=== PATIENT | female | born 1945 | race Hispanic/Latino ===

== ENCOUNTER 2016-10-21 09:54 | Inpatient (IN) | payer MEDICARE, OTHER ==
[2016-10-21 09:54] VITALS: BMI 26.5
--- NOTE | 2016-10-21 10:02 | C.PDOC ---
History Of Present Illness 71 y/o female presents to ED sent by PMD for non-healing infected left foot wound. Patient states wound getting worse for x2 months. Patietn denies fever or weakness but reports "a lot of pain" and intermittent N/V. No other complaints at this time. Time Seen by Provider: 10/21/16 10:01 Chief Complaint (Nursing): Abnormal Skin Integrity History Per: Patient History/Exam Limitations: no limitations Onset/Duration Of Symptoms: Days Location Of Injury: Left: Foot (Non-healed wound) Quality Of Symptoms: Painful Past Medical History Reviewed: Historical Data, Nursing Documentation, Vital Signs Vital Signs: Last Vital Signs Temp 98.0 F 10/22/16 16:00 Pulse 96 H 10/22/16 16:00 Resp 20 10/22/16 16:00 BP 114/57 L 10/22/16 16:00 Pulse Ox 97 10/22/16 16:00 - Medical History PMH: Anemia, Anxiety, CHF, Depression (BROTHER LAST YEAR), Diabetes, HTN, Hypercholesterolemia, Chronic Kidney Disease Surgical History: Appendectomy, Endoscopy (OCTOBER 2013) - [facility] Procedures ANESTH INJECT-SPIN CANAL (01/08/15) ANGIOPLASTY OF OTHER NON-CORONARY VESSEL(S) (03/01/14) ATHERECTOMY OF OTHER NON-CORONARY VESSEL(S) (03/01/14) DRAINAGE OF LEFT PLEURAL CAVITY, PERCUTANEOUS APPROACH (10/10/15) EXERCISE TREATMENT OF MUSCULOSK WHOLE USING ASSIST EQUIPMENT (10/17/15) GAIT TRAINING/AMBULAT TREATMENT USING ASSIST EQUIPMENT (10/17/15) HOME MANAGEMENT TREATMENT USING ASSIST EQUIPMENT (10/17/15) IMMOBILIZ/WOUND ATTN NEC (06/24/13) INJECT STEROID (01/08/15) INJECT/INFUSE NEC (01/08/14) INSEJ OF DRUG-ELUTING STENT(S) OF OTH PERIPHERAL VESSEL(S) (03/01/14) INSERTION OF TWO VASCULAR STENTS (03/01/14) INTRODUCE OF OTH ANTI-INFECT INTO PERIPH VEIN, PERC APPROACH (10/17/15) PROCEDURE ON SINGLE VESSEL (03/01/14) SPINAL CANAL INJECT NEC (01/08/15) VACCINATION NEC (11/29/14) Family History: States: Unknown Family Hx - Social History Hx Alcohol Use: No Hx Substance Use: No Review Of Systems Except As Marked, All Systems Reviewed And Found Negative. Constitutional: Negative for: Fever, Chills Cardiovascular: Negative for: Chest Pain Respiratory: Negative for: Shortness of Breath Gastrointestinal: Negative for: Nausea, Vomiting, Diarrhea Neurological: Negative for: Weakness, Numbness Physical Exam - Physical Exam Appears: Non-toxic, No Acute Distress Skin: Normal Color, Warm Head: Atraumatic, Normacephalic Oral Mucosa: Moist Gastrointestinal/Abdominal: Soft, No Tenderness, No Guarding, No Rebound Extremity: No Tenderness, Other (6cm LAC on left lateral foot, surrounding Erythema) Pulses: Left Dorsalis Pedis: Decreased, Right Dorsalis Pedis: Decreased Neurological/Psych: Oriented x3, Normal Speech, Normal Cognition, Normal Sensation ED Course And Treatment - Laboratory Results Result Diagrams: 10/22/16 07:18 10/22/16 07:18 O2 Sat by Pulse Oximetry: 99 (RA) Pulse Ox Interpretation: Normal Disposition - Disposition Disposition: HOSPITALIZED Disposition Time: 11:20 Condition: STABLE - Clinical Impression Clinical Impression: Cellulitis of foot, Peripheral vascular disease, Foot ulcer - PA / FLOOR STEWARD/STEWARDESS / Resident Statement MD/ has reviewed & agrees with the documentation as recorded. MD/ has examined the patient and agrees with the treatment plan. - Scribe Statement The provider has reviewed the documentation as recorded by the Reena Garcia All medical record entries made by the Reena were at my direction and personally dictated by me. I have reviewed the chart and agree that the record accurately reflects my personal performance of the history, physical exam, medical decision making, and the department course for this patient. I have also personally directed, reviewed, and agree with the discharge instructions and disposition.
[2016-10-21] MEDS ORDERED: Piperacill/Tazo 3.375gm in Dex 3.375 GM/50 ML BAG IVPB STA (10:16)
--- NOTE | 2016-10-21 10:59 | RAD ---
HISTORY: pre op COMPARISON: No prior. FINDINGS: LUNGS: No active pulmonary disease. PLEURA: No significant pleural effusion identified, no pneumothorax apparent. CARDIOVASCULAR: Cardiomegaly. No evidence of acute, significant cardiovascular disease. OSSEOUS STRUCTURES: No significant abnormalities. VISUALIZED UPPER ABDOMEN: Normal. OTHER FINDINGS: None. IMPRESSION: No active disease.
[2016-10-21 11:27] LABS: BASO # 0.1 K/uL (0.0-0.2); BASO % 0.9 % (0.0-2.0); EOS # 0.3 K/uL (0.0-0.7); EOS % 2.6 % (0.0-4.0); HEMATOCRIT 30.9 % (34.0-47.0); LYMPH # 1.7 K/uL (1.0-4.3); LYMPH % 14.3 % (20.0-40.0); MEAN CELL VOLUME 86.5 fL (81.0-99.0); MEAN CORPUSCULAR HEMOGLOBIN 28.5 pg (27.0-31.0); MEAN PLATELET VOLUME 10.3 fL (7.2-11.7); MONO # 1.1 K/uL (0.0-0.8); MONO % 9.1 % (0.0-10.0); RED CELL DISTRIBUTION WIDTH 12.4 % (11.5-14.5); WHITE BLOOD COUNT 11.8 K/uL (4.8-10.8)
--- NOTE | 2016-10-21 11:32 | CP.PCM.HP ---
History of Present Illness - History of Present Illness History of Present Illness: CC: Dr. Melendez sent me in HPI: 71 yo female with PMHx of CKD stage III, CHF?, HTN, CAD, DM2, anxiety, anemia of chronic disease, chronic low back pain presents to the ED at the instruction of Dr. Melendez for care for an ulcer on her left foot. assisted with any clarification in Ukrainian. Pt states that ulcer began as a cut on her foot 3 months ago and it became progressively worse for the past month. She reports it hurts at times, especially when she walks on it or tried to place any pressure. She states it only became as bad as it is now for the past month. As per pt, she was recently seen at [facility] for the same wound and was sent home with topical collagenase santyl. Patient was seen by Dr. eMlendez in his office on Tuesday 10/17 and told to come in today 10/21 for wound debridement. Pt reports no pain other than at the wound site, with some pain in the area of the foot surrounding the wound as well. Pt's reports that her sugars are "usually pretty good" and states they are typically in the 150s or higher. Pt denies fever, chills, headache, dizziness, vision changes, sore throat, chest pain, palpitations, shortness of breath, cough, abd pain, nausea, vomiting, or bowel/bladder pain. She does admit to some leg swelling and pain at the wound site. Patient denies any recent travel/sick contacts. PMD: Dr. Gonzalez ALL: NKDA PMH: CKD stage III, CHF?, HTN, CAD, DM2, anxiety, anemia of chronic disease, chronic low back pain Surgery: appendectomy Medications: Hydralazine 50mg, Losartan potassium 100mg, HCTZ 25mg, Allopurinol 100mg, Torsemide 100mg, Atorvastatin 20mg, Lantus, Iron 65mg, Vit D3 5000IU, Bactrim DS, Esomeprazole 40mg Family history: not contributory Social History: Lives with in [place] , denies any smoking , ETOH or drug abuse ROS: Pt denies fever, chills, headache, dizziness, vision changes, chest pain, shortness of breath, cough, nausea, vomiting, or bowel/bladder pain. Present on Admission - Present on Admission Any Indicators Present on Admission: No Review of Systems - Constitutional Constitutional: As Per HPI. absent: Chills, Fever - EENT Eyes: As Per HPI. absent: Change in Vision Ears: As Per HPI. absent: Dizziness Nose/Mouth/Throat: As Per HPI. absent: Dysphagia, Sore Throat - Cardiovascular Cardiovascular: As Per HPI, Leg Edema, Pedal Edema. absent: Chest Pain, Dyspnea , Dyspnea on Exertion, Palpitations - Respiratory Respiratory: As Per HPI. absent: Cough, Dyspnea on Exertion, Wheezing, Chest Congestion - Gastrointestinal Gastrointestinal: As Per HPI. absent: Abdominal Pain, Constipation, Diarrhea, Nausea, Vomiting - Genitourinary Genitourinary: As Per HPI. absent: Dysuria, Hematuria, Pyuria - Musculoskeletal Musculoskeletal: As Per HPI. absent: Back Pain, Numbness, Stiffness, Tingling - Integumentary Integumentary: As Per HPI, Swelling (b/l feet), Wounds (L heel). absent: Dry Skin - Neurological Neurological: As Per HPI. absent: Dizziness, Headaches - Endocrine Endocrine: As Per HPI. absent: Polydipsia, Polyphagia, Polyuria - Hematologic/Lymphatic Hematologic: As Per HPI. absent: Easy Bleeding, Easy Bruising, Lymphadenopathy Past Patient History - Infectious Disease Hx of Infectious Diseases: None - Tetanus Immunizations Tetanus Immunization: Unknown - Past Medical History & Family History Past Medical History?: Yes - Past Social History Smoking Status: Never Smoked - CARDIAC Hx Congestive Heart Failure: Yes Hx Hypercholesterolemia: Yes Hx Hypertension: Yes Hx Peripheral Vascular Disease: Yes - PULMONARY Hx Respiratory Disorders: No - NEUROLOGICAL Hx Neurological Disorder: No - HEENT Hx Cataracts: Yes - RENAL Hx Chronic Kidney Disease: Yes - ENDOCRINE/METABOLIC Hx Endocrine Disorders: Yes Hx Diabetes Mellitus Type 2: Yes - HEMATOLOGICAL/ONCOLOGICAL Hx Anemia: Yes Hx Human Immunodeficiency Virus (HIV): No - INTEGUMENTARY Hx Dermatological Problems: No (VERY PALE) - MUSCULOSKELETAL/RHEUMATOLOGICAL Hx Degenerative Joint Disease: Yes Hx Falls: No - GENITOURINARY/GYNECOLOGICAL Hx Urinary Tract Infection: Yes - PSYCHIATRIC Hx Anxiety: Yes Hx Depression: Yes (BROTHER LAST YEAR) Hx Substance Use: No - SURGICAL HISTORY Hx Appendectomy: Yes - ANESTHESIA Hx Anesthesia: Yes Hx Anesthesia Reactions: No Hx Malignant Hyperthermia: No Meds Allergies/Adverse Reactions: Allergies Allergy/AdvReac Type Severity Reaction Status Date / Time No Known Allergies Allergy Verified 10/21/16 09:57 Physical Exam - Constitutional Appears: Non-toxic, No Acute Distress - Head Exam Head Exam: ATRAUMATIC, NORMAL INSPECTION, NORMOCEPHALIC - Eye Exam Eye Exam: EOMI, Normal appearance, PERRL. absent: Conjunctival injection, Scleral icterus Pupil Exam: NORMAL ACCOMODATION - ENT Exam ENT Exam: Mucous Membranes Moist - Neck Exam Neck exam: Positive for: Normal Inspection. Negative for: Tenderness - Respiratory Exam Respiratory Exam: Clear to Auscultation Bilateral, NORMAL BREATHING PATTERN. absent: Accessory Muscle Use, Rales, Rhonchi, Wheezes, Respiratory Distress - Cardiovascular Exam Cardiovascular Exam: REGULAR RHYTHM, RRR, +S1, +S2 - GI/Abdominal Exam GI & Abdominal Exam: Normal Bowel Sounds, Soft. absent: Firm, Guarding, Rigid, Tenderness - Extremities Exam Extremities exam: Positive for: pedal edema (L > R), tenderness (LLE), pedal pulses present (present but decreased pulses b/l) Additional comments: 6cm X 3 cm open wound non draining with erythematous border - Back Exam Back exam: NORMAL INSPECTION. absent: rash noted - Neurological Exam Neurological exam: Alert, Oriented x3 - Psychiatric Exam Psychiatric exam: Anxious - Skin Skin Exam: Dry, Erythema (L lateral foot) Results - Vital Signs Recent Vital Signs: Last Vital Signs Temp 98.8 F 10/21/16 09:58 Pulse 70 10/21/16 09:58 Resp 17 10/21/16 09:58 BP 171/67 H 10/21/16 09:58 Pulse Ox 99 10/21/16 10:02 - Labs Result Diagrams: 10/21/16 11:22 10/21/16 12:18 Assessment & Plan - Assessment and Plan (Free Text) Assessment: 71 yo female with PMHx of CKD stage III, CHF?, HTN, CAD, DM2, anxiety, anemia of chronic disease, chronic low back pain presents to the ED at the instruction of Dr. Melendez for care for an ulcer on her left foot. Plan: Left lateral foot ulcer -likely diabetic foot ulcer -Velazco stage 2 diabetic foot ulcer without infection/ischemia noted on Left lateral aspect of foot -Left heel x-ray: limited vsiualization of anterior calcaneus. No acute displaced fracture. -possible PAD- f/u arterial duplex scan and arterial PVR/SEG -f/u blood culture -SCDs c/i -Zosyn 2.25gm IVPB Q8H renally dosed -Vancomycin 500mg IVPB Qdaily renally dosed -Lasix 40mg IVP BID for 2 days for LE edema -Physical therapy -ID: Dr Wellington consulted -Surgery: Dr Melendez consulted CKD Stage III -BUN:Cr on admission 75:2 with estimated GFR 25% -Nephrology: Dr Ambrose consulted HTN -Hydralazine 50mg po bid -HCTZ 25mg po daily -Losartan 100mg po daily -Torsemide 100mg po daily CAD -Hydralazine 50mg po bid -HCTZ 25mg po daily -Losartan 100mg po daily -Crestor 10mg po hs -f/u Lipid panel DM2 -RISS -Accucheck ACHS -f/u HgbA1c Anxiety -Monitor Anemia of chronic disease -H&H on admission is 10.2 and 30.9 -Monitor for acute changes -Dr. Ambrose nephrology consulted Chronic LBP -no acute complaints on admission -Monitor CHF? -As per medical records patient has hx of CHF -Echo in 2016 in medical records is unremarkable with normal EF -no acute complaints this admission -continue home med Torsemide 100mg po daily -Lasix 40mg IVP BID for 2 days PPX -Heparin 5000U SC Q12 -Protonix 40mg po daily -Heart healthy moderate consistent carb diet -SCDs c/i -PT Plan discussed with Dr. Ramez Barnes PGY1
[2016-10-21] MEDS ORDERED: Piperacillin/Tazobact 3.375 gm 100 ML IVPB ONE (11:44)
--- NOTE | 2016-10-21 12:47 | RAD ---
PROCEDURE: Radiographs of the left calcaneus/hindfoot. HISTORY: foot wound COMPARISON: None available. TECHNIQUE: Frontal and lateral radiographs of the calcaneus. FINDINGS: Limited visualization of the anterior calcaneus. No acute displaced fracture or joint dislocation. No calcaneal spur. Dense vascular calcification. Soft tissues appear grossly unremarkable. No evidence of radiopaque foreign body. IMPRESSION: Limited visualization of the anterior calcaneus. No acute displaced fracture identified. Please note MRI without and with IV contrast is most sensitive in detection of osteomyelitis.
[2016-10-21 12:52] LABS: POTASSIUM 3.7 mmol/L (3.6-5.2)
[2016-10-21 12:54] LABS: ALB/GLOB RATIO 0.9 (1.0-2.1); BILIRUBIN,TOTAL 0.5 mg/dL (0.2-1.3); TOTAL PROTEIN 5.8 g/dL (6.3-8.3)
[2016-10-21 12:55] LABS: CALCIUM 7.2 mg/dl (8.6-10.4)
[2016-10-21] MEDS ORDERED: Sodium Chloride 0.45% 1,000 ML IV SCH (17:30)
[2016-10-21] MEDS: Pantoprazole 40 mg EC Tab PO SCH (17:48)
[2016-10-21] MEDS: (Novolog) Insulin Aspart, Recombinant 100 u/ml 10 ml vial SC SCH ×2 (17:48→21:17)
[2016-10-21] MEDS: Piperacillin/Tazobact 2.25 GM in Sodium Chloride 100 ML IVPB SCH (21:00)
--- NOTE | 2016-10-21 21:06 | CP.PCM.CON ---
History of Present Illness - History of Present Illness History of Present Illness: REASONS FOR CONSULT : CKD STAGE 4 .. WITH eGFR 25 ML / M ANEMIA OF CKD .. PT RECIEVES RANDALL AT MY OFFICE ALL PREVIOUS EMR REVIEWD .. LABS REVIEWED THOROUGHLY .. PT WAS SEEN AND EXAMNED PT IS WELL KNOWN TO ME , WITH MULTIPLE MEDICAL PROBLEMS AND FREQUENT ADMISSIONS HPI: 71 yo female with PMHx of CKD stage III, CHF?, HTN, CAD, DM2, anxiety, anemia of chronic disease, chronic low back pain presents to the ED at the instruction of Dr. Melendez for care for an ulcer on her left foot. assisted with any clarification in Pashto. Pt states that ulcer began as a cut on her foot 3 months ago and it became progressively worse for the past month. She reports it hurts at times, especially when she walks on it or tried to place any pressure. She states it only became as bad as it is now for the past month. As per pt, she was recently seen at [facility] for the same wound and was sent home with topical collagenase santyl. Patient was seen by Dr. Melendez in his office on Tuesday 10/17 and told to come in today 10/21 for wound debridement. Pt reports no pain other than at the wound site, with some pain in the area of the foot surrounding the wound as well. Pt's reports that her sugars are "usually pretty good" and states they are typically in the 150s or higher. Pt denies fever, chills, headache, dizziness, vision changes, sore throat, chest pain, palpitations, shortness of breath, cough, abd pain, nausea, vomiting, or bowel/bladder pain. She does admit to some leg swelling and pain at the wound site. Patient denies any recent travel/sick contacts. PMD: Dr. Gonzalez ALL: NKDA PMH: CKD stage III, CHF?, HTN, CAD, DM2, anxiety, anemia of chronic disease, chronic low back pain Surgery: appendectomy Medications: Hydralazine 50mg, Losartan potassium 100mg, HCTZ 25mg, Allopurinol 100mg, Torsemide 100mg, Atorvastatin 20mg, Lantus, Iron 65mg, Vit D3 5000IU, Bactrim DS, Esomeprazole 40mg Family history: not contributory Social History: Lives with in [place] , denies any smoking , ETOH or drug abuse ROS: Pt denies fever, chills, headache, dizziness, vision changes, chest pain, shortness of breath, cough, nausea, vomiting, or bowel/bladder pain. Past Patient History - Infectious Disease Hx of Infectious Diseases: None - Tetanus Immunizations Tetanus Immunization: Unknown - Past Medical History & Family History Past Medical History?: Yes - Past Social History Smoking Status: Never Smoked - CARDIAC Hx Congestive Heart Failure: Yes Hx Hypercholesterolemia: Yes Hx Hypertension: Yes Hx Peripheral Vascular Disease: Yes - PULMONARY Hx Respiratory Disorders: No - NEUROLOGICAL Hx Neurological Disorder: No - HEENT Hx Cataracts: Yes - RENAL Hx Chronic Kidney Disease: Yes - ENDOCRINE/METABOLIC Hx Endocrine Disorders: Yes Hx Diabetes Mellitus Type 2: Yes - HEMATOLOGICAL/ONCOLOGICAL Hx Anemia: Yes Hx Human Immunodeficiency Virus (HIV): No - INTEGUMENTARY Hx Dermatological Problems: No (VERY PALE) - MUSCULOSKELETAL/RHEUMATOLOGICAL Hx Degenerative Joint Disease: Yes Hx Falls: No - GENITOURINARY/GYNECOLOGICAL Hx Urinary Tract Infection: Yes - PSYCHIATRIC Hx Anxiety: Yes Hx Depression: Yes (BROTHER LAST YEAR) Hx Substance Use: No - SURGICAL HISTORY Hx Appendectomy: Yes - ANESTHESIA Hx Anesthesia: Yes Hx Anesthesia Reactions: No Hx Malignant Hyperthermia: No Meds Allergies/Adverse Reactions: Allergies Allergy/AdvReac Type Severity Reaction Status Date / Time No Known Allergies Allergy Verified 10/21/16 09:57 - Medications Medications: Current Medications Furosemide (Lasix) 40 mg IVP BID [facility] Stop: 10/23/16 00:00 Last Admin: 10/21/16 19:00 Dose: 40 mg Heparin Sodium (Porcine) (Heparin) 5,000 units SC Q12 [facility] Hydralazine HCl (Apresoline) 50 mg PO BID [facility] Last Admin: 10/21/16 17:48 Dose: 50 mg Hydrochlorothiazide (Hydrodiuril) 25 mg PO DAILY [facility] Piperacillin Sod/Tazobactam (Sod 2.25 gm/ Sodium Chloride) 100 mls @ 200 mls/ hr IVPB Q8H [facility] Vancomycin HCl 500 mg/ Sodium (Chloride) 100 mls @ 100 mls/hr IVPB DAILY [facility] Sodium Chloride (Sodium Chloride 0.45%) 1,000 mls @ 60 mls/hr IV .[id number] [facility] Last Admin: 10/21/16 17:47 Dose: 60 mls/hr Insulin Aspart (Novolog) 0 unit SC ACHS [facility] PRN Reason: Protocol Last Admin: 10/21/16 17:48 Dose: Not Given Losartan Potassium (Cozaar) 100 mg PO DAILY [facility] Pantoprazole Sodium (Protonix Ec Tab) 40 mg PO DAILY [facility] Last Admin: 10/21/16 17:48 Dose: 40 mg Rosuvastatin Calcium (Crestor) 10 mg PO HS [facility] Torsemide (Demadex) 100 mg PO DAILY [facility] Results - Vital Signs Recent Vital Signs: Last Vital Signs Temp 98.6 F 10/21/16 16:00 Pulse 92 H 10/21/16 16:00 Resp 20 10/21/16 16:00 BP 146/80 10/21/16 19:00 Pulse Ox 97 10/21/16 16:00 - Labs Result Diagrams: 10/21/16 11:22 10/21/16 12:18 Labs: Laboratory Results - last 24 hr 10/21/16 10/21/16 10/21/16 11:22 12:18 12:18 WBC 11.8 H RBC 3.57 L Hgb 10.2 L Hct 30.9 L MCV 86.5 D MCH 28.5 MCHC 33.0 RDW 12.4 Plt Count 327 MPV 10.3 Neut % (Auto) 73.1 Lymph % (Auto) 14.3 L [place] % (Auto) 9.1 Eos % (Auto) 2.6 Baso % (Auto) 0.9 Neut # 8.6 H Lymph # 1.7 York # 1.1 H Eos # 0.3 Baso # 0.1 PT 10.6 INR 1.0 APTT 27 Sodium 135 Potassium 3.7 Chloride 104 Carbon Dioxide 20 L Anion Gap 15 BUN 75 H Creatinine 2.0 H Est GFR ( Amer) 30 Est GFR (Non-Af Amer) 25 POC Glucose (mg/dL) Random Glucose 141 H Calcium 7.2 L Total Bilirubin 0.5 AST 19 ALT 17 Alkaline Phosphatase 67 Total Protein 5.8 L Albumin 2.8 L Globulin 3.0 Albumin/Globulin Ratio 0.9 L 10/21/16 16:32 WBC RBC Hgb Hct MCV MCH MCHC RDW Plt Count MPV Neut % (Auto) Lymph % (Auto) York % (Auto) Eos % (Auto) Baso % (Auto) Neut # Lymph # York # Eos # Baso # PT INR APTT Sodium Potassium Chloride Carbon Dioxide Anion Gap BUN Creatinine Est GFR ( Amer) Est GFR (Non-Af Amer) POC Glucose (mg/dL) 78 Random Glucose Calcium Total Bilirubin AST ALT Alkaline Phosphatase Total Protein Albumin Globulin Albumin/Globulin Ratio Assessment & Plan - Assessment and Plan (Free Text) Assessment: CKD .. STAGE 4 .. eGFR AROUND 25 ML / M .. STABLE ANEMIA OF CKD .. RECIEVES RANDALL IN MY OFFICE Q 3 WEEKS FOR HGB < 10 .. HER HGB NOW IS OK R/O OTHER CAUSES FOR ANEMIA LIKE IRON DEFFICIENCY HYPERURECEMIA .. ON ALLOPURINOL .. WITH AIM OF URIC ACID < 6.0 INFECTED DIABETIC FOOT .. HER ADMITTING DIAGNOSIS .. MULTIPLE CO MORBIDITIES P : C/O CURRENT CARE C/O PRESENT MEDS RENAL AND DIABETIC DIET .. 2 G NA .. 2 G K .. 50 G PROTEIN .. 1800 KELLEY ADA .. 1000 CC FR NEEDS DEITARY CONSULT AND COUNSELING C/O DIURETICS FOR EDEMA .. WELL FR THANK Lisandra ASH F/U - Date & Time Date: 10/21/16 Time: 19:00
[2016-10-21] MEDS: Ergocalciferol 50,000 Intl Units Cap PO SCH (21:56)
[2016-10-22] MEDS ORDERED: Oxycodone/Acetaminophen 5/325 mg Tab PO STA (01:24)
[2016-10-22] MEDS: Piperacillin/Tazobact 2.25 GM in Sodium Chloride 100 ML IVPB SCH ×3 (06:00→21:15)
--- NOTE | 2016-10-22 07:04 | CP.PCM.PN ---
<MollyKacey - Last Filed: 10/22/16 18:41> Subjective - Date & Time of Evaluation Date of Evaluation: 10/22/16 Time of Evaluation: 08:45 - Subjective Subjective: PGY1 Medicine note for Dr. Myrick Pt seen and examined at bedside. Nursing reports pt had some pain overnight and was given percocet, which resolved the pain. Today, pt is nauseous and dry heaving without bringing anything up. Pt was given zofran and breakfast, since she states she has not eaten since breakfast the previous day although dinner was ordered. Pt states her heel still hurts, but not as badly as it did last night. Pt denies fever, chills, headache, dizziness, chest pain, palpitations, shortness of breath, cough, abdominal pain or leg swelling. Objective - Vital Signs/Intake and Output Vital Signs (last 24 hours): Temp Pulse Resp BP Pulse Ox 98.1 F 77 20 146/61 96 10/22/16 00:03 10/22/16 00:03 10/22/16 00:03 10/22/16 00:03 10/22/16 00:03 Intake and Output: 10/22/16 10/22/16 06:59 18:59 Intake Total 400 Balance 400 - Medications Medications: Current Medications Ascorbic Acid (Vitamin C 500 Mg Tab) 500 mg PO DAILY [facility] Ergocalciferol (Drisdol 50,000 Intl Units Cap) 1 cap PO Q7D [facility] Last Admin: 10/21/16 21:56 Dose: 1 cap Furosemide (Lasix) 40 mg IVP BID [facility] Stop: 10/23/16 00:00 Last Admin: 10/21/16 19:00 Dose: 40 mg Heparin Sodium (Porcine) (Heparin) 5,000 units SC Q12 [facility] Last Admin: 10/21/16 21:06 Dose: 5,000 units Hydralazine HCl (Apresoline) 50 mg PO BID [facility] Last Admin: 10/21/16 17:48 Dose: 50 mg Hydrochlorothiazide (Hydrodiuril) 25 mg PO DAILY [facility] Piperacillin Sod/Tazobactam (Sod 2.25 gm/ Sodium Chloride) 100 mls @ 200 mls/ hr IVPB Q8H [facility] Last Admin: 10/22/16 06:00 Dose: 200 mls/hr Vancomycin HCl 500 mg/ Sodium (Chloride) 100 mls @ 100 mls/hr IVPB DAILY [facility] Insulin Aspart (Novolog) 0 unit SC ACHS [facility] PRN Reason: Protocol Last Admin: 10/21/16 21:17 Dose: Not Given Losartan Potassium (Cozaar) 100 mg PO DAILY [facility] Pantoprazole Sodium (Protonix Ec Tab) 40 mg PO DAILY [facility] Last Admin: 10/21/16 17:48 Dose: 40 mg Rosuvastatin Calcium (Crestor) 10 mg PO HS [facility] Last Admin: 10/21/16 21:06 Dose: 10 mg Sevelamer Carbonate (Renvela) 0.8 gm PO TIDCC ELINA Torsemide (Demadex) 100 mg PO DAILY [facility] Vitamin B Complex/Vit C/Folic Acid (Nephro-Alonzo) 1 tab PO DAILY [facility] - Labs Labs: 10/21/16 11:22 10/21/16 12:18 PT 10.6 SECONDS (9.7-12.2) 10/21/16 12:18 INR 1.0 10/21/16 12:18 APTT 27 SECONDS (21-34) 10/21/16 12:18 - Constitutional Appears: Non-toxic, In Acute Distress (nauseous) - Head Exam Head Exam: ATRAUMATIC, NORMAL INSPECTION, NORMOCEPHALIC - Eye Exam Eye Exam: Normal appearance. absent: Conjunctival injection, Scleral icterus Pupil Exam: NORMAL ACCOMODATION - ENT Exam ENT Exam: Mucous Membranes Moist - Neck Exam Neck Exam: Full ROM, Normal Inspection - Respiratory Exam Respiratory Exam: Clear to Ausculation Bilateral. absent: Accessory Muscle Use , Rales, Rhonchi, Wheezes, Respiratory Distress - Cardiovascular Exam Cardiovascular Exam: REGULAR RHYTHM, RRR, +S1, +S2. absent: Murmur - GI/Abdominal Exam GI & Abdominal Exam: Soft, Normal Bowel Sounds. absent: Firm, Guarding, Rigid, Tenderness - Extremities Exam Extremities Exam: Normal Capillary Refill, Pedal Edema (L > R) Additional comments: 6cm X 3 cm Velazco 2 diabetic ulcer open non draining with erythematous border decreased pulses b/l worse on left - Back Exam Back Exam: NORMAL INSPECTION. absent: rash noted - Neurological Exam Neurological Exam: Alert, Awake, Oriented x3 - Psychiatric Exam Psychiatric exam: Anxious - Skin Skin Exam: Dry, Intact, Normal Color, Warm Assessment and Plan - Assessment and Plan (Free Text) Assessment: 71 yo female with PMHx of CKD stage III, CHF?, HTN, CAD, DM2, anxiety, anemia of chronic disease, chronic low back pain presents to the ED at the instruction of Dr. Melendez for care for an ulcer on her left foot Plan: Left lateral foot ulcer -likely diabetic foot ulcer -Velazco stage 2 diabetic foot ulcer without infection/ischemia noted on Left lateral aspect of foot -Left heel x-ray: limited vsiualization of anterior calcaneus. No acute displaced fracture. -possible PAD- f/u arterial duplex scan and arterial PVR/SEG -blood culture prelim negative -SCDs c/i -Zosyn 2.25gm IVPB Q8H renally dosed -Vancomycin 500mg IVPB Qdaily renally dosed -Lasix 40mg IVP BID for 2 days for LE edema -Tramadol 25mg po q6 PRN pain -Tylenol with codeine 1 po q6 PRN pain -Ketoconazole cream 2gm top bid -Venous dopplers negative b/l -Physical therapy -Wound care -ID: Dr Wellington consulted -Surgery: Dr Melendez consulted Peripheral Arterial Disease -Arterial PVR/SEG: Right negative; Left secerely decreased perfusion of the LLE noted at superficial, popliteal, and tibial A levels -LE Arterial scan: R possible occlusion of R posterior tibial A [50-75% stenosis of right mid popliteal A]; L possible occlusion of L proximal and sital posterior and proximal anterior tibial arteries; greater than 75% stenosis of the left distal superficial femoral and mid popliteal arteries; 50- 75% stenosis of L proximal poplitearl artery; recommend angiogram with endovascular repair -IR: Dr. Roman consulted CKD Stage IV -BUN:Cr on admission 75:2 with estimated GFR 25% -Nephrology: Dr Ambrose consulted HTN -Hydralazine 50mg po bid -HCTZ 25mg po daily -Losartan 100mg po daily -Torsemide 100mg po daily CAD -Hydralazine 50mg po bid -HCTZ 25mg po daily -Losartan 100mg po daily -Crestor 10mg po hs -Lipid panel TG 248 Cholesterol 217 LDL 113 HDL 39 DM2 -RISS -Accucheck ACHS -HgbA1c 12.2 Anxiety -Monitor Anemia of chronic disease -H&H on admission is 10.2 and 30.9 -Monitor for acute changes -Dr. Ambrose nephrology consulted Chronic LBP -no acute complaints on admission -Monitor CHF? -As per medical records patient has hx of CHF -Echo in 2016 in medical records is unremarkable with normal EF -no acute complaints this admission -continue home med Torsemide 100mg po daily -Lasix 40mg IVP BID for 2 days PPX -Heparin 5000U SC Q12 -Protonix 40mg po daily -Heart healthy moderate consistent carb diet -SCDs c/i -PT Plan discussed with Dr. Ramez Barnes PGY1 <Benson Myrick Jr. - Last Filed: 10/25/16 13:29> Objective - Vital Signs/Intake and Output Vital Signs (last 24 hours): Temp Pulse Resp BP Pulse Ox 98 F 93 H 20 160/63 H 98 10/25/16 08:00 10/25/16 08:00 10/25/16 08:00 10/25/16 08:00 10/25/16 08:00 Intake and Output: 10/25/16 10/25/16 06:59 18:59 Intake Total 820 Balance 820 - Medications Medications: Current Medications Acetylcysteine (Acetylcysteine 20%) 6 ml PO BID [facility] Last Admin: 10/25/16 11:32 Dose: 6 ml Alprazolam (Xanax) 0.25 mg PO Q8H PRN PRN Reason: Anxiety Stop: 10/30/16 07:20 Last Admin: 10/24/16 00:11 Dose: 0.25 mg Ascorbic Acid (Vitamin C 500 Mg Tab) 500 mg PO DAILY [facility] Last Admin: 10/25/16 09:59 Dose: 500 mg Brimonidine Tartrate (Alphagan 0.2% Opht) 0 ml OD TID [facility] Last Admin: 10/25/16 09:59 Dose: 1 applic Cilostazol (Pletal) 50 mg PO BID [facility] Last Admin: 10/25/16 10:10 Dose: 50 mg Clotrimazole (Lotrimin 1%) 0 gm TOP BID [facility] Last Admin: 10/25/16 10:10 Dose: 1 applic Ergocalciferol (Drisdol 50,000 Intl Units Cap) 1 cap PO Q7D [facility] Last Admin: 10/21/16 21:56 Dose: 1 cap Escitalopram Oxalate (Lexapro) 10 mg PO DAILY [facility] Last Admin: 10/25/16 09:58 Dose: 10 mg Heparin Sodium (Porcine) (Heparin) 5,000 units SC Q12 [facility] Last Admin: 10/25/16 09:59 Dose: 5,000 units Hydralazine HCl (Apresoline) 50 mg PO BID [facility] Last Admin: 10/25/16 09:59 Dose: 50 mg Piperacillin Sod/Tazobactam (Sod 2.25 gm/ Sodium Chloride) 100 mls @ 200 mls/ hr IVPB Q8H [facility] Last Admin: 10/25/16 05:00 Dose: 200 mls/hr Vancomycin HCl 500 mg/ Sodium (Chloride) 100 mls @ 100 mls/hr IVPB DAILY [facility] Last Admin: 10/25/16 12:11 Dose: 100 mls/hr Sodium Chloride (Sodium Chloride 0.45%) 1,000 mls @ 80 mls/hr IV .[id number] [facility] Last Admin: 10/25/16 12:22 Dose: Not Given Insulin Aspart (Novolog) 0 unit SC ACHS [facility] PRN Reason: Protocol Last Admin: 10/25/16 12:40 Dose: 12 unit Insulin Glargine (Lantus) 15 unit SC HS [facility] Last Admin: 10/24/16 21:20 Dose: 15 u Latanoprost (Xalatan Opht) 0 ml OD HS [facility] Last Admin: 10/24/16 21:15 Dose: 2.5 ml Ondansetron HCl (Zofran Inj) 4 mg IVP Q6H [facility] Last Admin: 10/25/16 12:41 Dose: 4 mg Pantoprazole Sodium (Protonix Ec Tab) 40 mg PO DAILY [facility] Last Admin: 10/25/16 09:58 Dose: 40 mg Rosuvastatin Calcium (Crestor) 10 mg PO HS [facility] Last Admin: 10/24/16 21:23 Dose: 10 mg Sevelamer Carbonate (Renvela) 0.8 gm PO TIDCC [facility] Last Admin: 10/25/16 12:41 Dose: 0.8 gm Tramadol HCl (Ultram) 25 mg PO Q6H PRN PRN Reason: PAIN 1-10 Last Admin: 10/25/16 06:14 Dose: 25 mg Vitamin B Complex/Vit C/Folic Acid (Nephro-Alonzo) 1 tab PO DAILY [facility] Last Admin: 10/25/16 09:58 Dose: 1 tab - Labs Labs: 10/25/16 07:00 10/25/16 07:00 PT 10.9 SECONDS (9.7-12.2) 10/23/16 11:28 INR 1.0 10/23/16 11:28 APTT 30 SECONDS (21-34) 10/23/16 11:28 Attending/Attestation - Attestation I have personally seen and examined this patient.: Yes I have fully participated in the care of the patient.: Yes I have reviewed all pertinent clinical information, including history, physical exam and plan: Yes Notes (Text): 10/25/16 13:28 Resident note and plan of care discussed and reviewed, agree with findings and plan
[2016-10-22 07:35] LABS: BASO # 0.1 K/uL (0.0-0.2); BASO % 1.2 % (0.0-2.0); EOS # 0.4 K/uL (0.0-0.7); EOS % 4.7 % (0.0-4.0); HEMATOCRIT 31.5 % (34.0-47.0); LYMPH % 11.7 % (20.0-40.0); MEAN CELL VOLUME 85.4 fL (81.0-99.0); MEAN PLATELET VOLUME 10.2 fL (7.2-11.7); MONO # 0.8 K/uL (0.0-0.8); MONO % 10.1 % (0.0-10.0); RED CELL DISTRIBUTION WIDTH 12.7 % (11.5-14.5); WHITE BLOOD COUNT 8.2 K/uL (4.8-10.8)
[2016-10-22 07:57] LABS: POTASSIUM 3.9 mmol/L (3.6-5.2)
[2016-10-22 07:59] LABS: BILIRUBIN,TOTAL 0.5 mg/dL (0.2-1.3); TOTAL PROTEIN 6.8 g/dL (6.3-8.3)
[2016-10-22 08:00] LABS: CALCIUM 9.1 mg/dl (8.6-10.4); MAGNESIUM 2.1 mg/dL (1.6-2.3)
[2016-10-22] MEDS: Sevelamer Carb 0.8 gm/Packet PO SCH ×3 (08:06→17:56)
[2016-10-22] MEDS: (Novolog) Insulin Aspart, Recombinant 100 u/ml 10 ml vial SC SCH ×4 (08:56→21:53)
[2016-10-22] MEDS: Pantoprazole 40 mg EC Tab PO SCH (10:49)
[2016-10-22] MEDS: Multivitamin Vitamin B Complex (Nephro-Vite) Tab PO SCH (10:51)
--- NOTE | 2016-10-22 14:11 | VASCLAB ---
PROCEDURE: Lower Extremity Venous Duplex Exam. HISTORY: Leg pain PRIORS: None. TECHNIQUE: Bilateral common femoral, femoral, popliteal and posterior tibial, peroneal and great saphenous veins were evaluated. Flow was assessed with color Doppler, compressibility, assessment of phasic flow and augmentation response. Report prepared by ANGELA Barkley, RVT FINDINGS: RIGHT: 1. Common Femoral Vein: 1.1. Compressibility - Fully compressible: Thrombus - None : Flow - Phasic: Augmentation -Normal: Reflux - None. 2. Femoral Vein: 2.1. Compressibility - Fully compressible: Thrombus - None : Flow - Phasic: Augmentation -Normal: Reflux - None. 3. Popliteal Vein: 3.1. Compressibility - Fully compressible: Thrombus - None : Flow - Phasic: Augmentation -Normal: Reflux - None. 4. Posterior Tibial Vein: 4.1. Compressibility - Fully compressible: Thrombus - None: Flow - Phasic: Augmentation -Normal: Reflux - None. 5. Peroneal Vein: 5.1. Compressibility - Fully compressible: Thrombus - None: Flow - Phasic: Augmentation -Normal: Reflux - None. 6. Great Saphenous Vein: 6.1. Compressibility - Fully compressible: Thrombus - None: Flow - Phasic: Augmentation - Normal: Reflux - None. LEFT: 1. Common Femoral Vein: 1.1. Compressibility - Fully compressible: Thrombus - None: Flow - Phasic: Augmentation -Normal: Reflux - None. 2. Femoral Vein: 2.1. Compressibility - Fully compressible: Thrombus - None: Flow - Phasic: Augmentation -Normal: Reflux - None. 3. Popliteal Vein: 3.1. Compressibility - Fully compressible: Thrombus - None : Flow - Phasic: Augmentation -Normal: Reflux - None. 4. Posterior Tibial Vein: 4.1. Compressibility - Fully compressible: Thrombus - None: Flow - Phasic: Augmentation -Normal: Reflux - None. 5. Peroneal Vein: 5.1. Compressibility - Fully compressible: Thrombus - None: Flow - Phasic: Augmentation -Normal: Reflux - None. 6. Great Saphenous Vein: 6.1. Compressibility - Fully compressible: Thrombus - None: Flow - Phasic: Augmentation - Normal: Reflux - None. OTHER FINDINGS: Right: None significant. Left: None significant. IMPRESSION: Right: No evidence of deep or superficial vein thrombosis of the right lower extremity. Normal valve function noted of the right side. Left: No evidence of deep or superficial vein thrombosis of the left lower extremity. Normal valve function noted of the left side.
--- NOTE | 2016-10-22 14:12 | VASCLAB ---
STUDY DESCRIPTION: HISTORY: swelling and pain PRIORS: None. TECHNIQUE: Pulse volume recording waveforms and segmental pressures of bilateral lower extremities at multiple levels were obtained. Ankle Brachial Indices (ABIs) were calculated. Report prepared by ANGELA Barkley, RVT RIGHT LOWER EXTREMITY: * Brachial artery: Pressure - 216 mmHg. * High thigh: Pressure - 220 mmHg: Ratio - NC: PVR waveform - Pulsatile * Low thigh: Pressure - 220 mmHg: Ratio - NC PVR waveform: Pulsatile * Calf: Pressure - 220 mmHg: Ratio - NC PVR waveform: Pulsatile * Posterior tibial Artery: Pressure - 197 mmHg: Ratio - 0.91 PVR waveform: Pulsatile * Dorsalis pedis Artery: Pressure - 211 mmHg: Ratio - 0.98 PVR waveform: Pulsatile * Great toe: Pressure - mmHg: Ratio - PVR waveform: Ankle brachial index (CUCO): 0.98 LEFT LOWER EXTREMITY: * Brachial artery: Pressure - 205 mmHg. * High thigh: Pressure - 220 mmHg: Ratio - NC: PVR waveform - Pulsatile * Low thigh: Pressure - 220 mmHg: Ratio - NC PVR waveform: Reduced * Calf: Pressure - 95 mmHg: Ratio - 0.44 PVR waveform: Reduced * Posterior tibial Artery: Pressure - 44 mmHg: Ratio - 0.20 PVR waveform: Reduced * Dorsalis pedis Artery: Pressure - 76 mmHg: Ratio - 0.35 PVR waveform: Reduced * Great toe: Pressure - mmHg: Ratio - PVR waveform: Ankle brachial index (CUCO): 0.35 OTHER FINDINGS: Right: Left: IMPRESSION: Right: There was no evidence of hemodynamically significant arterial insufficiency in the right lower extremity. Left: This exam reveals severely decreased perfusion of the left lower extremity, noted at the superficial femoral, popliteal, and tibial artery levels.
--- NOTE | 2016-10-22 14:17 | VASCLAB ---
PROCEDURE: HISTORY: pvd COMPARISON: None available. TECHNIQUE: Grayscale and duplex Doppler evaluation of the bilateral common femoral, femoral, profunda femoral, popliteal, posterior tibial, anterior tibial and dorsalis pedis arteries was performed. Report prepared by ANGELA Barkley, RVT FINDINGS: RIGHT LOWER EXTREMITY: * Common Femoral Artery: Peak Systolic Velocity - 125: Doppler Waveform: Biphasic: Plaque description - Calcific * Profunda Femoral Artery: Peak Systolic Velocity - 58: Doppler Waveform: Biphasic.: Plaque description - Calcific * Femoral Artery o Proximal Segment: Peak Systolic Velocity - 96: Doppler Waveform: Biphasic: Plaque description - Calcific o Middle Segment: Peak Systolic Velocity - 137: Doppler Waveform: Biphasic: Plaque description - Calcific o Distal Segment: Peak Systolic Velocity - 92: Doppler Waveform: Biphasic: Plaque description - Calcific * Popliteal Artery o Proximal Segment: Peak Systolic Velocity - 147: Doppler Waveform: Biphasic: Plaque description - Calcific o Middle Segment: Peak Systolic Velocity - 340: Doppler Waveform: Biphasic: Plaque description - Calcific o Distal Segment: Peak Systolic Velocity - 129: Doppler Waveform: Biphasic: Plaque description - Calcific * Posterior Tibial Artery: Peak Systolic Velocity - 0: Doppler Waveform: Absent: Plaque description - Calcific * Anterior Tibial Artery: Peak Systolic Velocity - 352: Doppler Waveform: Biphasic: Plaque description - Calcific * Dorsalis Pedis Artery: Peak Systolic Velocity - 122: Doppler Waveform: Biphasic: Plaque description - Calcific LEFT LOWER EXTREMITY: * Common Femoral Artery: Peak Systolic Velocity - 148: Doppler Waveform: Biphasic: Plaque description - Calcific * Profunda Femoral Artery: Peak Systolic Velocity - 107: Doppler Waveform: Biphasic: Plaque description - Calcific * Femoral Artery o Proximal Segment: Peak Systolic Velocity - 99: Doppler Waveform: Biphasic: Plaque description - Calcific o Middle Segment: Peak Systolic Velocity - 171: Doppler Waveform: Biphasic: Plaque description - Calcific o Distal Segment: Peak Systolic Velocity - 473: Doppler Waveform: Biphasic: Plaque description - Calcific * Popliteal Artery o Proximal Segment: Peak Systolic Velocity - 273: Doppler Waveform: Biphasic: Plaque description - Calcific o Middle Segment: Peak Systolic Velocity - 624: Doppler Waveform: Biphasic: Plaque description - Calcific o Distal Segment: Peak Systolic Velocity - 64: Doppler Waveform: Biphasic: Plaque description - Calcific * Posterior Tibial Artery: Peak Systolic Velocity - 0: Doppler Waveform: Absent: Plaque description - Calcific * Anterior Tibial Artery: Peak Systolic Velocity - 0: Doppler Waveform: Absent: Plaque description - Calcific * Dorsalis Pedis Artery: Peak Systolic Velocity - 30: Doppler Waveform: Biphasic: Plaque description - Calcific OTHER FINDINGS: None. IMPRESSION: RIGHT: Possible occlusion of the right posterior tibial artery. 50-75% stenosis of the right mid popliteal artery. LEFT: Possible occlusion of the left proximal and distal posterior and proximal anterior tibial arteries. Greater than 75% stenosis of the left distal superficial femoral and mid popliteal arteries. 50-75% stenosis of the left proximal popliteal artery. Recommend angiogram with endovascular repair.
[2016-10-22] MEDS ORDERED: Acetaminophen-Codeine 300/30 mg Tab PO PRN (15:00)
--- NOTE | 2016-10-22 16:48 | CP.PCM.CON ---
History of Present Illness - History of Present Illness History of Present Illness: NEEDS VASCULAR EVAL FOR ISCHEMIC ULCER LEFT HEEL, R/O OM CONSIDER MRI LEFT CALCANEUS AGREE WITH IV RX 71 yo female presents to the ED at the instruction of Dr. Melendez for care for an ulcer on her left foot. Pt states that ulcer began as a cut on her foot 3 months ago and it became progressively worse for the past month. She reports it hurts at times, especially when she walks on it or tried to place any pressure. She states it only became as bad as it is now for the past month. As per pt, she was recently [place] [facility] and was sent home with topical collagenase santyl. Patient was seen by Dr. Melendez in his office on Thursday and told to come in today 10/21 for wound debridement. PMD: Dr. Gonzalez ALL: NKDA PMH: CKD stage III, CHF?, HTN, CAD, DM2, anxiety, anemia of chronic disease, chronic low back pain Surgery: appendectomy Medications: Hydralazine 50mg, Losartan potassium 100mg, HCTZ 25mg, Allopurinol 100mg, Torsemide 100mg, Atorvastatin 20mg, Lantus, Iron 65mg, Vit D3 5000IU, Bactrim DS, Esomeprazole 40mg Family history: not contributory Social History: Lives with in [place] , denies any smoking , ETOH or drug abuse ROS: Pt denies fever, chills, headache, dizziness, vision changes, chest pain, shortness of breath, cough, nausea, vomiting, or bowel/bladder pain. Review of Systems - Constitutional Constitutional: As Per HPI, Fever, Malaise - EENT Eyes: absent: As Per HPI, Blind Spots, Blurred Vision, Change in Vision, Decreased Night Vision, Diplopia, Discharge, Dry Eye, Exophthalmos, Floaters, Irritation, Itchy Eyes, Loss of Peripheral Vision, Pain, Photophobia, Requires Corrective Lenses, Sees Flashes, Spots in Vision, Tunnel Vision, Other Visual Disturbances, Loss of Vision, Other Ears: absent: As Per HPI, Decreased Hearing, Ear Discharge, Ear Pain, Tinnitus, Abnormal Hearing, Disequilibrium, Dizziness, Other Nose/Mouth/Throat: absent: As Per HPI, Epistaxis, Nasal Congestion, Nasal Discharge, Nasal Obstruction, Nasal Trauma, Nose Pain, Post Nasal Drip, Sinus Pain, Sinus Pressure, Bleeding Gums, Change in Voice, Dental Pain, Dry Mouth, Dysphagia, Halitosis, Hoarsness, Lip Swelling, Mouth Lesions, Mouth Pain, Odynophagia, Sore Throat, Throat Swelling, Tongue Swelling, Facial Pain, Neck Pain, Neck Mass, Other - Breasts Breasts: absent: As Per HPI, Change in Shape, Mass, Pain, Nipple Discharge, Nipple Inversion, Skin Changes, Swelling, Other - Cardiovascular Cardiovascular: absent: As Per HPI, Acrocyanosis, Chest Pain, Chest Pain at Rest , Chest Pain with Activity, Claudication, Diaphoresis, Dyspnea, Dyspnea on Exertion, Edema, Irregular Heart Rhythm, Pain Radiating to Arm/Neck/Jaw, Leg Edema, Leg Ulcers, Lightheadedness, Orthopnea, Palpitations, Paroxysmal Nocturnal Dyspnea, Pedal Edema, Radiating Pain, Rapid Heart Rate, Slow Heart Rate, Syncope, Other - Respiratory Respiratory: absent: As Per HPI, Cough, Dyspnea, Hemoptysis, Dyspnea on Exertion , Wheezing, Snoring, Stridor, Pain on Inspiration, Chest Congestion, Excessive Mucous Production, Change in Mucous Color, Pain with Coughing, Other - Gastrointestinal Gastrointestinal: absent: As Per HPI, Abdominal Pain, Belching, Bloating, Change in Bowel Habits, Change in Stool Character, Coffee Ground Emesis, Constipation, Cramping, Diarrhea, Dyspepsia, Dysphagia, Early Satiety, Excessive Flatus, Fecal Incontinence, Heartburn, Hematemesis, Hematochezia, Loose Stools, Melena, Nausea, Odynophagia, Temesmus, Vomiting, Other - Genitourinary Genitourinary: absent: As Per HPI, Change in Urinary Stream, Difficulty Urinating, Dysuria, Flank Pain, Hematuria, Pyuria, Nocturia, Urinary Incontinence, Urinary Frequency, Urinary Hesitance, Urinary Urgency, Voiding Freq/Small Amts, Freq UTI, Hx Renal/Bladder Calculi, Hx /Renal Surgery, Bladder Distension, Other - Reproductive: Female Reproductive:Female: absent: As Per HPI, Amenorrhea, Amenorrhea/ Control, Currently Menstual, Cycle <21 Days, Cycle >35 Days, Cycle Variable, Menses 1-7 Days, Menses >/= 8 Days, Menses Variable, Cycle > 4 Weeks Between, No Menses for 6 Months, Heavy Menses, Light Menses, Normal Menses, Spotting Between Cycles , S/P Hysterectomy, Menopausal, Post Menopausal, Premenarche, Abnormal Vaginal Bleeding, Dysmenorrhea, Dyspareunia, Genital Lesions, Genital Pruritis, Pelvic Pain, Prolapse Symptoms, Sexual Dysfunction, Vaginal Discharge, Vaginal Dryness , Vaginal Odor, Vaginal Pruritis, Other - Menstruation Menstruation: absent: As Per HPI, Amenorrhea, Amenorrhea/ Control, Currently Menstual, Cycle <21 Days, Cycle >35 Days, Cycle Variable, Menses 1-7 Days, Menses >/= 8 Days, Menses Variable, Cycle > 4 Weeks Between, No Menses for 6 Months, Heavy Menses, Light Menses, Normal Menses, Spotting Between Cycles , S/P Hysterectomy, Menopausal, Post Menopausal, Premenarche, Abnormal Vaginal Bleeding, Dysmenorrhea, Other - Musculoskeletal Musculoskeletal: As Per HPI - Integumentary Integumentary: As Per HPI, Skin Pain, Wounds - Neurological Neurological: absent: As Per HPI, Abnormal Gait, Abnormal Hearing, Abnormal Movements, Abnormal Speech, Behavioral Changes, Burning Sensations, Confusion, Convulsions, Disequilibrium, Dizziness, Numbness, Focal Weakness, Frequent Falls , Headaches, Lack of Coordination, Loss of Vision, Memory Loss, Paresthesias, Radicular Pain, Restless Legs, Sensory Deficit, Syncope, Tingling, Tremor, Vertigo, Weakness, Other Visual Disturbances, Other - Psychiatric Psychiatric: absent: As Per HPI, Abnormal Sleep Pattern, Anhedonia, Anxiety, Auditory Hallucinations, Behavioral Changes, Change in Appetite, Change in Libido, Confusion, Depression, Difficulty Concentrating, Hallucinations, Homicidal Ideation, Hopelessness, Irritability, Memory Loss, Mood Swings, Panic Attacks, Paranoia, Suicidal Ideation, Visual Hallucinations, Tactile Hallucinations, Other - Endocrine Endocrine: absent: As Per HPI, Change in Body Appearance, Change in Libido, Cold Intolorance, Deepening of Voice, Excessive Sweating, Fatigue, Flushing, Heat Intolorance, Increase in Ring/Shoe/Hat Size, Palpitations, Polydipsia, Polyphagia, Polyuria, Other - Hematologic/Lymphatic Hematologic: absent: As Per HPI, Easy Bleeding, Easy Bruising, Lymphadenopathy, Other Past Patient History - Infectious Disease Hx of Infectious Diseases: None - Tetanus Immunizations Tetanus Immunization: Unknown - Past Medical History & Family History Past Medical History?: Yes - Past Social History Smoking Status: Never Smoked - CARDIAC Hx Congestive Heart Failure: Yes Hx Hypercholesterolemia: Yes Hx Hypertension: Yes - PULMONARY Hx Respiratory Disorders: No - NEUROLOGICAL Hx Neurological Disorder: No - HEENT Hx Cataracts: Yes - RENAL Hx Chronic Kidney Disease: Yes - ENDOCRINE/METABOLIC Hx Diabetes Mellitus Type 2: Yes - HEMATOLOGICAL/ONCOLOGICAL Hx Anemia: Yes Hx Human Immunodeficiency Virus (HIV): No - INTEGUMENTARY Hx Dermatological Problems: No (VERY PALE) - MUSCULOSKELETAL/RHEUMATOLOGICAL Hx Degenerative Joint Disease: Yes Hx Falls: No - GENITOURINARY/GYNECOLOGICAL Hx Urinary Tract Infection: Yes - PSYCHIATRIC Hx Anxiety: Yes Hx Depression: Yes (BROTHER LAST YEAR) Hx Substance Use: No - SURGICAL HISTORY Hx Appendectomy: Yes - ANESTHESIA Hx Anesthesia: Yes Hx Anesthesia Reactions: No Hx Malignant Hyperthermia: No Meds Allergies/Adverse Reactions: Allergies Allergy/AdvReac Type Severity Reaction Status Date / Time No Known Allergies Allergy Verified 10/21/16 09:57 - Medications Medications: Current Medications Ascorbic Acid (Vitamin C 500 Mg Tab) 500 mg PO DAILY [facility] Last Admin: 10/22/16 12:07 Dose: 500 mg Ergocalciferol (Drisdol 50,000 Intl Units Cap) 1 cap PO Q7D [facility] Last Admin: 10/21/16 21:56 Dose: 1 cap Furosemide (Lasix) 40 mg IVP BID [facility] Stop: 10/23/16 00:00 Last Admin: 10/22/16 10:51 Dose: 40 mg Heparin Sodium (Porcine) (Heparin) 5,000 units SC Q12 [facility] Last Admin: 10/22/16 10:50 Dose: 5,000 units Hydralazine HCl (Apresoline) 50 mg PO BID [facility] Last Admin: 10/22/16 10:49 Dose: 50 mg Hydrochlorothiazide (Hydrodiuril) 25 mg PO DAILY [facility] Last Admin: 10/22/16 10:49 Dose: 25 mg Piperacillin Sod/Tazobactam (Sod 2.25 gm/ Sodium Chloride) 100 mls @ 200 mls/ hr IVPB Q8H [facility] Last Admin: 10/22/16 12:45 Dose: 200 mls/hr Vancomycin HCl 500 mg/ Sodium (Chloride) 100 mls @ 100 mls/hr IVPB DAILY [facility] Last Admin: 10/22/16 12:05 Dose: 100 mls/hr Insulin Aspart (Novolog) 0 unit SC ACHS [facility] PRN Reason: Protocol Last Admin: 10/22/16 16:37 Dose: 6 unit Ketoconazole (Nizoral) 2 gm TOP BID [facility] Losartan Potassium (Cozaar) 100 mg PO DAILY [facility] Last Admin: 10/22/16 10:49 Dose: 100 mg Ondansetron HCl (Zofran Inj) 4 mg IVP Q6H PRN PRN Reason: Nausea/Vomiting Pantoprazole Sodium (Protonix Ec Tab) 40 mg PO DAILY [facility] Last Admin: 10/22/16 10:49 Dose: 40 mg Rosuvastatin Calcium (Crestor) 10 mg PO HS [facility] Last Admin: 10/21/16 21:06 Dose: 10 mg Sevelamer Carbonate (Renvela) 0.8 gm PO TIDCC [facility] Last Admin: 10/22/16 12:07 Dose: 0.8 gm Torsemide (Demadex) 100 mg PO DAILY [facility] Last Admin: 10/22/16 11:55 Dose: 100 mg Tramadol HCl (Ultram) 25 mg PO Q6H PRN PRN Reason: PAIN 1-10 Vitamin B Complex/Vit C/Folic Acid (Nephro-Alonzo) 1 tab PO DAILY [facility] Last Admin: 10/22/16 10:51 Dose: 1 tab Physical Exam - Constitutional Appears: Non-toxic, Chronically Ill - Head Exam Head Exam: NORMOCEPHALIC - Eye Exam Eye Exam: PERRL. absent: Scleral icterus - ENT Exam ENT Exam: Mucous Membranes Dry - Neck Exam Neck exam: Negative for: Lymphadenopathy, Thyromegaly - Respiratory Exam Respiratory Exam: Decreased Breath Sounds, Rhonchi - Cardiovascular Exam Cardiovascular Exam: REGULAR RHYTHM, +S1, +S2 - GI/Abdominal Exam GI & Abdominal Exam: Diminished Bowel Sounds, Soft. absent: Tenderness - Rectal Exam Rectal Exam: Deferred - Exam Exam: NORMAL INSPECTION - Extremities Exam Extremities exam: Positive for: pedal edema, pedal pulses present. Negative for : calf tenderness, tenderness Additional comments: large ulcer left heel - Back Exam Back exam: absent: CVA tenderness (L), CVA tenderness (R) - Neurological Exam Neurological exam: Alert, CN II-XII Intact, Oriented x3, Reflexes Normal - Psychiatric Exam Psychiatric exam: Normal Mood - Skin Skin Exam: Dry Results - Vital Signs Recent Vital Signs: Last Vital Signs Temp 98.0 F 10/22/16 16:00 Pulse 96 H 10/22/16 16:00 Resp 20 10/22/16 16:00 BP 114/57 L 10/22/16 16:00 Pulse Ox 97 10/22/16 16:00 - Labs Result Diagrams: 10/24/16 07:58 10/24/16 07:58 Labs: Laboratory Results - last 24 hr 10/21/16 10/21/16 10/22/16 16:32 21:31 07:03 WBC RBC Hgb Hct MCV MCH MCHC RDW Plt Count MPV Neut % (Auto) Lymph % (Auto) [place] % (Auto) Eos % (Auto) Baso % (Auto) Neut # Lymph # [place] # Eos # Baso # APTT Sodium Potassium Chloride Carbon Dioxide Anion Gap BUN Creatinine Est GFR ( Amer) Est GFR (Non-Af Amer) POC Glucose (mg/dL) 78 182 H 196 H Random Glucose Hemoglobin A1c Calcium Phosphorus Magnesium Total Bilirubin AST ALT Alkaline Phosphatase Total Protein Albumin Globulin Albumin/Globulin Ratio Triglycerides Cholesterol LDL Cholesterol Direct HDL Cholesterol 10/22/16 10/22/16 10/22/16 07:18 07:18 07:18 WBC 8.2 RBC 3.69 L Hgb 10.7 L Hct 31.5 L MCV 85.4 MCH 29.0 MCHC 34.0 RDW 12.7 Plt Count 335 MPV 10.2 Neut % (Auto) 72.3 Lymph % (Auto) 11.7 L [place] % (Auto) 10.1 H Eos % (Auto) 4.7 H Baso % (Auto) 1.2 Neut # 5.9 Lymph # 1.0 [place] # 0.8 Eos # 0.4 Baso # 0.1 APTT Sodium 136 Potassium 3.9 Chloride 98 Carbon Dioxide 26 Anion Gap 16 BUN 79 H Creatinine 2.7 H Est GFR ( Amer) 21 Est GFR (Non-Af Amer) 17 POC Glucose (mg/dL) Random Glucose 192 H Hemoglobin A1c 12.2 H Calcium 9.1 Phosphorus 5.0 H Magnesium 2.1 Total Bilirubin 0.5 AST 22 ALT 13 Alkaline Phosphatase 90 Total Protein 6.8 Albumin 3.4 L D Globulin 3.3 Albumin/Globulin Ratio 1.0 Triglycerides 248 H Cholesterol 217 H LDL Cholesterol Direct 113 HDL Cholesterol 39 10/22/16 10/22/16 10/22/16 07:18 11:03 16:13 WBC RBC Hgb Hct MCV MCH MCHC RDW Plt Count MPV Neut % (Auto) Lymph % (Auto) [place] % (Auto) Eos % (Auto) Baso % (Auto) Neut # Lymph # [place] # Eos # Baso # APTT 32 D Sodium Potassium Chloride Carbon Dioxide Anion Gap BUN Creatinine Est GFR ( Amer) Est GFR (Non-Af Amer) POC Glucose (mg/dL) 366 H 451 H* Random Glucose Hemoglobin A1c Calcium Phosphorus Magnesium Total Bilirubin AST ALT Alkaline Phosphatase Total Protein Albumin Globulin Albumin/Globulin Ratio Triglycerides Cholesterol LDL Cholesterol Direct HDL Cholesterol Assessment & Plan (1) Cellulitis of foot Status: Acute (2) Foot ulcer Status: Acute (3) Peripheral vascular disease Status: Acute (4) NAVEEN (acute kidney injury) Status: Acute Priority: Medium (5) Accelerated hypertension Status: Acute Priority: High (6) Acute exacerbation of CHF (congestive heart failure) Status: Acute (7) CKD (chronic kidney disease) stage 3, GFR 30-59 ml/min Status: Chronic (8) DM2 (diabetes mellitus, type 2) Status: Chronic Priority: Medium (9) Dyslipidemia Status: Chronic (10) IDDM (insulin dependent diabetes mellitus) Status: Chronic Priority: Medium - Assessment and Plan (Free Text) Assessment: r/o om, needs debridement check cultures poor prognosis may need BKA consider MRI, vascular consult
[2016-10-22] MEDS: Tramadol 25 mg PO PRN (22:46)
--- NOTE | 2016-10-22 23:40 | CP.PCM.PN ---
Subjective - Date & Time of Evaluation Date of Evaluation: 10/22/16 Time of Evaluation: 13:00 - Subjective Subjective: SEEN ON RENAL F/U C/O L FOOT PAIN C/O NAUSEA AND POOR APPETITE eGFR DOWN 25 -- > 17 ML/M H/H STABLE NO INDICATION FOR EPO USE R INFECTED DIABETIC FOOT .. ON IVAB Objective - Vital Signs/Intake and Output Vital Signs (last 24 hours): Temp Pulse Resp BP Pulse Ox 98.0 F 96 H 20 114/57 L 99 10/22/16 16:00 10/22/16 16:00 10/22/16 16:00 10/22/16 17:43 10/22/16 17:46 - Medications Medications: Current Medications Ascorbic Acid (Vitamin C 500 Mg Tab) 500 mg PO DAILY [facility] Last Admin: 10/22/16 12:07 Dose: 500 mg Ergocalciferol (Drisdol 50,000 Intl Units Cap) 1 cap PO Q7D [facility] Last Admin: 10/21/16 21:56 Dose: 1 cap Furosemide (Lasix) 40 mg IVP BID [facility] Stop: 10/23/16 00:00 Last Admin: 10/22/16 17:43 Dose: 40 mg Heparin Sodium (Porcine) (Heparin) 5,000 units SC Q12 [facility] Last Admin: 10/22/16 21:11 Dose: 5,000 units Hydralazine HCl (Apresoline) 50 mg PO BID [facility] Last Admin: 10/22/16 17:43 Dose: 50 mg Hydrochlorothiazide (Hydrodiuril) 25 mg PO DAILY [facility] Last Admin: 10/22/16 10:49 Dose: 25 mg Piperacillin Sod/Tazobactam (Sod 2.25 gm/ Sodium Chloride) 100 mls @ 200 mls/ hr IVPB Q8H [facility] Last Admin: 10/22/16 21:15 Dose: 200 mls/hr Vancomycin HCl 500 mg/ Sodium (Chloride) 100 mls @ 100 mls/hr IVPB DAILY [facility] Last Admin: 10/22/16 12:05 Dose: 100 mls/hr Insulin Aspart (Novolog) 0 unit SC ACHS [facility] PRN Reason: Protocol Last Admin: 10/22/16 21:53 Dose: 2 unit Ketoconazole (Nizoral) 2 gm TOP BID [facility] Last Admin: 10/22/16 18:00 Dose: 2 gm Losartan Potassium (Cozaar) 100 mg PO DAILY [facility] Last Admin: 10/22/16 10:49 Dose: 100 mg Ondansetron HCl (Zofran Inj) 4 mg IVP Q6H PRN PRN Reason: Nausea/Vomiting Last Admin: 10/22/16 18:02 Dose: 4 mg Pantoprazole Sodium (Protonix Ec Tab) 40 mg PO DAILY [facility] Last Admin: 10/22/16 10:49 Dose: 40 mg Rosuvastatin Calcium (Crestor) 10 mg PO HS [facility] Last Admin: 10/22/16 21:11 Dose: 10 mg Sevelamer Carbonate (Renvela) 0.8 gm PO TIDCC [facility] Last Admin: 10/22/16 17:56 Dose: 0.8 gm Torsemide (Demadex) 100 mg PO DAILY [facility] Last Admin: 10/22/16 11:55 Dose: 100 mg Tramadol HCl (Ultram) 25 mg PO Q6H PRN PRN Reason: PAIN 1-10 Last Admin: 10/22/16 22:46 Dose: 25 mg Vitamin B Complex/Vit C/Folic Acid (Nephro-Alonzo) 1 tab PO DAILY [facility] Last Admin: 10/22/16 10:51 Dose: 1 tab - Labs Labs: 10/22/16 07:18 10/22/16 07:18 PT 10.6 SECONDS (9.7-12.2) 10/21/16 12:18 INR 1.0 10/21/16 12:18 APTT 32 SECONDS (21-34) D 10/22/16 07:18 Assessment and Plan - Assessment and Plan (Free Text) Assessment: A ON CKD .. RENAL FUNCTION IS WORSE .. EASE DOWN ON DUIRETICS ANEMIA OF CKD .. HBG > 10 .. NO NEED FOR EPO TRX L INFECTED DIABETIC FOOT .. ON IVAB MULTIPLE CO MORBIDITIES P : D/C LASIX HOLD LOSATRAN FOR NOW WATCH RENAL FUNCTION VERY CLOSELY
[2016-10-23] MEDS: Piperacillin/Tazobact 2.25 GM in Sodium Chloride 100 ML IVPB SCH ×4 (05:46→22:01)
--- NOTE | 2016-10-23 07:07 | CP.PCM.PN ---
<Kacey Barnes - Last Filed: 10/23/16 21:42> Subjective - Date & Time of Evaluation Date of Evaluation: 10/23/16 Time of Evaluation: 07:15 - Subjective Subjective: Medicine note for Dr. Myrick Patient seen and examined at bedside. Patient was tearful during exam and reported nausea and vomiting although patient had no vomiting as per nursing. She was not eating as she does not like the food. Patient was kept NPO overnight for angio today with Dr. Roman, however, on review of patient's renal function worsening, angiogram was cancelled. As per nephrology patient's diuretics were to be held and patient was to be started on actylcysteine PO. Patient complained of pain in her legs and her foot. She is anxious and cries whenever someone new comes into the room and is unable to answer any questions without crying. She states she is exhausted and stressed from being in the hospital. She reports that the pain medications help her foot pain, but the pills make her nauseous. Pt denies fever, chills, headache, dizziness, chest pain, palpitations, shortness of breath, bowel/bladder pain. Left foot dressings clean/dry/intact. Objective - Vital Signs/Intake and Output Vital Signs (last 24 hours): Temp Pulse Resp BP Pulse Ox 98.3 F 78 20 146/69 96 10/22/16 23:44 10/22/16 23:44 10/22/16 23:44 10/22/16 23:44 10/22/16 23:44 - Medications Medications: Current Medications Ascorbic Acid (Vitamin C 500 Mg Tab) 500 mg PO DAILY [facility] Last Admin: 10/22/16 12:07 Dose: 500 mg Ergocalciferol (Drisdol 50,000 Intl Units Cap) 1 cap PO Q7D [facility] Last Admin: 10/21/16 21:56 Dose: 1 cap Heparin Sodium (Porcine) (Heparin) 5,000 units SC Q12 [facility] Last Admin: 10/22/16 21:11 Dose: 5,000 units Hydralazine HCl (Apresoline) 50 mg PO BID [facility] Last Admin: 10/22/16 17:43 Dose: 50 mg Hydrochlorothiazide (Hydrodiuril) 25 mg PO DAILY [facility] Last Admin: 10/22/16 10:49 Dose: 25 mg Piperacillin Sod/Tazobactam (Sod 2.25 gm/ Sodium Chloride) 100 mls @ 200 mls/ hr IVPB Q8H [facility] Last Admin: 10/23/16 05:46 Dose: 200 mls/hr Vancomycin HCl 500 mg/ Sodium (Chloride) 100 mls @ 100 mls/hr IVPB DAILY [facility] Last Admin: 10/22/16 12:05 Dose: 100 mls/hr Sodium Chloride (Sodium Chloride 0.9%) 1,000 mls @ 70 mls/hr IV .[id number] [facility] Insulin Aspart (Novolog) 0 unit SC ACHS [facility] PRN Reason: Protocol Last Admin: 10/22/16 21:53 Dose: 2 unit Ketoconazole (Nizoral) 2 gm TOP BID [facility] Last Admin: 10/22/16 18:00 Dose: 2 gm Ondansetron HCl (Zofran Inj) 4 mg IVP Q6H PRN PRN Reason: Nausea/Vomiting Last Admin: 10/23/16 05:47 Dose: 4 mg Pantoprazole Sodium (Protonix Ec Tab) 40 mg PO DAILY [facility] Last Admin: 10/22/16 10:49 Dose: 40 mg Rosuvastatin Calcium (Crestor) 10 mg PO HS [facility] Last Admin: 10/22/16 21:11 Dose: 10 mg Sevelamer Carbonate (Renvela) 0.8 gm PO TIDCC [facility] Last Admin: 10/22/16 17:56 Dose: 0.8 gm Torsemide (Demadex) 100 mg PO DAILY [facility] Last Admin: 10/22/16 11:55 Dose: 100 mg Tramadol HCl (Ultram) 25 mg PO Q6H PRN PRN Reason: PAIN 1-10 Last Admin: 10/22/16 22:46 Dose: 25 mg Vitamin B Complex/Vit C/Folic Acid (Nephro-Alonzo) 1 tab PO DAILY [facility] Last Admin: 10/22/16 10:51 Dose: 1 tab - Labs Labs: 10/22/16 07:18 10/22/16 07:18 PT 10.6 SECONDS (9.7-12.2) 10/21/16 12:18 INR 1.0 10/21/16 12:18 APTT 32 SECONDS (21-34) D 10/22/16 07:18 - Constitutional Appears: Non-toxic - Head Exam Head Exam: ATRAUMATIC, NORMAL INSPECTION, NORMOCEPHALIC - Eye Exam Eye Exam: Normal appearance. absent: Conjunctival injection, Scleral icterus - ENT Exam ENT Exam: Mucous Membranes Moist - Neck Exam Neck Exam: Normal Inspection - Respiratory Exam Respiratory Exam: Clear to Ausculation Bilateral, NORMAL BREATHING PATTERN. absent: Accessory Muscle Use, Rales, Rhonchi, Wheezes - Cardiovascular Exam Cardiovascular Exam: REGULAR RHYTHM, RRR, +S1, +S2 - GI/Abdominal Exam GI & Abdominal Exam: Soft, Normal Bowel Sounds. absent: Firm, Guarding, Rigid, Tenderness - Extremities Exam Extremities Exam: Tenderness Additional comments: Decreased pulses worse on L L foot wrapping clean/dry/intact - Neurological Exam Neurological Exam: Alert, Awake, Oriented x3 - Psychiatric Exam Psychiatric exam: Anxious, Depressed - Skin Skin Exam: Dry, Intact, Normal Color, Warm Assessment and Plan - Assessment and Plan (Free Text) Assessment: 71 yo female with PMHx of CKD stage III, CHF?, HTN, CAD, DM2, anxiety, anemia of chronic disease, chronic low back pain presented with ulcer on her left foot Plan: Left lateral foot ulcer -likely Velazco stage 2 diabetic foot ulcer without infection/ischemia vs ulcer secondary to PAD -Left heel x-ray: limited vsiualization of anterior calcaneus. No acute displaced fracture. -Arterial PVR/SEG: Right negative; Left secerely decreased perfusion of the LLE noted at superficial, popliteal, and tibial A levels -LE Arterial scan: R possible occlusion of R posterior tibial A [50-75% stenosis of right mid popliteal A]; L possible occlusion of L proximal and sital posterior and proximal anterior tibial arteries; greater than 75% stenosis of the left distal superficial femoral and mid popliteal arteries; 50- 75% stenosis of L proximal poplitearl artery; recommend angiogram with endovascular repair -blood culture prelim gram negative kendy -SCDs c/i -Zosyn 2.25gm IVPB Q8H renally dosed -Vancomycin 500mg IVPB Qdaily renally dosed -Tramadol 25mg po q6 PRN pain -Tylenol with codeine 1 po q6 PRN pain -Venous dopplers negative b/l -Physical therapy -Wound care -Clotrimazole top bid -ID: Dr Wellington consulted -IR : Dr Roman consulted -Surgery: Dr Melendez consulted Peripheral Arterial Disease -Angiogram pending renal function improvement vs dialysis -Arterial PVR/SEG: Right negative; Left secerely decreased perfusion of the LLE noted at superficial, popliteal, and tibial A levels -LE Arterial scan: R possible occlusion of R posterior tibial A [50-75% stenosis of right mid popliteal A]; L possible occlusion of L proximal and sital posterior and proximal anterior tibial arteries; greater than 75% stenosis of the left distal superficial femoral and mid popliteal arteries; 50- 75% stenosis of L proximal poplitearl artery; recommend angiogram with endovascular repair -Pletal 50mg po bid -IR: Dr. Roman consulted CKD Stage IV -worsening renal function -Cr 3.4 this AM -as per nephrology diuretics on hold -Acetylcysteine 6ml po bid -Ascorbic acid 500mg po daily -Renvela 0.8gm po TIDCC -Drisdol 50,000 1 cap po q7days -Nephrovite 1 tab po daily -as per Primary patient is on 1/2NS @ 80cc/hr -Nephrology: Dr Ambrose consulted HTN -Hydralazine 50mg po bid -HCTZ 25mg po daily -Losartan 100mg po daily -Torsemide 100mg po daily Glaucoma -Alphagan 0.2% 0ml OD TID -Xalatan OD HS CAD -Hydralazine 50mg po bid -HCTZ 25mg po daily -Losartan 100mg po daily -Crestor 10mg po hs -Lipid panel TG 248 Cholesterol 217 LDL 113 HDL 39 DM2 -RISS -Accucheck ACHS -Lantus 15U SC HS -HgbA1c 12.2 Anxiety and depression -Xanax 0.25mg po q8 prn -Lexapro 10mg po daily Anemia of chronic disease -H&H on admission is 10.2 and 30.9 -Monitor for acute changes -Dr. Ambrose nephrology consulted Chronic LBP -no acute complaints on admission -Monitor CHF -As per medical records patient has hx of CHF -Echo in 2016 in medical records is unremarkable with normal EF -f/u echo PPX -Heparin 5000U SC Q12 -Protonix 40mg po daily -Zofran 4mg IVP q6 ELINA -Heart healthy moderate consistent carb diet -SCDs c/i -PT Plan discussed with Dr. Ramez Barnes PGY1 <Benson Myrick Jr. - Last Filed: 10/25/16 13:31> Objective - Vital Signs/Intake and Output Vital Signs (last 24 hours): Temp Pulse Resp BP Pulse Ox 98 F 93 H 20 160/63 H 98 10/25/16 08:00 10/25/16 08:00 10/25/16 08:00 10/25/16 08:00 10/25/16 08:00 Intake and Output: 10/25/16 10/25/16 06:59 18:59 Intake Total 820 Balance 820 - Medications Medications: Current Medications Acetylcysteine (Acetylcysteine 20%) 6 ml PO BID [facility] Last Admin: 10/25/16 11:32 Dose: 6 ml Alprazolam (Xanax) 0.25 mg PO Q8H PRN PRN Reason: Anxiety Stop: 10/30/16 07:20 Last Admin: 10/24/16 00:11 Dose: 0.25 mg Ascorbic Acid (Vitamin C 500 Mg Tab) 500 mg PO DAILY [facility] Last Admin: 10/25/16 09:59 Dose: 500 mg Brimonidine Tartrate (Alphagan 0.2% Opht) 0 ml OD TID [facility] Last Admin: 10/25/16 09:59 Dose: 1 applic Cilostazol (Pletal) 50 mg PO BID [facility] Last Admin: 10/25/16 10:10 Dose: 50 mg Clotrimazole (Lotrimin 1%) 0 gm TOP BID [facility] Last Admin: 10/25/16 10:10 Dose: 1 applic Ergocalciferol (Drisdol 50,000 Intl Units Cap) 1 cap PO Q7D [facility] Last Admin: 10/21/16 21:56 Dose: 1 cap Escitalopram Oxalate (Lexapro) 10 mg PO DAILY [facility] Last Admin: 10/25/16 09:58 Dose: 10 mg Heparin Sodium (Porcine) (Heparin) 5,000 units SC Q12 [facility] Last Admin: 10/25/16 09:59 Dose: 5,000 units Hydralazine HCl (Apresoline) 50 mg PO BID [facility] Last Admin: 10/25/16 09:59 Dose: 50 mg Piperacillin Sod/Tazobactam (Sod 2.25 gm/ Sodium Chloride) 100 mls @ 200 mls/ hr IVPB Q8H [facility] Last Admin: 10/25/16 05:00 Dose: 200 mls/hr Vancomycin HCl 500 mg/ Sodium (Chloride) 100 mls @ 100 mls/hr IVPB DAILY [facility] Last Admin: 10/25/16 12:11 Dose: 100 mls/hr Sodium Chloride (Sodium Chloride 0.45%) 1,000 mls @ 80 mls/hr IV .[id number] [facility] Last Admin: 10/25/16 12:22 Dose: Not Given Insulin Aspart (Novolog) 0 unit SC ACHS [facility] PRN Reason: Protocol Last Admin: 10/25/16 12:40 Dose: 12 unit Insulin Glargine (Lantus) 15 unit SC HS [facility] Last Admin: 10/24/16 21:20 Dose: 15 u Latanoprost (Xalatan Opht) 0 ml OD HS [facility] Last Admin: 10/24/16 21:15 Dose: 2.5 ml Ondansetron HCl (Zofran Inj) 4 mg IVP Q6H [facility] Last Admin: 10/25/16 12:41 Dose: 4 mg Pantoprazole Sodium (Protonix Ec Tab) 40 mg PO DAILY [facility] Last Admin: 10/25/16 09:58 Dose: 40 mg Rosuvastatin Calcium (Crestor) 10 mg PO HS [facility] Last Admin: 10/24/16 21:23 Dose: 10 mg Sevelamer Carbonate (Renvela) 0.8 gm PO TIDCC [facility] Last Admin: 10/25/16 12:41 Dose: 0.8 gm Tramadol HCl (Ultram) 25 mg PO Q6H PRN PRN Reason: PAIN 1-10 Last Admin: 10/25/16 06:14 Dose: 25 mg Vitamin B Complex/Vit C/Folic Acid (Nephro-Alonzo) 1 tab PO DAILY [facility] Last Admin: 10/25/16 09:58 Dose: 1 tab - Labs Labs: 10/25/16 07:00 10/25/16 07:00 PT 10.9 SECONDS (9.7-12.2) 10/23/16 11:28 INR 1.0 10/23/16 11:28 APTT 30 SECONDS (21-34) 10/23/16 11:28 Attending/Attestation - Attestation I have personally seen and examined this patient.: Yes I have fully participated in the care of the patient.: Yes I have reviewed all pertinent clinical information, including history, physical exam and plan: Yes Notes (Text): 10/25/16 13:31 Agree with resident note and findings
[2016-10-23] MEDS ORDERED: Sodium Chloride 0.9% 1,000 ML IV SCH ×3 (07:15→18:30)
[2016-10-23] MEDS ORDERED: Dextrose 5%/0.9% NS 1,000 ML IV SCH (07:15)
[2016-10-23 08:00] LABS: BASO # 0.1 K/uL (0.0-0.2); EOS # 0.2 K/uL (0.0-0.7); EOS % 1.9 % (0.0-4.0); HEMATOCRIT 31.8 % (34.0-47.0); LYMPH # 1.1 K/uL (1.0-4.3); LYMPH % 9.1 % (20.0-40.0); MEAN CORPUSCULAR HEMOGLOBIN 28.6 pg (27.0-31.0); MEAN CORPUSCULAR HGB CONC 32.5 g/dL (33.0-37.0); MEAN PLATELET VOLUME 10.6 fL (7.2-11.7); MONO # 0.8 K/uL (0.0-0.8); MONO % 6.8 % (0.0-10.0); PLATELET COUNT 317 K/uL (130-400); RED CELL DISTRIBUTION WIDTH 13.1 % (11.5-14.5); WHITE BLOOD COUNT 11.6 K/uL (4.8-10.8)
[2016-10-23 08:02] LABS: MEAN CELL VOLUME 87.9 fL (81.0-99.0)
[2016-10-23 08:23] LABS: POTASSIUM 4.6 mmol/L (3.6-5.2)
[2016-10-23 08:25] LABS: ALB/GLOB RATIO 1.1 (1.0-2.1); BILIRUBIN,TOTAL 0.7 mg/dL (0.2-1.3); TOTAL PROTEIN 6.6 g/dL (6.3-8.3)
[2016-10-23 08:26] LABS: CALCIUM 8.9 mg/dl (8.6-10.4); MAGNESIUM 2.1 mg/dL (1.6-2.3); PHOSPHOROUS 5.2 mg/dL (2.5-4.5)
[2016-10-23 09:08] LABS: EOSINOPHIL 1 % (0-4); NEUTROPHIL 85 % (50-75); TOTAL CELLS COUNTED 100
[2016-10-23] MEDS: Brimonidine 0.2% Opth Sol (5ml) OD SCH ×3 (10:50→17:48)
[2016-10-23] MEDS: Sevelamer Carb 0.8 gm/Packet PO SCH ×3 (10:55→17:00)
[2016-10-23] MEDS: Pantoprazole 40 mg EC Tab PO SCH (10:56)
[2016-10-23] MEDS: (Novolog) Insulin Aspart, Recombinant 100 u/ml 10 ml vial SC SCH ×4 (10:56→22:44)
[2016-10-23] MEDS: Multivitamin Vitamin B Complex (Nephro-Vite) Tab PO SCH (11:20)
[2016-10-23] MEDS: Clotrimazole 1% Cream(30 gm) TOP SCH ×2 (11:36→18:00)
[2016-10-23] MEDS: Acetylcysteine 20% Inhal Soln (4ml) PO SCH ×2 (13:20→20:47)
--- NOTE | 2016-10-23 14:51 | PCM.IRP ---
History of Present Illness - History of Present Illness History of Present Illness: Pt Rosalba case reviewed. Pt with critical limb ischemia and foot ulcer. She requires revascularization. Unfortunately, her renal function has worsened. Case discussed with her dredge pump operator, Dr. Ambrose, and he will try to improve her renal function prior to any endovascular intervention which will require contrast dye. The alternative is CO2 angiogram which we currently can not perform at [facility]. Will continue to follow and will plan for angiogram once her renal function improves or she becomes dialysis dependent. Objective - Vital Signs/Intake and Output Vital Signs (last 24 hours): Vital Signs - 24 hr 10/22/16 10/22/16 10/22/16 16:00 17:43 17:46 Temperature 98.0 F Pulse Rate 96 H Respiratory 20 Rate Blood Pressure 114/57 L 114/57 L O2 Sat by Pulse 97 99 Oximetry 10/22/16 10/23/16 10/23/16 23:44 07:24 13:08 Temperature 98.3 F 98.7 F Pulse Rate 78 77 Respiratory 20 20 Rate Blood Pressure 146/69 155/65 H 130/69 O2 Sat by Pulse 96 96 Oximetry Intake and Output (last 12 hours): Intake & Output 10/22/16 10/23/16 10/23/16 18:59 06:59 18:59 Intake Total 600 Balance 600 Intake: Intake, IV Amount 100 Right Forearm 100 Oral 500 Other: # Voids Urine, Voided 3 # Bowel Movements 1 - Medications Medications: Current Medications Acetylcysteine (Acetylcysteine 20%) 6 ml PO BID [facility] Last Admin: 10/23/16 13:20 Dose: Not Given Alprazolam (Xanax) 0.25 mg PO Q8H PRN PRN Reason: Anxiety Stop: 10/30/16 07:20 Ascorbic Acid (Vitamin C 500 Mg Tab) 500 mg PO DAILY [facility] Last Admin: 10/23/16 10:55 Dose: Not Given Brimonidine Tartrate (Alphagan 0.2% Opht) 0 ml OD TID [facility] Last Admin: 10/23/16 10:50 Dose: 1 units Clotrimazole (Lotrimin 1%) 0 gm TOP BID [facility] Last Admin: 10/23/16 11:36 Dose: 1 u Ergocalciferol (Drisdol 50,000 Intl Units Cap) 1 cap PO Q7D [facility] Last Admin: 10/21/16 21:56 Dose: 1 cap Heparin Sodium (Porcine) (Heparin) 5,000 units SC Q12 [facility] Last Admin: 10/23/16 10:58 Dose: 5,000 units Hydralazine HCl (Apresoline) 50 mg PO BID [facility] Last Admin: 10/23/16 13:12 Dose: 50 mg Piperacillin Sod/Tazobactam (Sod 2.25 gm/ Sodium Chloride) 100 mls @ 200 mls/ hr IVPB Q8H [facility] Last Admin: 10/23/16 13:28 Dose: 200 mls/hr Vancomycin HCl 500 mg/ Sodium (Chloride) 100 mls @ 100 mls/hr IVPB DAILY [facility] Last Admin: 10/23/16 10:45 Dose: 100 mls/hr Insulin Aspart (Novolog) 0 unit SC ACHS [facility] PRN Reason: Protocol Last Admin: 10/23/16 11:38 Dose: 6 unit Latanoprost (Xalatan Opht) 0 ml OD HS [facility] Ondansetron HCl (Zofran Inj) 4 mg IVP Q6H [facility] Last Admin: 10/23/16 13:25 Dose: 4 mg Pantoprazole Sodium (Protonix Ec Tab) 40 mg PO DAILY [facility] Last Admin: 10/23/16 10:56 Dose: Not Given Rosuvastatin Calcium (Crestor) 10 mg PO HS [facility] Last Admin: 10/22/16 21:11 Dose: 10 mg Sevelamer Carbonate (Renvela) 0.8 gm PO TIDCC [facility] Last Admin: 10/23/16 13:13 Dose: Not Given Tramadol HCl (Ultram) 25 mg PO Q6H PRN PRN Reason: PAIN 1-10 Last Admin: 10/22/16 22:46 Dose: 25 mg Vitamin B Complex/Vit C/Folic Acid (Nephro-Alonzo) 1 tab PO DAILY [facility] Last Admin: 10/23/16 11:20 Dose: Not Given - Labs Labs (last 24 hours): Laboratory Results - last 24 hr 10/22/16 10/22/16 10/23/16 16:13 21:32 07:37 WBC 11.6 H RBC 3.62 L Hgb 10.3 L Hct 31.8 L MCV 87.9 D MCH 28.6 MCHC 32.5 L RDW 13.1 Plt Count 317 MPV 10.6 Neut % (Auto) 81.2 H Lymph % (Auto) 9.1 L Ponce % (Auto) 6.8 Eos % (Auto) 1.9 Baso % (Auto) 1.0 Neut # 9.4 H Lymph # 1.1 Ponce # 0.8 Eos # 0.2 Baso # 0.1 Neutrophils % (Manual) 85 H Lymphocytes % (Manual) 12 L Monocytes % (Manual) 2 Eosinophils % (Manual) 1 Platelet Estimate Normal RBC Morphology Normal PT INR APTT Sodium Potassium Chloride Carbon Dioxide Anion Gap BUN Creatinine Est GFR ( Amer) Est GFR (Non-Af Amer) POC Glucose (mg/dL) 451 H* 375 H Random Glucose Calcium Phosphorus Magnesium Total Bilirubin AST ALT Alkaline Phosphatase Total Protein Albumin Globulin Albumin/Globulin Ratio 10/23/16 10/23/16 10/23/16 07:37 08:02 11:09 WBC RBC Hgb Hct MCV MCH MCHC RDW Plt Count MPV Neut % (Auto) Lymph % (Auto) Ponce % (Auto) Eos % (Auto) Baso % (Auto) Neut # Lymph # Ponce # Eos # Baso # Neutrophils % (Manual) Lymphocytes % (Manual) Monocytes % (Manual) Eosinophils % (Manual) Platelet Estimate RBC Morphology PT INR APTT Sodium 132 Potassium 4.6 Chloride 94 L Carbon Dioxide 22 Anion Gap 20 BUN 85 H Creatinine 3.4 H Est GFR ( Amer) 16 Est GFR (Non-Af Amer) 13 POC Glucose (mg/dL) 477 H* > 500 H* Random Glucose 523 H* D Calcium 8.9 Phosphorus 5.2 H Magnesium 2.1 Total Bilirubin 0.7 AST 24 ALT 14 Alkaline Phosphatase 108 Total Protein 6.6 Albumin 3.5 Globulin 3.1 Albumin/Globulin Ratio 1.1 10/23/16 11:28 WBC RBC Hgb Hct MCV MCH MCHC RDW Plt Count MPV Neut % (Auto) Lymph % (Auto) Ponce % (Auto) Eos % (Auto) Baso % (Auto) Neut # Lymph # Ponce # Eos # Baso # Neutrophils % (Manual) Lymphocytes % (Manual) Monocytes % (Manual) Eosinophils % (Manual) Platelet Estimate RBC Morphology PT 10.9 INR 1.0 APTT 30 Sodium Potassium Chloride Carbon Dioxide Anion Gap BUN Creatinine Est GFR ( Amer) Est GFR (Non-Af Amer) POC Glucose (mg/dL) Random Glucose Calcium Phosphorus Magnesium Total Bilirubin AST ALT Alkaline Phosphatase Total Protein Albumin Globulin Albumin/Globulin Ratio
--- NOTE | 2016-10-23 17:09 | CP.PCM.PN ---
Subjective - Date & Time of Evaluation Date of Evaluation: 10/23/16 Time of Evaluation: 15:00 - Subjective Subjective: SEEN ON RENAL F/U RENAL FUNCTION IS GETTIN WORSE .. eGFR 25 --> 17 --> 13 FROM TODAY I WOULDNT RENALY CLEAR PT FOR PERIPHERAL ANGIOGRAM / PLASTY I WILL D/W PT AND THE IF THEY AGREE TO START HD BEFORE ANGIOGRAM MEANWHILE WE STOPPED ALL DUIRETICS AND ARBS OFF FLUID PT HAS SEVERE CHF Objective - Vital Signs/Intake and Output Vital Signs (last 24 hours): Temp Pulse Resp BP Pulse Ox 98.2 F 59 L 20 138/55 L 96 10/23/16 16:00 10/23/16 16:00 10/23/16 16:00 10/23/16 16:00 10/23/16 16:00 Intake and Output: 10/23/16 10/23/16 06:59 18:59 Intake Total 600 Balance 600 - Medications Medications: Current Medications Acetylcysteine (Acetylcysteine 20%) 6 ml PO BID [facility] Last Admin: 10/23/16 13:20 Dose: Not Given Alprazolam (Xanax) 0.25 mg PO Q8H PRN PRN Reason: Anxiety Stop: 10/30/16 07:20 Ascorbic Acid (Vitamin C 500 Mg Tab) 500 mg PO DAILY [facility] Last Admin: 10/23/16 10:55 Dose: Not Given Brimonidine Tartrate (Alphagan 0.2% Opht) 0 ml OD TID [facility] Last Admin: 10/23/16 14:00 Dose: 1 units Clotrimazole (Lotrimin 1%) 0 gm TOP BID [facility] Last Admin: 10/23/16 11:36 Dose: 1 u Ergocalciferol (Drisdol 50,000 Intl Units Cap) 1 cap PO Q7D [facility] Last Admin: 10/21/16 21:56 Dose: 1 cap Heparin Sodium (Porcine) (Heparin) 5,000 units SC Q12 [facility] Last Admin: 10/23/16 10:58 Dose: 5,000 units Hydralazine HCl (Apresoline) 50 mg PO BID [facility] Last Admin: 10/23/16 13:12 Dose: 50 mg Piperacillin Sod/Tazobactam (Sod 2.25 gm/ Sodium Chloride) 100 mls @ 200 mls/ hr IVPB Q8H [facility] Last Admin: 10/23/16 13:28 Dose: 200 mls/hr Vancomycin HCl 500 mg/ Sodium (Chloride) 100 mls @ 100 mls/hr IVPB DAILY [facility] Last Admin: 10/23/16 10:45 Dose: 100 mls/hr Insulin Aspart (Novolog) 0 unit SC ACHS [facility] PRN Reason: Protocol Last Admin: 10/23/16 16:42 Dose: 6 unit Latanoprost (Xalatan Opht) 0 ml OD HS [facility] Ondansetron HCl (Zofran Inj) 4 mg IVP Q6H [facility] Last Admin: 10/23/16 13:25 Dose: 4 mg Pantoprazole Sodium (Protonix Ec Tab) 40 mg PO DAILY [facility] Last Admin: 10/23/16 10:56 Dose: Not Given Rosuvastatin Calcium (Crestor) 10 mg PO HS [facility] Last Admin: 10/22/16 21:11 Dose: 10 mg Sevelamer Carbonate (Renvela) 0.8 gm PO TIDCC [facility] Last Admin: 10/23/16 13:13 Dose: Not Given Tramadol HCl (Ultram) 25 mg PO Q6H PRN PRN Reason: PAIN 1-10 Last Admin: 10/22/16 22:46 Dose: 25 mg Vitamin B Complex/Vit C/Folic Acid (Nephro-Alonzo) 1 tab PO DAILY [facility] Last Admin: 10/23/16 11:20 Dose: Not Given - Labs Labs: 10/23/16 07:37 10/23/16 07:37 PT 10.9 SECONDS (9.7-12.2) 10/23/16 11:28 INR 1.0 10/23/16 11:28 APTT 30 SECONDS (21-34) 10/23/16 11:28 Assessment and Plan - Assessment and Plan (Free Text) Assessment: A ON CKD .. RENAL FUNCTION GETTING WORSE PUY OFF CARDIAC CATH TILL NEXT WEEK TO POSSIBLY IMPROVE THE ELLIOT FUNCTION ANEMIA OF CKD .. H/H STABLE L INFECTED DIABETIC FOOT .. WIH SEVERE ARTERIAL SCLEROSIS P : D/C ALL DIURETICS D/C [place]AN AVOID ANY NEPHROTOXIC MEDS WILL MONITOR RENAL FUNCTION VERY CLOSELY CASE D/W DR SANDRA THE I.RADIOLOGIST CASE D/W FLOW NURSE
[2016-10-23] MEDS ORDERED: (Lantus) Insulin Glargine, Recombinant SC SCH (22:00)
[2016-10-23] MEDS: Latanoprost 2.5 ml Opht Soln OD SCH (22:01)
[2016-10-23] MEDS: Sodium Chloride 0.45% 1,000 ML IV SCH (22:15)
[2016-10-23] MEDS ORDERED: (Lantus) Insulin Glargine, Recombinant SC ONE (22:35)
[2016-10-24] MEDS ORDERED: (Novolin R) Insulin Human Regular 100 units/ml vial SC STA (04:23)
[2016-10-24] MEDS: Piperacillin/Tazobact 2.25 GM in Sodium Chloride 100 ML IVPB SCH ×3 (04:30→21:17)
--- NOTE | 2016-10-24 07:34 | CP.PCM.PN ---
<Kacey Barnes - Last Filed: 10/24/16 21:28> Subjective - Date & Time of Evaluation Date of Evaluation: 10/24/16 Time of Evaluation: 08:45 - Subjective Subjective: PGY1 Medicine note for Dr. Myrick Patient seen and examined at bedside. Patient reports she doesn't feel well and is still nauseous. She denies fever, chills, headache, dizziness, chest pain, palpitations, shortness of breath, bowel/bladder pain. Left foot dressings clean /dry/intact. Objective - Vital Signs/Intake and Output Vital Signs (last 24 hours): Temp Pulse Resp BP Pulse Ox 98.2 F 80 20 131/72 95 10/24/16 00:09 10/24/16 00:09 10/24/16 00:09 10/24/16 00:09 10/24/16 00:09 Intake and Output: 10/24/16 10/24/16 06:59 18:59 Intake Total 950 Balance 950 - Medications Medications: Current Medications Acetylcysteine (Acetylcysteine 20%) 6 ml PO BID [facility] Last Admin: 10/23/16 20:47 Dose: 6 ml Alprazolam (Xanax) 0.25 mg PO Q8H PRN PRN Reason: Anxiety Stop: 10/30/16 07:20 Last Admin: 10/24/16 00:11 Dose: 0.25 mg Ascorbic Acid (Vitamin C 500 Mg Tab) 500 mg PO DAILY [facility] Last Admin: 10/23/16 10:55 Dose: Not Given Brimonidine Tartrate (Alphagan 0.2% Opht) 0 ml OD TID [facility] Last Admin: 10/23/16 17:48 Dose: 1 applic Cilostazol (Pletal) 50 mg PO BID [facility] Clotrimazole (Lotrimin 1%) 0 gm TOP BID [facility] Last Admin: 10/23/16 18:00 Dose: 1 applic Ergocalciferol (Drisdol 50,000 Intl Units Cap) 1 cap PO Q7D [facility] Last Admin: 10/21/16 21:56 Dose: 1 cap Escitalopram Oxalate (Lexapro) 10 mg PO DAILY [facility] Heparin Sodium (Porcine) (Heparin) 5,000 units SC Q12 [facility] Last Admin: 10/23/16 22:18 Dose: Not Given Hydralazine HCl (Apresoline) 50 mg PO BID [facility] Last Admin: 10/23/16 17:42 Dose: 50 mg Piperacillin Sod/Tazobactam (Sod 2.25 gm/ Sodium Chloride) 100 mls @ 200 mls/ hr IVPB Q8H [facility] Last Admin: 10/24/16 04:30 Dose: 200 mls/hr Vancomycin HCl 500 mg/ Sodium (Chloride) 100 mls @ 100 mls/hr IVPB DAILY [facility] Last Admin: 10/23/16 10:45 Dose: 100 mls/hr Sodium Chloride (Sodium Chloride 0.45%) 1,000 mls @ 80 mls/hr IV .[id number] [facility] Last Admin: 10/23/16 22:15 Dose: 80 mls/hr Insulin Aspart (Novolog) [address] [facility] PRN Reason: Protocol Last Admin: 10/23/16 22:44 Dose: 3 unit Insulin Glargine (Lantus) 15 unit SC [facility] Latanoprost (Xalatan Opht) 0 ml OD [facility] Last Admin: 10/23/16 22:01 Dose: 2.5 ml Ondansetron HCl (Zofran Inj) 4 mg IVP Q6H [facility] Last Admin: 10/24/16 06:15 Dose: 4 mg Pantoprazole Sodium (Protonix Ec Tab) 40 mg PO DAILY [facility] Last Admin: 10/23/16 10:56 Dose: Not Given Rosuvastatin Calcium (Crestor) 10 mg PO HS [facility] Last Admin: 10/23/16 22:01 Dose: 10 mg Sevelamer Carbonate (Renvela) 0.8 gm PO TIDCC [facility] Last Admin: 10/23/16 17:00 Dose: 0.8 gm Tramadol HCl (Ultram) 25 mg PO Q6H PRN PRN Reason: PAIN 1-10 Last Admin: 10/22/16 22:46 Dose: 25 mg Vitamin B Complex/Vit C/Folic Acid (Nephro-Alonzo) 1 tab PO DAILY [facility] Last Admin: 10/23/16 11:20 Dose: Not Given - Labs Labs: 10/23/16 07:37 10/23/16 07:37 PT 10.9 SECONDS (9.7-12.2) 10/23/16 11:28 INR 1.0 10/23/16 11:28 APTT 30 SECONDS (21-34) 10/23/16 11:28 - Constitutional Appears: Non-toxic - Head Exam Head Exam: ATRAUMATIC, NORMAL INSPECTION, NORMOCEPHALIC - Eye Exam Eye Exam: Normal appearance. absent: Conjunctival injection, Scleral icterus - ENT Exam ENT Exam: Mucous Membranes Moist - Neck Exam Neck Exam: Normal Inspection - Respiratory Exam Respiratory Exam: Clear to Ausculation Bilateral, NORMAL BREATHING PATTERN. absent: Accessory Muscle Use, Rales, Rhonchi, Wheezes - Cardiovascular Exam Cardiovascular Exam: REGULAR RHYTHM, RRR, +S1, +S2 - GI/Abdominal Exam GI & Abdominal Exam: Soft, Normal Bowel Sounds. absent: Distended, Firm, Guarding - Extremities Exam Extremities Exam: Pedal Edema, Tenderness Additional comments: Decreased pulses worse on L L foot wrapping clean/dry/intact - Neurological Exam Neurological Exam: Alert, Awake, Oriented x3 - Psychiatric Exam Psychiatric exam: Anxious, Depressed - Skin Skin Exam: Dry, Intact, Normal Color, Warm Assessment and Plan - Assessment and Plan (Free Text) Assessment: 71 yo female with PMHx of CKD stage III, CHF?, HTN, CAD, DM2, anxiety, anemia of chronic disease, chronic low back pain presented with ulcer on her left foot Plan: Left lateral foot ulcer -likely Velazco stage 2 diabetic foot ulcer without infection/ischemia vs ulcer secondary to PAD -Left heel x-ray: limited vsiualization of anterior calcaneus. No acute displaced fracture. -Arterial PVR/SEG: Right negative; Left secerely decreased perfusion of the LLE noted at superficial, popliteal, and tibial A levels -LE Arterial scan: R possible occlusion of R posterior tibial A [50-75% stenosis of right mid popliteal A]; L possible occlusion of L proximal and sital posterior and proximal anterior tibial arteries; greater than 75% stenosis of the left distal superficial femoral and mid popliteal arteries; 50- 75% stenosis of L proximal poplitearl artery; recommend angiogram with endovascular repair -blood culture prelim gram negative kendy -SCDs c/i -Zosyn 2.25gm IVPB Q8H renally dosed -Vancomycin 500mg IVPB Qdaily renally dosed -Tramadol 25mg po q6 PRN pain -Tylenol with codeine 1 po q6 PRN pain -Venous dopplers negative b/l -Physical therapy -Wound care -Clotrimazole top bid -ID: Dr Wellington consulted -IR : Dr Roman consulted -Surgery: Dr Melendez consulted Peripheral Arterial Disease -Angiogram pending renal function improvement vs dialysis -Arterial PVR/SEG: Right negative; Left secerely decreased perfusion of the LLE noted at superficial, popliteal, and tibial A levels -LE Arterial scan: R possible occlusion of R posterior tibial A [50-75% stenosis of right mid popliteal A]; L possible occlusion of L proximal and sital posterior and proximal anterior tibial arteries; greater than 75% stenosis of the left distal superficial femoral and mid popliteal arteries; 50- 75% stenosis of L proximal poplitearl artery; recommend angiogram with endovascular repair -Pletal 50mg po bid -IR: Dr. Roman consulted CKD Stage IV -worsening renal function -Cr 3.4 this AM -as per nephrology diuretics on hold -Acetylcysteine 6ml po bid -Ascorbic acid 500mg po daily -Renvela 0.8gm po TIDCC -Drisdol 50,000 1 cap po q7days -Nephrovite 1 tab po daily -as per Primary patient is on 1/2NS @ 80cc/hr -f/u renal u/s -Nephrology: Dr Ambrose consulted HTN -Hydralazine 50mg po bid -HCTZ 25mg po daily -Losartan 100mg po daily -Torsemide 100mg po daily Glaucoma -Alphagan 0.2% 0ml OD TID -Xalatan OD HS CAD -Hydralazine 50mg po bid -HCTZ 25mg po daily -Losartan 100mg po daily -Crestor 10mg po hs -Lipid panel TG 248 Cholesterol 217 LDL 113 HDL 39 DM2 -RISS high dose -Accucheck ACHS -Lantus 15U SC HS -HgbA1c 12.2 Anxiety and depression -Xanax 0.25mg po q8 prn -Lexapro 10mg po daily Anemia of chronic disease -H&H on admission is 10.2 and 30.9 -Monitor for acute changes -Dr. Ambrose nephrology consulted Chronic LBP -no acute complaints on admission -Monitor CHF -As per medical records patient has hx of CHF -Echo in 2016 in medical records is unremarkable with normal EF -Echo: small to moderate circumferential pericardial effusion. No evidence of tamponade. The LV systolic function is normal. Elevated LA pressure. RV systolic function is normal. There is a trace aortic regurgitation. Mild mitral regurgitation. There is mild to moderate tricuspid regurgitation. RV systolic pressure is estimated at ~44mmHg compatible with mild pulmonary HTN PPX -Heparin 5000U SC Q12 -Protonix 40mg po daily -Zofran 4mg IVP q6 [facility] -Heart healthy moderate consistent carb diet with fluid restriction -SCDs c/i -PT Plan discussed with Dr. Ramez Barnes PGY1 <Benson Myrick Jr. - Last Filed: 10/25/16 13:33> Objective - Vital Signs/Intake and Output Vital Signs (last 24 hours): Temp Pulse Resp BP Pulse Ox 98 F 93 H 20 160/63 H 98 10/25/16 08:00 10/25/16 08:00 10/25/16 08:00 10/25/16 08:00 10/25/16 08:00 Intake and Output: 10/25/16 10/25/16 06:59 18:59 Intake Total 820 Balance 820 - Medications Medications: Current Medications Acetylcysteine (Acetylcysteine 20%) 6 ml PO BID [facility] Last Admin: 10/25/16 11:32 Dose: 6 ml Alprazolam (Xanax) 0.25 mg PO Q8H PRN PRN Reason: Anxiety Stop: 10/30/16 07:20 Last Admin: 10/24/16 00:11 Dose: 0.25 mg Ascorbic Acid (Vitamin C 500 Mg Tab) 500 mg PO DAILY [facility] Last Admin: 10/25/16 09:59 Dose: 500 mg Brimonidine Tartrate (Alphagan 0.2% Opht) 0 ml OD TID [facility] Last Admin: 10/25/16 09:59 Dose: 1 applic Cilostazol (Pletal) 50 mg PO BID [facility] Last Admin: 10/25/16 10:10 Dose: 50 mg Clotrimazole (Lotrimin 1%) 0 gm TOP BID [facility] Last Admin: 10/25/16 10:10 Dose: 1 applic Ergocalciferol (Drisdol 50,000 Intl Units Cap) 1 cap PO Q7D [facility] Last Admin: 10/21/16 21:56 Dose: 1 cap Escitalopram Oxalate (Lexapro) 10 mg PO DAILY [facility] Last Admin: 10/25/16 09:58 Dose: 10 mg Heparin Sodium (Porcine) (Heparin) 5,000 units SC Q12 [facility] Last Admin: 10/25/16 09:59 Dose: 5,000 units Hydralazine HCl (Apresoline) 50 mg PO BID [facility] Last Admin: 10/25/16 09:59 Dose: 50 mg Piperacillin Sod/Tazobactam (Sod 2.25 gm/ Sodium Chloride) 100 mls @ 200 mls/ hr IVPB Q8H [facility] Last Admin: 10/25/16 05:00 Dose: 200 mls/hr Vancomycin HCl 500 mg/ Sodium (Chloride) 100 mls @ 100 mls/hr IVPB DAILY [facility] Last Admin: 10/25/16 12:11 Dose: 100 mls/hr Sodium Chloride (Sodium Chloride 0.45%) 1,000 mls @ 80 mls/hr IV .[id number] [facility] Last Admin: 10/25/16 12:22 Dose: Not Given Insulin Aspart (Novolog) 0 unit SC ACHS [facility] PRN Reason: Protocol Last Admin: 10/25/16 12:40 Dose: 12 unit Insulin Glargine (Lantus) 15 unit SC HS [facility] Last Admin: 10/24/16 21:20 Dose: 15 u Latanoprost (Xalatan Opht) 0 ml OD HS [facility] Last Admin: 10/24/16 21:15 Dose: 2.5 ml Ondansetron HCl (Zofran Inj) 4 mg IVP Q6H [facility] Last Admin: 10/25/16 12:41 Dose: 4 mg Pantoprazole Sodium (Protonix Ec Tab) 40 mg PO DAILY [facility] Last Admin: 10/25/16 09:58 Dose: 40 mg Rosuvastatin Calcium (Crestor) 10 mg PO HS [facility] Last Admin: 10/24/16 21:23 Dose: 10 mg Sevelamer Carbonate (Renvela) 0.8 gm PO TIDCC [facility] Last Admin: 10/25/16 12:41 Dose: 0.8 gm Tramadol HCl (Ultram) 25 mg PO Q6H PRN PRN Reason: PAIN 1-10 Last Admin: 10/25/16 06:14 Dose: 25 mg Vitamin B Complex/Vit C/Folic Acid (Nephro-Alonzo) 1 tab PO DAILY [facility] Last Admin: 10/25/16 09:58 Dose: 1 tab - Labs Labs: 10/25/16 07:00 10/25/16 07:00 PT 10.9 SECONDS (9.7-12.2) 10/23/16 11:28 INR 1.0 10/23/16 11:28 APTT 30 SECONDS (21-34) 10/23/16 11:28 Attending/Attestation - Attestation I have personally seen and examined this patient.: Yes I have fully participated in the care of the patient.: Yes I have reviewed all pertinent clinical information, including history, physical exam and plan: Yes Notes (Text): 10/25/16 13:33 Agree with resident note and findings
[2016-10-24 08:12] LABS: BASO # 0.1 K/uL (0.0-0.2); BASO % 1.1 % (0.0-2.0); EOS # 0.3 K/uL (0.0-0.7); EOS % 2.3 % (0.0-4.0); HEMATOCRIT 27.8 % (34.0-47.0); LYMPH # 1.5 K/uL (1.0-4.3); LYMPH % 12.2 % (20.0-40.0); MEAN CELL VOLUME 88.3 fL (81.0-99.0); MEAN CORPUSCULAR HEMOGLOBIN 28.8 pg (27.0-31.0); MEAN CORPUSCULAR HGB CONC 32.6 g/dL (33.0-37.0); MEAN PLATELET VOLUME 10.2 fL (7.2-11.7); MONO # 1.3 K/uL (0.0-0.8); MONO % 11.3 % (0.0-10.0); NRBC % 0.1 % (0.0-2.0); RED CELL DISTRIBUTION WIDTH 12.6 % (11.5-14.5); WHITE BLOOD COUNT 11.9 K/uL (4.8-10.8)
[2016-10-24 08:27] LABS: POTASSIUM 4.4 mmol/L (3.6-5.2)
[2016-10-24 08:29] LABS: ALB/GLOB RATIO 1.1 (1.0-2.1); BILIRUBIN,TOTAL 0.5 mg/dL (0.2-1.3)
[2016-10-24 08:30] LABS: CALCIUM 8.5 mg/dl (8.6-10.4); MAGNESIUM 2.3 mg/dL (1.6-2.3); PHOSPHOROUS 5.5 mg/dL (2.5-4.5)
[2016-10-24] MEDS: (Novolog) Insulin Aspart, Recombinant 100 u/ml 10 ml vial SC SCH ×4 (08:53→21:18)
[2016-10-24] MEDS: Sevelamer Carb 0.8 gm/Packet PO SCH ×3 (08:55→17:22)
[2016-10-24] MEDS: Cilostazol 50 mg Tab UD PO SCH ×2 (10:27→21:16)
[2016-10-24] MEDS: Brimonidine 0.2% Opth Sol (5ml) OD SCH ×3 (10:28→18:00)
[2016-10-24] MEDS: Multivitamin Vitamin B Complex (Nephro-Vite) Tab PO SCH (10:29)
[2016-10-24] MEDS: Clotrimazole 1% Cream(30 gm) TOP SCH ×2 (10:30→17:24)
[2016-10-24] MEDS: Pantoprazole 40 mg EC Tab PO SCH (10:30)
[2016-10-24] MEDS: Sodium Chloride 0.45% 1,000 ML IV SCH ×3 (10:49→23:15)
[2016-10-24] MEDS: Acetylcysteine 20% Inhal Soln (4ml) PO SCH (12:22)
[2016-10-24] MEDS: Tramadol 25 mg PO PRN (14:15)
--- NOTE | 2016-10-24 17:26 | CP.PCM.PN ---
Subjective - Date & Time of Evaluation Date of Evaluation: 10/24/16 Time of Evaluation: 07:00 - Subjective Subjective: wound cultures noted iv rx in progress poor prognosis Objective - Vital Signs/Intake and Output Vital Signs (last 24 hours): Temp Pulse Resp BP Pulse Ox 98.1 F 68 20 104/60 96 10/24/16 15:00 10/24/16 15:00 10/24/16 15:00 10/24/16 15:00 10/24/16 15:00 Intake and Output: 10/24/16 10/24/16 06:59 18:59 Intake Total 950 1030 Balance 950 1030 - Medications Medications: Current Medications Acetylcysteine (Acetylcysteine 20%) 6 ml PO BID [facility] Last Admin: 10/24/16 12:22 Dose: 6 ml Alprazolam (Xanax) 0.25 mg PO Q8H PRN PRN Reason: Anxiety Stop: 10/30/16 07:20 Last Admin: 10/24/16 00:11 Dose: 0.25 mg Ascorbic Acid (Vitamin C 500 Mg Tab) 500 mg PO DAILY [facility] Last Admin: 10/24/16 10:26 Dose: 500 mg Brimonidine Tartrate (Alphagan 0.2% Opht) 0 ml OD TID [facility] Last Admin: 10/24/16 14:08 Dose: 1 applic Cilostazol (Pletal) 50 mg PO BID [facility] Last Admin: 10/24/16 10:27 Dose: 50 mg Clotrimazole (Lotrimin 1%) 0 gm TOP BID [facility] Last Admin: 10/24/16 10:30 Dose: 1 applic Ergocalciferol (Drisdol 50,000 Intl Units Cap) 1 cap PO Q7D [facility] Last Admin: 10/21/16 21:56 Dose: 1 cap Escitalopram Oxalate (Lexapro) 10 mg PO DAILY [facility] Last Admin: 10/24/16 10:30 Dose: 10 mg Heparin Sodium (Porcine) (Heparin) 5,000 units SC Q12 [facility] Last Admin: 10/24/16 10:26 Dose: 5,000 units Hydralazine HCl (Apresoline) 50 mg PO BID [facility] Last Admin: 10/24/16 17:19 Dose: 50 mg Piperacillin Sod/Tazobactam (Sod 2.25 gm/ Sodium Chloride) 100 mls @ 200 mls/ hr IVPB Q8H [facility] Last Admin: 10/24/16 14:08 Dose: 200 mls/hr Vancomycin HCl 500 mg/ Sodium (Chloride) 100 mls @ 100 mls/hr IVPB DAILY [facility] Last Admin: 10/24/16 10:29 Dose: 100 mls/hr Sodium Chloride (Sodium Chloride 0.45%) 1,000 mls @ 80 mls/hr IV .[id number] [facility] Last Admin: 10/24/16 17:18 Dose: 80 mls/hr Insulin Aspart (Novolog) 0 unit SC ACHS [facility] PRN Reason: Protocol Last Admin: 10/24/16 17:20 Dose: 10 unit Insulin Glargine (Lantus) 15 unit SC HS [facility] Latanoprost (Xalatan Opht) 0 ml OD HS [facility] Last Admin: 10/23/16 22:01 Dose: 2.5 ml Ondansetron HCl (Zofran Inj) 4 mg IVP Q6H [facility] Last Admin: 10/24/16 14:09 Dose: 4 mg Pantoprazole Sodium (Protonix Ec Tab) 40 mg PO DAILY [facility] Last Admin: 10/24/16 10:30 Dose: 40 mg Rosuvastatin Calcium (Crestor) 10 mg PO HS [facility] Last Admin: 10/23/16 22:01 Dose: 10 mg Sevelamer Carbonate (Renvela) 0.8 gm PO TIDCC [facility] Last Admin: 10/24/16 17:22 Dose: 0.8 gm Tramadol HCl (Ultram) 25 mg PO Q6H PRN PRN Reason: PAIN 1-10 Last Admin: 10/24/16 14:15 Dose: 25 mg Vitamin B Complex/Vit C/Folic Acid (Nephro-Alonzo) 1 tab PO DAILY [facility] Last Admin: 10/24/16 10:29 Dose: 1 tab - Labs Labs: 10/24/16 07:58 10/24/16 07:58 PT 10.9 SECONDS (9.7-12.2) 10/23/16 11:28 INR 1.0 10/23/16 11:28 APTT 30 SECONDS (21-34) 10/23/16 11:28 - Constitutional Appears: Non-toxic, Cachectic, Chronically Ill - Head Exam Head Exam: NORMOCEPHALIC - Eye Exam Eye Exam: PERRL. absent: Scleral icterus - ENT Exam ENT Exam: Mucous Membranes Dry - Neck Exam Neck Exam: absent: Lymphadenopathy - Respiratory Exam Respiratory Exam: Decreased Breath Sounds, Clear to Ausculation Bilateral - Cardiovascular Exam Cardiovascular Exam: REGULAR RHYTHM, +S1, +S2 - GI/Abdominal Exam GI & Abdominal Exam: Distended, Soft. absent: Tenderness - Rectal Exam Rectal Exam: Deferred - Exam Exam: NORMAL INSPECTION - Extremities Exam Extremities Exam: Pedal Edema. absent: Calf Tenderness - Back Exam Back Exam: absent: CVA tenderness (L), CVA tenderness (R) Assessment and Plan (1) Cellulitis of foot Status: Acute (2) Foot ulcer Status: Acute (3) Peripheral vascular disease Status: Acute (4) NAVEEN (acute kidney injury) Status: Acute (5) Accelerated hypertension Status: Acute (6) Acute exacerbation of CHF (congestive heart failure) Status: Acute (7) CKD (chronic kidney disease) stage 3, GFR 30-59 ml/min Status: Chronic (8) DM2 (diabetes mellitus, type 2) Status: Chronic (9) Dyslipidemia Status: Chronic (10) IDDM (insulin dependent diabetes mellitus) Status: Chronic
--- NOTE | 2016-10-24 18:03 | CARD ---
APPROVED REPORT EXAM: Two-dimensional and M-mode echocardiogram with Doppler and color Doppler. Other Information Quality : FairRhythm : NSR INDICATION CAD Congestive Heart Failure RISK FACTORS Hypertension Hyperlipidemia Diabetes M-Mode DIMENSIONS RVDd2.33 (2.1-3.2cm)Left Atrium (MM)3.83 (2.5-4.0cm) IVSd1.15 (0.7-1.1cm)Aortic Root2.85 (2.2-3.7cm) LVDd4.79 (4.0-5.6cm)Aortic Cusp Exc.1.99 (1.5-2.0cm) PWd0.87 (0.7-1.1cm)FS (%) 39 % LVDs2.90 (2.0-3.8cm)LVEF (%)70 (>50%) Mitral Valve MV E Hgsxsfvu027.3cm/sMV A Vxqgynkc215.9cm/sE/A ratio1.3 TDI E/Lateral E'0.0E/Medial E'0.0 Tricuspid Valve TR Peak [id number]/sTR Peak Gr.[id number] LEFT VENTRICLE The left ventricle is normal size. There is normal left ventricular wall thickness. The left ventricular systolic function is normal. The left ventricular ejection fraction is within the normal range. There is normal LV segmental wall motion. Elevated left atrial pressure by Tissue Doppler. RIGHT VENTRICLE The right ventricle is normal size. The right ventricular systolic function is normal. ATRIA The left atrium is borderline dilated. The right atrium size is normal. AORTIC VALVE The aortic valve shows mild calcifications but opens well. There is a trace aortic regurgitation. MITRAL VALVE The mitral valve is normal in structure. Mitral regurgitation is mild. TRICUSPID VALVE There is mild to moderate tricuspid regurgitation. Right ventricular systolic pressure is estimated at 44 mmHg. There is mild pulmonary hypertension. PULMONIC VALVE The pulmonary valve is normal in structure. There is mild pulmonic valvular regurgitation. GREAT VESSELS The aortic root is normal in size. The IVC is normal in size and collapses >50% with inspiration. PERICARDIAL EFFUSION There is a small-moderate circumferential pericardial effusion. No evidence of tamponade. <Conclusion> There is a small to moderate circumferential pericardial effusion. No evidence of tamponade. The left ventricular systolic function is normal. Elevated left atrial pressure by Tissue Doppler. The right ventricular systolic function is normal. There is a trace aortic regurgitation. Mild mitral regurgitation. There is mild to moderate tricuspid regurgitation. Right ventricular systolic pressure is estimated at - 44 mmHg compatible with mild pulmonary hypertension.
[2016-10-24] MEDS: Latanoprost 2.5 ml Opht Soln OD SCH (21:15)
[2016-10-25] MEDS: Piperacillin/Tazobact 2.25 GM in Sodium Chloride 100 ML IVPB SCH ×2 (05:00→14:40)
[2016-10-25] MEDS: Sodium Chloride 0.45% 1,000 ML IV SCH ×3 (05:05→19:51)
[2016-10-25] MEDS: Tramadol 25 mg PO PRN (06:14)
[2016-10-25 07:19] LABS: BASO # 0.1 K/uL (0.0-0.2); BASO % 1.2 % (0.0-2.0); EOS # 0.6 K/uL (0.0-0.7); EOS % 5.1 % (0.0-4.0); HEMATOCRIT 29.4 % (34.0-47.0); LYMPH # 1.4 K/uL (1.0-4.3); LYMPH % 11.6 % (20.0-40.0); MEAN CELL VOLUME 87.3 fL (81.0-99.0); MEAN CORPUSCULAR HEMOGLOBIN 28.5 pg (27.0-31.0); MEAN CORPUSCULAR HGB CONC 32.6 g/dL (33.0-37.0); MEAN PLATELET VOLUME 10.6 fL (7.2-11.7); MONO % 8.2 % (0.0-10.0); RED CELL DISTRIBUTION WIDTH 13.1 % (11.5-14.5); WHITE BLOOD COUNT 11.9 K/uL (4.8-10.8)
[2016-10-25 07:34] LABS: POTASSIUM 4.8 mmol/L (3.6-5.2)
[2016-10-25 07:36] LABS: ALB/GLOB RATIO 1.1 (1.0-2.1); BILIRUBIN,TOTAL 0.6 mg/dL (0.2-1.3)
[2016-10-25 07:37] LABS: CALCIUM 8.1 mg/dl (8.6-10.4); MAGNESIUM 2.3 mg/dL (1.6-2.3); PHOSPHOROUS 5.9 mg/dL (2.5-4.5)
--- NOTE | 2016-10-25 08:29 | CP.PCM.PN ---
Subjective - Date & Time of Evaluation Date of Evaluation: 10/24/16 Time of Evaluation: 13:00 - Subjective Subjective: SEEN ON RENAL F/U CASE D/W PT AND ..THEY WERE MADE AWARE THAT PT WILL NEED TO START ON HD CASE D/W DR ALATORRE .. FOR L LEG ANGIOGRAM / PLASTY ON MON CASE D/W DR COYLE CASE D/W DR FISHER .. PT WILL BE STARTING ON HD IN PREPARATION FOR ANGIOGRAM WILL KEEP CLOSE EYE ON PT Objective - Vital Signs/Intake and Output Vital Signs (last 24 hours): Temp Pulse Resp BP Pulse Ox 98 F 70 20 104/59 L 98 10/25/16 00:00 10/25/16 00:00 10/25/16 00:00 10/25/16 00:00 10/25/16 00:00 Intake and Output: 10/25/16 10/25/16 06:59 18:59 Intake Total 820 Balance 820 - Medications Medications: Current Medications Acetylcysteine (Acetylcysteine 20%) 6 ml PO BID [facility] Last Admin: 10/24/16 12:22 Dose: 6 ml Alprazolam (Xanax) 0.25 mg PO Q8H PRN PRN Reason: Anxiety Stop: 10/30/16 07:20 Last Admin: 10/24/16 00:11 Dose: 0.25 mg Ascorbic Acid (Vitamin C 500 Mg Tab) 500 mg PO DAILY [facility] Last Admin: 10/24/16 10:26 Dose: 500 mg Brimonidine Tartrate (Alphagan 0.2% Opht) 0 ml OD TID [facility] Last Admin: 10/24/16 18:00 Dose: 1 applic Cilostazol (Pletal) 50 mg PO BID [facility] Last Admin: 10/24/16 21:16 Dose: 50 mg Clotrimazole (Lotrimin 1%) 0 gm TOP BID [facility] Last Admin: 10/24/16 17:24 Dose: 1 applic Ergocalciferol (Drisdol 50,000 Intl Units Cap) 1 cap PO Q7D [facility] Last Admin: 10/21/16 21:56 Dose: 1 cap Escitalopram Oxalate (Lexapro) 10 mg PO DAILY [facility] Last Admin: 10/24/16 10:30 Dose: 10 mg Heparin Sodium (Porcine) (Heparin) 5,000 units SC Q12 [facility] Last Admin: 10/24/16 21:23 Dose: 5,000 units Hydralazine HCl (Apresoline) 50 mg PO BID [facility] Last Admin: 10/24/16 17:19 Dose: 50 mg Piperacillin Sod/Tazobactam (Sod 2.25 gm/ Sodium Chloride) 100 mls @ 200 mls/ hr IVPB Q8H [facility] Last Admin: 10/25/16 05:00 Dose: 200 mls/hr Vancomycin HCl 500 mg/ Sodium (Chloride) 100 mls @ 100 mls/hr IVPB DAILY [facility] Last Admin: 10/24/16 10:29 Dose: 100 mls/hr Sodium Chloride (Sodium Chloride 0.45%) 1,000 mls @ 80 mls/hr IV .[id number] [facility] Last Admin: 10/25/16 05:05 Dose: 80 mls/hr Insulin Aspart (Novolog) 0 unit SC ACHS [facility] PRN Reason: Protocol Last Admin: 10/24/16 21:18 Dose: 3 unit Insulin Glargine (Lantus) 15 unit SC HS [facility] Last Admin: 10/24/16 21:20 Dose: 15 u Latanoprost (Xalatan Opht) 0 ml OD HS [facility] Last Admin: 10/24/16 21:15 Dose: 2.5 ml Ondansetron HCl (Zofran Inj) 4 mg IVP Q6H [facility] Last Admin: 10/25/16 06:16 Dose: 4 mg Pantoprazole Sodium (Protonix Ec Tab) 40 mg PO DAILY [facility] Last Admin: 10/24/16 10:30 Dose: 40 mg Rosuvastatin Calcium (Crestor) 10 mg PO HS [facility] Last Admin: 10/24/16 21:23 Dose: 10 mg Sevelamer Carbonate (Renvela) 0.8 gm PO TIDCC [facility] Last Admin: 10/24/16 17:22 Dose: 0.8 gm Tramadol HCl (Ultram) 25 mg PO Q6H PRN PRN Reason: PAIN 1-10 Last Admin: 10/25/16 06:14 Dose: 25 mg Vitamin B Complex/Vit C/Folic Acid (Nephro-Alonzo) 1 tab PO DAILY [facility] Last Admin: 10/24/16 10:29 Dose: 1 tab - Labs Labs: 10/25/16 07:00 10/25/16 07:00 PT 10.9 SECONDS (9.7-12.2) 10/23/16 11:28 INR 1.0 10/23/16 11:28 APTT 30 SECONDS (21-34) 10/23/16 11:28 Assessment and Plan - Assessment and Plan (Free Text) Assessment: A ON CKD .. RENAL FUNCTION GOING DOWN .. WILL PREPARE TO START ON HD ALLL DUIRETICS AND ARBS WERE D/C PT WAS STARTED ON IVF BY DR FISHER WILL MONITOR VERY CLOSELY OVER THE WEEK END
[2016-10-25] MEDS: (Novolog) Insulin Aspart, Recombinant 100 u/ml 10 ml vial SC SCH ×4 (09:34→21:44)
[2016-10-25] MEDS: Sevelamer Carb 0.8 gm/Packet PO SCH ×3 (09:35→17:45)
[2016-10-25] MEDS: Multivitamin Vitamin B Complex (Nephro-Vite) Tab PO SCH (09:58)
[2016-10-25] MEDS: Pantoprazole 40 mg EC Tab PO SCH (09:58)
[2016-10-25] MEDS: Brimonidine 0.2% Opth Sol (5ml) OD SCH ×3 (09:59→17:46)
[2016-10-25] MEDS: Cilostazol 50 mg Tab UD PO SCH ×2 (10:10→18:21)
[2016-10-25] MEDS: Clotrimazole 1% Cream(30 gm) TOP SCH ×2 (10:10→18:21)
[2016-10-25] MEDS: Acetylcysteine 20% Inhal Soln (4ml) PO SCH ×2 (11:32→17:40)
--- NOTE | 2016-10-25 13:42 | CP.PCM.PN ---
<Asia Williamson - Last Filed: 10/25/16 13:39> Subjective - Date & Time of Evaluation Date of Evaluation: 10/25/16 Time of Evaluation: 12:00 - Subjective Subjective: PGY1 Medicine note for Dr. Myrick Patient seen and examined at bedside. Patient reports she doesn't feel well and is still nauseous. She denies fever, chills, headache, dizziness, chest pain, palpitations, shortness of breath, bowel/bladder pain. Left foot dressings clean /dry/intact. All antibiotics were stopped due to increasing creatine. Objective - Vital Signs/Intake and Output Vital Signs (last 24 hours): Temp Pulse Resp BP Pulse Ox 98 F 93 H 20 160/63 H 98 10/25/16 08:00 10/25/16 08:00 10/25/16 08:00 10/25/16 08:00 10/25/16 08:00 Intake and Output: 10/25/16 10/25/16 06:59 18:59 Intake Total 820 Balance 820 - Medications Medications: Current Medications Acetylcysteine (Acetylcysteine 20%) 6 ml PO BID [facility] Last Admin: 10/25/16 11:32 Dose: 6 ml Alprazolam (Xanax) 0.25 mg PO Q8H PRN PRN Reason: Anxiety Stop: 10/30/16 07:20 Last Admin: 10/24/16 00:11 Dose: 0.25 mg Ascorbic Acid (Vitamin C 500 Mg Tab) 500 mg PO DAILY [facility] Last Admin: 10/25/16 09:59 Dose: 500 mg Brimonidine Tartrate (Alphagan 0.2% Opht) 0 ml OD TID [facility] Last Admin: 10/25/16 09:59 Dose: 1 applic Cilostazol (Pletal) 50 mg PO BID [facility] Last Admin: 10/25/16 10:10 Dose: 50 mg Clotrimazole (Lotrimin 1%) 0 gm TOP BID [facility] Last Admin: 10/25/16 10:10 Dose: 1 applic Ergocalciferol (Drisdol 50,000 Intl Units Cap) 1 cap PO Q7D [facility] Last Admin: 10/21/16 21:56 Dose: 1 cap Escitalopram Oxalate (Lexapro) 10 mg PO DAILY [facility] Last Admin: 10/25/16 09:58 Dose: 10 mg Heparin Sodium (Porcine) (Heparin) 5,000 units SC Q12 [facility] Last Admin: 10/25/16 09:59 Dose: 5,000 units Hydralazine HCl (Apresoline) 50 mg PO BID [facility] Last Admin: 10/25/16 09:59 Dose: 50 mg Sodium Chloride (Sodium Chloride 0.45%) 1,000 mls @ 80 mls/hr IV .[id number] [facility] Last Admin: 10/25/16 12:22 Dose: Not Given Insulin Aspart (Novolog) 0 unit SC ACHS [facility] PRN Reason: Protocol Last Admin: 10/25/16 12:40 Dose: 12 unit Insulin Glargine (Lantus) 30 unit SC HS [facility] Latanoprost (Xalatan Opht) 0 ml OD HS [facility] Last Admin: 10/24/16 21:15 Dose: 2.5 ml Ondansetron HCl (Zofran Inj) 4 mg IVP Q6H [facility] Last Admin: 10/25/16 12:41 Dose: 4 mg Pantoprazole Sodium (Protonix Ec Tab) 40 mg PO DAILY [facility] Last Admin: 10/25/16 09:58 Dose: 40 mg Rosuvastatin Calcium (Crestor) 10 mg PO HS [facility] Last Admin: 10/24/16 21:23 Dose: 10 mg Sevelamer Carbonate (Renvela) 0.8 gm PO TIDCC [facility] Last Admin: 10/25/16 12:41 Dose: 0.8 gm Tramadol HCl (Ultram) 25 mg PO Q6H PRN PRN Reason: PAIN 1-10 Last Admin: 10/25/16 06:14 Dose: 25 mg Vitamin B Complex/Vit C/Folic Acid (Nephro-Alonzo) 1 tab PO DAILY [facility] Last Admin: 10/25/16 09:58 Dose: 1 tab - Labs Labs: 10/25/16 07:00 10/25/16 07:00 PT 10.9 SECONDS (9.7-12.2) 10/23/16 11:28 INR 1.0 10/23/16 11:28 APTT 30 SECONDS (21-34) 10/23/16 11:28 - Constitutional Appears: No Acute Distress - Head Exam Head Exam: NORMAL INSPECTION, NORMOCEPHALIC - Respiratory Exam Respiratory Exam: Clear to Ausculation Bilateral, NORMAL BREATHING PATTERN. absent: Wheezes - Cardiovascular Exam Cardiovascular Exam: REGULAR RHYTHM, RRR, +S1, +S2 - GI/Abdominal Exam GI & Abdominal Exam: Soft, Normal Bowel Sounds. absent: Distended, Tenderness - Extremities Exam Extremities Exam: Normal Inspection, Pedal Edema, Tenderness Additional comments: Decreased pulses worse on L L foot wrapping clean/dry/intact - Neurological Exam Neurological Exam: Alert, Awake, Oriented x3 - Skin Skin Exam: Dry, Intact, Normal Color, Warm Assessment and Plan - Assessment and Plan (Free Text) Assessment: 71 yo female with PMHx of CKD stage III, CHF?, HTN, CAD, DM2, anxiety, anemia of chronic disease, chronic low back pain presented with ulcer on her left foot. Plan: Left lateral foot ulcer -likely Velazco stage 2 diabetic foot ulcer without infection/ischemia vs ulcer secondary to PAD -Left heel x-ray: limited vsiualization of anterior calcaneus. No acute displaced fracture. -Arterial PVR/SEG: Right negative; Left secerely decreased perfusion of the LLE noted at superficial, popliteal, and tibial A levels -LE Arterial scan: R possible occlusion of R posterior tibial A [50-75% stenosis of right mid popliteal A]; L possible occlusion of L proximal and sital posterior and proximal anterior tibial arteries; greater than 75% stenosis of the left distal superficial femoral and mid popliteal arteries; 50- 75% stenosis of L proximal poplitearl artery; recommend angiogram with endovascular repair -blood culture prelim gram negative kendy -SCDs c/i - Vanco and Zosyn were DC due to worsening renal function -Tramadol 25mg po q6 PRN pain -Tylenol with codeine 1 po q6 PRN pain -Venous dopplers negative b/l -Physical therapy -Wound care -Clotrimazole top bid -ID: Dr Wellington consulted -IR : Dr Roman consulted -Surgery: Dr Melendez consulted Peripheral Arterial Disease -Angiogram pending renal function improvement vs dialysis -Arterial PVR/SEG: Right negative; Left secerely decreased perfusion of the LLE noted at superficial, popliteal, and tibial A levels -LE Arterial scan: R possible occlusion of R posterior tibial A [50-75% stenosis of right mid popliteal A]; L possible occlusion of L proximal and sital posterior and proximal anterior tibial arteries; greater than 75% stenosis of the left distal superficial femoral and mid popliteal arteries; 50- 75% stenosis of L proximal poplitearl artery; recommend angiogram with endovascular repair -Pletal 50mg po bid -IR: Dr. Roman consulted CKD Stage IV -worsening renal function -Cr 4.9 this AM -as per nephrology diuretics on hold -Acetylcysteine 6ml po bid -Ascorbic acid 500mg po daily -Renvela 0.8gm po TIDCC -Drisdol 50,000 1 cap po q7days -Nephrovite 1 tab po daily -as per Primary patient is on 1/2NS @ 80cc/hr -f/u renal u/s -Nephrology: Dr Ambrose consulted HTN -Hydralazine 50mg po bid -HCTZ 25mg po daily -Losartan 100mg po daily -Torsemide 100mg po daily Glaucoma -Alphagan 0.2% 0ml OD TID -Xalatan OD HS CAD -Hydralazine 50mg po bid -HCTZ 25mg po daily -Losartan 100mg po daily -Crestor 10mg po hs -Lipid panel TG 248 Cholesterol 217 LDL 113 HDL 39 DM2 -RISS high dose -Accucheck ACHS -Lantus 15U SC HS -HgbA1c 12.2 Anxiety and depression -Xanax 0.25mg po q8 prn -Lexapro 10mg po daily Anemia of chronic disease -H&H on admission is 10.2 and 30.9 -Monitor for acute changes -Dr. Ambrose nephrology consulted Chronic LBP -no acute complaints on admission -Monitor CHF -As per medical records patient has hx of CHF -Echo in 2016 in medical records is unremarkable with normal EF -Echo 10/23/16: small to moderate circumferential pericardial effusion. No evidence of tamponade. The LV systolic function is normal. Elevated LA pressure. RV systolic function is normal. There is a trace aortic regurgitation. Mild mitral regurgitation. There is mild to moderate tricuspid regurgitation. RV systolic pressure is estimated at ~44mmHg compatible with mild pulmonary HTN PPX -Heparin 5000U SC Q12 -Protonix 40mg po daily -Zofran 4mg IVP q6 ELINA -Heart healthy moderate consistent carb diet with fluid restriction -SCDs c/i -PT Plan discussed with Dr. Ramez Williamson DO, PGY1 <Benson Myrick Jr. - Last Filed: 11/01/16 18:46> Objective - Vital Signs/Intake and Output Vital Signs (last 24 hours): Temp Pulse Resp BP Pulse Ox 98.2 F 85 20 124/69 96 11/01/16 15:48 11/01/16 17:55 11/01/16 17:55 11/01/16 17:55 11/01/16 15:48 Intake and Output: 11/01/16 11/01/16 06:59 18:59 Intake Total 200 450 Balance 200 450 - Medications Medications: Current Medications Acetylcysteine (Acetylcysteine 20%) 6 ml PO BID [facility] Last Admin: 10/31/16 17:36 Dose: 6 ml Ascorbic Acid (Vitamin C 500 Mg Tab) 500 mg PO DAILY [facility] Last Admin: 11/01/16 13:08 Dose: 500 mg Brimonidine Tartrate (Alphagan 0.2% Opht) 0 ml OD TID [facility] Last Admin: 11/01/16 13:09 Dose: 1 applic Clotrimazole (Lotrimin 1%) 0 gm TOP QSHIFT [facility] Last Admin: 11/01/16 13:07 Dose: 1 applic Epoetin Maxwell (Procrit) 10,000 unit IV TTS [facility] Last Admin: 11/01/16 10:25 Dose: 10,000 unit Ergocalciferol (Drisdol 50,000 Intl Units Cap) 1 cap PO Q7D [facility] Last Admin: 10/28/16 21:16 Dose: 1 cap Escitalopram Oxalate (Lexapro) 10 mg PO DAILY [facility] Last Admin: 11/01/16 13:10 Dose: 10 mg Ferric Sodium Gluconate Complex (Ferrlecit) 125 mg IVPB TTS [facility] Stop: 11/07/16 16:01 Last Admin: 11/01/16 10:25 Dose: 125 mg Heparin Sodium (Porcine) (Heparin) 2,000 units IVP TuThSa [facility] Last Admin: 11/01/16 10:26 Dose: 2,000 units Hydralazine HCl (Apresoline) 50 mg PO BID [facility] Last Admin: 11/01/16 17:54 Dose: 50 mg Cefepime HCl (Maxipime Iv 1 Gm Premix) 1 gm in 50 mls @ 100 mls/hr IVPB Q24H [facility] Last Admin: 11/01/16 16:45 Dose: 100 mls/hr Insulin Glargine (Lantus) 30 unit SC HS [facility] Last Admin: 10/31/16 21:49 Dose: 30 units Insulin Human Regular (Novolin R) 0 unit SC ACHS [facility] PRN Reason: Protocol Last Admin: 11/01/16 17:53 Dose: 1 unit Latanoprost (Xalatan Opht) 0 ml OD HS [facility] Last Admin: 10/31/16 21:49 Dose: 2.5 ml Losartan Potassium (Cozaar) 50 mg PO Q24H [facility] Last Admin: 11/01/16 17:54 Dose: 50 mg Megestrol Acetate (Megace) 400 mg PO DAILY [facility] Last Admin: 11/01/16 13:08 Dose: 400 mg Metoclopramide HCl (Reglan) 10 mg IVP ACHS PRN PRN Reason: Nausea/Vomiting Last Admin: 10/28/16 11:08 Dose: 10 mg Ondansetron HCl (Zofran Inj) 4 mg IVP 0730,1130,1630,2200 [facility] Last Admin: 11/01/16 16:44 Dose: 4 mg Pantoprazole Sodium (Protonix Ec Tab) 40 mg PO DAILY [facility] Last Admin: 11/01/16 13:09 Dose: 40 mg Rosuvastatin Calcium (Crestor) 10 mg PO HS [facility] Last Admin: 10/31/16 21:49 Dose: 10 mg Sevelamer Carbonate (Renvela) 0.8 gm PO TIDCC [facility] Last Admin: 11/01/16 17:54 Dose: 0.8 gm Tramadol HCl (Ultram) 25 mg PO Q6H PRN PRN Reason: PAIN 1-10 Last Admin: 11/01/16 16:45 Dose: 25 mg Vitamin B Complex/Vit C/Folic Acid (Nephro-Alonzo) 1 tab PO DAILY [facility] Last Admin: 11/01/16 13:11 Dose: 1 tab - Labs Labs: 11/01/16 07:17 11/01/16 07:17 PT 11.3 SECONDS (9.7-12.2) 10/30/16 06:02 INR 1.0 10/30/16 06:02 APTT 28 SECONDS (21-34) 10/30/16 06:02 Attending/Attestation - Attestation I have personally seen and examined this patient.: Yes I have fully participated in the care of the patient.: Yes I have reviewed all pertinent clinical information, including history, physical exam and plan: Yes Notes (Text): 11/01/16 18:46 Agree with resident note and findings
--- NOTE | 2016-10-25 16:50 | US ---
PROCEDURE: Ultrasound of the Kidneys HISTORY: ckd COMPARISON: None available. TECHNIQUE: Sonogram of the kidneys. FINDINGS: RIGHT KIDNEY: Measures: 10.4 cm. Increased in echogenicity which can be seen in medical renal disease. Nonobstructing 0.5 cm upper/ midpole stone. No cyst, or hydronephrosis is identified. LEFT KIDNEY: Measures: 11.5 cm. Increased in echogenicity which can be seen in medical renal disease.. No shadowing renal stone, cyst, or hydronephrosis is identified. OTHER FINDINGS: Visualized portions of the aorta are normal in caliber. Visualized portions of the urinary bladder are incompletely distended. IMPRESSION: Increased echogenicity of the kidneys which can be seen in medical renal disease. Right kidney with a nonobstructing 0.5 cm stone.
[2016-10-25] MEDS: (Lantus) Insulin Glargine, Recombinant SC SCH (21:27)
[2016-10-25] MEDS: Latanoprost 2.5 ml Opht Soln OD SCH (21:29)
[2016-10-26] MEDS: Sodium Chloride 0.45% 1,000 ML IV SCH ×2 (00:26→13:54)
[2016-10-26 06:58] LABS: BASO # 0.1 K/uL (0.0-0.2); BASO % 0.7 % (0.0-2.0); EOS # 0.5 K/uL (0.0-0.7); HEMATOCRIT 29.7 % (34.0-47.0); LYMPH # 1.5 K/uL (1.0-4.3); LYMPH % 11.4 % (20.0-40.0); MEAN CELL VOLUME 86.4 fL (81.0-99.0); MEAN CORPUSCULAR HGB CONC 32.4 g/dL (33.0-37.0); MEAN PLATELET VOLUME 10.3 fL (7.2-11.7); MONO % 7.7 % (0.0-10.0); RED CELL DISTRIBUTION WIDTH 12.7 % (11.5-14.5)
[2016-10-26 07:26] LABS: POTASSIUM 4.3 mmol/L (3.6-5.2)
[2016-10-26 07:28] LABS: BILIRUBIN,TOTAL 0.4 mg/dL (0.2-1.3)
[2016-10-26 07:29] LABS: TOTAL PROTEIN 6.6 g/dL (6.3-8.3)
[2016-10-26 07:30] LABS: CALCIUM 8.3 mg/dl (8.6-10.4)
--- NOTE | 2016-10-26 08:14 | CP.PCM.PN ---
<Asia Williamson - Last Filed: 10/26/16 13:45> Subjective - Date & Time of Evaluation Date of Evaluation: 10/26/16 Time of Evaluation: 07:00 - Subjective Subjective: Medicine Note for Dr. Myrick, Patient seen and examined at bedside. No acute complaints this morning. She denies fever, chills, headache, dizziness, chest pain, palpitations, shortness of breath, bowel/bladder pain. Left foot dressings clean/dry/intact. Plan is for hemodialysis catheter placement today with Dr. Melendez and possible dialysis today or tomorrow. IV ABX still on hold - Objective - Vital Signs/Intake and Output Vital Signs (last 24 hours): Temp Pulse Resp BP Pulse Ox 97.7 F 92 H 20 150/65 94 L 10/26/16 00:00 10/26/16 00:00 10/26/16 00:00 10/26/16 00:00 10/26/16 00:00 Intake and Output: 10/26/16 10/26/16 06:59 18:59 Intake Total 640 Balance 640 - Medications Medications: Current Medications Acetylcysteine (Acetylcysteine 20%) 6 ml PO BID [facility] Last Admin: 10/25/16 17:40 Dose: 6 ml Alprazolam (Xanax) 0.25 mg PO Q8H PRN PRN Reason: Anxiety Stop: 10/30/16 07:20 Last Admin: 10/24/16 00:11 Dose: 0.25 mg Ascorbic Acid (Vitamin C 500 Mg Tab) 500 mg PO DAILY [facility] Last Admin: 10/25/16 09:59 Dose: 500 mg Brimonidine Tartrate (Alphagan 0.2% Opht) 0 ml OD TID [facility] Last Admin: 10/25/16 17:46 Dose: 1 applic Cilostazol (Pletal) 50 mg PO BID [facility] Last Admin: 10/25/16 18:21 Dose: 50 mg Clotrimazole (Lotrimin 1%) 0 gm TOP BID [facility] Last Admin: 10/25/16 18:21 Dose: 1 applic Ergocalciferol (Drisdol 50,000 Intl Units Cap) 1 cap PO Q7D [facility] Last Admin: 10/21/16 21:56 Dose: 1 cap Escitalopram Oxalate (Lexapro) 10 mg PO DAILY [facility] Last Admin: 10/25/16 09:58 Dose: 10 mg Heparin Sodium (Porcine) (Heparin) 5,000 units SC Q12 [facility] Last Admin: 10/25/16 22:00 Dose: 5,000 units Hydralazine HCl (Apresoline) 50 mg PO BID [facility] Last Admin: 10/25/16 17:42 Dose: 50 mg Sodium Chloride (Sodium Chloride 0.45%) 1,000 mls @ 80 mls/hr IV .[id number] [facility] Last Admin: 10/26/16 00:26 Dose: Not Given Insulin Aspart (Novolog) 0 unit SC ACHS [facility] PRN Reason: Protocol Last Admin: 10/25/16 21:44 Dose: Not Given Insulin Glargine (Lantus) 30 unit SC HS [facility] Last Admin: 10/25/16 21:27 Dose: 30 units Latanoprost (Xalatan Opht) 0 ml OD HS [facility] Last Admin: 10/25/16 21:29 Dose: 2.5 ml Ondansetron HCl (Zofran Inj) 4 mg IVP Q6H [facility] Last Admin: 10/26/16 07:30 Dose: 4 mg Pantoprazole Sodium (Protonix Ec Tab) 40 mg PO DAILY [facility] Last Admin: 10/25/16 09:58 Dose: 40 mg Rosuvastatin Calcium (Crestor) 10 mg PO HS [facility] Last Admin: 10/25/16 21:26 Dose: 10 mg Sevelamer Carbonate (Renvela) 0.8 gm PO TIDCC [facility] Last Admin: 10/25/16 17:45 Dose: 0.8 gm Tramadol HCl (Ultram) 25 mg PO Q6H PRN PRN Reason: PAIN 1-10 Last Admin: 10/25/16 06:14 Dose: 25 mg Vitamin B Complex/Vit C/Folic Acid (Nephro-Alonzo) 1 tab PO DAILY [facility] Last Admin: 10/25/16 09:58 Dose: 1 tab - Labs Labs: 10/26/16 06:50 10/25/16 07:00 PT 10.9 SECONDS (9.7-12.2) 10/23/16 11:28 INR 1.0 10/23/16 11:28 APTT 30 SECONDS (21-34) 10/23/16 11:28 - Constitutional Appears: No Acute Distress - Head Exam Head Exam: NORMAL INSPECTION, NORMOCEPHALIC - ENT Exam ENT Exam: Mucous Membranes Moist - Respiratory Exam Respiratory Exam: Clear to Ausculation Bilateral, NORMAL BREATHING PATTERN. absent: Wheezes - Cardiovascular Exam Cardiovascular Exam: REGULAR RHYTHM, RRR, +S1, +S2 - GI/Abdominal Exam GI & Abdominal Exam: Soft, Normal Bowel Sounds. absent: Distended, Tenderness - Extremities Exam Extremities Exam: Normal Inspection. absent: Pedal Edema, Tenderness Additional comments: Decreased pulses worse on L L foot wrapping clean/dry/intact - Neurological Exam Neurological Exam: Alert, Awake, Oriented x3 - Skin Skin Exam: Dry, Intact, Normal Color, Warm Assessment and Plan - Assessment and Plan (Free Text) Assessment: 71 yo female with PMHx of CKD stage III, CHF?, HTN, CAD, DM2, anxiety, anemia of chronic disease, chronic low back pain presented with ulcer on her left foot. Plan: CKD Stage IV -worsening renal function -Cr 4.9 this AM -as per nephrology diuretics on hold -Acetylcysteine 6ml po bid -Ascorbic acid 500mg po daily -Renvela 0.8gm po TIDCC -Drisdol 50,000 1 cap po q7days -Nephrovite 1 tab po daily -as per Primary patient is on 1/2NS @ 80cc/hr -Renal u/s: medical renal disease, right kidney with nonobstructing 0.5cm stone -Nephrology: Dr Ambrose consulted -Patient is to have hemodialysis catheter placed today with Dr. Melendez, for dialysis today or Thursday morning. Left lateral foot ulcer -likely Velazco stage 2 diabetic foot ulcer without infection/ischemia vs ulcer secondary to PAD -Left heel x-ray: limited vsiualization of anterior calcaneus. No acute displaced fracture. -Arterial PVR/SEG: Right negative; Left secerely decreased perfusion of the LLE noted at superficial, popliteal, and tibial A levels -LE Arterial scan: R possible occlusion of R posterior tibial A [50-75% stenosis of right mid popliteal A]; L possible occlusion of L proximal and sital posterior and proximal anterior tibial arteries; greater than 75% stenosis of the left distal superficial femoral and mid popliteal arteries; 50- 75% stenosis of L proximal poplitearl artery; recommend angiogram with endovascular repair -blood culture prelim gram negative kendy -SCDs c/i - Vanco and Zosyn were DC due to worsening renal function -Tramadol 25mg po q6 PRN pain -Tylenol with codeine 1 po q6 PRN pain -Venous dopplers negative b/l -Physical therapy -Wound care -Clotrimazole top bid -ID: Dr Wellington consulted -IR : Dr Roman consulted -Surgery: Dr Melendez consulted Peripheral Arterial Disease -Angiogram pending renal function improvement vs dialysis -Arterial PVR/SEG: Right negative; Left secerely decreased perfusion of the LLE noted at superficial, popliteal, and tibial A levels -LE Arterial scan: R possible occlusion of R posterior tibial A [50-75% stenosis of right mid popliteal A]; L possible occlusion of L proximal and sital posterior and proximal anterior tibial arteries; greater than 75% stenosis of the left distal superficial femoral and mid popliteal arteries; 50- 75% stenosis of L proximal poplitearl artery; recommend angiogram with endovascular repair -Pletal 50mg po bid -IR: Dr. Roman consulted HTN -Hydralazine 50mg po bid -HCTZ 25mg po daily -Losartan 100mg po daily -Torsemide 100mg po daily Glaucoma -Alphagan 0.2% 0ml OD TID -Xalatan OD HS CAD -Hydralazine 50mg po bid -HCTZ 25mg po daily -Losartan 100mg po daily -Crestor 10mg po hs -Lipid panel TG 248 Cholesterol 217 LDL 113 HDL 39 DM2 -RISS high dose -Accucheck ACHS -Lantus 15U SC HS -HgbA1c 12.2 Anxiety and depression -Xanax 0.25mg po q8 prn -Lexapro 10mg po daily Anemia of chronic disease -H&H on admission is 10.2 and 30.9 -Monitor for acute changes -Dr. Ambrose nephrology consulted Chronic LBP -no acute complaints on admission -Monitor CHF -As per medical records patient has hx of CHF -Echo in 2016 in medical records is unremarkable with normal EF -Echo 10/23/16: small to moderate circumferential pericardial effusion. No evidence of tamponade. The LV systolic function is normal. Elevated LA pressure. RV systolic function is normal. There is a trace aortic regurgitation. Mild mitral regurgitation. There is mild to moderate tricuspid regurgitation. RV systolic pressure is estimated at ~44mmHg compatible with mild pulmonary HTN PPX -Heparin 5000U SC Q12 -Protonix 40mg po daily -Zofran 4mg IVP q6 ELINA -Heart healthy moderate consistent carb diet with fluid restriction -SCDs c/i -PT Plan discussed with Dr. Ramez Williamson DO, PGY1 <Benson Myrick Jr. - Last Filed: 11/01/16 18:50> Objective - Vital Signs/Intake and Output Vital Signs (last 24 hours): Temp Pulse Resp BP Pulse Ox 98.2 F 85 20 124/69 96 11/01/16 15:48 11/01/16 17:55 11/01/16 17:55 11/01/16 17:55 11/01/16 15:48 Intake and Output: 11/01/16 11/01/16 06:59 18:59 Intake Total 200 450 Balance 200 450 - Medications Medications: Current Medications Acetylcysteine (Acetylcysteine 20%) 6 ml PO BID [facility] Last Admin: 10/31/16 17:36 Dose: 6 ml Ascorbic Acid (Vitamin C 500 Mg Tab) 500 mg PO DAILY [facility] Last Admin: 11/01/16 13:08 Dose: 500 mg Brimonidine Tartrate (Alphagan 0.2% Opht) 0 ml OD TID [facility] Last Admin: 11/01/16 13:09 Dose: 1 applic Clotrimazole (Lotrimin 1%) 0 gm TOP QSHIFT [facility] Last Admin: 11/01/16 13:07 Dose: 1 applic Epoetin Maxwell (Procrit) 10,000 unit IV TTS [facility] Last Admin: 11/01/16 10:25 Dose: 10,000 unit Ergocalciferol (Drisdol 50,000 Intl Units Cap) 1 cap PO Q7D [facility] Last Admin: 10/28/16 21:16 Dose: 1 cap Escitalopram Oxalate (Lexapro) 10 mg PO DAILY [facility] Last Admin: 11/01/16 13:10 Dose: 10 mg Ferric Sodium Gluconate Complex (Ferrlecit) 125 mg IVPB TTS [facility] Stop: 11/07/16 16:01 Last Admin: 11/01/16 10:25 Dose: 125 mg Heparin Sodium (Porcine) (Heparin) 2,000 units IVP TuThSa [facility] Last Admin: 11/01/16 10:26 Dose: 2,000 units Hydralazine HCl (Apresoline) 50 mg PO BID [facility] Last Admin: 11/01/16 17:54 Dose: 50 mg Cefepime HCl (Maxipime Iv 1 Gm Premix) 1 gm in 50 mls @ 100 mls/hr IVPB Q24H [facility] Last Admin: 11/01/16 16:45 Dose: 100 mls/hr Insulin Glargine (Lantus) 30 unit SC HS [facility] Last Admin: 10/31/16 21:49 Dose: 30 units Insulin Human Regular (Novolin R) 0 unit SC ACHS [facility] PRN Reason: Protocol Last Admin: 11/01/16 17:53 Dose: 1 unit Latanoprost (Xalatan Opht) 0 ml OD HS [facility] Last Admin: 10/31/16 21:49 Dose: 2.5 ml Losartan Potassium (Cozaar) 50 mg PO Q24H [facility] Last Admin: 11/01/16 17:54 Dose: 50 mg Megestrol Acetate (Megace) 400 mg PO DAILY [facility] Last Admin: 11/01/16 13:08 Dose: 400 mg Metoclopramide HCl (Reglan) 10 mg IVP ACHS PRN PRN Reason: Nausea/Vomiting Last Admin: 10/28/16 11:08 Dose: 10 mg Ondansetron HCl (Zofran Inj) 4 mg IVP 0730,1130,1630,2200 [facility] Last Admin: 11/01/16 16:44 Dose: 4 mg Pantoprazole Sodium (Protonix Ec Tab) 40 mg PO DAILY [facility] Last Admin: 11/01/16 13:09 Dose: 40 mg Rosuvastatin Calcium (Crestor) 10 mg PO HS [facility] Last Admin: 10/31/16 21:49 Dose: 10 mg Sevelamer Carbonate (Renvela) 0.8 gm PO TIDCC [facility] Last Admin: 11/01/16 17:54 Dose: 0.8 gm Tramadol HCl (Ultram) 25 mg PO Q6H PRN PRN Reason: PAIN 1-10 Last Admin: 11/01/16 16:45 Dose: 25 mg Vitamin B Complex/Vit C/Folic Acid (Nephro-Alonzo) 1 tab PO DAILY [facility] Last Admin: 11/01/16 13:11 Dose: 1 tab - Labs Labs: 11/01/16 07:17 11/01/16 07:17 PT 11.3 SECONDS (9.7-12.2) 10/30/16 06:02 INR 1.0 10/30/16 06:02 APTT 28 SECONDS (21-34) 10/30/16 06:02 Attending/Attestation - Attestation I have personally seen and examined this patient.: Yes I have fully participated in the care of the patient.: Yes I have reviewed all pertinent clinical information, including history, physical exam and plan: Yes Notes (Text): 11/01/16 18:50 Agree with resident note and findings
[2016-10-26] MEDS: (Novolog) Insulin Aspart, Recombinant 100 u/ml 10 ml vial SC SCH ×4 (08:41→22:03)
[2016-10-26] MEDS: Sevelamer Carb 0.8 gm/Packet PO SCH ×4 (08:41→16:53)
[2016-10-26] MEDS: Brimonidine 0.2% Opth Sol (5ml) OD SCH ×3 (09:34→17:15)
[2016-10-26] MEDS: Acetylcysteine 20% Inhal Soln (4ml) PO SCH ×2 (09:34→17:22)
--- NOTE | 2016-10-26 09:34 | CP.PCM.PN ---
Subjective - Date & Time of Evaluation Date of Evaluation: 10/25/16 Time of Evaluation: 14:00 - Subjective Subjective: PT WAS SEEN ON RENAL F/U RENAL FUNCTION CONTINUES TO DETERIORATE EXPLAINED TO PT THAT SHE NEEDS TO START ON HD .. PT WAS CRYING WILL HAVE DR COYLE INSERT HD ACCESS Objective - Vital Signs/Intake and Output Vital Signs (last 24 hours): Temp Pulse Resp BP Pulse Ox 97.7 F 92 H 20 150/65 94 L 10/26/16 00:00 10/26/16 00:00 10/26/16 00:00 10/26/16 00:00 10/26/16 00:00 Intake and Output: 10/26/16 10/26/16 06:59 18:59 Intake Total 640 Balance 640 - Medications Medications: Current Medications Acetylcysteine (Acetylcysteine 20%) 6 ml PO BID COUNTS INCLUDE 234 BEDS AT THE [facility] Last Admin: 10/25/16 17:40 Dose: 6 ml Alprazolam (Xanax) 0.25 mg PO Q8H PRN PRN Reason: Anxiety Stop: 10/30/16 07:20 Last Admin: 10/24/16 00:11 Dose: 0.25 mg Ascorbic Acid (Vitamin C 500 Mg Tab) 500 mg PO DAILY COUNTS INCLUDE 234 BEDS AT THE [facility] Last Admin: 10/25/16 09:59 Dose: 500 mg Brimonidine Tartrate (Alphagan 0.2% Opht) 0 ml OD TID COUNTS INCLUDE 234 BEDS AT THE [facility] Last Admin: 10/25/16 17:46 Dose: 1 applic Cilostazol (Pletal) 50 mg PO BID COUNTS INCLUDE 234 BEDS AT THE [facility] Last Admin: 10/25/16 18:21 Dose: 50 mg Clotrimazole (Lotrimin 1%) 0 gm TOP BID COUNTS INCLUDE 234 BEDS AT THE [facility] Last Admin: 10/25/16 18:21 Dose: 1 applic Ergocalciferol (Drisdol 50,000 Intl Units Cap) 1 cap PO Q7D COUNTS INCLUDE 234 BEDS AT THE [facility] Last Admin: 10/21/16 21:56 Dose: 1 cap Escitalopram Oxalate (Lexapro) 10 mg PO DAILY COUNTS INCLUDE 234 BEDS AT THE [facility] Last Admin: 10/25/16 09:58 Dose: 10 mg Heparin Sodium (Porcine) (Heparin) 5,000 units SC Q12 COUNTS INCLUDE 234 BEDS AT THE [facility] Last Admin: 10/25/16 22:00 Dose: 5,000 units Hydralazine HCl (Apresoline) 50 mg PO BID COUNTS INCLUDE 234 BEDS AT THE [facility] Last Admin: 06/03/17 17:42 Dose: 50 mg Sodium Chloride (Sodium Chloride 0.45%) 1,000 mls @ 80 mls/hr IV .[id number] COUNTS INCLUDE 234 BEDS AT THE [facility] Last Admin: 10/26/16 00:26 Dose: Not Given Insulin Aspart (Novolog) 0 unit SC ACHS COUNTS INCLUDE 234 BEDS AT THE [facility] PRN Reason: Protocol Last Admin: 10/26/16 08:41 Dose: Not Given Insulin Glargine (Lantus) 30 unit SC HS COUNTS INCLUDE 234 BEDS AT THE [facility] Last Admin: 10/25/16 21:27 Dose: 30 units Latanoprost (Xalatan Opht) 0 ml OD HS COUNTS INCLUDE 234 BEDS AT THE [facility] Last Admin: 10/25/16 21:29 Dose: 2.5 ml Ondansetron HCl (Zofran Inj) 4 mg IVP Q6H COUNTS INCLUDE 234 BEDS AT THE [facility] Last Admin: 10/26/16 07:30 Dose: 4 mg Pantoprazole Sodium (Protonix Ec Tab) 40 mg PO DAILY COUNTS INCLUDE 234 BEDS AT THE [facility] Last Admin: 10/25/16 09:58 Dose: 40 mg Rosuvastatin Calcium (Crestor) 10 mg PO HS COUNTS INCLUDE 234 BEDS AT THE [facility] Last Admin: 10/25/16 21:26 Dose: 10 mg Sevelamer Carbonate (Renvela) 0.8 gm PO TIDCC COUNTS INCLUDE 234 BEDS AT THE [facility] Last Admin: 10/26/16 08:41 Dose: Not Given Tramadol HCl (Ultram) 25 mg PO Q6H PRN PRN Reason: PAIN 1-10 Last Admin: 10/25/16 06:14 Dose: 25 mg Vitamin B Complex/Vit C/Folic Acid (Nephro-Alonzo) 1 tab PO DAILY COUNTS INCLUDE 234 BEDS AT THE [facility] Last Admin: 10/25/16 09:58 Dose: 1 tab - Labs Labs: 10/26/16 06:50 10/26/16 06:50 PT 10.9 SECONDS (9.7-12.2) 10/23/16 11:28 INR 1.0 10/23/16 11:28 APTT 30 SECONDS (21-34) 10/23/16 11:28 Assessment and Plan - Assessment and Plan (Free Text) Plan: A ON CKD .. PT NEEDS TO START ON HD SUGGEST : D/C PLETAL IT IS CONTRAINDICATED IN CHF C/O CURRENT CARE FOR HD CATH .. WE CAN START HD TODAY AFTER CATH INSERTION
[2016-10-26] MEDS: Multivitamin Vitamin B Complex (Nephro-Vite) Tab PO SCH (09:37)
[2016-10-26] MEDS: Clotrimazole 1% Cream(30 gm) TOP SCH ×2 (09:37→17:34)
[2016-10-26] MEDS: Cilostazol 50 mg Tab UD PO SCH ×2 (09:38→17:35)
[2016-10-26] MEDS: Pantoprazole 40 mg EC Tab PO SCH (09:38)
[2016-10-26] MEDS ORDERED: Oxycodone/Acetaminophen 5/325 mg Tab PO ONE (13:30)
--- NOTE | 2016-10-26 16:05 | CP.PCM.PN ---
Subjective - Date & Time of Evaluation Date of Evaluation: 10/26/16 Time of Evaluation: 09:00 - Subjective Subjective: mri pending iv rx in progress less pain and discomfort prognosis guarded Objective - Vital Signs/Intake and Output Vital Signs (last 24 hours): Temp Pulse Resp BP Pulse Ox 97.5 F L 96 H 20 148/74 96 10/26/16 08:00 10/26/16 08:00 10/26/16 08:00 10/26/16 13:00 10/26/16 08:00 Intake and Output: 10/26/16 10/26/16 06:59 18:59 Intake Total 640 1040 Balance 640 1040 - Medications Medications: Current Medications Acetylcysteine (Acetylcysteine 20%) 6 ml PO BID [facility] Last Admin: 10/26/16 09:34 Dose: 6 ml Alprazolam (Xanax) 0.25 mg PO Q8H PRN PRN Reason: Anxiety Stop: 10/30/16 07:20 Last Admin: 10/24/16 00:11 Dose: 0.25 mg Ascorbic Acid (Vitamin C 500 Mg Tab) 500 mg PO DAILY [facility] Last Admin: 10/26/16 09:38 Dose: 500 mg Brimonidine Tartrate (Alphagan 0.2% Opht) 0 ml OD TID [facility] Last Admin: 10/26/16 13:51 Dose: 1 applic Cilostazol (Pletal) 50 mg PO BID [facility] Last Admin: 10/26/16 09:38 Dose: 50 mg Clotrimazole (Lotrimin 1%) 0 gm TOP BID [facility] Last Admin: 10/26/16 09:37 Dose: 1 applic Ergocalciferol (Drisdol 50,000 Intl Units Cap) 1 cap PO Q7D [facility] Last Admin: 10/21/16 21:56 Dose: 1 cap Escitalopram Oxalate (Lexapro) 10 mg PO DAILY [facility] Last Admin: 10/26/16 09:36 Dose: 10 mg Heparin Sodium (Porcine) (Heparin) 5,000 units SC Q12 [facility] Last Admin: 10/26/16 09:43 Dose: Not Given Hydralazine HCl (Apresoline) 50 mg PO BID [facility] Last Admin: 10/26/16 09:35 Dose: 50 mg Sodium Chloride (Sodium Chloride 0.45%) 1,000 mls @ 80 mls/hr IV .[id number] [facility] Last Admin: 10/26/16 13:54 Dose: Not Given Insulin Aspart (Novolog) 0 unit SC ACHS [facility] PRN Reason: Protocol Last Admin: 10/26/16 12:31 Dose: Not Given Insulin Glargine (Lantus) 30 unit SC [facility] Last Admin: 10/25/16 21:27 Dose: 30 units Latanoprost (Xalatan Opht) 0 ml OD HS [facility] Last Admin: 10/25/16 21:29 Dose: 2.5 ml Metoclopramide HCl (Reglan) 10 mg IVP ACHS PRN PRN Reason: Nausea/Vomiting Last Admin: 10/26/16 12:49 Dose: 10 mg Ondansetron HCl (Zofran Inj) 4 mg IVP Q6H [facility] Last Admin: 10/26/16 13:54 Dose: Not Given Pantoprazole Sodium (Protonix Ec Tab) 40 mg PO DAILY [facility] Last Admin: 10/26/16 09:38 Dose: 40 mg Rosuvastatin Calcium (Crestor) 10 mg PO [facility] Last Admin: 10/25/16 21:26 Dose: 10 mg Sevelamer Carbonate (Renvela) 0.8 gm PO TIDCC [facility] Last Admin: 10/26/16 12:48 Dose: 0.8 gm Tramadol HCl (Ultram) 25 mg PO Q6H PRN PRN Reason: PAIN 1-10 Last Admin: 10/25/16 06:14 Dose: 25 mg Vitamin B Complex/Vit C/Folic Acid (Nephro-Alonzo) 1 tab PO DAILY [facility] Last Admin: 10/26/16 09:37 Dose: 1 tab - Labs Labs: 10/26/16 06:50 10/26/16 06:50 PT 10.9 SECONDS (9.7-12.2) 10/23/16 11:28 INR 1.0 10/23/16 11:28 APTT 30 SECONDS (21-34) 10/23/16 11:28 - Constitutional Appears: Non-toxic, Chronically Ill - Head Exam Head Exam: NORMOCEPHALIC - Eye Exam Eye Exam: PERRL. absent: Scleral icterus - ENT Exam ENT Exam: Mucous Membranes Dry, Normal External Ear Exam - Neck Exam Neck Exam: absent: Lymphadenopathy - Respiratory Exam Respiratory Exam: Decreased Breath Sounds, Rhonchi - Cardiovascular Exam Cardiovascular Exam: REGULAR RHYTHM, +S1, +S2 - GI/Abdominal Exam GI & Abdominal Exam: Distended, Soft. absent: Tenderness - Rectal Exam Rectal Exam: Deferred - Exam Exam: NORMAL INSPECTION - Extremities Exam Extremities Exam: absent: Calf Tenderness, Pedal Edema - Back Exam Back Exam: absent: CVA tenderness (L), CVA tenderness (R) - Neurological Exam Neurological Exam: Alert, Awake - Psychiatric Exam Psychiatric exam: Depressed Assessment and Plan (1) Cellulitis of foot Status: Acute (2) Foot ulcer Status: Acute (3) Peripheral vascular disease Status: Acute (4) NAVEEN (acute kidney injury) Status: Acute (5) Accelerated hypertension Status: Acute (6) Acute exacerbation of CHF (congestive heart failure) Status: Acute (7) CKD (chronic kidney disease) stage 3, GFR 30-59 ml/min Status: Chronic (8) DM2 (diabetes mellitus, type 2) Status: Chronic (9) Dyslipidemia Status: Chronic (10) IDDM (insulin dependent diabetes mellitus) Status: Chronic - Assessment and Plan (Free Text) Assessment: cont iv rx await mri report
--- NOTE | 2016-10-26 17:28 | RAD ---
HISTORY: SP dialysis catheter COMPARISON: Comparison made with prior study 10/21/2016 FINDINGS: LUNGS: Interval placement right IJ dialysis catheter with tip in the SVC/RA junction. No evidence of pneumothorax. . Central pulmonary vasculature is slightly increased . Mild right basilar atelectasis. Left lung base is dense in appearance likely due to large body habitus and underpenetration as well as cardiomegaly. Possibility of left lower lobe atelectasis and or infiltrate and left effusion not excluded. PLEURA: No apparent pneumothorax CARDIOVASCULAR: Heart remains enlarged OSSEOUS STRUCTURES: No significant abnormalities. VISUALIZED UPPER ABDOMEN: Normal. OTHER FINDINGS: None. IMPRESSION: Interval placement right IJ dialysis catheter with tip in the SVC. Cardiomegaly. No evidence of pneumothorax. Slight increased central pulmonary vasculature of. Mild right basilar atelectasis. Left lung base is dense in appearance likely due to large body habitus and underpenetration as well as cardiomegaly. Possibility of left lower lobe atelectasis and or infiltrate and left effusion not excluded.
[2016-10-26] MEDS: Cefepime IV 1 gm in Dextrose 1 GM/50 ML BAG IVPB SCH (17:37)
--- NOTE | 2016-10-26 21:41 | CARD ---
APPROVED REPORT EKG Measurement Heart [id number] <Conclusion> Normal sinus rhythm T wave abnormality, consider lateral ischemia Abnormal ECG
[2016-10-26] MEDS: (Lantus) Insulin Glargine, Recombinant SC SCH (22:05)
[2016-10-26] MEDS: Latanoprost 2.5 ml Opht Soln OD SCH (22:24)
[2016-10-27 08:13] LABS: BASO # 0.1 K/uL (0.0-0.2); BASO % 0.6 % (0.0-2.0); EOS # 0.2 K/uL (0.0-0.7); EOS % 1.4 % (0.0-4.0); HEMATOCRIT 26.8 % (34.0-47.0); LYMPH # 1.1 K/uL (1.0-4.3); LYMPH % 10.1 % (20.0-40.0); MEAN CELL VOLUME 85.8 fL (81.0-99.0); MEAN CORPUSCULAR HEMOGLOBIN 28.5 pg (27.0-31.0); MEAN CORPUSCULAR HGB CONC 33.2 g/dL (33.0-37.0); MEAN PLATELET VOLUME 9.8 fL (7.2-11.7); MONO % 9.2 % (0.0-10.0); RED CELL DISTRIBUTION WIDTH 12.9 % (11.5-14.5); WHITE BLOOD COUNT 10.5 K/uL (4.8-10.8)
[2016-10-27 08:26] LABS: POTASSIUM 4.2 mmol/L (3.6-5.2)
[2016-10-27 08:28] LABS: ALB/GLOB RATIO 1.1 (1.0-2.1); BILIRUBIN,TOTAL 0.4 mg/dL (0.2-1.3); TOTAL PROTEIN 5.9 g/dL (6.3-8.3)
[2016-10-27 08:29] LABS: CALCIUM 8.1 mg/dl (8.6-10.4)
[2016-10-27] MEDS: Sevelamer Carb 0.8 gm/Packet PO SCH ×3 (09:00→18:29)
[2016-10-27] MEDS: Pantoprazole 40 mg EC Tab PO SCH (09:30)
[2016-10-27] MEDS: Multivitamin Vitamin B Complex (Nephro-Vite) Tab PO SCH (09:30)
[2016-10-27] MEDS: Brimonidine 0.2% Opth Sol (5ml) OD SCH ×3 (09:31→18:24)
[2016-10-27] MEDS: Clotrimazole 1% Cream(30 gm) TOP SCH ×2 (10:24→18:24)
[2016-10-27] MEDS: Cilostazol 50 mg Tab UD PO SCH (10:24)
[2016-10-27] MEDS: (Novolog) Insulin Aspart, Recombinant 100 u/ml 10 ml vial SC SCH ×4 (10:34→22:05)
[2016-10-27] MEDS: Acetylcysteine 20% Inhal Soln (4ml) PO SCH ×2 (12:58→18:37)
[2016-10-27] MEDS: Tramadol 25 mg PO PRN ×2 (13:16→22:05)
--- NOTE | 2016-10-27 13:37 | CP.PCM.PN ---
<Nathan Ponce - Last Filed: 10/27/16 13:35> Subjective - Date & Time of Evaluation Date of Evaluation: 10/27/16 Time of Evaluation: 13:35 - Subjective Subjective: PGY-[address] Myrick, Patient seen and examined at bedside. No acute complaints this morning. She is s /p first dialysis yesterday. She denies any complaints with dialysis. Patient says she feels better after having it. She denies fever, chills, headache, dizziness, chest pain, palpitations, shortness of breath, bowel/bladder pain. Left foot dressings clean/dry/intact. Objective - Vital Signs/Intake and Output Vital Signs (last 24 hours): Temp Pulse Resp BP Pulse Ox 98.4 F 98 H 20 164/67 H 97 10/27/16 07:25 10/27/16 07:25 10/27/16 07:25 10/27/16 07:25 10/27/16 07:25 - Medications Medications: Current Medications Acetylcysteine (Acetylcysteine 20%) 6 ml PO BID [facility] Last Admin: 10/27/16 12:58 Dose: Not Given Alprazolam (Xanax) 0.25 mg PO Q8H PRN PRN Reason: Anxiety Stop: 10/30/16 07:20 Last Admin: 10/24/16 00:11 Dose: 0.25 mg Ascorbic Acid (Vitamin C 500 Mg Tab) 500 mg PO DAILY [facility] Last Admin: 10/27/16 09:30 Dose: 500 mg Brimonidine Tartrate (Alphagan 0.2% Opht) 0 ml OD TID [facility] Last Admin: 10/27/16 09:31 Dose: 1 applic Cilostazol (Pletal) 50 mg PO BID [facility] Last Admin: 10/27/16 10:24 Dose: 50 mg Clotrimazole (Lotrimin 1%) 0 gm TOP BID [facility] Last Admin: 10/27/16 10:24 Dose: 1 applic Ergocalciferol (Drisdol 50,000 Intl Units Cap) 1 cap PO Q7D [facility] Last Admin: 10/21/16 21:56 Dose: 1 cap Escitalopram Oxalate (Lexapro) 10 mg PO DAILY [facility] Last Admin: 10/27/16 09:30 Dose: 10 mg Heparin Sodium (Porcine) (Heparin) 5,000 units SC Q12 [facility] Last Admin: 10/27/16 09:30 Dose: 5,000 units Heparin Sodium (Porcine) (Heparin) 2,000 units IVP MWF [facility] Last Admin: 10/26/16 18:19 Dose: 2,000 units Hydralazine HCl (Apresoline) 50 mg PO BID [facility] Last Admin: 10/27/16 09:31 Dose: Not Given Sodium Chloride (Sodium Chloride 0.45%) 1,000 mls @ 80 mls/hr IV .[id number] [facility] Last Admin: 10/26/16 13:54 Dose: Not Given Cefepime HCl (Maxipime Iv 1 Gm Premix) 1 gm in 50 mls @ 100 mls/hr IVPB Q24H [facility] Last Admin: 10/26/16 17:37 Dose: Not Given Insulin Aspart (Novolog) 0 unit SC ACHS [facility] PRN Reason: Protocol Last Admin: 10/27/16 12:51 Dose: 8 unit Insulin Glargine (Lantus) 30 unit SC [facility] Last Admin: 10/26/16 22:05 Dose: Not Given Latanoprost (Xalatan Opht) 0 ml OD HS [facility] Last Admin: 10/26/16 22:24 Dose: 2.5 ml Megestrol Acetate (Megace) 400 mg PO DAILY [facility] Metoclopramide HCl (Reglan) 10 mg IVP ACHS PRN PRN Reason: Nausea/Vomiting Last Admin: 10/26/16 12:49 Dose: 10 mg Ondansetron HCl (Zofran Inj) 4 mg IVP Q6H [facility] Last Admin: 10/27/16 13:11 Dose: 4 mg Pantoprazole Sodium (Protonix Ec Tab) 40 mg PO DAILY [facility] Last Admin: 10/27/16 09:30 Dose: 40 mg Rosuvastatin Calcium (Crestor) 10 mg PO HS [facility] Last Admin: 10/26/16 23:20 Dose: Not Given Sevelamer Carbonate (Renvela) 0.8 gm PO TIDCC [facility] Last Admin: 10/27/16 13:00 Dose: 0.8 gm Tramadol HCl (Ultram) 25 mg PO Q6H PRN PRN Reason: PAIN 1-10 Last Admin: 10/27/16 13:16 Dose: 25 mg Vitamin B Complex/Vit C/Folic Acid (Nephro-Alonzo) 1 tab PO DAILY [facility] Last Admin: 10/27/16 09:30 Dose: 1 tab - Labs Labs: 10/27/16 08:03 10/27/16 08:03 PT 10.9 SECONDS (9.7-12.2) 10/23/16 11:28 INR 1.0 10/23/16 11:28 APTT 30 SECONDS (21-34) 10/23/16 11:28 - Constitutional Appears: No Acute Distress - Head Exam Head Exam: NORMAL INSPECTION, NORMOCEPHALIC - Eye Exam Eye Exam: EOMI Pupil Exam: PERRL - ENT Exam ENT Exam: Mucous Membranes Moist - Neck Exam Neck Exam: Full ROM - Respiratory Exam Respiratory Exam: Clear to Ausculation Bilateral, NORMAL BREATHING PATTERN. absent: Rales - Cardiovascular Exam Cardiovascular Exam: REGULAR RHYTHM, +S1, +S2 - GI/Abdominal Exam GI & Abdominal Exam: Soft, Normal Bowel Sounds. absent: Tenderness - Extremities Exam Extremities Exam: Normal Inspection Additional comments: Decreased pulses - DP, popliteal L foot wrapping clean/dry/intact - Back Exam Back Exam: NORMAL INSPECTION. absent: CVA tenderness (L), CVA tenderness (R) - Neurological Exam Neurological Exam: Alert, Awake, Oriented x3 - Psychiatric Exam Psychiatric exam: Normal Affect - Skin Skin Exam: Normal Color, Warm Assessment and Plan - Assessment and Plan (Free Text) Assessment: 71 yo female with PMHx of CKD stage III, CHF?, HTN, CAD, DM2, anxiety, anemia of chronic disease, chronic low back pain presented with ulcer on her left foot. Plan: CKD Stage IV S/p dialysis, following cath placement by Dr. Melendez -Cr improved from 4.9 yesterday, to 3.5 this AM -as per nephrology diuretics on hold -Acetylcysteine 6ml po bid -Ascorbic acid 500mg po daily -Renvela 0.8gm po TIDCC -Drisdol 50,000 1 cap po q7days -Nephrovite 1 tab po daily -as per Primary patient is on 1/2NS @ 80cc/hr -Renal u/s: medical renal disease, right kidney with nonobstructing 0.5cm stone -Nephrology: Dr Ambrose consulted Left lateral foot ulcer -likely Velazco stage 2 diabetic foot ulcer without infection/ischemia vs ulcer secondary to PAD -Left heel x-ray: limited vsiualization of anterior calcaneus. No acute displaced fracture. -Arterial PVR/SEG: Right negative; Left secerely decreased perfusion of the LLE noted at superficial, popliteal, and tibial A levels -LE Arterial scan: R possible occlusion of R posterior tibial A [50-75% stenosis of right mid popliteal A]; L possible occlusion of L proximal and sital posterior and proximal anterior tibial arteries; greater than 75% stenosis of the left distal superficial femoral and mid popliteal arteries; 50- 75% stenosis of L proximal poplitearl artery; recommend angiogram with endovascular repair -blood culture prelim gram negative kendy -SCDs c/i - Vanco and Zosyn were DC due to worsening renal function -Tramadol 25mg po q6 PRN pain -Tylenol with codeine 1 po q6 PRN pain -Venous dopplers negative b/l -Physical therapy -Wound care -Clotrimazole top bid -ID: Dr Wellington consulted -IR : Dr oRman consulted -Surgery: Dr Melendez consulted Peripheral Arterial Disease -Angiogram pending renal function improvement vs dialysis -Arterial PVR/SEG: Right negative; Left secerely decreased perfusion of the LLE noted at superficial, popliteal, and tibial A levels -LE Arterial scan: R possible occlusion of R posterior tibial A [50-75% stenosis of right mid popliteal A]; L possible occlusion of L proximal and sital posterior and proximal anterior tibial arteries; greater than 75% stenosis of the left distal superficial femoral and mid popliteal arteries; 50- 75% stenosis of L proximal poplitearl artery; recommend angiogram with endovascular repair - Discontinued Pletal 50mg po bid per Nephro reccs -IR: Dr. Roman consulted HTN f/u BP after d/c fluids -Hydralazine 50mg po bid -HCTZ 25mg po daily -Losartan 100mg po daily -Torsemide 100mg po daily Glaucoma -Alphagan 0.2% 0ml OD TID -Xalatan OD HS CAD -Hydralazine 50mg po bid -HCTZ 25mg po daily -Losartan 100mg po daily -Crestor 10mg po hs -Lipid panel TG 248 Cholesterol 217 LDL 113 HDL 39 DM2 -RISS high dose -Accucheck ACHS -Lantus 15U SC HS -HgbA1c 12.2 Anxiety and depression -Xanax 0.25mg po q8 prn -Lexapro 10mg po daily Anemia of chronic disease -H&H on admission is 10.2 and 30.9 - CBC (10/27/16): 8.9/26.8 -Monitor for acute changes -Dr. Ambrose nephrology consulted Chronic LBP -no acute complaints on admission -Monitor CHF -As per medical records patient has hx of CHF -Echo in 2016 in medical records is unremarkable with normal EF -Echo 10/23/16: small to moderate circumferential pericardial effusion. No evidence of tamponade. The LV systolic function is normal. Elevated LA pressure. RV systolic function is normal. There is a trace aortic regurgitation. Mild mitral regurgitation. There is mild to moderate tricuspid regurgitation. RV systolic pressure is estimated at ~44mmHg compatible with mild pulmonary HTN PPX -Heparin 5000U SC Q12 -Protonix 40mg po daily -Zofran 4mg IVP q6 [facility] -Heart healthy moderate consistent carb diet with fluid restriction -SCDs c/i -PT Discussed with Dr. Ramez Ponce, PGY1 <Benson Myrick Jr. - Last Filed: 11/01/16 18:51> Objective - Vital Signs/Intake and Output Vital Signs (last 24 hours): Temp Pulse Resp BP Pulse Ox 98.2 F 85 20 124/69 96 11/01/16 15:48 11/01/16 17:55 11/01/16 17:55 11/01/16 17:55 11/01/16 15:48 Intake and Output: 11/01/16 11/01/16 06:59 18:59 Intake Total 200 450 Balance 200 450 - Medications Medications: Current Medications Acetylcysteine (Acetylcysteine 20%) 6 ml PO BID [facility] Last Admin: 10/31/16 17:36 Dose: 6 ml Ascorbic Acid (Vitamin C 500 Mg Tab) 500 mg PO DAILY [facility] Last Admin: 11/01/16 13:08 Dose: 500 mg Brimonidine Tartrate (Alphagan 0.2% Opht) 0 ml OD TID [facility] Last Admin: 11/01/16 13:09 Dose: 1 applic Clotrimazole (Lotrimin 1%) 0 gm TOP QSHIFT [facility] Last Admin: 11/01/16 13:07 Dose: 1 applic Epoetin Maxwell (Procrit) 10,000 unit IV TTS [facility] Last Admin: 11/01/16 10:25 Dose: 10,000 unit Ergocalciferol (Drisdol 50,000 Intl Units Cap) 1 cap PO Q7D [facility] Last Admin: 10/28/16 21:16 Dose: 1 cap Escitalopram Oxalate (Lexapro) 10 mg PO DAILY [facility] Last Admin: 11/01/16 13:10 Dose: 10 mg Ferric Sodium Gluconate Complex (Ferrlecit) 125 mg IVPB TTS [facility] Stop: 11/07/16 16:01 Last Admin: 11/01/16 10:25 Dose: 125 mg Heparin Sodium (Porcine) (Heparin) 2,000 units IVP TuThSa [facility] Last Admin: 11/01/16 10:26 Dose: 2,000 units Hydralazine HCl (Apresoline) 50 mg PO BID [facility] Last Admin: 11/01/16 17:54 Dose: 50 mg Cefepime HCl (Maxipime Iv 1 Gm Premix) 1 gm in 50 mls @ 100 mls/hr IVPB Q24H [facility] Last Admin: 11/01/16 16:45 Dose: 100 mls/hr Insulin Glargine (Lantus) 30 unit SC HS [facility] Last Admin: 10/31/16 21:49 Dose: 30 units Insulin Human Regular (Novolin R) 0 unit SC ACHS [facility] PRN Reason: Protocol Last Admin: 11/01/16 17:53 Dose: 1 unit Latanoprost (Xalatan Opht) 0 ml OD HS [facility] Last Admin: 10/31/16 21:49 Dose: 2.5 ml Losartan Potassium (Cozaar) 50 mg PO Q24H [facility] Last Admin: 11/01/16 17:54 Dose: 50 mg Megestrol Acetate (Megace) 400 mg PO DAILY [facility] Last Admin: 11/01/16 13:08 Dose: 400 mg Metoclopramide HCl (Reglan) 10 mg IVP ACHS PRN PRN Reason: Nausea/Vomiting Last Admin: 10/28/16 11:08 Dose: 10 mg Ondansetron HCl (Zofran Inj) 4 mg IVP 0730,1130,1630,2200 [facility] Last Admin: 11/01/16 16:44 Dose: 4 mg Pantoprazole Sodium (Protonix Ec Tab) 40 mg PO DAILY [facility] Last Admin: 11/01/16 13:09 Dose: 40 mg Rosuvastatin Calcium (Crestor) 10 mg PO HS [facility] Last Admin: 10/31/16 21:49 Dose: 10 mg Sevelamer Carbonate (Renvela) 0.8 gm PO TIDCC [facility] Last Admin: 11/01/16 17:54 Dose: 0.8 gm Tramadol HCl (Ultram) 25 mg PO Q6H PRN PRN Reason: PAIN 1-10 Last Admin: 11/01/16 16:45 Dose: 25 mg Vitamin B Complex/Vit C/Folic Acid (Nephro-Alonzo) 1 tab PO DAILY [facility] Last Admin: 11/01/16 13:11 Dose: 1 tab - Labs Labs: 11/01/16 07:17 11/01/16 07:17 PT 11.3 SECONDS (9.7-12.2) 10/30/16 06:02 INR 1.0 10/30/16 06:02 APTT 28 SECONDS (21-34) 10/30/16 06:02 Attending/Attestation - Attestation I have personally seen and examined this patient.: Yes I have fully participated in the care of the patient.: Yes I have reviewed all pertinent clinical information, including history, physical exam and plan: Yes Notes (Text): 11/01/16 18:51 Agree with resident note and findings
[2016-10-27] MEDS: Megestrol Acetate 40 mg/ml Cup PO SCH (14:03)
--- NOTE | 2016-10-27 14:25 | PCM.IRP ---
History of Present Illness - History of Present Illness History of Present Illness: Pt with critical limb ischemia and SFA and tibial disease. Plan revascularization tomorrow with anesthesia. Pt has renal failure and has started hemodialysis. She will need to be dialyzed following the procedure to minimize contrast nephropathy. Objective - Vital Signs/Intake and Output Vital Signs (last 24 hours): Vital Signs - 24 hr 10/26/16 10/26/16 10/26/16 17:00 18:05 18:15 Temperature 98.1 F 98.1 F 98.1 F Pulse Rate 73 73 Pulse Rate [ 73 Right Brachial] Respiratory 20 20 20 Rate Blood Pressure 122/66 98/49 L Blood Pressure 86/61 L [Right Arm] O2 Sat by Pulse 90 L 98 Oximetry 10/26/16 10/26/16 10/26/16 18:30 18:45 19:00 Temperature Pulse Rate Pulse Rate [ Right Brachial] Respiratory Rate Blood Pressure Blood Pressure 103/48 L 114/53 L 133/60 [Right Arm] O2 Sat by Pulse Oximetry 10/26/16 10/26/16 10/26/16 19:04 19:15 19:45 Temperature Pulse Rate 73 Pulse Rate [ Right Brachial] Respiratory 20 Rate Blood Pressure 98/49 L Blood Pressure 149/64 144/56 L [Right Arm] O2 Sat by Pulse Oximetry 10/26/16 10/27/16 10/27/16 20:15 00:10 01:21 Temperature 98.2 F 99.1 F Pulse Rate 86 99 H Pulse Rate [ 90 Right Brachial] Respiratory 16 20 Rate Blood Pressure 152/69 H Blood Pressure 130/52 L [Right Arm] O2 Sat by Pulse 98 97 Oximetry 10/27/16 07:25 Temperature 98.4 F Pulse Rate 98 H Pulse Rate [ Right Brachial] Respiratory 20 Rate Blood Pressure 164/67 H Blood Pressure [Right Arm] O2 Sat by Pulse 97 Oximetry Intake and Output (last 12 hours): Intake & Output 10/26/16 10/27/16 10/27/16 18:59 06:59 18:59 Intake Total 1040 Balance 1040 Weight 158 lb 11.725 oz Intake: Intake, IV Amount 640 Right Forearm 640 Oral 400 Other: # Voids Urine, Voided 4 # Bowel Movements 0 - Medications Medications: Current Medications Acetylcysteine (Acetylcysteine 20%) 6 ml PO BID [facility] Last Admin: 10/27/16 12:58 Dose: Not Given Alprazolam (Xanax) 0.25 mg PO Q8H PRN PRN Reason: Anxiety Stop: 10/30/16 07:20 Last Admin: 10/24/16 00:11 Dose: 0.25 mg Ascorbic Acid (Vitamin C 500 Mg Tab) 500 mg PO DAILY [facility] Last Admin: 10/27/16 09:30 Dose: 500 mg Brimonidine Tartrate (Alphagan 0.2% Opht) 0 ml OD TID [facility] Last Admin: 10/27/16 14:02 Dose: Not Given Clotrimazole (Lotrimin 1%) 0 gm TOP BID [facility] Last Admin: 10/27/16 10:24 Dose: 1 applic Ergocalciferol (Drisdol 50,000 Intl Units Cap) 1 cap PO Q7D [facility] Last Admin: 10/21/16 21:56 Dose: 1 cap Escitalopram Oxalate (Lexapro) 10 mg PO DAILY [facility] Last Admin: 10/27/16 09:30 Dose: 10 mg Heparin Sodium (Porcine) (Heparin) 5,000 units SC Q12 [facility] Last Admin: 10/27/16 09:30 Dose: 5,000 units Heparin Sodium (Porcine) (Heparin) 2,000 units IVP MWF [facility] Last Admin: 10/27/16 14:17 Dose: 2,000 units Hydralazine HCl (Apresoline) 50 mg PO BID [facility] Last Admin: 10/27/16 09:31 Dose: Not Given Cefepime HCl (Maxipime Iv 1 Gm Premix) 1 gm in 50 mls @ 100 mls/hr IVPB Q24H [facility] Last Admin: 10/26/16 17:37 Dose: Not Given Insulin Aspart (Novolog) 0 unit SC ACHS [facility] PRN Reason: Protocol Last Admin: 10/27/16 12:51 Dose: 8 unit Insulin Glargine (Lantus) 30 unit SC HS [facility] Last Admin: 10/26/16 22:05 Dose: Not Given Latanoprost (Xalatan Opht) 0 ml OD HS [facility] Last Admin: 10/26/16 22:24 Dose: 2.5 ml Megestrol Acetate (Megace) 400 mg PO DAILY [facility] Last Admin: 10/27/16 14:03 Dose: Not Given Metoclopramide HCl (Reglan) 10 mg IVP ACHS PRN PRN Reason: Nausea/Vomiting Last Admin: 10/26/16 12:49 Dose: 10 mg Ondansetron HCl (Zofran Inj) 4 mg IVP Q6H [facility] Last Admin: 10/27/16 13:11 Dose: 4 mg Pantoprazole Sodium (Protonix Ec Tab) 40 mg PO DAILY [facility] Last Admin: 10/27/16 09:30 Dose: 40 mg Rosuvastatin Calcium (Crestor) 10 mg PO HS [facility] Last Admin: 10/26/16 23:20 Dose: Not Given Sevelamer Carbonate (Renvela) 0.8 gm PO TIDCC [facility] Last Admin: 10/27/16 13:00 Dose: 0.8 gm Tramadol HCl (Ultram) 25 mg PO Q6H PRN PRN Reason: PAIN 1-10 Last Admin: 10/27/16 13:16 Dose: 25 mg Vitamin B Complex/Vit C/Folic Acid (Nephro-Alonzo) 1 tab PO DAILY [facility] Last Admin: 10/27/16 09:30 Dose: 1 tab - Labs Labs (last 24 hours): Laboratory Results - last 24 hr 10/26/16 10/26/16 10/26/16 16:10 18:52 18:52 WBC RBC Hgb Hct MCV MCH MCHC RDW Plt Count MPV Neut % (Auto) Lymph % (Auto) [place] % (Auto) Eos % (Auto) Baso % (Auto) Neut # Lymph # [place] # Eos # Baso # Sodium Potassium Chloride Carbon Dioxide Anion Gap BUN Creatinine Est GFR ( Amer) Est GFR (Non-Af Amer) POC Glucose (mg/dL) 205 H Random Glucose Calcium Total Bilirubin AST ALT Alkaline Phosphatase Total Protein Albumin Globulin Albumin/Globulin Ratio Hep Bs Antigen Negative Hep Bs Antibody Negative Hep B Core IgM Ab Negative Hepatitis C Antibody Negative 10/26/16 10/27/16 10/27/16 21:52 06:54 08:03 WBC 10.5 RBC 3.12 L Hgb 8.9 L Hct 26.8 L MCV 85.8 MCH 28.5 MCHC 33.2 RDW 12.9 Plt Count 262 MPV 9.8 Neut % (Auto) 78.7 H Lymph % (Auto) 10.1 L [place] % (Auto) 9.2 Eos % (Auto) 1.4 Baso % (Auto) 0.6 Neut # 8.2 H Lymph # 1.1 [place] # 1.0 H Eos # 0.2 Baso # 0.1 Sodium Potassium Chloride Carbon Dioxide Anion Gap BUN Creatinine Est GFR ( Amer) Est GFR (Non-Af Amer) POC Glucose (mg/dL) 70 229 H Random Glucose Calcium Total Bilirubin AST ALT Alkaline Phosphatase Total Protein Albumin Globulin Albumin/Globulin Ratio Hep Bs Antigen Hep Bs Antibody Hep B Core IgM Ab Hepatitis C Antibody 10/27/16 10/27/16 08:03 11:53 WBC RBC Hgb Hct MCV MCH MCHC RDW Plt Count MPV Neut % (Auto) Lymph % (Auto) [place] % (Auto) Eos % (Auto) Baso % (Auto) Neut # Lymph # [place] # Eos # Baso # Sodium 130 L Potassium 4.2 Chloride 97 L Carbon Dioxide 23 Anion Gap 14 BUN 53 H Creatinine 3.5 H Est GFR ( Amer) 16 Est GFR (Non-Af Amer) 13 POC Glucose (mg/dL) 343 H Random Glucose 202 H Calcium 8.1 L Total Bilirubin 0.4 AST 21 ALT 21 Alkaline Phosphatase 78 Total Protein 5.9 L Albumin 3.1 L Globulin 2.8 Albumin/Globulin Ratio 1.1 Hep Bs Antigen Hep Bs Antibody Hep B Core IgM Ab Hepatitis C Antibody
--- NOTE | 2016-10-27 15:21 | MRI ---
MRI left ankle History: Ulcer. Evaluate for osteomyelitis. Comparison: X-ray dated 10/21/2016 Technique: Multi-echo multiplanar sequences were performed through left heel without the use of intravenous contrast. Findings: Mild diffuse soft tissue swelling within the circumferential subcutaneous soft tissues suggestive for a possible cellulitis. Soft tissue swelling along the plantar aspect of the calcaneus which may also represent a cellulitis. Reticulation and edema within the plantar musculature of the midfoot mid and hindfoot which may represent an underlying myositis. Plantar calcaneal spurring with a mild plantar fascitis. Degenerative changes with signal abnormality noted at the tibiotalar, subtalar, and calcaneonavicular joint spaces with joint space narrowing and osteophyte formation. Anterior extensor tendons are preserved. Mild tenosynovitis of the posterior tibial tendon sheath. Remainder of the medial flexor tendons are preserved. Trace tenosynovitis of the peroneal tendon sheath. Anterior and posterior tibiofibular ligaments are preserved. Anterior talofibular ligament is preserved. Moderate grade sprain of the posterior talofibular ligament. Achilles tendon preserved. 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 Small ankle joint effusion. Focal signal abnormality seen within the medial aspect of the talus near the insertion of the deltoid ligament suggestive for a mild bone bruising and or subchondral osseous injury. Clinical correlation. Focal signal abnormality seen within the anterior aspect of the talus near the talonavicular joint space which may represent some osteochondral change versus bone bruising versus subchondral osseous injury versus additional etiology. Additional focal signal abnormality seen within the lateral aspect of the middle cuneiform bone which may also represent some osteochondral change. Fraying with increased signal seen within the deep fibers of the deltoid ligament suggestive for a moderate grade sprain with some partial interstitial tearing. No evidence of gross signal abnormality within the visualized osseous structures to suggest for acute osteomyelitis. Impression: 1. No evidence of signal abnormality within the visualized osseous structures to suggest for an acute osteomyelitis. 2. Degenerative changes with signal abnormality noted at the tibiotalar, subtalar, and calcaneonavicular joint spaces with joint space narrowing and osteophyte formation. 3. Focal signal abnormality seen within the anterior aspect of the talus near the talonavicular joint space which may represent some osteochondral change versus bone bruising versus subchondral osseous injury versus additional etiology. Clinical correlation. 4. Additional focal signal abnormality seen within the lateral aspect of the middle cuneiform bone which may also represent some osteochondral change. 5. Mild diffuse soft tissue swelling most prominent at the plantar aspect of the calcaneus which may represent an underlying cellulitis. 6. Plantar calcaneal spurring with a mild plantar fascitis. 7. Moderate grade sprain of the posterior talofibular ligament. 8. 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 9. Focal signal abnormality seen within the medial aspect of the talus near the insertion of the deltoid ligament suggestive for a mild bone bruising and or subchondral osseous injury. Clinical correlation. 10. Fraying with increased signal seen within the deep fibers of the deltoid ligament suggestive for a moderate grade sprain with some partial interstitial tearing. Additional findings as above. These findings were preliminarily reported at 2:33 p.m. on 10/25/[address] Adair Bull from [facility].
[2016-10-27] MEDS: Cefepime IV 1 gm in Dextrose 1 GM/50 ML BAG IVPB SCH (18:24)
--- NOTE | 2016-10-27 20:10 | CP.PCM.PN ---
Subjective - Date & Time of Evaluation Date of Evaluation: 10/27/16 Time of Evaluation: 15:00 - Subjective Subjective: A ON CKD .. STARTED ON HD IN AM WILL GIVE HD AFTER ARTERIOGRAM FEELS BETTER Objective - Vital Signs/Intake and Output Vital Signs (last 24 hours): Temp Pulse Resp BP Pulse Ox 98.9 F 95 H 20 136/62 98 10/27/16 19:11 10/27/16 19:11 10/27/16 19:11 10/27/16 19:11 10/27/16 16:45 Intake and Output: 10/27/16 10/28/16 18:59 06:59 Intake Total 400 Balance 400 - Medications Medications: Current Medications Acetylcysteine (Acetylcysteine 20%) 6 ml PO BID [facility] Last Admin: 10/27/16 18:37 Dose: 6 ml Alprazolam (Xanax) 0.25 mg PO Q8H PRN PRN Reason: Anxiety Stop: 10/30/16 07:20 Last Admin: 10/24/16 00:11 Dose: 0.25 mg Ascorbic Acid (Vitamin C 500 Mg Tab) 500 mg PO DAILY [facility] Last Admin: 10/27/16 09:30 Dose: 500 mg Brimonidine Tartrate (Alphagan 0.2% Opht) 0 ml OD TID [facility] Last Admin: 10/27/16 18:24 Dose: 1 applic Clotrimazole (Lotrimin 1%) 0 gm TOP BID [facility] Last Admin: 10/27/16 18:24 Dose: 1 applic Ergocalciferol (Drisdol 50,000 Intl Units Cap) 1 cap PO Q7D [facility] Last Admin: 10/21/16 21:56 Dose: 1 cap Escitalopram Oxalate (Lexapro) 10 mg PO DAILY [facility] Last Admin: 10/27/16 09:30 Dose: 10 mg Heparin Sodium (Porcine) (Heparin) 5,000 units SC Q12 [facility] Last Admin: 10/27/16 09:30 Dose: 5,000 units Heparin Sodium (Porcine) (Heparin) 2,000 units IVP MWF [facility] Last Admin: 10/27/16 14:17 Dose: 2,000 units Hydralazine HCl (Apresoline) 50 mg PO BID [facility] Last Admin: 10/27/16 18:23 Dose: 50 mg Cefepime HCl (Maxipime Iv 1 Gm Premix) 1 gm in 50 mls @ 100 mls/hr IVPB Q24H [facility] Last Admin: 10/27/16 18:24 Dose: 100 mls/hr Insulin Aspart (Novolog) 0 unit SC ACHS [facility] PRN Reason: Protocol Last Admin: 10/27/16 18:40 Dose: Not Given Insulin Glargine (Lantus) 30 unit SC [facility] Last Admin: 10/26/16 22:05 Dose: Not Given Latanoprost (Xalatan Opht) 0 ml OD [facility] Last Admin: 10/26/16 22:24 Dose: 2.5 ml Megestrol Acetate (Megace) 400 mg PO DAILY [facility] Last Admin: 10/27/16 14:03 Dose: Not Given Metoclopramide HCl (Reglan) 10 mg IVP ACHS PRN PRN Reason: Nausea/Vomiting Last Admin: 10/26/16 12:49 Dose: 10 mg Ondansetron HCl (Zofran Inj) 4 mg IVP Q6H [facility] Last Admin: 10/27/16 18:23 Dose: 4 mg Pantoprazole Sodium (Protonix Ec Tab) 40 mg PO DAILY [facility] Last Admin: 10/27/16 09:30 Dose: 40 mg Rosuvastatin Calcium (Crestor) 10 mg PO [facility] Last Admin: 10/26/16 23:20 Dose: Not Given Sevelamer Carbonate (Renvela) 0.8 gm PO TIDCC [facility] Last Admin: 10/27/16 18:29 Dose: 0.8 gm Tramadol HCl (Ultram) 25 mg PO Q6H PRN PRN Reason: PAIN 1-10 Last Admin: 10/27/16 13:16 Dose: 25 mg Vitamin B Complex/Vit C/Folic Acid (Nephro-Alonzo) 1 tab PO DAILY [facility] Last Admin: 10/27/16 09:30 Dose: 1 tab - Labs Labs: 10/27/16 08:03 10/27/16 08:03 PT 10.9 SECONDS (9.7-12.2) 10/23/16 11:28 INR 1.0 10/23/16 11:28 APTT 30 SECONDS (21-34) 10/23/16 11:28 Assessment and Plan - Assessment and Plan (Free Text) Assessment: A ON CKD .. ON HD SEVERE PAD JAMES ON LEFT .. FOR ANGIOGRAM / PLAST IN AM C/O CURRENT CARE
[2016-10-27] MEDS: (Lantus) Insulin Glargine, Recombinant SC SCH (22:07)
[2016-10-27] MEDS: Latanoprost 2.5 ml Opht Soln OD SCH (22:08)
[2016-10-28 06:34] LABS: BASO # 0.1 K/uL (0.0-0.2); EOS # 0.2 K/uL (0.0-0.7); HEMATOCRIT 26.4 % (34.0-47.0); LYMPH # 1.5 K/uL (1.0-4.3); LYMPH % 14.8 % (20.0-40.0); MEAN CELL VOLUME 86.1 fL (81.0-99.0); MEAN CORPUSCULAR HEMOGLOBIN 28.6 pg (27.0-31.0); MEAN CORPUSCULAR HGB CONC 33.2 g/dL (33.0-37.0); MEAN PLATELET VOLUME 9.9 fL (7.2-11.7); MONO # 1.3 K/uL (0.0-0.8); MONO % 12.4 % (0.0-10.0); RED CELL DISTRIBUTION WIDTH 12.9 % (11.5-14.5); WHITE BLOOD COUNT 10.3 K/uL (4.8-10.8)
[2016-10-28 06:37] LABS: ALB/GLOB RATIO 1.1 (1.0-2.1); BILIRUBIN,TOTAL 0.4 mg/dL (0.2-1.3); TOTAL PROTEIN 6.2 g/dL (6.3-8.3)
[2016-10-28 06:38] LABS: CALCIUM 8.8 mg/dl (8.6-10.4)
[2016-10-28] MEDS ORDERED: Dextrose 50% SYRINGE Inj (50 ml) ONE (08:22)
[2016-10-28] MEDS ORDERED: Dextrose 50% SYRINGE Inj (50 ml) IV ONE (08:30)
[2016-10-28] MEDS ORDERED: Dextrose 5%/0.9% NS 1,000 ML IV SCH (08:45)
[2016-10-28] MEDS: Acetylcysteine 20% Inhal Soln (4ml) PO SCH ×2 (09:15→18:18)
[2016-10-28] MEDS: (Novolog) Insulin Aspart, Recombinant 100 u/ml 10 ml vial SC SCH ×4 (09:49→21:58)
[2016-10-28] MEDS: Sevelamer Carb 0.8 gm/Packet PO SCH ×3 (09:49→18:18)
[2016-10-28] MEDS: Megestrol Acetate 40 mg/ml Cup PO SCH (11:11)
[2016-10-28] MEDS: Multivitamin Vitamin B Complex (Nephro-Vite) Tab PO SCH (11:11)
[2016-10-28] MEDS: Pantoprazole 40 mg EC Tab PO SCH (11:12)
[2016-10-28] MEDS: Brimonidine 0.2% Opth Sol (5ml) OD SCH ×3 (11:19→18:18)
[2016-10-28] MEDS: Clotrimazole 1% Cream(30 gm) TOP SCH ×2 (11:20→18:19)
--- NOTE | 2016-10-28 11:31 | CP.PCM.PN ---
Subjective - Date & Time of Evaluation Date of Evaluation: 10/28/16 Time of Evaluation: 08:00 - Subjective Subjective: for revascularization rx in progress Objective - Vital Signs/Intake and Output Vital Signs (last 24 hours): Temp Pulse Resp BP Pulse Ox 98.3 F 108 H 20 171/70 H 98 10/28/16 05:36 10/28/16 05:36 10/28/16 05:36 10/28/16 05:36 10/28/16 05:36 Intake and Output: 10/28/16 10/28/16 06:59 18:59 Intake Total 0 Balance 0 - Medications Medications: Current Medications Acetylcysteine (Acetylcysteine 20%) 6 ml PO BID [facility] Last Admin: 10/28/16 09:15 Dose: Not Given Alprazolam (Xanax) 0.25 mg PO Q8H PRN PRN Reason: Anxiety Stop: 10/30/16 07:20 Last Admin: 10/24/16 00:11 Dose: 0.25 mg Ascorbic Acid (Vitamin C 500 Mg Tab) 500 mg PO DAILY [facility] Last Admin: 10/28/16 11:20 Dose: Not Given Brimonidine Tartrate (Alphagan 0.2% Opht) 0 ml OD TID [facility] Last Admin: 10/28/16 11:19 Dose: 1 applic Clotrimazole (Lotrimin 1%) 0 gm TOP BID [facility] Last Admin: 10/28/16 11:20 Dose: 1 applic Ergocalciferol (Drisdol 50,000 Intl Units Cap) 1 cap PO Q7D [facility] Last Admin: 10/21/16 21:56 Dose: 1 cap Escitalopram Oxalate (Lexapro) 10 mg PO DAILY [facility] Last Admin: 10/28/16 11:11 Dose: Not Given Heparin Sodium (Porcine) (Heparin) 5,000 units SC Q12 [facility] Last Admin: 10/28/16 11:12 Dose: Not Given Heparin Sodium (Porcine) (Heparin) 2,000 units IVP MWF [facility] Last Admin: 10/27/16 14:17 Dose: 2,000 units Hydralazine HCl (Apresoline) 50 mg PO BID [facility] Last Admin: 10/28/16 09:45 Dose: Not Given Cefepime HCl (Maxipime Iv 1 Gm Premix) 1 gm in 50 mls @ 100 mls/hr IVPB Q24H [facility] Last Admin: 10/27/16 18:24 Dose: 100 mls/hr Dextrose/Sodium Chloride (Dextrose 5%/0.9% Ns 1000 Ml) 1,000 mls @ 50 mls/hr IV .Q20H [facility] Last Admin: 10/28/16 08:39 Dose: 50 mls/hr Insulin Aspart (Novolog) 0 unit SC ACHS [facility] PRN Reason: Protocol Last Admin: 10/28/16 09:49 Dose: Not Given Insulin Glargine (Lantus) 30 unit SC [facility] Last Admin: 10/27/16 22:07 Dose: 30 units Latanoprost (Xalatan Opht) 0 ml OD HS [facility] Last Admin: 10/27/16 22:08 Dose: 2.5 ml Megestrol Acetate (Megace) 400 mg PO DAILY [facility] Last Admin: 10/28/16 11:11 Dose: Not Given Metoclopramide HCl (Reglan) 10 mg IVP ACHS PRN PRN Reason: Nausea/Vomiting Last Admin: 10/28/16 11:08 Dose: 10 mg Ondansetron HCl (Zofran Inj) 4 mg IVP Q6H [facility] Last Admin: 10/28/16 06:30 Dose: 4 mg Pantoprazole Sodium (Protonix Ec Tab) 40 mg PO DAILY [facility] Last Admin: 10/28/16 11:12 Dose: Not Given Rosuvastatin Calcium (Crestor) 10 mg PO HS [facility] Last Admin: 10/27/16 22:05 Dose: 10 mg Sevelamer Carbonate (Renvela) 0.8 gm PO TIDCC [facility] Last Admin: 10/28/16 09:49 Dose: Not Given Tramadol HCl (Ultram) 25 mg PO Q6H PRN PRN Reason: PAIN 1-10 Last Admin: 10/27/16 22:05 Dose: 25 mg Vitamin B Complex/Vit C/Folic Acid (Nephro-Alonzo) 1 tab PO DAILY [facility] Last Admin: 10/28/16 11:11 Dose: Not Given - Labs Labs: 10/28/16 06:18 10/28/16 06:18 PT 10.9 SECONDS (9.7-12.2) 10/23/16 11:28 INR 1.0 10/23/16 11:28 APTT 30 SECONDS (21-34) 10/23/16 11:28 - Constitutional Appears: Non-toxic, Chronically Ill - Head Exam Head Exam: NORMOCEPHALIC - Eye Exam Eye Exam: PERRL. absent: Scleral icterus - ENT Exam ENT Exam: Mucous Membranes Dry - Neck Exam Neck Exam: absent: Lymphadenopathy - Respiratory Exam Respiratory Exam: Decreased Breath Sounds - Cardiovascular Exam Cardiovascular Exam: REGULAR RHYTHM - GI/Abdominal Exam GI & Abdominal Exam: Distended, Soft - Rectal Exam Rectal Exam: Deferred Assessment and Plan (1) Cellulitis of foot Status: Acute (2) Foot ulcer Status: Acute (3) Peripheral vascular disease Status: Acute (4) NAVEEN (acute kidney injury) Status: Acute (5) Accelerated hypertension Status: Acute (6) Acute exacerbation of CHF (congestive heart failure) Status: Acute (7) CKD (chronic kidney disease) stage 3, GFR 30-59 ml/min Status: Chronic (8) DM2 (diabetes mellitus, type 2) Status: Chronic (9) Dyslipidemia Status: Chronic (10) IDDM (insulin dependent diabetes mellitus) Status: Chronic
[2016-10-28] MEDS ORDERED: Iodixanol 320 MG/ML 100 ML BOTTLE IV ONE (12:17)
[2016-10-28] MEDS ORDERED: Iodixanol 320 MG/ML 200 ML BOTTLE IV ONE (12:17)
[2016-10-28] MEDS ORDERED: Lidocaine 2% Inj (20ml) ONE (12:19)
--- NOTE | 2016-10-28 12:27 | PCM.IRPREO ---
Pre Procedure Note - History Proposed Procedure: Left lower extremity angiogram with possible atherectomy, HYPERBARIC TECHNOLOGIST, stent. Pre-Op Diagnosis: Critical limb ischemia, foot ulcer - Previous Medical/Surgical History Cardiac: Hypertension, ASHD/CAD Endocrine/Metabolic: Diabetes, Renal Disease - Pre Procedure Were any radiologic studies performed in the last 12 months: Yes List of radiologic studies performed: lower extremity arterial duplex Was medical management performed in the past 24 months: Yes List of medical management performed: wound debridement Clinical indication for the procedure: Non healing left foot ulcer Have risks and benefits been explained to the patient: Yes Risks and benefits been explained to the patient: Risk included embolism requiring embolectomy, hematoma, vascular injury, vascular occlusion that may result in limb loss. Have alternatives to surgery explained to the patient as applicable: Yes - Allergies Allergies: Allergies No Known Allergies Allergy (Verified 10/21/16 09:57) - Physical Exam Vital Signs: Vital Signs 10/28/16 10/28/16 05:36 11:30 Temperature 98.3 F Pulse Rate 108 H Respiratory 20 Rate Blood Pressure 171/70 H 194/73 H O2 Sat by Pulse 98 Oximetry Mental Status: Alert & Oriented x3 Neuro: WNL Heart: WNL Lungs: WNL - Specialist Directed Exam Abdomen: WNL Other Pertinent Findings: Left foot wound. B/L HYPERBARIC TECHNOLOGIST by doppler. AT +1 left foot. - Impression Impression: Pt with SFA and tibial disease and non healing foot ulcer. Plan left lower extremity via right femoral approach. Will plan atherectomy and possible stenting. Informed consent obtained. Pt. Evaluated Today:Candidate for Anesthesia & Procedure: ASA 3 Malampati 3 - Date & Time Date: 10/28/16 Time: 12:00
[2016-10-28] MEDS ORDERED: Midazolam 2 MG/2 ML VIAL ONE ×2 (12:41)
--- NOTE | 2016-10-28 12:47 | CP.PCM.PN ---
<Nathan Ponce - Last Filed: 10/28/16 15:29> Subjective - Date & Time of Evaluation Date of Evaluation: 10/28/16 Time of Evaluation: 12:45 - Subjective Subjective: PGY-[address] Myrick, Patient seen and examined at bedside. Nursing reports pt hypoglycemic this AM. Given one amp of D50, and placed on base maintenance D5. Pt NPO for revascularization with IR today. She will have dialysis to follow. Pt hypertensive this AM, and given IV hydralazine. Nursing reports pt not eating very much, and was started on Megace yesterday. Pt encouraged to drink supplements and eat as much as she can tolerate. She denies fever, chills, headache, dizziness, chest pain, palpitations, shortness of breath, bowel/ bladder pain. Objective - Vital Signs/Intake and Output Vital Signs (last 24 hours): Temp Pulse Resp BP Pulse Ox 98.3 F 108 H 20 194/73 H 98 10/28/16 05:36 10/28/16 05:36 10/28/16 05:36 10/28/16 11:30 10/28/16 05:36 Intake and Output: 10/28/16 10/28/16 06:59 18:59 Intake Total 0 Balance 0 - Medications Medications: Current Medications Acetylcysteine (Acetylcysteine 20%) 6 ml PO BID [facility] Last Admin: 10/28/16 09:15 Dose: Not Given Alprazolam (Xanax) 0.25 mg PO Q8H PRN PRN Reason: Anxiety Stop: 10/30/16 07:20 Last Admin: 10/24/16 00:11 Dose: 0.25 mg Ascorbic Acid (Vitamin C 500 Mg Tab) 500 mg PO DAILY [facility] Last Admin: 10/28/16 11:20 Dose: Not Given Brimonidine Tartrate (Alphagan 0.2% Opht) 0 ml OD TID [facility] Last Admin: 10/28/16 11:19 Dose: 1 applic Clotrimazole (Lotrimin 1%) 0 gm TOP BID [facility] Last Admin: 10/28/16 11:20 Dose: 1 applic Ergocalciferol (Drisdol 50,000 Intl Units Cap) 1 cap PO Q7D [facility] Last Admin: 10/21/16 21:56 Dose: 1 cap Escitalopram Oxalate (Lexapro) 10 mg PO DAILY [facility] Last Admin: 10/28/16 11:11 Dose: Not Given Heparin Sodium (Porcine) (Heparin) 5,000 units SC Q12 [facility] Last Admin: 10/28/16 11:12 Dose: Not Given Heparin Sodium (Porcine) (Heparin) 2,000 units IVP MWF [facility] Last Admin: 10/27/16 14:17 Dose: 2,000 units Hydralazine HCl (Apresoline) 50 mg PO BID [facility] Last Admin: 10/28/16 09:45 Dose: Not Given Cefepime HCl (Maxipime Iv 1 Gm Premix) 1 gm in 50 mls @ 100 mls/hr IVPB Q24H [facility] Last Admin: 10/27/16 18:24 Dose: 100 mls/hr Dextrose/Sodium Chloride (Dextrose 5%/0.9% Ns 1000 Ml) 1,000 mls @ 50 mls/hr IV .Q20H [facility] Last Admin: 10/28/16 08:39 Dose: 50 mls/hr Insulin Aspart (Novolog) 0 unit SC ACHS [facility] PRN Reason: Protocol Last Admin: 10/28/16 12:21 Dose: Not Given Insulin Glargine (Lantus) 30 unit SC [facility] Last Admin: 10/27/16 22:07 Dose: 30 units Latanoprost (Xalatan Opht) 0 ml OD HS [facility] Last Admin: 10/27/16 22:08 Dose: 2.5 ml Megestrol Acetate (Megace) 400 mg PO DAILY [facility] Last Admin: 10/28/16 11:11 Dose: Not Given Metoclopramide HCl (Reglan) 10 mg IVP ACHS PRN PRN Reason: Nausea/Vomiting Last Admin: 10/28/16 11:08 Dose: 10 mg Ondansetron HCl (Zofran Inj) 4 mg IVP Q6H [facility] Last Admin: 10/28/16 06:30 Dose: 4 mg Pantoprazole Sodium (Protonix Ec Tab) 40 mg PO DAILY [facility] Last Admin: 10/28/16 11:12 Dose: Not Given Rosuvastatin Calcium (Crestor) 10 mg PO HS [facility] Last Admin: 10/27/16 22:05 Dose: 10 mg Sevelamer Carbonate (Renvela) 0.8 gm PO TIDCC [facility] Last Admin: 10/28/16 12:21 Dose: Not Given Tramadol HCl (Ultram) 25 mg PO Q6H PRN PRN Reason: PAIN 1-10 Last Admin: 10/27/16 22:05 Dose: 25 mg Vitamin B Complex/Vit C/Folic Acid (Nephro-Alonzo) 1 tab PO DAILY [facility] Last Admin: 10/28/16 11:11 Dose: Not Given - Labs Labs: 10/28/16 06:18 10/28/16 06:18 PT 10.9 SECONDS (9.7-12.2) 10/23/16 11:28 INR 1.0 10/23/16 11:28 APTT 30 SECONDS (21-34) 10/23/16 11:28 - Additional Findings Additional findings: - Constitutional Appears: No Acute Distress - Head Exam Head Exam: NORMAL INSPECTION, NORMOCEPHALIC - Eye Exam Eye Exam: EOMI Pupil Exam: PERRL - ENT Exam ENT Exam: Mucous Membranes Moist - Neck Exam Neck Exam: Full ROM - Respiratory Exam Respiratory Exam: Clear to Ausculation Bilateral, NORMAL BREATHING PATTERN. absent: Rales - Cardiovascular Exam Cardiovascular Exam: REGULAR RHYTHM, +S1, +S2 - GI/Abdominal Exam GI & Abdominal Exam: Soft, Normal Bowel Sounds. absent: Tenderness - Extremities Exam Extremities Exam: Normal Inspection Additional comments: Decreased pulses - DP, popliteal L foot wrapping clean/dry/intact - Back Exam Back Exam: NORMAL INSPECTION. absent: CVA tenderness (L), CVA tenderness (R) - Neurological Exam Neurological Exam: Alert, Awake, Oriented x3 - Psychiatric Exam Psychiatric exam: Normal Affect - Skin Skin Exam: Normal Color, Warm Assessment and Plan - Assessment and Plan (Free Text) Assessment: 71 yo female with PMHx of CKD stage III, CHF?, HTN, CAD, DM2, anxiety, anemia of chronic disease, chronic low back pain presented with ulcer on her left foot. Plan: CKD Stage IV S/p dialysis, following cath placement by Dr. Melendez -Cr improved from 3.5 yesterday, to 2.5 this AM -as per nephrology diuretics on hold -Acetylcysteine 6ml po bid -Ascorbic acid 500mg po daily -Renvela 0.8gm po TIDCC -Drisdol 50,000 1 cap po q7days -Nephrovite 1 tab po daily -Renal u/s: medical renal disease, right kidney with nonobstructing 0.5cm stone -Nephrology: Dr Ambrose consulted Left lateral foot ulcer -likely Velazco stage 2 diabetic foot ulcer without infection/ischemia vs ulcer secondary to PAD -Left heel x-ray: limited visualization of anterior calcaneus. No acute displaced fracture. -Arterial PVR/SEG: Right negative; Left secerely decreased perfusion of the LLE noted at superficial, popliteal, and tibial A levels -LE Arterial scan: R possible occlusion of R posterior tibial A [50-75% stenosis of right mid popliteal A]; L possible occlusion of L proximal and sital posterior and proximal anterior tibial arteries; greater than 75% stenosis of the left distal superficial femoral and mid popliteal arteries; 50- 75% stenosis of L proximal poplitearl artery; recommend angiogram with endovascular repair - MRI (10/27/16): No evidence of signal abnormality noted at tibiotalar, subtalar , calcalneonavicular joint spaces, with jt space narrowing and osteophyte formation. Focal signal abnormalities seen on anterior aspect of taus, and lateral aspect of middle cuneiform which may represent osteochondral change. Plantar calcaneal spurring with mild plantar fascitis. 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 Focal signal abnormality on medial aspect of talus near insertion of deltoid ligamentsuggestive of bone brusing vs. subchondral osseous injury (see full report) -blood culture (10/26/16) no growth x 24 hours -wound culture (10/22/16): serratia marcescens, corynebacterium species - Cefepime 1gm Q24H IV (started 10/26/16, Day 3) -Tramadol 25mg po q6 PRN pain -Tylenol with codeine 1 po q6 PRN pain -Clotrimazole top bid -Venous dopplers negative b/l -Physical therapy -Wound care -ID: Dr Wellington consulted -IR : Dr Roman consulted -Surgery: Dr Melendez consulted Peripheral Arterial Disease -Angiogram pending renal function improvement vs dialysis -Arterial PVR/SEG: Right negative; Left secerely decreased perfusion of the LLE noted at superficial, popliteal, and tibial A levels -LE Arterial scan: R possible occlusion of R posterior tibial A [50-75% stenosis of right mid popliteal A]; L possible occlusion of L proximal and sital posterior and proximal anterior tibial arteries; greater than 75% stenosis of the left distal superficial femoral and mid popliteal arteries; 50- 75% stenosis of L proximal poplitearl artery; recommend angiogram with endovascular repair - Discontinued Pletal 50mg po bid per Nephro reccs -IR: Dr. Roman consulted HTN Elevated LORA -Hydralazine 50mg po bid -HCTZ 25mg po daily -Losartan 100mg po daily -Torsemide 100mg po daily Glaucoma -Alphagan 0.2% 0ml OD TID -Xalatan OD HS CAD -Hydralazine 50mg po bid -HCTZ 25mg po daily -Losartan 100mg po daily -Crestor 10mg po hs -Lipid panel TG 248 Cholesterol 217 LDL 113 HDL 39 DM2 -RISS high dose -Accucheck ACHS -Lantus 15U SC HS -HgbA1c 12.2 Anxiety and depression -Xanax 0.25mg po q8 prn -Lexapro 10mg po daily Anemia of chronic disease -H&H on admission is 10.2 and 30.9 - CBC (10/27/16): 8.8/26.4 -Monitor for acute changes -Dr. Ambrose nephrology consulted Chronic LBP -no acute complaints on admission -Monitor CHF -As per medical records patient has hx of CHF -Echo in 2016 in medical records is unremarkable with normal EF -Echo 10/23/16: small to moderate circumferential pericardial effusion. No evidence of tamponade. The LV systolic function is normal. Elevated LA pressure. RV systolic function is normal. There is a trace aortic regurgitation. Mild mitral regurgitation. There is mild to moderate tricuspid regurgitation. RV systolic pressure is estimated at ~44mmHg compatible with mild pulmonary HTN PPX -Heparin 5000U SC Q12 -Protonix 40mg po daily -Zofran 4mg IVP q6 [facility] -Heart healthy moderate consistent carb diet with fluid restriction -SCDs c/i -PT <Benson Myrick Jr. - Last Filed: 11/01/16 18:53> Objective - Vital Signs/Intake and Output Vital Signs (last 24 hours): Temp Pulse Resp BP Pulse Ox 98.2 F 85 20 124/69 96 11/01/16 15:48 11/01/16 17:55 11/01/16 17:55 11/01/16 17:55 11/01/16 15:48 Intake and Output: 11/01/16 11/01/16 06:59 18:59 Intake Total 200 450 Balance 200 450 - Medications Medications: Current Medications Acetylcysteine (Acetylcysteine 20%) 6 ml PO BID [facility] Last Admin: 10/31/16 17:36 Dose: 6 ml Ascorbic Acid (Vitamin C 500 Mg Tab) 500 mg PO DAILY [facility] Last Admin: 11/01/16 13:08 Dose: 500 mg Brimonidine Tartrate (Alphagan 0.2% Opht) 0 ml OD TID [facility] Last Admin: 11/01/16 13:09 Dose: 1 applic Clotrimazole (Lotrimin 1%) 0 gm TOP QSHIFT [facility] Last Admin: 11/01/16 13:07 Dose: 1 applic Epoetin Maxwell (Procrit) 10,000 unit IV TTS [facility] Last Admin: 11/01/16 10:25 Dose: 10,000 unit Ergocalciferol (Drisdol 50,000 Intl Units Cap) 1 cap PO Q7D [facility] Last Admin: 10/28/16 21:16 Dose: 1 cap Escitalopram Oxalate (Lexapro) 10 mg PO DAILY [facility] Last Admin: 11/01/16 13:10 Dose: 10 mg Ferric Sodium Gluconate Complex (Ferrlecit) 125 mg IVPB TTS [facility] Stop: 11/07/16 16:01 Last Admin: 11/01/16 10:25 Dose: 125 mg Heparin Sodium (Porcine) (Heparin) 2,000 units IVP TuThSa [facility] Last Admin: 11/01/16 10:26 Dose: 2,000 units Hydralazine HCl (Apresoline) 50 mg PO BID [facility] Last Admin: 11/01/16 17:54 Dose: 50 mg Cefepime HCl (Maxipime Iv 1 Gm Premix) 1 gm in 50 mls @ 100 mls/hr IVPB Q24H [facility] Last Admin: 11/01/16 16:45 Dose: 100 mls/hr Insulin Glargine (Lantus) 30 unit SC HS [facility] Last Admin: 10/31/16 21:49 Dose: 30 units Insulin Human Regular (Novolin R) 0 unit SC ACHS [facility] PRN Reason: Protocol Last Admin: 11/01/16 17:53 Dose: 1 unit Latanoprost (Xalatan Opht) 0 ml OD HS [facility] Last Admin: 10/31/16 21:49 Dose: 2.5 ml Losartan Potassium (Cozaar) 50 mg PO Q24H [facility] Last Admin: 11/01/16 17:54 Dose: 50 mg Megestrol Acetate (Megace) 400 mg PO DAILY [facility] Last Admin: 11/01/16 13:08 Dose: 400 mg Metoclopramide HCl (Reglan) 10 mg IVP ACHS PRN PRN Reason: Nausea/Vomiting Last Admin: 10/28/16 11:08 Dose: 10 mg Ondansetron HCl (Zofran Inj) 4 mg IVP 0730,1130,1630,2200 [facility] Last Admin: 11/01/16 16:44 Dose: 4 mg Pantoprazole Sodium (Protonix Ec Tab) 40 mg PO DAILY [facility] Last Admin: 11/01/16 13:09 Dose: 40 mg Polyethylene Glycol (Miralax) 17 gm PO DAILY [facility] Stop: 11/03/16 19:01 Rosuvastatin Calcium (Crestor) 10 mg PO HS [facility] Last Admin: 10/31/16 21:49 Dose: 10 mg Sevelamer Carbonate (Renvela) 0.8 gm PO TIDCC [facility] Last Admin: 11/01/16 17:54 Dose: 0.8 gm Tramadol HCl (Ultram) 25 mg PO Q6H PRN PRN Reason: PAIN 1-10 Last Admin: 11/01/16 16:45 Dose: 25 mg Vitamin B Complex/Vit C/Folic Acid (Nephro-Alonzo) 1 tab PO DAILY [facility] Last Admin: 11/01/16 13:11 Dose: 1 tab - Labs Labs: 11/01/16 07:17 11/01/16 07:17 PT 11.3 SECONDS (9.7-12.2) 10/30/16 06:02 INR 1.0 10/30/16 06:02 APTT 28 SECONDS (21-34) 10/30/16 06:02 Attending/Attestation - Attestation I have personally seen and examined this patient.: Yes I have fully participated in the care of the patient.: Yes I have reviewed all pertinent clinical information, including history, physical exam and plan: Yes Notes (Text): 11/01/16 18:53 Agree with resident note and findings
--- NOTE | 2016-10-28 13:19 | PCM.SURG1 ---
Surgeon's Initial Post Op Note - Surgeon's Notes Surgeon: Rogers Roman MD Double Reamer Operator: None Pre-Operative Diagnosis: Foot ulcer Operative Findings: Left lower extremity showed 80% stenosis of the popliteal artery and 95% stenosis of the tibioperoneal artery. There is occlusion of all three tibial vessels. Multiple collaterals present in the leg. Post-Operative Diagnosis: Foot ulcer Operation Performed: Left lower extremtiy angiogram with [employer] DEVELOPER of th popliteal artery and tibioperoneal artery. Specimen/Specimens Removed: None Estimated Blood Loss: EBL {In ML}: 10 Blood Products Given: N/A Drains Used: No Drains Post-Op Condition: Fair Date of Surgery/Procedure: 10/28/16 Time of Surgery/Procedure: 13:15
[2016-10-28] MEDS: Cefepime IV 1 gm in Dextrose 1 GM/50 ML BAG IVPB SCH (18:19)
[2016-10-28] MEDS: Tramadol 25 mg PO PRN (21:16)
[2016-10-28] MEDS: Latanoprost 2.5 ml Opht Soln OD SCH (21:16)
[2016-10-28] MEDS: Ergocalciferol 50,000 Intl Units Cap PO SCH (21:16)
[2016-10-28] MEDS ORDERED: (Lantus) Insulin Glargine, Recombinant SC ONE (23:00)
[2016-10-28] MEDS: (Lantus) Insulin Glargine, Recombinant SC SCH (23:00)
[2016-10-29 06:42] LABS: POTASSIUM 4.7 mmol/L (3.6-5.2)
[2016-10-29 06:44] LABS: ALB/GLOB RATIO 1.1 (1.0-2.1); BILIRUBIN,TOTAL 0.8 mg/dL (0.2-1.3); CALCIUM 8.4 mg/dl (8.6-10.4); TOTAL PROTEIN 6.4 g/dL (6.3-8.3)
[2016-10-29] MEDS: (Novolog) Insulin Aspart, Recombinant 100 u/ml 10 ml vial SC SCH ×4 (07:09→21:30)
[2016-10-29] MEDS ORDERED: (Novolog) Insulin Aspart, Recombinant 100 u/ml 10 ml vial SC ONE (07:17)
[2016-10-29 07:24] LABS: BASO # 0.1 K/uL (0.0-0.2); BASO % 0.7 % (0.0-2.0); EOS # 0.2 K/uL (0.0-0.7); EOS % 1.4 % (0.0-4.0); HEMATOCRIT 27.4 % (34.0-47.0); LYMPH % 5.7 % (20.0-40.0); MEAN CORPUSCULAR HEMOGLOBIN 28.8 pg (27.0-31.0); MEAN CORPUSCULAR HGB CONC 32.4 g/dL (33.0-37.0); MEAN PLATELET VOLUME 10.8 fL (7.2-11.7); MONO # 0.7 K/uL (0.0-0.8); MONO % 3.7 % (0.0-10.0); NRBC % 0.1 % (0.0-2.0); PLATELET COUNT 220 K/uL (130-400); RED CELL DISTRIBUTION WIDTH 12.8 % (11.5-14.5)
[2016-10-29 07:36] LABS: WHITE BLOOD COUNT 17.5 K/uL (4.8-10.8)
[2016-10-29 07:37] LABS: MEAN CELL VOLUME 89.1 fL (81.0-99.0)
[2016-10-29] MEDS ORDERED: Sodium Chloride 0.9% 1,000 ML IV SCH (07:45)
--- NOTE | 2016-10-29 07:53 | CP.PCM.PN ---
<Nathan Ponce - Last Filed: 10/29/16 16:16> Subjective - Date & Time of Evaluation Date of Evaluation: 10/29/16 Time of Evaluation: 07:50 - Subjective Subjective: PGY-[address] Myrick, Patient seen and examined at bedside. Nursing reports pt refused Lantus, and sugars now running high. Pt states she did not want to have low blood sugar again. Nursing notes she has not been eating very much over course due to nausea. Pt had revascularization with Dr. Roman yesterday, and is scheduled for OR with Dr. Melendez tomorrow for tunneled catheter placement. Pt encouraged to drink supplements and eat as much as she can tolerate. She denies fever, chills, headache, dizziness, chest pain, palpitations, shortness of breath, bowel/bladder pain. Objective - Vital Signs/Intake and Output Vital Signs (last 24 hours): Temp Pulse Resp BP Pulse Ox 98.9 F 107 H 20 170/76 H 95 10/29/16 04:00 10/29/16 04:00 10/29/16 04:00 10/29/16 04:00 10/29/16 04:00 Intake and Output: 10/29/16 10/29/16 06:59 18:59 Intake Total 270 Balance 270 - Medications Medications: Current Medications Acetylcysteine (Acetylcysteine 20%) 6 ml PO BID [facility] Last Admin: 10/28/16 18:18 Dose: 6 ml Alprazolam (Xanax) 0.25 mg PO Q8H PRN PRN Reason: Anxiety Stop: 10/30/16 07:20 Last Admin: 10/24/16 00:11 Dose: 0.25 mg Amlodipine Besylate (Norvasc) 5 mg PO ONCE ONE Stop: 10/29/16 08:01 Ascorbic Acid (Vitamin C 500 Mg Tab) 500 mg PO DAILY [facility] Last Admin: 10/28/16 11:20 Dose: Not Given Brimonidine Tartrate (Alphagan 0.2% Opht) 0 ml OD TID [facility] Last Admin: 10/28/16 18:18 Dose: 1 applic Clotrimazole (Lotrimin 1%) 0 gm TOP BID [facility] Last Admin: 10/28/16 18:19 Dose: 1 applic Ergocalciferol (Drisdol 50,000 Intl Units Cap) 1 cap PO Q7D [facility] Last Admin: 10/28/16 21:16 Dose: 1 cap Escitalopram Oxalate (Lexapro) 10 mg PO DAILY [facility] Last Admin: 10/28/16 11:11 Dose: Not Given Heparin Sodium (Porcine) (Heparin) 2,000 units IVP MWF [facility] Last Admin: 10/27/16 14:17 Dose: 2,000 units Hydralazine HCl (Apresoline) 50 mg PO BID [facility] Last Admin: 10/28/16 18:19 Dose: 50 mg Cefepime HCl (Maxipime Iv 1 Gm Premix) 1 gm in 50 mls @ 100 mls/hr IVPB Q24H [facility] Last Admin: 10/28/16 18:19 Dose: 100 mls/hr Sodium Chloride (Sodium Chloride 0.9%) 1,000 mls @ 75 mls/hr IV .[id number] [facility] Insulin Aspart (Novolog) 0 unit SC ACHS [facility] PRN Reason: Protocol Last Admin: 10/29/16 07:09 Dose: Not Given Insulin Glargine (Lantus) 30 unit SC [facility] Last Admin: 10/28/16 23:00 Dose: Not Given Latanoprost (Xalatan Opht) 0 ml OD HS [facility] Last Admin: 10/28/16 21:16 Dose: 2.5 ml Megestrol Acetate (Megace) 400 mg PO DAILY [facility] Last Admin: 10/28/16 11:11 Dose: Not Given Metoclopramide HCl (Reglan) 10 mg IVP ACHS PRN PRN Reason: Nausea/Vomiting Last Admin: 10/28/16 11:08 Dose: 10 mg Ondansetron HCl (Zofran Inj) 4 mg IVP Q6H [facility] Last Admin: 10/29/16 06:52 Dose: 4 mg Pantoprazole Sodium (Protonix Ec Tab) 40 mg PO DAILY [facility] Last Admin: 10/28/16 11:12 Dose: Not Given Rosuvastatin Calcium (Crestor) 10 mg PO HS [facility] Last Admin: 10/28/16 21:16 Dose: 10 mg Sevelamer Carbonate (Renvela) 0.8 gm PO TIDCC [facility] Last Admin: 10/28/16 18:18 Dose: 0.8 gm Tramadol HCl (Ultram) 25 mg PO Q6H PRN PRN Reason: PAIN 1-10 Last Admin: 10/28/16 21:16 Dose: 25 mg Vitamin B Complex/Vit C/Folic Acid (Nephro-Alonzo) 1 tab PO DAILY [facility] Last Admin: 10/28/16 11:11 Dose: Not Given - Labs Labs: 10/29/16 07:12 10/29/16 06:07 PT 10.9 SECONDS (9.7-12.2) 10/23/16 11:28 INR 1.0 10/23/16 11:28 APTT 30 SECONDS (21-34) 10/23/16 11:28 - Constitutional Appears: No Acute Distress, Chronically Ill - Head Exam Head Exam: ATRAUMATIC, NORMOCEPHALIC - Eye Exam Eye Exam: EOMI Pupil Exam: PERRL - ENT Exam ENT Exam: Mucous Membranes Moist - Cardiovascular Exam Cardiovascular Exam: Tachycardia, +S1, +S2 - GI/Abdominal Exam GI & Abdominal Exam: Soft, Normal Bowel Sounds - Neurological Exam Neurological Exam: Alert, Awake, Oriented x3 - Psychiatric Exam Psychiatric exam: Normal Affect - Skin Skin Exam: Normal Color, Warm Assessment and Plan - Assessment and Plan (Free Text) Plan: CKD Stage IV S/p dialysis, following cath placement by Dr. Melendez -Cr improved from 2.5 yesterday, to 2.3 this AM -as per nephrology diuretics on hold -Acetylcysteine 6ml po bid -Ascorbic acid 500mg po daily -Renvela 0.8gm po TIDCC -Drisdol 50,000 1 cap po q7days -Nephrovite 1 tab po daily -Renal u/s: medical renal disease, right kidney with nonobstructing 0.5cm stone -Nephrology: Dr Ambrose consulted Left lateral foot ulcer -likely Velazco stage 2 diabetic foot ulcer without infection/ischemia vs ulcer secondary to PAD -Left heel x-ray: limited visualization of anterior calcaneus. No acute displaced fracture. -Arterial PVR/SEG: Right negative; Left secerely decreased perfusion of the LLE noted at superficial, popliteal, and tibial A levels -LE Arterial scan: R possible occlusion of R posterior tibial A [50-75% stenosis of right mid popliteal A]; L possible occlusion of L proximal and sital posterior and proximal anterior tibial arteries; greater than 75% stenosis of the left distal superficial femoral and mid popliteal arteries; 50- 75% stenosis of L proximal poplitearl artery; recommend angiogram with endovascular repair - MRI (10/27/16): No evidence of signal abnormality noted at tibiotalar, subtalar , calcalneonavicular joint spaces, with jt space narrowing and osteophyte formation. Focal signal abnormalities seen on anterior aspect of taus, and lateral aspect of middle cuneiform which may represent osteochondral change. Plantar calcaneal spurring with mild plantar fascitis. 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 Focal signal abnormality on medial aspect of talus near insertion of deltoid ligamentsuggestive of bone brusing vs. subchondral osseous injury (see full report) -blood culture (10/26/16) no growth x 24 hours -wound culture (10/22/16): serratia marcescens, corynebacterium species - Cefepime 1gm Q24H IV (started 10/26/16, Day 4) -Tramadol 25mg po q6 PRN pain -Tylenol with codeine 1 po q6 PRN pain -Clotrimazole top bid -Venous dopplers negative b/l -Physical therapy -Wound care -ID: Dr Wellington consulted -IR : Dr Roman consulted -Surgery: Dr Melendez consulted Peripheral Arterial Disease -Angiogram pending renal function improvement vs dialysis -Arterial PVR/SEG: Right negative; Left secerely decreased perfusion of the LLE noted at superficial, popliteal, and tibial A levels -LE Arterial scan: R possible occlusion of R posterior tibial A [50-75% stenosis of right mid popliteal A]; L possible occlusion of L proximal and sital posterior and proximal anterior tibial arteries; greater than 75% stenosis of the left distal superficial femoral and mid popliteal arteries; 50- 75% stenosis of L proximal poplitearl artery; recommend angiogram with endovascular repair - Discontinued Pletal 50mg po bid per Nephro reccs -IR: Dr. Roman consulted HTN Elevated - Hydralazine 50mg po bid - Restart home STEVEN: Losartan 50mg PO Daily - HCTZ 25mg po daily Glaucoma -Alphagan 0.2% 0ml OD TID -Xalatan OD HS CAD -Hydralazine 50mg po bid -HCTZ 25mg po daily -restart home STEVEN: Losartan 50mg PO Daily -Crestor 10mg po hs -Lipid panel TG 248 Cholesterol 217 LDL 113 HDL 39 DM2 -RISS high dose, but low dose tomorrow as NPO for OR -Accucheck ACHS -Lantus upped to 30U SC HS, but giving half dose as NPO for OR tomorrow -HgbA1c 12.2 Anxiety and depression -Xanax 0.25mg po q8 prn -Lexapro 10mg po daily Anemia of chronic disease -H&H on admission is 10.2 and 30.9 - CBC (10/29/16): 8.9/27.4 -Monitor for acute changes -Dr. Ambrose nephrology consulted Chronic LBP -no acute complaints on admission -Monitor CHF -As per medical records patient has hx of CHF -Echo in 2016 in medical records is unremarkable with normal EF -Echo 10/23/16: small to moderate circumferential pericardial effusion. No evidence of tamponade. The LV systolic function is normal. Elevated LA pressure. RV systolic function is normal. There is a trace aortic regurgitation. Mild mitral regurgitation. There is mild to moderate tricuspid regurgitation. RV systolic pressure is estimated at ~44mmHg compatible with mild pulmonary HTN PPX -Heparin 5000U SC Q12 -Protonix 40mg po daily -Zofran 4mg IVP (1/2 hr before meals, once at bed time) -Heart healthy moderate consistent carb diet with fluid restriction -SCDs c/i -PT <Benson Myrick Jr. - Last Filed: 11/01/16 18:55> Objective - Vital Signs/Intake and Output Vital Signs (last 24 hours): Temp Pulse Resp BP Pulse Ox 98.2 F 85 20 124/69 96 11/01/16 15:48 11/01/16 17:55 11/01/16 17:55 11/01/16 17:55 11/01/16 15:48 Intake and Output: 11/01/16 11/01/16 06:59 18:59 Intake Total 200 450 Balance 200 450 - Medications Medications: Current Medications Acetylcysteine (Acetylcysteine 20%) 6 ml PO BID [facility] Last Admin: 10/31/16 17:36 Dose: 6 ml Ascorbic Acid (Vitamin C 500 Mg Tab) 500 mg PO DAILY [facility] Last Admin: 11/01/16 13:08 Dose: 500 mg Brimonidine Tartrate (Alphagan 0.2% Opht) 0 ml OD TID [facility] Last Admin: 11/01/16 13:09 Dose: 1 applic Clotrimazole (Lotrimin 1%) 0 gm TOP QSHIFT [facility] Last Admin: 11/01/16 13:07 Dose: 1 applic Epoetin Maxwell (Procrit) 10,000 unit IV TTS [facility] Last Admin: 11/01/16 10:25 Dose: 10,000 unit Ergocalciferol (Drisdol 50,000 Intl Units Cap) 1 cap PO Q7D [facility] Last Admin: 10/28/16 21:16 Dose: 1 cap Escitalopram Oxalate (Lexapro) 10 mg PO DAILY [facility] Last Admin: 11/01/16 13:10 Dose: 10 mg Ferric Sodium Gluconate Complex (Ferrlecit) 125 mg IVPB [facility] Stop: 11/07/16 16:01 Last Admin: 11/01/16 10:25 Dose: 125 mg Heparin Sodium (Porcine) (Heparin) 2,000 units IVP TuThSa [facility] Last Admin: 11/01/16 10:26 Dose: 2,000 units Hydralazine HCl (Apresoline) 50 mg PO BID [facility] Last Admin: 11/01/16 17:54 Dose: 50 mg Cefepime HCl (Maxipime Iv 1 Gm Premix) 1 gm in 50 mls @ 100 mls/hr IVPB Q24H [facility] Last Admin: 11/01/16 16:45 Dose: 100 mls/hr Insulin Glargine (Lantus) 30 unit SC HS [facility] Last Admin: 10/31/16 21:49 Dose: 30 units Insulin Human Regular (Novolin R) 0 unit SC ACHS [facility] PRN Reason: Protocol Last Admin: 11/01/16 17:53 Dose: 1 unit Latanoprost (Xalatan Opht) 0 ml OD HS [facility] Last Admin: 10/31/16 21:49 Dose: 2.5 ml Losartan Potassium (Cozaar) 50 mg PO Q24H [facility] Last Admin: 11/01/16 17:54 Dose: 50 mg Megestrol Acetate (Megace) 400 mg PO DAILY [facility] Last Admin: 11/01/16 13:08 Dose: 400 mg Metoclopramide HCl (Reglan) 10 mg IVP ACHS PRN PRN Reason: Nausea/Vomiting Last Admin: 10/28/16 11:08 Dose: 10 mg Ondansetron HCl (Zofran Inj) 4 mg IVP 0730,1130,1630,2200 [facility] Last Admin: 11/01/16 16:44 Dose: 4 mg Pantoprazole Sodium (Protonix Ec Tab) 40 mg PO DAILY [facility] Last Admin: 11/01/16 13:09 Dose: 40 mg Polyethylene Glycol (Miralax) 17 gm PO DAILY [facility] Stop: 11/03/16 19:01 Rosuvastatin Calcium (Crestor) 10 mg PO HS [facility] Last Admin: 10/31/16 21:49 Dose: 10 mg Sevelamer Carbonate (Renvela) 0.8 gm PO TIDCC [facility] Last Admin: 11/01/16 17:54 Dose: 0.8 gm Tramadol HCl (Ultram) 25 mg PO Q6H PRN PRN Reason: PAIN 1-10 Last Admin: 11/01/16 16:45 Dose: 25 mg Vitamin B Complex/Vit C/Folic Acid (Nephro-Alonzo) 1 tab PO DAILY [facility] Last Admin: 11/01/16 13:11 Dose: 1 tab - Labs Labs: 11/01/16 07:17 11/01/16 07:17 PT 11.3 SECONDS (9.7-12.2) 10/30/16 06:02 INR 1.0 10/30/16 06:02 APTT 28 SECONDS (21-34) 10/30/16 06:02 Attending/Attestation - Attestation I have personally seen and examined this patient.: Yes I have fully participated in the care of the patient.: Yes I have reviewed all pertinent clinical information, including history, physical exam and plan: Yes Notes (Text): 11/01/16 18:55 Agree with resident note and findings
[2016-10-29] MEDS: Sevelamer Carb 0.8 gm/Packet PO SCH ×4 (08:33→18:40)
[2016-10-29 09:49] LABS: BASOPHIL 1 % (0-2); EOSINOPHIL 1 % (0-4); NEUTROPHIL 87 % (50-75); TOTAL CELLS COUNTED 100
[2016-10-29] MEDS: Brimonidine 0.2% Opth Sol (5ml) OD SCH ×3 (10:41→18:36)
[2016-10-29] MEDS: Clotrimazole 1% Cream(30 gm) TOP SCH ×2 (10:41→18:14)
[2016-10-29] MEDS: Pantoprazole 40 mg EC Tab PO SCH (10:41)
[2016-10-29] MEDS: Multivitamin Vitamin B Complex (Nephro-Vite) Tab PO SCH (10:41)
[2016-10-29] MEDS: Megestrol Acetate 40 mg/ml Cup PO SCH (10:41)
[2016-10-29] MEDS: Acetylcysteine 20% Inhal Soln (4ml) PO SCH ×2 (10:45→18:39)
--- NOTE | 2016-10-29 13:24 | SPECPROC ---
PROCEDURE: Date of procedure: 10/28/2016 Procedure: 1. Left lower extremity angiogram, CPT 2. balloon angioplasty left popliteal, CPT 18694 Medications: 8cc 1 percent Lidocaine, IV sedation administered by the anesthesiologist along with physiologic monitoring. 4000 heparain IVP intra procedural. HISTORY: Critical limb ischemia, nonhealing foot wound. TECHNIQUE: Following informed consent to procedure time-out, the patient was placed supine on the interventional table and right groin prepped and draped in the usual sterile fashion. The right common femoral artery was accessed with micropuncture technique and a guidewire was advanced under fluoroscopic guidance into the abdominal aorta. This was exchanged over a guidewire for a 5 Cameroonian vascular sheath. A flush catheter was advanced through the sheath and advanced into the contralateral left external iliac artery and a left lower extremity angiogram performed. Findings: The common femoral artery and profunda femoral artery normal. Severe, 90%, stenosis of the popliteal artery and tibioperoneal artery. Left runoff shows occlusion of the anterior tibial artery, peroneal artery, posterior tibial artery. The anterior tibial artery is patent proximally then occludes. Multiple small collateral vessels are present. The patient was given 4000 units of heparin intravascularly. A 6 Cameroonian vascular sheath was advanced over a wire and positioned within the contralateral external iliac artery. A 5 Cam[place]onian angled glide catheter was advanced through the sheath and a guidewire was successfully advanced across the stenotic popliteal artery segment. . The occluded segment, confirming intravascular position of the catheter. Percutaneous balloon angioplasty was performed of the left popliteal artery using a 4 millimeter x 60 millimeter balloon. Post prolonged balloon angioplasty repeat left lower extremity angiogram was performed which was significant improvement in the popliteal artery. The outflow was unchanged. . The vascular sheath removed and hemostasis achieved with a 6 Cam[place]onian Angio-Seal followed by manual compression. There were no immediate complication. IMPRESSION: 1. Multifocal moderate to severe stenosis the popliteal artery measuring up to 90 percent. 2. Successful revascularization of the left popliteal artery with balloon angioplasty. 3. Occlusion of the anterior tibial artery, peroneal artery and posterior tibial artery. Flow in the leg is via multiple collateral vessels. 4. Patient will be scheduled for repeat arterial duplex in 1 month with planned re- intervention and repair of posterior tibial artery to promote wound healing.
[2016-10-29] MEDS ORDERED: (Novolog) Insulin Aspart, Recombinant 100 u/ml 10 ml vial SC STA (14:47)
[2016-10-29] MEDS: Cefepime IV 1 gm in Dextrose 1 GM/50 ML BAG IVPB SCH (16:54)
[2016-10-29] MEDS: Latanoprost 2.5 ml Opht Soln OD SCH (21:23)
[2016-10-29] MEDS ORDERED: (Lantus) Insulin Glargine, Recombinant SC ONE (22:00)
--- NOTE | 2016-10-30 05:02 | CP.PCM.PN ---
Subjective - Date & Time of Evaluation Date of Evaluation: 10/29/16 Time of Evaluation: 15:00 - Subjective Subjective: SEEN ON RENAL F/U SEEN ALONG WITH THE RESIDENT S/P L LEG ANGIOGRAM AND ANGIOPLASTY RECIEVED HD AFTER THE ANGIOPLASTY FEELS IMPROVED BUMP HD FROM TODAY TO AM Objective - Vital Signs/Intake and Output Vital Signs (last 24 hours): Temp Pulse Resp BP Pulse Ox 99.5 F 86 20 131/52 L 94 L 10/29/16 23:10 10/30/16 00:45 10/29/16 23:10 10/29/16 23:10 10/29/16 23:10 Intake and Output: 10/29/16 10/30/16 18:59 06:59 Intake Total 825 400 Output Total 0 Balance 825 400 - Medications Medications: Current Medications Acetylcysteine (Acetylcysteine 20%) 6 ml PO BID [facility] Last Admin: 10/29/16 18:39 Dose: 6 ml Alprazolam (Xanax) 0.25 mg PO Q8H PRN PRN Reason: Anxiety Stop: 10/30/16 07:20 Last Admin: 10/24/16 00:11 Dose: 0.25 mg Ascorbic Acid (Vitamin C 500 Mg Tab) 500 mg PO DAILY [facility] Last Admin: 10/29/16 10:41 Dose: 500 mg Brimonidine Tartrate (Alphagan 0.2% Opht) 0 ml OD TID [facility] Last Admin: 10/29/16 18:36 Dose: 1 applic Clotrimazole (Lotrimin 1%) 0 gm TOP BID [facility] Last Admin: 10/29/16 18:14 Dose: 1 applic Ergocalciferol (Drisdol 50,000 Intl Units Cap) 1 cap PO Q7D [facility] Last Admin: 10/28/16 21:16 Dose: 1 cap Escitalopram Oxalate (Lexapro) 10 mg PO DAILY [facility] Last Admin: 10/29/16 10:47 Dose: 10 mg Heparin Sodium (Porcine) (Heparin) 2,000 units IVP MWF [facility] Last Admin: 10/29/16 18:40 Dose: Not Given Hydralazine HCl (Apresoline) 50 mg PO BID [facility] Last Admin: 10/29/16 18:14 Dose: 50 mg Cefepime HCl (Maxipime Iv 1 Gm Premix) 1 gm in 50 mls @ 100 mls/hr IVPB Q24H [facility] Last Admin: 10/29/16 16:54 Dose: 100 mls/hr Insulin Glargine (Lantus) 30 unit SC [facility] Last Admin: 10/28/16 23:00 Dose: Not Given Insulin Human Regular (Novolin R) 0 unit SC ACHS [facility] PRN Reason: Protocol Stop: 10/31/16 07:31 Latanoprost (Xalatan Opht) 0 ml OD HS [facility] Last Admin: 10/29/16 21:23 Dose: 2.5 ml Losartan Potassium (Cozaar) 50 mg PO Q24H [facility] Last Admin: 10/29/16 18:13 Dose: 50 mg Megestrol Acetate (Megace) 400 mg PO DAILY [facility] Last Admin: 10/29/16 10:41 Dose: 400 mg Metoclopramide HCl (Reglan) 10 mg IVP ACHS PRN PRN Reason: Nausea/Vomiting Last Admin: 10/28/16 11:08 Dose: 10 mg Ondansetron HCl (Zofran Inj) 4 mg IVP 0730,1130,1630,2200 [facility] Last Admin: 10/29/16 21:30 Dose: 4 mg Pantoprazole Sodium (Protonix Ec Tab) 40 mg PO DAILY [facility] Last Admin: 10/29/16 10:41 Dose: 40 mg Rosuvastatin Calcium (Crestor) 10 mg PO HS [facility] Last Admin: 10/29/16 21:23 Dose: 10 mg Sevelamer Carbonate (Renvela) 0.8 gm PO TIDCC [facility] Last Admin: 10/29/16 18:40 Dose: 0.8 gm Tramadol HCl (Ultram) 25 mg PO Q6H PRN PRN Reason: PAIN 1-10 Last Admin: 10/28/16 21:16 Dose: 25 mg Vitamin B Complex/Vit C/Folic Acid (Nephro-Alonzo) 1 tab PO DAILY [facility] Last Admin: 10/29/16 10:41 Dose: 1 tab - Labs Labs: 10/29/16 07:12 10/29/16 06:07 PT 10.9 SECONDS (9.7-12.2) 10/23/16 11:28 INR 1.0 10/23/16 11:28 APTT 30 SECONDS (21-34) 10/23/16 11:28 Assessment and Plan - Assessment and Plan (Free Text) Assessment: A ON CKD .. HD IN AM [facility] C/O CURRENT CARE D/C IVF
[2016-10-30 06:13] LABS: BASO # 0.1 K/uL (0.0-0.2); BASO % 0.7 % (0.0-2.0); EOS # 0.3 K/uL (0.0-0.7); EOS % 1.7 % (0.0-4.0); HEMATOCRIT 26.5 % (34.0-47.0); LYMPH # 1.9 K/uL (1.0-4.3); LYMPH % 9.8 % (20.0-40.0); MEAN CORPUSCULAR HEMOGLOBIN 28.6 pg (27.0-31.0); MEAN CORPUSCULAR HGB CONC 32.8 g/dL (33.0-37.0); MONO # 1.7 K/uL (0.0-0.8); MONO % 8.7 % (0.0-10.0); NRBC % 0.1 % (0.0-2.0); PLATELET COUNT 107 K/uL (130-400); WHITE BLOOD COUNT 19.1 K/uL (4.8-10.8)
[2016-10-30 06:30] LABS: POTASSIUM 4.4 mmol/L (3.6-5.2)
[2016-10-30 06:32] LABS: ALB/GLOB RATIO 1.2 (1.0-2.1); BILIRUBIN,TOTAL 0.6 mg/dL (0.2-1.3); TOTAL PROTEIN 5.8 g/dL (6.3-8.3)
[2016-10-30 06:33] LABS: CALCIUM 8.5 mg/dl (8.6-10.4); MAGNESIUM 2.2 mg/dL (1.6-2.3); PHOSPHOROUS 3.4 mg/dL (2.5-4.5)
--- NOTE | 2016-10-30 07:06 | CP.PCM.PN ---
<Nathan Ponce - Last Filed: 10/30/16 18:18> Subjective - Date & Time of Evaluation Date of Evaluation: 10/30/16 Time of Evaluation: 07:03 - Subjective Subjective: PGY-[address] Myrick, Patient seen and examined at bedside. Nursing reports no acute events overnight. Pt is NPO for OR with Dr. Melendez today for tunneled catheter placement, with dialysis to follow. She denies fever, chills, headache, dizziness, chest pain, palpitations, shortness of breath, bowel/bladder pain. Objective - Vital Signs/Intake and Output Vital Signs (last 24 hours): Temp Pulse Resp BP Pulse Ox 99.5 F 86 20 131/52 L 94 L 10/29/16 23:10 10/30/16 00:45 10/29/16 23:10 10/29/16 23:10 10/29/16 23:10 Intake and Output: 10/30/16 10/30/16 06:59 18:59 Intake Total 400 Output Total 0 Balance 400 - Medications Medications: Current Medications Acetylcysteine (Acetylcysteine 20%) 6 ml PO BID ON LICENSE OF [facility] Last Admin: 10/29/16 18:39 Dose: 6 ml Alprazolam (Xanax) 0.25 mg PO Q8H PRN PRN Reason: Anxiety Stop: 10/30/16 07:20 Last Admin: 10/24/16 00:11 Dose: 0.25 mg Ascorbic Acid (Vitamin C 500 Mg Tab) 500 mg PO DAILY ON LICENSE OF [facility] Last Admin: 10/29/16 10:41 Dose: 500 mg Brimonidine Tartrate (Alphagan 0.2% Opht) 0 ml OD TID ON LICENSE OF [facility] Last Admin: 10/29/16 18:36 Dose: 1 applic Clotrimazole (Lotrimin 1%) 0 gm TOP BID ON LICENSE OF [facility] Last Admin: 10/29/16 18:14 Dose: 1 applic Ergocalciferol (Drisdol 50,000 Intl Units Cap) 1 cap PO Q7D ON LICENSE OF [facility] Last Admin: 10/28/16 21:16 Dose: 1 cap Escitalopram Oxalate (Lexapro) 10 mg PO DAILY ON LICENSE OF [facility] Last Admin: 10/29/16 10:47 Dose: 10 mg Heparin Sodium (Porcine) (Heparin) 2,000 units IVP MWF ON LICENSE OF [facility] Last Admin: 10/29/16 18:40 Dose: Not Given Hydralazine HCl (Apresoline) 50 mg PO BID ON LICENSE OF [facility] Last Admin: 10/29/16 18:14 Dose: 50 mg Cefepime HCl (Maxipime Iv 1 Gm Premix) 1 gm in 50 mls @ 100 mls/hr IVPB Q24H ON LICENSE OF [facility] Last Admin: 10/29/16 16:54 Dose: 100 mls/hr Insulin Glargine (Lantus) 30 unit SC [facility] Last Admin: 10/28/16 23:00 Dose: Not Given Insulin Human Regular (Novolin R) 0 unit SC ACHS [facility] PRN Reason: Protocol Stop: 10/31/16 07:31 Latanoprost (Xalatan Opht) 0 ml OD [facility] Last Admin: 10/29/16 21:23 Dose: 2.5 ml Losartan Potassium (Cozaar) 50 mg PO Q24H ON LICENSE OF [facility] Last Admin: 10/29/16 18:13 Dose: 50 mg Megestrol Acetate (Megace) 400 mg PO DAILY ON [facility] OF [facility] Last Admin: 10/29/16 10:41 Dose: 400 mg Metoclopramide HCl (Reglan) 10 mg IVP ACHS PRN PRN Reason: Nausea/Vomiting Last Admin: 10/28/16 11:08 Dose: 10 mg Ondansetron HCl (Zofran Inj) 4 mg IVP 0730,1130,1630,2200 ON LICENSE OF [facility] Last Admin: 10/29/16 21:30 Dose: 4 mg Pantoprazole Sodium (Protonix Ec Tab) 40 mg PO DAILY ON LICENSE OF [facility] Last Admin: 10/29/16 10:41 Dose: 40 mg Rosuvastatin Calcium (Crestor) 10 mg PO HS ON LICENSE OF [facility] Last Admin: 10/29/16 21:23 Dose: 10 mg Sevelamer Carbonate (Renvela) 0.8 gm PO TIDCC ON LICENSE OF [facility] Last Admin: 10/29/16 18:40 Dose: 0.8 gm Tramadol HCl (Ultram) 25 mg PO Q6H PRN PRN Reason: PAIN 1-10 Last Admin: 10/28/16 21:16 Dose: 25 mg Vitamin B Complex/Vit C/Folic Acid (Nephro-Alonzo) 1 tab PO DAILY ON LICENSE OF [facility] Last Admin: 10/29/16 10:41 Dose: 1 tab - Labs Labs: 10/30/16 06:02 10/30/16 06:02 PT 11.3 SECONDS (9.7-12.2) 10/30/16 06:02 INR 1.0 10/30/16 06:02 APTT 28 SECONDS (21-34) 10/30/16 06:02 - Additional Findings Additional findings: - Constitutional Appears: No Acute Distress, Chronically Ill - Head Exam Head Exam: ATRAUMATIC, NORMOCEPHALIC - Eye Exam Eye Exam: EOMI Pupil Exam: PERRL - ENT Exam ENT Exam: Mucous Membranes Moist - Cardiovascular Exam Cardiovascular Exam: Normal rate/rhythm +S1, +S2 - GI/Abdominal Exam GI & Abdominal Exam: Soft, Normal Bowel Sounds - Neurological Exam Neurological Exam: Alert, Awake, Oriented x3 - Psychiatric Exam Psychiatric exam: Normal Affect - Skin Skin Exam: Normal Color, Warm Assessment and Plan - Assessment and Plan (Free Text) Plan: CKD Stage IV S/p dialysis, following cath placement by Dr. Melendez tunneled catheter today with Dr. Melendez -Cr 3.6 today, from 2.5 -as per nephrology diuretics on hold -Acetylcysteine 6ml po bid -Ascorbic acid 500mg po daily -Renvela 0.8gm po TIDCC -Drisdol 50,000 1 cap po q7days -Nephrovite 1 tab po daily -Renal u/s: medical renal disease, right kidney with nonobstructing 0.5cm stone -Nephrology: Dr Ambrose consulted Left lateral foot ulcer -likely Velazco stage 2 diabetic foot ulcer without infection/ischemia vs ulcer secondary to PAD -Left heel x-ray: limited visualization of anterior calcaneus. No acute displaced fracture. -Arterial PVR/SEG: Right negative; Left secerely decreased perfusion of the LLE noted at superficial, popliteal, and tibial A levels -LE Arterial scan: R possible occlusion of R posterior tibial A [50-75% stenosis of right mid popliteal A]; L possible occlusion of L proximal and sital posterior and proximal anterior tibial arteries; greater than 75% stenosis of the left distal superficial femoral and mid popliteal arteries; 50- 75% stenosis of L proximal poplitearl artery; recommend angiogram with endovascular repair - MRI (10/27/16): No evidence of signal abnormality noted at tibiotalar, subtalar , calcalneonavicular joint spaces, with jt space narrowing and osteophyte formation. Focal signal abnormalities seen on anterior aspect of taus, and lateral aspect of middle cuneiform which may represent osteochondral change. Plantar calcaneal spurring with mild plantar fascitis. 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 Focal signal abnormality on medial aspect of talus near insertion of deltoid ligamentsuggestive of bone brusing vs. subchondral osseous injury (see full report) -blood culture (10/26/16) no growth x 24 hours -wound culture (10/22/16): serratia marcescens, corynebacterium species - Cefepime 1gm Q24H IV (started 10/26/16, Day 5) -Tramadol 25mg po q6 PRN pain -Tylenol with codeine 1 po q6 PRN pain -Clotrimazole top bid -Venous dopplers negative b/l -Physical therapy -Wound care -ID: Dr Wellington consulted -IR : Dr Roman consulted -Surgery: Dr Melendez consulted Peripheral Arterial Disease -Angiogram pending renal function improvement vs dialysis -Arterial PVR/SEG: Right negative; Left secerely decreased perfusion of the LLE noted at superficial, popliteal, and tibial A levels -LE Arterial scan: R possible occlusion of R posterior tibial A [50-75% stenosis of right mid popliteal A]; L possible occlusion of L proximal and sital posterior and proximal anterior tibial arteries; greater than 75% stenosis of the left distal superficial femoral and mid popliteal arteries; 50- 75% stenosis of L proximal poplitearl artery; recommend angiogram with endovascular repair - Discontinued Pletal 50mg po bid per Nephro reccs -IR: Dr. Roman consulted HTN Elevated - Hydralazine 50mg po bid - Restart home STEVEN: Losartan 50mg PO Daily - HCTZ 25mg po daily Glaucoma -Alphagan 0.2% 0ml OD TID -Xalatan OD HS CAD -Hydralazine 50mg po bid -restart home STEVEN: Losartan 50mg PO Daily -Crestor 10mg po hs -Lipid panel TG 248 Cholesterol 217 LDL 113 HDL 39 DM2 -RISS high dose -Accucheck ACHS -Lantus upped to 30U SC HS -HgbA1c 12.2 Anxiety and depression -Xanax 0.25mg po q8 prn -Lexapro 10mg po daily Anemia of chronic disease -H&H on admission is 10.2 and 30.9 - CBC (10/29/16): 8.9/27.4 -Monitor for acute changes -Dr. Ambrose nephrology consulted Chronic LBP -no acute complaints on admission -Monitor CHF -As per medical records patient has hx of CHF -Echo in 2016 in medical records is unremarkable with normal EF -Echo 10/23/16: small to moderate circumferential pericardial effusion. No evidence of tamponade. The LV systolic function is normal. Elevated LA pressure. RV systolic function is normal. There is a trace aortic regurgitation. Mild mitral regurgitation. There is mild to moderate tricuspid regurgitation. RV systolic pressure is estimated at ~44mmHg compatible with mild pulmonary HTN PPX -Heparin 5000U SC Q12 -Protonix 40mg po daily -Zofran 4mg IVP (1/2 hr before meals, once at bed time) -Heart healthy moderate consistent carb diet with fluid restriction -SCDs c/i -PT <Benson Myrick Jr. - Last Filed: 11/01/16 18:58> Objective - Vital Signs/Intake and Output Vital Signs (last 24 hours): Temp Pulse Resp BP Pulse Ox 98.2 F 85 20 124/69 96 11/01/16 15:48 11/01/16 17:55 11/01/16 17:55 11/01/16 17:55 11/01/16 15:48 Intake and Output: 11/01/16 11/01/16 06:59 18:59 Intake Total 200 450 Balance 200 450 - Medications Medications: Current Medications Acetylcysteine (Acetylcysteine 20%) 6 ml PO BID ON LICENSE OF [facility] Last Admin: 10/31/16 17:36 Dose: 6 ml Ascorbic Acid (Vitamin C 500 Mg Tab) 500 mg PO DAILY ON [facility] Last Admin: 11/01/16 13:08 Dose: 500 mg Brimonidine Tartrate (Alphagan 0.2% Opht) 0 ml OD TID ON LICENSE [facility] Last Admin: 11/01/16 13:09 Dose: 1 applic Clotrimazole (Lotrimin 1%) 0 gm TOP QSHIFT ON LICENSE OF [facility] Last Admin: 11/01/16 13:07 Dose: 1 applic Epoetin Maxwell (Procrit) 10,000 unit IV TTS ON LICENSE OF [facility] Last Admin: 11/01/16 10:25 Dose: 10,000 unit Ergocalciferol (Drisdol 50,000 Intl Units Cap) 1 cap PO Q7D ON LICENSE OF [facility] Last Admin: 10/28/16 21:16 Dose: 1 cap Escitalopram Oxalate (Lexapro) 10 mg PO DAILY ON [facility] Last Admin: 11/01/16 13:10 Dose: 10 mg Ferric Sodium Gluconate Complex (Ferrlecit) 125 mg IVPB TTS ON LICENSE OF [facility] Stop: 11/07/16 16:01 Last Admin: 11/01/16 10:25 Dose: 125 mg Heparin Sodium (Porcine) (Heparin) 2,000 units IVP TuThSa ON LICENSE OF [facility] Last Admin: 11/01/16 10:26 Dose: 2,000 units Hydralazine HCl (Apresoline) 50 mg PO BID ON LICENSE OF [facility] Last Admin: 11/01/16 17:54 Dose: 50 mg Cefepime HCl (Maxipime Iv 1 Gm Premix) 1 gm in 50 mls @ 100 mls/hr IVPB Q24H ON LICENSE OF [facility] Last Admin: 11/01/16 16:45 Dose: 100 mls/hr Insulin Glargine (Lantus) 30 unit SC HS ON [facility] Last Admin: 10/31/16 21:49 Dose: 30 units Insulin Human Regular (Novolin R) 0 unit SC ACHS ON LICENSE OF [facility] PRN Reason: Protocol Last Admin: 11/01/16 17:53 Dose: 1 unit Latanoprost (Xalatan Opht) 0 ml OD HS ON LICENSE OF [facility] Last Admin: 10/31/16 21:49 Dose: 2.5 ml Losartan Potassium (Cozaar) 50 mg PO Q24H ON LICENSE OF [facility] Last Admin: 11/01/16 17:54 Dose: 50 mg Megestrol Acetate (Megace) 400 mg PO DAILY ON [facility] Last Admin: 11/01/16 13:08 Dose: 400 mg Metoclopramide HCl (Reglan) 10 mg IVP ACHS PRN PRN Reason: Nausea/Vomiting Last Admin: 10/28/16 11:08 Dose: 10 mg Ondansetron HCl (Zofran Inj) 4 mg IVP 0730,1130,1630,2200 ON LICENSE OF [facility] Last Admin: 11/01/16 16:44 Dose: 4 mg Pantoprazole Sodium (Protonix Ec Tab) 40 mg PO DAILY ON [facility] OF [facility] Last Admin: 11/01/16 13:09 Dose: 40 mg Polyethylene Glycol (Miralax) 17 gm PO DAILY [facility] Stop: 11/03/16 19:01 Rosuvastatin Calcium (Crestor) 10 mg PO HS [facility] Last Admin: 10/31/16 21:49 Dose: 10 mg Sevelamer Carbonate (Renvela) 0.8 gm PO TIDCC [facility] Last Admin: 11/01/16 17:54 Dose: 0.8 gm Tramadol HCl (Ultram) 25 mg PO Q6H PRN PRN Reason: PAIN 1-10 Last Admin: 11/01/16 16:45 Dose: 25 mg Vitamin B Complex/Vit C/Folic Acid (Nephro-Alonzo) 1 tab PO DAILY [facility] Last Admin: 11/01/16 13:11 Dose: 1 tab - Labs Labs: 11/01/16 07:17 11/01/16 07:17 PT 11.3 SECONDS (9.7-12.2) 10/30/16 06:02 INR 1.0 10/30/16 06:02 APTT 28 SECONDS (21-34) 10/30/16 06:02 Attending/Attestation - Attestation I have personally seen and examined this patient.: Yes I have fully participated in the care of the patient.: Yes I have reviewed all pertinent clinical information, including history, physical exam and plan: Yes Notes (Text): 11/01/16 18:57 Agree with resident note and findings
[2016-10-30] MEDS: (Novolin R) Insulin Human Regular 100 units/ml vial SC SCH ×4 (08:12→21:57)
[2016-10-30] MEDS: Sevelamer Carb 0.8 gm/Packet PO SCH ×3 (08:12→20:20)
[2016-10-30 08:45] LABS: EOSINOPHIL 2 % (0-4); NEUTROPHIL 79 % (50-75); NUCLEATED RED BLOOD CELL 1 % (0-0); TOTAL CELLS COUNTED 100
[2016-10-30 08:47] LABS: PLATELET CLUMPS PRESENT
[2016-10-30] MEDS: Clotrimazole 1% Cream(30 gm) TOP SCH ×2 (09:05→20:19)
[2016-10-30] MEDS: Brimonidine 0.2% Opth Sol (5ml) OD SCH ×3 (09:05→20:16)
[2016-10-30 09:57] LABS: BASO # 0.1 K/uL (0.0-0.2); BASO % 0.6 % (0.0-2.0); EOS # 0.3 K/uL (0.0-0.7); HEMATOCRIT 26.1 % (34.0-47.0); LYMPH # 1.7 K/uL (1.0-4.3); LYMPH % 10.4 % (20.0-40.0); MEAN CELL VOLUME 87.2 fL (81.0-99.0); MEAN CORPUSCULAR HGB CONC 32.1 g/dL (33.0-37.0); MEAN PLATELET VOLUME 10.5 fL (7.2-11.7); MONO # 1.5 K/uL (0.0-0.8); RED CELL DISTRIBUTION WIDTH 13.1 % (11.5-14.5); WHITE BLOOD COUNT 16.2 K/uL (4.8-10.8)
[2016-10-30] MEDS ORDERED: ceFAZolin IV 2 gm in Dextrose 0 GM/0 ML BAG IVPB ONE (10:25)
[2016-10-30] MEDS ORDERED: ceFAZolin 1 gm FROZEN Premix 1 GM/50 ML ML IVPB ONE (10:25)
[2016-10-30] MEDS ORDERED: HEPARIN-NS 5,000 UNITS/500 ML 5,000 UNIT/500 ML BAG IV ONE (10:25)
[2016-10-30] MEDS ORDERED: Lactated Ringer's 1,000 ML IV ONE (11:15)
[2016-10-30] MEDS ORDERED: Midazolam 2 MG/2 ML VIAL ONE (11:25)
[2016-10-30] MEDS ORDERED: Propofol 10 mg/ml Inj (20 ML) ONE (11:25)
[2016-10-30] MEDS: Lidocaine 1% Inj (20ml) ONE ×2 (11:28→12:06)
[2016-10-30] MEDS ORDERED: Bacitracin 500 Units/gm Oint Foilpak UD ONE (11:50)
[2016-10-30] MEDS ORDERED: Sodium Chloride 0.9% 500 ML IV ONE (11:57)
--- NOTE | 2016-10-30 12:21 | OP ---
PROCEDURE DATE: 10/30/2016 PREOPERATIVE DIAGNOSIS: Chronic renal failure. POSTOPERATIVE DIAGNOSES: Chronic renal failure. PROCEDURE PERFORMED: Removal of dialysis catheter and placement of a new right internal jugular Perm -A-Cath. SURGEON: Sergio Melendez MD. ANESTHESIA: General. ESTIMATED BLOOD LOSS: About 30 mL. POSTOPERATIVE CONDITION: Stable. PROCEDURE: The patient was taken to the operating room and placed in the supine position. IV sedati on was administered, and the right neck was prepped and draped, and the preexisting dialysis catheter was removed in order to facilitate sterility. The right internal jugular vein was again cannulated, and a guidewire was inserted. Over an introducer, guidewire was inserted. The catheter was then tu nneled into the neck and inserted over the introducer. This was confirmed fluoroscopically. The nec k puncture site had to be widened to place the catheter appropriately, and a small branch of the exte rnal jugular vein was repaired, which was bleeding. Otherwise, a small adjacent tissue transfer clos ure was performed to facilitate decreased pressure on the catheter. The patient tolerated the proce dure well, and returned to recovery room in stable condition. Sergio Melendez MD cc: [id number] TT: 10/30/2016 12:20:22 jn
[2016-10-30] MEDS: Acetylcysteine 20% Inhal Soln (4ml) PO SCH ×2 (12:50→20:17)
[2016-10-30] MEDS: Megestrol Acetate 40 mg/ml Cup PO SCH (12:51)
[2016-10-30] MEDS: Pantoprazole 40 mg EC Tab PO SCH (12:51)
[2016-10-30] MEDS: Multivitamin Vitamin B Complex (Nephro-Vite) Tab PO SCH (12:51)
--- NOTE | 2016-10-30 13:14 | RAD ---
PROCEDURE: Fluoroscopy for PermCath insertion HISTORY: As above COMPARISON: None TECHNIQUE: Fluoroscopy of the central thorax was performed by the referring clinician for PermCath insertion . Cumulative dose 0.25125 mGym2. 7.9 seconds of fluoroscopy was provided FINDINGS: Please refer to the procedural report IMPRESSION: Fluoroscopy provided.
--- NOTE | 2016-10-30 13:30 | RAD ---
HISTORY: SP Permacath insertion COMPARISON: Chest x-ray performed 10/26/16 TECHNIQUE: Chest, one view. FINDINGS: Distal tip of right-sided catheter terminates at the level of the cavoatrial junction. LUNGS: Pulmonary venous congestion. Small left pleural effusion and associated consolidation. No definite pneumothorax. Please note that chest x-ray has limited sensitivity for the detection of pulmonary masses. CARDIOVASCULAR: Cardiomegaly. Dense atherosclerotic calcification of the aortic knob. OSSEOUS STRUCTURES: Osseous demineralization. Degenerative changes. VISUALIZED UPPER ABDOMEN: Unremarkable. OTHER FINDINGS: None. IMPRESSION: Distal tip of right-sided catheter terminates at the level of the cavoatrial junction. Pulmonary venous congestion. Small left pleural effusion and associated consolidation. Cardiomegaly.
[2016-10-30] MEDS: Tramadol 25 mg PO PRN (14:28)
[2016-10-30] MEDS: Sodium Chloride 0.9% 1,000 ML IV SCH ×2 (15:44→22:00)
[2016-10-30] MEDS: Ferric Sodium Gluconat Complex 62.5 mg/5 ml Vial IVPB SCH (16:10)
[2016-10-30] MEDS: Epoetin Alfa 10,000 unit/ml Dialysis IV SCH (16:10)
--- NOTE | 2016-10-30 18:22 | CP.PCM.PN ---
Subjective - Date & Time of Evaluation Date of Evaluation: 10/30/16 Time of Evaluation: 14:00 - Subjective Subjective: SEEN ON RENAL F/U SEEN ON HD FEELS IMPROVED S/P R TUNNELLED HD CATH S/P L FOOT ANGIOGRAM/ PLASTY Objective - Vital Signs/Intake and Output Vital Signs (last 24 hours): Temp Pulse Resp BP Pulse Ox 98.1 F 82 16 161/75 H 96 10/30/16 17:50 10/30/16 17:50 10/30/16 17:50 10/30/16 17:50 10/30/16 17:50 Intake and Output: 10/30/16 10/30/16 06:59 18:59 Intake Total 400 280 Output Total 0 Balance 400 280 - Medications Medications: Current Medications Acetylcysteine (Acetylcysteine 20%) 6 ml PO BID [facility] Last Admin: 10/30/16 12:50 Dose: Not Given Ascorbic Acid (Vitamin C 500 Mg Tab) 500 mg PO DAILY [facility] Last Admin: 10/30/16 12:51 Dose: Not Given Brimonidine Tartrate (Alphagan 0.2% Opht) 0 ml OD TID [facility] Last Admin: 10/30/16 13:08 Dose: Not Given Clotrimazole (Lotrimin 1%) 0 gm TOP BID [facility] Last Admin: 10/30/16 09:05 Dose: 1 applic Epoetin Maxwell (Procrit) 10,000 unit IV TTS [facility] Last Admin: 10/30/16 16:10 Dose: 10,000 unit Ergocalciferol (Drisdol 50,000 Intl Units Cap) 1 cap PO Q7D [facility] Last Admin: 10/28/16 21:16 Dose: 1 cap Escitalopram Oxalate (Lexapro) 10 mg PO DAILY [facility] Last Admin: 10/30/16 12:50 Dose: Not Given Ferric Sodium Gluconate Complex (Ferrlecit) 125 mg IVPB TTS [facility] Stop: 11/07/16 16:01 Last Admin: 10/30/16 16:10 Dose: 125 mg Heparin Sodium (Porcine) (Heparin) 2,000 units IVP MWF [facility] Last Admin: 10/29/16 18:40 Dose: Not Given Hydralazine HCl (Apresoline) 50 mg PO BID [facility] Last Admin: 10/30/16 12:50 Dose: Not Given Cefepime HCl (Maxipime Iv 1 Gm Premix) 1 gm in 50 mls @ 100 mls/hr IVPB Q24H [facility] Last Admin: 10/29/16 16:54 Dose: 100 mls/hr Sodium Chloride (Sodium Chloride 0.9%) 1,000 mls @ 40 mls/hr IV .Q24H [facility] Last Admin: 10/30/16 15:44 Dose: Not Given Insulin Glargine (Lantus) 30 unit SC [facility] Last Admin: 10/28/16 23:00 Dose: Not Given Insulin Human Regular (Novolin R) 0 unit SC ACHS [facility] PRN Reason: Protocol Stop: 10/31/16 07:31 Last Admin: 10/30/16 14:18 Dose: Not Given Latanoprost (Xalatan Opht) 0 ml OD [facility] Last Admin: 10/29/16 21:23 Dose: 2.5 ml Losartan Potassium (Cozaar) 50 mg PO Q24H [facility] Last Admin: 10/29/16 18:13 Dose: 50 mg Megestrol Acetate (Megace) 400 mg PO DAILY [facility] Last Admin: 10/30/16 12:51 Dose: Not Given Metoclopramide HCl (Reglan) 10 mg IVP ACHS PRN PRN Reason: Nausea/Vomiting Last Admin: 10/28/16 11:08 Dose: 10 mg Ondansetron HCl (Zofran Inj) 4 mg IVP 0730,1130,1630,2200 [facility] Last Admin: 10/30/16 12:54 Dose: Not Given Pantoprazole Sodium (Protonix Ec Tab) 40 mg PO DAILY [facility] Last Admin: 10/30/16 12:51 Dose: Not Given Rosuvastatin Calcium (Crestor) 10 mg PO HS [facility] Last Admin: 10/29/16 21:23 Dose: 10 mg Sevelamer Carbonate (Renvela) 0.8 gm PO TIDCC [facility] Last Admin: 10/30/16 12:55 Dose: Not Given Tramadol HCl (Ultram) 25 mg PO Q6H PRN PRN Reason: PAIN 1-10 Last Admin: 10/30/16 14:28 Dose: 25 mg Vitamin B Complex/Vit C/Folic Acid (Nephro-Alonzo) 1 tab PO DAILY [facility] Last Admin: 10/30/16 12:51 Dose: Not Given - Labs Labs: 10/30/16 09:54 10/30/16 06:02 PT 11.3 SECONDS (9.7-12.2) 10/30/16 06:02 INR 1.0 10/30/16 06:02 APTT 28 SECONDS (21-34) 10/30/16 06:02 Assessment and Plan - Assessment and Plan (Free Text) Assessment: ON HD M W F ANEMIA ON EPO + VENOFER FOR AVF BY DR COYLE C/O CURRENT CARE
[2016-10-30] MEDS: Cefepime IV 1 gm in Dextrose 1 GM/50 ML BAG IVPB SCH (20:19)
[2016-10-30] MEDS ORDERED: (Lantus) Insulin Glargine, Recombinant SC ONE (21:25)
[2016-10-30] MEDS: Latanoprost 2.5 ml Opht Soln OD SCH (22:05)
[2016-10-31 08:09] LABS: BASO # 0.1 K/uL (0.0-0.2); BASO % 0.9 % (0.0-2.0); EOS # 0.4 K/uL (0.0-0.7); EOS % 3.1 % (0.0-4.0); HEMATOCRIT 26.1 % (34.0-47.0); LYMPH # 1.5 K/uL (1.0-4.3); LYMPH % 11.6 % (20.0-40.0); MEAN CELL VOLUME 87.3 fL (81.0-99.0); MEAN CORPUSCULAR HEMOGLOBIN 28.5 pg (27.0-31.0); MEAN CORPUSCULAR HGB CONC 32.6 g/dL (33.0-37.0); MEAN PLATELET VOLUME 9.9 fL (7.2-11.7); MONO # 1.7 K/uL (0.0-0.8); MONO % 13.4 % (0.0-10.0); NRBC % 0.1 % (0.0-2.0); RED CELL DISTRIBUTION WIDTH 13.4 % (11.5-14.5); WHITE BLOOD COUNT 12.6 K/uL (4.8-10.8)
[2016-10-31 08:22] LABS: POTASSIUM 4.2 mmol/L (3.6-5.2)
[2016-10-31 08:24] LABS: BILIRUBIN,TOTAL 0.5 mg/dL (0.2-1.3); TOTAL PROTEIN 6.3 g/dL (6.3-8.3)
[2016-10-31 08:25] LABS: CALCIUM 8.5 mg/dl (8.6-10.4); MAGNESIUM 2.2 mg/dL (1.6-2.3); PHOSPHOROUS 2.9 mg/dL (2.5-4.5)
[2016-10-31] MEDS: (Novolin R) Insulin Human Regular 100 units/ml vial SC SCH ×3 (08:53→21:37)
[2016-10-31] MEDS: Sevelamer Carb 0.8 gm/Packet PO SCH ×3 (08:53→16:37)
[2016-10-31] MEDS: Pantoprazole 40 mg EC Tab PO SCH (09:36)
[2016-10-31] MEDS: Multivitamin Vitamin B Complex (Nephro-Vite) Tab PO SCH (09:36)
[2016-10-31] MEDS: Megestrol Acetate 40 mg/ml Cup PO SCH (09:36)
[2016-10-31] MEDS: Brimonidine 0.2% Opth Sol (5ml) OD SCH ×3 (09:37→17:36)
[2016-10-31] MEDS: Clotrimazole 1% Cream(30 gm) TOP SCH ×3 (09:37→21:50)
[2016-10-31] MEDS: Acetylcysteine 20% Inhal Soln (4ml) PO SCH ×2 (09:41→17:36)
--- NOTE | 2016-10-31 12:50 | CP.PCM.PN ---
<Poonam Husain DO - Last Filed: 10/31/16 12:44> Subjective - Date & Time of Evaluation Date of Evaluation: 10/31/16 Time of Evaluation: 07:30 - Subjective Subjective: PGY1 Progress note for Dr. Myrick Patient seen and examined. Patient had dialysis yesterday after tunneled catheter insertion with Dr. Melendez. Patient states she tolerated dialysis well and feels better today. Patient denies nausea, vomiting, fever, chills. Patient eating well. Per case management, patient has spot at [facility] dialysis jerome Thursday, , Thursday at 5:45PM in [place]. Objective - Vital Signs/Intake and Output Vital Signs (last 24 hours): Temp Pulse Resp BP Pulse Ox 98.5 F 88 20 180/72 H 99 10/31/16 07:05 10/31/16 07:05 10/31/16 07:05 10/31/16 07:05 10/31/16 07:05 Intake and Output: 10/31/16 10/31/16 06:59 18:59 Intake Total 440 Balance 440 - Medications Medications: Current Medications Acetylcysteine (Acetylcysteine 20%) 6 ml PO BID [facility] Last Admin: 10/31/16 09:41 Dose: 6 ml Ascorbic Acid (Vitamin C 500 Mg Tab) 500 mg PO DAILY [facility] Last Admin: 10/31/16 09:36 Dose: 500 mg Brimonidine Tartrate (Alphagan 0.2% Opht) 0 ml OD TID [facility] Last Admin: 10/31/16 09:37 Dose: 1 applic Clotrim[facility] (Lotrimin 1%) [facility] Epoetin Maxwell (Procrit) 10,000 unit IV TTS [facility] Last Admin: 10/30/16 16:10 Dose: 10,000 unit Ergocalciferol (Drisdol 50,000 Intl Units Cap) 1 cap PO Q7D [facility] Last Admin: 10/28/16 21:16 Dose: 1 cap Escitalopram Oxalate (Lexapro) 10 mg PO DAILY [facility] Last Admin: 10/31/16 09:36 Dose: 10 mg Ferric Sodium Gluconate Complex (Ferrlecit) 125 mg IVPB TTS [facility] Stop: 11/07/16 16:01 Last Admin: 10/30/16 16:10 Dose: 125 mg Heparin Sodium (Porcine) (Heparin) 2,000 units IVP MWF [facility] Last Admin: 10/29/16 18:40 Dose: Not Given Hydralazine HCl (Apresoline) 50 mg PO BID [facility] Last Admin: 10/31/16 09:36 Dose: 50 mg Cefepime HCl (Maxipime Iv 1 Gm Premix) 1 gm in 50 mls @ 100 mls/hr IVPB Q24H [facility] Last Admin: 10/30/16 20:19 Dose: 100 mls/hr Insulin Glargine (Lantus) 30 unit SC HS [facility] Last Admin: 10/28/16 23:00 Dose: Not Given Insulin Human Regular (Novolin R) 0 unit SC ACHS [facility] PRN Reason: Protocol Latanoprost (Xalatan Opht) 0 ml OD HS [facility] Last Admin: 10/30/16 22:05 Dose: 2.5 ml Losartan Potassium (Cozaar) 50 mg PO Q24H [facility] Last Admin: 10/30/16 20:18 Dose: 50 mg Megestrol Acetate (Megace) 400 mg PO DAILY [facility] Last Admin: 10/31/16 09:36 Dose: 400 mg Metoclopramide HCl (Reglan) 10 mg IVP ACHS PRN PRN Reason: Nausea/Vomiting Last Admin: 10/28/16 11:08 Dose: 10 mg Ondansetron HCl (Zofran Inj) 4 mg IVP 0730,1130,1630,2200 [facility] Last Admin: 10/31/16 08:53 Dose: 4 mg Pantoprazole Sodium (Protonix Ec Tab) 40 mg PO DAILY [facility] Last Admin: 10/31/16 09:36 Dose: 40 mg Rosuvastatin Calcium (Crestor) 10 mg PO HS [facility] Last Admin: 10/30/16 21:57 Dose: 10 mg Sevelamer Carbonate (Renvela) 0.8 gm PO TIDCC [facility] Last Admin: 10/31/16 08:53 Dose: 0.8 gm Tramadol HCl (Ultram) 25 mg PO Q6H PRN PRN Reason: PAIN 1-10 Last Admin: 10/30/16 14:28 Dose: 25 mg Vitamin B Complex/Vit C/Folic Acid (Nephro-Alonzo) 1 tab PO DAILY [facility] Last Admin: 10/31/16 09:36 Dose: 1 tab - Labs Labs: 10/31/16 08:03 10/31/16 08:03 PT 11.3 SECONDS (9.7-12.2) 10/30/16 06:02 INR 1.0 10/30/16 06:02 APTT 28 SECONDS (21-34) 10/30/16 06:02 - Constitutional Appears: Non-toxic, No Acute Distress - Eye Exam Eye Exam: EOMI - ENT Exam ENT Exam: Mucous Membranes Moist - Neck Exam Additional comments: right sided dialysis catheter - Respiratory Exam Respiratory Exam: NORMAL BREATHING PATTERN. absent: Rales, Rhonchi, Wheezes - Cardiovascular Exam Cardiovascular Exam: +S1, +S2 - GI/Abdominal Exam GI & Abdominal Exam: Soft, Normal Bowel Sounds. absent: Tenderness - Extremities Exam Extremities Exam: Pedal Edema (bilaterally) Additional comments: left foot ulcer with santyl applied - Neurological Exam Neurological Exam: Alert, Awake - Psychiatric Exam Psychiatric exam: Normal Affect - Skin Skin Exam: Warm Assessment and Plan - Assessment and Plan (Free Text) Assessment: CKD Stage IV S/p dialysis yesterday, following cath placement by Dr. Melendez tunneled catheter 10/[address] Melendez -Cr 3.0 today -as per nephrology diuretics on hold -Acetylcysteine 6ml po bid -Ascorbic acid 500mg po daily -Renvela 0.8gm po TIDCC -Drisdol 50,000 1 cap po q7days -Nephrovite 1 tab po daily -Renal u/s: medical renal disease, right kidney with nonobstructing 0.5cm stone -Nephrology: Dr Ambrose consulted Left lateral foot ulcer -likely Velazco stage 2 diabetic foot ulcer without infection/ischemia vs ulcer secondary to PAD -Left heel x-ray: limited visualization of anterior calcaneus. No acute displaced fracture. -Arterial PVR/SEG: Right negative; Left secerely decreased perfusion of the LLE noted at superficial, popliteal, and tibial A levels -LE Arterial scan: R possible occlusion of R posterior tibial A [50-75% stenosis of right mid popliteal A]; L possible occlusion of L proximal and sital posterior and proximal anterior tibial arteries; greater than 75% stenosis of the left distal superficial femoral and mid popliteal arteries; 50- 75% stenosis of L proximal poplitearl artery; recommend angiogram with endovascular repair - MRI (10/27/16): No evidence of signal abnormality noted at tibiotalar, subtalar , calcalneonavicular joint spaces, with jt space narrowing and osteophyte formation. Focal signal abnormalities seen on anterior aspect of taus, and lateral aspect of middle cuneiform which may represent osteochondral change. Plantar calcaneal spurring with mild plantar fascitis. 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 Focal signal abnormality on medial aspect of talus near insertion of deltoid ligamentsuggestive of bone brusing vs. subchondral osseous injury (see full report) -blood culture (10/26/16) no growth x 24 hours -wound culture (10/22/16): serratia marcescens, corynebacterium species - Cefepime 1gm Q24H IV (started 10/26/16, Day 5) -Tramadol 25mg po q6 PRN pain -Tylenol with codeine 1 po q6 PRN pain -Venous dopplers negative b/l -Physical therapy -Wound care -ID: Dr Wellington consulted -IR : Dr Roman consulted -Surgery: Dr Melendez consulted Tinea Pedis -Clotrimazole topical every shift Peripheral Arterial Disease -Angiogram pending renal function improvement vs dialysis -Arterial PVR/SEG: Right negative; Left secerely decreased perfusion of the LLE noted at superficial, popliteal, and tibial A levels -LE Arterial scan: R possible occlusion of R posterior tibial A [50-75% stenosis of right mid popliteal A]; L possible occlusion of L proximal and sital posterior and proximal anterior tibial arteries; greater than 75% stenosis of the left distal superficial femoral and mid popliteal arteries; 50- 75% stenosis of L proximal poplitearl artery; recommend angiogram with endovascular repair - Discontinued Pletal 50mg po bid per Nephro reccs -IR: Dr. Roman consulted HTN Elevated - Hydralazine 50mg po bid - Restart home STEVEN: Losartan 50mg PO Daily - HCTZ 25mg po daily Glaucoma -Alphagan 0.2% 0ml OD TID -Xalatan OD HS CAD -Hydralazine 50mg po bid -restart home STEVEN: Losartan 50mg PO Daily -Crestor 10mg po hs -Lipid panel TG 248 Cholesterol 217 LDL 113 HDL 39 DM2 -RISS high dose -Accucheck ACHS -Lantus 30U SC HS -HgbA1c 12.2 Anxiety and depression -Xanax 0.25mg po q8 prn -Lexapro 10mg po daily Anemia of chronic disease -H&H on admission is 10.2 and 30.9 - CBC (10/29/16): 8.9/27.4 -Monitor for acute changes -Dr. Ambrose nephrology consulted Chronic LBP -no acute complaints on admission -Monitor CHF -As per medical records patient has hx of CHF -Echo in 2016 in medical records is unremarkable with normal EF -Echo 10/23/16: small to moderate circumferential pericardial effusion. No evidence of tamponade. The LV systolic function is normal. Elevated LA pressure. RV systolic function is normal. There is a trace aortic regurgitation. Mild mitral regurgitation. There is mild to moderate tricuspid regurgitation. RV systolic pressure is estimated at ~44mmHg compatible with mild pulmonary HTN PPX -Heparin 2000u IVP MWF -Protonix 40mg po daily -Zofran 4mg IVP (1/2 hr before meals, once at bed time) -renal diet -SCDs c/i -PT <Benson Myrick Jr. - Last Filed: 11/01/16 18:59> Objective - Vital Signs/Intake and Output Vital Signs (last 24 hours): Temp Pulse Resp BP Pulse Ox 98.2 F 85 20 124/69 96 11/01/16 15:48 11/01/16 17:55 11/01/16 17:55 11/01/16 17:55 11/01/16 15:48 Intake and Output: 11/01/16 11/01/16 06:59 18:59 Intake Total 200 450 Balance 200 450 - Medications Medications: Current Medications Acetylcysteine (Acetylcysteine 20%) 6 ml PO BID [facility] Last Admin: 10/31/16 17:36 Dose: 6 ml Ascorbic Acid (Vitamin C 500 Mg Tab) 500 mg PO DAILY [facility] Last Admin: 11/01/16 13:08 Dose: 500 mg Brimonidine Tartrate (Alphagan 0.2% Opht) 0 ml OD TID [facility] Last Admin: 11/01/16 13:09 Dose: 1 applic Clotrimazole (Lotrimin 1%) 0 gm TOP QSHIFT [facility] Last Admin: 11/01/16 13:07 Dose: 1 applic Epoetin Maxwell (Procrit) 10,000 unit IV TTS [facility] Last Admin: 11/01/16 10:25 Dose: 10,000 unit Ergocalciferol (Drisdol 50,000 Intl Units Cap) 1 cap PO Q7D [facility] Last Admin: 10/28/16 21:16 Dose: 1 cap Escitalopram Oxalate (Lexapro) 10 mg PO DAILY [facility] Last Admin: 11/01/16 13:10 Dose: 10 mg Ferric Sodium Gluconate Complex (Ferrlecit) 125 mg IVPB TTS [facility] Stop: 11/07/16 16:01 Last Admin: 11/01/16 10:25 Dose: 125 mg Heparin Sodium (Porcine) (Heparin) 2,000 units IVP TuThSa [facility] Last Admin: 11/01/16 10:26 Dose: 2,000 units Hydralazine HCl (Apresoline) 50 mg PO BID [facility] Last Admin: 11/01/16 17:54 Dose: 50 mg Cefepime HCl (Maxipime Iv 1 Gm Premix) 1 gm in 50 mls @ 100 mls/hr IVPB Q24H [facility] Last Admin: 11/01/16 16:45 Dose: 100 mls/hr Insulin Glargine (Lantus) 30 unit SC HS [facility] Last Admin: 10/31/16 21:49 Dose: 30 units Insulin Human Regular (Novolin R) 0 unit SC ACHS [facility] PRN Reason: Protocol Last Admin: 11/01/16 17:53 Dose: 1 unit Latanoprost (Xalatan Opht) 0 ml OD HS [facility] Last Admin: 10/31/16 21:49 Dose: 2.5 ml Losartan Potassium (Cozaar) 50 mg PO Q24H [facility] Last Admin: 11/01/16 17:54 Dose: 50 mg Megestrol Acetate (Megace) 400 mg PO DAILY [facility] Last Admin: 11/01/16 13:08 Dose: 400 mg Metoclopramide HCl (Reglan) 10 mg IVP ACHS PRN PRN Reason: Nausea/Vomiting Last Admin: 10/28/16 11:08 Dose: 10 mg Ondansetron HCl (Zofran Inj) 4 mg IVP 0730,1130,1630,2200 [facility] Last Admin: 11/01/16 16:44 Dose: 4 mg Pantoprazole Sodium (Protonix Ec Tab) 40 mg PO DAILY [facility] Last Admin: 11/01/16 13:09 Dose: 40 mg Polyethylene Glycol (Miralax) 17 gm PO DAILY [facility] Stop: 11/03/16 19:01 Rosuvastatin Calcium (Crestor) 10 mg PO HS [facility] Last Admin: 10/31/16 21:49 Dose: 10 mg Sevelamer Carbonate (Renvela) 0.8 gm PO TIDCC [facility] Last Admin: 11/01/16 17:54 Dose: 0.8 gm Tramadol HCl (Ultram) 25 mg PO Q6H PRN PRN Reason: PAIN 1-10 Last Admin: 11/01/16 16:45 Dose: 25 mg Vitamin B Complex/Vit C/Folic Acid (Nephro-Alonzo) 1 tab PO DAILY [facility] Last Admin: 11/01/16 13:11 Dose: 1 tab - Labs Labs: 11/01/16 07:17 11/01/16 07:17 PT 11.3 SECONDS (9.7-12.2) 10/30/16 06:02 INR 1.0 10/30/16 06:02 APTT 28 SECONDS (21-34) 10/30/16 06:02 Attending/Attestation - Attestation I have personally seen and examined this patient.: Yes I have fully participated in the care of the patient.: Yes I have reviewed all pertinent clinical information, including history, physical exam and plan: Yes Notes (Text): 11/01/16 18:58 Agree with resident's findings
[2016-10-31] MEDS ORDERED: (Novolin R) Insulin Human Regular 100 units/ml vial SC ONE (14:12)
[2016-10-31] MEDS: Cefepime IV 1 gm in Dextrose 1 GM/50 ML BAG IVPB SCH (15:47)
[2016-10-31] MEDS ORDERED: (Novolin R) Insulin Human Regular 100 units/ml vial SC SCH ×2 (16:30)
[2016-10-31] MEDS: (Lantus) Insulin Glargine, Recombinant SC SCH (21:49)
[2016-10-31] MEDS: Latanoprost 2.5 ml Opht Soln OD SCH (21:49)
[2016-11-01] MEDS: Clotrimazole 1% Cream(30 gm) TOP SCH ×3 (05:27→22:22)
[2016-11-01 07:27] LABS: BASO # 0.1 K/uL (0.0-0.2); EOS # 0.7 K/uL (0.0-0.7); EOS % 5.3 % (0.0-4.0); HEMATOCRIT 26.2 % (34.0-47.0); LYMPH # 1.7 K/uL (1.0-4.3); MEAN CELL VOLUME 87.6 fL (81.0-99.0); MEAN CORPUSCULAR HEMOGLOBIN 28.6 pg (27.0-31.0); MEAN CORPUSCULAR HGB CONC 32.7 g/dL (33.0-37.0); MONO # 1.7 K/uL (0.0-0.8); MONO % 12.5 % (0.0-10.0); RED CELL DISTRIBUTION WIDTH 13.3 % (11.5-14.5); WHITE BLOOD COUNT 13.9 K/uL (4.8-10.8)
[2016-11-01 07:39] LABS: POTASSIUM 4.2 mmol/L (3.6-5.2)
[2016-11-01 07:41] LABS: ALB/GLOB RATIO 0.9 (1.0-2.1); BILIRUBIN,TOTAL 0.4 mg/dL (0.2-1.3); TOTAL PROTEIN 6.2 g/dL (6.3-8.3)
[2016-11-01 07:42] LABS: CALCIUM 8.4 mg/dl (8.6-10.4); MAGNESIUM 2.1 mg/dL (1.6-2.3); PHOSPHOROUS 3.2 mg/dL (2.5-4.5)
[2016-11-01] MEDS: (Novolin R) Insulin Human Regular 100 units/ml vial SC SCH ×4 (07:51→22:10)
[2016-11-01] MEDS: Sevelamer Carb 0.8 gm/Packet PO SCH ×3 (08:49→17:54)
[2016-11-01] MEDS: Epoetin Alfa 10,000 unit/ml Dialysis IV SCH (10:25)
[2016-11-01] MEDS: Ferric Sodium Gluconat Complex 62.5 mg/5 ml Vial IVPB SCH (10:25)
[2016-11-01] MEDS: Brimonidine 0.2% Opth Sol (5ml) OD SCH ×3 (10:48→22:09)
--- NOTE | 2016-11-01 11:18 | CP.PCM.PN ---
Subjective - Date & Time of Evaluation Date of Evaluation: 11/01/16 Time of Evaluation: 15:00 - Subjective Subjective: Dr. Myrick's progress note: Patient seen in room with present. History is obtained through in demand chemist intern. She reports coming to the hospital because of pain in her right foot which she normally has pain in her right foot. She says the pain is intermittent in intensity and is sharp in nature. She denies fever, chills, chest pain, shortness of breath, nausea, vomiting, or diarrhea. Objective - Vital Signs/Intake and Output Vital Signs (last 24 hours): Temp Pulse Resp BP Pulse Ox 98.7 F 93 H 20 177/75 H 98 11/01/16 09:11 11/01/16 09:11 11/01/16 09:11 11/01/16 11:16 11/01/16 08:11 Intake and Output: 11/01/16 11/01/16 06:59 18:59 Intake Total 200 Balance 200 - Medications Medications: Current Medications Acetylcysteine (Acetylcysteine 20%) 6 ml PO BID [facility] Last Admin: 10/31/16 17:36 Dose: 6 ml Ascorbic Acid (Vitamin C 500 Mg Tab) 500 mg PO DAILY [facility] Last Admin: 10/31/16 09:36 Dose: 500 mg Brimonidine Tartrate (Alphagan 0.2% Opht) 0 ml OD TID [facility] Last Admin: 11/01/16 10:48 Dose: Not Given Clotrimazole (Lotrimin 1%) 0 gm TOP QSHIFT [facility] Last Admin: 11/01/16 05:27 Dose: 1 applic Epoetin Maxwell (Procrit) 10,000 unit IV TTS [facility] Last Admin: 11/01/16 10:25 Dose: 10,000 unit Ergocalciferol (Drisdol 50,000 Intl Units Cap) 1 cap PO Q7D [facility] Last Admin: 10/28/16 21:16 Dose: 1 cap Escitalopram Oxalate (Lexapro) 10 mg PO DAILY [facility] Last Admin: 10/31/16 09:36 Dose: 10 mg Ferric Sodium Gluconate Complex (Ferrlecit) 125 mg IVPB TTS [facility] Stop: 11/07/16 16:01 Last Admin: 11/01/16 10:25 Dose: 125 mg Heparin Sodium (Porcine) (Heparin) 2,000 units IVP TuThSa [facility] Last Admin: 11/01/16 10:26 Dose: 2,000 units Hydralazine HCl (Apresoline) 50 mg PO BID [facility] Last Admin: 11/01/16 10:48 Dose: Not Given Cefepime HCl (Maxipime Iv 1 Gm Premix) 1 gm in 50 mls @ 100 mls/hr IVPB Q24H [facility] Last Admin: 10/31/16 15:47 Dose: 100 mls/hr Insulin Glargine (Lantus) 30 unit SC [facility] Last Admin: 10/31/16 21:49 Dose: 30 units Insulin Human Regular (Novolin R) 0 unit SC ACHS [facility] PRN Reason: Protocol Last Admin: 11/01/16 07:51 Dose: Not Given Latanoprost (Xalatan Opht) 0 ml OD [facility] Last Admin: 10/31/16 21:49 Dose: 2.5 ml Losartan Potassium (Cozaar) 50 mg PO Q24H [facility] Last Admin: 10/31/16 17:36 Dose: 50 mg Megestrol Acetate (Megace) 400 mg PO DAILY [facility] Last Admin: 10/31/16 09:36 Dose: 400 mg Metoclopramide HCl (Reglan) 10 mg IVP ACHS PRN PRN Reason: Nausea/Vomiting Last Admin: 10/28/16 11:08 Dose: 10 mg Ondansetron HCl (Zofran Inj) 4 mg IVP 0730,1130,1630,2200 [facility] Last Admin: 11/01/16 08:36 Dose: 4 mg Pantoprazole Sodium (Protonix Ec Tab) 40 mg PO DAILY [facility] Last Admin: 10/31/16 09:36 Dose: 40 mg Rosuvastatin Calcium (Crestor) 10 mg PO HS [facility] Last Admin: 10/31/16 21:49 Dose: 10 mg Sevelamer Carbonate (Renvela) 0.8 gm PO TIDCC [facility] Last Admin: 11/01/16 08:49 Dose: 0.8 gm Tramadol HCl (Ultram) 25 mg PO Q6H PRN PRN Reason: PAIN 1-10 Last Admin: 10/30/16 14:28 Dose: 25 mg Vitamin B Complex/Vit C/Folic Acid (Nephro-Alonzo) 1 tab PO DAILY [facility] Last Admin: 10/31/16 09:36 Dose: 1 tab - Labs Labs: 11/01/16 07:17 11/01/16 07:17 PT 11.3 SECONDS (9.7-12.2) 10/30/16 06:02 INR 1.0 10/30/16 06:02 APTT 28 SECONDS (21-34) 10/30/16 06:02 - Constitutional Appears: Non-toxic, No Acute Distress - Head Exam Head Exam: NORMAL INSPECTION - Eye Exam Eye Exam: Normal appearance Pupil Exam: NORMAL ACCOMODATION - ENT Exam ENT Exam: Normal Exam - Neck Exam Neck Exam: Normal Inspection - Respiratory Exam Respiratory Exam: Clear to Ausculation Bilateral. absent: Rhonchi, Wheezes - Cardiovascular Exam Cardiovascular Exam: REGULAR RHYTHM, RRR, +S1, +S2. absent: Gallop, Rubs - GI/Abdominal Exam GI & Abdominal Exam: Soft, Normal Bowel Sounds. absent: Guarding, Rigid, Tenderness - Extremities Exam Extremities Exam: absent: Calf Tenderness, Pedal Edema Additional comments: dialysis catheter noted. dressing with boot around right foot - Back Exam Back Exam: NORMAL INSPECTION - Neurological Exam Neurological Exam: Alert, Oriented x3 - Psychiatric Exam Psychiatric exam: Normal Affect, Normal Mood - Skin Skin Exam: Normal Color Assessment and Plan - Assessment and Plan (Free Text) Assessment: CKD Stage IV 11/01: Patient went for dialysis today, continue with current medications, and follow up with Dr. Ambrose reccomendations S/p dialysis yesterday, following cath placement by Dr. Melendez tunneled catheter 10/[address] Melendez -Cr 3.0 today -as per nephrology diuretics on hold -Acetylcysteine 6ml po bid -Ascorbic acid 500mg po daily -Renvela 0.8gm po TIDCC -Drisdol 50,000 1 cap po q7days -Nephrovite 1 tab po daily -Renal u/s: medical renal disease, right kidney with nonobstructing 0.5cm stone -Nephrology: Dr Ambrose consulted Left lateral foot ulcer 11/01: Surgery scheduled for Friday 11/[address] Amin, continue physical therapy, wound care. likely Velazco stage 2 diabetic foot ulcer without infection/ischemia vs ulcer secondary to PAD -Left heel x-ray: limited visualization of anterior calcaneus. No acute displaced fracture. -Arterial PVR/SEG: Right negative; Left secerely decreased perfusion of the LLE noted at superficial, popliteal, and tibial A levels -LE Arterial scan: R possible occlusion of R posterior tibial A [50-75% stenosis of right mid popliteal A]; L possible occlusion of L proximal and sital posterior and proximal anterior tibial arteries; greater than 75% stenosis of the left distal superficial femoral and mid popliteal arteries; 50- 75% stenosis of L proximal poplitearl artery; recommend angiogram with endovascular repair - MRI (10/27/16): No evidence of signal abnormality noted at tibiotalar, subtalar , calcalneonavicular joint spaces, with jt space narrowing and osteophyte formation. Focal signal abnormalities seen on anterior aspect of taus, and lateral aspect of middle cuneiform which may represent osteochondral change. Plantar calcaneal spurring with mild plantar fascitis. 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 Focal signal abnormality on medial aspect of talus near insertion of deltoid ligamentsuggestive of bone brusing vs. subchondral osseous injury (see full report) -blood culture (10/26/16) no growth x 24 hours -wound culture (10/22/16): serratia marcescens, corynebacterium species - Cefepime 1gm Q24H IV (started 10/26/16, Day 5) -Tramadol 25mg po q6 PRN pain -Tylenol with codeine 1 po q6 PRN pain -Venous dopplers negative b/l -Physical therapy -Wound care -ID: Dr Wellington consulted -IR : Dr Roman consulted -Surgery: Dr Melendez consulted Tinea Pedis -Clotrimazole topical every shift Peripheral Arterial Disease -Angiogram pending renal function improvement vs dialysis -Arterial PVR/SEG: Right negative; Left secerely decreased perfusion of the LLE noted at superficial, popliteal, and tibial A levels -LE Arterial scan: R possible occlusion of R posterior tibial A [50-75% stenosis of right mid popliteal A]; L possible occlusion of L proximal and sital posterior and proximal anterior tibial arteries; greater than 75% stenosis of the left distal superficial femoral and mid popliteal arteries; 50- 75% stenosis of L proximal poplitearl artery; recommend angiogram with endovascular repair - Discontinued Pletal 50mg po bid per Nephro reccs -IR: Dr. Roman consulted HTN Elevated - Hydralazine 50mg po bid - Restart home STEVEN: Losartan 50mg PO Daily - HCTZ 25mg po daily Glaucoma -Alphagan 0.2% 0ml OD TID -Xalatan OD HS CAD -Hydralazine 50mg po bid -restart home STEVEN: Losartan 50mg PO Daily -Crestor 10mg po hs -Lipid panel TG 248 Cholesterol 217 LDL 113 HDL 39 DM2 -RISS high dose -Accucheck ACHS -Lantus 30U SC HS -HgbA1c 12.2 Anxiety and depression -Xanax 0.25mg po q8 prn -Lexapro 10mg po daily Anemia of chronic disease -H&H on admission is 10.2 and 30.9 - CBC (10/29/16): 8.9/27.4 -Monitor for acute changes -Dr. Ambrose nephrology consulted Chronic LBP -no acute complaints on admission -Monitor CHF -As per medical records patient has hx of CHF -Echo in 2016 in medical records is unremarkable with normal EF -Echo 10/23/16: small to moderate circumferential pericardial effusion. No evidence of tamponade. The LV systolic function is normal. Elevated LA pressure. RV systolic function is normal. There is a trace aortic regurgitation. Mild mitral regurgitation. There is mild to moderate tricuspid regurgitation. RV systolic pressure is estimated at ~44mmHg compatible with mild pulmonary HTN PPX -Heparin 2000u IVP MWF -Protonix 40mg po daily -Zofran 4mg IVP (1/2 hr before meals, once at bed time) -renal diet -SCDs c/i -PT
[2016-11-01] MEDS: Megestrol Acetate 40 mg/ml Cup PO SCH (13:08)
[2016-11-01] MEDS: Pantoprazole 40 mg EC Tab PO SCH (13:09)
[2016-11-01] MEDS: Multivitamin Vitamin B Complex (Nephro-Vite) Tab PO SCH (13:11)
[2016-11-01] MEDS: Tramadol 25 mg PO PRN ×2 (16:45→23:55)
[2016-11-01] MEDS: Cefepime IV 1 gm in Dextrose 1 GM/50 ML BAG IVPB SCH (16:45)
--- NOTE | 2016-11-01 18:50 | CP.PCM.PN ---
Subjective - Date & Time of Evaluation Date of Evaluation: 11/01/16 Time of Evaluation: 18:49 - Subjective Subjective: SEEN ON RENAL F/U ON HD today FEELS IMPROVED S/P R TUNNELLED HD CATH S/P L FOOT ANGIOGRAM/ PLASTY Objective - Vital Signs/Intake and Output Vital Signs (last 24 hours): Temp Pulse Resp BP Pulse Ox 98.2 F 85 20 124/69 96 11/01/16 15:48 11/01/16 17:55 11/01/16 17:55 11/01/16 17:55 11/01/16 15:48 Intake and Output: 11/01/16 11/01/16 06:59 18:59 Intake Total 200 450 Balance 200 450 - Medications Medications: Current Medications Acetylcysteine (Acetylcysteine 20%) 6 ml PO BID [facility] Last Admin: 10/31/16 17:36 Dose: 6 ml Ascorbic Acid (Vitamin C 500 Mg Tab) 500 mg PO DAILY [facility] Last Admin: 11/01/16 13:08 Dose: 500 mg Brimonidine Tartrate (Alphagan 0.2% Opht) 0 ml OD TID [facility] Last Admin: 11/01/16 13:09 Dose: 1 applic Clotrimazole (Lotrimin 1%) 0 gm TOP QSHIFT [facility] Last Admin: 11/01/16 13:07 Dose: 1 applic Epoetin Maxwell (Procrit) 10,000 unit IV TTS [facility] Last Admin: 11/01/16 10:25 Dose: 10,000 unit Ergocalciferol (Drisdol 50,000 Intl Units Cap) 1 cap PO Q7D [facility] Last Admin: 10/28/16 21:16 Dose: 1 cap Escitalopram Oxalate (Lexapro) 10 mg PO DAILY [facility] Last Admin: 11/01/16 13:10 Dose: 10 mg Ferric Sodium Gluconate Complex (Ferrlecit) 125 mg IVPB TTS [facility] Stop: 11/07/16 16:01 Last Admin: 11/01/16 10:25 Dose: 125 mg Heparin Sodium (Porcine) (Heparin) 2,000 units IVP TuThSa [facility] Last Admin: 11/01/16 10:26 Dose: 2,000 units Hydralazine HCl (Apresoline) 50 mg PO BID [facility] Last Admin: 11/01/16 17:54 Dose: 50 mg Cefepime HCl (Maxipime Iv 1 Gm Premix) 1 gm in 50 mls @ 100 mls/hr IVPB Q24H [facility] Last Admin: 11/01/16 16:45 Dose: 100 mls/hr Insulin Glargine (Lantus) 30 unit SC HS [facility] Last Admin: 10/31/16 21:49 Dose: 30 units Insulin Human Regular (Novolin R) 0 unit SC ACHS ELINA PRN Reason: Protocol Last Admin: 11/01/16 17:53 Dose: 1 unit Latanoprost (Xalatan Opht) 0 ml OD HS [facility] Last Admin: 10/31/16 21:49 Dose: 2.5 ml Losartan Potassium (Cozaar) 50 mg PO Q24H [facility] Last Admin: 11/01/16 17:54 Dose: 50 mg Megestrol Acetate (Megace) 400 mg PO DAILY [facility] Last Admin: 11/01/16 13:08 Dose: 400 mg Metoclopramide HCl (Reglan) 10 mg IVP ACHS PRN PRN Reason: Nausea/Vomiting Last Admin: 10/28/16 11:08 Dose: 10 mg Ondansetron HCl (Zofran Inj) 4 mg IVP 0730,1130,1630,2200 [facility] Last Admin: 11/01/16 16:44 Dose: 4 mg Pantoprazole Sodium (Protonix Ec Tab) 40 mg PO DAILY [facility] Last Admin: 11/01/16 13:09 Dose: 40 mg Rosuvastatin Calcium (Crestor) 10 mg PO HS [facility] Last Admin: 10/31/16 21:49 Dose: 10 mg Sevelamer Carbonate (Renvela) 0.8 gm PO TIDCC [facility] Last Admin: 11/01/16 17:54 Dose: 0.8 gm Tramadol HCl (Ultram) 25 mg PO Q6H PRN PRN Reason: PAIN 1-10 Last Admin: 11/01/16 16:45 Dose: 25 mg Vitamin B Complex/Vit C/Folic Acid (Nephro-Alonzo) 1 tab PO DAILY [facility] Last Admin: 11/01/16 13:11 Dose: 1 tab - Labs Labs: 11/01/16 07:17 11/01/16 07:17 PT 11.3 SECONDS (9.7-12.2) 10/30/16 06:02 INR 1.0 10/30/16 06:02 APTT 28 SECONDS (21-34) 10/30/16 06:02 - Constitutional Appears: Non-toxic - Head Exam Head Exam: NORMAL INSPECTION - Eye Exam Eye Exam: Normal appearance Pupil Exam: NORMAL ACCOMODATION - ENT Exam ENT Exam: Mucous Membranes Moist - Respiratory Exam Respiratory Exam: NORMAL BREATHING PATTERN - Cardiovascular Exam Cardiovascular Exam: REGULAR RHYTHM - GI/Abdominal Exam GI & Abdominal Exam: Soft - Extremities Exam Extremities Exam: Normal Inspection - Neurological Exam Neurological Exam: Awake, Oriented x3 - Psychiatric Exam Psychiatric exam: Normal Affect, Normal Mood - Skin Skin Exam: Dry, Normal Color, Warm
[2016-11-01] MEDS: Latanoprost 2.5 ml Opht Soln OD SCH (22:09)
[2016-11-01] MEDS: (Lantus) Insulin Glargine, Recombinant SC SCH (22:09)
[2016-11-01] MEDS: POLYETHYLENE GLYCOL 3350 17 GM/Dose PACKET PO SCH (22:10)
[2016-11-01] MEDS: Acetylcysteine 20% Inhal Soln (4ml) PO SCH (22:21)
[2016-11-02] MEDS: Clotrimazole 1% Cream(30 gm) TOP SCH ×3 (05:40→21:39)
[2016-11-02] MEDS: (Novolin R) Insulin Human Regular 100 units/ml vial SC SCH ×4 (08:01→21:31)
[2016-11-02 08:16] LABS: BASO # 0.1 K/uL (0.0-0.2); BASO % 0.8 % (0.0-2.0); EOS # 0.5 K/uL (0.0-0.7); EOS % 4.1 % (0.0-4.0); HEMATOCRIT 24.5 % (34.0-47.0); LYMPH # 1.7 K/uL (1.0-4.3); LYMPH % 13.3 % (20.0-40.0); MEAN CELL VOLUME 87.8 fL (81.0-99.0); MEAN CORPUSCULAR HEMOGLOBIN 28.9 pg (27.0-31.0); MEAN CORPUSCULAR HGB CONC 32.9 g/dL (33.0-37.0); MONO # 1.8 K/uL (0.0-0.8); MONO % 13.7 % (0.0-10.0); NRBC % 0.1 % (0.0-2.0); RED CELL DISTRIBUTION WIDTH 13.6 % (11.5-14.5); WHITE BLOOD COUNT 12.8 K/uL (4.8-10.8)
[2016-11-02] MEDS: Sevelamer Carb 0.8 gm/Packet PO SCH ×3 (08:23→16:12)
--- NOTE | 2016-11-02 08:24 | CP.PCM.PN ---
Subjective - Date & Time of Evaluation Date of Evaluation: 11/02/16 Time of Evaluation: 11:00 - Subjective Subjective: Dr. Myrick progress notes: Patient is seen and examined in room. She is complaining of constipation and some lower leg pain but other odell no complaints of fever, chills, nasuea, vomiting, chest pain, or shortness of breath. She also complains of a lack of appetite. Objective - Vital Signs/Intake and Output Vital Signs (last 24 hours): Temp Pulse Resp BP Pulse Ox 99.8 F H 81 20 147/65 96 11/02/16 08:13 11/02/16 08:13 11/02/16 08:13 11/02/16 08:13 11/02/16 08:13 Intake and Output: 11/02/16 11/02/16 06:59 18:59 Intake Total 660 Balance 660 - Medications Medications: Current Medications Acetylcysteine (Acetylcysteine 20%) 6 ml PO BID [facility] Last Admin: 11/01/16 22:21 Dose: 6 ml Ascorbic Acid (Vitamin C 500 Mg Tab) 500 mg PO DAILY [facility] Last Admin: 11/01/16 13:08 Dose: 500 mg Brimonidine Tartrate (Alphagan 0.2% Opht) 0 ml OD TID [facility] Last Admin: 11/01/16 22:09 Dose: 1 drop Clotrimazole (Lotrimin 1%) 0 gm TOP QSHIFT [facility] Last Admin: 11/02/16 05:40 Dose: 1 applic Epoetin Maxwell (Procrit) 10,000 unit IV TTS [facility] Last Admin: 11/01/16 10:25 Dose: 10,000 unit Ergocalciferol (Drisdol 50,000 Intl Units Cap) 1 cap PO Q7D [facility] Last Admin: 10/28/16 21:16 Dose: 1 cap Escitalopram Oxalate (Lexapro) 10 mg PO DAILY [facility] Last Admin: 11/01/16 13:10 Dose: 10 mg Ferric Sodium Gluconate Complex (Ferrlecit) 125 mg IVPB TTS [facility] Stop: 11/07/16 16:01 Last Admin: 11/01/16 10:25 Dose: 125 mg Heparin Sodium (Porcine) (Heparin) 2,000 units IVP TuThSa [facility] Last Admin: 11/01/16 10:26 Dose: 2,000 units Hydralazine HCl (Apresoline) 50 mg PO BID [facility] Last Admin: 11/01/16 17:54 Dose: 50 mg Cefepime HCl (Maxipime Iv 1 Gm Premix) 1 gm in 50 mls @ 100 mls/hr IVPB Q24H [facility] Last Admin: 11/01/16 16:45 Dose: 100 mls/hr Insulin Glargine (Lantus) 30 unit SC HS [facility] Last Admin: 11/01/16 22:09 Dose: 30 units Insulin Human Regular (Novolin R) 0 unit SC ACHS ELINA PRN Reason: Protocol Last Admin: 11/02/16 08:01 Dose: Not Given Latanoprost (Xalatan Opht) 0 ml OD HS [facility] Last Admin: 11/01/16 22:09 Dose: 1 ml Losartan Potassium (Cozaar) 50 mg PO Q24H [facility] Last Admin: 11/01/16 17:54 Dose: 50 mg Megestrol Acetate (Megace) 400 mg PO DAILY [facility] Last Admin: 11/01/16 13:08 Dose: 400 mg Metoclopramide HCl (Reglan) 10 mg IVP ACHS PRN PRN Reason: Nausea/Vomiting Last Admin: 10/28/16 11:08 Dose: 10 mg Ondansetron HCl (Zofran Inj) 4 mg IVP 0730,1130,1630,2200 [facility] Last Admin: 11/02/16 08:23 Dose: 4 mg Pantoprazole Sodium (Protonix Ec Tab) 40 mg PO DAILY [facility] Last Admin: 11/01/16 13:09 Dose: 40 mg Polyethylene Glycol (Miralax) 17 gm PO DAILY [facility] Stop: 11/03/16 19:01 Last Admin: 11/01/16 22:10 Dose: 17 gm Rosuvastatin Calcium (Crestor) 10 mg PO HS [facility] Last Admin: 11/01/16 22:11 Dose: 10 mg Sevelamer Carbonate (Renvela) 0.8 gm PO TIDCC [facility] Last Admin: 11/02/16 08:23 Dose: 0.8 gm Tramadol HCl (Ultram) 25 mg PO Q6H PRN PRN Reason: PAIN 1-10 Last Admin: 11/01/16 23:55 Dose: 25 mg Vitamin B Complex/Vit C/Folic Acid (Nephro-Alonzo) 1 tab PO DAILY [facility] Last Admin: 11/01/16 13:11 Dose: 1 tab - Labs Labs: 11/02/16 08:06 11/01/16 07:17 PT 11.3 SECONDS (9.7-12.2) 10/30/16 06:02 INR 1.0 10/30/16 06:02 APTT 28 SECONDS (21-34) 10/30/16 06:02 - Constitutional Appears: Non-toxic, No Acute Distress - Head Exam Head Exam: NORMAL INSPECTION - Eye Exam Eye Exam: Normal appearance - ENT Exam ENT Exam: Normal Exam - Respiratory Exam Respiratory Exam: Clear to Ausculation Bilateral. absent: Rales, Rhonchi, Wheezes - Cardiovascular Exam Cardiovascular Exam: REGULAR RHYTHM, RRR, +S1, +S2. absent: Gallop, Rubs - GI/Abdominal Exam GI & Abdominal Exam: Soft, Normal Bowel Sounds. absent: Tenderness - Extremities Exam Extremities Exam: Normal Inspection. absent: Pedal Edema - Back Exam Back Exam: NORMAL INSPECTION - Psychiatric Exam Psychiatric exam: Normal Affect, Normal Mood - Skin Skin Exam: Normal Color, Warm Assessment and Plan - Assessment and Plan (Free Text) Assessment: 11/02: Patient is scheduled for surgery, will keep NPO past midnight. her creatine today is 3.4, continue monitor her kidney function. 11/01: Patient went for dialysis today, continue with current medications, and follow up with Dr. Ambrose reccomendations S/p dialysis yesterday, following cath placement by Dr. Melendez tunneled catheter 10/[address] Melendez -Cr 3.0 today -as per nephrology diuretics on hold -Acetylcysteine 6ml po bid -Ascorbic acid 500mg po daily -Renvela 0.8gm po TIDCC -Drisdol 50,000 1 cap po q7days -Nephrovite 1 tab po daily -Renal u/s: medical renal disease, right kidney with nonobstructing 0.5cm stone -Nephrology: Dr Ambrose consulted Left lateral foot ulcer 11/01: Surgery scheduled for Friday 11/[address] Amin, continue physical therapy, wound care. likely Velazco stage 2 diabetic foot ulcer without infection/ischemia vs ulcer secondary to PAD -Left heel x-ray: limited visualization of anterior calcaneus. No acute displaced fracture. -Arterial PVR/SEG: Right negative; Left secerely decreased perfusion of the LLE noted at superficial, popliteal, and tibial A levels -LE Arterial scan: R possible occlusion of R posterior tibial A [50-75% stenosis of right mid popliteal A]; L possible occlusion of L proximal and sital posterior and proximal anterior tibial arteries; greater than 75% stenosis of the left distal superficial femoral and mid popliteal arteries; 50- 75% stenosis of L proximal poplitearl artery; recommend angiogram with endovascular repair - MRI (10/27/16): No evidence of signal abnormality noted at tibiotalar, subtalar , calcalneonavicular joint spaces, with jt space narrowing and osteophyte formation. Focal signal abnormalities seen on anterior aspect of taus, and lateral aspect of middle cuneiform which may represent osteochondral change. Plantar calcaneal spurring with mild plantar fascitis. 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 Focal signal abnormality on medial aspect of talus near insertion of deltoid ligamentsuggestive of bone brusing vs. subchondral osseous injury (see full report) -blood culture (10/26/16) no growth x 24 hours -wound culture (10/22/16): serratia marcescens, corynebacterium species - Cefepime 1gm Q24H IV (started 10/26/16, Day 5) -Tramadol 25mg po q6 PRN pain -Tylenol with codeine 1 po q6 PRN pain -Venous dopplers negative b/l -Physical therapy -Wound care -ID: Dr Wellington consulted -IR : Dr Roman consulted -Surgery: Dr Melendez consulted Tinea Pedis -Clotrimazole topical every shift Peripheral Arterial Disease Angiogram pending renal function improvement vs dialysis -Arterial PVR/SEG: Right negative; Left secerely decreased perfusion of the LLE noted at superficial, popliteal, and tibial A levels -LE Arterial scan: R possible occlusion of R posterior tibial A [50-75% stenosis of right mid popliteal A]; L possible occlusion of L proximal and sital posterior and proximal anterior tibial arteries; greater than 75% stenosis of the left distal superficial femoral and mid popliteal arteries; 50- 75% stenosis of L proximal poplitearl artery; recommend angiogram with endovascular repair - Discontinued Pletal 50mg po bid per Nephro reccs -IR: Dr. Roman consulted HTN 11/02: BP controlled, continue current medications Elevated - Hydralazine 50mg po bid - Restart home STEVEN: Losartan 50mg PO Daily - HCTZ 25mg po daily Glaucoma -Alphagan 0.2% 0ml OD TID -Xalatan OD HS CAD -Hydralazine 50mg po bid -restart home STEVEN: Losartan 50mg PO Daily -Crestor 10mg po hs -Lipid panel TG 248 Cholesterol 217 LDL 113 HDL 39 DM2 -RISS high dose -Accucheck ACHS -Lantus 30U SC HS -HgbA1c 12.2 Anxiety and depression -Xanax 0.25mg po q8 prn -Lexapro 10mg po daily Anemia of chronic disease -H&H on admission is 10.2 and 30.9 - CBC (10/29/16): 8.9/27.4 -Monitor for acute changes -Dr. Ambrose nephrology consulted Chronic LBP -no acute complaints on admission -Monitor CHF -As per medical records patient has hx of CHF -Echo in 2016 in medical records is unremarkable with normal EF -Echo 10/23/16: small to moderate circumferential pericardial effusion. No evidence of tamponade. The LV systolic function is normal. Elevated LA pressure. RV systolic function is normal. There is a trace aortic regurgitation. Mild mitral regurgitation. There is mild to moderate tricuspid regurgitation. RV systolic pressure is estimated at ~44mmHg compatible with mild pulmonary HTN PPX -Heparin 2000u IVP MWF -Protonix 40mg po daily -Zofran 4mg IVP (1/2 hr before meals, once at bed time) -renal diet -SCDs c/i -PT
[2016-11-02 08:35] LABS: POTASSIUM 4.4 mmol/L (3.6-5.2)
[2016-11-02 08:38] LABS: BILIRUBIN,TOTAL 0.5 mg/dL (0.2-1.3); CALCIUM 8.3 mg/dl (8.6-10.4); PHOSPHOROUS 2.7 mg/dL (2.5-4.5); TOTAL PROTEIN 5.9 g/dL (6.3-8.3)
[2016-11-02 08:39] LABS: MAGNESIUM 2.2 mg/dL (1.6-2.3)
[2016-11-02] MEDS: Pantoprazole 40 mg EC Tab PO SCH (09:50)
[2016-11-02] MEDS: Multivitamin Vitamin B Complex (Nephro-Vite) Tab PO SCH (09:50)
[2016-11-02] MEDS: Megestrol Acetate 40 mg/ml Cup PO SCH (09:51)
[2016-11-02] MEDS: POLYETHYLENE GLYCOL 3350 17 GM/Dose PACKET PO SCH (09:52)
[2016-11-02] MEDS: Brimonidine 0.2% Opth Sol (5ml) OD SCH ×3 (09:52→18:01)
--- NOTE | 2016-11-02 13:14 | CP.PCM.PN ---
Subjective - Date & Time of Evaluation Date of Evaluation: 11/02/16 Time of Evaluation: 10:00 - Subjective Subjective: PAIN LESS S/P ANGIOPLASTY WOUND RIGHT FOOT STABLE CONT RX/ HD Objective - Vital Signs/Intake and Output Vital Signs (last 24 hours): Temp Pulse Resp BP Pulse Ox 98.3 F 87 20 132/63 96 11/02/16 10:10 11/02/16 10:10 11/02/16 08:13 11/02/16 10:10 11/02/16 08:13 Intake and Output: 11/02/16 11/02/16 06:59 18:59 Intake Total 660 Balance 660 - Medications Medications: Current Medications Acetylcysteine (Acetylcysteine 20%) 6 ml PO BID [facility] Last Admin: 11/01/16 22:21 Dose: 6 ml Ascorbic Acid (Vitamin C 500 Mg Tab) 500 mg PO DAILY [facility] Last Admin: 11/02/16 09:50 Dose: 500 mg Brimonidine Tartrate (Alphagan 0.2% Opht) 0 ml OD TID [facility] Last Admin: 11/02/16 09:52 Dose: 1 drop Clotrimazole (Lotrimin 1%) 0 gm TOP QSHIFT [facility] Last Admin: 11/02/16 05:40 Dose: 1 applic Epoetin Maxwell (Procrit) 10,000 unit IV TTS [facility] Last Admin: 11/01/16 10:25 Dose: 10,000 unit Ergocalciferol (Drisdol 50,000 Intl Units Cap) 1 cap PO Q7D [facility] Last Admin: 10/28/16 21:16 Dose: 1 cap Escitalopram Oxalate (Lexapro) 10 mg PO DAILY [facility] Last Admin: 11/02/16 09:50 Dose: 10 mg Ferric Sodium Gluconate Complex (Ferrlecit) 125 mg IVPB TTS [facility] Stop: 11/07/16 16:01 Last Admin: 11/01/16 10:25 Dose: 125 mg Heparin Sodium (Porcine) (Heparin) 2,000 units IVP TuThSa [facility] Last Admin: 11/01/16 10:26 Dose: 2,000 units Hydralazine HCl (Apresoline) 50 mg PO BID [facility] Last Admin: 11/02/16 09:51 Dose: 50 mg Cefepime HCl (Maxipime Iv 1 Gm Premix) 1 gm in 50 mls @ 100 mls/hr IVPB Q24H [facility] Last Admin: 11/01/16 16:45 Dose: 100 mls/hr Insulin Glargine (Lantus) 30 unit SC HS [facility] Last Admin: 11/01/16 22:09 Dose: 30 units Insulin Human Regular (Novolin R) 0 unit SC ACHS ELINA PRN Reason: Protocol Last Admin: 11/02/16 12:23 Dose: 4 unit Latanoprost (Xalatan Opht) 0 ml OD HS [facility] Last Admin: 11/01/16 22:09 Dose: 1 ml Losartan Potassium (Cozaar) 50 mg PO Q24H [facility] Last Admin: 11/01/16 17:54 Dose: 50 mg Megestrol Acetate (Megace) 400 mg PO DAILY [facility] Last Admin: 11/02/16 09:51 Dose: 400 mg Metoclopramide HCl (Reglan) 10 mg IVP ACHS PRN PRN Reason: Nausea/Vomiting Last Admin: 10/28/16 11:08 Dose: 10 mg Ondansetron HCl (Zofran Inj) 4 mg IVP 0730,1130,1630,2200 [facility] Last Admin: 11/02/16 12:23 Dose: 4 mg Pantoprazole Sodium (Protonix Ec Tab) 40 mg PO DAILY [facility] Last Admin: 11/02/16 09:50 Dose: 40 mg Polyethylene Glycol (Miralax) 17 gm PO DAILY [facility] Stop: 11/03/16 19:01 Last Admin: 11/02/16 09:52 Dose: 17 gm Rosuvastatin Calcium (Crestor) 10 mg PO HS [facility] Last Admin: 11/01/16 22:11 Dose: 10 mg Sevelamer Carbonate (Renvela) 0.8 gm PO TIDCC [facility] Last Admin: 11/02/16 12:22 Dose: 0.8 gm Tramadol HCl (Ultram) 25 mg PO Q6H PRN PRN Reason: PAIN 1-10 Last Admin: 11/01/16 23:55 Dose: 25 mg Vitamin B Complex/Vit C/Folic Acid (Nephro-Alonzo) 1 tab PO DAILY [facility] Last Admin: 11/02/16 09:50 Dose: 1 tab - Labs Labs: 11/02/16 08:06 11/02/16 08:06 PT 11.3 SECONDS (9.7-12.2) 10/30/16 06:02 INR 1.0 10/30/16 06:02 APTT 28 SECONDS (21-34) 10/30/16 06:02 - Constitutional Appears: Non-toxic, Chronically Ill - Head Exam Head Exam: NORMOCEPHALIC - Eye Exam Eye Exam: PERRL. absent: Scleral icterus - ENT Exam ENT Exam: Mucous Membranes Dry - Neck Exam Neck Exam: absent: Lymphadenopathy - Respiratory Exam Respiratory Exam: Decreased Breath Sounds, Rhonchi - Cardiovascular Exam Cardiovascular Exam: REGULAR RHYTHM, +S1, +S2 - GI/Abdominal Exam GI & Abdominal Exam: Distended, Soft. absent: Tenderness - Rectal Exam Rectal Exam: Deferred - Exam Exam: NORMAL INSPECTION - Extremities Exam Extremities Exam: absent: Pedal Edema - Back Exam Back Exam: absent: CVA tenderness (L), CVA tenderness (R) - Neurological Exam Neurological Exam: Alert, Awake, Oriented x3 - Psychiatric Exam Psychiatric exam: Normal Mood Assessment and Plan (1) Cellulitis of foot Status: Acute (2) Foot ulcer Status: Acute (3) Peripheral vascular disease Status: Acute (4) NAVEEN (acute kidney injury) Status: Acute (5) Accelerated hypertension Status: Acute (6) Acute exacerbation of CHF (congestive heart failure) Status: Acute (7) CKD (chronic kidney disease) stage 3, GFR 30-59 ml/min Status: Chronic (8) DM2 (diabetes mellitus, type 2) Status: Chronic (9) Dyslipidemia Status: Chronic (10) IDDM (insulin dependent diabetes mellitus) Status: Chronic
[2016-11-02] MEDS: Cefepime IV 1 gm in Dextrose 1 GM/50 ML BAG IVPB SCH (16:12)
[2016-11-02] MEDS: (Lantus) Insulin Glargine, Recombinant SC SCH (21:37)
[2016-11-02] MEDS: Latanoprost 2.5 ml Opht Soln OD SCH (21:39)
[2016-11-02] MEDS: Acetylcysteine 20% Inhal Soln (4ml) PO SCH (23:36)
[2016-11-03] MEDS: Clotrimazole 1% Cream(30 gm) TOP SCH ×3 (05:56→21:32)
[2016-11-03 06:59] LABS: BASO # 0.1 K/uL (0.0-0.2); BASO % 0.7 % (0.0-2.0); EOS # 0.5 K/uL (0.0-0.7); EOS % 3.8 % (0.0-4.0); LYMPH # 1.7 K/uL (1.0-4.3); LYMPH % 12.6 % (20.0-40.0); MEAN CORPUSCULAR HEMOGLOBIN 28.7 pg (27.0-31.0); MEAN CORPUSCULAR HGB CONC 32.2 g/dL (33.0-37.0); MEAN PLATELET VOLUME 9.8 fL (7.2-11.7); MONO # 1.5 K/uL (0.0-0.8); MONO % 10.8 % (0.0-10.0); NRBC % 0.1 % (0.0-2.0); RED CELL DISTRIBUTION WIDTH 13.3 % (11.5-14.5); WHITE BLOOD COUNT 13.5 K/uL (4.8-10.8)
[2016-11-03 07:12] LABS: POTASSIUM 4.2 mmol/L (3.6-5.2)
--- NOTE | 2016-11-03 07:13 | CP.PCM.PN ---
Subjective - Date & Time of Evaluation Date of Evaluation: 11/03/16 Time of Evaluation: 07:10 - Subjective Subjective: Dr. Myrick progress notes: Patient is seen and examined at bedside. Nursing reports no acute events overnight. She is NPO this AM for OR with Dr. Melendez. Pt states the pain in her left foot is is well-controlled at this time. She just c/o being hungry before her procedure. Pt feels better after having large BM after enema yesterday. She denies chest pain, abdominal pain, n/v/d. Objective - Vital Signs/Intake and Output Vital Signs (last 24 hours): Temp Pulse Resp BP Pulse Ox 98.7 F 81 20 148/63 96 11/02/16 23:00 11/03/16 00:15 11/02/16 23:00 11/02/16 23:00 11/02/16 23:00 Intake and Output: 11/03/16 11/03/16 06:59 18:59 Intake Total 100 Balance 100 - Medications Medications: Current Medications Acetylcysteine (Acetylcysteine 20%) 6 ml PO BID [facility] Last Admin: 11/02/16 23:36 Dose: 6 ml Ascorbic Acid (Vitamin C 500 Mg Tab) 500 mg PO DAILY [facility] Last Admin: 11/02/16 09:50 Dose: 500 mg Brimonidine Tartrate (Alphagan 0.2% Opht) 0 ml OD TID [facility] Last Admin: 11/02/16 18:01 Dose: 1 drop Clotrimazole (Lotrimin 1%) 0 gm TOP QSHIFT [facility] Last Admin: 11/03/16 05:56 Dose: 1 applic Epoetin Maxwell (Procrit) 10,000 unit IV TTS [facility] Last Admin: 11/01/16 10:25 Dose: 10,000 unit Ergocalciferol (Drisdol 50,000 Intl Units Cap) 1 cap PO Q7D [facility] Last Admin: 10/28/16 21:16 Dose: 1 cap Escitalopram Oxalate (Lexapro) 10 mg PO DAILY [facility] Last Admin: 11/02/16 09:50 Dose: 10 mg Ferric Sodium Gluconate Complex (Ferrlecit) 125 mg IVPB TTS [facility] Stop: 11/07/16 16:01 Last Admin: 11/01/16 10:25 Dose: 125 mg Heparin Sodium (Porcine) (Heparin) 2,000 units IVP TuThSa [facility] Last Admin: 11/01/16 10:26 Dose: 2,000 units Hydralazine HCl (Apresoline) 50 mg PO BID [facility] Last Admin: 11/02/16 17:58 Dose: 50 mg Cefepime HCl (Maxipime Iv 1 Gm Premix) 1 gm in 50 mls @ 100 mls/hr IVPB Q24H [facility] Last Admin: 11/02/16 16:12 Dose: 100 mls/hr Insulin Glargine (Lantus) 30 unit SC HS [facility] Last Admin: 11/02/16 21:37 Dose: 30 units Insulin Human Regular (Novolin R) 0 unit SC ACHS [facility] PRN Reason: Protocol Last Admin: 11/02/16 21:31 Dose: Not Given Latanoprost (Xalatan Opht) 0 ml OD [facility] Last Admin: 11/02/16 21:39 Dose: 2.5 ml Losartan Potassium (Cozaar) 50 mg PO Q24H [facility] Last Admin: 11/02/16 17:58 Dose: 50 mg Megestrol Acetate (Megace) 400 mg PO DAILY [facility] Last Admin: 11/02/16 09:51 Dose: 400 mg Metoclopramide HCl (Reglan) 10 mg IVP ACHS PRN PRN Reason: Nausea/Vomiting Last Admin: 10/28/16 11:08 Dose: 10 mg Ondansetron HCl (Zofran Inj) 4 mg IVP 0730,1130,1630,2200 [facility] Last Admin: 11/02/16 21:37 Dose: 4 mg Pantoprazole Sodium (Protonix Ec Tab) 40 mg PO DAILY [facility] Last Admin: 11/02/16 09:50 Dose: 40 mg Polyethylene Glycol (Miralax) 17 gm PO DAILY [facility] Stop: 11/03/16 19:01 Last Admin: 11/02/16 09:52 Dose: 17 gm Rosuvastatin Calcium (Crestor) 10 mg PO HS [facility] Last Admin: 11/02/16 21:37 Dose: 10 mg Sevelamer Carbonate (Renvela) 0.8 gm PO TIDCC [facility] Last Admin: 11/02/16 16:12 Dose: 0.8 gm Tramadol HCl (Ultram) 25 mg PO Q6H PRN PRN Reason: PAIN 1-10 Last Admin: 11/01/16 23:55 Dose: 25 mg Vitamin B Complex/Vit C/Folic Acid (Nephro-Alonzo) 1 tab PO DAILY [facility] Last Admin: 11/02/16 09:50 Dose: 1 tab - Labs Labs: 11/03/16 06:51 11/02/16 08:06 PT 11.3 SECONDS (9.7-12.2) 10/30/16 06:02 INR 1.0 10/30/16 06:02 APTT 28 SECONDS (21-34) 10/30/16 06:02 - Additional Findings Additional findings: - Constitutional Appears: Non-toxic, No Acute Distress - Eye Exam Eye Exam: EOMI - ENT Exam ENT Exam: Mucous Membranes Moist - Neck Exam Additional comments: right sided dialysis catheter - Respiratory Exam Respiratory Exam: NORMAL BREATHING PATTERN. absent: Rales, Rhonchi, Wheezes - Cardiovascular Exam Cardiovascular Exam: +S1, +S2 - GI/Abdominal Exam GI & Abdominal Exam: Soft, Normal Bowel Sounds. absent: Tenderness - Extremities Exam Extremities Exam: Pedal Edema (improved) Additional comments: left foot ulcer with santyl applied - Neurological Exam Neurological Exam: Alert, Awake - Psychiatric Exam Psychiatric exam: Normal Affect - Skin Assessment and Plan - Assessment and Plan (Free Text) Plan: CKD Stage IV 11/03: Patient for permacath placement with Dr. Melendez - Hepatitis C - negative, ready for placement to dialysis center -Cr 3.8 today -as per nephrology diuretics on hold -Acetylcysteine 6ml po bid -Ascorbic acid 500mg po daily -Renvela 0.8gm po TIDCC -Drisdol 50,000 1 cap po q7days -Nephrovite 1 tab po daily -Renal u/s: medical renal disease, right kidney with nonobstructing 0.5cm stone -Nephrology: Dr Ambrose consulted Left lateral foot ulcer 11/01: Surgery scheduled for Friday 11/[address] Amin, continue physical therapy, wound care. likely Velazco stage 2 diabetic foot ulcer without infection/ischemia vs ulcer secondary to PAD -Left heel x-ray: limited visualization of anterior calcaneus. No acute displaced fracture. -Arterial PVR/SEG: Right negative; Left secerely decreased perfusion of the LLE noted at superficial, popliteal, and tibial A levels -LE Arterial scan: R possible occlusion of R posterior tibial A [50-75% stenosis of right mid popliteal A]; L possible occlusion of L proximal and sital posterior and proximal anterior tibial arteries; greater than 75% stenosis of the left distal superficial femoral and mid popliteal arteries; 50- 75% stenosis of L proximal poplitearl artery; recommend angiogram with endovascular repair - MRI (10/27/16): No evidence of signal abnormality noted at tibiotalar, subtalar , calcalneonavicular joint spaces, with jt space narrowing and osteophyte formation. Focal signal abnormalities seen on anterior aspect of taus, and lateral aspect of middle cuneiform which may represent osteochondral change. Plantar calcaneal spurring with mild plantar fascitis. 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 Focal signal abnormality on medial aspect of talus near insertion of deltoid ligamentsuggestive of bone brusing vs. subchondral osseous injury (see full report) -blood culture (10/26/16) no growth x 24 hours -wound culture (10/22/16): serratia marcescens, corynebacterium species - Cefepime 1gm Q24H IV (started 10/26/16, Day 5) -Tramadol 25mg po q6 PRN pain -Tylenol with codeine 1 po q6 PRN pain -Venous dopplers negative b/l -Physical therapy -Wound care -ID: Dr Wellington consulted -IR : Dr Roman consulted -Surgery: Dr Melendez consulted Tinea Pedis -Clotrimazole topical every shift Peripheral Arterial Disease -Angiogram pending renal function improvement vs dialysis -Arterial PVR/SEG: Right negative; Left secerely decreased perfusion of the LLE noted at superficial, popliteal, and tibial A levels -LE Arterial scan: R possible occlusion of R posterior tibial A [50-75% stenosis of right mid popliteal A]; L possible occlusion of L proximal and sital posterior and proximal anterior tibial arteries; greater than 75% stenosis of the left distal superficial femoral and mid popliteal arteries; 50- 75% stenosis of L proximal poplitearl artery; recommend angiogram with endovascular repair - Discontinued Pletal 50mg po bid per Nephro reccs -IR: Dr. Roman consulted HTN Elevated - Hydralazine 50mg po bid - Restart home STEVEN: Losartan 50mg PO Daily - HCTZ 25mg po daily Glaucoma -Alphagan 0.2% 0ml OD TID -Xalatan OD HS CAD -Hydralazine 50mg po bid -restart home STEVEN: Losartan 50mg PO Daily -Crestor 10mg po hs -Lipid panel TG 248 Cholesterol 217 LDL 113 HDL 39 DM2 -RISS high dose -Accucheck ACHS -Lantus 30U SC HS -HgbA1c 12.2 Anxiety and depression -Xanax 0.25mg po q8 prn -Lexapro 10mg po daily Anemia of chronic disease -H&H on admission is 10.2 and 30.9 - CBC (10/29/16): 8.9/27.4 -Monitor for acute changes -Dr. Ambrose nephrology consulted Chronic LBP -no acute complaints on admission -Monitor CHF -As per medical records patient has hx of CHF -Echo in 2016 in medical records is unremarkable with normal EF -Echo 10/23/16: small to moderate circumferential pericardial effusion. No evidence of tamponade. The LV systolic function is normal. Elevated LA pressure. RV systolic function is normal. There is a trace aortic regurgitation. Mild mitral regurgitation. There is mild to moderate tricuspid regurgitation. RV systolic pressure is estimated at ~44mmHg compatible with mild pulmonary HTN PPX -Heparin 2000u IVP MWF -Protonix 40mg po daily -Zofran 4mg IVP (1/2 hr before meals, once at bed time) -renal diet -SCDs c/i -PT
[2016-11-03 07:14] LABS: ALB/GLOB RATIO 1.1 (1.0-2.1); BILIRUBIN,TOTAL 0.5 mg/dL (0.2-1.3); TOTAL PROTEIN 5.7 g/dL (6.3-8.3)
[2016-11-03 07:15] LABS: CALCIUM 8.1 mg/dl (8.6-10.4); PHOSPHOROUS 2.8 mg/dL (2.5-4.5)
[2016-11-03] MEDS: (Novolin R) Insulin Human Regular 100 units/ml vial SC SCH ×4 (07:20→23:50)
[2016-11-03] MEDS: Sevelamer Carb 0.8 gm/Packet PO SCH ×3 (08:12→17:00)
--- NOTE | 2016-11-03 09:18 | VASCLAB ---
PROCEDURE: Upper Extremity Venous Duplex Exam HISTORY: Vein Mapping for AV fistula PRIORS: None. TECHNIQUE: Bilateral upper extremity, internal jugular, subclavian, axillary, brachial, ulnar, radial, basilic and upper cephalic veins were evaluated. Flow was assessed with color Doppler, compressibility, assessment of phasic flow and augmentation response. Report prepared by ANGELA Barkley, RVT FINDINGS: RIGHT: 1. Internal Jugular Vein: Compressibility - Fully compressible: Thrombus - None : Flow - Phasic 2. Subclavian Vein:Compressibility - Fully compressible: Thrombus - None : Flow - Phasic 3. Axillary Vein: Compressibility - Fully compressible: Thrombus - None 4. Brachial Vein: Compressibility - Fully compressible: Thrombus - None 5. Ulnar Vein:Compressibility - Fully compressible: Thrombus - None 6. Radial Vein:Compressibility - Fully compressible: Thrombus - None 7. Cephalic Vein: Compressibility - Fully compressible: thrombus - None 7.1. Upper Arm: Proximal Diameter: 0.32cm. Mid Diameter: 0.29cm. Distal Diameter: 0.31cm. Antecubital Fossa: 0.54cm. 7.2. Forearm: Proximal Diameter: 0.25cm. Mid Diameter:0.33cm. Distal Diameter: 0.23cm 8. Basilic Vein:Compressibility - Fully compressible: thrombus - None 8.1. Upper Arm:Proximal Diameter: 0.38cm. Mid Diameter: 0.47cm. Distal Diameter: 0.50cm. Antecubital Fossa: 0.49cm. 8.2. Forearm: Proximal Diameter: 0.30cm. Mid Diameter:0.31cm. Distal Diameter: 0.24cm. LEFT: 1. Internal Jugular Vein: Compressibility - Fully compressible: Thrombus - None : Flow - Phasic 2. Subclavian Vein:Compressibility - Fully compressible: Thrombus - None : Flow - Phasic 3. Axillary Vein: Compressibility - Fully compressible: Thrombus - None 4. Brachial Vein: Compressibility - Fully compressible: Thrombus - None 5. Ulnar Vein:Compressibility - Fully compressible: Thrombus - None 6. Radial Vein:Compressibility - Fully compressible: Thrombus - None 7. Cephalic Vein: Compressibility - Fully compressible: thrombus - None 7.1. Upper Arm: Proximal Diameter: 0.27cm. Mid Diameter: 0.25cm. Distal Diameter: 0.31cm. Antecubital Fossa: 0.45cm. 7.2. Forearm: Proximal Diameter: 0.25cm. Mid Diameter:0.24cm. Distal Diameter: 0.17cm 8. Basilic Vein:Compressibility - Fully compressible: thrombus - None 8.1. Upper Arm:Proximal Diameter: 0.38cm. Mid Diameter: 0.46cm. Distal Diameter: 0.43cm. Antecubital Fossa: 0.39cm. 8.2. Forearm: Proximal Diameter: 0.37cm. Mid Diameter:0.29cm. Distal Diameter: 0.28cm. OTHER FINDINGS: Right: None. Left: None. IMPRESSION: Right: Diameter measurements of the right cephalic vein is measured between 0.23 cm and 0.54 cm and basilic vein is measured between 0.24 cm and 0.50 cm. Left: Diameter measurements of the left cephalic vein is measured between 0.17 cm and 0.45 cm and basilic vein is measured between 0.28cm and 0.46cm.
[2016-11-03] MEDS: Acetylcysteine 20% Inhal Soln (4ml) PO SCH ×2 (11:07→18:00)
[2016-11-03] MEDS: Brimonidine 0.2% Opth Sol (5ml) OD SCH ×3 (11:07→18:00)
[2016-11-03] MEDS: Pantoprazole 40 mg EC Tab PO SCH (11:08)
[2016-11-03] MEDS: Multivitamin Vitamin B Complex (Nephro-Vite) Tab PO SCH (11:08)
[2016-11-03] MEDS: Megestrol Acetate 40 mg/ml Cup PO SCH ×2 (11:08→11:13)
[2016-11-03] MEDS: POLYETHYLENE GLYCOL 3350 17 GM/Dose PACKET PO SCH (11:13)
[2016-11-03] MEDS ORDERED: Dextrose 5%/0.9% NS 1,000 ML IV SCH (12:15)
[2016-11-03] MEDS ORDERED: ceFAZolin IV 1 gm in Dextrose 1 GM/50 ML BAG IVPB ONE ×2 (13:03→13:58)
[2016-11-03] MEDS ORDERED: HEPARIN-NS 5,000 UNITS/500 ML 5,000 UNIT/500 ML BAG IV ONE (13:03)
[2016-11-03] MEDS ORDERED: Lactated Ringer's 1,000 ML IV ONE ×2 (13:54)
[2016-11-03] MEDS ORDERED: Midazolam 2 MG/2 ML VIAL ONE (14:04)
[2016-11-03] MEDS ORDERED: Propofol 10 mg/ml Inj (20 ML) ONE (14:04)
[2016-11-03] MEDS ORDERED: Sodium Chloride 0.9% 1,000 ML IV ONE (14:17)
[2016-11-03] MEDS ORDERED: Neostigmine Methylsulfate 3mg/3ml Syringe IV ONE (15:25)
[2016-11-03] MEDS: Cefepime IV 1 gm in Dextrose 1 GM/50 ML BAG IVPB SCH ×2 (16:15→21:16)
[2016-11-03] MEDS ORDERED: HYDROmorphone 0.5 mg/0.5 ml ISec IVP PRN (16:36)
[2016-11-03] MEDS ORDERED: HYDROmorphone 0.5 mg/0.5 ml ISec ONE ×2 (17:13→17:50)
--- NOTE | 2016-11-03 20:18 | OP ---
PROCEDURE DATE: 11/03/2016 PREOPERATIVE DIAGNOSIS: Chronic renal failure. POSTOPERATIVE DIAGNOSIS: Chronic renal failure. PROCEDURE PERFORMED: Left arm basilic vein transposition. SURGEON: Sergio Melendez MD ANESTHESIA: General. BLOOD LOSS: 50 mL. POSTOPERATIVE CONDITION: Stable. INDICATIONS FOR SURGERY: This is a 71-year-old female with chronic renal failure, who will now under go placement of an AV fistula for chronic hemodialysis treatment. PROCEDURE: The patient taken to the operating room. General anesthesia administered and the left sh oulder, arm, and forearm were prepped and draped. An incision was made from the axilla to the antecu bital fossa and the basilic vein was completely dissected free and transected proximally. All branch es were ligated with 4-0 silk and it was flushed with heparinized saline, marked, and found to be katie quate. During this maneuver, there was bleeding noted from the brachial vein, and which was repaired by 6-0 Prolene. Next, the distal wounds were irrigated and mobilized, and utilizing adjacent tissue, adjacent tissue transfer closure of greater than 30 square cm. They were closed with multiple layers of Monocryl, galindo bcuticular Monocryl, and skin clips. The proximal wound was left open. A large Janny clamp was tunn eled into the proximal wound and the graft was bored into the brachial wound after an incision was ma de over the brachial artery. It was dissected free and looped. The anastomosis was accomplished usi ng 6-0 Prolene suture. A modified endarterectomy of the brachial artery had to be performed prior to anastomosis. There was a good thrill in the graft at the conclusion of procedure. The remaining wo unds were closed with simple closure and clips. The patient tolerated procedure well, returned to re covery room in stable condition. Sergio Melendez MD cc: [id number] TT: 11/03/2016 20:18:15 dn
[2016-11-03] MEDS: Latanoprost 2.5 ml Opht Soln OD SCH (21:20)
[2016-11-03] MEDS: (Lantus) Insulin Glargine, Recombinant SC SCH (22:21)
--- NOTE | 2016-11-03 23:39 | CP.PCM.PN ---
Subjective - Date & Time of Evaluation Date of Evaluation: 11/03/16 Time of Evaluation: 15:00 - Subjective Subjective: SEEN ON RENAL F/U S/P AVF DONE BY DR COYLE ON HD M W F FEELS IMPROVED Objective - Vital Signs/Intake and Output Vital Signs (last 24 hours): Temp Pulse Resp BP Pulse Ox 99 F 106 H 20 135/66 99 11/03/16 19:00 11/03/16 19:00 11/03/16 19:00 11/03/16 19:00 11/03/16 19:00 Intake and Output: 11/03/16 11/04/16 18:59 06:59 Intake Total 160 Balance 160 - Medications Medications: Current Medications Acetylcysteine (Acetylcysteine 20%) 6 ml PO BID [facility] Last Admin: 11/03/16 18:00 Dose: Not Given Ascorbic Acid (Vitamin C 500 Mg Tab) 500 mg PO DAILY [facility] Last Admin: 11/03/16 11:08 Dose: 500 mg Brimonidine Tartrate (Alphagan 0.2% Opht) 0 ml OD TID [facility] Last Admin: 11/03/16 18:00 Dose: Not Given Clotrimazole (Lotrimin 1%) 0 gm TOP QSHIFT [facility] Last Admin: 11/03/16 21:32 Dose: 1 applic Epoetin Maxwell (Procrit) 10,000 unit IV TTS [facility] Last Admin: 11/01/16 10:25 Dose: 10,000 unit Ergocalciferol (Drisdol 50,000 Intl Units Cap) 1 cap PO Q7D [facility] Last Admin: 10/28/16 21:16 Dose: 1 cap Escitalopram Oxalate (Lexapro) 10 mg PO DAILY [facility] Last Admin: 11/03/16 11:08 Dose: 10 mg Ferric Sodium Gluconate Complex (Ferrlecit) 125 mg IVPB TTS [facility] Stop: 11/07/16 16:01 Last Admin: 11/01/16 10:25 Dose: 125 mg Heparin Sodium (Porcine) (Heparin) 2,000 units IVP TuThSa [facility] Last Admin: 11/01/16 10:26 Dose: 2,000 units Hydralazine HCl (Apresoline) 50 mg PO BID [facility] Last Admin: 11/03/16 18:00 Dose: Not Given Cefepime HCl (Maxipime Iv 1 Gm Premix) 1 gm in 50 mls @ 100 mls/hr IVPB Q24H [facility] Last Admin: 11/03/16 21:16 Dose: 100 mls/hr Insulin Glargine (Lantus) 30 unit SC HS [facility] Last Admin: 11/03/16 22:21 Dose: Not Given Insulin Human Regular (Novolin R) 0 unit SC ACHS [facility] PRN Reason: Protocol Last Admin: 11/03/16 16:30 Dose: Not Given Latanoprost (Xalatan Opht) 0 ml OD HS [facility] Last Admin: 11/03/16 21:20 Dose: 1 ml Losartan Potassium (Cozaar) 50 mg PO Q24H [facility] Last Admin: 11/03/16 21:19 Dose: 50 mg Megestrol Acetate (Megace) 400 mg PO DAILY [facility] Last Admin: 11/03/16 11:13 Dose: Not Given Metoclopramide HCl (Reglan) 10 mg IVP ACHS PRN PRN Reason: Nausea/Vomiting Last Admin: 10/28/16 11:08 Dose: 10 mg Ondansetron HCl (Zofran Inj) 4 mg IVP 0730,1130,1630,2200 [facility] Last Admin: 11/03/16 21:24 Dose: 4 mg Pantoprazole Sodium (Protonix Ec Tab) 40 mg PO DAILY [facility] Last Admin: 11/03/16 11:08 Dose: 40 mg Rosuvastatin Calcium (Crestor) 10 mg PO HS [facility] Last Admin: 11/03/16 21:19 Dose: 10 mg Sevelamer Carbonate (Renvela) 0.8 gm PO TIDCC [facility] Last Admin: 11/03/16 17:00 Dose: Not Given Tramadol HCl (Ultram) 25 mg PO Q6H PRN PRN Reason: PAIN 1-10 Last Admin: 11/01/16 23:55 Dose: 25 mg Tramadol HCl (Ultram) 50 mg PO TID PRN PRN Reason: Pain, Mild (1-3) Last Admin: 11/03/16 21:17 Dose: 50 mg Vitamin B Complex/Vit C/Folic Acid (Nephro-Alonzo) 1 tab PO DAILY [facility] Last Admin: 11/03/16 11:08 Dose: 1 tab - Labs Labs: 11/03/16 06:51 11/03/16 06:51 PT 11.3 SECONDS (9.7-12.2) 10/30/16 06:02 INR 1.0 10/30/16 06:02 APTT 28 SECONDS (21-34) 10/30/16 06:02 Assessment and Plan - Assessment and Plan (Free Text) Assessment: ESRD ON HD M W F ANEMIA OF CKD .. H/H BETTER S/P L LEG ANGIOPLASTY S/P AVF CREAION P : C/O CURRENT CARE
[2016-11-04] MEDS: Clotrimazole 1% Cream(30 gm) TOP SCH (06:03)
--- NOTE | 2016-11-04 07:10 | CP.PCM.PN ---
Subjective - Date & Time of Evaluation Date of Evaluation: 11/04/16 Time of Evaluation: 07:06 - Subjective Subjective: Dr. Myrick progress note: Patient is seen and examined at bedside. Nursing reports no acute events overnight. She is POD#1, after AVF with Dr. Melendez yesterday. Pt is for dialysis today. She reports feeling better since admission. She is marked for discharge for today. She denies chest pain, shortness of breath, abdominal pain , N/V/D/C. Objective - Vital Signs/Intake and Output Vital Signs (last 24 hours): Temp Pulse Resp BP Pulse Ox 99.4 F 105 H 20 146/69 98 11/03/16 23:45 11/03/16 23:45 11/03/16 23:45 11/03/16 23:45 11/03/16 23:45 - Medications Medications: Current Medications Acetylcysteine (Acetylcysteine 20%) 6 ml PO BID [facility] Last Admin: 11/03/16 18:00 Dose: Not Given Ascorbic Acid (Vitamin C 500 Mg Tab) 500 mg PO DAILY [facility] Last Admin: 11/03/16 11:08 Dose: 500 mg Brimonidine Tartrate (Alphagan 0.2% Opht) 0 ml OD TID [facility] Last Admin: 11/03/16 18:00 Dose: Not Given Clotrimazole (Lotrimin 1%) 0 gm TOP QSHIFT [facility] Last Admin: 11/04/16 06:03 Dose: 1 applic Epoetin Maxwell (Procrit) 10,000 unit IV TTS [facility] Last Admin: 11/01/16 10:25 Dose: 10,000 unit Ergocalciferol (Drisdol 50,000 Intl Units Cap) 1 cap PO Q7D [facility] Last Admin: 10/28/16 21:16 Dose: 1 cap Escitalopram Oxalate (Lexapro) 10 mg PO DAILY [facility] Last Admin: 11/03/16 11:08 Dose: 10 mg Ferric Sodium Gluconate Complex (Ferrlecit) 125 mg IVPB TTS [facility] Stop: 11/07/16 16:01 Last Admin: 11/01/16 10:25 Dose: 125 mg Heparin Sodium (Porcine) (Heparin) 2,000 units IVP TuThSa [facility] Last Admin: 11/01/16 10:26 Dose: 2,000 units Hydralazine HCl (Apresoline) 50 mg PO BID [facility] Last Admin: 11/03/16 18:00 Dose: Not Given Cefepime HCl (Maxipime Iv 1 Gm Premix) 1 gm in 50 mls @ 100 mls/hr IVPB Q24H [facility] Last Admin: 11/03/16 21:16 Dose: 100 mls/hr Insulin Glargine (Lantus) 30 unit SC HS [facility] Last Admin: 11/03/16 22:21 Dose: Not Given Insulin Human Regular (Novolin R) 0 unit SC ACHS [facility] PRN Reason: Protocol Last Admin: 11/03/16 23:50 Dose: Not Given Latanoprost (Xalatan Opht) 0 ml OD HS [facility] Last Admin: 11/03/16 21:20 Dose: 1 ml Losartan Potassium (Cozaar) 50 mg PO Q24H [facility] Last Admin: 11/03/16 21:19 Dose: 50 mg Megestrol Acetate (Megace) 400 mg PO DAILY [facility] Last Admin: 11/03/16 11:13 Dose: Not Given Metoclopramide HCl (Reglan) 10 mg IVP ACHS PRN PRN Reason: Nausea/Vomiting Last Admin: 10/28/16 11:08 Dose: 10 mg Ondansetron HCl (Zofran Inj) 4 mg IVP 0730,1130,1630,2200 [facility] Last Admin: 11/04/16 06:34 Dose: 4 mg Pantoprazole Sodium (Protonix Ec Tab) 40 mg PO DAILY [facility] Last Admin: 11/03/16 11:08 Dose: 40 mg Rosuvastatin Calcium (Crestor) 10 mg PO HS [facility] Last Admin: 11/03/16 21:19 Dose: 10 mg Sevelamer Carbonate (Renvela) 0.8 gm PO TIDCC [facility] Last Admin: 11/03/16 17:00 Dose: Not Given Tramadol HCl (Ultram) 25 mg PO Q6H PRN PRN Reason: PAIN 1-10 Last Admin: 11/01/16 23:55 Dose: 25 mg Tramadol HCl (Ultram) 50 mg PO TID PRN PRN Reason: Pain, Mild (1-3) Last Admin: 11/03/16 21:17 Dose: 50 mg Vitamin B Complex/Vit C/Folic Acid (Nephro-Alonzo) 1 tab PO DAILY ELINA Last Admin: 11/03/16 11:08 Dose: 1 tab - Labs Labs: 11/03/16 06:51 11/03/16 06:51 PT 11.3 SECONDS (9.7-12.2) 10/30/16 06:02 INR 1.0 10/30/16 06:02 APTT 28 SECONDS (21-34) 10/30/16 06:02 - Additional Findings Additional findings: - Constitutional Appears: Non-toxic, No Acute Distress - Eye Exam Eye Exam: EOMI - ENT Exam ENT Exam: Mucous Membranes Moist - Neck Exam Additional comments: right sided dialysis catheter - Respiratory Exam Respiratory Exam: NORMAL BREATHING PATTERN. absent: Rales, Rhonchi, Wheezes - Cardiovascular Exam Cardiovascular Exam: +S1, +S2 - GI/Abdominal Exam GI & Abdominal Exam: Soft, Normal Bowel Sounds. absent: Tenderness - Extremities Exam Extremities Exam: Pedal Edema (improved) Additional comments: left foot ulcer with santyl applied - Neurological Exam Neurological Exam: Alert, Awake - Psychiatric Exam Psychiatric exam: Normal Affect - Skin - Dry, warm, intact Assessment and Plan - Assessment and Plan (Free Text) Plan: CKD Stage IV 11/03: Patient s/p AVF with Dr. Melendez - Hepatitis C - negative, ready for placement to dialysis center -Cr 3.8 today -as per nephrology diuretics on hold -Acetylcysteine 6ml po bid -Ascorbic acid 500mg po daily -Renvela 0.8gm po TIDCC -Drisdol 50,000 1 cap po q7days -Nephrovite 1 tab po daily -Renal u/s: medical renal disease, right kidney with nonobstructing 0.5cm stone -Nephrology: Dr Ambrose consulted Left lateral foot ulcer 11/04: Continue physical therapy, wound care. likely Velazco stage 2 diabetic foot ulcer without infection/ischemia vs ulcer secondary to PAD -Left heel x-ray: limited visualization of anterior calcaneus. No acute displaced fracture. -Arterial PVR/SEG: Right negative; Left secerely decreased perfusion of the LLE noted at superficial, popliteal, and tibial A levels -LE Arterial scan: R possible occlusion of R posterior tibial A [50-75% stenosis of right mid popliteal A]; L possible occlusion of L proximal and sital posterior and proximal anterior tibial arteries; greater than 75% stenosis of the left distal superficial femoral and mid popliteal arteries; 50- 75% stenosis of L proximal poplitearl artery; recommend angiogram with endovascular repair - MRI (10/27/16): No evidence of signal abnormality noted at tibiotalar, subtalar , calcalneonavicular joint spaces, with jt space narrowing and osteophyte formation. Focal signal abnormalities seen on anterior aspect of taus, and lateral aspect of middle cuneiform which may represent osteochondral change. Plantar calcaneal spurring with mild plantar fascitis. 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 Focal signal abnormality on medial aspect of talus near insertion of deltoid ligamentsuggestive of bone brusing vs. subchondral osseous injury (see full report) -blood culture (10/26/16) no growth x 24 hours -wound culture (10/22/16): serratia marcescens, corynebacterium species - Cefepime 1gm Q24H IV (started 10/26/16, Day 5) -Tramadol 25mg po q6 PRN pain -Tylenol with codeine 1 po q6 PRN pain -Venous dopplers negative b/l -Physical therapy -Wound care -ID: Dr Wellington consulted -IR : Dr Roman consulted -Surgery: Dr Melendez consulted Tinea Pedis -Clotrimazole topical every shift Peripheral Arterial Disease -Angiogram pending renal function improvement vs dialysis -Arterial PVR/SEG: Right negative; Left secerely decreased perfusion of the LLE noted at superficial, popliteal, and tibial A levels -LE Arterial scan: R possible occlusion of R posterior tibial A [50-75% stenosis of right mid popliteal A]; L possible occlusion of L proximal and sital posterior and proximal anterior tibial arteries; greater than 75% stenosis of the left distal superficial femoral and mid popliteal arteries; 50- 75% stenosis of L proximal poplitearl artery; recommend angiogram with endovascular repair - Discontinued Pletal 50mg po bid per Nephro reccs -IR: Dr. Roman consulted HTN Elevated - Hydralazine 50mg po bid - Restart home STEVEN: Losartan 50mg PO Daily - HCTZ 25mg po daily Glaucoma -Alphagan 0.2% 0ml OD TID -Xalatan OD HS CAD -Hydralazine 50mg po bid -restart home STEVEN: Losartan 50mg PO Daily -Crestor 10mg po hs -Lipid panel TG 248 Cholesterol 217 LDL 113 HDL 39 DM2 -RISS high dose -Accucheck ACHS -Lantus 30U SC HS -HgbA1c 12.2 Anxiety and depression -Xanax 0.25mg po q8 prn -Lexapro 10mg po daily Anemia of chronic disease -H&H on admission is 10.2 and 30.9 - CBC (10/29/16): 8.9/27.4 -Monitor for acute changes -Dr. Ambrose nephrology consulted Chronic LBP -no acute complaints on admission -Monitor CHF -As per medical records patient has hx of CHF -Echo in 2016 in medical records is unremarkable with normal EF -Echo 10/23/16: small to moderate circumferential pericardial effusion. No evidence of tamponade. The LV systolic function is normal. Elevated LA pressure. RV systolic function is normal. There is a trace aortic regurgitation. Mild mitral regurgitation. There is mild to moderate tricuspid regurgitation. RV systolic pressure is estimated at ~44mmHg compatible with mild pulmonary HTN PPX -Heparin 2000u IVP MWF -Protonix 40mg po daily -Zofran 4mg IVP (1/2 hr before meals, once at bed time) -renal diet -SCDs c/i -PT
[2016-11-04] MEDS: (Novolin R) Insulin Human Regular 100 units/ml vial SC SCH ×2 (08:11→12:58)
[2016-11-04] MEDS: Tramadol 25 mg PO PRN (08:17)
[2016-11-04] MEDS: Sevelamer Carb 0.8 gm/Packet PO SCH (08:19)
[2016-11-04 08:28] LABS: BASO # 0.1 K/uL (0.0-0.2); BASO % 0.6 % (0.0-2.0); EOS # 0.3 K/uL (0.0-0.7); EOS % 1.8 % (0.0-4.0); HEMATOCRIT 26.5 % (34.0-47.0); LYMPH # 1.4 K/uL (1.0-4.3); LYMPH % 7.5 % (20.0-40.0); MEAN CELL VOLUME 89.1 fL (81.0-99.0); MEAN CORPUSCULAR HEMOGLOBIN 28.1 pg (27.0-31.0); MEAN CORPUSCULAR HGB CONC 31.5 g/dL (33.0-37.0); MEAN PLATELET VOLUME 9.9 fL (7.2-11.7); MONO # 1.6 K/uL (0.0-0.8); MONO % 8.6 % (0.0-10.0); PLATELET COUNT 304 K/uL (130-400); RED CELL DISTRIBUTION WIDTH 13.6 % (11.5-14.5); WHITE BLOOD COUNT 18.5 K/uL (4.8-10.8)
[2016-11-04 08:50] LABS: POTASSIUM 4.9 mmol/L (3.6-5.2)
[2016-11-04 08:52] LABS: BILIRUBIN,TOTAL 0.6 mg/dL (0.2-1.3); PHOSPHOROUS 4.2 mg/dL (2.5-4.5); TOTAL PROTEIN 6.4 g/dL (6.3-8.3)
[2016-11-04 08:53] LABS: CALCIUM 8.8 mg/dl (8.6-10.4); MAGNESIUM 2.2 mg/dL (1.6-2.3)
[2016-11-04 10:50] LABS: EOSINOPHIL 2 % (0-4); NEUTROPHIL 76 % (50-75); TOTAL CELLS COUNTED 100
[2016-11-04] MEDS: Ferric Sodium Gluconat Complex 62.5 mg/5 ml Vial IVPB SCH (11:56)
[2016-11-04] MEDS: Epoetin Alfa 10,000 unit/ml Dialysis IV SCH (11:57)
[2016-11-04 12:49] VITALS: PULSE 96
[2016-11-04] MEDS: Multivitamin Vitamin B Complex (Nephro-Vite) Tab PO SCH (12:59)
[2016-11-04] MEDS: Pantoprazole 40 mg EC Tab PO SCH (13:00)
[2016-11-04] MEDS: Acetylcysteine 20% Inhal Soln (4ml) PO SCH ×2 (13:03→13:07)
[2016-11-04] MEDS: Brimonidine 0.2% Opth Sol (5ml) OD SCH (13:05)
--- NOTE | 2016-11-04 16:15 | CP.PCM.DIS ---
Provider - Provider Date of Admission: 10/21/16 11:20 Attending physician: Benson Myrick Jr, MD Primary care physician: Dr. Myrick Consults: Dr. Ambrose (Nephro) Time Spent in preparation of Discharge (in minutes): 45 Hospital Course - Lab Results Lab Results: Micro Results 10/26/16 14:15 Blood Blood Culture - Final NO GROWTH AFTER 5 DAYS 10/26/16 14:15 Blood Gram Stain - Final TEST NOT PERFORMED 10/26/16 13:46 Blood Blood Culture - Final NO GROWTH AFTER 5 DAYS 10/26/16 13:46 Blood Gram Stain - Final TEST NOT PERFORMED 10/22/16 Unknown Foot - Left Gram Stain - Final 10/22/16 Unknown Foot - Left Wound Culture - Final Serratia Marcescens Corynebacterium Species Most Recent Lab Values WBC 18.5 K/uL (4.8-10.8) H 11/04/16 08:23 RBC 2.97 Mil/uL (3.80-5.20) L 11/04/16 08:23 Hgb 8.4 g/dL (11.0-16.0) L 11/04/16 08:23 Hct 26.5 % (34.0-47.0) L 11/04/16 08:23 MCV 89.1 fL (81.0-99.0) 11/04/16 08:23 MCH 28.1 pg (27.0-31.0) 11/04/16 08:23 MCHC 31.5 g/dL (33.0-37.0) L 11/04/16 08:23 RDW 13.6 % (11.5-14.5) 11/04/16 08:23 Plt Count 304 K/uL (130-400) 11/04/16 08:23 MPV 9.9 fL (7.2-11.7) 11/04/16 08:23 Neut % (Auto) 81.5 % (50.0-75.0) H 11/04/16 08:23 Lymph % (Auto) 7.5 % (20.0-40.0) L 11/04/16 08:23 [place] % (Auto) 8.6 % (0.0-10.0) 11/04/16 08:23 Eos % (Auto) 1.8 % (0.0-4.0) 11/04/16 08:23 Baso % (Auto) 0.6 % (0.0-2.0) 11/04/16 08:23 Neut # 15.1 K/uL (1.8-7.0) H 11/04/16 08:23 Lymph # 1.4 K/uL (1.0-4.3) 11/04/16 08:23 [place] # 1.6 K/uL (0.0-0.8) H 11/04/16 08:23 Eos # 0.3 K/uL (0.0-0.7) 11/04/16 08:23 Baso # 0.1 K/uL (0.0-0.2) 11/04/16 08:23 Neutrophils % (Manual) 76 % (50-75) H 11/04/16 08:23 Band Neutrophils % 3 % (0-2) H 11/04/16 08:23 Lymphocytes % (Manual) 9 % (20-40) L 11/04/16 08:23 Monocytes % (Manual) 10 % (0-10) 11/04/16 08:23 Eosinophils % (Manual) 2 % (0-4) 11/04/16 08:23 Basophils % (Manual) 1 % (0-2) 10/29/16 07:12 Nucleated RBC % 1 % (0-0) H 10/30/16 06:02 Platelet Estimate Normal (NORMAL) 11/04/16 08:23 Plt Clumps, EDTA Present 10/30/16 06:02 RBC Morphology Normal 11/04/16 08:23 Hypochromasia (manual) Slight 10/29/16 07:12 Basophilic Stippling Slight 10/29/16 07:12 Ovalocytes Slight 10/30/16 06:02 PT 11.3 SECONDS (9.7-12.2) 10/30/16 06:02 INR 1.0 10/30/16 06:02 APTT 28 SECONDS (21-34) 10/30/16 06:02 Sodium 132 mmol/L (132-148) 11/04/16 08:23 Potassium 4.9 mmol/L (3.6-5.2) 11/04/16 08:23 Chloride 99 mmol/L (98-107) 11/04/16 08:23 Carbon Dioxide 21 mmol/L (22-30) L 11/04/16 08:23 Anion Gap 17 (10-20) 11/04/16 08:23 BUN 38 mg/dL (7-17) H 11/04/16 08:23 Creatinine 4.7 MG/DL (0.7-1.2) H 11/04/16 08:23 Est GFR ( Amer) 11 11/04/16 08:23 Est GFR (Non-Af Amer) 9 11/04/16 08:23 POC Glucose (mg/dL) 236 mg/dL (65-110) H 11/04/16 11:46 Random Glucose 128 mg/dL (65-105) H 11/04/16 08:23 Hemoglobin A1c 12.2 % (4.2-6.5) H 10/22/16 07:18 Calcium 8.8 mg/dl (8.6-10.4) 11/04/16 08:23 Phosphorus 4.2 mg/dL (2.5-4.5) 11/04/16 08:23 Magnesium 2.2 mg/dL (1.6-2.3) 11/04/16 08:23 Total Bilirubin 0.6 mg/dL (0.2-1.3) 11/04/16 08:23 AST 23 U/L (14-36) 11/04/16 08:23 ALT 11 U/L (9-52) 11/04/16 08:23 Alkaline Phosphatase 100 U/L (38-126) 11/04/16 08:23 Total Protein 6.4 g/dL (6.3-8.3) 11/04/16 08:23 Albumin 3.2 g/dL (3.5-5.0) L 11/04/16 08:23 Globulin 3.2 gm/dL (2.2-3.9) 11/04/16 08:23 Albumin/Globulin Ratio 1.0 (1.0-2.1) 11/04/16 08:23 Triglycerides 248 mg/dL (0-149) H 10/22/16 07:18 Cholesterol 217 mg/dL (0-199) H 10/22/16 07:18 LDL Cholesterol Direct 113 mg/dL (0-129) 10/22/16 07:18 HDL Cholesterol 39 mg/dL (30-70) 10/22/16 07:18 Vancomycin Trough 16.4 ug/mL (5.0-10.0) H 10/25/16 11:16 Hep Bs Antigen Negative (NEGATIVE) 10/26/16 18:52 Hep Bs Antibody Negative (NEGATIVE) 10/26/16 18:52 Hep B Core IgM Ab Negative (NEGATIVE) 10/26/16 18:52 Hepatitis C Antibody Negative (NEGATIVE) 10/26/16 18:52 Blood Type B POSITIVE 11/03/16 06:51 Blood Type Confirm B POSITIVE 11/03/16 06:51 Antibody Screen Negative 11/03/16 06:51 - Hospital Course Hospital Course: on admission: 71 yo female with PMHx of CKD stage III, CHF?, HTN, CAD, DM2, anxiety, anemia of chronic disease, chronic low back pain presents to the ED at the instruction of Dr. Melendez for care for an ulcer on her left foot. assisted with any clarification in [place]an. Pt states that ulcer began as a cut on her foot 3 months ago and it became progressively worse for the past month. She reports it hurts at times, especially when she walks on it or tried to place any pressure. She states it only became as bad as it is now for the past month. As per pt, she was recently seen at [facility] for the same wound and was sent home with topical collagenase santyl. Patient was seen by Dr. Melendez in his office on Thursday and told to come in today 10/21 for wound debridement. Pt reports no pain other than at the wound site, with some pain in the area of the foot surrounding the wound as well. Pt's reports that her sugars are " usually pretty good" and states they are typically in the 150s or higher. Pt denies fever, chills, headache, dizziness, vision changes, sore throat, chest pain, palpitations, shortness of breath, cough, abd pain, nausea, vomiting, or bowel/bladder pain. She does admit to some leg swelling and pain at the wound site. Patient denies any recent travel/sick contacts. Hospital course: Pt admitted on 10/21 for left foot ulcer. Discharge Exam - Head Exam Head Exam: NORMAL INSPECTION Discharge Plan - Discharge Medications Prescriptions: Escitalopram [Lexapro] 10 mg PO DAILY #30 tab Sevelamer Carbonate [Renvela] 0.8 gm PO TIDCC #90 packet Vitamin B Complex/Vit C/Folic [Nephro-Kevin] 1 tab PO DAILY #30 tab - Follow Up Plan Condition: STABLE Disposition: HOME/ ROUTINE Instructions: Sevelamer (By mouth), Escitalopram (By mouth), Heart Failure (DC) , Dialysis Diet (DC), Peripheral Vascular Disease (DC), Peripheral Vascular Angioplasty (DC), End Stage Kidney Disease (DC), Perma-cath Placement (DC), Angiogram (DC) Additional Instructions: Patient stable for discharge per Dr. Myrick. Patient may resume her home medications. She has been prescribed the following medications: see below Patient is make an appointment with their PMD, Dr. Myrick, within one week of discharge for follow-up. She should also make an appointment to follow up with specialist, Dr. Ambrose to continue evaluation of chronic kidney disease. She is advised to return to the emergency department if symptoms return or worsen. These instructions were given to the pt in [place]er. Patient expressed verbal understanding of these instructions. Prescribed medications: Lexapro 10mg by mouth once daily Renvela 0.8 gm one tab by mouth three times daily with meals Nephro-kevin 1 tab by mouth daily Pt home meds to continue: Hydralazine 50mg by mouth twice daily Losartan 100mg by mouth once daily Atorvastatin 20mg by mouth at night before bed Lantus 30 units at night Referrals: Benson Myrick Jr., MD [Medical Doctor] -
[2016-11-04 16:19] VITALS: BP 103/56; RESP 20; TEMP 98.9; O2SAT 94
--- NOTE | 2016-11-04 17:46 | PCM.HF ---
Heart Failure Core Measure - Heart Failure Ejection Fraction: 40 % or Greater STEVEN Inhibitor Prescribed: No Contraindication/Reason for not providing: ARB Beta-Carmen Prescribed: None Contraindication/Reason for not providing: NOT RX BY MD Angiotensin II Receptor Carmen Prescribed: Yes AnticoagulationTherapy for Atrial Fibrillation/Atrialflutter: No Contraindication/Reason for not providing: NO AFIB Aldosterone Antagonist Prescribed: No Contraindication/Reason for not providing: EF >40 Hydralazine Nitrate Prescribed: Yes Implantable Cardioverter Defibrillator Therapy: No Contraindication/Reason for not providing: EF >40 Cardiac Resynchronization Therapy Prescribed: No Contraindication/Reason for not providing: EF >40 - Follow up Will be discharged to: Home Follow Up Date (must be within 7 days from discharge): 11/07/16 Follow Up Time: 09:00
--- NOTE | 2016-11-04 22:24 | CP.PCM.PN ---
Subjective - Date & Time of Evaluation Date of Evaluation: 11/04/16 Time of Evaluation: 13:00 - Subjective Subjective: SEEN ON RENAL F/U SEEN ON HD FEELS IMPROVED S/P L ARM AVF GOING HOME POST HD CASE D/W PT AND Objective - Vital Signs/Intake and Output Vital Signs (last 24 hours): Temp Pulse Resp BP Pulse Ox 98.9 F 96 H 20 103/56 L 94 L 11/04/16 16:00 11/04/16 16:00 11/04/16 16:00 11/04/16 16:00 11/04/16 16:00 - Labs Labs: 11/04/16 08:23 11/04/16 08:23 PT 11.3 SECONDS (9.7-12.2) 10/30/16 06:02 INR 1.0 10/30/16 06:02 APTT 28 SECONDS (21-34) 10/30/16 06:02 Assessment and Plan - Assessment and Plan (Free Text) Assessment: ESRD ON HD M W F ANEMIA OF CKD .. ON EPO MMP P : TO BE D/C WILL F/U AN OUT PT TO C/O ON SAME MEDS
== END 2016-11-04 17:45 | disposition home or self-care (01) | DRG 252 ==
LOC: C.ER 09:54 → C.9E 11:20 → C.3T 12:22 → C.6T 10-26 21:07
PROVIDERS: ADMIT Internal Medicine; ATTEND Internal Medicine
PROC: 5A1D60Z (ICD-10-PCS; 2016-10-27)
PROC: 047N3ZZ Dilation of Left Popliteal Artery, Percutaneous Approach (ICD-10-PCS; principal; 2016-10-28 11:00)
PROC: 05HM33Z Insertion of Infusion Device into Right Internal Jugular Vein, Percutaneous Approach (ICD-10-PCS; 2016-10-30)
PROC: 051 Upper Veins, Bypass (ICD-10-PCS; 2016-11-03)
DX: E11.51 Type 2 diabetes mellitus with diabetic peripheral angiopathy without gangrene (principal); N18.6 End stage renal disease; I13.2 Hypertensive heart and chronic kidney disease with heart failure and with stage 5 chronic kidney disease, or end stage renal disease; N17.9 Acute kidney failure, unspecified; E11.621 Type 2 diabetes mellitus with foot ulcer; E11.22 Type 2 diabetes mellitus with diabetic chronic kidney disease; I27.2 Other secondary pulmonary hypertension; L97.429 Non-pressure chronic ulcer of left heel and midfoot with unspecified severity; L03.116 Cellulitis of left lower limb; I70.222 Atherosclerosis of native arteries of extremities with rest pain, left leg; E11.628 Type 2 diabetes mellitus with other skin complications; I08.1 Rheumatic disorders of both mitral and tricuspid valves; E11.649 Type 2 diabetes mellitus with hypoglycemia without coma; D63.1 Anemia in chronic kidney disease; E78.00 Pure hypercholesterolemia, unspecified; E78.5 Hyperlipidemia, unspecified; F41.9 Anxiety disorder, unspecified; I25.10 Atherosclerotic heart disease of native coronary artery without angina pectoris; I50.9 Heart failure, unspecified; M77.32 Calcaneal spur, left foot; M72.2 Plantar fascial fibromatosis; F32.9 Major depressive disorder, single episode, unspecified; K59.00 Constipation, unspecified; G89.29 Other chronic pain; B35.3 Tinea pedis; H40.9 Unspecified glaucoma; Z79.4 Long term (current) use of insulin; Z87.440 Personal history of urinary (tract) infections; Z90.49 Acquired absence of other specified parts of digestive tract

== ENCOUNTER 2016-11-28 13:13 | Inpatient (IN) | payer MEDICARE ==
[2016-11-28 13:13] VITALS: BMI 26.5
--- NOTE | 2016-11-28 13:39 | C.PDOC ---
History Of Present Illness 71F c/o infected wound left arm. she had surgery 3 weeks ago and says progressive sx for last 2 weeks. Time Seen by Provider: 11/28/16 13:37 Chief Complaint (Nursing): Abnormal Skin Integrity Past Medical History Vital Signs: Last Vital Signs Temp 98.9 F 11/28/16 13:29 Pulse 71 11/28/16 13:29 Resp 18 11/28/16 13:29 BP 129/67 11/28/16 13:29 Pulse Ox 96 11/28/16 15:36 - Medical History PMH: Anemia, Anxiety, CHF, Depression (BROTHER LAST YEAR), Diabetes, HTN, Hypercholesterolemia, End Stage Renal Disease, Chronic Kidney Disease Denies: HIV Surgical History: Appendectomy, Endoscopy (OCTOBER 2013) - [facility] Procedures ANESTH INJECT-SPIN CANAL (01/08/15) ANGIOPLASTY OF OTHER NON-CORONARY VESSEL(S) (03/01/14) ATHERECTOMY OF OTHER NON-CORONARY VESSEL(S) (03/01/14) BYPASS L BASILIC VEIN TO UP VEIN W SYNTH SUB, OPEN (10/21/16) DILATION OF LEFT POPLITEAL ARTERY, PERCUTANEOUS APPROACH (10/21/16) DRAINAGE OF LEFT PLEURAL CAVITY, PERCUTANEOUS APPROACH (10/10/15) EXERCISE TREATMENT OF MUSCULOSK WHOLE USING ASSIST EQUIPMENT (10/17/15) GAIT TRAINING/AMBULAT TREATMENT USING ASSIST EQUIPMENT (10/17/15) HOME MANAGEMENT TREATMENT USING ASSIST EQUIPMENT (10/17/15) IMMOBILIZ/WOUND ATTN NEC (06/24/13) INJECT STEROID (01/08/15) INJECT/INFUSE NEC (01/08/14) INSEJ OF DRUG-ELUTING STENT(S) OF OTH PERIPHERAL VESSEL(S) (03/01/14) INSERT INFUSION DEV IN R INT JUGULAR VEIN, PERC (10/21/16) INSERTION OF TWO VASCULAR STENTS (03/01/14) INTRODUCE OF OTH ANTI-INFECT INTO PERIPH VEIN, PERC APPROACH (10/17/15) PERFORMANCE OF URINARY FILTRATION, MULTIPLE (10/21/16) PROCEDURE ON SINGLE VESSEL (03/01/14) SPINAL CANAL INJECT NEC (01/08/15) VACCINATION NEC (11/29/14) Family History: States: Other Other Family History: nc - Social History Hx Alcohol Use: No Hx Substance Use: No - Immunization History Hx Tetanus Toxoid Vaccination: No Hx Influenza Vaccination: No Hx Pneumococcal Vaccination: No Review Of Systems Except As Marked, All Systems Reviewed And Found Negative. Constitutional: Positive for: Weakness. Negative for: Fever, Chills Cardiovascular: Negative for: Chest Pain Respiratory: Negative for: Cough, Shortness of Breath Gastrointestinal: Negative for: Nausea, Vomiting, Abdominal Pain Musculoskeletal: Positive for: Foot Pain (chronic left foot) Neurological: Negative for: Headache Physical Exam - Physical Exam Appears: No Acute Distress Skin: Warm, Dry, Pale Head: Atraumatic Eye(s): bilateral: PERRL Oral Mucosa: Moist Lips: No Swelling Cardiovascular: Rhythm Regular Respiratory: No Decreased Breath Sounds, No Accessory Muscle Use, No Rales, No Rhonchi, No Wheezing Gastrointestinal/Abdominal: Soft, No Tenderness Extremity: Swelling, Other (surgical wound left upper arm w surrounding erythema and purulent drainage) Pulses: Left Radial: Normal, Right Radial: Normal, Left Dorsalis Pedis: Decreased, Right Dorsalis Pedis: Decreased Neurological/Psych: Oriented x3, Other (no focal deficits) ED Course And Treatment - Laboratory Results Result Diagrams: 11/28/16 14:27 11/28/16 14:27 O2 Sat by Pulse Oximetry: 96 Medical Decision Making Medical Decision Making: ecg- nsr 70, nl axis, nonspec t wave abnormality disc w Dr Myrick who will admit Disposition - Disposition Disposition: HOSPITALIZED Disposition Time: 14:52 Condition: STABLE - Clinical Impression Clinical Impression: Wound infection after surgery
[2016-11-28] MEDS ORDERED: Sodium Chloride 0.9% 1,000 ML IV ONE (13:52)
[2016-11-28] MEDS ORDERED: Piperacill/Tazo 3.375gm in Dex 3.375 GM/50 ML BAG IVPB STA (13:52)
[2016-11-28 14:30] LABS: BASO # 0.1 K/uL (0.0-0.2); BASO % 1.1 % (0.0-2.0); EOS # 0.6 K/uL (0.0-0.7); HEMOGLOBIN 7.5 g/dL (11.0-16.0); LYMPH # 1.7 K/uL (1.0-4.3); LYMPH % 14.4 % (20.0-40.0); MEAN CORPUSCULAR HEMOGLOBIN 29.6 pg (27.0-31.0); MEAN CORPUSCULAR HGB CONC 30.8 g/dL (33.0-37.0); MEAN PLATELET VOLUME 10.1 fL (7.2-11.7); MONO # 1.4 K/uL (0.0-0.8); MONO % 11.8 % (0.0-10.0); NEUT # 8.2 K/uL (1.8-7.0); NEUT % 67.7 % (50.0-75.0); NRBC % 0.3 % (0.0-2.0); RBC 2.54 Mil/uL (3.80-5.20); RED CELL DISTRIBUTION WIDTH 19.8 % (11.5-14.5); WHITE BLOOD COUNT 12.1 K/uL (4.8-10.8)
[2016-11-28 14:32] LABS: MEAN CELL VOLUME 96.2 fL (81.0-99.0)
[2016-11-28 14:39] LABS: PROTHROMBIN TIME 11.5 SECONDS (9.7-12.2)
[2016-11-28 14:40] LABS: ALBUMIN 3.1 g/dL (3.5-5.0)
[2016-11-28 14:43] LABS: ALB/GLOB RATIO 1.1 (1.0-2.1); CALCIUM 8.4 mg/dl (8.6-10.4)
[2016-11-28 14:46] LABS: VENOUS BLOOD GAS BASE EXCESS 11.8 mmol/L (0.0-2.0); VENOUS BLOOD GAS PCO2 47 mmHg (40-60); VENOUS BLOOD GAS PO2 39 mm/Hg (30-55)
[2016-11-28] MEDS ORDERED: Vancomycin 1 GM 1 GM/250 ML BAG IVPB ONE (15:07)
[2016-11-28] MEDS ORDERED: Piperacillin/Tazobact 3.375 gm 100 ML IVPB ONE (15:07)
--- NOTE | 2016-11-28 21:27 | CP.PCM.HP ---
History of Present Illness - History of Present Illness History of Present Illness: CC: swelling/pain/erythema at AV fistula surgical site HPI: Mrs Navarrete is a 71 yo F who presented to the ED because of pain and swelling at the site of her AV fistula in her left arm. The pain has been intermittent since the placement of the AV fistula, which was a month ago. She says that there was yellow discharge a few days after her surgery. She states the pain got worse when the stitches came out 2 weeks ago. She complains of tingling and numbness in her left hand. She denies fever, cough, nausea, fatigue , diarrhea, lightheadedness, chest pain. PMD: Dr Myrick PMHx: CKD stage III, CHF, HTN, CAD, DM2, anxiety, anemia of chronic disease, chronic low back pain PSHx: Appendectomy Medications: Hydralazine 50mg, Losartan potassium 100mg, HCTZ 25mg, Allopurinol 100mg, Torsemide 100mg, Atorvastatin 20mg, Lantus, Iron 65mg, Vit D3 5000IU, Bactrim DS, Esomeprazole 40mg Allergies: NKDA Family history: not contributory Social History: Lives with in [place], denies any smoking, denies ETOH or drug abuse Present on Admission - Present on Admission Any Indicators Present on Admission: No Review of Systems - Constitutional Constitutional: absent: Chills, Excessive Sweating, Fever, Headache - EENT Eyes: absent: Change in Vision Nose/Mouth/Throat: absent: Nasal Discharge, Sore Throat - Cardiovascular Cardiovascular: absent: Chest Pain, Edema, Irregular Heart Rhythm - Respiratory Respiratory: absent: Cough, Dyspnea, Wheezing - Gastrointestinal Gastrointestinal: absent: Constipation, Diarrhea, Vomiting - Genitourinary Genitourinary: absent: Dysuria - Musculoskeletal Musculoskeletal: Joint Swelling Additional comments: recovering ulcer of right foot - Neurological Neurological: Numbness. absent: Behavioral Changes, Dizziness Additional comments: numbness of right hand - Psychiatric Psychiatric: absent: Behavioral Changes, Depression Past Patient History - Infectious Disease Hx of Infectious Diseases: None - Tetanus Immunizations Tetanus Immunization: Unknown - Past Medical History & Family History Past Medical History?: Yes - Past Social History Smoking Status: Never Smoked - CARDIAC Hx Congestive Heart Failure: Yes Hx Hypercholesterolemia: Yes Hx Hypertension: Yes - PULMONARY Hx Respiratory Disorders: No - NEUROLOGICAL Hx Neurological Disorder: No - HEENT Hx Cataracts: Yes - RENAL Hx Chronic Kidney Disease: Yes - ENDOCRINE/METABOLIC Hx Diabetes Mellitus Type 2: Yes - HEMATOLOGICAL/ONCOLOGICAL Hx Anemia: Yes Hx Human Immunodeficiency Virus (HIV): No - INTEGUMENTARY Hx Dermatological Problems: No (VERY PALE) - MUSCULOSKELETAL/RHEUMATOLOGICAL Hx Degenerative Joint Disease: Yes Hx Falls: No - GENITOURINARY/GYNECOLOGICAL Hx Urinary Tract Infection: Yes - PSYCHIATRIC Hx Anxiety: Yes Hx Depression: Yes (BROTHER LAST YEAR) Hx Substance Use: No - SURGICAL HISTORY Hx Appendectomy: Yes - ANESTHESIA Hx Anesthesia: Yes Hx Anesthesia Reactions: No Hx Malignant Hyperthermia: No Meds Allergies/Adverse Reactions: Allergies Allergy/AdvReac Type Severity Reaction Status Date / Time No Known Allergies Allergy Verified 10/21/16 09:57 Physical Exam - Head Exam Head Exam: ATRAUMATIC, NORMAL INSPECTION, NORMOCEPHALIC - Eye Exam Eye Exam: EOMI, Normal appearance, PERRL - ENT Exam ENT Exam: Mucous Membranes Moist, Normal Exam - Neck Exam Neck exam: Positive for: Normal Inspection - Respiratory Exam Respiratory Exam: Clear to Auscultation Bilateral, NORMAL BREATHING PATTERN - Cardiovascular Exam Cardiovascular Exam: REGULAR RHYTHM - GI/Abdominal Exam GI & Abdominal Exam: Normal Bowel Sounds, Soft. absent: Tenderness - Rectal Exam Rectal Exam: Deferred - Extremities Exam Extremities exam: Positive for: tenderness Additional comments: swelling and erythema at AV fistula site of left arm extending from upper arm to mid forearm no discharge - Neurological Exam Neurological exam: Alert - Psychiatric Exam Psychiatric exam: Normal Affect, Normal Mood - Skin Skin Exam: Erythema Results - Vital Signs Recent Vital Signs: Last Vital Signs Temp 98.5 F 11/28/16 20:14 Pulse 70 11/28/16 20:14 Resp 18 11/28/16 20:14 BP 140/64 11/28/16 20:14 Pulse Ox 95 11/28/16 20:14 - Labs Result Diagrams: 11/28/16 14:27 11/28/16 14:27 Labs: Laboratory Results - last 24 hr 11/28/16 11/28/16 15:36 17:07 POC Glucose (mg/dL) 88 Blood Type B POSITIVE Antibody Screen Negative Assessment & Plan (1) Wound infection after surgery Assessment and Plan: Temp 98.9 WBC 12.1 left arm wound culture pending ID consulted, Dr Meng, f/u recs Surgury consulted, Dr Melendez, f/u vanc/zosyn given in ED Status: Acute (2) CKD (chronic kidney disease) stage 3, GFR 30-59 ml/min Assessment and Plan: con't home med: sevelamer 0.8g TIDCC Status: Chronic (3) Anemia, chronic disease Assessment and Plan: Hg 7.5 Patient has been typed and screened ferrous sulfate 325mg po daily Status: Chronic (4) Hypertension Assessment and Plan: con't home med: hydralazine 50mg po bid losartan 100mg po daily Status: Chronic (5) Diabetes Assessment and Plan: accuchecks insulin glargine ACHS rosuvastatin 10mg po hs Status: Acute (6) Prophylactic measure Assessment and Plan: SCDs heparin 5000u sc q12 pepcid 20mg po bid renal diet Status: Acute
[2016-11-28] MEDS ORDERED: (Lantus) Insulin Glargine, Recombinant SC SCH (22:00)
[2016-11-29] MEDS ORDERED: (Lantus) Insulin Glargine, Recombinant SC SCH ×3 (07:30→22:00)
[2016-11-29] MEDS: Sevelamer Carb 0.8 gm/Packet PO SCH ×3 (09:00→18:13)
[2016-11-29] MEDS: Multivitamin Vitamin B Complex (Nephro-Vite) Tab PO SCH (09:59)
[2016-11-29] MEDS ORDERED: IRON PO SCH (10:00)
[2016-11-29] MEDS: Ergocalciferol 50,000 Intl Units Cap PO SCH (10:00)
[2016-11-29] MEDS ORDERED: CHOLECALCIFEROL PO SCH (10:00)
--- NOTE | 2016-11-29 12:05 | CP.PCM.CON ---
History of Present Illness - History of Present Illness History of Present Illness: INFECTIOUS DISEASE CONSULT. REASON FOR CONSULT: INFECTED AV FISTULA SURGICAL SITE. HPI: Mrs Navarrete is a 71 yo with history of CHF,ESRD ON DIALYSIS TTS, HTN, CAD, DM 2 , anxiety problems and chronic low back pain, who presented to the ED because of pain and swelling at the site of her AV fistula in her left arm. The pain has been intermittent since the placement of the AV fistula, which was a month ago. She says that there was yellow discharge a few days after her surgery. She states the pain got worse when the stitches came out 2 weeks ago. She complains of tingling and numbness in her left hand. She denies fever, cough, nausea, fatigue, diarrhea, lightheadedness. Infectious disease consult requested by Dr. Myrick for probable infected AV fistula surgical site AND CELLULITIS LEFT ARM Patient got a dose of vancomycin 1 g and IV Zosyn 3.375 after appropriate cultures. Patient presently denies cough, shortness of breath, chest pain or headache. PMD: Dr Myrick PMHx: CKD stage III, CHF, HTN, CAD, DM2, anxiety, anemia of chronic disease, chronic low back pain PSHx: Appendectomy Medications: Hydralazine 50mg, Losartan potassium 100mg, HCTZ 25mg, Allopurinol 100mg, Torsemide 100mg, Atorvastatin 20mg, Lantus, Iron 65mg, Vit D3 5000IU, Bactrim DS, Esomeprazole 40mg Allergies: NKDA Family history: not contributory Social History: Lives with in [place], denies any smoking, denies ETOH or drug abuse Review of Systems - Constitutional Constitutional: Malaise - EENT Eyes: absent: Blurred Vision Nose/Mouth/Throat: absent: Mouth Lesions - Cardiovascular Cardiovascular: absent: Chest Pain, Dyspnea - Respiratory Respiratory: absent: Cough, Hemoptysis - Gastrointestinal Gastrointestinal: absent: Abdominal Pain, Diarrhea - Genitourinary Genitourinary: absent: Dysuria (pt has CRF on HD TTS.) - Musculoskeletal Musculoskeletal: Radiating Pain into Limb ([facility] SURGICAL SITE.) - Neurological Neurological: absent: Headaches - Hematologic/Lymphatic Hematologic: As Per HPI. absent: Lymphadenopathy Past Patient History - Infectious Disease Hx of Infectious Diseases: None - Tetanus Immunizations Tetanus Immunization: Unknown - Past Medical History & Family History Past Medical History?: Yes - Past Social History Smoking Status: Never Smoked - CARDIAC Hx Congestive Heart Failure: Yes Hx Hypercholesterolemia: Yes Hx Hypertension: Yes - PULMONARY Hx Respiratory Disorders: No - NEUROLOGICAL Hx Neurological Disorder: No - HEENT Hx Cataracts: Yes - RENAL Hx Chronic Kidney Disease: Yes - ENDOCRINE/METABOLIC Hx Diabetes Mellitus Type 2: Yes - HEMATOLOGICAL/ONCOLOGICAL Hx Anemia: Yes Hx Human Immunodeficiency Virus (HIV): No - INTEGUMENTARY Hx Dermatological Problems: No (VERY PALE) - MUSCULOSKELETAL/RHEUMATOLOGICAL Hx Degenerative Joint Disease: Yes Hx Falls: No - GENITOURINARY/GYNECOLOGICAL Hx Urinary Tract Infection: Yes - PSYCHIATRIC Hx Anxiety: Yes Hx Depression: Yes (BROTHER LAST YEAR) Hx Substance Use: No - SURGICAL HISTORY Hx Appendectomy: Yes - ANESTHESIA Hx Anesthesia: Yes Hx Anesthesia Reactions: No Hx Malignant Hyperthermia: No Meds Allergies/Adverse Reactions: Allergies Allergy/AdvReac Type Severity Reaction Status Date / Time No Known Allergies Allergy Verified 10/21/16 09:57 - Medications Medications: Current Medications Allopurinol (Zyloprim) 100 mg PO DAILY [facility] Last Admin: 11/29/16 10:52 Dose: 100 mg Epoetin Maxwell (Procrit) 10,000 unit IV TTS [facility] Ergocalciferol (Drisdol 50,000 Intl Units Cap) 1 cap PO QWK [facility] Last Admin: 11/29/16 10:00 Dose: 1 cap Escitalopram Oxalate (Lexapro) 10 mg PO DAILY [facility] Last Admin: 11/29/16 09:59 Dose: 10 mg Famotidine (Pepcid) 20 mg PO BID [facility] Last Admin: 11/29/16 09:59 Dose: 20 mg Ferric Sodium Gluconate Complex (Ferrlecit) 125 mg IVPB DAILY [facility] Stop: 12/07/16 10:01 Ferrous Sulfate (Feosol) 325 mg PO DAILY [facility] Last Admin: 11/29/16 09:59 Dose: 325 mg Heparin Sodium (Porcine) (Heparin) 5,000 units SC Q12 [facility] Last Admin: 11/29/16 09:59 Dose: 5,000 units Hydralazine HCl (Apresoline) 50 mg PO BID [facility] Last Admin: 11/29/16 10:00 Dose: Not Given Insulin Glargine (Lantus) 30 unit SC HS [facility] Losartan Potassium (Cozaar) 100 mg PO DAILY [facility] Last Admin: 11/29/16 10:01 Dose: Not Given Mupirocin (Bactroban Ointment) 0 gm TOP BID [facility] Last Admin: 11/29/16 10:05 Dose: 1 applic Potassium Chloride (K-Dur 20 Meq Er Tab) 20 meq PO ONCE ONE Stop: 11/29/16 22:44 Rosuvastatin Calcium (Crestor) 10 mg PO HS [facility] Last Admin: 11/28/16 22:25 Dose: 10 mg Sevelamer Carbonate (Renvela) 0.8 gm PO TIDCC [facility] Last Admin: 11/29/16 09:00 Dose: 0.8 gm Vitamin B Complex/Vit C/Folic Acid (Nephro-Alonzo) 1 tab PO DAILY [facility] Last Admin: 11/29/16 09:59 Dose: 1 tab Physical Exam - Constitutional Appears: No Acute Distress - Head Exam Head Exam: NORMAL INSPECTION - Eye Exam Eye Exam: EOMI, PERRL - ENT Exam ENT Exam: Normal Oropharynx - Neck Exam Neck exam: Positive for: Normal Inspection - Respiratory Exam Respiratory Exam: Clear to Auscultation Bilateral - Cardiovascular Exam Cardiovascular Exam: Tachycardia, REGULAR RHYTHM, +S1, +S2 - GI/Abdominal Exam GI & Abdominal Exam: Normal Bowel Sounds, Soft. absent: Organomegaly - Extremities Exam Extremities exam: Positive for: pedal pulses present. Negative for: calf tenderness, pedal edema - Neurological Exam Neurological exam: Alert, CN II-XII Intact, Oriented x3 - Psychiatric Exam Psychiatric exam: Normal Mood - Skin Skin Exam: Normal Color Results - Vital Signs Recent Vital Signs: Last Vital Signs Temp 98.2 F 11/29/16 07:15 Pulse 80 11/29/16 07:15 Resp 20 11/29/16 07:15 BP 179/64 H 11/29/16 07:15 Pulse Ox 96 11/29/16 07:15 - Labs Result Diagrams: 11/28/16 14:27 11/28/16 14:27 Labs: Laboratory Results - last 24 hr 11/28/16 11/28/16 11/28/16 15:36 17:07 22:06 POC Glucose (mg/dL) 88 66 Blood Type B POSITIVE Antibody Screen Negative 11/28/16 11/29/16 11/29/16 22:30 01:41 06:17 POC Glucose (mg/dL) 115 H 106 77 Blood Type Antibody Screen 11/29/16 11/29/16 07:09 11:10 POC Glucose (mg/dL) 104 214 H Blood Type Antibody Screen Assessment & Plan (1) Wound infection after surgery Assessment and Plan: PT S/P SURGERY AVS ? INFECTED SHUNT. PATIENT RECEIVED ONE DOSE OF vANCO 1 G 11/28/16 AND zOSYN 3.3751 DOSE ON 11/28/16 START iv CEFEPIME 1 G EVERY 24 HOURLY. 11/29/16 CONTINUE iv VANCOMYCIN 1 G POST EACH HEMODIALYSIS TTS X 5 DOSES FOR STAPH/ STREPT COVERAGE. AWAIT CULTURES TO ADJUST ANTIBIOTICS. CASE DISCUSSED WITH STAF Status: Acute (2) Cellulitis Assessment and Plan: LWC PER VASCULAR SURGERY. Status: Acute Priority: High (3) Foot ulcer Assessment and Plan: PATIENT ALSO HAS A LEFT LATERAL PLANTAR ULCER X 2 MONTHS LWC PER PODIATRY. pATIENT SEEN BY PODIATRY TODAY AND DRESSED. Status: Acute (4) Peripheral vascular disease Status: Acute (5) Anemia, chronic disease Status: Chronic (6) CKD (chronic kidney disease) stage 3, GFR 30-59 ml/min Assessment and Plan: ESRD ON HD TTS. DR MALDONADO [facility] ON BOARD. Status: Chronic (7) DM2 (diabetes mellitus, type 2) Status: Chronic Priority: Medium
[2016-11-29] MEDS: Cefepime IV 1 gm in Dextrose 1 GM/50 ML BAG IVPB SCH ×2 (12:30→19:54)
[2016-11-29] MEDS: Ferric Sodium Gluconat Complex 62.5 mg/5 ml Vial IVPB SCH (16:07)
[2016-11-29] MEDS: Epoetin Alfa 10,000 unit/ml Dialysis IV SCH (17:03)
--- NOTE | 2016-11-29 17:55 | CP.PCM.PN ---
Subjective - Date & Time of Evaluation Date of Evaluation: 11/29/16 Time of Evaluation: 17:34 - Subjective Subjective: on hd at present vss alize proc unable to dictate consult Objective - Vital Signs/Intake and Output Vital Signs (last 24 hours): Temp Pulse Resp BP Pulse Ox 98.4 F 71 19 132/46 L 100 11/29/16 17:20 11/29/16 17:20 11/29/16 17:20 11/29/16 17:20 11/29/16 17:20 Intake and Output: 11/29/16 11/29/16 06:59 18:59 Intake Total 200 300 Balance 200 300 - Medications Medications: Current Medications Allopurinol (Zyloprim) 100 mg PO DAILY COUNTS INCLUDE 234 BEDS AT [facility] Last Admin: 11/29/16 10:52 Dose: 100 mg Clotrimazole (Lotrimin 1%) 0 gm TOP BID COUNTS INCLUDE 234 BEDS AT THE [facility] Collagenase (Santyl) 30 gm TOP BID COUNTS INCLUDE 234 BEDS AT THE [facility] Epoetin Maxwell (Procrit) 10,000 unit IV TTS COUNTS INCLUDE 234 BEDS AT THE [facility] Last Admin: 11/29/16 17:03 Dose: 10,000 unit Ergocalciferol (Drisdol 50,000 Intl Units Cap) 1 cap PO QWK COUNTS INCLUDE 234 BEDS AT THE [facility] Last Admin: 11/29/16 10:00 Dose: 1 cap Escitalopram Oxalate (Lexapro) 10 mg PO DAILY COUNTS INCLUDE 234 BEDS AT THE [facility] Last Admin: 11/29/16 09:59 Dose: 10 mg Famotidine (Pepcid) 20 mg PO BID COUNTS INCLUDE 234 BEDS AT THE [facility] Last Admin: 11/29/16 09:59 Dose: 20 mg Ferric Sodium Gluconate Complex (Ferrlecit) 125 mg IVPB DAILY COUNTS INCLUDE 234 BEDS AT THE [facility] Stop: 12/07/16 10:01 Last Admin: 11/29/16 16:07 Dose: 125 mg Ferrous Sulfate (Feosol) 325 mg PO DAILY COUNTS INCLUDE 234 BEDS AT THE [facility] Last Admin: 11/29/16 09:59 Dose: 325 mg Furosemide (Lasix) 40 mg IVP DAILY COUNTS INCLUDE 234 BEDS AT THE [facility] Heparin Sodium (Porcine) (Heparin) 5,000 units SC Q12 COUNTS INCLUDE 234 BEDS AT THE [facility] Last Admin: 11/29/16 09:59 Dose: 5,000 units Hydralazine HCl (Apresoline) 50 mg PO BID COUNTS INCLUDE 234 BEDS AT THE [facility] Last Admin: 11/29/16 10:00 Dose: Not Given Cefepime HCl (Maxipime Iv 1 Gm Premix) 1 gm in 50 mls @ 100 mls/hr IVPB Q24H COUNTS INCLUDE 234 BEDS AT THE [facility] Last Admin: 11/29/16 12:30 Dose: Not Given Vancomycin HCl 1 gm/ Sodium (Chloride) 250 mls @ 166.7 mls/hr IVPB TTS COUNTS INCLUDE 234 BEDS AT THE [facility] Stop: 12/11/16 11:30 Insulin Glargine (Lantus) 30 unit SC [facility] Losartan Potassium (Cozaar) 100 mg PO DAILY COUNTS INCLUDE 234 BEDS AT THE [facility] Last Admin: 11/29/16 10:01 Dose: Not Given Metolazone (Zaroxolyn) 5 mg PO DAILY COUNTS INCLUDE 234 BEDS AT THE [facility] Mupirocin (Bactroban Ointment) 0 gm TOP BID COUNTS INCLUDE 234 BEDS AT THE [facility] Last Admin: 11/29/16 10:05 Dose: 1 applic Potassium Chloride (K-Dur 20 Meq Er Tab) 20 meq PO ONCE ONE Stop: 11/29/16 22:44 Rosuvastatin Calcium (Crestor) 10 mg PO HS COUNTS INCLUDE 234 BEDS AT THE [facility] Last Admin: 11/28/16 22:25 Dose: 10 mg Sevelamer Carbonate (Renvela) 0.8 gm PO TIDCC COUNTS INCLUDE 234 BEDS AT THE [facility] Last Admin: 11/29/16 12:34 Dose: 0.8 gm Vitamin B Complex/Vit C/Folic Acid (Nephro-Alonzo) 1 tab PO DAILY COUNTS INCLUDE 234 BEDS AT THE [facility] Last Admin: 11/29/16 09:59 Dose: 1 tab - Labs Labs: PT 11.5 SECONDS (9.7-12.2) 11/28/16 14:27 INR 1.0 11/28/16 14:27 APTT 29 SECONDS (21-34) 11/28/16 14:27 - Constitutional Appears: Non-toxic - Eye Exam Eye Exam: Normal appearance Pupil Exam: NORMAL ACCOMODATION - ENT Exam ENT Exam: Mucous Membranes Moist - Neck Exam Neck Exam: Normal Inspection - Respiratory Exam Respiratory Exam: NORMAL BREATHING PATTERN - Cardiovascular Exam Cardiovascular Exam: REGULAR RHYTHM - GI/Abdominal Exam GI & Abdominal Exam: Soft, Normal Bowel Sounds - Neurological Exam Neurological Exam: Alert, Awake - Psychiatric Exam Psychiatric exam: Normal Affect, Normal Mood
--- NOTE | 2016-11-29 17:58 | CP.PCM.CON ---
History of Present Illness - History of Present Illness History of Present Illness: HPI: Mrs Navarrete is a 71 yo F who presented to the ED because of pain and swelling at the site of her AV fistula in her left arm. The pain has been intermittent since the placement of the AV fistula, which was a month ago. She says that there was yellow discharge a few days after her surgery. She states the pain got worse when the stitches came out 2 weeks ago. She complains of tingling and numbness in her left hand. She denies fever, cough, nausea, fatigue , diarrhea, lightheadedness, chest pain. on hd at [facility] tts stable course mild htn no dm has cellulitis of legs and swollen access. Review of Systems - Constitutional Constitutional: absent: As Per HPI, Anorexia, Chills, Daytime Sleepiness, Excessive Sweating, Fatigue, Fever, Frequent Falls, Headache, Increased Appetite , Lethargy, Malaise, Night Sweats, Snoring, Sleep Apnea, Weight Gain, Weight Loss, Weakness, Other - EENT Eyes: absent: As Per HPI, Blind Spots, Blurred Vision, Change in Vision, Decreased Night Vision, Diplopia, Discharge, Dry Eye, Exophthalmos, Floaters, Irritation, Itchy Eyes, Loss of Peripheral Vision, Pain, Photophobia, Requires Corrective Lenses, Sees Flashes, Spots in Vision, Tunnel Vision, Other Visual Disturbances, Loss of Vision, Other Ears: absent: As Per HPI, Decreased Hearing, Ear Discharge, Ear Pain, Tinnitus, Abnormal Hearing, Disequilibrium, Dizziness, Other - Cardiovascular Cardiovascular: absent: As Per HPI, Acrocyanosis, Chest Pain, Chest Pain at Rest , Chest Pain with Activity, Claudication, Diaphoresis, Dyspnea, Dyspnea on Exertion, Edema, Irregular Heart Rhythm, Pain Radiating to Arm/Neck/Jaw, Leg Edema, Leg Ulcers, Lightheadedness, Orthopnea, Palpitations, Paroxysmal Nocturnal Dyspnea, Pedal Edema, Radiating Pain, Rapid Heart Rate, Slow Heart Rate, Syncope, Other - Respiratory Respiratory: absent: As Per HPI, Cough, Dyspnea, Hemoptysis, Dyspnea on Exertion , Wheezing, Snoring, Stridor, Pain on Inspiration, Chest Congestion, Excessive Mucous Production, Change in Mucous Color, Pain with Coughing, Other - Gastrointestinal Gastrointestinal: absent: As Per HPI, Abdominal Pain, Belching, Bloating, Change in Bowel Habits, Change in Stool Character, Coffee Ground Emesis, Constipation, Cramping, Diarrhea, Dyspepsia, Dysphagia, Early Satiety, Excessive Flatus, Fecal Incontinence, Heartburn, Hematemesis, Hematochezia, Loose Stools, Melena, Nausea, Odynophagia, Temesmus, Vomiting, Other - Musculoskeletal Musculoskeletal: absent: As Per HPI, Abnormal Gait, Arthralgias, Atrophy, Back Pain, Deformity, Joint Swelling, Limited Range of Motion, Loss of Height, Muscle Cramps, Muscle Weakness, Myalgias, Neck Pain, Numbness, Radiating Pain into Limb, Stiffness, Tingling, Other - Neurological Neurological: absent: As Per HPI, Abnormal Gait, Abnormal Hearing, Abnormal Movements, Abnormal Speech, Behavioral Changes, Burning Sensations, Confusion, Convulsions, Disequilibrium, Dizziness, Numbness, Focal Weakness, Frequent Falls , Headaches, Lack of Coordination, Loss of Vision, Memory Loss, Paresthesias, Radicular Pain, Restless Legs, Sensory Deficit, Syncope, Tingling, Tremor, Vertigo, Weakness, Other Visual Disturbances, Other Past Patient History - Infectious Disease Hx of Infectious Diseases: None - Tetanus Immunizations Tetanus Immunization: Unknown - Past Medical History & Family History Past Medical History?: Yes Past Family History: Reviewed and not pertinent - Past Social History Smoking Status: Never Smoked Alcohol: None Home Situation {Lives}: With Family - CARDIAC Hx Congestive Heart Failure: Yes Hx Hypercholesterolemia: Yes Hx Hypertension: Yes - PULMONARY Hx Respiratory Disorders: No - NEUROLOGICAL Hx Neurological Disorder: No - HEENT Hx Cataracts: Yes - RENAL Hx Chronic Kidney Disease: Yes - ENDOCRINE/METABOLIC Hx Diabetes Mellitus Type 2: Yes - HEMATOLOGICAL/ONCOLOGICAL Hx Anemia: Yes Hx Human Immunodeficiency Virus (HIV): No - INTEGUMENTARY Hx Dermatological Problems: Yes (VERY PALE) - MUSCULOSKELETAL/RHEUMATOLOGICAL Hx Degenerative Joint Disease: Yes - GENITOURINARY/GYNECOLOGICAL Hx Urinary Tract Infection: Yes - PSYCHIATRIC Hx Anxiety: Yes Hx Depression: Yes (BROTHER LAST YEAR) Hx Substance Use: No - SURGICAL HISTORY Hx Appendectomy: Yes - ANESTHESIA Hx Anesthesia: Yes Hx Anesthesia Reactions: No Hx Malignant Hyperthermia: No Meds Allergies/Adverse Reactions: Allergies Allergy/AdvReac Type Severity Reaction Status Date / Time No Known Allergies Allergy Verified 10/21/16 09:57 - Medications Medications: Current Medications Allopurinol (Zyloprim) 100 mg PO DAILY [facility] Last Admin: 11/29/16 10:52 Dose: 100 mg Clotrimazole (Lotrimin 1%) 0 gm TOP BID [facility] Collagenase (Santyl) 30 gm TOP BID [facility] Epoetin Maxwell (Procrit) 10,000 unit IV TTS [facility] Last Admin: 11/29/16 17:03 Dose: 10,000 unit Ergocalciferol (Drisdol 50,000 Intl Units Cap) 1 cap PO QWK [facility] Last Admin: 11/29/16 10:00 Dose: 1 cap Escitalopram Oxalate (Lexapro) 10 mg PO DAILY [facility] Last Admin: 11/29/16 09:59 Dose: 10 mg Famotidine (Pepcid) 20 mg PO BID [facility] Last Admin: 11/29/16 09:59 Dose: 20 mg Ferric Sodium Gluconate Complex (Ferrlecit) 125 mg IVPB DAILY [facility] Stop: 12/07/16 10:01 Last Admin: 11/29/16 16:07 Dose: 125 mg Ferrous Sulfate (Feosol) 325 mg PO DAILY [facility] Last Admin: 11/29/16 09:59 Dose: 325 mg Furosemide (Lasix) 40 mg IVP DAILY [facility] Heparin Sodium (Porcine) (Heparin) 5,000 units SC Q12 [facility] Last Admin: 11/29/16 09:59 Dose: 5,000 units Hydralazine HCl (Apresoline) 50 mg PO BID [facility] Last Admin: 11/29/16 10:00 Dose: Not Given Cefepime HCl (Maxipime Iv 1 Gm Premix) 1 gm in 50 mls @ 100 mls/hr IVPB Q24H [facility] Last Admin: 11/29/16 12:30 Dose: Not Given Vancomycin HCl 1 gm/ Sodium (Chloride) 250 mls @ 166.7 mls/hr IVPB TTS [facility] Stop: 12/11/16 11:30 Insulin Glargine (Lantus) 30 unit SC HS [facility] Losartan Potassium (Cozaar) 100 mg PO DAILY [facility] Last Admin: 11/29/16 10:01 Dose: Not Given Metolazone (Zaroxolyn) 5 mg PO DAILY [facility] Mupirocin (Bactroban Ointment) 0 gm TOP BID [facility] Last Admin: 11/29/16 10:05 Dose: 1 applic Potassium Chloride (K-Dur 20 Meq Er Tab) 20 meq PO ONCE ONE Stop: 11/29/16 22:44 Rosuvastatin Calcium (Crestor) 10 mg PO HS [facility] Last Admin: 11/28/16 22:25 Dose: 10 mg Sevelamer Carbonate (Renvela) 0.8 gm PO TIDCC [facility] Last Admin: 11/29/16 12:34 Dose: 0.8 gm Vitamin B Complex/Vit C/Folic Acid (Nephro-Alonzo) 1 tab PO DAILY [facility] Last Admin: 11/29/16 09:59 Dose: 1 tab Physical Exam - Constitutional Appears: Non-toxic - Head Exam Head Exam: NORMAL INSPECTION - Eye Exam Eye Exam: Normal appearance Pupil Exam: NORMAL ACCOMODATION - Neck Exam Neck exam: Positive for: Normal Inspection - Respiratory Exam Respiratory Exam: NORMAL BREATHING PATTERN - Cardiovascular Exam Cardiovascular Exam: REGULAR RHYTHM - GI/Abdominal Exam GI & Abdominal Exam: Normal Bowel Sounds, Soft - Psychiatric Exam Psychiatric exam: Normal Affect, Normal Mood - Skin Skin Exam: Dry, Warm Results - Vital Signs Recent Vital Signs: Last Vital Signs Temp 98.4 F 11/29/16 17:20 Pulse 71 11/29/16 17:20 Resp 19 11/29/16 17:20 BP 132/46 L 11/29/16 17:20 Pulse Ox 100 11/29/16 17:20 - Labs Result Diagrams: 11/28/16 14:27 11/28/16 14:27 Labs: Laboratory Results - last 24 hr 11/28/16 11/28/16 11/28/16 17:07 22:06 22:30 POC Glucose (mg/dL) 66 115 H Random Vancomycin Blood Type B POSITIVE Antibody Screen Negative 11/29/16 11/29/16 11/29/16 01:41 06:17 07:09 POC Glucose (mg/dL) 106 77 104 Random Vancomycin Blood Type Antibody Screen 11/29/16 11/29/16 11/29/16 11:10 16:00 16:33 POC Glucose (mg/dL) 214 H 251 H Random Vancomycin 10.25 Blood Type Antibody Screen Assessment & Plan - Assessment and Plan (Free Text) Plan: hd tts
[2016-11-29] MEDS ORDERED: Vancomycin 1 gm/NS 200 ml 1 GM/200 ML BAG IVPB STA (18:44)
--- NOTE | 2016-11-29 18:47 | CP.PCM.CON ---
History of Present Illness - History of Present Illness History of Present Illness: Patient is a 71 year old female with PMH of anemia, anxiety, CHF, depression, DM2, HTN, HLD, ESRD, CKD who is one day s/p incision and drainage of left arm AV fistula. Patient has a left foot lateral and plantar ulcer that she states has been present for two or three months. She states that the ulcer causes her mild pain and denies ever noticing any drainage, malodor or other clinical signs of infection from the site. Patient also states that years ago she had an ulcer on the contralateral foot that she saw Dr. Wilson for but she is currently not seeing a sleeping bag filler for her left foot ulcer. Her states that he has been applying Medihoney to the ulcer site daily. Patient denies any recent N/V/F/C/CP/SOB. Patient denies any further pedal complaints at this time. Review of Systems - Review of Systems Review of Systems: Review of systems unremarkable outside of HPI Past Patient History - Infectious Disease Hx of Infectious Diseases: None - Tetanus Immunizations Tetanus Immunization: Unknown - Past Medical History & Family History Past Medical History?: Yes Past Family History: Reviewed and not pertinent - Past Social History Smoking Status: Never Smoked Alcohol: None Home Situation {Lives}: With Family - CARDIAC Hx Congestive Heart Failure: Yes Hx Hypercholesterolemia: Yes Hx Hypertension: Yes - PULMONARY Hx Respiratory Disorders: No - NEUROLOGICAL Hx Neurological Disorder: No - HEENT Hx Cataracts: Yes - RENAL Hx Chronic Kidney Disease: Yes - ENDOCRINE/METABOLIC Hx Diabetes Mellitus Type 2: Yes - HEMATOLOGICAL/ONCOLOGICAL Hx Anemia: Yes Hx Human Immunodeficiency Virus (HIV): No - INTEGUMENTARY Hx Dermatological Problems: Yes (VERY PALE) - MUSCULOSKELETAL/RHEUMATOLOGICAL Hx Degenerative Joint Disease: Yes - GENITOURINARY/GYNECOLOGICAL Hx Urinary Tract Infection: Yes - PSYCHIATRIC Hx Anxiety: Yes Hx Depression: Yes (BROTHER LAST YEAR) Hx Substance Use: No - SURGICAL HISTORY Hx Appendectomy: Yes - ANESTHESIA Hx Anesthesia: Yes Hx Anesthesia Reactions: No Hx Malignant Hyperthermia: No Meds Allergies/Adverse Reactions: Allergies Allergy/AdvReac Type Severity Reaction Status Date / Time No Known Allergies Allergy Verified 10/21/16 09:57 - Medications Medications: Current Medications Allopurinol (Zyloprim) 100 mg PO DAILY [facility] Last Admin: 11/29/16 10:52 Dose: 100 mg Clotrimazole (Lotrimin 1%) 0 gm TOP BID [facility] Collagenase (Santyl) 30 gm TOP BID [facility] Epoetin Maxwell (Procrit) 10,000 unit IV TTS [facility] Last Admin: 11/29/16 17:03 Dose: 10,000 unit Ergocalciferol (Drisdol 50,000 Intl Units Cap) 1 cap PO QWK [facility] Last Admin: 11/29/16 10:00 Dose: 1 cap Escitalopram Oxalate (Lexapro) 10 mg PO DAILY [facility] Last Admin: 11/29/16 09:59 Dose: 10 mg Famotidine (Pepcid) 20 mg PO BID [facility] Last Admin: 11/29/16 18:13 Dose: 20 mg Ferric Sodium Gluconate Complex (Ferrlecit) 125 mg IVPB DAILY [facility] Stop: 12/07/16 10:01 Last Admin: 11/29/16 16:07 Dose: 125 mg Ferrous Sulfate (Feosol) 325 mg PO DAILY [facility] Last Admin: 11/29/16 09:59 Dose: 325 mg Furosemide (Lasix) 40 mg IVP DAILY [facility] Heparin Sodium (Porcine) (Heparin) 5,000 units SC Q12 [facility] Last Admin: 11/29/16 09:59 Dose: 5,000 units Hydralazine HCl (Apresoline) 50 mg PO BID [facility] Last Admin: 11/29/16 18:13 Dose: 50 mg Cefepime HCl (Maxipime Iv 1 Gm Premix) 1 gm in 50 mls @ 100 mls/hr IVPB Q24H [facility] Last Admin: 11/29/16 12:30 Dose: Not Given Vancomycin HCl 1 gm/ Sodium (Chloride) 250 mls @ 166.7 mls/hr IVPB TTS [facility] Stop: 12/11/16 11:30 Insulin Glargine (Lantus) 30 unit SC HS [facility] Losartan Potassium (Cozaar) 100 mg PO DAILY [facility] Last Admin: 11/29/16 10:01 Dose: Not Given Metolazone (Zaroxolyn) 5 mg PO DAILY [facility] Mupirocin (Bactroban Ointment) 0 gm TOP BID [facility] Last Admin: 11/29/16 10:05 Dose: 1 applic Potassium Chloride (K-Dur 20 Meq Er Tab) 20 meq PO ONCE ONE Stop: 11/29/16 22:44 Rosuvastatin Calcium (Crestor) 10 mg PO HS [facility] Last Admin: 11/28/16 22:25 Dose: 10 mg Sevelamer Carbonate (Renvela) 0.8 gm PO TIDCC [facility] Last Admin: 11/29/16 18:13 Dose: 0.8 gm Vitamin B Complex/Vit C/Folic Acid (Nephro-Alonzo) 1 tab PO DAILY [facility] Last Admin: 11/29/16 09:59 Dose: 1 tab Physical Exam - Constitutional Appears: Well, Non-toxic, No Acute Distress - Extremities Exam Additional comments: Lower extremity focused exam: Vasc: DP/PT pulses palpable 1/4 b/l. CFT < 3 seconds to digits 1-10. Skin temperature warm to warm from proximal to distal. Moderate pitting edema noted to b/l lower extremities Neuro: Epicritic and protective sensation grossly intact b/l Derm: Velazco stage 1 ulceration seen at lateral and plantar left foot. No purulent drainage, malodor, undermining, tracking, periwound erythema or other clinical signs of infection noted to the area. Hyperkeratotic periwound area noted with mild maceration seen at plantar aspect of wound. Erythematous skin changes noted to anterior shins b/l (possible hemosiderin deposition). No other open wounds, lesions, maceration, xerosis or abnormal pigmentation noted at this time. MSK: Mild POP noted to ulcer site of left foot - Neurological Exam Neurological exam: Alert, Oriented x3 - Psychiatric Exam Psychiatric exam: Normal Affect, Normal Mood Results - Vital Signs Recent Vital Signs: Last Vital Signs Temp 98.4 F 11/29/16 17:20 Pulse 71 11/29/16 17:20 Resp 19 11/29/16 17:20 BP 132/46 L 11/29/16 17:20 Pulse Ox 100 11/29/16 17:20 - Labs Result Diagrams: 11/28/16 14:27 11/28/16 14:27 Labs: Laboratory Results - last 24 hr 11/28/16 11/28/16 11/29/16 22:06 22:30 01:41 POC Glucose (mg/dL) 66 115 H 106 Random Vancomycin 11/29/16 11/29/16 11/29/16 06:17 07:09 11:10 POC Glucose (mg/dL) 77 104 214 H Random Vancomycin 11/29/16 11/29/16 16:00 16:33 POC Glucose (mg/dL) 251 H Random Vancomycin 10.25 Assessment & Plan - Assessment and Plan (Free Text) Assessment: 71 year old female with left foot ulcer secondary to DM, ESRD, CHF and CKD Plan: Patient was seen and evaluated at bedside Charts, labs and vitals reviewed Plan discussed with Dr. Jesse Batistaatotic tissue debrided from periwound area with #15 blade without incident and wound cleansed with normal saline Advised patient's to discontinue applying Medihoney to site Wound dressed with 4x4 gauze and kirlix Order for prevlon offloading boots placed Santyl to be applied to ulcer site BID Continue with abx per ID Podiatry will continue to follow while in house Thank you for this consult, please advise with any future consults - Date & Time Date: 11/29/16 Time: 19:01
--- NOTE | 2016-11-29 20:32 | CP.PCM.PN ---
<Wanda Marquez - Last Filed: 11/29/16 20:29> Subjective - Date & Time of Evaluation Date of Evaluation: 11/29/16 Time of Evaluation: 07:30 - Subjective Subjective: PGY1- Medicine Note- Dr. Myrick's Service Patient seen and examined at bedside and in no acute distress. Her right arm is hurting her. She denies all other complaints including shortness of breath, chest pain, palpitations, abdominal pain, nausea, vomiting, diarrhea, constipation. Objective - Vital Signs/Intake and Output Vital Signs (last 24 hours): Temp Pulse Resp BP Pulse Ox 98.4 F 71 19 132/46 L 100 11/29/16 17:20 11/29/16 17:20 11/29/16 17:20 11/29/16 17:20 11/29/16 17:20 Intake and Output: 11/29/16 11/30/16 18:59 06:59 Intake Total 300 Balance 300 - Medications Medications: Current Medications Allopurinol (Zyloprim) 100 mg PO DAILY [facility] Last Admin: 11/29/16 10:52 Dose: 100 mg Clotrimazole (Lotrimin 1%) 0 gm TOP BID [facility] Collagenase (Santyl) 30 gm TOP BID [facility] Epoetin Maxwell (Procrit) 10,000 unit IV TTS [facility] Last Admin: 11/29/16 17:03 Dose: 10,000 unit Ergocalciferol (Drisdol 50,000 Intl Units Cap) 1 cap PO QWK [facility] Last Admin: 11/29/16 10:00 Dose: 1 cap Escitalopram Oxalate (Lexapro) 10 mg PO DAILY [facility] Last Admin: 11/29/16 09:59 Dose: 10 mg Famotidine (Pepcid) 20 mg PO BID [facility] Last Admin: 11/29/16 18:13 Dose: 20 mg Ferric Sodium Gluconate Complex (Ferrlecit) 125 mg IVPB DAILY [facility] Stop: 12/07/16 10:01 Last Admin: 11/29/16 16:07 Dose: 125 mg Ferrous Sulfate (Feosol) 325 mg PO DAILY [facility] Last Admin: 11/29/16 09:59 Dose: 325 mg Furosemide (Lasix) 40 mg IVP DAILY [facility] Heparin Sodium (Porcine) (Heparin) 5,000 units SC Q12 [facility] Last Admin: 11/29/16 09:59 Dose: 5,000 units Hydralazine HCl (Apresoline) 50 mg PO BID [facility] Last Admin: 11/29/16 18:13 Dose: 50 mg Cefepime HCl (Maxipime Iv 1 Gm Premix) 1 gm in 50 mls @ 100 mls/hr IVPB Q24H [facility] Last Admin: 11/29/16 19:54 Dose: 100 mls/hr Vancomycin HCl 1 gm/ Sodium (Chloride) 250 mls @ 166.7 mls/hr IVPB TTS [facility] Stop: 12/11/16 11:30 Insulin Glargine (Lantus) 30 unit SC [facility] Losartan Potassium (Cozaar) 100 mg PO DAILY [facility] Last Admin: 11/29/16 10:01 Dose: Not Given Metolazone (Zaroxolyn) 5 mg PO DAILY [facility] Mupirocin (Bactroban Ointment) 0 gm TOP BID [facility] Last Admin: 11/29/16 19:56 Dose: 1 applic Potassium Chloride (K-Dur 20 Meq Er Tab) 20 meq PO ONCE ONE Stop: 11/29/16 22:44 Rosuvastatin Calcium (Crestor) 10 mg PO HS [facility] Last Admin: 11/28/16 22:25 Dose: 10 mg Sevelamer Carbonate (Renvela) 0.8 gm PO TIDCC [facility] Last Admin: 11/29/16 18:13 Dose: 0.8 gm Vitamin B Complex/Vit C/Folic Acid (Nephro-Alonzo) 1 tab PO DAILY [facility] Last Admin: 11/29/16 09:59 Dose: 1 tab - Labs Labs: PT 11.5 SECONDS (9.7-12.2) 11/28/16 14:27 INR 1.0 11/28/16 14:27 APTT 29 SECONDS (21-34) 11/28/16 14:27 - Constitutional Appears: Well, Non-toxic, No Acute Distress - Head Exam Head Exam: ATRAUMATIC - Eye Exam Eye Exam: EOMI, Normal appearance, PERRL - ENT Exam ENT Exam: Mucous Membranes Moist, Normal Exam - Neck Exam Neck Exam: Full ROM, Normal Inspection. absent: Lymphadenopathy - Respiratory Exam Respiratory Exam: Clear to Ausculation Bilateral, NORMAL BREATHING PATTERN. absent: Rales, Rhonchi, Wheezes, Respiratory Distress, Stridor - Cardiovascular Exam Cardiovascular Exam: REGULAR RHYTHM, +S1, +S2. absent: Murmur - GI/Abdominal Exam GI & Abdominal Exam: Soft, Normal Bowel Sounds. absent: Distended, Firm, Guarding, Tenderness - Extremities Exam Extremities Exam: Pedal Edema, Tenderness Additional comments: left arm is erythematous with dressing over av fistula wound. left hand has pitting edema. both legs have pitting edema. right heel has ulcer with dressing covering. - Back Exam Back Exam: NORMAL INSPECTION. absent: rash noted - Neurological Exam Neurological Exam: Alert, Awake, Oriented x3 - Psychiatric Exam Psychiatric exam: Normal Affect, Normal Mood - Skin Skin Exam: Warm. absent: Intact Additional comments: wound on left arm from av fistula b/l legs erythematous, rash, and erythema right heel ulcer Assessment and Plan - Assessment and Plan (Free Text) Assessment: (1) Wound infection after surgery Assessment and Plan: Temp 98.9 WBC 12.1 left arm wound culture prelim- staph aureus ID consulted, Dr Meng, f/u recs Surgury consulted, Dr Melendez, f/u vanc/zosyn given in ED Status: Acute (2) CKD (chronic kidney disease) stage 3, GFR 30-59 ml/min Assessment and Plan: HD on 11/29 via permacath con't home med: sevelamer 0.8g TID[facility] Status: Chronic (3) Anemia, chronic disease Assessment and Plan: Hg 7.5 Patient has been typed and screened ferrous sulfate 325mg po daily Status: Chronic (4) Hypertension Assessment and Plan: con't home med: hydralazine 50mg po bid losartan 100mg po daily Status: Chronic (5) Diabetes Assessment and Plan: accuchecks insulin glargine ACHS rosuvastatin 10mg po hs Status: Acute (6) Prophylactic measure Assessment and Plan: SCDs heparin 5000u sc q12 pepcid 20mg po bid renal diet Status: Acute <Benson Myrick Jr. - Last Filed: 12/02/16 10:44> Objective - Vital Signs/Intake and Output Vital Signs (last 24 hours): Temp Pulse Resp BP Pulse Ox 97.9 F 71 20 154/62 H 98 12/02/16 09:05 12/02/16 09:05 12/02/16 09:05 12/02/16 10:05 12/02/16 09:05 Intake and Output: 07/11/17 07/11/17 06:59 18:59 Intake Total 240 Balance 240 - Medications Medications: Current Medications Allopurinol (Zyloprim) 100 mg PO DAILY [facility] Last Admin: 12/02/16 10:12 Dose: Not Given Clotrimazole (Lotrimin 1%) 0 gm TOP BID [facility] Last Admin: 12/01/16 17:37 Dose: 1 applic Collagenase (Santyl) 30 gm TOP BID [facility] Last Admin: 12/01/16 17:37 Dose: 1 applic Docusate Sodium (Colace) 100 mg PO TID [facility] Last Admin: 12/02/16 10:10 Dose: Not Given Epoetin Maxwell (Procrit) 10,000 unit IV TTS [facility] Last Admin: 12/02/16 09:16 Dose: 10,000 unit Ergocalciferol (Drisdol 50,000 Intl Units Cap) 1 cap PO QWK [facility] Last Admin: 11/29/16 10:00 Dose: 1 cap Escitalopram Oxalate (Lexapro) 10 mg PO DAILY [facility] Last Admin: 12/02/16 10:12 Dose: Not Given Famotidine (Pepcid) 20 mg PO BID [facility] Last Admin: 12/02/16 10:12 Dose: Not Given Ferric Sodium Gluconate Complex (Ferrlecit) 125 mg IVPB DAILY [facility] Stop: 12/07/16 10:01 Last Admin: 12/02/16 09:17 Dose: 125 mg Ferrous Sulfate (Feosol) 325 mg PO DAILY [facility] Last Admin: 12/02/16 10:11 Dose: Not Given Furosemide (Lasix) 40 mg IVP DAILY [facility] Last Admin: 12/02/16 10:11 Dose: Not Given Heparin Sodium (Porcine) (Heparin) 5,000 units SC Q12 [facility] Last Admin: 12/02/16 10:11 Dose: Not Given Heparin Sodium (Porcine) (Heparin) 3,000 units IVP TTS [facility] Last Admin: 12/02/16 10:41 Dose: 3,000 units Heparin Sodium (Porcine) (Heparin) 3,700 units IVP TTS [facility] Last Admin: 12/02/16 10:42 Dose: 3,700 units Hydralazine HCl (Apresoline) 50 mg PO BID [facility] Last Admin: 12/02/16 10:10 Dose: Not Given Cefepime HCl (Maxipime Iv 1 Gm Premix) 1 gm in 50 mls @ 100 mls/hr IVPB Q24H [facility] Last Admin: 12/01/16 13:40 Dose: 100 mls/hr Vancomycin HCl 1 gm/ Sodium (Chloride) 250 mls @ 166.7 mls/hr IVPB TTS [facility] Stop: 12/11/16 11:30 Insulin Glargine (Lantus) 40 unit SC HS [facility] Last Admin: 12/01/16 21:36 Dose: 40 u Insulin Human Regular (Novolin R) 0 unit SC ACHS [facility] PRN Reason: Protocol Last Admin: 12/02/16 07:58 Dose: Not Given Losartan Potassium (Cozaar) 100 mg PO DAILY [facility] Last Admin: 12/02/16 10:11 Dose: Not Given Metolazone (Zaroxolyn) 5 mg PO DAILY [facility] Last Admin: 12/02/16 10:12 Dose: Not Given Mupirocin (Bactroban Ointment) 0 gm TOP BID [facility] Last Admin: 12/01/16 21:33 Dose: 1 applic Oxycodone/Acetaminophen (Percocet 5/325 Mg Tab) 1 tab PO Q6H PRN PRN Reason: Pain, severe (8-10) Stop: 12/03/16 19:16 Last Admin: 12/02/16 08:59 Dose: 1 tab Rosuvastatin Calcium (Crestor) 10 mg PO HS [facility] Last Admin: 12/01/16 21:35 Dose: 10 mg Sevelamer Carbonate (Renvela) 0.8 gm PO TIDCC [facility] Last Admin: 12/02/16 08:59 Dose: 0.8 gm Vitamin B Complex/Vit C/Folic Acid (Nephro-Alonzo) 1 tab PO DAILY [facility] Last Admin: 12/02/16 10:12 Dose: Not Given - Labs Labs: 12/02/16 07:05 12/02/16 07:05 PT 11.5 SECONDS (9.7-12.2) 11/28/16 14:27 INR 1.0 11/28/16 14:27 APTT 29 SECONDS (21-34) 11/28/16 14:27 Attending/Attestation - Attestation I have personally seen and examined this patient.: Yes I have fully participated in the care of the patient.: Yes I have reviewed all pertinent clinical information, including history, physical exam and plan: Yes Notes (Text): 12/02/16 10:44 Agree with resident note and findings
[2016-11-29] MEDS ORDERED: (Novolog) Insulin Aspart, Recombinant 100 u/ml 10 ml vial SC ONE (21:57)
[2016-11-29] MEDS: Clotrimazole 1% Cream(30 gm) TOP SCH (21:58)
[2016-11-29] MEDS ORDERED: Potassium Chloride 20 mEq ER Tab PO ONE (22:43)
[2016-11-30 08:12] LABS: ALBUMIN 3.2 g/dL (3.5-5.0)
[2016-11-30] MEDS: Sevelamer Carb 0.8 gm/Packet PO SCH ×3 (08:14→17:16)
[2016-11-30 08:15] LABS: ALB/GLOB RATIO 1.1 (1.0-2.1)
[2016-11-30 08:16] LABS: CALCIUM 8.5 mg/dl (8.6-10.4); MAGNESIUM 2.1 mg/dL (1.6-2.3)
[2016-11-30 08:30] LABS: BASO % 0.4 % (0.0-2.0); EOS # 0.6 K/uL (0.0-0.7); EOS % 4.9 % (0.0-4.0); HEMOGLOBIN 7.8 g/dL (11.0-16.0); LYMPH # 1.7 K/uL (1.0-4.3); LYMPH % 14.6 % (20.0-40.0); MEAN CELL VOLUME 96.6 fL (81.0-99.0); MEAN CORPUSCULAR HEMOGLOBIN 29.9 pg (27.0-31.0); MEAN PLATELET VOLUME 10.2 fL (7.2-11.7); MONO # 1.4 K/uL (0.0-0.8); MONO % 11.6 % (0.0-10.0); NEUT # 8.1 K/uL (1.8-7.0); NEUT % 68.5 % (50.0-75.0); NRBC % 0.8 % (0.0-2.0); RBC 2.6 Mil/uL (3.80-5.20); RED CELL DISTRIBUTION WIDTH 20.1 % (11.5-14.5); WHITE BLOOD COUNT 11.9 K/uL (4.8-10.8)
[2016-11-30] MEDS: Multivitamin Vitamin B Complex (Nephro-Vite) Tab PO SCH (09:56)
[2016-11-30] MEDS: Collagenase 250 Units/gm Ointment(30 gm) TOP SCH ×3 (09:57→22:35)
[2016-11-30] MEDS: Ferric Sodium Gluconat Complex 62.5 mg/5 ml Vial IVPB SCH (09:57)
[2016-11-30] MEDS: metOLazone 5 MG TAB PO SCH ×2 (09:58→10:00)
[2016-11-30] MEDS: Clotrimazole 1% Cream(30 gm) TOP SCH ×2 (09:59→17:18)
--- NOTE | 2016-11-30 10:24 | CP.PCM.PN ---
Subjective - Date & Time of Evaluation Date of Evaluation: 11/30/16 Time of Evaluation: 08:00 - Subjective Subjective: PGY1- Medicine Note- Dr. Myrick's Service Patient seen and examined at bedside and in no acute distress. Patient has pain in right arm and both legs. She denies all other complaints including shortness of breath, chest pain, palpitations, abdominal pain, nausea, vomiting, diarrhea , constipation. Objective - Vital Signs/Intake and Output Vital Signs (last 24 hours): Temp Pulse Resp BP Pulse Ox 98.2 F 77 20 167/62 H 97 11/30/16 07:15 11/30/16 07:15 11/30/16 07:15 11/30/16 09:56 11/30/16 07:15 - Medications Medications: Current Medications Allopurinol (Zyloprim) 100 mg PO DAILY [facility] Last Admin: 11/30/16 09:58 Dose: 100 mg Clotrimazole (Lotrimin 1%) 0 gm TOP BID [facility] Last Admin: 11/30/16 09:59 Dose: 1 applic Collagenase (Santyl) 30 gm TOP BID [facility] Last Admin: 11/30/16 09:57 Dose: 1 applic Epoetin Maxwell (Procrit) 10,000 unit IV TTS [facility] Last Admin: 11/29/16 17:03 Dose: 10,000 unit Ergocalciferol (Drisdol 50,000 Intl Units Cap) 1 cap PO QWK [facility] Last Admin: 11/29/16 10:00 Dose: 1 cap Escitalopram Oxalate (Lexapro) 10 mg PO DAILY [facility] Last Admin: 11/30/16 09:58 Dose: 10 mg Famotidine (Pepcid) 20 mg PO BID [facility] Last Admin: 11/30/16 09:58 Dose: 20 mg Ferric Sodium Gluconate Complex (Ferrlecit) 125 mg IVPB DAILY [facility] Stop: 12/07/16 10:01 Last Admin: 11/30/16 09:57 Dose: 125 mg Ferrous Sulfate (Feosol) 325 mg PO DAILY [facility] Last Admin: 11/30/16 09:58 Dose: 325 mg Furosemide (Lasix) 40 mg IVP DAILY [facility] Last Admin: 11/30/16 09:56 Dose: 40 mg Heparin Sodium (Porcine) (Heparin) 5,000 units SC Q12 [facility] Last Admin: 11/30/16 09:56 Dose: 5,000 units Hydralazine HCl (Apresoline) 50 mg PO BID [facility] Last Admin: 11/30/16 09:58 Dose: 50 mg Cefepime HCl (Maxipime Iv 1 Gm Premix) 1 gm in 50 mls @ 100 mls/hr IVPB Q24H [facility] Last Admin: 11/29/16 19:54 Dose: 100 mls/hr Vancomycin HCl 1 gm/ Sodium (Chloride) 250 mls @ 166.7 mls/hr IVPB TTS [facility] Stop: 12/11/16 11:30 Insulin Glargine (Lantus) 30 unit SC HS [facility] Last Admin: 11/29/16 21:54 Dose: 30 u Losartan Potassium (Cozaar) 100 mg PO DAILY [facility] Last Admin: 11/30/16 09:58 Dose: 100 mg Metolazone (Zaroxolyn) 5 mg PO DAILY [facility] Last Admin: 11/30/16 09:58 Dose: 5 mg Mupirocin (Bactroban Ointment) 0 gm TOP BID [facility] Last Admin: 11/29/16 19:56 Dose: 1 applic Rosuvastatin Calcium (Crestor) 10 mg PO HS [facility] Last Admin: 11/29/16 21:52 Dose: 10 mg Sevelamer Carbonate (Renvela) 0.8 gm PO TIDCC [facility] Last Admin: 11/30/16 08:14 Dose: 0.8 gm Vitamin B Complex/Vit C/Folic Acid (Nephro-Alonzo) 1 tab PO DAILY [facility] Last Admin: 11/30/16 09:56 Dose: 1 tab - Labs Labs: 11/30/16 07:40 11/30/16 07:40 PT 11.5 SECONDS (9.7-12.2) 11/28/16 14:27 INR 1.0 11/28/16 14:27 APTT 29 SECONDS (21-34) 11/28/16 14:27 - Constitutional Appears: Well, Non-toxic, No Acute Distress - Head Exam Head Exam: ATRAUMATIC, NORMAL INSPECTION, NORMOCEPHALIC - Eye Exam Eye Exam: EOMI, Normal appearance, PERRL - ENT Exam ENT Exam: Mucous Membranes Moist, Normal Exam - Neck Exam Neck Exam: Full ROM, Normal Inspection. absent: Lymphadenopathy - Respiratory Exam Respiratory Exam: Clear to Ausculation Bilateral, NORMAL BREATHING PATTERN. absent: Rales, Rhonchi, Wheezes, Respiratory Distress, Stridor - Cardiovascular Exam Cardiovascular Exam: Bradycardia, REGULAR RHYTHM, RRR. absent: Rubs, Murmur - GI/Abdominal Exam GI & Abdominal Exam: Soft, Normal Bowel Sounds. absent: Distended, Firm, Guarding - Extremities Exam Extremities Exam: Pedal Edema, Tenderness. absent: Normal Inspection Additional comments: left hand edema. Left arm av fistula wound draining and erythematous both legs erythematous and edematous - Back Exam Back Exam: NORMAL INSPECTION - Neurological Exam Neurological Exam: Alert, Awake, Oriented x3 - Psychiatric Exam Psychiatric exam: Normal Affect, Normal Mood - Skin Skin Exam: Warm. absent: Intact Additional comments: left arm av fistula wound b/l leg edema and erythema Assessment and Plan - Assessment and Plan (Free Text) Assessment: (1) Wound infection after surgery Assessment and Plan: Temp 98.9 WBC dropping 12.1--11.9 on 11/30 left arm wound culture prelim- staph aureus ID consulted, Dr Meng, Vanco and Zosyn recommended Surgury consulted, Dr Melendez, help appreciated vanc/zosyn given in ED blood culture negative 11/29 foot wound: Hyperkaratotic tissue debrided from periwound area with #15 blade without incident and wound cleansed with normal saline Advised patient's to discontinue applying Medihoney to site Wound dressed with 4x4 gauze and kirlix Order for prevlon offloading boots placed Santyl to be applied to ulcer site BID Status: Acute (2) CKD (chronic kidney disease) stage 3, GFR 30-59 ml/min Assessment and Plan: HD on 11/29 via permacath con't home med: sevelamer 0.8g [facility] Status: Chronic (3) Lower Extremity Edema f/u dopplers (4) Anemia, chronic disease Assessment and Plan: Hg 7.5 Patient has been typed and screened ferrous sulfate 325mg po daily Status: Chronic (5) Hypertension Assessment and Plan: con't home med: hydralazine 50mg po bid losartan 100mg po daily Status: Chronic (6) Diabetes Assessment and Plan: accuchecks ISS Lantus 50 u sc daily (changed from 30 on 11/30) rosuvastatin 10mg po hs Status: Acute (7) Prophylactic measure Assessment and Plan: SCDs heparin 5000u sc q12 pepcid 20mg po bid renal diet Status: Acute
[2016-11-30] MEDS: Cefepime IV 1 gm in Dextrose 1 GM/50 ML BAG IVPB SCH (12:41)
--- NOTE | 2016-11-30 15:49 | CP.PCM.PN ---
Subjective - Date & Time of Evaluation Date of Evaluation: 11/30/16 Time of Evaluation: 13:25 - Subjective Subjective: 71 y/o female seen at bedside for left foot lateral and plantar ulcer. Pt is AAOx3 and is in NAD. Pt denies of any acute overnight events. Patient states that it has been present for two or three months. Pt denies of any pain to the site. Patient denies any recent F/N/V/C/SOB. Patient denies any further pedal complaints at this time. Objective - Vital Signs/Intake and Output Vital Signs (last 24 hours): Temp Pulse Resp BP Pulse Ox 98.2 F 77 20 167/62 H 97 11/30/16 07:15 11/30/16 07:15 11/30/16 07:15 11/30/16 09:56 11/30/16 07:15 Intake and Output: 11/30/16 11/30/16 06:59 18:59 Intake Total 450 Balance 450 - Medications Medications: Current Medications Allopurinol (Zyloprim) 100 mg PO DAILY [facility] Last Admin: 11/30/16 09:58 Dose: 100 mg Clotrimazole (Lotrimin 1%) 0 gm TOP BID [facility] Last Admin: 11/30/16 09:59 Dose: 1 applic Collagenase (Santyl) 30 gm TOP BID [facility] Last Admin: 11/30/16 09:57 Dose: 1 applic Epoetin Maxwell (Procrit) 10,000 unit IV TTS [facility] Last Admin: 11/29/16 17:03 Dose: 10,000 unit Ergocalciferol (Drisdol 50,000 Intl Units Cap) 1 cap PO QWK [facility] Last Admin: 11/29/16 10:00 Dose: 1 cap Escitalopram Oxalate (Lexapro) 10 mg PO DAILY [facility] Last Admin: 11/30/16 09:58 Dose: 10 mg Famotidine (Pepcid) 20 mg PO BID [facility] Last Admin: 11/30/16 09:58 Dose: 20 mg Ferric Sodium Gluconate Complex (Ferrlecit) 125 mg IVPB DAILY [facility] Stop: 12/07/16 10:01 Last Admin: 11/30/16 09:57 Dose: 125 mg Ferrous Sulfate (Feosol) 325 mg PO DAILY [facility] Last Admin: 11/30/16 09:58 Dose: 325 mg Furosemide (Lasix) 40 mg IVP DAILY [facility] Last Admin: 11/30/16 09:56 Dose: 40 mg Heparin Sodium (Porcine) (Heparin) 5,000 units SC Q12 [facility] Last Admin: 11/30/16 09:56 Dose: 5,000 units Hydralazine HCl (Apresoline) 50 mg PO BID [facility] Last Admin: 11/30/16 09:58 Dose: 50 mg Cefepime HCl (Maxipime Iv 1 Gm Premix) 1 gm in 50 mls @ 100 mls/hr IVPB Q24H [facility] Last Admin: 11/30/16 12:41 Dose: 100 mls/hr Vancomycin HCl 1 gm/ Sodium (Chloride) 250 mls @ 166.7 mls/hr IVPB TTS [facility] Stop: 12/11/16 11:30 Insulin Glargine (Lantus) 30 unit SC HS [facility] Last Admin: 11/29/16 21:54 Dose: 30 u Losartan Potassium (Cozaar) 100 mg PO DAILY [facility] Last Admin: 11/30/16 09:58 Dose: 100 mg Metolazone (Zaroxolyn) 5 mg PO DAILY [facility] Last Admin: 11/30/16 10:00 Dose: Not Given Mupirocin (Bactroban Ointment) 0 gm TOP BID [facility] Last Admin: 11/30/16 10:27 Dose: 1 applic Rosuvastatin Calcium (Crestor) 10 mg PO HS [facility] Last Admin: 11/29/16 21:52 Dose: 10 mg Sevelamer Carbonate (Renvela) 0.8 gm PO TIDCC [facility] Last Admin: 11/30/16 11:59 Dose: 0.8 gm Vitamin B Complex/Vit C/Folic Acid (Nephro-Alonzo) 1 tab PO DAILY [facility] Last Admin: 11/30/16 09:56 Dose: 1 tab - Labs Labs: 11/30/16 07:40 11/30/16 07:40 PT 11.5 SECONDS (9.7-12.2) 11/28/16 14:27 INR 1.0 11/28/16 14:27 APTT 29 SECONDS (21-34) 11/28/16 14:27 - Constitutional Appears: Well, Non-toxic, No Acute Distress - Extremities Exam Additional comments: VASC: DP/PT pulses palpable 1/4 b/l. CFT < 3 seconds to all digits, temperature gradient is warm to cool. Moderate pitting edema noted to b/l lower extremities DERM: Velazco stage 1 ulceration seen at lateral and plantar heel on left foot. No purulent drainage, malodor, undermining, tracking, periwound erythema or other clinical signs of infection noted to the area. Hyperkeratotic periwound area noted with mild maceration seen at plantar aspect of wound. Erythematous skin changes noted to anterior shins b/l (possible hemosiderin deposition). No other open lesions noted at this time. NEURO: Epicritic and protective sensation grossly intact b/l ORTHO: Mild pain on palpation noted to ulcer site of left foot - Neurological Exam Neurological Exam: Alert, Awake, Oriented x3 - Psychiatric Exam Psychiatric exam: Normal Affect, Normal Mood Assessment and Plan - Assessment and Plan (Free Text) Assessment: 71 year old female seen at bedside with left foot ulcer secondary to DM, ESRD, CHF and CKD Plan: Pt evaluated and chart reviewd Pt discussed in details with attending Dr. Molina Labs and vitals reviewed (afebrile, WBC @ 11.9) Wound dressed with Santyl, 4x4 gauze and kerlix Order for prevlon offloading boots placed Continue with abx per ID Podiatry will continue to follow while in house
[2016-11-30] MEDS: (Novolin R) Insulin Human Regular 100 units/ml vial SC SCH ×2 (18:13→21:48)
[2016-11-30] MEDS: Oxycodone/Acetaminophen 5/325 mg Tab PO PRN (19:29)
[2016-11-30] MEDS: (Lantus) Insulin Glargine, Recombinant SC SCH (21:47)
--- NOTE | 2016-12-01 07:53 | CP.PCM.PN ---
Subjective - Date & Time of Evaluation Date of Evaluation: 12/01/16 Time of Evaluation: 07:51 - Subjective Subjective: 71 y/o female seen at bedside for left foot lateral and plantar ulcer. Pt is AAOx3 and is in NAD. Pt denies of any acute overnight events. Patient states that it has been present for two or three months. Pt denies of any pain to the site. Patient denies any recent F/N/V/C/SOB. Patient denies any further pedal complaints at this time. Objective - Vital Signs/Intake and Output Vital Signs (last 24 hours): Temp Pulse Resp BP Pulse Ox 98.2 F 71 20 149/66 96 12/01/16 07:20 12/01/16 07:20 12/01/16 07:20 12/01/16 07:20 12/01/16 07:20 Intake and Output: 12/01/16 12/01/16 06:59 18:59 Intake Total 180 Balance 180 - Medications Medications: Current Medications Allopurinol (Zyloprim) 100 mg PO DAILY [facility] Last Admin: 11/30/16 09:58 Dose: 100 mg Clotrimazole (Lotrimin 1%) 0 gm TOP BID [facility] Last Admin: 11/30/16 17:18 Dose: 1 applic Collagenase (Santyl) 30 gm TOP BID [facility] Last Admin: 11/30/16 22:35 Dose: 1 applic Docusate Sodium (Colace) 100 mg PO BID [facility] Epoetin Maxwell (Procrit) 10,000 unit IV TTS [facility] Last Admin: 11/29/16 17:03 Dose: 10,000 unit Ergocalciferol (Drisdol 50,000 Intl Units Cap) 1 cap PO QWK [facility] Last Admin: 11/29/16 10:00 Dose: 1 cap Escitalopram Oxalate (Lexapro) 10 mg PO DAILY [facility] Last Admin: 11/30/16 09:58 Dose: 10 mg Famotidine (Pepcid) 20 mg PO BID [facility] Last Admin: 11/30/16 17:16 Dose: 20 mg Ferric Sodium Gluconate Complex (Ferrlecit) 125 mg IVPB DAILY [facility] Stop: 12/07/16 10:01 Last Admin: 11/30/16 09:57 Dose: 125 mg Ferrous Sulfate (Feosol) 325 mg PO DAILY [facility] Last Admin: 11/30/16 09:58 Dose: 325 mg Furosemide (Lasix) 40 mg IVP DAILY [facility] Last Admin: 11/30/16 09:56 Dose: 40 mg Heparin Sodium (Porcine) (Heparin) 5,000 units SC Q12 [facility] Last Admin: 11/30/16 21:47 Dose: 5,000 units Hydralazine HCl (Apresoline) 50 mg PO BID [facility] Last Admin: 11/30/16 17:16 Dose: 50 mg Cefepime HCl (Maxipime Iv 1 Gm Premix) 1 gm in 50 mls @ 100 mls/hr IVPB Q24H [facility] Last Admin: 11/30/16 12:41 Dose: 100 mls/hr Vancomycin HCl 1 gm/ Sodium (Chloride) 250 mls @ 166.7 mls/hr IVPB TTS [facility] Stop: 12/11/16 11:30 Insulin Glargine (Lantus) 40 unit SC HS [facility] Last Admin: 11/30/16 21:47 Dose: 40 u Insulin Human Regular (Novolin R) 0 unit SC ACHS [facility] PRN Reason: Protocol Last Admin: 11/30/16 21:48 Dose: 4 unit Losartan Potassium (Cozaar) 100 mg PO DAILY [facility] Last Admin: 11/30/16 09:58 Dose: 100 mg Metolazone (Zaroxolyn) 5 mg PO DAILY [facility] Last Admin: 11/30/16 10:00 Dose: Not Given Mupirocin (Bactroban Ointment) 0 gm TOP BID [facility] Last Admin: 11/30/16 21:46 Dose: 1 applic Oxycodone/Acetaminophen (Percocet 5/325 Mg Tab) 1 tab PO Q6H PRN PRN Reason: Pain, severe (8-10) Stop: 12/03/16 19:16 Last Admin: 11/30/16 19:29 Dose: 1 tab Rosuvastatin Calcium (Crestor) 10 mg PO HS [facility] Last Admin: 11/30/16 21:47 Dose: 10 mg Sevelamer Carbonate (Renvela) 0.8 gm PO TIDCC [facility] Last Admin: 11/30/16 17:16 Dose: 0.8 gm Vitamin B Complex/Vit C/Folic Acid (Nephro-Alonzo) 1 tab PO DAILY [facility] Last Admin: 11/30/16 09:56 Dose: 1 tab - Labs Labs: 11/30/16 07:40 11/30/16 07:40 PT 11.5 SECONDS (9.7-12.2) 11/28/16 14:27 INR 1.0 11/28/16 14:27 APTT 29 SECONDS (21-34) 11/28/16 14:27 - Constitutional Appears: Well, Non-toxic, No Acute Distress - Extremities Exam Additional comments: VASC: DP/PT pulses palpable 1/4 b/l. CFT < 3 seconds to all digits, temperature gradient is warm to cool. Moderate pitting edema noted to b/l lower extremities DERM: Velazco stage 1 ulceration seen at lateral and plantar heel on left foot. No purulent drainage, malodor, undermining, tracking, periwound erythema or other clinical signs of infection noted to the area. Hyperkeratotic periwound area noted with mild maceration seen at plantar aspect of wound. Erythematous skin changes noted to anterior shins b/l (possible hemosiderin deposition). No other open lesions noted at this time. NEURO: Epicritic and protective sensation grossly intact b/l ORTHO: Mild pain on palpation noted to ulcer site of left foot - Neurological Exam Neurological Exam: Alert, Awake, Oriented x3 - Psychiatric Exam Psychiatric exam: Normal Affect, Normal Mood Assessment and Plan - Assessment and Plan (Free Text) Assessment: 71 year old female seen at bedside with left foot ulcer secondary to DM, ESRD, CHF and CKD Plan: Pt evaluated and chart reviewd Pt discussed in details with attending Dr. Molina Labs and vitals reviewed (afebrile) CUCO/PVR 10/22/16: left: .35, right .98 left foot heel ulcer dressed with Santyl, 4x4 gauze and kerlix cont. wearing offloading boots while in bed Continue with abx per ID Podiatry will continue to follow while in house
[2016-12-01 07:55] LABS: BASO # 0.1 K/uL (0.0-0.2); BASO % 1.2 % (0.0-2.0); EOS % 8.5 % (0.0-4.0); HEMOGLOBIN 7.8 g/dL (11.0-16.0); LYMPH # 1.6 K/uL (1.0-4.3); LYMPH % 13.7 % (20.0-40.0); MEAN CELL VOLUME 96.8 fL (81.0-99.0); MEAN CORPUSCULAR HEMOGLOBIN 30.1 pg (27.0-31.0); MEAN CORPUSCULAR HGB CONC 31.1 g/dL (33.0-37.0); MEAN PLATELET VOLUME 9.7 fL (7.2-11.7); MONO # 1.3 K/uL (0.0-0.8); MONO % 11.4 % (0.0-10.0); NEUT # 7.4 K/uL (1.8-7.0); NEUT % 65.2 % (50.0-75.0); NRBC % 0.5 % (0.0-2.0); RBC 2.59 Mil/uL (3.80-5.20); RED CELL DISTRIBUTION WIDTH 19.8 % (11.5-14.5); WHITE BLOOD COUNT 11.4 K/uL (4.8-10.8)
[2016-12-01 07:55] LABS: HEPATITIS B SURFACE AG NEGATIVE (NEGATIVE)
[2016-12-01 08:00] LABS: HEPATITIS B CORE AB NEGATIVE (NEGATIVE)
[2016-12-01 08:04] LABS: ALBUMIN 3.1 g/dL (3.5-5.0)
[2016-12-01] MEDS: Sevelamer Carb 0.8 gm/Packet PO SCH ×3 (08:06→17:38)
[2016-12-01 08:07] LABS: ALB/GLOB RATIO 1.1 (1.0-2.1)
[2016-12-01 08:08] LABS: CALCIUM 8.8 mg/dl (8.6-10.4); MAGNESIUM 2.3 mg/dL (1.6-2.3)
[2016-12-01] MEDS: (Novolin R) Insulin Human Regular 100 units/ml vial SC SCH ×4 (08:08→21:36)
[2016-12-01] MEDS ORDERED: POLYETHYLENE GLYCOL 3350 17 GM/Dose PACKET PO ONE (09:10)
[2016-12-01] MEDS: metOLazone 5 MG TAB PO SCH (09:55)
[2016-12-01] MEDS: Multivitamin Vitamin B Complex (Nephro-Vite) Tab PO SCH (09:55)
[2016-12-01] MEDS: Ferric Sodium Gluconat Complex 62.5 mg/5 ml Vial IVPB SCH (09:56)
[2016-12-01] MEDS: Collagenase 250 Units/gm Ointment(30 gm) TOP SCH ×2 (10:37→17:37)
[2016-12-01] MEDS: Clotrimazole 1% Cream(30 gm) TOP SCH ×2 (10:37→17:37)
--- NOTE | 2016-12-01 10:49 | CARD ---
APPROVED REPORT EKG Measurement Heart [id number] VA [id number] [id number] <Conclusion> Normal sinus rhythm T wave abnormality, consider anterolateral ischemia Prolonged QT Abnormal ECG
--- NOTE | 2016-12-01 11:59 | CP.PCM.PN ---
Subjective - Date & Time of Evaluation Date of Evaluation: 12/01/16 Time of Evaluation: 11:59 - Subjective Subjective: C/O PAIN LEFT ARM AVF SITE. CELLULITUS/DRAINAGE AVF SITE . DRESSING IN PLACE. AT BEDSIDE. STATES SURGERY TOLD HIM ,SHE WILL NEED TO CLEAN UP WOUND AGAIN Objective - Vital Signs/Intake and Output Vital Signs (last 24 hours): Temp Pulse Resp BP Pulse Ox 98.2 F 71 20 149/66 96 12/01/16 07:20 12/01/16 07:20 12/01/16 07:20 12/01/16 09:55 12/01/16 07:20 Intake and Output: 12/01/16 12/01/16 06:59 18:59 Intake Total 180 Balance 180 - Medications Medications: Current Medications Allopurinol (Zyloprim) 100 mg PO DAILY [facility] Last Admin: 12/01/16 09:55 Dose: 100 mg Clotrimazole (Lotrimin 1%) 0 gm TOP BID [facility] Last Admin: 12/01/16 10:37 Dose: 1 applic Collagenase (Santyl) 30 gm TOP BID [facility] Last Admin: 12/01/16 10:37 Dose: 1 applic Docusate Sodium (Colace) 100 mg PO BID [facility] Last Admin: 12/01/16 09:55 Dose: 100 mg Epoetin Maxwell (Procrit) 10,000 unit IV TTS [facility] Last Admin: 11/29/16 17:03 Dose: 10,000 unit Ergocalciferol (Drisdol 50,000 Intl Units Cap) 1 cap PO QWK [facility] Last Admin: 11/29/16 10:00 Dose: 1 cap Escitalopram Oxalate (Lexapro) 10 mg PO DAILY [facility] Last Admin: 12/01/16 09:55 Dose: 10 mg Famotidine (Pepcid) 20 mg PO BID [facility] Last Admin: 12/01/16 09:55 Dose: 20 mg Ferric Sodium Gluconate Complex (Ferrlecit) 125 mg IVPB DAILY [facility] Stop: 12/07/16 10:01 Last Admin: 12/01/16 09:56 Dose: 125 mg Ferrous Sulfate (Feosol) 325 mg PO DAILY [facility] Last Admin: 12/01/16 09:55 Dose: 325 mg Furosemide (Lasix) 40 mg IVP DAILY [facility] Last Admin: 12/01/16 09:55 Dose: 40 mg Heparin Sodium (Porcine) (Heparin) 5,000 units SC Q12 [facility] Last Admin: 12/01/16 09:55 Dose: 5,000 units Hydralazine HCl (Apresoline) 50 mg PO BID [facility] Last Admin: 12/01/16 09:55 Dose: 50 mg Cefepime HCl (Maxipime Iv 1 Gm Premix) 1 gm in 50 mls @ 100 mls/hr IVPB Q24H [facility] Last Admin: 11/30/16 12:41 Dose: 100 mls/hr Vancomycin HCl 1 gm/ Sodium (Chloride) 250 mls @ 166.7 mls/hr IVPB TTS [facility] Stop: 12/11/16 11:30 Insulin Glargine (Lantus) 40 unit SC HS [facility] Last Admin: 11/30/16 21:47 Dose: 40 u Insulin Human Regular (Novolin R) 0 unit SC ACHS [facility] PRN Reason: Protocol Last Admin: 12/01/16 08:08 Dose: Not Given Losartan Potassium (Cozaar) 100 mg PO DAILY [facility] Last Admin: 12/01/16 09:55 Dose: 100 mg Metolazone (Zaroxolyn) 5 mg PO DAILY [facility] Last Admin: 12/01/16 09:55 Dose: 5 mg Mupirocin (Bactroban Ointment) 0 gm TOP BID [facility] Last Admin: 12/01/16 10:37 Dose: 1 applic Oxycodone/Acetaminophen (Percocet 5/325 Mg Tab) 1 tab PO Q6H PRN PRN Reason: Pain, severe (8-10) Stop: 12/03/16 19:16 Last Admin: 11/30/16 19:29 Dose: 1 tab Rosuvastatin Calcium (Crestor) 10 mg PO HS [facility] Last Admin: 11/30/16 21:47 Dose: 10 mg Sevelamer Carbonate (Renvela) 0.8 gm PO TIDCC [facility] Last Admin: 12/01/16 08:06 Dose: 0.8 gm Vitamin B Complex/Vit C/Folic Acid (Nephro-Alonzo) 1 tab PO DAILY [facility] Last Admin: 12/01/16 09:55 Dose: 1 tab - Labs Labs: 12/01/16 07:14 12/01/16 07:14 PT 11.5 SECONDS (9.7-12.2) 11/28/16 14:27 INR 1.0 11/28/16 14:27 APTT 29 SECONDS (21-34) 11/28/16 14:27 - Constitutional Appears: No Acute Distress - Head Exam Head Exam: NORMAL INSPECTION - Eye Exam Eye Exam: EOMI, PERRL - ENT Exam ENT Exam: Normal Oropharynx - Neck Exam Neck Exam: Normal Inspection - Respiratory Exam Respiratory Exam: Clear to Ausculation Bilateral - Cardiovascular Exam Cardiovascular Exam: REGULAR RHYTHM, +S1, +S2 - GI/Abdominal Exam GI & Abdominal Exam: Soft, Normal Bowel Sounds - Extremities Exam Extremities Exam: Normal Capillary Refill, Pedal Edema (2+). absent: Calf Tenderness Additional comments: LT AVF SITE DRESSING IN PLACE Left hand edema, left av fistual wound draining both legs erythematous and edematous - Neurological Exam Neurological Exam: Awake, CN II-XII Intact, Oriented x3 - Psychiatric Exam Psychiatric exam: Normal Mood - Skin Skin Exam: Normal Color, Warm Assessment and Plan (1) Wound infection after surgery Assessment & Plan: WOUND CULTURES +VE SERRATIA MARCESCENS/ MSSA -S- CEFEPIME/AND vANCO. CONTINUE ON iv CEFEPIME 1 G EVERY 24 HOURLY. 11/29/16 CONTINUE iv VANCOMYCIN 1 G POST EACH HEMODIALYSIS TTS X 5 DOSES FOR STAPH/ STREPT COVERAGE PATIENT FOR DEBRIDEMENT AND FLUSHING OF THE WOUND PER SURGERY. Status: Acute (2) Cellulitis Assessment & Plan: LWC PER VASCULAR SURGERY Status: Acute (3) Foot ulcer Assessment & Plan: PATIENT ALSO HAS A LEFT LATERAL PLANTAR ULCER X 2 MONTHS ULCER 1CM ,DRY ,-VE DRAINAGE. LWC PER PODIATRY. Status: Acute (4) Peripheral vascular disease Status: Acute (5) Anemia, chronic disease Status: Chronic (6) CKD (chronic kidney disease) stage 3, GFR 30-59 ml/min Status: Chronic (7) DM2 (diabetes mellitus, type 2) Status: Chronic
[2016-12-01] MEDS: Cefepime IV 1 gm in Dextrose 1 GM/50 ML BAG IVPB SCH (13:40)
--- NOTE | 2016-12-01 14:41 | VASCLAB ---
PROCEDURE: Lower Extremity Venous Duplex Exam. HISTORY: edema PRIORS: None. TECHNIQUE: Bilateral common femoral, femoral, popliteal and posterior tibial, peroneal and great saphenous veins were evaluated. Flow was assessed with color Doppler, compressibility, assessment of phasic flow and augmentation response. Report prepared by ANGELA Barkley, RVT FINDINGS: RIGHT: 1. Common Femoral Vein: 1.1. Compressibility - Fully compressible: Thrombus - None : Flow - Phasic: Augmentation -Normal: Reflux - None. 2. Femoral Vein: 2.1. Compressibility - Fully compressible: Thrombus - None : Flow - Phasic: Augmentation -Normal: Reflux - None. 3. Popliteal Vein: 3.1. Compressibility - Fully compressible: Thrombus - None : Flow - Phasic: Augmentation -Normal: Reflux - None. 4. Posterior Tibial Vein: 4.1. Compressibility - : Thrombus - : Flow - : Augmentation -: Reflux - . 5. Peroneal Vein: 5.1. Compressibility - : Thrombus - : Flow - : Augmentation -: Reflux - . 6. Great Saphenous Vein: 6.1. Compressibility - Fully compressible: Thrombus - None: Flow - Phasic: Augmentation - Normal: Reflux - None. LEFT: 1. Common Femoral Vein: 1.1. Compressibility - Fully compressible: Thrombus - None: Flow - Phasic: Augmentation -Normal: Reflux - None. 2. Femoral Vein: 2.1. Compressibility - Fully compressible: Thrombus - None: Flow - Phasic: Augmentation -Normal: Reflux - None. 3. Popliteal Vein: 3.1. Compressibility - Fully compressible: Thrombus - None : Flow - Phasic: Augmentation -Normal: Reflux - None. 4. Posterior Tibial Vein: 4.1. Compressibility - : Thrombus - : Flow - : Augmentation -: Reflux - . 5. Peroneal Vein: 5.1. Compressibility - : Thrombus - : Flow - : Augmentation -: Reflux - . 6. Great Saphenous Vein: 6.1. Compressibility - Fully compressible: Thrombus - None: Flow - Phasic: Augmentation - Normal: Reflux - None. OTHER FINDINGS: Due to swelling in the calf, bilateral peroneal and posterior tibial veins were not visualized. IMPRESSION: Right: No evidence of deep or superficial vein thrombosis of the right lower extremity. Normal valve function noted of the right side. Left: No evidence of deep or superficial vein thrombosis of the left lower extremity. Normal valve function noted of the left side.
[2016-12-01] MEDS: Oxycodone/Acetaminophen 5/325 mg Tab PO PRN (14:47)
--- NOTE | 2016-12-01 15:54 | CP.PCM.PN ---
<Wanda Marquez - Last Filed: 12/01/16 16:20> Subjective - Date & Time of Evaluation Date of Evaluation: 12/01/16 Time of Evaluation: 07:00 - Subjective Subjective: PGY1- Medicine Note- Dr. Myrick's Service Patient was seen today at bedside in no acute distress with at bedside. No overnight events. Reports still in "too much" pain from her arm and legs. Denies urinary symptoms, admits BM early in the AM with diffuse abdominal discomfort and pressure. Minimal bowel movement of normal texture and color. Denies chest pain, palpitations, sob, back pain. Objective - Vital Signs/Intake and Output Vital Signs (last 24 hours): Temp Pulse Resp BP Pulse Ox 98.2 F 71 20 149/66 96 12/01/16 07:20 12/01/16 07:20 12/01/16 07:20 12/01/16 09:55 12/01/16 07:20 Intake and Output: 12/01/16 12/01/16 06:59 18:59 Intake Total 180 630 Balance 180 630 - Medications Medications: Current Medications Allopurinol (Zyloprim) 100 mg PO DAILY [facility] Last Admin: 12/01/16 09:55 Dose: 100 mg Clotrimazole (Lotrimin 1%) 0 gm TOP BID [facility] Last Admin: 12/01/16 10:37 Dose: 1 applic Collagenase (Santyl) 30 gm TOP BID [facility] Last Admin: 12/01/16 10:37 Dose: 1 applic Docusate Sodium (Colace) 100 mg PO BID [facility] Last Admin: 12/01/16 09:55 Dose: 100 mg Epoetin Maxwell (Procrit) 10,000 unit IV TTS [facility] Last Admin: 11/29/16 17:03 Dose: 10,000 unit Ergocalciferol (Drisdol 50,000 Intl Units Cap) 1 cap PO QWK [facility] Last Admin: 11/29/16 10:00 Dose: 1 cap Escitalopram Oxalate (Lexapro) 10 mg PO DAILY [facility] Last Admin: 12/01/16 09:55 Dose: 10 mg Famotidine (Pepcid) 20 mg PO BID [facility] Last Admin: 12/01/16 09:55 Dose: 20 mg Ferric Sodium Gluconate Complex (Ferrlecit) 125 mg IVPB DAILY [facility] Stop: 12/07/16 10:01 Last Admin: 12/01/16 09:56 Dose: 125 mg Ferrous Sulfate (Feosol) 325 mg PO DAILY [facility] Last Admin: 12/01/16 09:55 Dose: 325 mg Furosemide (Lasix) 40 mg IVP DAILY [facility] Last Admin: 12/01/16 09:55 Dose: 40 mg Heparin Sodium (Porcine) (Heparin) 5,000 units SC Q12 [facility] Last Admin: 12/01/16 09:55 Dose: 5,000 units Hydralazine HCl (Apresoline) 50 mg PO BID [facility] Last Admin: 12/01/16 09:55 Dose: 50 mg Cefepime HCl (Maxipime Iv 1 Gm Premix) 1 gm in 50 mls @ 100 mls/hr IVPB Q24H [facility] Last Admin: 12/01/16 13:40 Dose: 100 mls/hr Vancomycin HCl 1 gm/ Sodium (Chloride) 250 mls @ 166.7 mls/hr IVPB TTS [facility] Stop: 12/11/16 11:30 Insulin Glargine (Lantus) 40 unit SC [facility] Last Admin: 11/30/16 21:47 Dose: 40 u Insulin Human Regular (Novolin R) 0 unit SC ACHS [facility] PRN Reason: Protocol Last Admin: 12/01/16 12:26 Dose: 8 unit Losartan Potassium (Cozaar) 100 mg PO DAILY [facility] Last Admin: 12/01/16 09:55 Dose: 100 mg Metolazone (Zaroxolyn) 5 mg PO DAILY [facility] Last Admin: 12/01/16 09:55 Dose: 5 mg Mupirocin (Bactroban Ointment) 0 gm TOP BID [facility] Last Admin: 12/01/16 10:37 Dose: 1 applic Oxycodone/Acetaminophen (Percocet 5/325 Mg Tab) 1 tab PO Q6H PRN PRN Reason: Pain, severe (8-10) Stop: 12/03/16 19:16 Last Admin: 12/01/16 14:47 Dose: 1 tab Rosuvastatin Calcium (Crestor) 10 mg PO HS [facility] Last Admin: 11/30/16 21:47 Dose: 10 mg Sevelamer Carbonate (Renvela) 0.8 gm PO TIDCC [facility] Last Admin: 12/01/16 12:25 Dose: 0.8 gm Vitamin B Complex/Vit C/Folic Acid (Nephro-Alonzo) 1 tab PO DAILY [facility] Last Admin: 12/01/16 09:55 Dose: 1 tab - Labs Labs: 12/01/16 07:14 12/01/16 07:14 PT 11.5 SECONDS (9.7-12.2) 11/28/16 14:27 INR 1.0 11/28/16 14:27 APTT 29 SECONDS (21-34) 11/28/16 14:27 - Constitutional Appears: Well, Non-toxic, No Acute Distress - Head Exam Head Exam: ATRAUMATIC, NORMAL INSPECTION, NORMOCEPHALIC - Eye Exam Eye Exam: EOMI, Normal appearance, PERRL - ENT Exam ENT Exam: Mucous Membranes Moist, Normal Exam - Neck Exam Neck Exam: Full ROM, Normal Inspection. absent: Lymphadenopathy - Respiratory Exam Respiratory Exam: Clear to Ausculation Bilateral, NORMAL BREATHING PATTERN - Cardiovascular Exam Cardiovascular Exam: REGULAR RHYTHM, RRR. absent: Murmur - GI/Abdominal Exam GI & Abdominal Exam: Soft, Tenderness, Normal Bowel Sounds. absent: Distended, Firm, Guarding Additional comments: mild tenderness - Extremities Exam Extremities Exam: Calf Tenderness, Pedal Edema, Tenderness Additional comments: left hand edema, left av fistual wound draining both legs erythematous and edematous - Back Exam Back Exam: NORMAL INSPECTION. absent: rash noted - Neurological Exam Neurological Exam: Alert, Awake, Oriented x3 - Skin Skin Exam: Warm. absent: Intact Additional comments: left arm av fistula wound b/l leg edema and erythema left heel ulcer dressed with gauze Assessment and Plan - Assessment and Plan (Free Text) Assessment: (1) Wound infection after surgery Assessment and Plan: Continue Vanco 1 gm and Maxipime 1 gm Temp 98.9 WBC dropping 12.1--11.9--11.4 on 12/01 12/01 f/u L upper extremity doppler left arm wound culture prelim- staph aureus ID consulted, Dr Meng, Niki and Zosyn recommended Surgury consulted, Dr Melendez, help appreciated vanc/zosyn given in ED blood culture negative Status: Acute (2) Left heel ulcer Assessment and Plan: 11/29 foot wound: Hyperkaratotic tissue debrided from periwound area with #15 blade without incident and wound cleansed with normal saline Advised patient's to discontinue applying Medihoney to site Wound dressed with 4x4 gauze and kirlix prevlon offloading boots to be worn in bed as per podiatry Santyl to be applied to ulcer site BID (2) CKD (chronic kidney disease) stage 3, GFR 30-59 ml/min Assessment and Plan: HD on 11/29 via permacath con't home med: sevelamer 0.8g TIDCC Status: Chronic (3) Lower Extremity Edema 11/29 LE dopplers: negative (4) Anemia, chronic disease Assessment and Plan: Hg 7.8 Patient has been typed and screened ferrous sulfate 325mg po daily ferrlecit 125 mg daily Status: Chronic (5) Hypertension Assessment and Plan: con't home med: hydralazine 50mg po bid losartan 100mg po daily Status: Chronic (6) Diabetes Assessment and Plan: accuchecks ISS Lantus 50 u sc daily (changed from 30 on 11/30) rosuvastatin 10mg po hs Status: Acute (7) Prophylactic measure Assessment and Plan: SCDs heparin 5000u sc q12 pepcid 20mg po bid renal diet Status: Acute <Benson Myrick Jr. - Last Filed: 12/02/16 10:49> Objective - Vital Signs/Intake and Output Vital Signs (last 24 hours): Temp Pulse Resp BP Pulse Ox 97.9 F 71 20 157/60 H 98 12/02/16 09:05 12/02/16 09:05 12/02/16 09:05 12/02/16 10:35 12/02/16 09:05 Intake and Output: 12/02/16 12/02/16 06:59 18:59 Intake Total 240 Balance 240 - Medications Medications: Current Medications Allopurinol (Zyloprim) 100 mg PO DAILY [facility] Last Admin: 12/02/16 10:12 Dose: Not Given Clotrimazole (Lotrimin 1%) 0 gm TOP BID [facility] Last Admin: 12/01/16 17:37 Dose: 1 applic Collagenase (Santyl) 30 gm TOP BID [facility] Last Admin: 12/01/16 17:37 Dose: 1 applic Docusate Sodium (Colace) 100 mg PO TID [facility] Last Admin: 12/02/16 10:10 Dose: Not Given Epoetin Maxwell (Procrit) 10,000 unit IV TTS [facility] Last Admin: 12/02/16 09:16 Dose: 10,000 unit Ergocalciferol (Drisdol 50,000 Intl Units Cap) 1 cap PO QWK [facility] Last Admin: 11/29/16 10:00 Dose: 1 cap Escitalopram Oxalate (Lexapro) 10 mg PO DAILY [facility] Last Admin: 12/02/16 10:12 Dose: Not Given Famotidine (Pepcid) 20 mg PO BID [facility] Last Admin: 12/02/16 10:12 Dose: Not Given Ferric Sodium Gluconate Complex (Ferrlecit) 125 mg IVPB DAILY [facility] Stop: 12/07/16 10:01 Last Admin: 12/02/16 09:17 Dose: 125 mg Ferrous Sulfate (Feosol) 325 mg PO DAILY [facility] Last Admin: 12/02/16 10:11 Dose: Not Given Furosemide (Lasix) 40 mg IVP DAILY [facility] Last Admin: 12/02/16 10:11 Dose: Not Given Heparin Sodium (Porcine) (Heparin) 5,000 units SC Q12 [facility] Last Admin: 12/02/16 10:11 Dose: Not Given Heparin Sodium (Porcine) (Heparin) 3,000 units IVP TTS [facility] Last Admin: 12/02/16 10:41 Dose: 3,000 units Heparin Sodium (Porcine) (Heparin) 3,700 units IVP TTS [facility] Last Admin: 12/02/16 10:42 Dose: 3,700 units Hydralazine HCl (Apresoline) 50 mg PO BID [facility] Last Admin: 12/02/16 10:10 Dose: Not Given Cefepime HCl (Maxipime Iv 1 Gm Premix) 1 gm in 50 mls @ 100 mls/hr IVPB Q24H [facility] Last Admin: 12/01/16 13:40 Dose: 100 mls/hr Vancomycin HCl 1 gm/ Sodium (Chloride) 250 mls @ 166.7 mls/hr IVPB TTS [facility] Stop: 12/11/16 11:30 Insulin Glargine (Lantus) 40 unit SC HS [facility] Last Admin: 12/01/16 21:36 Dose: 40 u Insulin Human Regular (Novolin R) 0 unit SC ACHS [facility] PRN Reason: Protocol Last Admin: 12/02/16 07:58 Dose: Not Given Losartan Potassium (Cozaar) 100 mg PO DAILY [facility] Last Admin: 12/02/16 10:11 Dose: Not Given Metolazone (Zaroxolyn) 5 mg PO DAILY [facility] Last Admin: 12/02/16 10:12 Dose: Not Given Mupirocin (Bactroban Ointment) 0 gm TOP BID [facility] Last Admin: 12/01/16 21:33 Dose: 1 applic Oxycodone/Acetaminophen (Percocet 5/325 Mg Tab) 1 tab PO Q6H PRN PRN Reason: Pain, severe (8-10) Stop: 12/03/16 19:16 Last Admin: 12/02/16 08:59 Dose: 1 tab Rosuvastatin Calcium (Crestor) 10 mg PO HS [facility] Last Admin: 12/01/16 21:35 Dose: 10 mg Sevelamer Carbonate (Renvela) 0.8 gm PO TIDCC [facility] Last Admin: 12/02/16 08:59 Dose: 0.8 gm Vitamin B Complex/Vit C/Folic Acid (Nephro-Alonzo) 1 tab PO DAILY [facility] Last Admin: 12/02/16 10:12 Dose: Not Given - Labs Labs: 12/02/16 07:05 12/02/16 07:05 PT 11.5 SECONDS (9.7-12.2) 11/28/16 14:27 INR 1.0 11/28/16 14:27 APTT 29 SECONDS (21-34) 11/28/16 14:27 Attending/Attestation - Attestation I have personally seen and examined this patient.: Yes I have fully participated in the care of the patient.: Yes I have reviewed all pertinent clinical information, including history, physical exam and plan: Yes Notes (Text): 12/02/16 10:49 Agree with resident note and findings
--- NOTE | 2016-12-01 19:49 | CP.PCM.PN ---
Subjective - Date & Time of Evaluation Date of Evaluation: 12/01/16 Time of Evaluation: 15:00 - Subjective Subjective: SEEN ON RENAL F/U ON HD T T S C/O BRANDON L E ESDEMA C/O CEULITIS OF L UPPER EXT .. THE AVF SITE Objective - Vital Signs/Intake and Output Vital Signs (last 24 hours): Temp Pulse Resp BP Pulse Ox 98.8 F 63 20 119/76 95 12/01/16 15:05 12/01/16 15:05 12/01/16 15:05 12/01/16 15:05 12/01/16 15:05 Intake and Output: 12/01/16 12/02/16 18:59 06:59 Intake Total 630 Balance 630 - Medications Medications: Current Medications Allopurinol (Zyloprim) 100 mg PO DAILY [facility] Last Admin: 12/01/16 09:55 Dose: 100 mg Clotrimazole (Lotrimin 1%) 0 gm TOP BID [facility] Last Admin: 12/01/16 17:37 Dose: 1 applic Collagenase (Santyl) 30 gm TOP BID [facility] Last Admin: 12/01/16 17:37 Dose: 1 applic Docusate Sodium (Colace) 100 mg PO BID [facility] Last Admin: 12/01/16 09:55 Dose: 100 mg Epoetin Maxwell (Procrit) 10,000 unit IV TTS [facility] Last Admin: 11/29/16 17:03 Dose: 10,000 unit Ergocalciferol (Drisdol 50,000 Intl Units Cap) 1 cap PO QWK [facility] Last Admin: 11/29/16 10:00 Dose: 1 cap Escitalopram Oxalate (Lexapro) 10 mg PO DAILY [facility] Last Admin: 12/01/16 09:55 Dose: 10 mg Famotidine (Pepcid) 20 mg PO BID [facility] Last Admin: 12/01/16 17:40 Dose: 20 mg Ferric Sodium Gluconate Complex (Ferrlecit) 125 mg IVPB DAILY [facility] Stop: 12/07/16 10:01 Last Admin: 12/01/16 09:56 Dose: 125 mg Ferrous Sulfate (Feosol) 325 mg PO DAILY [facility] Last Admin: 12/01/16 09:55 Dose: 325 mg Furosemide (Lasix) 40 mg IVP DAILY [facility] Last Admin: 12/01/16 09:55 Dose: 40 mg Heparin Sodium (Porcine) (Heparin) 5,000 units SC Q12 [facility] Last Admin: 12/01/16 09:55 Dose: 5,000 units Hydralazine HCl (Apresoline) 50 mg PO BID [facility] Last Admin: 12/01/16 17:40 Dose: 50 mg Cefepime HCl (Maxipime Iv 1 Gm Premix) 1 gm in 50 mls @ 100 mls/hr IVPB Q24H [facility] Last Admin: 12/01/16 13:40 Dose: 100 mls/hr Vancomycin HCl 1 gm/ Sodium (Chloride) 250 mls @ 166.7 mls/hr IVPB TTS [facility] Stop: 12/11/16 11:30 Insulin Glargine (Lantus) 40 unit SC HS [facility] Last Admin: 11/30/16 21:47 Dose: 40 u Insulin Human Regular (Novolin R) 0 unit SC ACHS [facility] PRN Reason: Protocol Last Admin: 12/01/16 17:39 Dose: 6 unit Losartan Potassium (Cozaar) 100 mg PO DAILY [facility] Last Admin: 12/01/16 09:55 Dose: 100 mg Metolazone (Zaroxolyn) 5 mg PO DAILY [facility] Last Admin: 12/01/16 09:55 Dose: 5 mg Mupirocin (Bactroban Ointment) 0 gm TOP BID [facility] Last Admin: 12/01/16 10:37 Dose: 1 applic Oxycodone/Acetaminophen (Percocet 5/325 Mg Tab) 1 tab PO Q6H PRN PRN Reason: Pain, severe (8-10) Stop: 12/03/16 19:16 Last Admin: 12/01/16 14:47 Dose: 1 tab Rosuvastatin Calcium (Crestor) 10 mg PO HS [facility] Last Admin: 11/30/16 21:47 Dose: 10 mg Sevelamer Carbonate (Renvela) 0.8 gm PO TIDCC [facility] Last Admin: 12/01/16 17:38 Dose: 0.8 gm Vitamin B Complex/Vit C/Folic Acid (Nephro-Alonzo) 1 tab PO DAILY [facility] Last Admin: 12/01/16 09:55 Dose: 1 tab - Labs Labs: 12/01/16 07:14 12/01/16 07:14 PT 11.5 SECONDS (9.7-12.2) 11/28/16 14:27 INR 1.0 11/28/16 14:27 APTT 29 SECONDS (21-34) 11/28/16 14:27 Assessment and Plan - Assessment and Plan (Free Text) Assessment: ESRD ON HD T T S .. TO BE C/O ANEMIA OF CKD .. ON EPO AND FERRLICIT MULTIPLE CO MORBIDITIES P : C/O CURRENT CARE C/O PRESENT MANAGEMENT
[2016-12-01] MEDS: (Lantus) Insulin Glargine, Recombinant SC SCH (21:36)
[2016-12-02] MEDS: Oxycodone/Acetaminophen 5/325 mg Tab PO PRN ×2 (00:05→08:59)
[2016-12-02 07:23] LABS: BASO # 0.1 K/uL (0.0-0.2); BASO % 0.9 % (0.0-2.0); EOS # 0.9 K/uL (0.0-0.7); EOS % 8.1 % (0.0-4.0); HEMOGLOBIN 7.3 g/dL (11.0-16.0); LYMPH # 1.7 K/uL (1.0-4.3); LYMPH % 15.8 % (20.0-40.0); MEAN CELL VOLUME 97.2 fL (81.0-99.0); MEAN CORPUSCULAR HEMOGLOBIN 30.1 pg (27.0-31.0); MONO % 9.1 % (0.0-10.0); NEUT # 7.3 K/uL (1.8-7.0); NEUT % 66.1 % (50.0-75.0); NRBC % 0.5 % (0.0-2.0); RBC 2.42 Mil/uL (3.80-5.20)
[2016-12-02 07:24] LABS: ALBUMIN 3.1 g/dL (3.5-5.0)
[2016-12-02 07:27] LABS: ALB/GLOB RATIO 1.1 (1.0-2.1)
[2016-12-02 07:28] LABS: CALCIUM 8.8 mg/dl (8.6-10.4); MAGNESIUM 2.4 mg/dL (1.6-2.3)
--- NOTE | 2016-12-02 07:36 | CP.PCM.PN ---
<Wanda Marquez - Last Filed: 12/02/16 16:45> Subjective - Date & Time of Evaluation Date of Evaluation: 12/02/16 Time of Evaluation: 07:00 - Subjective Subjective: PGY1- Medicine Note- Dr. Myrick's Service Patient was seen today at bedside in no acute distress. Reports pain is less than yesterday. Reports two episodes of BM yesterday of normal texture and color but minimal amount. New onset of itchiness of upper chest focused around dressing tape of dialysis catheter. Denies chest pain, palpitations, SOB, n/v, cough, dizziness. Objective - Vital Signs/Intake and Output Vital Signs (last 24 hours): Temp Pulse Resp BP Pulse Ox 98.3 F 72 20 114/57 L 94 L 12/02/16 00:00 12/02/16 00:00 12/02/16 00:00 12/02/16 00:00 12/02/16 00:00 Intake and Output: 12/02/16 12/02/16 06:59 18:59 Intake Total 240 Balance 240 - Medications Medications: Current Medications Allopurinol (Zyloprim) 100 mg PO DAILY [facility] Last Admin: 12/01/16 09:55 Dose: 100 mg Clotrimazole (Lotrimin 1%) 0 gm TOP BID [facility] Last Admin: 12/01/16 17:37 Dose: 1 applic Collagenase (Santyl) 30 gm TOP BID [facility] Last Admin: 12/01/16 17:37 Dose: 1 applic Docusate Sodium (Colace) 100 mg PO BID [facility] Last Admin: 12/01/16 21:34 Dose: 100 mg Epoetin Maxwell (Procrit) 10,000 unit IV TTS [facility] Last Admin: 11/29/16 17:03 Dose: 10,000 unit Ergocalciferol (Drisdol 50,000 Intl Units Cap) 1 cap PO QWK [facility] Last Admin: 11/29/16 10:00 Dose: 1 cap Escitalopram Oxalate (Lexapro) 10 mg PO DAILY [facility] Last Admin: 12/01/16 09:55 Dose: 10 mg Famotidine (Pepcid) 20 mg PO BID [facility] Last Admin: 12/01/16 17:40 Dose: 20 mg Ferric Sodium Gluconate Complex (Ferrlecit) 125 mg IVPB DAILY [facility] Stop: 12/07/16 10:01 Last Admin: 12/01/16 09:56 Dose: 125 mg Ferrous Sulfate (Feosol) 325 mg PO DAILY [facility] Last Admin: 12/01/16 09:55 Dose: 325 mg Furosemide (Lasix) 40 mg IVP DAILY [facility] Last Admin: 12/01/16 09:55 Dose: 40 mg Heparin Sodium (Porcine) (Heparin) 5,000 units SC Q12 [facility] Last Admin: 12/01/16 21:35 Dose: 5,000 units Hydralazine HCl (Apresoline) 50 mg PO BID [facility] Last Admin: 12/01/16 17:40 Dose: 50 mg Cefepime HCl (Maxipime Iv 1 Gm Premix) 1 gm in 50 mls @ 100 mls/hr IVPB Q24H [facility] Last Admin: 12/01/16 13:40 Dose: 100 mls/hr Vancomycin HCl 1 gm/ Sodium (Chloride) 250 mls @ 166.7 mls/hr IVPB TTS [facility] Stop: 12/11/16 11:30 Insulin Glargine (Lantus) 40 unit SC [facility] Last Admin: 12/01/16 21:36 Dose: 40 u Insulin Human Regular (Novolin R) 0 unit SC ACHS [facility] PRN Reason: Protocol Last Admin: 12/01/16 21:36 Dose: Not Given Losartan Potassium (Cozaar) 100 mg PO DAILY [facility] Last Admin: 12/01/16 09:55 Dose: 100 mg Metolazone (Zaroxolyn) 5 mg PO DAILY [facility] Last Admin: 12/01/16 09:55 Dose: 5 mg Mupirocin (Bactroban Ointment) 0 gm TOP BID [facility] Last Admin: 12/01/16 21:33 Dose: 1 applic Oxycodone/Acetaminophen (Percocet 5/325 Mg Tab) 1 tab PO Q6H PRN PRN Reason: Pain, severe (8-10) Stop: 12/03/16 19:16 Last Admin: 12/02/16 00:05 Dose: 1 tab Rosuvastatin Calcium (Crestor) 10 mg PO HS [facility] Last Admin: 12/01/16 21:35 Dose: 10 mg Sevelamer Carbonate (Renvela) 0.8 gm PO TIDCC [facility] Last Admin: 12/01/16 17:38 Dose: 0.8 gm Vitamin B Complex/Vit C/Folic Acid (Nephro-Alonzo) 1 tab PO DAILY [facility] Last Admin: 12/01/16 09:55 Dose: 1 tab - Labs Labs: 12/01/16 07:14 12/01/16 07:14 PT 11.5 SECONDS (9.7-12.2) 11/28/16 14:27 INR 1.0 11/28/16 14:27 APTT 29 SECONDS (21-34) 11/28/16 14:27 - Constitutional Appears: Well, Non-toxic, No Acute Distress - Head Exam Head Exam: ATRAUMATIC, NORMAL INSPECTION, NORMOCEPHALIC - Eye Exam Eye Exam: EOMI, Normal appearance, PERRL - ENT Exam ENT Exam: Mucous Membranes Moist, Normal Exam - Neck Exam Neck Exam: Full ROM, Normal Inspection. absent: Lymphadenopathy - Respiratory Exam Respiratory Exam: Clear to Ausculation Bilateral, NORMAL BREATHING PATTERN. absent: Rhonchi, Wheezes, Respiratory Distress, Stridor - Cardiovascular Exam Cardiovascular Exam: REGULAR RHYTHM, RRR, +S1, +S2. absent: Gallop, Murmur - GI/Abdominal Exam GI & Abdominal Exam: Soft, Normal Bowel Sounds. absent: Distended, Firm, Guarding, Rigid - Extremities Exam Extremities Exam: Full ROM, Pedal Edema. absent: Normal Inspection Additional comments: left hand edema lower extremity edema - Back Exam Back Exam: NORMAL INSPECTION. absent: rash noted - Neurological Exam Neurological Exam: Alert, Awake, Oriented x3 - Psychiatric Exam Psychiatric exam: Normal Affect - Skin Skin Exam: Warm Additional comments: left arm post av fistula, erythematous, pus, covered with dressing and left hand edema both lower legs and feet edematous. lower legs have erythema left foot ulcer dressing clean and intact Assessment and Plan - Assessment and Plan (Free Text) Assessment: (1) Wound infection after surgery Assessment and Plan: Continue Vanco 1 gm and Maxipime 1 gm Temp 98.9 WBC dropping 12.1--11.9--11.4 on 12/01 12/02 f/u L upper extremity doppler left arm wound culture prelim- staph aureus ID consulted, Dr Meng, Vanco and Zosyn recommended Surgury consulted, Dr Melendez, help appreciated vanc/zosyn given in ED blood culture negative Status: Acute (2) Left heel ulcer Assessment and Plan: 12/02 podiatry cleaned wound and dressed with Santyl, 4X4 gauze and kerlix and recommonds cont. wearing offloading boots while in bed 11/29 foot wound: Hyperkaratotic tissue debrided from periwound area with #15 blade without incident and wound cleansed with normal saline (2) CKD (chronic kidney disease) stage 3, GFR 30-59 ml/min Assessment and Plan: HD on 11/29 via permacath con't home med: sevelamer 0.8g TIDCC Status: Chronic (3) Lower Extremity Edema 11/29 LE dopplers: negative r/o obstruction-- 12/02: abdominal u/s: diffuse fatty infiltration of the liver. minimal hepatomegaly. bilateral renal hyperechogenicity-medical renal disease inferred, 5mm midpole nonobstructing right renal calculus-unchanged 12/02: pelvic u/s: markedly limited exam- no distended bladder to provide for sonographic window to visualize pelvic anatomy (4) Anemia, chronic disease Assessment and Plan: Hg 7.3 on 12/02, if continues to be low may need transfusion with next dialysis treatment Patient has been typed and screened ferrous sulfate 325mg po daily ferrlecit 125 mg daily Status: Chronic (5) Hypertension Assessment and Plan: con't home med: hydralazine 50mg po bid losartan 100mg po daily Status: Chronic (6) Diabetes Assessment and Plan: accuchecks ISS Lantus 50 u sc daily (changed from 30 on 11/30) rosuvastatin 10mg po hs Status: Acute (7) Constipation Assessment and Plan: patient has had very small bm colace 100 mg po TID (7) Prophylactic measure Assessment and Plan: SCDs heparin 5000u sc q12 pepcid 20mg po bid renal diet Status: Acute <Benson Myrick Jr. - Last Filed: 12/06/16 10:23> Objective - Vital Signs/Intake and Output Vital Signs (last 24 hours): Temp Pulse Resp BP Pulse Ox 98.3 F 67 16 159/60 H 160 H 12/06/16 09:05 12/06/16 09:05 12/06/16 09:05 12/06/16 10:05 12/06/16 09:05 Intake and Output: 12/06/16 12/06/16 06:59 18:59 Intake Total 340 Balance 340 - Medications Medications: Current Medications Allopurinol (Zyloprim) 100 mg PO DAILY [facility] Last Admin: 12/06/16 09:34 Dose: Not Given Clotrimazole (Lotrimin 1%) 0 gm TOP BID [facility] Last Admin: 12/05/16 21:15 Dose: 1 applic Collagenase (Santyl) 30 gm TOP BID [facility] Last Admin: 12/06/16 09:34 Dose: Not Given Docusate Sodium (Colace) 100 mg PO TID [facility] Last Admin: 12/06/16 09:33 Dose: Not Given Epoetin Maxwell (Procrit) 10,000 unit IV TTS [facility] Last Admin: 12/06/16 09:25 Dose: 10,000 unit Ergocalciferol (Drisdol 50,000 Intl Units Cap) 1 cap PO QWK [facility] Last Admin: 11/29/16 10:00 Dose: 1 cap Escitalopram Oxalate (Lexapro) 10 mg PO DAILY [facility] Last Admin: 12/06/16 09:33 Dose: Not Given Famotidine (Pepcid) 20 mg PO DAILY [facility] Last Admin: 12/06/16 09:34 Dose: Not Given Ferric Sodium Gluconate Complex (Ferrlecit) 125 mg IVPB DAILY [facility] Stop: 12/07/16 10:01 Last Admin: 12/05/16 14:33 Dose: 125 mg Ferrous Sulfate (Feosol) 325 mg PO DAILY [facility] Last Admin: 12/06/16 09:33 Dose: Not Given Furosemide (Lasix) 40 mg IVP DAILY [facility] Last Admin: 12/06/16 09:33 Dose: Not Given Heparin Sodium (Porcine) (Heparin) 5,000 units SC Q12 [facility] Last Admin: 12/06/16 09:33 Dose: Not Given Heparin Sodium (Porcine) (Heparin) 3,000 units IVP TTS [facility] Last Admin: 12/06/16 09:25 Dose: 3,000 units Heparin Sodium (Porcine) (Heparin) 3,700 units IVP TTS [facility] Last Admin: 12/04/16 11:56 Dose: 3,700 units Hydralazine HCl (Apresoline) 50 mg PO BID [facility] Last Admin: 12/06/16 09:32 Dose: Not Given Ciprofloxacin (Cipro 200mg/100ml D5w) 100 mls @ 100 mls/hr IVPB Q12H [facility] Last Admin: 12/06/16 06:06 Dose: 100 mls/hr Insulin Glargine (Lantus) 55 unit SC HS [facility] Last Admin: 12/05/16 21:16 Dose: 55 u Insulin Human Regular (Novolin R) 0 unit SC ACHS [facility] PRN Reason: Protocol Last Admin: 12/06/16 07:44 Dose: Not Given Losartan Potassium (Cozaar) 100 mg PO DAILY [facility] Last Admin: 12/06/16 09:33 Dose: Not Given Metolazone (Zaroxolyn) 5 mg PO DAILY [facility] Last Admin: 12/06/16 09:34 Dose: Not Given Morphine Sulfate (Morphine) 1 mg IVP Q15M PRN PRN Reason: Pain, moderate (4-7) Last Admin: 12/06/16 09:28 Dose: 1 mg Mupirocin (Bactroban Ointment) 0 gm TOP BID [facility] Last Admin: 12/06/16 09:32 Dose: Not Given Polyethylene Glycol (Miralax) 17 gm PO DAILY [facility] Last Admin: 12/06/16 09:34 Dose: Not Given Rosuvastatin Calcium (Crestor) 10 mg PO HS [facility] Last Admin: 12/05/16 21:22 Dose: 10 mg Sevelamer Carbonate (Renvela) 0.8 gm PO TIDCC [facility] Last Admin: 12/06/16 07:56 Dose: 0.8 gm Vitamin B Complex/Vit C/Folic Acid (Nephro-Alonzo) 1 tab PO DAILY [facility] Last Admin: 12/06/16 09:34 Dose: Not Given - Labs Labs: 12/06/16 07:11 12/06/16 07:11 PT 11.9 SECONDS (9.7-12.2) 12/03/16 10:00 INR 1.1 12/03/16 10:00 APTT 34 SECONDS (21-34) 12/03/16 10:00 Attending/Attestation - Attestation I have personally seen and examined this patient.: Yes I have fully participated in the care of the patient.: Yes I have reviewed all pertinent clinical information, including history, physical exam and plan: Yes Notes (Text): 12/06/16 10:23 Agree with the resident note and findings
[2016-12-02] MEDS: (Novolin R) Insulin Human Regular 100 units/ml vial SC SCH ×4 (07:58→21:20)
[2016-12-02] MEDS: Sevelamer Carb 0.8 gm/Packet PO SCH ×3 (08:59→17:23)
[2016-12-02] MEDS: Epoetin Alfa 10,000 unit/ml Dialysis IV SCH (09:16)
[2016-12-02] MEDS: Ferric Sodium Gluconat Complex 62.5 mg/5 ml Vial IVPB SCH (09:17)
[2016-12-02] MEDS: Clotrimazole 1% Cream(30 gm) TOP SCH ×2 (10:10→17:27)
[2016-12-02] MEDS: Collagenase 250 Units/gm Ointment(30 gm) TOP SCH ×2 (10:10→17:27)
[2016-12-02] MEDS: metOLazone 5 MG TAB PO SCH (10:12)
[2016-12-02] MEDS: Multivitamin Vitamin B Complex (Nephro-Vite) Tab PO SCH (10:12)
--- NOTE | 2016-12-02 11:36 | CP.PCM.PN ---
Subjective - Date & Time of Evaluation Date of Evaluation: 12/02/16 Time of Evaluation: 11:36 - Subjective Subjective: AFEBRILE fEELS WEAK lOOKS PALE -H/H /7.3 /23.5. C/O PAIN LEFT ARM AVF SITE. CELLULITUS/DRAINAGE AVF SITE . DRESSING IN PLACE. WOUND CULTURE- SERRATIA MARCESCENS/ MSSA Objective - Vital Signs/Intake and Output Vital Signs (last 24 hours): Temp Pulse Resp BP Pulse Ox 97.9 F 71 20 158/74 H 98 12/02/16 09:05 12/02/16 09:05 12/02/16 09:05 12/02/16 11:05 12/02/16 09:05 Intake and Output: 12/02/16 12/02/16 06:59 18:59 Intake Total 240 Balance 240 - Medications Medications: Current Medications Allopurinol (Zyloprim) 100 mg PO DAILY [facility] Last Admin: 12/02/16 10:12 Dose: Not Given Clotrimazole (Lotrimin 1%) 0 gm TOP BID [facility] Last Admin: 12/01/16 17:37 Dose: 1 applic Collagenase (Santyl) 30 gm TOP BID [facility] Last Admin: 12/01/16 17:37 Dose: 1 applic Docusate Sodium (Colace) 100 mg PO TID [facility] Last Admin: 12/02/16 10:10 Dose: Not Given Epoetin Maxwell (Procrit) 10,000 unit IV TTS [facility] Last Admin: 12/02/16 09:16 Dose: 10,000 unit Ergocalciferol (Drisdol 50,000 Intl Units Cap) 1 cap PO QWK [facility] Last Admin: 11/29/16 10:00 Dose: 1 cap Escitalopram Oxalate (Lexapro) 10 mg PO DAILY [facility] Last Admin: 12/02/16 10:12 Dose: Not Given Famotidine (Pepcid) 20 mg PO BID [facility] Last Admin: 12/02/16 10:12 Dose: Not Given Ferric Sodium Gluconate Complex (Ferrlecit) 125 mg IVPB DAILY [facility] Stop: 12/07/16 10:01 Last Admin: 12/02/16 09:17 Dose: 125 mg Ferrous Sulfate (Feosol) 325 mg PO DAILY [facility] Last Admin: 12/02/16 10:11 Dose: Not Given Furosemide (Lasix) 40 mg IVP DAILY [facility] Last Admin: 12/02/16 10:11 Dose: Not Given Heparin Sodium (Porcine) (Heparin) 5,000 units SC Q12 [facility] Last Admin: 12/02/16 10:11 Dose: Not Given Heparin Sodium (Porcine) (Heparin) 3,000 units IVP TTS [facility] Last Admin: 12/02/16 10:41 Dose: 3,000 units Heparin Sodium (Porcine) (Heparin) 3,700 units IVP TTS [facility] Last Admin: 12/02/16 10:42 Dose: 3,700 units Hydralazine HCl (Apresoline) 50 mg PO BID [facility] Last Admin: 12/02/16 10:10 Dose: Not Given Cefepime HCl (Maxipime Iv 1 Gm Premix) 1 gm in 50 mls @ 100 mls/hr IVPB Q24H [facility] Last Admin: 12/01/16 13:40 Dose: 100 mls/hr Vancomycin HCl 1 gm/ Sodium (Chloride) 250 mls @ 166.7 mls/hr IVPB TTS [facility] Stop: 12/11/16 11:30 Insulin Glargine (Lantus) 40 unit SC [facility] Last Admin: 12/01/16 21:36 Dose: 40 u Insulin Human Regular (Novolin R) 0 unit SC ACHS [facility] PRN Reason: Protocol Last Admin: 12/02/16 07:58 Dose: Not Given Losartan Potassium (Cozaar) 100 mg PO DAILY [facility] Last Admin: 12/02/16 10:11 Dose: Not Given Metolazone (Zaroxolyn) 5 mg PO DAILY [facility] Last Admin: 12/02/16 10:12 Dose: Not Given Mupirocin (Bactroban Ointment) 0 gm TOP BID [facility] Last Admin: 12/01/16 21:33 Dose: 1 applic Oxycodone/Acetaminophen (Percocet 5/325 Mg Tab) 1 tab PO Q6H PRN PRN Reason: Pain, severe (8-10) Stop: 12/03/16 19:16 Last Admin: 12/02/16 08:59 Dose: 1 tab Rosuvastatin Calcium (Crestor) 10 mg PO HS [facility] Last Admin: 12/01/16 21:35 Dose: 10 mg Sevelamer Carbonate (Renvela) 0.8 gm PO TIDCC [facility] Last Admin: 12/02/16 08:59 Dose: 0.8 gm Vitamin B Complex/Vit C/Folic Acid (Nephro-Alonzo) 1 tab PO DAILY [facility] Last Admin: 12/02/16 10:12 Dose: Not Given - Labs Labs: 12/02/16 07:05 12/02/16 07:05 PT 11.5 SECONDS (9.7-12.2) 11/28/16 14:27 INR 1.0 11/28/16 14:27 APTT 29 SECONDS (21-34) 11/28/16 14:27 - Constitutional Appears: No Acute Distress - Head Exam Head Exam: NORMAL INSPECTION - Eye Exam Eye Exam: EOMI, PERRL - ENT Exam ENT Exam: Normal Oropharynx - Neck Exam Neck Exam: Normal Inspection - Respiratory Exam Respiratory Exam: Clear to Ausculation Bilateral - Cardiovascular Exam Cardiovascular Exam: REGULAR RHYTHM, +S1 - GI/Abdominal Exam GI & Abdominal Exam: Soft, Normal Bowel Sounds - Extremities Exam Extremities Exam: Pedal Edema (BILATERAL LOWER EXTREMITY CELLULITIS RT>L). absent: Calf Tenderness - Back Exam Additional comments: LT AVF SITE DRESSING IN PLACE Left hand edema, left av fistual wound draining - Neurological Exam Neurological Exam: Alert, Awake, CN II-XII Intact, Reflexes Normal - Psychiatric Exam Psychiatric exam: Depressed - Skin Skin Exam: Pallor Assessment and Plan (1) Wound infection after surgery Assessment & Plan: WOUND CULTURES +VE SERRATIA MARCESCENS/ MSSA -S- CEFEPIME/AND vANCO. CONTINUE ON iv CEFEPIME 1 G EVERY 24 HOURLY. 11/29/16 CONTINUE iv VANCOMYCIN 1 G POST EACH HEMODIALYSIS TTS X 5 DOSES FOR STAPH/ STREPT COVERAGE PATIENT FOR DEBRIDEMENT AND FLUSHING OF THE WOUND PER SURGER IN AM. Status: Acute (2) Cellulitis Status: Acute (3) Foot ulcer Assessment & Plan: PATIENT ALSO HAS A LEFT LATERAL PLANTAR ULCER X 2 MONTHS ULCER 1CM ,DRY ,-VE DRAINAGE. LWC PER PODIATRY. Status: Acute (4) Peripheral vascular disease Status: Acute (5) Anemia, chronic disease Status: Chronic (6) CKD (chronic kidney disease) stage 3, GFR 30-59 ml/min Status: Chronic (7) DM2 (diabetes mellitus, type 2) Status: Chronic
--- NOTE | 2016-12-02 11:51 | CP.PCM.PN ---
Subjective - Date & Time of Evaluation Date of Evaluation: 12/02/16 Time of Evaluation: 11:49 - Subjective Subjective: 71 y/o female seen at bedside in dialysis for left foot lateral and plantar ulcer. Pt is AAOx3 and is in NAD. Pt denies of any acute overnight events. Pt denies of any pain to the site. Patient denies any recent F/N/V/C/SOB. Patient denies any further pedal complaints at this time. Objective - Vital Signs/Intake and Output Vital Signs (last 24 hours): Temp Pulse Resp BP Pulse Ox 97.9 F 71 20 161/71 H 98 12/02/16 09:05 12/02/16 09:05 12/02/16 09:05 12/02/16 11:35 12/02/16 09:05 Intake and Output: 12/02/16 12/02/16 06:59 18:59 Intake Total 240 Balance 240 - Medications Medications: Current Medications Allopurinol (Zyloprim) 100 mg PO DAILY [facility] Last Admin: 12/02/16 10:12 Dose: Not Given Clotrimazole (Lotrimin 1%) 0 gm TOP BID [facility] Last Admin: 12/01/16 17:37 Dose: 1 applic Collagenase (Santyl) 30 gm TOP BID [facility] Last Admin: 12/01/16 17:37 Dose: 1 applic Docusate Sodium (Colace) 100 mg PO TID [facility] Last Admin: 12/02/16 10:10 Dose: Not Given Epoetin Maxwell (Procrit) 10,000 unit IV TTS [facility] Last Admin: 12/02/16 09:16 Dose: 10,000 unit Ergocalciferol (Drisdol 50,000 Intl Units Cap) 1 cap PO QWK [facility] Last Admin: 11/29/16 10:00 Dose: 1 cap Escitalopram Oxalate (Lexapro) 10 mg PO DAILY [facility] Last Admin: 12/02/16 10:12 Dose: Not Given Famotidine (Pepcid) 20 mg PO BID [facility] Last Admin: 12/02/16 10:12 Dose: Not Given Ferric Sodium Gluconate Complex (Ferrlecit) 125 mg IVPB DAILY [facility] Stop: 12/07/16 10:01 Last Admin: 12/02/16 09:17 Dose: 125 mg Ferrous Sulfate (Feosol) 325 mg PO DAILY [facility] Last Admin: 12/02/16 10:11 Dose: Not Given Furosemide (Lasix) 40 mg IVP DAILY [facility] Last Admin: 12/02/16 10:11 Dose: Not Given Heparin Sodium (Porcine) (Heparin) 5,000 units SC Q12 [facility] Last Admin: 12/02/16 10:11 Dose: Not Given Heparin Sodium (Porcine) (Heparin) 3,000 units IVP TTS [facility] Last Admin: 12/02/16 10:41 Dose: 3,000 units Heparin Sodium (Porcine) (Heparin) 3,700 units IVP TTS [facility] Last Admin: 12/02/16 10:42 Dose: 3,700 units Hydralazine HCl (Apresoline) 50 mg PO BID [facility] Last Admin: 12/02/16 10:10 Dose: Not Given Cefepime HCl (Maxipime Iv 1 Gm Premix) 1 gm in 50 mls @ 100 mls/hr IVPB Q24H [facility] Last Admin: 12/01/16 13:40 Dose: 100 mls/hr Vancomycin HCl 1 gm/ Sodium (Chloride) 250 mls @ 166.7 mls/hr IVPB TTS [facility] Stop: 12/11/16 11:30 Insulin Glargine (Lantus) 40 unit SC [facility] Last Admin: 12/01/16 21:36 Dose: 40 u Insulin Human Regular (Novolin R) 0 unit SC ACHS [facility] PRN Reason: Protocol Last Admin: 12/02/16 07:58 Dose: Not Given Losartan Potassium (Cozaar) 100 mg PO DAILY [facility] Last Admin: 12/02/16 10:11 Dose: Not Given Metolazone (Zaroxolyn) 5 mg PO DAILY [facility] Last Admin: 12/02/16 10:12 Dose: Not Given Mupirocin (Bactroban Ointment) 0 gm TOP BID [facility] Last Admin: 12/01/16 21:33 Dose: 1 applic Oxycodone/Acetaminophen (Percocet 5/325 Mg Tab) 1 tab PO Q6H PRN PRN Reason: Pain, severe (8-10) Stop: 12/03/16 19:16 Last Admin: 12/02/16 08:59 Dose: 1 tab Rosuvastatin Calcium (Crestor) 10 mg PO HS [facility] Last Admin: 12/01/16 21:35 Dose: 10 mg Sevelamer Carbonate (Renvela) 0.8 gm PO TIDCC [facility] Last Admin: 12/02/16 08:59 Dose: 0.8 gm Vitamin B Complex/Vit C/Folic Acid (Nephro-Alonzo) 1 tab PO DAILY [facility] Last Admin: 12/02/16 10:12 Dose: Not Given - Labs Labs: 12/02/16 07:05 12/02/16 07:05 PT 11.5 SECONDS (9.7-12.2) 11/28/16 14:27 INR 1.0 11/28/16 14:27 APTT 29 SECONDS (21-34) 11/28/16 14:27 - Constitutional Appears: Well, Non-toxic, No Acute Distress - Extremities Exam Additional comments: VASC: DP/PT pulses palpable 1/4 b/l. CFT < 3 seconds to all digits, temperature gradient is warm to cool. Moderate pitting edema noted to b/l lower extremities DERM: Velazco stage 1 ulceration seen at lateral and plantar heel on left foot. No purulent drainage, malodor, undermining, tracking, periwound erythema or other clinical signs of infection noted to the area. Hyperkeratotic periwound area noted with mild maceration seen at plantar aspect of wound. Erythematous skin changes noted to anterior shins b/l (possible hemosiderin deposition). No other open lesions noted at this time. NEURO: Epicritic and protective sensation grossly intact b/l ORTHO: Mild pain on palpation noted to ulcer site of left foot - Neurological Exam Neurological Exam: Alert, Awake, Oriented x3 - Psychiatric Exam Psychiatric exam: Normal Affect, Normal Mood Assessment and Plan - Assessment and Plan (Free Text) Assessment: 71 year old female seen at bedside with left foot ulcer secondary to DM, ESRD, CHF and CKD Plan: Pt evaluated and chart reviewd Pt discussed in details with attending Dr. Molina Labs and vitals reviewed (afebrile) CUCO/PVR 10/22/16: left: .35, right .98 left foot heel ulcer dressed with Santyl, 4x4 gauze and kerlix cont. wearing offloading boots while in bed Continue with abx per ID Podiatry will continue to follow while in house
[2016-12-02] MEDS: Cefepime IV 1 gm in Dextrose 1 GM/50 ML BAG IVPB SCH (14:07)
--- NOTE | 2016-12-02 14:07 | US ---
HISTORY: r/o mass/ obstruction COMPARISON: None available. TECHNIQUE: Transabdominal. No significant appearing bladder distension to provide for bladder window in this patient on dialysis FINDINGS: UTERUS: Nonvisualized ENDOMETRIUM: Nonvisualized CERVIX: Nonvisualized RIGHT OVARY: Nonvisualized LEFT OVARY: Nonvisualized FREE FLUID: Limited evaluation for this-no gross prominent free fluid seen OTHER FINDINGS: None. IMPRESSION: Markedly limited exam -no distended bladder to provide for sonographic window to visualize pelvic anatomy .
--- NOTE | 2016-12-02 14:13 | US ---
HISTORY: r/o mass/ obstruction COMPARISON: 10/24/2016 TECHNIQUE: Sonographic evaluation of the abdomen. FINDINGS: LIVER: Measures 17.3 cm. Increased echogenicity of the liver parenchyma. No mass. No intrahepatic bile duct dilatation. GALLBLADDER: Unremarkable. No gallstones. COMMON BILE DUCT: Measures 4 mm. No stones. No dilatation. PANCREAS: Limited exam obscured by bowel gas RIGHT KIDNEY: Measures 11.0 x 4.8 x 4.9cm. Increased echogenicity. 5 mm midpole nonobstructing right renal calculus -similar-appearing. No, mass, or hydronephrosis. LEFT KIDNEY: Measures 11.8 x 4. 8 x 4.7cm. Increased echogenicity. No calculus, mass, or hydronephrosis. SPLEEN: Normal in size and contour. No mass. AORTA: No aneurysmal dilatation. IVC: Unremarkable. OTHER FINDINGS: None. IMPRESSION: Diffuse fatty infiltration of the liver. Minimal hepatomegaly. Bilateral renal hyperechogenicy- medical renal disease inferred 5 mm midpole nonobstructing right renal calculus - unchanged
--- NOTE | 2016-12-02 20:55 | CP.PCM.PN ---
Subjective - Date & Time of Evaluation Date of Evaluation: 12/02/16 Time of Evaluation: 14:00 - Subjective Subjective: SEEN ON RENAL F/U RECIEVED HD EARLIAR TIDAY .. UF 4 L FEELS THE SAME ALL ABOVE EMR REVIEWED Objective - Vital Signs/Intake and Output Vital Signs (last 24 hours): Temp Pulse Resp BP Pulse Ox 99 F 64 20 111/60 95 12/02/16 15:00 12/02/16 15:00 12/02/16 15:00 12/02/16 15:00 12/02/16 15:00 Intake and Output: 12/02/16 12/03/16 18:59 06:59 Intake Total 750 Balance 750 - Medications Medications: Current Medications Allopurinol (Zyloprim) 100 mg PO DAILY [facility] Last Admin: 12/02/16 10:12 Dose: Not Given Clotrimazole (Lotrimin 1%) 0 gm TOP BID [facility] Last Admin: 12/02/16 17:27 Dose: 1 applic Collagenase (Santyl) 30 gm TOP BID [facility] Last Admin: 12/02/16 17:27 Dose: 1 applic Docusate Sodium (Colace) 100 mg PO TID [facility] Last Admin: 12/02/16 17:24 Dose: 100 mg Epoetin Maxwell (Procrit) 10,000 unit IV TTS [facility] Last Admin: 12/02/16 09:16 Dose: 10,000 unit Ergocalciferol (Drisdol 50,000 Intl Units Cap) 1 cap PO QWK [facility] Last Admin: 11/29/16 10:00 Dose: 1 cap Escitalopram Oxalate (Lexapro) 10 mg PO DAILY [facility] Last Admin: 12/02/16 10:12 Dose: Not Given Famotidine (Pepcid) 20 mg PO BID [facility] Last Admin: 12/02/16 17:24 Dose: 20 mg Ferric Sodium Gluconate Complex (Ferrlecit) 125 mg IVPB DAILY [facility] Stop: 12/07/16 10:01 Last Admin: 12/02/16 09:17 Dose: 125 mg Ferrous Sulfate (Feosol) 325 mg PO DAILY [facility] Last Admin: 12/02/16 10:11 Dose: Not Given Furosemide (Lasix) 40 mg IVP DAILY [facility] Last Admin: 12/02/16 10:11 Dose: Not Given Heparin Sodium (Porcine) (Heparin) 5,000 units SC Q12 [facility] Last Admin: 12/02/16 10:11 Dose: Not Given Heparin Sodium (Porcine) (Heparin) 3,000 units IVP TTS [facility] Last Admin: 12/02/16 10:41 Dose: 3,000 units Heparin Sodium (Porcine) (Heparin) 3,700 units IVP TTS [facility] Last Admin: 12/02/16 10:42 Dose: 3,700 units Hydralazine HCl (Apresoline) 50 mg PO BID [facility] Last Admin: 12/02/16 17:24 Dose: 50 mg Cefepime HCl (Maxipime Iv 1 Gm Premix) 1 gm in 50 mls @ 100 mls/hr IVPB Q24H [facility] Last Admin: 12/02/16 14:07 Dose: 100 mls/hr Vancomycin HCl 1 gm/ Sodium (Chloride) 250 mls @ 166.7 mls/hr IVPB TTS [facility] Stop: 12/11/16 11:30 Last Admin: 12/02/16 12:52 Dose: 166.7 mls/hr Insulin Glargine (Lantus) 40 unit SC [facility] Last Admin: 12/01/16 21:36 Dose: 40 u Insulin Human Regular (Novolin R) 0 unit SC ACHS [facility] PRN Reason: Protocol Last Admin: 12/02/16 17:24 Dose: 6 unit Losartan Potassium (Cozaar) 100 mg PO DAILY [facility] Last Admin: 12/02/16 10:11 Dose: Not Given Metolazone (Zaroxolyn) 5 mg PO DAILY [facility] Last Admin: 12/02/16 10:12 Dose: Not Given Mupirocin (Bactroban Ointment) 0 gm TOP BID [facility] Last Admin: 12/02/16 17:26 Dose: 1 applic Oxycodone/Acetaminophen (Percocet 5/325 Mg Tab) 1 tab PO Q6H PRN PRN Reason: Pain, severe (8-10) Stop: 12/03/16 19:16 Last Admin: 12/02/16 08:59 Dose: 1 tab Rosuvastatin Calcium (Crestor) 10 mg PO HS [facility] Last Admin: 12/01/16 21:35 Dose: 10 mg Sevelamer Carbonate (Renvela) 0.8 gm PO TIDCC [facility] Last Admin: 12/02/16 17:23 Dose: 0.8 gm Vitamin B Complex/Vit C/Folic Acid (Nephro-Alonzo) 1 tab PO DAILY [facility] Last Admin: 12/02/16 10:12 Dose: Not Given - Labs Labs: 12/02/16 07:05 12/02/16 07:05 PT 11.5 SECONDS (9.7-12.2) 11/28/16 14:27 INR 1.0 11/28/16 14:27 APTT 29 SECONDS (21-34) 11/28/16 14:27 Assessment and Plan - Assessment and Plan (Free Text) Assessment: ESRD ON HD TTS .. TO BE CONTINUED ANEMIA OF CKD .. H/H LOW .. ON EPO AND FERRLICIT SEPSIS ON IVAB MULTIPLE CO MORBIDITIES P : C/O CURRENT CARE C/O RENAL DIET .. INCLUDING FR 1000 CC/D C/O CURRENT MEDS
[2016-12-02] MEDS: (Lantus) Insulin Glargine, Recombinant SC SCH (21:19)
[2016-12-03 02:05] LABS: BASO # 0.2 K/uL (0.0-0.2); BASO % 1.3 % (0.0-2.0); EOS # 0.7 K/uL (0.0-0.7); EOS % 5.9 % (0.0-4.0); LYMPH # 1.6 K/uL (1.0-4.3); MEAN CELL VOLUME 95.8 fL (81.0-99.0); MEAN CORPUSCULAR HEMOGLOBIN 29.4 pg (27.0-31.0); MEAN CORPUSCULAR HGB CONC 30.7 g/dL (33.0-37.0); MEAN PLATELET VOLUME 9.6 fL (7.2-11.7); MONO # 1.1 K/uL (0.0-0.8); MONO % 8.9 % (0.0-10.0); NEUT # 8.8 K/uL (1.8-7.0); NEUT % 70.9 % (50.0-75.0); NRBC % 0.1 % (0.0-2.0); RBC 3.05 Mil/uL (3.80-5.20); RED CELL DISTRIBUTION WIDTH 19.8 % (11.5-14.5); WHITE BLOOD COUNT 12.4 K/uL (4.8-10.8)
[2016-12-03] MEDS ORDERED: Dextrose 50% SYRINGE Inj (50 ml) ONE (04:05)
[2016-12-03] MEDS ORDERED: Dextrose 50% SYRINGE Inj (50 ml) IV STA ×2 (04:08→11:26)
[2016-12-03] MEDS: (Novolin R) Insulin Human Regular 100 units/ml vial SC SCH ×4 (07:47→21:31)
--- NOTE | 2016-12-03 08:25 | CP.PCM.PN ---
Subjective - Date & Time of Evaluation Date of Evaluation: 12/03/16 Time of Evaluation: 08:24 - Subjective Subjective: 71 y/o female seen at bedside for left foot lateral and plantar ulcer. Pt is AAOx3 and is in NAD. Pt denies of any acute overnight events. Pt denies of any pain to the site. Patient denies any recent F/N/V/C/SOB. Patient denies any further pedal complaints at this time. Objective - Vital Signs/Intake and Output Vital Signs (last 24 hours): Temp Pulse Resp BP Pulse Ox 97.6 F 72 20 155/68 H 99 12/03/16 08:06 12/03/16 08:06 12/03/16 08:06 12/03/16 08:06 12/03/16 08:06 Intake and Output: 12/03/16 12/03/16 06:59 18:59 Intake Total 1700 Balance 1700 - Medications Medications: Current Medications Allopurinol (Zyloprim) 100 mg PO DAILY [facility] Last Admin: 12/02/16 10:12 Dose: Not Given Clotrimazole (Lotrimin 1%) 0 gm TOP BID [facility] Last Admin: 12/02/16 17:27 Dose: 1 applic Collagenase (Santyl) 30 gm TOP BID [facility] Last Admin: 12/02/16 17:27 Dose: 1 applic Docusate Sodium (Colace) 100 mg PO TID [facility] Last Admin: 12/02/16 17:24 Dose: 100 mg Epoetin Maxwell (Procrit) 10,000 unit IV TTS [facility] Last Admin: 12/02/16 09:16 Dose: 10,000 unit Ergocalciferol (Drisdol 50,000 Intl Units Cap) 1 cap PO QWK [facility] Last Admin: 11/29/16 10:00 Dose: 1 cap Escitalopram Oxalate (Lexapro) 10 mg PO DAILY [facility] Last Admin: 12/02/16 10:12 Dose: Not Given Famotidine (Pepcid) 20 mg PO BID [facility] Last Admin: 12/02/16 17:24 Dose: 20 mg Ferric Sodium Gluconate Complex (Ferrlecit) 125 mg IVPB DAILY [facility] Stop: 12/07/16 10:01 Last Admin: 12/02/16 09:17 Dose: 125 mg Ferrous Sulfate (Feosol) 325 mg PO DAILY [facility] Last Admin: 12/02/16 10:11 Dose: Not Given Furosemide (Lasix) 40 mg IVP DAILY [facility] Last Admin: 12/02/16 10:11 Dose: Not Given Heparin Sodium (Porcine) (Heparin) 5,000 units SC Q12 [facility] Last Admin: 12/02/16 21:18 Dose: 5,000 units Heparin Sodium (Porcine) (Heparin) 3,000 units IVP TTS [facility] Last Admin: 12/02/16 10:41 Dose: 3,000 units Heparin Sodium (Porcine) (Heparin) 3,700 units IVP TTS [facility] Last Admin: 12/02/16 10:42 Dose: 3,700 units Hydralazine HCl (Apresoline) 50 mg PO BID [facility] Last Admin: 12/02/16 17:24 Dose: 50 mg Cefepime HCl (Maxipime Iv 1 Gm Premix) 1 gm in 50 mls @ 100 mls/hr IVPB Q24H [facility] Last Admin: 12/02/16 14:07 Dose: 100 mls/hr Vancomycin HCl 1 gm/ Sodium (Chloride) 250 mls @ 166.7 mls/hr IVPB TTS [facility] Stop: 12/11/16 11:30 Last Admin: 12/02/16 12:52 Dose: 166.7 mls/hr Insulin Glargine (Lantus) 40 unit SC [facility] Last Admin: 12/02/16 21:19 Dose: 40 u Insulin Human Regular (Novolin R) 0 unit SC ACHS [facility] PRN Reason: Protocol Last Admin: 12/03/16 07:47 Dose: Not Given Losartan Potassium (Cozaar) 100 mg PO DAILY [facility] Last Admin: 12/03/16 08:19 Dose: 100 mg Metolazone (Zaroxolyn) 5 mg PO DAILY [facility] Last Admin: 12/02/16 10:12 Dose: Not Given Mupirocin (Bactroban Ointment) 0 gm TOP BID [facility] Last Admin: 12/02/16 17:26 Dose: 1 applic Oxycodone/Acetaminophen (Percocet 5/325 Mg Tab) 1 tab PO Q6H PRN PRN Reason: Pain, severe (8-10) Stop: 12/03/16 19:16 Last Admin: 12/02/16 08:59 Dose: 1 tab Rosuvastatin Calcium (Crestor) 10 mg PO HS [facility] Last Admin: 12/02/16 21:18 Dose: 10 mg Sevelamer Carbonate (Renvela) 0.8 gm PO TIDCC [facility] Last Admin: 12/02/16 17:23 Dose: 0.8 gm Vitamin B Complex/Vit C/Folic Acid (Nephro-Alonzo) 1 tab PO DAILY [facility] Last Admin: 12/02/16 10:12 Dose: Not Given - Labs Labs: 12/03/16 01:59 12/02/16 07:05 PT 11.5 SECONDS (9.7-12.2) 11/28/16 14:27 INR 1.0 11/28/16 14:27 APTT 29 SECONDS (21-34) 11/28/16 14:27 - Constitutional Appears: Well, Non-toxic, No Acute Distress - Extremities Exam Additional comments: VASC: DP/PT pulses palpable 1/4 b/l. CFT < 3 seconds to all digits, temperature gradient is warm to cool. Moderate pitting edema noted to b/l lower extremities DERM: Velazco stage 1 ulceration seen at lateral and plantar heel on left foot. No purulent drainage, malodor, undermining, tracking, periwound erythema or other clinical signs of infection noted to the area. Hyperkeratotic periwound area noted with mild maceration seen at plantar aspect of wound. Erythematous skin changes noted to anterior shins b/l (possible hemosiderin deposition). No other open lesions noted at this time. NEURO: Epicritic and protective sensation grossly intact b/l ORTHO: Mild pain on palpation noted to ulcer site of left foot - Neurological Exam Neurological Exam: Alert, Awake, Oriented x3 - Psychiatric Exam Psychiatric exam: Normal Affect, Normal Mood Assessment and Plan - Assessment and Plan (Free Text) Assessment: 71 year old female seen at bedside with left foot ulcer secondary to DM, ESRD, CHF and CKD Plan: Pt evaluated and chart reviewd Pt discussed in details with attending Dr. Molina Labs and vitals reviewed (afebrile), WBC 12.4 CUCO/PVR 10/22/16: left: .35, right .98 left foot heel ulcer dressed with Santyl, 4x4 gauze and kerlix cont. wearing offloading boots while in bed Continue with abx per ID Podiatry will continue to follow while in house
[2016-12-03 10:13] LABS: HEMOGLOBIN 10.3 g/dL (11.0-16.0); MEAN CELL VOLUME 95.3 fL (81.0-99.0); MEAN CORPUSCULAR HEMOGLOBIN 29.6 pg (27.0-31.0); MEAN CORPUSCULAR HGB CONC 31.1 g/dL (33.0-37.0); MEAN PLATELET VOLUME 9.8 fL (7.2-11.7); RBC 3.47 Mil/uL (3.80-5.20); RED CELL DISTRIBUTION WIDTH 18.4 % (11.5-14.5); WHITE BLOOD COUNT 14.5 K/uL (4.8-10.8)
[2016-12-03 10:21] LABS: INR 1.1; PROTHROMBIN TIME 11.9 SECONDS (9.7-12.2)
[2016-12-03 10:28] LABS: CALCIUM 9.1 mg/dl (8.6-10.4)
[2016-12-03] MEDS: Sevelamer Carb 0.8 gm/Packet PO SCH ×2 (11:59→18:45)
--- NOTE | 2016-12-03 12:09 | CP.PCM.PN ---
Subjective - Date & Time of Evaluation Date of Evaluation: 12/03/16 Time of Evaluation: 12:09 - Subjective Subjective: AFEBRILE FOR OR TODAY FOR DEBRIDEMENT OF WOUND. Objective - Vital Signs/Intake and Output Vital Signs (last 24 hours): Temp Pulse Resp BP Pulse Ox 97.6 F 72 20 155/68 H 99 12/03/16 08:06 12/03/16 08:06 12/03/16 08:06 12/03/16 08:06 12/03/16 08:06 Intake and Output: 12/03/16 12/03/16 06:59 18:59 Intake Total 1700 Balance 1700 - Medications Medications: Current Medications Allopurinol (Zyloprim) 100 mg PO DAILY [facility] Last Admin: 12/02/16 10:12 Dose: Not Given Clotrimazole (Lotrimin 1%) 0 gm TOP BID [facility] Last Admin: 12/02/16 17:27 Dose: 1 applic Collagenase (Santyl) 30 gm TOP BID [facility] Last Admin: 12/02/16 17:27 Dose: 1 applic Docusate Sodium (Colace) 100 mg PO TID [facility] Last Admin: 12/03/16 11:57 Dose: Not Given Epoetin Maxwell (Procrit) 10,000 unit IV TTS [facility] Last Admin: 12/02/16 09:16 Dose: 10,000 unit Ergocalciferol (Drisdol 50,000 Intl Units Cap) 1 cap PO QWK [facility] Last Admin: 11/29/16 10:00 Dose: 1 cap Escitalopram Oxalate (Lexapro) 10 mg PO DAILY [facility] Last Admin: 12/02/16 10:12 Dose: Not Given Famotidine (Pepcid) 20 mg PO BID [facility] Last Admin: 12/03/16 11:59 Dose: Not Given Ferric Sodium Gluconate Complex (Ferrlecit) 125 mg IVPB DAILY [facility] Stop: 12/07/16 10:01 Last Admin: 12/02/16 09:17 Dose: 125 mg Ferrous Sulfate (Feosol) 325 mg PO DAILY [facility] Last Admin: 12/02/16 10:11 Dose: Not Given Furosemide (Lasix) 40 mg IVP DAILY [facility] Last Admin: 12/02/16 10:11 Dose: Not Given Heparin Sodium (Porcine) (Heparin) 5,000 units SC Q12 [facility] Last Admin: 12/03/16 12:00 Dose: Not Given Heparin Sodium (Porcine) (Heparin) 3,000 units IVP TTS [facility] Last Admin: 12/02/16 10:41 Dose: 3,000 units Heparin Sodium (Porcine) (Heparin) 3,700 units IVP TTS [facility] Last Admin: 12/02/16 10:42 Dose: 3,700 units Hydralazine HCl (Apresoline) 50 mg PO BID [facility] Last Admin: 12/03/16 11:57 Dose: Not Given Cefepime HCl (Maxipime Iv 1 Gm Premix) 1 gm in 50 mls @ 100 mls/hr IVPB Q24H [facility] Last Admin: 12/02/16 14:07 Dose: 100 mls/hr Vancomycin HCl 1 gm/ Sodium (Chloride) 250 mls @ 166.7 mls/hr IVPB TTS [facility] Stop: 12/11/16 11:30 Last Admin: 12/02/16 12:52 Dose: 166.7 mls/hr Insulin Glargine (Lantus) 40 unit SC [facility] Last Admin: 12/02/16 21:19 Dose: 40 u Insulin Human Regular (Novolin R) 0 unit SC ACHS [facility] PRN Reason: Protocol Last Admin: 12/03/16 12:01 Dose: Not Given Losartan Potassium (Cozaar) 100 mg PO DAILY [facility] Last Admin: 12/03/16 12:04 Dose: Not Given Metolazone (Zaroxolyn) 5 mg PO DAILY [facility] Last Admin: 12/02/16 10:12 Dose: Not Given Mupirocin (Bactroban Ointment) 0 gm TOP BID [facility] Last Admin: 12/02/16 17:26 Dose: 1 applic Oxycodone/Acetaminophen (Percocet 5/325 Mg Tab) 1 tab PO Q6H PRN PRN Reason: Pain, severe (8-10) Stop: 12/03/16 19:16 Last Admin: 12/02/16 08:59 Dose: 1 tab Rosuvastatin Calcium (Crestor) 10 mg PO HS [facility] Last Admin: 12/02/16 21:18 Dose: 10 mg Sevelamer Carbonate (Renvela) 0.8 gm PO TIDCC [facility] Last Admin: 12/03/16 11:59 Dose: Not Given Vitamin B Complex/Vit C/Folic Acid (Nephro-Alonzo) 1 tab PO DAILY [facility] Last Admin: 12/02/16 10:12 Dose: Not Given - Labs Labs: 12/03/16 10:00 12/03/16 10:00 PT 11.9 SECONDS (9.7-12.2) 12/03/16 10:00 INR 1.1 12/03/16 10:00 APTT 34 SECONDS (21-34) 12/03/16 10:00 - Constitutional Appears: No Acute Distress - Head Exam Head Exam: NORMAL INSPECTION - Eye Exam Eye Exam: EOMI, PERRL - ENT Exam ENT Exam: Normal Oropharynx - Respiratory Exam Respiratory Exam: Clear to Ausculation Bilateral, NORMAL BREATHING PATTERN - Cardiovascular Exam Cardiovascular Exam: REGULAR RHYTHM, +S1, +S2 - GI/Abdominal Exam GI & Abdominal Exam: Soft, Normal Bowel Sounds - Extremities Exam Extremities Exam: Pedal Edema. absent: Calf Tenderness Additional comments: LT AVF SITE DRESSING IN PLACE Left hand edema, left av fistual wound draining - Neurological Exam Neurological Exam: Awake, CN II-XII Intact, Normal Gait, Oriented x3 - Psychiatric Exam Psychiatric exam: Normal Mood - Skin Skin Exam: Normal Color, Warm Assessment and Plan (1) Wound infection after surgery Assessment & Plan: WOUND CULTURES +VE SERRATIA MARCESCENS/ MSSA -S- CEFEPIME/AND vANCO. CONTINUE ON iv CEFEPIME 1 G EVERY 24 HOURLY. 11/29/16 CONTINUE iv VANCOMYCIN 1 G POST EACH HEMODIALYSIS TTS X 5 DOSES FOR STAPH/ STREPT COVERAGE PATIENT FOR DEBRIDEMENT AND FLUSHING OF THE WOUND PER SURGER TODAY. F/U REPEAT CULTURES Status: Acute Status: Acute (2) Cellulitis Assessment & Plan: IMPROVING Status: Acute (3) Foot ulcer Assessment & Plan: PATIENT ALSO HAS A LEFT LATERAL PLANTAR ULCER X 2 MONTHS ULCER 1CM ,DRY ,-VE DRAINAGE. LWC PER PODIATRY. Status: Acute (4) Peripheral vascular disease Status: Acute (5) Anemia, chronic disease Status: Chronic (6) CKD (chronic kidney disease) stage 3, GFR 30-59 ml/min Assessment & Plan: ON HD TTS Status: Chronic (7) DM2 (diabetes mellitus, type 2) Status: Chronic
[2016-12-03] MEDS: Ferric Sodium Gluconat Complex 62.5 mg/5 ml Vial IVPB SCH (12:15)
[2016-12-03] MEDS: Clotrimazole 1% Cream(30 gm) TOP SCH ×2 (12:19→18:46)
[2016-12-03] MEDS: Collagenase 250 Units/gm Ointment(30 gm) TOP SCH ×2 (13:47→18:46)
[2016-12-03] MEDS: metOLazone 5 MG TAB PO SCH (13:49)
[2016-12-03] MEDS: Multivitamin Vitamin B Complex (Nephro-Vite) Tab PO SCH (13:49)
[2016-12-03] MEDS: Cefepime IV 1 gm in Dextrose 1 GM/50 ML BAG IVPB SCH (13:52)
[2016-12-03] MEDS ORDERED: Etomidate 20 mg/10ml Inj IV ONE (16:13)
[2016-12-03] MEDS ORDERED: Phenylephrine 10 mg/ml Inj ONE (16:19)
[2016-12-03] MEDS ORDERED: Lactated Ringer's 1,000 ML IV ONE (16:24)
[2016-12-03] MEDS ORDERED: Sodium Chloride 0.9% 500 ML IV ONE (16:35)
[2016-12-03] MEDS ORDERED: Midazolam 2 MG/2 ML VIAL ONE (16:44)
--- NOTE | 2016-12-03 18:58 | CP.PCM.PN ---
<Wanda Marquez - Last Filed: 12/03/16 18:55> Subjective - Date & Time of Evaluation Date of Evaluation: 12/03/16 Time of Evaluation: 07:30 - Subjective Subjective: Patient was seen today at bedside in no acute distress. Reports pain is less than yesterday in left arm. Patient has pain in right arm from transfusion. Nurse reports 20 gauge needle in arm was taken out after transfusion and 24 gauge needle put into hand. Patient transfused 2 units PRBCs overnight. Denies chest pain, palpitations, SOB, n/v, cough, dizziness. Objective - Vital Signs/Intake and Output Vital Signs (last 24 hours): Temp Pulse Resp BP Pulse Ox 98.1 F 86 16 181/75 H 97 12/03/16 18:15 12/03/16 18:15 12/03/16 18:15 12/03/16 18:15 12/03/16 18:15 Intake and Output: 12/03/16 12/03/16 06:59 18:59 Intake Total 1700 150 Balance 1700 150 - Medications Medications: Current Medications Allopurinol (Zyloprim) 100 mg PO DAILY [facility] Last Admin: 12/03/16 13:49 Dose: Not Given Clotrimazole (Lotrimin 1%) 0 gm TOP BID [facility] Last Admin: 12/03/16 18:46 Dose: 1 applic Collagenase (Santyl) 30 gm TOP BID [facility] Last Admin: 12/03/16 18:46 Dose: 1 applic Docusate Sodium (Colace) 100 mg PO TID [facility] Last Admin: 12/03/16 18:44 Dose: 100 mg Epoetin Maxwell (Procrit) 10,000 unit IV TTS [facility] Last Admin: 12/02/16 09:16 Dose: 10,000 unit Ergocalciferol (Drisdol 50,000 Intl Units Cap) 1 cap PO QWK [facility] Last Admin: 11/29/16 10:00 Dose: 1 cap Escitalopram Oxalate (Lexapro) 10 mg PO DAILY [facility] Last Admin: 12/03/16 13:49 Dose: Not Given Famotidine (Pepcid) 20 mg PO BID [facility] Last Admin: 12/03/16 18:44 Dose: 20 mg Ferric Sodium Gluconate Complex (Ferrlecit) 125 mg IVPB DAILY [facility] Stop: 12/07/16 10:01 Last Admin: 12/03/16 12:15 Dose: 125 mg Ferrous Sulfate (Feosol) 325 mg PO DAILY [facility] Last Admin: 12/03/16 13:49 Dose: Not Given Furosemide (Lasix) 40 mg IVP DAILY [facility] Last Admin: 12/03/16 12:20 Dose: 40 mg Heparin Sodium (Porcine) (Heparin) 5,000 units SC Q12 [facility] Last Admin: 12/03/16 12:00 Dose: Not Given Heparin Sodium (Porcine) (Heparin) 3,000 units IVP TTS [facility] Last Admin: 12/02/16 10:41 Dose: 3,000 units Heparin Sodium (Porcine) (Heparin) 3,700 units IVP TTS [facility] Last Admin: 12/02/16 10:42 Dose: 3,700 units Hydralazine HCl (Apresoline) 50 mg PO BID [facility] Last Admin: 12/03/16 18:44 Dose: 50 mg Cefepime HCl (Maxipime Iv 1 Gm Premix) 1 gm in 50 mls @ 100 mls/hr IVPB Q24H [facility] Last Admin: 12/03/16 13:52 Dose: 100 mls/hr Vancomycin HCl 1 gm/ Sodium (Chloride) 250 mls @ 166.7 mls/hr IVPB TTS [facility] Stop: 12/11/16 11:30 Last Admin: 12/02/16 12:52 Dose: 166.7 mls/hr Insulin Glargine (Lantus) 40 unit SC HS [facility] Last Admin: 12/02/16 21:19 Dose: 40 u Insulin Human Regular (Novolin R) 0 unit SC ACHS [facility] PRN Reason: Protocol Last Admin: 12/03/16 18:46 Dose: Not Given Losartan Potassium (Cozaar) 100 mg PO DAILY [facility] Last Admin: 12/03/16 12:04 Dose: Not Given Metolazone (Zaroxolyn) 5 mg PO DAILY [facility] Last Admin: 12/03/16 13:49 Dose: Not Given Morphine Sulfate (Morphine) 1 mg IVP Q15M PRN PRN Reason: Pain, moderate (4-7) Mupirocin (Bactroban Ointment) 0 gm TOP BID [facility] Last Admin: 12/03/16 18:47 Dose: Not Given Oxycodone/Acetaminophen (Percocet 5/325 Mg Tab) 1 tab PO Q6H PRN PRN Reason: Pain, severe (8-10) Stop: 12/03/16 19:16 Last Admin: 12/02/16 08:59 Dose: 1 tab Rosuvastatin Calcium (Crestor) 10 mg PO HS [facility] Last Admin: 12/02/16 21:18 Dose: 10 mg Sevelamer Carbonate (Renvela) 0.8 gm PO TIDCC [facility] Last Admin: 12/03/16 18:45 Dose: 0.8 gm Vitamin B Complex/Vit C/Folic Acid (Nephro-Alonzo) 1 tab PO DAILY [facility] Last Admin: 12/03/16 13:49 Dose: Not Given - Labs Labs: 12/03/16 10:00 12/03/16 10:00 PT 11.9 SECONDS (9.7-12.2) 12/03/16 10:00 INR 1.1 12/03/16 10:00 APTT 34 SECONDS (21-34) 12/03/16 10:00 - Constitutional Appears: Well, Non-toxic, No Acute Distress - Head Exam Head Exam: ATRAUMATIC, NORMAL INSPECTION, NORMOCEPHALIC - Eye Exam Eye Exam: EOMI, Normal appearance, PERRL - ENT Exam ENT Exam: Mucous Membranes Moist, Normal Exam - Neck Exam Neck Exam: Full ROM, Normal Inspection. absent: Lymphadenopathy - Respiratory Exam Respiratory Exam: Clear to Ausculation Bilateral, NORMAL BREATHING PATTERN. absent: Rales, Rhonchi, Wheezes, Respiratory Distress, Stridor - Cardiovascular Exam Cardiovascular Exam: REGULAR RHYTHM, RRR, +S1, +S2. absent: Murmur - GI/Abdominal Exam GI & Abdominal Exam: Soft, Normal Bowel Sounds. absent: Tenderness - Extremities Exam Extremities Exam: Pedal Edema. absent: Normal Inspection Additional comments: left hand edema, left arm covered in dressing b/l lower extremity erythema and edema left foot ulcer covered in dry, clean, intact dressing - Back Exam Back Exam: NORMAL INSPECTION - Neurological Exam Neurological Exam: Alert, Awake, Oriented x3 - Psychiatric Exam Psychiatric exam: Normal Affect, Normal Mood - Skin Skin Exam: absent: Intact, Normal Color Additional comments: left hand edema, left arm covered in dressing b/l lower extremity erythema and edema left foot ulcer covered in dry, clean, intact dressing Assessment and Plan - Assessment and Plan (Free Text) Assessment: (1) Wound infection after surgery Assessment and Plan: 12/03: patient went for surgery today with Dr. Melendez Continue Vanco 1 gm and Maxipime 1 gm Temp 98.9 WBC dropping 12.1--11.9--11.4 on 12/01 12/02 f/u L upper extremity doppler left arm wound culture prelim- staph aureus ID consulted, Dr eMng, Vanco and Zosyn recommended vanc/zosyn given in ED blood culture negative Status: Acute (2) Left heel ulcer Assessment and Plan: 12/02 podiatry cleaned wound and dressed with Santyl, 4X4 gauze and kerlix and recommonds cont. wearing offloading boots while in bed 11/29 foot wound: Hyperkaratotic tissue debrided from periwound area with #15 blade without incident and wound cleansed with normal saline (2) CKD (chronic kidney disease) stage 3, GFR 30-59 ml/min Assessment and Plan: HD on 11/29 via permacath con't home med: sevelamer 0.8g TIDCC Status: Chronic (3) Lower Extremity Edema 11/29 LE dopplers: negative r/o obstruction-- 12/02: abdominal u/s: diffuse fatty infiltration of the liver. minimal hepatomegaly. bilateral renal hyperechogenicity-medical renal disease inferred, 5mm midpole nonobstructing right renal calculus-unchanged 12/02: pelvic u/s: markedly limited exam- no distended bladder to provide for sonographic window to visualize pelvic anatomy (4) Anemia, chronic disease Assessment and Plan: 12/03: Patient transfused 2 units PRBCs overnight, HgB increased to 9 Hg 7.3 on 12/02, if continues to be low may need transfusion with next dialysis treatment Patient has been typed and screened ferrous sulfate 325mg po daily ferrlecit 125 mg daily Status: Chronic (5) Hypertension Assessment and Plan: con't home med: hydralazine 50mg po bid losartan 100mg po daily Status: Chronic (6) Diabetes Assessment and Plan: accuchecks ISS patient was hypoglycemic overnight and in morning, given dextrose, consider lowering Lantus tomorrow Lantus 50 u sc daily (changed from 30 on 11/30) rosuvastatin 10mg po hs Status: Acute (7) Constipation Assessment and Plan: patient has had multiple bms continue colace 100 mg po TID (7) Prophylactic measure Assessment and Plan: SCDs heparin 5000u sc q12 pepcid 20mg po bid renal diet Status: Acute <Benson Myrick Jr. - Last Filed: 12/06/16 10:24> Objective - Vital Signs/Intake and Output Vital Signs (last 24 hours): Temp Pulse Resp BP Pulse Ox 98.3 F 67 16 159/60 H 160 H 12/06/16 09:05 12/06/16 09:05 12/06/16 09:05 12/06/16 10:05 12/06/16 09:05 Intake and Output: 12/06/16 12/06/16 06:59 18:59 Intake Total 340 Balance 340 - Medications Medications: Current Medications Allopurinol (Zyloprim) 100 mg PO DAILY [facility] Last Admin: 12/06/16 09:34 Dose: Not Given Clotrimazole (Lotrimin 1%) 0 gm TOP BID [facility] Last Admin: 12/05/16 21:15 Dose: 1 applic Collagenase (Santyl) 30 gm TOP BID [facility] Last Admin: 12/06/16 09:34 Dose: Not Given Docusate Sodium (Colace) 100 mg PO TID [facility] Last Admin: 12/06/16 09:33 Dose: Not Given Epoetin Maxwell (Procrit) 10,000 unit IV TTS [facility] Last Admin: 12/06/16 09:25 Dose: 10,000 unit Ergocalciferol (Drisdol 50,000 Intl Units Cap) 1 cap PO QWK [facility] Last Admin: 11/29/16 10:00 Dose: 1 cap Escitalopram Oxalate (Lexapro) 10 mg PO DAILY [facility] Last Admin: 12/06/16 09:33 Dose: Not Given Famotidine (Pepcid) 20 mg PO DAILY [facility] Last Admin: 12/06/16 09:34 Dose: Not Given Ferric Sodium Gluconate Complex (Ferrlecit) 125 mg IVPB DAILY [facility] Stop: 12/07/16 10:01 Last Admin: 12/05/16 14:33 Dose: 125 mg Ferrous Sulfate (Feosol) 325 mg PO DAILY [facility] Last Admin: 12/06/16 09:33 Dose: Not Given Furosemide (Lasix) 40 mg IVP DAILY [facility] Last Admin: 12/06/16 09:33 Dose: Not Given Heparin Sodium (Porcine) (Heparin) 5,000 units SC Q12 [facility] Last Admin: 12/06/16 09:33 Dose: Not Given Heparin Sodium (Porcine) (Heparin) 3,000 units IVP TTS [facility] Last Admin: 12/06/16 09:25 Dose: 3,000 units Heparin Sodium (Porcine) (Heparin) 3,700 units IVP TTS [facility] Last Admin: 12/04/16 11:56 Dose: 3,700 units Hydralazine HCl (Apresoline) 50 mg PO BID [facility] Last Admin: 12/06/16 09:32 Dose: Not Given Ciprofloxacin (Cipro 200mg/100ml D5w) 100 mls @ 100 mls/hr IVPB Q12H [facility] Last Admin: 12/06/16 06:06 Dose: 100 mls/hr Insulin Glargine (Lantus) 55 unit SC HS [facility] Last Admin: 12/05/16 21:16 Dose: 55 u Insulin Human Regular (Novolin R) 0 unit SC ACHS [facility] PRN Reason: Protocol Last Admin: 12/06/16 07:44 Dose: Not Given Losartan Potassium (Cozaar) 100 mg PO DAILY [facility] Last Admin: 12/06/16 09:33 Dose: Not Given Metolazone (Zaroxolyn) 5 mg PO DAILY [facility] Last Admin: 12/06/16 09:34 Dose: Not Given Morphine Sulfate (Morphine) 1 mg IVP Q15M PRN PRN Reason: Pain, moderate (4-7) Last Admin: 12/06/16 09:28 Dose: 1 mg Mupirocin (Bactroban Ointment) 0 gm TOP BID [facility] Last Admin: 12/06/16 09:32 Dose: Not Given Polyethylene Glycol (Miralax) 17 gm PO DAILY [facility] Last Admin: 12/06/16 09:34 Dose: Not Given Rosuvastatin Calcium (Crestor) 10 mg PO HS [facility] Last Admin: 12/05/16 21:22 Dose: 10 mg Sevelamer Carbonate (Renvela) 0.8 gm PO TIDCC [facility] Last Admin: 12/06/16 07:56 Dose: 0.8 gm Vitamin B Complex/Vit C/Folic Acid (Nephro-Alonzo) 1 tab PO DAILY [facility] Last Admin: 12/06/16 09:34 Dose: Not Given - Labs Labs: 12/06/16 07:11 12/06/16 07:11 PT 11.9 SECONDS (9.7-12.2) 12/03/16 10:00 INR 1.1 12/03/16 10:00 APTT 34 SECONDS (21-34) 12/03/16 10:00 Attending/Attestation - Attestation I have personally seen and examined this patient.: Yes I have fully participated in the care of the patient.: Yes I have reviewed all pertinent clinical information, including history, physical exam and plan: Yes Notes (Text): 12/06/16 10:24 Agree with resident note and findings
[2016-12-03] MEDS: (Lantus) Insulin Glargine, Recombinant SC SCH (21:34)
--- NOTE | 2016-12-03 23:52 | CP.PCM.PN ---
Subjective - Date & Time of Evaluation Date of Evaluation: 12/03/16 Time of Evaluation: 15:00 - Subjective Subjective: SEEN ON RENAL F/U ALL PREVIOUS EN MR REVIEWED ON HD T T S RECIEVED 2 U PRBC Objective - Vital Signs/Intake and Output Vital Signs (last 24 hours): Temp Pulse Resp BP Pulse Ox 98.1 F 86 16 181/75 H 97 12/03/16 18:15 12/03/16 18:15 12/03/16 18:15 12/03/16 18:15 12/03/16 18:15 Intake and Output: 12/03/16 12/04/16 18:59 06:59 Intake Total 150 Balance 150 - Medications Medications: Current Medications Allopurinol (Zyloprim) 100 mg PO DAILY [facility] Last Admin: 12/03/16 13:49 Dose: Not Given Clotrimazole (Lotrimin 1%) 0 gm TOP BID [facility] Last Admin: 12/03/16 18:46 Dose: 1 applic Collagenase (Santyl) 30 gm TOP BID [facility] Last Admin: 12/03/16 18:46 Dose: 1 applic Docusate Sodium (Colace) 100 mg PO TID [facility] Last Admin: 12/03/16 18:44 Dose: 100 mg Epoetin Maxwell (Procrit) 10,000 unit IV TTS [facility] Last Admin: 12/02/16 09:16 Dose: 10,000 unit Ergocalciferol (Drisdol 50,000 Intl Units Cap) 1 cap PO QWK [facility] Last Admin: 11/29/16 10:00 Dose: 1 cap Escitalopram Oxalate (Lexapro) 10 mg PO DAILY [facility] Last Admin: 12/03/16 13:49 Dose: Not Given Famotidine (Pepcid) 20 mg PO BID [facility] Last Admin: 12/03/16 18:44 Dose: 20 mg Ferric Sodium Gluconate Complex (Ferrlecit) 125 mg IVPB DAILY [facility] Stop: 12/07/16 10:01 Last Admin: 12/03/16 12:15 Dose: 125 mg Ferrous Sulfate (Feosol) 325 mg PO DAILY [facility] Last Admin: 12/03/16 13:49 Dose: Not Given Furosemide (Lasix) 40 mg IVP DAILY [facility] Last Admin: 12/03/16 12:20 Dose: 40 mg Heparin Sodium (Porcine) (Heparin) 5,000 units SC Q12 [facility] Last Admin: 12/03/16 21:30 Dose: 5,000 units Heparin Sodium (Porcine) (Heparin) 3,000 units IVP TTS [facility] Last Admin: 12/02/16 10:41 Dose: 3,000 units Heparin Sodium (Porcine) (Heparin) 3,700 units IVP TTS [facility] Last Admin: 12/02/16 10:42 Dose: 3,700 units Hydralazine HCl (Apresoline) 50 mg PO BID [facility] Last Admin: 12/03/16 18:44 Dose: 50 mg Cefepime HCl (Maxipime Iv 1 Gm Premix) 1 gm in 50 mls @ 100 mls/hr IVPB Q24H [facility] Last Admin: 12/03/16 13:52 Dose: 100 mls/hr Vancomycin HCl 1 gm/ Sodium (Chloride) 250 mls @ 166.7 mls/hr IVPB TTS [facility] Stop: 12/11/16 11:30 Last Admin: 12/02/16 12:52 Dose: 166.7 mls/hr Insulin Glargine (Lantus) 40 unit SC HS [facility] Last Admin: 12/03/16 21:34 Dose: 40 u Insulin Human Regular (Novolin R) 0 unit SC ACHS [facility] PRN Reason: Protocol Last Admin: 12/03/16 21:31 Dose: Not Given Losartan Potassium (Cozaar) 100 mg PO DAILY [facility] Last Admin: 12/03/16 12:04 Dose: Not Given Metolazone (Zaroxolyn) 5 mg PO DAILY [facility] Last Admin: 12/03/16 13:49 Dose: Not Given Morphine Sulfate (Morphine) 1 mg IVP Q15M PRN PRN Reason: Pain, moderate (4-7) Mupirocin (Bactroban Ointment) 0 gm TOP BID [facility] Last Admin: 12/03/16 18:47 Dose: Not Given Rosuvastatin Calcium (Crestor) 10 mg PO HS [facility] Last Admin: 12/03/16 21:31 Dose: 10 mg Sevelamer Carbonate (Renvela) 0.8 gm PO TIDCC [facility] Last Admin: 12/03/16 18:45 Dose: 0.8 gm Vitamin B Complex/Vit C/Folic Acid (Nephro-Alonzo) 1 tab PO DAILY [facility] Last Admin: 12/03/16 13:49 Dose: Not Given - Labs Labs: 12/03/16 10:00 12/03/16 10:00 PT 11.9 SECONDS (9.7-12.2) 12/03/16 10:00 INR 1.1 12/03/16 10:00 APTT 34 SECONDS (21-34) 12/03/16 10:00 Assessment and Plan - Assessment and Plan (Free Text) Assessment: ESRD ON HD TT S .. TO BE C/O ANEMIS A OF CKD .. WAS TRANSFUSED 2 U PRBC SEPSIS ON IVAB MULTIPLE CO MORBIDIDIETS C/O CURRENT CARE
[2016-12-04] MEDS: (Novolin R) Insulin Human Regular 100 units/ml vial SC SCH ×4 (07:56→21:52)
[2016-12-04] MEDS: Sevelamer Carb 0.8 gm/Packet PO SCH ×3 (07:57→17:37)
[2016-12-04 08:49] LABS: BASO # 0.2 K/uL (0.0-0.2); BASO % 2.2 % (0.0-2.0); EOS # 0.5 K/uL (0.0-0.7); EOS % 4.1 % (0.0-4.0); HEMOGLOBIN 10.2 g/dL (11.0-16.0); LYMPH # 1.3 K/uL (1.0-4.3); LYMPH % 11.3 % (20.0-40.0); MEAN CORPUSCULAR HEMOGLOBIN 30.1 pg (27.0-31.0); MEAN CORPUSCULAR HGB CONC 31.4 g/dL (33.0-37.0); MEAN PLATELET VOLUME 9.6 fL (7.2-11.7); MONO # 1.2 K/uL (0.0-0.8); MONO % 10.3 % (0.0-10.0); NEUT # 8.1 K/uL (1.8-7.0); NEUT % 72.1 % (50.0-75.0); NRBC % 0.1 % (0.0-2.0); RBC 3.39 Mil/uL (3.80-5.20); RED CELL DISTRIBUTION WIDTH 19.6 % (11.5-14.5); WHITE BLOOD COUNT 11.3 K/uL (4.8-10.8)
[2016-12-04 08:56] LABS: ALBUMIN 3.2 g/dL (3.5-5.0)
[2016-12-04 08:59] LABS: ALB/GLOB RATIO 1.2 (1.0-2.1)
[2016-12-04 09:00] LABS: CALCIUM 8.7 mg/dl (8.6-10.4); MAGNESIUM 2.2 mg/dL (1.6-2.3)
--- NOTE | 2016-12-04 09:25 | CP.PCM.PN ---
<Wanda Marquez - Last Filed: 12/04/16 18:28> Subjective - Date & Time of Evaluation Date of Evaluation: 12/04/16 Time of Evaluation: 07:00 - Subjective Subjective: PGY1- Medicine Note- Dr. Myrick's Service Patient was seen today sitting up comfortably at bedside in no acute distress. S /p debridement of left arm wound POD#1. Reports pain is same as yesterday in left arm. Right arm pain is better. Left foot pain is tolerable and has walked around the room with assistance. Has not had a BM since being placed NPO and surgery. Denies chest pain, palpitations, headache, dizziness, n/v. Going for HD later today. Objective - Vital Signs/Intake and Output Vital Signs (last 24 hours): Temp Pulse Resp BP Pulse Ox 97.4 F L 74 16 167/87 H 99 12/04/16 08:35 12/04/16 08:35 12/04/16 08:35 12/04/16 08:35 12/04/16 08:35 Intake and Output: 12/04/16 12/04/16 06:59 18:59 Intake Total 0 Balance 0 - Medications Medications: Current Medications Allopurinol (Zyloprim) 100 mg PO DAILY [facility] Last Admin: 12/03/16 13:49 Dose: Not Given Clotrimazole (Lotrimin 1%) 0 gm TOP BID [facility] Last Admin: 12/03/16 18:46 Dose: 1 applic Collagenase (Santyl) 30 gm TOP BID [facility] Last Admin: 12/03/16 18:46 Dose: 1 applic Docusate Sodium (Colace) 100 mg PO TID [facility] Last Admin: 12/03/16 18:44 Dose: 100 mg Epoetin Maxwell (Procrit) 10,000 unit IV TTS [facility] Last Admin: 12/02/16 09:16 Dose: 10,000 unit Ergocalciferol (Drisdol 50,000 Intl Units Cap) 1 cap PO QWK [facility] Last Admin: 11/29/16 10:00 Dose: 1 cap Escitalopram Oxalate (Lexapro) 10 mg PO DAILY [facility] Last Admin: 12/03/16 13:49 Dose: Not Given Famotidine (Pepcid) 20 mg PO BID [facility] Last Admin: 12/03/16 18:44 Dose: 20 mg Ferric Sodium Gluconate Complex (Ferrlecit) 125 mg IVPB DAILY [facility] Stop: 12/07/16 10:01 Last Admin: 12/03/16 12:15 Dose: 125 mg Ferrous Sulfate (Feosol) 325 mg PO DAILY [facility] Last Admin: 12/03/16 13:49 Dose: Not Given Furosemide (Lasix) 40 mg IVP DAILY [facility] Last Admin: 12/03/16 12:20 Dose: 40 mg Heparin Sodium (Porcine) (Heparin) 5,000 units SC Q12 [facility] Last Admin: 12/03/16 21:30 Dose: 5,000 units Heparin Sodium (Porcine) (Heparin) 3,000 units IVP TTS [facility] Last Admin: 12/02/16 10:41 Dose: 3,000 units Heparin Sodium (Porcine) (Heparin) 3,700 units IVP TTS [facility] Last Admin: 12/02/16 10:42 Dose: 3,700 units Hydralazine HCl (Apresoline) 50 mg PO BID [facility] Last Admin: 12/03/16 18:44 Dose: 50 mg Cefepime HCl (Maxipime Iv 1 Gm Premix) 1 gm in 50 mls @ 100 mls/hr IVPB Q24H [facility] Last Admin: 12/03/16 13:52 Dose: 100 mls/hr Vancomycin HCl 1 gm/ Sodium (Chloride) 250 mls @ 166.7 mls/hr IVPB TTS [facility] Stop: 12/11/16 11:30 Last Admin: 12/02/16 12:52 Dose: 166.7 mls/hr Insulin Glargine (Lantus) 40 unit SC HS [facility] Last Admin: 12/03/16 21:34 Dose: 40 u Insulin Human Regular (Novolin R) 0 unit SC ACHS [facility] PRN Reason: Protocol Last Admin: 12/04/16 07:56 Dose: Not Given Losartan Potassium (Cozaar) 100 mg PO DAILY [facility] Last Admin: 12/03/16 12:04 Dose: Not Given Metolazone (Zaroxolyn) 5 mg PO DAILY [facility] Last Admin: 12/03/16 13:49 Dose: Not Given Morphine Sulfate (Morphine) 1 mg IVP Q15M PRN PRN Reason: Pain, moderate (4-7) Mupirocin (Bactroban Ointment) 0 gm TOP BID [facility] Last Admin: 12/03/16 18:47 Dose: Not Given Rosuvastatin Calcium (Crestor) 10 mg PO HS [facility] Last Admin: 12/03/16 21:31 Dose: 10 mg Sevelamer Carbonate (Renvela) 0.8 gm PO TIDCC [facility] Last Admin: 12/04/16 07:57 Dose: Not Given Vitamin B Complex/Vit C/Folic Acid (Nephro-Alonzo) 1 tab PO DAILY [facility] Last Admin: 12/03/16 13:49 Dose: Not Given - Labs Labs: 12/04/16 08:40 12/04/16 08:40 PT 11.9 SECONDS (9.7-12.2) 12/03/16 10:00 INR 1.1 12/03/16 10:00 APTT 34 SECONDS (21-34) 12/03/16 10:00 - Constitutional Appears: Well, Non-toxic, No Acute Distress - Head Exam Head Exam: ATRAUMATIC, NORMAL INSPECTION, NORMOCEPHALIC - Eye Exam Eye Exam: EOMI, Normal appearance, PERRL - ENT Exam ENT Exam: Mucous Membranes Moist - Neck Exam Neck Exam: Full ROM, Normal Inspection. absent: Lymphadenopathy - Respiratory Exam Respiratory Exam: Clear to Ausculation Bilateral, NORMAL BREATHING PATTERN. absent: Rales, Rhonchi, Wheezes, Respiratory Distress, Stridor - Cardiovascular Exam Cardiovascular Exam: REGULAR RHYTHM, RRR. absent: Gallop, Rubs, Murmur - GI/Abdominal Exam GI & Abdominal Exam: Soft, Normal Bowel Sounds. absent: Distended, Firm, Guarding, Rigid - Extremities Exam Extremities Exam: Full ROM, Pedal Edema Additional comments: left arm incision wrapped, left hand edema decreasing b/l with erythema and edema left foot ulcer wrapped - Neurological Exam Neurological Exam: Alert, Awake, Oriented x3 - Psychiatric Exam Psychiatric exam: Normal Affect, Normal Mood - Skin Skin Exam: Warm. absent: Intact Additional comments: left arm s/p wound debridement b/l legs erythematous and edematous Assessment and Plan - Assessment and Plan (Free Text) Assessment: (1) Wound infection after surgery Assessment and Plan: 12/04: patient to go for another wound debridement with Dr. Melendez tomorrow 12/03: patient went for surgery today with Dr. Melendez for left arm wound debridement continue and Maxipime 1 gm Vanco stopped 12/04, clindamycin 300 mg po q8 started due to lack of iv access Temp 98.9 WBC dropping 12.1--11.9--11.4 on 12/01 12/02 f/u L upper extremity doppler left arm wound culture prelim- staph aureus ID consulted, Niki Medina and Miya recommended vanc/zosyn given in ED blood culture negative 12/04: patient to get PICC line tomorrow for antibiotics due to difficulty with IV access Status: Acute (2) Left heel ulcer Assessment and Plan: Podiatry consult, Dr. Stevens, help appreciated 12/02 podiatry cleaned wound and dressed with Santyl, 4X4 gauze and kerlix and recommonds cont. wearing offloading boots while in bed 11/29 foot wound: Hyperkaratotic tissue debrided from periwound area with #15 blade without incident and wound cleansed with normal saline (2) CKD (chronic kidney disease) stage 3, GFR 30-59 ml/min Assessment and Plan: 12/04: HD today HD on 11/29 via permacath con't home med: sevelamer 0.8g TIDCC Status: Chronic (3) Lower Extremity Edema 11/29 LE dopplers: negative r/o obstruction-- 12/02: abdominal u/s: diffuse fatty infiltration of the liver. minimal hepatomegaly. bilateral renal hyperechogenicity-medical renal disease inferred, 5mm midpole nonobstructing right renal calculus-unchanged 12/02: pelvic u/s: markedly limited exam- no distended bladder to provide for sonographic window to visualize pelvic anatomy (4) Anemia, chronic disease Assessment and Plan: 12/04: Hgb 10.2 12/03: Patient transfused 2 units PRBCs overnight, HgB increased to 9 Hg 7.3 on 12/02, if continues to be low may need transfusion with next dialysis treatment Patient has been typed and screened ferrous sulfate 325mg po daily ferrlecit 125 mg daily Status: Chronic (5) Hypertension Assessment and Plan: con't home med: hydralazine 50mg po bid losartan 100mg po daily Status: Chronic (6) Diabetes Assessment and Plan: accuchecks ISS Lantus 50 u sc daily (changed from 30 on 11/30) rosuvastatin 10mg po hs Status: Acute (7) Constipation Assessment and Plan: patient has had multiple bms continue colace 100 mg po TID (7) Prophylactic measure Assessment and Plan: SCDs heparin 5000u sc q12 pepcid 20mg daily (renally dosed) renal diet Status: Acute <Benson Myrick Jr. - Last Filed: 12/06/16 10:27> Objective - Vital Signs/Intake and Output Vital Signs (last 24 hours): Temp Pulse Resp BP Pulse Ox 98.3 F 67 16 159/60 H 160 H 12/06/16 09:05 12/06/16 09:05 12/06/16 09:05 12/06/16 10:05 12/06/16 09:05 Intake and Output: 12/06/16 12/06/16 06:59 18:59 Intake Total 340 Balance 340 - Medications Medications: Current Medications Allopurinol (Zyloprim) 100 mg PO DAILY [facility] Last Admin: 12/06/16 09:34 Dose: Not Given Clotrimazole (Lotrimin 1%) 0 gm TOP BID [facility] Last Admin: 12/05/16 21:15 Dose: 1 applic Collagenase (Santyl) 30 gm TOP BID [facility] Last Admin: 12/06/16 09:34 Dose: Not Given Docusate Sodium (Colace) 100 mg PO TID [facility] Last Admin: 12/06/16 09:33 Dose: Not Given Epoetin Maxwell (Procrit) 10,000 unit IV TTS [facility] Last Admin: 12/06/16 09:25 Dose: 10,000 unit Ergocalciferol (Drisdol 50,000 Intl Units Cap) 1 cap PO QWK [facility] Last Admin: 11/29/16 10:00 Dose: 1 cap Escitalopram Oxalate (Lexapro) 10 mg PO DAILY [facility] Last Admin: 12/06/16 09:33 Dose: Not Given Famotidine (Pepcid) 20 mg PO DAILY [facility] Last Admin: 12/06/16 09:34 Dose: Not Given Ferric Sodium Gluconate Complex (Ferrlecit) 125 mg IVPB DAILY [facility] Stop: 12/07/16 10:01 Last Admin: 12/05/16 14:33 Dose: 125 mg Ferrous Sulfate (Feosol) 325 mg PO DAILY [facility] Last Admin: 12/06/16 09:33 Dose: Not Given Furosemide (Lasix) 40 mg IVP DAILY [facility] Last Admin: 12/06/16 09:33 Dose: Not Given Heparin Sodium (Porcine) (Heparin) 5,000 units SC Q12 [facility] Last Admin: 12/06/16 09:33 Dose: Not Given Heparin Sodium (Porcine) (Heparin) 3,000 units IVP TTS [facility] Last Admin: 12/06/16 09:25 Dose: 3,000 units Heparin Sodium (Porcine) (Heparin) 3,700 units IVP TTS [facility] Last Admin: 12/04/16 11:56 Dose: 3,700 units Hydralazine HCl (Apresoline) 50 mg PO BID [facility] Last Admin: 12/06/16 09:32 Dose: Not Given Ciprofloxacin (Cipro 200mg/100ml D5w) 100 mls @ 100 mls/hr IVPB Q12H [facility] Last Admin: 12/06/16 06:06 Dose: 100 mls/hr Insulin Glargine (Lantus) 55 unit SC HS [facility] Last Admin: 12/05/16 21:16 Dose: 55 u Insulin Human Regular (Novolin R) 0 unit SC ACHS [facility] PRN Reason: Protocol Last Admin: 12/06/16 07:44 Dose: Not Given Losartan Potassium (Cozaar) 100 mg PO DAILY [facility] Last Admin: 12/06/16 09:33 Dose: Not Given Metolazone (Zaroxolyn) 5 mg PO DAILY [facility] Last Admin: 12/06/16 09:34 Dose: Not Given Morphine Sulfate (Morphine) 1 mg IVP Q15M PRN PRN Reason: Pain, moderate (4-7) Last Admin: 12/06/16 09:28 Dose: 1 mg Mupirocin (Bactroban Ointment) 0 gm TOP BID [facility] Last Admin: 12/06/16 09:32 Dose: Not Given Polyethylene Glycol (Miralax) 17 gm PO DAILY [facility] Last Admin: 12/06/16 09:34 Dose: Not Given Rosuvastatin Calcium (Crestor) 10 mg PO HS [facility] Last Admin: 12/05/16 21:22 Dose: 10 mg Sevelamer Carbonate (Renvela) 0.8 gm PO TIDCC [facility] Last Admin: 12/06/16 07:56 Dose: 0.8 gm Vitamin B Complex/Vit C/Folic Acid (Nephro-Alonzo) 1 tab PO DAILY [facility] Last Admin: 12/06/16 09:34 Dose: Not Given - Labs Labs: 12/06/16 07:11 12/06/16 07:11 PT 11.9 SECONDS (9.7-12.2) 12/03/16 10:00 INR 1.1 12/03/16 10:00 APTT 34 SECONDS (21-34) 12/03/16 10:00 Attending/Attestation - Attestation I have personally seen and examined this patient.: Yes I have fully participated in the care of the patient.: Yes I have reviewed all pertinent clinical information, including history, physical exam and plan: Yes Notes (Text): 12/06/16 10:26 Agree with resident note and findings
[2016-12-04] MEDS: Clotrimazole 1% Cream(30 gm) TOP SCH ×2 (09:58→17:38)
[2016-12-04] MEDS: Collagenase 250 Units/gm Ointment(30 gm) TOP SCH ×2 (09:59→17:40)
[2016-12-04] MEDS: Ferric Sodium Gluconat Complex 62.5 mg/5 ml Vial IVPB SCH (11:05)
[2016-12-04] MEDS: Epoetin Alfa 10,000 unit/ml Dialysis IV SCH (11:07)
[2016-12-04] MEDS: Lidocaine 1% Inj (20ml) ONE (12:55)
[2016-12-04] MEDS ORDERED: Midazolam 2 MG/2 ML VIAL ONE (13:06)
[2016-12-04] MEDS ORDERED: Bupivacaine HCl 0.25% PF (10 ml) Inj ONE (13:06)
[2016-12-04] MEDS: metOLazone 5 MG TAB PO SCH (13:50)
[2016-12-04] MEDS: Multivitamin Vitamin B Complex (Nephro-Vite) Tab PO SCH (13:50)
[2016-12-04] MEDS: Cefepime IV 1 gm in Dextrose 1 GM/50 ML BAG IVPB SCH (15:39)
--- NOTE | 2016-12-04 19:54 | CP.PCM.PN ---
Subjective - Date & Time of Evaluation Date of Evaluation: 12/04/16 Time of Evaluation: 15:00 - Subjective Subjective: SEEN ON RENAL F/U ALL PREVIOUS EMR REVIEWED C/O LOCAL PAIN RECIEVED HD TODAY RECIEVED 2 U PRBC YESTERDAY Objective - Vital Signs/Intake and Output Vital Signs (last 24 hours): Temp Pulse Resp BP Pulse Ox 98.7 F 66 20 137/88 95 12/04/16 16:00 12/04/16 16:00 12/04/16 16:00 12/04/16 16:00 12/04/16 16:00 - Medications Medications: Current Medications Allopurinol (Zyloprim) 100 mg PO DAILY [facility] Last Admin: 12/04/16 13:50 Dose: Not Given Clindamycin HCl (Cleocin) 300 mg PO Q8H [facility] Clotrimazole (Lotrimin 1%) 0 gm TOP BID [facility] Last Admin: 12/04/16 17:38 Dose: 1 applic Collagenase (Santyl) 30 gm TOP BID [facility] Last Admin: 12/04/16 17:40 Dose: 1 applic Docusate Sodium (Colace) 100 mg PO TID [facility] Last Admin: 12/04/16 17:37 Dose: 100 mg Epoetin Maxwell (Procrit) 10,000 unit IV TTS [facility] Last Admin: 12/04/16 11:07 Dose: 10,000 unit Ergocalciferol (Drisdol 50,000 Intl Units Cap) 1 cap PO QWK [facility] Last Admin: 11/29/16 10:00 Dose: 1 cap Escitalopram Oxalate (Lexapro) 10 mg PO DAILY [facility] Last Admin: 12/04/16 13:49 Dose: Not Given Famotidine (Pepcid) 20 mg PO DAILY [facility] Ferric Sodium Gluconate Complex (Ferrlecit) 125 mg IVPB DAILY [facility] Stop: 12/07/16 10:01 Last Admin: 12/04/16 11:05 Dose: 125 mg Ferrous Sulfate (Feosol) 325 mg PO DAILY [facility] Last Admin: 12/04/16 13:49 Dose: Not Given Furosemide (Lasix) 40 mg IVP DAILY [facility] Last Admin: 12/04/16 13:49 Dose: Not Given Heparin Sodium (Porcine) (Heparin) 5,000 units SC Q12 [facility] Last Admin: 12/04/16 09:58 Dose: Not Given Heparin Sodium (Porcine) (Heparin) 3,000 units IVP TTS [facility] Last Admin: 12/04/16 10:35 Dose: Not Given Heparin Sodium (Porcine) (Heparin) 3,700 units IVP TTS [facility] Last Admin: 12/04/16 11:56 Dose: 3,700 units Hydralazine HCl (Apresoline) 50 mg PO BID [facility] Last Admin: 12/04/16 17:37 Dose: 50 mg Cefepime HCl (Maxipime Iv 1 Gm Premix) 1 gm in 50 mls @ 100 mls/hr IVPB Q24H [facility] Last Admin: 12/04/16 15:39 Dose: Not Given Insulin Glargine (Lantus) 40 unit SC HS [facility] Last Admin: 12/03/16 21:34 Dose: 40 u Insulin Human Regular (Novolin R) 0 unit SC ACHS [facility] PRN Reason: Protocol Last Admin: 12/04/16 17:36 Dose: 2 unit Losartan Potassium (Cozaar) 100 mg PO DAILY [facility] Last Admin: 12/04/16 10:48 Dose: 100 mg Metolazone (Zaroxolyn) 5 mg PO DAILY [facility] Last Admin: 12/04/16 13:50 Dose: Not Given Morphine Sulfate (Morphine) 1 mg IVP Q15M PRN PRN Reason: Pain, moderate (4-7) Mupirocin (Bactroban Ointment) 0 gm TOP BID [facility] Last Admin: 12/04/16 09:58 Dose: Not Given Rosuvastatin Calcium (Crestor) 10 mg PO HS [facility] Last Admin: 12/03/16 21:31 Dose: 10 mg Sevelamer Carbonate (Renvela) 0.8 gm PO TIDCC [facility] Last Admin: 12/04/16 17:37 Dose: 0.8 gm Vitamin B Complex/Vit C/Folic Acid (Nephro-Alonzo) 1 tab PO DAILY [facility] Last Admin: 12/04/16 13:50 Dose: Not Given - Labs Labs: 12/04/16 08:40 12/04/16 08:40 PT 11.9 SECONDS (9.7-12.2) 12/03/16 10:00 INR 1.1 12/03/16 10:00 APTT 34 SECONDS (21-34) 12/03/16 10:00 Assessment and Plan - Assessment and Plan (Free Text) Assessment: ESRD ON HD T T S ANEMIA OF CKD .. S/P 2 U PRBC TRANSFUSION SEPSIS ON IVAB MULTIPLE CO MORBIDITIES P : C/O CURRENT CARE
--- NOTE | 2016-12-04 20:52 | CP.PCM.PN ---
Subjective - Date & Time of Evaluation Date of Evaluation: 12/04/16 Time of Evaluation: 20:52 - Subjective Subjective: AFEBRILE C/O LOCAL PAIN RECIEVED HD TODAY RECIEVED 2 U PRBC YESTERDAY FOR OR TODAY FOR DEBRIDEMENT and PULSE IRRIGATION OF WOUND. WOUND CULTURE 12/03 +VE STAPH -AUREUS. ON IV ABX Objective - Vital Signs/Intake and Output Vital Signs (last 24 hours): Temp Pulse Resp BP Pulse Ox 98.7 F 66 20 137/88 95 12/04/16 16:00 12/04/16 16:00 12/04/16 16:00 12/04/16 16:00 12/04/16 16:00 - Medications Medications: Current Medications Allopurinol (Zyloprim) 100 mg PO DAILY [facility] Last Admin: 12/04/16 13:50 Dose: Not Given Clindamycin HCl (Cleocin) 300 mg PO Q8H [facility] Clotrimazole (Lotrimin 1%) 0 gm TOP BID [facility] Last Admin: 12/04/16 17:38 Dose: 1 applic Collagenase (Santyl) 30 gm TOP BID [facility] Last Admin: 12/04/16 17:40 Dose: 1 applic Docusate Sodium (Colace) 100 mg PO TID [facility] Last Admin: 12/04/16 17:37 Dose: 100 mg Epoetin Maxwell (Procrit) 10,000 unit IV TTS [facility] Last Admin: 12/04/16 11:07 Dose: 10,000 unit Ergocalciferol (Drisdol 50,000 Intl Units Cap) 1 cap PO QWK [facility] Last Admin: 11/29/16 10:00 Dose: 1 cap Escitalopram Oxalate (Lexapro) 10 mg PO DAILY [facility] Last Admin: 12/04/16 13:49 Dose: Not Given Famotidine (Pepcid) 20 mg PO DAILY [facility] Ferric Sodium Gluconate Complex (Ferrlecit) 125 mg IVPB DAILY [facility] Stop: 12/07/16 10:01 Last Admin: 12/04/16 11:05 Dose: 125 mg Ferrous Sulfate (Feosol) 325 mg PO DAILY [facility] Last Admin: 12/04/16 13:49 Dose: Not Given Furosemide (Lasix) 40 mg IVP DAILY [facility] Last Admin: 12/04/16 13:49 Dose: Not Given Heparin Sodium (Porcine) (Heparin) 5,000 units SC Q12 [facility] Last Admin: 12/04/16 09:58 Dose: Not Given Heparin Sodium (Porcine) (Heparin) 3,000 units IVP TTS [facility] Last Admin: 12/04/16 10:35 Dose: Not Given Heparin Sodium (Porcine) (Heparin) 3,700 units IVP TTS [facility] Last Admin: 12/04/16 11:56 Dose: 3,700 units Hydralazine HCl (Apresoline) 50 mg PO BID [facility] Last Admin: 12/04/16 17:37 Dose: 50 mg Cefepime HCl (Maxipime Iv 1 Gm Premix) 1 gm in 50 mls @ 100 mls/hr IVPB Q24H [facility] Last Admin: 12/04/16 15:39 Dose: Not Given Insulin Glargine (Lantus) 40 unit SC HS [facility] Last Admin: 12/03/16 21:34 Dose: 40 u Insulin Human Regular (Novolin R) 0 unit SC ACHS [facility] PRN Reason: Protocol Last Admin: 12/04/16 17:36 Dose: 2 unit Losartan Potassium (Cozaar) 100 mg PO DAILY [facility] Last Admin: 12/04/16 10:48 Dose: 100 mg Metolazone (Zaroxolyn) 5 mg PO DAILY [facility] Last Admin: 12/04/16 13:50 Dose: Not Given Morphine Sulfate (Morphine) 1 mg IVP Q15M PRN PRN Reason: Pain, moderate (4-7) Mupirocin (Bactroban Ointment) 0 gm TOP BID [facility] Last Admin: 12/04/16 09:58 Dose: Not Given Rosuvastatin Calcium (Crestor) 10 mg PO HS [facility] Last Admin: 12/03/16 21:31 Dose: 10 mg Sevelamer Carbonate (Renvela) 0.8 gm PO TIDCC [facility] Last Admin: 12/04/16 17:37 Dose: 0.8 gm Vitamin B Complex/Vit C/Folic Acid (Nephro-Alonzo) 1 tab PO DAILY [facility] Last Admin: 12/04/16 13:50 Dose: Not Given - Labs Labs: 12/04/16 08:40 12/04/16 08:40 PT 11.9 SECONDS (9.7-12.2) 12/03/16 10:00 INR 1.1 12/03/16 10:00 APTT 34 SECONDS (21-34) 12/03/16 10:00 - Constitutional Appears: No Acute Distress - Head Exam Head Exam: NORMAL INSPECTION - Eye Exam Eye Exam: EOMI, Normal appearance - ENT Exam ENT Exam: Mucous Membranes Moist, Normal Oropharynx - Neck Exam Neck Exam: Normal Inspection - Respiratory Exam Respiratory Exam: Clear to Ausculation Bilateral, NORMAL BREATHING PATTERN - GI/Abdominal Exam GI & Abdominal Exam: Soft, Normal Bowel Sounds - Extremities Exam Extremities Exam: Pedal Edema (B/L CELLULITUS LE.). absent: Calf Tenderness Additional comments: LT AVF SITE DRESSING IN PLACE Left hand edema, left av fistual wound draining - Neurological Exam Neurological Exam: Alert, Awake, CN II-XII Intact, Normal Gait - Psychiatric Exam Psychiatric exam: Normal Mood - Skin Skin Exam: Normal Color, Warm Assessment and Plan (1) Wound infection after surgery Assessment & Plan: WOUND CULTURES +VE SERRATIA MARCESCENS/ MSSA -S- CEFEPIME/AND vANCO. REPEAT CULTURES 12/03/16 -STAPH AUREUS CONTINUE ON iv CEFEPIME 1 G EVERY 24 HOURLY. 11/29/16 CONTINUE iv VANCOMYCIN 1 G POST EACH HEMODIALYSIS TTS X 5 DOSES FOR STAPH/ STREPT COVERAGE PATIENT FOR DEBRIDEMENT AND FLUSHING OF THE WOUND PER SURGER TODAY AGAIN. F/U REPEAT CULTURES Status: Acute (2) Cellulitis Status: Acute (3) Foot ulcer Assessment & Plan: PATIENT ALSO HAS A LEFT LATERAL PLANTAR ULCER X 2 MONTHS ULCER 1CM ,DRY ,-VE DRAINAGE. LWC PER PODIATRY. Status: Acute (4) Peripheral vascular disease Status: Acute (5) Anemia, chronic disease Status: Chronic (6) CKD (chronic kidney disease) stage 3, GFR 30-59 ml/min Status: Chronic (7) DM2 (diabetes mellitus, type 2) Status: Chronic
[2016-12-04] MEDS: (Lantus) Insulin Glargine, Recombinant SC SCH (21:52)
[2016-12-05 06:20] LABS: BASO # 0.1 K/uL (0.0-0.2); EOS # 0.4 K/uL (0.0-0.7); EOS % 3.6 % (0.0-4.0); HEMOGLOBIN 10.8 g/dL (11.0-16.0); LYMPH # 1.3 K/uL (1.0-4.3); MEAN CELL VOLUME 97.9 fL (81.0-99.0); MEAN CORPUSCULAR HEMOGLOBIN 30.4 pg (27.0-31.0); MEAN CORPUSCULAR HGB CONC 31.1 g/dL (33.0-37.0); MEAN PLATELET VOLUME 9.8 fL (7.2-11.7); MONO # 1.5 K/uL (0.0-0.8); MONO % 14.9 % (0.0-10.0); NEUT % 67.5 % (50.0-75.0); NRBC % 0.2 % (0.0-2.0); RBC 3.55 Mil/uL (3.80-5.20); RED CELL DISTRIBUTION WIDTH 18.4 % (11.5-14.5); WHITE BLOOD COUNT 10.4 K/uL (4.8-10.8)
[2016-12-05 06:43] LABS: ALB/GLOB RATIO 1.1 (1.0-2.1); ALBUMIN 3.3 g/dL (3.5-5.0); CALCIUM 8.6 mg/dl (8.6-10.4); MAGNESIUM 2.2 mg/dL (1.6-2.3)
[2016-12-05] MEDS: (Novolin R) Insulin Human Regular 100 units/ml vial SC SCH ×4 (08:35→21:18)
[2016-12-05] MEDS: Sevelamer Carb 0.8 gm/Packet PO SCH ×3 (08:37→17:32)
--- NOTE | 2016-12-05 09:12 | CP.PCM.PN ---
<Wanda Marquez - Last Filed: 12/05/16 17:59> Subjective - Date & Time of Evaluation Date of Evaluation: 12/05/16 Time of Evaluation: 07:30 - Subjective Subjective: PGY1- Medicine Note- Dr. Myrick's Service Patient was seen today resting comfortably at bedside in no acute distress. s/p debridement of left arm wound POD#2. Reports pain is same as yesterday in left arm. No longer reports right arm pain. Left foot pain is tolerable and has weight beared for up to 5 min at a time. Has not had a BM in two days. Denies chest pain, palpitations, headache, dizziness, n/v, urinary symptoms. NPO after breakfast for repeat debridement of left arm wound this PM. Objective - Vital Signs/Intake and Output Vital Signs (last 24 hours): Temp Pulse Resp BP Pulse Ox 98.3 F 74 20 180/64 H 96 12/05/16 07:42 12/05/16 07:42 12/05/16 07:42 12/05/16 07:42 12/05/16 07:42 Intake and Output: 12/05/16 12/05/16 06:59 18:59 Intake Total 120 Balance 120 - Medications Medications: Current Medications Allopurinol (Zyloprim) 100 mg PO DAILY [facility] Last Admin: 12/04/16 13:50 Dose: Not Given Clindamycin HCl (Cleocin) 300 mg PO Q8H [facility] Last Admin: 12/05/16 03:31 Dose: 300 mg Clotrimazole (Lotrimin 1%) 0 gm TOP BID [facility] Last Admin: 12/04/16 17:38 Dose: 1 applic Collagenase (Santyl) 30 gm TOP BID [facility] Last Admin: 12/04/16 17:40 Dose: 1 applic Docusate Sodium (Colace) 100 mg PO TID [facility] Last Admin: 12/04/16 17:37 Dose: 100 mg Epoetin Maxwell (Procrit) 10,000 unit IV TTS [facility] Last Admin: 12/04/16 11:07 Dose: 10,000 unit Ergocalciferol (Drisdol 50,000 Intl Units Cap) 1 cap PO QWK [facility] Last Admin: 11/29/16 10:00 Dose: 1 cap Escitalopram Oxalate (Lexapro) 10 mg PO DAILY [facility] Last Admin: 12/04/16 13:49 Dose: Not Given Famotidine (Pepcid) 20 mg PO DAILY [facility] Ferric Sodium Gluconate Complex (Ferrlecit) 125 mg IVPB DAILY [facility] Stop: 12/07/16 10:01 Last Admin: 12/04/16 11:05 Dose: 125 mg Ferrous Sulfate (Feosol) 325 mg PO DAILY [facility] Last Admin: 12/04/16 13:49 Dose: Not Given Furosemide (Lasix) 40 mg IVP DAILY [facility] Last Admin: 12/04/16 13:49 Dose: Not Given Heparin Sodium (Porcine) (Heparin) 5,000 units SC Q12 [facility] Last Admin: 12/04/16 21:50 Dose: 5,000 units Heparin Sodium (Porcine) (Heparin) 3,000 units IVP TTS [facility] Last Admin: 12/04/16 10:35 Dose: Not Given Heparin Sodium (Porcine) (Heparin) 3,700 units IVP TTS [facility] Last Admin: 12/04/16 11:56 Dose: 3,700 units Hydralazine HCl (Apresoline) 50 mg PO BID [facility] Last Admin: 12/04/16 17:37 Dose: 50 mg Cefepime HCl (Maxipime Iv 1 Gm Premix) 1 gm in 50 mls @ 100 mls/hr IVPB Q24H [facility] Last Admin: 12/04/16 15:39 Dose: Not Given Insulin Glargine (Lantus) 40 unit SC HS [facility] Last Admin: 12/04/16 21:52 Dose: 40 u Insulin Human Regular (Novolin R) 0 unit SC ACHS [facility] PRN Reason: Protocol Last Admin: 12/05/16 08:35 Dose: 6 unit Losartan Potassium (Cozaar) 100 mg PO DAILY [facility] Last Admin: 12/04/16 10:48 Dose: 100 mg Metolazone (Zaroxolyn) 5 mg PO DAILY [facility] Last Admin: 12/04/16 13:50 Dose: Not Given Morphine Sulfate (Morphine) 1 mg IVP Q15M PRN PRN Reason: Pain, moderate (4-7) Mupirocin (Bactroban Ointment) 0 gm TOP BID [facility] Last Admin: 12/04/16 18:00 Dose: 1 applic Rosuvastatin Calcium (Crestor) 10 mg PO HS [facility] Last Admin: 12/04/16 21:50 Dose: 10 mg Sevelamer Carbonate (Renvela) 0.8 gm PO TIDCC [facility] Last Admin: 12/05/16 08:37 Dose: Not Given Vitamin B Complex/Vit C/Folic Acid (Nephro-Alonzo) 1 tab PO DAILY [facility] Last Admin: 12/04/16 13:50 Dose: Not Given - Labs Labs: 12/05/16 06:16 12/05/16 06:16 PT 11.9 SECONDS (9.7-12.2) 12/03/16 10:00 INR 1.1 12/03/16 10:00 APTT 34 SECONDS (21-34) 12/03/16 10:00 - Constitutional Appears: Non-toxic, No Acute Distress - Head Exam Head Exam: ATRAUMATIC, NORMAL INSPECTION, NORMOCEPHALIC - Eye Exam Eye Exam: EOMI, Normal appearance, PERRL - ENT Exam ENT Exam: Mucous Membranes Moist, Normal Exam - Neck Exam Neck Exam: Full ROM, Normal Inspection. absent: Lymphadenopathy - Respiratory Exam Respiratory Exam: Clear to Ausculation Bilateral, NORMAL BREATHING PATTERN. absent: Rales, Rhonchi, Wheezes, Stridor - Cardiovascular Exam Cardiovascular Exam: REGULAR RHYTHM, RRR. absent: Gallop, Murmur - GI/Abdominal Exam GI & Abdominal Exam: Soft, Normal Bowel Sounds. absent: Guarding, Rigid, Tenderness - Extremities Exam Extremities Exam: Full ROM, Pedal Edema, Tenderness Additional comments: b/l lower extremity edema and tenderness left arm incision wrapped left foot ulcer wrapped - Back Exam Back Exam: NORMAL INSPECTION - Neurological Exam Neurological Exam: Alert, Awake, Oriented x3 - Psychiatric Exam Psychiatric exam: Normal Affect, Normal Mood - Skin Skin Exam: Warm. absent: Intact Additional comments: b/l lower extremities edematous and erythematous left hand less edema left arm covered in dressing left foot ulcer covered in dressing right portacath in place Assessment and Plan - Assessment and Plan (Free Text) Assessment: (1) Wound infection after surgery Assessment and Plan: 12/05:PICC line placed by Dr. Roman (IR) and debridement with Dr. Melendez 12/03: patient went for surgery today with Dr. Melendze for left arm wound debridement Maxipime 1 gm stopped on 12/05 Cipro 200 mg IV q 12 started on 12/05 due to sensitivity Vanco stopped 12/04, clindamycin 300 mg po q8 stopped on 12/05 because bacteria resistant Temp 98.9 WBC dropping 12.1--11.9--11.4 on 12/01 12/02 f/u L upper extremity doppler left arm wound culture prelim- staph aureus ID consulted, Niki Medina and Zoruben recommended vanc/zosyn given in ED blood culture negative Status: Acute (2) Left heel ulcer Assessment and Plan: Podiatry consult, Dr. Stevens, help appreciated 12/05: seen by podiatry with no updates 12/02 podiatry cleaned wound and dressed with Santyl, 4X4 gauze and kerlix and recommonds cont. wearing offloading boots while in bed 11/29 foot wound: Hyperkaratotic tissue debrided from periwound area with #15 blade without incident and wound cleansed with normal saline (2) CKD (chronic kidney disease) stage 3, GFR 30-59 ml/min Assessment and Plan: 12/04: HD today HD on 11/29 via permacath con't home med: sevelamer 0.8g TIDCC Status: Chronic (3) Lower Extremity Edema 11/29 LE dopplers: negative r/o obstruction-- 12/02: abdominal u/s: diffuse fatty infiltration of the liver. minimal hepatomegaly. bilateral renal hyperechogenicity-medical renal disease inferred, 5mm midpole nonobstructing right renal calculus-unchanged 12/02: pelvic u/s: markedly limited exam- no distended bladder to provide for sonographic window to visualize pelvic anatomy (4) Anemia, chronic disease Assessment and Plan: 12/04: Hgb 10.2 12/03: Patient transfused 2 units PRBCs overnight, HgB increased to 9 Hg 7.3 on 12/02, if continues to be low may need transfusion with next dialysis treatment Patient has been typed and screened ferrous sulfate 325mg po daily ferrlecit 125 mg daily Status: Chronic (5) Hypertension Assessment and Plan: con't home med: hydralazine 50mg po bid losartan 100mg po daily Status: Chronic (6) Diabetes Assessment and Plan: accuchecks ISS Lantus 55 u sc daily (changed from 40 on 12/05) rosuvastatin 10mg po hs Status: Acute (7) Constipation Assessment and Plan: patient has had multiple bms continue colace 100 mg po TID (7) Prophylactic measure Assessment and Plan: SCDs heparin 5000u sc q12 pepcid 20mg daily (renally dosed) renal diet Status: Acute <Benson Myrick Jr. - Last Filed: 12/06/16 10:29> Objective - Vital Signs/Intake and Output Vital Signs (last 24 hours): Temp Pulse Resp BP Pulse Ox 98.3 F 67 16 159/60 H 160 H 12/06/16 09:05 12/06/16 09:05 12/06/16 09:05 12/06/16 10:05 12/06/16 09:05 Intake and Output: 12/06/16 12/06/16 06:59 18:59 Intake Total 340 Balance 340 - Medications Medications: Current Medications Allopurinol (Zyloprim) 100 mg PO DAILY [facility] Last Admin: 12/06/16 09:34 Dose: Not Given Clotrimazole (Lotrimin 1%) 0 gm TOP BID [facility] Last Admin: 12/05/16 21:15 Dose: 1 applic Collagenase (Santyl) 30 gm TOP BID [facility] Last Admin: 12/06/16 09:34 Dose: Not Given Docusate Sodium (Colace) 100 mg PO TID [facility] Last Admin: 12/06/16 09:33 Dose: Not Given Epoetin Maxwell (Procrit) 10,000 unit IV TTS [facility] Last Admin: 12/06/16 09:25 Dose: 10,000 unit Ergocalciferol (Drisdol 50,000 Intl Units Cap) 1 cap PO QWK [facility] Last Admin: 11/29/16 10:00 Dose: 1 cap Escitalopram Oxalate (Lexapro) 10 mg PO DAILY [facility] Last Admin: 12/06/16 09:33 Dose: Not Given Famotidine (Pepcid) 20 mg PO DAILY [facility] Last Admin: 12/06/16 09:34 Dose: Not Given Ferric Sodium Gluconate Complex (Ferrlecit) 125 mg IVPB DAILY [facility] Stop: 12/07/16 10:01 Last Admin: 12/05/16 14:33 Dose: 125 mg Ferrous Sulfate (Feosol) 325 mg PO DAILY [facility] Last Admin: 12/06/16 09:33 Dose: Not Given Furosemide (Lasix) 40 mg IVP DAILY [facility] Last Admin: 12/06/16 09:33 Dose: Not Given Heparin Sodium (Porcine) (Heparin) 5,000 units SC Q12 [facility] Last Admin: 12/06/16 09:33 Dose: Not Given Heparin Sodium (Porcine) (Heparin) 3,000 units IVP TTS [facility] Last Admin: 12/06/16 09:25 Dose: 3,000 units Heparin Sodium (Porcine) (Heparin) 3,700 units IVP TTS [facility] Last Admin: 12/04/16 11:56 Dose: 3,700 units Hydralazine HCl (Apresoline) 50 mg PO BID [facility] Last Admin: 12/06/16 09:32 Dose: Not Given Ciprofloxacin (Cipro 200mg/100ml D5w) 100 mls @ 100 mls/hr IVPB Q12H [facility] Last Admin: 12/06/16 06:06 Dose: 100 mls/hr Insulin Glargine (Lantus) 55 unit SC HS [facility] Last Admin: 12/05/16 21:16 Dose: 55 u Insulin Human Regular (Novolin R) 0 unit SC ACHS [facility] PRN Reason: Protocol Last Admin: 12/06/16 07:44 Dose: Not Given Losartan Potassium (Cozaar) 100 mg PO DAILY [facility] Last Admin: 12/06/16 09:33 Dose: Not Given Metolazone (Zaroxolyn) 5 mg PO DAILY [facility] Last Admin: 12/06/16 09:34 Dose: Not Given Morphine Sulfate (Morphine) 1 mg IVP Q15M PRN PRN Reason: Pain, moderate (4-7) Last Admin: 12/06/16 09:28 Dose: 1 mg Mupirocin (Bactroban Ointment) 0 gm TOP BID [facility] Last Admin: 12/06/16 09:32 Dose: Not Given Polyethylene Glycol (Miralax) 17 gm PO DAILY [facility] Last Admin: 12/06/16 09:34 Dose: Not Given Rosuvastatin Calcium (Crestor) 10 mg PO HS [facility] Last Admin: 12/05/16 21:22 Dose: 10 mg Sevelamer Carbonate (Renvela) 0.8 gm PO TIDCC [facility] Last Admin: 12/06/16 07:56 Dose: 0.8 gm Vitamin B Complex/Vit C/Folic Acid (Nephro-Alonzo) 1 tab PO DAILY [facility] Last Admin: 12/06/16 09:34 Dose: Not Given - Labs Labs: 12/06/16 07:11 12/06/16 07:11 PT 11.9 SECONDS (9.7-12.2) 12/03/16 10:00 INR 1.1 12/03/16 10:00 APTT 34 SECONDS (21-34) 12/03/16 10:00 Attending/Attestation - Attestation I have personally seen and examined this patient.: Yes I have fully participated in the care of the patient.: Yes I have reviewed all pertinent clinical information, including history, physical exam and plan: Yes Notes (Text): 12/06/16 10:29 Agree with resident note and findings
--- NOTE | 2016-12-05 10:03 | PCM.SURG1 ---
Surgeon's Initial Post Op Note - Surgeon's Notes Surgeon: Rogers Roman MD Environmental Sustainability Manager: None Type of Anesthesia: Local Pre-Operative Diagnosis: Poor venous access Operative Findings: Patent right basilic vein Post-Operative Diagnosis: Poor venous access Operation Performed: Single lumen picc placement right basilic vein, 35 cm. Tip in SVC. Specimen/Specimens Removed: None Estimated Blood Loss: EBL {In ML}: 2 Blood Products Given: N/A Drains Used: No Drains Post-Op Condition: Fair Date of Surgery/Procedure: 12/05/16 Time of Surgery/Procedure: 10:00
--- NOTE | 2016-12-05 11:39 | RAD ---
PROCEDURE: Intraoperative fluoroscopy HISTORY: POOR VENOUS ACCESS COMPARISON: Not available TECHNIQUE: Intraoperative fluoroscopy was provided for PICC catheter insertion. Total time of fluoroscopy was 2.8 seconds. FINDINGS: Two fluoroscopic spot films are submitted. Films are on file for review. IMPRESSION: Fluoroscopy provided.
[2016-12-05] MEDS: Multivitamin Vitamin B Complex (Nephro-Vite) Tab PO SCH (12:10)
[2016-12-05] MEDS: metOLazone 5 MG TAB PO SCH (12:10)
[2016-12-05] MEDS: Collagenase 250 Units/gm Ointment(30 gm) TOP SCH ×2 (12:18→21:15)
[2016-12-05] MEDS: Clotrimazole 1% Cream(30 gm) TOP SCH ×2 (12:19→21:15)
[2016-12-05] MEDS: Cefepime IV 1 gm in Dextrose 1 GM/50 ML BAG IVPB SCH (12:20)
--- NOTE | 2016-12-05 12:44 | OP ---
PROCEDURE DATE: 12/04/2016 PREOPERATIVE DIAGNOSIS: Skin necrosis and abscess of the left arm and elbow. POSTOPERATIVE DIAGNOSIS: Skin necrosis and abscess of the left arm and elbow. PROCEDURE: 1. Debridement of left arm wounds with re-drainage of abscess. 2. Repair of brachial blood vessel. 3. Partial tissue transfer closure. SURGEON: Dr. Melendez. ANESTHESIA: General. ESTIMATED BLOOD LOSS: 25 mL. POSTOPERATIVE: Stable. INDICATIONS FOR SURGERY: This is a 71-year-old female who underwent a left arm basilic vein transposition approximately 3 to 4 week ago. She represented with the wound infection in the arm secondary to extensive skin necrosis distally. She was taken to the OR yesterday for initial debridement and taken back today for change of packing under anesthesia and the wound is very close to the left arm anastomosis. DESCRIPTION OF PROCEDURE: The patient is placed in the supine position with a left arm extended. Local anesthesia was infiltrated and the wounds were again aggressively debrided down to good bleeding tissue. Bleeding was controlled using the Bovie and exposed brachial vein was repaired. The wound was pulse irrigated with saline solution. Partial tissue transfer closure was preformed in the brachial wound overlying the anastomosis. The center portion was packed open with saline gauze as are the other open wounds. The patient tolerated the procedure well and return to recovery room in stable condition. Sergio Melendez MD
[2016-12-05] MEDS ORDERED: Bupivacaine HCl 0.25% PF (10 ml) Inj ONE (13:00)
[2016-12-05] MEDS ORDERED: Lidocaine 1% Inj (20ml) ONE (13:00)
[2016-12-05] MEDS: Lidocaine 1% Inj (20ml) ONE (13:11)
--- NOTE | 2016-12-05 13:59 | CP.PCM.PN ---
Subjective - Date & Time of Evaluation Date of Evaluation: 12/05/16 Time of Evaluation: 13:59 - Subjective Subjective: afebrile c/o PAIN LEFT ARM. S/P DEBRIDEMENT WOUND LEFT ARM AV FISTULA : POD 2. S/P SINGLE-LUMEN RIGHT BASILIC VEIN picc LINE..12/05/16 RESTING COMFORTABLE. WOUND C/S 12/03 - MSSA. ON IV VANCOMYCIN 1GM IVPB POST HD TTS ON IV CCGYCPPH1MG OD DAILY Objective - Vital Signs/Intake and Output Vital Signs (last 24 hours): Temp Pulse Resp BP Pulse Ox 98.3 F 74 20 180/64 H 96 12/05/16 07:42 12/05/16 07:42 12/05/16 07:42 12/05/16 12:16 12/05/16 07:42 Intake and Output: 12/05/16 12/05/16 06:59 18:59 Intake Total 120 Balance 120 - Medications Medications: Current Medications Allopurinol (Zyloprim) 100 mg PO DAILY [facility] Last Admin: 12/05/16 12:10 Dose: 100 mg Clindamycin HCl (Cleocin) 300 mg PO Q8H [facility] Last Admin: 12/05/16 03:31 Dose: 300 mg Clotrimazole (Lotrimin 1%) 0 gm TOP BID [facility] Last Admin: 12/05/16 12:19 Dose: 1 applic Collagenase (Santyl) 30 gm TOP BID [facility] Last Admin: 12/05/16 12:18 Dose: Not Given Docusate Sodium (Colace) 100 mg PO TID [facility] Last Admin: 12/05/16 13:37 Dose: Not Given Epoetin Maxwell (Procrit) 10,000 unit IV TTS [facility] Last Admin: 12/04/16 11:07 Dose: 10,000 unit Ergocalciferol (Drisdol 50,000 Intl Units Cap) 1 cap PO QWK [facility] Last Admin: 11/29/16 10:00 Dose: 1 cap Escitalopram Oxalate (Lexapro) 10 mg PO DAILY [facility] Last Admin: 12/05/16 12:09 Dose: 10 mg Famotidine (Pepcid) 20 mg PO DAILY [facility] Last Admin: 12/05/16 12:10 Dose: 20 mg Ferric Sodium Gluconate Complex (Ferrlecit) 125 mg IVPB DAILY [facility] Stop: 12/07/16 10:01 Last Admin: 12/04/16 11:05 Dose: 125 mg Ferrous Sulfate (Feosol) 325 mg PO DAILY [facility] Last Admin: 12/05/16 12:17 Dose: 325 mg Furosemide (Lasix) 40 mg IVP DAILY [facility] Last Admin: 12/05/16 12:16 Dose: 40 mg Heparin Sodium (Porcine) (Heparin) 5,000 units SC Q12 [facility] Last Admin: 12/05/16 12:16 Dose: Not Given Heparin Sodium (Porcine) (Heparin) 3,000 units IVP TTS [facility] Last Admin: 12/04/16 10:35 Dose: Not Given Heparin Sodium (Porcine) (Heparin) 3,700 units IVP TTS [facility] Last Admin: 12/04/16 11:56 Dose: 3,700 units Hydralazine HCl (Apresoline) 50 mg PO BID [facility] Last Admin: 12/05/16 12:09 Dose: 50 mg Cefepime HCl (Maxipime Iv 1 Gm Premix) 1 gm in 50 mls @ 100 mls/hr IVPB Q24H [facility] Last Admin: 12/05/16 12:20 Dose: 100 mls/hr Insulin Glargine (Lantus) 40 unit SC [facility] Last Admin: 12/04/16 21:52 Dose: 40 u Insulin Human Regular (Novolin R) 0 unit SC ACHS [facility] PRN Reason: Protocol Last Admin: 12/05/16 12:11 Dose: Not Given Losartan Potassium (Cozaar) 100 mg PO DAILY [facility] Last Admin: 12/05/16 12:10 Dose: 100 mg Metolazone (Zaroxolyn) 5 mg PO DAILY [facility] Last Admin: 12/05/16 12:10 Dose: 5 mg Morphine Sulfate (Morphine) 1 mg IVP Q15M PRN PRN Reason: Pain, moderate (4-7) Mupirocin (Bactroban Ointment) 0 gm TOP BID [facility] Last Admin: 12/05/16 12:15 Dose: Not Given Rosuvastatin Calcium (Crestor) 10 mg PO HS [facility] Last Admin: 12/04/16 21:50 Dose: 10 mg Sevelamer Carbonate (Renvela) 0.8 gm PO TIDCC [facility] Last Admin: 12/05/16 12:19 Dose: Not Given Vitamin B Complex/Vit C/Folic Acid (Nephro-Alonzo) 1 tab PO DAILY [facility] Last Admin: 12/05/16 12:10 Dose: 1 tab - Labs Labs: 12/05/16 06:16 12/05/16 06:16 PT 11.9 SECONDS (9.7-12.2) 12/03/16 10:00 INR 1.1 12/03/16 10:00 APTT 34 SECONDS (21-34) 12/03/16 10:00 - Constitutional Appears: No Acute Distress - Head Exam Head Exam: NORMAL INSPECTION - Eye Exam Eye Exam: EOMI, PERRL - ENT Exam ENT Exam: Normal Oropharynx - Neck Exam Neck Exam: Normal Inspection - Respiratory Exam Respiratory Exam: Clear to Ausculation Bilateral, NORMAL BREATHING PATTERN - Cardiovascular Exam Cardiovascular Exam: REGULAR RHYTHM, +S1, +S2 - GI/Abdominal Exam GI & Abdominal Exam: Soft, Normal Bowel Sounds. absent: Organomegaly - Extremities Exam Extremities Exam: Pedal Edema (B/L CELLULITIS ANT SHINS LE.). absent: Calf Tenderness Additional comments: LT AVF SITE DRESSING IN PLACE Left hand edema, left av fistual wound draining - Neurological Exam Neurological Exam: Awake, CN II-XII Intact, Oriented x3, Reflexes Normal - Psychiatric Exam Psychiatric exam: Normal Mood - Skin Skin Exam: Normal Color, Warm Assessment and Plan (1) Wound infection after surgery Assessment & Plan: WOUND CULTURES +VE SERRATIA MARCESCENS/ MSSA -S- CEFEPIME/AND vANCO. REPEAT CULTURES 12/03/16 -STAPH AUREUS (MSSA ) CONTINUE ON iv CEFEPIME 1 G EVERY 24 HOURLY. 11/29/16 CONTINUE iv VANCOMYCIN 1 G POST EACH HEMODIALYSIS TTS X 5 DOSES FOR STAPH/ STREPT COVERAGE LWC PER DR COYLE. Status: Acute (2) Cellulitis Status: Acute (3) Foot ulcer Assessment & Plan: PATIENT ALSO HAS A LEFT LATERAL PLANTAR ULCER X 2 MONTHS ULCER 1CM ,DRY ,-VE DRAINAGE. LWC PER PODIATRY. Status: Acute (4) Peripheral vascular disease Status: Acute (5) Anemia, chronic disease Status: Chronic (6) CKD (chronic kidney disease) stage 3, GFR 30-59 ml/min Status: Chronic (7) DM2 (diabetes mellitus, type 2) Status: Chronic
[2016-12-05] MEDS: Ferric Sodium Gluconat Complex 62.5 mg/5 ml Vial IVPB SCH (14:33)
--- NOTE | 2016-12-05 16:40 | CP.PCM.PN ---
Subjective - Date & Time of Evaluation Date of Evaluation: 12/05/16 Time of Evaluation: 16:39 - Subjective Subjective: 71 y/o female seen at bedside for left foot lateral and plantar ulcer. Pt is AAOx3 and is in NAD. Pt denies of any acute overnight events. Pt denies of any pain to the site. Patient denies any recent F/N/V/C/SOB. Patient denies any further pedal complaints at this time. Objective - Vital Signs/Intake and Output Vital Signs (last 24 hours): Temp Pulse Resp BP Pulse Ox 98.2 F 70 20 146/55 L 96 12/05/16 15:00 12/05/16 15:00 12/05/16 15:00 12/05/16 15:00 12/05/16 15:00 Intake and Output: 12/05/16 12/05/16 06:59 18:59 Intake Total 120 Balance 120 - Medications Medications: Current Medications Allopurinol (Zyloprim) [address] [facility] Last Admin: 12/05/16 12:10 Dose: 100 mg Clindamycin HCl (Cleocin) [address] [facility] Last Admin: 12/05/16 12:35 Dose: 300 mg Clotrimazole (Lotrimin 1%) [address] [facility] Last Admin: 12/05/16 12:19 Dose: 1 applic Collagenase (Santyl) [address] [facility] Last Admin: 12/05/16 12:18 Dose: Not Given Docusate Sodium (Colace) [address] [facility] Last Admin: 12/05/16 13:37 Dose: Not Given Epoetin Maxwell (Procrit) 10,[address] [facility] Last Admin: 12/04/16 11:07 Dose: 10,000 unit Ergocalciferol (Drisdol 50,000 Intl Units Cap) [address] [facility] Last Admin: 11/29/16 10:00 Dose: 1 cap Escitalopram Oxalate (Lexapro) [address] [facility] Last Admin: 12/05/16 12:09 Dose: 10 mg Famotidine (Pepcid) [address] [facility] Last Admin: 12/05/16 12:10 Dose: 20 mg Ferric Sodium Gluconate Complex (Ferrlecit) [address] [facility] Stop: 12/07/16 10:01 Last Admin: 12/05/16 14:33 Dose: 125 mg Ferrous Sulfate (Feosol) [address] [facility] Last Admin: 12/05/16 12:17 Dose: 325 mg Furosemide (Lasix) [address] [facility] Last Admin: 12/05/16 12:16 Dose: 40 mg Heparin Sodium (Porcine) (Heparin) 5,[address] [facility] Last Admin: 12/05/16 12:16 Dose: Not Given Heparin Sodium (Porcine) (Heparin) 3,[address] [facility] Last Admin: 12/04/16 10:35 Dose: Not Given Heparin Sodium (Porcine) (Heparin) 3,[address] [facility] Last Admin: 12/04/16 11:56 Dose: 3,700 units Hydralazine HCl (Apresoline) [address] [facility] Last Admin: 12/05/16 12:09 Dose: 50 mg Cefepime HCl (Maxipime Iv 1 Gm Premix) 1 gm in 50 mls @ 100 mls/hr IVPB Q24H [facility] Last Admin: 12/05/16 12:20 Dose: 100 mls/hr Insulin Glargine (Lantus) [address] [facility] Last Admin: 12/04/16 21:52 Dose: 40 u Insulin Human Regular (Novolin R) [address] [facility] PRN Reason: Protocol Last Admin: 12/05/16 12:11 Dose: Not Given Losartan Potassium (Cozaar) [address] [facility] Last Admin: 12/05/16 12:10 Dose: 100 mg Metolazone (Zaroxolyn) [address] [facility] Last Admin: 12/05/16 12:10 Dose: 5 mg Morphine Sulfate (Morphine) 1 mg IVP Q15M PRN PRN Reason: Pain, moderate (4-7) Mupirocin (Bactroban Ointment) [address] [facility] Last Admin: 12/05/16 12:15 Dose: Not Given Rosuvastatin Calcium (Crestor) [address] [facility] Last Admin: 12/04/16 21:50 Dose: 10 mg Sevelamer Carbonate (Renvela) 0.[address] [facility] Last Admin: 12/05/16 12:19 Dose: Not Given Vitamin B Complex/Vit C/Folic Acid (Nephro-Alonzo) [address] [facility] Last Admin: 12/05/16 12:10 Dose: 1 tab - Labs Labs: 12/05/16 06:16 12/05/16 06:16 PT 11.9 SECONDS (9.7-12.2) 12/03/16 10:00 INR 1.1 12/03/16 10:00 APTT 34 SECONDS (21-34) 12/03/16 10:00 - Constitutional Appears: Well, Non-toxic, No Acute Distress - Extremities Exam Additional comments: VASC: DP/PT pulses palpable 1/4 b/l. CFT < 3 seconds to all digits, temperature gradient is warm to cool. Moderate pitting edema noted to b/l lower extremities DERM: Velazco stage 1 ulceration seen at lateral and plantar heel on left foot. No purulent drainage, malodor, undermining, tracking, periwound erythema or other clinical signs of infection noted to the area. Hyperkeratotic periwound area noted with mild maceration seen at plantar aspect of wound. Erythematous skin changes noted to anterior shins b/l (possible hemosiderin deposition). No other open lesions noted at this time. NEURO: Epicritic and protective sensation grossly intact b/l ORTHO: Mild pain on palpation noted to ulcer site of left foot - Neurological Exam Neurological Exam: Alert, Awake, Oriented x3 - Psychiatric Exam Psychiatric exam: Normal Affect, Normal Mood Assessment and Plan - Assessment and Plan (Free Text) Assessment: 71 year old female seen at bedside with left foot ulcer secondary to DM, ESRD, CHF and CKD Plan: Pt evaluated and chart reviewd Pt discussed in details with attending Dr. Molina Labs and vitals reviewed (afebrile), WBC 10.4 CUCO/PVR 10/22/16: left: .35, right .98 left foot heel ulcer dressed with Santyl, 4x4 gauze and kerlix cont. wearing offloading boots while in bed Continue with abx per ID Podiatry will continue to follow while in house
[2016-12-05] MEDS ORDERED: Ciprofloxacin 400mg/200ml D5W 400 MG/200 ML BAG IVPB SCH (18:00)
--- NOTE | 2016-12-05 18:54 | CP.PCM.PN ---
Subjective - Date & Time of Evaluation Date of Evaluation: 12/05/16 Time of Evaluation: 14:00 - Subjective Subjective: seen on renal f/u on hs tts s/p debridenment ofl arm avf c/o local pain Objective - Vital Signs/Intake and Output Vital Signs (last 24 hours): Temp Pulse Resp BP Pulse Ox 98.2 F 70 20 146/55 L 96 12/05/16 15:00 12/05/16 15:00 12/05/16 15:00 12/05/16 15:00 12/05/16 15:00 Intake and Output: 12/05/16 12/05/16 06:59 18:59 Intake Total 120 350 Balance 120 350 - Medications Medications: Current Medications Allopurinol (Zyloprim) 100 mg PO DAILY [facility] Last Admin: 12/05/16 12:10 Dose: 100 mg Clotrimazole (Lotrimin 1%) 0 gm TOP BID [facility] Last Admin: 12/05/16 12:19 Dose: 1 applic Collagenase (Santyl) 30 gm TOP BID [facility] Last Admin: 12/05/16 12:18 Dose: Not Given Docusate Sodium (Colace) 100 mg PO TID [facility] Last Admin: 12/05/16 17:32 Dose: 100 mg Epoetin Maxwell (Procrit) 10,000 unit IV TTS [facility] Last Admin: 12/04/16 11:07 Dose: 10,000 unit Ergocalciferol (Drisdol 50,000 Intl Units Cap) 1 cap PO QWK [facility] Last Admin: 11/29/16 10:00 Dose: 1 cap Escitalopram Oxalate (Lexapro) 10 mg PO DAILY [facility] Last Admin: 12/05/16 12:09 Dose: 10 mg Famotidine (Pepcid) 20 mg PO DAILY [facility] Last Admin: 12/05/16 12:10 Dose: 20 mg Ferric Sodium Gluconate Complex (Ferrlecit) 125 mg IVPB DAILY [facility] Stop: 12/07/16 10:01 Last Admin: 12/05/16 14:33 Dose: 125 mg Ferrous Sulfate (Feosol) 325 mg PO DAILY [facility] Last Admin: 12/05/16 12:17 Dose: 325 mg Furosemide (Lasix) 40 mg IVP DAILY [facility] Last Admin: 12/05/16 12:16 Dose: 40 mg Heparin Sodium (Porcine) (Heparin) 5,000 units SC Q12 [facility] Last Admin: 12/05/16 12:16 Dose: Not Given Heparin Sodium (Porcine) (Heparin) 3,000 units IVP TTS [facility] Last Admin: 12/04/16 10:35 Dose: Not Given Heparin Sodium (Porcine) (Heparin) 3,700 units IVP TTS [facility] Last Admin: 12/04/16 11:56 Dose: 3,700 units Hydralazine HCl (Apresoline) 50 mg PO BID [facility] Last Admin: 12/05/16 17:32 Dose: 50 mg Ciprofloxacin (Cipro 200mg/100ml D5w) 100 mls @ 100 mls/hr IVPB Q12H [facility] Insulin Glargine (Lantus) 55 unit SC HS [facility] Insulin Human Regular (Novolin R) 0 unit SC ACHS [facility] PRN Reason: Protocol Last Admin: 12/05/16 17:35 Dose: 8 unit Losartan Potassium (Cozaar) 100 mg PO DAILY [facility] Last Admin: 12/05/16 12:10 Dose: 100 mg Metolazone (Zaroxolyn) 5 mg PO DAILY [facility] Last Admin: 12/05/16 12:10 Dose: 5 mg Morphine Sulfate (Morphine) 1 mg IVP Q15M PRN PRN Reason: Pain, moderate (4-7) Mupirocin (Bactroban Ointment) 0 gm TOP BID [facility] Last Admin: 12/05/16 12:15 Dose: Not Given Polyethylene Glycol (Miralax) 17 gm PO DAILY [facility] Rosuvastatin Calcium (Crestor) 10 mg PO HS [facility] Last Admin: 12/04/16 21:50 Dose: 10 mg Sevelamer Carbonate (Renvela) 0.8 gm PO TIDCC [facility] Last Admin: 12/05/16 17:32 Dose: 0.8 gm Vitamin B Complex/Vit C/Folic Acid (Nephro-Alonzo) 1 tab PO DAILY [facility] Last Admin: 12/05/16 12:10 Dose: 1 tab - Labs Labs: 12/05/16 06:16 12/05/16 06:16 PT 11.9 SECONDS (9.7-12.2) 12/03/16 10:00 INR 1.1 12/03/16 10:00 APTT 34 SECONDS (21-34) 12/03/16 10:00 Assessment and Plan - Assessment and Plan (Free Text) Assessment: esrd on hd t t s .. to be c/o anemia of ckd .. recieved 2 u prbc sepsis on ivab p : c/o current care
[2016-12-05] MEDS ORDERED: POLYETHYLENE GLYCOL 3350 17 GM/Dose PACKET PO STA (19:14)
[2016-12-05] MEDS: Ciprofloxacin 200mg/100ml D5W 100 ML IVPB SCH (20:00)
[2016-12-05] MEDS: (Lantus) Insulin Glargine, Recombinant SC SCH (21:16)
[2016-12-06] MEDS: Ciprofloxacin 200mg/100ml D5W 100 ML IVPB SCH ×2 (06:06→18:17)
[2016-12-06 07:24] LABS: ALBUMIN 3.3 g/dL (3.5-5.0)
[2016-12-06 07:26] LABS: BASO # 0.1 K/uL (0.0-0.2); BASO % 0.9 % (0.0-2.0); EOS # 0.6 K/uL (0.0-0.7); HEMOGLOBIN 9.9 g/dL (11.0-16.0); LYMPH # 1.8 K/uL (1.0-4.3); LYMPH % 15.1 % (20.0-40.0); MEAN CORPUSCULAR HEMOGLOBIN 30.1 pg (27.0-31.0); MEAN CORPUSCULAR HGB CONC 31.3 g/dL (33.0-37.0); MEAN PLATELET VOLUME 10.2 fL (7.2-11.7); MONO # 1.4 K/uL (0.0-0.8); MONO % 12.2 % (0.0-10.0); NEUT # 7.8 K/uL (1.8-7.0); NEUT % 66.8 % (50.0-75.0); NRBC % 0.2 % (0.0-2.0); RBC 3.3 Mil/uL (3.80-5.20); RED CELL DISTRIBUTION WIDTH 18.7 % (11.5-14.5); WHITE BLOOD COUNT 11.6 K/uL (4.8-10.8)
[2016-12-06 07:28] LABS: ALB/GLOB RATIO 1.2 (1.0-2.1); MAGNESIUM 2.3 mg/dL (1.6-2.3)
[2016-12-06] MEDS: (Novolin R) Insulin Human Regular 100 units/ml vial SC SCH ×4 (07:44→21:31)
[2016-12-06] MEDS: Sevelamer Carb 0.8 gm/Packet PO SCH ×3 (07:56→16:54)
--- NOTE | 2016-12-06 08:13 | CP.PCM.PN ---
Subjective - Date & Time of Evaluation Date of Evaluation: 12/06/16 Time of Evaluation: 09:55 - Subjective Subjective: PGY 2 Medicine Note- Dr. Myrick's service Patient seen and examined in no acute distress. Patient was at dialysis at the time of the encounter. Patient states that she has some left lower extremity foot pain. She was administered pain medications. Patient s/p wound debridement yesterday. She denies chest pain, palpitations, nausea, vomiting, diarrhea or paresthesias at this time. Objective - Vital Signs/Intake and Output Vital Signs (last 24 hours): Temp Pulse Resp BP Pulse Ox 98.1 F 64 20 156/56 H 97 12/06/16 00:00 12/06/16 00:00 12/06/16 00:00 12/06/16 00:00 12/06/16 00:00 Intake and Output: 12/06/16 12/06/16 06:59 18:59 Intake Total 340 Balance 340 - Medications Medications: Current Medications Allopurinol (Zyloprim) 100 mg PO DAILY [facility] Last Admin: 12/05/16 12:10 Dose: 100 mg Clotrimazole (Lotrimin 1%) 0 gm TOP BID [facility] Last Admin: 12/05/16 21:15 Dose: 1 applic Collagenase (Santyl) 30 gm TOP BID [facility] Last Admin: 12/05/16 21:15 Dose: 1 applic Docusate Sodium (Colace) 100 mg PO TID [facility] Last Admin: 12/05/16 17:32 Dose: 100 mg Epoetin Maxwell (Procrit) 10,000 unit IV TTS [facility] Last Admin: 12/04/16 11:07 Dose: 10,000 unit Ergocalciferol (Drisdol 50,000 Intl Units Cap) 1 cap PO QWK [facility] Last Admin: 11/29/16 10:00 Dose: 1 cap Escitalopram Oxalate (Lexapro) 10 mg PO DAILY [facility] Last Admin: 12/05/16 12:09 Dose: 10 mg Famotidine (Pepcid) 20 mg PO DAILY [facility] Last Admin: 12/05/16 12:10 Dose: 20 mg Ferric Sodium Gluconate Complex (Ferrlecit) 125 mg IVPB DAILY [facility] Stop: 12/07/16 10:01 Last Admin: 12/05/16 14:33 Dose: 125 mg Ferrous Sulfate (Feosol) 325 mg PO DAILY [facility] Last Admin: 12/05/16 12:17 Dose: 325 mg Furosemide (Lasix) 40 mg IVP DAILY [facility] Last Admin: 12/05/16 12:16 Dose: 40 mg Heparin Sodium (Porcine) (Heparin) 5,000 units SC Q12 [facility] Last Admin: 12/05/16 21:19 Dose: 5,000 units Heparin Sodium (Porcine) (Heparin) 3,000 units IVP TTS [facility] Last Admin: 12/04/16 10:35 Dose: Not Given Heparin Sodium (Porcine) (Heparin) 3,700 units IVP TTS [facility] Last Admin: 12/04/16 11:56 Dose: 3,700 units Hydralazine HCl (Apresoline) 50 mg PO BID [facility] Last Admin: 12/05/16 17:32 Dose: 50 mg Ciprofloxacin (Cipro 200mg/100ml D5w) 100 mls @ 100 mls/hr IVPB Q12H [facility] 234 [facility]S [facility] Last Admin: 12/06/16 06:06 Dose: 100 mls/hr Insulin Glargine (Lantus) 55 unit SC HS [facility] Last Admin: 12/05/16 21:16 Dose: 55 u Insulin Human Regular (Novolin R) 0 unit SC ACHS [facility] PRN Reason: Protocol Last Admin: 12/06/16 07:44 Dose: Not Given Losartan Potassium (Cozaar) 100 mg PO DAILY [facility] Last Admin: 12/05/16 12:10 Dose: 100 mg Metolazone (Zaroxolyn) 5 mg PO DAILY [facility] Last Admin: 12/05/16 12:10 Dose: 5 mg Morphine Sulfate (Morphine) 1 mg IVP Q15M PRN PRN Reason: Pain, moderate (4-7) Mupirocin (Bactroban Ointment) 0 gm TOP BID [facility] Last Admin: 12/05/16 21:20 Dose: 1 applic Polyethylene Glycol (Miralax) 17 gm PO DAILY [facility] 234 [facility]S [facility] Rosuvastatin Calcium (Crestor) 10 mg PO HS [facility] 234 [facility] Last Admin: 12/05/16 21:22 Dose: 10 mg Sevelamer Carbonate (Renvela) 0.8 gm PO TIDCC [facility] 234 [facility]S [facility] Last Admin: 12/06/16 07:56 Dose: 0.8 gm Vitamin B Complex/Vit C/Folic Acid (Nephro-Alonzo) 1 tab PO DAILY [facility] 234 [facility]S [facility] Last Admin: 12/05/16 12:10 Dose: 1 tab - Labs Labs: 12/06/16 07:11 12/06/16 07:11 PT 11.9 SECONDS (9.7-12.2) 12/03/16 10:00 INR 1.1 12/03/16 10:00 APTT 34 SECONDS (21-34) 12/03/16 10:00 - Constitutional Appears: Non-toxic, No Acute Distress - Head Exam Head Exam: ATRAUMATIC, NORMAL INSPECTION, NORMOCEPHALIC - Eye Exam Eye Exam: EOMI, Normal appearance, PERRL Pupil Exam: NORMAL ACCOMODATION - ENT Exam ENT Exam: Mucous Membranes Moist - Neck Exam Neck Exam: Full ROM - Respiratory Exam Respiratory Exam: NORMAL BREATHING PATTERN - Cardiovascular Exam Cardiovascular Exam: +S1, +S2 - GI/Abdominal Exam GI & Abdominal Exam: Soft, Normal Bowel Sounds - Extremities Exam Extremities Exam: Full ROM, Pedal Edema Additional comments: bilateral cellulitis on the shins b/l left arm incision wrapped/ mildly erythematous left foot ulcer wrapped- c/d/i - Neurological Exam Neurological Exam: Alert, Awake, Oriented x3 - Psychiatric Exam Psychiatric exam: Normal Affect, Normal Mood - Skin Skin Exam: Dry, Intact, Pallor, Warm Assessment and Plan - Assessment and Plan (Free Text) Assessment: Wound infection after surgery Assessment and Plan: 12/05: PICC line placed by Dr. Roman (IR) and debridement with Dr. Melendez Cefepime 1 gm Q24- Monitor Cipro 200 mg IV q 12 started on 12/05 due to sensitivity Temp 98.9 WBC stable LE dopplers negative left arm wound culture prelim- staph aureus IV abx per Dr. Meng. - Vanc following HD x5 doses blood culture negative Morphine 1 mg IV PRN for pain Status: Acute Left heel ulcer Assessment and Plan: Podiatry consult, Dr. Stevens, help appreciated Seen by podiatry- patient refused dressing changes Santyl BID CKD (chronic kidney disease) stage 3, GFR 30-59 ml/min Assessment and Plan: HD today: scheduled TuThSa Continue home med: sevelamer 0.8g TIDCC Fluid restriction Status: Chronic Lower Extremity Edema 11/29 LE dopplers: negative R/o obstruction-- 12/02: abdominal u/s: diffuse fatty infiltration of the liver. minimal hepatomegaly. bilateral renal hyperechogenicity-medical renal disease inferred, 5mm midpole nonobstructing right renal calculus-unchanged 12/02: pelvic u/s: markedly limited exam- no distended bladder to provide for sonographic window to visualize pelvic anatomy Anemia, chronic disease Assessment and Plan: Hgb stable 12/03: Patient transfused 2 units PRBCs overnight, HgB increased to 9 Continue to monitor- May benefit from additional transfusions ferrous sulfate 325mg po daily ferrlecit 125 mg daily Status: Chronic Hypertension Assessment and Plan: Continue home med: hydralazine decreased to 25mg po bid losartan 100mg po daily Status: Chronic Diabetes Assessment and Plan: accuchecks ISS Lantus 55 u sc daily (changed from 40 on 12/05) rosuvastatin 10mg po hs Status: Acute Constipation Assessment and Plan: Resolved Patient has had multiple bms continue colace 100 mg po TID Prophylactic measure Assessment and Plan: SCDs heparin 5000u sc q12 pepcid 20mg daily (renally dosed) renal diet Status: Acute
[2016-12-06] MEDS: Epoetin Alfa 10,000 unit/ml Dialysis IV SCH (09:25)
[2016-12-06] MEDS: Collagenase 250 Units/gm Ointment(30 gm) TOP SCH ×3 (09:34→17:23)
[2016-12-06] MEDS: metOLazone 5 MG TAB PO SCH (09:34)
[2016-12-06] MEDS: POLYETHYLENE GLYCOL 3350 17 GM/Dose PACKET PO SCH (09:34)
[2016-12-06] MEDS: Multivitamin Vitamin B Complex (Nephro-Vite) Tab PO SCH (09:34)
--- NOTE | 2016-12-06 09:45 | OP ---
PROCEDURE DATE: 12/05/2016 PREOPERATIVE DIAGNOSIS: Multiple open wounds and abscesses of the left arm. POSTOPERATIVE DIAGNOSIS: Multiple open wounds and abscesses of the left arm. PROCEDURE PERFORMED: Change of packing under anesthesia with debridement, redrainage of abscesses of the left elbow, pulse irrigation, and partial closure. SURGEON: Sergio Melendez MD TYPE OF ANESTHESIA: General. ESTIMATED BLOOD LOSS: 30 mL. POSTOP CONDITION: Stable. INDICATION FOR SURGERY: This is a 71-year-old female who underwent a left arm basilic vein transposition, has a functioning fistula in the left arm. However, she underwent extensive skin necrosis and developed cellulitis resulting in OR debridement. Because her brachial artery incision had broken down and the open wound was very close to the anastomosis, the first few dressing changes had been done in the operating due to the risk of bleeding. GROSS FINDINGS: The wounds were finally starting to granulate somewhat; there was still necrotic tissue, which had developed, which will be debrided. The left elbow abscess had been collected which we drained. DESCRIPTION OF PROCEDURE: The patient was taken to the operating room, placed in the supine position with the left arm extended. The arm was prepped and draped and local anesthesia was administered. Attention was turned to the brachial artery wound, which was again aggressively, but very carefully debrided avoiding the area of the anastomosis. The bleeding was controlled using the Bovie. A small branch of the brachial artery was repaired. The wound was then pulse irrigated as were the other wounds more proximally and they also were sharply debrided. Any remaining collections were cultured, especially from the elbow. Partial tissue transfer closure was performed in the main incision. The patient tolerated the procedure well and returned to the recovery room in stable condition. Sergio Melendez MD
[2016-12-06] MEDS: Clotrimazole 1% Cream(30 gm) TOP SCH ×3 (10:00→17:23)
[2016-12-06] MEDS: Ferric Sodium Gluconat Complex 62.5 mg/5 ml Vial IVPB SCH (11:10)
[2016-12-06] MEDS: Ergocalciferol 50,000 Intl Units Cap PO SCH (12:33)
--- NOTE | 2016-12-06 13:13 | CP.PCM.PN ---
Subjective - Date & Time of Evaluation Date of Evaluation: 12/06/16 Time of Evaluation: 11:35 - Subjective Subjective: 71 y/o female seen at bedside for left foot lateral and plantar ulcer. Pt is AAOx3 and is in NAD. Pt denies of any acute overnight events. Pt denies of any pain to the site. Patient denies any recent F/N/V/C/SOB. Patient denies any further pedal complaints at this time. Pt refusing dressing change at this time as she would like to have dressing changed later. Discussed with nurse who will try to change dressing later this afternoon. Will f/u tomorrow with patient. Objective - Vital Signs/Intake and Output Vital Signs (last 24 hours): Temp Pulse Resp BP Pulse Ox 97.7 F 68 16 127/54 L 97 12/06/16 12:05 12/06/16 12:05 12/06/16 12:05 12/06/16 12:05 12/06/16 12:05 Intake and Output: 12/06/16 12/06/16 06:59 18:59 Intake Total 340 Balance 340 - Medications Medications: Current Medications Allopurinol (Zyloprim) 100 mg PO DAILY [facility] Last Admin: 12/06/16 09:34 Dose: Not Given Clotrimazole (Lotrimin 1%) 0 gm TOP BID [facility] Last Admin: 12/05/16 21:15 Dose: 1 applic Collagenase (Santyl) 30 gm TOP BID [facility] Last Admin: 12/06/16 09:34 Dose: Not Given Docusate Sodium (Colace) 100 mg PO TID [facility] Last Admin: 12/06/16 09:33 Dose: Not Given Epoetin Maxwell (Procrit) 10,000 unit IV TTS [facility] Last Admin: 12/06/16 09:25 Dose: 10,000 unit Ergocalciferol (Drisdol 50,000 Intl Units Cap) 1 cap PO QWK [facility] Last Admin: 12/06/16 12:33 Dose: 1 cap Escitalopram Oxalate (Lexapro) 10 mg PO DAILY [facility] Last Admin: 12/06/16 12:33 Dose: 10 mg Famotidine (Pepcid) 20 mg PO DAILY [facility] Last Admin: 12/06/16 09:34 Dose: Not Given Ferric Sodium Gluconate Complex (Ferrlecit) 125 mg IVPB DAILY [facility] Stop: 12/07/16 10:01 Last Admin: 12/06/16 11:10 Dose: 125 mg Ferrous Sulfate (Feosol) 325 mg PO DAILY [facility] Last Admin: 12/06/16 09:33 Dose: Not Given Furosemide (Lasix) 40 mg IVP DAILY [facility] Last Admin: 12/06/16 09:33 Dose: Not Given Heparin Sodium (Porcine) (Heparin) 5,000 units SC Q12 [facility] Last Admin: 12/06/16 09:33 Dose: Not Given Heparin Sodium (Porcine) (Heparin) 3,000 units IVP TTS [facility] Last Admin: 12/06/16 09:25 Dose: 3,000 units Heparin Sodium (Porcine) (Heparin) 3,700 units IVP TTS [facility] Last Admin: 12/04/16 11:56 Dose: 3,700 units Hydralazine HCl (Apresoline) 50 mg PO BID [facility] Last Admin: 12/06/16 09:32 Dose: Not Given Ciprofloxacin (Cipro 200mg/100ml D5w) 100 mls @ 100 mls/hr IVPB Q12H [facility] Last Admin: 12/06/16 06:06 Dose: 100 mls/hr Insulin Glargine (Lantus) 55 unit SC HS [facility] Last Admin: 12/05/16 21:16 Dose: 55 u Insulin Human Regular (Novolin R) 0 unit SC ACHS [facility] PRN Reason: Protocol Last Admin: 12/06/16 12:33 Dose: 2 unit Losartan Potassium (Cozaar) 100 mg PO DAILY [facility] Last Admin: 12/06/16 09:33 Dose: Not Given Metolazone (Zaroxolyn) 5 mg PO DAILY [facility] Last Admin: 12/06/16 09:34 Dose: Not Given Morphine Sulfate (Morphine) 1 mg IVP Q15M PRN PRN Reason: Pain, moderate (4-7) Last Admin: 12/06/16 09:28 Dose: 1 mg Mupirocin (Bactroban Ointment) 0 gm TOP BID [facility] Last Admin: 12/06/16 09:32 Dose: Not Given Polyethylene Glycol (Miralax) 17 gm PO DAILY [facility] Last Admin: 12/06/16 09:34 Dose: Not Given Rosuvastatin Calcium (Crestor) 10 mg PO HS [facility] Last Admin: 12/05/16 21:22 Dose: 10 mg Sevelamer Carbonate (Renvela) 0.8 gm PO TIDCC [facility] Last Admin: 12/06/16 07:56 Dose: 0.8 gm Vitamin B Complex/Vit C/Folic Acid (Nephro-Alonzo) 1 tab PO DAILY [facility] Last Admin: 12/06/16 09:34 Dose: Not Given - Labs Labs: 12/06/16 07:11 12/06/16 07:11 PT 11.9 SECONDS (9.7-12.2) 12/03/16 10:00 INR 1.1 12/03/16 10:00 APTT 34 SECONDS (21-34) 12/03/16 10:00
--- NOTE | 2016-12-06 13:47 | CP.PCM.PN ---
Subjective - Date & Time of Evaluation Date of Evaluation: 12/06/16 Time of Evaluation: 13:47 - Subjective Subjective: AFEBRILE, S/P DEBRIDEMENT OF LEFT AVF WOUND YESTERDAY 12/05 S/P HD TODAY 12/06 dENIES SHORTNESS OF BREATH OR COUGH C/O PAIN LEFT UPPER ARM WOUND. dRESSING IN PLACE. Objective - Vital Signs/Intake and Output Vital Signs (last 24 hours): Temp Pulse Resp BP Pulse Ox 97.7 F 68 16 127/54 L 97 12/06/16 12:05 12/06/16 12:05 12/06/16 12:05 12/06/16 12:05 12/06/16 12:05 Intake and Output: 12/06/16 12/06/16 06:59 18:59 Intake Total 340 Balance 340 - Medications Medications: Current Medications Allopurinol (Zyloprim) 100 mg PO DAILY [facility] Last Admin: 12/06/16 09:34 Dose: Not Given Clotrimazole (Lotrimin 1%) 0 gm TOP BID [facility] Last Admin: 12/05/16 21:15 Dose: 1 applic Collagenase (Santyl) 30 gm TOP BID [facility] Last Admin: 12/06/16 09:34 Dose: Not Given Docusate Sodium (Colace) 100 mg PO TID [facility] Last Admin: 12/06/16 09:33 Dose: Not Given Epoetin Maxwell (Procrit) 10,000 unit IV TTS [facility] Last Admin: 12/06/16 09:25 Dose: 10,000 unit Ergocalciferol (Drisdol 50,000 Intl Units Cap) 1 cap PO QWK [facility] Last Admin: 12/06/16 12:33 Dose: 1 cap Escitalopram Oxalate (Lexapro) 10 mg PO DAILY [facility] Last Admin: 12/06/16 12:33 Dose: 10 mg Famotidine (Pepcid) 20 mg PO DAILY [facility] Last Admin: 12/06/16 09:34 Dose: Not Given Ferric Sodium Gluconate Complex (Ferrlecit) 125 mg IVPB DAILY [facility] Stop: 12/07/16 10:01 Last Admin: 12/06/16 11:10 Dose: 125 mg Ferrous Sulfate (Feosol) 325 mg PO DAILY [facility] Last Admin: 12/06/16 09:33 Dose: Not Given Furosemide (Lasix) 40 mg IVP DAILY [facility] Last Admin: 12/06/16 09:33 Dose: Not Given Heparin Sodium (Porcine) (Heparin) 5,000 units SC Q12 [facility] Last Admin: 12/06/16 09:33 Dose: Not Given Heparin Sodium (Porcine) (Heparin) 3,000 units IVP TTS [facility] Last Admin: 12/06/16 09:25 Dose: 3,000 units Heparin Sodium (Porcine) (Heparin) 3,700 units IVP TTS [facility] Last Admin: 12/04/16 11:56 Dose: 3,700 units Hydralazine HCl (Apresoline) 50 mg PO BID [facility] Last Admin: 12/06/16 09:32 Dose: Not Given Ciprofloxacin (Cipro 200mg/100ml D5w) 100 mls @ 100 mls/hr IVPB Q12H [facility] Last Admin: 12/06/16 06:06 Dose: 100 mls/hr Insulin Glargine (Lantus) 55 unit SC HS [facility] Last Admin: 12/05/16 21:16 Dose: 55 u Insulin Human Regular (Novolin R) 0 unit SC ACHS [facility] PRN Reason: Protocol Last Admin: 12/06/16 12:33 Dose: 2 unit Losartan Potassium (Cozaar) 100 mg PO DAILY [facility] Last Admin: 12/06/16 09:33 Dose: Not Given Metolazone (Zaroxolyn) 5 mg PO DAILY [facility] Last Admin: 12/06/16 09:34 Dose: Not Given Morphine Sulfate (Morphine) 1 mg IVP Q15M PRN PRN Reason: Pain, moderate (4-7) Last Admin: 12/06/16 09:28 Dose: 1 mg Mupirocin (Bactroban Ointment) 0 gm TOP BID [facility] Last Admin: 12/06/16 09:32 Dose: Not Given Polyethylene Glycol (Miralax) 17 gm PO DAILY [facility] Last Admin: 12/06/16 09:34 Dose: Not Given Rosuvastatin Calcium (Crestor) 10 mg PO HS [facility] Last Admin: 12/05/16 21:22 Dose: 10 mg Sevelamer Carbonate (Renvela) 0.8 gm PO TIDCC [facility] Last Admin: 12/06/16 12:00 Dose: Not Given Vitamin B Complex/Vit C/Folic Acid (Nephro-Alonzo) 1 tab PO DAILY [facility] Last Admin: 12/06/16 09:34 Dose: Not Given - Labs Labs: 12/06/16 07:11 12/06/16 07:11 PT 11.9 SECONDS (9.7-12.2) 12/03/16 10:00 INR 1.1 12/03/16 10:00 APTT 34 SECONDS (21-34) 12/03/16 10:00 - Constitutional Appears: No Acute Distress - Head Exam Head Exam: NORMAL INSPECTION - Eye Exam Eye Exam: EOMI, PERRL - ENT Exam ENT Exam: Normal Oropharynx - Neck Exam Neck Exam: Normal Inspection - Respiratory Exam Respiratory Exam: Clear to Ausculation Bilateral - Cardiovascular Exam Cardiovascular Exam: REGULAR RHYTHM, +S1, +S2 - GI/Abdominal Exam GI & Abdominal Exam: Soft, Normal Bowel Sounds - Extremities Exam Extremities Exam: Pedal Edema (BILATERAL ANTERIOR NIÑO ERYTHEMATOUS/AND HYPERPIGMENTED LEISION- NECROBIOSIS-LIPOIDICA.). absent: Calf Tenderness - Neurological Exam Neurological Exam: Alert, Awake, CN II-XII Intact, Oriented x3, Reflexes Normal - Psychiatric Exam Psychiatric exam: Normal Mood - Skin Skin Exam: Warm Assessment and Plan (1) Wound infection after surgery Assessment & Plan: WOUND CULTURES +VE SERRATIA MARCESCENS/ MSSA -S- CEFEPIME/AND vANCO. REPEAT CULTURES 12/03/16 -STAPH AUREUS (MSSA ) CONTINUE ON iv CEFEPIME 1 G EVERY 24 HOURLY. 11/29/16 CONTINUE iv VANCOMYCIN 1 G POST EACH HEMODIALYSIS TTS FOR STAPH/STREPT COVERAGE LWC PER DR COYLE. Status: Acute (2) Cellulitis Status: Acute (3) Foot ulcer Assessment & Plan: PATIENT ALSO HAS A LEFT LATERAL PLANTAR ULCER X 2 MONTHS ULCER 1CM ,DRY ,-VE DRAINAGE. LWC PER PODIATRY. Status: Acute (4) Peripheral vascular disease Status: Acute (5) Anemia, chronic disease Status: Chronic (6) CKD (chronic kidney disease) stage 3, GFR 30-59 ml/min Status: Chronic (7) DM2 (diabetes mellitus, type 2) Status: Chronic
--- NOTE | 2016-12-06 15:22 | CP.PCM.PN ---
Subjective - Date & Time of Evaluation Date of Evaluation: 12/06/16 Time of Evaluation: 10:00 - Subjective Subjective: SEEN ON RENAL F/U SEEN ON HD C/O LOCAL PAIN ON L FOOT AND L UPPER ARM EDEMA MUCH BETTER .. INSTRUCTED TO C/O FLUID RESTRICTION ON HD T T S Objective - Vital Signs/Intake and Output Vital Signs (last 24 hours): Temp Pulse Resp BP Pulse Ox 97.7 F 68 16 127/54 L 97 12/06/16 12:05 12/06/16 12:05 12/06/16 12:05 12/06/16 12:05 12/06/16 12:05 Intake and Output: 12/06/16 12/06/16 06:59 18:59 Intake Total 340 200 Balance 340 200 - Medications Medications: Current Medications Allopurinol (Zyloprim) 100 mg PO DAILY [facility] Last Admin: 12/06/16 09:34 Dose: Not Given Clotrimazole (Lotrimin 1%) 0 gm TOP BID [facility] Last Admin: 12/06/16 10:00 Dose: Not Given Collagenase (Santyl) 30 gm TOP BID [facility] Last Admin: 12/06/16 09:34 Dose: Not Given Docusate Sodium (Colace) 100 mg PO TID [facility] Last Admin: 12/06/16 14:03 Dose: 100 mg Epoetin Maxwell (Procrit) 10,000 unit IV TTS [facility] Last Admin: 12/06/16 09:25 Dose: 10,000 unit Ergocalciferol (Drisdol 50,000 Intl Units Cap) 1 cap PO QWK [facility] Last Admin: 12/06/16 12:33 Dose: 1 cap Escitalopram Oxalate (Lexapro) 10 mg PO DAILY [facility] Last Admin: 12/06/16 12:33 Dose: 10 mg Famotidine (Pepcid) 20 mg PO DAILY [facility] Last Admin: 12/06/16 09:34 Dose: Not Given Ferric Sodium Gluconate Complex (Ferrlecit) 125 mg IVPB DAILY [facility] Stop: 12/07/16 10:01 Last Admin: 12/06/16 11:10 Dose: 125 mg Ferrous Sulfate (Feosol) 325 mg PO DAILY [facility] Last Admin: 12/06/16 09:33 Dose: Not Given Furosemide (Lasix) 40 mg IVP DAILY [facility] Last Admin: 07/15/17 09:33 Dose: Not Given Heparin Sodium (Porcine) (Heparin) 5,000 units SC Q12 [facility] Last Admin: 12/06/16 09:33 Dose: Not Given Heparin Sodium (Porcine) (Heparin) 3,000 units IVP TTS [facility] Last Admin: 12/06/16 09:25 Dose: 3,000 units Heparin Sodium (Porcine) (Heparin) 3,700 units IVP TTS [facility] Last Admin: 12/04/16 11:56 Dose: 3,700 units Hydralazine HCl (Apresoline) 25 mg PO BID [facility] Ciprofloxacin (Cipro 200mg/100ml D5w) 100 mls @ 100 mls/hr IVPB Q12H [facility] Last Admin: 12/06/16 06:06 Dose: 100 mls/hr Insulin Glargine (Lantus) 55 unit SC HS [facility] Last Admin: 12/05/16 21:16 Dose: 55 u Insulin Human Regular (Novolin R) 0 unit SC ACHS [facility] PRN Reason: Protocol Last Admin: 12/06/16 12:33 Dose: 2 unit Losartan Potassium (Cozaar) 100 mg PO DAILY [facility] Last Admin: 12/06/16 09:33 Dose: Not Given Metolazone (Zaroxolyn) 5 mg PO DAILY [facility] Last Admin: 12/06/16 09:34 Dose: Not Given Morphine Sulfate (Morphine) 1 mg IVP Q15M PRN PRN Reason: Pain, moderate (4-7) Last Admin: 12/06/16 09:28 Dose: 1 mg Mupirocin (Bactroban Ointment) 0 gm TOP BID [facility] Last Admin: 12/06/16 09:32 Dose: Not Given Polyethylene Glycol (Miralax) 17 gm PO DAILY [facility] Last Admin: 12/06/16 09:34 Dose: Not Given Rosuvastatin Calcium (Crestor) 10 mg PO HS [facility] Last Admin: 12/05/16 21:22 Dose: 10 mg Sevelamer Carbonate (Renvela) 0.8 gm PO TIDCC [facility] Last Admin: 12/06/16 12:00 Dose: Not Given Vitamin B Complex/Vit C/Folic Acid (Nephro-Alonzo) 1 tab PO DAILY [facility] Last Admin: 12/06/16 09:34 Dose: Not Given - Labs Labs: 12/06/16 07:11 12/06/16 07:11 PT 11.9 SECONDS (9.7-12.2) 12/03/16 10:00 INR 1.1 12/03/16 10:00 APTT 34 SECONDS (21-34) 12/03/16 10:00 Assessment and Plan - Assessment and Plan (Free Text) Assessment: ESRD ON HD T T S .. TO BE CONTINUED ANEMIA OF CKD .. ON EPO SEPSIS .. ULCERS ON L U ARM AND L FOOT .. ON IVAB MULTILE CO MPRBIDITIES P C/O CURRENT CARE TAPER DOWN HYDRALAZIN TO 25 MP PO BID . BP IS COMING DOWN IVAB PER ID SERVICE
[2016-12-06] MEDS ORDERED: hydrALAZINE 12.5 mg Tab PO SCH (18:00)
[2016-12-06] MEDS: Cefepime IV 1 gm in Dextrose 1 GM/50 ML BAG IVPB SCH (18:16)
[2016-12-06] MEDS: (Lantus) Insulin Glargine, Recombinant SC SCH (21:42)
[2016-12-07] MEDS: Ciprofloxacin 200mg/100ml D5W 100 ML IVPB SCH ×2 (06:15→18:41)
[2016-12-07 07:10] LABS: BASO # 0.2 K/uL (0.0-0.2); BASO % 1.4 % (0.0-2.0); EOS # 0.5 K/uL (0.0-0.7); EOS % 4.5 % (0.0-4.0); HEMOGLOBIN 10.7 g/dL (11.0-16.0); LYMPH # 1.8 K/uL (1.0-4.3); LYMPH % 15.1 % (20.0-40.0); MEAN CELL VOLUME 96.2 fL (81.0-99.0); MEAN CORPUSCULAR HEMOGLOBIN 30.1 pg (27.0-31.0); MEAN CORPUSCULAR HGB CONC 31.3 g/dL (33.0-37.0); MEAN PLATELET VOLUME 10.3 fL (7.2-11.7); MONO # 1.6 K/uL (0.0-0.8); MONO % 13.3 % (0.0-10.0); NEUT # 7.8 K/uL (1.8-7.0); NEUT % 65.7 % (50.0-75.0); NRBC % 0.2 % (0.0-2.0); RBC 3.55 Mil/uL (3.80-5.20); RED CELL DISTRIBUTION WIDTH 18.9 % (11.5-14.5); WHITE BLOOD COUNT 11.8 K/uL (4.8-10.8)
[2016-12-07 07:59] LABS: ALBUMIN 3.3 g/dL (3.5-5.0)
[2016-12-07 08:02] LABS: ALB/GLOB RATIO 1.1 (1.0-2.1); CALCIUM 8.9 mg/dl (8.6-10.4); MAGNESIUM 2.1 mg/dL (1.6-2.3)
[2016-12-07] MEDS: (Novolin R) Insulin Human Regular 100 units/ml vial SC SCH ×4 (08:37→21:13)
[2016-12-07] MEDS: Sevelamer Carb 0.8 gm/Packet PO SCH ×3 (09:00→16:50)
[2016-12-07] MEDS: Clotrimazole 1% Cream(30 gm) TOP SCH ×2 (10:00→17:07)
[2016-12-07] MEDS: POLYETHYLENE GLYCOL 3350 17 GM/Dose PACKET PO SCH (10:22)
[2016-12-07] MEDS: Ferric Sodium Gluconat Complex 62.5 mg/5 ml Vial IVPB SCH (10:24)
[2016-12-07] MEDS: Multivitamin Vitamin B Complex (Nephro-Vite) Tab PO SCH (10:25)
[2016-12-07] MEDS: metOLazone 5 MG TAB PO SCH (10:26)
--- NOTE | 2016-12-07 12:36 | CP.PCM.PN ---
Subjective - Date & Time of Evaluation Date of Evaluation: 12/07/16 Time of Evaluation: 10:05 - Subjective Subjective: PGY 2 Medicine Note- Dr. Myrick's service Patient seen and examined in no acute distress. Patient to go to OR for wound debridement today. She admits to foot pain. She denies subjective fevers or chills, chest pain, palpitations, nausea, vomiting, diarrhea or paresthesias at this time. Objective - Vital Signs/Intake and Output Vital Signs (last 24 hours): Temp Pulse Resp BP Pulse Ox 98.5 F 68 20 159/61 H 95 12/07/16 08:47 12/07/16 08:47 12/07/16 08:47 12/07/16 10:24 12/07/16 08:47 Intake and Output: 12/07/16 12/07/16 06:59 18:59 Intake Total 660 Balance 660 - Medications Medications: Current Medications Allopurinol (Zyloprim) 100 mg PO DAILY [facility] Last Admin: 12/07/16 10:25 Dose: 100 mg Clotrimazole (Lotrimin 1%) 0 gm TOP BID [facility] Last Admin: 12/06/16 17:23 Dose: Not Given Collagenase (Santyl) 30 gm TOP BID [facility] Last Admin: 12/06/16 17:23 Dose: Not Given Docusate Sodium (Colace) 100 mg PO TID [facility] Last Admin: 12/07/16 10:26 Dose: 100 mg Epoetin Maxwell (Procrit) 10,000 unit IV TTS [facility] Last Admin: 12/06/16 09:25 Dose: 10,000 unit Ergocalciferol (Drisdol 50,000 Intl Units Cap) 1 cap PO QWK [facility] Last Admin: 12/06/16 12:33 Dose: 1 cap Escitalopram Oxalate (Lexapro) 10 mg PO DAILY [facility] Last Admin: 12/07/16 10:25 Dose: 10 mg Famotidine (Pepcid) 20 mg PO DAILY [facility] Last Admin: 12/07/16 10:25 Dose: 20 mg Ferrous Sulfate (Feosol) 325 mg PO DAILY [facility] Last Admin: 12/07/16 10:25 Dose: 325 mg Furosemide (Lasix) 40 mg IVP DAILY [facility] Last Admin: 12/07/16 10:24 Dose: 40 mg Heparin Sodium (Porcine) (Heparin) 5,000 units SC Q12 [facility] Last Admin: 12/06/16 21:41 Dose: 5,000 units Hydralazine HCl (Apresoline) 25 mg PO BID [facility] Last Admin: 12/07/16 10:25 Dose: 25 mg Ciprofloxacin (Cipro 200mg/100ml D5w) 100 mls @ 100 mls/hr IVPB Q12H [facility] Last Admin: 12/07/16 06:15 Dose: 100 mls/hr Cefepime HCl (Maxipime Iv 1 Gm Premix) 1 gm in 50 mls @ 100 mls/hr IVPB Q24H [facility] Last Admin: 12/06/16 18:16 Dose: 100 mls/hr Insulin Glargine (Lantus) [address] [facility] Last Admin: 12/06/16 21:42 Dose: 55 u Insulin Human Regular (Novolin R) 0 unit SC ACHS [facility] PRN Reason: Protocol Last Admin: 12/07/16 08:37 Dose: Not Given Losartan Potassium (Cozaar) 100 mg PO DAILY [facility] Last Admin: 12/07/16 10:25 Dose: 100 mg Metolazone (Zaroxolyn) 5 mg PO DAILY [facility] Last Admin: 12/07/16 10:26 Dose: 5 mg Morphine Sulfate (Morphine) 1 mg IVP Q15M PRN PRN Reason: Pain, moderate (4-7) Last Admin: 12/06/16 09:28 Dose: 1 mg Mupirocin (Bactroban Ointment) 0 gm TOP BID [facility] Last Admin: 12/07/16 10:43 Dose: Not Given Polyethylene Glycol (Miralax) 17 gm PO DAILY [facility] Last Admin: 12/07/16 10:22 Dose: 17 gm Rosuvastatin Calcium (Crestor) 10 mg PO HS [facility] Last Admin: 12/06/16 21:42 Dose: 10 mg Sevelamer Carbonate (Renvela) 0.8 gm PO TIDCC [facility] Last Admin: 12/07/16 09:00 Dose: 0.8 gm Vitamin B Complex/Vit C/Folic Acid (Nephro-Alonzo) 1 tab PO DAILY [facility] Last Admin: 12/07/16 10:25 Dose: 1 tab - Labs Labs: 12/07/16 07:00 12/07/16 07:00 PT 11.9 SECONDS (9.7-12.2) 12/03/16 10:00 INR 1.1 12/03/16 10:00 APTT 34 SECONDS (21-34) 12/03/16 10:00 - Constitutional Appears: Non-toxic, No Acute Distress - Head Exam Head Exam: ATRAUMATIC, NORMAL INSPECTION, NORMOCEPHALIC - Eye Exam Eye Exam: EOMI, Normal appearance, PERRL Pupil Exam: NORMAL ACCOMODATION, PERRL - ENT Exam ENT Exam: Mucous Membranes Moist, Normal Exam - Neck Exam Neck Exam: Full ROM - Respiratory Exam Respiratory Exam: NORMAL BREATHING PATTERN. absent: Wheezes - Cardiovascular Exam Cardiovascular Exam: +S1, +S2 - GI/Abdominal Exam GI & Abdominal Exam: Soft, Normal Bowel Sounds - Extremities Exam Extremities Exam: Full ROM, Pedal Edema Additional comments: bilateral cellulitis on the shins left arm incision wrapped/ mildly erythematous left foot ulcer wrapped- c/d/i - Back Exam Back Exam: Full ROM - Neurological Exam Neurological Exam: Alert, Awake, Oriented x3 - Psychiatric Exam Psychiatric exam: Normal Affect, Normal Mood - Skin Skin Exam: Erythema, Normal Color, Warm Additional comments: left UE dressing site Assessment and Plan - Assessment and Plan (Free Text) Assessment: Wound infection after surgery Assessment and Plan: To OR today for debridement 12/05: PICC line placed by Dr. Roman (IR) and debridement with Dr. Melendez Cefepime 1 gm Q24- Monitor Cipro 200 mg IV q 12 started on 12/05 due to sensitivity Temp 98.9 WBC stable LE dopplers negative left arm wound culture prelim- staph aureus IV abx per Dr. Meng. - Vanc following HD x5 doses blood culture negative Morphine 1 mg IV PRN for pain Status: Acute Left heel ulcer Assessment and Plan: Podiatry consult, Dr. Stevens, help appreciated Seen by podiatry- patient refused dressing changes on 12/06 Santyl BID CKD (chronic kidney disease) stage 3, GFR 30-59 ml/min Assessment and Plan: HD scheduled TuThSa Continue home med: sevelamer 0.8g TIDCC Fluid restriction Status: Chronic Lower Extremity Edema 11/29 LE dopplers: negative R/o obstruction-- 12/02: abdominal u/s: diffuse fatty infiltration of the liver. minimal hepatomegaly. bilateral renal hyperechogenicity-medical renal disease inferred, 5mm midpole nonobstructing right renal calculus-unchanged 12/02: pelvic u/s: markedly limited exam- no distended bladder to provide for sonographic window to visualize pelvic anatomy Anemia, chronic disease Assessment and Plan: Hgb stable 12/03: Patient transfused 2 units PRBCs overnight, HgB increased to 9 Continue to monitor- May benefit from additional transfusions ferrous sulfate 325mg po daily ferrlecit 125 mg daily Status: Chronic Hypertension Assessment and Plan: Continue home med: hydralazine decreased to 25mg po bid losartan 100mg po daily Status: Chronic Diabetes Assessment and Plan: accuchecks ISS Lantus 55 u sc daily (changed from 40 on 12/05) rosuvastatin 10mg po hs Status: Acute Constipation Assessment and Plan: Resolved Patient has had multiple bms continue colace 100 mg po TID Prophylactic measure Assessment and Plan: SCDs heparin 5000u sc q12- held prior to procedure pepcid 20mg daily (renally dosed) renal diet Status: Acute
--- NOTE | 2016-12-07 12:55 | CP.PCM.PN ---
Subjective - Date & Time of Evaluation Date of Evaluation: 12/07/16 Time of Evaluation: 11:50 - Subjective Subjective: 71 y/o female seen at bedside today regarding left foot lateral and plantar ulcerations. Pt is AAOx3 and is in NAD. Pt denies of any acute overnight events. Seen resting comfortably at bedside with visitor present at time of visit. Denies any acute events overnight. Does complain of some mild foot pain today. Denies f/n/v/c/sob/cp at this time. Objective - Vital Signs/Intake and Output Vital Signs (last 24 hours): Temp Pulse Resp BP Pulse Ox 98.5 F 68 20 159/61 H 95 12/07/16 08:47 12/07/16 08:47 12/07/16 08:47 12/07/16 10:24 12/07/16 08:47 Intake and Output: 12/07/16 12/07/16 06:59 18:59 Intake Total 660 Balance 660 - Medications Medications: Current Medications Allopurinol (Zyloprim) 100 mg PO DAILY [facility] Last Admin: 12/07/16 10:25 Dose: 100 mg Clotrimazole (Lotrimin 1%) 0 gm TOP BID [facility] Last Admin: 12/06/16 17:23 Dose: Not Given Collagenase (Santyl) 30 gm TOP BID [facility] Last Admin: 12/06/16 17:23 Dose: Not Given Docusate Sodium (Colace) 100 mg PO TID [facility] Last Admin: 12/07/16 10:26 Dose: 100 mg Epoetin Maxwell (Procrit) 10,000 unit IV TTS [facility] Last Admin: 12/06/16 09:25 Dose: 10,000 unit Ergocalciferol (Drisdol 50,000 Intl Units Cap) 1 cap PO QWK [facility] Last Admin: 12/06/16 12:33 Dose: 1 cap Escitalopram Oxalate (Lexapro) 10 mg PO DAILY [facility] Last Admin: 12/07/16 10:25 Dose: 10 mg Famotidine (Pepcid) 20 mg PO DAILY [facility] Last Admin: 12/07/16 10:25 Dose: 20 mg Ferrous Sulfate (Feosol) 325 mg PO DAILY [facility] Last Admin: 12/07/16 10:25 Dose: 325 mg Furosemide (Lasix) 40 mg IVP DAILY [facility] Last Admin: 12/07/16 10:24 Dose: 40 mg Heparin Sodium (Porcine) (Heparin) 5,000 units SC Q12 [facility] Last Admin: 12/06/16 21:41 Dose: 5,000 units Hydralazine HCl (Apresoline) 25 mg PO BID [facility] Last Admin: 12/07/16 10:25 Dose: 25 mg Ciprofloxacin (Cipro 200mg/100ml D5w) 100 mls @ 100 mls/hr IVPB Q12H [facility] Last Admin: 12/07/16 06:15 Dose: 100 mls/hr Cefepime HCl (Maxipime Iv 1 Gm Premix) 1 gm in 50 mls @ 100 mls/hr IVPB Q24H [facility] Last Admin: 12/06/16 18:16 Dose: 100 mls/hr Insulin Glargine (Lantus) 55 unit SC [facility] Last Admin: 12/06/16 21:42 Dose: 55 u Insulin Human Regular (Novolin R) 0 unit SC ACHS [facility] PRN Reason: Protocol Last Admin: 12/07/16 12:37 Dose: 8 unit Losartan Potassium (Cozaar) 100 mg PO DAILY [facility] Last Admin: 12/07/16 10:25 Dose: 100 mg Metolazone (Zaroxolyn) 5 mg PO DAILY [facility] Last Admin: 12/07/16 10:26 Dose: 5 mg Morphine Sulfate (Morphine) 1 mg IVP Q15M PRN PRN Reason: Pain, moderate (4-7) Last Admin: 12/06/16 09:28 Dose: 1 mg Mupirocin (Bactroban Ointment) 0 gm TOP BID [facility] Last Admin: 12/07/16 10:43 Dose: Not Given Polyethylene Glycol (Miralax) 17 gm PO DAILY [facility] Last Admin: 12/07/16 10:22 Dose: 17 gm Rosuvastatin Calcium (Crestor) 10 mg PO HS [facility] Last Admin: 12/06/16 21:42 Dose: 10 mg Sevelamer Carbonate (Renvela) 0.8 gm PO TIDCC [facility] Last Admin: 12/07/16 09:00 Dose: 0.8 gm Vitamin B Complex/Vit C/Folic Acid (Nephro-Alonzo) 1 tab PO DAILY [facility] Last Admin: 12/07/16 10:25 Dose: 1 tab - Labs Labs: 12/07/16 07:00 12/07/16 07:00 PT 11.9 SECONDS (9.7-12.2) 12/03/16 10:00 INR 1.1 12/03/16 10:00 APTT 34 SECONDS (21-34) 12/03/16 10:00 - Constitutional Appears: Non-toxic, No Acute Distress - Extremities Exam Additional comments: VASC: DP/PT pulses palpable 1/4 b/l. CFT < 3 seconds to all digits, temperature gradient is warm to cool. Moderate pitting edema noted to b/l lower extremities DERM: Velazco stage 1 ulceration seen at lateral and plantar heel on left foot. No purulent drainage, malodor, undermining, tracking, periwound erythema or other clinical signs of infection noted to the area. Hyperkeratotic periwound area noted with mild maceration seen at plantar aspect of wound. Erythematous skin changes noted to anterior shins b/l (possible hemosiderin deposition). No other open lesions noted at this time. NEURO: Epicritic and protective sensation grossly intact b/l ORTHO: Mild pain on palpation noted to ulcer site of left foot - Neurological Exam Neurological Exam: Alert, Awake, Oriented x3 - Psychiatric Exam Psychiatric exam: Normal Affect, Normal Mood Assessment and Plan - Assessment and Plan (Free Text) Assessment: 71 year old female seen at bedside with left foot 2/2 DM, ESRD, CHF and CKD Plan: Pt S&E at bedside Plan discussed in detail with attending Dr. Molina Labs and vitals reviewed (afebrile), WBC trending up 11.8 today (up from 10.4) CUCO/PVR 10/22/16: left: .35, right .98 left foot heel ulcer cleansed with sterile saline, dressed with Santyl, 4x4 gauze and kerlix cont. wearing offloading boots while in bed Continue with abx per ID Podiatry will continue to follow while in house
[2016-12-07] MEDS: Collagenase 250 Units/gm Ointment(30 gm) TOP SCH ×2 (14:09→17:09)
[2016-12-07] MEDS: Cefepime IV 1 gm in Dextrose 1 GM/50 ML BAG IVPB SCH (17:00)
[2016-12-07] MEDS: (Lantus) Insulin Glargine, Recombinant SC SCH (21:12)
[2016-12-08] MEDS: Ciprofloxacin 200mg/100ml D5W 100 ML IVPB SCH ×2 (06:37→18:50)
--- NOTE | 2016-12-08 07:21 | CP.PCM.PN ---
Subjective - Date & Time of Evaluation Date of Evaluation: 12/08/16 Time of Evaluation: 07:21 - Subjective Subjective: PGY-1 note for medicine, Dr. Myrick Pt seen and examined at bedside. Nursing reports no acute events overnight. Pt is NPO after breakfast for surgery today with Dr. Melendez. She states she is feeling better since admission, and pain at AV fistula site has decreased. Pt states pain in foot is better today as well. She denies subjective fevers or chills, chest pain, palpitations, nausea, vomiting, diarrhea or paresthesias at this time. Objective - Vital Signs/Intake and Output Vital Signs (last 24 hours): Temp Pulse Resp BP Pulse Ox 98 F 69 20 146/58 L 97 12/08/16 00:00 12/08/16 00:00 12/08/16 00:00 12/07/16 15:00 12/08/16 00:00 Intake and Output: 12/08/16 12/08/16 06:59 18:59 Intake Total 620 Balance 620 - Medications Medications: Current Medications Allopurinol (Zyloprim) 100 mg PO DAILY [facility] Last Admin: 12/07/16 10:25 Dose: 100 mg Clotrimazole (Lotrimin 1%) 0 gm TOP BID [facility] Last Admin: 12/07/16 17:07 Dose: 1 applic Collagenase (Santyl) 30 gm TOP BID [facility] Last Admin: 12/07/16 17:09 Dose: Not Given Docusate Sodium (Colace) 100 mg PO TID [facility] Last Admin: 12/07/16 17:00 Dose: 100 mg Epoetin Maxwell (Procrit) 10,000 unit IV TTS [facility] Last Admin: 12/06/16 09:25 Dose: 10,000 unit Ergocalciferol (Drisdol 50,000 Intl Units Cap) 1 cap PO QWK [facility] Last Admin: 12/06/16 12:33 Dose: 1 cap Escitalopram Oxalate (Lexapro) 10 mg PO DAILY [facility] Last Admin: 12/07/16 10:25 Dose: 10 mg Famotidine (Pepcid) 20 mg PO DAILY [facility] Last Admin: 12/07/16 10:25 Dose: 20 mg Ferrous Sulfate (Feosol) 325 mg PO DAILY [facility] Last Admin: 12/07/16 10:25 Dose: 325 mg Furosemide (Lasix) 40 mg IVP DAILY [facility] Last Admin: 12/07/16 10:24 Dose: 40 mg Heparin Sodium (Porcine) (Heparin) 5,000 units SC Q12 [facility] Last Admin: 12/06/16 21:41 Dose: 5,000 units Hydralazine HCl (Apresoline) 25 mg PO BID [facility] Last Admin: 12/07/16 17:00 Dose: 25 mg Ciprofloxacin (Cipro 200mg/100ml D5w) 100 mls @ 100 mls/hr IVPB Q12H [facility] Last Admin: 12/08/16 06:37 Dose: 100 mls/hr Cefepime HCl (Maxipime Iv 1 Gm Premix) 1 gm in 50 mls @ 100 mls/hr IVPB Q24H [facility] Last Admin: 12/07/16 17:00 Dose: 100 mls/hr Insulin Glargine (Lantus) 55 unit SC [facility] Last Admin: 12/07/16 21:12 Dose: Not Given Insulin Human Regular (Novolin R) 0 unit SC ACHS [facility] PRN Reason: Protocol Last Admin: 12/07/16 21:13 Dose: Not Given Losartan Potassium (Cozaar) 100 mg PO DAILY [facility] Last Admin: 12/07/16 10:25 Dose: 100 mg Metolazone (Zaroxolyn) 5 mg PO DAILY [facility] Last Admin: 12/07/16 10:26 Dose: 5 mg Morphine Sulfate (Morphine) 1 mg IVP Q15M PRN PRN Reason: Pain, moderate (4-7) Last Admin: 12/06/16 09:28 Dose: 1 mg Mupirocin (Bactroban Ointment) 0 gm TOP BID [facility] Last Admin: 12/07/16 17:07 Dose: 1 applic Polyethylene Glycol (Miralax) 17 gm PO DAILY [facility] Last Admin: 12/07/16 10:22 Dose: 17 gm Rosuvastatin Calcium (Crestor) 10 mg PO HS [facility] Last Admin: 12/07/16 21:11 Dose: 10 mg Sevelamer Carbonate (Renvela) 0.8 gm PO TIDCC [facility] Last Admin: 12/07/16 16:50 Dose: 0.8 gm Vitamin B Complex/Vit C/Folic Acid (Nephro-Alonzo) 1 tab PO DAILY [facility] Last Admin: 12/07/16 10:25 Dose: 1 tab - Labs Labs: 12/07/16 07:00 12/07/16 07:00 PT 11.9 SECONDS (9.7-12.2) 12/03/16 10:00 INR 1.1 12/03/16 10:00 APTT 34 SECONDS (21-34) 12/03/16 10:00 - Additional Findings Additional findings: - Constitutional Appears: Non-toxic, No Acute Distress - Head Exam Head Exam: ATRAUMATIC, NORMAL INSPECTION, NORMOCEPHALIC - Eye Exam Eye Exam: EOMI, Normal appearance, PERRL Pupil Exam: NORMAL ACCOMODATION, PERRL - ENT Exam ENT Exam: Mucous Membranes Moist, Normal Exam - Neck Exam Neck Exam: Full ROM - Respiratory Exam Respiratory Exam: NORMAL BREATHING PATTERN. absent: Wheezes - Cardiovascular Exam Cardiovascular Exam: +S1, +S2 - GI/Abdominal Exam GI & Abdominal Exam: Soft, Normal Bowel Sounds - Extremities Exam Extremities Exam: Full ROM, Pedal Edema Additional comments: bilateral cellulitis on the shins left arm incision wrapped/ mildly erythematous left foot ulcer wrapped- c/d/i - Back Exam Back Exam: Full ROM - Neurological Exam Neurological Exam: Alert, Awake, Oriented x3 - Psychiatric Exam Psychiatric exam: Normal Affect, Normal Mood - Skin Skin Exam: Erythema, Normal Color, Warm Additional comments: left UE dressing site Assessment and Plan - Assessment and Plan (Free Text) Plan: Wound infection after surgery Assessment and Plan: To OR today for debridement 12/05: PICC line placed by Dr. Roman (IR) and debridement with Dr. Melendez Cefepime 1 gm Q24- Monitor Cipro 200 mg IV q 12 started on 12/05 due to sensitivity Temp 98.9 WBC stable LE dopplers negative left arm wound culture prelim- staph aureus IV abx per Dr. Meng. - Vanc following HD x5 doses blood culture negative Morphine 1 mg IV PRN for pain Status: Acute Left heel ulcer Assessment and Plan: Podiatry consult, Dr. Stevens, help appreciated Seen by podiatry- patient refused dressing changes on 12/06 Santyl BID CKD (chronic kidney disease) stage 3, GFR 30-59 ml/min Assessment and Plan: HD scheduled TuThSa Continue home med: sevelamer 0.8g TIDCC Fluid restriction Status: Chronic Lower Extremity Edema 11/29 LE dopplers: negative R/o obstruction-- 12/02: abdominal u/s: diffuse fatty infiltration of the liver. minimal hepatomegaly. bilateral renal hyperechogenicity-medical renal disease inferred, 5mm midpole nonobstructing right renal calculus-unchanged 12/02: pelvic u/s: markedly limited exam- no distended bladder to provide for sonographic window to visualize pelvic anatomy Anemia, chronic disease Assessment and Plan: Hgb stable 12/03: Patient transfused 2 units PRBCs overnight, HgB increased to 9 Continue to monitor- May benefit from additional transfusions ferrous sulfate 325mg po daily ferrlecit 125 mg daily Status: Chronic Hypertension Assessment and Plan: Continue home med: hydralazine decreased to 25mg po bid losartan 100mg po daily Status: Chronic Diabetes Assessment and Plan: accuchecks ISS Lantus 55 u sc daily (changed from 40 on 12/05) rosuvastatin 10mg po hs Status: Acute Constipation Assessment and Plan: Resolved Patient has had multiple bms continue colace 100 mg po TID Prophylactic measure Assessment and Plan: SCDs heparin 5000u sc q12- held prior to procedure pepcid 20mg daily (renally dosed) renal diet Status: Acute
[2016-12-08 07:32] LABS: BASO # 0.1 K/uL (0.0-0.2); BASO % 1.2 % (0.0-2.0); EOS # 0.6 K/uL (0.0-0.7); EOS % 5.4 % (0.0-4.0); HEMOGLOBIN 10.5 g/dL (11.0-16.0); LYMPH # 1.6 K/uL (1.0-4.3); LYMPH % 14.2 % (20.0-40.0); MEAN CELL VOLUME 97.5 fL (81.0-99.0); MEAN CORPUSCULAR HEMOGLOBIN 30.5 pg (27.0-31.0); MEAN CORPUSCULAR HGB CONC 31.3 g/dL (33.0-37.0); MEAN PLATELET VOLUME 10.2 fL (7.2-11.7); MONO # 1.4 K/uL (0.0-0.8); MONO % 12.6 % (0.0-10.0); NEUT # 7.5 K/uL (1.8-7.0); NEUT % 66.6 % (50.0-75.0); NRBC % 0.1 % (0.0-2.0); RBC 3.43 Mil/uL (3.80-5.20); RED CELL DISTRIBUTION WIDTH 18.7 % (11.5-14.5); WHITE BLOOD COUNT 11.3 K/uL (4.8-10.8)
[2016-12-08 07:56] LABS: ALBUMIN 3.1 g/dL (3.5-5.0)
[2016-12-08 07:59] LABS: ALB/GLOB RATIO 1.1 (1.0-2.1); CALCIUM 8.8 mg/dl (8.6-10.4); MAGNESIUM 2.3 mg/dL (1.6-2.3)
[2016-12-08] MEDS: (Novolin R) Insulin Human Regular 100 units/ml vial SC SCH ×4 (08:41→21:49)
[2016-12-08] MEDS: Multivitamin Vitamin B Complex (Nephro-Vite) Tab PO SCH (09:20)
[2016-12-08] MEDS: POLYETHYLENE GLYCOL 3350 17 GM/Dose PACKET PO SCH (09:20)
[2016-12-08] MEDS: Sevelamer Carb 0.8 gm/Packet PO SCH ×3 (09:20→17:38)
[2016-12-08] MEDS: metOLazone 5 MG TAB PO SCH (10:06)
[2016-12-08] MEDS: Collagenase 250 Units/gm Ointment(30 gm) TOP SCH ×2 (10:11→17:36)
[2016-12-08] MEDS: Clotrimazole 1% Cream(30 gm) TOP SCH ×2 (10:29→17:35)
--- NOTE | 2016-12-08 11:04 | US ---
Date of procedure: 12/05/2016 Procedure: Ultrasound guidance for vascular access HISTORY: Infection requiring long-term IV antibiotics TECHNIQUE: Following informed consent and procedure time-out, the patient placed supine on the interventional table and the right arm prepped and draped in the usual sterile fashion. Ultrasound showed a patent and compressible basilic vein. After the skin was anesthetized with lidocaine, the basilic vein was accessed with micro micropuncture technique using ultrasound guidance. An image documenting ultrasound guidance for vascular access was permanently saved. IMPRESSION: Ultrasound guidance for vascular access for placement of PICC.
--- NOTE | 2016-12-08 11:29 | CP.PCM.PN ---
Subjective - Date & Time of Evaluation Date of Evaluation: 12/08/16 Time of Evaluation: 11:29 - Subjective Subjective: 71 y/o female seen at bedside today regarding left foot lateral and plantar ulcerations. Pt is AAOx3 and is in NAD. Pt denies of any acute overnight events. Seen resting comfortably at bedside with visitor present at time of visit. Denies any acute events overnight. Does complain of some mild foot pain today. Denies f/n/v/c/sob/cp at this time. Objective - Vital Signs/Intake and Output Vital Signs (last 24 hours): Temp Pulse Resp BP Pulse Ox 97.8 F 72 20 189/63 H 96 12/08/16 08:46 12/08/16 08:46 12/08/16 08:46 12/08/16 10:06 12/08/16 08:46 Intake and Output: 12/08/16 12/08/16 06:59 18:59 Intake Total 620 Balance 620 - Medications Medications: Current Medications Allopurinol (Zyloprim) 100 mg PO DAILY [facility] Last Admin: 12/08/16 10:12 Dose: Not Given Clotrimazole (Lotrimin 1%) 0 gm TOP BID [facility] Last Admin: 12/08/16 10:29 Dose: 1 applic Collagenase (Santyl) 30 gm TOP BID [facility] Last Admin: 12/08/16 10:11 Dose: Not Given Docusate Sodium (Colace) 100 mg PO TID [facility] Last Admin: 12/08/16 09:19 Dose: Not Given Epoetin Maxwell (Procrit) 10,000 unit IV TTS [facility] Last Admin: 12/06/16 09:25 Dose: 10,000 unit Ergocalciferol (Drisdol 50,000 Intl Units Cap) 1 cap PO QWK [facility] Last Admin: 12/06/16 12:33 Dose: 1 cap Escitalopram Oxalate (Lexapro) 10 mg PO DAILY [facility] Last Admin: 12/08/16 10:07 Dose: Not Given Famotidine (Pepcid) 20 mg PO DAILY [facility] Last Admin: 12/08/16 10:08 Dose: Not Given Ferrous Sulfate (Feosol) 325 mg PO DAILY [facility] Last Admin: 12/08/16 09:20 Dose: Not Given Furosemide (Lasix) 40 mg IVP DAILY [facility] Last Admin: 12/08/16 10:06 Dose: 40 mg Heparin Sodium (Porcine) (Heparin) 5,000 units SC Q12 [facility] Last Admin: 12/06/16 21:41 Dose: 5,000 units Hydralazine HCl (Apresoline) 25 mg PO BID [facility] Last Admin: 12/08/16 10:05 Dose: 25 mg Ciprofloxacin (Cipro 200mg/100ml D5w) 100 mls @ 100 mls/hr IVPB Q12H [facility] Last Admin: 12/08/16 06:37 Dose: 100 mls/hr Cefepime HCl (Maxipime Iv 1 Gm Premix) 1 gm in 50 mls @ 100 mls/hr IVPB Q24H [facility] Last Admin: 12/07/16 17:00 Dose: 100 mls/hr Insulin Glargine (Lantus) 55 unit SC [facility] Last Admin: 12/07/16 21:12 Dose: Not Given Insulin Human Regular (Novolin R) 0 unit SC ACHS [facility] PRN Reason: Protocol Last Admin: 12/08/16 08:41 Dose: Not Given Losartan Potassium (Cozaar) 100 mg PO DAILY [facility] Last Admin: 12/08/16 10:06 Dose: 100 mg Metolazone (Zaroxolyn) 5 mg PO DAILY [facility] Last Admin: 12/08/16 10:06 Dose: 5 mg Mupirocin (Bactroban Ointment) 0 gm TOP BID [facility] Last Admin: 12/08/16 10:06 Dose: Not Given Polyethylene Glycol (Miralax) 17 gm PO DAILY [facility] Last Admin: 12/08/16 09:20 Dose: Not Given Rosuvastatin Calcium (Crestor) 10 mg PO HS [facility] Last Admin: 12/07/16 21:11 Dose: 10 mg Sevelamer Carbonate (Renvela) 0.8 gm PO TIDCC [facility] Last Admin: 12/08/16 09:20 Dose: Not Given Vitamin B Complex/Vit C/Folic Acid (Nephro-Alonzo) 1 tab PO DAILY [facility] Last Admin: 12/08/16 09:20 Dose: Not Given - Labs Labs: 12/08/16 07:15 12/08/16 07:15 PT 11.9 SECONDS (9.7-12.2) 12/03/16 10:00 INR 1.1 12/03/16 10:00 APTT 34 SECONDS (21-34) 12/03/16 10:00 - Constitutional Appears: Well, Non-toxic, No Acute Distress - Extremities Exam Additional comments: VASC: DP/PT pulses palpable 1/4 b/l. CFT < 3 seconds to all digits, temperature gradient is warm to cool. Moderate pitting edema noted to b/l lower extremities DERM: Velazco stage 1 ulceration seen at lateral and plantar heel on left foot. No purulent drainage, malodor, undermining, tracking, periwound erythema or other clinical signs of infection noted to the area. Hyperkeratotic periwound area noted with mild maceration seen at plantar aspect of wound. Erythematous skin changes noted to anterior shins b/l (possible hemosiderin deposition). No other open lesions noted at this time. NEURO: Epicritic and protective sensation grossly intact b/l ORTHO: Mild pain on palpation noted to ulcer site of left foot - Neurological Exam Neurological Exam: Alert, Awake, Oriented x3 Assessment and Plan - Assessment and Plan (Free Text) Assessment: 71 year old female seen at bedside with left foot 2/2 DM, ESRD, CHF and CKD Plan: Pt S&E at bedside Plan discussed in detail with attending Dr. Molina Labs and vitals reviewed (afebrile), WBC 11.3 CUCO/PVR 10/22/16: left: .35, right .98 left foot heel ulcer cleansed with sterile saline, dressed with Santyl, 4x4 gauze and kerlix cont. wearing offloading boots while in bed Continue with abx per ID Podiatry will continue to follow while in house
[2016-12-08] MEDS ORDERED: (Novolin R) Insulin Human Regular 100 units/ml vial SC ONE (12:15)
[2016-12-08] MEDS: Cefepime IV 1 gm in Dextrose 1 GM/50 ML BAG IVPB SCH (17:37)
[2016-12-08] MEDS: (Lantus) Insulin Glargine, Recombinant SC SCH (21:49)
--- NOTE | 2016-12-08 22:48 | CP.PCM.PN ---
Subjective - Date & Time of Evaluation Date of Evaluation: 12/08/16 Time of Evaluation: 22:48 - Subjective Subjective: AFEBRILE, S/P DEBRIDEMENTAND PULSE IRRIGATION OF LEFT AVF WOUND AGAIN TODAY 12/08 S/P HD 12/06 dENIES SHORTNESS OF BREATH OR COUGH C/O PAIN LEFT UPPER ARM WOUND. DRESSING IN PLACE. BY THE SIDE. COMPLAINS OF CONSTIPATION, NO DIARRHEA. PATIENT PRESENTLY ON IV CIPRO 200 MG EVERY 12 HOURLY SINCE 12/05/16 SECONDARY TO iv ACCESS PROBLEMS. PATIENT ALSO ON IV CEFEPIME 1 G ONCE A DAY DAILY.12/06. OFF VANCOMYCIN.SINCE 12/04/16 ( NOT NOTIFIED BY RN/OR RESIDENTS ) Objective - Vital Signs/Intake and Output Vital Signs (last 24 hours): Temp Pulse Resp BP Pulse Ox 98.1 F 69 20 142/61 97 12/08/16 21:36 12/08/16 21:36 12/08/16 21:36 12/08/16 21:36 12/08/16 21:36 - Medications Medications: Current Medications Allopurinol (Zyloprim) 100 mg PO DAILY [facility] Last Admin: 12/08/16 10:12 Dose: Not Given Clotrimazole (Lotrimin 1%) 0 gm TOP BID [facility] Last Admin: 12/08/16 17:35 Dose: 1 applic Collagenase (Santyl) 30 gm TOP BID [facility] Last Admin: 12/08/16 17:36 Dose: Not Given Docusate Sodium (Colace) 100 mg PO TID [facility] Last Admin: 12/08/16 17:34 Dose: 100 mg Epoetin Maxwell (Procrit) 10,000 unit IV TTS [facility] Last Admin: 12/06/16 09:25 Dose: 10,000 unit Ergocalciferol (Drisdol 50,000 Intl Units Cap) 1 cap PO QWK [facility] Last Admin: 12/06/16 12:33 Dose: 1 cap Escitalopram Oxalate (Lexapro) 10 mg PO DAILY [facility] Last Admin: 12/08/16 10:07 Dose: Not Given Famotidine (Pepcid) 20 mg PO DAILY [facility] Last Admin: 12/08/16 10:08 Dose: Not Given Ferrous Sulfate (Feosol) 325 mg PO DAILY [facility] Last Admin: 12/08/16 09:20 Dose: Not Given Furosemide (Lasix) 40 mg IVP DAILY [facility] Last Admin: 12/08/16 10:06 Dose: 40 mg Heparin Sodium (Porcine) (Heparin) 5,000 units SC Q12 [facility] Last Admin: 12/06/16 21:41 Dose: 5,000 units Hydralazine HCl (Apresoline) 25 mg PO BID [facility] Last Admin: 12/08/16 17:33 Dose: 25 mg Ciprofloxacin (Cipro 200mg/100ml D5w) 100 mls @ 100 mls/hr IVPB Q12H [facility] Last Admin: 12/08/16 18:50 Dose: 100 mls/hr Cefepime HCl (Maxipime Iv 1 Gm Premix) 1 gm in 50 mls @ 100 mls/hr IVPB Q24H [facility] Last Admin: 12/08/16 17:37 Dose: 100 mls/hr Insulin Glargine (Lantus) 55 unit SC [facility] Last Admin: 12/08/16 21:49 Dose: 55 u Insulin Human Regular (Novolin R) 0 unit SC ACHS [facility] PRN Reason: Protocol Last Admin: 12/08/16 21:49 Dose: 4 unit Losartan Potassium (Cozaar) 100 mg PO DAILY [facility] Last Admin: 12/08/16 10:06 Dose: 100 mg Metolazone (Zaroxolyn) 5 mg PO DAILY [facility] Last Admin: 12/08/16 10:06 Dose: 5 mg Mupirocin (Bactroban Ointment) 0 gm TOP BID [facility] Last Admin: 12/08/16 17:34 Dose: Not Given Ondansetron HCl (Zofran Inj) 4 mg IVP Q6H PRN PRN Reason: Nausea/Vomiting Polyethylene Glycol (Miralax) 17 gm PO DAILY [facility] Last Admin: 12/08/16 09:20 Dose: Not Given Rosuvastatin Calcium (Crestor) 10 mg PO HS [facility] Last Admin: 12/08/16 21:48 Dose: 10 mg Sevelamer Carbonate (Renvela) 0.8 gm PO TIDCC [facility] Last Admin: 12/08/16 17:38 Dose: 0.8 gm Vitamin B Complex/Vit C/Folic Acid (Nephro-Alonzo) 1 tab PO DAILY [facility] Last Admin: 12/08/16 09:20 Dose: Not Given - Labs Labs: 12/08/16 07:15 12/08/16 07:15 PT 11.9 SECONDS (9.7-12.2) 12/03/16 10:00 INR 1.1 12/03/16 10:00 APTT 34 SECONDS (21-34) 12/03/16 10:00 - Constitutional Appears: No Acute Distress - Head Exam Head Exam: NORMAL INSPECTION - Eye Exam Eye Exam: EOMI, PERRL - ENT Exam ENT Exam: Normal Oropharynx - Neck Exam Neck Exam: Normal Inspection - Respiratory Exam Respiratory Exam: Clear to Ausculation Bilateral - Cardiovascular Exam Cardiovascular Exam: REGULAR RHYTHM, +S1, +S2 - GI/Abdominal Exam GI & Abdominal Exam: Soft, Normal Bowel Sounds. absent: Tenderness - Extremities Exam Extremities Exam: Pedal Edema (B/L ANTERIOR NIÑO NECROBIOSIS LIPOIDICA/ - ERYTHEMATOUS RAISED MACULES). absent: Calf Tenderness - Neurological Exam Neurological Exam: Awake, CN II-XII Intact, Oriented x3 - Psychiatric Exam Psychiatric exam: Normal Mood - Skin Skin Exam: Normal Color, Warm Assessment and Plan (1) Wound infection after surgery Assessment & Plan: PER SURGERY. LAST WOUND CULTURE 12/03 [facility]- [facility]. cONTINUE iv cIPRO/AND iv CEFEPIME ORDERED. fOLLOW-UP CULTURES TO ADJUST ANTIBIOTICS. Status: Acute (2) Cellulitis Status: Acute (3) Foot ulcer Status: Acute (4) Peripheral vascular disease Status: Acute (5) Anemia, chronic disease Assessment & Plan: h&h 10.5/33.5 PLATELETS 145. wbc 11.3. Status: Chronic (6) CKD (chronic kidney disease) stage 3, GFR 30-59 ml/min Assessment & Plan: PATIENT ON HEMODIALYSIS TTS. Status: Chronic (7) DM2 (diabetes mellitus, type 2) Status: Chronic
--- NOTE | 2016-12-08 23:44 | CP.PCM.PN ---
Subjective - Date & Time of Evaluation Date of Evaluation: 12/08/16 Time of Evaluation: 15:00 - Subjective Subjective: SEEN ON RENAL F/U ALL ABOVE EMR REVIEWED C/O LOCAL PAIN ON HD T T S ON IVAB FOR SEPSIS Objective - Vital Signs/Intake and Output Vital Signs (last 24 hours): Temp Pulse Resp BP Pulse Ox 98.1 F 69 20 142/61 97 12/08/16 21:36 12/08/16 21:36 12/08/16 21:36 12/08/16 21:36 12/08/16 21:36 - Medications Medications: Current Medications Allopurinol (Zyloprim) 100 mg PO DAILY [facility] Last Admin: 12/08/16 10:12 Dose: Not Given Clotrimazole (Lotrimin 1%) 0 gm TOP BID [facility] Last Admin: 12/08/16 17:35 Dose: 1 applic Collagenase (Santyl) 30 gm TOP BID [facility] Last Admin: 12/08/16 17:36 Dose: Not Given Docusate Sodium (Colace) 100 mg PO TID [facility] Last Admin: 12/08/16 17:34 Dose: 100 mg Epoetin Maxwell (Procrit) 10,000 unit IV TTS [facility] Last Admin: 12/06/16 09:25 Dose: 10,000 unit Ergocalciferol (Drisdol 50,000 Intl Units Cap) 1 cap PO QWK [facility] Last Admin: 12/06/16 12:33 Dose: 1 cap Escitalopram Oxalate (Lexapro) 10 mg PO DAILY [facility] Last Admin: 12/08/16 10:07 Dose: Not Given Famotidine (Pepcid) 20 mg PO DAILY [facility] Last Admin: 12/08/16 10:08 Dose: Not Given Ferrous Sulfate (Feosol) 325 mg PO DAILY [facility] Last Admin: 12/08/16 09:20 Dose: Not Given Furosemide (Lasix) 40 mg IVP DAILY [facility] Last Admin: 12/08/16 10:06 Dose: 40 mg Heparin Sodium (Porcine) (Heparin) 5,000 units SC Q12 [facility] Last Admin: 12/06/16 21:41 Dose: 5,000 units Hydralazine HCl (Apresoline) 25 mg PO BID [facility] Last Admin: 12/08/16 17:33 Dose: 25 mg Ciprofloxacin (Cipro 200mg/100ml D5w) 100 mls @ 100 mls/hr IVPB Q12H [facility] Last Admin: 12/08/16 18:50 Dose: 100 mls/hr Cefepime HCl (Maxipime Iv 1 Gm Premix) 1 gm in 50 mls @ 100 mls/hr IVPB Q24H [facility] Last Admin: 12/08/16 17:37 Dose: 100 mls/hr Insulin Glargine (Lantus) 55 unit SC HS [facility] Last Admin: 12/08/16 21:49 Dose: 55 u Insulin Human Regular (Novolin R) 0 unit SC ACHS [facility] PRN Reason: Protocol Last Admin: 12/08/16 21:49 Dose: 4 unit Losartan Potassium (Cozaar) 100 mg PO DAILY [facility] Last Admin: 12/08/16 10:06 Dose: 100 mg Metolazone (Zaroxolyn) 5 mg PO DAILY [facility] Last Admin: 12/08/16 10:06 Dose: 5 mg Mupirocin (Bactroban Ointment) 0 gm TOP BID [facility] Last Admin: 12/08/16 17:34 Dose: Not Given Ondansetron HCl (Zofran Inj) 4 mg IVP Q6H PRN PRN Reason: Nausea/Vomiting Polyethylene Glycol (Miralax) 17 gm PO DAILY [facility] Last Admin: 12/08/16 09:20 Dose: Not Given Rosuvastatin Calcium (Crestor) 10 mg PO HS [facility] Last Admin: 12/08/16 21:48 Dose: 10 mg Sevelamer Carbonate (Renvela) 0.8 gm PO TIDCC [facility] Last Admin: 12/08/16 17:38 Dose: 0.8 gm Vitamin B Complex/Vit C/Folic Acid (Nephro-Alonzo) 1 tab PO DAILY [facility] Last Admin: 12/08/16 09:20 Dose: Not Given - Labs Labs: 12/08/16 07:15 12/08/16 07:15 PT 11.9 SECONDS (9.7-12.2) 12/03/16 10:00 INR 1.1 12/03/16 10:00 APTT 34 SECONDS (21-34) 12/03/16 10:00 Assessment and Plan - Assessment and Plan (Free Text) Assessment: ESRD ON HD T T S .. TO BE C/O ANEMIA OF CKD .. H/H STABLE SEPSIS ON IVAB P : C/O CURRENT CARE
[2016-12-09] MEDS ORDERED: (Novolog) Insulin Aspart, Recombinant 100 u/ml 10 ml vial SC STA (02:21)
[2016-12-09] MEDS: Ciprofloxacin 200mg/100ml D5W 100 ML IVPB SCH ×2 (06:00→18:33)
--- NOTE | 2016-12-09 07:15 | CP.PCM.PN ---
Subjective - Date & Time of Evaluation Date of Evaluation: 12/09/16 Time of Evaluation: 07:12 - Subjective Subjective: PGY-1 note for medicine, Dr. Myrick Pt seen and examined at bedside. Nursing reports no acute events overnight. Pt reports feeling better than yesterday. She is for hemodialysis this AM. Patient states pain at AV site is improved today. She states she was able to tolerate diet last evening, without nausea. She denies subjective fevers or chills, chest pain, palpitations, nausea, vomiting, diarrhea or paresthesias at this time. Objective - Vital Signs/Intake and Output Vital Signs (last 24 hours): Temp Pulse Resp BP Pulse Ox 98.1 F 74 20 155/56 H 95 12/09/16 00:00 12/09/16 00:00 12/09/16 00:00 12/09/16 00:00 12/09/16 00:00 Intake and Output: 12/09/16 12/09/16 06:59 18:59 Intake Total 340 Balance 340 - Medications Medications: Current Medications Allopurinol (Zyloprim) 100 mg PO DAILY [facility] Last Admin: 12/08/16 10:12 Dose: Not Given Clotrimazole (Lotrimin 1%) 0 gm TOP BID [facility] Last Admin: 12/08/16 17:35 Dose: 1 applic Collagenase (Santyl) 30 gm TOP BID [facility] Last Admin: 12/08/16 17:36 Dose: Not Given Docusate Sodium (Colace) 100 mg PO TID [facility] Last Admin: 12/08/16 17:34 Dose: 100 mg Epoetin Maxwell (Procrit) 10,000 unit IV TTS [facility] Last Admin: 12/06/16 09:25 Dose: 10,000 unit Ergocalciferol (Drisdol 50,000 Intl Units Cap) 1 cap PO QWK [facility] Last Admin: 12/06/16 12:33 Dose: 1 cap Escitalopram Oxalate (Lexapro) 10 mg PO DAILY [facility] Last Admin: 12/08/16 10:07 Dose: Not Given Famotidine (Pepcid) 20 mg PO DAILY [facility] Last Admin: 12/08/16 10:08 Dose: Not Given Ferrous Sulfate (Feosol) 325 mg PO DAILY [facility] Last Admin: 12/08/16 09:20 Dose: Not Given Furosemide (Lasix) 40 mg IVP DAILY [facility] Last Admin: 12/08/16 10:06 Dose: 40 mg Heparin Sodium (Porcine) (Heparin) 5,000 units SC Q12 [facility] Last Admin: 12/06/16 21:41 Dose: 5,000 units Hydralazine HCl (Apresoline) 25 mg PO BID [facility] Last Admin: 12/08/16 17:33 Dose: 25 mg Ciprofloxacin (Cipro 200mg/100ml D5w) 100 mls @ 100 mls/hr IVPB Q12H [facility] Last Admin: 12/09/16 06:00 Dose: 100 mls/hr Cefepime HCl (Maxipime Iv 1 Gm Premix) 1 gm in 50 mls @ 100 mls/hr IVPB Q24H [facility] Last Admin: 12/08/16 17:37 Dose: 100 mls/hr Insulin Glargine (Lantus) 55 unit SC [facility] Last Admin: 12/08/16 21:49 Dose: 55 u Insulin Human Regular (Novolin R) 0 unit SC ACHS [facility] PRN Reason: Protocol Last Admin: 12/08/16 21:49 Dose: 4 unit Losartan Potassium (Cozaar) 100 mg PO DAILY [facility] Last Admin: 12/08/16 10:06 Dose: 100 mg Metolazone (Zaroxolyn) 5 mg PO DAILY [facility] Last Admin: 12/08/16 10:06 Dose: 5 mg Mupirocin (Bactroban Ointment) 0 gm TOP BID [facility] Last Admin: 12/08/16 17:34 Dose: Not Given Ondansetron HCl (Zofran Inj) 4 mg IVP Q6H PRN PRN Reason: Nausea/Vomiting Polyethylene Glycol (Miralax) 17 gm PO DAILY [facility] Last Admin: 12/08/16 09:20 Dose: Not Given Rosuvastatin Calcium (Crestor) 10 mg PO HS [facility] Last Admin: 12/08/16 21:48 Dose: 10 mg Sevelamer Carbonate (Renvela) 0.8 gm PO TIDCC [facility] Last Admin: 12/08/16 17:38 Dose: 0.8 gm Vitamin B Complex/Vit C/Folic Acid (Nephro-Alonzo) 1 tab PO DAILY [facility] Last Admin: 12/08/16 09:20 Dose: Not Given - Labs Labs: 12/08/16 07:15 12/08/16 07:15 PT 11.9 SECONDS (9.7-12.2) 12/03/16 10:00 INR 1.1 12/03/16 10:00 APTT 34 SECONDS (21-34) 12/03/16 10:00 - Additional Findings Additional findings: - Constitutional Appears: Non-toxic, No Acute Distress - Head Exam Head Exam: ATRAUMATIC, NORMAL INSPECTION, NORMOCEPHALIC - Eye Exam Eye Exam: EOMI, Normal appearance, PERRL Pupil Exam: NORMAL ACCOMODATION, PERRL - ENT Exam ENT Exam: Mucous Membranes Moist, Normal Exam - Neck Exam Neck Exam: Full ROM - Respiratory Exam Respiratory Exam: NORMAL BREATHING PATTERN. absent: Wheezes - Cardiovascular Exam Cardiovascular Exam: +S1, +S2 - GI/Abdominal Exam GI & Abdominal Exam: Soft, Normal Bowel Sounds, no tenderness - Extremities Exam Extremities Exam: Full ROM, Pedal Edema Additional comments: On left arm at AV site, bandage is freshly changed bilateral cellulitis on the shins left arm incision wrapped/ mildly erythematous left foot ulcer wrapped- c/d/i Assessment and Plan - Assessment and Plan (Free Text) Plan: Disposition: Pt marked for discharge to [facility] when bed available. Per Dr. Meng's instruction, pt will continue on Cipro x 2 weeks at [facility]. Cefepime will be discontinued. Wound infection after surgery Assessment and Plan: Pt afebrile overnight Lt arm wound culture (12/03/16): MSSA - Prior left arm culture (11/28/16): Serratia marcesens, MSSA Cefepime 1 gm Q24 (started 12/06) Cipro 200 mg IV q 12 (started 12/05) US LE dopplers (11/29/16) negative ID consult, Dr. Meng, help appreciated blood cultures negative x 5 days Left heel ulcer Assessment and Plan: Podiatry consult, Dr. Stevens, help appreciated Seen by podiatry- patient refused dressing changes on 12/06 Santyl BID CKD (chronic kidney disease) stage 3, GFR 30-59 ml/min Assessment and Plan: HD scheduled TuThSa Continue home med: sevelamer 0.8g TIDCC Fluid restriction Status: Chronic Hyperphosphatemia 6.1 on AM labs Start phos-lo 667 BIDAC Monitor Lower Extremity Edema 11/29 LE dopplers: negative R/o obstruction-- 12/02: abdominal u/s: diffuse fatty infiltration of the liver. minimal hepatomegaly. bilateral renal hyperechogenicity-medical renal disease inferred, 5mm midpole nonobstructing right renal calculus-unchanged 12/02: pelvic u/s: markedly limited exam- no distended bladder to provide for sonographic window to visualize pelvic anatomy Anemia, chronic disease Assessment and Plan: Hgb stable 12/03: Patient transfused 2 units PRBCs overnight, HgB increased to 9 Continue to monitor- May benefit from additional transfusions ferrous sulfate 325mg po daily ferrlecit 125 mg daily Status: Chronic Hypertension Assessment and Plan: Continue home med: hydralazine decreased to 25mg po bid losartan 100mg po daily Status: Chronic Diabetes Assessment and Plan: accuchecks ISS Lantus 55 u sc daily (changed from 40 on 12/05) rosuvastatin 10mg po hs Status: Acute Constipation Assessment and Plan: Resolved Patient has had multiple bms continue colace 100 mg po TID Prophylactic measure Assessment and Plan: SCDs heparin 5000u sc q12- held prior to procedure pepcid 20mg daily (renally dosed) renal diet Status: Acute
[2016-12-09 07:29] LABS: BASO # 0.2 K/uL (0.0-0.2); BASO % 1.2 % (0.0-2.0); EOS # 0.6 K/uL (0.0-0.7); EOS % 4.8 % (0.0-4.0); HEMOGLOBIN 10.1 g/dL (11.0-16.0); LYMPH # 1.6 K/uL (1.0-4.3); LYMPH % 11.9 % (20.0-40.0); MEAN CELL VOLUME 96.1 fL (81.0-99.0); MEAN CORPUSCULAR HEMOGLOBIN 29.9 pg (27.0-31.0); MEAN CORPUSCULAR HGB CONC 31.1 g/dL (33.0-37.0); MEAN PLATELET VOLUME 10.1 fL (7.2-11.7); MONO # 1.6 K/uL (0.0-0.8); MONO % 11.9 % (0.0-10.0); NEUT # 9.4 K/uL (1.8-7.0); NEUT % 70.2 % (50.0-75.0); NRBC % 0.1 % (0.0-2.0); RBC 3.38 Mil/uL (3.80-5.20); RED CELL DISTRIBUTION WIDTH 19.2 % (11.5-14.5); WHITE BLOOD COUNT 13.3 K/uL (4.8-10.8)
[2016-12-09 07:40] LABS: ALBUMIN 3.2 g/dL (3.5-5.0)
[2016-12-09 07:43] LABS: CALCIUM 8.9 mg/dl (8.6-10.4)
[2016-12-09 07:44] LABS: ALB/GLOB RATIO 1.1 (1.0-2.1); MAGNESIUM 2.4 mg/dL (1.6-2.3)
[2016-12-09] MEDS: Sevelamer Carb 0.8 gm/Packet PO SCH ×3 (08:30→17:33)
[2016-12-09] MEDS: (Novolin R) Insulin Human Regular 100 units/ml vial SC SCH ×4 (08:35→21:23)
[2016-12-09] MEDS: POLYETHYLENE GLYCOL 3350 17 GM/Dose PACKET PO SCH (09:55)
[2016-12-09] MEDS: Multivitamin Vitamin B Complex (Nephro-Vite) Tab PO SCH (09:56)
[2016-12-09] MEDS: metOLazone 5 MG TAB PO SCH (09:56)
--- NOTE | 2016-12-09 10:03 | CP.PCM.PN ---
Subjective - Date & Time of Evaluation Date of Evaluation: 12/09/16 Time of Evaluation: 10:02 - Subjective Subjective: 71 y/o female seen at bedside today regarding left foot lateral and plantar ulcerations. Pt is AAOx3 and is in NAD. Pt denies of any acute overnight events. Seen resting comfortably at bedside with visitor present at time of visit. Denies any acute events overnight. Does complain of some mild foot pain today. Denies f/n/v/c/sob/cp at this time. Objective - Vital Signs/Intake and Output Vital Signs (last 24 hours): Temp Pulse Resp BP Pulse Ox 97.9 F 71 16 147/55 L 97 12/09/16 09:05 12/09/16 09:05 12/09/16 09:05 12/09/16 09:20 12/09/16 09:05 Intake and Output: 12/09/16 12/09/16 06:59 18:59 Intake Total 340 Balance 340 - Medications Medications: Current Medications Allopurinol (Zyloprim) 100 mg PO DAILY [facility] Last Admin: 12/09/16 09:56 Dose: Not Given Clotrimazole (Lotrimin 1%) 0 gm TOP BID [facility] Last Admin: 12/08/16 17:35 Dose: 1 applic Collagenase (Santyl) 30 gm TOP BID [facility] Last Admin: 12/08/16 17:36 Dose: Not Given Docusate Sodium (Colace) 100 mg PO TID [facility] Last Admin: 12/09/16 09:54 Dose: Not Given Epoetin Maxwell (Procrit) 10,000 unit IV TTS [facility] Last Admin: 12/06/16 09:25 Dose: 10,000 unit Ergocalciferol (Drisdol 50,000 Intl Units Cap) 1 cap PO QWK [facility] Last Admin: 12/06/16 12:33 Dose: 1 cap Escitalopram Oxalate (Lexapro) 10 mg PO DAILY [facility] Last Admin: 12/09/16 09:55 Dose: Not Given Famotidine (Pepcid) 20 mg PO DAILY [facility] Last Admin: 12/09/16 09:56 Dose: Not Given Ferrous Sulfate (Feosol) 325 mg PO DAILY [facility] Last Admin: 12/09/16 09:55 Dose: Not Given Furosemide (Lasix) 40 mg IVP DAILY [facility] Last Admin: 12/09/16 09:55 Dose: Not Given Heparin Sodium (Porcine) (Heparin) 5,000 units SC Q12 [facility] Last Admin: 12/06/16 21:41 Dose: 5,000 units Hydralazine HCl (Apresoline) 25 mg PO BID [facility] Last Admin: 12/09/16 09:54 Dose: Not Given Ciprofloxacin (Cipro 200mg/100ml D5w) 100 mls @ 100 mls/hr IVPB Q12H [facility] Last Admin: 12/09/16 06:00 Dose: 100 mls/hr Cefepime HCl (Maxipime Iv 1 Gm Premix) 1 gm in 50 mls @ 100 mls/hr IVPB Q24H [facility] Last Admin: 12/08/16 17:37 Dose: 100 mls/hr Insulin Glargine (Lantus) [address] [facility] Last Admin: 12/08/16 21:49 Dose: 55 u Insulin Human Regular (Novolin R) 0 unit SC ACHS [facility] PRN Reason: Protocol Last Admin: 12/09/16 08:35 Dose: 4 unit Losartan Potassium (Cozaar) 100 mg PO DAILY [facility] Last Admin: 12/09/16 09:54 Dose: Not Given Metolazone (Zaroxolyn) 5 mg PO DAILY [facility] Last Admin: 12/09/16 09:56 Dose: Not Given Mupirocin (Bactroban Ointment) 0 gm TOP BID [facility] Last Admin: 12/08/16 17:34 Dose: Not Given Ondansetron HCl (Zofran Inj) 4 mg IVP Q6H PRN PRN Reason: Nausea/Vomiting Polyethylene Glycol (Miralax) 17 gm PO DAILY [facility] Last Admin: 12/09/16 09:55 Dose: Not Given Rosuvastatin Calcium (Crestor) 10 mg PO HS [facility] Last Admin: 12/08/16 21:48 Dose: 10 mg Sevelamer Carbonate (Renvela) 0.8 gm PO TIDCC [facility] Last Admin: 12/09/16 08:30 Dose: 0.8 gm Vitamin B Complex/Vit C/Folic Acid (Nephro-Alonzo) 1 tab PO DAILY [facility] Last Admin: 12/09/16 09:56 Dose: Not Given - Labs Labs: 12/09/16 07:12 12/09/16 07:12 PT 11.9 SECONDS (9.7-12.2) 12/03/16 10:00 INR 1.1 12/03/16 10:00 APTT 34 SECONDS (21-34) 12/03/16 10:00 - Constitutional Appears: Well, Non-toxic, No Acute Distress - Extremities Exam Additional comments: VASC: DP/PT pulses palpable 1/4 b/l. CFT < 3 seconds to all digits, temperature gradient is warm to cool. Moderate pitting edema noted to b/l lower extremities DERM: Velazco stage 1 ulceration seen at lateral and plantar heel on left foot. No purulent drainage, malodor, undermining, tracking, periwound erythema or other clinical signs of infection noted to the area. Hyperkeratotic periwound area noted with mild maceration seen at plantar aspect of wound. Erythematous skin changes noted to anterior shins b/l (possible hemosiderin deposition). No other open lesions noted at this time. NEURO: Epicritic and protective sensation grossly intact b/l ORTHO: Mild pain on palpation noted to ulcer site of left foot - Neurological Exam Neurological Exam: Alert, Awake, Oriented x3 - Psychiatric Exam Psychiatric exam: Normal Affect Assessment and Plan - Assessment and Plan (Free Text) Assessment: 71 year old female seen at bedside with left foot 2/2 DM, ESRD, CHF and CKD Plan: Pt S&E at bedside Plan discussed in detail with attending Dr. Molina Labs and vitals reviewed (afebrile), WBC 13.3 CUCO/PVR 10/22/16: left: .35, right .98 left foot heel ulcer cleansed with sterile saline, dressed with Santyl, 4x4 gauze and kerlix cont. wearing offloading boots while in bed Continue with abx per ID Podiatry will continue to follow while in house
[2016-12-09] MEDS: Epoetin Alfa 10,000 unit/ml Dialysis IV SCH (11:44)
--- NOTE | 2016-12-09 12:15 | CP.PCM.PN ---
Subjective - Date & Time of Evaluation Date of Evaluation: 12/09/16 Time of Evaluation: 12:14 - Subjective Subjective: AFEBRILE, S/P DEBRIDEMENTAND PULSE IRRIGATION OF LEFT AVF WOUND 12/08 S/P HD 12/09/16 C/O PAIN LEFT UPPER ARM WOUND. DRESSING IN PLACE. CASE DISCUSSED W RESIDENT DR LURICH. PT FOR [facility] . CONTINUE IV CIPRO 200MG IV Q 12HRLY X 2WKS. ADD IV VANCOMYCIN 1GM IV POST HD TTS X 6 DOSES (2WKS TO COVER FOR AVF - VASCULAR INFECTION ) PT HAS RENAL FAILURE AND ON HD TTS DC IV CEFEPIME ON DC Objective - Vital Signs/Intake and Output Vital Signs (last 24 hours): Temp Pulse Resp BP Pulse Ox 97.9 F 71 16 133/55 L 97 12/09/16 09:05 12/09/16 09:05 12/09/16 09:05 12/09/16 11:22 12/09/16 09:05 Intake and Output: 12/09/16 12/09/16 06:59 18:59 Intake Total 340 Balance 340 - Medications Medications: Current Medications Allopurinol (Zyloprim) 100 mg PO DAILY [facility] Last Admin: 12/09/16 09:56 Dose: Not Given Clotrimazole (Lotrimin 1%) 0 gm TOP BID [facility] Last Admin: 12/08/16 17:35 Dose: 1 applic Collagenase (Santyl) 30 gm TOP BID [facility] Last Admin: 12/08/16 17:36 Dose: Not Given Docusate Sodium (Colace) 100 mg PO TID [facility] Last Admin: 12/09/16 09:54 Dose: Not Given Epoetin Maxwell (Procrit) 10,000 unit IV TTS [facility] Last Admin: 12/09/16 11:44 Dose: 10,000 unit Ergocalciferol (Drisdol 50,000 Intl Units Cap) 1 cap PO QWK [facility] Last Admin: 12/06/16 12:33 Dose: 1 cap Escitalopram Oxalate (Lexapro) 10 mg PO DAILY [facility] Last Admin: 12/09/16 09:55 Dose: Not Given Famotidine (Pepcid) 20 mg PO DAILY [facility] Last Admin: 12/09/16 09:56 Dose: Not Given Ferrous Sulfate (Feosol) 325 mg PO DAILY [facility] Last Admin: 12/09/16 09:55 Dose: Not Given Furosemide (Lasix) 40 mg IVP DAILY [facility] Last Admin: 12/09/16 09:55 Dose: Not Given Heparin Sodium (Porcine) (Heparin) 5,000 units SC Q12 [facility] Last Admin: 12/06/16 21:41 Dose: 5,000 units Hydralazine HCl (Apresoline) 25 mg PO BID [facility] Last Admin: 12/09/16 09:54 Dose: Not Given Ciprofloxacin (Cipro 200mg/100ml D5w) 100 mls @ 100 mls/hr IVPB Q12H [facility] Last Admin: 12/09/16 06:00 Dose: 100 mls/hr Cefepime HCl (Maxipime Iv 1 Gm Premix) 1 gm in 50 mls @ 100 mls/hr IVPB Q24H [facility] Last Admin: 12/08/16 17:37 Dose: 100 mls/hr Insulin Glargine (Lantus) 55 unit SC [facility] Last Admin: 12/08/16 21:49 Dose: 55 u Insulin Human Regular (Novolin R) 0 unit SC [facility] PRN Reason: Protocol Last Admin: 12/09/16 08:35 Dose: 4 unit Losartan Potassium (Cozaar) 100 mg PO DAILY [facility] Last Admin: 12/09/16 09:54 Dose: Not Given Metolazone (Zaroxolyn) 5 mg PO DAILY [facility] Last Admin: 12/09/16 09:56 Dose: Not Given Mupirocin (Bactroban Ointment) 0 gm TOP BID [facility] Last Admin: 12/08/16 17:34 Dose: Not Given Ondansetron HCl (Zofran Inj) 4 mg IVP Q6H PRN PRN Reason: Nausea/Vomiting Polyethylene Glycol (Miralax) 17 gm PO DAILY [facility] Last Admin: 12/09/16 09:55 Dose: Not Given Rosuvastatin Calcium (Crestor) 10 mg PO HS [facility] Last Admin: 12/08/16 21:48 Dose: 10 mg Sevelamer Carbonate (Renvela) 0.8 gm PO TIDCC [facility] Last Admin: 12/09/16 08:30 Dose: 0.8 gm Vitamin B Complex/Vit C/Folic Acid (Nephro-Alonzo) 1 tab PO DAILY [facility] Last Admin: 12/09/16 09:56 Dose: Not Given - Labs Labs: 12/09/16 07:12 12/09/16 07:12 PT 11.9 SECONDS (9.7-12.2) 12/03/16 10:00 INR 1.1 12/03/16 10:00 APTT 34 SECONDS (21-34) 12/03/16 10:00 - Constitutional Appears: No Acute Distress - Head Exam Head Exam: NORMAL INSPECTION - Eye Exam Eye Exam: EOMI, PERRL. absent: Scleral icterus - ENT Exam ENT Exam: Normal Oropharynx - Neck Exam Neck Exam: Normal Inspection - Respiratory Exam Respiratory Exam: Clear to Ausculation Bilateral, NORMAL BREATHING PATTERN - Cardiovascular Exam Cardiovascular Exam: REGULAR RHYTHM, +S1, +S2 - GI/Abdominal Exam GI & Abdominal Exam: Soft, Normal Bowel Sounds. absent: Tenderness - Extremities Exam Extremities Exam: Pedal Edema (IMPROVING LE CELLULITES). absent: Calf Tenderness - Neurological Exam Neurological Exam: Awake, CN II-XII Intact, Oriented x3 - Psychiatric Exam Psychiatric exam: Normal Mood - Skin Skin Exam: Normal Color, Warm Assessment and Plan (1) Wound infection after surgery Assessment & Plan: LAST WOUND CULTURE 12/03 [facility]URE[facility]- MSSA. CONTINUE iv CIPRO 200MG IV Q 12HRLY X2WKS MORE ON DC TO [facility] START IV VANCOMYCIN 1GM S/P HD TTS X 6 DOSES ON DC TO [facility]. WILL DISCUSS WITH DR YI. DC IV CEFEPIME ON DC fOLLOW-UP CULTURES TO ADJUST ANTIBIOTICS. PER STAFF DC HELD IN VIEW OF DEBRIDEMENT IN AM. Status: Acute (2) Cellulitis Status: Acute (3) Foot ulcer Status: Acute (4) Peripheral vascular disease Status: Acute (5) Anemia, chronic disease Status: Chronic (6) CKD (chronic kidney disease) stage 3, GFR 30-59 ml/min Status: Chronic (7) DM2 (diabetes mellitus, type 2) Status: Chronic
--- NOTE | 2016-12-09 12:36 | CP.PCM.DIS ---
Provider - Provider Date of Admission: 11/28/16 14:52 Attending physician: Benson Myrick Jr, MD Hospital Course - Lab Results Lab Results: Micro Results 12/03/16 18:30 Arm - Left Gram Stain - Final 12/03/16 18:30 Arm - Left Wound Culture - Final Staphylococcus Aureus 11/28/16 15:00 Arm - Left Gram Stain - Final 11/28/16 15:00 Arm - Left Wound Culture - Final Serratia Marcescens Staphylococcus Aureus Most Recent Lab Values WBC 13.3 K/uL (4.8-10.8) H 12/09/16 07:12 RBC 3.38 Mil/uL (3.80-5.20) L 12/09/16 07:12 Hgb 10.1 g/dL (11.0-16.0) L 12/09/16 07:12 Hct 32.5 % (34.0-47.0) L 12/09/16 07:12 MCV 96.1 fL (81.0-99.0) 12/09/16 07:12 MCH 29.9 pg (27.0-31.0) 12/09/16 07:12 MCHC 31.1 g/dL (33.0-37.0) L 12/09/16 07:12 RDW 19.2 % (11.5-14.5) H 12/09/16 07:12 Plt Count 172 K/uL (130-400) 12/09/16 07:12 MPV 10.1 fL (7.2-11.7) 12/09/16 07:12 Neut % (Auto) 70.2 % (50.0-75.0) 12/09/16 07:12 Lymph % (Auto) 11.9 % (20.0-40.0) L 12/09/16 07:12 [place] % (Auto) 11.9 % (0.0-10.0) H 12/09/16 07:12 Eos % (Auto) 4.8 % (0.0-4.0) H 12/09/16 07:12 Baso % (Auto) 1.2 % (0.0-2.0) 12/09/16 07:12 Neut # 9.4 K/uL (1.8-7.0) H 12/09/16 07:12 Lymph # 1.6 K/uL (1.0-4.3) 12/09/16 07:12 [place] # 1.6 K/uL (0.0-0.8) H 12/09/16 07:12 Eos # 0.6 K/uL (0.0-0.7) 12/09/16 07:12 Baso # 0.2 K/uL (0.0-0.2) 12/09/16 07:12 PT 11.9 SECONDS (9.7-12.2) 12/03/16 10:00 INR 1.1 12/03/16 10:00 APTT 34 SECONDS (21-34) 12/03/16 10:00 pO2 39 mm/Hg (30-55) 11/28/16 14:30 VBG pH 7.50 (7.32-7.43) H 11/28/16 14:30 VBG pCO2 47 mmHg (40-60) 11/28/16 14:30 VBG HCO3 33.6 mmol/L 11/28/16 14:30 VBG Total CO2 38.1 mmol/L (22-28) H 11/28/16 14:30 VBG O2 Sat (Calc) 78.7 % (40-65) H 11/28/16 14:30 VBG Base Excess 11.8 mmol/L (0.0-2.0) H 11/28/16 14:30 VBG Potassium 3.4 mmol/L (3.6-5.2) L 11/28/16 14:30 Sodium 138.0 mmol/l (132-148) 11/28/16 14:30 Chloride 105.0 mmol/L (98-107) 11/28/16 14:30 Glucose 59 mg/dl (65-105) L 11/28/16 14:30 Lactate 1.1 mmol/L (0.7-2.1) 11/28/16 14:30 Sodium 132 mmol/L (132-148) 12/09/16 07:12 Potassium 4.2 mmol/L (3.6-5.2) 12/09/16 07:12 Chloride 89 mmol/L (98-107) L 12/09/16 07:12 Carbon Dioxide 24 mmol/L (22-30) 12/09/16 07:12 Anion Gap 23 (10-20) H 12/09/16 07:12 BUN 57 mg/dL (7-17) H 12/09/16 07:12 Creatinine 5.8 MG/DL (0.7-1.2) H 12/09/16 07:12 Est GFR ( Amer) 9 12/09/16 07:12 Est GFR (Non-Af Amer) 7 12/09/16 07:12 POC Glucose (mg/dL) 178 mg/dL (65-110) H 12/09/16 11:20 Random Glucose 234 mg/dL (65-105) H 12/09/16 07:12 Calcium 8.9 mg/dl (8.6-10.4) 12/09/16 07:12 Phosphorus 6.1 mg/dL (2.5-4.5) H 12/09/16 07:12 Magnesium 2.4 mg/dL (1.6-2.3) H 12/09/16 07:12 Total Bilirubin 0.6 mg/dL (0.2-1.3) 12/09/16 07:12 AST 18 U/L (14-36) 12/09/16 07:12 ALT 24 U/L (9-52) 12/09/16 07:12 Alkaline Phosphatase 104 U/L (38-126) 12/09/16 07:12 Total Protein 6.1 g/dL (6.3-8.3) L 12/09/16 07:12 Albumin 3.2 g/dL (3.5-5.0) L 12/09/16 07:12 Globulin 2.8 gm/dL (2.2-3.9) 12/09/16 07:12 Albumin/Globulin Ratio 1.1 (1.0-2.1) 12/09/16 07:12 Venous Blood Potassium 3.4 mmol/L (3.6-5.2) L 11/28/16 14:30 Random Vancomycin 10.25 ug/mL 11/29/16 16:00 Hep Bs Antigen Negative (NEGATIVE) 11/29/16 16:00 Hep Bs Antibody Negative (NEGATIVE) 11/29/16 16:00 Hep B Core IgM Ab Negative (NEGATIVE) 11/29/16 16:00 Blood Type B POSITIVE 12/02/16 19:48 Antibody Screen Negative 12/02/16 19:48 Discharge Exam - Head Exam Head Exam: NORMAL INSPECTION Discharge Plan - Follow Up Plan Condition: STABLE Disposition: HOME/ ROUTINE Additional Instructions: Patient stable for discharge per Dr. Myrick. She has been prescribed the following medications to continue at [facility] See below for full reconcilliation. Patient will follow up with PMD within one week. She should also make an appointment to follow up with specialist, Dr. Ambrose to continue evaluation of chronic kidney disease. She is advised to return to the emergency department if symptoms return or worsen. These instructions were given to the pt in Panamanian. Patient expressed verbal understanding of these instructions. Prescribed medications: IV antibiotics: Cipro 200mg IV Q12H x 2 weeks (28 total doses, last dose 12/23/16) Santly 30gm TOPICAL BID Mupirocin TOPICAL BID Colace 100mg PO TID Allopurinol 100mg PO Daily Lexapro 10mg by mouth once daily Lipitor 20mg PO HS Lantus 55 units SC HS Insulin Sliding Scale- Novolin R Procrit 10,000 units IV T//Thu with dialysis Feosol 325mg PO Daily Renvela 0.8 gm one tab by mouth three times daily with meals Nephro-kevin 1 tab by mouth daily Lasix 40mg IV Daily Metolazone 5mg PO daily Ergocalciferol 01148 units 1 tab PO Qwkly (every thursday) x 3 months Hydralazine 25mg PO BID Losartan 100mg PO daily
[2016-12-09] MEDS: Collagenase 250 Units/gm Ointment(30 gm) TOP SCH ×2 (12:54→17:33)
[2016-12-09] MEDS: Clotrimazole 1% Cream(30 gm) TOP SCH ×2 (12:54→17:25)
[2016-12-09] MEDS: Cefepime IV 1 gm in Dextrose 1 GM/50 ML BAG IVPB SCH (17:34)
[2016-12-09] MEDS: (Lantus) Insulin Glargine, Recombinant SC SCH (21:21)
--- NOTE | 2016-12-10 06:28 | CP.PCM.PN ---
Subjective - Date & Time of Evaluation Date of Evaluation: 12/10/16 Time of Evaluation: 06:25 - Subjective Subjective: PGY-1 note for medicine, Dr. Myrick Pt seen and examined at bedside. Nursing reports no acute events overnight. Pt NPO for wound debridement with Dr. Melendez today. Plan is for her to be discharged after the procedure to [facility]. Pt reports feeling anxious about the procedure but denies chest pain, SOB, abd pain, nausea or vomiting. Objective - Vital Signs/Intake and Output Vital Signs (last 24 hours): Temp Pulse Resp BP Pulse Ox 98.4 F 66 20 161/57 H 98 12/10/16 00:00 12/10/16 00:00 12/10/16 00:00 12/10/16 00:00 12/10/16 00:00 Intake and Output: 12/09/16 12/10/16 18:59 06:59 Intake Total 240 Balance 240 - Medications Medications: Current Medications Allopurinol (Zyloprim) 100 mg PO DAILY [facility] Last Admin: 12/09/16 09:56 Dose: Not Given [facility]cium Acet[facility] ([facility]oslo) [facility] Clotrimazole (Lotrimin 1%) 0 gm TOP BID [facility] Last Admin: 12/09/16 17:25 Dose: 1 applic Collagenase (Santyl) 30 gm TOP BID [facility] Last Admin: 12/09/16 17:33 Dose: 1 applic Docusate Sodium (Colace) 100 mg PO TID [facility] Last Admin: 12/09/16 17:30 Dose: 100 mg Epoetin Maxwell (Procrit) 10,000 unit IV TTS [facility] Last Admin: 12/09/16 11:44 Dose: 10,000 unit Ergocalciferol (Drisdol 50,000 Intl Units Cap) 1 cap PO QWK [facility] Last Admin: 12/06/16 12:33 Dose: 1 cap Escitalopram Oxalate (Lexapro) 10 mg PO DAILY [facility] Last Admin: 12/09/16 09:55 Dose: Not Given Famotidine (Pepcid) 20 mg PO DAILY [facility] Last Admin: 12/09/16 09:56 Dose: Not Given Ferrous Sulfate (Feosol) 325 mg PO DAILY [facility] Last Admin: 12/09/16 09:55 Dose: Not Given Furosemide (Lasix) 40 mg IVP DAILY [facility] Last Admin: 12/09/16 09:55 Dose: Not Given Heparin Sodium (Porcine) (Heparin) 5,000 units SC Q12 [facility] Last Admin: 12/06/16 21:41 Dose: 5,000 units Hydralazine HCl (Apresoline) 25 mg PO BID [facility] Last Admin: 12/09/16 17:30 Dose: 25 mg Ciprofloxacin (Cipro 200mg/100ml D5w) 100 mls @ 100 mls/hr IVPB Q12H [facility] Last Admin: 12/09/16 18:33 Dose: 100 mls/hr Cefepime HCl (Maxipime Iv 1 Gm Premix) 1 gm in 50 mls @ 100 mls/hr IVPB Q24H [facility] Last Admin: 12/09/16 17:34 Dose: 100 mls/hr Insulin Glargine (Lantus) 28 unit SC [facility] Last Admin: 12/09/16 21:21 Dose: 28 unit Insulin Human Regular (Novolin R) 0 unit SC ACHS [facility] PRN Reason: Protocol Last Admin: 12/09/16 21:23 Dose: Not Given Losartan Potassium (Cozaar) 100 mg PO DAILY [facility] Last Admin: 12/09/16 09:54 Dose: Not Given Metolazone (Zaroxolyn) 5 mg PO DAILY [facility] Last Admin: 12/09/16 09:56 Dose: Not Given Mupirocin (Bactroban Ointment) 0 gm TOP BID [facility] Last Admin: 12/09/16 17:31 Dose: Not Given Ondansetron HCl (Zofran Inj) 4 mg IVP Q6H PRN PRN Reason: Nausea/Vomiting Polyethylene Glycol (Miralax) 17 gm PO DAILY [facility] Last Admin: 12/09/16 09:55 Dose: Not Given Rosuvastatin Calcium (Crestor) 10 mg PO HS [facility] Last Admin: 12/09/16 21:18 Dose: 10 mg Sevelamer Carbonate (Renvela) 0.8 gm PO TIDCC [facility] Last Admin: 12/09/16 17:33 Dose: 0.8 gm Vitamin B Complex/Vit C/Folic Acid (Nephro-Alonzo) 1 tab PO DAILY [facility] Last Admin: 12/09/16 09:56 Dose: Not Given - Labs Labs: 12/09/16 07:12 12/09/16 07:12 PT 11.9 SECONDS (9.7-12.2) 12/03/16 10:00 INR 1.1 12/03/16 10:00 APTT 34 SECONDS (21-34) 12/03/16 10:00 - Additional Findings Additional findings: - Constitutional Appears: Non-toxic, No Acute Distress - Head Exam Head Exam: ATRAUMATIC, NORMAL INSPECTION, NORMOCEPHALIC - Eye Exam Eye Exam: EOMI, Normal appearance, PERRL Pupil Exam: NORMAL ACCOMODATION, PERRL - ENT Exam ENT Exam: Mucous Membranes Moist, Normal Exam - Neck Exam Neck Exam: Full ROM - Respiratory Exam Respiratory Exam: NORMAL BREATHING PATTERN. absent: Wheezes - Cardiovascular Exam Cardiovascular Exam: +S1, +S2 - GI/Abdominal Exam GI & Abdominal Exam: Soft, Normal Bowel Sounds, no tenderness - Extremities Exam Extremities Exam: Full ROM, Pedal Edema Additional comments: On left arm at AV site, bandage is freshly changed bilateral cellulitis on the shins left arm incision wrapped/ mildly erythematous left foot ulcer wrapped- c/d/i Assessment and Plan - Assessment and Plan (Free Text) Plan: Disposition: Pt marked for discharge to [facility] after procedure today. Per Dr. Meng's instruction , pt will continue on Cipro x 2 weeks at [facility]. Cefepime will be discontinued. Wound infection after surgery Assessment and Plan: Pt afebrile overnight Lt arm wound culture (12/03/16): MSSA - Prior left arm culture (11/28/16): Serratia marcesens, MSSA Cefepime 1 gm Q24 (started 12/06) Cipro 200 mg IV q 12 (started 12/05) US LE dopplers (11/29/16) negative ID consult, Dr. Meng, help appreciated blood cultures negative x 5 days Left heel ulcer Assessment and Plan: Podiatry consult, Dr. Stevens, help appreciated Seen by podiatry- patient refused dressing changes on 12/06 Santyl BID CKD (chronic kidney disease) stage 3, GFR 30-59 ml/min Assessment and Plan: HD scheduled TuThSa Continue home med: sevelamer 0.8g TIDCC Fluid restriction Status: Chronic Hyperphosphatemia 6.1 on AM labs Start phos-lo 667 BIDAC Monitor Lower Extremity Edema 11/29 LE dopplers: negative R/o obstruction-- 12/02: abdominal u/s: diffuse fatty infiltration of the liver. minimal hepatomegaly. bilateral renal hyperechogenicity-medical renal disease inferred, 5mm midpole nonobstructing right renal calculus-unchanged 12/02: pelvic u/s: markedly limited exam- no distended bladder to provide for sonographic window to visualize pelvic anatomy Anemia, chronic disease Assessment and Plan: Hgb stable 12/03: Patient transfused 2 units PRBCs overnight, HgB increased to 9 Continue to monitor- May benefit from additional transfusions ferrous sulfate 325mg po daily ferrlecit 125 mg daily Status: Chronic Hypertension Assessment and Plan: Continue home med: hydralazine decreased to 25mg po bid losartan 100mg po daily Status: Chronic Diabetes Assessment and Plan: accuchecks ISS Lantus 55 u sc daily (changed from 40 on 12/05) rosuvastatin 10mg po hs Status: Acute Constipation Assessment and Plan: Resolved Patient has had multiple bms continue colace 100 mg po TID Prophylactic measure Assessment and Plan: SCDs heparin 5000u sc q12- held prior to procedure pepcid 20mg daily (renally dosed) renal diet
[2016-12-10] MEDS: Ciprofloxacin 200mg/100ml D5W 100 ML IVPB SCH ×2 (06:41→19:30)
[2016-12-10 07:17] LABS: BASO # 0.1 K/uL (0.0-0.2); EOS # 0.5 K/uL (0.0-0.7); EOS % 4.4 % (0.0-4.0); HEMOGLOBIN 11.4 g/dL (11.0-16.0); LYMPH # 1.7 K/uL (1.0-4.3); LYMPH % 14.1 % (20.0-40.0); MEAN CELL VOLUME 96.1 fL (81.0-99.0); MEAN CORPUSCULAR HEMOGLOBIN 30.4 pg (27.0-31.0); MEAN CORPUSCULAR HGB CONC 31.7 g/dL (33.0-37.0); MEAN PLATELET VOLUME 10.4 fL (7.2-11.7); MONO # 1.6 K/uL (0.0-0.8); MONO % 12.6 % (0.0-10.0); NEUT # 8.4 K/uL (1.8-7.0); NEUT % 67.9 % (50.0-75.0); NRBC % 0.1 % (0.0-2.0); RBC 3.76 Mil/uL (3.80-5.20); RED CELL DISTRIBUTION WIDTH 19.4 % (11.5-14.5); WHITE BLOOD COUNT 12.3 K/uL (4.8-10.8)
[2016-12-10 07:24] LABS: ALBUMIN 3.5 g/dL (3.5-5.0)
[2016-12-10 07:27] LABS: ALB/GLOB RATIO 1.2 (1.0-2.1)
[2016-12-10 07:28] LABS: CALCIUM 8.8 mg/dl (8.6-10.4); MAGNESIUM 2.1 mg/dL (1.6-2.3)
[2016-12-10] MEDS: (Novolin R) Insulin Human Regular 100 units/ml vial SC SCH ×4 (08:37→21:42)
[2016-12-10] MEDS: Sevelamer Carb 0.8 gm/Packet PO SCH ×3 (08:38→17:26)
[2016-12-10] MEDS: Collagenase 250 Units/gm Ointment(30 gm) TOP SCH ×2 (10:05→17:29)
[2016-12-10] MEDS: Multivitamin Vitamin B Complex (Nephro-Vite) Tab PO SCH (10:08)
[2016-12-10] MEDS: POLYETHYLENE GLYCOL 3350 17 GM/Dose PACKET PO SCH (10:08)
[2016-12-10] MEDS: metOLazone 5 MG TAB PO SCH (10:22)
[2016-12-10] MEDS ORDERED: Dextrose 5%/0.45% NS 1,000 ML IV SCH (10:30)
[2016-12-10] MEDS: Clotrimazole 1% Cream(30 gm) TOP SCH ×2 (10:36→17:28)
--- NOTE | 2016-12-10 11:06 | CP.PCM.PN ---
Subjective - Date & Time of Evaluation Date of Evaluation: 12/10/16 Time of Evaluation: 11:03 - Subjective Subjective: 71 y/o female seen at bedside today regarding left foot lateral and plantar ulcerations. Pt is AAOx3 and is in NAD. Pt denies of any acute overnight events. Seen resting comfortably at bedside with visitor present at time of visit. Denies any acute events overnight. Does complain of some mild foot pain today. Denies f/n/v/c/sob/cp at this time. Objective - Vital Signs/Intake and Output Vital Signs (last 24 hours): Temp Pulse Resp BP Pulse Ox 98.3 F 62 20 156/73 H 98 12/10/16 07:49 12/10/16 07:49 12/10/16 07:49 12/10/16 07:49 12/10/16 00:00 Intake and Output: 12/10/16 12/10/16 06:59 18:59 Intake Total 100 Balance 100 - Medications Medications: Current Medications Allopurinol (Zyloprim) 100 mg PO DAILY [facility] Last Admin: 12/10/16 10:08 Dose: Not Given Calcium Acetate (Phoslo) 667 mg PO BIDCC [facility] Last Admin: 12/10/16 08:38 Dose: Not Given Clotrimazole (Lotrimin 1%) 0 gm TOP BID [facility] Last Admin: 12/10/16 10:36 Dose: Not Given Collagenase (Santyl) 30 gm TOP BID [facility] Last Admin: 12/10/16 10:05 Dose: 1 applic Docusate Sodium (Colace) 100 mg PO TID [facility] Last Admin: 12/10/16 10:07 Dose: Not Given Epoetin Maxwell (Procrit) 10,000 unit IV TTS [facility] Last Admin: 12/09/16 11:44 Dose: 10,000 unit Ergocalciferol (Drisdol 50,000 Intl Units Cap) 1 cap PO QWK [facility] Last Admin: 12/06/16 12:33 Dose: 1 cap Escitalopram Oxalate (Lexapro) 10 mg PO DAILY [facility] Last Admin: 12/10/16 10:22 Dose: Not Given Famotidine (Pepcid) 20 mg PO DAILY [facility] Last Admin: 12/10/16 10:08 Dose: Not Given Ferrous Sulfate (Feosol) 325 mg PO DAILY [facility] Last Admin: 12/10/16 10:07 Dose: Not Given Furosemide (Lasix) 40 mg IVP DAILY [facility] Last Admin: 12/10/16 10:22 Dose: Not Given Heparin Sodium (Porcine) (Heparin) 5,000 units SC Q12 [facility] Last Admin: 12/06/16 21:41 Dose: 5,000 units Hydralazine HCl (Apresoline) 25 mg PO BID [facility] Last Admin: 12/10/16 10:23 Dose: Not Given Ciprofloxacin (Cipro 200mg/100ml D5w) 100 mls @ 100 mls/hr IVPB Q12H [facility] Last Admin: 12/10/16 06:41 Dose: 100 mls/hr Cefepime HCl (Maxipime Iv 1 Gm Premix) 1 gm in 50 mls @ 100 mls/hr IVPB Q24H [facility] Last Admin: 12/09/16 17:34 Dose: 100 mls/hr Dextrose/Sodium Chloride (Dextrose 5%/0.45% Ns 1000 Ml) 1,000 mls @ 40 mls/hr IV .Q24H [facility] Last Admin: 12/10/16 10:37 Dose: 40 mls/hr Insulin Glargine (Lantus) 28 unit SC [facility] Last Admin: 12/09/16 21:21 Dose: 28 unit Insulin Human Regular (Novolin R) 0 unit SC ACHS [facility] PRN Reason: Protocol Last Admin: 12/10/16 08:37 Dose: Not Given Losartan Potassium (Cozaar) 100 mg PO DAILY [facility] Last Admin: 12/10/16 10:36 Dose: 100 mg Metolazone (Zaroxolyn) 5 mg PO DAILY [facility] Last Admin: 12/10/16 10:22 Dose: Not Given Mupirocin (Bactroban Ointment) 0 gm TOP BID [facility] Last Admin: 12/10/16 10:07 Dose: Not Given Ondansetron HCl (Zofran Inj) 4 mg IVP Q6H PRN PRN Reason: Nausea/Vomiting Polyethylene Glycol (Miralax) 17 gm PO DAILY [facility] Last Admin: 12/10/16 10:08 Dose: Not Given Rosuvastatin Calcium (Crestor) 10 mg PO HS [facility] Last Admin: 12/09/16 21:18 Dose: 10 mg Sevelamer Carbonate (Renvela) 0.8 gm PO TIDCC [facility] Last Admin: 12/10/16 08:38 Dose: Not Given Vitamin B Complex/Vit C/Folic Acid (Nephro-Alonzo) 1 tab PO DAILY [facility] Last Admin: 12/10/16 10:08 Dose: Not Given - Labs Labs: 12/10/16 07:01 12/10/16 07:01 PT 11.9 SECONDS (9.7-12.2) 12/03/16 10:00 INR 1.1 12/03/16 10:00 APTT 34 SECONDS (21-34) 12/03/16 10:00 - Constitutional Appears: Well, Non-toxic, No Acute Distress - Extremities Exam Additional comments: VASC: DP/PT pulses palpable 1/4 b/l. CFT < 3 seconds to all digits, temperature gradient is warm to cool. Moderate pitting edema noted to b/l lower extremities DERM: Velazco stage 1 ulceration seen at lateral and plantar heel on left foot. No purulent drainage, malodor, undermining, tracking, periwound erythema or other clinical signs of infection noted to the area. Hyperkeratotic periwound area noted with mild maceration seen at plantar aspect of wound. Erythematous skin changes noted to anterior shins b/l (possible hemosiderin deposition). No other open lesions noted at this time. NEURO: Epicritic and protective sensation grossly intact b/l ORTHO: Mild pain on palpation noted to ulcer site of left foot - Neurological Exam Neurological Exam: Alert, Awake, Oriented x3 - Psychiatric Exam Psychiatric exam: Normal Affect, Normal Mood Assessment and Plan - Assessment and Plan (Free Text) Assessment: 71 year old female seen at bedside with left foot secondary to DM, ESRD, CHF and CKD Plan: Pt S&E at bedside Plan discussed in detail with attending Dr. Molina Labs and vitals reviewed (afebrile), WBC 12.3 CUCO/PVR 10/22/16: left: .35, right .98 left foot heel ulcer cleansed with sterile saline, dressed with Santyl, 4x4 gauze and kerlix cont. wearing offloading boots while in bed Continue with abx per ID patient stable from podiatry standpoint. apply santyl, saline, DSD to left foot daily at [facility] patient to follow up with either Dr. Molina or Dr. Stevens as outpatient upon d/c
--- NOTE | 2016-12-10 14:30 | CP.PCM.PN ---
Subjective - Date & Time of Evaluation Date of Evaluation: 12/10/16 Time of Evaluation: 14:30 - Subjective Subjective: AFEBRILE, S/P DEBRIDEMENTAND PULSE IRRIGATION OF LEFT AVF WOUND 12/10 S/P HD 12/09/[address]. CASE DISCUSSED W RESIDENT DR ULRICH. PT FOR FELICIANO IN A.M. CONTINUE IV CIPRO 200MG IV Q 12HRLY X 2WKS. DC iv CEFEPIME ON DISCHARGE. PLEASE WATCH FOR SIDE EFFECTS OF QUINOLONES-ESPECIALLY TENDINITIS, ARTHRITIS, DIZZINESS, AND TRANSAMINITIS. F/U REPEAT CULTURES. Objective - Vital Signs/Intake and Output Vital Signs (last 24 hours): Temp Pulse Resp BP Pulse Ox 98.3 F 62 20 156/73 H 98 12/10/16 07:49 12/10/16 07:49 12/10/16 07:49 12/10/16 07:49 12/10/16 00:00 Intake and Output: 12/10/16 12/10/16 06:59 18:59 Intake Total 100 160 Balance 100 160 - Medications Medications: Current Medications Allopurinol (Zyloprim) 100 mg PO DAILY [facility] Last Admin: 12/10/16 10:08 Dose: Not Given Calcium Acetate (Phoslo) 667 mg PO BIDCC [facility] Last Admin: 12/10/16 08:38 Dose: Not Given Clotrimazole (Lotrimin 1%) 0 gm TOP BID [facility] Last Admin: 12/10/16 10:36 Dose: Not Given Collagenase (Santyl) 30 gm TOP BID [facility] Last Admin: 12/10/16 10:05 Dose: 1 applic Docusate Sodium (Colace) 100 mg PO TID [facility] Last Admin: 12/10/16 13:19 Dose: Not Given Epoetin Maxwell (Procrit) 10,000 unit IV TTS [facility] Last Admin: 12/09/16 11:44 Dose: 10,000 unit Ergocalciferol (Drisdol 50,000 Intl Units Cap) 1 cap PO QWK [facility] Last Admin: 12/06/16 12:33 Dose: 1 cap Escitalopram Oxalate (Lexapro) 10 mg PO DAILY [facility] Last Admin: 12/10/16 10:22 Dose: Not Given Famotidine (Pepcid) 20 mg PO DAILY [facility] Last Admin: 12/10/16 10:08 Dose: Not Given Ferrous Sulfate (Feosol) 325 mg PO DAILY [facility] Last Admin: 12/10/16 10:07 Dose: Not Given Furosemide (Lasix) 40 mg IVP DAILY [facility] Last Admin: 12/10/16 10:22 Dose: Not Given Heparin Sodium (Porcine) (Heparin) 5,000 units SC Q12 [facility] Last Admin: 12/06/16 21:41 Dose: 5,000 units Hydralazine HCl (Apresoline) 25 mg PO BID [facility] Last Admin: 12/10/16 10:23 Dose: Not Given Ciprofloxacin (Cipro 200mg/100ml D5w) 100 mls @ 100 mls/hr IVPB Q12H [facility] Last Admin: 12/10/16 06:41 Dose: 100 mls/hr Cefepime HCl (Maxipime Iv 1 Gm Premix) 1 gm in 50 mls @ 100 mls/hr IVPB Q24H [facility] Last Admin: 12/09/16 17:34 Dose: 100 mls/hr Dextrose/Sodium Chloride (Dextrose 5%/0.45% Ns 1000 Ml) 1,000 mls @ 40 mls/hr IV .Q24H [facility] Last Admin: 12/10/16 10:37 Dose: 40 mls/hr Insulin Glargine (Lantus) 28 unit SC [facility] Last Admin: 12/09/16 21:21 Dose: 28 unit Insulin Human Regular (Novolin R) 0 unit SC ACHS [facility] PRN Reason: Protocol Last Admin: 12/10/16 11:42 Dose: Not Given Losartan Potassium (Cozaar) 100 mg PO DAILY [facility] Last Admin: 12/10/16 10:36 Dose: 100 mg Metolazone (Zaroxolyn) 5 mg PO DAILY [facility] Last Admin: 12/10/16 10:22 Dose: Not Given Mupirocin (Bactroban Ointment) 0 gm TOP BID [facility] Last Admin: 12/10/16 10:07 Dose: Not Given Ondansetron HCl (Zofran Inj) 4 mg IVP Q6H PRN PRN Reason: Nausea/Vomiting Polyethylene Glycol (Miralax) 17 gm PO DAILY [facility] Last Admin: 12/10/16 10:08 Dose: Not Given Rosuvastatin Calcium (Crestor) 10 mg PO [facility] Last Admin: 12/09/16 21:18 Dose: 10 mg Sevelamer Carbonate (Renvela) 0.8 gm PO TIDCC [facility] Last Admin: 12/10/16 11:43 Dose: Not Given Vitamin B Complex/Vit C/Folic Acid (Nephro-Alonzo) 1 tab PO DAILY [facility] Last Admin: 12/10/16 10:08 Dose: Not Given - Labs Labs: 12/10/16 07:01 12/10/16 07:01 PT 11.9 SECONDS (9.7-12.2) 12/03/16 10:00 INR 1.1 12/03/16 10:00 APTT 34 SECONDS (21-34) 12/03/16 10:00 - Constitutional Appears: No Acute Distress - Head Exam Head Exam: NORMAL INSPECTION - Eye Exam Eye Exam: EOMI, PERRL - ENT Exam ENT Exam: Normal Oropharynx - Neck Exam Neck Exam: Normal Inspection - Respiratory Exam Respiratory Exam: Clear to Ausculation Bilateral - Cardiovascular Exam Cardiovascular Exam: REGULAR RHYTHM, +S2 - GI/Abdominal Exam GI & Abdominal Exam: Soft, Normal Bowel Sounds. absent: Tenderness - Extremities Exam Extremities Exam: Pedal Edema (BILATERAL LOWER EXTREMITY EDEMA 1+. ANTERIOR NIÑO CELLULITIS IMPROVING.). absent: Calf Tenderness Additional comments: LEFT UPPER ARM DRESSING. - Neurological Exam Neurological Exam: Awake, CN II-XII Intact, Oriented x3 - Psychiatric Exam Psychiatric exam: Normal Mood - Skin Skin Exam: Normal Color, Warm Assessment and Plan (1) Wound infection after surgery Status: Acute (2) Cellulitis Status: Acute (3) Foot ulcer Status: Acute (4) Peripheral vascular disease Status: Acute (5) Anemia, chronic disease Status: Chronic (6) CKD (chronic kidney disease) stage 3, GFR 30-59 ml/min Status: Chronic (7) DM2 (diabetes mellitus, type 2) Status: Chronic
[2016-12-10] MEDS ORDERED: Sodium Chloride 0.9% 1,000 ML IV ONE ×2 (14:50→15:42)
[2016-12-10] MEDS ORDERED: Midazolam 2 MG/2 ML VIAL ONE (15:02)
[2016-12-10] MEDS ORDERED: Propofol 10 mg/ml Inj (20 ML) ONE (15:02)
[2016-12-10] MEDS: Cefepime IV 1 gm in Dextrose 1 GM/50 ML BAG IVPB SCH (17:28)
[2016-12-10] MEDS: (Lantus) Insulin Glargine, Recombinant SC SCH (21:41)
[2016-12-11] MEDS: Ciprofloxacin 200mg/100ml D5W 100 ML IVPB SCH ×2 (06:03→18:10)
[2016-12-11 07:36] LABS: BASO # 0.1 K/uL (0.0-0.2); EOS # 0.4 K/uL (0.0-0.7); LYMPH # 1.5 K/uL (1.0-4.3); LYMPH % 13.5 % (20.0-40.0); MEAN CELL VOLUME 95.9 fL (81.0-99.0); MEAN CORPUSCULAR HGB CONC 32.3 g/dL (33.0-37.0); MEAN PLATELET VOLUME 10.2 fL (7.2-11.7); MONO # 1.3 K/uL (0.0-0.8); MONO % 11.7 % (0.0-10.0); NEUT # 7.6 K/uL (1.8-7.0); NEUT % 69.8 % (50.0-75.0); NRBC % 0.1 % (0.0-2.0); RBC 3.87 Mil/uL (3.80-5.20); RED CELL DISTRIBUTION WIDTH 18.5 % (11.5-14.5); WHITE BLOOD COUNT 10.9 K/uL (4.8-10.8)
[2016-12-11 07:49] LABS: ALBUMIN 3.5 g/dL (3.5-5.0)
[2016-12-11 07:52] LABS: ALB/GLOB RATIO 1.1 (1.0-2.1)
[2016-12-11 07:53] LABS: CALCIUM 9.1 mg/dl (8.6-10.4); MAGNESIUM 2.5 mg/dL (1.6-2.3)
--- NOTE | 2016-12-11 07:54 | CP.PCM.PN ---
Subjective - Date & Time of Evaluation Date of Evaluation: 12/11/16 Time of Evaluation: 07:53 - Subjective Subjective: 71 y/o female seen at bedside today regarding left foot lateral and plantar ulcerations. Pt is AAOx3 and is in NAD. Pt denies of any acute overnight events. Seen resting comfortably at bedside with visitor present at time of visit. Denies any acute events overnight. Does complain of some mild foot pain today. Denies f/n/v/c/sob/cp at this time. Objective - Vital Signs/Intake and Output Vital Signs (last 24 hours): Temp Pulse Resp BP Pulse Ox 98.7 F 70 20 156/68 H 96 12/11/16 07:50 12/11/16 07:50 12/11/16 07:50 12/11/16 07:50 12/11/16 07:50 Intake and Output: 12/11/16 12/11/16 06:59 18:59 Intake Total 220 Balance 220 - Medications Medications: Current Medications Allopurinol (Zyloprim) 100 mg PO DAILY [facility] Last Admin: 12/10/16 10:08 Dose: Not Given Calcium Acetate (Phoslo) 667 mg PO BIDCC [facility] Last Admin: 12/10/16 17:26 Dose: 667 mg Clotrimazole (Lotrimin 1%) 0 gm TOP BID [facility] Last Admin: 12/10/16 17:28 Dose: 1 applic Collagenase (Santyl) 30 gm TOP BID [facility] Last Admin: 12/10/16 17:29 Dose: 1 applic Docusate Sodium (Colace) 100 mg PO TID [facility] Last Admin: 12/10/16 17:26 Dose: 100 mg Ergocalciferol (Drisdol 50,000 Intl Units Cap) 1 cap PO QWK [facility] Last Admin: 12/06/16 12:33 Dose: 1 cap Escitalopram Oxalate (Lexapro) 10 mg PO DAILY [facility] Last Admin: 12/10/16 10:22 Dose: Not Given Famotidine (Pepcid) 20 mg PO DAILY [facility] Last Admin: 12/10/16 10:08 Dose: Not Given Ferrous Sulfate (Feosol) 325 mg PO DAILY [facility] Last Admin: 12/10/16 10:07 Dose: Not Given Furosemide (Lasix) 40 mg IVP DAILY [facility] Last Admin: 12/10/16 10:22 Dose: Not Given Heparin Sodium (Porcine) (Heparin) 5,000 units SC Q12 [facility] Last Admin: 12/06/16 21:41 Dose: 5,000 units Hydralazine HCl (Apresoline) 25 mg PO BID [facility] Last Admin: 12/10/16 17:26 Dose: 25 mg Ciprofloxacin (Cipro 200mg/100ml D5w) 100 mls @ 100 mls/hr IVPB Q12H [facility] Last Admin: 12/11/16 06:03 Dose: 100 mls/hr Insulin Glargine (Lantus) 55 unit SC [facility] Insulin Human Regular (Novolin R) 0 unit SC ACHS [facility] PRN Reason: Protocol Last Admin: 12/10/16 21:42 Dose: 2 unit Losartan Potassium (Cozaar) 100 mg PO DAILY [facility] Last Admin: 12/10/16 10:36 Dose: 100 mg Metolazone (Zaroxolyn) 5 mg PO DAILY [facility] Last Admin: 12/10/16 10:22 Dose: Not Given Ondansetron HCl (Zofran Inj) 4 mg IVP Q6H PRN PRN Reason: Nausea/Vomiting Last Admin: 12/11/16 06:08 Dose: 4 mg Polyethylene Glycol (Miralax) 17 gm PO DAILY [facility] Last Admin: 12/10/16 10:08 Dose: Not Given Rosuvastatin Calcium (Crestor) 10 mg PO HS [facility] Last Admin: 12/10/16 21:43 Dose: 10 mg Sevelamer Carbonate (Renvela) 0.8 gm PO TIDCC [facility] Last Admin: 12/10/16 17:26 Dose: 0.8 gm Vitamin B Complex/Vit C/Folic Acid (Nephro-Alonzo) 1 tab PO DAILY [facility] Last Admin: 12/10/16 10:08 Dose: Not Given - Labs Labs: 12/11/16 07:13 12/11/16 07:13 PT 11.9 SECONDS (9.7-12.2) 12/03/16 10:00 INR 1.1 12/03/16 10:00 APTT 34 SECONDS (21-34) 12/03/16 10:00 - Constitutional Appears: Well, Non-toxic, No Acute Distress - Extremities Exam Additional comments: VASC: DP/PT pulses palpable 1/4 b/l. CFT < 3 seconds to all digits, temperature gradient is warm to cool. Moderate pitting edema noted to b/l lower extremities DERM: Velazco stage 1 ulceration seen at lateral and plantar heel on left foot. No purulent drainage, malodor, undermining, tracking, periwound erythema or other clinical signs of infection noted to the area. Hyperkeratotic periwound area noted with mild maceration seen at plantar aspect of wound. Erythematous skin changes noted to anterior shins b/l (possible hemosiderin deposition). No other open lesions noted at this time. NEURO: Epicritic and protective sensation grossly intact b/l ORTHO: Mild pain on palpation noted to ulcer site of left foot - Neurological Exam Neurological Exam: Alert, Awake, Oriented x3 - Psychiatric Exam Psychiatric exam: Normal Affect, Normal Mood Assessment and Plan - Assessment and Plan (Free Text) Assessment: 71 year old female seen at bedside with left foot secondary to DM, ESRD, CHF and CKD Plan: Pt S&E at bedside Plan discussed in detail with attending Dr. Molina Labs and vitals reviewed (afebrile), WBC 10.9 CUCO/PVR 10/22/16: left: .35, right .98 left foot heel ulcer cleansed with sterile saline, dressed with Santyl, 4x4 gauze and kerlix cont. wearing offloading boots while in bed Continue with abx per ID patient stable from podiatry standpoint. apply santyl, saline, DSD to left foot daily at [facility] patient to follow up with either Dr. Molina or Dr. Stevens as outpatient upon d/c
--- NOTE | 2016-12-11 08:02 | OP ---
PROCEDURE DATE: 12/10/2016 PREOPERATIVE DIAGNOSES: Open wound and skin necrosis of the left arm. POSTOPERATIVE DIAGNOSES: Open wound and skin necrosis of the left arm. PROCEDURE PERFORMED: Debridement and Dermagraft placement to the open wounds of the left arm. SURGEON: Sergio Melendez MD TYPE OF ANESTHESIA: General. ESTIMATED BLOOD LOSS: 20 mL. POSTOPERATIVE CONDITION: Stable. INDICATION FOR SURGERY: This is a 71-year-old female who after a basilic vein transposition two to three weeks later developed skin necrosis, especially in the area of the brachiocephalic anastomosis, which was especially worsened. She was taken back to the OR for multiple debridements and the wound has begun to granulate nicely, although the area of anastomosis remains slow. Today,she is taken back to the operating room for final debridement, partial closure and placement of an Alloderm graft to cover the wound. DESCRIPTION OF PROCEDURE: The patient was taken to the operating room, general anesthesia was administered, and the left arm was prepped and draped. *------* wounds were all again debrided. Bleeding was controlled using Bovie. Again, a branch at the brachial artery was repaired and a partial tissue transfer closure was performed peripherally. Essentially, Alloderm was placed overlying the brachial wound, the arm wound, and the axillary wound and held in place with the skin clips. The wounds were dressed sterilely. The patient tolerated the procedure well and returned to the operating room in stable condition. Sergio Melendez MD
[2016-12-11] MEDS: Sevelamer Carb 0.8 gm/Packet PO SCH ×3 (08:32→16:32)
[2016-12-11] MEDS: (Novolin R) Insulin Human Regular 100 units/ml vial SC SCH ×4 (08:33→22:16)
[2016-12-11] MEDS: Collagenase 250 Units/gm Ointment(30 gm) TOP SCH ×2 (09:00→18:06)
--- NOTE | 2016-12-11 09:27 | CP.PCM.PN ---
Subjective - Date & Time of Evaluation Date of Evaluation: 12/11/16 Time of Evaluation: 09:20 - Subjective Subjective: PGY3 Note for Dr. Ramesh Cabrera's service (covering for Dr. Myrick) Patient seen and examined at bedside this AM. Patient sitting up in bed comfortably. Patient is worried because she knows is supposed to get dialysis on and she has not been taken for it yet. Patient also reports vomiting once a day. When asked what comes up, she says white spit. Patient says she keeps her food down. She denies cough, abdominal pain, diarrhea, constipation, fever, chills, chest pain, SOB. Objective - Vital Signs/Intake and Output Vital Signs (last 24 hours): Temp Pulse Resp BP Pulse Ox 98.7 F 70 20 156/68 H 96 12/11/16 07:50 12/11/16 07:50 12/11/16 07:50 12/11/16 07:50 12/11/16 07:50 Intake and Output: 12/11/16 12/11/16 06:59 18:59 Intake Total 220 Balance 220 - Medications Medications: Current Medications Allopurinol (Zyloprim) 100 mg PO DAILY [facility] Last Admin: 12/10/16 10:08 Dose: Not Given Calcium Acetate (Phoslo) 667 mg PO BIDCC [facility] Last Admin: 12/11/16 08:32 Dose: 667 mg Clotrimazole (Lotrimin 1%) 0 gm TOP BID [facility] Last Admin: 12/10/16 17:28 Dose: 1 applic Collagenase (Santyl) 30 gm TOP BID [facility] Last Admin: 12/10/16 17:29 Dose: 1 applic Docusate Sodium (Colace) 100 mg PO TID [facility] Last Admin: 12/10/16 17:26 Dose: 100 mg Ergocalciferol (Drisdol 50,000 Intl Units Cap) 1 cap PO QWK [facility] Last Admin: 12/06/16 12:33 Dose: 1 cap Escitalopram Oxalate (Lexapro) 10 mg PO DAILY [facility] Last Admin: 12/10/16 10:22 Dose: Not Given Famotidine (Pepcid) 20 mg PO DAILY [facility] Last Admin: 12/10/16 10:08 Dose: Not Given Ferrous Sulfate (Feosol) 325 mg PO DAILY [facility] Last Admin: 12/10/16 10:07 Dose: Not Given Furosemide (Lasix) 40 mg IVP DAILY [facility] Last Admin: 12/10/16 10:22 Dose: Not Given Heparin Sodium (Porcine) (Heparin) 5,000 units SC Q12 [facility] Last Admin: 12/06/16 21:41 Dose: 5,000 units Hydralazine HCl (Apresoline) 25 mg PO BID [facility] Last Admin: 12/10/16 17:26 Dose: 25 mg Ciprofloxacin (Cipro 200mg/100ml D5w) 100 mls @ 100 mls/hr IVPB Q12H [facility] Last Admin: 12/11/16 06:03 Dose: 100 mls/hr Insulin Glargine (Lantus) 55 unit SC HS [facility] Insulin Human Regular (Novolin R) 0 unit SC ACHS [facility] PRN Reason: Protocol Last Admin: 12/11/16 08:33 Dose: 2 unit Losartan Potassium (Cozaar) 100 mg PO DAILY [facility] Last Admin: 12/10/16 10:36 Dose: 100 mg Metolazone (Zaroxolyn) 5 mg PO DAILY [facility] Last Admin: 12/10/16 10:22 Dose: Not Given Ondansetron HCl (Zofran Inj) 4 mg IVP Q6H PRN PRN Reason: Nausea/Vomiting Last Admin: 12/11/16 06:08 Dose: 4 mg Polyethylene Glycol (Miralax) 17 gm PO DAILY [facility] Last Admin: 12/10/16 10:08 Dose: Not Given Rosuvastatin Calcium (Crestor) 10 mg PO HS [facility] Last Admin: 12/10/16 21:43 Dose: 10 mg Sevelamer Carbonate (Renvela) 0.8 gm PO TIDCC [facility] Last Admin: 12/11/16 08:32 Dose: 0.8 gm Vitamin B Complex/Vit C/Folic Acid (Nephro-Alonzo) 1 tab PO DAILY [facility] Last Admin: 12/10/16 10:08 Dose: Not Given - Labs Labs: 12/11/16 07:13 12/11/16 07:13 PT 11.9 SECONDS (9.7-12.2) 12/03/16 10:00 INR 1.1 12/03/16 10:00 APTT 34 SECONDS (21-34) 12/03/16 10:00 - Constitutional Appears: Non-toxic, No Acute Distress - Head Exam Head Exam: NORMAL INSPECTION - Eye Exam Eye Exam: EOMI - ENT Exam ENT Exam: Mucous Membranes Moist - Respiratory Exam Respiratory Exam: Clear to Ausculation Bilateral, NORMAL BREATHING PATTERN. absent: Rales, Rhonchi, Wheezes - Cardiovascular Exam Cardiovascular Exam: REGULAR RHYTHM, +S1, +S2. absent: Gallop, Rubs, Murmur - GI/Abdominal Exam GI & Abdominal Exam: Soft, Normal Bowel Sounds. absent: Tenderness - Extremities Exam Extremities Exam: Pedal Edema (b/l) Additional comments: left arm wrapped in bandage - Neurological Exam Neurological Exam: Alert, Awake, Oriented x3 - Psychiatric Exam Psychiatric exam: Anxious - Skin Skin Exam: Normal Color, Warm Assessment and Plan - Assessment and Plan (Free Text) Assessment: Wound infection after surgery Assessment and Plan: Pt afebrile overnight Lt arm wound culture (12/03/16): MSSA - Prior left arm culture (11/28/16): Serratia marcesens, MSSA Cefepime 1 gm Q24 (started 12/06) Cipro 200 mg IV q 12 (started 12/05) US LE dopplers (11/29/16) negative ID consult, Dr. Meng, help appreciated -- patient to get cipro 200mg IV daily for 2 weeks at [facility] per discussion with Dr. Nathan Ponce who was told by Dr. Meng and Dr. Myrick that this is the plan blood cultures negative x 5 days Left heel ulcer Assessment and Plan: Podiatry consult, Dr. Stevens, help appreciated Seen by podiatry- patient refused dressing changes on 12/06 Santyl BID CKD (chronic kidney disease) stage 3, GFR 30-59 ml/min Assessment and Plan: HD scheduled TuThSa Continue home med: sevelamer 0.8g TIDCC Fluid restriction Status: Chronic Hyperphosphatemia 6.1 on AM labs Start phos-lo 667 BIDAC Monitor Lower Extremity Edema 11/29 LE dopplers: negative R/o obstruction-- 12/02: abdominal u/s: diffuse fatty infiltration of the liver. minimal hepatomegaly. bilateral renal hyperechogenicity-medical renal disease inferred, 5mm midpole nonobstructing right renal calculus-unchanged 12/02: pelvic u/s: markedly limited exam- no distended bladder to provide for sonographic window to visualize pelvic anatomy Anemia, chronic disease Assessment and Plan: Hgb stable 12/03: Patient transfused 2 units PRBCs overnight, HgB increased to 9 Continue to monitor- May benefit from additional transfusions ferrous sulfate 325mg po daily ferrlecit 125 mg daily Status: Chronic Hypertension Assessment and Plan: Continue home med: hydralazine decreased to 25mg po bid losartan 100mg po daily Status: Chronic Diabetes Assessment and Plan: accuchecks ISS Lantus 55 u sc daily (changed from 40 on 12/05) rosuvastatin 10mg po hs Status: Acute Constipation Assessment and Plan: Resolved Patient has had multiple bms continue colace 100 mg po TID Prophylactic measure Assessment and Plan: SCDs heparin 5000u sc q12- held prior to procedure pepcid 20mg daily (renally dosed) renal diet All management per Dr. Ramesh Cabrera
[2016-12-11] MEDS: POLYETHYLENE GLYCOL 3350 17 GM/Dose PACKET PO SCH (09:46)
[2016-12-11] MEDS: Clotrimazole 1% Cream(30 gm) TOP SCH ×2 (09:46→18:05)
[2016-12-11] MEDS: Multivitamin Vitamin B Complex (Nephro-Vite) Tab PO SCH (09:46)
[2016-12-11] MEDS: metOLazone 5 MG TAB PO SCH (10:00)
--- NOTE | 2016-12-11 13:25 | CP.PCM.PN ---
Subjective - Date & Time of Evaluation Date of Evaluation: 12/11/16 Time of Evaluation: 13:24 - Subjective Subjective: AFEBRILE C/O PAIN LT. FOOT ULCER. CRYING WITH PAIN. SEEN POST HD TODAY 12/11/16. IVETTE AVF IN DRESSING C/D/I. SEEN BY PODIATRY AND NOTED Objective - Vital Signs/Intake and Output Vital Signs (last 24 hours): Temp Pulse Resp BP Pulse Ox 98 F 78 16 109/56 L 100 12/11/16 11:11 12/11/16 11:05 12/11/16 11:05 12/11/16 11:05 12/11/16 11:05 Intake and Output: 12/11/16 12/11/16 06:59 18:59 Intake Total 220 Balance 220 - Medications Medications: Current Medications Allopurinol (Zyloprim) 100 mg PO DAILY [facility] Last Admin: 12/11/16 10:00 Dose: Not Given Calcium Acetate (Phoslo) 667 mg PO BIDCC [facility] Last Admin: 12/11/16 08:32 Dose: 667 mg Clotrimazole (Lotrimin 1%) 0 gm TOP BID [facility] Last Admin: 12/11/16 09:46 Dose: Not Given Collagenase (Santyl) 30 gm TOP BID [facility] Last Admin: 12/11/16 09:00 Dose: 1 applic Docusate Sodium (Colace) 100 mg PO TID [facility] Last Admin: 12/11/16 09:45 Dose: Not Given Ergocalciferol (Drisdol 50,000 Intl Units Cap) 1 cap PO QWK [facility] Last Admin: 12/06/16 12:33 Dose: 1 cap Escitalopram Oxalate (Lexapro) 10 mg PO DAILY [facility] Last Admin: 12/11/16 09:46 Dose: Not Given Famotidine (Pepcid) 20 mg PO DAILY [facility] Last Admin: 12/11/16 09:46 Dose: Not Given Ferrous Sulfate (Feosol) 325 mg PO DAILY [facility] Last Admin: 12/11/16 09:46 Dose: Not Given Furosemide (Lasix) 40 mg IVP DAILY [facility] Last Admin: 12/11/16 09:46 Dose: Not Given Heparin Sodium (Porcine) (Heparin) 5,000 units SC Q12 [facility] Last Admin: 12/06/16 21:41 Dose: 5,000 units Hydralazine HCl (Apresoline) 25 mg PO BID [facility] Last Admin: 12/11/16 09:45 Dose: Not Given Ciprofloxacin (Cipro 200mg/100ml D5w) 100 mls @ 100 mls/hr IVPB Q12H [facility] Last Admin: 12/11/16 06:03 Dose: 100 mls/hr Insulin Glargine (Lantus) 55 unit SC [facility] Insulin Human Regular (Novolin R) 0 unit SC ACHS [facility] PRN Reason: Protocol Last Admin: 12/11/16 11:58 Dose: Not Given Losartan Potassium (Cozaar) 100 mg PO DAILY [facility] Last Admin: 12/11/16 09:45 Dose: Not Given Metolazone (Zaroxolyn) 5 mg PO DAILY [facility] Last Admin: 12/11/16 10:00 Dose: Not Given Ondansetron HCl (Zofran Inj) 4 mg IVP Q6H PRN PRN Reason: Nausea/Vomiting Last Admin: 12/11/16 06:08 Dose: 4 mg Polyethylene Glycol (Miralax) 17 gm PO DAILY [facility] Last Admin: 12/11/16 09:46 Dose: Not Given Rosuvastatin Calcium (Crestor) 10 mg PO HS [facility] Last Admin: 12/10/16 21:43 Dose: 10 mg Sevelamer Carbonate (Renvela) 0.8 gm PO TIDCC [facility] Last Admin: 12/11/16 08:32 Dose: 0.8 gm Vitamin B Complex/Vit C/Folic Acid (Nephro-Alonzo) 1 tab PO DAILY [facility] Last Admin: 12/11/16 09:46 Dose: Not Given - Labs Labs: 12/11/16 07:13 12/11/16 07:13 PT 11.9 SECONDS (9.7-12.2) 12/03/16 10:00 INR 1.1 12/03/16 10:00 APTT 34 SECONDS (21-34) 12/03/16 10:00 - Constitutional Appears: No Acute Distress - Head Exam Head Exam: NORMAL INSPECTION - Eye Exam Eye Exam: EOMI, PERRL - ENT Exam ENT Exam: Normal Oropharynx - Neck Exam Neck Exam: Normal Inspection - Respiratory Exam Respiratory Exam: Clear to Ausculation Bilateral - Cardiovascular Exam Cardiovascular Exam: REGULAR RHYTHM, +S1, +S2 - GI/Abdominal Exam GI & Abdominal Exam: Soft, Normal Bowel Sounds - Extremities Exam Extremities Exam: Pedal Edema (1+ EDEMA B/L LE.). absent: Calf Tenderness, Tenderness (B/L CHRONIC HYPERPIGMENTED SKIN ANTERIR SHINS SEC TO HER DM.) Additional comments: LT FOOT LATERAL ULCER DRY AND HYPERKERATOTIC SKIN TENDERNESS TO PALPATION. - Neurological Exam Neurological Exam: Alert, CN II-XII Intact, Oriented x3, Reflexes Normal - Psychiatric Exam Psychiatric exam: Depressed - Skin Skin Exam: Normal Color, Warm Assessment and Plan (1) Wound infection after surgery Assessment & Plan: CONTINUE IV CIPRO 200MG IV Q 12HRLY X 2WKS. DC iv CEFEPIME ON DISCHARGE. PLEASE WATCH FOR SIDE EFFECTS OF QUINOLONES-ESPECIALLY TENDINITIS, ARTHRITIS, DIZZINESS, AND TRANSAMINITIS. CASE DISCUSSED WITH STAFF. ANALGESICS PER ATTENDING. Status: Acute (2) Cellulitis Status: Acute (3) Foot ulcer Assessment & Plan: LOCAL FOOT CARE PER PODIATRY. ANALGESIC PER PMD Status: Acute (4) Peripheral vascular disease Status: Acute (5) Anemia, chronic disease Status: Chronic (6) CKD (chronic kidney disease) stage 3, GFR 30-59 ml/min Status: Chronic (7) DM2 (diabetes mellitus, type 2) Status: Chronic
--- NOTE | 2016-12-11 17:30 | CP.PCM.PN ---
Subjective - Date & Time of Evaluation Date of Evaluation: 12/11/16 Time of Evaluation: 15:00 - Subjective Subjective: SEEN ON RENAL F/U SEEN ON HD FEELS IMPROVED ON HD TTS ON IVAB FOR CELLULITIS Objective - Vital Signs/Intake and Output Vital Signs (last 24 hours): Temp Pulse Resp BP Pulse Ox 98.7 F 83 20 163/61 H 97 12/11/16 15:00 12/11/16 15:00 12/11/16 15:00 12/11/16 15:00 12/11/16 15:00 Intake and Output: 12/11/16 12/11/16 06:59 18:59 Intake Total 460 Balance 460 - Medications Medications: Current Medications Allopurinol (Zyloprim) 100 mg PO DAILY [facility] Last Admin: 12/11/16 10:00 Dose: Not Given Clotrimazole (Lotrimin 1%) 0 gm TOP BID [facility] Last Admin: 12/11/16 09:46 Dose: Not Given Collagenase (Santyl) 30 gm TOP BID [facility] Last Admin: 12/11/16 09:00 Dose: 1 applic Docusate Sodium (Colace) 100 mg PO TID [facility] Last Admin: 12/11/16 14:42 Dose: 100 mg Ergocalciferol (Drisdol 50,000 Intl Units Cap) 1 cap PO QWK [facility] Last Admin: 12/06/16 12:33 Dose: 1 cap Escitalopram Oxalate (Lexapro) 10 mg PO DAILY [facility] Last Admin: 12/11/16 09:46 Dose: Not Given Famotidine (Pepcid) 20 mg PO DAILY [facility] Last Admin: 12/11/16 09:46 Dose: Not Given Ferrous Sulfate (Feosol) 325 mg PO DAILY [facility] Last Admin: 12/11/16 09:46 Dose: Not Given Furosemide (Lasix) 40 mg IVP DAILY [facility] Last Admin: 12/11/16 09:46 Dose: Not Given Heparin Sodium (Porcine) (Heparin) 5,000 units SC Q12 [facility] Last Admin: 12/06/16 21:41 Dose: 5,000 units Hydralazine HCl (Apresoline) 25 mg PO BID [facility] Last Admin: 12/11/16 09:45 Dose: Not Given Ciprofloxacin (Cipro 200mg/100ml D5w) 100 mls @ 100 mls/hr IVPB Q12H [facility] Last Admin: 12/11/16 06:03 Dose: 100 mls/hr Insulin Glargine (Lantus) 55 unit SC HS [facility] Insulin Human Regular (Novolin R) 0 unit SC ACHS [facility] PRN Reason: Protocol Last Admin: 12/11/16 16:35 Dose: 12 unit Losartan Potassium (Cozaar) 100 mg PO DAILY [facility] Last Admin: 12/11/16 09:45 Dose: Not Given Metolazone (Zaroxolyn) 5 mg PO DAILY [facility] Last Admin: 12/11/16 10:00 Dose: Not Given Ondansetron HCl (Zofran Inj) 4 mg IVP Q6H PRN PRN Reason: Nausea/Vomiting Last Admin: 12/11/16 06:08 Dose: 4 mg Oxycodone/Acetaminophen (Percocet 5/325 Mg Tab) 1 tab PO Q6H PRN PRN Reason: Pain, moderate (4-7) Stop: 12/14/16 17:08 Polyethylene Glycol (Miralax) 17 gm PO DAILY [facility] Last Admin: 12/11/16 09:46 Dose: Not Given Rosuvastatin Calcium (Crestor) 10 mg PO [facility] Last Admin: 12/10/16 21:43 Dose: 10 mg Sevelamer Carbonate (Renvela) 2.4 gm PO TIDCC [facility] Vitamin B Complex/Vit C/Folic Acid (Nephro-Alonzo) 1 tab PO DAILY [facility] Last Admin: 12/11/16 09:46 Dose: Not Given - Labs Labs: 12/11/16 07:13 12/11/16 07:13 PT 11.9 SECONDS (9.7-12.2) 12/03/16 10:00 INR 1.1 12/03/16 10:00 APTT 34 SECONDS (21-34) 12/03/16 10:00 Assessment and Plan - Assessment and Plan (Free Text) Assessment: ESRD ON HD T T S ANEMIA OF CKD .. HGB > 10 .. HOLD EPO SEPSIS O IVAB P : HOLD EPO D/C CA ACETATE .. GIVE RENVELA POWDER 2.4 GM PO TIDPC C/O CURRENT CARE
[2016-12-11] MEDS: Oxycodone/Acetaminophen 5/325 mg Tab PO PRN (18:06)
--- NOTE | 2016-12-11 20:12 | CP.PCM.PN ---
Subjective - Date & Time of Evaluation Date of Evaluation: 12/11/16 Time of Evaluation: 16:00 - Subjective Subjective: clinically same Objective - Vital Signs/Intake and Output Vital Signs (last 24 hours): Temp Pulse Resp BP Pulse Ox 98.7 F 83 20 163/61 H 97 12/11/16 15:00 12/11/16 15:00 12/11/16 15:00 12/11/16 15:00 12/11/16 15:00 Intake and Output: 12/11/16 12/12/16 18:59 06:59 Intake Total 460 Balance 460 - Medications Medications: Current Medications Allopurinol (Zyloprim) 100 mg PO DAILY [facility] Last Admin: 12/11/16 10:00 Dose: Not Given Clotrimazole (Lotrimin 1%) 0 gm TOP BID [facility] Last Admin: 12/11/16 18:05 Dose: 1 applic Collagenase (Santyl) 30 gm TOP BID [facility] Last Admin: 12/11/16 18:06 Dose: 1 applic Docusate Sodium (Colace) 100 mg PO TID [facility] Last Admin: 12/11/16 18:05 Dose: 100 mg Ergocalciferol (Drisdol 50,000 Intl Units Cap) 1 cap PO QWK [facility] Last Admin: 12/06/16 12:33 Dose: 1 cap Escitalopram Oxalate (Lexapro) 10 mg PO DAILY [facility] Last Admin: 12/11/16 09:46 Dose: Not Given Famotidine (Pepcid) 20 mg PO DAILY [facility] Last Admin: 12/11/16 09:46 Dose: Not Given Ferrous Sulfate (Feosol) 325 mg PO DAILY [facility] Last Admin: 12/11/16 09:46 Dose: Not Given Furosemide (Lasix) 40 mg IVP DAILY [facility] Last Admin: 12/11/16 09:46 Dose: Not Given Heparin Sodium (Porcine) (Heparin) 5,000 units SC Q12 [facility] Last Admin: 12/06/16 21:41 Dose: 5,000 units Hydralazine HCl (Apresoline) 25 mg PO BID [facility] Last Admin: 12/11/16 18:05 Dose: 25 mg Ciprofloxacin (Cipro 200mg/100ml D5w) 100 mls @ 100 mls/hr IVPB Q12H [facility] Last Admin: 12/11/16 18:10 Dose: 100 mls/hr Insulin Glargine (Lantus) 55 unit SC HS [facility] Insulin Human Regular (Novolin R) 0 unit SC ACHS [facility] PRN Reason: Protocol Last Admin: 12/11/16 16:35 Dose: 12 unit Losartan Potassium (Cozaar) 100 mg PO DAILY [facility] Last Admin: 12/11/16 09:45 Dose: Not Given Metolazone (Zaroxolyn) 5 mg PO DAILY [facility] Last Admin: 12/11/16 10:00 Dose: Not Given Ondansetron HCl (Zofran Inj) 4 mg IVP Q6H PRN PRN Reason: Nausea/Vomiting Last Admin: 12/11/16 17:30 Dose: 4 mg Oxycodone/Acetaminophen (Percocet 5/325 Mg Tab) 1 tab PO Q6H PRN PRN Reason: Pain, moderate (4-7) Stop: 12/14/16 17:08 Last Admin: 12/11/16 18:06 Dose: 1 tab Polyethylene Glycol (Miralax) 17 gm PO DAILY [facility] Last Admin: 12/11/16 09:46 Dose: Not Given Rosuvastatin Calcium (Crestor) 10 mg PO [facility] Last Admin: 12/10/16 21:43 Dose: 10 mg Sevelamer Carbonate (Renvela) 2.4 gm PO TIDCC [facility] Vitamin B Complex/Vit C/Folic Acid (Nephro-Alonzo) 1 tab PO DAILY [facility] Last Admin: 12/11/16 09:46 Dose: Not Given - Labs Labs: 12/11/16 07:13 12/11/16 07:13 PT 11.9 SECONDS (9.7-12.2) 12/03/16 10:00 INR 1.1 12/03/16 10:00 APTT 34 SECONDS (21-34) 12/03/16 10:00
[2016-12-11] MEDS: (Lantus) Insulin Glargine, Recombinant SC SCH (22:15)
[2016-12-12] MEDS: Ciprofloxacin 200mg/100ml D5W 100 ML IVPB SCH ×2 (06:46→19:00)
[2016-12-12 07:30] LABS: BASO # 0.1 K/uL (0.0-0.2); BASO % 1.2 % (0.0-2.0); EOS # 0.4 K/uL (0.0-0.7); EOS % 3.2 % (0.0-4.0); HEMOGLOBIN 11.8 g/dL (11.0-16.0); LYMPH # 1.3 K/uL (1.0-4.3); LYMPH % 10.7 % (20.0-40.0); MEAN CELL VOLUME 96.9 fL (81.0-99.0); MEAN CORPUSCULAR HEMOGLOBIN 30.3 pg (27.0-31.0); MEAN CORPUSCULAR HGB CONC 31.3 g/dL (33.0-37.0); MEAN PLATELET VOLUME 10.2 fL (7.2-11.7); MONO # 1.1 K/uL (0.0-0.8); MONO % 8.9 % (0.0-10.0); NEUT # 9.1 K/uL (1.8-7.0); RBC 3.91 Mil/uL (3.80-5.20); RED CELL DISTRIBUTION WIDTH 18.6 % (11.5-14.5)
[2016-12-12 08:10] LABS: ALBUMIN 3.4 g/dL (3.5-5.0)
[2016-12-12 08:14] LABS: ALB/GLOB RATIO 1.1 (1.0-2.1); CALCIUM 8.7 mg/dl (8.6-10.4); MAGNESIUM 2.2 mg/dL (1.6-2.3)
[2016-12-12] MEDS: metOLazone 5 MG TAB PO SCH (09:23)
[2016-12-12] MEDS: Oxycodone/Acetaminophen 5/325 mg Tab PO PRN ×2 (09:23→20:17)
[2016-12-12] MEDS: POLYETHYLENE GLYCOL 3350 17 GM/Dose PACKET PO SCH (09:24)
[2016-12-12] MEDS: Multivitamin Vitamin B Complex (Nephro-Vite) Tab PO SCH (09:24)
[2016-12-12 09:32] VITALS: RESP 20
--- NOTE | 2016-12-12 09:43 | CP.PCM.PN ---
Subjective - Date & Time of Evaluation Date of Evaluation: 12/12/16 Time of Evaluation: 09:40 - Subjective Subjective: 71 y/o female seen at bedside today regarding left foot lateral and plantar ulcerations. Pt is AAOx3 and is in NAD. Patient noted to be crying at the time of the visit this morning. She states that she just vomited and is having abdominal pain. Denies any acute events overnight. Does complain of some mild foot pain today. Denies f/n/c/sob/cp at this time. Objective - Vital Signs/Intake and Output Vital Signs (last 24 hours): Temp Pulse Resp BP Pulse Ox 98.3 F 86 20 166/66 H 96 12/12/16 08:00 12/12/16 08:00 12/12/16 08:00 12/12/16 09:24 12/12/16 08:00 Intake and Output: 12/12/16 12/12/16 06:59 18:59 Intake Total 600 Balance 600 - Medications Medications: Current Medications Allopurinol (Zyloprim) 100 mg PO DAILY COUNTS [facility]CLUDE 234 BEDS AT THE [facility] Last Admin: 12/12/16 09:23 Dose: 100 mg Clotrimazole (Lotrimin 1%) 0 gm TOP BID COUNTS INCLUDE 234 BEDS AT THE [facility] Last Admin: 12/11/16 18:05 Dose: 1 applic Collagenase (Santyl) 30 gm TOP BID COUNTS INCLUDE 234 BEDS AT THE [facility] Last Admin: 12/11/16 18:06 Dose: 1 applic Docusate Sodium (Colace) 100 mg PO TID COUNTS INCLUDE 234 BEDS AT THE [facility] Last Admin: 12/11/16 18:05 Dose: 100 mg Ergocalciferol (Drisdol 50,000 Intl Units Cap) 1 cap PO QWK COUNTS INCLUDE 234 BEDS AT THE [facility] Last Admin: 12/06/16 12:33 Dose: 1 cap Escitalopram Oxalate (Lexapro) 10 mg PO DAILY COUNTS INCLUDE 234 BEDS AT THE [facility] Last Admin: 12/12/16 09:24 Dose: 10 mg Famotidine (Pepcid) 20 mg PO DAILY COUNTS INCLUDE 234 BEDS AT THE [facility] Last Admin: 12/12/16 09:23 Dose: 20 mg Ferrous Sulfate (Feosol) 325 mg PO DAILY COUNTS INCLUDE 234 BEDS AT THE [facility] Last Admin: 12/12/16 09:24 Dose: 325 mg Furosemide (Lasix) 40 mg IVP DAILY COUNTS INCLUDE 234 BEDS AT THE [facility] Last Admin: 12/12/16 09:24 Dose: 40 mg Heparin Sodium (Porcine) (Heparin) 5,000 units SC Q12 COUNTS INCLUDE 234 BEDS AT THE [facility] Last Admin: 12/06/16 21:41 Dose: 5,000 units Hydralazine HCl (Apresoline) 25 mg PO BID COUNTS INCLUDE 234 BEDS AT THE [facility] Last Admin: 12/12/16 09:23 Dose: 25 mg Ciprofloxacin (Cipro 200mg/100ml D5w) 100 mls @ 100 mls/hr IVPB Q12H COUNTS INCLUDE 234 BEDS AT THE [facility] Last Admin: 12/12/16 06:46 Dose: 100 mls/hr Insulin Glargine (Lantus) 55 unit SC HS COUNTS INCLUDE 234 BEDS AT THE [facility] Last Admin: 12/11/16 22:15 Dose: 55 unit Insulin Human Regular (Novolin R) 0 unit SC ACHS COUNTS INCLUDE 234 BEDS AT THE [facility] PRN Reason: Protocol Last Admin: 12/11/16 22:16 Dose: Not Given Losartan Potassium (Cozaar) 100 mg PO DAILY COUNTS INCLUDE 234 BEDS AT THE [facility] Last Admin: 12/12/16 09:23 Dose: 100 mg Metolazone (Zaroxolyn) 5 mg PO DAILY COUNTS INCLUDE 234 BEDS AT THE [facility] Last Admin: 12/12/16 09:23 Dose: 5 mg Ondansetron HCl (Zofran Inj) 4 mg IVP Q6H PRN PRN Reason: Nausea/Vomiting Last Admin: 12/12/16 06:46 Dose: 4 mg Oxycodone/Acetaminophen (Percocet 5/325 Mg Tab) 1 tab PO Q6H PRN PRN Reason: Pain, moderate (4-7) Stop: 12/14/16 17:08 Last Admin: 12/12/16 09:23 Dose: 1 tab Polyethylene Glycol (Miralax) 17 gm PO DAILY COUNTS INCLUDE 234 BEDS AT THE [facility] Last Admin: 12/12/16 09:24 Dose: 17 gm Rosuvastatin Calcium (Crestor) 10 mg PO [facility] Last Admin: 12/11/16 22:14 Dose: 10 mg Sevelamer Carbonate (Renvela) 2.4 gm PO TIDCC COUNTS INCLUDE 234 BEDS AT THE [facility] Vitamin B Complex/Vit C/Folic Acid (Nephro-Alonzo) 1 tab PO DAILY COUNTS INCLUDE 234 BEDS AT THE [facility] Last Admin: 12/12/16 09:24 Dose: 1 tab - Labs Labs: 12/12/16 07:16 12/12/16 07:16 PT 11.9 SECONDS (9.7-12.2) 12/03/16 10:00 INR 1.1 12/03/16 10:00 APTT 34 SECONDS (21-34) 12/03/16 10:00 - Constitutional Appears: Well, Non-toxic, No Acute Distress - Extremities Exam Additional comments: VASC: DP/PT pulses palpable 1/4 b/l. CFT < 3 seconds to all digits, temperature gradient is warm to cool. Moderate pitting edema noted to b/l lower extremities DERM: Velazco stage 1 ulceration seen at lateral and plantar heel on left foot. No purulent drainage, malodor, undermining, tracking, periwound erythema or other clinical signs of infection noted to the area. Hyperkeratotic periwound area noted seen at plantar aspect of wound. Erythematous skin changes noted to anterior shins b/l (possible hemosiderin deposition). No other open lesions noted at this time. NEURO: Epicritic and protective sensation grossly intact b/l ORTHO: Mild pain on palpation noted to ulcer site of left foot - Neurological Exam Neurological Exam: Alert, Awake, Oriented x3 - Psychiatric Exam Psychiatric exam: Normal Affect, Normal Mood Assessment and Plan - Assessment and Plan (Free Text) Assessment: 71 year old female seen at bedside with left foot superficial ulceration secondary to DM, ESRD, CHF and CKD Plan: Pt S&E at bedside Plan discussed in detail with attending Dr. Molina Labs and vitals reviewed (afebrile), WBC 12.0 CUCO/PVR 10/22/16: left: .35, right .98 left foot heel ulcer cleansed with sterile saline, dressed with Santyl, 4x4 gauze and kerlix cont. wearing offloading boots while in bed Continue with abx per ID patient stable from podiatry standpoint. apply santyl, saline, DSD to left foot daily at [facility] patient to follow up with either Dr. Molina or Dr. Stevens as outpatient upon d/c
--- NOTE | 2016-12-12 10:46 | CP.PCM.PN ---
Subjective - Date & Time of Evaluation Date of Evaluation: 12/12/16 Time of Evaluation: 10:41 - Subjective Subjective: PGY2 progress note Pt is seen and examined at bedside. This morning patient had one episode of vomiting NB/NB. Patient denies having any CP, SOB, abd pain, diarrhea. Patient is c/o constipation. 12 point ROS are negative except for the above mentioned. Objective - Vital Signs/Intake and Output Vital Signs (last 24 hours): Temp Pulse Resp BP Pulse Ox 98.3 F 86 20 166/66 H 96 12/12/16 08:00 12/12/16 08:00 12/12/16 08:00 12/12/16 09:24 12/12/16 08:00 Intake and Output: 12/12/16 12/12/16 06:59 18:59 Intake Total 600 Balance 600 - Medications Medications: Current Medications Allopurinol (Zyloprim) 100 mg PO DAILY [facility] Last Admin: 12/12/16 09:23 Dose: 100 mg Clotrimazole (Lotrimin 1%) 0 gm TOP BID [facility] Last Admin: 12/11/16 18:05 Dose: 1 applic Collagenase (Santyl) 30 gm TOP BID [facility] Last Admin: 12/11/16 18:06 Dose: 1 applic Docusate Sodium (Colace) 100 mg PO TID [facility] Last Admin: 12/12/16 10:14 Dose: Not Given Ergocalciferol (Drisdol 50,000 Intl Units Cap) 1 cap PO QWK [facility] Last Admin: 12/06/16 12:33 Dose: 1 cap Escitalopram Oxalate (Lexapro) 10 mg PO DAILY [facility] Last Admin: 12/12/16 09:24 Dose: 10 mg Famotidine (Pepcid) 20 mg PO DAILY [facility] Last Admin: 12/12/16 09:23 Dose: 20 mg Ferrous Sulfate (Feosol) 325 mg PO DAILY [facility] Last Admin: 12/12/16 09:24 Dose: 325 mg Furosemide (Lasix) 40 mg IVP DAILY [facility] Last Admin: 12/12/16 09:24 Dose: 40 mg Heparin Sodium (Porcine) (Heparin) 5,000 units SC Q12 [facility] Last Admin: 12/06/16 21:41 Dose: 5,000 units Hydralazine HCl (Apresoline) 25 mg PO BID [facility] Last Admin: 12/12/16 09:23 Dose: 25 mg Ciprofloxacin (Cipro 200mg/100ml D5w) 100 mls @ 100 mls/hr IVPB Q12H [facility] Last Admin: 12/12/16 06:46 Dose: 100 mls/hr Insulin Glargine (Lantus) 55 unit SC [facility] Last Admin: 12/11/16 22:15 Dose: 55 unit Insulin Human Regular (Novolin R) 0 unit SC [facility] PRN Reason: Protocol Last Admin: 12/11/16 22:16 Dose: Not Given Losartan Potassium (Cozaar) 100 mg PO DAILY [facility] Last Admin: 12/12/16 09:23 Dose: 100 mg Metolazone (Zaroxolyn) 5 mg PO DAILY [facility] Last Admin: 12/12/16 09:23 Dose: 5 mg Ondansetron HCl (Zofran Inj) 4 mg IVP Q6H PRN PRN Reason: Nausea/Vomiting Last Admin: 12/12/16 06:46 Dose: 4 mg Oxycodone/Acetaminophen (Percocet 5/325 Mg Tab) 1 tab PO Q6H PRN PRN Reason: Pain, moderate (4-7) Stop: 12/14/16 17:08 Last Admin: 12/12/16 09:23 Dose: 1 tab Polyethylene Glycol (Miralax) 17 gm PO DAILY [facility] Last Admin: 12/12/16 09:24 Dose: 17 gm Rosuvastatin Calcium (Crestor) 10 mg PO [facility] Last Admin: 12/11/16 22:14 Dose: 10 mg Sevelamer Carbonate (Renvela) 2.4 gm PO TIDCC [facility] Vitamin B Complex/Vit C/Folic Acid (Nephro-Kevin) 1 tab PO DAILY [facility] Last Admin: 12/12/16 09:24 Dose: 1 tab - Labs Labs: 12/12/16 07:16 12/12/16 07:16 PT 11.9 SECONDS (9.7-12.2) 12/03/16 10:00 INR 1.1 12/03/16 10:00 APTT 34 SECONDS (21-34) 12/03/16 10:00 - Constitutional Appears: Non-toxic, No Acute Distress - Head Exam Head Exam: ATRAUMATIC - Eye Exam Eye Exam: EOMI - ENT Exam ENT Exam: Mucous Membranes Moist - Respiratory Exam Respiratory Exam: Clear to Ausculation Bilateral. absent: Rales, Rhonchi, Wheezes - Cardiovascular Exam Cardiovascular Exam: REGULAR RHYTHM, +S1, +S2. absent: Gallop, Rubs, Murmur - GI/Abdominal Exam GI & Abdominal Exam: Soft, Normal Bowel Sounds. absent: Firm, Guarding, Rigid, Tenderness, Organomegaly - Neurological Exam Neurological Exam: Alert, Awake, Oriented x3 - Psychiatric Exam Psychiatric exam: Normal Affect, Normal Mood - Skin Skin Exam: Dry, Intact, Normal Color, Warm Assessment and Plan - Assessment and Plan (Free Text) Assessment: Wound infection after surgery Afebrile overnight Lt arm wound culture (12/03/16): MSSA - Prior left arm culture (11/28/16): Serratia marcesens, MSSA Cipro 200 mg IV q 12 (started 12/05) Will continue for 2 weeks per ID US LE dopplers (11/29/16) negative ID consult, Dr. Meng, help appreciated -- patient to get cipro 200mg IV q12 for 2 weeks at [facility] per discussion with Dr. Nathan Ponce who was told by Dr. Meng and Dr. Myrick that this is the plan blood cultures negative x 5 days Left heel ulcer Podiatry consult, Dr. Stevens, help appreciated Lotrimin Santyl BID CKD (chronic kidney disease) stage 3, GFR 30-59 ml/min HD scheduled TuThSa Continue home med: sevelamer 0.8g TIDCC Nephro-kevin Ergocalciferol Fluid restriction Hyperphosphatemia 6.1 on AM labs Start phos-lo 667 BIDAC Monitor Lower Extremity Edema 11/29 LE dopplers: negative Abdominal pain resolved R/o obstruction-- 12/02: abdominal u/s: diffuse fatty infiltration of the liver. minimal hepatomegaly. bilateral renal hyperechogenicity-medical renal disease inferred, 5mm midpole nonobstructing right renal calculus-unchanged 12/02: pelvic u/s: markedly limited exam- no distended bladder to provide for sonographic window to visualize pelvic anatomy Anemia, chronic disease Hgb stable 12/03: Patient transfused 2 units PRBCs overnight, HgB increased to 9 Continue to monitor- May benefit from additional transfusions ferrous sulfate 325mg po daily ferrlecit 125 mg daily Hypertension Continue home med: hydralazine decreased to 25mg po bid losartan 100mg po daily Diabetes accuchecks ISS Lantus 55 u sc daily (changed from 40 on 12/05) rosuvastatin 10mg po hs Constipation Resolved Patient has had multiple bms continue colace 100 mg po TID Prophylactic measure SCDs heparin 5000u sc q12- held prior to procedure pepcid 20mg daily (renally dosed) renal diet All management per Dr. Ramesh Cabrera
[2016-12-12] MEDS: Clotrimazole 1% Cream(30 gm) TOP SCH ×2 (11:11→18:02)
[2016-12-12] MEDS: Sevelamer Carb 2.4 gm/Packet PO SCH ×3 (11:12→18:03)
[2016-12-12] MEDS: (Novolin R) Insulin Human Regular 100 units/ml vial SC SCH ×3 (11:20→22:06)
[2016-12-12] MEDS: Collagenase 250 Units/gm Ointment(30 gm) TOP SCH ×2 (11:21→18:02)
--- NOTE | 2016-12-12 11:49 | CP.PCM.PN ---
Subjective - Date & Time of Evaluation Date of Evaluation: 12/12/16 Time of Evaluation: 11:49 - Subjective Subjective: afebrile, Complains of nausea and vomited once this a.m. Less pain left foot Objective - Vital Signs/Intake and Output Vital Signs (last 24 hours): Temp Pulse Resp BP Pulse Ox 98.3 F 86 20 166/66 H 96 12/12/16 08:00 12/12/16 08:00 12/12/16 08:00 12/12/16 09:24 12/12/16 08:00 Intake and Output: 12/12/16 12/12/16 06:59 18:59 Intake Total 600 Balance 600 - Medications Medications: Current Medications Allopurinol (Zyloprim) 100 mg PO DAILY [facility] Last Admin: 12/12/16 09:23 Dose: 100 mg Clotrimazole (Lotrimin 1%) 0 gm TOP BID [facility] Last Admin: 12/12/16 11:11 Dose: Not Given Collagenase (Santyl) 30 gm TOP BID [facility] Last Admin: 12/12/16 11:21 Dose: 1 applic Docusate Sodium (Colace) 100 mg PO TID [facility] Last Admin: 12/12/16 10:14 Dose: Not Given Ergocalciferol (Drisdol 50,000 Intl Units Cap) 1 cap PO QWK [facility] Last Admin: 12/06/16 12:33 Dose: 1 cap Escitalopram Oxalate (Lexapro) 10 mg PO DAILY [facility] Last Admin: 12/12/16 09:24 Dose: 10 mg Famotidine (Pepcid) 20 mg PO DAILY [facility] Last Admin: 12/12/16 09:23 Dose: 20 mg Ferrous Sulfate (Feosol) 325 mg PO DAILY [facility] Last Admin: 12/12/16 09:24 Dose: 325 mg Furosemide (Lasix) 40 mg IVP DAILY [facility] Last Admin: 12/12/16 09:24 Dose: 40 mg Heparin Sodium (Porcine) (Heparin) 5,000 units SC Q12 [facility] Last Admin: 12/06/16 21:41 Dose: 5,000 units Hydralazine HCl (Apresoline) 25 mg PO BID [facility] Last Admin: 12/12/16 09:23 Dose: 25 mg Ciprofloxacin (Cipro 200mg/100ml D5w) 100 mls @ 100 mls/hr IVPB Q12H [facility] Last Admin: 12/12/16 06:46 Dose: 100 mls/hr Insulin Glargine (Lantus) 55 unit SC [facility] Last Admin: 12/11/16 22:15 Dose: 55 unit Insulin Human Regular (Novolin R) 0 unit SC [facility] PRN Reason: Protocol Last Admin: 12/12/16 11:20 Dose: 12 unit Losartan Potassium (Cozaar) 100 mg PO DAILY [facility] Last Admin: 12/12/16 09:23 Dose: 100 mg Metolazone (Zaroxolyn) 5 mg PO DAILY [facility] Last Admin: 12/12/16 09:23 Dose: 5 mg Ondansetron HCl (Zofran Inj) 4 mg IVP Q6H PRN PRN Reason: Nausea/Vomiting Last Admin: 12/12/16 06:46 Dose: 4 mg Oxycodone/Acetaminophen (Percocet 5/325 Mg Tab) 1 tab PO Q6H PRN PRN Reason: Pain, moderate (4-7) Stop: 12/14/16 17:08 Last Admin: 12/12/16 09:23 Dose: 1 tab Polyethylene Glycol (Miralax) 17 gm PO DAILY [facility] Last Admin: 12/12/16 09:24 Dose: 17 gm Rosuvastatin Calcium (Crestor) 10 mg PO HS [facility] Last Admin: 12/11/16 22:14 Dose: 10 mg Sevelamer Carbonate (Renvela) 2.4 gm PO TIDCC [facility] Last Admin: 12/12/16 11:12 Dose: Not Given Vitamin B Complex/Vit C/Folic Acid (Nephro-Alonzo) 1 tab PO DAILY [facility] Last Admin: 12/12/16 09:24 Dose: 1 tab - Labs Labs: 12/12/16 07:16 12/12/16 07:16 PT 11.9 SECONDS (9.7-12.2) 12/03/16 10:00 INR 1.1 12/03/16 10:00 APTT 34 SECONDS (21-34) 12/03/16 10:00 - Constitutional Appears: No Acute Distress - Head Exam Head Exam: NORMAL INSPECTION - Eye Exam Eye Exam: EOMI, PERRL - ENT Exam ENT Exam: Normal Oropharynx - Neck Exam Neck Exam: Normal Inspection - Respiratory Exam Respiratory Exam: Clear to Ausculation Bilateral - Cardiovascular Exam Cardiovascular Exam: REGULAR RHYTHM, +S1, +S2 - GI/Abdominal Exam GI & Abdominal Exam: Soft, Normal Bowel Sounds - Extremities Exam Extremities Exam: Pedal Edema (left foot in dressing. Bilateral anterior bernstein rash improving slowly). absent: Calf Tenderness Additional comments: left upper arm AV fistula site dressing in place. LEFT FOOT LATERAL ULCER DRY AND HYPERKERATOTIC SKIN TENDERNESS TO PALPATION. - Neurological Exam Neurological Exam: Awake, Oriented x3 - Psychiatric Exam Psychiatric exam: Normal Mood - Skin Skin Exam: Normal Color, Warm Assessment and Plan (1) Wound infection after surgery Assessment & Plan: CONTINUE IV CIPRO 200MG IV Q 12HRLY X 2WKS DISCUSSED W STAFF. [facility] PER VASCULAR SURGERY. Status: Acute (2) Cellulitis Status: Acute (3) Foot ulcer Status: Acute (4) Peripheral vascular disease Status: Acute (5) Anemia, chronic disease Status: Chronic (6) CKD (chronic kidney disease) stage 3, GFR 30-59 ml/min Status: Chronic (7) DM2 (diabetes mellitus, type 2) Status: Chronic
[2016-12-12 16:31] VITALS: BP 157/69; PULSE 69; TEMP 98.5; O2SAT 97
[2016-12-12] MEDS: (Lantus) Insulin Glargine, Recombinant SC SCH (22:05)
--- NOTE | 2016-12-13 13:17 | CP.PCM.DIS ---
Provider - Provider Date of Admission: 11/28/16 14:52 Attending physician: Sandip Casey MD Hospital Course - Lab Results Lab Results: Micro Results 12/03/16 18:30 Arm - Left Gram Stain - Final 12/03/16 18:30 Arm - Left Wound Culture - Final Staphylococcus Aureus 11/28/16 15:00 Arm - Left Gram Stain - Final 11/28/16 15:00 Arm - Left Wound Culture - Final Serratia Marcescens Staphylococcus Aureus Most Recent Lab Values WBC 12.0 K/uL (4.8-10.8) H 12/12/16 07:16 RBC 3.91 Mil/uL (3.80-5.20) 12/12/16 07:16 Hgb 11.8 g/dL (11.0-16.0) 12/12/16 07:16 Hct 37.9 % (34.0-47.0) 12/12/16 07:16 MCV 96.9 fL (81.0-99.0) 12/12/16 07:16 MCH 30.3 pg (27.0-31.0) 12/12/16 07:16 MCHC 31.3 g/dL (33.0-37.0) L 12/12/16 07:16 RDW 18.6 % (11.5-14.5) H 12/12/16 07:16 Plt Count 146 K/uL (130-400) 12/12/16 07:16 MPV 10.2 fL (7.2-11.7) 12/12/16 07:16 Neut % (Auto) 76.0 % (50.0-75.0) H 12/12/16 07:16 Lymph % (Auto) 10.7 % (20.0-40.0) L 12/12/16 07:16 Thayer % (Auto) 8.9 % (0.0-10.0) 12/12/16 07:16 Eos % (Auto) 3.2 % (0.0-4.0) 12/12/16 07:16 Baso % (Auto) 1.2 % (0.0-2.0) 12/12/16 07:16 Neut # 9.1 K/uL (1.8-7.0) H 12/12/16 07:16 Lymph # 1.3 K/uL (1.0-4.3) 12/12/16 07:16 Thayer # 1.1 K/uL (0.0-0.8) H 12/12/16 07:16 Eos # 0.4 K/uL (0.0-0.7) 12/12/16 07:16 Baso # 0.1 K/uL (0.0-0.2) 12/12/16 07:16 PT 11.9 SECONDS (9.7-12.2) 12/03/16 10:00 INR 1.1 12/03/16 10:00 APTT 34 SECONDS (21-34) 12/03/16 10:00 pO2 39 mm/Hg (30-55) 11/28/16 14:30 VBG pH 7.50 (7.32-7.43) H 11/28/16 14:30 VBG pCO2 47 mmHg (40-60) 11/28/16 14:30 VBG HCO3 33.6 mmol/L 11/28/16 14:30 VBG Total CO2 38.1 mmol/L (22-28) H 11/28/16 14:30 VBG O2 Sat (Calc) 78.7 % (40-65) H 11/28/16 14:30 VBG Base Excess 11.8 mmol/L (0.0-2.0) H 11/28/16 14:30 VBG Potassium 3.4 mmol/L (3.6-5.2) L 11/28/16 14:30 Sodium 138.0 mmol/l (132-148) 11/28/16 14:30 Chloride 105.0 mmol/L (98-107) 11/28/16 14:30 Glucose 59 mg/dl (65-105) L 11/28/16 14:30 Lactate 1.1 mmol/L (0.7-2.1) 11/28/16 14:30 Sodium 129 mmol/L (132-148) L 12/12/16 07:16 Potassium 5.2 mmol/L (3.6-5.2) 12/12/16 07:16 Chloride 89 mmol/L (98-107) L 12/12/16 07:16 Carbon Dioxide 24 mmol/L (22-30) 12/12/16 07:16 Anion Gap 22 (10-20) H 12/12/16 07:16 BUN 33 mg/dL (7-17) H 12/12/16 07:16 Creatinine 5.3 MG/DL (0.7-1.2) H 12/12/16 07:16 Est GFR ( Amer) 10 12/12/16 07:16 Est GFR (Non-Af Amer) 8 12/12/16 07:16 POC Glucose (mg/dL) 293 mg/dL (65-110) H 12/12/16 20:55 Random Glucose 300 mg/dL (65-105) H 12/12/16 07:16 Calcium 8.7 mg/dl (8.6-10.4) 12/12/16 07:16 Phosphorus 7.0 mg/dL (2.5-4.5) H 12/12/16 07:16 Magnesium 2.2 mg/dL (1.6-2.3) 12/12/16 07:16 Total Bilirubin 0.7 mg/dL (0.2-1.3) 12/12/16 07:16 AST 31 U/L (14-36) 12/12/16 07:16 ALT 30 U/L (9-52) 12/12/16 07:16 Alkaline Phosphatase 107 U/L (38-126) 12/12/16 07:16 Total Protein 6.6 g/dL (6.3-8.3) 12/12/16 07:16 Albumin 3.4 g/dL (3.5-5.0) L 12/12/16 07:16 Globulin 3.1 gm/dL (2.2-3.9) 12/12/16 07:16 Albumin/Globulin Ratio 1.1 (1.0-2.1) 12/12/16 07:16 Venous Blood Potassium 3.4 mmol/L (3.6-5.2) L 11/28/16 14:30 Random Vancomycin 10.25 ug/mL 11/29/16 16:00 Hep Bs Antigen Negative (NEGATIVE) 11/29/16 16:00 Hep Bs Antibody Negative (NEGATIVE) 11/29/16 16:00 Hep B Core IgM Ab Negative (NEGATIVE) 11/29/16 16:00 Blood Type B POSITIVE 12/02/16 19:48 Antibody Screen Negative 12/02/16 19:48 Discharge Exam - Head Exam Head Exam: NORMAL INSPECTION Discharge Plan - Follow Up Plan Condition: STABLE Disposition: REHAB FACILITY/REHAB UNIT Instructions: Hemodialysis (DC), Cellulitis (DC), Diabetes Mellitus Type 2 in Adults (DC), Acute Wound Care (DC) Additional Instructions: Patient stable for discharge per Dr. Myrick and Dr. Cabrera. She has been prescribed the following medications to continue at [facility]. See below for full reconcilliation. Patient will follow up with PMD within one week. She should also make an appointment to follow up with specialist, Dr. Ambrose to continue evaluation of chronic kidney disease. She is advised to return to the emergency department if symptoms return or worsen. These instructions were given to the pt in Romanian. Patient expressed verbal understanding of these instructions. Prescribed medications: IV antibiotics: Cipro 200mg IV Q12H x 2 weeks (28 total doses, last dose 12/23/16) Santly 30gm TOPICAL BID Mupirocin TOPICAL BID Colace 100mg PO TID Allopurinol 100mg PO Daily Lexapro 10mg by mouth once daily Lipitor 20mg PO HS Lantus 55 units SC HS Insulin Sliding Scale- Novolin R Procrit 10,000 units IV T//Sat with dialysis Feosol 325mg PO Daily Renvela 0.8 gm one tab by mouth three times daily with meals Nephro-kevin 1 tab by mouth daily Lasix 40mg IV Daily Metolazone 5mg PO daily Ergocalciferol 91848 units 1 tab PO Qwkly (every thursday) x 3 months Hydralazine 25mg PO BID Losartan 100mg PO daily
--- NOTE | 2016-12-15 10:46 | PQF DEBRID ---
This form is a permanent part of the medical record To Sergio Melendez MD, Patient was presented to the ED with pain and swelling of left arm status post AV shunt creation. History of CKD/HTN/CHF, Diabetis type 2, Anemia of Chronic Disease. Patient undergo Debridment on the following dates: 12/04/16 ; 12/05/16 ; 12/10/16 Please check boxes below to clarify the type of debridement done. Clarification of your documentation is requested to better reflect the severity of illness and intensity of treatment of your patient. Indicators present [] Documentation of wound care / debridement -- EXCISIONAL ? NON EXCISIONAL? [] Technique: [] [] Instrument used:[] [] Nature of Tissue Removed:[] [] Appearance of Wound:[] [] Size of Wound: [] [] Depth of Debridement: [] [] Other: [] Location in the medical record that reflects the above clinical findings: [] Other Treatment Provided: [] PHYSICIAN'S RESPONSE Based on your medical judgment, can you further clarify the precise NATURE, DEPTH, EXTENT and / or METHODS of wound debridement utilized in this case: [] EXCISIONAL debridement use of a scalpel / blade to cut away tissue Depth (subcutaneous, fascia, muscle, soft tissue and bone) [] Size of Wound [] NON-EXCISIONAL debridement chemical, scrubbing, trimming with a scissor/ versajet [] Other, please indicate: [] [] If unable to determine, please check the box, sign and date. In responding to this query, please exercise your independent professional judgment. The fact that a question is asked does not imply that any particular answer is desired or expected. Thank you for your clarification on this documentation. If you have any questions please call:[ ] * Thank you, [ Virginia Ogden, MIGUEL] executive vice president and chief financial officer [employer]
== END 2016-12-12 22:30 | DRG 264 ==
LOC: C.ER 13:13 → C.9E 14:52 → C.3T 20:39
PROVIDERS: ADMIT Internal Medicine; ATTEND Internal Medicine Nephrology
PROC: 5A1D60Z (ICD-10-PCS; 2016-12-02)
PROC: 30233N1 Transfusion of Nonautologous Red Blood Cells into Peripheral Vein, Percutaneous Approach (ICD-10-PCS; 2016-12-03)
PROC: 0HBEXZZ Excision of Left Lower Arm Skin, External Approach (ICD-10-PCS; 2016-12-03)
PROC: 0H9EXZZ Drainage of Left Lower Arm Skin, External Approach (ICD-10-PCS; 2016-12-03)
PROC: 02HV33Z Insertion of Infusion Device into Superior Vena Cava, Percutaneous Approach (ICD-10-PCS; principal; 2016-12-05 13:15)
DX: T82.7XXA Infection and inflammatory reaction due to other cardiac and vascular devices, implants and grafts, initial encounter (principal); R65.20 Severe sepsis without septic shock; N18.6 End stage renal disease; A41.9 Sepsis, unspecified organism; E11.22 Type 2 diabetes mellitus with diabetic chronic kidney disease; E11.621 Type 2 diabetes mellitus with foot ulcer; L03.115 Cellulitis of right lower limb; L02.414 Cutaneous abscess of left upper limb; T81.4XXA Infection following a procedure, initial encounter; L03.116 Cellulitis of left lower limb; I50.9 Heart failure, unspecified; L97.519 Non-pressure chronic ulcer of other part of right foot with unspecified severity; F41.9 Anxiety disorder, unspecified; E78.00 Pure hypercholesterolemia, unspecified; Z99.2 Dependence on renal dialysis; Z79.4 Long term (current) use of insulin; L08.9 Local infection of the skin and subcutaneous tissue, unspecified; Y83.2 Surgical operation with anastomosis, bypass or graft as the cause of abnormal reaction of the patient, or of later complication, without mention of misadventure at the time of the procedure; I70.245 Atherosclerosis of native arteries of left leg with ulceration of other part of foot; L97.529 Non-pressure chronic ulcer of other part of left foot with unspecified severity; D63.1 Anemia in chronic kidney disease; E11.628 Type 2 diabetes mellitus with other skin complications; B95.61 Methicillin susceptible Staphylococcus aureus infection as the cause of diseases classified elsewhere; K59.00 Constipation, unspecified; E11.649 Type 2 diabetes mellitus with hypoglycemia without coma

== ENCOUNTER 2016-12-15 21:35 | Inpatient (IN) | payer MEDICARE ==
[2016-12-15 21:35] VITALS: BMI 26.5
[2016-12-15 22:16] LABS: BASO # 0.2 K/uL (0.0-0.2); EOS # 0.4 K/uL (0.0-0.7); EOS % 4.1 % (0.0-4.0); HEMATOCRIT 34.4 % (34.0-47.0); LYMPH # 1.6 K/uL (1.0-4.3); LYMPH % 18.2 % (20.0-40.0); MEAN CELL VOLUME 96.2 fL (81.0-99.0); MEAN CORPUSCULAR HGB CONC 32.2 g/dL (33.0-37.0); MEAN PLATELET VOLUME 9.3 fL (7.2-11.7); MONO # 1.2 K/uL (0.0-0.8); RED CELL DISTRIBUTION WIDTH 17.9 % (11.5-14.5); WHITE BLOOD COUNT 8.6 K/uL (4.8-10.8)
[2016-12-15 22:18] LABS: VENOUS BLOOD GAS BASE EXCESS 3.9 mmol/L (0.0-2.0); VENOUS BLOOD GAS PCO2 42 mmHg (40-60); VENOUS BLOOD PH 7.44 (7.32-7.43)
[2016-12-15 22:30] LABS: ALB/GLOB RATIO 1.2 (1.0-2.1); BILIRUBIN,TOTAL 0.5 mg/dL (0.2-1.3); POTASSIUM 5.5 mmol/L (3.6-5.2)
[2016-12-15 22:31] LABS: CALCIUM 8.5 mg/dl (8.6-10.4)
--- NOTE | 2016-12-15 22:34 | C.PDOC ---
History Of Present Illness Patient presents to the ER with a complaint of a worsening left AV shunt; patient had surgery 4 weeks ago, with jay still in place. Denies fever or chills. Time Seen by Provider: 12/15/16 22:34 Chief Complaint (Nursing): Abnormal Skin Integrity History Per: Patient History/Exam Limitations: no limitations Onset/Duration Of Symptoms: Days Location Of Injury: Left: Arm Severity: Moderate Pain Scale Rating Of: 4 Recent travel outside of the [place]: No Past Medical History Reviewed: Historical Data, Nursing Documentation, Vital Signs Vital Signs: Last Vital Signs Temp 98.1 F 12/16/16 01:13 Pulse 72 12/16/16 01:13 Resp 16 12/16/16 01:13 BP 168/66 H 12/16/16 01:13 Pulse Ox 95 12/16/16 01:13 - Medical History PMH: Anemia, Anxiety, CHF, Depression (BROTHER LAST YEAR), Diabetes, HTN, Hypercholesterolemia, End Stage Renal Disease, Chronic Kidney Disease Surgical History: Appendectomy, Endoscopy (OCTOBER 2013) - [facility] Procedures ANESTH INJECT-SPIN CANAL (01/08/15) ANGIOPLASTY OF OTHER NON-CORONARY VESSEL(S) (03/01/14) ATHERECTOMY OF OTHER NON-CORONARY VESSEL(S) (03/01/14) BYPASS L BASILIC VEIN TO UP VEIN W SYNTH SUB, OPEN (10/21/16) DILATION OF LEFT POPLITEAL ARTERY, PERCUTANEOUS APPROACH (10/21/16) DRAINAGE OF LEFT PLEURAL CAVITY, PERCUTANEOUS APPROACH (10/10/15) EXERCISE TREATMENT OF MUSCULOSK WHOLE USING ASSIST EQUIPMENT (10/17/15) GAIT TRAINING/AMBULAT TREATMENT USING ASSIST EQUIPMENT (10/17/15) HOME MANAGEMENT TREATMENT USING ASSIST EQUIPMENT (10/17/15) IMMOBILIZ/WOUND ATTN NEC (06/24/13) INJECT STEROID (01/08/15) INJECT/INFUSE NEC (01/08/14) INSEJ OF DRUG-ELUTING STENT(S) OF OTH PERIPHERAL VESSEL(S) (03/01/14) INSERT INFUSION DEV IN R INT JUGULAR VEIN, PERC (10/21/16) INSERTION OF INFUSION DEV INTO SUP VENA CAVA, PERC APPROACH (11/28/16) INSERTION OF TWO VASCULAR STENTS (03/01/14) INTRODUCE OF OTH ANTI-INFECT INTO PERIPH VEIN, PERC APPROACH (10/17/15) PERFORMANCE OF URINARY FILTRATION, MULTIPLE (11/28/16) PROCEDURE ON SINGLE VESSEL (03/01/14) SPINAL CANAL INJECT NEC (01/08/15) TRANSFUSE NONAUT RED BLOOD CELLS IN PERIPH VEIN, PERC (11/28/16) VACCINATION NEC (11/29/14) Family History: States: No Known Family Hx - Social History Hx Alcohol Use: No Hx Substance Use: No - Immunization History Hx Tetanus Toxoid Vaccination: No Hx Influenza Vaccination: No Hx Pneumococcal Vaccination: No Review Of Systems Constitutional: Negative for: Fever, Chills Skin: Positive for: Other (Worseing left AV shunt) Physical Exam - Physical Exam Appears: Non-toxic Skin: Warm, Dry Oral Mucosa: Moist Chest: Symmetrical, No Tenderness Cardiovascular: Rhythm Regular, No Murmur Respiratory: No Rales, No Rhonchi, No Wheezing Gastrointestinal/Abdominal: Soft, No Tenderness Extremity: Tenderness (Area of left AV shunt), Other (Induration and erythema around area of AV shunt.) Pulses: Left Radial: Normal, Right Radial: Normal Neurological/Psych: Oriented x3 ED Course And Treatment - Laboratory Results Result Diagrams: 12/15/16 22:12 12/15/16 22:12 ECG: Interpreted By Me, Viewed By Me ECG Rhythm: Sinus Rhythm (75), ST/T Changes (ant lat ischemic chenages), Nonspecific Changes O2 Sat by Pulse Oximetry: 96 Pulse Ox Interpretation: Normal Progress Note: EKG, CXR, and blood culture ordered. Disposition Discussed With : Chuy Cabrera Comment: accepted the pt on his service and took over the care at Doctor Will See Patient In The: Hospital Counseled Patient/Family Regarding: Studies Performed, Diagnosis - Disposition Disposition: HOSPITALIZED Disposition Time: 22:34 Condition: GOOD - Clinical Impression Clinical Impression: Wound infection after surgery, Cellulitis - Scribe Statement The provider has reviewed the documentation as recorded by the Scribe Juan Muniz All medical record entries made by the Oxanaibe were at my direction and personally dictated by me. I have reviewed the chart and agree that the record accurately reflects my personal performance of the history, physical exam, medical decision making, and the department course for this patient. I have also personally directed, reviewed, and agree with the discharge instructions and disposition. Decision To Admit - Pt Status Changed To: Hospital Disposition Of: Inpatient - Admit Certification Admit to Inpatient:: After my assessment, the patient will require hospitalization for at least two midnights. This is because of the severity of symptoms shown, intensity of services needed, and/or the medical risk in this patient being treated as an outpatient. - InPatient: Physician Admission Certification: I certify that this patient requires 2 or more midnights of care for the following reason:: After my assessment, the patient will require hospitalization for at least two midnights. This is because of the severity of symptoms shown, intensity of services needed, and/or the medical risk in this patient being treated as an outpatient. - . Bed Request Type: Regular Admitting Physician: Chuy Cabrera Patient Diagnosis: Wound infection after surgery, Cellulitis
[2016-12-16] MEDS ORDERED: Piperacillin/Tazobact 3.375 gm 100 ML IVPB STA (00:59)
[2016-12-16] MEDS ORDERED: Vancomycin 1 GM 1 GM/250 ML BAG IVPB STA (01:06)
[2016-12-16] MEDS ORDERED: Piperacillin/Tazobact 3.375 gm 100 ML IVPB ONE (01:09)
[2016-12-16] MEDS ORDERED: Vancomycin 1 GM 1 GM/250 ML BAG IVPB ONE (01:50)
--- NOTE | 2016-12-16 08:44 | RAD ---
PROCEDURE: CHEST RADIOGRAPH, 1 VIEW HISTORY: picc line placement COMPARISON: 10/30/2016 FINDINGS: LUNGS: Right PICC line with tip extending into the SVC. Other lines and tubes in stable position. Persistent moderate left pleural effusion with adjacent left basilar consolidation. Mild venous congestion. Patchy increased markings at the right lung base with a somewhat rounded nodular opacity at the right lung base which may represent confluence of shadows. PLEURA: As above. CARDIOVASCULAR: Cardiomegaly. Calcification at the aortic knob. OSSEOUS STRUCTURES: No significant abnormalities. VISUALIZED UPPER ABDOMEN: Normal. OTHER FINDINGS: Surgical clips in the left axilla. IMPRESSION: Right PICC line with tip extending into the SVC. Other lines and tubes in stable position. Persistent moderate left pleural effusion with adjacent left basilar consolidation. Mild venous congestion. Patchy increased markings at the right lung base with a somewhat rounded nodular opacity at the right lung base which may represent confluence of shadows.
[2016-12-16] MEDS ORDERED: Ergocalciferol 50,000 Intl Units Cap PO SCH (10:45)
[2016-12-16] MEDS: metOLazone 5 MG TAB PO SCH (11:23)
--- NOTE | 2016-12-16 11:46 | CP.PCM.CON ---
History of Present Illness - History of Present Illness History of Present Illness: complaint of a worsening left AV shunt; patient had surgery 4 weeks ago, with jay still in place will need revision/ removal of fistula iv rx ordered - Medical History PMH: Anemia, Anxiety, CHF, Depression (BROTHER LAST YEAR), Diabetes, HTN, Hypercholesterolemia, End Stage Renal Disease, Chronic Kidney Disease Surgical History: Appendectomy, Endoscopy (OCTOBER 2013) Review of Systems - Review of Systems All systems: reviewed and no additional remarkable complaints except - Constitutional Constitutional: As Per HPI, Fever - EENT Eyes: absent: As Per HPI, Blind Spots, Blurred Vision, Change in Vision, Decreased Night Vision, Diplopia, Discharge, Dry Eye, Exophthalmos, Floaters, Irritation, Itchy Eyes, Loss of Peripheral Vision, Pain, Photophobia, Requires Corrective Lenses, Sees Flashes, Spots in Vision, Tunnel Vision, Other Visual Disturbances, Loss of Vision, Other Ears: absent: As Per HPI, Decreased Hearing, Ear Discharge, Ear Pain, Tinnitus, Abnormal Hearing, Disequilibrium, Dizziness, Other Nose/Mouth/Throat: absent: As Per HPI, Epistaxis, Nasal Congestion, Nasal Discharge, Nasal Obstruction, Nasal Trauma, Nose Pain, Post Nasal Drip, Sinus Pain, Sinus Pressure, Bleeding Gums, Change in Voice, Dental Pain, Dry Mouth, Dysphagia, Halitosis, Hoarsness, Lip Swelling, Mouth Lesions, Mouth Pain, Odynophagia, Sore Throat, Throat Swelling, Tongue Swelling, Facial Pain, Neck Pain, Neck Mass, Other - Breasts Breasts: absent: As Per HPI, Change in Shape, Mass, Pain, Nipple Discharge, Nipple Inversion, Skin Changes, Swelling, Other - Cardiovascular Cardiovascular: absent: As Per HPI, Acrocyanosis, Chest Pain, Chest Pain at Rest , Chest Pain with Activity, Claudication, Diaphoresis, Dyspnea, Dyspnea on Exertion, Edema, Irregular Heart Rhythm, Pain Radiating to Arm/Neck/Jaw, Leg Edema, Leg Ulcers, Lightheadedness, Orthopnea, Palpitations, Paroxysmal Nocturnal Dyspnea, Pedal Edema, Radiating Pain, Rapid Heart Rate, Slow Heart Rate, Syncope, Other - Respiratory Respiratory: absent: As Per HPI, Cough, Dyspnea, Hemoptysis, Dyspnea on Exertion , Wheezing, Snoring, Stridor, Pain on Inspiration, Chest Congestion, Excessive Mucous Production, Change in Mucous Color, Pain with Coughing, Other - Gastrointestinal Gastrointestinal: absent: As Per HPI, Abdominal Pain, Belching, Bloating, Change in Bowel Habits, Change in Stool Character, Coffee Ground Emesis, Constipation, Cramping, Diarrhea, Dyspepsia, Dysphagia, Early Satiety, Excessive Flatus, Fecal Incontinence, Heartburn, Hematemesis, Hematochezia, Loose Stools, Melena, Nausea, Odynophagia, Temesmus, Vomiting, Other - Genitourinary Genitourinary: absent: As Per HPI, Change in Urinary Stream, Difficulty Urinating, Dysuria, Flank Pain, Hematuria, Pyuria, Nocturia, Urinary Incontinence, Urinary Frequency, Urinary Hesitance, Urinary Urgency, Voiding Freq/Small Amts, Freq UTI, Hx Renal/Bladder Calculi, Hx /Renal Surgery, Bladder Distension, Other - Reproductive: Female Reproductive:Female: absent: As Per HPI, Amenorrhea, Amenorrhea/ Control, Currently Menstual, Cycle <21 Days, Cycle >35 Days, Cycle Variable, Menses 1-7 Days, Menses >/= 8 Days, Menses Variable, Cycle > 4 Weeks Between, No Menses for 6 Months, Heavy Menses, Light Menses, Normal Menses, Spotting Between Cycles , S/P Hysterectomy, Menopausal, Post Menopausal, Premenarche, Abnormal Vaginal Bleeding, Dysmenorrhea, Dyspareunia, Genital Lesions, Genital Pruritis, Pelvic Pain, Prolapse Symptoms, Sexual Dysfunction, Vaginal Discharge, Vaginal Dryness , Vaginal Odor, Vaginal Pruritis, Other - Menstruation Menstruation: absent: As Per HPI, Amenorrhea, Amenorrhea/ Control, Currently Menstual, Cycle <21 Days, Cycle >35 Days, Cycle Variable, Menses 1-7 Days, Menses >/= 8 Days, Menses Variable, Cycle > 4 Weeks Between, No Menses for 6 Months, Heavy Menses, Light Menses, Normal Menses, Spotting Between Cycles , S/P Hysterectomy, Menopausal, Post Menopausal, Premenarche, Abnormal Vaginal Bleeding, Dysmenorrhea, Other - Musculoskeletal Musculoskeletal: As Per HPI - Integumentary Integumentary: As Per HPI - Neurological Neurological: absent: As Per HPI, Abnormal Gait, Abnormal Hearing, Abnormal Movements, Abnormal Speech, Behavioral Changes, Burning Sensations, Confusion, Convulsions, Disequilibrium, Dizziness, Numbness, Focal Weakness, Frequent Falls , Headaches, Lack of Coordination, Loss of Vision, Memory Loss, Paresthesias, Radicular Pain, Restless Legs, Sensory Deficit, Syncope, Tingling, Tremor, Vertigo, Weakness, Other Visual Disturbances, Other - Psychiatric Psychiatric: absent: As Per HPI, Abnormal Sleep Pattern, Anhedonia, Anxiety, Auditory Hallucinations, Behavioral Changes, Change in Appetite, Change in Libido, Confusion, Depression, Difficulty Concentrating, Hallucinations, Homicidal Ideation, Hopelessness, Irritability, Memory Loss, Mood Swings, Panic Attacks, Paranoia, Suicidal Ideation, Visual Hallucinations, Tactile Hallucinations, Other - Endocrine Endocrine: absent: As Per HPI, Change in Body Appearance, Change in Libido, Cold Intolorance, Deepening of Voice, Excessive Sweating, Fatigue, Flushing, Heat Intolorance, Increase in Ring/Shoe/Hat Size, Palpitations, Polydipsia, Polyphagia, Polyuria, Other - Hematologic/Lymphatic Hematologic: absent: As Per HPI, Easy Bleeding, Easy Bruising, Lymphadenopathy, Other Past Patient History - Infectious Disease Hx of Infectious Diseases: None - Tetanus Immunizations Tetanus Immunization: Unknown - Past Medical History & Family History Past Medical History?: Yes - Past Social History Smoking Status: Unknown If Ever Smoked - CARDIAC Hx Cardiac Disorders: Yes Hx Congestive Heart Failure: Yes Hx Hypercholesterolemia: Yes Hx Hypertension: Yes - PULMONARY Hx Respiratory Disorders: No - NEUROLOGICAL Hx Neurological Disorder: No - HEENT Hx HEENT Problems: Yes Hx Cataracts: Yes - RENAL Hx Chronic Kidney Disease: Yes Date of Last Dialysis Treatment: 12/13/16 - ENDOCRINE/METABOLIC Hx Endocrine Disorders: Yes Hx Diabetes Mellitus Type 2: Yes - HEMATOLOGICAL/ONCOLOGICAL Hx Blood Disorders: Yes Hx Anemia: Yes - INTEGUMENTARY Hx Dermatological Problems: No (VERY PALE) - MUSCULOSKELETAL/RHEUMATOLOGICAL Hx Musculoskeletal Disorders: Yes Hx Degenerative Joint Disease: Yes Hx Falls: No - GASTROINTESTINAL Hx Gastrointestinal Disorders: No - GENITOURINARY/GYNECOLOGICAL Hx Genitourinary Disorders: Yes Hx Urinary Tract Infection: Yes - PSYCHIATRIC Hx Psychophysiologic Disorder: Yes Hx Anxiety: Yes Hx Depression: Yes (BROTHER LAST YEAR) Hx Substance Use: No - SURGICAL HISTORY Hx Surgeries: Yes Hx Appendectomy: Yes Hx Vascular Access Device: Yes - ANESTHESIA Hx Anesthesia: Yes Hx Anesthesia Reactions: No Hx Malignant Hyperthermia: No Has any member of the family had a problem w/ anesthesia?: No Meds Allergies/Adverse Reactions: Allergies Allergy/AdvReac Type Severity Reaction Status Date / Time No Known Allergies Allergy Verified 12/15/16 22:01 - Medications Medications: Current Medications Acetaminophen (Tylenol 325mg Tab) 325 mg PO Q6H PRN PRN Reason: Fever >100.4 F Docusate Sodium (Colace) 100 mg PO TID [facility] Last Admin: 12/16/16 11:37 Dose: 100 mg Ergocalciferol (Drisdol 50,000 Intl Units Cap) 1 cap PO QWK [facility] Last Admin: 12/16/16 11:37 Dose: 1 cap Escitalopram Oxalate (Lexapro) 10 mg PO DAILY [facility] Last Admin: 12/16/16 11:37 Dose: 10 mg Furosemide (Lasix) 40 mg PO DAILY [facility] Last Admin: 12/16/16 11:23 Dose: Not Given Heparin Sodium (Porcine) (Heparin) 5,000 units SC Q12 [facility] Last Admin: 12/16/16 11:37 Dose: 5,000 units Hydralazine HCl (Apresoline) 25 mg PO Q12 [facility] Last Admin: 12/16/16 11:22 Dose: Not Given Piperacillin Sod/Tazobactam Sod (Zosyn 2.25 Gm Iv Premix) 2.25 gm in 50 mls @ 100 mls/hr IVPB Q8H [facility] Losartan Potassium (Cozaar) 100 mg PO DAILY [facility] Last Admin: 12/16/16 11:23 Dose: Not Given Metolazone (Zaroxolyn) 5 mg PO DAILY [facility] Last Admin: 12/16/16 11:23 Dose: Not Given Rosuvastatin Calcium (Crestor) 10 mg PO HS [facility] Sevelamer Carbonate (Renvela) 0.8 gm PO TIDCC [facility] Physical Exam - Constitutional Appears: Non-toxic, Chronically Ill - Head Exam Head Exam: NORMOCEPHALIC - Eye Exam Eye Exam: PERRL. absent: Scleral icterus - ENT Exam ENT Exam: Mucous Membranes Dry, Normal External Ear Exam - Neck Exam Neck exam: Negative for: Lymphadenopathy - Respiratory Exam Respiratory Exam: Decreased Breath Sounds - Cardiovascular Exam Cardiovascular Exam: REGULAR RHYTHM - GI/Abdominal Exam GI & Abdominal Exam: Diminished Bowel Sounds, Soft. absent: Tenderness - Rectal Exam Rectal Exam: Deferred - Exam Exam: NORMAL INSPECTION - Extremities Exam Extremities exam: Negative for: pedal edema - Back Exam Back exam: absent: CVA tenderness (L) - Neurological Exam Neurological exam: Alert, Oriented x3 - Psychiatric Exam Psychiatric exam: Depressed - Skin Skin Exam: Dry Additional comments: left arm av fistula with drainage Results - Vital Signs Recent Vital Signs: Last Vital Signs Temp 98.1 F 12/16/16 07:45 Pulse 83 12/16/16 07:45 Resp 20 12/16/16 07:45 BP 151/69 H 12/16/16 11:27 Pulse Ox 96 12/16/16 07:45 - Labs Result Diagrams: 12/15/16 22:12 12/15/16 22:12 Labs: Laboratory Results - last 24 hr 12/16/16 12/16/16 07:29 11:08 POC Glucose (mg/dL) 144 H 385 H Assessment & Plan (1) Cellulitis Status: Acute (2) Wound infection after surgery Status: Acute (3) Acute exacerbation of CHF (congestive heart failure) Status: Acute (4) Foot ulcer Status: Acute (5) CKD (chronic kidney disease) stage 3, GFR 30-59 ml/min Status: Chronic (6) DM2 (diabetes mellitus, type 2) Status: Chronic Priority: Medium - Assessment and Plan (Free Text) Assessment: will need removal of graft cont wound care left heel cont iv antibiotics
[2016-12-16] MEDS: (Novolin R) Insulin Human Regular 100 units/ml vial SC SCH ×3 (12:41→18:32)
[2016-12-16] MEDS: Sevelamer Carb 0.8 gm/Packet PO SCH ×2 (12:41→17:56)
[2016-12-16] MEDS: Piperacill/Tazo 2.25gm in Dex 2.25 GM/50 ML BAG IVPB SCH ×2 (14:49→21:32)
[2016-12-16] MEDS: (Lantus) Insulin Glargine, Recombinant SC SCH (21:30)
--- NOTE | 2016-12-16 22:38 | HP ---
HISTORY OF PRESENT ILLNESS: This is a 71-year-old female came to the emergency room with history of worsening left AV shunt. The patient had surgery 4 weeks ago with staple in place. Denies fever or chills. The patient complained of pain in the left arm. The patient also has cellulitis, left arm. REVIEW OF SYSTEMS: CARDIOVASCULAR SYSTEM: Negative for chest pain. RESPIRATORY SYSTEM: Negative for shortness of breath. GASTROINTESTINAL SYSTEM: Negative for nausea, vomiting, abdominal pain. CENTRAL NERVOUS SYSTEM: No focal neurological complaints offered. EXTREMITIES: No edema of the legs. Left arm, as mentioned above. PSYCHIATRIC: The patient is stable. All other systems are negative. PAST HISTORY: History of anemia, anxiety, congestive heart failure, depression, diabetes, hypertension, hypercholesterolemia, endstage renal disease. Chronic kidney disease. The patient had appendectomy in the past. ALLERGIES: NO KNOWN ALLERGY. FAMILY HISTORY: No known inherited disease. SOCIAL HISTORY: Nonsmoker, nonalcoholic. No IVDA. MEDICATIONS: Medications are reviewed by me. PHYSICAL EXAMINATION: GENERAL: This is a 71-year-old female, awake, comfortable. VITAL SIGNS: Temperature 98.1, pulse 72, respirations 16, blood pressure 168/66 mmHg, pulse ox is 95% on room air. HEENT: Normal. NECK: JVP is flat. Carotids, no bruits. LUNGS: No rales. No wheezing. HEART: S1 and S2 normal. No gallop. No murmur. ABDOMEN: Soft, nontender. No organomegaly. CENTRAL NERVOUS SYSTEM: No focal neurological deficits. EXTREMITIES: Left arm AV shunt is infected with cellulitis. LABORATORY WORK Shows normal CBC. Potassium is 5.5. BUN and creatinine are elevated. Blood sugar is 362. Chest x-ray shows left moderate pleural effusion and possible consolidation. DIAGNOSES: Infected left arm arteriovenous shunt with cellulitis. Chronic renal failure. Hypertension. Diabetes. Hyperkalemia. PLAN: The patient will be admitted to the floor. We will get consult with infectious disease and surgery. We will also consult with nephrology for dialysis. We will continue on the medication. IV antibiotics. Chuy Cabrera MD
[2016-12-17] MEDS: Piperacill/Tazo 2.25gm in Dex 2.25 GM/50 ML BAG IVPB SCH ×3 (06:20→21:32)
[2016-12-17] MEDS: (Novolin R) Insulin Human Regular 100 units/ml vial SC SCH ×5 (08:22→21:31)
[2016-12-17] MEDS: Sevelamer Carb 0.8 gm/Packet PO SCH ×4 (08:27→17:02)
--- NOTE | 2016-12-17 08:56 | CARD ---
APPROVED REPORT EKG Measurement Heart [id number] <Conclusion> Normal sinus rhythm T wave abnormality, consider anterolateral ischemia Abnormal ECG
[2016-12-17] MEDS: Vancomycin 500mg/D5W 100 ml 500 MG/100 ML BAG IVPB SCH (09:27)
[2016-12-17] MEDS: metOLazone 5 MG TAB PO SCH (09:28)
--- NOTE | 2016-12-17 12:07 | CP.PCM.PN ---
Subjective - Date & Time of Evaluation Date of Evaluation: 12/17/16 Time of Evaluation: 12:04 - Subjective Subjective: CONDITION SAME. CELLULITIS PRESENT. AFEBRILE. BLOOD C/S NEG. EVALUATED BY DR. US. BLOOD SUGAR FLUCTUATING. Objective - Vital Signs/Intake and Output Vital Signs (last 24 hours): Temp Pulse Resp BP Pulse Ox 98.1 F 80 20 136/63 97 12/17/16 08:00 12/17/16 08:00 12/17/16 08:00 12/17/16 09:28 12/17/16 08:00 Intake and Output: 12/17/16 12/17/16 06:59 18:59 Intake Total 240 Balance 240 - Medications Medications: Current Medications Acetaminophen (Tylenol 325mg Tab) 325 mg PO Q6H PRN PRN Reason: Fever >100.4 F Docusate Sodium (Colace) 100 mg PO TID [facility] Last Admin: 12/17/16 09:30 Dose: Not Given Ergocalciferol (Drisdol 50,000 Intl Units Cap) 1 cap PO QWK [facility] Last Admin: 12/16/16 11:37 Dose: 1 cap Escitalopram Oxalate (Lexapro) 10 mg PO DAILY [facility] Last Admin: 12/17/16 09:29 Dose: 10 mg Furosemide (Lasix) 40 mg PO DAILY [facility] Last Admin: 12/17/16 09:28 Dose: 40 mg Heparin Sodium (Porcine) (Heparin) 5,000 units SC Q12 [facility] Last Admin: 12/17/16 09:29 Dose: 5,000 units Hydralazine HCl (Apresoline) 25 mg PO Q12 [facility] Last Admin: 12/17/16 09:28 Dose: 25 mg Piperacillin Sod/Tazobactam Sod (Zosyn 2.25 Gm Iv Premix) 2.25 gm in 50 mls @ 100 mls/hr IVPB Q8H [facility] Last Admin: 12/17/16 06:20 Dose: 100 mls/hr Vancomycin HCl/Dextrose (Vancocin) 500 mg in 100 mls @ 67 mls/hr IVPB MWF [facility] Stop: 12/22/16 09:01 Last Admin: 12/17/16 09:27 Dose: 67 mls/hr Insulin Glargine (Lantus) 20 unit SC [facility] Last Admin: 12/16/16 21:30 Dose: 20 units Insulin Human Regular (Novolin R) 0 unit SC ACHS ELINA PRN Reason: Protocol Last Admin: 12/17/16 08:22 Dose: Not Given Losartan Potassium (Cozaar) 100 mg PO DAILY [facility] Last Admin: 12/17/16 09:29 Dose: 100 mg Metolazone (Zaroxolyn) 5 mg PO DAILY [facility] Last Admin: 12/17/16 09:28 Dose: 5 mg Ondansetron HCl (Zofran Inj) 4 mg IVP Q8H PRN PRN Reason: Nausea/Vomiting Last Admin: 12/16/16 12:51 Dose: 4 mg Rosuvastatin Calcium (Crestor) 10 mg PO HS [facility] Last Admin: 12/16/16 21:30 Dose: 10 mg Sevelamer Carbonate (Renvela) 0.8 gm PO TIDCC [facility] Last Admin: 12/17/16 08:27 Dose: Not Given - Constitutional Appears: No Acute Distress, Chronically Ill - Eye Exam Eye Exam: Normal appearance, PERRL - ENT Exam ENT Exam: Mucous Membranes Moist - Neck Exam Neck Exam: Normal Inspection - Respiratory Exam Respiratory Exam: Clear to Ausculation Bilateral, NORMAL BREATHING PATTERN - Cardiovascular Exam Cardiovascular Exam: REGULAR RHYTHM, +S1, +S2 - GI/Abdominal Exam GI & Abdominal Exam: Soft, Normal Bowel Sounds - Extremities Exam Extremities Exam: Full ROM, Normal Capillary Refill, Normal Inspection. absent : Joint Swelling, Pedal Edema - Back Exam Back Exam: NORMAL INSPECTION - Neurological Exam Neurological Exam: Alert, Awake, CN II-XII Intact, Normal Gait, Oriented x3 - Psychiatric Exam Psychiatric exam: Normal Affect, Normal Mood Assessment and Plan - Assessment and Plan (Free Text) Assessment: CELLULITIS LT ARM. AV SHUNT INFECTION. FLUCTUATING BS. Plan: FOR HD. CT IV ANTIBIOTICS. FOR FELICIANO.
--- NOTE | 2016-12-17 18:13 | CP.PCM.PN ---
Subjective - Date & Time of Evaluation Date of Evaluation: 12/17/16 Time of Evaluation: 09:00 - Subjective Subjective: events noted cultures pending iv rx renewed may need removal av fistula Objective - Vital Signs/Intake and Output Vital Signs (last 24 hours): Temp Pulse Resp BP Pulse Ox 98.2 F 69 20 125/63 98 12/17/16 16:18 12/17/16 16:18 12/17/16 16:18 12/17/16 16:18 12/17/16 16:18 Intake and Output: 12/17/16 12/17/16 06:59 18:59 Intake Total 630 Balance 630 - Medications Medications: Current Medications Acetaminophen (Tylenol 325mg Tab) 325 mg PO Q6H PRN PRN Reason: Fever >100.4 F Docusate Sodium (Colace) 100 mg PO TID [facility] Last Admin: 12/17/16 16:59 Dose: 100 mg Ergocalciferol (Drisdol 50,000 Intl Units Cap) 1 cap PO QWK [facility] Last Admin: 12/16/16 11:37 Dose: 1 cap Escitalopram Oxalate (Lexapro) 10 mg PO DAILY [facility] Last Admin: 12/17/16 09:29 Dose: 10 mg Furosemide (Lasix) 40 mg PO DAILY [facility] Last Admin: 12/17/16 09:28 Dose: 40 mg Heparin Sodium (Porcine) (Heparin) 5,000 units SC Q12 [facility] Last Admin: 12/17/16 09:29 Dose: 5,000 units Hydralazine HCl (Apresoline) 25 mg PO Q12 [facility] Last Admin: 12/17/16 09:28 Dose: 25 mg Piperacillin Sod/Tazobactam Sod (Zosyn 2.25 Gm Iv Premix) 2.25 gm in 50 mls @ 100 mls/hr IVPB Q8H [facility] Last Admin: 12/17/16 14:12 Dose: 100 mls/hr Vancomycin HCl/Dextrose (Vancocin) 500 mg in 100 mls @ 67 mls/hr IVPB MWF [facility] Stop: 12/22/16 09:01 Last Admin: 12/17/16 09:27 Dose: 67 mls/hr Insulin Glargine (Lantus) 20 unit SC HS [facility] Last Admin: 12/16/16 21:30 Dose: 20 units Insulin Human Regular (Novolin R) 0 unit SC ACHS [facility] PRN Reason: Protocol Last Admin: 12/17/16 17:00 Dose: 8 unit Losartan Potassium (Cozaar) 100 mg PO DAILY [facility] Last Admin: 12/17/16 09:29 Dose: 100 mg Metolazone (Zaroxolyn) 5 mg PO DAILY [facility] Last Admin: 12/17/16 09:28 Dose: 5 mg Ondansetron HCl (Zofran Inj) 4 mg IVP Q8H PRN PRN Reason: Nausea/Vomiting Last Admin: 12/16/16 12:51 Dose: 4 mg Rosuvastatin Calcium (Crestor) 10 mg PO HS [facility] Last Admin: 12/16/16 21:30 Dose: 10 mg Sevelamer Carbonate (Renvela) 0.8 gm PO TIDCC [facility] Last Admin: 12/17/16 17:02 Dose: Not Given - Constitutional Appears: Non-toxic, Chronically Ill - Head Exam Head Exam: NORMOCEPHALIC - Eye Exam Eye Exam: PERRL - ENT Exam ENT Exam: Mucous Membranes Dry, Normal External Ear Exam - Neck Exam Neck Exam: absent: Lymphadenopathy - Respiratory Exam Respiratory Exam: Decreased Breath Sounds, Clear to Ausculation Bilateral - Cardiovascular Exam Cardiovascular Exam: REGULAR RHYTHM - GI/Abdominal Exam GI & Abdominal Exam: Distended, Soft - Rectal Exam Rectal Exam: Deferred Assessment and Plan (1) Cellulitis Status: Acute (2) Wound infection after surgery Status: Acute (3) Acute exacerbation of CHF (congestive heart failure) Status: Acute (4) Foot ulcer Status: Acute (5) CKD (chronic kidney disease) stage 3, GFR 30-59 ml/min Status: Chronic (6) DM2 (diabetes mellitus, type 2) Status: Chronic
[2016-12-17] MEDS: (Lantus) Insulin Glargine, Recombinant SC SCH (21:28)
--- NOTE | 2016-12-17 23:08 | CP.PCM.CON ---
History of Present Illness - History of Present Illness History of Present Illness: REASONS FOR CONSULT: ESRD ON HD TTS HYPERKALEMIA .. K 5.4 ANEMIA OF CKD .. H/H GOOD ANASAR[facility] ALL EMR REVIEWED .. PT WAS SEEN AND EXAMINED complaint of a worsening left AV shunt; patient had surgery 4 weeks ago, with jay still in place will need revision/ removal of fistula iv rx ordered - Medical History PMH: Anemia, Anxiety, CHF, Depression (BROTHER LAST YEAR), Diabetes, HTN, Hypercholesterolemia, End Stage Renal Disease, Chronic Kidney Disease Surgical History: Appendectomy, Endoscopy (OCTOBER 2013) Past Patient History - Infectious Disease Hx of Infectious Diseases: None - Tetanus Immunizations Tetanus Immunization: Unknown - Past Medical History & Family History Past Medical History?: Yes - Past Social History Smoking Status: Unknown If Ever Smoked - CARDIAC Hx Cardiac Disorders: Yes Hx Congestive Heart Failure: Yes Hx Hypercholesterolemia: Yes Hx Hypertension: Yes - PULMONARY Hx Respiratory Disorders: No - NEUROLOGICAL Hx Neurological Disorder: No - HEENT Hx HEENT Problems: Yes Hx Cataracts: Yes - RENAL Hx Chronic Kidney Disease: Yes Date of Last Dialysis Treatment: 12/13/16 - ENDOCRINE/METABOLIC Hx Endocrine Disorders: Yes Hx Diabetes Mellitus Type 2: Yes - HEMATOLOGICAL/ONCOLOGICAL Hx Blood Disorders: Yes Hx Anemia: Yes - INTEGUMENTARY Hx Dermatological Problems: No (VERY PALE) - MUSCULOSKELETAL/RHEUMATOLOGICAL Hx Musculoskeletal Disorders: Yes Hx Degenerative Joint Disease: Yes Hx Falls: No - GASTROINTESTINAL Hx Gastrointestinal Disorders: No - GENITOURINARY/GYNECOLOGICAL Hx Genitourinary Disorders: Yes Hx Urinary Tract Infection: Yes - PSYCHIATRIC Hx Psychophysiologic Disorder: Yes Hx Anxiety: Yes Hx Depression: Yes (BROTHER LAST YEAR) Hx Substance Use: No - SURGICAL HISTORY Hx Surgeries: Yes Hx Appendectomy: Yes Hx Vascular Access Device: Yes - ANESTHESIA Hx Anesthesia: Yes Hx Anesthesia Reactions: No Hx Malignant Hyperthermia: No Has any member of the family had a problem w/ anesthesia?: No Meds Allergies/Adverse Reactions: Allergies Allergy/AdvReac Type Severity Reaction Status Date / Time No Known Allergies Allergy Verified 12/15/16 22:01 - Medications Medications: Current Medications Acetaminophen (Tylenol 325mg Tab) 325 mg PO Q6H PRN PRN Reason: Fever >100.4 F Docusate Sodium (Colace) 100 mg PO TID [facility] Last Admin: 12/17/16 16:59 Dose: 100 mg Ergocalciferol (Drisdol 50,000 Intl Units Cap) 1 cap PO QWK [facility] Last Admin: 12/16/16 11:37 Dose: 1 cap Escitalopram Oxalate (Lexapro) 10 mg PO DAILY [facility] Last Admin: 12/17/16 09:29 Dose: 10 mg Furosemide (Lasix) 40 mg PO DAILY [facility] Last Admin: 12/17/16 09:28 Dose: 40 mg Heparin Sodium (Porcine) (Heparin) 5,000 units SC Q12 [facility] Last Admin: 12/17/16 21:28 Dose: 5,000 units Hydralazine HCl (Apresoline) 25 mg PO Q12 [facility] Last Admin: 12/17/16 21:31 Dose: 25 mg Piperacillin Sod/Tazobactam Sod (Zosyn 2.25 Gm Iv Premix) 2.25 gm in 50 mls @ 100 mls/hr IVPB Q8H [facility] Last Admin: 12/17/16 21:32 Dose: 100 mls/hr Vancomycin HCl/Dextrose (Vancocin) 500 mg in 100 mls @ 67 mls/hr IVPB MWF [facility] Stop: 12/22/16 09:01 Last Admin: 12/17/16 09:27 Dose: 67 mls/hr Insulin Glargine (Lantus) 20 unit SC [facility] Last Admin: 12/17/16 21:28 Dose: 20 units Insulin Human Regular (Novolin R) 0 unit SC ACHS [facility] PRN Reason: Protocol Last Admin: 12/17/16 21:31 Dose: 3 unit Losartan Potassium (Cozaar) 100 mg PO DAILY [facility] Last Admin: 12/17/16 09:29 Dose: 100 mg Metolazone (Zaroxolyn) 5 mg PO DAILY [facility] Last Admin: 12/17/16 09:28 Dose: 5 mg Ondansetron HCl (Zofran Inj) 4 mg IVP Q8H PRN PRN Reason: Nausea/Vomiting Last Admin: 12/16/16 12:51 Dose: 4 mg Rosuvastatin Calcium (Crestor) 10 mg PO HS [facility] Last Admin: 12/17/16 21:31 Dose: 10 mg Sevelamer Carbonate (Renvela) 0.8 gm PO TIDCC [facility] Last Admin: 12/17/16 17:02 Dose: Not Given Results - Vital Signs Recent Vital Signs: Last Vital Signs Temp 98.2 F 12/17/16 16:18 Pulse 69 12/17/16 16:18 Resp 20 12/17/16 16:18 BP 125/63 12/17/16 16:18 Pulse Ox 98 12/17/16 16:18 - Labs Result Diagrams: 12/15/16 22:12 12/15/16 22:12 Labs: Laboratory Results - last 24 hr 12/17/16 12/17/16 12/17/16 07:32 08:02 11:22 POC Glucose (mg/dL) 68 146 H 367 H 12/17/16 12/17/16 16:06 20:56 POC Glucose (mg/dL) 380 H 357 H Assessment & Plan - Assessment and Plan (Free Text) Assessment: ESRD ON HD TTS .. TO BE CONTINUED ANEMIA OF CKD .. H/H GOOD HYPERKALEMIA .. NOT TOO BAD .. HD SEPSIS ON IVAB PER DR INFANTE MULTIPLE CO MORBIDITIES . P ; c/o current care will f/u closely - Date & Time Date: 12/17/16 Time: 15:00
[2016-12-18] MEDS: Piperacill/Tazo 2.25gm in Dex 2.25 GM/50 ML BAG IVPB SCH ×3 (05:27→21:06)
[2016-12-18] MEDS: Sevelamer Carb 0.8 gm/Packet PO SCH ×3 (08:10→16:50)
[2016-12-18] MEDS: (Novolin R) Insulin Human Regular 100 units/ml vial SC SCH ×4 (08:11→22:53)
[2016-12-18] MEDS: metOLazone 5 MG TAB PO SCH (09:35)
[2016-12-18 09:40] LABS: BASO # 0.2 K/uL (0.0-0.2); BASO % 1.9 % (0.0-2.0); EOS # 0.5 K/uL (0.0-0.7); HEMATOCRIT 35.3 % (34.0-47.0); LYMPH # 1.3 K/uL (1.0-4.3); LYMPH % 14.9 % (20.0-40.0); MEAN CELL VOLUME 96.1 fL (81.0-99.0); MEAN CORPUSCULAR HEMOGLOBIN 30.2 pg (27.0-31.0); MEAN CORPUSCULAR HGB CONC 31.4 g/dL (33.0-37.0); MEAN PLATELET VOLUME 9.8 fL (7.2-11.7); MONO # 1.2 K/uL (0.0-0.8); MONO % 13.7 % (0.0-10.0); RED CELL DISTRIBUTION WIDTH 17.1 % (11.5-14.5); WHITE BLOOD COUNT 8.6 K/uL (4.8-10.8)
[2016-12-18 09:48] LABS: POTASSIUM 5.7 mmol/L (3.6-5.2)
[2016-12-18 09:49] LABS: CALCIUM 8.2 mg/dl (8.6-10.4); PHOSPHOROUS 8.3 mg/dL (2.5-4.5)
[2016-12-18] MEDS ORDERED: Pneumococcal 23-Valent Vaccine IM ONE (10:00)
--- NOTE | 2016-12-18 12:39 | CP.PCM.PN ---
Subjective - Date & Time of Evaluation Date of Evaluation: 12/18/16 Time of Evaluation: 12:36 - Subjective Subjective: CONDITION IMPROVED. LT ARM ULCER PRESENT , NO DISCHARGE, NO SMELL. AFEBRILE. VS WNL. ID, RENAL AND SURGICAL EVAL NOTED. Objective - Vital Signs/Intake and Output Vital Signs (last 24 hours): Temp Pulse Resp BP Pulse Ox 97.8 F 83 16 155/56 H 100 12/18/16 09:10 12/18/16 12:00 12/18/16 12:00 12/18/16 12:00 12/18/16 12:00 Intake and Output: 12/18/16 12/18/16 06:59 18:59 Intake Total 200 Balance 200 - Medications Medications: Current Medications Acetaminophen (Tylenol 325mg Tab) 325 mg PO Q6H PRN PRN Reason: Fever >100.4 F Last Admin: 12/18/16 10:43 Dose: 325 mg Docusate Sodium (Colace) 100 mg PO TID [facility] Last Admin: 12/18/16 09:35 Dose: Not Given Ergocalciferol (Drisdol 50,000 Intl Units Cap) 1 cap PO QWK [facility] Last Admin: 12/16/16 11:37 Dose: 1 cap Escitalopram Oxalate (Lexapro) 10 mg PO DAILY [facility] Last Admin: 12/18/16 09:35 Dose: Not Given Furosemide (Lasix) 40 mg PO DAILY [facility] Last Admin: 12/18/16 09:35 Dose: Not Given Heparin Sodium (Porcine) (Heparin) 5,000 units SC Q12 [facility] Last Admin: 12/18/16 09:35 Dose: Not Given Hydralazine HCl (Apresoline) 25 mg PO Q12 [facility] Last Admin: 12/18/16 09:35 Dose: Not Given Piperacillin Sod/Tazobactam Sod (Zosyn 2.25 Gm Iv Premix) 2.25 gm in 50 mls @ 100 mls/hr IVPB Q8H [facility] Last Admin: 12/18/16 05:27 Dose: 100 mls/hr Vancomycin HCl/Dextrose (Vancocin) 500 mg in 100 mls @ 67 mls/hr IVPB MWF [facility] Stop: 12/22/16 09:01 Last Admin: 12/17/16 09:27 Dose: 67 mls/hr Insulin Glargine (Lantus) 20 unit SC HS [facility] Last Admin: 12/17/16 21:28 Dose: 20 units Insulin Human Regular (Novolin R) 0 unit SC ACHS [facility] PRN Reason: Protocol Last Admin: 12/18/16 12:33 Dose: 2 unit Losartan Potassium (Cozaar) 100 mg PO DAILY [facility] Last Admin: 12/18/16 09:35 Dose: Not Given Metolazone (Zaroxolyn) 5 mg PO DAILY [facility] Last Admin: 12/18/16 09:35 Dose: Not Given Ondansetron HCl (Zofran Inj) 4 mg IVP Q8H PRN PRN Reason: Nausea/Vomiting Last Admin: 12/16/16 12:51 Dose: 4 mg Rosuvastatin Calcium (Crestor) 10 mg PO HS [facility] Last Admin: 12/17/16 21:31 Dose: 10 mg Sevelamer Carbonate (Renvela) 0.8 gm PO TIDCC [facility] Last Admin: 12/18/16 12:34 Dose: Not Given - Labs Labs: 12/18/16 09:30 12/18/16 09:30 - Constitutional Appears: No Acute Distress, Chronically Ill - Eye Exam Eye Exam: Normal appearance, PERRL - ENT Exam ENT Exam: Mucous Membranes Moist - Respiratory Exam Respiratory Exam: Clear to Ausculation Bilateral, NORMAL BREATHING PATTERN - Cardiovascular Exam Cardiovascular Exam: REGULAR RHYTHM, +S1, +S2 - GI/Abdominal Exam GI & Abdominal Exam: Soft, Normal Bowel Sounds - Extremities Exam Extremities Exam: Full ROM, Normal Capillary Refill, Normal Inspection. absent : Joint Swelling, Pedal Edema - Back Exam Back Exam: NORMAL INSPECTION Assessment and Plan - Assessment and Plan (Free Text) Assessment: LT ARM INFECTED AV SHUNT. HEEL ULCER. CRF. DM. SEPSIS RULED OUT. Plan: DISCUSSED WITH ID, FOR DISCHARGE HOME(FAMILY REFUSES FELICIANO.). FOR WOUND CARE. VANCOMYCIN AFTER DIALYSIS FOR 3 WKS. DISCHARGE HOME.
[2016-12-18 16:40] VITALS: RESP 20
--- NOTE | 2016-12-18 19:47 | CP.PCM.PN ---
Subjective - Date & Time of Evaluation Date of Evaluation: 12/18/16 Time of Evaluation: 16:00 - Subjective Subjective: SEEN ON RENAL F/U HAD HD EARLIAR .. TOLERATED WELL LEG EDEMA MUCH BETTER FEELS IMPROVED D/W PT AND ABOUT D/C AND IV VANCO AN OUT PT ON HD PT AND DO NOT WANT REHAB CENTER .. THEY WANT HOME Objective - Vital Signs/Intake and Output Vital Signs (last 24 hours): Temp Pulse Resp BP Pulse Ox 98.5 F 79 20 149/65 96 12/18/16 15:00 12/18/16 15:00 12/18/16 15:00 12/18/16 15:00 12/18/16 15:00 Intake and Output: 12/18/16 12/19/16 18:59 06:59 Intake Total 290 Balance 290 - Medications Medications: Current Medications Acetaminophen (Tylenol 325mg Tab) 325 mg PO Q6H PRN PRN Reason: Fever >100.4 F Last Admin: 12/18/16 10:43 Dose: 325 mg Docusate Sodium (Colace) 100 mg PO TID [facility] Last Admin: 12/18/16 17:25 Dose: Not Given Ergocalciferol (Drisdol 50,000 Intl Units Cap) 1 cap PO QWK [facility] Last Admin: 12/16/16 11:37 Dose: 1 cap Escitalopram Oxalate (Lexapro) 10 mg PO DAILY [facility] Last Admin: 12/18/16 09:35 Dose: Not Given Furosemide (Lasix) 40 mg PO DAILY [facility] Last Admin: 12/18/16 09:35 Dose: Not Given Heparin Sodium (Porcine) (Heparin) 5,000 units SC Q12 [facility] Last Admin: 12/18/16 09:35 Dose: Not Given Hydralazine HCl (Apresoline) 25 mg PO Q12 [facility] Last Admin: 12/18/16 09:35 Dose: Not Given Piperacillin Sod/Tazobactam Sod (Zosyn 2.25 Gm Iv Premix) 2.25 gm in 50 mls @ 100 mls/hr IVPB Q8H [facility] Last Admin: 12/18/16 13:06 Dose: 100 mls/hr Vancomycin HCl/Dextrose (Vancocin) 500 mg in 100 mls @ 67 mls/hr IVPB MWF [facility] Stop: 12/22/16 09:01 Last Admin: 12/17/16 09:27 Dose: 67 mls/hr Insulin Glargine (Lantus) 20 unit SC HS [facility] Last Admin: 12/17/16 21:28 Dose: 20 units Insulin Human Regular (Novolin R) 0 unit SC ACHS [facility] PRN Reason: Protocol Last Admin: 12/18/16 16:51 Dose: 10 unit Losartan Potassium (Cozaar) 100 mg PO DAILY [facility] Last Admin: 12/18/16 09:35 Dose: Not Given Metolazone (Zaroxolyn) 5 mg PO DAILY [facility] Last Admin: 12/18/16 09:35 Dose: Not Given Ondansetron HCl (Zofran Inj) 4 mg IVP Q8H PRN PRN Reason: Nausea/Vomiting Last Admin: 12/16/16 12:51 Dose: 4 mg Rosuvastatin Calcium (Crestor) 10 mg PO HS [facility] Last Admin: 12/17/16 21:31 Dose: 10 mg Sevelamer Carbonate (Renvela) 0.8 gm PO TIDCC [facility] Last Admin: 12/18/16 16:50 Dose: Not Given - Labs Labs: 12/18/16 09:30 12/18/16 09:30 Assessment and Plan - Assessment and Plan (Free Text) Assessment: ESRD ON HD TTS .. TO BE C/O ANEMIA OF CKD .. H/H STABLE SEPSIS ON L ARM AVF AND L FOOT .. 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
[2016-12-18] MEDS: (Lantus) Insulin Glargine, Recombinant SC SCH (22:53)
[2016-12-19] MEDS: Piperacill/Tazo 2.25gm in Dex 2.25 GM/50 ML BAG IVPB SCH (05:28)
[2016-12-19] MEDS: Sevelamer Carb 0.8 gm/Packet PO SCH ×2 (08:05→12:16)
[2016-12-19] MEDS: (Novolin R) Insulin Human Regular 100 units/ml vial SC SCH ×2 (08:05→12:14)
[2016-12-19] MEDS: metOLazone 5 MG TAB PO SCH (09:37)
[2016-12-19] MEDS: Vancomycin 500mg/D5W 100 ml 500 MG/100 ML BAG IVPB SCH (10:38)
--- NOTE | 2016-12-19 12:44 | CP.PCM.PN ---
Subjective - Date & Time of Evaluation Date of Evaluation: 12/19/16 Time of Evaluation: 12:43 - Subjective Subjective: CONDITION STABLE. Objective - Vital Signs/Intake and Output Vital Signs (last 24 hours): Temp Pulse Resp BP Pulse Ox 98.4 F 75 20 138/72 98 12/18/16 23:26 12/18/16 23:26 12/18/16 23:26 12/19/16 09:41 12/18/16 23:26 Intake and Output: 12/19/16 12/19/16 06:59 18:59 Intake Total 700 Balance 700 - Medications Medications: Current Medications Acetaminophen (Tylenol 325mg Tab) 325 mg PO Q6H PRN PRN Reason: Fever >100.4 F Last Admin: 12/18/16 10:43 Dose: 325 mg Docusate Sodium (Colace) 100 mg PO TID [facility] Last Admin: 12/19/16 09:37 Dose: Not Given Ergocalciferol (Drisdol 50,000 Intl Units Cap) 1 cap PO QWK [facility] Last Admin: 12/16/16 11:37 Dose: 1 cap Escitalopram Oxalate (Lexapro) 10 mg PO DAILY [facility] Last Admin: 12/19/16 09:37 Dose: 10 mg Furosemide (Lasix) 40 mg PO DAILY [facility] Last Admin: 12/19/16 09:41 Dose: 40 mg Heparin Sodium (Porcine) (Heparin) 5,000 units SC Q12 [facility] Last Admin: 12/19/16 09:37 Dose: 5,000 units Hydralazine HCl (Apresoline) 25 mg PO Q12 [facility] Last Admin: 12/19/16 09:37 Dose: 25 mg Piperacillin Sod/Tazobactam Sod (Zosyn 2.25 Gm Iv Premix) 2.25 gm in 50 mls @ 100 mls/hr IVPB Q8H [facility] Last Admin: 12/19/16 05:28 Dose: 100 mls/hr Vancomycin HCl/Dextrose (Vancocin) 500 mg in 100 mls @ 67 mls/hr IVPB MWF [facility] Stop: 12/22/16 09:01 Last Admin: 12/19/16 10:38 Dose: 67 mls/hr Insulin Glargine (Lantus) 20 unit SC HS [facility] Last Admin: 12/18/16 22:53 Dose: 20 units Insulin Human Regular (Novolin R) 0 unit SC ACHS [facility] PRN Reason: Protocol Last Admin: 12/19/16 12:14 Dose: 6 unit Losartan Potassium (Cozaar) 100 mg PO DAILY [facility] Last Admin: 12/19/16 09:37 Dose: 100 mg Metolazone (Zaroxolyn) 5 mg PO DAILY [facility] Last Admin: 12/19/16 09:37 Dose: 5 mg Ondansetron HCl (Zofran Inj) 4 mg IVP Q8H PRN PRN Reason: Nausea/Vomiting Last Admin: 12/16/16 12:51 Dose: 4 mg Rosuvastatin Calcium (Crestor) 10 mg PO HS [facility] Last Admin: 12/18/16 21:05 Dose: 10 mg Sevelamer Carbonate (Renvela) 0.8 gm PO TIDCC [facility] Last Admin: 12/19/16 12:16 Dose: Not Given - Labs Labs: 12/18/16 09:30 12/18/16 09:30 - Constitutional Appears: No Acute Distress, Chronically Ill - Eye Exam Eye Exam: Normal appearance, PERRL - ENT Exam ENT Exam: Mucous Membranes Moist - Respiratory Exam Respiratory Exam: Clear to Ausculation Bilateral, NORMAL BREATHING PATTERN - Cardiovascular Exam Cardiovascular Exam: REGULAR RHYTHM, +S1, +S2 - GI/Abdominal Exam GI & Abdominal Exam: Soft, Normal Bowel Sounds - Extremities Exam Additional comments: WOUND INF IMPROVING. - Neurological Exam Neurological Exam: Alert, Awake, CN II-XII Intact, Normal Gait, Oriented x3 Assessment and Plan - Assessment and Plan (Free Text) Assessment: STABLE. Plan: DISCHARGE HOME.
[2016-12-19 13:27] VITALS: BP 118/63; PULSE 74; TEMP 97.5; O2SAT 97
--- NOTE | 2016-12-19 16:29 | PCM.HF ---
Heart Failure Core Measure - Heart Failure Ejection Fraction: 40 % or Greater (EF >70%) STEVEN Inhibitor Prescribed: No Contraindication/Reason for not providing: ESRD Angiotensin II Receptor Carmen Prescribed: Yes AnticoagulationTherapy for Atrial Fibrillation/Atrialflutter: No Contraindication/Reason for not providing: no afib Aldosterone Antagonist Prescribed: No Contraindication/Reason for not providing: RENAL DYSFUNCTION Hydralazine Nitrate Prescribed: Yes Implantable Cardioverter Defibrillator Therapy: No Contraindication/Reason for not providing: EF >40% Cardiac Resynchronization Therapy Prescribed: No Contraindication/Reason for not providing: not indicated - Follow up Will be discharged to: Home (home care/vns) Follow Up Date (must be within 7 days from discharge): 12/22/16 Follow Up Time: 09:00
--- NOTE | 2016-12-19 17:19 | CP.PCM.PN ---
Subjective - Date & Time of Evaluation Date of Evaluation: 12/19/16 Time of Evaluation: 11:00 - Subjective Subjective: Alert, awake, no acute distress. Objective - Vital Signs/Intake and Output Vital Signs (last 24 hours): Temp Pulse Resp BP Pulse Ox 97.5 F L 74 20 118/63 97 12/19/16 10:00 12/19/16 10:00 12/19/16 10:00 12/19/16 10:00 12/19/16 10:00 Intake and Output: 12/19/16 12/19/16 06:59 18:59 Intake Total 700 Balance 700 - Labs Labs: 12/18/16 09:30 12/18/16 09:30 Assessment and Plan - Assessment and Plan (Free Text) Assessment: Patient is seen and examined. Alert, awake, no distress. wound care taught to the . Discharged home with home care, visiting nurse services x times a week. To receive vancomycin IV after each dialysis for [address] Wellington.D/W DR Dutch Cabrera, advised to follow up with PMD in 1 week. verbalized understanding. PICC line discontinued, no bleeding noted.
--- NOTE | 2017-01-15 04:05 | DS ---
HISTORY OF PRESENT ILLNESS: This is a 71-year-old white female who admitted from emergency room. The patient has a history of chronic renal failure and has AV shunt done. AV shunt was infected and there was foul smell, so she was admitted to the hospital. PAST HISTORY: Chronic renal failure, hypertension, and atherosclerotic heart disease. PHYSICAL EXAMINATION: GENERAL: On admission, the patient was awake, comfortable, afebrile. VITAL SIGNS: Normal. LUNGS: Clear. HEART: Within normal limit. ABDOMEN: Soft and nontender. Left arm has wound infection. CENTRAL NERVOUS SYSTEM: Normal. LABORATORY DATA: Lab work was within normal limits. During the hospital course, surgical consult was obtained by Dr. Melendez. ID consult was also done by Dr. Wellington. The patient has chronic wound infection, so upon stabilization, she was discharged home. The patient was advised to continue antibiotics. Follow up with Dr. Melendez. FINAL DIAGNOSES: Left arm cellulitis. Infected AV shunt. Fluctuating blood sugar. Chuy Cabrera MD
== END 2016-12-19 12:47 | disposition home or self-care (01) | DRG 314 ==
LOC: C.ER 21:35 → C.3T 12-16 00:56
PROVIDERS: ADMIT Internal Medicine; ATTEND Internal Medicine
PROC: 5A1D60Z (ICD-10-PCS; principal; 2016-12-16)
DX: T82.7XXA Infection and inflammatory reaction due to other cardiac and vascular devices, implants and grafts, initial encounter (principal); N18.6 End stage renal disease; I13.2 Hypertensive heart and chronic kidney disease with heart failure and with stage 5 chronic kidney disease, or end stage renal disease; E11.22 Type 2 diabetes mellitus with diabetic chronic kidney disease; L03.114 Cellulitis of left upper limb; L97.429 Non-pressure chronic ulcer of left heel and midfoot with unspecified severity; E11.621 Type 2 diabetes mellitus with foot ulcer; D63.1 Anemia in chronic kidney disease; Z79.4 Long term (current) use of insulin; E87.5 Hyperkalemia; I50.9 Heart failure, unspecified; Z99.2 Dependence on renal dialysis

== ENCOUNTER 2016-12-20 14:17 | Inpatient (IN) | payer MEDICARE ==
[2016-12-20 14:35] VITALS: BMI 26.4
--- NOTE | 2016-12-20 14:58 | C.PDOC ---
History Of Present Illness 71 year old female presents to the emergency department with complaints of vomiting since yesterday. Patient notes a history of diabetes, HTN, and is end stage renal dialysis. Her last dialysis was and had a scheduled dialysis for today but did not go because she came to the emergency department instead. Patient denies fever, diarrhea, or other complaints at this time. Time Seen by Provider: 12/20/16 14:36 Chief Complaint (Nursing): Abdominal Pain History Per: Patient History/Exam Limitations: no limitations Onset/Duration Of Symptoms: Hrs Current Symptoms Are (Timing): Still Present Radiation Of Pain To:: None Associated Symptoms: Vomiting. denies: Fever, Chills, Diarrhea Recent travel outside of the [place]: No Additional History Per: Prior Records Abnormal Vaginal Bleeding: No Past Medical History Reviewed: Historical Data, Nursing Documentation, Vital Signs Vital Signs: Last Vital Signs Temp 98.7 F 12/20/16 17:54 Pulse 84 12/20/16 17:54 Resp 20 12/20/16 17:54 BP 165/61 H 12/20/16 17:54 Pulse Ox 100 12/20/16 18:11 - Medical History PMH: Anemia, Anxiety, CHF, Depression (BROTHER LAST YEAR), Diabetes, HTN, Hypercholesterolemia, End Stage Renal Disease, Chronic Kidney Disease Surgical History: Appendectomy, Endoscopy (OCTOBER 2013) - [facility] Procedures ANESTH INJECT-SPIN CANAL (01/08/15) ANGIOPLASTY OF OTHER NON-CORONARY VESSEL(S) (03/01/14) ATHERECTOMY OF OTHER NON-CORONARY VESSEL(S) (03/01/14) BYPASS L BASILIC VEIN TO UP VEIN W SYNTH SUB, OPEN (10/21/16) DILATION OF LEFT POPLITEAL ARTERY, PERCUTANEOUS APPROACH (10/21/16) DRAINAGE OF LEFT LOWER ARM SKIN, EXTERNAL APPROACH (11/28/16) DRAINAGE OF LEFT PLEURAL CAVITY, PERCUTANEOUS APPROACH (10/10/15) EXCISION OF LEFT LOWER ARM SKIN, EXTERNAL APPROACH (11/28/16) EXERCISE TREATMENT OF MUSCULOSK WHOLE USING ASSIST EQUIPMENT (10/17/15) GAIT TRAINING/AMBULAT TREATMENT USING ASSIST EQUIPMENT (10/17/15) HOME MANAGEMENT TREATMENT USING ASSIST EQUIPMENT (10/17/15) IMMOBILIZ/WOUND ATTN NEC (06/24/13) INJECT STEROID (01/08/15) INJECT/INFUSE NEC (01/08/14) INSEJ OF DRUG-ELUTING STENT(S) OF OTH PERIPHERAL VESSEL(S) (03/01/14) INSERT INFUSION DEV IN R INT JUGULAR VEIN, PERC (10/21/16) INSERTION OF INFUSION DEV INTO SUP VENA CAVA, PERC APPROACH (11/28/16) INSERTION OF TWO VASCULAR STENTS (03/01/14) INTRODUCE OF OTH ANTI-INFECT INTO PERIPH VEIN, PERC APPROACH (10/17/15) PERFORMANCE OF URINARY FILTRATION, MULTIPLE (11/28/16) PROCEDURE ON SINGLE VESSEL (03/01/14) SPINAL CANAL INJECT NEC (01/08/15) TRANSFUSE NONAUT RED BLOOD CELLS IN PERIPH VEIN, PERC (11/28/16) VACCINATION NEC (11/29/14) Family History: States: Unknown Family Hx - Social History Hx Alcohol Use: No Hx Substance Use: No - Immunization History Hx Tetanus Toxoid Vaccination: No Hx Influenza Vaccination: No Hx Pneumococcal Vaccination: No Review Of Systems Constitutional: Negative for: Fever, Chills Cardiovascular: Negative for: Chest Pain Respiratory: Negative for: Shortness of Breath Gastrointestinal: Positive for: Vomiting. Negative for: Abdominal Pain, Diarrhea Neurological: Positive for: Weakness Physical Exam - Physical Exam Appears: Toxic, In Acute Distress Skin: Warm, Dry, Other (erythema left upper arm S/P fistula) Head: Atraumatic Eye(s): bilateral: Normal Inspection, PERRL, EOMI Oral Mucosa: Dry Neck: Supple Chest: Other (Dialysis catheter present in right anterior chest ) Cardiovascular: Rhythm Regular Respiratory: Normal Breath Sounds, No Rhonchi, No Wheezing Gastrointestinal/Abdominal: Soft, No Tenderness, No Distention, No Guarding, No Rebound Extremity: Normal ROM, No Tenderness, Other (Erythema surrounding open area with drainage in the left upper arm. Cellulitis of the left foot. ) Neurological/Psych: Oriented x3, Normal Speech, Normal Cognition, Normal Cranial Nerves, Normal Motor, Normal Sensation ED Course And Treatment - Laboratory Results Result Diagrams: 12/20/16 16:03 12/20/16 16:03 Lab Interpretation: Abnormal ECG: Interpreted By Me ECG Rhythm: Sinus Rhythm, L BBB, Nonspecific Changes Rate From EC O2 Sat by Pulse Oximetry: 100 (room air ) Pulse Ox Interpretation: Normal - Radiology CXR: Interpreted by Me CXR Interpretation: Yes: No Acute Disease Progress Note: EKG, CXR,and blood work were ordered. Patient was given Zofran. Treated with Insulin 8 Units IV Reassessment Condition: Improved - Physician Consult Information Physician Contacted: Gian Cabrera Outcome Of Conversation: admit Critical Care Time - Critical Care Note Total Time (in mins): 40 Documented critical care: time excludes all time spent performing seperately billable procedures. Medical Decision Making Medical Decision Making: Case discused with Dr Joann Cabrera who is covering for Dr Myrick and request admission to Hospitalist Case discussed with Dr Chapincito Cabrera and agrees to admit Case discussed with Dr Orellana who request ICU ICU consult Disposition Discussed With Dr.: Aida Orellana Doctor Will See Patient In The: Hospital - Disposition Disposition: HOSPITALIZED Disposition Time: 18:00 Condition: GUARDED - POA Present On Arrival: None - Clinical Impression Clinical Impression: Vomiting, Cellulitis of foot, Nausea & vomiting, Uncontrolled type 2 diabetes mellitus with hyperglycemia - Scribe Statement The provider has reviewed the documentation as recorded by the Scribe Kim Walden All medical record entries made by the Scribe were at my direction and personally dictated by me. I have reviewed the chart and agree that the record accurately reflects my personal performance of the history, physical exam, medical decision making, and the department course for this patient. I have also personally directed, reviewed, and agree with the discharge instructions and disposition. Decision To Admit - Pt Status Changed To: Hospital Disposition Of: Inpatient - Admit Certification Admit to Inpatient:: After my assessment, the patient will require hospitalization for at least two midnights. This is because of the severity of symptoms shown, intensity of services needed, and/or the medical risk in this patient being treated as an outpatient. - InPatient: Physician Admission Certification:: Cellulitis. DM. Vomiting. ESRD on HD - . Bed Request Type: Regular Admitting Physician: Aida Orellana Patient Diagnosis: Vomiting, Cellulitis of foot, Nausea & vomiting, Uncontrolled type 2 diabetes mellitus with hyperglycemia
--- NOTE | 2016-12-20 15:42 | RAD ---
PROCEDURE: CHEST RADIOGRAPH, 1 VIEW HISTORY: SOB COMPARISON: 12/15/2016. FINDINGS: The right dialysis catheter terminates at the cavoatrial junction. LUNGS: There is worsening pulmonary venous congestion and interstitial edema. PLEURA: There is worsening left pleural effusion. No significant right pleural effusion. CARDIOVASCULAR: There is persistent moderate cardiomegaly. OSSEOUS STRUCTURES: No significant abnormalities. VISUALIZED UPPER ABDOMEN: Normal. OTHER FINDINGS: There are surgical clips in the left axilla. IMPRESSION: Persistent moderate cardiomegaly, worsening pulmonary venous congestion and left pleural effusion.
[2016-12-20 16:18] LABS: BASO # 0.1 K/uL (0.0-0.2); EOS # 0.1 K/uL (0.0-0.7); HEMOGLOBIN 11.3 g/dL (11.0-16.0); LYMPH % 7.7 % (20.0-40.0); MEAN CELL VOLUME 94.2 fL (81.0-99.0); MEAN CORPUSCULAR HEMOGLOBIN 30.7 pg (27.0-31.0); MEAN CORPUSCULAR HGB CONC 32.6 g/dL (33.0-37.0); MEAN PLATELET VOLUME 9.9 fL (7.2-11.7); MONO # 1.3 K/uL (0.0-0.8); MONO % 10.8 % (0.0-10.0); NEUT # 9.9 K/uL (1.8-7.0); NEUT % 79.5 % (50.0-75.0); PLATELET COUNT 196 K/uL (130-400); RBC 3.69 Mil/uL (3.80-5.20); RED CELL DISTRIBUTION WIDTH 16.5 % (11.5-14.5); WHITE BLOOD COUNT 12.4 K/uL (4.8-10.8)
[2016-12-20 16:21] LABS: ABG ALLEN TEST PO; ARTERIAL BLOOD GAS HCO3 22.7 mmol/L (21-28); ARTERIAL BLOOD GAS O2 SAT 98.2 % (95-98); ARTERIAL BLOOD GAS PCO2 37 mm/Hg (35-45); ARTERIAL BLOOD GAS PH 7.38 (7.35-7.45); ARTERIAL BLOOD GAS PO2 93 mm/Hg (80-100)
[2016-12-20 16:25] LABS: PROTHROMBIN TIME 10.9 SECONDS (9.7-12.2)
[2016-12-20 16:26] LABS: ALBUMIN 3.7 g/dL (3.5-5.0)
[2016-12-20 16:29] LABS: ALB/GLOB RATIO 1.3 (1.0-2.1); CALCIUM 8.8 mg/dl (8.6-10.4)
[2016-12-20 16:37] LABS: CK-MB 10.6 ng/mL (0.0-3.38)
[2016-12-20 16:49] LABS: TROPONIN I 9.78 ng/mL (0.00-0.120)
--- NOTE | 2016-12-20 16:50 | RAD ---
PROCEDURE: Left Foot Radiographs. HISTORY: infection COMPARISON: None. FINDINGS: BONES: There is diffuse bone demineralization. There is no acute fracture or bone destruction. JOINTS: Normal. SOFT TISSUES: There is moderate dorsal soft tissue swelling. OTHER FINDINGS: Atherosclerotic vascular calcifications are present in the toes. IMPRESSION: No acute fracture or bone destruction. Moderate dorsal soft tissue swelling may represent cellulitis in the appropriate clinical setting.
[2016-12-20] MEDS ORDERED: (Novolin R) Insulin Human Regular 100 units/ml vial IV ONE (16:55)
[2016-12-20 17:09] LABS: ANISOCYTOSIS SLIGHT; EOSINOPHIL 1 % (0-4); LYMPHOCYTE 9 % (20-40); MONOCYTE 4 % (0-10); NEUTROPHIL 86 % (50-75); PLATELET ESTIMATE NORMAL (NORMAL); TOTAL CELLS COUNTED 100
[2016-12-20] MEDS ORDERED: (Novolin R) Insulin Human Regular 100 units/ml vial ONE (17:14)
--- NOTE | 2016-12-20 17:38 | CP.PCM.CON ---
History of Present Illness - History of Present Illness History of Present Illness: ICU evaluation for elevated troponin 71 yo F WITH HISTORY OF CKD on hemodialysis, CHF, HTN, CAD, DM2, anxiety, anemia of chronic disease, chronic low back pain who presented to the ED complaining of vomiting since yesterday. Denies chest pain, denies fevers chills , denies shortness of breath, denies dizziness. Also denies abdominal pain but c /o of diarrhea. Patient found to have elevated troponin in the emergency room. Patient missed her dialysis today because of vomiting. Patient was admitted to [facility] in September/October with elevated blood pressure and found to have elevated troponins. Patient was seen by cardiology and impression was demand ischemia. Echocardiogram during that admission showed normal ejection fraction with pulmonary hypertension. PMHx: CKD stage III, CHF, HTN, CAD, DM2, anxiety, anemia of chronic disease, left foot ulcer PSHx: Appendectomy, status post debridement and drainage of abscess left arm by vascular surgeon Dr. Melendez Medications: Hydralazine 50mg, Losartan potassium 100mg, Allopurinol 100mg, Atorvastatin 20mg, Lantus,LASIX, Allergies: NKDA Family history: not contributory Social History: Lives with in [place], denies any smoking, denies ETOH or drug abuse Review of Systems - Review of Systems All systems: reviewed and no additional remarkable complaints except (Vomiting and slight abdominal discomfort) Past Patient History - Infectious Disease Hx of Infectious Diseases: None - Tetanus Immunizations Tetanus Immunization: Unknown - Past Medical History & Family History Past Medical History?: Yes - Past Social History Smoking Status: Unknown If Ever Smoked - CARDIAC Hx Congestive Heart Failure: Yes Hx Hypercholesterolemia: Yes Hx Hypertension: Yes - PULMONARY Hx Respiratory Disorders: No - NEUROLOGICAL Hx Neurological Disorder: No - HEENT Hx HEENT Problems: Yes Hx Cataracts: Yes - RENAL Hx Chronic Kidney Disease: Yes - ENDOCRINE/METABOLIC Hx Endocrine Disorders: Yes Hx Diabetes Mellitus Type 2: Yes - HEMATOLOGICAL/ONCOLOGICAL Hx Anemia: Yes - INTEGUMENTARY Hx Dermatological Problems: No (VERY PALE) - MUSCULOSKELETAL/RHEUMATOLOGICAL Hx Musculoskeletal Disorders: Yes Hx Degenerative Joint Disease: Yes - GENITOURINARY/GYNECOLOGICAL Hx Genitourinary Disorders: Yes Hx Urinary Tract Infection: Yes - PSYCHIATRIC Hx Anxiety: Yes Hx Depression: Yes (BROTHER LAST YEAR) Hx Substance Use: No - SURGICAL HISTORY Hx Appendectomy: Yes - ANESTHESIA Hx Anesthesia: Yes Hx Anesthesia Reactions: No Hx Malignant Hyperthermia: No Meds Allergies/Adverse Reactions: Allergies Allergy/AdvReac Type Severity Reaction Status Date / Time No Known Allergies Allergy Verified 12/20/16 14:34 Physical Exam - Head Exam Head Exam: ATRAUMATIC, NORMOCEPHALIC - ENT Exam ENT Exam: Mucous Membranes Dry - Neck Exam Neck exam: Positive for: Normal Inspection - Respiratory Exam Respiratory Exam: Clear to Auscultation Bilateral - Cardiovascular Exam Cardiovascular Exam: REGULAR RHYTHM - GI/Abdominal Exam GI & Abdominal Exam: Normal Bowel Sounds, Soft Results - Vital Signs Recent Vital Signs: Last Vital Signs Temp 97.7 F 12/20/16 14:38 Pulse 78 12/20/16 14:38 Resp 20 12/20/16 14:38 BP 205/70 H 12/20/16 14:38 Pulse Ox 100 12/20/16 16:13 - Labs Result Diagrams: 12/20/16 16:03 12/20/16 16:03 Assessment & Plan (1) Elevated troponin Status: Acute Comment: Rule out non-ST elevation [place]. ICU monitoring. Antihypertensive. Anticoagulation, patient started on IV heparin, because of vomiting could not TAKE Plavix, aspirin by rectum given. Cardiology evaluation. Echocardiogram and JUAN A (2) Vomiting Status: Acute (3) End stage renal disease on dialysis Status: Acute
[2016-12-20] MEDS ORDERED: Heparin25000 units/250ml 1/2NS 25,000 UNITS/250 ML BAG IV PRN (17:40)
--- NOTE | 2016-12-20 18:14 | CP.PCM.HP ---
Addendum entered and electronically signed by Poonam Rosenbaum DO 12/20/16 18: 59: PMD is Dr. Myrick/Carlos For B/L Cellulitis: Wound care referral Reviewed prior records - Left foot MRI in October shows no evidence of osteomyelitis Original Note: <RobiPoonam Jack - Last Filed: 12/20/16 18:23> History of Present Illness - History of Present Illness History of Present Illness: CC: "vomiting all night" HPI: Patient is a 71 year old female with PMHx of ESRD, diastolic CHF, HTN, type 2 DM, anxiety, anemia and low back pain presenting to the ER today with her at bedside for intractable vomiting that started at 2am. Patient says she was continually vomiting throughout the night and cannot quantify how many times she vomited. She says the vomit was her food at first and then became whitish phlegm. Patient denies and green or yellow coloration to the vomit. Patient denies any blood in the vomit. Patient says she began experiencing thoracic back pain while vomiting this morning. Patient also reports watery, yellow diarrhea that started yesterday morning. Patient denies blood in the diarrhea. Patient reports associated diffuse, uper abdominal pain. Patient reports eating spaghetti with tomato sauce and fresh fish yesterday. Patient denies fever, chills, chest pain,SOB, constipation, dysuria, sick contacts, weight change. Patient was just discharged 12/19/16 for this Patient was supposed to receive vancomycin IC after each dialysis for [address] Amish Kincaid PICK UP DRIVER note PMD: Dr Myrick PMHx: CKD stage III, CHF, HTN, CAD? (in prior records), DM2, anxiety, anemia of chronic disease, chronic low back pain PSHx: Appendectomy, AV fistula, lower extremity artherectomy Allergies: NKDA Family history: not contributory Social History: Lives with in [place], denies any smoking, denies ETOH or drug abuse Present on Admission - Present on Admission Any Indicators Present on Admission: Yes History of Uncontrolled Diabetes: Yes Review of Systems - Constitutional Constitutional: Weakness. absent: Chills, Fever, Weight Loss - EENT Eyes: absent: Change in Vision Ears: absent: Dizziness Nose/Mouth/Throat: absent: Sore Throat - Cardiovascular Cardiovascular: Diaphoresis, Leg Edema, Leg Ulcers. absent: Chest Pain, Edema, Lightheadedness, Palpitations - Respiratory Respiratory: absent: Cough, Dyspnea - Gastrointestinal Gastrointestinal: Abdominal Pain, Diarrhea, Nausea, Vomiting. absent: Constipation, Heartburn, Hematemesis, Hematochezia - Genitourinary Genitourinary: absent: Dysuria - Reproductive: Female Reproductive:Female: Post Menopausal - Musculoskeletal Musculoskeletal: Back Pain. absent: Numbness, Tingling - Integumentary Integumentary: Lesions (erythema and chronic venous stasis changes of b/l lower legs anteriorly), Skin Ulcer (left foot) - Neurological Neurological: absent: Dizziness, Headaches - Endocrine Endocrine: Fatigue. absent: Palpitations - Hematologic/Lymphatic Hematologic: absent: Easy Bleeding, Easy Bruising Past Patient History - Infectious Disease Hx of Infectious Diseases: None - Tetanus Immunizations Tetanus Immunization: Unknown - Past Medical History & Family History Past Medical History?: Yes Past Family History: Reviewed and not pertinent - Past Social History Smoking Status: Never Smoked Alcohol: None Drugs: Denies Home Situation {Lives}: With Family - CARDIAC Hx Congestive Heart Failure: Yes Hx Hypercholesterolemia: Yes Hx Hypertension: Yes - PULMONARY Hx Respiratory Disorders: No - NEUROLOGICAL Hx Neurological Disorder: No - HEENT Hx HEENT Problems: Yes Hx Cataracts: Yes - RENAL Hx Chronic Kidney Disease: Yes - ENDOCRINE/METABOLIC Hx Endocrine Disorders: Yes Hx Diabetes Mellitus Type 2: Yes - HEMATOLOGICAL/ONCOLOGICAL Hx Anemia: Yes - INTEGUMENTARY Hx Dermatological Problems: No (VERY PALE) - MUSCULOSKELETAL/RHEUMATOLOGICAL Hx Musculoskeletal Disorders: Yes Hx Degenerative Joint Disease: Yes - GENITOURINARY/GYNECOLOGICAL Hx Genitourinary Disorders: Yes Hx Urinary Tract Infection: Yes - PSYCHIATRIC Hx Anxiety: Yes Hx Depression: Yes (BROTHER LAST YEAR) Hx Substance Use: No - SURGICAL HISTORY Hx Appendectomy: Yes - ANESTHESIA Hx Anesthesia: Yes Hx Anesthesia Reactions: No Hx Malignant Hyperthermia: No Meds Allergies/Adverse Reactions: Allergies Allergy/AdvReac Type Severity Reaction Status Date / Time No Known Allergies Allergy Verified 12/20/16 14:34 Physical Exam - Constitutional Appears: Non-toxic - Head Exam Head Exam: NORMAL INSPECTION - Eye Exam Eye Exam: EOMI - ENT Exam ENT Exam: Mucous Membranes Moist - Respiratory Exam Respiratory Exam: Clear to Auscultation Bilateral, NORMAL BREATHING PATTERN. absent: Rales, Rhonchi, Wheezes - Cardiovascular Exam Cardiovascular Exam: REGULAR RHYTHM, +S1, +S2, Systolic Murmur. absent: Gallop , Rubs - GI/Abdominal Exam GI & Abdominal Exam: Hyperactive Bowel Sounds, Soft, Tenderness (RUQ, LUQ, epigastric, negative Blancas's sign). absent: Distended - Extremities Exam Extremities exam: Positive for: pedal edema, tenderness Additional comments: chronic venous stasis changes on anterior LE skin, left foot heel ulcer wrapped in clean, dry dressing - Neurological Exam Neurological exam: Alert, Oriented x3 - Psychiatric Exam Psychiatric exam: Normal Affect, Normal Mood - Skin Skin Exam: Normal Color, Warm Results - Vital Signs Recent Vital Signs: Last Vital Signs Temp 98.7 F 12/20/16 17:54 Pulse 84 12/20/16 17:54 Resp 20 12/20/16 17:54 BP 165/61 H 12/20/16 17:54 Pulse Ox 100 12/20/16 18:09 - Labs Result Diagrams: 12/20/16 16:03 12/20/16 16:03 Assessment & Plan - Assessment and Plan (Free Text) Assessment: NSTEMI Troponin of 9.78, CK-MB 10.6 EKG - NSR @ 78, left atrial enlargement and nonspecific ST and T wave abnormalities (please see full reporT) Unchanged from prior EKG Risk factors: CAD, PVD, DM, HTN, Age, female RICARDO score: 3 points --> 13% risk at 14 days of: all-cause mortality, new or recurrent [place], or severe recurrent ischemia requiring urgent revascularization Admission to ICU Cardiology Consult - Dr. Law - help appreciated F/U ROMIs at 22:30 and 4:30 with EKGs F/U ECHO F/U HgbA1C, TSH, Lipid panel Heparin bolus and drip at 12mg/kg/hr Plavix 75mg PO daily ASA 300mg IA daily Crestor 10mg PO HS Hypertensive Emergency Patient did not take PO meds this AM secondary to vomiting Missed dialysis secondary to vomiting ESRD TThSat Hydralazine 10mg IVP stat Continue home meds: Cozaar 100mg PO daily Hydralazine 25mg PO BID Metolazone 5mg PO daily Lasix 40mg PO daily Nephro consult - Dr. Ambrose - help appreciated Leukocytosis WBC 12.4 with left shift Patient does not meet SIRS criteria LA 1.9 CXR 12/20/18 - persistent moderate cardiomegaly, worsening pulmonary venous congestion and left pleural effusion (please see full reporT) F/U blood cultures x2, UA, urine culture, stool culture, urinalysis, procalcitonin Flagyl 500mg IVPB Q8H started 12/20/16 F/U Abd/Pelvic CT with PO contrast ID consult - Dr. Wellington - f/u recs Vomiting See above plan for leukocytosis Zofran 4mg IVPB Q6H PRN N/V No Reglan for now as this can increase gut motility Clear liquid diet Uncontrolled Diabetes Glucose 460 on arrival F/U HgbA1C Accuchecks Q6H Diabetic clear liquid diet Novolog insulin sliding scale Lantus 36u SC QHS ESRD Dialysis TThSat Nephro consult - Dr. Ambrose - help appreciated B/L Cellulitis 12/20/16 foot X ray - no acute fracture or bone destruction. Moderate dorsal soft tissue swelling may represent cellulitis in the appropriate clinical setting (please see full report) Patient was just discharged 12/19/16 for this Patient was supposed to receive vancomycin IC after each dialysis for [address] Wellington per Fabi Kincaid PICK UP DRIVER note Holding vanco for now. F/U Dr. Wellington's recommendations History of CHF (questionable) ECHO 10/23/16 - there is a small to moderate circumferential pericardial effusion. No evidence of tamponade. The left ventricular systolic function is normal. Elevated left atrial pressure by Tissue Doppler. The right centricular systolic function is normal. There is a trace aortic regurgiation. Mild mitral regurgitation. There is mild to moderate tricuspid regurgiation. Mild pulmonary hypertension (please see full report) F/U repeat ECHO Cozaar 100mg PO daily Hydralazine 25mg PO BID Metolazone 5mg PO daily Lasix 40mg PO daily Cardio consult - Dr. Law - help appreciated Prophylaxis Plavix 75mg PO daily Heparin drip Pepcid 20mg IVP daily <Aida Orellana V - Last Filed: 12/21/16 00:08> Results - Vital Signs Recent Vital Signs: Last Vital Signs Temp 99.6 F 12/20/16 18:15 Pulse 79 12/20/16 20:45 Resp 20 12/20/16 20:45 BP 166/54 H 12/20/16 18:15 Pulse Ox 99 12/20/16 20:45 - Labs Result Diagrams: 12/20/16 16:03 12/20/16 16:03 Labs: Laboratory Results - last 24 hr 12/20/16 12/20/16 12/20/16 19:02 22:02 22:19 POC Glucose (mg/dL) 151 H 24 L* 313 H Attending/Attestation - Attestation I have personally seen and examined this patient.: Yes I have fully participated in the care of the patient.: Yes I have reviewed all pertinent clinical information: Yes Notes (Text): Patient seen, examined, and case discussed with day-time resident. Patient seen in [facility] [place] BED 2 in the Main Emergency Room on 12/20/16. * Discussed with PICK UP DRIVER, Linda, patient's troponin is 9. Patient has not had prior cardiac workup. Discussed with patient and at bedside, patient has not had a stress test, has not had a cardiac cath, and denies history of [place]. Patient came into the ED today because of nausea, vomitting and diarrhea which started early in the morning around 2am. Patient ate spaghetti and per appears she threw up her food contents, but denies hematemesis. He reports sugar was very high this morning and gave her Lantus 36 units but sugars did not improve. Patient recently discharged on 12/19/16 with discharge instructions to include IV vancomycin post dialysis for 3 weeks. Concern r/o C. dif given recent hospitalizations and IV abx use. * Cardiology (Dr. Law) consulted-->familiar with the patient's peripheral vascular disease; recommended for heparin drip. Patient ordered for stat Aspirin 325 and plavix; however given her nausea unable to tolerate PO and aspirin changed to rectal dosage. Patient had repeat EKG given troponin finding not ST elevation noted. JUAN A and EKGS ordered. Patient had echo completed on 10/23; small to medium pericardial effusion, no tamponade, EF intact. * Patient given her nausea and vomitting causing abdominal pain, and diarrhea unable to go to dialysis today and went to the ED instead. Resident discussed dialysis consent with the patient and awaiting dialysis orders from her dental laboratory manager, Dr. Ambrose. Patient only took insulin today prior to hospitalization today. * Discussed with ICU, nonstemi further monitoring in the ICU. Patient has cardiac risk factors: DM, HTN, PVD, questionable hx of CHF. * Patient's SBP: 205 in the ED, given dose of Hydralazine 10mg IV X1, and will need dialysis to remove access fluid. Patient by time she came to ICU SBP: 160s. * Ordered for CT abdomen/pelvis PO contrast; unable to tolerate PO contrast given vomitting; shows bibasilar pleural effusions and possible infiltrate. * Patient's has leukocytosis-->prior hx of infected AV graft (left upper extremity) and left foot ulcer, and prior MSSA bacteremia per review of EMR. Lactic acid: 2.0, Ordered for blood, urine, and stool cultures and infectious disease consulted. prior picc blood cultures from last admission shows no growth * Patient's home anti-hypertensive medications started for tomorrow given that she needs dialysis today * Discussed case with ICU accepted patient, cardiology and nephrology contacted by the resident, and will follow-up with ID. * Discussed admitting orders with day-time resident. Assessment/Plan 1) NSTEMI Troponin of 9.78, CK-MB 10.6 EKG - NSR @ 78, left atrial enlargement and nonspecific ST and T wave abnormalities (please see full reporT) Unchanged from prior EKG Risk factors: CAD, PVD, DM, HTN, Age, female RICARDO score: 3 points --> 13% risk at 14 days of: all-cause mortality, new or recurrent [place], or severe recurrent ischemia requiring urgent revascularization Admission to ICU Cardiology Consult - Dr. Law - help appreciated F/U ROMIs at 22:30 and 4:30 with EKGs F/U ECHO F/U HgbA1C, TSH, Lipid panel Heparin bolus and drip at 12mg/kg/hr Plavix 75mg PO daily-->not able to tolerate due to nausea ASA 300mg IA daily Crestor 10mg PO HS 2) Hypertensive Emergency/ Fluid Overload Patient did not take PO meds this AM secondary to vomiting Missed dialysis secondary to vomiting and likely fluid overloaded ESRD TThSat Hydralazine 10mg IVP stat Continue home meds: Cozaar 100mg PO daily Hydralazine 25mg PO BID Metolazone 5mg PO daily Lasix 40mg PO daily Nephro consult - Dr. Ambrose - help appreciated 3) Leukocytosis WBC 12.4 with left shift Patient does not meet SIRS criteria/code sepsis LA 1.9 CXR 12/20/18 - persistent moderate cardiomegaly, worsening pulmonary venous congestion and left pleural effusion (please see full reporT) F/U blood cultures x2, UA, urine culture, stool culture, urinalysis, procalcitonin Flagyl 500mg IVPB Q8H started 12/20/16 F/U Abd/Pelvic CT with PO contrast ID consult - Dr. Wellington - f/u recs Note prior hx/infected of left AV shunt 4) Vomiting See above plan for leukocytosis Zofran 4mg IVPB Q6H PRN N/V No Reglan for now as this can increase gut motility Clear liquid diet 5) Uncontrolled Diabetes Glucose 460 on arrival F/U HgbA1C, Lipid panel in AM Accuchecks Q6H Diabetic clear liquid diet Novolog insulin sliding scale Lantus 36u SC QHS (note in EMR getting 55 however, given she is not eating given vomitting; and keep at low dose and titrate based insulin coverage. 6) ESRD Dialysis TThSat Nephro consult - Dr. Ambrose - help appreciated 7) B/L Cellulitis 12/20/16 foot X ray - no acute fracture or bone destruction. Moderate dorsal soft tissue swelling may represent cellulitis in the appropriate clinical setting (please see full report) Patient was just discharged 12/19/16 for this Patient was supposed to receive vancomycin IC after each dialysis for [address] Wellington per Fabi Kincaid PICK UP DRIVER note Holding vanco for now. F/U Dr. Wellington's recommendations 8) History of CHF (questionable) ECHO 10/23/16 - there is a small to moderate circumferential pericardial effusion. No evidence of tamponade. The left ventricular systolic function is normal. Elevated left atrial pressure by Tissue Doppler. The right centricular systolic function is normal. There is a trace aortic regurgiation. Mild mitral regurgitation. There is mild to moderate tricuspid regurgiation. Mild pulmonary hypertension (please see full report) F/U repeat ECHO Cozaar 100mg PO daily Hydralazine 25mg PO BID Metolazone 5mg PO daily Lasix 40mg PO daily Aspirin 300mg IA Plavix 75mg PO daily-->not tolerated secondary to vomitting Cardio consult - Dr. Law - help appreciated 9) Prophylaxis Plavix 75mg PO daily Heparin drip Pepcid 20mg IVP daily Patient at this time is a full code. Discussed with patient's , they have never had a code status talk; advised to think about given she has been in and out of hospital to follow-up the labs
[2016-12-20] MEDS: metroNIDAZOLE IV 500 mg/100 ml 250 MG in Premixed IV 1 EA IVPB SCH (18:47)
[2016-12-20] MEDS: (Novolog) Insulin Aspart, Recombinant 100 u/ml 10 ml vial SC SCH (19:43)
[2016-12-20] MEDS ORDERED: (Lantus) Insulin Glargine, Recombinant SC SCH ×2 (22:00)
[2016-12-20] MEDS ORDERED: Iodixanol 320 MG/ML 100 ML BOTTLE IV ONE (22:05)
[2016-12-20] MEDS ORDERED: Dextrose 50% SYRINGE Inj (50 ml) ONE (22:07)
[2016-12-20] MEDS ORDERED: Vancomycin 1 GM 1 GM/250 ML BAG IVPB STA (23:15)
--- NOTE | 2016-12-20 23:18 | CP.PCM.CON ---
History of Present Illness - History of Present Illness History of Present Illness: REASONS FOR CONSULT : ESRD ON HD T T S ANEMIA OF CKD RENAL METABOLIC BONE DISEAS PT WAS DRIVEN BY HER TO THE HD CENTER .. PT WAS OUT SIDE THE HD CENTER AND SHE WAS C/O ABDO PAIN AND SHE REFUSED TO GO IN .. THE HD -RN CALLED ME .. AND THE PT INSISTED ON GOING TO THE HOSPITAL .. AMBULANCE WAS CALLED AND PT WAS BROUGHT TO .. PT WAS RECENTLY D/C FROM 71 yo F WITH HISTORY OF CKD on hemodialysis, CHF, HTN, CAD, DM2, anxiety, anemia of chronic disease, chronic low back pain who presented to the ED complaining of vomiting since yesterday. Denies chest pain, denies fevers chills , denies shortness of breath, denies dizziness. Also denies abdominal pain but c /o of diarrhea. Patient found to have elevated troponin in the emergency room. Patient missed her dialysis today because of vomiting. Patient was admitted to [facility] in September/October with elevated blood pressure and found to have elevated troponins. Patient was seen by cardiology and impression was demand ischemia. Echocardiogram during that admission showed normal ejection fraction with pulmonary hypertension. PMHx: CKD stage III, CHF, HTN, CAD, DM2, anxiety, anemia of chronic disease, left foot ulcer PSHx: Appendectomy, status post debridement and drainage of abscess left arm by vascular surgeon Dr. Melendez Medications: Hydralazine 50mg, Losartan potassium 100mg, Allopurinol 100mg, Atorvastatin 20mg, Lantus,LASIX, Allergies: NKDA Family history: not contributory Social History: Lives with in [place], denies any smoking, denies ETOH or drug abuse Past Patient History - Infectious Disease Hx of Infectious Diseases: None - Tetanus Immunizations Tetanus Immunization: Unknown - Past Medical History & Family History Past Medical History?: Yes - Past Social History Smoking Status: Never Smoked - CARDIAC Hx Congestive Heart Failure: Yes Hx Hypercholesterolemia: Yes Hx Hypertension: Yes - PULMONARY Hx Respiratory Disorders: No - NEUROLOGICAL Hx Neurological Disorder: No - HEENT Hx HEENT Problems: Yes Hx Cataracts: Yes - RENAL Date of Last Dialysis Treatment: 12/18/16 - ENDOCRINE/METABOLIC Hx Endocrine Disorders: Yes Hx Diabetes Mellitus Type 2: Yes - HEMATOLOGICAL/ONCOLOGICAL Hx Anemia: Yes - INTEGUMENTARY Hx Dermatological Problems: No (VERY PALE) - MUSCULOSKELETAL/RHEUMATOLOGICAL Hx Musculoskeletal Disorders: Yes Hx Degenerative Joint Disease: Yes Hx Falls: No - GASTROINTESTINAL Hx Gastrointestinal Disorders: No - GENITOURINARY/GYNECOLOGICAL Hx Genitourinary Disorders: Yes Hx Urinary Tract Infection: Yes - PSYCHIATRIC Hx Substance Use: No - SURGICAL HISTORY Hx Appendectomy: Yes - ANESTHESIA Hx Anesthesia: Yes Hx Anesthesia Reactions: No Hx Malignant Hyperthermia: No Meds Allergies/Adverse Reactions: Allergies Allergy/AdvReac Type Severity Reaction Status Date / Time No Known Allergies Allergy Verified 12/20/16 14:34 - Medications Medications: Current Medications Allopurinol (Zyloprim) 100 mg PO DAILY [facility] Aspirin (Aspirin Supp) 300 mg MS DAILY [facility] Last Admin: 12/20/16 18:48 Dose: 300 mg Calcium Acetate (Phoslo) 667 mg PO BIDCC [facility] Clopidogrel Bisulfate (Plavix) 75 mg PO DAILY [facility] Last Admin: 12/20/16 19:11 Dose: 75 mg Collagenase (Santyl) 0 gm TOP DAILY [facility] Escitalopram Oxalate (Lexapro) 10 mg PO DAILY [facility] Famotidine (Pepcid) 20 mg IVP DAILY [facility] Last Admin: 12/20/16 19:11 Dose: 20 mg Furosemide (Lasix) 40 mg PO DAILY [facility] Hydralazine HCl (Apresoline) 25 mg PO BID [facility] Last Admin: 12/20/16 19:02 Dose: Not Given Heparin Sodium/Sodium Chloride (Heparin 87068 Units/250ml 1/2 Normal Saline) 25 ,000 units in 250 mls @ 7.62 mls/hr IV .Q24H PRN; Protocol; 12 UNITS/KG/HR PRN Reason: PROTOCOL Last Admin: 12/20/16 18:46 Dose: 12 units/kg/hr, 7.62 mls/hr Metronidazole 250 mg/ (Miscellaneous) 50 mls @ 100 mls/hr IVPB Q8 [facility] Last Admin: 12/20/16 18:47 Dose: 100 mls/hr Insulin Aspart (Novolog) 0 unit SC Q6H ELINA PRN Reason: Protocol Last Admin: 12/20/16 19:43 Dose: 2 unit Insulin Glargine (Lantus) 36 unit SC HS [facility] Losartan Potassium (Cozaar) 100 mg PO DAILY [facility] Metolazone (Zaroxolyn) 5 mg PO DAILY [facility] Ondansetron HCl (Zofran Inj) 4 mg IVP Q6H PRN PRN Reason: Nausea/Vomiting Rosuvastatin Calcium (Crestor) 10 mg PO HS ELINA Vitamin B Complex/Vitamin C (Berocca) 1 tab PO DAILY ELINA Results - Vital Signs Recent Vital Signs: Last Vital Signs Temp 99.6 F 12/20/16 18:15 Pulse 79 12/20/16 20:45 Resp 20 12/20/16 20:45 BP 166/54 H 12/20/16 18:15 Pulse Ox 99 12/20/16 20:45 - Labs Result Diagrams: 12/20/16 16:03 12/20/16 16:03 Labs: Laboratory Results - last 24 hr 12/20/16 12/20/16 12/20/16 19:02 22:02 22:19 POC Glucose (mg/dL) 151 H 24 L* 313 H Assessment & Plan - Assessment and Plan (Free Text) Assessment: ESRD ON HD T T S .. MISSED HER HD SHE CAME TO ER ANEMIA OF CKD .. H/H STABLE ABDO PAIN .. NEEDS W/UP MULTIPLE CO MORBIDITIES P : PT ON HD NOW C/O CURRENT CARE C/O PRESENT MANAGEMENT - Date & Time Date: 12/20/16 Time: 18:00
--- NOTE | 2016-12-20 23:19 | CT ---
EXAM: CT Abdomen and Pelvis With Intravenous Contrast CLINICAL HISTORY: 71 years old, female; Pain and signs and symptoms; Vomiting; Other: Thoracic; Additional info: Thoracic back pain; Intractable vomiting TECHNIQUE: Axial computed tomography images of the abdomen and pelvis with intravenous contrast. This CT exam was performed using one or more of the following dose reduction techniques: automated exposure control, adjustment of the mA and/or kV according to patient size, and/or use of iterative reconstruction technique. Coronal and sagittal reformatted images were created and reviewed. CONTRAST: 100 mL of [id number] administered intravenously. COMPARISON: No relevant prior studies available. FINDINGS: Lower thorax: Bilateral pleural effusions (left greater than right) with left basilar consolidation. ABDOMEN: Liver: No acute findings. Gallbladder and bile ducts: The gallbladder is minimally distended, without calcified stones. No significant intra- or extrahepatic biliary ductal dilation. Pancreas: Enhances homogeneously. No ductal dilation. No discrete mass. Spleen: No acute findings. Adrenals: No acute findings. Kidneys and ureters: No acute findings. No hydronephrosis or renal calculi. No discrete solid mass. PELVIS: Bladder: No acute findings. Reproductive: No acute findings. Appendix: The fluid-filled appendix is of normal caliber (series 2, image 64; series 601, image 56). ABDOMEN and PELVIS: Stomach and bowel: No obstruction. No mucosal thickening. Peritoneum: No significant fluid collection. No free air. Lymph nodes: No pathologically enlarged lymph nodes. Vasculature: Calcified atherosclerotic disease. Bones: Degenerative disease is identified within the mid to lower thoracic spine (approximate level of T9/T10) with osteophyte formation, disc space narrowing and vacuum phenomenon. IMPRESSION: Bilateral pleural effusions, with left basilar consolidation. Degenerative disease within the thoracic spine.
[2016-12-20] MEDS ORDERED: Gentamicin 80 mg in 0.9% NS 80 MG/100 ML BAG IVPB ONE (23:23)
[2016-12-21 00:41] LABS: CK-MB 6.79 ng/mL (0.0-3.38)
[2016-12-21] MEDS: metroNIDAZOLE IV 500 mg/100 ml 250 MG in Premixed IV 1 EA IVPB SCH ×2 (02:30→07:28)
[2016-12-21] MEDS ORDERED: Dextrose 50% SYRINGE Inj (50 ml) IV STA ×2 (03:18→11:50)
[2016-12-21] MEDS ORDERED: Dextrose 50% SYRINGE Inj (50 ml) ONE (03:22)
[2016-12-21] MEDS: (Novolog) Insulin Aspart, Recombinant 100 u/ml 10 ml vial SC SCH ×4 (03:44→18:32)
[2016-12-21] MEDS ORDERED: HYDROmorphone 1 mg/ml ISec IVP PRN (08:04)
--- NOTE | 2016-12-21 08:54 | CP.PCM.PN ---
Subjective - Date & Time of Evaluation Date of Evaluation: 12/21/16 Time of Evaluation: 08:45 - Subjective Subjective: Medical Attending Note Follow-up: Nonstemi, Hypertensive emergency, ESRD on //Thu, Leukocytosis, Diarrhea, History of Diabetes, Prior hx of infected AV graft Patient seen and examined this morning. Patient is primary Macanese speaking. Assistance with translation provided by Ronald Conroy, [id number] in azeri. Patient reports she felt nauseous over night, took breakfast this morning but continues to feel nauseous. Patient reports the diarrhea has stopped last night. patient denies fever, denies chills, denies chest pain, denies palpitations, denies abdominal pain, denies diarrhea, but reports pain localized to the left heel. Patient explained that she is in the ICU because her heart enzyme was quite high and may signify some type of stress affecting the heart. patient affirms she has not seen a heart doctor and denies heart problems. Explained to the patient she has risk factors including diabetes, pvd, htn, and esrd which can affect the heart adversely. Objective - Vital Signs/Intake and Output Vital Signs (last 24 hours): Temp Pulse Resp BP Pulse Ox 98.8 F 92 H 11 L 119/45 L 95 12/21/16 00:45 12/21/16 07:00 12/21/16 07:00 12/21/16 06:34 12/21/16 07:00 Intake and Output: 12/21/16 12/21/16 06:59 18:59 Intake Total 533.4 55.7 Output Total 0 0 Balance 533.4 55.7 - Medications Medications: Current Medications Allopurinol (Zyloprim) 100 mg PO DAILY [facility] Aspirin (Aspirin Supp) 300 mg CA DAILY [facility] Last Admin: 12/20/16 18:48 Dose: 300 mg Calcium Acetate (Phoslo) 667 mg PO BIDCC [facility] Last Admin: 12/21/16 08:24 Dose: 667 mg Clopidogrel Bisulfate (Plavix) 75 mg PO DAILY [facility] Last Admin: 12/20/16 19:11 Dose: 75 mg Collagenase (Santyl) 0 gm TOP DAILY [facility] Escitalopram Oxalate (Lexapro) 10 mg PO DAILY [facility] Famotidine (Pepcid) 20 mg IVP DAILY [facility] Last Admin: 12/20/16 19:11 Dose: 20 mg Furosemide (Lasix) 40 mg PO DAILY [facility] Hydralazine HCl (Apresoline) 25 mg PO BID [facility] Last Admin: 12/20/16 19:02 Dose: Not Given Hydromorphone HCl (Dilaudid) 0.5 mg IVP Q6H PRN PRN Reason: Pain, severe (8-10) Last Admin: 12/21/16 08:19 Dose: 0.5 mg Heparin Sodium/Sodium Chloride (Heparin 82722 Units/250ml 1/2 Normal Saline) 25 ,000 units in 250 mls @ 7.62 mls/hr IV .Q24H PRN; Protocol; 12 UNITS/KG/HR PRN Reason: PROTOCOL Last Titration: 12/21/16 02:30 Dose: 9 units/kg/hr, 5.715 mls/hr Metronidazole 250 mg/ (Miscellaneous) 50 mls @ 100 mls/hr IVPB Q8 [facility] Last Admin: 12/21/16 07:28 Dose: 100 mls/hr Insulin Aspart (Novolog) 0 unit SC Q6H [facility] PRN Reason: Protocol Last Admin: 12/21/16 06:47 Dose: Not Given Insulin Glargine (Lantus) 36 unit SC HS [facility] Last Admin: 12/20/16 23:55 Dose: 36 units Losartan Potassium (Cozaar) 100 mg PO DAILY [facility] Metolazone (Zaroxolyn) 5 mg PO DAILY [facility] Ondansetron HCl (Zofran Inj) 4 mg IVP Q6H PRN PRN Reason: Nausea/Vomiting Rosuvastatin Calcium (Crestor) 10 mg PO [facility] Last Admin: 12/20/16 23:50 Dose: 10 mg Vitamin B Complex/Vitamin C (Berocca) 1 tab PO DAILY [facility] - Labs Labs: PT 10.9 SECONDS (9.7-12.2) 12/20/16 16:07 INR 1.0 12/20/16 16:07 APTT 182 SECONDS (21-34) H* D 12/20/16 23:55 - Constitutional Appears: Non-toxic, No Acute Distress - Head Exam Head Exam: NORMAL INSPECTION - Eye Exam Eye Exam: EOMI - ENT Exam ENT Exam: Mucous Membranes Moist - Respiratory Exam Respiratory Exam: Decreased Breath Sounds, Rales, NORMAL BREATHING PATTERN. absent: Respiratory Distress - Cardiovascular Exam Cardiovascular Exam: REGULAR RHYTHM, +S1, +S2. absent: JVD, Rubs - GI/Abdominal Exam GI & Abdominal Exam: Soft, Normal Bowel Sounds. absent: Distended, Firm, Guarding, Rigid, Tenderness, Rebound - Extremities Exam Extremities Exam: absent: Joint Swelling, Pedal Edema, Tenderness Additional comments: feet in prevalon boots dressing over left heel dressing over the left av graft (prior hx of infection) - Back Exam Back Exam: absent: CVA tenderness (L), CVA tenderness (R), rash noted - Neurological Exam Neurological Exam: Alert, Awake, Oriented x3 - Psychiatric Exam Psychiatric exam: Normal Affect, Normal Mood - Skin Skin Exam: Dry, Intact, Normal Color, Warm Assessment and Plan - Assessment and Plan (Free Text) Assessment: Assessment/Plan 1) NSTEMI Admission to ICU Cardiology Consult - Dr. Law - help appreciated ECHO 10/23/16 - there is a small to moderate circumferential pericardial effusion. No evidence of tamponade. The left ventricular systolic function is normal. Elevated left atrial pressure by Tissue Doppler. The right centricular systolic function is normal. There is a trace aortic regurgiation. Mild mitral regurgitation. There is mild to moderate tricuspid regurgiation. Mild pulmonary hypertension (please see full report) F/U ECHO F/U HgbA1C: pending, TSH: pending, Lipid panel: pending Patient is ESRD; prior troponin memo 06/2015 from demand ischemia Troponin: 9.7800-->9.0900 F/u Cardiology recs EKG - NSR @ 78, left atrial enlargement and nonspecific ST and T wave abnormalities (please see full reporT) Unchanged from prior EKG Risk factors: CAD, PVD, DM, HTN, Age, female RICARDO score: 3 points --> 13% risk at 14 days of: all-cause mortality, new or recurrent WI, or severe recurrent ischemia requiring urgent revascularization Patient is currently on heparin drip. Plavix 75mg PO daily ASA 300mg CA daily on admission-->switch to PO Crestor 10mg PO HS Probnp is elevated 2) Hypertensive Emergency Nephro consult - Dr. Ambrose - help appreciated Cardiology Consult - Dr. Law - help appreciated Blood pressure stabilized SBP: 90s s/p dialysis overnight Holding parameters for home medications: Cozaar 100mg PO daily Hydralazine 25mg PO BID Metolazone 5mg PO daily Lasix 40mg PO daily 3) Fluid Overload Patient reports nausea over night. Tolerated breakfast this morning but feels naueous Patient completed dialysis over night SBP: 90s at bedside Holding parameters for home medications: Cozaar 100mg PO daily Hydralazine 25mg PO BID Metolazone 5mg PO daily Lasix 40mg PO daily Nephro consult - Dr. Ambrose - help appreciated 4) Leukocytosis ID consult - Dr. Wellington - f/u recs Awaiting blood work results Lactic acid: 2.0 pending cultures-->F/U blood cultures x2, UA, urine culture, stool culture, urinalysis, procalcitonin CXR 12/20/18 - persistent moderate cardiomegaly, worsening pulmonary venous congestion and left pleural effusion (please see full reporT) Ct abdomen/pelvis (12/20/16): bilateral pleural effusions with basilar consolidation. Degenerative disease within the thoracic spine 12/20/16 foot X ray - no acute fracture or bone destruction. Moderate dorsal soft tissue swelling may represent cellulitis in the appropriate clinical setting (please see full report) Flagyl 500mg IVPB Q8H started 12/20/16 ID consult - Dr. Wellington - f/u recs Note prior hx/infected of left AV shunt 5) Vomiting Zofran 4mg IVPB Q6H PRN N/V Clear liquid diet 6) Uncontrolled Diabetes pending blood works today Accuchecks Q6H Diabetic clear liquid diet Novolog insulin sliding scale Lantus 36u SC QHS 7) ESRD Dialysis TThSat Nephro consult - Dr. Ambrose - joni appreciated completed dialysis overnight 8) B/L Cellulitis; Left heel wound Podiatry (Dr. 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 Moderate dorsal soft tissue swelling may represent cellulitis in the appropriate clinical setting (please see full report) Patient was just discharged 12/19/16 from hospital per prior ID plan--> Patient was supposed to receive vancomycin IC after each dialysis for [address] Wellington per Fabi Kincaid [employer] note Holding vanco for now. 9) History of CHF (questionable) Cardio consult - Dr. Law - help appreciated ECHO 10/23/16 - there is a small to moderate circumferential pericardial effusion. No evidence of tamponade. The left ventricular systolic function is normal. Elevated left atrial pressure by Tissue Doppler. The right centricular systolic function is normal. There is a trace aortic regurgiation. Mild mitral regurgitation. There is mild to moderate tricuspid regurgiation. Mild pulmonary hypertension (please see full report) F/U repeat ECHO Holding parameters on BP meds: Cozaar 100mg PO daily Hydralazine 25mg PO BID Metolazone 5mg PO daily Lasix 40mg PO daily Aspirin 300mg-->switch to PO Plavix 75mg PO daily--> switch to PO 10) Prophylaxis Plavix 75mg PO daily Heparin drip Pepcid 20mg IVP daily Patient at this time is a full code.
[2016-12-21] MEDS ORDERED: Home Med 1 UNIT (Cholecalciferol [Vitamin D 1000 Iu] 1,000 UNIT) PO SCH (10:00)
[2016-12-21 10:24] LABS: BASO # 0.2 K/uL (0.0-0.2); BASO % 1.1 % (0.0-2.0); EOS # 0.2 K/uL (0.0-0.7); EOS % 1.8 % (0.0-4.0); LYMPH # 1.5 K/uL (1.0-4.3); LYMPH % 11.2 % (20.0-40.0); MEAN CELL VOLUME 94.2 fL (81.0-99.0); MEAN CORPUSCULAR HEMOGLOBIN 30.4 pg (27.0-31.0); MEAN CORPUSCULAR HGB CONC 32.3 g/dL (33.0-37.0); MEAN PLATELET VOLUME 10.8 fL (7.2-11.7); MONO # 1.5 K/uL (0.0-0.8); NEUT # 9.9 K/uL (1.8-7.0); NEUT % 74.9 % (50.0-75.0); RBC 3.96 Mil/uL (3.80-5.20); RED CELL DISTRIBUTION WIDTH 16.4 % (11.5-14.5); WHITE BLOOD COUNT 13.3 K/uL (4.8-10.8)
--- NOTE | 2016-12-21 10:28 | CP.PCM.CON ---
History of Present Illness - History of Present Illness History of Present Illness: I was asked to see patient by Dr. Orellana. Patient is a 71 year old female with a history of PAD, HTN ESRD on HD pericardial effusion, presents with nausea and vomiting. The patient was brought to the ER and admitted for further evaluation. Troponn was 9. She was started on herparin and transferred to ICU. The patient's is at the bedside. She denies current chest pain or dyspnea. Review of Systems - Constitutional Constitutional: Weakness - EENT Eyes: absent: As Per HPI, Blind Spots, Blurred Vision, Change in Vision, Decreased Night Vision, Diplopia, Discharge, Dry Eye, Exophthalmos, Floaters, Irritation, Itchy Eyes, Loss of Peripheral Vision, Pain, Photophobia, Requires Corrective Lenses, Sees Flashes, Spots in Vision, Tunnel Vision, Other Visual Disturbances, Loss of Vision, Other Ears: absent: As Per HPI, Decreased Hearing, Ear Discharge, Ear Pain, Tinnitus, Abnormal Hearing, Disequilibrium, Dizziness, Other Nose/Mouth/Throat: absent: As Per HPI, Epistaxis, Nasal Congestion, Nasal Discharge, Nasal Obstruction, Nasal Trauma, Nose Pain, Post Nasal Drip, Sinus Pain, Sinus Pressure, Bleeding Gums, Change in Voice, Dental Pain, Dry Mouth, Dysphagia, Halitosis, Hoarsness, Lip Swelling, Mouth Lesions, Mouth Pain, Odynophagia, Sore Throat, Throat Swelling, Tongue Swelling, Facial Pain, Neck Pain, Neck Mass, Other - Breasts Breasts: absent: As Per HPI, Change in Shape, Mass, Pain, Nipple Discharge, Nipple Inversion, Skin Changes, Swelling, Other - Cardiovascular Cardiovascular: absent: As Per HPI, Acrocyanosis, Chest Pain, Chest Pain at Rest , Chest Pain with Activity, Claudication, Diaphoresis, Dyspnea, Dyspnea on Exertion, Edema, Irregular Heart Rhythm, Pain Radiating to Arm/Neck/Jaw, Leg Edema, Leg Ulcers, Lightheadedness, Orthopnea, Palpitations, Paroxysmal Nocturnal Dyspnea, Pedal Edema, Radiating Pain, Rapid Heart Rate, Slow Heart Rate, Syncope, Other - Respiratory Respiratory: absent: As Per HPI, Cough, Dyspnea, Hemoptysis, Dyspnea on Exertion , Wheezing, Snoring, Stridor, Pain on Inspiration, Chest Congestion, Excessive Mucous Production, Change in Mucous Color, Pain with Coughing, Other - Gastrointestinal Gastrointestinal: Nausea, Vomiting - Genitourinary Genitourinary: absent: As Per HPI, Change in Urinary Stream, Difficulty Urinating, Dysuria, Flank Pain, Hematuria, Pyuria, Nocturia, Urinary Incontinence, Urinary Frequency, Urinary Hesitance, Urinary Urgency, Voiding Freq/Small Amts, Freq UTI, Hx Renal/Bladder Calculi, Hx /Renal Surgery, Bladder Distension, Other - Musculoskeletal Musculoskeletal: absent: As Per HPI, Abnormal Gait, Arthralgias, Atrophy, Back Pain, Deformity, Joint Swelling, Limited Range of Motion, Loss of Height, Muscle Cramps, Muscle Weakness, Myalgias, Neck Pain, Numbness, Radiating Pain into Limb, Stiffness, Tingling, Other - Integumentary Integumentary: absent: As Per HPI, Acne, Alopecia, Bleeding Lesions, Change in Hair, Change in Nails, Change in Pigmentation, Changing Lesions, Dry Skin, Erythema, Furuncle, Hirsutism, Lesions, New Lesions, Non-Healing Lesions, Photosensitivity, Pruritus, Rash, Skin Pain, Skin Ulcer, Sores, Striae, Swelling , Unusual Bruising, Wounds, Jaundice, Other - Neurological Neurological: absent: As Per HPI, Abnormal Gait, Abnormal Hearing, Abnormal Movements, Abnormal Speech, Behavioral Changes, Burning Sensations, Confusion, Convulsions, Disequilibrium, Dizziness, Numbness, Focal Weakness, Frequent Falls , Headaches, Lack of Coordination, Loss of Vision, Memory Loss, Paresthesias, Radicular Pain, Restless Legs, Sensory Deficit, Syncope, Tingling, Tremor, Vertigo, Weakness, Other Visual Disturbances, Other - Psychiatric Psychiatric: absent: As Per HPI, Abnormal Sleep Pattern, Anhedonia, Anxiety, Auditory Hallucinations, Behavioral Changes, Change in Appetite, Change in Libido, Confusion, Depression, Difficulty Concentrating, Hallucinations, Homicidal Ideation, Hopelessness, Irritability, Memory Loss, Mood Swings, Panic Attacks, Paranoia, Suicidal Ideation, Visual Hallucinations, Tactile Hallucinations, Other - Endocrine Endocrine: absent: As Per HPI, Change in Body Appearance, Change in Libido, Cold Intolorance, Deepening of Voice, Excessive Sweating, Fatigue, Flushing, Heat Intolorance, Increase in Ring/Shoe/Hat Size, Palpitations, Polydipsia, Polyphagia, Polyuria, Other - Hematologic/Lymphatic Hematologic: absent: As Per HPI, Easy Bleeding, Easy Bruising, Lymphadenopathy, Other Past Patient History - Infectious Disease Hx of Infectious Diseases: None - Tetanus Immunizations Tetanus Immunization: Unknown - Past Medical History & Family History Past Medical History?: Yes - Past Social History Smoking Status: Never Smoked - CARDIAC Hx Congestive Heart Failure: Yes Hx Hypercholesterolemia: Yes Hx Hypertension: Yes - PULMONARY Hx Respiratory Disorders: No - NEUROLOGICAL Hx Neurological Disorder: No - HEENT Hx HEENT Problems: Yes Hx Cataracts: Yes - RENAL Date of Last Dialysis Treatment: 12/18/16 - ENDOCRINE/METABOLIC Hx Endocrine Disorders: Yes Hx Diabetes Mellitus Type 2: Yes - HEMATOLOGICAL/ONCOLOGICAL Hx Anemia: Yes - INTEGUMENTARY Hx Dermatological Problems: No (VERY PALE) - MUSCULOSKELETAL/RHEUMATOLOGICAL Hx Musculoskeletal Disorders: Yes Hx Degenerative Joint Disease: Yes Hx Falls: No - GASTROINTESTINAL Hx Gastrointestinal Disorders: No - GENITOURINARY/GYNECOLOGICAL Hx Genitourinary Disorders: Yes Hx Urinary Tract Infection: Yes - PSYCHIATRIC Hx Substance Use: No - SURGICAL HISTORY Hx Appendectomy: Yes - ANESTHESIA Hx Anesthesia: Yes Hx Anesthesia Reactions: No Hx Malignant Hyperthermia: No Meds Allergies/Adverse Reactions: Allergies Allergy/AdvReac Type Severity Reaction Status Date / Time No Known Allergies Allergy Verified 12/20/16 14:34 - Medications Medications: Current Medications Allopurinol (Zyloprim) 100 mg PO DAILY [facility] Aspirin (Aspirin Chewable) 81 mg PO DAILY [facility] Last Admin: 12/21/16 08:24 Dose: 667 mg Clopidogrel Bisulfate (Plavix) 75 mg PO DAILY [facility] Last Admin: 12/20/16 19:11 Dose: 75 mg Collagenase (Santyl) 0 gm TOP DAILY [facility] Escitalopram Oxalate (Lexapro) 10 mg PO DAILY [facility] Famotidine (Pepcid) 20 mg IVP DAILY [facility] Last Admin: 12/20/16 19:11 Dose: 20 mg Furosemide (Lasix) 40 mg PO DAILY [facility] Hydralazine HCl (Apresoline) 25 mg PO BID [facility] Hydromorphone HCl (Dilaudid) 0.5 mg IVP Q6H PRN PRN Reason: Pain, severe (8-10) Last Admin: 12/21/16 08:19 Dose: 0.5 mg Heparin Sodium/Sodium Chloride (Heparin 44885 Units/250ml 1/2 Normal Saline) 25 ,000 units in 250 mls @ 7.62 mls/hr IV .Q24H PRN; Protocol; 12 UNITS/KG/HR PRN Reason: PROTOCOL Last Titration: 12/21/16 02:30 Dose: 9 units/kg/hr, 5.715 mls/hr Metronidazole (Flagyl) 250 mg in 50 mls @ 100 mls/hr IVPB Q8 [facility] Stop: 12/25/16 17:31 Insulin Aspart (Novolog) 0 unit SC Q6H [facility] PRN Reason: Protocol Last Admin: 12/21/16 06:47 Dose: Not Given Insulin Glargine (Lantus) 36 unit SC HS [facility] Last Admin: 12/20/16 23:55 Dose: 36 units Losartan Potassium (Cozaar) 100 mg PO DAILY [facility] Metolazone (Zaroxolyn) 5 mg PO DAILY [facility] Ondansetron HCl (Zofran Inj) 4 mg IVP Q6H PRN PRN Reason: Nausea/Vomiting Last Admin: 12/21/16 09:03 Dose: 4 mg Rosuvastatin Calcium (Crestor) 10 mg PO HS [facility] Last Admin: 12/20/16 23:50 Dose: 10 mg Vitamin B Complex/Vitamin C (Berocca) 1 tab PO DAILY [facility] Physical Exam - Constitutional Appears: Non-toxic - Head Exam Head Exam: NORMAL INSPECTION - Eye Exam Eye Exam: Normal appearance - ENT Exam ENT Exam: Mucous Membranes Moist - Neck Exam Neck exam: Positive for: Full Rom - Respiratory Exam Respiratory Exam: NORMAL BREATHING PATTERN - Cardiovascular Exam Cardiovascular Exam: REGULAR RHYTHM - GI/Abdominal Exam GI & Abdominal Exam: Normal Bowel Sounds - Rectal Exam Rectal Exam: Deferred - Extremities Exam Extremities exam: Negative for: pedal edema - Back Exam Back exam: NORMAL INSPECTION - Neurological Exam Neurological exam: Alert, Oriented x3 - Psychiatric Exam Psychiatric exam: Normal Affect - Skin Skin Exam: Normal Color Results - Vital Signs Recent Vital Signs: Last Vital Signs Temp 98.8 F 12/21/16 00:45 Pulse 83 12/21/16 09:50 Resp 12 12/21/16 09:50 BP 109/43 L 12/21/16 09:34 Pulse Ox 99 12/21/16 09:50 - Labs Result Diagrams: 12/20/16 16:03 12/20/16 16:03 Labs: Laboratory Results - last 24 hr 12/20/16 12/20/16 12/20/16 19:02 22:02 22:19 APTT POC Glucose (mg/dL) 151 H 24 L* 313 H Total Creatine Kinase CK-MB (Mass) Troponin I, Quant NT-Pro-B Natriuret Pep Triglycerides Cholesterol 12/20/16 12/20/16 12/20/16 23:55 23:55 23:56 APTT 182 H* D POC Glucose (mg/dL) 160 H Total Creatine Kinase 55 CK-MB (Mass) 6.79 H Troponin I, Quant 9.0900 H* NT-Pro-B Natriuret Pep [id number] H Triglycerides Cholesterol 12/21/16 12/21/16 12/21/16 03:09 03:55 05:40 APTT POC Glucose (mg/dL) 42 L 142 H 73 Total Creatine Kinase CK-MB (Mass) Troponin I, Quant NT-Pro-B Natriuret Pep Triglycerides Cholesterol 12/21/16 12/21/16 06:41 09:54 APTT POC Glucose (mg/dL) 104 Total Creatine Kinase 32 CK-MB (Mass) Troponin I, Quant NT-Pro-B Natriuret Pep Triglycerides 144 D Cholesterol 178 - EKG Data EKG Interpreted by: Myself EKG shows normal: Sinus rhythm Assessment & Plan (1) NSTEMI (non-ST elevated myocardial infarction) Assessment and Plan: patient has risk factors for CAD. The patient's nausea was likely an anginal equivalent. I will stabilize the patietn medically with heparin, ASA/Plavix. The patient will need cardiac catheterization. I will time cardiac cath with the patient's dialysis schedule. Status: Acute (2) DM2 (diabetes mellitus, type 2) Assessment and Plan: risk factors for CAD Status: Chronic Priority: Medium (3) Hypertension Assessment and Plan: controlled. Status: Chronic
[2016-12-21 10:32] LABS: CK-MB 3.52 ng/mL (0.0-3.38)
[2016-12-21] MEDS: Vitamin B Complex/Vitamin C Tab PO SCH (10:44)
[2016-12-21] MEDS: metOLazone 5 MG TAB PO SCH (10:46)
[2016-12-21] MEDS: Collagenase 250 Units/gm Ointment(30 gm) TOP SCH (10:47)
[2016-12-21 11:57] LABS: ALBUMIN 3.4 g/dL (3.5-5.0)
[2016-12-21 12:01] LABS: ALB/GLOB RATIO 1.1 (1.0-2.1)
[2016-12-21 12:07] LABS: CALCIUM 8.4 mg/dl (8.6-10.4)
--- NOTE | 2016-12-21 12:17 | CP.CCUPN ---
CCU Subjective - Physician Review Events Since Last Encounter (Free Text): 12/21/16 12:15 Patient seen and examined in the intensive care unit. Denies any chest pain but still complaining of nausea Status post hemodialysis yesterday Seen by cardiology CCU Objective - Vital Signs / Intake & Output Vital Signs (Last 4 hours): Vital Signs Pulse Resp BP Pulse Ox 12/21/16 11:00 77 18 99 12/21/16 10:50 81 14 99 12/21/16 10:46 141/52 L 12/21/16 10:40 79 24 99 12/21/16 10:39 78 14 141/52 L 99 12/21/16 10:34 77 14 89/50 L 99 12/21/16 10:30 76 20 99 12/21/16 10:20 79 14 95 12/21/16 10:10 77 18 98 12/21/16 10:08 93 H 98 12/21/16 10:00 80 12 97 12/21/16 09:50 83 12 99 12/21/16 09:40 77 19 99 12/21/16 09:34 78 20 109/43 L 99 12/21/16 09:30 78 19 99 12/21/16 09:20 80 20 98 12/21/16 09:10 82 18 99 12/21/16 09:03 85 13 156/56 H 98 12/21/16 09:01 93 H 10 L 176/63 H 98 12/21/16 09:00 99 H 14 12/21/16 08:50 82 10 L 99 12/21/16 08:40 84 19 99 12/21/16 08:35 84 12 93/51 L 98 12/21/16 08:30 86 16 91 L 12/21/16 08:20 95 H 9 L 95 Intake and Output (Last 8hrs): Intake & Output 12/20/16 12/21/16 12/21/16 22:59 06:59 14:59 Intake Total 122.8 410.6 283.5 Output Total 0 0 0 Balance 122.8 410.6 283.5 Weight 139 lb 139 lb Intake: IV 45 55 Intake, IV Amount 22.8 195.6 28.5 Right Hand 22.8 195.6 28.5 Oral 100 170 200 Output: Stool 0 0 0 Urine/Stool Mix 0 0 Emesis 0 0 0 Other: # Bowel Movements 0 - Physical Exam Head: Positive for: Atraumatic, Normocephalic Conjunctiva: Positive for: Normal Mouth: Positive for: Moist Mucous Membranes Neck: Positive for: Normal Range of Motion Respiratory/Chest: Positive for: Clear to Auscultation Cardiovascular: Positive for: Regular Rate and Rhythm Abdomen: Positive for: Normal Bowel Sounds Upper Extremity: Positive for: Normal Inspection Lower Extremity: Positive for: Normal Inspection Skin: Positive for: Warm Psychiatric: Positive for: Alert, Normal Affect - Medications Active Medications: Active Medications Generic Name Dose Route Start Last Admin Trade Name Freq PRN Reason Stop Dose Admin Allopurinol 100 mg 12/21/16 10:00 12/21/16 10:45 Zyloprim PO 100 mg DAILY ELINA Administration Aspirin 81 mg 12/21/16 10:00 12/21/16 10:45 Aspirin Chewable PO 81 mg DAILY ELINA Administration Calcium Acetate 667 mg 12/21/16 08:00 12/21/16 08:24 Phoslo PO 667 mg BIDCC ELINA Administration Clopidogrel Bisulfate 75 mg 12/20/16 18:50 12/21/16 10:44 Plavix PO 75 mg DAILY ELINA Administration Collagenase 0 gm 12/21/16 10:00 12/21/16 10:47 Santyl TOP 1 appl DAILY ELINA Administration Escitalopram Oxalate 10 mg 12/21/16 10:00 12/21/16 10:45 Lexapro PO 10 mg DAILY ELINA Administration Famotidine 20 mg 12/20/16 18:00 12/21/16 10:47 Pepcid IVP 20 mg DAILY ELINA Administration Furosemide 40 mg 12/21/16 10:00 12/21/16 10:46 Lasix PO 40 mg DAILY ELINA Administration Hydralazine HCl 25 mg 12/21/16 10:00 12/21/16 10:46 Apresoline PO 25 mg BID ELINA Administration Hydromorphone HCl 0.5 mg 12/21/16 08:04 12/21/16 08:19 Dilaudid IVP 0.5 mg Q6H PRN Administration Pain, severe (8-10) Heparin Sodium/Sodium Chloride 25,000 units in 250 mls @ 7.62 mls/hr 12/20/16 17:40 12/21/16 10:52 Heparin 04382 Units/250ml 1/2 Normal Saline IV 11 units/kg/hr .Q24H PRN 6.985 mls/hr PROTOCOL Titration Protocol 12 UNITS/KG/HR Metronidazole 250 mg in 50 mls @ 100 mls/hr 12/21/16 14:00 Flagyl IVPB 12/25/16 17:31 Q8 ELINA Insulin Aspart 0 unit 12/20/16 18:45 12/21/16 11:59 Novolog SC Not Given Q6H ELINA Protocol Losartan Potassium 100 mg 12/21/16 09:10 12/21/16 10:45 Cozaar PO 100 mg DAILY ELINA Administration Metolazone 5 mg 12/21/16 10:00 12/21/16 10:46 Zaroxolyn PO 5 mg DAILY ELINA Administration Ondansetron HCl 4 mg 12/20/16 17:19 12/21/16 09:03 Zofran Inj IVP 4 mg Q6H PRN Administration Nausea/Vomiting Rosuvastatin Calcium 10 mg 12/20/16 22:00 12/20/16 23:50 Crestor PO 10 mg HS ELINA Administration Vitamin B Complex/Vitamin C 1 tab 12/21/16 10:00 12/21/16 10:44 Berocca PO 1 tab DAILY ELINA Administration - Patient Studies Lab Studies: Lab Studies 12/21/16 12/21/16 12/21/16 Range/Units 12:07 11:52 09:54 WBC (4.8-10.8) K/uL RBC (3.80-5.20) Mil/uL Hgb (11.0-16.0) g/dL Hct (34.0-47.0) % MCV (81.0-99.0) fL MCH (27.0-31.0) pg MCHC (33.0-37.0) g/dL RDW (11.5-14.5) % Plt Count (130-400) K/uL MPV (7.2-11.7) fL Neut % (Auto) (50.0-75.0) % Lymph % (Auto) (20.0-40.0) % [place] % (Auto) (0.0-10.0) % Eos % (Auto) (0.0-4.0) % Baso % (Auto) (0.0-2.0) % Neut # (1.8-7.0) K/uL Lymph # (1.0-4.3) K/uL [place] # (0.0-0.8) K/uL Eos # (0.0-0.7) K/uL Baso # (0.0-0.2) K/uL APTT (21-34) SECONDS Sodium 132 (132-148) mmol/L Potassium 4.2 (3.6-5.2) mmol/L Chloride 92 L (98-107) mmol/L Carbon Dioxide 24 (22-30) mmol/L Anion Gap 20 (10-20) BUN 22 H (7-17) mg/dL Creatinine 4.2 H (0.7-1.2) MG/DL Est GFR ( Amer) 13 Est GFR (Non-Af Amer) 10 POC Glucose (mg/dL) 203 H 35 L* (65-110) mg/dL Random Glucose 80 (65-105) mg/dL Calcium 8.4 L (8.6-10.4) mg/dl Magnesium 2.0 (1.6-2.3) mg/dL Total Bilirubin 0.6 (0.2-1.3) mg/dL AST 37 H (14-36) U/L ALT 28 (9-52) U/L Alkaline Phosphatase 101 (38-126) U/L Total Creatine Kinase 32 (30-135) U/L CK-MB (Mass) 3.52 H (0.0-3.38) ng/mL Troponin I, Quant 6.5600 H* (0.00-0.120) ng/mL NT-Pro-B Natriuret Pep (0-900) pg/mL Total Protein 6.6 (6.3-8.3) g/dL Albumin 3.4 L (3.5-5.0) g/dL Globulin 3.2 (2.2-3.9) gm/dL Albumin/Globulin Ratio 1.1 (1.0-2.1) Triglycerides 144 D (0-149) mg/dL Cholesterol 178 (0-199) mg/dL LDL Cholesterol Direct 93 (0-129) mg/dL HDL Cholesterol 46 (30-70) mg/dL Procalcitonin (0.19-0.49) NG/ML TSH 3rd Generation 1.09 (0.46-4.68) mIU/L 12/21/16 12/21/16 12/21/16 Range/Units 09:41 09:41 06:41 WBC 13.3 H (4.8-10.8) K/uL RBC 3.96 (3.80-5.20) Mil/uL Hgb 12.0 (11.0-16.0) g/dL Hct 37.3 (34.0-47.0) % MCV 94.2 (81.0-99.0) fL MCH 30.4 (27.0-31.0) pg MCHC 32.3 L (33.0-37.0) g/dL RDW 16.4 H (11.5-14.5) % Plt Count 198 (130-400) K/uL MPV 10.8 (7.2-11.7) fL Neut % (Auto) 74.9 (50.0-75.0) % Lymph % (Auto) 11.2 L (20.0-40.0) % [place] % (Auto) 11.0 H (0.0-10.0) % Eos % (Auto) 1.8 (0.0-4.0) % Baso % (Auto) 1.1 (0.0-2.0) % Neut # 9.9 H (1.8-7.0) K/uL Lymph # 1.5 (1.0-4.3) K/uL [place] # 1.5 H (0.0-0.8) K/uL Eos # 0.2 (0.0-0.7) K/uL Baso # 0.2 (0.0-0.2) K/uL APTT 37 H D (21-34) SECONDS Sodium (132-148) mmol/L Potassium (3.6-5.2) mmol/L Chloride (98-107) mmol/L Carbon Dioxide (22-30) mmol/L Anion Gap (10-20) BUN (7-17) mg/dL Creatinine (0.7-1.2) MG/DL Est GFR ( Amer) Est GFR (Non-Af Amer) POC Glucose (mg/dL) 104 (65-110) mg/dL Random Glucose (65-105) mg/dL Calcium (8.6-10.4) mg/dl Magnesium (1.6-2.3) mg/dL Total Bilirubin (0.2-1.3) mg/dL AST (14-36) U/L ALT (9-52) U/L Alkaline Phosphatase (38-126) U/L Total Creatine Kinase (30-135) U/L CK-MB (Mass) (0.0-3.38) ng/mL Troponin I, Quant (0.00-0.120) ng/mL NT-Pro-B Natriuret Pep (0-900) pg/mL Total Protein (6.3-8.3) g/dL Albumin (3.5-5.0) g/dL Globulin (2.2-3.9) gm/dL Albumin/Globulin Ratio (1.0-2.1) Triglycerides (0-149) mg/dL Cholesterol (0-199) mg/dL LDL Cholesterol Direct (0-129) mg/dL HDL Cholesterol (30-70) mg/dL Procalcitonin (0.19-0.49) NG/ML TSH 3rd Generation (0.46-4.68) mIU/L 12/21/16 12/21/16 12/21/16 Range/Units 05:40 03:55 03:09 WBC (4.8-10.8) K/uL RBC (3.80-5.20) Mil/uL Hgb (11.0-16.0) g/dL Hct (34.0-47.0) % MCV (81.0-99.0) fL MCH (27.0-31.0) pg MCHC (33.0-37.0) g/dL RDW (11.5-14.5) % Plt Count (130-400) K/uL MPV (7.2-11.7) fL Neut % (Auto) (50.0-75.0) % Lymph % (Auto) (20.0-40.0) % [place] % (Auto) (0.0-10.0) % Eos % (Auto) (0.0-4.0) % Baso % (Auto) (0.0-2.0) % Neut # (1.8-7.0) K/uL Lymph # (1.0-4.3) K/uL [place] # (0.0-0.8) K/uL Eos # (0.0-0.7) K/uL Baso # (0.0-0.2) K/uL APTT (21-34) SECONDS Sodium (132-148) mmol/L Potassium (3.6-5.2) mmol/L Chloride (98-107) mmol/L Carbon Dioxide (22-30) mmol/L Anion Gap (10-20) BUN (7-17) mg/dL Creatinine (0.7-1.2) MG/DL Est GFR ( Amer) Est GFR (Non-Af Amer) POC Glucose (mg/dL) 73 142 H 42 L (65-110) mg/dL Random Glucose (65-105) mg/dL Calcium (8.6-10.4) mg/dl Magnesium (1.6-2.3) mg/dL Total Bilirubin (0.2-1.3) mg/dL AST (14-36) U/L ALT (9-52) U/L Alkaline Phosphatase (38-126) U/L Total Creatine Kinase (30-135) U/L CK-MB (Mass) (0.0-3.38) ng/mL Troponin I, Quant (0.00-0.120) ng/mL NT-Pro-B Natriuret Pep (0-900) pg/mL Total Protein (6.3-8.3) g/dL Albumin (3.5-5.0) g/dL Globulin (2.2-3.9) gm/dL Albumin/Globulin Ratio (1.0-2.1) Triglycerides (0-149) mg/dL Cholesterol (0-199) mg/dL LDL Cholesterol Direct (0-129) mg/dL HDL Cholesterol (30-70) mg/dL Procalcitonin (0.19-0.49) NG/ML TSH 3rd Generation (0.46-4.68) mIU/L 12/20/16 12/20/16 12/20/16 Range/Units 23:56 23:55 23:55 WBC (4.8-10.8) K/uL RBC (3.80-5.20) Mil/uL Hgb (11.0-16.0) g/dL Hct (34.0-47.0) % MCV (81.0-99.0) fL MCH (27.0-31.0) pg MCHC (33.0-37.0) g/dL RDW (11.5-14.5) % Plt Count (130-400) K/uL MPV (7.2-11.7) fL Neut % (Auto) (50.0-75.0) % Lymph % (Auto) (20.0-40.0) % [place] % (Auto) (0.0-10.0) % Eos % (Auto) (0.0-4.0) % Baso % (Auto) (0.0-2.0) % Neut # (1.8-7.0) K/uL Lymph # (1.0-4.3) K/uL [place] # (0.0-0.8) K/uL Eos # (0.0-0.7) K/uL Baso # (0.0-0.2) K/uL APTT 182 H* D (21-34) SECONDS Sodium (132-148) mmol/L Potassium (3.6-5.2) mmol/L Chloride (98-107) mmol/L Carbon Dioxide (22-30) mmol/L Anion Gap (10-20) BUN (7-17) mg/dL Creatinine (0.7-1.2) MG/DL Est GFR ( Amer) Est GFR (Non-Af Amer) POC Glucose (mg/dL) 160 H (65-110) mg/dL Random Glucose (65-105) mg/dL Calcium (8.6-10.4) mg/dl Magnesium (1.6-2.3) mg/dL Total Bilirubin (0.2-1.3) mg/dL AST (14-36) U/L ALT (9-52) U/L Alkaline Phosphatase (38-126) U/L Total Creatine Kinase 55 (30-135) U/L CK-MB (Mass) 6.79 H (0.0-3.38) ng/mL Troponin I, Quant 9.0900 H* (0.00-0.120) ng/mL NT-Pro-B Natriuret Pep 564600 H (0-900) pg/mL Total Protein (6.3-8.3) g/dL Albumin (3.5-5.0) g/dL Globulin (2.2-3.9) gm/dL Albumin/Globulin Ratio (1.0-2.1) Triglycerides (0-149) mg/dL Cholesterol (0-199) mg/dL LDL Cholesterol Direct (0-129) mg/dL HDL Cholesterol (30-70) mg/dL Procalcitonin (0.19-0.49) NG/ML TSH 3rd Generation (0.46-4.68) mIU/L 12/20/16 12/20/16 12/20/16 Range/Units 23:55 22:19 22:02 WBC (4.8-10.8) K/uL RBC (3.80-5.20) Mil/uL Hgb (11.0-16.0) g/dL Hct (34.0-47.0) % MCV (81.0-99.0) fL MCH (27.0-31.0) pg MCHC (33.0-37.0) g/dL RDW (11.5-14.5) % Plt Count (130-400) K/uL MPV (7.2-11.7) fL Neut % (Auto) (50.0-75.0) % Lymph % (Auto) (20.0-40.0) % [place] % (Auto) (0.0-10.0) % Eos % (Auto) (0.0-4.0) % Baso % (Auto) (0.0-2.0) % Neut # (1.8-7.0) K/uL Lymph # (1.0-4.3) K/uL [place] # (0.0-0.8) K/uL Eos # (0.0-0.7) K/uL Baso # (0.0-0.2) K/uL APTT (21-34) SECONDS Sodium (132-148) mmol/L Potassium (3.6-5.2) mmol/L Chloride (98-107) mmol/L Carbon Dioxide (22-30) mmol/L Anion Gap (10-20) BUN (7-17) mg/dL Creatinine (0.7-1.2) MG/DL Est GFR ( Amer) Est GFR (Non-Af Amer) POC Glucose (mg/dL) 313 H 24 L* (65-110) mg/dL Random Glucose (65-105) mg/dL Calcium (8.6-10.4) mg/dl Magnesium (1.6-2.3) mg/dL Total Bilirubin (0.2-1.3) mg/dL AST (14-36) U/L ALT (9-52) U/L Alkaline Phosphatase (38-126) U/L Total Creatine Kinase (30-135) U/L CK-MB (Mass) (0.0-3.38) ng/mL Troponin I, Quant (0.00-0.120) ng/mL NT-Pro-B Natriuret Pep (0-900) pg/mL Total Protein (6.3-8.3) g/dL Albumin (3.5-5.0) g/dL Globulin (2.2-3.9) gm/dL Albumin/Globulin Ratio (1.0-2.1) Triglycerides (0-149) mg/dL Cholesterol (0-199) mg/dL LDL Cholesterol Direct (0-129) mg/dL HDL Cholesterol (30-70) mg/dL Procalcitonin 0.38 (0.19-0.49) NG/ML TSH 3rd Generation (0.46-4.68) mIU/L 12/20/16 Range/Units 19:02 WBC (4.8-10.8) K/uL RBC (3.80-5.20) Mil/uL Hgb (11.0-16.0) g/dL Hct (34.0-47.0) % MCV (81.0-99.0) fL MCH (27.0-31.0) pg MCHC (33.0-37.0) g/dL RDW (11.5-14.5) % Plt Count (130-400) K/uL MPV (7.2-11.7) fL Neut % (Auto) (50.0-75.0) % Lymph % (Auto) (20.0-40.0) % [place] % (Auto) (0.0-10.0) % Eos % (Auto) (0.0-4.0) % Baso % (Auto) (0.0-2.0) % Neut # (1.8-7.0) K/uL Lymph # (1.0-4.3) K/uL [place] # (0.0-0.8) K/uL Eos # (0.0-0.7) K/uL Baso # (0.0-0.2) K/uL APTT (21-34) SECONDS Sodium (132-148) mmol/L Potassium (3.6-5.2) mmol/L Chloride (98-107) mmol/L Carbon Dioxide (22-30) mmol/L Anion Gap (10-20) BUN (7-17) mg/dL Creatinine (0.7-1.2) MG/DL Est GFR ( Amer) Est GFR (Non-Af Amer) POC Glucose (mg/dL) 151 H (65-110) mg/dL Random Glucose (65-105) mg/dL Calcium (8.6-10.4) mg/dl Magnesium (1.6-2.3) mg/dL Total Bilirubin (0.2-1.3) mg/dL AST (14-36) U/L ALT (9-52) U/L Alkaline Phosphatase (38-126) U/L Total Creatine Kinase (30-135) U/L CK-MB (Mass) (0.0-3.38) ng/mL Troponin I, Quant (0.00-0.120) ng/mL NT-Pro-B Natriuret Pep (0-900) pg/mL Total Protein (6.3-8.3) g/dL Albumin (3.5-5.0) g/dL Globulin (2.2-3.9) gm/dL Albumin/Globulin Ratio (1.0-2.1) Triglycerides (0-149) mg/dL Cholesterol (0-199) mg/dL LDL Cholesterol Direct (0-129) mg/dL HDL Cholesterol (30-70) mg/dL Procalcitonin (0.19-0.49) NG/ML TSH 3rd Generation (0.46-4.68) mIU/L Laboratory Results - last 24 hr 12/20/16 12/20/16 12/20/16 19:02 22:02 22:19 WBC RBC Hgb Hct MCV MCH MCHC RDW Plt Count MPV Neut % (Auto) Lymph % (Auto) [place] % (Auto) Eos % (Auto) Baso % (Auto) Neut # Lymph # [place] # Eos # Baso # APTT Sodium Potassium Chloride Carbon Dioxide Anion Gap BUN Creatinine Est GFR ( Amer) Est GFR (Non-Af Amer) POC Glucose (mg/dL) 151 H 24 L* 313 H Random Glucose Calcium Magnesium Total Bilirubin AST ALT Alkaline Phosphatase Total Creatine Kinase CK-MB (Mass) Troponin I, Quant NT-Pro-B Natriuret Pep Total Protein Albumin Globulin Albumin/Globulin Ratio Triglycerides Cholesterol LDL Cholesterol Direct HDL Cholesterol Procalcitonin TSH 3rd Generation 12/20/16 12/20/16 12/20/16 23:55 23:55 23:55 WBC RBC Hgb Hct MCV MCH MCHC RDW Plt Count MPV Neut % (Auto) Lymph % (Auto) [place] % (Auto) Eos % (Auto) Baso % (Auto) Neut # Lymph # [place] # Eos # Baso # APTT 182 H* D Sodium Potassium Chloride Carbon Dioxide Anion Gap BUN Creatinine Est GFR ( Amer) Est GFR (Non-Af Amer) POC Glucose (mg/dL) Random Glucose Calcium Magnesium Total Bilirubin AST ALT Alkaline Phosphatase Total Creatine Kinase 55 CK-MB (Mass) 6.79 H Troponin I, Quant 9.0900 H* NT-Pro-B Natriuret Pep 328608 H Total Protein Albumin Globulin Albumin/Globulin Ratio Triglycerides Cholesterol LDL Cholesterol Direct HDL Cholesterol Procalcitonin 0.38 TSH 3rd Generation 12/20/16 12/21/16 12/21/16 23:56 03:09 03:55 WBC RBC Hgb Hct MCV MCH MCHC RDW Plt Count MPV Neut % (Auto) Lymph % (Auto) [place] % (Auto) Eos % (Auto) Baso % (Auto) Neut # Lymph # [place] # Eos # Baso # APTT Sodium Potassium Chloride Carbon Dioxide Anion Gap BUN Creatinine Est GFR ( Amer) Est GFR (Non-Af Amer) POC Glucose (mg/dL) 160 H 42 L 142 H Random Glucose Calcium Magnesium Total Bilirubin AST ALT Alkaline Phosphatase Total Creatine Kinase CK-MB (Mass) Troponin I, Quant NT-Pro-B Natriuret Pep Total Protein Albumin Globulin Albumin/Globulin Ratio Triglycerides Cholesterol LDL Cholesterol Direct HDL Cholesterol Procalcitonin TSH 3rd Generation 12/21/16 12/21/16 12/21/16 05:40 06:41 09:41 WBC 13.3 H RBC 3.96 Hgb 12.0 Hct 37.3 MCV 94.2 MCH 30.4 MCHC 32.3 L RDW 16.4 H Plt Count 198 MPV 10.8 Neut % (Auto) 74.9 Lymph % (Auto) 11.2 L [place] % (Auto) 11.0 H Eos % (Auto) 1.8 Baso % (Auto) 1.1 Neut # 9.9 H Lymph # 1.5 [place] # 1.5 H Eos # 0.2 Baso # 0.2 APTT Sodium Potassium Chloride Carbon Dioxide Anion Gap BUN Creatinine Est GFR ( Amer) Est GFR (Non-Af Amer) POC Glucose (mg/dL) 73 104 Random Glucose Calcium Magnesium Total Bilirubin AST ALT Alkaline Phosphatase Total Creatine Kinase CK-MB (Mass) Troponin I, Quant NT-Pro-B Natriuret Pep Total Protein Albumin Globulin Albumin/Globulin Ratio Triglycerides Cholesterol LDL Cholesterol Direct HDL Cholesterol Procalcitonin TSH 3rd Generation 12/21/16 12/21/16 12/21/16 09:41 09:54 11:52 WBC RBC Hgb Hct MCV MCH MCHC RDW Plt Count MPV Neut % (Auto) Lymph % (Auto) [place] % (Auto) Eos % (Auto) Baso % (Auto) Neut # Lymph # [place] # Eos # Baso # APTT 37 H D Sodium 132 Potassium 4.2 Chloride 92 L Carbon Dioxide 24 Anion Gap 20 BUN 22 H Creatinine 4.2 H Est GFR ( Amer) 13 Est GFR (Non-Af Amer) 10 POC Glucose (mg/dL) 35 L* Random Glucose 80 Calcium 8.4 L Magnesium 2.0 Total Bilirubin 0.6 AST 37 H ALT 28 Alkaline Phosphatase 101 Total Creatine Kinase 32 CK-MB (Mass) 3.52 H Troponin I, Quant 6.5600 H* NT-Pro-B Natriuret Pep Total Protein 6.6 Albumin 3.4 L Globulin 3.2 Albumin/Globulin Ratio 1.1 Triglycerides 144 D Cholesterol 178 LDL Cholesterol Direct 93 HDL Cholesterol 46 Procalcitonin TSH 3rd Generation 1.09 12/21/16 12:07 WBC RBC Hgb Hct MCV MCH MCHC RDW Plt Count MPV Neut % (Auto) Lymph % (Auto) [place] % (Auto) Eos % (Auto) Baso % (Auto) Neut # Lymph # [place] # Eos # Baso # APTT Sodium Potassium Chloride Carbon Dioxide Anion Gap BUN Creatinine Est GFR ( Amer) Est GFR (Non-Af Amer) POC Glucose (mg/dL) 203 H Random Glucose Calcium Magnesium Total Bilirubin AST ALT Alkaline Phosphatase Total Creatine Kinase CK-MB (Mass) Troponin I, Quant NT-Pro-B Natriuret Pep Total Protein Albumin Globulin Albumin/Globulin Ratio Triglycerides Cholesterol LDL Cholesterol Direct HDL Cholesterol Procalcitonin TSH 3rd Generation EKG/Cardiology Studies: Cardiology / EKG Studies 12/20/16 16:55 EKG [ELECTROCARDIOGRAM] Stat Comment: Mode Of Transportation: Reason For Exam: positive troponin 12/20/16 22:30 EKG [ELECTROCARDIOGRAM] Timed Comment: Mode Of Transportation: Reason For Exam: NSTEMI 12/21/16 04:30 EKG [ELECTROCARDIOGRAM] Timed Comment: Mode Of Transportation: Reason For Exam: NSTEMI Fingerstick Blood Sugar Results: 42 Critical Care Progress Note - Nutrition Nutrition: Nutrition Category Date Time Status Renal Diet [DIET] Diets 12/21/16 Breakfast Active Assessment/Plan (1) Elevated troponin Current Visit: Yes Status: Acute Comment: Non-ST elevation DC Seen by cardiology and plan is to get cardiac cath Continue heparin, aspirin and Plavix (2) End stage renal disease on dialysis Current Visit: Yes Status: Acute Comment: Continue hemodialysis (3) Vomiting Current Visit: Yes Status: Acute
[2016-12-21] MEDS: metroNIDAZOLE IV 250mg/50 ml 250 MG/50 ML BAG IVPB SCH ×2 (14:08→22:50)
--- NOTE | 2016-12-21 17:35 | CP.PCM.CON ---
History of Present Illness - History of Present Illness History of Present Illness: 71 year old female presents to the emergency department with complaints of vomiting since yesterday. Patient notes a history of diabetes, HTN, and is end stage renal dialysis. Her last dialysis was and had a scheduled dialysis for today but did not go because she came to the emergency department instead. FOUND TO HAVE ELEVATED TROPONINS DR MAKI ON BOARD WAS DISCHARGED RECENTLY AFTER DEVELOPING LEFT ARM AV SISTULA INFECTION- SENT ON IV ANTIBIOTICS SEVERE PVD- NONHEALING ULCER LEFT ANKLE - Medical History PMH: Anemia, Anxiety, CHF, Depression (BROTHER LAST YEAR), Diabetes, HTN, Hypercholesterolemia, End Stage Renal Disease, Chronic Kidney Disease Surgical History: Appendectomy, Endoscopy (OCTOBER 2013) - [facility] Procedures ANESTH INJECT-SPIN CANAL (01/08/15) ANGIOPLASTY OF OTHER NON-CORONARY VESSEL(S) (03/01/14) ATHERECTOMY OF OTHER NON-CORONARY VESSEL(S) (03/01/14) BYPASS L BASILIC VEIN TO UP VEIN W SYNTH SUB, OPEN (10/21/16) DILATION OF LEFT POPLITEAL ARTERY, PERCUTANEOUS APPROACH (10/21/16) DRAINAGE OF LEFT LOWER ARM SKIN, EXTERNAL APPROACH (11/28/16) DRAINAGE OF LEFT PLEURAL CAVITY, PERCUTANEOUS APPROACH (10/10/15) EXCISION OF LEFT LOWER ARM SKIN, EXTERNAL APPROACH (11/28/16) EXERCISE TREATMENT OF MUSCULOSK WHOLE USING ASSIST EQUIPMENT (10/17/15) GAIT TRAINING/AMBULAT TREATMENT USING ASSIST EQUIPMENT (10/17/15) HOME MANAGEMENT TREATMENT USING ASSIST EQUIPMENT (10/17/15) IMMOBILIZ/WOUND ATTN NEC (06/24/13) INJECT STEROID (01/08/15) INJECT/INFUSE NEC (01/08/14) INSEJ OF DRUG-ELUTING STENT(S) OF OTH PERIPHERAL VESSEL(S) (03/01/14) INSERT INFUSION DEV IN R INT JUGULAR VEIN, PERC (10/21/16) INSERTION OF INFUSION DEV INTO SUP VENA CAVA, PERC APPROACH (11/28/16) INSERTION OF TWO VASCULAR STENTS (03/01/14) INTRODUCE OF OTH ANTI-INFECT INTO PERIPH VEIN, PERC APPROACH (10/17/15) PERFORMANCE OF URINARY FILTRATION, MULTIPLE (11/28/16) PROCEDURE ON SINGLE VESSEL (03/01/14) SPINAL CANAL INJECT NEC (08/17/15) TRANSFUSE NONAUT RED BLOOD CELLS IN PERIPH VEIN, PERC (11/28/16) VACCINATION NEC (11/29/14) Review of Systems - Constitutional Constitutional: As Per HPI - EENT Eyes: absent: As Per HPI, Blind Spots, Blurred Vision, Change in Vision, Decreased Night Vision, Diplopia, Discharge, Dry Eye, Exophthalmos, Floaters, Irritation, Itchy Eyes, Loss of Peripheral Vision, Pain, Photophobia, Requires Corrective Lenses, Sees Flashes, Spots in Vision, Tunnel Vision, Other Visual Disturbances, Loss of Vision, Other Ears: absent: As Per HPI, Decreased Hearing, Ear Discharge, Ear Pain, Tinnitus, Abnormal Hearing, Disequilibrium, Dizziness, Other Nose/Mouth/Throat: absent: As Per HPI, Epistaxis, Nasal Congestion, Nasal Discharge, Nasal Obstruction, Nasal Trauma, Nose Pain, Post Nasal Drip, Sinus Pain, Sinus Pressure, Bleeding Gums, Change in Voice, Dental Pain, Dry Mouth, Dysphagia, Halitosis, Hoarsness, Lip Swelling, Mouth Lesions, Mouth Pain, Odynophagia, Sore Throat, Throat Swelling, Tongue Swelling, Facial Pain, Neck Pain, Neck Mass, Other - Breasts Breasts: absent: As Per HPI, Change in Shape, Mass, Pain, Nipple Discharge, Nipple Inversion, Skin Changes, Swelling, Other - Cardiovascular Cardiovascular: As Per HPI - Respiratory Respiratory: absent: As Per HPI, Cough, Dyspnea, Hemoptysis, Dyspnea on Exertion , Wheezing, Snoring, Stridor, Pain on Inspiration, Chest Congestion, Excessive Mucous Production, Change in Mucous Color, Pain with Coughing, Other - Gastrointestinal Gastrointestinal: As Per HPI - Genitourinary Genitourinary: absent: As Per HPI, Change in Urinary Stream, Difficulty Urinating, Dysuria, Flank Pain, Hematuria, Pyuria, Nocturia, Urinary Incontinence, Urinary Frequency, Urinary Hesitance, Urinary Urgency, Voiding Freq/Small Amts, Freq UTI, Hx Renal/Bladder Calculi, Hx /Renal Surgery, Bladder Distension, Other - Reproductive: Female Reproductive:Female: absent: As Per HPI, Amenorrhea, Amenorrhea/ Control, Currently Menstual, Cycle <21 Days, Cycle >35 Days, Cycle Variable, Menses 1-7 Days, Menses >/= 8 Days, Menses Variable, Cycle > 4 Weeks Between, No Menses for 6 Months, Heavy Menses, Light Menses, Normal Menses, Spotting Between Cycles , S/P Hysterectomy, Menopausal, Post Menopausal, Premenarche, Abnormal Vaginal Bleeding, Dysmenorrhea, Dyspareunia, Genital Lesions, Genital Pruritis, Pelvic Pain, Prolapse Symptoms, Sexual Dysfunction, Vaginal Discharge, Vaginal Dryness , Vaginal Odor, Vaginal Pruritis, Other - Menstruation Menstruation: absent: As Per HPI, Amenorrhea, Amenorrhea/ Control, Currently Menstual, Cycle <21 Days, Cycle >35 Days, Cycle Variable, Menses 1-7 Days, Menses >/= 8 Days, Menses Variable, Cycle > 4 Weeks Between, No Menses for 6 Months, Heavy Menses, Light Menses, Normal Menses, Spotting Between Cycles , S/P Hysterectomy, Menopausal, Post Menopausal, Premenarche, Abnormal Vaginal Bleeding, Dysmenorrhea, Other - Musculoskeletal Musculoskeletal: As Per HPI - Integumentary Integumentary: As Per HPI, Skin Pain, Wounds - Neurological Neurological: absent: As Per HPI, Abnormal Gait, Abnormal Hearing, Abnormal Movements, Abnormal Speech, Behavioral Changes, Burning Sensations, Confusion, Convulsions, Disequilibrium, Dizziness, Numbness, Focal Weakness, Frequent Falls , Headaches, Lack of Coordination, Loss of Vision, Memory Loss, Paresthesias, Radicular Pain, Restless Legs, Sensory Deficit, Syncope, Tingling, Tremor, Vertigo, Weakness, Other Visual Disturbances, Other - Psychiatric Psychiatric: absent: As Per HPI, Abnormal Sleep Pattern, Anhedonia, Anxiety, Auditory Hallucinations, Behavioral Changes, Change in Appetite, Change in Libido, Confusion, Depression, Difficulty Concentrating, Hallucinations, Homicidal Ideation, Hopelessness, Irritability, Memory Loss, Mood Swings, Panic Attacks, Paranoia, Suicidal Ideation, Visual Hallucinations, Tactile Hallucinations, Other - Endocrine Endocrine: absent: As Per HPI, Change in Body Appearance, Change in Libido, Cold Intolorance, Deepening of Voice, Excessive Sweating, Fatigue, Flushing, Heat Intolorance, Increase in Ring/Shoe/Hat Size, Palpitations, Polydipsia, Polyphagia, Polyuria, Other - Hematologic/Lymphatic Hematologic: absent: As Per HPI, Easy Bleeding, Easy Bruising, Lymphadenopathy, Other Past Patient History - Infectious Disease Hx of Infectious Diseases: None - Tetanus Immunizations Tetanus Immunization: Unknown - Past Medical History & Family History Past Medical History?: Yes - Past Social History Smoking Status: Never Smoked - CARDIAC Hx Congestive Heart Failure: Yes Hx Hypercholesterolemia: Yes Hx Hypertension: Yes - PULMONARY Hx Respiratory Disorders: No - NEUROLOGICAL Hx Neurological Disorder: No - HEENT Hx HEENT Problems: Yes Hx Cataracts: Yes - RENAL Date of Last Dialysis Treatment: 12/18/16 - ENDOCRINE/METABOLIC Hx Endocrine Disorders: Yes Hx Diabetes Mellitus Type 2: Yes - HEMATOLOGICAL/ONCOLOGICAL Hx Anemia: Yes - INTEGUMENTARY Hx Dermatological Problems: No (VERY PALE) - MUSCULOSKELETAL/RHEUMATOLOGICAL Hx Musculoskeletal Disorders: Yes Hx Degenerative Joint Disease: Yes Hx Falls: No - GASTROINTESTINAL Hx Gastrointestinal Disorders: No - GENITOURINARY/GYNECOLOGICAL Hx Genitourinary Disorders: Yes Hx Urinary Tract Infection: Yes - PSYCHIATRIC Hx Substance Use: No - SURGICAL HISTORY Hx Appendectomy: Yes - ANESTHESIA Hx Anesthesia: Yes Hx Anesthesia Reactions: No Hx Malignant Hyperthermia: No Meds Allergies/Adverse Reactions: Allergies Allergy/AdvReac Type Severity Reaction Status Date / Time No Known Allergies Allergy Verified 12/20/16 14:34 - Medications Medications: Current Medications Allopurinol (Zyloprim) 100 mg PO DAILY [facility] Last Admin: 12/21/16 10:45 Dose: 100 mg Aspirin (Aspirin Chewable) 81 mg PO DAILY [facility] Last Admin: 12/21/16 10:45 Dose: 81 mg [facility] Last Admin: 12/21/16 17:09 Dose: 667 mg Clopidogrel Bisulfate (Plavix) 75 mg PO DAILY [facility] Last Admin: 12/21/16 10:44 Dose: 75 mg Collagenase (Santyl) 0 gm TOP DAILY [facility] Last Admin: 12/21/16 10:47 Dose: 1 appl Escitalopram Oxalate (Lexapro) 10 mg PO DAILY [facility] Last Admin: 12/21/16 10:45 Dose: 10 mg Famotidine (Pepcid) 20 mg IVP DAILY [facility] Last Admin: 12/21/16 10:47 Dose: 20 mg Furosemide (Lasix) 40 mg PO DAILY [facility] Last Admin: 12/21/16 10:46 Dose: 40 mg Hydralazine HCl (Apresoline) 25 mg PO BID [facility] Last Admin: 12/21/16 17:09 Dose: 25 mg Hydromorphone HCl (Dilaudid) 0.5 mg IVP Q6H PRN PRN Reason: Pain, severe (8-10) Last Admin: 12/21/16 08:19 Dose: 0.5 mg Heparin Sodium/Sodium Chloride (Heparin 40159 Units/250ml 1/2 Normal Saline) 25 ,000 units in 250 mls @ 7.62 mls/hr IV .Q24H PRN; Protocol; 12 UNITS/KG/HR PRN Reason: PROTOCOL Last Titration: 12/21/16 10:52 Dose: 11 units/kg/hr, 6.985 mls/hr Metronidazole (Flagyl) 250 mg in 50 mls @ 100 mls/hr IVPB Q8 [facility] Stop: 12/25/16 17:31 Last Admin: 12/21/16 14:08 Dose: 100 mls/hr Insulin Aspart (Novolog) 0 unit SC Q6H ELINA PRN Reason: Protocol Last Admin: 12/21/16 11:59 Dose: Not Given Losartan Potassium (Cozaar) 100 mg PO DAILY [facility] Last Admin: 12/21/16 10:45 Dose: 100 mg Metolazone (Zaroxolyn) 5 mg PO DAILY [facility] Last Admin: 12/21/16 10:46 Dose: 5 mg Ondansetron HCl (Zofran Inj) 4 mg IVP Q6H PRN PRN Reason: Nausea/Vomiting Last Admin: 12/21/16 17:19 Dose: 4 mg Rosuvastatin Calcium (Crestor) 10 mg PO HS [facility] Last Admin: 12/20/16 23:50 Dose: 10 mg Vitamin B Complex/Vitamin C (Berocca) 1 tab PO DAILY [facility] Last Admin: 12/21/16 10:44 Dose: 1 tab Physical Exam - Constitutional Appears: Non-toxic, Cachectic, Chronically Ill - Head Exam Head Exam: ATRAUMATIC, NORMAL INSPECTION, NORMOCEPHALIC - Eye Exam Eye Exam: EOMI, PERRL. absent: Scleral icterus - ENT Exam ENT Exam: Mucous Membranes Dry, Normal External Ear Exam - Neck Exam Neck exam: Negative for: Lymphadenopathy, Thyromegaly - Respiratory Exam Respiratory Exam: Decreased Breath Sounds, Prolonged Expiratory Phase, Rhonchi - Cardiovascular Exam Cardiovascular Exam: REGULAR RHYTHM, +S1, +S2 - GI/Abdominal Exam GI & Abdominal Exam: Diminished Bowel Sounds, Soft. absent: Tenderness - Rectal Exam Rectal Exam: Deferred - Exam Exam: NORMAL INSPECTION - Extremities Exam Extremities exam: Positive for: pedal edema. Negative for: calf tenderness, tenderness, pedal pulses present - Back Exam Back exam: absent: CVA tenderness (L), CVA tenderness (R), paraspinal tenderness - Neurological Exam Neurological exam: Alert, CN II-XII Intact, Oriented x3, Reflexes Normal - Psychiatric Exam Psychiatric exam: Depressed - Skin Skin Exam: Dry Results - Vital Signs Recent Vital Signs: Last Vital Signs Temp 98.3 F 12/21/16 15:40 Pulse 88 12/21/16 17:10 Resp 11 L 12/21/16 17:10 BP 117/68 12/21/16 17:10 Pulse Ox 83 L 12/21/16 17:10 - Labs Result Diagrams: 12/21/16 09:41 12/21/16 09:54 Labs: Laboratory Results - last 24 hr 12/20/16 12/20/16 12/20/16 19:02 22:02 22:19 WBC RBC Hgb Hct MCV MCH MCHC RDW Plt Count MPV Neut % (Auto) Lymph % (Auto) [place] % (Auto) Eos % (Auto) Baso % (Auto) Neut # Lymph # [place] # Eos # Baso # APTT Sodium Potassium Chloride Carbon Dioxide Anion Gap BUN Creatinine Est GFR ( Amer) Est GFR (Non-Af Amer) POC Glucose (mg/dL) 151 H 24 L* 313 H Random Glucose Calcium Magnesium Total Bilirubin AST ALT Alkaline Phosphatase Total Creatine Kinase CK-MB (Mass) Troponin I, Quant NT-Pro-B Natriuret Pep Total Protein Albumin Globulin Albumin/Globulin Ratio Triglycerides Cholesterol LDL Cholesterol Direct HDL Cholesterol Procalcitonin TSH 3rd Generation 12/20/16 12/20/16 12/20/16 23:55 23:55 23:55 WBC RBC Hgb Hct MCV MCH MCHC RDW Plt Count MPV Neut % (Auto) Lymph % (Auto) [place] % (Auto) Eos % (Auto) Baso % (Auto) Neut # Lymph # [place] # Eos # Baso # APTT 182 H* D Sodium Potassium Chloride Carbon Dioxide Anion Gap BUN Creatinine Est GFR ( Amer) Est GFR (Non-Af Amer) POC Glucose (mg/dL) Random Glucose Calcium Magnesium Total Bilirubin AST ALT Alkaline Phosphatase Total Creatine Kinase 55 CK-MB (Mass) 6.79 H Troponin I, Quant 9.0900 H* NT-Pro-B Natriuret Pep [id number] H Total Protein Albumin Globulin Albumin/Globulin Ratio Triglycerides Cholesterol LDL Cholesterol Direct HDL Cholesterol Procalcitonin 0.38 TSH 3rd Generation 12/20/16 12/21/16 12/21/16 23:56 03:09 03:55 WBC RBC Hgb Hct MCV MCH MCHC RDW Plt Count MPV Neut % (Auto) Lymph % (Auto) [place] % (Auto) Eos % (Auto) Baso % (Auto) Neut # Lymph # [place] # Eos # Baso # APTT Sodium Potassium Chloride Carbon Dioxide Anion Gap BUN Creatinine Est GFR ( Amer) Est GFR (Non-Af Amer) POC Glucose (mg/dL) 160 H 42 L 142 H Random Glucose Calcium Magnesium Total Bilirubin AST ALT Alkaline Phosphatase Total Creatine Kinase CK-MB (Mass) Troponin I, Quant NT-Pro-B Natriuret Pep Total Protein Albumin Globulin Albumin/Globulin Ratio Triglycerides Cholesterol LDL Cholesterol Direct HDL Cholesterol Procalcitonin TSH 3rd Generation 12/21/16 12/21/16 12/21/16 05:40 06:41 09:41 WBC 13.3 H RBC 3.96 Hgb 12.0 Hct 37.3 MCV 94.2 MCH 30.4 MCHC 32.3 L RDW 16.4 H Plt Count 198 MPV 10.8 Neut % (Auto) 74.9 Lymph % (Auto) 11.2 L [place] % (Auto) 11.0 H Eos % (Auto) 1.8 Baso % (Auto) 1.1 Neut # 9.9 H Lymph # 1.5 [place] # 1.5 H Eos # 0.2 Baso # 0.2 APTT Sodium Potassium Chloride Carbon Dioxide Anion Gap BUN Creatinine Est GFR ( Amer) Est GFR (Non-Af Amer) POC Glucose (mg/dL) 73 104 Random Glucose Calcium Magnesium Total Bilirubin AST ALT Alkaline Phosphatase Total Creatine Kinase CK-MB (Mass) Troponin I, Quant NT-Pro-B Natriuret Pep Total Protein Albumin Globulin Albumin/Globulin Ratio Triglycerides Cholesterol LDL Cholesterol Direct HDL Cholesterol Procalcitonin TSH 3rd Generation 12/21/16 12/21/16 12/21/16 09:41 09:54 11:52 WBC RBC Hgb Hct MCV MCH MCHC RDW Plt Count MPV Neut % (Auto) Lymph % (Auto) [place] % (Auto) Eos % (Auto) Baso % (Auto) Neut # Lymph # [place] # Eos # Baso # APTT 37 H D Sodium 132 Potassium 4.2 Chloride 92 L Carbon Dioxide 24 Anion Gap 20 BUN 22 H Creatinine 4.2 H Est GFR ( Amer) 13 Est GFR (Non-Af Amer) 10 POC Glucose (mg/dL) 35 L* Random Glucose 80 Calcium 8.4 L Magnesium 2.0 Total Bilirubin 0.6 AST 37 H ALT 28 Alkaline Phosphatase 101 Total Creatine Kinase 32 CK-MB (Mass) 3.52 H Troponin I, Quant 6.5600 H* NT-Pro-B Natriuret Pep Total Protein 6.6 Albumin 3.4 L Globulin 3.2 Albumin/Globulin Ratio 1.1 Triglycerides 144 D Cholesterol 178 LDL Cholesterol Direct 93 HDL Cholesterol 46 Procalcitonin TSH 3rd Generation 1.09 12/21/16 12/21/16 12:07 16:58 WBC RBC Hgb Hct MCV MCH MCHC RDW Plt Count MPV Neut % (Auto) Lymph % (Auto) [place] % (Auto) Eos % (Auto) Baso % (Auto) Neut # Lymph # [place] # Eos # Baso # APTT 56 H D Sodium Potassium Chloride Carbon Dioxide Anion Gap BUN Creatinine Est GFR ( Amer) Est GFR (Non-Af Amer) POC Glucose (mg/dL) 203 H Random Glucose Calcium Magnesium Total Bilirubin AST ALT Alkaline Phosphatase Total Creatine Kinase CK-MB (Mass) Troponin I, Quant NT-Pro-B Natriuret Pep Total Protein Albumin Globulin Albumin/Globulin Ratio Triglycerides Cholesterol LDL Cholesterol Direct HDL Cholesterol Procalcitonin TSH 3rd Generation Assessment & Plan (1) Cellulitis of foot Status: Acute (2) Elevated troponin Status: Acute (3) End stage renal disease on dialysis Status: Acute (4) Nausea & vomiting Status: Acute (5) Uncontrolled type 2 diabetes mellitus with hyperglycemia Status: Chronic (6) Cellulitis Status: Acute (7) Diabetes Status: Acute (8) NSTEMI (non-ST elevated myocardial infarction) Status: Acute (9) Wound infection after surgery Status: Acute (10) CAD (coronary artery disease) Status: Chronic (11) CHF (congestive heart failure) Status: Chronic Priority: High (12) CKD (chronic kidney disease) stage 3, GFR 30-59 ml/min Status: Chronic (13) DM2 (diabetes mellitus, type 2) Status: Chronic Priority: Medium (14) Dyslipidemia Status: Chronic - Assessment and Plan (Free Text) Assessment: 71 yo F WITH HISTORY OF CKD on hemodialysis, CHF, HTN, CAD, DM2, anxiety, anemia of chronic disease, chronic low back pain who presented to the ED complaining of vomiting since yesterday. Denies chest pain, denies fevers chills , denies shortness of breath, denies dizziness. Also denies abdominal pain but c /o of diarrhea. Patient found to have elevated troponin in the emergency room. Patient missed her dialysis today because of vomiting. Patient was admitted to [facility] in September/October with elevated blood pressure and found to have elevated troponins. Patient was seen by cardiology and impression was demand ischemia. Echocardiogram during that admission showed normal ejection fraction with pulmonary hypertension. RECC- CONSIDER REMOVAL INFECTED AV FISTULA , CONT IV ANTIBIOTICS POOR PROGNOSIS FROM OUTSET
[2016-12-21] MEDS: Cefepime IV 1 gm in Dextrose 1 GM/50 ML BAG IVPB SCH (18:28)
[2016-12-22] MEDS ORDERED: Heparin25000 units/250ml 1/2NS 25,000 UNITS/250 ML BAG IV PRN (00:30)
[2016-12-22] MEDS: metroNIDAZOLE IV 250mg/50 ml 250 MG/50 ML BAG IVPB SCH ×3 (05:30→22:06)
[2016-12-22] MEDS: (Novolog) Insulin Aspart, Recombinant 100 u/ml 10 ml vial SC SCH ×5 (06:00→18:03)
[2016-12-22 06:09] LABS: BASO # 0.2 K/uL (0.0-0.2); BASO % 1.9 % (0.0-2.0); EOS # 0.4 K/uL (0.0-0.7); EOS % 4.6 % (0.0-4.0); HEMOGLOBIN 11.7 g/dL (11.0-16.0); LYMPH # 1.5 K/uL (1.0-4.3); LYMPH % 16.1 % (20.0-40.0); MEAN CELL VOLUME 94.4 fL (81.0-99.0); MEAN CORPUSCULAR HEMOGLOBIN 30.8 pg (27.0-31.0); MEAN CORPUSCULAR HGB CONC 32.6 g/dL (33.0-37.0); MEAN PLATELET VOLUME 11.1 fL (7.2-11.7); MONO # 1.4 K/uL (0.0-0.8); MONO % 14.8 % (0.0-10.0); NEUT % 62.6 % (50.0-75.0); RBC 3.8 Mil/uL (3.80-5.20); RED CELL DISTRIBUTION WIDTH 16.1 % (11.5-14.5); WHITE BLOOD COUNT 9.6 K/uL (4.8-10.8)
[2016-12-22 06:27] LABS: ALB/GLOB RATIO 1.2 (1.0-2.1); ALBUMIN 3.2 g/dL (3.5-5.0); ALT/SGPT 30 U/L (9-52); AST/SGOT 31 U/L (14-36); BLOOD UREA NITROGEN 15 mg/dL (7-17); CALCIUM 8.2 mg/dl (8.6-10.4); GFR AFRICAN-AMERICAN 14; GFR NON-AFRICAN AMERICAN 12; MAGNESIUM 2.1 mg/dL (1.6-2.3)
--- NOTE | 2016-12-22 08:00 | CP.PCM.PN ---
Subjective - Date & Time of Evaluation Date of Evaluation: 12/22/16 Time of Evaluation: 07:50 - Subjective Subjective: patient has no current chest pain. Objective - Vital Signs/Intake and Output Vital Signs (last 24 hours): Temp Pulse Resp BP Pulse Ox 99.2 F 87 20 166/56 H 100 12/22/16 04:00 12/22/16 07:01 12/22/16 07:01 12/22/16 07:01 12/22/16 07:01 Intake and Output: 12/22/16 12/22/16 06:59 18:59 Intake Total 545.0 8.2 Output Total 0 Balance 545.0 8.2 - Medications Medications: Current Medications Allopurinol (Zyloprim) 100 mg PO DAILY [facility] Last Admin: 12/21/16 10:45 Dose: 100 mg Aspirin (Aspirin Chewable) 81 mg PO DAILY [facility] Last Admin: 12/21/16 10:45 Dose: 81 mg [facility] Last Admin: 12/21/16 17:09 Dose: 667 mg Clopidogrel Bisulfate (Plavix) 75 mg PO DAILY [facility] Last Admin: 12/21/16 10:44 Dose: 75 mg Collagenase (Santyl) 0 gm TOP DAILY [facility] Last Admin: 12/21/16 10:47 Dose: 1 appl Escitalopram Oxalate (Lexapro) 10 mg PO DAILY [facility] Last Admin: 12/21/16 10:45 Dose: 10 mg Famotidine (Pepcid) 20 mg IVP DAILY [facility] Last Admin: 12/21/16 10:47 Dose: 20 mg Furosemide (Lasix) 40 mg PO DAILY [facility] Last Admin: 12/21/16 10:46 Dose: 40 mg Hydralazine HCl (Apresoline) 25 mg PO BID [facility] Last Admin: 12/21/16 17:09 Dose: 25 mg Hydromorphone HCl (Dilaudid) 0.5 mg IVP Q6H PRN PRN Reason: Pain, severe (8-10) Last Admin: 12/21/16 08:19 Dose: 0.5 mg Metronidazole (Flagyl) 250 mg in 50 mls @ 100 mls/hr IVPB Q8 [facility] Stop: 12/25/16 17:31 Last Admin: 12/22/16 05:30 Dose: 100 mls/hr Vancomycin HCl 1 gm/ Sodium (Chloride) 250 mls @ 166.7 mls/hr IVPB MWF [facility] Cefepime HCl (Maxipime Iv 1 Gm Premix) 1 gm in 50 mls @ 100 mls/hr IVPB Q24H [facility] Last Admin: 12/21/16 18:28 Dose: 100 mls/hr Heparin Sodium/Sodium Chloride (Heparin 34421 Units/250ml 1/2 Normal Saline) 25 ,000 units in 250 mls @ 8.89 mls/hr IV .Q24H PRN; Protocol; 14 UNITS/KG/HR PRN Reason: PROTOCOL Last Admin: 12/22/16 00:35 Dose: 13 units/kg/hr, 8.255 mls/hr Insulin Aspart (Novolog) 0 unit SC Q6H ELINA PRN Reason: Protocol Last Admin: 12/22/16 06:00 Dose: Not Given Losartan Potassium (Cozaar) 100 mg PO DAILY [facility] Last Admin: 12/21/16 10:45 Dose: 100 mg Metolazone (Zaroxolyn) 5 mg PO DAILY [facility] Last Admin: 12/21/16 10:46 Dose: 5 mg Ondansetron HCl (Zofran Inj) 4 mg IVP Q6H PRN PRN Reason: Nausea/Vomiting Last Admin: 12/21/16 17:19 Dose: 4 mg Rosuvastatin Calcium (Crestor) 10 mg PO HS [facility] Last Admin: 12/21/16 22:50 Dose: 10 mg Vitamin B Complex/Vitamin C (Berocca) 1 tab PO DAILY [facility] Last Admin: 12/21/16 10:44 Dose: 1 tab - Labs Labs: 12/22/16 06:03 12/22/16 06:02 PT 10.9 SECONDS (9.7-12.2) 12/20/16 16:07 INR 1.0 12/20/16 16:07 APTT 77 SECONDS (21-34) H D 12/22/16 06:03 - Constitutional Appears: Non-toxic - Head Exam Head Exam: NORMAL INSPECTION - Eye Exam Eye Exam: Normal appearance - ENT Exam ENT Exam: Mucous Membranes Moist - Neck Exam Neck Exam: Full ROM - Respiratory Exam Respiratory Exam: NORMAL BREATHING PATTERN - Cardiovascular Exam Cardiovascular Exam: REGULAR RHYTHM - GI/Abdominal Exam GI & Abdominal Exam: Normal Bowel Sounds - Rectal Exam Rectal Exam: Deferred - Extremities Exam Extremities Exam: Pedal Edema - Back Exam Back Exam: NORMAL INSPECTION - Neurological Exam Neurological Exam: Alert - Psychiatric Exam Psychiatric exam: Normal Affect - Skin Skin Exam: Normal Color Assessment and Plan (1) NSTEMI (non-ST elevated myocardial infarction) Assessment & Plan: check troponin today. will plan for cardiac cath tomorrow. Status: Acute (2) DM2 (diabetes mellitus, type 2) Assessment & Plan: glucose control Status: Chronic (3) Hypertension Assessment & Plan: blood pressure control Status: Chronic
[2016-12-22 08:03] LABS: CK-MB 2.48 ng/mL (0.0-3.38)
[2016-12-22] MEDS: Vitamin B Complex/Vitamin C Tab PO SCH (09:23)
[2016-12-22] MEDS: metOLazone 5 MG TAB PO SCH (09:24)
[2016-12-22] MEDS: Collagenase 250 Units/gm Ointment(30 gm) TOP SCH (09:27)
--- NOTE | 2016-12-22 11:55 | CP.CCUPN ---
CCU Subjective - Physician Review Subjective (Free Text): Patient is seen and examined at bedside in the morning. Patient reports feeling okay today and has no complaints except discomfort in her left foot. Patient denies chest pain, shortness of breath, abdominal pain, nausea, vomiting, diarrhea, and constipation. 12/22/16 15:40 CCU Objective - Vital Signs / Intake & Output Vital Signs (Last 4 hours): Vital Signs Temp Pulse Resp BP Pulse Ox 12/22/16 11:02 83 13 128/36 L 99 12/22/16 11:00 83 13 99 12/22/16 10:04 95 H 17 136/47 L 94 L 12/22/16 10:00 97 H 13 96 12/22/16 09:24 151/54 H 12/22/16 09:05 96 H 21 151/54 H 96 12/22/16 09:01 95 H 13 139/106 H 100 12/22/16 09:00 94 H 22 98 12/22/16 08:01 87 23 146/55 L 100 12/22/16 08:00 98.5 F 87 23 100 Intake and Output (Last 8hrs): Intake & Output 12/21/16 12/22/16 12/22/16 22:59 06:59 14:59 Intake Total 445.2 234.3 591.0 Output Total 0 Balance 445.2 234.3 591.0 Weight 141 lb 1.533 oz Intake: Intake, IV Amount 205.2 114.3 291.0 Right Forearm 106.9 64.3 41.0 Right Forearm #2 50 50 250 Right Hand 48.3 Oral 240 120 300 Output: Urine 0 Urine, Voided 0 Other: # Bowel Movements 1 1 1 - Physical Exam Head: Positive for: Atraumatic, Normocephalic Extroacular Muscles: Positive for: EOMI Conjunctiva: Positive for: Normal Mouth: Positive for: Moist Mucous Membranes Neck: Positive for: Normal Range of Motion Respiratory/Chest: Positive for: Clear to Auscultation. Negative for: Wheezes, Rhonchi Cardiovascular: Positive for: Regular Rate and Rhythm, Normal S1, S2 Abdomen: Positive for: Normal Bowel Sounds. Negative for: Tenderness Upper Extremity: Positive for: Normal Inspection. Negative for: Edema Lower Extremity: Positive for: Normal Inspection. Negative for: Edema Skin: Positive for: Warm, Dry, Other (stage 2 ulcer on left heel, dry) Psychiatric: Positive for: Alert, Oriented x 3, Normal Affect - Medications Active Medications: Active Medications Generic Name Dose Route Start Last Admin Trade Name Lincolnq PRN Reason Stop Dose Admin Aspirin 81 mg 12/21/16 10:00 12/22/16 09:24 Aspirin Chewable PO 81 mg DAILY ELINA Administration Calcium Acetate 667 mg 12/21/16 08:00 12/22/16 09:25 Phoslo PO 667 mg BIDCC ELINA Administration Clopidogrel Bisulfate 75 mg 12/20/16 18:50 12/22/16 09:23 Plavix PO 75 mg DAILY ELINA Administration Collagenase 0 gm 12/21/16 10:00 12/22/16 09:27 Santyl TOP 1 appl DAILY ELINA Administration Escitalopram Oxalate 10 mg 12/21/16 10:00 12/22/16 09:24 Lexapro PO 10 mg DAILY ELINA Administration Famotidine 20 mg 12/20/16 18:00 12/22/16 09:22 Pepcid IVP 20 mg DAILY ELINA Administration Furosemide 40 mg 12/21/16 10:00 12/22/16 09:24 Lasix PO 40 mg DAILY ELINA Administration Hydralazine HCl 25 mg 12/21/16 10:00 12/22/16 09:25 Apresoline PO 25 mg BID ELINA Administration Hydromorphone HCl 0.5 mg 12/21/16 08:04 12/21/16 08:19 Dilaudid IVP 0.5 mg Q6H PRN Administration Pain, severe (8-10) Metronidazole 250 mg in 50 mls @ 100 mls/hr 12/21/16 14:00 12/22/16 05:30 Flagyl IVPB 12/25/16 17:31 100 mls/hr Q8 ELINA Administration Vancomycin HCl 1 gm/ Sodium 250 mls @ 166.7 mls/hr 12/22/16 09:00 12/22/16 09 :17 Chloride IVPB 166.7 mls/hr MWF ELINA Administration Cefepime HCl 1 gm in 50 mls @ 100 mls/hr 12/21/16 17:45 12/21/16 18:28 Maxipime Iv 1 Gm Premix IVPB 100 mls/hr Q24H ELINA Administration Heparin Sodium/Sodium Chloride 25,000 units in 250 mls @ 8.89 mls/hr 12/22/16 00:30 12/22/16 00:35 Heparin 52639 Units/250ml 1/2 Normal Saline IV 13 units/kg/hr .Q24H PRN 8.255 mls/hr PROTOCOL Administration Protocol 14 UNITS/KG/HR Insulin Aspart 0 unit 12/20/16 18:45 12/22/16 06:00 Novolog SC Not Given Q6H ELINA Protocol Losartan Potassium 100 mg 12/21/16 09:10 12/22/16 09:24 Cozaar PO 100 mg DAILY ELINA Administration Metolazone 5 mg 12/21/16 10:00 12/22/16 09:24 Zaroxolyn PO 5 mg DAILY ELINA Administration Ondansetron HCl 4 mg 12/20/16 17:19 12/21/16 17:19 Zofran Inj IVP 4 mg Q6H PRN Administration Nausea/Vomiting Rosuvastatin Calcium 10 mg 12/20/16 22:00 12/21/16 22:50 Crestor PO 10 mg HS ELINA Administration Vitamin B Complex/Vitamin C 1 tab 12/21/16 10:00 12/22/16 09:23 Berocca PO 1 tab DAILY ELINA Administration - Patient Studies Lab Studies: Microbiology Studies 12/20/16 16:20 Blood Culture - Preliminary Blood-Venous NO GROWTH AFTER 24 HOURS Lab Studies 12/22/16 12/22/16 12/22/16 Range/Units 11:15 06:03 06:03 WBC 9.6 (4.8-10.8) K/uL RBC 3.80 (3.80-5.20) Mil/uL Hgb 11.7 (11.0-16.0) g/dL Hct 35.9 (34.0-47.0) % MCV 94.4 (81.0-99.0) fL MCH 30.8 (27.0-31.0) pg MCHC 32.6 L (33.0-37.0) g/dL RDW 16.1 H (11.5-14.5) % Plt Count 159 (130-400) K/uL MPV 11.1 (7.2-11.7) fL Neut % (Auto) 62.6 (50.0-75.0) % Lymph % (Auto) 16.1 L (20.0-40.0) % Nye % (Auto) 14.8 H (0.0-10.0) % Eos % (Auto) 4.6 H (0.0-4.0) % Baso % (Auto) 1.9 (0.0-2.0) % Neut # 6.0 (1.8-7.0) K/uL Lymph # 1.5 (1.0-4.3) K/uL Nye # 1.4 H (0.0-0.8) K/uL Eos # 0.4 (0.0-0.7) K/uL Baso # 0.2 (0.0-0.2) K/uL APTT 77 H D (21-34) SECONDS Sodium (132-148) mmol/L Potassium (3.6-5.2) mmol/L Chloride (98-107) mmol/L Carbon Dioxide (22-30) mmol/L Anion Gap (10-20) BUN (7-17) mg/dL Creatinine (0.7-1.2) MG/DL Est GFR ( Amer) Est GFR (Non-Af Amer) POC Glucose (mg/dL) 280 H (65-110) mg/dL Random Glucose (65-105) mg/dL Hemoglobin A1c (4.2-6.5) % Calcium (8.6-10.4) mg/dl Phosphorus (2.5-4.5) mg/dL Magnesium (1.6-2.3) mg/dL Total Bilirubin (0.2-1.3) mg/dL AST (14-36) U/L ALT (9-52) U/L Alkaline Phosphatase (38-126) U/L Total Creatine Kinase (30-135) U/L CK-MB (Mass) (0.0-3.38) ng/mL Troponin I, Quant (0.00-0.120) ng/mL Total Protein (6.3-8.3) g/dL Albumin (3.5-5.0) g/dL Globulin (2.2-3.9) gm/dL Albumin/Globulin Ratio (1.0-2.1) 12/22/16 12/22/16 12/21/16 Range/Units 06:02 05:52 23:34 WBC (4.8-10.8) K/uL RBC (3.80-5.20) Mil/uL Hgb (11.0-16.0) g/dL Hct (34.0-47.0) % MCV (81.0-99.0) fL MCH (27.0-31.0) pg MCHC (33.0-37.0) g/dL RDW (11.5-14.5) % Plt Count (130-400) K/uL MPV (7.2-11.7) fL Neut % (Auto) (50.0-75.0) % Lymph % (Auto) (20.0-40.0) % Nye % (Auto) (0.0-10.0) % Eos % (Auto) (0.0-4.0) % Baso % (Auto) (0.0-2.0) % Neut # (1.8-7.0) K/uL Lymph # (1.0-4.3) K/uL Nye # (0.0-0.8) K/uL Eos # (0.0-0.7) K/uL Baso # (0.0-0.2) K/uL APTT (21-34) SECONDS Sodium 135 (132-148) mmol/L Potassium 4.1 (3.6-5.2) mmol/L Chloride 93 L (98-107) mmol/L Carbon Dioxide 29 (22-30) mmol/L Anion Gap 17 (10-20) BUN 15 (7-17) mg/dL Creatinine 3.8 H (0.7-1.2) MG/DL Est GFR ( Amer) 14 Est GFR (Non-Af Amer) 12 POC Glucose (mg/dL) 108 191 H (65-110) mg/dL Random Glucose 93 (65-105) mg/dL Hemoglobin A1c (4.2-6.5) % Calcium 8.2 L (8.6-10.4) mg/dl Phosphorus 4.9 H (2.5-4.5) mg/dL Magnesium 2.1 (1.6-2.3) mg/dL Total Bilirubin 0.2 (0.2-1.3) mg/dL AST 31 (14-36) U/L ALT 30 (9-52) U/L Alkaline Phosphatase 85 (38-126) U/L Total Creatine Kinase < 20 L (30-135) U/L CK-MB (Mass) 2.48 (0.0-3.38) ng/mL Troponin I, Quant 4.7400 H* (0.00-0.120) ng/mL Total Protein 5.7 L (6.3-8.3) g/dL Albumin 3.2 L (3.5-5.0) g/dL Globulin 2.6 (2.2-3.9) gm/dL Albumin/Globulin Ratio 1.2 (1.0-2.1) 12/21/16 12/21/16 12/21/16 Range/Units 23:07 17:39 16:58 WBC (4.8-10.8) K/uL RBC (3.80-5.20) Mil/uL Hgb (11.0-16.0) g/dL Hct (34.0-47.0) % MCV (81.0-99.0) fL MCH (27.0-31.0) pg MCHC (33.0-37.0) g/dL RDW (11.5-14.5) % Plt Count (130-400) K/uL MPV (7.2-11.7) fL Neut % (Auto) (50.0-75.0) % Lymph % (Auto) (20.0-40.0) % Nye % (Auto) (0.0-10.0) % Eos % (Auto) (0.0-4.0) % Baso % (Auto) (0.0-2.0) % Neut # (1.8-7.0) K/uL Lymph # (1.0-4.3) K/uL Nye # (0.0-0.8) K/uL Eos # (0.0-0.7) K/uL Baso # (0.0-0.2) K/uL APTT 40 H D 56 H D (21-34) SECONDS Sodium (132-148) mmol/L Potassium (3.6-5.2) mmol/L Chloride (98-107) mmol/L Carbon Dioxide (22-30) mmol/L Anion Gap (10-20) BUN (7-17) mg/dL Creatinine (0.7-1.2) MG/DL Est GFR ( Amer) Est GFR (Non-Af Amer) POC Glucose (mg/dL) 99 (65-110) mg/dL Random Glucose (65-105) mg/dL Hemoglobin A1c (4.2-6.5) % Calcium (8.6-10.4) mg/dl Phosphorus (2.5-4.5) mg/dL Magnesium (1.6-2.3) mg/dL Total Bilirubin (0.2-1.3) mg/dL AST (14-36) U/L ALT (9-52) U/L Alkaline Phosphatase (38-126) U/L Total Creatine Kinase (30-135) U/L CK-MB (Mass) (0.0-3.38) ng/mL Troponin I, Quant (0.00-0.120) ng/mL Total Protein (6.3-8.3) g/dL Albumin (3.5-5.0) g/dL Globulin (2.2-3.9) gm/dL Albumin/Globulin Ratio (1.0-2.1) 12/21/16 12/21/16 12/21/16 Range/Units 12:07 11:52 09:54 WBC (4.8-10.8) K/uL RBC (3.80-5.20) Mil/uL Hgb (11.0-16.0) g/dL Hct (34.0-47.0) % MCV (81.0-99.0) fL MCH (27.0-31.0) pg MCHC (33.0-37.0) g/dL RDW (11.5-14.5) % Plt Count (130-400) K/uL MPV (7.2-11.7) fL Neut % (Auto) (50.0-75.0) % Lymph % (Auto) (20.0-40.0) % Nye % (Auto) (0.0-10.0) % Eos % (Auto) (0.0-4.0) % Baso % (Auto) (0.0-2.0) % Neut # (1.8-7.0) K/uL Lymph # (1.0-4.3) K/uL Nye # (0.0-0.8) K/uL Eos # (0.0-0.7) K/uL Baso # (0.0-0.2) K/uL APTT (21-34) SECONDS Sodium (132-148) mmol/L Potassium (3.6-5.2) mmol/L Chloride (98-107) mmol/L Carbon Dioxide (22-30) mmol/L Anion Gap (10-20) BUN (7-17) mg/dL Creatinine (0.7-1.2) MG/DL Est GFR ( Amer) Est GFR (Non-Af Amer) POC Glucose (mg/dL) 203 H 35 L* (65-110) mg/dL Random Glucose (65-105) mg/dL Hemoglobin A1c 7.0 H D (4.2-6.5) % Calcium (8.6-10.4) mg/dl Phosphorus (2.5-4.5) mg/dL Magnesium (1.6-2.3) mg/dL Total Bilirubin (0.2-1.3) mg/dL AST (14-36) U/L ALT (9-52) U/L Alkaline Phosphatase (38-126) U/L Total Creatine Kinase (30-135) U/L CK-MB (Mass) (0.0-3.38) ng/mL Troponin I, Quant (0.00-0.120) ng/mL Total Protein (6.3-8.3) g/dL Albumin (3.5-5.0) g/dL Globulin (2.2-3.9) gm/dL Albumin/Globulin Ratio (1.0-2.1) 12/21/16 Range/Units 09:54 WBC (4.8-10.8) K/uL RBC (3.80-5.20) Mil/uL Hgb (11.0-16.0) g/dL Hct (34.0-47.0) % MCV (81.0-99.0) fL MCH (27.0-31.0) pg MCHC (33.0-37.0) g/dL RDW (11.5-14.5) % Plt Count (130-400) K/uL MPV (7.2-11.7) fL Neut % (Auto) (50.0-75.0) % Lymph % (Auto) (20.0-40.0) % Nye % (Auto) (0.0-10.0) % Eos % (Auto) (0.0-4.0) % Baso % (Auto) (0.0-2.0) % Neut # (1.8-7.0) K/uL Lymph # (1.0-4.3) K/uL Nye # (0.0-0.8) K/uL Eos # (0.0-0.7) K/uL Baso # (0.0-0.2) K/uL APTT (21-34) SECONDS Sodium 132 (132-148) mmol/L Potassium 4.2 (3.6-5.2) mmol/L Chloride 92 L (98-107) mmol/L Carbon Dioxide 24 (22-30) mmol/L Anion Gap 20 (10-20) BUN 22 H (7-17) mg/dL Creatinine 4.2 H (0.7-1.2) MG/DL Est GFR ( Amer) 13 Est GFR (Non-Af Amer) 10 POC Glucose (mg/dL) (65-110) mg/dL Random Glucose 80 (65-105) mg/dL Hemoglobin A1c (4.2-6.5) % Calcium 8.4 L (8.6-10.4) mg/dl Phosphorus (2.5-4.5) mg/dL Magnesium (1.6-2.3) mg/dL Total Bilirubin 0.6 (0.2-1.3) mg/dL AST 37 H (14-36) U/L ALT 28 (9-52) U/L Alkaline Phosphatase 101 (38-126) U/L Total Creatine Kinase (30-135) U/L CK-MB (Mass) (0.0-3.38) ng/mL Troponin I, Quant (0.00-0.120) ng/mL Total Protein 6.6 (6.3-8.3) g/dL Albumin 3.4 L (3.5-5.0) g/dL Globulin 3.2 (2.2-3.9) gm/dL Albumin/Globulin Ratio 1.1 (1.0-2.1) Laboratory Results - last 24 hr 12/21/16 12/21/16 12/21/16 09:54 09:54 11:52 WBC RBC Hgb Hct MCV MCH MCHC RDW Plt Count MPV Neut % (Auto) Lymph % (Auto) Nye % (Auto) Eos % (Auto) Baso % (Auto) Neut # Lymph # Nye # Eos # Baso # APTT Sodium 132 Potassium 4.2 Chloride 92 L Carbon Dioxide 24 Anion Gap 20 BUN 22 H Creatinine 4.2 H Est GFR ( Amer) 13 Est GFR (Non-Af Amer) 10 POC Glucose (mg/dL) 35 L* Random Glucose 80 Hemoglobin A1c 7.0 H D Calcium 8.4 L Phosphorus Magnesium Total Bilirubin 0.6 AST 37 H ALT 28 Alkaline Phosphatase 101 Total Creatine Kinase CK-MB (Mass) Troponin I, Quant Total Protein 6.6 Albumin 3.4 L Globulin 3.2 Albumin/Globulin Ratio 1.1 12/21/16 12/21/16 12/21/16 12:07 16:58 17:39 WBC RBC Hgb Hct MCV MCH MCHC RDW Plt Count MPV Neut % (Auto) Lymph % (Auto) Nye % (Auto) Eos % (Auto) Baso % (Auto) Neut # Lymph # Nye # Eos # Baso # APTT 56 H D Sodium Potassium Chloride Carbon Dioxide Anion Gap BUN Creatinine Est GFR ( Amer) Est GFR (Non-Af Amer) POC Glucose (mg/dL) 203 H 99 Random Glucose Hemoglobin A1c Calcium Phosphorus Magnesium Total Bilirubin AST ALT Alkaline Phosphatase Total Creatine Kinase CK-MB (Mass) Troponin I, Quant Total Protein Albumin Globulin Albumin/Globulin Ratio 12/21/16 12/21/16 12/22/16 23:07 23:34 05:52 WBC RBC Hgb Hct MCV MCH MCHC RDW Plt Count MPV Neut % (Auto) Lymph % (Auto) Nye % (Auto) Eos % (Auto) Baso % (Auto) Neut # Lymph # Nye # Eos # Baso # APTT 40 H D Sodium Potassium Chloride Carbon Dioxide Anion Gap BUN Creatinine Est GFR ( Amer) Est GFR (Non-Af Amer) POC Glucose (mg/dL) 191 H 108 Random Glucose Hemoglobin A1c Calcium Phosphorus Magnesium Total Bilirubin AST ALT Alkaline Phosphatase Total Creatine Kinase CK-MB (Mass) Troponin I, Quant Total Protein Albumin Globulin Albumin/Globulin Ratio 12/22/16 12/22/16 12/22/16 06:02 06:03 06:03 WBC 9.6 RBC 3.80 Hgb 11.7 Hct 35.9 MCV 94.4 MCH 30.8 MCHC 32.6 L RDW 16.1 H Plt Count 159 MPV 11.1 Neut % (Auto) 62.6 Lymph % (Auto) 16.1 L Nye % (Auto) 14.8 H Eos % (Auto) 4.6 H Baso % (Auto) 1.9 Neut # 6.0 Lymph # 1.5 Nye # 1.4 H Eos # 0.4 Baso # 0.2 APTT 77 H D Sodium 135 Potassium 4.1 Chloride 93 L Carbon Dioxide 29 Anion Gap 17 BUN 15 Creatinine 3.8 H Est GFR ( Amer) 14 Est GFR (Non-Af Amer) 12 POC Glucose (mg/dL) Random Glucose 93 Hemoglobin A1c Calcium 8.2 L Phosphorus 4.9 H Magnesium 2.1 Total Bilirubin 0.2 AST 31 ALT 30 Alkaline Phosphatase 85 Total Creatine Kinase < 20 L CK-MB (Mass) 2.48 Troponin I, Quant 4.7400 H* Total Protein 5.7 L Albumin 3.2 L Globulin 2.6 Albumin/Globulin Ratio 1.2 12/22/16 11:15 WBC RBC Hgb Hct MCV MCH MCHC RDW Plt Count MPV Neut % (Auto) Lymph % (Auto) Nye % (Auto) Eos % (Auto) Baso % (Auto) Neut # Lymph # Nye # Eos # Baso # APTT Sodium Potassium Chloride Carbon Dioxide Anion Gap BUN Creatinine Est GFR ( Amer) Est GFR (Non-Af Amer) POC Glucose (mg/dL) 280 H Random Glucose Hemoglobin A1c Calcium Phosphorus Magnesium Total Bilirubin AST ALT Alkaline Phosphatase Total Creatine Kinase CK-MB (Mass) Troponin I, Quant Total Protein Albumin Globulin Albumin/Globulin Ratio Fingerstick Blood Sugar Results: 108 Review of Systems - Constitutional Constitutional: absent: Fever - Cardiovascular Cardiovascular: absent: Chest Pain, Dyspnea, Palpitations - Respiratory Respiratory: absent: Dyspnea - Gastrointestinal Gastrointestinal: absent: Abdominal Pain, Constipation, Diarrhea - Integumentary Integumentary: Skin Ulcer (left heel) - Neurological Neurological: absent: Dizziness Critical Care Progress Note - Nutrition Nutrition: Nutrition Category Date Time Status Renal Diet [DIET] Diets 12/21/16 Breakfast Active Assessment/Plan - Assessment and Plan (Free Text) Assessment: 71 year old female with medical history of ESRD, HTN, CHF, DM, anemia, and back pain, presents with intractable vomiting. Neuro: - Alert, oriented x3 Pulm: - Chest Xray: Persistent moderate cardiomegaly, worsening pulmonary venous congestion and left pleural effusion. CV: - Troponin x 3: 9.0900, 6.5600, 4.7400 - Chest Xray: Persistent moderate cardiomegaly, worsening pulmonary venous congestion and left pleural effusion. - Echo from 10/23/16: small to moderate circumferential pericardial effusions; Elevated LA pressure; trace aortic regurg; mild mitral regurg; mild to moderate tricuspid regurg; RV systolic pressure is estimated at -44mmHg compatible with mild pulmonary hypertension. - Cardiology consulted, Dr. Law. - Cardiac cath scheduled for tomorrow, 12/23/16 Endo: - Diabetes - Accuchecks - HgbA1c: 7.0 Heme: - Monitor H/H GI: - Nausea and vomiting: Zofran - Abdomen/Pelvic CT: B/L pleural effusions with left basilar consolidation; degenerative disease within thoracic spine. Renal: - ESRD, Dialysis TTS - Fire Loss Prevention Engineer consulted, Dr. Ambrose, help appreciated - Monitor BUN/Cr Skin: - Left foot heel ulcer - Foot Xray: no acute fracture or bone destruction; moderate dorsal soft tissue swelling, may represent cellulitis - Wound care consult - Wound culture: f/u - Podiatry consulted: Dr. Stevens, help appreciated. ID: - WBC: 13.3 on 12/21; 9.6 on 12/22 - Blood culture: negative after 24hr - Flagyl 500mg IV Q8 and Cefepime 1gm IV - Vanco 1gm IV MWF - Wound culture of left heel ulcer - Wound care consulted Prophylaxis - DVT: Plavix 75mg PO daily, ASA 81, Heparin drip - GI: Pepcid 20mg IV Daily
--- NOTE | 2016-12-22 13:18 | CP.PCM.PN ---
Subjective - Date & Time of Evaluation Date of Evaluation: 12/22/16 Time of Evaluation: 08:00 - Subjective Subjective: improving alert responsive left arm same cont iv rx cultures neg to discuss with vascular Objective - Vital Signs/Intake and Output Vital Signs (last 24 hours): Temp Pulse Resp BP Pulse Ox 98.5 F 83 13 128/36 L 99 12/22/16 08:00 12/22/16 11:02 12/22/16 11:02 12/22/16 11:02 12/22/16 11:02 Intake and Output: 12/22/16 12/22/16 06:59 18:59 Intake Total 545.0 591.0 Output Total 0 Balance 545.0 591.0 - Medications Medications: Current Medications Aspirin (Aspirin Chewable) 81 mg PO DAILY [facility] Last Admin: 12/22/16 09:24 Dose: 81 mg [facility] Admin: 12/22/16 09:25 Dose: 667 mg Clopidogrel Bisulfate (Plavix) 75 mg PO DAILY [facility] Last Admin: 12/22/16 09:23 Dose: 75 mg Collagenase (Santyl) 0 gm TOP DAILY [facility] Last Admin: 12/22/16 09:27 Dose: 1 appl Escitalopram Oxalate (Lexapro) 10 mg PO DAILY [facility] Last Admin: 12/22/16 09:24 Dose: 10 mg Famotidine (Pepcid) 20 mg IVP DAILY [facility] Last Admin: 12/22/16 09:22 Dose: 20 mg Furosemide (Lasix) 40 mg PO DAILY [facility] Last Admin: 12/22/16 09:24 Dose: 40 mg Hydralazine HCl (Apresoline) 25 mg PO BID [facility] Last Admin: 12/22/16 09:25 Dose: 25 mg Hydromorphone HCl (Dilaudid) 0.5 mg IVP Q6H PRN PRN Reason: Pain, severe (8-10) Last Admin: 12/21/16 08:19 Dose: 0.5 mg Metronidazole (Flagyl) 250 mg in 50 mls @ 100 mls/hr IVPB Q8 [facility] Stop: 12/25/16 17:31 Last Admin: 12/22/16 05:30 Dose: 100 mls/hr Vancomycin HCl 1 gm/ Sodium (Chloride) 250 mls @ 166.7 mls/hr IVPB MWF [facility] Last Admin: 12/22/16 09:17 Dose: 166.7 mls/hr Cefepime HCl (Maxipime Iv 1 Gm Premix) 1 gm in 50 mls @ 100 mls/hr IVPB Q24H [facility] Last Admin: 12/21/16 18:28 Dose: 100 mls/hr Heparin Sodium/Sodium Chloride (Heparin 55777 Units/250ml 1/2 Normal Saline) 25 ,000 units in 250 mls @ 8.89 mls/hr IV .Q24H PRN; Protocol; 14 UNITS/KG/HR PRN Reason: PROTOCOL Last Admin: 12/22/16 00:35 Dose: 13 units/kg/hr, 8.255 mls/hr Insulin Aspart (Novolog) 0 unit SC Q6H [facility] PRN Reason: Protocol Last Admin: 12/22/16 06:00 Dose: Not Given Losartan Potassium (Cozaar) 100 mg PO DAILY [facility] Last Admin: 12/22/16 09:24 Dose: 100 mg Metolazone (Zaroxolyn) 5 mg PO DAILY [facility] Last Admin: 12/22/16 09:24 Dose: 5 mg Ondansetron HCl (Zofran Inj) 4 mg IVP Q6H PRN PRN Reason: Nausea/Vomiting Last Admin: 12/21/16 17:19 Dose: 4 mg Rosuvastatin Calcium (Crestor) 10 mg PO HS [facility] Last Admin: 12/21/16 22:50 Dose: 10 mg Vitamin B Complex/Vitamin C (Berocca) 1 tab PO DAILY [facility] Last Admin: 12/22/16 09:23 Dose: 1 tab - Labs Labs: 12/22/16 06:03 12/22/16 06:02 PT 10.9 SECONDS (9.7-12.2) 12/20/16 16:07 INR 1.0 12/20/16 16:07 APTT 77 SECONDS (21-34) H D 12/22/16 06:03 - Constitutional Appears: Non-toxic - Head Exam Head Exam: NORMOCEPHALIC - Eye Exam Eye Exam: PERRL - ENT Exam ENT Exam: Mucous Membranes Dry - Neck Exam Neck Exam: absent: Lymphadenopathy - Respiratory Exam Respiratory Exam: Decreased Breath Sounds - Cardiovascular Exam Cardiovascular Exam: REGULAR RHYTHM, +S1, +S2 - GI/Abdominal Exam GI & Abdominal Exam: Distended, Soft - Rectal Exam Rectal Exam: Deferred - Exam Exam: NORMAL INSPECTION - Extremities Exam Extremities Exam: absent: Pedal Edema - Back Exam Back Exam: absent: CVA tenderness (L), CVA tenderness (R) - Neurological Exam Neurological Exam: Alert, Awake, Oriented x3 - Psychiatric Exam Psychiatric exam: Normal Mood - Skin Skin Exam: Dry Assessment and Plan (1) Cellulitis of foot Status: Acute (2) Elevated troponin Status: Acute (3) End stage renal disease on dialysis Status: Acute (4) Nausea & vomiting Status: Acute (5) Uncontrolled type 2 diabetes mellitus with hyperglycemia Status: Chronic (6) Cellulitis Status: Acute (7) Diabetes Status: Acute (8) NSTEMI (non-ST elevated myocardial infarction) Status: Acute (9) Wound infection after surgery Status: Acute (10) CAD (coronary artery disease) Status: Chronic (11) CHF (congestive heart failure) Status: Chronic (12) CKD (chronic kidney disease) stage 3, GFR 30-59 ml/min Status: Chronic (13) DM2 (diabetes mellitus, type 2) Status: Chronic (14) Dyslipidemia Status: Chronic
--- NOTE | 2016-12-22 13:18 | CP.PCM.PN ---
Subjective - Date & Time of Evaluation Date of Evaluation: 12/22/16 Time of Evaluation: 13:15 - Subjective Subjective: Medical Attending Note: Follow-up: Nonstemi, hypertensive emergency, Esrd, leukocytosis, infected Av graft, heel ulcer, hx of diabetes and hypertension Patient seen and examined at bedside. Patient denies chest pain, denies shortness of breathe, denies cough, denies abdominal pain, denies nausea, denies vomitting, denies constipation. I spoke with Dr. Law this morning, he is planning for cardiac cath tomorrow. Objective - Vital Signs/Intake and Output Vital Signs (last 24 hours): Temp Pulse Resp BP Pulse Ox 98.5 F 83 13 128/36 L 99 12/22/16 08:00 12/22/16 11:02 12/22/16 11:02 12/22/16 11:02 12/22/16 11:02 Intake and Output: 12/22/16 12/22/16 06:59 18:59 Intake Total 545.0 591.0 Output Total 0 Balance 545.0 591.0 - Medications Medications: Current Medications Aspirin (Aspirin Chewable) 81 mg PO DAILY [facility] Last Admin: 12/22/16 09:24 Dose: 81 mg Calcium Acetate (Phoslo) 667 [facility] Last Admin: 12/22/16 09:25 Dose: 667 mg Clopidogrel Bisulfate (Plavix) 75 mg PO DAILY [facility] Last Admin: 12/22/16 09:23 Dose: 75 mg Collagenase (Santyl) 0 gm TOP DAILY [facility] Last Admin: 12/22/16 09:27 Dose: 1 appl Escitalopram Oxalate (Lexapro) 10 mg PO DAILY [facility] Last Admin: 12/22/16 09:24 Dose: 10 mg Famotidine (Pepcid) 20 mg IVP DAILY [facility] Last Admin: 12/22/16 09:22 Dose: 20 mg Furosemide (Lasix) 40 mg PO DAILY [facility] Last Admin: 12/22/16 09:24 Dose: 40 mg Hydralazine HCl (Apresoline) 25 mg PO BID [facility] Last Admin: 12/22/16 09:25 Dose: 25 mg Hydromorphone HCl (Dilaudid) 0.5 mg IVP Q6H PRN PRN Reason: Pain, severe (8-10) Last Admin: 12/21/16 08:19 Dose: 0.5 mg Metronidazole (Flagyl) 250 mg in 50 mls @ 100 mls/hr IVPB Q8 [facility] Stop: 12/25/16 17:31 Last Admin: 12/22/16 05:30 Dose: 100 mls/hr Vancomycin HCl 1 gm/ Sodium (Chloride) 250 mls @ 166.7 mls/hr IVPB MWF [facility] Last Admin: 12/22/16 09:17 Dose: 166.7 mls/hr Cefepime HCl (Maxipime Iv 1 Gm Premix) 1 gm in 50 mls @ 100 mls/hr IVPB Q24H [facility] Last Admin: 12/21/16 18:28 Dose: 100 mls/hr Heparin Sodium/Sodium Chloride (Heparin 77212 Units/250ml 1/2 Normal Saline) 25 ,000 units in 250 mls @ 8.89 mls/hr IV .Q24H PRN; Protocol; 14 UNITS/KG/HR PRN Reason: PROTOCOL Last Admin: 12/22/16 00:35 Dose: 13 units/kg/hr, 8.255 mls/hr Insulin Aspart (Novolog) 0 unit SC Q6H [facility] PRN Reason: Protocol Last Admin: 12/22/16 06:00 Dose: Not Given Losartan Potassium (Cozaar) 100 mg PO DAILY [facility] Last Admin: 12/22/16 09:24 Dose: 100 mg Metolazone (Zaroxolyn) 5 mg PO DAILY [facility] Last Admin: 12/22/16 09:24 Dose: 5 mg Ondansetron HCl (Zofran Inj) 4 mg IVP Q6H PRN PRN Reason: Nausea/Vomiting Last Admin: 12/21/16 17:19 Dose: 4 mg Rosuvastatin Calcium (Crestor) 10 mg PO HS [facility] Last Admin: 12/21/16 22:50 Dose: 10 mg Vitamin B Complex/Vitamin C (Berocca) 1 tab PO DAILY [facility] Last Admin: 12/22/16 09:23 Dose: 1 tab - Labs Labs: 12/22/16 06:03 12/22/16 06:02 PT 10.9 SECONDS (9.7-12.2) 12/20/16 16:07 INR 1.0 12/20/16 16:07 APTT 77 SECONDS (21-34) H D 12/22/16 06:03 - Constitutional Appears: Non-toxic, No Acute Distress - Head Exam Head Exam: NORMAL INSPECTION - Eye Exam Eye Exam: EOMI - ENT Exam ENT Exam: Mucous Membranes Moist - Respiratory Exam Respiratory Exam: Clear to Ausculation Bilateral, NORMAL BREATHING PATTERN. absent: Rales, Rhonchi, Wheezes - Cardiovascular Exam Cardiovascular Exam: REGULAR RHYTHM, +S1, +S2 Additional comments: renal access for dialysis over right side of chest; clean/dry/intact - GI/Abdominal Exam GI & Abdominal Exam: Soft, Normal Bowel Sounds. absent: Distended, Firm, Rigid , Tenderness, Rebound - Extremities Exam Extremities Exam: Full ROM. absent: Pedal Edema Additional comments: heels in prevalon boots - Neurological Exam Neurological Exam: Alert, Awake, Oriented x3 - Psychiatric Exam Psychiatric exam: Normal Affect, Normal Mood - Skin Skin Exam: Dry, Intact, Normal Color, Warm Additional comments: Left upper extremity: erythema surrounding the AV site; mild fluctuance surround the area (wrapped in marla) Assessment and Plan - Assessment and Plan (Free Text) Assessment: 1) NSTEMI Admission to ICU Cardiology Consult - Dr. Law - help appreciated ECHO 10/23/16 - there is a small to moderate circumferential pericardial effusion. No evidence of tamponade. The left ventricular systolic function is normal. Elevated left atrial pressure by Tissue Doppler. The right centricular systolic function is normal. There is a trace aortic regurgiation. Mild mitral regurgitation. There is mild to moderate tricuspid regurgiation. Mild pulmonary hypertension (please see full report) F/U ECHO-->pending HgbA1C: 7.0 TSH: 1.09, Lipid panel: T, chol: 178, LDL: 93, HDL: 46 Troponin: 9.7800-->9.0900-->6.5600-->4.7400 EKG - NSR @ 78, left atrial enlargement and nonspecific ST and T wave abnormalities (please see full reporT) Unchanged from prior EKG Risk factors: CAD, PVD, DM, HTN, Age, female RICARDO score: 3 points --> 13% risk at 14 days of: all-cause mortality, new or recurrent HI, or severe recurrent ischemia requiring urgent revascularization Patient is currently on heparin drip. Heparin drip Aspirin 81mg PO daily Plavix 75mg PO daily Crestor 10mg PO HS Discussed with Dr. Law, patient for cardiac cath tomorrow: 12/23/16 2) Hypertension (controlled) Nephro consult - Dr. Ambrose - help appreciated Cardiology Consult - Dr. Law - help appreciated Blood pressure stabilizeD s/p dialysis [facility] parameters for home medications: Cozaar 100mg PO daily Hydralazine 25mg PO BID Metolazone 5mg PO daily Lasix 40mg PO daily 3) Fluid Overload Patient reports nausea over night. Tolerated breakfast this morning but feels naueous Patient completed dialysis over night Blood pressure stabilized Holding parameters for home medications: Cozaar 100mg PO daily Hydralazine 25mg PO BID Metolazone 5mg PO daily Lasix 40mg PO daily Nephro consult - Dr. Ambrose - help appreciated 4) Leukocytosis ID consult - Dr. Wellington - help appreciated White count has normalized Lactic acid: 2.0 Procalcitonin: 0.38 Flagyl 500mg IV Q 8 hours (12/21/16) to cover for C. diff given recent IV abx Vancomycin 1 gram IV MWF (active since 12/22/16) Cefepime 1 gram IV Q24 hours (active since 12/21/16) CXR 12/20/18 - persistent moderate cardiomegaly, worsening pulmonary venous congestion and left pleural effusion (please see full reporT) Ct abdomen/pelvis (12/20/16): bilateral pleural effusions with basilar consolidation. Degenerative disease within the thoracic spine 12/20/16 foot X ray - no acute fracture or bone destruction. Moderate dorsal soft tissue swelling may represent cellulitis in the appropriate clinical setting (please see full report) Blood cultures (12/20/16): no growth after 24 hours X2 Note prior hx/infected of left AV shunt-->ordered for US over right upper extremity av failed graft site r/p abscess 5) Vomiting Zofran 4mg IVPB Q6H PRN N/V Clear liquid diet 6) Controlled Diabetes a1c: 7.0 (controlled compared to 09/2016) Lipid panel: T, chol: 178, LDL: 93, HDL: 46 Accuchecks QAC and HS Diabetic clear liquid diet Novolog insulin sliding scale Lantus 36u SC QHS 7) ESRD Dialysis TThSat Nephro consult - Dr. 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 Moderate dorsal soft tissue swelling may represent cellulitis in the appropriate clinical setting (please see full report) Patient was just discharged 12/19/16 from hospital per prior ID plan--> Patient was supposed to receive vancomycin IC after each dialysis for [address] Wellington per Fabi Kincaid [employer] note Holding vanco for now. Wound care-->order 9) History of CHF (questionable) Cardio consult - Dr. Law - help appreciated ECHO 10/23/16 - there is a small to moderate circumferential pericardial effusion. No evidence of tamponade. The left ventricular systolic function is normal. Elevated left atrial pressure by Tissue Doppler. The right centricular systolic function is normal. There is a trace aortic regurgiation. Mild mitral regurgitation. There is mild to moderate tricuspid regurgiation. Mild pulmonary hypertension (please see full report) F/U repeat ECHO Holding parameters on BP meds: Cozaar 100mg PO daily Hydralazine 25mg PO BID Metolazone 5mg PO daily Lasix 40mg PO daily Aspirin 81mg PO daily Plavix 75mg PO daily 10) Prophylaxis Plavix 75mg PO daily Heparin drip Pepcid 20mg IVP daily Patient at this time is a full code.
--- NOTE | 2016-12-22 16:53 | CP.PCM.PN ---
Subjective - Date & Time of Evaluation Date of Evaluation: 12/22/16 Time of Evaluation: 16:50 - Subjective Subjective: 71 year old female with PMH of anemia, anxiety, CHF, depression, DM2, HTN, HLD, ESRD, CKD seen in the ICU for left heel nonhealing wound. Patient has a left foot lateral and plantar ulcer that she states has been present for three months. She states that the ulcer causes her mild pain and denies ever noticing any drainage, malodor or other clinical signs of infection from the site. Patient also states that years ago she had an ulcer on the contralateral foot that she saw Dr. 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 Patient denies any recent N/V/F/C/CP/SOB. Patient denies any further pedal complaints at this time. Objective - Vital Signs/Intake and Output Vital Signs (last 24 hours): Temp Pulse Resp BP Pulse Ox 98.5 F 71 14 144/50 L 99 12/22/16 16:00 12/22/16 16:01 12/22/16 16:01 12/22/16 16:01 12/22/16 16:01 Intake and Output: 12/22/16 12/22/16 06:59 18:59 Intake Total 545.0 832.0 Output Total 0 Balance 545.0 832.0 - Medications Medications: Current Medications Aspirin (Aspirin Chewable) 81 mg PO DAILY [facility] Last Admin: 12/22/16 09:24 Dose: 81 mg Calcium Acetate (Phoslo) 667 mg PO BIDCC [facility] Last Admin: 12/22/16 09:25 Dose: 667 mg Clopidogrel Bisulfate (Plavix) 75 mg PO DAILY [facility] Last Admin: 12/22/16 09:23 Dose: 75 mg Collagenase (Santyl) 0 gm TOP DAILY [facility] Last Admin: 12/22/16 09:27 Dose: 1 appl Escitalopram Oxalate (Lexapro) 10 mg PO DAILY [facility] Last Admin: 12/22/16 09:24 Dose: 10 mg Famotidine (Pepcid) 20 mg IVP DAILY [facility] Last Admin: 12/22/16 09:22 Dose: 20 mg Furosemide (Lasix) 40 mg PO DAILY [facility] Last Admin: 12/22/16 09:24 Dose: 40 mg Hydralazine HCl (Apresoline) 25 mg PO Q12 [facility] Hydromorphone HCl (Dilaudid) 0.5 mg IVP Q6H PRN PRN Reason: Pain, severe (8-10) Last Admin: 12/21/16 08:19 Dose: 0.5 mg Metronidazole (Flagyl) 250 mg in 50 mls @ 100 mls/hr IVPB Q8 [facility] Stop: 12/25/16 17:31 Last Admin: 12/22/16 14:17 Dose: 100 mls/hr Vancomycin HCl 1 gm/ Sodium (Chloride) 250 mls @ 166.7 mls/hr IVPB MWF [facility] Last Admin: 12/22/16 09:17 Dose: 166.7 mls/hr Cefepime HCl (Maxipime Iv 1 Gm Premix) 1 gm in 50 mls @ 100 mls/hr IVPB Q24H [facility] Last Admin: 12/21/16 18:28 Dose: 100 mls/hr Heparin Sodium/Sodium Chloride (Heparin 67634 Units/250ml 1/2 Normal Saline) 25 ,000 units in 250 mls @ 8.89 mls/hr IV .Q24H PRN; Protocol; 14 UNITS/KG/HR PRN Reason: PROTOCOL Last Admin: 12/22/16 00:35 Dose: 13 units/kg/hr, 8.255 mls/hr Insulin Aspart (Novolog) 0 unit SC Q6H [facility] PRN Reason: Protocol Last Admin: 12/22/16 13:30 Dose: 3 unit Losartan Potassium (Cozaar) 100 mg PO DAILY [facility] Last Admin: 12/22/16 09:24 Dose: 100 mg Metolazone (Zaroxolyn) 5 mg PO DAILY [facility] Last Admin: 12/22/16 09:24 Dose: 5 mg Ondansetron HCl (Zofran Inj) 4 mg IVP Q6H PRN PRN Reason: Nausea/Vomiting Last Admin: 12/21/16 17:19 Dose: 4 mg Rosuvastatin Calcium (Crestor) 10 mg PO HS [facility] Last Admin: 12/21/16 22:50 Dose: 10 mg Vitamin B Complex/Vitamin C (Berocca) 1 tab PO DAILY [facility] Last Admin: 12/22/16 09:23 Dose: 1 tab - Labs Labs: 12/22/16 06:03 12/22/16 06:02 PT 10.9 SECONDS (9.7-12.2) 12/20/16 16:07 INR 1.0 12/20/16 16:07 APTT 58 SECONDS (21-34) H D 12/22/16 14:22 - Constitutional Appears: Well, Non-toxic, No Acute Distress - Extremities Exam Additional comments: Lower extremity focused exam: Vasc: DP/PT pulses palpable 1/4 b/l. CFT < 3 seconds to digits 1-10. Skin temperature warm to warm from proximal to distal. Moderate pitting edema noted to b/l lower extremities Neuro: Epicritic and protective sensation grossly intact b/l Derm: Velazco stage 1 ulceration seen at lateral and plantar left foot. No purulent drainage, malodor, undermining, tracking, periwound erythema or other clinical signs of infection noted to the area. Hyperkeratotic periwound area noted with mild maceration seen at plantar aspect of wound. Erythematous skin changes noted to anterior shins b/l (possible hemosiderin deposition). No other open wounds, lesions, maceration, xerosis or abnormal pigmentation noted at this time. MSK: Mild POP noted to ulcer site of left foot - Neurological Exam Neurological Exam: Alert, Awake, Oriented x3 - Psychiatric Exam Psychiatric exam: Normal Affect, Normal Mood Assessment and Plan - Assessment and Plan (Free Text) Assessment: 71 year old female with left foot ulcer secondary to DM, ESRD, CHF and CKD Plan: Patient was seen and evaluated at bedside Charts, labs and vitals reviewed Plan discussed with Dr. Stevens Wound dressed with xeroform, 4x4 gauze and kerlix cont. prevlon offloading boots placed Rx Santyl to be applied to ulcer site BID Continue with abx per ID Podiatry will continue to follow while in house
[2016-12-22] MEDS: Cefepime IV 1 gm in Dextrose 1 GM/50 ML BAG IVPB SCH (18:30)
--- NOTE | 2016-12-22 23:20 | US ---
EXAM: US Left Upper Extremity Non-Vascular, Complete CLINICAL HISTORY: 71 years old, female; Signs and symptoms; Other: Lt arm redness and mild swelling over the av graft site; Additional info: R/O abscess over av graft site TECHNIQUE: Real-time ultrasound scan of the left upper extremity with image documentation. COMPARISON: No relevant prior studies available. FINDINGS: Soft tissues: Edema. 0.8 x 0.5 x 0.5 cm hypoechoic lesion with internal echoes approximately 3 mm subjacent to skin surface. IMPRESSION: 1. Soft tissue lesion, nonspecific. DDX: Hematoma, seroma, abscess. Clinical correlation and follow up are recommended. 2. Incidental/non-acute findings are described above.
[2016-12-23] MEDS: (Novolog) Insulin Aspart, Recombinant 100 u/ml 10 ml vial SC SCH ×4 (00:05→18:40)
--- NOTE | 2016-12-23 00:06 | CP.PCM.PN ---
Subjective - Date & Time of Evaluation Date of Evaluation: 01/22/17 Time of Evaluation: 16:00 - Subjective Subjective: FEELS IMPROVED .. C/O PAIN ON L FOOT ALL PREVIOUS EMR REVIEWED ON HD T T S Objective - Vital Signs/Intake and Output Vital Signs (last 24 hours): Temp Pulse Resp BP Pulse Ox 98 F 67 23 170/58 H 100 12/22/16 20:00 12/22/16 23:02 12/22/16 23:02 12/22/16 23:02 12/22/16 23:02 Intake and Output: 12/22/16 12/23/16 18:59 06:59 Intake Total 940.2 291.0 Balance 940.2 291.0 - Medications Medications: Current Medications Aspirin (Aspirin Chewable) 81 mg PO DAILY [facility] Last Admin: 12/22/16 09:24 Dose: 81 mg Calcium Acetate (Phoslo) 667 mg PO BIDCC [facility] Last Admin: 12/22/16 18:03 Dose: 667 mg Clopidogrel Bisulfate (Plavix) 75 mg PO DAILY [facility] Last Admin: 12/22/16 09:23 Dose: 75 mg Collagenase (Santyl) 0 gm TOP DAILY [facility] Last Admin: 12/22/16 09:27 Dose: 1 appl Escitalopram Oxalate (Lexapro) 10 mg PO DAILY [facility] Last Admin: 12/22/16 09:24 Dose: 10 mg Famotidine (Pepcid) 20 mg IVP DAILY [facility] Last Admin: 12/22/16 09:22 Dose: 20 mg Furosemide (Lasix) 40 mg PO DAILY [facility] Last Admin: 12/22/16 09:24 Dose: 40 mg Hydralazine HCl (Apresoline) 25 mg PO Q12 [facility] Last Admin: 12/22/16 22:05 Dose: 25 mg Hydromorphone HCl (Dilaudid) 0.5 mg IVP Q6H PRN PRN Reason: Pain, severe (8-10) Last Admin: 12/21/16 08:19 Dose: 0.5 mg Metronidazole (Flagyl) 250 mg in 50 mls @ 100 mls/hr IVPB Q8 [facility] Stop: 12/25/16 17:31 Last Admin: 12/22/16 22:06 Dose: 100 mls/hr Vancomycin HCl 1 gm/ Sodium (Chloride) 250 mls @ 166.7 mls/hr IVPB MWF [facility] Last Admin: 12/22/16 09:17 Dose: 166.7 mls/hr Cefepime HCl (Maxipime Iv 1 Gm Premix) 1 gm in 50 mls @ 100 mls/hr IVPB Q24H [facility] Last Admin: 12/22/16 18:30 Dose: 100 mls/hr Heparin Sodium/Sodium Chloride (Heparin 76640 Units/250ml 1/2 Normal Saline) 25 ,000 units in 250 mls @ 8.89 mls/hr IV .Q24H PRN; Protocol; 14 UNITS/KG/HR PRN Reason: PROTOCOL Last Admin: 12/22/16 00:35 Dose: 13 units/kg/hr, 8.255 mls/hr Insulin Aspart (Novolog) 0 unit SC Q6H [facility] PRN Reason: Protocol Last Admin: 12/22/16 18:03 Dose: 2 unit Losartan Potassium (Cozaar) 100 mg PO DAILY [facility] Last Admin: 12/22/16 09:24 Dose: 100 mg Metolazone (Zaroxolyn) 5 mg PO DAILY [facility] Last Admin: 12/22/16 09:24 Dose: 5 mg Ondansetron HCl (Zofran Inj) 4 mg IVP Q6H PRN PRN Reason: Nausea/Vomiting Last Admin: 12/21/16 17:19 Dose: 4 mg Rosuvastatin Calcium (Crestor) 10 mg PO HS [facility] Last Admin: 12/22/16 22:05 Dose: 10 mg Vitamin B Complex/Vitamin C (Berocca) 1 tab PO DAILY [facility] Last Admin: 12/22/16 09:23 Dose: 1 tab - Labs Labs: 12/22/16 06:03 12/22/16 06:02 PT 10.9 SECONDS (9.7-12.2) 12/20/16 16:07 INR 1.0 12/20/16 16:07 APTT 58 SECONDS (21-34) H D 12/22/16 14:22 Assessment and Plan - Assessment and Plan (Free Text) Assessment: ESRD ON HD T T S .. FOR HD IN AM ANEMIA OF CKD ,, H/H STABLE C/O CURRENT CARE
[2016-12-23] MEDS: metroNIDAZOLE IV 250mg/50 ml 250 MG/50 ML BAG IVPB SCH ×3 (05:58→22:00)
[2016-12-23 06:28] LABS: BASO # 0.1 K/uL (0.0-0.2); BASO % 1.6 % (0.0-2.0); EOS # 0.8 K/uL (0.0-0.7); EOS % 8.7 % (0.0-4.0); HEMOGLOBIN 10.9 g/dL (11.0-16.0); LYMPH # 1.2 K/uL (1.0-4.3); MEAN CELL VOLUME 95.5 fL (81.0-99.0); MEAN CORPUSCULAR HEMOGLOBIN 30.5 pg (27.0-31.0); MEAN CORPUSCULAR HGB CONC 31.9 g/dL (33.0-37.0); MEAN PLATELET VOLUME 10.8 fL (7.2-11.7); MONO # 1.3 K/uL (0.0-0.8); MONO % 14.6 % (0.0-10.0); NEUT # 5.6 K/uL (1.8-7.0); NEUT % 62.1 % (50.0-75.0); RBC 3.58 Mil/uL (3.80-5.20)
[2016-12-23 06:43] LABS: ALB/GLOB RATIO 1.1 (1.0-2.1)
[2016-12-23 06:44] LABS: MAGNESIUM 2.1 mg/dL (1.6-2.3)
--- NOTE | 2016-12-23 11:29 | CP.CCUPN ---
<Marisel Longo CheriArmani - Last Filed: 12/23/16 11:23> CCU Subjective - Physician Review Subjective (Free Text): Patient is seen and examined at bedside in the morning. Patient reports feeling nausea and has discomfort in her left foot. Patient is having a cath procedure at [facility] today. When the patient was reminded of her procedure, she became upset and anxious. Patient denies chest pain, shortness of breath, abdominal pain, diarrhea, and constipation. 12/23/16 11:23 CCU Objective - Vital Signs / Intake & Output Vital Signs (Last 4 hours): Vital Signs Temp Pulse Resp Pulse Ox 12/23/16 07:25 97.5 F L 73 18 100 Intake and Output (Last 8hrs): Intake & Output 12/22/16 12/23/16 12/23/16 22:59 06:59 14:59 Intake Total 557.4 65.6 50 Balance 557.4 65.6 50 Intake: Intake, IV Amount 157.4 65.6 0 Right Forearm 57.4 65.6 0 Right Forearm #2 100 Oral 400 50 Other: # Voids Urine, Voided 1 # Bowel Movements 1 0 - Physical Exam Head: Positive for: Atraumatic, Normocephalic Extroacular Muscles: Positive for: EOMI Conjunctiva: Positive for: Normal Mouth: Positive for: Moist Mucous Membranes Neck: Positive for: Normal Range of Motion Respiratory/Chest: Positive for: Clear to Auscultation. Negative for: Wheezes, Rhonchi Cardiovascular: Positive for: Regular Rate and Rhythm, Normal S1, S2 Abdomen: Positive for: Normal Bowel Sounds. Negative for: Tenderness Upper Extremity: Positive for: Normal Inspection. Negative for: Edema Lower Extremity: Positive for: Normal Inspection. Negative for: Edema Skin: Positive for: Warm, Dry, Other (stage 2 ulcer on left heel, banadage; lesion on left arm AC/AV site- bandaged) Psychiatric: Positive for: Alert, Oriented x 3, Normal Affect, Depressed Mood - Medications Active Medications: Active Medications Generic Name Dose Route Start Last Admin Trade Name Freq PRN Reason Stop Dose Admin Aspirin 81 mg 12/21/16 10:00 12/23/16 07:16 Aspirin Chewable PO 81 mg DAILY ELINA Administration Calcium Acetate 667 mg 12/21/16 08:00 12/22/16 18:03 Phoslo PO 667 mg BIDCC ELINA Administration Clopidogrel Bisulfate 75 mg 12/20/16 18:50 12/23/16 07:15 Plavix PO 75 mg DAILY ELINA Administration Collagenase 0 gm 12/21/16 10:00 12/22/16 09:27 Santyl TOP 1 appl DAILY ELINA Administration Escitalopram Oxalate 10 mg 12/21/16 10:00 12/22/16 09:24 Lexapro PO 10 mg DAILY ELINA Administration Famotidine 20 mg 12/20/16 18:00 12/22/16 09:22 Pepcid IVP 20 mg DAILY ELINA Administration Furosemide 40 mg 12/21/16 10:00 12/22/16 09:24 Lasix PO 40 mg DAILY ELINA Administration Hydralazine HCl 25 mg 12/22/16 22:00 12/22/16 22:05 Apresoline PO 25 mg Q12 ELINA Administration Hydromorphone HCl 0.5 mg 12/21/16 08:04 12/21/16 08:19 Dilaudid IVP 0.5 mg Q6H PRN Administration Pain, severe (8-10) Metronidazole 250 mg in 50 mls @ 100 mls/hr 12/21/16 14:00 12/23/16 05:58 Flagyl IVPB 12/25/16 17:31 100 mls/hr Q8 ELINA Administration Vancomycin HCl 1 gm/ Sodium 250 mls @ 166.7 mls/hr 12/22/16 09:00 12/22/16 09 :17 Chloride IVPB 166.7 mls/hr MWF ELINA Administration Cefepime HCl 1 gm in 50 mls @ 100 mls/hr 12/21/16 17:45 12/22/16 18:30 Maxipime Iv 1 Gm Premix IVPB 100 mls/hr Q24H ELINA Administration Heparin Sodium/Sodium Chloride 25,000 units in 250 mls @ 8.89 mls/hr 12/22/16 00:30 12/22/16 00:35 Heparin 60506 Units/250ml 1/2 Normal Saline IV 13 units/kg/hr .Q24H PRN 8.255 mls/hr PROTOCOL Administration Protocol 14 UNITS/KG/HR Insulin Aspart 0 unit 12/20/16 18:45 12/23/16 07:26 Novolog SC Not Given Q6H [facility] Protocol Losartan Potassium 100 mg 12/21/16 09:10 12/22/16 09:24 Cozaar PO 100 mg DAILY ELINA Administration Metolazone 5 mg 12/21/16 10:00 12/22/16 09:24 Zaroxolyn PO 5 mg DAILY ELINA Administration Ondansetron HCl 4 mg 12/20/16 17:19 12/21/16 17:19 Zofran Inj IVP 4 mg Q6H PRN Administration Nausea/Vomiting Rosuvastatin Calcium 10 mg 12/20/16 22:00 12/22/16 22:05 Crestor PO 10 mg HS ELINA Administration Vitamin B Complex/Vitamin C 1 tab 12/21/16 10:00 12/22/16 09:23 Berocca PO 1 tab DAILY ELINA Administration - Patient Studies Lab Studies: Microbiology Studies 12/22/16 Unknown Gram Stain - Final Arm - Left Wound Culture - Preliminary NO GROWTH AFTER 24 HOURS 12/20/16 16:20 Blood Culture - Preliminary Blood-Venous NO GROWTH AFTER 48 HOURS 12/20/16 18:19 MRSA Culture (Admit) - Final Naris MRSA NOT DETECTED Lab Studies 12/23/16 12/23/16 12/23/16 Range/Units 06:57 06:22 06:22 WBC (4.8-10.8) K/uL RBC (3.80-5.20) Mil/uL Hgb (11.0-16.0) g/dL Hct (34.0-47.0) % MCV (81.0-99.0) fL MCH (27.0-31.0) pg MCHC (33.0-37.0) g/dL RDW (11.5-14.5) % Plt Count (130-400) K/uL MPV (7.2-11.7) fL Neut % (Auto) (50.0-75.0) % Lymph % (Auto) (20.0-40.0) % Mcminn % (Auto) (0.0-10.0) % Eos % (Auto) (0.0-4.0) % Baso % (Auto) (0.0-2.0) % Neut # (1.8-7.0) K/uL Lymph # (1.0-4.3) K/uL Mcminn # (0.0-0.8) K/uL Eos # (0.0-0.7) K/uL Baso # (0.0-0.2) K/uL APTT 61 H (21-34) SECONDS Sodium 130 L (132-148) mmol/L Potassium 5.2 (3.6-5.2) mmol/L Chloride 92 L (98-107) mmol/L Carbon Dioxide 23 (22-30) mmol/L Anion Gap 20 (10-20) BUN 26 H (7-17) mg/dL Creatinine 5.1 H (0.7-1.2) MG/DL Est GFR ( Amer) 10 Est GFR (Non-Af Amer) 8 POC Glucose (mg/dL) 369 H (65-110) mg/dL Random Glucose 308 H (65-105) mg/dL Calcium 8.0 L (8.6-10.4) mg/dl Phosphorus 7.7 H (2.5-4.5) mg/dL Magnesium 2.1 (1.6-2.3) mg/dL Total Bilirubin 0.5 (0.2-1.3) mg/dL AST 25 (14-36) U/L ALT 40 (9-52) U/L Alkaline Phosphatase 100 (38-126) U/L Total Protein 5.7 L (6.3-8.3) g/dL Albumin 3.0 L (3.5-5.0) g/dL Globulin 2.7 (2.2-3.9) gm/dL Albumin/Globulin Ratio 1.1 (1.0-2.1) C. difficile Ag & Toxin (NEGATIVE) 12/23/16 12/23/16 12/22/16 Range/Units 06:22 00:04 17:47 WBC 9.0 (4.8-10.8) K/uL RBC 3.58 L (3.80-5.20) Mil/uL Hgb 10.9 L (11.0-16.0) g/dL Hct 34.2 (34.0-47.0) % MCV 95.5 (81.0-99.0) fL MCH 30.5 (27.0-31.0) pg MCHC 31.9 L (33.0-37.0) g/dL RDW 16.0 H (11.5-14.5) % Plt Count 171 (130-400) K/uL MPV 10.8 (7.2-11.7) fL Neut % (Auto) 62.1 (50.0-75.0) % Lymph % (Auto) 13.0 L (20.0-40.0) % Mcminn % (Auto) 14.6 H (0.0-10.0) % Eos % (Auto) 8.7 H (0.0-4.0) % Baso % (Auto) 1.6 (0.0-2.0) % Neut # 5.6 (1.8-7.0) K/uL Lymph # 1.2 (1.0-4.3) K/uL Mcminn # 1.3 H (0.0-0.8) K/uL Eos # 0.8 H (0.0-0.7) K/uL Baso # 0.1 (0.0-0.2) K/uL APTT (21-34) SECONDS Sodium (132-148) mmol/L Potassium (3.6-5.2) mmol/L Chloride (98-107) mmol/L Carbon Dioxide (22-30) mmol/L Anion Gap (10-20) BUN (7-17) mg/dL Creatinine (0.7-1.2) MG/DL Est GFR ( Amer) Est GFR (Non-Af Amer) POC Glucose (mg/dL) 262 H 307 H (65-110) mg/dL Random Glucose (65-105) mg/dL Calcium (8.6-10.4) mg/dl Phosphorus (2.5-4.5) mg/dL Magnesium (1.6-2.3) mg/dL Total Bilirubin (0.2-1.3) mg/dL AST (14-36) U/L ALT (9-52) U/L Alkaline Phosphatase (38-126) U/L Total Protein (6.3-8.3) g/dL Albumin (3.5-5.0) g/dL Globulin (2.2-3.9) gm/dL Albumin/Globulin Ratio (1.0-2.1) C. difficile Ag & Toxin (NEGATIVE) 12/22/16 12/22/16 12/20/16 Range/Units 14:22 11:15 16:49 WBC (4.8-10.8) K/uL RBC (3.80-5.20) Mil/uL Hgb (11.0-16.0) g/dL Hct (34.0-47.0) % MCV (81.0-99.0) fL MCH (27.0-31.0) pg MCHC (33.0-37.0) g/dL RDW (11.5-14.5) % Plt Count (130-400) K/uL MPV (7.2-11.7) fL Neut % (Auto) (50.0-75.0) % Lymph % (Auto) (20.0-40.0) % Mcminn % (Auto) (0.0-10.0) % Eos % (Auto) (0.0-4.0) % Baso % (Auto) (0.0-2.0) % Neut # (1.8-7.0) K/uL Lymph # (1.0-4.3) K/uL Mcminn # (0.0-0.8) K/uL Eos # (0.0-0.7) K/uL Baso # (0.0-0.2) K/uL APTT 58 H D (21-34) SECONDS Sodium (132-148) mmol/L Potassium (3.6-5.2) mmol/L Chloride (98-107) mmol/L Carbon Dioxide (22-30) mmol/L Anion Gap (10-20) BUN (7-17) mg/dL Creatinine (0.7-1.2) MG/DL Est GFR ( Amer) Est GFR (Non-Af Amer) POC Glucose (mg/dL) 280 H (65-110) mg/dL Random Glucose (65-105) mg/dL Calcium (8.6-10.4) mg/dl Phosphorus (2.5-4.5) mg/dL Magnesium (1.6-2.3) mg/dL Total Bilirubin (0.2-1.3) mg/dL AST (14-36) U/L ALT (9-52) U/L Alkaline Phosphatase (38-126) U/L Total Protein (6.3-8.3) g/dL Albumin (3.5-5.0) g/dL Globulin (2.2-3.9) gm/dL Albumin/Globulin Ratio (1.0-2.1) C. difficile Ag & Toxin Negative (NEGATIVE) Laboratory Results - last 24 hr 12/20/16 12/22/16 12/22/16 16:49 11:15 14:22 WBC RBC Hgb Hct MCV MCH MCHC RDW Plt Count MPV Neut % (Auto) Lymph % (Auto) Mcminn % (Auto) Eos % (Auto) Baso % (Auto) Neut # Lymph # Mcminn # Eos # Baso # APTT 58 H D Sodium Potassium Chloride Carbon Dioxide Anion Gap BUN Creatinine Est GFR ( Amer) Est GFR (Non-Af Amer) POC Glucose (mg/dL) 280 H Random Glucose Calcium Phosphorus Magnesium Total Bilirubin AST ALT Alkaline Phosphatase Total Protein Albumin Globulin Albumin/Globulin Ratio C. difficile Ag & Toxin Negative 12/22/16 12/23/16 12/23/16 17:47 00:04 06:22 WBC 9.0 RBC 3.58 L Hgb 10.9 L Hct 34.2 MCV 95.5 MCH 30.5 MCHC 31.9 L RDW 16.0 H Plt Count 171 MPV 10.8 Neut % (Auto) 62.1 Lymph % (Auto) 13.0 L Mcminn % (Auto) 14.6 H Eos % (Auto) 8.7 H Baso % (Auto) 1.6 Neut # 5.6 Lymph # 1.2 Mcminn # 1.3 H Eos # 0.8 H Baso # 0.1 APTT Sodium Potassium Chloride Carbon Dioxide Anion Gap BUN Creatinine Est GFR ( Amer) Est GFR (Non-Af Amer) POC Glucose (mg/dL) 307 H 262 H Random Glucose Calcium Phosphorus Magnesium Total Bilirubin AST ALT Alkaline Phosphatase Total Protein Albumin Globulin Albumin/Globulin Ratio C. difficile Ag & Toxin 12/23/16 12/23/16 12/23/16 06:22 06:22 06:57 WBC RBC Hgb Hct MCV MCH MCHC RDW Plt Count MPV Neut % (Auto) Lymph % (Auto) Mcminn % (Auto) Eos % (Auto) Baso % (Auto) Neut # Lymph # Mcminn # Eos # Baso # APTT 61 H Sodium 130 L Potassium 5.2 Chloride 92 L Carbon Dioxide 23 Anion Gap 20 BUN 26 H Creatinine 5.1 H Est GFR ( Amer) 10 Est GFR (Non-Af Amer) 8 POC Glucose (mg/dL) 369 H Random Glucose 308 H Calcium 8.0 L Phosphorus 7.7 H Magnesium 2.1 Total Bilirubin 0.5 AST 25 ALT 40 Alkaline Phosphatase 100 Total Protein 5.7 L Albumin 3.0 L Globulin 2.7 Albumin/Globulin Ratio 1.1 C. difficile Ag & Toxin Fingerstick Blood Sugar Results: 108 Review of Systems - Constitutional Constitutional: absent: Fever - EENT Ears: absent: Dizziness - Cardiovascular Cardiovascular: absent: Chest Pain, Dyspnea, Lightheadedness, Palpitations - Respiratory Respiratory: absent: Cough, Dyspnea - Gastrointestinal Gastrointestinal: Nausea, Vomiting. absent: Abdominal Pain, Diarrhea - Neurological Neurological: absent: Dizziness - Psychiatric Psychiatric: Anxiety - Endocrine Endocrine: absent: Palpitations Critical Care Progress Note - Nutrition Nutrition: Nutrition Category Date Time Status Renal Diet [DIET] Diets 12/21/16 Breakfast Active Assessment/Plan - Assessment and Plan (Free Text) Assessment: 71 year old female with medical history of ESRD, HTN, CHF, DM, anemia, and back pain, presents with intractable vomiting. Neuro: - Alert, oriented x3 Pulm: - Chest Xray: Persistent moderate cardiomegaly, worsening pulmonary venous congestion and left pleural effusion. CV: - Troponin x 3: 9.0900, 6.5600, 4.7400 - Chest Xray: Persistent moderate cardiomegaly, worsening pulmonary venous congestion and left pleural effusion. - Echo from 10/23/16: small to moderate circumferential pericardial effusions; Elevated LA pressure; trace aortic regurg; mild mitral regurg; mild to moderate tricuspid regurg; RV systolic pressure is estimated at -44mmHg compatible with mild pulmonary hypertension. - Cardiology consulted, Dr. Law. - Cardiac cath today, 12/23/16, at [facility]. Endo: - Diabetes - Accuchecks - HgbA1c: 7.0 Heme: - Monitor H/H GI: - Nausea and vomiting: Zofran - Abdomen/Pelvic CT: B/L pleural effusions with left basilar consolidation; degenerative disease within thoracic spine. Renal: - ESRD, Dialysis TTS - Will receive dialysis after cath procedure - [place] consulted, Dr. Ambrose, help appreciated - Monitor BUN/Cr Skin: - Left foot heel ulcer - Foot Xray: no acute fracture or bone destruction; moderate dorsal soft tissue swelling, may represent cellulitis - Wound care consult - Wound culture: no growth after 24hrs - Podiatry consulted: Dr. Stevens, help appreciated. - Management of left heel ulcer as per podiatry - Left arm AC, AV graft site: r/o abscess - Ultrasound of LUE: soft tissue lesion, 0.8x0.5x0.5cm, hypoechoic, nonspecific; ddx: hematoma, seroma, abscess; clinical correlation and f/u recommended ID: - WBC: 13.3 on 12/21; 9.6 on 12/22 - Blood culture: negative after 24hr - Flagyl 500mg IV Q8 and Cefepime 1gm IV - Vanco 1gm IV MWF - Wound culture of left heel ulcer: no growth after 24hrs - Wound care consulted - Left arm AC, AV graft site: r/o abscess - Ultrasound of LUE: soft tissue lesion, 0.8x0.5x0.5cm, hypoechoic, nonspecific; ddx: hematoma, seroma, abscess; clinical correlation and f/u recommended Prophylaxis - DVT: Plavix 75mg PO daily, ASA 81, Heparin drip - GI: Pepcid 20mg IV Daily <Stalin John - Last Filed: 12/23/16 18:12> CCU Objective - Vital Signs / Intake & Output Vital Signs (Last 4 hours): Vital Signs Temp Pulse Pulse Resp BP BP Pulse Ox 12/23/16 17:03 98 F 69 14 144/48 L 100 12/23/16 16:33 111/43 L 12/23/16 16:02 134/51 L 12/23/16 15:33 146/53 L 12/23/16 15:18 143/109 H 12/23/16 15:03 186/68 H 12/23/16 14:48 173/58 H 12/23/16 14:33 98.3 F 15 170/78 H 100 12/23/16 14:30 98.3 F 75 16 170/78 H Intake and Output (Last 8hrs): Intake & Output 12/23/16 12/23/16 12/23/16 06:59 14:59 22:59 Intake Total 65.6 250 Output Total 1 Balance 65.6 249 Intake: Intake, IV Amount 65.6 0 Right Forearm 65.6 0 Oral 250 Output: Stool 1 Other: # Voids Urine, Voided 1 # Bowel Movements 0 - Medications Active Medications: Active Medications Generic Name Dose Route Start Last Admin Trade Name Freq PRN Reason Stop Dose Admin Aspirin 81 mg 12/21/16 10:00 12/23/16 14:19 Aspirin Chewable PO Not Given DAILY [facility] Calcium Acetate 667 mg 12/21/16 08:00 12/22/16 18:03 Phoslo PO 667 mg BIDCC ELINA Administration Clopidogrel Bisulfate 75 mg 12/20/16 18:50 12/23/16 07:15 Plavix PO 75 mg DAILY [facility] Administration Collagenase 0 gm 12/21/16 10:00 12/22/16 09:27 Santyl TOP 1 appl DAILY ELINA Administration Escitalopram Oxalate 10 mg 12/21/16 10:00 12/22/16 09:24 Lexapro PO 10 mg DAILY ELINA Administration Famotidine 20 mg 12/20/16 18:00 12/22/16 09:22 Pepcid IVP 20 mg DAILY ELINA Administration Furosemide 40 mg 12/21/16 10:00 12/22/16 09:24 Lasix PO 40 mg DAILY ELINA Administration Hydralazine HCl 25 mg 12/22/16 22:00 12/22/16 22:05 Apresoline PO 25 mg Q12 ELINA Administration Hydromorphone HCl 0.5 mg 12/21/16 08:04 12/21/16 08:19 Dilaudid IVP 0.5 mg Q6H PRN Administration Pain, severe (8-10) Metronidazole 250 mg in 50 mls @ 100 mls/hr 12/21/16 14:00 12/23/16 14:40 Flagyl IVPB 12/25/16 17:31 Not Given Q8 ELINA Vancomycin HCl 1 gm/ Sodium 250 mls @ 166.7 mls/hr 12/22/16 09:00 12/22/16 09 :17 Chloride IVPB 166.7 mls/hr MWF ELINA Administration Cefepime HCl 1 gm in 50 mls @ 100 mls/hr 12/21/16 17:45 12/22/16 18:30 Maxipime Iv 1 Gm Premix IVPB 100 mls/hr Q24H ELINA Administration Heparin Sodium/Sodium Chloride 25,000 units in 250 mls @ 8.89 mls/hr 12/22/16 00:30 12/22/16 00:35 Heparin 57049 Units/250ml 1/2 Normal Saline IV 13 units/kg/hr .Q24H PRN 8.255 mls/hr PROTOCOL Administration Protocol 14 UNITS/KG/HR Insulin Aspart 0 unit 12/20/16 18:45 12/23/16 13:11 Novolog SC 8 unit Q6H ELINA Administration Protocol Losartan Potassium 100 mg 12/21/16 09:10 12/22/16 09:24 Cozaar PO 100 mg DAILY ELINA Administration Metolazone 5 mg 12/21/16 10:00 12/22/16 09:24 Zaroxolyn PO 5 mg DAILY ELINA Administration Ondansetron HCl 4 mg 12/20/16 17:19 12/21/16 17:19 Zofran Inj IVP 4 mg Q6H PRN Administration Nausea/Vomiting Rosuvastatin Calcium 10 mg 12/20/16 22:00 12/22/16 22:05 Crestor PO 10 mg HS ELINA Administration Vitamin B Complex/Vitamin C 1 tab 12/21/16 10:00 12/22/16 09:23 Berocca PO 1 tab DAILY ELINA Administration - Patient Studies Lab Studies: Microbiology Studies 12/20/16 16:20 Blood Culture - Preliminary Blood-Venous NO GROWTH AFTER 3 DAYS 12/21/16 22:30 Ova and Parasite Concentrate Exam - Final Stool 12/22/16 Unknown Gram Stain - Final Arm - Left Wound Culture - Preliminary NO GROWTH AFTER 24 HOURS 12/20/16 18:19 MRSA Culture (Admit) - Final Naris MRSA NOT DETECTED Lab Studies 12/23/16 12/23/16 12/23/16 Range/Units 16:46 13:01 06:57 WBC (4.8-10.8) K/uL RBC (3.80-5.20) Mil/uL Hgb (11.0-16.0) g/dL Hct (34.0-47.0) % MCV (81.0-99.0) fL MCH (27.0-31.0) pg MCHC (33.0-37.0) g/dL RDW (11.5-14.5) % Plt Count (130-400) K/uL MPV (7.2-11.7) fL Neut % (Auto) (50.0-75.0) % Lymph % (Auto) (20.0-40.0) % Mcminn % (Auto) (0.0-10.0) % Eos % (Auto) (0.0-4.0) % Baso % (Auto) (0.0-2.0) % Neut # (1.8-7.0) K/uL Lymph # (1.0-4.3) K/uL Mcminn # (0.0-0.8) K/uL Eos # (0.0-0.7) K/uL Baso # (0.0-0.2) K/uL APTT (21-34) SECONDS Sodium (132-148) mmol/L Potassium (3.6-5.2) mmol/L Chloride (98-107) mmol/L Carbon Dioxide (22-30) mmol/L Anion Gap (10-20) BUN (7-17) mg/dL Creatinine (0.7-1.2) MG/DL Est GFR ( Amer) Est GFR (Non-Af Amer) POC Glucose (mg/dL) 240 H 389 H 369 H (65-110) mg/dL Random Glucose (65-105) mg/dL Calcium (8.6-10.4) mg/dl Phosphorus (2.5-4.5) mg/dL Magnesium (1.6-2.3) mg/dL Total Bilirubin (0.2-1.3) mg/dL AST (14-36) U/L ALT (9-52) U/L Alkaline Phosphatase (38-126) U/L Total Protein (6.3-8.3) g/dL Albumin (3.5-5.0) g/dL Globulin (2.2-3.9) gm/dL Albumin/Globulin Ratio (1.0-2.1) 12/23/16 12/23/16 12/23/16 Range/Units 06:22 06:22 06:22 WBC 9.0 (4.8-10.8) K/uL RBC 3.58 L (3.80-5.20) Mil/uL Hgb 10.9 L (11.0-16.0) g/dL Hct 34.2 (34.0-47.0) % MCV 95.5 (81.0-99.0) fL MCH 30.5 (27.0-31.0) pg MCHC 31.9 L (33.0-37.0) g/dL RDW 16.0 H (11.5-14.5) % Plt Count 171 (130-400) K/uL MPV 10.8 (7.2-11.7) fL Neut % (Auto) 62.1 (50.0-75.0) % Lymph % (Auto) 13.0 L (20.0-40.0) % Mcminn % (Auto) 14.6 H (0.0-10.0) % Eos % (Auto) 8.7 H (0.0-4.0) % Baso % (Auto) 1.6 (0.0-2.0) % Neut # 5.6 (1.8-7.0) K/uL Lymph # 1.2 (1.0-4.3) K/uL Mcminn # 1.3 H (0.0-0.8) K/uL Eos # 0.8 H (0.0-0.7) K/uL Baso # 0.1 (0.0-0.2) K/uL APTT 61 H (21-34) SECONDS Sodium 130 L (132-148) mmol/L Potassium 5.2 (3.6-5.2) mmol/L Chloride 92 L (98-107) mmol/L Carbon Dioxide 23 (22-30) mmol/L Anion Gap 20 (10-20) BUN 26 H (7-17) mg/dL Creatinine 5.1 H (0.7-1.2) MG/DL Est GFR ( Amer) 10 Est GFR (Non-Af Amer) 8 POC Glucose (mg/dL) (65-110) mg/dL Random Glucose 308 H (65-105) mg/dL Calcium 8.0 L (8.6-10.4) mg/dl Phosphorus 7.7 H (2.5-4.5) mg/dL Magnesium 2.1 (1.6-2.3) mg/dL Total Bilirubin 0.5 (0.2-1.3) mg/dL AST 25 (14-36) U/L ALT 40 (9-52) U/L Alkaline Phosphatase 100 (38-126) U/L Total Protein 5.7 L (6.3-8.3) g/dL Albumin 3.0 L (3.5-5.0) g/dL Globulin 2.7 (2.2-3.9) gm/dL Albumin/Globulin Ratio 1.1 (1.0-2.1) 12/23/16 Range/Units 00:04 WBC (4.8-10.8) K/uL RBC (3.80-5.20) Mil/uL Hgb (11.0-16.0) g/dL Hct (34.0-47.0) % MCV (81.0-99.0) fL MCH (27.0-31.0) pg MCHC (33.0-37.0) g/dL RDW (11.5-14.5) % Plt Count (130-400) K/uL MPV (7.2-11.7) fL Neut % (Auto) (50.0-75.0) % Lymph % (Auto) (20.0-40.0) % Mcminn % (Auto) (0.0-10.0) % Eos % (Auto) (0.0-4.0) % Baso % (Auto) (0.0-2.0) % Neut # (1.8-7.0) K/uL Lymph # (1.0-4.3) K/uL Mcminn # (0.0-0.8) K/uL Eos # (0.0-0.7) K/uL Baso # (0.0-0.2) K/uL APTT (21-34) SECONDS Sodium (132-148) mmol/L Potassium (3.6-5.2) mmol/L Chloride (98-107) mmol/L Carbon Dioxide (22-30) mmol/L Anion Gap (10-20) BUN (7-17) mg/dL Creatinine (0.7-1.2) MG/DL Est GFR ( Amer) Est GFR (Non-Af Amer) POC Glucose (mg/dL) 262 H (65-110) mg/dL Random Glucose (65-105) mg/dL Calcium (8.6-10.4) mg/dl Phosphorus (2.5-4.5) mg/dL Magnesium (1.6-2.3) mg/dL Total Bilirubin (0.2-1.3) mg/dL AST (14-36) U/L ALT (9-52) U/L Alkaline Phosphatase (38-126) U/L Total Protein (6.3-8.3) g/dL Albumin (3.5-5.0) g/dL Globulin (2.2-3.9) gm/dL Albumin/Globulin Ratio (1.0-2.1) Laboratory Results - last 24 hr 12/23/16 12/23/16 12/23/16 00:04 06:22 06:22 WBC 9.0 RBC 3.58 L Hgb 10.9 L Hct 34.2 MCV 95.5 MCH 30.5 MCHC 31.9 L RDW 16.0 H Plt Count 171 MPV 10.8 Neut % (Auto) 62.1 Lymph % (Auto) 13.0 L Mcminn % (Auto) 14.6 H Eos % (Auto) 8.7 H Baso % (Auto) 1.6 Neut # 5.6 Lymph # 1.2 Mcminn # 1.3 H Eos # 0.8 H Baso # 0.1 APTT 61 H Sodium Potassium Chloride Carbon Dioxide Anion Gap BUN Creatinine Est GFR ( Amer) Est GFR (Non-Af Amer) POC Glucose (mg/dL) 262 H Random Glucose Calcium Phosphorus Magnesium Total Bilirubin AST ALT Alkaline Phosphatase Total Protein Albumin Globulin Albumin/Globulin Ratio 12/23/16 12/23/16 12/23/16 06:22 06:57 13:01 WBC RBC Hgb Hct MCV MCH MCHC RDW Plt Count MPV Neut % (Auto) Lymph % (Auto) Mcminn % (Auto) Eos % (Auto) Baso % (Auto) Neut # Lymph # Mcminn # Eos # Baso # APTT Sodium 130 L Potassium 5.2 Chloride 92 L Carbon Dioxide 23 Anion Gap 20 BUN 26 H Creatinine 5.1 H Est GFR ( Amer) 10 Est GFR (Non-Af Amer) 8 POC Glucose (mg/dL) 369 H 389 H Random Glucose 308 H Calcium 8.0 L Phosphorus 7.7 H Magnesium 2.1 Total Bilirubin 0.5 AST 25 ALT 40 Alkaline Phosphatase 100 Total Protein 5.7 L Albumin 3.0 L Globulin 2.7 Albumin/Globulin Ratio 1.1 12/23/16 16:46 WBC RBC Hgb Hct MCV MCH MCHC RDW Plt Count MPV Neut % (Auto) Lymph % (Auto) Mcminn % (Auto) Eos % (Auto) Baso % (Auto) Neut # Lymph # Mcminn # Eos # Baso # APTT Sodium Potassium Chloride Carbon Dioxide Anion Gap BUN Creatinine Est GFR ( Amer) Est GFR (Non-Af Amer) POC Glucose (mg/dL) 240 H Random Glucose Calcium Phosphorus Magnesium Total Bilirubin AST ALT Alkaline Phosphatase Total Protein Albumin Globulin Albumin/Globulin Ratio Critical Care Progress Note - Nutrition Nutrition: Nutrition Category Date Time Status Renal Diet [DIET] Diets 12/21/16 Breakfast Active Assessment/Plan (1) Elevated troponin Current Visit: Yes Status: Acute Comment: Non-ST elevation IA Seen by cardiology and plan is to get cardiac cath Continue heparin, aspirin and Plavix (2) End stage renal disease on dialysis Current Visit: Yes Status: Acute Comment: Continue hemodialysis (3) Vomiting Current Visit: Yes Status: Acute Attending/Attestation - Attestation I have personally seen and examined this patient.: Yes I have fully participated in the care of the patient.: Yes I have reviewed all pertinent clinical information: Yes Notes (Text): 12/23/16 18:11 Patient seen and examined in the intensive care unit. Case discussed with staff in the morning. Status post cardiac No significant coronary artery disease Continue hemodialysis Stable for transfer to floor
--- NOTE | 2016-12-23 11:54 | CP.PCM.PN ---
Subjective - Date & Time of Evaluation Date of Evaluation: 12/23/16 Time of Evaluation: 09:00 - Subjective Subjective: GOING TO [place] FOR PROCEDURE ENTRIES NOTED DR MCLAUGHLIN ON BOARD Objective - Vital Signs/Intake and Output Vital Signs (last 24 hours): Temp Pulse Resp BP Pulse Ox 97.5 F L 73 18 159/56 H 100 12/23/16 07:25 12/23/16 07:25 12/23/16 07:25 12/23/16 06:17 12/23/16 07:25 Intake and Output: 12/23/16 12/23/16 06:59 18:59 Intake Total 348.4 50 Balance 348.4 50 - Medications Medications: Current Medications Aspirin (Aspirin Chewable) 81 mg PO DAILY [facility] Last Admin: 12/23/16 07:16 Dose: 81 mg Calcium Acetate (Phoslo) 667 mg PO BIDCC [facility] Last Admin: 12/22/16 18:03 Dose: 667 mg Clopidogrel Bisulfate (Plavix) 75 mg PO DAILY [facility] Last Admin: 12/23/16 07:15 Dose: 75 mg Collagenase (Santyl) 0 gm TOP DAILY [facility] Last Admin: 12/22/16 09:27 Dose: 1 appl Escitalopram Oxalate (Lexapro) 10 mg PO DAILY [facility] Last Admin: 12/22/16 09:24 Dose: 10 mg Famotidine (Pepcid) 20 mg IVP DAILY [facility] Last Admin: 12/22/16 09:22 Dose: 20 mg Furosemide (Lasix) 40 mg PO DAILY [facility] Last Admin: 12/22/16 09:24 Dose: 40 mg Hydralazine HCl (Apresoline) 25 mg PO Q12 [facility] Last Admin: 12/22/16 22:05 Dose: 25 mg Hydromorphone HCl (Dilaudid) 0.5 mg IVP Q6H PRN PRN Reason: Pain, severe (8-10) Last Admin: 12/21/16 08:19 Dose: 0.5 mg Metronidazole (Flagyl) 250 mg in 50 mls @ 100 mls/hr IVPB Q8 [facility] Stop: 12/25/16 17:31 Last Admin: 12/23/16 05:58 Dose: 100 mls/hr Vancomycin HCl 1 gm/ Sodium (Chloride) 250 mls @ 166.7 mls/hr IVPB MWF [facility] Last Admin: 12/22/16 09:17 Dose: 166.7 mls/hr Cefepime HCl (Maxipime Iv 1 Gm Premix) 1 gm in 50 mls @ 100 mls/hr IVPB Q24H [facility] Last Admin: 12/22/16 18:30 Dose: 100 mls/hr Heparin Sodium/Sodium Chloride (Heparin 25800 Units/250ml 1/2 Normal Saline) 25 ,000 units in 250 mls @ 8.89 mls/hr IV .Q24H PRN; Protocol; 14 UNITS/KG/HR PRN Reason: PROTOCOL Last Admin: 12/22/16 00:35 Dose: 13 units/kg/hr, 8.255 mls/hr Insulin Aspart (Novolog) 0 unit SC Q6H [facility] PRN Reason: Protocol Last Admin: 12/23/16 07:26 Dose: Not Given Losartan Potassium (Cozaar) 100 mg PO DAILY [facility] Last Admin: 12/22/16 09:24 Dose: 100 mg Metolazone (Zaroxolyn) 5 mg PO DAILY [facility] Last Admin: 12/22/16 09:24 Dose: 5 mg Ondansetron HCl (Zofran Inj) 4 mg IVP Q6H PRN PRN Reason: Nausea/Vomiting Last Admin: 12/21/16 17:19 Dose: 4 mg Rosuvastatin Calcium (Crestor) 10 mg PO HS [facility] Last Admin: 12/22/16 22:05 Dose: 10 mg Vitamin B Complex/Vitamin C (Berocca) 1 tab PO DAILY [facility] Last Admin: 12/22/16 09:23 Dose: 1 tab - Labs Labs: 12/23/16 06:22 12/23/16 06:22 PT 10.9 SECONDS (9.7-12.2) 12/20/16 16:07 INR 1.0 12/20/16 16:07 APTT 61 SECONDS (21-34) H 12/23/16 06:22 - Constitutional Appears: Non-toxic, Chronically Ill - Head Exam Head Exam: NORMOCEPHALIC - Eye Exam Eye Exam: PERRL - ENT Exam ENT Exam: Mucous Membranes Dry - Neck Exam Neck Exam: absent: Lymphadenopathy - Respiratory Exam Respiratory Exam: Decreased Breath Sounds - Cardiovascular Exam Cardiovascular Exam: REGULAR RHYTHM - GI/Abdominal Exam GI & Abdominal Exam: Distended, Soft - Rectal Exam Rectal Exam: Deferred - Exam Exam: NORMAL INSPECTION Assessment and Plan (1) Cellulitis of foot Status: Acute (2) Elevated troponin Status: Acute (3) End stage renal disease on dialysis Status: Acute (4) Nausea & vomiting Status: Acute (5) Uncontrolled type 2 diabetes mellitus with hyperglycemia Status: Chronic (6) Cellulitis Status: Acute (7) Diabetes Status: Acute (8) NSTEMI (non-ST elevated myocardial infarction) Status: Acute (9) Wound infection after surgery Status: Acute (10) CAD (coronary artery disease) Status: Chronic (11) CHF (congestive heart failure) Status: Chronic (12) CKD (chronic kidney disease) stage 3, GFR 30-59 ml/min Status: Chronic (13) DM2 (diabetes mellitus, type 2) Status: Chronic (14) Dyslipidemia Status: Chronic
--- NOTE | 2016-12-23 12:41 | CARD ---
APPROVED REPORT EKG Measurement Heart [id number] NM [id number] <Conclusion> Normal sinus rhythm ST & T wave abnormality, consider anterolateral ischemia Prolonged QT Abnormal ECG
--- NOTE | 2016-12-23 12:42 | CARD ---
APPROVED REPORT EKG Measurement Heart [id number] <Conclusion> Normal sinus rhythm Nonspecific T wave abnormality Abnormal ECG
[2016-12-23] MEDS: Cefepime IV 1 gm in Dextrose 1 GM/50 ML BAG IVPB SCH (18:41)
--- NOTE | 2016-12-23 22:35 | CP.PCM.PN ---
Subjective - Date & Time of Evaluation Date of Evaluation: 12/23/16 Time of Evaluation: 17:30 - Subjective Subjective: Medical Attending Note: Patient seen and examined. Patient currently receiving dialysis. Patient had went to [place] for cardiac cath with Dr. Law. Patient reports she feels anxious because there are so many things going on in home and advised her to not worry at this time. Spoke with sale professional digital marketing in hopes to relieve her anxiety. Discussed with Dr. Law, diffuse CAD recommends medical management/ Objective - Vital Signs/Intake and Output Vital Signs (last 24 hours): Temp Pulse Resp BP Pulse Ox 98.2 F 77 12 138/51 L 100 12/23/16 21:00 12/23/16 19:36 12/23/16 19:36 12/23/16 19:36 12/23/16 19:36 Intake and Output: 12/23/16 12/24/16 18:59 06:59 Intake Total 360 100 Balance 360 100 - Medications Medications: Current Medications Alprazolam (Xanax) 0.5 mg PO TTS PRN PRN Reason: Anxiety Aspirin (Aspirin Chewable) 81 mg PO DAILY [facility] Last Admin: 12/23/16 14:19 Dose: Not Given Calcium Acetate (Phoslo) 667 mg PO BIDCC [facility] Last Admin: 12/23/16 18:45 Dose: 667 mg Clopidogrel Bisulfate (Plavix) 75 mg PO DAILY [facility] Last Admin: 12/23/16 10:00 Dose: Not Given Collagenase (Santyl) 0 gm TOP DAILY [facility] Last Admin: 12/22/16 09:27 Dose: 1 appl Escitalopram Oxalate (Lexapro) 10 mg PO DAILY [facility] Last Admin: 12/23/16 18:41 Dose: 10 mg Famotidine (Pepcid) 20 mg IVP DAILY [facility] Last Admin: 12/23/16 18:41 Dose: 20 mg Furosemide (Lasix) 40 mg PO DAILY [facility] Last Admin: 12/23/16 18:41 Dose: 40 mg Hydralazine HCl (Apresoline) 25 mg PO Q12 [facility] Last Admin: 12/22/16 22:05 Dose: 25 mg Hydromorphone HCl (Dilaudid) 0.5 mg IVP Q6H PRN PRN Reason: Pain, severe (8-10) Last Admin: 12/21/16 08:19 Dose: 0.5 mg Metronidazole (Flagyl) 250 mg in 50 mls @ 100 mls/hr IVPB Q8 [facility] Stop: 12/25/16 17:31 Last Admin: 12/23/16 14:40 Dose: Not Given Vancomycin HCl 1 gm/ Sodium (Chloride) 250 mls @ 166.7 mls/hr IVPB MWF [facility] Last Admin: 12/22/16 09:17 Dose: 166.7 mls/hr Cefepime HCl (Maxipime Iv 1 Gm Premix) 1 gm in 50 mls @ 100 mls/hr IVPB Q24H [facility] Last Admin: 12/23/16 18:41 Dose: 100 mls/hr Heparin Sodium/Sodium Chloride (Heparin 22618 Units/250ml 1/2 Normal Saline) 25 ,000 units in 250 mls @ 8.89 mls/hr IV .Q24H PRN; Protocol; 14 UNITS/KG/HR PRN Reason: PROTOCOL Last Admin: 12/22/16 00:35 Dose: 13 units/kg/hr, 8.255 mls/hr Insulin Aspart (Novolog) 0 unit SC Q6H [facility] PRN Reason: Protocol Last Admin: 12/23/16 18:40 Dose: 3 unit Losartan Potassium (Cozaar) 100 mg PO DAILY [facility] Last Admin: 12/22/16 09:24 Dose: 100 mg Metolazone (Zaroxolyn) 5 mg PO DAILY [facility] Last Admin: 12/22/16 09:24 Dose: 5 mg Ondansetron HCl (Zofran Inj) 4 mg IVP Q6H PRN PRN Reason: Nausea/Vomiting Last Admin: 12/21/16 17:19 Dose: 4 mg Rosuvastatin Calcium (Crestor) 10 mg PO HS [facility] Last Admin: 12/22/16 22:05 Dose: 10 mg Vitamin B Complex/Vitamin C (Berocca) 1 tab PO DAILY [facility] Last Admin: 12/22/16 09:23 Dose: 1 tab - Labs Labs: 12/23/16 06:22 12/23/16 06:22 PT 10.9 SECONDS (9.7-12.2) 12/20/16 16:07 INR 1.0 12/20/16 16:07 APTT 61 SECONDS (21-34) H 12/23/16 06:22 - Constitutional Appears: Non-toxic, No Acute Distress - Head Exam Head Exam: NORMAL INSPECTION - Eye Exam Eye Exam: EOMI - ENT Exam ENT Exam: Mucous Membranes Moist - Respiratory Exam Respiratory Exam: NORMAL BREATHING PATTERN. absent: Rales, Rhonchi, Wheezes - Cardiovascular Exam Cardiovascular Exam: REGULAR RHYTHM, +S1, +S2 - GI/Abdominal Exam GI & Abdominal Exam: Soft, Normal Bowel Sounds. absent: Distended, Firm, Guarding, Rigid, Tenderness, Rebound - Extremities Exam Additional comments: erythema improving over b/l lower extremities new dressing over the prior infected right AV site - Neurological Exam Neurological Exam: Alert, Awake, Oriented x3 - Skin Skin Exam: Dry, Intact, Rash (improving over b/l lower extremities), Warm Assessment and Plan - Assessment and Plan (Free Text) Assessment: 1) NSTEMI Admission to ICU Cardiology Consult - Dr. Law - help appreciated ECHO 10/23/16 - there is a small to moderate circumferential pericardial effusion. No evidence of tamponade. The left ventricular systolic function is normal. Elevated left atrial pressure by Tissue Doppler. The right centricular systolic function is normal. There is a trace aortic regurgiation. Mild mitral regurgitation. There is mild to moderate tricuspid regurgiation. Mild pulmonary hypertension (please see full report) F/U ECHO-->pending HgbA1C: 7.0 TSH: 1.09, Lipid panel: T, chol: 178, LDL: 93, HDL: 46 Troponin: 9.7800-->9.0900-->6.5600-->4.7400 EKG - NSR @ 78, left atrial enlargement and nonspecific ST and T wave abnormalities (please see full reporT) Unchanged from prior EKG Risk factors: CAD, PVD, DM, HTN, Age, female RICARDO score: 3 points --> 13% risk at 14 days of: all-cause mortality, new or recurrent MT, or severe recurrent ischemia requiring urgent revascularization Patient is currently on heparin drip. Heparin drip Aspirin 81mg PO daily Plavix 75mg PO daily Crestor 10mg PO HS Discussed with Dr. Law, patient for cardiac cath today-->diffuse CAD--> medical management 2) Hypertension (controlled) Nephro consult - Dr. Ambrose - help appreciated Cardiology Consult - Dr. Law - help appreciated Blood pressure stabilizeD s/p dialysis Tues post cath Holding parameters for home medications: Cozaar 100mg PO daily Hydralazine 25mg PO BID Metolazone 5mg PO daily Lasix 40mg PO daily 3) Fluid Overload Denies. Patient completed dialysis today Blood pressure stabilized Holding parameters for home medications: Cozaar 100mg PO daily Hydralazine 25mg PO BID Metolazone 5mg PO daily Lasix 40mg PO daily Nephro consult - Dr. Ambrose - help appreciated 4) Leukocytosis ID consult - Dr. Wellington - help appreciated White count has normalized Lactic acid: 2.0 Procalcitonin: 0.38 Flagyl 500mg IV Q 8 hours (12/21/16)-->C dif negative Vancomycin 1 gram IV MWF (active since 12/22/16) Cefepime 1 gram IV Q24 hours (active since 12/21/16) CXR 12/20/18 - persistent moderate cardiomegaly, worsening pulmonary venous congestion and left pleural effusion (please see full reporT) Ct abdomen/pelvis (12/20/16): bilateral pleural effusions with basilar consolidation. Degenerative disease within the thoracic spine 12/20/16 foot X ray - no acute fracture or bone destruction. Moderate dorsal soft tissue swelling may represent cellulitis in the appropriate clinical setting (please see full report) Blood cultures (12/20/16): no growth after 3 days X2 Note prior hx/infected of left AV shunt--> Soft tissue lesion, nonspecific (ddx hematoma, seroma, abscess. Clinical correlation and follow-up. Incidental/non- acute findings Arm culture: no growth after 24hours 5) Vomiting Zofran 4mg IVPB Q6H PRN N/V Clear liquid diet 6) Controlled Diabetes a1c: 7.0 (controlled compared to 09/2016) Lipid panel: T, chol: 178, LDL: 93, HDL: 46 Accuchecks QAC and HS Diabetic clear liquid diet Novolog insulin sliding scale Lantus 36u SC QHS 7) ESRD Dialysis TThSat Nephro consult - Dr. 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 Moderate dorsal soft tissue swelling may represent cellulitis in the appropriate clinical setting (please see full report) Patient was just discharged 12/19/16 from hospital per prior ID plan--> Patient was supposed to receive vancomycin IC after each dialysis for [address] Wellington per Fabi Kinc[employer] note Holding vanco for now. Wound care-->order 9) History of CHF (questionable) Cardio consult - Dr. Law - help appreciated ECHO 10/23/16 - there is a small to moderate circumferential pericardial effusion. No evidence of tamponade. The left ventricular systolic function is normal. Elevated left atrial pressure by Tissue Doppler. The right centricular systolic function is normal. There is a trace aortic regurgiation. Mild mitral regurgitation. There is mild to moderate tricuspid regurgiation. Mild pulmonary hypertension (please see full report) F/U repeat ECHO Holding parameters on BP meds: Cozaar 100mg PO daily Hydralazine 25mg PO BID Metolazone 5mg PO daily Lasix 40mg PO daily Aspirin 81mg PO daily Plavix 75mg PO daily 10) Prophylaxis Plavix 75mg PO daily Heparin drip Pepcid 20mg IVP daily Patient at this time is a full code.
[2016-12-24] MEDS: (Novolog) Insulin Aspart, Recombinant 100 u/ml 10 ml vial SC SCH ×4 (00:14→22:44)
[2016-12-24 06:45] LABS: ALB/GLOB RATIO 1.2 (1.0-2.1); ALBUMIN 3.2 g/dL (3.5-5.0); CALCIUM 8.2 mg/dl (8.6-10.4); MAGNESIUM 2.2 mg/dL (1.6-2.3)
[2016-12-24] MEDS: metroNIDAZOLE IV 250mg/50 ml 250 MG/50 ML BAG IVPB SCH ×3 (06:47→22:00)
[2016-12-24] MEDS ORDERED: (Novolog) Insulin Aspart, Recombinant 100 u/ml 10 ml vial SC SCH (07:45)
[2016-12-24] MEDS: Vitamin B Complex/Vitamin C Tab PO SCH (10:36)
[2016-12-24] MEDS: metOLazone 5 MG TAB PO SCH (10:38)
--- NOTE | 2016-12-24 10:55 | CP.CCUPN ---
CCU Subjective - Physician Review Subjective (Free Text): Patient is seen and examined at bedside in the morning. Patient is anxious. Patient reports still feeling a little nauseas at times and has mild discomfort in her left foot. Patient denies chest pain, shortness of breath, abdominal pain, vomiting, fevers, diarrhea, and constipation. Patient is stable for transfer to telemetry. 12/24/16 10:52 CCU Objective - Vital Signs / Intake & Output Vital Signs (Last 4 hours): Vital Signs BP 12/24/16 10:36 154/47 H Intake and Output (Last 8hrs): Intake & Output 12/23/16 12/24/16 12/24/16 22:59 06:59 14:59 Intake Total 210 300 Balance 210 300 Intake: Intake, IV Amount 100 Right Forearm 100 Oral 210 200 - Physical Exam Head: Positive for: Atraumatic, Normocephalic Extroacular Muscles: Positive for: EOMI Conjunctiva: Positive for: Normal Mouth: Positive for: Moist Mucous Membranes Neck: Positive for: Normal Range of Motion Respiratory/Chest: Positive for: Clear to Auscultation. Negative for: Wheezes, Rhonchi Cardiovascular: Positive for: Regular Rate and Rhythm, Normal S1, S2 Abdomen: Positive for: Normal Bowel Sounds. Negative for: Tenderness Upper Extremity: Positive for: Normal Inspection. Negative for: Edema Lower Extremity: Positive for: Normal Inspection. Negative for: Edema Skin: Positive for: Warm, Dry, Other (stage 2 ulcer on left heel, banadage; lesion on left arm AC/AV site- bandaged) Psychiatric: Positive for: Alert, Oriented x 3, Normal Affect, Depressed Mood - Medications Active Medications: Active Medications Generic Name Dose Route Start Last Admin Trade Name Freq PRN Reason Stop Dose Admin Alprazolam 0.5 mg 12/23/16 18:23 Xanax PO TTS PRN Anxiety Aspirin 81 mg 12/21/16 10:00 12/24/16 10:36 Aspirin Chewable PO 81 mg DAILY [facility] Administration Calcium Acetate 667 mg 12/21/16 08:00 12/24/16 10:35 Phoslo PO 667 mg BIDCC [facility] Administration Clopidogrel Bisulfate 75 mg 12/20/16 18:50 12/24/16 10:35 Plavix PO 75 mg DAILY [facility] Administration Collagenase 0 gm 12/21/16 10:00 12/22/16 09:27 Santyl TOP 1 appl DAILY [facility] Administration Escitalopram Oxalate 10 mg 12/21/16 10:00 12/24/16 10:35 Lexapro PO 10 mg DAILY [facility] Administration Famotidine 20 mg 12/20/16 18:00 12/24/16 10:37 Pepcid IVP 20 mg DAILY [facility] Administration Furosemide 40 mg 12/21/16 10:00 12/24/16 10:36 Lasix PO 40 mg DAILY [facility] Administration Hydralazine HCl 25 mg 12/22/16 22:00 12/24/16 10:36 Apresoline PO 25 mg Q12 [facility] Administration Metronidazole 250 mg in 50 mls @ 100 mls/hr 12/21/16 14:00 12/24/16 06:47 Flagyl IVPB 12/25/16 17:31 100 mls/hr Q8 [facility] Administration Vancomycin HCl 1 gm/ Sodium 250 mls @ 166.7 mls/hr 12/22/16 09:00 12/24/16 10 :37 Chloride IVPB 166.7 mls/hr MWF [facility] Administration Cefepime HCl 1 gm in 50 mls @ 100 mls/hr 12/21/16 17:45 12/23/16 18:41 Maxipime Iv 1 Gm Premix IVPB 100 mls/hr Q24H [facility] Administration Insulin Aspart 0 unit 12/24/16 09:27 Novolog KS ACHS [facility] Protocol Losartan Potassium 100 mg 12/21/16 09:10 12/24/16 10:35 Cozaar PO 100 mg DAILY [facility] Administration Metolazone 5 mg 12/21/16 10:00 12/24/16 10:38 Zaroxolyn PO 5 mg DAILY [facility] Administration Ondansetron HCl 4 mg 12/20/16 17:19 12/21/16 17:19 Zofran Inj IVP 4 mg Q6H PRN Administration Nausea/Vomiting Rosuvastatin Calcium 10 mg 12/20/16 22:00 12/23/16 23:04 Crestor PO 10 mg HS [facility] Administration Vitamin B Complex/Vitamin C 1 tab 12/21/16 10:00 12/24/16 10:36 Berocca PO 1 tab DAILY [facility] Administration - Patient Studies Lab Studies: Microbiology Studies 12/20/16 16:20 Blood Culture - Preliminary Blood-Venous NO GROWTH AFTER 3 DAYS 12/21/16 22:30 Ova and Parasite Concentrate Exam - Final Stool 12/22/16 Unknown Gram Stain - Final Arm - Left Wound Culture - Preliminary NO GROWTH AFTER 24 HOURS Lab Studies 12/24/16 12/24/16 12/24/16 Range/Units 08:32 08:30 06:21 Sodium 131 L (132-148) mmol/L Potassium 4.5 (3.6-5.2) mmol/L Chloride 92 L (98-107) mmol/L Carbon Dioxide 24 (22-30) mmol/L Anion Gap 20 (10-20) BUN 17 (7-17) mg/dL Creatinine 4.0 H (0.7-1.2) MG/DL Est GFR ( Amer) 13 Est GFR (Non-Af Amer) 11 POC Glucose (mg/dL) 445 H* 446 H* (65-110) mg/dL Random Glucose 272 H (65-105) mg/dL Calcium 8.2 L (8.6-10.4) mg/dl Phosphorus 5.2 H (2.5-4.5) mg/dL Magnesium 2.2 (1.6-2.3) mg/dL Total Bilirubin 0.4 (0.2-1.3) mg/dL AST 22 (14-36) U/L ALT 29 (9-52) U/L Alkaline Phosphatase 91 (38-126) U/L Total Protein 5.8 L (6.3-8.3) g/dL Albumin 3.2 L (3.5-5.0) g/dL Globulin 2.6 (2.2-3.9) gm/dL Albumin/Globulin Ratio 1.2 (1.0-2.1) 12/23/16 12/23/16 12/23/16 Range/Units 23:55 21:19 16:46 Sodium (132-148) mmol/L Potassium (3.6-5.2) mmol/L Chloride (98-107) mmol/L Carbon Dioxide (22-30) mmol/L Anion Gap (10-20) BUN (7-17) mg/dL Creatinine (0.7-1.2) MG/DL Est GFR ( Amer) Est GFR (Non-Af Amer) POC Glucose (mg/dL) 446 H* 317 H 240 H (65-110) mg/dL Random Glucose (65-105) mg/dL Calcium (8.6-10.4) mg/dl Phosphorus (2.5-4.5) mg/dL Magnesium (1.6-2.3) mg/dL Total Bilirubin (0.2-1.3) mg/dL AST (14-36) U/L ALT (9-52) U/L Alkaline Phosphatase (38-126) U/L Total Protein (6.3-8.3) g/dL Albumin (3.5-5.0) g/dL Globulin (2.2-3.9) gm/dL Albumin/Globulin Ratio (1.0-2.1) 12/23/16 Range/Units 13:01 Sodium (132-148) mmol/L Potassium (3.6-5.2) mmol/L Chloride (98-107) mmol/L Carbon Dioxide (22-30) mmol/L Anion Gap (10-20) BUN (7-17) mg/dL Creatinine (0.7-1.2) MG/DL Est GFR ( Amer) Est GFR (Non-Af Amer) POC Glucose (mg/dL) 389 H (65-110) mg/dL Random Glucose (65-105) mg/dL Calcium (8.6-10.4) mg/dl Phosphorus (2.5-4.5) mg/dL Magnesium (1.6-2.3) mg/dL Total Bilirubin (0.2-1.3) mg/dL AST (14-36) U/L ALT (9-52) U/L Alkaline Phosphatase (38-126) U/L Total Protein (6.3-8.3) g/dL Albumin (3.5-5.0) g/dL Globulin (2.2-3.9) gm/dL Albumin/Globulin Ratio (1.0-2.1) Laboratory Results - last 24 hr 12/23/16 12/23/16 12/23/16 13:01 16:46 21:19 Sodium Potassium Chloride Carbon Dioxide Anion Gap BUN Creatinine Est GFR ( Amer) Est GFR (Non-Af Amer) POC Glucose (mg/dL) 389 H 240 H 317 H Random Glucose Calcium Phosphorus Magnesium Total Bilirubin AST ALT Alkaline Phosphatase Total Protein Albumin Globulin Albumin/Globulin Ratio 12/23/16 12/24/16 12/24/16 23:55 06:21 08:30 Sodium 131 L Potassium 4.5 Chloride 92 L Carbon Dioxide 24 Anion Gap 20 BUN 17 Creatinine 4.0 H Est GFR ( Amer) 13 Est GFR (Non-Af Amer) 11 POC Glucose (mg/dL) 446 H* 446 H* Random Glucose 272 H Calcium 8.2 L Phosphorus 5.2 H Magnesium 2.2 Total Bilirubin 0.4 AST 22 ALT 29 Alkaline Phosphatase 91 Total Protein 5.8 L Albumin 3.2 L Globulin 2.6 Albumin/Globulin Ratio 1.2 12/24/16 08:32 Sodium Potassium Chloride Carbon Dioxide Anion Gap BUN Creatinine Est GFR ( Amer) Est GFR (Non-Af Amer) POC Glucose (mg/dL) 445 H* Random Glucose Calcium Phosphorus Magnesium Total Bilirubin AST ALT Alkaline Phosphatase Total Protein Albumin Globulin Albumin/Globulin Ratio Fingerstick Blood Sugar Results: 108 Review of Systems - Constitutional Constitutional: absent: Fever - Cardiovascular Cardiovascular: absent: Chest Pain, Dyspnea, Edema, Lightheadedness - Respiratory Respiratory: absent: Dyspnea - Gastrointestinal Gastrointestinal: Nausea. absent: Abdominal Pain, Constipation, Diarrhea, Vomiting - Genitourinary Genitourinary: absent: Dysuria - Neurological Neurological: absent: Dizziness Critical Care Progress Note - Nutrition Nutrition: Nutrition Category Date Time Status Renal Diet [DIET] Diets 12/21/16 Breakfast Active Assessment/Plan - Assessment and Plan (Free Text) Assessment: 71 year old female with medical history of ESRD, HTN, CHF, DM, anemia, and back pain, presents with intractable vomiting. Patient is stable for transfer to Telemetry. Neuro: - Alert, oriented x3 Pulm: - Chest Xray: Persistent moderate cardiomegaly, worsening pulmonary venous congestion and left pleural effusion. CV: - Troponin x 3: 9.0900, 6.5600, 4.7400 - Chest Xray: Persistent moderate cardiomegaly, worsening pulmonary venous congestion and left pleural effusion. - Echo from 10/23/16: small to moderate circumferential pericardial effusions; Elevated LA pressure; trace aortic regurg; mild mitral regurg; mild to moderate tricuspid regurg; RV systolic pressure is estimated at -44mmHg compatible with mild pulmonary hypertension. - Cardiology consulted, Dr. Law. - Cardiac cath 12/23/16, at [facility]-- diffuse coronary artery disease. Patient will be medically managed as per Dr. Law. Endo: - Diabetes - Accuchecks - HgbA1c: 7.0 - Blood glucose 446 on 12/24, increased ISS to high protocol Heme: - Monitor H/H GI: - Nausea and vomiting: Zofran - Abdomen/Pelvic CT: B/L pleural effusions with left basilar consolidation; degenerative disease within thoracic spine. Renal: - ESRD, Dialysis TTS - Will receive dialysis after cath procedure - Director Of Security consulted, Dr. Ambrose, help appreciated - Monitor BUN/Cr Skin: - Left foot heel ulcer - Foot Xray: no acute fracture or bone destruction; moderate dorsal soft tissue swelling, may represent cellulitis - Wound care consult - Wound culture: no growth after 24hrs - Podiatry consulted: Dr. Stevens, help appreciated. - Management of left heel ulcer as per podiatry - Left arm AC, AV graft site: r/o abscess - Ultrasound of LUE: soft tissue lesion, 0.8x0.5x0.5cm, hypoechoic, nonspecific; ddx: hematoma, seroma, abscess; clinical correlation and f/u recommended ID: - WBC: 13.3 on 12/21; 9.6 on 12/22 - Blood culture: negative after 24hr - Flagyl 500mg IV Q8 and Cefepime 1gm IV - Vanco 1gm IV MWF - ID consulted- Dr. Wellington, help appreciated - Wound culture of left heel ulcer: no growth after 24hrs - Wound care consulted - Left arm AC, AV graft site: r/o abscess - Ultrasound of LUE: soft tissue lesion, 0.8x0.5x0.5cm, hypoechoic, nonspecific; ddx: hematoma, seroma, abscess; clinical correlation and f/u recommended Prophylaxis - DVT: Plavix 75mg PO daily, ASA 81, (discontinued Heparin drip on 12/24) - GI: Pepcid 20mg IV Daily
[2016-12-24] MEDS ORDERED: (Lantus) Insulin Glargine, Recombinant SC ONE ×2 (11:48→22:00)
--- NOTE | 2016-12-24 12:11 | CP.PCM.PN ---
Subjective - Date & Time of Evaluation Date of Evaluation: 12/24/16 Time of Evaluation: 12:07 - Subjective Subjective: 71 year old female was seen in the ICU for left heel non-healing wound. She states that she does not have much pain to her left foot today. She has an offloading boot to her left LE. Patient denies any recent N/V/F/C/CP/SOB. Patient denies any further pedal complaints at this time. Objective - Vital Signs/Intake and Output Vital Signs (last 24 hours): Temp Pulse Resp BP Pulse Ox 98.2 F 69 17 154/47 H 94 L 12/24/16 05:00 12/24/16 11:00 12/24/16 11:00 12/24/16 10:36 12/24/16 09:36 Intake and Output: 12/24/16 12/24/16 06:59 18:59 Intake Total 400 370 Balance 400 370 - Medications Medications: Current Medications Alprazolam (Xanax) 0.5 mg PO TTS PRN PRN Reason: Anxiety Aspirin (Aspirin Chewable) 81 mg PO DAILY [facility] Last Admin: 12/24/16 10:36 Dose: 81 mg Calcium Acetate (Phoslo) 667 mg PO BIDCC [facility] Last Admin: 12/24/16 10:35 Dose: 667 mg Clopidogrel Bisulfate (Plavix) 75 mg PO DAILY [facility] Last Admin: 12/24/16 10:35 Dose: 75 mg Collagenase (Santyl) 0 gm TOP DAILY [facility] Last Admin: 12/22/16 09:27 Dose: 1 appl Escitalopram Oxalate (Lexapro) 10 mg PO DAILY [facility] Last Admin: 12/24/16 10:35 Dose: 10 mg Famotidine (Pepcid) 20 mg IVP DAILY [facility] Last Admin: 12/24/16 10:37 Dose: 20 mg Furosemide (Lasix) 40 mg PO DAILY [facility] Last Admin: 12/24/16 10:36 Dose: 40 mg Hydralazine HCl (Apresoline) 25 mg PO Q12 [facility] Last Admin: 12/24/16 10:36 Dose: 25 mg Metronidazole (Flagyl) 250 mg in 50 mls @ 100 mls/hr IVPB Q8 [facility] Stop: 12/25/16 17:31 Last Admin: 12/24/16 06:47 Dose: 100 mls/hr Vancomycin HCl 1 gm/ Sodium (Chloride) 250 mls @ 166.7 mls/hr IVPB MWF [facility] Last Admin: 12/24/16 10:37 Dose: 166.7 mls/hr Cefepime HCl (Maxipime Iv 1 Gm Premix) 1 gm in 50 mls @ 100 mls/hr IVPB Q24H [facility] Last Admin: 12/23/16 18:41 Dose: 100 mls/hr Insulin Aspart (Novolog) 0 unit SC ACHS [facility] PRN Reason: Protocol Losartan Potassium (Cozaar) 100 mg PO DAILY [facility] Last Admin: 12/24/16 10:35 Dose: 100 mg Metolazone (Zaroxolyn) 5 mg PO DAILY [facility] Last Admin: 12/24/16 10:38 Dose: 5 mg Ondansetron HCl (Zofran Inj) 4 mg IVP Q6H PRN PRN Reason: Nausea/Vomiting Last Admin: 12/21/16 17:19 Dose: 4 mg Rosuvastatin Calcium (Crestor) 10 mg PO HS [facility] Last Admin: 12/23/16 23:04 Dose: 10 mg Vitamin B Complex/Vitamin C (Berocca) 1 tab PO DAILY [facility] Last Admin: 12/24/16 10:36 Dose: 1 tab - Labs Labs: 12/23/16 06:22 12/24/16 06:21 PT 10.9 SECONDS (9.7-12.2) 12/20/16 16:07 INR 1.0 12/20/16 16:07 APTT 61 SECONDS (21-34) H 12/23/16 06:22 - Constitutional Appears: Non-toxic, No Acute Distress - Extremities Exam Additional comments: Lower extremity focused exam: Vasc: DP and PT pulses palpable 1/4 b/l. CFT < 3 seconds to digits 1-10. Skin temperature warm to warm from proximal to distal. Moderate pitting edema noted to lower extremity Neuro: Epicritic and protective sensation grossly intact b/l Derm: Ulceration seen at lateral and plantar asepct of the left foot, the base of the ulceration is eschar with hyperkeratotic rim. No purulent drainage, malodor, undermining, tracking, periwound erythema or other clinical signs of infection noted to the area. HErythematous skin changes noted to anterior shins b/l (possible hemosiderin deposition). No other open wounds, lesions, maceration , xerosis or abnormal pigmentation noted at this time. MSK: Mild POP noted to ulcer site of left foot - Neurological Exam Neurological Exam: Alert, Awake, Oriented x3 - Psychiatric Exam Psychiatric exam: Normal Affect, Normal Mood Assessment and Plan - Assessment and Plan (Free Text) Assessment: 71 year old female with left foot ulcer secondary to DM, ESRD, CHF and CKD Plan: Patient was seen and evaluated at bedside Discussed in detail with attending, Dr. Stevens Charts, labs and vitals reviewed Wound dressed with santyl 4x4 gauze and kerlix cont. prevlon offloading boots placed Continue with abx per ID Podiatry will continue to follow while in house
[2016-12-24] MEDS: Collagenase 250 Units/gm Ointment(30 gm) TOP SCH (12:14)
--- NOTE | 2016-12-24 17:03 | CP.PCM.PN ---
<Thu Moss - Last Filed: 12/24/16 17:03> Subjective - Date & Time of Evaluation Date of Evaluation: 12/24/16 Time of Evaluation: 10:00 - Subjective Subjective: PGY-2 Resident Progress Note for Dr. Myrick Patient seen and examined in ICU bed #9. Patient's blood glucose was elevated in the 400s overnight. Sliding scale was increased and 20 units of lantus was given prior to lunch. Patient complains of left foot pain and denies any other discomfort. Patient denies headache, fever, chills, shortness of breath, chest pain, abdominal pain, nausea, vomiting, diarrhea, or urinary symptoms. Objective - Vital Signs/Intake and Output Vital Signs (last 24 hours): Temp Pulse Resp BP Pulse Ox 98.2 F 59 L 13 133/88 100 12/24/16 05:00 12/24/16 15:36 12/24/16 15:36 12/24/16 15:36 12/24/16 15:36 Intake and Output: 12/24/16 12/24/16 06:59 18:59 Intake Total 400 370 Balance 400 370 - Medications Medications: Current Medications Alprazolam (Xanax) 0.5 mg PO TTS PRN PRN Reason: Anxiety Aspirin (Aspirin Chewable) 81 mg PO DAILY [facility] Last Admin: 12/24/16 10:36 Dose: 81 mg Calcium Acetate (Phoslo) 667 mg PO BIDCC [facility] Last Admin: 12/24/16 10:35 Dose: 667 mg Clopidogrel Bisulfate (Plavix) 75 mg PO DAILY [facility] Last Admin: 12/24/16 10:35 Dose: 75 mg Collagenase (Santyl) 0 gm TOP DAILY [facility] Last Admin: 12/24/16 12:14 Dose: 1 appl Escitalopram Oxalate (Lexapro) 10 mg PO DAILY [facility] Last Admin: 12/24/16 10:35 Dose: 10 mg Famotidine (Pepcid) 20 mg IVP DAILY [facility] Last Admin: 12/24/16 10:37 Dose: 20 mg Furosemide (Lasix) 40 mg PO DAILY [facility] Last Admin: 12/24/16 10:36 Dose: 40 mg Hydralazine HCl (Apresoline) 25 mg PO Q12 [facility] Last Admin: 12/24/16 10:36 Dose: 25 mg Metronidazole (Flagyl) 250 mg in 50 mls @ 100 mls/hr IVPB Q8 [facility] Stop: 12/25/16 17:31 Last Admin: 12/24/16 14:07 Dose: 100 mls/hr Vancomycin HCl 1 gm/ Sodium (Chloride) 250 mls @ 166.7 mls/hr IVPB MWF [facility] Last Admin: 12/24/16 10:37 Dose: 166.7 mls/hr Cefepime HCl (Maxipime Iv 1 Gm Premix) 1 gm in 50 mls @ 100 mls/hr IVPB Q24H [facility] Last Admin: 12/23/16 18:41 Dose: 100 mls/hr Insulin Aspart (Novolog) 0 unit SC ACHS [facility] PRN Reason: Protocol Last Admin: 12/24/16 12:13 Dose: 12 unit Insulin Glargine (Lantus) 30 unit SC ONE Stop: 12/24/16 22:01 Losartan Potassium (Cozaar) 100 mg PO DAILY [facility] Last Admin: 12/24/16 10:35 Dose: 100 mg Metolazone (Zaroxolyn) 5 mg PO DAILY [facility] Last Admin: 12/24/16 10:38 Dose: 5 mg Ondansetron HCl (Zofran Inj) 4 mg IVP Q6H PRN PRN Reason: Nausea/Vomiting Last Admin: 12/21/16 17:19 Dose: 4 mg Rosuvastatin Calcium (Crestor) 10 mg PO [facility] Last Admin: 12/23/16 23:04 Dose: 10 mg Vitamin B Complex/Vitamin C (Berocca) 1 tab PO DAILY [facility] Last Admin: 12/24/16 10:36 Dose: 1 tab - Labs Labs: 12/23/16 06:22 12/24/16 06:21 PT 10.9 SECONDS (9.7-12.2) 12/20/16 16:07 INR 1.0 12/20/16 16:07 APTT 61 SECONDS (21-34) H 12/23/16 06:22 - Constitutional Appears: Well, Non-toxic, Chronically Ill - Head Exam Head Exam: ATRAUMATIC, NORMAL INSPECTION, NORMOCEPHALIC - Eye Exam Eye Exam: EOMI, Normal appearance - ENT Exam ENT Exam: Mucous Membranes Moist - Neck Exam Neck Exam: Full ROM, Normal Inspection. absent: Lymphadenopathy - Respiratory Exam Respiratory Exam: Clear to Ausculation Bilateral, NORMAL BREATHING PATTERN. absent: Wheezes, Respiratory Distress - Cardiovascular Exam Cardiovascular Exam: REGULAR RHYTHM, +S1, +S2. absent: Murmur - GI/Abdominal Exam GI & Abdominal Exam: Soft, Normal Bowel Sounds. absent: Tenderness - Extremities Exam Additional comments: bilateral lower extremity erythema - Neurological Exam Neurological Exam: Alert, Awake, Normal Gait, Oriented x3 - Psychiatric Exam Psychiatric exam: Normal Affect, Normal Mood - Skin Skin Exam: Dry, Warm Assessment and Plan - Assessment and Plan (Free Text) Assessment: 1) NSTEMI Telemetry patient in ICU Follow cardiology recommendations ECHO 10/23/16 - there is a small to moderate circumferential pericardial effusion. No evidence of tamponade. The left ventricular systolic function is normal. Elevated left atrial pressure by Tissue Doppler. The right centricular systolic function is normal. There is a trace aortic regurgiation. Mild mitral regurgitation. There is mild to moderate tricuspid regurgiation. Mild pulmonary hypertension (please see full report) HgbA1C: 7.0 TSH: 1.09, Lipid panel: T, chol: 178, LDL: 93, HDL: 46 Troponin: 9.7800-->9.0900-->6.5600-->4.7400 EKG - NSR @ 78, left atrial enlargement and nonspecific ST and T wave abnormalities (please see full report) Unchanged from prior EKG Risk factors: CAD, PVD, DM, HTN, Age, female RICARDO score: 3 points --> 13% risk at 14 days of: all-cause mortality, new or recurrent [place], or severe recurrent ischemia requiring urgent revascularization Heparin drip Aspirin 81mg PO daily Plavix 75mg PO daily Crestor 10mg PO HS Cardiac cath performed by Dr. Law on 12/25/15 in [place], recommends medical management 2) Hypertension (controlled) Nephro consult - Dr. Ambrose - help appreciated Follow cardiology recommendations Blood pressure stable s/p dialysis Tues post cath Holding parameters for home medications: Cozaar 100mg PO daily Hydralazine 25mg PO BID Metolazone 5mg PO daily Lasix 40mg PO daily 3) Fluid Overload Denies. Patient completed dialysis today Blood pressure stabilized Hold if SBP<100 Cozaar 100mg PO daily Hydralazine 25mg PO BID Metolazone 5mg PO daily Lasix 40mg PO daily Nephro consult - Dr. Ambrose - help appreciated 4) Leukocytosis ID consult - Dr. Wellington - help appreciated Afebrile, WBC has normalized Lactic acid: 2.0 Procalcitonin: 0.38 Flagyl 500mg IV Q 8 hours (12/21/16)-->C dif negative Vancomycin 1 gram IV MWF (active since 12/22/16) Cefepime 1 gram IV Q24 hours (active since 12/21/16) CXR 12/20/18 - persistent moderate cardiomegaly, worsening pulmonary venous congestion and left pleural effusion (please see full report) Ct abdomen/pelvis (12/20/16): bilateral pleural effusions with basilar consolidation. Degenerative disease within the thoracic spine 12/20/16 foot X ray - no acute fracture or bone destruction. Moderate dorsal soft tissue swelling may represent cellulitis in the appropriate clinical setting (please see full report) Blood cultures (12/20/16): no growth after 3 days X2 Note prior hx/infected of left AV shunt--> Soft tissue lesion, nonspecific (ddx hematoma, seroma, abscess. Clinical correlation and follow-up. Incidental/non- acute findings Left arm culture: Coagulase Negative Staphylococcus 5) Vomiting Zofran 4mg IVPB Q6H PRN N/V Clear liquid diet 6) Controlled Diabetes a1c: 7.0 (controlled compared to 09/2016) Lipid panel: T, chol: 178, LDL: 93, HDL: 46 Accuchecks QAC and HS Diabetic clear liquid diet Novolog insulin sliding scale-High Lantus 20u and 30u today, will adjust accordingly tomorrow 7) ESRD Dialysis TThSat Nephro consult - Dr. Ambrose - help appreciated 8) B/L Cellulitis; Left heel wound Continue Vancomycin 1 gram IV MWF (active since 12/22/16) Follow podiatry recommendations 12/20/16 foot X ray - no acute fracture or bone destruction. Moderate dorsal soft tissue swelling may represent cellulitis in the appropriate clinical setting (please see full report) Patient was just discharged 12/19/16 from hospital per prior ID plan--> Patient was supposed to receive vancomycin IC after each dialysis for 3 weeks as per Continue Wound care Offloading boots 9) History of CHF (questionable) Cardio consult - Dr. Law - help appreciated ECHO 10/23/16 - there is a small to moderate circumferential pericardial effusion. No evidence of tamponade. The left ventricular systolic function is normal. Elevated left atrial pressure by Tissue Doppler. The right centricular systolic function is normal. There is a trace aortic regurgiation. Mild mitral regurgitation. There is mild to moderate tricuspid regurgiation. Mild pulmonary hypertension (please see full report) Hold if SBP<100 Cozaar 100mg PO daily Hydralazine 25mg PO BID Metolazone 5mg PO daily Lasix 40mg PO daily 10) Prophylactic measures Plavix 75mg, ASA PO daily Pepcid 20mg IVP daily Full code Continue PT <Benson Myrick Jr. - Last Filed: 12/29/16 12:16> Objective - Vital Signs/Intake and Output Vital Signs (last 24 hours): Temp Pulse Resp BP Pulse Ox 98.9 F 68 18 147/98 H 98 12/26/16 13:00 12/26/16 13:00 12/26/16 13:00 12/26/16 13:00 12/26/16 13:00 - Labs Labs: 12/26/16 06:19 12/26/16 06:17 PT 10.9 SECONDS (9.7-12.2) 12/20/16 16:07 INR 1.0 12/20/16 16:07 APTT 61 SECONDS (21-34) H 12/23/16 06:22 Attending/Attestation - Attestation I have personally seen and examined this patient.: Yes I have fully participated in the care of the patient.: Yes I have reviewed all pertinent clinical information, including history, physical exam and plan: Yes Notes (Text): 12/29/16 12:16 Agree with the resident note and findings
--- NOTE | 2016-12-24 18:22 | CARD ---
APPROVED REPORT EKG Measurement Heart [id number] <Conclusion> Normal sinus rhythm Possible Left atrial enlargement Low voltage QRS Nonspecific T wave abnormality Abnormal ECG
[2016-12-24] MEDS: Cefepime IV 1 gm in Dextrose 1 GM/50 ML BAG IVPB SCH (19:01)
--- NOTE | 2016-12-24 19:10 | CP.PCM.PN ---
Subjective - Date & Time of Evaluation Date of Evaluation: 12/24/16 Time of Evaluation: 18:50 - Subjective Subjective: no chest pain or dyspnea. Objective - Vital Signs/Intake and Output Vital Signs (last 24 hours): Temp Pulse Resp BP Pulse Ox 98.4 F 58 L 15 133/88 100 12/24/16 16:00 12/24/16 17:00 12/24/16 17:00 12/24/16 15:36 12/24/16 17:00 Intake and Output: 12/24/16 12/25/16 18:59 06:59 Intake Total 370 Balance 370 - Medications Medications: Current Medications Alprazolam (Xanax) 0.5 mg PO TTS PRN PRN Reason: Anxiety Aspirin (Aspirin Chewable) 81 mg PO DAILY [facility] Last Admin: 12/24/16 10:36 Dose: 81 mg Calcium Acetate (Phoslo) 667 mg PO BIDCC [facility] Last Admin: 12/24/16 17:20 Dose: 667 mg Clopidogrel Bisulfate (Plavix) 75 mg PO DAILY [facility] Last Admin: 12/24/16 10:35 Dose: 75 mg Collagenase (Santyl) 0 gm TOP DAILY [facility] Last Admin: 12/24/16 12:14 Dose: 1 appl Escitalopram Oxalate (Lexapro) 10 mg PO DAILY [facility] Last Admin: 12/24/16 10:35 Dose: 10 mg Famotidine (Pepcid) 20 mg IVP DAILY [facility] Last Admin: 12/24/16 10:37 Dose: 20 mg Furosemide (Lasix) 40 mg PO DAILY [facility] Last Admin: 12/24/16 10:36 Dose: 40 mg Hydralazine HCl (Apresoline) 25 mg PO Q12 [facility] Last Admin: 12/24/16 10:36 Dose: 25 mg Metronidazole (Flagyl) 250 mg in 50 mls @ 100 mls/hr IVPB Q8 [facility] Stop: 12/25/16 17:31 Last Admin: 12/24/16 14:07 Dose: 100 mls/hr Vancomycin HCl 1 gm/ Sodium (Chloride) 250 mls @ 166.7 mls/hr IVPB MWF [facility] Last Admin: 12/24/16 10:37 Dose: 166.7 mls/hr Cefepime HCl (Maxipime Iv 1 Gm Premix) 1 gm in 50 mls @ 100 mls/hr IVPB Q24H [facility] Last Admin: 12/24/16 19:01 Dose: 100 mls/hr Insulin Aspart (Novolog) 0 unit SC ACHS [facility] PRN Reason: Protocol Last Admin: 12/24/16 17:20 Dose: 8 unit Insulin Glargine (Lantus) 30 unit SC HS [facility] Stop: 12/24/16 22:01 Losartan Potassium (Cozaar) 100 mg PO DAILY [facility] Last Admin: 12/24/16 10:35 Dose: 100 mg Metolazone (Zaroxolyn) 5 mg PO DAILY [facility] Last Admin: 12/24/16 10:38 Dose: 5 mg Ondansetron HCl (Zofran Inj) 4 mg IVP Q6H PRN PRN Reason: Nausea/Vomiting Last Admin: 12/21/16 17:19 Dose: 4 mg Rosuvastatin Calcium (Crestor) 10 mg PO HS [facility] Last Admin: 12/23/16 23:04 Dose: 10 mg Vitamin B Complex/Vitamin C (Berocca) 1 tab PO DAILY [facility] Last Admin: 12/24/16 10:36 Dose: 1 tab - Labs Labs: 12/23/16 06:22 12/24/16 06:21 PT 10.9 SECONDS (9.7-12.2) 12/20/16 16:07 INR 1.0 12/20/16 16:07 APTT 61 SECONDS (21-34) H 12/23/16 06:22 - Constitutional Appears: Chronically Ill - Head Exam Head Exam: NORMAL INSPECTION - Eye Exam Eye Exam: Normal appearance - ENT Exam ENT Exam: Mucous Membranes Moist - Neck Exam Neck Exam: Full ROM - Respiratory Exam Respiratory Exam: Decreased Breath Sounds - Cardiovascular Exam Cardiovascular Exam: REGULAR RHYTHM - GI/Abdominal Exam GI & Abdominal Exam: Normal Bowel Sounds - Rectal Exam Rectal Exam: Deferred - Extremities Exam Extremities Exam: Pedal Edema - Back Exam Back Exam: NORMAL INSPECTION - Neurological Exam Neurological Exam: Alert - Psychiatric Exam Psychiatric exam: Normal Affect - Skin Skin Exam: Normal Color Assessment and Plan (1) NSTEMI (non-ST elevated myocardial infarction) Assessment & Plan: occluded RCA (small vessel). recommend medical therapy Status: Acute (2) DM2 (diabetes mellitus, type 2) Assessment & Plan: aggressive control Status: Chronic (3) Hypertension Assessment & Plan: controlled. Status: Chronic
--- NOTE | 2016-12-24 21:55 | CARD ---
APPROVED REPORT EKG Measurement Heart [id number] <Conclusion> Normal sinus rhythm Possible Left atrial enlargement Nonspecific ST and T wave abnormality Abnormal ECG
--- NOTE | 2016-12-24 23:16 | CP.PCM.PN ---
Subjective - Date & Time of Evaluation Date of Evaluation: 12/24/16 Time of Evaluation: 15:00 - Subjective Subjective: SEEN ON RENAL F/U SEEN ON HD FEELS BETTER S/P C CATH .. SMALL VESSEL DISEASE Objective - Vital Signs/Intake and Output Vital Signs (last 24 hours): Temp Pulse Resp BP Pulse Ox 98.2 F 58 L 12 105/37 L 97 12/24/16 21:00 12/24/16 19:37 12/24/16 19:37 12/24/16 19:37 12/24/16 19:37 Intake and Output: 12/24/16 12/25/16 18:59 06:59 Intake Total 370 Balance 370 - Medications Medications: Current Medications Alprazolam (Xanax) 0.5 mg PO TTS PRN PRN Reason: Anxiety Aspirin (Aspirin Chewable) 81 mg PO DAILY [facility] Last Admin: 12/24/16 10:36 Dose: 81 mg Calcium Acetate (Phoslo) 667 mg PO BIDCC [facility] Last Admin: 12/24/16 17:20 Dose: 667 mg Clopidogrel Bisulfate (Plavix) 75 mg PO DAILY [facility] Last Admin: 12/24/16 10:35 Dose: 75 mg Collagenase (Santyl) 0 gm TOP DAILY [facility] Last Admin: 12/24/16 12:14 Dose: 1 appl Escitalopram Oxalate (Lexapro) 10 mg PO DAILY [facility] Last Admin: 12/24/16 10:35 Dose: 10 mg Famotidine (Pepcid) 20 mg IVP DAILY [facility] Last Admin: 12/24/16 10:37 Dose: 20 mg Furosemide (Lasix) 40 mg PO DAILY [facility] Last Admin: 12/24/16 10:36 Dose: 40 mg Hydralazine HCl (Apresoline) 25 mg PO Q12 [facility] Last Admin: 12/24/16 22:56 Dose: 25 mg Metronidazole (Flagyl) 250 mg in 50 mls @ 100 mls/hr IVPB Q8 [facility] Stop: 12/25/16 17:31 Last Admin: 12/24/16 22:00 Dose: 100 mls/hr Vancomycin HCl 1 gm/ Sodium (Chloride) 250 mls @ 166.7 mls/hr IVPB MWF [facility] Last Admin: 12/24/16 10:37 Dose: 166.7 mls/hr Cefepime HCl (Maxipime Iv 1 Gm Premix) 1 gm in 50 mls @ 100 mls/hr IVPB Q24H [facility] Last Admin: 12/24/16 19:01 Dose: 100 mls/hr Insulin Aspart (Novolog) 0 unit SC ACHS [facility] PRN Reason: Protocol Last Admin: 12/24/16 22:44 Dose: Not Given Losartan Potassium (Cozaar) 100 mg PO DAILY [facility] Last Admin: 12/24/16 10:35 Dose: 100 mg Metolazone (Zaroxolyn) 5 mg PO DAILY [facility] Last Admin: 12/24/16 10:38 Dose: 5 mg Ondansetron HCl (Zofran Inj) 4 mg IVP Q6H PRN PRN Reason: Nausea/Vomiting Last Admin: 12/21/16 17:19 Dose: 4 mg Rosuvastatin Calcium (Crestor) 10 mg PO HS [facility] Last Admin: 12/24/16 22:56 Dose: 10 mg Vitamin B Complex/Vitamin C (Berocca) 1 tab PO DAILY [facility] Last Admin: 12/24/16 10:36 Dose: 1 tab - Labs Labs: 12/23/16 06:22 12/24/16 06:21 PT 10.9 SECONDS (9.7-12.2) 12/20/16 16:07 INR 1.0 12/20/16 16:07 APTT 61 SECONDS (21-34) H 12/23/16 06:22 Assessment and Plan - Assessment and Plan (Free Text) Assessment: ESRD ON HD T T S ANEMIA OF CKD .. ON EPO S/P C CATH C/O [facility]
[2016-12-25] MEDS: metroNIDAZOLE IV 250mg/50 ml 250 MG/50 ML BAG IVPB SCH ×2 (06:00→14:55)
[2016-12-25] MEDS: (Novolog) Insulin Aspart, Recombinant 100 u/ml 10 ml vial SC SCH ×4 (07:40→21:49)
[2016-12-25] MEDS: metOLazone 5 MG TAB PO SCH (09:44)
[2016-12-25] MEDS: Vitamin B Complex/Vitamin C Tab PO SCH ×2 (09:44→09:47)
[2016-12-25] MEDS: Collagenase 250 Units/gm Ointment(30 gm) TOP SCH (09:54)
[2016-12-25 10:56] LABS: BASO # 0.1 K/uL (0.0-0.2); EOS # 0.5 K/uL (0.0-0.7); HEMOGLOBIN 10.2 g/dL (11.0-16.0); LYMPH # 0.9 K/uL (1.0-4.3); LYMPH % 11.2 % (20.0-40.0); MEAN CELL VOLUME 94.3 fL (81.0-99.0); MEAN CORPUSCULAR HEMOGLOBIN 30.4 pg (27.0-31.0); MEAN CORPUSCULAR HGB CONC 32.2 g/dL (33.0-37.0); MONO # 0.5 K/uL (0.0-0.8); MONO % 6.4 % (0.0-10.0); NEUT # 5.8 K/uL (1.8-7.0); NEUT % 75.4 % (50.0-75.0); RBC 3.36 Mil/uL (3.80-5.20); RED CELL DISTRIBUTION WIDTH 15.7 % (11.5-14.5); WHITE BLOOD COUNT 7.6 K/uL (4.8-10.8)
[2016-12-25 11:27] LABS: CALCIUM 8.5 mg/dl (8.6-10.4); MAGNESIUM 2.1 mg/dL (1.6-2.3)
--- NOTE | 2016-12-25 11:37 | CP.PCM.PN ---
Subjective - Date & Time of Evaluation Date of Evaluation: 12/25/16 Time of Evaluation: 11:37 - Subjective Subjective: 71 year old female was seen at bedside in the ICU with attending, Dr. Stevens for left heel non-healing wound. She states that she has pain to her left foot today. She has an offloading boot to her left LE. She is currently under going dialysis. Patient denies any recent N/V/F/C/CP/SOB. Patient denies any further pedal complaints at this time. Objective - Vital Signs/Intake and Output Vital Signs (last 24 hours): Temp Pulse Resp BP Pulse Ox 98.7 F 69 16 154/40 H 98 12/25/16 09:00 12/25/16 09:00 12/25/16 09:00 12/25/16 09:44 12/25/16 09:00 Intake and Output: 12/25/16 12/25/16 06:59 18:59 Intake Total 600 Balance 600 - Medications Medications: Current Medications Alprazolam (Xanax) 0.5 mg PO TTS PRN PRN Reason: Anxiety Last Admin: 12/25/16 09:45 Dose: 0.5 mg Aspirin (Aspirin Chewable) 81 mg PO DAILY [facility] Last Admin: 12/25/16 11:05 Dose: Not Given Calcium Acetate (Phoslo) 667 mg PO BIDCC [facility] Last Admin: 12/25/16 08:19 Dose: 667 mg Clopidogrel Bisulfate (Plavix) 75 mg PO DAILY [facility] Last Admin: 12/25/16 09:43 Dose: 75 mg Collagenase (Santyl) 0 gm TOP DAILY [facility] Last Admin: 12/25/16 09:54 Dose: 1 appl Escitalopram Oxalate (Lexapro) 10 mg PO DAILY [facility] Last Admin: 12/25/16 09:48 Dose: 10 mg Famotidine (Pepcid) 20 mg IVP DAILY [facility] Last Admin: 12/25/16 09:45 Dose: 20 mg Furosemide (Lasix) 40 mg PO DAILY [facility] Last Admin: 12/25/16 09:44 Dose: 40 mg Hydralazine HCl (Apresoline) 25 mg PO Q12 [facility] Last Admin: 12/25/16 09:45 Dose: Not Given Metronidazole (Flagyl) 250 mg in 50 mls @ 100 mls/hr IVPB Q8 [facility] Stop: 12/25/16 17:31 Last Admin: 12/25/16 06:00 Dose: 100 mls/hr Vancomycin HCl 1 gm/ Sodium (Chloride) 250 mls @ 166.7 mls/hr IVPB MWF [facility] Last Admin: 12/24/16 10:37 Dose: 166.7 mls/hr Cefepime HCl (Maxipime Iv 1 Gm Premix) 1 gm in 50 mls @ 100 mls/hr IVPB Q24H [facility] Last Admin: 12/24/16 19:01 Dose: 100 mls/hr Insulin Aspart (Novolog) 0 unit SC ACHS [facility] PRN Reason: Protocol Last Admin: 12/25/16 07:40 Dose: Not Given Losartan Potassium (Cozaar) 100 mg PO DAILY [facility] Last Admin: 12/25/16 09:48 Dose: Not Given Metolazone (Zaroxolyn) 5 mg PO DAILY [facility] Last Admin: 12/25/16 09:44 Dose: 5 mg Ondansetron HCl (Zofran Inj) 4 mg IVP Q6H PRN PRN Reason: Nausea/Vomiting Last Admin: 12/21/16 17:19 Dose: 4 mg Rosuvastatin Calcium (Crestor) 10 mg PO HS [facility] Last Admin: 12/24/16 22:56 Dose: 10 mg Vitamin B Complex/Vitamin C (Berocca) 1 tab PO DAILY [facility] Last Admin: 12/25/16 09:47 Dose: 1 tab - Labs Labs: 12/25/16 10:47 12/24/16 06:21 PT 10.9 SECONDS (9.7-12.2) 12/20/16 16:07 INR 1.0 12/20/16 16:07 APTT 61 SECONDS (21-34) H 12/23/16 06:22 - Constitutional Appears: Non-toxic, No Acute Distress - Extremities Exam Additional comments: Lower extremity focused exam: Vasc: DP and PT pulses palpable 1/4 b/l. CFT < 3 seconds to digits 1-10. Skin temperature warm to warm from proximal to distal. Moderate pitting edema noted to lower extremity Neuro: Epicritic and protective sensation grossly intact b/l Derm: Ulceration seen at lateral and plantar aspect of the left foot, the base of the ulceration is eschar with hyperkeratotic rim. No purulent drainage, malodor, undermining, tracking, periwound erythema or other clinical signs of infection noted to the area. Erythematous skin changes noted to anterior shins b /l (possible hemosiderin deposition). No other open wounds, lesions, maceration , xerosis or abnormal pigmentation noted at this time. MSK: Mild POP noted to ulcer site of left foot - Neurological Exam Neurological Exam: Alert, Awake, Oriented x3 - Psychiatric Exam Psychiatric exam: Normal Affect, Normal Mood Assessment and Plan - Assessment and Plan (Free Text) Assessment: 71 year old female with left foot ulcer secondary to DM, ESRD, CHF and CKD Plan: Patient was seen and evaluated at bedside with attending, Dr. Stevens Charts, labs and vitals reviewed Wound dressed with santyl 4x4 gauze and kerlix cont. prevlon offloading boots placed offloading boots to be placed on LE at all times while pt in bed Continue with abx per ID Podiatry will continue to follow while in house
--- NOTE | 2016-12-25 14:01 | CP.PCM.PN ---
Subjective - Date & Time of Evaluation Date of Evaluation: 12/25/16 Time of Evaluation: 13:40 - Subjective Subjective: patient has no current chest pain. no dyspnea. Objective - Vital Signs/Intake and Output Vital Signs (last 24 hours): Temp Pulse Resp BP Pulse Ox 98.3 F 66 16 162/55 H 98 12/25/16 13:00 12/25/16 13:00 12/25/16 13:00 12/25/16 13:00 12/25/16 13:00 Intake and Output: 12/25/16 12/25/16 06:59 18:59 Intake Total 600 Balance 600 - Medications Medications: Current Medications Alprazolam (Xanax) 0.5 mg PO TTS PRN PRN Reason: Anxiety Last Admin: 12/25/16 09:45 Dose: 0.5 mg Aspirin (Aspirin Chewable) 81 mg PO DAILY [facility] Last Admin: 12/25/16 11:05 Dose: Not Given Calcium Acetate (Phoslo) 667 mg PO BIDCC [facility] Last Admin: 12/25/16 08:19 Dose: 667 mg Clopidogrel Bisulfate (Plavix) 75 mg PO DAILY [facility] Last Admin: 12/25/16 09:43 Dose: 75 mg Collagenase (Santyl) 0 gm TOP DAILY [facility] Last Admin: 12/25/16 09:54 Dose: 1 appl Escitalopram Oxalate (Lexapro) 10 mg PO DAILY [facility] Last Admin: 12/25/16 09:48 Dose: 10 mg Famotidine (Pepcid) 20 mg IVP DAILY [facility] Last Admin: 12/25/16 09:45 Dose: 20 mg Furosemide (Lasix) 40 mg PO DAILY [facility] Last Admin: 12/25/16 09:44 Dose: 40 mg Hydralazine HCl (Apresoline) 25 mg PO Q12 [facility] Last Admin: 12/25/16 09:45 Dose: Not Given Metronidazole (Flagyl) 250 mg in 50 mls @ 100 mls/hr IVPB Q8 [facility] Stop: 12/25/16 17:31 Last Admin: 12/25/16 06:00 Dose: 100 mls/hr Vancomycin HCl 1 gm/ Sodium (Chloride) 250 mls @ 166.7 mls/hr IVPB MWF [facility] Last Admin: 12/24/16 10:37 Dose: 166.7 mls/hr Cefepime HCl (Maxipime Iv 1 Gm Premix) 1 gm in 50 mls @ 100 mls/hr IVPB Q24H [facility] Last Admin: 12/24/16 19:01 Dose: 100 mls/hr Insulin Aspart (Novolog) 0 unit SC ACHS [facility] PRN Reason: Protocol Last Admin: 12/25/16 12:35 Dose: 4 unit Losartan Potassium (Cozaar) 100 mg PO DAILY [facility] Last Admin: 12/25/16 09:48 Dose: Not Given Metolazone (Zaroxolyn) 5 mg PO DAILY [facility] Last Admin: 12/25/16 09:44 Dose: 5 mg Ondansetron HCl (Zofran Inj) 4 mg IVP Q6H PRN PRN Reason: Nausea/Vomiting Last Admin: 12/21/16 17:19 Dose: 4 mg Rosuvastatin Calcium (Crestor) 10 mg PO HS [facility] Last Admin: 12/24/16 22:56 Dose: 10 mg Vitamin B Complex/Vitamin C (Berocca) 1 tab PO DAILY [facility] Last Admin: 12/25/16 09:47 Dose: 1 tab - Labs Labs: 12/25/16 10:47 12/25/16 10:14 PT 10.9 SECONDS (9.7-12.2) 12/20/16 16:07 INR 1.0 12/20/16 16:07 APTT 61 SECONDS (21-34) H 12/23/16 06:22 - Constitutional Appears: Non-toxic - Head Exam Head Exam: NORMAL INSPECTION - Eye Exam Eye Exam: Normal appearance - ENT Exam ENT Exam: Mucous Membranes Moist - Neck Exam Neck Exam: Normal Inspection - Respiratory Exam Respiratory Exam: NORMAL BREATHING PATTERN - Cardiovascular Exam Cardiovascular Exam: REGULAR RHYTHM - GI/Abdominal Exam GI & Abdominal Exam: Normal Bowel Sounds - Rectal Exam Rectal Exam: Deferred - Extremities Exam Extremities Exam: Pedal Edema - Back Exam Back Exam: NORMAL INSPECTION - Neurological Exam Neurological Exam: Alert - Psychiatric Exam Psychiatric exam: Normal Affect - Skin Skin Exam: Normal Color Assessment and Plan (1) NSTEMI (non-ST elevated myocardial infarction) Assessment & Plan: medical therapy. continue antiplatelet therapy Status: Acute (2) DM2 (diabetes mellitus, type 2) Assessment & Plan: glucose control Status: Chronic (3) Hypertension Status: Chronic - Assessment and Plan (Free Text) Assessment: blood pressure control
--- NOTE | 2016-12-25 14:09 | CP.PCM.PN ---
<Asia Williamson - Last Filed: 12/25/16 16:07> Subjective - Date & Time of Evaluation Date of Evaluation: 12/25/16 Time of Evaluation: 09:00 - Subjective Subjective: Medicine Note for Dr. Myrick Patient seen and examined in ICU bed #9. Patient complains of left foot pain and denies any other discomfort. Currently receiving dialysis. Patient denies headache, fever, chills, shortness of breath, chest pain, abdominal pain, nausea , vomiting, diarrhea, or urinary symptoms. Objective - Vital Signs/Intake and Output Vital Signs (last 24 hours): Temp Pulse Resp BP Pulse Ox 98.3 F 66 16 162/55 H 98 12/25/16 13:00 12/25/16 13:00 12/25/16 13:00 12/25/16 13:00 12/25/16 13:00 Intake and Output: 12/25/16 12/25/16 06:59 18:59 Intake Total 600 Balance 600 - Medications Medications: Current Medications Alprazolam (Xanax) 0.5 mg PO TTS PRN PRN Reason: Anxiety Last Admin: 12/25/16 09:45 Dose: 0.5 mg Aspirin (Aspirin Chewable) 81 mg PO DAILY [facility] Last Admin: 12/25/16 11:05 Dose: Not Given Calcium Acetate (Phoslo) 667 mg PO BIDCC [facility] Last Admin: 12/25/16 08:19 Dose: 667 mg Clopidogrel Bisulfate (Plavix) 75 mg PO DAILY [facility] Last Admin: 12/25/16 09:43 Dose: 75 mg Collagenase (Santyl) 0 gm TOP DAILY [facility] Last Admin: 12/25/16 09:54 Dose: 1 appl Escitalopram Oxalate (Lexapro) 10 mg PO DAILY [facility] Last Admin: 12/25/16 09:48 Dose: 10 mg Famotidine (Pepcid) 20 mg IVP DAILY [facility] Last Admin: 12/25/16 09:45 Dose: 20 mg Furosemide (Lasix) 40 mg PO DAILY [facility] Last Admin: 12/25/16 09:44 Dose: 40 mg Hydralazine HCl (Apresoline) 25 mg PO Q12 [facility] Last Admin: 12/25/16 09:45 Dose: Not Given Metronidazole (Flagyl) 250 mg in 50 mls @ 100 mls/hr IVPB Q8 [facility] Stop: 12/25/16 17:31 Last Admin: 12/25/16 06:00 Dose: 100 mls/hr Vancomycin HCl 1 gm/ Sodium (Chloride) 250 mls @ 166.7 mls/hr IVPB MWF [facility] Last Admin: 12/24/16 10:37 Dose: 166.7 mls/hr Cefepime HCl (Maxipime Iv 1 Gm Premix) 1 gm in 50 mls @ 100 mls/hr IVPB Q24H [facility] Last Admin: 12/24/16 19:01 Dose: 100 mls/hr Insulin Aspart (Novolog) 0 unit SC ACHS [facility] PRN Reason: Protocol Last Admin: 12/25/16 12:35 Dose: 4 unit Losartan Potassium (Cozaar) 100 mg PO DAILY [facility] Last Admin: 12/25/16 09:48 Dose: Not Given Metolazone (Zaroxolyn) 5 mg PO DAILY [facility] Last Admin: 12/25/16 09:44 Dose: 5 mg Ondansetron HCl (Zofran Inj) 4 mg IVP Q6H PRN PRN Reason: Nausea/Vomiting Last Admin: 12/21/16 17:19 Dose: 4 mg Rosuvastatin Calcium (Crestor) 10 mg PO HS [facility] Last Admin: 12/24/16 22:56 Dose: 10 mg Vitamin B Complex/Vitamin C (Berocca) 1 tab PO DAILY [facility] Last Admin: 12/25/16 09:47 Dose: 1 tab - Labs Labs: 12/25/16 10:47 12/25/16 10:14 PT 10.9 SECONDS (9.7-12.2) 12/20/16 16:07 INR 1.0 12/20/16 16:07 APTT 61 SECONDS (21-34) H 12/23/16 06:22 - Constitutional Appears: No Acute Distress, Chronically Ill - Head Exam Head Exam: NORMAL INSPECTION, NORMOCEPHALIC - Eye Exam Eye Exam: EOMI, Normal appearance, PERRL Pupil Exam: NORMAL ACCOMODATION - ENT Exam ENT Exam: Mucous Membranes Moist - Respiratory Exam Respiratory Exam: Clear to Ausculation Bilateral, NORMAL BREATHING PATTERN. absent: Wheezes - Cardiovascular Exam Cardiovascular Exam: REGULAR RHYTHM, RRR - GI/Abdominal Exam GI & Abdominal Exam: Soft, Normal Bowel Sounds. absent: Distended, Tenderness - Extremities Exam Extremities Exam: Normal Inspection, Pedal Edema, Tenderness Additional comments: bilateral lower extremity erythema L Upper extremity AVF - Neurological Exam Neurological Exam: Alert, Awake, Oriented x3 - Skin Skin Exam: Dry, Intact, Normal Color, Warm Assessment and Plan - Assessment and Plan (Free Text) Plan: NSTEMI Telemetry patient in ICU Cardio consulted- Dr. Law ECHO 10/23/16 - there is a small to moderate circumferential pericardial effusion. No evidence of tamponade. The left ventricular systolic function is normal. Elevated left atrial pressure by Tissue Doppler. The right centricular systolic function is normal. There is a trace aortic regurgiation. Mild mitral regurgitation. There is mild to moderate tricuspid regurgiation. Mild pulmonary hypertension (please see full report) HgbA1C: 7.0 TSH: 1.09, Lipid panel: T, chol: 178, LDL: 93, HDL: 46 Troponin: 9.7800-->9.0900-->6.5600-->4.7400 EKG - NSR @ 78, left atrial enlargement and nonspecific ST and T wave abnormalities (please see full report) Unchanged from prior EKG Risk factors: CAD, PVD, DM, HTN, Age, female RICARDO score: 3 points --> 13% risk at 14 days of: all-cause mortality, new or recurrent PA, or severe recurrent ischemia requiring urgent revascularization Heparin drip Aspirin 81mg PO daily Plavix 75mg PO daily Crestor 10mg PO HS Cardiac cath performed by Dr. Law on 12/25/15 in [place], recommends medical management ESRD Dialysis TThSat Nephro consult - Dr. Ambrose - joni appreciated B/L Cellulitis; Left heel wound Continue Vancomycin 1 gram IV MWF (active since 12/22/16) Follow podiatry recommendations 12/20/16 foot X ray - no acute fracture or bone destruction. Moderate dorsal soft tissue swelling may represent cellulitis in the appropriate clinical setting (please see full report) Patient was just discharged 12/19/16 from hospital per prior ID plan--> Patient was supposed to receive vancomycin IC after each dialysis for 3 weeks as per Continue Wound care Offloading boots Hypertension (controlled) Nephro consult - Dr. Ambrose - joni appreciated Follow cardiology recommendations Blood pressure stable s/p dialysis Tues post cath Holding parameters for home medications: Cozaar 100mg PO daily Hydralazine 25mg PO BID Metolazone 5mg PO daily Lasix 40mg PO daily Fluid Overload Hold if SBP<100 Cozaar 100mg PO daily Hydralazine 25mg PO BID Metolazone 5mg PO daily Lasix 40mg PO daily Nephro consult - Dr. Ambrose - help appreciated Vomiting Zofran 4mg IVPB Q6H PRN N/V Clear liquid diet Controlled Diabetes a1c: 7.0 (controlled compared to 09/2016) Lipid panel: T, chol: 178, LDL: 93, HDL: 46 Accuchecks QAC and HS Diabetic clear liquid diet Novolog insulin sliding scale-High Started on Lantus 20units SC BID Leukocytosis -resolved ID consult - Dr. Wellington - help appreciated Afebrile, WBC has normalized Lactic acid: 2.0 Procalcitonin: 0.38 Flagyl 500mg IV Q 8 hours (12/21/16)-->C dif negative Vancomycin 1 gram IV MWF (active since 12/22/16) Cefepime 1 gram IV Q24 hours (active since 12/21/16) CXR 12/20/18 - persistent moderate cardiomegaly, worsening pulmonary venous congestion and left pleural effusion (please see full report) Ct abdomen/pelvis (12/20/16): bilateral pleural effusions with basilar consolidation. Degenerative disease within the thoracic spine 12/20/16 foot X ray - no acute fracture or bone destruction. Moderate dorsal soft tissue swelling may represent cellulitis in the appropriate clinical setting (please see full report) Blood cultures (12/20/16): no growth after 3 days X2 Note prior hx/infected of left AV shunt--> Soft tissue lesion, nonspecific (ddx hematoma, seroma, abscess. Clinical correlation and follow-up. Incidental/non- acute findings Left arm culture: Coagulase Negative Staphylococcus Prophylactic measures Plavix 75mg, ASA PO daily Pepcid 20mg IVP daily Full code Continue PT DISPOSITION: Plan for DC home with home PT, visiting nurse and wound care. Pending Case Management. Teri Lam Dr., DO, PGY-1 <Benson Myrick Jr. - Last Filed: 12/29/16 12:17> Objective - Vital Signs/Intake and Output Vital Signs (last 24 hours): Temp Pulse Resp BP Pulse Ox 98.9 F 68 18 147/98 H 98 12/26/16 13:00 12/26/16 13:00 12/26/16 13:00 12/26/16 13:00 12/26/16 13:00 - Labs Labs: 12/26/16 06:19 12/26/16 06:17 PT 10.9 SECONDS (9.7-12.2) 12/20/16 16:07 INR 1.0 12/20/16 16:07 APTT 61 SECONDS (21-34) H 12/23/16 06:22 Attending/Attestation - Attestation I have personally seen and examined this patient.: Yes I have fully participated in the care of the patient.: Yes I have reviewed all pertinent clinical information, including history, physical exam and plan: Yes Notes (Text): 12/29/16 12:17 Agree with resident note and findings
[2016-12-25] MEDS: Cefepime IV 1 gm in Dextrose 1 GM/50 ML BAG IVPB SCH (17:11)
--- NOTE | 2016-12-25 18:59 | CP.PCM.PN ---
Subjective - Date & Time of Evaluation Date of Evaluation: 12/25/16 Time of Evaluation: 15:00 - Subjective Subjective: SEEN ON RENAL F/U SEEN O HD FEELS MUCH BETTER ALL PREVIOU EMR REVIEWED Objective - Vital Signs/Intake and Output Vital Signs (last 24 hours): Temp Pulse Resp BP Pulse Ox 98.6 F 66 14 126/83 95 12/25/16 17:00 12/25/16 17:00 12/25/16 17:00 12/25/16 17:00 12/25/16 17:00 Intake and Output: 12/25/16 12/25/16 06:59 18:59 Intake Total 600 730 Balance 600 730 - Medications Medications: Current Medications Alprazolam (Xanax) 0.5 mg PO TTS PRN PRN Reason: Anxiety Last Admin: 12/25/16 09:45 Dose: 0.5 mg Aspirin (Aspirin Chewable) 81 mg PO DAILY [facility] Last Admin: 12/25/16 11:05 Dose: Not Given Calcium Acetate (Phoslo) 667 mg PO BIDCC [facility] Last Admin: 12/25/16 17:13 Dose: 667 mg Clopidogrel Bisulfate (Plavix) 75 mg PO DAILY [facility] Last Admin: 12/25/16 09:43 Dose: 75 mg Collagenase (Santyl) 0 gm TOP DAILY [facility] Last Admin: 12/25/16 09:54 Dose: 1 appl Escitalopram Oxalate (Lexapro) 10 mg PO DAILY [facility] Last Admin: 12/25/16 09:48 Dose: 10 mg Famotidine (Pepcid) 20 mg IVP DAILY [facility] Last Admin: 12/25/16 09:45 Dose: 20 mg Furosemide (Lasix) 40 mg PO DAILY [facility] Last Admin: 12/25/16 09:44 Dose: 40 mg Hydralazine HCl (Apresoline) 25 mg PO Q12 [facility] Last Admin: 12/25/16 09:45 Dose: Not Given Cefepime HCl (Maxipime Iv 1 Gm Premix) 1 gm in 50 mls @ 100 mls/hr IVPB Q24H [facility] Last Admin: 12/25/16 17:11 Dose: 100 mls/hr Vancomycin/Sodium Chloride (Vancocin) 1 gm in 200 mls @ 133.333 mls/hr IVPB MWF [facility] Insulin Aspart (Novolog) 0 unit SC ACHS [facility] PRN Reason: Protocol Last Admin: 12/25/16 17:08 Dose: Not Given Insulin Glargine (Lantus) 20 unit SC BID [facility] Losartan Potassium (Cozaar) 100 mg PO DAILY [facility] Last Admin: 12/25/16 09:48 Dose: Not Given Metolazone (Zaroxolyn) 5 mg PO DAILY [facility] Last Admin: 12/25/16 09:44 Dose: 5 mg Ondansetron HCl (Zofran Inj) 4 mg IVP Q6H PRN PRN Reason: Nausea/Vomiting Last Admin: 12/21/16 17:19 Dose: 4 mg Rosuvastatin Calcium (Crestor) 10 mg PO HS [facility] Last Admin: 12/24/16 22:56 Dose: 10 mg Vitamin B Complex/Vitamin C (Berocca) 1 tab PO DAILY [facility] Last Admin: 12/25/16 09:47 Dose: 1 tab - Labs Labs: 12/25/16 10:47 12/25/16 10:14 PT 10.9 SECONDS (9.7-12.2) 12/20/16 16:07 INR 1.0 12/20/16 16:07 APTT 61 SECONDS (21-34) H 12/23/16 06:22 Assessment and Plan - Assessment and Plan (Free Text) Assessment: ESRD ON HD T T S ANEMIA OF CKD .. H/H STABLE C/O CURRENT CARE ON IVAB FOR CELLULITIS OF L UE AND L LFOOT C/O PRESENT CARE
[2016-12-26 06:38] LABS: ALB/GLOB RATIO 1.2 (1.0-2.1); ALBUMIN 3.4 g/dL (3.5-5.0); CALCIUM 8.5 mg/dl (8.6-10.4); MAGNESIUM 2.2 mg/dL (1.6-2.3)
[2016-12-26 06:55] LABS: BASO # 0.1 K/uL (0.0-0.2); EOS # 0.7 K/uL (0.0-0.7); EOS % 5.7 % (0.0-4.0); HEMOGLOBIN 11.5 g/dL (11.0-16.0); LYMPH # 1.2 K/uL (1.0-4.3); LYMPH % 9.9 % (20.0-40.0); MEAN CELL VOLUME 95.2 fL (81.0-99.0); MEAN CORPUSCULAR HEMOGLOBIN 30.7 pg (27.0-31.0); MEAN CORPUSCULAR HGB CONC 32.2 g/dL (33.0-37.0); MONO # 1.2 K/uL (0.0-0.8); MONO % 9.6 % (0.0-10.0); NEUT # 8.9 K/uL (1.8-7.0); NEUT % 73.8 % (50.0-75.0); NRBC % 0.1 % (0.0-2.0); PLATELET COUNT 199 K/uL (130-400); RBC 3.73 Mil/uL (3.80-5.20); RED CELL DISTRIBUTION WIDTH 15.9 % (11.5-14.5); WHITE BLOOD COUNT 12.1 K/uL (4.8-10.8)
[2016-12-26] MEDS: (Novolog) Insulin Aspart, Recombinant 100 u/ml 10 ml vial SC SCH ×3 (08:25→16:50)
[2016-12-26 08:42] LABS: ANISOCYTOSIS SLIGHT; EOSINOPHIL 8 % (0-4); HYPOCHROMIC SLIGHT; LYMPHOCYTE 7 % (20-40); MONOCYTE 10 % (0-10); NEUTROPHIL 75 % (50-75); PLATELET ESTIMATE NORMAL (NORMAL); POIKILOCYTOSIS SLIGHT; TOTAL CELLS COUNTED 100
[2016-12-26 08:43] LABS: TARGET CELLS SLIGHT
[2016-12-26] MEDS ORDERED: Vancomycin 1 gm/NS 200 ml 1 GM/200 ML BAG IVPB SCH (09:00)
[2016-12-26] MEDS: Vitamin B Complex/Vitamin C Tab PO SCH (09:33)
[2016-12-26] MEDS: metOLazone 5 MG TAB PO SCH (09:34)
[2016-12-26] MEDS: (Lantus) Insulin Glargine, Recombinant SC SCH ×2 (10:54→17:39)
[2016-12-26] MEDS: Collagenase 250 Units/gm Ointment(30 gm) TOP SCH (11:02)
--- NOTE | 2016-12-26 11:08 | CP.PCM.PN ---
Subjective - Date & Time of Evaluation Date of Evaluation: 12/26/16 Time of Evaluation: 11:06 - Subjective Subjective: 71 year old female was seen at bedside in the ICU with attending, Dr. Stevens for left heel non-healing wound. She states that she has pain to her left foot today. She has an offloading boot to her left LE. Patient denies any recent N/V /F/C/CP/SOB. Patient denies any further pedal complaints at this time. Objective - Vital Signs/Intake and Output Vital Signs (last 24 hours): Temp Pulse Resp BP Pulse Ox 98.6 F 71 15 158/56 H 97 12/26/16 09:00 12/26/16 09:00 12/26/16 09:00 12/26/16 09:33 12/26/16 09:00 Intake and Output: 12/26/16 12/26/16 06:59 18:59 Intake Total 200 Balance 200 - Medications Medications: Current Medications Alprazolam (Xanax) 0.5 mg PO TTS PRN PRN Reason: Anxiety Last Admin: 12/25/16 09:45 Dose: 0.5 mg Aspirin (Aspirin Chewable) 81 mg PO DAILY [facility] Last Admin: 12/26/16 10:54 Dose: 81 mg Calcium Acetate (Phoslo) 667 mg PO BIDCC [facility] Last Admin: 12/26/16 08:27 Dose: 667 mg Clopidogrel Bisulfate (Plavix) 75 mg PO DAILY [facility] Last Admin: 12/25/16 09:43 Dose: 75 mg Collagenase (Santyl) 0 gm TOP DAILY [facility] Last Admin: 12/26/16 11:02 Dose: 1 appl Escitalopram Oxalate (Lexapro) 10 mg PO DAILY [facility] Last Admin: 12/25/16 09:48 Dose: 10 mg Famotidine (Pepcid) 20 mg IVP DAILY [facility] Last Admin: 12/25/16 09:45 Dose: 20 mg Furosemide (Lasix) 40 mg PO DAILY [facility] Last Admin: 12/26/16 09:33 Dose: 40 mg Hydralazine HCl (Apresoline) 25 mg PO Q12 [facility] Last Admin: 12/25/16 21:48 Dose: 25 mg Cefepime HCl (Maxipime Iv 1 Gm Premix) 1 gm in 50 mls @ 100 mls/hr IVPB Q24H [facility] Last Admin: 12/25/16 17:11 Dose: 100 mls/hr Vancomycin/Sodium Chloride (Vancocin) 1 gm in 200 mls @ 133.333 mls/hr IVPB MWF [facility] Last Admin: 12/26/16 10:58 Dose: 133.333 mls/hr Insulin Aspart (Novolog) 0 unit SC ACHS [facility] PRN Reason: Protocol Last Admin: 12/26/16 08:25 Dose: 8 unit Insulin Glargine (Lantus) 20 unit SC BID [facility] Last Admin: 12/26/16 10:54 Dose: 20 units Losartan Potassium (Cozaar) 100 mg PO DAILY [facility] Last Admin: 12/26/16 09:33 Dose: 100 mg Metolazone (Zaroxolyn) 5 mg PO DAILY [facility] Last Admin: 12/26/16 09:34 Dose: 5 mg Ondansetron HCl (Zofran Inj) 4 mg IVP Q6H PRN PRN Reason: Nausea/Vomiting Last Admin: 12/21/16 17:19 Dose: 4 mg Rosuvastatin Calcium (Crestor) 10 mg PO HS [facility] Last Admin: 12/25/16 21:48 Dose: 10 mg Vitamin B Complex/Vitamin C (Berocca) 1 tab PO DAILY [facility] Last Admin: 12/26/16 09:33 Dose: 1 tab - Labs Labs: 12/26/16 06:19 12/26/16 06:17 PT 10.9 SECONDS (9.7-12.2) 12/20/16 16:07 INR 1.0 12/20/16 16:07 APTT 61 SECONDS (21-34) H 12/23/16 06:22 - Constitutional Appears: Non-toxic, No Acute Distress - Extremities Exam Additional comments: Lower extremity focused exam: Vasc: DP and PT pulses palpable 1/4 b/l. CFT < 3 seconds to digits 1-10. Skin temperature warm to warm from proximal to distal. Moderate pitting edema noted to lower extremity Neuro: Epicritic and protective sensation grossly intact b/l Derm: Ulceration seen at lateral and plantar aspect of the left foot, the base of the ulceration is eschar with hyperkeratotic rim. No purulent drainage, malodor, undermining, tracking, periwound erythema or other clinical signs of infection noted to the area. Erythematous skin changes noted to anterior shins b /l (possible hemosiderin deposition). No other open wounds, lesions, maceration , xerosis or abnormal pigmentation noted at this time. MSK: Mild POP noted to ulcer site of left foot - Neurological Exam Neurological Exam: Alert, Awake, Oriented x3 - Psychiatric Exam Psychiatric exam: Normal Affect, Normal Mood Assessment and Plan - Assessment and Plan (Free Text) Assessment: 71 year old female with left foot ulcer secondary to DM, ESRD, CHF and CKD Plan: Patient was seen and evaluated at bedside Discussed with attending, Dr. Stevens Charts, labs and vitals reviewed Wound dressed with santyl 4x4 gauze and kerlix daily dressing changes of santyl and DSD to left heel to be done by visiting nurse cont. prevlon offloading boots placed offloading boots to be placed on LE at all times while pt in bed Continue with abx per ID Patient to f/u wit Dr. Stevens in [facility] next Thursday
[2016-12-26 13:58] VITALS: BP 147/98; PULSE 68; RESP 18; TEMP 98.9; O2SAT 98
[2016-12-26] MEDS ORDERED: metroNIDAZOLE IV 250mg/50 ml 250 MG/50 ML BAG IVPB SCH (16:00)
--- NOTE | 2016-12-26 16:08 | CP.PCM.DIS ---
Provider - Provider Date of Admission: 12/20/16 16:17 Attending physician: Benson Myrick Jr, MD Time Spent in preparation of Discharge (in minutes): 45 Hospital Course - Lab Results Lab Results: Micro Results 12/20/16 16:20 Blood-Venous Blood Culture - Final NO GROWTH AFTER 5 DAYS 12/20/16 16:20 Blood-Venous Gram Stain - Final TEST NOT PERFORMED 12/22/16 Unknown Arm - Left Gram Stain - Final 12/22/16 Unknown Arm - Left Wound Culture - Final Coagulase Neg Staphylococcus 12/21/16 22:30 Stool Stool Culture - Final NO SALMONELLA, SHIGELLA OR CAMPYLOBACTER ISOLATED. 12/21/16 22:30 Stool Ova and Parasite Concentrate Exam - Final 12/20/16 18:19 Naris MRSA Culture (Admit) - Final MRSA NOT DETECTED Most Recent Lab Values WBC 12.1 K/uL (4.8-10.8) H D 12/26/16 06:19 RBC 3.73 Mil/uL (3.80-5.20) L 12/26/16 06:19 Hgb 11.5 g/dL (11.0-16.0) 12/26/16 06:19 Hct 35.5 % (34.0-47.0) 12/26/16 06:19 MCV 95.2 fL (81.0-99.0) 12/26/16 06:19 MCH 30.7 pg (27.0-31.0) 12/26/16 06:19 MCHC 32.2 g/dL (33.0-37.0) L 12/26/16 06:19 RDW 15.9 % (11.5-14.5) H 12/26/16 06:19 Plt Count 199 K/uL (130-400) 12/26/16 06:19 MPV 11.0 fL (7.2-11.7) 12/26/16 06:19 Neut % (Auto) 73.8 % (50.0-75.0) 12/26/16 06:19 Lymph % (Auto) 9.9 % (20.0-40.0) L 12/26/16 06:19 [place] % (Auto) 9.6 % (0.0-10.0) 12/26/16 06:19 Eos % (Auto) 5.7 % (0.0-4.0) H 12/26/16 06:19 Baso % (Auto) 1.0 % (0.0-2.0) 12/26/16 06:19 Neut # 8.9 K/uL (1.8-7.0) H 12/26/16 06:19 Lymph # 1.2 K/uL (1.0-4.3) 12/26/16 06:19 [place] # 1.2 K/uL (0.0-0.8) H 12/26/16 06:19 Eos # 0.7 K/uL (0.0-0.7) 12/26/16 06:19 Baso # 0.1 K/uL (0.0-0.2) 12/26/16 06:19 Neutrophils % (Manual) 75 % (50-75) 12/26/16 06:19 Lymphocytes % (Manual) 7 % (20-40) L 12/26/16 06:19 Monocytes % (Manual) 10 % (0-10) 12/26/16 06:19 Eosinophils % (Manual) 8 % (0-4) H 12/26/16 06:19 Platelet Estimate Normal (NORMAL) 12/26/16 06:19 Hypochromasia (manual) Slight 12/26/16 06:19 Poikilocytosis (manual Slight 12/26/16 06:19 Anisocytosis (manual) Slight 12/26/16 06:19 Target Cells Slight 12/26/16 06:19 ESR 50 mm/hr (0-20) H 12/20/16 16:03 PT 10.9 SECONDS (9.7-12.2) 12/20/16 16:07 INR 1.0 12/20/16 16:07 APTT 61 SECONDS (21-34) H 12/23/16 06:22 Puncture Site Rr 12/20/16 16:17 pCO2 37 mm/Hg (35-45) 12/20/16 16:17 pO2 93 mm/Hg (80-100) 12/20/16 16:17 HCO3 22.7 mmol/L (21-28) 12/20/16 16:17 ABG pH 7.38 (7.35-7.45) 12/20/16 16:17 ABG Total CO2 23.0 mmol/L (22-28) 12/20/16 16:17 ABG O2 Saturation 98.2 % (95-98) H 12/20/16 16:17 ABG Base Excess -2.8 mmol/L (-2.0-3.0) L 12/20/16 16:17 Joey Test Po 12/20/16 16:17 ABG Potassium 5.1 mmol/L (3.6-5.2) 12/20/16 16:17 A-a O2 Difference 60.0 mm/Hg 12/20/16 16:17 Respiratory Index 0.6 12/20/16 16:17 Sodium 128.0 mmol/l (132-148) L 12/20/16 16:17 Chloride 97.0 mmol/L (98-107) L 12/20/16 16:17 Glucose 460 mg/dl (65-105) H* D 12/20/16 16:17 Lactate 1.9 mmol/L (0.7-2.1) 12/20/16 16:17 Liter Flow 2.0 12/20/16 16:17 FiO2 28.0 % 12/20/16 16:17 Crit Value Called To Dr. de leon 12/20/16 16:17 Crit Value Called By Coleman briggs 12/20/16 16:17 Crit Value Read Back Y 12/20/16 16:17 Blood Gas Notified Time 1621 12/20/16 16:17 Sodium 135 mmol/L (132-148) 12/26/16 06:17 Potassium 4.5 mmol/L (3.6-5.2) 12/26/16 06:17 Chloride 93 mmol/L (98-107) L 12/26/16 06:17 Carbon Dioxide 27 mmol/L (22-30) 12/26/16 06:17 Anion Gap 20 (10-20) 12/26/16 06:17 BUN 21 mg/dL (7-17) H 12/26/16 06:17 Creatinine 4.3 MG/DL (0.7-1.2) H 12/26/16 06:17 Est GFR ( Amer) 12 12/26/16 06:17 Est GFR (Non-Af Amer) 10 12/26/16 06:17 POC Glucose (mg/dL) 337 mg/dL (65-110) H 12/26/16 12:18 Random Glucose 280 mg/dL (65-105) H 12/26/16 06:17 Hemoglobin A1c 7.0 % (4.2-6.5) H D 12/21/16 09:54 Lactic Acid 2.0 mmol/L (0.7-2.1) 12/20/16 16:15 Calcium 8.5 mg/dl (8.6-10.4) L 12/26/16 06:17 Phosphorus 5.3 mg/dL (2.5-4.5) H 12/26/16 06:17 Magnesium 2.2 mg/dL (1.6-2.3) 12/26/16 06:17 Total Bilirubin 0.4 mg/dL (0.2-1.3) 12/26/16 06:17 AST 43 U/L (14-36) H D 12/26/16 06:17 ALT 38 U/L (9-52) 12/26/16 06:17 Alkaline Phosphatase 157 U/L (38-126) H D 12/26/16 06:17 Total Creatine Kinase < 20 U/L (30-135) L 12/22/16 06:02 CK-MB (Mass) 2.48 ng/mL (0.0-3.38) 12/22/16 06:02 Troponin I 9.7800 ng/mL (0.00-0.120) H* 12/20/16 16:03 Troponin I, Quant 4.7400 ng/mL (0.00-0.120) H* 12/22/16 06:02 NT-Pro-B Natriuret Pep 611728 pg/mL (0-900) H 12/20/16 23:55 Total Protein 6.3 g/dL (6.3-8.3) 12/26/16 06:17 Albumin 3.4 g/dL (3.5-5.0) L 12/26/16 06:17 Globulin 2.8 gm/dL (2.2-3.9) 12/26/16 06:17 Albumin/Globulin Ratio 1.2 (1.0-2.1) 12/26/16 06:17 Triglycerides 144 mg/dL (0-149) D 12/21/16 09:54 Cholesterol 178 mg/dL (0-199) 12/21/16 09:54 LDL Cholesterol Direct 93 mg/dL (0-129) 12/21/16 09:54 HDL Cholesterol 46 mg/dL (30-70) 12/21/16 09:54 Lipase 65 U/L (23-300) 12/20/16 16:03 Procalcitonin 0.38 NG/ML (0.19-0.49) 12/20/16 23:55 TSH 3rd Generation 1.09 mIU/L (0.46-4.68) 12/21/16 09:54 Arterial Blood Potassium 5.1 mmol/L (3.6-5.2) 12/20/16 16:17 C. difficile Ag & Toxin Negative (NEGATIVE) 12/20/16 16:49 - Hospital Course Hospital Course: Upon Admission: CC: "vomiting all night" HPI: Patient is a 71 year old female with PMHx of ESRD, diastolic CHF, HTN, type 2 DM, anxiety, anemia and low back pain presenting to the ER today with her at bedside for intractable vomiting that started at 2am. Patient says she was continually vomiting throughout the night and cannot quantify how many times she vomited. She says the vomit was her food at first and then became whitish phlegm. Patient denies and green or yellow coloration to the vomit. Patient denies any blood in the vomit. Patient says she began experiencing thoracic back pain while vomiting this morning. Patient also reports watery, yellow diarrhea that started yesterday morning. Patient denies blood in the diarrhea. Patient reports associated diffuse, upper abdominal pain. Patient reports eating spaghetti with tomato sauce and fresh fish yesterday. Patient denies fever, chills, chest pain, SOB, constipation, dysuria , sick contacts, weight change. Patient was just discharged 12/19/16 for this Patient was supposed to receive vancomycin IC after each dialysis for [address] Amish Kincaid [employer]PERATOR note PMD: Dr Myrick PMHx: CKD stage III, CHF, HTN, CAD? (in prior records), DM2, anxiety, anemia of chronic disease, chronic low back pain PSHx: Appendectomy, AV fistula, lower extremity artherectomy Allergies: NKDA Family history: not contributory Social History: Lives with in [place], denies any smoking, denies ETOH or drug abuse Throughout Hospital Course: Patient was admitted for NSTEMI. Patient's troponin is 9. Patient has not had prior cardiac workup. Discussed with patient and at bedside, patient has not had a stress test, has not had a cardiac cath, and denies history of DC. Patient came into the ED today because of nausea, vomitting and diarrhea which started early in the morning around 2am. Patient ate spaghetti and per appears she threw up her food contents, but denies hematemesis. He reports sugar was very high this morning and gave her Lantus 36 units but sugars did not improve. Patient recently discharged on 12/19/16 with discharge instructions to include IV vancomycin post dialysis for 3 weeks. Concern r/o C. dif given recent hospitalizations and IV abx use. Cardiology (Dr. Law) consulted-->familiar with the patient's peripheral vascular disease; recommended for heparin drip. Patient had echo completed on 10/23/16; small to medium pericardial effusion, no tamponade, EF intact. Patient given her nausea and vomitting causing abdominal pain, and diarrhea unable to go to dialysis today and went to the ED instead. Resident discussed dialysis consent with the patient and awaiting dialysis orders from her stretch press operator, Dr. Ambrose. Patient only took insulin today prior to hospitalization today. Discussed with ICU, nonstemi further monitoring in the ICU. Patient has cardiac risk factors: DM, HTN, PVD, questionable hx of CHF. Ordered for CT abdomen/pelvis PO contrast; unable to tolerate PO contrast given vomiting; shows bibasilar pleural effusions and possible infiltrate. Patient's has leukocytosis-->prior hx of infected AV graft (left upper extremity) and left foot ulcer, and prior MSSA bacteremia per review of EMR. Lactic acid: 2.0, Ordered for blood, urine, and stool cultures and infectious disease consulted. Prior picc blood cultures from last admission shows no growth. Cardiac cath performed by Dr. Law on 12/25/15 in [place], recommends medical management. Patient was placed on vanco and flagyl for bilateral cellulitis. Patient is ESRD Dialysis TThSat. For her HTN, resumed on medication she was discharged with on prior admission. Plan is for discharge home, with home PT, visiting nurse, and wound care. Patient is to follow up with Dr. Stevens, as outpatient. This is a brief summary of the patients hospital course. Please review EMR for complete record. Discharge Exam - Head Exam Head Exam: NORMAL INSPECTION, NORMOCEPHALIC - Eye Exam Eye Exam: EOMI, Normal appearance, PERRL Pupil Exam: NORMAL ACCOMODATION - Respiratory Exam Respiratory Exam: Clear to PA & Lateral, NORMAL BREATHING PATTERN. absent: Decreased Breath Sounds - Cardiovascular Exam Cardiovascular Exam: REGULAR RHYTHM, RRR, +S1, +S2 - GI/Abdominal Exam GI & Abdominal Exam: Normal Bowel Sounds, Soft. absent: Distended, Tenderness - Rectal Exam Rectal Exam: Deferred - Neurological Exam Neurological exam: Alert, CN II-XII Intact, Normal Gait, Oriented x3 - Psychiatric Exam Psychiatric exam: Normal Affect, Normal Mood - Skin Skin Exam: Dry, Intact, Normal Color, Warm Discharge Plan - Follow Up Plan Condition: GUARDED Disposition: HOME/ ROUTINE Additional Instructions: Patient is to continue taking the follow medications: Aspirin 81mg PO daily, Plavix 75mg PO daily, Crestor 10mg PO HS, Cozaar 100mg PO daily, Hydralazine 25mg PO BID, Metolazone 5mg PO daily, Lasix 40mg PO daily. Continue Dialysis TThSat Follow up with Dr. Stevens as outpatient for continued care. Please see Dr. Myrick, within 1 week. Return to the ED if your symptoms worsen or return. Referrals: Jordan Stevens DPM [Staff Provider] -
[2016-12-26] MEDS: Cefepime IV 1 gm in Dextrose 1 GM/50 ML BAG IVPB SCH (16:49)
--- NOTE | 2016-12-26 17:27 | CP.PCM.PN ---
Subjective - Date & Time of Evaluation Date of Evaluation: 12/26/16 Time of Evaluation: 08:00 - Subjective Subjective: wound c/s - coag neg staph recc: cont iv antibiotics as out pt follow up with dr chery wound care Objective - Vital Signs/Intake and Output Vital Signs (last 24 hours): Temp Pulse Resp BP Pulse Ox 98.9 F 68 18 147/98 H 98 12/26/16 13:00 12/26/16 13:00 12/26/16 13:00 12/26/16 13:00 12/26/16 13:00 Intake and Output: 12/26/16 12/26/16 06:59 18:59 Intake Total 200 Balance 200 - Medications Medications: Current Medications Alprazolam (Xanax) 0.5 mg PO TTS PRN PRN Reason: Anxiety Last Admin: 12/25/16 09:45 Dose: 0.5 mg Aspirin (Aspirin Chewable) 81 mg PO DAILY [facility] Last Admin: 12/26/16 10:54 Dose: 81 mg Calcium Acetate (Phoslo) 667 mg PO BIDCC [facility] Last Admin: 12/26/16 16:50 Dose: 667 mg Clopidogrel Bisulfate (Plavix) 75 mg PO DAILY [facility] Last Admin: 12/26/16 12:29 Dose: 75 mg Collagenase (Santyl) 0 gm TOP DAILY [facility] Last Admin: 12/26/16 11:02 Dose: 1 appl Escitalopram Oxalate (Lexapro) 10 mg PO DAILY [facility] Last Admin: 12/26/16 12:29 Dose: 10 mg Famotidine (Pepcid) 20 mg IVP DAILY [facility] Last Admin: 12/26/16 12:34 Dose: 20 mg Furosemide (Lasix) 40 mg PO DAILY [facility] Last Admin: 12/26/16 09:33 Dose: 40 mg Hydralazine HCl (Apresoline) 25 mg PO Q12 [facility] Last Admin: 12/26/16 12:30 Dose: 25 mg Cefepime HCl (Maxipime Iv 1 Gm Premix) 1 gm in 50 mls @ 100 mls/hr IVPB Q24H [facility] Last Admin: 12/26/16 16:49 Dose: 100 mls/hr Vancomycin/Sodium Chloride (Vancocin) 1 gm in 200 mls @ 133.333 mls/hr IVPB MWF [facility] Last Admin: 12/26/16 10:58 Dose: 133.333 mls/hr Metronidazole (Flagyl) 250 mg in 50 mls @ 100 mls/hr IVPB Q8H [facility] Last Admin: 12/26/16 15:42 Dose: 100 mls/hr Insulin Aspart (Novolog) 0 unit SC ACHS [facility] PRN Reason: Protocol Last Admin: 12/26/16 16:50 Dose: 2 unit Insulin Glargine (Lantus) 20 unit SC BID [facility] Last Admin: 12/26/16 10:54 Dose: 20 units Losartan Potassium (Cozaar) 100 mg PO DAILY [facility] Last Admin: 12/26/16 09:33 Dose: 100 mg Metolazone (Zaroxolyn) 5 mg PO DAILY [facility] Last Admin: 12/26/16 09:34 Dose: 5 mg Ondansetron HCl (Zofran Inj) 4 mg IVP Q6H PRN PRN Reason: Nausea/Vomiting Last Admin: 12/21/16 17:19 Dose: 4 mg Rosuvastatin Calcium (Crestor) 10 mg PO HS [facility] Last Admin: 12/25/16 21:48 Dose: 10 mg Vitamin B Complex/Vitamin C (Berocca) 1 tab PO DAILY [facility] Last Admin: 12/26/16 09:33 Dose: 1 tab - Labs Labs: 12/26/16 06:19 12/26/16 06:17 PT 10.9 SECONDS (9.7-12.2) 12/20/16 16:07 INR 1.0 12/20/16 16:07 APTT 61 SECONDS (21-34) H 12/23/16 06:22 - Constitutional Appears: Non-toxic - Head Exam Head Exam: NORMOCEPHALIC - Eye Exam Eye Exam: PERRL - ENT Exam ENT Exam: Mucous Membranes Dry - Neck Exam Neck Exam: absent: Lymphadenopathy - Respiratory Exam Respiratory Exam: Decreased Breath Sounds - Cardiovascular Exam Cardiovascular Exam: REGULAR RHYTHM - GI/Abdominal Exam GI & Abdominal Exam: Distended Assessment and Plan (1) Cellulitis of foot Status: Acute (2) Elevated troponin Status: Acute (3) End stage renal disease on dialysis Status: Acute (4) Nausea & vomiting Status: Acute (5) Uncontrolled type 2 diabetes mellitus with hyperglycemia Status: Chronic (6) Cellulitis Status: Acute (7) Diabetes Status: Acute (8) NSTEMI (non-ST elevated myocardial infarction) Status: Acute (9) Wound infection after surgery Status: Acute (10) CAD (coronary artery disease) Status: Chronic (11) CHF (congestive heart failure) Status: Chronic (12) CKD (chronic kidney disease) stage 3, GFR 30-59 ml/min Status: Chronic (13) DM2 (diabetes mellitus, type 2) Status: Chronic (14) Dyslipidemia Status: Chronic
--- NOTE | 2016-12-27 00:36 | CP.PCM.PN ---
Subjective - Date & Time of Evaluation Date of Evaluation: 12/26/16 Time of Evaluation: 14:00 - Subjective Subjective: WAS SEEN IN ICU BED 9 ON RENAL F/U FEELS BETTER L ARM SURGICAL WOUND APPEAS MUCH BETTER Objective - Vital Signs/Intake and Output Vital Signs (last 24 hours): Temp Pulse Resp BP Pulse Ox 98.9 F 68 18 147/98 H 98 12/26/16 13:00 12/26/16 13:00 12/26/16 13:00 12/26/16 13:00 12/26/16 13:00 Intake and Output: 12/26/16 12/27/16 18:59 06:59 Intake Total 200 Balance 200 - Labs Labs: 12/26/16 06:19 12/26/16 06:17 PT 10.9 SECONDS (9.7-12.2) 12/20/16 16:07 INR 1.0 12/20/16 16:07 APTT 61 SECONDS (21-34) H 12/23/16 06:22 Assessment and Plan - Assessment and Plan (Free Text) Assessment: ESRD ON HD T T S ANEMIA OF CKD .. H/H STABLE ON IVAB FOR INFECTION P : REASSUREDD C/O CURRENT CARE
== END 2016-12-26 18:31 | disposition home or self-care (01) | DRG 280 ==
LOC: C.ER 14:17 → C.9E 16:17 → C.9I 17:35
PROVIDERS: ADMIT Internal Medicine; ATTEND Internal Medicine
PROC: 5A1D60Z (ICD-10-PCS; principal; 2016-12-20)
PROC: 4A023N7 Measurement of Cardiac Sampling and Pressure, Left Heart, Percutaneous Approach (ICD-10-PCS; 2016-12-24)
PROC: B2051ZZ Plain Radiography of Left Heart using Low Osmolar Contrast (ICD-10-PCS; 2016-12-24)
PROC: B2011ZZ Plain Radiography of Multiple Coronary Arteries using Low Osmolar Contrast (ICD-10-PCS; 2016-12-24)
DX: I21.4 Non-ST elevation (NSTEMI) myocardial infarction (principal); N18.6 End stage renal disease; I12.0 Hypertensive chronic kidney disease with stage 5 chronic kidney disease or end stage renal disease; I31.3 Pericardial effusion (noninflammatory); E11.22 Type 2 diabetes mellitus with diabetic chronic kidney disease; L03.116 Cellulitis of left lower limb; I16.1 Hypertensive emergency; L03.114 Cellulitis of left upper limb; E11.65 Type 2 diabetes mellitus with hyperglycemia; I27.2 Other secondary pulmonary hypertension; Z99.2 Dependence on renal dialysis; F41.9 Anxiety disorder, unspecified; E78.5 Hyperlipidemia, unspecified; I25.118 Atherosclerotic heart disease of native coronary artery with other forms of angina pectoris; I34.0 Nonrheumatic mitral (valve) insufficiency; D63.1 Anemia in chronic kidney disease; Z79.4 Long term (current) use of insulin

== ENCOUNTER 2017-02-10 01:43 | Inpatient (IN) | payer MEDICARE ==
[2017-02-10 01:44] VITALS: BMI 26.4
--- NOTE | 2017-02-10 02:02 | C.PDOC ---
History Of Present Illness Patient presents to the ER with a complaint of dull abdominal pain, nausea, and vomiting since 02/05. Patient states she missed her dialysis on 02/05 because she was not feeling well; patient has Thursday, , Thursday dialysis. Patient reports this feels similar to a prior episode she had last month. Denies fever or chills. Time Seen by Provider: 02/10/17 02:01 Chief Complaint (Nursing): Abdominal Pain History Per: Patient History/Exam Limitations: no limitations Onset/Duration Of Symptoms: Days Current Symptoms Are (Timing): Still Present Severity: Moderate Pain Scale Rating Of: 5 Location Of Pain/Discomfort: Diffuse Radiation Of Pain To:: None Quality Of Discomfort: Dull Associated Symptoms: Nausea, Vomiting. denies: Fever, Chills Exacerbating Factors: None Alleviating Factors: None Recent travel outside of the [place]: No Abnormal Vaginal Bleeding: No Past Medical History Reviewed: Historical Data, Nursing Documentation, Vital Signs Vital Signs: Last Vital Signs Temp Pulse 71 02/10/17 06:27 Resp 18 02/10/17 06:27 BP 196/67 H 02/10/17 06:27 Pulse Ox 97 02/10/17 06:27 - Medical History PMH: Anemia, Anxiety, CHF, Depression, Diabetes, HTN, Hypercholesterolemia, End Stage Renal Disease, Chronic Kidney Disease Surgical History: Appendectomy, Endoscopy (OCTOBER 2013) - [facility] Procedures ANESTH INJECT-SPIN CANAL (01/08/15) ANGIOPLASTY OF OTHER NON-CORONARY VESSEL(S) (03/01/14) ATHERECTOMY OF OTHER NON-CORONARY VESSEL(S) (03/01/14) BYPASS L BASILIC VEIN TO UP VEIN W SYNTH SUB, OPEN (10/21/16) DILATION OF LEFT POPLITEAL ARTERY, PERCUTANEOUS APPROACH (10/21/16) DRAINAGE OF LEFT LOWER ARM SKIN, EXTERNAL APPROACH (11/28/16) DRAINAGE OF LEFT PLEURAL CAVITY, PERCUTANEOUS APPROACH (10/10/15) EXCISION OF LEFT LOWER ARM SKIN, EXTERNAL APPROACH (11/28/16) EXERCISE TREATMENT OF MUSCULOSK WHOLE USING ASSIST EQUIPMENT (10/17/15) GAIT TRAINING/AMBULAT TREATMENT USING ASSIST EQUIPMENT (10/17/15) HOME MANAGEMENT TREATMENT USING ASSIST EQUIPMENT (10/17/15) IMMOBILIZ/WOUND ATTN NEC (06/24/13) INJECT STEROID (01/08/15) INJECT/INFUSE NEC (01/08/14) INSEJ OF DRUG-ELUTING STENT(S) OF OTH PERIPHERAL VESSEL(S) (03/01/14) INSERT INFUSION DEV IN R INT JUGULAR VEIN, PERC (10/21/16) INSERTION OF INFUSION DEV INTO SUP VENA CAVA, PERC APPROACH (11/28/16) INSERTION OF TWO VASCULAR STENTS (03/01/14) INTRODUCE OF OTH ANTI-INFECT INTO PERIPH VEIN, PERC APPROACH (10/17/15) MEASURE OF CARDIAC SAMPL & PRESSURE, L HEART, PERC APPROACH (12/20/16) PERFORMANCE OF URINARY FILTRATION, MULTIPLE (12/20/16) PLAIN RADIOGRAPHY OF LEFT HEART USING LOW OSMOLAR CONTRAST (12/20/16) PLAIN RADIOGRAPHY OF MULT COR ART USING L OSM CONTRAST (12/20/16) PROCEDURE ON SINGLE VESSEL (03/01/14) SPINAL CANAL INJECT NEC (01/08/15) TRANSFUSE NONAUT RED BLOOD CELLS IN PERIPH VEIN, PERC (11/28/16) VACCINATION NEC (11/29/14) Family History: States: No Known Family Hx - Social History Hx Alcohol Use: No Hx Substance Use: No - Immunization History Hx Tetanus Toxoid Vaccination: No Hx Influenza Vaccination: No Hx Pneumococcal Vaccination: No Review Of Systems Constitutional: Negative for: Fever, Chills Gastrointestinal: Positive for: Nausea, Vomiting, Abdominal Pain Physical Exam - Physical Exam Appears: Non-toxic, Other (Moderate discomfort) Skin: Warm, Dry, Pale Head: Normacephalic Oral Mucosa: Moist Chest: Symmetrical, No Tenderness Cardiovascular: Rhythm Regular Respiratory: No Rales, Rhonchi (Scattered), No Wheezing Gastrointestinal/Abdominal: Soft, No Tenderness, Distention, Other (Tympanic to percussion) Extremity: Pedal Edema (Bilateral), Other (Left arm graft with good thrill and bruit. Left heel healing ulcer.) Neurological/Psych: Oriented x3 ED Course And Treatment - Laboratory Results Result Diagrams: 02/10/17 02:22 02/10/17 02:22 ECG: Interpreted By Me, Viewed By Me O2 Sat by Pulse Oximetry: 96 (Room air) Pulse Ox Interpretation: Normal - Radiology CXR: Interpreted by Me, Viewed By Me CXR Interpretation: Yes: Cardiomegaly, Other (left effusion, chf, r loi cath in place). No: Infiltrates, Fracture Progress Note: EKG, blood work, and CXR ordered. Pepcid and zofran administered. Disposition Discussed With Dr.: Benson Myrick Jr. Comment: accepted the pt on his service and took over the care at Doctor Will See Patient In The: ED Counseled Patient/Family Regarding: Studies Performed, Diagnosis - Disposition Disposition: HOSPITALIZED Disposition Time: 02:02 Condition: FAIR - POA Present On Arrival: Poor Glycemic Control - Clinical Impression Clinical Impression: Abdominal pain, Nausea & vomiting, CHF (congestive heart failure), End stage renal disease on dialysis - Scribe Statement The provider has reviewed the documentation as recorded by the Scribe Juan uMniz All medical record entries made by the Scribe were at my direction and personally dictated by me. I have reviewed the chart and agree that the record accurately reflects my personal performance of the history, physical exam, medical decision making, and the department course for this patient. I have also personally directed, reviewed, and agree with the discharge instructions and disposition. Decision To Admit - Pt Status Changed To: Hospital Disposition Of: Inpatient - Admit Certification Admit to Inpatient:: After my assessment, the patient will require hospitalization for at least two midnights. This is because of the severity of symptoms shown, intensity of services needed, and/or the medical risk in this patient being treated as an outpatient. - InPatient: Physician Admission Certification:: After my assessment, the patient will require hospitalization for at least two midnights. This is because of the severity of symptoms shown, intensity of services needed, and/or the medical risk in this patient being treated as an outpatient. - . Bed Request Type: Telemetry Admitting Physician: Benson Myrick Jr. Patient Diagnosis: Abdominal pain, Nausea & vomiting, CHF (congestive heart failure), End stage renal disease on dialysis
[2017-02-10 02:25] LABS: BASO % 0.2 % (0.0-2.0); EOS # 0.2 K/uL (0.0-0.7); EOS % 1.7 % (0.0-4.0); HEMATOCRIT 34.3 % (34.0-47.0); LYMPH # 0.9 K/uL (1.0-4.3); LYMPH % 6.4 % (20.0-40.0); MEAN CELL VOLUME 88.6 fL (81.0-99.0); MEAN CORPUSCULAR HEMOGLOBIN 28.6 pg (27.0-31.0); MEAN CORPUSCULAR HGB CONC 32.3 g/dL (33.0-37.0); MONO # 1.3 K/uL (0.0-0.8); MONO % 8.8 % (0.0-10.0); NRBC % 0.1 % (0.0-2.0); PLATELET COUNT 583 K/uL (130-400); WHITE BLOOD COUNT 14.5 K/uL (4.8-10.8)
[2017-02-10 02:34] LABS: INR 1.1
[2017-02-10 02:37] LABS: ALB/GLOB RATIO 1.1 (1.0-2.1); BILIRUBIN,TOTAL 0.7 mg/dL (0.2-1.3); CALCIUM 8.4 mg/dl (8.6-10.4); TOTAL PROTEIN 7.1 g/dL (6.3-8.3)
[2017-02-10 02:49] LABS: POTASSIUM 3.7 mmol/L (3.6-5.2)
[2017-02-10 05:33] LABS: EOSINOPHIL 1 % (0-4); NEUTROPHIL 77 % (50-75); TOTAL CELLS COUNTED 100
--- NOTE | 2017-02-10 07:44 | CP.PCM.HP ---
History of Present Illness - History of Present Illness History of Present Illness: Patient is a 71F with PMH of ESRD (dialysis TTS), CHF, HTN, DM2, depression, anemia of chronic disease, chronic low back pain, glaucoma and non-healing left heel ulcer (since October 08). The patients gave the majority of the history due to language barrier. Patients reports that the patient has been vomiting since night. She has not been able to tolerate anything orally since she began vomiting. She is now experiencing epigastric pain that she believes is just soreness as a result of the vomiting. The patient was dry heaving during the interview. The abdominal pain is a dull pain at rest but is extremely sharp when she begins to vomit. Patient denies any blood or coffee ground appearence in her vomit. Patient reports periodic episodes of watery diarrhea but it switches back and fourth between diarrhea and formed stool. The patient states that she is more in pain due to her heel than her abdomen. She reports that an ulcer developed in September of 2016. She has been following with Dr. Stevens (podiatry) but it has not healed. She is currently taking an antibiotic for the ulcer but the is unable to read his handwriting. She has been taking Tylenol at home for pain but it has not been helping. Patient reports some SOB and blurry vision but states this has been going on for a long period of time. She does not believe her breathing is any worse now than usual. Denies f/c, n/v, cp, numbness, tingling. PMD: Dr Myrick PMHx: ESRD (dialysis TTS), CHF, HTN, DM2, depression, anemia of chronic disease , chronic low back pain, glaucoma PSHx: Appendectomy, AV fistula, lower extremity artherectomy Allergies: NKDA Family history: not contributory Social History: Lives with in [place], denies any smoking, denies ETOH or drug abuse Present on Admission - Present on Admission Any Indicators Present on Admission: No Review of Systems - Constitutional Constitutional: Fatigue, Headache (mild), Lethargy, Weakness. absent: Chills, Fever, Increased Appetite (decreased) - EENT Eyes: Blurred Vision. absent: Change in Vision Nose/Mouth/Throat: absent: Nasal Congestion, Nasal Discharge, Dry Mouth, Mouth Pain, Neck Pain - Cardiovascular Cardiovascular: Dyspnea, Leg Edema (worsening), Pedal Edema. absent: Chest Pain , Diaphoresis, Palpitations, Syncope - Respiratory Respiratory: Dyspnea. absent: Cough, Wheezing - Musculoskeletal Musculoskeletal: absent: Muscle Cramps, Neck Pain, Numbness, Stiffness, Tingling - Integumentary Integumentary: Non-Healing Lesions (left heel since september of 2016), Skin Pain ( left heel), Skin Ulcer - Neurological Neurological: Abnormal Gait (due to pain, no longer walking), Dizziness. absent : Confusion, Numbness, Frequent Falls, Memory Loss, Syncope, Weakness - Psychiatric Psychiatric: Change in Appetite (not eating due to vomiting) - Endocrine Endocrine: Fatigue. absent: Excessive Sweating, Palpitations Past Patient History - Infectious Disease Hx of Infectious Diseases: None - Tetanus Immunizations Tetanus Immunization: Unknown - Past Medical History & Family History Past Medical History?: Yes - Past Social History Smoking Status: Never Smoked - CARDIAC Hx Congestive Heart Failure: Yes Hx Hypercholesterolemia: Yes Hx Hypertension: Yes - PULMONARY Hx Respiratory Disorders: No - NEUROLOGICAL Hx Neurological Disorder: No - HEENT Hx HEENT Problems: Yes Hx Cataracts: Yes - RENAL Hx Chronic Kidney Disease: Yes - ENDOCRINE/METABOLIC Hx Endocrine Disorders: Yes Hx Diabetes Mellitus Type 2: Yes - HEMATOLOGICAL/ONCOLOGICAL Hx Anemia: Yes - INTEGUMENTARY Hx Dermatological Problems: No - MUSCULOSKELETAL/RHEUMATOLOGICAL Hx Musculoskeletal Disorders: Yes Hx Degenerative Joint Disease: Yes - GENITOURINARY/GYNECOLOGICAL Hx Genitourinary Disorders: Yes Hx Urinary Tract Infection: Yes - PSYCHIATRIC Hx Anxiety: Yes Hx Depression: Yes Hx Substance Use: No - SURGICAL HISTORY Hx Appendectomy: Yes - ANESTHESIA Hx Anesthesia: Yes Hx Anesthesia Reactions: No Hx Malignant Hyperthermia: No Meds Allergies/Adverse Reactions: Allergies Allergy/AdvReac Type Severity Reaction Status Date / Time No Known Allergies Allergy Verified 12/20/16 14:34 Physical Exam - Constitutional Appears: Non-toxic, In Acute Distress (patient appears in pain), Agitated - Head Exam Head Exam: ATRAUMATIC, NORMOCEPHALIC - Eye Exam Eye Exam: EOMI, Normal appearance - ENT Exam ENT Exam: Mucous Membranes Moist, Normal Exam - Neck Exam Neck exam: Positive for: Normal Inspection. Negative for: Lymphadenopathy - Respiratory Exam Respiratory Exam: Rhonchi (scattered throughout), NORMAL BREATHING PATTERN. absent: Accessory Muscle Use, Rales, Wheezes, Respiratory Distress - Cardiovascular Exam Cardiovascular Exam: REGULAR RHYTHM, JVD, +S1, +S2 - GI/Abdominal Exam GI & Abdominal Exam: Guarding, Normal Bowel Sounds, Soft, Tenderness ( epigastric region ). absent: Distended, Organomegaly, Rebound, Rigid - Extremities Exam Extremities exam: Positive for: normal capillary refill, pedal edema, pedal pulses present. Negative for: calf tenderness, tenderness Additional comments: 2+ pitting edema from knee to foot b/l - Back Exam Back exam: NORMAL INSPECTION. absent: CVA tenderness (L), CVA tenderness (R), paraspinal tenderness, rash noted, tenderness, vertebral tenderness - Neurological Exam Neurological exam: Alert, Oriented x3 - Psychiatric Exam Psychiatric exam: Normal Affect, Normal Mood Results - Vital Signs Recent Vital Signs: Last Vital Signs Temp 97.6 F 02/10/17 07:03 Pulse 73 02/10/17 07:03 Resp 18 02/10/17 07:03 BP 172/64 H 02/10/17 07:03 Pulse Ox 98 02/10/17 07:03 - Labs Result Diagrams: 02/10/17 02:22 02/10/17 02:22 Labs: Laboratory Results - last 24 hr 02/10/17 02/10/17 02/10/17 02:22 02:22 02:22 WBC 14.5 H RBC 3.87 Hgb 11.1 Hct 34.3 MCV 88.6 D MCH 28.6 MCHC 32.3 L RDW 18.0 H Plt Count 583 H D MPV 9.0 Neut % (Auto) 82.9 H Lymph % (Auto) 6.4 L Powell % (Auto) 8.8 Eos % (Auto) 1.7 Baso % (Auto) 0.2 Neut # 12.0 H Lymph # 0.9 L Powell # 1.3 H Eos # 0.2 Baso # 0.0 Neutrophils % (Manual) 77 H Band Neutrophils % 5 H Lymphocytes % (Manual) 7 L Monocytes % (Manual) 10 Eosinophils % (Manual) 1 Platelet Estimate Slightly increased H Poikilocytosis (manual Slight Anisocytosis (manual) Slight PT 12.5 H INR 1.1 APTT 31 Sodium 133 Potassium 3.7 Chloride 92 L Carbon Dioxide 21 L Anion Gap 24 H BUN 65 H Creatinine 4.3 H Est GFR ( Amer) 12 Est GFR (Non-Af Amer) 10 Random Glucose 151 H Calcium 8.4 L Total Bilirubin 0.7 AST 24 ALT 26 Alkaline Phosphatase 219 H NT-Pro-B Natriuret Pep 23576 H Total Protein 7.1 Albumin 3.8 Globulin 3.3 Albumin/Globulin Ratio 1.1 Lipase 10 L Assessment & Plan - Assessment and Plan (Free Text) Assessment: Leukocytosis WBC 14.5 with left shift, Bands 5 Patient does not meet SIRS criteria CXR 02/10/17 - Prominent confluent consolidation seen within the left mid to lower lung zone with associated moderate to large left pleural effusion. Moderate venous congestion with patchy right basilar airspace opacity. Right central venous catheter tip extending into the right atrium. No obvious change from previous study on 12/20/16. Flagyl 500mg IVPB Q8H started 02/10/17 Vanco 1gm IV one time dose f/u C. diff study (possible due to recent abx use) Vomiting See above plan for leukocytosis Zofran 4mg IVPB Q6H for 2 days ESRD Dialysis TTS - missed Thursday HD due to vomiting. Will get dialysis today. Restarted patient's home medications: Renvela 800mg PO TIDCC Nephro consult - Dr. Ambrose Non-Healing Left Heel Ulcer Podiatry consult - Dr. Stevens Restarted patient's home medications: Santyl topical f/u podiatry recs HTN w/hx of CHF Pro BNP 02/10/17 - 79603 (on 12/20 = [id number]) ECHO 10/23/16 - there is a small to moderate circumferential pericardial effusion. No evidence of tamponade. The left ventricular systolic function is normal. Elevated left atrial pressure by Tissue Doppler. The right centricular systolic function is normal. There is a trace aortic regurgiation. Mild mitral regurgitation. There is mild to moderate tricuspid regurgiation. Mild pulmonary hypertension (please see full report) CXR 02/10/17 - Prominent confluent consolidation seen within the left mid to lower lung zone with associated moderate to large left pleural effusion. Moderate venous congestion with patchy right basilar airspace opacity. Right central venous catheter tip extending into the right atrium. No obvious change from previous study on 12/20/16. Restarted patient's home medications: - Cozaar 100mg PO daily - Hydralazine 25mg PO BID - Bumetanide 1mg PO BID MWF Diabetes Started on insulin sliding scale for now. Need further investigation to determine patient's insulin regiment. Glaucoma Restarted patient's home medications: Latanoprost 0.005% 1 drop per eye HS Brimonidine 0.2% 1 drop per eye TID Depression Restarted patient's home medications: Lexapro 10mg PO daily Prophylaxis Heparin 5000u Q12 Protonix 40mg IVP daily Restarted home medications: Ergocalciferol 1 cap PO QWK Multivitamin 1 tab daily Case discussed with Dr. Ramez Hodgson Allegra DO
--- NOTE | 2017-02-10 09:13 | RAD ---
PROCEDURE: CHEST RADIOGRAPH, 1 VIEW HISTORY: Abdominal pain COMPARISON: 12/20/2016 FINDINGS: LUNGS: Prominent confluent consolidation seen within the left mid to lower lung zone with associated moderate to large left pleural effusion. Moderate venous congestion with patchy right basilar airspace opacity. Right central venous catheter tip extending into the right atrium. PLEURA: As above. CARDIOVASCULAR: Cardiomegaly. Calcification at the aortic knob. OSSEOUS STRUCTURES: No significant abnormalities. VISUALIZED UPPER ABDOMEN: Normal. OTHER FINDINGS: None. IMPRESSION: Prominent confluent consolidation seen within the left mid to lower lung zone with associated moderate to large left pleural effusion. Moderate venous congestion with patchy right basilar airspace opacity. Right central venous catheter tip extending into the right atrium.
[2017-02-10] MEDS ORDERED: Ergocalciferol 50,000 Intl Units Cap PO SCH (10:00)
[2017-02-10] MEDS: Multiple Vitamins Tab PO SCH (10:00)
[2017-02-10] MEDS: metroNIDAZOLE IV 500 mg/100 ml 500 MG/100 ML BAG IVPB SCH ×3 (10:19→23:00)
[2017-02-10] MEDS: Brimonidine 0.2% Opth Sol (5ml) OU SCH ×3 (10:19→18:30)
[2017-02-10] MEDS: (Novolog) Insulin Aspart, Recombinant 100 u/ml 10 ml vial SC SCH ×3 (11:23→23:00)
[2017-02-10] MEDS: Collagenase 250 Units/gm Ointment(30 gm) TOP SCH (11:44)
--- NOTE | 2017-02-10 12:47 | CP.PCM.PN ---
Subjective - Date & Time of Evaluation Date of Evaluation: 02/10/17 Time of Evaluation: 07:00 - Subjective Subjective: PGY-1 Medicine note- Dr. Myrick's Service Patient seen and examined at bedside and is very nauseous. Patient says she has mild diffuse abdominal pain. Patient has pain in her left foot from her chronic ulcer. Patient is still having vomiting but has had no diarrhea today. Patient denies chest pain and shortness of breath. Objective - Vital Signs/Intake and Output Vital Signs (last 24 hours): Temp Pulse Resp BP Pulse Ox 97.7 F 66 17 161/53 H 95 02/10/17 11:30 02/10/17 11:01 02/10/17 11:01 02/10/17 11:01 02/10/17 11:01 Intake and Output: 02/10/17 02/10/17 06:59 18:59 Intake Total 100 Balance 100 - Medications Medications: Current Medications Acetaminophen (Tylenol 325mg Tab) 650 mg PO Q6 PRN PRN Reason: fever/pain Allopurinol (Zyloprim) 100 mg PO DAILY [facility] Brimonidine Tartrate (Alphagan 0.2% Opht) 1 ml OU TID [facility] Last Admin: 02/10/17 10:19 Dose: 1 drop Bumetanide (Bumex) 1 mg PO MWF [facility] Collagenase (Santyl) 0 gm TOP DAILY [facility] Last Admin: 02/10/17 11:44 Dose: 1 applic Ergocalciferol (Drisdol 50,000 Intl Units Cap) 1 cap PO QWK [facility] Escitalopram Oxalate (Lexapro) 10 mg PO DAILY [facility] Ferrous Sulfate (Feosol) 325 mg PO DAILY [facility] Heparin Sodium (Porcine) (Heparin) 5,000 units SC Q8 [facility] Hydralazine HCl (Apresoline) 50 mg PO BID [facility] Metronidazole (Flagyl) 500 mg in 100 mls @ 100 mls/hr IVPB Q8 [facility] Last Admin: 02/10/17 10:19 Dose: 100 mls/hr Insulin Aspart (Novolog) 0 unit SC ACHS [facility]INA PRN Reason: Protocol Last Admin: 02/10/17 11:23 Dose: Not Given Latanoprost (Xalatan Opht) 1 ml OU HS [facility] Losartan Potassium (Cozaar) 100 mg PO DAILY [facility] Morphine Sulfate (Morphine) 2 mg IVP Q4 PRN PRN Reason: pain Last Admin: 02/10/17 09:40 Dose: 2 mg Multivitamins (Hexavitamin) 1 tab PO DAILY [facility] Ondansetron HCl (Zofran Inj) 4 mg IVP Q6H [facility] Pantoprazole Sodium (Protonix Inj) 40 mg IVP DAILY [facility] Last Admin: 02/10/17 11:07 Dose: 40 mg Rosuvastatin Calcium (Crestor) 20 mg PO HS ELINA Sevelamer Carbonate (Renvela) 800 mg PO TIDCC [facility] Last Admin: 02/10/17 11:24 Dose: Not Given - Labs Labs: 02/10/17 02:22 02/10/17 02:22 PT 12.5 SECONDS (9.7-12.2) H 02/10/17 02:22 INR 1.1 02/10/17 02:22 APTT 31 SECONDS (21-34) 02/10/17 02:22 - Constitutional Appears: Non-toxic, No Acute Distress - Head Exam Head Exam: ATRAUMATIC, NORMAL INSPECTION, NORMOCEPHALIC - Eye Exam Eye Exam: EOMI, Normal appearance - Neck Exam Neck Exam: Full ROM. absent: Tenderness - Respiratory Exam Respiratory Exam: Clear to Ausculation Bilateral, NORMAL BREATHING PATTERN. absent: Rales, Rhonchi, Wheezes, Respiratory Distress, Stridor - Cardiovascular Exam Cardiovascular Exam: REGULAR RHYTHM, RRR. absent: Gallop, Rubs, Murmur - GI/Abdominal Exam GI & Abdominal Exam: Soft, Normal Bowel Sounds - Extremities Exam Extremities Exam: Full ROM, Pedal Edema - Neurological Exam Neurological Exam: Alert, Awake, Oriented x3 - Psychiatric Exam Psychiatric exam: Normal Affect, Normal Mood - Skin Skin Exam: Erythema Additional comments: b/l 2+ pitting edema left heel ulcer wrapped in dry, clean, intact dressing. Assessment and Plan - Assessment and Plan (Free Text) Assessment: Leukocytosis WBC 14.5 with left shift, Bands 5 Patient does not meet SIRS criteria CXR 02/10/17 - Prominent confluent consolidation seen within the left mid to lower lung zone with associated moderate to large left pleural effusion. Moderate venous congestion with patchy right basilar airspace opacity. Right central venous catheter tip extending into the right atrium. No obvious change from previous study on 12/20/16. Flagyl 500mg IVPB Q8H started 02/10/17 Vanco 1gm IV one time dose f/u C. diff study (possible due to recent abx use) Vomiting See above plan for leukocytosis Zofran 4mg IVPB Q6H for 2 days f/u abdominal u/s GI consulted, Dr. Posada, help appreciated ESRD Dialysis TTS - missed Thursday HD due to vomiting. Will get dialysis today. Restarted patient's home medications: Renvela 800mg PO TIDCC Nephro consult - Dr. Ambrose, help appreciated Non-Healing Left Heel Ulcer Podiatry consult - Dr. Stevens Restarted patient's home medications: Santyl topical f/u podiatry recs HTN w/hx of CHF Pro BNP 02/10/17 - 42223 (on 12/20 = [id number]) ECHO 10/23/16 - there is a small to moderate circumferential pericardial effusion. No evidence of tamponade. The left ventricular systolic function is normal. Elevated left atrial pressure by Tissue Doppler. The right centricular systolic function is normal. There is a trace aortic regurgiation. Mild mitral regurgitation. There is mild to moderate tricuspid regurgiation. Mild pulmonary hypertension (please see full report) CXR 02/10/17 - Prominent confluent consolidation seen within the left mid to lower lung zone with associated moderate to large left pleural effusion. Moderate venous congestion with patchy right basilar airspace opacity. Right central venous catheter tip extending into the right atrium. No obvious change from previous study on 12/20/16. Restarted patient's home medications: - Cozaar 100mg PO daily - Hydralazine 25mg PO BID - Bumetanide 1mg PO BID MWF Diabetes Started on insulin sliding scale for now. Need further investigation to determine patient's insulin regiment. Glaucoma Restarted patient's home medications: Latanoprost 0.005% 1 drop per eye HS Brimonidine 0.2% 1 drop per eye TID Depression Restarted patient's home medications: Lexapro 10mg PO daily Prophylaxis Heparin 5000u sc q8h Protonix 40mg IVP daily Restarted home medications: Ergocalciferol 1 cap PO QWK Multivitamin 1 tab daily Case discussed with Dr. Myrick
--- NOTE | 2017-02-10 13:00 | CP.PCM.CON ---
<Tsering Michaels - Last Filed: 02/10/17 15:55> History of Present Illness - History of Present Illness History of Present Illness: Podiatry Consult Note- Dr. Stevens: This is a 71 yo female pt w/ pmh ESRD, CHF, HTN, DM, depression, anemia, chronic low back pain, glaucoma seen at bedside today for chronic left heel ulceration. Pt appears quite lethargic during visit today, however she is able to answer questions. is present at bedside with patient and says that patient has had a wound to her left heel for the past [address] Stevens weekly for wound care. says patient has been taking an antibiotic but they are unsure as to what she is taking. states that patient has also been experiencing nausea, vomiting and episodes of diarrhea since last week. Pt complains of abdominal pain today as well as left heel pain, denies numbness or tingling. Denies f/c/sob/cp at this time. Review of Systems - Review of Systems Review of Systems: all systems reviewed and found to be negative except HPI Past Patient History - Infectious Disease Hx of Infectious Diseases: None - Tetanus Immunizations Tetanus Immunization: Unknown - Past Medical History & Family History Past Medical History?: Yes - Past Social History Smoking Status: Never Smoked - CARDIAC Hx Congestive Heart Failure: Yes Hx Hypercholesterolemia: Yes Hx Hypertension: Yes - PULMONARY Hx Respiratory Disorders: No - NEUROLOGICAL Hx Neurological Disorder: No - HEENT Hx HEENT Problems: Yes Hx Cataracts: Yes - RENAL Hx Chronic Kidney Disease: Yes - ENDOCRINE/METABOLIC Hx Endocrine Disorders: Yes Hx Diabetes Mellitus Type 2: Yes - HEMATOLOGICAL/ONCOLOGICAL Hx Anemia: Yes - INTEGUMENTARY Hx Dermatological Problems: No - MUSCULOSKELETAL/RHEUMATOLOGICAL Hx Musculoskeletal Disorders: Yes Hx Degenerative Joint Disease: Yes - GENITOURINARY/GYNECOLOGICAL Hx Genitourinary Disorders: Yes Hx Urinary Tract Infection: Yes - PSYCHIATRIC Hx Anxiety: Yes Hx Depression: Yes Hx Substance Use: No - SURGICAL HISTORY Hx Appendectomy: Yes - ANESTHESIA Hx Anesthesia: Yes Hx Anesthesia Reactions: No Hx Malignant Hyperthermia: No Meds Allergies/Adverse Reactions: Allergies Allergy/AdvReac Type Severity Reaction Status Date / Time No Known Allergies Allergy Verified 12/20/16 14:34 - Medications Medications: Current Medications Acetaminophen (Tylenol 325mg Tab) 650 mg PO Q6 PRN PRN Reason: fever/pain Allopurinol (Zyloprim) 100 mg PO DAILY [facility] Brimonidine Tartrate (Alphagan 0.2% Opht) 1 ml OU TID [facility] Last Admin: 02/10/17 10:19 Dose: 1 drop Bumetanide (Bumex) 1 mg PO MWF [facility] Collagenase (Santyl) 0 gm TOP DAILY [facility] Last Admin: 02/10/17 11:44 Dose: 1 applic Ergocalciferol (Drisdol 50,000 Intl Units Cap) 1 cap PO QWK [facility] Escitalopram Oxalate (Lexapro) 10 mg PO DAILY [facility] Ferrous Sulfate (Feosol) 325 mg PO DAILY [facility] Heparin Sodium (Porcine) (Heparin) 5,000 units SC Q8 [facility] Hydralazine HCl (Apresoline) 50 mg PO BID [facility] Metronidazole (Flagyl) 500 mg in 100 mls @ 100 mls/hr IVPB Q8 [facility] Last Admin: 02/10/17 10:19 Dose: 100 mls/hr Insulin Aspart (Novolog) 0 unit SC ACHS [facility] PRN Reason: Protocol Last Admin: 02/10/17 11:23 Dose: Not Given Latanoprost (Xalatan Opht) 1 ml OU HS [facility] Losartan Potassium (Cozaar) 100 mg PO DAILY [facility] Morphine Sulfate (Morphine) 2 mg IVP Q4 PRN PRN Reason: pain Last Admin: 02/10/17 09:40 Dose: 2 mg Multivitamins (Hexavitamin) 1 tab PO DAILY [facility] Ondansetron HCl (Zofran Inj) 4 mg IVP Q6H [facility] Pantoprazole Sodium (Protonix Inj) 40 mg IVP DAILY [facility] Last Admin: 02/10/17 11:07 Dose: 40 mg Rosuvastatin Calcium (Crestor) 20 mg PO HS [facility] Sevelamer Carbonate (Renvela) 800 mg PO TIDCC [facility] Last Admin: 02/10/17 11:24 Dose: Not Given Physical Exam - Constitutional Appears: Non-toxic, No Acute Distress - Extremities Exam Additional comments: Left lower extremity exam: VASC- DP pulse is palpable, PT pulse non-palp, skin temp runs warm to cool ( proximal to distal), cap refill <3 sec to all digits, no pedal edema appreciated DERM-there is a full thickness ulceration noted to plantar lateral aspect of calcaneus with dusky coloration of skin noted laterally, there is no drainage, no purulence, no fluctuance, no erythema, no signs infection NEURO- gross pedal sensation is intact ORTHO- tenderness noted on palpation of posterior-lateral aspect of calcaneus, tenderness noted on palpation of posterior lateral aspect of left leg (no pain on deep compression of calf) - Neurological Exam Neurological exam: Alert, CN II-XII Intact, Oriented x3 - Psychiatric Exam Psychiatric exam: Normal Affect, Normal Mood Results - Vital Signs Recent Vital Signs: Last Vital Signs Temp 97.7 F 02/10/17 11:30 Pulse 66 02/10/17 11:01 Resp 17 02/10/17 11:01 BP 161/53 H 02/10/17 11:01 Pulse Ox 95 02/10/17 11:01 - Labs Result Diagrams: 02/10/17 02:22 02/10/17 02:22 Labs: Laboratory Results - last 24 hr 02/10/17 02/10/17 02/10/17 02:22 02:22 02:22 WBC 14.5 H RBC 3.87 Hgb 11.1 Hct 34.3 MCV 88.6 D MCH 28.6 MCHC 32.3 L RDW 18.0 H Plt Count 583 H D MPV 9.0 Neut % (Auto) 82.9 H Lymph % (Auto) 6.4 L [place] % (Auto) 8.8 Eos % (Auto) 1.7 Baso % (Auto) 0.2 Neut # 12.0 H Lymph # 0.9 L [place] # 1.3 H Eos # 0.2 Baso # 0.0 Neutrophils % (Manual) 77 H Band Neutrophils % 5 H Lymphocytes % (Manual) 7 L Monocytes % (Manual) 10 Eosinophils % (Manual) 1 Platelet Estimate Slightly increased H Poikilocytosis (manual Slight Anisocytosis (manual) Slight PT 12.5 H INR 1.1 APTT 31 Sodium 133 Potassium 3.7 Chloride 92 L Carbon Dioxide 21 L Anion Gap 24 H BUN 65 H Creatinine 4.3 H Est GFR ( Amer) 12 Est GFR (Non-Af Amer) 10 POC Glucose (mg/dL) Random Glucose 151 H Calcium 8.4 L Total Bilirubin 0.7 AST 24 ALT 26 Alkaline Phosphatase 219 H NT-Pro-B Natriuret Pep 44178 H Total Protein 7.1 Albumin 3.8 Globulin 3.3 Albumin/Globulin Ratio 1.1 Lipase 10 L 02/10/17 02/10/17 07:41 11:17 WBC RBC Hgb Hct MCV MCH MCHC RDW Plt Count MPV Neut % (Auto) Lymph % (Auto) [place] % (Auto) Eos % (Auto) Baso % (Auto) Neut # Lymph # [place] # Eos # Baso # Neutrophils % (Manual) Band Neutrophils % Lymphocytes % (Manual) Monocytes % (Manual) Eosinophils % (Manual) Platelet Estimate Poikilocytosis (manual Anisocytosis (manual) PT INR APTT Sodium Potassium Chloride Carbon Dioxide Anion Gap BUN Creatinine Est GFR ( Amer) Est GFR (Non-Af Amer) POC Glucose (mg/dL) 158 H 152 H Random Glucose Calcium Total Bilirubin AST ALT Alkaline Phosphatase NT-Pro-B Natriuret Pep Total Protein Albumin Globulin Albumin/Globulin Ratio Lipase Assessment & Plan - Assessment and Plan (Free Text) Assessment: 71 yo female patient with chronic ulceration to left heel 2/2 PVD Plan: Pt S&E at bedside Plan discussed with attending Dr. Stevens in detail Chart, labs and vitals reviewed: afebrile, WBC elevated 14.5 w/ left shift Low ext arterial duplex (02/04/17): R- occlusion R post tib artery, 50-75% stenosis right mid popliteal & proximal anterior tib arteries L- occlusion of left post tib artery, >75% stenosis left proximal ant tibial artery, 50-75% stenosis left distal SFA & proximal popliteal a. Left heel cleansed with sterile normal saline, santyl and DSD applied. Recommend offloading boots to be worn at all times while in bed. Will follow <Jordan Stevens - Last Filed: 02/11/17 07:02> Meds - Medications Medications: Current Medications Acetaminophen (Tylenol 325mg Tab) 650 mg PO Q6 PRN PRN Reason: fever/pain Allopurinol (Zyloprim) 100 mg PO DAILY [facility] Last Admin: 02/10/17 10:00 Dose: Not Given Brimonidine Tartrate (Alphagan 0.2% Opht) 1 ml OU TID [facility] Last Admin: 02/10/17 18:30 Dose: 1 drop Bumetanide (Bumex) 1 mg PO MWF [facility] Collagenase (Santyl) 0 gm TOP DAILY [facility] Last Admin: 02/10/17 11:44 Dose: 1 applic Ergocalciferol (Drisdol 50,000 Intl Units Cap) 1 cap PO QWK [facility] Last Admin: 02/10/17 10:00 Dose: Not Given Escitalopram Oxalate (Lexapro) 10 mg PO DAILY [facility] Last Admin: 02/10/17 10:00 Dose: Not Given Ferrous Sulfate (Feosol) 325 mg PO DAILY [facility] Last Admin: 02/10/17 10:00 Dose: Not Given Heparin Sodium (Porcine) (Heparin) 5,000 units SC Q8 [facility] Last Admin: 02/11/17 06:20 Dose: 5,000 units Hydralazine HCl (Apresoline) 50 mg PO BID [facility] Last Admin: 02/10/17 18:33 Dose: Not Given Metronidazole (Flagyl) 500 mg in 100 mls @ 100 mls/hr IVPB Q8 [facility] Last Admin: 02/11/17 06:20 Dose: 100 mls/hr Insulin Aspart (Novolog) 0 unit SC ACHS [facility] PRN Reason: Protocol Last Admin: 02/10/17 23:00 Dose: Not Given Latanoprost (Xalatan Opht) 1 ml OU HS [facility] Last Admin: 02/10/17 23:00 Dose: 1 ml Losartan Potassium (Cozaar) 100 mg PO DAILY [facility] Last Admin: 02/10/17 10:00 Dose: Not Given Morphine Sulfate (Morphine) 2 mg IVP Q4 PRN PRN Reason: pain Last Admin: 02/10/17 19:50 Dose: 2 mg Multivitamins (Hexavitamin) 1 tab PO DAILY [facility] Last Admin: 02/10/17 10:00 Dose: Not Given Ondansetron HCl (Zofran Inj) 4 mg IVP Q6H [facility] Last Admin: 02/11/17 06:20 Dose: 4 mg Pantoprazole Sodium (Protonix Inj) 40 mg IVP DAILY [facility] Last Admin: 02/10/17 11:07 Dose: 40 mg Rosuvastatin Calcium (Crestor) 20 mg PO HS [facility] Last Admin: 02/10/17 23:00 Dose: 20 mg Sevelamer Carbonate (Renvela) 800 mg PO TIDCC [facility] Last Admin: 02/10/17 17:00 Dose: Not Given Results - Vital Signs Recent Vital Signs: Last Vital Signs Temp 98.3 F 02/11/17 04:00 Pulse 69 02/11/17 04:01 Resp 16 02/11/17 04:01 BP 126/45 L 02/11/17 04:01 Pulse Ox 99 02/11/17 04:01 - Labs Result Diagrams: 02/10/17 02:22 02/11/17 06:05 Labs: Laboratory Results - last 24 hr 02/10/17 02/10/17 02/10/17 07:41 11:17 16:31 Sodium Potassium Chloride Carbon Dioxide Anion Gap BUN Creatinine Est GFR ( Amer) Est GFR (Non-Af Amer) POC Glucose (mg/dL) 158 H 152 H 150 H Random Glucose Calcium Phosphorus Magnesium Total Bilirubin AST ALT Alkaline Phosphatase Total Protein Albumin Globulin Albumin/Globulin Ratio 02/10/17 02/11/17 21:42 06:05 Sodium 135 Potassium 4.0 Chloride 95 L Carbon Dioxide 20 L Anion Gap 24 H BUN 44 H Creatinine 3.5 H Est GFR ( Amer) 16 Est GFR (Non-Af Amer) 13 POC Glucose (mg/dL) 126 H Random Glucose 174 H Calcium 8.4 L Phosphorus 7.3 H Magnesium 1.9 Total Bilirubin 0.5 AST 13 L D ALT 26 Alkaline Phosphatase 174 H D Total Protein 6.0 L Albumin 3.1 L Globulin 2.8 Albumin/Globulin Ratio 1.1
--- NOTE | 2017-02-10 14:34 | US ---
HISTORY: r/o cholecystitis COMPARISON: CT abdomen and pelvis with IV contrast performed 12/20/16 TECHNIQUE: Sonographic evaluation of the abdomen. FINDINGS: LIVER: Measures 18.8 cm in sagittal dimension. Echogenic liver may be seen in setting of hepatic parenchymal disease or fatty infiltration. No focal hepatic mass identified. The main portal vein appears patent with normal directional flow. No intrahepatic bile duct dilatation. GALLBLADDER: No gallstones. No gallbladder wall thickening. Negative sonographic Blancas's sign as assessed by the still cleaner tube. COMMON BILE DUCT: Measures 5 mm. No stones. No dilatation. PANCREAS: Not well visualized. RIGHT KIDNEY: Measures 11.1 x 5.2 x 6.0cm. 3 mm nonobstructing right renal calculus. No hydronephrosis. LEFT KIDNEY: Measures 12.3 x 4.4 x 4.1cm. No obstructing calculus or hydronephrosis identified. SPLEEN: Measures approximately 9.9 cm. AORTA: Limited views appear unremarkable. IVC: Limited views appear unremarkable. OTHER FINDINGS: None. IMPRESSION: Echogenic liver may be seen in setting of hepatic parenchymal disease or fatty infiltration. Nonobstructing 3 mm right renal calculus.
--- NOTE | 2017-02-10 16:00 | CP.PCM.CON ---
History of Present Illness - History of Present Illness History of Present Illness: Asked today to see pt for vomiting. and RN present H/O CRF, HD, DM, CHF, HTN, chronic foot ulcer- reports 5 days nausea and vomitin,. Reports epig pain- which is sore pain from vomiting. Denies constip, RB, PUD. Reports sl loose stool. Review of Systems - Constitutional Constitutional: Anorexia, Fatigue, Weight Loss, Weakness - Cardiovascular Cardiovascular: Dyspnea - Respiratory Respiratory: Cough. absent: Hemoptysis - Gastrointestinal Gastrointestinal: Abdominal Pain, Diarrhea, Loose Stools, Nausea, Vomiting. absent: Coffee Ground Emesis, Constipation, Dysphagia, Hematemesis, Hematochezia , Melena - Genitourinary Genitourinary: absent: Hematuria, Nocturia - Musculoskeletal Musculoskeletal: absent: Muscle Cramps - Integumentary Integumentary: absent: Jaundice - Neurological Neurological: absent: Convulsions Past Patient History - Infectious Disease Hx of Infectious Diseases: None - Tetanus Immunizations Tetanus Immunization: Unknown - Past Medical History & Family History Past Medical History?: Yes - Past Social History Smoking Status: Never Smoked - CARDIAC Hx Congestive Heart Failure: Yes Hx Hypercholesterolemia: Yes Hx Hypertension: Yes - PULMONARY Hx Respiratory Disorders: No - NEUROLOGICAL Hx Neurological Disorder: No - HEENT Hx HEENT Problems: Yes Hx Cataracts: Yes - RENAL Hx Chronic Kidney Disease: Yes - ENDOCRINE/METABOLIC Hx Endocrine Disorders: Yes Hx Diabetes Mellitus Type 2: Yes - HEMATOLOGICAL/ONCOLOGICAL Hx Anemia: Yes - INTEGUMENTARY Hx Dermatological Problems: No - MUSCULOSKELETAL/RHEUMATOLOGICAL Hx Musculoskeletal Disorders: Yes Hx Degenerative Joint Disease: Yes - GENITOURINARY/GYNECOLOGICAL Hx Genitourinary Disorders: Yes Hx Urinary Tract Infection: Yes - PSYCHIATRIC Hx Anxiety: Yes Hx Depression: Yes Hx Substance Use: No - SURGICAL HISTORY Hx Appendectomy: Yes - ANESTHESIA Hx Anesthesia: Yes Hx Anesthesia Reactions: No Hx Malignant Hyperthermia: No Meds Allergies/Adverse Reactions: Allergies Allergy/AdvReac Type Severity Reaction Status Date / Time No Known Allergies Allergy Verified 12/20/16 14:34 - Medications Medications: Current Medications Acetaminophen (Tylenol 325mg Tab) 650 mg PO Q6 PRN PRN Reason: fever/pain Allopurinol (Zyloprim) 100 mg PO DAILY [facility] Brimonidine Tartrate (Alphagan 0.2% Opht) 1 ml OU TID [facility] Last Admin: 02/10/17 14:34 Dose: 1 drop Bumetanide (Bumex) 1 mg PO MWF [facility] Collagenase (Santyl) 0 gm TOP DAILY [facility] Last Admin: 02/10/17 11:44 Dose: 1 applic Ergocalciferol (Drisdol 50,000 Intl Units Cap) 1 cap PO QWK [facility] Last Admin: 02/10/17 10:00 Dose: Not Given Escitalopram Oxalate (Lexapro) 10 mg PO DAILY [facility] Last Admin: 02/10/17 10:00 Dose: Not Given Ferrous Sulfate (Feosol) 325 mg PO DAILY [facility] Last Admin: 02/10/17 10:00 Dose: Not Given Heparin Sodium (Porcine) (Heparin) 5,000 units SC Q8 [facility] Last Admin: 02/10/17 14:33 Dose: 5,000 units Hydralazine HCl (Apresoline) 50 mg PO BID [facility] Last Admin: 02/10/17 10:00 Dose: Not Given Metronidazole (Flagyl) 500 mg in 100 mls @ 100 mls/hr IVPB Q8 [facility] Last Admin: 02/10/17 14:33 Dose: 100 mls/hr Insulin Aspart (Novolog) 0 unit SC ACHS [facility] PRN Reason: Protocol Last Admin: 02/10/17 11:23 Dose: Not Given Latanoprost (Xalatan Opht) 1 ml OU HS [facility] Losartan Potassium (Cozaar) 100 mg PO DAILY [facility] Last Admin: 02/10/17 10:00 Dose: Not Given Morphine Sulfate (Morphine) 2 mg IVP Q4 PRN PRN Reason: pain Last Admin: 02/10/17 15:10 Dose: 2 mg Multivitamins (Hexavitamin) 1 tab PO DAILY [facility] Last Admin: 02/10/17 10:00 Dose: Not Given Ondansetron HCl (Zofran Inj) 4 mg IVP Q6H [facility] Pantoprazole Sodium (Protonix Inj) 40 mg IVP DAILY [facility] Last Admin: 02/10/17 11:07 Dose: 40 mg Rosuvastatin Calcium (Crestor) 20 mg PO HS [facility] Sevelamer Carbonate (Renvela) 800 mg PO TIDCC [facility] Last Admin: 02/10/17 11:24 Dose: Not Given Physical Exam - Constitutional Appears: Older Than Stated Age - Neck Exam Neck exam: Negative for: Tenderness - Respiratory Exam Respiratory Exam: Decreased Breath Sounds, Rales - Cardiovascular Exam Cardiovascular Exam: RRR - GI/Abdominal Exam GI & Abdominal Exam: Normal Bowel Sounds, Soft. absent: Distended, Firm, Guarding, Mass, Rebound, Tenderness - Extremities Exam Additional comments: Foot ulcer - bandaged - Neurological Exam Neurological exam: Alert, Oriented x3 - Psychiatric Exam Psychiatric exam: Normal Mood - Skin Skin Exam: Intact Results - Vital Signs Recent Vital Signs: Last Vital Signs Temp 97.4 F L 02/10/17 15:57 Pulse 67 02/10/17 14:50 Resp 20 02/10/17 14:50 BP 174/60 H 02/10/17 14:50 Pulse Ox 92 L 02/10/17 13:01 - Labs Result Diagrams: 02/10/17 02:22 02/10/17 02:22 Labs: Laboratory Results - last 24 hr 02/10/17 02/10/17 02/10/17 02:22 02:22 02:22 WBC 14.5 H RBC 3.87 Hgb 11.1 Hct 34.3 MCV 88.6 D MCH 28.6 MCHC 32.3 L RDW 18.0 H Plt Count 583 H D MPV 9.0 Neut % (Auto) 82.9 H Lymph % (Auto) 6.4 L [place] % (Auto) 8.8 Eos % (Auto) 1.7 Baso % (Auto) 0.2 Neut # 12.0 H Lymph # 0.9 L [place] # 1.3 H Eos # 0.2 Baso # 0.0 Neutrophils % (Manual) 77 H Band Neutrophils % 5 H Lymphocytes % (Manual) 7 L Monocytes % (Manual) 10 Eosinophils % (Manual) 1 Platelet Estimate Slightly increased H Poikilocytosis (manual Slight Anisocytosis (manual) Slight PT 12.5 H INR 1.1 APTT 31 Sodium 133 Potassium 3.7 Chloride 92 L Carbon Dioxide 21 L Anion Gap 24 H BUN 65 H Creatinine 4.3 H Est GFR ( Amer) 12 Est GFR (Non-Af Amer) 10 POC Glucose (mg/dL) Random Glucose 151 H Calcium 8.4 L Total Bilirubin 0.7 AST 24 ALT 26 Alkaline Phosphatase 219 H NT-Pro-B Natriuret Pep 13814 H Total Protein 7.1 Albumin 3.8 Globulin 3.3 Albumin/Globulin Ratio 1.1 Lipase 10 L 02/10/17 02/10/17 07:41 11:17 WBC RBC Hgb Hct MCV MCH MCHC RDW Plt Count MPV Neut % (Auto) Lymph % (Auto) [place] % (Auto) Eos % (Auto) Baso % (Auto) Neut # Lymph # [place] # Eos # Baso # Neutrophils % (Manual) Band Neutrophils % Lymphocytes % (Manual) Monocytes % (Manual) Eosinophils % (Manual) Platelet Estimate Poikilocytosis (manual Anisocytosis (manual) PT INR APTT Sodium Potassium Chloride Carbon Dioxide Anion Gap BUN Creatinine Est GFR ( Amer) Est GFR (Non-Af Amer) POC Glucose (mg/dL) 158 H 152 H Random Glucose Calcium Total Bilirubin AST ALT Alkaline Phosphatase NT-Pro-B Natriuret Pep Total Protein Albumin Globulin Albumin/Globulin Ratio Lipase Assessment & Plan - Assessment and Plan (Free Text) Assessment: 1) N/V: consider metabolic- CRF, infection, sepsis, pneumonia, foot ulcer. Consider gastritis 2) Epig pain 3) CRF- HD 4) CHF hx 5) DM 6) Loose stools 7) Pneumonia- effusion 8) Foot ulcer 9) Fatty liver 10) Kidney stone REC: protonix, check lytes, check KUB
--- NOTE | 2017-02-10 20:47 | CP.PCM.CON ---
History of Present Illness - History of Present Illness History of Present Illness: REASONS FOR CONSULT : ESRD ON HD T T S ANEMIA OF CKD PT IS WELL KNOWN TO ME .. WITH MMP AND FREQUET ADMISSIONS Patient is a 71F with PMH of ESRD (dialysis TTS), CHF, HTN, DM2, depression, anemia of chronic disease, chronic low back pain, glaucoma and non-healing left heel ulcer (since October 08). The patients gave the majority of the history due to language barrier. Patients reports that the patient has been vomiting since night. She has not been able to tolerate anything orally since she began vomiting. She is now experiencing epigastric pain that she believes is just soreness as a result of the vomiting. The patient was dry heaving during the interview. The abdominal pain is a dull pain at rest but is extremely sharp when she begins to vomit. Patient denies any blood or coffee ground appearence in her vomit. Patient reports periodic episodes of watery diarrhea but it switches back and fourth between diarrhea and formed stool. The patient states that she is more in pain due to her heel than her abdomen. She reports that an ulcer developed in September of 2016. She has been following with Dr. Stevens (podiatry) but it has not healed. She is currently taking an antibiotic for the ulcer but the is unable to read his handwriting. She has been taking Tylenol at home for pain but it has not been helping. Patient reports some SOB and blurry vision but states this has been going on for a long period of time. She does not believe her breathing is any worse now than usual. Denies f/c, n/v, cp, numbness, tingling. PMD: Dr Myrick PMHx: ESRD (dialysis TTS), CHF, HTN, DM2, depression, anemia of chronic disease , chronic low back pain, glaucoma PSHx: Appendectomy, AV fistula, lower extremity artherectomy Allergies: NKDA Family history: not contributory Social History: Lives with in [place], denies any smoking, denies ETOH or drug abuse Present on Admission Past Patient History - Infectious Disease Hx of Infectious Diseases: None - Tetanus Immunizations Tetanus Immunization: Unknown - Past Medical History & Family History Past Medical History?: Yes - Past Social History Smoking Status: Never Smoked - CARDIAC Hx Congestive Heart Failure: Yes Hx Hypercholesterolemia: Yes Hx Hypertension: Yes - PULMONARY Hx Respiratory Disorders: No - NEUROLOGICAL Hx Neurological Disorder: No - HEENT Hx HEENT Problems: Yes Hx Cataracts: Yes - RENAL Hx Chronic Kidney Disease: Yes - ENDOCRINE/METABOLIC Hx Endocrine Disorders: Yes Hx Diabetes Mellitus Type 2: Yes - HEMATOLOGICAL/ONCOLOGICAL Hx Anemia: Yes - INTEGUMENTARY Hx Dermatological Problems: No - MUSCULOSKELETAL/RHEUMATOLOGICAL Hx Musculoskeletal Disorders: Yes Hx Degenerative Joint Disease: Yes - GENITOURINARY/GYNECOLOGICAL Hx Genitourinary Disorders: Yes Hx Urinary Tract Infection: Yes - PSYCHIATRIC Hx Anxiety: Yes Hx Depression: Yes Hx Substance Use: No - SURGICAL HISTORY Hx Appendectomy: Yes - ANESTHESIA Hx Anesthesia: Yes Hx Anesthesia Reactions: No Hx Malignant Hyperthermia: No Meds Allergies/Adverse Reactions: Allergies Allergy/AdvReac Type Severity Reaction Status Date / Time No Known Allergies Allergy Verified 12/20/16 14:34 - Medications Medications: Current Medications Acetaminophen (Tylenol 325mg Tab) 650 mg PO Q6 PRN PRN Reason: fever/pain Allopurinol (Zyloprim) 100 mg PO DAILY [facility] Last Admin: 02/10/17 10:00 Dose: Not Given Brimonidine Tartrate (Alphagan 0.2% Opht) 1 ml OU TID [facility] Last Admin: 02/10/17 18:30 Dose: 1 drop Bumetanide (Bumex) 1 mg PO MWF [facility] Collagenase (Santyl) 0 gm TOP DAILY [facility] Last Admin: 02/10/17 11:44 Dose: 1 applic Ergocalciferol (Drisdol 50,000 Intl Units Cap) 1 cap PO QWK [facility] Last Admin: 02/10/17 10:00 Dose: Not Given Escitalopram Oxalate (Lexapro) 10 mg PO DAILY [facility] Last Admin: 02/10/17 10:00 Dose: Not Given Ferrous Sulfate (Feosol) 325 mg PO DAILY [facility] Last Admin: 02/10/17 10:00 Dose: Not Given Heparin Sodium (Porcine) (Heparin) 5,000 units SC Q8 [facility] Last Admin: 02/10/17 14:33 Dose: 5,000 units Hydralazine HCl (Apresoline) 50 mg PO BID [facility] Last Admin: 02/10/17 18:33 Dose: Not Given Metronidazole (Flagyl) 500 mg in 100 mls @ 100 mls/hr IVPB Q8 [facility] Last Admin: 02/10/17 14:33 Dose: 100 mls/hr Insulin Aspart (Novolog) 0 unit SC ACHS ELINA PRN Reason: Protocol Last Admin: 02/10/17 16:30 Dose: Not Given Latanoprost (Xalatan Opht) 1 ml OU HS [facility] Losartan Potassium (Cozaar) 100 mg PO DAILY [facility] Last Admin: 02/10/17 10:00 Dose: Not Given Morphine Sulfate (Morphine) 2 mg IVP Q4 PRN PRN Reason: pain Last Admin: 02/10/17 19:50 Dose: 2 mg Multivitamins (Hexavitamin) 1 tab PO DAILY [facility] Last Admin: 02/10/17 10:00 Dose: Not Given Ondansetron HCl (Zofran Inj) 4 mg IVP Q6H [facility] Last Admin: 02/10/17 18:31 Dose: 4 mg Pantoprazole Sodium (Protonix Inj) 40 mg IVP DAILY [facility] Last Admin: 02/10/17 11:07 Dose: 40 mg Rosuvastatin Calcium (Crestor) 20 mg PO HS [facility] Sevelamer Carbonate (Renvela) 800 mg PO TIDCC [facility] Last Admin: 02/10/17 17:00 Dose: Not Given Results - Vital Signs Recent Vital Signs: Last Vital Signs Temp 97.5 F L 02/10/17 18:05 Pulse 67 02/10/17 20:00 Resp 21 02/10/17 20:00 BP 120/44 L 02/10/17 20:00 Pulse Ox 97 02/10/17 20:00 - Labs Result Diagrams: 02/10/17 02:22 02/10/17 02:22 Labs: Laboratory Results - last 24 hr 02/10/17 02/10/17 02/10/17 02:22 02:22 02:22 WBC 14.5 H RBC 3.87 Hgb 11.1 Hct 34.3 MCV 88.6 D MCH 28.6 MCHC 32.3 L RDW 18.0 H Plt Count 583 H D MPV 9.0 Neut % (Auto) 82.9 H Lymph % (Auto) 6.4 L [place] % (Auto) 8.8 Eos % (Auto) 1.7 Baso % (Auto) 0.2 Neut # 12.0 H Lymph # 0.9 L [place] # 1.3 H Eos # 0.2 Baso # 0.0 Neutrophils % (Manual) 77 H Band Neutrophils % 5 H Lymphocytes % (Manual) 7 L Monocytes % (Manual) 10 Eosinophils % (Manual) 1 Platelet Estimate Slightly increased H Poikilocytosis (manual Slight Anisocytosis (manual) Slight PT 12.5 H INR 1.1 APTT 31 Sodium 133 Potassium 3.7 Chloride 92 L Carbon Dioxide 21 L Anion Gap 24 H BUN 65 H Creatinine 4.3 H Est GFR ( Amer) 12 Est GFR (Non-Af Amer) 10 POC Glucose (mg/dL) Random Glucose 151 H Calcium 8.4 L Total Bilirubin 0.7 AST 24 ALT 26 Alkaline Phosphatase 219 H NT-Pro-B Natriuret Pep 42691 H Total Protein 7.1 Albumin 3.8 Globulin 3.3 Albumin/Globulin Ratio 1.1 Lipase 10 L 02/10/17 02/10/17 02/10/17 07:41 11:17 16:31 WBC RBC Hgb Hct MCV MCH MCHC RDW Plt Count MPV Neut % (Auto) Lymph % (Auto) [place] % (Auto) Eos % (Auto) Baso % (Auto) Neut # Lymph # [place] # Eos # Baso # Neutrophils % (Manual) Band Neutrophils % Lymphocytes % (Manual) Monocytes % (Manual) Eosinophils % (Manual) Platelet Estimate Poikilocytosis (manual Anisocytosis (manual) PT INR APTT Sodium Potassium Chloride Carbon Dioxide Anion Gap BUN Creatinine Est GFR ( Amer) Est GFR (Non-Af Amer) POC Glucose (mg/dL) 158 H 152 H 150 H Random Glucose Calcium Total Bilirubin AST ALT Alkaline Phosphatase NT-Pro-B Natriuret Pep Total Protein Albumin Globulin Albumin/Globulin Ratio Lipase Assessment & Plan - Assessment and Plan (Free Text) Assessment: ESRD ON HD T T S .. PT IS GETTING HER HD NOW ANEMIA OF CKD .. H/H GOOD .. NO NEED FOR EPO MULTIPLE CO MORBIDITIES P : HD NOW AND THEN T T S C/O CURRENT MEDS C/O PRESENT MEDS WILL F/U CLOSELY - Date & Time Date: 02/10/17 Time: 14:00
[2017-02-10] MEDS: Latanoprost 2.5 ml Opht Soln OU SCH (23:00)
[2017-02-11] MEDS: metroNIDAZOLE IV 500 mg/100 ml 500 MG/100 ML BAG IVPB SCH ×3 (06:20→21:54)
[2017-02-11 06:30] LABS: ALB/GLOB RATIO 1.1 (1.0-2.1); BILIRUBIN,TOTAL 0.5 mg/dL (0.2-1.3); CALCIUM 8.4 mg/dl (8.6-10.4); MAGNESIUM 1.9 mg/dL (1.6-2.3); PHOSPHOROUS 7.3 mg/dL (2.5-4.5)
[2017-02-11 07:04] LABS: BASO # 0.2 K/uL (0.0-0.2); BASO % 1.7 % (0.0-2.0); EOS # 0.3 K/uL (0.0-0.7); EOS % 2.4 % (0.0-4.0); HEMATOCRIT 34.1 % (34.0-47.0); LYMPH # 1.4 K/uL (1.0-4.3); LYMPH % 12.1 % (20.0-40.0); MEAN CORPUSCULAR HGB CONC 30.9 g/dL (33.0-37.0); MEAN PLATELET VOLUME 9.9 fL (7.2-11.7); MONO # 1.6 K/uL (0.0-0.8); MONO % 14.2 % (0.0-10.0); NRBC % 0.3 % (0.0-2.0); RED CELL DISTRIBUTION WIDTH 17.6 % (11.5-14.5); WHITE BLOOD COUNT 11.4 K/uL (4.8-10.8)
[2017-02-11 07:20] LABS: MEAN CELL VOLUME 90.6 fL (81.0-99.0)
[2017-02-11] MEDS: (Novolog) Insulin Aspart, Recombinant 100 u/ml 10 ml vial SC SCH ×4 (08:37→21:55)
[2017-02-11] MEDS: Brimonidine 0.2% Opth Sol (5ml) OU SCH ×3 (09:40→18:02)
[2017-02-11] MEDS: Multiple Vitamins Tab PO SCH (09:47)
--- NOTE | 2017-02-11 10:23 | CP.PCM.PN ---
Subjective - Date & Time of Evaluation Date of Evaluation: 02/11/17 Time of Evaluation: 07:00 - Subjective Subjective: PGY1- Medicine note- Dr. Myrick's Service Patient seen and examined at bedside and is still nauseous and vomiting this morning. Patient states last episode of vomiting was this morning which was in a santiago. Vomit was clear without blood or color. Patient says she has mild abdominal pain that is improving with decreased frequency of vomiting. Patient states last bowel movement was last night and she hasn't gone again because she hasn't been able to eat. Patient admits mild SOB. Patient denies fever, chills, chest pain, palpitations, numbness, or tingling. Objective - Vital Signs/Intake and Output Vital Signs (last 24 hours): Temp Pulse Resp BP Pulse Ox 98.2 F 73 13 143/38 L 100 02/11/17 08:00 02/11/17 08:01 02/11/17 08:01 02/11/17 08:01 02/11/17 08:01 Intake and Output: 02/11/17 02/11/17 06:59 18:59 Intake Total 510 Balance 510 - Medications Medications: Current Medications Acetaminophen (Tylenol 325mg Tab) 650 mg PO Q6 PRN PRN Reason: fever/pain Allopurinol (Zyloprim) 100 mg PO DAILY [facility] Last Admin: 02/11/17 09:47 Dose: Not Given Brimonidine Tartrate (Alphagan 0.2% Opht) 1 ml OU TID [facility] Last Admin: 02/11/17 09:40 Dose: 1 drop Bumetanide (Bumex) 1 mg PO MWF [facility] Last Admin: 02/11/17 09:59 Dose: Not Given Collagenase (Santyl) 0 gm TOP DAILY [facility] Last Admin: 02/10/17 11:44 Dose: 1 applic Ergocalciferol (Drisdol 50,000 Intl Units Cap) 1 cap PO QWK [facility] Last Admin: 02/10/17 10:00 Dose: Not Given Escitalopram Oxalate (Lexapro) 10 mg PO DAILY [facility] Last Admin: 02/11/17 09:47 Dose: Not Given Ferrous Sulfate (Feosol) 325 mg PO DAILY [facility] Last Admin: 02/11/17 09:48 Dose: Not Given Heparin Sodium (Porcine) (Heparin) 5,000 units SC Q8 [facility] Last Admin: 02/11/17 06:20 Dose: 5,000 units Hydralazine HCl (Apresoline) 50 mg PO BID [facility] Last Admin: 02/11/17 09:58 Dose: Not Given Metronidazole (Flagyl) 500 mg in 100 mls @ 100 mls/hr IVPB Q8 [facility] Last Admin: 02/11/17 06:20 Dose: 100 mls/hr Insulin Aspart (Novolog) 0 unit SC ACHS ELINA PRN Reason: Protocol Last Admin: 02/11/17 08:37 Dose: Not Given Latanoprost (Xalatan Opht) 1 ml OU HS [facility] Last Admin: 02/10/17 23:00 Dose: 1 ml Losartan Potassium (Cozaar) 100 mg PO DAILY [facility] Last Admin: 02/11/17 09:48 Dose: Not Given Morphine Sulfate (Morphine) 2 mg IVP Q4 PRN PRN Reason: pain Last Admin: 02/10/17 19:50 Dose: 2 mg Multivitamins (Hexavitamin) 1 tab PO DAILY [facility] Last Admin: 02/11/17 09:47 Dose: Not Given Ondansetron HCl (Zofran Inj) 4 mg IVP Q6H [facility] Last Admin: 02/11/17 06:20 Dose: 4 mg Pantoprazole Sodium (Protonix Inj) 40 mg IVP DAILY [facility] Last Admin: 02/11/17 09:41 Dose: 40 mg Rosuvastatin Calcium (Crestor) 20 mg PO HS [facility] Last Admin: 02/10/17 23:00 Dose: 20 mg Sevelamer Carbonate (Renvela) 800 mg PO TIDCC [facility] Last Admin: 02/11/17 08:37 Dose: Not Given - Labs Labs: 02/11/17 06:05 02/11/17 06:05 PT 12.5 SECONDS (9.7-12.2) H 02/10/17 02:22 INR 1.1 02/10/17 02:22 APTT 31 SECONDS (21-34) 02/10/17 02:22 - Constitutional Appears: Non-toxic, No Acute Distress - Head Exam Head Exam: ATRAUMATIC, NORMAL INSPECTION, NORMOCEPHALIC - Eye Exam Eye Exam: EOMI, Normal appearance - ENT Exam ENT Exam: Mucous Membranes Moist - Neck Exam Neck Exam: Full ROM. absent: Tenderness - Respiratory Exam Respiratory Exam: Clear to Ausculation Bilateral, NORMAL BREATHING PATTERN. absent: Rales, Rhonchi, Wheezes, Respiratory Distress, Stridor - Cardiovascular Exam Cardiovascular Exam: REGULAR RHYTHM, RRR. absent: Gallop, Rubs, Murmur - GI/Abdominal Exam GI & Abdominal Exam: Soft, Tenderness, Normal Bowel Sounds - Extremities Exam Extremities Exam: Pedal Edema - Neurological Exam Neurological Exam: Alert, Awake, Oriented x3 - Psychiatric Exam Psychiatric exam: Normal Affect, Normal Mood - Skin Skin Exam: Intact, Warm Additional comments: b/l pedal edema and erythema full thickness left heel ulceration Assessment and Plan - Assessment and Plan (Free Text) Assessment: Leukocytosis 02/11: WBC 11.4 WBC 14.5 with left shift, Bands 5 (02/10) Patient does not meet SIRS criteria CXR 02/10/17 - Prominent confluent consolidation seen within the left mid to lower lung zone with associated moderate to large left pleural effusion. Moderate venous congestion with patchy right basilar airspace opacity. Right central venous catheter tip extending into the right atrium. No obvious change from previous study on 12/20/16. Flagyl 500mg IVPB Q8H started 02/10/17 Vanco 1gm IV one time dose f/u C. diff study (possible due to recent abx use) MRSA: negative Vomiting See above plan for leukocytosis Zofran 4mg IVPB Q6H for 2 days abdominal u/s 02/10:echogenic liver may be seen in setting of hepatic parenchymal disease or fatty infiltration. nonobstructing 3 mm right renal calculus GI consulted, Dr. Posaad, help appreciated ESRD Dialysis TTS - missed Thursday HD due to vomiting. patient received dialysis on 02/10 Restarted patient's home medications: Renvela 800mg PO TIDCC Nephro consult - Dr. Ambrose, help appreciated Non-Healing Left Heel Ulcer Podiatry consult - Dr. Stevens Restarted patient's home medications: Santyl topical Low ext arterial duplex (02/04/17): R- occlusion R post tib artery, 50-75% stenosis right mid popliteal & proximal anterior tib arteries L- occlusion of left post tib artery, >75% stenosis left proximal ant tibial artery, 50-75% stenosis left distal SFA & proximal popliteal a. f/u podiatry recs: patient to wear offloading boots HTN w/hx of CHF Pro BNP 02/10/17 - [id number] (on 12/20 = [id number]) ECHO 10/23/16 - there is a small to moderate circumferential pericardial effusion. No evidence of tamponade. The left ventricular systolic function is normal. Elevated left atrial pressure by Tissue Doppler. The right centricular systolic function is normal. There is a trace aortic regurgiation. Mild mitral regurgitation. There is mild to moderate tricuspid regurgiation. Mild pulmonary hypertension (please see full report) CXR 02/10/17 - Prominent confluent consolidation seen within the left mid to lower lung zone with associated moderate to large left pleural effusion. Moderate venous congestion with patchy right basilar airspace opacity. Right central venous catheter tip extending into the right atrium. No obvious change from previous study on 12/20/16. Restarted patient's home medications: - Cozaar 100mg PO daily - Hydralazine 25mg PO BID - Bumetanide 1mg PO BID MWF Diabetes Started on insulin sliding scale for now. Need further investigation to determine patient's insulin regiment. Glaucoma Restarted patient's home medications: Latanoprost 0.005% 1 drop per eye HS Brimonidine 0.2% 1 drop per eye TID Depression Restarted patient's home medications: Lexapro 10mg PO daily Prophylaxis Heparin 5000u sc q8h Protonix 40mg IVP daily Restarted home medications: Ergocalciferol 1 cap PO QWK Multivitamin 1 tab daily Case discussed with Dr. Myrick
--- NOTE | 2017-02-11 12:05 | CP.PCM.PN ---
Subjective - Date & Time of Evaluation Date of Evaluation: 02/11/17 Time of Evaluation: 12:02 - Subjective Subjective: CC: Vomiting Pt in ICU Vomiting/retching with food intake No Abdominal pain. + BMs Multiple medical problems including CRF, DM, Vasculopathy, HTN I suspect gastroparesis secondary to acute illness and Diabetes/renal failure Rec: Trial of IV Erythromycin. If not responding try Reglan. We are away until Feb 14. If we are needed please call covering Dr Daily. Objective - Vital Signs/Intake and Output Vital Signs (last 24 hours): Temp Pulse Resp BP Pulse Ox 98.2 F 73 13 143/38 L 100 02/11/17 08:00 02/11/17 08:01 02/11/17 08:01 02/11/17 08:01 02/11/17 08:01 Intake and Output: 02/11/17 02/11/17 06:59 18:59 Intake Total 510 50 Balance 510 50 - Medications Medications: Current Medications Acetaminophen (Tylenol 325mg Tab) 650 mg PO Q6 PRN PRN Reason: fever/pain Allopurinol (Zyloprim) 100 mg PO DAILY [facility] Last Admin: 02/11/17 09:47 Dose: Not Given Brimonidine Tartrate (Alphagan 0.2% Opht) 1 ml OU TID [facility] Last Admin: 02/11/17 09:40 Dose: 1 drop Bumetanide (Bumex) 1 mg PO MWF [facility] Last Admin: 02/11/17 09:59 Dose: Not Given Collagenase (Santyl) 0 gm TOP DAILY [facility] Last Admin: 02/10/17 11:44 Dose: 1 applic Ergocalciferol (Drisdol 50,000 Intl Units Cap) 1 cap PO QWK [facility] Last Admin: 02/10/17 10:00 Dose: Not Given Escitalopram Oxalate (Lexapro) 10 mg PO DAILY [facility] Last Admin: 02/11/17 09:47 Dose: Not Given Ferrous Sulfate (Feosol) 325 mg PO DAILY [facility] Last Admin: 02/11/17 09:48 Dose: Not Given Heparin Sodium (Porcine) (Heparin) 5,000 units SC Q8 [facility] Last Admin: 02/11/17 06:20 Dose: 5,000 units Hydralazine HCl (Apresoline) 50 mg PO BID [facility] Last Admin: 02/11/17 09:58 Dose: Not Given Metronidazole (Flagyl) 500 mg in 100 mls @ 100 mls/hr IVPB Q8 [facility] Last Admin: 02/11/17 06:20 Dose: 100 mls/hr Insulin Aspart (Novolog) 0 unit SC ACHS [facility]INA PRN Reason: Protocol Last Admin: 02/11/17 08:37 Dose: Not Given Latanoprost (Xalatan Opht) 1 ml OU HS [facility] Last Admin: 02/10/17 23:00 Dose: 1 ml Losartan Potassium (Cozaar) 100 mg PO DAILY [facility] Last Admin: 02/11/17 09:48 Dose: Not Given Morphine Sulfate (Morphine) 2 mg IVP Q4 PRN PRN Reason: pain Last Admin: 02/10/17 19:50 Dose: 2 mg Multivitamins (Hexavitamin) 1 tab PO DAILY [facility] Last Admin: 02/11/17 09:47 Dose: Not Given Ondansetron HCl (Zofran Inj) 4 mg IVP Q6H [facility] Last Admin: 02/11/17 06:20 Dose: 4 mg Pantoprazole Sodium (Protonix Inj) 40 mg IVP DAILY [facility] Last Admin: 02/11/17 09:41 Dose: 40 mg Rosuvastatin Calcium (Crestor) 20 mg PO HS [facility] Last Admin: 02/10/17 23:00 Dose: 20 mg Sevelamer Carbonate (Renvela) 800 mg PO TIDCC [facility] Last Admin: 02/11/17 08:37 Dose: Not Given - Labs Labs: 02/11/17 06:05 02/11/17 06:05 PT 12.5 SECONDS (9.7-12.2) H 02/10/17 02:22 INR 1.1 02/10/17 02:22 APTT 31 SECONDS (21-34) 02/10/17 02:22 - Constitutional Appears: Chronically Ill (Frail appearing) - Head Exam Head Exam: NORMOCEPHALIC - Eye Exam Eye Exam: absent: Scleral icterus - Respiratory Exam Respiratory Exam: NORMAL BREATHING PATTERN - Cardiovascular Exam Cardiovascular Exam: REGULAR RHYTHM - GI/Abdominal Exam GI & Abdominal Exam: Soft, Normal Bowel Sounds. absent: Tenderness, Mass Assessment and Plan (1) End stage renal disease on dialysis Status: Acute (2) Nausea & vomiting Assessment & Plan: Gastroparesis secondary to underlying illness Rec: Erthromycin trial. If not better then try Reglan 5 mg. Away until Feb 14. Dr Daily covering if we are needed. Status: Acute (3) Diabetes Status: Acute
[2017-02-11] MEDS: Collagenase 250 Units/gm Ointment(30 gm) TOP SCH (18:06)
[2017-02-11] MEDS: Latanoprost 2.5 ml Opht Soln OU SCH (21:56)
--- NOTE | 2017-02-12 | CP.PCM.PN ---
Subjective - Date & Time of Evaluation Date of Evaluation: 02/11/17 Time of Evaluation: 16:00 - Subjective Subjective: SEEN ON RENAL F/U ON HD T T S STILL WITH N@V .. WAS SEEN BY GI Objective - Vital Signs/Intake and Output Vital Signs (last 24 hours): Temp Pulse Resp BP Pulse Ox 98.2 F 74 21 113/47 L 99 02/11/17 20:00 02/11/17 20:00 02/11/17 20:00 02/11/17 19:58 02/11/17 20:00 Intake and Output: 02/11/17 02/12/17 18:59 06:59 Intake Total 150 250 Balance 150 250 - Medications Medications: Current Medications Acetaminophen (Tylenol 325mg Tab) 650 mg PO Q6 PRN PRN Reason: fever/pain Allopurinol (Zyloprim) 100 mg PO DAILY [facility] Last Admin: 02/11/17 09:47 Dose: Not Given Brimonidine Tartrate (Alphagan 0.2% Opht) 1 ml OU TID [facility] Last Admin: 02/11/17 18:02 Dose: 1 drop Bumetanide (Bumex) 1 mg PO MWF [facility] Last Admin: 02/11/17 09:59 Dose: Not Given Collagenase (Santyl) 0 gm TOP DAILY [facility] Last Admin: 02/11/17 18:06 Dose: 1 applic Ergocalciferol (Drisdol 50,000 Intl Units Cap) 1 cap PO QWK [facility] Last Admin: 02/10/17 10:00 Dose: Not Given Escitalopram Oxalate (Lexapro) 10 mg PO DAILY [facility] Last Admin: 02/11/17 09:47 Dose: Not Given Ferrous Sulfate (Feosol) 325 mg PO DAILY [facility] Last Admin: 02/11/17 09:48 Dose: Not Given Heparin Sodium (Porcine) (Heparin) 5,000 units SC Q8 [facility] Last Admin: 02/11/17 21:56 Dose: 5,000 units Hydralazine HCl (Apresoline) 50 mg PO BID [facility] Last Admin: 02/11/17 18:02 Dose: 50 mg Metronidazole (Flagyl) 500 mg in 100 mls @ 100 mls/hr IVPB Q8 [facility] Last Admin: 02/11/17 21:54 Dose: 100 mls/hr Insulin Aspart (Novolog) 0 unit SC ACHS [facility] PRN Reason: Protocol Last Admin: 02/11/17 21:55 Dose: 4 unit Latanoprost (Xalatan Opht) 1 ml OU HS [facility] Last Admin: 02/11/17 21:56 Dose: 1 ml Losartan Potassium (Cozaar) 100 mg PO DAILY [facility] Last Admin: 02/11/17 09:48 Dose: Not Given Metoclopramide HCl (Reglan) 5 mg IVP TID [facility] Stop: 02/13/17 10:00 Last Admin: 02/11/17 18:01 Dose: 5 mg Morphine Sulfate (Morphine) 2 mg IVP Q4 PRN PRN Reason: pain Last Admin: 02/10/17 19:50 Dose: 2 mg Multivitamins (Hexavitamin) 1 tab PO DAILY [facility] Last Admin: 02/11/17 09:47 Dose: Not Given Ondansetron HCl (Zofran Inj) 4 mg IVP Q6H [facility] Last Admin: 02/11/17 18:01 Dose: 4 mg Pantoprazole Sodium (Protonix Inj) 40 mg IVP DAILY [facility] Last Admin: 02/11/17 09:41 Dose: 40 mg Rosuvastatin Calcium (Crestor) 20 mg PO HS [facility] Last Admin: 02/11/17 21:54 Dose: 20 mg Sevelamer Carbonate (Renvela) 800 mg PO TIDCC [facility] Last Admin: 02/11/17 18:03 Dose: Not Given - Labs Labs: 02/11/17 06:05 02/11/17 06:05 PT 12.5 SECONDS (9.7-12.2) H 02/10/17 02:22 INR 1.1 02/10/17 02:22 APTT 31 SECONDS (21-34) 02/10/17 02:22 Assessment and Plan - Assessment and Plan (Free Text) Assessment: ESRD ON HD TTS .. TO BE C/O ANEMIA OF CKD .. H/H STABLE N@V .. R/O D GASTROPERESIS .. WAS STARTED ON REGLAN BY GI C/O CURRENT CARE
[2017-02-12] MEDS: metroNIDAZOLE IV 500 mg/100 ml 500 MG/100 ML BAG IVPB SCH ×2 (06:16→14:52)
[2017-02-12] MEDS ORDERED: (Novolog) Insulin Aspart, Recombinant 100 u/ml 10 ml vial SC SCH ×2 (07:28→07:45)
--- NOTE | 2017-02-12 07:50 | CP.PCM.PN ---
Subjective - Date & Time of Evaluation Date of Evaluation: 02/12/17 Time of Evaluation: 07:00 - Subjective Subjective: PGY1- Medicine Note- Dr. Myrick's Service Patient seen and examined at bedside. Patient is sitting up. Patient is still nauseous and vomiting this morning. Patient continuously dry heaving when speaking to her. Vomit was seen in a [place] this morning which was still clear without any food, blood, or color. Patient states that she still has not been able to eat and that she has abdominal soreness due to constant vomiting. Last bowel movement was last night which patient states was watery diarrhea. Patient admits to mild SOB. Patient denies fever, chills, chest pain, palpitations, numbness, or tingling. Objective - Vital Signs/Intake and Output Vital Signs (last 24 hours): Temp Pulse Resp BP Pulse Ox 98.2 F 75 20 148/54 L 96 02/12/17 01:05 02/12/17 03:38 02/12/17 01:05 02/12/17 01:05 02/12/17 01:05 Intake and Output: 02/12/17 02/12/17 06:59 18:59 Intake Total 250 Balance 250 - Medications Medications: Current Medications Acetaminophen (Tylenol 325mg Tab) 650 mg PO Q6 PRN PRN Reason: fever/pain Allopurinol (Zyloprim) 100 mg PO DAILY [facility] Last Admin: 02/11/17 09:47 Dose: Not Given Brimonidine Tartrate (Alphagan 0.2% Opht) 1 ml OU TID [facility] Last Admin: 02/11/17 18:02 Dose: 1 drop Bumetanide (Bumex) 1 mg PO MWF [facility] Last Admin: 02/11/17 09:59 Dose: Not Given Collagenase (Santyl) 0 gm TOP DAILY [facility] Last Admin: 02/11/17 18:06 Dose: 1 applic Ergocalciferol (Drisdol 50,000 Intl Units Cap) 1 cap PO QWK [facility] Last Admin: 02/10/17 10:00 Dose: Not Given Escitalopram Oxalate (Lexapro) 10 mg PO DAILY [facility] Last Admin: 02/11/17 09:47 Dose: Not Given Ferrous Sulfate (Feosol) 325 mg PO DAILY [facility] Last Admin: 02/11/17 09:48 Dose: Not Given Heparin Sodium (Porcine) (Heparin) 5,000 units SC Q8 [facility] Last Admin: 02/12/17 06:19 Dose: 5,000 units Hydralazine HCl (Apresoline) 50 mg PO BID [facility] Last Admin: 02/11/17 18:02 Dose: 50 mg Metronidazole (Flagyl) 500 mg in 100 mls @ 100 mls/hr IVPB Q8 [facility] Last Admin: 02/12/17 06:16 Dose: 100 mls/hr Insulin Aspart (Novolog) 0 unit SC ACHS ELINA PRN Reason: Protocol Latanoprost (Xalatan Opht) 1 ml OU HS [facility] Last Admin: 02/11/17 21:56 Dose: 1 ml Losartan Potassium (Cozaar) 100 mg PO DAILY [facility] Last Admin: 02/11/17 09:48 Dose: Not Given Metoclopramide HCl (Reglan) 5 mg IVP TID [facility] Stop: 02/13/17 10:00 Last Admin: 02/11/17 18:01 Dose: 5 mg Morphine Sulfate (Morphine) 2 mg IVP Q4 PRN PRN Reason: pain Last Admin: 02/10/17 19:50 Dose: 2 mg Multivitamins (Hexavitamin) 1 tab PO DAILY [facility] Last Admin: 02/11/17 09:47 Dose: Not Given Ondansetron HCl (Zofran Inj) 4 mg IVP Q6H [facility] Last Admin: 02/12/17 06:14 Dose: 4 mg Pantoprazole Sodium (Protonix Inj) 40 mg IVP DAILY [facility] Last Admin: 02/11/17 09:41 Dose: 40 mg Rosuvastatin Calcium (Crestor) 20 mg PO HS [facility] Last Admin: 02/11/17 21:54 Dose: 20 mg Sevelamer Carbonate (Renvela) 800 mg PO TIDCC [facility] Last Admin: 02/11/17 18:03 Dose: Not Given - Labs Labs: 02/11/17 06:05 02/11/17 06:05 PT 12.5 SECONDS (9.7-12.2) H 02/10/17 02:22 INR 1.1 02/10/17 02:22 APTT 31 SECONDS (21-34) 02/10/17 02:22 - Constitutional Appears: Non-toxic, No Acute Distress - Head Exam Head Exam: ATRAUMATIC, NORMAL INSPECTION, NORMOCEPHALIC - Eye Exam Eye Exam: EOMI, Normal appearance - ENT Exam ENT Exam: Mucous Membranes Moist - Neck Exam Neck Exam: Full ROM. absent: Tenderness - Respiratory Exam Respiratory Exam: Clear to Ausculation Bilateral, NORMAL BREATHING PATTERN. absent: Rales, Rhonchi, Wheezes, Respiratory Distress, Stridor - Cardiovascular Exam Cardiovascular Exam: REGULAR RHYTHM, RRR - GI/Abdominal Exam GI & Abdominal Exam: Soft, Normal Bowel Sounds - Extremities Exam Extremities Exam: Full ROM, Pedal Edema - Neurological Exam Neurological Exam: Alert, Awake, Oriented x3 - Psychiatric Exam Psychiatric exam: Normal Affect, Normal Mood - Skin Skin Exam: Erythema, Intact, Warm Assessment and Plan - Assessment and Plan (Free Text) Assessment: Leukocytosis 02/11: WBC 11.4 WBC 14.5 with left shift, Bands 5 (02/10) Patient does not meet SIRS criteria CXR 02/10/17 - Prominent confluent consolidation seen within the left mid to lower lung zone with associated moderate to large left pleural effusion. Moderate venous congestion with patchy right basilar airspace opacity. Right central venous catheter tip extending into the right atrium. No obvious change from previous study on 12/20/16. Flagyl 500mg IVPB Q8H started 02/10/17 Vanco 1gm IV one time dose f/u C. diff study (possible due to recent abx use) MRSA: negative Vomiting See above plan for leukocytosis Zofran 4mg IVPB Q6H for 2 days abdominal u/s 02/10:echogenic liver may be seen in setting of hepatic parenchymal disease or fatty infiltration. nonobstructing 3 mm right renal calculus GI consulted, Dr. Posada, help appreciated ESRD Dialysis TTS - missed Thursday HD due to vomiting. patient received dialysis on 02/10 Restarted patient's home medications: Renvela 800mg PO TIDCC Nephro consult - Dr. Ambrose, help appreciated Non-Healing Left Heel Ulcer Podiatry consult - Dr. Stevens Restarted patient's home medications: Santyl topical Low ext arterial duplex (02/04/17): R- occlusion R post tib artery, 50-75% stenosis right mid popliteal & proximal anterior tib arteries L- occlusion of left post tib artery, >75% stenosis left proximal ant tibial artery, 50-75% stenosis left distal SFA & proximal popliteal a. f/u podiatry recs: patient to wear offloading boots HTN w/hx of CHF Pro BNP 02/10/17 - [id number] (on 12/20 = [id number]) ECHO 10/23/16 - there is a small to moderate circumferential pericardial effusion. No evidence of tamponade. The left ventricular systolic function is normal. Elevated left atrial pressure by Tissue Doppler. The right centricular systolic function is normal. There is a trace aortic regurgiation. Mild mitral regurgitation. There is mild to moderate tricuspid regurgiation. Mild pulmonary hypertension (please see full report) CXR 02/10/17 - Prominent confluent consolidation seen within the left mid to lower lung zone with associated moderate to large left pleural effusion. Moderate venous congestion with patchy right basilar airspace opacity. Right central venous catheter tip extending into the right atrium. No obvious change from previous study on 12/20/16. Restarted patient's home medications: - Cozaar 100mg PO daily - Hydralazine 25mg PO BID - Bumetanide 1mg PO BID MWF Diabetes Started on insulin sliding scale for now. Lantus 20 u BID started on 02/12 Glaucoma Restarted patient's home medications: Latanoprost 0.005% 1 drop per eye HS Brimonidine 0.2% 1 drop per eye TID Depression Restarted patient's home medications: Lexapro 10mg PO daily Prophylaxis Heparin 5000u sc q8h Protonix 40mg IVP daily Restarted home medications: Ergocalciferol 1 cap PO QWK Multivitamin 1 tab daily Case discussed with Dr. Myrick
[2017-02-12] MEDS: (Novolog) Insulin Aspart, Recombinant 100 u/ml 10 ml vial SC SCH ×4 (08:00→22:59)
--- NOTE | 2017-02-12 08:43 | CP.PCM.PN ---
<Jordan Stevens - Last Filed: 02/12/17 08:42> Subjective - Date & Time of Evaluation Date of Evaluation: 02/12/17 Time of Evaluation: 08:42 - Subjective Subjective: Pt seen for ulcer left heel chronic in nature .C/O nausea this AM . Objective - Vital Signs/Intake and Output Vital Signs (last 24 hours): Temp Pulse Resp BP Pulse Ox 97.6 F 86 20 118/41 L 95 02/12/17 08:11 02/12/17 08:11 02/12/17 08:11 02/12/17 08:11 02/12/17 08:11 Intake and Output: 02/12/17 02/12/17 06:59 18:59 Intake Total 250 Balance 250 - Medications Medications: Current Medications Acetaminophen (Tylenol 325mg Tab) 650 mg PO Q6 PRN PRN Reason: fever/pain Allopurinol (Zyloprim) 100 mg PO DAILY [facility] Last Admin: 02/11/17 09:47 Dose: Not Given Brimonidine Tartrate (Alphagan 0.2% Opht) 1 ml OU TID [facility] Last Admin: 02/11/17 18:02 Dose: 1 drop Bumetanide (Bumex) 1 mg PO MWF [facility] Last Admin: 02/11/17 09:59 Dose: Not Given Collagenase (Santyl) 0 gm TOP DAILY [facility] Last Admin: 02/11/17 18:06 Dose: 1 applic Ergocalciferol (Drisdol 50,000 Intl Units Cap) 1 cap PO QWK [facility] Last Admin: 02/10/17 10:00 Dose: Not Given Escitalopram Oxalate (Lexapro) 10 mg PO DAILY [facility] Last Admin: 02/11/17 09:47 Dose: Not Given Ferrous Sulfate (Feosol) 325 mg PO DAILY [facility] Last Admin: 02/11/17 09:48 Dose: Not Given Heparin Sodium (Porcine) (Heparin) 5,000 units SC Q8 [facility] Last Admin: 02/12/17 06:19 Dose: 5,000 units Hydralazine HCl (Apresoline) 50 mg PO BID [facility] Last Admin: 02/11/17 18:02 Dose: 50 mg Metronidazole (Flagyl) 500 mg in 100 mls @ 100 mls/hr IVPB Q8 [facility] Last Admin: 02/12/17 06:16 Dose: 100 mls/hr Insulin Aspart (Novolog) 0 unit SC ACHS ELINA PRN Reason: Protocol Last Admin: 02/12/17 08:00 Dose: 8 unit Latanoprost (Xalatan Opht) 1 ml OU HS [facility] Last Admin: 02/11/17 21:56 Dose: 1 ml Losartan Potassium (Cozaar) 100 mg PO DAILY [facility] Last Admin: 02/11/17 09:48 Dose: Not Given Metoclopramide HCl (Reglan) 5 mg IVP TID [facility] Stop: 02/13/17 10:00 Last Admin: 02/11/17 18:01 Dose: 5 mg Morphine Sulfate (Morphine) 2 mg IVP Q4 PRN PRN Reason: pain Last Admin: 02/10/17 19:50 Dose: 2 mg Multivitamins (Hexavitamin) 1 tab PO DAILY [facility] Last Admin: 02/11/17 09:47 Dose: Not Given Ondansetron HCl (Zofran Inj) 4 mg IVP Q6H [facility] Last Admin: 02/12/17 06:14 Dose: 4 mg Pantoprazole Sodium (Protonix Inj) 40 mg IVP DAILY [facility] Last Admin: 02/11/17 09:41 Dose: 40 mg Rosuvastatin Calcium (Crestor) 20 mg PO HS [facility] Last Admin: 02/11/17 21:54 Dose: 20 mg Sevelamer Carbonate (Renvela) 800 mg PO TIDCC [facility] Last Admin: 02/11/17 18:03 Dose: Not Given - Labs Labs: 02/11/17 06:05 02/11/17 06:05 PT 12.5 SECONDS (9.7-12.2) H 02/10/17 02:22 INR 1.1 02/10/17 02:22 APTT 31 SECONDS (21-34) 02/10/17 02:22 <[place] - Last Filed: 02/12/17 13:52> Subjective - Subjective Subjective: Pt seen at bedside this morning for follow-up of left chronic heel ulcer. Pt is complaining of nausea this morning. Does complain of some tenderness to the heel today. Objective - Vital Signs/Intake and Output Vital Signs (last 24 hours): Temp Pulse Resp BP Pulse Ox 98 F 86 18 162/62 H 100 02/12/17 12:36 02/12/17 12:36 02/12/17 12:36 02/12/17 12:25 02/12/17 12:36 Intake and Output: 02/12/17 02/12/17 06:59 18:59 Intake Total 250 Balance 250 - Medications Medications: Current Medications Acetaminophen (Tylenol 325mg Tab) 650 mg PO Q6 PRN PRN Reason: fever/pain Allopurinol (Zyloprim) 100 mg PO DAILY [facility] Last Admin: 02/11/17 09:47 Dose: Not Given Brimonidine Tartrate (Alphagan 0.2% Opht) 1 ml OU TID [facility] Last Admin: 02/11/17 18:02 Dose: 1 drop Bumetanide (Bumex) 1 mg PO MWF [facility] Last Admin: 02/11/17 09:59 Dose: Not Given Collagenase (Santyl) 0 gm TOP DAILY [facility] Last Admin: 02/11/17 18:06 Dose: 1 applic Ergocalciferol (Drisdol 50,000 Intl Units Cap) 1 cap PO QWK [facility] Last Admin: 02/10/17 10:00 Dose: Not Given Escitalopram Oxalate (Lexapro) 10 mg PO DAILY [facility] Last Admin: 02/11/17 09:47 Dose: Not Given Ferrous Sulfate (Feosol) 325 mg PO DAILY [facility] Last Admin: 02/11/17 09:48 Dose: Not Given Heparin Sodium (Porcine) (Heparin) 5,000 units SC Q8 [facility] Last Admin: 02/12/17 06:19 Dose: 5,000 units Heparin Sodium (Porcine) (Heparin) 3,700 units IVP TTS [facility] Stop: 02/17/17 10:01 Last Admin: 02/12/17 13:01 Dose: 3,700 units Hydralazine HCl (Apresoline) 50 mg PO BID [facility] Last Admin: 02/11/17 18:02 Dose: 50 mg Metronidazole (Flagyl) 500 mg in 100 mls @ 100 mls/hr IVPB Q8 [facility] Last Admin: 02/12/17 06:16 Dose: 100 mls/hr Insulin Aspart (Novolog) 0 unit SC ACHS [facility] PRN Reason: Protocol Last Admin: 02/12/17 08:00 Dose: 8 unit Insulin Glargine (Lantus) 20 unit SC BID [facility] Latanoprost (Xalatan Opht) 1 ml OU HS [facility] Last Admin: 02/11/17 21:56 Dose: 1 ml Losartan Potassium (Cozaar) 100 mg PO DAILY [facility] Last Admin: 02/11/17 09:48 Dose: Not Given Metoclopramide HCl (Reglan) 5 mg IVP TID [facility] Stop: 02/13/17 10:00 Last Admin: 02/12/17 09:03 Dose: 5 mg Morphine Sulfate (Morphine) 2 mg IVP Q4 PRN PRN Reason: pain Last Admin: 02/10/17 19:50 Dose: 2 mg Multivitamins (Hexavitamin) 1 tab PO DAILY [facility] Last Admin: 02/11/17 09:47 Dose: Not Given Ondansetron HCl (Zofran Inj) 4 mg IVP Q6H [facility] Last Admin: 02/12/17 06:14 Dose: 4 mg Pantoprazole Sodium (Protonix Inj) 40 mg IVP DAILY [facility] Last Admin: 02/11/17 09:41 Dose: 40 mg Rosuvastatin Calcium (Crestor) 20 mg PO HS [facility] Last Admin: 02/11/17 21:54 Dose: 20 mg Sevelamer Carbonate (Renvela) 800 mg PO TIDCC [facility] Last Admin: 02/12/17 08:51 Dose: Not Given - Labs Labs: 02/11/17 06:05 02/12/17 08:14 PT 12.5 SECONDS (9.7-12.2) H 02/10/17 02:22 INR 1.1 02/10/17 02:22 APTT 31 SECONDS (21-34) 02/10/17 02:22 - Constitutional Appears: Non-toxic, No Acute Distress - Extremities Exam Additional comments: VASC- DP pulse is palpable, PT pulse non-palp, skin temp runs warm to cool ( proximal to distal), cap refill <3 sec to all digits, no pedal edema appreciated DERM-there is a full thickness ulceration noted to plantar lateral aspect of calcaneus with dusky coloration of skin noted laterally, there is no drainage, no purulence, no fluctuance, no erythema, no signs infection NEURO- gross pedal sensation is intact ORTHO- tenderness noted on palpation of posterior-lateral aspect of calcaneus, tenderness noted on palpation of posterior lateral aspect of left leg (no pain on deep compression of calf) - Neurological Exam Neurological Exam: Alert, Awake - Psychiatric Exam Psychiatric exam: Normal Affect, Normal Mood Assessment and Plan - Assessment and Plan (Free Text) Assessment: 71 yo female patient with chronic ulceration to left heel 2/2 PVD Plan: Pt S&E at bedside, Dr. Stevens present Chart, labs and vitals reviewed: afebrile, WBC 11.4 Low ext arterial duplex (02/04/17): R- occlusion R post tib artery, 50-75% stenosis right mid popliteal & proximal anterior tib arteries L- occlusion of left post tib artery, >75% stenosis left proximal ant tibial artery, 50-75% stenosis left distal SFA & proximal popliteal a. Left heel cleansed with sterile normal saline, santyl and DSD applied. Recommend c/w offloading boots to be worn at all times while in bed. Will follow
[2017-02-12 08:52] LABS: MAGNESIUM 1.9 mg/dL (1.6-2.3); PHOSPHOROUS 8.1 mg/dL (2.5-4.5)
[2017-02-12 09:59] LABS: POTASSIUM 4.8 mmol/L (3.6-5.2)
[2017-02-12] MEDS: Brimonidine 0.2% Opth Sol (5ml) OU SCH ×3 (10:00→18:00)
[2017-02-12] MEDS: Collagenase 250 Units/gm Ointment(30 gm) TOP SCH (10:00)
[2017-02-12 10:02] LABS: ALB/GLOB RATIO 1.2 (1.0-2.1); BILIRUBIN,TOTAL 0.7 mg/dL (0.2-1.3); CALCIUM 8.2 mg/dl (8.6-10.4); TOTAL PROTEIN 6.3 g/dL (6.3-8.3)
[2017-02-12] MEDS ORDERED: (Novolin R) Insulin Human Regular 100 units/ml vial SC ONE (10:45)
[2017-02-12] MEDS: Multiple Vitamins Tab PO SCH (14:41)
--- NOTE | 2017-02-12 17:37 | CP.PCM.PN ---
Subjective - Date & Time of Evaluation Date of Evaluation: 02/12/17 Time of Evaluation: 15:00 - Subjective Subjective: SEEN ON RENAL F/U STILL WITH N@V .. BUT BETTER C/O DIARHIA WHILE ON HD YESTERDAY ALL PREVIOUS EMR REVIEWED Objective - Vital Signs/Intake and Output Vital Signs (last 24 hours): Temp Pulse Resp BP Pulse Ox 98.3 F 84 22 169/51 H 96 02/12/17 15:30 02/12/17 15:30 02/12/17 15:30 02/12/17 15:30 02/12/17 15:30 Intake and Output: 02/12/17 02/12/17 06:59 18:59 Intake Total 250 Balance 250 - Medications Medications: Current Medications Acetaminophen (Tylenol 325mg Tab) 650 mg PO Q6 PRN PRN Reason: fever/pain Allopurinol (Zyloprim) 100 mg PO DAILY [facility] Last Admin: 02/12/17 14:41 Dose: 100 mg Brimonidine Tartrate (Alphagan 0.2% Opht) 1 ml OU TID [facility] Last Admin: 02/11/17 18:02 Dose: 1 drop Bumetanide (Bumex) 1 mg PO MWF [facility] Last Admin: 02/11/17 09:59 Dose: Not Given Collagenase (Santyl) 0 gm TOP DAILY [facility] Last Admin: 02/11/17 18:06 Dose: 1 applic Ergocalciferol (Drisdol 50,000 Intl Units Cap) 1 cap PO QWK [facility] Last Admin: 02/10/17 10:00 Dose: Not Given Escitalopram Oxalate (Lexapro) 10 mg PO DAILY [facility] Last Admin: 02/12/17 14:42 Dose: 10 mg Ferrous Sulfate (Feosol) 325 mg PO DAILY [facility] Last Admin: 02/12/17 14:54 Dose: 325 mg Heparin Sodium (Porcine) (Heparin) 5,000 units SC Q8 [facility] Last Admin: 02/12/17 14:54 Dose: 5,000 units Heparin Sodium (Porcine) (Heparin) 3,700 units IVP TTS [facility] Stop: 02/17/17 10:01 Last Admin: 02/12/17 13:01 Dose: 3,700 units Hydralazine HCl (Apresoline) 50 mg PO BID [facility] Last Admin: 02/12/17 14:42 Dose: 50 mg Metronidazole (Flagyl) 500 mg in 100 mls @ 100 mls/hr IVPB Q8 [facility] Last Admin: 02/12/17 14:52 Dose: 100 mls/hr Insulin Aspart (Novolog) 0 unit SC ACHS [facility] PRN Reason: Protocol Last Admin: 02/12/17 08:00 Dose: 8 unit Insulin Glargine (Lantus) 20 unit SC BID [facility] Latanoprost (Xalatan Opht) 1 ml OU HS [facility] Last Admin: 02/11/17 21:56 Dose: 1 ml Losartan Potassium (Cozaar) 100 mg PO DAILY [facility] Last Admin: 02/12/17 14:41 Dose: 100 mg Metoclopramide HCl (Reglan) 5 mg IVP TID [facility] Stop: 02/13/17 10:00 Last Admin: 02/12/17 09:03 Dose: 5 mg Morphine Sulfate (Morphine) 2 mg IVP Q4 PRN PRN Reason: pain Last Admin: 02/10/17 19:50 Dose: 2 mg Multivitamins (Hexavitamin) 1 tab PO DAILY [facility] Last Admin: 02/12/17 14:41 Dose: 1 tab Ondansetron HCl (Zofran Inj) 4 mg IVP Q6H [facility] Last Admin: 02/12/17 06:14 Dose: 4 mg Pantoprazole Sodium (Protonix Inj) 40 mg IVP DAILY [facility] Last Admin: 02/11/17 09:41 Dose: 40 mg Rosuvastatin Calcium (Crestor) 20 mg PO HS [facility] Last Admin: 02/11/17 21:54 Dose: 20 mg Sevelamer Carbonate (Renvela) 800 mg PO TIDCC [facility] Last Admin: 02/12/17 08:51 Dose: Not Given - Labs Labs: 02/11/17 06:05 02/12/17 08:14 PT 12.5 SECONDS (9.7-12.2) H 02/10/17 02:22 INR 1.1 02/10/17 02:22 APTT 31 SECONDS (21-34) 02/10/17 02:22 Assessment and Plan - Assessment and Plan (Free Text) Assessment: ESRD ON HD T T S .. TO BE C/O ANEMIA OF CKD .. H/H GOOD .. EPO ON HOLD D GASTROPERESIS .. ON REGLAN MULTIPLE CO MORBIDITIES NEEDS BETTER CONTROLE OF DM TO HELP D. GASTROPERESIS
[2017-02-12] MEDS ORDERED: Vancomycin 250 MG in Sodium Chloride 0.9% 100 ML IVPB SCH (18:00)
[2017-02-12] MEDS: (Lantus) Insulin Glargine, Recombinant SC SCH (21:04)
[2017-02-12] MEDS: Latanoprost 2.5 ml Opht Soln OU SCH (21:46)
[2017-02-13] MEDS: (Novolog) Insulin Aspart, Recombinant 100 u/ml 10 ml vial SC SCH ×4 (07:56→22:38)
[2017-02-13 08:37] LABS: BASO % 0.3 % (0.0-2.0); EOS # 0.1 K/uL (0.0-0.7); EOS % 0.7 % (0.0-4.0); HEMATOCRIT 30.2 % (34.0-47.0); LYMPH # 1.1 K/uL (1.0-4.3); LYMPH % 12.1 % (20.0-40.0); MEAN CORPUSCULAR HEMOGLOBIN 28.1 pg (27.0-31.0); MEAN CORPUSCULAR HGB CONC 31.7 g/dL (33.0-37.0); MEAN PLATELET VOLUME 8.4 fL (7.2-11.7); MONO # 1.4 K/uL (0.0-0.8); RED CELL DISTRIBUTION WIDTH 17.2 % (11.5-14.5); WHITE BLOOD COUNT 9.1 K/uL (4.8-10.8)
[2017-02-13 08:38] LABS: MEAN CELL VOLUME 88.6 fL (81.0-99.0)
[2017-02-13 08:44] LABS: POTASSIUM 4.1 mmol/L (3.6-5.2)
[2017-02-13 08:46] LABS: BILIRUBIN,TOTAL 0.6 mg/dL (0.2-1.3)
[2017-02-13 08:47] LABS: CALCIUM 8.6 mg/dl (8.6-10.4); MAGNESIUM 1.9 mg/dL (1.6-2.3); PHOSPHOROUS 6.3 mg/dL (2.5-4.5); TOTAL PROTEIN 6.2 g/dL (6.3-8.3)
[2017-02-13 08:48] LABS: ALB/GLOB RATIO 1.1 (1.0-2.1)
--- NOTE | 2017-02-13 08:57 | CP.PCM.PN ---
<Jordan Stevens - Last Filed: 02/13/17 08:55> Subjective - Date & Time of Evaluation Date of Evaluation: 02/13/17 Time of Evaluation: 08:55 - Subjective Subjective: Pt seen at bedside for heel ulcer chronic in nature .Pt is seen and treated by Dr Stevens at bedside . Objective - Vital Signs/Intake and Output Vital Signs (last 24 hours): Temp Pulse Resp BP Pulse Ox 98.0 F 82 20 154/64 H 94 L 02/13/17 07:05 02/13/17 07:05 02/13/17 07:05 02/13/17 07:05 02/13/17 07:05 Intake and Output: 02/13/17 02/13/17 06:59 18:59 Intake Total 60 Balance 60 - Medications Medications: Current Medications Acetaminophen (Tylenol 325mg Tab) 650 mg PO Q6 PRN PRN Reason: fever/pain Allopurinol (Zyloprim) 100 mg PO DAILY [facility] Last Admin: 02/12/17 14:41 Dose: 100 mg Brimonidine Tartrate (Alphagan 0.2% Opht) 1 ml OU TID [facility] Last Admin: 02/12/17 18:00 Dose: Not Given Bumetanide (Bumex) 1 mg PO MWF [facility] Last Admin: 02/11/17 09:59 Dose: Not Given Collagenase (Santyl) 0 gm TOP DAILY [facility] Last Admin: 02/12/17 10:00 Dose: Not Given Ergocalciferol (Drisdol 50,000 Intl Units Cap) 1 cap PO QWK [facility] Last Admin: 02/10/17 10:00 Dose: Not Given Escitalopram Oxalate (Lexapro) 10 mg PO DAILY [facility] Last Admin: 02/12/17 14:42 Dose: 10 mg Ferrous Sulfate (Feosol) 325 mg PO DAILY [facility] Last Admin: 02/12/17 14:54 Dose: 325 mg Heparin Sodium (Porcine) (Heparin) 5,000 units SC Q8 [facility] Last Admin: 02/13/17 05:44 Dose: Not Given Heparin Sodium (Porcine) (Heparin) 3,700 units IVP TTS [facility] Stop: 02/17/17 10:01 Last Admin: 02/12/17 13:01 Dose: 3,700 units Hydralazine HCl (Apresoline) 50 mg PO BID [facility] Last Admin: 02/12/17 18:00 Dose: Not Given Vancomycin HCl 250 mg/ Sodium (Chloride) 100 mls @ 100 mls/hr IVPB Q6H [facility] Insulin Aspart (Novolog) 0 unit SC ACHS [facility] PRN Reason: Protocol Last Admin: 02/13/17 07:56 Dose: 4 unit Insulin Glargine (Lantus) 20 unit SC BID [facility] Last Admin: 02/12/17 21:04 Dose: 20 unit Latanoprost (Xalatan Opht) 1 ml OU HS [facility] Last Admin: 02/12/17 21:46 Dose: 1 ml Losartan Potassium (Cozaar) 100 mg PO DAILY [facility] Last Admin: 02/12/17 14:41 Dose: 100 mg Metoclopramide HCl (Reglan) 5 mg IVP TID [facility] Stop: 02/13/17 10:00 Last Admin: 02/12/17 21:05 Dose: 5 mg Morphine Sulfate (Morphine) 2 mg IVP Q4 PRN PRN Reason: pain Last Admin: 02/10/17 19:50 Dose: 2 mg Multivitamins (Hexavitamin) 1 tab PO DAILY [facility] Last Admin: 02/12/17 14:41 Dose: 1 tab Ondansetron HCl (Zofran Inj) 4 mg IVP Q6H [facility] Last Admin: 02/13/17 05:44 Dose: Not Given Pantoprazole Sodium (Protonix Inj) 40 mg IVP DAILY [facility] Last Admin: 02/12/17 10:00 Dose: Not Given Rosuvastatin Calcium (Crestor) 20 mg PO HS [facility] Last Admin: 02/12/17 21:11 Dose: Not Given Sevelamer Carbonate (Renvela) 800 mg PO TIDCC [facility] Last Admin: 02/13/17 07:41 Dose: Not Given - Labs Labs: 02/13/17 08:29 02/13/17 08:29 PT 12.5 SECONDS (9.7-12.2) H 02/10/17 02:22 INR 1.1 02/10/17 02:22 APTT 31 SECONDS (21-34) 02/10/17 02:22 <Tsering Michaels - Last Filed: 02/13/17 13:42> Subjective - Subjective Subjective: 71 yo diabetic female seen at bedside this morning with Dr. Stevens present. Pt appears quite lethargic this morning, but is able to answer questions. is present at bedside today. Pt denies any pain or discomfort to the foot today. Says nausea is somewhat better, admits to having some diarrhea recently. Denies f/c/sob/cp. No other complaints offered today. Objective - Vital Signs/Intake and Output Vital Signs (last 24 hours): Temp Pulse Resp BP Pulse Ox 98.0 F 82 20 154/64 H 94 L 02/13/17 07:05 02/13/17 07:05 02/13/17 07:05 02/13/17 07:05 02/13/17 07:05 Intake and Output: 02/13/17 02/13/17 06:59 18:59 Intake Total 60 Balance 60 - Medications Medications: Current Medications Acetaminophen (Tylenol 325mg Tab) 650 mg PO Q6 PRN PRN Reason: fever/pain Allopurinol (Zyloprim) 100 mg PO DAILY [facility] Last Admin: 02/13/17 09:54 Dose: Not Given Brimonidine Tartrate (Alphagan 0.2% Opht) 1 ml OU TID [facility] Last Admin: 02/13/17 09:50 Dose: 1 drop Bumetanide (Bumex) 1 mg PO MWF [facility] Last Admin: 02/13/17 09:51 Dose: 1 mg Collagenase (Santyl) 0 gm TOP DAILY [facility] Last Admin: 02/13/17 09:54 Dose: 1 applic Ergocalciferol (Drisdol 50,000 Intl Units Cap) 1 cap PO QWK [facility] Last Admin: 02/10/17 10:00 Dose: Not Given Escitalopram Oxalate (Lexapro) 10 mg PO DAILY [facility] Last Admin: 02/13/17 09:53 Dose: Not Given Ferrous Sulfate (Feosol) 325 mg PO DAILY [facility] Last Admin: 02/13/17 09:53 Dose: Not Given Heparin Sodium (Porcine) (Heparin) 5,000 units SC Q8 [facility] Last Admin: 02/13/17 05:44 Dose: Not Given Heparin Sodium (Porcine) (Heparin) 3,700 units IVP TTS [facility] Stop: 02/17/17 10:01 Last Admin: 02/12/17 13:01 Dose: 3,700 units Hydralazine HCl (Apresoline) 50 mg PO BID [facility] Last Admin: 02/13/17 09:53 Dose: Not Given Insulin Aspart (Novolog) 0 unit SC ACHS [facility] PRN Reason: Protocol Last Admin: 02/13/17 11:55 Dose: 4 unit Insulin Glargine (Lantus) 20 unit SC BID [facility] Last Admin: 02/13/17 09:50 Dose: 20 unit Latanoprost (Xalatan Opht) 1 ml OU HS [facility] Last Admin: 02/12/17 21:46 Dose: 1 ml Losartan Potassium (Cozaar) 100 mg PO DAILY [facility] Last Admin: 02/13/17 10:06 Dose: Not Given Morphine Sulfate (Morphine) 2 mg IVP Q4 PRN PRN Reason: pain Last Admin: 02/10/17 19:50 Dose: 2 mg Multivitamins (Hexavitamin) 1 tab PO DAILY [facility] Last Admin: 02/13/17 10:07 Dose: Not Given Ondansetron HCl (Zofran Inj) 4 mg IVP Q6H [facility] Last Admin: 02/13/17 11:43 Dose: 4 mg Pantoprazole Sodium (Protonix Ec Tab) 40 mg PO DAILY [facility] Last Admin: 02/13/17 09:54 Dose: Not Given Rosuvastatin Calcium (Crestor) 20 mg PO HS [facility] Sevelamer Carbonate (Renvela) 800 mg PO TIDCC [facility] Last Admin: 02/13/17 11:42 Dose: Not Given Vancomycin HCl (Vancocin (Oral Or Rectal Use)) 125 mg PO QID [facility] - Labs Labs: 02/13/17 08:29 02/13/17 08:29 PT 12.5 SECONDS (9.7-12.2) H 02/10/17 02:22 INR 1.1 02/10/17 02:22 APTT 31 SECONDS (21-34) 02/10/17 02:22 - Constitutional Appears: Non-toxic, No Acute Distress - Extremities Exam Extremities Exam: absent: Calf Tenderness Additional comments: VASC- DP pulse is palpable, PT pulse non-palp, skin temp runs warm to cool ( proximal to distal), cap refill <3 sec to all digits, no pedal edema appreciated DERM-there is a full thickness ulceration noted to plantar lateral aspect of calcaneus with dusky coloration of skin noted laterally, there is no drainage, no purulence, no fluctuance, no erythema, no signs infection NEURO- gross pedal sensation is intact ORTHO- tenderness noted on palpation of posterior-lateral aspect of calcaneus, tenderness noted on palpation of posterior lateral aspect of left leg (no pain on deep compression of calf) - Neurological Exam Neurological Exam: Alert, Oriented x3 - Psychiatric Exam Psychiatric exam: Normal Affect, Normal Mood Assessment and Plan - Assessment and Plan (Free Text) Assessment: 71 yo female patient with chronic ulceration to left heel 2/2 PVD Plan: Pt S&E at bedside Plan discussed with attending Dr. Stevens in detail Chart, labs and vitals reviewed: afebrile, leukocytosis resolved Low ext arterial duplex (02/04/17): R- occlusion R post tib artery, 50-75% stenosis right mid popliteal & proximal anterior tib arteries L- occlusion of left post tib artery, >75% stenosis left proximal ant tibial artery, 50-75% stenosis left distal SFA & proximal popliteal a. Left heel cleansed with sterile normal saline, santyl and DSD applied. Stable as per podiatry Recommend offloading boots to be worn at all times while in bed. Will follow
[2017-02-13] MEDS: (Lantus) Insulin Glargine, Recombinant SC SCH ×2 (09:50→18:53)
[2017-02-13] MEDS: Brimonidine 0.2% Opth Sol (5ml) OU SCH ×3 (09:50→18:52)
[2017-02-13] MEDS: Collagenase 250 Units/gm Ointment(30 gm) TOP SCH (09:54)
[2017-02-13] MEDS: Pantoprazole 40 mg EC Tab PO SCH (09:54)
[2017-02-13] MEDS: Multiple Vitamins Tab PO SCH (10:07)
[2017-02-13] MEDS: Vancomycin 125 MG/5 ML SOLN (ORAL/RECTAL) PO SCH ×3 (13:53→22:44)
--- NOTE | 2017-02-13 18:07 | CP.PCM.PN ---
Subjective - Date & Time of Evaluation Date of Evaluation: 02/13/17 Time of Evaluation: 07:00 - Subjective Subjective: PGY1- Medicine Note- Dr. Myrick's Service. Patient seen and examined at bedside and in no acute distress. Patient is still nauseous and vomited once this morning. Patient states that she still has not been able to eat and that she has abdominal soreness due to her vomiting. Patient admits to mild SOB. Patient denies fever, chills, chest pain, palpitations, numbness, or tingling. Objective - Vital Signs/Intake and Output Vital Signs (last 24 hours): Temp Pulse Resp BP Pulse Ox 98.0 F 72 20 114/62 95 02/13/17 15:00 02/13/17 15:00 02/13/17 15:00 02/13/17 15:00 02/13/17 15:00 Intake and Output: 02/13/17 02/13/17 06:59 18:59 Intake Total 60 Balance 60 - Medications Medications: Current Medications Acetaminophen (Tylenol 325mg Tab) 650 mg PO Q6 PRN PRN Reason: fever/pain Allopurinol (Zyloprim) 100 mg PO DAILY [facility] Last Admin: 02/13/17 09:54 Dose: Not Given Brimonidine Tartrate (Alphagan 0.2% Opht) 1 ml OU TID [facility] Last Admin: 02/13/17 13:52 Dose: 1 drop Bumetanide (Bumex) 1 mg PO MWF [facility] Last Admin: 02/13/17 09:51 Dose: 1 mg Collagenase (Santyl) 0 gm TOP DAILY [facility] Last Admin: 02/13/17 09:54 Dose: 1 applic Ergocalciferol (Drisdol 50,000 Intl Units Cap) 1 cap PO QWK [facility] Last Admin: 02/10/17 10:00 Dose: Not Given Escitalopram Oxalate (Lexapro) 10 mg PO DAILY [facility] Last Admin: 02/13/17 09:53 Dose: Not Given Ferrous Sulfate (Feosol) 325 mg PO DAILY [facility] Last Admin: 02/13/17 09:53 Dose: Not Given Heparin Sodium (Porcine) (Heparin) 5,000 units SC Q8 [facility] Last Admin: 02/13/17 13:54 Dose: Not Given Heparin Sodium (Porcine) (Heparin) 3,700 units IVP TTS [facility] Stop: 02/17/17 10:01 Last Admin: 02/12/17 13:01 Dose: 3,700 units Hydralazine HCl (Apresoline) 50 mg PO BID [facility] Last Admin: 02/13/17 09:53 Dose: Not Given Insulin Aspart (Novolog) 0 unit SC ACHS [facility] PRN Reason: Protocol Last Admin: 02/13/17 11:55 Dose: 4 unit Insulin Glargine (Lantus) 30 unit SC BID [facility] Latanoprost (Xalatan Opht) 1 ml OU HS [facility] Last Admin: 02/12/17 21:46 Dose: 1 ml Losartan Potassium (Cozaar) 100 mg PO DAILY [facility] Last Admin: 02/13/17 10:06 Dose: Not Given Methylprednisolone (Solu-Medrol) 40 mg IVP STAT [facility] Stop: 02/13/17 18:07 Morphine Sulfate (Morphine) 2 mg IVP Q4 PRN PRN Reason: pain Last Admin: 02/10/17 19:50 Dose: 2 mg Multivitamins (Hexavitamin) 1 tab PO DAILY [facility] Last Admin: 02/13/17 10:07 Dose: Not Given Ondansetron HCl (Zofran Inj) 4 mg IVP Q6H [facility] Pantoprazole Sodium (Protonix Ec Tab) 40 mg PO DAILY [facility] Last Admin: 02/13/17 09:54 Dose: Not Given Rosuvastatin Calcium (Crestor) 20 mg PO HS [facility] Sevelamer Carbonate (Renvela) 800 mg PO TIDCC [facility] Last Admin: 02/13/17 11:42 Dose: Not Given Vancomycin HCl (Vancocin (Oral Or Rectal Use)) 125 mg PO QID [facility] Last Admin: 02/13/17 13:53 Dose: Not Given - Labs Labs: 02/13/17 08:29 02/13/17 08:29 PT 12.5 SECONDS (9.7-12.2) H 02/10/17 02:22 INR 1.1 02/10/17 02:22 APTT 31 SECONDS (21-34) 02/10/17 02:22 - Constitutional Appears: Non-toxic, No Acute Distress - Head Exam Head Exam: ATRAUMATIC, NORMAL INSPECTION, NORMOCEPHALIC - Eye Exam Eye Exam: EOMI, Normal appearance - ENT Exam ENT Exam: Mucous Membranes Dry - Neck Exam Neck Exam: Full ROM - Respiratory Exam Respiratory Exam: Clear to Ausculation Bilateral, NORMAL BREATHING PATTERN - Cardiovascular Exam Cardiovascular Exam: REGULAR RHYTHM, RRR - GI/Abdominal Exam GI & Abdominal Exam: Soft, Normal Bowel Sounds - Extremities Exam Extremities Exam: Full ROM, Pedal Edema, Tenderness - Neurological Exam Neurological Exam: Alert, Awake, Oriented x3 - Psychiatric Exam Psychiatric exam: Anxious, Normal Affect - Skin Skin Exam: Dry, Erythema, Warm Assessment and Plan - Assessment and Plan (Free Text) Assessment: Leukocytosis 02/13: WBC- 9.1 02/11: WBC 11.4 WBC 14.5 with left shift, Bands 5 (02/10) Patient does not meet SIRS criteria CXR 02/10/17 - Prominent confluent consolidation seen within the left mid to lower lung zone with associated moderate to large left pleural effusion. Moderate venous congestion with patchy right basilar airspace opacity. Right central venous catheter tip extending into the right atrium. No obvious change from previous study on 12/20/16. Flagyl 500mg IVPB Q8H started 02/10/17 and stopped on 02/12 Vanco 125mg po QID MRSA: negative f/u C. diff study (possible due to recent abx use) Vomiting See above plan for leukocytosis Zofran 4mg IVPB Q6H advanced to renal diet on 02/13 abdominal u/s 02/10:echogenic liver may be seen in setting of hepatic parenchymal disease or fatty infiltration. nonobstructing 3 mm right renal calculus GI consulted, Dr. Posada, help appreciated ESRD Dialysis TTS - missed Thursday HD due to vomiting. patient received dialysis on 02/10 Restarted patient's home medications: Renvela 800mg PO TIDCC Nephro consult - Dr. Ambrose, help appreciated Non-Healing Left Heel Ulcer Podiatry consult - Dr. Stevens Restarted patient's home medications: Santyl topical Low ext arterial duplex (02/04/17): R- occlusion R post tib artery, 50-75% stenosis right mid popliteal & proximal anterior tib arteries L- occlusion of left post tib artery, >75% stenosis left proximal ant tibial artery, 50-75% stenosis left distal SFA & proximal popliteal a. f/u podiatry recs: patient to wear offloading boots HTN w/hx of CHF Pro BNP 02/10/17 - [id number] (on 12/20 = [id number]) ECHO 10/23/16 - there is a small to moderate circumferential pericardial effusion. No evidence of tamponade. The left ventricular systolic function is normal. Elevated left atrial pressure by Tissue Doppler. The right centricular systolic function is normal. There is a trace aortic regurgiation. Mild mitral regurgitation. There is mild to moderate tricuspid regurgiation. Mild pulmonary hypertension (please see full report) CXR 02/10/17 - Prominent confluent consolidation seen within the left mid to lower lung zone with associated moderate to large left pleural effusion. Moderate venous congestion with patchy right basilar airspace opacity. Right central venous catheter tip extending into the right atrium. No obvious change from previous study on 12/20/16. Restarted patient's home medications: - Cozaar 100mg PO daily - Hydralazine 25mg PO BID - Bumetanide 1mg PO BID MWF Diabetes Started on insulin sliding scale for now. Lantus 30 u BID started on 02/13 (increased from 20 u bid) Glaucoma Restarted patient's home medications: Latanoprost 0.005% 1 drop per eye HS Brimonidine 0.2% 1 drop per eye TID Depression Restarted patient's home medications: Lexapro 10mg PO daily Prophylaxis Heparin 5000u sc q8h Protonix 40mg IVP daily Restarted home medications: Ergocalciferol 1 cap PO QWK Multivitamin 1 tab daily Case discussed with Dr. Myrick
[2017-02-13] MEDS ORDERED: MethylPREDNISolone 40 mg Vial IVP ONE (18:30)
[2017-02-13] MEDS: Latanoprost 2.5 ml Opht Soln OU SCH (22:44)
--- NOTE | 2017-02-13 23:47 | CP.PCM.PN ---
Subjective - Date & Time of Evaluation Date of Evaluation: 02/13/17 Time of Evaluation: 15:00 - Subjective Subjective: SEEN ON RENAL F/U STILL WITH N @ V ON HD T T S Objective - Vital Signs/Intake and Output Vital Signs (last 24 hours): Temp Pulse Resp BP Pulse Ox 98.0 F 71 20 114/62 95 02/13/17 15:00 02/13/17 18:00 02/13/17 15:00 02/13/17 15:00 02/13/17 15:00 - Medications Medications: Current Medications Acetaminophen (Tylenol 325mg Tab) 650 mg PO Q6 PRN PRN Reason: fever/pain Last Admin: 02/13/17 22:48 Dose: 650 mg Allopurinol (Zyloprim) 100 mg PO DAILY [facility] Last Admin: 02/13/17 09:54 Dose: Not Given Brimonidine Tartrate (Alphagan 0.2% Opht) 1 ml OU TID [facility] Last Admin: 02/13/17 18:52 Dose: 1 drop Bumetanide (Bumex) 1 mg PO MWF [facility] Last Admin: 02/13/17 09:51 Dose: 1 mg Collagenase (Santyl) 0 gm TOP DAILY [facility] Last Admin: 02/13/17 09:54 Dose: 1 applic Ergocalciferol (Drisdol 50,000 Intl Units Cap) 1 cap PO QWK [facility] Last Admin: 02/10/17 10:00 Dose: Not Given Escitalopram Oxalate (Lexapro) 10 mg PO DAILY [facility] Last Admin: 02/13/17 09:53 Dose: Not Given Ferrous Sulfate (Feosol) 325 mg PO DAILY [facility] Last Admin: 02/13/17 09:53 Dose: Not Given Heparin Sodium (Porcine) (Heparin) 5,000 units SC Q8 [facility] Last Admin: 02/13/17 22:45 Dose: Not Given Heparin Sodium (Porcine) (Heparin) 3,700 units IVP TTS [facility] Stop: 02/17/17 10:01 Last Admin: 02/12/17 13:01 Dose: 3,700 units Hydralazine HCl (Apresoline) 50 mg PO BID [facility] Last Admin: 02/13/17 18:52 Dose: Not Given Insulin Aspart (Novolog) 0 unit SC ACHS [facility] PRN Reason: Protocol Last Admin: 02/13/17 22:38 Dose: Not Given Insulin Glargine (Lantus) 30 unit SC Q12H [facility] Last Admin: 02/13/17 18:53 Dose: Not Given Latanoprost (Xalatan Opht) 1 ml OU HS [facility] Last Admin: 02/13/17 22:44 Dose: Not Given Losartan Potassium (Cozaar) 100 mg PO DAILY [facility] Last Admin: 02/13/17 10:06 Dose: Not Given Morphine Sulfate (Morphine) 2 mg IVP Q4 PRN PRN Reason: pain Last Admin: 02/10/17 19:50 Dose: 2 mg Multivitamins (Hexavitamin) 1 tab PO DAILY [facility] Last Admin: 02/13/17 10:07 Dose: Not Given Ondansetron HCl (Zofran Inj) 4 mg IVP ACTID [facility] Last Admin: 02/13/17 18:53 Dose: Not Given Pantoprazole Sodium (Protonix Ec Tab) 40 mg PO DAILY [facility] Last Admin: 02/13/17 09:54 Dose: Not Given Rosuvastatin Calcium (Crestor) 20 mg PO HS [facility] Sevelamer Carbonate (Renvela) 800 mg PO TIDCC [facility] Last Admin: 02/13/17 18:53 Dose: Not Given Vancomycin HCl (Vancocin (Oral Or Rectal Use)) 125 mg PO QID [facility] Last Admin: 02/13/17 22:44 Dose: Not Given - Labs Labs: 02/13/17 08:29 02/13/17 08:29 PT 12.5 SECONDS (9.7-12.2) H 02/10/17 02:22 INR 1.1 02/10/17 02:22 APTT 31 SECONDS (21-34) 02/10/17 02:22
[2017-02-14] MEDS: (Lantus) Insulin Glargine, Recombinant SC SCH ×2 (06:58→18:20)
[2017-02-14] MEDS: (Novolog) Insulin Aspart, Recombinant 100 u/ml 10 ml vial SC SCH ×3 (07:29→18:20)
--- NOTE | 2017-02-14 09:35 | CARD ---
APPROVED REPORT EKG Measurement Heart [id number] <Conclusion> Normal sinus rhythm Possible Left atrial enlargement Nonspecific T wave abnormality Abnormal ECG
[2017-02-14] MEDS: Multiple Vitamins Tab PO SCH (10:52)
[2017-02-14] MEDS: Pantoprazole 40 mg EC Tab PO SCH (10:52)
[2017-02-14] MEDS: Collagenase 250 Units/gm Ointment(30 gm) TOP SCH (10:54)
[2017-02-14] MEDS: Vancomycin 125 MG/5 ML SOLN (ORAL/RECTAL) PO SCH ×4 (10:58→21:23)
[2017-02-14] MEDS: Brimonidine 0.2% Opth Sol (5ml) OU SCH ×3 (10:59→18:21)
--- NOTE | 2017-02-14 14:02 | CP.PCM.PN ---
Subjective - Date & Time of Evaluation Date of Evaluation: 02/14/17 Time of Evaluation: 08:00 - Subjective Subjective: Medicine Progress Note- Dr. Myrick's Service: Patient seen and examined at bedside this AM. Patient reports feeling well this AM. She is not nauseous or vomiting. She was able to tolerate her breakfast this morning. Patient is due for HD this AM. No acute events overnight. Objective - Vital Signs/Intake and Output Vital Signs (last 24 hours): Temp Pulse Resp BP Pulse Ox 97 F L 79 20 205/65 H 95 02/14/17 07:43 02/14/17 07:43 02/14/17 07:43 02/14/17 07:43 02/14/17 07:43 Intake and Output: 02/14/17 02/14/17 06:59 18:59 Intake Total 200 Output Total 50 Balance 150 - Medications Medications: Current Medications Acetaminophen (Tylenol 325mg Tab) 650 mg PO Q6 PRN PRN Reason: fever/pain Last Admin: 02/13/17 22:48 Dose: 650 mg Allopurinol (Zyloprim) 100 mg PO DAILY [facility] Last Admin: 02/14/17 10:52 Dose: 100 mg Brimonidine Tartrate (Alphagan 0.2% Opht) 1 ml OU TID [facility] Last Admin: 02/14/17 10:59 Dose: 1 drop Bumetanide (Bumex) 1 mg PO MWF [facility] Last Admin: 02/13/17 09:51 Dose: 1 mg Collagenase (Santyl) 0 gm TOP DAILY [facility] Last Admin: 02/14/17 10:54 Dose: 1 applic Ergocalciferol (Drisdol 50,000 Intl Units Cap) 1 cap PO QWK [facility] Last Admin: 02/10/17 10:00 Dose: Not Given Escitalopram Oxalate (Lexapro) 10 mg PO DAILY [facility] Last Admin: 02/14/17 10:52 Dose: 10 mg Ferrous Sulfate (Feosol) 325 mg PO DAILY [facility] Last Admin: 02/14/17 10:52 Dose: 325 mg Heparin Sodium (Porcine) (Heparin) 5,000 units SC Q8 [facility] Last Admin: 02/14/17 06:57 Dose: 5,000 units Heparin Sodium (Porcine) (Heparin) 3,700 units IVP TTS [facility] Stop: 02/17/17 10:01 Last Admin: 02/14/17 10:53 Dose: Not Given Hydralazine HCl (Apresoline) 50 mg PO BID [facility] Last Admin: 02/14/17 10:46 Dose: Not Given Insulin Aspart (Novolog) 0 unit SC ACHS [facility] PRN Reason: Protocol Last Admin: 02/14/17 12:45 Dose: 3 unit Insulin Glargine (Lantus) 30 unit SC Q12H [facility] Last Admin: 02/14/17 06:58 Dose: 30 u Latanoprost (Xalatan Opht) 1 ml OU HS [facility] Last Admin: 02/13/17 22:44 Dose: Not Given Losartan Potassium (Cozaar) 100 mg PO DAILY [facility] Last Admin: 02/14/17 10:46 Dose: Not Given Morphine Sulfate (Morphine) 2 mg IVP Q4 PRN PRN Reason: pain Last Admin: 02/10/17 19:50 Dose: 2 mg Multivitamins (Hexavitamin) 1 tab PO DAILY [facility] Last Admin: 02/14/17 10:52 Dose: 1 tab Ondansetron HCl (Zofran Inj) 4 mg IVP ACTID [facility] Last Admin: 02/14/17 10:58 Dose: 4 mg Pantoprazole Sodium (Protonix Ec Tab) 40 mg PO DAILY [facility] Last Admin: 02/14/17 10:52 Dose: 40 mg Rosuvastatin Calcium (Crestor) 10 mg PO HS [facility] Sevelamer Carbonate (Renvela) 800 mg PO TIDCC [facility] Last Admin: 02/14/17 12:07 Dose: Not Given Vancomycin HCl (Vancocin (Oral Or Rectal Use)) 125 mg PO QID [facility] Last Admin: 02/14/17 10:58 Dose: 125 mg - Labs Labs: 02/13/17 08:29 02/13/17 08:29 PT 12.5 SECONDS (9.7-12.2) H 02/10/17 02:22 INR 1.1 02/10/17 02:22 APTT 31 SECONDS (21-34) 02/10/17 02:22 - Constitutional Appears: No Acute Distress - Head Exam Head Exam: NORMAL INSPECTION, NORMOCEPHALIC - Eye Exam Eye Exam: EOMI, Normal appearance - ENT Exam ENT Exam: Mucous Membranes Moist - Neck Exam Neck Exam: Full ROM, Normal Inspection - Respiratory Exam Respiratory Exam: Clear to Ausculation Bilateral, NORMAL BREATHING PATTERN - Cardiovascular Exam Cardiovascular Exam: REGULAR RHYTHM, +S1, +S2 - GI/Abdominal Exam GI & Abdominal Exam: Soft. absent: Distended, Tenderness - Extremities Exam Extremities Exam: Full ROM, Normal Inspection - Back Exam Back Exam: NORMAL INSPECTION - Neurological Exam Neurological Exam: Alert, Awake, Oriented x3 - Psychiatric Exam Psychiatric exam: Normal Affect, Normal Mood - Skin Skin Exam: Dry, Normal Color, Warm Assessment and Plan - Assessment and Plan (Free Text) Assessment: Gastroparesis No vomiting this AM. GI consulted, Dr. Posada, help appreciated As per GI, likely gastroparesis secondary to underlying illness. * Patient was placed on short course of Reglan until 02/13 as per GI. * Zofran 4mg IVPB Q6H Advanced to renal diet on 02/13 Abdominal US 02/10:echogenic liver may be seen in setting of hepatic parenchymal disease or fatty infiltration. nonobstructing 3 mm right renal calculus Leukocytosis Resolved. Most recent WBC- 9.1 on 02/13. Afebrile overnight. WBC 14.5 with left shift, Bands 5 (02/10) CXR 02/10/17 - Prominent confluent consolidation seen within the left mid to lower lung zone with associated moderate to large left pleural effusion. Moderate venous congestion with patchy right basilar airspace opacity. Right central venous catheter tip extending into the right atrium. No obvious change from previous study on 12/20/16. * Flagyl 500mg IVPB Q8H started 02/10/17 and stopped on 02/12 * Vanco 125mg po QID MRSA: negative f/u C. diff study (possible due to recent abx use) ESRD Nephro consult - Dr. Ambrose, help appreciated Dialysis TTS - missed Thursday HD due to vomiting. Restarted patient's home medications: * Renvela 800mg PO TIDCC Non-Healing Left Heel Ulcer Podiatry consult - Dr. Stevens Restarted patient's home medications: Santyl topical Low ext arterial duplex (02/04/17): R- occlusion R post tib artery, 50-75% stenosis right mid popliteal & proximal anterior tib arteries L- occlusion of left post tib artery, >75% stenosis left proximal ant tibial artery, 50-75% stenosis left distal SFA & proximal popliteal a. As per podiatry team: Left heel cleansed with sterile normal saline, santyl and DSD applied on 02/14. Patient to wear offloading boots Stable as per podiatry CAD NSTEMI last December 2016 admission. Cardiac cath done by Dr. Law in Dec 2016 showed occluded RCA (small vessel) . Patient started on medications recommended by cardio last admission: * Aspirin 81mg PO daily * Plavix 75mg PO daily * Crestor 10mg PO HS HTN Elevated this AM. Patient to have HD today 02/14. Restarted patient's home medications: * Cozaar 100mg PO daily * Hydralazine 25mg PO BID CHF Pro BNP 02/10/17 - 92136 (on 12/20 = [id number]) ECHO 10/23/16 - there is a small to moderate circumferential pericardial effusion. No evidence of tamponade. The left ventricular systolic function is normal. Elevated left atrial pressure by Tissue Doppler. The right centricular systolic function is normal. There is a trace aortic regurgiation. Mild mitral regurgitation. There is mild to moderate tricuspid regurgiation. Mild pulmonary hypertension (please see full report) CXR 02/10/17 - Prominent confluent consolidation seen within the left mid to lower lung zone with associated moderate to large left pleural effusion. Moderate venous congestion with patchy right basilar airspace opacity. Right central venous catheter tip extending into the right atrium. No obvious change from previous study on 12/20/16. Restarted patient's home medications: * Cozaar 100mg PO daily * Hydralazine 25mg PO BID * Bumetanide 1mg PO BID MWF Anemia of Chronic Disease H/H 9.6/30.2 Likely secondary to ESRD Dr. Ambrose following. As per nephro- EPO on hold. Diabetes insulin sliding scale for now. Lantus 30 u BID started on 02/13 (increased from 20 u bid) Accuchecks Diet changed to Moderate consistent carbs (Renal). Glaucoma Restarted patient's home medications: * Latanoprost 0.005% 1 drop per eye HS * Brimonidine 0.2% 1 drop per eye TID Depression Restarted patient's home medications: * Lexapro 10mg PO daily Prophylaxis Heparin 5000u sc q8h Protonix 40mg IVP daily Restarted home medications: Ergocalciferol 1 cap PO QWK Multivitamin 1 tab daily Case discussed with Dr. Myrick
[2017-02-14] MEDS ORDERED: MethylPREDNISolone 40 mg Vial IVP ONE ×2 (18:48→22:00)
[2017-02-14] MEDS ORDERED: Collagenase 250 Units/gm Ointment(30 gm) TOP SCH (18:49)
--- NOTE | 2017-02-14 20:57 | CP.PCM.PN ---
Subjective - Date & Time of Evaluation Date of Evaluation: 02/14/17 Time of Evaluation: 14:00 - Subjective Subjective: 71 yo diabetic female seen at bedside sitting comfortably in bed. She appears to be lethargic this morning but able to answer yes/no to questions. Her was seen visiting. Dressing is clean, dry, and intact. Patient was seen not wearing offloading boots at the time of the visit. Patient reports some pain to the foot. Reports having diarrhea. Denies n/v/sob/cp/f or chills. Objective - Vital Signs/Intake and Output Vital Signs (last 24 hours): Temp Pulse Resp BP Pulse Ox 98.9 F 80 18 148/62 98 02/14/17 18:00 02/14/17 18:00 02/14/17 18:00 02/14/17 18:00 02/14/17 18:00 Intake and Output: 02/14/17 02/15/17 18:59 06:59 Intake Total 500 Output Total 50 Balance 450 - Medications Medications: Current Medications Acetaminophen (Tylenol 325mg Tab) 650 mg PO Q6 PRN PRN Reason: fever/pain Last Admin: 02/13/17 22:48 Dose: 650 mg Allopurinol (Zyloprim) 100 mg PO DAILY [facility] Last Admin: 02/14/17 10:52 Dose: 100 mg Aspirin (Aspirin Chewable) 81 mg PO DAILY [facility] Brimonidine Tartrate (Alphagan 0.2% Opht) 1 ml OU TID [facility] Last Admin: 02/14/17 18:21 Dose: 1 drop Bumetanide (Bumex) 1 mg PO MWF [facility] Last Admin: 02/13/17 09:51 Dose: 1 mg Clopidogrel Bisulfate (Plavix) 75 mg PO DAILY [facility] Collagenase (Santyl) 5 gm TOP DAILY [facility] Ergocalciferol (Drisdol 50,000 Intl Units Cap) 1 cap PO QWK [facility] Last Admin: 02/10/17 10:00 Dose: Not Given Escitalopram Oxalate (Lexapro) 10 mg PO DAILY [facility] Last Admin: 02/14/17 10:52 Dose: 10 mg Famotidine (Pepcid) 20 mg PO DAILY [facility] Ferrous Sulfate (Feosol) 325 mg PO DAILY [facility] Last Admin: 02/14/17 10:52 Dose: 325 mg Heparin Sodium (Porcine) (Heparin) 5,000 units SC Q8 [facility] Last Admin: 02/14/17 14:03 Dose: Not Given Heparin Sodium (Porcine) (Heparin) 3,700 units IVP TTS [facility] Stop: 02/17/17 10:01 Last Admin: 02/14/17 10:53 Dose: Not Given Hydralazine HCl (Apresoline) 50 mg PO BID [facility] Last Admin: 02/14/17 18:20 Dose: 50 mg Insulin Aspart (Novolog) 0 unit SC ACHS [facility] PRN Reason: Protocol Last Admin: 02/14/17 18:20 Dose: 2 unit Insulin Glargine (Lantus) 30 unit SC Q12H [facility] Last Admin: 02/14/17 18:20 Dose: 30 u Latanoprost (Xalatan Opht) 1 ml OU HS [facility] Last Admin: 02/13/17 22:44 Dose: Not Given Losartan Potassium (Cozaar) 100 mg PO DAILY [facility] Last Admin: 02/14/17 10:46 Dose: Not Given Morphine Sulfate (Morphine) 2 mg IVP Q4 PRN PRN Reason: pain Last Admin: 02/10/17 19:50 Dose: 2 mg Multivitamins (Hexavitamin) 1 tab PO DAILY [facility] Last Admin: 02/14/17 10:52 Dose: 1 tab Ondansetron HCl (Zofran Inj) 4 mg IVP ACTID [facility] Last Admin: 02/14/17 18:13 Dose: Not Given Rosuvastatin Calcium (Crestor) 10 mg PO HS [facility] Sevelamer Carbonate (Renvela) 800 mg PO TIDCC [facility] Last Admin: 02/14/17 18:25 Dose: Not Given Vancomycin HCl (Vancocin (Oral Or Rectal Use)) 125 mg PO QID [facility] Last Admin: 02/14/17 18:27 Dose: 125 mg - Labs Labs: 02/13/17 08:29 02/13/17 08:29 PT 12.5 SECONDS (9.7-12.2) H 02/10/17 02:22 INR 1.1 02/10/17 02:22 APTT 31 SECONDS (21-34) 02/10/17 02:22 - Constitutional Appears: Well, Non-toxic, No Acute Distress - Extremities Exam Additional comments: VASC- DP pulse is palpable, PT pulse non-palp, skin temp runs warm to cool ( proximal to distal), cap refill <3 sec to all digits, no pedal edema appreciated DERM-there is a full thickness ulceration noted to plantar lateral aspect of calcaneus with dusky coloration of skin noted laterally, there is no drainage, no purulence, no fluctuance, no erythema, no signs infection NEURO- gross pedal sensation is intact ORTHO- tenderness noted on palpation of posterior-lateral aspect of calcaneus, tenderness noted on palpation of posterior lateral aspect of left leg (no pain on deep compression of calf) - Neurological Exam Neurological Exam: Awake, Oriented x3 - Psychiatric Exam Psychiatric exam: Normal Affect, Normal Mood Assessment and Plan - Assessment and Plan (Free Text) Assessment: 71 yo female patient with chronic ulceration to left heel 2/2 PVD Plan: Pt S&E at bedside Plan discussed with attending Dr. Stevens in detail Chart, labs and vitals reviewed: afebrile, leukocytosis resolved Low ext arterial duplex (02/04/17): R- occlusion R post tib artery, 50-75% stenosis right mid popliteal & proximal anterior tib arteries L- occlusion of left post tib artery, >75% stenosis left proximal ant tibial artery, 50-75% stenosis left distal SFA & proximal popliteal a. Left heel cleansed with sterile normal saline, santyl and DSD applied. Stable as per podiatry Recommend offloading boots to be worn at all times while in bed. Will follow
--- NOTE | 2017-02-14 21:44 | CP.PCM.PN ---
Subjective - Date & Time of Evaluation Date of Evaluation: 02/14/17 Time of Evaluation: 15:00 - Subjective Subjective: SEEN ON RENAL F/U RECIEVED HER HD .. TOLERATED WELL FEELS IMPROVED ALL ABOVE NOTES READ Objective - Vital Signs/Intake and Output Vital Signs (last 24 hours): Temp Pulse Resp BP Pulse Ox 98.9 F 80 18 148/62 98 02/14/17 18:00 02/14/17 18:00 02/14/17 18:00 02/14/17 18:00 02/14/17 18:00 Intake and Output: 02/14/17 02/15/17 18:59 06:59 Intake Total 500 Output Total 50 Balance 450 - Medications Medications: Current Medications Acetaminophen (Tylenol 325mg Tab) 650 mg PO Q6 PRN PRN Reason: fever/pain Last Admin: 02/14/17 21:16 Dose: 650 mg Allopurinol (Zyloprim) 100 mg PO DAILY [facility] Last Admin: 02/14/17 10:52 Dose: 100 mg Aspirin (Aspirin Chewable) 81 mg PO DAILY [facility] Brimonidine Tartrate (Alphagan 0.2% Opht) 1 ml OU TID [facility] Last Admin: 02/14/17 18:21 Dose: 1 drop Bumetanide (Bumex) 1 mg PO MWF [facility] Last Admin: 02/13/17 09:51 Dose: 1 mg Clopidogrel Bisulfate (Plavix) 75 mg PO DAILY [facility] Collagenase (Santyl) 5 gm TOP DAILY [facility] Ergocalciferol (Drisdol 50,000 Intl Units Cap) 1 cap PO QWK [facility] Last Admin: 02/10/17 10:00 Dose: Not Given Escitalopram Oxalate (Lexapro) 10 mg PO DAILY [facility] Last Admin: 02/14/17 10:52 Dose: 10 mg Famotidine (Pepcid) 20 mg PO DAILY [facility] Ferrous Sulfate (Feosol) 325 mg PO DAILY [facility] Last Admin: 02/14/17 10:52 Dose: 325 mg Heparin Sodium (Porcine) (Heparin) 5,000 units SC Q8 [facility] Last Admin: 02/14/17 21:16 Dose: 5,000 units Heparin Sodium (Porcine) (Heparin) 3,700 units IVP TTS [facility] Stop: 02/17/17 10:01 Last Admin: 02/14/17 10:53 Dose: Not Given Hydralazine HCl (Apresoline) 50 mg PO BID [facility] Last Admin: 02/14/17 18:20 Dose: 50 mg Insulin Aspart (Novolog) 0 unit SC ACHS [facility] PRN Reason: Protocol Last Admin: 02/14/17 18:20 Dose: 2 unit Insulin Glargine (Lantus) 30 unit SC Q12H [facility] Last Admin: 02/14/17 18:20 Dose: 30 u Latanoprost (Xalatan Opht) 1 ml OU HS [facility] Last Admin: 02/13/17 22:44 Dose: Not Given Losartan Potassium (Cozaar) 100 mg PO DAILY [facility] Last Admin: 02/14/17 10:46 Dose: Not Given Methylprednisolone (Solu-Medrol) 40 mg IVP ONCE ONE Stop: 02/14/17 22:01 Last Admin: 02/14/17 21:17 Dose: 40 mg Morphine Sulfate (Morphine) 2 mg IVP Q4 PRN PRN Reason: pain Last Admin: 02/10/17 19:50 Dose: 2 mg Multivitamins (Hexavitamin) 1 tab PO DAILY [facility] Last Admin: 02/14/17 10:52 Dose: 1 tab Ondansetron HCl (Zofran Inj) 4 mg IVP ACTID [facility] Last Admin: 02/14/17 18:13 Dose: Not Given Rosuvastatin Calcium (Crestor) 10 mg PO HS [facility] Last Admin: 02/14/17 21:16 Dose: 10 mg Sevelamer Carbonate (Renvela) 800 mg PO TIDCC [facility] Last Admin: 02/14/17 18:25 Dose: Not Given Vancomycin HCl (Vancocin (Oral Or Rectal Use)) 125 mg PO QID [facility] Last Admin: 02/14/17 21:23 Dose: Not Given - Labs Labs: 02/13/17 08:29 02/13/17 08:29 PT 12.5 SECONDS (9.7-12.2) H 02/10/17 02:22 INR 1.1 02/10/17 02:22 APTT 31 SECONDS (21-34) 02/10/17 02:22 Assessment and Plan - Assessment and Plan (Free Text) Assessment: ESRD ON HD T T S .. TO BE C/O ANEMIA OF CKD .. ON EPO .. D/C PO IRON .. WE CAN ALWAYS GIVE IV IF NEDED C/O CURRENT CARE C/O PRESENT MEDS EXCEPT PO IRON
[2017-02-15 00:35] VITALS: RESP 20
[2017-02-15] MEDS: (Novolog) Insulin Aspart, Recombinant 100 u/ml 10 ml vial SC SCH ×2 (08:08→12:55)
[2017-02-15] MEDS: (Lantus) Insulin Glargine, Recombinant SC SCH (08:08)
[2017-02-15 09:23] VITALS: BP 184/72; TEMP 98; O2SAT 95
[2017-02-15] MEDS: Brimonidine 0.2% Opth Sol (5ml) OU SCH ×2 (11:07→13:20)
[2017-02-15] MEDS: Multiple Vitamins Tab PO SCH (12:01)
[2017-02-15] MEDS: Vancomycin 125 MG/5 ML SOLN (ORAL/RECTAL) PO SCH ×2 (12:02→13:21)
--- NOTE | 2017-02-15 13:30 | CP.PCM.DIS ---
Provider - Provider Date of Admission: 02/10/17 04:03 Attending physician: Benson Myrick Jr, MD Primary care physician: Dr. Myrick Consults: Dr. Posada (GI) Dr. Stevens (podiatry) Dr. Ambrose (nephro) Time Spent in preparation of Discharge (in minutes): 45 Diagnosis - Discharge Diagnosis (1) Gastroparesis Status: Acute Comment: Patient tolerating diet and discharged on Zofran PRN. (2) End stage renal disease on dialysis Status: Acute (3) Foot ulcer Status: Acute Hospital Course - Lab Results Lab Results: Micro Results 02/11/17 08:00 Nose MRSA Culture - Final MRSA NOT DETECTED 02/10/17 06:54 Naris MRSA Culture (Admit) - Final MRSA NOT DETECTED Most Recent Lab Values WBC 9.1 K/uL (4.8-10.8) 02/13/17 08:29 RBC 3.41 Mil/uL (3.80-5.20) L 02/13/17 08:29 Hgb 9.6 g/dL (11.0-16.0) L 02/13/17 08:29 Hct 30.2 % (34.0-47.0) L 02/13/17 08:29 MCV 88.6 fL (81.0-99.0) D 02/13/17 08:29 MCH 28.1 pg (27.0-31.0) 02/13/17 08:29 MCHC 31.7 g/dL (33.0-37.0) L 02/13/17 08:29 RDW 17.2 % (11.5-14.5) H 02/13/17 08:29 Plt Count 350 K/uL (130-400) 02/13/17 08:29 MPV 8.4 fL (7.2-11.7) 02/13/17 08:29 Neut % (Auto) 71.9 % (50.0-75.0) 02/13/17 08:29 Lymph % (Auto) 12.1 % (20.0-40.0) L 02/13/17 08:29 [place] % (Auto) 15.0 % (0.0-10.0) H 02/13/17 08:29 Eos % (Auto) 0.7 % (0.0-4.0) 02/13/17 08:29 Baso % (Auto) 0.3 % (0.0-2.0) 02/13/17 08:29 Neut # 6.6 K/uL (1.8-7.0) 02/13/17 08:29 Lymph # 1.1 K/uL (1.0-4.3) 02/13/17 08:29 [place] # 1.4 K/uL (0.0-0.8) H 02/13/17 08:29 Eos # 0.1 K/uL (0.0-0.7) 02/13/17 08:29 Baso # 0.0 K/uL (0.0-0.2) 02/13/17 08:29 Neutrophils % (Manual) 77 % (50-75) H 02/10/17 02:22 Band Neutrophils % 5 % (0-2) H 02/10/17 02:22 Lymphocytes % (Manual) 7 % (20-40) L 02/10/17 02:22 Monocytes % (Manual) 10 % (0-10) 02/10/17 02:22 Eosinophils % (Manual) 1 % (0-4) 02/10/17 02:22 Platelet Estimate Slightly increased (NORMAL) H 02/10/17 02:22 Poikilocytosis (manual Slight 02/10/17 02:22 Anisocytosis (manual) Slight 02/10/17 02:22 PT 12.5 SECONDS (9.7-12.2) H 02/10/17 02:22 INR 1.1 02/10/17 02:22 APTT 31 SECONDS (21-34) 02/10/17 02:22 Sodium 136 mmol/L (132-148) 02/13/17 08:29 Potassium 4.1 mmol/L (3.6-5.2) 02/13/17 08:29 Chloride 95 mmol/L (98-107) L 02/13/17 08:29 Carbon Dioxide 25 mmol/L (22-30) 02/13/17 08:29 Anion Gap 20 (10-20) 02/13/17 08:29 BUN 36 mg/dL (7-17) H 02/13/17 08:29 Creatinine 3.6 MG/DL (0.7-1.2) H 02/13/17 08:29 Est GFR ( Amer) 15 02/13/17 08:29 Est GFR (Non-Af Amer) 12 02/13/17 08:29 POC Glucose (mg/dL) 495 mg/dL (65-110) H* 02/15/17 12:18 Random Glucose 279 mg/dL (65-105) H 02/13/17 08:29 Calcium 8.6 mg/dl (8.6-10.4) 02/13/17 08:29 Phosphorus 6.3 mg/dL (2.5-4.5) H 02/13/17 08:29 Magnesium 1.9 mg/dL (1.6-2.3) 02/13/17 08:29 Total Bilirubin 0.6 mg/dL (0.2-1.3) 02/13/17 08:29 AST 15 U/L (14-36) 02/13/17 08:29 ALT 29 U/L (9-52) 02/13/17 08:29 Alkaline Phosphatase 158 U/L (38-126) H 02/13/17 08:29 NT-Pro-B Natriuret Pep 75705 pg/mL (0-900) H 02/10/17 02:22 Total Protein 6.2 g/dL (6.3-8.3) L 02/13/17 08:29 Albumin 3.3 g/dL (3.5-5.0) L 02/13/17 08:29 Globulin 2.9 gm/dL (2.2-3.9) 02/13/17 08:29 Albumin/Globulin Ratio 1.1 (1.0-2.1) 02/13/17 08:29 Lipase 10 U/L (23-300) L 02/10/17 02:22 - Hospital Course Hospital Course: Patient is a 71F with PMH of ESRD (dialysis TTS), CHF, HTN, DM2, depression, anemia of chronic disease, chronic low back pain, glaucoma and non-healing left heel ulcer (since October 08). The patients gave the majority of the history due to language barrier. Patients reports that the patient has been vomiting since night. She has not been able to tolerate anything orally since she began vomiting. She is now experiencing epigastric pain that she believes is just soreness as a result of the vomiting. The patient was dry heaving during the interview. The abdominal pain is a dull pain at rest but is extremely sharp when she begins to vomit. Patient denies any blood or coffee ground appearence in her vomit. Patient reports periodic episodes of watery diarrhea but it switches back and fourth between diarrhea and formed stool. The patient states that she is more in pain due to her heel than her abdomen. She reports that an ulcer developed in September of 2016. She has been following with Dr. Stevens (podiatry) but it has not healed. She is currently taking an antibiotic for the ulcer but the is unable to read his handwriting. She has been taking Tylenol at home for pain but it has not been helping. Patient reports some SOB and blurry vision but states this has been going on for a long period of time. She does not believe her breathing is any worse now than usual. Denies f/c, n/v, cp, numbness, tingling. Patient with intractable nausea and vomiting on admission. GI consulted, Dr. Posada who saw patient. As per GI, likely gastroparesis secondary to underlying illness. Patient was placed on short course of Reglan until 02/13 as per GI. Patient was then started on Zofran 4mg IVPB Q6H. Diet was advanced to renal diet on 02/13 and patient was able to tolerate. Abdominal US 02/10:echogenic liver may be seen in setting of hepatic parenchymal disease or fatty infiltration. nonobstructing 3 mm right renal calculus. Patient was also found to have pneumonia and pleural effusion as per CXR . CXR 02/10/17 - Prominent confluent consolidation seen within the left mid to lower lung zone with associated moderate to large left pleural effusion. Moderate venous congestion with patchy right basilar airspace opacity. Right central venous catheter tip extending into the right atrium. No obvious change from previous study on 12/20/16. Patient was started on Flagyl 500mg IVPB Q8H on 02/10/17 to 02/12/17. Patient was also started on Vanco 125mg po QID. While in patient, she was evaluated by podiatry team for non healight left heel ulcer. Low ext arterial duplex (02/04/17) R- occlusion R post tib artery, 50-75% stenosis right mid popliteal & proximal anterior tib arteries. L- occlusion of left post tib artery, >75% stenosis left proximal ant tibial artery, 50-75% stenosis left distal SFA & proximal popliteal ken Henson will be referred to vascular surgeon (Dr. Chowdhury) as outpatient as per Dr. Myrick. Patient had HD per regular schedule and was evaluated by her survey technologist Dr. Ambrose, while in inpatient setting. She was discharged as per Dr. Myrick in stable condition. She was able to tolerate PO intake prior to discharge.. Patient was sent home with 5 more days of vanco and Zofran PRN. She was taken off hydralazine and started on Norvasc as per Dr. Myrick her PMD. Patient's all other home medications were reviewed prior to discharge. This is only a summary of the hospital course. Please see chart for full details. Discharge Exam - Head Exam Head Exam: NORMAL INSPECTION, NORMOCEPHALIC - Eye Exam Eye Exam: EOMI, PERRL Pupil Exam: NORMAL ACCOMODATION - ENT Exam ENT Exam: Mucous Membranes Moist - Neck Exam Neck exam: Full Rom - Respiratory Exam Respiratory Exam: Clear to PA & Lateral, NORMAL BREATHING PATTERN - Cardiovascular Exam Cardiovascular Exam: REGULAR RHYTHM - GI/Abdominal Exam GI & Abdominal Exam: Normal Bowel Sounds, Soft. absent: Tenderness - Extremities Exam Extremities exam: full ROM - Neurological Exam Neurological exam: Alert, Oriented x3 - Psychiatric Exam Psychiatric exam: Normal Affect, Normal Mood - Skin Skin Exam: Dry, Pallor, Warm Discharge Plan - Discharge Medications Prescriptions: amLODIPine [Norvasc] 5 mg PO DAILY #30 tab Bumetanide [Bumex] 1 mg PO MWF #12 tab Furosemide 40 mg PO DAILY #30 tablet Insulin Glargine, Recombina [Lantus] 30 unit SC Q12H #100 unit Ondansetron HCl [Zofran] 4 mg PO ACTID 5 Days #75 ml Vancomycin HCl 125 mg PO QID 5 Days #20 capsule - Follow Up Plan Condition: FAIR Disposition: HOME/ ROUTINE Instructions: Bumetanide (By mouth), Amlodipine (By mouth), Ondansetron (By mouth), Vancomycin (By mouth), Heart Failure (DC), Dialysis Diet (DC), Acute Nausea and Vomiting (DC), End Stage Kidney Disease (DC) Additional Instructions: Please discharge patient to home as per Dr. Myrick. Please take the following new medications as prescribed: Antibiotic-Vanco 125 mg by mouth 4 times a day for 5 days Zofran 4mg by mouth three times a day before meals as needed for nausea Norvasc 5 mg by mouth daily Bumex 1 mg by mouth MWF Lantus 30 units SC every 12 hours (DO NOT TAKE 20 units anymore) You have been given a refill of your Lasix 40 mg by mouth daily STOP Hydralazine medication STOP the antibiotic you were taking at home STOP Pepcid medication RESUME ALL OTHER HOME MEDICATIONS PRESCRIBED. Follow up with Dr. Myrick Follow up with Dr. Stevens the machine engraver Return to the emergency room if symptoms return. Referrals: Benson Myrick Jr., MD [Medical Doctor] - Jordan Stevens DPM [Staff Provider] -
[2017-02-16 01:08] VITALS: PULSE 98
== END 2017-02-15 14:50 | disposition home or self-care (01) | DRG 73 ==
LOC: C.ER 01:43 → C.9I 04:03 → C.5S 02-12 01:02
PROVIDERS: ADMIT Internal Medicine; ATTEND Internal Medicine
PROC: 5A1D00Z (ICD-10-PCS; principal; 2017-02-10)
DX: E11.43 Type 2 diabetes mellitus with diabetic autonomic (poly)neuropathy (principal); N18.6 End stage renal disease; J18.9 Pneumonia, unspecified organism; I13.2 Hypertensive heart and chronic kidney disease with heart failure and with stage 5 chronic kidney disease, or end stage renal disease; I31.3 Pericardial effusion (noninflammatory); E11.22 Type 2 diabetes mellitus with diabetic chronic kidney disease; E11.621 Type 2 diabetes mellitus with foot ulcer; L97.429 Non-pressure chronic ulcer of left heel and midfoot with unspecified severity; K31.84 Gastroparesis; I50.9 Heart failure, unspecified; F32.9 Major depressive disorder, single episode, unspecified; E78.00 Pure hypercholesterolemia, unspecified; F41.9 Anxiety disorder, unspecified; Z79.4 Long term (current) use of insulin; D63.1 Anemia in chronic kidney disease; I34.0 Nonrheumatic mitral (valve) insufficiency; I27.2 Other secondary pulmonary hypertension; H40.9 Unspecified glaucoma; I70.244 Atherosclerosis of native arteries of left leg with ulceration of heel and midfoot; K76.0 Fatty (change of) liver, not elsewhere classified; I25.10 Atherosclerotic heart disease of native coronary artery without angina pectoris; Z99.2 Dependence on renal dialysis

== ENCOUNTER 2017-02-18 04:53 | Inpatient (IN) | payer MEDICARE ==
[2017-02-18 04:55] VITALS: BMI 32.9
--- NOTE | 2017-02-18 04:57 | C.PDOC ---
History Of Present Illness pt is Thursday HD. Pt had hd yesterday. went to sleep around 7 pm . noted the patient with heavy respirations around 4:40 AM Blood sugar was 59. and unresponsive. Medics gave 1 amp of D50 with accucheck about 250. Pt responds to commands, but eyes deviated to the left. History obtained from the medics and Time Seen by Provider: 02/18/17 04:55 History Per: EMS History/Exam Limitations: Clinical Condition Onset/Duration Of Symptoms: Hrs Onset Of Symptoms: Other (02/17/17 at 7 pm) Current Symptoms Are (Timing): Worse Usual Baseline: Alert Oriented Exacerbating Factor(s): Unknown Use Of Anticoag/Antiplatelets: No Severity: Severe Pain Scale Rating Of: 10 Recent travel outside of the [place]: No Additional History Per: EMS Associated Symptoms: denies: Fever, Chills Past Medical History Reviewed: Historical Data, Nursing Documentation, Vital Signs Vital Signs: Last Vital Signs Temp 97.8 F 02/18/17 06:02 Pulse 77 02/18/17 06:02 Resp 21 02/18/17 06:02 BP 193/70 H 02/18/17 06:02 Pulse Ox 98 02/18/17 06:04 - Medical History PMH: Anemia, Anxiety, CHF, Depression, Diabetes, HTN, Hypercholesterolemia, End Stage Renal Disease, Chronic Kidney Disease Denies: HIV Surgical History: Appendectomy, Endoscopy (OCTOBER 2013) - [facility] Procedures ANESTH INJECT-SPIN CANAL (01/08/15) ANGIOPLASTY OF OTHER NON-CORONARY VESSEL(S) (03/01/14) ATHERECTOMY OF OTHER NON-CORONARY VESSEL(S) (03/01/14) BYPASS L BASILIC VEIN TO UP VEIN W SYNTH SUB, OPEN (10/21/16) DILATION OF LEFT POPLITEAL ARTERY, PERCUTANEOUS APPROACH (10/21/16) DRAINAGE OF LEFT LOWER ARM SKIN, EXTERNAL APPROACH (11/28/16) DRAINAGE OF LEFT PLEURAL CAVITY, PERCUTANEOUS APPROACH (10/10/15) EXCISION OF LEFT LOWER ARM SKIN, EXTERNAL APPROACH (11/28/16) EXERCISE TREATMENT OF MUSCULOSK WHOLE USING ASSIST EQUIPMENT (10/17/15) GAIT TRAINING/AMBULAT TREATMENT USING ASSIST EQUIPMENT (10/17/15) HOME MANAGEMENT TREATMENT USING ASSIST EQUIPMENT (10/17/15) IMMOBILIZ/WOUND ATTN NEC (06/24/13) INJECT STEROID (01/08/15) INJECT/INFUSE NEC (01/08/14) INSEJ OF DRUG-ELUTING STENT(S) OF OTH PERIPHERAL VESSEL(S) (03/01/14) INSERT INFUSION DEV IN R INT JUGULAR VEIN, PERC (10/21/16) INSERTION OF INFUSION DEV INTO SUP VENA CAVA, PERC APPROACH (11/28/16) INSERTION OF TWO VASCULAR STENTS (03/01/14) INTRODUCE OF OTH ANTI-INFECT INTO PERIPH VEIN, PERC APPROACH (10/17/15) MEASURE OF CARDIAC SAMPL & PRESSURE, L HEART, PERC APPROACH (12/20/16) PERFORMANCE OF URINARY FILTRATION, MULTIPLE (12/20/16) PERFORMANCE OF URINARY FILTRATION, SINGLE (02/10/17) PLAIN RADIOGRAPHY OF LEFT HEART USING LOW OSMOLAR CONTRAST (12/20/16) PLAIN RADIOGRAPHY OF MULT COR ART USING L OSM CONTRAST (12/20/16) PROCEDURE ON SINGLE VESSEL (03/01/14) SPINAL CANAL INJECT NEC (01/08/15) TRANSFUSE NONAUT RED BLOOD CELLS IN PERIPH VEIN, PERC (11/28/16) VACCINATION NEC (11/29/14) Family History: States: Unknown Family Hx - Social History Hx Alcohol Use: No Hx Substance Use: No - Immunization History Hx Tetanus Toxoid Vaccination: No Hx Influenza Vaccination: No Hx Pneumococcal Vaccination: No Review Of Systems Review Of Systems: ROS cannot be obtained secondary to pt's inabilty to answer questions. Physical Exam - Physical Exam Appears: In Acute Distress Skin: Pale Head: Normacephalic Eye(s): bilateral: Normal Inspection Oral Mucosa: Moist Neck: Trachea Midline, Supple Chest: Symmetrical, Other (HD cath r chest wall) Cardiovascular: Rhythm Regular Respiratory: No Rales, Rhonchi, No Wheezing Gastrointestinal/Abdominal: Soft, No Tenderness, No Distention Back: No Normal Inspection Extremity: No Tenderness, Other (left arm graft with good thrill and bruit) Extremity: Left: Painful To Bear Weight, Other (non healing ulcer heel) Neurological/Psych: Eyes Open With Command Gait: Unable To Assess ED Course And Treatment - Laboratory Results Result Diagrams: 02/18/17 05:30 02/18/17 05:30 ECG: Interpreted By Me, Viewed By Me ECG Rhythm: Sinus Rhythm (84), Nonspecific Changes O2 Sat by Pulse Oximetry: 98 Pulse Ox Interpretation: Normal - Radiology CXR: Interpreted by Me, Viewed By Me CXR Interpretation: Yes: Cardiomegaly, Other (left efusion, mild) Progress Note: code stroke called. 5:35 am placed call to dr gordon - icu- will come and see the patient. 5:50 pt much more responsive after narcan. verbalizes severe pain. at bedside. Critical Care Time - Critical Care Note Total Time (in mins): 30 Documented critical care: time excludes all time spent performing seperately billable procedures. NIHSS Stroke Scale - Date/Time Evaluation Performed Date Performed: 02/18/17 Time Performed: 04:56 When Was NIHSS Performed: Baseline - How Severe is the Stoke Level of Consciousness: 1=Drowsy LOC to Questions: 2=Neither correct LOC to commands: 0=Obeys both correctly Best Gaze: 1=Partial gaze palsy Visual: 0=No visual loss Facial: 0=Normal Motor Arm - Left: 0=No drift Motor Arm - Right: 0=No drift Motor Leg - Left: 0=No drift Motor Leg - Right: 0=No drift Limb Ataxia: 0=Absent Sensory: 0=Normal Best Language: 1=Mild to moderate aphasia Dysarthia: 1=Mild to moderate slurring Extinction & Inattention (Neglect): 0=Normal, no object Score: 6 Severity Of Stroke: 5-15= Moderate Stroke Disposition Discussed With : Benson Myrick Jr. Comment: accepted the pt on his service and took over the care at 6:24 AM Doctor Will See Patient In The: ED Counseled Patient/Family Regarding: Studies Performed, Diagnosis - Disposition Disposition: HOSPITALIZED Disposition Time: 04:57 Condition: CRITICAL - POA Present On Arrival: Poor Glycemic Control, Pressure Ulcer - Clinical Impression Clinical Impression: Change in mental status, IDDM (insulin dependent diabetes mellitus), Heel ulcer , ESRD (end stage renal disease) on dialysis Decision To Admit - Pt Status Changed To: Hospital Disposition Of: Inpatient - Admit Certification Admit to Inpatient:: After my assessment, the patient will require hospitalization for at least two midnights. This is because of the severity of symptoms shown, intensity of services needed, and/or the medical risk in this patient being treated as an outpatient. - InPatient: Physician Admission Certification:: After my assessment, the patient will require hospitalization for at least two midnights. This is because of the severity of symptoms shown, intensity of services needed, and/or the medical risk in this patient being treated as an outpatient. - . Bed Request Type: Telemetry Admitting Physician: Benson Myrick Jr. Patient Diagnosis: Change in mental status, IDDM (insulin dependent diabetes mellitus), Heel ulcer , ESRD (end stage renal disease) on dialysis
--- NOTE | 2017-02-18 05:22 | CT ---
EXAM: CT Head Without Intravenous Contrast CLINICAL HISTORY: 71 years old, female; Pain; Headache and other: AMS; Additional info: Code stroke TECHNIQUE: Axial computed tomography images of the head/brain without intravenous contrast. All CT scans at this facility use one or more dose reduction techniques, viz.: automated exposure control; ma/kV adjustment per patient size (including targeted exams where dose is matched to indication; i.e. head); or iterative reconstruction technique. Coronal and sagittal reformatted images were created and reviewed. COMPARISON: No relevant prior studies available. FINDINGS: Limitations: Motion artifact - mild. Brain: Mild atrophy. No definite intracranial hemorrhage. No mass. Probable dilated perivascular spaces vs chronic lacunar infarcts about basal ganglia. No definite edema. Ventricles: No hydrocephalus. Bones/joints: No acute fracture. Soft tissues: Unremarkable. Vasculature: Mild atherosclerotic disease of intracranial arteries. Sinuses: Minimal mucosal thickening of maxillary sinuses. Mastoid air cells: No mastoid effusion. Orbits: Unremarkable as visualized. IMPRESSION: 1. No definite territorial infarction. Acute infarction may be CT occult within first 24 hours. If focal deficit persists, consider followup CT or MRI for further evaluation. 2. Incidental/non-acute findings are described above.
[2017-02-18 05:36] LABS: BASO # 0.1 K/uL (0.0-0.2); BASO % 0.2 % (0.0-2.0); EOS % 0.1 % (0.0-4.0); LYMPH # 1.3 K/uL (1.0-4.3); LYMPH % 3.9 % (20.0-40.0); MEAN CELL VOLUME 88.6 fL (81.0-99.0); MEAN CORPUSCULAR HEMOGLOBIN 27.3 pg (27.0-31.0); MEAN CORPUSCULAR HGB CONC 30.8 g/dL (33.0-37.0); MEAN PLATELET VOLUME 8.4 fL (7.2-11.7); MONO # 1.7 K/uL (0.0-0.8); MONO % 4.9 % (0.0-10.0); PLATELET COUNT 340 K/uL (130-400); RED CELL DISTRIBUTION WIDTH 17.4 % (11.5-14.5)
[2017-02-18] MEDS ORDERED: Naloxone 0.4 mg/ml Inj (Adult) ONE (05:36)
[2017-02-18 05:40] LABS: ABG ALLEN TEST POS; DRAW SITE RR
[2017-02-18 05:40] LABS: POTASSIUM 4.4 mmol/L (3.6-5.2)
[2017-02-18 05:41] LABS: INR 1.1
[2017-02-18 05:43] LABS: ALB/GLOB RATIO 1.1 (1.0-2.1); BILIRUBIN,TOTAL 0.6 mg/dL (0.2-1.3); CALCIUM 9.1 mg/dl (8.6-10.4); TOTAL PROTEIN 7.1 g/dL (6.3-8.3)
[2017-02-18] MEDS ORDERED: Naloxone 0.4 mg/ml Inj (Adult) IVP ONE (05:55)
[2017-02-18 05:58] LABS: EOSINOPHIL 1 % (0-4); NEUTROPHIL 84 % (50-75); TOTAL CELLS COUNTED 100
[2017-02-18 05:59] LABS: WHITE BLOOD COUNT 34.4 K/uL (4.8-10.8)
[2017-02-18] MEDS ORDERED: Vancomycin 1 GM 1 GM/250 ML BAG IVPB STA (06:19)
[2017-02-18] MEDS ORDERED: Clindamycin 600mg/50ml NS 600 MG/50 ML BAG IVPB ONE (06:31)
[2017-02-18] MEDS ORDERED: Vancomycin 1 GM 1 GM/250 ML BAG IVPB ONE (06:32)
--- NOTE | 2017-02-18 08:57 | RAD ---
PROCEDURE: CHEST RADIOGRAPH, 1 VIEW HISTORY: code stroke COMPARISON: 02/10/2017. FINDINGS: The right-sided central venous catheter terminates at the cavoatrial junction. LUNGS: The right lung is well inflated and clear. PLEURA: No pneumothorax. There is a small left pleural effusion. CARDIOVASCULAR: There is persistent moderate. Cardiomegaly Atherosclerotic aortic arch calcifications are present. . OSSEOUS STRUCTURES: No significant abnormalities. VISUALIZED UPPER ABDOMEN: Normal. OTHER FINDINGS: None. IMPRESSION: Persistent moderate cardiomegaly and small left pleural effusion.
[2017-02-18] MEDS ORDERED: Collagenase 250 Units/gm Ointment(30 gm) TOP SCH (10:00)
--- NOTE | 2017-02-18 12:13 | CP.PCM.HP ---
History of Present Illness - History of Present Illness History of Present Illness: PGY-1 H&P for Dr. Myrick CC: Altered Mental Status This is a 71 year old female with PMHx ESRD (dialysis TTS), CHF, HTN, DM2, PVD, depression, anemia of chronic disease, chronic low back pain, glaucoma who presents this morning with altered mental status. Patient's last known well time was yesterday 02/17/17 before 5PM. Per , patient normally gets very fatigued and does not behave like usual after dialysis. Patient's baseline is such where she normally speaks properly. The stated that he left the patient alone, but at around 4AM this morning, the stated that he noticed that the patient was foaming at the mouth and gasping for air. The states that he measured her blood glucose and found it at 47. The stated that he proceeded to call the ambulance and states that the patient was given D50 with new glucose reading of 258. ROS unable to ascertain because the patient is unresponsive to stimuli. PMHx: Per , ESRD (dialysis TTS), CHF, HTN, DM2, PVD, depression, anemia of chronic disease, chronic low back pain, glaucoma PSHx: Per , Appendectomy, AV fistula, lower extremity artherectomy Allergies: NKDA Family history: not contributory Social History: Lives with in [place]. Per , denies any smoking, denies ETOH or drug abuse PMD: Dr Myrick Present on Admission - Present on Admission Any Indicators Present on Admission: Yes History of Uncontrolled Diabetes: Yes Review of Systems - Review of Systems Systems not reviewed;Unavailable: Altered Mental Status Past Patient History - Infectious Disease Hx of Infectious Diseases: None - Tetanus Immunizations Tetanus Immunization: Unknown - Past Medical History & Family History Past Medical History?: Yes - Past Social History Smoking Status: Never Smoked - CARDIAC Hx Congestive Heart Failure: Yes Hx Hypercholesterolemia: Yes Hx Hypertension: Yes - PULMONARY Hx Respiratory Disorders: No - NEUROLOGICAL Hx Neurological Disorder: No - HEENT Hx HEENT Problems: Yes Hx Cataracts: Yes - RENAL Hx Chronic Kidney Disease: Yes - ENDOCRINE/METABOLIC Hx Endocrine Disorders: Yes Hx Diabetes Mellitus Type 2: Yes - HEMATOLOGICAL/ONCOLOGICAL Hx Anemia: Yes Hx Human Immunodeficiency Virus (HIV): No - INTEGUMENTARY Hx Dermatological Problems: No - MUSCULOSKELETAL/RHEUMATOLOGICAL Hx Musculoskeletal Disorders: Yes Hx Degenerative Joint Disease: Yes - GENITOURINARY/GYNECOLOGICAL Hx Genitourinary Disorders: Yes Hx Urinary Tract Infection: Yes - PSYCHIATRIC Hx Anxiety: Yes Hx Depression: Yes Hx Substance Use: No - SURGICAL HISTORY Hx Appendectomy: Yes - ANESTHESIA Hx Anesthesia: Yes Hx Anesthesia Reactions: No Hx Malignant Hyperthermia: No Meds Allergies/Adverse Reactions: Allergies Allergy/AdvReac Type Severity Reaction Status Date / Time No Known Allergies Allergy Verified 12/20/16 14:34 Physical Exam - Constitutional Appears: No Acute Distress - Head Exam Head Exam: ATRAUMATIC, NORMOCEPHALIC - Eye Exam Eye Exam: Normal appearance Pupil Exam: absent: PERRL (No reaction to light bilaterally) - ENT Exam ENT Exam: Mucous Membranes Dry - Respiratory Exam Respiratory Exam: Decreased Breath Sounds. absent: Rales, Rhonchi, Wheezes - Cardiovascular Exam Cardiovascular Exam: REGULAR RHYTHM, +S1, +S2 - GI/Abdominal Exam GI & Abdominal Exam: Normal Bowel Sounds, Soft. absent: Distended, Tenderness - Extremities Exam Extremities exam: Positive for: pedal edema (bilaterally) Additional comments: Chronic venous stasis changes bilaterally in the legs - Neurological Exam Additional comments: Patient minimally responsive to painful stimuli in the ED. On the floors, patient awake and non-verbal. - Skin Skin Exam: Dry, Pallor Additional comments: Chronic venous stasis changes bilaterally in lower extremities Left foot ulcer with 10x5 cm eschar spanning lateral plantar surface Results - Vital Signs Recent Vital Signs: Last Vital Signs Temp 97 F L 02/18/17 07:50 Pulse 75 02/18/17 07:50 Resp 20 02/18/17 07:50 BP 155/48 H 02/18/17 07:50 Pulse Ox 100 02/18/17 07:50 - Labs Result Diagrams: 02/18/17 05:30 02/18/17 05:30 Labs: Laboratory Results - last 24 hr 02/18/17 02/18/17 02/18/17 05:15 05:30 05:30 WBC 34.4 H D RBC 4.18 Hgb 11.4 Hct 37.0 MCV 88.6 MCH 27.3 MCHC 30.8 L RDW 17.4 H Plt Count 340 MPV 8.4 Neut % (Auto) 90.9 H Lymph % (Auto) 3.9 L Long % (Auto) 4.9 Eos % (Auto) 0.1 Baso % (Auto) 0.2 Neut # 31.3 H Lymph # 1.3 Long # 1.7 H Eos # 0.0 Baso # 0.1 Neutrophils % (Manual) 84 H Band Neutrophils % 2 Lymphocytes % (Manual) 5 L Monocytes % (Manual) 8 Eosinophils % (Manual) 1 Platelet Estimate Normal Poikilocytosis (manual Slight Anisocytosis (manual) Slight PT 12.3 H INR 1.1 APTT 30 Puncture Site pCO2 pO2 HCO3 ABG pH ABG Total CO2 ABG O2 Saturation ABG Base Excess Joey Test ABG Potassium A-a O2 Difference Respiratory Index Glucose Lactate FiO2 Sodium Potassium Chloride Carbon Dioxide Anion Gap BUN Creatinine Est GFR ( Amer) Est GFR (Non-Af Amer) POC Glucose (mg/dL) 132 H Random Glucose Hemoglobin A1c Calcium Total Bilirubin AST ALT Alkaline Phosphatase Total Protein Albumin Globulin Albumin/Globulin Ratio Triglycerides Cholesterol LDL Cholesterol Direct HDL Cholesterol Arterial Blood Potassium Blood Type Antibody Screen 02/18/17 02/18/17 02/18/17 05:30 05:30 05:30 WBC RBC Hgb Hct MCV MCH MCHC RDW Plt Count MPV Neut % (Auto) Lymph % (Auto) Long % (Auto) Eos % (Auto) Baso % (Auto) Neut # Lymph # Long # Eos # Baso # Neutrophils % (Manual) Band Neutrophils % Lymphocytes % (Manual) Monocytes % (Manual) Eosinophils % (Manual) Platelet Estimate Poikilocytosis (manual Anisocytosis (manual) PT INR APTT Puncture Site pCO2 pO2 HCO3 ABG pH ABG Total CO2 ABG O2 Saturation ABG Base Excess Joey Test ABG Potassium A-a O2 Difference Respiratory Index Glucose Lactate FiO2 Sodium 137 Potassium 4.4 Chloride 94 L Carbon Dioxide 27 Anion Gap 20 BUN 48 H Creatinine 2.5 H Est GFR ( Amer) 23 Est GFR (Non-Af Amer) 19 POC Glucose (mg/dL) Random Glucose 129 H Hemoglobin A1c 8.9 H D Calcium 9.1 Total Bilirubin 0.6 AST 27 ALT 33 Alkaline Phosphatase 207 H D Total Protein 7.1 Albumin 3.6 Globulin 3.4 Albumin/Globulin Ratio 1.1 Triglycerides 134 Cholesterol 157 LDL Cholesterol Direct 62 HDL Cholesterol 67 Arterial Blood Potassium Blood Type B POSITIVE Antibody Screen Negative 02/18/17 02/18/17 05:37 07:47 WBC RBC Hgb Hct MCV MCH MCHC RDW Plt Count MPV Neut % (Auto) Lymph % (Auto) Long % (Auto) Eos % (Auto) Baso % (Auto) Neut # Lymph # Long # Eos # Baso # Neutrophils % (Manual) Band Neutrophils % Lymphocytes % (Manual) Monocytes % (Manual) Eosinophils % (Manual) Platelet Estimate Poikilocytosis (manual Anisocytosis (manual) PT INR APTT Puncture Site Rr pCO2 46 H pO2 325 H HCO3 29.1 H ABG pH 7.43 ABG Total CO2 31.9 H ABG O2 Saturation 98.7 H ABG Base Excess 5.3 H Joey Test Pos ABG Potassium 4.1 A-a O2 Difference 331.0 Respiratory Index 1.0 Glucose 140 H Lactate 0.7 FiO2 100.0 Sodium 132.0 Potassium Chloride 100.0 Carbon Dioxide Anion Gap BUN Creatinine Est GFR ( Amer) Est GFR (Non-Af Amer) POC Glucose (mg/dL) 117 H Random Glucose Hemoglobin A1c Calcium Total Bilirubin AST ALT Alkaline Phosphatase Total Protein Albumin Globulin Albumin/Globulin Ratio Triglycerides Cholesterol LDL Cholesterol Direct HDL Cholesterol Arterial Blood Potassium 4.1 Blood Type Antibody Screen Assessment & Plan - Assessment and Plan (Free Text) Plan: Altered Mental Status CT Head negative for Acute Territorial Infarction Patient found hypoglycemic by both and EMS with symptoms that suggest seizure episode. Patient is a poorly controlled diabetic. Monitor Accuchecks qACHS and Q4H Patient likely had an episode of neuroglycopenia and currently in post-ictal state. Due to post-ictal state, decision made to avoid narcotic pain medications. NPO for now since patient failed bedside swallow evaluation. CORRESPONDENT saw her today but patient was too lethargic for proper evaluation. They will reassess in the AM. History of End Stage Renal Disease On HD T,Th,S Non-Healing Left Heel Ulcer Podiatry consult - Dr. Avery, help appreciated Infectious Disease Dr. Wellington consulted, help appreciated. Santyl topical Low ext arterial duplex (02/04/17): R- occlusion R post tib artery, 50-75% stenosis right mid popliteal & proximal anterior tib arteries L- occlusion of left post tib artery, >75% stenosis left proximal ant tibial artery, 50-75% stenosis left distal SFA & proximal popliteal a. Vancomycin 1000 mg IV MWF [facility] Cefepime [address] Avery recommended Left BKA given his physical exam findings. Leukocytosis Patient given steroids on prior admission. Per chart review, patient received dose of solumedrol 40 mg IV on 02/13 and 02/14 ABG lactate 0.7 Will continue to trend for now History of hypertension Lopressor 5 mg IV one time dose given. For now, we are wary of using IV antihypertensive medications because the patient is in a fragile state. We requested but were unable to attain ICU monitoring. PO Home medications held since patient NPO Anemia of Chronic Disease H/H 11. Likely secondary to ESRD Monitor accordingly Diabetes Accuchecks Q4H for now Patient NPO currently Will discuss further with Dr. Myrick
--- NOTE | 2017-02-18 16:26 | CP.PCM.CON ---
History of Present Illness - History of Present Illness History of Present Illness: 71 year old female with PMHx ESRD (dialysis TTS), CHF, HTN, DM2, PVD, depression , anemia of chronic disease, chronic low back pain, glaucoma who presents this morning with altered mental status. Has non healing ulcer to left heel Hx PVD PMHx: Per , ESRD (dialysis TTS), CHF, HTN, DM2, PVD, depression, anemia of chronic disease, chronic low back pain, glaucoma PSHx: Per , Appendectomy, AV fistula, lower extremity artherectomy Allergies: NKDA Family history: not contributory Social History: Lives with in [place]. Per , denies any smoking, denies ETOH or drug abuse - [facility] Procedures ANESTH INJECT-SPIN CANAL (01/08/15) ANGIOPLASTY OF OTHER NON-CORONARY VESSEL(S) (03/01/14) ATHERECTOMY OF OTHER NON-CORONARY VESSEL(S) (03/01/14) BYPASS L BASILIC VEIN TO UP VEIN W SYNTH SUB, OPEN (10/21/16) DILATION OF LEFT POPLITEAL ARTERY, PERCUTANEOUS APPROACH (10/21/16) DRAINAGE OF LEFT LOWER ARM SKIN, EXTERNAL APPROACH (11/28/16) DRAINAGE OF LEFT PLEURAL CAVITY, PERCUTANEOUS APPROACH (10/10/15) EXCISION OF LEFT LOWER ARM SKIN, EXTERNAL APPROACH (11/28/16) EXERCISE TREATMENT OF MUSCULOSK WHOLE USING ASSIST EQUIPMENT (10/17/15) GAIT TRAINING/AMBULAT TREATMENT USING ASSIST EQUIPMENT (10/17/15) HOME MANAGEMENT TREATMENT USING ASSIST EQUIPMENT (10/17/15) IMMOBILIZ/WOUND ATTN NEC (06/24/13) INJECT STEROID (01/08/15) INJECT/INFUSE NEC (01/08/14) INSEJ OF DRUG-ELUTING STENT(S) OF OTH PERIPHERAL VESSEL(S) (03/01/14) INSERT INFUSION DEV IN R INT JUGULAR VEIN, PERC (10/21/16) INSERTION OF INFUSION DEV INTO SUP VENA CAVA, PERC APPROACH (11/28/16) INSERTION OF TWO VASCULAR STENTS (03/01/14) INTRODUCE OF OTH ANTI-INFECT INTO PERIPH VEIN, PERC APPROACH (10/17/15) MEASURE OF CARDIAC SAMPL & PRESSURE, L HEART, PERC APPROACH (12/20/16) PERFORMANCE OF URINARY FILTRATION, MULTIPLE (12/20/16) PERFORMANCE OF URINARY FILTRATION, SINGLE (02/10/17) PLAIN RADIOGRAPHY OF LEFT HEART USING LOW OSMOLAR CONTRAST (12/20/16) PLAIN RADIOGRAPHY OF MULT COR ART USING L OSM CONTRAST (12/20/16) PROCEDURE ON SINGLE VESSEL (03/01/14) SPINAL CANAL INJECT NEC (01/08/15) TRANSFUSE NONAUT RED BLOOD CELLS IN PERIPH VEIN, PERC (11/28/16) VACCINATION NEC (11/29/14) Family History: States: Unknown Family Hx - Social History Hx Alcohol Use: No Hx Substance Use: No - Immunization History Hx Tetanus Toxoid Vaccination: No Hx Influenza Vaccination: No Hx Pneumococcal Vaccination: No Review Of Systems Review Of Systems: ROS cannot be obtained secondary to pt's inabilty to answer questions. Past Patient History - Infectious Disease Hx of Infectious Diseases: None - Tetanus Immunizations Tetanus Immunization: Unknown - Past Medical History & Family History Past Medical History?: Yes - Past Social History Smoking Status: Never Smoked - CARDIAC Hx Cardiac Disorders: Yes Hx Congestive Heart Failure: Yes Hx Hypercholesterolemia: Yes Hx Hypertension: Yes - PULMONARY Hx Respiratory Disorders: No - NEUROLOGICAL Hx Neurological Disorder: No - HEENT Hx HEENT Problems: Yes Hx Cataracts: Yes - RENAL Hx Chronic Kidney Disease: Yes Date of Last Dialysis Treatment: 02/17/17 - ENDOCRINE/METABOLIC Hx Endocrine Disorders: Yes Hx Diabetes Mellitus Type 2: Yes - HEMATOLOGICAL/ONCOLOGICAL Hx Blood Disorders: Yes Hx Anemia: Yes Hx Human Immunodeficiency Virus (HIV): No - INTEGUMENTARY Hx Dermatological Problems: Yes Other/Comment: wound on left foot - MUSCULOSKELETAL/RHEUMATOLOGICAL Hx Musculoskeletal Disorders: Yes Hx Degenerative Joint Disease: Yes Hx Falls: Yes - GASTROINTESTINAL Hx Gastrointestinal Disorders: No - GENITOURINARY/GYNECOLOGICAL Hx Genitourinary Disorders: Yes Hx Urinary Tract Infection: Yes - PSYCHIATRIC Hx Anxiety: Yes Hx Depression: Yes Hx Substance Use: Yes - SURGICAL HISTORY Hx Appendectomy: Yes - ANESTHESIA Hx Anesthesia: Yes Hx Anesthesia Reactions: No Hx Malignant Hyperthermia: No Meds Allergies/Adverse Reactions: Allergies Allergy/AdvReac Type Severity Reaction Status Date / Time No Known Allergies Allergy Verified 12/20/16 14:34 - Medications Medications: Current Medications Amlodipine Besylate (Norvasc) 5 mg PO DAILY [facility] Last Admin: 02/18/17 11:52 Dose: Not Given Bumetanide (Bumex) 1 mg PO [facility] Furosemide (Lasix) 40 mg PO DAILY [facility] Last Admin: 02/18/17 11:53 Dose: Not Given Losartan Potassium (Cozaar) 100 mg PO DAILY [facility] Last Admin: 02/18/17 11:53 Dose: Not Given Pneumococcal Polyvalent Vaccine (Pneumovax 23 Vaccine) 0.5 ml IM .ONCE ONE Stop: 02/21/17 14:01 Rosuvastatin Calcium (Crestor) 10 mg PO HS [facility] Sertraline HCl (Zoloft) 50 mg PO HS [facility] Results - Vital Signs Recent Vital Signs: Last Vital Signs Temp 98.2 F 02/18/17 15:18 Pulse 88 02/18/17 15:18 Resp 18 02/18/17 15:18 BP 163/57 H 02/18/17 15:18 Pulse Ox 100 02/18/17 15:18 - Labs Result Diagrams: 02/18/17 05:30 02/18/17 05:30 Labs: Laboratory Results - last 24 hr 02/18/17 02/18/17 02/18/17 05:15 05:30 05:30 WBC 34.4 H D RBC 4.18 Hgb 11.4 Hct 37.0 MCV 88.6 MCH 27.3 MCHC 30.8 L RDW 17.4 H Plt Count 340 MPV 8.4 Neut % (Auto) 90.9 H Lymph % (Auto) 3.9 L Dickey % (Auto) 4.9 Eos % (Auto) 0.1 Baso % (Auto) 0.2 Neut # 31.3 H Lymph # 1.3 Dickey # 1.7 H Eos # 0.0 Baso # 0.1 Neutrophils % (Manual) 84 H Band Neutrophils % 2 Lymphocytes % (Manual) 5 L Monocytes % (Manual) 8 Eosinophils % (Manual) 1 Platelet Estimate Normal Poikilocytosis (manual Slight Anisocytosis (manual) Slight PT 12.3 H INR 1.1 APTT 30 Puncture Site pCO2 pO2 HCO3 ABG pH ABG Total CO2 ABG O2 Saturation ABG Base Excess Joey Test ABG Potassium A-a O2 Difference Respiratory Index Glucose Lactate FiO2 Sodium Potassium Chloride Carbon Dioxide Anion Gap BUN Creatinine Est GFR ( Amer) Est GFR (Non-Af Amer) POC Glucose (mg/dL) 132 H Random Glucose Hemoglobin A1c Calcium Total Bilirubin AST ALT Alkaline Phosphatase Total Protein Albumin Globulin Albumin/Globulin Ratio Triglycerides Cholesterol LDL Cholesterol Direct HDL Cholesterol Arterial Blood Potassium Blood Type Antibody Screen 02/18/17 02/18/17 02/18/17 05:30 05:30 05:30 WBC RBC Hgb Hct MCV MCH MCHC RDW Plt Count MPV Neut % (Auto) Lymph % (Auto) Dickey % (Auto) Eos % (Auto) Baso % (Auto) Neut # Lymph # Dickey # Eos # Baso # Neutrophils % (Manual) Band Neutrophils % Lymphocytes % (Manual) Monocytes % (Manual) Eosinophils % (Manual) Platelet Estimate Poikilocytosis (manual Anisocytosis (manual) PT INR APTT Puncture Site pCO2 pO2 HCO3 ABG pH ABG Total CO2 ABG O2 Saturation ABG Base Excess Joey Test ABG Potassium A-a O2 Difference Respiratory Index Glucose Lactate FiO2 Sodium 137 Potassium 4.4 Chloride 94 L Carbon Dioxide 27 Anion Gap 20 BUN 48 H Creatinine 2.5 H Est GFR ( Amer) 23 Est GFR (Non-Af Amer) 19 POC Glucose (mg/dL) Random Glucose 129 H Hemoglobin A1c 8.9 H D Calcium 9.1 Total Bilirubin 0.6 AST 27 ALT 33 Alkaline Phosphatase 207 H D Total Protein 7.1 Albumin 3.6 Globulin 3.4 Albumin/Globulin Ratio 1.1 Triglycerides 134 Cholesterol 157 LDL Cholesterol Direct 62 HDL Cholesterol 67 Arterial Blood Potassium Blood Type B POSITIVE Antibody Screen Negative 02/18/17 02/18/17 02/18/17 05:37 07:47 11:42 WBC RBC Hgb Hct MCV MCH MCHC RDW Plt Count MPV Neut % (Auto) Lymph % (Auto) Dickey % (Auto) Eos % (Auto) Baso % (Auto) Neut # Lymph # Dickey # Eos # Baso # Neutrophils % (Manual) Band Neutrophils % Lymphocytes % (Manual) Monocytes % (Manual) Eosinophils % (Manual) Platelet Estimate Poikilocytosis (manual Anisocytosis (manual) PT INR APTT Puncture Site Rr pCO2 46 H pO2 325 H HCO3 29.1 H ABG pH 7.43 ABG Total CO2 31.9 H ABG O2 Saturation 98.7 H ABG Base Excess 5.3 H Joey Test Pos ABG Potassium 4.1 A-a O2 Difference 331.0 Respiratory Index 1.0 Glucose 140 H Lactate 0.7 FiO2 100.0 Sodium 132.0 Potassium Chloride 100.0 Carbon Dioxide Anion Gap BUN Creatinine Est GFR ( Amer) Est GFR (Non-Af Amer) POC Glucose (mg/dL) 117 H 140 H Random Glucose Hemoglobin A1c Calcium Total Bilirubin AST ALT Alkaline Phosphatase Total Protein Albumin Globulin Albumin/Globulin Ratio Triglycerides Cholesterol LDL Cholesterol Direct HDL Cholesterol Arterial Blood Potassium 4.1 Blood Type Antibody Screen
[2017-02-18] MEDS ORDERED: Metoprolol 1 mg/ml Inj IVP ONE (18:43)
--- NOTE | 2017-02-18 21:36 | CON ---
DATE: 02/18/2017 CONSULT REQUESTED BY: Dr. Myrick. HISTORY OF PRESENT ILLNESS: This is a 71-year-old female seen at bedside, lethargic as she is in significant pain. She presents with a left lateral gangrenous lesion about calcaneus and lateral aspect of the foot. The leg is cold to the touch with no palpable pulses. It appears that the patient is in some discomfort which could potentially be ischemic in origin. The patient at this point without significantly improved from my standpoint from a local debridement of her foot, and most likely will benefit from a below-knee amputation. Message sent to Dr. Myrick concerning my findings, and offered to speak to the family concerning the need for below-knee amputation. Ellis Boothe DPM
[2017-02-19 07:39] LABS: BASO % 0.2 % (0.0-2.0); EOS # 0.1 K/uL (0.0-0.7); EOS % 0.2 % (0.0-4.0); HEMATOCRIT 30.9 % (34.0-47.0); LYMPH # 1.4 K/uL (1.0-4.3); LYMPH % 5.8 % (20.0-40.0); MEAN CELL VOLUME 89.1 fL (81.0-99.0); MEAN CORPUSCULAR HEMOGLOBIN 27.5 pg (27.0-31.0); MEAN CORPUSCULAR HGB CONC 30.8 g/dL (33.0-37.0); MEAN PLATELET VOLUME 9.3 fL (7.2-11.7); MONO # 2.1 K/uL (0.0-0.8); MONO % 9.3 % (0.0-10.0); PLATELET COUNT 333 K/uL (130-400); WHITE BLOOD COUNT 23.2 K/uL (4.8-10.8)
[2017-02-19 08:07] LABS: NEUTROPHIL 87 % (50-75); TOTAL CELLS COUNTED 100
[2017-02-19 08:13] LABS: POTASSIUM 4.6 mmol/L (3.6-5.2)
[2017-02-19 08:15] LABS: ALB/GLOB RATIO 1.1 (1.0-2.1); BILIRUBIN,TOTAL 0.6 mg/dL (0.2-1.3)
[2017-02-19 08:16] LABS: CALCIUM 8.7 mg/dl (8.6-10.4); MAGNESIUM 1.7 mg/dL (1.6-2.3); PHOSPHOROUS 4.9 mg/dL (2.5-4.5)
[2017-02-19] MEDS: Thiamine 100 mg/ml Inj IV SCH ×2 (12:24→22:51)
[2017-02-19] MEDS: (Novolin R) Insulin Human Regular 100 units/ml vial SC SCH ×3 (14:56→22:24)
[2017-02-19] MEDS: Epoetin Alfa 10,000 unit/ml Dialysis IV SCH (17:22)
[2017-02-19] MEDS: Ferric Sodium Gluconat Complex 62.5 mg/5 ml Vial IVPB SCH (17:23)
[2017-02-19] MEDS ORDERED: Iodixanol 320 MG/ML 100 ML BOTTLE IV ONE (17:38)
--- NOTE | 2017-02-19 19:37 | CP.PCM.PN ---
Subjective - Date & Time of Evaluation Date of Evaluation: 02/19/17 Time of Evaluation: 10:00 - Subjective Subjective: C DIFF + IV AND PO RX ORDERED Objective - Vital Signs/Intake and Output Vital Signs (last 24 hours): Temp Pulse Resp BP Pulse Ox 97.8 F 90 16 123/60 100 02/19/17 15:40 02/19/17 18:45 02/19/17 18:45 02/19/17 18:45 02/19/17 18:45 - Medications Medications: Current Medications Amlodipine Besylate (Norvasc) 5 mg PO DAILY [facility] Last Admin: 02/18/17 11:52 Dose: Not Given Bumetanide (Bumex) 1 mg PO MWF [facility] Epoetin Maxwell (Procrit) 10,000 unit IV TTS [facility] Stop: 03/03/17 10:01 Last Admin: 02/19/17 17:22 Dose: 10,000 unit Ferric Sodium Gluconate Complex (Ferrlecit) 125 mg IVPB TTS [facility] Stop: 02/24/17 10:01 Last Admin: 02/19/17 17:23 Dose: 125 mg Furosemide (Lasix) 40 mg PO DAILY [facility] Last Admin: 02/18/17 11:53 Dose: Not Given Cefepime HCl 1 gm/ Dextrose 50 mls @ 100 mls/hr IVPB Q24H [facility] Last Admin: 02/18/17 18:30 Dose: 100 mls/hr Vancomycin HCl 1,000 mg/ (Sodium Chloride) 250 mls @ 166.6 mls/hr IVPB MWF [facility] Metronidazole (Flagyl) 500 mg in 100 mls @ 100 mls/hr IVPB Q8 [facility] Insulin Human Regular (Novolin R) 0 unit SC ACHS [facility] PRN Reason: Protocol Last Admin: 02/19/17 14:56 Dose: Not Given Losartan Potassium (Cozaar) 100 mg PO DAILY [facility] Last Admin: 02/18/17 11:53 Dose: Not Given Pneumococcal Polyvalent Vaccine (Pneumovax 23 Vaccine) 0.5 ml IM .ONCE ONE Stop: 02/21/17 14:01 Rosuvastatin Calcium (Crestor) 10 mg PO HS [facility] Last Admin: 02/18/17 22:53 Dose: Not Given Thiamine HCl (Vitamin B1 Inj) 100 mg IV Q12H [facility] Last Admin: 02/19/17 12:24 Dose: 100 mg Vancomycin HCl (Vancocin (Oral Or Rectal Use)) 125 mg PO QID [facility] - Labs Labs: 02/19/17 07:26 02/19/17 07:26 PT 12.3 SECONDS (9.7-12.2) H 02/18/17 05:30 INR 1.1 02/18/17 05:30 APTT 30 SECONDS (21-34) 02/18/17 05:30
[2017-02-19] MEDS: Vancomycin 125 MG/5 ML SOLN (ORAL/RECTAL) PO SCH ×2 (19:50→22:25)
--- NOTE | 2017-02-19 19:57 | CP.PCM.CON ---
History of Present Illness - History of Present Illness History of Present Illness: REASONS FOR CONSULT : ESRD AND ITS COMPLICATIONS .. ON HD Ben Garcia PT IS WELL KNOWN TO ME FOR THE LAST 5YEARS WITH MMP AND FREQUENT ADMISSIONS PT WAS SEEN AND EXAMINED TODAY ON HD This is a 71 year old female with PMHx ESRD (dialysis TTS), CHF, HTN, DM2, PVD, depression, anemia of chronic disease, chronic low back pain, glaucoma who presents this morning with altered mental status. Patient's last known well time was yesterday 02/17/17 before 5PM. Per , patient normally gets very fatigued and does not behave like usual after dialysis. Patient's baseline is such where she normally speaks properly. The stated that he left the patient alone, but at around 4AM this morning, the stated that he noticed that the patient was foaming at the mouth and gasping for air. The states that he measured her blood glucose and found it at 47. The stated that he proceeded to call the ambulance and states that the patient was given D50 with new glucose reading of 258. ROS unable to ascertain because the patient is unresponsive to stimuli. PMHx: Per , ESRD (dialysis TTS), CHF, HTN, DM2, PVD, depression, anemia of chronic disease, chronic low back pain, glaucoma PSHx: Per , Appendectomy, AV fistula, lower extremity artherectomy Allergies: NKDA Family history: not contributory Social History: Lives with in [place]. Per , denies any smoking, denies ETOH or drug abuse PMD: Dr Myrick Past Patient History - Infectious Disease Hx of Infectious Diseases: None - Tetanus Immunizations Tetanus Immunization: Unknown - Past Medical History & Family History Past Medical History?: Yes - Past Social History Smoking Status: Never Smoked - CARDIAC Hx Hypercholesterolemia: Yes Hx Hypertension: Yes - PULMONARY Hx Respiratory Disorders: No - NEUROLOGICAL Hx Neurological Disorder: No - HEENT Hx HEENT Problems: Yes Hx Cataracts: Yes - RENAL Hx Chronic Kidney Disease: Yes - ENDOCRINE/METABOLIC Hx Diabetes Mellitus Type 2: Yes - HEMATOLOGICAL/ONCOLOGICAL Hx Anemia: Yes Hx Human Immunodeficiency Virus (HIV): No - INTEGUMENTARY Hx Dermatological Problems: No - MUSCULOSKELETAL/RHEUMATOLOGICAL Hx Musculoskeletal Disorders: Yes Hx Degenerative Joint Disease: Yes - GENITOURINARY/GYNECOLOGICAL Hx Genitourinary Disorders: Yes Hx Urinary Tract Infection: Yes - PSYCHIATRIC Hx Anxiety: Yes Hx Depression: Yes Hx Substance Use: No - SURGICAL HISTORY Hx Appendectomy: Yes - ANESTHESIA Hx Anesthesia: Yes Hx Anesthesia Reactions: No Hx Malignant Hyperthermia: No Meds Allergies/Adverse Reactions: Allergies Allergy/AdvReac Type Severity Reaction Status Date / Time No Known Allergies Allergy Verified 12/20/16 14:34 - Medications Medications: Current Medications Amlodipine Besylate (Norvasc) 5 mg PO DAILY [facility] Last Admin: 02/18/17 11:52 Dose: Not Given Bumetanide (Bumex) 1 mg PO MWF [facility] Epoetin Maxwell (Procrit) 10,000 unit IV TTS [facility] Stop: 03/03/17 10:01 Last Admin: 02/19/17 17:22 Dose: 10,000 unit Ferric Sodium Gluconate Complex (Ferrlecit) 125 mg IVPB TTS [facility] Stop: 02/24/17 10:01 Last Admin: 02/19/17 17:23 Dose: 125 mg Furosemide (Lasix) 40 mg PO DAILY [facility] Last Admin: 02/18/17 11:53 Dose: Not Given Cefepime HCl 1 gm/ Dextrose 50 mls @ 100 mls/hr IVPB Q24H [facility] Last Admin: 02/19/17 19:47 Dose: 100 mls/hr Vancomycin HCl 1,000 mg/ (Sodium Chloride) 250 mls @ 166.6 mls/hr IVPB MWF [facility] Metronidazole (Flagyl) 500 mg in 100 mls @ 100 mls/hr IVPB Q8 [facility] Insulin Human Regular (Novolin R) 0 unit SC ACHS [facility] PRN Reason: Protocol Last Admin: 02/19/17 19:49 Dose: Not Given Losartan Potassium (Cozaar) 100 mg PO DAILY [facility] Last Admin: 02/18/17 11:53 Dose: Not Given Pneumococcal Polyvalent Vaccine (Pneumovax 23 Vaccine) 0.5 ml IM .ONCE ONE Stop: 02/21/17 14:01 Rosuvastatin Calcium (Crestor) 10 mg PO HS [facility] Last Admin: 02/18/17 22:53 Dose: Not Given Thiamine HCl (Vitamin B1 Inj) 100 mg IV Q12H [facility] Last Admin: 02/19/17 12:24 Dose: 100 mg Vancomycin HCl (Vancocin (Oral Or Rectal Use)) 125 mg PO QID [facility] Last Admin: 02/19/17 19:50 Dose: Not Given Results - Vital Signs Recent Vital Signs: Last Vital Signs Temp 97.8 F 02/19/17 15:40 Pulse 90 02/19/17 18:45 Resp 16 02/19/17 18:45 BP 123/60 02/19/17 18:45 Pulse Ox 100 02/19/17 18:45 - Labs Result Diagrams: 02/19/17 07:26 02/19/17 07:26 Labs: Laboratory Results - last 24 hr 02/18/17 02/18/17 02/18/17 06:22 16:31 20:20 WBC RBC Hgb Hct MCV MCH MCHC RDW Plt Count MPV Neut % (Auto) Lymph % (Auto) Maverick % (Auto) Eos % (Auto) Baso % (Auto) Neut # Lymph # Maverick # Eos # Baso # Neutrophils % (Manual) Lymphocytes % (Manual) Monocytes % (Manual) Platelet Estimate Hypochromasia (manual) Anisocytosis (manual) Sodium Potassium Chloride Carbon Dioxide Anion Gap BUN Creatinine Est GFR ( Amer) Est GFR (Non-Af Amer) POC Glucose (mg/dL) 152 H Random Glucose Lactic Acid Calcium Phosphorus Magnesium Total Bilirubin AST ALT Alkaline Phosphatase Total Protein Albumin Globulin Albumin/Globulin Ratio Procalcitonin 1.43 H C. difficile Ag & Toxin Positive H 02/18/17 02/19/17 02/19/17 21:18 00:32 01:21 WBC RBC Hgb Hct MCV MCH MCHC RDW Plt Count MPV Neut % (Auto) Lymph % (Auto) Maverick % (Auto) Eos % (Auto) Baso % (Auto) Neut # Lymph # Maverick # Eos # Baso # Neutrophils % (Manual) Lymphocytes % (Manual) Monocytes % (Manual) Platelet Estimate Hypochromasia (manual) Anisocytosis (manual) Sodium Potassium Chloride Carbon Dioxide Anion Gap BUN Creatinine Est GFR ( Amer) Est GFR (Non-Af Amer) POC Glucose (mg/dL) 143 H 185 H Random Glucose Lactic Acid 0.9 Calcium Phosphorus Magnesium Total Bilirubin AST ALT Alkaline Phosphatase Total Protein Albumin Globulin Albumin/Globulin Ratio Procalcitonin C. difficile Ag & Toxin 02/19/17 02/19/17 02/19/17 04:12 06:36 07:26 WBC 23.2 H RBC 3.47 L Hgb 9.5 L Hct 30.9 L MCV 89.1 MCH 27.5 MCHC 30.8 L RDW 18.0 H Plt Count 333 MPV 9.3 Neut % (Auto) 84.5 H Lymph % (Auto) 5.8 L Maverick % (Auto) 9.3 Eos % (Auto) 0.2 Baso % (Auto) 0.2 Neut # 19.6 H Lymph # 1.4 Maverick # 2.1 H Eos # 0.1 Baso # 0.0 Neutrophils % (Manual) 87 H Lymphocytes % (Manual) 7 L Monocytes % (Manual) 6 Platelet Estimate Normal Hypochromasia (manual) Slight Anisocytosis (manual) Slight Sodium Potassium Chloride Carbon Dioxide Anion Gap BUN Creatinine Est GFR ( Amer) Est GFR (Non-Af Amer) POC Glucose (mg/dL) 266 H 265 H Random Glucose Lactic Acid Calcium Phosphorus Magnesium Total Bilirubin AST ALT Alkaline Phosphatase Total Protein Albumin Globulin Albumin/Globulin Ratio Procalcitonin C. difficile Ag & Toxin 02/19/17 02/19/17 02/19/17 07:26 11:14 16:57 WBC RBC Hgb Hct MCV MCH MCHC RDW Plt Count MPV Neut % (Auto) Lymph % (Auto) Maverick % (Auto) Eos % (Auto) Baso % (Auto) Neut # Lymph # Maverick # Eos # Baso # Neutrophils % (Manual) Lymphocytes % (Manual) Monocytes % (Manual) Platelet Estimate Hypochromasia (manual) Anisocytosis (manual) Sodium 136 Potassium 4.6 Chloride 94 L Carbon Dioxide 23 Anion Gap 24 H BUN 53 H Creatinine 2.8 H Est GFR ( Amer) 20 Est GFR (Non-Af Amer) 17 POC Glucose (mg/dL) 296 H 384 H Random Glucose 243 H Lactic Acid Calcium 8.7 Phosphorus 4.9 H Magnesium 1.7 Total Bilirubin 0.6 AST 21 ALT 29 Alkaline Phosphatase 160 H D Total Protein 6.0 L Albumin 3.1 L Globulin 2.9 Albumin/Globulin Ratio 1.1 Procalcitonin C. difficile Ag & Toxin Assessment & Plan - Assessment and Plan (Free Text) Assessment: ESRD ON HD T T S ANEMIA OF CKD .. START EPO AND FERRLICIT MULTIPLE CO MORBIDITIES P : WILL C/O HD SCHEDULE EPO AND FERRLICIT FOR ANEMIA C/O CURRENT CARE C/O PRESENT MANAGEMENT - Date & Time Date: 02/19/17 Time: 15:00
--- NOTE | 2017-02-19 20:40 | CP.PCM.PN ---
<Piyush Segura - Last Filed: 02/20/17 00:29> Subjective - Date & Time of Evaluation Date of Evaluation: 02/20/17 Time of Evaluation: 09:30 - Subjective Subjective: PGY-[address] Myrick Patient seen and examined at bedside. Patient appears improved from yesterday. Patient is able to make more incomprehensible sounds than yesterday. However, patient is still unable to form words. Patient seems a bit agitated and wishes to get up from the bed. Patient intermittently following very simple commands. ROS unable to ascertain due to mental status. Objective - Vital Signs/Intake and Output Vital Signs (last 24 hours): Temp Pulse Resp BP Pulse Ox 97.9 F 93 H 20 162/70 H 100 02/19/17 19:04 02/19/17 19:04 02/19/17 19:04 02/19/17 19:04 02/19/17 19:04 - Medications Medications: Current Medications Amlodipine Besylate (Norvasc) 5 mg PO DAILY [facility] Last Admin: 02/18/17 11:52 Dose: Not Given Bumetanide (Bumex) 1 mg PO MWF [facility] Epoetin Maxwell (Procrit) 10,000 unit IV TTS [facility] Stop: 03/03/17 10:01 Last Admin: 02/19/17 17:22 Dose: 10,000 unit Ferric Sodium Gluconate Complex (Ferrlecit) 125 mg IVPB TTS [facility] Stop: 02/24/17 10:01 Last Admin: 02/19/17 17:23 Dose: 125 mg Furosemide (Lasix) 40 mg PO DAILY [facility] Last Admin: 02/18/17 11:53 Dose: Not Given Cefepime HCl 1 gm/ Dextrose 50 mls @ 100 mls/hr IVPB Q24H [facility] Last Admin: 02/19/17 19:47 Dose: 100 mls/hr Vancomycin HCl 1,000 mg/ (Sodium Chloride) 250 mls @ 166.6 mls/hr IVPB MWF [facility] Metronidazole (Flagyl) 500 mg in 100 mls @ 100 mls/hr IVPB Q8 [facility] Insulin Human Regular (Novolin R) 0 unit SC ACHS [facility] PRN Reason: Protocol Last Admin: 02/19/17 19:49 Dose: Not Given Losartan Potassium (Cozaar) 100 mg PO DAILY [facility] Last Admin: 02/18/17 11:53 Dose: Not Given Pneumococcal Polyvalent Vaccine (Pneumovax 23 Vaccine) 0.5 ml IM .ONCE ONE Stop: 02/21/17 14:01 Rosuvastatin Calcium (Crestor) 10 mg PO HS [facility] Last Admin: 02/18/17 22:53 Dose: Not Given Thiamine HCl (Vitamin B1 Inj) 100 mg IV Q12H [facility] Last Admin: 02/19/17 12:24 Dose: 100 mg Vancomycin HCl (Vancocin (Oral Or Rectal Use)) 125 mg PO QID [facility] Last Admin: 02/19/17 19:50 Dose: Not Given - Labs Labs: 02/19/17 07:26 02/19/17 07:26 PT 12.3 SECONDS (9.7-12.2) H 02/18/17 05:30 INR 1.1 02/18/17 05:30 APTT 30 SECONDS (21-34) 02/18/17 05:30 - Constitutional Appears: Agitated, Confused - Head Exam Head Exam: ATRAUMATIC, NORMOCEPHALIC - Eye Exam Eye Exam: EOMI. absent: PERRL - ENT Exam ENT Exam: Mucous Membranes Dry - Respiratory Exam Respiratory Exam: Clear to Ausculation Bilateral. absent: Rales, Rhonchi, Wheezes - Cardiovascular Exam Cardiovascular Exam: REGULAR RHYTHM, +S1, +S2 - GI/Abdominal Exam GI & Abdominal Exam: Soft, Normal Bowel Sounds. absent: Distended, Tenderness - Extremities Exam Extremities Exam: Pedal Edema (bilaterally) Additional comments: Chronic venous stasis changes bilaterally in the legs Left foot ulcer with 10x5 cm eschar spanning lateral plantar surface - Back Exam Back Exam: absent: CVA tenderness (L), CVA tenderness (R) - Neurological Exam Neurological Exam: Altered, Awake Additional comments: Moving all 4 extremities. - Skin Skin Exam: Dry, Pallor Assessment and Plan - Assessment and Plan (Free Text) Plan: Altered Mental Status CT Head negative for Acute Territorial Infarction Patient found hypoglycemic by both and EMS with symptoms that suggest seizure episode. Patient is a poorly controlled diabetic. Monitor Accuchecks qACHS and Q4H Patient likely had an episode of neuroglycopenia and currently in post-ictal state. Due to post-ictal state, decision made to avoid narcotic pain medications. NPO for now since patient failed multiple bedside swallow evaluation. CREDIT ADVISOR saw her on date of admission but patient was too lethargic for proper evaluation. CREDIT ADVISOR performed successful bedside swallow eval and recommended Pureed diet with thin liquids. Home PO meds restarted. Neurology consult Dr. Tanisha Aguirre, help appreciated. His recommendations so far were to get an MRI of the brain without contrast and add Thiamine 100 mg IV Q12H History of End Stage Renal Disease On HD T,,S Dr. Ambrose nephrology consult. Non-Healing Left Heel Ulcer Podiatry consult - Dr. Avery, help appreciated Infectious Disease Dr. Wellington consulted, help appreciated. Dr. Broussard on board, help appreciated. Low ext arterial duplex (02/04/17): R- occlusion R post tib artery, 50-75% stenosis right mid popliteal & proximal anterior tib arteries L- occlusion of left post tib artery, >75% stenosis left proximal ant tibial artery, 50-75% stenosis left distal SFA & proximal popliteal a. Vancomycin 1000 mg IV MWF [facility] Cefepime [address] Avery recommended Left BKA given his physical exam findings. Dr. Broussard also recommends the left BKA. He stated that even if the gangrenous portion is removed, it will not heal regardless of revascularization. C. Diff C.Diff studies positive Patient on isolation contact precaution Vancomycin 125 mg PO QID started Dr. Wellington added Flagyl 500 mg IV Q8H Leukocytosis Currently downtrending Patient given steroids on prior admission. Per chart review, patient received dose of solumedrol 40 mg IV on 02/13 and 02/14 ABG lactate 0.7 Procalcitonin 1.43 Will continue to trend for now History of hypertension Lopressor 5 mg IV one time dose given. For now, we are wary of using IV antihypertensive medications because the patient is in a fragile state. We requested but were unable to attain ICU monitoring. PO Home medications resumed * Norvasc 5 mg PO daily * Losartan 100 mg PO daily * Furosemide 40 mg PO daily * Held Bumex for now Anemia of Chronic Disease H/H 11.4/37 on admission Likely secondary to ESRD Hemoglobin dropped from 11.4 to 9.5 F/u stool occult Dr. Ambrose put for IV ferlicet 125 mg and Procrit 10,000 units IV Diabetes Accuchecks qACHS and Q4H for now RISS Restarted Home Lantus 30 units SC HS Prophylactic Measures SCDs for now Decision made to avoid anticoagulation for now due to concern of possible evolving brain bleed or CT occult bleed 1:1 observation due to agitation. Patient tries to get out of bed. Fall precautions Will discuss further with Dr. Myrick <Benson Myrick Jr. - Last Filed: 03/08/17 11:45> Objective - Vital Signs/Intake and Output Vital Signs (last 24 hours): Temp Pulse Resp BP Pulse Ox 97.9 F 76 20 166/69 H 98 03/08/17 08:12 03/08/17 08:12 03/08/17 08:12 03/08/17 10:49 03/08/17 08:12 Intake and Output: 03/08/17 03/08/17 06:59 18:59 Intake Total 770 Balance 770 - Medications Medications: Current Medications Acetaminophen (Tylenol 325mg Tab) 650 mg PO Q6 PRN PRN Reason: Pain, Mild (1-3) Last Admin: 03/07/17 18:20 Dose: 650 mg Amlodipine Besylate (Norvasc) 5 mg PO DAILY [facility] Last Admin: 03/08/17 10:50 Dose: 5 mg Ascorbic Acid (Vitamin C 500 Mg Tab) 500 mg PO DAILY [facility] Last Admin: 03/08/17 10:49 Dose: 500 mg Brimonidine Tartrate (Alphagan 0.2% Opht) 1 ml OU TID [facility] Last Admin: 03/08/17 10:52 Dose: 1 drop Collagenase (Santyl) 0 gm TOP DAILY [facility] Last Admin: 03/08/17 10:50 Dose: Not Given Dextrose (Dextrose 50% Inj) 0 ml IV STAT PRN; Protocol PRN Reason: Hyglycemia Protocol Dextrose (Glutose 15) 0 gm PO ONCE PRN; Protocol PRN Reason: Hypoglycemia Protocol Epoetin Maxwell (Procrit) 10,000 unit IV TTS [facility] Last Admin: 03/07/17 11:29 Dose: 10,000 unit Ergocalciferol (Drisdol 50,000 Intl Units Cap) 1 cap PO QWK [facility] Last Admin: 03/05/17 14:54 Dose: 1 cap Furosemide (Lasix) 40 mg PO DAILY [facility] Last Admin: 03/08/17 10:49 Dose: 40 mg Glucagon (Glucagen Diagnostic Kit) 0 mg IM STAT PRN; Protocol PRN Reason: Hypoglycemia Protocol Heparin Sodium (Porcine) (Heparin) 5,000 units SC Q8 [facility] Last Admin: 03/08/17 04:59 Dose: 5,000 units Heparin Sodium (Porcine) (Heparin) 3,700 units IVP TTS [facility] Stop: 03/24/17 23:59 Last Admin: 03/07/17 11:20 Dose: 3,700 units Hydralazine HCl (Apresoline) 25 mg PO BID [facility] Last Admin: 03/08/17 10:49 Dose: 25 mg Hydromorphone HCl (Dilaudid) 0.5 mg IVP Q6H PRN PRN Reason: Pain, severe (8-10) Last Admin: 03/08/17 10:50 Dose: 0.5 mg Tigecycline 50 mg/ Sodium (Chloride) 100 mls @ 100 mls/hr IVPB Q12H [facility] Last Admin: 03/08/17 08:33 Dose: 100 mls/hr Fluconazole (Diflucan Iv 200 Mg/100 Ml Ns) 100 mls @ 100 mls/hr IVPB DAILY [facility] Last Admin: 03/08/17 11:03 Dose: 100 mls/hr Sodium Chloride 35 meq/Potassium Chloride 30 meq/Magnesium Sulfate 6 meq/ Calcium Gluconate 4.5 meq/Heparin Sodium (Porcine) 1,000 units/ Amino Acids 1, 035.9052 mls @ 63 mls/hr IV .[id number] [facility] Stop: 03/08/17 18:00 Last Admin: 03/08/17 11:03 Dose: 63 mls/hr Sodium Chloride 35 meq/Potassium Chloride 30 meq/Magnesium Sulfate 6 meq/ Calcium Gluconate 4.5 meq/Heparin Sodium (Porcine) 1,000 units/ Amino Acids 1, 035.9052 mls @ 63 mls/hr IV .[id number] ONE Stop: 03/09/17 10:26 Sodium Chloride 35 meq/Potassium Chloride 30 meq/Magnesium Sulfate 6 meq/ Calcium Gluconate 4.5 meq/Heparin Sodium (Porcine) 1,000 units/ Amino Acids 1, 035.9052 mls @ 63 mls/hr IV .[id number] [facility] Stop: 03/09/17 17:59 Insulin Glargine (Lantus) 25 unit SC HS [facility] Last Admin: 03/07/17 21:03 Dose: 25 unit Insulin Human Regular (Novolin R) 0 unit SC ACHS [facility] PRN Reason: Protocol Last Admin: 03/08/17 08:33 Dose: 12 unit Latanoprost (Xalatan Opht) 0.02 ml OU HS [facility] Last Admin: 03/07/17 21:13 Dose: Not Given Losartan Potassium (Cozaar) 100 mg PO DAILY [facility] Last Admin: 03/08/17 10:49 Dose: 100 mg Pantoprazole Sodium (Protonix Inj) 40 mg IVP Q12H [facility] Last Admin: 03/08/17 04:26 Dose: 40 mg Rosuvastatin Calcium (Crestor) 10 mg PO HS [facility] Last Admin: 03/07/17 21:07 Dose: 10 mg Timolol Maleate (Timoptic 0.5% Oph Soln) 1 drop OU BID [facility] Last Admin: 03/08/17 10:51 Dose: 1 drop Vitamin B Complex/Vit C/Folic Acid (Nephro-Alonzo) 1 tab PO 0800 [facility] Last Admin: 03/08/17 08:33 Dose: 1 tab - Labs Labs: 03/07/17 10:03 03/07/17 10:03 PT 12.3 SECONDS (9.7-12.2) H 02/18/17 05:30 INR 1.1 02/18/17 05:30 APTT 30 SECONDS (21-34) 02/18/17 05:30 Attending/Attestation - Attestation I have personally seen and examined this patient.: Yes I have fully participated in the care of the patient.: Yes I have reviewed all pertinent clinical information, including history, physical exam and plan: Yes Notes (Text): 03/08/17 11:45 Agree with resident note and plan of care
--- NOTE | 2017-02-19 21:46 | CON ---
DATE: 02/19/2017 HISTORY OF PRESENT ILLNESS: The patient is a 71-year-old diabetic woman admitted to the emergency room, fairly toxic who I was asked to see for evaluation of her left foot ulcer. This is an ischemic ulcer, gangrene measuring approximately 8 x 3 cm on the lateral aspect of the foot, not involving the toes, but on the lateral aspect and not involving the heel, . Dry, gangrenous, somewhat tender, little boggy with no sepsis coming up the leg that I can see and no induration, the rest of the leg is fairly diminished. The patient has renal insufficiency, has had multiple access procedures, also cardiac evaluation last year, finding multivessel disease, but no intervention recommended. At present, the patient is unable to answer any questions. Examination reveals femoral pulse. No distal pulses in the legs. IMPRESSION: The patient has a gangrenous ulceration of the left foot. RECOMMENDATIONS: The patient to undergo primary below the knee amputation. If I remove this eschar, it will never heal even if we revascularize the patient. I think in a women who is this sick and the safest thing would be to remove infection and proceed from there. If the family wants other aggressive measures such as revascularizations, this can be attempted, but I think the ultimate result will be the same. Ignacio Broussard Jr., MD
[2017-02-19] MEDS: metroNIDAZOLE IV 500 mg/100 ml 500 MG/100 ML BAG IVPB SCH (22:24)
[2017-02-20] MEDS ORDERED: (Lantus) Insulin Glargine, Recombinant SC SCH (00:45)
[2017-02-20] MEDS: (Lantus) Insulin Glargine, Recombinant SC SCH ×2 (01:10→22:15)
[2017-02-20] MEDS: metroNIDAZOLE IV 500 mg/100 ml 500 MG/100 ML BAG IVPB SCH ×3 (06:23→22:08)
[2017-02-20 07:46] LABS: BASO # 0.1 K/uL (0.0-0.2); BASO % 0.3 % (0.0-2.0); EOS # 0.1 K/uL (0.0-0.7); EOS % 0.7 % (0.0-4.0); HEMATOCRIT 28.6 % (34.0-47.0); LYMPH # 1.2 K/uL (1.0-4.3); LYMPH % 6.6 % (20.0-40.0); MEAN CORPUSCULAR HEMOGLOBIN 27.4 pg (27.0-31.0); MEAN CORPUSCULAR HGB CONC 30.8 g/dL (33.0-37.0); MONO # 2.2 K/uL (0.0-0.8); MONO % 12.5 % (0.0-10.0); NRBC % 0.1 % (0.0-2.0); PLATELET COUNT 299 K/uL (130-400); RED CELL DISTRIBUTION WIDTH 18.3 % (11.5-14.5); WHITE BLOOD COUNT 17.9 K/uL (4.8-10.8)
[2017-02-20 07:58] LABS: BILIRUBIN,TOTAL 0.6 mg/dL (0.2-1.3)
[2017-02-20 07:59] LABS: CALCIUM 8.7 mg/dl (8.6-10.4); PHOSPHOROUS 5.1 mg/dL (2.5-4.5); TOTAL PROTEIN 5.8 g/dL (6.3-8.3)
[2017-02-20 08:00] LABS: MAGNESIUM 1.9 mg/dL (1.6-2.3)
--- NOTE | 2017-02-20 08:22 | CON ---
DATE: 02/19/2017 NEUROLOGY CONSULTATION CHIEF COMPLAINT: Altered mental status. HISTORY OF PRESENT ILLNESS: This 71-year-old woman with past medical history of endstage renal disease, who gets dialysis on Tuesdays, , and Saturdays, CHF, hypertension, type 2 diabetes mellitus, peripheral vascular disease, depression, anemia, chronic low back pain, and glaucoma presented to the hospital for altered mental status, approximately last time well-known was on 02/17/2017 before 5 p.m. As per , the patient gets very fatigued and does not behave like usual after dialysis. The patient's baseline, she normally speaks properly. Her measured her blood sugar at home and found to be 47, therefore called the ambulance and D50 was given and her repeat blood sugar was 248. Currently, she has been having hyperglycemic accelerations in the hospital, also her A1c is 8.9 indicating poorly controlled diabetes with underlying sepsis with elevated leukocytosis with Gram negative rods in her wounds as well as she has C. diff. She has systolically low blood pressures on the diastolic side as well. She is undergoing currently dialysis. She is always somnolent, minimal movements of her extremities, not much movement with noxious stimulus on the extremities, but deep sternal rub does open her eyes seldomly. She has elevated prolactin indicating sepsis. CAT scan of the head showed no acute intracranial abnormality. There is chronic ischemic changes. PAST MEDICAL HISTORY: Endstage renal disease on hemodialysis, CHF, hypertension, type 2 diabetes mellitus, peripheral vascular disease, depression, anemia, chronic kidney disease, chronic lower back pain, and glaucoma. ALLERGIES: NO KNOWN DRUG ALLERGIES. FAMILY HISTORY: Noncontributory. SOCIAL HISTORY: No illicit drug use, smoking or EtOH abuse. REVIEW OF SYSTEMS: A 14-point review of system is negative except as in the HPI, difficult to obtain due to the patient's altered mental status. PHYSICAL EXAMINATION: GENERAL: The patient is sitting up in bed in no acute distress. VITAL SIGNS: Temperature 97.8, pulse rate 94, blood pressure 112/50, respiratory rate 16, and oxygen saturation 99% by room air. HEENT: PERRLA. Extraocular muscle intact. NECK: Supple. No JVD. No adenopathy noted. LUNGS: Decreased breath sounds bilaterally. HEART: S1 and S2. Normal rate and rhythm. No murmurs, rubs, or gallops. ABDOMEN: Soft, nontender, and nondistended. Bowel sounds present. EXTREMITIES: Chronic venous stasis changes in bilateral legs. Positive pedal edema bilaterally. NEUROLOGIC: The patient is drowsy, in no acute distress. Speech cannot be assessed due to the patient's altered mental status. Cranial nerves II through XII intact. Motor exam: Intermittent movements of her extremities, withdrawal is minimal to noxious stimulus on the extremities. Toes are downgoing bilaterally. Sensory exam: DTRs are 1+ throughout and absent at the ankles. Coordination and Gait: Deferred for now. LABORATORY DATA: WBC is , hemoglobin , hematocrit 39, and platelet count 333. Sodium is 130, potassium 3.5, chloride 90, carbon dioxide 23, BUN 26, and creatinine 5.1, and random glucose of 308. ASSESSMENT: This is a 71-year-old woman with history of endstage renal disease on hemodialysis, type 2 diabetes mellitus, hypertension, congestive heart failure, peripheral vascular disease, chronic back pain, and came with altered mental status. Her had found her to be in profound hypoglycemia of 47 and likely had possible seizure secondary to hypoglycemia in the field, status post , now is having hyperglycemic accelerations with elevated leukocytosis with possibly underlying Clostridium difficile as well as sepsis from positive wound cultures, Gram negative rods. She has electrolytes derangements as well. At this time, altered mental status seems most likely due to severe organic brain syndrome with underlying severe toxic metabolic encephalopathy. PLAN: At this time: 1. Recommend MRI of the brain to rule out any acute infarctions. 2. Followup with Vascular in regards to her left , which is more than 75%, left anterior tibial artery 75% stenosis and occlusion of the right posterior tibial artery as well. Therefore, needs to be evaluated by Podiatry as well as Vascular. 3. Monitor electrolytes, correct accordingly. 4. antibiotics, avoid medications like in altered mental status given the fact it can worsen the mental status and cause seizures. 5. Recommend thiamine 100 mg IV q. 8 hours. 6. Continue to monitor her blood pressures and keep blood pressures above 120 systolic at this time. Continue . Thank you for this consult. Micah Aguirre MD [facility] # [id number]
[2017-02-20] MEDS: (Novolin R) Insulin Human Regular 100 units/ml vial SC SCH ×4 (08:50→22:07)
[2017-02-20 08:54] LABS: EOSINOPHIL 1 % (0-4); NEUTROPHIL 78 % (50-75); TOTAL CELLS COUNTED 100
--- NOTE | 2017-02-20 09:12 | CP.PCM.PN ---
<Asia Williamson - Last Filed: 02/20/17 20:41> Subjective - Date & Time of Evaluation Date of Evaluation: 02/20/17 Time of Evaluation: 10:00 - Subjective Subjective: Medicine Note for Dr. Myrick Patient seen and examined at bedside. Patient appears improved from yesterday. Patient is able to make more incomprehensible sounds than yesterday. However, patient is still unable to form words. Patient continues to be in pain, requested medications for pain. ROS unable to current mental status. Objective - Vital Signs/Intake and Output Vital Signs (last 24 hours): Temp Pulse Resp BP Pulse Ox 98.7 F 89 20 132/66 95 02/20/17 00:00 02/20/17 04:14 02/20/17 00:00 02/20/17 00:00 02/20/17 00:00 Intake and Output: 02/20/17 02/20/17 06:59 18:59 Intake Total 390 Balance 390 - Medications Medications: Current Medications Amlodipine Besylate (Norvasc) 5 mg PO DAILY [facility] Last Admin: 02/18/17 11:52 Dose: Not Given Bumetanide (Bumex) 1 mg PO [facility] [place]poetin Maxwell (Procrit) 10,000 unit IV TTS [facility] Stop: 03/03/17 10:01 Last Admin: 02/19/17 17:22 Dose: 10,000 unit Ferric Sodium Gluconate Complex (Ferrlecit) 125 mg IVPB TTS [facility] Stop: 02/24/17 10:01 Last Admin: 02/19/17 17:23 Dose: 125 mg Furosemide (Lasix) 40 mg PO DAILY [facility] Last Admin: 02/18/17 11:53 Dose: Not Given Cefepime HCl 1 gm/ Dextrose 50 mls @ 100 mls/hr IVPB Q24H [facility] Last Admin: 02/19/17 19:47 Dose: 100 mls/hr Vancomycin HCl 1,000 mg/ (Sodium Chloride) 250 mls @ 166.6 mls/hr IVPB MWF [facility] Last Admin: 02/20/17 08:50 Dose: 166.6 mls/hr Metronidazole (Flagyl) 500 mg in 100 mls @ 100 mls/hr IVPB Q8 [facility] Last Admin: 02/20/17 06:23 Dose: 100 mls/hr Insulin Glargine (Lantus) 30 unit SC [facility] Last Admin: 02/20/17 01:10 Dose: 30 units Insulin Human Regular (Novolin R) 0 unit SC [facility] PRN Reason: Protocol Last Admin: 02/20/17 08:50 Dose: 6 unit Losartan Potassium (Cozaar) 100 mg PO DAILY [facility] Last Admin: 02/18/17 11:53 Dose: Not Given Pneumococcal Polyvalent Vaccine (Pneumovax 23 Vaccine) 0.5 ml IM .ONCE ONE Stop: 02/21/17 14:01 Rosuvastatin Calcium (Crestor) 10 mg PO [facility] Last Admin: 02/19/17 22:25 Dose: Not Given Thiamine HCl (Vitamin B1 Inj) 100 mg IV Q12H [facility] Last Admin: 02/19/17 22:51 Dose: 100 mg Vancomycin HCl (Vancocin (Oral Or Rectal Use)) 125 mg PO QID [facility] Last Admin: 02/19/17 22:25 Dose: Not Given - Labs Labs: 02/20/17 07:37 02/20/17 07:37 PT 12.3 SECONDS (9.7-12.2) H 02/18/17 05:30 INR 1.1 02/18/17 05:30 APTT 30 SECONDS (21-34) 02/18/17 05:30 - Additional Findings Additional findings: - Constitutional Appears: Agitated, Confused - Head Exam Head Exam: ATRAUMATIC, NORMOCEPHALIC - Eye Exam Eye Exam: EOMI. absent: PERRL - ENT Exam ENT Exam: Mucous Membranes Dry - Respiratory Exam Respiratory Exam: Clear to Ausculation Bilateral. absent: Rales, Rhonchi, Wheezes - Cardiovascular Exam Cardiovascular Exam: REGULAR RHYTHM, +S1, +S2 - GI/Abdominal Exam GI & Abdominal Exam: Soft, Normal Bowel Sounds. absent: Distended, Tenderness - Extremities Exam Extremities Exam: Pedal Edema (bilaterally) Additional comments: Chronic venous stasis changes bilaterally in the legs Left foot ulcer with 10x5 cm eschar spanning lateral plantar surface - Back Exam Back Exam: absent: CVA tenderness (L), CVA tenderness (R) - Neurological Exam Neurological Exam: Altered, Awake Additional comments: Moving all 4 extremities. - Skin Skin Exam: Dry, Pallor Assessment and Plan - Assessment and Plan (Free Text) Plan: Disposition: PATIENT IS TO BE TRANSFERRED TO [facility] for hyperbaric oxygen therapy for left foot necrotic ulcer. Patient will be admitted under Dr. Kris Levin's service. Patient is to be transferred once insurance approved and bed is available for patient. Non-Healing Left Heel Ulcer Podiatry consult - Dr. Avery, help appreciated Infectious Disease Dr. Wellington consulted, help appreciated. Dr. Broussard on board, help appreciated. Low ext arterial duplex (02/04/17): R- occlusion R post tib artery, 50-75% stenosis right mid popliteal & proximal anterior tib arteries L- occlusion of left post tib artery, >75% stenosis left proximal ant tibial artery, 50-75% stenosis left distal SFA & proximal popliteal a. Vancomycin 1000 mg IV MWF [facility] Cefepime 1 gm IV Q24H Abdominal Angiography 02/19/17: Severe bilateral lower extremity arterial runoff with 1 vessel likely remaining patent at the right. None is continuously patent at the left lower extremity [id number]. Please see discussion above. Widely patent abdominal aorta and iliac arterial system with moderate right and [id number] left femoral arterial disease. Severe bilateral popliteal artery arterial disease. Dr. Avery recommended Left BKA given his physical exam findings. Dr. Broussard also recommends the left BKA. He stated that even if the gangrenous portion is removed, it will not heal regardless of revascularization. Altered Mental Status CT Head negative for Acute Territorial Infarction Patient found hypoglycemic by both and EMS with symptoms that suggest seizure episode. Patient is a poorly controlled diabetic. Monitor Accuchecks qACHS and Q4H Patient likely had an episode of neuroglycopenia and currently in post-ictal state. Due to post-ictal state, decision made to avoid narcotic pain medications. NPO for now since patient failed multiple bedside swallow evaluation. PRINTING SALES REPRESENTATIVE saw her on date of admission but patient was too lethargic for proper evaluation. PRINTING SALES REPRESENTATIVE performed successful bedside swallow eval and recommended Pureed diet with thin liquids. Home PO meds restarted. Neurology consult Dr. Tanisha Aguirre, help appreciated. His recommendations so far were to get an MRI of the brain without contrast and add Thiamine 100 mg IV Q12H C. Diff C.Diff studies positive Patient on isolation contact precaution Vancomycin 125 mg PO QID started Dr. Wellington added Flagyl 500 mg IV Q8H History of End Stage Renal Disease On HD T,,S Dr. Ambrose nephrology consult. Leukocytosis Currently downtrending Patient given steroids on prior admission. Per chart review, patient received dose of solumedrol 40 mg IV on 02/13 and 02/14 ABG lactate 0.7 Procalcitonin 1.43 Will continue to trend for now History of hypertension Lopressor 5 mg IV one time dose given. For now, we are wary of using IV antihypertensive medications because the patient is in a fragile state. We requested but were unable to attain ICU monitoring. PO Home medications resumed * Norvasc 5 mg PO daily * Losartan 100 mg PO daily * Furosemide 40 mg PO daily * Held Bumex for now Anemia of Chronic Disease H/H 11.4/37 on admission Likely secondary to ESRD Hemoglobin dropped from 11.[address] Ambrose put for IV ferlicet 125 mg and Procrit 10,000 units IV Diabetes Accuchecks qACHS and Q4H for now [facility] Restarted Home Lantus 30 units SC HS Prophylactic Measures SCDs for now Decision made to avoid anticoagulation for now due to concern of possible evolving brain bleed or CT occult bleed 1:1 observation due to agitation. Patient tries to get out of bed. Fall precautions DW Teri Lou DO, PGY-1 <Benson Myrick Jr. - Last Filed: 03/08/17 11:46> Objective - Vital Signs/Intake and Output Vital Signs (last 24 hours): Temp Pulse Resp BP Pulse Ox 97.9 F 76 20 166/69 H 98 03/08/17 08:12 03/08/17 08:12 03/08/17 08:12 03/08/17 10:49 03/08/17 08:12 Intake and Output: 03/08/17 03/08/17 06:59 18:59 Intake Total 770 Balance 770 - Medications Medications: Current Medications Acetaminophen (Tylenol 325mg Tab) 650 mg PO Q6 PRN PRN Reason: Pain, Mild (1-3) Last Admin: 03/07/17 18:20 Dose: 650 mg Amlodipine Besylate (Norvasc) 5 mg PO DAILY [facility] Last Admin: 03/08/17 10:50 Dose: 5 mg Ascorbic Acid (Vitamin C 500 Mg Tab) 500 mg PO DAILY [facility] Last Admin: 03/08/17 10:49 Dose: 500 mg Brimonidine Tartrate (Alphagan 0.2% Opht) 1 ml OU TID [facility] Last Admin: 03/08/17 10:52 Dose: 1 drop Collagenase (Santyl) 0 gm TOP DAILY [facility] Last Admin: 03/08/17 10:50 Dose: Not Given Dextrose (Dextrose 50% Inj) 0 ml IV STAT PRN; Protocol PRN Reason: Hyglycemia Protocol Dextrose (Glutose 15) 0 gm PO ONCE PRN; Protocol PRN Reason: Hypoglycemia Protocol Epoetin Maxwell (Procrit) 10,000 unit IV TTS [facility] Last Admin: 03/07/17 11:29 Dose: 10,000 unit Ergocalciferol (Drisdol 50,000 Intl Units Cap) 1 cap PO QWK [facility] Last Admin: 03/05/17 14:54 Dose: 1 cap Furosemide (Lasix) 40 mg PO DAILY [facility] Last Admin: 03/08/17 10:49 Dose: 40 mg Glucagon (Glucagen Diagnostic Kit) 0 mg IM STAT PRN; Protocol PRN Reason: Hypoglycemia Protocol Heparin Sodium (Porcine) (Heparin) 5,000 units SC Q8 [facility] Last Admin: 03/08/17 04:59 Dose: 5,000 units Heparin Sodium (Porcine) (Heparin) 3,700 units IVP TTS [facility] Stop: 03/24/17 23:59 Last Admin: 03/07/17 11:20 Dose: 3,700 units Hydralazine HCl (Apresoline) 25 mg PO BID [facility] Last Admin: 03/08/17 10:49 Dose: 25 mg Hydromorphone HCl (Dilaudid) 0.5 mg IVP Q6H PRN PRN Reason: Pain, severe (8-10) Last Admin: 03/08/17 10:50 Dose: 0.5 mg Tigecycline 50 mg/ Sodium (Chloride) 100 mls @ 100 mls/hr IVPB Q12H [facility] Last Admin: 03/08/17 08:33 Dose: 100 mls/hr Fluconazole (Diflucan Iv 200 Mg/100 Ml Ns) 100 mls @ 100 mls/hr IVPB DAILY [facility] Last Admin: 03/08/17 11:03 Dose: 100 mls/hr Sodium Chloride 35 meq/Potassium Chloride 30 meq/Magnesium Sulfate 6 meq/ Calcium Gluconate 4.5 meq/Heparin Sodium (Porcine) 1,000 units/ Amino Acids 1, 035.9052 mls @ 63 mls/hr IV .[id number] [facility] Stop: 03/08/17 18:00 Last Admin: 03/08/17 11:03 Dose: 63 mls/hr Sodium Chloride 35 meq/Potassium Chloride 30 meq/Magnesium Sulfate 6 meq/ Calcium Gluconate 4.5 meq/Heparin Sodium (Porcine) 1,000 units/ Amino Acids 1, 035.9052 mls @ 63 mls/hr IV .[id number] ONE Stop: 03/09/17 10:26 Sodium Chloride 35 meq/Potassium Chloride 30 meq/Magnesium Sulfate 6 meq/ Calcium Gluconate 4.5 meq/Heparin Sodium (Porcine) 1,000 units/ Amino Acids 1, 035.9052 mls @ 63 mls/hr IV .[id number] [facility] Stop: 03/09/17 17:59 Insulin Glargine (Lantus) 25 unit SC [facility] Last Admin: 03/07/17 21:03 Dose: 25 unit Insulin Human Regular (Novolin R) 0 unit SC [facility] PRN Reason: Protocol Last Admin: 03/08/17 08:33 Dose: 12 unit Latanoprost (Xalatan Opht) 0.02 ml OU HS [facility] Last Admin: 03/07/17 21:13 Dose: Not Given Losartan Potassium (Cozaar) 100 mg PO DAILY [facility] Last Admin: 03/08/17 10:49 Dose: 100 mg Pantoprazole Sodium (Protonix Inj) 40 mg IVP Q12H [facility] Last Admin: 03/08/17 04:26 Dose: 40 mg Rosuvastatin Calcium (Crestor) 10 mg PO HS [facility] Last Admin: 03/07/17 21:07 Dose: 10 mg Timolol Maleate (Timoptic 0.5% Ophth Soln) 1 drop OU BID [facility] Last Admin: 03/08/17 10:51 Dose: 1 drop Vitamin B Complex/Vit C/Folic Acid (Nephro-Alonzo) 1 tab PO 0800 [facility] Last Admin: 03/08/17 08:33 Dose: 1 tab - Labs Labs: 03/07/17 10:03 03/07/17 10:03 PT 12.3 SECONDS (9.7-12.2) H 02/18/17 05:30 INR 1.1 02/18/17 05:30 APTT 30 SECONDS (21-34) 02/18/17 05:30 Attending/Attestation - Attestation I have personally seen and examined this patient.: Yes I have fully participated in the care of the patient.: Yes I have reviewed all pertinent clinical information, including history, physical exam and plan: Yes Notes (Text): 03/08/17 11:46 Agree with resident note plan of care
[2017-02-20] MEDS: Thiamine 100 mg/ml Inj IV SCH ×2 (11:35→22:07)
[2017-02-20] MEDS: Vancomycin 125 MG/5 ML SOLN (ORAL/RECTAL) PO SCH ×3 (11:36→22:15)
--- NOTE | 2017-02-20 14:02 | CP.PCM.PN ---
Subjective - Date & Time of Evaluation Date of Evaluation: 02/20/17 Time of Evaluation: 08:00 - Subjective Subjective: AWAKE TODAT LESS DIARRHEA C/O PAIN LLE + NECROTIC WOUND FAMILY REFUSING AMP Objective - Vital Signs/Intake and Output Vital Signs (last 24 hours): Temp Pulse Resp BP Pulse Ox 98.4 F 90 18 152/64 H 97 02/20/17 08:25 02/20/17 08:25 02/20/17 08:25 02/20/17 11:35 02/20/17 08:25 Intake and Output: 02/20/17 02/20/17 06:59 18:59 Intake Total 390 Balance 390 - Medications Medications: Current Medications Amlodipine Besylate (Norvasc) 5 mg PO DAILY [facility] Last Admin: 02/20/17 11:34 Dose: 5 mg Bumetanide (Bumex) 1 mg PO [facility] [place] Epoetin Maxwell (Procrit) 10,000 unit IV TTS [facility] Stop: 03/03/17 10:01 Last Admin: 02/19/17 17:22 Dose: 10,000 unit Ferric Sodium Gluconate Complex (Ferrlecit) 125 mg IVPB TTS [facility] Stop: 02/24/17 10:01 Last Admin: 02/19/17 17:23 Dose: 125 mg Furosemide (Lasix) 40 mg PO DAILY [facility] Last Admin: 02/20/17 11:35 Dose: 40 mg Cefepime HCl 1 gm/ Dextrose 50 mls @ 100 mls/hr IVPB Q24H [facility] Last Admin: 02/19/17 19:47 Dose: 100 mls/hr Vancomycin HCl 1,000 mg/ (Sodium Chloride) 250 mls @ 166.6 mls/hr IVPB MWF [facility] Last Admin: 02/20/17 08:50 Dose: 166.6 mls/hr Metronidazole (Flagyl) 500 mg in 100 mls @ 100 mls/hr IVPB Q8 [facility] Last Admin: 02/20/17 06:23 Dose: 100 mls/hr Insulin Glargine (Lantus) 30 unit SC HS [facility] Last Admin: 02/20/17 01:10 Dose: 30 units Insulin Human Regular (Novolin R) 0 unit SC [facility]S [facility] PRN Reason: Protocol Last Admin: 02/20/17 13:01 Dose: 4 unit Losartan Potassium (Cozaar) 100 mg PO DAILY [facility] Last Admin: 02/20/17 11:34 Dose: 100 mg Pneumococcal Polyvalent Vaccine (Pneumovax 23 Vaccine) 0.5 ml IM .ONCE ONE Stop: 02/21/17 14:01 Rosuvastatin Calcium (Crestor) 10 mg PO HS [facility] Last Admin: 02/19/17 22:25 Dose: Not Given Thiamine HCl (Vitamin B1 Inj) 100 mg IV Q12H [facility] Last Admin: 02/20/17 11:35 Dose: 100 mg Vancomycin HCl (Vancocin (Oral Or Rectal Use)) 125 mg PO QID [facility] Last Admin: 02/20/17 11:36 Dose: Not Given - Labs Labs: 02/20/17 07:37 02/20/17 07:37 PT 12.3 SECONDS (9.7-12.2) H 02/18/17 05:30 INR 1.1 02/18/17 05:30 APTT 30 SECONDS (21-34) 02/18/17 05:30 - Constitutional Appears: Non-toxic, Cachectic, Chronically Ill - Head Exam Head Exam: ATRAUMATIC, NORMAL INSPECTION, NORMOCEPHALIC - Eye Exam Eye Exam: PERRL. absent: Scleral icterus - ENT Exam ENT Exam: Normal External Ear Exam - Neck Exam Neck Exam: absent: Lymphadenopathy - Respiratory Exam Respiratory Exam: Decreased Breath Sounds, Rhonchi - Cardiovascular Exam Cardiovascular Exam: REGULAR RHYTHM, +S1, +S2 - GI/Abdominal Exam GI & Abdominal Exam: Distended, Soft - Rectal Exam Rectal Exam: Deferred - Exam Exam: NORMAL INSPECTION - Extremities Exam Extremities Exam: Pedal Edema, Tenderness. absent: Calf Tenderness - Back Exam Back Exam: absent: CVA tenderness (L), CVA tenderness (R) - Neurological Exam Neurological Exam: Alert, Awake - Psychiatric Exam Psychiatric exam: Depressed - Skin Skin Exam: Dry Assessment and Plan (1) Change in mental status Status: Acute (2) End stage renal disease on dialysis Status: Acute (3) Heel ulcer Status: Acute (4) IDDM (insulin dependent diabetes mellitus) Status: Chronic - Assessment and Plan (Free Text) Assessment: CONT IV AND PO RX FOR C DIFF FAMILY REFUSES AMP WANT SECOND OPINION WILL LIKELY NEED LEFT BKA
[2017-02-20] MEDS ORDERED: Iodixanol 320 mg/ml 150 ml Bottle IV ONE (16:14)
--- NOTE | 2017-02-20 19:13 | CT ---
PROCEDURE: CT Angiography Abdomen, Pelvis and Lower Extremity with Contrast HISTORY: gangrene left foot COMPARISON: None. TECHNIQUE: Technique: CT angiography of the abdomen, pelvis and bilateral lower extremities performed in the arterial phase of enhancement. Coronal and sagittal reformats, and well as rotating MIP images of the vessels generated at the workstation. Intravenous contrast dose: Visipaque 320, 150 cc pre Radiation dose: Total exam DLP = 1378.67 mGy-cm. This CT exam was performed using one or more of the following dose reduction techniques: Automated exposure control, adjustment of the mA and/or kV according to patient size, and/or use of iterative reconstruction technique. FINDINGS: CT ANGIOGRAPHY: ABDOMINAL AORTA:: MAJOR AORTIC BRANCHES: Celiac [place]: Unremarkable. Superior mesenteric artery: Unremarkable. Inferior mesenteric artery: Unremarkable. Renal arteries: Unremarkable. PELVIC ARTERIES: Right Common Iliac: Unremarkable. Right External Iliac: Unremarkable. Right Internal Iliac: Multifocal moderate to severe segmental stenoses. Left Common Iliac: Unremarkable. Left External Iliac: Unremarkable. Left Internal Iliac: Hdci-[id number]-zplxlbkf segmental stenoses are multifocal. RIGHT LOWER EXTREMITY ARTERIES: Right Common Femoral: Unremarkable. Right Superficial Femoral: Multifocal moderate distal stenoses though the artery appears to stay patent throughout. Right Profunda Femoris: Patent Right Popliteal:Jklr-gj-hcxecxzd disease is appreciated with the vessel pharynx patent from origin to termination. Right Anterior Tibial: Appears severely diseased at the mid and distal segments but is likely patent to the ankle. Right Tibioperoneal Trunk: Severely diseased throughout. Multi focal occlusions are suggested with collateral limited reconstitutions. Right Posterior Tibial: Severely diseased including proximal well to the ankle. Right Peroneal: Severely disease including well proximal to the ankle. Right dorsalis pedis : Patent. LEFT LOWER EXTREMITY ARTERIES: Left Common Femoral: Unremarkable. Left Superficial Femoral: Multifocal distal xzxc-lp-aknmbamf stenoses identified with the artery appearing patent throughout nevertheless. Left Profunda Femoris: Patent. Left Popliteal: Patent but with multifocal high-grade proximal and mid segmental stenoses. Left Anterior Tibial: Severely diseased with multifocal occluded and reconstituted segments, primarily at the proximal and mid levels. Distal segment appears less affected than proximal and mid segments. Left Tibioperoneal Trunk: Severely diseased with multiple occluded and reconstituted segments. Left Posterior Tibial: Severely diseased with various occluded segments. The vessel does not appear to be patent to the ankle Left Peroneal: Severely diseased with various occluded segments. The vessel does not appear to be patent to the ankle. Left Dorsalis pedis: Patent. NON-ANGIOGRAPHIC ASPECT OF THE EXAM: LOWER THORAX: Mild right and moderate left pleural effusions are identified with a moderate pericardial effusion also noted. LIVER: Unremarkable. No gross lesion or ductal dilatation. GALLBLADDER AND BILE DUCTS: Unremarkable. PANCREAS: An atrophic nonfocal pancreas is identified. SPLEEN: Unremarkable. ADRENALS: Unremarkable. No mass. KIDNEYS AND URETERS: Unremarkable. No hydronephrosis. No solid mass. STOMACH AND BOWEL: Stomach is collapsed. No bowel obstruction is evident. Mural thickening of the sigmoid colon is questioned diffusely the although there are few diverticula, etiology may be separate from diverticulitis. Clinically correlate. Similar changes seen at the ascending colon at its proximal to mid segments. No ascites or abscess. APPENDIX: Not identified. PERITONEUM: Unremarkable. No free fluid. No free air. LYMPH NODES: Unremarkable. No enlarged lymph nodes. BLADDER: Unremarkable. REPRODUCTIVE: Prior hysterectomy. BONES: No acute fracture. OTHER FINDINGS: None. IMPRESSION: Severe bilateral lower extremity arterial runoff with 1 vessel likely remaining patent at the right. None is continuously patent at the left lower extremity [id number]. Please see discussion above. Widely patent abdominal aorta and iliac arterial system with moderate right and urcq-[id number] left femoral arterial disease. Severe bilateral popliteal artery arterial disease. Additional findings as discussed above.
--- NOTE | 2017-02-20 19:33 | CP.PCM.PN ---
Subjective - Date & Time of Evaluation Date of Evaluation: 02/20/17 Time of Evaluation: 15:00 - Subjective Subjective: SEEN ON RENAL F/U ON HD T T S ABOVE NOTES ALL READ Objective - Vital Signs/Intake and Output Vital Signs (last 24 hours): Temp Pulse Resp BP Pulse Ox 99.1 F 88 20 154/76 H 96 02/20/17 16:00 02/20/17 16:00 02/20/17 16:00 02/20/17 16:00 02/20/17 16:00 - Medications Medications: Current Medications Amlodipine Besylate (Norvasc) 5 mg PO DAILY [facility] Last Admin: 02/20/17 11:34 Dose: 5 mg Brimonidine Tartrate (Alphagan 0.2% Opht) 1 ml OU TID [facility] Bumetanide (Bumex) 1 mg PO MWF [facility] Epoetin Maxwell (Procrit) 10,000 unit IV TTS [facility] Stop: 03/03/17 10:01 Last Admin: 02/19/17 17:22 Dose: 10,000 unit Ferric Sodium Gluconate Complex (Ferrlecit) 125 mg IVPB TTS [facility] Stop: 02/24/17 10:01 Last Admin: 02/19/17 17:23 Dose: 125 mg Furosemide (Lasix) 40 mg PO DAILY [facility] Last Admin: 02/20/17 11:35 Dose: 40 mg Cefepime HCl 1 gm/ Dextrose 50 mls @ 100 mls/hr IVPB Q24H [facility] Last Admin: 02/20/17 18:29 Dose: 100 mls/hr Vancomycin HCl 1,000 mg/ (Sodium Chloride) 250 mls @ 166.6 mls/hr IVPB MWF [facility] Last Admin: 02/20/17 08:50 Dose: 166.6 mls/hr Metronidazole (Flagyl) 500 mg in 100 mls @ 100 mls/hr IVPB Q8 [facility] Last Admin: 02/20/17 14:37 Dose: 100 mls/hr Insulin Glargine (Lantus) 30 unit SC HS [facility] Last Admin: 02/20/17 01:10 Dose: 30 units Insulin Human Regular (Novolin R) 0 unit SC ACHS [facility] PRN Reason: Protocol Last Admin: 02/20/17 18:29 Dose: 4 unit Latanoprost (Xalatan Opht) 0.02 ml OU HS [facility] Losartan Potassium (Cozaar) 100 mg PO DAILY [facility] Last Admin: 02/20/17 11:34 Dose: 100 mg Morphine Sulfate (Morphine) 2 mg IVP Q6 PRN PRN Reason: Pain, severe (8-10) Last Admin: 02/20/17 15:34 Dose: 2 mg Pneumococcal Polyvalent Vaccine (Pneumovax 23 Vaccine) 0.5 ml IM .ONCE ONE Stop: 02/21/17 14:01 Rosuvastatin Calcium (Crestor) 10 mg PO HS [facility] Last Admin: 02/19/17 22:25 Dose: Not Given Thiamine HCl (Vitamin B1 Inj) 100 mg IV Q12H [facility] Last Admin: 02/20/17 11:35 Dose: 100 mg Timolol Maleate (Timoptic 0.5% Oph Soln) 1 drop OU BID [facility] Tramadol HCl (Ultram) 50 mg PO TID PRN PRN Reason: Pain, moderate (4-7) Vancomycin HCl (Vancocin (Oral Or Rectal Use)) 125 mg PO QID [facility] Last Admin: 02/20/17 11:36 Dose: Not Given - Labs Labs: 02/20/17 07:37 02/20/17 07:37 PT 12.3 SECONDS (9.7-12.2) H 02/18/17 05:30 INR 1.1 02/18/17 05:30 APTT 30 SECONDS (21-34) 02/18/17 05:30 Assessment and Plan - Assessment and Plan (Free Text) Assessment: ESRD ON HD T T S .. TO BE C/O ANEMIA OF CKD .. ON EPO AND FERRLICIT CHANGE IN MENTAL STATUS .. W/U IN PROGRESS C/O CURRENT CARE
[2017-02-20] MEDS: Brimonidine 0.2% Opth Sol (5ml) OU SCH (20:14)
[2017-02-20] MEDS: Latanoprost 2.5 ml Opht Soln OU SCH ×2 (22:14→22:17)
[2017-02-21] MEDS: metroNIDAZOLE IV 500 mg/100 ml 500 MG/100 ML BAG IVPB SCH ×3 (05:11→22:00)
--- NOTE | 2017-02-21 08:11 | CP.PCM.PN ---
<Piyush Segura - Last Filed: 02/21/17 09:25> Subjective - Date & Time of Evaluation Date of Evaluation: 02/21/17 Time of Evaluation: 06:40 - Subjective Subjective: PGY-[address] Myrick Patient seen and examined at bedside. Patient appears very tired and sleepy. Per nursing staff, patient was agitated intermittently at night, thus not getting much sleep and is now tired. Patient is still unable to properly communicate with intelligible words. Objective - Vital Signs/Intake and Output Vital Signs (last 24 hours): Temp Pulse Resp BP Pulse Ox 98.2 F 85 20 163/72 H 97 02/20/17 23:10 02/20/17 23:10 02/20/17 23:10 02/20/17 23:10 02/20/17 23:10 Intake and Output: 02/21/17 02/21/17 06:59 18:59 Intake Total 200 Balance 200 - Medications Medications: Current Medications Amlodipine Besylate (Norvasc) 5 mg PO DAILY [facility] Last Admin: 02/20/17 11:34 Dose: 5 mg Brimonidine Tartrate (Alphagan 0.2% Opht) 1 ml OU TID [facility] Last Admin: 02/20/17 20:14 Dose: 1 drop Bumetanide (Bumex) 1 mg PO [facility] [place] Epoetin Maxwell (Procrit) 10,000 unit IV TTS [facility] Stop: 03/03/17 10:01 Last Admin: 02/19/17 17:22 Dose: 10,000 unit Ferric Sodium Gluconate Complex (Ferrlecit) 125 mg IVPB TTS [facility] Stop: 02/24/17 10:01 Last Admin: 02/19/17 17:23 Dose: 125 mg Furosemide (Lasix) 40 mg PO DAILY [facility] Last Admin: 02/20/17 11:35 Dose: 40 mg Cefepime HCl 1 gm/ Dextrose 50 mls @ 100 mls/hr IVPB Q24H [facility] Last Admin: 02/20/17 18:29 Dose: 100 mls/hr Vancomycin HCl 1,000 mg/ (Sodium Chloride) 250 mls @ 166.6 mls/hr IVPB MWF [facility] Last Admin: 02/20/17 08:50 Dose: 166.6 mls/hr Metronidazole (Flagyl) 500 mg in 100 mls @ 100 mls/hr IVPB Q8 [facility] Last Admin: 02/21/17 05:11 Dose: 100 mls/hr Insulin Glargine (Lantus) 30 unit SC [facility] Last Admin: 02/20/17 22:15 Dose: Not Given Insulin Human Regular (Novolin R) 0 unit SC ACHS [facility] PRN Reason: Protocol Last Admin: 02/20/17 22:07 Dose: Not Given Ketorolac Tromethamine (Toradol) 30 mg IVP Q6 PRN PRN Reason: Pain, moderate (4-7) Latanoprost (Xalatan Opht) 0.02 ml OU HS [facility] Last Admin: 02/20/17 22:17 Dose: Not Given Losartan Potassium (Cozaar) 100 mg PO DAILY [facility] Last Admin: 02/20/17 11:34 Dose: 100 mg Pneumococcal Polyvalent Vaccine (Pneumovax 23 Vaccine) 0.5 ml IM .ONCE ONE Stop: 02/21/17 14:01 Rosuvastatin Calcium (Crestor) 10 mg PO [facility] Last Admin: 02/20/17 22:15 Dose: Not Given Thiamine HCl (Vitamin B1 Inj) 100 mg IV Q12H [facility] Last Admin: 02/20/17 22:07 Dose: 100 mg [facility]ol [facility] 1 drop OU BID [facility] Last Admin: 02/20/17 20:15 Dose: 1 drop Vancomycin HCl (Vancocin (Oral Or Rectal Use)) 125 mg PO QID [facility] Last Admin: 02/20/17 22:15 Dose: Not Given - Labs Labs: 02/20/17 07:37 02/20/17 07:37 PT 12.3 SECONDS (9.7-12.2) H 02/18/17 05:30 INR 1.1 02/18/17 05:30 APTT 30 SECONDS (21-34) 02/18/17 05:30 - Constitutional Appears: No Acute Distress, Chronically Ill - Head Exam Head Exam: ATRAUMATIC, NORMOCEPHALIC - Eye Exam Eye Exam: EOMI, Normal appearance - ENT Exam ENT Exam: Mucous Membranes Moist - Respiratory Exam Respiratory Exam: Clear to Ausculation Bilateral. absent: Rales, Rhonchi, Wheezes - Cardiovascular Exam Cardiovascular Exam: REGULAR RHYTHM, +S1, +S2 - GI/Abdominal Exam GI & Abdominal Exam: Soft, Normal Bowel Sounds. absent: Tenderness - Extremities Exam Extremities Exam: Pedal Edema (bilaterally) Additional comments: Chronic venous stasis changes bilaterally in the legs Left foot ulcer with 10x5 cm eschar spanning lateral plantar surface - Neurological Exam Neurological Exam: Altered, Awake Additional comments: Moving all 4 extremities. - Skin Skin Exam: Dry, Pallor Assessment and Plan - Assessment and Plan (Free Text) Plan: Disposition: PATIENT IS TO BE TRANSFERRED TO [facility] for hyperbaric oxygen therapy for left foot necrotic ulcer. Patient will be admitted under Dr. Kris Levin's service. Patient is to be transferred once insurance approved and bed is available for patient. Non-Healing Left Heel Ulcer Podiatry consult - Dr. Avery, help appreciated Infectious Disease Dr. Wellington consulted, help appreciated. Dr. Broussard on board, help appreciated. Low ext arterial duplex (02/04/17): R- occlusion R post tib artery, 50-75% stenosis right mid popliteal & proximal anterior tib arteries L- occlusion of left post tib artery, >75% stenosis left proximal ant tibial artery, 50-75% stenosis left distal SFA & proximal popliteal a. Vancomycin 1000 mg IV MWF [facility] Cefepime 1 gm IV Q24H Abdominal Angiography 02/19/17: Severe bilateral lower extremity arterial runoff with 1 vessel likely remaining patent at the right. None is continuously patent at the left lower extremity [id number]. Please see discussion above. Widely patent abdominal aorta and iliac arterial system with moderate right and [id number] left femoral arterial disease. Severe bilateral popliteal artery arterial disease. Dr. Avery recommended Left BKA given his physical exam findings. Dr. Broussard also recommends the left BKA. He stated that even if the gangrenous portion is removed, it will not heal regardless of revascularization. Altered Mental Status CT Head negative for Acute Territorial Infarction Patient found hypoglycemic by both and EMS with symptoms that suggest seizure episode. Patient is a poorly controlled diabetic. Monitor Accuchecks qACHS and Q4H Patient likely had an episode of neuroglycopenia and currently in post-ictal state. Due to post-ictal state, decision made to avoid narcotic pain medications. NPO for now since patient failed multiple bedside swallow evaluation. CENTRAL OFFICE REPAIRER saw her on date of admission but patient was too lethargic for proper evaluation. CENTRAL OFFICE REPAIRER performed successful bedside swallow eval and recommended Pureed diet with thin liquids. Home PO meds restarted. Neurology consult Dr. Tanisha Aguirre, help appreciated. Thiamine 100 mg Q8H F/u MRI brain C. Diff C.Diff studies positive Patient on isolation contact precaution Vancomycin 125 mg PO QID started Dr. Wellington added Flagyl 500 mg IV Q8H History of End Stage Renal Disease On HD T,,S Dr. Ambrose nephrology consult. Leukocytosis Currently downtrending Patient given steroids on prior admission. Per chart review, patient received dose of solumedrol 40 mg IV on 02/13 and 02/14 ABG lactate 0.7 Procalcitonin 1.43 Will continue to trend for now History of hypertension Lopressor 5 mg IV one time dose given. For now, we are wary of using IV antihypertensive medications because the patient is in a fragile state. We requested but were unable to attain ICU monitoring. PO Home medications resumed * Norvasc 5 mg PO daily * Losartan 100 mg PO daily * Furosemide 40 mg PO daily * Held Bumex for now Anemia of Chronic Disease H/H 11.4/37 on admission Likely secondary to ESRD Hemoglobin dropped from 11.[address] Ambrose put for IV ferlicet 125 mg and Procrit 10,000 units IV Diabetes Accuchecks qACHS and Q4H for now RISS Restarted Home Lantus 30 units SC HS Prophylactic Measures SCDs for now Decision made to avoid anticoagulation for now due to concern of possible evolving brain bleed or CT occult bleed 1:1 observation due to agitation. Patient tries to get out of bed. Fall precautions Will discuss case with Dr. Ramez Segura PGY-1 <Benson Myrick Jr. - Last Filed: 03/08/17 11:48> Objective - Vital Signs/Intake and Output Vital Signs (last 24 hours): Temp Pulse Resp BP Pulse Ox 97.9 F 76 20 166/69 H 98 03/08/17 08:12 03/08/17 08:12 03/08/17 08:12 03/08/17 10:49 03/08/17 08:12 Intake and Output: 03/08/17 03/08/17 06:59 18:59 Intake Total 770 Balance 770 - Medications Medications: Current Medications Acetaminophen (Tylenol 325mg Tab) 650 mg PO Q6 PRN PRN Reason: Pain, Mild (1-3) Last Admin: 03/07/17 18:20 Dose: 650 mg Amlodipine Besylate (Norvasc) 5 mg PO DAILY [facility] Last Admin: 03/08/17 10:50 Dose: 5 mg Ascorbic Acid (Vitamin C 500 Mg Tab) 500 mg PO DAILY [facility] Last Admin: 03/08/17 10:49 Dose: 500 mg Brimonidine Tartrate (Alphagan 0.2% Opht) 1 ml OU TID [facility] Last Admin: 03/08/17 10:52 Dose: 1 drop Collagenase (Santyl) 0 gm TOP DAILY [facility] Last Admin: 03/08/17 10:50 Dose: Not Given Dextrose (Dextrose 50% Inj) 0 ml IV STAT PRN; Protocol PRN Reason: Hyglycemia Protocol Dextrose (Glutose 15) 0 gm PO ONCE PRN; Protocol PRN Reason: Hypoglycemia Protocol Epoetin Maxwell (Procrit) 10,000 unit IV TTS [facility] Last Admin: 03/07/17 11:29 Dose: 10,000 unit Ergocalciferol (Drisdol 50,000 Intl Units Cap) 1 cap PO QWK [facility] Last Admin: 03/05/17 14:54 Dose: 1 cap Furosemide (Lasix) 40 mg PO DAILY [facility] Last Admin: 03/08/17 10:49 Dose: 40 mg Glucagon (Glucagen Diagnostic Kit) 0 mg IM STAT PRN; Protocol PRN Reason: Hypoglycemia Protocol Heparin Sodium (Porcine) (Heparin) 5,000 units SC Q8 [facility] Last Admin: 03/08/17 04:59 Dose: 5,000 units Heparin Sodium (Porcine) (Heparin) 3,700 units IVP TTS [facility] Stop: 03/24/17 23:59 Last Admin: 03/07/17 11:20 Dose: 3,700 units Hydralazine HCl (Apresoline) 25 mg PO BID [facility] Last Admin: 03/08/17 10:49 Dose: 25 mg Hydromorphone HCl (Dilaudid) 0.5 mg IVP Q6H PRN PRN Reason: Pain, severe (8-10) Last Admin: 03/08/17 10:50 Dose: 0.5 mg Tigecycline 50 mg/ Sodium (Chloride) 100 mls @ 100 mls/hr IVPB Q12H [facility] Last Admin: 03/08/17 08:33 Dose: 100 mls/hr Fluconazole (Diflucan Iv 200 Mg/100 Ml Ns) 100 mls @ 100 mls/hr IVPB DAILY [facility] Last Admin: 03/08/17 11:03 Dose: 100 mls/hr Sodium Chloride 35 meq/Potassium Chloride 30 meq/Magnesium Sulfate 6 meq/ Calcium Gluconate 4.5 meq/Heparin Sodium (Porcine) 1,000 units/ Amino Acids 1, 035.9052 mls @ 63 mls/hr IV .[id number] [facility] Stop: 03/08/17 18:00 Last Admin: 03/08/17 11:03 Dose: 63 mls/hr Sodium Chloride 35 meq/Potassium Chloride 30 meq/Magnesium Sulfate 6 meq/ Calcium Gluconate 4.5 meq/Heparin Sodium (Porcine) 1,000 units/ Amino Acids 1, 035.9052 mls @ 63 mls/hr IV .[id number] ONE Stop: 03/09/17 10:26 Sodium Chloride 35 meq/Potassium Chloride 30 meq/Magnesium Sulfate 6 meq/ Calcium Gluconate 4.5 meq/Heparin Sodium (Porcine) 1,000 units/ Amino Acids 1, 035.9052 mls @ 63 mls/hr IV .[id number] [facility] Stop: 03/09/17 17:59 Insulin Glargine (Lantus) 25 unit SC HS [facility] Last Admin: 03/07/17 21:03 Dose: 25 unit Insulin Human Regular (Novolin R) 0 unit SC ACHS [facility] PRN Reason: Protocol Last Admin: 03/08/17 08:33 Dose: 12 unit Latanoprost (Xalatan Opht) 0.02 ml OU HS [facility] Last Admin: 03/07/17 21:13 Dose: Not Given Losartan Potassium (Cozaar) 100 mg PO DAILY [facility] Last Admin: 03/08/17 10:49 Dose: 100 mg Pantoprazole Sodium (Protonix Inj) 40 mg IVP Q12H [facility] Last Admin: 03/08/17 04:26 Dose: 40 mg Rosuvastatin Calcium (Crestor) 10 mg PO HS [facility] Last Admin: 03/07/17 21:07 Dose: 10 mg Timolol Maleate (Timoptic 0.5% Oph Soln) 1 drop OU BID [facility] Last Admin: 03/08/17 10:51 Dose: 1 drop Vitamin B Complex/Vit C/Folic Acid (Nephro-Alonzo) 1 tab PO 0800 [facility] Last Admin: 03/08/17 08:33 Dose: 1 tab - Labs Labs: 03/07/17 10:03 03/07/17 10:03 PT 12.3 SECONDS (9.7-12.2) H 02/18/17 05:30 INR 1.1 02/18/17 05:30 APTT 30 SECONDS (21-34) 02/18/17 05:30 Attending/Attestation - Attestation I have personally seen and examined this patient.: Yes I have fully participated in the care of the patient.: Yes I have reviewed all pertinent clinical information, including history, physical exam and plan: Yes Notes (Text): 03/08/17 11:48 Agree with resident note and plan of care
[2017-02-21] MEDS: (Novolin R) Insulin Human Regular 100 units/ml vial SC SCH ×4 (08:30→22:00)
[2017-02-21 08:41] LABS: BASO # 0.1 K/uL (0.0-0.2); BASO % 0.3 % (0.0-2.0); EOS # 0.3 K/uL (0.0-0.7); EOS % 1.3 % (0.0-4.0); HEMATOCRIT 29.5 % (34.0-47.0); LYMPH # 0.9 K/uL (1.0-4.3); LYMPH % 4.2 % (20.0-40.0); MEAN CELL VOLUME 88.8 fL (81.0-99.0); MEAN CORPUSCULAR HEMOGLOBIN 28.3 pg (27.0-31.0); MEAN CORPUSCULAR HGB CONC 31.9 g/dL (33.0-37.0); MEAN PLATELET VOLUME 9.1 fL (7.2-11.7); MONO # 2.1 K/uL (0.0-0.8); MONO % 9.6 % (0.0-10.0); NRBC % 0.1 % (0.0-2.0); PLATELET COUNT 319 K/uL (130-400); RED CELL DISTRIBUTION WIDTH 17.7 % (11.5-14.5); WHITE BLOOD COUNT 22.3 K/uL (4.8-10.8)
[2017-02-21 08:43] LABS: POTASSIUM 3.5 mmol/L (3.6-5.2)
[2017-02-21 08:45] LABS: BILIRUBIN,TOTAL 0.6 mg/dL (0.2-1.3)
[2017-02-21 08:46] LABS: CALCIUM 8.5 mg/dl (8.6-10.4); MAGNESIUM 1.9 mg/dL (1.6-2.3)
[2017-02-21] MEDS: Brimonidine 0.2% Opth Sol (5ml) OU SCH ×3 (10:15→18:05)
[2017-02-21 10:26] LABS: EOSINOPHIL 1 % (0-4); NEUTROPHIL 78 % (50-75); TOTAL CELLS COUNTED 100
[2017-02-21 10:28] LABS: LARGE PLATELETS PRESENT
[2017-02-21] MEDS: Ferric Sodium Gluconat Complex 62.5 mg/5 ml Vial IVPB SCH (11:14)
[2017-02-21] MEDS: Epoetin Alfa 10,000 unit/ml Dialysis IV SCH (11:15)
--- NOTE | 2017-02-21 11:24 | CP.PCM.PN ---
Subjective - Date & Time of Evaluation Date of Evaluation: 02/21/17 Time of Evaluation: 11:23 - Subjective Subjective: see dictation detailed discussion with re options Objective - Vital Signs/Intake and Output Vital Signs (last 24 hours): Temp Pulse Resp BP Pulse Ox 98.2 F 100 H 20 179/53 H 95 02/21/17 09:18 02/21/17 09:18 02/21/17 09:18 02/21/17 09:18 02/21/17 09:18 Intake and Output: 02/21/17 02/21/17 06:59 18:59 Intake Total 200 Balance 200 - Medications Medications: Current Medications Amlodipine Besylate (Norvasc) 5 mg PO DAILY [facility] Last Admin: 02/20/17 11:34 Dose: 5 mg Brimonidine Tartrate (Alphagan 0.2% Opht) 1 ml OU TID [facility] Last Admin: 02/20/17 20:14 Dose: 1 drop Bumetanide (Bumex) 1 mg PO [facility] [place]po[place] Maxwell (Procrit) 10,000 unit IV TTS [facility] Stop: 03/03/17 10:01 Last Admin: 02/21/17 11:15 Dose: 10,000 unit Ferric Sodium Gluconate Complex (Ferrlecit) 125 mg IVPB TTS [facility] Stop: 02/24/17 10:01 Last Admin: 02/21/17 11:14 Dose: 125 mg Furosemide (Lasix) 40 mg PO DAILY [facility] Last Admin: 02/20/17 11:35 Dose: 40 mg Cefepime HCl 1 gm/ Dextrose 50 mls @ 100 mls/hr IVPB Q24H [facility] Last Admin: 02/20/17 18:29 Dose: 100 mls/hr Vancomycin HCl 1,000 mg/ (Sodium Chloride) 250 mls @ 166.6 mls/hr IVPB MWF [facility] Last Admin: 02/20/17 08:50 Dose: 166.6 mls/hr Metronidazole (Flagyl) 500 mg in 100 mls @ 100 mls/hr IVPB Q8 [facility] Last Admin: 02/21/17 05:11 Dose: 100 mls/hr Insulin Glargine (Lantus) 30 unit SC HS [facility] Last Admin: 02/20/17 22:15 Dose: Not Given Insulin Human Regular (Novolin R) 0 unit SC ACHS [facility] PRN Reason: Protocol Last Admin: 02/21/17 08:30 Dose: 2 unit Ketorolac Tromethamine (Toradol) 30 mg IVP Q6 PRN PRN Reason: Pain, moderate (4-7) Latanoprost (Xalatan Opht) 0.02 ml OU HS [facility] Last Admin: 02/20/17 22:17 Dose: Not Given Losartan Potassium (Cozaar) 100 mg PO DAILY [facility] Last Admin: 02/20/17 11:34 Dose: 100 mg Pneumococcal Polyvalent Vaccine (Pneumovax 23 Vaccine) 0.5 ml IM .ONCE ONE Stop: 02/21/17 14:01 Rosuvastatin Calcium (Crestor) 10 mg PO HS [facility] Last Admin: 02/20/17 22:15 Dose: Not Given Thiamine HCl (Vitamin B1 Inj) 100 mg IV Q8H [facility] Timolol Maleate (Timoptic 0.5% Oph Soln) 1 drop OU BID [facility] Last Admin: 02/20/17 20:15 Dose: 1 drop Vancomycin HCl (Vancocin (Oral Or Rectal Use)) 125 mg PO QID [facility] Last Admin: 02/20/17 22:15 Dose: Not Given - Labs Labs: 02/21/17 08:05 02/21/17 08:05 PT 12.3 SECONDS (9.7-12.2) H 02/18/17 05:30 INR 1.1 02/18/17 05:30 APTT 30 SECONDS (21-34) 02/18/17 05:30
[2017-02-21] MEDS ORDERED: Tramadol 25 mg PO PRN (11:29)
[2017-02-21] MEDS: Vancomycin 125 MG/5 ML SOLN (ORAL/RECTAL) PO SCH ×4 (11:33→22:04)
[2017-02-21] MEDS: Thiamine 100 mg/ml Inj IV SCH ×2 (11:33→18:04)
[2017-02-21] MEDS ORDERED: Pneumococcal 23-Valent Vaccine IM ONE (14:00)
--- NOTE | 2017-02-21 14:02 | CP.PCM.PN ---
Subjective - Date & Time of Evaluation Date of Evaluation: 02/21/17 Time of Evaluation: 13:59 - Subjective Subjective: on hd tts hd completed vss discussed w family at bedside still aphasic eval in progress notes reviewed. cont rx and support. Objective - Vital Signs/Intake and Output Vital Signs (last 24 hours): Temp Pulse Resp BP Pulse Ox 98.9 F 84 16 170/58 H 95 02/21/17 10:35 02/21/17 13:30 02/21/17 10:35 02/21/17 13:30 02/21/17 09:18 Intake and Output: 02/21/17 02/21/17 06:59 18:59 Intake Total 200 Balance 200 - Medications Medications: Current Medications Amlodipine Besylate (Norvasc) 5 mg PO DAILY [facility] Last Admin: 02/21/17 11:32 Dose: Not Given Brimonidine Tartrate (Alphagan 0.2% Opht) 1 ml OU TID [facility] Last Admin: 02/21/17 10:15 Dose: Not Given Bumetanide (Bumex) 1 mg PO [facility] Epoetin Maxwell (Procrit) 10,000 unit IV TTS [facility] Stop: 03/03/17 10:01 Last Admin: 02/21/17 11:15 Dose: 10,000 unit Ferric Sodium Gluconate Complex (Ferrlecit) 125 mg IVPB TTS [facility] Stop: 02/24/17 10:01 Last Admin: 02/21/17 11:14 Dose: 125 mg Furosemide (Lasix) 40 mg PO DAILY [facility] Last Admin: 02/21/17 11:32 Dose: Not Given Heparin Sodium (Porcine) (Heparin) 3,700 units IVP TTS [facility] Last Admin: 02/21/17 13:37 Dose: 3,700 units Hydralazine HCl (Apresoline) 25 mg PO BID [facility] Cefepime HCl 1 gm/ Dextrose 50 mls @ 100 mls/hr IVPB Q24H [facility] Last Admin: 02/20/17 18:29 Dose: 100 mls/hr Vancomycin HCl 1,000 mg/ (Sodium Chloride) 250 mls @ 166.6 mls/hr IVPB MWF [facility] Last Admin: 02/20/17 08:50 Dose: 166.6 mls/hr Metronidazole (Flagyl) 500 mg in 100 mls @ 100 mls/hr IVPB Q8 [facility] Last Admin: 02/21/17 05:11 Dose: 100 mls/hr Insulin Glargine (Lantus) 30 unit SC [facility] Last Admin: 02/20/17 22:15 Dose: Not Given Insulin Human Regular (Novolin R) 0 unit SC [facility] ELINA PRN Reason: Protocol Last Admin: 02/21/17 08:30 Dose: 2 unit Ketorolac Tromethamine (Toradol) 30 mg IVP Q6 PRN PRN Reason: Pain, moderate (4-7) Latanoprost (Xalatan Opht) 0.02 ml OU HS [facility] Last Admin: 02/20/17 22:17 Dose: Not Given Losartan Potassium (Cozaar) 100 mg PO DAILY [facility] Last Admin: 02/21/17 11:31 Dose: Not Given Pneumococcal Polyvalent Vaccine (Pneumovax 23 Vaccine) 0.5 ml IM .ONCE ONE Stop: 02/21/17 14:01 Rosuvastatin Calcium (Crestor) 10 mg PO [facility] Last Admin: 02/20/17 22:15 Dose: Not Given Thiamine HCl (Vitamin B1 Inj) 100 mg IV Q8H [facility] Last Admin: 02/21/17 11:33 Dose: Not Given Timolol Maleate (Timoptic 0.5% Ophth Soln) 1 drop OU BID [facility] Last Admin: 02/21/17 11:32 Dose: Not Given Tramadol HCl (Ultram) 25 mg PO TID PRN PRN Reason: Pain, severe (8-10) Vancomycin HCl (Vancocin (Oral Or Rectal Use)) 125 mg PO QID [facility] Last Admin: 02/21/17 11:33 Dose: Not Given - Labs Labs: 02/21/17 08:05 02/21/17 08:05 PT 12.3 SECONDS (9.7-12.2) H 02/18/17 05:30 INR 1.1 02/18/17 05:30 APTT 30 SECONDS (21-34) 02/18/17 05:30 - Constitutional Appears: Non-toxic - Head Exam Head Exam: NORMAL INSPECTION - Eye Exam Eye Exam: Normal appearance Pupil Exam: PERRL - ENT Exam ENT Exam: Mucous Membranes Moist - Neck Exam Neck Exam: Normal Inspection - Respiratory Exam Respiratory Exam: NORMAL BREATHING PATTERN - Cardiovascular Exam Cardiovascular Exam: REGULAR RHYTHM - GI/Abdominal Exam GI & Abdominal Exam: Soft, Normal Bowel Sounds - Extremities Exam Extremities Exam: Normal Inspection - Back Exam Back Exam: NORMAL INSPECTION - Neurological Exam Neurological Exam: Alert, Awake - Skin Skin Exam: Dry, Warm
[2017-02-21] MEDS: (Lantus) Insulin Glargine, Recombinant SC SCH (21:59)
[2017-02-21] MEDS: Latanoprost 2.5 ml Opht Soln OU SCH (21:59)
--- NOTE | 2017-02-21 22:45 | CON ---
DATE: The patient is an older woman admitted to the hospital and followed by me recently. The CT angiogram was done, which basically shows the patient has some SFA disease, but primarily tibial disease and she has what appears to be a remediable situation in her left anterior tibial artery. I discussed with the my recommendation that she undergo an angiogram and that seemed to improve the perfusion into the foot. In addition, I told him that my concern was that even if we were to improve the circulation that she still would face the prospect of an amputation of the leg below the knee despite having had multiple interventions over a period of time, so my feeling is that the patient's primary goal should be to have a below-knee amputation. If they would not accept that then attempts can be made and I think quite successfully to improve the perfusion in the leg, but this alone will not solve the problem. At this point, he said he wanted the patient to transfer to [facility] under the care of Dr. Ware. He also said he did not know who had been taking care of her other leg, because there is evidence on CT angiogram previously placed stents in the anterior tibial artery. He says he has no idea who placed them, which I find quite strange. Nonetheless, I think that this is an endovascularly treatable situation. How much this will make a difference for the patient is entirely another matter. This was reviewed and discussed with the documentation today. Ignacio Broussard Jr., MD
[2017-02-22] MEDS: Thiamine 100 mg/ml Inj IV SCH ×3 (01:05→19:51)
[2017-02-22] MEDS: metroNIDAZOLE IV 500 mg/100 ml 500 MG/100 ML BAG IVPB SCH ×3 (05:27→22:17)
[2017-02-22 09:07] LABS: BASO # 0.1 K/uL (0.0-0.2); BASO % 0.5 % (0.0-2.0); EOS # 0.3 K/uL (0.0-0.7); EOS % 1.5 % (0.0-4.0); LYMPH # 1.1 K/uL (1.0-4.3); LYMPH % 5.6 % (20.0-40.0); MEAN CELL VOLUME 89.5 fL (81.0-99.0); MEAN CORPUSCULAR HEMOGLOBIN 27.8 pg (27.0-31.0); MEAN PLATELET VOLUME 9.1 fL (7.2-11.7); MONO % 9.8 % (0.0-10.0); NRBC % 0.1 % (0.0-2.0); PLATELET COUNT 316 K/uL (130-400); RED CELL DISTRIBUTION WIDTH 18.1 % (11.5-14.5); WHITE BLOOD COUNT 20.2 K/uL (4.8-10.8)
[2017-02-22 09:11] LABS: POTASSIUM 3.1 mmol/L (3.6-5.2)
[2017-02-22 09:13] LABS: ALB/GLOB RATIO 0.9 (1.0-2.1); BILIRUBIN,TOTAL 0.5 mg/dL (0.2-1.3); TOTAL PROTEIN 5.7 g/dL (6.3-8.3)
[2017-02-22 09:14] LABS: CALCIUM 8.6 mg/dl (8.6-10.4); PHOSPHOROUS 3.1 mg/dL (2.5-4.5)
[2017-02-22 09:15] LABS: MAGNESIUM 1.8 mg/dL (1.6-2.3)
[2017-02-22] MEDS: Brimonidine 0.2% Opth Sol (5ml) OU SCH ×3 (09:45→19:53)
[2017-02-22] MEDS: (Novolin R) Insulin Human Regular 100 units/ml vial SC SCH ×4 (09:45→22:00)
[2017-02-22] MEDS: Vancomycin 125 MG/5 ML SOLN (ORAL/RECTAL) PO SCH ×2 (09:48→13:11)
[2017-02-22] MEDS ORDERED: Potassium Chloride 20 mEq/15 ml LIQ UD PO SCH (10:15)
--- NOTE | 2017-02-22 10:55 | CP.PCM.PN ---
Subjective - Date & Time of Evaluation Date of Evaluation: 02/22/17 Time of Evaluation: 08:00 - Subjective Subjective: Medicine Note for Dr. Myrick Patient was seen and examined at bedside. Patient is currently eating yogurt, being fed by her . Does not speak, but responds with head nodding. ROS unatt[place]bale. Objective - Vital Signs/Intake and Output Vital Signs (last 24 hours): Temp Pulse Resp BP Pulse Ox 98.5 F 77 20 155/69 H 95 02/22/17 07:52 02/22/17 07:52 02/22/17 07:52 02/22/17 09:44 02/22/17 07:52 - Medications Medications: Current Medications Amlodipine Besylate (Norvasc) 5 mg PO DAILY [facility] Last Admin: 02/22/17 09:43 Dose: 5 mg Brimonidine Tartrate (Alphagan 0.2% Opht) 1 ml OU TID [facility] Last Admin: 02/22/17 09:45 Dose: 1 drop Bumetanide (Bumex) 1 mg PO [facility] [place] Epoetin Maxwell (Procrit) 10,000 unit IV TTS [facility] Stop: 03/03/17 10:01 Last Admin: 02/21/17 11:15 Dose: 10,000 unit Ferric Sodium Gluconate Complex (Ferrlecit) 125 mg IVPB [facility] Stop: 02/24/17 10:01 Last Admin: 02/21/17 11:14 Dose: 125 mg Furosemide (Lasix) 40 mg PO DAILY [facility] Last Admin: 02/22/17 09:44 Dose: 40 mg Heparin Sodium (Porcine) (Heparin) 3,700 units IVP TTS [facility] Last Admin: 02/21/17 13:37 Dose: 3,700 units Hydralazine HCl (Apresoline) 25 mg PO BID [facility] Last Admin: 02/22/17 09:46 Dose: 25 mg Cefepime HCl 1 gm/ Dextrose 50 mls @ 100 mls/hr IVPB Q24H [facility] Last Admin: 02/21/17 18:08 Dose: 100 mls/hr Vancomycin HCl 1,000 mg/ (Sodium Chloride) 250 mls @ 166.6 mls/hr IVPB MWF [facility] Last Admin: 02/20/17 08:50 Dose: 166.6 mls/hr Metronidazole (Flagyl) 500 mg in 100 mls @ 100 mls/hr IVPB Q8 [facility] Last Admin: 02/22/17 05:27 Dose: 100 mls/hr Potassium Chloride (Potassium Chloride 20 Meq/100 Ml) 20 meq in 100 mls @ 50 mls/hr IVPB ONCE ONE Stop: 02/22/17 12:17 Potassium Chloride (Potassium Chloride 20 Meq/100 Ml) 20 meq in 100 mls @ 50 mls/hr IVPB ONCE ONE Stop: 02/22/17 14:59 Insulin Glargine (Lantus) 30 unit SC HS [facility] Last Admin: 02/21/17 21:59 Dose: 30 units Insulin Human Regular (Novolin R) 0 unit SC ACHS ELINA PRN Reason: Protocol Last Admin: 02/22/17 09:45 Dose: 4 unit Ketorolac Tromethamine (Toradol) 30 mg IVP Q6 PRN PRN Reason: Pain, moderate (4-7) Latanoprost (Xalatan Opht) 0.02 ml OU HS [facility] Last Admin: 02/21/17 21:59 Dose: 0.02 ml Losartan Potassium (Cozaar) 100 mg PO DAILY [facility] Last Admin: 02/22/17 09:43 Dose: 100 mg Rosuvastatin Calcium (Crestor) 10 mg PO HS [facility] Last Admin: 02/21/17 22:00 Dose: Not Given Thiamine HCl (Vitamin B1 Inj) 100 mg IV Q8H [facility] Last Admin: 02/22/17 10:03 Dose: 100 mg Timolol Maleate (Timoptic 0.5% Oph Soln) 1 drop OU BID [facility] Last Admin: 02/22/17 09:46 Dose: 1 drop Tramadol HCl (Ultram) 25 mg PO TID PRN PRN Reason: Pain, severe (8-10) Vancomycin HCl (Vancocin (Oral Or Rectal Use)) 125 mg PO QID [facility] Last Admin: 02/22/17 09:48 Dose: 125 mg - Labs Labs: 02/22/17 08:55 02/22/17 08:55 PT 12.3 SECONDS (9.7-12.2) H 02/18/17 05:30 INR 1.1 02/18/17 05:30 APTT 30 SECONDS (21-34) 02/18/17 05:30 - Additional Findings Additional findings: - Constitutional Appears: No Acute Distress, Chronically Ill - Head Exam Head Exam: ATRAUMATIC, NORMOCEPHALIC - Eye Exam Eye Exam: EOMI, Normal appearance - ENT Exam ENT Exam: Mucous Membranes Moist - Respiratory Exam Respiratory Exam: Clear to Ausculation Bilateral. absent: Rales, Rhonchi, Wheezes - Cardiovascular Exam Cardiovascular Exam: REGULAR RHYTHM, +S1, +S2 - GI/Abdominal Exam GI & Abdominal Exam: Soft, Normal Bowel Sounds. absent: Tenderness - Extremities Exam Extremities Exam: Pedal Edema (bilaterally) Additional comments: Chronic venous stasis changes bilaterally in the legs Left foot ulcer with 10x5 cm eschar spanning lateral plantar surface- placed in prevalon boot - Neurological Exam Neurological Exam: Altered, Awake Additional comments: Moving all 4 extremities. - Skin Skin Exam: Dry, Pallor Assessment and Plan - Assessment and Plan (Free Text) Plan: Disposition: PATIENT IS TO BE TRANSFERRED TO [place] for hyperbaric oxygen therapy for left foot necrotic ulcer. Patient will be admitted under Dr. Kris Levin's service. Patient is to be transferred once insurance approved and bed is available for patient. Non-Healing Left Heel Ulcer Podiatry consult - Dr. Avery, help appreciated Infectious Disease Dr. Wellington consulted, help appreciated. Dr. Broussard on board, help appreciated. Low ext arterial duplex (02/04/17): R- occlusion R post tib artery, 50-75% stenosis right mid popliteal & proximal anterior tib arteries L- occlusion of left post tib artery, >75% stenosis left proximal ant tibial artery, 50-75% stenosis left distal SFA & proximal popliteal a. Vancomycin 1000 mg IV MWF [facility] Cefepime 1 gm IV Q24H Abdominal Angiography 02/19/17: Severe bilateral lower extremity arterial runoff with 1 vessel likely remaining patent at the right. None is continuously patent at the left lower extremity [id number]. Please see discussion above. Widely patent abdominal aorta and iliac arterial system with moderate right and [id number] left femoral arterial disease. Severe bilateral popliteal artery arterial disease. Dr. Avery recommended Left BKA given his physical exam findings. Dr. Broussard also recommends the left BKA. He stated that even if the gangrenous portion is removed, it will not heal regardless of revascularization. C. Diff C.Diff studies positive Patient on isolation contact precaution Vancomycin 125 mg PO QID started Dr. Wellington added Flagyl 500 mg IV Q8H Altered Mental Status CT Head negative for Acute Territorial Infarction Patient found hypoglycemic by both and EMS with symptoms that suggest seizure episode. Patient is a poorly controlled diabetic. Monitor Accuchecks qACHS and Q4H Patient likely had an episode of neuroglycopenia and currently in post-ictal state. Due to post-ictal state, decision made to avoid narcotic pain medications. NPO for now since patient failed multiple bedside swallow evaluation. BEAM RACKER saw her on date of admission but patient was too lethargic for proper evaluation. BEAM RACKER performed successful bedside swallow eval and recommended Pureed diet with thin liquids. Home PO meds restarted. Neurology consult Dr. Tanisha Aguirre, help appreciated. Thiamine 100 mg Q8H F/u MRI brain History of End Stage Renal Disease On HD T,,S Dr. Ambrose nephrology consult. Leukocytosis Currently downtrending Patient given steroids on prior admission. Per chart review, patient received dose of solumedrol 40 mg IV on 02/13 and 02/14 ABG lactate 0.7 Procalcitonin 1.43 Will continue to trend for now History of hypertension Lopressor 5 mg IV one time dose given. For now, we are wary of using IV antihypertensive medications because the patient is in a fragile state. We requested but were unable to attain ICU monitoring. PO Home medications resumed * Norvasc 5 mg PO daily * Losartan 100 mg PO daily * Furosemide 40 mg PO daily * Held Bumex for now Anemia of Chronic Disease H/H 11.4/37 on admission Likely secondary to ESRD Hemoglobin dropped from 11.[address] Ambrose put for IV ferlicet 125 mg and Procrit 10,000 units IV Diabetes Accuchecks qACHS and Q4H for now RISS Restarted Home Lantus 30 units SC HS Prophylactic Measures SCDs for now Decision made to avoid anticoagulation for now due to concern of possible evolving brain bleed or CT occult bleed 1:1 observation due to agitation. Patient tries to get out of bed. Fall precautions DW Teri Lou DO PGY-1
[2017-02-22 12:34] LABS: EOSINOPHIL 5 % (0-4); NEUTROPHIL 78 % (50-75); TOTAL CELLS COUNTED 100
[2017-02-22 12:35] LABS: LARGE PLATELETS PRESENT
--- NOTE | 2017-02-22 15:39 | CP.PCM.PN ---
Subjective - Date & Time of Evaluation Date of Evaluation: 02/22/17 Time of Evaluation: 09:00 - Subjective Subjective: refusing amputation + c diff necrotic area left foot unchanged Objective - Vital Signs/Intake and Output Vital Signs (last 24 hours): Temp Pulse Resp BP Pulse Ox 98.5 F 77 20 155/69 H 95 02/22/17 07:52 02/22/17 08:00 02/22/17 07:52 02/22/17 09:44 02/22/17 12:18 - Medications Medications: Current Medications Amlodipine Besylate (Norvasc) 5 mg PO DAILY [facility] Last Admin: 02/22/17 09:43 Dose: 5 mg Brimonidine Tartrate (Alphagan 0.2% Opht) 1 ml OU TID [facility] Last Admin: 02/22/17 13:10 Dose: 1 drop Bumetanide (Bumex) 1 mg PO MWF [facility] Epoetin Maxwell (Procrit) 10,000 unit IV TTS [facility] Stop: 03/03/17 10:01 Last Admin: 02/21/17 11:15 Dose: 10,000 unit Ferric Sodium Gluconate Complex (Ferrlecit) 125 mg IVPB TTS [facility] Stop: 02/24/17 10:01 Last Admin: 02/21/17 11:14 Dose: 125 mg Furosemide (Lasix) 40 mg PO DAILY [facility] Last Admin: 02/22/17 09:44 Dose: 40 mg Heparin Sodium (Porcine) (Heparin) 3,700 units IVP TTS [facility] Last Admin: 02/21/17 13:37 Dose: 3,700 units Hydralazine HCl (Apresoline) 25 mg PO BID [facility] Last Admin: 02/22/17 09:46 Dose: 25 mg Cefepime HCl 1 gm/ Dextrose 50 mls @ 100 mls/hr IVPB Q24H [facility] Last Admin: 02/21/17 18:08 Dose: 100 mls/hr Vancomycin HCl 1,000 mg/ (Sodium Chloride) 250 mls @ 166.6 mls/hr IVPB MWF [facility] Last Admin: 02/20/17 08:50 Dose: 166.6 mls/hr Metronidazole (Flagyl) 500 mg in 100 mls @ 100 mls/hr IVPB Q8 [facility] Last Admin: 02/22/17 05:27 Dose: 100 mls/hr Insulin Glargine (Lantus) 30 unit SC [facility] Last Admin: 02/21/17 21:59 Dose: 30 units Insulin Human Regular (Novolin R) 0 unit SC [facility] PRN Reason: Protocol Last Admin: 02/22/17 12:12 Dose: Not Given Ketorolac Tromethamine (Toradol) 30 mg IVP Q6 PRN PRN Reason: Pain, moderate (4-7) Last Admin: 02/22/17 13:40 Dose: 30 mg Latanoprost (Xalatan Opht) 0.02 ml OU [facility] Last Admin: 02/21/17 21:59 Dose: 0.02 ml Losartan Potassium (Cozaar) 100 mg PO DAILY [facility] Last Admin: 02/22/17 09:43 Dose: 100 mg Rosuvastatin Calcium (Crestor) 10 mg PO [facility] Last Admin: 02/21/17 22:00 Dose: Not Given Thiamine HCl (Vitamin B1 Inj) 100 mg IV Q8H [facility] Last Admin: 02/22/17 10:03 Dose: 100 mg Timolol Maleate (Timoptic 0.5% [facility]) 1 drop OU BID [facility] Last Admin: 02/22/17 09:46 Dose: 1 drop Tramadol HCl (Ultram) 25 mg PO TID PRN PRN Reason: Pain, severe (8-10) Vancomycin HCl (Vancocin (Oral Or Rectal Use)) 125 mg PO QID [facility] Last Admin: 02/22/17 13:11 Dose: 125 mg - Labs Labs: 02/22/17 08:55 02/22/17 08:55 PT 12.3 SECONDS (9.7-12.2) H 02/18/17 05:30 INR 1.1 02/18/17 05:30 APTT 30 SECONDS (21-34) 02/18/17 05:30 - Constitutional Appears: Non-toxic, Chronically Ill - Head Exam Head Exam: NORMOCEPHALIC - Eye Exam Eye Exam: EOMI, PERRL. absent: Scleral icterus - ENT Exam ENT Exam: Mucous Membranes Dry - Neck Exam Neck Exam: absent: Lymphadenopathy - Respiratory Exam Respiratory Exam: Decreased Breath Sounds, Rhonchi - Cardiovascular Exam Cardiovascular Exam: REGULAR RHYTHM - GI/Abdominal Exam GI & Abdominal Exam: Distended, Soft - Rectal Exam Rectal Exam: Deferred - Exam Exam: NORMAL INSPECTION - Extremities Exam Extremities Exam: Pedal Edema - Back Exam Back Exam: absent: CVA tenderness (L), CVA tenderness (R) - Neurological Exam Neurological Exam: Alert, Awake Assessment and Plan (1) Change in mental status Status: Acute (2) End stage renal disease on dialysis Status: Acute (3) Heel ulcer Status: Acute (4) IDDM (insulin dependent diabetes mellitus) Status: Chronic
[2017-02-22] MEDS ORDERED: Dextrose 50% SYRINGE Inj (50 ml) IV STA (16:56)
[2017-02-22] MEDS ORDERED: Tramadol 25 mg PO ONE (16:57)
[2017-02-22] MEDS: (Lantus) Insulin Glargine, Recombinant SC SCH (22:00)
[2017-02-22] MEDS: Latanoprost 2.5 ml Opht Soln OU SCH (22:18)
[2017-02-23] MEDS: Thiamine 100 mg/ml Inj IV SCH ×3 (03:10→18:56)
[2017-02-23] MEDS: metroNIDAZOLE IV 500 mg/100 ml 500 MG/100 ML BAG IVPB SCH ×2 (05:20→14:00)
[2017-02-23] MEDS: (Novolin R) Insulin Human Regular 100 units/ml vial SC SCH ×4 (07:30→21:57)
[2017-02-23 08:22] LABS: BASO # 0.1 K/uL (0.0-0.2); BASO % 0.4 % (0.0-2.0); EOS # 0.4 K/uL (0.0-0.7); EOS % 1.7 % (0.0-4.0); HEMATOCRIT 32.5 % (34.0-47.0); LYMPH # 0.8 K/uL (1.0-4.3); LYMPH % 3.6 % (20.0-40.0); MEAN CELL VOLUME 89.9 fL (81.0-99.0); MEAN CORPUSCULAR HEMOGLOBIN 28.2 pg (27.0-31.0); MEAN CORPUSCULAR HGB CONC 31.4 g/dL (33.0-37.0); MEAN PLATELET VOLUME 9.4 fL (7.2-11.7); MONO # 1.3 K/uL (0.0-0.8); MONO % 5.7 % (0.0-10.0); NRBC % 0.1 % (0.0-2.0); PLATELET COUNT 343 K/uL (130-400); RED CELL DISTRIBUTION WIDTH 18.2 % (11.5-14.5); WHITE BLOOD COUNT 23.1 K/uL (4.8-10.8)
[2017-02-23 08:43] LABS: POTASSIUM 4.4 mmol/L (3.6-5.2)
[2017-02-23 08:45] LABS: BILIRUBIN,TOTAL 0.7 mg/dL (0.2-1.3); CALCIUM 8.4 mg/dl (8.6-10.4); PHOSPHOROUS 4.2 mg/dL (2.5-4.5); TOTAL PROTEIN 5.9 g/dL (6.3-8.3)
[2017-02-23 08:46] LABS: MAGNESIUM 1.7 mg/dL (1.6-2.3)
[2017-02-23 10:14] LABS: NEUTROPHIL 93 % (50-75); NUCLEATED RED BLOOD CELL 1 % (0-0); TOTAL CELLS COUNTED 100
--- NOTE | 2017-02-23 10:30 | CP.PCM.DIS ---
Provider - Provider Date of Admission: 02/18/17 06:22 Attending physician: Benson Myrick Jr, MD Hospital Course - Lab Results Lab Results: Micro Results 02/18/17 05:19 Blood Blood Culture - Final NO GROWTH AFTER 5 DAYS 02/18/17 05:19 Blood Gram Stain - Final TEST NOT PERFORMED 02/18/17 05:19 Blood Blood Culture - Final NO GROWTH AFTER 5 DAYS 02/18/17 05:19 Blood Gram Stain - Final TEST NOT PERFORMED 02/18/17 20:36 Foot - Left Gram Stain - Final 02/18/17 20:36 Foot - Left Wound Culture - Final Serratia Marcescens Vancomycin Resistant E.faecium Most Recent Lab Values WBC 23.1 K/uL (4.8-10.8) H 02/23/17 07:54 RBC 3.61 Mil/uL (3.80-5.20) L 02/23/17 07:54 Hgb 10.2 g/dL (11.0-16.0) L 02/23/17 07:54 Hct 32.5 % (34.0-47.0) L 02/23/17 07:54 MCV 89.9 fL (81.0-99.0) 02/23/17 07:54 MCH 28.2 pg (27.0-31.0) 02/23/17 07:54 MCHC 31.4 g/dL (33.0-37.0) L 02/23/17 07:54 RDW 18.2 % (11.5-14.5) H 02/23/17 07:54 Plt Count 343 K/uL (130-400) 02/23/17 07:54 MPV 9.4 fL (7.2-11.7) 02/23/17 07:54 Neut % (Auto) 88.6 % (50.0-75.0) H 02/23/17 07:54 Lymph % (Auto) 3.6 % (20.0-40.0) L 02/23/17 07:54 [place] % (Auto) 5.7 % (0.0-10.0) 02/23/17 07:54 Eos % (Auto) 1.7 % (0.0-4.0) 02/23/17 07:54 Baso % (Auto) 0.4 % (0.0-2.0) 02/23/17 07:54 Neut # 20.5 K/uL (1.8-7.0) H 02/23/17 07:54 Lymph # 0.8 K/uL (1.0-4.3) L 02/23/17 07:54 [place] # 1.3 K/uL (0.0-0.8) H 02/23/17 07:54 Eos # 0.4 K/uL (0.0-0.7) 02/23/17 07:54 Baso # 0.1 K/uL (0.0-0.2) 02/23/17 07:54 Neutrophils % (Manual) 93 % (50-75) H 02/23/17 07:54 Band Neutrophils % 1 % (0-2) 02/22/17 08:55 Lymphocytes % (Manual) 1 % (20-40) L 02/23/17 07:54 Monocytes % (Manual) 6 % (0-10) 02/23/17 07:54 Eosinophils % (Manual) 5 % (0-4) H 02/22/17 08:55 Nucleated RBC % 1 % (0-0) H 02/23/17 07:54 Platelet Estimate Normal (NORMAL) 02/23/17 07:54 Large Platelets Present 02/22/17 08:55 Polychromasia Slight 02/23/17 07:54 Hypochromasia (manual) Slight 02/23/17 07:54 Poikilocytosis (manual Slight 02/21/17 08:05 Basophilic Stippling Slight 02/20/17 07:37 Anisocytosis (manual) Slight 02/23/17 07:54 Microcytosis (manual) Slight 02/22/17 08:55 Macrocytosis (manual) Slight 02/22/17 08:55 Tear Drop Cells Slight 02/22/17 08:55 Ovalocytes Slight 02/22/17 08:55 PT 12.3 SECONDS (9.7-12.2) H 02/18/17 05:30 INR 1.1 02/18/17 05:30 APTT 30 SECONDS (21-34) 02/18/17 05:30 Puncture Site Rr 02/18/17 05:37 pCO2 46 mm/Hg (35-45) H 02/18/17 05:37 pO2 325 mm/Hg (80-100) H 02/18/17 05:37 HCO3 29.1 mmol/L (21-28) H 02/18/17 05:37 ABG pH 7.43 (7.35-7.45) 02/18/17 05:37 ABG Total CO2 31.9 mmol/L (22-28) H 02/18/17 05:37 ABG O2 Saturation 98.7 % (95-98) H 02/18/17 05:37 ABG Base Excess 5.3 mmol/L (-2.0-3.0) H 02/18/17 05:37 Joey Test Pos 02/18/17 05:37 ABG Potassium 4.1 mmol/L (3.6-5.2) 02/18/17 05:37 A-a O2 Difference 331.0 mm/Hg 02/18/17 05:37 Respiratory Index 1.0 02/18/17 05:37 Sodium 132.0 mmol/l (132-148) 02/18/17 05:37 Chloride 100.0 mmol/L (98-107) 02/18/17 05:37 Glucose 140 mg/dl (65-105) H 02/18/17 05:37 Lactate 0.7 mmol/L (0.7-2.1) 02/18/17 05:37 FiO2 100.0 % 02/18/17 05:37 Sodium 131 mmol/L (132-148) L 02/23/17 07:54 Potassium 4.4 mmol/L (3.6-5.2) 02/23/17 07:54 Chloride 94 mmol/L (98-107) L 02/23/17 07:54 Carbon Dioxide 21 mmol/L (22-30) L 02/23/17 07:54 Anion Gap 20 (10-20) 02/23/17 07:54 BUN 31 mg/dL (7-17) H 02/23/17 07:54 Creatinine 2.8 MG/DL (0.7-1.2) H 02/23/17 07:54 Est GFR ( Amer) 20 02/23/17 07:54 Est GFR (Non-Af Amer) 17 02/23/17 07:54 POC Glucose (mg/dL) 240 mg/dL (65-110) H 02/23/17 06:03 Random Glucose 270 mg/dL (65-105) H 02/23/17 07:54 Hemoglobin A1c 8.9 % (4.2-6.5) H D 02/18/17 05:30 Lactic Acid 0.9 mmol/L (0.7-2.1) 02/19/17 01:21 Calcium 8.4 mg/dl (8.6-10.4) L 02/23/17 07:54 Phosphorus 4.2 mg/dL (2.5-4.5) 02/23/17 07:54 Magnesium 1.7 mg/dL (1.6-2.3) 02/23/17 07:54 Total Bilirubin 0.7 mg/dL (0.2-1.3) 02/23/17 07:54 AST 16 U/L (14-36) 02/23/17 07:54 ALT 24 U/L (9-52) 02/23/17 07:54 Alkaline Phosphatase 150 U/L (38-126) H 02/23/17 07:54 Total Protein 5.9 g/dL (6.3-8.3) L 02/23/17 07:54 Albumin 2.9 g/dL (3.5-5.0) L 02/23/17 07:54 Globulin 3.0 gm/dL (2.2-3.9) 02/23/17 07:54 Albumin/Globulin Ratio 1.0 (1.0-2.1) 02/23/17 07:54 Triglycerides 134 mg/dL (0-149) 02/18/17 05:30 Cholesterol 157 mg/dL (0-199) 02/18/17 05:30 LDL Cholesterol Direct 62 mg/dL (0-129) 02/18/17 05:30 HDL Cholesterol 67 mg/dL (30-70) 02/18/17 05:30 Procalcitonin 1.43 NG/ML (0.19-0.49) H 02/18/17 16:31 Arterial Blood Potassium 4.1 mmol/L (3.6-5.2) 02/18/17 05:37 C. difficile Ag & Toxin Positive (NEGATIVE) H 02/18/17 06:22 Blood Type B POSITIVE 02/18/17 05:30 Antibody Screen Negative 02/18/17 05:30 Discharge Exam - Head Exam Head Exam: NORMOCEPHALIC Discharge Plan - Follow Up Plan Condition: CRITICAL Disposition: HOME/ ROUTINE
[2017-02-23] MEDS: Brimonidine 0.2% Opth Sol (5ml) OU SCH ×3 (10:45→18:59)
--- NOTE | 2017-02-23 12:58 | CARD ---
APPROVED REPORT EKG Measurement Heart [id number] <Conclusion> Normal sinus rhythm Nonspecific T wave abnormality Abnormal ECG
--- NOTE | 2017-02-23 16:18 | CT ---
PROCEDURE: CT HEAD WITHOUT CONTRAST. HISTORY: altered mental status COMPARISON: None available. TECHNIQUE: Axial computed tomography images were obtained through the head/brain without intravenous contrast. Radiation dose: Total exam DLP = 806.11 mGy-cm. This CT exam was performed using one or more of the following dose reduction techniques: Automated exposure control, adjustment of the mA and/or kV according to patient size, and/or use of iterative reconstruction technique. FINDINGS: HEMORRHAGE: No intracranial hemorrhage. BRAIN: No mass effect or edema. Mild diffuse age-appropriate cerebral atrophy. There is mild periventricular white matter lucency consistent with age related microvascular ischemic change. Punctate hyperdensity in the left catarino is seen on prior examination of 02/18/2017 and likely represents focal calcification. If this represented hemorrhage, this would be expected unchanged in the interval between these examinations. VENTRICLES: Unremarkable. No hydrocephalus. CALVARIUM: Unremarkable. PARANASAL SINUSES: Unremarkable as visualized. No significant inflammatory changes. MASTOID AIR CELLS: Unremarkable as visualized. No inflammatory changes. OTHER FINDINGS: None. IMPRESSION: No intracranial mass, hemorrhage or evidence of acute infarct. Mild age-appropriate atrophy and chronic white matter ischemic change.
--- NOTE | 2017-02-23 18:47 | CP.PCM.PN ---
<Piyush Segura - Last Filed: 02/23/17 18:44> Subjective - Date & Time of Evaluation Date of Evaluation: 02/23/17 Time of Evaluation: 07:40 - Subjective Subjective: PGY-[address] Myrick Patient seen and examined at bedside. Patient's mental status seems to slowly be improving. Patient was able to mouth her 's name today. Patient remains non-verbal for the most part, able to utter sounds and recognize familiar faces but remains confused intermittently. Unable to obtain ROS currently. Objective - Vital Signs/Intake and Output Vital Signs (last 24 hours): Temp Pulse Resp BP Pulse Ox 97.4 F L 78 20 164/66 H 95 02/23/17 15:57 02/23/17 15:57 02/23/17 15:57 02/23/17 15:57 02/23/17 15:57 Intake and Output: 02/23/17 02/23/17 06:59 18:59 Intake Total 510 Balance 510 - Medications Medications: Current Medications Amlodipine Besylate (Norvasc) 5 mg PO DAILY [facility] Last Admin: 02/23/17 10:45 Dose: 5 mg Brimonidine Tartrate (Alphagan 0.2% Opht) 1 ml OU TID [facility] Last Admin: 02/23/17 10:45 Dose: 1 drop Bumetanide (Bumex) 1 mg PO MWF [facility] Epoetin Maxwell (Procrit) 10,000 unit IV TTS [facility] Stop: 03/03/17 10:01 Last Admin: 02/21/17 11:15 Dose: 10,000 unit Ferric Sodium Gluconate Complex (Ferrlecit) 125 mg IVPB TTS [facility] Stop: 02/24/17 10:01 Last Admin: 02/21/17 11:14 Dose: 125 mg Furosemide (Lasix) 40 mg PO DAILY [facility] Last Admin: 02/23/17 10:45 Dose: 40 mg Heparin Sodium (Porcine) (Heparin) 3,700 units IVP TTS [facility] Last Admin: 02/21/17 13:37 Dose: 3,700 units Heparin Sodium (Porcine) (Heparin) 5,000 units SC Q8 [facility] Hydralazine HCl (Apresoline) 25 mg PO BID [facility] Last Admin: 02/23/17 10:45 Dose: 25 mg Cefepime HCl 1 gm/ Dextrose 50 mls @ 100 mls/hr IVPB Q24H [facility] Last Admin: 02/22/17 19:00 Dose: 100 mls/hr Insulin Glargine (Lantus) 30 unit SC HS [facility] Last Admin: 02/22/17 22:00 Dose: Not Given Insulin Human Regular (Novolin R) 0 unit SC ACHS [facility] PRN Reason: Protocol Last Admin: 02/23/17 13:30 Dose: 12 unit Ketorolac Tromethamine (Toradol) 30 mg IVP Q6 PRN PRN Reason: Pain, moderate (4-7) Last Admin: 02/22/17 13:40 Dose: 30 mg Latanoprost (Xalatan Opht) 0.02 ml OU HS [facility] Last Admin: 02/22/17 22:18 Dose: 0.02 ml Linezolid (Zyvox) 600 mg PO BID [facility] Last Admin: 02/23/17 10:45 Dose: 600 mg Losartan Potassium (Cozaar) 100 mg PO DAILY [facility] Last Admin: 02/23/17 10:45 Dose: 100 mg Metronidazole (Flagyl) 500 mg PO Q8 [facility] Rosuvastatin Calcium (Crestor) 10 mg PO HS [facility] Last Admin: 02/22/17 22:17 Dose: 10 mg Thiamine HCl (Vitamin B1 Inj) 100 mg IV Q8H [facility] Last Admin: 02/23/17 10:45 Dose: 100 mg Timolol Maleate (Timoptic 0.5% Oph Soln) 1 drop OU BID [facility] Last Admin: 02/23/17 10:45 Dose: 1 drop - Labs Labs: 02/23/17 07:54 02/23/17 07:54 PT 12.3 SECONDS (9.7-12.2) H 02/18/17 05:30 INR 1.1 02/18/17 05:30 APTT 30 SECONDS (21-34) 02/18/17 05:30 - Constitutional Appears: No Acute Distress, Chronically Ill - Head Exam Head Exam: ATRAUMATIC, NORMOCEPHALIC - Eye Exam Eye Exam: EOMI, Normal appearance - ENT Exam ENT Exam: Mucous Membranes Moist - Respiratory Exam Respiratory Exam: Clear to Ausculation Bilateral. absent: Rales, Rhonchi, Wheezes - Cardiovascular Exam Cardiovascular Exam: REGULAR RHYTHM, +S1, +S2 - GI/Abdominal Exam GI & Abdominal Exam: Soft, Normal Bowel Sounds. absent: Tenderness - Extremities Exam Extremities Exam: Pedal Edema (pitting bilaterally) Additional comments: Chronic venous stasis changes bilaterally in the legs Left foot ulcer with 10x5 cm eschar spanning lateral plantar surface- placed in prevalon boot - Neurological Exam Neurological Exam: Altered, Awake Additional comments: Moving all 4 extremities - Skin Skin Exam: Dry, Pallor Assessment and Plan - Assessment and Plan (Free Text) Plan: Disposition: PATIENT IS TO BE TRANSFERRED TO [facility] for hyperbaric oxygen therapy for left foot necrotic ulcer. Patient will be admitted under Dr. Kris Levin's service. Patient is to be transferred once insurance officially approved and bed is available for patient. Non-Healing Left Heel Ulcer Podiatry consult - Dr. Avery, help appreciated Infectious Disease Dr. Wellington consulted, help appreciated. Dr. Broussard on board, help appreciated. Low ext arterial duplex (02/04/17): R- occlusion R post tib artery, 50-75% stenosis right mid popliteal & proximal anterior tib arteries L- occlusion of left post tib artery, >75% stenosis left proximal ant tibial artery, 50-75% stenosis left distal SFA & proximal popliteal a. Vancomycin 1000 mg IV MWF [facility] D/C'ed on 02/22/17 Cefepime 1 gm IV Q24H Zyvox 600 mg PO BID started 02/22/17 Abdominal Angiography 02/19/17: Severe bilateral lower extremity arterial runoff with 1 vessel likely remaining patent at the right. None is continuously patent at the left lower extremity [id number]. Please see discussion above. Widely patent abdominal aorta and iliac arterial system with moderate right and [id number] left femoral arterial disease. Severe bilateral popliteal artery arterial disease. Dr. Avery recommended Left BKA given his physical exam findings. Dr. Broussard also recommends the left BKA. He stated that even if the gangrenous portion is removed, it will not heal regardless of revascularization. C. Diff C.Diff studies positive Patient on isolation contact precaution Vancomycin 125 mg PO QID started Dr. Wellington added Flagyl 500 mg IV Q8H switched to PO on 02/23/[address] Head negative for Acute Territorial Infarction Patient found hypoglycemic by both and EMS with symptoms that suggest seizure episode. Patient is a poorly controlled diabetic. Monitor Accuchecks qACHS and Q4H Patient likely had an episode of neuroglycopenia and currently in post-ictal state. Due to post-ictal state, decision made to avoid narcotic pain medications. NPO for now since patient failed multiple bedside swallow evaluation. DRYING RACK CHANGER saw her on date of admission but patient was too lethargic for proper evaluation. DRYING R[employer] CHANGER performed successful bedside swallow eval and recommended Pureed diet with thin liquids. Home PO meds restarted. Neurology consult Dr. Tanisha Aguirre, help appreciated. Thiamine 100 mg Q8H F/u MRI brain, could not get brain MRI due to 3 previous attempts where patient was moving too much. We do not wish to further sedate the patient due to her current mental state, so instead a CT Head without contrast was done on . This CT head did not demonstrate any acute hemorrhagic or ischemic pathology. History of End Stage Renal Disease On HD T,,S Dr. Ambrose nephrology consult. Leukocytosis Currently downtrending Patient given steroids on prior admission. Per chart review, patient received dose of solumedrol 40 mg IV on 02/13 and 02/14 ABG lactate 0.7 Procalcitonin 1.43 Will continue to trend for now History of hypertension Lopressor 5 mg IV one time dose given. For now, we are wary of using IV antihypertensive medications because the patient is in a fragile state. We requested but were unable to attain ICU monitoring. PO Home medications resumed * Norvasc 5 mg PO daily * Losartan 100 mg PO daily * Furosemide 40 mg PO daily * Held Bumex for now Anemia of Chronic Disease H/H 11.4/37 on admission Likely secondary to ESRD Hemoglobin dropped from 11.[address] Ambrose put for IV ferlicet 125 mg and Procrit 10,000 units IV Diabetes Accuchecks qACHS and Q4H for now [facility]ISS Restarted Home Lantus 30 units SC HS Prophylactic Measures SCDs for now Decision made to avoid anticoagulation for now due to concern of possible evolving brain bleed or CT occult bleed 1:1 observation due to agitation. Patient tries to get out of bed. Fall precautions Case DW Dr. Ramez Segura PGY-1 <Benson Myrick Jr. - Last Filed: 03/08/17 11:53> Objective - Vital Signs/Intake and Output Vital Signs (last 24 hours): Temp Pulse Resp BP Pulse Ox 97.9 F 76 20 166/69 H 98 03/08/17 08:12 03/08/17 08:12 03/08/17 08:12 03/08/17 10:49 03/08/17 08:12 Intake and Output: 03/08/17 03/08/17 06:59 18:59 Intake Total 770 Balance 770 - Medications Medications: Current Medications Acetaminophen (Tylenol 325mg Tab) 650 mg PO Q6 PRN PRN Reason: Pain, Mild (1-3) Last Admin: 03/07/17 18:20 Dose: 650 mg Amlodipine Besylate (Norvasc) 5 mg PO DAILY [facility] Last Admin: 03/08/17 10:50 Dose: 5 mg Ascorbic Acid (Vitamin C 500 Mg Tab) 500 mg PO DAILY [facility] Last Admin: 03/08/17 10:49 Dose: 500 mg Brimonidine Tartrate (Alphagan 0.2% Opht) 1 ml OU TID [facility] Last Admin: 03/08/17 10:52 Dose: 1 drop Collagenase (Santyl) 0 gm TOP DAILY [facility] Last Admin: 03/08/17 10:50 Dose: Not Given Dextrose (Dextrose 50% Inj) 0 ml IV STAT PRN; Protocol PRN Reason: Hyglycemia Protocol Dextrose (Glutose 15) 0 gm PO ONCE PRN; Protocol PRN Reason: Hypoglycemia Protocol Epoetin Maxwell (Procrit) 10,000 unit IV TTS [facility] Last Admin: 03/07/17 11:29 Dose: 10,000 unit Ergocalciferol (Drisdol 50,000 Intl Units Cap) 1 cap PO QWK [facility] Last Admin: 03/05/17 14:54 Dose: 1 cap Furosemide (Lasix) 40 mg PO DAILY [facility] Last Admin: 03/08/17 10:49 Dose: 40 mg Glucagon (Glucagen Diagnostic Kit) 0 mg IM STAT PRN; Protocol PRN Reason: Hypoglycemia Protocol Heparin Sodium (Porcine) (Heparin) 5,000 units SC Q8 [facility] Last Admin: 03/08/17 04:59 Dose: 5,000 units Heparin Sodium (Porcine) (Heparin) 3,700 units IVP TTS [facility] Stop: 03/24/17 23:59 Last Admin: 03/07/17 11:20 Dose: 3,700 units Hydralazine HCl (Apresoline) 25 mg PO BID [facility] Last Admin: 03/08/17 10:49 Dose: 25 mg Hydromorphone HCl (Dilaudid) 0.5 mg IVP Q6H PRN PRN Reason: Pain, severe (8-10) Last Admin: 03/08/17 10:50 Dose: 0.5 mg Tigecycline 50 mg/ Sodium (Chloride) 100 mls @ 100 mls/hr IVPB Q12H [facility] Last Admin: 03/08/17 08:33 Dose: 100 mls/hr Fluconazole (Diflucan Iv 200 Mg/100 Ml Ns) 100 mls @ 100 mls/hr IVPB DAILY [facility] Last Admin: 03/08/17 11:03 Dose: 100 mls/hr Sodium Chloride 35 meq/Potassium Chloride 30 meq/Magnesium Sulfate 6 meq/ Calcium Gluconate 4.5 meq/Heparin Sodium (Porcine) 1,000 units/ Amino Acids 1, 035.9052 mls @ 63 mls/hr IV .[id number] [facility] Stop: 03/08/17 18:00 Last Admin: 03/08/17 11:03 Dose: 63 mls/hr Sodium Chloride 35 meq/Potassium Chloride 30 meq/Magnesium Sulfate 6 meq/ Calcium Gluconate 4.5 meq/Heparin Sodium (Porcine) 1,000 units/ Amino Acids 1, 035.9052 mls @ 63 mls/hr IV .[id number] [facility] Stop: 03/09/17 10:26 Sodium Chloride 35 meq/Potassium Chloride 30 meq/Magnesium Sulfate 6 meq/ Calcium Gluconate 4.5 meq/Heparin Sodium (Porcine) 1,000 units/ Amino Acids 1, 035.9052 mls @ 63 mls/hr IV .[id number] [facility] Stop: 03/09/17 17:59 Insulin Glargine (Lantus) 25 unit SC HS [facility] Last Admin: 03/07/17 21:03 Dose: 25 unit Insulin Human Regular (Novolin R) 0 unit SC ACHS [facility] PRN Reason: Protocol Last Admin: 03/08/17 08:33 Dose: 12 unit Latanoprost (Xalatan Opht) 0.02 ml OU HS [facility] Last Admin: 03/07/17 21:13 Dose: Not Given Losartan Potassium (Cozaar) 100 mg PO DAILY [facility] Last Admin: 03/08/17 10:49 Dose: 100 mg Pantoprazole Sodium (Protonix Inj) 40 mg IVP Q12H [facility] Last Admin: 03/08/17 04:26 Dose: 40 mg Rosuvastatin Calcium (Crestor) 10 mg PO HS [facility] Last Admin: 03/07/17 21:07 Dose: 10 mg Timolol Maleate (Timoptic 0.5% Ophth Soln) 1 drop OU BID [facility] Last Admin: 03/08/17 10:51 Dose: 1 drop Vitamin B Complex/Vit C/Folic Acid (Nephro-Alonzo) 1 tab PO 0800 [facility] Last Admin: 03/08/17 08:33 Dose: 1 tab - Labs Labs: 03/07/17 10:03 03/07/17 10:03 PT 12.3 SECONDS (9.7-12.2) H 02/18/17 05:30 INR 1.1 02/18/17 05:30 APTT 30 SECONDS (21-34) 02/18/17 05:30 Attending/Attestation - Attestation I have personally seen and examined this patient.: Yes I have fully participated in the care of the patient.: Yes I have reviewed all pertinent clinical information, including history, physical exam and plan: Yes Notes (Text): 03/08/17 11:52 Agree with resident note and plan of care
--- NOTE | 2017-02-23 20:06 | CP.PCM.PN ---
Subjective - Date & Time of Evaluation Date of Evaluation: 02/23/17 Time of Evaluation: 15:00 - Subjective Subjective: SEEN ON RENAL F/U ALL PREVIOUS EMR REVIEWED ON HD T T S Objective - Vital Signs/Intake and Output Vital Signs (last 24 hours): Temp Pulse Resp BP Pulse Ox 97.4 F L 78 20 164/66 H 95 02/23/17 15:57 02/23/17 15:57 02/23/17 15:57 02/23/17 15:57 02/23/17 15:57 - Medications Medications: Current Medications Amlodipine Besylate (Norvasc) 5 mg PO DAILY [facility] Last Admin: 02/23/17 10:45 Dose: 5 mg Brimonidine Tartrate (Alphagan 0.2% Opht) 1 ml OU TID [facility] Last Admin: 02/23/17 18:59 Dose: 1 drop Bumetanide (Bumex) 1 mg PO MWF [facility] Epoetin Maxwell (Procrit) 10,000 unit IV TTS [facility] Stop: 03/03/17 10:01 Last Admin: 02/21/17 11:15 Dose: 10,000 unit Ferric Sodium Gluconate Complex (Ferrlecit) 125 mg IVPB TTS [facility] Stop: 02/24/17 10:01 Last Admin: 02/21/17 11:14 Dose: 125 mg Furosemide (Lasix) 40 mg PO DAILY [facility] Last Admin: 02/23/17 10:45 Dose: 40 mg Heparin Sodium (Porcine) (Heparin) 3,700 units IVP TTS [facility] Last Admin: 02/21/17 13:37 Dose: 3,700 units Heparin Sodium (Porcine) (Heparin) 5,000 units SC Q8 [facility] Hydralazine HCl (Apresoline) 25 mg PO BID [facility] Last Admin: 02/23/17 18:57 Dose: 25 mg Cefepime HCl 1 gm/ Dextrose 50 mls @ 100 mls/hr IVPB Q24H [facility] Last Admin: 02/23/17 18:55 Dose: 100 mls/hr Insulin Glargine (Lantus) 30 unit SC HS [facility] Last Admin: 02/22/17 22:00 Dose: Not Given Insulin Human Regular (Novolin R) 0 unit SC ACHS [facility] PRN Reason: Protocol Last Admin: 02/23/17 18:59 Dose: 12 unit Ketorolac Tromethamine (Toradol) 30 mg IVP Q6 PRN PRN Reason: Pain, moderate (4-7) Last Admin: 02/22/17 13:40 Dose: 30 mg Latanoprost (Xalatan Opht) 0.02 ml OU HS [facility] Last Admin: 02/22/17 22:18 Dose: 0.02 ml Linezolid (Zyvox) 600 mg PO BID [facility] Last Admin: 02/23/17 18:55 Dose: 600 mg Losartan Potassium (Cozaar) 100 mg PO DAILY [facility] Last Admin: 02/23/17 10:45 Dose: 100 mg Metronidazole (Flagyl) 500 mg PO Q8 [facility] Rosuvastatin Calcium (Crestor) 10 mg PO HS [facility] Last Admin: 02/22/17 22:17 Dose: 10 mg Thiamine HCl (Vitamin B1 Inj) 100 mg IV Q8H [facility] Last Admin: 02/23/17 18:56 Dose: 100 mg Timolol Maleate (Timoptic 0.5% Ophth Soln) 1 drop OU BID [facility] Last Admin: 02/23/17 18:59 Dose: 1 drop - Labs Labs: 02/23/17 07:54 02/23/17 07:54 PT 12.3 SECONDS (9.7-12.2) H 02/18/17 05:30 INR 1.1 02/18/17 05:30 APTT 30 SECONDS (21-34) 02/18/17 05:30 Assessment and Plan - Assessment and Plan (Free Text) Assessment: ESRD ON HD T T S ANEMIA OF CKD MULTIPLE CO MORBIDITIES C/O CURRENT CARE
[2017-02-23] MEDS: (Lantus) Insulin Glargine, Recombinant SC SCH (21:57)
[2017-02-24] MEDS: Thiamine 100 mg/ml Inj IV SCH ×3 (02:55→17:36)
[2017-02-24] MEDS ORDERED: (Novolin R) Insulin Human Regular 100 units/ml vial SC ONE (02:59)
[2017-02-24] MEDS: (Novolin R) Insulin Human Regular 100 units/ml vial SC SCH ×4 (07:51→22:03)
[2017-02-24 10:09] LABS: BASO # 0.1 K/uL (0.0-0.2); BASO % 0.3 % (0.0-2.0); EOS # 0.4 K/uL (0.0-0.7); EOS % 1.8 % (0.0-4.0); HEMATOCRIT 31.1 % (34.0-47.0); LYMPH # 0.9 K/uL (1.0-4.3); LYMPH % 3.6 % (20.0-40.0); MEAN CELL VOLUME 90.2 fL (81.0-99.0); MEAN CORPUSCULAR HEMOGLOBIN 28.2 pg (27.0-31.0); MEAN CORPUSCULAR HGB CONC 31.3 g/dL (33.0-37.0); MEAN PLATELET VOLUME 9.2 fL (7.2-11.7); MONO # 1.4 K/uL (0.0-0.8); MONO % 5.5 % (0.0-10.0); NRBC % 0.1 % (0.0-2.0); PLATELET COUNT 354 K/uL (130-400); WHITE BLOOD COUNT 24.7 K/uL (4.8-10.8)
[2017-02-24 10:16] LABS: POTASSIUM 4.1 mmol/L (3.6-5.2)
[2017-02-24 10:18] LABS: ALB/GLOB RATIO 0.9 (1.0-2.1); BILIRUBIN,TOTAL 0.6 mg/dL (0.2-1.3); TOTAL PROTEIN 5.9 g/dL (6.3-8.3)
[2017-02-24 10:19] LABS: MAGNESIUM 1.8 mg/dL (1.6-2.3); PHOSPHOROUS 3.9 mg/dL (2.5-4.5)
[2017-02-24 10:42] LABS: EOSINOPHIL 3 % (0-4); NEUTROPHIL 83 % (50-75); NUCLEATED RED BLOOD CELL 1 % (0-0); TOTAL CELLS COUNTED 100
[2017-02-24] MEDS: Brimonidine 0.2% Opth Sol (5ml) OU SCH ×3 (10:52→17:43)
[2017-02-24] MEDS ORDERED: Ferric Sodium Gluconat Complex 62.5 mg/5 ml Vial IVPB SCH (12:30)
--- NOTE | 2017-02-24 12:33 | CP.PCM.PN ---
Subjective - Date & Time of Evaluation Date of Evaluation: 02/24/17 Time of Evaluation: 07:00 - Subjective Subjective: WBC HIGHER C DIFF + WILL D/C IV ANTIBIOTICS NEEDS AMPUTATION- FAMILY REFUSING NOT GETTING IV FLAGYL DUE TO SHORTAGE OF FLAGYL Objective - Vital Signs/Intake and Output Vital Signs (last 24 hours): Temp Pulse Resp BP Pulse Ox 98.1 F 73 16 139/60 96 02/24/17 09:52 02/24/17 12:00 02/24/17 12:00 02/24/17 12:00 02/24/17 12:00 - Medications Medications: Current Medications Amlodipine Besylate (Norvasc) 5 mg PO DAILY [facility] Last Admin: 02/24/17 10:52 Dose: Not Given Brimonidine Tartrate (Alphagan 0.2% Opht) 1 ml OU TID [facility] Last Admin: 02/24/17 10:52 Dose: Not Given [facility] Epoetin Maxwell (Procrit) 10,000 unit IV TTS [facility] Stop: 03/03/17 10:01 Last Admin: 02/21/17 11:15 Dose: 10,000 unit Furosemide (Lasix) 40 mg PO DAILY [facility] Last Admin: 02/24/17 10:52 Dose: Not Given Heparin Sodium (Porcine) (Heparin) 3,700 units IVP TTS [facility] Last Admin: 02/21/17 13:37 Dose: 3,700 units Heparin Sodium (Porcine) (Heparin) 5,000 units SC Q8 [facility] Last Admin: 02/24/17 05:31 Dose: 5,000 units Hydralazine HCl (Apresoline) 25 mg PO BID [facility] Last Admin: 02/24/17 10:52 Dose: Not Given Cefepime HCl 1 gm/ Dextrose 50 mls @ 100 mls/hr IVPB Q24H [facility] Last Admin: 02/23/17 18:55 Dose: 100 mls/hr Insulin Glargine (Lantus) 30 unit SC HS [facility] Last Admin: 02/23/17 21:57 Dose: Not Given Insulin Human Regular (Novolin R) 0 unit SC ACHS [facility] PRN Reason: Protocol Last Admin: 02/24/17 07:51 Dose: 12 unit Ketorolac Tromethamine (Toradol) 30 mg IVP Q6 PRN PRN Reason: Pain, moderate (4-7) Last Admin: 02/22/17 13:40 Dose: 30 mg Latanoprost (Xalatan Opht) 0.02 ml OU HS [facility] Last Admin: 02/22/17 22:18 Dose: 0.02 ml Linezolid (Zyvox) 600 mg PO BID [facility] Last Admin: 02/23/17 18:55 Dose: 600 mg Losartan Potassium (Cozaar) 100 mg PO DAILY [facility] Last Admin: 02/23/17 10:45 Dose: 100 mg Metronidazole (Flagyl) 500 mg PO Q8 [facility] Last Admin: 02/24/17 05:31 Dose: 500 mg Rosuvastatin Calcium (Crestor) 10 mg PO HS [facility] Last Admin: 02/23/17 21:56 Dose: 10 mg Thiamine HCl (Vitamin B1 Inj) 100 mg IV Q8H [facility] Last Admin: 02/24/17 10:53 Dose: Not Given Timolol Maleate (Timoptic 0.5% Ophth Soln) 1 drop OU BID [facility] Last Admin: 02/24/17 10:52 Dose: Not Given - Labs Labs: 02/24/17 10:03 02/24/17 10:03 PT 12.3 SECONDS (9.7-12.2) H 02/18/17 05:30 INR 1.1 02/18/17 05:30 APTT 30 SECONDS (21-34) 02/18/17 05:30 - Constitutional Appears: Confused, Cachectic, Chronically Ill - Head Exam Head Exam: NORMOCEPHALIC - Eye Exam Eye Exam: PERRL. absent: Scleral icterus - ENT Exam ENT Exam: Mucous Membranes Dry - Neck Exam Neck Exam: absent: Lymphadenopathy - Respiratory Exam Respiratory Exam: Decreased Breath Sounds - Cardiovascular Exam Cardiovascular Exam: REGULAR RHYTHM - GI/Abdominal Exam GI & Abdominal Exam: Distended - Exam Exam: NORMAL INSPECTION - Extremities Exam Extremities Exam: Pedal Edema, Tenderness - Back Exam Back Exam: absent: CVA tenderness (L), CVA tenderness (R) Assessment and Plan (1) Change in mental status Status: Acute (2) End stage renal disease on dialysis Status: Acute (3) Heel ulcer Status: Acute (4) IDDM (insulin dependent diabetes mellitus) Status: Chronic - Assessment and Plan (Free Text) Assessment: NECROTIC FOOT NEEDS AMPUTATION'HOLD IV ANTIBIOTICS IN VIEW OF C DIFF
[2017-02-24] MEDS: Ferric Sodium Gluconat Complex 62.5 mg/5 ml Vial IVPB SCH (12:35)
[2017-02-24] MEDS: Epoetin Alfa 10,000 unit/ml Dialysis IV SCH (12:37)
[2017-02-24] MEDS: Vancomycin 125 MG/5 ML SOLN (ORAL/RECTAL) PO SCH ×3 (14:04→22:30)
--- NOTE | 2017-02-24 15:58 | CP.PCM.PN ---
<Piuysh Segura - Last Filed: 02/24/17 15:51> Subjective - Date & Time of Evaluation Date of Evaluation: 02/24/17 Time of Evaluation: 10:00 - Subjective Subjective: PGY-[address] Myrick Patient seen and examined at bedside. Patient still has altered mental status but seems to be able to recognize her . Patient still non-verbal, making unintelligible sounds. ROS unable to ascertain. Objective - Vital Signs/Intake and Output Vital Signs (last 24 hours): Temp Pulse Resp BP Pulse Ox 98 F 72 17 140/52 L 96 02/24/17 13:30 02/24/17 13:30 02/24/17 13:30 02/24/17 13:30 02/24/17 13:30 - Medications Medications: Current Medications Amlodipine Besylate (Norvasc) 5 mg PO DAILY [facility] Last Admin: 02/24/17 10:52 Dose: Not Given Brimonidine Tartrate (Alphagan 0.2% Opht) 1 ml OU TID [facility] Last Admin: 02/24/17 14:11 Dose: 1 drop Bumetanide (Bumex) 1 mg PO MWF [facility] Epoetin Maxwell (Procrit) 10,000 unit IV TTS [facility] Stop: 03/03/17 10:01 Last Admin: 02/24/17 12:37 Dose: 10,000 unit Furosemide (Lasix) 40 mg PO DAILY [facility] Last Admin: 02/24/17 10:52 Dose: Not Given Heparin Sodium (Porcine) (Heparin) 3,700 units IVP TTS [facility] Last Admin: 02/24/17 12:37 Dose: 3,700 units Heparin Sodium (Porcine) (Heparin) 5,000 units SC Q8 [facility] Last Admin: 02/24/17 14:05 Dose: 5,000 units Hydralazine HCl (Apresoline) 25 mg PO BID [facility] Last Admin: 02/24/17 10:52 Dose: Not Given Insulin Glargine (Lantus) 30 unit SC HS [facility] Last Admin: 02/23/17 21:57 Dose: Not Given Insulin Human Regular (Novolin R) 0 unit SC ACHS [facility] PRN Reason: Protocol Last Admin: 02/24/17 14:04 Dose: 6 unit Ketorolac Tromethamine (Toradol) 30 mg IVP Q6 PRN PRN Reason: Pain, moderate (4-7) Last Admin: 02/22/17 13:40 Dose: 30 mg Latanoprost (Xalatan Opht) 0.02 ml OU HS [facility] Last Admin: 02/22/17 22:18 Dose: 0.02 ml Losartan Potassium (Cozaar) 100 mg PO DAILY [facility] Last Admin: 02/24/17 14:05 Dose: 100 mg Metronidazole (Flagyl) 500 mg PO Q8 [facility] Last Admin: 02/24/17 14:04 Dose: 500 mg Rosuvastatin Calcium (Crestor) 10 mg PO HS [facility] Last Admin: 02/23/17 21:56 Dose: 10 mg Thiamine HCl (Vitamin B1 Inj) 100 mg IV Q8H [facility] Last Admin: 02/24/17 10:53 Dose: Not Given Timolol Maleate (Timoptic 0.5% Ophth Soln) 1 drop OU BID [facility] Last Admin: 02/24/17 10:52 Dose: Not Given Vancomycin HCl (Vancocin (Oral Or Rectal Use)) 125 mg PO QID [facility] Last Admin: 02/24/17 14:04 Dose: 125 mg - Labs Labs: 02/24/17 10:03 02/24/17 10:03 PT 12.3 SECONDS (9.7-12.2) H 02/18/17 05:30 INR 1.1 02/18/17 05:30 APTT 30 SECONDS (21-34) 02/18/17 05:30 - Constitutional Appears: No Acute Distress - Head Exam Head Exam: ATRAUMATIC, NORMOCEPHALIC - Eye Exam Eye Exam: EOMI, PERRL - ENT Exam ENT Exam: Mucous Membranes Moist - Respiratory Exam Respiratory Exam: Clear to Ausculation Bilateral. absent: Rales, Rhonchi, Wheezes - Cardiovascular Exam Cardiovascular Exam: REGULAR RHYTHM, +S1, +S2 - GI/Abdominal Exam GI & Abdominal Exam: Soft, Normal Bowel Sounds. absent: Tenderness - Extremities Exam Extremities Exam: absent: Calf Tenderness Additional comments: Chronic venous stasis changes bilaterally in the legs Left foot ulcer with 10x5 cm eschar spanning lateral plantar surface- placed in prevalon boot - Neurological Exam Neurological Exam: Altered, Awake Additional comments: Moving all 4 extremities - Skin Skin Exam: Dry, Pallor Assessment and Plan - Assessment and Plan (Free Text) Plan: Disposition: PATIENT IS TO BE TRANSFERRED TO [facility] for hyperbaric oxygen therapy for left foot necrotic ulcer. I was informed by the leather case finisher that Dr. Kris Levin is unable to accept the patient at this time. We will continue to work on the transfer to an accepting doctor's service. Patient is to be transferred once insurance officially approved and bed is available for patient. Non-Healing Left Heel Ulcer Podiatry consult - Dr. Avery, help appreciated Infectious Disease Dr. Wellington consulted, help appreciated. Dr. Broussard on board, help appreciated. Low ext arterial duplex (02/04/17): R- occlusion R post tib artery, 50-75% stenosis right mid popliteal & proximal anterior tib arteries L- occlusion of left post tib artery, >75% stenosis left proximal ant tibial artery, 50-75% stenosis left distal SFA & proximal popliteal a. Vancomycin 1000 mg IV MWF [facility] D/C'ed on 02/22/17 Cefepime 1 gm IV Q24H Zyvox 600 mg PO BID started 02/22/17 Abdominal Angiography 02/19/17: Severe bilateral lower extremity arterial runoff with 1 vessel likely remaining patent at the right. None is continuously patent at the left lower extremity [id number]. Please see discussion above. Widely patent abdominal aorta and iliac arterial system with moderate right and [id number] left femoral arterial disease. Severe bilateral popliteal artery arterial disease. Dr. Avery recommended Left BKA given his physical exam findings. Dr. Broussard also recommends the left BKA. He stated that even if the gangrenous portion is removed, it will not heal regardless of revascularization. C. Diff C.Diff studies positive Patient on isolation contact precaution Vancomycin 125 mg PO QID started Dr. Wellington added Flagyl 500 mg IV Q8H switched to PO on 02/23/[address] Head negative for Acute Territorial Infarction Patient found hypoglycemic by both and EMS with symptoms that suggest seizure episode. Patient is a poorly controlled diabetic. Monitor Accuchecks qACHS and Q4H Patient likely had an episode of neuroglycopenia and currently in post-ictal state. Due to post-ictal state, decision made to avoid narcotic pain medications. NPO for now since patient failed multiple bedside swallow evaluation. [employer] saw her on date of admission but patient was too lethargic for proper evaluation. [employer] performed successful bedside swallow eval and recommended Pureed diet with thin liquids. Home PO meds restarted. Neurology consult Dr. Tanisha Aguirre, help appreciated. Thiamine 100 mg Q8H F/u MRI brain, could not get brain MRI due to 3 previous attempts where patient was moving too much. We do not wish to further sedate the patient due to her current mental state, so instead a CT Head without contrast was done on . This CT head did not demonstrate any acute hemorrhagic or ischemic pathology. History of End Stage Renal Disease On HD T,,S Dr. Ambrose nephrology consult. Leukocytosis Currently downtrending Patient given steroids on prior admission. Per chart review, patient received dose of solumedrol 40 mg IV on 02/13 and 02/14 ABG lactate 0.7 Procalcitonin 1.43 Will continue to trend for now History of hypertension Lopressor 5 mg IV one time dose given. For now, we are wary of using IV antihypertensive medications because the patient is in a fragile state. We requested but were unable to attain ICU monitoring. PO Home medications resumed * Norvasc 5 mg PO daily * Losartan 100 mg PO daily * Furosemide 40 mg PO daily * Held Bumex for now Anemia of Chronic Disease H/H 11.4/37 on admission Likely secondary to ESRD Hemoglobin dropped from 11.[address] Ambrose put for IV ferlicet 125 mg and Procrit 10,000 units IV Diabetes Accuchecks qACHS and Q4H for now RISS Restarted Home Lantus 30 units SC HS Prophylactic Measures SCDs for now Decision made to avoid anticoagulation for now due to concern of possible evolving brain bleed or CT occult bleed 1:1 observation due to agitation. Patient tries to get out of bed. Fall precautions Case DW Dr. Ramez Segura PGY-1 <Benson Myrick Jr. - Last Filed: 03/08/17 11:53> Objective - Vital Signs/Intake and Output Vital Signs (last 24 hours): Temp Pulse Resp BP Pulse Ox 97.9 F 76 20 166/69 H 98 03/08/17 08:12 03/08/17 08:12 03/08/17 08:12 03/08/17 10:49 03/08/17 08:12 Intake and Output: 03/08/17 03/08/17 06:59 18:59 Intake Total 770 Balance 770 - Medications Medications: Current Medications Acetaminophen (Tylenol 325mg Tab) 650 mg PO Q6 PRN PRN Reason: Pain, Mild (1-3) Last Admin: 03/07/17 18:20 Dose: 650 mg Amlodipine Besylate (Norvasc) 5 mg PO DAILY [facility] Last Admin: 03/08/17 10:50 Dose: 5 mg Ascorbic Acid (Vitamin C 500 Mg Tab) 500 mg PO DAILY [facility] Last Admin: 03/08/17 10:49 Dose: 500 mg Brimonidine Tartrate (Alphagan 0.2% Opht) 1 ml OU TID [facility] Last Admin: 03/08/17 10:52 Dose: 1 drop Collagenase (Santyl) 0 gm TOP DAILY [facility] Last Admin: 03/08/17 10:50 Dose: Not Given Dextrose (Dextrose 50% Inj) 0 ml IV STAT PRN; Protocol PRN Reason: Hyglycemia Protocol Dextrose (Glutose 15) 0 gm PO ONCE PRN; Protocol PRN Reason: Hypoglycemia Protocol Epoetin Maxwell (Procrit) 10,000 unit IV TTS [facility] Last Admin: 03/07/17 11:29 Dose: 10,000 unit Ergocalciferol (Drisdol 50,000 Intl Units Cap) 1 cap PO QWK [facility] Last Admin: 03/05/17 14:54 Dose: 1 cap Furosemide (Lasix) 40 mg PO DAILY [facility] Last Admin: 03/08/17 10:49 Dose: 40 mg Glucagon (Glucagen Diagnostic Kit) 0 mg IM STAT PRN; Protocol PRN Reason: Hypoglycemia Protocol Heparin Sodium (Porcine) (Heparin) 5,000 units SC Q8 [facility] Last Admin: 03/08/17 04:59 Dose: 5,000 units Heparin Sodium (Porcine) (Heparin) 3,700 units IVP TTS [facility] Stop: 03/24/17 23:59 Last Admin: 03/07/17 11:20 Dose: 3,700 units Hydralazine HCl (Apresoline) 25 mg PO BID [facility] Last Admin: 03/08/17 10:49 Dose: 25 mg Hydromorphone HCl (Dilaudid) 0.5 mg IVP Q6H PRN PRN Reason: Pain, severe (8-10) Last Admin: 03/08/17 10:50 Dose: 0.5 mg Tigecycline 50 mg/ Sodium (Chloride) 100 mls @ 100 mls/hr IVPB Q12H [facility] Last Admin: 03/08/17 08:33 Dose: 100 mls/hr Fluconazole (Diflucan Iv 200 Mg/100 Ml Ns) 100 mls @ 100 mls/hr IVPB DAILY [facility] Last Admin: 03/08/17 11:03 Dose: 100 mls/hr Sodium Chloride 35 meq/Potassium Chloride 30 meq/Magnesium Sulfate 6 meq/ Calcium Gluconate 4.5 meq/Heparin Sodium (Porcine) 1,000 units/ Amino Acids 1, 035.9052 mls @ 63 mls/hr IV .[id number] [facility] Stop: 03/08/17 18:00 Last Admin: 03/08/17 11:03 Dose: 63 mls/hr Sodium Chloride 35 meq/Potassium Chloride 30 meq/Magnesium Sulfate 6 meq/ Calcium Gluconate 4.5 meq/Heparin Sodium (Porcine) 1,000 units/ Amino Acids 1, 035.9052 mls @ 63 mls/hr IV .[id number] ONE Stop: 03/09/17 10:26 Sodium Chloride 35 meq/Potassium Chloride 30 meq/Magnesium Sulfate 6 meq/ Calcium Gluconate 4.5 meq/Heparin Sodium (Porcine) 1,000 units/ Amino Acids 1, 035.9052 mls @ 63 mls/hr IV .[id number] [facility] Stop: 03/09/17 17:59 Insulin Glargine (Lantus) [address] [facility] Last Admin: 03/07/17 21:03 Dose: 25 unit Insulin Human Regular (Novolin R) 0 unit SC [facility] PRN Reason: Protocol Last Admin: 03/08/17 08:33 Dose: 12 unit Latanoprost (Xalatan Opht) 0.02 ml OU HS [facility] Last Admin: 03/07/17 21:13 Dose: Not Given Losartan Potassium (Cozaar) 100 mg PO DAILY [facility] Last Admin: 03/08/17 10:49 Dose: 100 mg Pantoprazole Sodium (Protonix Inj) 40 mg IVP Q12H [facility] Last Admin: 03/08/17 04:26 Dose: 40 mg Rosuvastatin Calcium (Crestor) 10 mg PO HS [facility] Last Admin: 03/07/17 21:07 Dose: 10 mg Timolol Maleate (Timoptic 0.5% Ophth Soln) 1 drop OU BID [facility] Last Admin: 03/08/17 10:51 Dose: 1 drop Vitamin B Complex/Vit C/Folic Acid (Nephro-Alonzo) 1 tab PO 0800 [facility] Last Admin: 03/08/17 08:33 Dose: 1 tab - Labs Labs: 03/07/17 10:03 03/07/17 10:03 PT 12.3 SECONDS (9.7-12.2) H 02/18/17 05:30 INR 1.1 02/18/17 05:30 APTT 30 SECONDS (21-34) 02/18/17 05:30 Attending/Attestation - Attestation I have personally seen and examined this patient.: Yes I have fully participated in the care of the patient.: Yes I have reviewed all pertinent clinical information, including history, physical exam and plan: Yes Notes (Text): 03/08/17 11:53 Agree with resident note and plan of care
[2017-02-24] MEDS: (Lantus) Insulin Glargine, Recombinant SC SCH (22:30)
[2017-02-24] MEDS: Latanoprost 2.5 ml Opht Soln OU SCH (22:30)
[2017-02-25] MEDS: Thiamine 100 mg/ml Inj IV SCH ×3 (02:40→18:36)
--- NOTE | 2017-02-25 07:08 | CP.PCM.PN ---
<Piyush Segura - Last Filed: 02/25/17 17:23> Subjective - Date & Time of Evaluation Date of Evaluation: 02/25/17 Time of Evaluation: 07:50 - Subjective Subjective: PGY-[address] Myrick Patient seen and examined at bedside. Patient still has altered mental status but seems to be able to recognize her . Patient still non-verbal, making unintelligible sounds. ROS unable to ascertain. Objective - Vital Signs/Intake and Output Vital Signs (last 24 hours): Temp Pulse Resp BP Pulse Ox 98.5 F 73 20 168/81 H 94 L 02/24/17 23:15 02/25/17 04:18 02/24/17 23:15 02/24/17 23:15 02/24/17 23:15 Intake and Output: 02/25/17 02/25/17 06:59 18:59 Intake Total 200 Balance 200 - Medications Medications: Current Medications Amlodipine Besylate (Norvasc) 5 mg PO DAILY [facility] Last Admin: 02/24/17 10:52 Dose: Not Given Brimonidine Tartrate (Alphagan 0.2% Opht) 1 ml OU TID [facility] Last Admin: 02/24/17 17:43 Dose: 1 drop Bumetanide (Bumex) 1 mg PO MWF [facility] Epoetin Maxwell (Procrit) 10,000 unit IV TTS [facility] Stop: 03/03/17 10:01 Last Admin: 02/24/17 12:37 Dose: 10,000 unit Furosemide (Lasix) 40 mg PO DAILY [facility] Last Admin: 02/24/17 10:52 Dose: Not Given Heparin Sodium (Porcine) (Heparin) 3,700 units IVP TTS [facility] Last Admin: 02/24/17 12:37 Dose: 3,700 units Heparin Sodium (Porcine) (Heparin) 5,000 units SC Q8 [facility] Last Admin: 02/25/17 05:40 Dose: 5,000 units Hydralazine HCl (Apresoline) 25 mg PO BID [facility] Last Admin: 02/24/17 17:39 Dose: 25 mg Insulin Glargine (Lantus) 30 unit SC HS [facility] Last Admin: 02/24/17 22:30 Dose: 30 units Insulin Human Regular (Novolin R) 0 unit SC ACHS [facility] PRN Reason: Protocol Last Admin: 02/24/17 22:03 Dose: Not Given Ketorolac Tromethamine (Toradol) 30 mg IVP Q6 PRN PRN Reason: Pain, moderate (4-7) Last Admin: 02/22/17 13:40 Dose: 30 mg Latanoprost (Xalatan Opht) 0.02 ml OU HS [facility] Last Admin: 02/24/17 22:30 Dose: 0.02 ml Losartan Potassium (Cozaar) 100 mg PO DAILY [facility] Last Admin: 02/24/17 14:05 Dose: 100 mg Metronidazole (Flagyl) 500 mg PO Q8 [facility] Last Admin: 02/25/17 05:40 Dose: 500 mg Rosuvastatin Calcium (Crestor) 10 mg PO HS [facility] Last Admin: 02/24/17 22:29 Dose: 10 mg Thiamine HCl (Vitamin B1 Inj) 100 mg IV Q8H [facility] Last Admin: 02/25/17 02:40 Dose: 100 mg Timolol Maleate (Timoptic 0.5% Ophth Soln) 1 drop OU BID [facility] Last Admin: 02/24/17 17:39 Dose: 1 drop Vancomycin HCl (Vancocin (Oral Or Rectal Use)) 125 mg PO QID [facility] Last Admin: 02/24/17 22:30 Dose: 125 mg - Labs Labs: 02/24/17 10:03 02/24/17 10:03 PT 12.3 SECONDS (9.7-12.2) H 02/18/17 05:30 INR 1.1 02/18/17 05:30 APTT 30 SECONDS (21-34) 02/18/17 05:30 - Constitutional Appears: No Acute Distress - Head Exam Head Exam: ATRAUMATIC, NORMOCEPHALIC - Eye Exam Eye Exam: EOMI, PERRL - ENT Exam ENT Exam: Mucous Membranes Moist - Respiratory Exam Respiratory Exam: Clear to Ausculation Bilateral. absent: Rales, Rhonchi, Wheezes - Cardiovascular Exam Cardiovascular Exam: REGULAR RHYTHM, +S1, +S2 - GI/Abdominal Exam GI & Abdominal Exam: Soft, Normal Bowel Sounds. absent: Tenderness - Extremities Exam Extremities Exam: absent: Calf Tenderness, Pedal Edema Additional comments: Chronic venous stasis changes bilaterally in the legs Left foot ulcer with 10x5 cm eschar spanning lateral plantar surface- placed in prevalon boot - Neurological Exam Neurological Exam: Altered, Awake Additional comments: Moving all 4 extremities. Following basic commands. - Skin Skin Exam: Dry, Pallor Assessment and Plan - Assessment and Plan (Free Text) Plan: Non-Healing Left Heel Ulcer Podiatry consult - Dr. Avery, help appreciated Infectious Disease Dr. Wellington consulted, help appreciated. Dr. Broussard on board, help appreciated. Low ext arterial duplex (02/04/17): R- occlusion R post tib artery, 50-75% stenosis right mid popliteal & proximal anterior tib arteries L- occlusion of left post tib artery, >75% stenosis left proximal ant tibial artery, 50-75% stenosis left distal SFA & proximal popliteal a. Vancomycin 1000 mg IV MWF [facility] D/C'ed on 02/22/17 Cefepime 1 gm IV Q24H 02/18/17 to 02/23/17 Zyvox 600 mg PO BID started 02/22/17 Abdominal Angiography 02/19/17: Severe bilateral lower extremity arterial runoff with 1 vessel likely remaining patent at the right. None is continuously patent at the left lower extremity [id number]. Please see discussion above. Widely patent abdominal aorta and iliac arterial system with moderate right and [id number] left femoral arterial disease. Severe bilateral popliteal artery arterial disease. Dr. Avery recommended Left BKA given his physical exam findings. Dr. Broussard also recommends the left BKA. He stated that even if the gangrenous portion is removed, it will not heal regardless of revascularization. * As of 02/25/17, the patient's family has decided for her to stay and have Dr. Broussard clean the wound and improve the circulation in the leg. Before this, they were adamant about getting the patient to [facility] for hyperbaric therapy to try to salvage the leg. They still do not wish for amputation at this time. C. Diff C.Diff studies positive Patient on isolation contact precaution Vancomycin 125 mg PO QID started Dr. Wellington added Flagyl 500 mg IV Q8H switched to PO on 02/23/[address] Head negative for Acute Territorial Infarction Patient found hypoglycemic by both and EMS with symptoms that suggest seizure episode. Patient is a poorly controlled diabetic. Monitor Accuchecks qACHS and Q4H Patient likely had an episode of neuroglycopenia and currently in post-ictal state. Due to post-ictal state, decision made to avoid narcotic pain medications. NPO for now since patient failed multiple bedside swallow evaluation. [employer] saw her on date of admission but patient was too lethargic for proper evaluation. [employer] performed successful bedside swallow eval and recommended Pureed diet with thin liquids. Home PO meds restarted. Neurology consult Dr. Tanisha Aguirre, help appreciated. Thiamine 100 mg Q8H Could not get brain MRI which was neuro's recommendation due to 3 previous attempts where patient was moving too much. We do not wish to further sedate the patient due to her current mental state, so instead a repeat CT Head without contrast was done on 02/23/17. This CT head did not demonstrate any acute hemorrhagic or ischemic pathology. History of End Stage Renal Disease On HD T,,S Dr. Ambrose nephrology consult. Leukocytosis Currently downtrending Patient given steroids on prior admission. Per chart review, patient received dose of solumedrol 40 mg IV on 02/13 and 02/14 ABG lactate 0.7 Procalcitonin 1.43 Will continue to trend for now History of hypertension Lopressor 5 mg IV one time dose given. For now, we are wary of using IV antihypertensive medications because the patient is in a fragile state. We requested but were unable to attain ICU monitoring. PO Home medications resumed * Norvasc 5 mg PO daily * Losartan 100 mg PO daily * Furosemide 40 mg PO daily * Held Bumex for now Anemia of Chronic Disease H/H 11.4/37 on admission Likely secondary to ESRD Hemoglobin dropped from 11.[address] Ambrose put for IV ferlicet 125 mg and Procrit 10,000 units IV Diabetes Accuchecks qACHS and Q4H for now RISS Restarted Home Lantus 30 units SC HS Prophylactic Measures SCDs Heparin 5000 units SC Q8H Decision made to avoid anticoagulation due to concern of possible evolving brain bleed or CT occult bleed, but this has been ruled out with a follow up CT 1:1 observation due to agitation. Patient tries to get out of bed. Fall precautions Disposition: This patient has a very poor prognosis. The family wishes to try to save the leg despite multiple professional opinions on the necessity of an amputation. We have asked Dr. Broussard to improve the circulation in the foot, to debride the wound, and place a wound vac per family's wishes. Case DW Dr. Ramez Segura PGY-1 <Benson Myrick Jr. - Last Filed: 03/08/17 11:55> Objective - Vital Signs/Intake and Output Vital Signs (last 24 hours): Temp Pulse Resp BP Pulse Ox 97.9 F 76 20 166/69 H 98 03/08/17 08:12 03/08/17 08:12 03/08/17 08:12 03/08/17 10:49 03/08/17 08:12 Intake and Output: 03/08/17 03/08/17 06:59 18:59 Intake Total 770 Balance 770 - Medications Medications: Current Medications Acetaminophen (Tylenol 325mg Tab) 650 mg PO Q6 PRN PRN Reason: Pain, Mild (1-3) Last Admin: 03/07/17 18:20 Dose: 650 mg Amlodipine Besylate (Norvasc) 5 mg PO DAILY [facility] Last Admin: 03/08/17 10:50 Dose: 5 mg Ascorbic Acid (Vitamin C 500 Mg Tab) 500 mg PO DAILY [facility] Last Admin: 03/08/17 10:49 Dose: 500 mg Brimonidine Tartrate (Alphagan 0.2% Opht) 1 ml OU TID [facility] Last Admin: 03/08/17 10:52 Dose: 1 drop Collagenase (Santyl) 0 gm TOP DAILY [facility] Last Admin: 03/08/17 10:50 Dose: Not Given Dextrose (Dextrose 50% Inj) 0 ml IV STAT PRN; Protocol PRN Reason: Hyglycemia Protocol Dextrose (Glutose 15) 0 gm PO ONCE PRN; Protocol PRN Reason: Hypoglycemia Protocol Epoetin Maxwell (Procrit) 10,000 unit IV TTS [facility] Last Admin: 03/07/17 11:29 Dose: 10,000 unit Ergocalciferol (Drisdol 50,000 Intl Units Cap) 1 cap PO QWK [facility] Last Admin: 03/05/17 14:54 Dose: 1 cap Furosemide (Lasix) 40 mg PO DAILY [facility] Last Admin: 03/08/17 10:49 Dose: 40 mg Glucagon (Glucagen Diagnostic Kit) 0 mg IM STAT PRN; Protocol PRN Reason: Hypoglycemia Protocol Heparin Sodium (Porcine) (Heparin) 5,000 units SC Q8 [facility] Last Admin: 03/08/17 04:59 Dose: 5,000 units Heparin Sodium (Porcine) (Heparin) 3,700 units IVP TTS [facility] Stop: 03/24/17 23:59 Last Admin: 03/07/17 11:20 Dose: 3,700 units Hydralazine HCl (Apresoline) 25 mg PO BID [facility] Last Admin: 03/08/17 10:49 Dose: 25 mg Hydromorphone HCl (Dilaudid) 0.5 mg IVP Q6H PRN PRN Reason: Pain, severe (8-10) Last Admin: 03/08/17 10:50 Dose: 0.5 mg Tigecycline 50 mg/ Sodium (Chloride) 100 mls @ 100 mls/hr IVPB Q12H [facility] Last Admin: 03/08/17 08:33 Dose: 100 mls/hr Fluconazole (Diflucan Iv 200 Mg/100 Ml Ns) 100 mls @ 100 mls/hr IVPB DAILY [facility] Last Admin: 03/08/17 11:03 Dose: 100 mls/hr Sodium Chloride 35 meq/Potassium Chloride 30 meq/Magnesium Sulfate 6 meq/ Calcium Gluconate 4.5 meq/Heparin Sodium (Porcine) 1,000 units/ Amino Acids 1, 035.9052 mls @ 63 mls/hr IV .[id number] [facility] Stop: 03/08/17 18:00 Last Admin: 03/08/17 11:03 Dose: 63 mls/hr Sodium Chloride 35 meq/Potassium Chloride 30 meq/Magnesium Sulfate 6 meq/ Calcium Gluconate 4.5 meq/Heparin Sodium (Porcine) 1,000 units/ Amino Acids 1, 035.9052 mls @ 63 mls/hr IV .[id number] ONE Stop: 03/09/17 10:26 Sodium Chloride 35 meq/Potassium Chloride 30 meq/Magnesium Sulfate 6 meq/ Calcium Gluconate 4.5 meq/Heparin Sodium (Porcine) 1,000 units/ Amino Acids 1, 035.9052 mls @ 63 mls/hr IV .[id number] [facility] Stop: 03/09/17 17:59 Insulin Glargine (Lantus) 25 unit SC HS [facility] Last Admin: 03/07/17 21:03 Dose: 25 unit Insulin Human Regular (Novolin R) 0 unit SC ACHS [facility] PRN Reason: Protocol Last Admin: 03/08/17 08:33 Dose: 12 unit Latanoprost (Xalatan Opht) 0.02 ml OU HS [facility] Last Admin: 03/07/17 21:13 Dose: Not Given Losartan Potassium (Cozaar) 100 mg PO DAILY [facility] Last Admin: 03/08/17 10:49 Dose: 100 mg Pantoprazole Sodium (Protonix Inj) 40 mg IVP Q12H [facility] Last Admin: 03/08/17 04:26 Dose: 40 mg Rosuvastatin Calcium (Crestor) 10 mg PO HS [facility] Last Admin: 03/07/17 21:07 Dose: 10 mg Timolol Maleate (Timoptic 0.5% Ophth Soln) 1 drop OU BID [facility] Last Admin: 03/08/17 10:51 Dose: 1 drop Vitamin B Complex/Vit C/Folic Acid (Nephro-Alonzo) 1 tab PO 0800 [facility] Last Admin: 03/08/17 08:33 Dose: 1 tab - Labs Labs: 03/07/17 10:03 03/07/17 10:03 PT 12.3 SECONDS (9.7-12.2) H 02/18/17 05:30 INR 1.1 02/18/17 05:30 APTT 30 SECONDS (21-34) 02/18/17 05:30 Attending/Attestation - Attestation I have personally seen and examined this patient.: Yes I have fully participated in the care of the patient.: Yes I have reviewed all pertinent clinical information, including history, physical exam and plan: Yes Notes (Text): 03/08/17 11:55 Agree with resident note and plan of care
[2017-02-25 07:09] LABS: BASO # 0.2 K/uL (0.0-0.2); BASO % 0.6 % (0.0-2.0); EOS # 0.5 K/uL (0.0-0.7); EOS % 1.7 % (0.0-4.0); HEMATOCRIT 33.9 % (34.0-47.0); LYMPH # 1.7 K/uL (1.0-4.3); LYMPH % 5.6 % (20.0-40.0); MEAN CELL VOLUME 88.8 fL (81.0-99.0); MEAN CORPUSCULAR HEMOGLOBIN 28.4 pg (27.0-31.0); MEAN CORPUSCULAR HGB CONC 31.9 g/dL (33.0-37.0); MEAN PLATELET VOLUME 10.3 fL (7.2-11.7); MONO # 1.9 K/uL (0.0-0.8); MONO % 6.4 % (0.0-10.0); NRBC % 0.1 % (0.0-2.0); PLATELET COUNT 236 K/uL (130-400); RED CELL DISTRIBUTION WIDTH 17.8 % (11.5-14.5); WHITE BLOOD COUNT 29.6 K/uL (4.8-10.8)
[2017-02-25 07:21] LABS: POTASSIUM 3.8 mmol/L (3.6-5.2)
[2017-02-25 07:24] LABS: ALB/GLOB RATIO 0.8 (1.0-2.1); BILIRUBIN,TOTAL 0.5 mg/dL (0.2-1.3); PHOSPHOROUS 3.3 mg/dL (2.5-4.5); TOTAL PROTEIN 6.2 g/dL (6.3-8.3)
[2017-02-25 07:25] LABS: CALCIUM 8.1 mg/dl (8.6-10.4); MAGNESIUM 1.9 mg/dL (1.6-2.3)
[2017-02-25] MEDS: (Novolin R) Insulin Human Regular 100 units/ml vial SC SCH ×3 (08:34→17:28)
[2017-02-25 08:51] LABS: EOSINOPHIL 3 % (0-4); NEUTROPHIL 85 % (50-75); NUCLEATED RED BLOOD CELL 1 % (0-0); TOTAL CELLS COUNTED 100
[2017-02-25] MEDS: Brimonidine 0.2% Opth Sol (5ml) OU SCH ×3 (10:15→18:43)
[2017-02-25] MEDS: Vancomycin 125 MG/5 ML SOLN (ORAL/RECTAL) PO SCH ×4 (10:17→21:30)
--- NOTE | 2017-02-25 16:31 | CP.PCM.PN ---
Subjective - Date & Time of Evaluation Date of Evaluation: 02/25/17 Time of Evaluation: 16:30 - Subjective Subjective: will plan angiogram for PM Objective - Vital Signs/Intake and Output Vital Signs (last 24 hours): Temp Pulse Resp BP Pulse Ox 98 F 65 20 111/46 L 95 02/25/17 16:00 02/25/17 16:00 02/25/17 16:00 02/25/17 16:00 02/25/17 16:00 Intake and Output: 02/25/17 02/25/17 06:59 18:59 Intake Total 200 100 Balance 200 100 - Medications Medications: Current Medications Amlodipine Besylate (Norvasc) 5 mg PO DAILY [facility] Last Admin: 02/25/17 10:17 Dose: Not Given Brimonidine Tartrate (Alphagan 0.2% Opht) 1 ml OU TID [facility] Last Admin: 02/25/17 14:02 Dose: 1 drop Bumetanide (Bumex) 1 mg PO [facility] Epoetin Maxwell (Procrit) 10,000 unit IV TTS [facility] Stop: 03/03/17 10:01 Last Admin: 02/24/17 12:37 Dose: 10,000 unit Furosemide (Lasix) 40 mg PO DAILY [facility] Last Admin: 02/25/17 10:16 Dose: Not Given Heparin Sodium (Porcine) (Heparin) 3,700 units IVP TTS [facility] Last Admin: 02/24/17 12:37 Dose: 3,700 units Heparin Sodium (Porcine) (Heparin) 5,000 units SC Q8 [facility] Last Admin: 02/25/17 14:01 Dose: 5,000 units Hydralazine HCl (Apresoline) 25 mg PO BID [facility] Last Admin: 02/25/17 10:15 Dose: Not Given Insulin Glargine (Lantus) 30 unit SC HS [facility] Last Admin: 02/24/17 22:30 Dose: 30 units Insulin Human Regular (Novolin R) 0 unit SC ACHS [facility] PRN Reason: Protocol Last Admin: 02/25/17 11:58 Dose: Not Given Ketorolac Tromethamine (Toradol) 30 mg IVP Q6 PRN PRN Reason: Pain, moderate (4-7) Last Admin: 02/25/17 16:11 Dose: 30 mg Latanoprost (Xalatan Opht) 0.02 ml OU HS [facility] Last Admin: 02/24/17 22:30 Dose: 0.02 ml Losartan Potassium (Cozaar) 100 mg PO DAILY [facility] Last Admin: 02/25/17 10:16 Dose: Not Given Metronidazole (Flagyl) 500 mg PO Q8 [facility] Last Admin: 02/25/17 14:01 Dose: 500 mg Rosuvastatin Calcium (Crestor) 10 mg PO HS [facility] Last Admin: 02/24/17 22:29 Dose: 10 mg Thiamine HCl (Vitamin B1 Inj) 100 mg IV Q8H [facility] Last Admin: 02/25/17 10:20 Dose: 100 mg Timolol Maleate (Timoptic 0.5% Oph Sol) 1 drop OU BID [facility] Last Admin: 02/25/17 10:17 Dose: 1 drop Vancomycin HCl (Vancocin (Oral Or Rectal Use)) 125 mg PO QID [facility] Last Admin: 02/25/17 14:01 Dose: 125 mg - Labs Labs: 02/25/17 06:54 02/25/17 06:54 PT 12.3 SECONDS (9.7-12.2) H 02/18/17 05:30 INR 1.1 02/18/17 05:30 APTT 30 SECONDS (21-34) 02/18/17 05:30
--- NOTE | 2017-02-25 18:39 | CP.PCM.PN ---
Subjective - Date & Time of Evaluation Date of Evaluation: 02/25/17 Time of Evaluation: 08:00 - Subjective Subjective: remains confused for angio in am refusing BKA risks of worsening colitis / c diff explained has MDRO's from wound will start Tygacil if OK with Dr figueroa poor prognosis Objective - Vital Signs/Intake and Output Vital Signs (last 24 hours): Temp Pulse Resp BP Pulse Ox 98 F 65 20 111/46 L 95 02/25/17 16:00 02/25/17 16:00 02/25/17 16:00 02/25/17 16:00 02/25/17 16:00 Intake and Output: 02/25/17 02/25/17 06:59 18:59 Intake Total 200 100 Balance 200 100 - Medications Medications: Current Medications Amlodipine Besylate (Norvasc) 5 mg PO DAILY [facility] Last Admin: 02/25/17 10:17 Dose: Not Given Brimonidine Tartrate (Alphagan 0.2% Opht) 1 ml OU TID [facility] Last Admin: 02/25/17 14:02 Dose: 1 drop Bumetanide (Bumex) 1 mg PO F [facility] Epoetin Maxwell (Procrit) 10,000 unit IV TTS [facility] Stop: 03/03/17 10:01 Last Admin: 02/24/17 12:37 Dose: 10,000 unit Furosemide (Lasix) 40 mg PO DAILY [facility] Last Admin: 02/25/17 10:16 Dose: Not Given Heparin Sodium (Porcine) (Heparin) 3,700 units IVP TTS [facility] Last Admin: 02/24/17 12:37 Dose: 3,700 units Heparin Sodium (Porcine) (Heparin) 5,000 units SC Q8 [facility] Last Admin: 02/25/17 14:01 Dose: 5,000 units Hydralazine HCl (Apresoline) 25 mg PO BID [facility] Last Admin: 02/25/17 18:34 Dose: 25 mg Insulin Glargine (Lantus) 30 unit SC HS [facility] Last Admin: 02/24/17 22:30 Dose: 30 units Insulin Human Regular (Novolin R) 0 unit SC ACHS [facility] PRN Reason: Protocol Last Admin: 02/25/17 17:28 Dose: Not Given Ketorolac Tromethamine (Toradol) 30 mg IVP Q6 PRN PRN Reason: Pain, moderate (4-7) Last Admin: 02/25/17 16:11 Dose: 30 mg Latanoprost (Xalatan Opht) 0.02 ml OU [facility] Last Admin: 02/24/17 22:30 Dose: 0.02 ml Losartan Potassium (Cozaar) 100 mg PO DAILY [facility] Last Admin: 02/25/17 10:16 Dose: Not Given Metronidazole (Flagyl) 500 mg PO Q8 [facility] Last Admin: 02/25/17 14:01 Dose: 500 mg Rosuvastatin Calcium (Crestor) 10 mg PO HS [facility] Last Admin: 02/24/17 22:29 Dose: 10 mg Thiamine HCl (Vitamin B1 Inj) 100 mg IV Q8H [facility] Last Admin: 02/25/17 18:36 Dose: 100 mg Timolol Maleate (Timoptic 0.5% Oph Soln) 1 drop OU BID [facility] Last Admin: 02/25/17 10:17 Dose: 1 drop Vancomycin HCl (Vancocin (Oral Or Rectal Use)) 125 mg PO QID [facility] Last Admin: 02/25/17 18:36 Dose: 125 mg - Labs Labs: 02/25/17 06:54 02/25/17 06:54 PT 12.3 SECONDS (9.7-12.2) H 02/18/17 05:30 INR 1.1 02/18/17 05:30 APTT 30 SECONDS (21-34) 02/18/17 05:30 Assessment and Plan (1) Change in mental status Status: Acute (2) End stage renal disease on dialysis Status: Acute (3) Heel ulcer Status: Acute (4) IDDM (insulin dependent diabetes mellitus) Status: Chronic
[2017-02-25] MEDS: Latanoprost 2.5 ml Opht Soln OU SCH (22:02)
[2017-02-25] MEDS: (Lantus) Insulin Glargine, Recombinant SC SCH (22:34)
--- NOTE | 2017-02-25 23:17 | CP.PCM.PN ---
Subjective - Date & Time of Evaluation Date of Evaluation: 02/25/17 Time of Evaluation: 15:00 - Subjective Subjective: SEEN ON RENAL F/U ON HD T T S REMAINS WITH EXPRESIVE APHASIA PT DRUNK ENSURE AND WATER FROM THE BOTTLE .. SWALLOWIG WAS GOOD .. NO CHOKING APPETITE IS POOR PER ALL ABOVE EMR REVIEWED THE ACTIVE PROBLEM IS THE L HEEL ULCER AND SEVERE PAD Objective - Vital Signs/Intake and Output Vital Signs (last 24 hours): Temp Pulse Resp BP Pulse Ox 98 F 65 20 111/46 L 95 02/25/17 16:00 02/25/17 16:00 02/25/17 16:00 02/25/17 16:00 02/25/17 16:00 Intake and Output: 02/25/17 02/26/17 18:59 06:59 Intake Total 100 Balance 100 - Medications Medications: Current Medications Amlodipine Besylate (Norvasc) 5 mg PO DAILY [facility] Last Admin: 02/25/17 10:17 Dose: Not Given Brimonidine Tartrate (Alphagan 0.2% Opht) 1 ml OU TID [facility] Last Admin: 02/25/17 18:43 Dose: 1 drop Bumetanide (Bumex) 1 mg PO MWF [facility] Epoetin Maxwell (Procrit) 10,000 unit IV TTS [facility] Stop: 03/03/17 10:01 Last Admin: 02/24/17 12:37 Dose: 10,000 unit Furosemide (Lasix) 40 mg PO DAILY [facility] Last Admin: 02/25/17 10:16 Dose: Not Given Heparin Sodium (Porcine) (Heparin) 3,700 units IVP TTS [facility] Last Admin: 02/24/17 12:37 Dose: 3,700 units Heparin Sodium (Porcine) (Heparin) 5,000 units SC Q8 [facility] Last Admin: 02/25/17 22:34 Dose: 5,000 units Hydralazine HCl (Apresoline) 25 mg PO BID [facility] Last Admin: 02/25/17 18:34 Dose: 25 mg Tigecycline 50 mg/ Sodium (Chloride) 100 mls @ 100 mls/hr IVPB Q12H [facility] Insulin Glargine (Lantus) 30 unit SC HS [facility] Last Admin: 02/25/17 22:34 Dose: Not Given Insulin Human Regular (Novolin R) 0 unit SC ACHS [facility] PRN Reason: Protocol Last Admin: 02/25/17 17:28 Dose: Not Given Ketorolac Tromethamine (Toradol) 30 mg IVP Q6 PRN PRN Reason: Pain, moderate (4-7) Last Admin: 02/25/17 16:11 Dose: 30 mg Latanoprost (Xalatan Opht) 0.02 ml OU HS [facility] Last Admin: 02/24/17 22:30 Dose: 0.02 ml Losartan Potassium (Cozaar) 100 mg PO DAILY [facility] Last Admin: 02/25/17 10:16 Dose: Not Given Metronidazole (Flagyl) 500 mg PO Q8 [facility] Last Admin: 02/25/17 22:18 Dose: 500 mg Rosuvastatin Calcium (Crestor) 10 mg PO HS [facility] Last Admin: 02/25/17 22:18 Dose: 10 mg Thiamine HCl (Vitamin B1 Inj) 100 mg IV Q8H [facility] Last Admin: 02/25/17 18:36 Dose: 100 mg [facility]ol [facility] 1 drop OU BID [facility] Last Admin: 02/25/17 18:43 Dose: 1 drop Vancomycin HCl (Vancocin (Oral Or Rectal Use)) 125 mg PO QID [facility] Last Admin: 02/25/17 18:36 Dose: 125 mg - Labs Labs: 02/25/17 06:54 02/25/17 06:54 PT 12.3 SECONDS (9.7-12.2) H 02/18/17 05:30 INR 1.1 02/18/17 05:30 APTT 30 SECONDS (21-34) 02/18/17 05:30 Assessment and Plan - Assessment and Plan (Free Text) Assessment: ESRD ON HD T T S .. TO BE C/O ANEMIA OF CKD .. H/H STABLE .. ON EPO + FERRLICIT L HEEL ULCER AND PAD .. PT AND REFUSING BKA MULTIPLE CO MORBIDITIES P : ADD ELLIOT ALYSE POQD D/C THIAMIN D/C NORVASC .. BP S LOW
[2017-02-26] MEDS: (Novolin R) Insulin Human Regular 100 units/ml vial SC SCH ×5 (04:35→21:18)
--- NOTE | 2017-02-26 07:08 | CP.PCM.PN ---
<Tremaine Seguracitlalli Garcia - Last Filed: 02/26/17 19:19> Subjective - Date & Time of Evaluation Date of Evaluation: 02/26/17 Time of Evaluation: 07:30 - Subjective Subjective: PGY-[address] Myrick Patient seen and examined at bedside. Patient still has altered mental status but seems to be able to recognize various visiting family members. Patient still non-verbal, making unintelligible sounds. ROS unable to ascertain. Patient is for aortogram later today. Objective - Vital Signs/Intake and Output Vital Signs (last 24 hours): Temp Pulse Resp BP Pulse Ox 97.6 F 80 20 184/64 H 97 02/25/17 23:15 02/26/17 01:20 02/25/17 23:15 02/26/17 00:19 02/25/17 23:15 - Medications Medications: Current Medications Ascorbic Acid (Vitamin C 500 Mg Tab) 500 mg PO DAILY [facility] Brimonidine Tartrate (Alphagan 0.2% Opht) 1 ml OU TID [facility] Last Admin: 02/25/17 18:43 Dose: 1 drop Epoetin Maxwell (Procrit) 10,000 unit IV TTS [facility] Stop: 03/03/17 10:01 Last Admin: 02/24/17 12:37 Dose: 10,000 unit Ergocalciferol (Calcidol) 0 iu PO QWK [facility] Stop: 03/04/17 23:24 Furosemide (Lasix) 40 mg PO DAILY [facility] Last Admin: 02/25/17 10:16 Dose: Not Given Heparin Sodium (Porcine) (Heparin) 3,700 units IVP TTS [facility] Last Admin: 02/24/17 12:37 Dose: 3,700 units Heparin Sodium (Porcine) (Heparin) 5,000 units SC Q8 [facility] Last Admin: 02/25/17 22:34 Dose: 5,000 units Hydralazine HCl (Apresoline) 25 mg PO BID [facility] Last Admin: 02/25/17 18:34 Dose: 25 mg Tigecycline 50 mg/ Sodium (Chloride) 100 mls @ 100 mls/hr IVPB Q12H [facility] Insulin Glargine (Lantus) 30 unit SC HS [facility] Last Admin: 02/25/17 22:34 Dose: Not Given Insulin Human Regular (Novolin R) 0 unit SC ACHS [facility] PRN Reason: Protocol Last Admin: 02/26/17 04:35 Dose: Not Given Ketorolac Tromethamine (Toradol) 30 mg IVP Q6 PRN PRN Reason: Pain, moderate (4-7) Last Admin: 02/25/17 16:11 Dose: 30 mg Latanoprost (Xalatan Opht) 0.02 ml OU HS [facility] Last Admin: 02/25/17 22:02 Dose: 0.02 ml Losartan Potassium (Cozaar) 100 mg PO DAILY [facility] Last Admin: 02/25/17 10:16 Dose: Not Given Metronidazole (Flagyl) 500 mg PO Q8 [facility] Last Admin: 02/26/17 06:06 Dose: Not Given Rosuvastatin Calcium (Crestor) 10 mg PO HS [facility] Last Admin: 02/25/17 22:18 Dose: 10 mg Timolol Maleate (Timoptic 0.5% Oph Soln) 1 drop OU BID [facility] Last Admin: 02/25/17 18:43 Dose: 1 drop Vancomycin HCl (Vancocin (Oral Or Rectal Use)) 125 mg PO QID [facility] Last Admin: 02/25/17 21:30 Dose: 125 mg Vitamin B Complex/Vit C/Folic Acid (Nephro-Alonzo) 1 tab PO 0800 [facility] - Labs Labs: 02/25/17 06:54 02/25/17 06:54 PT 12.3 SECONDS (9.7-12.2) H 02/18/17 05:30 INR 1.1 02/18/17 05:30 APTT 30 SECONDS (21-34) 02/18/17 05:30 - Constitutional Appears: No Acute Distress - Head Exam Head Exam: ATRAUMATIC, NORMOCEPHALIC - Eye Exam Eye Exam: EOMI, PERRL - ENT Exam ENT Exam: Mucous Membranes Moist - Respiratory Exam Respiratory Exam: Clear to Ausculation Bilateral. absent: Rales, Rhonchi, Wheezes - Cardiovascular Exam Cardiovascular Exam: REGULAR RHYTHM, +S1, +S2 - GI/Abdominal Exam GI & Abdominal Exam: Soft, Normal Bowel Sounds. absent: Tenderness - Extremities Exam Extremities Exam: absent: Calf Tenderness, Pedal Edema Additional comments: Chronic venous stasis changes bilaterally in the legs Left foot ulcer with 10x5 cm eschar spanning lateral plantar surface- placed in prevalon boot - Neurological Exam Neurological Exam: Altered, Awake Additional comments: Moving all 4 extremities. Following basic commands. - Skin Skin Exam: Dry, Pallor Assessment and Plan - Assessment and Plan (Free Text) Plan: Non-Healing Left Heel Ulcer Podiatry consult - Dr. Avery, help appreciated Infectious Disease Dr. Wellington consulted, help appreciated. Dr. Broussard on board, help appreciated. Low ext arterial duplex (02/04/17): R- occlusion R post tib artery, 50-75% stenosis right mid popliteal & proximal anterior tib arteries L- occlusion of left post tib artery, >75% stenosis left proximal ant tibial artery, 50-75% stenosis left distal SFA & proximal popliteal a. Vancomycin 1000 mg IV MWF [facility] D/C'ed on 02/22/17 Cefepime 1 gm IV Q24H 02/18/17 to 02/23/17 Zyvox 600 mg PO BID started 02/22/17-02/23/17 Tygacil 100 mg loading dose on 02/25/17 and then continued as Tygacil 50 mg Q12H Abdominal Angiography 02/19/17: Severe bilateral lower extremity arterial runoff with 1 vessel likely remaining patent at the right. None is continuously patent at the left lower extremity [id number]. Please see discussion above. Widely patent abdominal aorta and iliac arterial system with moderate right and [id number] left femoral arterial disease. Severe bilateral popliteal artery arterial disease. Dr. Avery recommended Left BKA given his physical exam findings. Dr. Broussard also recommends the left BKA. He stated that even if the gangrenous portion is removed, it will not heal regardless of revascularization. * As of 02/25/17, the patient's family has decided for her to stay and have Dr. Broussard clean the wound and improve the circulation in the leg. Before this, they were adamant about getting the patient to [facility] for hyperbaric therapy to try to salvage the leg. They still do not wish for amputation at this time. 02/26/17: Patient underwent aortofemoral angiogram via right groin with selective catheterization of left anterior femoral artery. Balloon angioplasty of popliteal artery. Pathway arthrectomy and balloon angioplasty of anterior tibial artery. Patient NPO after midnight for possible debridement of wound tomorrow. C. Diff C.Diff studies positive Patient on isolation contact precaution Vancomycin 125 mg PO QID started Dr. Wellington added Flagyl 500 mg IV Q8H switched to PO on 02/23/[address] Head negative for Acute Territorial Infarction Patient found hypoglycemic by both and EMS with symptoms that suggest seizure episode. Patient is a poorly controlled diabetic. Monitor Accuchecks qACHS and Q4H Patient likely had an episode of neuroglycopenia and currently in post-ictal state. Due to post-ictal state, decision made to avoid narcotic pain medications. NPO for now since patient failed multiple bedside swallow evaluation. RN ENT saw her on date of admission but patient was too lethargic for proper evaluation. RN ENT performed successful bedside swallow eval and recommended Pureed diet with thin liquids. Home PO meds restarted. Neurology consult Dr. Tanisha Aguirre, help appreciated. Thiamine 100 mg Q8H Could not get brain MRI which was neuro's recommendation due to 3 previous attempts where patient was moving too much. We do not wish to further sedate the patient due to her current mental state, so instead a repeat CT Head without contrast was done on 02/23/17. This CT head did not demonstrate any acute hemorrhagic or ischemic pathology. History of End Stage Renal Disease On HD T,,S Dr. Ambrose nephrology consult. Leukocytosis Currently downtrending Patient given steroids on prior admission. Per chart review, patient received dose of solumedrol 40 mg IV on 02/13 and 02/14 ABG lactate 0.7 Procalcitonin 1.43 Will continue to trend for now History of hypertension Lopressor 5 mg IV one time dose given. For now, we are wary of using IV antihypertensive medications because the patient is in a fragile state. We requested but were unable to attain ICU monitoring. PO Home medications resumed * Norvasc 5 mg PO daily * Losartan 100 mg PO daily * Furosemide 40 mg PO daily * Held Bumex for now Anemia of Chronic Disease H/H 11.4/37 on admission Likely secondary to ESRD Hemoglobin dropped from 11.[address] Ambrose put for IV ferlicet 125 mg and Procrit 10,000 units IV Diabetes Accuchecks qACHS and Q4H for now RISS Restarted Home Lantus 30 units SC HS Prophylactic Measures SCDs Heparin 5000 units SC Q8H Decision made to avoid anticoagulation due to concern of possible evolving brain bleed or CT occult bleed, but this has been ruled out with a follow up CT 1:1 observation due to agitation. Patient tries to get out of bed. Fall precautions Disposition: This patient has a very poor prognosis. The family wishes to try to save the leg despite multiple professional opinions on the necessity of an amputation. We have asked Dr. Broussard to improve the circulation in the foot, to debride the wound, and place a wound vac per family's wishes. Case DW Dr. Ramez Segura PGY-1 <Benson Myrick Jr. - Last Filed: 03/08/17 11:55> Objective - Vital Signs/Intake and Output Vital Signs (last 24 hours): Temp Pulse Resp BP Pulse Ox 97.9 F 76 20 166/69 H 98 03/08/17 08:12 03/08/17 08:12 03/08/17 08:12 03/08/17 10:49 03/08/17 08:12 Intake and Output: 03/08/17 03/08/17 06:59 18:59 Intake Total 770 Balance 770 - Medications Medications: Current Medications Acetaminophen (Tylenol 325mg Tab) 650 mg PO Q6 PRN PRN Reason: Pain, Mild (1-3) Last Admin: 03/07/17 18:20 Dose: 650 mg Amlodipine Besylate (Norvasc) 5 mg PO DAILY [facility] Last Admin: 03/08/17 10:50 Dose: 5 mg Ascorbic Acid (Vitamin C 500 Mg Tab) 500 mg PO DAILY [facility] Last Admin: 03/08/17 10:49 Dose: 500 mg Brimonidine Tartrate (Alphagan 0.2% Opht) 1 ml OU TID [facility] Last Admin: 03/08/17 10:52 Dose: 1 drop Collagenase (Santyl) 0 gm TOP DAILY [facility] Last Admin: 03/08/17 10:50 Dose: Not Given Dextrose (Dextrose 50% Inj) 0 ml IV STAT PRN; Protocol PRN Reason: Hyglycemia Protocol Dextrose (Glutose 15) 0 gm PO ONCE PRN; Protocol PRN Reason: Hypoglycemia Protocol Epoetin Maxwell (Procrit) 10,000 unit IV TTS [facility] Last Admin: 03/07/17 11:29 Dose: 10,000 unit Ergocalciferol (Drisdol 50,000 Intl Units Cap) 1 cap PO QWK [facility] Last Admin: 03/05/17 14:54 Dose: 1 cap Furosemide (Lasix) 40 mg PO DAILY [facility] Last Admin: 03/08/17 10:49 Dose: 40 mg Glucagon (Glucagen Diagnostic Kit) 0 mg IM STAT PRN; Protocol PRN Reason: Hypoglycemia Protocol Heparin Sodium (Porcine) (Heparin) 5,000 units SC Q8 [facility] Last Admin: 03/08/17 04:59 Dose: 5,000 units Heparin Sodium (Porcine) (Heparin) 3,700 units IVP TTS [facility] Stop: 03/24/17 23:59 Last Admin: 03/07/17 11:20 Dose: 3,700 units Hydralazine HCl (Apresoline) 25 mg PO BID [facility] Last Admin: 03/08/17 10:49 Dose: 25 mg Hydromorphone HCl (Dilaudid) 0.5 mg IVP Q6H PRN PRN Reason: Pain, severe (8-10) Last Admin: 03/08/17 10:50 Dose: 0.5 mg Tigecycline 50 mg/ Sodium (Chloride) 100 mls @ 100 mls/hr IVPB Q12H [facility] Last Admin: 03/08/17 08:33 Dose: 100 mls/hr Fluconazole (Diflucan Iv 200 Mg/100 Ml Ns) 100 mls @ 100 mls/hr IVPB DAILY [facility] Last Admin: 03/08/17 11:03 Dose: 100 mls/hr Sodium Chloride 35 meq/Potassium Chloride 30 meq/Magnesium Sulfate 6 meq/ Calcium Gluconate 4.5 meq/Heparin Sodium (Porcine) 1,000 units/ Amino Acids 1, 035.9052 mls @ 63 mls/hr IV .[id number] [facility] Stop: 03/08/17 18:00 Last Admin: 03/08/17 11:03 Dose: 63 mls/hr Sodium Chloride 35 meq/Potassium Chloride 30 meq/Magnesium Sulfate 6 meq/ Calcium Gluconate 4.5 meq/Heparin Sodium (Porcine) 1,000 units/ Amino Acids 1, 035.9052 mls @ 63 mls/hr IV .[id number] [facility] Stop: 03/09/17 10:26 Sodium Chloride 35 meq/Potassium Chloride 30 meq/Magnesium Sulfate 6 meq/ Calcium Gluconate 4.5 meq/Heparin Sodium (Porcine) 1,000 units/ Amino Acids 1, 035.9052 mls @ 63 mls/hr IV .[id number] [facility] Stop: 03/09/17 17:59 Insulin Glargine (Lantus) 25 unit SC HS [facility] Last Admin: 03/07/17 21:03 Dose: 25 unit Insulin Human Regular (Novolin R) 0 unit SC ACHS [facility] PRN Reason: Protocol Last Admin: 03/08/17 08:33 Dose: 12 unit Latanoprost (Xalatan Opht) 0.02 ml OU HS [facility] Last Admin: 03/07/17 21:13 Dose: Not Given Losartan Potassium (Cozaar) 100 mg PO DAILY [facility] Last Admin: 03/08/17 10:49 Dose: 100 mg Pantoprazole Sodium (Protonix Inj) 40 mg IVP Q12H [facility] Last Admin: 03/08/17 04:26 Dose: 40 mg Rosuvastatin Calcium (Crestor) 10 mg PO HS [facility] Last Admin: 03/07/17 21:07 Dose: 10 mg Timolol Maleate (Timoptic 0.5% [facility]) 1 drop OU BID [facility] Last Admin: 03/08/17 10:51 Dose: 1 drop Vitamin B Complex/Vit C/Folic Acid (Nephro-Alonzo) 1 tab PO 0800 [facility] Last Admin: 03/08/17 08:33 Dose: 1 tab - Labs Labs: 03/07/17 10:03 03/07/17 10:03 PT 12.3 SECONDS (9.7-12.2) H 02/18/17 05:30 INR 1.1 02/18/17 05:30 APTT 30 SECONDS (21-34) 02/18/17 05:30 Attending/Attestation - Attestation I have personally seen and examined this patient.: Yes I have fully participated in the care of the patient.: Yes I have reviewed all pertinent clinical information, including history, physical exam and plan: Yes Notes (Text): 03/08/17 11:55 Agree with resident note and plan of care
[2017-02-26] MEDS: Multivitamin Vitamin B Complex (Nephro-Vite) Tab PO SCH (08:36)
[2017-02-26] MEDS ORDERED: Iodixanol 320 MG/ML 200 ML BOTTLE IV ONE ×2 (09:24→09:29)
[2017-02-26] MEDS ORDERED: Lidocaine 2% Inj (20ml) ONE (09:25)
[2017-02-26] MEDS: Brimonidine 0.2% Opth Sol (5ml) OU SCH ×3 (10:51→19:27)
[2017-02-26] MEDS: Ergocalciferol 50,000 Intl Units Cap PO SCH (10:51)
[2017-02-26] MEDS: Epoetin Alfa 10,000 unit/ml Dialysis IV SCH ×2 (10:52→17:19)
[2017-02-26] MEDS: Vancomycin 125 MG/5 ML SOLN (ORAL/RECTAL) PO SCH ×4 (10:54→21:17)
[2017-02-26] MEDS ORDERED: Nitroglycerin 50mg in D5W 50 MG/250 ML BOTTLE IV ONE (11:23)
[2017-02-26] MEDS ORDERED: Midazolam 2 MG/2 ML VIAL ONE (11:55)
--- NOTE | 2017-02-26 11:57 | PCM.SURG1 ---
Surgeon's Initial Post Op Note - Surgeon's Notes Surgeon: payam [employer] Consultant: 0 Type of Anesthesia: IV Sedation Anesthesia Administered By: safia Pre-Operative Diagnosis: gangrene left foot Operative Findings: severe tibial diseae. all 3 tibial vessels. anterior tibial recanalized with atherectomy and balloon angioplasty. stemotic popliteal ballooned with 4mm dcb Post-Operative Diagnosis: same Operation Performed: aortofemoral angiogram via right groin. selective catherization of left anterior femoral artery. balloon angioplasty of popliteal artery 4mm dcb. pathway atherectomy and balloon angioplasty of anterior tibial artery. perclose right groin Specimen/Specimens Removed: 0 Estimated Blood Loss: EBL {In ML}: 25 Blood Products Given: N/A Drains Used: No Drains Post-Op Condition: Good Date of Surgery/Procedure: 02/26/17 Time of Surgery/Procedure: 12:01
[2017-02-26 15:12] LABS: BASO % 0.2 % (0.0-2.0); EOS # 0.2 K/uL (0.0-0.7); EOS % 1.1 % (0.0-4.0); LYMPH # 1.2 K/uL (1.0-4.3); LYMPH % 6.2 % (20.0-40.0); MEAN CELL VOLUME 89.2 fL (81.0-99.0); MEAN CORPUSCULAR HEMOGLOBIN 28.1 pg (27.0-31.0); MEAN CORPUSCULAR HGB CONC 31.6 g/dL (33.0-37.0); MEAN PLATELET VOLUME 9.3 fL (7.2-11.7); MONO % 5.2 % (0.0-10.0); NRBC % 0.1 % (0.0-2.0); PLATELET COUNT 204 K/uL (130-400); RED CELL DISTRIBUTION WIDTH 18.9 % (11.5-14.5); WHITE BLOOD COUNT 19.1 K/uL (4.8-10.8)
[2017-02-26 15:16] LABS: POTASSIUM 3.8 mmol/L (3.6-5.2)
[2017-02-26 15:18] LABS: BILIRUBIN,TOTAL 0.4 mg/dL (0.2-1.3)
[2017-02-26 15:19] LABS: ALB/GLOB RATIO 0.8 (1.0-2.1); CALCIUM 7.5 mg/dl (8.6-10.4); PHOSPHOROUS 3.9 mg/dL (2.5-4.5); TOTAL PROTEIN 5.2 g/dL (6.3-8.3)
[2017-02-26 15:20] LABS: MAGNESIUM 1.8 mg/dL (1.6-2.3)
[2017-02-26 15:35] LABS: EOSINOPHIL 1 % (0-4); NEUTROPHIL 84 % (50-75); TOTAL CELLS COUNTED 100
[2017-02-26 15:36] LABS: LARGE PLATELETS PRESENT
--- NOTE | 2017-02-26 17:59 | CP.PCM.PN ---
Subjective - Date & Time of Evaluation Date of Evaluation: 02/26/17 Time of Evaluation: 09:00 - Subjective Subjective: s/p angioplasty iv rx in progress Objective - Vital Signs/Intake and Output Vital Signs (last 24 hours): Temp Pulse Resp BP Pulse Ox 97.5 F L 64 16 139/60 100 02/26/17 14:26 02/26/17 14:26 02/26/17 14:26 02/26/17 17:00 02/26/17 14:26 Intake and Output: 02/26/17 02/26/17 06:59 18:59 Intake Total 50 Balance 50 - Medications Medications: Current Medications Amlodipine Besylate (Norvasc) 5 mg PO DAILY [facility] Last Admin: 02/26/17 10:52 Dose: Not Given Ascorbic Acid (Vitamin C 500 Mg Tab) 500 mg PO DAILY [facility] Last Admin: 02/26/17 10:54 Dose: Not Given Brimonidine Tartrate (Alphagan 0.2% Opht) 1 ml OU TID [facility] Last Admin: 02/26/17 13:05 Dose: Not Given Epoetin Maxwell (Procrit) 10,000 unit IV TTS [facility] Stop: 03/03/17 10:01 Last Admin: 02/26/17 17:19 Dose: 10,000 unit Ergocalciferol (Drisdol 50,000 Intl Units Cap) 1 cap PO QWK [facility] Last Admin: 02/26/17 10:51 Dose: Not Given Furosemide (Lasix) 40 mg PO DAILY [facility] Last Admin: 02/26/17 10:52 Dose: Not Given Heparin Sodium (Porcine) (Heparin) 3,700 units IVP TTS [facility] Last Admin: 02/26/17 17:19 Dose: 3,700 units Heparin Sodium (Porcine) (Heparin) 5,000 units SC Q8 [facility] Last Admin: 02/25/17 22:34 Dose: 5,000 units Hydralazine HCl (Apresoline) 25 mg PO BID [facility] Last Admin: 02/26/17 10:51 Dose: Not Given Tigecycline 50 mg/ Sodium (Chloride) 100 mls @ 100 mls/hr IVPB Q12H [facility] Insulin Glargine (Lantus) 30 unit SC HS [facility] Last Admin: 02/25/17 22:34 Dose: Not Given Insulin Human Regular (Novolin R) 0 unit SC ACHS [facility] PRN Reason: Protocol Last Admin: 02/26/17 11:23 Dose: Not Given Latanoprost (Xalatan Opht) 0.02 ml OU HS [facility] Last Admin: 02/25/17 22:02 Dose: 0.02 ml Losartan Potassium (Cozaar) 100 mg PO DAILY [facility] Last Admin: 02/26/17 10:51 Dose: Not Given Metronidazole (Flagyl) 500 mg PO Q8 [facility] Last Admin: 02/26/17 13:05 Dose: Not Given Rosuvastatin Calcium (Crestor) 10 mg PO HS [facility] Last Admin: 02/25/17 22:18 Dose: 10 mg Timolol Maleate (Timoptic 0.5% Oph Soln) 1 drop OU BID [facility] Last Admin: 02/26/17 10:55 Dose: Not Given Vancomycin HCl (Vancocin (Oral Or Rectal Use)) 125 mg PO QID [facility] Last Admin: 02/26/17 13:06 Dose: Not Given Vitamin B Complex/Vit C/Folic Acid (Nephro-Alonzo) 1 tab PO 0800 [facility] Last Admin: 02/26/17 08:36 Dose: Not Given - Labs Labs: 02/26/17 15:06 02/26/17 15:06 PT 12.3 SECONDS (9.7-12.2) H 02/18/17 05:30 INR 1.1 02/18/17 05:30 APTT 30 SECONDS (21-34) 02/18/17 05:30 - Constitutional Appears: Non-toxic, Confused, Chronically Ill - Head Exam Head Exam: NORMOCEPHALIC - Eye Exam Eye Exam: PERRL - ENT Exam ENT Exam: Mucous Membranes Dry - Neck Exam Neck Exam: absent: Lymphadenopathy - Respiratory Exam Respiratory Exam: Decreased Breath Sounds - Cardiovascular Exam Cardiovascular Exam: REGULAR RHYTHM - GI/Abdominal Exam GI & Abdominal Exam: Distended, Soft Assessment and Plan (1) Change in mental status Status: Acute (2) End stage renal disease on dialysis Status: Acute (3) Heel ulcer Status: Acute (4) IDDM (insulin dependent diabetes mellitus) Status: Chronic
--- NOTE | 2017-02-26 18:24 | CP.PCM.PN ---
Subjective - Date & Time of Evaluation Date of Evaluation: 02/26/17 Time of Evaluation: 16:00 - Subjective Subjective: SEEN ON RENAL F/U S/P L LEG ANGIOGRAM/ PLASTY REMAINS WITH EXPRESIVE APHASIA ALL PREVIOUS EMR REVIEWED Objective - Vital Signs/Intake and Output Vital Signs (last 24 hours): Temp Pulse Resp BP Pulse Ox 97.6 F 69 16 145/62 97 02/26/17 17:25 02/26/17 17:25 02/26/17 17:25 02/26/17 17:25 02/26/17 17:25 Intake and Output: 02/26/17 02/26/17 06:59 18:59 Intake Total 50 Balance 50 - Medications Medications: Current Medications Amlodipine Besylate (Norvasc) 5 mg PO DAILY [facility] Last Admin: 02/26/17 10:52 Dose: Not Given Ascorbic Acid (Vitamin C 500 Mg Tab) 500 mg PO DAILY [facility] Last Admin: 02/26/17 10:54 Dose: Not Given Brimonidine Tartrate (Alphagan 0.2% Opht) 1 ml OU TID [facility] Last Admin: 02/26/17 13:05 Dose: Not Given Epoetin Maxwell (Procrit) 10,000 unit IV TTS [facility] Stop: 03/03/17 10:01 Last Admin: 02/26/17 17:19 Dose: 10,000 unit Ergocalciferol (Drisdol 50,000 Intl Units Cap) 1 cap PO QWK [facility] Last Admin: 02/26/17 10:51 Dose: Not Given Furosemide (Lasix) 40 mg PO DAILY [facility] Last Admin: 02/26/17 10:52 Dose: Not Given Heparin Sodium (Porcine) (Heparin) 3,700 units IVP TTS [facility] Last Admin: 02/26/17 17:19 Dose: 3,700 units Heparin Sodium (Porcine) (Heparin) 5,000 units SC Q8 [facility] Last Admin: 02/25/17 22:34 Dose: 5,000 units Hydralazine HCl (Apresoline) 25 mg PO BID [facility] Last Admin: 02/26/17 10:51 Dose: Not Given Tigecycline 50 mg/ Sodium (Chloride) 100 mls @ 100 mls/hr IVPB Q12H [facility] Insulin Glargine (Lantus) 30 unit SC HS [facility] Last Admin: 02/25/17 22:34 Dose: Not Given Insulin Human Regular (Novolin R) 0 unit SC ACHS [facility] PRN Reason: Protocol Last Admin: 02/26/17 11:23 Dose: Not Given Latanoprost (Xalatan Opht) 0.02 ml OU HS [facility] Last Admin: 02/25/17 22:02 Dose: 0.02 ml Losartan Potassium (Cozaar) 100 mg PO DAILY [facility] Last Admin: 02/26/17 10:51 Dose: Not Given Metronidazole (Flagyl) 500 mg PO Q8 [facility] Last Admin: 02/26/17 13:05 Dose: Not Given Rosuvastatin Calcium (Crestor) 10 mg PO HS [facility] Last Admin: 02/25/17 22:18 Dose: 10 mg [facility]olol [facility]) 1 drop OU BID [facility] Last Admin: 02/26/17 10:55 Dose: Not Given Vancomycin HCl (Vancocin (Oral Or Rectal Use)) 125 mg PO QID [facility] Last Admin: 02/26/17 13:06 Dose: Not Given Vitamin B Complex/Vit C/Folic Acid (Nephro-Alonzo) 1 tab PO 0800 [facility] Last Admin: 02/26/17 08:36 Dose: Not Given - Labs Labs: 02/26/17 15:06 02/26/17 15:06 PT 12.3 SECONDS (9.7-12.2) H 02/18/17 05:30 INR 1.1 02/18/17 05:30 APTT 30 SECONDS (21-34) 02/18/17 05:30 Assessment and Plan - Assessment and Plan (Free Text) Assessment: ESRD ON HD T T S ANEMIA OF CKD .. ON EPO S/P L LRG ANGIOPLPLASTY C/O CURRENT CARE
[2017-02-26] MEDS: (Lantus) Insulin Glargine, Recombinant SC SCH (21:18)
[2017-02-26] MEDS: Latanoprost 2.5 ml Opht Soln OU SCH (21:21)
[2017-02-27] MEDS: (Novolin R) Insulin Human Regular 100 units/ml vial SC SCH ×4 (07:40→22:07)
--- NOTE | 2017-02-27 09:41 | CP.PCM.PN ---
<Piyush Segura - Last Filed: 02/27/17 20:01> Subjective - Date & Time of Evaluation Date of Evaluation: 02/27/17 Time of Evaluation: 07:20 - Subjective Subjective: PGY-[address] Myrick Patient seen and examined at bedside. Patient still has altered mental status but seems to be able to recognize various visiting family members. Patient still non-verbal, making unintelligible sounds. ROS unable to ascertain. Patient is for possible foot ulcer debridement today. Patient is NPO but was motioning as if requesting water. It was explained to her that she cannot have anything for now due to the possibility of going to the OR today. Objective - Vital Signs/Intake and Output Vital Signs (last 24 hours): Temp Pulse Resp BP Pulse Ox 97.4 F L 75 20 141/51 L 97 02/27/17 00:00 02/27/17 00:00 02/27/17 00:00 02/27/17 00:00 02/27/17 00:00 Intake and Output: 02/27/17 02/27/17 06:59 18:59 Intake Total 100 Balance 100 - Medications Medications: Current Medications Amlodipine Besylate (Norvasc) 5 mg PO DAILY [facility] Last Admin: 02/26/17 10:52 Dose: Not Given Ascorbic Acid (Vitamin C 500 Mg Tab) 500 mg PO DAILY [facility] Last Admin: 02/26/17 10:54 Dose: Not Given Brimonidine Tartrate (Alphagan 0.2% Opht) 1 ml OU TID [facility] Last Admin: 02/26/17 19:27 Dose: 1 drop Epoetin Maxwell (Procrit) 10,000 unit IV TTS [facility] Stop: 03/03/17 10:01 Last Admin: 02/26/17 17:19 Dose: 10,000 unit Ergocalciferol (Drisdol 50,000 Intl Units Cap) 1 cap PO QWK [facility] Last Admin: 02/26/17 10:51 Dose: Not Given Furosemide (Lasix) 40 mg PO DAILY [facility] Last Admin: 02/26/17 10:52 Dose: Not Given Heparin Sodium (Porcine) (Heparin) 3,700 units IVP TTS [facility] Last Admin: 02/26/17 17:19 Dose: 3,700 units Heparin Sodium (Porcine) (Heparin) 5,000 units SC Q8 [facility] Last Admin: 02/25/17 22:34 Dose: 5,000 units Hydralazine HCl (Apresoline) 25 mg PO BID [facility] Last Admin: 02/26/17 18:00 Dose: Not Given Tigecycline 50 mg/ Sodium (Chloride) 100 mls @ 100 mls/hr IVPB Q12H [facility] Last Admin: 02/26/17 19:35 Dose: 100 mls/hr Insulin Glargine (Lantus) 30 unit SC [facility] Last Admin: 02/26/17 21:18 Dose: Not Given Insulin Human Regular (Novolin R) 0 unit SC ACHS [facility] PRN Reason: Protocol Last Admin: 02/27/17 07:40 Dose: Not Given Latanoprost (Xalatan Opht) 0.02 ml OU [facility] Last Admin: 02/26/17 21:21 Dose: 0.02 ml Losartan Potassium (Cozaar) 100 mg PO DAILY [facility] Last Admin: 02/26/17 10:51 Dose: Not Given Metronidazole (Flagyl) 500 mg PO Q8 [facility] Last Admin: 02/27/17 05:39 Dose: 500 mg Rosuvastatin Calcium (Crestor) 10 mg PO HS [facility] Last Admin: 02/26/17 21:19 Dose: Not Given Timolol Maleate (Timoptic 0.5% [facility]) 1 drop OU BID [facility] Last Admin: 02/26/17 19:28 Dose: 1 drop Vancomycin HCl (Vancocin (Oral Or Rectal Use)) 125 mg PO QID [facility] Last Admin: 02/26/17 21:17 Dose: Not Given Vitamin B Complex/Vit C/Folic Acid (Nephro-Alonzo) 1 tab PO 0800 [facility] Last Admin: 02/26/17 08:36 Dose: Not Given - Labs Labs: 02/26/17 15:06 02/26/17 15:06 PT 12.3 SECONDS (9.7-12.2) H 02/18/17 05:30 INR 1.1 02/18/17 05:30 APTT 30 SECONDS (21-34) 02/18/17 05:30 - Constitutional Appears: No Acute Distress - Head Exam Head Exam: ATRAUMATIC, NORMOCEPHALIC - Eye Exam Eye Exam: EOMI, PERRL - ENT Exam ENT Exam: Mucous Membranes Moist - Respiratory Exam Respiratory Exam: Rales (mild right upper lung field crackles but otherwise clear throughout). absent: Rhonchi, Wheezes - Cardiovascular Exam Cardiovascular Exam: REGULAR RHYTHM, +S1, +S2 - GI/Abdominal Exam GI & Abdominal Exam: Soft, Normal Bowel Sounds. absent: Tenderness - Neurological Exam Neurological Exam: Altered, Awake Additional comments: Moving all 4 extremities. Following basic commands. - Skin Skin Exam: Dry, Pallor Assessment and Plan - Assessment and Plan (Free Text) Plan: Non-Healing Left Heel Ulcer Podiatry consult - Dr. Avery, help appreciated Infectious Disease Dr. Wellington consulted, help appreciated. Dr. Broussard on board, help appreciated. Low ext arterial duplex (02/04/17): R- occlusion R post tib artery, 50-75% stenosis right mid popliteal & proximal anterior tib arteries L- occlusion of left post tib artery, >75% stenosis left proximal ant tibial artery, 50-75% stenosis left distal SFA & proximal popliteal a. [facility] 02/[facility]/17 Cefepime 1 gm IV Q24H 02/18/17 to 02/23/17 Zyvox 600 mg PO BID started 02/22/17-02/23/17 Tygacil 100 mg loading dose on 02/25/17 and then continued as Tygacil 50 mg Q12H Abdominal Angiography 02/19/17: Severe bilateral lower extremity arterial runoff with 1 vessel likely remaining patent at the right. None is continuously patent at the left lower extremity [id number]. Please see discussion above. Widely patent abdominal aorta and iliac arterial system with moderate right and [id number] left femoral arterial disease. Severe bilateral popliteal artery arterial disease. Dr. Avery recommended Left BKA given his physical exam findings. Dr. Broussard also recommends the left BKA. He stated that even if the gangrenous portion is removed, it will not heal regardless of revascularization. * As of 02/25/17, the patient's family has decided for her to stay and have Dr. Broussard clean the wound and improve the circulation in the leg. Before this, they were adamant about getting the patient to [facility] for hyperbaric therapy to try to salvage the leg. They still do not wish for amputation at this time. 02/26/17: Patient underwent aortofemoral angiogram via right groin with selective catheterization of left anterior femoral artery. Balloon angioplasty of popliteal artery. Pathway arthrectomy and balloon angioplasty of anterior tibial artery. Patient NPO after midnight for possible debridement of wound tomorrow. 02/27/17: Debridement of left foot ulcer with wound vac placed and cultures taken. C. Diff C.Diff studies positive Patient on isolation contact precaution Vancomycin 125 mg PO QID started Dr. Wellington added Flagyl 500 mg IV Q8H switched to PO on 02/23/[address] Head negative for Acute Territorial Infarction Patient found hypoglycemic by both and EMS with symptoms that suggest seizure episode. Patient is a poorly controlled diabetic. Monitor Accuchecks qACHS and Q4H Patient likely had an episode of neuroglycopenia and currently in post-ictal state. Due to post-ictal state, decision made to avoid narcotic pain medications. NPO for now since patient failed multiple bedside swallow evaluation. STAVE HEWER saw her on date of admission but patient was too lethargic for proper evaluation. STAVE HEWER performed successful bedside swallow eval and recommended Pureed diet with thin liquids. Home PO meds restarted. Neurology consult Dr. Tanisha Aguirre, help appreciated. Thiamine 100 mg Q8H Could not get brain MRI which was neuro's recommendation due to 3 previous attempts where patient was moving too much. We do not wish to further sedate the patient due to her current mental state, so instead a repeat CT Head without contrast was done on 02/23/17. This CT head did not demonstrate any acute hemorrhagic or ischemic pathology. History of End Stage Renal Disease On HD T,,S Dr. Ambrose nephrology consult. Leukocytosis Currently downtrending Patient given steroids on prior admission. Per chart review, patient received dose of solumedrol 40 mg IV on 02/13 and 02/14 ABG lactate 0.7 Procalcitonin 1.43 Will continue to trend for now History of hypertension Lopressor 5 mg IV one time dose given. For now, we are wary of using IV antihypertensive medications because the patient is in a fragile state. We requested but were unable to attain ICU monitoring. PO Home medications resumed * Norvasc 5 mg PO daily * Losartan 100 mg PO daily * Furosemide 40 mg PO daily * Held Bumex for now Anemia of Chronic Disease H/H 11.4/37 on admission Likely secondary to ESRD Hemoglobin dropped from 11.[address] Ambrose put for IV ferlicet 125 mg and Procrit 10,000 units IV Diabetes Accuchecks qACHS and Q4H for now RISS Restarted Home Lantus 30 units SC HS Prophylactic Measures SCDs Heparin 5000 units SC Q8H Decision made to avoid anticoagulation due to concern of possible evolving brain bleed or CT occult bleed, but this has been ruled out with a follow up CT 1:1 observation due to agitation. Patient tries to get out of bed. Fall precautions Disposition: This patient has a very poor prognosis. The family wishes to try to save the leg despite multiple professional opinions on the necessity of an amputation. The family initially wished for the patient to go to [facility] where hyperbaric therapy is available in order to promote healing. They wished to be cared for by their personal bench grinder Dr. Ware; however, Dr. Ware has become unavailable. So the family decided to remain at [facility] and attempt healing via vascular surgery to improve circulation and wound debridement of damaged tissue. They were repeatedly warned by multiple nurses medical assistants phlebotomists of the risks associated with refusing a BKA and attempting to salvage the foot. The family verbalized understanding of the risks but still decide against a BKA at this time. Case DW Dr. Ramez Segura PGY-1 <Benson Myrick Jr. - Last Filed: 03/08/17 11:58> Objective - Vital Signs/Intake and Output Vital Signs (last 24 hours): Temp Pulse Resp BP Pulse Ox 97.9 F 76 20 166/69 H 98 03/08/17 08:12 03/08/17 08:12 03/08/17 08:12 03/08/17 10:49 03/08/17 08:12 Intake and Output: 03/08/17 03/08/17 06:59 18:59 Intake Total 770 Balance 770 - Medications Medications: Current Medications Acetaminophen (Tylenol 325mg Tab) 650 mg PO Q6 PRN PRN Reason: Pain, Mild (1-3) Last Admin: 03/07/17 18:20 Dose: 650 mg Amlodipine Besylate (Norvasc) 5 mg PO DAILY [facility] Last Admin: 03/08/17 10:50 Dose: 5 mg Ascorbic Acid (Vitamin C 500 Mg Tab) 500 mg PO DAILY [facility] Last Admin: 03/08/17 10:49 Dose: 500 mg Brimonidine Tartrate (Alphagan 0.2% Opht) 1 ml OU TID [facility] Last Admin: 03/08/17 10:52 Dose: 1 drop Collagenase (Santyl) 0 gm TOP DAILY [facility] Last Admin: 03/08/17 10:50 Dose: Not Given Dextrose (Dextrose 50% Inj) 0 ml IV STAT PRN; Protocol PRN Reason: Hyglycemia Protocol Dextrose (Glutose 15) 0 gm PO ONCE PRN; Protocol PRN Reason: Hypoglycemia Protocol Epoetin Maxwell (Procrit) 10,000 unit IV TTS [facility] Last Admin: 03/07/17 11:29 Dose: 10,000 unit Ergocalciferol (Drisdol 50,000 Intl Units Cap) 1 cap PO QWK [facility] Last Admin: 03/05/17 14:54 Dose: 1 cap Furosemide (Lasix) 40 mg PO DAILY [facility] Last Admin: 03/08/17 10:49 Dose: 40 mg Glucagon (Glucagen Diagnostic Kit) 0 mg IM STAT PRN; Protocol PRN Reason: Hypoglycemia Protocol Heparin Sodium (Porcine) (Heparin) 5,000 units SC Q8 [facility] Last Admin: 03/08/17 04:59 Dose: 5,000 units Heparin Sodium (Porcine) (Heparin) 3,700 units IVP TTS [facility] Stop: 03/24/17 23:59 Last Admin: 03/07/17 11:20 Dose: 3,700 units Hydralazine HCl (Apresoline) 25 mg PO BID [facility] Last Admin: 03/08/17 10:49 Dose: 25 mg Hydromorphone HCl (Dilaudid) 0.5 mg IVP Q6H PRN PRN Reason: Pain, severe (8-10) Last Admin: 03/08/17 10:50 Dose: 0.5 mg Tigecycline 50 mg/ Sodium (Chloride) 100 mls @ 100 mls/hr IVPB Q12H [facility] Last Admin: 03/08/17 08:33 Dose: 100 mls/hr Fluconazole (Diflucan Iv 200 Mg/100 Ml Ns) 100 mls @ 100 mls/hr IVPB DAILY [facility] Last Admin: 03/08/17 11:03 Dose: 100 mls/hr Sodium Chloride 35 meq/Potassium Chloride 30 meq/Magnesium Sulfate 6 meq/ Calcium Gluconate 4.5 meq/Heparin Sodium (Porcine) 1,000 units/ Amino Acids 1, 035.9052 mls @ 63 mls/hr IV .[id number] [facility] Stop: 03/08/17 18:00 Last Admin: 03/08/17 11:03 Dose: 63 mls/hr Sodium Chloride 35 meq/Potassium Chloride 30 meq/Magnesium Sulfate 6 meq/ Calcium Gluconate 4.5 meq/Heparin Sodium (Porcine) 1,000 units/ Amino Acids 1, 035.9052 mls @ 63 mls/hr IV .[id number] ONE Stop: 03/09/17 10:26 Sodium Chloride 35 meq/Potassium Chloride 30 meq/Magnesium Sulfate 6 meq/ Calcium Gluconate 4.5 meq/Heparin Sodium (Porcine) 1,000 units/ Amino Acids 1, 035.9052 mls @ 63 mls/hr IV .[id number] [facility] Stop: 03/09/17 17:59 Insulin Glargine (Lantus) 25 unit SC [facility] Last Admin: 03/07/17 21:03 Dose: 25 unit Insulin Human Regular (Novolin R) 0 unit SC ACHS [facility] PRN Reason: Protocol Last Admin: 03/08/17 08:33 Dose: 12 unit Latanoprost (Xalatan Opht) 0.02 ml OU HS [facility] Last Admin: 03/07/17 21:13 Dose: Not Given Losartan Potassium (Cozaar) 100 mg PO DAILY [facility] Last Admin: 03/08/17 10:49 Dose: 100 mg Pantoprazole Sodium (Protonix Inj) 40 mg IVP Q12H [facility] Last Admin: 03/08/17 04:26 Dose: 40 mg Rosuvastatin Calcium (Crestor) 10 mg PO HS [facility] Last Admin: 03/07/17 21:07 Dose: 10 mg Timolol Maleate (Timoptic 0.5% Ophth Soln) 1 drop OU BID [facility] Last Admin: 03/08/17 10:51 Dose: 1 drop Vitamin B Complex/Vit C/Folic Acid (Nephro-Alonzo) 1 tab PO 0800 [facility] Last Admin: 03/08/17 08:33 Dose: 1 tab - Labs Labs: 03/07/17 10:03 03/07/17 10:03 PT 12.3 SECONDS (9.7-12.2) H 09/27/17 05:30 INR 1.1 02/18/17 05:30 APTT 30 SECONDS (21-34) 02/18/17 05:30 Attending/Attestation - Attestation I have personally seen and examined this patient.: Yes I have fully participated in the care of the patient.: Yes I have reviewed all pertinent clinical information, including history, physical exam and plan: Yes Notes (Text): 03/08/17 11:58 Agree with resident note and plan of care
[2017-02-27] MEDS: Vancomycin 125 MG/5 ML SOLN (ORAL/RECTAL) PO SCH ×4 (10:29→22:07)
[2017-02-27] MEDS: Multivitamin Vitamin B Complex (Nephro-Vite) Tab PO SCH (10:30)
[2017-02-27] MEDS: Brimonidine 0.2% Opth Sol (5ml) OU SCH ×3 (10:40→18:47)
[2017-02-27] MEDS ORDERED: Glucagon Recombinant 1 mg Inj IM PRN (12:44)
[2017-02-27] MEDS ORDERED: Bacitracin 150,000 UNIT in Sodium Chloride 0.9% Irrig 3,000 ML IR SCH (14:00)
[2017-02-27] MEDS ORDERED: Lactated Ringer's 1,000 ML IV ONE (14:35)
[2017-02-27] MEDS ORDERED: Propofol 10 mg/ml Inj (20 ML) ONE (14:38)
--- NOTE | 2017-02-27 15:24 | PCM.SURG1 ---
Surgeon's Initial Post Op Note - Surgeon's Notes Surgeon: Dr. Broussard [employer] Internship: Wanda Marquez Type of Anesthesia: General LMA Anesthesia Administered By: Dr. Gomez Pre-Operative Diagnosis: gangrene Operative Findings: no pus, dry gangrenous tissue Post-Operative Diagnosis: same Operation Performed: debridement, skin, subcutaneous tissue, and muscle of left foot and application of wound vac Specimen/Specimens Removed: tissue and wound culture Estimated Blood Loss: EBL {In ML}: 10 Blood Products Given: N/A Drains Used: No Drains Post-Op Condition: Fair Date of Surgery/Procedure: 02/27/17 Time of Surgery/Procedure: 15:24
[2017-02-27] MEDS ORDERED: HYDROmorphone 0.5 mg/0.5 ml ISec IVP PRN (16:11)
--- NOTE | 2017-02-27 16:14 | CP.PCM.PN ---
Subjective - Date & Time of Evaluation Date of Evaluation: 02/27/17 Time of Evaluation: 15:00 - Subjective Subjective: SEEN ON RENAL F/U NO CHANGE OF CLINICAL CONDITION ON HD T T S S/P L LEG ULCER DEBRIDENMENT Objective - Vital Signs/Intake and Output Vital Signs (last 24 hours): Temp Pulse Resp BP Pulse Ox 98.1 F 64 16 102/38 L 94 L 02/27/17 15:17 02/27/17 15:17 02/27/17 15:17 02/27/17 15:17 02/27/17 15:17 Intake and Output: 02/27/17 02/27/17 06:59 18:59 Intake Total 100 Balance 100 - Medications Medications: Current Medications Amlodipine Besylate (Norvasc) 5 mg PO DAILY [facility] Last Admin: 02/27/17 10:29 Dose: 5 mg Ascorbic Acid (Vitamin C 500 Mg Tab) 500 mg PO DAILY [facility] Last Admin: 02/27/17 10:30 Dose: 500 mg Brimonidine Tartrate (Alphagan 0.2% Opht) 1 ml OU TID [facility] Last Admin: 02/27/17 13:03 Dose: 1 drop Dextrose (Dextrose 50% Inj) 0 ml IV STAT PRN; Protocol PRN Reason: Hyglycemia Protocol Dextrose (Glutose 15) 0 gm PO ONCE PRN; Protocol PRN Reason: Hypoglycemia Protocol Epoetin Maxwell (Procrit) 10,000 unit IV TTS [facility] Stop: 03/03/17 10:01 Last Admin: 02/26/17 17:19 Dose: 10,000 unit Ergocalciferol (Drisdol 50,000 Intl Units Cap) 1 cap PO QWK [facility] Last Admin: 02/26/17 10:51 Dose: Not Given Furosemide (Lasix) 40 mg PO DAILY [facility] Last Admin: 02/27/17 10:29 Dose: 40 mg Glucagon (Glucagen Diagnostic Kit) 0 mg IM STAT PRN; Protocol PRN Reason: Hypoglycemia Protocol Heparin Sodium (Porcine) (Heparin) 3,700 units IVP TTS [facility] Last Admin: 02/26/17 17:19 Dose: 3,700 units Heparin Sodium (Porcine) (Heparin) 5,000 units SC Q8 [facility] Last Admin: 02/25/17 22:34 Dose: 5,000 units Hydralazine HCl (Apresoline) 25 mg PO BID [facility] Last Admin: 02/27/17 10:31 Dose: Not Given Tigecycline 50 mg/ Sodium (Chloride) 100 mls @ 100 mls/hr IVPB Q12H [facility] Last Admin: 02/27/17 08:45 Dose: 100 mls/hr Dextrose (Dextrose 5% In Water 1000 Ml) 1,000 mls @ 0 mls/hr IV .Q0M PRN; Protocol; Per Protocol PRN Reason: Hypoglycemia Protocol Insulin Glargine (Lantus) 30 unit SC HS [facility] Last Admin: 02/26/17 21:18 Dose: Not Given Insulin Human Regular (Novolin R) 0 unit SC ACHS [facility] PRN Reason: Protocol Last Admin: 02/27/17 13:01 Dose: 12 unit Latanoprost (Xalatan Opht) 0.02 ml OU HS [facility] Last Admin: 02/26/17 21:21 Dose: 0.02 ml Losartan Potassium (Cozaar) 100 mg PO DAILY [facility] Last Admin: 02/27/17 10:30 Dose: 100 mg Metronidazole (Flagyl) 500 mg PO Q8 [facility] Last Admin: 02/27/17 13:03 Dose: 500 mg Rosuvastatin Calcium (Crestor) 10 mg PO HS [facility] Last Admin: 02/26/17 21:19 Dose: Not Given Timolol Maleate (Timoptic 0.5% [facility]) 1 drop OU BID [facility] Last Admin: 02/27/17 10:31 Dose: 1 drop Vancomycin HCl (Vancocin (Oral Or Rectal Use)) 125 mg PO QID [facility] Last Admin: 02/27/17 13:03 Dose: 125 mg Vitamin B Complex/Vit C/Folic Acid (Nephro-Alonzo) 1 tab PO 0800 [facility] Last Admin: 02/27/17 10:30 Dose: 1 tab - Labs Labs: 02/26/17 15:06 02/26/17 15:06 PT 12.3 SECONDS (9.7-12.2) H 02/18/17 05:30 INR 1.1 02/18/17 05:30 APTT 30 SECONDS (21-34) 02/18/17 05:30 Assessment and Plan - Assessment and Plan (Free Text) Assessment: ESRD ON HD T T S ANEMIA OF CKD C/O CURRENT CARE
--- NOTE | 2017-02-27 16:47 | CP.PCM.PN ---
Subjective - Date & Time of Evaluation Date of Evaluation: 02/27/17 Time of Evaluation: 09:00 - Subjective Subjective: s/p debridement left foot with wound vac placement iv rx renewed remains confused afebrile nad Objective - Vital Signs/Intake and Output Vital Signs (last 24 hours): Temp Pulse Resp BP Pulse Ox 98.1 F 64 16 102/38 L 94 L 02/27/17 15:17 02/27/17 15:17 02/27/17 15:17 02/27/17 15:17 02/27/17 15:17 Intake and Output: 02/27/17 02/27/17 06:59 18:59 Intake Total 100 Balance 100 - Medications Medications: Current Medications Amlodipine Besylate (Norvasc) 5 mg PO DAILY [facility] Last Admin: 02/27/17 10:29 Dose: 5 mg Ascorbic Acid (Vitamin C 500 Mg Tab) 500 mg PO DAILY [facility] Last Admin: 02/27/17 10:30 Dose: 500 mg Brimonidine Tartrate (Alphagan 0.2% Opht) 1 ml OU TID [facility] Last Admin: 02/27/17 13:03 Dose: 1 drop Dextrose (Dextrose 50% Inj) 0 ml IV STAT PRN; Protocol PRN Reason: Hyglycemia Protocol Dextrose (Glutose 15) 0 gm PO ONCE PRN; Protocol PRN Reason: Hypoglycemia Protocol Epoetin Maxwell (Procrit) 10,000 unit IV TTS [facility] Stop: 03/03/17 10:01 Last Admin: 02/26/17 17:19 Dose: 10,000 unit Ergocalciferol (Drisdol 50,000 Intl Units Cap) 1 cap PO QWK [facility] Last Admin: 02/26/17 10:51 Dose: Not Given Furosemide (Lasix) 40 mg PO DAILY [facility] Last Admin: 02/27/17 10:29 Dose: 40 mg Glucagon (Glucagen Diagnostic Kit) 0 mg IM STAT PRN; Protocol PRN Reason: Hypoglycemia Protocol Heparin Sodium (Porcine) (Heparin) 3,700 units IVP TTS [facility] Last Admin: 02/26/17 17:19 Dose: 3,700 units Heparin Sodium (Porcine) (Heparin) 5,000 units SC Q8 [facility] Last Admin: 02/25/17 22:34 Dose: 5,000 units Hydralazine HCl (Apresoline) 25 mg PO BID [facility] Last Admin: 02/27/17 10:31 Dose: Not Given Hydromorphone HCl (Dilaudid) 0.5 mg IVP Q15M PRN PRN Reason: Pain, severe (8-10) Stop: 02/27/17 18:11 Tigecycline 50 mg/ Sodium (Chloride) 100 mls @ 100 mls/hr IVPB Q12H [facility] Last Admin: 02/27/17 08:45 Dose: 100 mls/hr Dextrose (Dextrose 5% In Water 1000 Ml) 1,000 mls @ 0 mls/hr IV .Q0M PRN; Protocol; Per Protocol PRN Reason: Hypoglycemia Protocol Insulin Glargine (Lantus) 30 unit SC HS [facility] Last Admin: 02/26/17 21:18 Dose: Not Given Insulin Human Regular (Novolin R) 0 unit SC ACHS [facility] PRN Reason: Protocol Last Admin: 02/27/17 13:01 Dose: 12 unit Latanoprost (Xalatan Opht) 0.02 ml OU HS [facility] Last Admin: 02/26/17 21:21 Dose: 0.02 ml Losartan Potassium (Cozaar) 100 mg PO DAILY [facility] Last Admin: 02/27/17 10:30 Dose: 100 mg Metronidazole (Flagyl) 500 mg PO Q8 [facility] Last Admin: 02/27/17 13:03 Dose: 500 mg Rosuvastatin Calcium (Crestor) 10 mg PO HS [facility] Last Admin: 02/26/17 21:19 Dose: Not Given Timolol Maleate (Timoptic 0.5% Oph Soln) 1 drop OU BID [facility] Last Admin: 02/27/17 10:31 Dose: 1 drop Vancomycin HCl (Vancocin (Oral Or Rectal Use)) 125 mg PO QID [facility] Last Admin: 02/27/17 13:03 Dose: 125 mg Vitamin B Complex/Vit C/Folic Acid (Nephro-Alonzo) 1 tab PO 0800 [facility] Last Admin: 02/27/17 10:30 Dose: 1 tab - Labs Labs: 02/26/17 15:06 02/26/17 15:06 PT 12.3 SECONDS (9.7-12.2) H 02/18/17 05:30 INR 1.1 02/18/17 05:30 APTT 30 SECONDS (21-34) 02/18/17 05:30 - Constitutional Appears: Non-toxic, Chronically Ill - Head Exam Head Exam: NORMOCEPHALIC - Eye Exam Eye Exam: PERRL - ENT Exam ENT Exam: Mucous Membranes Dry - Neck Exam Neck Exam: absent: Lymphadenopathy - Respiratory Exam Respiratory Exam: Decreased Breath Sounds, Rhonchi - Cardiovascular Exam Cardiovascular Exam: REGULAR RHYTHM - GI/Abdominal Exam GI & Abdominal Exam: Distended, Soft - Rectal Exam Rectal Exam: Deferred - Exam Exam: NORMAL INSPECTION - Extremities Exam Extremities Exam: absent: Calf Tenderness, Pedal Edema - Back Exam Back Exam: absent: CVA tenderness (L), CVA tenderness (R) - Neurological Exam Neurological Exam: Altered Assessment and Plan (1) Change in mental status Status: Acute (2) End stage renal disease on dialysis Status: Acute (3) Heel ulcer Status: Acute (4) IDDM (insulin dependent diabetes mellitus) Status: Chronic - Assessment and Plan (Free Text) Assessment: consider neuro follow up cont rx , wound care and HD
[2017-02-27] MEDS: (Lantus) Insulin Glargine, Recombinant SC SCH (22:07)
[2017-02-27] MEDS: Latanoprost 2.5 ml Opht Soln OU SCH (22:15)
[2017-02-28] MEDS: metroNIDAZOLE IV 500 mg/100 ml 500 MG/100 ML BAG IVPB SCH ×3 (05:58→21:27)
[2017-02-28] MEDS: Multivitamin Vitamin B Complex (Nephro-Vite) Tab PO SCH ×2 (08:17→08:27)
[2017-02-28] MEDS: (Novolin R) Insulin Human Regular 100 units/ml vial SC SCH ×4 (08:18→22:35)
--- NOTE | 2017-02-28 10:10 | CP.PCM.PN ---
Subjective - Date & Time of Evaluation Date of Evaluation: 02/28/17 Time of Evaluation: 08:00 - Subjective Subjective: General Surgery Dr. Broussard Pt S&E @bedside. NAEO. Pt altered, does not answer questions. Objective - Vital Signs/Intake and Output Vital Signs (last 24 hours): Temp Pulse Resp BP Pulse Ox 97.7 F 72 20 150/62 100 02/28/17 08:00 02/28/17 08:00 02/28/17 08:00 02/28/17 08:00 02/28/17 08:00 Intake and Output: 02/28/17 02/28/17 06:59 18:59 Intake Total 1200 Balance 1200 - Medications Medications: Current Medications Amlodipine Besylate (Norvasc) 5 mg PO DAILY [facility] Last Admin: 02/27/17 10:29 Dose: 5 mg Ascorbic Acid (Vitamin C 500 Mg Tab) 500 mg PO DAILY [facility] Last Admin: 02/27/17 10:30 Dose: 500 mg Brimonidine Tartrate (Alphagan 0.2% Opht) 1 ml OU TID [facility] Last Admin: 02/27/17 18:47 Dose: 1 drop Dextrose (Dextrose 50% Inj) 0 ml IV STAT PRN; Protocol PRN Reason: Hyglycemia Protocol Dextrose (Glutose 15) 0 gm PO ONCE PRN; Protocol PRN Reason: Hypoglycemia Protocol Epoetin Maxwell (Procrit) 10,000 unit IV TTS [facility] Stop: 03/03/17 10:01 Last Admin: 02/26/17 17:19 Dose: 10,000 unit Ergocalciferol (Drisdol 50,000 Intl Units Cap) 1 cap PO QWK [facility] Last Admin: 02/26/17 10:51 Dose: Not Given Furosemide (Lasix) 40 mg PO DAILY [facility] Last Admin: 02/27/17 10:29 Dose: 40 mg Glucagon (Glucagen Diagnostic Kit) 0 mg IM STAT PRN; Protocol PRN Reason: Hypoglycemia Protocol Heparin Sodium (Porcine) (Heparin) 3,700 units IVP TTS [facility] Last Admin: 02/26/17 17:19 Dose: 3,700 units Heparin Sodium (Porcine) (Heparin) 5,000 units SC Q8 [facility] Last Admin: 02/25/17 22:34 Dose: 5,000 units Hydralazine HCl (Apresoline) 25 mg PO BID [facility] Last Admin: 02/27/17 18:44 Dose: Not Given Tigecycline 50 mg/ Sodium (Chloride) 100 mls @ 100 mls/hr IVPB Q12H [facility] Last Admin: 02/28/17 08:58 Dose: Not Given Dextrose (Dextrose 5% In Water 1000 Ml) 1,000 mls @ 0 mls/hr IV .Q0M PRN; Protocol; Per Protocol PRN Reason: Hypoglycemia Protocol Metronidazole (Flagyl) 500 mg in 100 mls @ 100 mls/hr IVPB Q8 [facility] Last Admin: 02/28/17 05:58 Dose: 100 mls/hr Insulin Glargine (Lantus) 30 unit SC HS [facility] Last Admin: 02/27/17 22:07 Dose: 30 units Insulin Human Regular (Novolin R) 0 unit SC ACHS [facility] PRN Reason: Protocol Last Admin: 02/28/17 08:18 Dose: 2 unit Latanoprost (Xalatan Opht) 0.02 ml OU HS [facility] Last Admin: 02/27/17 22:15 Dose: 0.02 ml Losartan Potassium (Cozaar) 100 mg PO DAILY [facility] Last Admin: 02/27/17 10:30 Dose: 100 mg Rosuvastatin Calcium (Crestor) 10 mg PO HS [facility] Last Admin: 02/27/17 22:07 Dose: 10 mg Timolol Maleate (Timoptic 0.5% Oph Soln) 1 drop OU BID [facility] Last Admin: 02/27/17 18:47 Dose: 1 drop Vancomycin HCl (Vancocin (Oral Or Rectal Use)) 125 mg PO QID [facility] Last Admin: 02/27/17 22:07 Dose: 125 mg Vitamin B Complex/Vit C/Folic Acid (Nephro-Alonzo) 1 tab PO 0800 [facility] Last Admin: 02/28/17 08:27 Dose: Not Given - Labs Labs: 02/26/17 15:06 02/26/17 15:06 PT 12.3 SECONDS (9.7-12.2) H 02/18/17 05:30 INR 1.1 02/18/17 05:30 APTT 30 SECONDS (21-34) 02/18/17 05:30 - Constitutional Appears: Non-toxic, No Acute Distress - Head Exam Head Exam: NORMAL INSPECTION - Eye Exam Eye Exam: Normal appearance - ENT Exam ENT Exam: Mucous Membranes Moist - Respiratory Exam Respiratory Exam: NORMAL BREATHING PATTERN. absent: Accessory Muscle Use, Respiratory Distress - GI/Abdominal Exam GI & Abdominal Exam: Soft. absent: Distended - Extremities Exam Additional comments: wound vac in place; no leak detected - Neurological Exam Neurological Exam: Alert, Altered, Awake - Psychiatric Exam Psychiatric exam: Normal Affect, Normal Mood - Skin Skin Exam: Dry, Normal Color, Warm Assessment and Plan - Assessment and Plan (Free Text) Assessment: 71 y/o F POD#1 s/p LLE debridement - cont medical management - wound vac change likely Thursday - further recs per Dr. Bobo Murillo DO PGY2
[2017-02-28 10:18] LABS: BASO % 0.3 % (0.0-2.0); EOS # 0.2 K/uL (0.0-0.7); EOS % 1.3 % (0.0-4.0); HEMATOCRIT 31.6 % (34.0-47.0); LYMPH # 1.2 K/uL (1.0-4.3); LYMPH % 7.6 % (20.0-40.0); MEAN CELL VOLUME 88.7 fL (81.0-99.0); MEAN CORPUSCULAR HEMOGLOBIN 28.3 pg (27.0-31.0); MEAN CORPUSCULAR HGB CONC 31.8 g/dL (33.0-37.0); MEAN PLATELET VOLUME 9.2 fL (7.2-11.7); MONO # 0.4 K/uL (0.0-0.8); MONO % 2.2 % (0.0-10.0); NRBC % 0.1 % (0.0-2.0); PLATELET COUNT 215 K/uL (130-400); RED CELL DISTRIBUTION WIDTH 19.6 % (11.5-14.5); WHITE BLOOD COUNT 16.2 K/uL (4.8-10.8)
[2017-02-28 10:21] LABS: POTASSIUM 3.3 mmol/L (3.6-5.2)
[2017-02-28 10:24] LABS: BILIRUBIN,TOTAL 0.4 mg/dL (0.2-1.3); CALCIUM 7.4 mg/dl (8.6-10.4); PHOSPHOROUS 4.3 mg/dL (2.5-4.5)
[2017-02-28 10:25] LABS: MAGNESIUM 1.8 mg/dL (1.6-2.3)
[2017-02-28 10:28] LABS: ALB/GLOB RATIO 0.9 (1.0-2.1)
[2017-02-28] MEDS: Epoetin Alfa 10,000 unit/ml Dialysis IV SCH (10:40)
[2017-02-28 11:08] LABS: EOSINOPHIL 1 % (0-4); NEUTROPHIL 87 % (50-75); TOTAL CELLS COUNTED 100
[2017-02-28 11:09] LABS: LARGE PLATELETS PRESENT
[2017-02-28] MEDS ORDERED: Dextrose 50% SYRINGE Inj (50 ml) IV STA (11:14)
--- NOTE | 2017-02-28 12:56 | CP.PCM.PN ---
<Rohini Nogueira - Last Filed: 02/28/17 14:01> Subjective - Date & Time of Evaluation Date of Evaluation: 02/28/17 Time of Evaluation: 09:45 - Subjective Subjective: Medicine Progress Note Patient seen and examined while in hemodialysis. Patient is non-verbal but respond appropriately to commands. When asked where she has pain the patient points to her left foot. Patient denies chest pain and shortness of breath by shaking her head when asked. Full ROS could not be obtained properly. POD #1 s/ p left foot ulcer debridement. Objective - Vital Signs/Intake and Output Vital Signs (last 24 hours): Temp Pulse Resp BP Pulse Ox 97.7 F 72 20 150/62 100 02/28/17 08:00 02/28/17 08:00 02/28/17 08:00 02/28/17 08:00 02/28/17 08:00 Intake and Output: 02/28/17 02/28/17 06:59 18:59 Intake Total 1200 Balance 1200 - Medications Medications: Current Medications Amlodipine Besylate (Norvasc) 5 mg PO DAILY [facility] Last Admin: 02/27/17 10:29 Dose: 5 mg Ascorbic Acid (Vitamin C 500 Mg Tab) 500 mg PO DAILY [facility] Last Admin: 02/27/17 10:30 Dose: 500 mg Brimonidine Tartrate (Alphagan 0.2% Opht) 1 ml OU TID [facility] Last Admin: 02/27/17 18:47 Dose: 1 drop Dextrose (Dextrose 50% Inj) 0 ml IV STAT PRN; Protocol PRN Reason: Hyglycemia Protocol Dextrose (Glutose 15) 0 gm PO ONCE PRN; Protocol PRN Reason: Hypoglycemia Protocol Epoetin Maxwell (Procrit) 10,000 unit IV TTS [facility] Stop: 03/03/17 10:01 Last Admin: 02/28/17 10:40 Dose: 10,000 unit Ergocalciferol (Drisdol 50,000 Intl Units Cap) 1 cap PO QWK [facility] Last Admin: 02/26/17 10:51 Dose: Not Given Furosemide (Lasix) 40 mg PO DAILY [facility] Last Admin: 02/27/17 10:29 Dose: 40 mg Glucagon (Glucagen Diagnostic Kit) 0 mg IM STAT PRN; Protocol PRN Reason: Hypoglycemia Protocol Heparin Sodium (Porcine) (Heparin) 3,700 units IVP TTS [facility] Last Admin: 10/07/17 10:41 Dose: 3,700 units Heparin Sodium (Porcine) (Heparin) 5,000 units SC Q8 [facility] Last Admin: 02/25/17 22:34 Dose: 5,000 units Hydralazine HCl (Apresoline) 25 mg PO BID [facility] Last Admin: 02/27/17 18:44 Dose: Not Given Tigecycline 50 mg/ Sodium (Chloride) 100 mls @ 100 mls/hr IVPB Q12H [facility] Last Admin: 02/28/17 08:58 Dose: Not Given Dextrose (Dextrose 5% In Water 1000 Ml) 1,000 mls @ 0 mls/hr IV .Q0M PRN; Protocol; Per Protocol PRN Reason: Hypoglycemia Protocol Metronidazole (Flagyl) 500 mg in 100 mls @ 100 mls/hr IVPB Q8 [facility] Last Admin: 02/28/17 05:58 Dose: 100 mls/hr Insulin Glargine (Lantus) 30 unit SC HS [facility] Last Admin: 02/27/17 22:07 Dose: 30 units Insulin Human Regular (Novolin R) 0 unit SC ACHS [facility] PRN Reason: Protocol Last Admin: 02/28/17 08:18 Dose: 2 unit Latanoprost (Xalatan Opht) 0.02 ml OU HS [facility] Last Admin: 02/27/17 22:15 Dose: 0.02 ml Losartan Potassium (Cozaar) 100 mg PO DAILY [facility] Last Admin: 02/27/17 10:30 Dose: 100 mg Rosuvastatin Calcium (Crestor) 10 mg PO HS [facility] Last Admin: 02/27/17 22:07 Dose: 10 mg Timolol Maleate (Timoptic 0.5% Oph Soln) 1 drop OU BID [facility] Last Admin: 02/27/17 18:47 Dose: 1 drop Vancomycin HCl (Vancocin (Oral Or Rectal Use)) 125 mg PO QID [facility] Last Admin: 02/27/17 22:07 Dose: 125 mg Vitamin B Complex/Vit C/Folic Acid (Nephro-Alonzo) 1 tab PO 0800 [facility] Last Admin: 02/28/17 08:27 Dose: Not Given - Labs Labs: 02/28/17 09:58 02/28/17 09:58 PT 12.3 SECONDS (9.7-12.2) H 02/18/17 05:30 INR 1.1 02/18/17 05:30 APTT 30 SECONDS (21-34) 02/18/17 05:30 - Constitutional Appears: No Acute Distress - Head Exam Head Exam: ATRAUMATIC, NORMOCEPHALIC - Eye Exam Eye Exam: EOMI, Normal appearance - ENT Exam ENT Exam: Mucous Membranes Moist - Respiratory Exam Respiratory Exam: Clear to Ausculation Bilateral. absent: Rhonchi, Wheezes, Respiratory Distress - Cardiovascular Exam Cardiovascular Exam: REGULAR RHYTHM, +S1, +S2 - GI/Abdominal Exam GI & Abdominal Exam: Soft, Normal Bowel Sounds - Extremities Exam Additional comments: Bilateral upper extremities swelling Left lower lateral foot ulcer, dressing on - Neurological Exam Neurological Exam: Alert, Awake - Psychiatric Exam Psychiatric exam: Anxious - Skin Skin Exam: Warm Assessment and Plan - Assessment and Plan (Free Text) Assessment: Non-Healing Left Heel Ulcer POD #1 s/p debridement of L foot ulcer 02/26/17: Patient underwent aortofemoral angiogram via right groin with selective catheterization of left anterior femoral artery. Balloon angioplasty of popliteal artery. Pathway arthrectomy and balloon angioplasty of anterior tibial artery. 02/27/17: Debridement of left foot ulcer with wound vac placed and cultures taken. Podiatry consult - Dr. Avery, help appreciated Infectious Disease Dr. Wellington consulted, help appreciated. Dr. Broussard on board, help appreciated. Low ext arterial duplex (02/04/17): R- occlusion R post tib artery, 50-75% stenosis right mid popliteal & proximal anterior tib arteries L- occlusion of left post tib artery, >75% stenosis left proximal ant tibial artery, 50-75% stenosis left distal SFA & proximal popliteal a. Vancomycin 1000 mg IV [facility] D/C'ed on 02/22/17 Cefepime 1 gm IV Q24H 02/18/17 to 02/23/17 Zyvox 600 mg PO BID started 02/22/17-02/23/17 Current antibiotics: Tygacil 100 mg loading dose on 02/25/17 and then continued as Tygacil 50 mg IV Q12H, Vanco 125mg PO QID, Flagyl 500mg IV q8h Abdominal Angiography 02/19/17: Severe bilateral lower extremity arterial runoff with 1 vessel likely remaining patent at the right. None is continuously patent at the left lower extremity [id number]. Widely patent abdominal aorta and iliac arterial system with moderate right and [id number] left femoral arterial disease. Severe bilateral popliteal artery arterial disease. Dr. Avery recommended Left BKA given his physical exam findings. Dr. Broussard also recommends the left BKA. He stated that even if the gangrenous portion is removed, it will not heal regardless of revascularization. As of 02/25, the patient's family has decided for her to stay and have Dr. Broussard clean the wound and improve the circulation in the leg. Before this, they were adamant about getting the patient to [facility] for hyperbaric therapy to try to salvage the leg. They still do not wish for amputation at this time. C. Diff C. Diff studies positive Patient on isolation contact precaution Vancomycin 125 mg PO QID started Dr. Wellington added Flagyl 500 mg IV Q8H f/u repeat stool study on 02/[address] Head negative for Acute Territorial Infarction Patient found hypoglycemic by both and EMS with symptoms that suggest seizure episode. Patient is a poorly controlled diabetic. Monitor Accuchecks qACHS and Q4H Patient likely had an episode of neuroglycopenia and currently in post-ictal state. Due to post-ictal state, decision made to avoid narcotic pain medications. NUCLEAR INSTRUCTOR performed successful bedside swallow eval and recommended Pureed diet with thin liquids. Home PO meds restarted. Neurology consult Dr. Tanisha Aguirre, help appreciated. Thiamine 100 mg Q8H Could not get brain MRI which was neuro's recommendation due to 3 previous attempts where patient was moving too much. We do not wish to further sedate the patient due to her current mental state, so instead a repeat CT Head without contrast was done on 02/23/17. This CT head did not demonstrate any acute hemorrhagic or ischemic pathology. End Stage Renal Disease on Hemodialysis On HD T,S Dr. Ambrose nephrology consulted- help appreciated Low Protein Albumin decreasing, 2.3 today Re-consulted shop fitter for recommendations as patient has decreased appetite and low protein. Currently on renal diet. Leukocytosis Currently downtrending, WBC 16.2 today, afebrile Blood culture negative x5 days on 02/18 Wound culture + Serratia and VRE Will continue antibiotics and check CBC daily Hypertension For now, we are wary of using IV antihypertensive medications because the patient is in a fragile state. BP is well managed. We requested but were unable to attain ICU monitoring. PO Home medications resumed * Norvasc 5 mg PO daily * Losartan 100 mg PO daily * Furosemide 40 mg PO daily * Held Bumex for now Monitor BP q6h and adjust meds as needed Anemia of Chronic Disease Hgb 10.1, stable Likely secondary to ESRD Dr. Ambrose put for IV ferlicet 125 mg and Procrit 10,000 units IV Monitor CBC daily Diabetes Accuchecks qACHS RISS Home Lantus 30 units SC HS Crestor 10mg PO HS Prophylactic Measures SCDs Heparin 5000 units SC Q8H Decision made to avoid anticoagulation due to concern of possible evolving brain bleed or CT occult bleed, but this has been ruled out with a follow up CT 1:1 observation due to agitation. Patient tries to get out of bed. Fall precautions Disposition: This patient has a very poor prognosis. The family wishes to try to save the leg despite multiple professional opinions on the necessity of an amputation. The family initially wished for the patient to go to [facility] where hyperbaric therapy is available in order to promote healing. They wished to be cared for by their personal metal numerical control programmer Dr. Ware; however, Dr. Ware has become unavailable. So the family decided to remain at [facility] and attempt healing via vascular surgery to improve circulation and wound debridement of damaged tissue. They were repeatedly warned by multiple medical staff assistant of the risks associated with refusing a BKA and attempting to salvage the foot. The family verbalized understanding of the risks but still decide against a BKA at this time. <Benson Myrick Jr. - Last Filed: 03/08/17 12:01> Objective - Vital Signs/Intake and Output Vital Signs (last 24 hours): Temp Pulse Resp BP Pulse Ox 97.9 F 76 20 166/69 H 98 03/08/17 08:12 03/08/17 08:12 03/08/17 08:12 03/08/17 10:49 03/08/17 08:12 Intake and Output: 03/08/17 03/08/17 06:59 18:59 Intake Total 770 Balance 770 - Medications Medications: Current Medications Acetaminophen (Tylenol 325mg Tab) 650 mg PO Q6 PRN PRN Reason: Pain, Mild (1-3) Last Admin: 03/07/17 18:20 Dose: 650 mg Amlodipine Besylate (Norvasc) 5 mg PO DAILY [facility] Last Admin: 03/08/17 10:50 Dose: 5 mg Ascorbic Acid (Vitamin C 500 Mg Tab) 500 mg PO DAILY [facility] Last Admin: 03/08/17 10:49 Dose: 500 mg Brimonidine Tartrate (Alphagan 0.2% Opht) 1 ml OU TID [facility] Last Admin: 03/08/17 10:52 Dose: 1 drop Collagenase (Santyl) 0 gm TOP DAILY [facility] Last Admin: 03/08/17 10:50 Dose: Not Given Dextrose (Dextrose 50% Inj) 0 ml IV STAT PRN; Protocol PRN Reason: Hyglycemia Protocol Dextrose (Glutose 15) 0 gm PO ONCE PRN; Protocol PRN Reason: Hypoglycemia Protocol Epoetin Maxwell (Procrit) 10,000 unit IV TTS [facility] Last Admin: 03/07/17 11:29 Dose: 10,000 unit Ergocalciferol (Drisdol 50,000 Intl Units Cap) 1 cap PO QWK [facility] Last Admin: 03/05/17 14:54 Dose: 1 cap Furosemide (Lasix) 40 mg PO DAILY [facility] Last Admin: 03/08/17 10:49 Dose: 40 mg Glucagon (Glucagen Diagnostic Kit) 0 mg IM STAT PRN; Protocol PRN Reason: Hypoglycemia Protocol Heparin Sodium (Porcine) (Heparin) 5,000 units SC Q8 [facility] Last Admin: 03/08/17 04:59 Dose: 5,000 units Heparin Sodium (Porcine) (Heparin) 3,700 units IVP TTS [facility] Stop: 03/24/17 23:59 Last Admin: 03/07/17 11:20 Dose: 3,700 units Hydralazine HCl (Apresoline) 25 mg PO BID [facility] Last Admin: 03/08/17 10:49 Dose: 25 mg Hydromorphone HCl (Dilaudid) 0.5 mg IVP Q6H PRN PRN Reason: Pain, severe (8-10) Last Admin: 03/08/17 10:50 Dose: 0.5 mg Tigecycline 50 mg/ Sodium (Chloride) 100 mls @ 100 mls/hr IVPB Q12H [facility] Last Admin: 03/08/17 08:33 Dose: 100 mls/hr Fluconazole (Diflucan Iv 200 Mg/100 Ml Ns) 100 mls @ 100 mls/hr IVPB DAILY [facility] Last Admin: 03/08/17 11:03 Dose: 100 mls/hr Sodium Chloride 35 meq/Potassium Chloride 30 meq/Magnesium Sulfate 6 meq/ Calcium Gluconate 4.5 meq/Heparin Sodium (Porcine) 1,000 units/ Amino Acids 1, 035.9052 mls @ 63 mls/hr IV .[id number] [facility] Stop: 03/08/17 18:00 Last Admin: 03/08/17 11:03 Dose: 63 mls/hr Sodium Chloride 35 meq/Potassium Chloride 30 meq/Magnesium Sulfate 6 meq/ Calcium Gluconate 4.5 meq/Heparin Sodium (Porcine) 1,000 units/ Amino Acids 1, 035.9052 mls @ 63 mls/hr IV .[id number] [facility] Stop: 03/09/17 10:26 Sodium Chloride 35 meq/Potassium Chloride 30 meq/Magnesium Sulfate 6 meq/ Calcium Gluconate 4.5 meq/Heparin Sodium (Porcine) 1,000 units/ Amino Acids 1, 035.9052 mls @ 63 mls/hr IV .[id number] [facility] Stop: 03/09/17 17:59 Insulin Glargine (Lantus) 25 unit SC HS [facility] Last Admin: 03/07/17 21:03 Dose: 25 unit Insulin Human Regular (Novolin R) 0 unit SC ACHS [facility] PRN Reason: Protocol Last Admin: 03/08/17 08:33 Dose: 12 unit Latanoprost (Xalatan Opht) 0.02 ml OU HS [facility] Last Admin: 03/07/17 21:13 Dose: Not Given Losartan Potassium (Cozaar) 100 mg PO DAILY [facility] Last Admin: 03/08/17 10:49 Dose: 100 mg Pantoprazole Sodium (Protonix Inj) 40 mg IVP Q12H [facility] Last Admin: 03/08/17 04:26 Dose: 40 mg Rosuvastatin Calcium (Crestor) 10 mg PO HS [facility] Last Admin: 03/07/17 21:07 Dose: 10 mg Timolol Maleate (Timoptic 0.5% Oph Soln) 1 drop OU BID [facility] Last Admin: 03/08/17 10:51 Dose: 1 drop Vitamin B Complex/Vit C/Folic Acid (Nephro-Alonzo) 1 tab PO 0800 [facility] Last Admin: 03/08/17 08:33 Dose: 1 tab - Labs Labs: 03/07/17 10:03 03/07/17 10:03 PT 12.3 SECONDS (9.7-12.2) H 02/18/17 05:30 INR 1.1 02/18/17 05:30 APTT 30 SECONDS (21-34) 02/18/17 05:30 Attending/Attestation - Attestation I have personally seen and examined this patient.: Yes I have fully participated in the care of the patient.: Yes I have reviewed all pertinent clinical information, including history, physical exam and plan: Yes Notes (Text): 03/08/17 12:01 Agree with resident note and plan of care
--- NOTE | 2017-02-28 12:59 | CP.PCM.PN ---
Subjective - Date & Time of Evaluation Date of Evaluation: 02/28/17 Time of Evaluation: 12:58 - Subjective Subjective: need a few days to evaluate respomse to RX Objective - Vital Signs/Intake and Output Vital Signs (last 24 hours): Temp Pulse Resp BP Pulse Ox 97.7 F 72 20 150/62 100 02/28/17 08:00 02/28/17 08:00 02/28/17 08:00 02/28/17 08:00 02/28/17 08:00 Intake and Output: 02/28/17 02/28/17 06:59 18:59 Intake Total 1200 Balance 1200 - Medications Medications: Current Medications Amlodipine Besylate (Norvasc) 5 mg PO DAILY [facility] Last Admin: 02/27/17 10:29 Dose: 5 mg Ascorbic Acid (Vitamin C 500 Mg Tab) 500 mg PO DAILY [facility] Last Admin: 02/27/17 10:30 Dose: 500 mg Brimonidine Tartrate (Alphagan 0.2% Opht) 1 ml OU TID [facility] Last Admin: 02/27/17 18:47 Dose: 1 drop Dextrose (Dextrose 50% Inj) 0 ml IV STAT PRN; Protocol PRN Reason: Hyglycemia Protocol Dextrose (Glutose 15) 0 gm PO ONCE PRN; Protocol PRN Reason: Hypoglycemia Protocol Epoetin Maxwell (Procrit) 10,000 unit IV TTS [facility] Stop: 03/03/17 10:01 Last Admin: 02/28/17 10:40 Dose: 10,000 unit Ergocalciferol (Drisdol 50,000 Intl Units Cap) 1 cap PO QWK [facility] Last Admin: 02/26/17 10:51 Dose: Not Given Furosemide (Lasix) 40 mg PO DAILY [facility] Last Admin: 02/27/17 10:29 Dose: 40 mg Glucagon (Glucagen Diagnostic Kit) 0 mg IM STAT PRN; Protocol PRN Reason: Hypoglycemia Protocol Heparin Sodium (Porcine) (Heparin) 3,700 units IVP TTS [facility] Last Admin: 02/28/17 10:41 Dose: 3,700 units Heparin Sodium (Porcine) (Heparin) 5,000 units SC Q8 [facility] Last Admin: 02/25/17 22:34 Dose: 5,000 units Hydralazine HCl (Apresoline) 25 mg PO BID [facility] Last Admin: 02/27/17 18:44 Dose: Not Given Tigecycline 50 mg/ Sodium (Chloride) 100 mls @ 100 mls/hr IVPB Q12H [facility] Last Admin: 02/28/17 08:58 Dose: Not Given Dextrose (Dextrose 5% In Water 1000 Ml) 1,000 mls @ 0 mls/hr IV .Q0M PRN; Protocol; Per Protocol PRN Reason: Hypoglycemia Protocol Metronidazole (Flagyl) 500 mg in 100 mls @ 100 mls/hr IVPB Q8 [facility] Last Admin: 02/28/17 05:58 Dose: 100 mls/hr Insulin Glargine (Lantus) 30 unit SC HS [facility] Last Admin: 02/27/17 22:07 Dose: 30 units Insulin Human Regular (Novolin R) 0 unit SC ACHS [facility] PRN Reason: Protocol Last Admin: 02/28/17 08:18 Dose: 2 unit Latanoprost (Xalatan Opht) 0.02 ml OU HS [facility] Last Admin: 02/27/17 22:15 Dose: 0.02 ml Losartan Potassium (Cozaar) 100 mg PO DAILY [facility] Last Admin: 02/27/17 10:30 Dose: 100 mg Rosuvastatin Calcium (Crestor) 10 mg PO HS [facility] Last Admin: 02/27/17 22:07 Dose: 10 mg Timolol Maleate (Timoptic 0.5% Oph Soln) 1 drop OU BID [facility] Last Admin: 02/27/17 18:47 Dose: 1 drop Vancomycin HCl (Vancocin (Oral Or Rectal Use)) 125 mg PO QID [facility] Last Admin: 02/27/17 22:07 Dose: 125 mg Vitamin B Complex/Vit C/Folic Acid (Nephro-Alonzo) 1 tab PO 0800 [facility] Last Admin: 02/28/17 08:27 Dose: Not Given - Labs Labs: 02/28/17 09:58 02/28/17 09:58 PT 12.3 SECONDS (9.7-12.2) H 02/18/17 05:30 INR 1.1 02/18/17 05:30 APTT 30 SECONDS (21-34) 02/18/17 05:30
[2017-02-28] MEDS: Brimonidine 0.2% Opth Sol (5ml) OU SCH ×3 (13:51→17:43)
[2017-02-28] MEDS: Vancomycin 125 MG/5 ML SOLN (ORAL/RECTAL) PO SCH ×4 (13:52→22:35)
--- NOTE | 2017-02-28 22:23 | CP.PCM.PN ---
Subjective - Date & Time of Evaluation Date of Evaluation: 02/28/17 Time of Evaluation: 14:00 - Subjective Subjective: SEEN ON RENAL F/U JUST COMPLETED HER HD FULLY ALERT AND RESPONSIVE .. STILL WITH EXPRESIVE APHASIA IN NAD C/O PAIN ON L LEG AND FOOT D/W AND FAMILY MEMBERS Objective - Vital Signs/Intake and Output Vital Signs (last 24 hours): Temp Pulse Resp BP Pulse Ox 97.7 F 70 20 109/56 L 95 02/28/17 16:00 02/28/17 18:00 02/28/17 16:00 02/28/17 16:00 02/28/17 16:00 - Medications Medications: Current Medications Acetaminophen (Tylenol 325mg Tab) 650 mg PO Q6 PRN PRN Reason: Pain, Mild (1-3) Last Admin: 02/28/17 14:48 Dose: 650 mg Amlodipine Besylate (Norvasc) 5 mg PO DAILY [facility] Last Admin: 02/28/17 14:28 Dose: Not Given Ascorbic Acid (Vitamin C 500 Mg Tab) 500 mg PO DAILY [facility] Last Admin: 02/28/17 14:29 Dose: Not Given Brimonidine Tartrate (Alphagan 0.2% Opht) 1 ml OU TID [facility] Last Admin: 02/28/17 17:43 Dose: 1 drop Dextrose (Dextrose 50% Inj) 0 ml IV STAT PRN; Protocol PRN Reason: Hyglycemia Protocol Dextrose (Glutose 15) 0 gm PO ONCE PRN; Protocol PRN Reason: Hypoglycemia Protocol Epoetin Maxwell (Procrit) 10,000 unit IV TTS [facility] Stop: 03/03/17 10:01 Last Admin: 02/28/17 10:40 Dose: 10,000 unit Ergocalciferol (Drisdol 50,000 Intl Units Cap) 1 cap PO QWK [facility] Last Admin: 02/26/17 10:51 Dose: Not Given Furosemide (Lasix) 40 mg PO DAILY [facility] Last Admin: 02/28/17 14:28 Dose: Not Given Gabapentin (Neurontin) 300 mg PO BID [facility] Glucagon (Glucagen Diagnostic Kit) 0 mg IM STAT PRN; Protocol PRN Reason: Hypoglycemia Protocol Heparin Sodium (Porcine) (Heparin) 3,700 units IVP TTS [facility] Last Admin: 02/28/17 10:41 Dose: 3,700 units Heparin Sodium (Porcine) (Heparin) 5,000 units SC Q8 [facility] Last Admin: 02/25/17 22:34 Dose: 5,000 units Hydralazine HCl (Apresoline) 25 mg PO BID [facility] Last Admin: 02/28/17 17:42 Dose: Not Given Tigecycline 50 mg/ Sodium (Chloride) 100 mls @ 100 mls/hr IVPB Q12H [facility] Last Admin: 02/28/17 19:46 Dose: 100 mls/hr Dextrose (Dextrose 5% In Water 1000 Ml) 1,000 mls @ 0 mls/hr IV .Q0M PRN; Protocol; Per Protocol PRN Reason: Hypoglycemia Protocol Metronidazole (Flagyl) 500 mg in 100 mls @ 100 mls/hr IVPB Q8 [facility] Last Admin: 02/28/17 21:27 Dose: 100 mls/hr Ibuprofen (Motrin Tab) 400 mg PO Q6H PRN PRN Reason: Pain, moderate (4-7) Last Admin: 02/28/17 14:49 Dose: 400 mg Insulin Glargine (Lantus) 30 unit SC HS [facility] Last Admin: 02/27/17 22:07 Dose: 30 units Insulin Human Regular (Novolin R) 0 unit SC ACHS [facility] PRN Reason: Protocol Last Admin: 02/28/17 16:56 Dose: Not Given Latanoprost (Xalatan Opht) 0.02 ml OU HS [facility] Last Admin: 02/27/17 22:15 Dose: 0.02 ml Losartan Potassium (Cozaar) 100 mg PO DAILY [facility] Last Admin: 02/28/17 15:49 Dose: Not Given Rosuvastatin Calcium (Crestor) 10 mg PO HS [facility] Last Admin: 02/27/17 22:07 Dose: 10 mg Timolol Maleate (Timoptic 0.5% Ophth Soln) 1 drop OU BID [facility] Last Admin: 02/28/17 17:43 Dose: 1 drop Vancomycin HCl (Vancocin (Oral Or Rectal Use)) 125 mg PO QID [facility] Last Admin: 02/28/17 17:42 Dose: 125 mg Vitamin B Complex/Vit C/Folic Acid (Nephro-Alonzo) 1 tab PO 0800 [facility] Last Admin: 02/28/17 08:27 Dose: Not Given - Labs Labs: 02/28/17 09:58 02/28/17 09:58 PT 12.3 SECONDS (9.7-12.2) H 02/18/17 05:30 INR 1.1 02/18/17 05:30 APTT 30 SECONDS (21-34) 02/18/17 05:30 Assessment and Plan - Assessment and Plan (Free Text) Assessment: ESRD ON HD T T S .. ANEMIA OF CKD .. ON EPO L LEG SEVERE PAD .. S/P ANGIOPLASTY MMP .. P : C/O CURRENT CARE C/O PRESENT MEDS
[2017-02-28] MEDS: Latanoprost 2.5 ml Opht Soln OU SCH (22:32)
[2017-02-28] MEDS: (Lantus) Insulin Glargine, Recombinant SC SCH (22:34)
[2017-03-01] MEDS: metroNIDAZOLE IV 500 mg/100 ml 500 MG/100 ML BAG IVPB SCH ×3 (05:28→22:36)
[2017-03-01] MEDS ORDERED: Dextrose 50% SYRINGE Inj (50 ml) ONE ×2 (05:38→06:46)
[2017-03-01] MEDS ORDERED: Dextrose 50% SYRINGE Inj (50 ml) IV STA (06:40)
[2017-03-01] MEDS: (Novolin R) Insulin Human Regular 100 units/ml vial SC SCH ×4 (07:30→21:27)
[2017-03-01 07:44] LABS: VENOUS BLOOD GAS BASE EXCESS 1.7 mmol/L (0.0-2.0); VENOUS BLOOD GAS PCO2 42 mmHg (40-60); VENOUS BLOOD PH 7.41 (7.32-7.43)
--- NOTE | 2017-03-01 07:55 | PCM.RRT ---
<Gokul Dinh - Last Filed: 03/01/17 07:52> BUILDING ADMIN Nurses Assessment - Situation Date: 03/01/17 Time BUILDING ADMIN was called: 05:40 BUILDING ADMIN Responder Arrival Time:: 05:42 BUILDING ADMIN Location:: Med/Surg Room Number: 565 BUILDING ADMIN Reason for Call: Not Responding to Urgent Treatment BUILDING ADMIN Called By: RN - IV IV Inserted during BUILDING ADMIN?: No New IV Insertion Tolerance: Good - Respiratory BUILDING ADMIN Delivery Method: Nasal Cannula @L/min Oxygen Flow Rate: 6 Received Nebulizer Treatments: No Was the Patient Ventilated with Bag/Mask 100% O2?: No Secretions Suctioned?: No Was the Patient Intubated?: No Was the Patient Placed on a Ventilator?: No - Medication Medications Administered During BUILDING ADMIN: none,Dextrose 50% 1 amp given before RR - Diagnostic Test Ordered EKG: No Chest X-Ray: No CT Scan: No CPR started during BUILDING ADMIN?: No - Vital Signs Vital Signs: Rapid Response Vital Sign Blood Pressure 122/61 Pulse Rate 65 Respiratory Rate 16 Oxygen Saturation 96 - Time BUILDING ADMIN Ended Time BUILDING ADMIN Ended: 06:15 - Vital Signs at end of BUILDING ADMIN Vital Signs at end of BUILDING ADMIN: Rapid Response End Vital Sign Blood Pressure 138/65 Pulse Rate 65 Respiratory Rate 18 O2 Sat by Pulse Oximetry 99 - Recommendations Notifications: Attending Physician - Neurological Status (Select all that apply): Responsive (only to painful stimuli), Verbal, Follows Commands, Lethargic - Respiratory Oxygen Delivery Method: Nasal Cannula @L/min Oxygen Flow Rate: 6 - Constitutional Appears: Non-toxic - Head Head Exam: ATRAUMATIC, NORMOCEPHALIC - Eyes Eye Exam: EOMI, Normal appearance, PERRL. absent: Scleral icterus - Respiratory Exam Respiratory Exam: Clear to Ausculation Bilateral, NORMAL BREATHING PATTERN. absent: Accessory Muscle Use, Rales, Wheezes, Respiratory Distress - Cardiovascular Exam Cardiovascular Exam: Bradycardia (56), +S1, +S2 - GI/Abdominal Exam GI & Abdominal Exam: Soft, Normal Bowel Sounds. absent: Distended, Firm, Guarding, Rigid, Tenderness - Neurological Exam Neurological Exam: Altered (only responding to painful stimuli) Plan - Assessment of Findings&Treatment Plan Upon arrival patient was responsive to painful stimuli. She would awaken but quickly fall back asleep. Patient had blood glucose of 20. 1 amp of D50 given. Repeat blood glucose 176. Patient began responding to question and was able to sit up and eat. She stated she did not like the apple sauce, but would eat the tuna fish sandwich. Per nurse, she ate half the apple sauce and half of the tuna fish sandwich. The original rapid was determined to be over now that the patient was sitting up and responsive. Her vital signs were stable throughout. Resident was called approximately 45 minutes later by the nurse, stating that the patient's blood sugar was dropping again and was in the low 100s. It was decided to give another amp of D50. Approximately 15 minutes later, resident was called again and requested to return to bedside to re-evaluate the patient. The patient was now more difficult to arouse. She appeared to be sleeping and would not awake for more than a couple of seconds with a sternal rub by resident. Repeat BS >200. Dr. Stafford was called and arrived at bedside. He was able to awaken the patient with painful stimuli by squeezing left leg. Patient stated her name, was able to move all four limbs, stick her tongue out w/o deviation and keep her eyes open. Once patient's leg was no longer being squeezed, she was quick to fall back asleep. Patient was sent for a Head CT w/o contrast and VBG was drawn with morning labs. Patient started on D10w @30mL/hr day time resident will f/u head CT (Dr. Nogueira) VBG: pO2 - 164 pH - 7.41 pCO2 - 42 HCO3 - 26.3 Lactate - 2.[address] Myrick was called and notified of event. Requested decrease in Lantus to 15 units. Gokul Dinh PGY1 <Jordan Stafford P - Last Filed: 03/10/17 07:53> BUILDING ADMIN Nurses Assessment - Vital Signs Vital Signs: Rapid Response Vital Sign Blood Pressure 115/79 Pulse Rate 58 Respiratory Rate 18 Temperature 97.6 F Oxygen Saturation 97 - Vital Signs at end of BUILDING ADMIN Vital Signs at end of BUILDING ADMIN: Rapid Response End Vital Sign Blood Pressure 112/56 Pulse Rate 59 Respiratory Rate 18 Temperature 97.8 F O2 Sat by Pulse Oximetry 98 Attending/Attestation - Attestation I have personally seen and examined this patient.: Yes I have fully participated in the care of the patient.: Yes I have reviewed all pertinent clinical information, including history, physical exam and plan: Yes Notes (Text): See note for the same day.
--- NOTE | 2017-03-01 08:19 | CP.PCM.PN ---
Subjective - Date & Time of Evaluation Date of Evaluation: 03/01/17 Time of Evaluation: 07:15 - Subjective Subjective: Vascular Surgery Dr. Broussard Pt S&E @bedside. RESPITE COORDINATOR called overnight, pt unresponsive. BG was 20. Pt responded to amp D50 and food. During rounds, pt responsive to painful stimuli only. BG 265, AVSS. Lactic Acid 2.8, remaining AM Labs pending. Objective - Vital Signs/Intake and Output Vital Signs (last 24 hours): Temp Pulse Resp BP Pulse Ox 97.4 F L 56 L 17 134/71 100 02/28/17 23:34 03/01/17 07:00 03/01/17 07:00 03/01/17 07:00 03/01/17 07:00 Intake and Output: 03/01/17 03/01/17 06:59 18:59 Intake Total 300 Output Total 1 Balance 299 - Medications Medications: Current Medications Acetaminophen (Tylenol 325mg Tab) 650 mg PO Q6 PRN PRN Reason: Pain, Mild (1-3) Last Admin: 02/28/17 14:48 Dose: 650 mg Amlodipine Besylate (Norvasc) 5 mg PO DAILY [facility] Last Admin: 02/28/17 14:28 Dose: Not Given Ascorbic Acid (Vitamin C 500 Mg Tab) 500 mg PO DAILY [facility] Last Admin: 02/28/17 14:29 Dose: Not Given Brimonidine Tartrate (Alphagan 0.2% Opht) 1 ml OU TID [facility] Last Admin: 02/28/17 17:43 Dose: 1 drop Dextrose (Dextrose 50% Inj) 0 ml IV STAT PRN; Protocol PRN Reason: Hyglycemia Protocol Dextrose (Glutose 15) 0 gm PO ONCE PRN; Protocol PRN Reason: Hypoglycemia Protocol Epoetin Maxwell (Procrit) 10,000 unit IV TTS [facility] Stop: 03/03/17 10:01 Last Admin: 02/28/17 10:40 Dose: 10,000 unit Ergocalciferol (Drisdol 50,000 Intl Units Cap) 1 cap PO QWK [facility] Last Admin: 02/26/17 10:51 Dose: Not Given Furosemide (Lasix) 40 mg PO DAILY [facility] Last Admin: 02/28/17 14:28 Dose: Not Given Gabapentin (Neurontin) 300 mg PO BID [facility] Glucagon (Glucagen Diagnostic Kit) 0 mg IM STAT PRN; Protocol PRN Reason: Hypoglycemia Protocol Heparin Sodium (Porcine) (Heparin) 3,700 units IVP TTS [facility] Last Admin: 02/28/17 10:41 Dose: 3,700 units Heparin Sodium (Porcine) (Heparin) 5,000 units SC Q8 [facility] Last Admin: 03/01/17 05:31 Dose: 5,000 units Hydralazine HCl (Apresoline) 25 mg PO BID [facility] Last Admin: 02/28/17 17:42 Dose: Not Given Tigecycline 50 mg/ Sodium (Chloride) 100 mls @ 100 mls/hr IVPB Q12H [facility] Last Admin: 02/28/17 19:46 Dose: 100 mls/hr Dextrose (Dextrose 5% In Water 1000 Ml) 1,000 mls @ 0 mls/hr IV .Q0M PRN; Protocol; Per Protocol PRN Reason: Hypoglycemia Protocol Metronidazole (Flagyl) 500 mg in 100 mls @ 100 mls/hr IVPB Q8 [facility] Last Admin: 03/01/17 05:28 Dose: 100 mls/hr Dextrose (Dextrose 10% In Water) 1,000 mls @ 30 mls/hr IV .Q24H [facility] Ibuprofen (Motrin Tab) 400 mg PO Q6H PRN PRN Reason: Pain, moderate (4-7) Last Admin: 02/28/17 14:49 Dose: 400 mg Insulin Glargine (Lantus) 15 unit SC HS [facility] Insulin Human Regular (Novolin R) 0 unit SC ACHS [facility] PRN Reason: Protocol Last Admin: 02/28/17 22:35 Dose: Not Given Latanoprost (Xalatan Opht) 0.02 ml OU HS [facility] Last Admin: 02/28/17 22:32 Dose: 0.02 ml Losartan Potassium (Cozaar) 100 mg PO DAILY [facility] Last Admin: 02/28/17 15:49 Dose: Not Given Rosuvastatin Calcium (Crestor) 10 mg PO HS [facility] Last Admin: 02/28/17 22:32 Dose: 10 mg Timolol Maleate (Timoptic 0.5% Ophth Soln) 1 drop OU BID [facility] Last Admin: 02/28/17 17:43 Dose: 1 drop Vancomycin HCl (Vancocin (Oral Or Rectal Use)) 125 mg PO QID [facility] Last Admin: 02/28/17 22:35 Dose: 125 mg Vitamin B Complex/Vit C/Folic Acid (Nephro-Alonzo) 1 tab PO 0800 [facility] Last Admin: 02/28/17 08:27 Dose: Not Given - Labs Labs: 02/28/17 09:58 02/28/17 09:58 PT 12.3 SECONDS (9.7-12.2) H 02/18/17 05:30 INR 1.1 02/18/17 05:30 APTT 30 SECONDS (21-34) 02/18/17 05:30 - Constitutional Appears: Non-toxic, Confused - Head Exam Head Exam: NORMAL INSPECTION - Eye Exam Eye Exam: Normal appearance - ENT Exam ENT Exam: Mucous Membranes Moist - Respiratory Exam Respiratory Exam: NORMAL BREATHING PATTERN. absent: Accessory Muscle Use, Respiratory Distress - Cardiovascular Exam Cardiovascular Exam: Bradycardia, REGULAR RHYTHM. absent: Tachycardia - GI/Abdominal Exam GI & Abdominal Exam: Soft. absent: Distended, Tenderness - Extremities Exam Additional comments: LLE wound vac in place. no leak present RLE groin site c/d/i. no bleeding/hematoma noted Assessment and Plan - Assessment and Plan (Free Text) Assessment: 71 y/o F POD#3 s/p LLE debridement and wound vac placement w/ acute worsening AMS - f/u AM labs - monitor vitals - cont IV Abx per ID - cont medical management - wound vac change likely Thursday Further recs per Dr. Bobo Murillo DO PGY2
--- NOTE | 2017-03-01 08:20 | CT ---
PROCEDURE: CT HEAD WITHOUT CONTRAST. HISTORY: lethargic COMPARISON: Comparison is made to 02/23/2017 TECHNIQUE: Axial computed tomography images were obtained through the head/brain without intravenous contrast. Radiation dose: Total exam DLP = 808.07 mGy-cm. This CT exam was performed using one or more of the following dose reduction techniques: Automated exposure control, adjustment of the mA and/or kV according to patient size, and/or use of iterative reconstruction technique. FINDINGS: HEMORRHAGE: No intracranial hemorrhage. BRAIN: No mass effect or edema. Mild to moderate volume loss is again noted. Moderate white matter changes are again noted suggestive of chronic microvascular ischemic disease. VENTRICLES: Unremarkable. No hydrocephalus. CALVARIUM: Unremarkable. PARANASAL SINUSES: Unremarkable as visualized. No significant inflammatory changes. MASTOID AIR CELLS: Unremarkable as visualized. No inflammatory changes. OTHER FINDINGS: None. IMPRESSION: No evidence of acute intracranial hemorrhage intracranial collection mass effect or midline shift. [id number] volume loss and moderate white matter changes are again noted. Preliminary report was submitted by virtual Radiology.
[2017-03-01 08:24] LABS: POTASSIUM 3.6 mmol/L (3.6-5.2)
--- NOTE | 2017-03-01 08:25 | CP.PCM.PN ---
Subjective - Date & Time of Evaluation Date of Evaluation: 03/01/17 Time of Evaluation: 07:00 - Subjective Subjective: Patient evaluated during PSYCHOLOGY TEACHER called after patient found unresponsive and hypoglycemia noticed, patient was given d50 when hypoglycemia noticed with patient being lethargic post d50, slowly started to respond talk, follow commands. Patient was then fed with apple sauce, tuna sandwich, and apple juice , she was responsive moving all ext. About 45 mins after above, patient became lethargic again, this time difficult to arouse. Patient was arousable with deep sternal rub, and painful stimuli to the left legs, would move all 4 ext, spoke her name but slurred glucose > 200mg/dl. Chart reviewed this episode appeared similar to the 2 episodes prior one on day of presentation and second on 02/23, initial hypoglycemia then response then lethargy, partial seizure or enephalopathy form recurrent hypo and hyperglycemia was suspected. Patient been on lantus 30 units hs but has been on it intermittently, morning hypoglycemia on the morning after the next day noticed which is the typical time for hypoglycemia for lantus. Intermittent hyperglycemia has been noticed when patient is completely off the lantus which could be traced from history of lantus administration. Patient will hence need the lower dose of lantus which could be maintained to prevent hypyo and hyperglycemic episodes. 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 Plan Patient sent for repeat CT eval if any changes or new etiology D10 at 30ml/hr due to lethargy, risk of recurrent hypoglycemia, reduce dose of lantus to 15 units starting tomorrow, Labs, including VBG slight high lactate expected due to hypoglycemia, esrd, poor circulation CXR Neurochecks Primary team will be notified, will be signed out to next team, patient in proscess of eval Spoke to the nursing team Objective - Vital Signs/Intake and Output Vital Signs (last 24 hours): Temp Pulse Resp BP Pulse Ox 97.4 F L 56 L 17 134/71 100 02/28/17 23:34 03/01/17 07:00 03/01/17 07:00 03/01/17 07:00 03/01/17 07:00 Intake and Output: 03/01/17 03/01/17 06:59 18:59 Intake Total 300 Output Total 1 Balance 299 - Medications Medications: Current Medications Acetaminophen (Tylenol 325mg Tab) 650 mg PO Q6 PRN PRN Reason: Pain, Mild (1-3) Last Admin: 02/28/17 14:48 Dose: 650 mg Amlodipine Besylate (Norvasc) 5 mg PO DAILY [facility] Last Admin: 02/28/17 14:28 Dose: Not Given Ascorbic Acid (Vitamin C 500 Mg Tab) 500 mg PO DAILY [facility] Last Admin: 02/28/17 14:29 Dose: Not Given Brimonidine Tartrate (Alphagan 0.2% Opht) 1 ml OU TID [facility] Last Admin: 02/28/17 17:43 Dose: 1 drop Dextrose (Dextrose 50% Inj) 0 ml IV STAT PRN; Protocol PRN Reason: Hyglycemia Protocol Dextrose (Glutose 15) 0 gm PO ONCE PRN; Protocol PRN Reason: Hypoglycemia Protocol Epoetin Maxwell (Procrit) 10,000 unit IV TTS [facility] Stop: 03/03/17 10:01 Last Admin: 02/28/17 10:40 Dose: 10,000 unit Ergocalciferol (Drisdol 50,000 Intl Units Cap) 1 cap PO QWK [facility] Last Admin: 02/26/17 10:51 Dose: Not Given Furosemide (Lasix) 40 mg PO DAILY [facility] Last Admin: 02/28/17 14:28 Dose: Not Given Gabapentin (Neurontin) 300 mg PO BID [facility] Glucagon (Glucagen Diagnostic Kit) 0 mg IM STAT PRN; Protocol PRN Reason: Hypoglycemia Protocol Heparin Sodium (Porcine) (Heparin) 3,700 units IVP TTS [facility] Last Admin: 02/28/17 10:41 Dose: 3,700 units Heparin Sodium (Porcine) (Heparin) 5,000 units SC Q8 [facility] Last Admin: 03/01/17 05:31 Dose: 5,000 units Hydralazine HCl (Apresoline) 25 mg PO BID [facility] Last Admin: 02/28/17 17:42 Dose: Not Given Tigecycline 50 mg/ Sodium (Chloride) 100 mls @ 100 mls/hr IVPB Q12H [facility] Last Admin: 02/28/17 19:46 Dose: 100 mls/hr Dextrose (Dextrose 5% In Water 1000 Ml) 1,000 mls @ 0 mls/hr IV .Q0M PRN; Protocol; Per Protocol PRN Reason: Hypoglycemia Protocol Metronidazole (Flagyl) 500 mg in 100 mls @ 100 mls/hr IVPB Q8 [facility] Last Admin: 03/01/17 05:28 Dose: 100 mls/hr Dextrose (Dextrose 10% In Water) 1,000 mls @ 30 mls/hr IV .Q24H [facility] Ibuprofen (Motrin Tab) 400 mg PO Q6H PRN PRN Reason: Pain, moderate (4-7) Last Admin: 02/28/17 14:49 Dose: 400 mg Insulin Glargine (Lantus) 15 unit SC HS [facility] Insulin Human Regular (Novolin R) 0 unit SC ACHS [facility] PRN Reason: Protocol Last Admin: 02/28/17 22:35 Dose: Not Given Latanoprost (Xalatan Opht) 0.02 ml OU HS [facility] Last Admin: 02/28/17 22:32 Dose: 0.02 ml Losartan Potassium (Cozaar) 100 mg PO DAILY [facility] Last Admin: 02/28/17 15:49 Dose: Not Given Rosuvastatin Calcium (Crestor) 10 mg PO HS [facility] Last Admin: 02/28/17 22:32 Dose: 10 mg Timolol Maleate (Timoptic 0.5% Oph Soln) 1 drop OU BID [facility] Last Admin: 02/28/17 17:43 Dose: 1 drop Vancomycin HCl (Vancocin (Oral Or Rectal Use)) 125 mg PO QID [facility] Last Admin: 02/28/17 22:35 Dose: 125 mg Vitamin B Complex/Vit C/Folic Acid (Nephro-Alonzo) 1 tab PO 0800 [facility] Last Admin: 02/28/17 08:27 Dose: Not Given - Labs Labs: 02/28/17 09:58 02/28/17 09:58 PT 12.3 SECONDS (9.7-12.2) H 02/18/17 05:30 INR 1.1 02/18/17 05:30 APTT 30 SECONDS (21-34) 02/18/17 05:30
[2017-03-01 08:26] LABS: ALB/GLOB RATIO 0.9 (1.0-2.1); BILIRUBIN,TOTAL 0.5 mg/dL (0.2-1.3); TOTAL PROTEIN 4.6 g/dL (6.3-8.3)
[2017-03-01 08:27] LABS: CALCIUM 6.8 mg/dl (8.6-10.4); MAGNESIUM 1.8 mg/dL (1.6-2.3)
[2017-03-01 08:57] LABS: ARTERIAL BLOOD HGB O2 SAT 95.9 % (95.0-98.0); CARBOXYHEMOGLOBIN 2.1 % (0.5-1.5); DRAW SITE LF; HHB 1.1 % (0.0-5.0); METHEMOGLOBIN 0.9 % (0.0-3.0)
[2017-03-01] MEDS: Multivitamin Vitamin B Complex (Nephro-Vite) Tab PO SCH (10:00)
--- NOTE | 2017-03-01 11:21 | CP.PCM.CON ---
History of Present Illness - History of Present Illness History of Present Illness: CC: Poor PO intake HPI: GI consult requested on this frail woman with multiple medical problems who has poot PO intake. Patient was admitted on Feb 18 with CDiff colitis, uncontrolled Diabetes, renal failure, and an infected Diabetic ulcer. Her at bedside reports that patient for the past week ahs not been able to swallow food. I ahd seen the patient on a recent previous admission with similar medical problems complicated by nausea. Patient is presently lethargic and not capable of providing any medical history or cooperating with physical examination. Review of Systems - Review of Systems Systems not reviewed;Unavailable: Altered Mental Status Past Patient History - Infectious Disease Hx of Infectious Diseases: None - Tetanus Immunizations Tetanus Immunization: Unknown - Past Medical History & Family History Past Medical History?: Yes - Past Social History Smoking Status: Never Smoked - CARDIAC Hx Hypercholesterolemia: Yes Hx Hypertension: Yes - PULMONARY Hx Respiratory Disorders: No - NEUROLOGICAL Hx Neurological Disorder: No - HEENT Hx HEENT Problems: Yes Hx Cataracts: Yes - RENAL Hx Chronic Kidney Disease: Yes - ENDOCRINE/METABOLIC Hx Diabetes Mellitus Type 2: Yes - HEMATOLOGICAL/ONCOLOGICAL Hx Anemia: Yes Hx Human Immunodeficiency Virus (HIV): No - INTEGUMENTARY Hx Dermatological Problems: No - MUSCULOSKELETAL/RHEUMATOLOGICAL Hx Musculoskeletal Disorders: Yes Hx Degenerative Joint Disease: Yes - GENITOURINARY/GYNECOLOGICAL Hx Genitourinary Disorders: Yes Hx Urinary Tract Infection: Yes - PSYCHIATRIC Hx Anxiety: Yes Hx Depression: Yes Hx Substance Use: No - SURGICAL HISTORY Hx Appendectomy: Yes - ANESTHESIA Hx Anesthesia: Yes Hx Anesthesia Reactions: No Hx Malignant Hyperthermia: No Meds Home Medications: Home Medication List Medication Instructions Recorded Confirmed Type Brimonidine 0.2% [Alphagan 0.2% 1 ml OU TID bottle 02/23/17 Rx Opht] Cefepime [Maxipime] 1 gm IVPB Q24H vial 02/23/17 Rx Epoetin Maxwell [Procrit] 10,000 unit IV TTS ml 02/23/17 Rx Ferric Sodium Gluconat Complex 125 mg IVPB TTS vial 02/23/17 Rx [Ferrlecit] Furosemide [Lasix] 40 mg PO DAILY tab 02/23/17 Rx Heparin 5,000 units SC Q8 vial 02/23/17 Rx Insulin Glargine, Recombina 30 unit SC HS unit 02/23/17 Rx [Lantus] Insulin Human Regular [Novolin R] 0 unit SC ACHS unit 02/23/17 Rx Latanoprost 0.005% Opht [Xalatan 0.02 ml OU HS bottle 02/23/17 Rx Opht] Linezolid [Zyvox] 600 mg PO BID tab 02/23/17 Rx Losartan [Cozaar] 100 mg PO DAILY tab 02/23/17 Rx Metronidazole [Flagyl] 500 mg PO Q8H 10 Days #30 tablet 02/23/17 Rx Rosuvastatin Calcium [Crestor] 10 mg PO HS tab 02/23/17 Rx Thiamine [Vitamin B1 Inj] 100 mg IV Q8H vial 02/23/17 Rx Timolol 0.5% Ophth [Timoptic 0.5% 1 drop OU BID bottle 02/23/17 Rx Ophth Soln] Vancomycin [Vancocin (ORAL OR 125 mg PO QID soln 02/23/17 Rx RECTAL USE)] amLODIPine [Norvasc] 5 mg PO DAILY tab 02/23/17 Rx hydrALAZINE [Apresoline] 25 mg PO BID tab 02/23/17 Rx Allergies/Adverse Reactions: Allergies Allergy/AdvReac Type Severity Reaction Status Date / Time No Known Allergies Allergy Verified 12/20/16 14:34 - Medications Medications: Current Medications Acetaminophen (Tylenol 325mg Tab) 650 mg PO Q6 PRN PRN Reason: Pain, Mild (1-3) Last Admin: 02/28/17 14:48 Dose: 650 mg Amlodipine Besylate (Norvasc) 5 mg PO DAILY [facility] Last Admin: 02/28/17 14:28 Dose: Not Given Ascorbic Acid (Vitamin C 500 Mg Tab) 500 mg PO DAILY [facility] Last Admin: 02/28/17 14:29 Dose: Not Given Brimonidine Tartrate (Alphagan 0.2% Opht) 1 ml OU TID [facility] Last Admin: 02/28/17 17:43 Dose: 1 drop Dextrose (Dextrose 50% Inj) 0 ml IV STAT PRN; Protocol PRN Reason: Hyglycemia Protocol Dextrose (Glutose 15) 0 gm PO ONCE PRN; Protocol PRN Reason: Hypoglycemia Protocol Epoetin Maxwell (Procrit) 10,000 unit IV TTS [facility] Stop: 03/03/17 10:01 Last Admin: 02/28/17 10:40 Dose: 10,000 unit Ergocalciferol (Drisdol 50,000 Intl Units Cap) 1 cap PO QWK [facility] Last Admin: 02/26/17 10:51 Dose: Not Given Furosemide (Lasix) 40 mg PO DAILY [facility] Last Admin: 02/28/17 14:28 Dose: Not Given Glucagon (Glucagen Diagnostic Kit) 0 mg IM STAT PRN; Protocol PRN Reason: Hypoglycemia Protocol Heparin Sodium (Porcine) (Heparin) 3,700 units IVP TTS [facility] Last Admin: 02/28/17 10:41 Dose: 3,700 units Heparin Sodium (Porcine) (Heparin) 5,000 units SC Q8 [facility] Last Admin: 03/01/17 05:31 Dose: 5,000 units Hydralazine HCl (Apresoline) 25 mg PO BID [facility] Last Admin: 02/28/17 17:42 Dose: Not Given Tigecycline 50 mg/ Sodium (Chloride) 100 mls @ 100 mls/hr IVPB Q12H [facility] Last Admin: 02/28/17 19:46 Dose: 100 mls/hr Dextrose (Dextrose 5% In Water 1000 Ml) 1,000 mls @ 0 mls/hr IV .Q0M PRN; Protocol; Per Protocol PRN Reason: Hypoglycemia Protocol Metronidazole (Flagyl) 500 mg in 100 mls @ 100 mls/hr IVPB Q8 [facility] Last Admin: 03/01/17 05:28 Dose: 100 mls/hr Insulin Glargine (Lantus) 15 unit SC HS [facility] Insulin Human Regular (Novolin R) 0 unit SC ACHS [facility] PRN Reason: Protocol Last Admin: 02/28/17 22:35 Dose: Not Given Latanoprost (Xalatan Opht) 0.02 ml OU HS [facility] Last Admin: 02/28/17 22:32 Dose: 0.02 ml Losartan Potassium (Cozaar) 100 mg PO DAILY [facility] Last Admin: 02/28/17 15:49 Dose: Not Given Rosuvastatin Calcium (Crestor) 10 mg PO HS [facility] Last Admin: 02/28/17 22:32 Dose: 10 mg Timolol Maleate (Timoptic 0.5% Ophth Soln) 1 drop OU BID [facility] Last Admin: 02/28/17 17:43 Dose: 1 drop Vancomycin HCl (Vancocin (Oral Or Rectal Use)) 125 mg PO QID [facility] Last Admin: 02/28/17 22:35 Dose: 125 mg Vitamin B Complex/Vit C/Folic Acid (Nephro-Alonzo) 1 tab PO 0800 [facility] Last Admin: 02/28/17 08:27 Dose: Not Given Physical Exam - Constitutional Appears: Older Than Stated Age, Chronically Ill - Head Exam Head Exam: NORMOCEPHALIC - Eye Exam Eye Exam: absent: Scleral icterus - ENT Exam Additional comments: Unable to examine - Respiratory Exam Respiratory Exam: NORMAL BREATHING PATTERN - Cardiovascular Exam Cardiovascular Exam: REGULAR RHYTHM - GI/Abdominal Exam GI & Abdominal Exam: Soft. absent: Tenderness Results - Vital Signs Recent Vital Signs: Last Vital Signs Temp 97.8 F 03/01/17 08:15 Pulse 59 L 03/01/17 08:15 Resp 18 03/01/17 08:15 BP 112/56 L 03/01/17 08:15 Pulse Ox 96 03/01/17 08:15 - Labs Result Diagrams: 02/28/17 09:58 03/01/17 07:56 Labs: Laboratory Results - last 24 hr 02/28/17 02/28/17 02/28/17 11:48 16:36 21:20 Puncture Site pCO2 pO2 HCO3 ABG pH ABG Total CO2 ABG O2 Saturation ABG Base Excess ABG Hemoglobin ABG Carboxyhemoglobin POC ABG HHb (Measured) ABG Methemoglobin Joey Test VBG pH VBG pCO2 VBG HCO3 VBG Total CO2 VBG O2 Sat (Calc) VBG Base Excess VBG Potassium A-a O2 Difference Respiratory Index Hgb O2 Saturation Sodium Chloride Glucose Lactate Liter Flow FiO2 Potassium Carbon Dioxide Anion Gap BUN Creatinine Est GFR ( Amer) Est GFR (Non-Af Amer) POC Glucose (mg/dL) 134 H 79 99 Random Glucose Calcium Phosphorus Magnesium Total Bilirubin AST ALT Alkaline Phosphatase Total Protein Albumin Globulin Albumin/Globulin Ratio Venous Blood Potassium 03/01/17 03/01/17 03/01/17 07:39 07:56 08:53 Puncture Site Lf pCO2 47 H pO2 164 H 123 H HCO3 26.1 ABG pH 7.37 ABG Total CO2 28.6 H ABG O2 Saturation 98.9 H ABG Base Excess 1.5 ABG Hemoglobin 9.3 L ABG Carboxyhemoglobin 2.1 H POC ABG HHb (Measured) 1.1 ABG Methemoglobin 0.9 Joey Test Na VBG pH 7.41 VBG pCO2 42 VBG HCO3 26.3 VBG Total CO2 27.9 VBG O2 Sat (Calc) 98.8 H VBG Base Excess 1.7 VBG Potassium 3.8 A-a O2 Difference 11.0 Respiratory Index 0.1 Hgb O2 Saturation 95.9 Sodium 133.0 126 L Chloride 101.0 94 L Glucose 200 H Lactate 2.8 H Liter Flow 2.0 FiO2 27.0 Potassium 3.6 Carbon Dioxide 21 L Anion Gap 15 BUN 44 H Creatinine 2.0 H Est GFR ( Amer) 30 Est GFR (Non-Af Amer) 25 POC Glucose (mg/dL) Random Glucose 185 H Calcium 6.8 L Phosphorus 5.0 H Magnesium 1.8 Total Bilirubin 0.5 AST 29 ALT 21 Alkaline Phosphatase 111 Total Protein 4.6 L Albumin 2.1 L Globulin 2.5 Albumin/Globulin Ratio 0.9 L Venous Blood Potassium 3.8 Assessment & Plan (1) Clostridium difficile colitis Assessment and Plan: On Vancomycin and Flagyl. Has been managed by medical team Status: Acute (2) Change in mental status Assessment and Plan: Was hypoglycemic Managed by medical team Status: Acute (3) End stage renal disease on dialysis Status: Acute (4) Heel ulcer Assessment and Plan: S/P several debridements by vascular surgery Status: Acute (5) IDDM (insulin dependent diabetes mellitus) Status: Chronic Priority: Medium (6) Dysphagia Assessment and Plan: Onset x [address] scan does not show acute CVA. R/O Esophageal candidiasis Will treat empirically for Mervat, and if not improving will need EGD Status: Acute - Date & Time Date: 03/01/17 Time: 11:26
[2017-03-01] MEDS: Vancomycin 125 MG/5 ML SOLN (ORAL/RECTAL) PO SCH ×4 (11:30→21:27)
[2017-03-01 11:41] LABS: BASO # 0.1 K/uL (0.0-0.2); BASO % 0.4 % (0.0-2.0); EOS # 0.2 K/uL (0.0-0.7); EOS % 0.8 % (0.0-4.0); HEMATOCRIT 29.5 % (34.0-47.0); LYMPH # 1.4 K/uL (1.0-4.3); LYMPH % 6.2 % (20.0-40.0); MEAN CELL VOLUME 90.2 fL (81.0-99.0); MEAN CORPUSCULAR HEMOGLOBIN 28.1 pg (27.0-31.0); MEAN CORPUSCULAR HGB CONC 31.2 g/dL (33.0-37.0); MONO # 1.5 K/uL (0.0-0.8); MONO % 6.9 % (0.0-10.0); NRBC % 0.2 % (0.0-2.0); PLATELET COUNT 175 K/uL (130-400); RED CELL DISTRIBUTION WIDTH 19.6 % (11.5-14.5); WHITE BLOOD COUNT 21.7 K/uL (4.8-10.8)
[2017-03-01 11:42] LABS: DRAW SITE LFA
[2017-03-01 11:49] LABS: POTASSIUM 3.2 mmol/L (3.6-5.2)
[2017-03-01 11:51] LABS: ALB/GLOB RATIO 0.9 (1.0-2.1); BILIRUBIN,TOTAL 0.4 mg/dL (0.2-1.3); TOTAL PROTEIN 4.5 g/dL (6.3-8.3)
[2017-03-01 11:52] LABS: CALCIUM 6.9 mg/dl (8.6-10.4)
[2017-03-01 12:41] LABS: NEUTROPHIL 90 % (50-75); TOTAL CELLS COUNTED 100
--- NOTE | 2017-03-01 12:46 | RAD ---
HISTORY: Assess pleural effusions. Technique: Single view portable semi erect @ 07:35 COMPARISON: 02/18/2017 FINDINGS: LUNGS: Stable consolidative changes primarily affecting left lower lobe and lingula PLEURA: Stable large left pleural effusion resulting in compressive atelectasis left lung CARDIOVASCULAR: Stable cardiomegaly. Venous access catheter in stable, satisfactory position. OSSEOUS STRUCTURES: No significant abnormalities. VISUALIZED UPPER ABDOMEN: Normal. OTHER FINDINGS: None. IMPRESSION: Stable large left pleural effusion and underlying compressive atelectasis/ infiltrates.
[2017-03-01] MEDS: Nystatin 100,000 Units/ml Oral Susp 5 ml UD PO SCH ×3 (14:16→21:24)
--- NOTE | 2017-03-01 15:37 | VAS ---
DATE: 02/26/2017 PREOPERATIVE DIAGNOSIS: Gangrene of left foot. PROCEDURE CARRIED OUT: Aortofemoral angiogram with selective catheterization of left femoral artery via right groin, balloon angioplasty of the popliteal artery using a 4 mm drug-coated balloon and pathway atherectomy and balloon angioplasty using 2 to 2.5 tapered balloon of the anterior tibial artery. SURGEON: Ignacio Broussard Jr., MD [employer]IC: None. ANESTHESIOLOGIST: Dr. Alvarado. ANESTHESIA: Local with sedation. INDICATIONS: The patient is a 71-year-old woman whom I initially recommended an amputation. Family refused this. She has gangrene in the lateral aspect of the foot. vascularization may not be able to be saved. OPERATIVE FINDINGS: The renal arteries were poorly visualized, but the aorta, common iliac, external iliac and internal iliac arteries as well as the common femoral arteries and profunda femoris arteries were widely patent. On the right side, there was evidence of previous intervention in the right anterior tibial artery, which was widely patent down to the level of the foot. On the left side, the popliteal artery was diffusely diseased as much as 60% to 70% stenosis at the knee joint. Below this, all 3 tibial vessels were occluded with reconstitution of small dorsalis pedis in the foot. The anterior tibial artery was studied throughout and occluded in multiple segments. Subsequent to the performance of a diagnostic arteriogram, a stiff-angled Glidewire was advanced over the aortic bifurcation and the catheter placed in the 7-Comoran sheath position in the distal popliteal artery using road-mapping techniques. , we were able to cannulate the anterior tibial artery which rapidly went down to the level of the foot, dorsalis pedis. We then carried out the pathway atherectomy of this. We were unable to advance calcified lesion in that portion. With a variety of balloons and techniques, we were able to eventually passed this and dilated this. We dilated from the level of the ankle all the way up to the popliteal artery using a 2 to 2.5 tapered balloon. The final cosmetic results were excellent. We then carried out balloon angioplasty of the stenosis of the popliteal artery using a 4-mm balloon with excellent cosmetic results. After these have been done, a Perclose device was deployed in the right groin. PROCEDURE CARRIED OUT: Aortofemoral angiogram with selective catheterization of the left femoral artery. Balloon angioplasty of left popliteal artery using drug-coated balloon and pathway atherectomy and balloon angioplasty of the anterior tibial artery. Ignacio Broussard Jr., MD CC: Bneson Myrick MD
--- NOTE | 2017-03-01 17:31 | CP.PCM.PN ---
Subjective - Date & Time of Evaluation Date of Evaluation: 03/01/17 Time of Evaluation: 08:00 - Subjective Subjective: seen by SHANKAR simmons added Objective - Vital Signs/Intake and Output Vital Signs (last 24 hours): Temp Pulse Resp BP Pulse Ox 97.3 F L 70 20 184/81 H 100 03/01/17 15:19 03/01/17 15:36 03/01/17 15:19 03/01/17 15:36 03/01/17 15:19 Intake and Output: 03/01/17 03/01/17 06:59 18:59 Intake Total 300 Output Total 1 Balance 299 - Medications Medications: Current Medications Acetaminophen (Tylenol 325mg Tab) 650 mg PO Q6 PRN PRN Reason: Pain, Mild (1-3) Last Admin: 02/28/17 14:48 Dose: 650 mg Amlodipine Besylate (Norvasc) 5 mg PO DAILY [facility] Last Admin: 03/01/17 10:00 Dose: Not Given Ascorbic Acid (Vitamin C 500 Mg Tab) 500 mg PO DAILY [facility] Last Admin: 03/01/17 10:00 Dose: Not Given Brimonidine Tartrate (Alphagan 0.2% Opht) 1 ml OU TID [facility] Last Admin: 02/28/17 17:43 Dose: 1 drop Dextrose (Dextrose 50% Inj) 0 ml IV STAT PRN; Protocol PRN Reason: Hyglycemia Protocol Dextrose (Glutose 15) 0 gm PO ONCE PRN; Protocol PRN Reason: Hypoglycemia Protocol Epoetin Maxwell (Procrit) 10,000 unit IV TTS [facility] Stop: 03/03/17 10:01 Last Admin: 02/28/17 10:40 Dose: 10,000 unit Ergocalciferol (Drisdol 50,000 Intl Units Cap) 1 cap PO QWK [facility] Last Admin: 02/26/17 10:51 Dose: Not Given Furosemide (Lasix) 40 mg PO DAILY [facility] Last Admin: 03/01/17 11:30 Dose: Not Given Glucagon (Glucagen Diagnostic Kit) 0 mg IM STAT PRN; Protocol PRN Reason: Hypoglycemia Protocol Heparin Sodium (Porcine) (Heparin) 3,700 units IVP TTS [facility] Last Admin: 02/28/17 10:41 Dose: 3,700 units Heparin Sodium (Porcine) (Heparin) 5,000 units SC Q8 [facility] Last Admin: 03/01/17 14:16 Dose: 5,000 units Hydralazine HCl (Apresoline) 25 mg PO BID [facility] Last Admin: 03/01/17 10:00 Dose: Not Given Tigecycline 50 mg/ Sodium (Chloride) 100 mls @ 100 mls/hr IVPB Q12H [facility] Last Admin: 03/01/17 11:30 Dose: 100 mls/hr Dextrose (Dextrose 5% In Water 1000 Ml) 1,000 mls @ 0 mls/hr IV .Q0M PRN; Protocol; Per Protocol PRN Reason: Hypoglycemia Protocol Metronidazole (Flagyl) 500 mg in 100 mls @ 100 mls/hr IVPB Q8 [facility] Last Admin: 03/01/17 14:15 Dose: 100 mls/hr Potassium Chloride (Potassium Chloride 20 Meq/100 Ml) 20 meq in 100 mls @ 50 mls/hr IVPB Q2H [facility] Stop: 03/01/17 21:29 Last Admin: 03/01/17 15:36 Dose: 50 mls/hr Sodium Chloride 35 meq/Magnesium Sulfate 6 meq/Calcium Gluconate 4.5 meq/ Heparin Sodium (Porcine) 1,000 units/ Amino Acids 1,020.9052 mls @ 42 mls/hr IV .Q24H [facility] Stop: 03/02/17 17:59 Insulin Glargine (Lantus) 15 unit SC [facility] Insulin Human Regular (Novolin R) 0 unit SC [facility] PRN Reason: Protocol Last Admin: 03/01/17 12:00 Dose: Not Given Latanoprost (Xalatan Opht) 0.02 ml OU HS [facility] Last Admin: 02/28/17 22:32 Dose: 0.02 ml Losartan Potassium (Cozaar) 100 mg PO DAILY [facility] Last Admin: 03/01/17 10:00 Dose: Not Given Nystatin (Nystatin Oral Susp) 5 ml PO QID [facility] Last Admin: 03/01/17 14:16 Dose: 5 ml Rosuvastatin Calcium (Crestor) 10 mg PO HS [facility] Last Admin: 02/28/17 22:32 Dose: 10 mg Timolol Maleate (Timoptic 0.5% Ophth Soln) 1 drop OU BID [facility] Last Admin: 03/01/17 10:00 Dose: Not Given Vancomycin HCl (Vancocin (Oral Or Rectal Use)) 125 mg PO QID [facility] Last Admin: 03/01/17 14:15 Dose: 125 mg Vitamin B Complex/Vit C/Folic Acid (Nephro-Alonzo) 1 tab PO 0800 [facility] Last Admin: 03/01/17 10:00 Dose: Not Given - Labs Labs: 03/01/17 11:37 03/01/17 11:37 PT 12.3 SECONDS (9.7-12.2) H 02/18/17 05:30 INR 1.1 02/18/17 05:30 APTT 30 SECONDS (21-34) 02/18/17 05:30 - Constitutional Appears: Non-toxic, Cachectic, Chronically Ill - Head Exam Head Exam: NORMOCEPHALIC - Eye Exam Eye Exam: PERRL. absent: Scleral icterus - ENT Exam ENT Exam: Mucous Membranes Dry - Neck Exam Neck Exam: absent: Lymphadenopathy - Respiratory Exam Respiratory Exam: Decreased Breath Sounds - Cardiovascular Exam Cardiovascular Exam: REGULAR RHYTHM - GI/Abdominal Exam GI & Abdominal Exam: Distended, Soft. absent: Tenderness - Rectal Exam Rectal Exam: Deferred - Extremities Exam Extremities Exam: Pedal Edema, Tenderness. absent: Calf Tenderness - Back Exam Back Exam: absent: CVA tenderness (L), CVA tenderness (R) - Neurological Exam Neurological Exam: Alert, Awake, Oriented x3 Assessment and Plan (1) Change in mental status Status: Acute (2) End stage renal disease on dialysis Status: Acute (3) Heel ulcer Status: Acute (4) IDDM (insulin dependent diabetes mellitus) Status: Chronic - Assessment and Plan (Free Text) Assessment: cont iv antibiotics, wound care and HD
[2017-03-01] MEDS ORDERED: *** TPN # 1 IV ONE (18:00)
[2017-03-01] MEDS: Brimonidine 0.2% Opth Sol (5ml) OU SCH (18:00)
--- NOTE | 2017-03-01 18:13 | CP.PCM.PN ---
<Rohini Nogueira - Last Filed: 03/01/17 17:57> Subjective - Date & Time of Evaluation Date of Evaluation: 03/01/17 Time of Evaluation: 08:00 - Subjective Subjective: Medicine Progress Note Patient seen and examined multiple times throughout day. See SUBSEA ENGINEER note for more information. Patient is obtunded due to medication effect so ROS could not be obtained. Family members at bedside aware of condition. Objective - Vital Signs/Intake and Output Vital Signs (last 24 hours): Temp Pulse Resp BP Pulse Ox 97.3 F L 70 20 184/81 H 100 03/01/17 15:19 03/01/17 15:36 03/01/17 15:19 03/01/17 15:36 03/01/17 15:19 Intake and Output: 03/01/17 03/01/17 06:59 18:59 Intake Total 300 200 Output Total 1 Balance 299 200 - Medications Medications: Current Medications Acetaminophen (Tylenol 325mg Tab) 650 mg PO Q6 PRN PRN Reason: Pain, Mild (1-3) Last Admin: 02/28/17 14:48 Dose: 650 mg Amlodipine Besylate (Norvasc) 5 mg PO DAILY [facility] Last Admin: 03/01/17 10:00 Dose: Not Given Ascorbic Acid (Vitamin C 500 Mg Tab) 500 mg PO DAILY [facility] Last Admin: 03/01/17 10:00 Dose: Not Given Brimonidine Tartrate (Alphagan 0.2% Opht) 1 ml OU TID [facility] Last Admin: 02/28/17 17:43 Dose: 1 drop Dextrose (Dextrose 50% Inj) 0 ml IV STAT PRN; Protocol PRN Reason: Hyglycemia Protocol Dextrose (Glutose 15) 0 gm PO ONCE PRN; Protocol PRN Reason: Hypoglycemia Protocol Epoetin Maxwell (Procrit) 10,000 unit IV TTS [facility] Stop: 03/03/17 10:01 Last Admin: 02/28/17 10:40 Dose: 10,000 unit Ergocalciferol (Drisdol 50,000 Intl Units Cap) 1 cap PO QWK [facility] Last Admin: 02/26/17 10:51 Dose: Not Given Furosemide (Lasix) 40 mg PO DAILY [facility] Last Admin: 03/01/17 11:30 Dose: Not Given Glucagon (Glucagen Diagnostic Kit) 0 mg IM STAT PRN; Protocol PRN Reason: Hypoglycemia Protocol Heparin Sodium (Porcine) (Heparin) 3,700 units IVP TTS [facility] Last Admin: 02/28/17 10:41 Dose: 3,700 units Heparin Sodium (Porcine) (Heparin) 5,000 units SC Q8 [facility] Last Admin: 03/01/17 14:16 Dose: 5,000 units Hydralazine HCl (Apresoline) 25 mg PO BID [facility] Last Admin: 03/01/17 10:00 Dose: Not Given Tigecycline 50 mg/ Sodium (Chloride) 100 mls @ 100 mls/hr IVPB Q12H [facility] Last Admin: 03/01/17 11:30 Dose: 100 mls/hr Dextrose (Dextrose 5% In Water 1000 Ml) 1,000 mls @ 0 mls/hr IV .Q0M PRN; Protocol; Per Protocol PRN Reason: Hypoglycemia Protocol Metronidazole (Flagyl) 500 mg in 100 mls @ 100 mls/hr IVPB Q8 [facility] Last Admin: 03/01/17 14:15 Dose: 100 mls/hr Potassium Chloride (Potassium Chloride 20 Meq/100 Ml) 20 meq in 100 mls @ 50 mls/hr IVPB Q2H [facility] Stop: 03/01/17 21:29 Last Admin: 03/01/17 17:29 Dose: 50 mls/hr Sodium Chloride 35 meq/Magnesium Sulfate 6 meq/Calcium Gluconate 4.5 meq/ Heparin Sodium (Porcine) 1,000 units/ Amino Acids 1,020.9052 mls @ 42 mls/hr IV .Q24H ONE Stop: 03/02/17 17:59 Insulin Glargine (Lantus) 15 unit SC HS [facility] Insulin Human Regular (Novolin R) 0 unit SC ACHS [facility] PRN Reason: Protocol Last Admin: 03/01/17 12:00 Dose: Not Given Latanoprost (Xalatan Opht) 0.02 ml OU HS [facility] Last Admin: 02/28/17 22:32 Dose: 0.02 ml Losartan Potassium (Cozaar) 100 mg PO DAILY [facility] Last Admin: 03/01/17 10:00 Dose: Not Given Nystatin (Nystatin Oral Susp) 5 ml PO QID [facility] Last Admin: 03/01/17 14:16 Dose: 5 ml Rosuvastatin Calcium (Crestor) 10 mg PO HS [facility] Last Admin: 02/28/17 22:32 Dose: 10 mg Timolol Maleate (Timoptic 0.5% [facility]) 1 drop OU BID [facility] Last Admin: 03/01/17 10:00 Dose: Not Given Vancomycin HCl (Vancocin (Oral Or Rectal Use)) 125 mg PO QID [facility] Last Admin: 03/01/17 14:15 Dose: 125 mg Vitamin B Complex/Vit C/Folic Acid (Nephro-Alonzo) 1 tab PO 0800 [facility] Last Admin: 03/01/17 10:00 Dose: Not Given - Labs Labs: 03/01/17 11:37 03/01/17 11:37 PT 12.3 SECONDS (9.7-12.2) H 02/18/17 05:30 INR 1.1 02/18/17 05:30 APTT 30 SECONDS (21-34) 02/18/17 05:30 - Additional Findings Additional findings: - Constitutional Appears: No Acute Distress, obtunded - Head Exam Head Exam: ATRAUMATIC, NORMOCEPHALIC - Eye Exam Eye Exam: EOMI, Normal appearance, pupils sluggish - ENT Exam ENT Exam: Mucous Membranes Moist - Respiratory Exam Respiratory Exam: Left lower lobe rhales. absent: Rhonchi, Wheezes, Respiratory Distress - Cardiovascular Exam Cardiovascular Exam: REGULAR RHYTHM, +S1, +S2 - GI/Abdominal Exam GI & Abdominal Exam: Soft, Normal Bowel Sounds - Extremities Exam Additional comments: Left lower lateral foot ulcer, wound vac on - Neurological Exam Neurological Exam: absent: Alert, Awake Obtunded, responding to painful stimuli - Skin Skin Exam: Warm Assessment and Plan - Assessment and Plan (Free Text) Assessment: 1. Non-Healing Left Heel Ulcer 03/01: POD #2 s/p debridement of L foot ulcer. Patient's WBC increased to 21.7 with left shift. Lactate 2.8--> repeat 1.9; recheck blood cultures today. Plan to change wound vac on foot tomorrow. 02/26/17: Patient underwent aortofemoral angiogram via right groin with selective catheterization of left anterior femoral artery. Balloon angioplasty of popliteal artery. Pathway arthrectomy and balloon angioplasty of anterior tibial artery. 02/27/17: Debridement of left foot ulcer with wound vac placed and cultures taken. Podiatry consult - Dr. Avery, help appreciated Infectious Disease Dr. Wellington consulted, help appreciated. Dr. Broussard on board, help appreciated. Low ext arterial duplex (02/04/17): R- occlusion R post tib artery, 50-75% stenosis right mid popliteal & proximal anterior tib arteries L- occlusion of left post tib artery, >75% stenosis left proximal ant tibial artery, 50-75% stenosis left distal SFA & proximal popliteal a. Vancomycin 1000 mg IV [facility] D/C'ed on 02/22/17 Cefepime 1 gm IV Q24H 02/18/17 to 02/23/17 Zyvox 600 mg PO BID started 02/22/17-02/23/17 Current antibiotics: Tygacil 100 mg loading dose on 02/25/17 and then continued as Tygacil 50 mg IV Q12H, Vanco 125mg PO QID, Flagyl 500mg IV q8h Abdominal Angiography 02/19/17: Severe bilateral lower extremity arterial runoff with 1 vessel likely remaining patent at the right. None is continuously patent at the left lower extremity [id number]. Widely patent abdominal aorta and iliac arterial system with moderate right and [id number] left femoral arterial disease. Severe bilateral popliteal artery arterial disease. Dr. Avery recommended Left BKA given his physical exam findings. Dr. Broussard also recommends the left BKA. He stated that even if the gangrenous portion is removed, it will not heal regardless of revascularization. As of 02/25, the patient's family has decided for her to stay and have Dr. Broussard clean the wound and improve the circulation in the leg. Before this, they were adamant about getting the patient to [facility] for hyperbaric therapy to try to salvage the leg. They still do not wish for amputation at this time. 2. Left Pleural Effusion 03/01: Chest X-ray ordered showed left sided pleural effusion new since admission (see full report) f/u CT chest without contrast Ordered thoracentesis with fluid studies Consulted Retrimmer Dr Rama osman f/u recommendations 3. C. Diff C. Diff studies positive Patient on isolation contact precaution Vancomycin 125 mg PO QID started Dr. Wellington added Flagyl 500 mg IV Q8H f/u repeat C diff and stool culture on 02/28 4. Altered Mental Status 03/01: Patient obtunded this AM due to Gabapentin that was given night prior ( renally excreted). Gabapentin was discontinued. Repeat CT head without contrast was ordered this morning which was negative for acute infarct. Avoid pain medications that are renally excreted at this time. CT Head negative for Acute Territorial Infarction Patient found hypoglycemic by both and EMS with symptoms that suggest seizure episode. Patient is a poorly controlled diabetic. Monitor Accuchecks qACHS and Q4H Patient likely had an episode of neuroglycopenia and currently in post-ictal state. Due to post-ictal state, decision made to avoid narcotic pain medications. PRINTING GREY CLOTH TENDER performed successful bedside swallow eval and recommended Pureed diet with thin liquids. Home PO meds restarted. Neurology consult Dr. Tanisha Aguirre, help appreciated. Thiamine 100 mg Q8H Could not get brain MRI which was neuro's recommendation due to 3 previous attempts where patient was moving too much. We do not wish to further sedate the patient due to her current mental state, so instead a repeat CT Head without contrast was done on 02/23/17. This CT head did not demonstrate any acute hemorrhagic or ischemic pathology. 5. End Stage Renal Disease on Hemodialysis On HD T,,S Dr. Ambrose nephrology consulted- help appreciated 6. Decreased oral intake 03/01: Patient unable to eat due to altered mental status. Status changed to NPO at this time. Starting TPN for nutrition to be given via PICC line. Albumin decreasing, 2.1 today 7. Hypertension 03/01: Patient normotensive, held oral BP medications due to NPO status. Given Lasix 20mg IV x1 dose. Will monitor BP q4h and given medications as needed. PO Home medications held * Norvasc 5 mg PO daily * Losartan 100 mg PO daily * Furosemide 40 mg PO daily * Held Bumex for now Monitor BP q6h and adjust meds as needed 8. Anemia of Chronic Disease Hgb stable Likely secondary to ESRD Dr. Ambrose put for IV ferlicet 125 mg and Procrit 10,000 units IV Monitor CBC daily 9. Diabetes 03/01: Patient having multiple episodes of hypoglycemia causing mental status change. Stopping standing insulin. See SUBSEA ENGINEER note for more information. Accuchecks qACHS [facility] Lantus 30 units SC HS- STOPPED Crestor 10mg PO HS 10. Prophylactic Measures SCDs Heparin 5000 units SC Q8H 1:1 observation due to agitation. Patient tries to get out of bed. Fall precautions Disposition: This patient has a very poor prognosis. The family wishes to try to save the leg despite multiple professional opinions on the necessity of an amputation. The family initially wished for the patient to go to [facility] where hyperbaric therapy is available in order to promote healing. They wished to be cared for by their personal hot tar roofer helper Dr. Ware; however, Dr. Ware has become unavailable. So the family decided to remain at [facility] and attempt healing via vascular surgery to improve circulation and wound debridement of damaged tissue. They were repeatedly warned by multiple medical transcriptionist of the risks associated with refusing a BKA and attempting to salvage the foot. The family verbalized understanding of the risks but still decide against a BKA at this time. <Benson Myrick Jr. - Last Filed: 03/08/17 12:04> Objective - Vital Signs/Intake and Output Vital Signs (last 24 hours): Temp Pulse Resp BP Pulse Ox 97.9 F 76 20 166/69 H 98 03/08/17 08:12 03/08/17 08:12 03/08/17 08:12 03/08/17 10:49 03/08/17 08:12 Intake and Output: 03/08/17 03/08/17 06:59 18:59 Intake Total 770 Balance 770 - Medications Medications: Current Medications Acetaminophen (Tylenol 325mg Tab) 650 mg PO Q6 PRN PRN Reason: Pain, Mild (1-3) Last Admin: 03/07/17 18:20 Dose: 650 mg Amlodipine Besylate (Norvasc) 5 mg PO DAILY [facility] Last Admin: 03/08/17 10:50 Dose: 5 mg Ascorbic Acid (Vitamin C 500 Mg Tab) 500 mg PO DAILY [facility] Last Admin: 03/08/17 10:49 Dose: 500 mg Brimonidine Tartrate (Alphagan 0.2% Opht) 1 ml OU TID [facility] Last Admin: 03/08/17 10:52 Dose: 1 drop Collagenase (Santyl) 0 gm TOP DAILY [facility] Last Admin: 03/08/17 10:50 Dose: Not Given Dextrose (Dextrose 50% Inj) 0 ml IV STAT PRN; Protocol PRN Reason: Hyglycemia Protocol Dextrose (Glutose 15) 0 gm PO ONCE PRN; Protocol PRN Reason: Hypoglycemia Protocol Epoetin Maxwell (Procrit) 10,000 unit IV TTS [facility] Last Admin: 03/07/17 11:29 Dose: 10,000 unit Ergocalciferol (Drisdol 50,000 Intl Units Cap) 1 cap PO QWK [facility] Last Admin: 03/05/17 14:54 Dose: 1 cap Furosemide (Lasix) 40 mg PO DAILY [facility] Last Admin: 03/08/17 10:49 Dose: 40 mg Glucagon (Glucagen Diagnostic Kit) 0 mg IM STAT PRN; Protocol PRN Reason: Hypoglycemia Protocol Heparin Sodium (Porcine) (Heparin) 5,000 units SC Q8 [facility] Last Admin: 03/08/17 04:59 Dose: 5,000 units Heparin Sodium (Porcine) (Heparin) 3,700 units IVP TTS [facility] Stop: 03/24/17 23:59 Last Admin: 03/07/17 11:20 Dose: 3,700 units Hydralazine HCl (Apresoline) 25 mg PO BID [facility] Last Admin: 03/08/17 10:49 Dose: 25 mg Hydromorphone HCl (Dilaudid) 0.5 mg IVP Q6H PRN PRN Reason: Pain, severe (8-10) Last Admin: 03/08/17 10:50 Dose: 0.5 mg Tigecycline 50 mg/ Sodium (Chloride) 100 mls @ 100 mls/hr IVPB Q12H [facility] Last Admin: 03/08/17 08:33 Dose: 100 mls/hr Fluconazole (Diflucan Iv 200 Mg/100 Ml Ns) 100 mls @ 100 mls/hr IVPB DAILY [facility] Last Admin: 03/08/17 11:03 Dose: 100 mls/hr Sodium Chloride 35 meq/Potassium Chloride 30 meq/Magnesium Sulfate 6 meq/ Calcium Gluconate 4.5 meq/Heparin Sodium (Porcine) 1,000 units/ Amino Acids 1, 035.9052 mls @ 63 mls/hr IV .[id number] [facility] Stop: 03/08/17 18:00 Last Admin: 03/08/17 11:03 Dose: 63 mls/hr Sodium Chloride 35 meq/Potassium Chloride 30 meq/Magnesium Sulfate 6 meq/ Calcium Gluconate 4.5 meq/Heparin Sodium (Porcine) 1,000 units/ Amino Acids 1, 035.9052 mls @ 63 mls/hr IV .[id number] ONE Stop: 03/09/17 10:26 Sodium Chloride 35 meq/Potassium Chloride 30 meq/Magnesium Sulfate 6 meq/ Calcium Gluconate 4.5 meq/Heparin Sodium (Porcine) 1,000 units/ Amino Acids 1, 035.9052 mls @ 63 mls/hr IV .[id number] [facility] Stop: 03/09/17 17:59 Insulin Glargine (Lantus) 25 unit SC HS [facility] Last Admin: 03/07/17 21:03 Dose: 25 unit Insulin Human Regular (Novolin R) 0 unit SC ACHS [facility] PRN Reason: Protocol Last Admin: 03/08/17 08:33 Dose: 12 unit Latanoprost (Xalatan Opht) 0.02 ml OU [facility] Last Admin: 03/07/17 21:13 Dose: Not Given Losartan Potassium (Cozaar) 100 mg PO DAILY [facility] Last Admin: 03/08/17 10:49 Dose: 100 mg Pantoprazole Sodium (Protonix Inj) 40 mg IVP Q12H [facility] Last Admin: 03/08/17 04:26 Dose: 40 mg Rosuvastatin Calcium (Crestor) 10 mg PO HS [facility] Last Admin: 03/07/17 21:07 Dose: 10 mg Timolol Maleate ([facility]) 1 drop OU BID [facility] Last Admin: 03/08/17 10:51 Dose: 1 drop Vitamin B Complex/Vit C/Folic Acid (Nephro-Alonzo) 1 tab PO 0800 [facility] Last Admin: 03/08/17 08:33 Dose: 1 tab - Labs Labs: 03/07/17 10:03 03/07/17 10:03 PT 12.3 SECONDS (9.7-12.2) H 02/18/17 05:30 INR 1.1 02/18/17 05:30 APTT 30 SECONDS (21-34) 02/18/17 05:30 Attending/Attestation - Attestation I have personally seen and examined this patient.: Yes I have fully participated in the care of the patient.: Yes I have reviewed all pertinent clinical information, including history, physical exam and plan: Yes Notes (Text): 03/08/17 12:04 Agree with resident note and plan of care
[2017-03-01] MEDS: Latanoprost 2.5 ml Opht Soln OU SCH (22:38)
[2017-03-02] MEDS: metroNIDAZOLE IV 500 mg/100 ml 500 MG/100 ML BAG IVPB SCH ×3 (06:03→22:22)
--- NOTE | 2017-03-02 08:14 | CP.PCM.PN ---
Subjective - Date & Time of Evaluation Date of Evaluation: 03/02/17 Time of Evaluation: 07:00 - Subjective Subjective: Surgery Note for Dr. Broussard Patient seen and examined at bedside and in no acute distress. Patient still very lethargic but opened her eyes to verbal stimulus. ROS unobtainable. Objective - Vital Signs/Intake and Output Vital Signs (last 24 hours): Temp Pulse Resp BP Pulse Ox 98.1 F 76 20 177/50 H 100 03/02/17 04:58 03/02/17 04:58 03/02/17 04:58 03/02/17 04:58 03/02/17 04:58 - Medications Medications: Current Medications Acetaminophen (Tylenol 325mg Tab) 650 mg PO Q6 PRN PRN Reason: Pain, Mild (1-3) Last Admin: 02/28/17 14:48 Dose: 650 mg Amlodipine Besylate (Norvasc) 5 mg PO DAILY [facility] Last Admin: 03/01/17 10:00 Dose: Not Given Ascorbic Acid (Vitamin C 500 Mg Tab) 500 mg PO DAILY [facility] Last Admin: 03/01/17 10:00 Dose: Not Given Brimonidine Tartrate (Alphagan 0.2% Opht) 1 ml OU TID [facility] Last Admin: 03/01/17 18:00 Dose: 1 drop Dextrose (Dextrose 50% Inj) 0 ml IV STAT PRN; Protocol PRN Reason: Hyglycemia Protocol Dextrose (Glutose 15) 0 gm PO ONCE PRN; Protocol PRN Reason: Hypoglycemia Protocol Epoetin Maxwell (Procrit) 10,000 unit IV TTS [facility] Stop: 03/03/17 10:01 Last Admin: 02/28/17 10:40 Dose: 10,000 unit Ergocalciferol (Drisdol 50,000 Intl Units Cap) 1 cap PO QWK [facility] Last Admin: 02/26/17 10:51 Dose: Not Given Furosemide (Lasix) 40 mg PO DAILY [facility] Last Admin: 03/01/17 11:30 Dose: Not Given Glucagon (Glucagen Diagnostic Kit) 0 mg IM STAT PRN; Protocol PRN Reason: Hypoglycemia Protocol Heparin Sodium (Porcine) (Heparin) 3,700 units IVP TTS [facility] Last Admin: 02/28/17 10:41 Dose: 3,700 units Heparin Sodium (Porcine) (Heparin) 5,000 units SC Q8 [facility] Last Admin: 03/02/17 06:07 Dose: 5,000 units Hydralazine HCl (Apresoline) 25 mg PO BID [facility] Last Admin: 03/01/17 18:51 Dose: Not Given Tigecycline 50 mg/ Sodium (Chloride) 100 mls @ 100 mls/hr IVPB Q12H [facility] Last Admin: 03/01/17 21:00 Dose: 100 mls/hr Dextrose (Dextrose 5% In Water 1000 Ml) 1,000 mls @ 0 mls/hr IV .Q0M PRN; Protocol; Per Protocol PRN Reason: Hypoglycemia Protocol Metronidazole (Flagyl) 500 mg in 100 mls @ 100 mls/hr IVPB Q8 [facility] Last Admin: 03/02/17 06:03 Dose: 100 mls/hr Sodium Chloride 35 meq/Magnesium Sulfate 6 meq/Calcium Gluconate 4.5 meq/ Heparin Sodium (Porcine) 1,000 units/ Amino Acids 1,020.9052 mls @ 42 mls/hr IV .Q24H ONE Stop: 03/02/17 17:59 Last Admin: 03/01/17 18:33 Dose: 42 mls/hr Insulin Glargine (Lantus) 15 unit SC HS [facility] Insulin Human Regular (Novolin R) 0 unit SC ACHS [facility] PRN Reason: Protocol Last Admin: 03/01/17 21:27 Dose: Not Given Latanoprost (Xalatan Opht) 0.02 ml OU HS [facility] Last Admin: 03/01/17 22:38 Dose: 0.02 ml Losartan Potassium (Cozaar) 100 mg PO DAILY [facility] Last Admin: 03/01/17 10:00 Dose: Not Given Nystatin (Nystatin Oral Susp) 5 ml PO QID [facility] Last Admin: 03/01/17 21:24 Dose: 5 ml Rosuvastatin Calcium (Crestor) 10 mg PO HS [facility] Last Admin: 03/01/17 21:24 Dose: 10 mg Timolol Maleate (Timoptic 0.5% [facility]) 1 drop OU BID [facility] Last Admin: 03/01/17 18:52 Dose: Not Given Vancomycin HCl (Vancocin (Oral Or Rectal Use)) 125 mg PO QID [facility] Last Admin: 03/01/17 21:27 Dose: Not Given Vitamin B Complex/Vit C/Folic Acid (Nephro-Alonzo) 1 tab PO 0800 [facility] Last Admin: 03/01/17 10:00 Dose: Not Given - Labs Labs: 03/01/17 11:37 03/01/17 11:37 PT 12.3 SECONDS (9.7-12.2) H 02/18/17 05:30 INR 1.1 02/18/17 05:30 APTT 30 SECONDS (21-34) 02/18/17 05:30 - Constitutional Appears: Non-toxic, No Acute Distress - Head Exam Head Exam: ATRAUMATIC, NORMAL INSPECTION, NORMOCEPHALIC - Eye Exam Eye Exam: EOMI, Normal appearance - ENT Exam ENT Exam: Mucous Membranes Moist - Respiratory Exam Respiratory Exam: absent: Accessory Muscle Use, Respiratory Distress - Cardiovascular Exam Cardiovascular Exam: REGULAR RHYTHM, +S1, +S2 - GI/Abdominal Exam GI & Abdominal Exam: Soft. absent: Tenderness - Extremities Exam Additional comments: Left foot ulcer, wound vac on - Neurological Exam Neurological Exam: Alert, Awake Additional comments: patient lethargic, responding to verbal stimuli - Skin Skin Exam: Normal Color, Warm Additional comments: wound vac on left foot wound Assessment and Plan - Assessment and Plan (Free Text) Assessment: 71 y/o F POD#3 s/p LLE debridement and wound vac placement w/ acute worsening AMS - f/u AM labs - monitor vitals - cont IV Abx per ID - cont medical management - wound vac changed today (03/02) with santyl placed on wound Further recs per Dr. Broussard
[2017-03-02] MEDS: Multivitamin Vitamin B Complex (Nephro-Vite) Tab PO SCH (08:30)
[2017-03-02] MEDS: (Novolin R) Insulin Human Regular 100 units/ml vial SC SCH ×4 (08:46→22:12)
--- NOTE | 2017-03-02 09:19 | CP.PCM.PN ---
<Piyush Segura - Last Filed: 03/02/17 19:17> Subjective - Date & Time of Evaluation Date of Evaluation: 03/02/17 Time of Evaluation: 07:10 - Subjective Subjective: PGY-[address] Myrick Patient seen and examined at bedside. Patient is lethargic but arousable to stimuli. ROS unable to ascertain due to current mental status. Objective - Vital Signs/Intake and Output Vital Signs (last 24 hours): Temp Pulse Resp BP Pulse Ox 97.9 F 83 20 144/69 95 03/02/17 08:39 03/02/17 08:39 03/02/17 08:39 03/02/17 08:39 03/02/17 08:39 - Medications Medications: Current Medications Acetaminophen (Tylenol 325mg Tab) 650 mg PO Q6 PRN PRN Reason: Pain, Mild (1-3) Last Admin: 02/28/17 14:48 Dose: 650 mg Amlodipine Besylate (Norvasc) 5 mg PO DAILY [facility] Last Admin: 03/01/17 10:00 Dose: Not Given Ascorbic Acid (Vitamin C 500 Mg Tab) 500 mg PO DAILY [facility] Last Admin: 03/01/17 10:00 Dose: Not Given Brimonidine Tartrate (Alphagan 0.2% Opht) 1 ml OU TID [facility] Last Admin: 03/01/17 18:00 Dose: 1 drop Dextrose (Dextrose 50% Inj) 0 ml IV STAT PRN; Protocol PRN Reason: Hyglycemia Protocol Dextrose (Glutose 15) 0 gm PO ONCE PRN; Protocol PRN Reason: Hypoglycemia Protocol Epoetin Maxwell (Procrit) 10,000 unit IV TTS [facility] Stop: 03/03/17 10:01 Last Admin: 02/28/17 10:40 Dose: 10,000 unit Ergocalciferol (Drisdol 50,000 Intl Units Cap) 1 cap PO QWK [facility] Last Admin: 02/26/17 10:51 Dose: Not Given Furosemide (Lasix) 40 mg PO DAILY [facility] Last Admin: 03/01/17 11:30 Dose: Not Given Glucagon (Glucagen Diagnostic Kit) 0 mg IM STAT PRN; Protocol PRN Reason: Hypoglycemia Protocol Heparin Sodium (Porcine) (Heparin) 3,700 units IVP TTS [facility] Last Admin: 02/28/17 10:41 Dose: 3,700 units Heparin Sodium (Porcine) (Heparin) 5,000 units SC Q8 [facility] Last Admin: 03/02/17 06:07 Dose: 5,000 units Hydralazine HCl (Apresoline) 25 mg PO BID [facility] Last Admin: 03/01/17 18:51 Dose: Not Given Tigecycline 50 mg/ Sodium (Chloride) 100 mls @ 100 mls/hr IVPB Q12H [facility] Last Admin: 03/02/17 08:47 Dose: 100 mls/hr Dextrose (Dextrose 5% In Water 1000 Ml) 1,000 mls @ 0 mls/hr IV .Q0M PRN; Protocol; Per Protocol PRN Reason: Hypoglycemia Protocol Metronidazole (Flagyl) 500 mg in 100 mls @ 100 mls/hr IVPB Q8 [facility] Last Admin: 03/02/17 06:03 Dose: 100 mls/hr Sodium Chloride 35 meq/Magnesium Sulfate 6 meq/Calcium Gluconate 4.5 meq/ Heparin Sodium (Porcine) 1,000 units/ Amino Acids 1,020.9052 mls @ 42 mls/hr IV .Q24H ONE Stop: 03/02/17 17:59 Last Admin: 03/01/17 18:33 Dose: 42 mls/hr Insulin Glargine (Lantus) 15 unit SC HS [facility] Insulin Human Regular (Novolin R) 0 unit SC ACHS [facility] PRN Reason: Protocol Last Admin: 03/02/17 08:46 Dose: 8 unit Latanoprost (Xalatan Opht) 0.02 ml OU [facility] Last Admin: 03/01/17 22:38 Dose: 0.02 ml Losartan Potassium (Cozaar) 100 mg PO DAILY [facility] Last Admin: 03/01/17 10:00 Dose: Not Given Nystatin (Nystatin Oral Susp) 5 ml PO QID [facility] Last Admin: 03/01/17 21:24 Dose: 5 ml Rosuvastatin Calcium (Crestor) 10 mg PO [facility] Last Admin: 03/01/17 21:24 Dose: 10 mg Timolol Maleate (Timoptic 0.5% Oph Soln) 1 drop OU BID [facility] Last Admin: 03/01/17 18:52 Dose: Not Given Vancomycin HCl (Vancocin (Oral Or Rectal Use)) 125 mg PO QID [facility] Last Admin: 03/01/17 21:27 Dose: Not Given Vitamin B Complex/Vit C/Folic Acid (Nephro-Alonzo) 1 tab PO 0800 [facility] Last Admin: 03/01/17 10:00 Dose: Not Given - Labs Labs: 03/01/17 11:37 03/01/17 11:37 PT 12.3 SECONDS (9.7-12.2) H 02/18/17 05:30 INR 1.1 02/18/17 05:30 APTT 30 SECONDS (21-34) 02/18/17 05:30 - Constitutional Appears: No Acute Distress - Head Exam Head Exam: ATRAUMATIC, NORMOCEPHALIC - Eye Exam Eye Exam: EOMI, PERRL - ENT Exam ENT Exam: Mucous Membranes Moist - Respiratory Exam Respiratory Exam: Clear to Ausculation Bilateral. absent: Rales, Rhonchi, Wheezes - Cardiovascular Exam Cardiovascular Exam: REGULAR RHYTHM, +S1, +S2 - Extremities Exam Additional comments: Chronic venous stasis changes bilaterally in the legs Left foot ulcer with 10x5 cm eschar spanning lateral plantar surface. Wound vac in place for left leg wound. - Neurological Exam Neurological Exam: Altered, Awake Additional comments: Moving all 4 extremities. Following basic commands. - Skin Skin Exam: Dry, Pallor Assessment and Plan - Assessment and Plan (Free Text) Plan: 1. Non-Healing Left Heel Ulcer 03/02: Wound vac was replaced this afternoon. Gram positive cocci grew in the blood cultures. 03/01: POD #2 s/p debridement of L foot ulcer. Patient's WBC increased to 21.7 with left shift. Lactate 2.8--> repeat 1.9; recheck blood cultures today. Plan to change wound vac on foot tomorrow. 02/26/17: Patient underwent aortofemoral angiogram via right groin with selective catheterization of left anterior femoral artery. Balloon angioplasty of popliteal artery. Pathway arthrectomy and balloon angioplasty of anterior tibial artery. 02/27/17: Debridement of left foot ulcer with wound vac placed and cultures taken. Podiatry consult - Dr. Avery, help appreciated Infectious Disease Dr. Wellington consulted, help appreciated. Dr. Broussard on board, help appreciated. Low ext arterial duplex (02/04/17): R- occlusion R post tib artery, 50-75% stenosis right mid popliteal & proximal anterior tib arteries L- occlusion of left post tib artery, >75% stenosis left proximal ant tibial artery, 50-75% stenosis left distal SFA & proximal popliteal a. [facility] 02/[facility]/17 Cefepime 1 gm IV Q24H 02/18/17 to 02/23/17 Zyvox 600 mg PO BID started 02/22/17-02/23/17 Current antibiotics: Tygacil 100 mg loading dose on 02/25/17 and then continued as Tygacil 50 mg IV Q12H, Vanco 125mg PO QID, Flagyl 500mg IV q8h Abdominal Angiography 02/19/17: Severe bilateral lower extremity arterial runoff with 1 vessel likely remaining patent at the right. None is continuously patent at the left lower extremity [id number]. Widely patent abdominal aorta and iliac arterial system with moderate right and [id number] left femoral arterial disease. Severe bilateral popliteal artery arterial disease. Dr. Avery recommended Left BKA given his physical exam findings. Dr. Broussard also recommends the left BKA. He stated that even if the gangrenous portion is removed, it will not heal regardless of revascularization. As of 02/25, the patient's family has decided for her to stay and have Dr. Broussard clean the wound and improve the circulation in the leg. Before this, they were adamant about getting the patient to [facility] for hyperbaric therapy to try to salvage the leg. They still do not wish for amputation at this time. 2. Left Pleural Effusion 03/02: 500 cc clear fluid drained from the left pleura 03/01: Chest X-ray ordered showed left sided pleural effusion new since admission (see full report) f/u CT chest without contrast Ordered thoracentesis with fluid studies Consulted Molecular Spectroscopist Dr Rama osman f/u recommendations 3. C. Diff C. Diff studies positive Patient on isolation contact precaution Vancomycin 125 mg PO QID started Dr. Wellington added Flagyl 500 mg IV Q8H f/u repeat C diff and stool culture on 02/28 4. Altered Mental Status 03/01: Patient obtunded this AM due to Gabapentin that was given night prior ( renally excreted). Gabapentin was discontinued. Repeat CT head without contrast was ordered this morning which was negative for acute infarct. Avoid pain medications that are renally excreted at this time. CT Head negative for Acute Territorial Infarction Patient found hypoglycemic by both and EMS with symptoms that suggest seizure episode. Patient is a poorly controlled diabetic. Monitor Accuchecks qACHS and Q4H Patient likely had an episode of neuroglycopenia and currently in post-ictal state. Due to post-ictal state, decision made to avoid narcotic pain medications. FRAME OPENER performed successful bedside swallow eval and recommended Pureed diet with thin liquids. Home PO meds restarted. Neurology consult Dr. Tanisha Aguirre, help appreciated. Thiamine 100 mg Q8H Could not get brain MRI which was neuro's recommendation due to 3 previous attempts where patient was moving too much. We do not wish to further sedate the patient due to her current mental state, so instead a repeat CT Head without contrast was done on 02/23/17. This CT head did not demonstrate any acute hemorrhagic or ischemic pathology. 5. End Stage Renal Disease on Hemodialysis On HD T,,S Dr. Ambrose nephrology consulted- help appreciated 6. Decreased oral intake 03/01: Patient unable to eat due to altered mental status. Status changed to NPO at this time. Starting TPN for nutrition to be given via PICC line. Albumin decreasing, 2.1 today -Diflucan was added empirically by GI team. 7. Hypertension 03/02: Patient resumed oral BP medications today and tolerated without issue. 03/01: Patient normotensive, held oral BP medications due to NPO status. Given Lasix 20mg IV x1 dose. Will monitor BP q4h and given medications as needed. PO Home medications held * Norvasc 5 mg PO daily * Losartan 100 mg PO daily * Furosemide 40 mg PO daily * Held Bumex for now Monitor BP q6h and adjust meds as needed 8. Anemia of Chronic Disease Hgb stable Likely secondary to ESRD Dr. Ambrose put for IV ferlicet 125 mg and Procrit 10,000 units IV Monitor CBC daily 9. Diabetes 03/01: Patient having multiple episodes of hypoglycemia causing mental status change. Stopping standing insulin. See MODELING AND SIMULATION ANALYST note for more information. Accuchecks qACHS [facility]ISS Home Lantus 30 units SC HS- reduced to 15 units HS Crestor 10mg PO HS 10. Prophylactic Measures SCDs Heparin 5000 units SC Q8H 1:1 observation due to agitation. Patient tries to get out of bed. Fall precautions Disposition: This patient has a very poor prognosis. The family wishes to try to save the leg despite multiple professional opinions on the necessity of an amputation. The family initially wished for the patient to go to [facility] where hyperbaric therapy is available in order to promote healing. They wished to be cared for by their personal air surveillance operator Dr. Ware; however, Dr. Ware has become unavailable. So the family decided to remain at [facility] and attempt healing via vascular surgery to improve circulation and wound debridement of damaged tissue. They were repeatedly warned by multiple medical record transcriber of the risks associated with refusing a BKA and attempting to salvage the foot. The family verbalized understanding of the risks but still decide against a BKA at this time. Case DW Dr. Ramez Segura PGY-1 <Benson Myrick Jr. - Last Filed: 03/08/17 12:07> Objective - Vital Signs/Intake and Output Vital Signs (last 24 hours): Temp Pulse Resp BP Pulse Ox 97.9 F 76 20 166/69 H 98 03/08/17 08:12 03/08/17 08:12 03/08/17 08:12 03/08/17 10:49 03/08/17 08:12 Intake and Output: 03/08/17 03/08/17 06:59 18:59 Intake Total 770 Balance 770 - Medications Medications: Current Medications Acetaminophen (Tylenol 325mg Tab) 650 mg PO Q6 PRN PRN Reason: Pain, Mild (1-3) Last Admin: 03/07/17 18:20 Dose: 650 mg Amlodipine Besylate (Norvasc) 5 mg PO DAILY [facility] Last Admin: 03/08/17 10:50 Dose: 5 mg Ascorbic Acid (Vitamin C 500 Mg Tab) 500 mg PO DAILY [facility] Last Admin: 03/08/17 10:49 Dose: 500 mg Brimonidine Tartrate (Alphagan 0.2% Opht) 1 ml OU TID [facility] Last Admin: 03/08/17 10:52 Dose: 1 drop Collagenase (Santyl) 0 gm TOP DAILY [facility] Last Admin: 03/08/17 10:50 Dose: Not Given Dextrose (Dextrose 50% Inj) 0 ml IV STAT PRN; Protocol PRN Reason: Hyglycemia Protocol Dextrose (Glutose 15) 0 gm PO ONCE PRN; Protocol PRN Reason: Hypoglycemia Protocol Epoetin Maxwell (Procrit) 10,000 unit IV TTS [facility] Last Admin: 03/07/17 11:29 Dose: 10,000 unit Ergocalciferol (Drisdol 50,000 Intl Units Cap) 1 cap PO QWK [facility] Last Admin: 03/05/17 14:54 Dose: 1 cap Furosemide (Lasix) 40 mg PO DAILY [facility] Last Admin: 03/08/17 10:49 Dose: 40 mg Glucagon (Glucagen Diagnostic Kit) 0 mg IM STAT PRN; Protocol PRN Reason: Hypoglycemia Protocol Heparin Sodium (Porcine) (Heparin) 5,000 units SC Q8 [facility] Last Admin: 03/08/17 04:59 Dose: 5,000 units Heparin Sodium (Porcine) (Heparin) 3,700 units IVP TTS [facility] Stop: 03/24/17 23:59 Last Admin: 03/07/17 11:20 Dose: 3,700 units Hydralazine HCl (Apresoline) 25 mg PO BID [facility] Last Admin: 03/08/17 10:49 Dose: 25 mg Hydromorphone HCl (Dilaudid) 0.5 mg IVP Q6H PRN PRN Reason: Pain, severe (8-10) Last Admin: 03/08/17 10:50 Dose: 0.5 mg Tigecycline 50 mg/ Sodium (Chloride) 100 mls @ 100 mls/hr IVPB Q12H [facility] Last Admin: 03/08/17 08:33 Dose: 100 mls/hr Fluconazole (Diflucan Iv 200 Mg/100 Ml Ns) 100 mls @ 100 mls/hr IVPB DAILY [facility] Last Admin: 03/08/17 11:03 Dose: 100 mls/hr Sodium Chloride 35 meq/Potassium Chloride 30 meq/Magnesium Sulfate 6 meq/ Calcium Gluconate 4.5 meq/Heparin Sodium (Porcine) 1,000 units/ Amino Acids 1, 035.9052 mls @ 63 mls/hr IV .[id number] [facility] Stop: 03/08/17 18:00 Last Admin: 03/08/17 11:03 Dose: 63 mls/hr Sodium Chloride 35 meq/Potassium Chloride 30 meq/Magnesium Sulfate 6 meq/ Calcium Gluconate 4.5 meq/Heparin Sodium (Porcine) 1,000 units/ Amino Acids 1, 035.9052 mls @ 63 mls/hr IV .[id number] ONE Stop: 03/09/17 10:26 Sodium Chloride 35 meq/Potassium Chloride 30 meq/Magnesium Sulfate 6 meq/ Calcium Gluconate 4.5 meq/Heparin Sodium (Porcine) 1,000 units/ Amino Acids 1, 035.9052 mls @ 63 mls/hr IV .[id number] [facility] Stop: 03/09/17 17:59 Insulin Glargine (Lantus) 25 unit SC HS [facility] Last Admin: 03/07/17 21:03 Dose: 25 unit Insulin Human Regular (Novolin R) 0 unit SC ACHS [facility] PRN Reason: Protocol Last Admin: 03/08/17 08:33 Dose: 12 unit Latanoprost (Xalatan Opht) 0.02 ml OU HS [facility] Last Admin: 03/07/17 21:13 Dose: Not Given Losartan Potassium (Cozaar) 100 mg PO DAILY [facility] Last Admin: 03/08/17 10:49 Dose: 100 mg Pantoprazole Sodium (Protonix Inj) 40 mg IVP Q12H [facility] Last Admin: 03/08/17 04:26 Dose: 40 mg Rosuvastatin Calcium (Crestor) 10 mg PO HS [facility] Last Admin: 03/07/17 21:07 Dose: 10 mg Timolol Maleate (Timoptic 0.5% [facility]) 1 drop OU BID [facility] Last Admin: 03/08/17 10:51 Dose: 1 drop Vitamin B Complex/Vit C/Folic Acid (Nephro-Alonzo) 1 tab PO 0800 [facility] Last Admin: 03/08/17 08:33 Dose: 1 tab - Labs Labs: 03/07/17 10:03 03/07/17 10:03 PT 12.3 SECONDS (9.7-12.2) H 02/18/17 05:30 INR 1.1 02/18/17 05:30 APTT 30 SECONDS (21-34) 02/18/17 05:30 Attending/Attestation - Attestation I have personally seen and examined this patient.: Yes I have fully participated in the care of the patient.: Yes I have reviewed all pertinent clinical information, including history, physical exam and plan: Yes Notes (Text): 03/08/17 12:07 Agree with resident note and plan of care
--- NOTE | 2017-03-02 11:11 | PCM.SURG1 ---
Surgeon's Initial Post Op Note - Surgeon's Notes Surgeon: Rogers Roman MD Meat Hanger: NONE Type of Anesthesia: Local Pre-Operative Diagnosis: Bilateral pleural effusion Operative Findings: US showed a moderate left and a small right effusion. Post-Operative Diagnosis: Bilateral pleural effusion Operation Performed: US guided left thoracentesis. Specimen/Specimens Removed: 500 cc of clear fluid Estimated Blood Loss: EBL {In ML}: 0 Blood Products Given: N/A Drains Used: No Drains Post-Op Condition: Fair Date of Surgery/Procedure: 03/02/17 Time of Surgery/Procedure: 11:00
--- NOTE | 2017-03-02 11:18 | US ---
PROCEDURE: Date of procedure: 03/02/2017 Procedure: 1. Ultrasound-guided left thoracentesis, CPT 79371 Medications: 8cc 1% Lidocaine HISTORY: Left pleural effusion, shortness of breath TECHNIQUE: Following informed consent ,the Patients' left chest was marked. Procedure time-out was called, and the patient was placed supine in bed and limited ultrasound showed a moderate left effusion. There is a small right effusion. The patient's left flank was prepped and draped in the usual sterile fashion. After the skin was anesthetized with 8cc 1%lidocaine, a drainage catheter was advanced under ultrasound guidance into the pleural space. Ultrasound-guided thoracentesis was performed. A total of 500 cubic centimeters of straw-colored fluid removed without complication. A Xeroform dressing was applied. IMPRESSION: Ultrasound guided left thoracentesis. There were no immediate complications.
--- NOTE | 2017-03-02 11:26 | CT ---
CT chest without IV contrast Indication: Pleural effusion Technique: Contiguous axial images were obtained through the chest without intravenous contrast enhancement. Sagittal and coronal reconstructions were generated and reviewed. This CT exam was performed using 1 or more of the falling dose reduction techniques: Automated exposure control, adjustment of the MAA and/or kV according to patient size, and/or use of iterative reconstruction technique. Radiation dose (DLP): 474.37 MGy-cm. Comparison: Chest x-ray performed 03/01/17 Findings: Right IJ approach central venous catheter extends to the cavoatrial junction. Visualized portions of the inferior thyroid gland appear heterogeneous. The mediastinal and hilar vascular structures appear within normal limits. The heart appears within normal limits of size. Moderate pericardial effusion. Atherosclerotic calcifications of the aorta. Dense coronary artery calcifications. Moderate-sized gyrw-nvwqhsc-djul-right pleural effusions and associated consolidations. Lingular atelectasis/infiltrate. Limited visualization of the noncontrast upper abdomen demonstrates questionable inflammatory changes near the pancreatic head/ uncinate process and duodenum; correlate clinically. 11 mm coarse calcification within the right breast soft tissues. Mild degenerative changes. Impression: Moderate pericardial effusion. Atherosclerotic calcifications of the aorta. Dense coronary artery calcifications. Moderate-sized fkic-iqahraw-dwou-right pleural effusions and associated consolidations. Lingular atelectasis/infiltrate. Limited visualization of the noncontrast upper abdomen demonstrates questionable inflammatory changes near the pancreatic head/ uncinate process and duodenum; correlate clinically. 11 mm coarse calcification within the right breast soft tissues. Right IJ approach central venous catheter extends to the cavoatrial junction. Heterogeneous appearance of the inferior thyroid gland. Outpatient ultrasound may be considered for further evaluation if indicated.
[2017-03-02] MEDS: Brimonidine 0.2% Opth Sol (5ml) OU SCH ×3 (11:30→18:34)
[2017-03-02] MEDS: Nystatin 100,000 Units/ml Oral Susp 5 ml UD PO SCH ×2 (11:30→13:38)
[2017-03-02] MEDS: Vancomycin 125 MG/5 ML SOLN (ORAL/RECTAL) PO SCH ×4 (11:30→22:46)
[2017-03-02 12:01] LABS: BODY FLUID TYPE PLEURAL/THORACENTESI
[2017-03-02 12:53] LABS: BF GROSS APPEARANCE CLEAR (CLEAR)
[2017-03-02 12:54] LABS: BODY FLUID TOTAL COUNT 100 (0-0)
[2017-03-02] MEDS: Collagenase 250 Units/gm Ointment(30 gm) TOP SCH (14:00)
[2017-03-02] MEDS ORDERED: Lactated Ringer's 1,000 ML IV ONE (15:35)
[2017-03-02] MEDS ORDERED: Etomidate 20 mg/10ml Inj IV ONE (15:39)
[2017-03-02] MEDS ORDERED: Propofol 10 mg/ml Inj (20 ML) ONE (15:48)
[2017-03-02] MEDS ORDERED: TPN#2 IV ONE (18:00)
--- NOTE | 2017-03-02 18:35 | CP.PCM.CON ---
History of Present Illness - History of Present Illness History of Present Illness: reason for consultation: pleural effusion 71-year-old female with end-stage renal disease on hemodialysis, CHF, hypertension, diabetes,, depression, peripheral vascular disease who was admitted with altered mental status and shortness of breath. patient being treated for left foot necrotic ulcer, status post debridement and wound vac placement. Patient status post thoracentesis today with 500 cc off fluid removed. Patient response to vocal commands by opening eyes. Status post EGD today . PMHx: Per , ESRD (dialysis TTS), CHF, HTN, DM2, PVD, depression, anemia of chronic disease, chronic low back pain, glaucoma PSHx: Per , Appendectomy, AV fistula, lower extremity artherectomy Allergies: NKDA Family history: not contributory Social History: Lives with in [place]. Per , denies any smoking, denies ETOH or drug abuse Review of Systems - Review of Systems All systems: reviewed and no additional remarkable complaints except (change in mental status and shortness of breath) Past Patient History - Infectious Disease Hx of Infectious Diseases: None - Tetanus Immunizations Tetanus Immunization: Unknown - Past Medical History & Family History Past Medical History?: Yes - Past Social History Smoking Status: Never Smoked - CARDIAC Hx Hypercholesterolemia: Yes Hx Hypertension: Yes - PULMONARY Hx Respiratory Disorders: No - NEUROLOGICAL Hx Neurological Disorder: No - HEENT Hx HEENT Problems: Yes Hx Cataracts: Yes - RENAL Hx Chronic Kidney Disease: Yes - ENDOCRINE/METABOLIC Hx Diabetes Mellitus Type 2: Yes - HEMATOLOGICAL/ONCOLOGICAL Hx Anemia: Yes Hx Human Immunodeficiency Virus (HIV): No - INTEGUMENTARY Hx Dermatological Problems: No - MUSCULOSKELETAL/RHEUMATOLOGICAL Hx Musculoskeletal Disorders: Yes Hx Degenerative Joint Disease: Yes - GENITOURINARY/GYNECOLOGICAL Hx Genitourinary Disorders: Yes Hx Urinary Tract Infection: Yes - PSYCHIATRIC Hx Anxiety: Yes Hx Depression: Yes Hx Substance Use: No - SURGICAL HISTORY Hx Appendectomy: Yes - ANESTHESIA Hx Anesthesia: Yes Hx Anesthesia Reactions: No Hx Malignant Hyperthermia: No Meds Home Medications: Home Medication List Medication Instructions Recorded Confirmed Type Brimonidine 0.2% [Alphagan 0.2% 1 ml OU TID bottle 02/23/17 Rx Opht] Cefepime [Maxipime] 1 gm IVPB Q24H vial 02/23/17 Rx Epoetin Maxwell [Procrit] 10,000 unit IV TTS ml 02/23/17 Rx Ferric Sodium Gluconat Complex 125 mg IVPB TTS vial 02/23/17 Rx [Ferrlecit] Furosemide [Lasix] 40 mg PO DAILY tab 02/23/17 Rx Heparin 5,000 units SC Q8 vial 02/23/17 Rx Insulin Glargine, Recombina 30 unit SC HS unit 02/23/17 Rx [Lantus] Insulin Human Regular [Novolin R] 0 unit SC ACHS unit 02/23/17 Rx Latanoprost 0.005% Opht [Xalatan 0.02 ml OU HS bottle 02/23/17 Rx Opht] Linezolid [Zyvox] 600 mg PO BID tab 02/23/17 Rx Losartan [Cozaar] 100 mg PO DAILY tab 02/23/17 Rx Metronidazole [Flagyl] 500 mg PO Q8H 10 Days #30 tablet 02/23/17 Rx Rosuvastatin Calcium [Crestor] 10 mg PO HS tab 02/23/17 Rx Thiamine [Vitamin B1 Inj] 100 mg IV Q8H vial 02/23/17 Rx Timolol 0.5% Ophth [Timoptic 0.5% 1 drop OU BID bottle 02/23/17 Rx Ophth Soln] Vancomycin [Vancocin (ORAL OR 125 mg PO QID soln 02/23/17 Rx RECTAL USE)] amLODIPine [Norvasc] 5 mg PO DAILY tab 02/23/17 Rx hydrALAZINE [Apresoline] 25 mg PO BID tab 02/23/17 Rx Allergies/Adverse Reactions: Allergies Allergy/AdvReac Type Severity Reaction Status Date / Time No Known Allergies Allergy Verified 12/20/16 14:34 - Medications Medications: Current Medications Acetaminophen (Tylenol 325mg Tab) 650 mg PO Q6 PRN PRN Reason: Pain, Mild (1-3) Last Admin: 02/28/17 14:48 Dose: 650 mg Amlodipine Besylate (Norvasc) 5 mg PO DAILY [facility] Last Admin: 03/02/17 11:30 Dose: 5 mg Ascorbic Acid (Vitamin C 500 Mg Tab) 500 mg PO DAILY [facility] Last Admin: 03/02/17 11:30 Dose: 500 mg Brimonidine Tartrate (Alphagan 0.2% Opht) 1 ml OU TID [facility] Last Admin: 03/02/17 13:40 Dose: 1 drop Collagenase (Santyl) 0 gm TOP DAILY ELINA Collagenase (Santyl) 0 gm TOP DAILY [facility] Dextrose (Dextrose 50% Inj) 0 ml IV STAT PRN; Protocol PRN Reason: Hyglycemia Protocol Dextrose (Glutose 15) 0 gm PO ONCE PRN; Protocol PRN Reason: Hypoglycemia Protocol Epoetin Maxwell (Procrit) 10,000 unit IV TTS [facility] Stop: 03/03/17 10:01 Last Admin: 02/28/17 10:40 Dose: 10,000 unit Ergocalciferol (Drisdol 50,000 Intl Units Cap) 1 cap PO QWK [facility] Last Admin: 02/26/17 10:51 Dose: Not Given Furosemide (Lasix) 40 mg PO DAILY [facility] Last Admin: 03/02/17 11:30 Dose: 40 mg Glucagon (Glucagen Diagnostic Kit) 0 mg IM STAT PRN; Protocol PRN Reason: Hypoglycemia Protocol Heparin Sodium (Porcine) (Heparin) 3,700 units IVP TTS [facility] Last Admin: 02/28/17 10:41 Dose: 3,700 units Heparin Sodium (Porcine) (Heparin) 5,000 units SC Q8 [facility] Last Admin: 03/02/17 13:38 Dose: 5,000 units Hydralazine HCl (Apresoline) 25 mg PO BID [facility] Last Admin: 03/02/17 11:30 Dose: 25 mg Tigecycline 50 mg/ Sodium (Chloride) 100 mls @ 100 mls/hr IVPB Q12H [facility] Last Admin: 03/02/17 08:47 Dose: 100 mls/hr Dextrose (Dextrose 5% In Water 1000 Ml) 1,000 mls @ 0 mls/hr IV .Q0M PRN; Protocol; Per Protocol PRN Reason: Hypoglycemia Protocol Metronidazole (Flagyl) 500 mg in 100 mls @ 100 mls/hr IVPB Q8 [facility] Last Admin: 03/02/17 13:39 Dose: 100 mls/hr Sodium Chloride 35 meq/Magnesium Sulfate 6 meq/Calcium Gluconate 4.5 meq/ Heparin Sodium (Porcine) 1,000 units/ Multivitamins/Vitamin C 10 ml/ Amino Acids 1,030.9052 mls @ 42 mls/hr IV .Q24H ONE Stop: 03/03/17 17:59 Insulin Glargine (Lantus) 15 unit SC HS [facility] Insulin Human Regular (Novolin R) 0 unit SC [facility] PRN Reason: Protocol Last Admin: 03/02/17 13:51 Dose: 8 unit Latanoprost (Xalatan Opht) 0.02 ml OU HS [facility] Last Admin: 03/01/17 22:38 Dose: 0.02 ml Losartan Potassium (Cozaar) 100 mg PO DAILY [facility] Last Admin: 03/02/17 11:30 Dose: 100 mg Pantoprazole Sodium (Protonix Inj) 40 mg IVP Q12H [facility] Last Admin: 03/02/17 17:10 Dose: 40 mg Rosuvastatin Calcium (Crestor) 10 mg PO HS [facility] Last Admin: 03/01/17 21:24 Dose: 10 mg Timolol Maleate (Timoptic 0.5% Oph Soln) 1 drop OU BID [facility] Last Admin: 03/02/17 11:30 Dose: 1 drop Vancomycin HCl (Vancocin (Oral Or Rectal Use)) 125 mg PO QID [facility] Last Admin: 03/02/17 13:40 Dose: 125 mg Vitamin B Complex/Vit C/Folic Acid (Nephro-Alonzo) 1 tab PO 0800 [facility] Last Admin: 03/02/17 08:30 Dose: 1 tab Physical Exam - Head Exam Head Exam: ATRAUMATIC, NORMOCEPHALIC - ENT Exam ENT Exam: Mucous Membranes Moist - Neck Exam Neck exam: Positive for: Normal Inspection - Respiratory Exam Respiratory Exam: Decreased Breath Sounds - Cardiovascular Exam Cardiovascular Exam: REGULAR RHYTHM - GI/Abdominal Exam GI & Abdominal Exam: Normal Bowel Sounds - Extremities Exam Extremities exam: Positive for: pedal edema - Neurological Exam Neurological exam: Altered Results - Vital Signs Recent Vital Signs: Last Vital Signs Temp 98 F 03/02/17 17:58 Pulse 75 03/02/17 17:58 Resp 20 03/02/17 17:58 BP 150/72 03/02/17 17:58 Pulse Ox 97 03/02/17 17:58 - Labs Result Diagrams: 03/03/17 08:50 03/03/17 08:50 Labs: Laboratory Results - last 24 hr 03/01/17 03/01/17 03/01/17 05:39 05:48 06:38 POC Glucose (mg/dL) 306 H 176 H 102 Fluid Source Fluid Appearance Fluid WBC Fluid RBC Fluid Tot Cell Count Fluid Neutrophils Fluid Lymphocytes Fld Monocyte/Macrophag Fluid Comment 03/01/17 03/01/17 03/01/17 06:57 07:08 11:28 POC Glucose (mg/dL) 265 H 268 H 205 H Fluid Source Fluid Appearance Fluid WBC Fluid RBC Fluid Tot Cell Count Fluid Neutrophils Fluid Lymphocytes Fld Monocyte/Macrophag Fluid Comment 03/01/17 03/01/17 03/02/17 16:14 21:09 00:55 POC Glucose (mg/dL) 114 H 96 88 Fluid Source Fluid Appearance Fluid WBC Fluid RBC Fluid Tot Cell Count Fluid Neutrophils Fluid Lymphocytes Fld Monocyte/Macrophag Fluid Comment 03/02/17 03/02/17 03/02/17 04:41 06:30 11:41 POC Glucose (mg/dL) 233 H 300 H 317 H Fluid Source Fluid Appearance Fluid WBC Fluid RBC Fluid Tot Cell Count Fluid Neutrophils Fluid Lymphocytes Fld Monocyte/Macrophag Fluid Comment 03/02/17 03/02/17 12:00 17:54 POC Glucose (mg/dL) 340 H Fluid Source Pleural/thoracentesi Fluid Appearance Clear Fluid WBC 105.0 Fluid RBC 271.0 H Fluid Tot Cell Count 100 H Fluid Neutrophils 11.0 H Fluid Lymphocytes 83.0 H Fld Monocyte/Macrophag 6 H Fluid Comment Assessment & Plan (1) Pleural effusion Status: Chronic Priority: High Comment: bilateral pleural effusion secondary to end-stage renal disease and CHF. Status post thoracentesis. Continue hemodialysis. Fluid analysis (2) Change in mental status Status: Acute (3) Clostridium difficile colitis Status: Acute (4) End stage renal disease on dialysis Status: Acute
--- NOTE | 2017-03-02 19:36 | CP.PCM.PN ---
Subjective - Date & Time of Evaluation Date of Evaluation: 03/02/17 Time of Evaluation: 16:00 - Subjective Subjective: SEEN ON RENAL F/U ON HD T T S S/P PLEURALFLIUD TAPPING FEELS THE SAME Objective - Vital Signs/Intake and Output Vital Signs (last 24 hours): Temp Pulse Resp BP Pulse Ox 98 F 75 20 150/72 97 03/02/17 17:58 03/02/17 17:58 03/02/17 17:58 03/02/17 17:58 03/02/17 17:58 Intake and Output: 03/02/17 03/03/17 18:59 06:59 Intake Total 630 Balance 630 - Medications Medications: Current Medications Acetaminophen (Tylenol 325mg Tab) 650 mg PO Q6 PRN PRN Reason: Pain, Mild (1-3) Last Admin: 02/28/17 14:48 Dose: 650 mg Amlodipine Besylate (Norvasc) 5 mg PO DAILY [facility] Last Admin: 03/02/17 11:30 Dose: 5 mg Ascorbic Acid (Vitamin C 500 Mg Tab) 500 mg PO DAILY [facility] Last Admin: 03/02/17 11:30 Dose: 500 mg Brimonidine Tartrate (Alphagan 0.2% Opht) 1 ml OU TID [facility] Last Admin: 03/02/17 18:34 Dose: 1 drop Collagenase (Santyl) 0 gm TOP DAILY ELINA Collagenase (Santyl) 0 gm TOP DAILY [facility] Last Admin: 03/02/17 14:00 Dose: 1 applic Dextrose (Dextrose 50% Inj) 0 ml IV STAT PRN; Protocol PRN Reason: Hyglycemia Protocol Dextrose (Glutose 15) 0 gm PO ONCE PRN; Protocol PRN Reason: Hypoglycemia Protocol Epoetin Maxwell (Procrit) 10,000 unit IV TTS [facility] Stop: 03/03/17 10:01 Last Admin: 02/28/17 10:40 Dose: 10,000 unit Ergocalciferol (Drisdol 50,000 Intl Units Cap) 1 cap PO QWK [facility] Last Admin: 02/26/17 10:51 Dose: Not Given Furosemide (Lasix) 40 mg PO DAILY [facility] Last Admin: 03/02/17 11:30 Dose: 40 mg Glucagon (Glucagen Diagnostic Kit) 0 mg IM STAT PRN; Protocol PRN Reason: Hypoglycemia Protocol Heparin Sodium (Porcine) (Heparin) 3,700 units IVP TTS [facility] Last Admin: 02/28/17 10:41 Dose: 3,700 units Heparin Sodium (Porcine) (Heparin) 5,000 units SC Q8 [facility] Last Admin: 03/02/17 13:38 Dose: 5,000 units Hydralazine HCl (Apresoline) 25 mg PO BID [facility] Last Admin: 03/02/17 18:35 Dose: 25 mg Tigecycline 50 mg/ Sodium (Chloride) 100 mls @ 100 mls/hr IVPB Q12H [facility] Last Admin: 03/02/17 08:47 Dose: 100 mls/hr Dextrose (Dextrose 5% In Water 1000 Ml) 1,000 mls @ 0 mls/hr IV .Q0M PRN; Protocol; Per Protocol PRN Reason: Hypoglycemia Protocol Metronidazole (Flagyl) 500 mg in 100 mls @ 100 mls/hr IVPB Q8 [facility] Last Admin: 03/02/17 13:39 Dose: 100 mls/hr Sodium Chloride 35 meq/Magnesium Sulfate 6 meq/Calcium Gluconate 4.5 meq/ Heparin Sodium (Porcine) 1,000 units/ Multivitamins/Vitamin C 10 ml/ Amino Acids 1,030.9052 mls @ 42 mls/hr IV .Q24H ONE Stop: 03/03/17 17:59 Last Admin: 03/02/17 18:36 Dose: 42 mls/hr Insulin Glargine (Lantus) 15 unit SC HS [facility] Insulin Human Regular (Novolin R) 0 unit SC ACHS [facility] PRN Reason: Protocol Last Admin: 03/02/17 18:34 Dose: 8 unit Latanoprost (Xalatan Opht) 0.02 ml OU HS [facility] Last Admin: 03/01/17 22:38 Dose: 0.02 ml Losartan Potassium (Cozaar) 100 mg PO DAILY [facility] Last Admin: 03/02/17 11:30 Dose: 100 mg Pantoprazole Sodium (Protonix Inj) 40 mg IVP Q12H [facility] Last Admin: 03/02/17 17:10 Dose: 40 mg Rosuvastatin Calcium (Crestor) 10 mg PO HS [facility] Last Admin: 03/01/17 21:24 Dose: 10 mg Timolol Maleate (Timoptic 0.5% Ophth Soln) 1 drop OU BID [facility] Last Admin: 03/02/17 18:34 Dose: 1 drop Vancomycin HCl (Vancocin (Oral Or Rectal Use)) 125 mg PO QID [facility] Last Admin: 03/02/17 18:35 Dose: 125 mg Vitamin B Complex/Vit C/Folic Acid (Nephro-Alonzo) 1 tab PO 0800 [facility] Last Admin: 03/02/17 08:30 Dose: 1 tab - Labs Labs: 03/01/17 11:37 03/01/17 11:37 PT 12.3 SECONDS (9.7-12.2) H 02/18/17 05:30 INR 1.1 02/18/17 05:30 APTT 30 SECONDS (21-34) 02/18/17 05:30 Assessment and Plan - Assessment and Plan (Free Text) Assessment: ESRD ON HD T T S ANEMIA OF CKD .. H/H STABLE S/P PLEURODETHESIS C/O CURRENT CARE
[2017-03-02] MEDS: Latanoprost 2.5 ml Opht Soln OU SCH (22:09)
[2017-03-02] MEDS: (Lantus) Insulin Glargine, Recombinant SC SCH (22:13)
[2017-03-03] MEDS: metroNIDAZOLE IV 500 mg/100 ml 500 MG/100 ML BAG IVPB SCH ×3 (05:49→22:35)
--- NOTE | 2017-03-03 06:16 | CP.PCM.PN ---
<Piyush Segura - Last Filed: 03/03/17 21:08> Subjective - Date & Time of Evaluation Date of Evaluation: 03/03/17 Time of Evaluation: 09:00 - Subjective Subjective: PGY-[address] Myrick Patient seen and examined at bedside. Patient more responsive than before but is still nonverbal. ROS unable to ascertain. Patient recognizing care providers and is able to follow basic commands. Objective - Vital Signs/Intake and Output Vital Signs (last 24 hours): Temp Pulse Resp BP Pulse Ox 98.8 F 78 20 92/60 L 96 03/02/17 23:38 03/02/17 23:38 03/02/17 23:38 03/02/17 23:38 03/02/17 23:38 Intake and Output: 03/02/17 03/03/17 18:59 06:59 Intake Total 630 Balance 630 - Medications Medications: Current Medications Acetaminophen (Tylenol 325mg Tab) 650 mg PO Q6 PRN PRN Reason: Pain, Mild (1-3) Last Admin: 02/28/17 14:48 Dose: 650 mg Amlodipine Besylate (Norvasc) 5 mg PO DAILY [facility] Last Admin: 03/02/17 11:30 Dose: 5 mg Ascorbic Acid (Vitamin C 500 Mg Tab) 500 mg PO DAILY [facility] Last Admin: 03/02/17 11:30 Dose: 500 mg Brimonidine Tartrate (Alphagan 0.2% Opht) 1 ml OU TID [facility] Last Admin: 03/02/17 18:34 Dose: 1 drop Collagenase (Santyl) 0 gm TOP DAILY [facility] Collagenase (Santyl) 0 gm TOP DAILY [facility] Last Admin: 03/02/17 14:00 Dose: 1 applic Dextrose (Dextrose 50% Inj) 0 ml IV STAT PRN; Protocol PRN Reason: Hyglycemia Protocol Dextrose (Glutose 15) 0 gm PO ONCE PRN; Protocol PRN Reason: Hypoglycemia Protocol Epoetin Maxwell (Procrit) 10,000 unit IV TTS [facility] Stop: 03/03/17 10:01 Last Admin: 02/28/17 10:40 Dose: 10,000 unit Ergocalciferol (Drisdol 50,000 Intl Units Cap) 1 cap PO QWK [facility] Last Admin: 02/26/17 10:51 Dose: Not Given Furosemide (Lasix) 40 mg PO DAILY [facility] Last Admin: 10/09/17 11:30 Dose: 40 mg Glucagon (Glucagen Diagnostic Kit) 0 mg IM STAT PRN; Protocol PRN Reason: Hypoglycemia Protocol Heparin Sodium (Porcine) (Heparin) 3,700 units IVP TTS [facility] Last Admin: 02/28/17 10:41 Dose: 3,700 units Heparin Sodium (Porcine) (Heparin) 5,000 units SC Q8 [facility] Last Admin: 03/03/17 05:48 Dose: 5,000 units Hydralazine HCl (Apresoline) 25 mg PO BID [facility] Last Admin: 03/02/17 18:35 Dose: 25 mg Tigecycline 50 mg/ Sodium (Chloride) 100 mls @ 100 mls/hr IVPB Q12H [facility] Last Admin: 03/02/17 20:11 Dose: 100 mls/hr Dextrose (Dextrose 5% In Water 1000 Ml) 1,000 mls @ 0 mls/hr IV .Q0M PRN; Protocol; Per Protocol PRN Reason: Hypoglycemia Protocol Metronidazole (Flagyl) 500 mg in 100 mls @ 100 mls/hr IVPB Q8 [facility] Last Admin: 03/03/17 05:49 Dose: 100 mls/hr Sodium Chloride 35 meq/Magnesium Sulfate 6 meq/Calcium Gluconate 4.5 meq/ Heparin Sodium (Porcine) 1,000 units/ Multivitamins/Vitamin C 10 ml/ Amino Acids 1,030.9052 mls @ 42 mls/hr IV .Q24H ONE Stop: 03/03/17 17:59 Last Admin: 03/02/17 18:36 Dose: 42 mls/hr Insulin Glargine (Lantus) 15 unit SC HS [facility] Last Admin: 03/02/17 22:13 Dose: 15 u Insulin Human Regular (Novolin R) 0 unit SC ACHS [facility] PRN Reason: Protocol Last Admin: 03/02/17 22:12 Dose: 3 unit Latanoprost (Xalatan Opht) 0.02 ml OU HS [facility] Last Admin: 03/02/17 22:09 Dose: 0.02 ml Losartan Potassium (Cozaar) 100 mg PO DAILY [facility] Last Admin: 03/02/17 11:30 Dose: 100 mg Pantoprazole Sodium (Protonix Inj) 40 mg IVP Q12H [facility] Last Admin: 03/03/17 05:48 Dose: 40 mg Rosuvastatin Calcium (Crestor) 10 mg PO HS [facility] Last Admin: 03/02/17 22:08 Dose: 10 mg Timolol Maleate (Timoptic 0.5% Ophth Soln) 1 drop OU BID [facility] Last Admin: 03/02/17 18:34 Dose: 1 drop Vancomycin HCl (Vancocin (Oral Or Rectal Use)) 125 mg PO QID [facility] Last Admin: 03/02/17 22:46 Dose: 125 mg Vitamin B Complex/Vit C/Folic Acid (Nephro-Alonzo) 1 tab PO 0800 [facility] Last Admin: 03/02/17 08:30 Dose: 1 tab - Labs Labs: 03/01/17 11:37 03/01/17 11:37 PT 12.3 SECONDS (9.7-12.2) H 02/18/17 05:30 INR 1.1 02/18/17 05:30 APTT 30 SECONDS (21-34) 02/18/17 05:30 - Constitutional Appears: No Acute Distress - Head Exam Head Exam: ATRAUMATIC, NORMOCEPHALIC - Eye Exam Eye Exam: EOMI, PERRL - ENT Exam ENT Exam: Mucous Membranes Moist - Respiratory Exam Respiratory Exam: Clear to Ausculation Bilateral. absent: Rales, Rhonchi, Wheezes - Cardiovascular Exam Cardiovascular Exam: REGULAR RHYTHM, +S1, +S2 - GI/Abdominal Exam GI & Abdominal Exam: Soft, Normal Bowel Sounds. absent: Tenderness - Extremities Exam Extremities Exam: absent: Pedal Edema Additional comments: Chronic venous stasis changes bilaterally in the legs Left foot ulcer with 10x5 cm eschar spanning lateral plantar surface. Wound vac in place for left leg wound. - Neurological Exam Neurological Exam: Awake - Skin Skin Exam: Dry, Pallor Assessment and Plan - Assessment and Plan (Free Text) Plan: 1. Non-Healing Left Heel Ulcer 03/02: Wound vac was replaced this afternoon. Gram positive cocci grew in the blood cultures. 03/01: POD #2 s/p debridement of L foot ulcer. Patient's WBC increased to 21.7 with left shift. Lactate 2.8--> repeat 1.9; recheck blood cultures today. Plan to change wound vac on foot tomorrow. 02/26/17: Patient underwent aortofemoral angiogram via right groin with selective catheterization of left anterior femoral artery. Balloon angioplasty of popliteal artery. Pathway arthrectomy and balloon angioplasty of anterior tibial artery. 02/27/17: Debridement of left foot ulcer with wound vac placed and cultures taken. Podiatry consult - Dr. Avery, help appreciated Infectious Disease Dr. Wellington consulted, help appreciated. Dr. Broussard on board, help appreciated. Low ext arterial duplex (02/04/17): R- occlusion R post tib artery, 50-75% stenosis right mid popliteal & proximal anterior tib arteries L- occlusion of left post tib artery, >75% stenosis left proximal ant tibial artery, 50-75% stenosis left distal SFA & proximal popliteal a. Vancomycin 1000 mg IV [facility] D/C'ed on 02/22/17 Cefepime 1 gm IV Q24H 02/18/17 to 02/23/17 Zyvox 600 mg PO BID started 02/22/17-02/23/17 Current antibiotics: Tygacil 100 mg loading dose on 02/25/17 and then continued as Tygacil 50 mg IV Q12H, Vanco 125mg PO QID, Flagyl 500mg IV q8h Abdominal Angiography 02/19/17: Severe bilateral lower extremity arterial runoff with 1 vessel likely remaining patent at the right. None is continuously patent at the left lower extremity [id number]. Widely patent abdominal aorta and iliac arterial system with moderate right and [id number] left femoral arterial disease. Severe bilateral popliteal artery arterial disease. Dr. Avery recommended Left BKA given his physical exam findings. Dr. Broussard also recommends the left BKA. He stated that even if the gangrenous portion is removed, it will not heal regardless of revascularization. As of 02/25, the patient's family has decided for her to stay and have Dr. Broussard clean the wound and improve the circulation in the leg. Before this, they were adamant about getting the patient to [facility] for hyperbaric therapy to try to salvage the leg. They still do not wish for amputation at this time. 2. Left Pleural Effusion 03/02: 500 cc clear fluid drained from the left pleura 03/01: Chest X-ray ordered showed left sided pleural effusion new since admission (see full report) f/u CT chest without contrast Ordered thoracentesis with fluid studies Consulted Supervisor Rose Grading Dr Alvaro- will f/u recommendations 3. C. Diff C. Diff studies positive Patient on isolation contact precaution Vancomycin 125 mg PO QID started Dr. Wellington added Flagyl 500 mg IV Q8H f/u repeat C diff and stool culture on 02/28 4. Altered Mental Status 03/01: Patient obtunded this AM due to Gabapentin that was given night prior ( renally excreted). Gabapentin was discontinued. Repeat CT head without contrast was ordered this morning which was negative for acute infarct. Avoid pain medications that are renally excreted at this time. CT Head negative for Acute Territorial Infarction Patient found hypoglycemic by both and EMS with symptoms that suggest seizure episode. Patient is a poorly controlled diabetic. Monitor Accuchecks qACHS and Q4H Patient likely had an episode of neuroglycopenia and currently in post-ictal state. Due to post-ictal state, decision made to avoid narcotic pain medications. 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 Home PO meds restarted. Neurology consult Dr. Tanisha Aguirre, help appreciated. Thiamine 100 mg Q8H Could not get brain MRI which was neuro's recommendation due to 3 previous attempts where patient was moving too much. We do not wish to further sedate the patient due to her current mental state, so instead a repeat CT Head without contrast was done on 02/23/17. This CT head did not demonstrate any acute hemorrhagic or ischemic pathology. 5. End Stage Renal Disease on Hemodialysis On HD T,,S Dr. Ambrose nephrology consulted- help appreciated 6. Decreased oral intake 03/01: Patient unable to eat due to altered mental status. Status changed to NPO at this time. Starting TPN for nutrition to be given via PICC line. Albumin decreasing, 2.1 today -Diflucan was added empirically by GI team. 7. Hypertension 03/02: Patient resumed oral BP medications today and tolerated without issue. 03/01: Patient normotensive, held oral BP medications due to NPO status. Given Lasix 20mg IV x1 dose. Will monitor BP q4h and given medications as needed. PO Home medications held * Norvasc 5 mg PO daily * Losartan 100 mg PO daily * Furosemide 40 mg PO daily * Held Bumex for now Monitor BP q6h and adjust meds as needed 8. Anemia of Chronic Disease Hgb stable Likely secondary to ESRD Dr. Ambrose put for IV ferlicet 125 mg and Procrit 10,000 units IV Monitor CBC daily 9. Diabetes 03/01: Patient having multiple episodes of hypoglycemia causing mental status change. Stopping standing insulin. See PHARMACEUTICAL PHYSICIAN note for more information. Accucheckginna JimenezS RISS Home Lantus 30 units SC HS- reduced to 15 units HS Crestor 10mg PO HS 10. Prophylactic Measures SCDs Heparin 5000 units SC Q8H 1:1 observation due to agitation. Patient tries to get out of bed. Fall precautions Disposition: This patient has a very poor prognosis. The family wishes to try to save the leg despite multiple professional opinions on the necessity of an amputation. The family initially wished for the patient to go to [facility] where hyperbaric therapy is available in order to promote healing. They wished to be cared for by their personal gardening manager Dr. Ware; however, Dr. Ware has become unavailable. So the family decided to remain at [facility] and attempt healing via vascular surgery to improve circulation and wound debridement of damaged tissue. They were repeatedly warned by multiple medical lab assistant of the risks associated with refusing a BKA and attempting to salvage the foot. The family verbalized understanding of the risks but still decide against a BKA at this time. Case DW Dr. Ramez Segura PGY-1 <Benson Myrick Jr. - Last Filed: 03/08/17 12:10> Objective - Vital Signs/Intake and Output Vital Signs (last 24 hours): Temp Pulse Resp BP Pulse Ox 97.9 F 76 20 166/69 H 98 03/08/17 08:12 03/08/17 08:12 03/08/17 08:12 03/08/17 10:49 03/08/17 08:12 Intake and Output: 03/08/17 03/08/17 06:59 18:59 Intake Total 770 Balance 770 - Medications Medications: Current Medications Acetaminophen (Tylenol 325mg Tab) 650 mg PO Q6 PRN PRN Reason: Pain, Mild (1-3) Last Admin: 03/07/17 18:20 Dose: 650 mg Amlodipine Besylate (Norvasc) 5 mg PO DAILY [facility] Last Admin: 03/08/17 10:50 Dose: 5 mg Ascorbic Acid (Vitamin C 500 Mg Tab) 500 mg PO DAILY [facility] Last Admin: 03/08/17 10:49 Dose: 500 mg Brimonidine Tartrate (Alphagan 0.2% Opht) 1 ml OU TID [facility] Last Admin: 03/08/17 10:52 Dose: 1 drop Collagenase (Santyl) 0 gm TOP DAILY [facility] Last Admin: 03/08/17 10:50 Dose: Not Given Dextrose (Dextrose 50% Inj) 0 ml IV STAT PRN; Protocol PRN Reason: Hyglycemia Protocol Dextrose (Glutose 15) 0 gm PO ONCE PRN; Protocol PRN Reason: Hypoglycemia Protocol Epoetin Maxwell (Procrit) 10,000 unit IV TTS [facility] Last Admin: 03/07/17 11:29 Dose: 10,000 unit Ergocalciferol (Drisdol 50,000 Intl Units Cap) 1 cap PO QWK [facility] Last Admin: 03/05/17 14:54 Dose: 1 cap Furosemide (Lasix) 40 mg PO DAILY [facility] Last Admin: 03/08/17 10:49 Dose: 40 mg Glucagon (Glucagen Diagnostic Kit) 0 mg IM STAT PRN; Protocol PRN Reason: Hypoglycemia Protocol Heparin Sodium (Porcine) (Heparin) 5,000 units SC Q8 [facility] Last Admin: 03/08/17 04:59 Dose: 5,000 units Heparin Sodium (Porcine) (Heparin) 3,700 units IVP TTS [facility] Stop: 03/24/17 23:59 Last Admin: 03/07/17 11:20 Dose: 3,700 units Hydralazine HCl (Apresoline) 25 mg PO BID [facility] Last Admin: 03/08/17 10:49 Dose: 25 mg Hydromorphone HCl (Dilaudid) 0.5 mg IVP Q6H PRN PRN Reason: Pain, severe (8-10) Last Admin: 03/08/17 10:50 Dose: 0.5 mg Tigecycline 50 mg/ Sodium (Chloride) 100 mls @ 100 mls/hr IVPB Q12H [facility] Last Admin: 03/08/17 08:33 Dose: 100 mls/hr Fluconazole (Diflucan Iv 200 Mg/100 Ml Ns) 100 mls @ 100 mls/hr IVPB DAILY [facility] Last Admin: 03/08/17 11:03 Dose: 100 mls/hr Sodium Chloride 35 meq/Potassium Chloride 30 meq/Magnesium Sulfate 6 meq/ Calcium Gluconate 4.5 meq/Heparin Sodium (Porcine) 1,000 units/ Amino Acids 1, 035.9052 mls @ 63 mls/hr IV .[id number] [facility] Stop: 03/08/17 18:00 Last Admin: 03/08/17 11:03 Dose: 63 mls/hr Sodium Chloride 35 meq/Potassium Chloride 30 meq/Magnesium Sulfate 6 meq/ Calcium Gluconate 4.5 meq/Heparin Sodium (Porcine) 1,000 units/ Amino Acids 1, 035.9052 mls @ 63 mls/hr IV .[id number] ONE Stop: 03/09/17 10:26 Sodium Chloride 35 meq/Potassium Chloride 30 meq/Magnesium Sulfate 6 meq/ Calcium Gluconate 4.5 meq/Heparin Sodium (Porcine) 1,000 units/ Amino Acids 1, 035.9052 mls @ 63 mls/hr IV .[id number] [facility] Stop: 03/09/17 17:59 Insulin Glargine (Lantus) 25 unit SC [facility] Last Admin: 03/07/17 21:03 Dose: 25 unit Insulin Human Regular (Novolin R) 0 unit SC [facility] PRN Reason: Protocol Last Admin: 03/08/17 08:33 Dose: 12 unit Latanoprost (Xalatan Opht) 0.02 ml OU HS [facility] Last Admin: 03/07/17 21:13 Dose: Not Given Losartan Potassium (Cozaar) 100 mg PO DAILY [facility] Last Admin: 03/08/17 10:49 Dose: 100 mg Pantoprazole Sodium (Protonix Inj) 40 mg IVP Q12H [facility] Last Admin: 03/08/17 04:26 Dose: 40 mg Rosuvastatin Calcium (Crestor) 10 mg PO HS [facility] Last Admin: 03/07/17 21:07 Dose: 10 mg Timolol Maleate (Timoptic 0.5% Oph Soln) 1 drop OU BID [facility] Last Admin: 03/08/17 10:51 Dose: 1 drop Vitamin B Complex/Vit C/Folic Acid (Nephro-Alonzo) 1 tab PO 0800 [facility] Last Admin: 03/08/17 08:33 Dose: 1 tab - Labs Labs: 03/07/17 10:03 03/07/17 10:03 PT 12.3 SECONDS (9.7-12.2) H 02/18/17 05:30 INR 1.1 02/18/17 05:30 APTT 30 SECONDS (21-34) 02/18/17 05:30 Attending/Attestation - Attestation I have personally seen and examined this patient.: Yes I have fully participated in the care of the patient.: Yes I have reviewed all pertinent clinical information, including history, physical exam and plan: Yes Notes (Text): 03/08/17 12:10 Agree with resident note and plan of care
[2017-03-03] MEDS: (Novolin R) Insulin Human Regular 100 units/ml vial SC SCH ×4 (07:44→22:40)
[2017-03-03] MEDS: Multivitamin Vitamin B Complex (Nephro-Vite) Tab PO SCH (08:22)
--- NOTE | 2017-03-03 08:25 | CP.PCM.PN ---
Subjective - Date & Time of Evaluation Date of Evaluation: 03/03/17 Time of Evaluation: 08:22 - Subjective Subjective: F/U dysphagia. EGD- esophagitis. Ulcers No report of melena, RB, SZ, tremor, hemoptysis, hematuria, VIRAMONTES, wheeze Objective - Vital Signs/Intake and Output Vital Signs (last 24 hours): Temp Pulse Resp BP Pulse Ox 98.8 F 78 20 92/60 L 96 03/02/17 23:38 03/02/17 23:38 03/02/17 23:38 03/02/17 23:38 03/02/17 23:38 Intake and Output: 03/03/17 03/03/17 06:59 18:59 Intake Total 630 Balance 630 - Medications Medications: Current Medications Acetaminophen (Tylenol 325mg Tab) 650 mg PO Q6 PRN PRN Reason: Pain, Mild (1-3) Last Admin: 02/28/17 14:48 Dose: 650 mg Amlodipine Besylate (Norvasc) 5 mg PO DAILY [facility] Last Admin: 03/02/17 11:30 Dose: 5 mg Ascorbic Acid (Vitamin C 500 Mg Tab) 500 mg PO DAILY [facility] Last Admin: 03/02/17 11:30 Dose: 500 mg Brimonidine Tartrate (Alphagan 0.2% Opht) 1 ml OU TID [facility] Last Admin: 03/02/17 18:34 Dose: 1 drop Collagenase (Santyl) 0 gm TOP DAILY [facility] Collagenase (Santyl) 0 gm TOP DAILY [facility] Last Admin: 03/02/17 14:00 Dose: 1 applic Dextrose (Dextrose 50% Inj) 0 ml IV STAT PRN; Protocol PRN Reason: Hyglycemia Protocol Dextrose (Glutose 15) 0 gm PO ONCE PRN; Protocol PRN Reason: Hypoglycemia Protocol Epoetin Maxwell (Procrit) 10,000 unit IV TTS [facility] Stop: 03/03/17 10:01 Last Admin: 02/28/17 10:40 Dose: 10,000 unit Ergocalciferol (Drisdol 50,000 Intl Units Cap) 1 cap PO QWK [facility] Last Admin: 02/26/17 10:51 Dose: Not Given Furosemide (Lasix) 40 mg PO DAILY [facility] Last Admin: 03/02/17 11:30 Dose: 40 mg Glucagon (Glucagen Diagnostic Kit) 0 mg IM STAT PRN; Protocol PRN Reason: Hypoglycemia Protocol Heparin Sodium (Porcine) (Heparin) 3,700 units IVP TTS [facility] Last Admin: 02/28/17 10:41 Dose: 3,700 units Heparin Sodium (Porcine) (Heparin) 5,000 units SC Q8 [facility] Last Admin: 03/03/17 05:48 Dose: 5,000 units Hydralazine HCl (Apresoline) 25 mg PO BID [facility] Last Admin: 03/02/17 18:35 Dose: 25 mg Tigecycline 50 mg/ Sodium (Chloride) 100 mls @ 100 mls/hr IVPB Q12H [facility] Last Admin: 03/03/17 08:15 Dose: Not Given Dextrose (Dextrose 5% In Water 1000 Ml) 1,000 mls @ 0 mls/hr IV .Q0M PRN; Protocol; Per Protocol PRN Reason: Hypoglycemia Protocol Metronidazole (Flagyl) 500 mg in 100 mls @ 100 mls/hr IVPB Q8 [facility] Last Admin: 03/03/17 05:49 Dose: 100 mls/hr Sodium Chloride 35 meq/Magnesium Sulfate 6 meq/Calcium Gluconate 4.5 meq/ Heparin Sodium (Porcine) 1,000 units/ Multivitamins/Vitamin C 10 ml/ Amino Acids 1,030.9052 mls @ 42 mls/hr IV .Q24H ONE Stop: 03/03/17 17:59 Last Admin: 03/02/17 18:36 Dose: 42 mls/hr Insulin Glargine (Lantus) 15 unit SC HS [facility] Last Admin: 03/02/17 22:13 Dose: 15 u Insulin Human Regular (Novolin R) 0 unit SC ACHS [facility] PRN Reason: Protocol Last Admin: 03/03/17 07:44 Dose: Not Given Latanoprost (Xalatan Opht) 0.02 ml OU HS [facility] Last Admin: 03/02/17 22:09 Dose: 0.02 ml Losartan Potassium (Cozaar) 100 mg PO DAILY [facility] Last Admin: 03/02/17 11:30 Dose: 100 mg Pantoprazole Sodium (Protonix Inj) 40 mg IVP Q12H [facility] Last Admin: 03/03/17 05:48 Dose: 40 mg Rosuvastatin Calcium (Crestor) 10 mg PO HS [facility] Last Admin: 03/02/17 22:08 Dose: 10 mg Timolol Maleate (Timoptic 0.5% Ophth Soln) 1 drop OU BID [facility] Last Admin: 03/02/17 18:34 Dose: 1 drop Vancomycin HCl (Vancocin (Oral Or Rectal Use)) 125 mg PO QID [facility] Last Admin: 03/02/17 22:46 Dose: 125 mg Vitamin B Complex/Vit C/Folic Acid (Nephro-Alonzo) 1 tab PO 0800 [facility] Last Admin: 03/03/17 08:22 Dose: 1 tab - Labs Labs: 03/01/17 11:37 03/01/17 11:37 PT 12.3 SECONDS (9.7-12.2) H 02/18/17 05:30 INR 1.1 02/18/17 05:30 APTT 30 SECONDS (21-34) 02/18/17 05:30 - Constitutional Appears: Non-toxic - Respiratory Exam Respiratory Exam: Rhonchi - Cardiovascular Exam Cardiovascular Exam: RRR - GI/Abdominal Exam GI & Abdominal Exam: Soft, Normal Bowel Sounds. absent: Tenderness - Extremities Exam Extremities Exam: absent: Calf Tenderness - Neurological Exam Neurological Exam: Alert. absent: Oriented x3 Assessment and Plan (1) Elevated WBC count Status: Acute (2) PUD (peptic ulcer disease) Assessment & Plan: On EGD. Status: Acute (3) Change in mental status Status: Acute (4) Clostridium difficile colitis Status: Acute (5) Dysphagia Assessment & Plan: esophagitis. PPI. Check P.O Status: Acute (6) End stage renal disease on dialysis Status: Acute (7) IDDM (insulin dependent diabetes mellitus) Status: Chronic
[2017-03-03 09:03] LABS: BASO # 0.1 K/uL (0.0-0.2); BASO % 0.5 % (0.0-2.0); EOS # 0.6 K/uL (0.0-0.7); EOS % 2.6 % (0.0-4.0); HEMATOCRIT 32.5 % (34.0-47.0); LYMPH # 1.8 K/uL (1.0-4.3); LYMPH % 8.2 % (20.0-40.0); MEAN CELL VOLUME 91.6 fL (81.0-99.0); MEAN CORPUSCULAR HEMOGLOBIN 28.3 pg (27.0-31.0); MEAN CORPUSCULAR HGB CONC 30.9 g/dL (33.0-37.0); MEAN PLATELET VOLUME 10.1 fL (7.2-11.7); MONO # 1.3 K/uL (0.0-0.8); MONO % 5.9 % (0.0-10.0); NRBC % 0.2 % (0.0-2.0); PLATELET COUNT 239 K/uL (130-400); RED CELL DISTRIBUTION WIDTH 20.7 % (11.5-14.5); WHITE BLOOD COUNT 22.2 K/uL (4.8-10.8)
--- NOTE | 2017-03-03 09:28 | CP.PCM.PN ---
Subjective - Date & Time of Evaluation Date of Evaluation: 03/03/17 Time of Evaluation: 07:00 - Subjective Subjective: Surgery Note for Dr. Broussard Patient seen and examined at bedside and in no acute distress. Patient still very lethargic but opened her eyes to verbal stimulus. ROS unobtainable. Objective - Vital Signs/Intake and Output Vital Signs (last 24 hours): Temp Pulse Resp BP Pulse Ox 97.2 F L 73 20 161/71 H 99 03/03/17 08:00 03/03/17 08:00 03/03/17 08:00 03/03/17 08:00 03/03/17 08:00 Intake and Output: 03/03/17 03/03/17 06:59 18:59 Intake Total 630 Balance 630 - Medications Medications: Current Medications Acetaminophen (Tylenol 325mg Tab) 650 mg PO Q6 PRN PRN Reason: Pain, Mild (1-3) Last Admin: 02/28/17 14:48 Dose: 650 mg Amlodipine Besylate (Norvasc) 5 mg PO DAILY [facility] Last Admin: 03/02/17 11:30 Dose: 5 mg Ascorbic Acid (Vitamin C 500 Mg Tab) 500 mg PO DAILY [facility] Last Admin: 03/02/17 11:30 Dose: 500 mg Brimonidine Tartrate (Alphagan 0.2% Opht) 1 ml OU TID [facility] Last Admin: 03/02/17 18:34 Dose: 1 drop Collagenase (Santyl) 0 gm TOP DAILY [facility] Collagenase (Santyl) 0 gm TOP DAILY [facility] Last Admin: 03/02/17 14:00 Dose: 1 applic Dextrose (Dextrose 50% Inj) 0 ml IV STAT PRN; Protocol PRN Reason: Hyglycemia Protocol Dextrose (Glutose 15) 0 gm PO ONCE PRN; Protocol PRN Reason: Hypoglycemia Protocol Epoetin Maxwell (Procrit) 10,000 unit IV TTS [facility] Stop: 03/03/17 10:01 Last Admin: 02/28/17 10:40 Dose: 10,000 unit Ergocalciferol (Drisdol 50,000 Intl Units Cap) 1 cap PO QWK [facility] Last Admin: 02/26/17 10:51 Dose: Not Given Furosemide (Lasix) 40 mg PO DAILY [facility] Last Admin: 03/02/17 11:30 Dose: 40 mg Glucagon (Glucagen Diagnostic Kit) 0 mg IM STAT PRN; Protocol PRN Reason: Hypoglycemia Protocol Heparin Sodium (Porcine) (Heparin) 3,700 units IVP TTS [facility] Last Admin: 02/28/17 10:41 Dose: 3,700 units Heparin Sodium (Porcine) (Heparin) 5,000 units SC Q8 [facility] Last Admin: 03/03/17 05:48 Dose: 5,000 units Hydralazine HCl (Apresoline) 25 mg PO BID [facility] Last Admin: 03/02/17 18:35 Dose: 25 mg Tigecycline 50 mg/ Sodium (Chloride) 100 mls @ 100 mls/hr IVPB Q12H [facility] Last Admin: 03/03/17 08:15 Dose: Not Given Dextrose (Dextrose 5% In Water 1000 Ml) 1,000 mls @ 0 mls/hr IV .Q0M PRN; Protocol; Per Protocol PRN Reason: Hypoglycemia Protocol Metronidazole (Flagyl) 500 mg in 100 mls @ 100 mls/hr IVPB Q8 [facility] Last Admin: 03/03/17 05:49 Dose: 100 mls/hr Sodium Chloride 35 meq/Magnesium Sulfate 6 meq/Calcium Gluconate 4.5 meq/ Heparin Sodium (Porcine) 1,000 units/ Multivitamins/Vitamin C 10 ml/ Amino Acids 1,030.9052 mls @ 42 mls/hr IV .Q24H ONE Stop: 03/03/17 17:59 Last Admin: 03/02/17 18:36 Dose: 42 mls/hr Insulin Glargine (Lantus) 15 unit SC HS [facility] Last Admin: 03/02/17 22:13 Dose: 15 u Insulin Human Regular (Novolin R) 0 unit SC ACHS [facility] PRN Reason: Protocol Last Admin: 03/03/17 07:44 Dose: Not Given Latanoprost (Xalatan Opht) 0.02 ml OU HS [facility] Last Admin: 03/02/17 22:09 Dose: 0.02 ml Losartan Potassium (Cozaar) 100 mg PO DAILY [facility] Last Admin: 03/02/17 11:30 Dose: 100 mg Pantoprazole Sodium (Protonix Inj) 40 mg IVP Q12H [facility] Last Admin: 03/03/17 05:48 Dose: 40 mg Rosuvastatin Calcium (Crestor) 10 mg PO HS [facility] Last Admin: 03/02/17 22:08 Dose: 10 mg Timolol Maleate (Timoptic 0.5% Ophth Soln) 1 drop OU BID [facility] Last Admin: 03/02/17 18:34 Dose: 1 drop Vancomycin HCl (Vancocin (Oral Or Rectal Use)) 125 mg PO QID [facility] Last Admin: 03/02/17 22:46 Dose: 125 mg Vitamin B Complex/Vit C/Folic Acid (Nephro-Alonzo) 1 tab PO 0800 [facility] Last Admin: 03/03/17 08:22 Dose: 1 tab - Labs Labs: 03/03/17 08:50 03/01/17 11:37 PT 12.3 SECONDS (9.7-12.2) H 02/18/17 05:30 INR 1.1 02/18/17 05:30 APTT 30 SECONDS (21-34) 02/18/17 05:30 - Constitutional Appears: Non-toxic, No Acute Distress - Head Exam Head Exam: ATRAUMATIC, NORMAL INSPECTION, NORMOCEPHALIC - Eye Exam Eye Exam: EOMI, Normal appearance - Respiratory Exam Respiratory Exam: NORMAL BREATHING PATTERN. absent: Accessory Muscle Use, Respiratory Distress - Cardiovascular Exam Cardiovascular Exam: REGULAR RHYTHM, +S1, +S2 - GI/Abdominal Exam GI & Abdominal Exam: Soft. absent: Tenderness - Extremities Exam Additional comments: Left foot ulcer, wound vac on - Neurological Exam Neurological Exam: Awake - Skin Additional comments: Left foot ulcer, wound vac on Assessment and Plan - Assessment and Plan (Free Text) Assessment: 71 y/o F POD#4 s/p LLE debridement and wound vac placement -f/u AM labs -monitor vitals -cont IV Abx per ID -cont medical management -change wound vac when white sponge comes in Further recs per Dr. Broussard
[2017-03-03 09:33] LABS: EOSINOPHIL 4 % (0-4); NEUTROPHIL 83 % (50-75); TOTAL CELLS COUNTED 100
[2017-03-03 09:39] LABS: POTASSIUM 3.8 mmol/L (3.6-5.2)
[2017-03-03 09:41] LABS: ALB/GLOB RATIO 0.9 (1.0-2.1); BILIRUBIN,TOTAL 0.5 mg/dL (0.2-1.3); TOTAL PROTEIN 4.6 g/dL (6.3-8.3)
[2017-03-03 09:42] LABS: CALCIUM 6.8 mg/dl (8.6-10.4); MAGNESIUM 1.8 mg/dL (1.6-2.3)
[2017-03-03] MEDS: Brimonidine 0.2% Opth Sol (5ml) OU SCH ×3 (11:07→19:10)
[2017-03-03] MEDS: Collagenase 250 Units/gm Ointment(30 gm) TOP SCH ×2 (11:07→11:08)
[2017-03-03] MEDS: Vancomycin 125 MG/5 ML SOLN (ORAL/RECTAL) PO SCH ×4 (11:08→22:00)
--- NOTE | 2017-03-03 11:38 | CP.PCM.PN ---
Subjective - Date & Time of Evaluation Date of Evaluation: 03/03/17 Time of Evaluation: 07:00 - Subjective Subjective: events noted iv rx in progress diflucan added consider d/c tygacil after 7 days Objective - Vital Signs/Intake and Output Vital Signs (last 24 hours): Temp Pulse Resp BP Pulse Ox 97.5 F L 76 16 162/46 H 97 03/03/17 10:00 03/03/17 11:00 03/03/17 11:00 03/03/17 11:00 03/03/17 11:00 Intake and Output: 03/03/17 03/03/17 06:59 18:59 Intake Total 630 Balance 630 - Medications Medications: Current Medications Acetaminophen (Tylenol 325mg Tab) 650 mg PO Q6 PRN PRN Reason: Pain, Mild (1-3) Last Admin: 03/03/17 11:02 Dose: 650 mg Amlodipine Besylate (Norvasc) 5 mg PO DAILY [facility] Last Admin: 03/03/17 11:07 Dose: Not Given Ascorbic Acid (Vitamin C 500 Mg Tab) 500 mg PO DAILY [facility] Last Admin: 03/03/17 11:08 Dose: Not Given Brimonidine Tartrate (Alphagan 0.2% Opht) 1 ml OU TID [facility] Last Admin: 03/03/17 11:07 Dose: Not Given Collagenase (Santyl) 0 gm TOP DAILY [facility] Last Admin: 03/03/17 11:07 Dose: Not Given Collagenase (Santyl) 0 gm TOP DAILY [facility] Last Admin: 03/03/17 11:08 Dose: Not Given Dextrose (Dextrose 50% Inj) 0 ml IV STAT PRN; Protocol PRN Reason: Hyglycemia Protocol Dextrose (Glutose 15) 0 gm PO ONCE PRN; Protocol PRN Reason: Hypoglycemia Protocol Ergocalciferol (Drisdol 50,000 Intl Units Cap) 1 cap PO QWK [facility] Last Admin: 02/26/17 10:51 Dose: Not Given Furosemide (Lasix) 40 mg PO DAILY [facility] Last Admin: 03/03/17 11:07 Dose: Not Given Glucagon (Glucagen Diagnostic Kit) 0 mg IM STAT PRN; Protocol PRN Reason: Hypoglycemia Protocol Heparin Sodium (Porcine) (Heparin) 3,700 units IVP TTS [facility] Last Admin: 02/28/17 10:41 Dose: 3,700 units Heparin Sodium (Porcine) (Heparin) 5,000 units SC Q8 [facility] Last Admin: 03/03/17 05:48 Dose: 5,000 units Hydralazine HCl (Apresoline) 25 mg PO BID [facility] Last Admin: 03/03/17 11:06 Dose: Not Given Hydromorphone HCl (Dilaudid) 0.5 mg IVP Q6H PRN PRN Reason: Pain, severe (8-10) Tigecycline 50 mg/ Sodium (Chloride) 100 mls @ 100 mls/hr IVPB Q12H [facility] Last Admin: 03/03/17 08:15 Dose: Not Given Dextrose (Dextrose 5% In Water 1000 Ml) 1,000 mls @ 0 mls/hr IV .Q0M PRN; Protocol; Per Protocol PRN Reason: Hypoglycemia Protocol Metronidazole (Flagyl) 500 mg in 100 mls @ 100 mls/hr IVPB Q8 [facility] Last Admin: 03/03/17 05:49 Dose: 100 mls/hr Sodium Chloride 35 meq/Magnesium Sulfate 6 meq/Calcium Gluconate 4.5 meq/ Heparin Sodium (Porcine) 1,000 units/ Multivitamins/Vitamin C 10 ml/ Amino Acids 1,030.9052 mls @ 42 mls/hr IV .Q24H ONE Stop: 03/03/17 17:59 Last Admin: 03/02/17 18:36 Dose: 42 mls/hr Insulin Glargine (Lantus) 15 unit SC [facility] Last Admin: 03/02/17 22:13 Dose: 15 u Insulin Human Regular (Novolin R) 0 unit SC [facility] PRN Reason: Protocol Last Admin: 03/03/17 07:44 Dose: Not Given Latanoprost (Xalatan Opht) 0.02 ml OU HS [facility] Last Admin: 03/02/17 22:09 Dose: 0.02 ml Losartan Potassium (Cozaar) 100 mg PO DAILY [facility] Last Admin: 03/03/17 11:07 Dose: Not Given Pantoprazole Sodium (Protonix Inj) 40 mg IVP Q12H [facility] Last Admin: 03/03/17 05:48 Dose: 40 mg Rosuvastatin Calcium (Crestor) 10 mg PO HS [facility] Last Admin: 03/02/17 22:08 Dose: 10 mg Timolol Maleate (Timoptic 0.5% Ophth Soln) 1 drop OU BID [facility] Last Admin: 03/03/17 11:08 Dose: Not Given Vancomycin HCl (Vancocin (Oral Or Rectal Use)) 125 mg PO QID [facility] Last Admin: 03/03/17 11:08 Dose: Not Given Vitamin B Complex/Vit C/Folic Acid (Nephro-Alonzo) 1 tab PO 0800 [facility] Last Admin: 03/03/17 08:22 Dose: 1 tab - Labs Labs: 03/03/17 08:50 03/03/17 08:50 PT 12.3 SECONDS (9.7-12.2) H 02/18/17 05:30 INR 1.1 02/18/17 05:30 APTT 30 SECONDS (21-34) 02/18/17 05:30 - Constitutional Appears: Confused, Chronically Ill - Head Exam Head Exam: NORMOCEPHALIC - Eye Exam Eye Exam: absent: Scleral icterus - ENT Exam ENT Exam: Mucous Membranes Dry - Neck Exam Neck Exam: absent: Lymphadenopathy - Respiratory Exam Respiratory Exam: Decreased Breath Sounds, Rhonchi - Cardiovascular Exam Cardiovascular Exam: REGULAR RHYTHM - GI/Abdominal Exam GI & Abdominal Exam: Distended, Soft - Rectal Exam Rectal Exam: Deferred Assessment and Plan (1) Change in mental status Status: Acute (2) End stage renal disease on dialysis Status: Acute (3) Heel ulcer Status: Acute (4) IDDM (insulin dependent diabetes mellitus) Status: Chronic
[2017-03-03] MEDS: HYDROmorphone 0.5 mg/0.5 ml ISec IVP PRN (11:39)
[2017-03-03] MEDS ORDERED: Epoetin Alfa 10,000 unit/ml Dialysis IV SCH (12:15)
--- NOTE | 2017-03-03 16:49 | CP.PCM.PN ---
Subjective - Date & Time of Evaluation Date of Evaluation: 03/03/17 Time of Evaluation: 15:20 - Subjective Subjective: patient seen and examined Lying in no respiratory distress Lethargic and open eyes to stimuli Afebrile Objective - Vital Signs/Intake and Output Vital Signs (last 24 hours): Temp Pulse Resp BP Pulse Ox 97.7 F 72 18 136/50 L 99 03/03/17 15:15 03/03/17 15:15 03/03/17 15:15 03/03/17 15:15 03/03/17 15:15 Intake and Output: 03/03/17 03/03/17 06:59 18:59 Intake Total 630 Balance 630 - Medications Medications: Current Medications Acetaminophen (Tylenol 325mg Tab) 650 mg PO Q6 PRN PRN Reason: Pain, Mild (1-3) Last Admin: 03/03/17 11:02 Dose: 650 mg Amlodipine Besylate (Norvasc) 5 mg PO DAILY [facility] Last Admin: 03/03/17 14:33 Dose: 5 mg Ascorbic Acid (Vitamin C 500 Mg Tab) 500 mg PO DAILY [facility] Last Admin: 03/03/17 14:33 Dose: 500 mg Brimonidine Tartrate (Alphagan 0.2% Opht) 1 ml OU TID [facility] Last Admin: 03/03/17 14:33 Dose: 2 drop Collagenase (Santyl) 0 gm TOP DAILY [facility] Last Admin: 03/03/17 11:07 Dose: Not Given Collagenase (Santyl) 0 gm TOP DAILY [facility] Last Admin: 03/03/17 11:08 Dose: Not Given Dextrose (Dextrose 50% Inj) 0 ml IV STAT PRN; Protocol PRN Reason: Hyglycemia Protocol Dextrose (Glutose 15) 0 gm PO ONCE PRN; Protocol PRN Reason: Hypoglycemia Protocol Ergocalciferol (Drisdol 50,000 Intl Units Cap) 1 cap PO QWK [facility] Last Admin: 02/26/17 10:51 Dose: Not Given Furosemide (Lasix) 40 mg PO DAILY [facility] Last Admin: 03/03/17 14:34 Dose: 40 mg Glucagon (Glucagen Diagnostic Kit) 0 mg IM STAT PRN; Protocol PRN Reason: Hypoglycemia Protocol Heparin Sodium (Porcine) (Heparin) 3,700 units IVP TTS [facility] Last Admin: 03/03/17 12:07 Dose: 3,700 units Heparin Sodium (Porcine) (Heparin) 5,000 units SC Q8 [facility] Last Admin: 03/03/17 14:34 Dose: 5,000 units Hydralazine HCl (Apresoline) 25 mg PO BID [facility] Last Admin: 03/03/17 11:06 Dose: Not Given Hydromorphone HCl (Dilaudid) 0.5 mg IVP Q6H PRN PRN Reason: Pain, severe (8-10) Last Admin: 03/03/17 11:39 Dose: 0.5 mg Tigecycline 50 mg/ Sodium (Chloride) 100 mls @ 100 mls/hr IVPB Q12H [facility] Last Admin: 03/03/17 08:15 Dose: Not Given Dextrose (Dextrose 5% In Water 1000 Ml) 1,000 mls @ 0 mls/hr IV .Q0M PRN; Protocol; Per Protocol PRN Reason: Hypoglycemia Protocol Metronidazole (Flagyl) 500 mg in 100 mls @ 100 mls/hr IVPB Q8 [facility] Last Admin: 03/03/17 14:34 Dose: 100 mls/hr Sodium Chloride 35 meq/Magnesium Sulfate 6 meq/Calcium Gluconate 4.5 meq/ Heparin Sodium (Porcine) 1,000 units/ Multivitamins/Vitamin C 10 ml/ Amino Acids 1,030.9052 mls @ 42 mls/hr IV .Q24H ONE Stop: 03/03/17 17:59 Last Admin: 03/02/17 18:36 Dose: 42 mls/hr Fluconazole (Diflucan Iv 200 Mg/100 Ml Ns) 100 mls @ 100 mls/hr IVPB DAILY [facility] Sodium Chloride 35 meq/Potassium Chloride 30 meq/Magnesium Sulfate 6 meq/ Calcium Gluconate 4.5 meq/Heparin Sodium (Porcine) 1,000 units/ Multivitamins/ Vitamin C 10 ml/ Amino Acids 1,045.9052 mls @ 42 mls/hr IV .Q24H [facility] Stop: 03/04/17 17:59 Insulin Glargine (Lantus) 15 unit SC [facility] Last Admin: 03/02/17 22:13 Dose: 15 u Insulin Human Regular (Novolin R) 0 unit SC ACHS [facility] PRN Reason: Protocol Last Admin: 03/03/17 12:05 Dose: Not Given Latanoprost (Xalatan Opht) 0.02 ml OU HS [facility] Last Admin: 03/02/17 22:09 Dose: 0.02 ml Losartan Potassium (Cozaar) 100 mg PO DAILY [facility] Last Admin: 03/03/17 14:33 Dose: 100 mg Pantoprazole Sodium (Protonix Inj) 40 mg IVP Q12H [facility] Last Admin: 03/03/17 05:48 Dose: 40 mg Rosuvastatin Calcium (Crestor) 10 mg PO HS [facility] Last Admin: 03/02/17 22:08 Dose: 10 mg Timolol Maleate (Timoptic 0.5% [facility] Sol) 1 drop OU BID [facility] Last Admin: 03/03/17 11:08 Dose: Not Given Vancomycin HCl (Vancocin (Oral Or Rectal Use)) 125 mg PO QID [facility] Last Admin: 03/03/17 15:10 Dose: 125 mg Vitamin B Complex/Vit C/Folic Acid (Nephro-Alonzo) 1 tab PO 0800 [facility] Last Admin: 03/03/17 08:22 Dose: 1 tab - Labs Labs: 03/03/17 08:50 03/03/17 08:50 PT 12.3 SECONDS (9.7-12.2) H 02/18/17 05:30 INR 1.1 02/18/17 05:30 APTT 30 SECONDS (21-34) 02/18/17 05:30 - ENT Exam ENT Exam: Mucous Membranes Moist - Neck Exam Neck Exam: Normal Inspection - Respiratory Exam Respiratory Exam: Decreased Breath Sounds - GI/Abdominal Exam GI & Abdominal Exam: Soft, Normal Bowel Sounds Assessment and Plan (1) Pleural effusion Assessment & Plan: Status post thoracentesis most likely secondary to renal failure and CHF Status: Chronic (2) Change in mental status Status: Acute (3) Clostridium difficile colitis Status: Acute (4) End stage renal disease on dialysis Status: Acute
[2017-03-03] MEDS: Fluconazole IV 200mg/100 ml NS 100 ML IVPB SCH (17:27)
[2017-03-03] MEDS ORDERED: TPN#3 IV SCH (18:00)
--- NOTE | 2017-03-03 18:35 | CP.PCM.PN ---
Subjective - Date & Time of Evaluation Date of Evaluation: 03/03/17 Time of Evaluation: 13:00 - Subjective Subjective: SEEN ON RENAL F/U SEEN ON HD ON BED SIDE PT VERBALY ANSWERED ME TODAY FOR THE DELIGHT OF THE APPEARE HEMODYNAMICALLY STABLE Objective - Vital Signs/Intake and Output Vital Signs (last 24 hours): Temp Pulse Resp BP Pulse Ox 97.7 F 72 18 136/50 L 99 03/03/17 15:15 03/03/17 15:15 03/03/17 15:15 03/03/17 15:15 03/03/17 15:15 Intake and Output: 03/03/17 03/03/17 06:59 18:59 Intake Total 630 Balance 630 - Medications Medications: Current Medications Acetaminophen (Tylenol 325mg Tab) 650 mg PO Q6 PRN PRN Reason: Pain, Mild (1-3) Last Admin: 03/03/17 11:02 Dose: 650 mg Amlodipine Besylate (Norvasc) 5 mg PO DAILY [facility] Last Admin: 03/03/17 14:33 Dose: 5 mg Ascorbic Acid (Vitamin C 500 Mg Tab) 500 mg PO DAILY [facility] Last Admin: 03/03/17 14:33 Dose: 500 mg Brimonidine Tartrate (Alphagan 0.2% Opht) 1 ml OU TID [facility] Last Admin: 03/03/17 14:33 Dose: 2 drop Collagenase (Santyl) 0 gm TOP DAILY [facility] Last Admin: 03/03/17 11:07 Dose: Not Given Collagenase (Santyl) 0 gm TOP DAILY [facility] Last Admin: 03/03/17 11:08 Dose: Not Given Dextrose (Dextrose 50% Inj) 0 ml IV STAT PRN; Protocol PRN Reason: Hyglycemia Protocol Dextrose (Glutose 15) 0 gm PO ONCE PRN; Protocol PRN Reason: Hypoglycemia Protocol Ergocalciferol (Drisdol 50,000 Intl Units Cap) 1 cap PO QWK [facility] Last Admin: 02/26/17 10:51 Dose: Not Given Furosemide (Lasix) 40 mg PO DAILY [facility] Last Admin: 03/03/17 14:34 Dose: 40 mg Glucagon (Glucagen Diagnostic Kit) 0 mg IM STAT PRN; Protocol PRN Reason: Hypoglycemia Protocol Heparin Sodium (Porcine) (Heparin) 3,700 units IVP TTS [facility] Last Admin: 03/03/17 12:07 Dose: 3,700 units Heparin Sodium (Porcine) (Heparin) 5,000 units SC Q8 [facility] Last Admin: 03/03/17 14:34 Dose: 5,000 units Hydralazine HCl (Apresoline) 25 mg PO BID [facility] Last Admin: 03/03/17 11:06 Dose: Not Given Hydromorphone HCl (Dilaudid) 0.5 mg IVP Q6H PRN PRN Reason: Pain, severe (8-10) Last Admin: 03/03/17 11:39 Dose: 0.5 mg Tigecycline 50 mg/ Sodium (Chloride) 100 mls @ 100 mls/hr IVPB Q12H [facility] Last Admin: 03/03/17 08:15 Dose: Not Given Dextrose (Dextrose 5% In Water 1000 Ml) 1,000 mls @ 0 mls/hr IV .Q0M PRN; Protocol; Per Protocol PRN Reason: Hypoglycemia Protocol Metronidazole (Flagyl) 500 mg in 100 mls @ 100 mls/hr IVPB Q8 [facility] Last Admin: 03/03/17 14:34 Dose: 100 mls/hr Fluconazole (Diflucan Iv 200 Mg/100 Ml Ns) 100 mls @ 100 mls/hr IVPB DAILY [facility] Last Admin: 03/03/17 17:27 Dose: 100 mls/hr Sodium Chloride 35 meq/Potassium Chloride 30 meq/Magnesium Sulfate 6 meq/ Calcium Gluconate 4.5 meq/Heparin Sodium (Porcine) 1,000 units/ Multivitamins/ Vitamin C 10 ml/ Amino Acids 1,045.9052 mls @ 42 mls/hr IV .Q24H [facility] Stop: 03/04/17 17:59 Insulin Glargine (Lantus) 15 unit SC HS [facility] Last Admin: 03/02/17 22:13 Dose: 15 u Insulin Human Regular (Novolin R) 0 unit SC ACHS [facility] PRN Reason: Protocol Last Admin: 03/03/17 12:05 Dose: Not Given Latanoprost (Xalatan Opht) 0.02 ml OU HS [facility] Last Admin: 03/02/17 22:09 Dose: 0.02 ml Losartan Potassium (Cozaar) 100 mg PO DAILY [facility] Last Admin: 03/03/17 14:33 Dose: 100 mg Pantoprazole Sodium (Protonix Inj) 40 mg IVP Q12H [facility] Last Admin: 03/03/17 05:48 Dose: 40 mg Rosuvastatin Calcium (Crestor) 10 mg PO HS [facility] Last Admin: 03/02/17 22:08 Dose: 10 mg Timolol Maleate (Timoptic 0.5% Oph Soln) 1 drop OU BID [facility] Last Admin: 03/03/17 11:08 Dose: Not Given Vancomycin HCl (Vancocin (Oral Or Rectal Use)) 125 mg PO QID [facility] Last Admin: 03/03/17 15:10 Dose: 125 mg Vitamin B Complex/Vit C/Folic Acid (Nephro-Alonzo) 1 tab PO 0800 [facility] Last Admin: 03/03/17 08:22 Dose: 1 tab - Labs Labs: 03/03/17 08:50 03/03/17 08:50 PT 12.3 SECONDS (9.7-12.2) H 02/18/17 05:30 INR 1.1 02/18/17 05:30 APTT 30 SECONDS (21-34) 02/18/17 05:30 Assessment and Plan - Assessment and Plan (Free Text) Assessment: ESRD ON HD T T S ANEMIA OF CKD .. H/H STABLE L LEG SEVERE PAD .. S/P ANGIOPLASTY C/O CURRENT CARE
[2017-03-03] MEDS: Latanoprost 2.5 ml Opht Soln OU SCH (22:36)
[2017-03-03] MEDS: (Lantus) Insulin Glargine, Recombinant SC SCH (22:39)
[2017-03-04] MEDS: metroNIDAZOLE IV 500 mg/100 ml 500 MG/100 ML BAG IVPB SCH ×3 (05:40→23:05)
--- NOTE | 2017-03-04 07:11 | CP.PCM.PN ---
<Piyush Segura - Last Filed: 03/04/17 18:36> Subjective - Date & Time of Evaluation Date of Evaluation: 03/04/17 Time of Evaluation: 07:50 - Subjective Subjective: PGY-[address] Myrick Patient seen and examined at bedside. Patient more responsive than before and can utter short syllable words. Full ROS unable to ascertain. Patient recognizing care providers and family. Able to follow basic commands. Objective - Vital Signs/Intake and Output Vital Signs (last 24 hours): Temp Pulse Resp BP Pulse Ox 97.4 F L 69 20 117/55 L 95 03/03/17 23:20 03/03/17 23:20 03/03/17 23:20 03/03/17 23:20 03/03/17 23:20 - Medications Medications: Current Medications Acetaminophen (Tylenol 325mg Tab) 650 mg PO Q6 PRN PRN Reason: Pain, Mild (1-3) Last Admin: 03/03/17 11:02 Dose: 650 mg Amlodipine Besylate (Norvasc) 5 mg PO DAILY [facility] Last Admin: 03/03/17 14:33 Dose: 5 mg Ascorbic Acid (Vitamin C 500 Mg Tab) 500 mg PO DAILY [facility] Last Admin: 03/03/17 14:33 Dose: 500 mg Brimonidine Tartrate (Alphagan 0.2% Opht) 1 ml OU TID [facility] Last Admin: 03/03/17 19:10 Dose: 1 drop Collagenase (Santyl) 0 gm TOP DAILY [facility] Last Admin: 03/03/17 11:07 Dose: Not Given Collagenase (Santyl) 0 gm TOP DAILY [facility] Last Admin: 03/03/17 11:08 Dose: Not Given Dextrose (Dextrose 50% Inj) 0 ml IV STAT PRN; Protocol PRN Reason: Hyglycemia Protocol Dextrose (Glutose 15) 0 gm PO ONCE PRN; Protocol PRN Reason: Hypoglycemia Protocol Ergocalciferol (Drisdol 50,000 Intl Units Cap) 1 cap PO QWK [facility] Last Admin: 02/26/17 10:51 Dose: Not Given Furosemide (Lasix) 40 mg PO DAILY [facility] Last Admin: 03/03/17 14:34 Dose: 40 mg Glucagon (Glucagen Diagnostic Kit) 0 mg IM STAT PRN; Protocol PRN Reason: Hypoglycemia Protocol Heparin Sodium (Porcine) (Heparin) 3,700 units IVP TTS [facility] Last Admin: 03/03/17 12:07 Dose: 3,700 units Heparin Sodium (Porcine) (Heparin) 5,000 units SC Q8 [facility] Last Admin: 03/04/17 05:40 Dose: 5,000 units Hydralazine HCl (Apresoline) 25 mg PO BID [facility] Last Admin: 03/03/17 19:10 Dose: 25 mg Hydromorphone HCl (Dilaudid) 0.5 mg IVP Q6H PRN PRN Reason: Pain, severe (8-10) Last Admin: 03/03/17 11:39 Dose: 0.5 mg Tigecycline 50 mg/ Sodium (Chloride) 100 mls @ 100 mls/hr IVPB Q12H [facility] Last Admin: 03/03/17 22:07 Dose: 100 mls/hr Dextrose (Dextrose 5% In Water 1000 Ml) 1,000 mls @ 0 mls/hr IV .Q0M PRN; Protocol; Per Protocol PRN Reason: Hypoglycemia Protocol Metronidazole (Flagyl) 500 mg in 100 mls @ 100 mls/hr IVPB Q8 [facility] Last Admin: 03/04/17 05:40 Dose: 100 mls/hr Fluconazole (Diflucan Iv 200 Mg/100 Ml Ns) 100 mls @ 100 mls/hr IVPB DAILY [facility] Last Admin: 03/03/17 17:27 Dose: 100 mls/hr Sodium Chloride 35 meq/Potassium Chloride 30 meq/Magnesium Sulfate 6 meq/ Calcium Gluconate 4.5 meq/Heparin Sodium (Porcine) 1,000 units/ Multivitamins/ Vitamin C 10 ml/ Amino Acids 1,045.9052 mls @ 42 mls/hr IV .Q24H [facility] Stop: 03/04/17 17:59 Last Admin: 03/03/17 18:53 Dose: 42 mls/hr Insulin Glargine (Lantus) 15 unit SC HS [facility] Last Admin: 03/03/17 22:39 Dose: 15 u Insulin Human Regular (Novolin R) 0 unit SC ACHS [facility] PRN Reason: Protocol Last Admin: 03/03/17 22:40 Dose: 3 unit Latanoprost (Xalatan Opht) 0.02 ml OU HS [facility] Last Admin: 03/03/17 22:36 Dose: 0.02 ml Losartan Potassium (Cozaar) 100 mg PO DAILY [facility] Last Admin: 03/03/17 14:33 Dose: 100 mg Pantoprazole Sodium (Protonix Inj) 40 mg IVP Q12H [facility] Last Admin: 03/04/17 04:27 Dose: 40 mg Rosuvastatin Calcium (Crestor) 10 mg PO HS [facility] Last Admin: 03/03/17 22:07 Dose: Not Given Timolol Maleate (Timoptic 0.5% Ophth Soln) 1 drop OU BID [facility] Last Admin: 03/03/17 18:53 Dose: 1 drop Vancomycin HCl (Vancocin (Oral Or Rectal Use)) 125 mg PO QID [facility] Last Admin: 03/03/17 19:09 Dose: 125 mg Vitamin B Complex/Vit C/Folic Acid (Nephro-Alonzo) 1 tab PO 0800 [facility] Last Admin: 03/03/17 08:22 Dose: 1 tab - Labs Labs: 03/03/17 08:50 03/03/17 08:50 PT 12.3 SECONDS (9.7-12.2) H 02/18/17 05:30 INR 1.1 02/18/17 05:30 APTT 30 SECONDS (21-34) 02/18/17 05:30 - Constitutional Appears: No Acute Distress, Chronically Ill - Head Exam Head Exam: ATRAUMATIC, NORMOCEPHALIC - Eye Exam Eye Exam: EOMI, PERRL - ENT Exam ENT Exam: Mucous Membranes Moist - Respiratory Exam Respiratory Exam: Clear to Ausculation Bilateral. absent: Rales, Rhonchi, Wheezes - Cardiovascular Exam Cardiovascular Exam: REGULAR RHYTHM, +S1, +S2 - GI/Abdominal Exam GI & Abdominal Exam: Soft, Normal Bowel Sounds. absent: Tenderness - Extremities Exam Extremities Exam: absent: Pedal Edema Additional comments: Chronic venous stasis changes bilaterally in the legs Left foot ulcer with 10x5 cm eschar spanning lateral plantar surface s/p debridement now with wound vac in place for left foot wound. - Neurological Exam Neurological Exam: Alert, Awake - Skin Skin Exam: Dry, Pallor Assessment and Plan - Assessment and Plan (Free Text) Plan: 1. Non-Healing Left Heel Ulcer 03/02: Wound vac was replaced this afternoon. Gram positive cocci grew in the blood cultures. 03/01: POD #2 s/p debridement of L foot ulcer. Patient's WBC increased to 21.7 with left shift. Lactate 2.8--> repeat 1.9; recheck blood cultures today. Plan to change wound vac on foot tomorrow. 02/26/17: Patient underwent aortofemoral angiogram via right groin with selective catheterization of left anterior femoral artery. Balloon angioplasty of popliteal artery. Pathway arthrectomy and balloon angioplasty of anterior tibial artery. 02/27/17: Debridement of left foot ulcer with wound vac placed and cultures taken. Podiatry consult - Dr. Avery, help appreciated Infectious Disease Dr. Wellington consulted, help appreciated. Dr. Broussard on board, help appreciated. Low ext arterial duplex (02/04/17): R- occlusion R post tib artery, 50-75% stenosis right mid popliteal & proximal anterior tib arteries L- occlusion of left post tib artery, >75% stenosis left proximal ant tibial artery, 50-75% stenosis left distal SFA & proximal popliteal a. Vancomycin 1000 mg IV [facility] D/C'ed on 02/22/17 Cefepime 1 gm IV Q24H 02/18/17 to 02/23/17 Zyvox 600 mg PO BID started 02/22/17-02/23/17 Current antibiotics: Tygacil 100 mg loading dose on 02/25/17 and then continued as Tygacil 50 mg IV Q12H, Vanco 125mg PO QID, Flagyl 500mg IV q8h Abdominal Angiography 02/19/17: Severe bilateral lower extremity arterial runoff with 1 vessel likely remaining patent at the right. None is continuously patent at the left lower extremity [id number]. Widely patent abdominal aorta and iliac arterial system with moderate right and [id number] left femoral arterial disease. Severe bilateral popliteal artery arterial disease. Dr. Avery recommended Left BKA given his physical exam findings. Dr. Broussard also recommends the left BKA. He stated that even if the gangrenous portion is removed, it will not heal regardless of revascularization. As of 02/25, the patient's family has decided for her to stay and have Dr. Broussard clean the wound and improve the circulation in the leg. Before this, they were adamant about getting the patient to [facility] for hyperbaric therapy to try to salvage the leg. They still do not wish for amputation at this time. 2. Left Pleural Effusion 03/02: 500 cc clear fluid drained from the left pleura 03/01: Chest X-ray ordered showed left sided pleural effusion new since admission (see full report) f/u CT chest without contrast Ordered thoracentesis with fluid studies Consulted Transfer Driver Dr John- jacqui f/u recommendations 3. C. Diff C. Diff studies positive Patient on isolation contact precaution Vancomycin 125 mg PO QID started Dr. Wellington added Flagyl 500 mg IV Q8H f/u repeat C diff and stool culture on 02/28 4. Altered Mental Status 03/01: Patient obtunded this AM due to Gabapentin that was given night prior ( renally excreted). Gabapentin was discontinued. Repeat CT head without contrast was ordered this morning which was negative for acute infarct. Avoid pain medications that are renally excreted at this time. CT Head negative for Acute Territorial Infarction Patient found hypoglycemic by both and EMS with symptoms that suggest seizure episode. Patient is a poorly controlled diabetic. Monitor Accuchecks qACHS and Q4H Patient likely had an episode of neuroglycopenia and currently in post-ictal state. Due to post-ictal state, decision made to avoid narcotic pain medications. [employer] LEAD performed successful bedside swallow eval and recommended Pureed diet with thin liquids. Home PO meds restarted. Neurology consult Dr. Tanisha Aguirre, help appreciated. Thiamine 100 mg Q8H Could not get brain MRI which was neuro's recommendation due to 3 previous attempts where patient was moving too much. We do not wish to further sedate the patient due to her current mental state, so instead a repeat CT Head without contrast was done on 02/23/17. This CT head did not demonstrate any acute hemorrhagic or ischemic pathology. 5. End Stage Renal Disease on Hemodialysis On HD T,,S Dr. Ambrose nephrology consulted- help appreciated 6. Decreased oral intake 03/01: Patient unable to eat due to altered mental status. Status changed to NPO at this time. Starting TPN for nutrition to be given via PICC line. Albumin decreasing, 2.1 today -Diflucan was added empirically by GI team. 7. Hypertension 03/02: Patient resumed oral BP medications today and tolerated without issue. 03/01: Patient normotensive, held oral BP medications due to NPO status. Given Lasix 20mg IV x1 dose. Will monitor BP q4h and given medications as needed. PO Home medications held * Norvasc 5 mg PO daily * Losartan 100 mg PO daily * Furosemide 40 mg PO daily * Held Bumex for now Monitor BP q6h and adjust meds as needed 8. Anemia of Chronic Disease Hgb stable Likely secondary to ESRD Dr. Ambrose put for IV ferlicet 125 mg and Procrit 10,000 units IV Monitor CBC daily 9. Diabetes 03/01: Patient having multiple episodes of hypoglycemia causing mental status change. Stopping standing insulin. See [employer]IST note for more information. Accuchecks qACHS [facility] Home Lantus 30 units SC HS- reduced to 15 units HS Crestor 10mg PO HS 10. Prophylactic Measures SCDs Heparin 5000 units SC Q8H 1:1 observation due to agitation. Patient tries to get out of bed. Fall precautions Palliative care consult-family meeting at 03/05/17. Disposition: This patient has a very poor prognosis. The family wishes to try to save the leg despite multiple professional opinions on the necessity of an amputation. The family initially wished for the patient to go to [facility] where hyperbaric therapy is available in order to promote healing. They wished to be cared for by their personal telegraph dispatcher Dr. Ware; however, Dr. Ware has become unavailable. So the family decided to remain at [facility] and attempt healing via vascular surgery to improve circulation and wound debridement of damaged tissue. They were repeatedly warned by multiple coroner/medical examiner of the risks associated with refusing a BKA and attempting to salvage the foot. The family verbalized understanding of the risks but still decide against a BKA at this time. Case DW Dr. Ramez Segura PGY-1 <Benson Myrick Jr. - Last Filed: 03/08/17 12:12> Objective - Vital Signs/Intake and Output Vital Signs (last 24 hours): Temp Pulse Resp BP Pulse Ox 97.9 F 76 20 166/69 H 98 03/08/17 08:12 03/08/17 08:12 03/08/17 08:12 03/08/17 10:49 03/08/17 08:12 Intake and Output: 03/08/17 03/08/17 06:59 18:59 Intake Total 770 Balance 770 - Medications Medications: Current Medications Acetaminophen (Tylenol 325mg Tab) 650 mg PO Q6 PRN PRN Reason: Pain, Mild (1-3) Last Admin: 03/07/17 18:20 Dose: 650 mg Amlodipine Besylate (Norvasc) 5 mg PO DAILY [facility] Last Admin: 03/08/17 10:50 Dose: 5 mg Ascorbic Acid (Vitamin C 500 Mg Tab) 500 mg PO DAILY [facility] Last Admin: 03/08/17 10:49 Dose: 500 mg Brimonidine Tartrate (Alphagan 0.2% Opht) 1 ml OU TID [facility] Last Admin: 03/08/17 10:52 Dose: 1 drop Collagenase (Santyl) 0 gm TOP DAILY [facility] Last Admin: 03/08/17 10:50 Dose: Not Given Dextrose (Dextrose 50% Inj) 0 ml IV STAT PRN; Protocol PRN Reason: Hyglycemia Protocol Dextrose (Glutose 15) 0 gm PO ONCE PRN; Protocol PRN Reason: Hypoglycemia Protocol Epoetin Maxwell (Procrit) 10,000 unit IV TTS [facility] Last Admin: 03/07/17 11:29 Dose: 10,000 unit Ergocalciferol (Drisdol 50,000 Intl Units Cap) 1 cap PO QWK [facility] Last Admin: 03/05/17 14:54 Dose: 1 cap Furosemide (Lasix) 40 mg PO DAILY [facility] Last Admin: 03/08/17 10:49 Dose: 40 mg Glucagon (Glucagen Diagnostic Kit) 0 mg IM STAT PRN; Protocol PRN Reason: Hypoglycemia Protocol Heparin Sodium (Porcine) (Heparin) 5,000 units SC Q8 [facility] Last Admin: 03/08/17 04:59 Dose: 5,000 units Heparin Sodium (Porcine) (Heparin) 3,700 units IVP TTS [facility] Stop: 03/24/17 23:59 Last Admin: 03/07/17 11:20 Dose: 3,700 units Hydralazine HCl (Apresoline) 25 mg PO BID [facility] Last Admin: 03/08/17 10:49 Dose: 25 mg Hydromorphone HCl (Dilaudid) 0.5 mg IVP Q6H PRN PRN Reason: Pain, severe (8-10) Last Admin: 03/08/17 10:50 Dose: 0.5 mg Tigecycline 50 mg/ Sodium (Chloride) 100 mls @ 100 mls/hr IVPB Q12H [facility] Last Admin: 03/08/17 08:33 Dose: 100 mls/hr Fluconazole (Diflucan Iv 200 Mg/100 Ml Ns) 100 mls @ 100 mls/hr IVPB DAILY [facility] Last Admin: 03/08/17 11:03 Dose: 100 mls/hr Sodium Chloride 35 meq/Potassium Chloride 30 meq/Magnesium Sulfate 6 meq/ Calcium Gluconate 4.5 meq/Heparin Sodium (Porcine) 1,000 units/ Amino Acids 1, 035.9052 mls @ 63 mls/hr IV .[id number] [facility] Stop: 03/08/17 18:00 Last Admin: 03/08/17 11:03 Dose: 63 mls/hr Sodium Chloride 35 meq/Potassium Chloride 30 meq/Magnesium Sulfate 6 meq/ Calcium Gluconate 4.5 meq/Heparin Sodium (Porcine) 1,000 units/ Amino Acids 1, 035.9052 mls @ 63 mls/hr IV .[id number] [facility] Stop: 03/09/17 10:26 Sodium Chloride 35 meq/Potassium Chloride 30 meq/Magnesium Sulfate 6 meq/ Calcium Gluconate 4.5 meq/Heparin Sodium (Porcine) 1,000 units/ Amino Acids 1, 035.9052 mls @ 63 mls/hr IV .[id number] [facility] Stop: 03/09/17 17:59 Insulin Glargine (Lantus) 25 unit SC HS [facility] Last Admin: 03/07/17 21:03 Dose: 25 unit Insulin Human Regular (Novolin R) 0 unit SC ACHS [facility] PRN Reason: Protocol Last Admin: 03/08/17 08:33 Dose: 12 unit Latanoprost (Xalatan Opht) 0.02 ml OU HS [facility] Last Admin: 03/07/17 21:13 Dose: Not Given Losartan Potassium (Cozaar) 100 mg PO DAILY [facility] Last Admin: 03/08/17 10:49 Dose: 100 mg Pantoprazole Sodium (Protonix Inj) 40 mg IVP Q12H [facility] Last Admin: 03/08/17 04:26 Dose: 40 mg Rosuvastatin Calcium (Crestor) 10 mg PO HS [facility] Last Admin: 03/07/17 21:07 Dose: 10 mg Timolol Maleate (Timoptic 0.5% Oph Soln) 1 drop OU BID [facility] Last Admin: 03/08/17 10:51 Dose: 1 drop Vitamin B Complex/Vit C/Folic Acid (Nephro-Alonzo) 1 tab PO 0800 [facility] Last Admin: 03/08/17 08:33 Dose: 1 tab - Labs Labs: 03/07/17 10:03 03/07/17 10:03 PT 12.3 SECONDS (9.7-12.2) H 02/18/17 05:30 INR 1.1 02/18/17 05:30 APTT 30 SECONDS (21-34) 02/18/17 05:30 Attending/Attestation - Attestation I have personally seen and examined this patient.: Yes I have fully participated in the care of the patient.: Yes I have reviewed all pertinent clinical information, including history, physical exam and plan: Yes Notes (Text): 03/08/17 12:12 Agree with resident note and plan of care
--- NOTE | 2017-03-04 08:16 | CP.PCM.PN ---
Subjective - Date & Time of Evaluation Date of Evaluation: 03/04/17 Time of Evaluation: 07:00 - Subjective Subjective: Surgery Note for Dr. Broussard Patient seen and examined at bedside and in no acute distress. Patient still very lethargic but opens her eyes to verbal stimulus. ROS unobtainable. Objective - Vital Signs/Intake and Output Vital Signs (last 24 hours): Temp Pulse Resp BP Pulse Ox 98.2 F 75 20 112/56 L 96 03/04/17 07:25 03/04/17 07:25 03/04/17 07:25 03/04/17 07:25 03/04/17 07:25 - Medications Medications: Current Medications Acetaminophen (Tylenol 325mg Tab) 650 mg PO Q6 PRN PRN Reason: Pain, Mild (1-3) Last Admin: 03/03/17 11:02 Dose: 650 mg Amlodipine Besylate (Norvasc) 5 mg PO DAILY [facility] Last Admin: 03/03/17 14:33 Dose: 5 mg Ascorbic Acid (Vitamin C 500 Mg Tab) 500 mg PO DAILY [facility] Last Admin: 03/03/17 14:33 Dose: 500 mg Brimonidine Tartrate (Alphagan 0.2% Opht) 1 ml OU TID [facility] Last Admin: 03/03/17 19:10 Dose: 1 drop Collagenase (Santyl) 0 gm TOP DAILY [facility] Last Admin: 03/03/17 11:07 Dose: Not Given Collagenase (Santyl) 0 gm TOP DAILY [facility] Last Admin: 03/03/17 11:08 Dose: Not Given Dextrose (Dextrose 50% Inj) 0 ml IV STAT PRN; Protocol PRN Reason: Hyglycemia Protocol Dextrose (Glutose 15) 0 gm PO ONCE PRN; Protocol PRN Reason: Hypoglycemia Protocol Ergocalciferol (Drisdol 50,000 Intl Units Cap) 1 cap PO QWK [facility] Last Admin: 02/26/17 10:51 Dose: Not Given Furosemide (Lasix) 40 mg PO DAILY [facility] Last Admin: 03/03/17 14:34 Dose: 40 mg Glucagon (Glucagen Diagnostic Kit) 0 mg IM STAT PRN; Protocol PRN Reason: Hypoglycemia Protocol Heparin Sodium (Porcine) (Heparin) 3,700 units IVP TTS [facility] Last Admin: 03/03/17 12:07 Dose: 3,700 units Heparin Sodium (Porcine) (Heparin) 5,000 units SC Q8 [facility] Last Admin: 03/04/17 05:40 Dose: 5,000 units Hydralazine HCl (Apresoline) 25 mg PO BID [facility] Last Admin: 03/03/17 19:10 Dose: 25 mg Hydromorphone HCl (Dilaudid) 0.5 mg IVP Q6H PRN PRN Reason: Pain, severe (8-10) Last Admin: 03/03/17 11:39 Dose: 0.5 mg Tigecycline 50 mg/ Sodium (Chloride) 100 mls @ 100 mls/hr IVPB Q12H [facility] Last Admin: 03/03/17 22:07 Dose: 100 mls/hr Dextrose (Dextrose 5% In Water 1000 Ml) 1,000 mls @ 0 mls/hr IV .Q0M PRN; Protocol; Per Protocol PRN Reason: Hypoglycemia Protocol Metronidazole (Flagyl) 500 mg in 100 mls @ 100 mls/hr IVPB Q8 [facility] Last Admin: 03/04/17 05:40 Dose: 100 mls/hr Fluconazole (Diflucan Iv 200 Mg/100 Ml Ns) 100 mls @ 100 mls/hr IVPB DAILY [facility] Last Admin: 03/03/17 17:27 Dose: 100 mls/hr Sodium Chloride 35 meq/Potassium Chloride 30 meq/Magnesium Sulfate 6 meq/ Calcium Gluconate 4.5 meq/Heparin Sodium (Porcine) 1,000 units/ Multivitamins/ Vitamin C 10 ml/ Amino Acids 1,045.9052 mls @ 42 mls/hr IV .Q24H [facility] Stop: 03/04/17 17:59 Last Admin: 03/03/17 18:53 Dose: 42 mls/hr Insulin Glargine (Lantus) 15 unit SC HS [facility] Last Admin: 03/03/17 22:39 Dose: 15 u Insulin Human Regular (Novolin R) 0 unit SC ACHS [facility] PRN Reason: Protocol Last Admin: 03/03/17 22:40 Dose: 3 unit Latanoprost (Xalatan Opht) 0.02 ml OU HS [facility] Last Admin: 03/03/17 22:36 Dose: 0.02 ml Losartan Potassium (Cozaar) 100 mg PO DAILY [facility] Last Admin: 03/03/17 14:33 Dose: 100 mg Pantoprazole Sodium (Protonix Inj) 40 mg IVP Q12H [facility] Last Admin: 03/04/17 04:27 Dose: 40 mg Rosuvastatin Calcium (Crestor) 10 mg PO HS [facility] Last Admin: 03/03/17 22:07 Dose: Not Given Timolol Maleate (Timoptic 0.5% Ophth Soln) 1 drop OU BID [facility] Last Admin: 03/03/17 18:53 Dose: 1 drop Vancomycin HCl (Vancocin (Oral Or Rectal Use)) 125 mg PO QID [facility] Last Admin: 03/03/17 19:09 Dose: 125 mg Vitamin B Complex/Vit C/Folic Acid (Nephro-Alonzo) 1 tab PO 0800 [facility] Last Admin: 03/03/17 08:22 Dose: 1 tab - Labs Labs: 03/03/17 08:50 03/03/17 08:50 PT 12.3 SECONDS (9.7-12.2) H 02/18/17 05:30 INR 1.1 02/18/17 05:30 APTT 30 SECONDS (21-34) 02/18/17 05:30 - Constitutional Appears: Non-toxic, No Acute Distress - Head Exam Head Exam: ATRAUMATIC, NORMAL INSPECTION, NORMOCEPHALIC - Eye Exam Eye Exam: Normal appearance - ENT Exam ENT Exam: Mucous Membranes Moist - Respiratory Exam Respiratory Exam: NORMAL BREATHING PATTERN. absent: Clear to Ausculation Bilateral, Respiratory Distress - Cardiovascular Exam Cardiovascular Exam: REGULAR RHYTHM, +S1, +S2 - GI/Abdominal Exam GI & Abdominal Exam: Soft. absent: Tenderness - Extremities Exam Additional comments: Left foot ulcer, wound vac on - Neurological Exam Neurological Exam: Awake - Skin Additional comments: Left foot ulcer, wound vac on Assessment and Plan - Assessment and Plan (Free Text) Assessment: 71 y/o F POD#4 s/p LLE debridement and wound vac placement -monitor vitals -cont IV Abx per ID -cont medical management -change wound vac when white sponge comes in Further recs per Dr. Broussard
[2017-03-04] MEDS: (Novolin R) Insulin Human Regular 100 units/ml vial SC SCH ×4 (09:28→23:05)
[2017-03-04] MEDS: Multivitamin Vitamin B Complex (Nephro-Vite) Tab PO SCH (09:30)
[2017-03-04] MEDS: Fluconazole IV 200mg/100 ml NS 100 ML IVPB SCH (10:36)
[2017-03-04] MEDS: Brimonidine 0.2% Opth Sol (5ml) OU SCH ×3 (10:37→18:58)
[2017-03-04] MEDS: HYDROmorphone 0.5 mg/0.5 ml ISec IVP PRN (10:43)
[2017-03-04] MEDS: Vancomycin 125 MG/5 ML SOLN (ORAL/RECTAL) PO SCH ×4 (10:46→23:05)
--- NOTE | 2017-03-04 12:17 | CP.PCM.PCO ---
Physician Communication Note - Physician Communication Note Physician Communication Note: Family meeting at 10 am tomorrow
[2017-03-04] MEDS: Collagenase 250 Units/gm Ointment(30 gm) TOP SCH ×2 (13:27→14:39)
--- NOTE | 2017-03-04 14:22 | CP.PCM.CON ---
History of Present Illness - History of Present Illness History of Present Illness: Palliative consult Requested by Teri JULIAN Reason: Goals of care Patient is a 71 yo female admitted from home where she was found by her around 4 am with foam around her mouth grasping for air. Her sugar was 47. Patient was with AMS. Last time her saw her at her base line, alert and verbal , was at 5 pm, the day before. EMS gave patient D 50% bolus on the field with good result. Patient was found to have left foot non healing ulcer.Multiple vascular studies and surgical procedures were done during this hospitalization. 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 WBC 22.2. HbA1C abnormally high. The amputation was suggested as the only option to improve patient's condition. PMH: anemia, anxiety, CHF, depression, DM, HTN, ESRD with HD Soc. Hx: , lives at home with ,, has two sons involved in care Fam. Hx: Unobtainable from the patient. Review of Systems - Review of Systems All systems: reviewed and no additional remarkable complaints except Review of Systems: ROS obtained from nursing due to patient's AMS. Patient is uncomfortable due to pain and is lethargic at times. Past Patient History - Infectious Disease Hx of Infectious Diseases: None - Tetanus Immunizations Tetanus Immunization: Unknown - Past Medical History & Family History Past Medical History?: Yes - Past Social History Smoking Status: Never Smoked - CARDIAC Hx Hypercholesterolemia: Yes Hx Hypertension: Yes - PULMONARY Hx Respiratory Disorders: No - NEUROLOGICAL Hx Neurological Disorder: No - HEENT Hx HEENT Problems: Yes Hx Cataracts: Yes - RENAL Hx Chronic Kidney Disease: Yes - ENDOCRINE/METABOLIC Hx Diabetes Mellitus Type 2: Yes - HEMATOLOGICAL/ONCOLOGICAL Hx Anemia: Yes Hx Human Immunodeficiency Virus (HIV): No - INTEGUMENTARY Hx Dermatological Problems: No - MUSCULOSKELETAL/RHEUMATOLOGICAL Hx Musculoskeletal Disorders: Yes Hx Degenerative Joint Disease: Yes - GENITOURINARY/GYNECOLOGICAL Hx Genitourinary Disorders: Yes Hx Urinary Tract Infection: Yes - PSYCHIATRIC Hx Anxiety: Yes Hx Depression: Yes Hx Substance Use: No - SURGICAL HISTORY Hx Appendectomy: Yes - ANESTHESIA Hx Anesthesia: Yes Hx Anesthesia Reactions: No Hx Malignant Hyperthermia: No Meds Home Medications: Home Medication List Medication Instructions Recorded Confirmed Type Brimonidine 0.2% [Alphagan 0.2% 1 ml OU TID bottle 02/23/17 Rx Opht] Cefepime [Maxipime] 1 gm IVPB Q24H vial 02/23/17 Rx Epoetin Maxwell [Procrit] 10,000 unit IV TTS ml 02/23/17 Rx Ferric Sodium Gluconat Complex 125 mg IVPB TTS vial 02/23/17 Rx [Ferrlecit] Furosemide [Lasix] 40 mg PO DAILY tab 02/23/17 Rx Heparin 5,000 units SC Q8 vial 02/23/17 Rx Insulin Glargine, Recombina 30 unit SC HS unit 02/23/17 Rx [Lantus] Insulin Human Regular [Novolin R] 0 unit SC ACHS unit 02/23/17 Rx Latanoprost 0.005% Opht [Xalatan 0.02 ml OU HS bottle 02/23/17 Rx Opht] Linezolid [Zyvox] 600 mg PO BID tab 02/23/17 Rx Losartan [Cozaar] 100 mg PO DAILY tab 02/23/17 Rx Metronidazole [Flagyl] 500 mg PO Q8H 10 Days #30 tablet 02/23/17 Rx Rosuvastatin Calcium [Crestor] 10 mg PO HS tab 02/23/17 Rx Thiamine [Vitamin B1 Inj] 100 mg IV Q8H vial 02/23/17 Rx Timolol 0.5% Ophth [Timoptic 0.5% 1 drop OU BID bottle 02/23/17 Rx Ophth Soln] Vancomycin [Vancocin (ORAL OR 125 mg PO QID soln 02/23/17 Rx RECTAL USE)] amLODIPine [Norvasc] 5 mg PO DAILY tab 02/23/17 Rx hydrALAZINE [Apresoline] 25 mg PO BID tab 02/23/17 Rx Allergies/Adverse Reactions: Allergies Allergy/AdvReac Type Severity Reaction Status Date / Time No Known Allergies Allergy Verified 12/20/16 14:34 - Medications Medications: Current Medications Acetaminophen (Tylenol 325mg Tab) 650 mg PO Q6 PRN PRN Reason: Pain, Mild (1-3) Last Admin: 03/03/17 11:02 Dose: 650 mg Amlodipine Besylate (Norvasc) 5 mg PO DAILY [facility] Last Admin: 03/04/17 09:31 Dose: 5 mg Ascorbic Acid (Vitamin C 500 Mg Tab) 500 mg PO DAILY [facility] Last Admin: 03/04/17 09:31 Dose: 500 mg Brimonidine Tartrate (Alphagan 0.2% Opht) 1 ml OU TID [facility] Last Admin: 03/03/17 19:10 Dose: 1 drop Collagenase (Santyl) 0 gm TOP DAILY [facility] Last Admin: 03/03/17 11:07 Dose: Not Given Collagenase (Santyl) 0 gm TOP DAILY [facility] Last Admin: 03/04/17 13:27 Dose: Not Given Dextrose (Dextrose 50% Inj) 0 ml IV STAT PRN; Protocol PRN Reason: Hyglycemia Protocol Dextrose (Glutose 15) 0 gm PO ONCE PRN; Protocol PRN Reason: Hypoglycemia Protocol Ergocalciferol (Drisdol 50,000 Intl Units Cap) 1 cap PO QWK [facility] Last Admin: 02/26/17 10:51 Dose: Not Given Furosemide (Lasix) 40 mg PO DAILY [facility] Last Admin: 03/04/17 09:31 Dose: 40 mg Glucagon (Glucagen Diagnostic Kit) 0 mg IM STAT PRN; Protocol PRN Reason: Hypoglycemia Protocol Heparin Sodium (Porcine) (Heparin) 3,700 units IVP TTS [facility] Last Admin: 03/03/17 12:07 Dose: 3,700 units Heparin Sodium (Porcine) (Heparin) 5,000 units SC Q8 [facility] Last Admin: 03/04/17 13:23 Dose: 5,000 units Hydralazine HCl (Apresoline) 25 mg PO BID [facility] Last Admin: 03/04/17 10:38 Dose: Not Given Hydromorphone HCl (Dilaudid) 0.5 mg IVP Q6H PRN PRN Reason: Pain, severe (8-10) Last Admin: 03/04/17 10:43 Dose: 0.5 mg Tigecycline 50 mg/ Sodium (Chloride) 100 mls @ 100 mls/hr IVPB Q12H [facility] Last Admin: 03/04/17 09:28 Dose: 100 mls/hr Dextrose (Dextrose 5% In Water 1000 Ml) 1,000 mls @ 0 mls/hr IV .Q0M PRN; Protocol; Per Protocol PRN Reason: Hypoglycemia Protocol Metronidazole (Flagyl) 500 mg in 100 mls @ 100 mls/hr IVPB Q8 [facility] Last Admin: 03/04/17 13:23 Dose: 100 mls/hr Fluconazole (Diflucan Iv 200 Mg/100 Ml Ns) 100 mls @ 100 mls/hr IVPB DAILY [facility] Last Admin: 03/04/17 10:36 Dose: 100 mls/hr Sodium Chloride 35 meq/Potassium Chloride 30 meq/Magnesium Sulfate 6 meq/ Calcium Gluconate 4.5 meq/Heparin Sodium (Porcine) 1,000 units/ Multivitamins/ Vitamin C 10 ml/ Amino Acids 1,045.9052 mls @ 42 mls/hr IV .Q24H [facility] Stop: 03/04/17 17:59 Last Admin: 03/03/17 18:53 Dose: 42 mls/hr Sodium Chloride 35 meq/Potassium Chloride 30 meq/Magnesium Sulfate 6 meq/ Calcium Gluconate 4.5 meq/Heparin Sodium (Porcine) 1,000 units/ Multivitamins/ Vitamin C 10 ml/ Amino Acids 1,045.9052 mls @ 42 mls/hr IV .Q24H [facility] Stop: 03/05/17 17:59 Insulin Glargine (Lantus) 15 unit SC [facility] Last Admin: 03/03/17 22:39 Dose: 15 u Insulin Human Regular (Novolin R) 0 unit SC [facility] PRN Reason: Protocol Last Admin: 03/04/17 12:21 Dose: Not Given Latanoprost (Xalatan Opht) 0.02 ml OU [facility] Last Admin: 03/03/17 22:36 Dose: 0.02 ml Losartan Potassium (Cozaar) 100 mg PO DAILY [facility] Last Admin: 03/04/17 09:31 Dose: 100 mg Pantoprazole Sodium (Protonix Inj) 40 mg IVP Q12H [facility] Last Admin: 03/04/17 04:27 Dose: 40 mg Rosuvastatin Calcium (Crestor) 10 mg PO HS [facility] Last Admin: 03/03/17 22:07 Dose: Not Given Timolol Maleate (Timoptic 0.5% Oph Soln) 1 drop OU BID [facility] Last Admin: 03/03/17 18:53 Dose: 1 drop Vancomycin HCl (Vancocin (Oral Or Rectal Use)) 125 mg PO QID [facility] Last Admin: 03/04/17 13:23 Dose: 125 mg Vitamin B Complex/Vit C/Folic Acid (Nephro-Alonzo) 1 tab PO 0800 [facility] Last Admin: 03/04/17 09:30 Dose: 1 tab Physical Exam - Constitutional Appears: Chronically Ill - Head Exam Head Exam: ATRAUMATIC, NORMAL INSPECTION, NORMOCEPHALIC - Eye Exam Eye Exam: EOMI, Normal appearance, PERRL Pupil Exam: NORMAL ACCOMODATION, PERRL - ENT Exam ENT Exam: Mucous Membranes Moist, Normal Exam - Neck Exam Neck exam: Positive for: Normal Inspection - Respiratory Exam Respiratory Exam: Clear to Auscultation Bilateral, NORMAL BREATHING PATTERN - Cardiovascular Exam Cardiovascular Exam: REGULAR RHYTHM - GI/Abdominal Exam GI & Abdominal Exam: Normal Bowel Sounds - Rectal Exam Rectal Exam: Deferred - Exam Exam: NORMAL INSPECTION - Extremities Exam Additional comments: left foot with non healing ulcer - Back Exam Back exam: NORMAL INSPECTION - Neurological Exam Neurological exam: Alert, Altered - Psychiatric Exam Psychiatric exam: Anxious - Skin Skin Exam: Normal Color, Warm Results - Vital Signs Recent Vital Signs: Last Vital Signs Temp 98.2 F 03/04/17 07:25 Pulse 75 03/04/17 07:25 Resp 20 03/04/17 07:25 BP 112/67 03/04/17 09:31 Pulse Ox 96 03/04/17 07:25 - Labs Result Diagrams: 03/03/17 08:50 03/03/17 08:50 Labs: Laboratory Results - last 24 hr 03/03/17 03/03/17 03/04/17 15:53 21:26 01:28 POC Glucose (mg/dL) 248 H 377 H 293 H 03/04/17 03/04/17 06:24 11:06 POC Glucose (mg/dL) 192 H 75 Assessment & Plan - Assessment and Plan (Free Text) Assessment: Palliative consult Code status Full Code, no Advance Directive/ Living Will on chart. PPS 10% I reviewed medical charts., all diagnostic studies, and examined patient in the bed. Interviewing patient was not possible due to patient's AMS. Patient is alert, altered, with eyes open, confused and unable to fallow commends. Patient appers uncomfortable and tries to put her leg over the fence of the bed.Left leg with dressing on, toes are discolored and large soft boot is on. Patient reacts in pain when the left leg repositioned. Pain is managed by Dilaudid 0.5 mg Q 6 hr PRN. BP 112/56, afebrile. WBC 22.2, Hb 10.1, Na 125. The rest of the organ systems reviewed and are negative acute findings. I spoke over the phone with patient's son Nicholas and we agreed upon family meting for tomorrow at 10 am . His brother and father will come as well. I discussed patient's clinical presentation with Doctor Teri who informed me that patient' s has refused suggested amputation. That will be the topic for tomorow' s meeting discussion. At present, patient is on Tygacil IV, bacitrin Iv and Vanco PO Impression * This is a chronically ill lady with new onset of AMS due to bacteremia * Acute pain due to non healing left foot wound * Patient is unable to advocate for herself due to AMS * Patient's needs support in decision making process Suggestion * promote comfort * Pain management * Family meeting tomorrow at 10 am Thank you very much for consulting Palliative Care
--- NOTE | 2017-03-04 15:06 | CP.PCM.PN ---
Subjective - Date & Time of Evaluation Date of Evaluation: 03/04/17 Time of Evaluation: 15:03 - Subjective Subjective: CC: Follow up for dysphagia, Esophagitis and duodenal ulcers Patient more alert and eable to eat and swallow small amounts per and family. On Protonix IV 40 mg BID. I stopped Nystatin as there is no Mervat evident on endoscopy (I never ordered Diflucan), but Diflucan is ordered by ID specialist. No GI Bleeding Very frail and severely ill, primary with vascular issues/infections. Objective - Vital Signs/Intake and Output Vital Signs (last 24 hours): Temp Pulse Resp BP Pulse Ox 98.2 F 75 20 112/67 96 03/04/17 07:25 03/04/17 07:25 03/04/17 07:25 03/04/17 09:31 03/04/17 07:25 - Medications Medications: Current Medications Acetaminophen (Tylenol 325mg Tab) 650 mg PO Q6 PRN PRN Reason: Pain, Mild (1-3) Last Admin: 03/03/17 11:02 Dose: 650 mg Amlodipine Besylate (Norvasc) 5 mg PO DAILY [facility] Last Admin: 03/04/17 09:31 Dose: 5 mg Ascorbic Acid (Vitamin C 500 Mg Tab) 500 mg PO DAILY [facility] Last Admin: 03/04/17 09:31 Dose: 500 mg Brimonidine Tartrate (Alphagan 0.2% Opht) 1 ml OU TID [facility] Last Admin: 03/04/17 14:37 Dose: 1 drop Collagenase (Santyl) 0 gm TOP DAILY [facility] Last Admin: 03/04/17 14:39 Dose: Not Given Collagenase (Santyl) 0 gm TOP DAILY [facility] Last Admin: 03/04/17 13:27 Dose: Not Given Dextrose (Dextrose 50% Inj) 0 ml IV STAT PRN; Protocol PRN Reason: Hyglycemia Protocol Dextrose (Glutose 15) 0 gm PO ONCE PRN; Protocol PRN Reason: Hypoglycemia Protocol Ergocalciferol (Drisdol 50,000 Intl Units Cap) 1 cap PO QWK [facility] Last Admin: 02/26/17 10:51 Dose: Not Given Furosemide (Lasix) 40 mg PO DAILY [facility] Last Admin: 03/04/17 09:31 Dose: 40 mg Glucagon (Glucagen Diagnostic Kit) 0 mg IM STAT PRN; Protocol PRN Reason: Hypoglycemia Protocol Heparin Sodium (Porcine) (Heparin) 3,700 units IVP TTS [facility] Last Admin: 03/03/17 12:07 Dose: 3,700 units Heparin Sodium (Porcine) (Heparin) 5,000 units SC Q8 [facility] Last Admin: 03/04/17 13:23 Dose: 5,000 units Hydralazine HCl (Apresoline) 25 mg PO BID [facility] Last Admin: 03/04/17 10:38 Dose: Not Given Hydromorphone HCl (Dilaudid) 0.5 mg IVP Q6H PRN PRN Reason: Pain, severe (8-10) Last Admin: 03/04/17 10:43 Dose: 0.5 mg Tigecycline 50 mg/ Sodium (Chloride) 100 mls @ 100 mls/hr IVPB Q12H [facility] Last Admin: 03/04/17 09:28 Dose: 100 mls/hr Dextrose (Dextrose 5% In Water 1000 Ml) 1,000 mls @ 0 mls/hr IV .Q0M PRN; Protocol; Per Protocol PRN Reason: Hypoglycemia Protocol Metronidazole (Flagyl) 500 mg in 100 mls @ 100 mls/hr IVPB Q8 [facility] Last Admin: 03/04/17 13:23 Dose: 100 mls/hr Fluconazole (Diflucan Iv 200 Mg/100 Ml Ns) 100 mls @ 100 mls/hr IVPB DAILY [facility] Last Admin: 03/04/17 10:36 Dose: 100 mls/hr Sodium Chloride 35 meq/Potassium Chloride 30 meq/Magnesium Sulfate 6 meq/ Calcium Gluconate 4.5 meq/Heparin Sodium (Porcine) 1,000 units/ Multivitamins/ Vitamin C 10 ml/ Amino Acids 1,045.9052 mls @ 42 mls/hr IV .Q24H [facility] Stop: 03/04/17 17:59 Last Admin: 03/03/17 18:53 Dose: 42 mls/hr Sodium Chloride 35 meq/Potassium Chloride 30 meq/Magnesium Sulfate 6 meq/ Calcium Gluconate 4.5 meq/Heparin Sodium (Porcine) 1,000 units/ Multivitamins/ Vitamin C 10 ml/ Amino Acids 1,045.9052 mls @ 42 mls/hr IV .Q24H [facility] Stop: 03/05/17 17:59 Insulin Glargine (Lantus) 15 unit SC [facility] Last Admin: 03/03/17 22:39 Dose: 15 u Insulin Human Regular (Novolin R) 0 unit SC ACHS [facility] PRN Reason: Protocol Last Admin: 03/04/17 12:21 Dose: Not Given Latanoprost (Xalatan Opht) 0.02 ml OU HS [facility] Last Admin: 03/03/17 22:36 Dose: 0.02 ml Losartan Potassium (Cozaar) 100 mg PO DAILY [facility] Last Admin: 03/04/17 09:31 Dose: 100 mg Pantoprazole Sodium (Protonix Inj) 40 mg IVP Q12H [facility] Last Admin: 03/04/17 04:27 Dose: 40 mg Rosuvastatin Calcium (Crestor) 10 mg PO HS [facility] Last Admin: 03/03/17 22:07 Dose: Not Given Timolol Maleate (Timoptic 0.5% Oph Soln) 1 drop OU BID [facility] Last Admin: 03/04/17 10:39 Dose: 1 drop Vancomycin HCl (Vancocin (Oral Or Rectal Use)) 125 mg PO QID [facility] Last Admin: 03/04/17 13:23 Dose: 125 mg Vitamin B Complex/Vit C/Folic Acid (Nephro-Alonzo) 1 tab PO 0800 [facility] Last Admin: 03/04/17 09:30 Dose: 1 tab - Labs Labs: 03/03/17 08:50 03/03/17 08:50 PT 12.3 SECONDS (9.7-12.2) H 02/18/17 05:30 INR 1.1 02/18/17 05:30 APTT 30 SECONDS (21-34) 02/18/17 05:30 - Constitutional Appears: Chronically Ill - Head Exam Head Exam: NORMOCEPHALIC - Respiratory Exam Respiratory Exam: NORMAL BREATHING PATTERN - Cardiovascular Exam Cardiovascular Exam: REGULAR RHYTHM - GI/Abdominal Exam GI & Abdominal Exam: Soft. absent: Distended, Tenderness Assessment and Plan (1) Clostridium difficile colitis Assessment & Plan: Clinically improving Vanco/Flagyl combination Marked leukocytosis likely from a different infectious cause Status: Acute (2) Change in mental status Status: Acute (3) End stage renal disease on dialysis Status: Acute (4) Heel ulcer Status: Acute (5) IDDM (insulin dependent diabetes mellitus) Status: Chronic (6) Dysphagia Assessment & Plan: EGD showed severe duodenal ulceration and peptic disease. PO intake starting to slowly improve. rec: Continue Protonix as ordered. Consider NG tube if needed for nutrition. Status: Acute
[2017-03-04 17:50] LABS: LDH PLEURAL FLUID 50 U/L
[2017-03-04] MEDS ORDERED: TPN#4 IV SCH (18:00)
[2017-03-04] MEDS: Latanoprost 2.5 ml Opht Soln OU SCH (23:05)
[2017-03-04] MEDS: (Lantus) Insulin Glargine, Recombinant SC SCH (23:05)
--- NOTE | 2017-03-04 23:47 | CP.PCM.PN ---
Subjective - Date & Time of Evaluation Date of Evaluation: 03/04/17 Time of Evaluation: 13:00 - Subjective Subjective: SEEN ON RENAL F/U ALET .. RESPONSIVE .. ABLE TO SPEAKE AGAIN TODAY D/W AND FAMILY MEMBERS ON BED SIDE ALL PREVIOUS EMR REVIEWED Objective - Vital Signs/Intake and Output Vital Signs (last 24 hours): Temp Pulse Resp BP Pulse Ox 98.1 F 81 20 117/63 96 03/04/17 15:37 03/04/17 15:37 03/04/17 15:37 03/04/17 15:37 03/04/17 15:37 Intake and Output: 03/04/17 03/05/17 18:59 06:59 Intake Total 400 Balance 400 - Medications Medications: Current Medications Acetaminophen (Tylenol 325mg Tab) 650 mg PO Q6 PRN PRN Reason: Pain, Mild (1-3) Last Admin: 03/03/17 11:02 Dose: 650 mg Amlodipine Besylate (Norvasc) 5 mg PO DAILY [facility] Last Admin: 03/04/17 09:31 Dose: 5 mg Ascorbic Acid (Vitamin C 500 Mg Tab) 500 mg PO DAILY [facility] Last Admin: 03/04/17 09:31 Dose: 500 mg Brimonidine Tartrate (Alphagan 0.2% Opht) 1 ml OU TID [facility] Last Admin: 03/04/17 18:58 Dose: 1 drop Collagenase (Santyl) 0 gm TOP DAILY [facility] Last Admin: 03/04/17 14:39 Dose: Not Given Collagenase (Santyl) 0 gm TOP DAILY [facility] Last Admin: 03/04/17 13:27 Dose: Not Given Dextrose (Dextrose 50% Inj) 0 ml IV STAT PRN; Protocol PRN Reason: Hyglycemia Protocol Dextrose (Glutose 15) 0 gm PO ONCE PRN; Protocol PRN Reason: Hypoglycemia Protocol Ergocalciferol (Drisdol 50,000 Intl Units Cap) 1 cap PO QWK [facility] Last Admin: 02/26/17 10:51 Dose: Not Given Furosemide (Lasix) 40 mg PO DAILY [facility] Last Admin: 03/04/17 09:31 Dose: 40 mg Glucagon (Glucagen Diagnostic Kit) 0 mg IM STAT PRN; Protocol PRN Reason: Hypoglycemia Protocol Heparin Sodium (Porcine) (Heparin) 3,700 units IVP TTS [facility] Last Admin: 03/03/17 12:07 Dose: 3,700 units Heparin Sodium (Porcine) (Heparin) 5,000 units SC Q8 [facility] Last Admin: 03/04/17 23:04 Dose: 5,000 units Hydralazine HCl (Apresoline) 25 mg PO BID [facility] Last Admin: 03/04/17 18:52 Dose: 25 mg Hydromorphone HCl (Dilaudid) 0.5 mg IVP Q6H PRN PRN Reason: Pain, severe (8-10) Last Admin: 03/04/17 10:43 Dose: 0.5 mg Tigecycline 50 mg/ Sodium (Chloride) 100 mls @ 100 mls/hr IVPB Q12H [facility] Last Admin: 03/04/17 21:00 Dose: 100 mls/hr Dextrose (Dextrose 5% In Water 1000 Ml) 1,000 mls @ 0 mls/hr IV .Q0M PRN; Protocol; Per Protocol PRN Reason: Hypoglycemia Protocol Metronidazole (Flagyl) 500 mg in 100 mls @ 100 mls/hr IVPB Q8 [facility] Last Admin: 03/04/17 23:05 Dose: 100 mls/hr Fluconazole (Diflucan Iv 200 Mg/100 Ml Ns) 100 mls @ 100 mls/hr IVPB DAILY [facility] Last Admin: 03/04/17 10:36 Dose: 100 mls/hr Sodium Chloride 35 meq/Potassium Chloride 30 meq/Magnesium Sulfate 6 meq/ Calcium Gluconate 4.5 meq/Heparin Sodium (Porcine) 1,000 units/ Multivitamins/ Vitamin C 10 ml/ Amino Acids 1,045.9052 mls @ 42 mls/hr IV .Q24H [facility] Stop: 03/05/17 17:59 Last Admin: 03/04/17 18:56 Dose: 42 mls/hr Insulin Glargine (Lantus) 15 unit SC HS [facility] Last Admin: 03/04/17 23:05 Dose: 15 u Insulin Human Regular (Novolin R) 0 unit SC ACHS [facility] PRN Reason: Protocol Last Admin: 03/04/17 23:05 Dose: 3 unit Latanoprost (Xalatan Opht) 0.02 ml OU HS [facility] Last Admin: 03/04/17 23:05 Dose: 0.02 ml Losartan Potassium (Cozaar) 100 mg PO DAILY [facility] Last Admin: 03/04/17 09:31 Dose: 100 mg Pantoprazole Sodium (Protonix Inj) 40 mg IVP Q12H [facility] Last Admin: 03/04/17 16:20 Dose: 40 mg Rosuvastatin Calcium (Crestor) 10 mg PO HS [facility] Last Admin: 03/04/17 23:04 Dose: 10 mg Timolol Maleate (Timoptic 0.5% Ophth Soln) 1 drop OU BID [facility] Last Admin: 03/04/17 18:58 Dose: 1 drop Vancomycin HCl (Vancocin (Oral Or Rectal Use)) 125 mg PO QID [facility] Last Admin: 03/04/17 23:05 Dose: 125 mg Vitamin B Complex/Vit C/Folic Acid (Nephro-Alonzo) 1 tab PO 0800 [facility] Last Admin: 03/04/17 09:30 Dose: 1 tab - Labs Labs: 03/03/17 08:50 03/03/17 08:50 PT 12.3 SECONDS (9.7-12.2) H 02/18/17 05:30 INR 1.1 02/18/17 05:30 APTT 30 SECONDS (21-34) 02/18/17 05:30 Assessment and Plan - Assessment and Plan (Free Text) Assessment: ESRD ON HD T T S ANEMIA OF CKD .. H/H STABLE MULTIPLE MEDICAL PROBLEMS C/O SUPPORTIVE CARE C/O PRESENT MANAGEMENT
[2017-03-05] MEDS: metroNIDAZOLE IV 500 mg/100 ml 500 MG/100 ML BAG IVPB SCH ×3 (05:05→22:17)
[2017-03-05] MEDS: (Novolin R) Insulin Human Regular 100 units/ml vial SC SCH ×4 (07:30→22:18)
[2017-03-05] MEDS: Collagenase 250 Units/gm Ointment(30 gm) TOP SCH ×2 (10:00)
[2017-03-05] MEDS ORDERED: TPN # 6 IV SCH (10:30)
--- NOTE | 2017-03-05 10:32 | CP.PCM.PN ---
Subjective - Date & Time of Evaluation Date of Evaluation: 03/05/17 Time of Evaluation: 10:00 - Subjective Subjective: Patient in HD. Remains confused Objective - Vital Signs/Intake and Output Vital Signs (last 24 hours): Temp Pulse Resp BP Pulse Ox 98.5 F 72 20 161/44 H 98 03/05/17 07:00 03/05/17 07:00 03/05/17 07:00 03/05/17 07:00 03/05/17 07:00 Intake and Output: 03/05/17 03/05/17 06:59 18:59 Intake Total 452 Balance 452 - Medications Medications: Current Medications Acetaminophen (Tylenol 325mg Tab) 650 mg PO Q6 PRN PRN Reason: Pain, Mild (1-3) Last Admin: 03/03/17 11:02 Dose: 650 mg Amlodipine Besylate (Norvasc) 5 mg PO DAILY [facility] Last Admin: 03/04/17 09:31 Dose: 5 mg Ascorbic Acid (Vitamin C 500 Mg Tab) 500 mg PO DAILY [facility] Last Admin: 03/04/17 09:31 Dose: 500 mg Brimonidine Tartrate (Alphagan 0.2% Opht) 1 ml OU TID [facility] Last Admin: 03/04/17 18:58 Dose: 1 drop Collagenase (Santyl) 0 gm TOP DAILY [facility] Last Admin: 03/04/17 14:39 Dose: Not Given Collagenase (Santyl) 0 gm TOP DAILY [facility] Last Admin: 03/04/17 13:27 Dose: Not Given Dextrose (Dextrose 50% Inj) 0 ml IV STAT PRN; Protocol PRN Reason: Hyglycemia Protocol Dextrose (Glutose 15) 0 gm PO ONCE PRN; Protocol PRN Reason: Hypoglycemia Protocol Ergocalciferol (Drisdol 50,000 Intl Units Cap) 1 cap PO QWK [facility] Last Admin: 02/26/17 10:51 Dose: Not Given Furosemide (Lasix) 40 mg PO DAILY [facility] Last Admin: 03/04/17 09:31 Dose: 40 mg Glucagon (Glucagen Diagnostic Kit) 0 mg IM STAT PRN; Protocol PRN Reason: Hypoglycemia Protocol Heparin Sodium (Porcine) (Heparin) 3,700 units IVP TTS [facility] Last Admin: 03/03/17 12:07 Dose: 3,700 units Heparin Sodium (Porcine) (Heparin) 5,000 units SC Q8 [facility] Last Admin: 03/05/17 05:05 Dose: 5,000 units Hydralazine HCl (Apresoline) 25 mg PO BID [facility] Last Admin: 03/04/17 18:52 Dose: 25 mg Hydromorphone HCl (Dilaudid) 0.5 mg IVP Q6H PRN PRN Reason: Pain, severe (8-10) Last Admin: 03/04/17 10:43 Dose: 0.5 mg Tigecycline 50 mg/ Sodium (Chloride) 100 mls @ 100 mls/hr IVPB Q12H [facility] Last Admin: 03/04/17 21:00 Dose: 100 mls/hr Metronidazole (Flagyl) 500 mg in 100 mls @ 100 mls/hr IVPB Q8 [facility] Last Admin: 03/05/17 05:05 Dose: 100 mls/hr Fluconazole (Diflucan Iv 200 Mg/100 Ml Ns) 100 mls @ 100 mls/hr IVPB DAILY [facility] Last Admin: 03/04/17 10:36 Dose: 100 mls/hr Sodium Chloride 35 meq/Potassium Chloride 30 meq/Magnesium Sulfate 6 meq/ Calcium Gluconate 4.5 meq/Heparin Sodium (Porcine) 1,000 units/ Multivitamins/ Vitamin C 10 ml/ Amino Acids 1,045.9052 mls @ 42 mls/hr IV .Q24H [facility] Stop: 03/05/17 17:59 Last Admin: 03/04/17 18:56 Dose: 42 mls/hr Insulin Glargine (Lantus) 15 unit SC HS [facility] Last Admin: 03/04/17 23:05 Dose: 15 u Insulin Human Regular (Novolin R) 0 unit SC ACHS [facility] PRN Reason: Protocol Last Admin: 03/04/17 23:05 Dose: 3 unit Latanoprost (Xalatan Opht) 0.02 ml OU HS [facility] Last Admin: 03/04/17 23:05 Dose: 0.02 ml Losartan Potassium (Cozaar) 100 mg PO DAILY [facility] Last Admin: 03/04/17 09:31 Dose: 100 mg Pantoprazole Sodium (Protonix Inj) 40 mg IVP Q12H [facility] Last Admin: 03/05/17 05:04 Dose: 40 mg Rosuvastatin Calcium (Crestor) 10 mg PO HS [facility] Last Admin: 03/04/17 23:04 Dose: 10 mg Timolol Maleate (Timoptic 0.5% Ophth Soln) 1 drop OU BID [facility] Last Admin: 03/04/17 18:58 Dose: 1 drop Vancomycin HCl (Vancocin (Oral Or Rectal Use)) 125 mg PO QID [facility] Last Admin: 03/04/17 23:05 Dose: 125 mg Vitamin B Complex/Vit C/Folic Acid (Nephro-Alonzo) 1 tab PO 0800 [facility] Last Admin: 03/04/17 09:30 Dose: 1 tab - Labs Labs: 03/03/17 08:50 03/03/17 08:50 PT 12.3 SECONDS (9.7-12.2) H 02/18/17 05:30 INR 1.1 02/18/17 05:30 APTT 30 SECONDS (21-34) 02/18/17 05:30 - Constitutional Appears: Chronically Ill - Head Exam Head Exam: ATRAUMATIC, NORMAL INSPECTION, NORMOCEPHALIC - Eye Exam Eye Exam: EOMI, Normal appearance, PERRL Pupil Exam: NORMAL ACCOMODATION, PERRL - ENT Exam ENT Exam: Mucous Membranes Moist, Normal Exam - Neck Exam Neck Exam: Full ROM, Normal Inspection - Respiratory Exam Respiratory Exam: Decreased Breath Sounds, NORMAL BREATHING PATTERN - Cardiovascular Exam Cardiovascular Exam: REGULAR RHYTHM - GI/Abdominal Exam GI & Abdominal Exam: Diminished Bowel Sounds - Rectal Exam Rectal Exam: Deferred - Exam Exam: NORMAL INSPECTION - Extremities Exam Additional comments: Left foot with dressing, - Back Exam Back Exam: NORMAL INSPECTION - Neurological Exam Neurological Exam: Alert, Altered Neuro motor strength exam: Left Upper Extremity: 2/1, Right Upper Extremity: 2/1 , Left Lower Extremity: 0, Right Lower Extremity: 2/1 - Psychiatric Exam Psychiatric exam: Flat Affect - Skin Skin Exam: Dry, Normal Color, Warm Assessment and Plan - Assessment and Plan (Free Text) Assessment: Patient seen in HD. Remains confused and unable to fallow commends or answer the questions. left leg still very painful upon mobility or touch. Blood and left leg, wound cultures, came back positive. BP 161/72, HR 72, afebrile. Tygacil IV, Bicitracin IV and Vanco PO on board. Family meeting scheduled this morning, cancelled by the family. I spoke over the phone with son Nicholas . Nicholas was not sure what time today they would be able to come. I briefly discussed his mother's clinical presentation and asked about his and his father's feelings about amputation. Nicholas said that hes father would not want the amputation because patient her self would not want it either. I offered more information about severity of wound infection, its risks including the . Nicholas clearly said that family had no understanding of how sever the infection was and that suggested amputation was the last ption Medical team could have offered. He said he was to talk to his brother and father about it and come later today, to talk to Doctor Bobo. I gave him my contact information as well. Impression * This is acutely ill woman with need for left leg amputation , what is source of bacteremia * Patient is confused and unable to advocate for herself * Family demonstrates poor insight of severity of patient's condition Suggestion * Supportive care * Assist family in reconsidering the option of amputation . Family needs support and more education * Pain management
--- NOTE | 2017-03-05 10:48 | CP.PCM.PCO ---
Physician Communication Note - Physician Communication Note Physician Communication Note: Family cancelled meeting for this morning
[2017-03-05] MEDS: HYDROmorphone 0.5 mg/0.5 ml ISec IVP PRN ×2 (11:00→18:19)
[2017-03-05 11:11] LABS: BASO # 0.1 K/uL (0.0-0.2); BASO % 0.7 % (0.0-2.0); EOS # 0.2 K/uL (0.0-0.7); HEMATOCRIT 29.6 % (34.0-47.0); LYMPH # 1.4 K/uL (1.0-4.3); MEAN CELL VOLUME 92.9 fL (81.0-99.0); MEAN CORPUSCULAR HEMOGLOBIN 29.1 pg (27.0-31.0); MEAN CORPUSCULAR HGB CONC 31.3 g/dL (33.0-37.0); MEAN PLATELET VOLUME 9.9 fL (7.2-11.7); MONO # 1.5 K/uL (0.0-0.8); MONO % 7.3 % (0.0-10.0); PLATELET COUNT 246 K/uL (130-400); RED CELL DISTRIBUTION WIDTH 22.2 % (11.5-14.5); WHITE BLOOD COUNT 20.3 K/uL (4.8-10.8)
[2017-03-05 11:19] LABS: POTASSIUM 3.9 mmol/L (3.6-5.2)
[2017-03-05 11:21] LABS: BILIRUBIN,TOTAL 0.5 mg/dL (0.2-1.3)
[2017-03-05 11:22] LABS: ALB/GLOB RATIO 0.8 (1.0-2.1); CALCIUM 7.1 mg/dl (8.6-10.4); MAGNESIUM 1.7 mg/dL (1.6-2.3); PHOSPHOROUS 3.7 mg/dL (2.5-4.5); TOTAL PROTEIN 4.4 g/dL (6.3-8.3)
[2017-03-05 11:50] LABS: EOSINOPHIL 1 % (0-4); NEUTROPHIL 84 % (50-75); TOTAL CELLS COUNTED 100
--- NOTE | 2017-03-05 12:12 | CP.PCM.PN ---
Subjective - Date & Time of Evaluation Date of Evaluation: 03/05/17 Time of Evaluation: 12:12 - Subjective Subjective: General Surgery Note for Dr. Broussard Patient seen and examined at bedside. No acute event overnight. Patient going for dialysis today. Patient responds to verbal commands. Objective - Vital Signs/Intake and Output Vital Signs (last 24 hours): Temp Pulse Resp BP Pulse Ox 98.2 F 72 17 171/69 H 98 03/05/17 09:45 03/05/17 11:05 03/05/17 11:05 03/05/17 11:05 03/05/17 11:05 Intake and Output: 03/05/17 03/05/17 06:59 18:59 Intake Total 452 Balance 452 - Medications Medications: Current Medications Acetaminophen (Tylenol 325mg Tab) 650 mg PO Q6 PRN PRN Reason: Pain, Mild (1-3) Last Admin: 03/03/17 11:02 Dose: 650 mg Amlodipine Besylate (Norvasc) 5 mg PO DAILY [facility] Last Admin: 03/04/17 09:31 Dose: 5 mg Ascorbic Acid (Vitamin C 500 Mg Tab) 500 mg PO DAILY [facility] Last Admin: 03/04/17 09:31 Dose: 500 mg Brimonidine Tartrate (Alphagan 0.2% Opht) 1 ml OU TID [facility] Last Admin: 03/04/17 18:58 Dose: 1 drop Collagenase (Santyl) 0 gm TOP DAILY [facility] Last Admin: 03/04/17 14:39 Dose: Not Given Collagenase (Santyl) 0 gm TOP DAILY [facility] Last Admin: 03/04/17 13:27 Dose: Not Given Dextrose (Dextrose 50% Inj) 0 ml IV STAT PRN; Protocol PRN Reason: Hyglycemia Protocol Dextrose (Glutose 15) 0 gm PO ONCE PRN; Protocol PRN Reason: Hypoglycemia Protocol Ergocalciferol (Drisdol 50,000 Intl Units Cap) 1 cap PO QWK [facility] Last Admin: 02/26/17 10:51 Dose: Not Given Furosemide (Lasix) 40 mg PO DAILY [facility] Last Admin: 03/04/17 09:31 Dose: 40 mg Glucagon (Glucagen Diagnostic Kit) 0 mg IM STAT PRN; Protocol PRN Reason: Hypoglycemia Protocol Heparin Sodium (Porcine) (Heparin) 3,700 units IVP TTS [facility] Last Admin: 03/03/17 12:07 Dose: 3,700 units Heparin Sodium (Porcine) (Heparin) 5,000 units SC Q8 [facility] Last Admin: 03/05/17 05:05 Dose: 5,000 units Hydralazine HCl (Apresoline) 25 mg PO BID [facility] Last Admin: 03/04/17 18:52 Dose: 25 mg Hydromorphone HCl (Dilaudid) 0.5 mg IVP Q6H PRN PRN Reason: Pain, severe (8-10) Last Admin: 03/05/17 11:00 Dose: 0.5 mg Tigecycline 50 mg/ Sodium (Chloride) 100 mls @ 100 mls/hr IVPB Q12H [facility] Last Admin: 03/04/17 21:00 Dose: 100 mls/hr Metronidazole (Flagyl) 500 mg in 100 mls @ 100 mls/hr IVPB Q8 [facility] Last Admin: 03/05/17 05:05 Dose: 100 mls/hr Fluconazole (Diflucan Iv 200 Mg/100 Ml Ns) 100 mls @ 100 mls/hr IVPB DAILY [facility] Last Admin: 03/04/17 10:36 Dose: 100 mls/hr Sodium Chloride 35 meq/Potassium Chloride 30 meq/Magnesium Sulfate 6 meq/ Calcium Gluconate 4.5 meq/Heparin Sodium (Porcine) 1,000 units/ Multivitamins/ Vitamin C 10 ml/ Amino Acids 1,045.9052 mls @ 42 mls/hr IV .Q24H [facility] Stop: 03/05/17 17:59 Last Admin: 03/04/17 18:56 Dose: 42 mls/hr Sodium Chloride 35 meq/Potassium Chloride 30 meq/Magnesium Sulfate 6 meq/ Calcium Gluconate 4.5 meq/Heparin Sodium (Porcine) 1,000 units/ Multivitamins/ Vitamin C 10 ml/ Amino Acids 1,045.9052 mls @ 63 mls/hr IV .[id number] [facility] Stop: 03/06/17 10:00 Sodium Chloride 35 meq/Potassium Chloride 30 meq/Magnesium Sulfate 6 meq/ Calcium Gluconate 4.5 meq/Heparin Sodium (Porcine) 1,000 units/ Amino Acids 1, 035.9052 mls @ 63 mls/hr IV .[id number] [facility] Stop: 03/05/17 18:00 Fat Emulsion Intravenous (Intralipid 20%) 500 mls @ 42 mls/hr IV TuThSa [facility] Insulin Glargine (Lantus) 15 unit SC [facility] Last Admin: 03/04/17 23:05 Dose: 15 u Insulin Human Regular (Novolin R) 0 unit SC ACHS [facility] PRN Reason: Protocol Last Admin: 03/04/17 23:05 Dose: 3 unit Latanoprost (Xalatan Opht) 0.02 ml OU HS [facility] Last Admin: 03/04/17 23:05 Dose: 0.02 ml Losartan Potassium (Cozaar) 100 mg PO DAILY [facility] Last Admin: 03/04/17 09:31 Dose: 100 mg Pantoprazole Sodium (Protonix Inj) 40 mg IVP Q12H [facility] Last Admin: 03/05/17 05:04 Dose: 40 mg Rosuvastatin Calcium (Crestor) 10 mg PO [facility] Last Admin: 03/04/17 23:04 Dose: 10 mg Timolol Maleate (Timoptic 0.5% Oph Soln) 1 drop OU BID [facility] Last Admin: 03/04/17 18:58 Dose: 1 drop Vancomycin HCl (Vancocin (Oral Or Rectal Use)) 125 mg PO QID [facility] Last Admin: 03/04/17 23:05 Dose: 125 mg Vitamin B Complex/Vit C/Folic Acid (Nephro-Alonzo) 1 tab PO 0800 [facility] Last Admin: 03/04/17 09:30 Dose: 1 tab - Labs Labs: 03/05/17 11:02 03/05/17 11:02 PT 12.3 SECONDS (9.7-12.2) H 02/18/17 05:30 INR 1.1 02/18/17 05:30 APTT 30 SECONDS (21-34) 02/18/17 05:30 - Constitutional Appears: No Acute Distress - Head Exam Head Exam: ATRAUMATIC, NORMOCEPHALIC - ENT Exam ENT Exam: Mucous Membranes Moist - Respiratory Exam Respiratory Exam: Decreased Breath Sounds - Cardiovascular Exam Cardiovascular Exam: REGULAR RHYTHM - GI/Abdominal Exam GI & Abdominal Exam: Soft. absent: Tenderness - Extremities Exam Extremities Exam: Pedal Edema Additional comments: Left foot ulcer with wound vac - Neurological Exam Neurological Exam: Awake - Psychiatric Exam Psychiatric exam: Flat Affect - Skin Skin Exam: Dry Additional comments: left foot ulcer with wound vac Assessment and Plan - Assessment and Plan (Free Text) Plan: 71 F POD#5 s/p LLE debridement and wound vac placement -Wound vac change today -IV Abx per ID -medical management as per primary -Further recs per Dr. Bobo Sotelo PGY1
[2017-03-05] MEDS: Vancomycin 125 MG/5 ML SOLN (ORAL/RECTAL) PO SCH ×4 (14:54→22:17)
[2017-03-05] MEDS: Ergocalciferol 50,000 Intl Units Cap PO SCH (14:54)
[2017-03-05] MEDS: Brimonidine 0.2% Opth Sol (5ml) OU SCH ×4 (15:00→18:04)
[2017-03-05] MEDS: Multivitamin Vitamin B Complex (Nephro-Vite) Tab PO SCH (15:03)
--- NOTE | 2017-03-05 16:15 | CP.PCM.PN ---
Subjective - Date & Time of Evaluation Date of Evaluation: 03/05/17 Time of Evaluation: 11:30 - Subjective Subjective: SEEN ON RENAL F/U SEEN ON HD FEELS THE SAME VSS ON HD ALL PREVIOUS EMR REVIEWED Objective - Vital Signs/Intake and Output Vital Signs (last 24 hours): Temp Pulse Resp BP Pulse Ox 98 F 69 18 146/69 96 03/05/17 15:56 03/05/17 15:56 03/05/17 15:56 03/05/17 15:56 03/05/17 15:56 Intake and Output: 03/05/17 03/05/17 06:59 18:59 Intake Total 452 Balance 452 - Medications Medications: Current Medications Acetaminophen (Tylenol 325mg Tab) 650 mg PO Q6 PRN PRN Reason: Pain, Mild (1-3) Last Admin: 03/03/17 11:02 Dose: 650 mg Amlodipine Besylate (Norvasc) 5 mg PO DAILY [facility] Last Admin: 03/05/17 15:03 Dose: 5 mg Ascorbic Acid (Vitamin C 500 Mg Tab) 500 mg PO DAILY [facility] Last Admin: 03/05/17 14:54 Dose: 500 mg Brimonidine Tartrate (Alphagan 0.2% Opht) 1 ml OU TID [facility] Last Admin: 03/05/17 15:05 Dose: Not Given Collagenase (Santyl) 0 gm TOP DAILY [facility] Last Admin: 03/05/17 10:00 Dose: Not Given Collagenase (Santyl) 0 gm TOP DAILY [facility] Last Admin: 03/05/17 10:00 Dose: Not Given Dextrose (Dextrose 50% Inj) 0 ml IV STAT PRN; Protocol PRN Reason: Hyglycemia Protocol Dextrose (Glutose 15) 0 gm PO ONCE PRN; Protocol PRN Reason: Hypoglycemia Protocol Ergocalciferol (Drisdol 50,000 Intl Units Cap) 1 cap PO QWK [facility] Last Admin: 03/05/17 14:54 Dose: 1 cap Furosemide (Lasix) 40 mg PO DAILY [facility] Last Admin: 03/05/17 14:55 Dose: 40 mg Glucagon (Glucagen Diagnostic Kit) 0 mg IM STAT PRN; Protocol PRN Reason: Hypoglycemia Protocol Heparin Sodium (Porcine) (Heparin) 3,700 units IVP TTS [facility] Last Admin: 03/05/17 12:51 Dose: 3,700 units Heparin Sodium (Porcine) (Heparin) 5,000 units SC Q8 [facility] Last Admin: 03/05/17 15:00 Dose: Not Given Hydralazine HCl (Apresoline) 25 mg PO BID [facility] Last Admin: 03/05/17 14:59 Dose: 25 mg Hydromorphone HCl (Dilaudid) 0.5 mg IVP Q6H PRN PRN Reason: Pain, severe (8-10) Last Admin: 03/05/17 11:00 Dose: 0.5 mg Tigecycline 50 mg/ Sodium (Chloride) 100 mls @ 100 mls/hr IVPB Q12H [facility] Last Admin: 03/05/17 14:53 Dose: 100 mls/hr Metronidazole (Flagyl) 500 mg in 100 mls @ 100 mls/hr IVPB Q8 [facility] Last Admin: 03/05/17 05:05 Dose: 100 mls/hr Fluconazole (Diflucan Iv 200 Mg/100 Ml Ns) 100 mls @ 100 mls/hr IVPB DAILY [facility] Last Admin: 03/04/17 10:36 Dose: 100 mls/hr Sodium Chloride 35 meq/Potassium Chloride 30 meq/Magnesium Sulfate 6 meq/ Calcium Gluconate 4.5 meq/Heparin Sodium (Porcine) 1,000 units/ Multivitamins/ Vitamin C 10 ml/ Amino Acids 1,045.9052 mls @ 42 mls/hr IV .Q24H [facility] Stop: 03/05/17 17:59 Last Admin: 03/04/17 18:56 Dose: 42 mls/hr Sodium Chloride 35 meq/Potassium Chloride 30 meq/Magnesium Sulfate 6 meq/ Calcium Gluconate 4.5 meq/Heparin Sodium (Porcine) 1,000 units/ Multivitamins/ Vitamin C 10 ml/ Amino Acids 1,045.9052 mls @ 63 mls/hr IV .[id number] [facility] Stop: 03/06/17 10:00 Sodium Chloride 35 meq/Potassium Chloride 30 meq/Magnesium Sulfate 6 meq/ Calcium Gluconate 4.5 meq/Heparin Sodium (Porcine) 1,000 units/ Amino Acids 1, 035.9052 mls @ 63 mls/hr IV .[id number] [facility] Stop: 03/05/17 18:00 Fat Emulsion Intravenous (Intralipid 20%) 500 mls @ 42 mls/hr IV TuTa [facility] Insulin Glargine (Lantus) 15 unit SC HS [facility] Last Admin: 03/04/17 23:05 Dose: 15 u Insulin Human Regular (Novolin R) 0 unit SC ACHS [facility] PRN Reason: Protocol Last Admin: 03/05/17 11:30 Dose: Not Given Latanoprost (Xalatan Opht) 0.02 ml OU HS [facility] Last Admin: 03/04/17 23:05 Dose: 0.02 ml Losartan Potassium (Cozaar) 100 mg PO DAILY [facility] Last Admin: 03/05/17 14:59 Dose: 100 mg Pantoprazole Sodium (Protonix Inj) 40 mg IVP Q12H [facility] Last Admin: 03/05/17 15:07 Dose: 40 mg Rosuvastatin Calcium (Crestor) 10 mg PO HS [facility] Last Admin: 03/04/17 23:04 Dose: 10 mg Timolol Maleate (Timoptic 0.5% Oph Soln) 1 drop OU BID [facility] Last Admin: 03/05/17 15:00 Dose: 1 drop Vancomycin HCl (Vancocin (Oral Or Rectal Use)) 125 mg PO QID [facility] Last Admin: 03/05/17 15:01 Dose: Not Given Vitamin B Complex/Vit C/Folic Acid (Nephro-Alonzo) 1 tab PO 0800 [facility] Last Admin: 03/05/17 15:03 Dose: 1 tab - Labs Labs: 03/05/17 11:02 03/05/17 11:02 PT 12.3 SECONDS (9.7-12.2) H 02/18/17 05:30 INR 1.1 02/18/17 05:30 APTT 30 SECONDS (21-34) 02/18/17 05:30 Assessment and Plan - Assessment and Plan (Free Text) Assessment: ESRD ON HD T T S ANEMIA OF CKD .. H/H STABLE ELECTROLYTES ABNORMALITIES .. NOW OK SEVERE L LEG AVD .. S/P ANGIOGRAM / PLASTY C/O CURRENT CARE
[2017-03-05] MEDS: Fluconazole IV 200mg/100 ml NS 100 ML IVPB SCH (16:28)
--- NOTE | 2017-03-05 16:51 | CP.PCM.PN ---
Subjective - Date & Time of Evaluation Date of Evaluation: 03/05/17 Time of Evaluation: 10:30 - Subjective Subjective: the patient seen during hemodialysis Lying comfortably in no acute distress Afebrile Response to vocal command Objective - Vital Signs/Intake and Output Vital Signs (last 24 hours): Temp Pulse Resp BP Pulse Ox 98 F 69 18 146/69 96 03/05/17 15:56 03/05/17 15:56 03/05/17 15:56 03/05/17 15:56 03/05/17 15:56 Intake and Output: 03/05/17 03/05/17 06:59 18:59 Intake Total 452 Balance 452 - Medications Medications: Current Medications Acetaminophen (Tylenol 325mg Tab) 650 mg PO Q6 PRN PRN Reason: Pain, Mild (1-3) Last Admin: 03/03/17 11:02 Dose: 650 mg Amlodipine Besylate (Norvasc) [address] [facility] Last Admin: 03/05/17 15:03 Dose: 5 mg Ascorbic Acid (Vitamin C 500 Mg Tab) [address] [facility] Last Admin: 03/05/17 14:54 Dose: 500 mg Brimonidine Tartrate (Alphagan 0.2% Opht) [address] [facility] Last Admin: 03/05/17 15:05 Dose: Not Given Collagenase (Santyl) [address] [facility] Last Admin: 03/05/17 10:00 Dose: Not Given Collagenase (Santyl) [address] [facility] Last Admin: 03/05/17 10:00 Dose: Not Given Dextrose (Dextrose 50% Inj) 0 ml IV STAT PRN; Protocol PRN Reason: Hyglycemia Protocol Dextrose (Glutose 15) 0 gm PO ONCE PRN; Protocol PRN Reason: Hypoglycemia Protocol Ergocalciferol (Drisdol 50,000 Intl Units Cap) [address] [facility] Last Admin: 03/05/17 14:54 Dose: 1 cap Furosemide (Lasix) [address] [facility] Last Admin: 03/05/17 14:55 Dose: 40 mg Glucagon (Glucagen Diagnostic Kit) 0 mg IM STAT PRN; Protocol PRN Reason: Hypoglycemia Protocol Heparin Sodium (Porcine) (Heparin) 3,[address] [facility] Last Admin: 03/05/17 12:51 Dose: 3,700 units Heparin Sodium (Porcine) (Heparin) 5,[address] [facility] Last Admin: 03/05/17 15:00 Dose: Not Given Hydralazine HCl (Apresoline) [address] [facility] Last Admin: 03/05/17 14:59 Dose: 25 mg Hydromorphone HCl (Dilaudid) 0.5 mg IVP Q6H PRN PRN Reason: Pain, severe (8-10) Last Admin: 03/05/17 11:00 Dose: 0.5 mg Tigecycline 50 mg/ Sodium (Chloride) 100 mls @ 100 mls/hr IVPB Q12H [facility] Last Admin: 03/05/17 14:53 Dose: 100 mls/hr Metronidazole (Flagyl) 500 mg in 100 mls @ 100 mls/hr IVPB Q8 [facility] Last Admin: 03/05/17 05:05 Dose: 100 mls/hr Fluconazole (Diflucan Iv 200 Mg/100 Ml Ns) 100 mls @ 100 mls/hr IVPB DAILY [facility] Last Admin: 03/05/17 16:28 Dose: 100 mls/hr Sodium Chloride 35 meq/Potassium Chloride 30 meq/Magnesium Sulfate 6 meq/ Calcium Gluconate 4.5 meq/Heparin Sodium (Porcine) 1,000 units/ Multivitamins/ Vitamin C 10 ml/ Amino Acids 1,045.9052 mls @ 42 mls/hr IV .Q24H [facility] Stop: 03/05/17 17:59 Last Admin: 03/04/17 18:56 Dose: 42 mls/hr Sodium Chloride 35 meq/Potassium Chloride 30 meq/Magnesium Sulfate 6 meq/ Calcium Gluconate 4.5 meq/Heparin Sodium (Porcine) 1,000 units/ Multivitamins/ Vitamin C 10 ml/ Amino Acids 1,045.9052 mls @ 63 mls/hr IV .[id number] [facility] Stop: 03/06/17 10:00 Sodium Chloride 35 meq/Potassium Chloride 30 meq/Magnesium Sulfate 6 meq/ Calcium Gluconate 4.5 meq/Heparin Sodium (Porcine) 1,000 units/ Amino Acids 1, 035.9052 mls @ 63 mls/hr IV .[id number] [facility] Stop: 03/05/17 18:00 Fat Emulsion Intravenous (Intralipid 20%) 500 mls @ 42 mls/hr IV TuTa [facility] Insulin Glargine (Lantus) [address] [facility] Last Admin: 03/04/17 23:05 Dose: 15 u Insulin Human Regular (Novolin R) [address] [facility] PRN Reason: Protocol Last Admin: 03/05/17 11:30 Dose: Not Given Latanoprost (Xalatan Opht) 0.[address] [facility] Last Admin: 03/04/17 23:05 Dose: 0.02 ml Losartan Potassium (Cozaar) [address] [facility] Last Admin: 03/05/17 14:59 Dose: 100 mg Pantoprazole Sodium (Protonix Inj) [address] [facility] Last Admin: 03/05/17 15:07 Dose: 40 mg Rosuvastatin Calcium (Crestor) [address] [facility] Last Admin: 03/04/17 23:04 Dose: 10 mg Timolol Maleate (Timoptic 0.5% Oph Soln) [address] [facility] Last Admin: 03/05/17 15:00 Dose: 1 drop Vancomycin HCl (Vancocin (Oral Or Rectal Use)) [address] [facility] Last Admin: 03/05/17 15:01 Dose: Not Given Vitamin B Complex/Vit C/Folic Acid (Nephro-Alonzo) [address] [facility] Last Admin: 03/05/17 15:03 Dose: 1 tab - Labs Labs: 03/05/17 11:02 03/05/17 11:02 PT 12.3 SECONDS (9.7-12.2) H 02/18/17 05:30 INR 1.1 02/18/17 05:30 APTT 30 SECONDS (21-34) 02/18/17 05:30 - Head Exam Head Exam: ATRAUMATIC, NORMOCEPHALIC - Eye Exam Eye Exam: Normal appearance - ENT Exam ENT Exam: Mucous Membranes Moist - Neck Exam Neck Exam: Normal Inspection - Respiratory Exam Respiratory Exam: Decreased Breath Sounds - Cardiovascular Exam Cardiovascular Exam: REGULAR RHYTHM - GI/Abdominal Exam GI & Abdominal Exam: Soft, Normal Bowel Sounds - Extremities Exam Extremities Exam: Pedal Edema Assessment and Plan (1) Pleural effusion Assessment & Plan: Pleural fluid consistent with transudate secondary to CHF/end-stage renal disease Continue hemodialysis Followup chest x-ray Status: Chronic (2) Change in mental status Status: Acute (3) Clostridium difficile colitis Status: Acute (4) End stage renal disease on dialysis Status: Acute
--- NOTE | 2017-03-05 17:53 | CP.PCM.PN ---
<Piyush Segura - Last Filed: 03/05/17 20:38> Subjective - Date & Time of Evaluation Date of Evaluation: 03/05/17 Time of Evaluation: 10:30 - Subjective Subjective: PGY-[address] Myrick Patient seen and examined at bedside. Patient can utter short syllable words. Full ROS unable to ascertain. Patient recognizing care providers and family. Patient is able to follow basic commands. Objective - Vital Signs/Intake and Output Vital Signs (last 24 hours): Temp Pulse Resp BP Pulse Ox 98 F 69 18 146/69 96 03/05/17 15:56 03/05/17 15:56 03/05/17 15:56 03/05/17 15:56 03/05/17 15:56 Intake and Output: 03/05/17 03/05/17 06:59 18:59 Intake Total 452 Balance 452 - Medications Medications: Current Medications Acetaminophen (Tylenol 325mg Tab) 650 mg PO Q6 PRN PRN Reason: Pain, Mild (1-3) Last Admin: 03/03/17 11:02 Dose: 650 mg Amlodipine Besylate (Norvasc) 5 mg PO DAILY [facility] Last Admin: 03/05/17 15:03 Dose: 5 mg Ascorbic Acid (Vitamin C 500 Mg Tab) 500 mg PO DAILY [facility] Last Admin: 03/05/17 14:54 Dose: 500 mg Brimonidine Tartrate (Alphagan 0.2% Opht) 1 ml OU TID [facility] Last Admin: 03/05/17 15:05 Dose: Not Given Collagenase (Santyl) 0 gm TOP DAILY [facility] Last Admin: 03/05/17 10:00 Dose: Not Given Collagenase (Santyl) 0 gm TOP DAILY [facility] Last Admin: 03/05/17 10:00 Dose: Not Given Dextrose (Dextrose 50% Inj) 0 ml IV STAT PRN; Protocol PRN Reason: Hyglycemia Protocol Dextrose (Glutose 15) 0 gm PO ONCE PRN; Protocol PRN Reason: Hypoglycemia Protocol Ergocalciferol (Drisdol 50,000 Intl Units Cap) 1 cap PO QWK [facility] Last Admin: 03/05/17 14:54 Dose: 1 cap Furosemide (Lasix) 40 mg PO DAILY [facility] Last Admin: 03/05/17 14:55 Dose: 40 mg Glucagon (Glucagen Diagnostic Kit) 0 mg IM STAT PRN; Protocol PRN Reason: Hypoglycemia Protocol Heparin Sodium (Porcine) (Heparin) 3,700 units IVP TTS [facility] Last Admin: 03/05/17 12:51 Dose: 3,700 units Heparin Sodium (Porcine) (Heparin) 5,000 units SC Q8 [facility] Last Admin: 03/05/17 15:00 Dose: Not Given Hydralazine HCl (Apresoline) 25 mg PO BID [facility] Last Admin: 03/05/17 14:59 Dose: 25 mg Hydromorphone HCl (Dilaudid) 0.5 mg IVP Q6H PRN PRN Reason: Pain, severe (8-10) Last Admin: 03/05/17 11:00 Dose: 0.5 mg Tigecycline 50 mg/ Sodium (Chloride) 100 mls @ 100 mls/hr IVPB Q12H [facility] Last Admin: 03/05/17 14:53 Dose: 100 mls/hr Metronidazole (Flagyl) 500 mg in 100 mls @ 100 mls/hr IVPB Q8 [facility] Last Admin: 03/05/17 05:05 Dose: 100 mls/hr Fluconazole (Diflucan Iv 200 Mg/100 Ml Ns) 100 mls @ 100 mls/hr IVPB DAILY [facility] Last Admin: 03/05/17 16:28 Dose: 100 mls/hr Sodium Chloride 35 meq/Potassium Chloride 30 meq/Magnesium Sulfate 6 meq/ Calcium Gluconate 4.5 meq/Heparin Sodium (Porcine) 1,000 units/ Multivitamins/ Vitamin C 10 ml/ Amino Acids 1,045.9052 mls @ 42 mls/hr IV .Q24H [facility] Stop: 03/05/17 17:59 Last Admin: 03/04/17 18:56 Dose: 42 mls/hr Sodium Chloride 35 meq/Potassium Chloride 30 meq/Magnesium Sulfate 6 meq/ Calcium Gluconate 4.5 meq/Heparin Sodium (Porcine) 1,000 units/ Multivitamins/ Vitamin C 10 ml/ Amino Acids 1,045.9052 mls @ 63 mls/hr IV .[id number] [facility] Stop: 03/06/17 10:00 Sodium Chloride 35 meq/Potassium Chloride 30 meq/Magnesium Sulfate 6 meq/ Calcium Gluconate 4.5 meq/Heparin Sodium (Porcine) 1,000 units/ Amino Acids 1, 035.9052 mls @ 63 mls/hr IV .[id number] [facility] Stop: 03/05/17 18:00 Fat Emulsion Intravenous (Intralipid 20%) 500 mls @ 42 mls/hr IV TuThSa [facility] Insulin Glargine (Lantus) 15 unit SC [facility] Last Admin: 03/04/17 23:05 Dose: 15 u Insulin Human Regular (Novolin R) 0 unit SC ACHS [facility] PRN Reason: Protocol Last Admin: 03/05/17 11:30 Dose: Not Given Latanoprost (Xalatan Opht) 0.02 ml OU HS [facility] Last Admin: 03/04/17 23:05 Dose: 0.02 ml Losartan Potassium (Cozaar) 100 mg PO DAILY [facility] Last Admin: 03/05/17 14:59 Dose: 100 mg Pantoprazole Sodium (Protonix Inj) 40 mg IVP Q12H [facility] Last Admin: 03/05/17 15:07 Dose: 40 mg Rosuvastatin Calcium (Crestor) 10 mg PO HS [facility] Last Admin: 03/04/17 23:04 Dose: 10 mg Timolol Maleate (Timoptic 0.5% Oph Soln) 1 drop OU BID [facility] Last Admin: 03/05/17 15:00 Dose: 1 drop Vancomycin HCl (Vancocin (Oral Or Rectal Use)) 125 mg PO QID [facility] Last Admin: 03/05/17 15:01 Dose: Not Given Vitamin B Complex/Vit C/Folic Acid (Nephro-Alonzo) 1 tab PO 0800 [facility] Last Admin: 03/05/17 15:03 Dose: 1 tab - Labs Labs: 03/05/17 11:02 03/05/17 11:02 PT 12.3 SECONDS (9.7-12.2) H 02/18/17 05:30 INR 1.1 02/18/17 05:30 APTT 30 SECONDS (21-34) 02/18/17 05:30 - Constitutional Appears: No Acute Distress, Chronically Ill - Head Exam Head Exam: ATRAUMATIC, NORMOCEPHALIC - Eye Exam Eye Exam: EOMI, PERRL - ENT Exam ENT Exam: Mucous Membranes Moist - Respiratory Exam Respiratory Exam: Clear to Ausculation Bilateral. absent: Rales, Rhonchi, Wheezes - Cardiovascular Exam Cardiovascular Exam: REGULAR RHYTHM, +S1, +S2 - GI/Abdominal Exam GI & Abdominal Exam: Soft, Normal Bowel Sounds. absent: Tenderness - Extremities Exam Extremities Exam: absent: Pedal Edema Additional comments: Chronic venous stasis changes bilaterally in the legs Left foot ulcer with 10x5 cm eschar spanning lateral plantar surface s/p debridement with wound vac in place for left foot wound. - Neurological Exam Neurological Exam: Alert, Awake - Skin Skin Exam: Dry, Pallor Assessment and Plan - Assessment and Plan (Free Text) Plan: 1. Non-Healing Left Heel Ulcer 03/02: Wound vac was replaced this afternoon. Gram positive cocci grew in the blood cultures. 03/01: POD #2 s/p debridement of L foot ulcer. Patient's WBC increased to 21.7 with left shift. Lactate 2.8--> repeat 1.9; recheck blood cultures today. Plan to change wound vac on foot tomorrow. 02/26/17: Patient underwent aortofemoral angiogram via right groin with selective catheterization of left anterior femoral artery. Balloon angioplasty of popliteal artery. Pathway arthrectomy and balloon angioplasty of anterior tibial artery. 02/27/17: Debridement of left foot ulcer with wound vac placed and cultures taken. Podiatry consult - Dr. Avery, help appreciated Infectious Disease Dr. Wellington consulted, help appreciated. Dr. Broussard on board, help appreciated. Low ext arterial duplex (02/04/17): R- occlusion R post tib artery, 50-75% stenosis right mid popliteal & proximal anterior tib arteries L- occlusion of left post tib artery, >75% stenosis left proximal ant tibial artery, 50-75% stenosis left distal SFA & proximal popliteal a. Vancomycin 1000 mg IV [facility] D/C'ed on 02/22/17 Cefepime 1 gm IV Q24H 02/18/17 to 02/23/17 Zyvox 600 mg PO BID started 02/22/17-02/23/17 Current antibiotics: Tygacil 100 mg loading dose on 02/25/17 and then continued as Tygacil 50 mg IV Q12H, Vanco 125mg PO QID, Flagyl 500mg IV q8h Abdominal Angiography 02/19/17: Severe bilateral lower extremity arterial runoff with 1 vessel likely remaining patent at the right. None is continuously patent at the left lower extremity [id number]. Widely patent abdominal aorta and iliac arterial system with moderate right and [id number] left femoral arterial disease. Severe bilateral popliteal artery arterial disease. Dr. Avery recommended Left BKA given his physical exam findings. Dr. Broussard also recommends the left BKA. He stated that even if the gangrenous portion is removed, it will not heal regardless of revascularization. As of 02/25, the patient's family has decided for her to stay and have Dr. Broussard clean the wound and improve the circulation in the leg. Before this, they were adamant about getting the patient to [facility] for hyperbaric therapy to try to salvage the leg. They still do not wish for amputation at this time. 2. Left Pleural Effusion 03/02: 500 cc clear fluid drained from the left pleura 03/01: Chest X-ray ordered showed left sided pleural effusion new since admission (see full report) f/u CT chest without contrast Ordered thoracentesis with fluid studies Consulted [employer] Dr Rama osman f/u recommendations 3. C. Diff C. Diff studies positive Patient on isolation contact precaution Vancomycin 125 mg PO QID started Dr. Wellington added Flagyl 500 mg IV Q8H f/u repeat C diff and stool culture on 02/28 4. Altered Mental Status 03/01: Patient obtunded this AM due to Gabapentin that was given night prior ( renally excreted). Gabapentin was discontinued. Repeat CT head without contrast was ordered this morning which was negative for acute infarct. Avoid pain medications that are renally excreted at this time. CT Head negative for Acute Territorial Infarction Patient found hypoglycemic by both and EMS with symptoms that suggest seizure episode. Patient is a poorly controlled diabetic. Monitor Accuchecks qACHS and Q4H Patient likely had an episode of neuroglycopenia and currently in post-ictal state. Due to post-ictal state, decision made to avoid narcotic pain medications. CIRCUIT RIDER performed successful bedside swallow eval and recommended Pureed diet with thin liquids. Home PO meds restarted. Neurology consult Dr. Tanisha Aguirre, help appreciated. Thiamine 100 mg Q8H Could not get brain MRI which was neuro's recommendation due to 3 previous attempts where patient was moving too much. We do not wish to further sedate the patient due to her current mental state, so instead a repeat CT Head without contrast was done on 02/23/17. This CT head did not demonstrate any acute hemorrhagic or ischemic pathology. 5. End Stage Renal Disease on Hemodialysis On HD T,Th,S Dr. Ambrose nephrology consulted- help appreciated 6. Decreased oral intake 03/01: Patient unable to eat due to altered mental status. Status changed to NPO at this time. Starting TPN for nutrition to be given via PICC line. 03/05/17: TPN changed to increase proteins per dietary's recommendations. -Diflucan was added empirically by GI team. 7. Hypertension 03/02: Patient resumed oral BP medications today and tolerated without issue. 03/01: Patient normotensive, held oral BP medications due to NPO status. Given Lasix 20mg IV x1 dose. Will monitor BP q4h and given medications as needed. PO Home medications held * Norvasc 5 mg PO daily * Losartan 100 mg PO daily * Furosemide 40 mg PO daily * Held Bumex for now Monitor BP q6h and adjust meds as needed 8. Anemia of Chronic Disease Hgb stable Likely secondary to ESRD Dr. Ambrose put for IV ferlicet 125 mg and Procrit 10,000 units IV Monitor CBC daily 9. Diabetes 03/01: Patient having multiple episodes of hypoglycemia causing mental status change. Stopping standing insulin. 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 Accuchecks qACHS [facility] Home Lantus 30 units SC HS- reduced to 15 units HS Crestor 10mg PO HS 10. Prophylactic Measures SCDs Heparin 5000 units SC Q8H 1:1 observation due to agitation. Patient tries to get out of bed. Fall precautions Palliative care consulted. Dietary consulted for recommendations for TPN Disposition: This patient has a very poor prognosis. The family wishes to try to save the leg despite multiple professional opinions on the necessity of an amputation. The family initially wished for the patient to go to [facility] where hyperbaric therapy is available in order to promote healing. They wished to be cared for by their personal valve repairer Dr. Ware; however, Dr. Ware has become unavailable. So the family decided to remain at [facility] and attempt healing via vascular surgery to improve circulation and wound debridement of damaged tissue. They were repeatedly warned by multiple medical assistant dermatology of the risks associated with refusing a BKA and attempting to salvage the foot. The family verbalized understanding of the risks but still decide against a BKA at this time. Case DW Dr. Ramez Segura PGY-1 <Benson Myrick Jr. - Last Filed: 03/08/17 12:14> Objective - Vital Signs/Intake and Output Vital Signs (last 24 hours): Temp Pulse Resp BP Pulse Ox 97.9 F 76 20 166/69 H 98 03/08/17 08:12 03/08/17 08:12 03/08/17 08:12 03/08/17 10:49 03/08/17 08:12 Intake and Output: 03/08/17 03/08/17 06:59 18:59 Intake Total 770 Balance 770 - Medications Medications: Current Medications Acetaminophen (Tylenol 325mg Tab) 650 mg PO Q6 PRN PRN Reason: Pain, Mild (1-3) Last Admin: 03/07/17 18:20 Dose: 650 mg Amlodipine Besylate (Norvasc) 5 mg PO DAILY [facility] Last Admin: 03/08/17 10:50 Dose: 5 mg Ascorbic Acid (Vitamin C 500 Mg Tab) 500 mg PO DAILY [facility] Last Admin: 03/08/17 10:49 Dose: 500 mg Brimonidine Tartrate (Alphagan 0.2% Opht) 1 ml OU TID [facility] Last Admin: 03/08/17 10:52 Dose: 1 drop Collagenase (Santyl) 0 gm TOP DAILY [facility] Last Admin: 03/08/17 10:50 Dose: Not Given Dextrose (Dextrose 50% Inj) 0 ml IV STAT PRN; Protocol PRN Reason: Hyglycemia Protocol Dextrose (Glutose 15) 0 gm PO ONCE PRN; Protocol PRN Reason: Hypoglycemia Protocol Epoetin Maxwell (Procrit) 10,000 unit IV TTS [facility] Last Admin: 03/07/17 11:29 Dose: 10,000 unit Ergocalciferol (Drisdol 50,000 Intl Units Cap) 1 cap PO QWK [facility] Last Admin: 03/05/17 14:54 Dose: 1 cap Furosemide (Lasix) 40 mg PO DAILY [facility] Last Admin: 03/08/17 10:49 Dose: 40 mg Glucagon (Glucagen Diagnostic Kit) 0 mg IM STAT PRN; Protocol PRN Reason: Hypoglycemia Protocol Heparin Sodium (Porcine) (Heparin) 5,000 units SC Q8 [facility] Last Admin: 03/08/17 04:59 Dose: 5,000 units Heparin Sodium (Porcine) (Heparin) 3,700 units IVP TTS [facility] Stop: 03/24/17 23:59 Last Admin: 03/07/17 11:20 Dose: 3,700 units Hydralazine HCl (Apresoline) 25 mg PO BID [facility] Last Admin: 03/08/17 10:49 Dose: 25 mg Hydromorphone HCl (Dilaudid) 0.5 mg IVP Q6H PRN PRN Reason: Pain, severe (8-10) Last Admin: 03/08/17 10:50 Dose: 0.5 mg Tigecycline 50 mg/ Sodium (Chloride) 100 mls @ 100 mls/hr IVPB Q12H [facility] Last Admin: 03/08/17 08:33 Dose: 100 mls/hr Fluconazole (Diflucan Iv 200 Mg/100 Ml Ns) 100 mls @ 100 mls/hr IVPB DAILY [facility] Last Admin: 03/08/17 11:03 Dose: 100 mls/hr Sodium Chloride 35 meq/Potassium Chloride 30 meq/Magnesium Sulfate 6 meq/ Calcium Gluconate 4.5 meq/Heparin Sodium (Porcine) 1,000 units/ Amino Acids 1, 035.9052 mls @ 63 mls/hr IV .[id number] [facility] Stop: 03/08/17 18:00 Last Admin: 03/08/17 11:03 Dose: 63 mls/hr Sodium Chloride 35 meq/Potassium Chloride 30 meq/Magnesium Sulfate 6 meq/ Calcium Gluconate 4.5 meq/Heparin Sodium (Porcine) 1,000 units/ Amino Acids 1, 035.9052 mls @ 63 mls/hr IV .[id number] [facility] Stop: 03/09/17 10:26 Sodium Chloride 35 meq/Potassium Chloride 30 meq/Magnesium Sulfate 6 meq/ Calcium Gluconate 4.5 meq/Heparin Sodium (Porcine) 1,000 units/ Amino Acids 1, 035.9052 mls @ 63 mls/hr IV .[id number] [facility] Stop: 03/09/17 17:59 Insulin Glargine (Lantus) 25 unit SC HS [facility] Last Admin: 03/07/17 21:03 Dose: 25 unit Insulin Human Regular (Novolin R) 0 unit SC ACHS [facility] PRN Reason: Protocol Last Admin: 03/08/17 08:33 Dose: 12 unit Latanoprost (Xalatan Opht) 0.02 ml OU HS [facility] Last Admin: 03/07/17 21:13 Dose: Not Given Losartan Potassium (Cozaar) 100 mg PO DAILY [facility] Last Admin: 03/08/17 10:49 Dose: 100 mg Pantoprazole Sodium (Protonix Inj) 40 mg IVP Q12H [facility] Last Admin: 03/08/17 04:26 Dose: 40 mg Rosuvastatin Calcium (Crestor) 10 mg PO HS [facility] Last Admin: 03/07/17 21:07 Dose: 10 mg Timolol Maleate (Timoptic 0.5% Oph Soln) 1 drop OU BID [facility] Last Admin: 03/08/17 10:51 Dose: 1 drop Vitamin B Complex/Vit C/Folic Acid (Nephro-Alonzo) 1 tab PO 0800 [facility] Last Admin: 03/08/17 08:33 Dose: 1 tab - Labs Labs: 03/07/17 10:03 03/07/17 10:03 PT 12.3 SECONDS (9.7-12.2) H 02/18/17 05:30 INR 1.1 02/18/17 05:30 APTT 30 SECONDS (21-34) 02/18/17 05:30 Attending/Attestation - Attestation I have personally seen and examined this patient.: Yes I have fully participated in the care of the patient.: Yes I have reviewed all pertinent clinical information, including history, physical exam and plan: Yes Notes (Text): 03/08/17 12:13 Agree with resident note and plan of care
[2017-03-05] MEDS ORDERED: TPN # 5 IV SCH (18:00)
[2017-03-05] MEDS: Fat Emulsion 20% IV 500 ML IV SCH (18:02)
[2017-03-05] MEDS: (Lantus) Insulin Glargine, Recombinant SC SCH (22:18)
[2017-03-05] MEDS: Latanoprost 2.5 ml Opht Soln OU SCH (22:33)
[2017-03-06] MEDS: metroNIDAZOLE IV 500 mg/100 ml 500 MG/100 ML BAG IVPB SCH (05:08)
--- NOTE | 2017-03-06 07:06 | CP.PCM.PN ---
<Piyush Segura - Last Filed: 03/06/17 17:24> Subjective - Date & Time of Evaluation Date of Evaluation: 03/06/17 Time of Evaluation: 07:00 - Subjective Subjective: PGY-[address] Myrick Patient seen and examined at bedside. Patient resting comfortably. Full ROS unable to ascertain due to current verbal status. Patient better able to communicate with short syllable words and visual cues for her needs. Patient recognizing care providers and family. Patient is able to follow basic commands. Objective - Vital Signs/Intake and Output Vital Signs (last 24 hours): Temp Pulse Resp BP Pulse Ox 98.2 F 73 20 143/63 99 03/05/17 23:40 03/05/17 23:40 03/05/17 23:40 03/05/17 23:40 03/05/17 23:40 - Medications Medications: Current Medications Acetaminophen (Tylenol 325mg Tab) 650 mg PO Q6 PRN PRN Reason: Pain, Mild (1-3) Last Admin: 03/03/17 11:02 Dose: 650 mg Amlodipine Besylate (Norvasc) 5 mg PO DAILY [facility] Last Admin: 03/05/17 15:03 Dose: 5 mg Ascorbic Acid (Vitamin C 500 Mg Tab) 500 mg PO DAILY [facility] Last Admin: 03/05/17 14:54 Dose: 500 mg Brimonidine Tartrate (Alphagan 0.2% Opht) 1 ml OU TID [facility] Last Admin: 03/05/17 18:04 Dose: 1 drop Collagenase (Santyl) 0 gm TOP DAILY [facility] Last Admin: 03/05/17 10:00 Dose: Not Given Dextrose (Dextrose 50% Inj) 0 ml IV STAT PRN; Protocol PRN Reason: Hyglycemia Protocol Dextrose (Glutose 15) 0 gm PO ONCE PRN; Protocol PRN Reason: Hypoglycemia Protocol Ergocalciferol (Drisdol 50,000 Intl Units Cap) 1 cap PO QWK [facility] Last Admin: 03/05/17 14:54 Dose: 1 cap Furosemide (Lasix) 40 mg PO DAILY [facility] Last Admin: 03/05/17 14:55 Dose: 40 mg Glucagon (Glucagen Diagnostic Kit) 0 mg IM STAT PRN; Protocol PRN Reason: Hypoglycemia Protocol Heparin Sodium (Porcine) (Heparin) 3,700 units IVP TTS [facility] Last Admin: 03/05/17 12:51 Dose: 3,700 units Heparin Sodium (Porcine) (Heparin) 5,000 units SC Q8 [facility] Last Admin: 03/06/17 05:07 Dose: 5,000 units Hydralazine HCl (Apresoline) 25 mg PO BID [facility] Last Admin: 03/05/17 18:04 Dose: 25 mg Hydromorphone HCl (Dilaudid) 0.5 mg IVP Q6H PRN PRN Reason: Pain, severe (8-10) Last Admin: 03/05/17 18:19 Dose: 0.5 mg Tigecycline 50 mg/ Sodium (Chloride) 100 mls @ 100 mls/hr IVPB Q12H [facility] Last Admin: 03/05/17 21:20 Dose: 100 mls/hr Fluconazole (Diflucan Iv 200 Mg/100 Ml Ns) 100 mls @ 100 mls/hr IVPB DAILY [facility] Last Admin: 03/05/17 16:28 Dose: 100 mls/hr Sodium Chloride 35 meq/Potassium Chloride 30 meq/Magnesium Sulfate 6 meq/ Calcium Gluconate 4.5 meq/Heparin Sodium (Porcine) 1,000 units/ Multivitamins/ Vitamin C 10 ml/ Amino Acids 1,045.9052 mls @ 63 mls/hr IV .[id number] [facility] Stop: 03/06/17 10:00 Last Admin: 03/05/17 18:03 Dose: 63 mls/hr Fat Emulsion Intravenous (Intralipid 20%) 500 mls @ 42 mls/hr IV TuThSa [facility] Last Admin: 03/05/17 18:02 Dose: 42 mls/hr Insulin Glargine (Lantus) 15 unit SC HS [facility] Last Admin: 03/05/17 22:18 Dose: 15 u Insulin Human Regular (Novolin R) 0 unit SC ACHS [facility] PRN Reason: Protocol Last Admin: 03/05/17 22:18 Dose: 3 unit Latanoprost (Xalatan Opht) 0.02 ml OU HS [facility] Last Admin: 03/05/17 22:33 Dose: Not Given Losartan Potassium (Cozaar) 100 mg PO DAILY [facility] Last Admin: 03/05/17 14:59 Dose: 100 mg Pantoprazole Sodium (Protonix Inj) 40 mg IVP Q12H [facility] Last Admin: 03/06/17 03:05 Dose: 40 mg Rosuvastatin Calcium (Crestor) 10 mg PO HS [facility] Last Admin: 03/05/17 22:17 Dose: 10 mg Timolol Maleate (Timoptic 0.5% Ophth Soln) 1 drop OU BID [facility] Last Admin: 03/05/17 22:31 Dose: 1 drop Vancomycin HCl (Vancocin (Oral Or Rectal Use)) 125 mg PO QID [facility] Last Admin: 03/05/17 22:17 Dose: 125 mg Vitamin B Complex/Vit C/Folic Acid (Nephro-Alonzo) 1 tab PO 0800 [facility] Last Admin: 03/05/17 15:03 Dose: 1 tab - Labs Labs: 03/05/17 11:02 03/05/17 11:02 PT 12.3 SECONDS (9.7-12.2) H 02/18/17 05:30 INR 1.1 02/18/17 05:30 APTT 30 SECONDS (21-34) 02/18/17 05:30 - Constitutional Appears: No Acute Distress, Chronically Ill - Head Exam Head Exam: ATRAUMATIC, NORMOCEPHALIC - Eye Exam Eye Exam: EOMI, PERRL - ENT Exam ENT Exam: Mucous Membranes Dry - Respiratory Exam Respiratory Exam: Clear to Ausculation Bilateral. absent: Rales, Rhonchi, Wheezes - Cardiovascular Exam Cardiovascular Exam: REGULAR RHYTHM, +S1, +S2 - GI/Abdominal Exam GI & Abdominal Exam: Soft, Normal Bowel Sounds. absent: Tenderness - Extremities Exam Extremities Exam: absent: Calf Tenderness, Pedal Edema Additional comments: Chronic venous stasis changes bilaterally in the legs Left foot ulcer with 10x5 cm eschar spanning lateral plantar surface s/p debridement with wound vac in place for left foot wound. - Neurological Exam Neurological Exam: Alert, Awake - Skin Skin Exam: Dry, Pallor Assessment and Plan - Assessment and Plan (Free Text) Plan: 1. Non-Healing Left Heel Ulcer 03/02: Wound vac was replaced this afternoon. Gram positive cocci grew in the blood cultures. 03/01: POD #2 s/p debridement of L foot ulcer. Patient's WBC increased to 21.7 with left shift. Lactate 2.8--> repeat 1.9; recheck blood cultures today. Plan to change wound vac on foot tomorrow. 02/26/17: Patient underwent aortofemoral angiogram via right groin with selective catheterization of left anterior femoral artery. Balloon angioplasty of popliteal artery. Pathway arthrectomy and balloon angioplasty of anterior tibial artery. 02/27/17: Debridement of left foot ulcer with wound vac placed and cultures taken. Podiatry consult - Dr. Avery, help appreciated Infectious Disease Dr. Wellington consulted, help appreciated. Dr. Broussard on board, help appreciated. Low ext arterial duplex (02/04/17): R- occlusion R post tib artery, 50-75% stenosis right mid popliteal & proximal anterior tib arteries L- occlusion of left post tib artery, >75% stenosis left proximal ant tibial artery, 50-75% stenosis left distal SFA & proximal popliteal a. Vancomycin 1000 mg IV MWF [facility] D/C'ed on 02/22/17 Cefepime 1 gm IV Q24H 02/18/17 to 02/23/17 Zyvox 600 mg PO BID started 02/22/17-02/23/17 Current antibiotics: Tygacil 100 mg loading dose on 02/25/17 and then continued as Tygacil 50 mg IV Q12H, Vanco 125mg PO QID, Flagyl 500mg IV q8h Abdominal Angiography 02/19/17: Severe bilateral lower extremity arterial runoff with 1 vessel likely remaining patent at the right. None is continuously patent at the left lower extremity [id number]. Widely patent abdominal aorta and iliac arterial system with moderate right and [id number] left femoral arterial disease. Severe bilateral popliteal artery arterial disease. Dr. Avery recommended Left BKA given his physical exam findings. Dr. Broussard also recommends the left BKA. He stated that even if the gangrenous portion is removed, it will not heal regardless of revascularization. As of 02/25, the patient's family has decided for her to stay and have Dr. Broussard clean the wound and improve the circulation in the leg. Before this, they were adamant about getting the patient to [facility] for hyperbaric therapy to try to salvage the leg. They still do not wish for amputation at this time. 2. Left Pleural Effusion 03/02: 500 cc clear fluid drained from the left pleura 03/01: Chest X-ray ordered showed left sided pleural effusion new since admission (see full report) f/u CT chest without contrast Ordered thoracentesis with fluid studies Consulted Clinical Documentation Consultant Dr John- will f/u recommendations 3. C. Diff C. Diff studies positive Patient on isolation contact precaution Vancomycin 125 mg PO QID started Dr. Wellington added Flagyl 500 mg IV Q8H f/u repeat C diff and stool culture on 02/28 4. Altered Mental Status 03/01: Patient obtunded this AM due to Gabapentin that was given night prior ( renally excreted). Gabapentin was discontinued. Repeat CT head without contrast was ordered this morning which was negative for acute infarct. Avoid pain medications that are renally excreted at this time. CT Head negative for Acute Territorial Infarction Patient found hypoglycemic by both and EMS with symptoms that suggest seizure episode. Patient is a poorly controlled diabetic. Monitor Accuchecks qACHS and Q4H Patient likely had an episode of neuroglycopenia and currently in post-ictal state. Due to post-ictal state, decision made to avoid narcotic pain medications. BONDERITE OPERATOR performed successful bedside swallow eval and recommended Pureed diet with thin liquids. Home PO meds restarted. Neurology consult Dr. Tanisha Aguirre, help appreciated. Thiamine 100 mg Q8H Could not get brain MRI which was neuro's recommendation due to 3 previous attempts where patient was moving too much. We do not wish to further sedate the patient due to her current mental state, so instead a repeat CT Head without contrast was done on 02/23/17. This CT head did not demonstrate any acute hemorrhagic or ischemic pathology. 5. End Stage Renal Disease on Hemodialysis On HD T,,S Dr. Ambrose nephrology consulted- help appreciated 6. Decreased oral intake 03/01: Patient unable to eat due to altered mental status. Status changed to NPO at this time. Starting TPN for nutrition to be given via PICC line. 03/05/17: TPN changed to increase proteins per dietary's recommendations. -Diflucan was added empirically by GI team. 7. Hypertension 03/02: Patient resumed oral BP medications today and tolerated without issue. 03/01: Patient normotensive, held oral BP medications due to NPO status. Given Lasix 20mg IV x1 dose. Will monitor BP q4h and given medications as needed. PO Home medications held * Norvasc 5 mg PO daily * Losartan 100 mg PO daily * Furosemide 40 mg PO daily * Held Bumex for now Monitor BP q6h and adjust meds as needed 8. Anemia of Chronic Disease Hgb stable Likely secondary to ESRD Dr. Ambrose put for IV ferlicet 125 mg and Procrit 10,000 units IV Monitor CBC daily 9. Diabetes 03/01: Patient having multiple episodes of hypoglycemia causing mental status change. Stopping standing insulin. See AUTOMOTIVE INTERNET SALES CONSULTANT note for more information. Accuchecks qACHS [facility] Home Lantus 30 units SC HS- reduced to 15 units HS Lantus increased to 25 units on 03/06/[address] Myrick her sliding scale coverage for the last few days Crestor 10mg PO HS 10. Prophylactic Measures SCDs Heparin 5000 units SC Q8H 1:1 observation due to agitation. Patient tries to get out of bed. Fall precautions Palliative care consulted. Dietary consulted for recommendations for TPN Disposition: This patient has a very poor prognosis. The family wishes to try to save the leg despite multiple professional opinions on the necessity of an amputation. The family initially wished for the patient to go to [facility] where hyperbaric therapy is available in order to promote healing. They wished to be cared for by their personal transfer iron operator Dr. Ware; however, Dr. Ware has become unavailable. So the family decided to remain at [facility] and attempt healing via vascular surgery to improve circulation and wound debridement of damaged tissue. They were repeatedly warned by multiple medical assisting program director of the risks associated with refusing a BKA and attempting to salvage the foot. The family verbalized understanding of the risks but still decide against a BKA at this time. Case DW Dr. Ramez Segura PGY-1 <Benson Myrick Jr. - Last Filed: 03/08/17 12:14> Objective - Vital Signs/Intake and Output Vital Signs (last 24 hours): Temp Pulse Resp BP Pulse Ox 97.9 F 76 20 166/69 H 98 03/08/17 08:12 03/08/17 08:12 03/08/17 08:12 03/08/17 10:49 03/08/17 08:12 Intake and Output: 03/08/17 03/08/17 06:59 18:59 Intake Total 770 Balance 770 - Medications Medications: Current Medications Acetaminophen (Tylenol 325mg Tab) 650 mg PO Q6 PRN PRN Reason: Pain, Mild (1-3) Last Admin: 03/07/17 18:20 Dose: 650 mg Amlodipine Besylate (Norvasc) 5 mg PO DAILY [facility] Last Admin: 03/08/17 10:50 Dose: 5 mg Ascorbic Acid (Vitamin C 500 Mg Tab) 500 mg PO DAILY [facility] Last Admin: 03/08/17 10:49 Dose: 500 mg Brimonidine Tartrate (Alphagan 0.2% Opht) 1 ml OU TID [facility] Last Admin: 03/08/17 10:52 Dose: 1 drop Collagenase (Santyl) 0 gm TOP DAILY [facility] Last Admin: 03/08/17 10:50 Dose: Not Given Dextrose (Dextrose 50% Inj) 0 ml IV STAT PRN; Protocol PRN Reason: Hyglycemia Protocol Dextrose (Glutose 15) 0 gm PO ONCE PRN; Protocol PRN Reason: Hypoglycemia Protocol Epoetin Maxwell (Procrit) 10,000 unit IV TTS [facility] Last Admin: 03/07/17 11:29 Dose: 10,000 unit Ergocalciferol (Drisdol 50,000 Intl Units Cap) 1 cap PO QWK [facility] Last Admin: 03/05/17 14:54 Dose: 1 cap Furosemide (Lasix) 40 mg PO DAILY [facility] Last Admin: 03/08/17 10:49 Dose: 40 mg Glucagon (Glucagen Diagnostic Kit) 0 mg IM STAT PRN; Protocol PRN Reason: Hypoglycemia Protocol Heparin Sodium (Porcine) (Heparin) 5,000 units SC Q8 [facility] Last Admin: 03/08/17 04:59 Dose: 5,000 units Heparin Sodium (Porcine) (Heparin) 3,700 units IVP TTS [facility] Stop: 03/24/17 23:59 Last Admin: 03/07/17 11:20 Dose: 3,700 units Hydralazine HCl (Apresoline) 25 mg PO BID [facility] Last Admin: 03/08/17 10:49 Dose: 25 mg Hydromorphone HCl (Dilaudid) 0.5 mg IVP Q6H PRN PRN Reason: Pain, severe (8-10) Last Admin: 03/08/17 10:50 Dose: 0.5 mg Tigecycline 50 mg/ Sodium (Chloride) 100 mls @ 100 mls/hr IVPB Q12H [facility] Last Admin: 03/08/17 08:33 Dose: 100 mls/hr Fluconazole (Diflucan Iv 200 Mg/100 Ml Ns) 100 mls @ 100 mls/hr IVPB DAILY [facility] Last Admin: 03/08/17 11:03 Dose: 100 mls/hr Sodium Chloride 35 meq/Potassium Chloride 30 meq/Magnesium Sulfate 6 meq/ Calcium Gluconate 4.5 meq/Heparin Sodium (Porcine) 1,000 units/ Amino Acids 1, 035.9052 mls @ 63 mls/hr IV .[id number] [facility] Stop: 03/08/17 18:00 Last Admin: 03/08/17 11:03 Dose: 63 mls/hr Sodium Chloride 35 meq/Potassium Chloride 30 meq/Magnesium Sulfate 6 meq/ Calcium Gluconate 4.5 meq/Heparin Sodium (Porcine) 1,000 units/ Amino Acids 1, 035.9052 mls @ 63 mls/hr IV .[id number] [facility] Stop: 03/09/17 10:26 Sodium Chloride 35 meq/Potassium Chloride 30 meq/Magnesium Sulfate 6 meq/ Calcium Gluconate 4.5 meq/Heparin Sodium (Porcine) 1,000 units/ Amino Acids 1, 035.9052 mls @ 63 mls/hr IV .[id number] [facility] Stop: 03/09/17 17:59 Insulin Glargine (Lantus) 25 unit SC HS [facility] Last Admin: 03/07/17 21:03 Dose: 25 unit Insulin Human Regular (Novolin R) 0 unit SC ACHS [facility] PRN Reason: Protocol Last Admin: 03/08/17 08:33 Dose: 12 unit Latanoprost (Xalatan Opht) 0.02 ml OU HS [facility] Last Admin: 03/07/17 21:13 Dose: Not Given Losartan Potassium (Cozaar) 100 mg PO DAILY [facility] Last Admin: 03/08/17 10:49 Dose: 100 mg Pantoprazole Sodium (Protonix Inj) 40 mg IVP Q12H [facility] Last Admin: 03/08/17 04:26 Dose: 40 mg Rosuvastatin Calcium (Crestor) 10 mg PO HS [facility] Last Admin: 03/07/17 21:07 Dose: 10 mg Timolol Maleate (Timoptic 0.5% Oph Soln) 1 drop OU BID [facility] Last Admin: 03/08/17 10:51 Dose: 1 drop Vitamin B Complex/Vit C/Folic Acid (Nephro-Alonzo) 1 tab PO 0800 [facility] Last Admin: 03/08/17 08:33 Dose: 1 tab - Labs Labs: 03/07/17 10:03 03/07/17 10:03 PT 12.3 SECONDS (9.7-12.2) H 02/18/17 05:30 INR 1.1 02/18/17 05:30 APTT 30 SECONDS (21-34) 02/18/17 05:30 Attending/Attestation - Attestation I have personally seen and examined this patient.: Yes I have fully participated in the care of the patient.: Yes I have reviewed all pertinent clinical information, including history, physical exam and plan: Yes Notes (Text): 03/08/17 12:14 Agree with resident note and plan of care
[2017-03-06] MEDS: Multivitamin Vitamin B Complex (Nephro-Vite) Tab PO SCH (08:56)
[2017-03-06] MEDS: (Novolin R) Insulin Human Regular 100 units/ml vial SC SCH ×4 (08:57→22:19)
[2017-03-06] MEDS: Collagenase 250 Units/gm Ointment(30 gm) TOP SCH (11:35)
[2017-03-06] MEDS: Fluconazole IV 200mg/100 ml NS 100 ML IVPB SCH (11:36)
[2017-03-06] MEDS: Vancomycin 125 MG/5 ML SOLN (ORAL/RECTAL) PO SCH ×4 (11:39→22:19)
[2017-03-06] MEDS: Brimonidine 0.2% Opth Sol (5ml) OU SCH ×3 (12:15→17:38)
--- NOTE | 2017-03-06 14:36 | VASCLAB ---
PROCEDURE: Lower Extremity Venous Duplex Exam. HISTORY: Leg swelling PRIORS: None. TECHNIQUE: Bilateral common femoral, femoral, popliteal and posterior tibial, peroneal and great saphenous veins were evaluated. Flow was assessed with color Doppler, compressibility, assessment of phasic flow and augmentation response. Report prepared by NAN Covarrubias FINDINGS: RIGHT: 1. Common Femoral Vein: 1.1. Compressibility - Fully compressible: Thrombus - None : Flow - Phasic: Augmentation -Normal: Reflux - None. 2. Femoral Vein: 2.1. Compressibility - Fully compressible: Thrombus - None : Flow - Phasic: Augmentation -Normal: Reflux - None. 3. Popliteal Vein: 3.1. Compressibility - Fully compressible: Thrombus - None : Flow - Phasic: Augmentation -Normal: Reflux - None. 4. Posterior Tibial Vein: 4.1. Compressibility - Fully compressible: Thrombus - None: Flow - Phasic: Augmentation -Normal: Reflux - None. 5. Peroneal Vein: 5.1. Compressibility - Fully compressible: Thrombus - None: Flow - Phasic: Augmentation -Normal: Reflux - None. 6. Great Saphenous Vein: 6.1. Compressibility - Fully compressible: Thrombus - None: Flow - Phasic: Augmentation - Normal: Reflux - None. LEFT: 1. Common Femoral Vein: 1.1. Compressibility - Fully compressible: Thrombus - None: Flow - Phasic: Augmentation -Normal: Reflux - None. 2. Femoral Vein: 2.1. Compressibility - Fully compressible: Thrombus - None: Flow - Phasic: Augmentation -Normal: Reflux - None. 3. Popliteal Vein: 3.1. Compressibility - Fully compressible: Thrombus - None : Flow - Phasic: Augmentation -Normal: Reflux - None. 4. Posterior Tibial Vein: 4.1. Compressibility - Fully compressible: Thrombus - None: Flow - Phasic: Augmentation -Normal: Reflux - None. 5. Peroneal Vein: 5.1. Compressibility - Fully compressible: Thrombus - None: Flow - Phasic: Augmentation -Normal: Reflux - None. 6. Great Saphenous Vein: 6.1. Compressibility - Fully compressible: Thrombus - None: Flow - Phasic: Augmentation - Normal: Reflux - None. OTHER FINDINGS: Right: None significant. Left: None significant. IMPRESSION: Right: No evidence of deep or superficial vein thrombosis of the right lower extremity. Normal valve function noted of the right side. Left: No evidence of deep or superficial vein thrombosis of the left lower extremity. Normal valve function noted of the left side.
[2017-03-06] MEDS: HYDROmorphone 0.5 mg/0.5 ml ISec IVP PRN (17:36)
[2017-03-06] MEDS ORDERED: TPN#7 IV SCH (18:00)
[2017-03-06] MEDS: (Lantus) Insulin Glargine, Recombinant SC SCH (22:20)
[2017-03-06] MEDS: Latanoprost 2.5 ml Opht Soln OU SCH (22:22)
--- NOTE | 2017-03-07 07:41 | CP.PCM.PN ---
<Piyush Segura - Last Filed: 03/07/17 18:40> Subjective - Date & Time of Evaluation Date of Evaluation: 03/07/17 Time of Evaluation: 09:10 - Subjective Subjective: PGY-[address] Myrick Patient seen and examined at bedside. Patient resting comfortably. Full ROS unable to ascertain due to current verbal status. Patient better able to communicate with short syllable words and visual cues for her needs. Patient was witnessed saying no to the nurse when offered certain foods in anticipation for her dialysis later today. Patient recognizing care providers and family. Patient is able to follow basic commands. Objective - Vital Signs/Intake and Output Vital Signs (last 24 hours): Temp Pulse Resp BP Pulse Ox 98.4 F 69 22 139/65 97 03/06/17 23:15 03/06/17 23:15 03/06/17 23:15 03/06/17 23:15 03/06/17 23:15 Intake and Output: 03/07/17 03/07/17 06:59 18:59 Intake Total 1084 Output Total 0 Balance 1084 - Medications Medications: Current Medications Acetaminophen (Tylenol 325mg Tab) 650 mg PO Q6 PRN PRN Reason: Pain, Mild (1-3) Last Admin: 03/03/17 11:02 Dose: 650 mg Amlodipine Besylate (Norvasc) 5 mg PO DAILY [facility] Last Admin: 03/06/17 11:32 Dose: 5 mg Ascorbic Acid (Vitamin C 500 Mg Tab) 500 mg PO DAILY [facility] Last Admin: 03/06/17 11:32 Dose: 500 mg Brimonidine Tartrate (Alphagan 0.2% Opht) 1 ml OU TID [facility] Last Admin: 03/06/17 17:38 Dose: 1 drop Collagenase (Santyl) 0 gm TOP DAILY [facility] Last Admin: 03/06/17 11:35 Dose: Not Given Dextrose (Dextrose 50% Inj) 0 ml IV STAT PRN; Protocol PRN Reason: Hyglycemia Protocol Dextrose (Glutose 15) 0 gm PO ONCE PRN; Protocol PRN Reason: Hypoglycemia Protocol Ergocalciferol (Drisdol 50,000 Intl Units Cap) 1 cap PO QWK [facility] Last Admin: 03/05/17 14:54 Dose: 1 cap Furosemide (Lasix) 40 mg PO DAILY [facility] Last Admin: 03/06/17 11:31 Dose: 40 mg Glucagon (Glucagen Diagnostic Kit) 0 mg IM STAT PRN; Protocol PRN Reason: Hypoglycemia Protocol Heparin Sodium (Porcine) (Heparin) 3,700 units IVP TTS [facility] Last Admin: 03/05/17 12:51 Dose: 3,700 units Heparin Sodium (Porcine) (Heparin) 5,000 units SC Q8 [facility] Last Admin: 03/07/17 05:22 Dose: 5,000 units Hydralazine HCl (Apresoline) 25 mg PO BID [facility] Last Admin: 03/06/17 17:37 Dose: 25 mg Hydromorphone HCl (Dilaudid) 0.5 mg IVP Q6H PRN PRN Reason: Pain, severe (8-10) Last Admin: 03/06/17 17:36 Dose: 0.5 mg Tigecycline 50 mg/ Sodium (Chloride) 100 mls @ 100 mls/hr IVPB Q12H [facility] Last Admin: 03/06/17 20:03 Dose: 100 mls/hr Fluconazole (Diflucan Iv 200 Mg/100 Ml Ns) 100 mls @ 100 mls/hr IVPB DAILY [facility] Last Admin: 03/06/17 11:36 Dose: 100 mls/hr Fat Emulsion Intravenous (Intralipid 20%) 500 mls @ 42 mls/hr IV TuThSa [facility] Last Admin: 03/05/17 18:02 Dose: 42 mls/hr Sodium Chloride 35 meq/Potassium Chloride 30 meq/Magnesium Sulfate 6 meq/ Calcium Gluconate 4.5 meq/Heparin Sodium (Porcine) 1,000 units/ Multivitamins/ Vitamin C 10 ml/ Amino Acids 1,045.9052 mls @ 63 mls/hr IV .[id number] [facility] Stop: 03/07/17 10:36 Last Admin: 03/06/17 18:00 Dose: 63 mls/hr Sodium Chloride 35 meq/Potassium Chloride 30 meq/Magnesium Sulfate 6 meq/ Calcium Gluconate 4.5 meq/Heparin Sodium (Porcine) 1,000 units/ Amino Acids 1, 035.9052 mls @ 63 mls/hr IV .[id number] [facility] Stop: 03/07/17 17:59 Insulin Glargine (Lantus) 25 unit SC HS [facility] Last Admin: 03/06/17 22:20 Dose: 25 unit Insulin Human Regular (Novolin R) 0 unit SC ACHS [facility] PRN Reason: Protocol Last Admin: 03/06/17 22:19 Dose: 3 unit Latanoprost (Xalatan Opht) 0.02 ml OU HS [facility] Last Admin: 03/06/17 22:22 Dose: Not Given Losartan Potassium (Cozaar) 100 mg PO DAILY [facility] Last Admin: 03/06/17 11:31 Dose: 100 mg Pantoprazole Sodium (Protonix Inj) 40 mg IVP Q12H [facility] Last Admin: 03/07/17 04:17 Dose: 40 mg Rosuvastatin Calcium (Crestor) 10 mg PO HS [facility] Last Admin: 03/06/17 22:19 Dose: 10 mg Timolol Maleate (Timoptic 0.5% Ophth Soln) 1 drop OU BID [facility] Last Admin: 03/06/17 17:37 Dose: 1 drop Vancomycin HCl (Vancocin (Oral Or Rectal Use)) 125 mg PO QID [facility] Last Admin: 03/06/17 22:19 Dose: 125 mg Vitamin B Complex/Vit C/Folic Acid (Nephro-Alonzo) 1 tab PO 0800 [facility] Last Admin: 03/06/17 08:56 Dose: 1 tab - Labs Labs: 03/05/17 11:02 03/05/17 11:02 PT 12.3 SECONDS (9.7-12.2) H 02/18/17 05:30 INR 1.1 02/18/17 05:30 APTT 30 SECONDS (21-34) 02/18/17 05:30 - Constitutional Appears: No Acute Distress, Chronically Ill - Head Exam Head Exam: ATRAUMATIC, NORMOCEPHALIC - Eye Exam Eye Exam: EOMI, PERRL - ENT Exam ENT Exam: Mucous Membranes Moist - Respiratory Exam Respiratory Exam: Clear to Ausculation Bilateral. absent: Rales, Rhonchi, Wheezes - Cardiovascular Exam Cardiovascular Exam: REGULAR RHYTHM, +S1, +S2 - GI/Abdominal Exam GI & Abdominal Exam: Soft, Normal Bowel Sounds. absent: Tenderness - Extremities Exam Extremities Exam: absent: Calf Tenderness, Pedal Edema Additional comments: Chronic venous stasis changes bilaterally in the legs Left foot ulcer with 10x5 cm eschar spanning lateral plantar surface s/p debridement with wound vac in place for left foot wound. - Neurological Exam Neurological Exam: Alert, Awake - Skin Skin Exam: Dry, Pallor Assessment and Plan - Assessment and Plan (Free Text) Plan: 1. Non-Healing Left Heel Ulcer 03/02: Wound vac was replaced this afternoon. Gram positive cocci grew in the blood cultures. 03/01: POD #2 s/p debridement of L foot ulcer. Patient's WBC increased to 21.7 with left shift. Lactate 2.8--> repeat 1.9; recheck blood cultures today. Plan to change wound vac on foot tomorrow. 02/26/17: Patient underwent aortofemoral angiogram via right groin with selective catheterization of left anterior femoral artery. Balloon angioplasty of popliteal artery. Pathway arthrectomy and balloon angioplasty of anterior tibial artery. 02/27/17: Debridement of left foot ulcer with wound vac placed and cultures taken. Podiatry consult - Dr. Avery, help appreciated Infectious Disease Dr. Wellington consulted, help appreciated. Dr. Broussard on board, help appreciated. Low ext arterial duplex (02/04/17): R- occlusion R post tib artery, 50-75% stenosis right mid popliteal & proximal anterior tib arteries L- occlusion of left post tib artery, >75% stenosis left proximal ant tibial artery, 50-75% stenosis left distal SFA & proximal popliteal a. Vancomycin 1000 mg IV [facility] D/C'ed on 02/22/17 Cefepime 1 gm IV Q24H 02/18/17 to 02/23/17 Zyvox 600 mg PO BID started 02/22/17-02/23/17 Current antibiotics: Tygacil 100 mg loading dose on 02/25/17 and then continued as Tygacil 50 mg IV Q12H, Vanco 125mg PO QID, Flagyl 500mg IV q8h Abdominal Angiography 02/19/17: Severe bilateral lower extremity arterial runoff with 1 vessel likely remaining patent at the right. None is continuously patent at the left lower extremity [id number]. Widely patent abdominal aorta and iliac arterial system with moderate right and [id number] left femoral arterial disease. Severe bilateral popliteal artery arterial disease. Dr. Avery recommended Left BKA given his physical exam findings. Dr. Broussard also recommends the left BKA. He stated that even if the gangrenous portion is removed, it will not heal regardless of revascularization. As of 02/25, the patient's family has decided for her to stay and have Dr. Broussard clean the wound and improve the circulation in the leg. Before this, they were adamant about getting the patient to [facility] for hyperbaric therapy to try to salvage the leg. They still do not wish for amputation at this time. 2. Left Pleural Effusion 03/02: 500 cc clear fluid drained from the left pleura 03/01: Chest X-ray ordered showed left sided pleural effusion new since admission (see full report) f/u CT chest without contrast Ordered thoracentesis with fluid studies Consulted Grill Attendant Dr John- will f/u recommendations 3. C. Diff C. Diff studies positive Patient on isolation contact precaution Vancomycin 125 mg PO QID started--discontinued Dr. Wellington added Flagyl 500 mg IV [id number] repeat C diff and stool culture on 02/28--negative 4. Altered Mental Status 03/01: Patient obtunded this AM due to Gabapentin that was given night prior ( renally excreted). Gabapentin was discontinued. Repeat CT head without contrast was ordered this morning which was negative for acute infarct. Avoid pain medications that are renally excreted at this time. CT Head negative for Acute Territorial Infarction Patient found hypoglycemic by both and EMS with symptoms that suggest seizure episode. Patient is a poorly controlled diabetic. Monitor Accuchecks qACHS and Q4H Patient likely had an episode of neuroglycopenia and currently in post-ictal state. Due to post-ictal state, decision made to avoid narcotic pain medications. [employer] H[employer] MANAGER performed successful bedside swallow eval and recommended Pureed diet with thin liquids. Home PO meds restarted. Neurology consult Dr. Tanisha Aguirre, help appreciated. Thiamine 100 mg Q8H Could not get brain MRI which was neuro's recommendation due to 3 previous attempts where patient was moving too much. We do not wish to further sedate the patient due to her current mental state, so instead a repeat CT Head without contrast was done on 02/23/17. This CT head did not demonstrate any acute hemorrhagic or ischemic pathology. 5. End Stage Renal Disease on Hemodialysis On HD T,,S Dr. Ambrose nephrology consulted- help appreciated 6. Decreased oral intake 03/01: Patient unable to eat due to altered mental status. Status changed to NPO at this time. Starting TPN for nutrition to be given via PICC line. 03/05/17: TPN changed to increase proteins per dietary's recommendations. -Diflucan was added empirically by GI team. 7. Hypertension 03/02: Patient resumed oral BP medications today and tolerated without issue. 03/01: Patient normotensive, held oral BP medications due to NPO status. Given Lasix 20mg IV x1 dose. Will monitor BP q4h and given medications as needed. PO Home medications held * Norvasc 5 mg PO daily * Losartan 100 mg PO daily * Furosemide 40 mg PO daily * Held Bumex for now Monitor BP q6h and adjust meds as needed 8. Anemia of Chronic Disease Hgb stable Likely secondary to ESRD Dr. Ambrose put for IV ferlicet 125 mg and Procrit 10,000 units IV Monitor CBC daily 9. Diabetes 03/01: Patient having multiple episodes of hypoglycemia causing mental status change. Stopping standing insulin. See GALLEY COOK note for more information. Accuchecks qACHS [facility] Home Lantus 30 units SC HS- reduced to 15 units HS Lantus increased to 25 units on 03/06/[address] Myrick her sliding scale coverage for the last few days Crestor 10mg PO HS 10. Prophylactic Measures SCDs Heparin 5000 units SC Q8H 1:1 observation due to agitation. Patient tries to get out of bed. Fall precautions Palliative care consulted. Dietary consulted for recommendations for TPN Disposition: This patient has a very poor prognosis. The family wishes to try to save the leg despite multiple professional opinions on the necessity of an amputation. The family initially wished for the patient to go to [facility] where hyperbaric therapy is available in order to promote healing. They wished to be cared for by their personal pulmonary physical therapist Dr. Ware; however, Dr. Ware has become unavailable. So the family decided to remain at [facility] and attempt healing via vascular surgery to improve circulation and wound debridement of damaged tissue. They were repeatedly warned by multiple medical assistant dermatology of the risks associated with refusing a BKA and attempting to salvage the foot. The family verbalized understanding of the risks but still decide against a BKA at this time. Will discuss case with Dr. Ramez Segura PGY-1 <Benson Myrick Jr. - Last Filed: 03/08/17 12:15> Objective - Vital Signs/Intake and Output Vital Signs (last 24 hours): Temp Pulse Resp BP Pulse Ox 97.9 F 76 20 166/69 H 98 03/08/17 08:12 03/08/17 08:12 03/08/17 08:12 03/08/17 10:49 03/08/17 08:12 Intake and Output: 03/08/17 03/08/17 06:59 18:59 Intake Total 770 Balance 770 - Medications Medications: Current Medications Acetaminophen (Tylenol 325mg Tab) 650 mg PO Q6 PRN PRN Reason: Pain, Mild (1-3) Last Admin: 03/07/17 18:20 Dose: 650 mg Amlodipine Besylate (Norvasc) 5 mg PO DAILY [facility] Last Admin: 03/08/17 10:50 Dose: 5 mg Ascorbic Acid (Vitamin C 500 Mg Tab) 500 mg PO DAILY [facility] Last Admin: 03/08/17 10:49 Dose: 500 mg Brimonidine Tartrate (Alphagan 0.2% Opht) 1 ml OU TID [facility] Last Admin: 03/08/17 10:52 Dose: 1 drop Collagenase (Santyl) 0 gm TOP DAILY [facility] Last Admin: 03/08/17 10:50 Dose: Not Given Dextrose (Dextrose 50% Inj) 0 ml IV STAT PRN; Protocol PRN Reason: Hyglycemia Protocol Dextrose (Glutose 15) 0 gm PO ONCE PRN; Protocol PRN Reason: Hypoglycemia Protocol Epoetin Maxwell (Procrit) 10,000 unit IV TTS [facility] Last Admin: 03/07/17 11:29 Dose: 10,000 unit Ergocalciferol (Drisdol 50,000 Intl Units Cap) 1 cap PO QWK [facility] Last Admin: 03/05/17 14:54 Dose: 1 cap Furosemide (Lasix) 40 mg PO DAILY [facility] Last Admin: 03/08/17 10:49 Dose: 40 mg Glucagon (Glucagen Diagnostic Kit) 0 mg IM STAT PRN; Protocol PRN Reason: Hypoglycemia Protocol Heparin Sodium (Porcine) (Heparin) 5,000 units SC Q8 [facility] Last Admin: 03/08/17 04:59 Dose: 5,000 units Heparin Sodium (Porcine) (Heparin) 3,700 units IVP TTS [facility] Stop: 03/24/17 23:59 Last Admin: 03/07/17 11:20 Dose: 3,700 units Hydralazine HCl (Apresoline) 25 mg PO BID [facility] Last Admin: 03/08/17 10:49 Dose: 25 mg Hydromorphone HCl (Dilaudid) 0.5 mg IVP Q6H PRN PRN Reason: Pain, severe (8-10) Last Admin: 03/08/17 10:50 Dose: 0.5 mg Tigecycline 50 mg/ Sodium (Chloride) 100 mls @ 100 mls/hr IVPB Q12H [facility] Last Admin: 03/08/17 08:33 Dose: 100 mls/hr Fluconazole (Diflucan Iv 200 Mg/100 Ml Ns) 100 mls @ 100 mls/hr IVPB DAILY [facility] Last Admin: 03/08/17 11:03 Dose: 100 mls/hr Sodium Chloride 35 meq/Potassium Chloride 30 meq/Magnesium Sulfate 6 meq/ Calcium Gluconate 4.5 meq/Heparin Sodium (Porcine) 1,000 units/ Amino Acids 1, 035.9052 mls @ 63 mls/hr IV .[id number] [facility] Stop: 03/08/17 18:00 Last Admin: 03/08/17 11:03 Dose: 63 mls/hr Sodium Chloride 35 meq/Potassium Chloride 30 meq/Magnesium Sulfate 6 meq/ Calcium Gluconate 4.5 meq/Heparin Sodium (Porcine) 1,000 units/ Amino Acids 1, 035.9052 mls @ 63 mls/hr IV .[id number] Stop: 03/09/17 10:26 Sodium Chloride 35 meq/Potassium Chloride 30 meq/Magnesium Sulfate 6 meq/ Calcium Gluconate 4.5 meq/Heparin Sodium (Porcine) 1,000 units/ Amino Acids 1, 035.9052 mls @ 63 mls/hr IV .[id number] [facility] Stop: 03/09/17 17:59 Insulin Glargine (Lantus) 25 unit SC HS [facility] Last Admin: 03/07/17 21:03 Dose: 25 unit Insulin Human Regular (Novolin R) 0 unit SC ACHS [facility] PRN Reason: Protocol Last Admin: 03/08/17 08:33 Dose: 12 unit Latanoprost (Xalatan Opht) 0.02 ml OU HS [facility] Last Admin: 03/07/17 21:13 Dose: Not Given Losartan Potassium (Cozaar) 100 mg PO DAILY [facility] Last Admin: 03/08/17 10:49 Dose: 100 mg Pantoprazole Sodium (Protonix Inj) 40 mg IVP Q12H [facility] Last Admin: 03/08/17 04:26 Dose: 40 mg Rosuvastatin Calcium (Crestor) 10 mg PO HS [facility] Last Admin: 03/07/17 21:07 Dose: 10 mg Timolol Maleate (Timoptic 0.5% Ophth Soln) 1 drop OU BID [facility] Last Admin: 03/08/17 10:51 Dose: 1 drop Vitamin B Complex/Vit C/Folic Acid (Nephro-Alonzo) 1 tab PO 0800 [facility] Last Admin: 03/08/17 08:33 Dose: 1 tab - Labs Labs: 03/07/17 10:03 03/07/17 10:03 PT 12.3 SECONDS (9.7-12.2) H 02/18/17 05:30 INR 1.1 02/18/17 05:30 APTT 30 SECONDS (21-34) 02/18/17 05:30 Attending/Attestation - Attestation I have personally seen and examined this patient.: Yes I have fully participated in the care of the patient.: Yes I have reviewed all pertinent clinical information, including history, physical exam and plan: Yes Notes (Text): 03/08/17 12:15 Agree with resident note and plan of care
[2017-03-07] MEDS: (Novolin R) Insulin Human Regular 100 units/ml vial SC SCH ×4 (07:49→21:08)
[2017-03-07] MEDS: Multivitamin Vitamin B Complex (Nephro-Vite) Tab PO SCH (07:49)
--- NOTE | 2017-03-07 10:07 | CP.PCM.PN ---
Subjective - Date & Time of Evaluation Date of Evaluation: 03/06/17 Time of Evaluation: 13:00 - Subjective Subjective: SEEN ON RENAL F/U [facility] ON BED SIDE .. ON HD T T S Objective - Vital Signs/Intake and Output Vital Signs (last 24 hours): Temp Pulse Resp BP Pulse Ox 98.8 F 73 20 130/76 96 03/07/17 08:00 03/07/17 08:00 03/07/17 08:00 03/07/17 08:00 03/07/17 08:00 Intake and Output: 03/07/17 03/07/17 06:59 18:59 Intake Total 1084 Output Total 0 Balance 1084 - Medications Medications: Current Medications Acetaminophen (Tylenol 325mg Tab) 650 mg PO Q6 PRN PRN Reason: Pain, Mild (1-3) Last Admin: 03/03/17 11:02 Dose: 650 mg Amlodipine Besylate (Norvasc) 5 mg PO DAILY [facility] Last Admin: 03/06/17 11:32 Dose: 5 mg Ascorbic Acid (Vitamin C 500 Mg Tab) 500 mg PO DAILY [facility] Last Admin: 03/06/17 11:32 Dose: 500 mg Brimonidine Tartrate (Alphagan 0.2% Opht) 1 ml OU TID [facility] Last Admin: 03/06/17 17:38 Dose: 1 drop Collagenase (Santyl) 0 gm TOP DAILY [facility] Last Admin: 03/06/17 11:35 Dose: Not Given Dextrose (Dextrose 50% Inj) 0 ml IV STAT PRN; Protocol PRN Reason: Hyglycemia Protocol Dextrose (Glutose 15) 0 gm PO ONCE PRN; Protocol PRN Reason: Hypoglycemia Protocol Ergocalciferol (Drisdol 50,000 Intl Units Cap) 1 cap PO QWK [facility] Last Admin: 03/05/17 14:54 Dose: 1 cap Furosemide (Lasix) 40 mg PO DAILY [facility] Last Admin: 03/06/17 11:31 Dose: 40 mg Glucagon (Glucagen Diagnostic Kit) 0 mg IM STAT PRN; Protocol PRN Reason: Hypoglycemia Protocol Heparin Sodium (Porcine) (Heparin) 3,700 units IVP TTS [facility] Last Admin: 03/05/17 12:51 Dose: 3,700 units Heparin Sodium (Porcine) (Heparin) 5,000 units SC Q8 [facility] Last Admin: 03/07/17 05:22 Dose: 5,000 units Hydralazine HCl (Apresoline) 25 mg PO BID [facility] Last Admin: 03/06/17 17:37 Dose: 25 mg Hydromorphone HCl (Dilaudid) 0.5 mg IVP Q6H PRN PRN Reason: Pain, severe (8-10) Last Admin: 03/06/17 17:36 Dose: 0.5 mg Tigecycline 50 mg/ Sodium (Chloride) 100 mls @ 100 mls/hr IVPB Q12H [facility] Last Admin: 03/07/17 07:50 Dose: 100 mls/hr Fluconazole (Diflucan Iv 200 Mg/100 Ml Ns) 100 mls @ 100 mls/hr IVPB DAILY [facility] Last Admin: 03/06/17 11:36 Dose: 100 mls/hr Fat Emulsion Intravenous (Intralipid 20%) 500 mls @ 42 mls/hr IV TuThSa [facility] Last Admin: 03/05/17 18:02 Dose: 42 mls/hr Sodium Chloride 35 meq/Potassium Chloride 30 meq/Magnesium Sulfate 6 meq/ Calcium Gluconate 4.5 meq/Heparin Sodium (Porcine) 1,000 units/ Multivitamins/ Vitamin C 10 ml/ Amino Acids 1,045.9052 mls @ 63 mls/hr IV .[id number] [facility] Stop: 03/07/17 10:36 Last Admin: 03/06/17 18:00 Dose: 63 mls/hr Sodium Chloride 35 meq/Potassium Chloride 30 meq/Magnesium Sulfate 6 meq/ Calcium Gluconate 4.5 meq/Heparin Sodium (Porcine) 1,000 units/ Amino Acids 1, 035.9052 mls @ 63 mls/hr IV .[id number] [facility] Stop: 03/07/17 17:59 Sodium Chloride 35 meq/Potassium Chloride 30 meq/Magnesium Sulfate 6 meq/ Calcium Gluconate 4.5 meq/Heparin Sodium (Porcine) 1,000 units/ Multivitamins/ Vitamin C 10 ml/ Amino Acids 1,045.9052 mls @ 63 mls/hr IV .[id number] [facility] Stop: 03/08/17 10:00 Sodium Chloride 35 meq/Potassium Chloride 30 meq/Magnesium Sulfate 6 meq/ Calcium Gluconate 4.5 meq/Heparin Sodium (Porcine) 1,000 units/ Amino Acids 1, 035.9052 mls @ 63 mls/hr IV .[id number] [facility] Stop: 03/08/17 18:00 Insulin Glargine (Lantus) 25 unit SC HS [facility] Last Admin: 03/06/17 22:20 Dose: 25 unit Insulin Human Regular (Novolin R) 0 unit SC ACHS [facility] PRN Reason: Protocol Last Admin: 03/07/17 07:49 Dose: 10 unit Latanoprost (Xalatan Opht) 0.02 ml OU HS [facility] Last Admin: 03/06/17 22:22 Dose: Not Given Losartan Potassium (Cozaar) 100 mg PO DAILY [facility] Last Admin: 03/06/17 11:31 Dose: 100 mg Pantoprazole Sodium (Protonix Inj) 40 mg IVP Q12H [facility] Last Admin: 03/07/17 04:17 Dose: 40 mg Rosuvastatin Calcium (Crestor) 10 mg PO HS [facility] Last Admin: 03/06/17 22:19 Dose: 10 mg Timolol [facility]ate [facility] 1 drop OU BID [facility] Last Admin: 03/06/17 17:37 Dose: 1 drop Vancomycin HCl (Vancocin (Oral Or Rectal Use)) 125 mg PO QID [facility] Last Admin: 03/06/17 22:19 Dose: 125 mg Vitamin B Complex/Vit C/Folic Acid (Nephro-Alonzo) 1 tab PO 0800 [facility] Last Admin: 03/07/17 07:49 Dose: 1 tab - Labs Labs: 03/05/17 11:02 03/05/17 11:02 PT 12.3 SECONDS (9.7-12.2) H 02/18/17 05:30 INR 1.1 02/18/17 05:30 APTT 30 SECONDS (21-34) 02/18/17 05:30 Assessment and Plan - Assessment and Plan (Free Text) Assessment: C/O CURRENT CARE
[2017-03-07 10:11] LABS: BASO % 0.2 % (0.0-2.0); EOS # 0.3 K/uL (0.0-0.7); EOS % 1.7 % (0.0-4.0); HEMATOCRIT 28.1 % (34.0-47.0); LYMPH # 1.7 K/uL (1.0-4.3); LYMPH % 9.6 % (20.0-40.0); MEAN CELL VOLUME 93.4 fL (81.0-99.0); MEAN CORPUSCULAR HEMOGLOBIN 28.8 pg (27.0-31.0); MEAN CORPUSCULAR HGB CONC 30.8 g/dL (33.0-37.0); MEAN PLATELET VOLUME 9.7 fL (7.2-11.7); MONO # 1.7 K/uL (0.0-0.8); MONO % 9.4 % (0.0-10.0); PLATELET COUNT 223 K/uL (130-400); RED CELL DISTRIBUTION WIDTH 23.1 % (11.5-14.5); WHITE BLOOD COUNT 17.7 K/uL (4.8-10.8)
[2017-03-07 10:28] LABS: POTASSIUM 3.7 mmol/L (3.6-5.2)
--- NOTE | 2017-03-07 10:28 | CP.PCM.PN ---
Subjective - Date & Time of Evaluation Date of Evaluation: 03/07/17 Time of Evaluation: 09:40 - Subjective Subjective: F/U ulcer, dysphagia, c diff RN reports poor p.o. intake. Pt is confused. No report of bleeding, RB, melena, fever, SZ, hematuria, hemoptysis, cough Objective - Vital Signs/Intake and Output Vital Signs (last 24 hours): Temp Pulse Resp BP Pulse Ox 98.8 F 74 28 H 142/36 L 98 03/07/17 08:00 03/07/17 10:05 03/07/17 09:50 03/07/17 10:05 03/07/17 09:20 Intake and Output: 03/07/17 03/07/17 06:59 18:59 Intake Total 1084 Output Total 0 Balance 1084 - Medications Medications: Current Medications Acetaminophen (Tylenol 325mg Tab) 650 mg PO Q6 PRN PRN Reason: Pain, Mild (1-3) Last Admin: 03/03/17 11:02 Dose: 650 mg Amlodipine Besylate (Norvasc) 5 mg PO DAILY [facility] Last Admin: 03/06/17 11:32 Dose: 5 mg Ascorbic Acid (Vitamin C 500 Mg Tab) 500 mg PO DAILY [facility] Last Admin: 03/06/17 11:32 Dose: 500 mg Brimonidine Tartrate (Alphagan 0.2% Opht) 1 ml OU TID [facility] Last Admin: 03/06/17 17:38 Dose: 1 drop Collagenase (Santyl) 0 gm TOP DAILY [facility] Last Admin: 03/06/17 11:35 Dose: Not Given Dextrose (Dextrose 50% Inj) 0 ml IV STAT PRN; Protocol PRN Reason: Hyglycemia Protocol Dextrose (Glutose 15) 0 gm PO ONCE PRN; Protocol PRN Reason: Hypoglycemia Protocol Ergocalciferol (Drisdol 50,000 Intl Units Cap) 1 cap PO QWK [facility] Last Admin: 03/05/17 14:54 Dose: 1 cap Furosemide (Lasix) 40 mg PO DAILY [facility] Last Admin: 03/06/17 11:31 Dose: 40 mg Glucagon (Glucagen Diagnostic Kit) 0 mg IM STAT PRN; Protocol PRN Reason: Hypoglycemia Protocol Heparin Sodium (Porcine) (Heparin) 3,700 units IVP TTS [facility] Last Admin: 03/05/17 12:51 Dose: 3,700 units Heparin Sodium (Porcine) (Heparin) 5,000 units SC Q8 [facility] Last Admin: 03/07/17 05:22 Dose: 5,000 units Hydralazine HCl (Apresoline) 25 mg PO BID [facility] Last Admin: 03/06/17 17:37 Dose: 25 mg Hydromorphone HCl (Dilaudid) 0.5 mg IVP Q6H PRN PRN Reason: Pain, severe (8-10) Last Admin: 03/06/17 17:36 Dose: 0.5 mg Tigecycline 50 mg/ Sodium (Chloride) 100 mls @ 100 mls/hr IVPB Q12H [facility] Last Admin: 03/07/17 07:50 Dose: 100 mls/hr Fluconazole (Diflucan Iv 200 Mg/100 Ml Ns) 100 mls @ 100 mls/hr IVPB DAILY [facility] Last Admin: 03/06/17 11:36 Dose: 100 mls/hr Fat Emulsion Intravenous (Intralipid 20%) 500 mls @ 42 mls/hr IV TuThSa [facility] Last Admin: 03/05/17 18:02 Dose: 42 mls/hr Sodium Chloride 35 meq/Potassium Chloride 30 meq/Magnesium Sulfate 6 meq/ Calcium Gluconate 4.5 meq/Heparin Sodium (Porcine) 1,000 units/ Multivitamins/ Vitamin C 10 ml/ Amino Acids 1,045.9052 mls @ 63 mls/hr IV .[id number] [facility] Stop: 03/07/17 10:36 Last Admin: 03/06/17 18:00 Dose: 63 mls/hr Sodium Chloride 35 meq/Potassium Chloride 30 meq/Magnesium Sulfate 6 meq/ Calcium Gluconate 4.5 meq/Heparin Sodium (Porcine) 1,000 units/ Amino Acids 1, 035.9052 mls @ 63 mls/hr IV .[id number] [facility] Stop: 03/07/17 17:59 Sodium Chloride 35 meq/Potassium Chloride 30 meq/Magnesium Sulfate 6 meq/ Calcium Gluconate 4.5 meq/Heparin Sodium (Porcine) 1,000 units/ Multivitamins/ Vitamin C 10 ml/ Amino Acids 1,045.9052 mls @ 63 mls/hr IV .[id number] [facility] Stop: 03/08/17 10:00 Sodium Chloride 35 meq/Potassium Chloride 30 meq/Magnesium Sulfate 6 meq/ Calcium Gluconate 4.5 meq/Heparin Sodium (Porcine) 1,000 units/ Amino Acids 1, 035.9052 mls @ 63 mls/hr IV .[id number] [facility] Stop: 03/08/17 18:00 Insulin Glargine (Lantus) 25 unit SC HS [facility] Last Admin: 03/06/17 22:20 Dose: 25 unit Insulin Human Regular (Novolin R) 0 unit SC ACHS [facility] PRN Reason: Protocol Last Admin: 03/07/17 07:49 Dose: 10 unit Latanoprost (Xalatan Opht) 0.02 ml OU HS [facility] Last Admin: 03/06/17 22:22 Dose: Not Given Losartan Potassium (Cozaar) 100 mg PO DAILY [facility] Last Admin: 03/06/17 11:31 Dose: 100 mg Pantoprazole Sodium (Protonix Inj) 40 mg IVP Q12H [facility] Last Admin: 03/07/17 04:17 Dose: 40 mg Rosuvastatin Calcium (Crestor) 10 mg PO HS [facility] Last Admin: 03/06/17 22:19 Dose: 10 mg Timolol Maleate (Timoptic 0.5% Oph Soln) 1 drop OU BID [facility] Last Admin: 03/06/17 17:37 Dose: 1 drop Vancomycin HCl (Vancocin (Oral Or Rectal Use)) 125 mg PO QID [facility] Last Admin: 03/06/17 22:19 Dose: 125 mg Vitamin B Complex/Vit C/Folic Acid (Nephro-Alonzo) 1 tab PO 0800 [facility] Last Admin: 03/07/17 07:49 Dose: 1 tab - Labs Labs: 03/07/17 10:03 03/05/17 11:02 PT 12.3 SECONDS (9.7-12.2) H 02/18/17 05:30 INR 1.1 02/18/17 05:30 APTT 30 SECONDS (21-34) 02/18/17 05:30 - Constitutional Appears: Non-toxic - Respiratory Exam Respiratory Exam: Rhonchi - Cardiovascular Exam Cardiovascular Exam: RRR - GI/Abdominal Exam GI & Abdominal Exam: Soft, Normal Bowel Sounds. absent: Tenderness - Extremities Exam Extremities Exam: absent: Calf Tenderness - Neurological Exam Neurological Exam: Alert. absent: Oriented x3 Assessment and Plan (1) Elevated WBC count Assessment & Plan: Had c diff- repeat is negative. Status: Acute (2) PUD (peptic ulcer disease) Assessment & Plan: On EGD Status: Acute (3) Change in mental status Status: Acute (4) Clostridium difficile colitis Assessment & Plan: treated Status: Acute (5) Dysphagia Assessment & Plan: esophagitis. Status: Acute (6) End stage renal disease on dialysis Assessment & Plan: Cr 2.5- HD Status: Acute (7) IDDM (insulin dependent diabetes mellitus) Status: Chronic (8) Heel ulcer Assessment & Plan: non -healing- left Status: Acute (9) Pleural effusion Status: Acute (10) Pericardial effusion Status: Acute (11) Hyponatremia Status: Acute (12) UTI (urinary tract infection) Status: Acute (13) Nutrition disorder Assessment & Plan: Poor p.o. Patient is not a PEG candidate with these medical issues. Status: Acute
[2017-03-07 10:30] LABS: ALB/GLOB RATIO 0.7 (1.0-2.1); BILIRUBIN,TOTAL 0.4 mg/dL (0.2-1.3); PHOSPHOROUS 2.8 mg/dL (2.5-4.5); TOTAL PROTEIN 4.6 g/dL (6.3-8.3)
[2017-03-07 10:31] LABS: CALCIUM 7.6 mg/dl (8.6-10.4); MAGNESIUM 1.8 mg/dL (1.6-2.3)
[2017-03-07] MEDS ORDERED: TPN#8 IV SCH (10:37)
[2017-03-07] MEDS ORDERED: Epoetin Alfa 10,000 unit/ml Dialysis SC SCH (11:13)
[2017-03-07 11:14] LABS: EOSINOPHIL 5 % (0-4); NEUTROPHIL 76 % (50-75); TOTAL CELLS COUNTED 100
[2017-03-07] MEDS: Brimonidine 0.2% Opth Sol (5ml) OU SCH ×3 (11:14→18:47)
[2017-03-07] MEDS: Collagenase 250 Units/gm Ointment(30 gm) TOP SCH (11:15)
[2017-03-07] MEDS: Vancomycin 125 MG/5 ML SOLN (ORAL/RECTAL) PO SCH ×3 (11:15→18:19)
[2017-03-07] MEDS: Epoetin Alfa 10,000 unit/ml Dialysis IV SCH (11:29)
[2017-03-07] MEDS: Fluconazole IV 200mg/100 ml NS 100 ML IVPB SCH (13:21)
[2017-03-07] MEDS: HYDROmorphone 0.5 mg/0.5 ml ISec IVP PRN ×2 (14:51→21:04)
--- NOTE | 2017-03-07 17:52 | CP.PCM.PN ---
Subjective - Date & Time of Evaluation Date of Evaluation: 03/07/17 Time of Evaluation: 17:50 - Subjective Subjective: on hd tts had hd today vss alize proc still in isolation epo renewed cont rx and support Objective - Vital Signs/Intake and Output Vital Signs (last 24 hours): Temp Pulse Resp BP Pulse Ox 98.3 F 71 20 128/70 97 03/07/17 15:43 03/07/17 15:43 03/07/17 15:43 03/07/17 15:43 03/07/17 15:43 Intake and Output: 03/07/17 03/07/17 06:59 18:59 Intake Total 1084 Output Total 0 Balance 1084 - Medications Medications: Current Medications Acetaminophen (Tylenol 325mg Tab) 650 mg PO Q6 PRN PRN Reason: Pain, Mild (1-3) Last Admin: 03/03/17 11:02 Dose: 650 mg Amlodipine Besylate (Norvasc) 5 mg PO DAILY [facility] Last Admin: 03/07/17 13:27 Dose: 5 mg Ascorbic Acid (Vitamin C 500 Mg Tab) 500 mg PO DAILY [facility] Last Admin: 03/07/17 13:29 Dose: 500 mg Brimonidine Tartrate (Alphagan 0.2% Opht) 1 ml OU TID [facility] Last Admin: 03/07/17 13:23 Dose: 1 drop Collagenase (Santyl) 0 gm TOP DAILY [facility] Last Admin: 03/07/17 11:15 Dose: Not Given Dextrose (Dextrose 50% Inj) 0 ml IV STAT PRN; Protocol PRN Reason: Hyglycemia Protocol Dextrose (Glutose 15) 0 gm PO ONCE PRN; Protocol PRN Reason: Hypoglycemia Protocol Epoetin Maxwell (Procrit) 10,000 unit IV TTS [facility] Last Admin: 03/07/17 11:29 Dose: 10,000 unit Ergocalciferol (Drisdol 50,000 Intl Units Cap) 1 cap PO QWK [facility] Last Admin: 03/05/17 14:54 Dose: 1 cap Furosemide (Lasix) 40 mg PO DAILY [facility] Last Admin: 03/07/17 13:25 Dose: 40 mg Glucagon (Glucagen Diagnostic Kit) 0 mg IM STAT PRN; Protocol PRN Reason: Hypoglycemia Protocol Heparin Sodium (Porcine) (Heparin) 5,000 units SC Q8 [facility] Last Admin: 03/07/17 13:24 Dose: 5,000 units Heparin Sodium (Porcine) (Heparin) 3,700 units IVP TTS [facility] Stop: 03/24/17 23:59 Last Admin: 03/07/17 11:20 Dose: 3,700 units Hydralazine HCl (Apresoline) 25 mg PO BID [facility] Last Admin: 03/07/17 11:14 Dose: Not Given Hydromorphone HCl (Dilaudid) 0.5 mg IVP Q6H PRN PRN Reason: Pain, severe (8-10) Last Admin: 03/07/17 14:51 Dose: 0.5 mg Tigecycline 50 mg/ Sodium (Chloride) 100 mls @ 100 mls/hr IVPB Q12H [facility] Last Admin: 03/07/17 07:50 Dose: 100 mls/hr Fluconazole (Diflucan Iv 200 Mg/100 Ml Ns) 100 mls @ 100 mls/hr IVPB DAILY [facility] Last Admin: 03/07/17 13:21 Dose: 100 mls/hr Fat Emulsion Intravenous (Intralipid 20%) 500 mls @ 42 mls/hr IV TuThSa [facility] Last Admin: 03/05/17 18:02 Dose: 42 mls/hr Sodium Chloride 35 meq/Potassium Chloride 30 meq/Magnesium Sulfate 6 meq/ Calcium Gluconate 4.5 meq/Heparin Sodium (Porcine) 1,000 units/ Amino Acids 1, 035.9052 mls @ 63 mls/hr IV .[id number] [facility] Stop: 03/07/17 17:59 Last Admin: 03/07/17 14:20 Dose: 63 mls/hr Sodium Chloride 35 meq/Potassium Chloride 30 meq/Magnesium Sulfate 6 meq/ Calcium Gluconate 4.5 meq/Heparin Sodium (Porcine) 1,000 units/ Multivitamins/ Vitamin C 10 ml/ Amino Acids 1,045.9052 mls @ 63 mls/hr IV .[id number] [facility] Stop: 03/08/17 10:00 Sodium Chloride 35 meq/Potassium Chloride 30 meq/Magnesium Sulfate 6 meq/ Calcium Gluconate 4.5 meq/Heparin Sodium (Porcine) 1,000 units/ Amino Acids 1, 035.9052 mls @ 63 mls/hr IV .[id number] [facility] Stop: 03/08/17 18:00 Insulin Glargine (Lantus) 25 unit SC [facility] Last Admin: 03/06/17 22:20 Dose: 25 unit Insulin Human Regular (Novolin R) 0 unit SC ACHS [facility] PRN Reason: Protocol Last Admin: 03/07/17 16:50 Dose: Not Given Latanoprost (Xalatan Opht) 0.02 ml OU HS [facility] Last Admin: 03/06/17 22:22 Dose: Not Given Losartan Potassium (Cozaar) 100 mg PO DAILY [facility] Last Admin: 03/07/17 13:24 Dose: 100 mg Pantoprazole Sodium (Protonix Inj) 40 mg IVP Q12H [facility] Last Admin: 03/07/17 15:44 Dose: 40 mg Rosuvastatin Calcium (Crestor) 10 mg PO HS [facility] Last Admin: 03/06/17 22:19 Dose: 10 mg Timolol Maleate (Timoptic 0.5% Oph Soln) 1 drop OU BID [facility] Last Admin: 03/07/17 13:28 Dose: 1 drop Vancomycin HCl (Vancocin (Oral Or Rectal Use)) 125 mg PO QID [facility] Last Admin: 03/07/17 13:29 Dose: 125 mg Vitamin B Complex/Vit C/Folic Acid (Nephro-Alonzo) 1 tab PO 0800 [facility] Last Admin: 03/07/17 07:49 Dose: 1 tab - Labs Labs: 03/07/17 10:03 03/07/17 10:03 PT 12.3 SECONDS (9.7-12.2) H 02/18/17 05:30 INR 1.1 02/18/17 05:30 APTT 30 SECONDS (21-34) 02/18/17 05:30 - Constitutional Appears: Non-toxic - Head Exam Head Exam: NORMAL INSPECTION - Eye Exam Eye Exam: Normal appearance - ENT Exam ENT Exam: Mucous Membranes Moist - Neck Exam Neck Exam: Normal Inspection - Respiratory Exam Respiratory Exam: NORMAL BREATHING PATTERN - Cardiovascular Exam Cardiovascular Exam: REGULAR RHYTHM - GI/Abdominal Exam GI & Abdominal Exam: Soft - Extremities Exam Extremities Exam: Normal Inspection - Neurological Exam Neurological Exam: Awake - Skin Skin Exam: Dry, Warm Assessment and Plan - Assessment and Plan (Free Text) Plan: hd tts discussed w family at bedside
[2017-03-07] MEDS ORDERED: TPN IV SCH (18:00)
[2017-03-07] MEDS: Fat Emulsion 20% IV 500 ML IV SCH (18:19)
[2017-03-07] MEDS: (Lantus) Insulin Glargine, Recombinant SC SCH (21:03)
[2017-03-07] MEDS: Latanoprost 2.5 ml Opht Soln OU SCH (21:13)
--- NOTE | 2017-03-08 07:19 | CP.PCM.PN ---
<Piyush Segura - Last Filed: 03/08/17 22:08> Subjective - Date & Time of Evaluation Date of Evaluation: 03/08/17 Time of Evaluation: 11:30 - Subjective Subjective: PGY-[address] Myrick Patient seen and examined at bedside. Patient is still non-verbal but can communicate her needs with family and care providers. Patient seems to still be in pain from her leg. Wound Vac was changed at the bedside with Dr. Myrick, rn surgical pcu, myself, and the patient's at bedside. Objective - Vital Signs/Intake and Output Vital Signs (last 24 hours): Temp Pulse Resp BP Pulse Ox 99.1 F 71 20 139/48 L 93 L 03/07/17 23:15 03/07/17 23:15 03/07/17 23:15 03/07/17 23:15 03/07/17 23:15 Intake and Output: 03/08/17 03/08/17 06:59 18:59 Intake Total 770 Balance 770 - Medications Medications: Current Medications Acetaminophen (Tylenol 325mg Tab) 650 mg PO Q6 PRN PRN Reason: Pain, Mild (1-3) Last Admin: 03/07/17 18:20 Dose: 650 mg Amlodipine Besylate (Norvasc) 5 mg PO DAILY [facility] Last Admin: 03/07/17 13:27 Dose: 5 mg Ascorbic Acid (Vitamin C 500 Mg Tab) 500 mg PO DAILY [facility] Last Admin: 03/07/17 13:29 Dose: 500 mg Brimonidine Tartrate (Alphagan 0.2% Opht) 1 ml OU TID [facility] Last Admin: 03/07/17 18:47 Dose: 1 drop Collagenase (Santyl) 0 gm TOP DAILY [facility] Last Admin: 03/07/17 11:15 Dose: Not Given Dextrose (Dextrose 50% Inj) 0 ml IV STAT PRN; Protocol PRN Reason: Hyglycemia Protocol Dextrose (Glutose 15) 0 gm PO ONCE PRN; Protocol PRN Reason: Hypoglycemia Protocol Epoetin Maxwell (Procrit) 10,000 unit IV TTS [facility] Last Admin: 03/07/17 11:29 Dose: 10,000 unit Ergocalciferol (Drisdol 50,000 Intl Units Cap) 1 cap PO QWK [facility] Last Admin: 03/05/17 14:54 Dose: 1 cap Furosemide (Lasix) 40 mg PO DAILY [facility] Last Admin: 03/07/17 13:25 Dose: 40 mg Glucagon (Glucagen Diagnostic Kit) 0 mg IM STAT PRN; Protocol PRN Reason: Hypoglycemia Protocol Heparin Sodium (Porcine) (Heparin) 5,000 units SC Q8 [facility] Last Admin: 03/08/17 04:59 Dose: 5,000 units Heparin Sodium (Porcine) (Heparin) 3,700 units IVP TTS [facility] Stop: 03/24/17 23:59 Last Admin: 03/07/17 11:20 Dose: 3,700 units Hydralazine HCl (Apresoline) 25 mg PO BID [facility] Last Admin: 03/07/17 18:19 Dose: 25 mg Hydromorphone HCl (Dilaudid) 0.5 mg IVP Q6H PRN PRN Reason: Pain, severe (8-10) Last Admin: 03/07/17 21:04 Dose: 0.5 mg Tigecycline 50 mg/ Sodium (Chloride) 100 mls @ 100 mls/hr IVPB Q12H [facility] Last Admin: 03/07/17 21:00 Dose: 100 mls/hr Fluconazole (Diflucan Iv 200 Mg/100 Ml Ns) 100 mls @ 100 mls/hr IVPB DAILY [facility] Last Admin: 03/07/17 13:21 Dose: 100 mls/hr Sodium Chloride 35 meq/Potassium Chloride 30 meq/Magnesium Sulfate 6 meq/ Calcium Gluconate 4.5 meq/Heparin Sodium (Porcine) 1,000 units/ Multivitamins/ Vitamin C 10 ml/ Amino Acids 1,045.9052 mls @ 63 mls/hr IV .[id number] [facility] Stop: 03/08/17 10:00 Last Admin: 03/07/17 18:19 Dose: 63 mls/hr Sodium Chloride 35 meq/Potassium Chloride 30 meq/Magnesium Sulfate 6 meq/ Calcium Gluconate 4.5 meq/Heparin Sodium (Porcine) 1,000 units/ Amino Acids 1, 035.9052 mls @ 63 mls/hr IV .[id number] [facility] Stop: 03/08/17 18:00 Insulin Glargine (Lantus) 25 unit SC HS [facility] Last Admin: 03/07/17 21:03 Dose: 25 unit Insulin Human Regular (Novolin R) 0 unit SC ACHS ELINA PRN Reason: Protocol Last Admin: 03/07/17 21:08 Dose: 2 unit Latanoprost (Xalatan Opht) 0.02 ml OU HS [facility] Last Admin: 03/07/17 21:13 Dose: Not Given Losartan Potassium (Cozaar) 100 mg PO DAILY [facility] Last Admin: 03/07/17 13:24 Dose: 100 mg Pantoprazole Sodium (Protonix Inj) 40 mg IVP Q12H [facility] Last Admin: 03/08/17 04:26 Dose: 40 mg Rosuvastatin Calcium (Crestor) 10 mg PO HS [facility] Last Admin: 03/07/17 21:07 Dose: 10 mg Timolol Maleate (Timoptic 0.5% Ophth Soln) 1 drop OU BID [facility] Last Admin: 03/07/17 18:48 Dose: 1 drop Vitamin B Complex/Vit C/Folic Acid (Nephro-Alonzo) 1 tab PO 0800 [facility] Last Admin: 03/07/17 07:49 Dose: 1 tab - Labs Labs: 03/07/17 10:03 03/07/17 10:03 PT 12.3 SECONDS (9.7-12.2) H 02/18/17 05:30 INR 1.1 02/18/17 05:30 APTT 30 SECONDS (21-34) 02/18/17 05:30 - Constitutional Appears: No Acute Distress - Head Exam Head Exam: ATRAUMATIC, NORMOCEPHALIC - Eye Exam Eye Exam: EOMI, PERRL - ENT Exam ENT Exam: Mucous Membranes Moist - Respiratory Exam Respiratory Exam: Clear to Ausculation Bilateral. absent: Rales, Rhonchi, Wheezes - Cardiovascular Exam Cardiovascular Exam: REGULAR RHYTHM, +S1, +S2 - GI/Abdominal Exam GI & Abdominal Exam: Soft, Normal Bowel Sounds. absent: Tenderness - Extremities Exam Extremities Exam: absent: Calf Tenderness, Pedal Edema Additional comments: Chronic venous stasis changes bilaterally in the legs Left foot ulcer with 10x5 cm eschar spanning lateral plantar surface s/p debridement with wound vac in place for left foot wound. - Neurological Exam Neurological Exam: Alert, Awake - Skin Skin Exam: Dry, Pallor Assessment and Plan - Assessment and Plan (Free Text) Plan: 1. Non-Healing Left Heel Ulcer 03/02: Wound vac was replaced this afternoon. Gram positive cocci grew in the blood cultures. 03/01: POD #2 s/p debridement of L foot ulcer. Patient's WBC increased to 21.7 with left shift. Lactate 2.8--> repeat 1.9; recheck blood cultures today. Plan to change wound vac on foot tomorrow. 02/26/17: Patient underwent aortofemoral angiogram via right groin with selective catheterization of left anterior femoral artery. Balloon angioplasty of popliteal artery. Pathway arthrectomy and balloon angioplasty of anterior tibial artery. 02/27/17: Debridement of left foot ulcer with wound vac placed and cultures taken. Podiatry consult - Dr. Avery, help appreciated Infectious Disease Dr. Wellington consulted, help appreciated. Dr. Broussard on board, help appreciated. Low ext arterial duplex (02/04/17): R- occlusion R post tib artery, 50-75% stenosis right mid popliteal & proximal anterior tib arteries L- occlusion of left post tib artery, >75% stenosis left proximal ant tibial artery, 50-75% stenosis left distal SFA & proximal popliteal a. Vancomycin 1000 mg IV [facility] [place] on 02/22/17 Cefepime 1 gm IV Q24H 02/18/17 to 02/23/17 Zyvox 600 mg PO BID started 02/22/17-02/23/17 Current antibiotics: Tygacil 100 mg loading dose on 02/25/17 and then continued as Tygacil 50 mg IV Q12H, Vanco 125mg PO QID, Flagyl 500mg IV q8h Abdominal Angiography 02/19/17: Severe bilateral lower extremity arterial runoff with 1 vessel likely remaining patent at the right. None is continuously patent at the left lower extremity [id number]. Widely patent abdominal aorta and iliac arterial system with moderate right and [id number] left femoral arterial disease. Severe bilateral popliteal artery arterial disease. Dr. Avery recommended Left BKA given his physical exam findings. Dr. Broussard also recommends the left BKA. He stated that even if the gangrenous portion is removed, it will not heal regardless of revascularization. As of 02/25, the patient's family has decided for her to stay and have Dr. Broussard clean the wound and improve the circulation in the leg. Before this, they were adamant about getting the patient to [facility] for hyperbaric therapy to try to salvage the leg. They still do not wish for amputation at this time. Colchicine 0.6 mg PO BID added on 03/08/17 for anti-inflammatory properties. Patient is already on hemodialysis. Dilaudid 0.5 mg IV Q4 prn pain 2. Left Pleural Effusion 03/02: 500 cc clear fluid drained from the left pleura 03/01: Chest X-ray ordered showed left sided pleural effusion new since admission (see full report) f/u CT chest without contrast Ordered thoracentesis with fluid studies Consulted Order Packer Or Packager Dr John- will f/u recommendations 3. C. Diff C. Diff studies positive Patient on isolation contact precaution Vancomycin 125 mg PO QID started--discontinued Dr. Wellington added Flagyl 500 mg IV [id number] repeat C diff and stool culture on 02/28--negative 4. Altered Mental Status 03/01: Patient obtunded this AM due to Gabapentin that was given night prior ( renally excreted). Gabapentin was discontinued. Repeat CT head without contrast was ordered this morning which was negative for acute infarct. Avoid pain medications that are renally excreted at this time. CT Head negative for Acute Territorial Infarction Patient found hypoglycemic by both and EMS with symptoms that suggest seizure episode. Patient is a poorly controlled diabetic. Monitor Accuchecks qACHS and Q4H Patient likely had an episode of neuroglycopenia and currently in post-ictal state. Due to post-ictal state, decision made to avoid narcotic pain medications. [employer]PA[employer]ER performed successful bedside swallow eval and recommended Pureed diet with thin liquids. Home PO meds restarted. Neurology consult Dr. Tanisha Aguirre, help appreciated. Thiamine 100 mg Q8H Could not get brain MRI which was neuro's recommendation due to 3 previous attempts where patient was moving too much. We do not wish to further sedate the patient due to her current mental state, so instead a repeat CT Head without contrast was done on 02/23/17. This CT head did not demonstrate any acute hemorrhagic or ischemic pathology. 5. End Stage Renal Disease on Hemodialysis On HD T,,S Dr. Ambrose nephrology consulted- help appreciated 6. Decreased oral intake 03/01: Patient unable to eat due to altered mental status. Status changed to NPO at this time. Starting TPN for nutrition to be given via PICC line. 03/05/17: TPN changed to increase proteins per dietary's recommendations. -Diflucan was added empirically by GI team. 7. Hypertension 03/02: Patient resumed oral BP medications today and tolerated without issue. 03/01: Patient normotensive, held oral BP medications due to NPO status. Given Lasix 20mg IV x1 dose. Will monitor BP q4h and given medications as needed. PO Home medications held * Norvasc 5 mg PO daily * Losartan 100 mg PO daily * Furosemide 40 mg PO daily * Held Bumex for now Monitor BP q6h and adjust meds as needed 8. Anemia of Chronic Disease Hgb stable Likely secondary to ESRD Dr. Ambrose put for IV ferlicet 125 mg and Procrit 10,000 units IV Monitor CBC daily 9. Diabetes 03/01: Patient having multiple episodes of hypoglycemia causing mental status change. Stopping standing insulin. See COUNTER MOLDER note for more information. Accuchecks qACHS [facility]ISS Home Lantus 30 units SC HS- reduced to 15 units HS Lantus increased to 25 units on 03/06/[address] Myrick her sliding scale coverage for the last few days Crestor 10mg PO HS 10. Prophylactic Measures SCDs Heparin 5000 units SC Q8H 1:1 observation due to agitation. Patient tries to get out of bed. Fall precautions Palliative care consulted. Dietary consulted for recommendations for TPN Disposition: This patient has a very poor prognosis. The family wishes to try to save the leg despite multiple professional opinions on the necessity of an amputation. The family initially wished for the patient to go to [facility] where hyperbaric therapy is available in order to promote healing. They wished to be cared for by their personal proposal lead writer Dr. Ware; however, Dr. Ware has become unavailable. So the family decided to remain at [facility] and attempt healing via vascular surgery to improve circulation and wound debridement of damaged tissue. They were repeatedly warned by multiple medical billing supervisor of the risks associated with refusing a BKA and attempting to salvage the foot. The family verbalized understanding of the risks but still decide against a BKA at this time. Case DW Dr. Ramez Segura PGY-1 <Benson Myrick Jr. - Last Filed: 03/14/17 11:04> Objective - Vital Signs/Intake and Output Vital Signs (last 24 hours): Temp Pulse Resp BP Pulse Ox 99 F 89 20 155/64 H 97 03/14/17 08:01 03/14/17 08:01 03/14/17 08:01 03/14/17 08:01 03/14/17 08:01 - Medications Medications: Current Medications Acetaminophen (Tylenol 325mg Tab) 650 mg PO Q6 PRN PRN Reason: Pain, Mild (1-3) Last Admin: 03/11/17 17:49 Dose: 650 mg Amlodipine Besylate (Norvasc) 5 mg PO DAILY [facility] Last Admin: 03/13/17 09:14 Dose: 5 mg Brimonidine Tartrate (Alphagan 0.2% Opht) 1 ml OU TID [facility] Last Admin: 03/13/17 17:53 Dose: 1 drop Collagenase (Santyl) 0 gm TOP DAILY [facility] Last Admin: 03/13/17 10:00 Dose: Not Given Dextrose (Dextrose 50% Inj) 0 ml IV STAT PRN; Protocol PRN Reason: Hyglycemia Protocol Dextrose (Glutose 15) 0 gm PO ONCE PRN; Protocol PRN Reason: Hypoglycemia Protocol Epoetin Maxwell (Procrit) 10,000 unit IV TTS [facility] Last Admin: 03/12/17 10:19 Dose: 10,000 unit Glucagon (Glucagen Diagnostic Kit) 0 mg IM STAT PRN; Protocol PRN Reason: Hypoglycemia Protocol Heparin Sodium (Porcine) (Heparin) 5,000 units SC Q8 [facility] Last Admin: 03/14/17 05:07 Dose: 5,000 units Heparin Sodium (Porcine) (Heparin) 3,700 units IVP TTS [facility] Stop: 03/24/17 23:59 Last Admin: 03/12/17 10:22 Dose: 3,700 units Hydralazine HCl (Apresoline) 25 mg PO BID [facility] Last Admin: 03/13/17 17:52 Dose: 25 mg Hydromorphone HCl (Dilaudid) 0.5 mg IVP Q4H PRN PRN Reason: Pain, severe (8-10) Last Admin: 03/14/17 06:06 Dose: 0.5 mg Tigecycline 50 mg/ Sodium (Chloride) 100 mls @ 100 mls/hr IVPB Q12H [facility] Last Admin: 03/13/17 20:47 Dose: 100 mls/hr Fluconazole (Diflucan Iv 200 Mg/100 Ml Ns) 100 mls @ 100 mls/hr IVPB DAILY [facility] Last Admin: 03/13/17 10:36 Dose: 100 mls/hr Insulin Glargine (Lantus) 25 unit SC HS [facility] Last Admin: 03/12/17 22:13 Dose: 25 unit Insulin Human Regular (Novolin R) 0 unit SC ACHS ELINA PRN Reason: Protocol Last Admin: 03/13/17 22:08 Dose: Not Given Latanoprost (Xalatan Opht) 0.02 ml OU HS [facility] Last Admin: 03/13/17 22:03 Dose: 0.02 ml Losartan Potassium (Cozaar) 100 mg PO DAILY [facility] Last Admin: 03/13/17 09:14 Dose: 100 mg Pantoprazole Sodium (Protonix Inj) 40 mg IVP Q12H [facility] Last Admin: 03/14/17 03:55 Dose: 40 mg Rosuvastatin Calcium (Crestor) 10 mg PO HS [facility] Last Admin: 03/13/17 22:05 Dose: 10 mg Timolol Maleate (Timoptic 0.5% Oph Soln) 1 drop OU BID [facility] Last Admin: 03/13/17 17:53 Dose: 1 drop - Labs Labs: 03/14/17 09:32 03/14/17 09:32 PT 12.3 SECONDS (9.7-12.2) H 02/18/17 05:30 INR 1.1 02/18/17 05:30 APTT 30 SECONDS (21-34) 02/18/17 05:30 Attending/Attestation - Attestation I have personally seen and examined this patient.: Yes I have fully participated in the care of the patient.: Yes I have reviewed all pertinent clinical information, including history, physical exam and plan: Yes Notes (Text): 03/14/17 11:04 Agree with resident note and plan of care
[2017-03-08] MEDS: Multivitamin Vitamin B Complex (Nephro-Vite) Tab PO SCH (08:33)
[2017-03-08] MEDS: (Novolin R) Insulin Human Regular 100 units/ml vial SC SCH ×4 (08:33→22:49)
[2017-03-08] MEDS ORDERED: TPN IV SCH (10:00)
[2017-03-08] MEDS: Collagenase 250 Units/gm Ointment(30 gm) TOP SCH (10:50)
[2017-03-08] MEDS: HYDROmorphone 0.5 mg/0.5 ml ISec IVP PRN ×2 (10:50→17:38)
[2017-03-08] MEDS: Brimonidine 0.2% Opth Sol (5ml) OU SCH ×4 (10:51→17:37)
[2017-03-08] MEDS: Fluconazole IV 200mg/100 ml NS 100 ML IVPB SCH (11:03)
--- NOTE | 2017-03-08 12:01 | CP.PCM.PN ---
Subjective - Date & Time of Evaluation Date of Evaluation: 03/08/17 Time of Evaluation: 11:58 - Subjective Subjective: SURGERY PROGRESS NOTE FOR DR. MOCTEZUMA Patient seen and examined with family at bedside. Wound vac was changed today with Dr. Myrick. On 125mm Hg with no leak. Objective - Vital Signs/Intake and Output Vital Signs (last 24 hours): Temp Pulse Resp BP Pulse Ox 97.9 F 76 20 166/69 H 98 03/08/17 08:12 03/08/17 08:12 03/08/17 08:12 03/08/17 10:49 03/08/17 08:12 Intake and Output: 03/08/17 03/08/17 06:59 18:59 Intake Total 770 Balance 770 - Medications Medications: Current Medications Acetaminophen (Tylenol 325mg Tab) 650 mg PO Q6 PRN PRN Reason: Pain, Mild (1-3) Last Admin: 03/07/17 18:20 Dose: 650 mg Amlodipine Besylate (Norvasc) 5 mg PO DAILY [facility] Last Admin: 03/08/17 10:50 Dose: 5 mg Ascorbic Acid (Vitamin C 500 Mg Tab) 500 mg PO DAILY [facility] Last Admin: 03/08/17 10:49 Dose: 500 mg Brimonidine Tartrate (Alphagan 0.2% Opht) 1 ml OU TID [facility] Last Admin: 03/08/17 10:52 Dose: 1 drop Collagenase (Santyl) 0 gm TOP DAILY [facility] Last Admin: 03/08/17 10:50 Dose: Not Given Dextrose (Dextrose 50% Inj) 0 ml IV STAT PRN; Protocol PRN Reason: Hyglycemia Protocol Dextrose (Glutose 15) 0 gm PO ONCE PRN; Protocol PRN Reason: Hypoglycemia Protocol Epoetin Maxwell (Procrit) 10,000 unit IV TTS [facility] Last Admin: 03/07/17 11:29 Dose: 10,000 unit Ergocalciferol (Drisdol 50,000 Intl Units Cap) 1 cap PO QWK [facility] Last Admin: 03/05/17 14:54 Dose: 1 cap Furosemide (Lasix) 40 mg PO DAILY [facility] Last Admin: 03/08/17 10:49 Dose: 40 mg Glucagon (Glucagen Diagnostic Kit) 0 mg IM STAT PRN; Protocol PRN Reason: Hypoglycemia Protocol Heparin Sodium (Porcine) (Heparin) 5,000 units SC Q8 [facility] Last Admin: 03/08/17 04:59 Dose: 5,000 units Heparin Sodium (Porcine) (Heparin) 3,700 units IVP TTS [facility] Stop: 03/24/17 23:59 Last Admin: 03/07/17 11:20 Dose: 3,700 units Hydralazine HCl (Apresoline) 25 mg PO BID [facility] Last Admin: 03/08/17 10:49 Dose: 25 mg Hydromorphone HCl (Dilaudid) 0.5 mg IVP Q6H PRN PRN Reason: Pain, severe (8-10) Last Admin: 03/08/17 10:50 Dose: 0.5 mg Tigecycline 50 mg/ Sodium (Chloride) 100 mls @ 100 mls/hr IVPB Q12H [facility] Last Admin: 03/08/17 08:33 Dose: 100 mls/hr Fluconazole (Diflucan Iv 200 Mg/100 Ml Ns) 100 mls @ 100 mls/hr IVPB DAILY [facility] Last Admin: 03/08/17 11:03 Dose: 100 mls/hr Sodium Chloride 35 meq/Potassium Chloride 30 meq/Magnesium Sulfate 6 meq/ Calcium Gluconate 4.5 meq/Heparin Sodium (Porcine) 1,000 units/ Amino Acids 1, 035.9052 mls @ 63 mls/hr IV .[id number] [facility] Stop: 03/08/17 18:00 Last Admin: 03/08/17 11:03 Dose: 63 mls/hr Sodium Chloride 35 meq/Potassium Chloride 30 meq/Magnesium Sulfate 6 meq/ Calcium Gluconate 4.5 meq/Heparin Sodium (Porcine) 1,000 units/ Amino Acids 1, 035.9052 mls @ 63 mls/hr IV .[id number] [facility] Stop: 03/09/17 10:26 Sodium Chloride 35 meq/Potassium Chloride 30 meq/Magnesium Sulfate 6 meq/ Calcium Gluconate 4.5 meq/Heparin Sodium (Porcine) 1,000 units/ Amino Acids 1, 035.9052 mls @ 63 mls/hr IV .[id number] [facility] Stop: 03/09/17 17:59 Insulin Glargine (Lantus) 25 unit SC HS [facility] Last Admin: 03/07/17 21:03 Dose: 25 unit Insulin Human Regular (Novolin R) 0 unit SC ACHS [facility] PRN Reason: Protocol Last Admin: 03/08/17 08:33 Dose: 12 unit Latanoprost (Xalatan Opht) 0.02 ml OU HS [facility] Last Admin: 03/07/17 21:13 Dose: Not Given Losartan Potassium (Cozaar) 100 mg PO DAILY [facility] Last Admin: 03/08/17 10:49 Dose: 100 mg Pantoprazole Sodium (Protonix Inj) 40 mg IVP Q12H [facility] Last Admin: 03/08/17 04:26 Dose: 40 mg Rosuvastatin Calcium (Crestor) 10 mg PO HS [facility] Last Admin: 03/07/17 21:07 Dose: 10 mg Timolol Maleate (Timoptic 0.5% Ophth Soln) 1 drop OU BID [facility] Last Admin: 03/08/17 10:51 Dose: 1 drop Vitamin B Complex/Vit C/Folic Acid (Nephro-Alonzo) 1 tab PO 0800 [facility] Last Admin: 03/08/17 08:33 Dose: 1 tab - Labs Labs: 03/07/17 10:03 03/07/17 10:03 PT 12.3 SECONDS (9.7-12.2) H 02/18/17 05:30 INR 1.1 02/18/17 05:30 APTT 30 SECONDS (21-34) 02/18/17 05:30 - Constitutional Appears: Non-toxic, No Acute Distress - Eye Exam Eye Exam: EOMI, Normal appearance - Cardiovascular Exam Cardiovascular Exam: +S1, +S2 - Extremities Exam Additional comments: left foot ulcer with wound vac in place - Neurological Exam Neurological Exam: Alert, Awake Assessment and Plan - Assessment and Plan (Free Text) Assessment: 71yo F s/p Left foot debridement and wound vac placement POD#10 - Wound vac changed today and Santyl placed as per Dr. Myrick - no leak - Abx per ID - Discussed plan with Dr. Ramez Briseno PGY-3
--- NOTE | 2017-03-08 15:04 | CP.PCM.PN ---
Subjective - Date & Time of Evaluation Date of Evaluation: 03/08/17 Time of Evaluation: 09:00 - Subjective Subjective: iv rx renewed wounds same wbc 17 k Objective - Vital Signs/Intake and Output Vital Signs (last 24 hours): Temp Pulse Resp BP Pulse Ox 97.9 F 76 20 166/69 H 98 03/08/17 08:12 03/08/17 08:12 03/08/17 08:12 03/08/17 10:49 03/08/17 08:12 Intake and Output: 03/08/17 03/08/17 06:59 18:59 Intake Total 770 Balance 770 - Medications Medications: Current Medications Acetaminophen (Tylenol 325mg Tab) 650 mg PO Q6 PRN PRN Reason: Pain, Mild (1-3) Last Admin: 03/07/17 18:20 Dose: 650 mg Amlodipine Besylate (Norvasc) 5 mg PO DAILY [facility] Last Admin: 03/08/17 10:50 Dose: 5 mg Ascorbic Acid (Vitamin C 500 Mg Tab) 500 mg PO DAILY [facility] Last Admin: 03/08/17 10:49 Dose: 500 mg Brimonidine Tartrate (Alphagan 0.2% Opht) 1 ml OU TID [facility] Last Admin: 03/08/17 14:20 Dose: 1 drop Colchicine (Colocrys) 0.6 mg PO BID [facility] Collagenase (Santyl) 0 gm TOP DAILY [facility] Last Admin: 03/08/17 10:50 Dose: Not Given Dextrose (Dextrose 50% Inj) 0 ml IV STAT PRN; Protocol PRN Reason: Hyglycemia Protocol Dextrose (Glutose 15) 0 gm PO ONCE PRN; Protocol PRN Reason: Hypoglycemia Protocol Epoetin Maxwell (Procrit) 10,000 unit IV TTS [facility] Last Admin: 03/07/17 11:29 Dose: 10,000 unit Ergocalciferol (Drisdol 50,000 Intl Units Cap) 1 cap PO QWK [facility] Last Admin: 03/05/17 14:54 Dose: 1 cap Furosemide (Lasix) 40 mg PO DAILY [facility] Last Admin: 03/08/17 10:49 Dose: 40 mg Glucagon (Glucagen Diagnostic Kit) 0 mg IM STAT PRN; Protocol PRN Reason: Hypoglycemia Protocol Heparin Sodium (Porcine) (Heparin) 5,000 units SC Q8 [facility] Last Admin: 03/08/17 14:20 Dose: 5,000 units Heparin Sodium (Porcine) (Heparin) 3,700 units IVP TTS [facility] Stop: 03/24/17 23:59 Last Admin: 03/07/17 11:20 Dose: 3,700 units Hydralazine HCl (Apresoline) 25 mg PO BID [facility] Last Admin: 03/08/17 10:49 Dose: 25 mg Hydromorphone HCl (Dilaudid) 0.5 mg IVP Q4H PRN PRN Reason: Pain, severe (8-10) Tigecycline 50 mg/ Sodium (Chloride) 100 mls @ 100 mls/hr IVPB Q12H [facility] Last Admin: 03/08/17 08:33 Dose: 100 mls/hr Fluconazole (Diflucan Iv 200 Mg/100 Ml Ns) 100 mls @ 100 mls/hr IVPB DAILY [facility] Last Admin: 03/08/17 11:03 Dose: 100 mls/hr Sodium Chloride 35 meq/Potassium Chloride 30 meq/Magnesium Sulfate 6 meq/ Calcium Gluconate 4.5 meq/Heparin Sodium (Porcine) 1,000 units/ Amino Acids 1, 035.9052 mls @ 63 mls/hr IV .[id number] [facility] Stop: 03/08/17 18:00 Last Admin: 03/08/17 11:03 Dose: 63 mls/hr Sodium Chloride 35 meq/Potassium Chloride 30 meq/Magnesium Sulfate 6 meq/ Calcium Gluconate 4.5 meq/Heparin Sodium (Porcine) 1,000 units/ Amino Acids 1, 035.9052 mls @ 63 mls/hr IV .[id number] ONE Stop: 03/09/17 10:26 Sodium Chloride 35 meq/Potassium Chloride 30 meq/Magnesium Sulfate 6 meq/ Calcium Gluconate 4.5 meq/Heparin Sodium (Porcine) 1,000 units/ Amino Acids 1, 035.9052 mls @ 63 mls/hr IV .[id number] [facility] Stop: 03/09/17 17:59 Insulin Glargine (Lantus) 25 unit SC HS [facility] Last Admin: 03/07/17 21:03 Dose: 25 unit Insulin Human Regular (Novolin R) 0 unit SC ACHS [facility] PRN Reason: Protocol Last Admin: 03/08/17 14:19 Dose: 8 unit Latanoprost (Xalatan Opht) 0.02 ml OU HS [facility] Last Admin: 03/07/17 21:13 Dose: Not Given Losartan Potassium (Cozaar) 100 mg PO DAILY [facility] Last Admin: 03/08/17 10:49 Dose: 100 mg Pantoprazole Sodium (Protonix Inj) 40 mg IVP Q12H [facility] Last Admin: 03/08/17 04:26 Dose: 40 mg Rosuvastatin Calcium (Crestor) 10 mg PO HS [facility] Last Admin: 03/07/17 21:07 Dose: 10 mg Timolol Maleate (Timoptic 0.5% [facility]) 1 drop OU BID [facility] Last Admin: 03/08/17 10:51 Dose: 1 drop Vitamin B Complex/Vit C/Folic Acid (Nephro-Alonzo) 1 tab PO 0800 [facility] Last Admin: 03/08/17 08:33 Dose: 1 tab - Labs Labs: 03/07/17 10:03 03/07/17 10:03 PT 12.3 SECONDS (9.7-12.2) H 02/18/17 05:30 INR 1.1 02/18/17 05:30 APTT 30 SECONDS (21-34) 02/18/17 05:30 - Constitutional Appears: Non-toxic, Cachectic, Chronically Ill - Head Exam Head Exam: NORMOCEPHALIC - Eye Exam Eye Exam: PERRL - ENT Exam ENT Exam: Mucous Membranes Dry - Neck Exam Neck Exam: absent: Lymphadenopathy - Respiratory Exam Respiratory Exam: Decreased Breath Sounds - Cardiovascular Exam Cardiovascular Exam: REGULAR RHYTHM - GI/Abdominal Exam GI & Abdominal Exam: Distended, Soft Assessment and Plan (1) Change in mental status Status: Acute (2) End stage renal disease on dialysis Status: Acute (3) Heel ulcer Status: Acute (4) IDDM (insulin dependent diabetes mellitus) Status: Chronic - Assessment and Plan (Free Text) Assessment: supportive care cont iv rx and wound care poor prognosis for limb salvage
[2017-03-08] MEDS ORDERED: TPN IV ONE (18:00)
[2017-03-08] MEDS: Latanoprost 2.5 ml Opht Soln OU SCH (21:28)
[2017-03-08] MEDS: (Lantus) Insulin Glargine, Recombinant SC SCH (22:48)
[2017-03-08 22:52] LABS: BASO # 0.2 K/uL (0.0-0.2); BASO % 0.8 % (0.0-2.0); EOS # 0.4 K/uL (0.0-0.7); EOS % 1.7 % (0.0-4.0); HEMATOCRIT 29.3 % (34.0-47.0); LYMPH # 2.1 K/uL (1.0-4.3); LYMPH % 9.7 % (20.0-40.0); MEAN CELL VOLUME 91.1 fL (81.0-99.0); MEAN CORPUSCULAR HEMOGLOBIN 28.8 pg (27.0-31.0); MEAN CORPUSCULAR HGB CONC 31.6 g/dL (33.0-37.0); MEAN PLATELET VOLUME 9.7 fL (7.2-11.7); MONO # 2.3 K/uL (0.0-0.8); MONO % 10.6 % (0.0-10.0); PLATELET COUNT 269 K/uL (130-400); RED CELL DISTRIBUTION WIDTH 22.4 % (11.5-14.5); WHITE BLOOD COUNT 21.4 K/uL (4.8-10.8)
[2017-03-08 23:02] LABS: POTASSIUM 4.3 mmol/L (3.6-5.2)
[2017-03-08 23:04] LABS: ALB/GLOB RATIO 0.7 (1.0-2.1); BILIRUBIN,TOTAL 0.5 mg/dL (0.2-1.3); TOTAL PROTEIN 5.2 g/dL (6.3-8.3)
[2017-03-08 23:05] LABS: CALCIUM 7.7 mg/dl (8.6-10.4); MAGNESIUM 1.9 mg/dL (1.6-2.3); PHOSPHOROUS 3.2 mg/dL (2.5-4.5)
[2017-03-08 23:24] LABS: EOSINOPHIL 1 % (0-4); NEUTROPHIL 82 % (50-75); TOTAL CELLS COUNTED 100
--- NOTE | 2017-03-09 07:23 | CP.PCM.PN ---
<Piyush Segura - Last Filed: 03/09/17 21:13> Subjective - Date & Time of Evaluation Date of Evaluation: 03/09/17 Time of Evaluation: 10:10 - Subjective Subjective: PGY-[address] Myrick Patient seen and examined. Patient is sleepy and unable to communicate with full words. ROS unable to ascertain. Patient able to recognize family and caregivers. Objective - Vital Signs/Intake and Output Vital Signs (last 24 hours): Temp Pulse Resp BP Pulse Ox 97.3 F L 66 20 122/64 95 03/08/17 23:25 03/08/17 23:25 03/08/17 23:25 03/08/17 23:25 03/08/17 23:25 - Medications Medications: Current Medications Acetaminophen (Tylenol 325mg Tab) 650 mg PO Q6 PRN PRN Reason: Pain, Mild (1-3) Last Admin: 03/07/17 18:20 Dose: 650 mg Amlodipine Besylate (Norvasc) 5 mg PO DAILY [facility] Last Admin: 03/08/17 10:50 Dose: 5 mg Ascorbic Acid (Vitamin C 500 Mg Tab) 500 mg PO DAILY [facility] Last Admin: 03/08/17 10:49 Dose: 500 mg Brimonidine Tartrate (Alphagan 0.2% Opht) 1 ml OU TID [facility] Last Admin: 03/08/17 17:37 Dose: 1 drop Colchicine (Colocrys) 0.6 mg PO BID [facility] Last Admin: 03/08/17 21:25 Dose: 0.6 mg Collagenase (Santyl) 0 gm TOP DAILY [facility] Last Admin: 03/08/17 10:50 Dose: Not Given Dextrose (Dextrose 50% Inj) 0 ml IV STAT PRN; Protocol PRN Reason: Hyglycemia Protocol Dextrose (Glutose 15) 0 gm PO ONCE PRN; Protocol PRN Reason: Hypoglycemia Protocol Epoetin Maxwell (Procrit) 10,000 unit IV TTS [facility] Last Admin: 03/07/17 11:29 Dose: 10,000 unit Ergocalciferol (Drisdol 50,000 Intl Units Cap) 1 cap PO QWK [facility] Last Admin: 03/05/17 14:54 Dose: 1 cap Furosemide (Lasix) 40 mg PO DAILY [facility] Last Admin: 03/08/17 10:49 Dose: 40 mg Glucagon (Glucagen Diagnostic Kit) 0 mg IM STAT PRN; Protocol PRN Reason: Hypoglycemia Protocol Heparin Sodium (Porcine) (Heparin) 5,000 units SC Q8 [facility] Last Admin: 03/09/17 05:38 Dose: 5,000 units Heparin Sodium (Porcine) (Heparin) 3,700 units IVP TTS [facility] Stop: 03/24/17 23:59 Last Admin: 03/07/17 11:20 Dose: 3,700 units Hydralazine HCl (Apresoline) 25 mg PO BID [facility] Last Admin: 03/08/17 17:36 Dose: 25 mg Hydromorphone HCl (Dilaudid) 0.5 mg IVP Q4H PRN PRN Reason: Pain, severe (8-10) Last Admin: 03/08/17 17:38 Dose: 0.5 mg Tigecycline 50 mg/ Sodium (Chloride) 100 mls @ 100 mls/hr IVPB Q12H [facility] Last Admin: 03/08/17 21:27 Dose: 100 mls/hr Fluconazole (Diflucan Iv 200 Mg/100 Ml Ns) 100 mls @ 100 mls/hr IVPB DAILY [facility] Last Admin: 03/08/17 11:03 Dose: 100 mls/hr Sodium Chloride 35 meq/Potassium Chloride 30 meq/Magnesium Sulfate 6 meq/ Calcium Gluconate 4.5 meq/Heparin Sodium (Porcine) 1,000 units/ Amino Acids 1, 035.9052 mls @ 63 mls/hr IV .[id number] ONE Stop: 03/09/17 10:26 Sodium Chloride 35 meq/Potassium Chloride 30 meq/Magnesium Sulfate 6 meq/ Calcium Gluconate 4.5 meq/Heparin Sodium (Porcine) 1,000 units/ Amino Acids 1, 035.9052 mls @ 63 mls/hr IV .[id number] [facility] Stop: 03/09/17 17:59 Insulin Glargine (Lantus) 25 unit SC HS [facility] Last Admin: 03/08/17 22:48 Dose: Not Given Insulin Human Regular (Novolin R) 0 unit SC ACHS [facility] PRN Reason: Protocol Last Admin: 03/08/17 22:49 Dose: Not Given Latanoprost (Xalatan Opht) 0.02 ml OU HS [facility] Last Admin: 03/08/17 21:28 Dose: 0.02 ml Losartan Potassium (Cozaar) 100 mg PO DAILY [facility] Last Admin: 03/08/17 10:49 Dose: 100 mg Pantoprazole Sodium (Protonix Inj) 40 mg IVP Q12H [facility] Last Admin: 03/09/17 03:11 Dose: 40 mg Rosuvastatin Calcium (Crestor) 10 mg PO HS [facility] Last Admin: 03/08/17 21:25 Dose: 10 mg Timolol Maleate (Timoptic 0.5% Ophth Soln) 1 drop OU BID [facility] Last Admin: 03/08/17 17:37 Dose: 1 drop Vitamin B Complex/Vit C/Folic Acid (Nephro-Alonzo) 1 tab PO 0800 [facility] Last Admin: 03/08/17 08:33 Dose: 1 tab - Labs Labs: 03/08/17 22:50 03/08/17 22:50 PT 12.3 SECONDS (9.7-12.2) H 02/18/17 05:30 INR 1.1 02/18/17 05:30 APTT 30 SECONDS (21-34) 02/18/17 05:30 - Constitutional Appears: No Acute Distress - Head Exam Head Exam: ATRAUMATIC, NORMOCEPHALIC - Eye Exam Eye Exam: EOMI, PERRL - ENT Exam ENT Exam: Mucous Membranes Moist - Respiratory Exam Respiratory Exam: Clear to Ausculation Bilateral. absent: Rales, Rhonchi, Wheezes - Cardiovascular Exam Cardiovascular Exam: REGULAR RHYTHM, +S1, +S2 - GI/Abdominal Exam GI & Abdominal Exam: Soft, Normal Bowel Sounds. absent: Tenderness - Extremities Exam Extremities Exam: absent: Calf Tenderness, Pedal Edema Additional comments: Chronic venous stasis changes bilaterally in the legs Left foot ulcer with 10x5 cm eschar spanning lateral plantar surface s/p debridement with wound vac in place for left foot wound. - Neurological Exam Neurological Exam: Alert, Awake - Skin Skin Exam: Dry, Pallor Assessment and Plan - Assessment and Plan (Free Text) Plan: 1. Non-Healing Left Heel Ulcer 03/02: Wound vac was replaced this afternoon. Gram positive cocci grew in the blood cultures. 03/01: POD #2 s/p debridement of L foot ulcer. Patient's WBC increased to 21.7 with left shift. Lactate 2.8--> repeat 1.9; recheck blood cultures today. Plan to change wound vac on foot tomorrow. 02/26/17: Patient underwent aortofemoral angiogram via right groin with selective catheterization of left anterior femoral artery. Balloon angioplasty of popliteal artery. Pathway arthrectomy and balloon angioplasty of anterior tibial artery. 02/27/17: Debridement of left foot ulcer with wound vac placed and cultures taken. Podiatry consult - Dr. Avery, help appreciated Infectious Disease Dr. Wellignton consulted, help appreciated. Dr. Broussard on board, help appreciated. Low ext arterial duplex (02/04/17): R- occlusion R post tib artery, 50-75% stenosis right mid popliteal & proximal anterior tib arteries L- occlusion of left post tib artery, >75% stenosis left proximal ant tibial artery, 50-75% stenosis left distal SFA & proximal popliteal a. Vancomycin 1000 mg IV MWF [facility] D/C'ed on 02/22/17 Cefepime 1 gm IV Q24H 02/18/17 to 02/23/17 Zyvox 600 mg PO BID started 02/22/17-02/23/17 Current antibiotics: Tygacil 100 mg loading dose on 02/25/17 and then continued as Tygacil 50 mg IV Q12H Abdominal Angiography 02/19/17: Severe bilateral lower extremity arterial runoff with 1 vessel likely remaining patent at the right. None is continuously patent at the left lower extremity [id number]. Widely patent abdominal aorta and iliac arterial system with moderate right and [id number] left femoral arterial disease. Severe bilateral popliteal artery arterial disease. Dr. Avery recommended Left BKA given his physical exam findings. Dr. Broussard also recommends the left BKA. He stated that even if the gangrenous portion is removed, it will not heal regardless of revascularization. As of 02/25, the patient's family has decided for her to stay and have Dr. Broussard clean the wound and improve the circulation in the leg. Before this, they were adamant about getting the patient to [facility] for hyperbaric therapy to try to salvage the leg. They still do not wish for amputation at this time. Colchicine 0.6 mg PO BID added on 03/08/17 for anti-inflammatory properties. Patient is already on hemodialysis. Dilaudid 0.5 mg IV Q4 prn pain 2. Left Pleural Effusion 03/02: 500 cc clear fluid drained from the left pleura 03/01: Chest X-ray ordered showed left sided pleural effusion new since admission (see full report) f/u CT chest without contrast Ordered thoracentesis with fluid studies Consulted Utility Manager Dr John- will f/u recommendations 3. C. Diff C. Diff studies positive Patient on isolation contact precaution Vancomycin 125 mg PO QID started--discontinued Dr. Wellington added Flagyl 500 mg IV [id number] repeat C diff and stool culture on 02/28--negative 4. Altered Mental Status 03/01: Patient obtunded this AM due to Gabapentin that was given night prior ( renally excreted). Gabapentin was discontinued. Repeat CT head without contrast was ordered this morning which was negative for acute infarct. Avoid pain medications that are renally excreted at this time. CT Head negative for Acute Territorial Infarction Patient found hypoglycemic by both and EMS with symptoms that suggest seizure episode. Patient is a poorly controlled diabetic. Monitor Accuchecks qACHS and Q4H Patient likely had an episode of neuroglycopenia and currently in post-ictal state. Due to post-ictal state, decision made to avoid narcotic pain medications. AUTOMATION LEAD performed successful bedside swallow eval and recommended Pureed diet with thin liquids. Home PO meds restarted. Neurology consult Dr. Tanisha Aguirre, help appreciated. Thiamine 100 mg Q8H Could not get brain MRI which was neuro's recommendation due to 3 previous attempts where patient was moving too much. We do not wish to further sedate the patient due to her current mental state, so instead a repeat CT Head without contrast was done on 02/23/17. This CT head did not demonstrate any acute hemorrhagic or ischemic pathology. 5. End Stage Renal Disease on Hemodialysis On HD T,,S Dr. Ambrose nephrology consulted- help appreciated 6. Decreased oral intake 03/01: Patient unable to eat due to altered mental status. Status changed to NPO at this time. Starting TPN for nutrition to be given via PICC line. 03/05/17: TPN changed to increase proteins per dietary's recommendations. -Diflucan was added empirically by GI team. 7. Hypertension 03/02: Patient resumed oral BP medications today and tolerated without issue. 03/01: Patient normotensive, held oral BP medications due to NPO status. Given Lasix 20mg IV x1 dose. Will monitor BP q4h and given medications as needed. PO Home medications: * Norvasc 5 mg PO daily * Losartan 100 mg PO daily * Furosemide 40 mg PO daily--held * Held Bumex for now Monitor BP q6h and adjust meds as needed 8. Anemia of Chronic Disease Hgb stable Likely secondary to ESRD Dr. Ambrose put for IV ferlicet 125 mg and Procrit 10,000 units IV Monitor CBC daily 9. Diabetes 03/01: Patient having multiple episodes of hypoglycemia causing mental status change. Stopping standing insulin. See FOOD RUNNER note for more information. Accuchecks qACHS [facility] Home Lantus 30 units SC HS- reduced to 15 units HS Lantus increased to 25 units on 03/06/[address] Myrick her sliding scale coverage for the last few days Crestor 10mg PO HS 10. Prophylactic Measures SCDs Heparin 5000 units SC Q8H 1:1 observation due to agitation. Patient tries to get out of bed. Fall precautions Palliative care consulted. Dietary consulted for recommendations for TPN Disposition: This patient has a very poor prognosis. The family wishes to try to save the leg despite multiple professional opinions on the necessity of an amputation. The family initially wished for the patient to go to [facility] where hyperbaric therapy is available in order to promote healing. They wished to be cared for by their personal sound controller Dr. Ware; however, Dr. Ware has become unavailable. So the family decided to remain at [facility] and attempt healing via vascular surgery to improve circulation and wound debridement of damaged tissue. They were repeatedly warned by multiple medical dir of the risks associated with refusing a BKA and attempting to salvage the foot. The family verbalized understanding of the risks but still decide against a BKA at this time. Case DW Dr. Ramez Segura PGY-1 <Benson Myrick Jr. - Last Filed: 03/14/17 11:05> Objective - Vital Signs/Intake and Output Vital Signs (last 24 hours): Temp Pulse Resp BP Pulse Ox 99 F 89 20 155/64 H 97 03/14/17 08:01 03/14/17 08:01 03/14/17 08:01 03/14/17 08:01 03/14/17 08:01 - Medications Medications: Current Medications Acetaminophen (Tylenol 325mg Tab) 650 mg PO Q6 PRN PRN Reason: Pain, Mild (1-3) Last Admin: 03/11/17 17:49 Dose: 650 mg Amlodipine Besylate (Norvasc) 5 mg PO DAILY [facility] Last Admin: 03/13/17 09:14 Dose: 5 mg Brimonidine Tartrate (Alphagan 0.2% Opht) 1 ml OU TID [facility] Last Admin: 03/13/17 17:53 Dose: 1 drop Collagenase (Santyl) 0 gm TOP DAILY [facility] Last Admin: 03/13/17 10:00 Dose: Not Given Dextrose (Dextrose 50% Inj) 0 ml IV STAT PRN; Protocol PRN Reason: Hyglycemia Protocol Dextrose (Glutose 15) 0 gm PO ONCE PRN; Protocol PRN Reason: Hypoglycemia Protocol Epoetin Maxwell (Procrit) 10,000 unit IV TTS [facility] Last Admin: 03/12/17 10:19 Dose: 10,000 unit Glucagon (Glucagen Diagnostic Kit) 0 mg IM STAT PRN; Protocol PRN Reason: Hypoglycemia Protocol Heparin Sodium (Porcine) (Heparin) 5,000 units SC Q8 [facility] Last Admin: 03/14/17 05:07 Dose: 5,000 units Heparin Sodium (Porcine) (Heparin) 3,700 units IVP TTS [facility] Stop: 03/24/17 23:59 Last Admin: 03/12/17 10:22 Dose: 3,700 units Hydralazine HCl (Apresoline) 25 mg PO BID [facility] Last Admin: 03/13/17 17:52 Dose: 25 mg Hydromorphone HCl (Dilaudid) 0.5 mg IVP Q4H PRN PRN Reason: Pain, severe (8-10) Last Admin: 03/14/17 06:06 Dose: 0.5 mg Tigecycline 50 mg/ Sodium (Chloride) 100 mls @ 100 mls/hr IVPB Q12H [facility] Last Admin: 03/13/17 20:47 Dose: 100 mls/hr Fluconazole (Diflucan Iv 200 Mg/100 Ml Ns) 100 mls @ 100 mls/hr IVPB DAILY [facility] Last Admin: 03/13/17 10:36 Dose: 100 mls/hr Insulin Glargine (Lantus) 25 unit SC HS [facility] Last Admin: 03/12/17 22:13 Dose: 25 unit Insulin Human Regular (Novolin R) 0 unit SC ACHS [facility] PRN Reason: Protocol Last Admin: 03/13/17 22:08 Dose: Not Given Latanoprost (Xalatan Opht) 0.02 ml OU HS [facility] Last Admin: 03/13/17 22:03 Dose: 0.02 ml Losartan Potassium (Cozaar) 100 mg PO DAILY [facility] Last Admin: 03/13/17 09:14 Dose: 100 mg Pantoprazole Sodium (Protonix Inj) 40 mg IVP Q12H [facility] Last Admin: 03/14/17 03:55 Dose: 40 mg Rosuvastatin Calcium (Crestor) 10 mg PO HS [facility] Last Admin: 03/13/17 22:05 Dose: 10 mg Timolol Maleate (Timoptic 0.5% Oph Soln) 1 drop OU BID [facility] Last Admin: 03/13/17 17:53 Dose: 1 drop - Labs Labs: 03/14/17 09:32 03/14/17 09:32 PT 12.3 SECONDS (9.7-12.2) H 02/18/17 05:30 INR 1.1 02/18/17 05:30 APTT 30 SECONDS (21-34) 02/18/17 05:30 Attending/Attestation - Attestation I have personally seen and examined this patient.: Yes I have fully participated in the care of the patient.: Yes I have reviewed all pertinent clinical information, including history, physical exam and plan: Yes Notes (Text): 03/14/17 11:05 Agree with resident note and plan of care
[2017-03-09 07:42] LABS: BASO # 0.1 K/uL (0.0-0.2); BASO % 0.5 % (0.0-2.0); EOS # 0.2 K/uL (0.0-0.7); EOS % 0.8 % (0.0-4.0); HEMATOCRIT 29.6 % (34.0-47.0); LYMPH # 1.5 K/uL (1.0-4.3); LYMPH % 8.2 % (20.0-40.0); MEAN CORPUSCULAR HEMOGLOBIN 28.7 pg (27.0-31.0); MEAN CORPUSCULAR HGB CONC 30.6 g/dL (33.0-37.0); MEAN PLATELET VOLUME 9.4 fL (7.2-11.7); MONO # 1.7 K/uL (0.0-0.8); MONO % 8.9 % (0.0-10.0); NRBC % 0.1 % (0.0-2.0); PLATELET COUNT 256 K/uL (130-400); RED CELL DISTRIBUTION WIDTH 23.2 % (11.5-14.5); WHITE BLOOD COUNT 18.7 K/uL (4.8-10.8)
[2017-03-09 07:53] LABS: MEAN CELL VOLUME 93.7 fL (81.0-99.0)
[2017-03-09] MEDS: (Novolin R) Insulin Human Regular 100 units/ml vial SC SCH ×4 (07:57→22:22)
[2017-03-09] MEDS: Multivitamin Vitamin B Complex (Nephro-Vite) Tab PO SCH ×2 (07:57→08:07)
[2017-03-09 08:31] LABS: NEUTROPHIL 86 % (50-75); TOTAL CELLS COUNTED 100
[2017-03-09 08:56] LABS: ALB/GLOB RATIO 0.8 (1.0-2.1); BILIRUBIN,TOTAL 0.6 mg/dL (0.2-1.3); TOTAL PROTEIN 4.8 g/dL (6.3-8.3)
[2017-03-09 08:57] LABS: CALCIUM 7.4 mg/dl (8.6-10.4); PHOSPHOROUS 3.8 mg/dL (2.5-4.5)
[2017-03-09 08:58] LABS: MAGNESIUM 1.9 mg/dL (1.6-2.3)
[2017-03-09 09:02] LABS: POTASSIUM 5.2 mmol/L (3.6-5.2)
[2017-03-09] MEDS: Fluconazole IV 200mg/100 ml NS 100 ML IVPB SCH (09:40)
[2017-03-09] MEDS: Brimonidine 0.2% Opth Sol (5ml) OU SCH ×3 (09:43→17:24)
[2017-03-09] MEDS: Collagenase 250 Units/gm Ointment(30 gm) TOP SCH (09:44)
[2017-03-09] MEDS ORDERED: TPN IV SCH ×2 (10:27→18:00)
[2017-03-09] MEDS: HYDROmorphone 0.5 mg/0.5 ml ISec IVP PRN ×2 (11:15→17:47)
--- NOTE | 2017-03-09 11:51 | CP.PCM.PN ---
Subjective - Date & Time of Evaluation Date of Evaluation: 03/09/17 Time of Evaluation: 10:00 - Subjective Subjective: patient seen and examined. Sitting comfortably in no acute distress Patient is much more awake and responsive no respiratory distress On hemodialysis Objective - Vital Signs/Intake and Output Vital Signs (last 24 hours): Temp Pulse Resp BP Pulse Ox 97.9 F 18 L 20 101/57 L 76 L 03/09/17 04:00 03/09/17 04:00 03/08/17 23:25 03/09/17 04:00 03/09/17 04:00 - Medications Medications: Current Medications Acetaminophen (Tylenol 325mg Tab) 650 mg PO Q6 PRN PRN Reason: Pain, Mild (1-3) Last Admin: 03/07/17 18:20 Dose: 650 mg Amlodipine Besylate (Norvasc) 5 mg PO DAILY [facility] Last Admin: 03/09/17 09:44 Dose: Not Given Ascorbic Acid (Vitamin C 500 Mg Tab) 500 mg PO DAILY [facility] Last Admin: 03/09/17 09:45 Dose: Not Given Brimonidine Tartrate (Alphagan 0.2% Opht) 1 ml OU TID [facility] Last Admin: 03/09/17 09:43 Dose: 1 drop Colchicine (Colocrys) 0.6 mg PO BID [facility] Last Admin: 03/09/17 09:43 Dose: Not Given Collagenase (Santyl) 0 gm TOP DAILY [facility] Last Admin: 03/09/17 09:44 Dose: Not Given Dextrose (Dextrose 50% Inj) 0 ml IV STAT PRN; Protocol PRN Reason: Hyglycemia Protocol Dextrose (Glutose 15) 0 gm PO ONCE PRN; Protocol PRN Reason: Hypoglycemia Protocol Epoetin Maxwell (Procrit) 10,000 unit IV TTS [facility] Last Admin: 03/07/17 11:29 Dose: 10,000 unit Ergocalciferol (Drisdol 50,000 Intl Units Cap) 1 cap PO QWK [facility] Last Admin: 03/05/17 14:54 Dose: 1 cap Furosemide (Lasix) 40 mg PO DAILY [facility] Last Admin: 03/09/17 09:44 Dose: Not Given Glucagon (Glucagen Diagnostic Kit) 0 mg IM STAT PRN; Protocol PRN Reason: Hypoglycemia Protocol Heparin Sodium (Porcine) (Heparin) 5,000 units SC Q8 [facility] Last Admin: 03/09/17 05:38 Dose: 5,000 units Heparin Sodium (Porcine) (Heparin) 3,700 units IVP TTS [facility] Stop: 03/24/17 23:59 Last Admin: 03/07/17 11:20 Dose: 3,700 units Hydralazine HCl (Apresoline) 25 mg PO BID [facility] Last Admin: 03/09/17 09:43 Dose: Not Given Hydromorphone HCl (Dilaudid) 0.5 mg IVP Q4H PRN PRN Reason: Pain, severe (8-10) Last Admin: 03/09/17 11:15 Dose: 0.5 mg Tigecycline 50 mg/ Sodium (Chloride) 100 mls @ 100 mls/hr IVPB Q12H [facility] Last Admin: 03/09/17 07:57 Dose: 100 mls/hr Fluconazole (Diflucan Iv 200 Mg/100 Ml Ns) 100 mls @ 100 mls/hr IVPB DAILY [facility] Last Admin: 03/09/17 09:40 Dose: 100 mls/hr Sodium Chloride 35 meq/Potassium Chloride 30 meq/Magnesium Sulfate 6 meq/ Calcium Gluconate 4.5 meq/Heparin Sodium (Porcine) 1,000 units/ Amino Acids 1, 035.9052 mls @ 63 mls/hr IV .[id number] [facility] Stop: 03/09/17 17:59 Last Admin: 03/09/17 11:04 Dose: 63 mls/hr Insulin Glargine (Lantus) 25 unit SC HS [facility] Last Admin: 03/08/17 22:48 Dose: Not Given Insulin Human Regular (Novolin R) 0 unit SC ACHS [facility] PRN Reason: Protocol Last Admin: 03/09/17 07:57 Dose: 10 unit Latanoprost (Xalatan Opht) 0.02 ml OU HS [facility] Last Admin: 03/08/17 21:28 Dose: 0.02 ml Losartan Potassium (Cozaar) 100 mg PO DAILY [facility] Last Admin: 03/09/17 09:44 Dose: Not Given Pantoprazole Sodium (Protonix Inj) 40 mg IVP Q12H [facility] Last Admin: 03/09/17 03:11 Dose: 40 mg Rosuvastatin Calcium (Crestor) 10 mg PO HS [facility] Last Admin: 03/08/17 21:25 Dose: 10 mg Timolol Maleate (Timoptic 0.5% Ophth Soln) 1 drop OU BID [facility] Last Admin: 03/09/17 09:44 Dose: 1 drop Vitamin B Complex/Vit C/Folic Acid (Nephro-Alonzo) 1 tab PO 0800 [facility] Last Admin: 03/09/17 08:07 Dose: Not Given - Labs Labs: 03/09/17 07:31 03/09/17 07:31 PT 12.3 SECONDS (9.7-12.2) H 02/18/17 05:30 INR 1.1 02/18/17 05:30 APTT 30 SECONDS (21-34) 02/18/17 05:30 Assessment and Plan (1) Pleural effusion Status: Chronic (2) Change in mental status Status: Acute (3) Clostridium difficile colitis Status: Acute (4) End stage renal disease on dialysis Status: Acute
--- NOTE | 2017-03-09 11:55 | CP.PCM.PN ---
Subjective - Date & Time of Evaluation Date of Evaluation: 03/09/17 Time of Evaluation: 09:00 - Subjective Subjective: afebrile recent + blood c/s noted Objective - Vital Signs/Intake and Output Vital Signs (last 24 hours): Temp Pulse Resp BP Pulse Ox 97.9 F 18 L 20 101/57 L 76 L 03/09/17 04:00 03/09/17 04:00 03/08/17 23:25 03/09/17 04:00 03/09/17 04:00 - Medications Medications: Current Medications Acetaminophen (Tylenol 325mg Tab) 650 mg PO Q6 PRN PRN Reason: Pain, Mild (1-3) Last Admin: 03/07/17 18:20 Dose: 650 mg Amlodipine Besylate (Norvasc) 5 mg PO DAILY [facility] Last Admin: 03/09/17 09:44 Dose: Not Given Ascorbic Acid (Vitamin C 500 Mg Tab) 500 mg PO DAILY [facility] Last Admin: 03/09/17 09:45 Dose: Not Given Brimonidine Tartrate (Alphagan 0.2% Opht) 1 ml OU TID [facility] Last Admin: 03/09/17 09:43 Dose: 1 drop Colchicine (Colocrys) 0.6 mg PO BID [facility] Last Admin: 03/09/17 09:43 Dose: Not Given Collagenase (Santyl) 0 gm TOP DAILY [facility] Last Admin: 03/09/17 09:44 Dose: Not Given Dextrose (Dextrose 50% Inj) 0 ml IV STAT PRN; Protocol PRN Reason: Hyglycemia Protocol Dextrose (Glutose 15) 0 gm PO ONCE PRN; Protocol PRN Reason: Hypoglycemia Protocol Epoetin Maxwell (Procrit) 10,000 unit IV TTS [facility] Last Admin: 03/07/17 11:29 Dose: 10,000 unit Ergocalciferol (Drisdol 50,000 Intl Units Cap) 1 cap PO QWK [facility] Last Admin: 03/05/17 14:54 Dose: 1 cap Furosemide (Lasix) 40 mg PO DAILY [facility] Last Admin: 03/09/17 09:44 Dose: Not Given Glucagon (Glucagen Diagnostic Kit) 0 mg IM STAT PRN; Protocol PRN Reason: Hypoglycemia Protocol Heparin Sodium (Porcine) (Heparin) 5,000 units SC Q8 [facility] Last Admin: 03/09/17 05:38 Dose: 5,000 units Heparin Sodium (Porcine) (Heparin) 3,700 units IVP TTS [facility] Stop: 03/24/17 23:59 Last Admin: 03/07/17 11:20 Dose: 3,700 units Hydralazine HCl (Apresoline) 25 mg PO BID [facility] Last Admin: 03/09/17 09:43 Dose: Not Given Hydromorphone HCl (Dilaudid) 0.5 mg IVP Q4H PRN PRN Reason: Pain, severe (8-10) Last Admin: 03/09/17 11:15 Dose: 0.5 mg Tigecycline 50 mg/ Sodium (Chloride) 100 mls @ 100 mls/hr IVPB Q12H [facility] Last Admin: 03/09/17 07:57 Dose: 100 mls/hr Fluconazole (Diflucan Iv 200 Mg/100 Ml Ns) 100 mls @ 100 mls/hr IVPB DAILY [facility] Last Admin: 03/09/17 09:40 Dose: 100 mls/hr Sodium Chloride 35 meq/Potassium Chloride 30 meq/Magnesium Sulfate 6 meq/ Calcium Gluconate 4.5 meq/Heparin Sodium (Porcine) 1,000 units/ Amino Acids 1, 035.9052 mls @ 63 mls/hr IV .[id number] [facility] Stop: 03/09/17 17:59 Last Admin: 03/09/17 11:04 Dose: 63 mls/hr Insulin Glargine (Lantus) 25 unit SC HS [facility] Last Admin: 03/08/17 22:48 Dose: Not Given Insulin Human Regular (Novolin R) 0 unit SC ACHS [facility] PRN Reason: Protocol Last Admin: 03/09/17 07:57 Dose: 10 unit Latanoprost (Xalatan Opht) 0.02 ml OU HS [facility] Last Admin: 03/08/17 21:28 Dose: 0.02 ml Losartan Potassium (Cozaar) 100 mg PO DAILY [facility] Last Admin: 03/09/17 09:44 Dose: Not Given Pantoprazole Sodium (Protonix Inj) 40 mg IVP Q12H [facility] Last Admin: 03/09/17 03:11 Dose: 40 mg Rosuvastatin Calcium (Crestor) 10 mg PO HS [facility] Last Admin: 03/08/17 21:25 Dose: 10 mg Timolol Maleate (Timoptic 0.5% Ophth Soln) 1 drop OU BID [facility] Last Admin: 03/09/17 09:44 Dose: 1 drop Vitamin B Complex/Vit C/Folic Acid (Nephro-Alonzo) 1 tab PO 0800 [facility] Last Admin: 03/09/17 08:07 Dose: Not Given - Labs Labs: 03/09/17 07:31 03/09/17 07:31 PT 12.3 SECONDS (9.7-12.2) H 02/18/17 05:30 INR 1.1 02/18/17 05:30 APTT 30 SECONDS (21-34) 02/18/17 05:30 - Constitutional Appears: Non-toxic, Chronically Ill - Head Exam Head Exam: NORMOCEPHALIC - Eye Exam Eye Exam: PERRL - ENT Exam ENT Exam: Mucous Membranes Dry - Neck Exam Neck Exam: absent: Lymphadenopathy - Respiratory Exam Respiratory Exam: Decreased Breath Sounds - Cardiovascular Exam Cardiovascular Exam: REGULAR RHYTHM - GI/Abdominal Exam GI & Abdominal Exam: Distended Assessment and Plan (1) Change in mental status Status: Acute (2) End stage renal disease on dialysis Status: Acute (3) Heel ulcer Status: Acute (4) IDDM (insulin dependent diabetes mellitus) Status: Chronic - Assessment and Plan (Free Text) Assessment: will repeat blood c/s may need to change all lines if blood c/s + upon repeat
--- NOTE | 2017-03-09 16:18 | CP.PCM.PN ---
Subjective - Date & Time of Evaluation Date of Evaluation: 03/09/17 Time of Evaluation: 16:15 - Subjective Subjective: CC: Follow up dysphagia patient on PPN ordered by medical team. Has hyponatremia, Anemia, foot ulcer, labile Diabetes, Duodenal ulcers, CDiff Colitis (treated). I recommend NG feeds in place of PPN. Will discuss with medical team. Objective - Vital Signs/Intake and Output Vital Signs (last 24 hours): Temp Pulse Resp BP Pulse Ox 97.3 F L 74 18 142/54 L 98 03/09/17 13:08 03/09/17 13:08 03/09/17 13:08 03/09/17 13:08 03/09/17 13:08 - Medications Medications: Current Medications Acetaminophen (Tylenol 325mg Tab) 650 mg PO Q6 PRN PRN Reason: Pain, Mild (1-3) Last Admin: 03/07/17 18:20 Dose: 650 mg Amlodipine Besylate (Norvasc) 5 mg PO DAILY [facility] Last Admin: 03/09/17 09:44 Dose: Not Given Ascorbic Acid (Vitamin C 500 Mg Tab) 500 mg PO DAILY [facility] Last Admin: 03/09/17 09:45 Dose: Not Given Brimonidine Tartrate (Alphagan 0.2% Opht) 1 ml OU TID [facility] Last Admin: 03/09/17 14:25 Dose: 1 drop Colchicine (Colocrys) 0.6 mg PO BID [facility] Last Admin: 03/09/17 09:43 Dose: Not Given Collagenase (Santyl) 0 gm TOP DAILY [facility] Last Admin: 03/09/17 09:44 Dose: Not Given Dextrose (Dextrose 50% Inj) 0 ml IV STAT PRN; Protocol PRN Reason: Hyglycemia Protocol Dextrose (Glutose 15) 0 gm PO ONCE PRN; Protocol PRN Reason: Hypoglycemia Protocol Epoetin Maxwell (Procrit) 10,000 unit IV TTS [facility] Last Admin: 03/07/17 11:29 Dose: 10,000 unit Ergocalciferol (Drisdol 50,000 Intl Units Cap) 1 cap PO QWK [facility] Last Admin: 03/05/17 14:54 Dose: 1 cap Furosemide (Lasix) 40 mg PO DAILY [facility] Last Admin: 03/09/17 09:44 Dose: Not Given Glucagon (Glucagen Diagnostic Kit) 0 mg IM STAT PRN; Protocol PRN Reason: Hypoglycemia Protocol Heparin Sodium (Porcine) (Heparin) 5,000 units SC Q8 [facility] Last Admin: 03/09/17 14:24 Dose: 5,000 units Heparin Sodium (Porcine) (Heparin) 3,700 units IVP TTS [facility] Stop: 03/24/17 23:59 Last Admin: 03/07/17 11:20 Dose: 3,700 units Hydralazine HCl (Apresoline) 25 mg PO BID [facility] Last Admin: 03/09/17 09:43 Dose: Not Given Hydromorphone HCl (Dilaudid) 0.5 mg IVP Q4H PRN PRN Reason: Pain, severe (8-10) Last Admin: 03/09/17 11:15 Dose: 0.5 mg Tigecycline 50 mg/ Sodium (Chloride) 100 mls @ 100 mls/hr IVPB Q12H [facility] Last Admin: 03/09/17 07:57 Dose: 100 mls/hr Fluconazole (Diflucan Iv 200 Mg/100 Ml Ns) 100 mls @ 100 mls/hr IVPB DAILY [facility] Last Admin: 03/09/17 09:40 Dose: 100 mls/hr Sodium Chloride 35 meq/Potassium Chloride 30 meq/Magnesium Sulfate 6 meq/ Calcium Gluconate 4.5 meq/Heparin Sodium (Porcine) 1,000 units/ Amino Acids 1, 035.9052 mls @ 63 mls/hr IV .[id number] [facility] Stop: 03/09/17 17:59 Last Admin: 03/09/17 11:04 Dose: 63 mls/hr Sodium Chloride 35 meq/Potassium Chloride 30 meq/Magnesium Sulfate 6 meq/ Calcium Gluconate 4.5 meq/Heparin Sodium (Porcine) 1,000 units/ Multivitamins/ Vitamin C 10 ml/ Amino Acids 1,045.9052 mls @ 63 mls/hr IV .[id number] [facility] Stop: 03/10/17 10:36 Sodium Chloride 35 meq/Potassium Chloride 30 meq/Magnesium Sulfate 6 meq/ Calcium Gluconate 4.5 meq/Heparin Sodium (Porcine) 1,000 units/ Amino Acids 1, 035.9052 mls @ 63 mls/hr IV .[id number] [facility] Stop: 03/10/17 17:59 Insulin Glargine (Lantus) 25 unit SC HS [facility] Last Admin: 03/08/17 22:48 Dose: Not Given Insulin Human Regular (Novolin R) 0 unit SC ACHS [facility] PRN Reason: Protocol Last Admin: 03/09/17 13:10 Dose: 4 unit Latanoprost (Xalatan Opht) 0.02 ml OU HS [facility] Last Admin: 03/08/17 21:28 Dose: 0.02 ml Losartan Potassium (Cozaar) 100 mg PO DAILY [facility] Last Admin: 03/09/17 09:44 Dose: Not Given Pantoprazole Sodium (Protonix Inj) 40 mg IVP Q12H [facility] Last Admin: 03/09/17 03:11 Dose: 40 mg Rosuvastatin Calcium (Crestor) 10 mg PO HS [facility] Last Admin: 03/08/17 21:25 Dose: 10 mg Timolol Maleate (Timoptic 0.5% Oph Soln) 1 drop OU BID [facility] Last Admin: 03/09/17 09:44 Dose: 1 drop Vitamin B Complex/Vit C/Folic Acid (Nephro-Alonzo) 1 tab PO 0800 [facility] Last Admin: 03/09/17 08:07 Dose: Not Given - Labs Labs: 03/09/17 07:31 03/09/17 07:31 PT 12.3 SECONDS (9.7-12.2) H 02/18/17 05:30 INR 1.1 02/18/17 05:30 APTT 30 SECONDS (21-34) 02/18/17 05:30 - Constitutional Appears: Chronically Ill - Head Exam Head Exam: NORMOCEPHALIC - Respiratory Exam Respiratory Exam: NORMAL BREATHING PATTERN - Cardiovascular Exam Cardiovascular Exam: REGULAR RHYTHM - GI/Abdominal Exam GI & Abdominal Exam: Soft. absent: Tenderness Assessment and Plan (1) Clostridium difficile colitis Assessment & Plan: Recent stool test negative Managed by ID Status: Acute (2) Change in mental status Assessment & Plan: Management per medicine Status: Acute (3) End stage renal disease on dialysis Assessment & Plan: On Dialysis Electrolyte problems. Management deferred to Renal and Medicine Status: Acute (4) Heel ulcer Status: Acute (5) IDDM (insulin dependent diabetes mellitus) Status: Chronic (6) Dysphagia Assessment & Plan: Poor PO intake Duodenal ulcers Recommned: Consider NG feeds in place of PPN if PO intake is inadequate Status: Acute (7) PUD (peptic ulcer disease) Assessment & Plan: Continue IV Protonix Status: Acute
--- NOTE | 2017-03-09 17:41 | CP.PCM.PN ---
Subjective - Date & Time of Evaluation Date of Evaluation: 03/09/17 Time of Evaluation: 13:00 - Subjective Subjective: NO CHANGE IN CLINICAL CONDITIONS D/W ON THE BED SIDE ON HD T T S Objective - Vital Signs/Intake and Output Vital Signs (last 24 hours): Temp Pulse Resp BP Pulse Ox 97.3 F L 74 18 142/54 L 98 03/09/17 13:08 03/09/17 13:08 03/09/17 13:08 03/09/17 13:08 03/09/17 13:08 - Medications Medications: Current Medications Acetaminophen (Tylenol 325mg Tab) 650 mg PO Q6 PRN PRN Reason: Pain, Mild (1-3) Last Admin: 03/07/17 18:20 Dose: 650 mg Amlodipine Besylate (Norvasc) 5 mg PO DAILY [facility] Last Admin: 03/09/17 09:44 Dose: Not Given Ascorbic Acid (Vitamin C 500 Mg Tab) 500 mg PO DAILY [facility] Last Admin: 03/09/17 09:45 Dose: Not Given Brimonidine Tartrate (Alphagan 0.2% Opht) 1 ml OU TID [facility] Last Admin: 03/09/17 17:24 Dose: 1 drop Colchicine (Colocrys) 0.6 mg PO BID [facility] Last Admin: 03/09/17 17:13 Dose: 0.6 mg Collagenase (Santyl) 0 gm TOP DAILY [facility] Last Admin: 03/09/17 09:44 Dose: Not Given Dextrose (Dextrose 50% Inj) 0 ml IV STAT PRN; Protocol PRN Reason: Hyglycemia Protocol Dextrose (Glutose 15) 0 gm PO ONCE PRN; Protocol PRN Reason: Hypoglycemia Protocol Epoetin Maxwell (Procrit) 10,000 unit IV TTS [facility] Last Admin: 03/07/17 11:29 Dose: 10,000 unit Ergocalciferol (Drisdol 50,000 Intl Units Cap) 1 cap PO QWK [facility] Last Admin: 03/05/17 14:54 Dose: 1 cap Furosemide (Lasix) 40 mg PO DAILY [facility] Last Admin: 03/09/17 09:44 Dose: Not Given Glucagon (Glucagen Diagnostic Kit) 0 mg IM STAT PRN; Protocol PRN Reason: Hypoglycemia Protocol Heparin Sodium (Porcine) (Heparin) 5,000 units SC Q8 [facility] Last Admin: 03/09/17 14:24 Dose: 5,000 units Heparin Sodium (Porcine) (Heparin) 3,700 units IVP TTS [facility] Stop: 03/24/17 23:59 Last Admin: 03/07/17 11:20 Dose: 3,700 units Hydralazine HCl (Apresoline) 25 mg PO BID [facility] Last Admin: 03/09/17 17:12 Dose: 25 mg Hydromorphone HCl (Dilaudid) 0.5 mg IVP Q4H PRN PRN Reason: Pain, severe (8-10) Last Admin: 03/09/17 11:15 Dose: 0.5 mg Tigecycline 50 mg/ Sodium (Chloride) 100 mls @ 100 mls/hr IVPB Q12H [facility] Last Admin: 03/09/17 07:57 Dose: 100 mls/hr Fluconazole (Diflucan Iv 200 Mg/100 Ml Ns) 100 mls @ 100 mls/hr IVPB DAILY [facility] Last Admin: 03/09/17 09:40 Dose: 100 mls/hr Sodium Chloride 35 meq/Potassium Chloride 30 meq/Magnesium Sulfate 6 meq/ Calcium Gluconate 4.5 meq/Heparin Sodium (Porcine) 1,000 units/ Amino Acids 1, 035.9052 mls @ 63 mls/hr IV .[id number] [facility] Stop: 03/09/17 17:59 Last Admin: 03/09/17 11:04 Dose: 63 mls/hr Sodium Chloride 35 meq/Potassium Chloride 30 meq/Magnesium Sulfate 6 meq/ Calcium Gluconate 4.5 meq/Heparin Sodium (Porcine) 1,000 units/ Multivitamins/ Vitamin C 10 ml/ Amino Acids 1,045.9052 mls @ 63 mls/hr IV .[id number] [facility] Stop: 03/10/17 10:36 Last Admin: 03/09/17 17:13 Dose: 63 mls/hr Sodium Chloride 35 meq/Potassium Chloride 30 meq/Magnesium Sulfate 6 meq/ Calcium Gluconate 4.5 meq/Heparin Sodium (Porcine) 1,000 units/ Amino Acids 1, 035.9052 mls @ 63 mls/hr IV .[id number] [facility] Stop: 03/10/17 17:59 Insulin Glargine (Lantus) 25 unit SC HS [facility] Last Admin: 03/08/17 22:48 Dose: Not Given Insulin Human Regular (Novolin R) 0 unit SC ACHS [facility] PRN Reason: Protocol Last Admin: 03/09/17 17:11 Dose: 6 unit Latanoprost (Xalatan Opht) 0.02 ml OU HS [facility] Last Admin: 03/08/17 21:28 Dose: 0.02 ml Losartan Potassium (Cozaar) 100 mg PO DAILY [facility] Last Admin: 03/09/17 09:44 Dose: Not Given Pantoprazole Sodium (Protonix Inj) 40 mg IVP Q12H [facility] Last Admin: 03/09/17 17:11 Dose: 40 mg Rosuvastatin Calcium (Crestor) 10 mg PO HS [facility] Last Admin: 03/08/17 21:25 Dose: 10 mg Timolol Maleate (Timoptic 0.5% Oph Soln) 1 drop OU BID [facility] Last Admin: 03/09/17 17:24 Dose: 1 drop Vitamin B Complex/Vit C/Folic Acid (Nephro-Alonzo) 1 tab PO 0800 [facility] Last Admin: 03/09/17 08:07 Dose: Not Given - Labs Labs: 03/09/17 07:31 03/09/17 07:31 PT 12.3 SECONDS (9.7-12.2) H 02/18/17 05:30 INR 1.1 02/18/17 05:30 APTT 30 SECONDS (21-34) 02/18/17 05:30 Assessment and Plan - Assessment and Plan (Free Text) Assessment: ESRD ON HD T T S .. TO BE CONTINUED ANEMIA OF CKD .. H/H STABLE MULTIPLE CO MORBIDITIES C/O CURRENT CARE C/O PRESENT MEDS
--- NOTE | 2017-03-09 18:31 | CARD ---
APPROVED REPORT EXAM: Two-dimensional and M-mode echocardiogram with Doppler and color Doppler. Other Information Quality : AverageRhythm : NSR INDICATION Pericardial Effusion Pleural Effusion M-Mode DIMENSIONS RVDd0.42 (2.1-3.2cm)Left Atrium (MM)3.91 (2.5-4.0cm) IVSd1.84 (0.7-1.1cm)Aortic Root2.66 (2.2-3.7cm) LVDd5.03 (4.0-5.6cm)Aortic Cusp Exc.1.51 (1.5-2.0cm) PWd1.77 (0.7-1.1cm)FS (%) 33 % LVDs3.37 (2.0-3.8cm)LVEF (%)61 (>50%) Aortic Valve AoV Peak Iljzxufy705.5cm/Lcua Peak GR.18mmHgAI P 1/2 [id number] Mitral Valve MV E Ulgehdhn114.6cm/sMV A Hsghagmz879.3cm/sE/A ratio1.0 TDI E/Lateral E'0.0E/Medial E'0.0 Tricuspid Valve TR Peak [id number]/sTR Peak Gr.[id number] LEFT VENTRICLE There is mild to moderate concentric left ventricular hypertrophy. The left ventricular systolic function is normal. The left ventricular ejection fraction is within the normal range. There is normal LV segmental wall motion. Transmitral Doppler flow pattern is Grade II-pseudonormal filling dynamics. Elevated left atrial pressure by Tissue Doppler. RIGHT VENTRICLE The right ventricle is normal size. The right ventricular systolic function is normal. ATRIA The left atrium is borderline to mildly dilated. The right atrium size is normal. AORTIC VALVE The aortic valve is mildly calcified but opens well. There is trace to mild aortic regurgitation. MITRAL VALVE The mitral valve is normal in structure. There is no mitral valve regurgitation noted. TRICUSPID VALVE The tricuspid valve is normal in structure. There is moderate tricuspid regurgitation. Right ventricular systolic pressure is estimated at 48 mmHg. There is moderate pulmonary hypertension. PULMONIC VALVE There is trace to mild pulmonic valvular regurgitation. GREAT VESSELS The aortic root displays mild to moderate sclerocalcific changes. The IVC is normal in size and collapses >50% with inspiration. PERICARDIAL EFFUSION There is a small-moderate circumferential pericardial effusion. No evidence of tamponade. <Conclusion> There is mild to moderate concentric left ventricular hypertrophy. The left ventricular systolic function is normal. There is normal LV segmental wall motion. Transmitral Doppler flow pattern is Grade II-pseudonormal filling dynamics. Elevated left atrial pressure by Tissue Doppler. The right ventricular systolic function is normal. Aortic valve sclerosis. There is trace to mild aortic regurgitation. There is moderate pulmonary hypertension. Right ventricular systolic pressure is estimated - 48 mmHg. The aortic root displays mild to moderate sclerocalcific changes. There is a small-moderate circumferential pericardial effusion. No evidence of tamponade.
[2017-03-09] MEDS: (Lantus) Insulin Glargine, Recombinant SC SCH (22:22)
[2017-03-09] MEDS: Latanoprost 2.5 ml Opht Soln OU SCH (22:23)
--- NOTE | 2017-03-10 07:05 | CP.PCM.PN ---
<Piyush Segura - Last Filed: 03/10/17 17:54> Subjective - Date & Time of Evaluation Date of Evaluation: 03/10/17 Time of Evaluation: 09:00 - Subjective Subjective: PGY-[address] Myrick Patient seen and examined. Patient is sleepy and unable to communicate with full words. ROS unable to ascertain. Patient able to recognize family and caregivers. Patient still refuses food but seems to be willing to drink some apple juice. Patient was witnessed this morning asking the aide where her was in slurred speech. Objective - Vital Signs/Intake and Output Vital Signs (last 24 hours): Temp Pulse Resp BP Pulse Ox 98.1 F 68 20 157/73 H 97 03/09/17 23:11 03/09/17 23:11 03/09/17 23:11 03/09/17 23:11 03/09/17 23:11 - Medications Medications: Current Medications Acetaminophen (Tylenol 325mg Tab) 650 mg PO Q6 PRN PRN Reason: Pain, Mild (1-3) Last Admin: 03/07/17 18:20 Dose: 650 mg Amlodipine Besylate (Norvasc) 5 mg PO DAILY [facility] Last Admin: 03/09/17 09:44 Dose: Not Given Ascorbic Acid (Vitamin C 500 Mg Tab) 500 mg PO DAILY [facility] Last Admin: 03/09/17 09:45 Dose: Not Given Brimonidine Tartrate (Alphagan 0.2% Opht) 1 ml OU TID [facility] Last Admin: 03/09/17 17:24 Dose: 1 drop Colchicine (Colocrys) 0.6 mg PO BID [facility] Last Admin: 03/09/17 17:13 Dose: 0.6 mg Collagenase (Santyl) 0 gm TOP DAILY [facility] Last Admin: 03/09/17 09:44 Dose: Not Given Dextrose (Dextrose 50% Inj) 0 ml IV STAT PRN; Protocol PRN Reason: Hyglycemia Protocol Dextrose (Glutose 15) 0 gm PO ONCE PRN; Protocol PRN Reason: Hypoglycemia Protocol Epoetin Maxwell (Procrit) 10,000 unit IV TTS [facility] Last Admin: 03/07/17 11:29 Dose: 10,000 unit Ergocalciferol (Drisdol 50,000 Intl Units Cap) 1 cap PO QWK [facility] Last Admin: 03/05/17 14:54 Dose: 1 cap Furosemide (Lasix) 40 mg PO DAILY [facility] Last Admin: 03/09/17 09:44 Dose: Not Given Glucagon (Glucagen Diagnostic Kit) 0 mg IM STAT PRN; Protocol PRN Reason: Hypoglycemia Protocol Heparin Sodium (Porcine) (Heparin) 5,000 units SC Q8 [facility] Last Admin: 03/10/17 06:24 Dose: 5,000 units Heparin Sodium (Porcine) (Heparin) 3,700 units IVP TTS [facility] Stop: 03/24/17 23:59 Last Admin: 03/07/17 11:20 Dose: 3,700 units Hydralazine HCl (Apresoline) 25 mg PO BID [facility] Last Admin: 03/09/17 17:12 Dose: 25 mg Hydromorphone HCl (Dilaudid) 0.5 mg IVP Q4H PRN PRN Reason: Pain, severe (8-10) Last Admin: 03/09/17 17:47 Dose: 0.5 mg Tigecycline 50 mg/ Sodium (Chloride) 100 mls @ 100 mls/hr IVPB Q12H [facility] Last Admin: 03/09/17 21:00 Dose: 100 mls/hr Fluconazole (Diflucan Iv 200 Mg/100 Ml Ns) 100 mls @ 100 mls/hr IVPB DAILY [facility] Last Admin: 03/09/17 09:40 Dose: 100 mls/hr Sodium Chloride 35 meq/Potassium Chloride 30 meq/Magnesium Sulfate 6 meq/ Calcium Gluconate 4.5 meq/Heparin Sodium (Porcine) 1,000 units/ Multivitamins/ Vitamin C 10 ml/ Amino Acids 1,045.9052 mls @ 63 mls/hr IV .[id number] [facility] Stop: 03/10/17 10:36 Last Admin: 03/09/17 17:13 Dose: 63 mls/hr Sodium Chloride 35 meq/Potassium Chloride 30 meq/Magnesium Sulfate 6 meq/ Calcium Gluconate 4.5 meq/Heparin Sodium (Porcine) 1,000 units/ Amino Acids 1, 035.9052 mls @ 63 mls/hr IV .[id number] [facility] Stop: 03/10/17 17:59 Insulin Glargine (Lantus) 25 unit SC HS [facility] Last Admin: 03/09/17 22:22 Dose: 25 unit Insulin Human Regular (Novolin R) 0 unit SC ACHS ELINA PRN Reason: Protocol Last Admin: 03/09/17 22:22 Dose: 3 unit Latanoprost (Xalatan Opht) 0.02 ml OU HS [facility] Last Admin: 03/09/17 22:23 Dose: 0.02 ml Losartan Potassium (Cozaar) 100 mg PO DAILY [facility] Last Admin: 03/09/17 09:44 Dose: Not Given Pantoprazole Sodium (Protonix Inj) 40 mg IVP Q12H [facility] Last Admin: 03/10/17 04:39 Dose: 40 mg Rosuvastatin Calcium (Crestor) 10 mg PO HS [facility] Last Admin: 03/09/17 22:23 Dose: Not Given Timolol Maleate (Timoptic 0.5% Ophth Soln) 1 drop OU BID [facility] Last Admin: 03/09/17 17:24 Dose: 1 drop Vitamin B Complex/Vit C/Folic Acid (Nephro-Alonzo) 1 tab PO 0800 [facility] Last Admin: 03/09/17 08:07 Dose: Not Given - Labs Labs: 03/09/17 07:31 03/09/17 07:31 PT 12.3 SECONDS (9.7-12.2) H 02/18/17 05:30 INR 1.1 02/18/17 05:30 APTT 30 SECONDS (21-34) 02/18/17 05:30 - Constitutional Appears: No Acute Distress - Head Exam Head Exam: ATRAUMATIC, NORMOCEPHALIC - Eye Exam Eye Exam: EOMI, PERRL - ENT Exam ENT Exam: Mucous Membranes Moist - Respiratory Exam Respiratory Exam: Clear to Ausculation Bilateral, NORMAL BREATHING PATTERN. absent: Rales, Rhonchi, Wheezes - Cardiovascular Exam Cardiovascular Exam: REGULAR RHYTHM, +S1, +S2 - GI/Abdominal Exam GI & Abdominal Exam: Soft, Normal Bowel Sounds. absent: Tenderness - Extremities Exam Extremities Exam: absent: Calf Tenderness, Pedal Edema Additional comments: Chronic venous stasis changes bilaterally in the legs Left foot ulcer with 10x5 cm eschar spanning lateral plantar surface s/p debridement with wound vac in place for left foot wound. - Neurological Exam Neurological Exam: Alert, Awake - Skin Skin Exam: Dry, Pallor Assessment and Plan - Assessment and Plan (Free Text) Plan: 1. Non-Healing Left Heel Ulcer 03/02: Wound vac was replaced this afternoon. Gram positive cocci grew in the blood cultures. 03/01: POD #2 s/p debridement of L foot ulcer. Patient's WBC increased to 21.7 with left shift. Lactate 2.8--> repeat 1.9; recheck blood cultures today. Plan to change wound vac on foot tomorrow. 02/26/17: Patient underwent aortofemoral angiogram via right groin with selective catheterization of left anterior femoral artery. Balloon angioplasty of popliteal artery. Pathway arthrectomy and balloon angioplasty of anterior tibial artery. 02/27/17: Debridement of left foot ulcer with wound vac placed and cultures taken. Podiatry consult - Dr. Avery, help appreciated Infectious Disease Dr. Wellington consulted, help appreciated. Dr. Broussard on board, help appreciated. Low ext arterial duplex (02/04/17): R- occlusion R post tib artery, 50-75% stenosis right mid popliteal & proximal anterior tib arteries L- occlusion of left post tib artery, >75% stenosis left proximal ant tibial artery, 50-75% stenosis left distal SFA & proximal popliteal a. Vancomycin 1000 mg IV [facility] D/C'ed on 02/22/17 Cefepime 1 gm IV Q24H 02/18/17 to 02/23/17 Zyvox 600 mg PO BID started 02/22/17-02/23/17 Current antibiotics: Tygacil 100 mg loading dose on 02/25/17 and then continued as Tygacil 50 mg IV Q12H Abdominal Angiography 02/19/17: Severe bilateral lower extremity arterial runoff with 1 vessel likely remaining patent at the right. None is continuously patent at the left lower extremity [id number]. Widely patent abdominal aorta and iliac arterial system with moderate right and [id number] left femoral arterial disease. Severe bilateral popliteal artery arterial disease. Dr. Avery recommended Left BKA given his physical exam findings. Dr. Broussard also recommends the left BKA. He stated that even if the gangrenous portion is removed, it will not heal regardless of revascularization. As of 02/25, the patient's family has decided for her to stay and have Dr. Broussard clean the wound and improve the circulation in the leg. Before this, they were adamant about getting the patient to [facility] for hyperbaric therapy to try to salvage the leg. They still do not wish for amputation at this time. Colchicine 0.6 mg PO BID added on 03/08/17 for anti-inflammatory properties. Patient is already on hemodialysis. Dilaudid 0.5 mg IV Q4 prn pain 2. Left Pleural Effusion 03/02: 500 cc clear fluid drained from the left pleura 03/01: Chest X-ray ordered showed left sided pleural effusion new since admission (see full report) f/u CT chest without contrast Ordered thoracentesis with fluid studies Consulted Grease Mon[employer] Dr John- will f/u recommendations 3. C. Diff C. Diff studies positive Patient on isolation contact precaution Vancomycin 125 mg PO QID started--discontinued Dr. Wellington added Flagyl 500 mg IV [id number] repeat C diff and stool culture on 02/28--negative 4. Altered Mental Status 03/01: Patient obtunded this AM due to Gabapentin that was given night prior ( renally excreted). Gabapentin was discontinued. Repeat CT head without contrast was ordered this morning which was negative for acute infarct. Avoid pain medications that are renally excreted at this time. CT Head negative for Acute Territorial Infarction Patient found hypoglycemic by both and EMS with symptoms that suggest seizure episode. Patient is a poorly controlled diabetic. Monitor Accuchecks qACHS and Q4H Patient likely had an episode of neuroglycopenia and currently in post-ictal state. Due to post-ictal state, decision made to avoid narcotic pain medications. CHARGE ACCOUNT IDENTIFICATION CLERK performed successful bedside swallow eval and recommended Pureed diet with thin liquids. Home PO meds restarted. Neurology consult Dr. Tanisha Aguirre, help appreciated. Thiamine 100 mg Q8H Could not get brain MRI which was neuro's recommendation due to 3 previous attempts where patient was moving too much. We do not wish to further sedate the patient due to her current mental state, so instead a repeat CT Head without contrast was done on 02/23/17. This CT head did not demonstrate any acute hemorrhagic or ischemic pathology. 5. End Stage Renal Disease on Hemodialysis On HD T,,S Dr. Ambrose nephrology consulted- help appreciated 6. Decreased oral intake Will discuss possibility of PEG tube with patient's family 03/01: Patient unable to eat due to altered mental status. Status changed to NPO at this time. Starting TPN for nutrition to be given via PICC line. 03/05/17: TPN changed to increase proteins per dietary's recommendations. -Diflucan was added empirically by GI team. 7. Hypertension 03/02: Patient resumed oral BP medications today and tolerated without issue. 03/01: Patient normotensive, held oral BP medications due to NPO status. Given Lasix 20mg IV x1 dose. Will monitor BP q4h and given medications as needed. PO Home medications: * Norvasc 5 mg PO daily * Losartan 100 mg PO daily * Furosemide 40 mg PO daily--held * Held Bumex for now Monitor BP q6h and adjust meds as needed 8. Anemia of Chronic Disease Hgb stable Likely secondary to ESRD Dr. Ambrose put for IV ferlicet 125 mg and Procrit 10,000 units IV Monitor CBC daily 9. Diabetes 03/01: Patient having multiple episodes of hypoglycemia causing mental status change. Stopping standing insulin. See ROBOT OPERATOR note for more information. Accuchecks qACHS [facility] Home Lantus 30 units SC HS- reduced to 15 units HS Lantus increased to 25 units on 03/06/[address] Myrick her sliding scale coverage for the last few days Crestor 10mg PO HS 10. Prophylactic Measures SCDs Heparin 5000 units SC Q8H 1:1 observation due to agitation. Patient tries to get out of bed. Fall precautions Palliative care consulted. Dietary consulted for recommendations for TPN Disposition: This patient has a very poor prognosis. The family wishes to try to save the leg despite multiple professional opinions on the necessity of an amputation. The family initially wished for the patient to go to [facility] where hyperbaric therapy is available in order to promote healing. They wished to be cared for by their personal translator Dr. Ware; however, Dr. Ware has become unavailable. So the family decided to remain at [facility] and attempt healing via vascular surgery to improve circulation and wound debridement of damaged tissue. They were repeatedly warned by multiple medical device of the risks associated with refusing a BKA and attempting to salvage the foot. The family verbalized understanding of the risks but still decide against a BKA at this time. Case DW Dr. Ramez Segura PGY-1 <Benson Myrick Jr. - Last Filed: 03/14/17 11:06> Objective - Vital Signs/Intake and Output Vital Signs (last 24 hours): Temp Pulse Resp BP Pulse Ox 99 F 89 20 155/64 H 97 03/14/17 08:01 03/14/17 08:01 03/14/17 08:01 03/14/17 08:01 03/14/17 08:01 - Medications Medications: Current Medications Acetaminophen (Tylenol 325mg Tab) 650 mg PO Q6 PRN PRN Reason: Pain, Mild (1-3) Last Admin: 03/11/17 17:49 Dose: 650 mg Amlodipine Besylate (Norvasc) 5 mg PO DAILY [facility] Last Admin: 03/13/17 09:14 Dose: 5 mg Brimonidine Tartrate (Alphagan 0.2% Opht) 1 ml OU TID [facility] Last Admin: 03/13/17 17:53 Dose: 1 drop Collagenase (Santyl) 0 gm TOP DAILY [facility] Last Admin: 03/13/17 10:00 Dose: Not Given Dextrose (Dextrose 50% Inj) 0 ml IV STAT PRN; Protocol PRN Reason: Hyglycemia Protocol Dextrose (Glutose 15) 0 gm PO ONCE PRN; Protocol PRN Reason: Hypoglycemia Protocol Epoetin Maxwell (Procrit) 10,000 unit IV TTS [facility] Last Admin: 03/12/17 10:19 Dose: 10,000 unit Glucagon (Glucagen Diagnostic Kit) 0 mg IM STAT PRN; Protocol PRN Reason: Hypoglycemia Protocol Heparin Sodium (Porcine) (Heparin) 5,000 units SC Q8 [facility] Last Admin: 03/14/17 05:07 Dose: 5,000 units Heparin Sodium (Porcine) (Heparin) 3,700 units IVP TTS [facility] Stop: 03/24/17 23:59 Last Admin: 03/12/17 10:22 Dose: 3,700 units Hydralazine HCl (Apresoline) 25 mg PO BID [facility] Last Admin: 03/13/17 17:52 Dose: 25 mg Hydromorphone HCl (Dilaudid) 0.5 mg IVP Q4H PRN PRN Reason: Pain, severe (8-10) Last Admin: 03/14/17 06:06 Dose: 0.5 mg Tigecycline 50 mg/ Sodium (Chloride) 100 mls @ 100 mls/hr IVPB Q12H [facility] Last Admin: 03/13/17 20:47 Dose: 100 mls/hr Fluconazole (Diflucan Iv 200 Mg/100 Ml Ns) 100 mls @ 100 mls/hr IVPB DAILY [facility] Last Admin: 03/13/17 10:36 Dose: 100 mls/hr Insulin Glargine (Lantus) 25 unit SC HS [facility] Last Admin: 03/12/17 22:13 Dose: 25 unit Insulin Human Regular (Novolin R) 0 unit SC ACHS ELINA PRN Reason: Protocol Last Admin: 03/13/17 22:08 Dose: Not Given Latanoprost (Xalatan Opht) 0.02 ml OU HS [facility] Last Admin: 03/13/17 22:03 Dose: 0.02 ml Losartan Potassium (Cozaar) 100 mg PO DAILY [facility] Last Admin: 03/13/17 09:14 Dose: 100 mg Pantoprazole Sodium (Protonix Inj) 40 mg IVP Q12H [facility] Last Admin: 03/14/17 03:55 Dose: 40 mg Rosuvastatin Calcium (Crestor) 10 mg PO HS [facility] Last Admin: 03/13/17 22:05 Dose: 10 mg Timolol Maleate (Timoptic 0.5% Oph Soln) 1 drop OU BID [facility] Last Admin: 03/13/17 17:53 Dose: 1 drop - Labs Labs: 03/14/17 09:32 03/14/17 09:32 PT 12.3 SECONDS (9.7-12.2) H 02/18/17 05:30 INR 1.1 02/18/17 05:30 APTT 30 SECONDS (21-34) 02/18/17 05:30 Attending/Attestation - Attestation I have personally seen and examined this patient.: Yes I have fully participated in the care of the patient.: Yes I have reviewed all pertinent clinical information, including history, physical exam and plan: Yes Notes (Text): 03/14/17 11:05 Agree with plan of care and resident note findings
[2017-03-10] MEDS: (Novolin R) Insulin Human Regular 100 units/ml vial SC SCH ×4 (08:18→22:22)
[2017-03-10] MEDS: Multivitamin Vitamin B Complex (Nephro-Vite) Tab PO SCH (08:18)
[2017-03-10 08:34] LABS: POTASSIUM 5.8 mmol/L (3.6-5.2)
[2017-03-10 08:35] LABS: ALB/GLOB RATIO 0.8 (1.0-2.1); BILIRUBIN,TOTAL 0.6 mg/dL (0.2-1.3); CALCIUM 7.5 mg/dl (8.6-10.4); PHOSPHOROUS 4.2 mg/dL (2.5-4.5); TOTAL PROTEIN 4.2 g/dL (6.3-8.3)
[2017-03-10 08:36] LABS: MAGNESIUM 2.2 mg/dL (1.6-2.3)
[2017-03-10] MEDS: Epoetin Alfa 10,000 unit/ml Dialysis IV SCH (10:05)
[2017-03-10 10:13] LABS: BASO # 0.1 K/uL (0.0-0.2); BASO % 0.2 % (0.0-2.0); EOS # 0.3 K/uL (0.0-0.7); EOS % 1.3 % (0.0-4.0); HEMATOCRIT 28.8 % (34.0-47.0); LYMPH # 1.5 K/uL (1.0-4.3); LYMPH % 7.1 % (20.0-40.0); MEAN CELL VOLUME 92.8 fL (81.0-99.0); MEAN CORPUSCULAR HEMOGLOBIN 28.6 pg (27.0-31.0); MEAN CORPUSCULAR HGB CONC 30.9 g/dL (33.0-37.0); MEAN PLATELET VOLUME 9.3 fL (7.2-11.7); MONO # 1.5 K/uL (0.0-0.8); MONO % 7.2 % (0.0-10.0); PLATELET COUNT 342 K/uL (130-400); RED CELL DISTRIBUTION WIDTH 22.7 % (11.5-14.5); WHITE BLOOD COUNT 20.4 K/uL (4.8-10.8)
[2017-03-10] MEDS ORDERED: TPN IV SCH ×2 (10:37→18:00)
[2017-03-10 10:39] LABS: BASOPHIL 1 % (0-2); NEUTROPHIL 85 % (50-75); TOTAL CELLS COUNTED 100
[2017-03-10] MEDS: Fluconazole IV 200mg/100 ml NS 100 ML IVPB SCH (12:03)
[2017-03-10] MEDS: Brimonidine 0.2% Opth Sol (5ml) OU SCH ×3 (12:03→18:00)
[2017-03-10] MEDS: Collagenase 250 Units/gm Ointment(30 gm) TOP SCH (12:04)
--- NOTE | 2017-03-10 13:22 | CP.PCM.PN ---
Subjective - Date & Time of Evaluation Date of Evaluation: 03/10/17 Time of Evaluation: 13:02 - Subjective Subjective: patient is confused and is not offering any complaints. Objective - Vital Signs/Intake and Output Vital Signs (last 24 hours): Temp Pulse Resp BP Pulse Ox 98 F 75 16 144/58 L 100 03/10/17 09:50 03/10/17 09:50 03/10/17 09:50 03/10/17 11:50 03/10/17 09:50 Intake and Output: 03/10/17 03/10/17 06:59 18:59 Intake Total 624 Balance 624 - Medications Medications: Current Medications Acetaminophen (Tylenol 325mg Tab) 650 mg PO Q6 PRN PRN Reason: Pain, Mild (1-3) Last Admin: 03/07/17 18:20 Dose: 650 mg Amlodipine Besylate (Norvasc) 5 mg PO DAILY [facility] Last Admin: 03/10/17 12:03 Dose: Not Given Ascorbic Acid (Vitamin C 500 Mg Tab) 500 mg PO DAILY [facility] Last Admin: 03/10/17 12:04 Dose: Not Given Brimonidine Tartrate (Alphagan 0.2% Opht) 1 ml OU TID [facility] Last Admin: 03/10/17 12:03 Dose: Not Given Colchicine (Colocrys) 0.6 mg PO BID [facility] Last Admin: 03/10/17 12:03 Dose: Not Given Collagenase (Santyl) 0 gm TOP DAILY [facility] Last Admin: 03/10/17 12:04 Dose: Not Given Dextrose (Dextrose 50% Inj) 0 ml IV STAT PRN; Protocol PRN Reason: Hyglycemia Protocol Dextrose (Glutose 15) 0 gm PO ONCE PRN; Protocol PRN Reason: Hypoglycemia Protocol Epoetin Maxwell (Procrit) 10,000 unit IV TTS [facility] Last Admin: 03/10/17 10:05 Dose: 10,000 unit Ergocalciferol (Drisdol 50,000 Intl Units Cap) 1 cap PO QWK [facility] Last Admin: 03/05/17 14:54 Dose: 1 cap Furosemide (Lasix) 40 mg PO DAILY [facility] Last Admin: 03/09/17 09:44 Dose: Not Given Glucagon (Glucagen Diagnostic Kit) 0 mg IM STAT PRN; Protocol PRN Reason: Hypoglycemia Protocol Heparin Sodium (Porcine) (Heparin) 5,000 units SC Q8 [facility] Last Admin: 03/10/17 06:24 Dose: 5,000 units Heparin Sodium (Porcine) (Heparin) 3,700 units IVP TTS [facility] Stop: 03/24/17 23:59 Last Admin: 03/10/17 10:06 Dose: 3,700 units Hydralazine HCl (Apresoline) 25 mg PO BID [facility] Last Admin: 03/10/17 12:03 Dose: Not Given Hydromorphone HCl (Dilaudid) 0.5 mg IVP Q4H PRN PRN Reason: Pain, severe (8-10) Last Admin: 03/09/17 17:47 Dose: 0.5 mg Tigecycline 50 mg/ Sodium (Chloride) 100 mls @ 100 mls/hr IVPB Q12H [facility] Last Admin: 03/10/17 08:19 Dose: 100 mls/hr Fluconazole (Diflucan Iv 200 Mg/100 Ml Ns) 100 mls @ 100 mls/hr IVPB DAILY [facility] Last Admin: 03/10/17 12:03 Dose: Not Given Sodium Chloride 35 meq/Potassium Chloride 30 meq/Magnesium Sulfate 6 meq/ Calcium Gluconate 4.5 meq/Heparin Sodium (Porcine) 1,000 units/ Amino Acids 1, 035.9052 mls @ 63 mls/hr IV .[id number] [facility] Stop: 03/10/17 17:59 Sodium Chloride 35 meq/Potassium Chloride 30 meq/Magnesium Sulfate 6 meq/ Calcium Gluconate 4.5 meq/Heparin Sodium (Porcine) 1,000 units/ Multivitamins/ Vitamin C 10 ml/ Amino Acids 1,045.9052 mls @ 63 mls/hr IV .[id number] [facility] Stop: 03/11/17 10:36 Sodium Chloride 35 meq/Potassium Chloride 30 meq/Magnesium Sulfate 6 meq/ Calcium Gluconate 4.5 meq/Heparin Sodium (Porcine) 1,000 units/ Amino Acids 1, 035.9052 mls @ 63 mls/hr IV .[id number] [facility] Fat Emulsion Intravenous (Intralipid 20%) 500 mls @ 42 mls/hr IV ONCE ONE Stop: 03/11/17 05:54 Insulin Glargine (Lantus) 25 unit SC HS [facility] Last Admin: 03/09/17 22:22 Dose: 25 unit Insulin Human Regular (Novolin R) 0 unit SC ACHS [facility] PRN Reason: Protocol Last Admin: 03/10/17 08:18 Dose: 10 unit Latanoprost (Xalatan Opht) 0.02 ml OU HS [facility] Last Admin: 03/09/17 22:23 Dose: 0.02 ml Losartan Potassium (Cozaar) 100 mg PO DAILY [facility] Last Admin: 03/10/17 12:03 Dose: Not Given Pantoprazole Sodium (Protonix Inj) 40 mg IVP Q12H [facility] Last Admin: 03/10/17 04:39 Dose: 40 mg Rosuvastatin Calcium (Crestor) 10 mg PO HS [facility] Last Admin: 03/09/17 22:23 Dose: Not Given Timolol Maleate (Timoptic 0.5% Ophth Soln) 1 drop OU BID [facility] Last Admin: 03/10/17 12:04 Dose: Not Given Vitamin B Complex/Vit C/Folic Acid (Nephro-Alonzo) 1 tab PO 0800 [facility] Last Admin: 03/10/17 08:18 Dose: 1 tab - Labs Labs: 03/10/17 10:08 03/10/17 08:14 PT 12.3 SECONDS (9.7-12.2) H 02/18/17 05:30 INR 1.1 02/18/17 05:30 APTT 30 SECONDS (21-34) 02/18/17 05:30 - Constitutional Appears: Chronically Ill - Head Exam Head Exam: ATRAUMATIC, NORMAL INSPECTION, NORMOCEPHALIC - Eye Exam Eye Exam: EOMI, Normal appearance, PERRL Pupil Exam: NORMAL ACCOMODATION, PERRL - ENT Exam ENT Exam: Mucous Membranes Moist, Normal Exam - Neck Exam Neck Exam: Normal Inspection - Respiratory Exam Respiratory Exam: Decreased Breath Sounds, NORMAL BREATHING PATTERN - Cardiovascular Exam Cardiovascular Exam: REGULAR RHYTHM - GI/Abdominal Exam GI & Abdominal Exam: Soft, Hypoactive Bowel Sounds - Rectal Exam Rectal Exam: Deferred - Extremities Exam Additional comments: Left foot wound vac on - Back Exam Back Exam: NORMAL INSPECTION - Neurological Exam Neurological Exam: Alert, Altered - Psychiatric Exam Psychiatric exam: Flat Affect - Skin Skin Exam: Pallor Assessment and Plan - Assessment and Plan (Free Text) Assessment: Patient was at HD at time of exam. at bed side. Patient is confused, speech is not clear, looking very pale. Husbands claims , patient makes sense when he talks to her. Patient makes eye contacts and purposeless movements. The left foot wound vac in place. Patient is still receiving IV antibiotics and IV nutrition. Albumin 1.9 regardless. Hb 8.9 and WBC 22.2 Goals of care discussed with , Mr. Navarrete. Mr. Navarrete admits being very angry, he blaims the health care system for what happened to his and is not receptive to the suggestions. I reviewed patient's clinical presentation and tried to help him understand how the infected foot has influenced the entire system. I especially pointed out the poor nutrition due to confusion and poor PO intake. Very gently I introduced the possibility of PEG insertion. Mr. Navarrete was not very receptive as he was focused on what happened in the past and why , in his mind, his was not given appropriate and timely care. Mr. Navarrete has high hope in Doctor Ramez and looks up to him for help. I supported him. Impression * This is very sick lady with infected foot , positive blood cultures and poor PO intake * is very firmly against proposed amputation of non healing wound * Patient is confused and unable to decide for her self * Malnutrition puts patient in risk for further deconditioning Suggestion * Some way of artificial nutrition is needed to support this patient with recovery and faster wound healing * Patient's will need a lot of counseling and support especially if condition worsens * Remains Full Code
[2017-03-10] MEDS: HYDROmorphone 0.5 mg/0.5 ml ISec IVP PRN ×2 (14:48→18:47)
[2017-03-10] MEDS ORDERED: Fat Emulsion 20% IV 500 ML IV ONE (18:00)
--- NOTE | 2017-03-10 18:23 | CP.PCM.PN ---
Subjective - Date & Time of Evaluation Date of Evaluation: 03/10/17 Time of Evaluation: 18:20 - Subjective Subjective: F/U Hypo Na, poor po., anemia is present Objective - Vital Signs/Intake and Output Vital Signs (last 24 hours): Temp Pulse Resp BP Pulse Ox 97.9 F 73 18 145/71 97 03/10/17 15:24 03/10/17 15:24 03/10/17 15:24 03/10/17 15:24 03/10/17 15:24 Intake and Output: 03/10/17 03/10/17 06:59 18:59 Intake Total 624 Balance 624 - Medications Medications: Current Medications Acetaminophen (Tylenol 325mg Tab) 650 mg PO Q6 PRN PRN Reason: Pain, Mild (1-3) Last Admin: 03/07/17 18:20 Dose: 650 mg Amlodipine Besylate (Norvasc) 5 mg PO DAILY [facility] Last Admin: 03/10/17 12:03 Dose: Not Given Ascorbic Acid (Vitamin C 500 Mg Tab) 500 mg PO DAILY [facility] Last Admin: 03/10/17 12:04 Dose: Not Given Brimonidine Tartrate (Alphagan 0.2% Opht) 1 ml OU TID [facility] Last Admin: 03/10/17 18:00 Dose: 1 drop Colchicine (Colocrys) 0.6 mg PO BID [facility] Last Admin: 03/10/17 18:19 Dose: Not Given Collagenase (Santyl) 0 gm TOP DAILY [facility] Last Admin: 03/10/17 12:04 Dose: Not Given Dextrose (Dextrose 50% Inj) 0 ml IV STAT PRN; Protocol PRN Reason: Hyglycemia Protocol Dextrose (Glutose 15) 0 gm PO ONCE PRN; Protocol PRN Reason: Hypoglycemia Protocol Epoetin Maxwell (Procrit) 10,000 unit IV TTS [facility] Last Admin: 03/10/17 10:05 Dose: 10,000 unit Ergocalciferol (Drisdol 50,000 Intl Units Cap) 1 cap PO QWK [facility] Last Admin: 03/05/17 14:54 Dose: 1 cap Furosemide (Lasix) 40 mg PO DAILY [facility] Last Admin: 03/09/17 09:44 Dose: Not Given Glucagon (Glucagen Diagnostic Kit) 0 mg IM STAT PRN; Protocol PRN Reason: Hypoglycemia Protocol Heparin Sodium (Porcine) (Heparin) 5,000 units SC Q8 [facility] Last Admin: 03/10/17 13:26 Dose: 5,000 units Heparin Sodium (Porcine) (Heparin) 3,700 units IVP TTS [facility] Stop: 03/24/17 23:59 Last Admin: 03/10/17 10:06 Dose: 3,700 units Hydralazine HCl (Apresoline) 25 mg PO BID [facility] Last Admin: 03/10/17 18:19 Dose: Not Given Hydromorphone HCl (Dilaudid) 0.5 mg IVP Q4H PRN PRN Reason: Pain, severe (8-10) Last Admin: 03/10/17 14:48 Dose: 0.5 mg Tigecycline 50 mg/ Sodium (Chloride) 100 mls @ 100 mls/hr IVPB Q12H [facility] Last Admin: 03/10/17 08:19 Dose: 100 mls/hr Fluconazole (Diflucan Iv 200 Mg/100 Ml Ns) 100 mls @ 100 mls/hr IVPB DAILY [facility] Last Admin: 03/10/17 12:03 Dose: Not Given Sodium Chloride 35 meq/Potassium Chloride 30 meq/Magnesium Sulfate 6 meq/ Calcium Gluconate 4.5 meq/Heparin Sodium (Porcine) 1,000 units/ Multivitamins/ Vitamin C 10 ml/ Amino Acids 1,045.9052 mls @ 63 mls/hr IV .[id number] [facility] Stop: 03/11/17 10:36 Last Admin: 03/10/17 18:03 Dose: 63 mls/hr Sodium Chloride 35 meq/Potassium Chloride 30 meq/Magnesium Sulfate 6 meq/ Calcium Gluconate 4.5 meq/Heparin Sodium (Porcine) 1,000 units/ Amino Acids 1, 035.9052 mls @ 63 mls/hr IV .[id number] [facility] Fat Emulsion Intravenous (Intralipid 20%) 500 mls @ 42 mls/hr IV ONCE ONE Stop: 03/11/17 05:54 Last Admin: 03/10/17 18:00 Dose: 42 mls/hr Insulin Glargine (Lantus) 25 unit SC HS [facility] Last Admin: 03/09/17 22:22 Dose: 25 unit Insulin Human Regular (Novolin R) 0 unit SC ACHS [facility] PRN Reason: Protocol Last Admin: 03/10/17 17:31 Dose: 4 unit Latanoprost (Xalatan Opht) 0.02 ml OU HS [facility] Last Admin: 03/09/17 22:23 Dose: 0.02 ml Losartan Potassium (Cozaar) 100 mg PO DAILY [facility] Last Admin: 03/10/17 12:03 Dose: Not Given Pantoprazole Sodium (Protonix Inj) 40 mg IVP Q12H [facility] Last Admin: 03/10/17 16:05 Dose: 40 mg Rosuvastatin Calcium (Crestor) 10 mg PO HS [facility] Last Admin: 03/09/17 22:23 Dose: Not Given Timolol Maleate (Timoptic 0.5% Ophth Soln) 1 drop OU BID [facility] Last Admin: 03/10/17 18:00 Dose: 1 drop Vitamin B Complex/Vit C/Folic Acid (Nephro-Alonzo) 1 tab PO 0800 [facility] Last Admin: 03/10/17 08:18 Dose: 1 tab - Labs Labs: 03/10/17 10:08 03/10/17 08:14 PT 12.3 SECONDS (9.7-12.2) H 02/18/17 05:30 INR 1.1 02/18/17 05:30 APTT 30 SECONDS (21-34) 02/18/17 05:30 - Constitutional Appears: Confused - Respiratory Exam Respiratory Exam: Clear to Ausculation Bilateral - Cardiovascular Exam Cardiovascular Exam: RRR - GI/Abdominal Exam GI & Abdominal Exam: Soft, Normal Bowel Sounds. absent: Tenderness, Mass - Extremities Exam Extremities Exam: absent: Calf Tenderness - Neurological Exam Neurological Exam: Awake. absent: Oriented x3 Assessment and Plan (1) Elevated WBC count Status: Acute (2) PUD (peptic ulcer disease) Status: Acute (3) Change in mental status Status: Acute (4) Clostridium difficile colitis Status: Acute (5) Dysphagia Assessment & Plan: On PPN. Consider NG tube feeding Status: Acute (6) End stage renal disease on dialysis Status: Acute (7) IDDM (insulin dependent diabetes mellitus) Status: Chronic (8) Heel ulcer Status: Acute (9) Pleural effusion Status: Acute (10) Pericardial effusion Status: Acute (11) Hyponatremia Status: Acute (12) UTI (urinary tract infection) Status: Acute (13) Nutrition disorder Assessment & Plan: PPN. Consider NG tube Status: Acute
--- NOTE | 2017-03-10 18:30 | CP.PCM.PN ---
Subjective - Date & Time of Evaluation Date of Evaluation: 03/10/17 Time of Evaluation: 14:00 - Subjective Subjective: SEEN ON RENAL F/U SEEN ON HD .. VSS ALERT AND RESPONSIVE .. IN NAD HS IS GOING WELL WILL USE THE AVF WITH ONE NEEDLE Objective - Vital Signs/Intake and Output Vital Signs (last 24 hours): Temp Pulse Resp BP Pulse Ox 97.9 F 73 18 145/71 97 03/10/17 15:24 03/10/17 15:24 03/10/17 15:24 03/10/17 15:24 03/10/17 15:24 Intake and Output: 03/10/17 03/10/17 06:59 18:59 Intake Total 624 Balance 624 - Medications Medications: Current Medications Acetaminophen (Tylenol 325mg Tab) 650 mg PO Q6 PRN PRN Reason: Pain, Mild (1-3) Last Admin: 03/07/17 18:20 Dose: 650 mg Amlodipine Besylate (Norvasc) 5 mg PO DAILY [facility] Last Admin: 03/10/17 12:03 Dose: Not Given Ascorbic Acid (Vitamin C 500 Mg Tab) 500 mg PO DAILY [facility] Last Admin: 03/10/17 12:04 Dose: Not Given Brimonidine Tartrate (Alphagan 0.2% Opht) 1 ml OU TID [facility] Last Admin: 03/10/17 18:00 Dose: 1 drop Colchicine (Colocrys) 0.6 mg PO BID [facility] Last Admin: 03/10/17 18:19 Dose: Not Given Collagenase (Santyl) 0 gm TOP DAILY [facility] Last Admin: 03/10/17 12:04 Dose: Not Given Dextrose (Dextrose 50% Inj) 0 ml IV STAT PRN; Protocol PRN Reason: Hyglycemia Protocol Dextrose (Glutose 15) 0 gm PO ONCE PRN; Protocol PRN Reason: Hypoglycemia Protocol Epoetin Maxwell (Procrit) 10,000 unit IV TTS [facility] Last Admin: 03/10/17 10:05 Dose: 10,000 unit Ergocalciferol (Drisdol 50,000 Intl Units Cap) 1 cap PO QWK [facility] Last Admin: 03/05/17 14:54 Dose: 1 cap Furosemide (Lasix) 40 mg PO DAILY [facility] Last Admin: 03/09/17 09:44 Dose: Not Given Glucagon (Glucagen Diagnostic Kit) 0 mg IM STAT PRN; Protocol PRN Reason: Hypoglycemia Protocol Heparin Sodium (Porcine) (Heparin) 5,000 units SC Q8 [facility] Last Admin: 03/10/17 13:26 Dose: 5,000 units Heparin Sodium (Porcine) (Heparin) 3,700 units IVP TTS [facility] Stop: 03/24/17 23:59 Last Admin: 03/10/17 10:06 Dose: 3,700 units Hydralazine HCl (Apresoline) 25 mg PO BID [facility] Last Admin: 03/10/17 18:19 Dose: Not Given Hydromorphone HCl (Dilaudid) 0.5 mg IVP Q4H PRN PRN Reason: Pain, severe (8-10) Last Admin: 03/10/17 14:48 Dose: 0.5 mg Tigecycline 50 mg/ Sodium (Chloride) 100 mls @ 100 mls/hr IVPB Q12H [facility] Last Admin: 03/10/17 08:19 Dose: 100 mls/hr Fluconazole (Diflucan Iv 200 Mg/100 Ml Ns) 100 mls @ 100 mls/hr IVPB DAILY [facility] Last Admin: 03/10/17 12:03 Dose: Not Given Sodium Chloride 35 meq/Potassium Chloride 30 meq/Magnesium Sulfate 6 meq/ Calcium Gluconate 4.5 meq/Heparin Sodium (Porcine) 1,000 units/ Multivitamins/ Vitamin C 10 ml/ Amino Acids 1,045.9052 mls @ 63 mls/hr IV .[id number] [facility] Stop: 03/11/17 10:36 Last Admin: 03/10/17 18:03 Dose: 63 mls/hr Sodium Chloride 35 meq/Potassium Chloride 30 meq/Magnesium Sulfate 6 meq/ Calcium Gluconate 4.5 meq/Heparin Sodium (Porcine) 1,000 units/ Amino Acids 1, 035.9052 mls @ 63 mls/hr IV .[id number] [facility] Fat Emulsion Intravenous (Intralipid 20%) 500 mls @ 42 mls/hr IV ONCE ONE Stop: 03/11/17 05:54 Last Admin: 03/10/17 18:00 Dose: 42 mls/hr Insulin Glargine (Lantus) 25 unit SC HS [facility] Last Admin: 03/09/17 22:22 Dose: 25 unit Insulin Human Regular (Novolin R) 0 unit SC ACHS [facility] PRN Reason: Protocol Last Admin: 03/10/17 17:31 Dose: 4 unit Latanoprost (Xalatan Opht) 0.02 ml OU HS [facility] Last Admin: 03/09/17 22:23 Dose: 0.02 ml Losartan Potassium (Cozaar) 100 mg PO DAILY [facility] Last Admin: 03/10/17 12:03 Dose: Not Given Pantoprazole Sodium (Protonix Inj) 40 mg IVP Q12H [facility] Last Admin: 03/10/17 16:05 Dose: 40 mg Rosuvastatin Calcium (Crestor) 10 mg PO HS [facility] Last Admin: 03/09/17 22:23 Dose: Not Given Timolol Maleate (Timoptic 0.5% Ophth Soln) 1 drop OU BID [facility] Last Admin: 03/10/17 18:00 Dose: 1 drop Vitamin B Complex/Vit C/Folic Acid (Nephro-Alonzo) 1 tab PO 0800 [facility] Last Admin: 03/10/17 08:18 Dose: 1 tab - Labs Labs: 03/10/17 10:08 03/10/17 08:14 PT 12.3 SECONDS (9.7-12.2) H 02/18/17 05:30 INR 1.1 02/18/17 05:30 APTT 30 SECONDS (21-34) 02/18/17 05:30 Assessment and Plan - Assessment and Plan (Free Text) Assessment: ESRD ON HD T T S ANEMIA OF CKD .. ON EPO .. WILL START IRON D/C COLCHICINE ORDERS WRITTEEN
[2017-03-10] MEDS: (Lantus) Insulin Glargine, Recombinant SC SCH (22:21)
[2017-03-10] MEDS: Latanoprost 2.5 ml Opht Soln OU SCH (22:25)
--- NOTE | 2017-03-11 06:32 | CP.PCM.PN ---
<Piyush Segura - Last Filed: 03/11/17 21:12> Subjective - Date & Time of Evaluation Date of Evaluation: 03/11/17 Time of Evaluation: 09:30 - Subjective Subjective: PGY-[address] Myrick Patient seen and examined. Patient is sleepy and unable to communicate with full words. ROS unable to ascertain. Patient able to recognize family and caregivers. Patient still refuses food but was asking for some water this morning. Objective - Vital Signs/Intake and Output Vital Signs (last 24 hours): Temp Pulse Resp BP Pulse Ox 99.4 F 73 20 159/60 H 96 03/10/17 23:28 03/10/17 23:28 03/10/17 23:28 03/10/17 23:28 03/10/17 23:28 Intake and Output: 03/10/17 03/11/17 18:59 06:59 Intake Total 100 Balance 100 - Medications Medications: Current Medications Acetaminophen (Tylenol 325mg Tab) 650 mg PO Q6 PRN PRN Reason: Pain, Mild (1-3) Last Admin: 03/07/17 18:20 Dose: 650 mg Amlodipine Besylate (Norvasc) 5 mg PO DAILY [facility] Last Admin: 03/10/17 12:03 Dose: Not Given Ascorbic Acid (Vitamin C 500 Mg Tab) 500 mg PO DAILY [facility] Last Admin: 03/10/17 12:04 Dose: Not Given Brimonidine Tartrate (Alphagan 0.2% Opht) 1 ml OU TID [facility] Last Admin: 03/10/17 18:00 Dose: 1 drop Collagenase (Santyl) 0 gm TOP DAILY [facility] Last Admin: 03/10/17 12:04 Dose: Not Given Dextrose (Dextrose 50% Inj) 0 ml IV STAT PRN; Protocol PRN Reason: Hyglycemia Protocol Dextrose (Glutose 15) 0 gm PO ONCE PRN; Protocol PRN Reason: Hypoglycemia Protocol Epoetin Maxwell (Procrit) 10,000 unit IV TTS [facility] Last Admin: 03/10/17 10:05 Dose: 10,000 unit Ergocalciferol (Drisdol 50,000 Intl Units Cap) 1 cap PO QWK [facility] Last Admin: 03/05/17 14:54 Dose: 1 cap Glucagon (Glucagen Diagnostic Kit) 0 mg IM STAT PRN; Protocol PRN Reason: Hypoglycemia Protocol Heparin Sodium (Porcine) (Heparin) 5,000 units SC Q8 [facility] Last Admin: 03/11/17 05:49 Dose: 5,000 units Heparin Sodium (Porcine) (Heparin) 3,700 units IVP TTS [facility] Stop: 03/24/17 23:59 Last Admin: 03/10/17 10:06 Dose: 3,700 units Hydralazine HCl (Apresoline) 25 mg PO BID [facility] Last Admin: 03/10/17 18:19 Dose: Not Given Hydromorphone HCl (Dilaudid) 0.5 mg IVP Q4H PRN PRN Reason: Pain, severe (8-10) Last Admin: 03/10/17 18:47 Dose: 0.5 mg Tigecycline 50 mg/ Sodium (Chloride) 100 mls @ 100 mls/hr IVPB Q12H [facility] Last Admin: 03/10/17 19:41 Dose: 100 mls/hr Fluconazole (Diflucan Iv 200 Mg/100 Ml Ns) 100 mls @ 100 mls/hr IVPB DAILY [facility] Last Admin: 03/10/17 12:03 Dose: Not Given Sodium Chloride 35 meq/Potassium Chloride 30 meq/Magnesium Sulfate 6 meq/ Calcium Gluconate 4.5 meq/Heparin Sodium (Porcine) 1,000 units/ Multivitamins/ Vitamin C 10 ml/ Amino Acids 1,045.9052 mls @ 63 mls/hr IV .[id number] [facility] Stop: 03/11/17 10:36 Last Admin: 03/10/17 18:03 Dose: 63 mls/hr Sodium Chloride 35 meq/Potassium Chloride 30 meq/Magnesium Sulfate 6 meq/ Calcium Gluconate 4.5 meq/Heparin Sodium (Porcine) 1,000 units/ Amino Acids 1, 035.9052 mls @ 63 mls/hr IV .[id number] [facility] Insulin Glargine (Lantus) 25 unit SC HS [facility] Last Admin: 03/10/17 22:21 Dose: 25 unit Insulin Human Regular (Novolin R) 0 unit SC ACHS [facility] PRN Reason: Protocol Last Admin: 03/10/17 22:22 Dose: Not Given Latanoprost (Xalatan Opht) 0.02 ml OU HS [facility] Last Admin: 03/10/17 22:25 Dose: 0.02 ml Losartan Potassium (Cozaar) 100 mg PO DAILY [facility] Last Admin: 03/10/17 12:03 Dose: Not Given Pantoprazole Sodium (Protonix Inj) 40 mg IVP Q12H [facility] Last Admin: 03/11/17 04:46 Dose: 40 mg Rosuvastatin Calcium (Crestor) 10 mg PO HS [facility] Last Admin: 03/09/17 22:23 Dose: Not Given Timolol Maleate (Timoptic 0.5% Ophth Soln) 1 drop OU BID [facility] Last Admin: 03/10/17 18:00 Dose: 1 drop Vitamin B Complex/Vit C/Folic Acid (Nephro-Alonzo) 1 tab PO 0800 [facility] Last Admin: 03/10/17 08:18 Dose: 1 tab - Labs Labs: 03/10/17 10:08 03/10/17 08:14 PT 12.3 SECONDS (9.7-12.2) H 02/18/17 05:30 INR 1.1 02/18/17 05:30 APTT 30 SECONDS (21-34) 02/18/17 05:30 - Constitutional Appears: No Acute Distress - Head Exam Head Exam: ATRAUMATIC, NORMOCEPHALIC - Eye Exam Eye Exam: EOMI, PERRL - ENT Exam ENT Exam: Mucous Membranes Moist - Respiratory Exam Respiratory Exam: Clear to Ausculation Bilateral. absent: Rales, Rhonchi, Wheezes - Cardiovascular Exam Cardiovascular Exam: REGULAR RHYTHM, +S1, +S2 - GI/Abdominal Exam GI & Abdominal Exam: Soft, Normal Bowel Sounds. absent: Tenderness - Extremities Exam Extremities Exam: absent: Calf Tenderness, Pedal Edema Additional comments: Chronic venous stasis changes bilaterally in the legs Left foot ulcer with 10x5 cm eschar spanning lateral plantar surface s/p debridement with wound vac in place for left foot wound. - Neurological Exam Neurological Exam: Alert, Awake - Skin Skin Exam: Dry, Warm Assessment and Plan - Assessment and Plan (Free Text) Plan: 1. Non-Healing Left Heel Ulcer 03/02: Wound vac was replaced this afternoon. Gram positive cocci grew in the blood cultures. 03/01: POD #2 s/p debridement of L foot ulcer. Patient's WBC increased to 21.7 with left shift. Lactate 2.8--> repeat 1.9; recheck blood cultures today. Plan to change wound vac on foot tomorrow. 02/26/17: Patient underwent aortofemoral angiogram via right groin with selective catheterization of left anterior femoral artery. Balloon angioplasty of popliteal artery. Pathway arthrectomy and balloon angioplasty of anterior tibial artery. 02/27/17: Debridement of left foot ulcer with wound vac placed and cultures taken. Podiatry consult - Dr. Avery, help appreciated Infectious Disease Dr. Wellington consulted, help appreciated. Dr. Broussard on board, help appreciated. Low ext arterial duplex (02/04/17): R- occlusion R post tib artery, 50-75% stenosis right mid popliteal & proximal anterior tib arteries L- occlusion of left post tib artery, >75% stenosis left proximal ant tibial artery, 50-75% stenosis left distal SFA & proximal popliteal a. Vancomycin 1000 mg IV MWF [facility] D/C'ed on 02/22/17 Cefepime 1 gm IV Q24H 02/18/17 to 02/23/17 Zyvox 600 mg PO BID started 02/22/17-02/23/17 Current antibiotics: Tygacil 100 mg loading dose on 02/25/17 and then continued as Tygacil 50 mg IV Q12H Abdominal Angiography 02/19/17: Severe bilateral lower extremity arterial runoff with 1 vessel likely remaining patent at the right. None is continuously patent at the left lower extremity [id number]. Widely patent abdominal aorta and iliac arterial system with moderate right and [id number] left femoral arterial disease. Severe bilateral popliteal artery arterial disease. Dr. Avery recommended Left BKA given his physical exam findings. Dr. Broussard also recommends the left BKA. He stated that even if the gangrenous portion is removed, it will not heal regardless of revascularization. As of 02/25, the patient's family has decided for her to stay and have Dr. Broussard clean the wound and improve the circulation in the leg. Before this, they were adamant about getting the patient to [facility] for hyperbaric therapy to try to salvage the leg. They still do not wish for amputation at this time. Colchicine 0.6 mg PO BID added on 03/08/17 for anti-inflammatory properties. Patient is already on hemodialysis. Dilaudid 0.5 mg IV Q4 prn pain 2. Left Pleural Effusion 03/02: 500 cc clear fluid drained from the left pleura 03/01: Chest X-ray ordered showed left sided pleural effusion new since admission (see full report) f/u CT chest without contrast Ordered thoracentesis with fluid studies Consulted Lock Operator Dr John- will f/u recommendations 3. C. Diff C. Diff studies positive Patient on isolation contact precaution Vancomycin 125 mg PO QID started--discontinued Dr. Wellington added Flagyl 500 mg IV [id number] repeat C diff and stool culture on 02/28--negative 4. Altered Mental Status 03/01: Patient obtunded this AM due to Gabapentin that was given night prior ( renally excreted). Gabapentin was discontinued. Repeat CT head without contrast was ordered this morning which was negative for acute infarct. Avoid pain medications that are renally excreted at this time. CT Head negative for Acute Territorial Infarction Patient found hypoglycemic by both and EMS with symptoms that suggest seizure episode. Patient is a poorly controlled diabetic. Monitor Accuchecks qACHS and Q4H Patient likely had an episode of neuroglycopenia and currently in post-ictal state. Due to post-ictal state, decision made to avoid narcotic pain medications. GENERAL WAREHOUSE WORKER performed successful bedside swallow eval and recommended Pureed diet with thin liquids. Home PO meds restarted. Neurology consult Dr. Tanisha Aguirre, help appreciated. Thiamine 100 mg Q8H Could not get brain MRI which was neuro's recommendation due to 3 previous attempts where patient was moving too much. We do not wish to further sedate the patient due to her current mental state, so instead a repeat CT Head without contrast was done on 02/23/17. This CT head did not demonstrate any acute hemorrhagic or ischemic pathology. 5. End Stage Renal Disease on Hemodialysis On HD T,,S Dr. Ambrose nephrology consulted- help appreciated 6. Decreased oral intake Will discuss possibility of PEG tube with patient's family 03/01: Patient unable to eat due to altered mental status. Status changed to NPO at this time. Starting TPN for nutrition to be given via PICC line. 03/05/17: TPN changed to increase proteins per dietary's recommendations. -Diflucan was added empirically. 03/11: Per GI recommendations and 's consent, NGT placed and patient started on Tube Feeds. Dietary consulted for recommendations. 7. Hypertension 03/02: Patient resumed oral BP medications today and tolerated without issue. 03/01: Patient normotensive, held oral BP medications due to NPO status. Given Lasix 20mg IV x1 dose. Will monitor BP q4h and given medications as needed. PO Home medications: * Norvasc 5 mg PO daily * Losartan 100 mg PO daily * Furosemide 40 mg PO daily--held * Held Bumex for now Monitor BP q6h and adjust meds as needed 8. Anemia of Chronic Disease Hgb stable Likely secondary to ESRD Dr. Ambrose put for IV ferlicet 125 mg and Procrit 10,000 units IV Monitor CBC daily 9. Diabetes 03/01: Patient having multiple episodes of hypoglycemia causing mental status change. Stopping standing insulin. See CORE MICROARCHITECT note for more information. Accuchecks qACHS [facility] Home Lantus 30 units SC HS- reduced to 15 units HS Lantus increased to 25 units on 03/06/[address] Myrick her sliding scale coverage for the last few days Crestor 10mg PO HS 10. Prophylactic Measures SCDs Heparin 5000 units SC Q8H 1:1 observation due to agitation. Patient tries to get out of bed. Fall precautions Palliative care consulted. Dietary consulted for recommendations for TPN Disposition: This patient has a very poor prognosis. The family wishes to try to save the leg despite multiple professional opinions on the necessity of an amputation. The family initially wished for the patient to go to [facility] where hyperbaric therapy is available in order to promote healing. They wished to be cared for by their personal concaving machine operator Dr. Ware; however, Dr. Ware has become unavailable. So the family decided to remain at [facility] and attempt healing via vascular surgery to improve circulation and wound debridement of damaged tissue. They were repeatedly warned by multiple medical sonographer of the risks associated with refusing a BKA and attempting to salvage the foot. The family verbalized understanding of the risks but still decide against a BKA at this time. Case DW Dr. Ramez Segura PGY-1 <Benson Myrick Jr. - Last Filed: 03/14/17 11:07> Objective - Vital Signs/Intake and Output Vital Signs (last 24 hours): Temp Pulse Resp BP Pulse Ox 99 F 89 20 155/64 H 97 03/14/17 08:01 03/14/17 08:01 03/14/17 08:01 03/14/17 08:01 03/14/17 08:01 - Medications Medications: Current Medications Acetaminophen (Tylenol 325mg Tab) 650 mg PO Q6 PRN PRN Reason: Pain, Mild (1-3) Last Admin: 03/11/17 17:49 Dose: 650 mg Amlodipine Besylate (Norvasc) 5 mg PO DAILY [facility] Last Admin: 03/13/17 09:14 Dose: 5 mg Brimonidine Tartrate (Alphagan 0.2% Opht) 1 ml OU TID [facility] Last Admin: 03/13/17 17:53 Dose: 1 drop Collagenase (Santyl) 0 gm TOP DAILY [facility] Last Admin: 03/13/17 10:00 Dose: Not Given Dextrose (Dextrose 50% Inj) 0 ml IV STAT PRN; Protocol PRN Reason: Hyglycemia Protocol Dextrose (Glutose 15) 0 gm PO ONCE PRN; Protocol PRN Reason: Hypoglycemia Protocol Epoetin Maxwell (Procrit) 10,000 unit IV TTS [facility] Last Admin: 03/12/17 10:19 Dose: 10,000 unit Glucagon (Glucagen Diagnostic Kit) 0 mg IM STAT PRN; Protocol PRN Reason: Hypoglycemia Protocol Heparin Sodium (Porcine) (Heparin) 5,000 units SC Q8 [facility] Last Admin: 03/14/17 05:07 Dose: 5,000 units Heparin Sodium (Porcine) (Heparin) 3,700 units IVP TTS [facility] Stop: 03/24/17 23:59 Last Admin: 03/12/17 10:22 Dose: 3,700 units Hydralazine HCl (Apresoline) 25 mg PO BID [facility] Last Admin: 03/13/17 17:52 Dose: 25 mg Hydromorphone HCl (Dilaudid) 0.5 mg IVP Q4H PRN PRN Reason: Pain, severe (8-10) Last Admin: 03/14/17 06:06 Dose: 0.5 mg Tigecycline 50 mg/ Sodium (Chloride) 100 mls @ 100 mls/hr IVPB Q12H [facility] Last Admin: 03/13/17 20:47 Dose: 100 mls/hr Fluconazole (Diflucan Iv 200 Mg/100 Ml Ns) 100 mls @ 100 mls/hr IVPB DAILY [facility] Last Admin: 03/13/17 10:36 Dose: 100 mls/hr Insulin Glargine (Lantus) 25 unit SC HS [facility] Last Admin: 03/12/17 22:13 Dose: 25 unit Insulin Human Regular (Novolin R) 0 unit SC ACHS [facility] PRN Reason: Protocol Last Admin: 03/13/17 22:08 Dose: Not Given Latanoprost (Xalatan Opht) 0.02 ml OU HS [facility] Last Admin: 03/13/17 22:03 Dose: 0.02 ml Losartan Potassium (Cozaar) 100 mg PO DAILY [facility] Last Admin: 03/13/17 09:14 Dose: 100 mg Pantoprazole Sodium (Protonix Inj) 40 mg IVP Q12H [facility] Last Admin: 03/14/17 03:55 Dose: 40 mg Rosuvastatin Calcium (Crestor) 10 mg PO HS [facility] Last Admin: 03/13/17 22:05 Dose: 10 mg Timolol Maleate (Timoptic 0.5% Oph Soln) 1 drop OU BID [facility] Last Admin: 03/13/17 17:53 Dose: 1 drop - Labs Labs: 03/14/17 09:32 03/14/17 09:32 PT 12.3 SECONDS (9.7-12.2) H 02/18/17 05:30 INR 1.1 02/18/17 05:30 APTT 30 SECONDS (21-34) 02/18/17 05:30 Attending/Attestation - Attestation I have personally seen and examined this patient.: Yes I have fully participated in the care of the patient.: Yes I have reviewed all pertinent clinical information, including history, physical exam and plan: Yes Notes (Text): 03/14/17 11:07 Agree with resident note and plan of care
[2017-03-11] MEDS: (Novolin R) Insulin Human Regular 100 units/ml vial SC SCH ×4 (08:19→21:59)
--- NOTE | 2017-03-11 10:09 | CP.PCM.PN ---
Subjective - Date & Time of Evaluation Date of Evaluation: 03/11/17 Time of Evaluation: 10:07 - Subjective Subjective: Surgery Progress Note for Dr. Broussard HPI: Patient seen and examined at bedside. Patient does not reply appropriately to questions. ROS unattainable Objective - Vital Signs/Intake and Output Vital Signs (last 24 hours): Temp Pulse Resp BP Pulse Ox 98.9 F 79 20 119/46 L 96 03/11/17 08:32 03/11/17 08:32 03/11/17 08:32 03/11/17 08:32 03/11/17 08:32 Intake and Output: 03/11/17 03/11/17 06:59 18:59 Intake Total 100 604 Balance 100 604 - Medications Medications: Current Medications Acetaminophen (Tylenol 325mg Tab) 650 mg PO Q6 PRN PRN Reason: Pain, Mild (1-3) Last Admin: 03/07/17 18:20 Dose: 650 mg Amlodipine Besylate (Norvasc) 5 mg PO DAILY [facility] Last Admin: 03/10/17 12:03 Dose: Not Given Ascorbic Acid (Vitamin C 500 Mg Tab) 500 mg PO DAILY [facility] Last Admin: 03/10/17 12:04 Dose: Not Given Brimonidine Tartrate (Alphagan 0.2% Opht) 1 ml OU TID [facility] Last Admin: 03/10/17 18:00 Dose: 1 drop Collagenase (Santyl) 0 gm TOP DAILY [facility] Last Admin: 03/10/17 12:04 Dose: Not Given Dextrose (Dextrose 50% Inj) 0 ml IV STAT PRN; Protocol PRN Reason: Hyglycemia Protocol Dextrose (Glutose 15) 0 gm PO ONCE PRN; Protocol PRN Reason: Hypoglycemia Protocol Epoetin Maxwell (Procrit) 10,000 unit IV TTS [facility] Last Admin: 03/10/17 10:05 Dose: 10,000 unit Ergocalciferol (Drisdol 50,000 Intl Units Cap) 1 cap PO QWK [facility] Last Admin: 03/05/17 14:54 Dose: 1 cap Glucagon (Glucagen Diagnostic Kit) 0 mg IM STAT PRN; Protocol PRN Reason: Hypoglycemia Protocol Heparin Sodium (Porcine) (Heparin) 5,000 units SC Q8 [facility] Last Admin: 03/11/17 05:49 Dose: 5,000 units Heparin Sodium (Porcine) (Heparin) 3,700 units IVP TTS [facility] Stop: 03/24/17 23:59 Last Admin: 03/10/17 10:06 Dose: 3,700 units Hydralazine HCl (Apresoline) 25 mg PO BID [facility] Last Admin: 03/10/17 18:19 Dose: Not Given Hydromorphone HCl (Dilaudid) 0.5 mg IVP Q4H PRN PRN Reason: Pain, severe (8-10) Last Admin: 03/10/17 18:47 Dose: 0.5 mg Tigecycline 50 mg/ Sodium (Chloride) 100 mls @ 100 mls/hr IVPB Q12H [facility] Last Admin: 03/10/17 19:41 Dose: 100 mls/hr Fluconazole (Diflucan Iv 200 Mg/100 Ml Ns) 100 mls @ 100 mls/hr IVPB DAILY [facility] Last Admin: 03/10/17 12:03 Dose: Not Given Sodium Chloride 35 meq/Potassium Chloride 30 meq/Magnesium Sulfate 6 meq/ Calcium Gluconate 4.5 meq/Heparin Sodium (Porcine) 1,000 units/ Multivitamins/ Vitamin C 10 ml/ Amino Acids 1,045.9052 mls @ 63 mls/hr IV .[id number] [facility] Stop: 03/11/17 10:36 Last Admin: 03/10/17 18:03 Dose: 63 mls/hr Sodium Chloride 35 meq/Potassium Chloride 30 meq/Magnesium Sulfate 6 meq/ Calcium Gluconate 4.5 meq/Heparin Sodium (Porcine) 1,000 units/ Amino Acids 1, 035.9052 mls @ 63 mls/hr IV .[id number] [facility] Insulin Glargine (Lantus) 25 unit SC HS [facility] Last Admin: 03/10/17 22:21 Dose: 25 unit Insulin Human Regular (Novolin R) 0 unit SC ACHS [facility] PRN Reason: Protocol Last Admin: 03/11/17 08:19 Dose: 12 unit Latanoprost (Xalatan Opht) 0.02 ml OU HS [facility] Last Admin: 03/10/17 22:25 Dose: 0.02 ml Losartan Potassium (Cozaar) 100 mg PO DAILY [facility] Last Admin: 03/10/17 12:03 Dose: Not Given Pantoprazole Sodium (Protonix Inj) 40 mg IVP Q12H [facility] Last Admin: 03/11/17 04:46 Dose: 40 mg Rosuvastatin Calcium (Crestor) 10 mg PO HS [facility] Last Admin: 03/09/17 22:23 Dose: Not Given Timolol Maleate (Timoptic 0.5% Ophth Soln) 1 drop OU BID [facility] Last Admin: 03/10/17 18:00 Dose: 1 drop Vitamin B Complex/Vit C/Folic Acid (Nephro-Alonzo) 1 tab PO 0800 [facility] Last Admin: 03/10/17 08:18 Dose: 1 tab - Labs Labs: 03/10/17 10:08 03/10/17 08:14 PT 12.3 SECONDS (9.7-12.2) H 02/18/17 05:30 INR 1.1 02/18/17 05:30 APTT 30 SECONDS (21-34) 02/18/17 05:30 - Constitutional Appears: Non-toxic - Head Exam Head Exam: ATRAUMATIC, NORMAL INSPECTION, NORMOCEPHALIC - Eye Exam Eye Exam: EOMI Pupil Exam: NORMAL ACCOMODATION - ENT Exam ENT Exam: Mucous Membranes Moist - Respiratory Exam Respiratory Exam: Clear to Ausculation Bilateral, NORMAL BREATHING PATTERN - Cardiovascular Exam Cardiovascular Exam: REGULAR RHYTHM - GI/Abdominal Exam GI & Abdominal Exam: Soft, Normal Bowel Sounds. absent: Distended, Tenderness - Extremities Exam Extremities Exam: absent: Joint Swelling, Tenderness Additional comments: L. heel ulcer. Wound vac in place. holding suction - Neurological Exam Neurological Exam: absent: Alert, Oriented x3 - Skin Skin Exam: absent: Intact Assessment and Plan - Assessment and Plan (Free Text) Assessment: 71F with L. Heel Ulcer Plan: * Wound vac change today * will wait until Dr. Myrick present so he can evaluate the wound * Further management per medical team * Further reccs per Dr. Bobo Elkins PGY1
[2017-03-11] MEDS: Multivitamin Vitamin B Complex (Nephro-Vite) Tab PO SCH (10:39)
[2017-03-11] MEDS: Brimonidine 0.2% Opth Sol (5ml) OU SCH ×3 (10:40→17:52)
[2017-03-11] MEDS: Fluconazole IV 200mg/100 ml NS 100 ML IVPB SCH (10:44)
--- NOTE | 2017-03-11 10:59 | CP.PCM.PN ---
Subjective - Date & Time of Evaluation Date of Evaluation: 03/11/17 Time of Evaluation: 10:56 - Subjective Subjective: CC: follow up for Poor PO Intake and peptic disease Able to take small sips of juice, but not swallowing food, according to . Discussed NG placement and feeding and he is agreeable. Discussed with Dr Segura. Denies abdominal pain, diarrhea, vomiting. Hyponatremic, brittle diabetes difficult to control, severe PVD. Objective - Vital Signs/Intake and Output Vital Signs (last 24 hours): Temp Pulse Resp BP Pulse Ox 98.9 F 72 20 135/72 96 03/11/17 08:32 03/11/17 10:32 03/11/17 08:32 03/11/17 10:32 03/11/17 08:32 Intake and Output: 03/11/17 03/11/17 06:59 18:59 Intake Total 100 604 Balance 100 604 - Medications Medications: Current Medications Acetaminophen (Tylenol 325mg Tab) 650 mg PO Q6 PRN PRN Reason: Pain, Mild (1-3) Last Admin: 03/07/17 18:20 Dose: 650 mg Amlodipine Besylate (Norvasc) 5 mg PO DAILY [facility] Last Admin: 03/11/17 10:39 Dose: 5 mg Ascorbic Acid (Vitamin C 500 Mg Tab) 500 mg PO DAILY [facility] Last Admin: 03/11/17 10:39 Dose: 500 mg Brimonidine Tartrate (Alphagan 0.2% Opht) 1 ml OU TID [facility] Last Admin: 03/11/17 10:40 Dose: 1 drop Collagenase (Santyl) 0 gm TOP DAILY [facility] Last Admin: 03/10/17 12:04 Dose: Not Given Dextrose (Dextrose 50% Inj) 0 ml IV STAT PRN; Protocol PRN Reason: Hyglycemia Protocol Dextrose (Glutose 15) 0 gm PO ONCE PRN; Protocol PRN Reason: Hypoglycemia Protocol Epoetin Maxwell (Procrit) 10,000 unit IV TTS [facility] Last Admin: 03/10/17 10:05 Dose: 10,000 unit Ergocalciferol (Drisdol 50,000 Intl Units Cap) 1 cap PO QWK [facility] Last Admin: 03/05/17 14:54 Dose: 1 cap Glucagon (Glucagen Diagnostic Kit) 0 mg IM STAT PRN; Protocol PRN Reason: Hypoglycemia Protocol Heparin Sodium (Porcine) (Heparin) 5,000 units SC Q8 [facility] Last Admin: 03/11/17 05:49 Dose: 5,000 units Heparin Sodium (Porcine) (Heparin) 3,700 units IVP TTS [facility] Stop: 03/24/17 23:59 Last Admin: 03/10/17 10:06 Dose: 3,700 units Hydralazine HCl (Apresoline) 25 mg PO BID [facility] Last Admin: 03/11/17 10:39 Dose: 25 mg Hydromorphone HCl (Dilaudid) 0.5 mg IVP Q4H PRN PRN Reason: Pain, severe (8-10) Last Admin: 03/10/17 18:47 Dose: 0.5 mg Tigecycline 50 mg/ Sodium (Chloride) 100 mls @ 100 mls/hr IVPB Q12H [facility] Last Admin: 03/11/17 10:44 Dose: 100 mls/hr Fluconazole (Diflucan Iv 200 Mg/100 Ml Ns) 100 mls @ 100 mls/hr IVPB DAILY [facility] Last Admin: 03/11/17 10:44 Dose: 100 mls/hr Sodium Chloride 35 meq/Potassium Chloride 30 meq/Magnesium Sulfate 6 meq/ Calcium Gluconate 4.5 meq/Heparin Sodium (Porcine) 1,000 units/ Amino Acids 1, 035.9052 mls @ 63 mls/hr IV .[id number] [facility] Insulin Glargine (Lantus) 25 unit SC HS [facility] Last Admin: 03/10/17 22:21 Dose: 25 unit Insulin Human Regular (Novolin R) 0 unit SC ACHS [facility] PRN Reason: Protocol Last Admin: 03/11/17 08:19 Dose: 12 unit Latanoprost (Xalatan Opht) 0.02 ml OU HS [facility] Last Admin: 03/10/17 22:25 Dose: 0.02 ml Losartan Potassium (Cozaar) 100 mg PO DAILY [facility] Last Admin: 03/11/17 10:39 Dose: 100 mg Pantoprazole Sodium (Protonix Inj) 40 mg IVP Q12H [facility] Last Admin: 03/11/17 04:46 Dose: 40 mg Rosuvastatin Calcium (Crestor) 10 mg PO HS [facility] Last Admin: 03/09/17 22:23 Dose: Not Given Timolol Maleate (Timoptic 0.5% Ophth Soln) 1 drop OU BID [facility] Last Admin: 03/11/17 10:42 Dose: 1 drop Vitamin B Complex/Vit C/Folic Acid (Nephro-Alonzo) 1 tab PO 0800 [facility] Last Admin: 03/11/17 10:39 Dose: 1 tab - Labs Labs: 03/10/17 10:08 03/10/17 08:14 PT 12.3 SECONDS (9.7-12.2) H 02/18/17 05:30 INR 1.1 02/18/17 05:30 APTT 30 SECONDS (21-34) 02/18/17 05:30 - Constitutional Appears: Chronically Ill - Head Exam Head Exam: NORMOCEPHALIC - Respiratory Exam Respiratory Exam: NORMAL BREATHING PATTERN - Cardiovascular Exam Cardiovascular Exam: REGULAR RHYTHM - GI/Abdominal Exam GI & Abdominal Exam: Soft. absent: Distended, Tenderness, Mass Assessment and Plan (1) Clostridium difficile colitis Assessment & Plan: Managed by ID Completed course of treatment and negative CDiff toxin documented on Mar 04 Status: Acute (2) Change in mental status Assessment & Plan: Alert today and communicative, but very weak Status: Acute (3) End stage renal disease on dialysis Assessment & Plan: Renal specialist managing Status: Acute (4) Heel ulcer Assessment & Plan: Treated by Vacular surgery Status: Acute (5) IDDM (insulin dependent diabetes mellitus) Assessment & Plan: Managed by Medical team Status: Chronic (6) Dysphagia Assessment & Plan: Able to drink small amounts, but not swallowing foods. S/P recent EGD not showing any overt structural problems in esiophagus. Not improving with IV Protonix (also has peptic Disease) Rec: Place NG and begin feeds via NGT. If feeds are tolerated, can then stop Parenteral Nutrition. Discussed with Dr Segura (medical equipment repair technician) and with patient's who is agreeable. Status: Acute (7) PUD (peptic ulcer disease) Assessment & Plan: Continue IV Protonix bolus until patient can take PO meds reliably Status: Acute
[2017-03-11] MEDS: Collagenase 250 Units/gm Ointment(30 gm) TOP SCH (11:16)
[2017-03-11] MEDS ORDERED: Lidocaine 2% Jelly (Uro-Jet) TOP STA (11:19)
[2017-03-11] MEDS ORDERED: Lidocaine 2% Jelly (5 ml) TOP ONE (11:30)
[2017-03-11] MEDS: HYDROmorphone 0.5 mg/0.5 ml ISec IVP PRN ×2 (12:19→19:46)
--- NOTE | 2017-03-11 14:01 | RAD ---
HISTORY: NGT placed COMPARISON: Chest radiograph 03/01/2017. FINDINGS: Total right central venous dialysis catheter is unchanged in position. A nasogastric tube is in placed in the interval terminating at the left upper quadrant abdomen. LUNGS: There is improved aeration at the mid to superior left lung zone with residual airspace disease remaining at the mid to inferior left lung zone likely combined with pleural effusion. No right pleural effusion. PLEURA: No pneumothorax bilaterally. CARDIOVASCULAR: Cardiomegaly appears stable. Mild pulmonary venous congestion is identified this time. OSSEOUS STRUCTURES: No significant abnormalities. VISUALIZED UPPER ABDOMEN: Normal. OTHER FINDINGS: None. IMPRESSION: Mild pulmonary venous congestion is identified with no right-sided infiltrate or pleural effusion. Improved aeration at the left side with persistent moderate left pleural effusion and likely underlying atelectasis or infiltrate in the left mid inferior lung zones. Interval nasogastric tube placement.
[2017-03-11] MEDS: TPN IV SCH (15:21)
[2017-03-11] MEDS ORDERED: TPN IV SCH (18:00)
[2017-03-11] MEDS: (Lantus) Insulin Glargine, Recombinant SC SCH (22:18)
[2017-03-11] MEDS: Latanoprost 2.5 ml Opht Soln OU SCH (22:19)
--- NOTE | 2017-03-11 22:58 | CP.PCM.PN ---
Subjective - Date & Time of Evaluation Date of Evaluation: 03/11/17 Time of Evaluation: 13:00 - Subjective Subjective: SEEN ON RENAL F/U NO CHANGE IN CLINICAL CONDITION ALL PREVIOUS EMR REVEIWED POOR ORAL INTAKE GETTING HD TTS Objective - Vital Signs/Intake and Output Vital Signs (last 24 hours): Temp Pulse Resp BP Pulse Ox 99.1 F 71 20 115/67 96 03/11/17 19:59 03/11/17 17:10 03/11/17 17:10 03/11/17 17:10 03/11/17 17:10 Intake and Output: 03/11/17 03/12/17 18:59 06:59 Intake Total 1204 Balance 1204 - Medications Medications: Current Medications Acetaminophen (Tylenol 325mg Tab) 650 mg PO Q6 PRN PRN Reason: Pain, Mild (1-3) Last Admin: 03/11/17 17:49 Dose: 650 mg Amlodipine Besylate (Norvasc) 5 mg PO DAILY [facility] Last Admin: 03/11/17 10:39 Dose: 5 mg Ascorbic Acid (Vitamin C 500 Mg Tab) 500 mg PO DAILY [facility] Last Admin: 03/11/17 10:39 Dose: 500 mg Brimonidine Tartrate (Alphagan 0.2% Opht) 1 ml OU TID [facility] Last Admin: 03/11/17 17:52 Dose: 1 drop Collagenase (Santyl) 0 gm TOP DAILY [facility] Last Admin: 03/11/17 11:16 Dose: Not Given Dextrose (Dextrose 50% Inj) 0 ml IV STAT PRN; Protocol PRN Reason: Hyglycemia Protocol Dextrose (Glutose 15) 0 gm PO ONCE PRN; Protocol PRN Reason: Hypoglycemia Protocol Epoetin Maxwell (Procrit) 10,000 unit IV TTS [facility] Last Admin: 03/10/17 10:05 Dose: 10,000 unit Ergocalciferol (Drisdol 50,000 Intl Units Cap) 1 cap PO QWK [facility] Last Admin: 03/05/17 14:54 Dose: 1 cap Glucagon (Glucagen Diagnostic Kit) 0 mg IM STAT PRN; Protocol PRN Reason: Hypoglycemia Protocol Heparin Sodium (Porcine) (Heparin) 5,000 units SC Q8 [facility] Last Admin: 03/11/17 22:19 Dose: 5,000 units Heparin Sodium (Porcine) (Heparin) 3,700 units IVP TTS [facility] Stop: 03/24/17 23:59 Last Admin: 03/10/17 10:06 Dose: 3,700 units Hydralazine HCl (Apresoline) 25 mg PO BID [facility] Last Admin: 03/11/17 17:49 Dose: 25 mg Hydromorphone HCl (Dilaudid) 0.5 mg IVP Q4H PRN PRN Reason: Pain, severe (8-10) Last Admin: 03/11/17 19:46 Dose: 0.5 mg Tigecycline 50 mg/ Sodium (Chloride) 100 mls @ 100 mls/hr IVPB Q12H [facility] Last Admin: 03/11/17 19:47 Dose: 100 mls/hr Fluconazole (Diflucan Iv 200 Mg/100 Ml Ns) 100 mls @ 100 mls/hr IVPB DAILY [facility] Last Admin: 03/11/17 10:44 Dose: 100 mls/hr Sodium Chloride 35 meq/Potassium Chloride 30 meq/Magnesium Sulfate 6 meq/ Calcium Gluconate 4.5 meq/Heparin Sodium (Porcine) 1,000 units/ Amino Acids 1, 035.9052 mls @ 63 mls/hr IV .[id number] [facility] Last Admin: 03/11/17 15:21 Dose: Not Given Sodium Chloride 35 meq/Potassium Chloride 30 meq/Magnesium Sulfate 6 meq/ Calcium Gluconate 4.5 meq/Multivitamins/Vitamin C 10 ml/Heparin Sodium (Porcine ) 1, 000 units/ Amino Acids 1,045.9052 mls @ 63 mls/hr IV .[id number] [facility] Stop: 03/12/17 10:30 Last Admin: 03/11/17 17:51 Dose: 63 mls/hr Sodium Chloride 35 meq/Potassium Chloride 30 meq/Magnesium Sulfate 6 meq/ Calcium Gluconate 4.5 meq/Heparin Sodium (Porcine) 1,000 units/ Amino Acids 1, 035.9052 mls @ 63 mls/hr IV .[id number] [facility] Stop: 03/12/17 17:59 Insulin Glargine (Lantus) 25 unit SC HS [facility] Last Admin: 03/11/17 22:18 Dose: 25 unit Insulin Human Regular (Novolin R) 0 unit SC ACHS [facility] PRN Reason: Protocol Last Admin: 03/11/17 21:59 Dose: Not Given Latanoprost (Xalatan Opht) 0.02 ml OU HS [facility] Last Admin: 03/11/17 22:19 Dose: 0.02 ml Losartan Potassium (Cozaar) 100 mg PO DAILY [facility] Last Admin: 03/11/17 10:39 Dose: 100 mg Pantoprazole Sodium (Protonix Inj) 40 mg IVP Q12H [facility] Last Admin: 03/11/17 16:54 Dose: 40 mg Rosuvastatin Calcium (Crestor) 10 mg PO HS [facility] Last Admin: 03/11/17 22:19 Dose: 10 mg Timolol Maleate (Timoptic 0.5% Oph Soln) 1 drop OU BID [facility] Last Admin: 03/11/17 18:54 Dose: 1 drop Vitamin B Complex/Vit C/Folic Acid (Nephro-Alonzo) 1 tab PO 0800 [facility] Last Admin: 03/11/17 10:39 Dose: 1 tab - Labs Labs: 03/10/17 10:08 03/10/17 08:14 PT 12.3 SECONDS (9.7-12.2) H 02/18/17 05:30 INR 1.1 02/18/17 05:30 APTT 30 SECONDS (21-34) 02/18/17 05:30 Assessment and Plan - Assessment and Plan (Free Text) Assessment: ESRD ON HD TTS ANEMIA OF CKD .. H/H STABLE ELECTROLYTES ABNORMALITIES POOR ORAL INTAKE .. NGT Vs PEG .. I FAVOR PEG HER CLINICAL CONDITION IS NOT GOING TO IMPROVE QUICKLY MULTIPLE CO MORBIDITIES P : C/O CURRENT CARE C/O PRESENT MEDS
--- NOTE | 2017-03-12 06:58 | CP.PCM.PN ---
<Piyush Segura - Last Filed: 03/12/17 17:24> Subjective - Date & Time of Evaluation Date of Evaluation: 03/12/17 Time of Evaluation: 07:10 - Subjective Subjective: PGY-[address] Myrick Patient seen and examined. Patient is sleepy and unable to communicate with full words. ROS unable to ascertain. Patient able to recognize family and caregivers. Patient tolerating tube feeds at this time. Objective - Vital Signs/Intake and Output Vital Signs (last 24 hours): Temp Pulse Resp BP Pulse Ox 97.8 F 67 20 138/50 L 100 03/11/17 23:40 03/11/17 23:40 03/11/17 23:40 03/11/17 23:40 03/11/17 23:40 Intake and Output: 03/11/17 03/12/17 18:59 06:59 Intake Total 1204 680 Balance 1204 680 - Medications Medications: Current Medications Acetaminophen (Tylenol 325mg Tab) 650 mg PO Q6 PRN PRN Reason: Pain, Mild (1-3) Last Admin: 03/11/17 17:49 Dose: 650 mg Amlodipine Besylate (Norvasc) 5 mg PO DAILY [facility] Last Admin: 03/11/17 10:39 Dose: 5 mg Ascorbic Acid (Vitamin C 500 Mg Tab) 500 mg PO DAILY [facility] Last Admin: 03/11/17 10:39 Dose: 500 mg Brimonidine Tartrate (Alphagan 0.2% Opht) 1 ml OU TID [facility] Last Admin: 03/11/17 17:52 Dose: 1 drop Collagenase (Santyl) 0 gm TOP DAILY [facility] Last Admin: 03/11/17 11:16 Dose: Not Given Dextrose (Dextrose 50% Inj) 0 ml IV STAT PRN; Protocol PRN Reason: Hyglycemia Protocol Dextrose (Glutose 15) 0 gm PO ONCE PRN; Protocol PRN Reason: Hypoglycemia Protocol Epoetin Maxwell (Procrit) 10,000 unit IV TTS [facility] Last Admin: 03/10/17 10:05 Dose: 10,000 unit Ergocalciferol (Drisdol 50,000 Intl Units Cap) 1 cap PO QWK [facility] Last Admin: 03/05/17 14:54 Dose: 1 cap Glucagon (Glucagen Diagnostic Kit) 0 mg IM STAT PRN; Protocol PRN Reason: Hypoglycemia Protocol Heparin Sodium (Porcine) (Heparin) 5,000 units SC Q8 [facility] Last Admin: 03/12/17 05:11 Dose: 5,000 units Heparin Sodium (Porcine) (Heparin) 3,700 units IVP TTS [facility] Stop: 03/24/17 23:59 Last Admin: 03/10/17 10:06 Dose: 3,700 units Hydralazine HCl (Apresoline) 25 mg PO BID [facility] Last Admin: 03/11/17 17:49 Dose: 25 mg Hydromorphone HCl (Dilaudid) 0.5 mg IVP Q4H PRN PRN Reason: Pain, severe (8-10) Last Admin: 03/11/17 19:46 Dose: 0.5 mg Tigecycline 50 mg/ Sodium (Chloride) 100 mls @ 100 mls/hr IVPB Q12H [facility] Last Admin: 03/11/17 19:47 Dose: 100 mls/hr Fluconazole (Diflucan Iv 200 Mg/100 Ml Ns) 100 mls @ 100 mls/hr IVPB DAILY [facility] Last Admin: 03/11/17 10:44 Dose: 100 mls/hr Sodium Chloride 35 meq/Potassium Chloride 30 meq/Magnesium Sulfate 6 meq/ Calcium Gluconate 4.5 meq/Heparin Sodium (Porcine) 1,000 units/ Amino Acids 1, 035.9052 mls @ 63 mls/hr IV .[id number] [facility] Last Admin: 03/11/17 15:21 Dose: Not Given Sodium Chloride 35 meq/Potassium Chloride 30 meq/Magnesium Sulfate 6 meq/ Calcium Gluconate 4.5 meq/Multivitamins/Vitamin C 10 ml/Heparin Sodium (Porcine ) 1, 000 units/ Amino Acids 1,045.9052 mls @ 63 mls/hr IV .[id number] [facility] Stop: 03/12/17 10:30 Last Admin: 03/11/17 17:51 Dose: 63 mls/hr Sodium Chloride 35 meq/Potassium Chloride 30 meq/Magnesium Sulfate 6 meq/ Calcium Gluconate 4.5 meq/Heparin Sodium (Porcine) 1,000 units/ Amino Acids 1, 035.9052 mls @ 63 mls/hr IV .[id number] [facility] Stop: 03/12/17 17:59 Insulin Glargine (Lantus) 25 unit SC HS [facility] Last Admin: 03/11/17 22:18 Dose: 25 unit Insulin Human Regular (Novolin R) 0 unit SC ACHS [facility] PRN Reason: Protocol Last Admin: 03/11/17 21:59 Dose: Not Given Latanoprost (Xalatan Opht) 0.02 ml OU HS [facility] Last Admin: 03/11/17 22:19 Dose: 0.02 ml Losartan Potassium (Cozaar) 100 mg PO DAILY [facility] Last Admin: 03/11/17 10:39 Dose: 100 mg Pantoprazole Sodium (Protonix Inj) 40 mg IVP Q12H [facility] Last Admin: 03/12/17 05:11 Dose: 40 mg Rosuvastatin Calcium (Crestor) 10 mg PO HS [facility] Last Admin: 03/11/17 22:19 Dose: 10 mg Timolol Maleate (Timoptic 0.5% Ophth Soln) 1 drop OU BID [facility] Last Admin: 03/11/17 18:54 Dose: 1 drop Vitamin B Complex/Vit C/Folic Acid (Nephro-Alonzo) 1 tab PO 0800 [facility] Last Admin: 03/11/17 10:39 Dose: 1 tab - Labs Labs: 03/10/17 10:08 03/10/17 08:14 PT 12.3 SECONDS (9.7-12.2) H 02/18/17 05:30 INR 1.1 02/18/17 05:30 APTT 30 SECONDS (21-34) 02/18/17 05:30 - Constitutional Appears: No Acute Distress - Head Exam Head Exam: ATRAUMATIC, NORMOCEPHALIC - Eye Exam Eye Exam: EOMI, PERRL - ENT Exam ENT Exam: Mucous Membranes Moist Additional comments: NGT in place - Respiratory Exam Respiratory Exam: Clear to Ausculation Bilateral. absent: Rales, Rhonchi, Wheezes - Cardiovascular Exam Cardiovascular Exam: REGULAR RHYTHM, +S1, +S2 - GI/Abdominal Exam GI & Abdominal Exam: Soft, Normal Bowel Sounds. absent: Tenderness - Extremities Exam Extremities Exam: absent: Calf Tenderness, Pedal Edema Additional comments: Chronic venous stasis changes bilaterally in the legs Left foot ulcer with 10x5 cm eschar spanning lateral plantar surface s/p debridement with wound vac in place for left foot wound. - Neurological Exam Neurological Exam: Alert, Awake - Skin Skin Exam: Dry, Warm Assessment and Plan - Assessment and Plan (Free Text) Plan: 1. Non-Healing Left Heel Ulcer 03/02: Wound vac was replaced this afternoon. Gram positive cocci grew in the blood cultures. 03/01: POD #2 s/p debridement of L foot ulcer. Patient's WBC increased to 21.7 with left shift. Lactate 2.8--> repeat 1.9; recheck blood cultures today. Plan to change wound vac on foot tomorrow. 02/26/17: Patient underwent aortofemoral angiogram via right groin with selective catheterization of left anterior femoral artery. Balloon angioplasty of popliteal artery. Pathway arthrectomy and balloon angioplasty of anterior tibial artery. 02/27/17: Debridement of left foot ulcer with wound vac placed and cultures taken. Podiatry consult - Dr. Avery, help appreciated Infectious Disease Dr. Wellington consulted, help appreciated. Dr. Broussard on board, help appreciated. Low ext arterial duplex (02/04/17): R- occlusion R post tib artery, 50-75% stenosis right mid popliteal & proximal anterior tib arteries L- occlusion of left post tib artery, >75% stenosis left proximal ant tibial artery, 50-75% stenosis left distal SFA & proximal popliteal a. Vancomycin 1000 mg IV MWF [facility] D/C'ed on 02/22/17 Cefepime 1 gm IV Q24H 02/18/17 to 02/23/17 Zyvox 600 mg PO BID started 02/22/17-02/23/17 Current antibiotics: Tygacil 100 mg loading dose on 02/25/17 and then continued as Tygacil 50 mg IV Q12H Abdominal Angiography 02/19/17: Severe bilateral lower extremity arterial runoff with 1 vessel likely remaining patent at the right. None is continuously patent at the left lower extremity [id number]. Widely patent abdominal aorta and iliac arterial system with moderate right and [id number] left femoral arterial disease. Severe bilateral popliteal artery arterial disease. Dr. Avery recommended Left BKA given his physical exam findings. Dr. Broussard also recommends the left BKA. He stated that even if the gangrenous portion is removed, it will not heal regardless of revascularization. As of 02/25, the patient's family has decided for her to stay and have Dr. Broussard clean the wound and improve the circulation in the leg. Before this, they were adamant about getting the patient to [facility] for hyperbaric therapy to try to salvage the leg. They still do not wish for amputation at this time. Colchicine 0.6 mg PO BID added on 03/08/17 for anti-inflammatory properties. Patient is already on hemodialysis. Dilaudid 0.5 mg IV Q4 prn pain 2. Left Pleural Effusion 03/02: 500 cc clear fluid drained from the left pleura 03/01: Chest X-ray ordered showed left sided pleural effusion new since admission (see full report) f/u CT chest without contrast Ordered thoracentesis with fluid studies Consulted Pou[employer] Dr John- will f/u recommendations 3. C. Diff C. Diff studies positive Patient on isolation contact precaution Vancomycin 125 mg PO QID started--discontinued Dr. Wellington added Flagyl 500 mg IV [id number] repeat C diff and stool culture on 02/28--negative 4. Altered Mental Status 03/01: Patient obtunded this AM due to Gabapentin that was given night prior ( renally excreted). Gabapentin was discontinued. Repeat CT head without contrast was ordered this morning which was negative for acute infarct. Avoid pain medications that are renally excreted at this time. CT Head negative for Acute Territorial Infarction Patient found hypoglycemic by both and EMS with symptoms that suggest seizure episode. Patient is a poorly controlled diabetic. Monitor Accuchecks qACHS and Q4H Patient likely had an episode of neuroglycopenia and currently in post-ictal state. Due to post-ictal state, decision made to avoid narcotic pain medications. DINING CAR WAITER/WAITRESS performed successful bedside swallow eval and recommended Pureed diet with thin liquids. Home PO meds restarted. Neurology consult Dr. Tanisha Aguirre, help appreciated. Thiamine 100 mg Q8H Could not get brain MRI which was neuro's recommendation due to 3 previous attempts where patient was moving too much. We do not wish to further sedate the patient due to her current mental state, so instead a repeat CT Head without contrast was done on 02/23/17. This CT head did not demonstrate any acute hemorrhagic or ischemic pathology. 5. End Stage Renal Disease on Hemodialysis On HD T,,S Dr. Ambrose nephrology consulted- help appreciated 6. Decreased oral intake Will discuss possibility of PEG tube with patient's family 03/01: Patient unable to eat due to altered mental status. Status changed to NPO at this time. Starting TPN for nutrition to be given via PICC line. 03/05/17: TPN changed to increase proteins per dietary's recommendations. -Diflucan was added empirically. 03/11: Per GI recommendations and 's consent, NGT placed and patient started on Tube Feeds. Dietary consulted for recommendations. Nutrition recommends Goal rate 50 mL/hr Q24H to meet protein/calorie needs. 7. Hypertension 03/02: Patient resumed oral BP medications today and tolerated without issue. 03/01: Patient normotensive, held oral BP medications due to NPO status. Given Lasix 20mg IV x1 dose. Will monitor BP q4h and given medications as needed. PO Home medications: * Norvasc 5 mg PO daily * Losartan 100 mg PO daily * Furosemide 40 mg PO daily--held * Held Bumex for now Monitor BP q6h and adjust meds as needed 8. Anemia of Chronic Disease Hgb stable Likely secondary to ESRD Dr. Ambrose put for IV ferlicet 125 mg and Procrit 10,000 units IV Monitor CBC daily 9. Diabetes 03/01: Patient having multiple episodes of hypoglycemia causing mental status change. Stopping standing insulin. See HEATING FIXTURE TENDER note for more information. Accuchecks qACHS RISS Home Lantus 30 units SC HS- reduced to 15 units HS Lantus increased to 25 units on 03/06/[address] Myrick her sliding scale coverage for the last few days Crestor 10mg PO HS 10. Prophylactic Measures SCDs Heparin 5000 units SC Q8H 1:1 observation due to agitation. Patient tries to get out of bed. Fall precautions Palliative care consulted. Dietary consulted for recommendations for TPN Disposition: This patient has a very poor prognosis. The family wishes to try to save the leg despite multiple professional opinions on the necessity of an amputation. The family initially wished for the patient to go to [facility] where hyperbaric therapy is available in order to promote healing. They wished to be cared for by their personal making department preparer Dr. Ware; however, Dr. Ware has become unavailable. So the family decided to remain at [facility] and attempt healing via vascular surgery to improve circulation and wound debridement of damaged tissue. They were repeatedly warned by multiple medical office receptionist of the risks associated with refusing a BKA and attempting to salvage the foot. The family verbalized understanding of the risks but still decide against a BKA at this time. Case DW Dr. Ramez Segura PGY-1 <Benson Myrick Jr. - Last Filed: 03/14/17 11:07> Objective - Vital Signs/Intake and Output Vital Signs (last 24 hours): Temp Pulse Resp BP Pulse Ox 99 F 89 20 155/64 H 97 03/14/17 08:01 03/14/17 08:01 03/14/17 08:01 03/14/17 08:01 03/14/17 08:01 - Medications Medications: Current Medications Acetaminophen (Tylenol 325mg Tab) 650 mg PO Q6 PRN PRN Reason: Pain, Mild (1-3) Last Admin: 03/11/17 17:49 Dose: 650 mg Amlodipine Besylate (Norvasc) 5 mg PO DAILY [facility] Last Admin: 03/13/17 09:14 Dose: 5 mg Brimonidine Tartrate (Alphagan 0.2% Opht) 1 ml OU TID [facility] Last Admin: 03/13/17 17:53 Dose: 1 drop Collagenase (Santyl) 0 gm TOP DAILY [facility] Last Admin: 03/13/17 10:00 Dose: Not Given Dextrose (Dextrose 50% Inj) 0 ml IV STAT PRN; Protocol PRN Reason: Hyglycemia Protocol Dextrose (Glutose 15) 0 gm PO ONCE PRN; Protocol PRN Reason: Hypoglycemia Protocol Epoetin Maxwell (Procrit) 10,000 unit IV TTS [facility] Last Admin: 03/12/17 10:19 Dose: 10,000 unit Glucagon (Glucagen Diagnostic Kit) 0 mg IM STAT PRN; Protocol PRN Reason: Hypoglycemia Protocol Heparin Sodium (Porcine) (Heparin) 5,000 units SC Q8 [facility] Last Admin: 03/14/17 05:07 Dose: 5,000 units Heparin Sodium (Porcine) (Heparin) 3,700 units IVP TTS [facility] Stop: 03/24/17 23:59 Last Admin: 03/12/17 10:22 Dose: 3,700 units Hydralazine HCl (Apresoline) 25 mg PO BID [facility] Last Admin: 03/13/17 17:52 Dose: 25 mg Hydromorphone HCl (Dilaudid) 0.5 mg IVP Q4H PRN PRN Reason: Pain, severe (8-10) Last Admin: 03/14/17 06:06 Dose: 0.5 mg Tigecycline 50 mg/ Sodium (Chloride) 100 mls @ 100 mls/hr IVPB Q12H [facility] Last Admin: 03/13/17 20:47 Dose: 100 mls/hr Fluconazole (Diflucan Iv 200 Mg/100 Ml Ns) 100 mls @ 100 mls/hr IVPB DAILY [facility] Last Admin: 03/13/17 10:36 Dose: 100 mls/hr Insulin Glargine (Lantus) 25 unit SC HS [facility] Last Admin: 03/12/17 22:13 Dose: 25 unit Insulin Human Regular (Novolin R) 0 unit SC ACHS [facility] PRN Reason: Protocol Last Admin: 03/13/17 22:08 Dose: Not Given Latanoprost (Xalatan Opht) 0.02 ml OU HS [facility] Last Admin: 03/13/17 22:03 Dose: 0.02 ml Losartan Potassium (Cozaar) 100 mg PO DAILY [facility] Last Admin: 03/13/17 09:14 Dose: 100 mg Pantoprazole Sodium (Protonix Inj) 40 mg IVP Q12H [facility] Last Admin: 03/14/17 03:55 Dose: 40 mg Rosuvastatin Calcium (Crestor) 10 mg PO HS [facility] Last Admin: 03/13/17 22:05 Dose: 10 mg Timolol Maleate (Timoptic 0.5% Oph Soln) 1 drop OU BID [facility] Last Admin: 03/13/17 17:53 Dose: 1 drop - Labs Labs: 03/14/17 09:32 03/14/17 09:32 PT 12.3 SECONDS (9.7-12.2) H 02/18/17 05:30 INR 1.1 02/18/17 05:30 APTT 30 SECONDS (21-34) 02/18/17 05:30 Attending/Attestation - Attestation I have personally seen and examined this patient.: Yes I have fully participated in the care of the patient.: Yes I have reviewed all pertinent clinical information, including history, physical exam and plan: Yes Notes (Text): 03/14/17 11:07 Agree with resident note and plan of care
[2017-03-12] MEDS: (Novolin R) Insulin Human Regular 100 units/ml vial SC SCH ×4 (07:35→22:19)
[2017-03-12] MEDS: Multivitamin Vitamin B Complex (Nephro-Vite) Tab PO SCH (08:00)
[2017-03-12] MEDS: Brimonidine 0.2% Opth Sol (5ml) OU SCH ×3 (09:30→18:00)
[2017-03-12] MEDS: Collagenase 250 Units/gm Ointment(30 gm) TOP SCH (10:00)
[2017-03-12] MEDS: Ergocalciferol 50,000 Intl Units Cap PO SCH (10:00)
[2017-03-12 10:08] LABS: BASO # 0.1 K/uL (0.0-0.2); BASO % 0.6 % (0.0-2.0); EOS # 0.2 K/uL (0.0-0.7); EOS % 0.9 % (0.0-4.0); HEMATOCRIT 28.9 % (34.0-47.0); LYMPH # 1.5 K/uL (1.0-4.3); LYMPH % 7.2 % (20.0-40.0); MEAN CELL VOLUME 93.2 fL (81.0-99.0); MEAN CORPUSCULAR HEMOGLOBIN 29.1 pg (27.0-31.0); MEAN CORPUSCULAR HGB CONC 31.3 g/dL (33.0-37.0); MEAN PLATELET VOLUME 9.5 fL (7.2-11.7); MONO # 1.5 K/uL (0.0-0.8); PLATELET COUNT 352 K/uL (130-400); RED CELL DISTRIBUTION WIDTH 22.9 % (11.5-14.5); WHITE BLOOD COUNT 21.2 K/uL (4.8-10.8)
[2017-03-12] MEDS: Epoetin Alfa 10,000 unit/ml Dialysis IV SCH (10:19)
[2017-03-12] MEDS ORDERED: TPN IV SCH (10:31)
[2017-03-12 10:32] LABS: ALB/GLOB RATIO 0.6 (1.0-2.1); BILIRUBIN,TOTAL 0.4 mg/dL (0.2-1.3); TOTAL PROTEIN 4.8 g/dL (6.3-8.3)
[2017-03-12 10:33] LABS: CALCIUM 7.6 mg/dl (8.6-10.4); MAGNESIUM 2.1 mg/dL (1.6-2.3)
[2017-03-12 10:37] LABS: NEUTROPHIL 82 % (50-75); REACTIVE LYMPHOCYTES 2 % (0-0); TOTAL CELLS COUNTED 100
--- NOTE | 2017-03-12 12:25 | CP.PCM.PN ---
Subjective - Date & Time of Evaluation Date of Evaluation: 03/12/17 Time of Evaluation: 12:20 - Subjective Subjective: F/U ulcer, nutrition. Pt seen in HD More alert No report of RB, melena, fever, chills, SZ, Hematuria, hemoptysis Objective - Vital Signs/Intake and Output Vital Signs (last 24 hours): Temp Pulse Resp BP Pulse Ox 98.3 F 78 20 121/51 L 98 03/12/17 09:10 03/12/17 09:10 03/12/17 09:10 03/12/17 11:10 03/12/17 09:10 Intake and Output: 03/12/17 03/12/17 06:59 18:59 Intake Total 680 Balance 680 - Medications Medications: Current Medications Acetaminophen (Tylenol 325mg Tab) 650 mg PO Q6 PRN PRN Reason: Pain, Mild (1-3) Last Admin: 03/11/17 17:49 Dose: 650 mg Amlodipine Besylate (Norvasc) 5 mg PO DAILY [facility] Last Admin: 03/11/17 10:39 Dose: 5 mg Ascorbic Acid (Vitamin C 500 Mg Tab) 500 mg PO DAILY [facility] Last Admin: 03/11/17 10:39 Dose: 500 mg Brimonidine Tartrate (Alphagan 0.2% Opht) 1 ml OU TID [facility] Last Admin: 03/11/17 17:52 Dose: 1 drop Collagenase (Santyl) 0 gm TOP DAILY [facility] Last Admin: 03/11/17 11:16 Dose: Not Given Dextrose (Dextrose 50% Inj) 0 ml IV STAT PRN; Protocol PRN Reason: Hyglycemia Protocol Dextrose (Glutose 15) 0 gm PO ONCE PRN; Protocol PRN Reason: Hypoglycemia Protocol Epoetin Maxwell (Procrit) 10,000 unit IV TTS [facility] Last Admin: 03/12/17 10:19 Dose: 10,000 unit Ergocalciferol (Drisdol 50,000 Intl Units Cap) 1 cap PO QWK [facility] Last Admin: 03/05/17 14:54 Dose: 1 cap Glucagon (Glucagen Diagnostic Kit) 0 mg IM STAT PRN; Protocol PRN Reason: Hypoglycemia Protocol Heparin Sodium (Porcine) (Heparin) 5,000 units SC Q8 [facility] Last Admin: 03/12/17 05:11 Dose: 5,000 units Heparin Sodium (Porcine) (Heparin) 3,700 units IVP TTS [facility] Stop: 03/24/17 23:59 Last Admin: 03/12/17 10:22 Dose: 3,700 units Hydralazine HCl (Apresoline) 25 mg PO BID [facility] Last Admin: 03/11/17 17:49 Dose: 25 mg Hydromorphone HCl (Dilaudid) 0.5 mg IVP Q4H PRN PRN Reason: Pain, severe (8-10) Last Admin: 03/11/17 19:46 Dose: 0.5 mg Tigecycline 50 mg/ Sodium (Chloride) 100 mls @ 100 mls/hr IVPB Q12H [facility] Last Admin: 03/12/17 08:14 Dose: 100 mls/hr Fluconazole (Diflucan Iv 200 Mg/100 Ml Ns) 100 mls @ 100 mls/hr IVPB DAILY [facility] Last Admin: 03/11/17 10:44 Dose: 100 mls/hr Sodium Chloride 35 meq/Potassium Chloride 30 meq/Magnesium Sulfate 6 meq/ Calcium Gluconate 4.5 meq/Heparin Sodium (Porcine) 1,000 units/ Amino Acids 1, 035.9052 mls @ 63 mls/hr IV .[id number] [facility] Last Admin: 03/11/17 15:21 Dose: Not Given Sodium Chloride 35 meq/Potassium Chloride 30 meq/Magnesium Sulfate 6 meq/ Calcium Gluconate 4.5 meq/Heparin Sodium (Porcine) 1,000 units/ Amino Acids 1, 035.9052 mls @ 63 mls/hr IV .[id number] [facility] Stop: 03/12/17 17:59 Insulin Glargine (Lantus) 25 unit SC HS [facility] Last Admin: 03/11/17 22:18 Dose: 25 unit Insulin Human Regular (Novolin R) 0 unit SC ACHS [facility] PRN Reason: Protocol Last Admin: 03/12/17 07:35 Dose: 10 unit Latanoprost (Xalatan Opht) 0.02 ml OU HS [facility] Last Admin: 03/11/17 22:19 Dose: 0.02 ml Losartan Potassium (Cozaar) 100 mg PO DAILY [facility] Last Admin: 03/11/17 10:39 Dose: 100 mg Pantoprazole Sodium (Protonix Inj) 40 mg IVP Q12H [facility] Last Admin: 03/12/17 05:11 Dose: 40 mg Rosuvastatin Calcium (Crestor) 10 mg PO HS [facility] Last Admin: 03/11/17 22:19 Dose: 10 mg Timolol Maleate (Timoptic 0.5% Oph Soln) 1 drop OU BID [facility] Last Admin: 03/11/17 18:54 Dose: 1 drop Vitamin B Complex/Vit C/Folic Acid (Nephro-Alonzo) 1 tab PO 0800 [facility] Last Admin: 03/11/17 10:39 Dose: 1 tab - Labs Labs: 03/12/17 09:55 03/12/17 09:55 PT 12.3 SECONDS (9.7-12.2) H 02/18/17 05:30 INR 1.1 02/18/17 05:30 APTT 30 SECONDS (21-34) 02/18/17 05:30 - Constitutional Appears: Confused - Neck Exam Neck Exam: absent: Tenderness - Respiratory Exam Respiratory Exam: Decreased Breath Sounds - Cardiovascular Exam Cardiovascular Exam: RRR - GI/Abdominal Exam GI & Abdominal Exam: Soft, Normal Bowel Sounds. absent: Tenderness - Neurological Exam Neurological Exam: Alert, Awake. absent: Oriented x3 Assessment and Plan (1) Elevated WBC count Status: Acute (2) PUD (peptic ulcer disease) Status: Acute (3) Change in mental status Assessment & Plan: Na improving. Status: Acute (4) Clostridium difficile colitis Status: Acute (5) Dysphagia Status: Acute (6) End stage renal disease on dialysis Status: Acute (7) IDDM (insulin dependent diabetes mellitus) Status: Chronic (8) Heel ulcer Status: Acute (9) Pleural effusion Assessment & Plan: half lung Status: Acute (10) Pericardial effusion Status: Acute (11) Hyponatremia Assessment & Plan: 122 to 126 Status: Acute (12) UTI (urinary tract infection) Status: Acute (13) Nutrition disorder Assessment & Plan: Not stable for PEG. I discussed this with anesthesia today. Problems are large pl effusion, elev WBC, hyponatremia, hyperkalemia. Consider PEG when these improve. Also, mental status and appetite may improve when these improve. Na was 134 on 02/25. nOw improving to 126. Status: Acute
[2017-03-12] MEDS: HYDROmorphone 0.5 mg/0.5 ml ISec IVP PRN ×2 (13:36→19:44)
[2017-03-12] MEDS: Fluconazole IV 200mg/100 ml NS 100 ML IVPB SCH (13:43)
--- NOTE | 2017-03-12 19:10 | CP.PCM.PN ---
Subjective - Date & Time of Evaluation Date of Evaluation: 03/12/17 Time of Evaluation: 13:00 - Subjective Subjective: SEEN ON RENAL F/U SEEN ON HD .. ALERT .. SLOW IN MENTATION ALL PREVIOUS EMR REVIEWED GI NOTE APPRECIATED Objective - Vital Signs/Intake and Output Vital Signs (last 24 hours): Temp Pulse Resp BP Pulse Ox 98.5 F 80 20 164/64 H 99 03/12/17 16:00 03/12/17 16:00 03/12/17 16:00 03/12/17 16:00 03/12/17 16:00 - Medications Medications: Current Medications Acetaminophen (Tylenol 325mg Tab) 650 mg PO Q6 PRN PRN Reason: Pain, Mild (1-3) Last Admin: 03/11/17 17:49 Dose: 650 mg Amlodipine Besylate (Norvasc) 5 mg PO DAILY [facility] Last Admin: 03/12/17 10:00 Dose: 5 mg Ascorbic Acid (Vitamin C 500 Mg Tab) 500 mg PO DAILY [facility] Last Admin: 03/12/17 10:00 Dose: 500 mg Brimonidine Tartrate (Alphagan 0.2% Opht) 1 ml OU TID [facility] Last Admin: 03/12/17 13:41 Dose: 1 drop Collagenase (Santyl) 0 gm TOP DAILY [facility] Last Admin: 03/12/17 10:00 Dose: Not Given Dextrose (Dextrose 50% Inj) 0 ml IV STAT PRN; Protocol PRN Reason: Hyglycemia Protocol Dextrose (Glutose 15) 0 gm PO ONCE PRN; Protocol PRN Reason: Hypoglycemia Protocol Epoetin Maxwell (Procrit) 10,000 unit IV TTS [facility] Last Admin: 03/12/17 10:19 Dose: 10,000 unit Ergocalciferol (Drisdol 50,000 Intl Units Cap) 1 cap PO QWK [facility] Last Admin: 03/12/17 10:00 Dose: 1 cap Glucagon (Glucagen Diagnostic Kit) 0 mg IM STAT PRN; Protocol PRN Reason: Hypoglycemia Protocol Heparin Sodium (Porcine) (Heparin) 5,000 units SC Q8 [facility] Last Admin: 03/12/17 14:00 Dose: 5,000 units Heparin Sodium (Porcine) (Heparin) 3,700 units IVP TTS [facility] Stop: 03/24/17 23:59 Last Admin: 03/12/17 10:22 Dose: 3,700 units Hydralazine HCl (Apresoline) 25 mg PO BID [facility] Last Admin: 03/12/17 17:52 Dose: 25 mg Hydromorphone HCl (Dilaudid) 0.5 mg IVP Q4H PRN PRN Reason: Pain, severe (8-10) Last Admin: 03/12/17 13:36 Dose: 0.5 mg Tigecycline 50 mg/ Sodium (Chloride) 100 mls @ 100 mls/hr IVPB Q12H [facility] Last Admin: 03/12/17 08:14 Dose: 100 mls/hr Fluconazole (Diflucan Iv 200 Mg/100 Ml Ns) 100 mls @ 100 mls/hr IVPB DAILY [facility] Last Admin: 03/12/17 13:43 Dose: 100 mls/hr Sodium Chloride 35 meq/Potassium Chloride 30 meq/Magnesium Sulfate 6 meq/ Calcium Gluconate 4.5 meq/Heparin Sodium (Porcine) 1,000 units/ Amino Acids 1, 035.9052 mls @ 63 mls/hr IV .[id number] [facility] Last Admin: 03/11/17 15:21 Dose: Not Given Insulin Glargine (Lantus) 25 unit SC HS [facility] Last Admin: 03/11/17 22:18 Dose: 25 unit Insulin Human Regular (Novolin R) 0 unit SC ACHS [facility] PRN Reason: Protocol Last Admin: 03/12/17 17:53 Dose: 6 unit Latanoprost (Xalatan Opht) 0.02 ml OU HS [facility] Last Admin: 03/11/17 22:19 Dose: 0.02 ml Losartan Potassium (Cozaar) 100 mg PO DAILY [facility] Last Admin: 03/12/17 10:00 Dose: 100 mg Pantoprazole Sodium (Protonix Inj) 40 mg IVP Q12H [facility] Last Admin: 03/12/17 17:52 Dose: 40 mg Rosuvastatin Calcium (Crestor) 10 mg PO HS [facility] Last Admin: 03/11/17 22:19 Dose: 10 mg Timolol Maleate (Timoptic 0.5% Ophth Soln) 1 drop OU BID [facility] Last Admin: 03/12/17 17:53 Dose: 1 drop Vitamin B Complex/Vit C/Folic Acid (Nephro-Alonzo) 1 tab PO 0800 [facility] Last Admin: 03/12/17 08:00 Dose: 1 tab - Labs Labs: 10/19/17 09:55 03/12/17 09:55 PT 12.3 SECONDS (9.7-12.2) H 02/18/17 05:30 INR 1.1 02/18/17 05:30 APTT 30 SECONDS (21-34) 02/18/17 05:30 Assessment and Plan - Assessment and Plan (Free Text) Assessment: ESRD ON HD T T S ANEMIA OF CKD .. H/H STABLE ELECTROLYTES ABN .. BETTER ON HD MULTIPLE CO MORBIDITIES P : C/O CURRENT CARE C/O PRESENT MANAGEMENT
[2017-03-12] MEDS: (Lantus) Insulin Glargine, Recombinant SC SCH (22:13)
[2017-03-12] MEDS: Latanoprost 2.5 ml Opht Soln OU SCH (22:16)
[2017-03-12] MEDS: TPN IV SCH ×2 (23:27→23:35)
[2017-03-13] MEDS ORDERED: Dextrose 50% SYRINGE Inj (50 ml) ONE (06:53)
--- NOTE | 2017-03-13 07:22 | CP.PCM.PN ---
<Piyush Segura - Last Filed: 03/13/17 17:57> Subjective - Date & Time of Evaluation Date of Evaluation: 03/13/17 Time of Evaluation: 09:10 - Subjective Subjective: PGY-[address] Myrick Patient seen and examined. Patient is sleepy and unable to communicate with full words. ROS unable to ascertain. Patient able to recognize family and caregivers. Per nursing staff, patient is requesting to drink fluids more than usual today. Patient tolerating tube feeds at this time. Objective - Vital Signs/Intake and Output Vital Signs (last 24 hours): Temp Pulse Resp BP Pulse Ox 98 F 80 20 94/53 L 95 03/12/17 23:12 03/12/17 23:12 03/12/17 23:12 03/12/17 23:12 03/12/17 23:12 - Medications Medications: Current Medications Acetaminophen (Tylenol 325mg Tab) 650 mg PO Q6 PRN PRN Reason: Pain, Mild (1-3) Last Admin: 03/11/17 17:49 Dose: 650 mg Amlodipine Besylate (Norvasc) 5 mg PO DAILY [facility] Last Admin: 03/12/17 10:00 Dose: 5 mg Ascorbic Acid (Vitamin C 500 Mg Tab) 500 mg PO DAILY [facility] Last Admin: 03/12/17 10:00 Dose: 500 mg Brimonidine Tartrate (Alphagan 0.2% Opht) 1 ml OU TID [facility] Last Admin: 03/12/17 18:00 Dose: 1 drop Collagenase (Santyl) 0 gm TOP DAILY [facility] Last Admin: 03/12/17 10:00 Dose: Not Given Dextrose (Dextrose 50% Inj) 0 ml IV STAT PRN; Protocol PRN Reason: Hyglycemia Protocol Dextrose (Glutose 15) 0 gm PO ONCE PRN; Protocol PRN Reason: Hypoglycemia Protocol Epoetin Maxwell (Procrit) 10,000 unit IV TTS [facility] Last Admin: 03/12/17 10:19 Dose: 10,000 unit Ergocalciferol (Drisdol 50,000 Intl Units Cap) 1 cap PO QWK [facility] Last Admin: 03/12/17 10:00 Dose: 1 cap Glucagon (Glucagen Diagnostic Kit) 0 mg IM STAT PRN; Protocol PRN Reason: Hypoglycemia Protocol Heparin Sodium (Porcine) (Heparin) 5,000 units SC Q8 [facility] Last Admin: 10/20/17 05:32 Dose: 5,000 units Heparin Sodium (Porcine) (Heparin) 3,700 units IVP TTS [facility] Stop: 03/24/17 23:59 Last Admin: 03/12/17 10:22 Dose: 3,700 units Hydralazine HCl (Apresoline) 25 mg PO BID [facility] Last Admin: 03/12/17 17:52 Dose: 25 mg Hydromorphone HCl (Dilaudid) 0.5 mg IVP Q4H PRN PRN Reason: Pain, severe (8-10) Last Admin: 03/12/17 19:44 Dose: 0.5 mg Tigecycline 50 mg/ Sodium (Chloride) 100 mls @ 100 mls/hr IVPB Q12H [facility] Last Admin: 03/12/17 20:17 Dose: 100 mls/hr Fluconazole (Diflucan Iv 200 Mg/100 Ml Ns) 100 mls @ 100 mls/hr IVPB DAILY [facility] Last Admin: 03/12/17 13:43 Dose: 100 mls/hr Sodium Chloride 35 meq/Potassium Chloride 30 meq/Magnesium Sulfate 6 meq/ Calcium Gluconate 4.5 meq/Heparin Sodium (Porcine) 1,000 units/ Amino Acids 1, 035.9052 mls @ 63 mls/hr IV .[id number] [facility] Last Admin: 03/12/17 23:35 Dose: Not Given Insulin Glargine (Lantus) 25 unit SC HS [facility] Last Admin: 03/12/17 22:13 Dose: 25 unit Insulin Human Regular (Novolin R) 0 unit SC ACHS [facility] PRN Reason: Protocol Last Admin: 03/12/17 22:19 Dose: Not Given Latanoprost (Xalatan Opht) 0.02 ml OU HS [facility] Last Admin: 03/12/17 22:16 Dose: 0.02 ml Losartan Potassium (Cozaar) 100 mg PO DAILY [facility] Last Admin: 03/12/17 10:00 Dose: 100 mg Pantoprazole Sodium (Protonix Inj) 40 mg IVP Q12H [facility] Last Admin: 03/13/17 04:49 Dose: 40 mg Rosuvastatin Calcium (Crestor) 10 mg PO HS [facility] Last Admin: 03/12/17 22:15 Dose: 10 mg Timolol Maleate (Timoptic 0.5% Ophth Soln) 1 drop OU BID [facility] Last Admin: 03/12/17 17:53 Dose: 1 drop Vitamin B Complex/Vit C/Folic Acid (Nephro-Alonzo) 1 tab PO 0800 [facility] Last Admin: 03/12/17 08:00 Dose: 1 tab - Labs Labs: 03/12/17 09:55 03/12/17 09:55 PT 12.3 SECONDS (9.7-12.2) H 02/18/17 05:30 INR 1.1 02/18/17 05:30 APTT 30 SECONDS (21-34) 02/18/17 05:30 - Constitutional Appears: No Acute Distress, Chronically Ill - Head Exam Head Exam: ATRAUMATIC, NORMOCEPHALIC - Eye Exam Eye Exam: EOMI, PERRL - ENT Exam ENT Exam: Mucous Membranes Moist - Respiratory Exam Respiratory Exam: Clear to Ausculation Bilateral. absent: Rales, Rhonchi, Wheezes - Cardiovascular Exam Cardiovascular Exam: REGULAR RHYTHM, +S1, +S2 - GI/Abdominal Exam GI & Abdominal Exam: Soft, Normal Bowel Sounds. absent: Tenderness - Extremities Exam Extremities Exam: absent: Calf Tenderness, Pedal Edema Additional comments: Chronic venous stasis changes bilaterally in the legs Left foot ulcer with 10x5 cm eschar spanning lateral plantar surface s/p debridement with wound vac in place for left foot wound. - Neurological Exam Neurological Exam: Alert, Awake - Skin Skin Exam: Dry, Pallor Assessment and Plan - Assessment and Plan (Free Text) Plan: 1. Non-Healing Left Heel Ulcer 03/02: Wound vac was replaced this afternoon. Gram positive cocci grew in the blood cultures. 03/01: POD #2 s/p debridement of L foot ulcer. Patient's WBC increased to 21.7 with left shift. Lactate 2.8--> repeat 1.9; recheck blood cultures today. Plan to change wound vac on foot tomorrow. 02/26/17: Patient underwent aortofemoral angiogram via right groin with selective catheterization of left anterior femoral artery. Balloon angioplasty of popliteal artery. Pathway arthrectomy and balloon angioplasty of anterior tibial artery. 02/27/17: Debridement of left foot ulcer with wound vac placed and cultures taken. Podiatry consult - Dr. Avery, help appreciated Infectious Disease Dr. Wellington consulted, help appreciated. Dr. Broussard on board, help appreciated. Low ext arterial duplex (02/04/17): R- occlusion R post tib artery, 50-75% stenosis right mid popliteal & proximal anterior tib arteries L- occlusion of left post tib artery, >75% stenosis left proximal ant tibial artery, 50-75% stenosis left distal SFA & proximal popliteal a. Vancomycin 1000 mg IV [facility] D/C'ed on 02/22/17 Cefepime 1 gm IV Q24H 02/18/17 to 02/23/17 Zyvox 600 mg PO BID started 02/22/17-02/23/17 Current antibiotics: Tygacil 100 mg loading dose on 02/25/17 and then continued as Tygacil 50 mg IV Q12H Abdominal Angiography 02/19/17: Severe bilateral lower extremity arterial runoff with 1 vessel likely remaining patent at the right. None is continuously patent at the left lower extremity [id number]. Widely patent abdominal aorta and iliac arterial system with moderate right and [id number] left femoral arterial disease. Severe bilateral popliteal artery arterial disease. Dr. Avery recommended Left BKA given his physical exam findings. Dr. Broussard also recommends the left BKA. He stated that even if the gangrenous portion is removed, it will not heal regardless of revascularization. As of 02/25, the patient's family has decided for her to stay and have Dr. Broussard clean the wound and improve the circulation in the leg. Before this, they were adamant about getting the patient to [facility] for hyperbaric therapy to try to salvage the leg. They still do not wish for amputation at this time. Colchicine 0.6 mg PO BID added on 03/08/17 for anti-inflammatory properties. Patient is already on hemodialysis. Dilaudid 0.5 mg IV Q4 prn pain 2. Left Pleural Effusion 03/02: 500 cc clear fluid drained from the left pleura 03/01: Chest X-ray ordered showed left sided pleural effusion new since admission (see full report) Ordered thoracentesis with fluid studies Consulted Credit Advisor Dr John- jacqui f/u recommendations 3. C. Diff C. Diff studies positive Patient on isolation contact precaution Vancomycin 125 mg PO QID started--discontinued Dr. Wellington added Flagyl 500 mg IV [id number] repeat C diff and stool culture on 02/28--negative 4. Altered Mental Status 03/01: Patient obtunded this AM due to Gabapentin that was given night prior ( renally excreted). Gabapentin was discontinued. Repeat CT head without contrast was ordered this morning which was negative for acute infarct. Avoid pain medications that are renally excreted at this time. CT Head negative for Acute Territorial Infarction Patient found hypoglycemic by both and EMS with symptoms that suggest seizure episode. Patient is a poorly controlled diabetic. Monitor Accuchecks qACHS and Q4H Patient likely had an episode of neuroglycopenia and currently in post-ictal state. Due to post-ictal state, decision made to avoid narcotic pain medications. CLAIMS ADJUSTER CROP performed successful bedside swallow eval and recommended Pureed diet with thin liquids. Home PO meds restarted. Neurology consult Dr. Tanisha Aguirre, help appreciated. Thiamine 100 mg Q8H Could not get brain MRI which was neuro's recommendation due to 3 previous attempts where patient was moving too much. We do not wish to further sedate the patient due to her current mental state, so instead a repeat CT Head without contrast was done on 02/23/17. This CT head did not demonstrate any acute hemorrhagic or ischemic pathology. 5. End Stage Renal Disease on Hemodialysis On HD T,,S Dr. Ambrose nephrology consulted- help appreciated 6. Decreased oral intake Will discuss possibility of PEG tube with patient's family 03/01: Patient unable to eat due to altered mental status. Status changed to NPO at this time. Starting TPN for nutrition to be given via PICC line. 03/05/17: TPN changed to increase proteins per dietary's recommendations. -Diflucan was added empirically. 03/11: Per GI recommendations and 's consent, NGT placed and patient started on Tube Feeds Glucerna 1.5. Dietary consulted for recommendations. Nutrition recommends Goal rate 50 mL/hr Q24H to meet protein/calorie needs. 7. Hypertension 03/02: Patient resumed oral BP medications today and tolerated without issue. 03/01: Patient normotensive, held oral BP medications due to NPO status. Given Lasix 20mg IV x1 dose. Will monitor BP q4h and given medications as needed. PO Home medications: * Norvasc 5 mg PO daily * Losartan 100 mg PO daily * Furosemide 40 mg PO daily--held * Held Bumex for now Monitor BP q6h and adjust meds as needed 8. Anemia of Chronic Disease Hgb stable Likely secondary to ESRD Dr. Ambrose put for IV ferlicet 125 mg and Procrit 10,000 units IV Monitor CBC daily 9. Diabetes 03/01: Patient having multiple episodes of hypoglycemia causing mental status change. Stopping standing insulin. See BUSHEL GIRL note for more information. Accuchecks qACHS [facility] Home Lantus 30 units SC HS- reduced to 15 units HS Lantus increased to 25 units on 03/06/[address] Myrick her sliding scale coverage for the last few days Crestor 10mg PO HS 10. Prophylactic Measures SCDs Heparin 5000 units SC Q8H 1:1 observation due to agitation. Patient tries to get out of bed. Fall precautions Palliative care consulted. Dietary consulted for recommendations for TPN Disposition: This patient has a very poor prognosis. The family wishes to try to save the leg despite multiple professional opinions on the necessity of an amputation. The family initially wished for the patient to go to [facility] where hyperbaric therapy is available in order to promote healing. They wished to be cared for by their personal machine plug shaper Dr. Ware; however, Dr. Ware has become unavailable. So the family decided to remain at [facility] and attempt healing via vascular surgery to improve circulation and wound debridement of damaged tissue. They were repeatedly warned by multiple medical record librarians teacher of the risks associated with refusing a BKA and attempting to salvage the foot. The family verbalized understanding of the risks but still decide against a BKA at this time. Case DW Dr. Ramez Segura PGY-1 <Benson Myrick Jr. - Last Filed: 03/14/17 11:10> Objective - Vital Signs/Intake and Output Vital Signs (last 24 hours): Temp Pulse Resp BP Pulse Ox 99 F 76 18 127/41 L 95 03/14/17 09:15 03/14/17 09:15 03/14/17 09:15 03/14/17 09:15 03/14/17 09:15 - Medications Medications: Current Medications Acetaminophen (Tylenol 325mg Tab) 650 mg PO Q6 PRN PRN Reason: Pain, Mild (1-3) Last Admin: 03/11/17 17:49 Dose: 650 mg Amlodipine Besylate (Norvasc) 5 mg PO DAILY [facility] Last Admin: 03/13/17 09:14 Dose: 5 mg Brimonidine Tartrate (Alphagan 0.2% Opht) 1 ml OU TID [facility] Last Admin: 03/13/17 17:53 Dose: 1 drop Collagenase (Santyl) 0 gm TOP DAILY [facility] Last Admin: 03/13/17 10:00 Dose: Not Given Dextrose (Dextrose 50% Inj) 0 ml IV STAT PRN; Protocol PRN Reason: Hyglycemia Protocol Dextrose (Glutose 15) 0 gm PO ONCE PRN; Protocol PRN Reason: Hypoglycemia Protocol Epoetin Maxwell (Procrit) 10,000 unit IV TTS [facility] Last Admin: 03/12/17 10:19 Dose: 10,000 unit Glucagon (Glucagen Diagnostic Kit) 0 mg IM STAT PRN; Protocol PRN Reason: Hypoglycemia Protocol Heparin Sodium (Porcine) (Heparin) 5,000 units SC Q8 [facility] Last Admin: 03/14/17 05:07 Dose: 5,000 units Heparin Sodium (Porcine) (Heparin) 3,700 units IVP TTS [facility] Stop: 03/24/17 23:59 Last Admin: 03/12/17 10:22 Dose: 3,700 units Hydralazine HCl (Apresoline) 25 mg PO BID [facility] Last Admin: 03/13/17 17:52 Dose: 25 mg Hydromorphone HCl (Dilaudid) 0.5 mg IVP Q4H PRN PRN Reason: Pain, severe (8-10) Last Admin: 03/14/17 06:06 Dose: 0.5 mg Tigecycline 50 mg/ Sodium (Chloride) 100 mls @ 100 mls/hr IVPB Q12H [facility] Last Admin: 03/13/17 20:47 Dose: 100 mls/hr Fluconazole (Diflucan Iv 200 Mg/100 Ml Ns) 100 mls @ 100 mls/hr IVPB DAILY [facility] Last Admin: 03/13/17 10:36 Dose: 100 mls/hr Insulin Glargine (Lantus) 25 unit SC HS [facility] Last Admin: 03/12/17 22:13 Dose: 25 unit Insulin Human Regular (Novolin R) 0 unit SC ACHS ELINA PRN Reason: Protocol Last Admin: 03/13/17 22:08 Dose: Not Given Latanoprost (Xalatan Opht) 0.02 ml OU HS [facility] Last Admin: 03/13/17 22:03 Dose: 0.02 ml Losartan Potassium (Cozaar) 100 mg PO DAILY [facility] Last Admin: 03/13/17 09:14 Dose: 100 mg Pantoprazole Sodium (Protonix Inj) 40 mg IVP Q12H [facility] Last Admin: 03/14/17 03:55 Dose: 40 mg Rosuvastatin Calcium (Crestor) 10 mg PO HS [facility] Last Admin: 03/13/17 22:05 Dose: 10 mg Timolol Maleate (Timoptic 0.5% Ophth Soln) 1 drop OU BID [facility] Last Admin: 03/13/17 17:53 Dose: 1 drop - Labs Labs: 03/14/17 09:32 03/14/17 09:32 PT 12.3 SECONDS (9.7-12.2) H 02/18/17 05:30 INR 1.1 02/18/17 05:30 APTT 30 SECONDS (21-34) 02/18/17 05:30 Attending/Attestation - Attestation I have personally seen and examined this patient.: Yes I have fully participated in the care of the patient.: Yes I have reviewed all pertinent clinical information, including history, physical exam and plan: Yes Notes (Text): 03/14/17 11:10 Agree with resident note and plan of care
[2017-03-13] MEDS: Multivitamin Vitamin B Complex (Nephro-Vite) Tab PO SCH (08:00)
[2017-03-13] MEDS: (Novolin R) Insulin Human Regular 100 units/ml vial SC SCH ×4 (08:10→22:08)
[2017-03-13] MEDS: Collagenase 250 Units/gm Ointment(30 gm) TOP SCH (10:00)
[2017-03-13] MEDS: HYDROmorphone 0.5 mg/0.5 ml ISec IVP PRN ×2 (10:33→17:55)
[2017-03-13] MEDS: Brimonidine 0.2% Opth Sol (5ml) OU SCH ×3 (10:36→17:53)
[2017-03-13] MEDS: Fluconazole IV 200mg/100 ml NS 100 ML IVPB SCH (10:36)
[2017-03-13] MEDS: Latanoprost 2.5 ml Opht Soln OU SCH (22:03)
--- NOTE | 2017-03-13 23:42 | CP.PCM.PN ---
Subjective - Date & Time of Evaluation Date of Evaluation: 03/13/17 Time of Evaluation: 14:00 - Subjective Subjective: SEENON RENAL F/U IN BED .. RESPONSIVE STATES ( I DONT FEEL WELL NGT IS IN PLACE .. TOLERATING FEEDING WELL ON HD T T S Objective - Vital Signs/Intake and Output Vital Signs (last 24 hours): Temp Pulse Resp BP Pulse Ox 98.2 F 65 18 100/57 L 95 03/13/17 23:25 03/13/17 23:25 03/13/17 23:25 03/13/17 23:25 03/13/17 23:25 Intake and Output: 03/13/17 03/14/17 18:59 06:59 Intake Total 400 Output Total 0 Balance 400 - Medications Medications: Current Medications Acetaminophen (Tylenol 325mg Tab) 650 mg PO Q6 PRN PRN Reason: Pain, Mild (1-3) Last Admin: 03/11/17 17:49 Dose: 650 mg Amlodipine Besylate (Norvasc) 5 mg PO DAILY [facility] Last Admin: 03/13/17 09:14 Dose: 5 mg Brimonidine Tartrate (Alphagan 0.2% Opht) 1 ml OU TID [facility] Last Admin: 03/13/17 17:53 Dose: 1 drop Collagenase (Santyl) 0 gm TOP DAILY [facility] Last Admin: 03/13/17 10:00 Dose: Not Given Dextrose (Dextrose 50% Inj) 0 ml IV STAT PRN; Protocol PRN Reason: Hyglycemia Protocol Dextrose (Glutose 15) 0 gm PO ONCE PRN; Protocol PRN Reason: Hypoglycemia Protocol Epoetin Maxwell (Procrit) 10,000 unit IV TTS [facility] Last Admin: 03/12/17 10:19 Dose: 10,000 unit Glucagon (Glucagen Diagnostic Kit) 0 mg IM STAT PRN; Protocol PRN Reason: Hypoglycemia Protocol Heparin Sodium (Porcine) (Heparin) 5,000 units SC Q8 [facility] Last Admin: 03/13/17 22:02 Dose: 5,000 units Heparin Sodium (Porcine) (Heparin) 3,700 units IVP TTS [facility] Stop: 03/24/17 23:59 Last Admin: 03/12/17 10:22 Dose: 3,700 units Hydralazine HCl (Apresoline) 25 mg PO BID [facility] Last Admin: 03/13/17 17:52 Dose: 25 mg Hydromorphone HCl (Dilaudid) 0.5 mg IVP Q4H PRN PRN Reason: Pain, severe (8-10) Last Admin: 03/13/17 10:33 Dose: 0.5 mg Tigecycline 50 mg/ Sodium (Chloride) 100 mls @ 100 mls/hr IVPB Q12H [facility] Last Admin: 03/13/17 20:47 Dose: 100 mls/hr Fluconazole (Diflucan Iv 200 Mg/100 Ml Ns) 100 mls @ 100 mls/hr IVPB DAILY [facility] Last Admin: 03/13/17 10:36 Dose: 100 mls/hr Insulin Glargine (Lantus) 25 unit SC HS [facility] Last Admin: 03/12/17 22:13 Dose: 25 unit Insulin Human Regular (Novolin R) 0 unit SC ACHS [facility] PRN Reason: Protocol Last Admin: 03/13/17 22:08 Dose: Not Given Latanoprost (Xalatan Opht) 0.02 ml OU HS [facility] Last Admin: 03/13/17 22:03 Dose: 0.02 ml Losartan Potassium (Cozaar) 100 mg PO DAILY [facility] Last Admin: 03/13/17 09:14 Dose: 100 mg Pantoprazole Sodium (Protonix Inj) 40 mg IVP Q12H [facility] Last Admin: 03/13/17 17:53 Dose: 40 mg Rosuvastatin Calcium (Crestor) 10 mg PO HS [facility] Last Admin: 03/13/17 22:05 Dose: 10 mg Timolol Maleate (Timoptic 0.5% Oph Soln) 1 drop OU BID [facility] Last Admin: 03/13/17 17:53 Dose: 1 drop - Labs Labs: 03/12/17 09:55 03/12/17 09:55 PT 12.3 SECONDS (9.7-12.2) H 02/18/17 05:30 INR 1.1 02/18/17 05:30 APTT 30 SECONDS (21-34) 02/18/17 05:30 Assessment and Plan - Assessment and Plan (Free Text) Assessment: ESRD ON HD T T S .. WILL USE L ARM AVF ON NEXT HD ANEMIA OF CKD .. H/H STABLE C/O CURRENT CARE
[2017-03-14] MEDS: HYDROmorphone 0.5 mg/0.5 ml ISec IVP PRN ×3 (06:06→19:14)
[2017-03-14] MEDS: (Novolin R) Insulin Human Regular 100 units/ml vial SC SCH ×4 (08:30→22:18)
[2017-03-14 09:40] LABS: BASO # 0.1 K/uL (0.0-0.2); BASO % 0.6 % (0.0-2.0); EOS # 0.1 K/uL (0.0-0.7); EOS % 0.5 % (0.0-4.0); LYMPH # 1.8 K/uL (1.0-4.3); LYMPH % 6.9 % (20.0-40.0); MEAN CELL VOLUME 93.2 fL (81.0-99.0); MEAN CORPUSCULAR HEMOGLOBIN 28.8 pg (27.0-31.0); MEAN CORPUSCULAR HGB CONC 30.8 g/dL (33.0-37.0); MEAN PLATELET VOLUME 9.8 fL (7.2-11.7); MONO # 1.5 K/uL (0.0-0.8); MONO % 6.1 % (0.0-10.0); PLATELET COUNT 351 K/uL (130-400); RED CELL DISTRIBUTION WIDTH 23.9 % (11.5-14.5); WHITE BLOOD COUNT 25.5 K/uL (4.8-10.8)
[2017-03-14 09:55] LABS: BILIRUBIN,TOTAL 0.5 mg/dL (0.2-1.3); POTASSIUM 6.1 mmol/L (3.6-5.2)
[2017-03-14 09:56] LABS: ALB/GLOB RATIO 0.9 (1.0-2.1); PHOSPHOROUS 4.6 mg/dL (2.5-4.5); TOTAL PROTEIN 4.1 g/dL (6.3-8.3)
[2017-03-14 09:57] LABS: MAGNESIUM 2.1 mg/dL (1.6-2.3)
[2017-03-14] MEDS: Collagenase 250 Units/gm Ointment(30 gm) TOP SCH (10:00)
[2017-03-14 11:12] LABS: EOSINOPHIL 2 % (0-4); NEUTROPHIL 85 % (50-75); TOTAL CELLS COUNTED 100
[2017-03-14 11:14] LABS: SPHEROCYTES SLIGHT
[2017-03-14] MEDS: Epoetin Alfa 10,000 unit/ml Dialysis IV SCH (11:21)
--- NOTE | 2017-03-14 12:59 | CP.PCM.PN ---
<Jessie Warren - Last Filed: 03/14/17 12:54> Subjective - Date & Time of Evaluation Date of Evaluation: 03/14/17 Time of Evaluation: 09:00 - Subjective Subjective: Medicine Progress Note- Dr. Myrick's service: Patient seen and examined during HD this AM. Patient is tearful and not able to provide ROS. No acute events overnight per nursing. Patient is tolerating NGT feeds but expresses she is unhappy about the tube. Objective - Vital Signs/Intake and Output Vital Signs (last 24 hours): Temp Pulse Resp BP Pulse Ox 99 F 75 16 115/57 L 96 03/14/17 09:15 03/14/17 12:15 03/14/17 12:15 03/14/17 12:15 03/14/17 12:15 - Medications Medications: Current Medications Acetaminophen (Tylenol 325mg Tab) 650 mg PO Q6 PRN PRN Reason: Pain, Mild (1-3) Last Admin: 03/11/17 17:49 Dose: 650 mg Amlodipine Besylate (Norvasc) 5 mg PO DAILY [facility] Last Admin: 03/13/17 09:14 Dose: 5 mg Brimonidine Tartrate (Alphagan 0.2% Opht) 1 ml OU TID [facility] Last Admin: 03/13/17 17:53 Dose: 1 drop Collagenase (Santyl) 0 gm TOP DAILY [facility] Last Admin: 03/13/17 10:00 Dose: Not Given Dextrose (Dextrose 50% Inj) 0 ml IV STAT PRN; Protocol PRN Reason: Hyglycemia Protocol Dextrose (Glutose 15) 0 gm PO ONCE PRN; Protocol PRN Reason: Hypoglycemia Protocol Epoetin Maxwell (Procrit) 10,000 unit IV TTS [facility] Last Admin: 03/14/17 11:21 Dose: 10,000 unit Glucagon (Glucagen Diagnostic Kit) 0 mg IM STAT PRN; Protocol PRN Reason: Hypoglycemia Protocol Heparin Sodium (Porcine) (Heparin) 5,000 units SC Q8 [facility] Last Admin: 03/14/17 05:07 Dose: 5,000 units Heparin Sodium (Porcine) (Heparin) 3,700 units IVP TTS [facility] Stop: 03/24/17 23:59 Last Admin: 03/14/17 11:21 Dose: 3,700 units Hydralazine HCl (Apresoline) 25 mg PO BID [facility] Last Admin: 03/13/17 17:52 Dose: 25 mg Hydromorphone HCl (Dilaudid) 0.5 mg IVP Q4H PRN PRN Reason: Pain, severe (8-10) Last Admin: 03/14/17 06:06 Dose: 0.5 mg Tigecycline 50 mg/ Sodium (Chloride) 100 mls @ 100 mls/hr IVPB Q12H [facility] Last Admin: 03/13/17 20:47 Dose: 100 mls/hr Fluconazole (Diflucan Iv 200 Mg/100 Ml Ns) 100 mls @ 100 mls/hr IVPB DAILY [facility] Last Admin: 03/13/17 10:36 Dose: 100 mls/hr Insulin Glargine (Lantus) 25 unit SC HS [facility] Last Admin: 03/12/17 22:13 Dose: 25 unit Insulin Human Regular (Novolin R) 0 unit SC ACHS [facility] PRN Reason: Protocol Last Admin: 03/13/17 22:08 Dose: Not Given Latanoprost (Xalatan Opht) 0.02 ml OU HS [facility] Last Admin: 03/13/17 22:03 Dose: 0.02 ml Losartan Potassium (Cozaar) 100 mg PO DAILY [facility] Last Admin: 03/13/17 09:14 Dose: 100 mg Pantoprazole Sodium (Protonix Inj) 40 mg IVP Q12H [facility] Last Admin: 03/14/17 03:55 Dose: 40 mg Rosuvastatin Calcium (Crestor) 10 mg PO HS [facility] Last Admin: 03/13/17 22:05 Dose: 10 mg Timolol Maleate (Timoptic 0.5% [facility]) 1 drop OU BID [facility] Last Admin: 03/13/17 17:53 Dose: 1 drop - Labs Labs: 03/14/17 09:32 03/14/17 09:32 PT 12.3 SECONDS (9.7-12.2) H 02/18/17 05:30 INR 1.1 02/18/17 05:30 APTT 30 SECONDS (21-34) 02/18/17 05:30 - Constitutional Appears: No Acute Distress - Head Exam Head Exam: NORMAL INSPECTION, NORMOCEPHALIC - Eye Exam Eye Exam: EOMI, Normal appearance - ENT Exam ENT Exam: Mucous Membranes Dry Additional comments: +NGT in place - Neck Exam Neck Exam: Full ROM - Respiratory Exam Respiratory Exam: Clear to Ausculation Bilateral, NORMAL BREATHING PATTERN - Cardiovascular Exam Cardiovascular Exam: REGULAR RHYTHM, +S1 - GI/Abdominal Exam GI & Abdominal Exam: Soft. absent: Distended, Tenderness - Extremities Exam Extremities Exam: Pedal Edema Additional comments: +wound vac in place over left heel - Neurological Exam Neurological Exam: Alert, Awake - Psychiatric Exam Psychiatric exam: Depressed, Flat Affect - Skin Skin Exam: Dry, Pallor, Warm Assessment and Plan - Assessment and Plan (Free Text) Assessment: 1. Non-Healing Left Heel Ulcer Podiatry consult - Dr. Avery, help appreciated Infectious Disease Dr. Wellington consulted, help appreciated. Dr. Broussard on board, help appreciated. 03/14: continue current management belo. 03/02: Wound vac was replaced this afternoon. Gram positive cocci grew in the blood cultures. 03/01: s/p debridement of L foot ulcer 02/27/17. Patient's WBC increased to 21.7 with left shift. Lactate 2.8--> repeat 1.9; recheck blood cultures today. 02/26/17: Patient underwent aortofemoral angiogram via right groin with selective catheterization of left anterior femoral artery. Balloon angioplasty of popliteal artery. Pathway arthrectomy and balloon angioplasty of anterior tibial artery. 02/27/17: Debridement of left foot ulcer with wound vac placed and cultures taken. Antibiotics: * Vancomycin 1000 mg IV [facility] D/C'ed on 02/22/17 * Cefepime 1 gm IV Q24H 02/18/17 to 02/23/17 * Zyvox 600 mg PO BID started 02/22/17-02/23/17 * Continue Tygacil 100 mg loading dose on 02/25/17 and then continued as Tygacil 50 mg IV Q12H - Day 17 * Continue Diflucan IVPB- Day 11 Pain control: * Dilaudid 0.5 mg IV Q4 prn pain Low ext arterial duplex (02/04/17): R- occlusion R post tib artery, 50-75% stenosis right mid popliteal & proximal anterior tib arteries L- occlusion of left post tib artery, >75% stenosis left proximal ant tibial artery, 50-75% stenosis left distal SFA & proximal popliteal a. Abdominal Angiography 02/19/17: Severe bilateral lower extremity arterial runoff with 1 vessel likely remaining patent at the right. None is continuously patent at the left lower extremity [id number]. Widely patent abdominal aorta and iliac arterial system with moderate right and [id number] left femoral arterial disease. Severe bilateral popliteal artery arterial disease. Dr. Avery recommended Left BKA given his physical exam findings. Dr. Broussard also recommends the left BKA. He stated that even if the gangrenous portion is removed, it will not heal regardless of revascularization. As of 02/25, the patient's family has decided for her to stay and have Dr. Broussard clean the wound and improve the circulation in the leg. Before this, they were adamant about getting the patient to [facility] for hyperbaric therapy to try to salvage the leg. They still do not wish for amputation at this time. 2. Left Pleural Effusion 03/14: CXR donw 03/11 continues to show moderate left pleural effusion. Patient not in respiratory distress. HD today. 03/02: 500 cc clear fluid drained from the left pleura 03/01: Chest X-ray ordered showed left sided pleural effusion new since admission (see full report) Ordered thoracentesis with fluid studies Consulted Contract Administration Manager Dr John- jacqui f/u recommendations 3. C. Diff C. Diff studies positive. Patient on isolation contact precaution Vancomycin 125 mg PO QID started--discontinued Dr. Wellington added Flagyl 500 mg IV [id number] Repeat C diff and stool culture on 02/28-negative 4. Altered Mental Status 03/14: Patient is still not able to speak. She has NGT in place. Tolerating feeds. 03/01: Patient obtunded this AM due to Gabapentin that was given night prior ( renally excreted). Gabapentin was discontinued. Repeat CT head without contrast was ordered this morning which was negative for acute infarct. Avoid pain medications that are renally excreted at this time. CT Head negative for Acute Territorial Infarction Patient found hypoglycemic by both and EMS with symptoms that suggest seizure episode. Patient is a poorly controlled diabetic. Monitor Accuchecks qACHS and Q4H Patient likely had an episode of neuroglycopenia and currently in post-ictal state. Due to post-ictal state, decision made to avoid narcotic pain medications. [employer] DATA ARCHITECT performed successful bedside swallow eval and recommended Pureed diet with thin liquids. Home PO meds restarted. Neurology consult Dr. Tanisha Aguirre, help appreciated. Thiamine 100 mg Q8H Could not get brain MRI which was neuro's recommendation due to 3 previous attempts where patient was moving too much. We do not wish to further sedate the patient due to her current mental state, so instead a repeat CT Head without contrast was done on 02/23/17. This CT head did not demonstrate any acute hemorrhagic or ischemic pathology. 5. End Stage Renal Disease on Hemodialysis On HD T,,S Dr. Ambrose nephrology consulted- help appreciated 6. Decreased oral intake 03/14: tolerating tube feeds. 03/11: Per GI recommendations and 's consent, NGT placed and patient started on Tube Feeds Glucerna 1.5. Dietary consulted for recommendations. Nutrition recommends Goal rate 50 mL/hr Q24H to meet protein/calorie needs. 03/01: Patient unable to eat due to altered mental status. Status changed to NPO at this time. Starting TPN for nutrition to be given via PICC line. 03/05/17: TPN changed to increase proteins per dietary's recommendations. 7. Hypertension 03/14: Continue current medications. 03/02: Patient resumed oral BP medications today and tolerated without issue. 03/01: Patient normotensive, held oral BP medications due to NPO status. Given Lasix 20mg IV x1 dose. Will monitor BP q4h and given medications as needed. PO Home medications: * Norvasc 5 mg PO daily * Losartan 100 mg PO daily * Furosemide 40 mg PO daily-HELD * Bumex - HELD Monitor BP q6h and adjust meds as needed 8. Anemia of Chronic Disease Hgb 8.6 this AM Likely secondary to ESRD Dr. Ambrose put for IV ferlicet 125 mg and Procrit 10,000 units IV Monitor CBC daily 9. Diabetes Patient had episodes of hypoglycemia 03/01 causing mental status changes, which was also reason for admission. D50 as needed. Lantus increased to 25 units on 03/06/17 Accuchecks qACHS Hgb A1C 8.9 on 02/18/17 10. Prophylactic Measures SCDs Heparin 5000 units SC Q8H 1:1 observation due to agitation. Patient tries to get out of bed. Fall precautions Palliative care consulted. Dietary consulted for recommendations for TPN Disposition: This patient has a very poor prognosis. The family wishes to try to save the leg despite multiple professional opinions on the necessity of an amputation. The family initially wished for the patient to go to [facility] where hyperbaric therapy is available in order to promote healing. They wished to be cared for by their personal machine setter and repairer Dr. Ware; however, Dr. Ware has become unavailable. So the family decided to remain at [facility] and attempt healing via vascular surgery to improve circulation and wound debridement of damaged tissue. They were repeatedly warned by multiple biomedical repair technician of the risks associated with refusing a BKA and attempting to salvage the foot. The family verbalized understanding of the risks but still decide against a BKA at this time. <Benson Myrick Jr. - Last Filed: 03/29/17 12:58> Objective - Vital Signs/Intake and Output Vital Signs (last 24 hours): Temp Pulse Resp BP Pulse Ox 98.5 F 90 30 H 123/46 L 98 03/29/17 07:00 03/29/17 10:00 03/29/17 10:00 03/29/17 08:14 03/29/17 10:00 Intake and Output: 03/29/17 03/29/17 06:59 18:59 Intake Total Balance - Medications Medications: Current Medications Acetaminophen (Tylenol 325mg Tab) 650 mg PO Q6 PRN PRN Reason: Pain, moderate (4-7) Last Admin: 03/28/17 13:21 Dose: 650 mg Brimonidine Tartrate (Alphagan 0.2% Opht) 1 ml OU TID [facility] Last Admin: 03/29/17 09:39 Dose: 1 drop Collagenase (Santyl) 0 gm TOP DAILY [facility] Last Admin: 03/29/17 09:59 Dose: 1 applic Dextrose (Dextrose 50% Inj) 0 ml IV STAT PRN; Protocol PRN Reason: Hyglycemia Protocol Dextrose (Glutose 15) 0 gm PO ONCE PRN; Protocol PRN Reason: Hypoglycemia Protocol Epoetin Maxwell (Procrit) 10,000 unit IV TTS [facility] Last Admin: 03/28/17 10:33 Dose: 10,000 unit Ergocalciferol (Drisdol 50,000 Intl Units Cap) 1 cap PO Q7D [facility] Last Admin: 03/24/17 00:47 Dose: 1 cap Glucagon (Glucagen Diagnostic Kit) 0 mg IM STAT PRN; Protocol PRN Reason: Hypoglycemia Protocol Heparin Sodium (Porcine) (Heparin) 5,000 units SC Q12 [facility] Last Admin: 03/29/17 09:41 Dose: 5,000 units Vancomycin/Sodium Chloride (Vancomycin 1 Gm/Ns 200 Ml) 1 gm in 200 mls @ 133.333 mls/hr IVPB TTS [facility] Last Admin: 03/28/17 13:26 Dose: 133.333 mls/hr Insulin Glargine (Lantus) 25 unit SC HS [facility] Last Admin: 03/16/17 22:27 Dose: Not Given Insulin Human Regular (Novolin R) 0 unit SC ACHS [facility] PRN Reason: Protocol Last Admin: 03/29/17 12:20 Dose: 4 unit Latanoprost (Xalatan Opht) 0.02 ml OU HS [facility] Last Admin: 03/28/17 21:32 Dose: 0.02 ml Lisinopril (Zestril) 20 mg PO DAILY [facility] Last Admin: 03/29/17 10:03 Dose: 20 mg Pantoprazole Sodium (Protonix Ec Tab) 40 mg PO DAILY [facility] Last Admin: 03/29/17 09:59 Dose: 40 mg Rosuvastatin Calcium (Crestor) 10 mg PO HS [facility] Last Admin: 03/28/17 21:32 Dose: 10 mg Timolol Maleate (Timoptic 0.5% Oph Soln) 1 drop OU BID [facility] Last Admin: 03/29/17 09:38 Dose: 1 drop Vitamin B Complex/Vit C/Folic Acid (Nephro-Alonzo) 1 tab PO 0800 [facility] Last Admin: 03/29/17 08:09 Dose: 1 tab - Labs Labs: 03/29/17 06:45 03/29/17 06:45 PT 12.3 SECONDS (9.7-12.2) H 02/18/17 05:30 INR 1.1 02/18/17 05:30 APTT 30 SECONDS (21-34) 02/18/17 05:30 Attending/Attestation - Attestation I have personally seen and examined this patient.: Yes I have fully participated in the care of the patient.: Yes I have reviewed all pertinent clinical information, including history, physical exam and plan: Yes Notes (Text): 03/29/17 12:58 Agree with resident note and plan of care
[2017-03-14] MEDS: Fluconazole IV 200mg/100 ml NS 100 ML IVPB SCH (13:27)
[2017-03-14] MEDS: Brimonidine 0.2% Opth Sol (5ml) OU SCH ×3 (13:28→18:05)
--- NOTE | 2017-03-14 13:58 | CP.PCM.PN ---
Subjective - Date & Time of Evaluation Date of Evaluation: 03/14/17 Time of Evaluation: 13:54 - Subjective Subjective: No new c/o. Unhappy with NGT feedings Objective - Vital Signs/Intake and Output Vital Signs (last 24 hours): Temp Pulse Resp BP Pulse Ox 97.9 F 82 20 134/71 98 03/14/17 12:58 03/14/17 12:58 03/14/17 12:58 03/14/17 12:58 03/14/17 12:58 - Medications Medications: Current Medications Acetaminophen (Tylenol 325mg Tab) 650 mg PO Q6 PRN PRN Reason: Pain, Mild (1-3) Last Admin: 03/11/17 17:49 Dose: 650 mg Amlodipine Besylate (Norvasc) 5 mg PO DAILY [facility] Last Admin: 03/14/17 13:30 Dose: 5 mg Brimonidine Tartrate (Alphagan 0.2% Opht) 1 ml OU TID [facility] Last Admin: 03/14/17 13:29 Dose: 1 drop Collagenase (Santyl) 0 gm TOP DAILY [facility] Last Admin: 03/14/17 10:00 Dose: Not Given Dextrose (Dextrose 50% Inj) 0 ml IV STAT PRN; Protocol PRN Reason: Hyglycemia Protocol Dextrose (Glutose 15) 0 gm PO ONCE PRN; Protocol PRN Reason: Hypoglycemia Protocol Epoetin Maxwell (Procrit) 10,000 unit IV TTS [facility] Last Admin: 03/14/17 11:21 Dose: 10,000 unit Glucagon (Glucagen Diagnostic Kit) 0 mg IM STAT PRN; Protocol PRN Reason: Hypoglycemia Protocol Heparin Sodium (Porcine) (Heparin) 5,000 units SC Q8 [facility] Last Admin: 03/14/17 13:28 Dose: 5,000 units Heparin Sodium (Porcine) (Heparin) 3,700 units IVP TTS [facility] Stop: 03/24/17 23:59 Last Admin: 03/14/17 11:21 Dose: 3,700 units Hydralazine HCl (Apresoline) 25 mg PO BID [facility] Last Admin: 03/14/17 13:30 Dose: 25 mg Hydromorphone HCl (Dilaudid) 0.5 mg IVP Q4H PRN PRN Reason: Pain, severe (8-10) Last Admin: 03/14/17 13:30 Dose: 0.5 mg Tigecycline 50 mg/ Sodium (Chloride) 100 mls @ 100 mls/hr IVPB Q12H [facility] Last Admin: 03/13/17 20:47 Dose: 100 mls/hr Fluconazole (Diflucan Iv 200 Mg/100 Ml Ns) 100 mls @ 100 mls/hr IVPB DAILY [facility] Last Admin: 03/14/17 13:27 Dose: 100 mls/hr Insulin Glargine (Lantus) 25 unit SC HS [facility] Last Admin: 03/12/17 22:13 Dose: 25 unit Insulin Human Regular (Novolin R) 0 unit SC ACHS [facility] PRN Reason: Protocol Last Admin: 03/14/17 13:44 Dose: 2 unit Latanoprost (Xalatan Opht) 0.02 ml OU HS [facility] Last Admin: 03/13/17 22:03 Dose: 0.02 ml Losartan Potassium (Cozaar) 100 mg PO DAILY [facility] Last Admin: 03/14/17 13:30 Dose: 100 mg Pantoprazole Sodium (Protonix Inj) 40 mg IVP Q12H [facility] Last Admin: 03/14/17 03:55 Dose: 40 mg Rosuvastatin Calcium (Crestor) 10 mg PO HS [facility] Last Admin: 03/13/17 22:05 Dose: 10 mg Timolol Maleate (Timoptic 0.5% [facility]) 1 drop OU BID [facility] Last Admin: 03/14/17 13:28 Dose: 1 drop - Labs Labs: 03/14/17 09:32 03/14/17 09:32 PT 12.3 SECONDS (9.7-12.2) H 02/18/17 05:30 INR 1.1 02/18/17 05:30 APTT 30 SECONDS (21-34) 02/18/17 05:30 - Constitutional Appears: No Acute Distress - Respiratory Exam Respiratory Exam: NORMAL BREATHING PATTERN - Cardiovascular Exam Cardiovascular Exam: REGULAR RHYTHM - GI/Abdominal Exam GI & Abdominal Exam: Soft, Normal Bowel Sounds. absent: Tenderness Assessment and Plan (1) Sepsis Assessment & Plan: Continue current therapy per ID Status: Acute (2) Dysphagia Assessment & Plan: Continue NGT feedings. Not currently a candidate for PEG. For reevaluation next week by Dr Posada/Ariel. Status: Acute (3) Hyponatremia Assessment & Plan: Being corrected. Status: Acute
--- NOTE | 2017-03-14 17:26 | CP.PCM.PN ---
Subjective - Date & Time of Evaluation Date of Evaluation: 03/14/17 Time of Evaluation: 14:00 - Subjective Subjective: SEEN ON RENAL F/U RECIEVED HER HD EARLIAR NO CHANGE IN CLINICAL CONDITIONS ALL PREVIOUS EMR REVIEWED Objective - Vital Signs/Intake and Output Vital Signs (last 24 hours): Temp Pulse Resp BP Pulse Ox 98.8 F 78 20 124/60 96 03/14/17 15:42 03/14/17 15:42 03/14/17 15:42 03/14/17 15:42 03/14/17 15:42 - Medications Medications: Current Medications Acetaminophen (Tylenol 325mg Tab) 650 mg PO Q6 PRN PRN Reason: Pain, Mild (1-3) Last Admin: 03/11/17 17:49 Dose: 650 mg Amlodipine Besylate (Norvasc) 5 mg PO DAILY [facility] Last Admin: 03/14/17 13:30 Dose: 5 mg Brimonidine Tartrate (Alphagan 0.2% Opht) 1 ml OU TID [facility] Last Admin: 03/14/17 13:29 Dose: 1 drop Collagenase (Santyl) 0 gm TOP DAILY [facility] Last Admin: 03/14/17 10:00 Dose: Not Given Dextrose (Dextrose 50% Inj) 0 ml IV STAT PRN; Protocol PRN Reason: Hyglycemia Protocol Dextrose (Glutose 15) 0 gm PO ONCE PRN; Protocol PRN Reason: Hypoglycemia Protocol Epoetin Maxwell (Procrit) 10,000 unit IV TTS [facility] Last Admin: 03/14/17 11:21 Dose: 10,000 unit Glucagon (Glucagen Diagnostic Kit) 0 mg IM STAT PRN; Protocol PRN Reason: Hypoglycemia Protocol Heparin Sodium (Porcine) (Heparin) 5,000 units SC Q8 [facility] Last Admin: 03/14/17 13:28 Dose: 5,000 units Heparin Sodium (Porcine) (Heparin) 3,700 units IVP TTS [facility] Stop: 03/24/17 23:59 Last Admin: 03/14/17 11:21 Dose: 3,700 units Hydralazine HCl (Apresoline) 25 mg PO BID [facility] Last Admin: 03/14/17 13:30 Dose: 25 mg Hydromorphone HCl (Dilaudid) 0.5 mg IVP Q4H PRN PRN Reason: Pain, severe (8-10) Last Admin: 03/14/17 13:30 Dose: 0.5 mg Tigecycline 50 mg/ Sodium (Chloride) 100 mls @ 100 mls/hr IVPB Q12H [facility] Last Admin: 03/14/17 14:43 Dose: 100 mls/hr Fluconazole (Diflucan Iv 200 Mg/100 Ml Ns) 100 mls @ 100 mls/hr IVPB DAILY [facility] Last Admin: 03/14/17 13:27 Dose: 100 mls/hr Insulin Glargine (Lantus) 25 unit SC HS [facility] Last Admin: 03/12/17 22:13 Dose: 25 unit Insulin Human Regular (Novolin R) 0 unit SC ACHS [facility] PRN Reason: Protocol Last Admin: 03/14/17 17:15 Dose: 8 unit Latanoprost (Xalatan Opht) 0.02 ml OU HS [facility] Last Admin: 03/13/17 22:03 Dose: 0.02 ml Losartan Potassium (Cozaar) 100 mg PO DAILY [facility] Last Admin: 03/14/17 13:30 Dose: 100 mg Pantoprazole Sodium (Protonix Inj) 40 mg IVP Q12H [facility] Last Admin: 03/14/17 17:12 Dose: 40 mg Rosuvastatin Calcium (Crestor) 10 mg PO HS [facility] Last Admin: 03/13/17 22:05 Dose: 10 mg Timolol Maleate [facility] 1 drop OU BID [facility] Last Admin: 03/14/17 13:28 Dose: 1 drop - Labs Labs: 03/14/17 09:32 03/14/17 09:32 PT 12.3 SECONDS (9.7-12.2) H 02/18/17 05:30 INR 1.1 02/18/17 05:30 APTT 30 SECONDS (21-34) 02/18/17 05:30 Assessment and Plan - Assessment and Plan (Free Text) Assessment: ESRD ON HD T T S .. TO BE C/O ANEMIA OF CKD .. H/H STABLE MULTIPLE CO MORBIDITIES C/O CURRENT CARE C/O PRESENT MEDS
[2017-03-14] MEDS: Latanoprost 2.5 ml Opht Soln OU SCH (22:18)
[2017-03-14] MEDS: (Lantus) Insulin Glargine, Recombinant SC SCH (22:19)
[2017-03-15] MEDS: HYDROmorphone 0.5 mg/0.5 ml ISec IVP PRN (02:15)
[2017-03-15] MEDS: (Novolin R) Insulin Human Regular 100 units/ml vial SC SCH ×4 (08:11→22:08)
[2017-03-15] MEDS: Fluconazole IV 200mg/100 ml NS 100 ML IVPB SCH (10:25)
[2017-03-15] MEDS: Brimonidine 0.2% Opth Sol (5ml) OU SCH ×3 (10:25→18:00)
--- NOTE | 2017-03-15 11:13 | CP.PCM.PN ---
<Jessie Warren - Last Filed: 03/15/17 11:09> Subjective - Date & Time of Evaluation Date of Evaluation: 03/15/17 Time of Evaluation: 08:00 - Subjective Subjective: Medicine Progress Note- Dr. Myrick's Service: Patient seen and examined at bedside this AM. Patient is saying she is very thirsty. She was not able to say anything else. NGT is in place. As per nursing , it had to be advanced a little last night due to it coming out. asking when the wound vac is coming off. No other issues or complaints. Patient had HD yesterday, which she tolerated well. Objective - Vital Signs/Intake and Output Vital Signs (last 24 hours): Temp Pulse Resp BP Pulse Ox 98.3 F 86 20 136/70 96 03/15/17 07:30 03/15/17 07:30 03/15/17 07:30 03/15/17 07:30 03/15/17 07:30 - Medications Medications: Current Medications Acetaminophen (Tylenol 325mg Tab) 650 mg PO Q6 PRN PRN Reason: Pain, Mild (1-3) Last Admin: 03/11/17 17:49 Dose: 650 mg Amlodipine Besylate (Norvasc) 5 mg PO DAILY REPLACED BY [facility] Last Admin: 03/15/17 10:25 Dose: 5 mg Brimonidine Tartrate (Alphagan 0.2% Opht) 1 ml OU TID REPLACED BY [facility] Last Admin: 03/15/17 10:25 Dose: 1 drop Collagenase (Santyl) 0 gm TOP DAILY REPLACED BY [facility] Last Admin: 03/14/17 10:00 Dose: Not Given Dextrose (Dextrose 50% Inj) 0 ml IV STAT PRN; Protocol PRN Reason: Hyglycemia Protocol Dextrose (Glutose 15) 0 gm PO ONCE PRN; Protocol PRN Reason: Hypoglycemia Protocol Epoetin Maxwell (Procrit) 10,000 unit IV TTS REPLACED BY [facility] Last Admin: 03/14/17 11:21 Dose: 10,000 unit Glucagon (Glucagen Diagnostic Kit) 0 mg IM STAT PRN; Protocol PRN Reason: Hypoglycemia Protocol Heparin Sodium (Porcine) (Heparin) 5,000 units SC Q8 REPLACED BY [facility] Last Admin: 03/15/17 05:56 Dose: 5,000 units Heparin Sodium (Porcine) (Heparin) 3,700 units IVP TTS REPLACED BY [facility] Stop: 03/24/17 23:59 Last Admin: 03/14/17 11:21 Dose: 3,700 units Hydralazine HCl (Apresoline) 25 mg PO BID REPLACED BY [facility] Last Admin: 03/15/17 10:25 Dose: 25 mg Hydromorphone HCl (Dilaudid) 0.5 mg IVP Q4H PRN PRN Reason: Pain, severe (8-10) Last Admin: 03/15/17 02:15 Dose: 0.5 mg Tigecycline 50 mg/ Sodium (Chloride) 100 mls @ 100 mls/hr IVPB Q12H [facility] Last Admin: 03/15/17 08:14 Dose: 100 mls/hr Fluconazole (Diflucan Iv 200 Mg/100 Ml Ns) 100 mls @ 100 mls/hr IVPB DAILY REPLACED BY [facility] Last Admin: 03/15/17 10:25 Dose: 100 mls/hr Insulin Glargine (Lantus) 25 unit SC HS REPLACED BY [facility] Last Admin: 03/14/17 22:19 Dose: Not Given Insulin Human Regular (Novolin R) 0 unit SC ACHS [facility] PRN Reason: Protocol Last Admin: 03/15/17 08:11 Dose: 8 unit Latanoprost (Xalatan Opht) 0.02 ml OU HS REPLACED BY [facility] Last Admin: 03/14/17 22:18 Dose: 0.02 ml Losartan Potassium (Cozaar) 100 mg PO DAILY REPLACED BY [facility] Last Admin: 03/15/17 10:25 Dose: 100 mg Pantoprazole Sodium (Protonix Inj) 40 mg IVP Q12H REPLACED BY [facility] Last Admin: 03/15/17 04:20 Dose: 40 mg Rosuvastatin Calcium (Crestor) 10 mg PO HS REPLACED BY [facility] Last Admin: 03/14/17 22:20 Dose: 10 mg Timolol Maleate (Timoptic 0.5% Ophth Soln) 1 drop OU BID REPLACED BY [facility] Last Admin: 03/15/17 10:25 Dose: 1 drop - Labs Labs: 03/14/17 09:32 03/14/17 09:32 PT 12.3 SECONDS (9.7-12.2) H 02/18/17 05:30 INR 1.1 02/18/17 05:30 APTT 30 SECONDS (21-34) 02/18/17 05:30 - Constitutional Appears: No Acute Distress - Head Exam Head Exam: NORMAL INSPECTION, NORMOCEPHALIC - Eye Exam Eye Exam: EOMI, Normal appearance - ENT Exam ENT Exam: Mucous Membranes Moist Additional comments: +NGT - Neck Exam Neck Exam: Full ROM, Normal Inspection - Respiratory Exam Respiratory Exam: Decreased Breath Sounds - Cardiovascular Exam Cardiovascular Exam: REGULAR RHYTHM, +S1, +S2 - GI/Abdominal Exam GI & Abdominal Exam: Soft. absent: Distended, Tenderness - Extremities Exam Extremities Exam: Normal Inspection. absent: Pedal Edema - Neurological Exam Neurological Exam: Alert, Awake. absent: Oriented x3 - Psychiatric Exam Psychiatric exam: Flat Affect - Skin Skin Exam: Dry, Pallor, Warm Assessment and Plan - Assessment and Plan (Free Text) Assessment: 1. Non-Healing Left Heel Ulcer Podiatry consult - Dr. Avery, help appreciated Infectious Disease Dr. Wellington consulted, help appreciated. Dr. Broussard on board, help appreciated. 03/15: continue current management below. 03/11: wound vac was replaced this afternoon. 03/02: Wound vac was replaced this afternoon. Gram positive cocci grew in the blood cultures. 03/01: s/p debridement of L foot ulcer 02/27/17. Patient's WBC increased to 21.7 with left shift. Lactate 2.8--> repeat 1.9; recheck blood cultures today. 02/26: Patient underwent aortofemoral angiogram via right groin with selective catheterization of left anterior femoral artery. Balloon angioplasty of popliteal artery. Pathway arthrectomy and balloon angioplasty of anterior tibial artery. 02/27: Debridement of left foot ulcer with wound vac placed and cultures taken. Antibiotics: * Vancomycin 1000 mg IV [facility] D/C'ed on 02/22/17 * Cefepime 1 gm IV Q24H 02/18/17 to 02/23/17 * Zyvox 600 mg PO BID started 02/22/17-02/23/17 * Continue Tygacil 100 mg loading dose on 02/25/17 and then continued as Tygacil 50 mg IV Q12H - Day 17 * Continue Diflucan IVPB- Day 11 Pain control: * Dilaudid 0.5 mg IV Q4 prn pain Low ext arterial duplex (02/04/17): R- occlusion R post tib artery, 50-75% stenosis right mid popliteal & proximal anterior tib arteries L- occlusion of left post tib artery, >75% stenosis left proximal ant tibial artery, 50-75% stenosis left distal SFA & proximal popliteal a. Abdominal Angiography 02/19/17: Severe bilateral lower extremity arterial runoff with 1 vessel likely remaining patent at the right. None is continuously patent at the left lower extremity [id number]. Widely patent abdominal aorta and iliac arterial system with moderate right and [id number] left femoral arterial disease. Severe bilateral popliteal artery arterial disease. Dr. Avery recommended Left BKA given his physical exam findings. Dr. Broussard also recommends the left BKA. He stated that even if the gangrenous portion is removed, it will not heal regardless of revascularization. As of 02/25, the patient's family has decided for her to stay and have Dr. Broussard clean the wound and improve the circulation in the leg. Before this, they were adamant about getting the patient to [facility] for hyperbaric therapy to try to salvage the leg. They still do not wish for amputation at this time. 2. Left Pleural Effusion 03/15: CXR donw 03/11 continues to show moderate left pleural effusion. Patient not in respiratory distress. HD yesterday. 03/02: 500 cc clear fluid drained from the left pleura 03/01: Chest X-ray ordered showed left sided pleural effusion new since admission (see full report) Ordered thoracentesis with fluid studies Consulted Grievance Coordinator Dr John- jacqui f/u recommendations 3. C. Diff C. Diff studies positive. Patient on isolation contact precaution Vancomycin 125 mg PO QID started--discontinued Dr. Wellington added Flagyl 500 mg IV [id number] Repeat C diff and stool culture on 02/28-negative 4. Altered Mental Status 03/15: Patient is still moaning and mumbling, with some speech. She has NGT in place. Tolerating feeds. 03/01: Patient obtunded this AM due to Gabapentin that was given night prior ( renally excreted). Gabapentin was discontinued. Repeat CT head without contrast was ordered this morning which was negative for acute infarct. Avoid pain medications that are renally excreted at this time. CT Head negative for Acute Territorial Infarction Patient found hypoglycemic by both and EMS with symptoms that suggest seizure episode. Patient is a poorly controlled diabetic. Monitor Accuchecks qACHS and Q4H Patient likely had an episode of neuroglycopenia and currently in post-ictal state. Due to post-ictal state, decision made to avoid narcotic pain medications. POLISHING MACHINE TENDER performed successful bedside swallow eval and recommended Pureed diet with thin liquids. Home PO meds restarted. Neurology consult Dr. Tanisha Aguirre, help appreciated. Thiamine 100 mg Q8H Could not get brain MRI which was neuro's recommendation due to 3 previous attempts where patient was moving too much. We do not wish to further sedate the patient due to her current mental state, so instead a repeat CT Head without contrast was done on 02/23/17. This CT head did not demonstrate any acute hemorrhagic or ischemic pathology. 5. End Stage Renal Disease on Hemodialysis On HD T,,S Dr. Ambrose nephrology consulted- help appreciated 6. Decreased oral intake 03/15: tolerating tube feeds. As per GI, not currently a candidate for PEG. For reevaluation next week by Dr Posada/Ariel. 03/11: Per GI recommendations and 's consent, NGT placed and patient started on Tube Feeds Glucerna 1.5. Dietary consulted for recommendations. Nutrition recommends Goal rate 50 mL/hr Q24H to meet protein/calorie needs. 03/01: Patient unable to eat due to altered mental status. Status changed to NPO at this time. Starting TPN for nutrition to be given via PICC line. 03/05/17: TPN changed to increase proteins per dietary's recommendations. 7. Hypertension 03/15: Continue current medications. 03/02: Patient resumed oral BP medications today and tolerated without issue. 03/01: Patient normotensive, held oral BP medications due to NPO status. Given Lasix 20mg IV x1 dose. Will monitor BP q4h and given medications as needed. PO Home medications: * Norvasc 5 mg PO daily * Losartan 100 mg PO daily * Furosemide 40 mg PO daily-HELD * Bumex - HELD Monitor BP q6h and adjust meds as needed 8. Anemia of Chronic Disease Hgb 8.6 03/14/17 Likely secondary to ESRD Dr. Ambrose put for IV ferlicet 125 mg and Procrit 10,000 units IV Monitor CBC daily 9. Diabetes Patient had episodes of hypoglycemia 03/01 causing mental status changes, which was also reason for admission. D50 as needed. Lantus increased to 25 units on 03/06/17 Accuchecks qACHS Hgb A1C 8.9 on 02/18/17 10. Prophylactic Measures SCDs Heparin 5000 units SC Q8H 1:1 observation due to agitation. Patient tries to get out of bed. Fall precautions Palliative care consulted. Dietary consulted for recommendations for TPN Disposition: This patient has a very poor prognosis. The family wishes to try to save the leg despite multiple professional opinions on the necessity of an amputation. The family initially wished for the patient to go to [facility] where hyperbaric therapy is available in order to promote healing. They wished to be cared for by their personal box blank machine operator helper Dr. Ware; however, Dr. Ware has become unavailable. So the family decided to remain at [facility] and attempt healing via vascular surgery to improve circulation and wound debridement of damaged tissue. They were repeatedly warned by multiple medical care evaluation specialist of the risks associated with refusing a BKA and attempting to salvage the foot. The family verbalized understanding of the risks but still decide against a BKA at this time. <Benson Myrick Jr. - Last Filed: 03/29/17 13:01> Objective - Vital Signs/Intake and Output Vital Signs (last 24 hours): Temp Pulse Resp BP Pulse Ox 98.5 F 90 30 H 123/46 L 98 03/29/17 07:00 03/29/17 10:00 03/29/17 10:00 03/29/17 08:14 03/29/17 10:00 Intake and Output: 03/29/17 03/29/17 06:59 18:59 Intake Total Balance - Medications Medications: Current Medications Acetaminophen (Tylenol 325mg Tab) 650 mg PO Q6 PRN PRN Reason: Pain, moderate (4-7) Last Admin: 03/28/17 13:21 Dose: 650 mg Brimonidine Tartrate (Alphagan 0.2% Opht) 1 ml OU TID REPLACED BY [facility] Last Admin: 03/29/17 09:39 Dose: 1 drop Collagenase (Santyl) 0 gm TOP DAILY REPLACED BY [facility] Last Admin: 03/29/17 09:59 Dose: 1 applic Dextrose (Dextrose 50% Inj) 0 ml IV STAT PRN; Protocol PRN Reason: Hyglycemia Protocol Dextrose (Glutose 15) 0 gm PO ONCE PRN; Protocol PRN Reason: Hypoglycemia Protocol Epoetin Maxwell (Procrit) 10,000 unit IV TTS REPLACED BY [facility] Last Admin: 03/28/17 10:33 Dose: 10,000 unit Ergocalciferol (Drisdol 50,000 Intl Units Cap) 1 cap PO Q7D REPLACED BY [facility] Last Admin: 03/24/17 00:47 Dose: 1 cap Glucagon (Glucagen Diagnostic Kit) 0 mg IM STAT PRN; Protocol PRN Reason: Hypoglycemia Protocol Heparin Sodium (Porcine) (Heparin) 5,000 units SC Q12 [facility] Last Admin: 03/29/17 09:41 Dose: 5,000 units Vancomycin/Sodium Chloride (Vancomycin 1 Gm/Ns 200 Ml) 1 gm in 200 mls @ 133.333 mls/hr IVPB TTS REPLACED BY [facility] Last Admin: 03/28/17 13:26 Dose: 133.333 mls/hr Insulin Glargine (Lantus) 25 unit SC HS REPLACED BY [facility] Last Admin: 03/16/17 22:27 Dose: Not Given Insulin Human Regular (Novolin R) 0 unit SC ACHS [facility] PRN Reason: Protocol Last Admin: 03/29/17 12:20 Dose: 4 unit Latanoprost (Xalatan Opht) 0.02 ml OU HS REPLACED BY [facility] Last Admin: 03/28/17 21:32 Dose: 0.02 ml Lisinopril (Zestril) 20 mg PO DAILY REPLACED BY [facility] Last Admin: 03/29/17 10:03 Dose: 20 mg Pantoprazole Sodium (Protonix Ec Tab) 40 mg PO DAILY REPLACED BY [facility] Last Admin: 03/29/17 09:59 Dose: 40 mg Rosuvastatin Calcium (Crestor) 10 mg PO HS REPLACED BY [facility] Last Admin: 03/28/17 21:32 Dose: 10 mg Timolol Maleate (Timoptic 0.5% Ophth Soln) 1 drop OU BID REPLACED BY [facility] Last Admin: 03/29/17 09:38 Dose: 1 drop Vitamin B Complex/Vit C/Folic Acid (Nephro-Alonzo) 1 tab PO 0800 REPLACED BY [facility] Last Admin: 03/29/17 08:09 Dose: 1 tab - Labs Labs: 03/29/17 06:45 03/29/17 06:45 PT 12.3 SECONDS (9.7-12.2) H 02/18/17 05:30 INR 1.1 02/18/17 05:30 APTT 30 SECONDS (21-34) 02/18/17 05:30 Attending/Attestation - Attestation I have personally seen and examined this patient.: Yes I have fully participated in the care of the patient.: Yes I have reviewed all pertinent clinical information, including history, physical exam and plan: Yes Notes (Text): 03/29/17 13:01 Agree with resident note and plan of care
--- NOTE | 2017-03-15 11:51 | CP.PCM.PN ---
Subjective - Date & Time of Evaluation Date of Evaluation: 03/15/17 Time of Evaluation: 11:47 - Subjective Subjective: COVERING DR ARREOLA/JONES No new c/o, wants NGT removed No labs this am Objective - Vital Signs/Intake and Output Vital Signs (last 24 hours): Temp Pulse Resp BP Pulse Ox 98.3 F 86 20 136/70 96 03/15/17 07:30 03/15/17 07:30 03/15/17 07:30 03/15/17 07:30 03/15/17 07:30 - Medications Medications: Current Medications Acetaminophen (Tylenol 325mg Tab) 650 mg PO Q6 PRN PRN Reason: Pain, Mild (1-3) Last Admin: 03/11/17 17:49 Dose: 650 mg Amlodipine Besylate (Norvasc) 5 mg PO DAILY [facility] Last Admin: 03/15/17 10:25 Dose: 5 mg Brimonidine Tartrate (Alphagan 0.2% Opht) 1 ml OU TID [facility] Last Admin: 03/15/17 10:25 Dose: 1 drop Collagenase (Santyl) 0 gm TOP DAILY [facility] Last Admin: 03/14/17 10:00 Dose: Not Given Dextrose (Dextrose 50% Inj) 0 ml IV STAT PRN; Protocol PRN Reason: Hyglycemia Protocol Dextrose (Glutose 15) 0 gm PO ONCE PRN; Protocol PRN Reason: Hypoglycemia Protocol Epoetin Maxwell (Procrit) 10,000 unit IV TTS [facility] Last Admin: 03/14/17 11:21 Dose: 10,000 unit Glucagon (Glucagen Diagnostic Kit) 0 mg IM STAT PRN; Protocol PRN Reason: Hypoglycemia Protocol Heparin Sodium (Porcine) (Heparin) 5,000 units SC Q8 [facility] Last Admin: 03/15/17 05:56 Dose: 5,000 units Hydralazine HCl (Apresoline) 25 mg PO BID [facility] Last Admin: 03/15/17 10:25 Dose: 25 mg Hydromorphone HCl (Dilaudid) 0.5 mg IVP Q4H PRN PRN Reason: Pain, severe (8-10) Last Admin: 03/15/17 02:15 Dose: 0.5 mg Tigecycline 50 mg/ Sodium (Chloride) 100 mls @ 100 mls/hr IVPB Q12H [facility] Last Admin: 03/15/17 08:14 Dose: 100 mls/hr Fluconazole (Diflucan Iv 200 Mg/100 Ml Ns) 100 mls @ 100 mls/hr IVPB DAILY [facility] Last Admin: 03/15/17 10:25 Dose: 100 mls/hr Insulin Glargine (Lantus) 25 unit SC HS [facility] Last Admin: 03/14/17 22:19 Dose: Not Given Insulin Human Regular (Novolin R) 0 unit SC ACHS [facility] PRN Reason: Protocol Last Admin: 03/15/17 08:11 Dose: 8 unit Latanoprost (Xalatan Opht) 0.02 ml OU HS [facility] Last Admin: 03/14/17 22:18 Dose: 0.02 ml Losartan Potassium (Cozaar) 100 mg PO DAILY [facility] Last Admin: 03/15/17 10:25 Dose: 100 mg Pantoprazole Sodium (Protonix Inj) 40 mg IVP Q12H [facility] Last Admin: 03/15/17 04:20 Dose: 40 mg Rosuvastatin Calcium (Crestor) 10 mg PO HS [facility] Last Admin: 03/14/17 22:20 Dose: 10 mg Timolol Maleate (Timoptic [facility]) 1 drop OU BID [facility] Last Admin: 03/15/17 10:25 Dose: 1 drop - Labs Labs: 03/14/17 09:32 03/14/17 09:32 PT 12.3 SECONDS (9.7-12.2) H 02/18/17 05:30 INR 1.1 02/18/17 05:30 APTT 30 SECONDS (21-34) 02/18/17 05:30 - Constitutional Appears: No Acute Distress - Head Exam Additional comments: ngt intact - Respiratory Exam Respiratory Exam: NORMAL BREATHING PATTERN - Cardiovascular Exam Cardiovascular Exam: REGULAR RHYTHM - GI/Abdominal Exam GI & Abdominal Exam: Soft, Normal Bowel Sounds. absent: Guarding, Tenderness, Mass, Rebound Assessment and Plan (1) Sepsis Assessment & Plan: Abx as per medical team and ID Status: Acute (2) Dysphagia Assessment & Plan: Now getting NGT feedings. Reevaluate candidacy for PEG when clinically stable. Status: Acute (3) Hyponatremia Assessment & Plan: Repeat CMP in am Status: Acute
--- NOTE | 2017-03-15 14:43 | CP.PCM.PN ---
Subjective - Date & Time of Evaluation Date of Evaluation: 03/14/17 Time of Evaluation: 13:00 - Subjective Subjective: SEEN ON RENAL F/U HAD HER HD EARLIER .. TOLERATED WELL ON THE BED SIDE ALL PREVIOUS EMR REVIEWED Objective - Vital Signs/Intake and Output Vital Signs (last 24 hours): Temp Pulse Resp BP Pulse Ox 98.3 F 86 20 136/70 96 03/15/17 07:30 03/15/17 07:30 03/15/17 07:30 03/15/17 07:30 03/15/17 07:30 - Medications Medications: Current Medications Amlodipine Besylate (Norvasc) 5 mg PO DAILY [facility] Last Admin: 03/15/17 10:25 Dose: 5 mg Brimonidine Tartrate (Alphagan 0.2% Opht) 1 ml OU TID [facility] Last Admin: 03/15/17 13:48 Dose: 1 drop Collagenase (Santyl) 0 gm TOP DAILY [facility] Last Admin: 03/14/17 10:00 Dose: Not Given Dextrose (Dextrose 50% Inj) 0 ml IV STAT PRN; Protocol PRN Reason: Hyglycemia Protocol Dextrose (Glutose 15) 0 gm PO ONCE PRN; Protocol PRN Reason: Hypoglycemia Protocol Epoetin Maxwell (Procrit) 10,000 unit IV TTS [facility] Last Admin: 03/14/17 11:21 Dose: 10,000 unit Glucagon (Glucagen Diagnostic Kit) 0 mg IM STAT PRN; Protocol PRN Reason: Hypoglycemia Protocol Heparin Sodium (Porcine) (Heparin) 5,000 units SC Q8 [facility] Last Admin: 03/15/17 13:47 Dose: 5,000 units Hydralazine HCl (Apresoline) 25 mg PO BID [facility] Last Admin: 03/15/17 10:25 Dose: 25 mg Hydromorphone HCl (Dilaudid) 0.5 mg IVP Q4H PRN PRN Reason: Pain, severe (8-10) Last Admin: 03/15/17 02:15 Dose: 0.5 mg Tigecycline 50 mg/ Sodium (Chloride) 100 mls @ 100 mls/hr IVPB Q12H [facility] Last Admin: 03/15/17 08:14 Dose: 100 mls/hr Fluconazole (Diflucan Iv 200 Mg/100 Ml Ns) 100 mls @ 100 mls/hr IVPB DAILY [facility] Last Admin: 03/15/17 10:25 Dose: 100 mls/hr Insulin Glargine (Lantus) 25 unit SC HS [facility] Last Admin: 03/14/17 22:19 Dose: Not Given Insulin Human Regular (Novolin R) 0 unit SC ACHS [facility] PRN Reason: Protocol Last Admin: 03/15/17 11:53 Dose: 10 unit Latanoprost (Xalatan Opht) 0.02 ml OU HS [facility] Last Admin: 03/14/17 22:18 Dose: 0.02 ml Losartan Potassium (Cozaar) 100 mg PO DAILY [facility] Last Admin: 03/15/17 10:25 Dose: 100 mg Pantoprazole Sodium (Protonix Inj) 40 mg IVP Q12H [facility] Last Admin: 03/15/17 04:20 Dose: 40 mg Rosuvastatin Calcium (Crestor) 10 mg PO HS [facility] Last Admin: 03/14/17 22:20 Dose: 10 mg Timolol Maleate (Timoptic 0.5% Oph Soln) 1 drop OU BID [facility] Last Admin: 03/15/17 10:25 Dose: 1 drop - Labs Labs: 03/14/17 09:32 03/14/17 09:32 PT 12.3 SECONDS (9.7-12.2) H 02/18/17 05:30 INR 1.1 02/18/17 05:30 APTT 30 SECONDS (21-34) 02/18/17 05:30 Assessment and Plan - Assessment and Plan (Free Text) Assessment: ESRD ON HD T T S .. TO BE C/O ANEMIA OF CKD .. H/H STABLE MULTIPLE CO MORBIDITIES C/O CURRENT CARE C/O PRESENT MEDS
--- NOTE | 2017-03-15 15:12 | CP.PCM.PN ---
Subjective - Date & Time of Evaluation Date of Evaluation: 03/15/17 Time of Evaluation: 08:00 - Subjective Subjective: wbc remains elevated wound vac in place no new positive cultures will de-escalate rx poor prognosis [facility] need BKA Objective - Vital Signs/Intake and Output Vital Signs (last 24 hours): Temp Pulse Resp BP Pulse Ox 98.3 F 86 20 136/70 96 03/15/17 07:30 03/15/17 07:30 03/15/17 07:30 03/15/17 07:30 03/15/17 07:30 - Medications Medications: Current Medications Amlodipine Besylate (Norvasc) 5 mg PO DAILY [facility] Last Admin: 03/15/17 10:25 Dose: 5 mg Brimonidine Tartrate (Alphagan 0.2% Opht) 1 ml OU TID [facility] Last Admin: 03/15/17 13:48 Dose: 1 drop Collagenase (Santyl) 0 gm TOP DAILY [facility] Last Admin: 03/14/17 10:00 Dose: Not Given Dextrose (Dextrose 50% Inj) 0 ml IV STAT PRN; Protocol PRN Reason: Hyglycemia Protocol Dextrose (Glutose 15) 0 gm PO ONCE PRN; Protocol PRN Reason: Hypoglycemia Protocol Epoetin Maxwell (Procrit) 10,000 unit IV TTS [facility] Last Admin: 03/14/17 11:21 Dose: 10,000 unit Glucagon (Glucagen Diagnostic Kit) 0 mg IM STAT PRN; Protocol PRN Reason: Hypoglycemia Protocol Heparin Sodium (Porcine) (Heparin) 5,000 units SC Q8 [facility] Last Admin: 03/15/17 13:47 Dose: 5,000 units Hydromorphone HCl (Dilaudid) 0.5 mg IVP Q4H PRN PRN Reason: Pain, severe (8-10) Last Admin: 03/15/17 02:15 Dose: 0.5 mg Tigecycline 50 mg/ Sodium (Chloride) 100 mls @ 100 mls/hr IVPB Q12H [facility] Last Admin: 03/15/17 08:14 Dose: 100 mls/hr Fluconazole (Diflucan Iv 200 Mg/100 Ml Ns) 100 mls @ 100 mls/hr IVPB DAILY [facility] Last Admin: 03/15/17 10:25 Dose: 100 mls/hr Insulin Glargine (Lantus) 25 unit SC HS [facility] Last Admin: 03/14/17 22:19 Dose: Not Given Insulin Human Regular (Novolin R) 0 unit SC ACHS [facility] PRN Reason: Protocol Last Admin: 03/15/17 11:53 Dose: 10 unit Latanoprost (Xalatan Opht) 0.02 ml OU HS [facility] Last Admin: 03/14/17 22:18 Dose: 0.02 ml Losartan Potassium (Cozaar) 100 mg PO DAILY [facility] Last Admin: 03/15/17 10:25 Dose: 100 mg Pantoprazole Sodium (Protonix Inj) 40 mg IVP Q12H [facility] Last Admin: 03/15/17 04:20 Dose: 40 mg Rosuvastatin Calcium (Crestor) 10 mg PO HS [facility] Last Admin: 03/14/17 22:20 Dose: 10 mg Timolol Maleate (Timoptic 0.5% Oph Soln) 1 drop OU BID [facility] Last Admin: 03/15/17 10:25 Dose: 1 drop Vitamin B Complex/Vit C/Folic Acid (Nephro-Alonzo) 1 tab PO 0800 [facility] - Labs Labs: 03/14/17 09:32 03/14/17 09:32 PT 12.3 SECONDS (9.7-12.2) H 02/18/17 05:30 INR 1.1 02/18/17 05:30 APTT 30 SECONDS (21-34) 02/18/17 05:30 Assessment and Plan (1) Change in mental status Status: Acute (2) End stage renal disease on dialysis Status: Acute (3) Heel ulcer Status: Acute (4) IDDM (insulin dependent diabetes mellitus) Status: Chronic
[2017-03-15] MEDS ORDERED: Vancomycin 1 gm/NS 200 ml 1 GM/200 ML BAG IVPB ONE (17:00)
[2017-03-15] MEDS: metroNIDAZOLE IV 500 mg/100 ml 500 MG/100 ML BAG IVPB SCH (22:06)
[2017-03-15] MEDS: (Lantus) Insulin Glargine, Recombinant SC SCH (22:07)
[2017-03-15] MEDS: Latanoprost 2.5 ml Opht Soln OU SCH (22:17)
[2017-03-16] MEDS ORDERED: Dextrose 50% SYRINGE Inj (50 ml) IV STA (04:07)
[2017-03-16] MEDS: HYDROmorphone 0.5 mg/0.5 ml ISec IVP PRN ×3 (05:25→16:37)
[2017-03-16] MEDS: metroNIDAZOLE IV 500 mg/100 ml 500 MG/100 ML BAG IVPB SCH ×3 (06:21→22:20)
[2017-03-16] MEDS ORDERED: Dextrose 50% SYRINGE Inj (50 ml) ONE ×2 (07:34→12:21)
[2017-03-16] MEDS: (Novolin R) Insulin Human Regular 100 units/ml vial SC SCH ×3 (08:28→17:33)
[2017-03-16] MEDS: Vancomycin 1 gm/NS 200 ml 1 GM/200 ML BAG IVPB SCH (09:15)
[2017-03-16] MEDS: Fluconazole IV 200mg/100 ml NS 100 ML IVPB SCH (09:16)
[2017-03-16] MEDS: Multivitamin Vitamin B Complex (Nephro-Vite) Tab PO SCH (09:17)
--- NOTE | 2017-03-16 09:17 | CP.PCM.PN ---
<Trevor Elkins - Last Filed: 03/16/17 16:36> Subjective - Date & Time of Evaluation Date of Evaluation: 03/16/17 Time of Evaluation: 09:14 - Subjective Subjective: Medicine Progress Note for Dr. Myrick HPI: Patient seen and examined at bedside. Moans when leg is manipulated. Besides that she looks comfortable. Does not respond appropriately to questions. Family at bedside. Objective - Vital Signs/Intake and Output Vital Signs (last 24 hours): Temp Pulse Resp BP Pulse Ox 99.8 F H 68 20 104/49 L 94 L 03/16/17 00:00 03/16/17 00:00 03/16/17 00:00 03/16/17 00:00 03/16/17 00:00 Intake and Output: 03/16/17 03/16/17 06:59 18:59 Intake Total 850 Balance 850 - Medications Medications: Current Medications Amlodipine Besylate (Norvasc) 5 mg PO DAILY [facility] Last Admin: 03/15/17 10:25 Dose: 5 mg Brimonidine Tartrate (Alphagan 0.2% Opht) 1 ml OU TID [facility] Last Admin: 03/15/17 18:00 Dose: 1 drop Collagenase (Santyl) 0 gm TOP DAILY [facility] Last Admin: 03/14/17 10:00 Dose: Not Given Dextrose (Dextrose 50% Inj) 0 ml IV STAT PRN; Protocol PRN Reason: Hyglycemia Protocol Dextrose (Glutose 15) 0 gm PO ONCE PRN; Protocol PRN Reason: Hypoglycemia Protocol Epoetin Maxwell (Procrit) 10,000 unit IV TTS [facility] Last Admin: 03/14/17 11:21 Dose: 10,000 unit Glucagon (Glucagen Diagnostic Kit) 0 mg IM STAT PRN; Protocol PRN Reason: Hypoglycemia Protocol Heparin Sodium (Porcine) (Heparin) 5,000 units SC Q8 [facility] Last Admin: 03/16/17 06:17 Dose: 5,000 units Hydromorphone HCl (Dilaudid) 0.5 mg IVP Q4H PRN PRN Reason: Pain, severe (8-10) Last Admin: 03/16/17 05:25 Dose: 0.5 mg Fluconazole (Diflucan Iv 200 Mg/100 Ml Ns) 100 mls @ 100 mls/hr IVPB DAILY [facility] Last Admin: 10/22/17 10:25 Dose: 100 mls/hr Vancomycin/Sodium Chloride (Vancomycin 1 Gm/Ns 200 Ml) 1 gm in 200 mls @ 166.7 mls/hr IVPB MWF [facility] Stop: 03/21/17 09:01 Metronidazole (Flagyl) 500 mg in 100 mls @ 100 mls/hr IVPB Q8 [facility] Last Admin: 03/16/17 06:21 Dose: 100 mls/hr Insulin Glargine (Lantus) 25 unit SC HS [facility] Last Admin: 03/15/17 22:07 Dose: 25 unit Insulin Human Regular (Novolin R) 0 unit SC ACHS [facility] PRN Reason: Protocol Last Admin: 03/16/17 08:28 Dose: Not Given Latanoprost (Xalatan Opht) 0.02 ml OU HS [facility] Last Admin: 03/15/17 22:17 Dose: 0.02 ml Losartan Potassium (Cozaar) 100 mg PO DAILY [facility] Last Admin: 03/15/17 10:25 Dose: 100 mg Pantoprazole Sodium (Protonix Inj) 40 mg IVP Q12H [facility] Last Admin: 03/16/17 04:26 Dose: 40 mg Rosuvastatin Calcium (Crestor) 10 mg PO HS [facility] Last Admin: 03/15/17 22:16 Dose: 10 mg Timolol Maleate (Timoptic 0.5% [facility]) 1 drop OU BID [facility] Last Admin: 03/15/17 19:34 Dose: 1 drop Vitamin B Complex/Vit C/Folic Acid (Nephro-Alonzo) 1 tab PO 0800 [facility] - Labs Labs: 03/14/17 09:32 03/14/17 09:32 PT 12.3 SECONDS (9.7-12.2) H 02/18/17 05:30 INR 1.1 02/18/17 05:30 APTT 30 SECONDS (21-34) 02/18/17 05:30 - Constitutional Appears: Chronically Ill - Head Exam Head Exam: ATRAUMATIC, NORMAL INSPECTION, NORMOCEPHALIC - Eye Exam Eye Exam: EOMI - ENT Exam Additional comments: NGT - Respiratory Exam Respiratory Exam: Clear to Ausculation Bilateral, NORMAL BREATHING PATTERN - Cardiovascular Exam Cardiovascular Exam: REGULAR RHYTHM - GI/Abdominal Exam GI & Abdominal Exam: Soft, Normal Bowel Sounds. absent: Distended, Tenderness - Extremities Exam Additional comments: necrotic skin on plantar aspect of L. foot with healthy grnaulatyion tissue on the periphery. 95% tissue. dressing changed with 4x4s, dry, clean and intact - Neurological Exam Neurological Exam: Awake - Skin Skin Exam: Dry, Normal Color, Warm Assessment and Plan - Assessment and Plan (Free Text) Assessment: Non-Healing Left Heel Ulcer * Podiatry (Bennie) * recommended Left BKA * ID (Mangia) * Vascular (Sausal) * recommended Left BKA * Santyl BID * Flagyl 500mg IV Q8 * Vanco 1g IV MWF * Dilaudid 0.5 mg IV Q4 PRN * Low ext arterial duplex (02/04/17) * occlusion R post tib artery, 50-75% stenosis right mid popliteal & proximal anterior tib arteries * occlusion of left post tib artery, >75% stenosis left proximal ant tibial artery, 50-75% stenosis left distal SFA & proximal popliteal a. * Abdominal Angiography 02/19/17 * Severe bilateral lower extremity arterial runoff with 1 vessel likely remaining patent at the right. None is continuously patent at the left lower extremity [id number]. Widely patent abdominal aorta and iliac arterial system with moderate right and [id number] left femoral arterial disease. Severe bilateral popliteal artery arterial disease. Left Pleural Effusion * Pulm (Alvaro) * CXR 03/11 - moderate left pleural effusion. C. Diff * Repeat C diff and stool culture on 02/28-negative Altered Mental Status * Neuro (Carla) * likely 2/2 to hypoglycemia * 03/16: Patient is still moaning and mumbling, with some speech. She has NGT in place. Tolerating feeds. * CT Head negative for Acute Infarction * Monitor Accuchecks qACHS and Q4H End Stage Renal Disease on Hemodialysis * Nephro (Hajal) * TTS Decreased oral intake * Tube feeds, Bolus, 9pm-9am * GI states PEG when more stable Hypertension * Norvasc 5 mg PO daily * Losartan 100 mg PO daily Anemia of Chronic Disease * Likely secondary to ESRD * IV ferlicet 125 * Procrit 10,000 units IV Diabetes * D50 as needed. * Lantus 25 units * Accuchecks * Hgb A1C 8.9 Prophylactic Measures * SCDs * Heparin 5000 units SC Q8H * 1:1 observation due to agitation. Patient tries to get out of bed. * Fall precautions * Palliative care consulted. Disposition: This patient has a very poor prognosis. The family wishes to try to save the leg despite multiple professional opinions on the necessity of an amputation. The family initially wished for the patient to go to [facility] where hyperbaric therapy is available in order to promote healing. They wished to be cared for by their personal public information specialist Dr. Ware; however, Dr. Ware has become unavailable. So the family decided to remain at [facility] and attempt healing via vascular surgery to improve circulation and wound debridement of damaged tissue. They were repeatedly warned by multiple medical safety director of the risks associated with refusing a BKA and attempting to salvage the foot. The family verbalized understanding of the risks but still decide against a BKA at this time. <Benson Myrick Jr. - Last Filed: 03/29/17 13:03> Objective - Vital Signs/Intake and Output Vital Signs (last 24 hours): Temp Pulse Resp BP Pulse Ox 98.5 F 90 30 H 123/46 L 98 03/29/17 07:00 03/29/17 10:00 03/29/17 10:00 03/29/17 08:14 03/29/17 10:00 Intake and Output: 03/29/17 03/29/17 06:59 18:59 Intake Total Balance - Medications Medications: Current Medications Acetaminophen (Tylenol 325mg Tab) 650 mg PO Q6 PRN PRN Reason: Pain, moderate (4-7) Last Admin: 03/28/17 13:21 Dose: 650 mg Brimonidine Tartrate (Alphagan 0.2% Opht) 1 ml OU TID [facility] Last Admin: 03/29/17 09:39 Dose: 1 drop Collagenase (Santyl) 0 gm TOP DAILY [facility] Last Admin: 03/29/17 09:59 Dose: 1 applic Dextrose (Dextrose 50% Inj) 0 ml IV STAT PRN; Protocol PRN Reason: Hyglycemia Protocol Dextrose (Glutose 15) 0 gm PO ONCE PRN; Protocol PRN Reason: Hypoglycemia Protocol Epoetin Maxwell (Procrit) 10,000 unit IV TTS [facility] Last Admin: 03/28/17 10:33 Dose: 10,000 unit Ergocalciferol (Drisdol 50,000 Intl Units Cap) 1 cap PO Q7D [facility] Last Admin: 03/24/17 00:47 Dose: 1 cap Glucagon (Glucagen Diagnostic Kit) 0 mg IM STAT PRN; Protocol PRN Reason: Hypoglycemia Protocol Heparin Sodium (Porcine) (Heparin) 5,000 units SC Q12 [facility] Last Admin: 03/29/17 09:41 Dose: 5,000 units Vancomycin/Sodium Chloride (Vancomycin 1 Gm/Ns 200 Ml) 1 gm in 200 mls @ 133.333 mls/hr IVPB TTS [facility] Last Admin: 03/28/17 13:26 Dose: 133.333 mls/hr Insulin Glargine (Lantus) 25 unit SC HS [facility] Last Admin: 03/16/17 22:27 Dose: Not Given Insulin Human Regular (Novolin R) 0 unit SC ACHS [facility] PRN Reason: Protocol Last Admin: 03/29/17 12:20 Dose: 4 unit Latanoprost (Xalatan Opht) 0.02 ml OU HS [facility] Last Admin: 03/28/17 21:32 Dose: 0.02 ml Lisinopril (Zestril) 20 mg PO DAILY [facility] Last Admin: 03/29/17 10:03 Dose: 20 mg Pantoprazole Sodium (Protonix Ec Tab) 40 mg PO DAILY [facility] Last Admin: 03/29/17 09:59 Dose: 40 mg Rosuvastatin Calcium (Crestor) 10 mg PO HS [facility] Last Admin: 03/28/17 21:32 Dose: 10 mg Timolol Maleate (Timoptic 0.5% Oph Soln) 1 drop OU BID [facility] Last Admin: 03/29/17 09:38 Dose: 1 drop Vitamin B Complex/Vit C/Folic Acid (Nephro-Alonzo) 1 tab PO 0800 [facility] Last Admin: 03/29/17 08:09 Dose: 1 tab - Labs Labs: 03/29/17 06:45 03/29/17 06:45 PT 12.3 SECONDS (9.7-12.2) H 02/18/17 05:30 INR 1.1 02/18/17 05:30 APTT 30 SECONDS (21-34) 02/18/17 05:30 Attending/Attestation - Attestation I have personally seen and examined this patient.: Yes I have fully participated in the care of the patient.: Yes I have reviewed all pertinent clinical information, including history, physical exam and plan: Yes Notes (Text): 03/29/17 13:03 Agree with resident note and plan of care
[2017-03-16] MEDS: Brimonidine 0.2% Opth Sol (5ml) OU SCH ×3 (09:19→17:32)
[2017-03-16] MEDS: Collagenase 250 Units/gm Ointment(30 gm) TOP SCH (09:32)
--- NOTE | 2017-03-16 09:35 | CP.PCM.PN ---
Objective - Vital Signs/Intake and Output Vital Signs (last 24 hours): Temp Pulse Resp BP Pulse Ox 97.6 F 72 18 113/62 95 03/16/17 08:40 03/16/17 08:40 03/16/17 08:40 03/16/17 08:40 03/16/17 08:40 Intake and Output: 03/16/17 03/16/17 06:59 18:59 Intake Total 850 Balance 850 - Medications Medications: Current Medications Amlodipine Besylate (Norvasc) 5 mg PO DAILY [facility] Last Admin: 03/16/17 09:17 Dose: 5 mg Brimonidine Tartrate (Alphagan 0.2% Opht) 1 ml OU TID [facility] Last Admin: 03/16/17 09:19 Dose: 1 drop Collagenase (Santyl) 0 gm TOP DAILY [facility] Last Admin: 03/16/17 09:32 Dose: Not Given Dextrose (Dextrose 50% Inj) 0 ml IV STAT PRN; Protocol PRN Reason: Hyglycemia Protocol Dextrose (Glutose 15) 0 gm PO ONCE PRN; Protocol PRN Reason: Hypoglycemia Protocol Epoetin Maxwell (Procrit) 10,000 unit IV TTS [facility] Last Admin: 03/14/17 11:21 Dose: 10,000 unit Glucagon (Glucagen Diagnostic Kit) 0 mg IM STAT PRN; Protocol PRN Reason: Hypoglycemia Protocol Heparin Sodium (Porcine) (Heparin) 5,000 units SC Q8 [facility] Last Admin: 03/16/17 06:17 Dose: 5,000 units Hydromorphone HCl (Dilaudid) 0.5 mg IVP Q4H PRN PRN Reason: Pain, severe (8-10) Last Admin: 03/16/17 05:25 Dose: 0.5 mg Fluconazole (Diflucan Iv 200 Mg/100 Ml Ns) 100 mls @ 100 mls/hr IVPB DAILY [facility] Last Admin: 03/16/17 09:16 Dose: 100 mls/hr Vancomycin/Sodium Chloride (Vancomycin 1 Gm/Ns 200 Ml) 1 gm in 200 mls @ 166.7 mls/hr IVPB MWF [facility] Stop: 03/21/17 09:01 Last Admin: 03/16/17 09:15 Dose: 166.7 mls/hr Metronidazole (Flagyl) 500 mg in 100 mls @ 100 mls/hr IVPB Q8 [facility] Last Admin: 03/16/17 06:21 Dose: 100 mls/hr Insulin Glargine (Lantus) 25 unit SC HS [facility] Last Admin: 03/15/17 22:07 Dose: 25 unit Insulin Human Regular (Novolin R) 0 unit SC ACHS [facility] PRN Reason: Protocol Last Admin: 03/16/17 08:28 Dose: Not Given Latanoprost (Xalatan Opht) 0.02 ml OU HS [facility] Last Admin: 03/15/17 22:17 Dose: 0.02 ml Losartan Potassium (Cozaar) 100 mg PO DAILY [facility] Last Admin: 03/16/17 09:17 Dose: 100 mg Pantoprazole Sodium (Protonix Inj) 40 mg IVP Q12H [facility] Last Admin: 03/16/17 04:26 Dose: 40 mg Rosuvastatin Calcium (Crestor) 10 mg PO HS [facility] Last Admin: 03/15/17 22:16 Dose: 10 mg Timolol Maleate (Timoptic 0.5% Oph Soln) 1 drop OU BID [facility] Last Admin: 03/16/17 09:19 Dose: 1 drop Vitamin B Complex/Vit C/Folic Acid (Nephro-Alonzo) 1 tab PO 0800 [facility] Last Admin: 03/16/17 09:17 Dose: 1 tab - Labs Labs: 03/14/17 09:32 03/14/17 09:32 PT 12.3 SECONDS (9.7-12.2) H 02/18/17 05:30 INR 1.1 02/18/17 05:30 APTT 30 SECONDS (21-34) 02/18/17 05:30
--- NOTE | 2017-03-16 11:55 | CP.PCM.PN ---
Subjective - Date & Time of Evaluation Date of Evaluation: 03/16/17 Time of Evaluation: 09:00 - Subjective Subjective: Pulmonology Note for Dr. John's Service Patient was seen and examined at bedside. Patient reports her breathing is fine. Denied fever, chills, headache, chest pain, SOB, cough abdominal pain, n/v /d/c, or urinary symptoms. Objective - Vital Signs/Intake and Output Vital Signs (last 24 hours): Temp Pulse Resp BP Pulse Ox 97.6 F 72 18 113/62 95 03/16/17 08:40 03/16/17 08:40 03/16/17 08:40 03/16/17 08:40 03/16/17 08:40 Intake and Output: 03/16/17 03/16/17 06:59 18:59 Intake Total 850 Balance 850 - Medications Medications: Current Medications Amlodipine Besylate (Norvasc) 5 mg PO DAILY [facility] Last Admin: 03/16/17 09:17 Dose: 5 mg Brimonidine Tartrate (Alphagan 0.2% Opht) 1 ml OU TID [facility] Last Admin: 03/16/17 09:19 Dose: 1 drop Collagenase (Santyl) 0 gm TOP DAILY [facility] Last Admin: 03/16/17 09:32 Dose: Not Given Dextrose (Dextrose 50% Inj) 0 ml IV STAT PRN; Protocol PRN Reason: Hyglycemia Protocol Dextrose (Glutose 15) 0 gm PO ONCE PRN; Protocol PRN Reason: Hypoglycemia Protocol Epoetin Maxwell (Procrit) 10,000 unit IV TTS [facility] Last Admin: 03/14/17 11:21 Dose: 10,000 unit Glucagon (Glucagen Diagnostic Kit) 0 mg IM STAT PRN; Protocol PRN Reason: Hypoglycemia Protocol Heparin Sodium (Porcine) (Heparin) 5,000 units SC Q8 [facility] Last Admin: 03/16/17 06:17 Dose: 5,000 units Hydromorphone HCl (Dilaudid) 0.5 mg IVP Q4H PRN PRN Reason: Pain, severe (8-10) Last Admin: 03/16/17 11:45 Dose: 0.5 mg Fluconazole (Diflucan Iv 200 Mg/100 Ml Ns) 100 mls @ 100 mls/hr IVPB DAILY [facility] Last Admin: 03/16/17 09:16 Dose: 100 mls/hr Vancomycin/Sodium Chloride (Vancomycin 1 Gm/Ns 200 Ml) 1 gm in 200 mls @ 166.7 mls/hr IVPB MWF [facility] Stop: 03/21/17 09:01 Last Admin: 03/16/17 09:15 Dose: 166.7 mls/hr Metronidazole (Flagyl) 500 mg in 100 mls @ 100 mls/hr IVPB Q8 [facility] Last Admin: 03/16/17 06:21 Dose: 100 mls/hr Insulin Glargine (Lantus) 25 unit SC [facility] Last Admin: 03/15/17 22:07 Dose: 25 unit Insulin Human Regular (Novolin R) 0 unit SC ACHS [facility] PRN Reason: Protocol Last Admin: 03/16/17 08:28 Dose: Not Given Latanoprost (Xalatan Opht) 0.02 ml OU HS [facility] Last Admin: 03/15/17 22:17 Dose: 0.02 ml Losartan Potassium (Cozaar) 100 mg PO DAILY [facility] Last Admin: 03/16/17 09:17 Dose: 100 mg Pantoprazole Sodium (Protonix Inj) 40 mg IVP Q12H [facility] Last Admin: 03/16/17 04:26 Dose: 40 mg Rosuvastatin Calcium (Crestor) 10 mg PO HS [facility] Last Admin: 03/15/17 22:16 Dose: 10 mg Timolol Maleate (Timoptic 0.5% Oph Soln) 1 drop OU BID [facility] Last Admin: 03/16/17 09:19 Dose: 1 drop Vitamin B Complex/Vit C/Folic Acid (Nephro-Alonzo) 1 tab PO 0800 [facility] Last Admin: 03/16/17 09:17 Dose: 1 tab - Labs Labs: 03/14/17 09:32 03/14/17 09:32 PT 12.3 SECONDS (9.7-12.2) H 02/18/17 05:30 INR 1.1 02/18/17 05:30 APTT 30 SECONDS (21-34) 02/18/17 05:30 - Additional Findings Additional findings: - Constitutional Appears: No Acute Distress - Head Exam Head Exam: NORMAL INSPECTION, NORMOCEPHALIC - Eye Exam Eye Exam: EOMI, Normal appearance - ENT Exam ENT Exam: Mucous Membranes Moist Additional comments: +NGT - Neck Exam Neck Exam: Full ROM, Normal Inspection - Respiratory Exam Respiratory Exam: Decreased Breath Sounds - Cardiovascular Exam Cardiovascular Exam: REGULAR RHYTHM, +S1, +S2 - GI/Abdominal Exam GI & Abdominal Exam: Soft. absent: Distended, Tenderness - Extremities Exam Extremities Exam: Chronic venous stasis changes bilaterally in the legs Left foot ulcer with 10x5 cm eschar spanning lateral plantar surface s/p debridement with wound vac in place for left foot wound. absent: Pedal Edema - Neurological Exam Neurological Exam: Alert, Awake. absent: Oriented x3 - Psychiatric Exam Psychiatric exam: Flat Affect - Skin Skin Exam: Dry, Pallor, Warm Assessment and Plan - Assessment and Plan (Free Text) Plan: Chronic Pleural Effusion Thoracentesis 03/02/17 Pleural fluid consistent with transudate secondary to CHF/end-stage renal disease Continue hemodialysis Non-Healing Left Heel Ulcer End stage renal disease on dialysis Change in mental status Clostridium difficile colitis Pulmonary will sign off of this patient. Please re-consult if necessary. Teri Mishra Dr., PGY-1
[2017-03-16] MEDS ORDERED: Dextrose 50% SYRINGE Inj (50 ml) IV ONE (12:30)
--- NOTE | 2017-03-16 15:49 | CP.PCM.PN ---
Subjective - Date & Time of Evaluation Date of Evaluation: 03/16/17 Time of Evaluation: 15:46 - Subjective Subjective: CC: Follow up Poor PO intake Lethargic, arousable No reported diarrhea Tolerating NG feeds Still with significant leukocytosis and electrolyte abnormalities. per RN lads will be redrawn tomorrow at dialysis Objective - Vital Signs/Intake and Output Vital Signs (last 24 hours): Temp Pulse Resp BP Pulse Ox 97.6 F 72 18 113/62 95 03/16/17 08:40 03/16/17 08:40 03/16/17 08:40 03/16/17 08:40 03/16/17 08:40 Intake and Output: 03/16/17 03/16/17 06:59 18:59 Intake Total 850 150 Balance 850 150 - Medications Medications: Current Medications Amlodipine Besylate (Norvasc) 5 mg PO DAILY [facility] Last Admin: 03/16/17 09:17 Dose: 5 mg Brimonidine Tartrate (Alphagan 0.2% Opht) 1 ml OU TID [facility] Last Admin: 03/16/17 13:48 Dose: 1 drop Collagenase (Santyl) 0 gm TOP DAILY [facility] Last Admin: 03/16/17 09:32 Dose: Not Given Dextrose (Dextrose 50% Inj) 0 ml IV STAT PRN; Protocol PRN Reason: Hyglycemia Protocol Dextrose (Glutose 15) 0 gm PO ONCE PRN; Protocol PRN Reason: Hypoglycemia Protocol Epoetin Maxwell (Procrit) 10,000 unit IV TTS [facility] Last Admin: 03/14/17 11:21 Dose: 10,000 unit Glucagon (Glucagen Diagnostic Kit) 0 mg IM STAT PRN; Protocol PRN Reason: Hypoglycemia Protocol Heparin Sodium (Porcine) (Heparin) 5,000 units SC Q8 [facility] Last Admin: 03/16/17 13:41 Dose: 5,000 units Hydromorphone HCl (Dilaudid) 0.5 mg IVP Q4H PRN PRN Reason: Pain, severe (8-10) Last Admin: 03/16/17 11:45 Dose: 0.5 mg Fluconazole (Diflucan Iv 200 Mg/100 Ml Ns) 100 mls @ 100 mls/hr IVPB DAILY [facility] Last Admin: 03/16/17 09:16 Dose: 100 mls/hr Vancomycin/Sodium Chloride (Vancomycin 1 Gm/Ns 200 Ml) 1 gm in 200 mls @ 166.7 mls/hr IVPB MWF [facility] Stop: 03/21/17 09:01 Last Admin: 03/16/17 09:15 Dose: 166.7 mls/hr Metronidazole (Flagyl) 500 mg in 100 mls @ 100 mls/hr IVPB Q8 [facility] Last Admin: 03/16/17 13:41 Dose: 100 mls/hr Insulin Glargine (Lantus) 25 unit SC HS [facility] Last Admin: 03/15/17 22:07 Dose: 25 unit Insulin Human Regular (Novolin R) 0 unit SC ACHS [facility] PRN Reason: Protocol Last Admin: 03/16/17 12:18 Dose: Not Given Latanoprost (Xalatan Opht) 0.02 ml OU HS [facility] Last Admin: 03/15/17 22:17 Dose: 0.02 ml Losartan Potassium (Cozaar) 100 mg PO DAILY [facility] Last Admin: 03/16/17 09:17 Dose: 100 mg Pantoprazole Sodium (Protonix Inj) 40 mg IVP Q12H [facility] Last Admin: 03/16/17 04:26 Dose: 40 mg Rosuvastatin Calcium (Crestor) 10 mg PO HS [facility] Last Admin: 03/15/17 22:16 Dose: 10 mg Timolol Maleate (Timoptic 0.5% [facility]) 1 drop OU BID [facility] Last Admin: 03/16/17 09:19 Dose: 1 drop Vitamin B Complex/Vit C/Folic Acid (Nephro-Alonzo) 1 tab PO 0800 [facility] Last Admin: 03/16/17 09:17 Dose: 1 tab - Labs Labs: 03/14/17 09:32 03/14/17 09:32 PT 12.3 SECONDS (9.7-12.2) H 02/18/17 05:30 INR 1.1 02/18/17 05:30 APTT 30 SECONDS (21-34) 02/18/17 05:30 - Constitutional Appears: Chronically Ill - Head Exam Head Exam: NORMOCEPHALIC - Respiratory Exam Respiratory Exam: NORMAL BREATHING PATTERN - Cardiovascular Exam Cardiovascular Exam: REGULAR RHYTHM - GI/Abdominal Exam GI & Abdominal Exam: Soft. absent: Distended, Tenderness Assessment and Plan (1) Clostridium difficile colitis Assessment & Plan: Resolved Followed by ID Status: Acute (2) Change in mental status Status: Acute (3) End stage renal disease on dialysis Status: Acute (4) Heel ulcer Status: Acute (5) IDDM (insulin dependent diabetes mellitus) Status: Chronic (6) Dysphagia Assessment & Plan: Dependent on NG feeds PEG not advised with this degree of leukocytosis and electrolyte abnormalities Status: Acute (7) PUD (peptic ulcer disease) Assessment & Plan: Stable Status: Acute
--- NOTE | 2017-03-16 17:17 | CP.PCM.PN ---
Subjective - Date & Time of Evaluation Date of Evaluation: 03/16/17 Time of Evaluation: 14:00 - Subjective Subjective: SEEN ON RENAL F/U ON THE BED SIDW ALL PREVIOUS EMR REVIEWED ON HD TTS Objective - Vital Signs/Intake and Output Vital Signs (last 24 hours): Temp Pulse Resp BP Pulse Ox 98.8 F 71 20 145/61 95 03/16/17 16:21 03/16/17 16:21 03/16/17 16:21 03/16/17 16:21 03/16/17 16:21 Intake and Output: 03/16/17 03/16/17 06:59 18:59 Intake Total 850 150 Balance 850 150 - Medications Medications: Current Medications Amlodipine Besylate (Norvasc) 5 mg PO DAILY [facility] Last Admin: 03/16/17 09:17 Dose: 5 mg Brimonidine Tartrate (Alphagan 0.2% Opht) 1 ml OU TID [facility] Last Admin: 03/16/17 13:48 Dose: 1 drop Collagenase (Santyl) 0 gm TOP DAILY [facility] Last Admin: 03/16/17 09:32 Dose: Not Given Dextrose (Dextrose 50% Inj) 0 ml IV STAT PRN; Protocol PRN Reason: Hyglycemia Protocol Dextrose (Glutose 15) 0 gm PO ONCE PRN; Protocol PRN Reason: Hypoglycemia Protocol Epoetin Maxwell (Procrit) 10,000 unit IV TTS [facility] Last Admin: 03/14/17 11:21 Dose: 10,000 unit Glucagon (Glucagen Diagnostic Kit) 0 mg IM STAT PRN; Protocol PRN Reason: Hypoglycemia Protocol Heparin Sodium (Porcine) (Heparin) 5,000 units SC Q8 [facility] Last Admin: 03/16/17 13:41 Dose: 5,000 units Hydromorphone HCl (Dilaudid) 0.5 mg IVP Q4H PRN PRN Reason: Pain, severe (8-10) Last Admin: 03/16/17 16:37 Dose: 0.5 mg Fluconazole (Diflucan Iv 200 Mg/100 Ml Ns) 100 mls @ 100 mls/hr IVPB DAILY [facility] Last Admin: 03/16/17 09:16 Dose: 100 mls/hr Vancomycin/Sodium Chloride (Vancomycin 1 Gm/Ns 200 Ml) 1 gm in 200 mls @ 166.7 mls/hr IVPB [facility] Stop: 03/21/17 09:01 Last Admin: 03/16/17 09:15 Dose: 166.7 mls/hr Metronidazole (Flagyl) 500 mg in 100 mls @ 100 mls/hr IVPB Q8 [facility] Last Admin: 03/16/17 13:41 Dose: 100 mls/hr Insulin Glargine (Lantus) 25 unit SC HS [facility] Last Admin: 03/15/17 22:07 Dose: 25 unit Insulin Human Regular (Novolin R) 0 unit SC ACHS [facility] PRN Reason: Protocol Last Admin: 03/16/17 12:18 Dose: Not Given Latanoprost (Xalatan Opht) 0.02 ml OU HS [facility] Last Admin: 03/15/17 22:17 Dose: 0.02 ml Losartan Potassium (Cozaar) 100 mg PO DAILY [facility] Last Admin: 03/16/17 09:17 Dose: 100 mg Pantoprazole Sodium (Protonix Inj) 40 mg IVP Q12H [facility] Last Admin: 03/16/17 04:26 Dose: 40 mg Rosuvastatin Calcium (Crestor) 10 mg PO HS [facility] Last Admin: 03/15/17 22:16 Dose: 10 mg Timolol Maleate (Timoptic 0.5% Oph Soln) 1 drop OU BID [facility] Last Admin: 03/16/17 09:19 Dose: 1 drop Vitamin B Complex/Vit C/Folic Acid (Nephro-Alonzo) 1 tab PO 0800 [facility] Last Admin: 03/16/17 09:17 Dose: 1 tab - Labs Labs: 03/14/17 09:32 03/14/17 09:32 PT 12.3 SECONDS (9.7-12.2) H 02/18/17 05:30 INR 1.1 02/18/17 05:30 APTT 30 SECONDS (21-34) 02/18/17 05:30 Assessment and Plan - Assessment and Plan (Free Text) Assessment: ESRD ON HD TTS .. TO BE C/O ANEMIA OF CKD .. H/H STABLE MULTIPLE CO MORBIDITIES C/O CURRENT CARE C/O PRESENT ,EDS
[2017-03-16] MEDS: Latanoprost 2.5 ml Opht Soln OU SCH (22:24)
[2017-03-16] MEDS: (Lantus) Insulin Glargine, Recombinant SC SCH (22:27)
[2017-03-17] MEDS: metroNIDAZOLE IV 500 mg/100 ml 500 MG/100 ML BAG IVPB SCH ×3 (05:47→22:30)
[2017-03-17] MEDS: (Novolin R) Insulin Human Regular 100 units/ml vial SC SCH ×5 (08:27→22:48)
[2017-03-17 10:23] LABS: BASO % 0.2 % (0.0-2.0); EOS % 0.1 % (0.0-4.0); LYMPH # 0.6 K/uL (1.0-4.3); LYMPH % 3.1 % (20.0-40.0); MEAN CORPUSCULAR HEMOGLOBIN 29.3 pg (27.0-31.0); MEAN PLATELET VOLUME 10.3 fL (7.2-11.7); MONO # 0.5 K/uL (0.0-0.8); MONO % 2.5 % (0.0-10.0); PLATELET COUNT 370 K/uL (130-400)
[2017-03-17 10:24] LABS: MEAN CELL VOLUME 97.4 fL (81.0-99.0)
[2017-03-17 10:27] LABS: ALB/GLOB RATIO 0.7 (1.0-2.1); BILIRUBIN,TOTAL 0.5 mg/dL (0.2-1.3); TOTAL PROTEIN 5.1 g/dL (6.3-8.3)
[2017-03-17 10:34] LABS: CALCIUM 7.2 mg/dl (8.6-10.4)
[2017-03-17 10:35] LABS: POTASSIUM 6.3 mmol/L (3.6-5.2)
[2017-03-17] MEDS: Epoetin Alfa 10,000 unit/ml Dialysis IV SCH (10:58)
[2017-03-17 11:06] LABS: NEUTROPHIL 94 % (50-75); TOTAL CELLS COUNTED 100
[2017-03-17] MEDS: Brimonidine 0.2% Opth Sol (5ml) OU SCH ×3 (11:27→17:47)
[2017-03-17] MEDS: Multivitamin Vitamin B Complex (Nephro-Vite) Tab PO SCH (11:28)
[2017-03-17] MEDS: Collagenase 250 Units/gm Ointment(30 gm) TOP SCH (11:29)
--- NOTE | 2017-03-17 11:59 | CP.PCM.PN ---
Subjective - Date & Time of Evaluation Date of Evaluation: 03/17/17 Time of Evaluation: 09:00 - Subjective Subjective: wbc trending down iv vanco and diflucan reordered left foot with vac in place cont rx as per dr rosas Objective - Vital Signs/Intake and Output Vital Signs (last 24 hours): Temp Pulse Resp BP Pulse Ox 98.3 F 88 20 168/60 H 98 03/17/17 09:25 03/17/17 09:25 03/17/17 09:25 03/17/17 11:25 03/17/17 09:25 Intake and Output: 03/17/17 03/17/17 06:59 18:59 Intake Total 1100 Balance 1100 - Medications Medications: Current Medications Amlodipine Besylate (Norvasc) 5 mg PO DAILY [facility] Last Admin: 03/17/17 11:28 Dose: Not Given Brimonidine Tartrate (Alphagan 0.2% Opht) 1 ml OU TID [facility] Last Admin: 03/17/17 11:27 Dose: Not Given Collagenase (Santyl) 0 gm TOP DAILY [facility] Last Admin: 03/17/17 11:29 Dose: Not Given Dextrose (Dextrose 50% Inj) 0 ml IV STAT PRN; Protocol PRN Reason: Hyglycemia Protocol Dextrose (Glutose 15) 0 gm PO ONCE PRN; Protocol PRN Reason: Hypoglycemia Protocol Epoetin Maxwell (Procrit) 10,000 unit IV TTS [facility] Last Admin: 03/17/17 10:58 Dose: 10,000 unit Glucagon (Glucagen Diagnostic Kit) 0 mg IM STAT PRN; Protocol PRN Reason: Hypoglycemia Protocol Heparin Sodium (Porcine) (Heparin) 5,000 units SC Q8 [facility] Last Admin: 03/17/17 05:48 Dose: 5,000 units Hydromorphone HCl (Dilaudid) 0.5 mg IVP Q4H PRN PRN Reason: Pain, severe (8-10) Last Admin: 03/16/17 16:37 Dose: 0.5 mg Fluconazole (Diflucan Iv 200 Mg/100 Ml Ns) 100 mls @ 100 mls/hr IVPB DAILY [facility] Last Admin: 03/16/17 09:16 Dose: 100 mls/hr Vancomycin/Sodium Chloride (Vancomycin 1 Gm/Ns 200 Ml) 1 gm in 200 mls @ 166.7 mls/hr IVPB MWF [facility] Stop: 03/21/17 09:01 Last Admin: 03/16/17 09:15 Dose: 166.7 mls/hr Metronidazole (Flagyl) 500 mg in 100 mls @ 100 mls/hr IVPB Q8 [facility] Last Admin: 03/17/17 05:47 Dose: 100 mls/hr Insulin Glargine (Lantus) 25 unit SC HS [facility] Last Admin: 03/16/17 22:27 Dose: Not Given Insulin Human Regular (Novolin R) 0 unit SC ACHS [facility] PRN Reason: Protocol Last Admin: 03/17/17 08:27 Dose: 6 unit Latanoprost (Xalatan Opht) 0.02 ml OU HS [facility] Last Admin: 03/16/17 22:24 Dose: 0.02 ml Losartan Potassium (Cozaar) 100 mg PO DAILY [facility] Last Admin: 03/16/17 09:17 Dose: 100 mg Pantoprazole Sodium (Protonix Inj) 40 mg IVP Q12H [facility] Last Admin: 03/17/17 04:00 Dose: 40 mg Rosuvastatin Calcium (Crestor) 10 mg PO HS [facility] Last Admin: 03/16/17 22:19 Dose: 10 mg Timolol Maleate (Timoptic 0.5% Oph Soln) 1 drop OU BID [facility] Last Admin: 03/17/17 11:29 Dose: Not Given Vitamin B Complex/Vit C/Folic Acid (Nephro-Alonzo) 1 tab PO 0800 [facility] Last Admin: 03/17/17 11:28 Dose: Not Given - Labs Labs: 03/17/17 09:52 03/17/17 09:52 PT 12.3 SECONDS (9.7-12.2) H 02/18/17 05:30 INR 1.1 02/18/17 05:30 APTT 30 SECONDS (21-34) 02/18/17 05:30 - Constitutional Appears: Non-toxic, Confused, Chronically Ill - Head Exam Head Exam: NORMOCEPHALIC - Eye Exam Eye Exam: PERRL - ENT Exam ENT Exam: Mucous Membranes Dry - Neck Exam Neck Exam: absent: Lymphadenopathy - Respiratory Exam Respiratory Exam: Decreased Breath Sounds - Cardiovascular Exam Cardiovascular Exam: REGULAR RHYTHM - GI/Abdominal Exam GI & Abdominal Exam: Distended, Soft Assessment and Plan (1) Change in mental status Status: Acute (2) End stage renal disease on dialysis Status: Acute (3) Heel ulcer Status: Acute (4) IDDM (insulin dependent diabetes mellitus) Status: Chronic
[2017-03-17] MEDS: Fluconazole IV 200mg/100 ml NS 100 ML IVPB SCH (13:42)
--- NOTE | 2017-03-17 14:14 | CP.PCM.PN ---
Subjective - Date & Time of Evaluation Date of Evaluation: 03/17/17 Time of Evaluation: 14:12 - Subjective Subjective: F/U dysphagia. anemia and RN present at bedside. NG tube in No report of RB, melena, abdom pain, fever, chills, SZ, LOC, hematuria, hemoptysis. Objective - Vital Signs/Intake and Output Vital Signs (last 24 hours): Temp Pulse Resp BP Pulse Ox 97.6 F 89 20 120/72 98 03/17/17 13:40 03/17/17 13:40 03/17/17 13:40 03/17/17 13:40 03/17/17 13:40 Intake and Output: 03/17/17 03/17/17 06:59 18:59 Intake Total 1100 Balance 1100 - Medications Medications: Current Medications Amlodipine Besylate (Norvasc) 5 mg PO DAILY [facility] Last Admin: 03/17/17 11:28 Dose: Not Given Brimonidine Tartrate (Alphagan 0.2% Opht) 1 ml OU TID [facility] Last Admin: 03/17/17 13:52 Dose: 1 drop Dextrose (Dextrose 50% Inj) 0 ml IV STAT PRN; Protocol PRN Reason: Hyglycemia Protocol Dextrose (Glutose 15) 0 gm PO ONCE PRN; Protocol PRN Reason: Hypoglycemia Protocol Epoetin Maxwell (Procrit) 10,000 unit IV TTS [facility] Last Admin: 03/17/17 10:58 Dose: 10,000 unit Glucagon (Glucagen Diagnostic Kit) 0 mg IM STAT PRN; Protocol PRN Reason: Hypoglycemia Protocol Heparin Sodium (Porcine) (Heparin) 5,000 units SC Q8 [facility] Last Admin: 03/17/17 13:41 Dose: 5,000 units Hydromorphone HCl (Dilaudid) 0.5 mg IVP Q4H PRN PRN Reason: Pain, severe (8-10) Last Admin: 03/16/17 16:37 Dose: 0.5 mg Fluconazole (Diflucan Iv 200 Mg/100 Ml Ns) 100 mls @ 100 mls/hr IVPB DAILY [facility] Last Admin: 03/17/17 13:42 Dose: 100 mls/hr Vancomycin/Sodium Chloride (Vancomycin 1 Gm/Ns 200 Ml) 1 gm in 200 mls @ 166.7 mls[facility] Stop: 03/21/17 09:01 Last Admin: 03/16/17 09:15 Dose: 166.7 mls/hr Metronidazole (Flagyl) 500 mg in 100 mls @ 100 mls/hr IVPB Q8 [facility] Last Admin: 03/17/17 13:43 Dose: 100 mls/hr Insulin Glargine (Lantus) 25 unit SC HS [facility] Last Admin: 03/16/17 22:27 Dose: Not Given Insulin Human Regular (Novolin R) 0 unit SC ACHS [facility] PRN Reason: Protocol Last Admin: 03/17/17 13:52 Dose: 3 unit Latanoprost (Xalatan Opht) 0.02 ml OU HS [facility] Last Admin: 03/16/17 22:24 Dose: 0.02 ml Losartan Potassium (Cozaar) 100 mg PO DAILY [facility] Last Admin: 03/17/17 13:52 Dose: 100 mg Pantoprazole Sodium (Protonix Inj) 40 mg IVP Q12H [facility] Last Admin: 03/17/17 04:00 Dose: 40 mg Rosuvastatin Calcium (Crestor) 10 mg PO HS [facility] Last Admin: 03/16/17 22:19 Dose: 10 mg Timolol Maleate (Timoptic 0.5% Oph Soln) 1 drop OU BID [facility] Last Admin: 03/17/17 11:29 Dose: Not Given Vitamin B Complex/Vit C/Folic Acid (Nephro-Alonzo) 1 tab PO 0800 [facility] Last Admin: 03/17/17 11:28 Dose: Not Given - Labs Labs: 03/17/17 09:52 03/17/17 09:52 PT 12.3 SECONDS (9.7-12.2) H 02/18/17 05:30 INR 1.1 02/18/17 05:30 APTT 30 SECONDS (21-34) 02/18/17 05:30 - Constitutional Appears: Confused, Chronically Ill - Respiratory Exam Respiratory Exam: Decreased Breath Sounds - Cardiovascular Exam Cardiovascular Exam: RRR - GI/Abdominal Exam GI & Abdominal Exam: Soft, Normal Bowel Sounds. absent: Tenderness, Mass - Neurological Exam Neurological Exam: Awake. absent: Oriented x3 Assessment and Plan (1) Elevated WBC count Assessment & Plan: Still >20 Status: Acute (2) PUD (peptic ulcer disease) Status: Acute (3) Change in mental status Status: Acute (4) Clostridium difficile colitis Status: Acute (5) Dysphagia Assessment & Plan: On NG tube feedings. Too ill for PEG: CRF, HD, pl effusion, Elev K+, Low Na, elev WBC. Status: Acute (6) End stage renal disease on dialysis Status: Acute (7) IDDM (insulin dependent diabetes mellitus) Status: Chronic (8) Heel ulcer Status: Acute (9) Pleural effusion Status: Acute (10) Pericardial effusion Status: Acute (11) Hyponatremia Status: Acute (12) UTI (urinary tract infection) Status: Acute (13) Nutrition disorder Status: Acute
--- NOTE | 2017-03-17 15:44 | OP ---
PROCEDURE DATE: 02/27/2017 PREOPERATIVE DIAGNOSIS: Gangrene, left midfoot and heel. PROCEDURE CARRIED OUT: Removal of skin, subcutaneous tissue, and muscle of left foot. SURGEON: Dr. Broussard. CHURCH MUSICIAN: None. TYPE OF ANESTHESIA: General anesthesia. ANESTHESIOLOGIST: Dr. Gomez. INDICATIONS: The patient is an elderly woman on unsuccessful vascularization with palpable pulse in the foot via her anterior tibial artery. She has known renal failure, previous interventions on the opposite leg. 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 The gangrene is not truly of the heel, but over the lateral aspect of the foot. OPERATIVE FINDINGS: Initially with , we gently attempted to debride this, but the tissue was hard. Underneath this, there was no pus pockets or any other fluid collections or simply dried tissue. This was extensively debrided down to the level of muscle, which was debrided with skin, subcutaneous muscles submitted for exam. Cultures were taken at the deep tissue. After this has been done, the wound was left open and the wound VAC applied. The operation carried out, it was debrided with skin, subcutaneous tissue, muscle, left foot with an excisional debridement as well as debridement and application of wound VAC. Ignacio Broussard Jr., MD cc: Dr. Arce
--- NOTE | 2017-03-17 16:02 | CP.PCM.PN ---
<Trevor Elkins - Last Filed: 03/17/17 16:00> Subjective - Date & Time of Evaluation Date of Evaluation: 03/17/17 Time of Evaluation: 16:00 - Subjective Subjective: Medicine Progress Note for Dr. Myrick HPI: Patient seen and examined at bedside. Moans when leg is manipulated. Besides that she looks comfortable. Does not respond appropriately to questions. Family at bedside. Objective - Vital Signs/Intake and Output Vital Signs (last 24 hours): Temp Pulse Resp BP Pulse Ox 98.2 F 87 20 124/71 92 L 03/17/17 14:25 03/17/17 14:25 03/17/17 14:25 03/17/17 14:25 03/17/17 14:25 Intake and Output: 03/17/17 03/17/17 06:59 18:59 Intake Total 1100 620 Balance 1100 620 - Medications Medications: Current Medications Amlodipine Besylate (Norvasc) 5 mg PO DAILY [facility] Last Admin: 03/17/17 11:28 Dose: Not Given Brimonidine Tartrate (Alphagan 0.2% Opht) 1 ml OU TID [facility] Last Admin: 03/17/17 13:52 Dose: 1 drop Dextrose (Dextrose 50% Inj) 0 ml IV STAT PRN; Protocol PRN Reason: Hyglycemia Protocol Dextrose (Glutose 15) 0 gm PO ONCE PRN; Protocol PRN Reason: Hypoglycemia Protocol Epoetin Maxwell (Procrit) 10,000 unit IV TTS [facility] Last Admin: 03/17/17 10:58 Dose: 10,000 unit Glucagon (Glucagen Diagnostic Kit) 0 mg IM STAT PRN; Protocol PRN Reason: Hypoglycemia Protocol Heparin Sodium (Porcine) (Heparin) 5,000 units SC Q8 [facility] Last Admin: 03/17/17 13:41 Dose: 5,000 units Hydromorphone HCl (Dilaudid) 0.5 mg IVP Q4H PRN PRN Reason: Pain, severe (8-10) Last Admin: 03/16/17 16:37 Dose: 0.5 mg Fluconazole (Diflucan Iv 200 Mg/100 Ml Ns) 100 mls @ 100 mls/hr IVPB DAILY [facility] Last Admin: 03/17/17 13:42 Dose: 100 mls/hr Vancomycin/Sodium Chloride (Vancomycin 1 Gm/Ns 200 Ml) 1 gm in 200 mls @ 166.7 mls/hr IVPB MWF [facility] Stop: 03/21/17 09:01 Last Admin: 03/16/17 09:15 Dose: 166.7 mls/hr Metronidazole (Flagyl) 500 mg in 100 mls @ 100 mls/hr IVPB Q8 [facility] Last Admin: 03/17/17 13:43 Dose: 100 mls/hr Insulin Glargine (Lantus) 25 unit SC HS [facility] Last Admin: 03/16/17 22:27 Dose: Not Given Insulin Human Regular (Novolin R) 0 unit SC ACHS [facility] PRN Reason: Protocol Last Admin: 03/17/17 13:52 Dose: 3 unit Latanoprost (Xalatan Opht) 0.02 ml OU HS [facility] Last Admin: 03/16/17 22:24 Dose: 0.02 ml Losartan Potassium (Cozaar) 100 mg PO DAILY [facility] Last Admin: 03/17/17 13:52 Dose: 100 mg Pantoprazole Sodium (Protonix Inj) 40 mg IVP Q12H [facility] Last Admin: 03/17/17 04:00 Dose: 40 mg Rosuvastatin Calcium (Crestor) 10 mg PO HS [facility] Last Admin: 03/16/17 22:19 Dose: 10 mg Timolol Maleate (Timoptic 0.5% Oph Soln) 1 drop OU BID [facility] Last Admin: 03/17/17 11:29 Dose: Not Given Vitamin B Complex/Vit C/Folic Acid (Nephro-Alonzo) 1 tab PO 0800 [facility] Last Admin: 03/17/17 11:28 Dose: Not Given - Labs Labs: 03/17/17 09:52 03/17/17 09:52 PT 12.3 SECONDS (9.7-12.2) H 02/18/17 05:30 INR 1.1 02/18/17 05:30 APTT 30 SECONDS (21-34) 02/18/17 05:30 - Additional Findings Additional findings: - Constitutional Appears: Chronically Ill - Head Exam Head Exam: ATRAUMATIC, NORMAL INSPECTION, NORMOCEPHALIC - Eye Exam Eye Exam: EOMI - ENT Exam Additional comments: NGT - Respiratory Exam Respiratory Exam: Clear to Ausculation Bilateral, NORMAL BREATHING PATTERN - Cardiovascular Exam Cardiovascular Exam: REGULAR RHYTHM - GI/Abdominal Exam GI & Abdominal Exam: Soft, Normal Bowel Sounds. absent: Distended, Tenderness - Extremities Exam Additional comments: necrotic skin on plantar aspect of L. foot with healthy grnaulatyion tissue on the periphery. 95% tissue. dressing changed with 4x4s, dry, clean and intact - Neurological Exam Neurological Exam: Awake - Skin Skin Exam: Dry, Normal Color, Warm Assessment and Plan - Assessment and Plan (Free Text) Assessment: Non-Healing Left Heel Ulcer * Podiatry (Bennie) * recommended Left BKA * ID (Mangia) * Vascular (Fountain) * recommended Left BKA * Santyl BID * Flagyl 500mg IV Q8 * Vanco 1g IV MWF * Dilaudid 0.5 mg IV Q4 PRN * Low ext arterial duplex (02/04/17) * occlusion R post tib artery, 50-75% stenosis right mid popliteal & proximal anterior tib arteries * occlusion of left post tib artery, >75% stenosis left proximal ant tibial artery, 50-75% stenosis left distal SFA & proximal popliteal a. * Abdominal Angiography 02/19/17 * Severe bilateral lower extremity arterial runoff with 1 vessel likely remaining patent at the right. None is continuously patent at the left lower extremity [id number]. Widely patent abdominal aorta and iliac arterial system with moderate right and [id number] left femoral arterial disease. Severe bilateral popliteal artery arterial disease. Left Pleural Effusion * Pulm (Alvaro) * CXR 03/11 - moderate left pleural effusion. C. Diff * Repeat C diff and stool culture on 02/28-negative Altered Mental Status * Neuro (Carla) * likely 2/2 to hypoglycemia * 03/16: Patient is still moaning and mumbling, with some speech. She has NGT in place. Tolerating feeds. * CT Head negative for Acute Infarction * Monitor Accuchecks qACHS and Q4H End Stage Renal Disease on Hemodialysis * Nephro (Hajal) * TTS Decreased oral intake * Tube feeds, Bolus, 9pm-9am * GI states PEG when more stable Hypertension * Norvasc 5 mg PO daily * Losartan 100 mg PO daily Anemia of Chronic Disease * Likely secondary to ESRD * IV ferlicet 125 * Procrit 10,000 units IV Diabetes * D50 as needed. * Lantus 25 units * Accuchecks * Hgb A1C 8.9 Prophylactic Measures * SCDs * Heparin 5000 units SC Q8H * 1:1 observation due to agitation. Patient tries to get out of bed. * Fall precautions * Palliative care consulted. Disposition: This patient has a very poor prognosis. The family wishes to try to save the leg despite multiple professional opinions on the necessity of an amputation. The family initially wished for the patient to go to [facility] where hyperbaric therapy is available in order to promote healing. They wished to be cared for by their personal pressure supervisor Dr. Ware; however, Dr. Ware has become unavailable. So the family decided to remain at [facility] and attempt healing via vascular surgery to improve circulation and wound debridement of damaged tissue. They were repeatedly warned by multiple certified medical dosimetrist of the risks associated with refusing a BKA and attempting to salvage the foot. The family verbalized understanding of the risks but still decide against a BKA at this time. <Benson Myrick Jr. - Last Filed: 03/29/17 13:05> Objective - Vital Signs/Intake and Output Vital Signs (last 24 hours): Temp Pulse Resp BP Pulse Ox 98.5 F 90 30 H 123/46 L 98 03/29/17 07:00 03/29/17 10:00 03/29/17 10:00 03/29/17 08:14 03/29/17 10:00 Intake and Output: 03/29/17 03/29/17 06:59 18:59 Intake Total Balance - Medications Medications: Current Medications Acetaminophen (Tylenol 325mg Tab) 650 mg PO Q6 PRN PRN Reason: Pain, moderate (4-7) Last Admin: 03/28/17 13:21 Dose: 650 mg Brimonidine Tartrate (Alphagan 0.2% Opht) 1 ml OU TID [facility] Last Admin: 03/29/17 09:39 Dose: 1 drop Collagenase (Santyl) 0 gm TOP DAILY [facility] Last Admin: 03/29/17 09:59 Dose: 1 applic Dextrose (Dextrose 50% Inj) 0 ml IV STAT PRN; Protocol PRN Reason: Hyglycemia Protocol Dextrose (Glutose 15) 0 gm PO ONCE PRN; Protocol PRN Reason: Hypoglycemia Protocol Epoetin Maxwell (Procrit) 10,000 unit IV TTS [facility] Last Admin: 03/28/17 10:33 Dose: 10,000 unit Ergocalciferol (Drisdol 50,000 Intl Units Cap) 1 cap PO Q7D [facility] Last Admin: 03/24/17 00:47 Dose: 1 cap Glucagon (Glucagen Diagnostic Kit) 0 mg IM STAT PRN; Protocol PRN Reason: Hypoglycemia Protocol Heparin Sodium (Porcine) (Heparin) 5,000 units SC Q12 [facility] Last Admin: 03/29/17 09:41 Dose: 5,000 units Vancomycin/Sodium Chloride (Vancomycin 1 Gm/Ns 200 Ml) 1 gm in 200 mls @ 133.333 mls/hr IVPB TTS [facility] Last Admin: 03/28/17 13:26 Dose: 133.333 mls/hr Insulin Glargine (Lantus) 25 unit SC HS [facility] Last Admin: 03/16/17 22:27 Dose: Not Given Insulin Human Regular (Novolin R) 0 unit SC ACHS [facility] PRN Reason: Protocol Last Admin: 03/29/17 12:20 Dose: 4 unit Latanoprost (Xalatan Opht) 0.02 ml OU HS [facility] Last Admin: 03/28/17 21:32 Dose: 0.02 ml Lisinopril (Zestril) 20 mg PO DAILY [facility] Last Admin: 03/29/17 10:03 Dose: 20 mg Pantoprazole Sodium (Protonix Ec Tab) 40 mg PO DAILY [facility] Last Admin: 03/29/17 09:59 Dose: 40 mg Rosuvastatin Calcium (Crestor) 10 mg PO HS [facility] Last Admin: 03/28/17 21:32 Dose: 10 mg Timolol Maleate (Timoptic 0.5% Oph Soln) 1 drop OU BID [facility] Last Admin: 03/29/17 09:38 Dose: 1 drop Vitamin B Complex/Vit C/Folic Acid (Nephro-Alonzo) 1 tab PO 0800 [facility] Last Admin: 03/29/17 08:09 Dose: 1 tab - Labs Labs: 03/29/17 06:45 03/29/17 06:45 PT 12.3 SECONDS (9.7-12.2) H 02/18/17 05:30 INR 1.1 02/18/17 05:30 APTT 30 SECONDS (21-34) 02/18/17 05:30 Attending/Attestation - Attestation I have personally seen and examined this patient.: Yes I have fully participated in the care of the patient.: Yes I have reviewed all pertinent clinical information, including history, physical exam and plan: Yes Notes (Text): 03/29/17 13:04 Agree with resident note and plan of care
--- NOTE | 2017-03-17 17:14 | CP.PCM.PN ---
Subjective - Date & Time of Evaluation Date of Evaluation: 03/17/17 Time of Evaluation: 12:00 - Subjective Subjective: SEEN ON RENAL F/U SEEN ON HD .. K WAS HIGH THIS AM 6.1 FEELS THE SAME TOLERATING NGT FEEDING Objective - Vital Signs/Intake and Output Vital Signs (last 24 hours): Temp Pulse Resp BP Pulse Ox 98.2 F 87 20 124/71 92 L 03/17/17 14:25 03/17/17 14:25 03/17/17 14:25 03/17/17 14:25 03/17/17 14:25 Intake and Output: 03/17/17 03/17/17 06:59 18:59 Intake Total 1100 620 Balance 1100 620 - Medications Medications: Current Medications Amlodipine Besylate (Norvasc) 5 mg PO DAILY [facility] Last Admin: 03/17/17 11:28 Dose: Not Given Brimonidine Tartrate (Alphagan 0.2% Opht) 1 ml OU TID [facility] Last Admin: 03/17/17 13:52 Dose: 1 drop Dextrose (Dextrose 50% Inj) 0 ml IV STAT PRN; Protocol PRN Reason: Hyglycemia Protocol Dextrose (Glutose 15) 0 gm PO ONCE PRN; Protocol PRN Reason: Hypoglycemia Protocol Epoetin Maxwell (Procrit) 10,000 unit IV TTS [facility] Last Admin: 03/17/17 10:58 Dose: 10,000 unit Glucagon (Glucagen Diagnostic Kit) 0 mg IM STAT PRN; Protocol PRN Reason: Hypoglycemia Protocol Heparin Sodium (Porcine) (Heparin) 5,000 units SC Q8 [facility] Last Admin: 03/17/17 13:41 Dose: 5,000 units Hydromorphone HCl (Dilaudid) 0.5 mg IVP Q4H PRN PRN Reason: Pain, severe (8-10) Last Admin: 03/16/17 16:37 Dose: 0.5 mg Fluconazole (Diflucan Iv 200 Mg/100 Ml Ns) 100 mls @ 100 mls/hr IVPB DAILY [facility] Last Admin: 03/17/17 13:42 Dose: 100 mls/hr Vancomycin/Sodium Chloride (Vancomycin 1 Gm/Ns 200 Ml) 1 gm in 200 mls @ 166.7 mls/hr IVPB MWF [facility] Stop: 03/21/17 09:01 Last Admin: 03/16/17 09:15 Dose: 166.7 mls/hr Metronidazole (Flagyl) 500 mg in 100 mls @ 100 mls/hr IVPB Q8 [facility] Last Admin: 03/17/17 13:43 Dose: 100 mls/hr Insulin Glargine (Lantus) 25 unit SC HS [facility] Last Admin: 03/16/17 22:27 Dose: Not Given Insulin Human Regular (Novolin R) 0 unit SC ACHS [facility] PRN Reason: Protocol Last Admin: 03/17/17 13:52 Dose: 3 unit Latanoprost (Xalatan Opht) 0.02 ml OU HS [facility] Last Admin: 03/16/17 22:24 Dose: 0.02 ml Losartan Potassium (Cozaar) 100 mg PO DAILY [facility] Last Admin: 03/17/17 13:52 Dose: 100 mg Rosuvastatin Calcium (Crestor) 10 mg PO HS [facility] Last Admin: 03/16/17 22:19 Dose: 10 mg Timolol Maleate (Timoptic 0.5% Oph Soln) 1 drop OU BID [facility] Last Admin: 03/17/17 11:29 Dose: Not Given Vitamin B Complex/Vit C/Folic Acid (Nephro-Alonzo) 1 tab PO 0800 [facility] Last Admin: 03/17/17 11:28 Dose: Not Given - Labs Labs: 03/17/17 09:52 03/17/17 09:52 PT 12.3 SECONDS (9.7-12.2) H 02/18/17 05:30 INR 1.1 02/18/17 05:30 APTT 30 SECONDS (21-34) 02/18/17 05:30 Assessment and Plan - Assessment and Plan (Free Text) Assessment: ESRD ON HD T T S .. TO BE C/O ANEMIA OF CKD .. WILL KEEP AN EYE ON H/H ELECTROLYTES ABN .. K 6.1 MULTIPLE CO MORBIDITIES P : C/O CURRENT CARE C/O PRESENT MEDS
[2017-03-17] MEDS: Latanoprost 2.5 ml Opht Soln OU SCH (22:28)
[2017-03-18] MEDS: HYDROmorphone 0.5 mg/0.5 ml ISec IVP PRN ×2 (00:11→22:09)
[2017-03-18] MEDS ORDERED: (Novolin R) Insulin Human Regular 100 units/ml vial SC ONE (04:39)
[2017-03-18] MEDS: metroNIDAZOLE IV 500 mg/100 ml 500 MG/100 ML BAG IVPB SCH ×3 (06:15→22:09)
[2017-03-18] MEDS ORDERED: (Novolin R) Insulin Human Regular 100 units/ml vial SC SCH (07:15)
--- NOTE | 2017-03-18 08:25 | CP.PCM.PN ---
Subjective - Date & Time of Evaluation Date of Evaluation: 03/18/17 Time of Evaluation: 08:23 - Subjective Subjective: CC: follow up Poor PO intake Off Protonix today. Little clinical change- Marked leukocytosis, hyperkalemia, hyponatremia, renal failure, anemia, uncontrolled Diabetes. Trying to talk to me. Dependent on NG feeds Objective - Vital Signs/Intake and Output Vital Signs (last 24 hours): Temp Pulse Resp BP Pulse Ox 97.9 F 98 H 18 168/81 H 95 03/18/17 07:10 03/18/17 07:10 03/18/17 07:10 03/18/17 07:10 03/18/17 07:10 - Medications Medications: Current Medications Amlodipine Besylate (Norvasc) 5 mg PO DAILY [facility] Last Admin: 03/17/17 11:28 Dose: Not Given Brimonidine Tartrate (Alphagan 0.2% Opht) 1 ml OU TID [facility] Last Admin: 03/17/17 17:47 Dose: 1 drop Collagenase (Santyl) 0 gm TOP DAILY [facility] Dextrose (Dextrose 50% Inj) 0 ml IV STAT PRN; Protocol PRN Reason: Hyglycemia Protocol Dextrose (Glutose 15) 0 gm PO ONCE PRN; Protocol PRN Reason: Hypoglycemia Protocol Epoetin Maxwell (Procrit) 10,000 unit IV TTS [facility] Last Admin: 03/17/17 10:58 Dose: 10,000 unit Glucagon (Glucagen Diagnostic Kit) 0 mg IM STAT PRN; Protocol PRN Reason: Hypoglycemia Protocol Heparin Sodium (Porcine) (Heparin) 5,000 units SC Q8 [facility] Last Admin: 03/18/17 05:33 Dose: 5,000 units Hydromorphone HCl (Dilaudid) 0.5 mg IVP Q4H PRN PRN Reason: Pain, severe (8-10) Last Admin: 03/18/17 00:11 Dose: 0.5 mg Fluconazole (Diflucan Iv 200 Mg/100 Ml Ns) 100 mls @ 100 mls/hr IVPB DAILY [facility] Last Admin: 03/17/17 13:42 Dose: 100 mls/hr Vancomycin/Sodium Chloride (Vancomycin 1 Gm/Ns 200 Ml) 1 gm in 200 mls @ 166.7 mls/hr IVPB MWF [facility] Stop: 03/21/17 09:01 Last Admin: 03/16/17 09:15 Dose: 166.7 mls/hr Metronidazole (Flagyl) 500 mg in 100 mls @ 100 mls/hr IVPB Q8 [facility] Last Admin: 03/17/17 22:30 Dose: 100 mls/hr Insulin Glargine (Lantus) 25 unit SC HS [facility] Last Admin: 03/16/17 22:27 Dose: Not Given Insulin Human Regular (Novolin R) 0 unit SC Q4 [facility] PRN Reason: Protocol Latanoprost (Xalatan Opht) 0.02 ml OU HS [facility] Last Admin: 03/17/17 22:28 Dose: 0.02 ml Losartan Potassium (Cozaar) 100 mg PO DAILY [facility] Last Admin: 03/17/17 13:52 Dose: 100 mg Rosuvastatin Calcium (Crestor) 10 mg PO HS [facility] Last Admin: 03/17/17 22:28 Dose: 10 mg Timolol Maleate (Timoptic 0.5% Oph Soln) 1 drop OU BID [facility] Last Admin: 03/17/17 17:48 Dose: 1 drop Vitamin B Complex/Vit C/Folic Acid (Nephro-Alonzo) 1 tab PO 0800 [facility] Last Admin: 03/17/17 11:28 Dose: Not Given - Labs Labs: 03/17/17 09:52 03/17/17 09:52 PT 12.3 SECONDS (9.7-12.2) H 02/18/17 05:30 INR 1.1 02/18/17 05:30 APTT 30 SECONDS (21-34) 02/18/17 05:30 - Constitutional Appears: Confused, Chronically Ill - Head Exam Head Exam: NORMOCEPHALIC - Eye Exam Eye Exam: absent: Scleral icterus - ENT Exam Additional comments: NG tube in place - Neck Exam Neck Exam: Normal Inspection - Respiratory Exam Respiratory Exam: NORMAL BREATHING PATTERN - Cardiovascular Exam Cardiovascular Exam: REGULAR RHYTHM - GI/Abdominal Exam GI & Abdominal Exam: Soft, Normal Bowel Sounds. absent: Distended, Tenderness Assessment and Plan (1) Clostridium difficile colitis Status: Acute (2) Change in mental status Status: Acute (3) End stage renal disease on dialysis Status: Acute (4) Heel ulcer Status: Acute (5) IDDM (insulin dependent diabetes mellitus) Status: Chronic (6) Dysphagia Assessment & Plan: Dependent on NG feeds Continue feeds Too unstable for PEG at this time Status: Acute (7) PUD (peptic ulcer disease) Assessment & Plan: Will reorder Protonix Status: Acute
[2017-03-18] MEDS: (Novolin R) Insulin Human Regular 100 units/ml vial SC SCH ×4 (09:15→22:08)
[2017-03-18] MEDS: Vancomycin 1 gm/NS 200 ml 1 GM/200 ML BAG IVPB SCH (10:46)
[2017-03-18] MEDS: Multivitamin Vitamin B Complex (Nephro-Vite) Tab PO SCH (10:46)
[2017-03-18] MEDS: Fluconazole IV 200mg/100 ml NS 100 ML IVPB SCH (10:47)
[2017-03-18] MEDS: Brimonidine 0.2% Opth Sol (5ml) OU SCH ×2 (10:47→18:15)
[2017-03-18] MEDS: Collagenase 250 Units/gm Ointment(30 gm) TOP SCH (10:47)
--- NOTE | 2017-03-18 11:31 | CP.PCM.PN ---
<Trevor Elkins - Last Filed: 03/18/17 14:43> Subjective - Date & Time of Evaluation Date of Evaluation: 03/18/17 Time of Evaluation: 11:28 - Subjective Subjective: Medicine Progress Note for Dr. Myrick HPI: Patient seen and examined at bedside. Moans when leg is manipulated. Besides that she looks comfortable. Does not respond appropriately to questions. Family at bedside. Objective - Vital Signs/Intake and Output Vital Signs (last 24 hours): Temp Pulse Resp BP Pulse Ox 97.9 F 98 H 18 168/81 H 95 03/18/17 07:10 03/18/17 07:10 03/18/17 07:10 03/18/17 07:10 03/18/17 07:10 - Medications Medications: Current Medications Amlodipine Besylate (Norvasc) 5 mg PO DAILY [facility] Last Admin: 03/18/17 10:46 Dose: 5 mg Brimonidine Tartrate (Alphagan 0.2% Opht) 1 ml OU TID [facility] Last Admin: 03/18/17 10:47 Dose: 1 drop Collagenase (Santyl) 0 gm TOP DAILY [facility] Last Admin: 03/18/17 10:47 Dose: Not Given Dextrose (Dextrose 50% Inj) 0 ml IV STAT PRN; Protocol PRN Reason: Hyglycemia Protocol Dextrose (Glutose 15) 0 gm PO ONCE PRN; Protocol PRN Reason: Hypoglycemia Protocol Epoetin Maxwell (Procrit) 10,000 unit IV TTS [facility] Last Admin: 03/17/17 10:58 Dose: 10,000 unit Glucagon (Glucagen Diagnostic Kit) 0 mg IM STAT PRN; Protocol PRN Reason: Hypoglycemia Protocol Heparin Sodium (Porcine) (Heparin) 5,000 units SC Q8 [facility] Last Admin: 03/18/17 05:33 Dose: 5,000 units Hydromorphone HCl (Dilaudid) 0.5 mg IVP Q4H PRN PRN Reason: Pain, severe (8-10) Last Admin: 03/18/17 00:11 Dose: 0.5 mg Fluconazole (Diflucan Iv 200 Mg/100 Ml Ns) 100 mls @ 100 mls/hr IVPB DAILY [facility] Last Admin: 03/18/17 10:47 Dose: 100 mls/hr Vancomycin/Sodium Chloride (Vancomycin 1 Gm/Ns 200 Ml) 1 gm in 200 mls @ 166.7 mls/hr IVPB MWF [facility] Stop: 03/21/17 09:01 Last Admin: 03/18/17 10:46 Dose: 166.7 mls/hr Metronidazole (Flagyl) 500 mg in 100 mls @ 100 mls/hr IVPB Q8 [facility] Last Admin: 03/17/17 22:30 Dose: 100 mls/hr Insulin Glargine (Lantus) 25 unit SC HS [facility] Last Admin: 03/16/17 22:27 Dose: Not Given Insulin Human Regular (Novolin R) 0 unit SC Q4 [facility] PRN Reason: Protocol Last Admin: 03/18/17 09:15 Dose: 6 unit Latanoprost (Xalatan Opht) 0.02 ml OU HS [facility] Last Admin: 03/17/17 22:28 Dose: 0.02 ml Losartan Potassium (Cozaar) 100 mg PO DAILY [facility] Last Admin: 03/18/17 10:46 Dose: 100 mg Pantoprazole Sodium (Protonix Inj) 40 mg IVP DAILY [facility] Last Admin: 03/18/17 10:45 Dose: 40 mg Rosuvastatin Calcium (Crestor) 10 mg PO HS [facility] Last Admin: 03/17/17 22:28 Dose: 10 mg Timolol Maleate (Timoptic 0.5% Oph Soln) 1 drop OU BID [facility] Last Admin: 03/18/17 10:47 Dose: 1 drop Vitamin B Complex/Vit C/Folic Acid (Nephro-Alonzo) 1 tab PO 0800 [facility] Last Admin: 03/18/17 10:46 Dose: 1 tab - Labs Labs: 03/17/17 09:52 03/17/17 09:52 PT 12.3 SECONDS (9.7-12.2) H 02/18/17 05:30 INR 1.1 02/18/17 05:30 APTT 30 SECONDS (21-34) 02/18/17 05:30 - Additional Findings Additional findings: - Constitutional Appears: Chronically Ill - Head Exam Head Exam: ATRAUMATIC, NORMAL INSPECTION, NORMOCEPHALIC - Eye Exam Eye Exam: EOMI - ENT Exam Additional comments: NGT - Respiratory Exam Respiratory Exam: Clear to Ausculation Bilateral, NORMAL BREATHING PATTERN - Cardiovascular Exam Cardiovascular Exam: REGULAR RHYTHM - GI/Abdominal Exam GI & Abdominal Exam: Soft, Normal Bowel Sounds. absent: Distended, Tenderness - Extremities Exam Additional comments: necrotic skin on plantar aspect of L. foot with healthy grnaulatyion tissue on the periphery. 95% tissue. dressing changed with 4x4s, dry, clean and intact - Neurological Exam Neurological Exam: Awake - Skin Skin Exam: Dry, Normal Color, Warm Assessment and Plan - Assessment and Plan (Free Text) Assessment: Non-Healing Left Heel Ulcer * Podiatry (Bennie) * recommended Left BKA * ID (Mangia) * Vascular ([place]) * recommended Left BKA * Santyl BID * Flagyl 500mg IV Q8 * Vanco 1g IV MWF * Dilaudid 0.5 mg IV Q4 PRN * Low ext arterial duplex (02/04/17) * occlusion R post tib artery, 50-75% stenosis right mid popliteal & proximal anterior tib arteries * occlusion of left post tib artery, >75% stenosis left proximal ant tibial artery, 50-75% stenosis left distal SFA & proximal popliteal a. * Abdominal Angiography 02/19/17 * Severe bilateral lower extremity arterial runoff with 1 vessel likely remaining patent at the right. None is continuously patent at the left lower extremity [id number]. Widely patent abdominal aorta and iliac arterial system with moderate right and [id number] left femoral arterial disease. Severe bilateral popliteal artery arterial disease. Left Pleural Effusion * Pulm (Alvaro) * CXR 03/11 - moderate left pleural effusion. C. Diff * Repeat C diff and stool culture on 02/28-negative Altered Mental Status * Neuro (Carla) * likely 2/2 to hypoglycemia * 03/16: Patient is still moaning and mumbling, with some speech. She has NGT in place. Tolerating feeds. * CT Head negative for Acute Infarction * Monitor Accuchecks qACHS and Q4H End Stage Renal Disease on Hemodialysis * Nephro (Hajal) * TTS Decreased oral intake * NGT pulled * Soft diet * PEG when more stable Hypertension * Norvasc 5 mg PO daily * Losartan 100 mg PO daily Anemia of Chronic Disease * Likely secondary to ESRD * IV ferlicet 125 * Procrit 10,000 units IV Diabetes * D50 as needed. * Lantus 25 units * Accuchecks * Hgb A1C 8.9 Prophylactic Measures * SCDs * Heparin 5000 units SC Q8H * 1:1 observation due to agitation. Patient tries to get out of bed. * Fall precautions * Palliative care consulted. Disposition: This patient has a very poor prognosis. The family wishes to try to save the leg despite multiple professional opinions on the necessity of an amputation. The family initially wished for the patient to go to [facility] where hyperbaric therapy is available in order to promote healing. They wished to be cared for by their personal supervisor special education Dr. Ware; however, Dr. Ware has become unavailable. So the family decided to remain at [facility] and attempt healing via vascular surgery to improve circulation and wound debridement of damaged tissue. They were repeatedly warned by multiple medical support specialist of the risks associated with refusing a BKA and attempting to salvage the foot. The family verbalized understanding of the risks but still decide against a BKA at this time. <Benson Myrick Jr. - Last Filed: 03/29/17 13:07> Objective - Vital Signs/Intake and Output Vital Signs (last 24 hours): Temp Pulse Resp BP Pulse Ox 98.5 F 90 30 H 123/46 L 98 03/29/17 07:00 03/29/17 10:00 03/29/17 10:00 03/29/17 08:14 03/29/17 10:00 Intake and Output: 03/29/17 03/29/17 06:59 18:59 Intake Total Balance - Medications Medications: Current Medications Acetaminophen (Tylenol 325mg Tab) 650 mg PO Q6 PRN PRN Reason: Pain, moderate (4-7) Last Admin: 03/28/17 13:21 Dose: 650 mg Brimonidine Tartrate (Alphagan 0.2% Opht) 1 ml OU TID [facility] Last Admin: 03/29/17 09:39 Dose: 1 drop Collagenase (Santyl) 0 gm TOP DAILY [facility] Last Admin: 03/29/17 09:59 Dose: 1 applic Dextrose (Dextrose 50% Inj) 0 ml IV STAT PRN; Protocol PRN Reason: Hyglycemia Protocol Dextrose (Glutose 15) 0 gm PO ONCE PRN; Protocol PRN Reason: Hypoglycemia Protocol Epoetin Maxwell (Procrit) 10,000 unit IV TTS [facility] Last Admin: 03/28/17 10:33 Dose: 10,000 unit Ergocalciferol (Drisdol 50,000 Intl Units Cap) 1 cap PO Q7D [facility] Last Admin: 03/24/17 00:47 Dose: 1 cap Glucagon (Glucagen Diagnostic Kit) 0 mg IM STAT PRN; Protocol PRN Reason: Hypoglycemia Protocol Heparin Sodium (Porcine) (Heparin) 5,000 units SC Q12 [facility] Last Admin: 03/29/17 09:41 Dose: 5,000 units Vancomycin/Sodium Chloride (Vancomycin 1 Gm/Ns 200 Ml) 1 gm in 200 mls @ 133.333 mls/hr IVPB TTS [facility] Last Admin: 03/28/17 13:26 Dose: 133.333 mls/hr Insulin Glargine (Lantus) 25 unit SC HS [facility] Last Admin: 03/16/17 22:27 Dose: Not Given Insulin Human Regular (Novolin R) 0 unit SC ACHS [facility] PRN Reason: Protocol Last Admin: 03/29/17 12:20 Dose: 4 unit Latanoprost (Xalatan Opht) 0.02 ml OU HS [facility] Last Admin: 03/28/17 21:32 Dose: 0.02 ml Lisinopril (Zestril) 20 mg PO DAILY [facility] Last Admin: 03/29/17 10:03 Dose: 20 mg Pantoprazole Sodium (Protonix Ec Tab) 40 mg PO DAILY [facility] Last Admin: 03/29/17 09:59 Dose: 40 mg Rosuvastatin Calcium (Crestor) 10 mg PO HS [facility] Last Admin: 03/28/17 21:32 Dose: 10 mg Timolol Maleate (Timoptic 0.5% Oph Soln) 1 drop OU BID [facility] Last Admin: 03/29/17 09:38 Dose: 1 drop Vitamin B Complex/Vit C/Folic Acid (Nephro-Alonzo) 1 tab PO 0800 [facility] Last Admin: 03/29/17 08:09 Dose: 1 tab - Labs Labs: 03/29/17 06:45 03/29/17 06:45 PT 12.3 SECONDS (9.7-12.2) H 02/18/17 05:30 INR 1.1 02/18/17 05:30 APTT 30 SECONDS (21-34) 02/18/17 05:30 Attending/Attestation - Attestation I have personally seen and examined this patient.: Yes I have fully participated in the care of the patient.: Yes I have reviewed all pertinent clinical information, including history, physical exam and plan: Yes Notes (Text): 03/29/17 13:07 Agree with resident note and plan of care
--- NOTE | 2017-03-18 17:51 | CP.PCM.PN ---
Subjective - Date & Time of Evaluation Date of Evaluation: 03/18/17 Time of Evaluation: 09:00 - Subjective Subjective: weak and lethagic little improvrment family refusing amputation left foot Objective - Vital Signs/Intake and Output Vital Signs (last 24 hours): Temp Pulse Resp BP Pulse Ox 99.1 F 80 20 144/65 97 03/18/17 16:00 03/18/17 16:00 03/18/17 16:00 03/18/17 16:00 03/18/17 16:00 Intake and Output: 03/18/17 03/18/17 06:59 18:59 Intake Total 880 Balance 880 - Medications Medications: Current Medications Amlodipine Besylate (Norvasc) 5 mg PO DAILY [facility] Last Admin: 03/18/17 10:46 Dose: 5 mg Brimonidine Tartrate (Alphagan 0.2% Opht) 1 ml OU TID [facility] Last Admin: 03/18/17 10:47 Dose: 1 drop Collagenase (Santyl) 0 gm TOP DAILY [facility] Last Admin: 03/18/17 10:47 Dose: Not Given Dextrose (Dextrose 50% Inj) 0 ml IV STAT PRN; Protocol PRN Reason: Hyglycemia Protocol Dextrose (Glutose 15) 0 gm PO ONCE PRN; Protocol PRN Reason: Hypoglycemia Protocol Epoetin Maxwell (Procrit) 10,000 unit IV TTS [facility] Last Admin: 03/17/17 10:58 Dose: 10,000 unit Glucagon (Glucagen Diagnostic Kit) 0 mg IM STAT PRN; Protocol PRN Reason: Hypoglycemia Protocol Heparin Sodium (Porcine) (Heparin) 5,000 units SC Q8 [facility] Last Admin: 03/18/17 13:04 Dose: 5,000 units Hydromorphone HCl (Dilaudid) 0.5 mg IVP Q4H PRN PRN Reason: Pain, severe (8-10) Last Admin: 03/18/17 00:11 Dose: 0.5 mg Fluconazole (Diflucan Iv 200 Mg/100 Ml Ns) 100 mls @ 100 mls/hr IVPB DAILY [facility] Last Admin: 03/18/17 10:47 Dose: 100 mls/hr Vancomycin/Sodium Chloride (Vancomycin 1 Gm/Ns 200 Ml) 1 gm in 200 mls @ 166.7 mls/hr IVPB MWF [facility] Stop: 03/21/17 09:01 Last Admin: 03/18/17 10:46 Dose: 166.7 mls/hr Metronidazole (Flagyl) 500 mg in 100 mls @ 100 mls/hr IVPB Q8 [facility] Last Admin: 03/18/17 13:04 Dose: 100 mls/hr Insulin Glargine (Lantus) 25 unit SC HS [facility] Last Admin: 03/16/17 22:27 Dose: Not Given Insulin Human Regular (Novolin R) 0 unit SC ACHS [facility] PRN Reason: Protocol Latanoprost (Xalatan Opht) 0.02 ml OU HS [facility] Last Admin: 03/17/17 22:28 Dose: 0.02 ml Lisinopril (Zestril) 20 mg PO DAILY [facility] Pantoprazole Sodium (Protonix Inj) 40 mg IVP DAILY [facility] Last Admin: 03/18/17 10:45 Dose: 40 mg Rosuvastatin Calcium (Crestor) 10 mg PO HS [facility] Last Admin: 03/17/17 22:28 Dose: 10 mg Timolol Maleate (Timoptic 0.5% [facility]) 1 drop OU BID [facility] Last Admin: 03/18/17 10:47 Dose: 1 drop Vitamin B Complex/Vit C/Folic Acid (Nephro-Alonzo) 1 tab PO 0800 [facility] Last Admin: 03/18/17 10:46 Dose: 1 tab - Labs Labs: 03/17/17 09:52 03/17/17 09:52 PT 12.3 SECONDS (9.7-12.2) H 02/18/17 05:30 INR 1.1 02/18/17 05:30 APTT 30 SECONDS (21-34) 02/18/17 05:30 - Constitutional Appears: Non-toxic, Chronically Ill - Head Exam Head Exam: NORMOCEPHALIC - Eye Exam Eye Exam: PERRL - ENT Exam ENT Exam: Mucous Membranes Dry - Neck Exam Neck Exam: absent: Lymphadenopathy - Respiratory Exam Respiratory Exam: Decreased Breath Sounds - Cardiovascular Exam Cardiovascular Exam: REGULAR RHYTHM - GI/Abdominal Exam GI & Abdominal Exam: Distended - Rectal Exam Rectal Exam: Deferred - Exam Exam: NORMAL INSPECTION - Extremities Exam Extremities Exam: absent: Pedal Edema - Back Exam Back Exam: absent: CVA tenderness (L), CVA tenderness (R) - Neurological Exam Neurological Exam: Alert, Altered, Awake - Psychiatric Exam Psychiatric exam: Depressed - Skin Skin Exam: Dry Assessment and Plan (1) Change in mental status Status: Acute (2) End stage renal disease on dialysis Status: Acute (3) Heel ulcer Status: Acute (4) IDDM (insulin dependent diabetes mellitus) Status: Chronic
[2017-03-18] MEDS: Latanoprost 2.5 ml Opht Soln OU SCH (22:09)
--- NOTE | 2017-03-18 22:14 | CP.PCM.PN ---
Subjective - Date & Time of Evaluation Date of Evaluation: 03/18/17 Time of Evaluation: 14:00 - Subjective Subjective: EEN ON RENAL F/U WEAK .. TIRED ,, ON NGT FEEDING ON HD T T S ALL PREVIOUS EMR REVIEWED Objective - Vital Signs/Intake and Output Vital Signs (last 24 hours): Temp Pulse Resp BP Pulse Ox 99.1 F 80 20 144/65 97 03/18/17 16:00 03/18/17 16:00 03/18/17 16:00 03/18/17 16:00 03/18/17 16:00 Intake and Output: 03/18/17 03/19/17 18:59 06:59 Intake Total 880 Balance 880 - Medications Medications: Current Medications Amlodipine Besylate (Norvasc) 5 mg PO DAILY [facility] Last Admin: 03/18/17 10:46 Dose: 5 mg Brimonidine Tartrate (Alphagan 0.2% Opht) 1 ml OU TID [facility] Last Admin: 03/18/17 18:15 Dose: 1 drop Collagenase (Santyl) 0 gm TOP DAILY [facility] Last Admin: 03/18/17 10:47 Dose: Not Given Dextrose (Dextrose 50% Inj) 0 ml IV STAT PRN; Protocol PRN Reason: Hyglycemia Protocol Dextrose (Glutose 15) 0 gm PO ONCE PRN; Protocol PRN Reason: Hypoglycemia Protocol Epoetin Maxwell (Procrit) 10,000 unit IV TTS [facility] Last Admin: 03/17/17 10:58 Dose: 10,000 unit Glucagon (Glucagen Diagnostic Kit) 0 mg IM STAT PRN; Protocol PRN Reason: Hypoglycemia Protocol Heparin Sodium (Porcine) (Heparin) 5,000 units SC Q8 [facility] Last Admin: 03/18/17 22:09 Dose: 5,000 units Hydromorphone HCl (Dilaudid) 0.5 mg IVP Q4H PRN PRN Reason: Pain, severe (8-10) Last Admin: 03/18/17 22:09 Dose: 0.5 mg Fluconazole (Diflucan Iv 200 Mg/100 Ml Ns) 100 mls @ 100 mls/hr IVPB DAILY [facility] Last Admin: 03/18/17 10:47 Dose: 100 mls/hr Vancomycin/Sodium Chloride (Vancomycin 1 Gm/Ns 200 Ml) 1 gm in 200 mls @ 166.7 mls/hr IVPB MWF [facility] Stop: 03/21/17 09:01 Last Admin: 03/18/17 10:46 Dose: 166.7 mls/hr Metronidazole (Flagyl) 500 mg in 100 mls @ 100 mls/hr IVPB Q8 [facility] Last Admin: 03/18/17 22:09 Dose: 100 mls/hr Insulin Glargine (Lantus) 25 unit SC HS [facility] Last Admin: 03/16/17 22:27 Dose: Not Given Insulin Human Regular (Novolin R) 0 unit SC ACHS [facility] PRN Reason: Protocol Last Admin: 03/18/17 22:08 Dose: 2 unit Latanoprost (Xalatan Opht) 0.02 ml OU HS [facility] Last Admin: 03/18/17 22:09 Dose: 0.02 ml Lisinopril (Zestril) 20 mg PO DAILY [facility] Pantoprazole Sodium (Protonix Inj) 40 mg IVP DAILY [facility] Last Admin: 03/18/17 10:45 Dose: 40 mg Rosuvastatin Calcium (Crestor) 10 mg PO HS [facility] Last Admin: 03/18/17 22:09 Dose: 10 mg Timolol Maleate (Timoptic 0.5% Oph Soln) 1 drop OU BID [facility] Last Admin: 03/18/17 18:14 Dose: 1 drop Vitamin B Complex/Vit C/Folic Acid (Nephro-Alonzo) 1 tab PO 0800 [facility] Last Admin: 03/18/17 10:46 Dose: 1 tab - Labs Labs: 03/17/17 09:52 03/17/17 09:52 PT 12.3 SECONDS (9.7-12.2) H 02/18/17 05:30 INR 1.1 02/18/17 05:30 APTT 30 SECONDS (21-34) 02/18/17 05:30 Assessment and Plan - Assessment and Plan (Free Text) Assessment: ESRD ON HD T T S ANEMIA OF CKD .. ON EPO MULTIPLE CO MORBIDITIES P : C/O CURRENT CARE C/O PRESENT MEDS
[2017-03-19] MEDS: metroNIDAZOLE IV 500 mg/100 ml 500 MG/100 ML BAG IVPB SCH ×3 (05:55→22:07)
[2017-03-19] MEDS: (Novolin R) Insulin Human Regular 100 units/ml vial SC SCH ×3 (08:36→18:09)
[2017-03-19] MEDS: Multivitamin Vitamin B Complex (Nephro-Vite) Tab PO SCH (08:37)
--- NOTE | 2017-03-19 09:20 | CP.PCM.PN ---
Subjective - Date & Time of Evaluation Date of Evaluation: 03/19/17 Time of Evaluation: 09:20 - Subjective Subjective: Medicine Progress Note for Dr. Myrick HPI: Patient seen and examined at bedside. Moans when leg is manipulated. Besides that she looks comfortable. Does not respond appropriately to questions. Family at bedside. Objective - Vital Signs/Intake and Output Vital Signs (last 24 hours): Temp Pulse Resp BP Pulse Ox 97.5 F L 77 20 135/60 99 03/18/17 23:55 03/18/17 23:55 03/18/17 23:55 03/18/17 23:55 03/18/17 23:55 - Medications Medications: Current Medications Amlodipine Besylate (Norvasc) 5 mg PO DAILY [facility] Last Admin: 03/18/17 10:46 Dose: 5 mg Brimonidine Tartrate (Alphagan 0.2% Opht) 1 ml OU TID [facility] Last Admin: 03/18/17 18:15 Dose: 1 drop Collagenase (Santyl) 0 gm TOP DAILY [facility] Last Admin: 03/18/17 10:47 Dose: Not Given Dextrose (Dextrose 50% Inj) 0 ml IV STAT PRN; Protocol PRN Reason: Hyglycemia Protocol Dextrose (Glutose 15) 0 gm PO ONCE PRN; Protocol PRN Reason: Hypoglycemia Protocol Epoetin Maxwell (Procrit) 10,000 unit IV TTS [facility] Last Admin: 03/17/17 10:58 Dose: 10,000 unit Glucagon (Glucagen Diagnostic Kit) 0 mg IM STAT PRN; Protocol PRN Reason: Hypoglycemia Protocol Hydromorphone HCl (Dilaudid) 0.5 mg IVP Q4H PRN PRN Reason: Pain, severe (8-10) Last Admin: 03/18/17 22:09 Dose: 0.5 mg Fluconazole (Diflucan Iv 200 Mg/100 Ml Ns) 100 mls @ 100 mls/hr IVPB DAILY [facility] Last Admin: 03/18/17 10:47 Dose: 100 mls/hr Vancomycin/Sodium Chloride (Vancomycin 1 Gm/Ns 200 Ml) 1 gm in 200 mls @ 166.7 mls/hr IVPB MWF [facility] Stop: 03/21/17 09:01 Last Admin: 03/18/17 10:46 Dose: 166.7 mls/hr Metronidazole (Flagyl) 500 mg in 100 mls @ 100 mls/hr IVPB Q8 [facility] Last Admin: 03/19/17 05:55 Dose: 100 mls/hr Insulin Glargine (Lantus) 25 unit SC HS [facility] Last Admin: 03/16/17 22:27 Dose: Not Given Insulin Human Regular (Novolin R) 0 unit SC ACHS [facility] PRN Reason: Protocol Last Admin: 03/19/17 08:36 Dose: 2 unit Latanoprost (Xalatan Opht) 0.02 ml OU HS [facility] Last Admin: 03/18/17 22:09 Dose: 0.02 ml Lisinopril (Zestril) 20 mg PO DAILY [facility] Pantoprazole Sodium (Protonix Inj) 40 mg IVP DAILY [facility] Last Admin: 03/18/17 10:45 Dose: 40 mg Rosuvastatin Calcium (Crestor) 10 mg PO HS [facility] Last Admin: 03/18/17 22:09 Dose: 10 mg Timolol Maleate (Timoptic 0.5% Oph Soln) 1 drop OU BID [facility] Last Admin: 03/18/17 18:14 Dose: 1 drop Vitamin B Complex/Vit C/Folic Acid (Nephro-Alonzo) 1 tab PO 0800 [facility] Last Admin: 03/19/17 08:37 Dose: 1 tab - Labs Labs: 03/17/17 09:52 03/17/17 09:52 PT 12.3 SECONDS (9.7-12.2) H 02/18/17 05:30 INR 1.1 02/18/17 05:30 APTT 30 SECONDS (21-34) 02/18/17 05:30 - Additional Findings Additional findings: - Constitutional Appears: Chronically Ill - Head Exam Head Exam: ATRAUMATIC, NORMAL INSPECTION, NORMOCEPHALIC - Eye Exam Eye Exam: EOMI - ENT Exam Additional comments: NGT - Respiratory Exam Respiratory Exam: Clear to Ausculation Bilateral, NORMAL BREATHING PATTERN - Cardiovascular Exam Cardiovascular Exam: REGULAR RHYTHM - GI/Abdominal Exam GI & Abdominal Exam: Soft, Normal Bowel Sounds. absent: Distended, Tenderness - Extremities Exam Additional comments: necrotic skin on plantar aspect of L. foot with healthy grnaulatyion tissue on the periphery. 95% tissue. dressing changed with 4x4s, dry, clean and intact - Neurological Exam Neurological Exam: Awake - Skin Skin Exam: Dry, Normal Color, Warm Assessment and Plan - Assessment and Plan (Free Text) Assessment: Non-Healing Left Heel Ulcer * Podiatry (Bennie) * recommended Left BKA * ID (Mangia) * Vascular ([place]) * recommended Left BKA * Santyl BID * Flagyl 500mg IV Q8 * Vanco 1g IV MWF * Dilaudid 0.5 mg IV Q4 PRN * Low ext arterial duplex (02/04/17) * occlusion R post tib artery, 50-75% stenosis right mid popliteal & proximal anterior tib arteries * occlusion of left post tib artery, >75% stenosis left proximal ant tibial artery, 50-75% stenosis left distal SFA & proximal popliteal a. * Abdominal Angiography 02/19/17 * Severe bilateral lower extremity arterial runoff with 1 vessel likely remaining patent at the right. None is continuously patent at the left lower extremity [id number]. Widely patent abdominal aorta and iliac arterial system with moderate right and [id number] left femoral arterial disease. Severe bilateral popliteal artery arterial disease. Left Pleural Effusion * Pulm (Alvaro) * CXR 03/11 - moderate left pleural effusion. C. Diff * Repeat C diff and stool culture on 02/28-negative Altered Mental Status * Neuro (Carla) * likely 2/2 to hypoglycemia * 03/16: Patient is still moaning and mumbling, with some speech. She has NGT in place. Tolerating feeds. * CT Head negative for Acute Infarction * Monitor Accuchecks qACHS and Q4H End Stage Renal Disease on Hemodialysis * Nephro (Hajal) * TTS Decreased oral intake * NGT pulled * Soft diet * PEG when more stable Hypertension * Norvasc 5 mg PO daily * Losartan 100 mg PO daily Anemia of Chronic Disease * Likely secondary to ESRD * IV ferlicet 125 * Procrit 10,000 units IV Diabetes * D50 as needed. * Lantus 25 units * Accuchecks * Hgb A1C 8.9 Prophylactic Measures * SCDs * Heparin 5000 units SC Q8H * 1:1 observation due to agitation. Patient tries to get out of bed. * Fall precautions * Palliative care consulted. Disposition: This patient has a very poor prognosis. The family wishes to try to save the leg despite multiple professional opinions on the necessity of an amputation. The family initially wished for the patient to go to [facility] where hyperbaric therapy is available in order to promote healing. They wished to be cared for by their personal hip hop performers Dr. Ware; however, Dr. Waer has become unavailable. So the family decided to remain at [facility] and attempt healing via vascular surgery to improve circulation and wound debridement of damaged tissue. They were repeatedly warned by multiple medical collector of the risks associated with refusing a BKA and attempting to salvage the foot. The family verbalized understanding of the risks but still decide against a BKA at this time.
[2017-03-19] MEDS: Brimonidine 0.2% Opth Sol (5ml) OU SCH ×3 (09:44→18:09)
[2017-03-19] MEDS: Collagenase 250 Units/gm Ointment(30 gm) TOP SCH (09:44)
[2017-03-19] MEDS: Fluconazole IV 200mg/100 ml NS 100 ML IVPB SCH (09:44)
[2017-03-19 10:52] LABS: EOS # 0.1 K/uL (0.0-0.7); MEAN CORPUSCULAR HGB CONC 31.3 g/dL (33.0-37.0); MONO # 0.7 K/uL (0.0-0.8); RED CELL DISTRIBUTION WIDTH 22.5 % (11.5-14.5); WHITE BLOOD COUNT 17.8 K/uL (4.8-10.8)
[2017-03-19 10:59] LABS: BASO % 0.3 % (0.0-2.0); EOS % 0.8 % (0.0-4.0); HEMATOCRIT 25.4 % (34.0-47.0); LYMPH # 1.4 K/uL (1.0-4.3); LYMPH % 7.6 % (20.0-40.0); MEAN CORPUSCULAR HEMOGLOBIN 29.6 pg (27.0-31.0); MEAN PLATELET VOLUME 9.4 fL (7.2-11.7); PLATELET COUNT 415 K/uL (130-400)
[2017-03-19 11:02] LABS: POTASSIUM 5.1 mmol/L (3.6-5.2)
[2017-03-19 11:05] LABS: MEAN CELL VOLUME 94.7 fL (81.0-99.0)
[2017-03-19 11:06] LABS: CALCIUM 7.2 mg/dl (8.6-10.4)
[2017-03-19 12:00] LABS: EOSINOPHIL 1 % (0-4); NEUTROPHIL 89 % (50-75); TOTAL CELLS COUNTED 100
--- NOTE | 2017-03-19 12:17 | CP.PCM.PN ---
Subjective - Date & Time of Evaluation Date of Evaluation: 03/19/17 Time of Evaluation: 12:14 - Subjective Subjective: Pt seen in HD F/U ulcer, anemia, dysphagia No report of hematuria, hemoptysis, CP SOB, abdom pain, diarrhea, RB, melena Objective - Vital Signs/Intake and Output Vital Signs (last 24 hours): Temp Pulse Resp BP Pulse Ox 98.3 F 87 16 145/61 96 03/19/17 12:04 03/19/17 12:04 03/19/17 12:04 03/19/17 12:04 03/19/17 10:05 Intake and Output: 03/19/17 03/19/17 06:59 18:59 Output Total 0 Balance 0 - Medications Medications: Current Medications Amlodipine Besylate (Norvasc) 5 mg PO DAILY [facility] Last Admin: 03/19/17 09:44 Dose: Not Given Brimonidine Tartrate (Alphagan 0.2% Opht) 1 ml OU TID [facility] Last Admin: 03/19/17 09:44 Dose: Not Given Collagenase (Santyl) 0 gm TOP DAILY [facility] Last Admin: 03/19/17 09:44 Dose: Not Given Dextrose (Dextrose 50% Inj) 0 ml IV STAT PRN; Protocol PRN Reason: Hyglycemia Protocol Dextrose (Glutose 15) 0 gm PO ONCE PRN; Protocol PRN Reason: Hypoglycemia Protocol Epoetin Maxwell (Procrit) 10,000 unit IV TTS [facility] Last Admin: 03/17/17 10:58 Dose: 10,000 unit Glucagon (Glucagen Diagnostic Kit) 0 mg IM STAT PRN; Protocol PRN Reason: Hypoglycemia Protocol Hydromorphone HCl (Dilaudid) 0.5 mg IVP Q4H PRN PRN Reason: Pain, severe (8-10) Last Admin: 03/18/17 22:09 Dose: 0.5 mg Fluconazole (Diflucan Iv 200 Mg/100 Ml Ns) 100 mls @ 100 mls/hr IVPB DAILY [facility] Last Admin: 03/19/17 09:44 Dose: Not Given Vancomycin/Sodium Chloride (Vancomycin 1 Gm/Ns 200 Ml) 1 gm in 200 mls @ 166.7 mls/hr IVPB MWF [facility] Stop: 03/21/17 09:01 Last Admin: 03/18/17 10:46 Dose: 166.7 mls/hr Metronidazole (Flagyl) 500 mg in 100 mls @ 100 mls/hr IVPB Q8 [facility] Last Admin: 03/19/17 05:55 Dose: 100 mls/hr Insulin Glargine (Lantus) 25 unit SC HS [facility] Last Admin: 03/16/17 22:27 Dose: Not Given Insulin Human Regular (Novolin R) 0 unit SC ACHS [facility] PRN Reason: Protocol Last Admin: 03/19/17 08:36 Dose: 2 unit Latanoprost (Xalatan Opht) 0.02 ml OU HS [facility] Last Admin: 03/18/17 22:09 Dose: 0.02 ml Lisinopril (Zestril) 20 mg PO DAILY [facility] Last Admin: 03/19/17 09:44 Dose: Not Given Pantoprazole Sodium (Protonix Inj) 40 mg IVP DAILY [facility] Last Admin: 03/19/17 09:44 Dose: Not Given Rosuvastatin Calcium (Crestor) 10 mg PO [facility] Last Admin: 03/18/17 22:09 Dose: 10 mg Timolol Maleate (Timoptic 0.5% Oph Soln) 1 drop OU BID [facility] Last Admin: 03/19/17 09:44 Dose: Not Given Vitamin B Complex/Vit C/Folic Acid (Nephro-Alonzo) 1 tab PO 0800 [facility] Last Admin: 03/19/17 08:37 Dose: 1 tab - Labs Labs: 03/19/17 10:56 03/19/17 08:17 PT 12.3 SECONDS (9.7-12.2) H 02/18/17 05:30 INR 1.1 02/18/17 05:30 APTT 30 SECONDS (21-34) 02/18/17 05:30 - Constitutional Appears: Non-toxic - Respiratory Exam Respiratory Exam: Decreased Breath Sounds - Cardiovascular Exam Cardiovascular Exam: RRR - GI/Abdominal Exam GI & Abdominal Exam: Soft, Normal Bowel Sounds. absent: Tenderness - Extremities Exam Extremities Exam: Pedal Edema - Neurological Exam Neurological Exam: Alert, Awake. absent: Oriented x3 Assessment and Plan (1) Elevated WBC count Assessment & Plan: 17 Status: Acute (2) PUD (peptic ulcer disease) Assessment & Plan: Stable. Continue GI meds Status: Acute (3) Change in mental status Status: Acute (4) Clostridium difficile colitis Assessment & Plan: treated Status: Acute (5) Dysphagia Status: Acute (6) End stage renal disease on dialysis Status: Acute (7) IDDM (insulin dependent diabetes mellitus) Status: Chronic (8) Heel ulcer Status: Acute (9) Pleural effusion Status: Acute (10) Pericardial effusion Status: Acute (11) Hyponatremia Status: Acute (12) UTI (urinary tract infection) Status: Acute (13) Nutrition disorder Assessment & Plan: Can not do PEG due to significant medical problems: sepsis, WBC, hyponatremia, 50% pl efffusion., pericardial effusion. REc- NG tube feedings. Family- holding surgery for heel ulcer Status: Acute
[2017-03-19] MEDS: Epoetin Alfa 10,000 unit/ml Dialysis IV SCH (12:52)
[2017-03-19] MEDS: Ferric Sodium Gluconat Complex 62.5 mg/5 ml Vial IVPB SCH (12:55)
--- NOTE | 2017-03-19 16:21 | CP.PCM.PN ---
Subjective - Date & Time of Evaluation Date of Evaluation: 03/19/17 Time of Evaluation: 13:00 - Subjective Subjective: SEEN ON RENAL F/U SEEN ON HD FEELS THE SAME ANEMIA GETTING WORSE Objective - Vital Signs/Intake and Output Vital Signs (last 24 hours): Temp Pulse Resp BP Pulse Ox 98.3 F 92 H 20 143/71 98 03/19/17 15:36 03/19/17 15:36 03/19/17 15:36 03/19/17 15:36 03/19/17 15:36 Intake and Output: 03/19/17 03/19/17 06:59 18:59 Output Total 0 Balance 0 - Medications Medications: Current Medications Amlodipine Besylate (Norvasc) 5 mg PO DAILY [facility] Last Admin: 03/19/17 09:44 Dose: Not Given Brimonidine Tartrate (Alphagan 0.2% Opht) 1 ml OU TID [facility] Last Admin: 03/19/17 14:06 Dose: 1 drop Collagenase (Santyl) 0 gm TOP DAILY [facility] Last Admin: 03/19/17 09:44 Dose: Not Given Dextrose (Dextrose 50% Inj) 0 ml IV STAT PRN; Protocol PRN Reason: Hyglycemia Protocol Dextrose (Glutose 15) 0 gm PO ONCE PRN; Protocol PRN Reason: Hypoglycemia Protocol Epoetin Maxwell (Procrit) 10,000 unit IV TTS [facility] Last Admin: 03/19/17 12:52 Dose: 10,000 unit Ferric Sodium Gluconate Complex (Ferrlecit) 125 mg IVPB TTS [facility] Stop: 03/28/17 10:01 Last Admin: 03/19/17 12:55 Dose: 125 mg Glucagon (Glucagen Diagnostic Kit) 0 mg IM STAT PRN; Protocol PRN Reason: Hypoglycemia Protocol Hydromorphone HCl (Dilaudid) 0.5 mg IVP Q4H PRN PRN Reason: Pain, severe (8-10) Last Admin: 03/18/17 22:09 Dose: 0.5 mg Fluconazole (Diflucan Iv 200 Mg/100 Ml Ns) 100 mls @ 100 mls/hr IVPB DAILY [facility] Last Admin: 03/19/17 09:44 Dose: Not Given Vancomycin/Sodium Chloride (Vancomycin 1 Gm/Ns 200 Ml) 1 gm in 200 mls @ 166.7 mls/hr IVPB MWF [facility] Stop: 03/21/17 09:01 Last Admin: 03/18/17 10:46 Dose: 166.7 mls/hr Metronidazole (Flagyl) 500 mg in 100 mls @ 100 mls/hr IVPB Q8 [facility] Last Admin: 03/19/17 14:05 Dose: 100 mls/hr Insulin Glargine (Lantus) 25 unit SC HS [facility] Last Admin: 03/16/17 22:27 Dose: Not Given Insulin Human Regular (Novolin R) 0 unit SC ACHS [facility] PRN Reason: Protocol Last Admin: 03/19/17 14:05 Dose: 8 unit Latanoprost (Xalatan Opht) 0.02 ml OU HS [facility] Last Admin: 03/18/17 22:09 Dose: 0.02 ml Lisinopril (Zestril) 20 mg PO DAILY [facility] Last Admin: 03/19/17 09:44 Dose: Not Given Pantoprazole Sodium (Protonix Inj) 40 mg IVP DAILY [facility] Last Admin: 03/19/17 09:44 Dose: Not Given Rosuvastatin Calcium (Crestor) 10 mg PO HS [facility] Last Admin: 03/18/17 22:09 Dose: 10 mg Timolol [facility] 1 [facility] OU BID [facility] Last Admin: 03/19/17 09:44 Dose: Not Given Vitamin B Complex/Vit C/Folic Acid (Nephro-Alonzo) 1 tab PO 0800 [facility] Last Admin: 03/19/17 08:37 Dose: 1 tab - Labs Labs: 03/19/17 10:56 03/19/17 08:17 PT 12.3 SECONDS (9.7-12.2) H 02/18/17 05:30 INR 1.1 02/18/17 05:30 APTT 30 SECONDS (21-34) 02/18/17 05:30 Assessment and Plan - Assessment and Plan (Free Text) Assessment: ESRD ON HD T T S .. TO BE C/O ANEMIA OF CKD .. 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
[2017-03-19] MEDS: HYDROmorphone 0.5 mg/0.5 ml ISec IVP PRN (22:05)
[2017-03-19] MEDS: Latanoprost 2.5 ml Opht Soln OU SCH (22:05)
[2017-03-20] MEDS: HYDROmorphone 0.5 mg/0.5 ml ISec IVP PRN ×4 (04:10→19:16)
[2017-03-20] MEDS: metroNIDAZOLE IV 500 mg/100 ml 500 MG/100 ML BAG IVPB SCH ×2 (05:57→14:24)
--- NOTE | 2017-03-20 07:59 | CP.PCM.PN ---
Subjective - Date & Time of Evaluation Date of Evaluation: 03/20/17 Time of Evaluation: 07:58 - Subjective Subjective: PGY-[address] Myrick. Patient seen and examined at bedside this AM. was at bedside and feeding patient. She does not respond appropriately to questions. She appears to be comfortable. A complete ROS was not possible. Objective - Vital Signs/Intake and Output Vital Signs (last 24 hours): Temp Pulse Resp BP Pulse Ox 97.6 F 78 20 119/54 L 99 03/20/17 07:10 03/20/17 07:10 03/20/17 07:10 03/20/17 07:10 03/20/17 07:10 - Medications Medications: Current Medications Amlodipine Besylate (Norvasc) 5 mg PO DAILY [facility] Last Admin: 03/19/17 09:44 Dose: Not Given Brimonidine Tartrate (Alphagan 0.2% Opht) 1 ml OU TID [facility] Last Admin: 03/19/17 18:09 Dose: 1 drop Collagenase (Santyl) 0 gm TOP DAILY [facility] Last Admin: 03/19/17 09:44 Dose: Not Given Dextrose (Dextrose 50% Inj) 0 ml IV STAT PRN; Protocol PRN Reason: Hyglycemia Protocol Dextrose (Glutose 15) 0 gm PO ONCE PRN; Protocol PRN Reason: Hypoglycemia Protocol Epoetin Maxwell (Procrit) 10,000 unit IV TTS [facility] Last Admin: 03/19/17 12:52 Dose: 10,000 unit Ferric Sodium Gluconate Complex (Ferrlecit) 125 mg IVPB TTS [facility] Stop: 03/28/17 10:01 Last Admin: 03/19/17 12:55 Dose: 125 mg Glucagon (Glucagen Diagnostic Kit) 0 mg IM STAT PRN; Protocol PRN Reason: Hypoglycemia Protocol Hydromorphone HCl (Dilaudid) 0.5 mg IVP Q4H PRN PRN Reason: Pain, severe (8-10) Last Admin: 03/20/17 04:10 Dose: 0.5 mg Fluconazole (Diflucan Iv 200 Mg/100 Ml Ns) 100 mls @ 100 mls/hr IVPB DAILY [facility] Last Admin: 03/19/17 09:44 Dose: Not Given Vancomycin/Sodium Chloride (Vancomycin 1 Gm/Ns 200 Ml) 1 gm in 200 mls @ 166.7 mls/hr IVPB MWF [facility] Stop: 03/21/17 09:01 Last Admin: 03/18/17 10:46 Dose: 166.7 mls/hr Metronidazole (Flagyl) 500 mg in 100 mls @ 100 mls/hr IVPB Q8 [facility] Last Admin: 03/20/17 05:57 Dose: 100 mls/hr Insulin Glargine (Lantus) 25 unit SC HS [facility] Last Admin: 03/16/17 22:27 Dose: Not Given Insulin Human Regular (Novolin R) 0 unit SC ACHS [facility] PRN Reason: Protocol Last Admin: 03/19/17 18:09 Dose: 8 unit Latanoprost (Xalatan Opht) 0.02 ml OU HS [facility] Last Admin: 03/19/17 22:05 Dose: 0.02 ml Lisinopril (Zestril) 20 mg PO DAILY [facility] Last Admin: 03/19/17 09:44 Dose: Not Given Pantoprazole Sodium (Protonix Inj) 40 mg IVP DAILY [facility] Last Admin: 03/19/17 09:44 Dose: Not Given Rosuvastatin Calcium (Crestor) 10 mg PO HS [facility] Last Admin: 03/19/17 22:05 Dose: 10 mg Timolol Maleate (Timoptic 0.5% [facility]) 1 drop OU BID [facility] Last Admin: 03/19/17 18:11 Dose: 1 drop Vitamin B Complex/Vit C/Folic Acid (Nephro-Alonzo) 1 tab PO 0800 [facility] Last Admin: 03/19/17 08:37 Dose: 1 tab - Labs Labs: 03/19/17 10:56 03/19/17 08:17 PT 12.3 SECONDS (9.7-12.2) H 02/18/17 05:30 INR 1.1 02/18/17 05:30 APTT 30 SECONDS (21-34) 02/18/17 05:30 - Additional Findings Additional findings: - Constitutional Appears: Chronically Ill - Head Exam Head Exam: ATRAUMATIC, NORMAL INSPECTION, NORMOCEPHALIC - Eye Exam Eye Exam: EOMI - ENT Exam Additional comments: NGT - Respiratory Exam Respiratory Exam: Clear to Ausculation Bilateral, NORMAL BREATHING PATTERN - Cardiovascular Exam Cardiovascular Exam: REGULAR RHYTHM - GI/Abdominal Exam GI & Abdominal Exam: Soft, Normal Bowel Sounds. absent: Distended, Tenderness - Extremities Exam Additional comments: necrotic skin on plantar aspect of L. foot with healthy grnaulatyion tissue on the periphery. 95% tissue. dressing changed yesterday 03/19/17 with 4x4s, dry, clean and intact - Neurological Exam Neurological Exam: Awake - Skin Skin Exam: Dry, Normal Color, Warm Assessment and Plan - Assessment and Plan (Free Text) Assessment: Non-Healing Left Heel Ulcer * Podiatry (Bennie) * recommended Left BKA * ID (Mangia) * Vascular (Ponderosa) * recommended Left BKA * Santyl BID * Flagyl 500mg IV Q8 * Vanco 1g IV MWF * Dilaudid 0.5 mg IV Q4 PRN * Low ext arterial duplex (02/04/17) * occlusion R post tib artery, 50-75% stenosis right mid popliteal & proximal anterior tib arteries * occlusion of left post tib artery, >75% stenosis left proximal ant tibial artery, 50-75% stenosis left distal SFA & proximal popliteal a. * Abdominal Angiography 02/19/17 * Severe bilateral lower extremity arterial runoff with 1 vessel likely remaining patent at the right. None is continuously patent at the left lower extremity [id number]. Widely patent abdominal aorta and iliac arterial system with moderate right and [id number] left femoral arterial disease. Severe bilateral popliteal artery arterial disease. Left Pleural Effusion * Pulm (Alvaro) * CXR 03/11 - moderate left pleural effusion. C. Diff * Repeat C diff and stool culture on 02/28-negative Altered Mental Status * Neuro (Carla) * likely 2/2 to hypoglycemia * CT Head negative for Acute Infarction * Monitor Accuchecks qACHS and Q4H End Stage Renal Disease on Hemodialysis * Nephro (Hajal) * TTS Decreased oral intake * NGT pulled * Soft diet * PEG when more stable Hypertension * Norvasc 5 mg PO daily * Losartan 100 mg PO daily Anemia of Chronic Disease * Likely secondary to ESRD * IV ferlicet 125 TTS * Procrit 10,000 units IV Diabetes * D50 as needed. * Lantus 25 units * Accuchecks * Hgb A1C 8.9 * Rosuvastatin 10mg po hs Prophylactic Measures * SCDs * Heparin 5000 units SC Q8H * 1:1 observation due to agitation. Patient tries to get out of bed. * Fall precautions * Palliative care consulted. Disposition: This patient has a very poor prognosis. The family wishes to try to save the leg despite multiple professional opinions on the necessity of an amputation. The family initially wished for the patient to go to [facility] where hyperbaric therapy is available in order to promote healing. They wished to be cared for by their personal application project leader Dr. Ware; however, Dr. Ware has become unavailable. So the family decided to remain at [facility] and attempt healing via vascular surgery to improve circulation and wound debridement of damaged tissue. They were repeatedly warned by multiple medical records custodian of the risks associated with refusing a BKA and attempting to salvage the foot. The family verbalized understanding of the risks but still decide against a BKA at this time.
[2017-03-20] MEDS: Multivitamin Vitamin B Complex (Nephro-Vite) Tab PO SCH (09:17)
[2017-03-20] MEDS: Vancomycin 1 gm/NS 200 ml 1 GM/200 ML BAG IVPB SCH (09:18)
[2017-03-20] MEDS: (Novolin R) Insulin Human Regular 100 units/ml vial SC SCH ×4 (09:22→21:52)
[2017-03-20] MEDS: Brimonidine 0.2% Opth Sol (5ml) OU SCH ×3 (10:52→18:33)
[2017-03-20] MEDS: Collagenase 250 Units/gm Ointment(30 gm) TOP SCH (10:52)
[2017-03-20] MEDS: Fluconazole IV 200mg/100 ml NS 100 ML IVPB SCH (10:54)
--- NOTE | 2017-03-20 13:54 | CP.PCM.PN ---
Subjective - Date & Time of Evaluation Date of Evaluation: 03/20/17 Time of Evaluation: 13:52 - Subjective Subjective: CC: follow up poor PO intake NGT out. Patient eating food brought from home. Family feeding her. Objective - Vital Signs/Intake and Output Vital Signs (last 24 hours): Temp Pulse Resp BP Pulse Ox 97.6 F 78 20 119/54 L 99 03/20/17 07:10 03/20/17 07:10 03/20/17 07:10 03/20/17 07:10 03/20/17 07:10 - Medications Medications: Current Medications Amlodipine Besylate (Norvasc) 5 mg PO DAILY [facility] Last Admin: 03/20/17 11:02 Dose: Not Given Brimonidine Tartrate (Alphagan 0.2% Opht) 1 ml OU TID [facility] Last Admin: 03/20/17 10:52 Dose: 1 drop Collagenase (Santyl) 0 gm TOP DAILY [facility] Last Admin: 03/19/17 09:44 Dose: Not Given Dextrose (Dextrose 50% Inj) 0 ml IV STAT PRN; Protocol PRN Reason: Hyglycemia Protocol Dextrose (Glutose 15) 0 gm PO ONCE PRN; Protocol PRN Reason: Hypoglycemia Protocol Epoetin Maxwell (Procrit) 10,000 unit IV TTS [facility] Last Admin: 03/19/17 12:52 Dose: 10,000 unit Ferric Sodium Gluconate Complex (Ferrlecit) 125 mg IVPB TTS [facility] Stop: 03/28/17 10:01 Last Admin: 03/19/17 12:55 Dose: 125 mg Glucagon (Glucagen Diagnostic Kit) 0 mg IM STAT PRN; Protocol PRN Reason: Hypoglycemia Protocol Hydromorphone HCl (Dilaudid) 0.5 mg IVP Q4H PRN PRN Reason: Pain, severe (8-10) Last Admin: 03/20/17 10:53 Dose: 0.5 mg Fluconazole (Diflucan Iv 200 Mg/100 Ml Ns) 100 mls @ 100 mls/hr IVPB DAILY [facility] Last Admin: 03/20/17 10:54 Dose: 100 mls/hr Vancomycin/Sodium Chloride (Vancomycin 1 Gm/Ns 200 Ml) 1 gm in 200 mls @ 166.7 mls/hr IVPB MWF [facility] Stop: 03/21/17 09:01 Last Admin: 03/20/17 09:18 Dose: 166.7 mls/hr Metronidazole (Flagyl) 500 mg in 100 mls @ 100 mls/hr IVPB Q8 [facility] Last Admin: 03/20/17 05:57 Dose: 100 mls/hr Insulin Glargine (Lantus) 25 unit SC HS [facility] Last Admin: 03/16/17 22:27 Dose: Not Given Insulin Human Regular (Novolin R) 0 unit SC ACHS [facility] PRN Reason: Protocol Last Admin: 03/20/17 13:26 Dose: 10 unit Latanoprost (Xalatan Opht) 0.02 ml OU HS [facility] Last Admin: 03/19/17 22:05 Dose: 0.02 ml Lisinopril (Zestril) 20 mg PO DAILY [facility] Last Admin: 03/20/17 10:54 Dose: 20 mg Pantoprazole Sodium (Protonix Inj) 40 mg IVP DAILY [facility] Last Admin: 03/20/17 10:52 Dose: 40 mg Rosuvastatin Calcium (Crestor) 10 mg PO HS [facility] Last Admin: 03/19/17 22:05 Dose: 10 mg Timolol Maleate (Timoptic 0.5% Oph Soln) 1 drop OU BID [facility] Last Admin: 03/20/17 10:53 Dose: 1 drop Vitamin B Complex/Vit C/Folic Acid (Nephro-Alonzo) 1 tab PO 0800 [facility] Last Admin: 03/20/17 09:17 Dose: 1 tab - Labs Labs: 03/19/17 10:56 03/19/17 08:17 PT 12.3 SECONDS (9.7-12.2) H 02/18/17 05:30 INR 1.1 02/18/17 05:30 APTT 30 SECONDS (21-34) 02/18/17 05:30 - Constitutional Appears: Chronically Ill - Head Exam Head Exam: NORMOCEPHALIC - Respiratory Exam Respiratory Exam: Clear to Ausculation Bilateral - Cardiovascular Exam Cardiovascular Exam: REGULAR RHYTHM - GI/Abdominal Exam GI & Abdominal Exam: Soft. absent: Distended, Tenderness Assessment and Plan (1) Clostridium difficile colitis Assessment & Plan: Clinically resolved Status: Acute (2) Change in mental status Status: Acute (3) End stage renal disease on dialysis Status: Acute (4) Heel ulcer Status: Acute (5) IDDM (insulin dependent diabetes mellitus) Status: Chronic (6) Dysphagia Assessment & Plan: Witnessed to be eating/swallowing food from home. Continue to monitor Status: Acute (7) PUD (peptic ulcer disease) Assessment & Plan: Clinically stable Continue PPI Status: Acute
[2017-03-20] MEDS: Latanoprost 2.5 ml Opht Soln OU SCH (21:37)
[2017-03-21] MEDS: metroNIDAZOLE IV 500 mg/100 ml 500 MG/100 ML BAG IVPB SCH ×5 (02:03→21:02)
[2017-03-21] MEDS: HYDROmorphone 0.5 mg/0.5 ml ISec IM PRN ×3 (02:25→18:13)
--- NOTE | 2017-03-21 02:49 | CP.PCM.PN ---
<Trevor Elkins - Last Filed: 03/21/17 02:47> Subjective - Date & Time of Evaluation Date of Evaluation: 03/21/17 Time of Evaluation: 02:47 - Subjective Subjective: Medicine Progress Note for Dr. Myrick HPI: Patient seen and examined at bedside this AM. was at bedside and feeding patient. She does not respond appropriately to questions. She appears to be comfortable. A complete ROS was not possible. Objective - Vital Signs/Intake and Output Vital Signs (last 24 hours): Temp Pulse Resp BP Pulse Ox 98.5 F 80 20 122/53 L 96 03/20/17 23:32 03/20/17 23:32 03/20/17 23:32 03/20/17 23:32 03/20/17 23:32 Intake and Output: 03/20/17 03/21/17 18:59 06:59 Intake Total 710 Balance 710 - Medications Medications: Current Medications Amlodipine Besylate (Norvasc) 5 mg PO DAILY [facility] Last Admin: 03/20/17 11:02 Dose: Not Given Brimonidine Tartrate (Alphagan 0.2% Opht) 1 ml OU TID [facility] Last Admin: 03/20/17 18:33 Dose: 1 drop Collagenase (Santyl) 0 gm TOP DAILY [facility] Last Admin: 03/20/17 10:52 Dose: Not Given Dextrose (Dextrose 50% Inj) 0 ml IV STAT PRN; Protocol PRN Reason: Hyglycemia Protocol Dextrose (Glutose 15) 0 gm PO ONCE PRN; Protocol PRN Reason: Hypoglycemia Protocol Epoetin Maxwell (Procrit) 10,000 unit IV TTS [facility] Last Admin: 03/19/17 12:52 Dose: 10,000 unit Ferric Sodium Gluconate Complex (Ferrlecit) 125 mg IVPB TTS [facility] Stop: 03/28/17 10:01 Last Admin: 03/19/17 12:55 Dose: 125 mg Glucagon (Glucagen Diagnostic Kit) 0 mg IM STAT PRN; Protocol PRN Reason: Hypoglycemia Protocol Hydromorphone HCl (Dilaudid) 0.5 mg IM Q4H PRN PRN Reason: Pain, severe (8-10) Last Admin: 03/21/17 02:25 Dose: 0.5 mg Fluconazole (Diflucan Iv 200 Mg/100 Ml Ns) 100 mls @ 100 mls/hr IVPB DAILY [facility] Last Admin: 03/20/17 10:54 Dose: 100 mls/hr Vancomycin/Sodium Chloride (Vancomycin 1 Gm/Ns 200 Ml) 1 gm in 200 mls @ 166.7 mls/hr IVPB MWF [facility] Stop: 03/21/17 09:01 Last Admin: 03/20/17 09:18 Dose: 166.7 mls/hr Metronidazole (Flagyl) 500 mg in 100 mls @ 100 mls/hr IVPB Q8 [facility] Last Admin: 03/21/17 02:03 Dose: Not Given Insulin Glargine (Lantus) 25 unit SC HS [facility] Last Admin: 03/16/17 22:27 Dose: Not Given Insulin Human Regular (Novolin R) 0 unit SC ACHS [facility] PRN Reason: Protocol Last Admin: 03/20/17 21:52 Dose: 2 unit Latanoprost (Xalatan Opht) 0.02 ml OU HS [facility] Last Admin: 03/20/17 21:37 Dose: 0.02 ml Lisinopril (Zestril) 20 mg PO DAILY [facility] Last Admin: 03/20/17 10:54 Dose: 20 mg Pantoprazole Sodium (Protonix Inj) 40 mg IVP DAILY [facility] Last Admin: 03/20/17 10:52 Dose: 40 mg Rosuvastatin Calcium (Crestor) 10 mg PO HS [facility] Last Admin: 03/20/17 21:35 Dose: 10 mg Timolol Maleate (Timoptic 0.5% Oph Soln) 1 drop OU BID [facility] Last Admin: 03/20/17 18:33 Dose: 1 drop Vitamin B Complex/Vit C/Folic Acid (Nephro-Alonzo) 1 tab PO 0800 [facility] Last Admin: 03/20/17 09:17 Dose: 1 tab - Labs Labs: 03/19/17 10:56 03/19/17 08:17 PT 12.3 SECONDS (9.7-12.2) H 02/18/17 05:30 INR 1.1 02/18/17 05:30 APTT 30 SECONDS (21-34) 02/18/17 05:30 - Additional Findings Additional findings: - Constitutional Appears: Chronically Ill - Head Exam Head Exam: ATRAUMATIC, NORMAL INSPECTION, NORMOCEPHALIC - Eye Exam Eye Exam: EOMI - ENT Exam Additional comments: NGT - Respiratory Exam Respiratory Exam: Clear to Ausculation Bilateral, NORMAL BREATHING PATTERN - Cardiovascular Exam Cardiovascular Exam: REGULAR RHYTHM - GI/Abdominal Exam GI & Abdominal Exam: Soft, Normal Bowel Sounds. absent: Distended, Tenderness - Extremities Exam Additional comments: necrotic skin on plantar aspect of L. foot with healthy grnaulatyion tissue on the periphery. 95% tissue. dressing changed yesterday 03/19/17 with 4x4s, dry, clean and intact Assessment and Plan - Assessment and Plan (Free Text) Assessment: Non-Healing Left Heel Ulcer * Podiatry (Bennie) * recommended Left BKA * ID (Mangia) * Vascular (Tennyson) * recommended Left BKA * Santyl BID * Flagyl 500mg IV Q8 * Vanco 1g IV MWF * Dilaudid 0.5 mg IV Q4 PRN * Low ext arterial duplex (02/04/17) * occlusion R post tib artery, 50-75% stenosis right mid popliteal & proximal anterior tib arteries * occlusion of left post tib artery, >75% stenosis left proximal ant tibial artery, 50-75% stenosis left distal SFA & proximal popliteal a. * Abdominal Angiography 02/19/17 * Severe bilateral lower extremity arterial runoff with 1 vessel likely remaining patent at the right. None is continuously patent at the left lower extremity [id number]. Widely patent abdominal aorta and iliac arterial system with moderate right and [id number] left femoral arterial disease. Severe bilateral popliteal artery arterial disease. Left Pleural Effusion * Pulm (Alvaro) * CXR 03/11 - moderate left pleural effusion. C. Diff * Repeat C diff and stool culture on 02/28-negative Altered Mental Status * Neuro (Carla) * likely 2/2 to hypoglycemia * CT Head negative for Acute Infarction * Monitor Accuchecks qACHS and Q4H End Stage Renal Disease on Hemodialysis * Nephro (Hajal) * TTS Decreased oral intake * NGT pulled * Soft diet * GI does not recommend PEG procedure (see GI 03/19/17 note) due to significant medical problems (sepsis, WBC, hyponatremia, 50% pl efffusion., pericardial effusion). Recommend NG tube feeding. Hypertension * Norvasc 5 mg PO daily * Losartan 100 mg PO daily Anemia of Chronic Disease * Likely secondary to ESRD * IV ferlicet 125 TTS * Procrit 10,000 units IV Diabetes * D50 as needed. * Lantus 25 units * Accuchecks * Hgb A1C 8.9 * Rosuvastatin 10mg po hs Prophylactic Measures * SCDs * Heparin 5000 units SC Q8H * 1:1 observation due to agitation. Patient tries to get out of bed. * Fall precautions * Palliative care consulted. Disposition: This patient has a very poor prognosis. The family wishes to try to save the leg despite multiple professional opinions on the necessity of an amputation. The family initially wished for the patient to go to [facility] where hyperbaric therapy is available in order to promote healing. They wished to be cared for by their personal information assurance analyst Dr. Ware; however, Dr. Ware has become unavailable. So the family decided to remain at [facility] and attempt healing via vascular surgery to improve circulation and wound debridement of damaged tissue. They were repeatedly warned by multiple er medical technician of the risks associated with refusing a BKA and attempting to salvage the foot. The family verbalized understanding of the risks but still decide against a BKA at this time. <Benson Myrick Jr. - Last Filed: 03/29/17 13:09> Objective - Vital Signs/Intake and Output Vital Signs (last 24 hours): Temp Pulse Resp BP Pulse Ox 98.5 F 90 30 H 123/46 L 98 03/29/17 07:00 03/29/17 10:00 03/29/17 10:00 03/29/17 08:14 03/29/17 10:00 Intake and Output: 03/29/17 03/29/17 06:59 18:59 Intake Total Balance - Medications Medications: Current Medications Acetaminophen (Tylenol 325mg Tab) 650 mg PO Q6 PRN PRN Reason: Pain, moderate (4-7) Last Admin: 03/28/17 13:21 Dose: 650 mg Brimonidine Tartrate (Alphagan 0.2% Opht) 1 ml OU TID [facility] Last Admin: 03/29/17 09:39 Dose: 1 drop Collagenase (Santyl) 0 gm TOP DAILY [facility] Last Admin: 03/29/17 09:59 Dose: 1 applic Dextrose (Dextrose 50% Inj) 0 ml IV STAT PRN; Protocol PRN Reason: Hyglycemia Protocol Dextrose (Glutose 15) 0 gm PO ONCE PRN; Protocol PRN Reason: Hypoglycemia Protocol Epoetin Maxwell (Procrit) 10,000 unit IV TTS [facility] Last Admin: 03/28/17 10:33 Dose: 10,000 unit Ergocalciferol (Drisdol 50,000 Intl Units Cap) 1 cap PO Q7D [facility] Last Admin: 03/24/17 00:47 Dose: 1 cap Glucagon (Glucagen Diagnostic Kit) 0 mg IM STAT PRN; Protocol PRN Reason: Hypoglycemia Protocol Heparin Sodium (Porcine) (Heparin) 5,000 units SC Q12 [facility] Last Admin: 03/29/17 09:41 Dose: 5,000 units Vancomycin/Sodium Chloride (Vancomycin 1 Gm/Ns 200 Ml) 1 gm in 200 mls @ 133.333 mls/hr IVPB TTS [facility] Last Admin: 03/28/17 13:26 Dose: 133.333 mls/hr Insulin Glargine (Lantus) 25 unit SC HS [facility] Last Admin: 03/16/17 22:27 Dose: Not Given Insulin Human Regular (Novolin R) 0 unit SC ACHS ELINA PRN Reason: Protocol Last Admin: 03/29/17 12:20 Dose: 4 unit Latanoprost (Xalatan Opht) 0.02 ml OU HS [facility] Last Admin: 03/28/17 21:32 Dose: 0.02 ml Lisinopril (Zestril) 20 mg PO DAILY [facility] Last Admin: 03/29/17 10:03 Dose: 20 mg Pantoprazole Sodium (Protonix Ec Tab) 40 mg PO DAILY [facility] Last Admin: 03/29/17 09:59 Dose: 40 mg Rosuvastatin Calcium (Crestor) 10 mg PO HS [facility] Last Admin: 03/28/17 21:32 Dose: 10 mg Timolol Maleate (Timoptic 0.5% Ophth Soln) 1 drop OU BID [facility] Last Admin: 03/29/17 09:38 Dose: 1 drop Vitamin B Complex/Vit C/Folic Acid (Nephro-Alonzo) 1 tab PO 0800 [facility] Last Admin: 03/29/17 08:09 Dose: 1 tab - Labs Labs: 03/29/17 06:45 03/29/17 06:45 PT 12.3 SECONDS (9.7-12.2) H 02/18/17 05:30 INR 1.1 02/18/17 05:30 APTT 30 SECONDS (21-34) 02/18/17 05:30 Attending/Attestation - Attestation I have personally seen and examined this patient.: Yes I have fully participated in the care of the patient.: Yes I have reviewed all pertinent clinical information, including history, physical exam and plan: Yes Notes (Text): 03/29/17 13:09 Agree with resident note and plan of care
[2017-03-21] MEDS: Multivitamin Vitamin B Complex (Nephro-Vite) Tab PO SCH (08:33)
[2017-03-21] MEDS: (Novolin R) Insulin Human Regular 100 units/ml vial SC SCH ×4 (08:33→21:47)
[2017-03-21] MEDS: Ferric Sodium Gluconat Complex 62.5 mg/5 ml Vial IVPB SCH (09:55)
[2017-03-21] MEDS: Epoetin Alfa 10,000 unit/ml Dialysis IV SCH (09:56)
[2017-03-21] MEDS: Collagenase 250 Units/gm Ointment(30 gm) TOP SCH (10:00)
[2017-03-21] MEDS: Fluconazole IV 200mg/100 ml NS 100 ML IVPB SCH (10:00)
[2017-03-21 10:08] LABS: BASO # 0.1 K/uL (0.0-0.2); BASO % 0.4 % (0.0-2.0); EOS # 0.1 K/uL (0.0-0.7); EOS % 0.6 % (0.0-4.0); HEMATOCRIT 27.1 % (34.0-47.0); LYMPH # 1.1 K/uL (1.0-4.3); LYMPH % 6.5 % (20.0-40.0); MEAN CELL VOLUME 96.3 fL (81.0-99.0); MEAN CORPUSCULAR HEMOGLOBIN 29.5 pg (27.0-31.0); MEAN CORPUSCULAR HGB CONC 30.7 g/dL (33.0-37.0); MONO # 0.6 K/uL (0.0-0.8); MONO % 3.7 % (0.0-10.0); PLATELET COUNT 512 K/uL (130-400); RED CELL DISTRIBUTION WIDTH 21.7 % (11.5-14.5); WHITE BLOOD COUNT 17.4 K/uL (4.8-10.8)
[2017-03-21] MEDS: Brimonidine 0.2% Opth Sol (5ml) OU SCH ×3 (11:00→18:13)
--- NOTE | 2017-03-21 11:34 | CP.PCM.PN ---
Subjective - Date & Time of Evaluation Date of Evaluation: 03/20/17 Time of Evaluation: 13:00 - Subjective Subjective: SEEN ON RENAL F/U NO CHANGE IN CLINICAL CONDITION NGT IS OUT .. IS FEEDING PT ON BED SIDE Objective - Vital Signs/Intake and Output Vital Signs (last 24 hours): Temp Pulse Resp BP Pulse Ox 98.2 F 91 H 16 94/35 L 96 03/21/17 09:25 03/21/17 09:25 03/21/17 09:25 03/21/17 10:55 03/21/17 09:25 - Medications Medications: Current Medications Amlodipine Besylate (Norvasc) 5 mg PO DAILY [facility] Last Admin: 03/20/17 11:02 Dose: Not Given Brimonidine Tartrate (Alphagan 0.2% Opht) 1 ml OU TID [facility] Last Admin: 03/20/17 18:33 Dose: 1 drop Collagenase (Santyl) 0 gm TOP DAILY [facility] Last Admin: 03/20/17 10:52 Dose: Not Given Dextrose (Dextrose 50% Inj) 0 ml IV STAT PRN; Protocol PRN Reason: Hyglycemia Protocol Dextrose (Glutose 15) 0 gm PO ONCE PRN; Protocol PRN Reason: Hypoglycemia Protocol Epoetin Maxwell (Procrit) 10,000 unit IV TTS [facility] Last Admin: 03/21/17 09:56 Dose: 10,000 unit Ferric Sodium Gluconate Complex (Ferrlecit) 125 mg IVPB TTS [facility] Stop: 03/28/17 10:01 Last Admin: 03/21/17 09:55 Dose: 125 mg Glucagon (Glucagen Diagnostic Kit) 0 mg IM STAT PRN; Protocol PRN Reason: Hypoglycemia Protocol Hydromorphone HCl (Dilaudid) 0.5 mg IM Q4H PRN PRN Reason: Pain, severe (8-10) Last Admin: 03/21/17 08:32 Dose: 0.5 mg Fluconazole (Diflucan Iv 200 Mg/100 Ml Ns) 100 mls @ 100 mls/hr IVPB DAILY [facility] Last Admin: 03/20/17 10:54 Dose: 100 mls/hr Metronidazole (Flagyl) 500 mg in 100 mls @ 100 mls/hr IVPB Q8 [facility] Last Admin: 03/21/17 06:27 Dose: Not Given Insulin Glargine (Lantus) 25 unit SC HS [facility] Last Admin: 03/16/17 22:27 Dose: Not Given Insulin Human Regular (Novolin R) 0 unit SC ACHS [facility] PRN Reason: Protocol Last Admin: 03/21/17 08:33 Dose: 12 unit Latanoprost (Xalatan Opht) 0.02 ml OU HS [facility] Last Admin: 03/20/17 21:37 Dose: 0.02 ml Lisinopril (Zestril) 20 mg PO DAILY [facility] Last Admin: 03/20/17 10:54 Dose: 20 mg Pantoprazole Sodium (Protonix Inj) 40 mg IVP DAILY [facility] Last Admin: 03/20/17 10:52 Dose: 40 mg Rosuvastatin Calcium (Crestor) 10 mg PO HS [facility] Last Admin: 03/20/17 21:35 Dose: 10 mg Timolol Maleate (Timoptic 0.5% Oph Soln) 1 drop OU BID [facility] Last Admin: 03/20/17 18:33 Dose: 1 drop Vitamin B Complex/Vit C/Folic Acid (Nephro-Alonzo) 1 tab PO 0800 [facility] Last Admin: 03/21/17 08:33 Dose: 1 tab - Labs Labs: 03/21/17 09:59 03/19/17 08:17 PT 12.3 SECONDS (9.7-12.2) H 02/18/17 05:30 INR 1.1 02/18/17 05:30 APTT 30 SECONDS (21-34) 02/18/17 05:30 Assessment and Plan - Assessment and Plan (Free Text) Assessment: ESRD ON HD T T S .. ANEMIA OF CKD .. R/O OTHER CAUSES .. WILL WATCH CLOSELY C/O CURRENT CARE
[2017-03-21 11:43] LABS: NEUTROPHIL 90 % (50-75); TOTAL CELLS COUNTED 100
[2017-03-21 12:17] LABS: POTASSIUM 3.6 mmol/L (3.6-5.2)
[2017-03-21 12:20] LABS: CALCIUM 7.4 mg/dl (8.6-10.4)
--- NOTE | 2017-03-21 14:15 | CP.PCM.PN ---
Subjective - Date & Time of Evaluation Date of Evaluation: 03/21/17 Time of Evaluation: 14:13 - Subjective Subjective: on hd this am vss alize proc cont rx and support. discussed w family at bedside Objective - Vital Signs/Intake and Output Vital Signs (last 24 hours): Temp Pulse Resp BP Pulse Ox 97.6 F 90 20 133/76 100 03/21/17 12:50 03/21/17 12:50 03/21/17 12:50 03/21/17 12:50 03/21/17 12:50 - Medications Medications: Current Medications Amlodipine Besylate (Norvasc) 5 mg PO DAILY [facility] Last Admin: 03/21/17 13:03 Dose: 5 mg Brimonidine Tartrate (Alphagan 0.2% Opht) 1 ml OU TID [facility] Last Admin: 03/21/17 13:04 Dose: 1 drop Collagenase (Santyl) 0 gm TOP DAILY [facility] Last Admin: 03/20/17 10:52 Dose: Not Given Dextrose (Dextrose 50% Inj) 0 ml IV STAT PRN; Protocol PRN Reason: Hyglycemia Protocol Dextrose (Glutose 15) 0 gm PO ONCE PRN; Protocol PRN Reason: Hypoglycemia Protocol Epoetin Maxwell (Procrit) 10,000 unit IV TTS [facility] Last Admin: 03/21/17 09:56 Dose: 10,000 unit Ferric Sodium Gluconate Complex (Ferrlecit) 125 mg IVPB TTS [facility] Stop: 03/28/17 10:01 Last Admin: 03/21/17 09:55 Dose: 125 mg Glucagon (Glucagen Diagnostic Kit) 0 mg IM STAT PRN; Protocol PRN Reason: Hypoglycemia Protocol Hydromorphone HCl (Dilaudid) 0.5 mg IM Q4H PRN PRN Reason: Pain, severe (8-10) Last Admin: 03/21/17 08:32 Dose: 0.5 mg Fluconazole (Diflucan Iv 200 Mg/100 Ml Ns) 100 mls @ 100 mls/hr IVPB DAILY [facility] Last Admin: 03/20/17 10:54 Dose: 100 mls/hr Metronidazole (Flagyl) 500 mg in 100 mls @ 100 mls/hr IVPB Q8 [facility] Last Admin: 03/21/17 13:03 Dose: 100 mls/hr Insulin Glargine (Lantus) 25 unit SC HS [facility] Last Admin: 03/16/17 22:27 Dose: Not Given Insulin Human Regular (Novolin R) 0 unit SC ACHS [facility] PRN Reason: Protocol Last Admin: 03/21/17 13:03 Dose: 6 unit Latanoprost (Xalatan Opht) 0.02 ml OU HS [facility] Last Admin: 03/20/17 21:37 Dose: 0.02 ml Lisinopril (Zestril) 20 mg PO DAILY [facility] Last Admin: 03/21/17 13:03 Dose: 20 mg Pantoprazole Sodium (Protonix Inj) 40 mg IVP DAILY [facility] Last Admin: 03/21/17 13:02 Dose: 40 mg Rosuvastatin Calcium (Crestor) 10 mg PO HS [facility] Last Admin: 03/20/17 21:35 Dose: 10 mg Timolol Maleate (Timoptic 0.5% Oph Soln) 1 drop OU BID [facility] Last Admin: 03/21/17 13:02 Dose: 1 drop Vitamin B Complex/Vit C/Folic Acid (Nephro-Alonzo) 1 tab PO 0800 [facility] Last Admin: 03/21/17 08:33 Dose: 1 tab - Labs Labs: 03/21/17 09:59 03/21/17 09:59 PT 12.3 SECONDS (9.7-12.2) H 02/18/17 05:30 INR 1.1 02/18/17 05:30 APTT 30 SECONDS (21-34) 02/18/17 05:30 - Constitutional Appears: Non-toxic - Head Exam Head Exam: NORMAL INSPECTION - Eye Exam Eye Exam: Normal appearance - ENT Exam ENT Exam: Mucous Membranes Moist - Neck Exam Neck Exam: Full ROM - Respiratory Exam Respiratory Exam: Clear to Ausculation Bilateral - Cardiovascular Exam Cardiovascular Exam: REGULAR RHYTHM - GI/Abdominal Exam GI & Abdominal Exam: Soft - Extremities Exam Extremities Exam: Full ROM - Back Exam Back Exam: NORMAL INSPECTION - Neurological Exam Neurological Exam: Alert, Awake - Psychiatric Exam Psychiatric exam: Flat Affect - Skin Skin Exam: Dry, Warm Assessment and Plan - Assessment and Plan (Free Text) Assessment: [id number] Plan: hd tts
[2017-03-21] MEDS: Latanoprost 2.5 ml Opht Soln OU SCH (21:47)
--- NOTE | 2017-03-22 01:19 | CP.PCM.PN ---
<Trevor Elkins - Last Filed: 03/22/17 01:17> Subjective - Date & Time of Evaluation Date of Evaluation: 03/22/17 Time of Evaluation: 01:17 - Subjective Subjective: Medicine Progress Note for Dr. Myrick HPI: Patient seen and examined at bedside this AM. was at bedside and feeding patient. She does not respond appropriately to questions. She appears to be comfortable. A complete ROS was not possible. Objective - Vital Signs/Intake and Output Vital Signs (last 24 hours): Temp Pulse Resp BP Pulse Ox 98 F 81 20 133/72 98 03/21/17 15:50 03/21/17 15:50 03/21/17 15:50 03/21/17 15:50 03/21/17 15:50 Intake and Output: 03/21/17 03/22/17 18:59 06:59 Intake Total 400 Balance 400 - Medications Medications: Current Medications Amlodipine Besylate (Norvasc) 5 mg PO DAILY [facility] Last Admin: 03/21/17 13:03 Dose: 5 mg Brimonidine Tartrate (Alphagan 0.2% Opht) 1 ml OU TID [facility] Last Admin: 03/21/17 18:13 Dose: 1 drop Collagenase (Santyl) 0 gm TOP DAILY [facility] Last Admin: 03/21/17 10:00 Dose: Not Given Dextrose (Dextrose 50% Inj) 0 ml IV STAT PRN; Protocol PRN Reason: Hyglycemia Protocol Dextrose (Glutose 15) 0 gm PO ONCE PRN; Protocol PRN Reason: Hypoglycemia Protocol Epoetin Maxwell (Procrit) 10,000 unit IV TTS [facility] Last Admin: 03/21/17 09:56 Dose: 10,000 unit Ferric Sodium Gluconate Complex (Ferrlecit) 125 mg IVPB TTS [facility] Stop: 03/28/17 10:01 Last Admin: 03/21/17 09:55 Dose: 125 mg Glucagon (Glucagen Diagnostic Kit) 0 mg IM STAT PRN; Protocol PRN Reason: Hypoglycemia Protocol Hydromorphone HCl (Dilaudid) 0.5 mg IM Q4H PRN PRN Reason: Pain, severe (8-10) Last Admin: 03/21/17 18:13 Dose: 0.5 mg Fluconazole (Diflucan Iv 200 Mg/100 Ml Ns) 100 mls @ 100 mls/hr IVPB DAILY [facility] Last Admin: 03/21/17 10:00 Dose: Not Given Metronidazole (Flagyl) 500 mg in 100 mls @ 100 mls/hr IVPB Q8 [facility] Last Admin: 03/21/17 21:02 Dose: Not Given Insulin Glargine (Lantus) 25 unit SC HS [facility] Last Admin: 03/16/17 22:27 Dose: Not Given Insulin Human Regular (Novolin R) 0 unit SC ACHS [facility] PRN Reason: Protocol Last Admin: 03/21/17 21:47 Dose: 3 unit Latanoprost (Xalatan Opht) 0.02 ml OU HS [facility] Last Admin: 03/21/17 21:47 Dose: 0.02 ml Lisinopril (Zestril) 20 mg PO DAILY [facility] Last Admin: 03/21/17 13:03 Dose: 20 mg Pantoprazole Sodium (Protonix Inj) 40 mg IVP DAILY [facility] Last Admin: 03/21/17 15:00 Dose: Not Given Rosuvastatin Calcium (Crestor) 10 mg PO HS [facility] Last Admin: 03/21/17 21:47 Dose: 10 mg Timolol Maleate (Timoptic 0.5% Oph Soln) 1 drop OU BID [facility] Last Admin: 03/21/17 18:13 Dose: 1 drop Vitamin B Complex/Vit C/Folic Acid (Nephro-Alonzo) 1 tab PO 0800 [facility] Last Admin: 03/21/17 08:33 Dose: 1 tab - Labs Labs: 03/21/17 09:59 03/21/17 09:59 PT 12.3 SECONDS (9.7-12.2) H 02/18/17 05:30 INR 1.1 02/18/17 05:30 APTT 30 SECONDS (21-34) 02/18/17 05:30 - Additional Findings Additional findings: - Constitutional Appears: Chronically Ill - Head Exam Head Exam: ATRAUMATIC, NORMAL INSPECTION, NORMOCEPHALIC - Eye Exam Eye Exam: EOMI - ENT Exam Additional comments: NGT - Respiratory Exam Respiratory Exam: Clear to Ausculation Bilateral, NORMAL BREATHING PATTERN - Cardiovascular Exam Cardiovascular Exam: REGULAR RHYTHM - GI/Abdominal Exam GI & Abdominal Exam: Soft, Normal Bowel Sounds. absent: Distended, Tenderness - Extremities Exam Additional comments: necrotic skin on plantar aspect of L. foot with healthy grnaulatyion tissue on the periphery. 95% tissue. dressing changed yesterday 03/19/17 with 4x4s, dry, clean and intact Assessment and Plan - Assessment and Plan (Free Text) Assessment: Non-Healing Left Heel Ulcer * Podiatry ([place]) * recommended Left BKA * ID ([place]) * Vascular ([place]) * recommended Left BKA * Santyl BID * Flagyl 500mg IV Q8 * Vanco 1g IV MWF * Dilaudid 0.5 mg IV Q4 PRN * Low ext arterial duplex (02/04/17) * occlusion R post tib artery, 50-75% stenosis right mid popliteal & proximal anterior tib arteries * occlusion of left post tib artery, >75% stenosis left proximal ant tibial artery, 50-75% stenosis left distal SFA & proximal popliteal a. * Abdominal Angiography 02/19/17 * Severe bilateral lower extremity arterial runoff with 1 vessel likely remaining patent at the right. None is continuously patent at the left lower extremity [id number]. Widely patent abdominal aorta and iliac arterial system with moderate right and [id number] left femoral arterial disease. Severe bilateral popliteal artery arterial disease. Left Pleural Effusion * Pulm ([place]varo) * CXR 03/11 - moderate left pleural effusion. C. Diff * Repeat C diff and stool culture on 02/28-negative Altered Mental Status * Neuro (Carla) * likely 2/2 to hypoglycemia * CT Head negative for Acute Infarction * Monitor Accuchecks qACHS and Q4H End Stage Renal Disease on Hemodialysis * Nephro (Hajal) * TTS Decreased oral intake * NGT pulled * Soft diet * GI does not recommend PEG procedure (see GI 03/19/17 note) due to significant medical problems (sepsis, WBC, hyponatremia, 50% pl efffusion., pericardial effusion). Recommend NG tube feeding. Hypertension * Norvasc 5 mg PO daily * Losartan 100 mg PO daily Anemia of Chronic Disease * Likely secondary to ESRD * IV ferlicet 125 TTS * Procrit 10,000 units IV Diabetes * D50 as needed. * Lantus 25 units * Accuchecks * Hgb A1C 8.9 * Rosuvastatin 10mg po hs Prophylactic Measures * SCDs * Heparin 5000 units SC Q8H * 1:1 observation due to agitation. Patient tries to get out of bed. * Fall precautions * Palliative care consulted. Disposition: This patient has a very poor prognosis. The family wishes to try to save the leg despite multiple professional opinions on the necessity of an amputation. The family initially wished for the patient to go to [facility] where hyperbaric therapy is available in order to promote healing. They wished to be cared for by their personal svp research and strategic analysis Dr. Ware; however, Dr. Ware has become unavailable. So the family decided to remain at [facility] and attempt healing via vascular surgery to improve circulation and wound debridement of damaged tissue. They were repeatedly warned by multiple medical record clerk of the risks associated with refusing a BKA and attempting to salvage the foot. The family verbalized understanding of the risks but still decide against a BKA at this time. <Benson Myrick Jr. - Last Filed: 03/29/17 13:10> Objective - Vital Signs/Intake and Output Vital Signs (last 24 hours): Temp Pulse Resp BP Pulse Ox 98.5 F 90 30 H 123/46 L 98 03/29/17 07:00 03/29/17 10:00 03/29/17 10:00 03/29/17 08:14 03/29/17 10:00 Intake and Output: 03/29/17 03/29/17 06:59 18:59 Intake Total Balance - Medications Medications: Current Medications Acetaminophen (Tylenol 325mg Tab) 650 mg PO Q6 PRN PRN Reason: Pain, moderate (4-7) Last Admin: 03/28/17 13:21 Dose: 650 mg Brimonidine Tartrate (Alphagan 0.2% Opht) 1 ml OU TID [facility] Last Admin: 03/29/17 09:39 Dose: 1 drop Collagenase (Santyl) 0 gm TOP DAILY [facility] Last Admin: 03/29/17 09:59 Dose: 1 applic Dextrose (Dextrose 50% Inj) 0 ml IV STAT PRN; Protocol PRN Reason: Hyglycemia Protocol Dextrose (Glutose 15) 0 gm PO ONCE PRN; Protocol PRN Reason: Hypoglycemia Protocol Epoetin Maxwell (Procrit) 10,000 unit IV TTS [facility] Last Admin: 03/28/17 10:33 Dose: 10,000 unit Ergocalciferol (Drisdol 50,000 Intl Units Cap) 1 cap PO Q7D [facility] Last Admin: 03/24/17 00:47 Dose: 1 cap Glucagon (Glucagen Diagnostic Kit) 0 mg IM STAT PRN; Protocol PRN Reason: Hypoglycemia Protocol Heparin Sodium (Porcine) (Heparin) 5,000 units SC Q12 [facility] Last Admin: 03/29/17 09:41 Dose: 5,000 units Vancomycin/Sodium Chloride (Vancomycin 1 Gm/Ns 200 Ml) 1 gm in 200 mls @ 133.333 mls/hr IVPB TTS [facility] Last Admin: 03/28/17 13:26 Dose: 133.333 mls/hr Insulin Glargine (Lantus) 25 unit SC HS [facility] Last Admin: 03/16/17 22:27 Dose: Not Given Insulin Human Regular (Novolin R) 0 unit SC ACHS [facility] PRN Reason: Protocol Last Admin: 03/29/17 12:20 Dose: 4 unit Latanoprost (Xalatan Opht) 0.02 ml OU HS [facility] Last Admin: 03/28/17 21:32 Dose: 0.02 ml Lisinopril (Zestril) 20 mg PO DAILY [facility] Last Admin: 03/29/17 10:03 Dose: 20 mg Pantoprazole Sodium (Protonix Ec Tab) 40 mg PO DAILY [facility] Last Admin: 03/29/17 09:59 Dose: 40 mg Rosuvastatin Calcium (Crestor) 10 mg PO HS [facility] Last Admin: 03/28/17 21:32 Dose: 10 mg Timolol Maleate (Timoptic 0.5% Oph Soln) 1 drop OU BID [facility] Last Admin: 03/29/17 09:38 Dose: 1 drop Vitamin B Complex/Vit C/Folic Acid (Nephro-Alonzo) 1 tab PO 0800 [facility] Last Admin: 03/29/17 08:09 Dose: 1 tab - Labs Labs: 03/29/17 06:45 03/29/17 06:45 PT 12.3 SECONDS (9.7-12.2) H 02/18/17 05:30 INR 1.1 02/18/17 05:30 APTT 30 SECONDS (21-34) 02/18/17 05:30 Attending/Attestation - Attestation I have personally seen and examined this patient.: Yes I have fully participated in the care of the patient.: Yes I have reviewed all pertinent clinical information, including history, physical exam and plan: Yes Notes (Text): 03/29/17 13:09 Agree with resident note and plan of care
[2017-03-22] MEDS: HYDROmorphone 0.5 mg/0.5 ml ISec IM PRN ×4 (02:10→22:19)
[2017-03-22] MEDS: (Novolin R) Insulin Human Regular 100 units/ml vial SC SCH ×4 (03:33→16:45)
[2017-03-22] MEDS: metroNIDAZOLE IV 500 mg/100 ml 500 MG/100 ML BAG IVPB SCH ×2 (07:05→14:00)
[2017-03-22] MEDS: Multivitamin Vitamin B Complex (Nephro-Vite) Tab PO SCH (08:27)
[2017-03-22] MEDS: Fluconazole IV 200mg/100 ml NS 100 ML IVPB SCH (09:06)
[2017-03-22] MEDS: Brimonidine 0.2% Opth Sol (5ml) OU SCH ×3 (09:06→18:43)
[2017-03-22] MEDS: Collagenase 250 Units/gm Ointment(30 gm) TOP SCH (09:06)
--- NOTE | 2017-03-22 14:28 | CP.PCM.PN ---
Subjective - Date & Time of Evaluation Date of Evaluation: 03/22/17 Time of Evaluation: 08:00 - Subjective Subjective: remains poorly responsive / afebrile' family refused amputation LLE cont wound care IV rx renewed Objective - Vital Signs/Intake and Output Vital Signs (last 24 hours): Temp Pulse Resp BP Pulse Ox 97.9 F 92 H 20 98/53 L 95 03/22/17 07:12 03/22/17 07:12 03/22/17 07:12 03/22/17 07:12 03/22/17 07:12 - Medications Medications: Current Medications Amlodipine Besylate (Norvasc) 5 mg PO DAILY [facility] Last Admin: 03/22/17 09:06 Dose: Not Given Brimonidine Tartrate (Alphagan 0.2% Opht) 1 ml OU TID [facility] Last Admin: 03/22/17 09:06 Dose: 1 drop Collagenase (Santyl) 0 gm TOP DAILY [facility] Last Admin: 03/22/17 09:06 Dose: Not Given Dextrose (Dextrose 50% Inj) 0 ml IV STAT PRN; Protocol PRN Reason: Hyglycemia Protocol Dextrose (Glutose 15) 0 gm PO ONCE PRN; Protocol PRN Reason: Hypoglycemia Protocol Epoetin Maxwell (Procrit) 10,000 unit IV TTS [facility] Last Admin: 03/21/17 09:56 Dose: 10,000 unit Ferric Sodium Gluconate Complex (Ferrlecit) 125 mg IVPB TTS [facility] Stop: 03/28/17 10:01 Last Admin: 03/21/17 09:55 Dose: 125 mg Glucagon (Glucagen Diagnostic Kit) 0 mg IM STAT PRN; Protocol PRN Reason: Hypoglycemia Protocol Hydromorphone HCl (Dilaudid) 0.5 mg IM Q4H PRN PRN Reason: Pain, severe (8-10) Last Admin: 03/22/17 12:26 Dose: 0.5 mg Fluconazole (Diflucan Iv 200 Mg/100 Ml Ns) 100 mls @ 100 mls/hr IVPB DAILY [facility] Last Admin: 03/22/17 09:06 Dose: Not Given Metronidazole (Flagyl) 500 mg in 100 mls @ 100 mls/hr IVPB Q8 [facility] Last Admin: 03/22/17 07:05 Dose: Not Given Insulin Glargine (Lantus) 25 unit SC HS [facility] Last Admin: 03/16/17 22:27 Dose: Not Given Insulin Human Regular (Novolin R) 0 unit SC ACHS [facility] PRN Reason: Protocol Last Admin: 03/22/17 12:29 Dose: 8 unit Latanoprost (Xalatan Opht) 0.02 ml OU HS [facility] Last Admin: 03/21/17 21:47 Dose: 0.02 ml Lisinopril (Zestril) 20 mg PO DAILY [facility] Last Admin: 03/22/17 09:05 Dose: 20 mg Pantoprazole Sodium (Protonix Inj) 40 mg IVP DAILY [facility] Last Admin: 03/22/17 09:06 Dose: Not Given Rosuvastatin Calcium (Crestor) 10 mg PO HS [facility] Last Admin: 03/21/17 21:47 Dose: 10 mg Timolol Maleate (Timoptic 0.5% Oph Soln) 1 drop OU BID [facility] Last Admin: 03/22/17 09:06 Dose: 1 drop Vitamin B Complex/Vit C/Folic Acid (Nephro-Alonzo) 1 tab PO 0800 [facility] Last Admin: 03/22/17 08:27 Dose: 1 tab - Labs Labs: 03/21/17 09:59 03/21/17 09:59 PT 12.3 SECONDS (9.7-12.2) H 02/18/17 05:30 INR 1.1 02/18/17 05:30 APTT 30 SECONDS (21-34) 02/18/17 05:30 - Constitutional Appears: Non-toxic, Cachectic - Head Exam Head Exam: NORMOCEPHALIC - Eye Exam Eye Exam: PERRL - ENT Exam ENT Exam: Mucous Membranes Dry, Normal External Ear Exam - Neck Exam Neck Exam: absent: Lymphadenopathy - Respiratory Exam Respiratory Exam: Decreased Breath Sounds - Cardiovascular Exam Cardiovascular Exam: REGULAR RHYTHM - GI/Abdominal Exam GI & Abdominal Exam: Distended - Rectal Exam Rectal Exam: Deferred - Exam Exam: NORMAL INSPECTION - Extremities Exam Extremities Exam: Pedal Edema, Tenderness. absent: Calf Tenderness Additional comments: LLE wound dry but necrotic - Back Exam Back Exam: absent: CVA tenderness (L), CVA tenderness (R) - Neurological Exam Neurological Exam: Altered - Psychiatric Exam Psychiatric exam: Depressed Assessment and Plan (1) Change in mental status Status: Acute (2) End stage renal disease on dialysis Status: Acute (3) Heel ulcer Status: Acute (4) IDDM (insulin dependent diabetes mellitus) Status: Chronic - Assessment and Plan (Free Text) Assessment: cont rx consider BKA
[2017-03-23] MEDS: (Novolin R) Insulin Human Regular 100 units/ml vial SC SCH ×4 (00:47→17:56)
[2017-03-23] MEDS: metroNIDAZOLE IV 500 mg/100 ml 500 MG/100 ML BAG IVPB SCH ×3 (00:47→22:34)
[2017-03-23] MEDS: Multivitamin Vitamin B Complex (Nephro-Vite) Tab PO SCH (08:32)
[2017-03-23] MEDS: Collagenase 250 Units/gm Ointment(30 gm) TOP SCH (09:10)
[2017-03-23] MEDS: Brimonidine 0.2% Opth Sol (5ml) OU SCH ×3 (09:15→17:56)
[2017-03-23] MEDS: HYDROmorphone 0.5 mg/0.5 ml ISec IM PRN ×2 (10:50→18:39)
[2017-03-23] MEDS ORDERED: Lidocaine 2% Inj (20ml) ONE (12:44)
--- NOTE | 2017-03-23 13:05 | PCM.SURG1 ---
Surgeon's Initial Post Op Note - Surgeon's Notes Surgeon: Rogers Mauricio MD Tripoler: NONE Type of Anesthesia: Local Pre-Operative Diagnosis: Poor venous access Operative Findings: Patent right basilic vein Post-Operative Diagnosis: Poor venous access Operation Performed: Single lumen picc placement right basilic vein, 33 cm. Tip is in the SVC. Specimen/Specimens Removed: NONE Estimated Blood Loss: EBL {In ML}: 2 Blood Products Given: N/A Drains Used: No Drains Post-Op Condition: Fair Date of Surgery/Procedure: 03/23/17 Time of Surgery/Procedure: 13:00
[2017-03-23] MEDS: Pantoprazole 40 mg EC Tab PO SCH (13:28)
--- NOTE | 2017-03-23 14:44 | CP.PCM.PN ---
<Trevor Elkins - Last Filed: 03/23/17 14:44> Subjective - Date & Time of Evaluation Date of Evaluation: 03/23/17 Time of Evaluation: 14:42 - Subjective Subjective: Medicine Note for Dr. Myrick HPI: Patient seen and examined at bedside. Lost IV access during the weekend. Was seen in vascular lab preop with at bedside prior to PICC placement. ROS unattainable. Objective - Vital Signs/Intake and Output Vital Signs (last 24 hours): Temp Pulse Resp BP Pulse Ox 97.7 F 97 H 18 107/60 93 L 03/23/17 08:49 03/23/17 08:49 03/23/17 08:49 03/23/17 08:49 03/23/17 08:49 - Medications Medications: Current Medications Amlodipine Besylate (Norvasc) 5 mg PO DAILY [facility] Last Admin: 03/23/17 09:10 Dose: 5 mg Brimonidine Tartrate (Alphagan 0.2% Opht) 1 ml OU TID [facility] Last Admin: 03/23/17 13:30 Dose: 1 drop Collagenase (Santyl) 0 gm TOP DAILY [facility] Last Admin: 03/23/17 09:10 Dose: Not Given Dextrose (Dextrose 50% Inj) 0 ml IV STAT PRN; Protocol PRN Reason: Hyglycemia Protocol Dextrose (Glutose 15) 0 gm PO ONCE PRN; Protocol PRN Reason: Hypoglycemia Protocol Epoetin Maxwell (Procrit) 10,000 unit IV TTS [facility] Last Admin: 03/21/17 09:56 Dose: 10,000 unit Ferric Sodium Gluconate Complex (Ferrlecit) 125 mg IVPB TTS [facility] Stop: 03/28/17 10:01 Last Admin: 03/21/17 09:55 Dose: 125 mg Glucagon (Glucagen Diagnostic Kit) 0 mg IM STAT PRN; Protocol PRN Reason: Hypoglycemia Protocol Hydromorphone HCl (Dilaudid) 0.5 mg IM Q4H PRN PRN Reason: Pain, severe (8-10) Last Admin: 03/23/17 10:50 Dose: 0.5 mg Fluconazole (Diflucan Iv 200 Mg/100 Ml Ns) 100 mls @ 100 mls/hr IVPB DAILY [facility] Last Admin: 03/22/17 09:06 Dose: Not Given Metronidazole (Flagyl) 500 mg in 100 mls @ 100 mls/hr IVPB Q8 [facility] Last Admin: 03/23/17 13:28 Dose: 100 mls/hr Insulin Glargine (Lantus) 25 unit SC HS [facility] Last Admin: 03/16/17 22:27 Dose: Not Given Insulin Human Regular (Novolin R) 0 unit SC ACHS [facility] PRN Reason: Protocol Last Admin: 03/23/17 13:28 Dose: 8 unit Latanoprost (Xalatan Opht) 0.02 ml OU HS [facility] Last Admin: 03/21/17 21:47 Dose: 0.02 ml Lisinopril (Zestril) 20 mg PO DAILY [facility] Last Admin: 03/23/17 09:10 Dose: 20 mg Pantoprazole Sodium (Protonix Ec Tab) 40 mg PO DAILY [facility] Last Admin: 03/23/17 13:28 Dose: 40 mg Rosuvastatin Calcium (Crestor) 10 mg PO HS [facility] Last Admin: 03/22/17 21:06 Dose: 10 mg Timolol Maleate (Timoptic 0.5% [facility]) 1 drop OU BID [facility] Last Admin: 03/23/17 09:15 Dose: 1 drop Vitamin B Complex/Vit C/Folic Acid (Nephro-Alonzo) 1 tab PO 0800 [facility] Last Admin: 03/23/17 08:32 Dose: 1 tab - Labs Labs: 03/21/17 09:59 03/21/17 09:59 PT 12.3 SECONDS (9.7-12.2) H 02/18/17 05:30 INR 1.1 02/18/17 05:30 APTT 30 SECONDS (21-34) 02/18/17 05:30 - Additional Findings Additional findings: - Constitutional Appears: Chronically Ill - Head Exam Head Exam: ATRAUMATIC, NORMAL INSPECTION, NORMOCEPHALIC - Eye Exam Eye Exam: EOMI - ENT Exam Additional comments: NGT - Respiratory Exam Respiratory Exam: Clear to Ausculation Bilateral, NORMAL BREATHING PATTERN - Cardiovascular Exam Cardiovascular Exam: REGULAR RHYTHM - GI/Abdominal Exam GI & Abdominal Exam: Soft, Normal Bowel Sounds. absent: Distended, Tenderness - Extremities Exam Additional comments: necrotic skin on plantar aspect of L. foot with healthy grnaulatyion tissue on the periphery. 95% tissue. dressing changed yesterday 03/19/17 with 4x4s, dry, clean and intact Assessment and Plan - Assessment and Plan (Free Text) Assessment: Non-Healing Left Heel Ulcer * Podiatry (Bennie) * recommended Left BKA * ID (Mangia) * Vascular (Bobo) * recommended Left BKA * Santyl BID * Flagyl 500mg IV Q8 * Vanco 1g IV MWF * Dilaudid 0.5 mg IV Q4 PRN * Low ext arterial duplex (02/04/17) * occlusion R post tib artery, 50-75% stenosis right mid popliteal & proximal anterior tib arteries * occlusion of left post tib artery, >75% stenosis left proximal ant tibial artery, 50-75% stenosis left distal SFA & proximal popliteal a. * Abdominal Angiography 02/19/17 * Severe bilateral lower extremity arterial runoff with 1 vessel likely remaining patent at the right. None is continuously patent at the left lower extremity [id number]. Widely patent abdominal aorta and iliac arterial system with moderate right and [id number] left femoral arterial disease. Severe bilateral popliteal artery arterial disease. * PICC replaced on 03/23/17 Left Pleural Effusion * Pulm (Alvaro) * CXR 03/11 - moderate left pleural effusion. C. Diff * Repeat C diff and stool culture on 02/28-negative Altered Mental Status * Neuro (Carla) * likely 2/2 to hypoglycemia * CT Head negative for Acute Infarction * Monitor Accuchecks qACHS and Q4H End Stage Renal Disease on Hemodialysis * Nephro (Hajal) * TTS Decreased oral intake * NGT pulled * Soft diet * GI does not recommend PEG procedure (see GI 03/19/17 note) due to significant medical problems (sepsis, WBC, hyponatremia, 50% pl efffusion., pericardial effusion). Recommend NG tube feeding. Hypertension * Norvasc 5 mg PO daily * Losartan 100 mg PO daily Anemia of Chronic Disease * Likely secondary to ESRD * IV ferlicet 125 TTS * Procrit 10,000 units IV Diabetes * D50 as needed. * Lantus 25 units * Accuchecks * Hgb A1C 8.9 * Rosuvastatin 10mg po hs Prophylactic Measures * SCDs * Heparin 5000 units SC Q8H * 1:1 observation due to agitation. Patient tries to get out of bed. * Fall precautions * Palliative care consulted. Disposition: This patient has a very poor prognosis. The family wishes to try to save the leg despite multiple professional opinions on the necessity of an amputation. The family initially wished for the patient to go to [facility] where hyperbaric therapy is available in order to promote healing. They wished to be cared for by their personal forestry engineer Dr. Ware; however, Dr. Ware has become unavailable. So the family decided to remain at [facility] and attempt healing via vascular surgery to improve circulation and wound debridement of damaged tissue. They were repeatedly warned by multiple medical corps officer of the risks associated with refusing a BKA and attempting to salvage the foot. The family verbalized understanding of the risks but still decide against a BKA at this time. <Benson Myrick Jr. - Last Filed: 03/29/17 13:20> Objective - Vital Signs/Intake and Output Vital Signs (last 24 hours): Temp Pulse Resp BP Pulse Ox 98.5 F 90 30 H 123/46 L 98 03/29/17 07:00 03/29/17 10:00 03/29/17 10:00 03/29/17 08:14 03/29/17 10:00 Intake and Output: 03/29/17 03/29/17 06:59 18:59 Intake Total Balance - Medications Medications: Current Medications Acetaminophen (Tylenol 325mg Tab) 650 mg PO Q6 PRN PRN Reason: Pain, moderate (4-7) Last Admin: 03/28/17 13:21 Dose: 650 mg Brimonidine Tartrate (Alphagan 0.2% Opht) 1 ml OU TID [facility] Last Admin: 03/29/17 09:39 Dose: 1 drop Collagenase (Santyl) 0 gm TOP DAILY [facility] Last Admin: 03/29/17 09:59 Dose: 1 applic Dextrose (Dextrose 50% Inj) 0 ml IV STAT PRN; Protocol PRN Reason: Hyglycemia Protocol Dextrose (Glutose 15) 0 gm PO ONCE PRN; Protocol PRN Reason: Hypoglycemia Protocol Epoetin Maxwell (Procrit) 10,000 unit IV TTS [facility] Last Admin: 03/28/17 10:33 Dose: 10,000 unit Ergocalciferol (Drisdol 50,000 Intl Units Cap) 1 cap PO Q7D [facility] Last Admin: 03/24/17 00:47 Dose: 1 cap Glucagon (Glucagen Diagnostic Kit) 0 mg IM STAT PRN; Protocol PRN Reason: Hypoglycemia Protocol Heparin Sodium (Porcine) (Heparin) 5,000 units SC Q12 [facility] Last Admin: 03/29/17 09:41 Dose: 5,000 units Vancomycin/Sodium Chloride (Vancomycin 1 Gm/Ns 200 Ml) 1 gm in 200 mls @ 133.333 mls/hr IVPB TTS [facility] Last Admin: 03/28/17 13:26 Dose: 133.333 mls/hr Insulin Glargine (Lantus) 25 unit SC HS [facility] Last Admin: 03/16/17 22:27 Dose: Not Given Insulin Human Regular (Novolin R) 0 unit SC ACHS [facility] PRN Reason: Protocol Last Admin: 03/29/17 12:20 Dose: 4 unit Latanoprost (Xalatan Opht) 0.02 ml OU HS [facility] Last Admin: 03/28/17 21:32 Dose: 0.02 ml Lisinopril (Zestril) 20 mg PO DAILY [facility] Last Admin: 03/29/17 10:03 Dose: 20 mg Pantoprazole Sodium (Protonix Ec Tab) 40 mg PO DAILY [facility] Last Admin: 03/29/17 09:59 Dose: 40 mg Rosuvastatin Calcium (Crestor) 10 mg PO HS [facility] Last Admin: 03/28/17 21:32 Dose: 10 mg Timolol Maleate (Timoptic 0.5% Oph Sol) 1 drop OU BID [facility] Last Admin: 03/29/17 09:38 Dose: 1 drop Vitamin B Complex/Vit C/Folic Acid (Nephro-Alonzo) 1 tab PO 0800 [facility] Last Admin: 03/29/17 08:09 Dose: 1 tab - Labs Labs: 03/29/17 06:45 03/29/17 06:45 PT 12.3 SECONDS (9.7-12.2) H 02/18/17 05:30 INR 1.1 02/18/17 05:30 APTT 30 SECONDS (21-34) 02/18/17 05:30 Attending/Attestation - Attestation I have personally seen and examined this patient.: Yes I have fully participated in the care of the patient.: Yes I have reviewed all pertinent clinical information, including history, physical exam and plan: Yes Notes (Text): 03/29/17 13:19 Agree with resident note and plan of care
[2017-03-23] MEDS: HYDROmorphone 0.5 mg/0.5 ml ISec IVP PRN (22:34)
[2017-03-23] MEDS: Latanoprost 2.5 ml Opht Soln OU SCH (22:34)
--- NOTE | 2017-03-24 | CP.PCM.PN ---
Subjective - Date & Time of Evaluation Date of Evaluation: 03/23/17 Time of Evaluation: 14:00 - Subjective Subjective: SEEN ON RENAL F/U CLINICALLY THE SAME S/O L ARM PICC LINE Objective - Vital Signs/Intake and Output Vital Signs (last 24 hours): Temp Pulse Resp BP Pulse Ox 97.9 F 90 20 116/67 97 03/23/17 15:00 03/23/17 15:00 03/23/17 15:00 03/23/17 15:00 03/23/17 15:00 Intake and Output: 03/23/17 03/24/17 18:59 06:59 Intake Total 520 Balance 520 - Medications Medications: Current Medications Amlodipine Besylate (Norvasc) 5 mg PO DAILY [facility] Last Admin: 03/23/17 09:10 Dose: 5 mg Brimonidine Tartrate (Alphagan 0.2% Opht) 1 ml OU TID [facility] Last Admin: 03/23/17 17:56 Dose: 1 drop Collagenase (Santyl) 0 gm TOP DAILY [facility] Last Admin: 03/23/17 09:10 Dose: Not Given Dextrose (Dextrose 50% Inj) 0 ml IV STAT PRN; Protocol PRN Reason: Hyglycemia Protocol Dextrose (Glutose 15) 0 gm PO ONCE PRN; Protocol PRN Reason: Hypoglycemia Protocol Epoetin Maxwell (Procrit) 10,000 unit IV TTS [facility] Last Admin: 03/21/17 09:56 Dose: 10,000 unit Ferric Sodium Gluconate Complex (Ferrlecit) 125 mg IVPB TTS [facility] Stop: 03/28/17 10:01 Last Admin: 03/21/17 09:55 Dose: 125 mg Glucagon (Glucagen Diagnostic Kit) 0 mg IM STAT PRN; Protocol PRN Reason: Hypoglycemia Protocol Hydromorphone HCl (Dilaudid) 0.5 mg IVP Q4H PRN PRN Reason: Pain, severe (8-10) Last Admin: 03/23/17 22:34 Dose: 0.5 mg Fluconazole (Diflucan Iv 200 Mg/100 Ml Ns) 100 mls @ 100 mls/hr IVPB DAILY [facility] Last Admin: 03/22/17 09:06 Dose: Not Given Metronidazole (Flagyl) 500 mg in 100 mls @ 100 mls/hr IVPB Q8 [facility] Last Admin: 03/23/17 22:34 Dose: 100 mls/hr Insulin Glargine (Lantus) 25 unit SC HS [facility] Last Admin: 03/16/17 22:27 Dose: Not Given Insulin Human Regular (Novolin R) 0 unit SC ACHS [facility] PRN Reason: Protocol Last Admin: 03/23/17 17:56 Dose: 10 unit Latanoprost (Xalatan Opht) 0.02 ml OU HS [facility] Last Admin: 03/23/17 22:34 Dose: 0.02 ml Lisinopril (Zestril) 20 mg PO DAILY [facility] Last Admin: 03/23/17 09:10 Dose: 20 mg Pantoprazole Sodium (Protonix Ec Tab) 40 mg PO DAILY [facility] Last Admin: 03/23/17 13:28 Dose: 40 mg Rosuvastatin Calcium (Crestor) 10 mg PO HS [facility] Last Admin: 03/23/17 22:35 Dose: Not Given [facility] Last Admin: 03/23/17 17:56 Dose: 1 drop Vitamin B Complex/Vit C/Folic Acid (Nephro-Alonzo) 1 tab PO 0800 [facility] Last Admin: 03/23/17 08:32 Dose: 1 tab - Labs Labs: 03/21/17 09:59 03/21/17 09:59 PT 12.3 SECONDS (9.7-12.2) H 02/18/17 05:30 INR 1.1 02/18/17 05:30 APTT 30 SECONDS (21-34) 02/18/17 05:30 Assessment and Plan - Assessment and Plan (Free Text) Assessment: ESRD ON HD T T S ANEMIA OF CKD .. H/H BETTER MULTIPLE CO MORBIDITIES C/O CURRENT CARE
[2017-03-24] MEDS: Ergocalciferol 50,000 Intl Units Cap PO SCH (00:47)
[2017-03-24] MEDS: metroNIDAZOLE IV 500 mg/100 ml 500 MG/100 ML BAG IVPB SCH ×3 (05:38→21:39)
[2017-03-24] MEDS: (Novolin R) Insulin Human Regular 100 units/ml vial SC SCH ×4 (08:06→22:01)
[2017-03-24] MEDS: Multivitamin Vitamin B Complex (Nephro-Vite) Tab PO SCH ×2 (08:06→09:00)
--- NOTE | 2017-03-24 10:31 | CP.PCM.PN ---
<Trevor Elkins - Last Filed: 03/24/17 10:33> Subjective - Date & Time of Evaluation Date of Evaluation: 03/24/17 Time of Evaluation: 10:29 - Subjective Subjective: Medicine Note for Dr. Myrick HPI: Patient seen and examined at bedside in dialysis. Dressing changed this morning. No acute changed. ROS Unattainable. Objective - Vital Signs/Intake and Output Vital Signs (last 24 hours): Temp Pulse Resp BP Pulse Ox 98.2 F 94 H 26 H 129/57 L 99 03/24/17 09:40 03/24/17 09:40 03/24/17 09:40 03/24/17 10:10 03/24/17 09:40 Intake and Output: 03/24/17 03/24/17 06:59 18:59 Intake Total 50 Balance 50 - Medications Medications: Current Medications Brimonidine Tartrate (Alphagan 0.2% Opht) 1 ml OU TID [facility] Last Admin: 03/23/17 17:56 Dose: 1 drop Collagenase (Santyl) 0 gm TOP DAILY [facility] Last Admin: 03/23/17 09:10 Dose: Not Given Dextrose (Dextrose 50% Inj) 0 ml IV STAT PRN; Protocol PRN Reason: Hyglycemia Protocol Dextrose (Glutose 15) 0 gm PO ONCE PRN; Protocol PRN Reason: Hypoglycemia Protocol Epoetin Maxwell (Procrit) 10,000 unit IV TTS [facility] Last Admin: 03/21/17 09:56 Dose: 10,000 unit Ergocalciferol (Drisdol 50,000 Intl Units Cap) 1 cap PO Q7D [facility] Last Admin: 03/24/17 00:47 Dose: 1 cap Ferric Sodium Gluconate Complex (Ferrlecit) 125 mg IVPB TTS [facility] Stop: 03/28/17 10:01 Last Admin: 03/21/17 09:55 Dose: 125 mg Glucagon (Glucagen Diagnostic Kit) 0 mg IM STAT PRN; Protocol PRN Reason: Hypoglycemia Protocol Hydromorphone HCl (Dilaudid) 0.5 mg IVP Q4H PRN PRN Reason: Pain, severe (8-10) Last Admin: 03/23/17 22:34 Dose: 0.5 mg Fluconazole (Diflucan Iv 200 Mg/100 Ml Ns) 100 mls @ 100 mls/hr IVPB DAILY [facility] Last Admin: 03/22/17 09:06 Dose: Not Given Metronidazole (Flagyl) 500 mg in 100 mls @ 100 mls/hr IVPB Q8 [facility] Last Admin: 03/24/17 05:38 Dose: 100 mls/hr Insulin Glargine (Lantus) 25 unit SC HS [facility] Last Admin: 03/16/17 22:27 Dose: Not Given Insulin Human Regular (Novolin R) 0 unit SC ACHS [facility] PRN Reason: Protocol Last Admin: 03/24/17 08:06 Dose: 2 unit Latanoprost (Xalatan Opht) 0.02 ml OU HS [facility] Last Admin: 03/23/17 22:34 Dose: 0.02 ml Lisinopril (Zestril) 20 mg PO DAILY [facility] Last Admin: 03/23/17 09:10 Dose: 20 mg Pantoprazole Sodium (Protonix Ec Tab) 40 mg PO DAILY [facility] Last Admin: 03/23/17 13:28 Dose: 40 mg Rosuvastatin Calcium (Crestor) 10 mg PO HS [facility] Last Admin: 03/23/17 22:35 Dose: Not Given Timolol Maleate (Timoptic 0.5% Oph Soln) 1 drop OU BID [facility] Last Admin: 03/23/17 17:56 Dose: 1 drop Vitamin B Complex/Vit C/Folic Acid (Nephro-Alonzo) 1 tab PO 0800 [facility] Last Admin: 03/24/17 09:00 Dose: Not Given - Labs Labs: 03/21/17 09:59 03/21/17 09:59 PT 12.3 SECONDS (9.7-12.2) H 02/18/17 05:30 INR 1.1 02/18/17 05:30 APTT 30 SECONDS (21-34) 02/18/17 05:30 - Constitutional Appears: Chronically Ill - Head Exam Head Exam: ATRAUMATIC, NORMAL INSPECTION, NORMOCEPHALIC - Eye Exam Eye Exam: EOMI - ENT Exam ENT Exam: Mucous Membranes Moist - Respiratory Exam Respiratory Exam: Clear to Ausculation Bilateral, NORMAL BREATHING PATTERN - Cardiovascular Exam Cardiovascular Exam: REGULAR RHYTHM - GI/Abdominal Exam GI & Abdominal Exam: Soft, Normal Bowel Sounds. absent: Distended, Tenderness - Extremities Exam Extremities Exam: Tenderness (Tenderness when lifting leg for dressing change. Majority of plantar aspect of foot is necrotic. dressing clean dry and intact). absent: Joint Swelling - Neurological Exam Neurological Exam: Alert, Awake - Skin Skin Exam: Dry, Intact, Normal Color, Warm Assessment and Plan - Assessment and Plan (Free Text) Assessment: Non-Healing Left Heel Ulcer * Podiatry (Bennie) * recommended Left BKA * ID (Mangia) * Vascular (Zebulon) * recommended Left BKA * Santyl BID * Flagyl 500mg IV Q8 * Vanco 1g IV MWF * Dilaudid 0.5 mg IV Q4 PRN * Low ext arterial duplex (02/04/17) * occlusion R post tib artery, 50-75% stenosis right mid popliteal & proximal anterior tib arteries * occlusion of left post tib artery, >75% stenosis left proximal ant tibial artery, 50-75% stenosis left distal SFA & proximal popliteal a. * Abdominal Angiography 02/19/17 * Severe bilateral lower extremity arterial runoff with 1 vessel likely remaining patent at the right. None is continuously patent at the left lower extremity [id number]. Widely patent abdominal aorta and iliac arterial system with moderate right and [id number] left femoral arterial disease. Severe bilateral popliteal artery arterial disease. * PICC replaced on 03/23/17 Left Pleural Effusion * Pulm (Alvaro) * CXR 03/11 - moderate left pleural effusion. C. Diff * Repeat C diff and stool culture on 02/28-negative Altered Mental Status * Neuro (Carla) * likely 2/2 to hypoglycemia * CT Head negative for Acute Infarction * Monitor Accuchecks qACHS and Q4H End Stage Renal Disease on Hemodialysis * Nephro (Hajal) * TTS Decreased oral intake * NGT pulled * Soft diet * GI does not recommend PEG procedure (see GI 03/19/17 note) due to significant medical problems (sepsis, WBC, hyponatremia, 50% pl efffusion., pericardial effusion). Recommend NG tube feeding. Hypertension * Norvasc 5 mg PO daily * Losartan 100 mg PO daily Anemia of Chronic Disease * Likely secondary to ESRD * IV ferlicet 125 TTS * Procrit 10,000 units IV Diabetes * D50 as needed. * Lantus 25 units * Accuchecks * Hgb A1C 8.9 * Rosuvastatin 10mg po hs Prophylactic Measures * SCDs * Heparin 5000 units SC Q8H * 1:1 observation due to agitation. Patient tries to get out of bed. * Fall precautions * Palliative care consulted. Disposition: This patient has a very poor prognosis. The family wishes to try to save the leg despite multiple professional opinions on the necessity of an amputation. The family initially wished for the patient to go to [facility] where hyperbaric therapy is available in order to promote healing. They wished to be cared for by their personal stave jointer Dr. Ware; however, Dr. Ware has become unavailable. So the family decided to remain at [facility] and attempt healing via vascular surgery to improve circulation and wound debridement of damaged tissue. They were repeatedly warned by multiple medical transport specialist of the risks associated with refusing a BKA and attempting to salvage the foot. The family verbalized understanding of the risks but still decide against a BKA at this time. <Benson Myrick Jr. - Last Filed: 03/29/17 13:23> Objective - Vital Signs/Intake and Output Vital Signs (last 24 hours): Temp Pulse Resp BP Pulse Ox 98.5 F 90 30 H 123/46 L 98 03/29/17 07:00 03/29/17 10:00 03/29/17 10:00 03/29/17 08:14 03/29/17 10:00 Intake and Output: 03/29/17 03/29/17 06:59 18:59 Intake Total Balance - Medications Medications: Current Medications Acetaminophen (Tylenol 325mg Tab) 650 mg PO Q6 PRN PRN Reason: Pain, moderate (4-7) Last Admin: 03/28/17 13:21 Dose: 650 mg Brimonidine Tartrate (Alphagan 0.2% Opht) 1 ml OU TID [facility] Last Admin: 03/29/17 09:39 Dose: 1 drop Collagenase (Santyl) 0 gm TOP DAILY [facility] Last Admin: 03/29/17 09:59 Dose: 1 applic Dextrose (Dextrose 50% Inj) 0 ml IV STAT PRN; Protocol PRN Reason: Hyglycemia Protocol Dextrose (Glutose 15) 0 gm PO ONCE PRN; Protocol PRN Reason: Hypoglycemia Protocol Epoetin Maxwell (Procrit) 10,000 unit IV TTS [facility] Last Admin: 03/28/17 10:33 Dose: 10,000 unit Ergocalciferol (Drisdol 50,000 Intl Units Cap) 1 cap PO Q7D [facility] Last Admin: 03/24/17 00:47 Dose: 1 cap Glucagon (Glucagen Diagnostic Kit) 0 mg IM STAT PRN; Protocol PRN Reason: Hypoglycemia Protocol Heparin Sodium (Porcine) (Heparin) 5,000 units SC Q12 [facility] Last Admin: 03/29/17 09:41 Dose: 5,000 units Vancomycin/Sodium Chloride (Vancomycin 1 Gm/Ns 200 Ml) 1 gm in 200 mls @ 133.333 mls/hr IVPB TTS [facility] Last Admin: 03/28/17 13:26 Dose: 133.333 mls/hr Insulin Glargine (Lantus) 25 unit SC HS [facility] Last Admin: 03/16/17 22:27 Dose: Not Given Insulin Human Regular (Novolin R) 0 unit SC ACHS [facility] PRN Reason: Protocol Last Admin: 03/29/17 12:20 Dose: 4 unit Latanoprost (Xalatan Opht) 0.02 ml OU HS [facility] Last Admin: 03/28/17 21:32 Dose: 0.02 ml Lisinopril (Zestril) 20 mg PO DAILY [facility] Last Admin: 03/29/17 10:03 Dose: 20 mg Pantoprazole Sodium (Protonix Ec Tab) 40 mg PO DAILY [facility] Last Admin: 03/29/17 09:59 Dose: 40 mg Rosuvastatin Calcium (Crestor) 10 mg PO HS [facility] Last Admin: 03/28/17 21:32 Dose: 10 mg Timolol Maleate (Timoptic 0.5% Oph Soln) 1 drop OU BID [facility] Last Admin: 03/29/17 09:38 Dose: 1 drop Vitamin B Complex/Vit C/Folic Acid (Nephro-Alonzo) 1 tab PO 0800 [facility] Last Admin: 03/29/17 08:09 Dose: 1 tab - Labs Labs: 03/29/17 06:45 03/29/17 06:45 PT 12.3 SECONDS (9.7-12.2) H 02/18/17 05:30 INR 1.1 02/18/17 05:30 APTT 30 SECONDS (21-34) 02/18/17 05:30 Attending/Attestation - Attestation I have personally seen and examined this patient.: Yes I have fully participated in the care of the patient.: Yes I have reviewed all pertinent clinical information, including history, physical exam and plan: Yes Notes (Text): 03/29/17 13:23 Agree with resident note on plan of care
[2017-03-24] MEDS: Pantoprazole 40 mg EC Tab PO SCH (11:24)
[2017-03-24] MEDS: Brimonidine 0.2% Opth Sol (5ml) OU SCH ×3 (11:24→17:09)
[2017-03-24] MEDS: Fluconazole IV 200mg/100 ml NS 100 ML IVPB SCH (11:24)
[2017-03-24] MEDS: Collagenase 250 Units/gm Ointment(30 gm) TOP SCH (11:24)
[2017-03-24] MEDS: Ferric Sodium Gluconat Complex 62.5 mg/5 ml Vial IVPB SCH (11:58)
[2017-03-24] MEDS: Epoetin Alfa 10,000 unit/ml Dialysis IV SCH (11:58)
[2017-03-24] MEDS: HYDROmorphone 0.5 mg/0.5 ml ISec IVP PRN (19:11)
[2017-03-24] MEDS: Latanoprost 2.5 ml Opht Soln OU SCH (21:40)
--- NOTE | 2017-03-24 23:51 | CP.PCM.PN ---
Subjective - Date & Time of Evaluation Date of Evaluation: 03/24/17 Time of Evaluation: 14:00 - Subjective Subjective: SEEN ON RENAL F/U SEEN ON HD FEELS THE SAME TOLERATING HD WELL Objective - Vital Signs/Intake and Output Vital Signs (last 24 hours): Temp Pulse Resp BP Pulse Ox 99.4 F 94 H 20 130/69 97 03/24/17 15:02 03/24/17 15:02 03/24/17 15:02 03/24/17 15:02 03/24/17 15:02 Intake and Output: 03/24/17 03/25/17 18:59 06:59 Intake Total 50 400 Balance 50 400 - Medications Medications: Current Medications Brimonidine Tartrate (Alphagan 0.2% Opht) 1 ml OU TID [facility] Last Admin: 03/24/17 17:09 Dose: 1 drop Collagenase (Santyl) 0 gm TOP DAILY [facility] Last Admin: 03/24/17 11:24 Dose: Not Given Dextrose (Dextrose 50% Inj) 0 ml IV STAT PRN; Protocol PRN Reason: Hyglycemia Protocol Dextrose (Glutose 15) 0 gm PO ONCE PRN; Protocol PRN Reason: Hypoglycemia Protocol Epoetin Maxwell (Procrit) 10,000 unit IV TTS [facility] Last Admin: 03/24/17 11:58 Dose: 10,000 unit Ergocalciferol (Drisdol 50,000 Intl Units Cap) 1 cap PO Q7D [facility] Last Admin: 03/24/17 00:47 Dose: 1 cap Ferric Sodium Gluconate Complex (Ferrlecit) 125 mg IVPB TTS [facility] Stop: 03/28/17 10:01 Last Admin: 03/24/17 11:58 Dose: 125 mg Glucagon (Glucagen Diagnostic Kit) 0 mg IM STAT PRN; Protocol PRN Reason: Hypoglycemia Protocol Hydromorphone HCl (Dilaudid) 0.5 mg IVP Q4H PRN PRN Reason: Pain, severe (8-10) Last Admin: 03/24/17 19:11 Dose: 0.5 mg Fluconazole (Diflucan Iv 200 Mg/100 Ml Ns) 100 mls @ 100 mls/hr IVPB DAILY [facility] Last Admin: 03/24/17 11:24 Dose: Not Given Metronidazole (Flagyl) 500 mg in 100 mls @ 100 mls/hr IVPB Q8 [facility] Last Admin: 03/24/17 21:39 Dose: 100 mls/hr Insulin Glargine (Lantus) 25 unit SC HS [facility] Last Admin: 03/16/17 22:27 Dose: Not Given Insulin Human Regular (Novolin R) 0 unit SC ACHS [facility] PRN Reason: Protocol Last Admin: 03/24/17 22:01 Dose: Not Given Latanoprost (Xalatan Opht) 0.02 ml OU HS [facility] Last Admin: 03/24/17 21:40 Dose: 0.02 ml Lisinopril (Zestril) 20 mg PO DAILY [facility] Last Admin: 03/24/17 11:25 Dose: Not Given Pantoprazole Sodium (Protonix Ec Tab) 40 mg PO DAILY [facility] Last Admin: 03/24/17 11:24 Dose: Not Given Rosuvastatin Calcium (Crestor) 10 mg PO HS [facility] Last Admin: 03/24/17 21:39 Dose: 10 mg Timolol [facility]ate ([facility] 1 drop OU BID [facility] Last Admin: 03/24/17 17:09 Dose: 1 drop Vitamin B Complex/Vit C/Folic Acid (Nephro-Alonzo) 1 tab PO 0800 [facility] Last Admin: 03/24/17 09:00 Dose: Not Given - Labs Labs: 03/21/17 09:59 03/21/17 09:59 PT 12.3 SECONDS (9.7-12.2) H 02/18/17 05:30 INR 1.1 02/18/17 05:30 APTT 30 SECONDS (21-34) 02/18/17 05:30 Assessment and Plan - Assessment and Plan (Free Text) Assessment: ESRD ON HD T T S .. TO BE C/O ANEMIA OF CKD .. ON EPO MULTIPLE CO MORBIDITIES C/O CURRENT CARE
[2017-03-25] MEDS: HYDROmorphone 0.5 mg/0.5 ml ISec IVP PRN (03:43)
[2017-03-25] MEDS: metroNIDAZOLE IV 500 mg/100 ml 500 MG/100 ML BAG IVPB SCH ×4 (05:00→22:20)
[2017-03-25] MEDS: (Novolin R) Insulin Human Regular 100 units/ml vial SC SCH ×5 (08:58→22:19)
[2017-03-25] MEDS: Multivitamin Vitamin B Complex (Nephro-Vite) Tab PO SCH (08:59)
[2017-03-25] MEDS: Collagenase 250 Units/gm Ointment(30 gm) TOP SCH (10:00)
--- NOTE | 2017-03-25 10:49 | CP.PCM.PN ---
<Trevor Elkins - Last Filed: 03/26/17 10:19> Subjective - Date & Time of Evaluation Date of Evaluation: 03/25/17 Time of Evaluation: 10:45 - Subjective Subjective: Medicine Note for Dr. Myrick HPI: Patient seen and examined at bedside in dialysis. Dressing changed this morning. No acute changed. ROS Unattainable. Objective - Vital Signs/Intake and Output Vital Signs (last 24 hours): Temp Pulse Resp BP Pulse Ox 97.6 F 114 H 18 122/79 93 L 03/25/17 08:04 03/25/17 08:04 03/25/17 08:04 03/25/17 08:04 03/25/17 08:04 Intake and Output: 03/25/17 03/25/17 06:59 18:59 Intake Total 800 Balance 800 - Medications Medications: Current Medications Brimonidine Tartrate (Alphagan 0.2% Opht) 1 ml OU TID [facility] Last Admin: 03/24/17 17:09 Dose: 1 drop Collagenase (Santyl) 0 gm TOP DAILY [facility] Last Admin: 03/24/17 11:24 Dose: Not Given Dextrose (Dextrose 50% Inj) 0 ml IV STAT PRN; Protocol PRN Reason: Hyglycemia Protocol Dextrose (Glutose 15) 0 gm PO ONCE PRN; Protocol PRN Reason: Hypoglycemia Protocol Epoetin Maxwell (Procrit) 10,000 unit IV TTS [facility] Last Admin: 03/24/17 11:58 Dose: 10,000 unit Ergocalciferol (Drisdol 50,000 Intl Units Cap) 1 cap PO Q7D [facility] Last Admin: 03/24/17 00:47 Dose: 1 cap Ferric Sodium Gluconate Complex (Ferrlecit) 125 mg IVPB TTS [facility] Stop: 03/28/17 10:01 Last Admin: 03/24/17 11:58 Dose: 125 mg Glucagon (Glucagen Diagnostic Kit) 0 mg IM STAT PRN; Protocol PRN Reason: Hypoglycemia Protocol Hydromorphone HCl (Dilaudid) 0.5 mg IVP Q4H PRN PRN Reason: Pain, severe (8-10) Last Admin: 03/25/17 03:43 Dose: 0.5 mg Fluconazole (Diflucan Iv 200 Mg/100 Ml Ns) 100 mls @ 100 mls/hr IVPB DAILY [facility] Last Admin: 03/24/17 11:24 Dose: Not Given Metronidazole (Flagyl) 500 mg in 100 mls @ 100 mls/hr IVPB Q8 [facility] Last Admin: 03/25/17 05:00 Dose: 100 mls/hr Insulin Glargine (Lantus) 25 unit SC HS [facility] Last Admin: 03/16/17 22:27 Dose: Not Given Insulin Human Regular (Novolin R) 0 unit SC ACHS [facility] PRN Reason: Protocol Last Admin: 03/25/17 08:58 Dose: 12 unit Latanoprost (Xalatan Opht) 0.02 ml OU HS [facility] Last Admin: 03/24/17 21:40 Dose: 0.02 ml Lisinopril (Zestril) 20 mg PO DAILY [facility] Last Admin: 03/24/17 11:25 Dose: Not Given Pantoprazole Sodium (Protonix Ec Tab) 40 mg PO DAILY [facility] Last Admin: 03/24/17 11:24 Dose: Not Given Rosuvastatin Calcium (Crestor) 10 mg PO HS [facility] Last Admin: 03/24/17 21:39 Dose: 10 mg Timolol Maleate (Timoptic 0.5% Oph Soln) 1 drop OU BID [facility] Last Admin: 03/24/17 17:09 Dose: 1 drop Vitamin B Complex/Vit C/Folic Acid (Nephro-Alonzo) 1 tab PO 0800 [facility] Last Admin: 03/25/17 08:59 Dose: 1 tab - Labs Labs: 03/21/17 09:59 03/21/17 09:59 PT 12.3 SECONDS (9.7-12.2) H 02/18/17 05:30 INR 1.1 02/18/17 05:30 APTT 30 SECONDS (21-34) 02/18/17 05:30 - Additional Findings Additional findings: - Constitutional Appears: Chronically Ill - Head Exam Head Exam: ATRAUMATIC, NORMAL INSPECTION, NORMOCEPHALIC - Eye Exam Eye Exam: EOMI - ENT Exam ENT Exam: Mucous Membranes Moist - Respiratory Exam Respiratory Exam: Clear to Ausculation Bilateral, NORMAL BREATHING PATTERN - Cardiovascular Exam Cardiovascular Exam: REGULAR RHYTHM - GI/Abdominal Exam GI & Abdominal Exam: Soft, Normal Bowel Sounds. absent: Distended, Tenderness - Extremities Exam Extremities Exam: Tenderness (Tenderness when lifting leg for dressing change. Majority of plantar aspect of foot is necrotic. dressing clean dry and intact). absent: Joint Swelling - Neurological Exam Neurological Exam: Alert, Awake - Skin Skin Exam: Dry, Intact, Normal Color, Warm Assessment and Plan - Assessment and Plan (Free Text) Assessment: Non-Healing Left Heel Ulcer * Podiatry (Bennie) * recommended Left BKA * ID (Mangia) * Vascular ([place]) * recommended Left BKA * Santyl BID * Flagyl 500mg IV Q8 * Vanco 1g IV MWF * Dilaudid 0.5 mg IV Q4 PRN * Low ext arterial duplex (02/04/17) * occlusion R post tib artery, 50-75% stenosis right mid popliteal & proximal anterior tib arteries * occlusion of left post tib artery, >75% stenosis left proximal ant tibial artery, 50-75% stenosis left distal SFA & proximal popliteal a. * Abdominal Angiography 02/19/17 * Severe bilateral lower extremity arterial runoff with 1 vessel likely remaining patent at the right. None is continuously patent at the left lower extremity [id number]. Widely patent abdominal aorta and iliac arterial system with moderate right and [id number] left femoral arterial disease. Severe bilateral popliteal artery arterial disease. * PICC replaced on 03/23/17, Cath flow administered on 03/24/17 Left Pleural Effusion * Pulm (Alvaro) * CXR 03/11 - moderate left pleural effusion. C. Diff * Repeat C diff and stool culture on 02/28-negative Altered Mental Status * Neuro (Carla) * likely 2/2 to hypoglycemia * CT Head negative for Acute Infarction * Monitor Accuchecks qACHS and Q4H End Stage Renal Disease on Hemodialysis * Nephro (Hajal) * TTS Decreased oral intake * NGT pulled * Soft diet * GI does not recommend PEG procedure (see GI 03/19/17 note) due to significant medical problems (sepsis, WBC, hyponatremia, 50% pl efffusion., pericardial effusion). Recommend NG tube feeding. Hypertension * Norvasc 5 mg PO daily * Losartan 100 mg PO daily Anemia of Chronic Disease * Likely secondary to ESRD * IV ferlicet 125 TTS * Procrit 10,000 units IV Diabetes * D50 as needed. * Lantus 25 units * Accuchecks * Hgb A1C 8.9 * Rosuvastatin 10mg po hs Prophylactic Measures * SCDs * Heparin 5000 units SC Q8H * 1:1 observation due to agitation. Patient tries to get out of bed. * Fall precautions * Palliative care consulted. Disposition: This patient has a very poor prognosis. The family wishes to try to save the leg despite multiple professional opinions on the necessity of an amputation. The family initially wished for the patient to go to [facility] where hyperbaric therapy is available in order to promote healing. They wished to be cared for by their personal plant protection officer Dr. Ware; however, Dr. Ware has become unavailable. So the family decided to remain at [facility] and attempt healing via vascular surgery to improve circulation and wound debridement of damaged tissue. They were repeatedly warned by multiple biomedical engineering technologist of the risks associated with refusing a BKA and attempting to salvage the foot. The family verbalized understanding of the risks but still decide against a BKA at this time. <Benson Myrick Jr. - Last Filed: 03/29/17 13:24> Objective - Vital Signs/Intake and Output Vital Signs (last 24 hours): Temp Pulse Resp BP Pulse Ox 98.5 F 90 30 H 123/46 L 98 03/29/17 07:00 03/29/17 10:00 03/29/17 10:00 03/29/17 08:14 03/29/17 10:00 Intake and Output: 03/29/17 03/29/17 06:59 18:59 Intake Total Balance - Medications Medications: Current Medications Acetaminophen (Tylenol 325mg Tab) 650 mg PO Q6 PRN PRN Reason: Pain, moderate (4-7) Last Admin: 03/28/17 13:21 Dose: 650 mg Brimonidine Tartrate (Alphagan 0.2% Opht) 1 ml OU TID [facility] Last Admin: 03/29/17 09:39 Dose: 1 drop Collagenase (Santyl) 0 gm TOP DAILY [facility] Last Admin: 03/29/17 09:59 Dose: 1 applic Dextrose (Dextrose 50% Inj) 0 ml IV STAT PRN; Protocol PRN Reason: Hyglycemia Protocol Dextrose (Glutose 15) 0 gm PO ONCE PRN; Protocol PRN Reason: Hypoglycemia Protocol Epoetin Maxwell (Procrit) 10,000 unit IV TTS [facility] Last Admin: 03/28/17 10:33 Dose: 10,000 unit Ergocalciferol (Drisdol 50,000 Intl Units Cap) 1 cap PO Q7D [facility] Last Admin: 03/24/17 00:47 Dose: 1 cap Glucagon (Glucagen Diagnostic Kit) 0 mg IM STAT PRN; Protocol PRN Reason: Hypoglycemia Protocol Heparin Sodium (Porcine) (Heparin) 5,000 units SC Q12 [facility] Last Admin: 03/29/17 09:41 Dose: 5,000 units Vancomycin/Sodium Chloride (Vancomycin 1 Gm/Ns 200 Ml) 1 gm in 200 mls @ 133.333 mls/hr IVPB TTS [facility] Last Admin: 03/28/17 13:26 Dose: 133.333 mls/hr Insulin Glargine (Lantus) 25 unit SC HS [facility] Last Admin: 03/16/17 22:27 Dose: Not Given Insulin Human Regular (Novolin R) 0 unit SC ACHS [facility] PRN Reason: Protocol Last Admin: 03/29/17 12:20 Dose: 4 unit Latanoprost (Xalatan Opht) 0.02 ml OU HS [facility] Last Admin: 03/28/17 21:32 Dose: 0.02 ml Lisinopril (Zestril) 20 mg PO DAILY [facility] Last Admin: 03/29/17 10:03 Dose: 20 mg Pantoprazole Sodium (Protonix Ec Tab) 40 mg PO DAILY [facility] Last Admin: 03/29/17 09:59 Dose: 40 mg Rosuvastatin Calcium (Crestor) 10 mg PO HS [facility] Last Admin: 03/28/17 21:32 Dose: 10 mg Timolol Maleate (Timoptic 0.5% Oph Soln) 1 drop OU BID [facility] Last Admin: 03/29/17 09:38 Dose: 1 drop Vitamin B Complex/Vit C/Folic Acid (Nephro-Alonzo) 1 tab PO 0800 [facility] Last Admin: 03/29/17 08:09 Dose: 1 tab - Labs Labs: 03/29/17 06:45 03/29/17 06:45 PT 12.3 SECONDS (9.7-12.2) H 02/18/17 05:30 INR 1.1 02/18/17 05:30 APTT 30 SECONDS (21-34) 02/18/17 05:30 Attending/Attestation - Attestation I have personally seen and examined this patient.: Yes I have fully participated in the care of the patient.: Yes I have reviewed all pertinent clinical information, including history, physical exam and plan: Yes Notes (Text): 03/29/17 13:24 Agree resident note and plan of care
[2017-03-25] MEDS: Pantoprazole 40 mg EC Tab PO SCH (10:54)
[2017-03-25] MEDS: Brimonidine 0.2% Opth Sol (5ml) OU SCH ×3 (10:55→17:22)
[2017-03-25] MEDS: Fluconazole IV 200mg/100 ml NS 100 ML IVPB SCH ×3 (10:56→17:51)
--- NOTE | 2017-03-25 13:22 | RAD ---
HISTORY: SOB COMPARISON: 03/11/2017 FINDINGS: LUNGS: No definite infiltrate. Moderate large left pleural effusion persists without interval change. There is left-sided volume loss with shift of the heart and mediastinum towards the left. This is suggestive of left-sided atelectasis. Possible small right pleural effusion new from prior. No pneumothorax. PLEURA: As above CARDIOVASCULAR: Mild congestive change. Right tunneled central venous dialysis catheter. New right PICC catheter terminating in the region of the superior vena cava. OSSEOUS STRUCTURES: No significant abnormalities. VISUALIZED UPPER ABDOMEN: Normal. OTHER FINDINGS: None. IMPRESSION: Moderate large left pleural effusion unchanged. Left-sided volume loss suggestive of atelectasis. Mild congestive change. Possible small right pleural effusion. New right PICC catheter terminating in the region of the superior vena cava.
--- NOTE | 2017-03-25 13:30 | CP.PCM.PN ---
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 Objective - Vital Signs/Intake and Output Vital Signs (last 24 hours): Temp Pulse Resp BP Pulse Ox 97.6 F 110 H 18 132/76 93 L 03/25/17 08:04 03/25/17 13:04 03/25/17 08:04 03/25/17 10:54 03/25/17 08:04 Intake and Output: 03/25/17 03/25/17 06:59 18:59 Intake Total 800 Balance 800 - Medications Medications: Current Medications Brimonidine Tartrate (Alphagan 0.2% Opht) 1 ml OU TID [facility] Last Admin: 03/25/17 10:55 Dose: 1 drop Collagenase (Santyl) 0 gm TOP DAILY [facility] Last Admin: 03/25/17 10:00 Dose: Not Given Dextrose (Dextrose 50% Inj) 0 ml IV STAT PRN; Protocol PRN Reason: Hyglycemia Protocol Dextrose (Glutose 15) 0 gm PO ONCE PRN; Protocol PRN Reason: Hypoglycemia Protocol Epoetin Maxwell (Procrit) 10,000 unit IV TTS [facility] Last Admin: 03/24/17 11:58 Dose: 10,000 unit Ergocalciferol (Drisdol 50,000 Intl Units Cap) 1 cap PO Q7D [facility] Last Admin: 03/24/17 00:47 Dose: 1 cap Ferric Sodium Gluconate Complex (Ferrlecit) 125 mg IVPB TTS [facility] Stop: 03/28/17 10:01 Last Admin: 03/24/17 11:58 Dose: 125 mg Glucagon (Glucagen Diagnostic Kit) 0 mg IM STAT PRN; Protocol PRN Reason: Hypoglycemia Protocol Hydromorphone HCl (Dilaudid) 0.5 mg IVP Q4H PRN PRN Reason: Pain, severe (8-10) Last Admin: 03/25/17 03:43 Dose: 0.5 mg Fluconazole (Diflucan Iv 200 Mg/100 Ml Ns) 100 mls @ 100 mls/hr IVPB DAILY [facility] Last Admin: 03/25/17 13:08 Dose: Not Given Metronidazole (Flagyl) 500 mg in 100 mls @ 100 mls/hr IVPB Q8 [facility] Last Admin: 03/25/17 05:00 Dose: 100 mls/hr Insulin Glargine (Lantus) 25 unit SC HS [facility] Last Admin: 03/16/17 22:27 Dose: Not Given Insulin Human Regular (Novolin R) 0 unit SC ACHS [facility] PRN Reason: Protocol Last Admin: 03/25/17 08:59 Dose: 12 unit Latanoprost (Xalatan Opht) 0.02 ml OU HS [facility] Last Admin: 03/24/17 21:40 Dose: 0.02 ml Lisinopril (Zestril) 20 mg PO DAILY [facility] Last Admin: 03/25/17 10:55 Dose: 20 mg Pantoprazole Sodium (Protonix Ec Tab) 40 mg PO DAILY [facility] Last Admin: 03/25/17 10:54 Dose: 40 mg Rosuvastatin Calcium (Crestor) 10 mg PO HS [facility] Last Admin: 03/24/17 21:39 Dose: 10 mg Timolol Maleate (Timoptic 0.5% [facility]) 1 drop OU BID [facility] Last Admin: 03/25/17 10:56 Dose: 1 drop Vitamin B Complex/Vit C/Folic Acid (Nephro-Alonzo) 1 tab PO 0800 [facility] Last Admin: 03/25/17 08:59 Dose: 1 tab - Labs Labs: 03/21/17 09:59 03/21/17 09:59 PT 12.3 SECONDS (9.7-12.2) H 02/18/17 05:30 INR 1.1 02/18/17 05:30 APTT 30 SECONDS (21-34) 02/18/17 05:30 Assessment and Plan - Assessment and Plan (Free Text) Assessment: ESRD ON HD TTS ANEMIA OF CKD .. H/H STABLE MULTIPLE CO MORBIDITIES P : C/O CURRENT CARE
[2017-03-25 15:15] LABS: BASO % 0.2 % (0.0-2.0); HEMATOCRIT 27.3 % (34.0-47.0); LYMPH # 0.8 K/uL (1.0-4.3); LYMPH % 4.4 % (20.0-40.0); MEAN CELL VOLUME 98.2 fL (81.0-99.0); MEAN CORPUSCULAR HEMOGLOBIN 30.2 pg (27.0-31.0); MEAN CORPUSCULAR HGB CONC 30.8 g/dL (33.0-37.0); MEAN PLATELET VOLUME 8.5 fL (7.2-11.7); MONO # 0.9 K/uL (0.0-0.8); MONO % 4.8 % (0.0-10.0); NRBC % 0.1 % (0.0-2.0); PLATELET COUNT 452 K/uL (130-400); RED CELL DISTRIBUTION WIDTH 22.9 % (11.5-14.5); WHITE BLOOD COUNT 17.9 K/uL (4.8-10.8)
--- NOTE | 2017-03-25 15:18 | PCM.PROC ---
Procedures Attestation:: I certify that I have explained the specified Operation(s) or Procedure(s), risks, benefits and reasonable alternatives to the Patient and/or other person responsible. The opportunity was given to ask questions and all questions answered - Central Line Placement Right Femoral Triple Lumen Catheter Aseptic technique was employed throughout the procedure: Hand Hygiene done prior to procedure, Full sterile barriers (mask, hair cover, sterile gown, sterile gloves), Full body sterile drape, Chloraprep Antiseptic: 2 minute prep for Femoral CVP Time Out Performed: Yes Pt. Placed on Pulse Ox Monitor: Yes Central Line Prep: Chlorhexidine-Alcohol Combination Local Anesthesia Used: Lidocaine 1% Ultrasound Used for Placement: Yes Central Line Lumen Inserted: triple Central Line Length: 20 cm Post Procedure: Sutured in Place, Good Blood Return, All Ports Aspirated, Flushed, Capped, Sterile Dressing Applied Secured by: Suture Post procedure dressing: Gauze, Clear vapor permeable, Chlorhexidine disc ( Biopatch) Post Procedure X-Ray: No Patient Tolerated Procedure: Well, No Complications Immediate Complications: None
[2017-03-25 15:21] LABS: POTASSIUM 3.7 mmol/L (3.6-5.2)
[2017-03-25 15:23] LABS: ALB/GLOB RATIO 0.7 (1.0-2.1); BILIRUBIN,TOTAL 0.4 mg/dL (0.2-1.3); TOTAL PROTEIN 6.1 g/dL (6.3-8.3)
[2017-03-25 15:24] LABS: CALCIUM 7.7 mg/dl (8.6-10.4); PHOSPHOROUS 2.8 mg/dL (2.5-4.5)
--- NOTE | 2017-03-25 15:24 | CP.PCM.PN ---
Subjective - Date & Time of Evaluation Date of Evaluation: 03/25/17 Time of Evaluation: 09:00 - Subjective Subjective: admitted to ICU weak confused on BiPap afebrile Objective - Vital Signs/Intake and Output Vital Signs (last 24 hours): Temp Pulse Resp BP Pulse Ox 97.6 F 110 H 18 132/76 93 L 03/25/17 08:04 03/25/17 13:32 03/25/17 08:04 03/25/17 10:54 03/25/17 08:04 Intake and Output: 03/25/17 03/25/17 06:59 18:59 Intake Total 800 0 Output Total 0 Balance 800 0 - Medications Medications: Current Medications Brimonidine Tartrate (Alphagan 0.2% Opht) 1 ml OU TID [facility] Last Admin: 03/25/17 14:20 Dose: Not Given Collagenase (Santyl) 0 gm TOP DAILY [facility] Last Admin: 03/25/17 10:00 Dose: Not Given Dextrose (Dextrose 50% Inj) 0 ml IV STAT PRN; Protocol PRN Reason: Hyglycemia Protocol Dextrose (Glutose 15) 0 gm PO ONCE PRN; Protocol PRN Reason: Hypoglycemia Protocol Epoetin Maxwell (Procrit) 10,000 unit IV TTS [facility] Last Admin: 03/24/17 11:58 Dose: 10,000 unit Ergocalciferol (Drisdol 50,000 Intl Units Cap) 1 cap PO Q7D [facility] Last Admin: 03/24/17 00:47 Dose: 1 cap Ferric Sodium Gluconate Complex (Ferrlecit) 125 mg IVPB TTS [facility] Stop: 03/28/17 10:01 Last Admin: 03/24/17 11:58 Dose: 125 mg Glucagon (Glucagen Diagnostic Kit) 0 mg IM STAT PRN; Protocol PRN Reason: Hypoglycemia Protocol Hydromorphone HCl (Dilaudid) 0.5 mg IVP Q4H PRN PRN Reason: Pain, severe (8-10) Last Admin: 03/25/17 03:43 Dose: 0.5 mg Fluconazole (Diflucan Iv 200 Mg/100 Ml Ns) 100 mls @ 100 mls/hr IVPB DAILY [facility] Last Admin: 03/25/17 13:08 Dose: Not Given Metronidazole (Flagyl) 500 mg in 100 mls @ 100 mls/hr IVPB Q8 [facility] Last Admin: 03/25/17 05:00 Dose: 100 mls/hr Insulin Glargine (Lantus) 25 unit SC HS [facility] Last Admin: 03/16/17 22:27 Dose: Not Given Insulin Human Regular (Novolin R) 0 unit SC ACHS [facility] PRN Reason: Protocol Last Admin: 03/25/17 13:31 Dose: 12 unit Latanoprost (Xalatan Opht) 0.02 ml OU HS [facility] Last Admin: 03/24/17 21:40 Dose: 0.02 ml Lisinopril (Zestril) 20 mg PO DAILY [facility] Last Admin: 03/25/17 10:55 Dose: 20 mg Pantoprazole Sodium (Protonix Ec Tab) 40 mg PO DAILY [facility] Last Admin: 03/25/17 10:54 Dose: 40 mg Rosuvastatin Calcium (Crestor) 10 mg PO HS [facility] Last Admin: 03/24/17 21:39 Dose: 10 mg Timolol Maleate (Timoptic 0.5% Oph Soln) 1 drop OU BID [facility] Last Admin: 03/25/17 10:56 Dose: 1 drop Vitamin B Complex/Vit C/Folic Acid (Nephro-Alonzo) 1 tab PO 0800 [facility] Last Admin: 03/25/17 08:59 Dose: 1 tab - Labs Labs: 03/25/17 15:04 03/21/17 09:59 PT 12.3 SECONDS (9.7-12.2) H 02/18/17 05:30 INR 1.1 02/18/17 05:30 APTT 30 SECONDS (21-34) 02/18/17 05:30 - Constitutional Appears: Chronically Ill - Head Exam Head Exam: NORMOCEPHALIC - Eye Exam Eye Exam: PERRL - ENT Exam ENT Exam: Mucous Membranes Dry - Neck Exam Neck Exam: absent: Lymphadenopathy - Respiratory Exam Respiratory Exam: Decreased Breath Sounds, Rhonchi - Cardiovascular Exam Cardiovascular Exam: REGULAR RHYTHM - GI/Abdominal Exam GI & Abdominal Exam: Distended, Soft - Rectal Exam Rectal Exam: Deferred - Extremities Exam Extremities Exam: Pedal Edema, Tenderness - Back Exam Back Exam: absent: CVA tenderness (L), CVA tenderness (R) - Neurological Exam Neurological Exam: Altered - Psychiatric Exam Psychiatric exam: Depressed - Skin Skin Exam: Dry Assessment and Plan (1) Change in mental status Status: Acute (2) End stage renal disease on dialysis Status: Acute (3) Heel ulcer Status: Acute (4) IDDM (insulin dependent diabetes mellitus) Status: Chronic - Assessment and Plan (Free Text) Assessment: s/p revasc left leg severe PVD On HD necrotic left foot ulcer r/o sepsis resp failure Poor prognosis family refusing amputation will reculture
--- NOTE | 2017-03-25 15:36 | CP.PCM.CON ---
<Wanda Marquez - Last Filed: 03/25/17 16:30> History of Present Illness - History of Present Illness History of Present Illness: 71 F w/ PMHx of ESRD on HD, CHF, HTN, DM2, PVD who was admitted to [facility] 02/18/17 for altered mental status and has been in the hospital with multiple complications arising such as pleural effusion, non-healing foot ulcer and decreased appetite. Today, patient was found to be in respiratory distress and PICC vascular access was compromised. According to medical leader on floor patient desaturated to 80%s and put on 5l NC. Patient's oxygen increased to low 90%s, but was using accessory muscles to breath. Patient was transferred to the ICU for closer monitoring. PMD: Dr. Myrick PMHx: ESRD on HD (//Thu), CHF, HTN, DM2, PVD, anemia of chronic disease , glaucoma, LBP, depression PSH: AV fistula, appendectomy, lower extremity artherectomy Allergies: NKDA SH: Lives with her in [place]. Per , no smoking, EtOH or drug abuse. Review of Systems - Review of Systems Systems not reviewed;Unavailable: Acuity of Condition, Respiratory Distress Past Patient History - Infectious Disease Hx of Infectious Diseases: None - Tetanus Immunizations Tetanus Immunization: Unknown - Past Medical History & Family History Past Medical History?: Yes - Past Social History Smoking Status: Never Smoked - CARDIAC Hx Hypercholesterolemia: Yes Hx Hypertension: Yes - PULMONARY Hx Respiratory Disorders: No - NEUROLOGICAL Hx Neurological Disorder: No - HEENT Hx HEENT Problems: Yes Hx Cataracts: Yes - RENAL Hx Chronic Kidney Disease: Yes - ENDOCRINE/METABOLIC Hx Diabetes Mellitus Type 2: Yes - HEMATOLOGICAL/ONCOLOGICAL Hx Anemia: Yes Hx Human Immunodeficiency Virus (HIV): No - INTEGUMENTARY Hx Dermatological Problems: No - MUSCULOSKELETAL/RHEUMATOLOGICAL Hx Musculoskeletal Disorders: Yes Hx Degenerative Joint Disease: Yes - GENITOURINARY/GYNECOLOGICAL Hx Genitourinary Disorders: Yes Hx Urinary Tract Infection: Yes - PSYCHIATRIC Hx Anxiety: Yes Hx Depression: Yes Hx Substance Use: No - SURGICAL HISTORY Hx Appendectomy: Yes - ANESTHESIA Hx Anesthesia: Yes Hx Anesthesia Reactions: No Hx Malignant Hyperthermia: No Meds Home Medications: Home Medication List Medication Instructions Recorded Confirmed Type Brimonidine 0.2% [Alphagan 0.2% 1 ml OU TID bottle 02/23/17 Rx Opht] Cefepime [Maxipime] 1 gm IVPB Q24H vial 02/23/17 Rx Epoetin Maxwell [Procrit] 10,000 unit IV TTS ml 02/23/17 Rx Ferric Sodium Gluconat Complex 125 mg IVPB TTS vial 02/23/17 Rx [Ferrlecit] Furosemide [Lasix] 40 mg PO DAILY tab 02/23/17 Rx Heparin 5,000 units SC Q8 vial 02/23/17 Rx Insulin Glargine, Recombina 30 unit SC HS unit 02/23/17 Rx [Lantus] Insulin Human Regular [Novolin R] 0 unit SC ACHS unit 02/23/17 Rx Latanoprost 0.005% Opht [Xalatan 0.02 ml OU HS bottle 02/23/17 Rx Opht] Linezolid [Zyvox] 600 mg PO BID tab 02/23/17 Rx Losartan [Cozaar] 100 mg PO DAILY tab 02/23/17 Rx Metronidazole [Flagyl] 500 mg PO Q8H 10 Days #30 tablet 02/23/17 Rx Rosuvastatin Calcium [Crestor] 10 mg PO HS tab 02/23/17 Rx Thiamine [Vitamin B1 Inj] 100 mg IV Q8H vial 02/23/17 Rx Timolol 0.5% Ophth [Timoptic 0.5% 1 drop OU BID bottle 02/23/17 Rx Ophth Soln] Vancomycin [Vancocin (ORAL OR 125 mg PO QID soln 02/23/17 Rx RECTAL USE)] amLODIPine [Norvasc] 5 mg PO DAILY tab 02/23/17 Rx hydrALAZINE [Apresoline] 25 mg PO BID tab 02/23/17 Rx Allergies/Adverse Reactions: Allergies Allergy/AdvReac Type Severity Reaction Status Date / Time No Known Allergies Allergy Verified 12/20/16 14:34 - Medications Medications: Current Medications Brimonidine Tartrate (Alphagan 0.2% Opht) 1 ml OU TID [facility]INA Last Admin: 03/25/17 14:20 Dose: Not Given Collagenase (Santyl) 0 gm TOP DAILY [facility] Last Admin: 03/25/17 10:00 Dose: Not Given Dextrose (Dextrose 50% Inj) 0 ml IV STAT PRN; Protocol PRN Reason: Hyglycemia Protocol Dextrose (Glutose 15) 0 gm PO ONCE PRN; Protocol PRN Reason: Hypoglycemia Protocol Epoetin Maxwell (Procrit) 10,000 unit IV TTS [facility] Last Admin: 03/24/17 11:58 Dose: 10,000 unit Ergocalciferol (Drisdol 50,000 Intl Units Cap) 1 cap PO Q7D [facility] Last Admin: 03/24/17 00:47 Dose: 1 cap Ferric Sodium Gluconate Complex (Ferrlecit) 125 mg IVPB TTS [facility] Stop: 03/28/17 10:01 Last Admin: 03/24/17 11:58 Dose: 125 mg Glucagon (Glucagen Diagnostic Kit) 0 mg IM STAT PRN; Protocol PRN Reason: Hypoglycemia Protocol Hydromorphone HCl (Dilaudid) 0.5 mg IVP Q4H PRN PRN Reason: Pain, severe (8-10) Last Admin: 03/25/17 03:43 Dose: 0.5 mg Fluconazole (Diflucan Iv 200 Mg/100 Ml Ns) 100 mls @ 100 mls/hr IVPB DAILY [facility] Last Admin: 03/25/17 13:08 Dose: Not Given Metronidazole (Flagyl) 500 mg in 100 mls @ 100 mls/hr IVPB Q8 [facility] Last Admin: 03/25/17 05:00 Dose: 100 mls/hr Insulin Glargine (Lantus) 25 unit SC HS [facility] Last Admin: 03/16/17 22:27 Dose: Not Given Insulin Human Regular (Novolin R) 0 unit SC ACHS [facility] PRN Reason: Protocol Last Admin: 03/25/17 13:31 Dose: 12 unit Latanoprost (Xalatan Opht) 0.02 ml OU HS [facility] Last Admin: 03/24/17 21:40 Dose: 0.02 ml Lisinopril (Zestril) 20 mg PO DAILY [facility] Last Admin: 03/25/17 10:55 Dose: 20 mg Pantoprazole Sodium (Protonix Ec Tab) 40 mg PO DAILY [facility] Last Admin: 03/25/17 10:54 Dose: 40 mg Rosuvastatin Calcium (Crestor) 10 mg PO HS [facility] Last Admin: 03/24/17 21:39 Dose: 10 mg Timolol Maleate (Timoptic 0.5% Ophth Soln) 1 drop OU BID [facility] Last Admin: 03/25/17 10:56 Dose: 1 drop Vitamin B Complex/Vit C/Folic Acid (Nephro-Kvein) 1 tab PO 0800 [facility] Last Admin: 03/25/17 08:59 Dose: 1 tab Physical Exam - Constitutional Appears: Toxic - Head Exam Head Exam: ATRAUMATIC, NORMAL INSPECTION - Eye Exam Eye Exam: EOMI, Normal appearance - ENT Exam ENT Exam: Mucous Membranes Dry - Respiratory Exam Respiratory Exam: Decreased Breath Sounds, Rales - Cardiovascular Exam Cardiovascular Exam: REGULAR RHYTHM, +S1, +S2 - GI/Abdominal Exam GI & Abdominal Exam: Normal Bowel Sounds, Soft - Extremities Exam Extremities exam: Positive for: tenderness. Negative for: normal inspection, pedal edema Additional comments: Majority of left plantar aspect of foot is necrotic. dressing clean dry and intact upper extremity edema - Neurological Exam Neurological exam: Altered - Skin Skin Exam: Warm Additional comments: left non healing foot ulcer Results - Vital Signs Recent Vital Signs: Last Vital Signs Temp 97.6 F 03/25/17 08:04 Pulse 110 H 03/25/17 13:32 Resp 18 03/25/17 08:04 BP 132/76 03/25/17 10:54 Pulse Ox 93 L 03/25/17 08:04 - Labs Result Diagrams: 03/25/17 15:04 03/25/17 15:04 Labs: Laboratory Results - last 24 hr 03/24/17 03/24/17 03/25/17 17:09 21:44 02:15 WBC RBC Hgb Hct MCV MCH MCHC RDW Plt Count MPV Neut % (Auto) Lymph % (Auto) Kerr % (Auto) Eos % (Auto) Baso % (Auto) Neut # Lymph # Kerr # Eos # Baso # Sodium Potassium Chloride Carbon Dioxide Anion Gap BUN Creatinine Est GFR ( Amer) Est GFR (Non-Af Amer) POC Glucose (mg/dL) 328 H 288 H 357 H Random Glucose Calcium Phosphorus Magnesium Total Bilirubin AST ALT Alkaline Phosphatase Total Protein Albumin Globulin Albumin/Globulin Ratio 03/25/17 03/25/17 03/25/17 06:28 07:50 11:17 WBC RBC Hgb Hct MCV MCH MCHC RDW Plt Count MPV Neut % (Auto) Lymph % (Auto) Kerr % (Auto) Eos % (Auto) Baso % (Auto) Neut # Lymph # Kerr # Eos # Baso # Sodium Potassium Chloride Carbon Dioxide Anion Gap BUN Creatinine Est GFR ( Amer) Est GFR (Non-Af Amer) POC Glucose (mg/dL) 498 H* 418 H* 478 H* Random Glucose Calcium Phosphorus Magnesium Total Bilirubin AST ALT Alkaline Phosphatase Total Protein Albumin Globulin Albumin/Globulin Ratio 03/25/17 03/25/17 15:04 15:04 WBC 17.9 H RBC 2.78 L Hgb 8.4 L Hct 27.3 L MCV 98.2 MCH 30.2 MCHC 30.8 L RDW 22.9 H Plt Count 452 H MPV 8.5 Neut % (Auto) 90.6 H Lymph % (Auto) 4.4 L Kerr % (Auto) 4.8 Eos % (Auto) 0.0 Baso % (Auto) 0.2 Neut # 16.2 H Lymph # 0.8 L Kerr # 0.9 H Eos # 0.0 Baso # 0.0 Sodium 127 L Potassium 3.7 Chloride 93 L Carbon Dioxide 24 Anion Gap 14 BUN 26 H Creatinine 1.2 Est GFR ( Amer) 54 Est GFR (Non-Af Amer) 44 POC Glucose (mg/dL) Random Glucose 503 H* Calcium 7.7 L Phosphorus 2.8 Magnesium 2.0 Total Bilirubin 0.4 AST 85 H D ALT 32 Alkaline Phosphatase 262 H D Total Protein 6.1 L Albumin 2.5 L Globulin 3.6 Albumin/Globulin Ratio 0.7 L Assessment & Plan - Assessment and Plan (Free Text) Assessment: Patient is a 71 y/o F with PMHx of HD, CHF, HTN, DM2, PVD with non healing right foot ulcer who went into respiratory distress and was transferred to ICU for closer monitoring. Neuro: Altered mental status, likely secondary to poor glycemic control - Neurology on board (Dr. Aguirre) -CT head negative for acute infarction Cardio: Tachycardic, CHF, HTN. PVD - Vascular surgery on board (Dr. Broussard) for PVD - lisonopril 20mg PO QD - Crestor 10 mg PO HS -R femoral line placed in ICU Pulm: respiratory distress - O2 Sat of 93% on NC - BiPAP placed 10-12 100% O2, patient saturating at 100% Nephro: ESRD on hemodialysis - Pt undergoes hemodialysis Tues/Th/Sat. Last dialyzed 03/24/17 - Multiple electrolyte abnormalities throughout this admission, monitor CMPs+ magnesium and phsophorous daily - Non-functional PICC line from 03/23/17, R femoral line placed for IV access - Ergocalcierol 1 capsule PO Q7D Endo: Type 2 Diabetes, poorly controlled - Random glucose levels in 300s-400s throughout admission, latest at 478 this AM - A1c of 8.9 02/18/17 -accuchecks - Regular Insulin high dose protocol - Lantus 25u SC HS GI: Failure to thrive/decreased appetite, dysphagia - GI consult on board ([place]ino) - As of 03/19/17 GI did not recommend PEG placement due to patient's significant medical comorbidities - Soft diet -C dif neg (02/28) Heme: Anemia of chronic disease - Hgb 8.3 03/21/17 - Procrit 10,000U IV on dialysis days - Barak MSK: -Low ext arterial duplex (02/04/17) -occlusion R post tib artery, 50-75% stenosis right mid popliteal & proximal anterior tib arteries -occlusion of left post tib artery, >75% stenosis left proximal ant tibial artery, 50-75% stenosis left distal SFA & proximal popliteal a. - Podiatry on board (Dr. Avery) for left foot diabetic ulcer - Pt's family refuses lower extremity amputation at this time despite recommendations from Dr. Avery and Dr. Broussard ID: Non-healing left heel ulcer, previously VRE positive - WBC elevated at 17.4 03/19/17 - VRE (left foot ulcer) and C. diff positive on admission, currently resolved - Infectious Disease on board (Dr. Wellington) - On Flagyl and Fluconazole per Dr. Wellington - Podiatry on board (Dr. Avery) for left foot diabetic ulcer - Pt's family refuses lower extremity amputation at this time despite recommendations from Dr. Avery and Dr. Broussard PPX: - Protonix 40mg PO QD - Nephro-kevin vitamins - SCDs <Stalin John S - Last Filed: 03/25/17 16:43> Meds - Medications Medications: Current Medications Brimonidine Tartrate (Alphagan 0.2% Opht) 1 ml OU TID [facility] Last Admin: 03/25/17 14:20 Dose: Not Given Collagenase (Santyl) 0 gm TOP DAILY [facility] Last Admin: 03/25/17 10:00 Dose: Not Given Dextrose (Dextrose 50% Inj) 0 ml IV STAT PRN; Protocol PRN Reason: Hyglycemia Protocol Dextrose (Glutose 15) 0 gm PO ONCE PRN; Protocol PRN Reason: Hypoglycemia Protocol Epoetin Maxwell (Procrit) 10,000 unit IV TTS [facility] Last Admin: 03/24/17 11:58 Dose: 10,000 unit Ergocalciferol (Drisdol 50,000 Intl Units Cap) 1 cap PO Q7D [facility] Last Admin: 03/24/17 00:47 Dose: 1 cap Ferric Sodium Gluconate Complex (Ferrlecit) 125 mg IVPB TTS [facility] Stop: 03/28/17 10:01 Last Admin: 03/24/17 11:58 Dose: 125 mg Glucagon (Glucagen Diagnostic Kit) 0 mg IM STAT PRN; Protocol PRN Reason: Hypoglycemia Protocol Hydromorphone HCl (Dilaudid) 0.5 mg IVP Q4H PRN PRN Reason: Pain, severe (8-10) Last Admin: 03/25/17 03:43 Dose: 0.5 mg Fluconazole (Diflucan Iv 200 Mg/100 Ml Ns) 100 mls @ 100 mls/hr IVPB DAILY [facility] Last Admin: 03/25/17 13:08 Dose: Not Given Metronidazole (Flagyl) 500 mg in 100 mls @ 100 mls/hr IVPB Q8 [facility] Last Admin: 03/25/17 05:00 Dose: 100 mls/hr Insulin Glargine (Lantus) 25 unit SC HS [facility] Last Admin: 03/16/17 22:27 Dose: Not Given Insulin Human Regular (Novolin R) 0 unit SC ACHS [facility] PRN Reason: Protocol Last Admin: 03/25/17 13:31 Dose: 12 unit Latanoprost (Xalatan Opht) 0.02 ml OU HS [facility] Last Admin: 03/24/17 21:40 Dose: 0.02 ml Lisinopril (Zestril) 20 mg PO DAILY [facility] Last Admin: 03/25/17 10:55 Dose: 20 mg Pantoprazole Sodium (Protonix Ec Tab) 40 mg PO DAILY [facility] Last Admin: 03/25/17 10:54 Dose: 40 mg Rosuvastatin Calcium (Crestor) 10 mg PO HS [facility] Last Admin: 03/24/17 21:39 Dose: 10 mg Timolol Maleate (Timoptic 0.5% Ophth Soln) 1 drop OU BID [facility] Last Admin: 03/25/17 10:56 Dose: 1 drop Vitamin B Complex/Vit C/Folic Acid (Nephro-Kevin) 1 tab PO 0800 [facility] Last Admin: 03/25/17 08:59 Dose: 1 tab Results - Vital Signs Recent Vital Signs: Last Vital Signs Temp 97.6 F 03/25/17 13:00 Pulse 87 03/25/17 16:00 Resp 22 03/25/17 16:00 BP 149/48 L 03/25/17 16:00 Pulse Ox 93 L 03/25/17 08:04 - Labs Result Diagrams: 03/25/17 15:04 03/25/17 15:04 Labs: Laboratory Results - last 24 hr 03/24/17 03/24/17 03/25/17 17:09 21:44 02:15 WBC RBC Hgb Hct MCV MCH MCHC RDW Plt Count MPV Neut % (Auto) Lymph % (Auto) Kerr % (Auto) Eos % (Auto) Baso % (Auto) Neut # Lymph # Kerr # Eos # Baso # Neutrophils % (Manual) Lymphocytes % (Manual) Monocytes % (Manual) Platelet Estimate Anisocytosis (manual) Sodium Potassium Chloride Carbon Dioxide Anion Gap BUN Creatinine Est GFR ( Amer) Est GFR (Non-Af Amer) POC Glucose (mg/dL) 328 H 288 H 357 H Random Glucose Calcium Phosphorus Magnesium Total Bilirubin AST ALT Alkaline Phosphatase Total Protein Albumin Globulin Albumin/Globulin Ratio 03/25/17 03/25/17 03/25/17 06:28 07:50 11:17 WBC RBC Hgb Hct MCV MCH MCHC RDW Plt Count MPV Neut % (Auto) Lymph % (Auto) Kerr % (Auto) Eos % (Auto) Baso % (Auto) Neut # Lymph # Kerr # Eos # Baso # Neutrophils % (Manual) Lymphocytes % (Manual) Monocytes % (Manual) Platelet Estimate Anisocytosis (manual) Sodium Potassium Chloride Carbon Dioxide Anion Gap BUN Creatinine Est GFR ( Amer) Est GFR (Non-Af Amer) POC Glucose (mg/dL) 498 H* 418 H* 478 H* Random Glucose Calcium Phosphorus Magnesium Total Bilirubin AST ALT Alkaline Phosphatase Total Protein Albumin Globulin Albumin/Globulin Ratio 03/25/17 03/25/17 03/25/17 15:04 15:04 16:22 WBC 17.9 H RBC 2.78 L Hgb 8.4 L Hct 27.3 L MCV 98.2 MCH 30.2 MCHC 30.8 L RDW 22.9 H Plt Count 452 H MPV 8.5 Neut % (Auto) 90.6 H Lymph % (Auto) 4.4 L Kerr % (Auto) 4.8 Eos % (Auto) 0.0 Baso % (Auto) 0.2 Neut # 16.2 H Lymph # 0.8 L Kerr # 0.9 H Eos # 0.0 Baso # 0.0 Neutrophils % (Manual) 95 H Lymphocytes % (Manual) 3 L Monocytes % (Manual) 2 Platelet Estimate Slightly increased H Anisocytosis (manual) Slight Sodium 127 L Potassium 3.7 Chloride 93 L Carbon Dioxide 24 Anion Gap 14 BUN 26 H Creatinine 1.2 Est GFR ( Amer) 54 Est GFR (Non-Af Amer) 44 POC Glucose (mg/dL) 359 H Random Glucose 503 H* Calcium 7.7 L Phosphorus 2.8 Magnesium 2.0 Total Bilirubin 0.4 AST 85 H D ALT 32 Alkaline Phosphatase 262 H D Total Protein 6.1 L Albumin 2.5 L Globulin 3.6 Albumin/Globulin Ratio 0.7 L Assessment & Plan (1) Pleural effusion Status: Chronic Priority: High (2) Change in mental status Status: Acute (3) Clostridium difficile colitis Status: Acute (4) End stage renal disease on dialysis Status: Acute Attending/Attestation - Attestation I have personally seen and examined this patient.: Yes I have fully participated in the care of the patient.: Yes I have reviewed all pertinent clinical information: Yes Notes (Text): 03/25/17 16:42 Patient seen and examined in the intensive care unit. Case discussed with house staff in the morning. Patient transferred to intensive care unit for respiratory distress and hypoxemia Patient placed on BiPAP Chest x-ray showed large pleural effusion Thoracentesis by IR Triple-lumen catheter inserted in the right femoral vein Continue hemodialysis Continue antibiotics Family refusing amputation
[2017-03-25 16:32] LABS: NEUTROPHIL 95 % (50-75); TOTAL CELLS COUNTED 100
[2017-03-25] MEDS: Latanoprost 2.5 ml Opht Soln OU SCH (22:20)
[2017-03-26] MEDS: metroNIDAZOLE IV 500 mg/100 ml 500 MG/100 ML BAG IVPB SCH ×3 (05:32→21:15)
[2017-03-26 05:51] LABS: BASO % 0.2 % (0.0-2.0); EOS # 0.2 K/uL (0.0-0.7); EOS % 0.9 % (0.0-4.0); HEMATOCRIT 27.2 % (34.0-47.0); LYMPH # 1.6 K/uL (1.0-4.3); LYMPH % 8.1 % (20.0-40.0); MEAN CELL VOLUME 95.9 fL (81.0-99.0); MEAN CORPUSCULAR HEMOGLOBIN 30.3 pg (27.0-31.0); MEAN CORPUSCULAR HGB CONC 31.6 g/dL (33.0-37.0); MEAN PLATELET VOLUME 7.9 fL (7.2-11.7); MONO # 1.4 K/uL (0.0-0.8); MONO % 7.1 % (0.0-10.0); NRBC % 0.1 % (0.0-2.0); PLATELET COUNT 367 K/uL (130-400); RED CELL DISTRIBUTION WIDTH 22.8 % (11.5-14.5); WHITE BLOOD COUNT 19.5 K/uL (4.8-10.8)
[2017-03-26 06:58] LABS: POTASSIUM 3.4 mmol/L (3.6-5.2)
[2017-03-26 07:00] LABS: ALB/GLOB RATIO 0.7 (1.0-2.1); BILIRUBIN,TOTAL 0.4 mg/dL (0.2-1.3); TOTAL PROTEIN 5.3 g/dL (6.3-8.3)
[2017-03-26 07:01] LABS: CALCIUM 7.2 mg/dl (8.6-10.4); MAGNESIUM 1.9 mg/dL (1.6-2.3); PHOSPHOROUS 2.2 mg/dL (2.5-4.5)
[2017-03-26] MEDS: (Novolin R) Insulin Human Regular 100 units/ml vial SC SCH ×4 (07:45→21:25)
[2017-03-26 08:25] LABS: NEUTROPHIL 80 % (50-75); TOTAL CELLS COUNTED 100
--- NOTE | 2017-03-26 08:31 | CP.PCM.PCO ---
Physician Communication Note - Physician Communication Note Physician Communication Note: Permacath was removed at bedside with Dr. Broussard
--- NOTE | 2017-03-26 08:44 | RAD ---
Chest x-ray single frontal view History: Shortness of breath. Comparison: 03/25/2017 Findings: Lines and tubes in stable position. Multiple overlying external wires and tubing noted. Moderate to severe venous congestion with prominent opacification of the left lung as well as the right mid to lower lung zone with associated moderate to large left and moderate right pleural effusion. Small nodular density at the right costophrenic angle. Cardiomegaly. Calcification at the aortic knob. Degenerative changes in the spine and shoulders. Impression: Moderate to severe venous congestion with prominent opacification of the left lung as well as the right mid to lower lung zone with associated moderate to large left and moderate right pleural effusion. Small nodular density at the right costophrenic angle. Cardiomegaly. Calcification at the aortic knob.
[2017-03-26] MEDS: Multivitamin Vitamin B Complex (Nephro-Vite) Tab PO SCH (09:27)
[2017-03-26] MEDS: Fluconazole IV 200mg/100 ml NS 100 ML IVPB SCH (09:52)
[2017-03-26] MEDS: Brimonidine 0.2% Opth Sol (5ml) OU SCH ×4 (09:53→17:08)
[2017-03-26] MEDS: Ferric Sodium Gluconat Complex 62.5 mg/5 ml Vial IVPB SCH (10:10)
[2017-03-26] MEDS: Epoetin Alfa 10,000 unit/ml Dialysis IV SCH (10:11)
--- NOTE | 2017-03-26 11:29 | CP.PCM.PN ---
<Georges Williamsona - Last Filed: 03/26/17 13:36> Subjective - Date & Time of Evaluation Date of Evaluation: 03/26/17 Time of Evaluation: 09:00 - Subjective Subjective: Pulmonology Note for Dr. John's Service Patient seen and examined at bedside this morning. Patient on BiPAP, ROS unattainable. Objective - Vital Signs/Intake and Output Vital Signs (last 24 hours): Temp Pulse Resp BP Pulse Ox 98 F 100 H 25 H 138/70 100 03/26/17 08:52 03/26/17 08:52 03/26/17 08:52 03/26/17 10:52 03/26/17 08:52 Intake and Output: 03/26/17 03/26/17 06:59 18:59 Intake Total 200 Output Total 0 Balance 200 - Medications Medications: Current Medications Brimonidine Tartrate (Alphagan 0.2% Opht) 1 ml OU TID [facility] Last Admin: 03/26/17 09:53 Dose: 1 drop Collagenase (Santyl) 0 gm TOP DAILY [facility] Last Admin: 03/25/17 10:00 Dose: Not Given Dextrose (Dextrose 50% Inj) 0 ml IV STAT PRN; Protocol PRN Reason: Hyglycemia Protocol Dextrose (Glutose 15) 0 gm PO ONCE PRN; Protocol PRN Reason: Hypoglycemia Protocol Epoetin Maxwell (Procrit) 10,000 unit IV TTS [facility] Last Admin: 03/26/17 10:11 Dose: 10,000 unit Ergocalciferol (Drisdol 50,000 Intl Units Cap) 1 cap PO Q7D [facility] Last Admin: 03/24/17 00:47 Dose: 1 cap Ferric Sodium Gluconate Complex (Ferrlecit) 125 mg IVPB TTS [facility] Stop: 03/28/17 10:01 Last Admin: 03/26/17 10:10 Dose: 125 mg Glucagon (Glucagen Diagnostic Kit) 0 mg IM STAT PRN; Protocol PRN Reason: Hypoglycemia Protocol Fluconazole (Diflucan Iv 200 Mg/100 Ml Ns) 100 mls @ 100 mls/hr IVPB DAILY [facility] Last Admin: 03/26/17 09:52 Dose: 100 mls/hr Metronidazole (Flagyl) 500 mg in 100 mls @ 100 mls/hr IVPB Q8 [facility] Last Admin: 03/26/17 05:32 Dose: 100 mls/hr Insulin Glargine (Lantus) 25 unit SC HS [facility] Last Admin: 03/16/17 22:27 Dose: Not Given Insulin Human Regular (Novolin R) 0 unit SC ACHS [facility] PRN Reason: Protocol Last Admin: 03/26/17 07:45 Dose: Not Given Latanoprost (Xalatan Opht) 0.02 ml OU HS [facility] Last Admin: 03/25/17 22:20 Dose: 0.02 ml Lisinopril (Zestril) 20 mg PO DAILY [facility] Last Admin: 03/25/17 10:55 Dose: 20 mg Pantoprazole Sodium (Protonix Inj) 40 mg IVP DAILY [facility] Rosuvastatin Calcium (Crestor) 10 mg PO HS [facility] Last Admin: 03/25/17 22:15 Dose: Not Given Timolol Maleate (Timoptic 0.5% Oph Soln) 1 drop OU BID [facility] Last Admin: 03/26/17 09:44 Dose: 1 drop Vitamin B Complex/Vit C/Folic Acid (Nephro-Alonzo) 1 tab PO 0800 [facility] Last Admin: 03/26/17 09:27 Dose: Not Given - Labs Labs: 03/26/17 05:43 03/26/17 05:43 PT 12.3 SECONDS (9.7-12.2) H 02/18/17 05:30 INR 1.1 02/18/17 05:30 APTT 30 SECONDS (21-34) 02/18/17 05:30 - Additional Findings Additional findings: - Constitutional Appears: Toxic - Head Exam Head Exam: ATRAUMATIC, NORMAL INSPECTION - Eye Exam Eye Exam: EOMI, Normal appearance - ENT Exam ENT Exam: Mucous Membranes Dry - Respiratory Exam Respiratory Exam: Decreased Breath Sounds, Rales - Cardiovascular Exam Cardiovascular Exam: REGULAR RHYTHM, +S1, +S2 - GI/Abdominal Exam GI & Abdominal Exam: Normal Bowel Sounds, Soft - Extremities Exam Extremities exam: Positive for: tenderness. Negative for: normal inspection, pedal edema Additional comments: Majority of left plantar aspect of foot is necrotic. dressing clean dry and intact upper extremity edema - Neurological Exam Neurological exam: Altered - Skin Skin Exam: Warm Additional comments: left non healing foot ulcer Assessment and Plan - Assessment and Plan (Free Text) Assessment: Patient is a 71 y/o F with PMHx of HD, CHF, HTN, DM2, PVD with non healing right foot ulcer who went into respiratory distress and was transferred to ICU for closer monitoring. Plan: Respiratory Distress Secondary to Left > Right Pleural Effusion CXR 03/26: Moderate to severe venous congestion, large left and moderate right pleural effusion O2 Sat of 93% on NC BiPAP placed 10-5-12 100% O2, patient saturating at 100% Consider thoracentesis Non-Healing Left Heel Ulcer * ID (Amish) * Podiatry (Bennie) * recommended Left BKA * Vascular (Bobo) * recommended Left BKA * Low ext arterial duplex (02/04/17) * occlusion R post tib artery, 50-75% stenosis right mid popliteal & proximal anterior tib arteries * occlusion of left post tib artery, >75% stenosis left proximal ant tibial artery, 50-75% stenosis left distal SFA & proximal popliteal a. * Abdominal Angiography 02/19/17 * Severe bilateral lower extremity arterial runoff with 1 vessel likely remaining patent at the right. None is continuously patent at the left lower extremity [id number]. Widely patent abdominal aorta and iliac arterial system with moderate right and [id number] left femoral arterial disease. Severe bilateral popliteal artery arterial disease. * PICC replaced on 03/23/17, Cath flow administered on 03/24/17 - Questionable loss of PICC line access, LEFT FEMORAL TLC inserted 03/25 - PICC line is functioning, will most likely remove femoral TLC End Stage Renal Disease on Hemodialysis * Nephro (Halie) * TTS Failure to Thrive C. Diff Altered Mental Status Hypertension Anemia of Chronic Disease Diabetes As per Primary Team: Disposition: This patient has a very poor prognosis. The family wishes to try to save the leg despite multiple professional opinions on the necessity of an amputation. The family initially wished for the patient to go to [facility] where hyperbaric therapy is available in order to promote healing. They wished to be cared for by their personal sanitation lead Dr. Ware; however, Dr. Ware has become unavailable. So the family decided to remain at [facility] and attempt healing via vascular surgery to improve circulation and wound debridement of damaged tissue. They were repeatedly warned by multiple medical apparatus model maker of the risks associated with refusing a BKA and attempting to salvage the foot. The family verbalized understanding of the risks but still decide against a BKA at this time. DW Teri Holley DO, PGY-1 <Stalin John S - Last Filed: 03/26/17 16:30> Objective - Vital Signs/Intake and Output Vital Signs (last 24 hours): Temp Pulse Resp BP Pulse Ox 98.1 F 85 30 H 138/55 L 100 03/26/17 11:52 03/26/17 15:22 03/26/17 15:22 03/26/17 15:22 03/26/17 15:22 Intake and Output: 03/26/17 03/26/17 06:59 18:59 Intake Total 200 Output Total 0 Balance 200 - Medications Medications: Current Medications Brimonidine Tartrate (Alphagan 0.2% Opht) 1 ml OU TID [facility] Last Admin: 03/26/17 16:11 Dose: 1 drop Collagenase (Santyl) 0 gm TOP DAILY [facility] Last Admin: 03/26/17 13:35 Dose: Not Given Dextrose (Dextrose 50% Inj) 0 ml IV STAT PRN; Protocol PRN Reason: Hyglycemia Protocol Dextrose (Glutose 15) 0 gm PO ONCE PRN; Protocol PRN Reason: Hypoglycemia Protocol Epoetin Maxwell (Procrit) 10,000 unit IV TTS [facility] Last Admin: 03/26/17 10:11 Dose: 10,000 unit Ergocalciferol (Drisdol 50,000 Intl Units Cap) 1 cap PO Q7D [facility] Last Admin: 03/24/17 00:47 Dose: 1 cap Ferric Sodium Gluconate Complex (Ferrlecit) 125 mg IVPB TTS [facility] Stop: 03/28/17 10:01 Last Admin: 03/26/17 10:10 Dose: 125 mg Glucagon (Glucagen Diagnostic Kit) 0 mg IM STAT PRN; Protocol PRN Reason: Hypoglycemia Protocol Fluconazole (Diflucan Iv 200 Mg/100 Ml Ns) 100 mls @ 100 mls/hr IVPB DAILY [facility] Last Admin: 03/26/17 09:52 Dose: 100 mls/hr Metronidazole (Flagyl) 500 mg in 100 mls @ 100 mls/hr IVPB Q8 [facility] Last Admin: 03/26/17 14:00 Dose: 100 mls/hr Insulin Glargine (Lantus) 25 unit SC HS [facility] Last Admin: 03/16/17 22:27 Dose: Not Given Insulin Human Regular (Novolin R) 0 unit SC ACHS [facility] PRN Reason: Protocol Last Admin: 03/26/17 16:20 Dose: 4 unit Latanoprost (Xalatan Opht) 0.02 ml OU HS [facility] Last Admin: 03/25/17 22:20 Dose: 0.02 ml Lisinopril (Zestril) 20 mg PO DAILY [facility] Last Admin: 03/26/17 12:08 Dose: 20 mg Pantoprazole Sodium (Protonix Inj) 40 mg IVP DAILY [facility] Last Admin: 03/26/17 12:17 Dose: 40 mg Rosuvastatin Calcium (Crestor) 10 mg PO HS [facility] Last Admin: 03/25/17 22:15 Dose: Not Given Timolol [facility] O[facility] B[facility] Last Admin: 03/26/17 09:44 Dose: 1 drop Vitamin B Complex/Vit C/Folic Acid (Nephro-Alonzo) 1 tab PO 0800 [facility] Last Admin: 03/26/17 09:27 Dose: Not Given - Labs Labs: 03/26/17 05:43 03/26/17 05:43 PT 12.3 SECONDS (9.7-12.2) H 02/18/17 05:30 INR 1.1 02/18/17 05:30 APTT 30 SECONDS (21-34) 02/18/17 05:30 Assessment and Plan (1) Pleural effusion Status: Chronic (2) Change in mental status Status: Acute (3) Clostridium difficile colitis Status: Acute (4) End stage renal disease on dialysis Status: Acute Attending/Attestation - Attestation I have personally seen and examined this patient.: Yes I have fully participated in the care of the patient.: Yes I have reviewed all pertinent clinical information, including history, physical exam and plan: Yes Notes (Text): 03/26/17 16:29 patient seen and examined. Continue BiPAP as needed Seen during hemodialysis Thoracentesis Continue antibiotics
[2017-03-26] MEDS: Pantoprazole 40 mg EC Tab PO SCH (11:57)
--- NOTE | 2017-03-26 13:00 | CP.CCUPN ---
<AlmaWanda Gabriela - Last Filed: 03/26/17 18:54> CCU Subjective - Physician Review Subjective (Free Text): 03/26/17 11:00 Patient seen and examined at bedside while receiving hemodialysis. Patient remains lethargic and responsive only to name, ROS unobtainable at this time. CCU Objective - Vital Signs / Intake & Output Vital Signs (Last 4 hours): Vital Signs Temp Pulse Pulse Resp BP Pulse Ox 03/26/17 11:52 98.1 F 86 30 H 117/49 L 100 03/26/17 11:25 90 03/26/17 11:22 93/45 L 03/26/17 10:52 138/70 03/26/17 10:23 137/63 03/26/17 09:52 148/70 03/26/17 09:37 167/73 H 03/26/17 09:22 146/64 03/26/17 09:08 177/66 H Intake and Output (Last 8hrs): Intake & Output 03/25/17 03/26/17 03/26/17 22:59 06:59 14:59 Intake Total 350 100 Output Total 50 Balance 300 100 Intake: Intake, IV Amount 350 100 Right Femoral 350 100 Right Upper arm 0 Oral 0 Output: Urine 50 Urine, Voided 50 Stool 0 Emesis 0 Other: # Voids Urine, Voided 1 # Bowel Movements 1 1 - Physical Exam Head: Positive for: Atraumatic, Normocephalic Extroacular Muscles: Positive for: EOMI Conjunctiva: Positive for: Normal Mouth: Positive for: Dry Respiratory/Chest: Positive for: Decreased Breath Sounds, Rales Cardiovascular: Positive for: Normal S1, S2 Abdomen: Negative for: Tenderness, Distention Upper Extremity: Positive for: Edema Lower Extremity: Positive for: Other (Majority of left plantar aspect of foot is necrotic. dressing clean dry and intact). Negative for: Edema Skin: Positive for: Warm Psychiatric: Positive for: Alert. Negative for: Oriented x 3 - Medications Active Medications: Active Medications Generic Name Dose Route Start Last Admin Trade Name Freq PRN Reason Stop Dose Admin Brimonidine Tartrate 1 ml 02/20/17 19:00 03/26/17 09:53 Alphagan 0.2% Opht OU 1 drop TID ELINA Administration Collagenase 0 gm 03/18/17 10:00 03/25/17 10:00 Santyl TOP Not Given DAILY ELINA Dextrose 0 ml 02/27/17 12:44 Dextrose 50% Inj IV STAT PRN Hyglycemia Protocol Protocol Dextrose 0 gm 02/27/17 12:44 Glutose 15 PO ONCE PRN Hypoglycemia Protocol Protocol Epoetin [place] 10,000 unit 03/07/17 11:30 03/26/17 10:11 Procrit IV 10,000 unit TTS ELINA Administration Ergocalciferol 1 cap 03/24/17 00:15 03/24/17 00:47 Drisdol 50,000 Intl Units Cap PO 1 cap Q7D ELINA Administration Ferric Sodium Gluconate Complex 125 mg 03/19/17 13:00 03/26/17 10:10 Ferrlecit IVPB 03/28/17 10:01 125 mg TTS ELINA Administration Glucagon 0 mg 02/27/17 12:44 Glucagen Diagnostic Kit IM STAT PRN Hypoglycemia Protocol Protocol Fluconazole 100 mls @ 100 mls/hr 03/03/17 12:00 03/26/17 09:52 Diflucan Iv 200 Mg/100 Ml Ns IVPB 100 mls/hr DAILY ELINA Administration Metronidazole 500 mg in 100 mls @ 100 mls/hr 03/15/17 22:00 03/26/17 05:32 Flagyl IVPB 100 mls/hr Q8 ELINA Administration Insulin Glargine 25 unit 03/06/17 17:19 03/16/17 22:27 Lantus SC Not Given HS ELINA Insulin Human Regular 0 unit 03/18/17 16:30 03/26/17 12:08 Novolin R SC 4 unit ACHS ELINA Administration Protocol Latanoprost 0.02 ml 02/20/17 22:00 03/25/17 22:20 Xalatan Opht OU 0.02 ml HS ELINA Administration Lisinopril 20 mg 03/19/17 10:00 03/26/17 12:08 Zestril PO 20 mg DAILY ELINA Administration Pantoprazole Sodium 40 mg 03/26/17 12:00 03/26/17 12:17 Protonix Inj IVP 40 mg DAILY ELINA Administration Rosuvastatin Calcium 10 mg 02/18/17 22:00 03/25/17 22:15 Crestor PO Not Given HS ELINA Timolol Maleate 1 drop 02/20/17 19:00 03/26/17 09:44 Timoptic 0.5% Ophth Soln OU 1 drop BID ELINA Administration Vitamin B Complex/Vit C/Folic Acid 1 tab 03/16/17 08:00 03/26/17 09:27 Nephro-Kevin PO Not Given 0800 [facility] - Patient Studies Lab Studies: Lab Studies 03/26/17 03/26/17 03/26/17 Range/Units 11:13 07:21 05:43 WBC (4.8-10.8) K/uL RBC (3.80-5.20) Mil/uL Hgb (11.0-16.0) g/dL Hct (34.0-47.0) % MCV (81.0-99.0) fL MCH (27.0-31.0) pg MCHC (33.0-37.0) g/dL RDW (11.5-14.5) % Plt Count (130-400) K/uL MPV (7.2-11.7) fL Neut % (Auto) (50.0-75.0) % Lymph % (Auto) (20.0-40.0) % [place] % (Auto) (0.0-10.0) % Eos % (Auto) (0.0-4.0) % Baso % (Auto) (0.0-2.0) % Neut # (1.8-7.0) K/uL Lymph # (1.0-4.3) K/uL [place] # (0.0-0.8) K/uL Eos # (0.0-0.7) K/uL Baso # (0.0-0.2) K/uL Neutrophils % (Manual) (50-75) % Band Neutrophils % (0-2) % Lymphocytes % (Manual) (20-40) % Monocytes % (Manual) (0-10) % Platelet Estimate (NORMAL) Hypochromasia (manual) Anisocytosis (manual) Sodium 129 L (132-148) mmol/L Potassium 3.4 L (3.6-5.2) mmol/L Chloride 98 (98-107) mmol/L Carbon Dioxide 27 (22-30) mmol/L Anion Gap 7 L (10-20) BUN 28 H (7-17) mg/dL Creatinine 1.1 (0.7-1.2) mg/dL Est GFR ( Amer) 59 Est GFR (Non-Af Amer) 49 POC Glucose (mg/dL) 213 H 137 H (65-110) mg/dL Random Glucose 81 (65-105) mg/dL Calcium 7.2 L (8.6-10.4) mg/dl Phosphorus 2.2 L (2.5-4.5) mg/dL Magnesium 1.9 (1.6-2.3) mg/dL Total Bilirubin 0.4 (0.2-1.3) mg/dL AST 88 H (14-36) U/L ALT 37 (9-52) U/L Alkaline Phosphatase 184 H D (38-126) U/L Total Protein 5.3 L (6.3-8.3) g/dL Albumin 2.1 L (3.5-5.0) g/dL Globulin 3.2 (2.2-3.9) gm/dL Albumin/Globulin Ratio 0.7 L (1.0-2.1) Procalcitonin (0.19-0.49) NG/ML 03/26/17 03/25/17 03/25/17 Range/Units 05:43 21:10 16:22 WBC 19.5 H (4.8-10.8) K/uL RBC 2.83 L (3.80-5.20) Mil/uL Hgb 8.6 L (11.0-16.0) g/dL Hct 27.2 L (34.0-47.0) % MCV 95.9 D (81.0-99.0) fL MCH 30.3 (27.0-31.0) pg MCHC 31.6 L (33.0-37.0) g/dL RDW 22.8 H (11.5-14.5) % Plt Count 367 (130-400) K/uL MPV 7.9 (7.2-11.7) fL Neut % (Auto) 83.7 H (50.0-75.0) % Lymph % (Auto) 8.1 L (20.0-40.0) % [place] % (Auto) 7.1 (0.0-10.0) % Eos % (Auto) 0.9 (0.0-4.0) % Baso % (Auto) 0.2 (0.0-2.0) % Neut # 16.3 H (1.8-7.0) K/uL Lymph # 1.6 (1.0-4.3) K/uL [place] # 1.4 H (0.0-0.8) K/uL Eos # 0.2 (0.0-0.7) K/uL Baso # 0.0 (0.0-0.2) K/uL Neutrophils % (Manual) 80 H (50-75) % Band Neutrophils % 2 (0-2) % Lymphocytes % (Manual) 11 L (20-40) % Monocytes % (Manual) 7 (0-10) % Platelet Estimate Normal (NORMAL) Hypochromasia (manual) Slight Anisocytosis (manual) Moderate Sodium (132-148) mmol/L Potassium (3.6-5.2) mmol/L Chloride (98-107) mmol/L Carbon Dioxide (22-30) mmol/L Anion Gap (10-20) BUN (7-17) mg/dL Creatinine (0.7-1.2) mg/dL Est GFR ( Amer) Est GFR (Non-Af Amer) POC Glucose (mg/dL) 184 H 359 H (65-110) mg/dL Random Glucose (65-105) mg/dL Calcium (8.6-10.4) mg/dl Phosphorus (2.5-4.5) mg/dL Magnesium (1.6-2.3) mg/dL Total Bilirubin (0.2-1.3) mg/dL AST (14-36) U/L ALT (9-52) U/L Alkaline Phosphatase (38-126) U/L Total Protein (6.3-8.3) g/dL Albumin (3.5-5.0) g/dL Globulin (2.2-3.9) gm/dL Albumin/Globulin Ratio (1.0-2.1) Procalcitonin (0.19-0.49) NG/ML 03/25/17 03/25/17 03/25/17 Range/Units 15:04 15:04 15:04 WBC 17.9 H (4.8-10.8) K/uL RBC 2.78 L (3.80-5.20) Mil/uL Hgb 8.4 L (11.0-16.0) g/dL Hct 27.3 L (34.0-47.0) % MCV 98.2 (81.0-99.0) fL MCH 30.2 (27.0-31.0) pg MCHC 30.8 L (33.0-37.0) g/dL RDW 22.9 H (11.5-14.5) % Plt Count 452 H (130-400) K/uL MPV 8.5 (7.2-11.7) fL Neut % (Auto) 90.6 H (50.0-75.0) % Lymph % (Auto) 4.4 L (20.0-40.0) % [place] % (Auto) 4.8 (0.0-10.0) % Eos % (Auto) 0.0 (0.0-4.0) % Baso % (Auto) 0.2 (0.0-2.0) % Neut # 16.2 H (1.8-7.0) K/uL Lymph # 0.8 L (1.0-4.3) K/uL [place] # 0.9 H (0.0-0.8) K/uL Eos # 0.0 (0.0-0.7) K/uL Baso # 0.0 (0.0-0.2) K/uL Neutrophils % (Manual) 95 H (50-75) % Band Neutrophils % (0-2) % Lymphocytes % (Manual) 3 L (20-40) % Monocytes % (Manual) 2 (0-10) % Platelet Estimate Slightly increased H (NORMAL) Hypochromasia (manual) Anisocytosis (manual) Slight Sodium 127 L (132-148) mmol/L Potassium 3.7 (3.6-5.2) mmol/L Chloride 93 L (98-107) mmol/L Carbon Dioxide 24 (22-30) mmol/L Anion Gap 14 (10-20) BUN 26 H (7-17) mg/dL Creatinine 1.2 (0.7-1.2) mg/dL Est GFR ( Amer) 54 Est GFR (Non-Af Amer) 44 POC Glucose (mg/dL) (65-110) mg/dL Random Glucose 503 H* (65-105) mg/dL Calcium 7.7 L (8.6-10.4) mg/dl Phosphorus 2.8 (2.5-4.5) mg/dL Magnesium 2.0 (1.6-2.3) mg/dL Total Bilirubin 0.4 (0.2-1.3) mg/dL AST 85 H D (14-36) U/L ALT 32 (9-52) U/L Alkaline Phosphatase 262 H D (38-126) U/L Total Protein 6.1 L (6.3-8.3) g/dL Albumin 2.5 L (3.5-5.0) g/dL Globulin 3.6 (2.2-3.9) gm/dL Albumin/Globulin Ratio 0.7 L (1.0-2.1) Procalcitonin 3.50 H (0.19-0.49) NG/ML Laboratory Results - last 24 hr 03/25/17 03/25/17 03/25/17 15:04 15:04 15:04 WBC 17.9 H RBC 2.78 L Hgb 8.4 L Hct 27.3 L MCV 98.2 MCH 30.2 MCHC 30.8 L RDW 22.9 H Plt Count 452 H MPV 8.5 Neut % (Auto) 90.6 H Lymph % (Auto) 4.4 L [place] % (Auto) 4.8 Eos % (Auto) 0.0 Baso % (Auto) 0.2 Neut # 16.2 H Lymph # 0.8 L [place] # 0.9 H Eos # 0.0 Baso # 0.0 Neutrophils % (Manual) 95 H Band Neutrophils % Lymphocytes % (Manual) 3 L Monocytes % (Manual) 2 Platelet Estimate Slightly increased H Hypochromasia (manual) Anisocytosis (manual) Slight Sodium 127 L Potassium 3.7 Chloride 93 L Carbon Dioxide 24 Anion Gap 14 BUN 26 H Creatinine 1.2 Est GFR ( Amer) 54 Est GFR (Non-Af Amer) 44 POC Glucose (mg/dL) Random Glucose 503 H* Calcium 7.7 L Phosphorus 2.8 Magnesium 2.0 Total Bilirubin 0.4 AST 85 H D ALT 32 Alkaline Phosphatase 262 H D Total Protein 6.1 L Albumin 2.5 L Globulin 3.6 Albumin/Globulin Ratio 0.7 L Procalcitonin 3.50 H 03/25/17 03/25/1717 16:22 21:10 05:43 WBC 19.5 H RBC 2.83 L Hgb 8.6 L Hct 27.2 L MCV 95.9 D MCH 30.3 MCHC 31.6 L RDW 22.8 H Plt Count 367 MPV 7.9 Neut % (Auto) 83.7 H Lymph % (Auto) 8.1 L [place] % (Auto) 7.1 Eos % (Auto) 0.9 Baso % (Auto) 0.2 Neut # 16.3 H Lymph # 1.6 [place] # 1.4 H Eos # 0.2 Baso # 0.0 Neutrophils % (Manual) 80 H Band Neutrophils % 2 Lymphocytes % (Manual) 11 L Monocytes % (Manual) 7 Platelet Estimate Normal Hypochromasia (manual) Slight Anisocytosis (manual) Moderate Sodium Potassium Chloride Carbon Dioxide Anion Gap BUN Creatinine Est GFR ( Amer) Est GFR (Non-Af Amer) POC Glucose (mg/dL) 359 H 184 H Random Glucose Calcium Phosphorus Magnesium Total Bilirubin AST ALT Alkaline Phosphatase Total Protein Albumin Globulin Albumin/Globulin Ratio Procalcitonin 03/26/17 03/26/17 03/26/17 05:43 07:21 11:13 WBC RBC Hgb Hct MCV MCH MCHC RDW Plt Count MPV Neut % (Auto) Lymph % (Auto) [place] % (Auto) Eos % (Auto) Baso % (Auto) Neut # Lymph # [place] # Eos # Baso # Neutrophils % (Manual) Band Neutrophils % Lymphocytes % (Manual) Monocytes % (Manual) Platelet Estimate Hypochromasia (manual) Anisocytosis (manual) Sodium 129 L Potassium 3.4 L Chloride 98 Carbon Dioxide 27 Anion Gap 7 L BUN 28 H Creatinine 1.1 Est GFR ( Amer) 59 Est GFR (Non-Af Amer) 49 POC Glucose (mg/dL) 137 H 213 H Random Glucose 81 Calcium 7.2 L Phosphorus 2.2 L Magnesium 1.9 Total Bilirubin 0.4 AST 88 H ALT 37 Alkaline Phosphatase 184 H D Total Protein 5.3 L Albumin 2.1 L Globulin 3.2 Albumin/Globulin Ratio 0.7 L Procalcitonin Fingerstick Blood Sugar Results: 184 Review of Systems - Review of Systems Systems not reviewed;Unavailable: Acuity of Condition Critical Care Progress Note - Nutrition Nutrition: Nutrition Category Date Time Status Soft [Dysphagia/Modified Consistency Diet] [DIET] Diets 03/18/17 Lunch Active Assessment/Plan - Assessment and Plan (Free Text) Assessment: Patient is a 71 y/o F with PMHx of HD, CHF, HTN, DM2, PVD with non healing right foot ulcer who went into respiratory distress and was transferred to ICU for closer monitoring. Neuro: Altered mental status, likely secondary to poor glycemic control - Neurology on board (Dr. Aguirre) - CT head negative for acute infarction - Discontinued all pain medications, will add tylenol PRN if patient needs pain control Cardio: Tachycardic, CHF, HTN. PVD - Echo showed 61% LVEF 03/09/17 - Vascular surgery on board (Dr. Broussard) for PVD - lisonopril 20mg PO QD - Crestor 10 mg PO HS - R femoral line placed in ICU Pulm: respiratory distress - O2 Sat of 93% on NC - BiPAP placed 02-26- 100% O2, patient saturating at 100% Nephro: ESRD on hemodialysis - Pt undergoes hemodialysis //Thu, will dialyze daily to resolve altered mentation - Multiple electrolyte abnormalities throughout this admission, monitor CMPs+ magnesium and phsophorous daily - PICC line inserted by IR 03/23/17 now functional, R femoral line removed - Permacath removed by surgery - Ergocalcierol 1 capsule PO Q7D Endo: Type 2 Diabetes, poorly controlled - Random glucose levels in 300s-400s throughout admission, latest at 478 this AM - A1c of 8.9 02/18/17 -accuchecks - Regular Insulin high dose protocol - Lantus 25u SC HS GI: Failure to thrive/decreased appetite, dysphagia - GI consult on board (Albino) - As of 03/19/17 GI did not recommend PEG placement due to patient's significant medical comorbidities - Soft diet - C dif neg (02/28) Heme: Anemia of chronic disease - Hgb 8.3 03/21/17 - Procrit 10,000U IV on dialysis days - Barak MSK: -Low ext arterial duplex (02/04/17) -occlusion R post tib artery, 50-75% stenosis right mid popliteal & proximal anterior tib arteries -occlusion of left post tib artery, >75% stenosis left proximal ant tibial artery, 50-75% stenosis left distal SFA & proximal popliteal a. - Podiatry on board (Dr. Avery) for left foot diabetic ulcer - Pt's family refuses lower extremity amputation at this time despite recommendations from Dr. Avery and Dr. Broussard ID: Non-healing left heel ulcer, previously VRE positive - WBC elevated and increased at 19.5 03/26/17 - VRE (left foot ulcer) and C. diff positive on admission, currently resolved - Infectious Disease on board (Dr. Wellington) - On Flagyl and Fluconazole per Dr. Wellington - Podiatry on board (Dr. Avery) for left foot diabetic ulcer - Pt's family refuses lower extremity amputation at this time despite recommendations from Dr. Avery and Dr. Broussard PPX: - Protonix 40mg PO switched to IVP - Nephro-kevin vitamins - SCDs <LatefJan Susana - Last Filed: 03/26/17 19:08> CCU Objective - Vital Signs / Intake & Output Vital Signs (Last 4 hours): Vital Signs Temp Pulse Resp BP Pulse Ox 03/26/17 18:22 83 32 H 140/33 L 100 03/26/17 18:00 98.1 F 03/26/17 17:22 82 30 H 130/38 L 100 03/26/17 16:52 90 33 H 131/51 L 100 03/26/17 16:21 84 32 H 159/60 H 100 03/26/17 15:22 85 30 H 138/55 L 100 Intake and Output (Last 8hrs): Intake & Output 03/26/17 03/26/17 03/26/17 06:59 14:59 22:59 Intake Total 100 350 200 Balance 100 350 200 Intake: Intake, IV Amount 100 200 Right Femoral 100 200 Oral 150 200 Other: # Bowel Movements 1 1 0 - Medications Active Medications: Active Medications Generic Name Dose Route Start Last Admin Trade Name Freq PRN Reason Stop Dose Admin Brimonidine Tartrate 1 ml 02/20/17 19:00 03/26/17 17:08 Alphagan 0.2% Opht OU 1 drop TID ELINA Administration Collagenase 0 gm 03/18/17 10:00 03/26/17 13:35 Santyl TOP Not Given DAILY ELINA Dextrose 0 ml 02/27/17 12:44 Dextrose 50% Inj IV STAT PRN Hyglycemia Protocol Protocol Dextrose 0 gm 02/27/17 12:44 Glutose 15 PO ONCE PRN Hypoglycemia Protocol Protocol Epoetin [place] 10,000 unit 03/07/17 11:30 03/26/17 10:11 Procrit IV 10,000 unit TTS ELINA Administration Ergocalciferol 1 cap 03/24/17 00:15 03/24/17 00:47 Drisdol 50,000 Intl Units Cap PO 1 cap Q7D ELINA Administration Ferric Sodium Gluconate Complex 125 mg 03/19/17 13:00 03/26/17 10:10 Ferrlecit IVPB 03/28/17 10:01 125 mg TTS ELINA Administration Glucagon 0 mg 02/27/17 12:44 Glucagen Diagnostic Kit IM STAT PRN Hypoglycemia Protocol Protocol Fluconazole 100 mls @ 100 mls/hr 03/03/17 12:00 03/26/17 09:52 Diflucan Iv 200 Mg/100 Ml Ns IVPB 100 mls/hr DAILY ELINA Administration Metronidazole 500 mg in 100 mls @ 100 mls/hr 03/15/17 22:00 03/26/17 14:00 Flagyl IVPB 100 mls/hr Q8 ELINA Administration Insulin Glargine 25 unit 03/06/17 17:19 03/16/17 22:27 Lantus SC Not Given HS ELINA Insulin Human Regular 0 unit 03/18/17 16:30 03/26/17 16:20 Novolin R SC 4 unit ACHS ELINA Administration Protocol Latanoprost 0.02 ml 02/20/17 22:00 03/25/17 22:20 Xalatan Opht OU 0.02 ml HS ELINA Administration Lisinopril 20 mg 03/19/17 10:00 03/26/17 12:08 Zestril PO 20 mg DAILY ELINA Administration Pantoprazole Sodium 40 mg 03/26/17 12:00 03/26/17 12:17 Protonix Inj IVP 40 mg DAILY ELINA Administration Rosuvastatin Calcium 10 mg 02/18/17 22:00 03/25/17 22:15 Crestor PO Not Given HS ELINA Timolol Maleate 1 drop 02/20/17 19:00 03/26/17 17:08 Timoptic 0.5% Ophth Soln OU 1 drop BID ELINA Administration Vitamin B Complex/Vit C/Folic Acid 1 tab 03/16/17 08:00 03/26/17 09:27 Nephro-Kevin PO Not Given 0800 ELINA - Patient Studies Lab Studies: Microbiology Studies 03/25/17 18:00 Blood Culture - Preliminary Blood NO GROWTH AFTER 24 HOURS 03/25/17 18:00 Blood Culture - Preliminary Blood NO GROWTH AFTER 24 HOURS 03/25/17 16:00 MRSA Culture (Admit) - Final Naris MRSA NOT DETECTED Lab Studies 03/26/17 03/26/17 03/26/17 Range/Units 16:19 13:05 11:13 WBC (4.8-10.8) K/uL RBC (3.80-5.20) Mil/uL Hgb (11.0-16.0) g/dL Hct (34.0-47.0) % MCV (81.0-99.0) fL MCH (27.0-31.0) pg MCHC (33.0-37.0) g/dL RDW (11.5-14.5) % Plt Count (130-400) K/uL MPV (7.2-11.7) fL Neut % (Auto) (50.0-75.0) % Lymph % (Auto) (20.0-40.0) % [place] % (Auto) (0.0-10.0) % Eos % (Auto) (0.0-4.0) % Baso % (Auto) (0.0-2.0) % Neut # (1.8-7.0) K/uL Lymph # (1.0-4.3) K/uL [place] # (0.0-0.8) K/uL Eos # (0.0-0.7) K/uL Baso # (0.0-0.2) K/uL Neutrophils % (Manual) (50-75) % Band Neutrophils % (0-2) % Lymphocytes % (Manual) (20-40) % Monocytes % (Manual) (0-10) % Platelet Estimate (NORMAL) Hypochromasia (manual) Anisocytosis (manual) Puncture Site Lf pCO2 34 L (35-45) mm/Hg pO2 95 (80-100) mm/Hg HCO3 25.8 (21-28) mmol/L ABG pH 7.47 H (7.35-7.45) ABG Total CO2 25.7 (22-28) mmol/L ABG O2 Saturation 98.7 H (95-98) % ABG Base Excess 1.1 (-2.0-3.0) mmol/L ABG Hemoglobin 8.5 L (11.7-17.4) g/dL ABG Carboxyhemoglobin 1.8 H (0.5-1.5) % POC ABG HHb (Measured) 1.3 (0.0-5.0) % ABG Methemoglobin 1.1 (0.0-3.0) % Joey Test Na Hgb O2 Saturation 95.8 (95.0-98.0) % Liter Flow 5.0 Sodium (132-148) mmol/L Potassium (3.6-5.2) mmol/L Chloride (98-107) mmol/L Carbon Dioxide (22-30) mmol/L Anion Gap (10-20) BUN (7-17) mg/dL Creatinine (0.7-1.2) mg/dL Est GFR ( Amer) Est GFR (Non-Af Amer) POC Glucose (mg/dL) 249 H 213 H (65-110) mg/dL Random Glucose (65-105) mg/dL Calcium (8.6-10.4) mg/dl Phosphorus (2.5-4.5) mg/dL Magnesium (1.6-2.3) mg/dL Total Bilirubin (0.2-1.3) mg/dL AST (14-36) U/L ALT (9-52) U/L Alkaline Phosphatase (38-126) U/L Total Protein (6.3-8.3) g/dL Albumin (3.5-5.0) g/dL Globulin (2.2-3.9) gm/dL Albumin/Globulin Ratio (1.0-2.1) 03/26/17 03/26/17 03/26/17 Range/Units 07:21 05:43 05:43 WBC 19.5 H (4.8-10.8) K/uL RBC 2.83 L (3.80-5.20) Mil/uL Hgb 8.6 L (11.0-16.0) g/dL Hct 27.2 L (34.0-47.0) % MCV 95.9 D (81.0-99.0) fL MCH 30.3 (27.0-31.0) pg MCHC 31.6 L (33.0-37.0) g/dL RDW 22.8 H (11.5-14.5) % Plt Count 367 (130-400) K/uL MPV 7.9 (7.2-11.7) fL Neut % (Auto) 83.7 H (50.0-75.0) % Lymph % (Auto) 8.1 L (20.0-40.0) % [place] % (Auto) 7.1 (0.0-10.0) % Eos % (Auto) 0.9 (0.0-4.0) % Baso % (Auto) 0.2 (0.0-2.0) % Neut # 16.3 H (1.8-7.0) K/uL Lymph # 1.6 (1.0-4.3) K/uL [place] # 1.4 H (0.0-0.8) K/uL Eos # 0.2 (0.0-0.7) K/uL Baso # 0.0 (0.0-0.2) K/uL Neutrophils % (Manual) 80 H (50-75) % Band Neutrophils % 2 (0-2) % Lymphocytes % (Manual) 11 L (20-40) % Monocytes % (Manual) 7 (0-10) % Platelet Estimate Normal (NORMAL) Hypochromasia (manual) Slight Anisocytosis (manual) Moderate Puncture Site pCO2 (35-45) mm/Hg pO2 (80-100) mm/Hg HCO3 (21-28) mmol/L ABG pH (7.35-7.45) ABG Total CO2 (22-28) mmol/L ABG O2 Saturation (95-98) % ABG Base Excess (-2.0-3.0) mmol/L ABG Hemoglobin (11.7-17.4) g/dL ABG Carboxyhemoglobin (0.5-1.5) % POC ABG HHb (Measured) (0.0-5.0) % ABG Methemoglobin (0.0-3.0) % Joey Test Hgb O2 Saturation (95.0-98.0) % Liter Flow Sodium 129 L (132-148) mmol/L Potassium 3.4 L (3.6-5.2) mmol/L Chloride 98 (98-107) mmol/L Carbon Dioxide 27 (22-30) mmol/L Anion Gap 7 L (10-20) BUN 28 H (7-17) mg/dL Creatinine 1.1 (0.7-1.2) mg/dL Est GFR ( Amer) 59 Est GFR (Non-Af Amer) 49 POC Glucose (mg/dL) 137 H (65-110) mg/dL Random Glucose 81 (65-105) mg/dL Calcium 7.2 L (8.6-10.4) mg/dl Phosphorus 2.2 L (2.5-4.5) mg/dL Magnesium 1.9 (1.6-2.3) mg/dL Total Bilirubin 0.4 (0.2-1.3) mg/dL AST 88 H (14-36) U/L ALT 37 (9-52) U/L Alkaline Phosphatase 184 H D (38-126) U/L Total Protein 5.3 L (6.3-8.3) g/dL Albumin 2.1 L (3.5-5.0) g/dL Globulin 3.2 (2.2-3.9) gm/dL Albumin/Globulin Ratio 0.7 L (1.0-2.1) 03/25/17 Range/Units 21:10 WBC (4.8-10.8) K/uL RBC (3.80-5.20) Mil/uL Hgb (11.0-16.0) g/dL Hct (34.0-47.0) % MCV (81.0-99.0) fL MCH (27.0-31.0) pg MCHC (33.0-37.0) g/dL RDW (11.5-14.5) % Plt Count (130-400) K/uL MPV (7.2-11.7) fL Neut % (Auto) (50.0-75.0) % Lymph % (Auto) (20.0-40.0) % [place] % (Auto) (0.0-10.0) % Eos % (Auto) (0.0-4.0) % Baso % (Auto) (0.0-2.0) % Neut # (1.8-7.0) K/uL Lymph # (1.0-4.3) K/uL [place] # (0.0-0.8) K/uL Eos # (0.0-0.7) K/uL Baso # (0.0-0.2) K/uL Neutrophils % (Manual) (50-75) % Band Neutrophils % (0-2) % Lymphocytes % (Manual) (20-40) % Monocytes % (Manual) (0-10) % Platelet Estimate (NORMAL) Hypochromasia (manual) Anisocytosis (manual) Puncture Site pCO2 (35-45) mm/Hg pO2 (80-100) mm/Hg HCO3 (21-28) mmol/L ABG pH (7.35-7.45) ABG Total CO2 (22-28) mmol/L ABG O2 Saturation (95-98) % ABG Base Excess (-2.0-3.0) mmol/L ABG Hemoglobin (11.7-17.4) g/dL ABG Carboxyhemoglobin (0.5-1.5) % POC ABG HHb (Measured) (0.0-5.0) % ABG Methemoglobin (0.0-3.0) % Joey Test Hgb O2 Saturation (95.0-98.0) % Liter Flow Sodium (132-148) mmol/L Potassium (3.6-5.2) mmol/L Chloride (98-107) mmol/L Carbon Dioxide (22-30) mmol/L Anion Gap (10-20) BUN (7-17) mg/dL Creatinine (0.7-1.2) mg/dL Est GFR ( Amer) Est GFR (Non-Af Amer) POC Glucose (mg/dL) 184 H (65-110) mg/dL Random Glucose (65-105) mg/dL Calcium (8.6-10.4) mg/dl Phosphorus (2.5-4.5) mg/dL Magnesium (1.6-2.3) mg/dL Total Bilirubin (0.2-1.3) mg/dL AST (14-36) U/L ALT (9-52) U/L Alkaline Phosphatase (38-126) U/L Total Protein (6.3-8.3) g/dL Albumin (3.5-5.0) g/dL Globulin (2.2-3.9) gm/dL Albumin/Globulin Ratio (1.0-2.1) Laboratory Results - last 24 hr 03/25/17 03/26/17 03/26/17 21:10 05:43 05:43 WBC 19.5 H RBC 2.83 L Hgb 8.6 L Hct 27.2 L MCV 95.9 D MCH 30.3 MCHC 31.6 L RDW 22.8 H Plt Count 367 MPV 7.9 Neut % (Auto) 83.7 H Lymph % (Auto) 8.1 L [place] % (Auto) 7.1 Eos % (Auto) 0.9 Baso % (Auto) 0.2 Neut # 16.3 H Lymph # 1.6 [place] # 1.4 H Eos # 0.2 Baso # 0.0 Neutrophils % (Manual) 80 H Band Neutrophils % 2 Lymphocytes % (Manual) 11 L Monocytes % (Manual) 7 Platelet Estimate Normal Hypochromasia (manual) Slight Anisocytosis (manual) Moderate Puncture Site pCO2 pO2 HCO3 ABG pH ABG Total CO2 ABG O2 Saturation ABG Base Excess ABG Hemoglobin ABG Carboxyhemoglobin POC ABG HHb (Measured) ABG Methemoglobin Joey Test Hgb O2 Saturation Liter Flow Sodium 129 L Potassium 3.4 L Chloride 98 Carbon Dioxide 27 Anion Gap 7 L BUN 28 H Creatinine 1.1 Est GFR ( Amer) 59 Est GFR (Non-Af Amer) 49 POC Glucose (mg/dL) 184 H Random Glucose 81 Calcium 7.2 L Phosphorus 2.2 L Magnesium 1.9 Total Bilirubin 0.4 AST 88 H ALT 37 Alkaline Phosphatase 184 H D Total Protein 5.3 L Albumin 2.1 L Globulin 3.2 Albumin/Globulin Ratio 0.7 L 03/26/17 03/26/17 03/26/17 07:21 11:13 13:05 WBC RBC Hgb Hct MCV MCH MCHC RDW Plt Count MPV Neut % (Auto) Lymph % (Auto) [place] % (Auto) Eos % (Auto) Baso % (Auto) Neut # Lymph # [place] # Eos # Baso # Neutrophils % (Manual) Band Neutrophils % Lymphocytes % (Manual) Monocytes % (Manual) Platelet Estimate Hypochromasia (manual) Anisocytosis (manual) Puncture Site Lf pCO2 34 L pO2 95 HCO3 25.8 ABG pH 7.47 H ABG Total CO2 25.7 ABG O2 Saturation 98.7 H ABG Base Excess 1.1 ABG Hemoglobin 8.5 L ABG Carboxyhemoglobin 1.8 H POC ABG HHb (Measured) 1.3 ABG Methemoglobin 1.1 Joey Test Na Hgb O2 Saturation 95.8 Liter Flow 5.0 Sodium Potassium Chloride Carbon Dioxide Anion Gap BUN Creatinine Est GFR ( Amer) Est GFR (Non-Af Amer) POC Glucose (mg/dL) 137 H 213 H Random Glucose Calcium Phosphorus Magnesium Total Bilirubin AST ALT Alkaline Phosphatase Total Protein Albumin Globulin Albumin/Globulin Ratio 03/26/17 16:19 WBC RBC Hgb Hct MCV MCH MCHC RDW Plt Count MPV Neut % (Auto) Lymph % (Auto) [place] % (Auto) Eos % (Auto) Baso % (Auto) Neut # Lymph # [place] # Eos # Baso # Neutrophils % (Manual) Band Neutrophils % Lymphocytes % (Manual) Monocytes % (Manual) Platelet Estimate Hypochromasia (manual) Anisocytosis (manual) Puncture Site pCO2 pO2 HCO3 ABG pH ABG Total CO2 ABG O2 Saturation ABG Base Excess ABG Hemoglobin ABG Carboxyhemoglobin POC ABG HHb (Measured) ABG Methemoglobin Joey Test Hgb O2 Saturation Liter Flow Sodium Potassium Chloride Carbon Dioxide Anion Gap BUN Creatinine Est GFR ( Amer) Est GFR (Non-Af Amer) POC Glucose (mg/dL) 249 H Random Glucose Calcium Phosphorus Magnesium Total Bilirubin AST ALT Alkaline Phosphatase Total Protein Albumin Globulin Albumin/Globulin Ratio Critical Care Progress Note - Nutrition Nutrition: Nutrition Category Date Time Status Soft [Dysphagia/Modified Consistency Diet] [DIET] Diets 03/18/17 Lunch Active Attending/Attestation - Attestation I have personally seen and examined this patient.: Yes I have fully participated in the care of the patient.: Yes I have reviewed all pertinent clinical information: Yes Notes (Text): 03/26/17 19:08 Today: March The Patient was seen and examined at the bedside, Medical records reviewed, and management issues were discussed and formulated with the house staff. I have reviewed all the relevant clinical, laboratory, hemodynamic, radiographic data and medications Events reviewed Pain issues, skin care, head of the bed elevation, glycemic control were addressed. I concur with resident's assessment and plan of care as transcribed in Dr. Marquez note.
[2017-03-26 13:20] LABS: ARTERIAL BLOOD HGB O2 SAT 95.8 % (95.0-98.0); CARBOXYHEMOGLOBIN 1.8 % (0.5-1.5); DRAW SITE LF; HHB 1.3 % (0.0-5.0); METHEMOGLOBIN 1.1 % (0.0-3.0)
[2017-03-26] MEDS: Collagenase 250 Units/gm Ointment(30 gm) TOP SCH (13:35)
--- NOTE | 2017-03-26 18:28 | CP.PCM.PN ---
Subjective - Date & Time of Evaluation Date of Evaluation: 03/26/17 Time of Evaluation: 09:00 - Subjective Subjective: hemodynamically stable refusing bks left foot necrotic Objective - Vital Signs/Intake and Output Vital Signs (last 24 hours): Temp Pulse Resp BP Pulse Ox 98.1 F 82 30 H 130/38 L 100 03/26/17 11:52 03/26/17 17:22 03/26/17 17:22 03/26/17 17:22 03/26/17 17:22 Intake and Output: 03/26/17 03/26/17 06:59 18:59 Intake Total 200 550 Output Total 0 Balance 200 550 - Medications Medications: Current Medications Brimonidine Tartrate (Alphagan 0.2% Opht) 1 ml OU TID [facility] Last Admin: 03/26/17 17:08 Dose: 1 drop Collagenase (Santyl) 0 gm TOP DAILY [facility] Last Admin: 03/26/17 13:35 Dose: Not Given Dextrose (Dextrose 50% Inj) 0 ml IV STAT PRN; Protocol PRN Reason: Hyglycemia Protocol Dextrose (Glutose 15) 0 gm PO ONCE PRN; Protocol PRN Reason: Hypoglycemia Protocol Epoetin Maxwell (Procrit) 10,000 unit IV TTS [facility] Last Admin: 03/26/17 10:11 Dose: 10,000 unit Ergocalciferol (Drisdol 50,000 Intl Units Cap) 1 cap PO Q7D [facility] Last Admin: 03/24/17 00:47 Dose: 1 cap Ferric Sodium Gluconate Complex (Ferrlecit) 125 mg IVPB TTS [facility] Stop: 03/28/17 10:01 Last Admin: 03/26/17 10:10 Dose: 125 mg Glucagon (Glucagen Diagnostic Kit) 0 mg IM STAT PRN; Protocol PRN Reason: Hypoglycemia Protocol Fluconazole (Diflucan Iv 200 Mg/100 Ml Ns) 100 mls @ 100 mls/hr IVPB DAILY [facility] Last Admin: 03/26/17 09:52 Dose: 100 mls/hr Metronidazole (Flagyl) 500 mg in 100 mls @ 100 mls/hr IVPB Q8 [facility] Last Admin: 03/26/17 14:00 Dose: 100 mls/hr Insulin Glargine (Lantus) 25 unit SC HS [facility] Last Admin: 03/16/17 22:27 Dose: Not Given Insulin Human Regular (Novolin R) 0 unit SC ACHS [facility] PRN Reason: Protocol Last Admin: 03/26/17 16:20 Dose: 4 unit Latanoprost (Xalatan Opht) 0.02 ml OU HS [facility] Last Admin: 03/25/17 22:20 Dose: 0.02 ml Lisinopril (Zestril) 20 mg PO DAILY [facility] Last Admin: 03/26/17 12:08 Dose: 20 mg Pantoprazole Sodium (Protonix Inj) 40 mg IVP DAILY [facility] Last Admin: 03/26/17 12:17 Dose: 40 mg Rosuvastatin Calcium (Crestor) 10 mg PO HS [facility] Last Admin: 03/25/17 22:15 Dose: Not Given Timolol Maleate (Timoptic 0.5% Oph Soln) 1 drop OU BID [facility] Last Admin: 03/26/17 17:08 Dose: 1 drop Vitamin B Complex/Vit C/Folic Acid (Nephro-Alonzo) 1 tab PO 0800 [facility] Last Admin: 03/26/17 09:27 Dose: Not Given - Labs Labs: 03/26/17 05:43 03/26/17 05:43 PT 12.3 SECONDS (9.7-12.2) H 02/18/17 05:30 INR 1.1 02/18/17 05:30 APTT 30 SECONDS (21-34) 02/18/17 05:30 - Constitutional Appears: Non-toxic - Head Exam Head Exam: NORMOCEPHALIC - Eye Exam Eye Exam: PERRL - ENT Exam ENT Exam: Mucous Membranes Dry - Neck Exam Neck Exam: absent: Lymphadenopathy - Respiratory Exam Respiratory Exam: Decreased Breath Sounds - Cardiovascular Exam Cardiovascular Exam: REGULAR RHYTHM - GI/Abdominal Exam GI & Abdominal Exam: Distended - Rectal Exam Rectal Exam: Deferred - Exam Exam: NORMAL INSPECTION Assessment and Plan (1) Change in mental status Status: Acute (2) End stage renal disease on dialysis Status: Acute (3) Heel ulcer Status: Acute (4) IDDM (insulin dependent diabetes mellitus) Status: Chronic
--- NOTE | 2017-03-26 19:35 | CP.PCM.PN ---
Subjective - Date & Time of Evaluation Date of Evaluation: 03/26/17 Time of Evaluation: 14:00 - Subjective Subjective: SEEN ON RENAL F/U IN ICU NOT DOING WELL ALL EMR REVIEWED ON HD T T S Objective - Vital Signs/Intake and Output Vital Signs (last 24 hours): Temp Pulse Resp BP Pulse Ox 98.1 F 85 33 H 180/33 H 100 03/26/17 18:00 03/26/17 19:22 03/26/17 19:22 03/26/17 19:22 03/26/17 19:22 Intake and Output: 03/26/17 03/27/17 18:59 06:59 Intake Total 550 0 Balance 550 0 - Medications Medications: Current Medications Brimonidine Tartrate (Alphagan 0.2% Opht) 1 ml OU TID [facility] Last Admin: 03/26/17 17:08 Dose: 1 drop Collagenase (Santyl) 0 gm TOP DAILY [facility] Last Admin: 03/26/17 13:35 Dose: Not Given Dextrose (Dextrose 50% Inj) 0 ml IV STAT PRN; Protocol PRN Reason: Hyglycemia Protocol Dextrose (Glutose 15) 0 gm PO ONCE PRN; Protocol PRN Reason: Hypoglycemia Protocol Epoetin Maxwell (Procrit) 10,000 unit IV TTS [facility] Last Admin: 03/26/17 10:11 Dose: 10,000 unit Ergocalciferol (Drisdol 50,000 Intl Units Cap) 1 cap PO Q7D [facility] Last Admin: 03/24/17 00:47 Dose: 1 cap Ferric Sodium Gluconate Complex (Ferrlecit) 125 mg IVPB TTS [facility] Stop: 03/28/17 10:01 Last Admin: 03/26/17 10:10 Dose: 125 mg Glucagon (Glucagen Diagnostic Kit) 0 mg IM STAT PRN; Protocol PRN Reason: Hypoglycemia Protocol Fluconazole (Diflucan Iv 200 Mg/100 Ml Ns) 100 mls @ 100 mls/hr IVPB DAILY [facility] Last Admin: 03/26/17 09:52 Dose: 100 mls/hr Metronidazole (Flagyl) 500 mg in 100 mls @ 100 mls/hr IVPB Q8 [facility] Last Admin: 03/26/17 14:00 Dose: 100 mls/hr Insulin Glargine (Lantus) 25 unit SC HS [facility] Last Admin: 03/16/17 22:27 Dose: Not Given Insulin Human Regular (Novolin R) 0 unit SC ACHS [facility] PRN Reason: Protocol Last Admin: 03/26/17 16:20 Dose: 4 unit Latanoprost (Xalatan Opht) 0.02 ml OU HS [facility] Last Admin: 03/25/17 22:20 Dose: 0.02 ml Lisinopril (Zestril) 20 mg PO DAILY [facility] Last Admin: 03/26/17 12:08 Dose: 20 mg Pantoprazole Sodium (Protonix Inj) 40 mg IVP DAILY [facility] Last Admin: 03/26/17 12:17 Dose: 40 mg Rosuvastatin Calcium (Crestor) 10 mg PO HS [facility] Last Admin: 03/25/17 22:15 Dose: Not Given Timolol Maleate (Timoptic 0.5% Oph Soln) 1 drop OU BID [facility] Last Admin: 03/26/17 17:08 Dose: 1 drop Vitamin B Complex/Vit C/Folic Acid (Nephro-Alonzo) 1 tab PO 0800 [facility] Last Admin: 03/26/17 09:27 Dose: Not Given - Labs Labs: 03/26/17 05:43 03/26/17 05:43 PT 12.3 SECONDS (9.7-12.2) H 02/18/17 05:30 INR 1.1 02/18/17 05:30 APTT 30 SECONDS (21-34) 02/18/17 05:30 Assessment and Plan - Assessment and Plan (Free Text) Assessment: ESRD ON HD T T S .. TO BE C/O ANEMIA OF CKD .. ON EPO + FERRLICIT MULTIPLE CO MORBIDITIES P : C/O CURRENT CARE C/O PRESENT MANAGEMENT C/O SUPPORTIVE CARE
[2017-03-26] MEDS: Latanoprost 2.5 ml Opht Soln OU SCH ×2 (21:16→21:17)
[2017-03-26] MEDS ORDERED: Acetaminophen 650mg/20.3ml solution UD PO STA (21:37)
[2017-03-27] MEDS: metroNIDAZOLE IV 500 mg/100 ml 500 MG/100 ML BAG IVPB SCH (05:44)
[2017-03-27 05:59] LABS: ABG ALLEN TEST POS; DRAW SITE RR
[2017-03-27 06:12] LABS: BASO % 0.2 % (0.0-2.0); EOS # 0.1 K/uL (0.0-0.7); EOS % 0.4 % (0.0-4.0); HEMATOCRIT 26.2 % (34.0-47.0); LYMPH # 1.6 K/uL (1.0-4.3); LYMPH % 9.3 % (20.0-40.0); MEAN CELL VOLUME 98.1 fL (81.0-99.0); MEAN CORPUSCULAR HEMOGLOBIN 30.2 pg (27.0-31.0); MEAN CORPUSCULAR HGB CONC 30.8 g/dL (33.0-37.0); MEAN PLATELET VOLUME 8.3 fL (7.2-11.7); MONO # 1.6 K/uL (0.0-0.8); MONO % 9.1 % (0.0-10.0); NRBC % 0.1 % (0.0-2.0); PLATELET COUNT 316 K/uL (130-400); RED CELL DISTRIBUTION WIDTH 23.3 % (11.5-14.5); WHITE BLOOD COUNT 17.2 K/uL (4.8-10.8)
[2017-03-27 06:22] LABS: POTASSIUM 3.7 mmol/L (3.6-5.2)
[2017-03-27 06:24] LABS: ALB/GLOB RATIO 0.7 (1.0-2.1); BILIRUBIN,TOTAL 0.4 mg/dL (0.2-1.3); TOTAL PROTEIN 5.3 g/dL (6.3-8.3)
[2017-03-27 06:25] LABS: CALCIUM 7.5 mg/dl (8.6-10.4); PHOSPHOROUS 2.8 mg/dL (2.5-4.5)
[2017-03-27] MEDS: Multivitamin Vitamin B Complex (Nephro-Vite) Tab PO SCH (07:57)
[2017-03-27] MEDS: (Novolin R) Insulin Human Regular 100 units/ml vial SC SCH ×4 (08:03→21:53)
[2017-03-27 08:18] LABS: NEUTROPHIL 82 % (50-75); TOTAL CELLS COUNTED 100
--- NOTE | 2017-03-27 08:46 | RAD ---
Chest x-ray single frontal view History: BiPAP. Comparison: 03/26/2017 Findings: Right PICC line with tip extending into the proximal right SVC. Moderate to large left pleural effusion. Moderate to severe venous congestion. Relative increased opacification throughout the left lung. Linear atelectasis in the right midlung zone. Small loculated right pleural effusion. Cardiomegaly. Calcification at the aortic knob. Surgical clips in the left axilla. Degenerative changes in the spine and shoulders. Impression: Right PICC line with tip extending into the proximal right SVC. Moderate to large left pleural effusion. Moderate to severe venous congestion. Relative increased opacification throughout the left lung. Linear atelectasis in the right midlung zone. Small loculated right pleural effusion. Cardiomegaly. Calcification at the aortic knob. Surgical clips in the left axilla.
--- NOTE | 2017-03-27 09:33 | PCM.SURG1 ---
Surgeon's Initial Post Op Note - Surgeon's Notes Surgeon: Rogers Roman MD Rack Puncher: NONE Type of Anesthesia: Local Pre-Operative Diagnosis: Bilateral pleural effusion Operative Findings: US showed a moderate left and right pleural effusion Post-Operative Diagnosis: Bilateral pleural effusion Operation Performed: US guided left thoracentesis Specimen/Specimens Removed: 900 cc of clear fluid Estimated Blood Loss: EBL {In ML}: 0 Blood Products Given: N/A Drains Used: No Drains Post-Op Condition: Fair Date of Surgery/Procedure: 03/27/17 Time of Surgery/Procedure: 09:30
--- NOTE | 2017-03-27 09:44 | CP.PCM.PN ---
Subjective - Date & Time of Evaluation Date of Evaluation: 03/27/17 Time of Evaluation: 09:00 - Subjective Subjective: Pulmonology Note for Dr. John's Service Patient seen and examined at bedside this morning. Patient on BiPAP, ROS unattainable. S/P THORACENTESIS 900cc REMOVED Objective - Vital Signs/Intake and Output Vital Signs (last 24 hours): Temp Pulse Resp BP Pulse Ox 98.7 F 89 28 H 180/57 H 100 03/27/17 08:00 03/27/17 09:02 03/27/17 09:02 03/27/17 09:03 03/27/17 09:02 Intake and Output: 03/27/17 03/27/17 06:59 18:59 Intake Total 680 220 Output Total 0 Balance 680 220 - Medications Medications: Current Medications Brimonidine Tartrate (Alphagan 0.2% Opht) 1 ml OU TID [facility] Last Admin: 03/26/17 17:08 Dose: 1 drop Collagenase (Santyl) 0 gm TOP DAILY [facility] Last Admin: 03/26/17 13:35 Dose: Not Given Dextrose (Dextrose 50% Inj) 0 ml IV STAT PRN; Protocol PRN Reason: Hyglycemia Protocol Dextrose (Glutose 15) 0 gm PO ONCE PRN; Protocol PRN Reason: Hypoglycemia Protocol Epoetin Maxwell (Procrit) 10,000 unit IV TTS [facility] Last Admin: 03/26/17 10:11 Dose: 10,000 unit Ergocalciferol (Drisdol 50,000 Intl Units Cap) 1 cap PO Q7D [facility] Last Admin: 03/24/17 00:47 Dose: 1 cap Ferric Sodium Gluconate Complex (Ferrlecit) 125 mg IVPB TTS [facility] Stop: 03/28/17 10:01 Last Admin: 03/26/17 10:10 Dose: 125 mg Glucagon (Glucagen Diagnostic Kit) 0 mg IM STAT PRN; Protocol PRN Reason: Hypoglycemia Protocol Fluconazole (Diflucan Iv 200 Mg/100 Ml Ns) 100 mls @ 100 mls/hr IVPB DAILY [facility] Last Admin: 03/26/17 09:52 Dose: 100 mls/hr Metronidazole (Flagyl) 500 mg in 100 mls @ 100 mls/hr IVPB Q8 [facility] Last Admin: 03/27/17 05:44 Dose: 100 mls/hr Insulin Glargine (Lantus) 25 unit SC HS [facility] Last Admin: 03/16/17 22:27 Dose: Not Given Insulin Human Regular (Novolin R) 0 unit SC ACHS [facility] PRN Reason: Protocol Last Admin: 03/27/17 08:03 Dose: 6 unit Latanoprost (Xalatan Opht) 0.02 ml OU HS [facility] Last Admin: 03/26/17 21:17 Dose: 0.02 ml Lisinopril (Zestril) 20 mg PO DAILY [facility] Last Admin: 03/27/17 08:31 Dose: 20 mg Ondansetron HCl (Zofran Inj) 4 mg IVP Q8H PRN PRN Reason: Nausea/Vomiting Last Admin: 03/27/17 08:31 Dose: 4 mg Pantoprazole Sodium (Protonix Inj) 40 mg IVP DAILY [facility] Last Admin: 03/26/17 12:17 Dose: 40 mg Rosuvastatin Calcium (Crestor) 10 mg PO HS [facility] Last Admin: 03/26/17 21:16 Dose: 10 mg Timolol Maleate (Timoptic 0.5% Oph Soln) 1 drop OU BID [facility] Last Admin: 03/26/17 17:08 Dose: 1 drop Vitamin B Complex/Vit C/Folic Acid (Nephro-Alonzo) 1 tab PO 0800 [facility] Last Admin: 03/27/17 07:57 Dose: 1 tab - Labs Labs: 03/27/17 06:04 03/27/17 06:04 PT 12.3 SECONDS (9.7-12.2) H 02/18/17 05:30 INR 1.1 02/18/17 05:30 APTT 30 SECONDS (21-34) 02/18/17 05:30 - Additional Findings Additional findings: - Constitutional Appears: Toxic - Head Exam Head Exam: ATRAUMATIC, NORMAL INSPECTION - Eye Exam Eye Exam: EOMI, Normal appearance - ENT Exam ENT Exam: Mucous Membranes Dry - Respiratory Exam Respiratory Exam: Decreased Breath Sounds, Rales - Cardiovascular Exam Cardiovascular Exam: REGULAR RHYTHM, +S1, +S2 - GI/Abdominal Exam GI & Abdominal Exam: Normal Bowel Sounds, Soft - Extremities Exam Extremities exam: Positive for: tenderness. Negative for: normal inspection, pedal edema Additional comments: Majority of left plantar aspect of foot is necrotic. dressing clean dry and intact upper extremity edema - Neurological Exam Neurological exam: Altered - Skin Skin Exam: Warm Additional comments: left non healing foot ulcer Assessment and Plan - Assessment and Plan (Free Text) Assessment: Patient is a 71 y/o F with PMHx of HD, CHF, HTN, DM2, PVD with non healing right foot ulcer who went into respiratory distress and was transferred to ICU for closer monitoring. Plan: Respiratory Distress Secondary to L > R Pleural Effusion CXR 03/26: Moderate to severe venous congestion, large left and moderate right pleural effusion O2 Sat of 93% on NC BiPAP placed 02-27-12 100% O2, patient saturating at 100% Thoracentesis - 900cc REMOVED from left side Continue IV Abx as per ID Non-Healing Left Heel Ulcer * ID (Amish) * Podiatry (Bennie) * recommended Left BKA * Vascular (Bobo) * recommended Left BKA * Low ext arterial duplex (02/04/17) * occlusion R post tib artery, 50-75% stenosis right mid popliteal & proximal anterior tib arteries * occlusion of left post tib artery, >75% stenosis left proximal ant tibial artery, 50-75% stenosis left distal SFA & proximal popliteal a. * Abdominal Angiography 02/19/17 * Severe bilateral lower extremity arterial runoff with 1 vessel likely remaining patent at the right. None is continuously patent at the left lower extremity [id number]. Widely patent abdominal aorta and iliac arterial system with moderate right and [id number] left femoral arterial disease. Severe bilateral popliteal artery arterial disease. * PICC replaced on 03/23/17, Cath flow administered on 03/24/17 - PICC LINE FUNCTIONING - REMOVED RIGHT TLC End Stage Renal Disease on Hemodialysis * Nephro (Hatomerl) * TTS Failure to Thrive C. Diff Altered Mental Status Hypertension Anemia of Chronic Disease Diabetes As per Primary Team: Disposition: This patient has a very poor prognosis. The family wishes to try to save the leg despite multiple professional opinions on the necessity of an amputation. The family initially wished for the patient to go to [facility] where hyperbaric therapy is available in order to promote healing. They wished to be cared for by their personal delinquency prevention social worker Dr. Ware; however, Dr. Ware has become unavailable. So the family decided to remain at [facility] and attempt healing via vascular surgery to improve circulation and wound debridement of damaged tissue. They were repeatedly warned by multiple medical records director of the risks associated with refusing a BKA and attempting to salvage the foot. The family verbalized understanding of the risks but still decide against a BKA at this time. Teri Mishra Dr., DO, PGY-1
--- NOTE | 2017-03-27 09:58 | RAD ---
HISTORY: Status post left thoracentesis. COMPARISON: 03/27/2017 at 7:47 a.m. FINDINGS: LUNGS: No infiltrate. PLEURA: Small right pleural effusion, unchanged. Decreased left pleural effusion status post thoracentesis. No pneumothorax identified. CARDIOVASCULAR: Mild cardiomegaly. Evaluation limited due to oblique positioning. Right PICC catheter unchanged. OSSEOUS STRUCTURES: No significant abnormalities. VISUALIZED UPPER ABDOMEN: Normal. OTHER FINDINGS: None. IMPRESSION: Decreased left pleural effusion. No pneumothorax. Stable small right pleural effusion.
[2017-03-27 10:10] LABS: BODY FLUID TYPE PLEURAL/THORACENTESI
[2017-03-27] MEDS: Fluconazole IV 200mg/100 ml NS 100 ML IVPB SCH (10:16)
[2017-03-27] MEDS: Brimonidine 0.2% Opth Sol (5ml) OU SCH ×3 (10:16→18:58)
[2017-03-27 11:05] LABS: BF GROSS APPEARANCE CLEAR (CLEAR); BODY FLUID TOTAL COUNT 100 (0-0)
[2017-03-27] MEDS: Collagenase 250 Units/gm Ointment(30 gm) TOP SCH (14:06)
--- NOTE | 2017-03-27 14:17 | CP.CCUPN ---
<Sonia Barnard - Last Filed: 03/27/17 14:09> CCU Subjective - Physician Review Subjective (Free Text): Patient seen and examined at bedside this morning, Patient remains lethargic but was more responsive today. She was on NC. Complete ROS unobtainable at this time. CCU Objective - Vital Signs / Intake & Output Vital Signs (Last 4 hours): Vital Signs Pulse Resp BP Pulse Ox 03/27/17 13:20 81 35 H 130/50 L 100 03/27/17 12:20 82 30 H 130/50 L 100 03/27/17 11:35 130/50 L 03/27/17 11:30 81 27 H 100 03/27/17 11:00 83 32 H 100 03/27/17 10:22 87 30 H 188/89 H 100 Intake and Output (Last 8hrs): Intake & Output 03/26/17 03/27/17 03/27/17 22:59 06:59 14:59 Intake Total 660 220 440 Output Total 0 Balance 660 220 440 Weight 147 lb 7.828 oz Intake: Intake, IV Amount 100 100 100 Right PICC 100 100 100 Oral 560 120 340 Output: Stool 0 Other: # Bowel Movements 1 1 1 - Physical Exam Head: Positive for: Atraumatic, Normocephalic Extroacular Muscles: Positive for: EOMI Conjunctiva: Positive for: Normal Mouth: Positive for: Dry Respiratory/Chest: Positive for: Decreased Breath Sounds, Rales Cardiovascular: Positive for: Normal S1, S2 Abdomen: Negative for: Tenderness, Distention Upper Extremity: Positive for: Edema Lower Extremity: Positive for: Edema, Other (Majority of left plantar aspect of foot is necrotic. dressing clean dry and intact) Skin: Positive for: Warm Psychiatric: Positive for: Alert. Negative for: Oriented x 3 - Medications Active Medications: Active Medications Generic Name Dose Route Start Last Admin Trade Name Freq PRN Reason Stop Dose Admin Acetaminophen 650 mg 03/27/17 10:47 03/27/17 11:02 Tylenol 325mg Tab PO 650 mg Q6 PRN Administration Pain, moderate (4-7) Brimonidine Tartrate 1 ml 02/20/17 19:00 03/27/17 10:16 Alphagan 0.2% Opht OU 1 drop TID ELINA Administration Collagenase 0 gm 03/18/17 10:00 03/27/17 14:06 Santyl TOP 1 applic DAILY ELINA Administration Dextrose 0 ml 02/27/17 12:44 Dextrose 50% Inj IV STAT PRN Hyglycemia Protocol Protocol Dextrose 0 gm 02/27/17 12:44 Glutose 15 PO ONCE PRN Hypoglycemia Protocol Protocol Epoetin Maxwell 10,000 unit 03/07/17 11:30 03/26/17 10:11 Procrit IV 10,000 unit TTS ELINA Administration Ergocalciferol 1 cap 03/24/17 00:15 03/24/17 00:47 Drisdol 50,000 Intl Units Cap PO 1 cap Q7D ELINA Administration Ferric Sodium Gluconate Complex 125 mg 03/19/17 13:00 03/26/17 10:10 Ferrlecit IVPB 03/28/17 10:01 125 mg TTS ELINA Administration Glucagon 0 mg 02/27/17 12:44 Glucagen Diagnostic Kit IM STAT PRN Hypoglycemia Protocol Protocol Heparin Sodium (Porcine) 5,000 units 03/27/17 12:30 03/27/17 13:11 Heparin SC 5,000 units Q12 ELINA Administration Vancomycin/Sodium Chloride 1 gm in 200 mls @ 133.333 mls/hr 03/28/17 10:00 Vancomycin 1 Gm/Ns 200 Ml IVPB TTS ELINA Insulin Glargine 25 unit 03/06/17 17:19 03/16/17 22:27 Lantus SC Not Given HS ELINA Insulin Human Regular 0 unit 03/18/17 16:30 03/27/17 11:27 Novolin R SC 6 unit ACHS ELINA Administration Protocol Latanoprost 0.02 ml 02/20/17 22:00 03/26/17 21:17 Xalatan Opht OU 0.02 ml HS ELINA Administration Lisinopril 20 mg 03/19/17 10:00 03/27/17 10:17 Zestril PO Not Given DAILY ELINA Ondansetron HCl 4 mg 03/27/17 08:20 03/27/17 08:31 Zofran Inj IVP 4 mg Q8H PRN Administration Nausea/Vomiting Pantoprazole Sodium 40 mg 03/26/17 12:00 03/27/17 10:15 Protonix Inj IVP 40 mg DAILY ELINA Administration Rosuvastatin Calcium 10 mg 02/18/17 22:00 03/26/17 21:16 Crestor PO 10 mg HS ELINA Administration Timolol Maleate 1 drop 02/20/17 19:00 03/27/17 10:16 Timoptic 0.5% Ophth Soln OU 1 drop BID ELINA Administration Vitamin B Complex/Vit C/Folic Acid 1 tab 03/16/17 08:00 03/27/17 07:57 Nephro-Kevin PO 1 tab 0800 ELINA Administration - Patient Studies Lab Studies: Microbiology Studies 03/27/17 10:30 Fungal Culture - Preliminary Pleural Fluid 03/25/17 18:00 Blood Culture - Preliminary Blood NO GROWTH AFTER 24 HOURS 03/25/17 18:00 Blood Culture - Preliminary Blood NO GROWTH AFTER 24 HOURS 03/25/17 16:00 MRSA Culture (Admit) - Final Naris MRSA NOT DETECTED Lab Studies 03/27/17 03/27/17 03/27/17 Range/Units 11:23 10:09 09:00 WBC (4.8-10.8) K/uL RBC (3.80-5.20) Mil/uL Hgb (11.0-16.0) g/dL Hct (34.0-47.0) % MCV (81.0-99.0) fL MCH (27.0-31.0) pg MCHC (33.0-37.0) g/dL RDW (11.5-14.5) % Plt Count (130-400) K/uL MPV (7.2-11.7) fL Neut % (Auto) (50.0-75.0) % Lymph % (Auto) (20.0-40.0) % [place] % (Auto) (0.0-10.0) % Eos % (Auto) (0.0-4.0) % Baso % (Auto) (0.0-2.0) % Neut # (1.8-7.0) K/uL Lymph # (1.0-4.3) K/uL [place] # (0.0-0.8) K/uL Eos # (0.0-0.7) K/uL Baso # (0.0-0.2) K/uL Neutrophils % (Manual) (50-75) % Lymphocytes % (Manual) (20-40) % Monocytes % (Manual) (0-10) % Platelet Estimate (NORMAL) Polychromasia Hypochromasia (manual) Poikilocytosis (manual Anisocytosis (manual) Microcytosis (manual) Macrocytosis (manual) Puncture Site pCO2 (35-45) mm/Hg pO2 (80-100) mm/Hg HCO3 (21-28) mmol/L ABG pH (7.35-7.45) ABG Total CO2 (22-28) mmol/L ABG O2 Saturation (95-98) % ABG Base Excess (-2.0-3.0) mmol/L Joey Test ABG Potassium (3.6-5.2) mmol/L Sodium (132-148) mmol/l Chloride (98-107) mmol/L Glucose (65-105) mg/dl Lactate (0.7-2.1) mmol/L Liter Flow Potassium (3.6-5.2) mmol/L Carbon Dioxide (22-30) mmol/L Anion Gap (10-20) BUN (7-17) mg/dL Creatinine (0.7-1.2) mg/dL Est GFR ( Amer) Est GFR (Non-Af Amer) POC Glucose (mg/dL) 270 H (65-110) mg/dL Random Glucose (65-105) mg/dL Calcium (8.6-10.4) mg/dl Phosphorus (2.5-4.5) mg/dL Magnesium (1.6-2.3) mg/dL Total Bilirubin (0.2-1.3) mg/dL AST (14-36) U/L ALT (9-52) U/L Alkaline Phosphatase (38-126) U/L Total Protein (6.3-8.3) g/dL Albumin (3.5-5.0) g/dL Globulin (2.2-3.9) gm/dL Albumin/Globulin Ratio (1.0-2.1) Arterial Blood Potassium (3.6-5.2) mmol/L Fluid Source Pleural/thoracentesi Fluid Appearance Clear (CLEAR) Fluid WBC 39.0 (0.0-300.0) /mm3 Fluid RBC 28.0 H (0.0-0.0) /mm3 Fluid Tot Cell Count 100 H (0-0) Fluid Neutrophils 10.0 H (0-0) % Fluid Lymphocytes 87.0 H (0-0) % Fld Monocyte/Macrophag 3 H (0-0) % Fluid Comment C. difficile Ag & Toxin Negative (NEGATIVE) 03/27/17 03/27/17 03/27/17 Range/Units 07:19 06:04 06:04 WBC 17.2 H (4.8-10.8) K/uL RBC 2.67 L (3.80-5.20) Mil/uL Hgb 8.0 L (11.0-16.0) g/dL Hct 26.2 L (34.0-47.0) % MCV 98.1 D (81.0-99.0) fL MCH 30.2 (27.0-31.0) pg MCHC 30.8 L (33.0-37.0) g/dL RDW 23.3 H (11.5-14.5) % Plt Count 316 (130-400) K/uL MPV 8.3 (7.2-11.7) fL Neut % (Auto) 81.0 H (50.0-75.0) % Lymph % (Auto) 9.3 L (20.0-40.0) % [place] % (Auto) 9.1 (0.0-10.0) % Eos % (Auto) 0.4 (0.0-4.0) % Baso % (Auto) 0.2 (0.0-2.0) % Neut # 13.9 H (1.8-7.0) K/uL Lymph # 1.6 (1.0-4.3) K/uL [place] # 1.6 H (0.0-0.8) K/uL Eos # 0.1 (0.0-0.7) K/uL Baso # 0.0 (0.0-0.2) K/uL Neutrophils % (Manual) 82 H (50-75) % Lymphocytes % (Manual) 9 L (20-40) % Monocytes % (Manual) 9 (0-10) % Platelet Estimate Normal (NORMAL) Polychromasia Slight Hypochromasia (manual) Moderate Poikilocytosis (manual Slight Anisocytosis (manual) Slight Microcytosis (manual) Slight Macrocytosis (manual) Slight Puncture Site pCO2 (35-45) mm/Hg pO2 (80-100) mm/Hg HCO3 (21-28) mmol/L ABG pH (7.35-7.45) ABG Total CO2 (22-28) mmol/L ABG O2 Saturation (95-98) % ABG Base Excess (-2.0-3.0) mmol/L Joey Test ABG Potassium (3.6-5.2) mmol/L Sodium 129 L (132-148) mmol/l Chloride 95 L (98-107) mmol/L Glucose (65-105) mg/dl Lactate (0.7-2.1) mmol/L Liter Flow Potassium 3.7 (3.6-5.2) mmol/L Carbon Dioxide 27 (22-30) mmol/L Anion Gap 11 (10-20) BUN 25 H (7-17) mg/dL Creatinine 1.2 (0.7-1.2) mg/dL Est GFR ( Amer) 54 Est GFR (Non-Af Amer) 44 POC Glucose (mg/dL) 257 H (65-110) mg/dL Random Glucose 200 H (65-105) mg/dL Calcium 7.5 L (8.6-10.4) mg/dl Phosphorus 2.8 (2.5-4.5) mg/dL Magnesium 2.0 (1.6-2.3) mg/dL Total Bilirubin 0.4 (0.2-1.3) mg/dL AST 30 (14-36) U/L ALT 37 (9-52) U/L Alkaline Phosphatase 189 H (38-126) U/L Total Protein 5.3 L (6.3-8.3) g/dL Albumin 2.3 L (3.5-5.0) g/dL Globulin 3.1 (2.2-3.9) gm/dL Albumin/Globulin Ratio 0.7 L (1.0-2.1) Arterial Blood Potassium (3.6-5.2) mmol/L Fluid Source Fluid Appearance (CLEAR) Fluid WBC (0.0-300.0) /mm3 Fluid RBC (0.0-0.0) /mm3 Fluid Tot Cell Count (0-0) Fluid Neutrophils (0-0) % Fluid Lymphocytes (0-0) % Fld Monocyte/Macrophag (0-0) % Fluid Comment C. difficile Ag & Toxin (NEGATIVE) 03/27/17 03/26/17 03/26/17 Range/Units 05:10 21:08 16:19 WBC (4.8-10.8) K/uL RBC (3.80-5.20) Mil/uL Hgb (11.0-16.0) g/dL Hct (34.0-47.0) % MCV (81.0-99.0) fL MCH (27.0-31.0) pg MCHC (33.0-37.0) g/dL RDW (11.5-14.5) % Plt Count (130-400) K/uL MPV (7.2-11.7) fL Neut % (Auto) (50.0-75.0) % Lymph % (Auto) (20.0-40.0) % [place] % (Auto) (0.0-10.0) % Eos % (Auto) (0.0-4.0) % Baso % (Auto) (0.0-2.0) % Neut # (1.8-7.0) K/uL Lymph # (1.0-4.3) K/uL [place] # (0.0-0.8) K/uL Eos # (0.0-0.7) K/uL Baso # (0.0-0.2) K/uL Neutrophils % (Manual) (50-75) % Lymphocytes % (Manual) (20-40) % Monocytes % (Manual) (0-10) % Platelet Estimate (NORMAL) Polychromasia Hypochromasia (manual) Poikilocytosis (manual Anisocytosis (manual) Microcytosis (manual) Macrocytosis (manual) Puncture Site Rr pCO2 43 (35-45) mm/Hg pO2 98 (80-100) mm/Hg HCO3 29.0 H (21-28) mmol/L ABG pH 7.45 (7.35-7.45) ABG Total CO2 31.2 H (22-28) mmol/L ABG O2 Saturation 98.4 H (95-98) % ABG Base Excess 5.2 H (-2.0-3.0) mmol/L Joey Test Pos ABG Potassium 3.8 (3.6-5.2) mmol/L Sodium 134.0 (132-148) mmol/l Chloride 97.0 L (98-107) mmol/L Glucose 232 H (65-105) mg/dl Lactate 1.1 (0.7-2.1) mmol/L Liter Flow 4.0 Potassium (3.6-5.2) mmol/L Carbon Dioxide (22-30) mmol/L Anion Gap (10-20) BUN (7-17) mg/dL Creatinine (0.7-1.2) mg/dL Est GFR ( Amer) Est GFR (Non-Af Amer) POC Glucose (mg/dL) 314 H 249 H (65-110) mg/dL Random Glucose (65-105) mg/dL Calcium (8.6-10.4) mg/dl Phosphorus (2.5-4.5) mg/dL Magnesium (1.6-2.3) mg/dL Total Bilirubin (0.2-1.3) mg/dL AST (14-36) U/L ALT (9-52) U/L Alkaline Phosphatase (38-126) U/L Total Protein (6.3-8.3) g/dL Albumin (3.5-5.0) g/dL Globulin (2.2-3.9) gm/dL Albumin/Globulin Ratio (1.0-2.1) Arterial Blood Potassium 3.8 (3.6-5.2) mmol/L Fluid Source Fluid Appearance (CLEAR) Fluid WBC (0.0-300.0) /mm3 Fluid RBC (0.0-0.0) /mm3 Fluid Tot Cell Count (0-0) Fluid Neutrophils (0-0) % Fluid Lymphocytes (0-0) % Fld Monocyte/Macrophag (0-0) % Fluid Comment C. difficile Ag & Toxin (NEGATIVE) Laboratory Results - last 24 hr 03/26/17 03/26/17 03/27/17 16:19 21:08 05:10 WBC RBC Hgb Hct MCV MCH MCHC RDW Plt Count MPV Neut % (Auto) Lymph % (Auto) [place] % (Auto) Eos % (Auto) Baso % (Auto) Neut # Lymph # [place] # Eos # Baso # Neutrophils % (Manual) Lymphocytes % (Manual) Monocytes % (Manual) Platelet Estimate Polychromasia Hypochromasia (manual) Poikilocytosis (manual Anisocytosis (manual) Microcytosis (manual) Macrocytosis (manual) Puncture Site Rr pCO2 43 pO2 98 HCO3 29.0 H ABG pH 7.45 ABG Total CO2 31.2 H ABG O2 Saturation 98.4 H ABG Base Excess 5.2 H Joey Test Pos ABG Potassium 3.8 Sodium 134.0 Chloride 97.0 L Glucose 232 H Lactate 1.1 Liter Flow 4.0 Potassium Carbon Dioxide Anion Gap BUN Creatinine Est GFR ( Amer) Est GFR (Non-Af Amer) POC Glucose (mg/dL) 249 H 314 H Random Glucose Calcium Phosphorus Magnesium Total Bilirubin AST ALT Alkaline Phosphatase Total Protein Albumin Globulin Albumin/Globulin Ratio Arterial Blood Potassium 3.8 Fluid Source Fluid Appearance Fluid WBC Fluid RBC Fluid Tot Cell Count Fluid Neutrophils Fluid Lymphocytes Fld Monocyte/Macrophag Fluid Comment C. difficile Ag & Toxin 03/27/17 03/27/17 03/27/17 06:04 06:04 07:19 WBC 17.2 H RBC 2.67 L Hgb 8.0 L Hct 26.2 L MCV 98.1 D MCH 30.2 MCHC 30.8 L RDW 23.3 H Plt Count 316 MPV 8.3 Neut % (Auto) 81.0 H Lymph % (Auto) 9.3 L [place] % (Auto) 9.1 Eos % (Auto) 0.4 Baso % (Auto) 0.2 Neut # 13.9 H Lymph # 1.6 [place] # 1.6 H Eos # 0.1 Baso # 0.0 Neutrophils % (Manual) 82 H Lymphocytes % (Manual) 9 L Monocytes % (Manual) 9 Platelet Estimate Normal Polychromasia Slight Hypochromasia (manual) Moderate Poikilocytosis (manual Slight Anisocytosis (manual) Slight Microcytosis (manual) Slight Macrocytosis (manual) Slight Puncture Site pCO2 pO2 HCO3 ABG pH ABG Total CO2 ABG O2 Saturation ABG Base Excess Joey Test ABG Potassium Sodium 129 L Chloride 95 L Glucose Lactate Liter Flow Potassium 3.7 Carbon Dioxide 27 Anion Gap 11 BUN 25 H Creatinine 1.2 Est GFR ( Amer) 54 Est GFR (Non-Af Amer) 44 POC Glucose (mg/dL) 257 H Random Glucose 200 H Calcium 7.5 L Phosphorus 2.8 Magnesium 2.0 Total Bilirubin 0.4 AST 30 ALT 37 Alkaline Phosphatase 189 H Total Protein 5.3 L Albumin 2.3 L Globulin 3.1 Albumin/Globulin Ratio 0.7 L Arterial Blood Potassium Fluid Source Fluid Appearance Fluid WBC Fluid RBC Fluid Tot Cell Count Fluid Neutrophils Fluid Lymphocytes Fld Monocyte/Macrophag Fluid Comment C. difficile Ag & Toxin 03/27/17 03/27/17 03/27/17 09:00 10:09 11:23 WBC RBC Hgb Hct MCV MCH MCHC RDW Plt Count MPV Neut % (Auto) Lymph % (Auto) [place] % (Auto) Eos % (Auto) Baso % (Auto) Neut # Lymph # [place] # Eos # Baso # Neutrophils % (Manual) Lymphocytes % (Manual) Monocytes % (Manual) Platelet Estimate Polychromasia Hypochromasia (manual) Poikilocytosis (manual Anisocytosis (manual) Microcytosis (manual) Macrocytosis (manual) Puncture Site pCO2 pO2 HCO3 ABG pH ABG Total CO2 ABG O2 Saturation ABG Base Excess Joey Test ABG Potassium Sodium Chloride Glucose Lactate Liter Flow Potassium Carbon Dioxide Anion Gap BUN Creatinine Est GFR ( Amer) Est GFR (Non-Af Amer) POC Glucose (mg/dL) 270 H Random Glucose Calcium Phosphorus Magnesium Total Bilirubin AST ALT Alkaline Phosphatase Total Protein Albumin Globulin Albumin/Globulin Ratio Arterial Blood Potassium Fluid Source Pleural/thoracentesi Fluid Appearance Clear Fluid WBC 39.0 Fluid RBC 28.0 H Fluid Tot Cell Count 100 H Fluid Neutrophils 10.0 H Fluid Lymphocytes 87.0 H Fld Monocyte/Macrophag 3 H Fluid Comment C. difficile Ag & Toxin Negative Fingerstick Blood Sugar Results: 270 Review of Systems - Review of Systems Systems not reviewed;Unavailable: Acuity of Condition Critical Care Progress Note - Nutrition Nutrition: Nutrition Category Date Time Status Soft [Dysphagia/Modified Consistency Diet] [DIET] Diets 03/18/17 Lunch Active Assessment/Plan - Assessment and Plan (Free Text) Assessment: Patient is a 71 y/o F with PMHx of HD, CHF, HTN, DM2, PVD with non healing right foot ulcer who went into respiratory distress and was transferred to ICU on 03/25 for closer monitoring. Plan: Neuro: Altered mental status, likely secondary to poor glycemic control - Neurology on board (Dr. Aguirre) - CT head negative for acute infarction - Discontinued all pain medications, tyelnol prn Cardio: Tachycardic, CHF, HTN. PVD - Echo showed 61% LVEF 03/09/17 - Vascular surgery on board (Dr. Broussard) for PVD - Lisonopril 20mg PO QD - Crestor 10 mg PO HS - R femoral line placed in ICU has been removed Pulm: respiratory distress - S/p thoracentesis on 03/27: 900 cc of clear fluid removed from left lung - O2 Sat of 100% on NC 5 L - BiPAP off Nephro: ESRD on hemodialysis - Pt undergoes hemodialysis //Thu, will dialyze daily to resolve altered mentation - Multiple electrolyte abnormalities throughout this admission, monitor CMPs+ magnesium and phsophorous daily - PICC line inserted by IR 03/23/17 now functional, R femoral line removed - Permacath removed by surgery - Ergocalcierol 1 capsule PO Q7D - Procrit - Vancomycin 1gram IVPB 3 times weeks post dialysis Endo: Type 2 Diabetes, poorly controlled - Accuchecks ACHS - Regular Insulin high dose protocol for coverahe - Lantus 25u SC HS - A1c of 8.9 02/18/17 GI: Failure to thrive/decreased appetite, dysphagia - GI consult on board ([place]) - As of 03/19/17 GI did not recommend PEG placement due to patient's significant medical comorbidities - Soft diet - C dif neg (02/28) Heme: Anemia of chronic disease - Hgb 8.0 - Procrit 10,000U IV on dialysis days - Ferrlecit 125mg IVPB TTS MSK: -Low ext arterial duplex (02/04/17) -occlusion R post tib artery, 50-75% stenosis right mid popliteal & proximal anterior tib arteries -occlusion of left post tib artery, >75% stenosis left proximal ant tibial artery, 50-75% stenosis left distal SFA & proximal popliteal a. - Podiatry on board (Dr. Avery) for left foot diabetic ulcer - Pt's family refuses lower extremity amputation at this time despite recommendations from Dr. Avery and Dr. Broussard ID: Non-healing left heel ulcer, previously VRE positive - Leukocytosis - VRE (left foot ulcer) and C. diff positive on admission, currently resolved - Infectious Disease on board (Dr. Wellington) - Podiatry on board (Dr. Avery) for left foot diabetic ulcer - Pt's family refuses lower extremity amputation at this time despite recommendations from Dr. Avery and Dr. Broussard - Tylenol prn PPX: - Protonix 40mg PO switched to IVP - Heparin 5000 U SC Q12 - Nephro-kevin vitamins - SCDs <Gamal Walden - Last Filed: 03/27/17 16:00> CCU Objective - Vital Signs / Intake & Output Vital Signs (Last 4 hours): Vital Signs Pulse Resp BP Pulse Ox 03/27/17 14:20 86 14 147/62 99 03/27/17 13:20 81 35 H 130/50 L 100 03/27/17 12:20 82 30 H 130/50 L 100 03/27/17 11:35 130/50 L 03/27/17 11:30 81 27 H 100 Intake and Output (Last 8hrs): Intake & Output 03/27/17 03/27/17 03/27/17 06:59 14:59 22:59 Intake Total 220 680 Output Total 0 Balance 220 680 Weight 147 lb 7.828 oz Intake: Intake, IV Amount 100 100 Right PICC 100 100 Oral 120 580 Output: Stool 0 Other: # Bowel Movements 1 1 - Medications Active Medications: Active Medications Generic Name Dose Route Start Last Admin Trade Name Freq PRN Reason Stop Dose Admin Acetaminophen 650 mg 03/27/17 10:47 03/27/17 11:02 Tylenol 325mg Tab PO 650 mg Q6 PRN Administration Pain, moderate (4-7) Brimonidine Tartrate 1 ml 02/20/17 19:00 03/27/17 10:16 Alphagan 0.2% Opht OU 1 drop TID ELINA Administration Collagenase 0 gm 03/18/17 10:00 03/27/17 14:06 Santyl TOP 1 applic DAILY ELINA Administration Dextrose 0 ml 02/27/17 12:44 Dextrose 50% Inj IV STAT PRN Hyglycemia Protocol Protocol Dextrose 0 gm 02/27/17 12:44 Glutose 15 PO ONCE PRN Hypoglycemia Protocol Protocol Epoetin Maxwell 10,000 unit 03/07/17 11:30 03/26/17 10:11 Procrit IV 10,000 unit TTS ELINA Administration Ergocalciferol 1 cap 03/24/17 00:15 03/24/17 00:47 Drisdol 50,000 Intl Units Cap PO 1 cap Q7D ELINA Administration Ferric Sodium Gluconate Complex 125 mg 03/19/17 13:00 03/26/17 10:10 Ferrlecit IVPB 03/28/17 10:01 125 mg TTS ELINA Administration Glucagon 0 mg 02/27/17 12:44 Glucagen Diagnostic Kit IM STAT PRN Hypoglycemia Protocol Protocol Heparin Sodium (Porcine) 5,000 units 03/27/17 12:30 03/27/17 13:11 Heparin SC 5,000 units Q12 ELINA Administration Vancomycin/Sodium Chloride 1 gm in 200 mls @ 133.333 mls/hr 03/28/17 10:00 Vancomycin 1 Gm/Ns 200 Ml IVPB TTS ELINA Insulin Glargine 25 unit 03/06/17 17:19 03/16/17 22:27 Lantus SC Not Given HS ELINA Insulin Human Regular 0 unit 03/18/17 16:30 03/27/17 11:27 Novolin R SC 6 unit ACHS ELINA Administration Protocol Latanoprost 0.02 ml 02/20/17 22:00 03/26/17 21:17 Xalatan Opht OU 0.02 ml HS ELINA Administration Lisinopril 20 mg 03/19/17 10:00 03/27/17 10:17 Zestril PO Not Given DAILY ELINA Ondansetron HCl 4 mg 03/27/17 08:20 03/27/17 08:31 Zofran Inj IVP 4 mg Q8H PRN Administration Nausea/Vomiting Pantoprazole Sodium 40 mg 03/26/17 12:00 03/27/17 10:15 Protonix Inj IVP 40 mg DAILY ELINA Administration Rosuvastatin Calcium 10 mg 02/18/17 22:00 03/26/17 21:16 Crestor PO 10 mg HS ELINA Administration Timolol Maleate 1 drop 02/20/17 19:00 03/27/17 10:16 Timoptic 0.5% Ophth Soln OU 1 drop BID ELINA Administration Vitamin B Complex/Vit C/Folic Acid 1 tab 03/16/17 08:00 03/27/17 07:57 Nephro-Kevin PO 1 tab 0800 ELINA Administration - Patient Studies Lab Studies: Microbiology Studies 03/27/17 10:30 Fungal Culture - Preliminary Pleural Fluid 03/25/17 18:00 Blood Culture - Preliminary Blood NO GROWTH AFTER 24 HOURS 03/25/17 18:00 Blood Culture - Preliminary Blood NO GROWTH AFTER 24 HOURS 03/25/17 16:00 MRSA Culture (Admit) - Final Naris MRSA NOT DETECTED Lab Studies 03/27/17 03/27/17 03/27/17 Range/Units 11:23 10:09 09:00 WBC (4.8-10.8) K/uL RBC (3.80-5.20) Mil/uL Hgb (11.0-16.0) g/dL Hct (34.0-47.0) % MCV (81.0-99.0) fL MCH (27.0-31.0) pg MCHC (33.0-37.0) g/dL RDW (11.5-14.5) % Plt Count (130-400) K/uL MPV (7.2-11.7) fL Neut % (Auto) (50.0-75.0) % Lymph % (Auto) (20.0-40.0) % [place] % (Auto) (0.0-10.0) % Eos % (Auto) (0.0-4.0) % Baso % (Auto) (0.0-2.0) % Neut # (1.8-7.0) K/uL Lymph # (1.0-4.3) K/uL [place] # (0.0-0.8) K/uL Eos # (0.0-0.7) K/uL Baso # (0.0-0.2) K/uL Neutrophils % (Manual) (50-75) % Lymphocytes % (Manual) (20-40) % Monocytes % (Manual) (0-10) % Platelet Estimate (NORMAL) Polychromasia Hypochromasia (manual) Poikilocytosis (manual Anisocytosis (manual) Microcytosis (manual) Macrocytosis (manual) Puncture Site pCO2 (35-45) mm/Hg pO2 (80-100) mm/Hg HCO3 (21-28) mmol/L ABG pH (7.35-7.45) ABG Total CO2 (22-28) mmol/L ABG O2 Saturation (95-98) % ABG Base Excess (-2.0-3.0) mmol/L Joey Test ABG Potassium (3.6-5.2) mmol/L Sodium (132-148) mmol/l Chloride (98-107) mmol/L Glucose (65-105) mg/dl Lactate (0.7-2.1) mmol/L Liter Flow Potassium (3.6-5.2) mmol/L Carbon Dioxide (22-30) mmol/L Anion Gap (10-20) BUN (7-17) mg/dL Creatinine (0.7-1.2) mg/dL Est GFR ( Amer) Est GFR (Non-Af Amer) POC Glucose (mg/dL) 270 H (65-110) mg/dL Random Glucose (65-105) mg/dL Calcium (8.6-10.4) mg/dl Phosphorus (2.5-4.5) mg/dL Magnesium (1.6-2.3) mg/dL Total Bilirubin (0.2-1.3) mg/dL AST (14-36) U/L ALT (9-52) U/L Alkaline Phosphatase (38-126) U/L Total Protein (6.3-8.3) g/dL Albumin (3.5-5.0) g/dL Globulin (2.2-3.9) gm/dL Albumin/Globulin Ratio (1.0-2.1) Arterial Blood Potassium (3.6-5.2) mmol/L Fluid Source Pleural/thoracentesi Fluid Appearance Clear (CLEAR) Fluid WBC 39.0 (0.0-300.0) /mm3 Fluid RBC 28.0 H (0.0-0.0) /mm3 Fluid Tot Cell Count 100 H (0-0) Fluid Neutrophils 10.0 H (0-0) % Fluid Lymphocytes 87.0 H (0-0) % Fld Monocyte/Macrophag 3 H (0-0) % Fluid Comment C. difficile Ag & Toxin Negative (NEGATIVE) 03/27/17 03/27/17 03/27/17 Range/Units 07:19 06:04 06:04 WBC 17.2 H (4.8-10.8) K/uL RBC 2.67 L (3.80-5.20) Mil/uL Hgb 8.0 L (11.0-16.0) g/dL Hct 26.2 L (34.0-47.0) % MCV 98.1 D (81.0-99.0) fL MCH 30.2 (27.0-31.0) pg MCHC 30.8 L (33.0-37.0) g/dL RDW 23.3 H (11.5-14.5) % Plt Count 316 (130-400) K/uL MPV 8.3 (7.2-11.7) fL Neut % (Auto) 81.0 H (50.0-75.0) % Lymph % (Auto) 9.3 L (20.0-40.0) % [place] % (Auto) 9.1 (0.0-10.0) % Eos % (Auto) 0.4 (0.0-4.0) % Baso % (Auto) 0.2 (0.0-2.0) % Neut # 13.9 H (1.8-7.0) K/uL Lymph # 1.6 (1.0-4.3) K/uL [place] # 1.6 H (0.0-0.8) K/uL Eos # 0.1 (0.0-0.7) K/uL Baso # 0.0 (0.0-0.2) K/uL Neutrophils % (Manual) 82 H (50-75) % Lymphocytes % (Manual) 9 L (20-40) % Monocytes % (Manual) 9 (0-10) % Platelet Estimate Normal (NORMAL) Polychromasia Slight Hypochromasia (manual) Moderate Poikilocytosis (manual Slight Anisocytosis (manual) Slight Microcytosis (manual) Slight Macrocytosis (manual) Slight Puncture Site pCO2 (35-45) mm/Hg pO2 (80-100) mm/Hg HCO3 (21-28) mmol/L ABG pH (7.35-7.45) ABG Total CO2 (22-28) mmol/L ABG O2 Saturation (95-98) % ABG Base Excess (-2.0-3.0) mmol/L Joey Test ABG Potassium (3.6-5.2) mmol/L Sodium 129 L (132-148) mmol/l Chloride 95 L (98-107) mmol/L Glucose (65-105) mg/dl Lactate (0.7-2.1) mmol/L Liter Flow Potassium 3.7 (3.6-5.2) mmol/L Carbon Dioxide 27 (22-30) mmol/L Anion Gap 11 (10-20) BUN 25 H (7-17) mg/dL Creatinine 1.2 (0.7-1.2) mg/dL Est GFR ( Amer) 54 Est GFR (Non-Af Amer) 44 POC Glucose (mg/dL) 257 H (65-110) mg/dL Random Glucose 200 H (65-105) mg/dL Calcium 7.5 L (8.6-10.4) mg/dl Phosphorus 2.8 (2.5-4.5) mg/dL Magnesium 2.0 (1.6-2.3) mg/dL Total Bilirubin 0.4 (0.2-1.3) mg/dL AST 30 (14-36) U/L ALT 37 (9-52) U/L Alkaline Phosphatase 189 H (38-126) U/L Total Protein 5.3 L (6.3-8.3) g/dL Albumin 2.3 L (3.5-5.0) g/dL Globulin 3.1 (2.2-3.9) gm/dL Albumin/Globulin Ratio 0.7 L (1.0-2.1) Arterial Blood Potassium (3.6-5.2) mmol/L Fluid Source Fluid Appearance (CLEAR) Fluid WBC (0.0-300.0) /mm3 Fluid RBC (0.0-0.0) /mm3 Fluid Tot Cell Count (0-0) Fluid Neutrophils (0-0) % Fluid Lymphocytes (0-0) % Fld Monocyte/Macrophag (0-0) % Fluid Comment C. difficile Ag & Toxin (NEGATIVE) 03/27/17 03/26/17 03/26/17 Range/Units 05:10 21:08 16:19 WBC (4.8-10.8) K/uL RBC (3.80-5.20) Mil/uL Hgb (11.0-16.0) g/dL Hct (34.0-47.0) % MCV (81.0-99.0) fL MCH (27.0-31.0) pg MCHC (33.0-37.0) g/dL RDW (11.5-14.5) % Plt Count (130-400) K/uL MPV (7.2-11.7) fL Neut % (Auto) (50.0-75.0) % Lymph % (Auto) (20.0-40.0) % [place] % (Auto) (0.0-10.0) % Eos % (Auto) (0.0-4.0) % Baso % (Auto) (0.0-2.0) % Neut # (1.8-7.0) K/uL Lymph # (1.0-4.3) K/uL [place] # (0.0-0.8) K/uL Eos # (0.0-0.7) K/uL Baso # (0.0-0.2) K/uL Neutrophils % (Manual) (50-75) % Lymphocytes % (Manual) (20-40) % Monocytes % (Manual) (0-10) % Platelet Estimate (NORMAL) Polychromasia Hypochromasia (manual) Poikilocytosis (manual Anisocytosis (manual) Microcytosis (manual) Macrocytosis (manual) Puncture Site Rr pCO2 43 (35-45) mm/Hg pO2 98 (80-100) mm/Hg HCO3 29.0 H (21-28) mmol/L ABG pH 7.45 (7.35-7.45) ABG Total CO2 31.2 H (22-28) mmol/L ABG O2 Saturation 98.4 H (95-98) % ABG Base Excess 5.2 H (-2.0-3.0) mmol/L Joey Test Pos ABG Potassium 3.8 (3.6-5.2) mmol/L Sodium 134.0 (132-148) mmol/l Chloride 97.0 L (98-107) mmol/L Glucose 232 H (65-105) mg/dl Lactate 1.1 (0.7-2.1) mmol/L Liter Flow 4.0 Potassium (3.6-5.2) mmol/L Carbon Dioxide (22-30) mmol/L Anion Gap (10-20) BUN (7-17) mg/dL Creatinine (0.7-1.2) mg/dL Est GFR ( Amer) Est GFR (Non-Af Amer) POC Glucose (mg/dL) 314 H 249 H (65-110) mg/dL Random Glucose (65-105) mg/dL Calcium (8.6-10.4) mg/dl Phosphorus (2.5-4.5) mg/dL Magnesium (1.6-2.3) mg/dL Total Bilirubin (0.2-1.3) mg/dL AST (14-36) U/L ALT (9-52) U/L Alkaline Phosphatase (38-126) U/L Total Protein (6.3-8.3) g/dL Albumin (3.5-5.0) g/dL Globulin (2.2-3.9) gm/dL Albumin/Globulin Ratio (1.0-2.1) Arterial Blood Potassium 3.8 (3.6-5.2) mmol/L Fluid Source Fluid Appearance (CLEAR) Fluid WBC (0.0-300.0) /mm3 Fluid RBC (0.0-0.0) /mm3 Fluid Tot Cell Count (0-0) Fluid Neutrophils (0-0) % Fluid Lymphocytes (0-0) % Fld Monocyte/Macrophag (0-0) % Fluid Comment C. difficile Ag & Toxin (NEGATIVE) Laboratory Results - last 24 hr 03/26/17 03/26/17 03/27/17 16:19 21:08 05:10 WBC RBC Hgb Hct MCV MCH MCHC RDW Plt Count MPV Neut % (Auto) Lymph % (Auto) [place] % (Auto) Eos % (Auto) Baso % (Auto) Neut # Lymph # [place] # Eos # Baso # Neutrophils % (Manual) Lymphocytes % (Manual) Monocytes % (Manual) Platelet Estimate Polychromasia Hypochromasia (manual) Poikilocytosis (manual Anisocytosis (manual) Microcytosis (manual) Macrocytosis (manual) Puncture Site Rr pCO2 43 pO2 98 HCO3 29.0 H ABG pH 7.45 ABG Total CO2 31.2 H ABG O2 Saturation 98.4 H ABG Base Excess 5.2 H Joey Test Pos ABG Potassium 3.8 Sodium 134.0 Chloride 97.0 L Glucose 232 H Lactate 1.1 Liter Flow 4.0 Potassium Carbon Dioxide Anion Gap BUN Creatinine Est GFR ( Amer) Est GFR (Non-Af Amer) POC Glucose (mg/dL) 249 H 314 H Random Glucose Calcium Phosphorus Magnesium Total Bilirubin AST ALT Alkaline Phosphatase Total Protein Albumin Globulin Albumin/Globulin Ratio Arterial Blood Potassium 3.8 Fluid Source Fluid Appearance Fluid WBC Fluid RBC Fluid Tot Cell Count Fluid Neutrophils Fluid Lymphocytes Fld Monocyte/Macrophag Fluid Comment C. difficile Ag & Toxin 03/27/17 03/27/17 03/27/17 06:04 06:04 07:19 WBC 17.2 H RBC 2.67 L Hgb 8.0 L Hct 26.2 L MCV 98.1 D MCH 30.2 MCHC 30.8 L RDW 23.3 H Plt Count 316 MPV 8.3 Neut % (Auto) 81.0 H Lymph % (Auto) 9.3 L [place] % (Auto) 9.1 Eos % (Auto) 0.4 Baso % (Auto) 0.2 Neut # 13.9 H Lymph # 1.6 [place] # 1.6 H Eos # 0.1 Baso # 0.0 Neutrophils % (Manual) 82 H Lymphocytes % (Manual) 9 L Monocytes % (Manual) 9 Platelet Estimate Normal Polychromasia Slight Hypochromasia (manual) Moderate Poikilocytosis (manual Slight Anisocytosis (manual) Slight Microcytosis (manual) Slight Macrocytosis (manual) Slight Puncture Site pCO2 pO2 HCO3 ABG pH ABG Total CO2 ABG O2 Saturation ABG Base Excess Joey Test ABG Potassium Sodium 129 L Chloride 95 L Glucose Lactate Liter Flow Potassium 3.7 Carbon Dioxide 27 Anion Gap 11 BUN 25 H Creatinine 1.2 Est GFR ( Amer) 54 Est GFR (Non-Af Amer) 44 POC Glucose (mg/dL) 257 H Random Glucose 200 H Calcium 7.5 L Phosphorus 2.8 Magnesium 2.0 Total Bilirubin 0.4 AST 30 ALT 37 Alkaline Phosphatase 189 H Total Protein 5.3 L Albumin 2.3 L Globulin 3.1 Albumin/Globulin Ratio 0.7 L Arterial Blood Potassium Fluid Source Fluid Appearance Fluid WBC Fluid RBC Fluid Tot Cell Count Fluid Neutrophils Fluid Lymphocytes Fld Monocyte/Macrophag Fluid Comment C. difficile Ag & Toxin 03/27/17 03/27/17 03/27/17 09:00 10:09 11:23 WBC RBC Hgb Hct MCV MCH MCHC RDW Plt Count MPV Neut % (Auto) Lymph % (Auto) [place] % (Auto) Eos % (Auto) Baso % (Auto) Neut # Lymph # [place] # Eos # Baso # Neutrophils % (Manual) Lymphocytes % (Manual) Monocytes % (Manual) Platelet Estimate Polychromasia Hypochromasia (manual) Poikilocytosis (manual Anisocytosis (manual) Microcytosis (manual) Macrocytosis (manual) Puncture Site pCO2 pO2 HCO3 ABG pH ABG Total CO2 ABG O2 Saturation ABG Base Excess Joey Test ABG Potassium Sodium Chloride Glucose Lactate Liter Flow Potassium Carbon Dioxide Anion Gap BUN Creatinine Est GFR ( Amer) Est GFR (Non-Af Amer) POC Glucose (mg/dL) 270 H Random Glucose Calcium Phosphorus Magnesium Total Bilirubin AST ALT Alkaline Phosphatase Total Protein Albumin Globulin Albumin/Globulin Ratio Arterial Blood Potassium Fluid Source Pleural/thoracentesi Fluid Appearance Clear Fluid WBC 39.0 Fluid RBC 28.0 H Fluid Tot Cell Count 100 H Fluid Neutrophils 10.0 H Fluid Lymphocytes 87.0 H Fld Monocyte/Macrophag 3 H Fluid Comment C. difficile Ag & Toxin Negative Critical Care Progress Note - Nutrition Nutrition: Nutrition Category Date Time Status Soft [Dysphagia/Modified Consistency Diet] [DIET] Diets 03/18/17 Lunch Active Attending/Attestation - Attestation I have personally seen and examined this patient.: Yes I have fully participated in the care of the patient.: Yes I have reviewed all pertinent clinical information: Yes Notes (Text): 03/27/17 15:27 I have seen and examined the patient. Medical records, lab studies, and imaging were reviewed by me and a management plan was formulated on multidisciplinary rounds with resident Dr. Marquez. I agree with their documented assessment and plan. Patient underwent large volume thoracentesis of left lung today, tolerated well , will try to titrate down BIPAP requirements. Pulmonary edema most likley secondary to diastolic HF/HFpEF, continue dialysis for fluid control. Sepsis from left heel ulcer, started on Vancomycin after dialysis T/TH/S. Patient has refused BKA. Critical Care Time 35 minutes. Multi-disciplinary rounds were performed with house staff, nursing, speech therapy, respiratory therapy, pharmacy and nutrition with integrated input from the primary team/attending and other consulting services. The documented time is cumulative and includes review of patient data/exams/labs/chart review and examination of the patient on rounds and throughout the day; time is exclusive of any procedures or teaching time. 03/27/17 15:28 03/27/17 15:56 03/27/17 15:59
--- NOTE | 2017-03-27 16:55 | CP.PCM.PN ---
Subjective - Date & Time of Evaluation Date of Evaluation: 03/27/17 Time of Evaluation: 07:00 - Subjective Subjective: remains afebrile recultured left foot ulcer same consider palliative measures Objective - Vital Signs/Intake and Output Vital Signs (last 24 hours): Temp Pulse Resp BP Pulse Ox 98.6 F 83 25 H 141/58 L 100 03/27/17 16:00 03/27/17 16:21 03/27/17 16:21 03/27/17 16:21 03/27/17 16:21 Intake and Output: 03/27/17 03/27/17 06:59 18:59 Intake Total 680 680 Output Total 0 Balance 680 680 - Medications Medications: Current Medications Acetaminophen (Tylenol 325mg Tab) 650 mg PO Q6 PRN PRN Reason: Pain, moderate (4-7) Last Admin: 03/27/17 11:02 Dose: 650 mg Brimonidine Tartrate (Alphagan 0.2% Opht) 1 ml OU TID [facility] Last Admin: 03/27/17 10:16 Dose: 1 drop Collagenase (Santyl) 0 gm TOP DAILY [facility] Last Admin: 03/27/17 14:06 Dose: 1 applic Dextrose (Dextrose 50% Inj) 0 ml IV STAT PRN; Protocol PRN Reason: Hyglycemia Protocol Dextrose (Glutose 15) 0 gm PO ONCE PRN; Protocol PRN Reason: Hypoglycemia Protocol Epoetin Maxwell (Procrit) 10,000 unit IV TTS [facility] Last Admin: 03/26/17 10:11 Dose: 10,000 unit Ergocalciferol (Drisdol 50,000 Intl Units Cap) 1 cap PO Q7D [facility] Last Admin: 03/24/17 00:47 Dose: 1 cap Ferric Sodium Gluconate Complex (Ferrlecit) 125 mg IVPB TTS [facility] Stop: 03/28/17 10:01 Last Admin: 03/26/17 10:10 Dose: 125 mg Glucagon (Glucagen Diagnostic Kit) 0 mg IM STAT PRN; Protocol PRN Reason: Hypoglycemia Protocol Heparin Sodium (Porcine) (Heparin) 5,000 units SC Q12 [facility] Last Admin: 03/27/17 13:11 Dose: 5,000 units Vancomycin/Sodium Chloride (Vancomycin 1 Gm/Ns 200 Ml) 1 gm in 200 mls @ 133.333 mls/hr IVPB TTS [facility] Insulin Glargine (Lantus) 25 unit SC HS [facility] Last Admin: 03/16/17 22:27 Dose: Not Given Insulin Human Regular (Novolin R) 0 unit SC ACHS [facility] PRN Reason: Protocol Last Admin: 03/27/17 11:27 Dose: 6 unit Latanoprost (Xalatan Opht) 0.02 ml OU HS [facility] Last Admin: 03/26/17 21:17 Dose: 0.02 ml Lisinopril (Zestril) 20 mg PO DAILY [facility] Last Admin: 03/27/17 10:17 Dose: Not Given Ondansetron HCl (Zofran Inj) 4 mg IVP Q8H PRN PRN Reason: Nausea/Vomiting Last Admin: 03/27/17 08:31 Dose: 4 mg Pantoprazole Sodium (Protonix Inj) 40 mg IVP DAILY [facility] Last Admin: 03/27/17 10:15 Dose: 40 mg Rosuvastatin Calcium (Crestor) 10 mg PO HS [facility] Last Admin: 03/26/17 21:16 Dose: 10 mg Timolol Maleate (Timoptic 0.5% Oph Soln) 1 drop OU BID [facility] Last Admin: 03/27/17 10:16 Dose: 1 drop Vitamin B Complex/Vit C/Folic Acid (Nephro-Alonzo) 1 tab PO 0800 [facility] Last Admin: 03/27/17 07:57 Dose: 1 tab - Labs Labs: 03/27/17 06:04 03/27/17 06:04 PT 12.3 SECONDS (9.7-12.2) H 02/18/17 05:30 INR 1.1 02/18/17 05:30 APTT 30 SECONDS (21-34) 02/18/17 05:30 - Constitutional Appears: Non-toxic, Chronically Ill - Head Exam Head Exam: NORMOCEPHALIC - Eye Exam Eye Exam: PERRL. absent: Scleral icterus - ENT Exam ENT Exam: Mucous Membranes Dry - Neck Exam Neck Exam: absent: Lymphadenopathy - Respiratory Exam Respiratory Exam: Decreased Breath Sounds - Cardiovascular Exam Cardiovascular Exam: REGULAR RHYTHM - GI/Abdominal Exam GI & Abdominal Exam: Distended, Soft - Rectal Exam Rectal Exam: Deferred - Exam Exam: NORMAL INSPECTION - Extremities Exam Extremities Exam: Pedal Edema, Tenderness. absent: Calf Tenderness - Back Exam Back Exam: absent: CVA tenderness (L), CVA tenderness (R) - Neurological Exam Neurological Exam: Alert, Awake, Oriented x3 Assessment and Plan (1) Change in mental status Status: Acute (2) End stage renal disease on dialysis Status: Acute (3) Heel ulcer Status: Acute (4) IDDM (insulin dependent diabetes mellitus) Status: Chronic - Assessment and Plan (Free Text) Assessment: cont iv rx add Vanco recultured consider palliative measures
--- NOTE | 2017-03-27 19:32 | CP.PCM.PN ---
Subjective - Date & Time of Evaluation Date of Evaluation: 03/27/17 Time of Evaluation: 14:00 - Subjective Subjective: SEEN ON RENAL F/U IN ICU FAMILY WELL ON THE BED SIDE PT IS ALERT AND RESPONSIVE ORIONTED TO HER RELATIVES .. SHE NAMED HER SIS IN LAW AND HER SHE RECODNIZE ME AND MY NAME .. HOWEVER SHE IS VERY SLUGISH Objective - Vital Signs/Intake and Output Vital Signs (last 24 hours): Temp Pulse Resp BP Pulse Ox 98.6 F 83 25 H 141/58 L 100 03/27/17 16:00 03/27/17 16:21 03/27/17 16:21 03/27/17 16:21 03/27/17 16:21 Intake and Output: 03/27/17 03/28/17 18:59 06:59 Intake Total 680 Balance 680 - Medications Medications: Current Medications Acetaminophen (Tylenol 325mg Tab) 650 mg PO Q6 PRN PRN Reason: Pain, moderate (4-7) Last Admin: 03/27/17 11:02 Dose: 650 mg Brimonidine Tartrate (Alphagan 0.2% Opht) 1 ml OU TID [facility] Last Admin: 03/27/17 18:58 Dose: 1 drop Collagenase (Santyl) 0 gm TOP DAILY [facility] Last Admin: 03/27/17 14:06 Dose: 1 applic Dextrose (Dextrose 50% Inj) 0 ml IV STAT PRN; Protocol PRN Reason: Hyglycemia Protocol Dextrose (Glutose 15) 0 gm PO ONCE PRN; Protocol PRN Reason: Hypoglycemia Protocol Epoetin Maxwell (Procrit) 10,000 unit IV TTS [facility] Last Admin: 03/26/17 10:11 Dose: 10,000 unit Ergocalciferol (Drisdol 50,000 Intl Units Cap) 1 cap PO Q7D [facility] Last Admin: 03/24/17 00:47 Dose: 1 cap Ferric Sodium Gluconate Complex (Ferrlecit) 125 mg IVPB TTS [facility] Stop: 03/28/17 10:01 Last Admin: 03/26/17 10:10 Dose: 125 mg Glucagon (Glucagen Diagnostic Kit) 0 mg IM STAT PRN; Protocol PRN Reason: Hypoglycemia Protocol Heparin Sodium (Porcine) (Heparin) 5,000 units SC Q12 [facility] Last Admin: 03/27/17 13:11 Dose: 5,000 units Vancomycin/Sodium Chloride (Vancomycin 1 Gm/Ns 200 Ml) 1 gm in 200 mls @ 133.333 mls/hr IVPB TTS [facility] Insulin Glargine (Lantus) 25 unit SC HS [facility] Last Admin: 03/16/17 22:27 Dose: Not Given Insulin Human Regular (Novolin R) 0 unit SC ACHS [facility] PRN Reason: Protocol Last Admin: 03/27/17 17:28 Dose: 6 unit Latanoprost (Xalatan Opht) 0.02 ml OU HS [facility] Last Admin: 03/26/17 21:17 Dose: 0.02 ml Lisinopril (Zestril) 20 mg PO DAILY [facility] Last Admin: 03/27/17 10:17 Dose: Not Given Ondansetron HCl (Zofran Inj) 4 mg IVP Q8H PRN PRN Reason: Nausea/Vomiting Last Admin: 03/27/17 08:31 Dose: 4 mg Pantoprazole Sodium (Protonix Inj) 40 mg IVP DAILY [facility] Last Admin: 03/27/17 10:15 Dose: 40 mg Rosuvastatin Calcium (Crestor) 10 mg PO HS [facility] Last Admin: 03/26/17 21:16 Dose: 10 mg Timolol Maleate (Timoptic 0.5% [facility]) 1 drop OU BID [facility] Last Admin: 03/27/17 17:30 Dose: 1 drop Vitamin B Complex/Vit C/Folic Acid (Nephro-Alonzo) 1 tab PO 0800 [facility] Last Admin: 03/27/17 07:57 Dose: 1 tab - Labs Labs: 03/27/17 06:04 03/27/17 06:04 PT 12.3 SECONDS (9.7-12.2) H 02/18/17 05:30 INR 1.1 02/18/17 05:30 APTT 30 SECONDS (21-34) 02/18/17 05:30 Assessment and Plan - Assessment and Plan (Free Text) Assessment: ESRD ON HD M W F ANEMIA OF CKD .. H/H LOW BUT STABLE MMULTIPLE CO MORBIDITIES P : C/O CURRENT CARE C/O PRESENT MANAGMENT
[2017-03-27] MEDS: Latanoprost 2.5 ml Opht Soln OU SCH ×2 (21:21→21:22)
[2017-03-28] MEDS: (Novolin R) Insulin Human Regular 100 units/ml vial SC SCH ×4 (08:00→21:32)
[2017-03-28] MEDS: Collagenase 250 Units/gm Ointment(30 gm) TOP SCH (08:30)
[2017-03-28] MEDS: Multivitamin Vitamin B Complex (Nephro-Vite) Tab PO SCH (08:47)
[2017-03-28] MEDS: Brimonidine 0.2% Opth Sol (5ml) OU SCH ×3 (10:00→19:24)
[2017-03-28 10:13] LABS: BASO # 0.1 K/uL (0.0-0.2); BASO % 0.4 % (0.0-2.0); EOS % 0.1 % (0.0-4.0); HEMATOCRIT 25.8 % (34.0-47.0); LYMPH # 0.8 K/uL (1.0-4.3); LYMPH % 4.7 % (20.0-40.0); MEAN CELL VOLUME 98.8 fL (81.0-99.0); MEAN CORPUSCULAR HEMOGLOBIN 30.2 pg (27.0-31.0); MEAN CORPUSCULAR HGB CONC 30.6 g/dL (33.0-37.0); MEAN PLATELET VOLUME 8.4 fL (7.2-11.7); MONO # 0.6 K/uL (0.0-0.8); MONO % 3.3 % (0.0-10.0); PLATELET COUNT 324 K/uL (130-400); RED CELL DISTRIBUTION WIDTH 23.2 % (11.5-14.5)
[2017-03-28 10:21] LABS: POTASSIUM 3.5 mmol/L (3.6-5.2)
[2017-03-28 10:23] LABS: ALB/GLOB RATIO 0.7 (1.0-2.1); BILIRUBIN,TOTAL 0.5 mg/dL (0.2-1.3); TOTAL PROTEIN 5.3 g/dL (6.3-8.3)
[2017-03-28 10:24] LABS: CALCIUM 7.4 mg/dl (8.6-10.4); PHOSPHOROUS 3.1 mg/dL (2.5-4.5)
[2017-03-28] MEDS: Epoetin Alfa 10,000 unit/ml Dialysis IV SCH (10:33)
[2017-03-28] MEDS: Ferric Sodium Gluconat Complex 62.5 mg/5 ml Vial IVPB SCH (10:33)
[2017-03-28 10:41] LABS: NEUTROPHIL 93 % (50-75); TOTAL CELLS COUNTED 100
[2017-03-28] MEDS: Pantoprazole 40 mg EC Tab PO SCH (11:00)
[2017-03-28] MEDS: Vancomycin 1 gm/NS 200 ml 1 GM/200 ML BAG IVPB SCH (13:26)
--- NOTE | 2017-03-28 15:31 | CP.PCM.PN ---
<Viviane Lynn - Last Filed: 03/28/17 15:27> Subjective - Date & Time of Evaluation Date of Evaluation: 03/28/17 Time of Evaluation: 10:30 - Subjective Subjective: PGY 2 Medicine Note- Dr. Myrick's service Pt seen and examined in no apparent acute distress. Patient undergoing dialysis at the time of evaluation. Patient was tired. She denied any chest pain, shortness of breath, subjective fevers or chills at this time. Objective - Vital Signs/Intake and Output Vital Signs (last 24 hours): Temp Pulse Resp BP Pulse Ox 98.2 F 93 H 26 H 134/53 L 100 03/28/17 12:45 03/28/17 12:45 03/28/17 12:45 03/28/17 12:45 03/28/17 12:45 Intake and Output: 03/28/17 03/28/17 06:59 18:59 Intake Total 250 220 Output Total 1 0 Balance 249 220 - Medications Medications: Current Medications Acetaminophen (Tylenol 325mg Tab) 650 mg PO Q6 PRN PRN Reason: Pain, moderate (4-7) Last Admin: 03/28/17 13:21 Dose: 650 mg Brimonidine Tartrate (Alphagan 0.2% Opht) 1 ml OU TID [facility] Last Admin: 03/28/17 13:24 Dose: 1 drop Collagenase (Santyl) 0 gm TOP DAILY [facility] Last Admin: 03/28/17 08:30 Dose: 1 applic Dextrose (Dextrose 50% Inj) 0 ml IV STAT PRN; Protocol PRN Reason: Hyglycemia Protocol Dextrose (Glutose 15) 0 gm PO ONCE PRN; Protocol PRN Reason: Hypoglycemia Protocol Epoetin Maxwell (Procrit) 10,000 unit IV TTS [facility] Last Admin: 03/28/17 10:33 Dose: 10,000 unit Ergocalciferol (Drisdol 50,000 Intl Units Cap) 1 cap PO Q7D [facility] Last Admin: 03/24/17 00:47 Dose: 1 cap Glucagon (Glucagen Diagnostic Kit) 0 mg IM STAT PRN; Protocol PRN Reason: Hypoglycemia Protocol Heparin Sodium (Porcine) (Heparin) 5,000 units SC Q12 [facility] Last Admin: 03/28/17 11:00 Dose: 5,000 units Vancomycin/Sodium Chloride (Vancomycin 1 Gm/Ns 200 Ml) 1 gm in 200 mls @ 133.333 mls/hr IVPB TTS [facility] Last Admin: 03/28/17 13:26 Dose: 133.333 mls/hr Insulin Glargine (Lantus) 25 unit SC HS [facility] Last Admin: 03/16/17 22:27 Dose: Not Given Insulin Human Regular (Novolin R) 0 unit SC ACHS [facility] PRN Reason: Protocol Last Admin: 03/28/17 13:00 Dose: 2 unit Latanoprost (Xalatan Opht) 0.02 ml OU HS [facility] Last Admin: 03/27/17 21:22 Dose: 0.02 ml Lisinopril (Zestril) 20 mg PO DAILY [facility] Last Admin: 03/28/17 11:00 Dose: Not Given Pantoprazole Sodium (Protonix Ec Tab) 40 mg PO DAILY [facility] Last Admin: 03/28/17 11:00 Dose: 40 mg Rosuvastatin Calcium (Crestor) 10 mg PO HS [facility] Last Admin: 03/27/17 21:20 Dose: 10 mg Timolol Maleate (Timoptic 0.5% Oph Soln) 1 drop OU BID [facility] Last Admin: 03/28/17 11:00 Dose: 1 drop Vitamin B Complex/Vit C/Folic Acid (Nephro-Kevin) 1 tab PO 0800 [facility] Last Admin: 03/28/17 08:47 Dose: 1 tab - Labs Labs: 03/28/17 10:10 03/28/17 10:10 PT 12.3 SECONDS (9.7-12.2) H 02/18/17 05:30 INR 1.1 02/18/17 05:30 APTT 30 SECONDS (21-34) 02/18/17 05:30 - Constitutional Appears: Non-toxic, No Acute Distress, Chronically Ill - Head Exam Head Exam: ATRAUMATIC, NORMAL INSPECTION, NORMOCEPHALIC - Eye Exam Eye Exam: EOMI, Normal appearance Pupil Exam: NORMAL ACCOMODATION - Cardiovascular Exam Cardiovascular Exam: +S1, +S2 - GI/Abdominal Exam GI & Abdominal Exam: Soft, Normal Bowel Sounds - Extremities Exam Extremities Exam: Full ROM, Normal Capillary Refill Additional comments: necrotic calcaneal surface extensive into the medial aspect of the foot; dressing noted - Back Exam Back Exam: Full ROM - Neurological Exam Neurological Exam: Awake - Psychiatric Exam Psychiatric exam: Flat Affect - Skin Skin Exam: Dry, Normal Color, Warm Additional comments: necrotic heel Assessment and Plan - Assessment and Plan (Free Text) Assessment: Intermittent Altered Mental Status -likely secondary to poor glycemic control - Neurology on board (Dr. Aguirre) - CT head negative for acute infarction - Discontinued all pain medications, tyelnol prn Cardiac Comorbidties -CHF, HTN. PVD - Echo showed 61% LVEF 03/09/17 - Vascular surgery on board (Dr. Broussard) for PVD - Lisonopril 20mg PO QD - Crestor 10 mg PO HS - R femoral line placed in ICU has been removed Non-healing left heel pressure ulcer -previously VRE positive - Leukocytosis - VRE (left foot ulcer) and C. diff positive on admission, currently resolved - Infectious Disease on board (Dr. Wellington) - Podiatry on board (Dr. Avery) for left foot diabetic ulcer - Pt's family refuses lower extremity amputation at this time despite repeated recommendations from Dr. Avery and Dr. Broussard . Dr. Myrick will revisit with the family as well. - Tylenol prn Dyspnea - Patient has had prior episodes of respiratory distress in the past secondary to effusion. - S/p thoracentesis on 03/27: 900 cc of clear fluid removed from left lung - Most recent CXR 03/27: Decreased left pleural effusion. No pneumothorax. Stable small right pleural effusion. - O2 Sat of 100% on NC 5 L - BiPAP off ESRD on hemodialysis - Pt undergoes hemodialysis //Thu, will dialyze daily to resolve altered mentation - Multiple electrolyte abnormalities throughout this admission, monitor CMPs+ magnesium and phsophorous daily - PICC line inserted by IR 03/23/17 now functional, R femoral line removed - Permacath removed by surgery - Ergocalcierol 1 capsule PO Q7D - [facility] - Vancomycin 1gram IVPB 3 times weeks post dialysis Type 2 Diabetes -poorly controlled - Accuchecks ACHS - Regular Insulin high dose protocol for coverahe - Lantus 25u SC HS - A1c of 8.9 02/18/17 Failure to thrive - Hx of dysphagia - GI consult on board ([place]) - As of 03/19/17 , GI did not recommend PEG placement due to patient's significant medical comorbidities - Soft diet - C diff neg (02/28) Anemia of chronic disease - Hgb stable. Cont to monitor - Procrit 10,000U IV on dialysis days - Ferrlecit 125mg IVPB TTS Peripheral vascular Disease -Low ext arterial duplex (02/04/17) -occlusion R post tib artery, 50-75% stenosis right mid popliteal & proximal anterior tib arteries -occlusion of left post tib artery, >75% stenosis left proximal ant tibial artery, 50-75% stenosis left distal SFA & proximal popliteal a. - Podiatry on board (Dr. Avery) for left foot diabetic ulcer - Pt's family refuses lower extremity amputation at this time despite recommendations from Dr. Avery and Dr. Broussard Prophylactic Measure - Protonix 40mg PO daily - Heparin 5000 U SC Q12 - Nephro-kevin vitamins - SCDs Discussed with attending. Management and planning per Dr. Myrick <Benson Myrick Jr. - Last Filed: 03/29/17 13:27> Objective - Vital Signs/Intake and Output Vital Signs (last 24 hours): Temp Pulse Resp BP Pulse Ox 98.5 F 90 30 H 123/46 L 98 03/29/17 07:00 03/29/17 10:00 03/29/17 10:00 03/29/17 08:14 03/29/17 10:00 Intake and Output: 03/29/17 03/29/17 06:59 18:59 Intake Total Balance - Medications Medications: Current Medications Acetaminophen (Tylenol 325mg Tab) 650 mg PO Q6 PRN PRN Reason: Pain, moderate (4-7) Last Admin: 03/28/17 13:21 Dose: 650 mg Brimonidine Tartrate (Alphagan 0.2% Opht) 1 ml OU TID [facility] Last Admin: 03/29/17 09:39 Dose: 1 drop Collagenase (Santyl) 0 gm TOP DAILY [facility] Last Admin: 03/29/17 09:59 Dose: 1 applic Dextrose (Dextrose 50% Inj) 0 ml IV STAT PRN; Protocol PRN Reason: Hyglycemia Protocol Dextrose (Glutose 15) 0 gm PO ONCE PRN; Protocol PRN Reason: Hypoglycemia Protocol Epoetin Maxwell (Procrit) 10,000 unit IV TTS [facility] Last Admin: 03/28/17 10:33 Dose: 10,000 unit Ergocalciferol (Drisdol 50,000 Intl Units Cap) 1 cap PO Q7D [facility] Last Admin: 03/24/17 00:47 Dose: 1 cap Glucagon (Glucagen Diagnostic Kit) 0 mg IM STAT PRN; Protocol PRN Reason: Hypoglycemia Protocol Heparin Sodium (Porcine) (Heparin) 5,000 units SC Q12 [facility] Last Admin: 03/29/17 09:41 Dose: 5,000 units Vancomycin/Sodium Chloride (Vancomycin 1 Gm/Ns 200 Ml) 1 gm in 200 mls @ 133.333 mls/hr IVPB TTS [facility] Last Admin: 03/28/17 13:26 Dose: 133.333 mls/hr Insulin Glargine (Lantus) 25 unit SC HS [facility] Last Admin: 03/16/17 22:27 Dose: Not Given Insulin Human Regular (Novolin R) 0 unit SC ACHS [facility] PRN Reason: Protocol Last Admin: 03/29/17 12:20 Dose: 4 unit Latanoprost (Xalatan Opht) 0.02 ml OU HS [facility] Last Admin: 03/28/17 21:32 Dose: 0.02 ml Lisinopril (Zestril) 20 mg PO DAILY [facility] Last Admin: 03/29/17 10:03 Dose: 20 mg Pantoprazole Sodium (Protonix Ec Tab) 40 mg PO DAILY [facility] Last Admin: 03/29/17 09:59 Dose: 40 mg Rosuvastatin Calcium (Crestor) 10 mg PO HS [facility] Last Admin: 03/28/17 21:32 Dose: 10 mg Timolol Maleate ([facility] 1 drop OU BID [facility] Last Admin: 03/29/17 09:38 Dose: 1 drop Vitamin B Complex/Vit C/Folic Acid (Nephro-Kevin) 1 tab PO 0800 [facility] Last Admin: 03/29/17 08:09 Dose: 1 tab - Labs Labs: 03/29/17 06:45 03/29/17 06:45 PT 12.3 SECONDS (9.7-12.2) H 02/18/17 05:30 INR 1.1 02/18/17 05:30 APTT 30 SECONDS (21-34) 02/18/17 05:30 Attending/Attestation - Attestation I have personally seen and examined this patient.: Yes I have fully participated in the care of the patient.: Yes I have reviewed all pertinent clinical information, including history, physical exam and plan: Yes Notes (Text): 03/29/17 13:27 Agree with resident note and plan of care
[2017-03-28] MEDS ORDERED: Dextrose 50% SYRINGE Inj (50 ml) IV STA (16:25)
--- NOTE | 2017-03-28 19:49 | CP.PCM.PN ---
Subjective - Date & Time of Evaluation Date of Evaluation: 03/28/17 Time of Evaluation: 18:20 - Subjective Subjective: the patient seen and examined. Status post hemodialysis Status post thoracentesis No shortness of breath Saturation 100% Off BiPAP Objective - Vital Signs/Intake and Output Vital Signs (last 24 hours): Temp Pulse Resp BP Pulse Ox 98.2 F 82 19 128/54 L 100 03/28/17 16:00 03/28/17 19:03 03/28/17 19:03 03/28/17 19:03 03/28/17 19:03 Intake and Output: 03/28/17 03/29/17 18:59 05:59 Intake Total 590 Output Total 0 0 Balance 590 0 - Medications Medications: Current Medications Acetaminophen (Tylenol 325mg Tab) 650 mg PO Q6 PRN PRN Reason: Pain, moderate (4-7) Last Admin: 03/28/17 13:21 Dose: 650 mg Brimonidine Tartrate (Alphagan 0.2% Opht) 1 ml OU TID [facility] Last Admin: 03/28/17 19:24 Dose: 1 drop Collagenase (Santyl) 0 gm TOP DAILY [facility] Last Admin: 03/28/17 08:30 Dose: 1 applic Dextrose (Dextrose 50% Inj) 0 ml IV STAT PRN; Protocol PRN Reason: Hyglycemia Protocol Dextrose (Glutose 15) 0 gm PO ONCE PRN; Protocol PRN Reason: Hypoglycemia Protocol Epoetin Maxwell (Procrit) 10,000 unit IV TTS [facility] Last Admin: 03/28/17 10:33 Dose: 10,000 unit Ergocalciferol (Drisdol 50,000 Intl Units Cap) 1 cap PO Q7D [facility] Last Admin: 03/24/17 00:47 Dose: 1 cap Glucagon (Glucagen Diagnostic Kit) 0 mg IM STAT PRN; Protocol PRN Reason: Hypoglycemia Protocol Heparin Sodium (Porcine) (Heparin) 5,000 units SC Q12 [facility] Last Admin: 03/28/17 11:00 Dose: 5,000 units Vancomycin/Sodium Chloride (Vancomycin 1 Gm/Ns 200 Ml) 1 gm in 200 mls @ 133.333 mls/hr IVPB TTS [facility] Last Admin: 03/28/17 13:26 Dose: 133.333 mls/hr Insulin Glargine (Lantus) 25 unit SC HS [facility] Last Admin: 03/16/17 22:27 Dose: Not Given Insulin Human Regular (Novolin R) 0 unit SC ACHS [facility] PRN Reason: Protocol Last Admin: 03/28/17 16:30 Dose: Not Given Latanoprost (Xalatan Opht) 0.02 ml OU HS [facility] Last Admin: 03/27/17 21:22 Dose: 0.02 ml Lisinopril (Zestril) 20 mg PO DAILY [facility] Last Admin: 03/28/17 11:00 Dose: Not Given Pantoprazole Sodium (Protonix Ec Tab) 40 mg PO DAILY [facility] Last Admin: 03/28/17 11:00 Dose: 40 mg Rosuvastatin Calcium (Crestor) 10 mg PO HS [facility] Last Admin: 03/27/17 21:20 Dose: 10 mg Timolol Maleate (Timoptic 0.5% Oph Soln) 1 drop OU BID [facility] Last Admin: 03/28/17 19:23 Dose: 1 drop Vitamin B Complex/Vit C/Folic Acid (Nephro-Alonzo) 1 tab PO 0800 [facility] Last Admin: 03/28/17 08:47 Dose: 1 tab - Labs Labs: 03/28/17 10:10 03/28/17 10:10 PT 12.3 SECONDS (9.7-12.2) H 02/18/17 05:30 INR 1.1 02/18/17 05:30 APTT 30 SECONDS (21-34) 02/18/17 05:30 - Head Exam Head Exam: ATRAUMATIC, NORMOCEPHALIC - Eye Exam Eye Exam: Normal appearance - ENT Exam ENT Exam: Mucous Membranes Moist - Neck Exam Neck Exam: Normal Inspection - Respiratory Exam Respiratory Exam: Decreased Breath Sounds - Cardiovascular Exam Cardiovascular Exam: REGULAR RHYTHM - GI/Abdominal Exam GI & Abdominal Exam: Soft, Normal Bowel Sounds - Extremities Exam Extremities Exam: Pedal Edema Assessment and Plan (1) Pleural effusion Assessment & Plan: status post thoracentesis Continue hemodialysis Continue antibiotics Status: Chronic (2) Change in mental status Status: Acute (3) Clostridium difficile colitis Status: Acute (4) End stage renal disease on dialysis Status: Acute
[2017-03-28] MEDS: Latanoprost 2.5 ml Opht Soln OU SCH (21:32)
--- NOTE | 2017-03-28 22:12 | CP.CCUPN ---
CCU Subjective - Physician Review Events Since Last Encounter (Free Text): 03/28/17 22:11 71 F w/ PMHx of ESRD on HD, CHF, HTN, DM2, PVD who was admitted to [facility] 02/18/17 for altered mental status and has been in the hospital with multiple complications arising such as pleural effusion, non-healing foot ulcer and decreased appetite. Today, patient was found to be in respiratory distress and PICC vascular access was compromised. According to medical scheduler on floor patient desaturated to 80%s and put on 5l NC. Patient's oxygen increased to low 90%s, but was using accessory muscles to breath. Patient was transferred to the ICU for closer monitoring. PMD: Dr. Myrick PMHx: ESRD on HD (//Thu), CHF, HTN, DM2, PVD, anemia of chronic disease , glaucoma, LBP, depression PSH: AV fistula, appendectomy, lower extremity artherectomy Allergies: NKDA SH: Lives with her in [place]. Per , no smoking, EtOH or drug abuse. patient had a thoracentesis. Critical Care Time Spent (in minutes): 45 CCU Objective - Vital Signs / Intake & Output Vital Signs (Last 4 hours): Vital Signs Temp Pulse Resp BP Pulse Ox 03/28/17 20:34 79 19 123/58 L 100 03/28/17 20:31 80 19 123/58 L 100 03/28/17 20:04 80 17 123/58 L 100 03/28/17 20:00 98.8 F 80 22 100 03/28/17 19:03 82 19 128/54 L 100 03/28/17 19:00 81 14 100 Intake and Output (Last 8hrs): Intake & Output 03/28/17 03/28/17 03/28/17 06:59 14:59 22:59 Intake Total 190 430 160 Output Total 1 0 0 Balance 189 430 160 Weight 133 lb 3.2 oz Intake: Intake, IV Amount 100 Right PICC 100 Oral 190 330 160 Output: Urine/Stool Mix 1 Emesis 0 0 Other: # Voids Urine, Voided 0 0 # Bowel Movements 0 0 - Physical Exam Narrative Physical Exam (Free Text): 03/28/17 22:11 Vital signs reviewed No neck vein distention noted Chest good air entry bilaterally, no wheezing or rales noted CVS regular heart sound, no murmur noted Abdomen soft, nontender. Extremities no pedal edema VERIFICATION ENGINEER alert awake oriented -3, no functional neurological deficit Head: Positive for: Atraumatic, Normocephalic Extroacular Muscles: Positive for: EOMI Conjunctiva: Positive for: Normal Mouth: Positive for: Dry Respiratory/Chest: Positive for: Decreased Breath Sounds, Rales Cardiovascular: Positive for: Normal S1, S2 Abdomen: Negative for: Tenderness, Distention Upper Extremity: Positive for: Edema Lower Extremity: Positive for: Edema, Other (Majority of left plantar aspect of foot is necrotic. dressing clean dry and intact) Skin: Positive for: Warm Psychiatric: Positive for: Alert. Negative for: Oriented x 3 - Medications Active Medications: Active Medications Generic Name Dose Route Start Last Admin Trade Name Freq PRN Reason Stop Dose Admin Acetaminophen 650 mg 03/27/17 10:47 03/28/17 13:21 Tylenol 325mg Tab PO 650 mg Q6 PRN Administration Pain, moderate (4-7) Brimonidine Tartrate 1 ml 02/20/17 19:00 03/28/17 19:24 Alphagan 0.2% Opht OU 1 drop TID [facility] Administration Collagenase 0 gm 03/18/17 10:00 03/28/17 08:30 Santyl TOP 1 applic DAILY [facility] Administration Dextrose 0 ml 02/27/17 12:44 Dextrose 50% Inj IV STAT PRN Hyglycemia Protocol Protocol Dextrose 0 gm 02/27/17 12:44 Glutose 15 PO ONCE PRN Hypoglycemia Protocol Protocol Epoetin Maxwell 10,000 unit 03/07/17 11:30 03/28/17 10:33 Procrit IV 10,000 unit TTS [facility] Administration Ergocalciferol 1 cap 03/24/17 00:15 03/24/17 00:47 Drisdol 50,000 Intl Units Cap PO 1 cap Q7D [facility] Administration Glucagon 0 mg 02/27/17 12:44 Glucagen Diagnostic Kit IM STAT PRN Hypoglycemia Protocol Protocol Heparin Sodium (Porcine) 5,000 units 03/27/17 12:30 03/28/17 21:32 Heparin SC 5,000 units Q12 [facility] Administration Vancomycin/Sodium Chloride 1 gm in 200 mls @ 133.333 mls/hr 03/28/17 10:00 13:26 Vancomycin 1 Gm/Ns 200 Ml IVPB 133.333 mls/hr TTS [facility] Administration Insulin Glargine 25 unit 03/06/17 17:19 03/16/17 22:27 Lantus SC Not Given HS [facility] Insulin Human Regular 0 unit 03/18/17 16:30 03/28/17 21:32 Novolin R SC Not Given ACHS [facility] Protocol Latanoprost 0.02 ml 02/20/17 22:00 03/28/17 21:32 Xalatan Opht OU 0.02 ml HS [facility] Administration Lisinopril 20 mg 03/19/17 10:00 03/28/17 11:00 Zestril PO Not Given DAILY [facility] Pantoprazole Sodium 40 mg 03/28/17 10:00 03/28/17 11:00 Protonix Ec Tab PO 40 mg DAILY [facility] Administration Rosuvastatin Calcium 10 mg 02/18/17 22:00 03/28/17 21:32 Crestor PO 10 mg HS [facility] Administration Timolol Maleate 1 drop 02/20/17 19:00 03/28/17 19:23 Timoptic 0.5% Ophth Soln OU 1 drop BID [facility] Administration Vitamin B Complex/Vit C/Folic Acid 1 tab 03/16/17 08:00 03/28/17 08:47 Nephro-Alonzo PO 1 tab 0800 [facility] Administration - Patient Studies Lab Studies: Microbiology Studies 03/27/17 10:30 Body Fluid Culture - Preliminary Pleural Fluid NO GROWTH AFTER 24 HOURS Fungal Culture - Preliminary 03/25/17 18:00 Blood Culture - Preliminary Blood NO GROWTH AFTER 3 DAYS 03/25/17 18:00 Blood Culture - Preliminary Blood NO GROWTH AFTER 3 DAYS 03/27/17 08:00 Gram Stain - Final Foot - Left Lab Studies 03/28/17 03/28/17 03/28/17 Range/Units 21:15 17:05 16:22 WBC (4.8-10.8) K/uL RBC (3.80-5.20) Mil/uL Hgb (11.0-16.0) g/dL Hct (34.0-47.0) % MCV (81.0-99.0) fL MCH (27.0-31.0) pg MCHC (33.0-37.0) g/dL RDW (11.5-14.5) % Plt Count (130-400) K/uL MPV (7.2-11.7) fL Neut % (Auto) (50.0-75.0) % Lymph % (Auto) (20.0-40.0) % Mitchell % (Auto) (0.0-10.0) % Eos % (Auto) (0.0-4.0) % Baso % (Auto) (0.0-2.0) % Neut # (1.8-7.0) K/uL Lymph # (1.0-4.3) K/uL Mitchell # (0.0-0.8) K/uL Eos # (0.0-0.7) K/uL Baso # (0.0-0.2) K/uL Neutrophils % (Manual) (50-75) % Lymphocytes % (Manual) (20-40) % Monocytes % (Manual) (0-10) % Platelet Estimate (NORMAL) Polychromasia Hypochromasia (manual) Anisocytosis (manual) Sodium (132-148) mmol/L Potassium (3.6-5.2) mmol/L Chloride (98-107) mmol/L Carbon Dioxide (22-30) mmol/L Anion Gap (10-20) BUN (7-17) mg/dL Creatinine (0.7-1.2) mg/dL Est GFR ( Amer) Est GFR (Non-Af Amer) POC Glucose (mg/dL) 199 H 182 H 36 L* (65-110) mg/dL Random Glucose (65-105) mg/dL Calcium (8.6-10.4) mg/dl Phosphorus (2.5-4.5) mg/dL Magnesium (1.6-2.3) mg/dL Total Bilirubin (0.2-1.3) mg/dL AST (14-36) U/L ALT (9-52) U/L Alkaline Phosphatase (38-126) U/L Total Protein (6.3-8.3) g/dL Albumin (3.5-5.0) g/dL Globulin (2.2-3.9) gm/dL Albumin/Globulin Ratio (1.0-2.1) 03/28/17 03/28/17 03/28/17 Range/Units 11:00 10:10 10:10 WBC 17.0 H (4.8-10.8) K/uL RBC 2.61 L (3.80-5.20) Mil/uL Hgb 7.9 L (11.0-16.0) g/dL Hct 25.8 L (34.0-47.0) % MCV 98.8 (81.0-99.0) fL MCH 30.2 (27.0-31.0) pg MCHC 30.6 L (33.0-37.0) g/dL RDW 23.2 H (11.5-14.5) % Plt Count 324 (130-400) K/uL MPV 8.4 (7.2-11.7) fL Neut % (Auto) 91.5 H (50.0-75.0) % Lymph % (Auto) 4.7 L (20.0-40.0) % Mitchell % (Auto) 3.3 (0.0-10.0) % Eos % (Auto) 0.1 (0.0-4.0) % Baso % (Auto) 0.4 (0.0-2.0) % Neut # 15.6 H (1.8-7.0) K/uL Lymph # 0.8 L (1.0-4.3) K/uL Mitchell # 0.6 (0.0-0.8) K/uL Eos # 0.0 (0.0-0.7) K/uL Baso # 0.1 (0.0-0.2) K/uL Neutrophils % (Manual) 93 H (50-75) % Lymphocytes % (Manual) 3 L (20-40) % Monocytes % (Manual) 4 (0-10) % Platelet Estimate Normal (NORMAL) Polychromasia Slight Hypochromasia (manual) Slight Anisocytosis (manual) Moderate Sodium 128 L (132-148) mmol/L Potassium 3.5 L (3.6-5.2) mmol/L Chloride 95 L (98-107) mmol/L Carbon Dioxide 23 (22-30) mmol/L Anion Gap 14 (10-20) BUN 30 H (7-17) mg/dL Creatinine 1.6 H (0.7-1.2) mg/dL Est GFR ( Amer) 38 Est GFR (Non-Af Amer) 32 POC Glucose (mg/dL) 190 H (65-110) mg/dL Random Glucose 354 H (65-105) mg/dL Calcium 7.4 L (8.6-10.4) mg/dl Phosphorus 3.1 (2.5-4.5) mg/dL Magnesium 2.0 (1.6-2.3) mg/dL Total Bilirubin 0.5 (0.2-1.3) mg/dL AST 19 (14-36) U/L ALT 38 (9-52) U/L Alkaline Phosphatase 190 H (38-126) U/L Total Protein 5.3 L (6.3-8.3) g/dL Albumin 2.2 L (3.5-5.0) g/dL Globulin 3.1 (2.2-3.9) gm/dL Albumin/Globulin Ratio 0.7 L (1.0-2.1) 03/28/17 Range/Units 08:20 WBC (4.8-10.8) K/uL RBC (3.80-5.20) Mil/uL Hgb (11.0-16.0) g/dL Hct (34.0-47.0) % MCV (81.0-99.0) fL MCH (27.0-31.0) pg MCHC (33.0-37.0) g/dL RDW (11.5-14.5) % Plt Count (130-400) K/uL MPV (7.2-11.7) fL Neut % (Auto) (50.0-75.0) % Lymph % (Auto) (20.0-40.0) % Mitchell % (Auto) (0.0-10.0) % Eos % (Auto) (0.0-4.0) % Baso % (Auto) (0.0-2.0) % Neut # (1.8-7.0) K/uL Lymph # (1.0-4.3) K/uL Mitchell # (0.0-0.8) K/uL Eos # (0.0-0.7) K/uL Baso # (0.0-0.2) K/uL Neutrophils % (Manual) (50-75) % Lymphocytes % (Manual) (20-40) % Monocytes % (Manual) (0-10) % Platelet Estimate (NORMAL) Polychromasia Hypochromasia (manual) Anisocytosis (manual) Sodium (132-148) mmol/L Potassium (3.6-5.2) mmol/L Chloride (98-107) mmol/L Carbon Dioxide (22-30) mmol/L Anion Gap (10-20) BUN (7-17) mg/dL Creatinine (0.7-1.2) mg/dL Est GFR ( Amer) Est GFR (Non-Af Amer) POC Glucose (mg/dL) 336 H (65-110) mg/dL Random Glucose (65-105) mg/dL Calcium (8.6-10.4) mg/dl Phosphorus (2.5-4.5) mg/dL Magnesium (1.6-2.3) mg/dL Total Bilirubin (0.2-1.3) mg/dL AST (14-36) U/L ALT (9-52) U/L Alkaline Phosphatase (38-126) U/L Total Protein (6.3-8.3) g/dL Albumin (3.5-5.0) g/dL Globulin (2.2-3.9) gm/dL Albumin/Globulin Ratio (1.0-2.1) Laboratory Results - last 24 hr 03/28/17 03/28/17 03/28/17 08:20 10:10 10:10 WBC 17.0 H RBC 2.61 L Hgb 7.9 L Hct 25.8 L MCV 98.8 MCH 30.2 MCHC 30.6 L RDW 23.2 H Plt Count 324 MPV 8.4 Neut % (Auto) 91.5 H Lymph % (Auto) 4.7 L Mitchell % (Auto) 3.3 Eos % (Auto) 0.1 Baso % (Auto) 0.4 Neut # 15.6 H Lymph # 0.8 L Mitchell # 0.6 Eos # 0.0 Baso # 0.1 Neutrophils % (Manual) 93 H Lymphocytes % (Manual) 3 L Monocytes % (Manual) 4 Platelet Estimate Normal Polychromasia Slight Hypochromasia (manual) Slight Anisocytosis (manual) Moderate Sodium 128 L Potassium 3.5 L Chloride 95 L Carbon Dioxide 23 Anion Gap 14 BUN 30 H Creatinine 1.6 H Est GFR ( Amer) 38 Est GFR (Non-Af Amer) 32 POC Glucose (mg/dL) 336 H Random Glucose 354 H Calcium 7.4 L Phosphorus 3.1 Magnesium 2.0 Total Bilirubin 0.5 AST 19 ALT 38 Alkaline Phosphatase 190 H Total Protein 5.3 L Albumin 2.2 L Globulin 3.1 Albumin/Globulin Ratio 0.7 L 03/28/17 03/28/17 03/28/17 11:00 16:22 17:05 WBC RBC Hgb Hct MCV MCH MCHC RDW Plt Count MPV Neut % (Auto) Lymph % (Auto) Mitchell % (Auto) Eos % (Auto) Baso % (Auto) Neut # Lymph # Mitchell # Eos # Baso # Neutrophils % (Manual) Lymphocytes % (Manual) Monocytes % (Manual) Platelet Estimate Polychromasia Hypochromasia (manual) Anisocytosis (manual) Sodium Potassium Chloride Carbon Dioxide Anion Gap BUN Creatinine Est GFR ( Amer) Est GFR (Non-Af Amer) POC Glucose (mg/dL) 190 H 36 L* 182 H Random Glucose Calcium Phosphorus Magnesium Total Bilirubin AST ALT Alkaline Phosphatase Total Protein Albumin Globulin Albumin/Globulin Ratio 03/28/17 21:15 WBC RBC Hgb Hct MCV MCH MCHC RDW Plt Count MPV Neut % (Auto) Lymph % (Auto) Mitchell % (Auto) Eos % (Auto) Baso % (Auto) Neut # Lymph # Mitchell # Eos # Baso # Neutrophils % (Manual) Lymphocytes % (Manual) Monocytes % (Manual) Platelet Estimate Polychromasia Hypochromasia (manual) Anisocytosis (manual) Sodium Potassium Chloride Carbon Dioxide Anion Gap BUN Creatinine Est GFR ( Amer) Est GFR (Non-Af Amer) POC Glucose (mg/dL) 199 H Random Glucose Calcium Phosphorus Magnesium Total Bilirubin AST ALT Alkaline Phosphatase Total Protein Albumin Globulin Albumin/Globulin Ratio Fingerstick Blood Sugar Results: 182 Review of Systems - Review of Systems All systems: reviewed and no additional remarkable complaints except Critical Care Progress Note - Nutrition Nutrition: Nutrition Category Date Time Status Soft [Dysphagia/Modified Consistency Diet] [DIET] Diets 03/18/17 Lunch Active Assessment/Plan (1) Change in mental status Current Visit: Yes Status: Acute (2) Elevated WBC count Current Visit: Yes Status: Acute (3) End stage renal disease on dialysis Assessment and plan: dialysis is done today. Comfortable. Current Visit: Yes Status: Acute Comment: Continue hemodialysis
[2017-03-29 06:57] LABS: BASO % 0.3 % (0.0-2.0); EOS % 0.1 % (0.0-4.0); HEMATOCRIT 28.4 % (34.0-47.0); LYMPH # 1.2 K/uL (1.0-4.3); LYMPH % 7.6 % (20.0-40.0); MEAN CORPUSCULAR HEMOGLOBIN 29.7 pg (27.0-31.0); MEAN CORPUSCULAR HGB CONC 29.3 g/dL (33.0-37.0); MEAN PLATELET VOLUME 9.2 fL (7.2-11.7); MONO % 6.2 % (0.0-10.0); NRBC % 0.2 % (0.0-2.0); PLATELET COUNT 274 K/uL (130-400); RED CELL DISTRIBUTION WIDTH 23.8 % (11.5-14.5); WHITE BLOOD COUNT 16.1 K/uL (4.8-10.8)
[2017-03-29 07:13] LABS: POTASSIUM 4.3 mmol/L (3.6-5.2)
[2017-03-29 07:15] LABS: BILIRUBIN,TOTAL 0.7 mg/dL (0.2-1.3)
[2017-03-29 07:16] LABS: ALB/GLOB RATIO 1.1 (1.0-2.1); CALCIUM 7.1 mg/dl (8.6-10.4); MAGNESIUM 1.9 mg/dL (1.6-2.3); PHOSPHOROUS 3.4 mg/dL (2.5-4.5); TOTAL PROTEIN 4.6 g/dL (6.3-8.3)
[2017-03-29 07:36] LABS: MEAN CELL VOLUME 101.4 fL (81.0-99.0)
[2017-03-29] MEDS: (Novolin R) Insulin Human Regular 100 units/ml vial SC SCH ×4 (08:08→21:26)
[2017-03-29] MEDS: Multivitamin Vitamin B Complex (Nephro-Vite) Tab PO SCH (08:09)
[2017-03-29 08:34] LABS: TOTAL CELLS COUNTED 100
[2017-03-29 08:35] LABS: NEUTROPHIL 88 % (50-75)
--- NOTE | 2017-03-29 09:01 | CP.PCM.PN ---
Subjective - Date & Time of Evaluation Date of Evaluation: 03/28/17 Time of Evaluation: 14:00 - Subjective Subjective: SEEN ON RENAL F/U IN ICU SEEN ON HD CASE D/W ON BED SIDE ON HD T T S Objective - Vital Signs/Intake and Output Vital Signs (last 24 hours): Temp Pulse Resp BP Pulse Ox 98.5 F 88 22 133/50 L 100 03/29/17 03:00 03/29/17 06:00 03/29/17 06:00 03/29/17 05:03 03/29/17 06:00 Intake and Output: 03/29/17 03/29/17 06:59 18:59 Intake Total Balance - Medications Medications: Current Medications Acetaminophen (Tylenol 325mg Tab) 650 mg PO Q6 PRN PRN Reason: Pain, moderate (4-7) Last Admin: 03/28/17 13:21 Dose: 650 mg Brimonidine Tartrate (Alphagan 0.2% Opht) 1 ml OU TID [facility] Last Admin: 03/28/17 19:24 Dose: 1 drop Collagenase (Santyl) 0 gm TOP DAILY [facility] Last Admin: 03/28/17 08:30 Dose: 1 applic Dextrose (Dextrose 50% Inj) 0 ml IV STAT PRN; Protocol PRN Reason: Hyglycemia Protocol Dextrose (Glutose 15) 0 gm PO ONCE PRN; Protocol PRN Reason: Hypoglycemia Protocol Epoetin Maxwell (Procrit) 10,000 unit IV TTS [facility] Last Admin: 03/28/17 10:33 Dose: 10,000 unit Ergocalciferol (Drisdol 50,000 Intl Units Cap) 1 cap PO Q7D [facility] Last Admin: 03/24/17 00:47 Dose: 1 cap Glucagon (Glucagen Diagnostic Kit) 0 mg IM STAT PRN; Protocol PRN Reason: Hypoglycemia Protocol Heparin Sodium (Porcine) (Heparin) 5,000 units SC Q12 [facility] Last Admin: 03/28/17 21:32 Dose: 5,000 units Vancomycin/Sodium Chloride (Vancomycin 1 Gm/Ns 200 Ml) 1 gm in 200 mls @ 133.333 mls/hr IVPB TTS [facility] Last Admin: 03/28/17 13:26 Dose: 133.333 mls/hr Insulin Glargine (Lantus) 25 unit SC HS [facility] Last Admin: 10/23/17 22:27 Dose: Not Given Insulin Human Regular (Novolin R) 0 unit SC ACHS [facility] PRN Reason: Protocol Last Admin: 03/29/17 08:08 Dose: 10 unit Latanoprost (Xalatan Opht) 0.02 ml OU HS [facility] Last Admin: 03/28/17 21:32 Dose: 0.02 ml Lisinopril (Zestril) 20 mg PO DAILY [facility] Last Admin: 03/28/17 11:00 Dose: Not Given Pantoprazole Sodium (Protonix Ec Tab) 40 mg PO DAILY [facility] Last Admin: 03/28/17 11:00 Dose: 40 mg Rosuvastatin Calcium (Crestor) 10 mg PO HS [facility] Last Admin: 03/28/17 21:32 Dose: 10 mg Timolol Maleate (Timoptic 0.5% Oph Soln) 1 drop OU BID [facility] Last Admin: 03/28/17 19:23 Dose: 1 drop Vitamin B Complex/Vit C/Folic Acid (Nephro-Alonzo) 1 tab PO 0800 [facility] Last Admin: 03/29/17 08:09 Dose: 1 tab - Labs Labs: 03/29/17 06:45 03/29/17 06:45 PT 12.3 SECONDS (9.7-12.2) H 02/18/17 05:30 INR 1.1 02/18/17 05:30 APTT 30 SECONDS (21-34) 02/18/17 05:30 Assessment and Plan - Assessment and Plan (Free Text) Assessment: ESRD ON HD TTS .. TO BE C/O ANEMIA OF CKD .. R/O OTHER ETIOLOGIES .. ON EPO 10.000 + FERLICIT 125 MG ON HD .. WILL WATCH H/H VERY CLOSELY ELECTROLYTES ABNORMALITIES .. OK NOW MULTIPLE CO MORBIDITIES P : C/O CURRENT HD C/O PRESENT SUPPORTIVE CARE
[2017-03-29] MEDS: Brimonidine 0.2% Opth Sol (5ml) OU SCH ×3 (09:39→17:12)
[2017-03-29] MEDS: Collagenase 250 Units/gm Ointment(30 gm) TOP SCH (09:59)
[2017-03-29] MEDS: Pantoprazole 40 mg EC Tab PO SCH (09:59)
--- NOTE | 2017-03-29 10:00 | CP.PCM.PN ---
<Viviane Lynn - Last Filed: 03/29/17 14:07> Subjective - Date & Time of Evaluation Date of Evaluation: 03/29/17 Time of Evaluation: 09:33 - Subjective Subjective: PGY 2 Medicine Note- Dr. Myrick's service Pt seen and examined in no apparent acute distress. Patient does not always acknowledge when spoken to. She had some pain in her left heel. She did not respond to a review of systems at this time. Objective - Vital Signs/Intake and Output Vital Signs (last 24 hours): Temp Pulse Resp BP Pulse Ox 98.5 F 88 22 133/50 L 100 03/29/17 03:00 03/29/17 06:00 03/29/17 06:00 03/29/17 05:03 03/29/17 06:00 Intake and Output: 03/29/17 03/29/17 06:59 18:59 Intake Total Balance - Medications Medications: Current Medications Acetaminophen (Tylenol 325mg Tab) 650 mg PO Q6 PRN PRN Reason: Pain, moderate (4-7) Last Admin: 03/28/17 13:21 Dose: 650 mg Brimonidine Tartrate (Alphagan 0.2% Opht) 1 ml OU TID [facility] Last Admin: 03/29/17 09:39 Dose: 1 drop Collagenase (Santyl) 0 gm TOP DAILY [facility] Last Admin: 03/28/17 08:30 Dose: 1 applic Dextrose (Dextrose 50% Inj) 0 ml IV STAT PRN; Protocol PRN Reason: Hyglycemia Protocol Dextrose (Glutose 15) 0 gm PO ONCE PRN; Protocol PRN Reason: Hypoglycemia Protocol Epoetin Maxwell (Procrit) 10,000 unit IV TTS [facility] Last Admin: 03/28/17 10:33 Dose: 10,000 unit Ergocalciferol (Drisdol 50,000 Intl Units Cap) 1 cap PO Q7D [facility] Last Admin: 03/24/17 00:47 Dose: 1 cap Glucagon (Glucagen Diagnostic Kit) 0 mg IM STAT PRN; Protocol PRN Reason: Hypoglycemia Protocol Heparin Sodium (Porcine) (Heparin) 5,000 units SC Q12 [facility] Last Admin: 03/29/17 09:41 Dose: 5,000 units Vancomycin/Sodium Chloride (Vancomycin 1 Gm/Ns 200 Ml) 1 gm in 200 mls @ 133.333 mls/hr IVPB TTS [facility] Last Admin: 03/28/17 13:26 Dose: 133.333 mls/hr Insulin Glargine (Lantus) 25 unit SC HS [facility] Last Admin: 03/16/17 22:27 Dose: Not Given Insulin Human Regular (Novolin R) 0 unit SC ACHS [facility] PRN Reason: Protocol Last Admin: 03/29/17 08:08 Dose: 10 unit Latanoprost (Xalatan Opht) 0.02 ml OU HS [facility] Last Admin: 03/28/17 21:32 Dose: 0.02 ml Lisinopril (Zestril) 20 mg PO DAILY [facility] Last Admin: 03/28/17 11:00 Dose: Not Given Pantoprazole Sodium (Protonix Ec Tab) 40 mg PO DAILY [facility] Last Admin: 03/28/17 11:00 Dose: 40 mg Rosuvastatin Calcium (Crestor) 10 mg PO HS [facility] Last Admin: 03/28/17 21:32 Dose: 10 mg Timolol [facility] 1 drop OU BID [facility] Last Admin: 03/29/17 09:38 Dose: 1 drop Vitamin B Complex/Vit C/Folic Acid (Nephro-Kevin) 1 tab PO 0800 [facility] Last Admin: 03/29/17 08:09 Dose: 1 tab - Labs Labs: 03/29/17 06:45 03/29/17 06:45 PT 12.3 SECONDS (9.7-12.2) H 02/18/17 05:30 INR 1.1 02/18/17 05:30 APTT 30 SECONDS (21-34) 02/18/17 05:30 - Constitutional Appears: Non-toxic, No Acute Distress, Chronically Ill - Head Exam Head Exam: ATRAUMATIC, NORMAL INSPECTION, NORMOCEPHALIC - Eye Exam Eye Exam: EOMI, Normal appearance - ENT Exam ENT Exam: Mucous Membranes Moist - Neck Exam Neck Exam: Full ROM - Respiratory Exam Respiratory Exam: NORMAL BREATHING PATTERN - Cardiovascular Exam Cardiovascular Exam: +S1, +S2 - GI/Abdominal Exam GI & Abdominal Exam: Soft, Normal Bowel Sounds - Extremities Exam Extremities Exam: Full ROM Additional comments: necrotic calcaneal surface extensive into the medial aspect of the foot; dressing noted , diminished dorsalis pedis pulse in left LE, right upper extremity swelling - Back Exam Back Exam: Full ROM - Neurological Exam Neurological Exam: Awake - Psychiatric Exam Psychiatric exam: Flat Affect - Skin Skin Exam: Dry. absent: Normal Color Assessment and Plan - Assessment and Plan (Free Text) Assessment: Intermittent Altered Mental Status -likely secondary to poor glycemic control - Neurology on board (Dr. Aguirre) - CT head negative for acute infarction - Discontinued all pain medications, tyelnol prn Cardiac Comorbidties -CHF, HTN. PVD - Echo showed 61% LVEF 03/09/17 - Vascular surgery on board (Dr. Broussard) for PVD - Lisonopril 20mg PO QD - Crestor 10 mg PO HS - R femoral line placed in ICU has been removed Non-healing left heel pressure ulcer -previously VRE positive - Leukocytosis - VRE (left foot ulcer) and C. diff positive on admission, currently resolved - Infectious Disease on board (Dr. Wellington) - Podiatry on board (Dr. Avery) for left foot diabetic ulcer - Dr. Myrick, primary attending spoke at great length with regarding the need for surgical intervention. The of the patient is now agreeable for measures to be taken. This will be discussed with the surgical team. F/U recommendations. - Tylenol prn Dyspnea - Patient has had prior episodes of respiratory distress in the past secondary to effusion. - S/P thoracentesis on 03/27: 900 cc of clear fluid removed from left lung - Most recent CXR 03/27: Decreased left pleural effusion. No pneumothorax. Stable small right pleural effusion. - O2 Sat of 100% on NC 5 L - BiPAP off ESRD on hemodialysis - Pt undergoes hemodialysis //Thu, will dialyze daily to resolve altered mentation - Multiple electrolyte abnormalities throughout this admission, monitor CMPs, magnesium and phosphorous daily - PICC line inserted by IR 03/23/17 now functional, R femoral line removed - Permacath removed by surgery - Ergocalcierol 1 capsule PO Q7D - Procrit - Vancomycin 1gram IVPB 3 times weeks post dialysis Type 2 Diabetes -poorly controlled - Accuchecks ACHS - Regular Insulin high dose protocol for coverahe - Lantus 25u SC HS - A1c of 8.9 02/18/17 Failure to thrive - Hx of dysphagia - GI consult on board (Al[place]ino) - As of 03/19/17 , GI did not recommend PEG placement due to patient's significant medical comorbidities - Soft diet - C diff neg (02/28) Anemia of chronic disease - Hgb stable. Cont to monitor - Procrit 10,000U IV on dialysis days - Ferrlecit 125mg IVPB TTS Peripheral vascular Disease -Low ext arterial duplex (02/04/17) -occlusion R post tib artery, 50-75% stenosis right mid popliteal & proximal anterior tib arteries -occlusion of left post tib artery, >75% stenosis left proximal ant tibial artery, 50-75% stenosis left distal SFA & proximal popliteal a. - Podiatry on board (Dr. Avery) for left foot diabetic ulcer - As mentioned above, Dr. Myrick, primary attending spoke at great length with regarding the need for surgical intervention. The of the patient is now agreeable for measures to be taken. Prophylactic Measure - Protonix 40mg PO daily - Heparin 5000 U SC Q12 - Nephro-kevin vitamins - SCDs Discussed with attending. Management and planning per Dr. Myrick <Benson Myrick Jr. - Last Filed: 04/04/17 14:17> Objective - Vital Signs/Intake and Output Vital Signs (last 24 hours): Temp Pulse Resp BP Pulse Ox 97.6 F 92 H 18 144/52 L 100 04/04/17 07:48 04/04/17 07:48 04/04/17 07:48 04/04/17 07:48 04/04/17 07:48 Intake and Output: 04/04/17 04/04/17 06:59 18:59 Intake Total 300 Balance 300 - Medications Medications: Current Medications Acetaminophen (Tylenol 325mg Tab) 650 mg PO Q6 PRN PRN Reason: Pain, moderate (4-7) Last Admin: 03/28/17 13:21 Dose: 650 mg Acetaminophen (Tylenol 325 Mg Supp) 325 mg ND Q6 PRN PRN Reason: Fever >100.4 F Last Admin: 03/31/17 09:36 Dose: 325 mg Brimonidine Tartrate (Alphagan 0.2% Opht) 1 ml OU TID [facility] Last Admin: 04/04/17 13:04 Dose: 1 drop Dextrose (Dextrose 50% Inj) 0 ml IV STAT PRN; Protocol PRN Reason: Hyglycemia Protocol Last Admin: 04/04/17 06:35 Dose: 50 ml Dextrose (Glutose 15) 0 gm PO ONCE PRN; Protocol PRN Reason: Hypoglycemia Protocol Last Admin: 04/01/17 21:54 Dose: 15 gm Ergocalciferol (Drisdol 50,000 Intl Units Cap) 1 cap PO Q7D [facility] Last Admin: 03/31/17 00:35 Dose: 1 cap Glucagon (Glucagen Diagnostic Kit) 0 mg IM STAT PRN; Protocol PRN Reason: Hypoglycemia Protocol Hydromorphone HCl (Dilaudid) 0.5 mg IVP Q4H PRN PRN Reason: Pain, severe (8-10) Last Admin: 04/04/17 11:27 Dose: 0.5 mg Dextrose/Sodium Chloride (Dextrose 5%/0.45% Ns 1000 Ml) 1,000 mls @ 50 mls/hr IV .Q20H [facility] Last Admin: 04/04/17 13:04 Dose: 50 mls/hr Insulin Detemir (Levemir) 14 unit SC BID@0800,2200 [facility] Last Admin: 04/04/17 08:26 Dose: Not Given Insulin Glargine (Lantus) 25 unit SC HS [facility] Last Admin: 03/16/17 22:27 Dose: Not Given Insulin Human Regular (Novolin R) 9 unit SC AC [facility] Last Admin: 04/04/17 12:00 Dose: Not Given Latanoprost (Xalatan Opht) 0.02 ml OU HS [facility] Last Admin: 04/03/17 21:09 Dose: 0.02 ml Lisinopril (Zestril) 20 mg PO DAILY [facility] Last Admin: 04/04/17 13:08 Dose: 20 mg Pantoprazole Sodium (Protonix Ec Tab) 40 mg PO DAILY [facility] Last Admin: 04/04/17 13:09 Dose: Not Given Timolol Maleate (Timoptic 0.5% Ophth Soln) 1 drop OU BID [facility] Last Admin: 04/04/17 09:00 Dose: Not Given Vitamin B Complex/Vit C/Folic Acid (Nephro-Kevin) 1 tab PO 0800 [facility] Last Admin: 04/04/17 13:07 Dose: Not Given - Labs Labs: 04/04/17 10:21 04/04/17 10:21 PT 12.0 SECONDS (9.7-12.2) 03/30/17 08:03 INR 1.1 03/30/17 08:03 APTT 26 SECONDS (21-34) 03/30/17 08:03 Attending/Attestation - Attestation I have personally seen and examined this patient.: Yes I have fully participated in the care of the patient.: Yes I have reviewed all pertinent clinical information, including history, physical exam and plan: Yes Notes (Text): 04/04/17 14:16 Agree with resident note and plan of care
--- NOTE | 2017-03-29 11:54 | CP.PCM.PN ---
Subjective - Date & Time of Evaluation Date of Evaluation: 03/29/17 Time of Evaluation: 08:00 - Subjective Subjective: seen at bedside remains confused discussed with - explained to him that foot will not heal Objective - Vital Signs/Intake and Output Vital Signs (last 24 hours): Temp Pulse Resp BP Pulse Ox 98.5 F 90 30 H 123/46 L 98 03/29/17 07:00 03/29/17 10:00 03/29/17 10:00 03/29/17 08:14 03/29/17 10:00 Intake and Output: 03/29/17 03/29/17 06:59 18:59 Intake Total Balance - Medications Medications: Current Medications Acetaminophen (Tylenol 325mg Tab) 650 mg PO Q6 PRN PRN Reason: Pain, moderate (4-7) Last Admin: 03/28/17 13:21 Dose: 650 mg Brimonidine Tartrate (Alphagan 0.2% Opht) 1 ml OU TID [facility] Last Admin: 03/29/17 09:39 Dose: 1 drop Collagenase (Santyl) 0 gm TOP DAILY [facility] Last Admin: 03/29/17 09:59 Dose: 1 applic Dextrose (Dextrose 50% Inj) 0 ml IV STAT PRN; Protocol PRN Reason: Hyglycemia Protocol Dextrose (Glutose 15) 0 gm PO ONCE PRN; Protocol PRN Reason: Hypoglycemia Protocol Epoetin Maxwell (Procrit) 10,000 unit IV TTS [facility] Last Admin: 03/28/17 10:33 Dose: 10,000 unit Ergocalciferol (Drisdol 50,000 Intl Units Cap) 1 cap PO Q7D [facility] Last Admin: 03/24/17 00:47 Dose: 1 cap Glucagon (Glucagen Diagnostic Kit) 0 mg IM STAT PRN; Protocol PRN Reason: Hypoglycemia Protocol Heparin Sodium (Porcine) (Heparin) 5,000 units SC Q12 [facility] Last Admin: 03/29/17 09:41 Dose: 5,000 units Vancomycin/Sodium Chloride (Vancomycin 1 Gm/Ns 200 Ml) 1 gm in 200 mls @ 133.333 mls/hr IVPB TTS [facility] Last Admin: 03/28/17 13:26 Dose: 133.333 mls/hr Insulin Glargine (Lantus) 25 unit SC HS [facility] Last Admin: 03/16/17 22:27 Dose: Not Given Insulin Human Regular (Novolin R) 0 unit SC ACHS [facility] PRN Reason: Protocol Last Admin: 03/29/17 08:08 Dose: 10 unit Latanoprost (Xalatan Opht) 0.02 ml OU HS [facility] Last Admin: 03/28/17 21:32 Dose: 0.02 ml Lisinopril (Zestril) 20 mg PO DAILY [facility] Last Admin: 03/29/17 10:03 Dose: 20 mg Pantoprazole Sodium (Protonix Ec Tab) 40 mg PO DAILY [facility] Last Admin: 03/29/17 09:59 Dose: 40 mg Rosuvastatin Calcium (Crestor) 10 mg PO HS [facility] Last Admin: 03/28/17 21:32 Dose: 10 mg Timolol Maleate (Timoptic 0.5% Oph Sol) 1 drop OU BID [facility] Last Admin: 03/29/17 09:38 Dose: 1 drop Vitamin B Complex/Vit C/Folic Acid (Nephro-Alonzo) 1 tab PO 0800 [facility] Last Admin: 03/29/17 08:09 Dose: 1 tab - Labs Labs: 03/29/17 06:45 03/29/17 06:45 PT 12.3 SECONDS (9.7-12.2) H 02/18/17 05:30 INR 1.1 02/18/17 05:30 APTT 30 SECONDS (21-34) 02/18/17 05:30 - Constitutional Appears: Non-toxic, Confused, Cachectic, Chronically Ill - Head Exam Head Exam: ATRAUMATIC, NORMOCEPHALIC - Eye Exam Eye Exam: PERRL - ENT Exam ENT Exam: Mucous Membranes Dry - Neck Exam Neck Exam: absent: Lymphadenopathy - Respiratory Exam Respiratory Exam: Decreased Breath Sounds - Cardiovascular Exam Cardiovascular Exam: REGULAR RHYTHM - GI/Abdominal Exam GI & Abdominal Exam: Distended, Soft - Rectal Exam Rectal Exam: Deferred - Exam Exam: NORMAL INSPECTION - Extremities Exam Extremities Exam: absent: Pedal Edema - Back Exam Back Exam: absent: CVA tenderness (L), CVA tenderness (R) - Neurological Exam Neurological Exam: Altered - Psychiatric Exam Psychiatric exam: Depressed - Skin Skin Exam: Dry Assessment and Plan (1) Change in mental status Status: Acute (2) End stage renal disease on dialysis Status: Acute (3) Heel ulcer Status: Acute (4) IDDM (insulin dependent diabetes mellitus) Status: Chronic
[2017-03-29 17:05] LABS: LDH PLEURAL FLUID 32 U/L
--- NOTE | 2017-03-29 17:30 | CP.PCM.PCO ---
Physician Communication Note - Physician Communication Note Physician Communication Note: OR tomorrow for BKA, NPO at midnight, hold heparin
[2017-03-29] MEDS: Latanoprost 2.5 ml Opht Soln OU SCH (21:26)
[2017-03-30] MEDS ORDERED: (Novolin R) Insulin Human Regular 100 units/ml vial SC ONE ×2 (03:25→11:30)
[2017-03-30] MEDS: (Novolin R) Insulin Human Regular 100 units/ml vial SC SCH ×5 (08:09→22:19)
[2017-03-30] MEDS: Multivitamin Vitamin B Complex (Nephro-Vite) Tab PO SCH (08:09)
[2017-03-30 08:17] LABS: BASO % 0.3 % (0.0-2.0); EOS % 0.1 % (0.0-4.0); HEMATOCRIT 26.2 % (34.0-47.0); LYMPH # 1.1 K/uL (1.0-4.3); LYMPH % 7.1 % (20.0-40.0); MEAN CELL VOLUME 101.1 fL (81.0-99.0); MEAN CORPUSCULAR HEMOGLOBIN 31.5 pg (27.0-31.0); MEAN CORPUSCULAR HGB CONC 31.2 g/dL (33.0-37.0); MEAN PLATELET VOLUME 8.6 fL (7.2-11.7); MONO # 1.2 K/uL (0.0-0.8); MONO % 7.7 % (0.0-10.0); PLATELET COUNT 330 K/uL (130-400); RED CELL DISTRIBUTION WIDTH 22.5 % (11.5-14.5); WHITE BLOOD COUNT 15.5 K/uL (4.8-10.8)
[2017-03-30 08:22] LABS: INR 1.1
[2017-03-30 08:55] LABS: POTASSIUM 4.6 mmol/L (3.6-5.2)
[2017-03-30 08:57] LABS: BILIRUBIN,TOTAL 0.6 mg/dL (0.2-1.3); TOTAL PROTEIN 4.5 g/dL (6.3-8.3)
[2017-03-30 08:58] LABS: CALCIUM 6.9 mg/dl (8.6-10.4); PHOSPHOROUS 3.7 mg/dL (2.5-4.5)
[2017-03-30 08:59] LABS: NEUTROPHIL 95 % (50-75); TOTAL CELLS COUNTED 100
[2017-03-30] MEDS: Pantoprazole 40 mg EC Tab PO SCH (10:00)
[2017-03-30] MEDS: Brimonidine 0.2% Opth Sol (5ml) OU SCH ×3 (10:00→18:00)
[2017-03-30] MEDS: Collagenase 250 Units/gm Ointment(30 gm) TOP SCH (10:00)
[2017-03-30] MEDS ORDERED: (Novolin R) Insulin Human Regular 100 units/ml vial IV ONE (10:38)
[2017-03-30 13:22] LABS: ABG ALLEN TEST POS; ARTERIAL BLOOD HGB O2 SAT 96.4 % (95.0-98.0); DRAW SITE RRA; HHB 0.7 % (0.0-5.0); METHEMOGLOBIN 0.9 % (0.0-3.0)
--- NOTE | 2017-03-30 14:11 | CP.PCM.PN ---
<Trevor Elkins - Last Filed: 03/30/17 14:11> Subjective - Date & Time of Evaluation Date of Evaluation: 03/30/17 Time of Evaluation: 14:09 - Subjective Subjective: PGY1 Note for Dr. Myrick HPI: Patient seen and examined at bedside. AAOx3. No changes at this time. ROS Unattainable. Family at bedside. OR today. Objective - Vital Signs/Intake and Output Vital Signs (last 24 hours): Temp Pulse Resp BP Pulse Ox 98.1 F 102 H 18 172/70 H 97 03/30/17 08:36 03/30/17 08:36 03/30/17 08:36 03/30/17 08:36 03/30/17 08:36 - Medications Medications: Current Medications Acetaminophen (Tylenol 325mg Tab) 650 mg PO Q6 PRN PRN Reason: Pain, moderate (4-7) Last Admin: 03/28/17 13:21 Dose: 650 mg Brimonidine Tartrate (Alphagan 0.2% Opht) 1 ml OU TID [facility] Last Admin: 03/29/17 17:12 Dose: 1 drop Collagenase (Santyl) 0 gm TOP DAILY [facility] Last Admin: 03/29/17 09:59 Dose: 1 applic Dextrose (Dextrose 50% Inj) 0 ml IV STAT PRN; Protocol PRN Reason: Hyglycemia Protocol Dextrose (Glutose 15) 0 gm PO ONCE PRN; Protocol PRN Reason: Hypoglycemia Protocol Epoetin Maxwell (Procrit) 10,000 unit IV TTS [facility] Last Admin: 03/28/17 10:33 Dose: 10,000 unit Ergocalciferol (Drisdol 50,000 Intl Units Cap) 1 cap PO Q7D [facility] Last Admin: 03/24/17 00:47 Dose: 1 cap Glucagon (Glucagen Diagnostic Kit) 0 mg IM STAT PRN; Protocol PRN Reason: Hypoglycemia Protocol Vancomycin/Sodium Chloride (Vancomycin 1 Gm/Ns 200 Ml) 1 gm in 200 mls @ 133.333 mls/hr IVPB TTS [facility] Last Admin: 03/28/17 13:26 Dose: 133.333 mls/hr Insulin Glargine (Lantus) 25 unit SC HS [facility] Last Admin: 03/16/17 22:27 Dose: Not Given Insulin Human Regular (Novolin R) 0 unit SC ACHS [facility] PRN Reason: Protocol Last Admin: 03/30/17 09:46 Dose: 12 unit Latanoprost (Xalatan Opht) 0.02 ml OU HS [facility] Last Admin: 03/29/17 21:26 Dose: 0.02 ml Lisinopril (Zestril) 20 mg PO DAILY [facility] Last Admin: 03/29/17 10:03 Dose: 20 mg Pantoprazole Sodium (Protonix Ec Tab) 40 mg PO DAILY [facility] Last Admin: 03/29/17 09:59 Dose: 40 mg Rosuvastatin Calcium (Crestor) 10 mg PO HS [facility] Last Admin: 03/29/17 21:26 Dose: 10 mg Timolol Maleate (Timoptic 0.5% Ophth Soln) 1 drop OU BID [facility] Last Admin: 03/29/17 17:12 Dose: 1 drop Vitamin B Complex/Vit C/Folic Acid (Nephro-Kevin) 1 tab PO 0800 [facility] Last Admin: 03/30/17 08:09 Dose: Not Given - Labs Labs: 03/30/17 08:03 03/30/17 08:03 PT 12.0 SECONDS (9.7-12.2) 03/30/17 08:03 INR 1.1 03/30/17 08:03 APTT 26 SECONDS (21-34) 03/30/17 08:03 - Additional Findings Additional findings: - Constitutional Appears: Non-toxic, No Acute Distress, Chronically Ill - Head Exam Head Exam: ATRAUMATIC, NORMAL INSPECTION, NORMOCEPHALIC - Eye Exam Eye Exam: EOMI, Normal appearance - ENT Exam ENT Exam: Mucous Membranes Moist - Neck Exam Neck Exam: Full ROM - Respiratory Exam Respiratory Exam: NORMAL BREATHING PATTERN - Cardiovascular Exam Cardiovascular Exam: +S1, +S2 - GI/Abdominal Exam GI & Abdominal Exam: Soft, Normal Bowel Sounds - Extremities Exam Extremities Exam: Full ROM Additional comments: necrotic calcaneal surface extensive into the medial aspect of the foot; dressing noted , diminished dorsalis pedis pulse in left LE, right upper extremity swelling - Back Exam Back Exam: Full ROM - Neurological Exam Neurological Exam: Awake - Psychiatric Exam Psychiatric exam: Flat Affect - Skin Skin Exam: Dry. absent: Normal Color Assessment and Plan - Assessment and Plan (Free Text) Assessment: Intermittent Altered Mental Status -likely secondary to poor glycemic control - Neurology on board (Dr. Carla) - CT head negative for acute infarction - Discontinued all pain medications, tyelnol prn Cardiac Comorbidties -CHF, HTN. PVD - Echo showed 61% LVEF 03/09/17 - Vascular surgery on board (Dr. Broussard) for PVD - Lisonopril 20mg PO QD - Crestor 10 mg PO HS - R femoral line placed in ICU has been removed Non-healing left heel pressure ulcer -previously VRE positive - Leukocytosis - VRE (left foot ulcer) and C. diff positive on admission, currently resolved - Infectious Disease on board (Dr. Wellington) - Podiatry on board (Dr. Avery) for left foot diabetic ulcer - Dr. Myrick, primary attending spoke at great length with regarding the need for surgical intervention. The of the patient is now agreeable for measures to be taken. This will be discussed with the surgical team. F/U recommendations. - Tylenol prn Dyspnea - Patient has had prior episodes of respiratory distress in the past secondary to effusion. - S/P thoracentesis on 03/27: 900 cc of clear fluid removed from left lung - Most recent CXR 03/27: Decreased left pleural effusion. No pneumothorax. Stable small right pleural effusion. - O2 Sat of 100% on NC 5 L - BiPAP off ESRD on hemodialysis - Pt undergoes hemodialysis //Thu, will dialyze daily to resolve altered mentation - Multiple electrolyte abnormalities throughout this admission, monitor CMPs, magnesium and phosphorous daily - PICC line inserted by IR 03/23/17 now functional, R femoral line removed - Permacath removed by surgery - Ergocalcierol 1 capsule PO Q7D - Procrit - Vancomycin 1gram IVPB 3 times weeks post dialysis Type 2 Diabetes -poorly controlled - Accuchecks ACHS - Regular Insulin high dose protocol for coverahe - Lantus 25u SC HS - A1c of 8.9 02/18/17 Failure to thrive - Hx of dysphagia - GI consult on board ([place]ino) - As of 03/19/17 , GI did not recommend PEG placement due to patient's significant medical comorbidities - Soft diet - C diff neg (02/28) Anemia of chronic disease - Hgb stable. Cont to monitor - Procrit 10,000U IV on dialysis days - Ferrlecit 125mg IVPB TTS Peripheral vascular Disease -Low ext arterial duplex (02/04/17) -occlusion R post tib artery, 50-75% stenosis right mid popliteal & proximal anterior tib arteries -occlusion of left post tib artery, >75% stenosis left proximal ant tibial artery, 50-75% stenosis left distal SFA & proximal popliteal a. - Podiatry on board (Dr. Avery) for left foot diabetic ulcer - As mentioned above, Dr. Myrick, primary attending spoke at great length with regarding the need for surgical intervention. The of the patient is now agreeable for measures to be taken. Prophylactic Measure - Protonix 40mg PO daily - Heparin 5000 U SC Q12 - Nephro-kevin vitamins - SCDs OR Today for BKA <Benson Myrick Jr. - Last Filed: 04/04/17 14:18> Objective - Vital Signs/Intake and Output Vital Signs (last 24 hours): Temp Pulse Resp BP Pulse Ox 97.6 F 92 H 18 144/52 L 100 04/04/17 07:48 04/04/17 07:48 04/04/17 07:48 04/04/17 07:48 04/04/17 07:48 Intake and Output: 04/04/17 04/04/17 06:59 18:59 Intake Total 300 Balance 300 - Medications Medications: Current Medications Acetaminophen (Tylenol 325mg Tab) 650 mg PO Q6 PRN PRN Reason: Pain, moderate (4-7) Last Admin: 03/28/17 13:21 Dose: 650 mg Acetaminophen (Tylenol 325 Mg Supp) 325 mg PA Q6 PRN PRN Reason: Fever >100.4 F Last Admin: 03/31/17 09:36 Dose: 325 mg Brimonidine Tartrate (Alphagan 0.2% Opht) 1 ml OU TID [facility] Last Admin: 04/04/17 13:04 Dose: 1 drop Dextrose (Dextrose 50% Inj) 0 ml IV STAT PRN; Protocol PRN Reason: Hyglycemia Protocol Last Admin: 04/04/17 06:35 Dose: 50 ml Dextrose (Glutose 15) 0 gm PO ONCE PRN; Protocol PRN Reason: Hypoglycemia Protocol Last Admin: 04/01/17 21:54 Dose: 15 gm Ergocalciferol (Drisdol 50,000 Intl Units Cap) 1 cap PO Q7D [facility] Last Admin: 03/31/17 00:35 Dose: 1 cap Glucagon (Glucagen Diagnostic Kit) 0 mg IM STAT PRN; Protocol PRN Reason: Hypoglycemia Protocol Hydromorphone HCl (Dilaudid) 0.5 mg IVP Q4H PRN PRN Reason: Pain, severe (8-10) Last Admin: 04/04/17 11:27 Dose: 0.5 mg Dextrose/Sodium Chloride (Dextrose 5%/0.45% Ns 1000 Ml) 1,000 mls @ 50 mls/hr IV .Q20H REPLACED BY [facility] Last Admin: 04/04/17 13:04 Dose: 50 mls/hr Insulin Detemir (Levemir) 14 unit SC BID@0800,2200 REPLACED BY [facility] Last Admin: 04/04/17 08:26 Dose: Not Given Insulin Glargine (Lantus) 25 unit SC HS [facility]PL[facility]ED [facility] Last Admin: 03/16/17 22:27 Dose: Not Given Insulin Human Regular (Novolin R) 9 unit SC AC [facility]PLACED [facility] Last Admin: 04/04/17 12:00 Dose: Not Given Latanoprost (Xalatan Opht) 0.02 ml OU HS [facility]PL[facility] Last Admin: 04/03/17 21:09 Dose: 0.02 ml Lisinopril (Zestril) 20 mg PO DAILY [facility] Last Admin: 04/04/17 13:08 Dose: 20 mg Pantoprazole Sodium (Protonix Ec Tab) 40 mg PO DAILY [facility] Last Admin: 04/04/17 13:09 Dose: Not Given Timolol Maleate (Timoptic 0.5% Ophth Soln) 1 drop OU BID [facility]PLACED [facility] Last Admin: 04/04/17 09:00 Dose: Not Given Vitamin B Complex/Vit C/Folic Acid (Nephro-Kevin) 1 tab PO 0800 [facility]PL[facility] Last Admin: 04/04/17 13:07 Dose: Not Given - Labs Labs: 04/04/17 10:21 04/04/17 10:21 PT 12.0 SECONDS (9.7-12.2) 03/30/17 08:03 INR 1.1 03/30/17 08:03 APTT 26 SECONDS (21-34) 03/30/17 08:03 Attending/Attestation - Attestation I have personally seen and examined this patient.: Yes I have fully participated in the care of the patient.: Yes I have reviewed all pertinent clinical information, including history, physical exam and plan: Yes Notes (Text): 04/04/17 14:18 Agree with resident note and plan of care
[2017-03-30] MEDS ORDERED: Midazolam 2 MG/2 ML VIAL ONE (15:19)
[2017-03-30] MEDS ORDERED: Propofol 10 mg/ml Inj (20 ML) ONE (15:19)
[2017-03-30] MEDS ORDERED: Etomidate 20 mg/10ml Inj IV ONE (15:24)
[2017-03-30] MEDS ORDERED: Sodium Chloride 0.9% 1,000 ML IV ONE ×4 (15:25)
[2017-03-30] MEDS ORDERED: Rocuronium 10 mg/ml (5 ml) ONE (15:26)
--- NOTE | 2017-03-30 16:51 | PCM.SURG1 ---
Surgeon's Initial Post Op Note - Surgeon's Notes Surgeon: Dr. Broussard Racking Technician: PGY4, Deepak PGY1, Melissa CAAL Type of Anesthesia: General Endo Pre-Operative Diagnosis: Left foot gangrene Operative Findings: see operative report Post-Operative Diagnosis: Left foot gangrene Operation Performed: Left below the knee amputation Specimen/Specimens Removed: Left lower leg Estimated Blood Loss: EBL {In ML}: 100 Blood Products Given: N/A Drains Used: No Drains Post-Op Condition: Good Date of Surgery/Procedure: 03/30/17 Time of Surgery/Procedure: 04:00
[2017-03-30] MEDS ORDERED: HYDROmorphone 0.5 mg/0.5 ml ISec IVP PRN (16:54)
[2017-03-30] MEDS ORDERED: Dextrose 50% VIAL Inj (50 ml) IV ONE (16:57)
--- NOTE | 2017-03-30 17:27 | CP.PCM.PN ---
Subjective - Date & Time of Evaluation Date of Evaluation: 03/30/17 Time of Evaluation: 10:35 - Subjective Subjective: patient seen and examined Lying comfortably in no distress Status post thoracentesis Hemodialysis tomorrow Family decided for amputation On antibiotics Objective - Vital Signs/Intake and Output Vital Signs (last 24 hours): Temp Pulse Resp BP Pulse Ox 99.5 F 101 H 18 114/75 100 03/30/17 14:15 03/30/17 14:15 03/30/17 14:15 03/30/17 14:15 03/30/17 14:15 Intake and Output: 03/30/17 03/30/17 06:59 18:59 Intake Total 120 Balance 120 - Medications Medications: Current Medications Acetaminophen (Tylenol 325mg Tab) 650 mg PO Q6 PRN PRN Reason: Pain, moderate (4-7) Last Admin: 03/28/17 13:21 Dose: 650 mg Brimonidine Tartrate (Alphagan 0.2% Opht) 1 ml OU TID [facility] Last Admin: 03/30/17 14:24 Dose: Not Given Dextrose (Dextrose 50% Inj) 0 ml IV STAT PRN; Protocol PRN Reason: Hyglycemia Protocol Dextrose (Glutose 15) 0 gm PO ONCE PRN; Protocol PRN Reason: Hypoglycemia Protocol Epoetin Maxwell (Procrit) 10,000 unit IV TTS [facility] Last Admin: 03/28/17 10:33 Dose: 10,000 unit Ergocalciferol (Drisdol 50,000 Intl Units Cap) 1 cap PO Q7D [facility] Last Admin: 03/24/17 00:47 Dose: 1 cap Glucagon (Glucagen Diagnostic Kit) 0 mg IM STAT PRN; Protocol PRN Reason: Hypoglycemia Protocol Hydromorphone HCl (Dilaudid) 0.5 mg IVP Q5M PRN PRN Reason: Pain, moderate (4-7) Stop: 03/30/17 18:55 Hydromorphone HCl (Dilaudid) 0.5 mg IVP Q4H PRN PRN Reason: Pain, severe (8-10) Vancomycin/Sodium Chloride (Vancomycin 1 Gm/Ns 200 Ml) 1 gm in 200 mls @ 133.333 mls/hr IVPB TTS [facility] Last Admin: 03/28/17 13:26 Dose: 133.333 mls/hr Insulin Glargine (Lantus) 25 unit SC HS [facility] Last Admin: 03/16/17 22:27 Dose: Not Given Insulin Human Regular (Novolin R) 0 unit SC ACHS [facility] PRN Reason: Protocol Last Admin: 03/30/17 11:30 Dose: Not Given Latanoprost (Xalatan Opht) 0.02 ml OU HS [facility] Last Admin: 03/29/17 21:26 Dose: 0.02 ml Lisinopril (Zestril) 20 mg PO DAILY [facility] Last Admin: 03/30/17 10:00 Dose: Not Given Ondansetron HCl (Zofran Inj) 4 mg IVP ONCE PRN PRN Reason: Nausea/Vomiting Stop: 03/30/17 18:55 Pantoprazole Sodium (Protonix Ec Tab) 40 mg PO DAILY [facility] Last Admin: 03/30/17 10:00 Dose: Not Given Rosuvastatin Calcium (Crestor) 10 mg PO HS [facility] Last Admin: 03/29/17 21:26 Dose: 10 mg Timolol Maleate (Timoptic 0.5% Oph Soln) 1 drop OU BID [facility] Last Admin: 03/30/17 10:00 Dose: Not Given Vitamin B Complex/Vit C/Folic Acid (Nephro-Alonzo) 1 tab PO 0800 [facility] Last Admin: 03/30/17 08:09 Dose: Not Given - Labs Labs: 03/30/17 08:03 03/30/17 08:03 PT 12.0 SECONDS (9.7-12.2) 03/30/17 08:03 INR 1.1 03/30/17 08:03 APTT 26 SECONDS (21-34) 03/30/17 08:03 - Head Exam Head Exam: ATRAUMATIC, NORMOCEPHALIC - Eye Exam Eye Exam: Normal appearance - Neck Exam Neck Exam: Normal Inspection - Respiratory Exam Respiratory Exam: Decreased Breath Sounds - Cardiovascular Exam Cardiovascular Exam: REGULAR RHYTHM - GI/Abdominal Exam GI & Abdominal Exam: Soft, Normal Bowel Sounds Assessment and Plan (1) Pleural effusion Assessment & Plan: status post thoracentesis Followup chest x-ray For amputation Continue dialysis Off BiPAP Status: Chronic (2) Change in mental status Status: Acute (3) Clostridium difficile colitis Status: Acute (4) End stage renal disease on dialysis Status: Acute
--- NOTE | 2017-03-30 19:06 | CP.PCM.PN ---
Subjective - Date & Time of Evaluation Date of Evaluation: 03/30/17 Time of Evaluation: 14:00 - Subjective Subjective: SEEN ON RENAL F/U S/P L BKA ON HD T T S A& O .. ON BAD SIDE Objective - Vital Signs/Intake and Output Vital Signs (last 24 hours): Temp Pulse Resp BP Pulse Ox 97.3 F L 96 H 18 120/72 96 03/30/17 18:43 03/30/17 18:15 03/30/17 18:43 03/30/17 18:43 03/30/17 18:43 Intake and Output: 03/30/17 03/31/17 18:59 06:59 Intake Total 220 Balance 220 - Medications Medications: Current Medications Acetaminophen (Tylenol 325mg Tab) 650 mg PO Q6 PRN PRN Reason: Pain, moderate (4-7) Last Admin: 03/28/17 13:21 Dose: 650 mg Brimonidine Tartrate (Alphagan 0.2% Opht) 1 ml OU TID [facility] Last Admin: 03/30/17 14:24 Dose: Not Given Dextrose (Dextrose 50% Inj) 0 ml IV STAT PRN; Protocol PRN Reason: Hyglycemia Protocol Dextrose (Glutose 15) 0 gm PO ONCE PRN; Protocol PRN Reason: Hypoglycemia Protocol Epoetin Maxwell (Procrit) 10,000 unit IV TTS [facility] Last Admin: 03/28/17 10:33 Dose: 10,000 unit Ergocalciferol (Drisdol 50,000 Intl Units Cap) 1 cap PO Q7D [facility] Last Admin: 03/24/17 00:47 Dose: 1 cap Glucagon (Glucagen Diagnostic Kit) 0 mg IM STAT PRN; Protocol PRN Reason: Hypoglycemia Protocol Hydromorphone HCl (Dilaudid) 0.5 mg IVP Q4H PRN PRN Reason: Pain, severe (8-10) Vancomycin/Sodium Chloride (Vancomycin 1 Gm/Ns 200 Ml) 1 gm in 200 mls @ 133.333 mls/hr IVPB TTS [facility] Last Admin: 03/28/17 13:26 Dose: 133.333 mls/hr Insulin Glargine (Lantus) 25 unit SC HS [facility] Last Admin: 03/16/17 22:27 Dose: Not Given Insulin Human Regular (Novolin R) 0 unit SC ACHS [facility] PRN Reason: Protocol Last Admin: 03/30/17 16:30 Dose: Not Given Latanoprost (Xalatan Opht) 0.02 ml OU HS [facility] Last Admin: 03/29/17 21:26 Dose: 0.02 ml Lisinopril (Zestril) 20 mg PO DAILY [facility] Last Admin: 03/30/17 10:00 Dose: Not Given Pantoprazole Sodium (Protonix Ec Tab) 40 mg PO DAILY [facility] Last Admin: 03/30/17 10:00 Dose: Not Given Rosuvastatin Calcium (Crestor) 10 mg PO HS [facility] Last Admin: 03/29/17 21:26 Dose: 10 mg Timolol Maleate (Timoptic 0.5% Ophth Soln) 1 drop OU BID [facility] Last Admin: 03/30/17 10:00 Dose: Not Given Vitamin B Complex/Vit C/Folic Acid (Nephro-Alonzo) 1 tab PO 0800 [facility] Last Admin: 03/30/17 08:09 Dose: Not Given - Labs Labs: 03/30/17 08:03 03/30/17 08:03 PT 12.0 SECONDS (9.7-12.2) 03/30/17 08:03 INR 1.1 03/30/17 08:03 APTT 26 SECONDS (21-34) 03/30/17 08:03 Assessment and Plan - Assessment and Plan (Free Text) Assessment: ESRD ON HD T T S .. TO BE C/O ANEMIA OF CKD .. ON EPO AND FERLICIT S/P L BKA MMP P : C/O CURRENT CARE C/O PRESENT MANAGEMENT
[2017-03-30] MEDS: Latanoprost 2.5 ml Opht Soln OU SCH (22:19)
[2017-03-31] MEDS: Ergocalciferol 50,000 Intl Units Cap PO SCH (00:35)
[2017-03-31] MEDS: HYDROmorphone 0.5 mg/0.5 ml ISec IVP PRN (02:32)
[2017-03-31] MEDS: (Novolin R) Insulin Human Regular 100 units/ml vial SC SCH ×3 (06:36→21:52)
--- NOTE | 2017-03-31 07:27 | OP ---
PROCEDURE DATE: 03/30/2017 PREOPERATIVE DIAGNOSIS: Gangrene, left foot. PROCEDURE CARRIED OUT: Left below-knee amputation. SURGEON: Ignacio Broussard Jr., MD HEALTH ADMINISTRATOR: Dr. Lerner. ANESTHESIOLOGIST: Mr. Lucero. INDICATION: The patient is an elderly woman with diabetes, on dialysis; previously had successful revascularization, but has an intractable heel wound, which has not done better. OPERATIVE FINDINGS: Standard left below-knee amputation was carried out. BLOOD LOSS FOR THE PROCEDURE: 100 mL. DESCRIPTION OF PROCEDURE: The patient was given general anesthesia, intravenous antibiotics. Leg was prepped and draped. Below-knee amputation, long posterior flap was carried out. Tibia and fibula were cut, fibula at a higher level. After obtaining hemostasis, we approximated the wound. The wound was closed with layers and with 5 nylon sutures on the skin and skin hooks. No operative complications or problems. Operation carried out, left-below knee amputation. Ignacio Broussard Jr., MD
[2017-03-31] MEDS: Multivitamin Vitamin B Complex (Nephro-Vite) Tab PO SCH (09:04)
--- NOTE | 2017-03-31 09:20 | CP.PCM.PN ---
Subjective - Date & Time of Evaluation Date of Evaluation: 03/31/17 Time of Evaluation: 06:55 - Subjective Subjective: General/Vascular Surgery Pt S&E, NAEO. Pain appears controlled. Objective - Vital Signs/Intake and Output Vital Signs (last 24 hours): Temp Pulse Resp BP Pulse Ox 100.7 F H 107 H 20 96/47 L 99 03/31/17 08:57 03/31/17 08:57 03/31/17 08:57 03/31/17 08:57 03/31/17 07:48 Intake and Output: 03/31/17 03/31/17 06:59 18:59 Intake Total 0 Balance 0 - Medications Medications: Current Medications Acetaminophen (Tylenol 325mg Tab) 650 mg PO Q6 PRN PRN Reason: Pain, moderate (4-7) Last Admin: 03/28/17 13:21 Dose: 650 mg Brimonidine Tartrate (Alphagan 0.2% Opht) 1 ml OU TID [facility] Last Admin: 03/30/17 18:00 Dose: Not Given Dextrose (Dextrose 50% Inj) 0 ml IV STAT PRN; Protocol PRN Reason: Hyglycemia Protocol Dextrose (Glutose 15) 0 gm PO ONCE PRN; Protocol PRN Reason: Hypoglycemia Protocol Epoetin Maxwell (Procrit) 10,000 unit IV TTS [facility] Last Admin: 03/28/17 10:33 Dose: 10,000 unit Ergocalciferol (Drisdol 50,000 Intl Units Cap) 1 cap PO Q7D [facility] Last Admin: 03/31/17 00:35 Dose: 1 cap Glucagon (Glucagen Diagnostic Kit) 0 mg IM STAT PRN; Protocol PRN Reason: Hypoglycemia Protocol Hydromorphone HCl (Dilaudid) 0.5 mg IVP Q4H PRN PRN Reason: Pain, severe (8-10) Last Admin: 03/31/17 02:32 Dose: 0.5 mg Vancomycin/Sodium Chloride (Vancomycin 1 Gm/Ns 200 Ml) 1 gm in 200 mls @ 133.333 mls/hr IVPB TTS [facility] Last Admin: 03/28/17 13:26 Dose: 133.333 mls/hr Insulin Glargine (Lantus) 25 unit SC HS [facility] Last Admin: 03/16/17 22:27 Dose: Not Given Insulin Human Regular (Novolin R) 0 unit SC ACHS [facility] PRN Reason: Protocol Last Admin: 03/31/17 06:36 Dose: 12 unit Latanoprost (Xalatan Opht) 0.02 ml OU HS [facility] Last Admin: 03/30/17 22:19 Dose: Not Given Lisinopril (Zestril) 20 mg PO DAILY [facility] Last Admin: 03/30/17 10:00 Dose: Not Given Pantoprazole Sodium (Protonix Ec Tab) 40 mg PO DAILY [facility] Last Admin: 03/30/17 10:00 Dose: Not Given Rosuvastatin Calcium (Crestor) 10 mg PO HS [facility] Last Admin: 03/30/17 22:19 Dose: Not Given Timolol Maleate (Timoptic 0.5% Ophth Soln) 1 drop OU BID [facility] Last Admin: 03/30/17 18:00 Dose: Not Given Vitamin B Complex/Vit C/Folic Acid (Nephro-Alonzo) 1 tab PO 0800 [facility] Last Admin: 03/31/17 09:04 Dose: Not Given - Labs Labs: 03/30/17 08:03 03/30/17 08:03 PT 12.0 SECONDS (9.7-12.2) 03/30/17 08:03 INR 1.1 03/30/17 08:03 APTT 26 SECONDS (21-34) 03/30/17 08:03 - Constitutional Appears: Non-toxic, No Acute Distress - Head Exam Head Exam: ATRAUMATIC, NORMOCEPHALIC - Respiratory Exam Respiratory Exam: NORMAL BREATHING PATTERN. absent: Respiratory Distress - Extremities Exam Additional comments: L BKA, dressing C/D/I, knee brace in place - Skin Skin Exam: Dry, Warm Assessment and Plan - Assessment and Plan (Free Text) Assessment: 71F POD#1 s/p L BKA Plan: Pain control Monitor dressing, do not remove. Brace to remain in place Monitor hgb D/W Dr. Bobo Lerner PGY4
[2017-03-31] MEDS: Pantoprazole 40 mg EC Tab PO SCH (10:30)
[2017-03-31] MEDS: Brimonidine 0.2% Opth Sol (5ml) OU SCH ×3 (10:30→18:03)
[2017-03-31 10:46] LABS: HEMATOCRIT 29.5 % (34.0-47.0); MEAN CORPUSCULAR HEMOGLOBIN 30.5 pg (27.0-31.0); MEAN CORPUSCULAR HGB CONC 31.3 g/dL (33.0-37.0); MEAN PLATELET VOLUME 8.2 fL (7.2-11.7); RED CELL DISTRIBUTION WIDTH 22.7 % (11.5-14.5)
[2017-03-31 10:57] LABS: MEAN CELL VOLUME 97.5 fL (81.0-99.0)
[2017-03-31 11:08] LABS: POTASSIUM 5.1 mmol/L (3.6-5.2)
[2017-03-31 11:10] LABS: BILIRUBIN,TOTAL 0.7 mg/dL (0.2-1.3)
[2017-03-31 11:11] LABS: CALCIUM 6.9 mg/dl (8.6-10.4); TOTAL PROTEIN 4.3 g/dL (6.3-8.3)
[2017-03-31] MEDS ORDERED: Ferric Sodium Gluconat Complex 62.5 mg/5 ml Vial IVPB ONE (13:14)
[2017-03-31] MEDS: Epoetin Alfa 10,000 unit/ml Dialysis IV SCH (13:16)
[2017-03-31] MEDS: Vancomycin 1 gm/NS 200 ml 1 GM/200 ML BAG IVPB SCH (14:51)
--- NOTE | 2017-03-31 17:04 | CP.PCM.PN ---
<Trevor Elkins - Last Filed: 03/31/17 17:00> Subjective - Date & Time of Evaluation Date of Evaluation: 03/31/17 Time of Evaluation: 17:00 - Subjective Subjective: Medicine Progress Note for Dr. Myrick HPI: Patient seen and examined at bedside. Family at bedside. Seen in Dialysis. ROS Unattainable. Objective - Vital Signs/Intake and Output Vital Signs (last 24 hours): Temp Pulse Resp BP Pulse Ox 98.3 F 101 H 20 116/63 96 03/31/17 16:00 03/31/17 16:00 03/31/17 16:00 03/31/17 16:00 03/31/17 16:00 Intake and Output: 03/31/17 03/31/17 06:59 18:59 Intake Total 0 Balance 0 - Medications Medications: Current Medications Acetaminophen (Tylenol 325mg Tab) 650 mg PO Q6 PRN PRN Reason: Pain, moderate (4-7) Last Admin: 03/28/17 13:21 Dose: 650 mg Acetaminophen (Tylenol 325 Mg Supp) 325 mg SD Q6 PRN PRN Reason: Fever >100.4 F Last Admin: 03/31/17 09:36 Dose: 325 mg Brimonidine Tartrate (Alphagan 0.2% Opht) 1 ml OU TID [facility] Last Admin: 03/31/17 14:43 Dose: Not Given Dextrose (Dextrose 50% Inj) 0 ml IV STAT PRN; Protocol PRN Reason: Hyglycemia Protocol Dextrose (Glutose 15) 0 gm PO ONCE PRN; Protocol PRN Reason: Hypoglycemia Protocol Epoetin Maxwell (Procrit) 10,000 unit IV TTS [facility] Last Admin: 03/31/17 13:16 Dose: 10,000 unit Ergocalciferol (Drisdol 50,000 Intl Units Cap) 1 cap PO Q7D [facility] Last Admin: 03/31/17 00:35 Dose: 1 cap Glucagon (Glucagen Diagnostic Kit) 0 mg IM STAT PRN; Protocol PRN Reason: Hypoglycemia Protocol Hydromorphone HCl (Dilaudid) 0.5 mg IVP Q4H PRN PRN Reason: Pain, severe (8-10) Last Admin: 03/31/17 02:32 Dose: 0.5 mg Vancomycin/Sodium Chloride (Vancomycin 1 Gm/Ns 200 Ml) 1 gm in 200 mls @ 133.333 mls/hr IVPB TTS [facility] Last Admin: 03/31/17 14:51 Dose: 133.333 mls/hr Insulin Glargine (Lantus) 25 unit SC HS [facility] Last Admin: 03/16/17 22:27 Dose: Not Given Insulin Human Regular (Novolin R) 0 unit SC ACHS [facility] PRN Reason: Protocol Last Admin: 03/31/17 16:49 Dose: 8 unit Latanoprost (Xalatan Opht) 0.02 ml OU HS [facility] Last Admin: 03/30/17 22:19 Dose: Not Given Lisinopril (Zestril) 20 mg PO DAILY [facility] Last Admin: 03/31/17 10:30 Dose: Not Given Pantoprazole Sodium (Protonix Ec Tab) 40 mg PO DAILY [facility] Last Admin: 03/31/17 10:30 Dose: Not Given Rosuvastatin Calcium (Crestor) 10 mg PO HS [facility] Last Admin: 03/30/17 22:19 Dose: Not Given Timolol Maleate (Timoptic 0.5% [facility]) 1 drop OU BID [facility] Last Admin: 03/31/17 10:30 Dose: Not Given Vitamin B Complex/Vit C/Folic Acid (Nephro-Kevin) 1 tab PO 0800 [facility] Last Admin: 03/31/17 09:04 Dose: Not Given - Labs Labs: 03/31/17 10:34 03/31/17 10:34 PT 12.0 SECONDS (9.7-12.2) 03/30/17 08:03 INR 1.1 03/30/17 08:03 APTT 26 SECONDS (21-34) 03/30/17 08:03 - Constitutional Appears: Chronically Ill - Head Exam Head Exam: ATRAUMATIC, NORMAL INSPECTION, NORMOCEPHALIC - Eye Exam Eye Exam: EOMI Pupil Exam: NORMAL ACCOMODATION - ENT Exam ENT Exam: Mucous Membranes Moist - Respiratory Exam Respiratory Exam: Clear to Ausculation Bilateral, NORMAL BREATHING PATTERN - Cardiovascular Exam Cardiovascular Exam: REGULAR RHYTHM - GI/Abdominal Exam GI & Abdominal Exam: Soft, Normal Bowel Sounds. absent: Distended, Tenderness - Extremities Exam Additional comments: status post L. BKA. Dressing and brace in place - Skin Skin Exam: Dry, Intact, Normal Color, Warm Assessment and Plan - Assessment and Plan (Free Text) Assessment: Intermittent Altered Mental Status -likely secondary to poor glycemic control - Neurology on board (Dr. Aguirre) - CT head negative for acute infarction - Discontinued all pain medications, tyelnol prn Cardiac Comorbidties -CHF, HTN. PVD - Echo showed 61% LVEF 03/09/17 - Vascular surgery on board (Dr. Broussard) for PVD - Lisonopril 20mg PO QD - Crestor 10 mg PO HS - R femoral line placed in ICU has been removed S/P L. BKA - dressing changes per surgery - keep brace on Dyspnea - Patient has had prior episodes of respiratory distress in the past secondary to effusion. - S/P thoracentesis on 03/27: 900 cc of clear fluid removed from left lung - Most recent CXR 03/27: Decreased left pleural effusion. No pneumothorax. Stable small right pleural effusion. - O2 Sat of 100% on NC 5 L - BiPAP off ESRD on hemodialysis - Pt undergoes hemodialysis //Thu, will dialyze daily to resolve altered mentation - Multiple electrolyte abnormalities throughout this admission, monitor CMPs, magnesium and phosphorous daily - PICC line inserted by IR 03/23/17 now functional, R femoral line removed - Permacath removed by surgery - Ergocalcierol 1 capsule PO Q7D - Procrit - Vancomycin 1gram IVPB 3 times weeks post dialysis Type 2 Diabetes -poorly controlled - Accuchecks ACHS - Regular Insulin high dose protocol for coverahe - Lantus 25u SC HS - A1c of 8.9 02/18/17 Failure to thrive - Hx of dysphagia - GI consult on board ([place]) - As of 03/19/17 , GI did not recommend PEG placement due to patient's significant medical comorbidities - Soft diet - C diff neg (02/28) Anemia of chronic disease - Hgb stable. Cont to monitor - Procrit 10,000U IV on dialysis days - Ferrlecit 125mg IVPB TTS Peripheral vascular Disease -Low ext arterial duplex (02/04/17) -occlusion R post tib artery, 50-75% stenosis right mid popliteal & proximal anterior tib arteries -occlusion of left post tib artery, >75% stenosis left proximal ant tibial artery, 50-75% stenosis left distal SFA & proximal popliteal a. Prophylactic Measure - Protonix 40mg PO daily - Heparin 5000 U SC Q12 - Nephro-kevin vitamins - SCDs <Benson Myrick Jr. - Last Filed: 04/04/17 14:18> Objective - Vital Signs/Intake and Output Vital Signs (last 24 hours): Temp Pulse Resp BP Pulse Ox 97.6 F 92 H 18 144/52 L 100 04/04/17 07:48 04/04/17 07:48 04/04/17 07:48 04/04/17 07:48 04/04/17 07:48 Intake and Output: 04/04/17 04/04/17 06:59 18:59 Intake Total 300 Balance 300 - Medications Medications: Current Medications Acetaminophen (Tylenol 325mg Tab) 650 mg PO Q6 PRN PRN Reason: Pain, moderate (4-7) Last Admin: 03/28/17 13:21 Dose: 650 mg Acetaminophen (Tylenol 325 Mg Supp) 325 mg SD Q6 PRN PRN Reason: Fever >100.4 F Last Admin: 03/31/17 09:36 Dose: 325 mg Brimonidine Tartrate (Alphagan 0.2% Opht) 1 ml OU TID [facility] Last Admin: 04/04/17 13:04 Dose: 1 drop Dextrose (Dextrose 50% Inj) 0 ml IV STAT PRN; Protocol PRN Reason: Hyglycemia Protocol Last Admin: 04/04/17 06:35 Dose: 50 ml Dextrose (Glutose 15) 0 gm PO ONCE PRN; Protocol PRN Reason: Hypoglycemia Protocol Last Admin: 04/01/17 21:54 Dose: 15 gm Ergocalciferol (Drisdol 50,000 Intl Units Cap) 1 cap PO Q7D [facility] Last Admin: 03/31/17 00:35 Dose: 1 cap Glucagon (Glucagen Diagnostic Kit) 0 mg IM STAT PRN; Protocol PRN Reason: Hypoglycemia Protocol Hydromorphone HCl (Dilaudid) 0.5 mg IVP Q4H PRN PRN Reason: Pain, severe (8-10) Last Admin: 04/04/17 11:27 Dose: 0.5 mg Dextrose/Sodium Chloride (Dextrose 5%/0.45% Ns 1000 Ml) 1,000 mls @ 50 mls/hr IV .Q20H [facility] Last Admin: 04/04/17 13:04 Dose: 50 mls/hr Insulin Detemir (Levemir) 14 unit SC BID@0800,2200 [facility] Last Admin: 04/04/17 08:26 Dose: Not Given Insulin Glargine (Lantus) 25 unit SC HS [facility] Last Admin: 03/16/17 22:27 Dose: Not Given Insulin Human Regular (Novolin R) 9 unit SC AC [facility] Last Admin: 04/04/17 12:00 Dose: Not Given Latanoprost (Xalatan Opht) 0.02 ml OU HS [facility] Last Admin: 04/03/17 21:09 Dose: 0.02 ml Lisinopril (Zestril) 20 mg PO DAILY [facility] Last Admin: 04/04/17 13:08 Dose: 20 mg Pantoprazole Sodium (Protonix Ec Tab) 40 mg PO DAILY [facility] Last Admin: 04/04/17 13:09 Dose: Not Given Timolol Maleate (Timoptic 0.5% Ophth Soln) 1 drop OU BID [facility] Last Admin: 04/04/17 09:00 Dose: Not Given Vitamin B Complex/Vit C/Folic Acid (Nephro-Kevin) 1 tab PO 0800 [facility] Last Admin: 04/04/17 13:07 Dose: Not Given - Labs Labs: 04/04/17 10:21 04/04/17 10:21 PT 12.0 SECONDS (9.7-12.2) 03/30/17 08:03 INR 1.1 03/30/17 08:03 APTT 26 SECONDS (21-34) 03/30/17 08:03 Attending/Attestation - Attestation I have personally seen and examined this patient.: Yes I have fully participated in the care of the patient.: Yes I have reviewed all pertinent clinical information, including history, physical exam and plan: Yes Notes (Text): 04/04/17 14:18 Agree with resident note and plan of care
--- NOTE | 2017-03-31 19:07 | CP.PCM.PN ---
Subjective - Date & Time of Evaluation Date of Evaluation: 03/31/17 Time of Evaluation: 14:00 - Subjective Subjective: SEEN ON RENAL F/U SEEN ON HD BP DROPPED PN HD .. UF WAS LESSENED LYING FLAT IN BED .. DOESNT TALK .. IN NAD D/W ALL PREVIOUS EMR REVIEWED Objective - Vital Signs/Intake and Output Vital Signs (last 24 hours): Temp Pulse Resp BP Pulse Ox 98.3 F 101 H 20 116/63 96 03/31/17 16:00 03/31/17 16:00 03/31/17 16:00 03/31/17 16:00 03/31/17 16:00 - Medications Medications: Current Medications Acetaminophen (Tylenol 325mg Tab) 650 mg PO Q6 PRN PRN Reason: Pain, moderate (4-7) Last Admin: 03/28/17 13:21 Dose: 650 mg Acetaminophen (Tylenol 325 Mg Supp) 325 mg SD Q6 PRN PRN Reason: Fever >100.4 F Last Admin: 03/31/17 09:36 Dose: 325 mg Brimonidine Tartrate (Alphagan 0.2% Opht) 1 ml OU TID [facility] Last Admin: 03/31/17 18:03 Dose: 1 drop Dextrose (Dextrose 50% Inj) 0 ml IV STAT PRN; Protocol PRN Reason: Hyglycemia Protocol Dextrose (Glutose 15) 0 gm PO ONCE PRN; Protocol PRN Reason: Hypoglycemia Protocol Epoetin Maxwell (Procrit) 10,000 unit IV TTS [facility] Last Admin: 03/31/17 13:16 Dose: 10,000 unit Ergocalciferol (Drisdol 50,000 Intl Units Cap) 1 cap PO Q7D [facility] Last Admin: 03/31/17 00:35 Dose: 1 cap Glucagon (Glucagen Diagnostic Kit) 0 mg IM STAT PRN; Protocol PRN Reason: Hypoglycemia Protocol Hydromorphone HCl (Dilaudid) 0.5 mg IVP Q4H PRN PRN Reason: Pain, severe (8-10) Last Admin: 03/31/17 02:32 Dose: 0.5 mg Vancomycin/Sodium Chloride (Vancomycin 1 Gm/Ns 200 Ml) 1 gm in 200 mls @ 133.333 mls/hr IVPB TTS [facility] Last Admin: 03/31/17 14:51 Dose: 133.333 mls/hr Insulin Glargine (Lantus) 25 unit SC HS [facility] Last Admin: 03/16/17 22:27 Dose: Not Given Insulin Human Regular (Novolin R) 0 unit SC ACHS [facility] PRN Reason: Protocol Last Admin: 03/31/17 16:49 Dose: 8 unit Latanoprost (Xalatan Opht) 0.02 ml OU HS [facility] Last Admin: 03/30/17 22:19 Dose: Not Given Lisinopril (Zestril) 20 mg PO DAILY [facility] Last Admin: 03/31/17 10:30 Dose: Not Given Pantoprazole Sodium (Protonix Ec Tab) 40 mg PO DAILY [facility] Last Admin: 03/31/17 10:30 Dose: Not Given Rosuvastatin Calcium (Crestor) 10 mg PO HS [facility] Last Admin: 03/30/17 22:19 Dose: Not Given Timolol [facility] Last Admin: 03/31/17 18:03 Dose: 1 drop Vitamin B Complex/Vit C/Folic Acid (Nephro-Alonzo) 1 tab PO 0800 [facility] Last Admin: 03/31/17 09:04 Dose: Not Given - Labs Labs: 03/31/17 10:34 03/31/17 10:34 PT 12.0 SECONDS (9.7-12.2) 03/30/17 08:03 INR 1.1 03/30/17 08:03 APTT 26 SECONDS (21-34) 03/30/17 08:03 Assessment and Plan - Assessment and Plan (Free Text) Assessment: ESRD ON HD T T S .. TO BE C/O ANEMIA OF CKD .. H/H BETTER S/P L BKA MULTIPLE CO MORBIDITIES P : C/O CURRENT CARE C/O PRESENT MANAGEMENT
--- NOTE | 2017-03-31 20:20 | CARD ---
APPROVED REPORT EKG Measurement Heart [id number] <Conclusion> Normal sinus rhythm Low voltage QRS ST & T wave abnormality, consider lateral ischemia Abnormal ECG
[2017-04-01] MEDS: Multivitamin Vitamin B Complex (Nephro-Vite) Tab PO SCH (08:57)
[2017-04-01] MEDS: (Novolin R) Insulin Human Regular 100 units/ml vial SC SCH ×4 (08:57→22:10)
[2017-04-01] MEDS: Pantoprazole 40 mg EC Tab PO SCH (10:48)
[2017-04-01] MEDS: Brimonidine 0.2% Opth Sol (5ml) OU SCH ×3 (10:48→18:32)
--- NOTE | 2017-04-01 11:43 | US ---
PROCEDURE: Date of procedure: 03/27/2017 Procedure: 1. Ultrasound-guided Right thoracentesis, CPT 94519 Medications: 6cc 1% Lidocaine HISTORY: Right pleural effusion, shortness of breath TECHNIQUE: Following informed consent ,the Patients' right chest was marked. Procedure time-out was called, and the patient was placed in the sitting position and limited ultrasound showed a large right effusion. The patient's right back was prepped and draped in the usual sterile fashion. After the skin was anesthetized with lidocaine, a drainage catheter was advanced under ultrasound guidance into the pleural space. Ultrasound-guided thoracentesis was performed. A total of 900 cubic centimeters of straw-colored fluid removed without complication. A Xeroform dressing was applied. IMPRESSION: Ultrasound guided Right thoracentesis. There were no immediate complications.
--- NOTE | 2017-04-01 11:44 | SPECPROC ---
PROCEDURE: Date of procedure: 03/23/2017 Procedure: 1. Placement of a right arm PICC with ultrasound and fluoroscopic guidance, CPT 74873 2. PICC tip confirmation with spot radiograph and is in the superior vena cava Medications: 1 percent lidocaine Total Fluoro time: 4 seconds Radiation: 2 mGy EBL: 2 cc HISTORY: Poor venous access TECHNIQUE: Following informed consent and procedure time-out, the patient was placed supine on the interventional table and the right arm prepped and draped in the usual sterile fashion. Ultrasound showed a patent and compressible right basilic vein. After the skin was anesthetized with lidocaine, the basilic vein was accessed with micro micropuncture technique using ultrasound guidance. A guidewire was then advanced under fluoroscopic guidance into the superior vena cava. An image documenting ultrasound guidance for vascular access was permanently saved. The length of the single-lumen 4 Uzbek PICC was trimmed to 33 centimeters and advanced through a peel-away sheath. The PICC was position with tip of PICC confirm a spot radiograph the superior vena cava. The PICC was secured to the patient's skin. The PICC was flushed. A biopatch and sterile dressing was applied. IMPRESSION: 3337 centimeters via right basilic vein. The tip of the PICC is confirmed with spot radiograph and is in the superior vena cava.
--- NOTE | 2017-04-01 12:08 | CP.PCM.PN ---
Subjective - Date & Time of Evaluation Date of Evaluation: 04/01/17 Time of Evaluation: 12:06 - Subjective Subjective: Surgery: Dr. Broussard Pt seen and examined. Per nursing, no acute events overnight. Pt's pain has been controlled. Per nursing, poor PO intake. Objective - Vital Signs/Intake and Output Vital Signs (last 24 hours): Temp Pulse Resp BP Pulse Ox 99.8 F H 103 H 18 103/53 L 96 04/01/17 08:06 04/01/17 11:02 04/01/17 08:06 04/01/17 11:02 04/01/17 08:06 - Medications Medications: Current Medications Acetaminophen (Tylenol 325mg Tab) 650 mg PO Q6 PRN PRN Reason: Pain, moderate (4-7) Last Admin: 03/28/17 13:21 Dose: 650 mg Acetaminophen (Tylenol 325 Mg Supp) 325 mg MD Q6 PRN PRN Reason: Fever >100.4 F Last Admin: 03/31/17 09:36 Dose: 325 mg Brimonidine Tartrate (Alphagan 0.2% Opht) 1 ml OU TID [facility] Last Admin: 04/01/17 10:48 Dose: 1 drop Dextrose (Dextrose 50% Inj) 0 ml IV STAT PRN; Protocol PRN Reason: Hyglycemia Protocol Dextrose (Glutose 15) 0 gm PO ONCE PRN; Protocol PRN Reason: Hypoglycemia Protocol Epoetin Maxwell (Procrit) 10,000 unit IV TTS [facility] Last Admin: 03/31/17 13:16 Dose: 10,000 unit Ergocalciferol (Drisdol 50,000 Intl Units Cap) 1 cap PO Q7D [facility] Last Admin: 03/31/17 00:35 Dose: 1 cap Glucagon (Glucagen Diagnostic Kit) 0 mg IM STAT PRN; Protocol PRN Reason: Hypoglycemia Protocol Hydromorphone HCl (Dilaudid) 0.5 mg IVP Q4H PRN PRN Reason: Pain, severe (8-10) Last Admin: 03/31/17 02:32 Dose: 0.5 mg Vancomycin/Sodium Chloride (Vancomycin 1 Gm/Ns 200 Ml) 1 gm in 200 mls @ 133.333 mls/hr IVPB TTS [facility] Last Admin: 03/31/17 14:51 Dose: 133.333 mls/hr Insulin Glargine (Lantus) 25 unit SC HS [facility] Last Admin: 03/16/17 22:27 Dose: Not Given Insulin Human Regular (Novolin R) 0 unit SC ACHS [facility] PRN Reason: Protocol Last Admin: 04/01/17 08:57 Dose: 10 unit Latanoprost (Xalatan Opht) 0.02 ml OU HS [facility] Last Admin: 03/30/17 22:19 Dose: Not Given Lisinopril (Zestril) 20 mg PO DAILY [facility] Last Admin: 04/01/17 10:48 Dose: Not Given Pantoprazole Sodium (Protonix Ec Tab) 40 mg PO DAILY [facility] Last Admin: 04/01/17 10:48 Dose: 40 mg Rosuvastatin Calcium (Crestor) 10 mg PO HS [facility] Last Admin: 03/31/17 21:52 Dose: Not Given Timolol Maleate (Timoptic 0.5% Oph Soln) 1 drop OU BID [facility] Last Admin: 04/01/17 10:48 Dose: 1 drop Vitamin B Complex/Vit C/Folic Acid (Nephro-Alonzo) 1 tab PO 0800 [facility] Last Admin: 04/01/17 08:57 Dose: 1 tab - Labs Labs: 03/31/17 10:34 03/31/17 10:34 PT 12.0 SECONDS (9.7-12.2) 03/30/17 08:03 INR 1.1 03/30/17 08:03 APTT 26 SECONDS (21-34) 03/30/17 08:03 - Constitutional Appears: Non-toxic, No Acute Distress, Chronically Ill - Head Exam Head Exam: ATRAUMATIC, NORMOCEPHALIC - Eye Exam Eye Exam: EOMI - ENT Exam ENT Exam: Mucous Membranes Moist - Neck Exam Neck Exam: Full ROM - Respiratory Exam Respiratory Exam: NORMAL BREATHING PATTERN. absent: Accessory Muscle Use, Respiratory Distress - Cardiovascular Exam Cardiovascular Exam: Tachycardia - GI/Abdominal Exam GI & Abdominal Exam: Soft. absent: Tenderness - Extremities Exam Additional comments: LLE, s/p BKA, dressing in place C/D/I - Neurological Exam Neurological Exam: Alert, Awake. absent: Oriented x3 Assessment and Plan - Assessment and Plan (Free Text) Assessment: 71F s/p L BKA, POD#2 -AM labs -pain control -leave dressing and knee immobilizer in place -Poor PO intake, hyponatremia, tachycardia, will start low rate NS -heparin for DVT prophylaxis -d/w attending Zemaitis PGY3
[2017-04-01] MEDS: Sodium Chloride 0.9% 1,000 ML IV SCH (12:51)
--- NOTE | 2017-04-01 13:12 | CP.PCM.PN ---
<Trevor Elkins - Last Filed: 04/02/17 11:00> Subjective - Date & Time of Evaluation Date of Evaluation: 04/01/17 Time of Evaluation: 13:10 - Subjective Subjective: Medicine Progress Note for Dr. Myrick HPI: Patient seen and examined at bedside. Family at bedside. More Alert and awake today. ROS Unattainable. Objective - Vital Signs/Intake and Output Vital Signs (last 24 hours): Temp Pulse Resp BP Pulse Ox 99.8 F H 103 H 18 103/53 L 96 04/01/17 08:06 04/01/17 11:02 04/01/17 08:06 04/01/17 11:02 04/01/17 08:06 - Medications Medications: Current Medications Acetaminophen (Tylenol 325mg Tab) 650 mg PO Q6 PRN PRN Reason: Pain, moderate (4-7) Last Admin: 03/28/17 13:21 Dose: 650 mg Acetaminophen (Tylenol 325 Mg Supp) 325 mg [place] Q6 PRN PRN Reason: Fever >100.4 F Last Admin: 03/31/17 09:36 Dose: 325 mg Brimonidine Tartrate (Alphagan 0.2% Opht) 1 ml OU TID [facility] Last Admin: 04/01/17 10:48 Dose: 1 drop Dextrose (Dextrose 50% Inj) 0 ml IV STAT PRN; Protocol PRN Reason: Hyglycemia Protocol Dextrose (Glutose 15) 0 gm PO ONCE PRN; Protocol PRN Reason: Hypoglycemia Protocol Epoetin Maxwell (Procrit) 10,000 unit IV TTS [facility] Last Admin: 03/31/17 13:16 Dose: 10,000 unit Ergocalciferol (Drisdol 50,000 Intl Units Cap) 1 cap PO Q7D [facility] Last Admin: 03/31/17 00:35 Dose: 1 cap Glucagon (Glucagen Diagnostic Kit) 0 mg IM STAT PRN; Protocol PRN Reason: Hypoglycemia Protocol Heparin Sodium (Porcine) (Heparin) 5,000 units SC Q12H [facility] Last Admin: 04/01/17 12:49 Dose: 5,000 units Hydromorphone HCl (Dilaudid) 0.5 mg IVP Q4H PRN PRN Reason: Pain, severe (8-10) Last Admin: 03/31/17 02:32 Dose: 0.5 mg Vancomycin/Sodium Chloride (Vancomycin 1 Gm/Ns 200 Ml) 1 gm in 200 mls @ 133.333 mls/hr IVPB TTS [facility] Last Admin: 03/31/17 14:51 Dose: 133.333 mls/hr Sodium Chloride (Sodium Chloride 0.9%) 1,000 mls @ 50 mls/hr IV .Q20H [facility] Last Admin: 04/01/17 12:51 Dose: 50 mls/hr Insulin Glargine (Lantus) 25 unit SC HS [facility] Last Admin: 03/16/17 22:27 Dose: Not Given Insulin Human Regular (Novolin R) 0 unit SC ACHS [facility] PRN Reason: Protocol Last Admin: 04/01/17 12:50 Dose: 12 unit Latanoprost (Xalatan Opht) 0.02 ml OU HS [facility] Last Admin: 03/30/17 22:19 Dose: Not Given Lisinopril (Zestril) 20 mg PO DAILY [facility] Last Admin: 04/01/17 10:48 Dose: Not Given Pantoprazole Sodium (Protonix Ec Tab) 40 mg PO DAILY [facility] Last Admin: 04/01/17 10:48 Dose: 40 mg Rosuvastatin Calcium (Crestor) 10 mg PO HS [facility] Last Admin: 03/31/17 21:52 Dose: Not Given Timolol Maleate (Timoptic 0.5% [facility]) 1 drop OU BID [facility] Last Admin: 04/01/17 10:48 Dose: 1 drop Vitamin B Complex/Vit C/Folic Acid (Nephro-Kevin) 1 tab PO 0800 [facility] Last Admin: 04/01/17 08:57 Dose: 1 tab - Labs Labs: 03/31/17 10:34 03/31/17 10:34 PT 12.0 SECONDS (9.7-12.2) 03/30/17 08:03 INR 1.1 03/30/17 08:03 APTT 26 SECONDS (21-34) 03/30/17 08:03 - Additional Findings Additional findings: - Constitutional Appears: Chronically Ill - Head Exam Head Exam: ATRAUMATIC, NORMAL INSPECTION, NORMOCEPHALIC - Eye Exam Eye Exam: EOMI Pupil Exam: NORMAL ACCOMODATION - ENT Exam ENT Exam: Mucous Membranes Moist - Respiratory Exam Respiratory Exam: Clear to Ausculation Bilateral, NORMAL BREATHING PATTERN - Cardiovascular Exam Cardiovascular Exam: REGULAR RHYTHM - GI/Abdominal Exam GI & Abdominal Exam: Soft, Normal Bowel Sounds. absent: Distended, Tenderness - Extremities Exam Additional comments: status post L. BKA. Dressing and brace in place - Skin Skin Exam: Dry, Intact, Normal Color, Warm Assessment and Plan - Assessment and Plan (Free Text) Assessment: Intermittent Altered Mental Status -likely secondary to poor glycemic control - Neurology on board (Dr. Aguirre) - CT head negative for acute infarction - Discontinued all pain medications, tyelnol prn Cardiac Comorbidties -CHF, HTN. PVD - Echo showed 61% LVEF 03/09/17 - Vascular surgery on board (Dr. Broussard) for PVD - Lisonopril 20mg PO QD - Crestor 10 mg PO HS - R femoral line placed in ICU has been removed S/P L. BKA - dressing changes per surgery - keep brace on Dyspnea - Patient has had prior episodes of respiratory distress in the past secondary to effusion. - S/P thoracentesis on 03/27: 900 cc of clear fluid removed from left lung - Most recent CXR 03/27: Decreased left pleural effusion. No pneumothorax. Stable small right pleural effusion. - O2 Sat of 100% on NC 5 L - BiPAP off ESRD on hemodialysis - Pt undergoes hemodialysis //Thu, will dialyze daily to resolve altered mentation - Multiple electrolyte abnormalities throughout this admission, monitor CMPs, magnesium and phosphorous daily - PICC line inserted by IR 03/23/17 now functional, R femoral line removed - Permacath removed by surgery - Ergocalcierol 1 capsule PO Q7D - Procrit - Vancomycin 1gram IVPB 3 times weeks post dialysis Type 2 Diabetes -poorly controlled - Accuchecks ACHS - Regular Insulin high dose protocol for coverahe - Lantus 25u SC HS - A1c of 8.9 02/18/17 Failure to thrive - Hx of dysphagia - GI consult on board ([place]) - As of 03/19/17 , GI did not recommend PEG placement due to patient's significant medical comorbidities - Soft diet - C diff neg (02/28) Anemia of chronic disease - Hgb stable. Cont to monitor - Procrit 10,000U IV on dialysis days - Ferrlecit 125mg IVPB TTS Peripheral vascular Disease -Low ext arterial duplex (02/04/17) -occlusion R post tib artery, 50-75% stenosis right mid popliteal & proximal anterior tib arteries -occlusion of left post tib artery, >75% stenosis left proximal ant tibial artery, 50-75% stenosis left distal SFA & proximal popliteal a. Prophylactic Measure - Protonix 40mg PO daily - Heparin 5000 U SC Q12 - Nephro-kevin vitamins - SCDs Planning on D/C patient to [place] on . No other updates at this time. <Benson Myrick Jr. - Last Filed: 04/04/17 14:20> Objective - Vital Signs/Intake and Output Vital Signs (last 24 hours): Temp Pulse Resp BP Pulse Ox 97.6 F 92 H 18 144/52 L 100 04/04/17 07:48 04/04/17 07:48 04/04/17 07:48 04/04/17 07:48 04/04/17 07:48 Intake and Output: 04/04/17 04/04/17 06:59 18:59 Intake Total 300 Balance 300 - Medications Medications: Current Medications Acetaminophen (Tylenol 325mg Tab) 650 mg PO Q6 PRN PRN Reason: Pain, moderate (4-7) Last Admin: 03/28/17 13:21 Dose: 650 mg Acetaminophen (Tylenol 325 Mg Supp) 325 mg [place] Q6 PRN PRN Reason: Fever >100.4 F Last Admin: 03/31/17 09:36 Dose: 325 mg Brimonidine Tartrate (Alphagan 0.2% Opht) 1 ml OU TID [facility] Last Admin: 04/04/17 13:04 Dose: 1 drop Dextrose (Dextrose 50% Inj) 0 ml IV STAT PRN; Protocol PRN Reason: Hyglycemia Protocol Last Admin: 04/04/17 06:35 Dose: 50 ml Dextrose (Glutose 15) 0 gm PO ONCE PRN; Protocol PRN Reason: Hypoglycemia Protocol Last Admin: 04/01/17 21:54 Dose: 15 gm Ergocalciferol (Drisdol 50,000 Intl Units Cap) 1 cap PO Q7D [facility] Last Admin: 03/31/17 00:35 Dose: 1 cap Glucagon (Glucagen Diagnostic Kit) 0 mg IM STAT PRN; Protocol PRN Reason: Hypoglycemia Protocol Hydromorphone HCl (Dilaudid) 0.5 mg IVP Q4H PRN PRN Reason: Pain, severe (8-10) Last Admin: 04/04/17 11:27 Dose: 0.5 mg Dextrose/Sodium Chloride (Dextrose 5%/0.45% Ns 1000 Ml) 1,000 mls @ 50 mls/hr IV .Q20H [facility] Last Admin: 04/04/17 13:04 Dose: 50 mls/hr Insulin Detemir (Levemir) 14 unit SC BID@0800,2200 [facility] Last Admin: 04/04/17 08:26 Dose: Not Given Insulin Glargine (Lantus) 25 unit SC HS [facility] Last Admin: 03/16/17 22:27 Dose: Not Given Insulin Human Regular (Novolin R) 9 unit SC AC [facility] Last Admin: 04/04/17 12:00 Dose: Not Given Latanoprost (Xalatan Opht) 0.02 ml OU HS [facility] Last Admin: 04/03/17 21:09 Dose: 0.02 ml Lisinopril (Zestril) 20 mg PO DAILY [facility] Last Admin: 04/04/17 13:08 Dose: 20 mg Pantoprazole Sodium (Protonix Ec Tab) 40 mg PO DAILY [facility] Last Admin: 04/04/17 13:09 Dose: Not Given Timolol Maleate (Timoptic 0.5% Ophth Soln) 1 drop OU BID [facility] Last Admin: 04/04/17 09:00 Dose: Not Given Vitamin B Complex/Vit C/Folic Acid (Nephro-Kevin) 1 tab PO 0800 [facility] Last Admin: 04/04/17 13:07 Dose: Not Given - Labs Labs: 04/04/17 10:21 04/04/17 10:21 PT 12.0 SECONDS (9.7-12.2) 03/30/17 08:03 INR 1.1 03/30/17 08:03 APTT 26 SECONDS (21-34) 03/30/17 08:03 Attending/Attestation - Attestation I have personally seen and examined this patient.: Yes I have fully participated in the care of the patient.: Yes I have reviewed all pertinent clinical information, including history, physical exam and plan: Yes Notes (Text): 04/04/17 14:20 Agree with resident note and plan of care
--- NOTE | 2017-04-01 16:54 | CP.PCM.PN ---
Subjective - Date & Time of Evaluation Date of Evaluation: 04/01/17 Time of Evaluation: 09:00 - Subjective Subjective: afeb wbc trending down Objective - Vital Signs/Intake and Output Vital Signs (last 24 hours): Temp Pulse Resp BP Pulse Ox 99.6 F 93 H 20 150/75 98 04/01/17 16:00 04/01/17 16:00 04/01/17 16:00 04/01/17 16:00 04/01/17 16:00 - Medications Medications: Current Medications Acetaminophen (Tylenol 325mg Tab) 650 mg PO Q6 PRN PRN Reason: Pain, moderate (4-7) Last Admin: 03/28/17 13:21 Dose: 650 mg Acetaminophen (Tylenol 325 Mg Supp) 325 mg DC Q6 PRN PRN Reason: Fever >100.4 F Last Admin: 03/31/17 09:36 Dose: 325 mg Brimonidine Tartrate (Alphagan 0.2% Opht) 1 ml OU TID [facility] Last Admin: 04/01/17 10:48 Dose: 1 drop Dextrose (Dextrose 50% Inj) 0 ml IV STAT PRN; Protocol PRN Reason: Hyglycemia Protocol Dextrose (Glutose 15) 0 gm PO ONCE PRN; Protocol PRN Reason: Hypoglycemia Protocol Epoetin Maxwell (Procrit) 10,000 unit IV TTS [facility] Last Admin: 03/31/17 13:16 Dose: 10,000 unit Ergocalciferol (Drisdol 50,000 Intl Units Cap) 1 cap PO Q7D [facility] Last Admin: 03/31/17 00:35 Dose: 1 cap Glucagon (Glucagen Diagnostic Kit) 0 mg IM STAT PRN; Protocol PRN Reason: Hypoglycemia Protocol Heparin Sodium (Porcine) (Heparin) 5,000 units SC Q12H [facility] Last Admin: 04/01/17 12:49 Dose: 5,000 units Hydromorphone HCl (Dilaudid) 0.5 mg IVP Q4H PRN PRN Reason: Pain, severe (8-10) Last Admin: 03/31/17 02:32 Dose: 0.5 mg Vancomycin/Sodium Chloride (Vancomycin 1 Gm/Ns 200 Ml) 1 gm in 200 mls @ 133.333 mls/hr IVPB TTS [facility] Last Admin: 03/31/17 14:51 Dose: 133.333 mls/hr Sodium Chloride (Sodium Chloride 0.9%) 1,000 mls @ 50 mls/hr IV .Q20H [facility] Last Admin: 04/01/17 12:51 Dose: 50 mls/hr Insulin Glargine (Lantus) 25 unit SC HS [facility] Last Admin: 03/16/17 22:27 Dose: Not Given Insulin Human Regular (Novolin R) 0 unit SC ACHS [facility] PRN Reason: Protocol Last Admin: 04/01/17 12:50 Dose: 12 unit Latanoprost (Xalatan Opht) 0.02 ml OU HS [facility] Last Admin: 03/30/17 22:19 Dose: Not Given Lisinopril (Zestril) 20 mg PO DAILY [facility] Last Admin: 04/01/17 10:48 Dose: Not Given Pantoprazole Sodium (Protonix Ec Tab) 40 mg PO DAILY [facility] Last Admin: 04/01/17 10:48 Dose: 40 mg Rosuvastatin Calcium (Crestor) 10 mg PO HS [facility] Last Admin: 03/31/17 21:52 Dose: Not Given Timolol Maleate (Timoptic 0.5% Oph Sol) 1 drop OU BID [facility] Last Admin: 04/01/17 10:48 Dose: 1 drop Vitamin B Complex/Vit C/Folic Acid (Nephro-Alonzo) 1 tab PO 0800 [facility] Last Admin: 04/01/17 08:57 Dose: 1 tab - Labs Labs: 03/31/17 10:34 03/31/17 10:34 PT 12.0 SECONDS (9.7-12.2) 03/30/17 08:03 INR 1.1 03/30/17 08:03 APTT 26 SECONDS (21-34) 03/30/17 08:03 - Constitutional Appears: Non-toxic, Chronically Ill - Head Exam Head Exam: NORMOCEPHALIC - Eye Exam Eye Exam: absent: Scleral icterus - ENT Exam ENT Exam: Normal External Ear Exam - Neck Exam Neck Exam: absent: Lymphadenopathy - Respiratory Exam Respiratory Exam: Decreased Breath Sounds - Cardiovascular Exam Cardiovascular Exam: REGULAR RHYTHM - Rectal Exam Rectal Exam: Deferred - Exam Exam: NORMAL INSPECTION - Extremities Exam Extremities Exam: Pedal Edema - Back Exam Back Exam: absent: CVA tenderness (L), CVA tenderness (R) - Neurological Exam Neurological Exam: Alert, Awake - Psychiatric Exam Psychiatric exam: Depressed - Skin Skin Exam: Dry Assessment and Plan (1) Change in mental status Status: Acute (2) End stage renal disease on dialysis Status: Acute (3) Heel ulcer Status: Acute (4) IDDM (insulin dependent diabetes mellitus) Status: Chronic - Assessment and Plan (Free Text) Assessment: cont iv vanco for OM left foot recent culture likely contaminant
[2017-04-01] MEDS: HYDROmorphone 0.5 mg/0.5 ml ISec IVP PRN (18:29)
[2017-04-01] MEDS: Dextrose 50% SYRINGE Inj (50 ml) IV PRN (22:09)
[2017-04-01] MEDS: Latanoprost 2.5 ml Opht Soln OU SCH (22:10)
[2017-04-01] MEDS ORDERED: Dextrose 50% SYRINGE Inj (50 ml) ONE (22:10)
--- NOTE | 2017-04-01 23:23 | CP.PCM.PN ---
Subjective - Date & Time of Evaluation Date of Evaluation: 04/01/17 Time of Evaluation: 14:00 - Subjective Subjective: SEEN ON RENAL F/U FEELS THE SAME .. NO CHANGE IN CLINICAL CONDITION ON HD T T S Objective - Vital Signs/Intake and Output Vital Signs (last 24 hours): Temp Pulse Resp BP Pulse Ox 99.6 F 89 20 118/69 98 04/01/17 16:00 04/01/17 18:35 04/01/17 16:00 04/01/17 18:35 04/01/17 16:00 - Medications Medications: Current Medications Acetaminophen (Tylenol 325mg Tab) 650 mg PO Q6 PRN PRN Reason: Pain, moderate (4-7) Last Admin: 03/28/17 13:21 Dose: 650 mg Acetaminophen (Tylenol 325 Mg Supp) 325 mg [place] Q6 PRN PRN Reason: Fever >100.4 F Last Admin: 03/31/17 09:36 Dose: 325 mg Brimonidine Tartrate (Alphagan 0.2% Opht) 1 ml OU TID [facility] Last Admin: 04/01/17 18:32 Dose: 1 drop Dextrose (Dextrose 50% Inj) 0 ml IV STAT PRN; Protocol PRN Reason: Hyglycemia Protocol Last Admin: 04/01/17 22:09 Dose: 50 ml Dextrose (Glutose 15) 0 gm PO ONCE PRN; Protocol PRN Reason: Hypoglycemia Protocol Last Admin: 04/01/17 21:54 Dose: 15 gm Epoetin Maxwell (Procrit) 10,000 unit IV TTS [facility] Last Admin: 03/31/17 13:16 Dose: 10,000 unit Ergocalciferol (Drisdol 50,000 Intl Units Cap) 1 cap PO Q7D [facility] Last Admin: 03/31/17 00:35 Dose: 1 cap Glucagon (Glucagen Diagnostic Kit) 0 mg IM STAT PRN; Protocol PRN Reason: Hypoglycemia Protocol Heparin Sodium (Porcine) (Heparin) 5,000 units SC Q12H [facility] Last Admin: 04/01/17 12:49 Dose: 5,000 units Hydromorphone HCl (Dilaudid) 0.5 mg IVP Q4H PRN PRN Reason: Pain, severe (8-10) Last Admin: 04/01/17 18:29 Dose: 0.5 mg Vancomycin/Sodium Chloride (Vancomycin 1 Gm/Ns 200 Ml) 1 gm in 200 mls @ 133.333 mls/hr IVPB TTS [facility] Last Admin: 03/31/17 14:51 Dose: 133.333 mls/hr Sodium Chloride (Sodium Chloride 0.9%) 1,000 mls @ 50 mls/hr IV .Q20H [facility] Last Admin: 04/01/17 12:51 Dose: 50 mls/hr Insulin Glargine (Lantus) 25 unit SC HS [facility] Last Admin: 03/16/17 22:27 Dose: Not Given Insulin Human Regular (Novolin R) 0 unit SC ACHS [facility] PRN Reason: Protocol Last Admin: 04/01/17 22:10 Dose: Not Given Latanoprost (Xalatan Opht) 0.02 ml OU HS [facility] Last Admin: 04/01/17 22:10 Dose: Not Given Lisinopril (Zestril) 20 mg PO DAILY [facility] Last Admin: 04/01/17 10:48 Dose: Not Given Pantoprazole Sodium (Protonix Ec Tab) 40 mg PO DAILY [facility] Last Admin: 04/01/17 10:48 Dose: 40 mg Rosuvastatin Calcium (Crestor) 10 mg PO HS [facility] Last Admin: 04/01/17 22:10 Dose: Not Given Timolol Maleate (Timoptic 0.5% [facility]) 1 drop OU BID [facility] Last Admin: 04/01/17 18:31 Dose: 1 drop Vitamin B Complex/Vit C/Folic Acid (Nephro-Alonzo) 1 tab PO 0800 [facility] Last Admin: 04/01/17 08:57 Dose: 1 tab - Labs Labs: 03/31/17 10:34 03/31/17 10:34 PT 12.0 SECONDS (9.7-12.2) 03/30/17 08:03 INR 1.1 03/30/17 08:03 APTT 26 SECONDS (21-34) 03/30/17 08:03 Assessment and Plan - Assessment and Plan (Free Text) Assessment: ESRD ON HD T T S .. TO BE C/O ANEMIA OF CKD .. H/H STABLE MMP P : C/O CURRENT CARE C/O PRESENT MANAGEMENT
[2017-04-02] MEDS: Sodium Chloride 0.9% 1,000 ML IV SCH (08:15)
[2017-04-02] MEDS: HYDROmorphone 0.5 mg/0.5 ml ISec IVP PRN ×2 (08:21→20:53)
[2017-04-02] MEDS: Multivitamin Vitamin B Complex (Nephro-Vite) Tab PO SCH (08:24)
[2017-04-02] MEDS: (Novolin R) Insulin Human Regular 100 units/ml vial SC SCH ×5 (08:37→21:44)
--- NOTE | 2017-04-02 09:07 | CP.PCM.DIS ---
Provider - Provider Date of Admission: 02/18/17 06:22 Attending physician: Benson Myrick Jr, MD Primary care physician: Ramez Consults: ID: Amish Pods: DenBlebharathi Neuro: A. Carla Vascular: Bobo GI: Tepler Pulm: Alvaro Time Spent in preparation of Discharge (in minutes): 45 Diagnosis - Discharge Diagnosis (1) S/P BKA (below knee amputation) Status: Acute Priority: High (2) Change in mental status Status: Chronic Priority: Medium (3) End stage renal disease on dialysis Status: Chronic Priority: High (4) Hyperglycemia Status: Chronic Priority: High (5) Peripheral vascular disease Status: Acute (6) DM2 (diabetes mellitus, type 2) Status: Chronic Priority: High Hospital Course - Lab Results Lab Results: Micro Results 03/27/17 10:30 Pleural Fluid Gram Stain - Final 03/27/17 10:30 Pleural Fluid Anaerobic Culture - Final NO ANAEROBES ISOLATED. 03/27/17 10:30 Pleural Fluid Body Fluid Culture - Final No growth. 03/27/17 10:30 Pleural Fluid Fungal Culture - Preliminary 03/02/17 12:00 Other: Please Indicate Mycobacterial Culture - Preliminary 03/29/17 21:08 Naris MRSA Culture - Final MRSA NOT DETECTED 03/02/17 12:00 Pleural Fluid Gram Stain - Final 03/02/17 12:00 Pleural Fluid Anaerobic Culture - Final NO ANAEROBES ISOLATED. 03/02/17 12:00 Pleural Fluid Body Fluid Culture - Final No growth. 03/02/17 12:00 Pleural Fluid Fungal Culture - Final NO FUNGUS GROWTH IN 4 WEEKS. 03/25/17 18:00 Blood Blood Culture - Final NO GROWTH AFTER 5 DAYS 03/25/17 18:00 Blood Gram Stain - Final TEST NOT PERFORMED 03/25/17 18:00 Blood Blood Culture - Final NO GROWTH AFTER 5 DAYS 03/25/17 18:00 Blood Gram Stain - Final TEST NOT PERFORMED 03/27/17 08:00 Foot - Left Gram Stain - Final 03/27/17 08:00 Foot - Left Wound Culture - Final Enterobacter Cloacae Ssp Cloac 03/25/17 16:00 Naris MRSA Culture (Admit) - Final MRSA NOT DETECTED 03/09/17 21:15 Blood-Venous Blood Culture - Final NO GROWTH AFTER 5 DAYS 03/09/17 21:15 Blood-Venous Gram Stain - Final TEST NOT PERFORMED 03/09/17 21:30 Blood-Venous Blood Culture - Final NO GROWTH AFTER 5 DAYS 03/09/17 21:30 Blood-Venous Gram Stain - Final TEST NOT PERFORMED 03/01/17 08:15 Blood-Venous Blood Culture - Final Coagulase Neg Staphylococcus 03/01/17 08:15 Blood-Venous Gram Stain - Final 03/01/17 08:30 Blood-Venous S.aureus & Coag-Neg Staph PNA FISH - Final 03/01/17 08:30 Blood-Venous Blood Culture - Final Coagulase Neg Staphylococcus 03/01/17 08:30 Blood-Venous Gram Stain - Final 02/27/17 08:00 Foot - Left Gram Stain - Final 02/27/17 08:00 Foot - Left Wound Culture - Final Enterobacter Cloacae Ssp Cloac Vancomycin Resistant E.faecium 02/18/17 05:19 Blood Blood Culture - Final NO GROWTH AFTER 5 DAYS 02/18/17 05:19 Blood Gram Stain - Final TEST NOT PERFORMED 02/18/17 05:19 Blood Blood Culture - Final NO GROWTH AFTER 5 DAYS 02/18/17 05:19 Blood Gram Stain - Final TEST NOT PERFORMED 02/18/17 20:36 Foot - Left Gram Stain - Final 02/18/17 20:36 Foot - Left Wound Culture - Final Serratia Marcescens Vancomycin Resistant E.faecium Most Recent Lab Values WBC 8.0 K/uL (4.8-10.8) 03/31/17 10:34 RBC 3.02 Mil/uL (3.80-5.20) L 03/31/17 10:34 Hgb 9.2 g/dL (11.0-16.0) L 03/31/17 10:34 Hct 29.5 % (34.0-47.0) L 03/31/17 10:34 MCV 97.5 fL (81.0-99.0) D 03/31/17 10:34 MCH 30.5 pg (27.0-31.0) 03/31/17 10:34 MCHC 31.3 g/dL (33.0-37.0) L 03/31/17 10:34 RDW 22.7 % (11.5-14.5) H 03/31/17 10:34 Plt Count 235 K/uL (130-400) 03/31/17 10:34 MPV 8.2 fL (7.2-11.7) 03/31/17 10:34 Neut % (Auto) 84.8 % (50.0-75.0) H 03/30/17 08:03 Lymph % (Auto) 7.1 % (20.0-40.0) L 03/30/17 08:03 Cheyenne % (Auto) 7.7 % (0.0-10.0) 03/30/17 08:03 Eos % (Auto) 0.1 % (0.0-4.0) 03/30/17 08:03 Baso % (Auto) 0.3 % (0.0-2.0) 03/30/17 08:03 Neut # 13.1 K/uL (1.8-7.0) H 03/30/17 08:03 Lymph # 1.1 K/uL (1.0-4.3) 03/30/17 08:03 Cheyenne # 1.2 K/uL (0.0-0.8) H 03/30/17 08:03 Eos # 0.0 K/uL (0.0-0.7) 03/30/17 08:03 Baso # 0.0 K/uL (0.0-0.2) 03/30/17 08:03 Neutrophils % (Manual) 95 % (50-75) H 03/30/17 08:03 Band Neutrophils % 1 % (0-2) 03/30/17 08:03 Lymphocytes % (Manual) 2 % (20-40) L 03/30/17 08:03 Reactive Lymphs % 2 % (0-0) H 03/12/17 09:55 Monocytes % (Manual) 2 % (0-10) 03/30/17 08:03 Eosinophils % (Manual) 1 % (0-4) 03/19/17 10:56 Basophils % (Manual) 1 % (0-2) 03/10/17 10:08 Nucleated RBC % 1 % (0-0) H 02/25/17 06:54 Toxic Granulation Present 03/29/17 06:45 Platelet Estimate Normal (NORMAL) 03/30/17 08:03 Large Platelets Present 02/28/17 09:58 Polychromasia Slight 03/30/17 08:03 Hypochromasia (manual) Slight 03/30/17 08:03 Poikilocytosis (manual Slight 03/29/17 06:45 Basophilic Stippling Slight 03/19/17 10:56 Anisocytosis (manual) Moderate 03/30/17 08:03 Microcytosis (manual) Slight 03/27/17 06:04 Macrocytosis (manual) Slight 03/30/17 08:03 Spherocytes Slight 03/14/17 09:32 Target Cells Slight 03/29/17 06:45 Tear Drop Cells Slight 03/21/17 09:59 Ovalocytes Slight 03/21/17 09:59 Karen Cells Slight 03/29/17 06:45 Schistocytes Slight 03/14/17 09:32 PT 12.0 SECONDS (9.7-12.2) 03/30/17 08:03 INR 1.1 03/30/17 08:03 APTT 26 SECONDS (21-34) 03/30/17 08:03 Puncture Site Rra 03/30/17 13:19 pCO2 36 mm/Hg (35-45) 03/30/17 13:19 pO2 107 mm/Hg (80-100) H 03/30/17 13:19 HCO3 28.0 mmol/L (21-28) 03/30/17 13:19 ABG pH 7.49 (7.35-7.45) H 03/30/17 13:19 ABG Total CO2 28.5 mmol/L (22-28) H 03/30/17 13:19 ABG O2 Saturation 99.3 % (95-98) H 03/30/17 13:19 ABG Base Excess 3.9 mmol/L (-2.0-3.0) H 03/30/17 13:19 ABG Hemoglobin 8.5 g/dL (11.7-17.4) L 03/30/17 13:19 ABG Carboxyhemoglobin 2.0 % (0.5-1.5) H 03/30/17 13:19 POC ABG HHb (Measured) 0.7 % (0.0-5.0) 03/30/17 13:19 ABG Methemoglobin 0.9 % (0.0-3.0) 03/30/17 13:19 Joey Test Pos 03/30/17 13:19 ABG Potassium 3.8 mmol/L (3.6-5.2) 03/27/17 05:10 VBG pH 7.41 (7.32-7.43) 03/01/17 07:39 VBG pCO2 42 mmHg (40-60) 03/01/17 07:39 VBG HCO3 26.3 mmol/L 03/01/17 07:39 VBG Total CO2 27.9 mmol/L (22-28) 03/01/17 07:39 VBG O2 Sat (Calc) 98.8 % (40-65) H 03/01/17 07:39 VBG Base Excess 1.7 mmol/L (0.0-2.0) 03/01/17 07:39 VBG Potassium 3.8 mmol/L (3.6-5.2) 03/01/17 07:39 A-a O2 Difference 11.0 mm/Hg 03/01/17 08:53 Respiratory Index 0.1 03/01/17 08:53 Hgb O2 Saturation 96.4 % (95.0-98.0) 03/30/17 13:19 Sodium 134.0 mmol/l (132-148) 03/27/17 05:10 Chloride 97.0 mmol/L (98-107) L 03/27/17 05:10 Glucose 232 mg/dl (65-105) H 03/27/17 05:10 Lactate 1.1 mmol/L (0.7-2.1) 03/27/17 05:10 Liter Flow 3.0 03/30/17 13:19 FiO2 27.0 % 03/01/17 08:53 Sodium 128 mmol/L (132-148) L 03/31/17 10:34 Potassium 5.1 mmol/L (3.6-5.2) 03/31/17 10:34 Chloride 96 mmol/L (98-107) L 03/31/17 10:34 Carbon Dioxide 15 mmol/L (22-30) L 03/31/17 10:34 Anion Gap 22 (10-20) H 03/31/17 10:34 BUN 39 mg/dL (7-17) H 03/31/17 10:34 Creatinine 2.2 mg/dL (0.7-1.2) H 03/31/17 10:34 Est GFR ( Amer) 27 03/31/17 10:34 Est GFR (Non-Af Amer) 22 03/31/17 10:34 POC Glucose (mg/dL) 319 mg/dL (65-110) H 04/02/17 06:10 Random Glucose 331 mg/dL (65-105) H 03/31/17 10:34 Hemoglobin A1c 8.9 % (4.2-6.5) H D 02/18/17 05:30 Lactic Acid 1.0 mmol/L (0.7-2.1) 03/05/17 11:02 Calcium 6.9 mg/dl (8.6-10.4) L 03/31/17 10:34 Phosphorus 3.7 mg/dL (2.5-4.5) 03/30/17 08:03 Magnesium 2.0 mg/dL (1.6-2.3) 03/30/17 08:03 Total Bilirubin 0.7 mg/dL (0.2-1.3) 03/31/17 10:34 AST 22 U/L (14-36) 03/31/17 10:34 ALT 28 U/L (9-52) 03/31/17 10:34 Alkaline Phosphatase 227 U/L (38-126) H D 03/31/17 10:34 Total Protein 4.3 g/dL (6.3-8.3) L 03/31/17 10:34 Albumin 2.2 g/dL (3.5-5.0) L 03/31/17 10:34 Globulin 2.2 gm/dL (2.2-3.9) 03/31/17 10:34 Albumin/Globulin Ratio 1.0 (1.0-2.1) 03/31/17 10:34 Triglycerides 134 mg/dL (0-149) 02/18/17 05:30 Cholesterol 157 mg/dL (0-199) 02/18/17 05:30 LDL Cholesterol Direct 62 mg/dL (0-129) 02/18/17 05:30 HDL Cholesterol 67 mg/dL (30-70) 02/18/17 05:30 Procalcitonin 3.50 NG/ML (0.19-0.49) H 03/25/17 15:04 Arterial Blood Potassium 3.8 mmol/L (3.6-5.2) 03/27/17 05:10 Venous Blood Potassium 3.8 mmol/L (3.6-5.2) 03/01/17 07:39 Fluid Source Pleural/thoracentesi 03/27/17 10:09 Fluid Appearance Clear (CLEAR) 03/27/17 10:09 Fluid WBC 39.0 /mm3 (0.0-300.0) 03/27/17 10:09 Fluid RBC 28.0 /mm3 (0.0-0.0) H 03/27/17 10:09 Fluid Tot Cell Count 100 (0-0) H 03/27/17 10:09 Fluid Neutrophils 10.0 % (0-0) H 03/27/17 10:09 Fluid Lymphocytes 87.0 % (0-0) H 03/27/17 10:09 Fld Monocyte/Macrophag 3 % (0-0) H 03/27/17 10:09 Fluid Diff Path Review 03/27/17 10:09 Fluid Comment 03/27/17 10:09 Pleural Total Protein <3.0 g/dL 03/27/17 10:09 Pleural LDH 32 U/L 03/27/17 10:09 Stool Sodium TNP 03/01/17 09:03 Stool Potassium TNP 03/01/17 09:03 Stool Chloride TNP 03/01/17 09:03 Stool Occult Blood Positive (NEGATIVE) H 02/26/17 16:55 Stool Leukocytes, Qual Negative (NEGATIVE) 03/01/17 Unknown C. difficile Ag & Toxin Negative (NEGATIVE) 03/27/17 09:00 Blood Type B POSITIVE 03/30/17 08:03 Antibody Screen Negative 03/30/17 08:03 - Hospital Course Hospital Course: On Admission: This is a 71 year old female with PMHx ESRD (dialysis TTS), CHF, HTN, DM2, PVD, depression, anemia of chronic disease, chronic low back pain, glaucoma who presents this morning with altered mental status. Patient's last known well time was yesterday 02/17/17 before 5PM. Per , patient normally gets very fatigued and does not behave like usual after dialysis. Patient's baseline is such where she normally speaks properly. The stated that he left the patient alone, but at around 4AM this morning, the stated that he noticed that the patient was foaming at the mouth and gasping for air. The states that he measured her blood glucose and found it at 47. The stated that he proceeded to call the ambulance and states that the patient was given D50 with new glucose reading of 258. ROS unable to ascertain because the patient is unresponsive to stimuli. Discharge Exam - Head Exam Head Exam: NORMOCEPHALIC - Additional Findings Additional findings: - Constitutional Appears: Chronically Ill - Head Exam Head Exam: ATRAUMATIC, NORMAL INSPECTION, NORMOCEPHALIC - Eye Exam Eye Exam: EOMI Pupil Exam: NORMAL ACCOMODATION - ENT Exam ENT Exam: Mucous Membranes Moist - Respiratory Exam Respiratory Exam: Clear to Ausculation Bilateral, NORMAL BREATHING PATTERN - Cardiovascular Exam Cardiovascular Exam: REGULAR RHYTHM - GI/Abdominal Exam GI & Abdominal Exam: Soft, Normal Bowel Sounds. absent: Distended, Tenderness - Extremities Exam Additional comments: status post L. BKA. Dressing and brace in place - Skin Skin Exam: Dry, Intact, Normal Color, Warm Discharge Plan - Discharge Medications Prescriptions: Metronidazole [Flagyl] 500 mg PO Q8H 10 Days #30 tablet - Follow Up Plan Condition: CRITICAL Disposition: Trans to Other Acute Care Hosp Instructions: Altered Mental Status (GEN) Additional Instructions: Patient is stable and clear for D/C to [facility] Please take medications as directed Please follow up with Dr. Myrick. He will come see you while you are in the [facility]. Please come back to the ED if symptoms worsen.
--- NOTE | 2017-04-02 09:08 | CP.PCM.PN ---
Subjective - Date & Time of Evaluation Date of Evaluation: 04/02/17 Time of Evaluation: 07:40 - Subjective Subjective: General Surgery Pt S&E, NAEO per nursing. Still with poor PO intake. Objective - Vital Signs/Intake and Output Vital Signs (last 24 hours): Temp Pulse Resp BP Pulse Ox 98.3 F 90 18 111/55 L 100 04/02/17 08:09 04/02/17 08:09 04/02/17 08:09 04/02/17 08:09 04/02/17 08:09 - Medications Medications: Current Medications Acetaminophen (Tylenol 325mg Tab) 650 mg PO Q6 PRN PRN Reason: Pain, moderate (4-7) Last Admin: 03/28/17 13:21 Dose: 650 mg Acetaminophen (Tylenol 325 Mg Supp) 325 mg WA Q6 PRN PRN Reason: Fever >100.4 F Last Admin: 03/31/17 09:36 Dose: 325 mg Brimonidine Tartrate (Alphagan 0.2% Opht) 1 ml OU TID [facility] Last Admin: 04/01/17 18:32 Dose: 1 drop Dextrose (Dextrose 50% Inj) 0 ml IV STAT PRN; Protocol PRN Reason: Hyglycemia Protocol Last Admin: 04/01/17 22:09 Dose: 50 ml Dextrose (Glutose 15) 0 gm PO ONCE PRN; Protocol PRN Reason: Hypoglycemia Protocol Last Admin: 04/01/17 21:54 Dose: 15 gm Epoetin Maxwell (Procrit) 10,000 unit IV TTS [facility] Last Admin: 03/31/17 13:16 Dose: 10,000 unit Ergocalciferol (Drisdol 50,000 Intl Units Cap) 1 cap PO Q7D [facility] Last Admin: 03/31/17 00:35 Dose: 1 cap Glucagon (Glucagen Diagnostic Kit) 0 mg IM STAT PRN; Protocol PRN Reason: Hypoglycemia Protocol Heparin Sodium (Porcine) (Heparin) 5,000 units SC Q12H [facility] Last Admin: 04/02/17 00:09 Dose: 5,000 units Hydromorphone HCl (Dilaudid) 0.5 mg IVP Q4H PRN PRN Reason: Pain, severe (8-10) Last Admin: 04/02/17 08:21 Dose: 0.5 mg Vancomycin/Sodium Chloride (Vancomycin 1 Gm/Ns 200 Ml) 1 gm in 200 mls @ 133.333 mls/hr IVPB TTS [facility] Last Admin: 03/31/17 14:51 Dose: 133.333 mls/hr Sodium Chloride (Sodium Chloride 0.9%) 1,000 mls @ 50 mls/hr IV .Q20H [facility] Last Admin: 04/01/17 12:51 Dose: 50 mls/hr Insulin Glargine (Lantus) 25 unit SC HS [facility] Last Admin: 03/16/17 22:27 Dose: Not Given Insulin Human Regular (Novolin R) 0 unit SC ACHS [facility] PRN Reason: Protocol Last Admin: 04/02/17 08:37 Dose: Not Given Latanoprost (Xalatan Opht) 0.02 ml OU HS [facility] Last Admin: 04/01/17 22:10 Dose: Not Given Lisinopril (Zestril) 20 mg PO DAILY [facility] Last Admin: 04/01/17 10:48 Dose: Not Given Pantoprazole Sodium (Protonix Ec Tab) 40 mg PO DAILY [facility] Last Admin: 04/01/17 10:48 Dose: 40 mg Rosuvastatin Calcium (Crestor) 10 mg PO HS [facility] Last Admin: 04/01/17 22:10 Dose: Not Given Timolol Maleate (Timoptic 0.5% Oph Soln) 1 drop OU BID [facility] Last Admin: 04/01/17 18:31 Dose: 1 drop Vitamin B Complex/Vit C/Folic Acid (Nephro-Alonzo) 1 tab PO 0800 [facility] Last Admin: 04/02/17 08:24 Dose: 1 tab - Labs Labs: 03/31/17 10:34 03/31/17 10:34 PT 12.0 SECONDS (9.7-12.2) 03/30/17 08:03 INR 1.1 03/30/17 08:03 APTT 26 SECONDS (21-34) 03/30/17 08:03 - Constitutional Appears: Non-toxic, No Acute Distress - Head Exam Head Exam: ATRAUMATIC, NORMOCEPHALIC - Respiratory Exam Respiratory Exam: NORMAL BREATHING PATTERN. absent: Respiratory Distress - GI/Abdominal Exam GI & Abdominal Exam: Soft. absent: Distended - Extremities Exam Additional comments: L BKA, dressing in place C/D/I - Skin Skin Exam: Dry, Warm Assessment and Plan - Assessment and Plan (Free Text) Assessment: 71F s/p L BKA, POD#3 Plan: Pain control Leave dressing and knee immobilizer in place Cont DVT prophylaxis D/W Dr. Bobo Lerner PGY4
[2017-04-02] MEDS: Vancomycin 1 gm/NS 200 ml 1 GM/200 ML BAG IVPB SCH ×2 (09:34→14:29)
[2017-04-02] MEDS: Pantoprazole 40 mg EC Tab PO SCH (09:34)
[2017-04-02] MEDS: Brimonidine 0.2% Opth Sol (5ml) OU SCH ×3 (09:34→17:22)
[2017-04-02 09:48] LABS: HEMATOCRIT 29.8 % (34.0-47.0); MEAN CELL VOLUME 98.4 fL (81.0-99.0); MEAN CORPUSCULAR HEMOGLOBIN 30.6 pg (27.0-31.0); MEAN CORPUSCULAR HGB CONC 31.1 g/dL (33.0-37.0); MEAN PLATELET VOLUME 8.4 fL (7.2-11.7); RED CELL DISTRIBUTION WIDTH 21.6 % (11.5-14.5)
[2017-04-02 09:51] LABS: WHITE BLOOD COUNT 13.5 K/uL (4.8-10.8)
[2017-04-02 09:59] LABS: POTASSIUM 4.5 mmol/L (3.6-5.2)
[2017-04-02 10:02] LABS: CALCIUM 6.8 mg/dl (8.6-10.4)
[2017-04-02] MEDS: Epoetin Alfa 10,000 unit/ml Dialysis IV SCH (12:14)
[2017-04-03] MEDS: Multivitamin Vitamin B Complex (Nephro-Vite) Tab PO SCH (09:54)
[2017-04-03] MEDS: Pantoprazole 40 mg EC Tab PO SCH (09:55)
[2017-04-03] MEDS: Insulin Detemir 100 units/ml Vial (Levemir) SC SCH ×2 (09:55→21:08)
[2017-04-03] MEDS: Brimonidine 0.2% Opth Sol (5ml) OU SCH ×3 (09:57→17:57)
[2017-04-03] MEDS ORDERED: (Novolin R) Insulin Human Regular 100 units/ml vial SC SCH (16:30)
[2017-04-03] MEDS: (Novolin R) Insulin Human Regular 100 units/ml vial SC SCH (17:58)
[2017-04-03] MEDS: HYDROmorphone 0.5 mg/0.5 ml ISec IVP PRN (17:58)
--- NOTE | 2017-04-03 18:41 | CP.PCM.PN ---
Subjective - Date & Time of Evaluation Date of Evaluation: 04/03/17 Time of Evaluation: 14:00 - Subjective Subjective: SEEN ON RENAL F/U PERSISTANTLY ASKING FOR WATER ON HD T T S BEING D/C TO [facility] Objective - Vital Signs/Intake and Output Vital Signs (last 24 hours): Temp Pulse Resp BP Pulse Ox 98.4 F 97 H 20 137/68 97 04/03/17 15:28 04/03/17 15:28 04/03/17 15:28 04/03/17 15:28 04/03/17 15:28 Intake and Output: 04/03/17 04/03/17 06:59 18:59 Intake Total 680 240 Balance 680 240 - Medications Medications: Current Medications Acetaminophen (Tylenol 325mg Tab) 650 mg PO Q6 PRN PRN Reason: Pain, moderate (4-7) Last Admin: 03/28/17 13:21 Dose: 650 mg Acetaminophen (Tylenol 325 Mg Supp) 325 mg SC Q6 PRN PRN Reason: Fever >100.4 F Last Admin: 03/31/17 09:36 Dose: 325 mg Brimonidine Tartrate (Alphagan 0.2% Opht) 1 ml OU TID [facility] Last Admin: 04/03/17 17:57 Dose: 1 drop Dextrose (Dextrose 50% Inj) 0 ml IV STAT PRN; Protocol PRN Reason: Hyglycemia Protocol Last Admin: 04/01/17 22:09 Dose: 50 ml Dextrose (Glutose 15) 0 gm PO ONCE PRN; Protocol PRN Reason: Hypoglycemia Protocol Last Admin: 04/01/17 21:54 Dose: 15 gm Epoetin Maxwell (Procrit) 10,000 unit IV TTS [facility] Last Admin: 04/02/17 12:14 Dose: 10,000 unit Ergocalciferol (Drisdol 50,000 Intl Units Cap) 1 cap PO Q7D [facility] Last Admin: 03/31/17 00:35 Dose: 1 cap Glucagon (Glucagen Diagnostic Kit) 0 mg IM STAT PRN; Protocol PRN Reason: Hypoglycemia Protocol Heparin Sodium (Porcine) (Heparin) 5,000 units SC Q12H [facility] Last Admin: 04/03/17 13:10 Dose: 5,000 units Hydromorphone HCl (Dilaudid) 0.5 mg IVP Q4H PRN PRN Reason: Pain, severe (8-10) Last Admin: 04/03/17 17:58 Dose: 0.5 mg Insulin Detemir (Levemir) 14 unit SC BID@0800,2200 [facility] Last Admin: 04/03/17 09:55 Dose: 14 unit Insulin Glargine (Lantus) 25 unit SC HS [facility] Last Admin: 03/16/17 22:27 Dose: Not Given Insulin Human Regular (Novolin R) 9 unit SC AC [facility] Last Admin: 04/03/17 17:58 Dose: 9 unit Latanoprost (Xalatan Opht) 0.02 ml OU HS [facility] Last Admin: 04/01/17 22:10 Dose: Not Given Lisinopril (Zestril) 20 mg PO DAILY [facility] Last Admin: 04/03/17 09:55 Dose: 20 mg Pantoprazole Sodium (Protonix Ec Tab) 40 mg PO DAILY [facility] Last Admin: 04/03/17 09:55 Dose: 40 mg Rosuvastatin Calcium (Crestor) 10 mg PO HS [facility] Last Admin: 04/02/17 21:08 Dose: 10 mg Timolol Maleate (Timoptic 0.5% [facility]) 1 drop OU BID [facility] Last Admin: 04/03/17 09:56 Dose: 1 drop Vitamin B Complex/Vit C/Folic Acid (Nephro-Alonzo) 1 tab PO 0800 [facility] Last Admin: 04/03/17 09:54 Dose: 1 tab - Labs Labs: 04/02/17 09:40 04/02/17 09:40 PT 12.0 SECONDS (9.7-12.2) 03/30/17 08:03 INR 1.1 03/30/17 08:03 APTT 26 SECONDS (21-34) 03/30/17 08:03 Assessment and Plan - Assessment and Plan (Free Text) Assessment: ESRD ON HD T T S ANEMIA OF CKD .. H/H STABLE P" C/O CURRENT CARE WILL GET HER OUT PT HD AT [facility] WILL F/U AN OUT PT
[2017-04-03] MEDS: Latanoprost 2.5 ml Opht Soln OU SCH (21:09)
[2017-04-03] MEDS ORDERED: Insulin Detemir 100 units/ml Vial (Levemir) SC SCH (22:00)
--- NOTE | 2017-04-04 00:36 | CP.PCM.PN ---
<Octaviano Noyola - Last Filed: 04/04/17 00:34> Subjective - Date & Time of Evaluation Date of Evaluation: 04/04/17 Time of Evaluation: 00:34 - Subjective Subjective: Medicine Progress Note for Dr. Myrick HPI: Patient seen and examined at bedside. Family at bedside. More Alert and awake today. ROS Unattainable. Objective - Vital Signs/Intake and Output Vital Signs (last 24 hours): Temp Pulse Resp BP Pulse Ox 98.4 F 97 H 20 137/68 97 04/03/17 15:28 04/03/17 15:28 04/03/17 15:28 04/03/17 15:28 04/03/17 15:28 Intake and Output: 04/03/17 04/04/17 18:59 06:59 Intake Total 240 Balance 240 - Medications Medications: Current Medications Acetaminophen (Tylenol 325mg Tab) 650 mg PO Q6 PRN PRN Reason: Pain, moderate (4-7) Last Admin: 03/28/17 13:21 Dose: 650 mg Acetaminophen (Tylenol 325 Mg Supp) 325 mg [place] Q6 PRN PRN Reason: Fever >100.4 F Last Admin: 03/31/17 09:36 Dose: 325 mg Brimonidine Tartrate (Alphagan 0.2% Opht) 1 ml OU TID [facility] Last Admin: 04/03/17 17:57 Dose: 1 drop Dextrose (Dextrose 50% Inj) 0 ml IV STAT PRN; Protocol PRN Reason: Hyglycemia Protocol Last Admin: 04/01/17 22:09 Dose: 50 ml Dextrose (Glutose 15) 0 gm PO ONCE PRN; Protocol PRN Reason: Hypoglycemia Protocol Last Admin: 04/01/17 21:54 Dose: 15 gm Epoetin Maxwell (Procrit) 10,000 unit IV TTS [facility] Last Admin: 04/02/17 12:14 Dose: 10,000 unit Ergocalciferol (Drisdol 50,000 Intl Units Cap) 1 cap PO Q7D [facility] Last Admin: 03/31/17 00:35 Dose: 1 cap Glucagon (Glucagen Diagnostic Kit) 0 mg IM STAT PRN; Protocol PRN Reason: Hypoglycemia Protocol Heparin Sodium (Porcine) (Heparin) 5,000 units SC Q12H [facility] Last Admin: 04/04/17 00:06 Dose: 5,000 units Hydromorphone HCl (Dilaudid) 0.5 mg IVP Q4H PRN PRN Reason: Pain, severe (8-10) Last Admin: 04/03/17 17:58 Dose: 0.5 mg Insulin Detemir (Levemir) 14 unit SC BID@0800,2200 [facility] Last Admin: 04/03/17 21:08 Dose: 14 unit Insulin Glargine (Lantus) 25 unit SC [facility] Last Admin: 03/16/17 22:27 Dose: Not Given Insulin Human Regular (Novolin R) 9 unit SC AC [facility] Last Admin: 04/03/17 17:58 Dose: 9 unit Latanoprost (Xalatan Opht) 0.02 ml OU [facility] Last Admin: 04/03/17 21:09 Dose: 0.02 ml Lisinopril (Zestril) 20 mg PO DAILY [facility] Last Admin: 04/03/17 09:55 Dose: 20 mg Pantoprazole Sodium (Protonix Ec Tab) 40 mg PO DAILY [facility] Last Admin: 04/03/17 09:55 Dose: 40 mg Rosuvastatin Calcium (Crestor) 10 mg PO [facility] Last Admin: 04/03/17 21:04 Dose: Not Given Timolol Maleate (Timoptic 0.5% Oph Soln) 1 drop OU BID [facility] Last Admin: 04/03/17 21:08 Dose: 1 drop Vitamin B Complex/Vit C/Folic Acid (Nephro-Kevin) 1 tab PO 0800 [facility] Last Admin: 04/03/17 09:54 Dose: 1 tab - Labs Labs: 04/02/17 09:40 04/02/17 09:40 PT 12.0 SECONDS (9.7-12.2) 03/30/17 08:03 INR 1.1 03/30/17 08:03 APTT 26 SECONDS (21-34) 03/30/17 08:03 - Additional Findings Additional findings: - Constitutional Appears: Chronically Ill - Head Exam Head Exam: ATRAUMATIC, NORMAL INSPECTION, NORMOCEPHALIC - Eye Exam Eye Exam: EOMI Pupil Exam: NORMAL ACCOMODATION - ENT Exam ENT Exam: Mucous Membranes Moist - Respiratory Exam Respiratory Exam: Clear to Ausculation Bilateral, NORMAL BREATHING PATTERN - Cardiovascular Exam Cardiovascular Exam: REGULAR RHYTHM - GI/Abdominal Exam GI & Abdominal Exam: Soft, Normal Bowel Sounds. absent: Distended, Tenderness - Extremities Exam Additional comments: status post L. BKA. Dressing and brace in place - Skin Skin Exam: Dry, Intact, Normal Color, Warm Assessment and Plan - Assessment and Plan (Free Text) Assessment: Intermittent Altered Mental Status -likely secondary to poor glycemic control - Neurology on board (Dr. Aguirre) - CT head negative for acute infarction - Discontinued all pain medications, tyelnol prn Cardiac Comorbidties -CHF, HTN. PVD - Echo showed 61% LVEF 03/09/17 - Vascular surgery on board (Dr. Broussard) for PVD - Lisonopril 20mg PO QD - Crestor 10 mg PO HS - R femoral line placed in ICU has been removed S/P L. BKA - dressing changes per surgery - keep brace on Dyspnea - Patient has had prior episodes of respiratory distress in the past secondary to effusion. - S/P thoracentesis on 03/27: 900 cc of clear fluid removed from left lung - Most recent CXR 03/27: Decreased left pleural effusion. No pneumothorax. Stable small right pleural effusion. - O2 Sat of 100% on NC 5 L - BiPAP off ESRD on hemodialysis - Pt undergoes hemodialysis //Thu, will dialyze daily to resolve altered mentation - Multiple electrolyte abnormalities throughout this admission, monitor CMPs, magnesium and phosphorous daily - PICC line inserted by IR 03/23/17 now functional, R femoral line removed - Permacath removed by surgery - Ergocalcierol 1 capsule PO Q7D - Procrit - Vancomycin 1gram IVPB 3 times weeks post dialysis Type 2 Diabetes -poorly controlled - Accuchecks ACHS - Regular Insulin high dose protocol for coverahe - Lantus 25u SC HS - A1c of 8.9 02/18/17 Failure to thrive - Hx of dysphagia - GI consult on board ([place]) - As of 03/19/17 , GI did not recommend PEG placement due to patient's significant medical comorbidities - Soft diet - C diff neg (02/28) Anemia of chronic disease - Hgb stable. Cont to monitor - Procrit 10,000U IV on dialysis days - Ferrlecit 125mg IVPB TTS Peripheral vascular Disease -Low ext arterial duplex (02/04/17) -occlusion R post tib artery, 50-75% stenosis right mid popliteal & proximal anterior tib arteries -occlusion of left post tib artery, >75% stenosis left proximal ant tibial artery, 50-75% stenosis left distal SFA & proximal popliteal a. Prophylactic Measure - Protonix 40mg PO daily - Heparin 5000 U SC Q12 - Nephro-kevin vitamins - SCDs Planning on D/C patient to [place]. No other updates at this time. <Benson Myrick Jr. - Last Filed: 04/04/17 14:23> Objective - Vital Signs/Intake and Output Vital Signs (last 24 hours): Temp Pulse Resp BP Pulse Ox 97.6 F 92 H 18 144/52 L 100 04/04/17 07:48 04/04/17 07:48 04/04/17 07:48 04/04/17 07:48 04/04/17 07:48 Intake and Output: 04/04/17 04/04/17 06:59 18:59 Intake Total 300 Balance 300 - Medications Medications: Current Medications Acetaminophen (Tylenol 325mg Tab) 650 mg PO Q6 PRN PRN Reason: Pain, moderate (4-7) Last Admin: 03/28/17 13:21 Dose: 650 mg Acetaminophen (Tylenol 325 Mg Supp) 325 mg [place] Q6 PRN PRN Reason: Fever >100.4 F Last Admin: 03/31/17 09:36 Dose: 325 mg Brimonidine Tartrate (Alphagan 0.2% Opht) 1 ml OU TID [facility] Last Admin: 04/04/17 13:04 Dose: 1 drop Dextrose (Dextrose 50% Inj) 0 ml IV STAT PRN; Protocol PRN Reason: Hyglycemia Protocol Last Admin: 04/04/17 06:35 Dose: 50 ml Dextrose (Glutose 15) 0 gm PO ONCE PRN; Protocol PRN Reason: Hypoglycemia Protocol Last Admin: 04/01/17 21:54 Dose: 15 gm Ergocalciferol (Drisdol 50,000 Intl Units Cap) 1 cap PO Q7D [facility] Last Admin: 03/31/17 00:35 Dose: 1 cap Glucagon (Glucagen Diagnostic Kit) 0 mg IM STAT PRN; Protocol PRN Reason: Hypoglycemia Protocol Hydromorphone HCl (Dilaudid) 0.5 mg IVP Q4H PRN PRN Reason: Pain, severe (8-10) Last Admin: 04/04/17 11:27 Dose: 0.5 mg Dextrose/Sodium Chloride (Dextrose 5%/0.45% Ns 1000 Ml) 1,000 mls @ 50 mls/hr IV .Q20H [facility] Last Admin: 04/04/17 13:04 Dose: 50 mls/hr Insulin Detemir (Levemir) 14 unit SC BID@0800,2200 [facility] Last Admin: 04/04/17 08:26 Dose: Not Given Insulin Glargine (Lantus) 25 unit SC HS [facility] Last Admin: 03/16/17 22:27 Dose: Not Given Insulin Human Regular (Novolin R) 9 unit SC AC [facility] Last Admin: 04/04/17 12:00 Dose: Not Given Latanoprost (Xalatan Opht) 0.02 ml OU HS [facility] Last Admin: 04/03/17 21:09 Dose: 0.02 ml Lisinopril (Zestril) 20 mg PO DAILY [facility] Last Admin: 04/04/17 13:08 Dose: 20 mg Pantoprazole Sodium (Protonix Ec Tab) 40 mg PO DAILY [facility] Last Admin: 04/04/17 13:09 Dose: Not Given Timolol Maleate (Timoptic 0.5% Oph Soln) 1 drop OU BID [facility] Last Admin: 04/04/17 09:00 Dose: Not Given Vitamin B Complex/Vit C/Folic Acid (Nephro-Kevin) 1 tab PO 0800 [facility] Last Admin: 04/04/17 13:07 Dose: Not Given - Labs Labs: 04/04/17 10:21 04/04/17 10:21 PT 12.0 SECONDS (9.7-12.2) 03/30/17 08:03 INR 1.1 03/30/17 08:03 APTT 26 SECONDS (21-34) 03/30/17 08:03 Attending/Attestation - Attestation I have personally seen and examined this patient.: Yes I have fully participated in the care of the patient.: Yes I have reviewed all pertinent clinical information, including history, physical exam and plan: Yes Notes (Text): 04/04/17 14:23 Agree with the resident note and plan of care
[2017-04-04] MEDS: HYDROmorphone 0.5 mg/0.5 ml ISec IVP PRN ×3 (04:48→17:48)
[2017-04-04] MEDS ORDERED: Dextrose 50% SYRINGE Inj (50 ml) ONE ×2 (06:31→12:42)
[2017-04-04] MEDS: Dextrose 50% SYRINGE Inj (50 ml) IV PRN (06:35)
[2017-04-04] MEDS: Insulin Detemir 100 units/ml Vial (Levemir) SC SCH ×2 (08:26→21:59)
[2017-04-04] MEDS: (Novolin R) Insulin Human Regular 100 units/ml vial SC SCH ×3 (08:27→17:42)
[2017-04-04] MEDS: Brimonidine 0.2% Opth Sol (5ml) OU SCH ×3 (09:59→17:50)
[2017-04-04] MEDS: Epoetin Alfa 10,000 unit/ml Dialysis IV SCH (10:00)
[2017-04-04 10:25] LABS: HEMATOCRIT 32.8 % (34.0-47.0); MEAN CORPUSCULAR HEMOGLOBIN 30.9 pg (27.0-31.0); MEAN CORPUSCULAR HGB CONC 32.3 g/dL (33.0-37.0); MEAN PLATELET VOLUME 8.3 fL (7.2-11.7); RED CELL DISTRIBUTION WIDTH 20.7 % (11.5-14.5)
[2017-04-04 10:33] LABS: MEAN CELL VOLUME 96.1 fL (81.0-99.0)
[2017-04-04 10:34] LABS: POTASSIUM 3.4 mmol/L (3.6-5.2)
[2017-04-04 10:37] LABS: CALCIUM 7.4 mg/dl (8.6-10.4); MAGNESIUM 1.9 mg/dL (1.6-2.3); PHOSPHOROUS 3.7 mg/dL (2.5-4.5)
[2017-04-04] MEDS: Dextrose 5%/0.45% NS 1,000 ML IV SCH (13:04)
[2017-04-04] MEDS: Multivitamin Vitamin B Complex (Nephro-Vite) Tab PO SCH (13:07)
[2017-04-04] MEDS: Pantoprazole 40 mg EC Tab PO SCH (13:09)
--- NOTE | 2017-04-04 14:42 | CP.PCM.PN ---
Subjective - Date & Time of Evaluation Date of Evaluation: 04/04/17 Time of Evaluation: 14:32 - Subjective Subjective: hd access has clotted will need revision and temp cath will ask Dr Broussard for his help Family has specifically asked for Dr Broussard creat only 1.6 will recheck 24 hr gfr perhap she has regained some function Objective - Vital Signs/Intake and Output Vital Signs (last 24 hours): Temp Pulse Resp BP Pulse Ox 97.6 F 92 H 18 144/52 L 100 04/04/17 07:48 04/04/17 07:48 04/04/17 07:48 04/04/17 07:48 04/04/17 07:48 Intake and Output: 04/04/17 04/04/17 06:59 18:59 Intake Total 300 Balance 300 - Medications Medications: Current Medications Acetaminophen (Tylenol 325mg Tab) 650 mg PO Q6 PRN PRN Reason: Pain, moderate (4-7) Last Admin: 03/28/17 13:21 Dose: 650 mg Acetaminophen (Tylenol 325 Mg Supp) 325 mg [place] Q6 PRN PRN Reason: Fever >100.4 F Last Admin: 03/31/17 09:36 Dose: 325 mg Brimonidine Tartrate (Alphagan 0.2% Opht) 1 ml OU TID [facility] Last Admin: 04/04/17 13:04 Dose: 1 drop Dextrose (Dextrose 50% Inj) 0 ml IV STAT PRN; Protocol PRN Reason: Hyglycemia Protocol Last Admin: 04/04/17 06:35 Dose: 50 ml Dextrose (Glutose 15) 0 gm PO ONCE PRN; Protocol PRN Reason: Hypoglycemia Protocol Last Admin: 04/01/17 21:54 Dose: 15 gm Ergocalciferol (Drisdol 50,000 Intl Units Cap) 1 cap PO Q7D [facility] Last Admin: 03/31/17 00:35 Dose: 1 cap Glucagon (Glucagen Diagnostic Kit) 0 mg IM STAT PRN; Protocol PRN Reason: Hypoglycemia Protocol Hydromorphone HCl (Dilaudid) 0.5 mg IVP Q4H PRN PRN Reason: Pain, severe (8-10) Last Admin: 04/04/17 11:27 Dose: 0.5 mg Dextrose/Sodium Chloride (Dextrose 5%/0.45% Ns 1000 Ml) 1,000 mls @ 50 mls/hr IV .Q20H [facility] Last Admin: 04/04/17 13:04 Dose: 50 mls/hr Insulin Detemir (Levemir) 14 unit SC BID@0800,2200 [facility] Last Admin: 04/04/17 08:26 Dose: Not Given Insulin Glargine (Lantus) 25 unit SC HS [facility] Last Admin: 03/16/17 22:27 Dose: Not Given Insulin Human Regular (Novolin R) 9 unit SC AC [facility] Last Admin: 04/04/17 12:00 Dose: Not Given Latanoprost (Xalatan Opht) 0.02 ml OU HS [facility] Last Admin: 04/03/17 21:09 Dose: 0.02 ml Lisinopril (Zestril) 20 mg PO DAILY [facility] Last Admin: 04/04/17 13:08 Dose: 20 mg Pantoprazole Sodium (Protonix Ec Tab) 40 mg PO DAILY [facility] Last Admin: 04/04/17 13:09 Dose: Not Given Timolol Maleate (Timoptic 0.5% Oph Soln) 1 drop OU BID [facility] Last Admin: 04/04/17 09:00 Dose: Not Given Vitamin B Complex/Vit C/Folic Acid (Nephro-Kevin) 1 tab PO 0800 [facility] Last Admin: 04/04/17 13:07 Dose: Not Given - Labs Labs: 04/04/17 10:21 04/04/17 10:21 PT 12.0 SECONDS (9.7-12.2) 03/30/17 08:03 INR 1.1 03/30/17 08:03 APTT 26 SECONDS (21-34) 03/30/17 08:03 - Constitutional Appears: Non-toxic - Head Exam Head Exam: NORMAL INSPECTION - Eye Exam Eye Exam: Normal appearance - ENT Exam ENT Exam: Mucous Membranes Moist - Neck Exam Neck Exam: Normal Inspection - Respiratory Exam Respiratory Exam: NORMAL BREATHING PATTERN - Cardiovascular Exam Cardiovascular Exam: REGULAR RHYTHM - GI/Abdominal Exam GI & Abdominal Exam: Soft - Neurological Exam Neurological Exam: Alert, Awake - Psychiatric Exam Psychiatric exam: Depressed - Skin Skin Exam: Dry, Warm Assessment and Plan - Assessment and Plan (Free Text) Assessment: Intermittent Altered Mental Status -likely secondary to poor glycemic control - Neurology on board (Dr. Aguirre) - CT head negative for acute infarction - Discontinued all pain medications, tyelnol prn Cardiac Comorbidties -CHF, HTN. PVD - Echo showed 61% LVEF 03/09/17 - Vascular surgery on board (Dr. Broussard) for PVD - Lisonopril 20mg PO QD - Crestor 10 mg PO HS - R femoral line placed in ICU has been removed S/P L. BKA - dressing changes per surgery - keep brace on Dyspnea - Patient has had prior episodes of respiratory distress in the past secondary to effusion. - S/P thoracentesis on 03/27: 900 cc of clear fluid removed from left lung - Most recent CXR 03/27: Decreased left pleural effusion. No pneumothorax. Stable small right pleural effusion. - O2 Sat of 100% on NC 5 L - BiPAP off ESRD on hemodialysis - Pt undergoes hemodialysis //Thu, will dialyze daily to resolve altered mentation - Multiple electrolyte abnormalities throughout this admission, monitor CMPs, magnesium and phosphorous daily - PICC line inserted by IR 03/23/17 now functional, R femoral line removed - Permacath removed by surgery - Ergocalcierol 1 capsule PO Q7D - Procrit - Vancomycin 1gram IVPB 3 times weeks post dialysis Type 2 Diabetes -poorly controlled - Accuchecks ACHS - Regular Insulin high dose protocol for coverahe - Lantus 25u SC HS - A1c of 8.9 02/18/17 Failure to thrive - Hx of dysphagia - GI consult on board ([place]) - As of 03/19/17 , GI did not recommend PEG placement due to patient's significant medical comorbidities - Soft diet - C diff neg (02/28) Anemia of chronic disease - Hgb stable. Cont to monitor - Procrit 10,000U IV on dialysis days - Ferrlecit 125mg IVPB TTS Peripheral vascular Disease -Low ext arterial duplex (02/04/17) -occlusion R post tib artery, 50-75% stenosis right mid popliteal & proximal anterior tib arteries -occlusion of left post tib artery, >75% stenosis left proximal ant tibial artery, 50-75% stenosis left distal SFA & proximal popliteal a. Prophylactic Measure - Protonix 40mg PO daily - Heparin 5000 U SC Q12 - Nephro-kevin vitamins - SCDs Plan: hd when stable
--- NOTE | 2017-04-04 15:17 | CP.PCM.PN ---
Objective - Vital Signs/Intake and Output Vital Signs (last 24 hours): Temp Pulse Resp BP Pulse Ox 97.6 F 92 H 18 144/52 L 100 04/04/17 07:48 04/04/17 07:48 04/04/17 07:48 04/04/17 07:48 04/04/17 07:48 Intake and Output: 04/04/17 04/04/17 06:59 18:59 Intake Total 300 Balance 300 - Medications Medications: Current Medications Acetaminophen (Tylenol 325mg Tab) 650 mg PO Q6 PRN PRN Reason: Pain, moderate (4-7) Last Admin: 03/28/17 13:21 Dose: 650 mg Acetaminophen (Tylenol 325 Mg Supp) 325 mg [place] Q6 PRN PRN Reason: Fever >100.4 F Last Admin: 03/31/17 09:36 Dose: 325 mg Brimonidine Tartrate (Alphagan 0.2% Opht) 1 ml OU TID [facility] Last Admin: 04/04/17 13:04 Dose: 1 drop Dextrose (Dextrose 50% Inj) 0 ml IV STAT PRN; Protocol PRN Reason: Hyglycemia Protocol Last Admin: 04/04/17 06:35 Dose: 50 ml Dextrose (Glutose 15) 0 gm PO ONCE PRN; Protocol PRN Reason: Hypoglycemia Protocol Last Admin: 04/01/17 21:54 Dose: 15 gm Ergocalciferol (Drisdol 50,000 Intl Units Cap) 1 cap PO Q7D [facility] Last Admin: 03/31/17 00:35 Dose: 1 cap Glucagon (Glucagen Diagnostic Kit) 0 mg IM STAT PRN; Protocol PRN Reason: Hypoglycemia Protocol Hydromorphone HCl (Dilaudid) 0.5 mg IVP Q4H PRN PRN Reason: Pain, severe (8-10) Last Admin: 04/04/17 11:27 Dose: 0.5 mg Dextrose/Sodium Chloride (Dextrose 5%/0.45% Ns 1000 Ml) 1,000 mls @ 50 mls/hr IV .Q20H [facility] Last Admin: 04/04/17 13:04 Dose: 50 mls/hr Insulin Detemir (Levemir) 14 unit SC BID@0800,2200 [facility] Last Admin: 04/04/17 08:26 Dose: Not Given Insulin Glargine (Lantus) 25 unit SC HS [facility] Last Admin: 03/16/17 22:27 Dose: Not Given Insulin Human Regular (Novolin R) 9 unit SC AC [facility] Last Admin: 04/04/17 12:00 Dose: Not Given Latanoprost (Xalatan Opht) 0.02 ml OU HS [facility] Last Admin: 04/03/17 21:09 Dose: 0.02 ml Lisinopril (Zestril) 20 mg PO DAILY [facility] Last Admin: 04/04/17 13:08 Dose: 20 mg Pantoprazole Sodium (Protonix Ec Tab) 40 mg PO DAILY [facility] Last Admin: 04/04/17 13:09 Dose: Not Given Timolol Maleate (Timoptic 0.5% Oph Soln) 1 drop OU BID [facility] Last Admin: 04/04/17 09:00 Dose: Not Given Vitamin B Complex/Vit C/Folic Acid (Nephro-Alonzo) 1 tab PO 0800 [facility] Last Admin: 04/04/17 13:07 Dose: Not Given - Labs Labs: 04/04/17 10:21 04/04/17 10:21 PT 12.0 SECONDS (9.7-12.2) 03/30/17 08:03 INR 1.1 03/30/17 08:03 APTT 26 SECONDS (21-34) 03/30/17 08:03
--- NOTE | 2017-04-04 18:38 | CP.PCM.PCO ---
Physician Communication Note - Physician Communication Note Physician Communication Note: AVF clotted. NPO, f/u Cr in AM if normal patient can eat. OR thursday
[2017-04-04] MEDS: Latanoprost 2.5 ml Opht Soln OU SCH (21:59)
--- NOTE | 2017-04-05 01:03 | CP.PCM.PN ---
Subjective - Date & Time of Evaluation Date of Evaluation: 04/05/17 Time of Evaluation: 01:00 - Subjective Subjective: PGY-1 Medicine Progress Note for Dr. Myrick HPI: Patient seen and examined at bedside. Family at bedside. More Alert and awake today. ROS Unattainable. AVF clotted. NPO, f/u Cr in AM if normal patient can eat. OR thursday. Objective - Vital Signs/Intake and Output Vital Signs (last 24 hours): Temp Pulse Resp BP Pulse Ox 97.6 F 103 H 20 159/77 H 99 04/04/17 16:01 04/04/17 16:01 04/04/17 16:01 04/04/17 17:55 04/04/17 16:01 Intake and Output: 04/04/17 04/05/17 18:59 06:59 Intake Total 300 Balance 300 - Medications Medications: Current Medications Acetaminophen (Tylenol 325mg Tab) 650 mg PO Q6 PRN PRN Reason: Pain, moderate (4-7) Last Admin: 03/28/17 13:21 Dose: 650 mg Acetaminophen (Tylenol 325 Mg Supp) 325 mg [place] Q6 PRN PRN Reason: Fever >100.4 F Last Admin: 03/31/17 09:36 Dose: 325 mg Brimonidine Tartrate (Alphagan 0.2% Opht) 1 ml OU TID [facility] Last Admin: 04/04/17 17:50 Dose: 1 drop Dextrose (Dextrose 50% Inj) 0 ml IV STAT PRN; Protocol PRN Reason: Hyglycemia Protocol Last Admin: 04/04/17 06:35 Dose: 50 ml Dextrose (Glutose 15) 0 gm PO ONCE PRN; Protocol PRN Reason: Hypoglycemia Protocol Last Admin: 04/01/17 21:54 Dose: 15 gm Ergocalciferol (Drisdol 50,000 Intl Units Cap) 1 cap PO Q7D [facility] Last Admin: 03/31/17 00:35 Dose: 1 cap Glucagon (Glucagen Diagnostic Kit) 0 mg IM STAT PRN; Protocol PRN Reason: Hypoglycemia Protocol Hydromorphone HCl (Dilaudid) 0.5 mg IVP Q4H PRN PRN Reason: Pain, severe (8-10) Last Admin: 04/04/17 17:48 Dose: 0.5 mg Dextrose/Sodium Chloride (Dextrose 5%/0.45% Ns 1000 Ml) 1,000 mls @ 50 mls/hr IV .Q20H [facility] Last Admin: 04/04/17 13:04 Dose: 50 mls/hr Potassium Chloride (Potassium Chloride 20 Meq/100 Ml) 20 meq in 100 mls @ 50 mls/hr IVPB ONCE ONE Stop: 04/05/17 02:58 Insulin Detemir (Levemir) 14 unit SC BID@0800,2200 [facility] Last Admin: 04/04/17 21:59 Dose: 14 unit Insulin Glargine (Lantus) 25 unit SC HS [facility] Last Admin: 03/16/17 22:27 Dose: Not Given Insulin Human Regular (Novolin R) 9 unit SC AC [facility] Last Admin: 04/04/17 17:42 Dose: Not Given Latanoprost (Xalatan Opht) 0.02 ml OU HS [facility] Last Admin: 04/04/17 21:59 Dose: 0.02 ml Lisinopril (Zestril) 20 mg PO DAILY [facility] Last Admin: 04/04/17 13:08 Dose: 20 mg Pantoprazole Sodium (Protonix Ec Tab) 40 mg PO DAILY [facility] Last Admin: 04/04/17 13:09 Dose: Not Given Timolol Maleate (Timoptic 0.5% Oph Soln) 1 drop OU BID [facility] Last Admin: 04/04/17 17:50 Dose: 1 drop Vitamin B Complex/Vit C/Folic Acid (Nephro-Kevin) 1 tab PO 0800 [facility] Last Admin: 04/04/17 13:07 Dose: Not Given - Labs Labs: 04/04/17 10:21 04/04/17 10:21 PT 12.0 SECONDS (9.7-12.2) 03/30/17 08:03 INR 1.1 03/30/17 08:03 APTT 26 SECONDS (21-34) 03/30/17 08:03 - Additional Findings Additional findings: - Constitutional Appears: Chronically Ill - Head Exam Head Exam: ATRAUMATIC, NORMAL INSPECTION, NORMOCEPHALIC - Eye Exam Eye Exam: EOMI Pupil Exam: NORMAL ACCOMODATION - ENT Exam ENT Exam: Mucous Membranes Moist - Respiratory Exam Respiratory Exam: Clear to Ausculation Bilateral, NORMAL BREATHING PATTERN - Cardiovascular Exam Cardiovascular Exam: REGULAR RHYTHM - GI/Abdominal Exam GI & Abdominal Exam: Soft, Normal Bowel Sounds. absent: Distended, Tenderness - Extremities Exam Additional comments: status post L. BKA. Dressing and brace in place - Skin Skin Exam: Dry, Intact, Normal Color, Warm Assessment and Plan - Assessment and Plan (Free Text) Assessment: Intermittent Altered Mental Status -likely secondary to poor glycemic control - Neurology on board (Dr. Aguirre) - CT head negative for acute infarction - Discontinued all pain medications, tyelnol prn Cardiac Comorbidties -CHF, HTN. PVD - Echo showed 61% LVEF 03/09/17 - Vascular surgery on board (Dr. Broussard) for PVD - Lisonopril 20mg PO QD - Crestor 10 mg PO HS - R femoral line placed in ICU has been removed S/P L. BKA - dressing changes per surgery - keep brace on Dyspnea - Patient has had prior episodes of respiratory distress in the past secondary to effusion. - S/P thoracentesis on 03/27: 900 cc of clear fluid removed from left lung - Most recent CXR 03/27: Decreased left pleural effusion. No pneumothorax. Stable small right pleural effusion. - O2 Sat of 100% on NC 5 L - BiPAP off ESRD on hemodialysis - Pt undergoes hemodialysis //Thu, will dialyze daily to resolve altered mentation - Multiple electrolyte abnormalities throughout this admission, monitor CMPs, magnesium and phosphorous daily - PICC line inserted by IR 03/23/17 now functional, R femoral line removed - Permacath removed by surgery - Ergocalcierol 1 capsule PO Q7D - Procrit - Vancomycin 1gram IVPB 3 times weeks post dialysis - 04/05: AVF clotted. NPO, F/U Cr in AM if normal patient can eat. OR 04/06 Type 2 Diabetes -poorly controlled - Accuchecks ACHS - Regular Insulin high dose protocol for coverahe - Lantus 25u SC HS - A1c of 8.9 02/18/17 Failure to thrive - Hx of dysphagia - GI consult on board ([place]) - As of 03/19/17 , GI did not recommend PEG placement due to patient's significant medical comorbidities - Soft diet - C diff neg (02/28) Anemia of chronic disease - Hgb stable. Cont to monitor - Procrit 10,000U IV on dialysis days - Ferrlecit 125mg IVPB TTS Peripheral vascular Disease -Low ext arterial duplex (02/04/17) -occlusion R post tib artery, 50-75% stenosis right mid popliteal & proximal anterior tib arteries -occlusion of left post tib artery, >75% stenosis left proximal ant tibial artery, 50-75% stenosis left distal SFA & proximal popliteal a. Prophylactic Measure - Protonix 40mg PO daily - Heparin 5000 U SC Q12 - Nephro-kevin vitamins - SCDs Planning on D/C patient to [place]. No other updates at this time.
[2017-04-05] MEDS: HYDROmorphone 0.5 mg/0.5 ml ISec IVP PRN ×4 (01:12→19:03)
[2017-04-05] MEDS: Dextrose 50% SYRINGE Inj (50 ml) IV PRN (06:45)
[2017-04-05] MEDS ORDERED: Dextrose 50% SYRINGE Inj (50 ml) ONE (06:46)
[2017-04-05] MEDS: Insulin Detemir 100 units/ml Vial (Levemir) SC SCH ×2 (08:05→21:07)
[2017-04-05] MEDS: (Novolin R) Insulin Human Regular 100 units/ml vial SC SCH ×3 (08:10→17:45)
[2017-04-05] MEDS: Multivitamin Vitamin B Complex (Nephro-Vite) Tab PO SCH (09:00)
--- NOTE | 2017-04-05 09:15 | CP.PCM.PN ---
Subjective - Date & Time of Evaluation Date of Evaluation: 04/05/17 Time of Evaluation: 06:40 - Subjective Subjective: Vascular Surgery Note for Dr. Broussard Patient seen and examined at bedside. No acute event overnight. Yesterday, patient AVF was not able to be used for dialysis and found to be clotted. Patient is resting in bed comfortably. She occasionally moans. ROS unobtainable. Objective - Vital Signs/Intake and Output Vital Signs (last 24 hours): Temp Pulse Resp BP Pulse Ox 98.5 F 92 H 20 154/65 H 97 04/05/17 07:52 04/05/17 07:52 04/05/17 07:52 04/05/17 07:52 04/05/17 07:52 - Medications Medications: Current Medications Acetaminophen (Tylenol 325mg Tab) 650 mg PO Q6 PRN PRN Reason: Pain, moderate (4-7) Last Admin: 03/28/17 13:21 Dose: 650 mg Acetaminophen (Tylenol 325 Mg Supp) 325 mg [place] Q6 PRN PRN Reason: Fever >100.4 F Last Admin: 03/31/17 09:36 Dose: 325 mg Brimonidine Tartrate (Alphagan 0.2% Opht) 1 ml OU TID ELINA Last Admin: 04/04/17 17:50 Dose: 1 drop Dextrose (Dextrose 50% Inj) 0 ml IV STAT PRN; Protocol PRN Reason: Hyglycemia Protocol Last Admin: 04/05/17 06:45 Dose: 50 ml Dextrose (Glutose 15) 0 gm PO ONCE PRN; Protocol PRN Reason: Hypoglycemia Protocol Last Admin: 04/01/17 21:54 Dose: 15 gm Ergocalciferol (Drisdol 50,000 Intl Units Cap) 1 cap PO Q7D ELINA Last Admin: 03/31/17 00:35 Dose: 1 cap Glucagon (Glucagen Diagnostic Kit) 0 mg IM STAT PRN; Protocol PRN Reason: Hypoglycemia Protocol Hydromorphone HCl (Dilaudid) 0.5 mg IVP Q4H PRN PRN Reason: Pain, severe (8-10) Last Admin: 04/05/17 01:12 Dose: 0.5 mg Dextrose/Sodium Chloride (Dextrose 5%/0.45% Ns 1000 Ml) 1,000 mls @ 50 mls/hr IV .Q20H ELINA Last Admin: 04/04/17 13:04 Dose: 50 mls/hr Insulin Detemir (Levemir) 14 unit SC BID@0800,2200 [facility] Last Admin: 04/04/17 21:59 Dose: 14 unit Insulin Glargine (Lantus) 25 unit SC HS [facility] Last Admin: 03/16/17 22:27 Dose: Not Given Insulin Human Regular (Novolin R) 9 unit SC AC [facility] Last Admin: 04/04/17 17:42 Dose: Not Given Latanoprost (Xalatan Opht) 0.02 ml OU HS [facility] Last Admin: 04/04/17 21:59 Dose: 0.02 ml Lisinopril (Zestril) 20 mg PO DAILY [facility] Last Admin: 04/04/17 13:08 Dose: 20 mg Pantoprazole Sodium (Protonix Ec Tab) 40 mg PO DAILY [facility] Last Admin: 04/04/17 13:09 Dose: Not Given Timolol Maleate (Timoptic 0.5% Oph Soln) 1 drop OU BID [facility] Last Admin: 04/04/17 17:50 Dose: 1 drop Vitamin B Complex/Vit C/Folic Acid (Nephro-Alonzo) 1 tab PO 0800 [facility] Last Admin: 04/04/17 13:07 Dose: Not Given - Labs Labs: 04/04/17 10:21 04/04/17 10:21 PT 12.0 SECONDS (9.7-12.2) 03/30/17 08:03 INR 1.1 03/30/17 08:03 APTT 26 SECONDS (21-34) 03/30/17 08:03 - Constitutional Appears: No Acute Distress - Head Exam Head Exam: ATRAUMATIC, NORMOCEPHALIC - Eye Exam Eye Exam: Normal appearance - Respiratory Exam Respiratory Exam: NORMAL BREATHING PATTERN - Cardiovascular Exam Cardiovascular Exam: REGULAR RHYTHM - Extremities Exam Additional comments: LUE AVF without palpable thrill or bruit - Neurological Exam Neurological Exam: Alert, Awake - Psychiatric Exam Additional comments: labile affect and mood - Skin Skin Exam: Dry, Normal Color, Warm Assessment and Plan - Assessment and Plan (Free Text) Plan: 71 F with clotted LUE AVF -NPO untila AM labs return, if Cr<2 patient may eat -NPO past for OR Thursday -Management as per primary -Discuss with Dr. Bobo Sotelo PGY1
[2017-04-05] MEDS: Pantoprazole 40 mg EC Tab PO SCH (09:35)
[2017-04-05] MEDS: Dextrose 5%/0.45% NS 1,000 ML IV SCH (09:36)
[2017-04-05] MEDS: Latanoprost 2.5 ml Opht Soln OU SCH ×2 (09:36→21:08)
[2017-04-05] MEDS: Brimonidine 0.2% Opth Sol (5ml) OU SCH ×3 (09:36→18:00)
[2017-04-05 16:06] LABS: BASO % 0.3 % (0.0-2.0); EOS % 0.3 % (0.0-4.0); HEMATOCRIT 21.4 % (34.0-47.0); LYMPH # 0.7 K/uL (1.0-4.3); MEAN CORPUSCULAR HEMOGLOBIN 30.8 pg (27.0-31.0); MEAN CORPUSCULAR HGB CONC 31.2 g/dL (33.0-37.0); MEAN PLATELET VOLUME 8.6 fL (7.2-11.7); MONO # 0.7 K/uL (0.0-0.8); RED CELL DISTRIBUTION WIDTH 20.2 % (11.5-14.5); WHITE BLOOD COUNT 9.8 K/uL (4.8-10.8)
[2017-04-05 16:11] LABS: ALB/GLOB RATIO 0.7 (1.0-2.1); BILIRUBIN,TOTAL 0.3 mg/dL (0.2-1.3); TOTAL PROTEIN 5.2 g/dL (6.3-8.3)
[2017-04-05 16:12] LABS: CALCIUM 6.8 mg/dl (8.6-10.4)
[2017-04-05 16:13] LABS: LYMPH % 6.7 % (20.0-40.0); PLATELET COUNT 148 K/uL (130-400)
[2017-04-05 16:50] LABS: NEUTROPHIL 85 % (50-75); TOTAL CELLS COUNTED 100
[2017-04-05 16:58] LABS: BASO # 0.1 K/uL (0.0-0.2); BASO % 0.8 % (0.0-2.0); EOS % 0.3 % (0.0-4.0); HEMATOCRIT 30.6 % (34.0-47.0); LYMPH # 0.8 K/uL (1.0-4.3); LYMPH % 5.4 % (20.0-40.0); MEAN CORPUSCULAR HEMOGLOBIN 30.2 pg (27.0-31.0); MEAN CORPUSCULAR HGB CONC 31.2 g/dL (33.0-37.0); MEAN PLATELET VOLUME 7.9 fL (7.2-11.7); MONO % 6.7 % (0.0-10.0); RED CELL DISTRIBUTION WIDTH 20.4 % (11.5-14.5)
[2017-04-05 17:00] LABS: WHITE BLOOD COUNT 15.5 K/uL (4.8-10.8)
[2017-04-06] MEDS: Dextrose 5%/0.45% NS 1,000 ML IV SCH (04:45)
[2017-04-06 06:24] LABS: BASO % 0.3 % (0.0-2.0); HEMATOCRIT 27.9 % (34.0-47.0); LYMPH # 0.6 K/uL (1.0-4.3); LYMPH % 3.7 % (20.0-40.0); MEAN CELL VOLUME 101.9 fL (81.0-99.0); MEAN CORPUSCULAR HEMOGLOBIN 30.9 pg (27.0-31.0); MEAN CORPUSCULAR HGB CONC 30.3 g/dL (33.0-37.0); MEAN PLATELET VOLUME 8.4 fL (7.2-11.7); MONO # 0.6 K/uL (0.0-0.8); MONO % 4.1 % (0.0-10.0); PLATELET COUNT 209 K/uL (130-400); RED CELL DISTRIBUTION WIDTH 20.5 % (11.5-14.5); WHITE BLOOD COUNT 14.8 K/uL (4.8-10.8)
[2017-04-06 06:57] LABS: ALB/GLOB RATIO 0.7 (1.0-2.1); BILIRUBIN,TOTAL 0.5 mg/dL (0.2-1.3); CALCIUM 6.9 mg/dl (8.6-10.4); POTASSIUM 4.5 mmol/L (3.6-5.2); TOTAL PROTEIN 4.7 g/dL (6.3-8.3)
[2017-04-06] MEDS: (Novolin R) Insulin Human Regular 100 units/ml vial SC SCH ×3 (07:48→19:41)
[2017-04-06 08:10] LABS: NEUTROPHIL 93 % (50-75); TOTAL CELLS COUNTED 100
[2017-04-06] MEDS: Insulin Detemir 100 units/ml Vial (Levemir) SC SCH ×2 (08:18→21:44)
[2017-04-06] MEDS: Multivitamin Vitamin B Complex (Nephro-Vite) Tab PO SCH (08:18)
[2017-04-06] MEDS: Pantoprazole 40 mg EC Tab PO SCH (10:22)
[2017-04-06] MEDS ORDERED: Insulin Detemir 100 units/ml Vial (Levemir) SC STA (10:27)
[2017-04-06] MEDS: Sodium Chloride 0.9% 1,000 ML IV SCH (10:48)
[2017-04-06] MEDS: HYDROmorphone 0.5 mg/0.5 ml ISec IVP PRN ×2 (10:51→19:41)
--- NOTE | 2017-04-06 16:11 | CP.PCM.PN ---
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 Objective - Vital Signs/Intake and Output Vital Signs (last 24 hours): Temp Pulse Resp BP Pulse Ox 98.6 F 80 20 180/76 H 100 04/06/17 07:40 04/06/17 07:40 04/06/17 07:40 04/06/17 07:40 04/06/17 07:40 Intake and Output: 04/06/17 04/06/17 06:59 18:59 Output Total 300 Balance -300 - Medications Medications: Current Medications Acetaminophen (Tylenol 325mg Tab) 650 mg PO Q6 PRN PRN Reason: Pain, moderate (4-7) Last Admin: 03/28/17 13:21 Dose: 650 mg Acetaminophen (Tylenol 325 Mg Supp) 325 mg [place] Q6 PRN PRN Reason: Fever >100.4 F Last Admin: 03/31/17 09:36 Dose: 325 mg Dextrose (Dextrose 50% Inj) 0 ml IV STAT PRN; Protocol PRN Reason: Hyglycemia Protocol Last Admin: 04/05/17 06:45 Dose: 50 ml Dextrose (Glutose 15) 0 gm PO ONCE PRN; Protocol PRN Reason: Hypoglycemia Protocol Last Admin: 04/01/17 21:54 Dose: 15 gm Ergocalciferol (Drisdol 50,000 Intl Units Cap) 1 cap PO Q7D [facility]INA Last Admin: 03/31/17 00:35 Dose: 1 cap Glucagon (Glucagen Diagnostic Kit) 0 mg IM STAT PRN; Protocol PRN Reason: Hypoglycemia Protocol Hydromorphone HCl (Dilaudid) 0.5 mg IVP Q4H PRN PRN Reason: Pain, severe (8-10) Last Admin: 04/06/17 10:51 Dose: 0.5 mg Dextrose/Sodium Chloride (Dextrose 5%/0.45% Ns 1000 Ml) 1,000 mls @ 50 mls/hr IV .Q20H [facility] Last Admin: 04/06/17 04:45 Dose: Not Given Sodium Chloride (Sodium Chloride 0.9%) 1,000 mls @ 50 mls/hr IV .Q20H [facility]INA Last Admin: 04/06/17 10:48 Dose: 50 mls/hr Insulin Detemir (Levemir) 14 unit SC BID@0800,2200 [facility] Last Admin: 04/06/17 08:18 Dose: Not Given Insulin Glargine (Lantus) 25 unit SC HS [facility] Last Admin: 03/16/17 22:27 Dose: Not Given Insulin Human Regular (Novolin R) 9 unit SC AC [facility] Last Admin: 04/06/17 15:18 Dose: Not Given Lisinopril (Zestril) 20 mg PO DAILY [facility] Last Admin: 04/06/17 10:22 Dose: Not Given Pantoprazole Sodium (Protonix Ec Tab) 40 mg PO DAILY [facility] Last Admin: 04/06/17 10:22 Dose: Not Given Vitamin B Complex/Vit C/Folic Acid (Nephro-Kevin) 1 tab PO 0800 [facility] Last Admin: 04/06/17 08:18 Dose: Not Given - Labs Labs: 04/06/17 06:14 04/06/17 07:32 PT 12.0 SECONDS (9.7-12.2) 03/30/17 08:03 INR 1.1 03/30/17 08:03 APTT 26 SECONDS (21-34) 03/30/17 08:03 - Additional Findings Additional findings: Appears: Chronically Ill - Head Exam Head Exam: ATRAUMATIC, NORMAL INSPECTION, NORMOCEPHALIC - Eye Exam Eye Exam: EOMI Pupil Exam: NORMAL ACCOMODATION - ENT Exam ENT Exam: Mucous Membranes Moist - Respiratory Exam Respiratory Exam: Clear to Ausculation Bilateral, NORMAL BREATHING PATTERN - Cardiovascular Exam Cardiovascular Exam: REGULAR RHYTHM - GI/Abdominal Exam GI & Abdominal Exam: Soft, Normal Bowel Sounds. absent: Distended, Tenderness - Extremities Exam Additional comments: status post L. BKA. Dressing and brace in place - Skin Skin Exam: Dry, Intact, Normal Color, Warm Assessment and Plan - Assessment and Plan (Free Text) Assessment: Intermittent Altered Mental Status -likely secondary to poor glycemic control - Neurology on board (Dr. Aguirre) - CT head negative for acute infarction - Discontinued all pain medications, tyelnol prn Cardiac Comorbidties -CHF, HTN. PVD - Echo showed 61% LVEF 03/09/17 - Vascular surgery on board (Dr. Broussard) for PVD - Lisonopril 20mg PO QD - Crestor 10 mg PO HS - R femoral line placed in ICU has been removed S/P L. BKA - dressing changes per surgery - keep brace on Dyspnea - Patient has had prior episodes of respiratory distress in the past secondary to effusion. - S/P thoracentesis on 03/27: 900 cc of clear fluid removed from left lung - Most recent CXR 03/27: Decreased left pleural effusion. No pneumothorax. Stable small right pleural effusion. - O2 Sat of 100% on NC 5 L - BiPAP off ESRD on hemodialysis - Pt undergoes hemodialysis //Sat, will dialyze daily to resolve altered mentation - Multiple electrolyte abnormalities throughout this admission, monitor CMPs, magnesium and phosphorous daily - PICC line inserted by IR 03/23/17 now functional, R femoral line removed - Permacath removed by surgery - Ergocalcierol 1 capsule PO Q7D - Procrit - Vancomycin 1gram IVPB 3 times weeks post dialysis - 04/05: AVF clotted. NPO, F/U Cr in AM if normal patient can eat. OR 04/06 Type 2 Diabetes -poorly controlled - Accuchecks ACHS - Regular Insulin high dose protocol for coverahe - Lantus 25u SC HS - A1c of 8.9 02/18/17 Failure to thrive - Hx of dysphagia - GI consult on board ([place]) - As of 03/19/17 , GI did not recommend PEG placement due to patient's significant medical comorbidities - Soft diet - C diff neg (02/28) Anemia of chronic disease - Hgb stable. Cont to monitor - Procrit 10,000U IV on dialysis days - Ferrlecit 125mg IVPB TTS Peripheral vascular Disease -Low ext arterial duplex (02/04/17) -occlusion R post tib artery, 50-75% stenosis right mid popliteal & proximal anterior tib arteries -occlusion of left post tib artery, >75% stenosis left proximal ant tibial artery, 50-75% stenosis left distal SFA & proximal popliteal a. Prophylactic Measure - Protonix 40mg PO daily - Heparin 5000 U SC Q12 - Nephro-kevin vitamins - SCDs Planning on D/C patient to [place]. No other updates at this time.
--- NOTE | 2017-04-06 16:53 | CP.PCM.PN ---
Subjective - Date & Time of Evaluation Date of Evaluation: 04/06/17 Time of Evaluation: 07:00 - Subjective Subjective: Vascular Surgery Note for Dr. Broussard Patient seen and examined at bedside. No acute event overnight. Patient is resting in bed comfortably with occasional moaning. ROS unobtainable. Objective - Vital Signs/Intake and Output Vital Signs (last 24 hours): Temp Pulse Resp BP Pulse Ox 97.9 F 110 H 20 153/77 H 98 04/06/17 15:00 04/06/17 15:00 04/06/17 15:00 04/06/17 15:00 04/06/17 15:00 Intake and Output: 04/06/17 04/06/17 06:59 18:59 Output Total 300 Balance -300 - Medications Medications: Current Medications Acetaminophen (Tylenol 325mg Tab) 650 mg PO Q6 PRN PRN Reason: Pain, moderate (4-7) Last Admin: 03/28/17 13:21 Dose: 650 mg Acetaminophen (Tylenol 325 Mg Supp) 325 mg [place] Q6 PRN PRN Reason: Fever >100.4 F Last Admin: 03/31/17 09:36 Dose: 325 mg Dextrose (Dextrose 50% Inj) 0 ml IV STAT PRN; Protocol PRN Reason: Hyglycemia Protocol Last Admin: 04/05/17 06:45 Dose: 50 ml Dextrose (Glutose 15) 0 gm PO ONCE PRN; Protocol PRN Reason: Hypoglycemia Protocol Last Admin: 04/01/17 21:54 Dose: 15 gm Ergocalciferol (Drisdol 50,000 Intl Units Cap) 1 cap PO Q7D [facility]INA Last Admin: 03/31/17 00:35 Dose: 1 cap Glucagon (Glucagen Diagnostic Kit) 0 mg IM STAT PRN; Protocol PRN Reason: Hypoglycemia Protocol Hydromorphone HCl (Dilaudid) 0.5 mg IVP Q4H PRN PRN Reason: Pain, severe (8-10) Last Admin: 04/06/17 10:51 Dose: 0.5 mg Dextrose/Sodium Chloride (Dextrose 5%/0.45% Ns 1000 Ml) 1,000 mls @ 50 mls/hr IV .Q20H ELINA Last Admin: 04/06/17 04:45 Dose: Not Given Sodium Chloride (Sodium Chloride 0.9%) 1,000 mls @ 50 mls/hr IV .Q20H [facility] Last Admin: 04/06/17 10:48 Dose: 50 mls/hr Insulin Detemir (Levemir) 14 unit SC BID@0800,2200 [facility] Last Admin: 04/06/17 08:18 Dose: Not Given Insulin Glargine (Lantus) 25 unit SC HS [facility] Last Admin: 03/16/17 22:27 Dose: Not Given Insulin Human Regular (Novolin R) 9 unit SC AC [facility] Last Admin: 04/06/17 15:18 Dose: Not Given Lisinopril (Zestril) 20 mg PO DAILY [facility] Last Admin: 04/06/17 10:22 Dose: Not Given Pantoprazole Sodium (Protonix Ec Tab) 40 mg PO DAILY [facility] Last Admin: 04/06/17 10:22 Dose: Not Given Vitamin B Complex/Vit C/Folic Acid (Nephro-Alonzo) 1 tab PO 0800 [facility] Last Admin: 04/06/17 08:18 Dose: Not Given - Labs Labs: 04/06/17 06:14 04/06/17 07:32 PT 12.0 SECONDS (9.7-12.2) 03/30/17 08:03 INR 1.1 03/30/17 08:03 APTT 26 SECONDS (21-34) 03/30/17 08:03 - Constitutional Appears: No Acute Distress - Head Exam Head Exam: ATRAUMATIC, NORMOCEPHALIC - Eye Exam Eye Exam: Normal appearance - ENT Exam ENT Exam: Mucous Membranes Moist - Respiratory Exam Respiratory Exam: NORMAL BREATHING PATTERN - Cardiovascular Exam Cardiovascular Exam: REGULAR RHYTHM - Extremities Exam Additional comments: LUDesi avf has no palpable thrill or audible bruit PICC line in RUE - Neurological Exam Neurological Exam: Awake - Psychiatric Exam Additional comments: labile mood and affect - Skin Skin Exam: Dry, Intact, Normal Color, Warm Assessment and Plan - Assessment and Plan (Free Text) Plan: 71 F with clotted LUE AVF -NPO past MN for AVF declotting and possible Permacath placement -Monitor Glucose level and address appropriately -Management as per primary -Discussed with Dr. Bobo Sotelo PGY1
--- NOTE | 2017-04-06 19:45 | CP.PCM.PN ---
Subjective - Date & Time of Evaluation Date of Evaluation: 04/06/17 Time of Evaluation: 15:00 - Subjective Subjective: SEEN ON RENAL F/U SON ON THE BED SIDE .. CASE D/W HIM PT IS ASKING PRIMARILY FOR WATER STATES APPETITE LITTLE BETTER PER SON ON HD T T S 24 H URINE COLLEXTION : CREAT CLEARANCE 9 ML / M Objective - Vital Signs/Intake and Output Vital Signs (last 24 hours): Temp Pulse Resp BP Pulse Ox 97.9 F 110 H 20 153/77 H 98 04/06/17 15:00 04/06/17 15:00 04/06/17 15:00 04/06/17 15:00 04/06/17 15:00 - Medications Medications: Current Medications Acetaminophen (Tylenol 325mg Tab) 650 mg PO Q6 PRN PRN Reason: Pain, moderate (4-7) Last Admin: 03/28/17 13:21 Dose: 650 mg Acetaminophen (Tylenol 325 Mg Supp) 325 mg [place] Q6 PRN PRN Reason: Fever >100.4 F Last Admin: 03/31/17 09:36 Dose: 325 mg Dextrose (Dextrose 50% Inj) 0 ml IV STAT PRN; Protocol PRN Reason: Hyglycemia Protocol Last Admin: 04/05/17 06:45 Dose: 50 ml Dextrose (Glutose 15) 0 gm PO ONCE PRN; Protocol PRN Reason: Hypoglycemia Protocol Last Admin: 04/01/17 21:54 Dose: 15 gm Ergocalciferol (Drisdol 50,000 Intl Units Cap) 1 cap PO Q7D [facility] Last Admin: 03/31/17 00:35 Dose: 1 cap Glucagon (Glucagen Diagnostic Kit) 0 mg IM STAT PRN; Protocol PRN Reason: Hypoglycemia Protocol Hydromorphone HCl (Dilaudid) 0.5 mg IVP Q4H PRN PRN Reason: Pain, severe (8-10) Last Admin: 04/06/17 10:51 Dose: 0.5 mg Dextrose/Sodium Chloride (Dextrose 5%/0.45% Ns 1000 Ml) 1,000 mls @ 50 mls/hr IV .Q20H [facility] Last Admin: 04/06/17 04:45 Dose: Not Given Sodium Chloride (Sodium Chloride 0.9%) 1,000 mls @ 50 mls/hr IV .Q20H [facility] Last Admin: 04/06/17 10:48 Dose: 50 mls/hr Insulin Detemir (Levemir) 14 unit SC BID@0800,2200 [facility] Last Admin: 04/06/17 08:18 Dose: Not Given Insulin Glargine (Lantus) 25 unit SC HS [facility] Last Admin: 03/16/17 22:27 Dose: Not Given Insulin Human Regular (Novolin R) 9 unit SC AC [facility] Last Admin: 04/06/17 15:18 Dose: Not Given Lisinopril (Zestril) 20 mg PO DAILY [facility] Last Admin: 04/06/17 10:22 Dose: Not Given Pantoprazole Sodium (Protonix Ec Tab) 40 mg PO DAILY [facility] Last Admin: 04/06/17 10:22 Dose: Not Given Vitamin B Complex/Vit C/Folic Acid (Nephro-Alonzo) 1 tab PO 0800 [facility] Last Admin: 04/06/17 08:18 Dose: Not Given - Labs Labs: 04/06/17 06:14 04/06/17 07:32 PT 12.0 SECONDS (9.7-12.2) 03/30/17 08:03 INR 1.1 03/30/17 08:03 APTT 26 SECONDS (21-34) 03/30/17 08:03 Assessment and Plan - Assessment and Plan (Free Text) Assessment: ESRD ON HD T T S .. TO BE C/O ANEMIA OF CKD .. ON EPO 10.000 AND FERRLICIT ON HD MULTIPLE CO MORBIDITIES P : C/O CURRENT CARE C/O PRESENT MANAGEMENT FOR AVF DECLOTTING
[2017-04-07] MEDS: Dextrose 5%/0.45% NS 1,000 ML IV SCH (01:07)
[2017-04-07] MEDS: Ergocalciferol 50,000 Intl Units Cap PO SCH (01:17)
[2017-04-07] MEDS: HYDROmorphone 0.5 mg/0.5 ml ISec IVP PRN ×2 (03:10→18:49)
[2017-04-07] MEDS: Sodium Chloride 0.9% 1,000 ML IV SCH (05:32)
[2017-04-07 06:31] LABS: BASO # 0.1 K/uL (0.0-0.2); BASO % 0.8 % (0.0-2.0); EOS # 0.1 K/uL (0.0-0.7); EOS % 0.8 % (0.0-4.0); HEMATOCRIT 27.9 % (34.0-47.0); LYMPH # 1.2 K/uL (1.0-4.3); LYMPH % 7.5 % (20.0-40.0); MEAN CORPUSCULAR HEMOGLOBIN 30.8 pg (27.0-31.0); MEAN CORPUSCULAR HGB CONC 31.7 g/dL (33.0-37.0); MEAN PLATELET VOLUME 7.8 fL (7.2-11.7); MONO # 1.2 K/uL (0.0-0.8); MONO % 7.3 % (0.0-10.0); PLATELET COUNT 241 K/uL (130-400); RED CELL DISTRIBUTION WIDTH 19.9 % (11.5-14.5); WHITE BLOOD COUNT 16.2 K/uL (4.8-10.8)
[2017-04-07 07:11] LABS: POTASSIUM 4.3 mmol/L (3.6-5.2)
[2017-04-07 07:13] LABS: ALB/GLOB RATIO 0.9 (1.0-2.1); BILIRUBIN,TOTAL 0.6 mg/dL (0.2-1.3); TOTAL PROTEIN 4.5 g/dL (6.3-8.3)
[2017-04-07 07:14] LABS: CALCIUM 7.1 mg/dl (8.6-10.4)
[2017-04-07] MEDS ORDERED: Phenylephrine 10 mg/ml Inj ONE (07:37)
[2017-04-07] MEDS ORDERED: Midazolam 2 MG/2 ML VIAL ONE (07:37)
[2017-04-07] MEDS ORDERED: Propofol 10 mg/ml Inj (20 ML) ONE (07:38)
[2017-04-07] MEDS ORDERED: Succinylcholine Chloride 20 mg/ml Syr (5 ml) IV ONE (07:38)
[2017-04-07] MEDS: (Novolin R) Insulin Human Regular 100 units/ml vial SC SCH ×3 (07:52→18:07)
[2017-04-07] MEDS: Multivitamin Vitamin B Complex (Nephro-Vite) Tab PO SCH (07:52)
[2017-04-07] MEDS: Insulin Detemir 100 units/ml Vial (Levemir) SC SCH ×2 (07:52→21:50)
[2017-04-07] MEDS ORDERED: DiphenhydrAMINE 50 mg/ml Inj ONE (07:56)
[2017-04-07 08:10] LABS: EOSINOPHIL 1 % (0-4); NEUTROPHIL 83 % (50-75); TOTAL CELLS COUNTED 100
--- NOTE | 2017-04-07 08:18 | CP.PCM.PN ---
Subjective - Date & Time of Evaluation Date of Evaluation: 04/07/17 Time of Evaluation: 06:55 - Subjective Subjective: Vascular Surgery Note for Dr. Broussard Patient seen and examined at bedside. Patient was NPO past midnight for IR procedure. Patient had left upper extremity fistulogram, thrombolysis and percutaneous transluminal angioplasty x 2. Imaging from procedure showed good flow. Patient has palpable thrill and audible bruit. Patient is doing fine. Objective - Vital Signs/Intake and Output Vital Signs (last 24 hours): Temp Pulse Resp BP Pulse Ox 98.7 F 109 H 20 151/67 H 92 L 04/07/17 07:44 04/07/17 07:44 04/07/17 07:44 04/07/17 07:44 04/07/17 07:44 Intake and Output: 04/07/17 04/07/17 06:59 18:59 Intake Total 900 Balance 900 - Medications Medications: Current Medications Acetaminophen (Tylenol 325mg Tab) 650 mg PO Q6 PRN PRN Reason: Pain, moderate (4-7) Last Admin: 03/28/17 13:21 Dose: 650 mg Acetaminophen (Tylenol 325 Mg Supp) 325 mg [place] Q6 PRN PRN Reason: Fever >100.4 F Last Admin: 03/31/17 09:36 Dose: 325 mg Dextrose (Dextrose 50% Inj) 0 ml IV STAT PRN; Protocol PRN Reason: Hyglycemia Protocol Last Admin: 04/05/17 06:45 Dose: 50 ml Dextrose (Glutose 15) 0 gm PO ONCE PRN; Protocol PRN Reason: Hypoglycemia Protocol Last Admin: 04/01/17 21:54 Dose: 15 gm Ergocalciferol (Drisdol 50,000 Intl Units Cap) 1 cap PO Q7D [facility] Last Admin: 04/07/17 01:17 Dose: 1 cap Glucagon (Glucagen Diagnostic Kit) 0 mg IM STAT PRN; Protocol PRN Reason: Hypoglycemia Protocol Hydromorphone HCl (Dilaudid) 0.5 mg IVP Q4H PRN PRN Reason: Pain, severe (8-10) Last Admin: 04/07/17 03:10 Dose: 0.5 mg Dextrose/Sodium Chloride (Dextrose 5%/0.45% Ns 1000 Ml) 1,000 mls @ 50 mls/hr IV .Q20H [facility] Last Admin: 04/07/17 01:07 Dose: Not Given Sodium Chloride (Sodium Chloride 0.9%) 1,000 mls @ 50 mls/hr IV .Q20H [facility] Last Admin: 04/07/17 05:32 Dose: 50 mls/hr Insulin Detemir (Levemir) 14 unit SC BID@0800,2200 [facility] Last Admin: 04/07/17 07:52 Dose: Not Given Insulin Glargine (Lantus) 25 unit SC HS [facility] Last Admin: 03/16/17 22:27 Dose: Not Given Insulin Human Regular (Novolin R) 9 unit SC AC [facility] Last Admin: 04/07/17 07:52 Dose: Not Given Lisinopril (Zestril) 20 mg PO DAILY [facility] Last Admin: 04/06/17 10:22 Dose: Not Given Pantoprazole Sodium (Protonix Ec Tab) 40 mg PO DAILY [facility] Last Admin: 04/06/17 10:22 Dose: Not Given Vitamin B Complex/Vit C/Folic Acid (Nephro-Alonzo) 1 tab PO 0800 [facility] Last Admin: 04/07/17 07:52 Dose: Not Given - Labs Labs: 04/07/17 06:17 04/07/17 06:17 PT 12.0 SECONDS (9.7-12.2) 03/30/17 08:03 INR 1.1 03/30/17 08:03 APTT 26 SECONDS (21-34) 03/30/17 08:03 - Constitutional Appears: No Acute Distress - Head Exam Head Exam: ATRAUMATIC, NORMOCEPHALIC - Eye Exam Eye Exam: Normal appearance - ENT Exam ENT Exam: Mucous Membranes Moist - Respiratory Exam Respiratory Exam: NORMAL BREATHING PATTERN - Cardiovascular Exam Cardiovascular Exam: REGULAR RHYTHM - Extremities Exam Additional comments: RUE PICC line LUE AVF now with palpable thrill and audible bruit s/p procedure - Neurological Exam Neurological Exam: Alert, Awake - Psychiatric Exam Psychiatric exam: Flat Affect - Skin Skin Exam: Dry, Normal Color, Warm Assessment and Plan - Assessment and Plan (Free Text) Plan: 71 F who had clotted LUE AVF, s/p left upper extremity fistulogram, thrombolysis and percutaneous transluminal angioplasty x 2 POD#0 -Dialysis with AVF -No further surgical intervention at this time -Management as per primary -Discussed with Dr. Bobo Sotelo PGY1
[2017-04-07] MEDS ORDERED: Iodixanol 320 MG/ML 100 ML BOTTLE IV ONE (08:39)
--- NOTE | 2017-04-07 10:30 | CP.PCM.PN ---
Subjective - Date & Time of Evaluation Date of Evaluation: 04/07/17 Time of Evaluation: 10:28 - Subjective Subjective: Patient seen and examined OR today for AVF clot Continue current management No other updates at this time. Objective - Vital Signs/Intake and Output Vital Signs (last 24 hours): Temp Pulse Resp BP Pulse Ox 98.7 F 109 H 20 151/67 H 92 L 04/07/17 07:44 04/07/17 07:44 04/07/17 07:44 04/07/17 07:44 04/07/17 07:44 Intake and Output: 04/07/17 04/07/17 06:59 18:59 Intake Total 900 Balance 900 - Medications Medications: Current Medications Acetaminophen (Tylenol 325mg Tab) 650 mg PO Q6 PRN PRN Reason: Pain, moderate (4-7) Last Admin: 03/28/17 13:21 Dose: 650 mg Acetaminophen (Tylenol 325 Mg Supp) 325 mg [place] Q6 PRN PRN Reason: Fever >100.4 F Last Admin: 03/31/17 09:36 Dose: 325 mg Dextrose (Dextrose 50% Inj) 0 ml IV STAT PRN; Protocol PRN Reason: Hyglycemia Protocol Last Admin: 04/05/17 06:45 Dose: 50 ml Dextrose (Glutose 15) 0 gm PO ONCE PRN; Protocol PRN Reason: Hypoglycemia Protocol Last Admin: 04/01/17 21:54 Dose: 15 gm Ergocalciferol (Drisdol 50,000 Intl Units Cap) 1 cap PO Q7D [facility] Last Admin: 04/07/17 01:17 Dose: 1 cap Glucagon (Glucagen Diagnostic Kit) 0 mg IM STAT PRN; Protocol PRN Reason: Hypoglycemia Protocol Hydromorphone HCl (Dilaudid) 0.5 mg IVP Q4H PRN PRN Reason: Pain, severe (8-10) Last Admin: 04/07/17 03:10 Dose: 0.5 mg Insulin Detemir (Levemir) 14 unit SC BID@0800,2200 [facility] Last Admin: 04/07/17 07:52 Dose: Not Given Insulin Glargine (Lantus) 25 unit SC HS [facility] Last Admin: 03/16/17 22:27 Dose: Not Given Insulin Human Regular (Novolin R) 9 unit SC AC [facility] Last Admin: 04/07/17 07:52 Dose: Not Given Lisinopril (Zestril) 20 mg PO DAILY [facility] Last Admin: 04/06/17 10:22 Dose: Not Given Pantoprazole Sodium (Protonix Ec Tab) 40 mg PO DAILY [facility] Last Admin: 04/06/17 10:22 Dose: Not Given Vitamin B Complex/Vit C/Folic Acid (Nephro-Kevin) 1 tab PO 0800 [facility] Last Admin: 04/07/17 07:52 Dose: Not Given - Labs Labs: 04/07/17 06:17 04/07/17 06:17 PT 12.0 SECONDS (9.7-12.2) 03/30/17 08:03 INR 1.1 03/30/17 08:03 APTT 26 SECONDS (21-34) 03/30/17 08:03 - Additional Findings Additional findings: Appears: Chronically Ill - Head Exam Head Exam: ATRAUMATIC, NORMAL INSPECTION, NORMOCEPHALIC - Eye Exam Eye Exam: EOMI Pupil Exam: NORMAL ACCOMODATION - ENT Exam ENT Exam: Mucous Membranes Moist - Respiratory Exam Respiratory Exam: Clear to Ausculation Bilateral, NORMAL BREATHING PATTERN - Cardiovascular Exam Cardiovascular Exam: REGULAR RHYTHM - GI/Abdominal Exam GI & Abdominal Exam: Soft, Normal Bowel Sounds. absent: Distended, Tenderness - Extremities Exam Additional comments: status post L. BKA. Dressing and brace in place - Skin Skin Exam: Dry, Intact, Normal Color, Warm Assessment and Plan - Assessment and Plan (Free Text) Assessment: Intermittent Altered Mental Status -likely secondary to poor glycemic control - Neurology on board (Dr. Agurire) - CT head negative for acute infarction - Discontinued all pain medications, tyelnol prn Cardiac Comorbidties -CHF, HTN. PVD - Echo showed 61% LVEF 03/09/17 - Vascular surgery on board (Dr. Broussard) for PVD - Lisonopril 20mg PO QD - Crestor 10 mg PO HS - R femoral line placed in ICU has been removed S/P L. BKA - dressing changes per surgery - keep brace on Dyspnea - Patient has had prior episodes of respiratory distress in the past secondary to effusion. - S/P thoracentesis on 03/27: 900 cc of clear fluid removed from left lung - Most recent CXR 03/27: Decreased left pleural effusion. No pneumothorax. Stable small right pleural effusion. - O2 Sat of 100% on NC 5 L - BiPAP off ESRD on hemodialysis - Pt undergoes hemodialysis /Th/Thu, will dialyze daily to resolve altered mentation - Multiple electrolyte abnormalities throughout this admission, monitor CMPs, magnesium and phosphorous daily - PICC line inserted by IR 03/23/17 now functional, R femoral line removed - Permacath removed by surgery - Ergocalcierol 1 capsule PO Q7D - Procrit - Vancomycin 1gram IVPB 3 times weeks post dialysis - 04/05: AVF clotted. NPO, F/U Cr in AM if normal patient can eat. OR 04/06 Type 2 Diabetes -poorly controlled - Accuchecks ACHS - Regular Insulin high dose protocol for coverahe - Lantus 25u SC HS - A1c of 8.9 02/18/17 Failure to thrive - Hx of dysphagia - GI consult on board ([place]) - As of 03/19/17 , GI did not recommend PEG placement due to patient's significant medical comorbidities - Soft diet - C diff neg (02/28) Anemia of chronic disease - Hgb stable. Cont to monitor - Procrit 10,000U IV on dialysis days - Ferrlecit 125mg IVPB TTS Peripheral vascular Disease -Low ext arterial duplex (02/04/17) -occlusion R post tib artery, 50-75% stenosis right mid popliteal & proximal anterior tib arteries -occlusion of left post tib artery, >75% stenosis left proximal ant tibial artery, 50-75% stenosis left distal SFA & proximal popliteal a. Prophylactic Measure - Protonix 40mg PO daily - Heparin 5000 U SC Q12 - Nephro-kevin vitamins - SCDs Planning on D/C patient to [place]. No other updates at this time.
--- NOTE | 2017-04-07 11:57 | PCM.SURG1 ---
Surgeon's Initial Post Op Note - Surgeon's Notes Surgeon: Terry Aly MD Cv Tech: None Type of Anesthesia: MAC Pre-Operative Diagnosis: Clotted LUE AVF Operative Findings: thrombosed LUE AVF Post-Operative Diagnosis: widely patent LUE AVF w/ strong palpable thrill Operation Performed: 1) LUE AV fistulography; 2) pharmacomechanical thrombolysis ; 3) [facility] REPRESENTATIVE x2 Specimen/Specimens Removed: N/A Estimated Blood Loss: EBL {In ML}: 50 Date of Surgery/Procedure: 04/07/17 Time of Surgery/Procedure: 08:30
[2017-04-07] MEDS: Pantoprazole 40 mg EC Tab PO SCH (13:49)
--- NOTE | 2017-04-07 19:30 | CP.PCM.PN ---
Subjective - Date & Time of Evaluation Date of Evaluation: 04/07/17 Time of Evaluation: 15:00 - Subjective Subjective: SEEN ON RENAL F/U SEEN ON HD FEELS THE SAME ALL PREVIOUS EMR REVIEWED Objective - Vital Signs/Intake and Output Vital Signs (last 24 hours): Temp Pulse Resp BP Pulse Ox 98 F 97 H 20 110/62 95 04/07/17 18:21 04/07/17 18:21 04/07/17 18:21 04/07/17 18:21 04/07/17 18:21 - Medications Medications: Current Medications Acetaminophen (Tylenol 325mg Tab) 650 mg PO Q6 PRN PRN Reason: Pain, moderate (4-7) Last Admin: 03/28/17 13:21 Dose: 650 mg Acetaminophen (Tylenol 325 Mg Supp) 325 mg [place] Q6 PRN PRN Reason: Fever >100.4 F Last Admin: 03/31/17 09:36 Dose: 325 mg Dextrose (Dextrose 50% Inj) 0 ml IV STAT PRN; Protocol PRN Reason: Hyglycemia Protocol Last Admin: 04/05/17 06:45 Dose: 50 ml Dextrose (Glutose 15) 0 gm PO ONCE PRN; Protocol PRN Reason: Hypoglycemia Protocol Last Admin: 04/01/17 21:54 Dose: 15 gm Ergocalciferol (Drisdol 50,000 Intl Units Cap) 1 cap PO Q7D [facility] Last Admin: 04/07/17 01:17 Dose: 1 cap Glucagon (Glucagen Diagnostic Kit) 0 mg IM STAT PRN; Protocol PRN Reason: Hypoglycemia Protocol Hydromorphone HCl (Dilaudid) 0.5 mg IVP Q4H PRN PRN Reason: Pain, severe (8-10) Last Admin: 04/07/17 18:49 Dose: 0.5 mg Insulin Detemir (Levemir) 14 unit SC BID@0800,2200 [facility] Last Admin: 04/07/17 07:52 Dose: Not Given Insulin Glargine (Lantus) 25 unit SC HS [facility] Last Admin: 03/16/17 22:27 Dose: Not Given Insulin Human Regular (Novolin R) 9 unit SC AC [facility] Last Admin: 04/07/17 18:07 Dose: Not Given Lisinopril (Zestril) 20 mg PO DAILY [facility] Last Admin: 04/07/17 13:50 Dose: Not Given Pantoprazole Sodium (Protonix Ec Tab) 40 mg PO DAILY [facility] Last Admin: 04/07/17 13:49 Dose: Not Given Vitamin B Complex/Vit C/Folic Acid (Nephro-Alonoz) 1 tab PO 0800 [facility] Last Admin: 04/07/17 07:52 Dose: Not Given - Labs Labs: 04/07/17 06:17 04/07/17 06:17 PT 12.0 SECONDS (9.7-12.2) 03/30/17 08:03 INR 1.1 03/30/17 08:03 APTT 26 SECONDS (21-34) 03/30/17 08:03 Assessment and Plan - Assessment and Plan (Free Text) Assessment: ESRD ON HD T T S .. TO BE C/O ANEMIA OF CKD .. ON EPO AND FERRLICIT MLTIPLE CO MORBIDITIES C/O CURRENT CARE
[2017-04-08] MEDS: (Novolin R) Insulin Human Regular 100 units/ml vial SC SCH ×2 (08:00→12:05)
[2017-04-08] MEDS: Multivitamin Vitamin B Complex (Nephro-Vite) Tab PO SCH (09:37)
[2017-04-08] MEDS: Pantoprazole 40 mg EC Tab PO SCH (09:38)
[2017-04-08] MEDS: Insulin Detemir 100 units/ml Vial (Levemir) SC SCH ×2 (09:39→21:23)
[2017-04-08] MEDS: HYDROmorphone 0.5 mg/0.5 ml ISec IVP PRN ×2 (09:41→17:13)
[2017-04-08] MEDS ORDERED: Dextrose 50% SYRINGE Inj (50 ml) ONE ×2 (11:56→16:09)
[2017-04-08] MEDS: Dextrose 50% SYRINGE Inj (50 ml) IV PRN (11:59)
--- NOTE | 2017-04-09 00:16 | CP.PCM.PN ---
Subjective - Date & Time of Evaluation Date of Evaluation: 04/08/17 Time of Evaluation: 14:00 - Subjective Subjective: SEEN ON RENAL F/U FEELS THE SAME .. IN NAD PER SON ON THE BED SIDE .. MOM IS EATING BETTER Objective - Vital Signs/Intake and Output Vital Signs (last 24 hours): Temp Pulse Resp BP Pulse Ox 100.2 F H 106 H 18 109/65 99 04/08/17 15:35 04/08/17 15:35 04/08/17 15:35 04/08/17 15:35 04/08/17 15:35 - Medications Medications: Current Medications Acetaminophen (Tylenol 325mg Tab) 650 mg PO Q6 PRN PRN Reason: Pain, moderate (4-7) Last Admin: 03/28/17 13:21 Dose: 650 mg Acetaminophen (Tylenol 325 Mg Supp) 325 mg [place] Q6 PRN PRN Reason: Fever >100.4 F Last Admin: 03/31/17 09:36 Dose: 325 mg Dextrose (Dextrose 50% Inj) 0 ml IV STAT PRN; Protocol PRN Reason: Hyglycemia Protocol Last Admin: 04/08/17 11:59 Dose: 50 ml Dextrose (Glutose 15) 0 gm PO ONCE PRN; Protocol PRN Reason: Hypoglycemia Protocol Last Admin: 04/01/17 21:54 Dose: 15 gm Glucagon (Glucagen Diagnostic Kit) 0 mg IM STAT PRN; Protocol PRN Reason: Hypoglycemia Protocol Hydromorphone HCl (Dilaudid) 0.5 mg IVP Q4H PRN PRN Reason: Pain, severe (8-10) Last Admin: 04/08/17 17:13 Dose: 0.5 mg Insulin Detemir (Levemir) 10 unit SC BID@0800,2200 [facility] Last Admin: 04/08/17 21:23 Dose: Not Given Insulin Glargine (Lantus) 25 unit SC HS [facility] Last Admin: 03/16/17 22:27 Dose: Not Given Insulin Human Regular (Novolin R) 5 unit SC AC [facility] Lisinopril (Zestril) 20 mg PO DAILY [facility] Last Admin: 04/08/17 09:37 Dose: 20 mg Pantoprazole Sodium (Protonix Ec Tab) 40 mg PO DAILY [facility] Last Admin: 04/08/17 09:38 Dose: 40 mg Vitamin B Complex/Vit C/Folic Acid (Nephro-Alonzo) 1 tab PO 0800 [facility] Last Admin: 04/08/17 09:37 Dose: 1 tab - Labs Labs: 04/07/17 06:17 04/07/17 06:17 PT 12.0 SECONDS (9.7-12.2) 03/30/17 08:03 INR 1.1 03/30/17 08:03 APTT 26 SECONDS (21-34) 03/30/17 08:03 Assessment and Plan - Assessment and Plan (Free Text) Assessment: ESRD ON HD T T S ..TO BE C/O ANEMIA OF CKD .. ON EPO AND FERRLICIT MULTIPLE CO MORBIDITIES P C/O CURRENT MANAGEMENT CLEAR FROM RENAL TO GO [place]
[2017-04-09] MEDS: HYDROmorphone 0.5 mg/0.5 ml ISec IVP PRN ×2 (05:26→18:54)
[2017-04-09] MEDS: Insulin Detemir 100 units/ml Vial (Levemir) SC SCH (08:24)
[2017-04-09] MEDS: (Novolin R) Insulin Human Regular 100 units/ml vial SC SCH ×3 (08:24→18:01)
[2017-04-09] MEDS: Multivitamin Vitamin B Complex (Nephro-Vite) Tab PO SCH (08:26)
--- NOTE | 2017-04-09 08:53 | CP.PCM.DIS ---
Provider - Provider Date of Admission: 02/18/17 06:22 Attending physician: Benson Myrick Jr, MD Primary care physician: Ramez Consults: ID: Amish Pod: DenBleyker Neuro: Micah Carla Vasc: Bobo GI: Albino Pulm: Alvaro Time Spent in preparation of Discharge (in minutes): 45 Hospital Course - Lab Results Lab Results: Micro Results 03/02/17 12:00 Other: Please Indicate Mycobacterial Culture - Preliminary 03/27/17 10:30 Pleural Fluid Gram Stain - Final 03/27/17 10:30 Pleural Fluid Anaerobic Culture - Final NO ANAEROBES ISOLATED. 03/27/17 10:30 Pleural Fluid Body Fluid Culture - Final No growth. 03/27/17 10:30 Pleural Fluid Fungal Culture - Preliminary NO FUNGUS GROWTH IN 1 WEEK. 03/29/17 21:08 Naris MRSA Culture - Final MRSA NOT DETECTED 03/02/17 12:00 Pleural Fluid Gram Stain - Final 03/02/17 12:00 Pleural Fluid Anaerobic Culture - Final NO ANAEROBES ISOLATED. 03/02/17 12:00 Pleural Fluid Body Fluid Culture - Final No growth. 03/02/17 12:00 Pleural Fluid Fungal Culture - Final NO FUNGUS GROWTH IN 4 WEEKS. 03/25/17 18:00 Blood Blood Culture - Final NO GROWTH AFTER 5 DAYS 03/25/17 18:00 Blood Gram Stain - Final TEST NOT PERFORMED 03/25/17 18:00 Blood Blood Culture - Final NO GROWTH AFTER 5 DAYS 03/25/17 18:00 Blood Gram Stain - Final TEST NOT PERFORMED 03/27/17 08:00 Foot - Left Gram Stain - Final 03/27/17 08:00 Foot - Left Wound Culture - Final Enterobacter Cloacae Ssp Cloac 03/25/17 16:00 Naris MRSA Culture (Admit) - Final MRSA NOT DETECTED 03/09/17 21:15 Blood-Venous Blood Culture - Final NO GROWTH AFTER 5 DAYS 03/09/17 21:15 Blood-Venous Gram Stain - Final TEST NOT PERFORMED 03/09/17 21:30 Blood-Venous Blood Culture - Final NO GROWTH AFTER 5 DAYS 03/09/17 21:30 Blood-Venous Gram Stain - Final TEST NOT PERFORMED 03/01/17 08:15 Blood-Venous Blood Culture - Final Coagulase Neg Staphylococcus 03/01/17 08:15 Blood-Venous Gram Stain - Final 03/01/17 08:30 Blood-Venous S.aureus & Coag-Neg Staph PNA FISH - Final 03/01/17 08:30 Blood-Venous Blood Culture - Final Coagulase Neg Staphylococcus 03/01/17 08:30 Blood-Venous Gram Stain - Final 02/27/17 08:00 Foot - Left Gram Stain - Final 02/27/17 08:00 Foot - Left Wound Culture - Final Enterobacter Cloacae Ssp Cloac Vancomycin Resistant E.faecium 02/18/17 05:19 Blood Blood Culture - Final NO GROWTH AFTER 5 DAYS 02/18/17 05:19 Blood Gram Stain - Final TEST NOT PERFORMED 02/18/17 05:19 Blood Blood Culture - Final NO GROWTH AFTER 5 DAYS 02/18/17 05:19 Blood Gram Stain - Final TEST NOT PERFORMED 02/18/17 20:36 Foot - Left Gram Stain - Final 02/18/17 20:36 Foot - Left Wound Culture - Final Serratia Marcescens Vancomycin Resistant E.faecium Most Recent Lab Values WBC 16.2 K/uL (4.8-10.8) H 04/07/17 06:17 RBC 2.87 Mil/uL (3.80-5.20) L 04/07/17 06:17 Hgb 8.9 g/dL (11.0-16.0) L 04/07/17 06:17 Hct 27.9 % (34.0-47.0) L 04/07/17 06:17 MCV 97.0 fL (81.0-99.0) D 04/07/17 06:17 MCH 30.8 pg (27.0-31.0) 04/07/17 06:17 MCHC 31.7 g/dL (33.0-37.0) L 04/07/17 06:17 RDW 19.9 % (11.5-14.5) H 04/07/17 06:17 Plt Count 241 K/uL (130-400) 04/07/17 06:17 MPV 7.8 fL (7.2-11.7) 04/07/17 06:17 Neut % (Auto) 83.6 % (50.0-75.0) H 04/07/17 06:17 Lymph % (Auto) 7.5 % (20.0-40.0) L 04/07/17 06:17 [place] % (Auto) 7.3 % (0.0-10.0) 04/07/17 06:17 Eos % (Auto) 0.8 % (0.0-4.0) 04/07/17 06:17 Baso % (Auto) 0.8 % (0.0-2.0) 04/07/17 06:17 Neut # 13.5 K/uL (1.8-7.0) H 04/07/17 06:17 Lymph # 1.2 K/uL (1.0-4.3) 04/07/17 06:17 [place] # 1.2 K/uL (0.0-0.8) H 04/07/17 06:17 Eos # 0.1 K/uL (0.0-0.7) 04/07/17 06:17 Baso # 0.1 K/uL (0.0-0.2) 04/07/17 06:17 Neutrophils % (Manual) 83 % (50-75) H 04/07/17 06:17 Band Neutrophils % 1 % (0-2) 03/30/17 08:03 Lymphocytes % (Manual) 8 % (20-40) L 04/07/17 06:17 Reactive Lymphs % 2 % (0-0) H 03/12/17 09:55 Monocytes % (Manual) 8 % (0-10) 04/07/17 06:17 Eosinophils % (Manual) 1 % (0-4) 04/07/17 06:17 Basophils % (Manual) 1 % (0-2) 03/10/17 10:08 Nucleated RBC % 1 % (0-0) H 02/25/17 06:54 Toxic Granulation Present 03/29/17 06:45 Platelet Estimate Normal (NORMAL) 04/07/17 06:17 Large Platelets Present 02/28/17 09:58 Polychromasia Slight 04/07/17 06:17 Hypochromasia (manual) Slight 04/07/17 06:17 Poikilocytosis (manual Slight 03/29/17 06:45 Basophilic Stippling Slight 03/19/17 10:56 Anisocytosis (manual) Slight 04/07/17 06:17 Microcytosis (manual) Slight 03/27/17 06:04 Macrocytosis (manual) Slight 04/06/17 06:14 Spherocytes Slight 03/14/17 09:32 Target Cells Slight 04/07/17 06:17 Tear Drop Cells Slight 03/21/17 09:59 Ovalocytes Slight 03/21/17 09:59 Karen Cells Slight 04/06/17 06:14 Schistocytes Slight 03/14/17 09:32 PT 12.0 SECONDS (9.7-12.2) 03/30/17 08:03 INR 1.1 03/30/17 08:03 APTT 26 SECONDS (21-34) 03/30/17 08:03 Puncture Site Rra 03/30/17 13:19 pCO2 36 mm/Hg (35-45) 03/30/17 13:19 pO2 107 mm/Hg (80-100) H 03/30/17 13:19 HCO3 28.0 mmol/L (21-28) 03/30/17 13:19 ABG pH 7.49 (7.35-7.45) H 03/30/17 13:19 ABG Total CO2 28.5 mmol/L (22-28) H 03/30/17 13:19 ABG O2 Saturation 99.3 % (95-98) H 03/30/17 13:19 ABG Base Excess 3.9 mmol/L (-2.0-3.0) H 03/30/17 13:19 ABG Hemoglobin 8.5 g/dL (11.7-17.4) L 03/30/17 13:19 ABG Carboxyhemoglobin 2.0 % (0.5-1.5) H 03/30/17 13:19 POC ABG HHb (Measured) 0.7 % (0.0-5.0) 03/30/17 13:19 ABG Methemoglobin 0.9 % (0.0-3.0) 03/30/17 13:19 Joey Test Pos 03/30/17 13:19 ABG Potassium 3.8 mmol/L (3.6-5.2) 03/27/17 05:10 VBG pH 7.41 (7.32-7.43) 03/01/17 07:39 VBG pCO2 42 mmHg (40-60) 03/01/17 07:39 VBG HCO3 26.3 mmol/L 03/01/17 07:39 VBG Total CO2 27.9 mmol/L (22-28) 03/01/17 07:39 VBG O2 Sat (Calc) 98.8 % (40-65) H 03/01/17 07:39 VBG Base Excess 1.7 mmol/L (0.0-2.0) 03/01/17 07:39 VBG Potassium 3.8 mmol/L (3.6-5.2) 03/01/17 07:39 A-a O2 Difference 11.0 mm/Hg 03/01/17 08:53 Respiratory Index 0.1 03/01/17 08:53 Hgb O2 Saturation 96.4 % (95.0-98.0) 03/30/17 13:19 Sodium 134.0 mmol/l (132-148) 03/27/17 05:10 Chloride 97.0 mmol/L (98-107) L 03/27/17 05:10 Glucose 232 mg/dl (65-105) H 03/27/17 05:10 Lactate 1.1 mmol/L (0.7-2.1) 03/27/17 05:10 Liter Flow 3.0 03/30/17 13:19 FiO2 27.0 % 03/01/17 08:53 Sodium 123 mmol/L (132-148) L 04/07/17 06:17 Potassium 4.3 mmol/L (3.6-5.2) 04/07/17 06:17 Chloride 95 mmol/L (98-107) L 04/07/17 06:17 Carbon Dioxide 22 mmol/L (22-30) 04/07/17 06:17 Anion Gap 10 (10-20) 04/07/17 06:17 BUN 34 mg/dL (7-17) H 04/07/17 06:17 Creatinine 1.5 mg/dL (0.7-1.2) H 04/07/17 06:17 Est GFR ( Amer) 41 04/07/17 06:17 Est GFR (Non-Af Amer) 34 04/07/17 06:17 POC Glucose (mg/dL) 399 mg/dL (65-110) H 04/09/17 06:06 Random Glucose 145 mg/dL (65-105) H 04/07/17 06:17 Hemoglobin A1c 8.9 % (4.2-6.5) H D 02/18/17 05:30 Lactic Acid 1.0 mmol/L (0.7-2.1) 03/05/17 11:02 Calcium 7.1 mg/dl (8.6-10.4) L 04/07/17 06:17 Phosphorus 3.7 mg/dL (2.5-4.5) 04/04/17 10:21 Magnesium 1.9 mg/dL (1.6-2.3) 04/04/17 10:21 Total Bilirubin 0.6 mg/dL (0.2-1.3) 04/07/17 06:17 AST 29 U/L (14-36) 04/07/17 06:17 ALT 20 U/L (9-52) 04/07/17 06:17 Alkaline Phosphatase 271 U/L (38-126) H 04/07/17 06:17 NT-Pro-B Natriuret Pep 65469 pg/mL (0-900) H 04/04/17 10:21 Total Protein 4.5 g/dL (6.3-8.3) L 04/07/17 06:17 Albumin 2.1 g/dL (3.5-5.0) L 04/07/17 06:17 Globulin 2.3 gm/dL (2.2-3.9) 04/07/17 06:17 Albumin/Globulin Ratio 0.9 (1.0-2.1) L 04/07/17 06:17 Triglycerides 134 mg/dL (0-149) 02/18/17 05:30 Cholesterol 157 mg/dL (0-199) 02/18/17 05:30 LDL Cholesterol Direct 62 mg/dL (0-129) 02/18/17 05:30 HDL Cholesterol 67 mg/dL (30-70) 02/18/17 05:30 25-OH Vitamin D Total < 12.8 NG/ML (30.0-100.0) L 04/04/17 10:21 Procalcitonin 3.50 NG/ML (0.19-0.49) H 03/25/17 15:04 Arterial Blood Potassium 3.8 mmol/L (3.6-5.2) 03/27/17 05:10 Venous Blood Potassium 3.8 mmol/L (3.6-5.2) 03/01/17 07:39 Urine Collection Time 24 HRS 04/06/17 07:32 Urine Total Volume 275 mL 04/06/17 07:32 Creatinine Clearance 9.0 mL/min (87-107) L 04/06/17 07:32 Fluid Source Pleural/thoracentesi 03/27/17 10:09 Fluid Appearance Clear (CLEAR) 03/27/17 10:09 Fluid WBC 39.0 /mm3 (0.0-300.0) 03/27/17 10:09 Fluid RBC 28.0 /mm3 (0.0-0.0) H 03/27/17 10:09 Fluid Tot Cell Count 100 (0-0) H 03/27/17 10:09 Fluid Neutrophils 10.0 % (0-0) H 03/27/17 10:09 Fluid Lymphocytes 87.0 % (0-0) H 03/27/17 10:09 Fld Monocyte/Macrophag 3 % (0-0) H 03/27/17 10:09 Fluid Diff Path Review 03/27/17 10:09 Fluid Comment 03/27/17 10:09 Pleural Total Protein <3.0 g/dL 03/27/17 10:09 Pleural LDH 32 U/L 03/27/17 10:09 Stool Sodium TNP 03/01/17 09:03 Stool Potassium TNP 03/01/17 09:03 Stool Chloride TNP 03/01/17 09:03 Stool Occult Blood Positive (NEGATIVE) H 02/26/17 16:55 Stool Leukocytes, Qual Negative (NEGATIVE) 03/01/17 Unknown C. difficile Ag & Toxin Negative (NEGATIVE) 03/27/17 09:00 Hep Bs Antigen Negative (NEGATIVE) 04/02/17 11:20 Hep Bs Antibody Negative (NEGATIVE) 04/02/17 11:20 Hep B Core IgM Ab Negative (NEGATIVE) 04/02/17 11:20 Hepatitis C Antibody Negative (NEGATIVE) 04/02/17 11:20 Blood Type B POSITIVE 03/30/17 08:03 Antibody Screen Negative 03/30/17 08:03 - Hospital Course Hospital Course: On Admission: This is a 71 year old female with PMHx ESRD (dialysis TTS), CHF, HTN, DM2, PVD, depression, anemia of chronic disease, chronic low back pain, glaucoma who presents this morning with altered mental status. Patient's last known well time was yesterday 02/17/17 before 5PM. Per , patient normally gets very fatigued and does not behave like usual after dialysis. Patient's baseline is such where she normally speaks properly. The stated that he left the patient alone, but at around 4AM this morning, the stated that he noticed that the patient was foaming at the mouth and gasping for air. The states that he measured her blood glucose and found it at 47. The stated that he proceeded to call the ambulance and states that the patient was given D50 with new glucose reading of 258. ROS unable to ascertain because the patient is unresponsive to stimuli. Hospital Course: 71 year old female with past medical history of ESRD (dialysis Thursday, , Thursday), CHF, HTN, DM2, Peripheral Vascular Disease, Depression, Anemia of Chronic Disease, Chronic low back pain, Glaucoma presented to the [facility] ED 1.5 months ago with altered mental status. Patients last known well time was the day before admission. Patients baseline according to is normal speech. The reports leaving the patient alone for some time, but at around 4am the day of admission he knocked the patient was foaming at the mouth and gasping for air. The measured her blood glucose and found it at 47. The reports afterwards he called and ambulance and states that the patient was given D50 and the new glucose reading was 258. On physical exam, patient was noted to have chronic venous stasis changes bilaterally in lower extremities and left foot ulcer with 10x5cm eschar spanning lateral plantar surface. Admission labs show an elevated Hemoglobin A1C of 8.9, likely due to uncontrolled diabetes, and elevated WBC count (34.4). Upon admission, Chest X-Ray revealed persistent moderate cardiomegaly and small left pleural effusion, Electrocardiogram revealed normal sinus rhythm, and Head CT revealed no definite territorial infarction but acute infarction may be CT occult. Podiatry consult recommended below knee amputation for the left foot due to its gangrenous nature. Surgery consulted and found in distal pulses in legs and recommended below the knee amputation due to the nature of the patients ulcer with eschar. The next day CT angiography of the Abdomen, Pelvis, and Lower Extremity with Contrast revealed severe bilateral lower extremity arterial runoff with 1 vessel likely remaining patent at the right, none is continuously patent at the left lower extremity below the knee, widely patent abdominal aorta and iliac arterial system with moderate right and mild to moderate left femoral arterial disease, and severe bilateral popliteal artery arterial disease. Neurology was consulted and assessed the patient with altered mental status most likely due to severe organic brain syndrome with underlying severe toxic metabolic encephalopathy and recommended MRI of the brain to rule any acute infarctions. Infectious Disease was consulted and found the patient to be C. Difficile positive. Nephrology was also consulted. Family refuses the recommendation of below the knee amputation and patient continued to be monitored. Family was requesting transfer to [facility] where hyperbaric therapy can be performed in order to attempt to salvage the leg. Patient is able to follow simple commands but is unable to communicate with properly formed words. A week later, Head CT revealed no intracranial mass, hemorrhage, or evidence of acute infarct; evidence of mild age appropriate atrophy and chronic white matter ischemic changes. Antibiotics were started as per request from Infectious Disease. Patients leukocytosis has has been trending down and glucose levels remain unstable. MRI Brain the 3 previous attempts were unsuccessful due to patient moving too much. Family after 1 week has decided to forego the transfer to [place] and have decided to take surgery recommendation in cleaning the wound and improving circulation with angiogram. Vascular procedure consisting of aortofemoral angiogram with selective catheterization of left femoral artery, balloon angioplasty of the left popliteal artery, and atherectomy and balloon angioplasty of the anterior tibial artery was performed. Debridement was also performed during week 1 of admission in addition to application of a wound vac. Patient continues to be seen by Infectious Disease and Nephrology. Patient continues to remain in altered mental state with expressive aphasia into week 2 of admission. Leukocytosis is trending down but still elevated and glucose levels are still unstable. Chest X-Ray reveals stable large pleural effusion and underlying compressive atelectasis/infiltrates. No change in Head CT impressions. Beginning of week 2 there was a Rapid Response and patient was found to have a blood glucose of 20. D50 was given and patient become responsive. Venous Duplex Scan of the Lower Extremity revealed no evidence of deep or superficial vein thrombosis of the lower extremities bilaterally. GI was consulted for poor food intake. Chest CT without contrast revealed moderate pericardial effusion, atherosclerotic calcifications of the aorta, and dense coronary artery calcifications. Wound vac was changed by surgery and is scheduled to be changed every several days. Ultrasound guided left thoracentesis was performed successfully. Pulmonology was consulted for the pleural effusion. Nephrology, Infectious Disease, GI, and Surgery continue to follow up with patient. Esophagogastroduodenoscopy was performed by GI for dysphagia showing gastric and duodenal ulcers. Palliative was consulted and scheduled a family meeting to discuss comfort, pain management, and initial recommendation for amputation. Patient continues to remain in altered mental state with expressive aphasia into weeks 3, 4, 5, 6, and 7 of admission. Nephrology, Infectious Disease, GI, Pulmonology, and Surgery continue to follow up with patient. Elevated leukocytosis, unstable glucose levels, and significant electrolyte abnormalities still present. Echocardiogram revealed mild to moderate concentric left ventricular hypertrophy, elevated left arterial pressure, aortic valve sclerosis, moderate pulmonary hypertension, and aortic root displays mild to moderate sclerocalcific changes. Patient was found to have poor venous access and there was PICC placement performed. Family continues to refuse amputation recommendation. Week 6 of admission, patient was transferred to ICU due to PICC vascular access compromise and reduced oxygen saturation. Elevated leukocytosis, unstable glucose levels, and significant electrolyte abnormalities still present. Permacath was removed by surgery team at bedside. Ultrasound guided left thoracentesis was performed due to bilateral pleural effusion. Week 7 of admission, family has agreed to the below the knee amputation procedure. Pain is controlled post surgery. AVF was clotted and declotted on 04/07/17. Dilaysis was continued Discharge Exam - Head Exam Head Exam: ATRAUMATIC, NORMOCEPHALIC - Additional Findings Additional findings: - Head Exam Head Exam: ATRAUMATIC, NORMOCEPHALIC - Additional Findings Additional findings: Appears: Chronically Ill - Head Exam Head Exam: ATRAUMATIC, NORMAL INSPECTION, NORMOCEPHALIC - Eye Exam Eye Exam: EOMI Pupil Exam: NORMAL ACCOMODATION - ENT Exam ENT Exam: Mucous Membranes Moist - Respiratory Exam Respiratory Exam: Clear to Ausculation Bilateral, NORMAL BREATHING PATTERN - Cardiovascular Exam Cardiovascular Exam: REGULAR RHYTHM - GI/Abdominal Exam GI & Abdominal Exam: Soft, Normal Bowel Sounds. absent: Distended, Tenderness - Extremities Exam Additional comments: status post L. BKA. Dressing and brace in place - Skin Skin Exam: Dry, Intact, Normal Color, Warm Discharge Plan - Discharge Medications Prescriptions: Metronidazole [Flagyl] 500 mg PO Q8H 10 Days #30 tablet - Follow Up Plan Condition: STABLE Disposition: NURSING FACILITY MEDICAID CERT Instructions: Heart Failure (DC), Dialysis Diet (DC), Below the Knee Amputation (DC), Diabetic Hypoglycemia (DC), Basic Carbohydrate Counting (DC), Meal Planning with the Plate Method (DC), Meal Planning with Diabetes Exchanges (DC), Altered Mental Status (GEN), End Stage Kidney Disease (DC) Additional Instructions: Patient is stable and clear for D/C to [facility] Please take medications as directed Please follow up with Dr. Myrick. He will come see you while you are in the residential. Please come back to the ED if symptoms worsen. Referrals: Benson Myrick Jr., MD [Medical Doctor] -
[2017-04-09] MEDS: Pantoprazole 40 mg EC Tab PO SCH (11:01)
[2017-04-09 12:47] VITALS: RESP 20
--- NOTE | 2017-04-09 20:02 | CP.PCM.PN ---
Subjective - Date & Time of Evaluation Date of Evaluation: 04/09/17 Time of Evaluation: 14:00 - Subjective Subjective: ESRD ON HD T T S ANEMIA OF CKD .. ON EPO P : C/O CURRENT CARE D/W JENN MARK AND NATALIO Objective - Vital Signs/Intake and Output Vital Signs (last 24 hours): Temp Pulse Resp BP Pulse Ox 98.7 F 110 H 20 142/70 99 04/09/17 15:00 04/09/17 15:00 04/09/17 15:00 04/09/17 15:00 04/09/17 15:00 Intake and Output: 04/09/17 04/10/17 18:59 06:59 Intake Total 360 Balance 360 - Medications Medications: Current Medications Acetaminophen (Tylenol 325mg Tab) 650 mg PO Q6 PRN PRN Reason: Pain, moderate (4-7) Last Admin: 03/28/17 13:21 Dose: 650 mg Acetaminophen (Tylenol 325 Mg Supp) 325 mg NC Q6 PRN PRN Reason: Fever >100.4 F Last Admin: 03/31/17 09:36 Dose: 325 mg Dextrose (Dextrose 50% Inj) 0 ml IV STAT PRN; Protocol PRN Reason: Hyglycemia Protocol Last Admin: 04/08/17 11:59 Dose: 50 ml Dextrose (Glutose 15) 0 gm PO ONCE PRN; Protocol PRN Reason: Hypoglycemia Protocol Last Admin: 04/01/17 21:54 Dose: 15 gm Glucagon (Glucagen Diagnostic Kit) 0 mg IM STAT PRN; Protocol PRN Reason: Hypoglycemia Protocol Hydromorphone HCl (Dilaudid) 0.5 mg IVP Q4H PRN PRN Reason: Pain, severe (8-10) Last Admin: 04/09/17 18:54 Dose: 0.5 mg Insulin Detemir (Levemir) 10 unit SC 0800 [facility] Insulin Detemir (Levemir) 12 unit SC 2200 [facility] Insulin Glargine (Lantus) 25 unit SC HS [facility] Last Admin: 03/16/17 22:27 Dose: Not Given Insulin Human Regular (Novolin R) 5 unit SC AC [facility] Last Admin: 04/09/17 18:01 Dose: 5 unit Lisinopril (Zestril) 20 mg PO DAILY [facility] Last Admin: 04/09/17 11:01 Dose: Not Given Pantoprazole Sodium (Protonix Ec Tab) 40 mg PO DAILY [facility] Last Admin: 04/09/17 11:01 Dose: Not Given Vitamin B Complex/Vit C/Folic Acid (Nephro-Alonzo) 1 tab PO 0800 [facility] Last Admin: 04/09/17 08:26 Dose: 1 tab - Labs Labs: 04/07/17 06:17 04/07/17 06:17 PT 12.0 SECONDS (9.7-12.2) 03/30/17 08:03 INR 1.1 03/30/17 08:03 APTT 26 SECONDS (21-34) 03/30/17 08:03
[2017-04-09] MEDS ORDERED: Insulin Detemir 100 units/ml Vial (Levemir) SC SCH (22:00)
[2017-04-10] MEDS: Dextrose 50% SYRINGE Inj (50 ml) IV PRN ×3 (02:11→11:50)
[2017-04-10] MEDS ORDERED: Dextrose 50% SYRINGE Inj (50 ml) ONE (06:22)
[2017-04-10] MEDS ORDERED: Insulin Detemir 100 units/ml Vial (Levemir) SC SCH (08:00)
[2017-04-10] MEDS: (Novolin R) Insulin Human Regular 100 units/ml vial SC SCH (08:30)
[2017-04-10] MEDS: Multivitamin Vitamin B Complex (Nephro-Vite) Tab PO SCH (08:30)
[2017-04-10] MEDS: Pantoprazole 40 mg EC Tab PO SCH (09:19)
[2017-04-10] MEDS: HYDROmorphone 0.5 mg/0.5 ml ISec IVP PRN ×2 (10:41→16:21)
[2017-04-10 15:55] VITALS: BP 163/82; PULSE 112; TEMP 99.5; O2SAT 95
--- NOTE | 2017-04-10 16:28 | CP.PCM.PN ---
Subjective - Date & Time of Evaluation Date of Evaluation: 04/12/17 Time of Evaluation: 16:28 - Subjective Subjective: patient was seen and examined More awake and alert, ROS unattainable No complaints at this time Objective - Vital Signs/Intake and Output Vital Signs (last 24 hours): Temp Pulse Resp BP Pulse Ox 99.5 F 112 H 20 163/82 H 95 04/10/17 15:53 04/10/17 15:53 04/10/17 15:53 04/10/17 15:53 04/10/17 15:53 Intake and Output: 04/10/17 04/10/17 06:59 18:59 Intake Total 100 Balance 100 - Medications Medications: Current Medications Acetaminophen (Tylenol 325mg Tab) 650 mg PO Q6 PRN PRN Reason: Pain, moderate (4-7) Last Admin: 03/28/17 13:21 Dose: 650 mg Acetaminophen (Tylenol 325 Mg Supp) 325 mg HI Q6 PRN PRN Reason: Fever >100.4 F Last Admin: 03/31/17 09:36 Dose: 325 mg Dextrose (Dextrose 50% Inj) 0 ml IV STAT PRN; Protocol PRN Reason: Hyglycemia Protocol Last Admin: 04/10/17 11:50 Dose: 50 ml Dextrose (Glutose 15) 0 gm PO ONCE PRN; Protocol PRN Reason: Hypoglycemia Protocol Last Admin: 04/01/17 21:54 Dose: 15 gm Glucagon (Glucagen Diagnostic Kit) 0 mg IM STAT PRN; Protocol PRN Reason: Hypoglycemia Protocol Hydromorphone HCl (Dilaudid) 0.5 mg IVP Q4H PRN PRN Reason: Pain, severe (8-10) Last Admin: 04/10/17 16:21 Dose: 0.5 mg Insulin Glargine (Lantus) 25 unit SC HS [facility] Last Admin: 03/16/17 22:27 Dose: Not Given Insulin Human Regular (Novolin R) 0 unit SC ACHS [facility] PRN Reason: Protocol Lisinopril (Zestril) 20 mg PO DAILY [facility] Last Admin: 04/10/17 09:19 Dose: 20 mg Pantoprazole Sodium (Protonix Ec Tab) 40 mg PO DAILY [facility] Last Admin: 04/10/17 09:19 Dose: 40 mg Vitamin B Complex/Vit C/Folic Acid (Nephro-Alonzo) 1 tab PO 0800 [facility] Last Admin: 04/10/17 08:30 Dose: 1 tab - Labs Labs: 04/07/17 06:17 04/07/17 06:17 PT 12.0 SECONDS (9.7-12.2) 03/30/17 08:03 INR 1.1 03/30/17 08:03 APTT 26 SECONDS (21-34) 03/30/17 08:03 - Additional Findings Additional findings: - Head Exam Head Exam: ATRAUMATIC, NORMOCEPHALIC - Additional Findings Additional findings: Appears: Chronically Ill - Head Exam Head Exam: ATRAUMATIC, NORMAL INSPECTION, NORMOCEPHALIC - Eye Exam Eye Exam: EOMI Pupil Exam: NORMAL ACCOMODATION - ENT Exam ENT Exam: Mucous Membranes Moist - Respiratory Exam Respiratory Exam: Clear to Ausculation Bilateral, NORMAL BREATHING PATTERN - Cardiovascular Exam Cardiovascular Exam: REGULAR RHYTHM - GI/Abdominal Exam GI & Abdominal Exam: Soft, Normal Bowel Sounds. absent: Distended, Tenderness - Extremities Exam Additional comments: status post L. BKA. Dressing and brace in place - Skin Skin Exam: Dry, Intact, Normal Color, Warm Assessment and Plan - Assessment and Plan (Free Text) Assessment: Patient was seen and is still stable for discharge. Continue with current discharge planning
[2017-04-10] MEDS ORDERED: (Novolin R) Insulin Human Regular 100 units/ml vial SC SCH (16:30)
--- NOTE | 2017-04-13 11:10 | SPECPROC ---
PROCEDURE: LEFT UPPER EXTREMITY AV FISTULOGRAPHY AND DECLOT CLINICAL HISTORY: 71-year-old female with thrombosed left upper extremity brachial artery to transposed basilic vein AV fistula history for interventional radiology for left upper extremity fistulography and attempted declot. COMPARISON: None. PROCEDURE: 1. Focused ultrasound of the left upper extremity AV fistula. 2. Ultrasound-guided access x2. 3. Left upper extremity AV fistulography. 4. Pharmacomechemical thrombolysis (alteplase 2 mg). 5. Mechanical thrombectomy. 6. Percutaneous transluminal angioplasty of the peripheral outflow vein. 7. Percutaneous transluminal angioplasty of the arteriovenous anastomosis. PRE-PROCEDURE FINDINGS: 1. Thrombosed left upper extremity brachial artery to transposed basilic vein AV fistula. POST-PROCEDURE FINDINGS: 1. Brisk flow through widely patent left upper extremity brachial artery to transposed basilic sheets fistula with strong palpable thrill. INTERVENTIONAL RADIOLOGIST: Terry Aly M.D. The attending was present for the entire procedure. ANESTHESIA: Provided by the attending anesthesiologist. Sedation was supervised by the anesthesiology attending with the presence of independent radiology nursing monitoring. Physiological data monitoring was performed throughout the entire procedure. The patient's blood pressure, EKG and pulse oximetry were recorded. The patient tolerated the procedure and sedation without untoward reactions. The intra-procedural sedation time was 200 minutes. MEDICATION: Lidocaine 1% for local subcutaneous analgesia. Heparin 6000 units IV. Alteplase 2 milligram IV. Nitroglycerin 200 microgram IV. COMPLICATIONS: None. PROCEDURE DESCRIPTION AND FINDINGS: The risks, benefits, alternatives and possible complications of the procedure were fully discussed; all questions were answered and informed consent was obtained. The patient was brought into the interventional suite and a pre-procedure 'time-out' was performed. The patient was placed on the fluoroscopy table in the supine position. The left upper extremity was prepped and draped in the usual sterile fashion. Maximum sterile barrier precautions were maintained throughout the entire procedure. Focused ultrasound of the left upper extremity AV fistula demonstrated thrombosis. Following subcutaneous infiltration of lidocaine 1% for local analgesia, under ultrasound guidance, 21 gauge needle was advanced into the peripheral outflow basilic vein directed centrally. The ultrasound images were permanently recorded and submitted to the PACS. 0.018 guidewire was advanced centrally. The needle was exchanged for 5 [place]an micropuncture sheath. The inner portion of the sheath and guidewire were removed and exchanged for a 0.035 guidewire. The outer portion of the micropuncture sheath was exchanged over the guidewire for a 5 [place]an vascular sheath. Digital subtraction fistulography demonstrated thrombus within the peripheral outflow vein. A 5 [place]an thrombolytic infusion catheter was advanced via the sheath. Pharmacologic thrombolysis was then performed utilizing alteplase 2 milligram. This was allowed to dwell for approximately 10 minutes. Following infusion and removal of the catheter, an angioplasty balloon was used to macerate the residual thrombus. Digital subtraction fistulography demonstrated resolution of thrombus with multifocal areas of moderate outflow vein stenosis now identified. The 5 [place]an sheath was exchanged over the guidewire for a 6 [place]an sheath. Percutaneous transluminal angioplasty of the multifocal outflow vein stenoses was performed utilizing 7 millimeter and 9 millimeter angioplasty balloons. Postangioplasty fistulography demonstrated good flow within the widely patent outflow vein. Focal contained rupture was noted in the proximal peripheral outflow vein. Following subcutaneous infiltration of lidocaine 1% for local analgesia, under ultrasound guidance, a 21 gauge needle was advanced into the peripheral outflow basilic vein directed toward the anastomosis. The ultrasound images were permanently recorded and submitted to the PACS. 0.018 guidewire was advanced towards the anastomosis. The needle was exchanged for a 5 [place]an micropuncture sheath. The inner portion of the sheath and guidewire were removed and exchanged for a 0.035 guidewire. The outer portion of the micropuncture sheath was exchanged over a guidewire for a 6 [place]an vascular sheath. A 5 [place]an rim catheter was advanced via the vascular sheath and used to help direct the guidewire retrograde up the inflow brachial artery. The catheter was exchanged for 5 [place] Berenstein catheter. Digital subtraction angiography was performed which demonstrated widely patent inflow brachial artery with moderate anastomotic stenosis and limited flow into the outflow vein. The catheter was exchanged over guidewire for a 5.5 [place] Niki balloon catheter. The balloon was inflated and was used to pull anastomotic clot into the outflow vein. This was performed multiple times. Repeat angiography demonstrated limited flow into the outflow vein with spasm of the proximal peripheral outflow vein. Nitroglycerin 200 microgram was administered via the sheath to alleviate the spasm. Percutaneous transluminal angioplasty up to 6 millimeter was performed of the arteriovenous anastomosis. Final post intervention digital subtraction angiography performed from the inflow brachial vein demonstrated brisk flow through widely patent brachial artery to transposed basilic vein AV fistula. A strong nonpulsatile thrill was palpated over the outflow vein. All catheters, guide wires and sheaths were removed. Adequate hemostasis was achieved utilizing nonocclusive manual compression. Sterile adhesive dressings were applied over the puncture sites. The patient tolerated the procedure well without immediate post-procedure complications and was back to the floor in stable condition. IMPRESSION: Left upper extremity AV fistula demonstrated thrombosed brachial artery to transposed basilic vein AV fistula. Successful declot of the AV fistula following pharmacomechanical thrombolysis, thrombectomy and percutaneous transluminal angioplasty of the arteriovenous anastomosis and peripheral outflow vein as described above.
== END 2017-04-10 17:44 | DRG 853 ==
LOC: C.ER 04:53 → C.9E 06:22 → C.6T 07:35 → C.5S 02-19 19:07 → C.9I 03-25 12:11 → C.5S 03-29 22:23 → C.6T 04-02 01:36
PROVIDERS: ADMIT Internal Medicine; ATTEND Internal Medicine
PROC: 0W9B3ZX Drainage of Left Pleural Cavity, Percutaneous Approach, Diagnostic (ICD-10-PCS; 2017-02-24)
PROC: 047N3Z1 Dilation of Left Popliteal Artery using Drug-Coated Balloon, Percutaneous Approach (ICD-10-PCS; 2017-02-26)
PROC: 047Q3ZZ Dilation of Left Anterior Tibial Artery, Percutaneous Approach (ICD-10-PCS; 2017-02-26)
PROC: 04CQ3ZZ Extirpation of Matter from Left Anterior Tibial Artery, Percutaneous Approach (ICD-10-PCS; 2017-02-26)
PROC: 0KBW0ZZ Excision of Left Foot Muscle, Open Approach (ICD-10-PCS; principal; 2017-02-27 09:30)
PROC: 5A1D70Z Performance of Urinary Filtration, Intermittent, Less than 6 Hours Per Day (ICD-10-PCS; 2017-02-28)
PROC: 3E0436Z Introduction of Nutritional Substance into Central Vein, Percutaneous Approach (ICD-10-PCS; 2017-03-01)
PROC: 0W9B3ZX Drainage of Left Pleural Cavity, Percutaneous Approach, Diagnostic (ICD-10-PCS; 2017-03-02)
PROC: 0DJ08ZZ Inspection of Upper Intestinal Tract, Via Natural or Artificial Opening Endoscopic (ICD-10-PCS; 2017-03-02)
PROC: 02HV33Z Insertion of Infusion Device into Superior Vena Cava, Percutaneous Approach (ICD-10-PCS; 2017-03-23)
PROC: 5A09557 Assistance with Respiratory Ventilation, Greater than 96 Consecutive Hours, Continuous Positive Airway Pressure (ICD-10-PCS; 2017-03-25)
PROC: 06HY33Z Insertion of Infusion Device into Lower Vein, Percutaneous Approach (ICD-10-PCS; 2017-03-25)
PROC: 02PY33Z Removal of Infusion Device from Great Vessel, Percutaneous Approach (ICD-10-PCS; 2017-03-26)
PROC: 0Y6J0Z1 Detachment at Left Lower Leg, High, Open Approach (ICD-10-PCS; 2017-03-30)
PROC: 03C63ZZ Extirpation of Matter from Left Axillary Artery, Percutaneous Approach (ICD-10-PCS; 2017-04-07)
PROC: 03763ZZ Dilation of Left Axillary Artery, Percutaneous Approach (ICD-10-PCS; 2017-04-07)
DX: A41.59 Other Gram-negative sepsis (principal); G93.41 Metabolic encephalopathy; I13.2 Hypertensive heart and chronic kidney disease with heart failure and with stage 5 chronic kidney disease, or end stage renal disease; I70.268 Atherosclerosis of native arteries of extremities with gangrene, other extremity; J90 Pleural effusion, not elsewhere classified; N18.6 End stage renal disease; A04.72 Enterocolitis due to Clostridium difficile, not specified as recurrent; L97.429 Non-pressure chronic ulcer of left heel and midfoot with unspecified severity; L98.495 Non-pressure chronic ulcer of skin of other sites with muscle involvement without evidence of necrosis; I50.30 Unspecified diastolic (congestive) heart failure; T82.868A Thrombosis due to vascular prosthetic devices, implants and grafts, initial encounter; R47.01 Aphasia; I31.3 Pericardial effusion (noninflammatory); E87.1 Hypo-osmolality and hyponatremia; N39.0 Urinary tract infection, site not specified; R65.20 Severe sepsis without septic shock; E11.22 Type 2 diabetes mellitus with diabetic chronic kidney disease; E11.621 Type 2 diabetes mellitus with foot ulcer; E11.65 Type 2 diabetes mellitus with hyperglycemia; Z99.2 Dependence on renal dialysis; Z79.4 Long term (current) use of insulin; F32.9 Major depressive disorder, single episode, unspecified; D63.1 Anemia in chronic kidney disease; E78.00 Pure hypercholesterolemia, unspecified; I87.8 Other specified disorders of veins; R13.10 Dysphagia, unspecified; R62.7 Adult failure to thrive; R09.02 Hypoxemia; E11.649 Type 2 diabetes mellitus with hypoglycemia without coma; F09 Unspecified mental disorder due to known physiological condition; Y83.2 Surgical operation with anastomosis, bypass or graft as the cause of abnormal reaction of the patient, or of later complication, without mention of misadventure at the time of the procedure; K26.9 Duodenal ulcer, unspecified as acute or chronic, without hemorrhage or perforation; K30 Functional dyspepsia

== ENCOUNTER 2017-04-11 17:28 | Inpatient (IN) | payer MEDICARE ==
[2017-04-11 17:28] VITALS: BMI 32.9
[2017-04-11] MEDS ORDERED: (Novolin R) Insulin Human Regular 100 units/ml vial IV STA (18:54)
[2017-04-11] MEDS ORDERED: (Novolin R) Insulin Human Regular 100 units/ml vial ONE (18:58)
[2017-04-11] MEDS ORDERED: Morphine 4 MG/ML VIAL ONE (18:58)
[2017-04-11 19:00] LABS: BASO % 0.2 % (0.0-2.0); EOS % 0.2 % (0.0-4.0); HEMATOCRIT 27.9 % (34.0-47.0); LYMPH % 4.6 % (20.0-40.0); MEAN CELL VOLUME 95.3 fL (81.0-99.0); MEAN CORPUSCULAR HEMOGLOBIN 29.3 pg (27.0-31.0); MEAN CORPUSCULAR HGB CONC 30.8 g/dL (33.0-37.0); MEAN PLATELET VOLUME 8.4 fL (7.2-11.7); MONO % 4.6 % (0.0-10.0); PLATELET COUNT 238 K/uL (130-400); RED CELL DISTRIBUTION WIDTH 18.6 % (11.5-14.5); WHITE BLOOD COUNT 21.3 K/uL (4.8-10.8)
[2017-04-11 19:12] LABS: BILIRUBIN,TOTAL 0.8 mg/dL (0.2-1.3); CALCIUM 7.1 mg/dl (8.6-10.4); POTASSIUM 3.4 mmol/L (3.6-5.2); TOTAL PROTEIN 4.4 g/dL (6.3-8.3)
[2017-04-11 19:16] LABS: ALB/GLOB RATIO 0.9 (1.0-2.1)
[2017-04-11 19:23] LABS: TROPONIN I 0.115 ng/mL (0.00-0.120)
--- NOTE | 2017-04-11 19:54 | C.PDOC ---
History Of Present Illness 71 year old female is referred to the ED by her intermediate for a change in mental status. Patient was recently admitted for a left leg BKA amputation and was discharged yesterday to the intermediate. On arrival she is c/o pain to the left leg. Patient has a 4 cm stage III single DQ. Time Seen by Provider: 04/11/17 18:10 Chief Complaint (Nursing): Syncope History Per: Patient, Other (halfway) History/Exam Limitations: no limitations Onset/Duration Of Symptoms: Hrs Current Symptoms Are (Timing): Still Present Associated Symptoms Preceding Syncopal Episode: No Predromal Symptoms (Sudden Onset) Seizure Or Post-ictal Symptoms: None Fall Associated With With Symptoms: No Severity: None Recent travel outside of the [place]: No Additional History Per: Patient, Shelter Past Medical History Reviewed: Historical Data, Nursing Documentation, Vital Signs Vital Signs: Last Vital Signs Temp 97.3 F L 04/11/17 17:40 Pulse 88 04/11/17 20:30 Resp 14 04/11/17 20:30 BP 167/67 H 04/11/17 20:30 Pulse Ox 100 04/11/17 21:14 - Medical History PMH: Anemia, Anxiety, CHF, Depression, Diabetes, HTN, Hypercholesterolemia, End Stage Renal Disease, Chronic Kidney Disease Denies: HIV Surgical History: Appendectomy, Endoscopy (OCTOBER 2013) - [facility] Procedures ANESTH INJECT-SPIN CANAL (01/08/15) ANGIOPLASTY OF OTHER NON-CORONARY VESSEL(S) (03/01/14) ATHERECTOMY OF OTHER NON-CORONARY VESSEL(S) (03/01/14) BYPASS L BASILIC VEIN TO UP VEIN W SYNTH SUB, OPEN (10/21/16) DILATION OF LEFT POPLITEAL ARTERY, PERCUTANEOUS APPROACH (10/21/16) DRAINAGE OF LEFT LOWER ARM SKIN, EXTERNAL APPROACH (11/28/16) DRAINAGE OF LEFT PLEURAL CAVITY, PERCUTANEOUS APPROACH (10/10/15) EXCISION OF LEFT LOWER ARM SKIN, EXTERNAL APPROACH (11/28/16) EXERCISE TREATMENT OF MUSCULOSK WHOLE USING ASSIST EQUIPMENT (10/17/15) GAIT TRAINING/AMBULAT TREATMENT USING ASSIST EQUIPMENT (10/17/15) HOME MANAGEMENT TREATMENT USING ASSIST EQUIPMENT (10/17/15) IMMOBILIZ/WOUND ATTN NEC (06/24/13) INJECT STEROID (01/08/15) INJECT/INFUSE NEC (01/08/14) INSEJ OF DRUG-ELUTING STENT(S) OF OTH PERIPHERAL VESSEL(S) (03/01/14) INSERT INFUSION DEV IN R INT JUGULAR VEIN, PERC (10/21/16) INSERTION OF INFUSION DEV INTO SUP VENA CAVA, PERC APPROACH (11/28/16) INSERTION OF TWO VASCULAR STENTS (03/01/14) INTRODUCE OF OTH ANTI-INFECT INTO PERIPH VEIN, PERC APPROACH (10/17/15) MEASURE OF CARDIAC SAMPL & PRESSURE, L HEART, PERC APPROACH (12/20/16) PERFORMANCE OF URINARY FILTRATION, MULTIPLE (12/20/16) PERFORMANCE OF URINARY FILTRATION, SINGLE (02/10/17) PLAIN RADIOGRAPHY OF LEFT HEART USING LOW OSMOLAR CONTRAST (12/20/16) PLAIN RADIOGRAPHY OF MULT COR ART USING L OSM CONTRAST (12/20/16) PROCEDURE ON SINGLE VESSEL (03/01/14) SPINAL CANAL INJECT NEC (01/08/15) TRANSFUSE NONAUT RED BLOOD CELLS IN PERIPH VEIN, PERC (11/28/16) VACCINATION NEC (11/29/14) Family History: States: Unknown Family Hx - Social History Hx Alcohol Use: Yes Hx Substance Use: No - Immunization History Hx Tetanus Toxoid Vaccination: No Hx Influenza Vaccination: No Hx Pneumococcal Vaccination: No Review Of Systems Constitutional: Negative for: Fever, Chills Cardiovascular: Negative for: Chest Pain, Palpitations Respiratory: Negative for: Cough, Shortness of Breath Gastrointestinal: Negative for: Nausea, Vomiting, Abdominal Pain Neurological: Positive for: Altered Mental Status. Negative for: Weakness, Numbness, Confusion, Headache Psych: Negative for: Depression Physical Exam - Physical Exam Appears: Non-toxic, No Acute Distress, Other (Older) Skin: Pale Head: Atraumatic, Normacephalic Oral Mucosa: Moist Neck: Normal ROM, Supple Chest: Symmetrical Cardiovascular: Rhythm Regular, No Murmur Respiratory: Normal Breath Sounds, No Accessory Muscle Use, No Rales, No Rhonchi , No Wheezing Gastrointestinal/Abdominal: Soft, No Tenderness Extremity: Normal ROM, No Pedal Edema, No Calf Tenderness, No Swelling Neurological/Psych: Oriented x3, Normal Speech, Normal Cognition Gait: Steady ED Course And Treatment - Laboratory Results Result Diagrams: 04/11/17 18:55 04/11/17 18:55 Lab Interpretation: Abnormal (ua neg, trop neg, bnp 74,000, lactate 3.2H.) ECG: Interpreted By Me, Viewed By Me ECG Rhythm: Sinus Tachycardia ECG Interpretation: No Acute Changes Rate From EC O2 Sat by Pulse Oximetry: 100 (On RA) Pulse Ox Interpretation: Normal - Radiology CXR: Interpreted by Me, Viewed By Me CXR Interpretation: Yes: Other (Midsternal pleural effusion, left pleural effusion tapped prior admission, left AV fistule placed for dialysis but dialysis was discontinued ) Progress Note: morphine runs, IVF, Vanco/Gent, Code Sepsis called. Critical Care Time - Critical Care Note Total Time (in mins): 90 Documented critical care: time excludes all time spent performing seperately billable procedures. Medical Decision Making Medical Decision Making: Impression : 71 y/o female referred to the ED due to change in mental status. Plan: * EKG, CXR, UA ordered * Blood culture collected * Morphine 4 mg IVP, Insulin 8 units once IV, and Vancomycin 1 gm in 200 ml IVPB given Mental status changes Patient had many Brain CT's and MRI's done. Patient has a 4 cm stage III single DQ. 20:00 - case was discussed with Dr. Myrick and the biomedical equipment tech for evaluation , also spoke with Dr. Broussard, surgeon, who will follow up. Had an extensive discussion with the family about the patient advanced medical illness, requested to be FC, family also had prior discussions in prior admissions about FC. broad spectrum abx for probable hospital acquired infection, considering recent admission and BIBA from [place], therefore Vanco/Gent Disposition Doctor Will See Patient In The: Hospital Counseled Patient/Family Regarding: Studies Performed, Diagnosis - Disposition Disposition: HOSPITALIZED Disposition Time: 21:37 Condition: FAIR - Clinical Impression Clinical Impression: Sepsis, Sacral decubitus ulcer, stage III, Lower limb amputation, below knee, Elevated WBC count - Scribe Statement The provider has reviewed the documentation as recorded by the Scribe Rikki Hernandez All medical record entries made by the Scribe were at my direction and personally dictated by me. I have reviewed the chart and agree that the record accurately reflects my personal performance of the history, physical exam, medical decision making, and the department course for this patient. I have also personally directed, reviewed, and agree with the discharge instructions and disposition.
[2017-04-11] MEDS ORDERED: Morphine 4 MG/ML VIAL IV ONE (20:00)
[2017-04-11] MEDS ORDERED: Vancomycin 1 gm/NS 200 ml 1 GM/200 ML BAG IVPB SCH (20:00)
[2017-04-11] MEDS ORDERED: Sodium Chloride 0.9% 1,000 ML IV STA (20:25)
[2017-04-11 20:29] LABS: NEUTROPHIL 93 % (50-75); TOTAL CELLS COUNTED 100
[2017-04-11 21:02] LABS: RBC URINE 5 /hpf (0-3); URINE BACTERIA RARE (<OCC); URINE BILIRUBIN NEGATIVE (NEGATIVE); URINE BLOOD NEGATIVE (NEGATIVE); URINE COLOR Amber (YELLOW); URINE GLUCOSE (UA) 3+ mg/dL (Normal); URINE KETONE NEGATIVE (NEGATIVE); URINE LEUKOCYTE ESTERASE NEG Leu/uL (Negative); URINE PROTEIN 2+ mg/dL (NEGATIVE); URINE UROBILINOGEN NORMAL mg/dL (0.2-1.0); WBC URINE 13 /hpf (0-5)
--- NOTE | 2017-04-11 22:17 | CP.PCM.HP ---
History of Present Illness - History of Present Illness History of Present Illness: PGY-1 H&P for Dr. Myrick CC: Altered Mental Status This is a 71 year old female with PMHx ESRD (dialysis TTS), CHF, HTN, DM2, PVD, AMS, depression, anemia of chronic disease, chronic low back pain, glaucoma, and 12 days s/p Left BKA who presents this evening with altered mental status. Patient is non-verbal and history was taken from the nurse. was at beside. Per ED staff, patient was sent to [facility] (formerly [facility]] from residential where she was receiving dialysis. ED staff was told that patient was hypotensive but she was found to be hypertensive on arrival. Per ED staff, patient was complaining of left leg pain and received Morphine 4 IV x3 for pain control. Patient was also found to be hyperglycemic in the 300's and received 8 units of Insulin Regular which minimally decreased her sugars. Patient was just discharged from the hospital yesterday (04/10/17). Please refer to discharge summary on 04/08/17 for hospital course. ROS unattainable due to patient's AMS. Per , patient has been non-verbal for almost two months but she can understand what people are saying. Code Sepsis was called in ED due to elevated WBC's and Tachycardia. Lactate was also found to be 3.2 PMHx: Per , ESRD (dialysis TTS), CHF, HTN, DM2, PVD, depression, anemia of chronic disease, chronic low back pain, glaucoma PSHx: Per , Appendectomy, AV fistula, lower extremity artherectomy Allergies: NKDA Family history: not contributory Social History: Lives with in [place]. Per , denies any smoking, denies ETOH or drug abuse. Currently Hos: 02/18/17-04/10/17 for AMS Meds: Reviewed PMD: Dr Myrick Present on Admission - Present on Admission Any Indicators Present on Admission: Yes History of Uncontrolled Diabetes: Yes Decubitus Ulcer Present: Yes Decubitus Ulcer Location: Sacrum Decubitus Ulcer Stage: III Review of Systems - Review of Systems Review of Systems: Review of Systems Unattainable Past Patient History - Infectious Disease Hx of Infectious Diseases: None - Tetanus Immunizations Tetanus Immunization: Unknown - Past Medical History & Family History Past Medical History?: Yes - Past Social History Smoking Status: Never Smoked - CARDIAC Hx Congestive Heart Failure: Yes Hx Hypercholesterolemia: Yes Hx Hypertension: Yes - PULMONARY Hx Respiratory Disorders: No - NEUROLOGICAL Hx Neurological Disorder: No - HEENT Hx HEENT Problems: Yes Hx Cataracts: Yes - RENAL Hx Chronic Kidney Disease: Yes - ENDOCRINE/METABOLIC Hx Diabetes Mellitus Type 2: Yes - HEMATOLOGICAL/ONCOLOGICAL Hx Anemia: Yes Hx Human Immunodeficiency Virus (HIV): No - INTEGUMENTARY Hx Dermatological Problems: No - MUSCULOSKELETAL/RHEUMATOLOGICAL Hx Musculoskeletal Disorders: Yes Hx Degenerative Joint Disease: Yes - GENITOURINARY/GYNECOLOGICAL Hx Genitourinary Disorders: Yes Hx Urinary Tract Infection: Yes - PSYCHIATRIC Hx Anxiety: Yes Hx Depression: Yes Hx Substance Use: No - SURGICAL HISTORY Hx Appendectomy: Yes - ANESTHESIA Hx Anesthesia: Yes Hx Anesthesia Reactions: No Hx Malignant Hyperthermia: No Meds Allergies/Adverse Reactions: Allergies Allergy/AdvReac Type Severity Reaction Status Date / Time No Known Allergies Allergy Verified 04/11/17 17:38 Physical Exam - Constitutional Appears: Toxic, No Acute Distress, Confused, Chronically Ill - Head Exam Head Exam: ATRAUMATIC, NORMAL INSPECTION, NORMOCEPHALIC - Eye Exam Eye Exam: EOMI, Normal appearance, PERRL - ENT Exam ENT Exam: Mucous Membranes Moist - Neck Exam Neck exam: Negative for: Lymphadenopathy, Tenderness, Thyromegaly - Respiratory Exam Respiratory Exam: Clear to Auscultation Bilateral, NORMAL BREATHING PATTERN. absent: Accessory Muscle Use, Rales, Rhonchi, Wheezes, Respiratory Distress, Stridor - Cardiovascular Exam Cardiovascular Exam: RRR, +S1, +S2 Additional comments: No Murmurs appreciated on Exam - GI/Abdominal Exam GI & Abdominal Exam: Hypoactive Bowel Sounds, Soft. absent: Bruit, Distended, Guarding, Organomegaly, Tenderness - Extremities Exam Additional comments: Left BKA surgical wound with jay. Site is erythematous, warm, with small purulent drainage. - Neurological Exam Neurological exam: Altered - Psychiatric Exam Psychiatric exam: Flat Affect - Skin Additional comments: Stage 3 Sacral decubitus ulcer about 2 inches in length and 1.5 inches in width. Borders are irregular. Results - Vital Signs Recent Vital Signs: Last Vital Signs Temp 97.3 F L 04/11/17 17:40 Pulse 88 04/11/17 20:30 Resp 14 04/11/17 20:30 BP 167/67 H 04/11/17 20:30 Pulse Ox 100 04/11/17 21:38 - Labs Result Diagrams: 04/11/17 18:55 04/11/17 18:55 Labs: Laboratory Results - last 24 hr 04/11/17 04/11/17 04/11/17 17:43 18:55 18:55 WBC 21.3 H RBC 2.93 L Hgb 8.6 L Hct 27.9 L MCV 95.3 MCH 29.3 MCHC 30.8 L RDW 18.6 H Plt Count 238 MPV 8.4 Neut % (Auto) 90.4 H Lymph % (Auto) 4.6 L [place] % (Auto) 4.6 Eos % (Auto) 0.2 Baso % (Auto) 0.2 Neut # 19.2 H Lymph # 1.0 [place] # 1.0 H Eos # 0.0 Baso # 0.0 Neutrophils % (Manual) 93 H Lymphocytes % (Manual) 4 L Monocytes % (Manual) 3 Platelet Estimate Normal PT 11.7 INR 1.0 APTT 26 Sodium Potassium Chloride Carbon Dioxide Anion Gap BUN Creatinine Est GFR ( Amer) Est GFR (Non-Af Amer) POC Glucose (mg/dL) 336 H Random Glucose Lactic Acid Calcium Total Bilirubin AST ALT Alkaline Phosphatase Troponin I NT-Pro-B Natriuret Pep Total Protein Albumin Globulin Albumin/Globulin Ratio Urine Color Urine Clarity Urine pH Ur Specific [place] Urine Protein Urine Glucose (UA) Urine Ketones Urine Blood Urine Nitrate Urine Bilirubin Urine Urobilinogen Ur Leukocyte Esterase Urine WBC (Auto) Urine RBC (Auto) Ur Squamous Epith Cells Urine Bacteria 04/11/17 04/11/17 04/11/17 18:55 20:43 20:51 WBC RBC Hgb Hct MCV MCH MCHC RDW Plt Count MPV Neut % (Auto) Lymph % (Auto) [place] % (Auto) Eos % (Auto) Baso % (Auto) Neut # Lymph # [place] # Eos # Baso # Neutrophils % (Manual) Lymphocytes % (Manual) Monocytes % (Manual) Platelet Estimate PT INR APTT Sodium 124 L Potassium 3.4 L Chloride 92 L Carbon Dioxide 25 Anion Gap 11 BUN 19 H Creatinine 1.1 Est GFR ( Amer) 59 Est GFR (Non-Af Amer) 49 POC Glucose (mg/dL) Random Glucose 318 H Lactic Acid 3.2 H Calcium 7.1 L Total Bilirubin 0.8 AST 23 ALT 35 Alkaline Phosphatase 346 H D Troponin I 0.1150 NT-Pro-B Natriuret Pep 82953 H Total Protein 4.4 L Albumin 2.1 L Globulin 2.3 Albumin/Globulin Ratio 0.9 L Urine Color [place] Urine Clarity Hazy Urine pH 5.0 Ur Specific [place] 1.022 Urine Protein 2+ H Urine Glucose (UA) 3+ H Urine Ketones Negative Urine Blood Negative Urine Nitrate Negative Urine Bilirubin Negative Urine Urobilinogen Normal Ur Leukocyte Esterase Neg Urine WBC (Auto) 13 H Urine RBC (Auto) 5 H Ur Squamous Epith Cells < 1 Urine Bacteria Rare 04/11/17 20:54 WBC RBC Hgb Hct MCV MCH MCHC RDW Plt Count MPV Neut % (Auto) Lymph % (Auto) [place] % (Auto) Eos % (Auto) Baso % (Auto) Neut # Lymph # [place] # Eos # Baso # Neutrophils % (Manual) Lymphocytes % (Manual) Monocytes % (Manual) Platelet Estimate PT INR APTT Sodium Potassium Chloride Carbon Dioxide Anion Gap BUN Creatinine Est GFR ( Amer) Est GFR (Non-Af Amer) POC Glucose (mg/dL) 309 H Random Glucose Lactic Acid Calcium Total Bilirubin AST ALT Alkaline Phosphatase Troponin I NT-Pro-B Natriuret Pep Total Protein Albumin Globulin Albumin/Globulin Ratio Urine Color Urine Clarity Urine pH Ur Specific [place] Urine Protein Urine Glucose (UA) Urine Ketones Urine Blood Urine Nitrate Urine Bilirubin Urine Urobilinogen Ur Leukocyte Esterase Urine WBC (Auto) Urine RBC (Auto) Ur Squamous Epith Cells Urine Bacteria Assessment & Plan - Assessment and Plan (Free Text) Assessment: 71 year old female with PMHx ESRD (dialysis TTS), CHF, HTN, DM2, PVD, AMS, depression, anemia of chronic disease, chronic low back pain, glaucoma, and days s/p Left BKA admitted for evaluation of altered mental status likely 2/2 to sepsis. Plan: Sepsis Source is likely surgical Site wound vs Sacral Ulcer. WBC 21.3 with Tachycardia. CXR - Pending Official Read. Read by me shows left sided pleural effeusion and increased opacity in right lower lung base EKG - Pending Official Read. Preliminary Read shows Sinus tachy w/ no acute changes UA - Positive for WBC's, Negative for Nitrates or Leuk Es Blood Cultures, Urine Cultures, Wound Cultures ID Consulted - Dr. Mangia. Gentamicin 80mg and Vancomycin 1gm given in ED NS 100mls/hr Started in ED. Intermittent Altered Mental Status -likely secondary to poor glycemic control - Neurology on board (Dr. Aguirre) -(03/01/17) Head CT head negative for acute infarction Cardiac Comorbidties -CHF, HTN. PVD - Echo showed 61% LVEF 03/09/17 - Lisonopril 20mg PO QD - Crestor 10 mg PO HS S/P L. BKA - Pain at surgical Site - Dilaudid 0.5 Q4 - Received Morphine 4 x3 in ED - Day 12 S/P L. BKA - Wound Care - Wound Cultures Dyspnea (Stable) - Patient has had prior episodes of respiratory distress in the past secondary to effusion. - S/P thoracentesis on 03/27: 900 cc of clear fluid removed from left lung - 03/27 CXR : Decreased left pleural effusion. No pneumothorax. Stable small right pleural effusion. - O2 Sat of 100% on [place] ESRD on hemodialysis - Pt undergoes hemodialysis //Thu, will dialyze daily to resolve altered mentation - Multiple electrolyte abnormalities throughout this admission, monitor CMPs, magnesium and phosphorous daily - PICC line inserted by IR 03/23/17 now functional - Ergocalcierol 1 capsule PO Q7D - Procrit - Vancomycin 1gram IVPB 3 times weeks post dialysis Type 2 Diabetes -poorly controlled - Accuchecks ACHS - Regular Insulin high dose protocol for coverahe - Lantus 25u SC HS - A1c of 8.9 02/18/17 Failure to thrive - Hx of dysphagia - Swallow Eval - As of 03/19/17 , GI did not recommend PEG placement due to patient's significant medical comorbidities - NPO for tonight. - C diff neg (02/28) Anemia of chronic disease - Hgb stable. Cont to monitor - Procrit 10,000U IV on dialysis days - Ferrlecit 125mg IVPB TTS Peripheral vascular Disease -Low ext arterial duplex (02/04/17) -occlusion R post tib artery, 50-75% stenosis right mid popliteal & proximal anterior tib arteries -occlusion of left post tib artery, >75% stenosis left proximal ant tibial artery, 50-75% stenosis left distal SFA & proximal popliteal a. Prophylactic Measure - Protonix 40mg PO daily - Heparin 5000 U SC Q12 - Nephro-kevin vitamins Discussed with Dr. Myrick on the phone. Was asked to consult ID (Dr. Wellington) and restart the home medications. Held losartan 100 because patient already had Cuong inhibitor on. Notified Dr. Wellington about patient, he stated he will follow up tomorrow. Glenn Ceron PGY-1 - Date & Time Date: 04/11/17 Time: 20:00
[2017-04-11] MEDS ORDERED: HYDROmorphone 0.5 mg/0.5 ml ISec IVP PRN (22:25)
[2017-04-11] MEDS ORDERED: Vancomycin 1 gm/NS 200 ml 1 GM/200 ML BAG IVPB STA (22:30)
[2017-04-12] MEDS: Ergocalciferol 50,000 Intl Units Cap PO SCH (00:14)
[2017-04-12] MEDS: Thiamine 100 mg/ml Inj IV SCH ×4 (00:41→21:29)
[2017-04-12] MEDS ORDERED: (Novolin R) Insulin Human Regular 100 units/ml vial SC ONE (02:23)
[2017-04-12] MEDS: Multivitamin Vitamin B Complex (Nephro-Vite) Tab PO SCH (08:01)
[2017-04-12] MEDS: (Novolin R) Insulin Human Regular 100 units/ml vial SC SCH ×4 (08:01→21:33)
--- NOTE | 2017-04-12 08:04 | RAD ---
PROCEDURE: CHEST RADIOGRAPH, 1 VIEW HISTORY: Shortness of breath COMPARISON: 03/27/2017 FINDINGS: LUNGS: Moderate left and small right pleural effusion. Patchy opacifications seen within the left mid to lower lung zone as well as at the right lung base. Biapical pleural thickening with upper lobe granulomatous changes. Lines and tubes stable position. PLEURA: As above. CARDIOVASCULAR: Cardiomegaly. Calcification at the aortic knob. OSSEOUS STRUCTURES: Degenerative changes in the spine and shoulders. VISUALIZED UPPER ABDOMEN: Normal. OTHER FINDINGS: None. IMPRESSION: Moderate left and small right pleural effusion. Patchy opacifications seen within the left mid to lower lung zone as well as at the right lung base. Biapical pleural thickening with upper lobe granulomatous changes. Lines and tubes stable position.
[2017-04-12] MEDS: Pantoprazole 40 mg EC Tab PO SCH (11:00)
[2017-04-12] MEDS: Dextrose 5%/0.45% NS 1,000 ML IV SCH ×2 (11:23→13:19)
[2017-04-12] MEDS: Brimonidine 0.2% Opth Sol (5ml) OU SCH ×3 (11:27→17:50)
--- NOTE | 2017-04-12 13:54 | CP.PCM.CON ---
History of Present Illness - History of Present Illness History of Present Illness: 71 year old female referred for ID eval for possible sepsis and antibiotic management Recently had Left BKA for chronic ulcer Left Foot with OM and severe PVD Patient has a PMHx of ESRD (dialysis TTS), CHF, HTN, DM2, PVD, AMS, depression, anemia of chronic disease, chronic low back pain, glaucoma, and 12 days s/p Left BKA who presents with altered mental status. Patient is non-verbal was receiving HD at the [facility] when patient became hypotensive patient has been non-verbal for almost two months but she can understand what people are saying. PMHx: Per , ESRD (dialysis TTS), CHF, HTN, DM2, PVD, depression, anemia of chronic disease, chronic low back pain, glaucoma PSHx: Per , Appendectomy, AV fistula, lower extremity artherectomy Allergies: NKDA Family history: not contributory Social History: Lives with in [place]. Per , denies any smoking, denies ETOH or drug abuse. Currently Hos: 02/18/17-04/10/17 for AMS Meds: Reviewed Review of Systems - Review of Systems Systems not reviewed;Unavailable: Altered Mental Status - Constitutional Constitutional: As Per HPI - EENT Eyes: absent: As Per HPI, Blind Spots, Blurred Vision, Change in Vision, Decreased Night Vision, Diplopia, Discharge, Dry Eye, Exophthalmos, Floaters, Irritation, Itchy Eyes, Loss of Peripheral Vision, Pain, Photophobia, Requires Corrective Lenses, Sees Flashes, Spots in Vision, Tunnel Vision, Other Visual Disturbances, Loss of Vision, Other Ears: absent: As Per HPI, Decreased Hearing, Ear Discharge, Ear Pain, Tinnitus, Abnormal Hearing, Disequilibrium, Dizziness, Other Nose/Mouth/Throat: absent: As Per HPI, Epistaxis, Nasal Congestion, Nasal Discharge, Nasal Obstruction, Nasal Trauma, Nose Pain, Post Nasal Drip, Sinus Pain, Sinus Pressure, Bleeding Gums, Change in Voice, Dental Pain, Dry Mouth, Dysphagia, Halitosis, Hoarsness, Lip Swelling, Mouth Lesions, Mouth Pain, Odynophagia, Sore Throat, Throat Swelling, Tongue Swelling, Facial Pain, Neck Pain, Neck Mass, Other - Breasts Breasts: absent: As Per HPI, Change in Shape, Mass, Pain, Nipple Discharge, Nipple Inversion, Skin Changes, Swelling, Other - Cardiovascular Cardiovascular: As Per HPI - Respiratory Respiratory: absent: As Per HPI, Cough, Dyspnea, Hemoptysis, Dyspnea on Exertion , Wheezing, Snoring, Stridor, Pain on Inspiration, Chest Congestion, Excessive Mucous Production, Change in Mucous Color, Pain with Coughing, Other - Gastrointestinal Gastrointestinal: absent: As Per HPI, Abdominal Pain, Belching, Bloating, Change in Bowel Habits, Change in Stool Character, Coffee Ground Emesis, Constipation, Cramping, Diarrhea, Dyspepsia, Dysphagia, Early Satiety, Excessive Flatus, Fecal Incontinence, Heartburn, Hematemesis, Hematochezia, Loose Stools, Melena, Nausea, Odynophagia, Temesmus, Vomiting, Other - Genitourinary Genitourinary: absent: As Per HPI, Change in Urinary Stream, Difficulty Urinating, Dysuria, Flank Pain, Hematuria, Pyuria, Nocturia, Urinary Incontinence, Urinary Frequency, Urinary Hesitance, Urinary Urgency, Voiding Freq/Small Amts, Freq UTI, Hx Renal/Bladder Calculi, Hx /Renal Surgery, Bladder Distension, Other - Reproductive: Female Reproductive:Female: absent: As Per HPI, Amenorrhea, Amenorrhea/ Control, Currently Menstual, Cycle <21 Days, Cycle >35 Days, Cycle Variable, Menses 1-7 Days, Menses >/= 8 Days, Menses Variable, Cycle > 4 Weeks Between, No Menses for 6 Months, Heavy Menses, Light Menses, Normal Menses, Spotting Between Cycles , S/P Hysterectomy, Menopausal, Post Menopausal, Premenarche, Abnormal Vaginal Bleeding, Dysmenorrhea, Dyspareunia, Genital Lesions, Genital Pruritis, Pelvic Pain, Prolapse Symptoms, Sexual Dysfunction, Vaginal Discharge, Vaginal Dryness , Vaginal Odor, Vaginal Pruritis, Other - Menstruation Menstruation: absent: As Per HPI, Amenorrhea, Amenorrhea/ Control, Currently Menstual, Cycle <21 Days, Cycle >35 Days, Cycle Variable, Menses 1-7 Days, Menses >/= 8 Days, Menses Variable, Cycle > 4 Weeks Between, No Menses for 6 Months, Heavy Menses, Light Menses, Normal Menses, Spotting Between Cycles , S/P Hysterectomy, Menopausal, Post Menopausal, Premenarche, Abnormal Vaginal Bleeding, Dysmenorrhea, Other - Musculoskeletal Musculoskeletal: As Per HPI - Integumentary Integumentary: As Per HPI, Skin Pain, Wounds - Neurological Neurological: As Per HPI - Psychiatric Psychiatric: As Per HPI - Endocrine Endocrine: As Per HPI - Hematologic/Lymphatic Hematologic: absent: As Per HPI, Easy Bleeding, Easy Bruising, Lymphadenopathy, Other Past Patient History - Infectious Disease Hx of Infectious Diseases: None - Tetanus Immunizations Tetanus Immunization: Unknown - Past Medical History & Family History Past Medical History?: Yes - Past Social History Smoking Status: Never Smoked - CARDIAC Hx Congestive Heart Failure: Yes Hx Hypercholesterolemia: Yes Hx Hypertension: Yes - PULMONARY Hx Respiratory Disorders: No - NEUROLOGICAL Hx Neurological Disorder: No - HEENT Hx HEENT Problems: Yes Hx Cataracts: Yes - RENAL Hx Chronic Kidney Disease: Yes - ENDOCRINE/METABOLIC Hx Diabetes Mellitus Type 2: Yes - HEMATOLOGICAL/ONCOLOGICAL Hx Anemia: Yes Hx Human Immunodeficiency Virus (HIV): No - INTEGUMENTARY Hx Dermatological Problems: No - MUSCULOSKELETAL/RHEUMATOLOGICAL Hx Musculoskeletal Disorders: Yes Hx Degenerative Joint Disease: Yes - GENITOURINARY/GYNECOLOGICAL Hx Genitourinary Disorders: Yes Hx Urinary Tract Infection: Yes - PSYCHIATRIC Hx Anxiety: Yes Hx Depression: Yes Hx Substance Use: No - SURGICAL HISTORY Hx Appendectomy: Yes - ANESTHESIA Hx Anesthesia: Yes Hx Anesthesia Reactions: No Hx Malignant Hyperthermia: No Meds Allergies/Adverse Reactions: Allergies Allergy/AdvReac Type Severity Reaction Status Date / Time No Known Allergies Allergy Verified 04/11/17 17:38 - Medications Medications: Current Medications Acetaminophen (Tylenol 325mg Tab) 650 mg PO Q6 PRN PRN Reason: Pain, moderate (4-7) Amlodipine Besylate (Norvasc) 5 mg PO DAILY [facility] Last Admin: 04/12/17 11:00 Dose: Not Given Brimonidine Tartrate (Alphagan 0.2% Opht) 1 ml OU TID [facility] Last Admin: 04/12/17 13:06 Dose: 1 drop Epoetin Maxwell (Procrit) 10,000 unit IV TTS [facility] Ergocalciferol (Drisdol 50,000 Intl Units Cap) 1 cap PO Q7D [facility] Last Admin: 04/12/17 00:14 Dose: Not Given Furosemide (Lasix) 40 mg PO DAILY [facility] Last Admin: 04/12/17 11:00 Dose: Not Given Heparin Sodium (Porcine) (Heparin) 5,000 units SC Q12H [facility] Last Admin: 04/12/17 11:01 Dose: 5,000 units Hydralazine HCl (Apresoline) 25 mg PO BID [facility] Last Admin: 04/12/17 11:00 Dose: Not Given Hydromorphone HCl (Dilaudid) 0.5 mg IVP Q4H PRN PRN Reason: Pain, severe (8-10) Dextrose/Sodium Chloride (Dextrose 5%/0.45% Ns 1000 Ml) 1,000 mls @ 60 mls/hr IV .[id number] [facility] Last Admin: 04/12/17 13:19 Dose: 60 mls/hr Insulin Human Regular (Novolin R) 0 unit SC ACHS [facility] PRN Reason: Protocol Last Admin: 04/12/17 12:29 Dose: Not Given Latanoprost (Xalatan Opht) 0.02 ml OU HS [facility] Lisinopril (Zestril) 20 mg PO DAILY [facility] Last Admin: 04/12/17 11:00 Dose: Not Given Pantoprazole Sodium (Protonix Ec Tab) 40 mg PO DAILY [facility] Last Admin: 04/12/17 11:00 Dose: Not Given Rosuvastatin Calcium (Crestor) 10 mg PO HS [facility] Thiamine HCl (Vitamin B1 Inj) 100 mg IV Q8H [facility] Last Admin: 04/12/17 13:32 Dose: 100 mg Timolol Maleate (Timoptic 0.5% Ophth Soln) 1 drop OU BID [facility] Last Admin: 04/12/17 11:21 Dose: 1 drop Vitamin B Complex/Vit C/Folic Acid (Nephro-Alonzo) 1 tab PO 0800 [facility] Last Admin: 04/12/17 08:01 Dose: Not Given Physical Exam - Constitutional Appears: Non-toxic, Confused, Cachectic, Chronically Ill - Head Exam Head Exam: ATRAUMATIC, NORMAL INSPECTION, NORMOCEPHALIC - Eye Exam Eye Exam: PERRL. absent: Scleral icterus - ENT Exam ENT Exam: Mucous Membranes Dry, Normal Oropharynx - Neck Exam Neck exam: Negative for: Lymphadenopathy - Respiratory Exam Respiratory Exam: Decreased Breath Sounds, Rhonchi - Cardiovascular Exam Cardiovascular Exam: Tachycardia, REGULAR RHYTHM, +S1, +S2 - GI/Abdominal Exam GI & Abdominal Exam: Diminished Bowel Sounds, Distended, Soft. absent: Tenderness - Rectal Exam Rectal Exam: Deferred - Exam Exam: NORMAL INSPECTION - Extremities Exam Extremities exam: Positive for: pedal edema. Negative for: calf tenderness, tenderness, pedal pulses present Additional comments: redness sanjeev incisionally to left stump - Back Exam Back exam: absent: CVA tenderness (L), CVA tenderness (R) - Neurological Exam Neurological exam: Altered - Psychiatric Exam Psychiatric exam: Depressed - Skin Skin Exam: Dry Additional comments: stage III sacrum from NH Results - Vital Signs Recent Vital Signs: Last Vital Signs Temp 98.5 F 04/12/17 09:43 Pulse 102 H 04/12/17 09:43 Resp 18 04/12/17 09:43 BP 112/53 L 04/12/17 09:43 Pulse Ox 96 04/12/17 09:43 - Labs Result Diagrams: 04/11/17 18:55 04/11/17 18:55 Labs: Laboratory Results - last 24 hr 04/11/17 04/11/17 04/11/17 17:43 18:55 18:55 WBC 21.3 H RBC 2.93 L Hgb 8.6 L Hct 27.9 L MCV 95.3 MCH 29.3 MCHC 30.8 L RDW 18.6 H Plt Count 238 MPV 8.4 Neut % (Auto) 90.4 H Lymph % (Auto) 4.6 L [place] % (Auto) 4.6 Eos % (Auto) 0.2 Baso % (Auto) 0.2 Neut # 19.2 H Lymph # 1.0 [place] # 1.0 H Eos # 0.0 Baso # 0.0 Neutrophils % (Manual) 93 H Lymphocytes % (Manual) 4 L Monocytes % (Manual) 3 Platelet Estimate Normal PT 11.7 INR 1.0 APTT 26 Sodium Potassium Chloride Carbon Dioxide Anion Gap BUN Creatinine Est GFR ( Amer) Est GFR (Non-Af Amer) POC Glucose (mg/dL) 336 H Random Glucose Lactic Acid Calcium Total Bilirubin AST ALT Alkaline Phosphatase Troponin I NT-Pro-B Natriuret Pep Total Protein Albumin Globulin Albumin/Globulin Ratio Urine Color Urine Clarity Urine pH Ur Specific [place] Urine Protein Urine Glucose (UA) Urine Ketones Urine Blood Urine Nitrate Urine Bilirubin Urine Urobilinogen Ur Leukocyte Esterase Urine WBC (Auto) Urine RBC (Auto) Ur Squamous Epith Cells Urine Bacteria 04/11/17 04/11/17 04/11/17 18:55 20:43 20:51 WBC RBC Hgb Hct MCV MCH MCHC RDW Plt Count MPV Neut % (Auto) Lymph % (Auto) [place] % (Auto) Eos % (Auto) Baso % (Auto) Neut # Lymph # [place] # Eos # Baso # Neutrophils % (Manual) Lymphocytes % (Manual) Monocytes % (Manual) Platelet Estimate PT INR APTT Sodium 124 L Potassium 3.4 L Chloride 92 L Carbon Dioxide 25 Anion Gap 11 BUN 19 H Creatinine 1.1 Est GFR ( Amer) 59 Est GFR (Non-Af Amer) 49 POC Glucose (mg/dL) Random Glucose 318 H Lactic Acid 3.2 H Calcium 7.1 L Total Bilirubin 0.8 AST 23 ALT 35 Alkaline Phosphatase 346 H D Troponin I 0.1150 NT-Pro-B Natriuret Pep 56436 H Total Protein 4.4 L Albumin 2.1 L Globulin 2.3 Albumin/Globulin Ratio 0.9 L Urine Color K[place]ah Urine Clarity Hazy Urine pH 5.0 Ur Specific [place] 1.022 Urine Protein 2+ H Urine Glucose (UA) 3+ H Urine Ketones Negative Urine Blood Negative Urine Nitrate Negative Urine Bilirubin Negative Urine Urobilinogen Normal Ur Leukocyte Esterase Neg Urine WBC (Auto) 13 H Urine RBC (Auto) 5 H Ur Squamous Epith Cells < 1 Urine Bacteria Rare 04/11/17 04/12/17 04/12/17 20:54 02:00 02:10 WBC RBC Hgb Hct MCV MCH MCHC RDW Plt Count MPV Neut % (Auto) Lymph % (Auto) [place] % (Auto) Eos % (Auto) Baso % (Auto) Neut # Lymph # [place] # Eos # Baso # Neutrophils % (Manual) Lymphocytes % (Manual) Monocytes % (Manual) Platelet Estimate PT INR APTT Sodium Potassium Chloride Carbon Dioxide Anion Gap BUN Creatinine Est GFR ( Amer) Est GFR (Non-Af Amer) POC Glucose (mg/dL) 309 H 401 H* Random Glucose Lactic Acid 0.6 L Calcium Total Bilirubin AST ALT Alkaline Phosphatase Troponin I NT-Pro-B Natriuret Pep Total Protein Albumin Globulin Albumin/Globulin Ratio Urine Color Urine Clarity Urine pH Ur Specific [place] Urine Protein Urine Glucose (UA) Urine Ketones Urine Blood Urine Nitrate Urine Bilirubin Urine Urobilinogen Ur Leukocyte Esterase Urine WBC (Auto) Urine RBC (Auto) Ur Squamous Epith Cells Urine Bacteria 04/12/17 04/12/17 06:34 12:00 WBC RBC Hgb Hct MCV MCH MCHC RDW Plt Count MPV Neut % (Auto) Lymph % (Auto) [place] % (Auto) Eos % (Auto) Baso % (Auto) Neut # Lymph # [place] # Eos # Baso # Neutrophils % (Manual) Lymphocytes % (Manual) Monocytes % (Manual) Platelet Estimate PT INR APTT Sodium Potassium Chloride Carbon Dioxide Anion Gap BUN Creatinine Est GFR ( Amer) Est GFR (Non-Af Amer) POC Glucose (mg/dL) 243 H 297 H Random Glucose Lactic Acid Calcium Total Bilirubin AST ALT Alkaline Phosphatase Troponin I NT-Pro-B Natriuret Pep Total Protein Albumin Globulin Albumin/Globulin Ratio Urine Color Urine Clarity Urine pH Ur Specific [place] Urine Protein Urine Glucose (UA) Urine Ketones Urine Blood Urine Nitrate Urine Bilirubin Urine Urobilinogen Ur Leukocyte Esterase Urine WBC (Auto) Urine RBC (Auto) Ur Squamous Epith Cells Urine Bacteria Assessment & Plan (1) Elevated WBC count Status: Acute (2) S/P BKA (below knee amputation) Status: Acute Priority: High (3) Sacral decubitus ulcer, stage III Status: Acute (4) Sepsis Status: Acute - Assessment and Plan (Free Text) Assessment: sepsis picture likely from sacrum and or wound left BKA cont IV rx pending cultures may need debridement of wounds discussed with dr figueroa
[2017-04-12] MEDS: Latanoprost 2.5 ml Opht Soln OU SCH (21:30)
[2017-04-13] MEDS: Thiamine 100 mg/ml Inj IV SCH ×3 (05:30→22:06)
[2017-04-13] MEDS: (Novolin R) Insulin Human Regular 100 units/ml vial SC SCH ×4 (08:13→21:47)
[2017-04-13] MEDS: Gentamicin 80 mg in 0.9% NS 80 MG/100 ML BAG IVPB SCH (09:00)
[2017-04-13] MEDS ORDERED: Vancomycin 1 gm/NS 200 ml 1 GM/200 ML BAG IVPB SCH (09:00)
[2017-04-13] MEDS: Multivitamin Vitamin B Complex (Nephro-Vite) Tab PO SCH (09:00)
--- NOTE | 2017-04-13 10:37 | CP.PCM.PN ---
Subjective - Date & Time of Evaluation Date of Evaluation: 04/13/17 Time of Evaluation: 09:00 - Subjective Subjective: Medicine Note ( PGY-1) -> Dr. Myrick's service Patient was seen and examined at bedside. Patient's was at bedside. Patient is verbal with incoherent speech and mildly lethargic. Unable to evaluate adequate ROS due to patient's condition. HD consent was obtained from patient's . Objective - Vital Signs/Intake and Output Vital Signs (last 24 hours): Temp Pulse Resp BP Pulse Ox 98.0 F 82 20 145/65 100 04/13/17 07:45 04/13/17 07:45 04/13/17 07:45 04/13/17 07:45 04/13/17 07:45 Intake and Output: 04/13/17 04/13/17 06:59 18:59 Intake Total 1220 Output Total 60 Balance 1160 - Medications Medications: Current Medications Acetaminophen (Tylenol 325mg Tab) 650 mg PO Q6 PRN PRN Reason: Pain, moderate (4-7) Amlodipine Besylate (Norvasc) 5 mg PO DAILY [facility] Last Admin: 04/12/17 11:00 Dose: Not Given Brimonidine Tartrate (Alphagan 0.2% Opht) 1 ml OU TID [facility] Last Admin: 04/12/17 17:50 Dose: 1 drop Epoetin Maxwell (Procrit) 10,000 unit IV TTS [facility] Ergocalciferol (Drisdol 50,000 Intl Units Cap) 1 cap PO Q7D [facility] Last Admin: 04/12/17 00:14 Dose: Not Given Furosemide (Lasix) 40 mg PO DAILY [facility] Last Admin: 04/12/17 11:00 Dose: Not Given Heparin Sodium (Porcine) (Heparin) 5,000 units SC Q12H [facility] Last Admin: 04/12/17 21:29 Dose: 5,000 units Hydralazine HCl (Apresoline) 25 mg PO BID [facility] Last Admin: 04/12/17 21:26 Dose: Not Given Hydromorphone HCl (Dilaudid) 0.5 mg IVP Q4H PRN PRN Reason: Pain, severe (8-10) Dextrose/Sodium Chloride (Dextrose 5%/0.45% Ns 1000 Ml) 1,000 mls @ 60 mls/hr IV .[id number] [facility] Last Admin: 04/12/17 13:19 Dose: 60 mls/hr Vancomycin/Sodium Chloride (Vancomycin 1 Gm/Ns 200 Ml) 1 gm in 200 mls @ 133.333 mls/hr [place] [facility] Gent[place]in Sulfate/Sodium Chloride (Gentamicin Iv 80 Mg Premix) 80 mg in 100 mls @ 100 mls/hr [place]PB [facility] Last Admin: 04/13/17 09:00 Dose: 100 mls/hr Insulin Human Regular (Novolin R) 0 unit SC [facility] PRN Reason: Protocol Last Admin: 04/13/17 08:13 Dose: Not Given Latanoprost (Xalatan Opht) 0.02 ml OU [facility] Last Admin: 04/12/17 21:30 Dose: 0.02 ml Lisinopril (Zestril) 20 mg PO DAILY [facility] Last Admin: 04/12/17 11:00 Dose: Not Given Pantoprazole Sodium (Protonix Ec Tab) 40 mg PO DAILY [facility] Last Admin: 04/12/17 11:00 Dose: Not Given Rosuvastatin Calcium (Crestor) 10 mg PO HS [facility] Last Admin: 04/12/17 21:26 Dose: 10 mg Thiamine HCl (Vitamin B1 Inj) 100 mg IV Q8H [facility] Last Admin: 04/13/17 05:30 Dose: 100 mg Timolol Maleate (Timoptic 0.5% Ophth Soln) 1 drop OU BID [facility] Last Admin: 04/12/17 17:48 Dose: 1 drop Vitamin B Complex/Vit C/Folic Acid (Nephro-Kevin) 1 tab PO 0800 [facility] Last Admin: 04/12/17 08:01 Dose: Not Given - Labs Labs: 04/11/17 18:55 04/11/17 18:55 PT 11.7 SECONDS (9.7-12.2) 04/11/17 18:55 INR 1.0 04/11/17 18:55 APTT 26 SECONDS (21-34) 04/11/17 18:55 - Head Exam Head Exam: ATRAUMATIC, NORMAL INSPECTION - Eye Exam Eye Exam: EOMI - Respiratory Exam Respiratory Exam: Clear to Ausculation Bilateral, NORMAL BREATHING PATTERN - Cardiovascular Exam Cardiovascular Exam: REGULAR RHYTHM, +S1, +S2 - GI/Abdominal Exam GI & Abdominal Exam: Normal Bowel Sounds - Extremities Exam Extremities Exam: Pedal Edema Additional comments: +1 pitting edema Left BKA stump in dressing, dressing is clean, dry and intact. - Neurological Exam Additional comments: B/L UE edema - Psychiatric Exam Psychiatric exam: Flat Affect - Skin Skin Exam: Pallor Assessment and Plan (1) Sepsis Assessment & Plan: ID, Dr. Wellington, help appreciated On admission: WBC: 21.3, HR: 107 Sacral culture (04/11/17) : Gram negative kendy Blood culture (04/11/17): Gram positive cocci S/P Left BKA (04/11/17): Gram negative kendy Medications: * Gentamicin 80mg IVPB HD * Zosyn 2.25gm IVPB Q8 * Vancomycin 1gm IVPB on HD Status: Acute (2) End stage renal disease on dialysis Assessment & Plan: Dinkey Driver, Dr. Ambrose---> Help appreciated * Management as per recommendation Management/Medications: On HD (TTS) * Via Left Arm shunt Ergocalciferol 1 cap PO Q7D Procrit 10,000 unit IV MWF Ferric sodium gluconate 125 mg MWF Nephrovite Status: Chronic (3) Sacral decubitus ulcer, stage III Assessment & Plan: General Surgery, Dr. Broussard consulted * Management as per recommendation SHIRIN, Dr. Wellington consulted Lab: Gram Negative kendy, awaiting microorganism and sensitivity Medication: * Gentamicin 80mg IVPB HD * Zosyn 2.25gm IVPB Q8 Status: Acute (4) S/P BKA (below knee amputation) Assessment & Plan: General Surgery, Dr. Broussard---> Help appreciated Dr. Amish CARPIO----> Help appreciated Lab: Wound culture: Gram negative kendy Medications: * Gentamicin 80mg IVPB HD * Zosyn 2.25gm IVPB Q8 Status: Acute (5) Anemia, chronic disease Assessment & Plan: Monitoe H/H Medication: * Procrit 10,000 unit IV TTS ( on HD) * Vitamin B1 100mg IV Q8H * Nephro kevin Status: Chronic (6) Glaucoma Assessment & Plan: Medications: * Timolol 0.5% OU BID * Latanoprost 0.02 ml OU HS * Brimonidine 1ml OU TID Status: Acute (7) DM2 (diabetes mellitus, type 2) Assessment & Plan: Management/Medication: * Accuchecks * ISS medium dose Status: Chronic (8) History of CHF (congestive heart failure) Assessment & Plan: Medication: * Lasix 40mg PO daily Status: Acute (9) Hypertension Assessment & Plan: Medication: * Norvasc 5mg PO daily * Hydralazine 25mg PO BID * Lisinopril 20mg PO daily Status: Chronic (10) History of hyperlipidemia Assessment & Plan: Crestor 10mg PO HS Status: Acute (11) Prophylactic measure Assessment & Plan: GI: Protonix 40mg PO daily DVT: Heparin 5,000 units SC Q12H PT Status: Acute
[2017-04-13] MEDS: Brimonidine 0.2% Opth Sol (5ml) OU SCH ×3 (10:55→18:28)
[2017-04-13] MEDS: Pantoprazole 40 mg EC Tab PO SCH (10:57)
--- NOTE | 2017-04-13 13:24 | CP.PCM.PN ---
Subjective - Date & Time of Evaluation Date of Evaluation: 04/13/17 Time of Evaluation: 09:00 - Subjective Subjective: wound cultures + iv rx reordered Objective - Vital Signs/Intake and Output Vital Signs (last 24 hours): Temp Pulse Resp BP Pulse Ox 98.0 F 89 20 121/69 100 04/13/17 07:45 04/13/17 10:57 04/13/17 07:45 04/13/17 10:58 04/13/17 07:45 Intake and Output: 04/13/17 04/13/17 06:59 18:59 Intake Total 1220 Output Total 60 Balance 1160 - Medications Medications: Current Medications Acetaminophen (Tylenol 325mg Tab) 650 mg PO Q6 PRN PRN Reason: Pain, moderate (4-7) Amlodipine Besylate (Norvasc) 5 mg PO DAILY [facility] Last Admin: 04/12/17 11:00 Dose: Not Given Brimonidine Tartrate (Alphagan 0.2% Opht) 1 ml OU TID [facility] Last Admin: 04/13/17 10:55 Dose: 1 drop Epoetin Maxwell (Procrit) 10,000 unit IV [facility] Stop: 04/22/17 09:01 Ergocalciferol (Drisdol 50,000 Intl Units Cap) 1 cap PO Q7D [facility] Last Admin: 04/12/17 00:14 Dose: Not Given Ferric Sodium Gluconate Complex (Ferrlecit) 125 mg IVPB [facility] Stop: 04/22/17 09:01 Furosemide (Lasix) 40 mg PO DAILY [facility] Last Admin: 04/13/17 10:58 Dose: 40 mg Heparin Sodium (Porcine) (Heparin) 5,000 units SC Q12H [facility] Last Admin: 04/13/17 11:10 Dose: Not Given Hydralazine HCl (Apresoline) 25 mg PO BID [facility] Last Admin: 04/12/17 21:26 Dose: Not Given Hydromorphone HCl (Dilaudid) 0.5 mg IVP Q4H PRN PRN Reason: Pain, severe (8-10) Dextrose/Sodium Chloride (Dextrose 5%/0.45% Ns 1000 Ml) 1,000 mls @ 60 mls/hr IV .[id number] [facility] Last Admin: 04/12/17 13:19 Dose: 60 mls/hr Vancomycin/Sodium Chloride (Vancomycin 1 Gm/Ns 200 Ml) 1 gm in 200 mls @ 133.333 mls/hr IVPB [facility] Gentamicin Sulfate/Sodium Chloride (Gentamicin Iv 80 Mg Premix) 80 mg in 100 mls @ 100 mls/hr IVPB [facility] Last Admin: 04/13/17 09:00 Dose: 100 mls/hr Insulin Human Regular (Novolin R) 0 unit [facility] PRN Reason: Protocol Last Admin: 04/13/17 08:13 Dose: Not Given Latanoprost (Xalatan Opht) 0.02 ml OU HS [facility] Last Admin: 04/12/17 21:30 Dose: 0.02 ml Lisinopril (Zestril) 20 mg PO DAILY [facility] Last Admin: 04/12/17 11:00 Dose: Not Given Pantoprazole Sodium (Protonix Ec Tab) 40 mg PO DAILY [facility] Last Admin: 04/13/17 10:57 Dose: 40 mg Rosuvastatin Calcium (Crestor) 10 mg PO HS [facility] Last Admin: 04/12/17 21:26 Dose: 10 mg Thiamine HCl (Vitamin B1 Inj) 100 mg IV Q8H [facility] Last Admin: 04/13/17 05:30 Dose: 100 mg Timolol Maleate (Timoptic 0.5% Oph Soln) 1 drop OU BID [facility] Last Admin: 04/13/17 10:58 Dose: 1 drop Vitamin B Complex/Vit C/Folic Acid (Nephro-Alonzo) 1 tab PO 0800 [facility] Last Admin: 04/13/17 09:00 Dose: Not Given - Labs Labs: 04/11/17 18:55 04/11/17 18:55 PT 11.7 SECONDS (9.7-12.2) 04/11/17 18:55 INR 1.0 04/11/17 18:55 APTT 26 SECONDS (21-34) 04/11/17 18:55 - Constitutional Appears: Non-toxic, Confused, Chronically Ill - Head Exam Head Exam: NORMOCEPHALIC - Eye Exam Eye Exam: PERRL - ENT Exam ENT Exam: Mucous Membranes Dry - Neck Exam Neck Exam: absent: Thyromegaly - Respiratory Exam Respiratory Exam: Decreased Breath Sounds - Cardiovascular Exam Cardiovascular Exam: REGULAR RHYTHM - GI/Abdominal Exam GI & Abdominal Exam: Distended - Rectal Exam Rectal Exam: Deferred - Exam Exam: NORMAL INSPECTION - Extremities Exam Extremities Exam: absent: Pedal Edema - Back Exam Back Exam: absent: CVA tenderness (L), CVA tenderness (R) Assessment and Plan (1) Elevated WBC count Status: Acute (2) S/P BKA (below knee amputation) Status: Acute (3) Sacral decubitus ulcer, stage III Status: Acute (4) Sepsis Status: Acute - Assessment and Plan (Free Text) Assessment: may need debridement
[2017-04-13 15:02] LABS: BASO % 0.2 % (0.0-2.0); EOS % 0.1 % (0.0-4.0); LYMPH % 5.1 % (20.0-40.0); MEAN CELL VOLUME 95.8 fL (81.0-99.0); MEAN CORPUSCULAR HGB CONC 31.3 g/dL (33.0-37.0); MEAN PLATELET VOLUME 8.3 fL (7.2-11.7); MONO # 0.8 K/uL (0.0-0.8); MONO % 4.1 % (0.0-10.0); PLATELET COUNT 292 K/uL (130-400); RED CELL DISTRIBUTION WIDTH 18.5 % (11.5-14.5); WHITE BLOOD COUNT 19.2 K/uL (4.8-10.8)
[2017-04-13] MEDS: Ferric Sodium Gluconat Complex 62.5 mg/5 ml Vial IVPB SCH (15:24)
[2017-04-13] MEDS: Epoetin Alfa 10,000 unit/ml Dialysis IV SCH (15:25)
[2017-04-13 15:32] LABS: ALB/GLOB RATIO 0.8 (1.0-2.1); BILIRUBIN,TOTAL 0.5 mg/dL (0.2-1.3); CALCIUM 6.7 mg/dl (8.6-10.4); MAGNESIUM 1.7 mg/dL (1.6-2.3); PHOSPHOROUS 3.5 mg/dL (2.5-4.5); POTASSIUM 3.4 mmol/L (3.6-5.2); TOTAL PROTEIN 3.7 g/dL (6.3-8.3)
[2017-04-13 15:39] LABS: NEUTROPHIL 88 % (50-75); TOTAL CELLS COUNTED 100
--- NOTE | 2017-04-13 17:27 | CARD ---
APPROVED REPORT EKG Measurement Heart [id number] UT [id number] <Conclusion> Sinus tachycardia Left axis deviation ST & T wave abnormality, consider lateral ischemia Abnormal ECG
[2017-04-13] MEDS: Piperacill/Tazo 2.25gm in Dex 2.25 GM/50 ML BAG IVPB SCH ×2 (18:31→22:05)
--- NOTE | 2017-04-13 20:10 | CP.PCM.PN ---
Subjective - Date & Time of Evaluation Date of Evaluation: 04/13/17 Time of Evaluation: 15:00 - Subjective Subjective: SEEN ON RENAL F/U SEEN ON HD .. ORDERS REVIEWD WITH HD - RN LABS REVIEWED ALL PREVIOUS EMR REVIEWED Objective - Vital Signs/Intake and Output Vital Signs (last 24 hours): Temp Pulse Resp BP Pulse Ox 98.1 F 82 18 138/65 100 04/13/17 17:05 04/13/17 17:05 04/13/17 17:05 04/13/17 17:05 04/13/17 17:05 Intake and Output: 04/13/17 04/14/17 18:59 06:59 Intake Total 343 Output Total 20 Balance 323 - Medications Medications: Current Medications Acetaminophen (Tylenol 325mg Tab) 650 mg PO Q6 PRN PRN Reason: Pain, moderate (4-7) Amlodipine Besylate (Norvasc) 5 mg PO DAILY [facility] Last Admin: 04/13/17 13:51 Dose: Not Given Brimonidine Tartrate (Alphagan 0.2% Opht) 1 ml OU TID [facility] Last Admin: 04/13/17 18:28 Dose: 1 drop Epoetin Maxwell (Procrit) 10,000 unit IV [facility] Stop: 04/22/17 09:01 Last Admin: 04/13/17 15:25 Dose: 10,000 unit Ergocalciferol (Drisdol 50,000 Intl Units Cap) 1 cap PO Q7D [facility] Last Admin: 04/12/17 00:14 Dose: Not Given Ferric Sodium Gluconate Complex (Ferrlecit) 125 mg IVPB [facility] Stop: 04/22/17 09:01 Last Admin: 04/13/17 15:24 Dose: 125 mg Furosemide (Lasix) 40 mg PO DAILY [facility] Last Admin: 04/13/17 10:58 Dose: 40 mg Heparin Sodium (Porcine) (Heparin) 5,000 units SC Q12H [facility] Last Admin: 04/13/17 11:10 Dose: Not Given Hydralazine HCl (Apresoline) 25 mg PO BID [facility] Last Admin: 04/13/17 18:28 Dose: 25 mg Hydromorphone HCl (Dilaudid) 0.5 mg IVP Q4H PRN PRN Reason: Pain, severe (8-10) Dextrose/Sodium Chloride (Dextrose 5%/0.45% Ns 1000 Ml) 1,000 mls @ 60 mls/hr IV .[id number] [facility] Last Admin: 04/12/17 13:19 Dose: 60 mls/hr Vancomycin/Sodium Chloride (Vancomycin 1 Gm/Ns 200 Ml) 1 gm in 200 mls @ 133.333 mls/hr IVPB MWF [facility] Last Admin: 04/13/17 18:30 Dose: 133.333 mls/hr Gentamicin Sulfate/Sodium Chloride (Gentamicin Iv 80 Mg Premix) 80 mg in 100 mls @ 100 mls/hr IVPB MWF [facility] Last Admin: 04/13/17 09:00 Dose: 100 mls/hr Piperacillin Sod/Tazobactam Sod (Zosyn 2.25 Gm Iv Premix) 2.25 gm in 50 mls @ 200 mls/hr IVPB Q8 [facility] Last Admin: 04/13/17 18:31 Dose: 200 mls/hr Insulin Human Regular (Novolin R) 0 unit SC ACHS [facility] PRN Reason: Protocol Last Admin: 04/13/17 17:15 Dose: 4 unit Latanoprost (Xalatan Opht) 0.02 ml OU HS [facility] Last Admin: 04/12/17 21:30 Dose: 0.02 ml Lisinopril (Zestril) 20 mg PO DAILY [facility] Last Admin: 04/13/17 13:52 Dose: Not Given Pantoprazole Sodium (Protonix Ec Tab) 40 mg PO DAILY [facility] Last Admin: 04/13/17 10:57 Dose: 40 mg Rosuvastatin Calcium (Crestor) 10 mg PO HS [facility] Last Admin: 04/12/17 21:26 Dose: 10 mg Thiamine HCl (Vitamin B1 Inj) 100 mg IV Q8H [facility] Last Admin: 04/13/17 13:52 Dose: Not Given Timolol Maleate (Timoptic 0.5% Ophth Soln) 1 drop OU BID [facility] Last Admin: 04/13/17 18:28 Dose: 1 drop Vitamin B Complex/Vit C/Folic Acid (Nephro-Alonzo) 1 tab PO 0800 [facility] Last Admin: 04/13/17 09:00 Dose: Not Given - Labs Labs: 04/13/17 14:55 04/13/17 14:55 PT 11.7 SECONDS (9.7-12.2) 04/11/17 18:55 INR 1.0 04/11/17 18:55 APTT 26 SECONDS (21-34) 04/11/17 18:55
[2017-04-13] MEDS: Latanoprost 2.5 ml Opht Soln OU SCH (22:55)
[2017-04-14] MEDS: Thiamine 100 mg/ml Inj IV SCH ×3 (05:29→22:38)
[2017-04-14] MEDS: Piperacill/Tazo 2.25gm in Dex 2.25 GM/50 ML BAG IVPB SCH ×3 (05:32→22:48)
[2017-04-14 06:54] LABS: BASO % 0.2 % (0.0-2.0); EOS % 0.2 % (0.0-4.0); LYMPH # 1.1 K/uL (1.0-4.3); LYMPH % 5.6 % (20.0-40.0); MEAN CELL VOLUME 97.1 fL (81.0-99.0); MEAN CORPUSCULAR HEMOGLOBIN 29.9 pg (27.0-31.0); MEAN CORPUSCULAR HGB CONC 30.8 g/dL (33.0-37.0); MEAN PLATELET VOLUME 8.5 fL (7.2-11.7); MONO # 1.1 K/uL (0.0-0.8); MONO % 5.7 % (0.0-10.0); PLATELET COUNT 281 K/uL (130-400); RED CELL DISTRIBUTION WIDTH 19.2 % (11.5-14.5); WHITE BLOOD COUNT 19.4 K/uL (4.8-10.8)
[2017-04-14 07:02] LABS: ALB/GLOB RATIO 0.6 (1.0-2.1); BILIRUBIN,TOTAL 0.4 mg/dL (0.2-1.3); CALCIUM 6.7 mg/dl (8.6-10.4); MAGNESIUM 1.7 mg/dL (1.6-2.3); PHOSPHOROUS 3.1 mg/dL (2.5-4.5); POTASSIUM 3.2 mmol/L (3.6-5.2); TOTAL PROTEIN 4.5 g/dL (6.3-8.3)
[2017-04-14 08:22] LABS: NEUTROPHIL 90 % (50-75); TOTAL CELLS COUNTED 100
[2017-04-14] MEDS ORDERED: (Novolog) Insulin Aspart, Recombinant 100 u/ml 10 ml vial SC ONE (09:13)
[2017-04-14] MEDS: (Novolin R) Insulin Human Regular 100 units/ml vial SC SCH ×4 (09:15→22:45)
[2017-04-14] MEDS ORDERED: Epoetin Alfa 10,000 unit/ml Dialysis IV SCH (10:00)
[2017-04-14] MEDS: Multivitamin Vitamin B Complex (Nephro-Vite) Tab PO SCH (10:02)
[2017-04-14] MEDS ORDERED: Potassium Chloride 20 mEq/15 ml LIQ UD PO ONE (10:09)
[2017-04-14] MEDS: Brimonidine 0.2% Opth Sol (5ml) OU SCH ×3 (10:23→18:40)
[2017-04-14] MEDS: Pantoprazole 40 mg EC Tab PO SCH (10:24)
--- NOTE | 2017-04-14 11:40 | CP.PCM.PN ---
Subjective - Date & Time of Evaluation Date of Evaluation: 04/14/17 Time of Evaluation: 09:00 - Subjective Subjective: iv rx in progress cultures noted cont iv antibiotics will need debridement Objective - Vital Signs/Intake and Output Vital Signs (last 24 hours): Temp Pulse Resp BP Pulse Ox 98.7 F 106 H 18 124/71 100 04/14/17 08:37 04/14/17 10:21 04/14/17 08:37 04/14/17 10:37 04/14/17 08:37 Intake and Output: 04/14/17 04/14/17 06:59 18:59 Intake Total 670 Output Total 100 Balance 570 - Medications Medications: Current Medications Acetaminophen (Tylenol 325mg Tab) 650 mg PO Q6 PRN PRN Reason: Pain, moderate (4-7) Amlodipine Besylate (Norvasc) 5 mg PO DAILY [facility] Last Admin: 04/14/17 10:24 Dose: 5 mg Brimonidine Tartrate (Alphagan 0.2% Opht) 1 ml OU TID [facility] Last Admin: 04/14/17 10:23 Dose: 1 drop Epoetin Maxwell (Procrit) 10,000 unit IV [facility] Stop: 04/22/17 09:01 Last Admin: 04/13/17 15:25 Dose: 10,000 unit Ergocalciferol (Drisdol 50,000 Intl Units Cap) 1 cap PO Q7D [facility] Last Admin: 04/12/17 00:14 Dose: Not Given Ferric Sodium Gluconate Complex (Ferrlecit) 125 mg IVPB [facility] Stop: 04/22/17 09:01 Last Admin: 04/13/17 15:24 Dose: 125 mg Furosemide (Lasix) 40 mg PO DAILY [facility] Last Admin: 04/14/17 10:37 Dose: 40 mg Heparin Sodium (Porcine) (Heparin) 5,000 units SC Q12H [facility] Last Admin: 04/14/17 10:27 Dose: 5,000 units Hydralazine HCl (Apresoline) 25 mg PO BID [facility] Last Admin: 04/14/17 10:24 Dose: 25 mg Hydromorphone HCl (Dilaudid) 0.5 mg IVP Q4H PRN PRN Reason: Pain, severe (8-10) Dextrose/Sodium Chloride (Dextrose 5%/0.45% Ns 1000 Ml) 1,000 mls @ 60 mls/hr IV .[id number] [facility] Last Admin: 04/12/17 13:19 Dose: 60 mls/hr Vancomycin/Sodium Chloride (Vancomycin 1 Gm/Ns 200 Ml) 1 gm in 200 mls @ 133.333 mls/hr IVPB MWF [facility] Last Admin: 04/13/17 18:30 Dose: 133.333 mls/hr Gentamicin Sulfate/Sodium Chloride (Gentamicin Iv 80 Mg Premix) 80 mg in 100 mls @ 100 mls/hr IVPB F [facility] Last Admin: 04/13/17 09:00 Dose: 100 mls/hr Piperacillin Sod/Tazobactam Sod (Zosyn 2.25 Gm Iv Premix) 2.25 gm in 50 mls @ 200 mls/hr IVPB Q8 [facility] Last Admin: 04/14/17 05:32 Dose: 200 mls/hr Insulin Human Regular (Novolin R) 0 unit SC ACHS [facility] PRN Reason: Protocol Last Admin: 04/13/17 21:47 Dose: Not Given Latanoprost (Xalatan Opht) 0.02 ml OU HS [facility] Last Admin: 04/13/17 22:55 Dose: 0.02 ml Lisinopril (Zestril) 20 mg PO DAILY [facility] Last Admin: 04/13/17 13:52 Dose: Not Given Pantoprazole Sodium (Protonix Ec Tab) 40 mg PO DAILY [facility] Last Admin: 04/14/17 10:24 Dose: 40 mg Rosuvastatin Calcium (Crestor) 10 mg PO HS [facility] Last Admin: 04/13/17 22:06 Dose: 10 mg Thiamine HCl (Vitamin B1 Inj) 100 mg IV Q8H [facility] Last Admin: 04/14/17 05:29 Dose: 100 mg Timolol Maleate (Timoptic 0.5% Ophth Soln) 1 drop OU BID [facility] Last Admin: 04/14/17 10:30 Dose: 1 drop Vitamin B Complex/Vit C/Folic Acid (Nephro-Alonzo) 1 tab PO 0800 [facility] Last Admin: 04/14/17 10:02 Dose: Not Given - Labs Labs: 04/14/17 06:36 04/14/17 06:36 PT 11.7 SECONDS (9.7-12.2) 04/11/17 18:55 INR 1.0 04/11/17 18:55 APTT 26 SECONDS (21-34) 04/11/17 18:55 - Constitutional Appears: Non-toxic, Chronically Ill - Head Exam Head Exam: NORMOCEPHALIC - Eye Exam Eye Exam: PERRL - ENT Exam ENT Exam: Mucous Membranes Dry - Neck Exam Neck Exam: absent: Lymphadenopathy - Respiratory Exam Respiratory Exam: Decreased Breath Sounds - Cardiovascular Exam Cardiovascular Exam: REGULAR RHYTHM - GI/Abdominal Exam GI & Abdominal Exam: Distended Assessment and Plan (1) Elevated WBC count Status: Acute (2) S/P BKA (below knee amputation) Status: Acute (3) Sacral decubitus ulcer, stage III Status: Acute (4) Sepsis Status: Acute
[2017-04-14] MEDS ORDERED: (Novolin R) Insulin Human Regular 100 units/ml vial SC ONE ×2 (11:45→13:30)
[2017-04-14] MEDS: Linezolid 600 mg in D5W 300 ml 600 MG/300 ML BAG IVPB SCH (14:22)
--- NOTE | 2017-04-14 15:47 | CP.PCM.PN ---
Subjective - Date & Time of Evaluation Date of Evaluation: 04/14/17 Time of Evaluation: 07:00 - Subjective Subjective: Patient was seen and examined at bedside. Patient was requesting for her at bedside but did not verbalize much. Unable to evaluate ROS due to patient's current condition. Objective - Vital Signs/Intake and Output Vital Signs (last 24 hours): Temp Pulse Resp BP Pulse Ox 98.7 F 106 H 18 124/71 100 04/14/17 08:37 04/14/17 10:21 04/14/17 08:37 04/14/17 10:37 04/14/17 08:37 Intake and Output: 04/14/17 04/14/17 06:59 18:59 Intake Total 670 Output Total 100 Balance 570 - Medications Medications: Current Medications Acetaminophen (Tylenol 325mg Tab) 650 mg PO Q6 PRN PRN Reason: Pain, moderate (4-7) Amlodipine Besylate (Norvasc) 5 mg PO DAILY [facility] Last Admin: 04/14/17 10:24 Dose: 5 mg Brimonidine Tartrate (Alphagan 0.2% Opht) 1 ml OU TID [facility] Last Admin: 04/14/17 13:30 Dose: 1 drop Epoetin Maxwell (Procrit) 10,000 unit IV [facility] Stop: 04/22/17 09:01 Last Admin: 04/13/17 15:25 Dose: 10,000 unit Ergocalciferol (Drisdol 50,000 Intl Units Cap) 1 cap PO Q7D [facility] Last Admin: 04/12/17 00:14 Dose: Not Given Ferric Sodium Gluconate Complex (Ferrlecit) 125 mg IVPB [facility] Stop: 04/22/17 09:01 Last Admin: 04/13/17 15:24 Dose: 125 mg Furosemide (Lasix) 40 mg PO DAILY [facility] Last Admin: 04/14/17 10:37 Dose: 40 mg Heparin Sodium (Porcine) (Heparin) 5,000 units SC Q12H [facility] Last Admin: 04/14/17 10:27 Dose: 5,000 units Hydralazine HCl (Apresoline) 25 mg PO BID [facility] Last Admin: 04/14/17 10:24 Dose: 25 mg Hydromorphone HCl (Dilaudid) 0.5 mg IVP Q4H PRN PRN Reason: Pain, severe (8-10) Dextrose/Sodium Chloride (Dextrose 5%/0.45% Ns 1000 Ml) 1,000 mls @ 60 mls/hr IV .[id number] [facility] Last Admin: 04/12/17 13:19 Dose: 60 mls/hr Gentamicin Sulfate/Sodium Chloride (Gentamicin Iv 80 Mg Premix) 80 mg in 100 mls @ 100 mls/hr IVPB MWF [facility] Last Admin: 04/13/17 09:00 Dose: 100 mls/hr Piperacillin Sod/Tazobactam Sod (Zosyn 2.25 Gm Iv Premix) 2.25 gm in 50 mls @ 200 mls/hr IVPB Q8 [facility] Last Admin: 04/14/17 13:31 Dose: 200 mls/hr Linezolid (Zyvox 600mg/300ml D5w) 600 mg in 300 mls @ 200 mls/hr IVPB Q12H [facility] Last Admin: 04/14/17 14:22 Dose: 200 mls/hr Insulin Human Regular (Novolin R) 0 unit SC ACHS [facility] PRN Reason: Protocol Last Admin: 04/14/17 14:05 Dose: Not Given Latanoprost (Xalatan Opht) 0.02 ml OU HS [facility] Last Admin: 04/13/17 22:55 Dose: 0.02 ml Lisinopril (Zestril) 20 mg PO DAILY [facility] Last Admin: 04/14/17 13:40 Dose: Not Given Pantoprazole Sodium (Protonix Ec Tab) 40 mg PO DAILY [facility] Last Admin: 04/14/17 10:24 Dose: 40 mg Rosuvastatin Calcium (Crestor) 10 mg PO HS [facility] Last Admin: 04/13/17 22:06 Dose: 10 mg Thiamine HCl (Vitamin B1 Inj) 100 mg IV Q8H [facility] Last Admin: 04/14/17 13:30 Dose: 100 mg Timolol Maleate (Timoptic 0.5% Oph Soln) 1 drop OU BID [facility] Last Admin: 04/14/17 10:30 Dose: 1 drop Vitamin B Complex/Vit C/Folic Acid (Nephro-Kevin) 1 tab PO 0800 [facility] Last Admin: 04/14/17 10:02 Dose: Not Given - Labs Labs: 04/14/17 06:36 04/14/17 06:36 PT 11.7 SECONDS (9.7-12.2) 04/11/17 18:55 INR 1.0 04/11/17 18:55 APTT 26 SECONDS (21-34) 04/11/17 18:55 - Constitutional Appears: No Acute Distress - Head Exam Head Exam: ATRAUMATIC - Eye Exam Eye Exam: EOMI - ENT Exam ENT Exam: Mucous Membranes Dry - Respiratory Exam Respiratory Exam: NORMAL BREATHING PATTERN Additional comments: clear to auscultation anteriorly Limited exam due to patient's habitus - Cardiovascular Exam Cardiovascular Exam: REGULAR RHYTHM, +S1, +S2 - GI/Abdominal Exam GI & Abdominal Exam: Soft, Normal Bowel Sounds. absent: Distended, Guarding, Rigid, Tenderness - Extremities Exam Extremities Exam: Pedal Edema Additional comments: Left BKA with drainage Right leg +1 pitting edema - Neurological Exam Neurological Exam: Alert, Awake. absent: Oriented x3 - Skin Skin Exam: Pallor Additional comments: Plans for transfusion of 2 units of PRBC Assessment and Plan (1) Sepsis Assessment & Plan: Infectious Disease, Dr. Wellington on board----> help appreciated Leukocytosis resolving, no bandemia On admission: WBC: 21.3, HR: 107 Sacral culture (04/11/17) : Gram negative kendy, proteus mirabilis Blood culture (04/11/17): Gram positive cocci, Staphyl aureus and coag-negative staph S/P Left BKA (04/11/17): Gram negative kendy, proteus mirabilis, klebsiella pneumonia and vancomycin resistance E.faecium Medications: * Gentamicin 80mg IVPB HD * Zosyn 2.25gm IVPB Q8H * Vancomycin 1gm IVPB on HD---> Discontinued * Linezolid 600mg IVPB Q12H ---> Started on 04/14 Status: Acute (2) End stage renal disease on dialysis Assessment & Plan: [employer], Dr. Ambrose---> Help appreciated * Management as per recommendation Management/Medications: On HD (TTS) * Via Left Arm shunt Ergocalciferol 1 cap PO Q7D Procrit 10,000 unit IV MWF Ferric sodium gluconate 125 mg MWF Nephrovite Status: Chronic (3) Sacral decubitus ulcer, stage III Assessment & Plan: General Surgery, Dr. Broussard consulted * No surgical intervention at this time ID, Dr. Wellington consulted Lab: Gram Negative kendy, proteus mirabilis Medication: * Gentamicin 80mg IVPB HD * Zosyn 2.25gm IVPB Q8H * Linezolid 600mg IVPB Q12H (started 04/14/17) Status: Acute (4) S/P BKA (below knee amputation) Assessment & Plan: General Surgery, Dr. Broussard---> Help appreciated Dr. Amish CARPIO----> Help appreciated Lab: Wound culture: Gram negative kendy; proteus mirabilis, klebsiella pneumonia and vancomycin resistance E.faecium Medications: * Gentamicin 80mg IVPB HD * Zosyn 2.25gm IVPB Q8H * Linezolid 600mg IVPB Q12H Status: Acute (5) Anemia, chronic disease Assessment & Plan: H/H unstable * Plans to transfuse 2 units of PRBC on HD Medication: * Procrit 10,000 unit IV TTS ( on HD) * Vitamin B1 100mg IV Q8H * Nephro kevin Status: Chronic (6) Glaucoma Assessment & Plan: Medications: * Timolol 0.5% OU BID * Latanoprost 0.02 ml OU HS * Brimonidine 1ml OU TID Status: Acute (7) DM2 (diabetes mellitus, type 2) Assessment & Plan: Management/Medication: * Accuchecks * ISS medium dose * Hypoglycemia protocol Status: Chronic (8) History of CHF (congestive heart failure) Assessment & Plan: Medication: * Lasix 40mg PO daily Status: Acute (9) Hypertension Assessment & Plan: Medication: * Norvasc 5mg PO daily (Held due to peripheral edema) * Hydralazine 25mg PO BID * Lisinopril 20mg PO daily Status: Chronic (10) History of hyperlipidemia Assessment & Plan: Crestor 10mg PO HS Status: Acute (11) Prophylactic measure Assessment & Plan: GI: Protonix 40mg PO daily DVT: Heparin 5,000 units SC Q12H PT Status: Acute
--- NOTE | 2017-04-14 19:54 | CP.PCM.CON ---
History of Present Illness - History of Present Illness History of Present Illness: General Surgery Consult Re: L BKA and sacral decub HPI: 71F well known to the surgical service returning to and code sepsis called. Pt is minimally verbal. Surgery consulted to evaluate L BKA (POD#15) and sacral decub. Chart reviewed. PMH: ESRD (dialysis TTS), CHF, HTN, DM2, PVD, depression, anemia of chronic disease, chronic low back pain, glaucoma PSH: Appendectomy, AV fistula, lower extremity artherectomy, L BKA SH: Lives with in [place]. Per , denies any smoking, denies ETOH or drug abuse Allergies: NKDA Meds: See MAR Review of Systems - Review of Systems Systems not reviewed;Unavailable: Other (minimally verbal) Past Patient History - Infectious Disease Hx of Infectious Diseases: None - Tetanus Immunizations Tetanus Immunization: Unknown - Past Medical History & Family History Past Medical History?: Yes - Past Social History Smoking Status: Never Smoked - CARDIAC Hx Hypercholesterolemia: Yes - PULMONARY Hx Respiratory Disorders: No - NEUROLOGICAL Hx Neurological Disorder: No - HEENT Hx HEENT Problems: Yes Hx Cataracts: Yes - RENAL Hx Chronic Kidney Disease: Yes - ENDOCRINE/METABOLIC Hx Diabetes Mellitus Type 2: Yes - HEMATOLOGICAL/ONCOLOGICAL Hx Anemia: Yes Hx Human Immunodeficiency Virus (HIV): No - INTEGUMENTARY Hx Dermatological Problems: No - MUSCULOSKELETAL/RHEUMATOLOGICAL Hx Musculoskeletal Disorders: Yes Hx Degenerative Joint Disease: Yes - GENITOURINARY/GYNECOLOGICAL Hx Genitourinary Disorders: Yes Hx Urinary Tract Infection: Yes - PSYCHIATRIC Hx Anxiety: Yes Hx Depression: Yes Hx Substance Use: No - SURGICAL HISTORY Hx Appendectomy: Yes - ANESTHESIA Hx Anesthesia: Yes Hx Anesthesia Reactions: No Hx Malignant Hyperthermia: No Meds Allergies/Adverse Reactions: Allergies Allergy/AdvReac Type Severity Reaction Status Date / Time No Known Allergies Allergy Verified 04/11/17 17:38 - Medications Medications: Current Medications Acetaminophen (Tylenol 325mg Tab) 650 mg PO Q6 PRN PRN Reason: Pain, moderate (4-7) Brimonidine Tartrate (Alphagan 0.2% Opht) 1 ml OU TID [facility] Last Admin: 04/14/17 18:40 Dose: 1 drop Epoetin Maxwell (Procrit) 10,000 unit IV MWF [facility] Stop: 04/22/17 09:01 Last Admin: 04/13/17 15:25 Dose: 10,000 unit Ergocalciferol (Drisdol 50,000 Intl Units Cap) 1 cap PO Q7D [facility] Last Admin: 04/12/17 00:14 Dose: Not Given Ferric Sodium Gluconate Complex (Ferrlecit) 125 mg IVPB MWF [facility] Stop: 04/22/17 09:01 Last Admin: 04/13/17 15:24 Dose: 125 mg Furosemide (Lasix) 40 mg PO DAILY [facility] Last Admin: 04/14/17 10:37 Dose: 40 mg Heparin Sodium (Porcine) (Heparin) 5,000 units SC Q12H [facility] Last Admin: 04/14/17 10:27 Dose: 5,000 units Hydralazine HCl (Apresoline) 25 mg PO BID [facility] Last Admin: 04/14/17 18:40 Dose: 25 mg Hydromorphone HCl (Dilaudid) 0.5 mg IVP Q4H PRN PRN Reason: Pain, severe (8-10) Dextrose/Sodium Chloride (Dextrose 5%/0.45% Ns 1000 Ml) 1,000 mls @ 60 mls/hr IV .[id number] [facility] Last Admin: 04/12/17 13:19 Dose: 60 mls/hr Gentamicin Sulfate/Sodium Chloride (Gentamicin Iv 80 Mg Premix) 80 mg in 100 mls @ 100 mls/hr IVPB [facility] Last Admin: 04/13/17 09:00 Dose: 100 mls/hr Piperacillin Sod/Tazobactam Sod (Zosyn 2.25 Gm Iv Premix) 2.25 gm in 50 mls @ 200 mls/hr IVPB Q8 [facility] Last Admin: 04/14/17 13:31 Dose: 200 mls/hr Linezolid (Zyvox 600mg/300ml D5w) 600 mg in 300 mls @ 200 mls/hr IVPB Q12H [facility] Last Admin: 04/14/17 14:22 Dose: 200 mls/hr Insulin Human Regular (Novolin R) 0 unit SC ACHS [facility] PRN Reason: Protocol Last Admin: 04/14/17 18:36 Dose: 4 unit Latanoprost (Xalatan Opht) 0.02 ml OU HS [facility] Last Admin: 04/13/17 22:55 Dose: 0.02 ml Lisinopril (Zestril) 20 mg PO DAILY [facility] Last Admin: 04/14/17 13:40 Dose: Not Given Pantoprazole Sodium (Protonix Ec Tab) 40 mg PO DAILY [facility] Last Admin: 04/14/17 10:24 Dose: 40 mg Rosuvastatin Calcium (Crestor) 10 mg PO HS [facility] Last Admin: 04/13/17 22:06 Dose: 10 mg Thiamine HCl (Vitamin B1 Inj) 100 mg IV Q8H [facility] Last Admin: 04/14/17 13:30 Dose: 100 mg Timolol Maleate (Timoptic 0.5% Ophth Soln) 1 drop OU BID [facility] Last Admin: 04/14/17 18:43 Dose: 1 drop Vitamin B Complex/Vit C/Folic Acid (Nephro-Alonzo) 1 tab PO 0800 [facility] Last Admin: 04/14/17 10:02 Dose: Not Given Physical Exam - Constitutional Appears: Non-toxic, No Acute Distress - Head Exam Head Exam: ATRAUMATIC, NORMOCEPHALIC - Eye Exam Eye Exam: absent: Scleral icterus - ENT Exam ENT Exam: Mucous Membranes Moist Additional comments: trachea midline - Respiratory Exam Respiratory Exam: NORMAL BREATHING PATTERN. absent: Respiratory Distress - Cardiovascular Exam Cardiovascular Exam: RRR, +S1, +S2 - GI/Abdominal Exam GI & Abdominal Exam: Soft. absent: Distended, Tenderness - Rectal Exam Rectal Exam: Deferred - Extremities Exam Extremities exam: Negative for: calf tenderness Additional comments: L BKA, small area of lateral incision with skin necrosis, no drainage - Back Exam Back exam: absent: CVA tenderness (L), CVA tenderness (R) Additional comments: stage 2 sacral decub - Neurological Exam Neurological exam: Alert - Skin Skin Exam: Dry, Warm Results - Vital Signs Recent Vital Signs: Last Vital Signs Temp 98.3 F 04/14/17 16:26 Pulse 75 04/14/17 18:20 Resp 18 04/14/17 16:26 BP 115/69 04/14/17 18:20 Pulse Ox 100 04/14/17 16:26 - Labs Result Diagrams: 04/14/17 06:36 04/14/17 06:36 Labs: Laboratory Results - last 24 hr 04/13/17 04/14/17 04/14/17 21:06 06:36 06:36 WBC 19.4 H RBC 2.57 L Hgb 7.7 L Hct 25.0 L MCV 97.1 MCH 29.9 MCHC 30.8 L RDW 19.2 H Plt Count 281 MPV 8.5 Neut % (Auto) 88.3 H Lymph % (Auto) 5.6 L [place] % (Auto) 5.7 Eos % (Auto) 0.2 Baso % (Auto) 0.2 Neut # 17.2 H Lymph # 1.1 [place] # 1.1 H Eos # 0.0 Baso # 0.0 Neutrophils % (Manual) 90 H Band Neutrophils % 1 Lymphocytes % (Manual) 4 L Monocytes % (Manual) 5 Platelet Estimate Normal Hypochromasia (manual) Moderate Poikilocytosis (manual Slight Anisocytosis (manual) Slight Microcytosis (manual) Slight Target Cells Slight Ovalocytes Slight Karen Cells Slight Sodium 126 L Potassium 3.2 L Chloride 94 L Carbon Dioxide 25 Anion Gap 10 BUN 16 Creatinine 1.1 Est GFR ( Amer) 59 Est GFR (Non-Af Amer) 49 POC Glucose (mg/dL) 256 H Random Glucose 317 H Calcium 6.7 L Phosphorus 3.1 Magnesium 1.7 Total Bilirubin 0.4 AST 19 ALT 32 Alkaline Phosphatase 317 H Total Protein 4.5 L Albumin 1.7 L Globulin 2.8 Albumin/Globulin Ratio 0.6 L 04/14/17 04/14/17 04/14/17 06:46 11:36 13:15 WBC RBC Hgb Hct MCV MCH MCHC RDW Plt Count MPV Neut % (Auto) Lymph % (Auto) [place] % (Auto) Eos % (Auto) Baso % (Auto) Neut # Lymph # [place] # Eos # Baso # Neutrophils % (Manual) Band Neutrophils % Lymphocytes % (Manual) Monocytes % (Manual) Platelet Estimate Hypochromasia (manual) Poikilocytosis (manual Anisocytosis (manual) Microcytosis (manual) Target Cells Ovalocytes Karen Cells Sodium Potassium Chloride Carbon Dioxide Anion Gap BUN Creatinine Est GFR ( Amer) Est GFR (Non-Af Amer) POC Glucose (mg/dL) 367 H 410 H* 359 H Random Glucose Calcium Phosphorus Magnesium Total Bilirubin AST ALT Alkaline Phosphatase Total Protein Albumin Globulin Albumin/Globulin Ratio 04/14/17 16:27 WBC RBC Hgb Hct MCV MCH MCHC RDW Plt Count MPV Neut % (Auto) Lymph % (Auto) [place] % (Auto) Eos % (Auto) Baso % (Auto) Neut # Lymph # [place] # Eos # Baso # Neutrophils % (Manual) Band Neutrophils % Lymphocytes % (Manual) Monocytes % (Manual) Platelet Estimate Hypochromasia (manual) Poikilocytosis (manual Anisocytosis (manual) Microcytosis (manual) Target Cells Ovalocytes Karen Cells Sodium Potassium Chloride Carbon Dioxide Anion Gap BUN Creatinine Est GFR ( Amer) Est GFR (Non-Af Amer) POC Glucose (mg/dL) 298 H Random Glucose Calcium Phosphorus Magnesium Total Bilirubin AST ALT Alkaline Phosphatase Total Protein Albumin Globulin Albumin/Globulin Ratio Assessment & Plan - Assessment and Plan (Free Text) Assessment: 71F with L BKA and sacral decub Plan: Wound Care consulted for decubitous, currently using medihoney and optifoam Monitoe L BKA incision Abx per ID No surgery at this time Will D/W Dr. Bobo Lerner PGY4
--- NOTE | 2017-04-14 20:54 | CP.PCM.PN ---
Subjective - Date & Time of Evaluation Date of Evaluation: 04/14/17 Time of Evaluation: 14:00 - Subjective Subjective: SEEN ON RENAL F/U IN BED IN NAD ANASARCA NOTED .. EXPLAINED TO THE ABOUT THE NECESSITY OF FLIUD RESTRICTION ALSO WILL REMOVE MORE FLIUD ON HD ALL PREVIOUS EMR REVIEWED PT ON HD T T S Objective - Vital Signs/Intake and Output Vital Signs (last 24 hours): Temp Pulse Resp BP Pulse Ox 98.3 F 75 18 115/69 100 04/14/17 16:26 04/14/17 18:20 04/14/17 16:26 04/14/17 18:20 04/14/17 16:26 Intake and Output: 04/14/17 04/15/17 18:59 06:59 Intake Total 350 Output Total 50 Balance 300 - Medications Medications: Current Medications Acetaminophen (Tylenol 325mg Tab) 650 mg PO Q6 PRN PRN Reason: Pain, moderate (4-7) Brimonidine Tartrate (Alphagan 0.2% Opht) 1 ml OU TID [facility] Last Admin: 04/14/17 18:40 Dose: 1 drop Epoetin Maxwell (Procrit) 10,000 unit IV [facility] Stop: 04/22/17 09:01 Last Admin: 04/13/17 15:25 Dose: 10,000 unit Ergocalciferol (Drisdol 50,000 Intl Units Cap) 1 cap PO Q7D [facility] Last Admin: 04/12/17 00:14 Dose: Not Given Ferric Sodium Gluconate Complex (Ferrlecit) 125 mg IVPB [facility] Stop: 04/22/17 09:01 Last Admin: 04/13/17 15:24 Dose: 125 mg Furosemide (Lasix) 40 mg PO DAILY [facility] Last Admin: 04/14/17 10:37 Dose: 40 mg Heparin Sodium (Porcine) (Heparin) 5,000 units SC Q12H [facility] Last Admin: 04/14/17 10:27 Dose: 5,000 units Hydralazine HCl (Apresoline) 25 mg PO BID [facility] Last Admin: 04/14/17 18:40 Dose: 25 mg Hydromorphone HCl (Dilaudid) 0.5 mg IVP Q4H PRN PRN Reason: Pain, severe (8-10) Dextrose/Sodium Chloride (Dextrose 5%/0.45% Ns 1000 Ml) 1,000 mls @ 60 mls/hr IV .[id number] [facility] Last Admin: 04/12/17 13:19 Dose: 60 mls/hr Gentamicin Sulfate/Sodium Chloride (Gentamicin Iv 80 Mg Premix) 80 mg in 100 mls @ 100 mls/hr IVPB MWF [facility] Last Admin: 04/13/17 09:00 Dose: 100 mls/hr Piperacillin Sod/Tazobactam Sod (Zosyn 2.25 Gm Iv Premix) 2.25 gm in 50 mls @ 200 mls/hr IVPB Q8 [facility] Last Admin: 04/14/17 13:31 Dose: 200 mls/hr Linezolid (Zyvox 600mg/300ml D5w) 600 mg in 300 mls @ 200 mls/hr IVPB Q12H [facility] Last Admin: 04/14/17 14:22 Dose: 200 mls/hr Insulin Human Regular (Novolin R) 0 unit SC ACHS [facility] PRN Reason: Protocol Last Admin: 04/14/17 18:36 Dose: 4 unit Latanoprost (Xalatan Opht) 0.02 ml OU HS [facility] Last Admin: 04/13/17 22:55 Dose: 0.02 ml Lisinopril (Zestril) 20 mg PO DAILY [facility] Last Admin: 04/14/17 13:40 Dose: Not Given Pantoprazole Sodium (Protonix Ec Tab) 40 mg PO DAILY [facility] Last Admin: 04/14/17 10:24 Dose: 40 mg Rosuvastatin Calcium (Crestor) 10 mg PO HS [facility] Last Admin: 04/13/17 22:06 Dose: 10 mg Thiamine HCl (Vitamin B1 Inj) 100 mg IV Q8H [facility] Last Admin: 04/14/17 13:30 Dose: 100 mg Timolol Maleate (Timoptic 0.5% Ophth Soln) 1 drop OU BID [facility] Last Admin: 04/14/17 18:43 Dose: 1 drop Vitamin B Complex/Vit C/Folic Acid (Nephro-Alonzo) 1 tab PO 0800 [facility] Last Admin: 04/14/17 10:02 Dose: Not Given - Labs Labs: 04/14/17 06:36 04/14/17 06:36 PT 11.7 SECONDS (9.7-12.2) 04/11/17 18:55 INR 1.0 04/11/17 18:55 APTT 26 SECONDS (21-34) 04/11/17 18:55
[2017-04-14] MEDS: Latanoprost 2.5 ml Opht Soln OU SCH (22:38)
[2017-04-15] MEDS: Linezolid 600 mg in D5W 300 ml 600 MG/300 ML BAG IVPB SCH ×2 (00:19→13:59)
[2017-04-15] MEDS: Piperacill/Tazo 2.25gm in Dex 2.25 GM/50 ML BAG IVPB SCH ×3 (05:39→21:43)
[2017-04-15] MEDS: Thiamine 100 mg/ml Inj IV SCH ×2 (05:57→14:48)
[2017-04-15 07:47] LABS: ALB/GLOB RATIO 0.6 (1.0-2.1); BILIRUBIN,TOTAL 0.3 mg/dL (0.2-1.3); CALCIUM 6.5 mg/dl (8.6-10.4); MAGNESIUM 1.6 mg/dL (1.6-2.3); PHOSPHOROUS 2.9 mg/dL (2.5-4.5); POTASSIUM 3.6 mmol/L (3.6-5.2); TOTAL PROTEIN 4.5 g/dL (6.3-8.3)
[2017-04-15 07:48] LABS: BASO % 0.3 % (0.0-2.0); EOS # 0.1 K/uL (0.0-0.7); EOS % 0.6 % (0.0-4.0); HEMATOCRIT 24.3 % (34.0-47.0); LYMPH # 1.1 K/uL (1.0-4.3); LYMPH % 7.2 % (20.0-40.0); MEAN CORPUSCULAR HEMOGLOBIN 29.5 pg (27.0-31.0); MONO # 0.8 K/uL (0.0-0.8); MONO % 5.2 % (0.0-10.0); PLATELET COUNT 286 K/uL (130-400); RED CELL DISTRIBUTION WIDTH 18.5 % (11.5-14.5); WHITE BLOOD COUNT 15.2 K/uL (4.8-10.8)
[2017-04-15 07:50] LABS: MEAN CELL VOLUME 95.1 fL (81.0-99.0)
[2017-04-15] MEDS: Multivitamin Vitamin B Complex (Nephro-Vite) Tab PO SCH (08:19)
[2017-04-15] MEDS: Gentamicin 80 mg in 0.9% NS 80 MG/100 ML BAG IVPB SCH (08:20)
[2017-04-15 09:10] LABS: EOSINOPHIL 1 % (0-4); NEUTROPHIL 85 % (50-75); TOTAL CELLS COUNTED 100
[2017-04-15 09:12] LABS: LARGE PLATELETS PRESENT
--- NOTE | 2017-04-15 09:47 | CP.PCM.PN ---
Subjective - Date & Time of Evaluation Date of Evaluation: 04/15/17 Time of Evaluation: 07:10 - Subjective Subjective: Medicine Note (PGY-1)---> Dr. Myrick's service Patient was seen and examined at bedside. Patient is currently in isolation due to vancomycin resistance positive culture. Patient is mildly agitated and not well-oriented. Objective - Vital Signs/Intake and Output Vital Signs (last 24 hours): Temp Pulse Resp BP Pulse Ox 98.1 F 81 18 137/47 L 96 04/15/17 09:30 04/15/17 09:30 04/15/17 09:30 04/15/17 09:30 04/15/17 09:30 Intake and Output: 04/15/17 04/15/17 06:59 18:59 Intake Total 400 Output Total 250 Balance 150 - Medications Medications: Current Medications Acetaminophen (Tylenol 325mg Tab) 650 mg PO Q6 PRN PRN Reason: Pain, moderate (4-7) Brimonidine Tartrate (Alphagan 0.2% Opht) 1 ml OU TID [facility] Last Admin: 04/14/17 18:40 Dose: 1 drop Epoetin Maxwell (Procrit) 10,000 unit IV [facility] [place] Stop: 04/22/17 09:01 Last Admin: 04/13/17 15:25 Dose: 10,000 unit Ergocalciferol (Drisdol 50,000 Intl Units Cap) 1 cap PO Q7D [facility] Last Admin: 04/12/17 00:14 Dose: Not Given Ferric Sodium Gluconate Complex (Ferrlecit) 125 mg IVPB [facility] [place] Stop: 04/22/17 09:01 Last Admin: 04/13/17 15:24 Dose: 125 mg Furosemide (Lasix) 40 mg PO DAILY [facility] Last Admin: 04/14/17 10:37 Dose: 40 mg Heparin Sodium (Porcine) (Heparin) 5,000 units SC Q12H [facility] Last Admin: 04/14/17 22:38 Dose: 5,000 units Hydralazine HCl (Apresoline) 25 mg PO BID [facility] Last Admin: 04/14/17 18:40 Dose: 25 mg Hydromorphone HCl (Dilaudid) 0.5 mg IVP Q4H PRN PRN Reason: Pain, severe (8-10) Dextrose/Sodium Chloride (Dextrose 5%/0.45% Ns 1000 Ml) 1,000 mls @ 60 mls/hr IV .[id number] [facility] Last Admin: 04/12/17 13:19 Dose: 60 mls/hr Gentamicin Sulfate/Sodium Chloride (Gentamicin Iv 80 Mg Premix) 80 mg in 100 mls @ 100 mls/hr IVPB MWF [facility] Last Admin: 04/15/17 08:20 Dose: 100 mls/hr Piperacillin Sod/Tazobactam Sod (Zosyn 2.25 Gm Iv Premix) 2.25 gm in 50 mls @ 200 mls/hr IVPB Q8 [facility] Last Admin: 04/15/17 05:39 Dose: 200 mls/hr Linezolid (Zyvox 600mg/300ml D5w) 600 mg in 300 mls @ 200 mls/hr IVPB Q12H [facility] Last Admin: 04/15/17 00:19 Dose: 200 mls/hr Insulin Human Regular (Novolin R) 0 unit SC ACHS [facility] PRN Reason: Protocol Last Admin: 04/14/17 22:45 Dose: Not Given Latanoprost (Xalatan Opht) 0.02 ml OU HS [facility] Last Admin: 04/14/17 22:38 Dose: 0.02 ml Lisinopril (Zestril) 20 mg PO DAILY [facility] Last Admin: 04/14/17 13:40 Dose: Not Given Pantoprazole Sodium (Protonix Ec Tab) 40 mg PO DAILY [facility] Last Admin: 04/14/17 10:24 Dose: 40 mg Rosuvastatin Calcium (Crestor) 10 mg PO HS [facility] Last Admin: 04/14/17 22:38 Dose: 10 mg Thiamine HCl (Vitamin B1 Inj) 100 mg IV Q8H [facility] Last Admin: 04/15/17 05:57 Dose: 100 mg Timolol Maleate (Timoptic 0.5% Oph Soln) 1 drop OU BID [facility] Last Admin: 04/14/17 18:43 Dose: 1 drop Vitamin B Complex/Vit C/Folic Acid (Nephro-Kevin) 1 tab PO 0800 [facility] Last Admin: 04/15/17 08:19 Dose: 1 tab - Labs Labs: 04/15/17 07:19 04/15/17 07:19 PT 11.7 SECONDS (9.7-12.2) 04/11/17 18:55 INR 1.0 04/11/17 18:55 APTT 26 SECONDS (21-34) 04/11/17 18:55 - Constitutional Appears: Non-toxic, No Acute Distress - Head Exam Head Exam: ATRAUMATIC - Eye Exam Eye Exam: EOMI - Respiratory Exam Respiratory Exam: NORMAL BREATHING PATTERN Additional comments: clear to auscultation anteriorly Limited exam due to patient's habitus - Cardiovascular Exam Cardiovascular Exam: REGULAR RHYTHM, +S1, +S2 - GI/Abdominal Exam GI & Abdominal Exam: Soft, Normal Bowel Sounds - Extremities Exam Extremities Exam: Pedal Edema Additional comments: Left BKA with drainage Right leg +1 pitting edema - Neurological Exam Neurological Exam: Awake. absent: Oriented x3 - Skin Skin Exam: Pallor Additional comments: Will be transfuse 2 units od P Assessment and Plan (1) Sepsis Assessment & Plan: Infectious Disease, Dr. Wellington on board----> help appreciated Leukocytosis resolving, no bandemia On admission: WBC: 21.3, HR: 107 Sacral culture (04/11/17) : Gram negative kendy, proteus mirabilis Blood culture (04/11/17): Gram positive cocci, Staphyl aureus and coag-negative staph S/P Left BKA (04/11/17): Gram negative kendy, proteus mirabilis, klebsiella pneumonia and vancomycin resistance E.faecium Medications: * Gentamicin 80mg IVPB HD * Zosyn 2.25gm IVPB Q8H * Vancomycin 1gm IVPB on HD---> Discontinued * Linezolid 600mg IVPB Q12H ---> Started on 04/14 Status: Acute (2) End stage renal disease on dialysis Assessment & Plan: Marketing Support Specialist, Dr. Ambrose---> Help appreciated * Management as per recommendation Management/Medications: On HD (TTS) ---> MWF ( for this admission) * Via Left Arm shunt Ergocalciferol 1 cap PO Q7D Procrit 10,000 unit IV MWF Ferric sodium gluconate 125 mg MWF Nephrovite Status: Chronic (3) Sacral decubitus ulcer, stage III Assessment & Plan: General Surgery, Dr. Broussard consulted * No surgical intervention at this time ID, Dr. Wellington consulted Lab: Gram Negative kendy, proteus mirabilis Medication: * Gentamicin 80mg IVPB HD * Zosyn 2.25gm IVPB Q8H * Linezolid 600mg IVPB Q12H (started 04/14/17) Status: Acute (4) S/P BKA (below knee amputation) Assessment & Plan: General Surgery, Dr. Broussard---> Help appreciated ID, Dr. Wellington----> Help appreciated Lab: Wound culture: Gram negative kendy; proteus mirabilis, klebsiella pneumonia and vancomycin resistance E.faecium Medications: * Gentamicin 80mg IVPB HD * Zosyn 2.25gm IVPB Q8H * Linezolid 600mg IVPB Q12H Status: Acute (5) Anemia, chronic disease Assessment & Plan: H/H unstable * transfused 2 units of PRBC on HD * Monitor H/H with am labs Medication: * Procrit 10,000 unit IV TTS ( on HD) * Vitamin B1 100mg IV Q8H * Nephro kevin Status: Chronic (6) Glaucoma Assessment & Plan: Medications: * Timolol 0.5% OU BID * Latanoprost 0.02 ml OU HS * Brimonidine 1ml OU TID Status: Acute (7) DM2 (diabetes mellitus, type 2) Assessment & Plan: Management/Medication: * Accuchecks * ISS medium dose * Hypoglycemia protocol Status: Chronic (8) History of CHF (congestive heart failure) Assessment & Plan: Medication: * Lasix 40mg PO daily Status: Acute (9) Hypertension Assessment & Plan: Medication: * Norvasc 5mg PO daily (Held due to peripheral edema) * Hydralazine 25mg PO BID * Lisinopril 20mg PO daily Status: Chronic (10) History of hyperlipidemia Assessment & Plan: Crestor 10mg PO HS Status: Acute (11) Prophylactic measure Assessment & Plan: GI: Protonix 40mg PO daily DVT: Heparin 5,000 units SC Q12H PT and OT Status: Acute
--- NOTE | 2017-04-15 11:28 | CP.PCM.PN ---
Subjective - Date & Time of Evaluation Date of Evaluation: 04/15/17 Time of Evaluation: 15:00 - Subjective Subjective: General Surgery Note for Dr. Broussard Patient seen and examined at bedside. No acute event overnight. Patient moans and groans intermittently. She is responsive to verbal and tactile stimuli. Objective - Vital Signs/Intake and Output Vital Signs (last 24 hours): Temp Pulse Resp BP Pulse Ox 98.5 F 80 16 154/57 H 96 04/15/17 11:15 04/15/17 11:15 04/15/17 11:15 04/15/17 11:15 04/15/17 09:30 Intake and Output: 04/15/17 04/15/17 06:59 18:59 Intake Total 400 350 Output Total 250 Balance 150 350 - Medications Medications: Current Medications Acetaminophen (Tylenol 325mg Tab) 650 mg PO Q6 PRN PRN Reason: Pain, moderate (4-7) Brimonidine Tartrate (Alphagan 0.2% Opht) 1 ml OU TID [facility] Last Admin: 04/14/17 18:40 Dose: 1 drop Epoetin Maxwell (Procrit) 10,000 unit IV [facility] Stop: 04/22/17 09:01 Last Admin: 04/13/17 15:25 Dose: 10,000 unit Ergocalciferol (Drisdol 50,000 Intl Units Cap) 1 cap PO Q7D [facility] Last Admin: 04/12/17 00:14 Dose: Not Given Ferric Sodium Gluconate Complex (Ferrlecit) 125 mg IVPB [facility] Stop: 04/22/17 09:01 Last Admin: 04/13/17 15:24 Dose: 125 mg Furosemide (Lasix) 40 mg PO DAILY [facility] Last Admin: 04/14/17 10:37 Dose: 40 mg Heparin Sodium (Porcine) (Heparin) 5,000 units SC Q12H [facility] Last Admin: 04/14/17 22:38 Dose: 5,000 units Hydralazine HCl (Apresoline) 25 mg PO BID [facility] Last Admin: 04/14/17 18:40 Dose: 25 mg Hydromorphone HCl (Dilaudid) 0.5 mg IVP Q4H PRN PRN Reason: Pain, severe (8-10) Dextrose/Sodium Chloride (Dextrose 5%/0.45% Ns 1000 Ml) 1,000 mls @ 60 mls/hr IV .[id number] [facility] Last Admin: 04/12/17 13:19 Dose: 60 mls/hr Gentamicin Sulfate/Sodium Chloride (Gentamicin Iv 80 Mg Premix) 80 mg in 100 mls @ 100 mls/hr IVPB MWF [facility] Last Admin: 04/15/17 08:20 Dose: 100 mls/hr Piperacillin Sod/Tazobactam Sod (Zosyn 2.25 Gm Iv Premix) 2.25 gm in 50 mls @ 200 mls/hr IVPB Q8 [facility] Last Admin: 04/15/17 05:39 Dose: 200 mls/hr Linezolid (Zyvox 600mg/300ml D5w) 600 mg in 300 mls @ 200 mls/hr IVPB Q12H [facility] Last Admin: 04/15/17 00:19 Dose: 200 mls/hr Insulin Human Regular (Novolin R) 0 unit SC ACHS [facility] PRN Reason: Protocol Last Admin: 04/14/17 22:45 Dose: Not Given Latanoprost (Xalatan Opht) 0.02 ml OU HS [facility] Last Admin: 04/14/17 22:38 Dose: 0.02 ml Lisinopril (Zestril) 20 mg PO DAILY [facility] Last Admin: 04/14/17 13:40 Dose: Not Given Pantoprazole Sodium (Protonix Ec Tab) 40 mg PO DAILY [facility] Last Admin: 04/14/17 10:24 Dose: 40 mg Rosuvastatin Calcium (Crestor) 10 mg PO HS [facility] Last Admin: 04/14/17 22:38 Dose: 10 mg Thiamine HCl (Vitamin B1 Inj) 100 mg IV Q8H [facility] Last Admin: 04/15/17 05:57 Dose: 100 mg Timolol Maleate (Timoptic 0.5% Oph Soln) 1 drop OU BID [facility] Last Admin: 04/14/17 18:43 Dose: 1 drop Vitamin B Complex/Vit C/Folic Acid (Nephro-Alonzo) 1 tab PO 0800 [facility] Last Admin: 04/15/17 08:19 Dose: 1 tab - Labs Labs: 04/15/17 07:19 04/15/17 07:19 PT 11.7 SECONDS (9.7-12.2) 04/11/17 18:55 INR 1.0 04/11/17 18:55 APTT 26 SECONDS (21-34) 04/11/17 18:55 - Constitutional Appears: No Acute Distress, Chronically Ill - Head Exam Head Exam: ATRAUMATIC, NORMOCEPHALIC - Eye Exam Eye Exam: Normal appearance - ENT Exam ENT Exam: Mucous Membranes Moist - Respiratory Exam Respiratory Exam: NORMAL BREATHING PATTERN - Cardiovascular Exam Cardiovascular Exam: REGULAR RHYTHM - GI/Abdominal Exam GI & Abdominal Exam: Soft. absent: Tenderness - Extremities Exam Extremities Exam: Pedal Edema Additional comments: L bka dressing clean dry intact - Back Exam Additional comments: stage III sacral ulcer - Neurological Exam Neurological Exam: Alert, Altered - Psychiatric Exam Psychiatric exam: Flat Affect - Skin Skin Exam: Dry, Warm Assessment and Plan - Assessment and Plan (Free Text) Plan: 71 F with sacrall ulcer and s/p L BKA -Dressing changes PRN -Wound care consult -May apply santyl to L BKA wound BID -No surgical intervention at this time -Discussed with Dr. Bobo Sotelo PGY1
[2017-04-15] MEDS: Epoetin Alfa 10,000 unit/ml Dialysis IV SCH (11:41)
[2017-04-15] MEDS: Ferric Sodium Gluconat Complex 62.5 mg/5 ml Vial IVPB SCH (11:43)
[2017-04-15] MEDS: Brimonidine 0.2% Opth Sol (5ml) OU SCH ×2 (13:57→18:55)
[2017-04-15] MEDS: (Novolin R) Insulin Human Regular 100 units/ml vial SC SCH ×2 (13:58→17:00)
[2017-04-15] MEDS: Pantoprazole 40 mg EC Tab PO SCH (13:59)
--- NOTE | 2017-04-15 15:48 | CP.PCM.PN ---
Subjective - Date & Time of Evaluation Date of Evaluation: 04/15/17 Time of Evaluation: 08:00 - Subjective Subjective: EVENTS NOTED IV RX IN PROGRESS Objective - Vital Signs/Intake and Output Vital Signs (last 24 hours): Temp Pulse Resp BP Pulse Ox 98.6 F 84 18 140/58 L 100 04/15/17 12:45 04/15/17 12:45 04/15/17 12:45 04/15/17 12:45 04/15/17 12:45 Intake and Output: 04/15/17 04/15/17 06:59 18:59 Intake Total 400 700 Output Total 250 Balance 150 700 - Medications Medications: Current Medications Acetaminophen (Tylenol 325mg Tab) 650 mg PO Q6 PRN PRN Reason: Pain, moderate (4-7) Brimonidine Tartrate (Alphagan 0.2% Opht) 1 ml OU TID [facility] Last Admin: 04/15/17 13:57 Dose: Not Given Epoetin Maxwell (Procrit) 10,000 unit IV [facility] [place] Stop: 04/22/17 09:01 Last Admin: 04/15/17 11:41 Dose: 10,000 unit Ergocalciferol (Drisdol 50,000 Intl Units Cap) 1 cap PO Q7D [facility] Last Admin: 04/12/17 00:14 Dose: Not Given Ferric Sodium Gluconate Complex (Ferrlecit) 125 mg IVPB [facility] [place] Stop: 04/22/17 09:01 Last Admin: 04/15/17 11:43 Dose: 125 mg Furosemide (Lasix) 40 mg PO DAILY [facility] Last Admin: 04/15/17 13:57 Dose: Not Given Heparin Sodium (Porcine) (Heparin) 5,000 units SC Q12H [facility] Last Admin: 04/15/17 13:57 Dose: Not Given Hydralazine HCl (Apresoline) 25 mg PO BID [facility] Last Admin: 04/15/17 13:58 Dose: Not Given Hydromorphone HCl (Dilaudid) 0.5 mg IVP Q4H PRN PRN Reason: Pain, severe (8-10) Dextrose/Sodium Chloride (Dextrose 5%/0.45% Ns 1000 Ml) 1,000 mls @ 60 mls/hr IV .[id number] [facility] Last Admin: 04/12/17 13:19 Dose: 60 mls/hr Gentamicin Sulfate/Sodium Chloride (Gentamicin Iv 80 Mg Premix) 80 mg in 100 mls @ 100 mls/hr IVPB MWF [facility] Last Admin: 04/15/17 08:20 Dose: 100 mls/hr Piperacillin Sod/Tazobactam Sod (Zosyn 2.25 Gm Iv Premix) 2.25 gm in 50 mls @ 200 mls/hr IVPB Q8 [facility] Last Admin: 04/15/17 14:48 Dose: Not Given Linezolid (Zyvox 600mg/300ml D5w) 600 mg in 300 mls @ 200 mls/hr IVPB Q12H [facility] Last Admin: 04/15/17 13:59 Dose: Not Given Insulin Human Regular (Novolin R) 0 unit SC ACHS [facility] PRN Reason: Protocol Last Admin: 04/15/17 13:58 Dose: Not Given Latanoprost (Xalatan Opht) 0.02 ml OU HS [facility] Last Admin: 04/14/17 22:38 Dose: 0.02 ml Lisinopril (Zestril) 20 mg PO DAILY [facility] Last Admin: 04/15/17 13:59 Dose: Not Given Pantoprazole Sodium (Protonix Ec Tab) 40 mg PO DAILY [facility] Last Admin: 04/15/17 13:59 Dose: Not Given Rosuvastatin Calcium (Crestor) 10 mg PO HS [facility] Last Admin: 04/14/17 22:38 Dose: 10 mg Thiamine HCl (Vitamin B1 Inj) 100 mg IV Q8H [facility] Last Admin: 04/15/17 14:48 Dose: Not Given Timolol Maleate (Timoptic 0.5% [facility]) 1 drop OU BID [facility] Last Admin: 04/15/17 13:59 Dose: Not Given Vitamin B Complex/Vit C/Folic Acid (Nephro-Alonzo) 1 tab PO 0800 [facility] Last Admin: 04/15/17 08:19 Dose: 1 tab - Labs Labs: 04/15/17 07:19 04/15/17 07:19 PT 11.7 SECONDS (9.7-12.2) 04/11/17 18:55 INR 1.0 04/11/17 18:55 APTT 26 SECONDS (21-34) 04/11/17 18:55 - Constitutional Appears: Non-toxic, Confused, Cachectic, Chronically Ill - Head Exam Head Exam: NORMOCEPHALIC - Eye Exam Eye Exam: PERRL. absent: Scleral icterus - Neck Exam Neck Exam: absent: Lymphadenopathy - Respiratory Exam Respiratory Exam: Decreased Breath Sounds - Cardiovascular Exam Cardiovascular Exam: REGULAR RHYTHM - GI/Abdominal Exam GI & Abdominal Exam: Distended, Soft - Rectal Exam Rectal Exam: Deferred Assessment and Plan (1) Elevated WBC count Status: Acute (2) S/P BKA (below knee amputation) Status: Acute (3) Sacral decubitus ulcer, stage III Status: Acute (4) Sepsis Status: Acute - Assessment and Plan (Free Text) Assessment: IV RX ADJUSTED
[2017-04-15] MEDS: Collagenase 250 Units/gm Ointment(30 gm) TOP SCH (18:55)
[2017-04-15] MEDS: Latanoprost 2.5 ml Opht Soln OU SCH (21:45)
--- NOTE | 2017-04-16 00:35 | CP.PCM.PN ---
Subjective - Date & Time of Evaluation Date of Evaluation: 04/16/17 Time of Evaluation: 06:30 - Subjective Subjective: Medicine Note (PGY-1)- Dr. Myrick's Service Patient was seen and examined at bedside. Patient is currently in isolation due to vancomycin resistance positive culture. Patient is not well-oriented. Patient has decreased appetite. Objective - Vital Signs/Intake and Output Vital Signs (last 24 hours): Temp Pulse Resp BP Pulse Ox 98.6 F 84 18 140/58 L 100 04/15/17 12:45 04/15/17 12:45 04/15/17 12:45 04/15/17 12:45 04/15/17 12:45 Intake and Output: 04/15/17 04/16/17 18:59 06:59 Intake Total 700 Balance 700 - Medications Medications: Current Medications Acetaminophen (Tylenol 325mg Tab) 650 mg PO Q6 PRN PRN Reason: Pain, moderate (4-7) Brimonidine Tartrate (Alphagan 0.2% Opht) 1 ml OU TID [facility] Last Admin: 04/15/17 18:55 Dose: 1 drop Collagenase (Santyl) 1 gm TOP BID [facility] Last Admin: 04/15/17 18:55 Dose: 1 cre Epoetin Maxwell (Procrit) 10,000 unit IV [facility] [place] Stop: 04/22/17 09:01 Last Admin: 04/15/17 11:41 Dose: 10,000 unit Ergocalciferol (Drisdol 50,000 Intl Units Cap) 1 cap PO Q7D [facility] Last Admin: 04/12/17 00:14 Dose: Not Given Ferric Sodium Gluconate Complex (Ferrlecit) 125 mg IVPB [facility] [place] Stop: 04/22/17 09:01 Last Admin: 04/15/17 11:43 Dose: 125 mg Furosemide (Lasix) 40 mg PO DAILY [facility] Last Admin: 04/15/17 13:57 Dose: Not Given Heparin Sodium (Porcine) (Heparin) 5,000 units SC Q12H [facility] Last Admin: 04/15/17 21:42 Dose: 5,000 units Hydralazine HCl (Apresoline) 25 mg PO BID [facility] Last Admin: 04/15/17 18:55 Dose: 25 mg Hydromorphone HCl (Dilaudid) 0.5 mg IVP Q4H PRN PRN Reason: Pain, severe (8-10) Dextrose/Sodium Chloride (Dextrose 5%/0.45% Ns 1000 Ml) 1,000 mls @ 60 mls/hr IV .[id number] [facility] Last Admin: 04/12/17 13:19 Dose: 60 mls/hr Gentamicin Sulfate/Sodium Chloride (Gentamicin Iv 80 Mg Premix) 80 mg in 100 mls @ 100 mls/hr IVPB MWF [facility] Last Admin: 04/15/17 08:20 Dose: 100 mls/hr Piperacillin Sod/Tazobactam Sod (Zosyn 2.25 Gm Iv Premix) 2.25 gm in 50 mls @ 200 mls/hr IVPB Q8 [facility] Last Admin: 04/15/17 21:43 Dose: 200 mls/hr Linezolid (Zyvox 600mg/300ml D5w) 600 mg in 300 mls @ 200 mls/hr IVPB Q12H [facility] Last Admin: 04/15/17 13:59 Dose: Not Given Insulin Human Regular (Novolin R) 0 unit SC ACHS [facility] PRN Reason: Protocol Last Admin: 04/15/17 17:00 Dose: Not Given Latanoprost (Xalatan Opht) 0.02 ml OU HS [facility] Last Admin: 04/15/17 21:45 Dose: 0.02 ml Lisinopril (Zestril) 20 mg PO DAILY [facility] Last Admin: 04/15/17 13:59 Dose: Not Given Pantoprazole Sodium (Protonix Ec Tab) 40 mg PO DAILY [facility] Last Admin: 04/15/17 13:59 Dose: Not Given Rosuvastatin Calcium (Crestor) 10 mg PO HS [facility] Last Admin: 04/15/17 22:11 Dose: 10 mg Thiamine HCl (Vitamin B1 Inj) 100 mg IV Q8H [facility] Last Admin: 04/15/17 14:48 Dose: Not Given Timolol Maleate (Timoptic 0.5% Oph Soln) 1 drop OU BID [facility] Last Admin: 04/15/17 18:55 Dose: 1 drop Vitamin B Complex/Vit C/Folic Acid (Nephro-Kevin) 1 tab PO 0800 [facility] Last Admin: 04/15/17 08:19 Dose: 1 tab - Labs Labs: 04/15/17 07:19 04/15/17 07:19 PT 11.7 SECONDS (9.7-12.2) 04/11/17 18:55 INR 1.0 04/11/17 18:55 APTT 26 SECONDS (21-34) 04/11/17 18:55 - Constitutional Appears: No Acute Distress, Chronically Ill - Head Exam Head Exam: ATRAUMATIC, NORMAL INSPECTION, NORMOCEPHALIC - Eye Exam Eye Exam: EOMI, Normal appearance - Respiratory Exam Respiratory Exam: Clear to Ausculation Bilateral, NORMAL BREATHING PATTERN - Cardiovascular Exam Cardiovascular Exam: REGULAR RHYTHM, +S1, +S2 - GI/Abdominal Exam GI & Abdominal Exam: Soft, Normal Bowel Sounds. absent: Tenderness - Extremities Exam Extremities Exam: Pedal Edema Additional comments: Left BKA with drainage - Neurological Exam Neurological Exam: Alert, Awake. absent: Oriented x3 - Psychiatric Exam Psychiatric exam: Anxious - Skin Skin Exam: Pallor, Warm Assessment and Plan - Assessment and Plan (Free Text) Assessment: (1) Sepsis Assessment & Plan: Infectious Disease, Dr. Wellington on board----> help appreciated Leukocytosis resolving, no bandemia On admission: WBC: 21.3, HR: 107 Sacral culture (04/11/17) : Gram negative kendy, proteus mirabilis Blood culture (04/11/17): Gram positive cocci, Staphyl aureus and coag-negative staph S/P Left BKA (04/11/17): Gram negative kendy, proteus mirabilis, klebsiella pneumonia and vancomycin resistance E.faecium Medications: * Gentamicin 80mg IVPB HD * Zosyn 2.25gm IVPB Q8H * Vancomycin 1gm IVPB on HD---> Discontinued * Linezolid 600mg IVPB Q12H ---> Started on 04/14 Status: Acute (2) End stage renal disease on dialysis Assessment & Plan: Combination Presser, Dr. Ambrose---> Help appreciated * Management as per recommendation Management/Medications: On HD (TTS) ---> MWF ( for this admission) * Via Left Arm shunt Ergocalciferol 1 cap PO Q7D Procrit 10,000 unit IV MWF Ferric sodium gluconate 125 mg MWF Nephrovite Status: Chronic (3) Sacral decubitus ulcer, stage III Assessment & Plan: General Surgery, Dr. Broussard consulted * No surgical intervention at this time ID, Dr. Wellington consulted Lab: Gram Negative kendy, proteus mirabilis Medication: * Gentamicin 80mg IVPB HD * Zosyn 2.25gm IVPB Q8H * Linezolid 600mg IVPB Q12H (started 04/14/17) Status: Acute (4) S/P BKA (below knee amputation) Assessment & Plan: General Surgery, Dr. Broussard---> Help appreciated Dr. Amish CARPIO----> Help appreciated Lab: Wound culture: Gram negative kendy; proteus mirabilis, klebsiella pneumonia and vancomycin resistance E.faecium Medications: * Gentamicin 80mg IVPB HD * Zosyn 2.25gm IVPB Q8H * Linezolid 600mg IVPB Q12H Status: Acute (5) Anemia, chronic disease Assessment & Plan: H/H unstable * transfused 2 units of PRBC on HD * Monitor H/H with am labs Medication: * Procrit 10,000 unit IV TTS ( on HD) * Vitamin B1 100mg IV Q8H * Nephro kevin Status: Chronic (6) Glaucoma Assessment & Plan: Medications: * Timolol 0.5% OU BID * Latanoprost 0.02 ml OU HS * Brimonidine 1ml OU TID Status: Acute (7) DM2 (diabetes mellitus, type 2) Assessment & Plan: Management/Medication: * Accuchecks * ISS medium dose * Hypoglycemia protocol Status: Chronic (8) History of CHF (congestive heart failure) Assessment & Plan: Medication: * Lasix 40mg PO daily Status: Acute (9) Hypertension Assessment & Plan: Medication: * Norvasc 5mg PO daily (Held due to peripheral edema) * Hydralazine 25mg PO BID * Lisinopril 20mg PO daily Status: Chronic (10) History of hyperlipidemia Assessment & Plan: Crestor 10mg PO HS Status: Acute (11) Prophylactic measure Assessment & Plan: GI: Protonix 40mg PO daily DVT: Heparin 5,000 units SC Q12H PT and OT Status: Acute
[2017-04-16] MEDS: Linezolid 600 mg in D5W 300 ml 600 MG/300 ML BAG IVPB SCH ×3 (00:36→23:48)
[2017-04-16] MEDS: Piperacill/Tazo 2.25gm in Dex 2.25 GM/50 ML BAG IVPB SCH ×3 (06:30→21:34)
--- NOTE | 2017-04-16 07:23 | CP.PCM.PN ---
Subjective - Date & Time of Evaluation Date of Evaluation: 04/16/17 Time of Evaluation: 07:05 - Subjective Subjective: General Surgery Note for Dr. Broussard Patient seen and examined at bedside. No acute event overnight. Patient moans and groans intermittently. She is responsive to verbal and tactile stimuli. PICC line in right now with DVT. Objective - Vital Signs/Intake and Output Vital Signs (last 24 hours): Temp Pulse Resp BP Pulse Ox 98.7 F 93 H 20 106/50 L 96 04/16/17 00:20 04/16/17 00:20 04/16/17 00:20 04/16/17 00:20 04/16/17 00:20 Intake and Output: 04/16/17 04/16/17 06:59 18:59 Intake Total 590 Output Total 150 Balance 440 - Medications Medications: Current Medications Acetaminophen (Tylenol 325mg Tab) 650 mg PO Q6 PRN PRN Reason: Pain, moderate (4-7) Brimonidine Tartrate (Alphagan 0.2% Opht) 1 ml OU TID [facility] Last Admin: 04/15/17 18:55 Dose: 1 drop Collagenase (Santyl) 1 gm TOP BID [facility] Last Admin: 04/15/17 18:55 Dose: 1 cre Epoetin Maxwell (Procrit) 10,000 unit IV [facility] [place] Stop: 04/22/17 09:01 Last Admin: 04/15/17 11:41 Dose: 10,000 unit Ergocalciferol (Drisdol 50,000 Intl Units Cap) 1 cap PO Q7D [facility] Last Admin: 04/12/17 00:14 Dose: Not Given Ferric Sodium Gluconate Complex (Ferrlecit) 125 mg IVPB [facility] [place] Stop: 04/22/17 09:01 Last Admin: 04/15/17 11:43 Dose: 125 mg Furosemide (Lasix) 40 mg PO DAILY [facility] Last Admin: 04/15/17 13:57 Dose: Not Given Heparin Sodium (Porcine) (Heparin) 5,000 units SC Q12H [facility] Last Admin: 04/15/17 21:42 Dose: 5,000 units Hydralazine HCl (Apresoline) 25 mg PO BID [facility] Last Admin: 04/15/17 18:55 Dose: 25 mg Hydromorphone HCl (Dilaudid) 0.5 mg IVP Q4H PRN PRN Reason: Pain, severe (8-10) Dextrose/Sodium Chloride (Dextrose 5%/0.45% Ns 1000 Ml) 1,000 mls @ 60 mls/hr IV .[id number] [facility] Last Admin: 04/12/17 13:19 Dose: 60 mls/hr Gentamicin Sulfate/Sodium Chloride (Gentamicin Iv 80 Mg Premix) 80 mg in 100 mls @ 100 mls/hr IVPB MWF [facility] Last Admin: 04/15/17 08:20 Dose: 100 mls/hr Piperacillin Sod/Tazobactam Sod (Zosyn 2.25 Gm Iv Premix) 2.25 gm in 50 mls @ 200 mls/hr IVPB Q8 [facility] Last Admin: 04/16/17 06:30 Dose: 200 mls/hr Linezolid (Zyvox 600mg/300ml D5w) 600 mg in 300 mls @ 200 mls/hr IVPB Q12H [facility] Last Admin: 04/16/17 00:36 Dose: 200 mls/hr Insulin Human Regular (Novolin R) 0 unit SC ACHS [facility] PRN Reason: Protocol Last Admin: 04/15/17 17:00 Dose: Not Given Latanoprost (Xalatan Opht) 0.02 ml OU HS [facility] Last Admin: 04/15/17 21:45 Dose: 0.02 ml Lisinopril (Zestril) 20 mg PO DAILY [facility] Last Admin: 04/15/17 13:59 Dose: Not Given Pantoprazole Sodium (Protonix Ec Tab) 40 mg PO DAILY [facility] Last Admin: 04/15/17 13:59 Dose: Not Given Rosuvastatin Calcium (Crestor) 10 mg PO HS [facility] Last Admin: 04/15/17 22:11 Dose: 10 mg Thiamine HCl (Vitamin B1 Inj) 100 mg IV Q8H [facility] Last Admin: 04/15/17 14:48 Dose: Not Given Timolol Maleate (Timoptic 0.5% Oph Soln) 1 drop OU BID [facility] Last Admin: 04/15/17 18:55 Dose: 1 drop Vitamin B Complex/Vit C/Folic Acid (Nephro-Alonzo) 1 tab PO 0800 [facility] Last Admin: 04/15/17 08:19 Dose: 1 tab - Labs Labs: 04/15/17 07:19 04/15/17 07:19 PT 11.7 SECONDS (9.7-12.2) 04/11/17 18:55 INR 1.0 04/11/17 18:55 APTT 26 SECONDS (21-34) 04/11/17 18:55 - Constitutional Appears: No Acute Distress, Chronically Ill - Head Exam Head Exam: ATRAUMATIC, NORMOCEPHALIC - Eye Exam Eye Exam: Normal appearance - ENT Exam ENT Exam: Mucous Membranes Moist - Respiratory Exam Respiratory Exam: NORMAL BREATHING PATTERN - Cardiovascular Exam Cardiovascular Exam: REGULAR RHYTHM - GI/Abdominal Exam GI & Abdominal Exam: Soft. absent: Tenderness - Extremities Exam Additional comments: L bka dressing clean dry and intact - Back Exam Additional comments: stage III sacral ulcer - Neurological Exam Neurological Exam: Alert, Awake - Psychiatric Exam Psychiatric exam: Flat Affect - Skin Skin Exam: Dry, Warm Assessment and Plan - Assessment and Plan (Free Text) Plan: 71 F with sacral ulcer and s/p L BKA now with RUE DVT -Subq Heparin -Dressing changes Bid with santyl -Wound care -No surgical intervention at this time -Discussed with Dr. Bobo Sotelo PGY1
[2017-04-16] MEDS: (Novolin R) Insulin Human Regular 100 units/ml vial SC SCH ×5 (07:30→21:33)
[2017-04-16] MEDS: Thiamine 100 mg/ml Inj IV SCH ×3 (07:48→21:31)
[2017-04-16 10:41] LABS: ABG ALLEN TEST POS; ARTERIAL BLOOD HGB O2 SAT 94.9 % (95.0-98.0); CARBOXYHEMOGLOBIN 2.3 % (0.5-1.5); DRAW SITE RRA; HHB 1.2 % (0.0-5.0); METHEMOGLOBIN 1.6 % (0.0-3.0)
[2017-04-16] MEDS: Brimonidine 0.2% Opth Sol (5ml) OU SCH ×3 (10:45→18:20)
[2017-04-16] MEDS ORDERED: Naloxone 0.4 mg/ml Inj (Adult) IVP ONE (11:00)
--- NOTE | 2017-04-16 11:27 | CP.PCM.CON ---
History of Present Illness - History of Present Illness History of Present Illness: 71 year old female with PMHx ESRD (dialysis TTS), CHF, HTN, DM2, PVD, AMS, depression, anemia of chronic disease, chronic low back pain, glaucoma, and days s/p Left BKA admitted for evaluation of altered mental status likely 2/2 to sepsis. Patient eas given 4 mg of morphine in er. ICu was consulted after patient received 2 units of blood and found to be metabolic acidosis. Patient's baseline mental status unknown, except as nursing notes "she was not like this" Patient was given sternal rub and patient was not responsive, however given narcan 0.4 mg and patient spontaneously started moving left left arm, opened eyes. Limited history 2nd mental status change. at bedside not able to provide any history Review of Systems - Review of Systems Systems not reviewed;Unavailable: Altered Mental Status - Constitutional Constitutional: Other (limited ROS) - Cardiovascular Cardiovascular: Other Additional comments: limited - Respiratory Respiratory: Other (tachypnea 2nd acidosis) - Psychiatric Psychiatric: Other (unable to assess) Past Patient History - Infectious Disease Hx of Infectious Diseases: None - Tetanus Immunizations Tetanus Immunization: Unknown - Past Medical History & Family History Past Medical History?: Yes - Past Social History Smoking Status: Never Smoked - CARDIAC Hx Hypercholesterolemia: Yes - PULMONARY Hx Respiratory Disorders: No - NEUROLOGICAL Hx Neurological Disorder: No - HEENT Hx HEENT Problems: Yes Hx Cataracts: Yes - RENAL Hx Chronic Kidney Disease: Yes - ENDOCRINE/METABOLIC Hx Diabetes Mellitus Type 2: Yes - HEMATOLOGICAL/ONCOLOGICAL Hx Anemia: Yes Hx Human Immunodeficiency Virus (HIV): No - INTEGUMENTARY Hx Dermatological Problems: No - MUSCULOSKELETAL/RHEUMATOLOGICAL Hx Musculoskeletal Disorders: Yes Hx Degenerative Joint Disease: Yes - GENITOURINARY/GYNECOLOGICAL Hx Genitourinary Disorders: Yes Hx Urinary Tract Infection: Yes - PSYCHIATRIC Hx Anxiety: Yes Hx Depression: Yes Hx Substance Use: No - SURGICAL HISTORY Hx Appendectomy: Yes - ANESTHESIA Hx Anesthesia: Yes Hx Anesthesia Reactions: No Hx Malignant Hyperthermia: No Meds Allergies/Adverse Reactions: Allergies Allergy/AdvReac Type Severity Reaction Status Date / Time No Known Allergies Allergy Verified 04/11/17 17:38 - Medications Medications: Current Medications Acetaminophen (Tylenol 325mg Tab) 650 mg PO Q6 PRN PRN Reason: Pain, moderate (4-7) Brimonidine Tartrate (Alphagan 0.2% Opht) 1 ml OU TID [facility] Last Admin: 04/15/17 18:55 Dose: 1 drop Collagenase (Santyl) 1 gm TOP BID [facility] Last Admin: 04/15/17 18:55 Dose: 1 cre Epoetin Maxwell (Procrit) 10,000 unit IV [facility] [place] Stop: 04/22/17 09:01 Last Admin: 04/15/17 11:41 Dose: 10,000 unit Ergocalciferol (Drisdol 50,000 Intl Units Cap) 1 cap PO Q7D [facility] Last Admin: 04/12/17 00:14 Dose: Not Given Ferric Sodium Gluconate Complex (Ferrlecit) 125 mg IVPB [facility] [place] Stop: 04/22/17 09:01 Last Admin: 04/15/17 11:43 Dose: 125 mg Furosemide (Lasix) 40 mg PO DAILY [facility] Last Admin: 04/15/17 13:57 Dose: Not Given Heparin Sodium (Porcine) (Heparin) 5,000 units SC Q12H [facility] Last Admin: 04/15/17 21:42 Dose: 5,000 units Hydralazine HCl (Apresoline) 25 mg PO BID [facility] Last Admin: 04/15/17 18:55 Dose: 25 mg Hydromorphone HCl (Dilaudid) 0.5 mg IVP Q4H PRN PRN Reason: Pain, severe (8-10) Dextrose/Sodium Chloride (Dextrose 5%/0.45% Ns 1000 Ml) 1,000 mls @ 60 mls/hr IV .[id number] [facility] Last Admin: 04/12/17 13:19 Dose: 60 mls/hr Gentamicin Sulfate/Sodium Chloride (Gentamicin Iv 80 Mg Premix) 80 mg in 100 mls @ 100 mls/hr IVPB [facility] [place] Last Admin: 04/15/17 08:20 Dose: 100 mls/hr Piperacillin Sod/Tazobactam Sod (Zosyn 2.25 Gm Iv Premix) 2.25 gm in 50 mls @ 200 mls/hr IVPB Q8 [facility] Last Admin: 04/16/17 06:30 Dose: 200 mls/hr Linezolid (Zyvox 600mg/300ml D5w) 600 mg in 300 mls @ 200 mls/hr IVPB Q12H [facility] Last Admin: 04/16/17 00:36 Dose: 200 mls/hr Insulin Human Regular (Novolin R) 0 unit SC ACHS [facility] PRN Reason: Protocol Last Admin: 04/16/17 08:52 Dose: 10 unit Latanoprost (Xalatan Opht) 0.02 ml OU HS [facility] Last Admin: 04/15/17 21:45 Dose: 0.02 ml Pantoprazole Sodium (Protonix Ec Tab) 40 mg PO DAILY [facility] Last Admin: 04/15/17 13:59 Dose: Not Given Rosuvastatin Calcium (Crestor) 10 mg PO HS [facility] Last Admin: 04/15/17 22:11 Dose: 10 mg Sodium Bicarbonate (Sodium Bicarbonate (8.4%) 50 Meq Syringe) 50 meq IVP ONCE ONE Stop: 04/16/17 11:24 Thiamine HCl (Vitamin B1 Inj) 100 mg IV Q8H [facility] Last Admin: 04/16/17 07:48 Dose: 100 mg Timolol Maleate (Timoptic 0.5% Ophth Soln) 1 drop OU BID [facility] Last Admin: 04/15/17 18:55 Dose: 1 drop Vitamin B Complex/Vit C/Folic Acid (Nephro-Alonzo) 1 tab PO 0800 [facility] Last Admin: 04/15/17 08:19 Dose: 1 tab Physical Exam - Constitutional Appears: Non-toxic, Unkempt, Confused - Head Exam Head Exam: ATRAUMATIC - Eye Exam Eye Exam: Normal appearance - ENT Exam ENT Exam: Mucous Membranes Moist - Respiratory Exam Additional comments: ronchi right lower lobe - GI/Abdominal Exam GI & Abdominal Exam: Soft. absent: Diminished Bowel Sounds, Distended, Guarding - Skin Skin Exam: Intact Results - Vital Signs Recent Vital Signs: Last Vital Signs Temp 98.2 F 04/16/17 08:00 Pulse 103 H 04/16/17 08:00 Resp 18 04/16/17 08:00 BP 129/69 04/16/17 08:00 Pulse Ox 100 04/16/17 08:00 - Labs Result Diagrams: 04/15/17 07:19 04/15/17 07:19 Labs: Laboratory Results - last 24 hr 04/15/17 04/15/17 04/15/17 11:11 15:47 17:11 Puncture Site pCO2 pO2 HCO3 ABG pH ABG Total CO2 ABG O2 Saturation ABG Base Excess ABG Hemoglobin ABG Carboxyhemoglobin POC ABG HHb (Measured) ABG Methemoglobin Joey Test Hgb O2 Saturation Liter Flow Crit Value Called To Crit Value Called By Crit Value Read Back Blood Gas Notified Time POC Glucose (mg/dL) 264 H 338 H Urine Osmolality 299 L Ur Random Sodium 37 04/15/17 04/16/17 04/16/17 21:39 06:28 10:35 Puncture Site Rra pCO2 18 L* pO2 85 HCO3 12.0 L ABG pH 7.27 L ABG Total CO2 8.9 L ABG O2 Saturation 98.8 H ABG Base Excess -16.5 L ABG Hemoglobin 11.1 L ABG Carboxyhemoglobin 2.3 H POC ABG HHb (Measured) 1.2 ABG Methemoglobin 1.6 Joey Test Pos Hgb O2 Saturation 94.9 L Liter Flow 3.0 Crit Value Called To Justice tyler Crit Value Called By Venu rosas Crit Value Read Back Y Blood Gas Notified Time 1039 POC Glucose (mg/dL) 352 H 424 H* Urine Osmolality Ur Random Sodium 04/16/17 10:53 Puncture Site pCO2 pO2 HCO3 ABG pH ABG Total CO2 ABG O2 Saturation ABG Base Excess ABG Hemoglobin ABG Carboxyhemoglobin POC ABG HHb (Measured) ABG Methemoglobin Joey Test Hgb O2 Saturation Liter Flow Crit Value Called To Crit Value Called By Crit Value Read Back Blood Gas Notified Time POC Glucose (mg/dL) 394 H Urine Osmolality Ur Random Sodium Assessment & Plan - Assessment and Plan (Free Text) Assessment: -AMS: exact etiology unknown, however with narcan, patient wsa more awake, check CT head r/o stroke, ammonia, chemistry and cbc today, drug screening serum , patient was spontaneously moving upper extremities when narcan pushed -Sepsis: suspect aspiration, keep HOB >35, avoid sedatives, check CXR, lactic q4hrs -CXR reveals congestion: however able to maintain saturation >92 on 3 liters NC , requested nephrology to perfrom HD given (+)balance yesterday -h/o chronic diastolic heart failure: MAP >65, EF 61%, will benefit from cardiology follow up -Anemia: if no mari bleeding, check BUN/Cr, if FOB high suspect upper Gi bleed -Hyperglycemia: start -PVD: consider gabapentin in lieu of morphine for pain -if severe pain: consider dilaudid as morphine accumulates in patients with renal failure -continue DVT/PUD ppx -Please call ICU after lactic, cbc, cmp, MAg, phos, CXR. Patient remains hemodynamically stable. -continue to monitor on telemetry Please call ICU if patient's clinical status worsens. cc time 45 minutes d/w hospitalist team
--- NOTE | 2017-04-16 11:33 | RAD ---
HISTORY: fluid overload COMPARISON: Comparison is made to 04/11/2017. FINDINGS: LUNGS: Interval mild worsening of pulmonary vascular congestion since the previous exam. PLEURA: Interval worsening of right pleural effusion and re- demonstration of left pleural effusion. CARDIOVASCULAR: The cardiac silhouette is enlarged. OSSEOUS STRUCTURES: No significant abnormalities. VISUALIZED UPPER ABDOMEN: Normal. OTHER FINDINGS: Right sided PICC line is again seen in place. IMPRESSION: Interval worsening of pulmonary vascular congestion and right pleural effusion since the previous exam.
[2017-04-16 11:51] LABS: BASO % 0.1 % (0.0-2.0); HEMATOCRIT 35.8 % (34.0-47.0); LYMPH # 1.2 K/uL (1.0-4.3); LYMPH % 5.6 % (20.0-40.0); MEAN CELL VOLUME 94.8 fL (81.0-99.0); MEAN CORPUSCULAR HGB CONC 31.7 g/dL (33.0-37.0); MEAN PLATELET VOLUME 8.5 fL (7.2-11.7); MONO # 0.7 K/uL (0.0-0.8); NRBC % 0.1 % (0.0-2.0); PLATELET COUNT 319 K/uL (130-400); RED CELL DISTRIBUTION WIDTH 19.9 % (11.5-14.5); WHITE BLOOD COUNT 22.3 K/uL (4.8-10.8)
[2017-04-16] MEDS ORDERED: Iodixanol 320 MG/ML 100 ML BOTTLE IV ONE (11:55)
[2017-04-16] MEDS ORDERED: Sodium Bicarbonate (8.4%) 50 Meq Syringe IVP ONE (12:00)
[2017-04-16 12:12] LABS: ALB/GLOB RATIO 0.7 (1.0-2.1); BILIRUBIN,TOTAL 0.4 mg/dL (0.2-1.3); CALCIUM 7.2 mg/dl (8.6-10.4); POTASSIUM 3.1 mmol/L (3.6-5.2); TOTAL PROTEIN 4.7 g/dL (6.3-8.3)
[2017-04-16 12:29] LABS: NEUTROPHIL 84 % (50-75); REACTIVE LYMPHOCYTES 1 % (0-0); TOTAL CELLS COUNTED 100
[2017-04-16 12:32] LABS: GIANT PLATELETS PRESENT; LARGE PLATELETS PRESENT; PLATELET CLUMPS PRESENT
--- NOTE | 2017-04-16 12:51 | CT ---
PROCEDURE: CT HEAD WITHOUT CONTRAST. HISTORY: CHANGE IN MENTAL STATUS COMPARISON: Comparison is made to the previous study dated 03/01/2017 TECHNIQUE: Axial computed tomography images were obtained through the head/brain without intravenous contrast. Radiation dose: Total exam DLP = 1543.2 mGy-cm. This CT exam was performed using one or more of the following dose reduction techniques: Automated exposure control, adjustment of the mA and/or kV according to patient size, and/or use of iterative reconstruction technique. FINDINGS: HEMORRHAGE: No intracranial hemorrhage. BRAIN: No mass effect or edema. [id number] atrophy and mild chronic microvascular white matter ischemic disease are again noted. VENTRICLES: Unremarkable. No hydrocephalus. CALVARIUM: Unremarkable. PARANASAL SINUSES: Unremarkable as visualized. No significant inflammatory changes. MASTOID AIR CELLS: Unremarkable as visualized. No inflammatory changes. OTHER FINDINGS: None. IMPRESSION: No evidence of acute intracranial pathology. No significant interval change noted since the previous exam. Suboptimal study due to patient's motion.
--- NOTE | 2017-04-16 13:18 | CT ---
PROCEDURE: CT Chest with contrast (Pulmonary Angiogram) HISTORY: dvt RIGHT ARM COMPARISON: Comparison is made to the previous CT of the chest without dated 03/02/2017 TECHNIQUE: Axial computed tomography images were obtained of the chest in the pulmonary arterial phase of enhancement. Coronal and sagittal reformatted images were created and reviewed. Intravenous contrast dose: 100 mL Visipaque 320 Radiation dose: Total exam DLP = 500.8 mGy-cm. This CT exam was performed using one or more of the following dose reduction techniques: Automated exposure control, adjustment of the mA and/or kV according to patient size, and/or use of iterative reconstruction technique. FINDINGS: PULMONARY ARTERIES: There are eccentric filling defect seen at the right upper lobe pulmonary artery likely represent subacute pulmonary emboli. There is also filling defect noted in the left upper lobe pulmonary artery also suggestive of pulmonary embolus. The main pulmonary artery is upper normal limit in size. AORTA: Mild aneurysmal changes of the ascending thoracic aorta is again noted. LUNGS: Partial to complete collapse of the lower lobes likely due to compression by pleural effusion PLEURAL SPACES: Large bilateral pleural effusions. HEART: The heart is mildly enlarged. Again seen is small to moderate pericardial effusion. LYMPH NODES: No lymphadenopathy. BONES, CHEST WALL: Unremarkable. No fracture or destructive lesion moderate soft tissue edema noted at the chest wall. OTHER FINDINGS: Unremarkable. IMPRESSION: Filling defects are noted at both upper lobes pulmonary arteries suggestive of pulmonary embolus. Large bilateral pleural effusion. Mild cardiomegaly. [id number] pericardial effusion. [id number] anasarca. Lower lobe atelectasis due to pleural effusion. The above findings were reported to and discussed with the nurse taking care of the patient at [address] [place] [address] [email or web address] at 1:15 p.m. on 04/16/2017.
[2017-04-16] MEDS: Multivitamin Vitamin B Complex (Nephro-Vite) Tab PO SCH (15:49)
[2017-04-16] MEDS: Pantoprazole 40 mg EC Tab PO SCH (15:49)
[2017-04-16] MEDS: Collagenase 250 Units/gm Ointment(30 gm) TOP SCH ×2 (15:50→18:18)
[2017-04-16] MEDS: Heparin25000 units/250ml 1/2NS 25,000 UNITS/250 ML BAG IV SCH (18:10)
--- NOTE | 2017-04-16 19:14 | CP.PCM.PN ---
Subjective - Date & Time of Evaluation Date of Evaluation: 04/16/17 Time of Evaluation: 07:30 - Subjective Subjective: Progress note for Dr. Myrick Patient was seen and examined at bedside. Patient had consent for central line placement. 2uPRBC given yesterday with 3L off during dialysis. Patient was unable to answer questions, was more lethargic than usual per RN. ICU was consulted, patient was brought to ICU after being placed on heparin drip and one dose bolus of heparin 5000 was ordered. Objective - Vital Signs/Intake and Output Vital Signs (last 24 hours): Temp Pulse Resp BP Pulse Ox 98.2 F 88 16 91/60 L 2 L 04/16/17 16:15 04/16/17 16:15 04/16/17 16:15 04/16/17 16:15 04/16/17 16:15 Intake and Output: 04/16/17 04/17/17 18:59 06:59 Output Total 50 Balance -50 - Medications Medications: Current Medications Acetaminophen (Tylenol 325mg Tab) 650 mg PO Q6 PRN PRN Reason: Pain, moderate (4-7) Brimonidine Tartrate (Alphagan 0.2% Opht) 1 ml OU TID [facility] Last Admin: 04/16/17 18:20 Dose: 1 drop Collagenase (Santyl) 1 gm TOP BID [facility] Last Admin: 04/16/17 18:18 Dose: 1 cre Epoetin Maxwell (Procrit) 10,000 unit IV [facility] [place] [facility] [place] Stop: 04/22/17 09:01 Last Admin: 04/15/17 11:41 Dose: 10,000 unit Ergocalciferol (Drisdol 50,000 Intl Units Cap) 1 cap PO Q7D [facility] Last Admin: 04/12/17 00:14 Dose: Not Given Ferric Sodium Gluconate Complex (Ferrlecit) 125 mg IVPB [facility] [place] [facility] [place] Stop: 04/22/17 09:01 Last Admin: 04/15/17 11:43 Dose: 125 mg Furosemide (Lasix) 40 mg PO DAILY [facility] Last Admin: 04/16/17 15:49 Dose: Not Given Hydralazine HCl (Apresoline) 25 mg PO BID [facility] Last Admin: 04/16/17 18:19 Dose: Not Given Hydromorphone HCl (Dilaudid) 0.5 mg IVP Q4H PRN PRN Reason: Pain, severe (8-10) Dextrose/Sodium Chloride (Dextrose 5%/0.45% Ns 1000 Ml) 1,000 mls @ 60 mls/hr IV .[id number] [facility] Last Admin: 04/12/17 13:19 Dose: 60 mls/hr Gentamicin Sulfate/Sodium Chloride (Gentamicin Iv 80 Mg Premix) 80 mg in 100 mls @ 100 mls/hr IVPB MWF [facility] Last Admin: 04/15/17 08:20 Dose: 100 mls/hr Piperacillin Sod/Tazobactam Sod (Zosyn 2.25 Gm Iv Premix) 2.25 gm in 50 mls @ 200 mls/hr IVPB Q8 [facility] Last Admin: 04/16/17 15:51 Dose: Not Given Linezolid (Zyvox 600mg/300ml D5w) 600 mg in 300 mls @ 200 mls/hr IVPB Q12H [facility] Last Admin: 04/16/17 15:51 Dose: Not Given Heparin Sodium/Sodium Chloride (Heparin 45429 Units/250ml 1/2 Normal Saline) 25 ,000 units in 250 mls @ 11.676 mls/hr IV .[id number] [facility]; 18 UNIT/KG/HR PRN Reason: Protocol Last Admin: 04/16/17 18:10 Dose: 18 unit/kg/hr, 11.676 mls/hr Insulin Glargine (Lantus) 30 unit SC HS [facility] Insulin Human Regular (Novolin R) 0 unit SC ACHS [facility] PRN Reason: Protocol Last Admin: 04/16/17 18:40 Dose: 10 unit Latanoprost (Xalatan Opht) 0.02 ml OU HS [facility] Last Admin: 04/15/17 21:45 Dose: 0.02 ml Pantoprazole Sodium (Protonix Ec Tab) 40 mg PO DAILY [facility] Last Admin: 04/16/17 15:49 Dose: Not Given Rosuvastatin Calcium (Crestor) 10 mg PO HS [facility] Last Admin: 04/15/17 22:11 Dose: 10 mg Thiamine HCl (Vitamin B1 Inj) 100 mg IV Q8H [facility] Last Admin: 04/16/17 15:51 Dose: Not Given Timolol Maleate (Timoptic 0.5% Oph Soln) 1 drop OU BID [facility] Last Admin: 04/16/17 18:19 Dose: 1 drop Vitamin B Complex/Vit C/Folic Acid (Nephro-Kevin) 1 tab PO 0800 [facility] Last Admin: 04/16/17 15:49 Dose: Not Given - Labs Labs: 04/16/17 11:41 04/16/17 11:41 PT 11.7 SECONDS (9.7-12.2) 04/11/17 18:55 INR 1.0 04/11/17 18:55 APTT 28 SECONDS (21-34) 04/16/17 17:37 - Constitutional Appears: Confused, Chronically Ill - Head Exam Head Exam: NORMAL INSPECTION - Eye Exam Eye Exam: EOMI, Normal appearance - ENT Exam ENT Exam: Mucous Membranes Moist - Neck Exam Neck Exam: Full ROM - Cardiovascular Exam Cardiovascular Exam: Tachycardia. absent: Bradycardia - GI/Abdominal Exam GI & Abdominal Exam: Soft - Extremities Exam Extremities Exam: Pedal Edema - Neurological Exam Neurological Exam: Normal Gait - Psychiatric Exam Additional comments: groggy - Skin Skin Exam: Pallor Additional comments: anascara Assessment and Plan - Assessment and Plan (Free Text) Assessment: (1) Sepsis Assessment & Plan: Infectious Disease, Dr. Wellington on board----> help appreciated Leukocytosis resolving, no bandemia On admission: WBC: 21.3, HR: 107 Sacral culture (04/11/17) : Gram negative kendy, proteus mirabilis Blood culture (04/11/17): Gram positive cocci, Staphyl aureus and coag-negative staph S/P Left BKA (04/11/17): Gram negative kendy, proteus mirabilis, klebsiella pneumonia and vancomycin resistance E.faecium Medications: * Gentamicin 80mg IVPB HD * Zosyn 2.25gm IVPB Q8H * Vancomycin 1gm IVPB on HD---> Discontinued * Linezolid 600mg IVPB Q12H ---> Started on 04/14 Status: Acute DVT of right arm PICC line in place. leaking per staff trainer. 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 Ambrose---> Help appreciated * Management as per recommendation Management/Medications: On HD (TTS) ---> MWF ( for this admission) * Via Left Arm shunt Ergocalciferol 1 cap PO Q7D Procrit 10,000 unit IV MWF Ferric sodium gluconate 125 mg MWF Nephrovite Status: Chronic (3) Sacral decubitus ulcer, stage III Assessment & Plan: General Surgery, Dr. Broussard consulted * No surgical intervention at this time ID, Dr. Wellington consulted Lab: Gram Negative kendy, proteus mirabilis Medication: * Gentamicin 80mg IVPB HD * Zosyn 2.25gm IVPB Q8H * Linezolid 600mg IVPB Q12H (started 04/14/17) Status: Acute (4) S/P BKA (below knee amputation) Assessment & Plan: General Surgery, Dr. Broussard---> Help appreciated IDDr. Wellington----> Help appreciated Lab: Wound culture: Gram negative kendy; proteus mirabilis, klebsiella pneumonia and vancomycin resistance E.faecium Medications: * Gentamicin 80mg IVPB HD * Zosyn 2.25gm IVPB Q8H * Linezolid 600mg IVPB Q12H Status: Acute (5) Anemia, chronic disease Assessment & Plan: H/H unstable * transfused 2 units of PRBC on HD * Monitor H/H with am labs Medication: * Procrit 10,000 unit IV TTS ( on HD) * Vitamin B1 100mg IV Q8H * Nephro kevin Status: Chronic (6) Glaucoma Assessment & Plan: Medications: * Timolol 0.5% OU BID * Latanoprost 0.02 ml OU HS * Brimonidine 1ml OU TID Status: Acute (7) DM2 (diabetes mellitus, type 2) Assessment & Plan: Management/Medication: * Accuchecks * ISS medium dose * Hypoglycemia protocol Status: Chronic (8) History of CHF (congestive heart failure) Assessment & Plan: Medication: * Lasix 40mg PO daily Status: Acute (9) Hypertension Assessment & Plan: Medication: * Norvasc 5mg PO daily (Held due to peripheral edema) * Hydralazine 25mg PO BID * Lisinopril 20mg PO daily Status: Chronic (10) History of hyperlipidemia Assessment & Plan: Crestor 10mg PO HS Status: Acute (11) Prophylactic measure Assessment & Plan: GI: Protonix 40mg PO daily DVT: Heparin 5,000 units SC Q12H discontinued treatment for PE of chest and DVT of right arm: 5000u Heparin bolus (once) and Heparin Drip. PT and OT Status: Acute
[2017-04-16] MEDS: Latanoprost 2.5 ml Opht Soln OU SCH (21:33)
[2017-04-16] MEDS: (Lantus) Insulin Glargine, Recombinant SC SCH (21:34)
--- NOTE | 2017-04-16 22:52 | CP.PCM.PN ---
Subjective - Date & Time of Evaluation Date of Evaluation: 04/16/17 Time of Evaluation: 15:00 - Subjective Subjective: WAS FOUND IN P. EDEMA AND P . EMBOLISM PER CI ANGIO RECIEVED HD FOR UF OF 3 L WAS STARTED ON IV HEP AND TRANSFERED TO ICU Objective - Vital Signs/Intake and Output Vital Signs (last 24 hours): Temp Pulse Resp BP Pulse Ox 98.3 F 80 29 H 91/60 L 100 04/16/17 20:00 04/16/17 21:00 04/16/17 21:00 04/16/17 16:15 04/16/17 21:00 Intake and Output: 04/16/17 04/17/17 18:59 06:59 Intake Total 11.7 46.8 Output Total 30 10 Balance -18.3 36.8 - Medications Medications: Current Medications Acetaminophen (Tylenol 325mg Tab) 650 mg PO Q6 PRN PRN Reason: Pain, moderate (4-7) Brimonidine Tartrate (Alphagan 0.2% Opht) 1 ml OU TID [facility] Last Admin: 04/16/17 18:20 Dose: 1 drop Collagenase (Santyl) 1 gm TOP BID [facility] Last Admin: 04/16/17 18:18 Dose: 1 cre Epoetin Maxwell (Procrit) 10,000 unit IV [facility] [place] Stop: 04/22/17 09:01 Last Admin: 04/15/17 11:41 Dose: 10,000 unit Ergocalciferol (Drisdol 50,000 Intl Units Cap) 1 cap PO Q7D [facility] Last Admin: 04/12/17 00:14 Dose: Not Given Ferric Sodium Gluconate Complex (Ferrlecit) 125 mg IVPB [facility] [place] Stop: 04/22/17 09:01 Last Admin: 04/15/17 11:43 Dose: 125 mg Furosemide (Lasix) 40 mg PO DAILY [facility] Last Admin: 04/16/17 15:49 Dose: Not Given Hydralazine HCl (Apresoline) 25 mg PO BID [facility] Last Admin: 04/16/17 18:19 Dose: Not Given Hydromorphone HCl (Dilaudid) 0.5 mg IVP Q4H PRN PRN Reason: Pain, severe (8-10) Dextrose/Sodium Chloride (Dextrose 5%/0.45% Ns 1000 Ml) 1,000 mls @ 60 mls/hr IV .[id number] [facility] Last Admin: 04/12/17 13:19 Dose: 60 mls/hr Gentamicin Sulfate/Sodium Chloride (Gentamicin Iv 80 Mg Premix) 80 mg in 100 mls @ 100 mls/hr IVPB MWF [facility] Last Admin: 04/15/17 08:20 Dose: 100 mls/hr Piperacillin Sod/Tazobactam Sod (Zosyn 2.25 Gm Iv Premix) 2.25 gm in 50 mls @ 200 mls/hr IVPB Q8 [facility] Last Admin: 04/16/17 21:34 Dose: 200 mls/hr Linezolid (Zyvox 600mg/300ml D5w) 600 mg in 300 mls @ 200 mls/hr IVPB Q12H [facility] Last Admin: 04/16/17 15:51 Dose: Not Given Heparin Sodium/Sodium Chloride (Heparin 36251 Units/250ml 1/2 Normal Saline) 25 ,000 units in 250 mls @ 11.676 mls/hr IV .[id number] [facility]; 18 UNIT/KG/HR PRN Reason: Protocol Last Admin: 04/16/17 18:10 Dose: 18 unit/kg/hr, 11.676 mls/hr Insulin Glargine (Lantus) 30 unit SC HS [facility] Last Admin: 04/16/17 21:34 Dose: 30 u Insulin Human Regular (Novolin R) 0 unit SC ACHS [facility] PRN Reason: Protocol Last Admin: 04/16/17 21:33 Dose: 3 unit Latanoprost (Xalatan Opht) 0.02 ml OU HS [facility] Last Admin: 04/16/17 21:33 Dose: 0.02 ml Pantoprazole Sodium (Protonix Ec Tab) 40 mg PO DAILY [facility] Last Admin: 04/16/17 15:49 Dose: Not Given Rosuvastatin Calcium (Crestor) 10 mg PO HS [facility] Last Admin: 04/16/17 21:42 Dose: Not Given Thiamine HCl (Vitamin B1 Inj) 100 mg IV Q8H [facility] Last Admin: 04/16/17 21:31 Dose: 100 mg Timolol Maleate (Timoptic 0.5% Oph Soln) 1 drop OU BID [facility] Last Admin: 04/16/17 18:19 Dose: 1 drop Vitamin B Complex/Vit C/Folic Acid (Nephro-Alonzo) 1 tab PO 0800 [facility] Last Admin: 04/16/17 15:49 Dose: Not Given - Labs Labs: 04/16/17 11:41 04/16/17 11:41 PT 11.7 SECONDS (9.7-12.2) 04/11/17 18:55 INR 1.0 04/11/17 18:55 APTT 28 SECONDS (21-34) 04/16/17 17:37 Assessment and Plan - Assessment and Plan (Free Text) Assessment: ESRD ON HD .. RECIEVED STAT HD TO UF OF 3 LITRE ANEMIA OF CKD .. H/H BETTER PE ON IV HEPARIN MULTIPLE CO MORBIDITIES P : C/O HD C/O EPO AND FERRLICIT C/O IV HEP
[2017-04-17] MEDS: Thiamine 100 mg/ml Inj IV SCH ×3 (05:46→21:50)
[2017-04-17] MEDS: Piperacill/Tazo 2.25gm in Dex 2.25 GM/50 ML BAG IVPB SCH ×3 (05:47→21:52)
[2017-04-17 06:46] LABS: BASO # 0.1 K/uL (0.0-0.2); BASO % 0.3 % (0.0-2.0); EOS # 0.1 K/uL (0.0-0.7); EOS % 0.4 % (0.0-4.0); HEMATOCRIT 34.9 % (34.0-47.0); LYMPH # 1.7 K/uL (1.0-4.3); MEAN CORPUSCULAR HGB CONC 32.7 g/dL (33.0-37.0); MEAN PLATELET VOLUME 8.8 fL (7.2-11.7); MONO # 0.8 K/uL (0.0-0.8); MONO % 3.9 % (0.0-10.0); NRBC % 0.1 % (0.0-2.0); PLATELET COUNT 239 K/uL (130-400); RED CELL DISTRIBUTION WIDTH 18.6 % (11.5-14.5)
[2017-04-17 06:54] LABS: MEAN CELL VOLUME 91.8 fL (81.0-99.0)
[2017-04-17 07:12] LABS: ALB/GLOB RATIO 0.7 (1.0-2.1); BILIRUBIN,TOTAL 0.5 mg/dL (0.2-1.3); CALCIUM 6.9 mg/dl (8.6-10.4); MAGNESIUM 1.7 mg/dL (1.6-2.3); POTASSIUM 2.9 mmol/L (3.6-5.2); TOTAL PROTEIN 4.7 g/dL (6.3-8.3)
[2017-04-17] MEDS: (Novolin R) Insulin Human Regular 100 units/ml vial SC SCH ×5 (07:30→22:19)
--- NOTE | 2017-04-17 08:22 | CP.PCM.PN ---
Subjective - Date & Time of Evaluation Date of Evaluation: 04/17/17 Time of Evaluation: 06:30 - Subjective Subjective: Vascular Surgery- Dr. Broussard Patient seen and examined at bedside this morning. Patient responsive to verbal stimuli. RUE PICC in place, can flush, unable to withdraw w/ DVT. On Heparin drip. LLE BKA stump dressing changed at bedside. Santyl applied to affected area. Objective - Vital Signs/Intake and Output Vital Signs (last 24 hours): Temp Pulse Resp BP Pulse Ox 98 F 95 H 27 H 133/50 L 99 04/17/17 04:00 04/17/17 07:50 04/17/17 07:50 04/17/17 07:18 04/17/17 07:50 Intake and Output: 04/17/17 04/17/17 06:59 18:59 Intake Total 547.3 9.7 Output Total 50 Balance 497.3 9.7 - Medications Medications: Current Medications Acetaminophen (Tylenol 325mg Tab) 650 mg PO Q6 PRN PRN Reason: Pain, moderate (4-7) Brimonidine Tartrate (Alphagan 0.2% Opht) 1 ml OU TID [facility] Last Admin: 04/16/17 18:20 Dose: 1 drop Collagenase (Santyl) 1 gm TOP BID [facility] Last Admin: 04/16/17 18:18 Dose: 1 cre Epoetin Maxwell (Procrit) 10,[address] [facility] [place]: 04/22/17 09:01 Last Admin: 04/15/17 11:41 Dose: 10,000 unit Ergocalciferol (Drisdol 50,000 Intl Units Cap) 1 cap PO Q7D [facility] Last Admin: 04/12/17 00:14 Dose: Not Given Ferric Sodium Gluconate Complex (Ferrlecit) [address] [facility] [place]: 04/22/17 09:01 Last Admin: 04/15/17 11:43 Dose: 125 mg Furosemide (Lasix) 40 mg PO DAILY [facility] Last Admin: 04/16/17 15:49 Dose: Not Given Hydralazine HCl (Apresoline) 25 mg PO BID [facility] Last Admin: 04/16/17 18:19 Dose: Not Given Hydromorphone HCl (Dilaudid) 0.5 mg IVP Q4H PRN PRN Reason: Pain, severe (8-10) Dextrose/Sodium Chloride (Dextrose 5%/0.45% Ns 1000 Ml) 1,000 mls @ 60 mls/hr IV .[id number] [facility] Last Admin: 04/12/17 13:19 Dose: 60 mls/hr Gentamicin Sulfate/Sodium Chloride (Gentamicin Iv 80 Mg Premix) 80 mg in 100 mls @ 100 mls/hr IVPB MWF [facility] Last Admin: 04/15/17 08:20 Dose: 100 mls/hr Piperacillin Sod/Tazobactam Sod (Zosyn 2.25 Gm Iv Premix) 2.25 gm in 50 mls @ 200 mls/hr IVPB Q8 [facility] Last Admin: 04/17/17 05:47 Dose: 200 mls/hr Linezolid (Zyvox 600mg/300ml D5w) 600 mg in 300 mls @ 200 mls/hr IVPB Q12H [facility] Last Admin: 04/16/17 23:48 Dose: 200 mls/hr Heparin Sodium/Sodium Chloride (Heparin 03527 Units/250ml 1/2 Normal Saline) 25 ,000 units in 250 mls @ 11.676 mls/hr IV .[id number] [facility]; 18 UNIT/KG/HR PRN Reason: Protocol Last Titration: 04/17/17 01:56 Dose: 14.95 unit/kg/hr, 9.7 mls/hr Insulin Glargine (Lantus) 30 unit SC HS [facility] Last Admin: 04/16/17 21:34 Dose: 30 u Insulin Human Regular (Novolin R) 0 unit SC [facility] PRN Reason: Protocol Last Admin: 04/16/17 21:33 Dose: 3 unit Latanoprost (Xalatan Opht) 0.02 ml OU HS [facility] Last Admin: 04/16/17 21:33 Dose: 0.02 ml Pantoprazole Sodium (Protonix Ec Tab) 40 mg PO DAILY [facility] Last Admin: 04/16/17 15:49 Dose: Not Given Rosuvastatin Calcium (Crestor) 10 mg PO HS [facility] Last Admin: 04/16/17 21:42 Dose: Not Given Thiamine HCl (Vitamin B1 Inj) 100 mg IV Q8H [facility] Last Admin: 04/17/17 05:46 Dose: 100 mg Timolol Maleate (Timoptic 0.5% Ophth Soln) 1 drop OU BID [facility] Last Admin: 04/16/17 18:19 Dose: 1 drop Vitamin B Complex/Vit C/Folic Acid (Nephro-Alonzo) 1 tab PO 0800 [facility] Last Admin: 04/16/17 15:49 Dose: Not Given - Labs Labs: 04/17/17 06:36 04/17/17 06:36 PT 11.7 SECONDS (9.7-12.2) 04/11/17 18:55 INR 1.0 04/11/17 18:55 APTT 153 SECONDS (21-34) H* D 04/17/17 00:42 - Constitutional Appears: No Acute Distress, Chronically Ill - Head Exam Head Exam: ATRAUMATIC - Eye Exam Eye Exam: absent: Scleral icterus - ENT Exam ENT Exam: Mucous Membranes Moist - Respiratory Exam Respiratory Exam: NORMAL BREATHING PATTERN. absent: Accessory Muscle Use, Respiratory Distress - Cardiovascular Exam Cardiovascular Exam: +S1, +S2. absent: Bradycardia, Tachycardia - GI/Abdominal Exam GI & Abdominal Exam: Soft. absent: Distended, Firm, Guarding, Rigid, Tenderness - Extremities Exam Additional comments: Left BKA stump dressing changed at bedside. Area of necrosis on lateral side. No active purulent drainage. erythema around lateral side w/ mild skin maceration - Neurological Exam Neurological Exam: Awake - Skin Skin Exam: Dry Assessment and Plan - Assessment and Plan (Free Text) Assessment: 71F s/p Left BKA hospitalized for DVT RUE w/ PICC Plan: - Local wound care BID w/ santyl of left lower extremity - Heparin drip - medical management per ICU team - no acute surgical intervention at this time - further recs per Dr. Bobo Sandhu PGY1
[2017-04-17] MEDS ORDERED: Potassium Chloride 20 mEq ER Tab PO ONE (08:30)
[2017-04-17 08:31] LABS: NEUTROPHIL 81 % (50-75); TOTAL CELLS COUNTED 100
[2017-04-17] MEDS: Multivitamin Vitamin B Complex (Nephro-Vite) Tab PO SCH ×2 (10:11→12:39)
[2017-04-17] MEDS: Pantoprazole 40 mg EC Tab PO SCH (10:12)
[2017-04-17] MEDS: Brimonidine 0.2% Opth Sol (5ml) OU SCH ×3 (10:19→18:04)
[2017-04-17] MEDS: Collagenase 250 Units/gm Ointment(30 gm) TOP SCH ×2 (10:26→18:12)
--- NOTE | 2017-04-17 10:49 | VASCLAB ---
PROCEDURE: Upper Extremity Venous Duplex Exam HISTORY: edema PRIORS: None. TECHNIQUE: Bilateral upper extremity, internal jugular, subclavian, axillary, brachial, ulnar, radial, basilic and upper cephalic veins were evaluated. Flow was assessed with color Doppler, compressibility, assessment of phasic flow and augmentation response. Report prepared by ANGELA Barkley, RVT FINDINGS: RIGHT: 1. Internal Jugular: 1.1. Compressibility - Partial: Thrombus - Chronic : Flow - Reduced : Augmentation -Reduced: Reflux - None. 2. Subclavian: 2.1. Compressibility - Fully compressible: Thrombus - None : Flow - Phasic: Augmentation -Normal: Reflux - None. 3. Axillary: 3.1. Compressibility - Partial: Thrombus - Acute : Flow - Absent : Augmentation -None: Reflux - None. 4. Brachial: 4.1. Compressibility - Partial: Thrombus - Acute: Flow - Absent : Augmentation -None: Reflux - None. 5. Ulnar: 5.1. Compressibility - Fully compressible: Thrombus - None: Flow - Phasic: Augmentation -Normal: Reflux - None. 6. Radial: 6.1. Compressibility - Fully compressible: Thrombus - None: Flow - Phasic: Augmentation - Normal: Reflux - None. 7. Cephalic: 7.1. Compressibility - Fully compressible: Thrombus - None: Flow - Phasic: Augmentation -Normal: Reflux - None. 8. Basilic: 8.1. Compressibility - Fully compressible: Thrombus - None: Flow - Phasic: Augmentation -Normal: Reflux - None. LEFT: 1. Internal Jugular: 1.1. Compressibility - Fully compressible: Thrombus - None : Flow - Phasic: Augmentation -Normal: Reflux - None. 2. Subclavian: 2.1. Compressibility - Fully compressible: Thrombus - None : Flow - Phasic: Augmentation -Normal: Reflux - None. 3. Axillary: 3.1. Compressibility - Fully compressible: Thrombus - None : Flow - Phasic: Augmentation -Normal: Reflux - None. 4. Brachial: 4.1. Compressibility - : Thrombus - : Flow - : Augmentation -: Reflux - . 5. Ulnar: 5.1. Compressibility - Fully compressible: Thrombus - None: Flow - Phasic: Augmentation -Normal: Reflux - None. 6. Radial: 6.1. Compressibility - Fully compressible: Thrombus - None: Flow - Phasic: Augmentation - Normal: Reflux - None. 7. Cephalic: 7.1. Compressibility - Fully compressible: Thrombus - None: Flow - Phasic: Augmentation -Normal: Reflux - None. 8. Basilic: 8.1. Compressibility - : Thrombus - : Flow - : Augmentation -: Reflux - . OTHER FINDINGS: KINDRA Rivera notified about the findings. Left: Unable to image the left brachial and basilic veins due to bandage on fistula. IMPRESSION: Right: Acute thrombosis of the right axillary and brachial veins with severe reduction of the venous return. 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 Left: No evidence of vein thrombosis of the left upper extremity with excellent venous flow. Normal valve function noted of the left side.
[2017-04-17] MEDS: Linezolid 600 mg in D5W 300 ml 600 MG/300 ML BAG IVPB SCH ×2 (14:00→23:47)
[2017-04-17] MEDS: Heparin25000 units/250ml 1/2NS 25,000 UNITS/250 ML BAG IV SCH (14:11)
[2017-04-17] MEDS: Epoetin Alfa 10,000 unit/ml Dialysis IV SCH (16:50)
[2017-04-17] MEDS: Gentamicin 80 mg in 0.9% NS 80 MG/100 ML BAG IVPB SCH (17:29)
[2017-04-17] MEDS: Ferric Sodium Gluconat Complex 62.5 mg/5 ml Vial IVPB SCH (17:29)
--- NOTE | 2017-04-17 18:03 | CP.CCUPN ---
<Gokul Dinh - Last Filed: 04/17/17 19:19> CCU Subjective - Physician Review Subjective (Free Text): PGY1 ICU consult note for Dr. Cabrera Patient seen and examined at bedside this morning. No acute events overnight. Patient was awake and responsive to verbal stimuli. Patient is non-verbal, as per baseline. ROS is unattainable. CCU Objective - Vital Signs / Intake & Output Intake and Output (Last 8hrs): Intake & Output 04/17/17 04/17/17 04/17/17 06:59 14:59 22:59 Intake Total 500.5 718.2 400 Output Total 40 20 Balance 460.5 698.2 400 Weight 137 lb 4.8 oz Intake: IV 50 Intake, IV Amount 450.5 318.2 200 PICC 450.5 259.7 200 PICC 2 58.5 Oral 400 200 Output: Urine 40 20 Urethral (Hurst) 40 20 Other: # Bowel Movements 1 - Physical Exam Head: Positive for: Atraumatic Pupils: Positive for: PERRL Extroacular Muscles: Positive for: EOMI Mouth: Positive for: Moist Mucous Membranes Respiratory/Chest: Positive for: Clear to Auscultation, Good Air Exchange. Negative for: Respiratory Distress, Accessory Muscle Use Cardiovascular: Positive for: Regular Rate and Rhythm Abdomen: Negative for: Tenderness, Distention Lower Extremity: Positive for: Other (s/p left AKA) Skin: Positive for: Warm, Dry Psychiatric: Positive for: Alert - Medications Active Medications: Active Medications Generic Name Dose Route Start Last Admin Trade Name Freq PRN Reason Stop Dose Admin Acetaminophen 650 mg 04/11/17 22:25 Tylenol 325mg Tab PO Q6 PRN Pain, moderate (4-7) Apixaban 10 mg 04/17/17 18:00 Eliquis PO 04/20/17 18:01 BID ELINA Apixaban 5 mg 04/24/17 10:00 Eliquis PO BID ELINA Brimonidine Tartrate 1 ml 04/12/17 10:00 04/17/17 14:00 Alphagan 0.2% Opht OU 1 drop TID ELINA Administration Collagenase 1 gm 04/15/17 18:00 04/17/17 10:26 Santyl TOP 1 cre BID ELINA Administration Epoetin Maxwell 10,000 unit 04/13/17 11:56 04/17/17 16:50 Procrit IV 04/22/17 09:01 Not Given MWF [facility] Ergocalciferol 1 cap 04/11/17 22:30 04/12/17 00:14 Drisdol 50,000 Intl Units Cap PO Not Given Q7D [facility] Ferric Sodium Gluconate Complex 125 mg 04/13/17 09:00 04/17/17 17:29 Ferrlecit IVPB 04/22/17 09:01 Not Given MWF [facility] Furosemide 40 mg 04/12/17 10:00 04/17/17 10:00 Lasix PO Not Given DAILY [facility] Hydralazine HCl 25 mg 04/12/17 10:00 04/17/17 12:40 Apresoline PO 25 mg BID ELINA Administration Hydromorphone HCl 0.5 mg 04/11/17 22:25 Dilaudid IVP Q4H PRN Pain, severe (8-10) Dextrose/Sodium Chloride 1,000 mls @ 60 mls/hr 04/12/17 11:00 04/12/17 13:19 Dextrose 5%/0.45% Ns 1000 Ml IV 60 mls/hr .[id number] ELINA Administration Gentamicin Sulfate/Sodium Chloride 80 mg in 100 mls @ 100 mls/hr 04/13/17 09: 00 04/17/17 17:29 Gentamicin Iv 80 Mg Premix IVPB Not [facility] Piperacillin Sod/Tazobactam Sod 2.25 gm in 50 mls @ 200 mls/hr 04/13/17 14:00 04/17/17 15:00 Zosyn 2.25 Gm Iv Premix IVPB 200 mls/hr Q8 ELINA Administration Linezolid 600 mg in 300 mls @ 200 mls/hr 04/14/17 12:00 04/17/17 14:00 Zyvox 600mg/300ml D5w IVPB 200 mls/hr Q12H ELINA Administration Insulin Glargine 30 unit 04/16/17 22:00 04/16/17 21:34 Lantus SC 30 u HS ELINA Administration Insulin Human Regular 0 unit 04/12/17 07:30 04/17/17 12:41 Novolin R SC 3 unit ACHS ELINA Administration Protocol Latanoprost 0.02 ml 04/12/17 22:00 04/16/17 21:33 Xalatan Opht OU 0.02 ml HS ELINA Administration Pantoprazole Sodium 40 mg 04/18/17 10:00 Protonix Susp PO DAILY ELINA Rosuvastatin Calcium 10 mg 04/12/17 22:00 04/16/17 21:42 Crestor PO Not Given HS ELINA Thiamine HCl 100 mg 04/11/17 22:30 04/17/17 14:41 Vitamin B1 Inj IV 100 mg Q8H ELINA Administration Timolol Maleate 1 drop 04/12/17 10:00 04/17/17 10:20 Timoptic 0.5% Ophth Soln OU 1 drop BID ELINA Administration Vitamin B Complex/Vit C/Folic Acid 1 tab 04/12/17 08:00 04/17/17 12:39 Nephro-Alonzo PO 1 tab 0800 ELINA Administration - Patient Studies Lab Studies: Microbiology Studies 04/16/17 Unknown MRSA Culture (Admit) - Final Nose MRSA NOT DETECTED 04/16/17 15:30 Blood Culture - Preliminary Blood-Venous NO GROWTH AFTER 24 HOURS 04/16/17 10:50 Blood Culture - Preliminary Blood-Venous NO GROWTH AFTER 24 HOURS 04/11/17 14:55 Blood Culture - Final Blood NO GROWTH AFTER 5 DAYS Gram Stain - Final TEST NOT PERFORMED Lab Studies 04/17/17 04/17/17 04/17/17 Range/Units 16:08 12:11 08:58 WBC (4.8-10.8) K/uL RBC (3.80-5.20) Mil/uL Hgb (11.0-16.0) g/dL Hct (34.0-47.0) % MCV (81.0-99.0) fL MCH (27.0-31.0) pg MCHC (33.0-37.0) g/dL RDW (11.5-14.5) % Plt Count (130-400) K/uL MPV (7.2-11.7) fL Neut % (Auto) (50.0-75.0) % Lymph % (Auto) (20.0-40.0) % Stewart % (Auto) (0.0-10.0) % Eos % (Auto) (0.0-4.0) % Baso % (Auto) (0.0-2.0) % Neut # (1.8-7.0) K/uL Lymph # (1.0-4.3) K/uL Stewart # (0.0-0.8) K/uL Eos # (0.0-0.7) K/uL Baso # (0.0-0.2) K/uL Neutrophils % (Manual) (50-75) % Band Neutrophils % (0-2) % Lymphocytes % (Manual) (20-40) % Monocytes % (Manual) (0-10) % Platelet Estimate (NORMAL) Anisocytosis (manual) Karen Cells APTT 41 H D (21-34) SECONDS Sodium (132-148) mmol/L Potassium (3.6-5.2) mmol/L Chloride (98-107) mmol/L Carbon Dioxide (22-30) mmol/L Anion Gap (10-20) BUN (7-17) mg/dL Creatinine (0.7-1.2) mg/dL Est GFR ( Amer) Est GFR (Non-Af Amer) POC Glucose (mg/dL) 181 H 216 H (65-110) mg/dL Random Glucose (65-105) mg/dL Calcium (8.6-10.4) mg/dl Phosphorus (2.5-4.5) mg/dL Magnesium (1.6-2.3) mg/dL Total Bilirubin (0.2-1.3) mg/dL AST (14-36) U/L ALT (9-52) U/L Alkaline Phosphatase (38-126) U/L Total Protein (6.3-8.3) g/dL Albumin (3.5-5.0) g/dL Globulin (2.2-3.9) gm/dL Albumin/Globulin Ratio (1.0-2.1) 04/17/17 04/17/17 04/17/17 Range/Units 08:15 06:36 06:36 WBC 21.0 H (4.8-10.8) K/uL RBC 3.80 (3.80-5.20) Mil/uL Hgb 11.4 (11.0-16.0) g/dL Hct 34.9 (34.0-47.0) % MCV 91.8 D (81.0-99.0) fL MCH 30.0 (27.0-31.0) pg MCHC 32.7 L (33.0-37.0) g/dL RDW 18.6 H (11.5-14.5) % Plt Count 239 (130-400) K/uL MPV 8.8 (7.2-11.7) fL Neut % (Auto) 87.4 H (50.0-75.0) % Lymph % (Auto) 8.0 L (20.0-40.0) % Stewart % (Auto) 3.9 (0.0-10.0) % Eos % (Auto) 0.4 (0.0-4.0) % Baso % (Auto) 0.3 (0.0-2.0) % Neut # 18.3 H (1.8-7.0) K/uL Lymph # 1.7 (1.0-4.3) K/uL Stewart # 0.8 (0.0-0.8) K/uL Eos # 0.1 (0.0-0.7) K/uL Baso # 0.1 (0.0-0.2) K/uL Neutrophils % (Manual) 81 H (50-75) % Band Neutrophils % 4 H (0-2) % Lymphocytes % (Manual) 11 L (20-40) % Monocytes % (Manual) 4 (0-10) % Platelet Estimate Normal (NORMAL) Anisocytosis (manual) Slight Karen Cells Moderate APTT (21-34) SECONDS Sodium 128 L (132-148) mmol/L Potassium 2.9 L (3.6-5.2) mmol/L Chloride 94 L (98-107) mmol/L Carbon Dioxide 22 (22-30) mmol/L Anion Gap 14 (10-20) BUN 24 H (7-17) mg/dL Creatinine 1.4 H (0.7-1.2) mg/dL Est GFR ( Amer) 45 Est GFR (Non-Af Amer) 37 POC Glucose (mg/dL) 210 H (65-110) mg/dL Random Glucose 184 H (65-105) mg/dL Calcium 6.9 L (8.6-10.4) mg/dl Phosphorus 3.0 (2.5-4.5) mg/dL Magnesium 1.7 (1.6-2.3) mg/dL Total Bilirubin 0.5 (0.2-1.3) mg/dL AST 18 (14-36) U/L ALT 32 (9-52) U/L Alkaline Phosphatase 256 H (38-126) U/L Total Protein 4.7 L (6.3-8.3) g/dL Albumin 1.9 L (3.5-5.0) g/dL Globulin 2.8 (2.2-3.9) gm/dL Albumin/Globulin Ratio 0.7 L (1.0-2.1) 04/17/17 04/17/17 04/16/17 Range/Units 04:51 00:42 21:25 WBC (4.8-10.8) K/uL RBC (3.80-5.20) Mil/uL Hgb (11.0-16.0) g/dL Hct (34.0-47.0) % MCV (81.0-99.0) fL MCH (27.0-31.0) pg MCHC (33.0-37.0) g/dL RDW (11.5-14.5) % Plt Count (130-400) K/uL MPV (7.2-11.7) fL Neut % (Auto) (50.0-75.0) % Lymph % (Auto) (20.0-40.0) % Stewart % (Auto) (0.0-10.0) % Eos % (Auto) (0.0-4.0) % Baso % (Auto) (0.0-2.0) % Neut # (1.8-7.0) K/uL Lymph # (1.0-4.3) K/uL Stewart # (0.0-0.8) K/uL Eos # (0.0-0.7) K/uL Baso # (0.0-0.2) K/uL Neutrophils % (Manual) (50-75) % Band Neutrophils % (0-2) % Lymphocytes % (Manual) (20-40) % Monocytes % (Manual) (0-10) % Platelet Estimate (NORMAL) Anisocytosis (manual) Cavendish Cells APTT 153 H* D (21-34) SECONDS Sodium (132-148) mmol/L Potassium (3.6-5.2) mmol/L Chloride (98-107) mmol/L Carbon Dioxide (22-30) mmol/L Anion Gap (10-20) BUN (7-17) mg/dL Creatinine (0.7-1.2) mg/dL Est GFR ( Amer) Est GFR (Non-Af Amer) POC Glucose (mg/dL) 210 H 369 H (65-110) mg/dL Random Glucose (65-105) mg/dL Calcium (8.6-10.4) mg/dl Phosphorus (2.5-4.5) mg/dL Magnesium (1.6-2.3) mg/dL Total Bilirubin (0.2-1.3) mg/dL AST (14-36) U/L ALT (9-52) U/L Alkaline Phosphatase (38-126) U/L Total Protein (6.3-8.3) g/dL Albumin (3.5-5.0) g/dL Globulin (2.2-3.9) gm/dL Albumin/Globulin Ratio (1.0-2.1) 04/16/17 Range/Units 18:27 WBC (4.8-10.8) K/uL RBC (3.80-5.20) Mil/uL Hgb (11.0-16.0) g/dL Hct (34.0-47.0) % MCV (81.0-99.0) fL MCH (27.0-31.0) pg MCHC (33.0-37.0) g/dL RDW (11.5-14.5) % Plt Count (130-400) K/uL MPV (7.2-11.7) fL Neut % (Auto) (50.0-75.0) % Lymph % (Auto) (20.0-40.0) % Stewart % (Auto) (0.0-10.0) % Eos % (Auto) (0.0-4.0) % Baso % (Auto) (0.0-2.0) % Neut # (1.8-7.0) K/uL Lymph # (1.0-4.3) K/uL Stewart # (0.0-0.8) K/uL Eos # (0.0-0.7) K/uL Baso # (0.0-0.2) K/uL Neutrophils % (Manual) (50-75) % Band Neutrophils % (0-2) % Lymphocytes % (Manual) (20-40) % Monocytes % (Manual) (0-10) % Platelet Estimate (NORMAL) Anisocytosis (manual) Karen Cells APTT (21-34) SECONDS Sodium (132-148) mmol/L Potassium (3.6-5.2) mmol/L Chloride (98-107) mmol/L Carbon Dioxide (22-30) mmol/L Anion Gap (10-20) BUN (7-17) mg/dL Creatinine (0.7-1.2) mg/dL Est GFR ( Amer) Est GFR (Non-Af Amer) POC Glucose (mg/dL) 457 H* (65-110) mg/dL Random Glucose (65-105) mg/dL Calcium (8.6-10.4) mg/dl Phosphorus (2.5-4.5) mg/dL Magnesium (1.6-2.3) mg/dL Total Bilirubin (0.2-1.3) mg/dL AST (14-36) U/L ALT (9-52) U/L Alkaline Phosphatase (38-126) U/L Total Protein (6.3-8.3) g/dL Albumin (3.5-5.0) g/dL Globulin (2.2-3.9) gm/dL Albumin/Globulin Ratio (1.0-2.1) Laboratory Results - last 24 hr 04/16/17 04/16/17 04/17/17 18:27 21:25 00:42 WBC RBC Hgb Hct MCV MCH MCHC RDW Plt Count MPV Neut % (Auto) Lymph % (Auto) Stewart % (Auto) Eos % (Auto) Baso % (Auto) Neut # Lymph # Stewart # Eos # Baso # Neutrophils % (Manual) Band Neutrophils % Lymphocytes % (Manual) Monocytes % (Manual) Platelet Estimate Anisocytosis (manual) Cavendish Cells APTT 153 H* D Sodium Potassium Chloride Carbon Dioxide Anion Gap BUN Creatinine Est GFR ( Amer) Est GFR (Non-Af Amer) POC Glucose (mg/dL) 457 H* 369 H Random Glucose Calcium Phosphorus Magnesium Total Bilirubin AST ALT Alkaline Phosphatase Total Protein Albumin Globulin Albumin/Globulin Ratio 04/17/17 04/17/17 04/17/17 04:51 06:36 06:36 WBC 21.0 H RBC 3.80 Hgb 11.4 Hct 34.9 MCV 91.8 D MCH 30.0 MCHC 32.7 L RDW 18.6 H Plt Count 239 MPV 8.8 Neut % (Auto) 87.4 H Lymph % (Auto) 8.0 L Stewart % (Auto) 3.9 Eos % (Auto) 0.4 Baso % (Auto) 0.3 Neut # 18.3 H Lymph # 1.7 Stewart # 0.8 Eos # 0.1 Baso # 0.1 Neutrophils % (Manual) 81 H Band Neutrophils % 4 H Lymphocytes % (Manual) 11 L Monocytes % (Manual) 4 Platelet Estimate Normal Anisocytosis (manual) Slight Karen Cells Moderate APTT Sodium 128 L Potassium 2.9 L Chloride 94 L Carbon Dioxide 22 Anion Gap 14 BUN 24 H Creatinine 1.4 H Est GFR ( Amer) 45 Est GFR (Non-Af Amer) 37 POC Glucose (mg/dL) 210 H Random Glucose 184 H Calcium 6.9 L Phosphorus 3.0 Magnesium 1.7 Total Bilirubin 0.5 AST 18 ALT 32 Alkaline Phosphatase 256 H Total Protein 4.7 L Albumin 1.9 L Globulin 2.8 Albumin/Globulin Ratio 0.7 L 04/17/17 04/17/17 04/17/17 08:15 08:58 12:11 WBC RBC Hgb Hct MCV MCH MCHC RDW Plt Count MPV Neut % (Auto) Lymph % (Auto) Stewart % (Auto) Eos % (Auto) Baso % (Auto) Neut # Lymph # Stewart # Eos # Baso # Neutrophils % (Manual) Band Neutrophils % Lymphocytes % (Manual) Monocytes % (Manual) Platelet Estimate Anisocytosis (manual) Karen Cells APTT 41 H D Sodium Potassium Chloride Carbon Dioxide Anion Gap BUN Creatinine Est GFR ( Amer) Est GFR (Non-Af Amer) POC Glucose (mg/dL) 210 H 216 H Random Glucose Calcium Phosphorus Magnesium Total Bilirubin AST ALT Alkaline Phosphatase Total Protein Albumin Globulin Albumin/Globulin Ratio 04/17/17 16:08 WBC RBC Hgb Hct MCV MCH MCHC RDW Plt Count MPV Neut % (Auto) Lymph % (Auto) Stewart % (Auto) Eos % (Auto) Baso % (Auto) Neut # Lymph # Stewart # Eos # Baso # Neutrophils % (Manual) Band Neutrophils % Lymphocytes % (Manual) Monocytes % (Manual) Platelet Estimate Anisocytosis (manual) Cavendish Cells APTT Sodium Potassium Chloride Carbon Dioxide Anion Gap BUN Creatinine Est GFR ( Amer) Est GFR (Non-Af Amer) POC Glucose (mg/dL) 181 H Random Glucose Calcium Phosphorus Magnesium Total Bilirubin AST ALT Alkaline Phosphatase Total Protein Albumin Globulin Albumin/Globulin Ratio Fingerstick Blood Sugar Results: 216 Review of Systems - Review of Systems Systems not reviewed;Unavailable: Altered Mental Status Critical Care Progress Note - Nutrition Nutrition: Nutrition Category Date Time Status Pureed [Dysphagia/Modified Consistency Diet] [DIET] Diets 04/12/17 Dinner Active Assessment/Plan - Assessment and Plan (Free Text) Assessment: 71 year old female with PMHx ESRD (dialysis TTS), CHF, HTN, DM2, PVD, AMS, depression, anemia of chronic disease, chronic low back pain, glaucoma, and 12 days s/p BKA with RUE DVT Plan: Neuro: Altered mental status, etiology unknown. Respiratory: Chest CT angio: Filling defects are noted at both upper lobes pulmonary arteries suggestive of pulmonary embolus. Large bilateral pleural effusion. Mild cardiomegaly. [id number] pericardial effusion. [id number] anasarca. Lower lobe atelectasis due to pleural effusion. Hem: Discontinued Heparin drip Started on Eliquis 10mg PO [id number]; after 7 days decrease to 5mg PO daily Nephro: ESRD on hemodialysis Dr. Ambrose consulted, help appreciated Pt undergoes hemodialysis Tues/Thurs/Sat monitor CMPs+magnesium and phsophorous daily PICC line inserted by IR 03/23/17 - DVT in R upper extremity Ergocalcierol 1 capsule PO Q7D Procrit Cardio: hx of diastolic CHF MAP >65, EF61% would benefit from cardio f/u Lasix 40mg PO daily MSK: General Surgery Consult, Dr. Broussard, help appreciated s/p BKA POD #18 f/u surgery recs Santyl for sacral decub ID: [id number] Infectious Disease, Dr. Wellington consulted, help appreciated abx per ID Gentamicin 80mg IVPB MWF Zosyn 2.25gm IVPB Q8h Zyvox 600mg IVPB Q12h Prophylactic Care: DVT: Eliquis 10mg PO [id number]; after 7 days decrease to 5mg PO daily GI: Protonix 40mg PO daily Stable. Downgrade to telemetry. Case discussed with Dr. Rick Dinh PGY1 <Lulu Cabrera M - Last Filed: 04/18/17 06:50> CCU Objective - Vital Signs / Intake & Output Vital Signs (Last 4 hours): Vital Signs Temp Pulse Resp BP Pulse Ox 04/18/17 06:00 96 H 23 99 04/18/17 05:50 99 H 18 98 04/18/17 05:40 106 H 99 04/18/17 05:30 100 H 30 H 99 04/18/17 05:20 100 H 27 H 100 04/18/17 05:18 101 H 28 H 221/66 H 100 04/18/17 05:10 105 H 20 99 04/18/17 05:00 101 H 25 H 99 04/18/17 04:55 103 H 30 H 208/67 H 96 04/18/17 04:53 101 H 29 H 197/66 H 91 L 04/18/17 04:50 100 H 24 92 L 04/18/17 04:40 101 H 26 H 91 L 04/18/17 04:35 103 H 29 H 192/63 H 96 04/18/17 04:30 97 H 26 H 93 L 04/18/17 04:20 101 H 29 H 96 04/18/17 04:18 99 H 27 H 183/60 H 94 L 04/18/17 04:10 98 H 32 H 95 04/18/17 04:00 98.5 F 96 H 22 95 04/18/17 03:50 98 H 31 H 93 L 04/18/17 03:40 94 H 24 94 L 04/18/17 03:30 97 H 25 H 95 04/18/17 03:20 94 H 22 100 04/18/17 03:17 97 H 27 H 173/65 H 99 04/18/17 03:10 94 H 27 H 99 04/18/17 03:00 92 H 22 100 04/18/17 02:50 94 H 26 H 100 Intake and Output (Last 8hrs): Intake & Output 04/17/17 04/17/17 04/18/17 14:59 22:59 06:59 Intake Total 718.2 700 700 Output Total 20 10 100 Balance 698.2 690 600 Weight 140 lb Intake: Intake, IV Amount 318.2 250 400 PICC 259.7 250 PICC 2 58.5 Right Antecubital 400 Oral 400 450 300 Output: Urine 20 10 100 Urethral (Hurst) 20 10 100 Other: # Bowel Movements 1 1 2 - Medications Active Medications: Active Medications Generic Name Dose Route Start Last Admin Trade Name Freq PRN Reason Stop Dose Admin Acetaminophen 650 mg 04/11/17 22:25 Tylenol 325mg Tab PO Q6 PRN Pain, moderate (4-7) Apixaban 10 mg 04/17/17 18:00 04/17/17 17:58 Eliquis PO 04/20/17 18:01 10 mg BID ELINA Administration Apixaban 5 mg 04/24/17 10:00 Eliquis PO BID ELINA Brimonidine Tartrate 1 ml 04/12/17 10:00 04/17/17 18:04 Alphagan 0.2% Opht OU 1 drop TID ELINA Administration Collagenase 1 gm 04/15/17 18:00 04/17/17 18:12 Santyl TOP 1 cre BID ELINA Administration Epoetin Maxwell 10,000 unit 04/13/17 11:56 04/17/17 16:50 Procrit IV 04/22/17 09:01 Not Given MWF [facility] Ergocalciferol 1 cap 04/11/17 22:30 04/12/17 00:14 Drisdol 50,000 Intl Units Cap PO Not Given Q7D [facility] Ferric Sodium Gluconate Complex 125 mg 04/13/17 09:00 04/17/17 17:29 Ferrlecit IVPB 04/22/17 09:01 Not Given MWF [facility] Furosemide 40 mg 04/12/17 10:00 04/17/17 10:00 Lasix PO Not Given DAILY [facility] Hydralazine HCl 25 mg 04/12/17 10:00 04/17/17 17:57 Apresoline PO 25 mg BID ELINA Administration Hydromorphone HCl 0.5 mg 04/11/17 22:25 Dilaudid IVP Q4H PRN Pain, severe (8-10) Dextrose/Sodium Chloride 1,000 mls @ 60 mls/hr 04/12/17 11:00 04/12/17 13:19 Dextrose 5%/0.45% Ns 1000 Ml IV 60 mls/hr .[id number] ELINA Administration Gentamicin Sulfate/Sodium Chloride 80 mg in 100 mls @ 100 mls/hr 04/13/17 09: 00 04/17/17 17:29 Gentamicin Iv 80 Mg Premix IVPB Not Given MWF [facility] Piperacillin Sod/Tazobactam Sod 2.25 gm in 50 mls @ 200 mls/hr 04/13/17 14:00 04/18/17 05:27 Zosyn 2.25 Gm Iv Premix IVPB 200 mls/hr Q8 ELINA Administration Linezolid 600 mg in 300 mls @ 200 mls/hr 04/14/17 12:00 04/17/17 23:47 Zyvox 600mg/300ml D5w IVPB 200 mls/hr Q12H ELINA Administration Insulin Glargine 30 unit 04/16/17 22:00 04/17/17 21:52 Lantus SC 10 u HS ELINA Administration Insulin Human Regular 0 unit 04/12/17 07:30 04/17/17 22:19 Novolin R SC Not Given ACHS [facility] Protocol Latanoprost 0.02 ml 04/12/17 22:00 04/17/17 22:24 Xalatan Opht OU 0.02 ml HS ELINA Administration Pantoprazole Sodium 40 mg 04/18/17 10:00 Protonix Susp PO DAILY ELINA Rosuvastatin Calcium 10 mg 04/12/17 22:00 04/17/17 21:52 Crestor PO 10 mg HS ELINA Administration Thiamine HCl 100 mg 04/11/17 22:30 04/18/17 05:30 Vitamin B1 Inj IV 100 mg Q8H ELINA Administration Timolol Maleate 1 drop 04/12/17 10:00 04/17/17 18:12 Timoptic 0.5% Ophth Soln OU 1 drop BID ELINA Administration Vitamin B Complex/Vit C/Folic Acid 1 tab 04/12/17 08:00 04/17/17 12:39 Nephro-Alonzo PO 1 tab 0800 ELINA Administration - Patient Studies Lab Studies: Microbiology Studies 04/16/17 Unknown MRSA Culture (Admit) - Final Nose MRSA NOT DETECTED 04/16/17 15:30 Blood Culture - Preliminary Blood-Venous NO GROWTH AFTER 24 HOURS 04/16/17 10:50 Blood Culture - Preliminary Blood-Venous NO GROWTH AFTER 24 HOURS Lab Studies 11/25/17 11/25/17 11/24/17 Range/Units 06:18 05:46 21:14 WBC (4.8-10.8) K/uL RBC (3.80-5.20) Mil/uL Hgb (11.0-16.0) g/dL Hct (34.0-47.0) % MCV (81.0-99.0) fL MCH (27.0-31.0) pg MCHC (33.0-37.0) g/dL RDW (11.5-14.5) % Plt Count (130-400) K/uL MPV (7.2-11.7) fL Neut % (Auto) (50.0-75.0) % Lymph % (Auto) (20.0-40.0) % Stewart % (Auto) (0.0-10.0) % Eos % (Auto) (0.0-4.0) % Baso % (Auto) (0.0-2.0) % Neut # (1.8-7.0) K/uL Lymph # (1.0-4.3) K/uL Stewart # (0.0-0.8) K/uL Eos # (0.0-0.7) K/uL Baso # (0.0-0.2) K/uL Neutrophils % (Manual) (50-75) % Band Neutrophils % (0-2) % Lymphocytes % (Manual) (20-40) % Monocytes % (Manual) (0-10) % Platelet Estimate (NORMAL) Anisocytosis (manual) Cavendish Cells APTT (21-34) SECONDS Sodium (132-148) mmol/L Potassium (3.6-5.2) mmol/L Chloride (98-107) mmol/L Carbon Dioxide (22-30) mmol/L Anion Gap (10-20) BUN (7-17) mg/dL Creatinine (0.7-1.2) mg/dL Est GFR ( Amer) Est GFR (Non-Af Amer) POC Glucose (mg/dL) 106 < 20 L* 144 H (65-110) mg/dL Random Glucose (65-105) mg/dL Calcium (8.6-10.4) mg/dl Phosphorus (2.5-4.5) mg/dL Magnesium (1.6-2.3) mg/dL Total Bilirubin (0.2-1.3) mg/dL AST (14-36) U/L ALT (9-52) U/L Alkaline Phosphatase (38-126) U/L Total Protein (6.3-8.3) g/dL Albumin (3.5-5.0) g/dL Globulin (2.2-3.9) gm/dL Albumin/Globulin Ratio (1.0-2.1) 04/17/17 04/17/17 04/17/17 Range/Units 16:08 12:11 08:58 WBC (4.8-10.8) K/uL RBC (3.80-5.20) Mil/uL Hgb (11.0-16.0) g/dL Hct (34.0-47.0) % MCV (81.0-99.0) fL MCH (27.0-31.0) pg MCHC (33.0-37.0) g/dL RDW (11.5-14.5) % Plt Count (130-400) K/uL MPV (7.2-11.7) fL Neut % (Auto) (50.0-75.0) % Lymph % (Auto) (20.0-40.0) % Stewart % (Auto) (0.0-10.0) % Eos % (Auto) (0.0-4.0) % Baso % (Auto) (0.0-2.0) % Neut # (1.8-7.0) K/uL Lymph # (1.0-4.3) K/uL Stewart # (0.0-0.8) K/uL Eos # (0.0-0.7) K/uL Baso # (0.0-0.2) K/uL Neutrophils % (Manual) (50-75) % Band Neutrophils % (0-2) % Lymphocytes % (Manual) (20-40) % Monocytes % (Manual) (0-10) % Platelet Estimate (NORMAL) Anisocytosis (manual) [place] Cells APTT 41 H D (21-34) SECONDS Sodium (132-148) mmol/L Potassium (3.6-5.2) mmol/L Chloride (98-107) mmol/L Carbon Dioxide (22-30) mmol/L Anion Gap (10-20) BUN (7-17) mg/dL Creatinine (0.7-1.2) mg/dL Est GFR ( Amer) Est GFR (Non-Af Amer) POC Glucose (mg/dL) 181 H 216 H (65-110) mg/dL Random Glucose (65-105) mg/dL Calcium (8.6-10.4) mg/dl Phosphorus (2.5-4.5) mg/dL Magnesium (1.6-2.3) mg/dL Total Bilirubin (0.2-1.3) mg/dL AST (14-36) U/L ALT (9-52) U/L Alkaline Phosphatase (38-126) U/L Total Protein (6.3-8.3) g/dL Albumin (3.5-5.0) g/dL Globulin (2.2-3.9) gm/dL Albumin/Globulin Ratio (1.0-2.1) 04/17/17 04/17/17 04/17/17 Range/Units 08:15 06:36 06:36 WBC 21.0 H (4.8-10.8) K/uL RBC 3.80 (3.80-5.20) Mil/uL Hgb 11.4 (11.0-16.0) g/dL Hct 34.9 (34.0-47.0) % MCV 91.8 D (81.0-99.0) fL MCH 30.0 (27.0-31.0) pg MCHC 32.7 L (33.0-37.0) g/dL RDW 18.6 H (11.5-14.5) % Plt Count 239 (130-400) K/uL MPV 8.8 (7.2-11.7) fL Neut % (Auto) 87.4 H (50.0-75.0) % Lymph % (Auto) 8.0 L (20.0-40.0) % Stewart % (Auto) 3.9 (0.0-10.0) % Eos % (Auto) 0.4 (0.0-4.0) % Baso % (Auto) 0.3 (0.0-2.0) % Neut # 18.3 H (1.8-7.0) K/uL Lymph # 1.7 (1.0-4.3) K/uL Stewart # 0.8 (0.0-0.8) K/uL Eos # 0.1 (0.0-0.7) K/uL Baso # 0.1 (0.0-0.2) K/uL Neutrophils % (Manual) 81 H (50-75) % Band Neutrophils % 4 H (0-2) % Lymphocytes % (Manual) 11 L (20-40) % Monocytes % (Manual) 4 (0-10) % Platelet Estimate Normal (NORMAL) Anisocytosis (manual) Slight Karen Cells Moderate APTT (21-34) SECONDS Sodium 128 L (132-148) mmol/L Potassium 2.9 L (3.6-5.2) mmol/L Chloride 94 L (98-107) mmol/L Carbon Dioxide 22 (22-30) mmol/L Anion Gap 14 (10-20) BUN 24 H (7-17) mg/dL Creatinine 1.4 H (0.7-1.2) mg/dL Est GFR ( Amer) 45 Est GFR (Non-Af Amer) 37 POC Glucose (mg/dL) 210 H (65-110) mg/dL Random Glucose 184 H (65-105) mg/dL Calcium 6.9 L (8.6-10.4) mg/dl Phosphorus 3.0 (2.5-4.5) mg/dL Magnesium 1.7 (1.6-2.3) mg/dL Total Bilirubin 0.5 (0.2-1.3) mg/dL AST 18 (14-36) U/L ALT 32 (9-52) U/L Alkaline Phosphatase 256 H (38-126) U/L Total Protein 4.7 L (6.3-8.3) g/dL Albumin 1.9 L (3.5-5.0) g/dL Globulin 2.8 (2.2-3.9) gm/dL Albumin/Globulin Ratio 0.7 L (1.0-2.1) Laboratory Results - last 24 hr 04/17/17 04/17/17 04/17/17 06:36 06:36 08:15 WBC 21.0 H RBC 3.80 Hgb 11.4 Hct 34.9 MCV 91.8 D MCH 30.0 MCHC 32.7 L RDW 18.6 H Plt Count 239 MPV 8.8 Neut % (Auto) 87.4 H Lymph % (Auto) 8.0 L Stewart % (Auto) 3.9 Eos % (Auto) 0.4 Baso % (Auto) 0.3 Neut # 18.3 H Lymph # 1.7 Stewart # 0.8 Eos # 0.1 Baso # 0.1 Neutrophils % (Manual) 81 H Band Neutrophils % 4 H Lymphocytes % (Manual) 11 L Monocytes % (Manual) 4 Platelet Estimate Normal Anisocytosis (manual) Slight Karen Cells Moderate APTT Sodium 128 L Potassium 2.9 L Chloride 94 L Carbon Dioxide 22 Anion Gap 14 BUN 24 H Creatinine 1.4 H Est GFR ( Amer) 45 Est GFR (Non-Af Amer) 37 POC Glucose (mg/dL) 210 H Random Glucose 184 H Calcium 6.9 L Phosphorus 3.0 Magnesium 1.7 Total Bilirubin 0.5 AST 18 ALT 32 Alkaline Phosphatase 256 H Total Protein 4.7 L Albumin 1.9 L Globulin 2.8 Albumin/Globulin Ratio 0.7 L 04/17/17 04/17/17 04/17/17 08:58 12:11 16:08 WBC RBC Hgb Hct MCV MCH MCHC RDW Plt Count MPV Neut % (Auto) Lymph % (Auto) Stewart % (Auto) Eos % (Auto) Baso % (Auto) Neut # Lymph # Stewart # Eos # Baso # Neutrophils % (Manual) Band Neutrophils % Lymphocytes % (Manual) Monocytes % (Manual) Platelet Estimate Anisocytosis (manual) Karen Cells APTT 41 H D Sodium Potassium Chloride Carbon Dioxide Anion Gap BUN Creatinine Est GFR ( Amer) Est GFR (Non-Af Amer) POC Glucose (mg/dL) 216 H 181 H Random Glucose Calcium Phosphorus Magnesium Total Bilirubin AST ALT Alkaline Phosphatase Total Protein Albumin Globulin Albumin/Globulin Ratio 04/17/17 04/18/17 04/18/17 21:14 05:46 06:18 WBC RBC Hgb Hct MCV MCH MCHC RDW Plt Count MPV Neut % (Auto) Lymph % (Auto) Stewart % (Auto) Eos % (Auto) Baso % (Auto) Neut # Lymph # Stewart # Eos # Baso # Neutrophils % (Manual) Band Neutrophils % Lymphocytes % (Manual) Monocytes % (Manual) Platelet Estimate Anisocytosis (manual) Cavendish Cells APTT Sodium Potassium Chloride Carbon Dioxide Anion Gap BUN Creatinine Est GFR ( Amer) Est GFR (Non-Af Amer) POC Glucose (mg/dL) 144 H < 20 L* 106 Random Glucose Calcium Phosphorus Magnesium Total Bilirubin AST ALT Alkaline Phosphatase Total Protein Albumin Globulin Albumin/Globulin Ratio Critical Care Progress Note - Nutrition Nutrition: Nutrition Category Date Time Status Pureed [Dysphagia/Modified Consistency Diet] [DIET] Diets 04/12/17 Dinner Active Assessment/Plan - Assessment and Plan (Free Text) Plan: Patient seen and examiend with above resident. Patient remains hemodynamically stable. -Above resident has doumented my clinical findings and my management. Patient's mental status has returned to baseline as per . -PE: Patient will benefit from oral epiquis for PE rx. -monitor for bleeding -contineu HD as per renal 3x/week -Patient remains hemodynamically stable.
--- NOTE | 2017-04-17 19:10 | CP.PCM.PN ---
Subjective - Date & Time of Evaluation Date of Evaluation: 04/17/17 Time of Evaluation: 07:00 - Subjective Subjective: EVENTS NOTED IV RX RENEWED DISCUSSED WITH DR MCLAUGHLIN Objective - Vital Signs/Intake and Output Vital Signs (last 24 hours): Temp Pulse Resp BP Pulse Ox 99.0 F 97 H 29 H 143/46 L 100 04/17/17 16:00 04/17/17 18:18 04/17/17 18:18 04/17/17 18:18 04/17/17 18:18 Intake and Output: 04/17/17 04/18/17 18:59 06:59 Intake Total 1418.2 Output Total 30 Balance 1388.2 - Medications Medications: Current Medications Acetaminophen (Tylenol 325mg Tab) 650 mg PO Q6 PRN PRN Reason: Pain, moderate (4-7) Apixaban (Eliquis) 10 mg PO BID [facility] Stop: 04/20/17 18:01 Last Admin: 04/17/17 17:58 Dose: 10 mg Apixaban (Eliquis) 5 mg PO BID [facility] Brimonidine Tartrate (Alphagan 0.2% Opht) 1 ml OU TID [facility] Last Admin: 04/17/17 18:04 Dose: 1 drop Collagenase (Santyl) 1 gm TOP BID [facility] Last Admin: 04/17/17 18:12 Dose: 1 cre Epoetin Maxwell (Procrit) 10,000 unit IV [facility] Stop: 04/22/17 09:01 Last Admin: 04/17/17 16:50 Dose: Not Given Ergocalciferol (Drisdol 50,000 Intl Units Cap) 1 cap PO Q7D [facility] Last Admin: 04/12/17 00:14 Dose: Not Given Ferric Sodium Gluconate Complex (Ferrlecit) 125 mg IVPB [facility] Stop: 04/22/17 09:01 Last Admin: 04/17/17 17:29 Dose: Not Given Furosemide (Lasix) 40 mg PO DAILY [facility] Last Admin: 04/17/17 10:00 Dose: Not Given Hydralazine HCl (Apresoline) 25 mg PO BID [facility] Last Admin: 04/17/17 17:57 Dose: 25 mg Hydromorphone HCl (Dilaudid) 0.5 mg IVP Q4H PRN PRN Reason: Pain, severe (8-10) Dextrose/Sodium Chloride (Dextrose 5%/0.45% Ns 1000 Ml) 1,000 mls @ 60 mls/hr IV .[id number] [facility] Last Admin: 04/12/17 13:19 Dose: 60 mls/hr Gentamicin Sulfate/Sodium Chloride (Gentamicin Iv 80 Mg Premix) 80 mg in 100 mls @ 100 mls/hr IVPB MWF [facility] Last Admin: 04/17/17 17:29 Dose: Not Given Piperacillin Sod/Tazobactam Sod (Zosyn 2.25 Gm Iv Premix) 2.25 gm in 50 mls @ 200 mls/hr IVPB Q8 [facility] Last Admin: 04/17/17 15:00 Dose: 200 mls/hr Linezolid (Zyvox 600mg/300ml D5w) 600 mg in 300 mls @ 200 mls/hr IVPB Q12H [facility] Last Admin: 04/17/17 14:00 Dose: 200 mls/hr Insulin Glargine (Lantus) 30 unit SC [facility] Last Admin: 04/16/17 21:34 Dose: 30 u Insulin Human Regular (Novolin R) 0 unit SC [facility] PRN Reason: Protocol Last Admin: 04/17/17 18:04 Dose: 2 unit Latanoprost (Xalatan Opht) 0.02 ml OU [facility] Last Admin: 04/16/17 21:33 Dose: 0.02 ml Pantoprazole Sodium (Protonix Susp) 40 mg PO DAILY [facility] Rosuvastatin Calcium (Crestor) 10 mg PO HS [facility] Last Admin: 04/16/17 21:42 Dose: Not Given Thiamine HCl (Vitamin B1 Inj) 100 mg IV Q8H [facility] Last Admin: 04/17/17 14:41 Dose: 100 mg Timolol Maleate (Timoptic 0.5% Ophth Soln) 1 drop OU BID [facility] Last Admin: 04/17/17 18:12 Dose: 1 drop Vitamin B Complex/Vit C/Folic Acid (Nephro-Alonzo) 1 tab PO 0800 [facility] Last Admin: 04/17/17 12:39 Dose: 1 tab - Labs Labs: 04/17/17 06:36 04/17/17 06:36 PT 11.7 SECONDS (9.7-12.2) 04/11/17 18:55 INR 1.0 04/11/17 18:55 APTT 41 SECONDS (21-34) H D 04/17/17 08:58 - Constitutional Appears: Confused, Chronically Ill - Head Exam Head Exam: NORMOCEPHALIC - Eye Exam Eye Exam: absent: Scleral icterus - ENT Exam ENT Exam: Mucous Membranes Dry - Neck Exam Neck Exam: absent: Lymphadenopathy - Respiratory Exam Respiratory Exam: Decreased Breath Sounds - Cardiovascular Exam Cardiovascular Exam: REGULAR RHYTHM - GI/Abdominal Exam GI & Abdominal Exam: Distended, Soft Assessment and Plan (1) Elevated WBC count Status: Acute (2) S/P BKA (below knee amputation) Status: Acute (3) Sacral decubitus ulcer, stage III Status: Acute (4) Sepsis Status: Acute
[2017-04-17] MEDS: (Lantus) Insulin Glargine, Recombinant SC SCH ×2 (21:52→22:00)
[2017-04-17] MEDS: Latanoprost 2.5 ml Opht Soln OU SCH (22:24)
[2017-04-18] MEDS: Piperacill/Tazo 2.25gm in Dex 2.25 GM/50 ML BAG IVPB SCH ×3 (05:27→21:33)
[2017-04-18] MEDS: Thiamine 100 mg/ml Inj IV SCH ×4 (05:30→21:33)
[2017-04-18] MEDS ORDERED: Dextrose 50% SYRINGE Inj (50 ml) IV STA (05:45)
[2017-04-18] MEDS: Dextrose 50% VIAL Inj (50 ml) IV ONE ×3 (08:10→16:00)
[2017-04-18] MEDS ORDERED: Dextrose 5%/0.9% NS 1,000 ML IV SCH ×2 (08:15→16:06)
[2017-04-18] MEDS ORDERED: Dextrose 50% SYRINGE Inj (50 ml) ONE ×2 (08:17→16:02)
--- NOTE | 2017-04-18 08:18 | CP.PCM.PN ---
Subjective - Date & Time of Evaluation Date of Evaluation: 04/18/17 Time of Evaluation: 08:18 - Subjective Subjective: Patient's BS in AM <50 d50 pushed. d5NS started at 42 ml/hr. Patient awake alert, responsive. -Poor appetite as per nursing Objective - Vital Signs/Intake and Output Vital Signs (last 24 hours): Temp Pulse Resp BP Pulse Ox 98.5 F 96 H 23 221/66 H 99 04/18/17 04:00 04/18/17 06:00 04/18/17 06:00 04/18/17 05:18 04/18/17 06:00 Intake and Output: 04/18/17 04/18/17 06:59 18:59 Intake Total 700 Output Total 100 Balance 600 - Medications Medications: Current Medications Acetaminophen (Tylenol 325mg Tab) 650 mg PO Q6 PRN PRN Reason: Pain, moderate (4-7) Apixaban (Eliquis) 10 mg PO BID [facility] Stop: 04/20/17 18:01 Last Admin: 04/17/17 17:58 Dose: 10 mg Apixaban (Eliquis) 5 mg PO BID [facility] Brimonidine Tartrate (Alphagan 0.2% Opht) 1 ml OU TID [facility] Last Admin: 04/17/17 18:04 Dose: 1 drop Collagenase (Santyl) 1 gm TOP BID [facility] Last Admin: 04/17/17 18:12 Dose: 1 cre Dextrose (Dextrose 50% Inj) 25 ml IV [facility] Stop: 04/18/17 08:10 Epoetin Maxwell (Procrit) 10,000 unit IV [facility] Stop: 04/22/17 09:01 Last Admin: 04/17/17 16:50 Dose: Not Given Ergocalciferol (Drisdol 50,000 Intl Units Cap) 1 cap PO Q7D [facility] Last Admin: 04/12/17 00:14 Dose: Not Given Ferric Sodium Gluconate Complex (Ferrlecit) 125 mg IVPB [facility] Stop: 04/22/17 09:01 Last Admin: 04/17/17 17:29 Dose: Not Given Furosemide (Lasix) 40 mg PO DAILY [facility] Last Admin: 04/17/17 10:00 Dose: Not Given Hydralazine HCl (Apresoline) 25 mg PO BID [facility] Last Admin: 04/17/17 17:57 Dose: 25 mg Hydromorphone HCl (Dilaudid) 0.5 mg IVP Q4H PRN PRN Reason: Pain, severe (8-10) Dextrose/Sodium Chloride (Dextrose 5%/0.45% Ns 1000 Ml) 1,000 mls @ 60 mls/hr IV .[id number] [facility] Last Admin: 04/12/17 13:19 Dose: 60 mls/hr Gentamicin Sulfate/Sodium Chloride (Gentamicin Iv 80 Mg Premix) 80 mg in 100 mls @ 100 mls/hr IVPB MWF [facility] Last Admin: 04/17/17 17:29 Dose: Not Given Piperacillin Sod/Tazobactam Sod (Zosyn 2.25 Gm Iv Premix) 2.25 gm in 50 mls @ 200 mls/hr IVPB Q8 [facility] Last Admin: 04/18/17 05:27 Dose: 200 mls/hr Linezolid (Zyvox 600mg/300ml D5w) 600 mg in 300 mls @ 200 mls/hr IVPB Q12H [facility] Last Admin: 04/17/17 23:47 Dose: 200 mls/hr Dextrose/Sodium Chloride (Dextrose 5%/0.9% Ns 1000 Ml) 1,000 mls @ 42 mls/hr IV .[id number] [facility] Insulin Glargine (Lantus) 15 unit SC HS [facility] Insulin Human Regular (Novolin R) 0 unit SC [facility] PRN Reason: Protocol Last Admin: 04/17/17 22:19 Dose: Not Given Latanoprost (Xalatan Opht) 0.02 ml OU HS [facility] Last Admin: 04/17/17 22:24 Dose: 0.02 ml Pantoprazole Sodium (Protonix Susp) 40 mg PO DAILY [facility] Rosuvastatin Calcium (Crestor) 10 mg PO HS [facility] Last Admin: 04/17/17 21:52 Dose: 10 mg Thiamine HCl (Vitamin B1 Inj) 100 mg IV Q8H [facility] Last Admin: 04/18/17 05:30 Dose: 100 mg Timolol Maleate (Timoptic 0.5% Ophth Soln) 1 drop OU BID [facility] Last Admin: 04/17/17 18:12 Dose: 1 drop Vitamin B Complex/Vit C/Folic Acid (Nephro-Alonzo) 1 tab PO 0800 [facility] Last Admin: 04/17/17 12:39 Dose: 1 tab - Labs Labs: 04/17/17 06:36 04/17/17 06:36 PT 11.7 SECONDS (9.7-12.2) 04/11/17 18:55 INR 1.0 04/11/17 18:55 APTT 41 SECONDS (21-34) H D 04/17/17 08:58 - Constitutional Appears: No Acute Distress - Neurological Exam Neurological Exam: Alert, Awake
[2017-04-18] MEDS ORDERED: Dextrose 50% SYRINGE Inj (50 ml) IV ONE (08:30)
--- NOTE | 2017-04-18 08:38 | CP.PCM.PN ---
Subjective - Date & Time of Evaluation Date of Evaluation: 04/18/17 Time of Evaluation: 06:00 - Subjective Subjective: Vascular Surgery- Dr. Broussard Pt seen and examined at bedside this AM. No acute events overnight. patient more responsive. Awake and alert to person and place. Denies fevers, chills, chest pain, shortness of breath, nausea, vomiting. L BKA stump dressing changed at bedside w/ santyl. C/D/I no strikethrough Objective - Vital Signs/Intake and Output Vital Signs (last 24 hours): Temp Pulse Resp BP Pulse Ox 98.5 F 96 H 23 221/66 H 99 04/18/17 04:00 04/18/17 06:00 04/18/17 06:00 04/18/17 05:18 04/18/17 06:00 Intake and Output: 04/18/17 04/18/17 06:59 18:59 Intake Total 700 Output Total 100 Balance 600 - Medications Medications: Current Medications Acetaminophen (Tylenol 325mg Tab) 650 mg PO Q6 PRN PRN Reason: Pain, moderate (4-7) Apixaban (Eliquis) 10 mg PO BID [facility] Stop: 04/20/17 18:01 Last Admin: 04/17/17 17:58 Dose: 10 mg Apixaban (Eliquis) 5 mg PO BID [facility] Brimonidine Tartrate (Alphagan 0.2% Opht) 1 ml OU TID [facility] Last Admin: 04/17/17 18:04 Dose: 1 drop Collagenase (Santyl) 1 gm TOP BID [facility] Last Admin: 04/17/17 18:12 Dose: 1 cre Epoetin Maxwell (Procrit) 10,000 unit IV [facility] Stop: 04/22/17 09:01 Last Admin: 04/17/17 16:50 Dose: Not Given Ergocalciferol (Drisdol 50,000 Intl Units Cap) 1 cap PO Q7D [facility] Last Admin: 04/12/17 00:14 Dose: Not Given Ferric Sodium Gluconate Complex (Ferrlecit) 125 mg IVPB [facility] Stop: 04/22/17 09:01 Last Admin: 04/17/17 17:29 Dose: Not Given Furosemide (Lasix) 40 mg PO DAILY [facility] Last Admin: 04/17/17 10:00 Dose: Not Given Hydralazine HCl (Apresoline) 25 mg PO BID [facility] Last Admin: 04/17/17 17:57 Dose: 25 mg Hydromorphone HCl (Dilaudid) 0.5 mg IVP Q4H PRN PRN Reason: Pain, severe (8-10) Dextrose/Sodium Chloride (Dextrose 5%/0.45% Ns 1000 Ml) 1,000 mls @ 60 mls/hr IV .[id number] [facility] Last Admin: 04/12/17 13:19 Dose: 60 mls/hr Gentamicin Sulfate/Sodium Chloride (Gentamicin Iv 80 Mg Premix) 80 mg in 100 mls @ 100 mls/hr IVPB MWF [facility] Last Admin: 04/17/17 17:29 Dose: Not Given Piperacillin Sod/Tazobactam Sod (Zosyn 2.25 Gm Iv Premix) 2.25 gm in 50 mls @ 200 mls/hr IVPB Q8 [facility] Last Admin: 04/18/17 05:27 Dose: 200 mls/hr Linezolid (Zyvox 600mg/300ml D5w) 600 mg in 300 mls @ 200 mls/hr IVPB Q12H [facility] Last Admin: 04/17/17 23:47 Dose: 200 mls/hr Dextrose/Sodium Chloride (Dextrose 5%/0.9% Ns 1000 Ml) 1,000 mls @ 42 mls/hr IV .[id number] [facility] Insulin Glargine (Lantus) 15 unit SC HS [facility] Insulin Human Regular (Novolin R) 0 unit SC [facility] PRN Reason: Protocol Last Admin: 04/17/17 22:19 Dose: Not Given Latanoprost (Xalatan Opht) 0.02 ml OU HS [facility] Last Admin: 04/17/17 22:24 Dose: 0.02 ml Pantoprazole Sodium (Protonix Susp) 40 mg PO DAILY [facility] Rosuvastatin Calcium (Crestor) 10 mg PO HS [facility] Last Admin: 04/17/17 21:52 Dose: 10 mg Thiamine HCl (Vitamin B1 Inj) 100 mg IV Q8H [facility] Last Admin: 04/18/17 05:30 Dose: 100 mg Timolol Maleate (Timoptic 0.5% Ophth Soln) 1 drop OU BID [facility] Last Admin: 04/17/17 18:12 Dose: 1 drop Vitamin B Complex/Vit C/Folic Acid (Nephro-Alonzo) 1 tab PO 0800 [facility] Last Admin: 04/17/17 12:39 Dose: 1 tab - Labs Labs: 04/17/17 06:36 04/17/17 06:36 PT 11.7 SECONDS (9.7-12.2) 04/11/17 18:55 INR 1.0 04/11/17 18:55 APTT 41 SECONDS (21-34) H D 04/17/17 08:58 - Constitutional Appears: Non-toxic, No Acute Distress - Head Exam Head Exam: ATRAUMATIC - Eye Exam Eye Exam: absent: Scleral icterus - ENT Exam ENT Exam: Mucous Membranes Moist - Respiratory Exam Respiratory Exam: NORMAL BREATHING PATTERN. absent: Accessory Muscle Use, Respiratory Distress - Cardiovascular Exam Cardiovascular Exam: +S1, +S2. absent: Bradycardia, Tachycardia - GI/Abdominal Exam GI & Abdominal Exam: Soft. absent: Distended, Guarding, Rigid, Tenderness - Extremities Exam Extremities Exam: absent: Calf Tenderness Additional comments: L BKA stump dressing C/D/I - Neurological Exam Neurological Exam: Alert, Awake - Skin Skin Exam: Intact, Warm Assessment and Plan - Assessment and Plan (Free Text) Assessment: 71F s/p Left BKA hospitalized for DVT RUE w/ PICC - Local wound care BID w/ santyl of left lower extremity; jay and sutures remain in place for now - Heparin Drip D/C eloquis started - medical management per ICU team - no acute surgical intervention at this time - discussed w/ Dr. Bobo Sandhu PGY1
[2017-04-18] MEDS: (Novolin R) Insulin Human Regular 100 units/ml vial SC SCH ×4 (09:03→22:03)
[2017-04-18] MEDS: Pantoprazole 40 mg Susp UD PO SCH (09:13)
[2017-04-18] MEDS: Multivitamin Vitamin B Complex (Nephro-Vite) Tab PO SCH (09:25)
[2017-04-18] MEDS: Brimonidine 0.2% Opth Sol (5ml) OU SCH ×3 (10:36→17:04)
[2017-04-18] MEDS: Collagenase 250 Units/gm Ointment(30 gm) TOP SCH ×2 (10:38→17:02)
[2017-04-18] MEDS: Linezolid 600 mg in D5W 300 ml 600 MG/300 ML BAG IVPB SCH (11:22)
--- NOTE | 2017-04-18 11:44 | CP.PCM.PN ---
Subjective - Date & Time of Evaluation Date of Evaluation: 04/18/17 Time of Evaluation: 11:45 - Subjective Subjective: PGY2 Note for Dr. Myrick patient seen and examined at bedside with attending physician. Patient is unable to provide subjective history portion of exam. Objective - Vital Signs/Intake and Output Vital Signs (last 24 hours): Temp Pulse Resp BP Pulse Ox 97.9 F 87 15 133/60 100 04/18/17 09:11 04/18/17 10:30 04/18/17 10:30 04/18/17 09:12 04/18/17 10:30 Intake and Output: 04/18/17 04/18/17 06:59 18:59 Intake Total 700 Output Total 100 Balance 600 - Medications Medications: Current Medications Acetaminophen (Tylenol 325mg Tab) 650 mg PO Q6 PRN PRN Reason: Pain, moderate (4-7) Last Admin: 04/18/17 09:11 Dose: 650 mg Apixaban (Eliquis) 10 mg PO BID [facility] Stop: 04/20/17 18:01 Last Admin: 04/18/17 09:30 Dose: 10 mg Apixaban (Eliquis) 5 mg PO BID [facility] Brimonidine Tartrate (Alphagan 0.2% Opht) 1 ml OU TID [facility] Last Admin: 04/18/17 10:36 Dose: 1 drop Collagenase (Santyl) 1 gm TOP BID [facility] Last Admin: 04/18/17 10:38 Dose: 1 cre Epoetin Maxwell (Procrit) 10,[address] [facility] Stop: 04/22/17 09:01 Last Admin: 04/17/17 16:50 Dose: Not Given Ergocalciferol (Drisdol 50,000 Intl Units Cap) 1 cap PO Q7D [facility] Last Admin: 04/12/17 00:14 Dose: Not Given Ferric Sodium Gluconate Complex (Ferrlecit) [address] [facility] Stop: 04/22/17 09:01 Last Admin: 04/17/17 17:29 Dose: Not Given Furosemide (Lasix) 40 mg PO DAILY [facility] Last Admin: 04/18/17 09:12 Dose: 40 mg Hydralazine HCl (Apresoline) 25 mg PO BID [facility] Last Admin: 04/18/17 09:13 Dose: 25 mg Dextrose/Sodium Chloride (Dextrose 5%/0.45% Ns 1000 Ml) 1,000 mls @ 60 mls/hr IV .[id number] [facility] Last Admin: 04/12/17 13:19 Dose: 60 mls/hr Gentamicin Sulfate/Sodium Chloride (Gentamicin Iv 80 Mg Premix) 80 mg in 100 mls @ 100 mls/hr IVPB MWF [facility] Last Admin: 04/17/17 17:29 Dose: Not Given Piperacillin Sod/Tazobactam Sod (Zosyn 2.25 Gm Iv Premix) 2.25 gm in 50 mls @ 200 mls/hr IVPB Q8 [facility] Last Admin: 04/18/17 05:27 Dose: 200 mls/hr Linezolid (Zyvox 600mg/300ml D5w) 600 mg in 300 mls @ 200 mls/hr IVPB Q12H [facility] Last Admin: 04/18/17 11:22 Dose: 200 mls/hr Dextrose/Sodium Chloride (Dextrose 5%/0.9% Ns 1000 Ml) 1,000 mls @ 42 mls/hr IV .[id number] [facility] Last Admin: 04/18/17 08:20 Dose: 42 mls/hr Insulin Glargine (Lantus) 15 unit SC [facility] Insulin Human Regular (Novolin R) 0 unit SC [facility] PRN Reason: Protocol Last Admin: 04/18/17 11:25 Dose: Not Given Latanoprost (Xalatan Opht) 0.02 ml OU HS [facility] Last Admin: 04/17/17 22:24 Dose: 0.02 ml Pantoprazole Sodium (Protonix Susp) 40 mg PO DAILY [facility] Last Admin: 04/18/17 09:13 Dose: 40 mg Rosuvastatin Calcium (Crestor) 10 mg PO HS [facility] Last Admin: 04/17/17 21:52 Dose: 10 mg Thiamine HCl (Vitamin B1 Inj) 100 mg IV Q8H [facility] Last Admin: 04/18/17 05:30 Dose: 100 mg Timolol Maleate (Timoptic 0.5% Oph Soln) 1 drop OU BID [facility] Last Admin: 04/18/17 10:39 Dose: 1 drop Vitamin B Complex/Vit C/Folic Acid (Nephro-Alonzo) 1 tab PO 0800 [facility] Last Admin: 04/18/17 09:25 Dose: Not Given - Labs Labs: 04/17/17 06:36 04/17/17 06:36 PT 11.7 SECONDS (9.7-12.2) 04/11/17 18:55 INR 1.0 04/11/17 18:55 APTT 41 SECONDS (21-34) H D 04/17/17 08:58 - Constitutional Appears: Non-toxic - Head Exam Head Exam: ATRAUMATIC - Eye Exam Eye Exam: EOMI Pupil Exam: PERRL - ENT Exam ENT Exam: Mucous Membranes Moist - Neck Exam Neck Exam: Full ROM - Respiratory Exam Respiratory Exam: Clear to Ausculation Bilateral - Cardiovascular Exam Cardiovascular Exam: REGULAR RHYTHM - GI/Abdominal Exam GI & Abdominal Exam: Soft, Normal Bowel Sounds - Extremities Exam Additional comments: wounds are clean dry and intact - Back Exam Back Exam: NORMAL INSPECTION. absent: CVA tenderness (L), CVA tenderness (R) - Neurological Exam Neurological Exam: Alert, Awake - Psychiatric Exam Psychiatric exam: absent: Normal Affect, Normal Mood - Skin Skin Exam: Warm Assessment and Plan - Assessment and Plan (Free Text) Assessment: 71 year old female with PMHx ESRD (dialysis TTS), CHF, HTN, DM2, PVD, AMS, depression, anemia of chronic disease, chronic low back pain, glaucoma, and 12 days s/p BKA with RUE DVT "Altered mental status"; patient is at baseline according to Dr. Myrick etiology unknown however according to attending this is the patients baseline will monitor patient is calm and non combative Acute PE; on anticoagulation Chest CT angio: Filling defects are noted at both upper lobes pulmonary arteries suggestive of pulmonary embolus. Large bilateral pleural effusion. Mild cardiomegaly. [id number] pericardial effusion. [id number] anasarca. Lower lobe atelectasis due to pleural effusion. -patient is on Eliquis 10mg BID for 1 week, will change to 5mg BID after ESRD on hemodialysis Dr. Ambrose consulted, help appreciated Pt undergoes hemodialysis Tues/Thurs/Sat monitor CMPs+magnesium and phsophorous daily PICC line inserted by IR 03/23/17 - DVT in R upper extremity Ergocalcierol 1 capsule PO Q7D [facility] diastolic CHF;Chronic MAP >65, EF61% would benefit from cardio f/u Lasix 40mg PO daily S/P BKA General Surgery Consult, Dr. Broussard, help appreciated s/p BKA POD #18; Dr. Broussard f/u surgery recs Santyl for sacral decub WBC 21 Infectious Disease, Dr. Wellington consulted, help appreciated abx per ID Gentamicin 80mg IVPB MWF Zosyn 2.25gm IVPB Q8h Zyvox 600mg IVPB Q12h Prophylactic Care: DVT: Eliquis 10mg PO [id number]; after 7 days decrease to 5mg PO daily GI: Protonix 40mg PO daily
[2017-04-18 14:06] LABS: BASO # 0.1 K/uL (0.0-0.2); BASO % 0.3 % (0.0-2.0); EOS # 0.1 K/uL (0.0-0.7); EOS % 0.7 % (0.0-4.0); HEMATOCRIT 37.3 % (34.0-47.0); LYMPH # 1.3 K/uL (1.0-4.3); LYMPH % 7.4 % (20.0-40.0); MEAN CELL VOLUME 92.1 fL (81.0-99.0); MEAN CORPUSCULAR HEMOGLOBIN 29.5 pg (27.0-31.0); MEAN CORPUSCULAR HGB CONC 32.1 g/dL (33.0-37.0); MEAN PLATELET VOLUME 8.1 fL (7.2-11.7); MONO # 0.6 K/uL (0.0-0.8); MONO % 3.2 % (0.0-10.0); PLATELET COUNT 205 K/uL (130-400); RED CELL DISTRIBUTION WIDTH 18.6 % (11.5-14.5)
[2017-04-18 14:20] LABS: BILIRUBIN,TOTAL 0.4 mg/dL (0.2-1.3); CALCIUM 7.1 mg/dl (8.6-10.4); MAGNESIUM 1.7 mg/dL (1.6-2.3); PHOSPHOROUS 2.8 mg/dL (2.5-4.5); POTASSIUM 3.1 mmol/L (3.6-5.2); TOTAL PROTEIN 4.9 g/dL (6.3-8.3)
[2017-04-18 14:25] LABS: ALB/GLOB RATIO 0.6 (1.0-2.1)
[2017-04-18] MEDS ORDERED: Epoetin Alfa 10,000 unit/ml Dialysis IV SCH (14:30)
[2017-04-18] MEDS ORDERED: Ferric Sodium Gluconat Complex 62.5 mg/5 ml Vial IVPB SCH (14:30)
[2017-04-18 14:39] LABS: NEUTROPHIL 87 % (50-75); REACTIVE LYMPHOCYTES 3 % (0-0); TOTAL CELLS COUNTED 100
[2017-04-18 14:41] LABS: LARGE PLATELETS PRESENT
[2017-04-18] MEDS: Gentamicin 80 mg in 0.9% NS 80 MG/100 ML BAG IVPB SCH (16:24)
--- NOTE | 2017-04-18 16:43 | CP.PCM.PN ---
Subjective - Date & Time of Evaluation Date of Evaluation: 04/18/17 Time of Evaluation: 16:41 - Subjective Subjective: on hd at present trying to ultrafiltrate as bp permits vss alize proc cont iv abs cont rx and support mult med problems discussed w family at bedside and icu staff Objective - Vital Signs/Intake and Output Vital Signs (last 24 hours): Temp Pulse Resp BP Pulse Ox 97.9 F 90 13 113/94 H 100 04/18/17 09:11 04/18/17 16:32 04/18/17 16:32 04/18/17 16:32 04/18/17 16:32 Intake and Output: 04/18/17 04/18/17 06:59 18:59 Intake Total 700 852 Output Total 100 249 Balance 600 603 - Medications Medications: Current Medications Acetaminophen (Tylenol 325mg Tab) 650 mg PO Q6 PRN PRN Reason: Pain, moderate (4-7) Last Admin: 04/18/17 09:11 Dose: 650 mg Apixaban (Eliquis) 10 mg PO BID [facility] Stop: 04/20/17 18:01 Last Admin: 04/18/17 09:30 Dose: 10 mg Apixaban (Eliquis) 5 mg PO BID [facility] Brimonidine Tartrate (Alphagan 0.2% Opht) 1 ml OU TID [facility] Last Admin: 04/18/17 14:00 Dose: 1 drop Collagenase (Santyl) 1 gm TOP BID [facility] Last Admin: 04/18/17 10:38 Dose: 1 cre Epoetin Maxwell (Procrit) 10,000 unit IV TTS [facility] Stop: 04/23/17 10:01 Ergocalciferol (Drisdol 50,000 Intl Units Cap) 1 cap PO Q7D [facility] Last Admin: 04/12/17 00:14 Dose: Not Given Ferric Sodium Gluconate Complex (Ferrlecit) 125 mg IVPB TTS [facility] Stop: 04/23/17 10:01 Last Admin: 04/18/17 15:48 Dose: 125 mg Furosemide (Lasix) 40 mg PO DAILY [facility] Last Admin: 04/18/17 09:12 Dose: 40 mg Hydralazine HCl (Apresoline) 25 mg PO BID [facility] Last Admin: 04/18/17 09:13 Dose: 25 mg Dextrose/Sodium Chloride (Dextrose 5%/0.45% Ns 1000 Ml) 1,000 mls @ 60 mls/hr IV .[id number] [facility] Last Admin: 04/12/17 13:19 Dose: 60 mls/hr Piperacillin Sod/Tazobactam Sod (Zosyn 2.25 Gm Iv Premix) 2.25 gm in 50 mls @ 200 mls/hr IVPB Q8 [facility] Last Admin: 04/18/17 14:00 Dose: 200 mls/hr Linezolid (Zyvox 600mg/300ml D5w) 600 mg in 300 mls @ 200 mls/hr IVPB Q12H [facility] Last Admin: 04/18/17 11:22 Dose: 200 mls/hr Gentamicin Sulfate/Sodium Chloride (Gentamicin Iv 80 Mg Premix) 80 mg in 100 mls @ 100 mls/hr IVPB TTS [facility] Last Admin: 04/18/17 16:24 Dose: 100 mls/hr Dextrose/Sodium Chloride (Dextrose 5%/0.9% Ns 1000 Ml) 1,000 mls @ 84 mls/hr IV .[id number] [facility] Last Admin: 04/18/17 08:30 Dose: 84 mls/hr Insulin Glargine (Lantus) 15 unit SC HS [facility] Insulin Human Regular (Novolin R) 0 unit SC ACHS [facility] PRN Reason: Protocol Last Admin: 04/18/17 16:25 Dose: Not Given Latanoprost (Xalatan Opht) 0.02 ml OU HS [facility] Last Admin: 04/17/17 22:24 Dose: 0.02 ml Pantoprazole Sodium (Protonix Susp) 40 mg PO DAILY [facility] Last Admin: 04/18/17 09:13 Dose: 40 mg Rosuvastatin Calcium (Crestor) 10 mg PO HS [facility] Last Admin: 04/17/17 21:52 Dose: 10 mg Thiamine HCl (Vitamin B1 Inj) 100 mg IV Q8H [facility] Last Admin: 04/18/17 05:30 Dose: 100 mg Timolol Maleate (Timoptic 0.5% Ophth Soln) 1 drop OU BID [facility] Last Admin: 04/18/17 10:39 Dose: 1 drop Vitamin B Complex/Vit C/Folic Acid (Nephro-Alonzo) 1 tab PO 0800 [facility] Last Admin: 04/18/17 09:25 Dose: Not Given - Labs Labs: 04/18/17 13:52 04/18/17 13:52 PT 11.7 SECONDS (9.7-12.2) 04/11/17 18:55 INR 1.0 04/11/17 18:55 APTT 29 SECONDS (21-34) D 04/18/17 13:52 - Constitutional Appears: Non-toxic - Head Exam Head Exam: NORMAL INSPECTION - Eye Exam Eye Exam: Normal appearance - ENT Exam ENT Exam: Mucous Membranes Moist - Respiratory Exam Respiratory Exam: NORMAL BREATHING PATTERN - Cardiovascular Exam Cardiovascular Exam: REGULAR RHYTHM - GI/Abdominal Exam GI & Abdominal Exam: Soft - Back Exam Back Exam: NORMAL INSPECTION - Neurological Exam Neurological Exam: Altered, Awake - Skin Skin Exam: Dry, Warm
[2017-04-18] MEDS: Ergocalciferol 50,000 Intl Units Cap PO SCH ×2 (17:08→22:30)
[2017-04-18] MEDS: Dextrose 5%/0.9% NS 1,000 ML IV SCH (20:53)
[2017-04-18] MEDS: Latanoprost 2.5 ml Opht Soln OU SCH (21:34)
[2017-04-18] MEDS: (Lantus) Insulin Glargine, Recombinant SC SCH (22:02)
[2017-04-19] MEDS: Linezolid 600 mg in D5W 300 ml 600 MG/300 ML BAG IVPB SCH ×2 (00:11→12:23)
[2017-04-19] MEDS ORDERED: Dextrose 50% SYRINGE Inj (50 ml) IV STA (02:06)
[2017-04-19] MEDS: Thiamine 100 mg/ml Inj IV SCH ×3 (05:32→21:37)
[2017-04-19] MEDS: Piperacill/Tazo 2.25gm in Dex 2.25 GM/50 ML BAG IVPB SCH ×3 (05:32→21:38)
[2017-04-19] MEDS ORDERED: Dextrose 50% SYRINGE Inj (50 ml) ONE (08:15)
[2017-04-19] MEDS: Multivitamin Vitamin B Complex (Nephro-Vite) Tab PO SCH (08:17)
[2017-04-19] MEDS ORDERED: Glucagon Recombinant 1 mg Inj IM PRN (08:20)
[2017-04-19] MEDS ORDERED: Dextrose 50% SYRINGE Inj (50 ml) IV PRN (08:20)
[2017-04-19] MEDS: (Novolin R) Insulin Human Regular 100 units/ml vial SC SCH ×4 (08:29→22:06)
[2017-04-19] MEDS: Pantoprazole 40 mg Susp UD PO SCH (09:19)
[2017-04-19] MEDS: Brimonidine 0.2% Opth Sol (5ml) OU SCH ×3 (09:20→17:06)
[2017-04-19] MEDS: Collagenase 250 Units/gm Ointment(30 gm) TOP SCH ×2 (09:41→17:06)
--- NOTE | 2017-04-19 12:12 | CP.PCM.PN ---
Subjective - Date & Time of Evaluation Date of Evaluation: 04/19/17 Time of Evaluation: 06:45 - Subjective Subjective: Vascular Surgery- Dr. Broussard Pt S&E at bedside this AM. no acute events overnight. Patient not answer question in full sentences today. unable to obtain a thorough ROS Objective - Vital Signs/Intake and Output Vital Signs (last 24 hours): Temp Pulse Resp BP Pulse Ox 98 F 82 19 149/68 100 04/19/17 04:00 04/19/17 07:10 04/19/17 07:10 04/19/17 09:19 04/19/17 07:10 Intake and Output: 04/19/17 04/19/17 06:59 18:59 Intake Total 520 Output Total 100 Balance 420 - Medications Medications: Current Medications Acetaminophen (Tylenol 325mg Tab) 650 mg PO Q6 PRN PRN Reason: Pain, moderate (4-7) Last Admin: 04/18/17 09:11 Dose: 650 mg Apixaban (Eliquis) 10 mg PO BID [facility] Stop: 04/20/17 18:01 Last Admin: 04/19/17 09:19 Dose: 10 mg Apixaban (Eliquis) 5 mg PO BID [facility] Brimonidine Tartrate (Alphagan 0.2% Opht) 1 ml OU TID [facility] Last Admin: 04/19/17 09:20 Dose: 1 drop Collagenase (Santyl) 0 gm TOP Q12H [facility] Dextrose (Dextrose 50% Inj) 0 ml IV STAT PRN; Protocol PRN Reason: Hypoglycemia Protocol Epoetin Maxwell (Procrit) 10,000 unit IV TTS [facility] Stop: 04/23/17 10:01 Ergocalciferol (Drisdol 50,000 Intl Units Cap) 1 cap PO Q7D [facility] Last Admin: 04/18/17 22:30 Dose: Not Given Ferric Sodium Gluconate Complex (Ferrlecit) 125 mg IVPB TTS [facility] Stop: 04/23/17 10:01 Last Admin: 04/18/17 15:48 Dose: 125 mg Furosemide (Lasix) 40 mg PO DAILY [facility] Last Admin: 04/19/17 09:19 Dose: 40 mg Glucagon (Glucagen Diagnostic Kit) 1 mg IM STAT PRN; Protocol PRN Reason: Hypoglycemia Protocol Hydralazine HCl (Apresoline) 25 mg PO BID [facility] Last Admin: 04/19/17 09:18 Dose: 25 mg Dextrose/Sodium Chloride (Dextrose 5%/0.45% Ns 1000 Ml) 1,000 mls @ 60 mls/hr IV .[id number] [facility] Last Admin: 04/12/17 13:19 Dose: 60 mls/hr Piperacillin Sod/Tazobactam Sod (Zosyn 2.25 Gm Iv Premix) 2.25 gm in 50 mls @ 200 mls/hr IVPB Q8 [facility] Last Admin: 04/19/17 05:32 Dose: 200 mls/hr Linezolid (Zyvox 600mg/300ml D5w) 600 mg in 300 mls @ 200 mls/hr IVPB Q12H [facility] Last Admin: 04/19/17 00:11 Dose: 200 mls/hr Gentamicin Sulfate/Sodium Chloride (Gentamicin Iv 80 Mg Premix) 80 mg in 100 mls @ 100 mls/hr IVPB TTS [facility] Last Admin: 04/18/17 16:24 Dose: 100 mls/hr Dextrose/Sodium Chloride (Dextrose 5%/0.9% Ns 1000 Ml) 1,000 mls @ 42 mls/hr IV .[id number] [facility] Last Admin: 04/18/17 20:53 Dose: Not Given Dextrose (Dextrose 5% In Water 1000 Ml) 1,000 mls @ 0 mls/hr IV .Q0M PRN; Protocol; Per Protocol PRN Reason: Hypoglycemia Protocol Insulin Glargine (Lantus) 15 unit SC [facility] Last Admin: 04/18/17 22:02 Dose: Not Given Insulin Human Regular (Novolin R) 0 unit SC [facility] PRN Reason: Protocol Last Admin: 04/19/17 08:29 Dose: Not Given Latanoprost (Xalatan Opht) 0.02 ml OU [facility] Last Admin: 04/18/17 21:34 Dose: 0.02 ml Pantoprazole Sodium (Protonix Susp) 40 mg PO DAILY [facility] Last Admin: 04/19/17 09:19 Dose: 40 mg Rosuvastatin Calcium (Crestor) 10 mg PO HS [facility] Last Admin: 04/18/17 21:33 Dose: 10 mg Thiamine HCl (Vitamin B1 Inj) 100 mg IV Q8H [facility] Last Admin: 04/19/17 05:32 Dose: 100 mg Timolol Maleate (Timoptic 0.5% Ophth Soln) 1 drop OU BID [facility] Last Admin: 04/19/17 09:19 Dose: 1 drop Vitamin B Complex/Vit C/Folic Acid (Nephro-Alonzo) 1 tab PO 0800 [facility] Last Admin: 04/19/17 08:17 Dose: 1 tab - Labs Labs: 04/18/17 13:52 04/18/17 13:52 PT 11.7 SECONDS (9.7-12.2) 04/11/17 18:55 INR 1.0 04/11/17 18:55 APTT 29 SECONDS (21-34) D 04/18/17 13:52 - Constitutional Appears: Non-toxic, No Acute Distress - Eye Exam Eye Exam: absent: Scleral icterus - ENT Exam ENT Exam: Mucous Membranes Moist - Respiratory Exam Respiratory Exam: NORMAL BREATHING PATTERN. absent: Accessory Muscle Use, Respiratory Distress - Cardiovascular Exam Cardiovascular Exam: +S1, +S2. absent: Bradycardia, Tachycardia - GI/Abdominal Exam GI & Abdominal Exam: Soft. absent: Distended, Firm, Guarding, Rigid, Tenderness - Extremities Exam Additional comments: L BKA stump, dressing changed at bedside this AM w/ santyl some purulent drainage coming from the lateral incision site. marked erythema located around incision - Neurological Exam Neurological Exam: Awake - Skin Skin Exam: Erythema, Warm Assessment and Plan - Assessment and Plan (Free Text) Assessment: 71F s/p Left BKA hospitalized for DVT RUE w/ PICC - Local wound care BID w/ santyl of left lower extremity; jay and sutures remain in place for now - c/w eloquis - medical management per ICU team - no acute surgical intervention at this time - discussed w/ Dr. Bobo Sandhu PGY1
[2017-04-19] MEDS: Dextrose 5%/0.9% NS 1,000 ML IV SCH ×2 (12:27→21:30)
--- NOTE | 2017-04-19 13:08 | CP.PCM.PN ---
Subjective - Date & Time of Evaluation Date of Evaluation: 04/19/17 Time of Evaluation: 13:07 - Subjective Subjective: PGY2 Note for Dr. Myrick; all management as per Dr. Myrick Patient seen and examined at bedside this AM; unable to participate in subjective history taking portion of exam /2 to baseline mental status. Objective - Vital Signs/Intake and Output Vital Signs (last 24 hours): Temp Pulse Resp BP Pulse Ox 98 F 82 19 149/68 100 04/19/17 04:00 04/19/17 07:10 04/19/17 07:10 04/19/17 09:19 04/19/17 07:10 Intake and Output: 04/19/17 04/19/17 06:59 18:59 Intake Total 520 Output Total 100 Balance 420 - Medications Medications: Current Medications Acetaminophen (Tylenol 325mg Tab) 650 mg PO Q6 PRN PRN Reason: Pain, moderate (4-7) Last Admin: 04/18/17 09:11 Dose: 650 mg Apixaban (Eliquis) 10 mg PO BID [facility] Stop: 04/20/17 18:01 Last Admin: 04/19/17 09:19 Dose: 10 mg Apixaban (Eliquis) 5 mg PO BID [facility] Brimonidine Tartrate (Alphagan 0.2% Opht) 1 ml OU TID [facility] Last Admin: 04/19/17 09:20 Dose: 1 drop Collagenase (Santyl) 0 gm TOP Q12H [facility] Dextrose (Dextrose 50% Inj) 0 ml IV STAT PRN; Protocol PRN Reason: Hypoglycemia Protocol Epoetin Maxwell (Procrit) 10,000 unit IV TTS [facility] Stop: 04/23/17 10:01 Ergocalciferol (Drisdol 50,000 Intl Units Cap) 1 cap PO Q7D [facility] Last Admin: 04/18/17 22:30 Dose: Not Given Ferric Sodium Gluconate Complex (Ferrlecit) 125 mg IVPB TTS [facility] Stop: 04/23/17 10:01 Last Admin: 04/18/17 15:48 Dose: 125 mg Furosemide (Lasix) 40 mg PO DAILY [facility] Last Admin: 04/19/17 09:19 Dose: 40 mg Glucagon (Glucagen Diagnostic Kit) 1 mg IM STAT PRN; Protocol PRN Reason: Hypoglycemia Protocol Hydralazine HCl (Apresoline) 25 mg PO BID [facility] Last Admin: 04/19/17 09:18 Dose: 25 mg Dextrose/Sodium Chloride (Dextrose 5%/0.45% Ns 1000 Ml) 1,000 mls @ 60 mls/hr IV .[id number] [facility] Last Admin: 04/12/17 13:19 Dose: 60 mls/hr Piperacillin Sod/Tazobactam Sod (Zosyn 2.25 Gm Iv Premix) 2.25 gm in 50 mls @ 200 mls/hr IVPB Q8 [facility] Last Admin: 04/19/17 05:32 Dose: 200 mls/hr Linezolid (Zyvox 600mg/300ml D5w) 600 mg in 300 mls @ 200 mls/hr IVPB Q12H [facility] Last Admin: 04/19/17 12:23 Dose: 200 mls/hr Gentamicin Sulfate/Sodium Chloride (Gentamicin Iv 80 Mg Premix) 80 mg in 100 mls @ 100 mls/hr IVPB TTS [facility] Last Admin: 04/18/17 16:24 Dose: 100 mls/hr Dextrose/Sodium Chloride (Dextrose 5%/0.9% Ns 1000 Ml) 1,000 mls @ 42 mls/hr IV .[id number] [facility] Last Admin: 04/19/17 12:27 Dose: 42 mls/hr Dextrose (Dextrose 5% In Water 1000 Ml) 1,000 mls @ 0 mls/hr IV .Q0M PRN; Protocol; Per Protocol PRN Reason: Hypoglycemia Protocol Insulin Glargine (Lantus) 15 unit SC [facility] Last Admin: 04/18/17 22:02 Dose: Not Given Insulin Human Regular (Novolin R) 0 unit SC [facility] PRN Reason: Protocol Last Admin: 04/19/17 08:29 Dose: Not Given Latanoprost (Xalatan Opht) 0.02 ml OU [facility] Last Admin: 04/18/17 21:34 Dose: 0.02 ml Pantoprazole Sodium (Protonix Susp) 40 mg PO DAILY [facility] Last Admin: 04/19/17 09:19 Dose: 40 mg Rosuvastatin Calcium (Crestor) 10 mg PO HS [facility] Last Admin: 04/18/17 21:33 Dose: 10 mg Thiamine HCl (Vitamin B1 Inj) 100 mg IV Q8H [facility] Last Admin: 04/19/17 05:32 Dose: 100 mg Timolol Maleate (Timoptic 0.5% Ophth Soln) 1 drop OU BID [facility] Last Admin: 04/19/17 09:19 Dose: 1 drop Vitamin B Complex/Vit C/Folic Acid (Nephro-Alonzo) 1 tab PO 0800 [facility] Last Admin: 04/19/17 08:17 Dose: 1 tab - Labs Labs: 04/18/17 13:52 04/18/17 13:52 PT 11.7 SECONDS (9.7-12.2) 04/11/17 18:55 INR 1.0 04/11/17 18:55 APTT 29 SECONDS (21-34) D 04/18/17 13:52 - Constitutional Appears: Chronically Ill - Eye Exam Eye Exam: absent: Scleral icterus - ENT Exam ENT Exam: Mucous Membranes Moist - Neck Exam Neck Exam: Full ROM. absent: Lymphadenopathy - Respiratory Exam Respiratory Exam: Rales, NORMAL BREATHING PATTERN. absent: Clear to Ausculation Bilateral - Cardiovascular Exam Cardiovascular Exam: Irregular Rhythm - GI/Abdominal Exam GI & Abdominal Exam: Soft, Normal Bowel Sounds - Back Exam Back Exam: absent: CVA tenderness (L), CVA tenderness (R) - Neurological Exam Neurological Exam: Awake - Psychiatric Exam Psychiatric exam: Normal Affect - Skin Skin Exam: Warm Assessment and Plan - Assessment and Plan (Free Text) Assessment: 71 year old female with PMHx ESRD (dialysis TTS), CHF, HTN, DM2, PVD, AMS, depression, anemia of chronic disease, chronic low back pain, glaucoma, and 12 days s/p BKA with RUE DVT "Altered mental status"; patient is at baseline according to Dr. Myrick etiology unknown however according to attending this is the patients baseline will monitor patient is calm and non combative stable Acute PE; on anticoagulation Chest CT angio: Filling defects are noted at both upper lobes pulmonary arteries suggestive of pulmonary embolus. Large bilateral pleural effusion. Mild cardiomegaly. [id number] pericardial effusion. [id number] anasarca. Lower lobe atelectasis due to pleural effusion. -patient is on Eliquis 10mg BID for 1 week, will change to 5mg BID after 04/19 will be day 3; will need 4 more days at 10mg BID ESRD on hemodialysis; stable Dr. Ambrose consulted, help appreciated Pt undergoes hemodialysis Tues/Thurs/Sat monitor CMPs+magnesium and phsophorous daily PICC line inserted by IR 03/23/17 - DVT in R upper extremity Ergocalcierol 1 capsule PO Q7D [facility] Diastolic CHF;Chronic MAP >65, EF61% would benefit from cardio f/u Lasix 40mg PO daily S/P BKA General Surgery Consult, Dr. Broussard, help appreciated s/p BKA POD #18; Dr. Broussard f/u surgery recs Santyl for sacral decub WBC 21 Infectious Disease, Dr. Wellington consulted, help appreciated abx per ID Gentamicin 80mg IVPB MWF Zosyn 2.25gm IVPB Q8h Zyvox 600mg IVPB Q12h Prophylactic Care: DVT: Eliquis 10mg PO [id number]; after 7 days decrease to 5mg PO daily GI: Protonix 40mg PO daily
--- NOTE | 2017-04-19 16:08 | CP.PCM.PN ---
Subjective - Date & Time of Evaluation Date of Evaluation: 04/19/17 Time of Evaluation: 16:06 - Subjective Subjective: had hd yesterday did well next on still complaining of gernerlized pain rest as before: Acute PE; on anticoagulation Chest CT angio: Filling defects are noted at both upper lobes pulmonary arteries suggestive of pulmonary embolus. Large bilateral pleural effusion. Mild cardiomegaly. [id number] pericardial effusion. [id number] anasarca. Lower lobe atelectasis due to pleural effusion. -patient is on Eliquis 10mg BID for 1 week, will change to 5mg BID after 04/19 will be day 3; will need 4 more days at 10mg BID ESRD on hemodialysis; stable Pt undergoes hemodialysis //Sat monitor CMPs+magnesium and phsophorous daily PICC line inserted by IR 03/23/17 - DVT in R upper extremity Ergocalcierol 1 capsule PO Q7D [facility] Diastolic CHF;Chronic MAP >65, EF61% would benefit from cardio f/u Lasix 40mg PO daily S/P BKA General Surgery Consult, Dr. Broussard, help appreciated s/p BKA POD #18; Dr. Broussard f/u surgery recs Santyl for sacral decub WBC 21 Infectious Disease, Dr. Wellington consulted, help appreciated abx per ID Gentamicin 80mg IVPB MWF Zosyn 2.25gm IVPB Q8h Zyvox 600mg IVPB Q12h Objective - Vital Signs/Intake and Output Vital Signs (last 24 hours): Temp Pulse Resp BP Pulse Ox 98.9 F 85 19 162/96 H 100 04/19/17 12:00 04/19/17 13:20 04/19/17 13:20 04/19/17 13:09 04/19/17 12:00 Intake and Output: 04/19/17 04/19/17 06:59 18:59 Intake Total 520 828 Output Total 100 Balance 420 828 - Medications Medications: Current Medications Acetaminophen (Tylenol 325mg Tab) 650 mg PO Q6 PRN PRN Reason: Pain, moderate (4-7) Last Admin: 04/18/17 09:11 Dose: 650 mg Apixaban (Eliquis) 10 mg PO BID [facility] Stop: 04/20/17 18:01 Last Admin: 04/19/17 09:19 Dose: 10 mg Apixaban (Eliquis) 5 mg PO BID [facility] Brimonidine Tartrate (Alphagan 0.2% Opht) 1 ml OU TID [facility] Last Admin: 04/19/17 14:14 Dose: 1 drop Collagenase (Santyl) 0 gm TOP Q12H [facility] Dextrose (Dextrose 50% Inj) 0 ml IV STAT PRN; Protocol PRN Reason: Hypoglycemia Protocol Epoetin Maxwell (Procrit) 10,000 unit IV TTS [facility] Stop: 04/23/17 10:01 Ergocalciferol (Drisdol 50,000 Intl Units Cap) 1 cap PO Q7D [facility] Last Admin: 04/18/17 22:30 Dose: Not Given Ferric Sodium Gluconate Complex (Ferrlecit) 125 mg IVPB TTS [facility] Stop: 04/23/17 10:01 Last Admin: 04/18/17 15:48 Dose: 125 mg Furosemide (Lasix) 40 mg PO DAILY [facility] Last Admin: 04/19/17 09:19 Dose: 40 mg Glucagon (Glucagen Diagnostic Kit) 1 mg IM STAT PRN; Protocol PRN Reason: Hypoglycemia Protocol Hydralazine HCl (Apresoline) 25 mg PO BID [facility] Last Admin: 04/19/17 09:18 Dose: 25 mg Dextrose/Sodium Chloride (Dextrose 5%/0.45% Ns 1000 Ml) 1,000 mls @ 60 mls/hr IV .[id number] [facility] Last Admin: 04/12/17 13:19 Dose: 60 mls/hr Piperacillin Sod/Tazobactam Sod (Zosyn 2.25 Gm Iv Premix) 2.25 gm in 50 mls @ 200 mls/hr IVPB Q8 [facility] Last Admin: 04/19/17 14:11 Dose: 200 mls/hr Linezolid (Zyvox 600mg/300ml D5w) 600 mg in 300 mls @ 200 mls/hr IVPB Q12H [facility] Last Admin: 04/19/17 12:23 Dose: 200 mls/hr Gentamicin Sulfate/Sodium Chloride (Gentamicin Iv 80 Mg Premix) 80 mg in 100 mls @ 100 mls/hr IVPB TTS [facility] Last Admin: 04/18/17 16:24 Dose: 100 mls/hr Dextrose/Sodium Chloride (Dextrose 5%/0.9% Ns 1000 Ml) 1,000 mls @ 42 mls/hr IV .[id number] [facility] Last Admin: 04/19/17 12:27 Dose: 42 mls/hr Dextrose (Dextrose 5% In Water 1000 Ml) 1,000 mls @ 0 mls/hr IV .Q0M PRN; Protocol; Per Protocol PRN Reason: Hypoglycemia Protocol Insulin Glargine (Lantus) 15 unit SC HS [facility] Last Admin: 04/18/17 22:02 Dose: Not Given Insulin Human Regular (Novolin R) 0 unit SC ACHS [facility] PRN Reason: Protocol Last Admin: 04/19/17 11:35 Dose: Not Given Latanoprost (Xalatan Opht) 0.02 ml OU HS [facility] Last Admin: 04/18/17 21:34 Dose: 0.02 ml Nystatin (Nystop Topical Powder) 1 gm TOP Q8H [facility] Pantoprazole Sodium (Protonix Susp) 40 mg PO DAILY [facility] Last Admin: 04/19/17 09:19 Dose: 40 mg Rosuvastatin Calcium (Crestor) 10 mg PO HS [facility] Last Admin: 04/18/17 21:33 Dose: 10 mg Thiamine HCl (Vitamin B1 Inj) 100 mg IV Q8H [facility] Last Admin: 04/19/17 14:12 Dose: 100 mg Timolol [facility]ate [facility] 1 drop OU BID [facility] Last Admin: 04/19/17 09:19 Dose: 1 drop Vitamin B Complex/Vit C/Folic Acid (Nephro-Alonzo) 1 tab PO 0800 [facility] Last Admin: 04/19/17 08:17 Dose: 1 tab - Labs Labs: 04/18/17 13:52 04/18/17 13:52 PT 11.7 SECONDS (9.7-12.2) 04/11/17 18:55 INR 1.0 04/11/17 18:55 APTT 29 SECONDS (21-34) D 04/18/17 13:52 - Constitutional Appears: Non-toxic - Head Exam Head Exam: NORMAL INSPECTION - Eye Exam Eye Exam: Normal appearance Pupil Exam: NORMAL ACCOMODATION - ENT Exam ENT Exam: Mucous Membranes Moist - Neck Exam Neck Exam: Normal Inspection - Respiratory Exam Respiratory Exam: NORMAL BREATHING PATTERN - Cardiovascular Exam Cardiovascular Exam: REGULAR RHYTHM - GI/Abdominal Exam GI & Abdominal Exam: Distended, Soft - Back Exam Back Exam: NORMAL INSPECTION - Neurological Exam Neurological Exam: Altered - Psychiatric Exam Psychiatric exam: Anxious - Skin Skin Exam: Dry, Warm Assessment and Plan - Assessment and Plan (Free Text) Plan: hd tts
--- NOTE | 2017-04-19 16:35 | CP.PCM.PN ---
Subjective - Date & Time of Evaluation Date of Evaluation: 04/19/17 Time of Evaluation: 09:00 - Subjective Subjective: events noted s/p PE iv rx in progress may need debridement cont wound care Objective - Vital Signs/Intake and Output Vital Signs (last 24 hours): Temp Pulse Resp BP Pulse Ox 98.9 F 85 19 162/96 H 100 04/19/17 12:00 04/19/17 13:20 04/19/17 13:20 04/19/17 13:09 04/19/17 12:00 Intake and Output: 04/19/17 04/19/17 06:59 18:59 Intake Total 520 828 Output Total 100 Balance 420 828 - Medications Medications: Current Medications Acetaminophen (Tylenol 325mg Tab) 650 mg PO Q6 PRN PRN Reason: Pain, moderate (4-7) Last Admin: 04/18/17 09:11 Dose: 650 mg Apixaban (Eliquis) 10 mg PO BID [facility] Stop: 04/20/17 18:01 Last Admin: 04/19/17 09:19 Dose: 10 mg Apixaban (Eliquis) 5 mg PO BID [facility] Brimonidine Tartrate (Alphagan 0.2% Opht) 1 ml OU TID [facility] Last Admin: 04/19/17 14:14 Dose: 1 drop Collagenase (Santyl) 0 gm TOP Q12H [facility] Dextrose (Dextrose 50% Inj) 0 ml IV STAT PRN; Protocol PRN Reason: Hypoglycemia Protocol Epoetin Maxwell (Procrit) 10,000 unit IV TTS [facility] Stop: 04/23/17 10:01 Ergocalciferol (Drisdol 50,000 Intl Units Cap) 1 cap PO Q7D [facility] Last Admin: 04/18/17 22:30 Dose: Not Given Ferric Sodium Gluconate Complex (Ferrlecit) 125 mg IVPB TTS [facility] Stop: 04/23/17 10:01 Last Admin: 04/18/17 15:48 Dose: 125 mg Furosemide (Lasix) 40 mg PO DAILY [facility] Last Admin: 04/19/17 09:19 Dose: 40 mg Glucagon (Glucagen Diagnostic Kit) 1 mg IM STAT PRN; Protocol PRN Reason: Hypoglycemia Protocol Hydralazine HCl (Apresoline) 25 mg PO BID [facility] Last Admin: 04/19/17 09:18 Dose: 25 mg Dextrose/Sodium Chloride (Dextrose 5%/0.45% Ns 1000 Ml) 1,000 mls @ 60 mls/hr IV .[id number] [facility] Last Admin: 04/12/17 13:19 Dose: 60 mls/hr Piperacillin Sod/Tazobactam Sod (Zosyn 2.25 Gm Iv Premix) 2.25 gm in 50 mls @ 200 mls/hr IVPB Q8 [facility] Last Admin: 04/19/17 14:11 Dose: 200 mls/hr Linezolid (Zyvox 600mg/300ml D5w) 600 mg in 300 mls @ 200 mls/hr IVPB Q12H [facility] Last Admin: 04/19/17 12:23 Dose: 200 mls/hr Gentamicin Sulfate/Sodium Chloride (Gentamicin Iv 80 Mg Premix) 80 mg in 100 mls @ 100 mls/hr IVPB TTS [facility] Last Admin: 04/18/17 16:24 Dose: 100 mls/hr Dextrose/Sodium Chloride (Dextrose 5%/0.9% Ns 1000 Ml) 1,000 mls @ 42 mls/hr IV .[id number] [facility] Last Admin: 04/19/17 12:27 Dose: 42 mls/hr Dextrose (Dextrose 5% In Water 1000 Ml) 1,000 mls @ 0 mls/hr IV .Q0M PRN; Protocol; Per Protocol PRN Reason: Hypoglycemia Protocol Insulin Glargine (Lantus) 15 unit SC [facility] Last Admin: 04/18/17 22:02 Dose: Not Given Insulin Human Regular (Novolin R) 0 unit SC [facility] PRN Reason: Protocol Last Admin: 04/19/17 16:26 Dose: Not Given Latanoprost (Xalatan Opht) 0.02 ml OU HS [facility] Last Admin: 04/18/17 21:34 Dose: 0.02 ml Nystatin (Nystop Topical Powder) 1 gm TOP Q8H [facility] Pantoprazole Sodium (Protonix Susp) 40 mg PO DAILY [facility] Last Admin: 04/19/17 09:19 Dose: 40 mg Rosuvastatin Calcium (Crestor) 10 mg PO HS [facility] Last Admin: 04/18/17 21:33 Dose: 10 mg Thiamine HCl (Vitamin B1 Inj) 100 mg IV Q8H [facility] Last Admin: 04/19/17 14:12 Dose: 100 mg Timolol Maleate (Timoptic 0.5% Ophth Soln) 1 drop OU BID [facility] Last Admin: 04/19/17 09:19 Dose: 1 drop Vitamin B Complex/Vit C/Folic Acid (Nephro-Alonzo) 1 tab PO 0800 [facility] Last Admin: 04/19/17 08:17 Dose: 1 tab - Labs Labs: 04/18/17 13:52 04/18/17 13:52 PT 11.7 SECONDS (9.7-12.2) 04/11/17 18:55 INR 1.0 04/11/17 18:55 APTT 29 SECONDS (21-34) D 04/18/17 13:52 - Constitutional Appears: Non-toxic, Confused, Cachectic, Chronically Ill - Head Exam Head Exam: NORMOCEPHALIC - Eye Exam Eye Exam: PERRL - ENT Exam ENT Exam: Mucous Membranes Dry - Neck Exam Neck Exam: absent: Lymphadenopathy - Respiratory Exam Respiratory Exam: Decreased Breath Sounds - Cardiovascular Exam Cardiovascular Exam: REGULAR RHYTHM - GI/Abdominal Exam GI & Abdominal Exam: Distended, Soft - Rectal Exam Rectal Exam: Deferred - Exam Exam: NORMAL INSPECTION Assessment and Plan (1) Elevated WBC count Status: Acute (2) S/P BKA (below knee amputation) Status: Acute (3) Sacral decubitus ulcer, stage III Status: Acute (4) Sepsis Status: Acute
[2017-04-19] MEDS: Nystatin 100,000 Units/gm Topical Pow(15 gm) TOP SCH (17:04)
[2017-04-19] MEDS: (Lantus) Insulin Glargine, Recombinant SC SCH (21:38)
[2017-04-19] MEDS: Latanoprost 2.5 ml Opht Soln OU SCH (21:39)
[2017-04-20] MEDS: Linezolid 600 mg in D5W 300 ml 600 MG/300 ML BAG IVPB SCH ×2 (00:01→13:04)
[2017-04-20] MEDS: Nystatin 100,000 Units/gm Topical Pow(15 gm) TOP SCH ×3 (00:01→17:00)
[2017-04-20] MEDS: Piperacill/Tazo 2.25gm in Dex 2.25 GM/50 ML BAG IVPB SCH ×3 (06:03→22:05)
[2017-04-20] MEDS: Thiamine 100 mg/ml Inj IV SCH ×3 (06:04→22:11)
[2017-04-20] MEDS: Collagenase 250 Units/gm Ointment(30 gm) TOP SCH ×2 (06:05→17:00)
[2017-04-20] MEDS: Multivitamin Vitamin B Complex (Nephro-Vite) Tab PO SCH (08:22)
[2017-04-20] MEDS: (Novolin R) Insulin Human Regular 100 units/ml vial SC SCH ×4 (08:22→22:07)
[2017-04-20] MEDS: Pantoprazole 40 mg Susp UD PO SCH (09:35)
[2017-04-20] MEDS: Brimonidine 0.2% Opth Sol (5ml) OU SCH ×3 (09:36→17:59)
--- NOTE | 2017-04-20 11:05 | CP.PCM.PN ---
Subjective - Date & Time of Evaluation Date of Evaluation: 04/20/17 Time of Evaluation: 09:00 - Subjective Subjective: awake / confused / afebrile Objective - Vital Signs/Intake and Output Vital Signs (last 24 hours): Temp Pulse Resp BP Pulse Ox 97.9 F 72 17 87/51 L 100 04/20/17 08:00 04/20/17 10:05 04/20/17 10:05 04/20/17 10:50 04/20/17 10:05 Intake and Output: 04/20/17 04/20/17 06:59 18:59 Intake Total 578 Output Total 50 Balance 528 - Medications Medications: Current Medications Acetaminophen (Tylenol 325mg Tab) 650 mg PO Q6 PRN PRN Reason: Pain, moderate (4-7) Last Admin: 04/18/17 09:11 Dose: 650 mg Apixaban (Eliquis) 10 mg PO BID [facility] Stop: 04/20/17 18:01 Last Admin: 04/20/17 09:34 Dose: 10 mg Apixaban (Eliquis) 5 mg PO BID [facility] Brimonidine Tartrate (Alphagan 0.2% Opht) 1 ml OU TID [facility] Last Admin: 04/20/17 09:36 Dose: 1 drop Collagenase (Santyl) 0 gm TOP Q12H [facility] Last Admin: 04/20/17 06:05 Dose: 1 applic Dextrose (Dextrose 50% Inj) 0 ml IV STAT PRN; Protocol PRN Reason: Hypoglycemia Protocol Epoetin Maxwell (Procrit) 10,000 unit IV TTS [facility] Stop: 04/23/17 10:01 Ergocalciferol (Drisdol 50,000 Intl Units Cap) 1 cap PO Q7D [facility] Last Admin: 04/18/17 22:30 Dose: Not Given Ferric Sodium Gluconate Complex (Ferrlecit) 125 mg IVPB TTS [facility] Stop: 04/23/17 10:01 Last Admin: 04/18/17 15:48 Dose: 125 mg Furosemide (Lasix) 40 mg PO DAILY [facility] Last Admin: 04/20/17 09:34 Dose: 40 mg Glucagon (Glucagen Diagnostic Kit) 1 mg IM STAT PRN; Protocol PRN Reason: Hypoglycemia Protocol Hydralazine HCl (Apresoline) 25 mg PO BID [facility] Last Admin: 04/20/17 09:37 Dose: Not Given Dextrose/Sodium Chloride (Dextrose 5%/0.45% Ns 1000 Ml) 1,000 mls @ 60 mls/hr IV .[id number] [facility] Last Admin: 04/12/17 13:19 Dose: 60 mls/hr Piperacillin Sod/Tazobactam Sod (Zosyn 2.25 Gm Iv Premix) 2.25 gm in 50 mls @ 200 mls/hr IVPB Q8 [facility] Last Admin: 04/20/17 06:03 Dose: 200 mls/hr Linezolid (Zyvox 600mg/300ml D5w) 600 mg in 300 mls @ 200 mls/hr IVPB Q12H [facility] Last Admin: 04/20/17 00:01 Dose: 200 mls/hr Gentamicin Sulfate/Sodium Chloride (Gentamicin Iv 80 Mg Premix) 80 mg in 100 mls @ 100 mls/hr IVPB TTS [facility] Last Admin: 04/18/17 16:24 Dose: 100 mls/hr Dextrose/Sodium Chloride (Dextrose 5%/0.9% Ns 1000 Ml) 1,000 mls @ 42 mls/hr IV .[id number] [facility] Last Admin: 04/19/17 21:30 Dose: Not Given Dextrose (Dextrose 5% In Water 1000 Ml) 1,000 mls @ 0 mls/hr IV .Q0M PRN; Protocol; Per Protocol PRN Reason: Hypoglycemia Protocol Insulin Glargine (Lantus) 15 unit SC [facility] Last Admin: 04/19/17 21:38 Dose: 15 u Insulin Human Regular (Novolin R) 0 unit SC [facility] PRN Reason: Protocol Last Admin: 04/20/17 08:22 Dose: Not Given Latanoprost (Xalatan Opht) 0.02 ml OU [facility] Last Admin: 04/19/17 21:39 Dose: 0.02 ml Nystatin (Nystop Topical Powder) 1 gm TOP Q8H [facility] Last Admin: 04/20/17 08:23 Dose: 1 gra Pantoprazole Sodium (Protonix Susp) 40 mg PO DAILY [facility] Last Admin: 04/20/17 09:35 Dose: 40 mg Rosuvastatin Calcium (Crestor) 10 mg PO HS [facility] Last Admin: 04/19/17 21:37 Dose: 10 mg Thiamine HCl (Vitamin B1 Inj) 100 mg IV Q8H [facility] Last Admin: 04/20/17 06:04 Dose: 100 mg Timolol Maleate (Timoptic 0.5% Oph Soln) 1 drop OU BID [facility] Last Admin: 04/20/17 09:36 Dose: 1 drop Vitamin B Complex/Vit C/Folic Acid (Nephro-Alonzo) 1 tab PO 0800 [facility] Last Admin: 04/20/17 08:22 Dose: 1 tab - Labs Labs: 04/18/17 13:52 04/18/17 13:52 PT 11.7 SECONDS (9.7-12.2) 04/11/17 18:55 INR 1.0 04/11/17 18:55 APTT 29 SECONDS (21-34) D 04/18/17 13:52 - Constitutional Appears: Non-toxic, Chronically Ill - Head Exam Head Exam: NORMOCEPHALIC - ENT Exam ENT Exam: Mucous Membranes Dry - Neck Exam Neck Exam: absent: Lymphadenopathy - Respiratory Exam Respiratory Exam: Decreased Breath Sounds - Cardiovascular Exam Cardiovascular Exam: REGULAR RHYTHM - GI/Abdominal Exam GI & Abdominal Exam: Distended, Soft. absent: Tenderness - Rectal Exam Rectal Exam: Deferred - Exam Exam: NORMAL INSPECTION - Extremities Exam Extremities Exam: absent: Pedal Edema - Back Exam Back Exam: absent: CVA tenderness (L), CVA tenderness (R) - Neurological Exam Neurological Exam: Alert, Awake, Oriented x3 - Psychiatric Exam Psychiatric exam: Depressed - Skin Skin Exam: Dry Assessment and Plan (1) Elevated WBC count Status: Acute (2) S/P BKA (below knee amputation) Status: Acute (3) Sacral decubitus ulcer, stage III Status: Acute (4) Sepsis Status: Acute
[2017-04-20] MEDS ORDERED: Dextrose 50% SYRINGE Inj (50 ml) ONE (11:28)
[2017-04-20] MEDS ORDERED: Albumin Human 25% (12.5 gm/50 ml) IV ONE (11:45)
--- NOTE | 2017-04-20 11:46 | CP.PCM.PN ---
Subjective - Date & Time of Evaluation Date of Evaluation: 04/20/17 Time of Evaluation: 07:45 - Subjective Subjective: Vascular Surgery Note for Dr. Broussard Patient seen and examined at bedside. No acute event overnight. Patient seems more awake and alert. Patient responds to verbal and tactile stimuli. ROS unobtainable. Objective - Vital Signs/Intake and Output Vital Signs (last 24 hours): Temp Pulse Resp BP Pulse Ox 97.9 F 72 17 124/49 L 100 04/20/17 10:05 04/20/17 10:05 04/20/17 10:05 04/20/17 11:35 04/20/17 10:05 Intake and Output: 04/20/17 04/20/17 06:59 18:59 Intake Total 578 Output Total 50 Balance 528 - Medications Medications: Current Medications Acetaminophen (Tylenol 325mg Tab) 650 mg PO Q6 PRN PRN Reason: Pain, moderate (4-7) Last Admin: 04/18/17 09:11 Dose: 650 mg Albumin Human (Albumin Human 25% (12.5 Gm/50 Ml)) 12.5 gm IV ONCE ONE Stop: 04/20/17 11:46 Apixaban (Eliquis) 10 mg PO BID [facility] Stop: 04/20/17 18:01 Last Admin: 04/20/17 09:34 Dose: 10 mg Apixaban (Eliquis) 5 mg PO BID [facility] Brimonidine Tartrate (Alphagan 0.2% Opht) 1 ml OU TID [facility] Last Admin: 04/20/17 09:36 Dose: 1 drop Collagenase (Santyl) 0 gm TOP Q12H [facility] Last Admin: 04/20/17 06:05 Dose: 1 applic Dextrose (Dextrose 50% Inj) 0 ml IV STAT PRN; Protocol PRN Reason: Hypoglycemia Protocol Epoetin Maxwell (Procrit) 10,000 unit IV TTS [facility] Stop: 04/23/17 10:01 Ergocalciferol (Drisdol 50,000 Intl Units Cap) 1 cap PO Q7D [facility] Last Admin: 04/18/17 22:30 Dose: Not Given Ferric Sodium Gluconate Complex (Ferrlecit) 125 mg IVPB TTS [facility] Stop: 04/23/17 10:01 Last Admin: 04/18/17 15:48 Dose: 125 mg Furosemide (Lasix) 40 mg PO DAILY [facility] Last Admin: 04/20/17 09:34 Dose: 40 mg Glucagon (Glucagen Diagnostic Kit) 1 mg IM STAT PRN; Protocol PRN Reason: Hypoglycemia Protocol Hydralazine HCl (Apresoline) 25 mg PO BID [facility] Last Admin: 04/20/17 09:37 Dose: Not Given Dextrose/Sodium Chloride (Dextrose 5%/0.45% Ns 1000 Ml) 1,000 mls @ 60 mls/hr IV .[id number] [facility] Last Admin: 04/12/17 13:19 Dose: 60 mls/hr Piperacillin Sod/Tazobactam Sod (Zosyn 2.25 Gm Iv Premix) 2.25 gm in 50 mls @ 200 mls/hr IVPB Q8 [facility] Last Admin: 04/20/17 06:03 Dose: 200 mls/hr Linezolid (Zyvox 600mg/300ml D5w) 600 mg in 300 mls @ 200 mls/hr IVPB Q12H [facility] Last Admin: 04/20/17 00:01 Dose: 200 mls/hr Gentamicin Sulfate/Sodium Chloride (Gentamicin Iv 80 Mg Premix) 80 mg in 100 mls @ 100 mls/hr IVPB TTS [facility] Last Admin: 04/18/17 16:24 Dose: 100 mls/hr Dextrose/Sodium Chloride (Dextrose 5%/0.9% Ns 1000 Ml) 1,000 mls @ 42 mls/hr IV .[id number] [facility] Last Admin: 04/19/17 21:30 Dose: Not Given Dextrose (Dextrose 5% In Water 1000 Ml) 1,000 mls @ 0 mls/hr IV .Q0M PRN; Protocol; Per Protocol PRN Reason: Hypoglycemia Protocol Insulin Glargine (Lantus) 15 unit SC HS [facility] Last Admin: 04/19/17 21:38 Dose: 15 u Insulin Human Regular (Novolin R) 0 unit SC [facility] PRN Reason: Protocol Last Admin: 04/20/17 08:22 Dose: Not Given Latanoprost (Xalatan Opht) 0.02 ml OU HS [facility] Last Admin: 04/19/17 21:39 Dose: 0.02 ml Midodrine (Proamatine) 10 mg PO ONCE ONE Stop: 04/20/17 11:46 Nystatin (Nystop Topical Powder) 1 gm TOP Q8H [facility] Last Admin: 04/20/17 08:23 Dose: 1 gra Pantoprazole Sodium (Protonix Susp) 40 mg PO DAILY [facility] Last Admin: 04/20/17 09:35 Dose: 40 mg Rosuvastatin Calcium (Crestor) 10 mg PO HS [facility] Last Admin: 04/19/17 21:37 Dose: 10 mg Thiamine HCl (Vitamin B1 Inj) 100 mg IV Q8H [facility] Last Admin: 04/20/17 06:04 Dose: 100 mg Timolol Maleate (Timoptic 0.5% Ophth Soln) 1 drop OU BID [facility] Last Admin: 04/20/17 09:36 Dose: 1 drop Vitamin B Complex/Vit C/Folic Acid (Nephro-Alonzo) 1 tab PO 0800 [facility] Last Admin: 04/20/17 08:22 Dose: 1 tab - Labs Labs: 04/18/17 13:52 04/18/17 13:52 PT 11.7 SECONDS (9.7-12.2) 04/11/17 18:55 INR 1.0 04/11/17 18:55 APTT 29 SECONDS (21-34) D 04/18/17 13:52 - Constitutional Appears: No Acute Distress, Chronically Ill - Head Exam Head Exam: ATRAUMATIC, NORMOCEPHALIC - Eye Exam Eye Exam: Normal appearance - ENT Exam ENT Exam: Mucous Membranes Moist - Respiratory Exam Respiratory Exam: NORMAL BREATHING PATTERN - Cardiovascular Exam Cardiovascular Exam: REGULAR RHYTHM - GI/Abdominal Exam GI & Abdominal Exam: Soft. absent: Tenderness - Extremities Exam Additional comments: s/p L BKA - Purulent drainage coming from the lateral portion of incision with erythema - Neurological Exam Neurological Exam: Alert, Awake - Psychiatric Exam Additional comments: Labile affect - Skin Skin Exam: Dry, Warm Assessment and Plan - Assessment and Plan (Free Text) Plan: 71F s/p Left BK with PE, and DVT in RUE -Dressing changes BID with santyl of left lower extremity - jay and sutures remain in place for now -Anticoagulation -Management as per primary -No acute surgical intervention at this time -Discussed with Dr. Bobo Sotelo PGY1
[2017-04-20 13:58] LABS: BASO % 0.1 % (0.0-2.0); EOS # 0.2 K/uL (0.0-0.7); EOS % 0.8 % (0.0-4.0); HEMATOCRIT 41.7 % (34.0-47.0); LYMPH # 1.5 K/uL (1.0-4.3); LYMPH % 6.7 % (20.0-40.0); MEAN CELL VOLUME 91.9 fL (81.0-99.0); MEAN CORPUSCULAR HGB CONC 32.6 g/dL (33.0-37.0); MEAN PLATELET VOLUME 8.9 fL (7.2-11.7); MONO # 0.5 K/uL (0.0-0.8); MONO % 2.1 % (0.0-10.0); NRBC % 0.6 % (0.0-2.0); PLATELET COUNT 140 K/uL (130-400); WHITE BLOOD COUNT 22.8 K/uL (4.8-10.8)
[2017-04-20] MEDS: Ferric Sodium Gluconat Complex 62.5 mg/5 ml Vial IVPB SCH (14:40)
[2017-04-20 14:57] LABS: EOSINOPHIL 1 % (0-4); NEUTROPHIL 88 % (50-75); TOTAL CELLS COUNTED 100
[2017-04-20 15:08] LABS: ALB/GLOB RATIO 1.1 (1.0-2.1); BILIRUBIN,TOTAL 0.8 mg/dL (0.2-1.3); CALCIUM 7.6 mg/dl (8.6-10.4); MAGNESIUM 1.8 mg/dL (1.6-2.3); PHOSPHOROUS 2.7 mg/dL (2.5-4.5); POTASSIUM 3.2 mmol/L (3.6-5.2); TOTAL PROTEIN 5.5 g/dL (6.3-8.3)
--- NOTE | 2017-04-20 15:15 | CP.PCM.PN ---
Subjective - Date & Time of Evaluation Date of Evaluation: 04/20/17 Time of Evaluation: 07:30 - Subjective Subjective: Medicine Note ([facility] service) Patient was seen and examined at bedside. Unable to evaluate appropriate ROS as patient was not very verbal and uncooperative due to baseline mental status change. Objective - Vital Signs/Intake and Output Vital Signs (last 24 hours): Temp Pulse Resp BP Pulse Ox 97.9 F 78 27 H 152/68 H 100 04/20/17 10:05 04/20/17 13:05 04/20/17 13:05 04/20/17 13:05 04/20/17 13:05 Intake and Output: 04/20/17 04/20/17 06:59 18:59 Intake Total 578 Output Total 50 Balance 528 - Medications Medications: Current Medications Acetaminophen (Tylenol 325mg Tab) 650 mg PO Q6 PRN PRN Reason: Pain, moderate (4-7) Last Admin: 04/20/17 14:48 Dose: 650 mg Apixaban (Eliquis) 10 mg PO BID [facility] Stop: 04/20/17 18:01 Last Admin: 04/20/17 09:34 Dose: 10 mg Apixaban (Eliquis) 5 mg PO BID [facility] Brimonidine Tartrate (Alphagan 0.2% Opht) 1 ml OU TID [facility] Last Admin: 04/20/17 14:00 Dose: 1 drop Collagenase (Santyl) 0 gm TOP Q12H [facility] Last Admin: 04/20/17 06:05 Dose: 1 applic Dextrose (Dextrose 50% Inj) 0 ml IV STAT PRN; Protocol PRN Reason: Hypoglycemia Protocol Epoetin Maxwell (Procrit) 10,000 unit IV TTS [facility] Stop: 04/23/17 10:01 Ergocalciferol (Drisdol 50,000 Intl Units Cap) 1 cap PO Q7D [facility] Last Admin: 04/18/17 22:30 Dose: Not Given Ferric Sodium Gluconate Complex (Ferrlecit) 125 mg IVPB MWF [facility] Stop: 04/22/17 09:01 Last Admin: 04/20/17 14:40 Dose: 125 mg Furosemide (Lasix) 40 mg PO DAILY [facility] Last Admin: 04/20/17 09:34 Dose: 40 mg Glucagon (Glucagen Diagnostic Kit) 1 mg IM STAT PRN; Protocol PRN Reason: Hypoglycemia Protocol Hydralazine HCl (Apresoline) 25 mg PO BID [facility] Last Admin: 04/20/17 09:37 Dose: Not Given Dextrose/Sodium Chloride (Dextrose 5%/0.45% Ns 1000 Ml) 1,000 mls @ 60 mls/hr IV .[id number] [facility] Last Admin: 04/12/17 13:19 Dose: 60 mls/hr Piperacillin Sod/Tazobactam Sod (Zosyn 2.25 Gm Iv Premix) 2.25 gm in 50 mls @ 200 mls/hr IVPB Q8 [facility] Last Admin: 04/20/17 13:59 Dose: 200 mls/hr Linezolid (Zyvox 600mg/300ml D5w) 600 mg in 300 mls @ 200 mls/hr IVPB Q12H [facility] Last Admin: 04/20/17 13:04 Dose: 200 mls/hr Gentamicin Sulfate/Sodium Chloride (Gentamicin Iv 80 Mg Premix) 80 mg in 100 mls @ 100 mls/hr IVPB TTS [facility] Last Admin: 04/18/17 16:24 Dose: 100 mls/hr Dextrose/Sodium Chloride (Dextrose 5%/0.9% Ns 1000 Ml) 1,000 mls @ 42 mls/hr IV .[id number] [facility] Last Admin: 04/19/17 21:30 Dose: Not Given Dextrose (Dextrose 5% In Water 1000 Ml) 1,000 mls @ 0 mls/hr IV .Q0M PRN; Protocol; Per Protocol PRN Reason: Hypoglycemia Protocol Insulin Glargine (Lantus) 15 unit SC [facility] Last Admin: 04/19/17 21:38 Dose: 15 u Insulin Human Regular (Novolin R) [address] [facility] PRN Reason: Protocol Last Admin: 04/20/17 14:01 Dose: Not Given Latanoprost (Xalatan Opht) 0.02 ml OU [facility] Last Admin: 04/19/17 21:39 Dose: 0.02 ml Nystatin (Nystop Topical Powder) 1 gm TOP Q8H [facility] Last Admin: 04/20/17 08:23 Dose: 1 gra Pantoprazole Sodium (Protonix Susp) 40 mg PO DAILY [facility] Last Admin: 04/20/17 09:35 Dose: 40 mg Rosuvastatin Calcium (Crestor) 10 mg PO [facility] Last Admin: 04/19/17 21:37 Dose: 10 mg Thiamine HCl (Vitamin B1 Inj) 100 mg IV Q8H [facility] Last Admin: 04/20/17 14:41 Dose: 100 mg Timolol Maleate (Timoptic 0.5% Ophth Soln) 1 drop OU BID [facility] Last Admin: 04/20/17 09:36 Dose: 1 drop Vitamin B Complex/Vit C/Folic Acid (Nephro-Alonzo) 1 tab PO 0800 [facility] Last Admin: 04/20/17 08:22 Dose: 1 tab - Labs Labs: 04/20/17 13:53 04/20/17 13:53 PT 11.7 SECONDS (9.7-12.2) 04/11/17 18:55 INR 1.0 04/11/17 18:55 APTT 29 SECONDS (21-34) D 04/18/17 13:52 - Constitutional Appears: No Acute Distress - Head Exam Head Exam: ATRAUMATIC - Eye Exam Eye Exam: EOMI - Respiratory Exam Respiratory Exam: Clear to Ausculation Bilateral, NORMAL BREATHING PATTERN - Cardiovascular Exam Cardiovascular Exam: Irregular Rhythm, +S2 - GI/Abdominal Exam GI & Abdominal Exam: Soft, Normal Bowel Sounds. absent: Firm, Guarding, Rigid - Extremities Exam Extremities Exam: Pedal Edema Additional comments: Left BKA, dressing C/D/I Right leg +1 pitting edema - Neurological Exam Neurological Exam: absent: Alert, Awake - Skin Skin Exam: Pallor Assessment and Plan (1) Sepsis Assessment & Plan: Infectious Disease, Dr. Wellington on board----> help appreciated Leukocytosis with no bandemia On admission: WBC: 21.3, HR: 107 Sacral culture (04/11/17) : Gram negative kendy, proteus mirabilis Blood culture (04/11/17): Gram positive cocci, Staphyl aureus and coag-negative staph S/P Left BKA (04/11/17): Gram negative kendy, proteus mirabilis, klebsiella pneumonia and vancomycin resistance E.faecium Medications: * Gentamicin 80mg IVPB HD * Zosyn 2.25gm IVPB Q8H * Vancomycin 1gm IVPB on HD---> Discontinued * Linezolid 600mg IVPB Q12H ---> Started on 04/14 Status: Acute (2) Pulmonary embolism Assessment & Plan: Chest CT angio: Filling defects are noted at both upper lobes pulmonary arteries suggestive of pulmonary embolus. Large bilateral pleural effusion. Mild cardiomegaly. [id number] pericardial effusion. [id number] anasarca. Lower lobe atelectasis due to pleural effusion. Medications: Discontinued Heparin drip Started on Eliquis 10mg PO [id number]; after 7 days decrease to 5mg PO daily * 5/7 days of eliquis 10mg PO daily (04/20/17) Status: Acute (3) End stage renal disease on dialysis Assessment & Plan: [employer], Dr. Ambrose---> Help appreciated * Management as per recommendation Management/Medications: On HD (TTS) ---> MWF ( for this admission) * Via Left Arm shunt * PICC line inserted by IR 03/23/17 - DVT in R upper extremity Ergocalciferol 1 cap PO Q7D [facility] 10,000 unit IV MWF Ferric sodium gluconate 125 mg MWF Nephrovite Status: Chronic (4) Sacral decubitus ulcer, stage III Assessment & Plan: General Surgery, Dr. Broussard consulted * No surgical intervention at this time * Santyl for sacral decub ID, Dr. Wellington consulted Lab: Gram Negative kendy, proteus mirabilis Medication: * Gentamicin 80mg IVPB HD * Zosyn 2.25gm IVPB Q8H * Linezolid 600mg IVPB Q12H (started 04/14/17) Status: Acute (5) S/P BKA (below knee amputation) Assessment & Plan: General Surgery, Dr. Broussard---> Help appreciated * Management as per recommendation * BKA (03/30/17) ID, Dr. Wellington----> Help appreciated Lab: Wound culture: Gram negative kendy; proteus mirabilis, klebsiella pneumonia and vancomycin resistance E.faecium Medications: * Gentamicin 80mg IVPB HD * Zosyn 2.25gm IVPB Q8H * Linezolid 600mg IVPB Q12H Status: Acute (6) Anemia, chronic disease Assessment & Plan: H/H unstable * transfused 2 units of PRBC on HD (04/15/17) * Monitor H/H with am labs Medication: * Procrit 10,000 unit IV TTS ( on HD) * Vitamin B1 100mg IV Q8H * Status: Chronic (7) Glaucoma Assessment & Plan: Medications: * Timolol 0.5% OU BID * Latanoprost 0.02 ml OU HS * Brimonidine 1ml OU TID Status: Acute (8) DM2 (diabetes mellitus, type 2) Assessment & Plan: Management/Medication: * Accuchecks * ISS medium dose * Hypoglycemia protocol Status: Chronic (9) History of CHF (congestive heart failure) Assessment & Plan: Echo (03/09/17): EF=61%, please refer to the full report for complete impression Medication: * Lasix 40mg PO daily Status: Acute (10) Hypertension Assessment & Plan: Medication: * Norvasc 5mg PO daily (Held due to peripheral edema) * Hydralazine 25mg PO BID * Lisinopril 20mg PO daily Status: Chronic (11) History of hyperlipidemia Assessment & Plan: Crestor 10mg PO HS Status: Acute (12) Prophylactic measure Assessment & Plan: GI: Protonix 40mg PO daily DVT: Heparin 5,000 units SC Q12H PT and OT Status: Acute
[2017-04-20] MEDS: Dextrose 5%/0.9% NS 1,000 ML IV SCH ×2 (18:01→22:13)
[2017-04-20] MEDS: (Lantus) Insulin Glargine, Recombinant SC SCH (22:07)
[2017-04-20] MEDS: Latanoprost 2.5 ml Opht Soln OU SCH (22:08)
--- NOTE | 2017-04-21 00:15 | CP.PCM.PN ---
Subjective - Date & Time of Evaluation Date of Evaluation: 04/20/17 Time of Evaluation: 15:00 - Subjective Subjective: SEEN ON RENAL F/U HAD HD EARLIAR TODAY WE R TRYING TO REMOVE MUCH POSIBLE OF FLIUD ON HD STILL EDEMATOUS ALL PREVIOUS EMR REVIEWED Objective - Vital Signs/Intake and Output Vital Signs (last 24 hours): Temp Pulse Resp BP Pulse Ox 97.3 F L 68 18 92/68 L 100 04/20/17 23:59 04/21/17 00:00 04/21/17 00:00 04/20/17 22:19 04/21/17 00:00 Intake and Output: 04/20/17 04/21/17 18:59 06:59 Intake Total 780 Output Total 200 Balance 580 - Medications Medications: Current Medications Acetaminophen (Tylenol 325mg Tab) 650 mg PO Q6 PRN PRN Reason: Pain, moderate (4-7) Last Admin: 04/20/17 14:48 Dose: 650 mg Apixaban (Eliquis) 5 mg PO BID [facility] Brimonidine Tartrate (Alphagan 0.2% Opht) 1 ml OU TID [facility] Last Admin: 04/20/17 17:59 Dose: 1 drop Collagenase (Santyl) 0 gm TOP Q12H [facility] Last Admin: 04/20/17 17:00 Dose: 1 applic Dextrose (Dextrose 50% Inj) 0 ml IV STAT PRN; Protocol PRN Reason: Hypoglycemia Protocol Epoetin Maxwell (Procrit) 10,000 unit IV TTS [facility] Stop: 04/23/17 10:01 Ergocalciferol (Drisdol 50,000 Intl Units Cap) 1 cap PO Q7D [facility] Last Admin: 04/18/17 22:30 Dose: Not Given Ferric Sodium Gluconate Complex (Ferrlecit) 125 mg IVPB MWF [facility] Stop: 04/22/17 09:01 Last Admin: 04/20/17 14:40 Dose: 125 mg Furosemide (Lasix) 40 mg PO DAILY [facility] Last Admin: 04/20/17 09:34 Dose: 40 mg Glucagon (Glucagen Diagnostic Kit) 1 mg IM STAT PRN; Protocol PRN Reason: Hypoglycemia Protocol Hydralazine HCl (Apresoline) 25 mg PO BID [facility] Last Admin: 04/20/17 17:57 Dose: 25 mg Dextrose/Sodium Chloride (Dextrose 5%/0.45% Ns 1000 Ml) 1,000 mls @ 60 mls/hr IV .[id number] [facility] Last Admin: 04/12/17 13:19 Dose: 60 mls/hr Piperacillin Sod/Tazobactam Sod (Zosyn 2.25 Gm Iv Premix) 2.25 gm in 50 mls @ 200 mls/hr IVPB Q8 [facility] Last Admin: 04/20/17 22:05 Dose: 200 mls/hr Linezolid (Zyvox 600mg/300ml D5w) 600 mg in 300 mls @ 200 mls/hr IVPB Q12H [facility] Last Admin: 04/20/17 13:04 Dose: 200 mls/hr Gentamicin Sulfate/Sodium Chloride (Gentamicin Iv 80 Mg Premix) 80 mg in 100 mls @ 100 mls/hr IVPB TTS [facility] Last Admin: 04/18/17 16:24 Dose: 100 mls/hr Dextrose/Sodium Chloride (Dextrose 5%/0.9% Ns 1000 Ml) 1,000 mls @ 42 mls/hr IV .[id number] [facility] Last Admin: 04/20/17 22:13 Dose: Not Given Dextrose (Dextrose 5% In Water 1000 Ml) 1,000 mls @ 0 mls/hr IV .Q0M PRN; Protocol; Per Protocol PRN Reason: Hypoglycemia Protocol Insulin Glargine (Lantus) 15 unit SC [facility] Last Admin: 04/20/17 22:07 Dose: 10 u Insulin Human Regular (Novolin R) 0 unit SC [facility] PRN Reason: Protocol Last Admin: 04/20/17 22:07 Dose: Not Given Latanoprost (Xalatan Opht) 0.02 ml OU [facility] Last Admin: 04/20/17 22:08 Dose: 0.02 ml Nystatin (Nystop Topical Powder) 1 gm TOP Q8H [facility] Last Admin: 04/20/17 17:00 Dose: 1 gra Pantoprazole Sodium (Protonix Susp) 40 mg PO DAILY [facility] Last Admin: 04/20/17 09:35 Dose: 40 mg Rosuvastatin Calcium (Crestor) 10 mg PO [facility] Last Admin: 04/20/17 22:06 Dose: 10 mg Thiamine HCl (Vitamin B1 Inj) 100 mg IV Q8H [facility] Last Admin: 04/20/17 22:11 Dose: 100 mg Timolol Maleate (Timoptic 0.5% Ophth Soln) 1 drop OU BID [facility] Last Admin: 04/20/17 18:55 Dose: 1 drop Vitamin B Complex/Vit C/Folic Acid (Nephro-Alonzo) 1 tab PO 0800 [facility] Last Admin: 04/20/17 08:22 Dose: 1 tab - Labs Labs: 04/20/17 13:53 04/20/17 13:53 PT 11.7 SECONDS (9.7-12.2) 04/11/17 18:55 INR 1.0 04/11/17 18:55 APTT 29 SECONDS (21-34) D 04/18/17 13:52 Assessment and Plan - Assessment and Plan (Free Text) Assessment: C/O CURRENT CARE C/O SUPPORTIVE TREATMENT
[2017-04-21] MEDS: Linezolid 600 mg in D5W 300 ml 600 MG/300 ML BAG IVPB SCH ×2 (01:01→11:51)
[2017-04-21] MEDS: Collagenase 250 Units/gm Ointment(30 gm) TOP SCH ×2 (05:10→17:52)
[2017-04-21] MEDS: Piperacill/Tazo 2.25gm in Dex 2.25 GM/50 ML BAG IVPB SCH ×3 (05:10→22:00)
[2017-04-21] MEDS: Thiamine 100 mg/ml Inj IV SCH ×3 (06:26→23:01)
[2017-04-21 06:35] LABS: BASO # 0.1 K/uL (0.0-0.2); BASO % 0.2 % (0.0-2.0); EOS # 0.1 K/uL (0.0-0.7); EOS % 0.6 % (0.0-4.0); HEMATOCRIT 34.1 % (34.0-47.0); LYMPH # 1.5 K/uL (1.0-4.3); LYMPH % 5.9 % (20.0-40.0); MEAN CORPUSCULAR HEMOGLOBIN 29.6 pg (27.0-31.0); MEAN CORPUSCULAR HGB CONC 32.2 g/dL (33.0-37.0); MEAN PLATELET VOLUME 9.2 fL (7.2-11.7); MONO # 0.4 K/uL (0.0-0.8); MONO % 1.7 % (0.0-10.0); NRBC % 0.1 % (0.0-2.0); PLATELET COUNT 125 K/uL (130-400); RED CELL DISTRIBUTION WIDTH 17.9 % (11.5-14.5); WHITE BLOOD COUNT 24.8 K/uL (4.8-10.8)
[2017-04-21 06:46] LABS: ALB/GLOB RATIO 0.7 (1.0-2.1); BILIRUBIN,TOTAL 0.3 mg/dL (0.2-1.3); CALCIUM 6.7 mg/dl (8.6-10.4); MAGNESIUM 1.7 mg/dL (1.6-2.3); PHOSPHOROUS 2.8 mg/dL (2.5-4.5); POTASSIUM 2.9 mmol/L (3.6-5.2); TOTAL PROTEIN 4.8 g/dL (6.3-8.3)
[2017-04-21] MEDS: (Novolin R) Insulin Human Regular 100 units/ml vial SC SCH ×4 (08:00→23:02)
[2017-04-21] MEDS: Nystatin 100,000 Units/gm Topical Pow(15 gm) TOP SCH ×2 (08:00→15:00)
[2017-04-21] MEDS: Multivitamin Vitamin B Complex (Nephro-Vite) Tab PO SCH (09:00)
[2017-04-21 09:13] LABS: NEUTROPHIL 83 % (50-75); TOTAL CELLS COUNTED 100
[2017-04-21] MEDS ORDERED: Magnesium Sulfate 1 gm in D5W 1 GM/100 ML BAG IVPB ONE (10:00)
[2017-04-21] MEDS: Gentamicin 80 mg in 0.9% NS 80 MG/100 ML BAG IVPB SCH (10:07)
[2017-04-21] MEDS: Brimonidine 0.2% Opth Sol (5ml) OU SCH ×3 (10:09→17:50)
[2017-04-21] MEDS: Pantoprazole 40 mg Susp UD PO SCH (10:13)
--- NOTE | 2017-04-21 12:36 | CP.PCM.PN ---
Subjective - Date & Time of Evaluation Date of Evaluation: 04/21/17 Time of Evaluation: 07:00 - Subjective Subjective: events noted iv rx renewed may need debridement poor prognosis Objective - Vital Signs/Intake and Output Vital Signs (last 24 hours): Temp Pulse Resp BP Pulse Ox 98 F 72 18 138/90 100 04/21/17 04:00 04/21/17 04:00 04/21/17 04:00 04/21/17 10:08 04/21/17 04:00 Intake and Output: 04/21/17 04/21/17 06:59 18:59 Intake Total 1094 Balance 1094 - Medications Medications: Current Medications Acetaminophen (Tylenol 325mg Tab) 650 mg PO Q6 PRN PRN Reason: Pain, moderate (4-7) Last Admin: 04/20/17 14:48 Dose: 650 mg Apixaban (Eliquis) 5 mg PO BID [facility] Brimonidine Tartrate (Alphagan 0.2% Opht) 1 ml OU TID [facility] Last Admin: 04/21/17 10:09 Dose: 1 drop Collagenase (Santyl) 0 gm TOP Q12H [facility] Last Admin: 04/21/17 05:10 Dose: 1 applic Dextrose (Dextrose 50% Inj) 0 ml IV STAT PRN; Protocol PRN Reason: Hypoglycemia Protocol Last Admin: 04/21/17 06:55 Dose: 50 ml Epoetin Maxwell (Procrit) 10,000 unit IV TTS [facility] Stop: 04/23/17 10:01 Ergocalciferol (Drisdol 50,000 Intl Units Cap) 1 cap PO Q7D [facility] Last Admin: 04/18/17 22:30 Dose: Not Given Ferric Sodium Gluconate Complex (Ferrlecit) 125 mg IVPB MWF [facility] Stop: 04/22/17 09:01 Last Admin: 04/20/17 14:40 Dose: 125 mg Furosemide (Lasix) 40 mg PO DAILY [facility] Last Admin: 04/21/17 10:08 Dose: 40 mg Glucagon (Glucagen Diagnostic Kit) 1 mg IM STAT PRN; Protocol PRN Reason: Hypoglycemia Protocol Hydralazine HCl (Apresoline) 25 mg PO BID [facility] Last Admin: 04/21/17 10:08 Dose: 25 mg Dextrose/Sodium Chloride (Dextrose 5%/0.45% Ns 1000 Ml) 1,000 mls @ 60 mls/hr IV .[id number] [facility] Last Admin: 04/12/17 13:19 Dose: 60 mls/hr Piperacillin Sod/Tazobactam Sod (Zosyn 2.25 Gm Iv Premix) 2.25 gm in 50 mls @ 200 mls/hr IVPB Q8 [facility] Last Admin: 04/21/17 05:10 Dose: 200 mls/hr Linezolid (Zyvox 600mg/300ml D5w) 600 mg in 300 mls @ 200 mls/hr IVPB Q12H [facility] Last Admin: 04/21/17 11:51 Dose: 200 mls/hr Gentamicin Sulfate/Sodium Chloride (Gentamicin Iv 80 Mg Premix) 80 mg in 100 mls @ 100 mls/hr IVPB TTS [facility] Last Admin: 04/21/17 10:07 Dose: 100 mls/hr Dextrose/Sodium Chloride (Dextrose 5%/0.9% Ns 1000 Ml) 1,000 mls @ 42 mls/hr IV .[id number] [facility] Last Admin: 04/20/17 22:13 Dose: Not Given Dextrose (Dextrose 5% In Water 1000 Ml) 1,000 mls @ 0 mls/hr IV .Q0M PRN; Protocol; Per Protocol PRN Reason: Hypoglycemia Protocol Insulin Glargine (Lantus) 15 unit SC [facility] Last Admin: 04/20/17 22:07 Dose: 10 u Insulin Human Regular (Novolin R) 0 unit SC [facility] PRN Reason: Protocol Last Admin: 04/21/17 11:52 Dose: Not Given Latanoprost (Xalatan Opht) 0.02 ml OU [facility] Last Admin: 04/20/17 22:08 Dose: 0.02 ml Morphine Sulfate (Morphine) 2 mg IV Q6 PRN PRN Reason: Pain, severe (8-10) Last Admin: 04/21/17 11:49 Dose: 2 mg Nystatin (Nystop Topical Powder) 1 gm TOP Q8H [facility] Last Admin: 04/21/17 08:00 Dose: 1 gra Pantoprazole Sodium (Protonix Susp) 40 mg PO DAILY [facility] Last Admin: 04/21/17 10:13 Dose: 40 mg Rosuvastatin Calcium (Crestor) 10 mg PO [facility] Last Admin: 04/20/17 22:06 Dose: 10 mg Thiamine HCl (Vitamin B1 Inj) 100 mg IV Q8H [facility] Last Admin: 04/21/17 06:26 Dose: 100 mg Timolol Maleate (Timoptic 0.5% Ophth Soln) 1 drop OU BID [facility] Last Admin: 04/21/17 10:11 Dose: 1 drop Vitamin B Complex/Vit C/Folic Acid (Nephro-Alonzo) 1 tab PO 0800 [facility] Last Admin: 04/21/17 09:00 Dose: 1 tab - Labs Labs: 04/21/17 06:15 04/21/17 06:15 PT 11.7 SECONDS (9.7-12.2) 04/11/17 18:55 INR 1.0 04/11/17 18:55 APTT 42 SECONDS (21-34) H D 04/21/17 06:15 - Constitutional Appears: Non-toxic, Chronically Ill - Head Exam Head Exam: NORMOCEPHALIC - Eye Exam Eye Exam: PERRL - ENT Exam ENT Exam: Mucous Membranes Dry - Neck Exam Neck Exam: absent: Lymphadenopathy - Respiratory Exam Respiratory Exam: Decreased Breath Sounds - Cardiovascular Exam Cardiovascular Exam: REGULAR RHYTHM - GI/Abdominal Exam GI & Abdominal Exam: Distended, Soft - Rectal Exam Rectal Exam: Deferred - Exam Exam: NORMAL INSPECTION - Extremities Exam Extremities Exam: absent: Pedal Edema - Back Exam Back Exam: absent: CVA tenderness (L), CVA tenderness (R) - Neurological Exam Neurological Exam: Alert, Altered, Awake Neuro motor strength exam: Left Upper Extremity: 2/1, Right Upper Extremity: 2/1 , Left Lower Extremity: 2/1, Right Lower Extremity: 2/1 - Psychiatric Exam Psychiatric exam: Depressed - Skin Skin Exam: Dry Assessment and Plan (1) Elevated WBC count Status: Acute (2) S/P BKA (below knee amputation) Status: Acute (3) Sacral decubitus ulcer, stage III Status: Acute (4) Sepsis Status: Acute
[2017-04-21] MEDS ORDERED: Dextrose 50% VIAL Inj (50 ml) IV ONE (16:25)
[2017-04-21] MEDS ORDERED: Dextrose 50% SYRINGE Inj (50 ml) IV STA (16:35)
--- NOTE | 2017-04-21 17:52 | CP.PCM.PN ---
Subjective - Date & Time of Evaluation Date of Evaluation: 04/21/17 Time of Evaluation: 07:45 - Subjective Subjective: Medicine note ( PGY-1)----> Dr. Myrick's service Patient was seen and examined at bedside. Patient was quite agitated this morning. Unable to evaluate appropriate ROS as patient was not very verbal and uncooperative due to current mental status and condition. Objective - Vital Signs/Intake and Output Vital Signs (last 24 hours): Temp Pulse Resp BP Pulse Ox 97.3 F L 78 19 102/83 99 04/21/17 16:00 04/21/17 16:00 04/21/17 16:00 04/21/17 16:00 04/21/17 16:00 Intake and Output: 04/21/17 04/21/17 06:59 18:59 Intake Total 1094 Balance 1094 - Medications Medications: Current Medications Acetaminophen (Tylenol 325mg Tab) 650 mg PO Q6 PRN PRN Reason: Pain, moderate (4-7) Last Admin: 04/20/17 14:48 Dose: 650 mg Apixaban (Eliquis) 5 mg PO BID [facility] Brimonidine Tartrate (Alphagan 0.2% Opht) 1 ml OU TID [facility] Last Admin: 04/21/17 17:50 Dose: 1 drop Collagenase (Santyl) 0 gm TOP Q12H [facility] Last Admin: 04/21/17 05:10 Dose: 1 applic Dextrose (Dextrose 50% Inj) 0 ml IV STAT PRN; Protocol PRN Reason: Hypoglycemia Protocol Last Admin: 04/21/17 06:55 Dose: 50 ml Epoetin Maxwell (Procrit) 10,000 unit IV [facility] Stop: 04/27/17 09:01 Ergocalciferol (Drisdol 50,000 Intl Units Cap) 1 cap PO Q7D [facility] Last Admin: 04/18/17 22:30 Dose: Not Given Ferric Sodium [facility]conate [facility] Stop: 04/22/17 09:01 Last Admin: 04/20/17 14:40 Dose: 125 mg Furosemide (Lasix) 40 mg PO DAILY [facility] Last Admin: 04/21/17 10:08 Dose: 40 mg Glucagon (Glucagen Diagnostic Kit) 1 mg IM STAT PRN; Protocol PRN Reason: Hypoglycemia Protocol Hydralazine HCl (Apresoline) 25 mg PO BID [facility] Last Admin: 04/21/17 10:08 Dose: 25 mg Hydromorphone HCl (Dilaudid) 0.5 mg IVP Q6H PRN PRN Reason: Pain, severe (8-10) Dextrose/Sodium Chloride (Dextrose 5%/0.45% Ns 1000 Ml) 1,000 mls @ 60 mls/hr IV .[id number] [facility] Last Admin: 04/12/17 13:19 Dose: 60 mls/hr Piperacillin Sod/Tazobactam Sod (Zosyn 2.25 Gm Iv Premix) 2.25 gm in 50 mls @ 200 mls/hr IVPB Q8 [facility] Last Admin: 04/21/17 14:00 Dose: 200 mls/hr Linezolid (Zyvox 600mg/300ml D5w) 600 mg in 300 mls @ 200 mls/hr IVPB Q12H [facility] Last Admin: 04/21/17 11:51 Dose: 200 mls/hr Gentamicin Sulfate/Sodium Chloride (Gentamicin Iv 80 Mg Premix) 80 mg in 100 mls @ 100 mls/hr IVPB TTS [facility] Last Admin: 04/21/17 10:07 Dose: 100 mls/hr Dextrose/Sodium Chloride (Dextrose 5%/0.9% Ns 1000 Ml) 1,000 mls @ 42 mls/hr IV .[id number] [facility] Last Admin: 04/20/17 22:13 Dose: Not Given Dextrose (Dextrose 5% In Water 1000 Ml) 1,000 mls @ 0 mls/hr IV .Q0M PRN; Protocol; Per Protocol PRN Reason: Hypoglycemia Protocol Insulin Glargine (Lantus) 15 unit SC HS [facility] Last Admin: 04/20/17 22:07 Dose: 10 u Insulin Human Regular (Novolin R) 0 unit SC [facility] PRN Reason: Protocol Last Admin: 04/21/17 16:32 Dose: Not Given Latanoprost (Xalatan Opht) 0.02 ml OU HS [facility] Last Admin: 04/20/17 22:08 Dose: 0.02 ml Nystatin (Nystop Topical Powder) 1 gm TOP Q8H [facility] Last Admin: 04/21/17 15:00 Dose: 1 gra Pantoprazole Sodium (Protonix Susp) 40 mg PO DAILY [facility] Last Admin: 04/21/17 10:13 Dose: 40 mg Rosuvastatin Calcium (Crestor) 10 mg PO HS [facility] Last Admin: 04/20/17 22:06 Dose: 10 mg Thiamine HCl (Vitamin B1 Inj) 100 mg IV Q8H [facility] Last Admin: 04/21/17 14:00 Dose: 100 mg Timolol Maleate (Timoptic 0.5% Ophth Soln) 1 drop OU BID [facility] Last Admin: 04/21/17 10:11 Dose: 1 drop Vitamin B Complex/Vit C/Folic Acid (Nephro-Alonzo) 1 tab PO 0800 [facility] Last Admin: 04/21/17 09:00 Dose: 1 tab - Labs Labs: 04/21/17 06:15 04/21/17 06:15 PT 11.7 SECONDS (9.7-12.2) 04/11/17 18:55 INR 1.0 04/11/17 18:55 APTT 42 SECONDS (21-34) H D 04/21/17 06:15 - Constitutional Appears: No Acute Distress - Head Exam Head Exam: ATRAUMATIC - Eye Exam Eye Exam: EOMI - ENT Exam ENT Exam: Mucous Membranes Dry - Respiratory Exam Respiratory Exam: NORMAL BREATHING PATTERN Additional comments: Examination limited due to patient's condition Lungs are clear anteriorly and b/l posterior upper lobes - Cardiovascular Exam Cardiovascular Exam: REGULAR RHYTHM, +S1, +S2 - GI/Abdominal Exam GI & Abdominal Exam: Soft, Normal Bowel Sounds - Extremities Exam Additional comments: Left BKA Right +1 pitting edema - Neurological Exam Neurological Exam: Awake. absent: Oriented x3 - Skin Skin Exam: Pallor Additional comments: Edematous b/l extremities Assessment and Plan (1) Sepsis Assessment & Plan: Infectious Disease, Dr. Wellington on board----> help appreciated Leukocytosis with no bandemia * Continue to monitor leukocytosis On admission: WBC: 21.3, HR: 107 Sacral culture (04/11/17) : Gram negative kendy, proteus mirabilis Blood culture (04/11/17): Gram positive cocci, Staphyl aureus and coag-negative staph S/P Left BKA (04/11/17): Gram negative kendy, proteus mirabilis, klebsiella pneumonia and vancomycin resistance E.faecium Medications: * Gentamicin 80mg IVPB HD * Zosyn 2.25gm IVPB Q8H * Vancomycin 1gm IVPB on HD---> Discontinued * Linezolid 600mg IVPB Q12H ---> Started on 04/14 Status: Acute (2) Pulmonary embolism Assessment & Plan: Chest CT angio: Filling defects are noted at both upper lobes pulmonary arteries suggestive of pulmonary embolus. Large bilateral pleural effusion. Mild cardiomegaly. [id number] pericardial effusion. [id number] anasarca. Lower lobe atelectasis due to pleural effusion. Medications: Discontinued Heparin drip Started on Eliquis 10mg PO [id number]; after 7 days decrease to 5mg PO daily * 6/7 days of eliquis 10mg PO daily (04/20/17) Status: Acute (3) End stage renal disease on dialysis Assessment & Plan: Sedimentationist, Dr. Ambrose---> Help appreciated * Management as per recommendation Management/Medications: On HD (TTS) ---> MWF ( for this admission) * Via Left Arm shunt * PICC line inserted by IR 03/23/17 - DVT in R upper extremity Ergocalciferol 1 cap PO Q7D [facility] 10,000 unit IV MWF Ferric sodium gluconate 125 mg MWF Nephrovite Status: Chronic (4) Sacral decubitus ulcer, stage III Assessment & Plan: General Surgery, Dr. Broussard consulted * No surgical intervention at this time * Santyl for sacral decub ID, Dr. Wellington consulted Lab: Gram Negative kendy, proteus mirabilis Medication: * Gentamicin 80mg IVPB HD * Zosyn 2.25gm IVPB Q8H * Linezolid 600mg IVPB Q12H (started 04/14/17) Status: Acute (5) S/P BKA (below knee amputation) Assessment & Plan: General Surgery, Dr. Broussard---> Help appreciated * Management as per recommendation * BKA (03/30/17) ID, Dr. Wellington----> Help appreciated Lab: Wound culture: Gram negative kendy; proteus mirabilis, klebsiella pneumonia and vancomycin resistance E.faecium Medications: * Gentamicin 80mg IVPB HD * Zosyn 2.25gm IVPB Q8H * Linezolid 600mg IVPB Q12H Status: Acute (6) Anemia, chronic disease Assessment & Plan: H/H Stable * transfused 2 units of PRBC on HD (04/15/17) * Continue to monitor Medication: * Procrit 10,000 unit IV TTS ( on HD) Status: Chronic (7) Glaucoma Assessment & Plan: Medications: * Timolol 0.5% OU BID * Latanoprost 0.02 ml OU HS * Brimonidine 1ml OU TID Status: Acute (8) DM2 (diabetes mellitus, type 2) Assessment & Plan: Management/Medication: * Accuchecks * ISS medium dose * Hypoglycemia protocol Status: Chronic (9) History of CHF (congestive heart failure) Assessment & Plan: Echo (03/09/17): EF=61%, please refer to the full report for complete impression Medication: * Lasix 40mg PO daily Status: Acute (10) Hypertension Assessment & Plan: Medication: * Norvasc 5mg PO daily (Held due to peripheral edema) * Hydralazine 25mg PO BID * Lisinopril 20mg PO daily Status: Chronic (11) History of hyperlipidemia Assessment & Plan: Crestor 10mg PO HS Status: Acute (12) Prophylactic measure Assessment & Plan: GI: Protonix 40mg PO daily DVT: Heparin 5,000 units SC Q12H PT and OT Disposition: Possible LTAC placement All management as per Dr. Myrick Status: Acute
[2017-04-21] MEDS: (Lantus) Insulin Glargine, Recombinant SC SCH (23:01)
[2017-04-21] MEDS: Dextrose 5%/0.9% NS 1,000 ML IV SCH (23:02)
[2017-04-21] MEDS: Latanoprost 2.5 ml Opht Soln OU SCH (23:03)
[2017-04-22] MEDS: Nystatin 100,000 Units/gm Topical Pow(15 gm) TOP SCH ×3 (00:15→16:33)
[2017-04-22] MEDS: Dextrose 5%/0.9% NS 1,000 ML IV SCH ×2 (05:00→20:57)
[2017-04-22] MEDS ORDERED: Dextrose 50% VIAL Inj (50 ml) IV ONE (06:30)
[2017-04-22 06:36] LABS: HEMATOCRIT 33.9 % (34.0-47.0); MEAN CELL VOLUME 92.8 fL (81.0-99.0); MEAN CORPUSCULAR HEMOGLOBIN 29.4 pg (27.0-31.0); MEAN CORPUSCULAR HGB CONC 31.6 g/dL (33.0-37.0); MEAN PLATELET VOLUME 8.7 fL (7.2-11.7); PLATELET COUNT 152 K/uL (130-400); RED CELL DISTRIBUTION WIDTH 17.6 % (11.5-14.5); WHITE BLOOD COUNT 30.1 K/uL (4.8-10.8)
[2017-04-22] MEDS: Thiamine 100 mg/ml Inj IV SCH ×3 (06:44→23:26)
[2017-04-22] MEDS: Collagenase 250 Units/gm Ointment(30 gm) TOP SCH ×2 (06:44→17:35)
[2017-04-22] MEDS: Piperacill/Tazo 2.25gm in Dex 2.25 GM/50 ML BAG IVPB SCH ×3 (06:48→21:02)
[2017-04-22] MEDS: HYDROmorphone 0.5 mg/0.5 ml ISec IVP PRN ×3 (07:09→22:30)
[2017-04-22 07:12] LABS: ALB/GLOB RATIO 0.7 (1.0-2.1); BILIRUBIN,TOTAL 0.3 mg/dL (0.2-1.3); CALCIUM 6.7 mg/dl (8.6-10.4); MAGNESIUM 1.8 mg/dL (1.6-2.3); POTASSIUM 3.3 mmol/L (3.6-5.2); TOTAL PROTEIN 4.8 g/dL (6.3-8.3)
[2017-04-22] MEDS: (Novolin R) Insulin Human Regular 100 units/ml vial SC SCH ×4 (07:46→21:06)
[2017-04-22] MEDS: Multivitamin Vitamin B Complex (Nephro-Vite) Tab PO SCH (07:47)
[2017-04-22 08:30] LABS: LYMPH # 1.5 K/uL (1.0-4.3); MONO # 1.2 K/uL (0.0-0.8)
[2017-04-22 08:34] LABS: NEUTROPHIL 92 % (50-75); TOTAL CELLS COUNTED 100
[2017-04-22] MEDS ORDERED: Albumin Human 25% (12.5 gm/50 ml) IV ONE ×2 (08:52→10:30)
--- NOTE | 2017-04-22 08:57 | CP.PCM.PN ---
Subjective - Date & Time of Evaluation Date of Evaluation: 04/22/17 Time of Evaluation: 07:50 - Subjective Subjective: Medicine note ( PGY-1)----> Dr. Myrick's service Patient was seen and examined at bedside. Patient is unchanged clinically. As per nursing, there were no acute events overnight. Unable to evaluate appropriate ROS as patient was not very verbal and uncooperative due to current mental status and condition. Objective - Vital Signs/Intake and Output Vital Signs (last 24 hours): Temp Pulse Resp BP Pulse Ox 98 F 98 H 16 145/62 100 04/22/17 08:00 04/22/17 08:00 04/22/17 08:00 04/22/17 08:00 04/22/17 08:00 Intake and Output: 04/22/17 04/22/17 06:59 18:59 Intake Total 50 Output Total 300 Balance -250 - Medications Medications: Current Medications Acetaminophen (Tylenol 325mg Tab) 650 mg PO Q6 PRN PRN Reason: Pain, moderate (4-7) Last Admin: 04/20/17 14:48 Dose: 650 mg Apixaban (Eliquis) 5 mg PO BID [facility] Brimonidine Tartrate (Alphagan 0.2% Opht) 1 ml OU TID [facility] Last Admin: 04/21/17 17:50 Dose: 1 drop Collagenase (Santyl) 0 gm TOP Q12H [facility] Last Admin: 04/22/17 06:44 Dose: 1 applic Dextrose (Dextrose 50% Inj) 0 ml IV STAT PRN; Protocol PRN Reason: Hypoglycemia Protocol Last Admin: 04/21/17 06:55 Dose: 50 ml Epoetin Maxwell (Procrit) 10,000 unit IV [facility] Stop: 04/27/17 09:01 Ergocalciferol (Drisdol 50,000 Intl Units Cap) 1 cap PO Q7D [facility] Last Admin: 04/18/17 22:30 Dose: Not Given Ferric Sodium Gluconate Complex (Ferrlecit) 125 mg IVPB [facility] Stop: 04/22/17 09:01 Last Admin: 04/20/17 14:40 Dose: 125 mg Furosemide (Lasix) 40 mg PO DAILY [facility] Last Admin: 04/21/17 10:08 Dose: 40 mg Glucagon (Glucagen Diagnostic Kit) 1 mg IM STAT PRN; Protocol PRN Reason: Hypoglycemia Protocol Hydralazine HCl (Apresoline) 25 mg PO BID [facility] Last Admin: 04/21/17 17:51 Dose: 25 mg Hydromorphone HCl (Dilaudid) 0.5 mg IVP Q6H PRN PRN Reason: Pain, severe (8-10) Last Admin: 04/22/17 07:09 Dose: 0.5 mg Dextrose/Sodium Chloride (Dextrose 5%/0.45% Ns 1000 Ml) 1,000 mls @ 60 mls/hr IV .[id number] [facility] Last Admin: 04/12/17 13:19 Dose: 60 mls/hr Piperacillin Sod/Tazobactam Sod (Zosyn 2.25 Gm Iv Premix) 2.25 gm in 50 mls @ 200 mls/hr IVPB Q8 [facility] Last Admin: 04/22/17 06:48 Dose: 200 mls/hr Linezolid (Zyvox 600mg/300ml D5w) 600 mg in 300 mls @ 200 mls/hr IVPB Q12H [facility] Last Admin: 04/22/17 00:00 Dose: 200 mls/hr Gentamicin Sulfate/Sodium Chloride (Gentamicin Iv 80 Mg Premix) 80 mg in 100 mls @ 100 mls/hr IVPB TTS [facility] Last Admin: 04/21/17 10:07 Dose: 100 mls/hr Dextrose/Sodium Chloride (Dextrose 5%/0.9% Ns 1000 Ml) 1,000 mls @ 42 mls/hr IV .[id number] [facility] Last Admin: 04/22/17 05:00 Dose: 42 mls/hr Dextrose (Dextrose 5% In Water 1000 Ml) 1,000 mls @ 0 mls/hr IV .Q0M PRN; Protocol; Per Protocol PRN Reason: Hypoglycemia Protocol Potassium Chloride (Potassium Chloride 20 Meq/100 Ml) 20 meq in 100 mls @ 50 mls/hr IVPB ONCE ONE Stop: 04/22/17 10:51 Insulin Glargine (Lantus) 15 unit SC [facility] Last Admin: 04/21/17 23:01 Dose: 5 u Insulin Human Regular (Novolin R) 0 unit SC ACHS [facility] PRN Reason: Protocol Last Admin: 04/22/17 07:46 Dose: Not Given Latanoprost (Xalatan Opht) 0.02 ml OU HS [facility] Last Admin: 04/21/17 23:03 Dose: 0.02 ml Megestrol Acetate (Megace) 40 mg PO DAILY [facility] Nystatin (Nystop Topical Powder) 1 gm TOP Q8H [facility] Last Admin: 04/22/17 07:58 Dose: 1 gra Pantoprazole Sodium (Protonix Susp) 40 mg PO DAILY [facility] Last Admin: 04/21/17 10:13 Dose: 40 mg Rosuvastatin Calcium (Crestor) 10 mg PO HS [facility] Last Admin: 04/21/17 23:01 Dose: 10 mg Thiamine HCl (Vitamin B1 Inj) 100 mg IV Q8H [facility] Last Admin: 04/22/17 06:44 Dose: 100 mg Timolol Maleate (Timoptic 0.5% Oph Soln) 1 drop OU BID [facility] Last Admin: 04/21/17 17:51 Dose: 1 drop Vitamin B Complex/Vit C/Folic Acid (Nephro-Alonzo) 1 tab PO 0800 [facility] Last Admin: 04/22/17 07:47 Dose: 1 tab - Labs Labs: 04/22/17 06:29 04/22/17 06:29 PT 11.7 SECONDS (9.7-12.2) 04/11/17 18:55 INR 1.0 04/11/17 18:55 APTT 32 SECONDS (21-34) D 04/22/17 06:29 - Constitutional Appears: No Acute Distress - Head Exam Head Exam: ATRAUMATIC - Eye Exam Eye Exam: EOMI - ENT Exam ENT Exam: Mucous Membranes Dry - Respiratory Exam Respiratory Exam: NORMAL BREATHING PATTERN Additional comments: Examination limited due to patient's condition Lungs are clear anteriorly and b/l posterior upper lobes - Cardiovascular Exam Cardiovascular Exam: REGULAR RHYTHM, +S1, +S2 - GI/Abdominal Exam GI & Abdominal Exam: Soft, Normal Bowel Sounds. absent: Tenderness - Extremities Exam Extremities Exam: Pedal Edema Additional comments: Left BKA Right +1 pitting edema - Neurological Exam Neurological Exam: Alert, Awake. absent: Oriented x3 - Psychiatric Exam Psychiatric exam: Agitated, Anxious, Depressed - Skin Skin Exam: Pallor Assessment and Plan (1) Sepsis Assessment & Plan: Infectious Disease, Dr. Wellington on board----> help appreciated Leukocytosis with no bandemia * Continue to monitor leukocytosis On admission: WBC: 21.3, HR: 107 Sacral culture (04/11/17) : Gram negative kendy, proteus mirabilis Blood culture (04/11/17): Gram positive cocci, Staphyl aureus and coag-negative staph S/P Left BKA (04/11/17): Gram negative kendy, proteus mirabilis, klebsiella pneumonia and vancomycin resistance E.faecium Medications/management: * Gentamicin 80mg IVPB HD * Zosyn 2.25gm IVPB Q8H * Vancomycin 1gm IVPB on HD---> Discontinued * Linezolid 600mg IVPB Q12H ---> Started on 04/14 * Plans for Bedside autolytic debridement Status: Acute (2) Pulmonary embolism Assessment & Plan: Assessment & Plan: Chest CT angio: Filling defects are noted at both upper lobes pulmonary arteries suggestive of pulmonary embolus. Large bilateral pleural effusion. Mild cardiomegaly. [id number] pericardial effusion. [id number] anasarca. Lower lobe atelectasis due to pleural effusion. Medications: Discontinued Heparin drip Started on Eliquis 10mg PO [id number]; after 7 days decrease to 5mg PO daily * 7/7 days of eliquis 10mg PO daily (04/22/17) Status: Acute (3) End stage renal disease on dialysis Assessment & Plan: Program Schedule Clerk, Dr. Ambrose---> Help appreciated * Management as per recommendation Management/Medications: On HD (TTS) ---> MWF ( for this admission) * Via Left Arm shunt * PICC line inserted by IR 03/23/17 - DVT in R upper extremity Ergocalciferol 1 cap PO Q7D Procrit 10,000 unit IV MWF Ferric sodium gluconate 125 mg MWF Nephrovite Status: Chronic (4) Sacral decubitus ulcer, stage III Assessment & Plan: General Surgery, Dr. Broussard consulted * No surgical intervention at this time * Chinyere for sacral decub ID, Dr. Wellington consulted Lab: Gram Negative kendy, proteus mirabilis Medication: * Gentamicin 80mg IVPB HD * Zosyn 2.25gm IVPB Q8H * Linezolid 600mg IVPB Q12H (started 04/14/17) Status: Acute Status: Acute (5) S/P BKA (below knee amputation) Assessment & Plan: General Surgery, Dr. Broussard---> Help appreciated * Management as per recommendation * [place] (03/30/17) ID, Dr. Wellington----> Help appreciated Lab: Wound culture: Gram negative kendy; proteus mirabilis, klebsiella pneumonia and vancomycin resistance E.faecium Medications: * Gentamicin 80mg IVPB HD * Zosyn 2.25gm IVPB Q8H * Linezolid 600mg IVPB Q12H Status: Acute (6) Anemia, chronic disease Assessment & Plan: H/H Stable * transfused 2 units of PRBC on HD (04/15/17) * Continue to monitor Medication: * Procrit 10,000 unit IV TTS ( on HD) Status: Chronic (7) Glaucoma Assessment & Plan: Medications: * Timolol 0.5% OU BID * Latanoprost 0.02 ml OU HS * Brimonidine 1ml OU TID Status: Acute (8) DM2 (diabetes mellitus, type 2) Assessment & Plan: Management/Medication: * Accuchecks * ISS medium dose * Hypoglycemia protocol Status: Chronic (9) History of CHF (congestive heart failure) Assessment & Plan: Echo (03/09/17): EF=61%, please refer to the full report for complete impression Medication: * Lasix 40mg PO daily Status: Acute (10) Hypertension Assessment & Plan: Medication: * Norvasc 5mg PO daily (Held due to peripheral edema) * Hydralazine 25mg PO BID * Lisinopril 20mg PO daily Status: Chronic (11) History of hyperlipidemia Assessment & Plan: Crestor 10mg PO HS Status: Acute (12) Prophylactic measure Assessment & Plan: GI: Protonix 40mg PO daily DVT: Heparin 5,000 units SC Q12H Albumin 12.5 gm IV once PT and OT Disposition: Possible LTAC placement All management as per Dr. Myrick Status: Acute
[2017-04-22] MEDS ORDERED: Epoetin Alfa 10,000 unit/ml Dialysis IV SCH (09:00)
[2017-04-22] MEDS: Brimonidine 0.2% Opth Sol (5ml) OU SCH ×3 (09:18→17:35)
[2017-04-22] MEDS: Pantoprazole 40 mg Susp UD PO SCH (09:22)
[2017-04-22] MEDS: Epoetin Alfa 10,000 unit/ml Dialysis IV SCH (12:57)
[2017-04-22] MEDS: Linezolid 600 mg in D5W 300 ml 600 MG/300 ML BAG IVPB SCH ×3 (13:20→23:30)
[2017-04-22] MEDS: Gentamicin 80 mg in 0.9% NS 80 MG/100 ML BAG IVPB SCH (15:07)
[2017-04-22] MEDS: Dextrose 50% VIAL Inj (50 ml) IV PRN (16:25)
[2017-04-22] MEDS: Ferric Sodium Gluconat Complex 62.5 mg/5 ml Vial IVPB SCH (19:43)
[2017-04-22] MEDS: (Lantus) Insulin Glargine, Recombinant SC SCH (21:04)
[2017-04-22] MEDS: Latanoprost 2.5 ml Opht Soln OU SCH (21:05)
--- NOTE | 2017-04-22 23:59 | CP.PCM.PN ---
Subjective - Date & Time of Evaluation Date of Evaluation: 04/22/17 Time of Evaluation: 15:00 - Subjective Subjective: NO CHANGE IN CLINICAL CONDITION ONN HD M W F C/O CURRENT CARE Objective - Vital Signs/Intake and Output Vital Signs (last 24 hours): Temp Pulse Resp BP Pulse Ox 98.2 F 91 H 18 135/57 L 100 04/22/17 20:00 04/22/17 20:00 04/22/17 20:00 04/22/17 20:00 04/22/17 20:00 Intake and Output: 04/22/17 04/23/17 18:59 06:59 Intake Total 1004 Output Total 3300 Balance -2296 - Medications Medications: Current Medications Acetaminophen (Tylenol 325mg Tab) 650 mg PO Q6 PRN PRN Reason: Pain, moderate (4-7) Last Admin: 04/20/17 14:48 Dose: 650 mg Apixaban (Eliquis) 5 mg PO BID [facility] Apixaban (Eliquis) 10 mg PO DAILY [facility] Brimonidine Tartrate (Alphagan 0.2% Opht) 1 ml OU TID [facility] Last Admin: 04/22/17 17:35 Dose: 1 drop Collagenase (Santyl) 0 gm TOP Q12H [facility] Last Admin: 04/22/17 17:35 Dose: 1 applic Dextrose (Dextrose 50%) 0 ml IV STAT PRN; Protocol PRN Reason: Hypoglycemia Protocol Last Admin: 04/22/17 16:25 Dose: 50 ml Epoetin Maxwell (Procrit) 10,000 unit IV MWF [facility] Stop: 04/27/17 09:01 Last Admin: 04/22/17 12:57 Dose: 10,000 unit Ergocalciferol (Drisdol 50,000 Intl Units Cap) 1 cap PO Q7D [facility] Last Admin: 04/18/17 22:30 Dose: Not Given Furosemide (Lasix) 40 mg PO DAILY [facility] Last Admin: 04/22/17 09:22 Dose: 40 mg Glucagon (Glucagen Diagnostic Kit) 1 mg IM STAT PRN; Protocol PRN Reason: Hypoglycemia Protocol Hydralazine HCl (Apresoline) 25 mg PO BID [facility] Last Admin: 04/22/17 17:34 Dose: 25 mg Hydromorphone HCl (Dilaudid) 0.5 mg IVP Q6H PRN PRN Reason: Pain, severe (8-10) Last Admin: 04/22/17 22:30 Dose: 0.5 mg Dextrose/Sodium Chloride (Dextrose 5%/0.45% Ns 1000 Ml) 1,000 mls @ 60 mls/hr IV .[id number] [facility] Last Admin: 04/12/17 13:19 Dose: 60 mls/hr Piperacillin Sod/Tazobactam Sod (Zosyn 2.25 Gm Iv Premix) 2.25 gm in 50 mls @ 200 mls/hr IVPB Q8 [facility] Last Admin: 04/22/17 21:02 Dose: 200 mls/hr Linezolid (Zyvox 600mg/300ml D5w) 600 mg in 300 mls @ 200 mls/hr IVPB Q12H [facility] Last Admin: 04/22/17 23:30 Dose: 200 mls/hr Gentamicin Sulfate/Sodium Chloride (Gentamicin Iv 80 Mg Premix) 80 mg in 100 mls @ 100 mls/hr IVPB MWF [facility] Last Admin: 04/22/17 15:07 Dose: 100 mls/hr Insulin Glargine (Lantus) 15 unit SC HS [facility] Last Admin: 04/22/17 21:04 Dose: Not Given Insulin Human Regular (Novolin R) 0 unit SC ACHS [facility] PRN Reason: Protocol Last Admin: 04/22/17 21:06 Dose: Not Given Latanoprost (Xalatan Opht) 0.02 ml OU HS [facility] Last Admin: 04/22/17 21:05 Dose: 0.02 ml Megestrol Acetate (Megace) 40 mg PO DAILY [facility] Last Admin: 04/22/17 09:22 Dose: 40 mg Nystatin (Nystop Topical Powder) 1 gm TOP Q8H [facility] Last Admin: 04/22/17 16:33 Dose: 1 gra Pantoprazole Sodium (Protonix Susp) 40 mg PO DAILY [facility] Last Admin: 04/22/17 09:22 Dose: 40 mg Rosuvastatin Calcium (Crestor) 10 mg PO HS [facility] Last Admin: 04/22/17 21:03 Dose: 10 mg Thiamine HCl (Vitamin B1 Inj) 100 mg IV Q8H [facility] Last Admin: 04/22/17 23:26 Dose: 100 mg Timolol Maleate (Timoptic 0.5% Ophth Soln) 1 drop OU BID [facility] Last Admin: 04/22/17 17:35 Dose: 1 drop Vitamin B Complex/Vit C/Folic Acid (Nephro-Alonzo) 1 tab PO 0800 [facility] Last Admin: 04/22/17 07:47 Dose: 1 tab - Labs Labs: 04/22/17 06:29 04/22/17 06:29 PT 11.7 SECONDS (9.7-12.2) 04/11/17 18:55 INR 1.0 04/11/17 18:55 APTT 32 SECONDS (21-34) D 04/22/17 06:29
[2017-04-23] MEDS: Nystatin 100,000 Units/gm Topical Pow(15 gm) TOP SCH ×3 (01:00→17:15)
[2017-04-23 01:38] LABS: ACETONE 31 mg/dL; ETHANOL None Detected; METHANOL None Detected
[2017-04-23] MEDS: Piperacill/Tazo 2.25gm in Dex 2.25 GM/50 ML BAG IVPB SCH ×3 (06:30→21:21)
[2017-04-23 06:36] LABS: BASO % 0.2 % (0.0-2.0); EOS # 0.1 K/uL (0.0-0.7); EOS % 0.4 % (0.0-4.0); HEMATOCRIT 28.4 % (34.0-47.0); LYMPH # 1.1 K/uL (1.0-4.3); LYMPH % 5.8 % (20.0-40.0); MEAN CELL VOLUME 92.4 fL (81.0-99.0); MEAN CORPUSCULAR HEMOGLOBIN 30.2 pg (27.0-31.0); MEAN CORPUSCULAR HGB CONC 32.6 g/dL (33.0-37.0); MEAN PLATELET VOLUME 8.7 fL (7.2-11.7); MONO # 0.9 K/uL (0.0-0.8); MONO % 4.7 % (0.0-10.0); PLATELET COUNT 86 K/uL (130-400); RED CELL DISTRIBUTION WIDTH 17.4 % (11.5-14.5); WHITE BLOOD COUNT 19.1 K/uL (4.8-10.8)
[2017-04-23] MEDS: Thiamine 100 mg/ml Inj IV SCH ×3 (06:37→22:47)
[2017-04-23] MEDS: Collagenase 250 Units/gm Ointment(30 gm) TOP SCH ×2 (06:38→17:17)
[2017-04-23] MEDS: (Lantus) Insulin Glargine, Recombinant SC SCH ×2 (06:40→21:43)
[2017-04-23 07:01] LABS: ALB/GLOB RATIO 0.8 (1.0-2.1); ALKALINE PHOSPHATASE 189 U/L (38-126); ALT/SGPT 35 U/L (9-52); AST/SGOT 19 U/L (14-36); BILIRUBIN,TOTAL 0.4 mg/dL (0.2-1.3); BLOOD UREA NITROGEN 18 mg/dL (7-17); CALCIUM 6.5 mg/dl (8.6-10.4); CARBON DIOXIDE 26 mmol/L (22-30); CHLORIDE 94 mmol/L (98-107); GFR AFRICAN-AMERICAN > 60; GLUCOSE,RANDOM 223 mg/dL (65-105); MAGNESIUM 1.7 mg/dL (1.6-2.3); PHOSPHOROUS 2.7 mg/dL (2.5-4.5); POTASSIUM 3.9 mmol/L (3.6-5.2); SODIUM 127 mmol/L (132-148); TOTAL PROTEIN 4.5 g/dL (6.3-8.3)
[2017-04-23] MEDS: HYDROmorphone 0.5 mg/0.5 ml ISec IVP PRN ×3 (08:21→19:15)
[2017-04-23] MEDS: (Novolin R) Insulin Human Regular 100 units/ml vial SC SCH ×4 (08:24→22:32)
[2017-04-23] MEDS: Multivitamin Vitamin B Complex (Nephro-Vite) Tab PO SCH (08:27)
[2017-04-23 08:47] LABS: NEUTROPHIL 93 % (50-75); TOTAL CELLS COUNTED 100
[2017-04-23] MEDS ORDERED: Albumin Human 25% (12.5 gm/50 ml) IV ONE ×2 (09:26→11:00)
[2017-04-23] MEDS: Brimonidine 0.2% Opth Sol (5ml) OU SCH ×3 (09:40→17:15)
[2017-04-23] MEDS: Pantoprazole 40 mg Susp UD PO SCH (09:43)
[2017-04-23] MEDS: Linezolid 600 mg in D5W 300 ml 600 MG/300 ML BAG IVPB SCH (11:55)
--- NOTE | 2017-04-23 13:09 | CP.PCM.PN ---
Subjective - Date & Time of Evaluation Date of Evaluation: 04/23/17 Time of Evaluation: 07:50 - Subjective Subjective: Medicine note ( PGY-1)----> Dr. Myrick's service Patient was seen and examined at bedside. Patient is unchanged clinically. As per nursing, there were no acute events overnight. Unable to evaluate appropriate ROS as patient was not very verbal and uncooperative due to current mental status and condition. Objective - Vital Signs/Intake and Output Vital Signs (last 24 hours): Temp Pulse Resp BP Pulse Ox 98.7 F 92 H 18 150/70 99 04/23/17 08:00 04/23/17 10:00 04/23/17 08:00 04/23/17 09:41 04/23/17 08:00 Intake and Output: 04/23/17 04/23/17 06:59 18:59 Intake Total 800 Output Total 50 Balance 750 - Medications Medications: Current Medications Acetaminophen (Tylenol 325mg Tab) 650 mg PO Q6 PRN PRN Reason: Pain, moderate (4-7) Last Admin: 04/20/17 14:48 Dose: 650 mg Apixaban (Eliquis) 5 mg PO BID [facility] Apixaban (Eliquis) 10 mg PO BID [facility] Brimonidine Tartrate (Alphagan 0.2% Opht) 1 ml OU TID [facility] Last Admin: 04/23/17 09:40 Dose: 1 drop Collagenase (Santyl) 0 gm TOP Q12H [facility] Last Admin: 04/23/17 06:38 Dose: 1 applic Dextrose (Dextrose 50%) 0 ml IV STAT PRN; Protocol PRN Reason: Hypoglycemia Protocol Last Admin: 04/22/17 16:25 Dose: 50 ml Epoetin Maxwell (Procrit) 10,000 unit IV MWF [facility] Stop: 04/27/17 09:01 Last Admin: 04/22/17 12:57 Dose: 10,000 unit Ergocalciferol (Drisdol 50,000 Intl Units Cap) 1 cap PO Q7D [facility] Last Admin: 04/18/17 22:30 Dose: Not Given Furosemide (Lasix) 40 mg PO DAILY [facility] Last Admin: 04/23/17 09:41 Dose: 40 mg Glucagon (Glucagen Diagnostic Kit) 1 mg IM STAT PRN; Protocol PRN Reason: Hypoglycemia Protocol Hydralazine HCl (Apresoline) 25 mg PO BID [facility] Last Admin: 04/23/17 09:41 Dose: 25 mg Hydromorphone HCl (Dilaudid) 0.5 mg IVP Q6H PRN PRN Reason: Pain, severe (8-10) Last Admin: 04/23/17 08:21 Dose: 0.5 mg Dextrose/Sodium Chloride (Dextrose 5%/0.45% Ns 1000 Ml) 1,000 mls @ 60 mls/hr IV .[id number] [facility] Last Admin: 04/12/17 13:19 Dose: 60 mls/hr Piperacillin Sod/Tazobactam Sod (Zosyn 2.25 Gm Iv Premix) 2.25 gm in 50 mls @ 200 mls/hr IVPB Q8 [facility] Last Admin: 04/23/17 06:30 Dose: 200 mls/hr Linezolid (Zyvox 600mg/300ml D5w) 600 mg in 300 mls @ 200 mls/hr IVPB Q12H [facility] Last Admin: 04/23/17 11:55 Dose: 200 mls/hr Gentamicin Sulfate/Sodium Chloride (Gentamicin Iv 80 Mg Premix) 80 mg in 100 mls @ 100 mls/hr IVPB MWF [facility] Last Admin: 04/22/17 15:07 Dose: 100 mls/hr Insulin Glargine (Lantus) 15 unit SC [facility] Last Admin: 04/23/17 06:40 Dose: 10 u Insulin Human Regular (Novolin R) 0 unit SC ACHS [facility] PRN Reason: Protocol Last Admin: 04/23/17 11:56 Dose: 3 unit Latanoprost (Xalatan Opht) 0.02 ml OU HS [facility] Last Admin: 04/22/17 21:05 Dose: 0.02 ml Megestrol Acetate (Megace) 40 mg PO DAILY [facility] Last Admin: 04/22/17 09:22 Dose: 40 mg Nystatin (Nystop Topical Powder) 1 gm TOP Q8H [facility] Last Admin: 04/23/17 08:25 Dose: 1 gra Pantoprazole Sodium (Protonix Susp) 40 mg PO DAILY [facility] Last Admin: 04/23/17 09:43 Dose: 40 mg Rosuvastatin Calcium (Crestor) 10 mg PO HS [facility] Last Admin: 04/22/17 21:03 Dose: 10 mg Thiamine HCl (Vitamin B1 Inj) 100 mg IV Q8H [facility] Last Admin: 04/23/17 06:37 Dose: 100 mg Timolol Maleate (Timoptic 0.5% Ophth Soln) 1 drop OU BID [facility] Last Admin: 04/23/17 09:40 Dose: 1 drop Vitamin B Complex/Vit C/Folic Acid (Nephro-Alonzo) 1 tab PO 0800 [facility] Last Admin: 04/23/17 08:27 Dose: 1 tab - Labs Labs: 04/23/17 06:26 04/23/17 06:26 PT 11.7 SECONDS (9.7-12.2) 04/11/17 18:55 INR 1.0 04/11/17 18:55 APTT 31 SECONDS (21-34) 04/23/17 06:26 - Constitutional Appears: No Acute Distress - Head Exam Head Exam: ATRAUMATIC - Eye Exam Eye Exam: EOMI - ENT Exam ENT Exam: Mucous Membranes Dry - Respiratory Exam Respiratory Exam: NORMAL BREATHING PATTERN Additional comments: Examination limited due to patient's condition Lungs are clear anteriorly and b/l posterior upper lobes - Cardiovascular Exam Cardiovascular Exam: REGULAR RHYTHM, +S1, +S2 - Extremities Exam Additional comments: Left BKA Right +2 pitting edema - Neurological Exam Neurological Exam: Awake. absent: Oriented x3 - Psychiatric Exam Psychiatric exam: Agitated - Skin Skin Exam: Pallor Assessment and Plan (1) Sepsis Assessment & Plan: Infectious Disease, Dr. Wellington on board----> help appreciated Leukocytosis with no bandemia * Leukocytosis trending down On admission: WBC: 21.3, HR: 107 Sacral culture (04/11/17) : Gram negative kendy, proteus mirabilis Blood culture (04/11/17): Gram positive cocci, Staphyl aureus and coag-negative staph S/P Left BKA (04/11/17): Gram negative kendy, proteus mirabilis, klebsiella pneumonia and vancomycin resistance E.faecium Medications/management: * Gentamicin 80mg IVPB HD * Zosyn 2.25gm IVPB Q8H * Vancomycin 1gm IVPB on HD---> Discontinued * Linezolid 600mg IVPB Q12H ---> Started on 04/14 * Status: Acute (2) Pulmonary embolism Assessment & Plan: Chest CT angio: Filling defects are noted at both upper lobes pulmonary arteries suggestive of pulmonary embolus. Large bilateral pleural effusion. Mild cardiomegaly. [id number] pericardial effusion. [id number] anasarca. Lower lobe atelectasis due to pleural effusion. 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 Broussard consulted * No surgical intervention at this time * Chinyere for sacral decub ID, Dr. Wellington consulted Lab: Gram Negative kendy, proteus mirabilis Medication: * Gentamicin 80mg IVPB HD * Zosyn 2.25gm IVPB Q8H * Linezolid 600mg IVPB Q12H (started 04/14/17) Status: Acute (6) S/P BKA (below knee amputation) Assessment & Plan: General Surgery, Dr. Broussard---> Help appreciated * Management as per recommendation * BKA (03/30/17) IDDr. Wellington----> Help appreciated Lab: Wound culture: Gram negative kendy; proteus mirabilis, klebsiella pneumonia and vancomycin resistance E.faecium Medications: * Gentamicin 80mg IVPB HD * Zosyn 2.25gm IVPB Q8H * Linezolid 600mg IVPB Q12H Status: Acute (7) Anemia, chronic disease Assessment & Plan: H/H Stable * transfused 2 units of PRBC on HD (04/15/17) * Continue to monitor Medication: * Procrit 10,000 unit IV TTS ( on HD) Status: Chronic (8) Glaucoma Assessment & Plan: Medications: * Timolol 0.5% OU BID * Latanoprost 0.02 ml OU HS * Brimonidine 1ml OU TID Status: Acute (9) DM2 (diabetes mellitus, type 2) Assessment & Plan: Management/Medication: * Accuchecks * ISS medium dose * Hypoglycemia protocol Status: Chronic (10) History of CHF (congestive heart failure) Assessment & Plan: Echo (03/09/17): EF=61%, please refer to the full report for complete impression Medication: * Lasix 40mg PO daily Status: Acute (11) Hypertension Assessment & Plan: Medication: * Norvasc 5mg PO daily (Held due to peripheral edema) * Hydralazine 25mg PO BID * Lisinopril 20mg PO daily Status: Chronic (12) History of hyperlipidemia Assessment & Plan: Crestor 10mg PO HS Status: Acute (13) Prophylactic measure Assessment & Plan: GI: Protonix 40mg PO daily DVT: Heparin 5,000 units SC Q12H Albumin 12.5 gm IV once PT and OT Disposition: Possible LTAC placement or higher level of subacute care All plans and management discussed with Dr. Myrick Status: Acute
--- NOTE | 2017-04-23 18:11 | CP.PCM.PN ---
Subjective - Date & Time of Evaluation Date of Evaluation: 04/23/17 Time of Evaluation: 07:00 - Subjective Subjective: more awake today c/o pain to LLE stump afebrile wbc trending down Objective - Vital Signs/Intake and Output Vital Signs (last 24 hours): Temp Pulse Resp BP Pulse Ox 98.5 F 98 H 20 160/55 H 98 04/23/17 12:00 04/23/17 16:00 04/23/17 16:00 04/23/17 16:00 04/23/17 16:00 Intake and Output: 04/23/17 04/23/17 06:59 18:59 Intake Total 800 Output Total 50 Balance 750 - Medications Medications: Current Medications Acetaminophen (Tylenol 325mg Tab) 650 mg PO Q6 PRN PRN Reason: Pain, moderate (4-7) Last Admin: 04/20/17 14:48 Dose: 650 mg Apixaban (Eliquis) 5 mg PO BID [facility] Apixaban (Eliquis) 10 mg PO BID [facility] Last Admin: 04/23/17 17:21 Dose: 10 mg Brimonidine Tartrate (Alphagan 0.2% Opht) 1 ml OU TID [facility] Last Admin: 04/23/17 17:15 Dose: 1 drop Collagenase (Santyl) 0 gm TOP Q12H [facility] Last Admin: 04/23/17 17:17 Dose: 1 applic Dextrose (Dextrose 50%) 0 ml IV STAT PRN; Protocol PRN Reason: Hypoglycemia Protocol Last Admin: 04/22/17 16:25 Dose: 50 ml Epoetin Maxwell (Procrit) 10,000 unit IV MWF [facility] Stop: 04/27/17 09:01 Last Admin: 04/22/17 12:57 Dose: 10,000 unit Ergocalciferol (Drisdol 50,000 Intl Units Cap) 1 cap PO Q7D [facility] Last Admin: 04/18/17 22:30 Dose: Not Given Furosemide (Lasix) 40 mg PO DAILY [facility] Last Admin: 04/23/17 09:41 Dose: 40 mg Glucagon (Glucagen Diagnostic Kit) 1 mg IM STAT PRN; Protocol PRN Reason: Hypoglycemia Protocol Hydralazine HCl (Apresoline) 25 mg PO BID [facility] Last Admin: 04/23/17 17:20 Dose: 25 mg Hydromorphone HCl (Dilaudid) 0.5 mg IVP Q6H PRN PRN Reason: Pain, severe (8-10) Last Admin: 04/23/17 14:08 Dose: 0.5 mg Dextrose/Sodium Chloride (Dextrose 5%/0.45% Ns 1000 Ml) 1,000 mls @ 60 mls/hr IV .[id number] [facility] Last Admin: 04/12/17 13:19 Dose: 60 mls/hr Piperacillin Sod/Tazobactam Sod (Zosyn 2.25 Gm Iv Premix) 2.25 gm in 50 mls @ 200 mls/hr IVPB Q8 [facility] Last Admin: 04/23/17 14:15 Dose: 200 mls/hr Linezolid (Zyvox 600mg/300ml D5w) 600 mg in 300 mls @ 200 mls/hr IVPB Q12H [facility] Last Admin: 04/23/17 11:55 Dose: 200 mls/hr Gentamicin Sulfate/Sodium Chloride (Gentamicin Iv 80 Mg Premix) 80 mg in 100 mls @ 100 mls/hr IVPB MWF [facility] Last Admin: 04/22/17 15:07 Dose: 100 mls/hr Insulin Glargine (Lantus) 15 unit SC [facility] Last Admin: 04/23/17 06:40 Dose: 10 u Insulin Human Regular (Novolin R) 0 unit SC ACHS [facility] PRN Reason: Protocol Last Admin: 04/23/17 17:16 Dose: 2 unit Latanoprost (Xalatan Opht) 0.02 ml OU HS [facility] Last Admin: 04/22/17 21:05 Dose: 0.02 ml Megestrol Acetate (Megace) 40 mg PO DAILY [facility] Last Admin: 04/23/17 10:13 Dose: 40 mg Nystatin (Nystop Topical Powder) 1 gm TOP Q8H [facility] Last Admin: 04/23/17 17:15 Dose: 1 gra Pantoprazole Sodium (Protonix Susp) 40 mg PO DAILY [facility] Last Admin: 04/23/17 09:43 Dose: 40 mg Rosuvastatin Calcium (Crestor) 10 mg PO HS [facility] Last Admin: 04/22/17 21:03 Dose: 10 mg Thiamine HCl (Vitamin B1 Inj) 100 mg IV Q8H [facility] Last Admin: 04/23/17 14:16 Dose: 100 mg Timolol Maleate (Timoptic 0.5% Ophth Soln) 1 drop OU BID [facility] Last Admin: 04/23/17 17:17 Dose: 1 drop Vitamin B Complex/Vit C/Folic Acid (Nephro-Alonzo) 1 tab PO 0800 [facility] Last Admin: 04/23/17 08:27 Dose: 1 tab - Labs Labs: 04/23/17 06:26 04/23/17 06:26 PT 11.7 SECONDS (9.7-12.2) 04/11/17 18:55 INR 1.0 04/11/17 18:55 APTT 31 SECONDS (21-34) 04/23/17 06:26 - Constitutional Appears: Non-toxic, Cachectic, Chronically Ill - Head Exam Head Exam: NORMOCEPHALIC - Eye Exam Eye Exam: PERRL - ENT Exam ENT Exam: Mucous Membranes Dry - Neck Exam Neck Exam: absent: Lymphadenopathy - Respiratory Exam Respiratory Exam: Decreased Breath Sounds - Cardiovascular Exam Cardiovascular Exam: REGULAR RHYTHM - GI/Abdominal Exam GI & Abdominal Exam: Distended, Soft - Rectal Exam Rectal Exam: Deferred - Exam Exam: NORMAL INSPECTION - Extremities Exam Extremities Exam: absent: Calf Tenderness - Back Exam Back Exam: absent: CVA tenderness (L), CVA tenderness (R) - Neurological Exam Neurological Exam: Alert, Awake Assessment and Plan (1) Elevated WBC count Status: Acute (2) S/P BKA (below knee amputation) Status: Acute (3) Sacral decubitus ulcer, stage III Status: Acute (4) Sepsis Status: Acute - Assessment and Plan (Free Text) Assessment: await surgical eval ? debridement / revision left leg ? Sacral culture (04/11/17) : Gram negative kendy, proteus mirabilis Blood culture (04/11/17): Gram positive cocci, Staphyl aureus and coag-negative staph S/P Left BKA (04/11/17): Gram negative kendy, proteus mirabilis, klebsiella pneumonia and vancomycin resistance E.faecium Medications/management: * Gentamicin 80mg IVPB HD * Zosyn 2.25gm IVPB Q8H * Linezolid 600mg IVPB Q12H ---> Started on 04/14
--- NOTE | 2017-04-23 18:54 | CP.PCM.PN ---
Subjective - Date & Time of Evaluation Date of Evaluation: 04/23/17 Time of Evaluation: 16:00 - Subjective Subjective: SEEN ON RENAL F/U IN ICU ON HD TIW ALL PREVIOUS EMR REVIEWED ON IVAB PER ID Objective - Vital Signs/Intake and Output Vital Signs (last 24 hours): Temp Pulse Resp BP Pulse Ox 98.5 F 105 H 20 160/55 H 98 04/23/17 12:00 04/23/17 18:00 04/23/17 16:00 04/23/17 16:00 04/23/17 16:00 Intake and Output: 04/23/17 04/23/17 06:59 18:59 Intake Total 800 Output Total 50 Balance 750 - Medications Medications: Current Medications Acetaminophen (Tylenol 325mg Tab) 650 mg PO Q6 PRN PRN Reason: Pain, moderate (4-7) Last Admin: 04/20/17 14:48 Dose: 650 mg Apixaban (Eliquis) 5 mg PO BID [facility] Apixaban (Eliquis) 10 mg PO BID [facility] Last Admin: 04/23/17 17:21 Dose: 10 mg Brimonidine Tartrate (Alphagan 0.2% Opht) 1 ml OU TID [facility] Last Admin: 04/23/17 17:15 Dose: 1 drop Collagenase (Santyl) 0 gm TOP Q12H [facility] Last Admin: 04/23/17 17:17 Dose: 1 applic Dextrose (Dextrose 50%) 0 ml IV STAT PRN; Protocol PRN Reason: Hypoglycemia Protocol Last Admin: 04/22/17 16:25 Dose: 50 ml Epoetin Maxwell (Procrit) 10,000 unit IV MWF [facility] Stop: 04/27/17 09:01 Last Admin: 04/22/17 12:57 Dose: 10,000 unit Ergocalciferol (Drisdol 50,000 Intl Units Cap) 1 cap PO Q7D [facility] Last Admin: 04/18/17 22:30 Dose: Not Given Furosemide (Lasix) 40 mg PO DAILY [facility] Last Admin: 04/23/17 09:41 Dose: 40 mg Glucagon (Glucagen Diagnostic Kit) 1 mg IM STAT PRN; Protocol PRN Reason: Hypoglycemia Protocol Hydralazine HCl (Apresoline) 25 mg PO BID [facility] Last Admin: 04/23/17 17:20 Dose: 25 mg Hydromorphone HCl (Dilaudid) 0.5 mg IVP Q6H PRN PRN Reason: Pain, severe (8-10) Last Admin: 04/23/17 14:08 Dose: 0.5 mg Dextrose/Sodium Chloride (Dextrose 5%/0.45% Ns 1000 Ml) 1,000 mls @ 60 mls/hr IV .[id number] [facility] Last Admin: 04/12/17 13:19 Dose: 60 mls/hr Piperacillin Sod/Tazobactam Sod (Zosyn 2.25 Gm Iv Premix) 2.25 gm in 50 mls @ 200 mls/hr IVPB Q8 [facility] Last Admin: 04/23/17 14:15 Dose: 200 mls/hr Linezolid (Zyvox 600mg/300ml D5w) 600 mg in 300 mls @ 200 mls/hr IVPB Q12H [facility] Last Admin: 04/23/17 11:55 Dose: 200 mls/hr Gentamicin Sulfate/Sodium Chloride (Gentamicin Iv 80 Mg Premix) 80 mg in 100 mls @ 100 mls/hr IVPB MWF [facility] Last Admin: 04/22/17 15:07 Dose: 100 mls/hr Insulin Glargine (Lantus) 15 unit SC [facility] Last Admin: 04/23/17 06:40 Dose: 10 u Insulin Human Regular (Novolin R) 0 unit SC ACHS [facility] PRN Reason: Protocol Last Admin: 04/23/17 17:16 Dose: 2 unit Latanoprost (Xalatan Opht) 0.02 ml OU HS [facility] Last Admin: 04/22/17 21:05 Dose: 0.02 ml Megestrol Acetate (Megace) 40 mg PO DAILY [facility] Last Admin: 04/23/17 10:13 Dose: 40 mg Nystatin (Nystop Topical Powder) 1 gm TOP Q8H [facility] Last Admin: 04/23/17 17:15 Dose: 1 gra Pantoprazole Sodium (Protonix Susp) 40 mg PO DAILY [facility] Last Admin: 04/23/17 09:43 Dose: 40 mg Rosuvastatin Calcium (Crestor) 10 mg PO HS [facility] Last Admin: 04/22/17 21:03 Dose: 10 mg Thiamine HCl (Vitamin B1 Inj) 100 mg IV Q8H [facility] Last Admin: 04/23/17 14:16 Dose: 100 mg Timolol Maleate (Timoptic 0.5% Ophth Soln) 1 drop OU BID [facility] Last Admin: 04/23/17 17:17 Dose: 1 drop Vitamin B Complex/Vit C/Folic Acid (Nephro-Alonzo) 1 tab PO 0800 [facility] Last Admin: 04/23/17 08:27 Dose: 1 tab - Labs Labs: 04/23/17 06:26 04/23/17 06:26 PT 11.7 SECONDS (9.7-12.2) 04/11/17 18:55 INR 1.0 04/11/17 18:55 APTT 31 SECONDS (21-34) 04/23/17 06:26 Assessment and Plan - Assessment and Plan (Free Text) Assessment: C/O SUPPORTIVE CARE C/O HD C/O CURRENT MEDS
[2017-04-23] MEDS: Latanoprost 2.5 ml Opht Soln OU SCH (21:23)
[2017-04-24] MEDS: Linezolid 600 mg in D5W 300 ml 600 MG/300 ML BAG IVPB SCH ×2 (00:12→12:34)
[2017-04-24] MEDS: Nystatin 100,000 Units/gm Topical Pow(15 gm) TOP SCH ×4 (00:31→17:00)
[2017-04-24] MEDS: HYDROmorphone 0.5 mg/0.5 ml ISec IVP PRN ×3 (02:14→19:52)
[2017-04-24] MEDS: Collagenase 250 Units/gm Ointment(30 gm) TOP SCH ×2 (05:48→18:50)
[2017-04-24] MEDS: Piperacill/Tazo 2.25gm in Dex 2.25 GM/50 ML BAG IVPB SCH ×3 (06:00→21:55)
[2017-04-24] MEDS: Thiamine 100 mg/ml Inj IV SCH ×3 (06:15→22:08)
[2017-04-24] MEDS: (Novolin R) Insulin Human Regular 100 units/ml vial SC SCH ×4 (07:50→21:47)
--- NOTE | 2017-04-24 08:12 | CP.PCM.PN ---
Subjective - Date & Time of Evaluation Date of Evaluation: 04/24/17 Time of Evaluation: 08:11 - Subjective Subjective: wound will need some bedside debridement there is pink tissue underneath Objective - Vital Signs/Intake and Output Vital Signs (last 24 hours): Temp Pulse Resp BP Pulse Ox 98.2 F 109 H 20 155/77 H 99 04/23/17 20:47 04/23/17 20:47 04/23/17 20:47 04/23/17 20:47 04/23/17 20:47 - Medications Medications: Current Medications Acetaminophen (Tylenol 325mg Tab) 650 mg PO Q6 PRN PRN Reason: Pain, moderate (4-7) Last Admin: 04/20/17 14:48 Dose: 650 mg Apixaban (Eliquis) 5 mg PO BID [facility] Apixaban (Eliquis) 10 mg PO BID [facility] Last Admin: 04/23/17 17:21 Dose: 10 mg Brimonidine Tartrate (Alphagan 0.2% Opht) 1 ml OU TID [facility] Last Admin: 04/23/17 17:15 Dose: 1 drop Collagenase (Santyl) 0 gm TOP Q12H [facility] Last Admin: 04/24/17 05:48 Dose: 1 applic Dextrose (Dextrose 50%) 0 ml IV STAT PRN; Protocol PRN Reason: Hypoglycemia Protocol Last Admin: 04/22/17 16:25 Dose: 50 ml Epoetin Maxwell (Procrit) 10,000 unit IV MWF [facility] Stop: 04/27/17 09:01 Last Admin: 04/22/17 12:57 Dose: 10,000 unit Ergocalciferol (Drisdol 50,000 Intl Units Cap) 1 cap PO Q7D [facility] Last Admin: 04/18/17 22:30 Dose: Not Given Furosemide (Lasix) 40 mg PO DAILY [facility] Last Admin: 04/23/17 09:41 Dose: 40 mg Glucagon (Glucagen Diagnostic Kit) 1 mg IM STAT PRN; Protocol PRN Reason: Hypoglycemia Protocol Hydralazine HCl (Apresoline) 25 mg PO BID [facility] Last Admin: 04/23/17 17:20 Dose: 25 mg Hydromorphone HCl (Dilaudid) 0.5 mg IVP Q6H PRN PRN Reason: Pain, severe (8-10) Last Admin: 04/24/17 02:14 Dose: 0.5 mg Dextrose/Sodium Chloride (Dextrose 5%/0.45% Ns 1000 Ml) 1,000 mls @ 60 mls/hr IV .[id number] [facility] Last Admin: 04/12/17 13:19 Dose: 60 mls/hr Piperacillin Sod/Tazobactam Sod (Zosyn 2.25 Gm Iv Premix) 2.25 gm in 50 mls @ 200 mls/hr IVPB Q8 [facility] Last Admin: 04/23/17 21:21 Dose: 200 mls/hr Linezolid (Zyvox 600mg/300ml D5w) 600 mg in 300 mls @ 200 mls/hr IVPB Q12H [facility] Last Admin: 04/24/17 00:12 Dose: 200 mls/hr Gentamicin Sulfate/Sodium Chloride (Gentamicin Iv 80 Mg Premix) 80 mg in 100 mls @ 100 mls/hr IVPB MWF [facility] Last Admin: 04/22/17 15:07 Dose: 100 mls/hr Insulin Glargine (Lantus) 15 unit SC [facility] Last Admin: 04/23/17 21:43 Dose: Not Given Insulin Human Regular (Novolin R) 0 unit SC [facility] PRN Reason: Protocol Last Admin: 04/23/17 22:32 Dose: Not Given Latanoprost (Xalatan Opht) 0.02 ml OU HS [facility] Last Admin: 04/23/17 21:23 Dose: 0.02 ml Megestrol Acetate (Megace) 40 mg PO DAILY [facility] Last Admin: 04/23/17 10:13 Dose: 40 mg Nystatin (Nystop Topical Powder) 1 gm TOP Q8H [facility] Last Admin: 04/24/17 00:31 Dose: 1 gra Pantoprazole Sodium (Protonix Susp) 40 mg PO DAILY [facility] Last Admin: 04/23/17 09:43 Dose: 40 mg Rosuvastatin Calcium (Crestor) 10 mg PO HS [facility] Last Admin: 04/23/17 21:22 Dose: 10 mg Thiamine HCl (Vitamin B1 Inj) 100 mg IV Q8H [facility] Last Admin: 04/24/17 06:15 Dose: 100 mg Timolol Maleate (Timoptic 0.5% Oph Soln) 1 drop OU BID [facility] Last Admin: 04/23/17 17:17 Dose: 1 drop Vitamin B Complex/Vit C/Folic Acid (Nephro-Alonzo) 1 tab PO 0800 [facility] Last Admin: 04/23/17 08:27 Dose: 1 tab - Labs Labs: 04/23/17 06:26 04/23/17 06:26 PT 11.7 SECONDS (9.7-12.2) 04/11/17 18:55 INR 1.0 04/11/17 18:55 APTT 31 SECONDS (21-34) 04/23/17 06:26
[2017-04-24] MEDS: Multivitamin Vitamin B Complex (Nephro-Vite) Tab PO SCH (08:50)
[2017-04-24] MEDS: Epoetin Alfa 10,000 unit/ml Dialysis IV SCH ×2 (09:31→15:26)
[2017-04-24] MEDS: Gentamicin 80 mg in 0.9% NS 80 MG/100 ML BAG IVPB SCH (10:00)
[2017-04-24] MEDS: Pantoprazole 40 mg Susp UD PO SCH (10:53)
[2017-04-24] MEDS: Brimonidine 0.2% Opth Sol (5ml) OU SCH ×3 (10:55→18:50)
[2017-04-24 15:06] LABS: BASO % 0.2 % (0.0-2.0); EOS # 0.1 K/uL (0.0-0.7); EOS % 0.7 % (0.0-4.0); HEMATOCRIT 27.8 % (34.0-47.0); LYMPH % 6.9 % (20.0-40.0); MEAN CELL VOLUME 92.7 fL (81.0-99.0); MEAN CORPUSCULAR HEMOGLOBIN 29.5 pg (27.0-31.0); MEAN CORPUSCULAR HGB CONC 31.8 g/dL (33.0-37.0); MONO # 0.6 K/uL (0.0-0.8); MONO % 4.2 % (0.0-10.0); RED CELL DISTRIBUTION WIDTH 17.6 % (11.5-14.5); WHITE BLOOD COUNT 14.8 K/uL (4.8-10.8)
[2017-04-24 15:21] LABS: ALB/GLOB RATIO 1.1 (1.0-2.1); BILIRUBIN,TOTAL 0.5 mg/dL (0.2-1.3); CALCIUM 6.7 mg/dl (8.6-10.4); MAGNESIUM 1.6 mg/dL (1.6-2.3); POTASSIUM 3.7 mmol/L (3.6-5.2); TOTAL PROTEIN 4.1 g/dL (6.3-8.3)
[2017-04-24 15:25] LABS: PLATELET COUNT 124 K/uL (130-400)
[2017-04-24 15:52] LABS: NEUTROPHIL 86 % (50-75); TOTAL CELLS COUNTED 100
--- NOTE | 2017-04-24 16:18 | CP.PCM.PN ---
Subjective - Date & Time of Evaluation Date of Evaluation: 04/24/17 Time of Evaluation: 09:00 - Subjective Subjective: more alert sepsis resolving discussed with Dr Ambrose IV rx reordered for debridement Objective - Vital Signs/Intake and Output Vital Signs (last 24 hours): Temp Pulse Resp BP Pulse Ox 98.9 F 103 H 20 160/71 H 99 04/24/17 14:35 04/24/17 14:35 04/24/17 14:35 04/24/17 15:20 04/24/17 14:35 - Medications Medications: Current Medications Acetaminophen (Tylenol 325mg Tab) 650 mg PO Q6 PRN PRN Reason: Pain, moderate (4-7) Last Admin: 04/20/17 14:48 Dose: 650 mg Apixaban (Eliquis) 5 mg PO BID [facility] Apixaban (Eliquis) 10 mg PO BID [facility] Last Admin: 04/24/17 10:52 Dose: 10 mg Brimonidine Tartrate (Alphagan 0.2% Opht) 1 ml OU TID [facility] Last Admin: 04/24/17 10:55 Dose: 1 drop Collagenase (Santyl) 0 gm TOP Q12H [facility] Last Admin: 04/24/17 05:48 Dose: 1 applic Dextrose (Dextrose 50%) 0 ml IV STAT PRN; Protocol PRN Reason: Hypoglycemia Protocol Last Admin: 04/22/17 16:25 Dose: 50 ml Epoetin Maxwell (Procrit) 10,000 unit IV MWF [facility] Stop: 04/27/17 09:01 Last Admin: 04/24/17 15:26 Dose: 10,000 unit Ergocalciferol (Drisdol 50,000 Intl Units Cap) 1 cap PO Q7D [facility] Last Admin: 04/18/17 22:30 Dose: Not Given Furosemide (Lasix) 40 mg PO DAILY [facility] Last Admin: 04/24/17 10:55 Dose: 40 mg Glucagon (Glucagen Diagnostic Kit) 1 mg IM STAT PRN; Protocol PRN Reason: Hypoglycemia Protocol Hydralazine HCl (Apresoline) 25 mg PO BID [facility] Last Admin: 04/24/17 10:52 Dose: 25 mg Hydromorphone HCl (Dilaudid) 0.5 mg IVP Q6H PRN PRN Reason: Pain, severe (8-10) Last Admin: 04/24/17 12:01 Dose: 0.5 mg Dextrose/Sodium Chloride (Dextrose 5%/0.45% Ns 1000 Ml) 1,000 mls @ 60 mls/hr IV .[id number] [facility] Last Admin: 04/12/17 13:19 Dose: 60 mls/hr Piperacillin Sod/Tazobactam Sod (Zosyn 2.25 Gm Iv Premix) 2.25 gm in 50 mls @ 200 mls/hr IVPB Q8 [facility] Last Admin: 04/23/17 21:21 Dose: 200 mls/hr Linezolid (Zyvox 600mg/300ml D5w) 600 mg in 300 mls @ 200 mls/hr IVPB Q12H [facility] Last Admin: 04/24/17 00:12 Dose: 200 mls/hr Gentamicin Sulfate/Sodium Chloride (Gentamicin Iv 80 Mg Premix) 80 mg in 100 mls @ 100 mls/hr IVPB MWF [facility] Last Admin: 04/24/17 10:00 Dose: 100 mls/hr Insulin Glargine (Lantus) 15 unit SC [facility] Last Admin: 04/23/17 21:43 Dose: Not Given Insulin Human Regular (Novolin R) 0 unit SC [facility] PRN Reason: Protocol Last Admin: 04/24/17 12:03 Dose: 3 unit Latanoprost (Xalatan Opht) 0.02 ml OU HS [facility] Last Admin: 04/23/17 21:23 Dose: 0.02 ml Megestrol Acetate (Megace) 40 mg PO DAILY [facility] Last Admin: 04/24/17 10:55 Dose: 40 mg Nystatin (Nystop Topical Powder) 1 gm TOP Q8H [facility] Last Admin: 04/24/17 08:57 Dose: 1 gra Pantoprazole Sodium (Protonix Susp) 40 mg PO DAILY [facility] Last Admin: 04/24/17 10:53 Dose: 40 mg Rosuvastatin Calcium (Crestor) 10 mg PO HS [facility] Last Admin: 04/23/17 21:22 Dose: 10 mg Thiamine HCl (Vitamin B1 Inj) 100 mg IV Q8H [facility] Last Admin: 04/24/17 06:15 Dose: 100 mg Timolol Maleate (Timoptic 0.5% Ophth Soln) 1 drop OU BID [facility] Last Admin: 04/24/17 10:54 Dose: 1 drop Vitamin B Complex/Vit C/Folic Acid (Nephro-Alonzo) 1 tab PO 0800 [facility] Last Admin: 04/24/17 08:50 Dose: 1 tab - Labs Labs: 04/24/17 14:51 04/24/17 14:51 PT 11.7 SECONDS (9.7-12.2) 04/11/17 18:55 INR 1.0 04/11/17 18:55 APTT 31 SECONDS (21-34) 04/23/17 06:26 - Constitutional Appears: Non-toxic, Confused, Chronically Ill - Head Exam Head Exam: NORMOCEPHALIC - Eye Exam Eye Exam: PERRL - ENT Exam ENT Exam: Mucous Membranes Dry - Neck Exam Neck Exam: absent: Lymphadenopathy - Respiratory Exam Respiratory Exam: Decreased Breath Sounds - Cardiovascular Exam Cardiovascular Exam: REGULAR RHYTHM - GI/Abdominal Exam GI & Abdominal Exam: Distended, Soft Assessment and Plan (1) Elevated WBC count Status: Acute (2) S/P BKA (below knee amputation) Status: Acute (3) Sacral decubitus ulcer, stage III Status: Acute (4) Sepsis Status: Acute
--- NOTE | 2017-04-24 19:26 | CP.PCM.PN ---
Subjective - Date & Time of Evaluation Date of Evaluation: 04/24/17 Time of Evaluation: 08:00 - Subjective Subjective: Medicine note ( PGY-1)----> Dr. Myrick's service Patient was seen and examined at bedside. Patient is unchanged clinically. As per nursing, there were no acute events overnight. Unable to evaluate appropriate ROS as patient was not very verbal and uncooperative due to current mental status and condition. Objective - Vital Signs/Intake and Output Vital Signs (last 24 hours): Temp Pulse Resp BP Pulse Ox 98.5 F 107 H 18 99/47 L 99 04/24/17 17:35 04/24/17 17:35 04/24/17 17:35 04/24/17 17:35 04/24/17 17:35 Intake and Output: 04/24/17 04/25/17 18:59 06:59 Intake Total 550 Balance 550 - Medications Medications: Current Medications Acetaminophen (Tylenol 325mg Tab) 650 mg PO Q6 PRN PRN Reason: Pain, moderate (4-7) Last Admin: 04/20/17 14:48 Dose: 650 mg Apixaban (Eliquis) 5 mg PO BID ELINA Apixaban (Eliquis) 10 mg PO BID [facility] Last Admin: 04/24/17 10:52 Dose: 10 mg Brimonidine Tartrate (Alphagan 0.2% Opht) 1 ml OU TID [facility] Last Admin: 04/24/17 14:32 Dose: Not Given Collagenase (Santyl) 0 gm TOP Q12H [facility] Last Admin: 04/24/17 05:48 Dose: 1 applic Dextrose (Dextrose 50%) 0 ml IV STAT PRN; Protocol PRN Reason: Hypoglycemia Protocol Last Admin: 04/22/17 16:25 Dose: 50 ml Epoetin Maxwell (Procrit) 10,000 unit IV MWF [facility] Stop: 04/27/17 09:01 Last Admin: 04/24/17 15:26 Dose: 10,000 unit Ergocalciferol (Drisdol 50,000 Intl Units Cap) 1 cap PO Q7D [facility] Last Admin: 04/18/17 22:30 Dose: Not Given Furosemide (Lasix) 40 mg PO DAILY [facility] Last Admin: 04/24/17 10:55 Dose: 40 mg Glucagon (Glucagen Diagnostic Kit) 1 mg IM STAT PRN; Protocol PRN Reason: Hypoglycemia Protocol Hydralazine HCl (Apresoline) 25 mg PO BID [facility] Last Admin: 04/24/17 10:52 Dose: 25 mg Hydromorphone HCl (Dilaudid) 0.5 mg IVP Q6H PRN PRN Reason: Pain, severe (8-10) Last Admin: 04/24/17 12:01 Dose: 0.5 mg Dextrose/Sodium Chloride (Dextrose 5%/0.45% Ns 1000 Ml) 1,000 mls @ 60 mls/hr IV .[id number] [facility] Last Admin: 04/12/17 13:19 Dose: 60 mls/hr Piperacillin Sod/Tazobactam Sod (Zosyn 2.25 Gm Iv Premix) 2.25 gm in 50 mls @ 200 mls/hr IVPB Q8 [facility] Last Admin: 04/24/17 14:33 Dose: Not Given Linezolid (Zyvox 600mg/300ml D5w) 600 mg in 300 mls @ 200 mls/hr IVPB Q12H [facility] Last Admin: 04/24/17 12:34 Dose: 200 mls/hr Gentamicin Sulfate/Sodium Chloride (Gentamicin Iv 80 Mg Premix) 80 mg in 100 mls @ 100 mls/hr IVPB MWF [facility] Last Admin: 04/24/17 10:00 Dose: 100 mls/hr Insulin Glargine (Lantus) 15 unit SC [facility] Last Admin: 04/23/17 21:43 Dose: Not Given Insulin Human Regular (Novolin R) 0 unit SC ACHS [facility] PRN Reason: Protocol Last Admin: 04/24/17 12:03 Dose: 3 unit Latanoprost (Xalatan Opht) 0.02 ml OU HS [facility] Last Admin: 04/23/17 21:23 Dose: 0.02 ml Megestrol Acetate (Megace) 40 mg PO DAILY [facility] Last Admin: 04/24/17 10:55 Dose: 40 mg Nystatin (Nystop Topical Powder) 1 gm TOP Q8H [facility] Last Admin: 04/24/17 08:57 Dose: 1 gra Pantoprazole Sodium (Protonix Susp) 40 mg PO DAILY [facility] Last Admin: 04/24/17 10:53 Dose: 40 mg Rosuvastatin Calcium (Crestor) 10 mg PO [facility] Last Admin: 04/23/17 21:22 Dose: 10 mg Thiamine HCl (Vitamin B1 Inj) 100 mg IV Q8H [facility] Last Admin: 04/24/17 14:33 Dose: Not Given Timolol Maleate (Timoptic 0.5% Ophth Soln) 1 drop OU BID [facility] Last Admin: 04/24/17 10:54 Dose: 1 drop Vitamin B Complex/Vit C/Folic Acid (Nephro-Alonzo) 1 tab PO 0800 [facility] Last Admin: 04/24/17 08:50 Dose: 1 tab - Labs Labs: 04/24/17 14:51 04/24/17 14:51 PT 11.7 SECONDS (9.7-12.2) 04/11/17 18:55 INR 1.0 04/11/17 18:55 APTT 31 SECONDS (21-34) 04/23/17 06:26 - Constitutional Appears: No Acute Distress - Head Exam Head Exam: ATRAUMATIC - Eye Exam Eye Exam: EOMI - ENT Exam ENT Exam: Mucous Membranes Dry - Respiratory Exam Respiratory Exam: NORMAL BREATHING PATTERN Additional comments: Examination limited due to patient's condition Lungs are clear anteriorly and b/l posterior upper lobes - Cardiovascular Exam Cardiovascular Exam: REGULAR RHYTHM, +S1, +S2 - GI/Abdominal Exam GI & Abdominal Exam: Soft, Normal Bowel Sounds. absent: Tenderness - Extremities Exam Extremities Exam: absent: Pedal Edema Additional comments: Left BKA Right +2 pitting edema - Neurological Exam Neurological Exam: Alert - Psychiatric Exam Psychiatric exam: Anxious, Depressed - Skin Skin Exam: Pallor Assessment and Plan (1) Sepsis Assessment & Plan: Infectious Disease, Dr. Wellington on board----> help appreciated Leukocytosis with no bandemia * Leukocytosis trending down On admission: WBC: 21.3, HR: 107 Sacral culture (04/11/17) : Gram negative kendy, proteus mirabilis Blood culture (04/11/17): Gram positive cocci, Staphyl aureus and coag-negative staph S/P Left BKA (04/11/17): Gram negative kendy, proteus mirabilis, klebsiella pneumonia and vancomycin resistance E.faecium Medications/management: * Gentamicin 80mg IVPB HD * Zosyn 2.25gm IVPB Q8H * Vancomycin 1gm IVPB on HD---> Discontinued * Linezolid 600mg IVPB Q12H ---> Started on 04/14 Status: Acute (2) Pulmonary embolism Assessment & Plan: Chest CT angio: Filling defects are noted at both upper lobes pulmonary arteries suggestive of pulmonary embolus. Large bilateral pleural effusion. Mild cardiomegaly. [id number] pericardial effusion. [id number] anasarca. Lower lobe atelectasis due to pleural effusion. Medications: Discontinued Heparin drip Started on Eliquis 10mg PO [id number]; after 7 days decrease to 5mg PO daily * Will start eliquis 5mg PO daily (04/24/17) Status: Acute (3) Serum albumin decreased Assessment & Plan: Possibly secondary to decrease PO intake and appetite Medication/Management: * Encourage PO intake * Continue to monitor with am labs * Megace 40mg PO daily (Appetite stimulant) Status: Acute (4) End stage renal disease on dialysis Assessment & Plan: Extension Service Specialist In Charge, Dr. 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 Broussard consulted * No surgical intervention at this time * Santyl for sacral decub ID, Dr. Wellington consulted Lab: Gram Negative kendy, proteus mirabilis Medication: * Gentamicin 80mg IVPB HD * Zosyn 2.25gm IVPB Q8H * Linezolid 600mg IVPB Q12H (started 04/14/17) Status: Acute (6) S/P BKA (below knee amputation) Assessment & Plan: General Surgery, Dr. Broussard---> Help appreciated * Management as per recommendation * BKA (03/30/17) ID, Dr. Wellington----> Help appreciated Lab: Wound culture: Gram negative kendy; proteus mirabilis, klebsiella pneumonia and vancomycin resistance E.faecium Medications: * Gentamicin 80mg IVPB HD * Zosyn 2.25gm IVPB Q8H * Linezolid 600mg IVPB Q12H Status: Acute (7) Anemia, chronic disease Assessment & Plan: H/H Stable * transfused 2 units of PRBC on HD (04/15/17) * Continue to monitor Medication: * Procrit 10,000 unit IV TTS ( on HD) Status: Chronic (8) Glaucoma Assessment & Plan: Medications: * Timolol 0.5% OU BID * Latanoprost 0.02 ml OU HS * Brimonidine 1ml OU TID Status: Acute (9) DM2 (diabetes mellitus, type 2) Assessment & Plan: Management/Medication: * Accuchecks * ISS medium dose * Hypoglycemia protocol Status: Chronic (10) History of CHF (congestive heart failure) Assessment & Plan: Echo (03/09/17): EF=61%, please refer to the full report for complete impression Medication: * Lasix 40mg PO daily Status: Acute (11) Hypertension Assessment & Plan: Medication: * Norvasc 5mg PO daily (Held due to peripheral edema) * Hydralazine 25mg PO BID * Lisinopril 20mg PO daily Status: Chronic (12) History of hyperlipidemia Assessment & Plan: Crestor 10mg PO HS Status: Acute (13) Prophylactic measure Assessment & Plan: GI: Protonix 40mg PO daily DVT: Heparin 5,000 units SC Q12H PT and OT Disposition: Possible LTAC placement or higher level of subacute care All plans and management discussed with Dr. Myrick Status: Acute
[2017-04-24] MEDS: Latanoprost 2.5 ml Opht Soln OU SCH (21:50)
[2017-04-24] MEDS: (Lantus) Insulin Glargine, Recombinant SC SCH (21:53)
[2017-04-25] MEDS: Linezolid 600 mg in D5W 300 ml 600 MG/300 ML BAG IVPB SCH ×2 (00:13→11:24)
[2017-04-25] MEDS: Nystatin 100,000 Units/gm Topical Pow(15 gm) TOP SCH ×3 (00:18→18:05)
[2017-04-25] MEDS: HYDROmorphone 0.5 mg/0.5 ml ISec IVP PRN ×2 (02:39→09:58)
[2017-04-25] MEDS: Piperacill/Tazo 2.25gm in Dex 2.25 GM/50 ML BAG IVPB SCH ×3 (05:03→22:36)
[2017-04-25] MEDS: Collagenase 250 Units/gm Ointment(30 gm) TOP SCH ×2 (05:08→22:37)
[2017-04-25] MEDS: Thiamine 100 mg/ml Inj IV SCH ×3 (05:43→23:05)
[2017-04-25] MEDS: (Novolin R) Insulin Human Regular 100 units/ml vial SC SCH ×4 (08:11→23:05)
[2017-04-25] MEDS: Multivitamin Vitamin B Complex (Nephro-Vite) Tab PO SCH (08:11)
[2017-04-25] MEDS: Pantoprazole 40 mg Susp UD PO SCH (09:58)
[2017-04-25] MEDS: Brimonidine 0.2% Opth Sol (5ml) OU SCH ×3 (10:05→18:11)
--- NOTE | 2017-04-25 15:59 | CP.PCM.PN ---
Subjective - Date & Time of Evaluation Date of Evaluation: 04/25/17 Time of Evaluation: 09:45 - Subjective Subjective: Medicine note ( PGY-1)----> Dr. Myrick's service Patient was seen and examined at bedside. Patient is unchanged clinically. As per nursing, there were no acute events overnight. Unable to evaluate appropriate ROS as patient was not very verbal and uncooperative due to current mental status and condition. Patient's was present at bedside. Objective - Vital Signs/Intake and Output Vital Signs (last 24 hours): Temp Pulse Resp BP Pulse Ox 98.6 F 104 H 18 162/90 H 100 04/25/17 08:36 04/25/17 08:36 04/25/17 08:36 04/25/17 09:57 04/25/17 08:36 Intake and Output: 04/25/17 04/25/17 06:59 18:59 Intake Total 250 400 Balance 250 400 - Medications Medications: Current Medications Acetaminophen (Tylenol 325mg Tab) 650 mg PO Q6 PRN PRN Reason: Pain, moderate (4-7) Last Admin: 04/20/17 14:48 Dose: 650 mg Apixaban (Eliquis) 5 mg PO BID ELINA Apixaban (Eliquis) 10 mg PO BID [facility] Last Admin: 04/25/17 09:57 Dose: 10 mg Brimonidine Tartrate (Alphagan 0.2% Opht) 1 ml OU TID [facility] Last Admin: 04/25/17 13:22 Dose: 1 drop Collagenase (Santyl) 0 gm TOP Q12H [facility] Last Admin: 04/25/17 05:08 Dose: 1 applic Dextrose (Dextrose 50%) 0 ml IV STAT PRN; Protocol PRN Reason: Hypoglycemia Protocol Last Admin: 04/22/17 16:25 Dose: 50 ml Epoetin Maxwell (Procrit) 10,000 unit IV MWF [facility] Stop: 04/27/17 09:01 Last Admin: 04/24/17 15:26 Dose: 10,000 unit Ergocalciferol (Drisdol 50,000 Intl Units Cap) 1 cap PO Q7D [facility] Last Admin: 04/18/17 22:30 Dose: Not Given Furosemide (Lasix) 40 mg PO DAILY [facility] Last Admin: 04/25/17 09:57 Dose: 40 mg Glucagon (Glucagen Diagnostic Kit) 1 mg IM STAT PRN; Protocol PRN Reason: Hypoglycemia Protocol Hydralazine HCl (Apresoline) 25 mg PO BID [facility] Last Admin: 04/25/17 09:57 Dose: 25 mg Dextrose/Sodium Chloride (Dextrose 5%/0.45% Ns 1000 Ml) 1,000 mls @ 60 mls/hr IV .[id number] [facility] Last Admin: 04/12/17 13:19 Dose: 60 mls/hr Piperacillin Sod/Tazobactam Sod (Zosyn 2.25 Gm Iv Premix) 2.25 gm in 50 mls @ 200 mls/hr IVPB Q8 [facility] Last Admin: 04/25/17 13:21 Dose: 200 mls/hr Linezolid (Zyvox 600mg/300ml D5w) 600 mg in 300 mls @ 200 mls/hr IVPB Q12H [facility] Last Admin: 04/25/17 11:24 Dose: 200 mls/hr Gentamicin Sulfate/Sodium Chloride (Gentamicin Iv 80 Mg Premix) 80 mg in 100 mls @ 100 mls/hr IVPB MWF [facility] Last Admin: 04/24/17 10:00 Dose: 100 mls/hr Insulin Glargine (Lantus) 15 unit SC [facility] Last Admin: 04/24/17 21:53 Dose: 15 u Insulin Human Regular (Novolin R) 0 unit SC ACHS [facility] PRN Reason: Protocol Last Admin: 04/25/17 11:49 Dose: Not Given Latanoprost (Xalatan Opht) 0.02 ml OU HS [facility] Last Admin: 04/24/17 21:50 Dose: 0.02 ml Megestrol Acetate (Megace) 40 mg PO DAILY [facility] Last Admin: 04/25/17 09:57 Dose: 40 mg Nystatin (Nystop Topical Powder) 1 gm TOP Q8H [facility] Last Admin: 04/25/17 08:07 Dose: 1 gra Pantoprazole Sodium (Protonix Susp) 40 mg PO DAILY [facility] Last Admin: 04/25/17 09:58 Dose: 40 mg Rosuvastatin Calcium (Crestor) 10 mg PO HS [facility] Last Admin: 04/24/17 21:43 Dose: 10 mg Thiamine HCl (Vitamin B1 Inj) 100 mg IV Q8H [facility] Last Admin: 04/25/17 13:31 Dose: 100 mg Timolol Maleate (Timoptic 0.5% Ophth Soln) 1 drop OU BID [facility] Last Admin: 04/25/17 10:04 Dose: 1 drop Vitamin B Complex/Vit C/Folic Acid (Nephro-Alonzo) 1 tab PO 0800 [facility] Last Admin: 04/25/17 08:11 Dose: 1 tab - Labs Labs: 04/24/17 14:51 04/24/17 14:51 PT 11.7 SECONDS (9.7-12.2) 04/11/17 18:55 INR 1.0 04/11/17 18:55 APTT 31 SECONDS (21-34) 04/23/17 06:26 - Constitutional Appears: No Acute Distress - Eye Exam Eye Exam: EOMI - ENT Exam ENT Exam: Mucous Membranes Dry - Respiratory Exam Respiratory Exam: NORMAL BREATHING PATTERN Additional comments: Examination limited due to patient's condition Lungs are clear anteriorly and b/l posterior upper lobes - Cardiovascular Exam Cardiovascular Exam: REGULAR RHYTHM, +S1, +S2 - GI/Abdominal Exam GI & Abdominal Exam: Soft, Normal Bowel Sounds. absent: Guarding, Rigid, Tenderness - Extremities Exam Additional comments: Left BKA Right +2 pitting edema - Neurological Exam Neurological Exam: Awake. absent: Alert, Oriented x3 - Psychiatric Exam Psychiatric exam: Depressed, Flat Affect - Skin Skin Exam: Normal Color, Pallor Assessment and Plan (1) Sepsis Assessment & Plan: Infectious Disease, Dr. Wellington on board----> help appreciated Leukocytosis with no bandemia * Leukocytosis trending down, continue to monitor On admission: WBC: 21.3, HR: 107 Sacral culture (04/11/17) : Gram negative kendy, proteus mirabilis Blood culture (04/11/17): Gram positive cocci, Staphyl aureus and coag-negative staph S/P Left BKA (04/11/17): Gram negative kendy, proteus mirabilis, klebsiella pneumonia and vancomycin resistance E.faecium Medications/management: * Gentamicin 80mg IVPB HD * Zosyn 2.25gm IVPB Q8H * Vancomycin 1gm IVPB on HD---> Discontinued * Linezolid 600mg IVPB Q12H ---> Started on 04/14 Status: Acute (2) Pulmonary embolism Assessment & Plan: Chest CT angio: Filling defects are noted at both upper lobes pulmonary arteries suggestive of pulmonary embolus. Large bilateral pleural effusion. Mild cardiomegaly. [id number] pericardial effusion. [id number] anasarca. Lower lobe atelectasis due to pleural effusion. Medications: Discontinued Heparin drip Started on Eliquis 10mg PO [id number]; after 7 days decrease to 5mg PO daily * Will start eliquis 5mg PO daily (04/24/17) Status: Acute (3) Serum albumin decreased Assessment & Plan: Possibly secondary to decrease PO intake and appetite Medication/Management: * Encourage PO intake * Continue to monitor with am labs * Megace 40mg PO daily (Appetite stimulant) Status: Acute (4) End stage renal disease on dialysis Assessment & Plan: Entry Level Account Manager, Dr. 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 Broussard consulted * No surgical intervention at this time * Chinyere for sacral decub ID, Dr. Wellington consulted Wound care consult Lab: Gram Negative kendy, proteus mirabilis Medication: * Gentamicin 80mg IVPB HD * Zosyn 2.25gm IVPB Q8H * Linezolid 600mg IVPB Q12H (started 04/14/17) Status: Acute (6) S/P BKA (below knee amputation) Assessment & Plan: General Surgery, Dr. Broussard---> Help appreciated * Management as per recommendation * BKA (03/30/17) ID, Dr. Wellington----> Help appreciated Wound care consult Lab: Wound culture: Gram negative kendy; proteus mirabilis, klebsiella pneumonia and vancomycin resistance E.faecium Medications: * Gentamicin 80mg IVPB HD * Zosyn 2.25gm IVPB Q8H * Linezolid 600mg IVPB Q12H Status: Acute (7) Anemia, chronic disease Assessment & Plan: H/H Stable * transfused 2 units of PRBC on HD (04/15/17) * Continue to monitor Medication: * Procrit 10,000 unit IV TTS ( on HD) Status: Chronic (8) Glaucoma Assessment & Plan: Medications: * Timolol 0.5% OU BID * Latanoprost 0.02 ml OU HS * Brimonidine 1ml OU TID Status: Acute (9) DM2 (diabetes mellitus, type 2) Assessment & Plan: Management/Medication: * Accuchecks * ISS medium dose * Hypoglycemia protocol Status: Resolved (10) History of CHF (congestive heart failure) Assessment & Plan: Echo (03/09/17): EF=61%, please refer to the full report for complete impression Medication: * Lasix 40mg PO daily Status: Acute (11) Hypertension Assessment & Plan: Medication: * Norvasc 5mg PO daily (Held due to peripheral edema) * Hydralazine 25mg PO BID * Lisinopril 20mg PO daily Status: Chronic (12) History of hyperlipidemia Assessment & Plan: Crestor 10mg PO HS Status: Acute (13) Prophylactic measure Assessment & Plan: GI: Protonix 40mg PO daily DVT: Heparin 5,000 units SC Q12H PT and OT Disposition: Possible LTAC placement or higher level of subacute care All management and plan as per Dr. Myrick Status: Acute
[2017-04-25] MEDS: (Lantus) Insulin Glargine, Recombinant SC SCH (22:15)
[2017-04-25] MEDS: Ergocalciferol 50,000 Intl Units Cap PO SCH (22:47)
[2017-04-25] MEDS: Latanoprost 2.5 ml Opht Soln OU SCH (23:04)
--- NOTE | 2017-04-25 23:28 | CP.PCM.PN ---
Subjective - Date & Time of Evaluation Date of Evaluation: 04/25/17 Time of Evaluation: 14:00 - Subjective Subjective: SEEN ON RENAL F/U ON THE BED SIDE PT REMAINS LETHARGIC CAN ANSWER SIMPLE QEUSTIONS VERY SLOWLY EDEMA REMAINS ..ANASARCA ..EXPLAINED TO ABOUT FLIUD RESTRICTION PT RECIEVES HD TIW AND ON EVERY HD WE REMOVE APPROXIMATELY 3 KG ALL PREVIOUS EMR REVIEWD Objective - Vital Signs/Intake and Output Vital Signs (last 24 hours): Temp Pulse Resp BP Pulse Ox 98.6 F 99 H 18 162/90 H 100 04/25/17 08:36 04/25/17 15:00 04/25/17 08:36 04/25/17 09:57 04/25/17 08:36 Intake and Output: 04/25/17 04/26/17 18:59 06:59 Intake Total 400 Balance 400 - Medications Medications: Current Medications Acetaminophen (Tylenol 325mg Tab) 650 mg PO Q6 PRN PRN Reason: Pain, moderate (4-7) Last Admin: 04/20/17 14:48 Dose: 650 mg Apixaban (Eliquis) 5 mg PO BID [facility] Apixaban (Eliquis) 10 mg PO BID [facility] Last Admin: 04/25/17 18:11 Dose: 10 mg Brimonidine Tartrate (Alphagan 0.2% Opht) 1 ml OU TID [facility] Last Admin: 04/25/17 18:11 Dose: 1 drop Collagenase (Santyl) 0 gm TOP Q12H [facility] Last Admin: 04/25/17 22:37 Dose: Not Given Dextrose (Dextrose 50%) 0 ml IV STAT PRN; Protocol PRN Reason: Hypoglycemia Protocol Last Admin: 04/22/17 16:25 Dose: 50 ml Epoetin Maxwell (Procrit) 10,000 unit IV MWF [facility] Stop: 04/27/17 09:01 Last Admin: 04/24/17 15:26 Dose: 10,000 unit Ergocalciferol (Drisdol 50,000 Intl Units Cap) 1 cap PO Q7D [facility] Last Admin: 04/25/17 22:47 Dose: Not Given Furosemide (Lasix) 40 mg PO DAILY [facility] Last Admin: 04/25/17 09:57 Dose: 40 mg Glucagon (Glucagen Diagnostic Kit) 1 mg IM STAT PRN; Protocol PRN Reason: Hypoglycemia Protocol Hydralazine HCl (Apresoline) 25 mg PO BID [facility] Last Admin: 04/25/17 18:11 Dose: 25 mg Dextrose/Sodium Chloride (Dextrose 5%/0.45% Ns 1000 Ml) 1,000 mls @ 60 mls/hr IV .[id number] [facility] Last Admin: 04/12/17 13:19 Dose: 60 mls/hr Piperacillin Sod/Tazobactam Sod (Zosyn 2.25 Gm Iv Premix) 2.25 gm in 50 mls @ 200 mls/hr IVPB Q8 [facility] Last Admin: 04/25/17 22:36 Dose: 200 mls/hr Linezolid (Zyvox 600mg/300ml D5w) 600 mg in 300 mls @ 200 mls/hr IVPB Q12H [facility] Last Admin: 04/25/17 11:24 Dose: 200 mls/hr Gentamicin Sulfate/Sodium Chloride (Gentamicin Iv 80 Mg Premix) 80 mg in 100 mls @ 100 mls/hr IVPB MWF [facility] Last Admin: 04/24/17 10:00 Dose: 100 mls/hr Insulin Glargine (Lantus) 15 unit SC [facility] Last Admin: 04/25/17 22:15 Dose: Not Given Insulin Human Regular (Novolin R) 0 unit SC [facility] PRN Reason: Protocol Last Admin: 04/25/17 23:05 Dose: Not Given Latanoprost (Xalatan Opht) 0.02 ml OU [facility] Last Admin: 04/25/17 23:04 Dose: 0.02 ml Megestrol Acetate (Megace) 40 mg PO DAILY [facility] Last Admin: 04/25/17 09:57 Dose: 40 mg Nystatin (Nystop Topical Powder) 1 gm TOP Q8H [facility] Last Admin: 04/25/17 18:05 Dose: Not Given Pantoprazole Sodium (Protonix Susp) 40 mg PO DAILY [facility] Last Admin: 04/25/17 09:58 Dose: 40 mg Rosuvastatin Calcium (Crestor) 10 mg PO HS [facility] Last Admin: 04/25/17 22:36 Dose: 10 mg Thiamine HCl (Vitamin B1 Inj) 100 mg IV Q8H [facility] Last Admin: 04/25/17 23:05 Dose: Not Given Timolol Maleate (Timoptic 0.5% Ophth Soln) 1 drop OU BID [facility] Last Admin: 04/25/17 18:12 Dose: 1 drop Vitamin B Complex/Vit C/Folic Acid (Nephro-Alonzo) 1 tab PO 0800 [facility] Last Admin: 04/25/17 08:11 Dose: 1 tab - Labs Labs: 04/24/17 14:51 04/24/17 14:51 PT 11.7 SECONDS (9.7-12.2) 04/11/17 18:55 INR 1.0 04/11/17 18:55 APTT 31 SECONDS (21-34) 04/23/17 06:26 Assessment and Plan - Assessment and Plan (Free Text) Assessment: ESRD ON HD M W F ANEMIA OF CKD .. ON EPO AND VENOFER FAILURE TO THRIVE MMP .. C/O SUPPORTIVE CARE
[2017-04-26] MEDS: Linezolid 600 mg in D5W 300 ml 600 MG/300 ML BAG IVPB SCH ×2 (00:57→12:17)
[2017-04-26] MEDS: Nystatin 100,000 Units/gm Topical Pow(15 gm) TOP SCH ×3 (01:01→17:01)
[2017-04-26] MEDS: Piperacill/Tazo 2.25gm in Dex 2.25 GM/50 ML BAG IVPB SCH ×3 (05:17→23:00)
[2017-04-26] MEDS: Collagenase 250 Units/gm Ointment(30 gm) TOP SCH ×2 (05:18→17:49)
[2017-04-26] MEDS: Thiamine 100 mg/ml Inj IV SCH ×3 (05:31→22:59)
[2017-04-26] MEDS: (Novolin R) Insulin Human Regular 100 units/ml vial SC SCH ×4 (07:05→22:57)
[2017-04-26] MEDS: Multivitamin Vitamin B Complex (Nephro-Vite) Tab PO SCH (08:27)
[2017-04-26] MEDS: Pantoprazole 40 mg Susp UD PO SCH (10:32)
[2017-04-26] MEDS: Brimonidine 0.2% Opth Sol (5ml) OU SCH ×3 (10:34→18:02)
--- NOTE | 2017-04-26 10:55 | CP.PCM.PN ---
Subjective - Date & Time of Evaluation Date of Evaluation: 04/26/17 Time of Evaluation: 08:00 - Subjective Subjective: Medicine note ( PGY-1)----> Dr. Myrick's service Patient was seen and examined at bedside. Patient is unchanged clinically. As per nursing, there were no acute events overnight. Unable to evaluate appropriate ROS as patient was not very verbal and uncooperative due to current mental status and condition. Patient's was present at bedside. Objective - Vital Signs/Intake and Output Vital Signs (last 24 hours): Temp Pulse Resp BP Pulse Ox 97.7 F 93 H 20 140/82 100 04/26/17 09:08 04/26/17 09:08 04/26/17 09:08 04/26/17 10:33 04/26/17 09:08 Intake and Output: 04/26/17 04/26/17 06:59 18:59 Intake Total 400 Balance 400 - Medications Medications: Current Medications Acetaminophen (Tylenol 325mg Tab) 650 mg PO Q6 PRN PRN Reason: Pain, moderate (4-7) Last Admin: 04/26/17 10:36 Dose: 650 mg Apixaban (Eliquis) 5 mg PO BID [facility] Apixaban (Eliquis) 10 mg PO BID [facility] Last Admin: 04/26/17 10:32 Dose: 10 mg Brimonidine Tartrate (Alphagan 0.2% Opht) 1 ml OU TID [facility] Last Admin: 04/26/17 10:34 Dose: 1 drop Collagenase (Santyl) 0 gm TOP Q12H [facility] Last Admin: 04/26/17 05:18 Dose: 1 applic Dextrose (Dextrose 50%) 0 ml IV STAT PRN; Protocol PRN Reason: Hypoglycemia Protocol Last Admin: 04/22/17 16:25 Dose: 50 ml Epoetin Maxwell (Procrit) 10,000 unit IV MWF [facility] Stop: 04/27/17 09:01 Last Admin: 04/24/17 15:26 Dose: 10,000 unit Ergocalciferol (Drisdol 50,000 Intl Units Cap) 1 cap PO Q7D [facility] Last Admin: 04/25/17 22:47 Dose: Not Given Furosemide (Lasix) 40 mg PO DAILY [facility] Last Admin: 04/26/17 10:33 Dose: 40 mg Glucagon (Glucagen Diagnostic Kit) 1 mg IM STAT PRN; Protocol PRN Reason: Hypoglycemia Protocol Hydralazine HCl (Apresoline) 25 mg PO BID [facility] Last Admin: 04/26/17 10:33 Dose: 25 mg Dextrose/Sodium Chloride (Dextrose 5%/0.45% Ns 1000 Ml) 1,000 mls @ 60 mls/hr IV .[id number] [facility] Last Admin: 04/12/17 13:19 Dose: 60 mls/hr Piperacillin Sod/Tazobactam Sod (Zosyn 2.25 Gm Iv Premix) 2.25 gm in 50 mls @ 200 mls/hr IVPB Q8 [facility] Last Admin: 04/26/17 05:17 Dose: 200 mls/hr Linezolid (Zyvox 600mg/300ml D5w) 600 mg in 300 mls @ 200 mls/hr IVPB Q12H [facility] Last Admin: 04/26/17 00:57 Dose: 200 mls/hr Gentamicin Sulfate/Sodium Chloride (Gentamicin Iv 80 Mg Premix) 80 mg in 100 mls @ 100 mls/hr IVPB MWF [facility] Last Admin: 04/24/17 10:00 Dose: 100 mls/hr Insulin Glargine (Lantus) 15 unit SC [facility] Last Admin: 04/25/17 22:15 Dose: Not Given Insulin Human Regular (Novolin R) 0 unit SC ACHS [facility] PRN Reason: Protocol Last Admin: 04/26/17 07:05 Dose: Not Given Latanoprost (Xalatan Opht) 0.02 ml OU HS [facility] Last Admin: 04/25/17 23:04 Dose: 0.02 ml Megestrol Acetate (Megace) 40 mg PO DAILY [facility] Last Admin: 04/26/17 10:33 Dose: 40 mg Nystatin (Nystop Topical Powder) 1 gm TOP Q8H [facility] Last Admin: 04/26/17 08:27 Dose: 1 gra Pantoprazole Sodium (Protonix Susp) 40 mg PO DAILY [facility] Last Admin: 04/26/17 10:32 Dose: 40 mg Rosuvastatin Calcium (Crestor) 10 mg PO HS [facility] Last Admin: 04/25/17 22:36 Dose: 10 mg Thiamine HCl (Vitamin B1 Inj) 100 mg IV Q8H [facility] Last Admin: 04/26/17 05:31 Dose: 100 mg Timolol Maleate (Timoptic 0.5% Ophth Soln) 1 drop OU BID [facility] Last Admin: 04/26/17 10:33 Dose: 1 drop Vitamin B Complex/Vit C/Folic Acid (Nephro-Alonzo) 1 tab PO 0800 [facility] Last Admin: 04/26/17 08:27 Dose: Not Given - Labs Labs: 04/24/17 14:51 04/24/17 14:51 PT 11.7 SECONDS (9.7-12.2) 04/11/17 18:55 INR 1.0 04/11/17 18:55 APTT 31 SECONDS (21-34) 04/23/17 06:26 - Constitutional Appears: Well, No Acute Distress - Head Exam Head Exam: ATRAUMATIC - Eye Exam Eye Exam: EOMI - ENT Exam ENT Exam: Mucous Membranes Dry - Respiratory Exam Respiratory Exam: Clear to Ausculation Bilateral, NORMAL BREATHING PATTERN Additional comments: Examination limited due to patient's condition Lungs are clear anteriorly and b/l posterior upper lobe ON 2L NC - Cardiovascular Exam Cardiovascular Exam: REGULAR RHYTHM, +S1 - GI/Abdominal Exam GI & Abdominal Exam: Soft, Normal Bowel Sounds - Extremities Exam Additional comments: Left BKA, Dressing changed with island dressing and cleaned, clean, dry and intact Right +2 pitting edema - Neurological Exam Neurological Exam: Awake. absent: Oriented x3 - Psychiatric Exam Psychiatric exam: Depressed - Skin Skin Exam: Pallor Assessment and Plan (1) Sepsis Assessment & Plan: Infectious Disease, Dr. Wellington on board----> help appreciated Leukocytosis with no bandemia * Leukocytosis trending down, continue to monitor with am CBC On admission: WBC: 21.3, HR: 107 Sacral culture (04/11/17) : Gram negative kendy, proteus mirabilis Blood culture (04/11/17): Gram positive cocci, Staphyl aureus and coag-negative staph S/P Left BKA (04/11/17): Gram negative kendy, proteus mirabilis, klebsiella pneumonia and vancomycin resistance E.faecium Medications/management: * Gentamicin 80mg IVPB HD * Zosyn 2.25gm IVPB Q8H * Vancomycin 1gm IVPB on HD---> Discontinued * Linezolid 600mg IVPB Q12H ---> Started on 04/14 Status: Acute (2) Pulmonary embolism Assessment & Plan: hest CT angio: Filling defects are noted at both upper lobes pulmonary arteries suggestive of pulmonary embolus. Large bilateral pleural effusion. Mild cardiomegaly. [id number] pericardial effusion. [id number] anasarca. Lower lobe atelectasis due to pleural effusion. Medications: Discontinued Heparin drip Started on Eliquis 10mg PO [id number]; after 7 days decrease to 5mg PO daily * Will start eliquis 5mg PO daily (04/30/17) Status: Acute (3) Serum albumin decreased Assessment & Plan: Possibly secondary to decrease PO intake and appetite Medication/Management: * Encourage PO intake * Continue to monitor with am labs * Megace 40mg PO daily (Appetite stimulant) Status: Acute (4) End stage renal disease on dialysis Assessment & Plan: Food Photographer, Dr. 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 Broussard consulted * No surgical intervention at this time * Santyl for sacral decub ID, Dr. Wellington consulted Wound care consult Lab: Gram Negative kendy, proteus mirabilis Medication: * Gentamicin 80mg IVPB HD * Zosyn 2.25gm IVPB Q8H * Linezolid 600mg IVPB Q12H (started 04/14/17) Status: Acute (6) S/P BKA (below knee amputation) Assessment & Plan: eneral Surgery, Dr. Broussard---> Help appreciated * Management as per recommendation * BKA (03/30/17) * Possible bedside debridement for BKA stump ID, Dr. Wellington----> Help appreciated Wound care consult Lab: Wound culture: Gram negative kendy; proteus mirabilis, klebsiella pneumonia and vancomycin resistance E.faecium Medications: * Gentamicin 80mg IVPB HD * Zosyn 2.25gm IVPB Q8H * Linezolid 600mg IVPB Q12H Status: Acute (7) Anemia, chronic disease Assessment & Plan: H/H Stable * transfused 2 units of PRBC on HD (04/15/17) * Continue to monitor Medication: * Procrit 10,000 unit IV TTS ( on HD) Status: Chronic (8) Glaucoma Assessment & Plan: Medications: * Timolol 0.5% OU BID * Latanoprost 0.02 ml OU HS * Brimonidine 1ml OU TID Status: Acute (9) Diabetes mellitus Assessment & Plan: HgbA1C (02/18/17): 8.7 Management/Medication: * Accuchecks * ISS medium dose * Hypoglycemia protocol Status: Acute (10) History of CHF (congestive heart failure) Assessment & Plan: Echo (03/09/17): EF=61%, please refer to the full report for complete impression Medication: * Lasix 40mg PO daily Status: Acute (11) Hypertension Assessment & Plan: Medication: * Norvasc 5mg PO daily (Held due to peripheral edema) * Hydralazine 25mg PO BID * Lisinopril 20mg PO daily Status: Chronic (12) History of hyperlipidemia Assessment & Plan: Crestor 10mg PO HS Status: Acute (13) Prophylactic measure Assessment & Plan: GI: Protonix 40mg PO daily DVT: Heparin 5,000 units SC Q12H PT and OT Disposition: Possible LTAC placement or higher level of subacute care All management and plan as per Dr. Myrick Status: Acute
--- NOTE | 2017-04-26 14:36 | CP.PCM.PN ---
Subjective - Date & Time of Evaluation Date of Evaluation: 04/26/17 Time of Evaluation: 09:00 - Subjective Subjective: no fever arousable / lethargic Objective - Vital Signs/Intake and Output Vital Signs (last 24 hours): Temp Pulse Resp BP Pulse Ox 97.7 F 93 H 20 140/82 100 04/26/17 09:08 04/26/17 09:08 04/26/17 09:08 04/26/17 10:33 04/26/17 09:08 Intake and Output: 04/26/17 04/26/17 06:59 18:59 Intake Total 400 Balance 400 - Medications Medications: Current Medications Acetaminophen (Tylenol 325mg Tab) 650 mg PO Q6 PRN PRN Reason: Pain, moderate (4-7) Last Admin: 04/26/17 10:36 Dose: 650 mg Apixaban (Eliquis) 5 mg PO BID [facility] Apixaban (Eliquis) 10 mg PO BID [facility] Last Admin: 04/26/17 10:32 Dose: 10 mg Brimonidine Tartrate (Alphagan 0.2% Opht) 1 ml OU TID [facility] Last Admin: 04/26/17 13:21 Dose: 1 drop Collagenase (Santyl) 0 gm TOP Q12H [facility] Last Admin: 04/26/17 05:18 Dose: 1 applic Dextrose (Dextrose 50%) 0 ml IV STAT PRN; Protocol PRN Reason: Hypoglycemia Protocol Last Admin: 04/22/17 16:25 Dose: 50 ml Epoetin Maxwell (Procrit) 10,000 unit IV MWF [facility] Stop: 04/27/17 09:01 Last Admin: 04/24/17 15:26 Dose: 10,000 unit Ergocalciferol (Drisdol 50,000 Intl Units Cap) 1 cap PO Q7D [facility] Last Admin: 04/25/17 22:47 Dose: Not Given Furosemide (Lasix) 40 mg PO DAILY [facility] Last Admin: 04/26/17 10:33 Dose: 40 mg Glucagon (Glucagen Diagnostic Kit) 1 mg IM STAT PRN; Protocol PRN Reason: Hypoglycemia Protocol Hydralazine HCl (Apresoline) 25 mg PO BID [facility] Last Admin: 04/26/17 10:33 Dose: 25 mg Hydromorphone HCl (Dilaudid) 0.5 mg IVP Q6H PRN PRN Reason: Pain, severe (8-10) Dextrose/Sodium Chloride (Dextrose 5%/0.45% Ns 1000 Ml) 1,000 mls @ 60 mls/hr IV .[id number] [facility] Last Admin: 04/12/17 13:19 Dose: 60 mls/hr Piperacillin Sod/Tazobactam Sod (Zosyn 2.25 Gm Iv Premix) 2.25 gm in 50 mls @ 200 mls/hr IVPB Q8 [facility] Last Admin: 04/26/17 13:20 Dose: 200 mls/hr Linezolid (Zyvox 600mg/300ml D5w) 600 mg in 300 mls @ 200 mls/hr IVPB Q12H [facility] Last Admin: 04/26/17 12:17 Dose: 200 mls/hr Gentamicin Sulfate/Sodium Chloride (Gentamicin Iv 80 Mg Premix) 80 mg in 100 mls @ 100 mls/hr IVPB MWF [facility] Last Admin: 04/24/17 10:00 Dose: 100 mls/hr Insulin Glargine (Lantus) 15 unit SC [facility] Last Admin: 04/25/17 22:15 Dose: Not Given Insulin Human Regular (Novolin R) 0 unit SC [facility] PRN Reason: Protocol Last Admin: 04/26/17 12:18 Dose: 2 unit Latanoprost (Xalatan Opht) 0.02 ml OU HS [facility] Last Admin: 04/25/17 23:04 Dose: 0.02 ml Megestrol Acetate (Megace) 40 mg PO DAILY [facility] Last Admin: 04/26/17 10:33 Dose: 40 mg Nystatin (Nystop Topical Powder) 1 gm TOP Q8H [facility] Last Admin: 04/26/17 08:27 Dose: 1 gra Pantoprazole Sodium (Protonix Susp) 40 mg PO DAILY [facility] Last Admin: 04/26/17 10:32 Dose: 40 mg Rosuvastatin Calcium (Crestor) 10 mg PO HS [facility] Last Admin: 04/25/17 22:36 Dose: 10 mg Thiamine HCl (Vitamin B1 Inj) 100 mg IV Q8H [facility] Last Admin: 04/26/17 13:51 Dose: 100 mg Timolol Maleate (Timoptic 0.5% Oph Soln) 1 drop OU BID [facility] Last Admin: 04/26/17 10:33 Dose: 1 drop Vitamin B Complex/Vit C/Folic Acid (Nephro-Alonzo) 1 tab PO 0800 [facility] Last Admin: 04/26/17 08:27 Dose: Not Given - Labs Labs: 04/24/17 14:51 04/24/17 14:51 PT 11.7 SECONDS (9.7-12.2) 04/11/17 18:55 INR 1.0 04/11/17 18:55 APTT 31 SECONDS (21-34) 04/23/17 06:26 - Constitutional Appears: Non-toxic, Chronically Ill - Head Exam Head Exam: NORMOCEPHALIC - Eye Exam Eye Exam: PERRL - ENT Exam ENT Exam: Mucous Membranes Dry - Neck Exam Neck Exam: absent: Lymphadenopathy - Respiratory Exam Respiratory Exam: Decreased Breath Sounds - Cardiovascular Exam Cardiovascular Exam: REGULAR RHYTHM - GI/Abdominal Exam GI & Abdominal Exam: Distended - Rectal Exam Rectal Exam: Deferred - Exam Exam: NORMAL INSPECTION - Extremities Exam Extremities Exam: absent: Pedal Edema - Back Exam Back Exam: absent: CVA tenderness (L), CVA tenderness (R) - Neurological Exam Neurological Exam: Altered Assessment and Plan (1) Elevated WBC count Status: Acute (2) S/P BKA (below knee amputation) Status: Acute (3) Sacral decubitus ulcer, stage III Status: Acute (4) Sepsis Status: Acute - Assessment and Plan (Free Text) Assessment: cont iv rx Dr Beaver follow up
[2017-04-26] MEDS: HYDROmorphone 0.5 mg/0.5 ml ISec IVP PRN (17:00)
[2017-04-26] MEDS: (Lantus) Insulin Glargine, Recombinant SC SCH (22:57)
[2017-04-26] MEDS: Latanoprost 2.5 ml Opht Soln OU SCH (23:00)
[2017-04-27] MEDS: Nystatin 100,000 Units/gm Topical Pow(15 gm) TOP SCH ×3 (00:32→17:37)
[2017-04-27] MEDS: Linezolid 600 mg in D5W 300 ml 600 MG/300 ML BAG IVPB SCH ×3 (00:32→15:28)
[2017-04-27] MEDS: Thiamine 100 mg/ml Inj IV SCH ×3 (05:49→21:41)
[2017-04-27] MEDS: Piperacill/Tazo 2.25gm in Dex 2.25 GM/50 ML BAG IVPB SCH ×3 (05:49→21:41)
[2017-04-27] MEDS: Collagenase 250 Units/gm Ointment(30 gm) TOP SCH ×2 (05:54→17:39)
[2017-04-27] MEDS: Multivitamin Vitamin B Complex (Nephro-Vite) Tab PO SCH (08:13)
[2017-04-27] MEDS: (Novolin R) Insulin Human Regular 100 units/ml vial SC SCH ×4 (08:14→21:34)
[2017-04-27] MEDS: Brimonidine 0.2% Opth Sol (5ml) OU SCH ×3 (09:46→17:38)
[2017-04-27] MEDS: Pantoprazole 40 mg Susp UD PO SCH (09:50)
[2017-04-27 10:52] LABS: BASO # 0.1 K/uL (0.0-0.2); BASO % 0.6 % (0.0-2.0); EOS % 0.3 % (0.0-4.0); HEMATOCRIT 29.3 % (34.0-47.0); LYMPH % 9.5 % (20.0-40.0); MEAN CORPUSCULAR HEMOGLOBIN 30.9 pg (27.0-31.0); MEAN CORPUSCULAR HGB CONC 32.1 g/dL (33.0-37.0); MEAN PLATELET VOLUME 8.1 fL (7.2-11.7); MONO # 0.4 K/uL (0.0-0.8); MONO % 4.1 % (0.0-10.0); NRBC % 0.4 % (0.0-2.0); PLATELET COUNT 158 K/uL (130-400); RED CELL DISTRIBUTION WIDTH 18.1 % (11.5-14.5); WHITE BLOOD COUNT 10.5 K/uL (4.8-10.8)
[2017-04-27 10:54] LABS: MEAN CELL VOLUME 96.4 fL (81.0-99.0)
[2017-04-27] MEDS ORDERED: Albumin Human 25% (12.5 gm/50 ml) IV ONE (11:03)
[2017-04-27 11:11] LABS: NEUTROPHIL 91 % (50-75); TOTAL CELLS COUNTED 100
[2017-04-27 12:14] LABS: ALB/GLOB RATIO 1.1 (1.0-2.1); BILIRUBIN,TOTAL 0.5 mg/dL (0.2-1.3); CALCIUM 6.8 mg/dl (8.6-10.4); MAGNESIUM 1.7 mg/dL (1.6-2.3); PHOSPHOROUS 3.4 mg/dL (2.5-4.5); POTASSIUM 4.1 mmol/L (3.6-5.2); TOTAL PROTEIN 4.1 g/dL (6.3-8.3)
--- NOTE | 2017-04-27 12:26 | CP.PCM.PN ---
Subjective - Date & Time of Evaluation Date of Evaluation: 04/27/17 Time of Evaluation: 07:10 - Subjective Subjective: Medicine Note (PGY-1)-----> Dr. Myrick's service Patient was seen and examined at bedside.Patient was seen and examined at bedside. Patient is unchanged clinically. As per nursing, there were no acute events overnight. Unable to evaluate appropriate ROS as patient was not very verbal and uncooperative due to current mental status and condition. Objective - Vital Signs/Intake and Output Vital Signs (last 24 hours): Temp Pulse Resp BP Pulse Ox 98.7 F 112 H 20 95/54 L 96 04/27/17 09:35 04/27/17 09:35 04/27/17 09:35 04/27/17 09:35 04/27/17 08:00 Intake and Output: 04/27/17 04/27/17 06:59 18:59 Intake Total 375 Balance 375 - Medications Medications: Current Medications Acetaminophen (Tylenol 325mg Tab) 650 mg PO Q6 PRN PRN Reason: Pain, moderate (4-7) Last Admin: 04/26/17 10:36 Dose: 650 mg Apixaban (Eliquis) 5 mg PO BID [facility] Apixaban (Eliquis) 10 mg PO BID [facility] Last Admin: 04/27/17 09:48 Dose: Not Given Brimonidine Tartrate (Alphagan 0.2% Opht) 1 ml OU TID [facility] Last Admin: 04/27/17 09:46 Dose: Not Given Collagenase (Santyl) 0 gm TOP Q12H [facility] Last Admin: 04/27/17 05:54 Dose: 1 applic Dextrose (Dextrose 50%) 0 ml IV STAT PRN; Protocol PRN Reason: Hypoglycemia Protocol Last Admin: 04/22/17 16:25 Dose: 50 ml Epoetin Maxwell (Procrit) 10,000 unit IV MWF [facility] Ergocalciferol (Drisdol 50,000 Intl Units Cap) 1 cap PO Q7D [facility] Last Admin: 04/25/17 22:47 Dose: Not Given Furosemide (Lasix) 40 mg PO DAILY [facility] Last Admin: 04/27/17 09:50 Dose: Not Given Glucagon (Glucagen Diagnostic Kit) 1 mg IM STAT PRN; Protocol PRN Reason: Hypoglycemia Protocol Hydralazine HCl (Apresoline) 25 mg PO BID [facility] Last Admin: 04/27/17 09:47 Dose: Not Given Hydromorphone HCl (Dilaudid) 0.5 mg IVP Q6H PRN PRN Reason: Pain, severe (8-10) Last Admin: 04/26/17 17:00 Dose: 0.5 mg Dextrose/Sodium Chloride (Dextrose 5%/0.45% Ns 1000 Ml) 1,000 mls @ 60 mls/hr IV .[id number] [facility] Last Admin: 04/12/17 13:19 Dose: 60 mls/hr Piperacillin Sod/Tazobactam Sod (Zosyn 2.25 Gm Iv Premix) 2.25 gm in 50 mls @ 200 mls/hr IVPB Q8 [facility] Last Admin: 04/27/17 05:49 Dose: 200 mls/hr Linezolid (Zyvox 600mg/300ml D5w) 600 mg in 300 mls @ 200 mls/hr IVPB Q12H [facility] Last Admin: 04/27/17 00:32 Dose: 200 mls/hr Gentamicin Sulfate/Sodium Chloride (Gentamicin Iv 80 Mg Premix) 80 mg in 100 mls @ 100 mls/hr IVPB MWF [facility] Last Admin: 04/24/17 10:00 Dose: 100 mls/hr Insulin Glargine (Lantus) 15 unit SC HS [facility] Last Admin: 04/26/17 22:57 Dose: Not Given Insulin Human Regular (Novolin R) 0 unit SC ACHS [facility] PRN Reason: Protocol Last Admin: 04/27/17 11:56 Dose: Not Given Latanoprost (Xalatan Opht) 0.02 ml OU HS [facility] Last Admin: 04/26/17 23:00 Dose: 0.02 ml Megestrol Acetate (Megace) 40 mg PO DAILY [facility] Last Admin: 04/27/17 09:50 Dose: Not Given Midodrine (Proamatine) 10 mg PO ONCE PRN PRN Reason: Diastolic blood pressure Last Admin: 04/27/17 11:35 Dose: 10 mg Nystatin (Nystop Topical Powder) 1 gm TOP Q8H [facility] Last Admin: 04/27/17 08:14 Dose: 1 gra Pantoprazole Sodium (Protonix Susp) 40 mg PO DAILY [facility] Last Admin: 04/27/17 09:50 Dose: Not Given Rosuvastatin Calcium (Crestor) 10 mg PO HS [facility] Last Admin: 04/26/17 22:57 Dose: 10 mg Thiamine HCl (Vitamin B1 Inj) 100 mg IV Q8H [facility] Last Admin: 04/27/17 05:49 Dose: 100 mg Timolol Maleate (Timoptic 0.5% Ophth Soln) 1 drop OU BID [facility] Last Admin: 04/27/17 09:51 Dose: Not Given Vitamin B Complex/Vit C/Folic Acid (Nephro-Alonzo) 1 tab PO 0800 [facility] Last Admin: 04/27/17 08:13 Dose: 1 tab - Labs Labs: 04/27/17 10:49 04/27/17 10:49 PT 11.7 SECONDS (9.7-12.2) 04/11/17 18:55 INR 1.0 04/11/17 18:55 APTT 31 SECONDS (21-34) 04/23/17 06:26 - Constitutional Appears: No Acute Distress - Head Exam Head Exam: ATRAUMATIC - Eye Exam Eye Exam: EOMI - ENT Exam ENT Exam: Mucous Membranes Dry - Respiratory Exam Respiratory Exam: NORMAL BREATHING PATTERN Additional comments: Examination limited due to patient's condition Lungs are clear anteriorly and b/l posterior upper lobe ON 2L NC - Cardiovascular Exam Cardiovascular Exam: REGULAR RHYTHM, +S1, +S2 - GI/Abdominal Exam GI & Abdominal Exam: Soft, Normal Bowel Sounds - Extremities Exam Additional comments: Left BKA, Dressing changed with island dressing, 4 x 4 and cleaned, clean, dry and intact Right +2 pitting edema - Neurological Exam Neurological Exam: Awake - Psychiatric Exam Psychiatric exam: Depressed, Flat Affect - Skin Skin Exam: Pallor Assessment and Plan (1) Sepsis Assessment & Plan: Infectious Disease, Dr. Wellington on board----> help appreciated Leukocytosis with no bandemia * Leukocytosis trending down, continue to monitor with am CBC On admission: WBC: 21.3, HR: 107 Sacral culture (04/11/17) : Gram negative kendy, proteus mirabilis Blood culture (04/11/17): Gram positive cocci, Staphyl aureus and coag-negative staph S/P Left BKA (04/11/17): Gram negative kendy, proteus mirabilis, klebsiella pneumonia and vancomycin resistance E.faecium Medications/management: * Gentamicin 80mg IVPB HD * Zosyn 2.25gm IVPB Q8H * Vancomycin 1gm IVPB on HD---> Discontinued * Linezolid 600mg IVPB Q12H ---> Started on 04/14 Status: Acute (2) Pulmonary embolism Assessment & Plan: Chest CT angio: Filling defects are noted at both upper lobes pulmonary arteries suggestive of pulmonary embolus. Large bilateral pleural effusion. Mild cardiomegaly. [id number] pericardial effusion. [id number] anasarca. Lower lobe atelectasis due to pleural effusion. Medications: Discontinued Heparin drip Started on Eliquis 10mg PO [id number]; after 7 days decrease to 5mg PO daily * Will start eliquis 5mg PO daily (04/30/17) Status: Acute (3) Serum albumin decreased Assessment & Plan: Possibly secondary to decrease PO intake and appetite Medication/Management: * Encourage PO intake * Supplemental drink: Glucerna TID * Continue to monitor with am labs * Megace 40mg PO daily (Appetite stimulant) Status: Acute (4) End stage renal disease on dialysis Assessment & Plan: Apparel Patternmaker, Dr. 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 Broussard consulted * No surgical intervention at this time * Nancieyl for sacral decub ID, Dr. Wellington consulted Wound care consult Lab: Gram Negative kendy, proteus mirabilis Medication: * Gentamicin 80mg IVPB HD * Zosyn 2.25gm IVPB Q8H * Linezolid 600mg IVPB Q12H (started 04/14/17) Status: Acute (6) S/P BKA (below knee amputation) Assessment & Plan: General Surgery, Dr. Broussard---> Help appreciated * Management as per recommendation * BKA (03/30/17) * Possible bedside debridement for BKA stump ID, Dr. Wellington----> Help appreciated Wound care consult Lab: Wound culture: Gram negative kendy; proteus mirabilis, klebsiella pneumonia and vancomycin resistance E.faecium Medications: * Gentamicin 80mg IVPB HD * Zosyn 2.25gm IVPB Q8H * Linezolid 600mg IVPB Q12H Status: Acute (7) Anemia, chronic disease Assessment & Plan: H/H Stable * transfused 2 units of PRBC on HD (04/15/17) * Continue to monitor Medication: * Procrit 10,000 unit IV TTS ( on HD) Status: Chronic (8) Glaucoma Assessment & Plan: Medications: * Timolol 0.5% OU BID * Latanoprost 0.02 ml OU HS * Brimonidine 1ml OU TID Status: Acute (9) Diabetes mellitus Assessment & Plan: HgbA1C (02/18/17): 8.7 Management/Medication: * Accuchecks * ISS medium dose * Hypoglycemia protocol Status: Acute (10) History of CHF (congestive heart failure) Assessment & Plan: Echo (03/09/17): EF=61%, please refer to the full report for complete impression Medication: * Lasix 40mg PO daily Status: Acute (11) Hypertension Assessment & Plan: Medication: * Norvasc 5mg PO daily (Held due to peripheral edema) * Hydralazine 25mg PO BID * Lisinopril 20mg PO daily Status: Chronic (12) History of hyperlipidemia Assessment & Plan: Crestor 10mg PO HS Status: Acute (13) Prophylactic measure Assessment & Plan: GI: Protonix 40mg PO daily DVT: Heparin 5,000 units SC Q12H PT and OT Disposition: Possible LTAC placement or higher level of subacute care All management and plan as per Dr. Myrick Status: Acute
[2017-04-27] MEDS: Epoetin Alfa 10,000 unit/ml Dialysis IV SCH ×3 (13:06→17:13)
[2017-04-27] MEDS: HYDROmorphone 0.5 mg/0.5 ml ISec IVP PRN (14:26)
[2017-04-27] MEDS: Gentamicin 80 mg in 0.9% NS 80 MG/100 ML BAG IVPB SCH (14:33)
--- NOTE | 2017-04-27 16:32 | CP.PCM.PN ---
Subjective - Date & Time of Evaluation Date of Evaluation: 04/27/17 Time of Evaluation: 15:00 - Subjective Subjective: SEEN ON RENAL F/U RECIEVED HS TODAY .. BP DROPPED .. WAS GIVEN ALBUMIN AND MIDODRIN ALL PREVIOUS EMR REVIEWED Objective - Vital Signs/Intake and Output Vital Signs (last 24 hours): Temp Pulse Resp BP Pulse Ox 98.7 F 99 H 20 102/41 L 96 04/27/17 09:35 04/27/17 13:25 04/27/17 13:25 04/27/17 13:25 04/27/17 08:00 Intake and Output: 04/27/17 04/27/17 06:59 18:59 Intake Total 375 350 Balance 375 350 - Medications Medications: Current Medications Acetaminophen (Tylenol 325mg Tab) 650 mg PO Q6 PRN PRN Reason: Pain, moderate (4-7) Last Admin: 04/26/17 10:36 Dose: 650 mg Apixaban (Eliquis) 5 mg PO BID [facility] Apixaban (Eliquis) 10 mg PO BID [facility] Last Admin: 04/27/17 09:48 Dose: Not Given Brimonidine Tartrate (Alphagan 0.2% Opht) 1 ml OU TID [facility] Last Admin: 04/27/17 14:32 Dose: 1 drop Collagenase (Santyl) 0 gm TOP Q12H [facility] Last Admin: 04/27/17 05:54 Dose: 1 applic Dextrose (Dextrose 50%) 0 ml IV STAT PRN; Protocol PRN Reason: Hypoglycemia Protocol Last Admin: 04/22/17 16:25 Dose: 50 ml Epoetin Maxwell (Procrit) 10,000 unit IV MWF [facility] Last Admin: 04/27/17 13:09 Dose: 10,000 unit Ergocalciferol (Drisdol 50,000 Intl Units Cap) 1 cap PO Q7D [facility] Last Admin: 04/25/17 22:47 Dose: Not Given Furosemide (Lasix) 40 mg PO DAILY [facility] Last Admin: 04/27/17 09:50 Dose: Not Given Glucagon (Glucagen Diagnostic Kit) 1 mg IM STAT PRN; Protocol PRN Reason: Hypoglycemia Protocol Hydralazine HCl (Apresoline) 25 mg PO BID [facility] Last Admin: 04/27/17 09:47 Dose: Not Given Hydromorphone HCl (Dilaudid) 0.5 mg IVP Q6H PRN PRN Reason: Pain, severe (8-10) Last Admin: 04/27/17 14:26 Dose: 0.5 mg Dextrose/Sodium Chloride (Dextrose 5%/0.45% Ns 1000 Ml) 1,000 mls @ 60 mls/hr IV .[id number] [facility] Last Admin: 04/12/17 13:19 Dose: 60 mls/hr Piperacillin Sod/Tazobactam Sod (Zosyn 2.25 Gm Iv Premix) 2.25 gm in 50 mls @ 200 mls/hr IVPB Q8 [facility] Last Admin: 04/27/17 14:30 Dose: 200 mls/hr Linezolid (Zyvox 600mg/300ml D5w) 600 mg in 300 mls @ 200 mls/hr IVPB Q12H [facility] Last Admin: 04/27/17 15:28 Dose: 200 mls/hr Gentamicin Sulfate/Sodium Chloride (Gentamicin Iv 80 Mg Premix) 80 mg in 100 mls @ 100 mls/hr IVPB MWF [facility] Last Admin: 04/27/17 14:33 Dose: 100 mls/hr Insulin Glargine (Lantus) 15 unit SC [facility] Last Admin: 04/26/17 22:57 Dose: Not Given Insulin Human Regular (Novolin R) 0 unit SC [facility] PRN Reason: Protocol Last Admin: 04/27/17 11:56 Dose: Not Given Latanoprost (Xalatan Opht) 0.02 ml OU [facility] Last Admin: 04/26/17 23:00 Dose: 0.02 ml Megestrol Acetate (Megace) 40 mg PO DAILY [facility] Last Admin: 04/27/17 09:50 Dose: Not Given Midodrine (Proamatine) 10 mg PO ONCE PRN PRN Reason: Diastolic blood pressure Last Admin: 04/27/17 11:35 Dose: 10 mg Nystatin (Nystop Topical Powder) 1 gm TOP Q8H [facility] Last Admin: 04/27/17 08:14 Dose: 1 gra Pantoprazole Sodium (Protonix Susp) 40 mg PO DAILY [facility] Last Admin: 04/27/17 09:50 Dose: Not Given Rosuvastatin Calcium (Crestor) 10 mg PO [facility] Last Admin: 04/26/17 22:57 Dose: 10 mg Thiamine HCl (Vitamin B1 Inj) 100 mg IV Q8H [facility] Last Admin: 04/27/17 14:29 Dose: 100 mg Timolol Maleate (Timoptic 0.5% Oph Soln) 1 drop OU BID [facility] Last Admin: 04/27/17 09:51 Dose: Not Given Vitamin B Complex/Vit C/Folic Acid (Nephro-Alonzo) 1 tab PO 0800 [facility] Last Admin: 04/27/17 08:13 Dose: 1 tab - Labs Labs: 04/27/17 10:49 04/27/17 10:49 PT 11.7 SECONDS (9.7-12.2) 04/11/17 18:55 INR 1.0 04/11/17 18:55 APTT 31 SECONDS (21-34) 04/23/17 06:26 Assessment and Plan - Assessment and Plan (Free Text) Assessment: ESRD ON HD M W F ANEMIA OF CKD .. ON EPO AND FERRLICIT MMP P: C/O CURRENT CARE C/O PRESENT MANAGEMENT
[2017-04-27] MEDS: (Lantus) Insulin Glargine, Recombinant SC SCH (21:40)
[2017-04-27] MEDS: Latanoprost 2.5 ml Opht Soln OU SCH (21:42)
[2017-04-28] MEDS: Linezolid 600 mg in D5W 300 ml 600 MG/300 ML BAG IVPB SCH ×2 (00:12→12:09)
[2017-04-28] MEDS: HYDROmorphone 0.5 mg/0.5 ml ISec IVP PRN ×2 (00:28→10:55)
[2017-04-28] MEDS: Nystatin 100,000 Units/gm Topical Pow(15 gm) TOP SCH ×3 (05:08→17:54)
[2017-04-28] MEDS: Thiamine 100 mg/ml Inj IV SCH ×3 (06:14→21:54)
[2017-04-28] MEDS: Piperacill/Tazo 2.25gm in Dex 2.25 GM/50 ML BAG IVPB SCH ×3 (06:15→21:54)
[2017-04-28] MEDS ORDERED: Dextrose 50% VIAL Inj (50 ml) IV ONE ×2 (06:28→09:35)
[2017-04-28] MEDS: Dextrose 50% VIAL Inj (50 ml) IV PRN ×2 (06:36→09:46)
[2017-04-28] MEDS: Collagenase 250 Units/gm Ointment(30 gm) TOP SCH ×2 (06:38→17:55)
--- NOTE | 2017-04-28 06:51 | CP.PCM.PN ---
<Josefina Allen - Last Filed: 04/28/17 11:25> Subjective - Date & Time of Evaluation Date of Evaluation: 04/28/17 Time of Evaluation: 07:00 - Subjective Subjective: Medicine Note (PGY-1)-----> Dr. Myrick's service Patient was seen and examined at bedside. Patient is unchanged clinically. As per nursing, patient has low blood glucose this morning. Patient appeared to be quite lethargic this morning. Unable to evaluate appropriate ROS as patient was not very verbal and uncooperative due to current mental status and condition. Objective - Vital Signs/Intake and Output Vital Signs (last 24 hours): Temp Pulse Resp BP Pulse Ox 98.7 F 98 H 20 108/85 100 04/28/17 00:15 04/28/17 00:15 04/28/17 00:15 04/28/17 00:15 04/28/17 00:15 Intake and Output: 04/27/17 04/28/17 18:59 06:59 Intake Total 350 50 Balance 350 50 - Medications Medications: Current Medications Acetaminophen (Tylenol 325mg Tab) 650 mg PO Q6 PRN PRN Reason: Pain, moderate (4-7) Last Admin: 04/26/17 10:36 Dose: 650 mg Apixaban (Eliquis) 5 mg PO BID [facility] Apixaban (Eliquis) 10 mg PO BID [facility] Last Admin: 04/27/17 17:37 Dose: 10 mg Brimonidine Tartrate (Alphagan 0.2% Opht) 1 ml OU TID [facility] Last Admin: 04/27/17 17:38 Dose: 1 drop Collagenase (Santyl) 0 gm TOP Q12H [facility] Last Admin: 04/28/17 06:38 Dose: 1 applic Dextrose (Dextrose 50%) 0 ml IV STAT PRN; Protocol PRN Reason: Hypoglycemia Protocol Last Admin: 04/22/17 16:25 Dose: 50 ml Epoetin Maxwell (Procrit) 10,000 unit IV MWF [facility] Last Admin: 04/27/17 13:09 Dose: 10,000 unit Ergocalciferol (Drisdol 50,000 Intl Units Cap) 1 cap PO Q7D [facility] Last Admin: 04/25/17 22:47 Dose: Not Given Furosemide (Lasix) 40 mg PO DAILY [facility] Last Admin: 04/27/17 09:50 Dose: Not Given Glucagon (Glucagen Diagnostic Kit) 1 mg IM STAT PRN; Protocol PRN Reason: Hypoglycemia Protocol Hydralazine HCl (Apresoline) 25 mg PO BID [facility] Last Admin: 04/27/17 17:39 Dose: Not Given Hydromorphone HCl (Dilaudid) 0.5 mg IVP Q6H PRN PRN Reason: Pain, severe (8-10) Last Admin: 04/28/17 00:28 Dose: 0.5 mg Dextrose/Sodium Chloride (Dextrose 5%/0.45% Ns 1000 Ml) 1,000 mls @ 60 mls/hr IV .[id number] [facility] Last Admin: 04/12/17 13:19 Dose: 60 mls/hr Piperacillin Sod/Tazobactam Sod (Zosyn 2.25 Gm Iv Premix) 2.25 gm in 50 mls @ 200 mls/hr IVPB Q8 [facility] Last Admin: 04/28/17 06:15 Dose: 200 mls/hr Linezolid (Zyvox 600mg/300ml D5w) 600 mg in 300 mls @ 200 mls/hr IVPB Q12H [facility] Last Admin: 04/28/17 00:12 Dose: 200 mls/hr Gentamicin Sulfate/Sodium Chloride (Gentamicin Iv 80 Mg Premix) 80 mg in 100 mls @ 100 mls/hr IVPB MWF [facility] Last Admin: 04/27/17 14:33 Dose: 100 mls/hr Insulin Glargine (Lantus) 15 unit SC HS [facility] Last Admin: 04/27/17 21:40 Dose: 15 u Insulin Human Regular (Novolin R) 0 unit SC ACHS [facility] PRN Reason: Protocol Last Admin: 04/27/17 21:34 Dose: Not Given Latanoprost (Xalatan Opht) 0.02 ml OU HS [facility] Last Admin: 04/27/17 21:42 Dose: 0.02 ml Megestrol Acetate (Megace) 40 mg PO DAILY [facility] Last Admin: 04/27/17 09:50 Dose: Not Given Midodrine (Proamatine) 10 mg PO ONCE PRN PRN Reason: Diastolic blood pressure Last Admin: 04/27/17 11:35 Dose: 10 mg Nystatin (Nystop Topical Powder) 1 gm TOP Q8H [facility] Last Admin: 04/28/17 05:08 Dose: Not Given Pantoprazole Sodium (Protonix Susp) 40 mg PO DAILY [facility] Last Admin: 04/27/17 09:50 Dose: Not Given Rosuvastatin Calcium (Crestor) 10 mg PO HS [facility] Last Admin: 04/27/17 21:42 Dose: 10 mg Thiamine HCl (Vitamin B1 Inj) 100 mg IV Q8H [facility] Last Admin: 04/28/17 06:14 Dose: 100 mg Timolol Maleate (Timoptic 0.5% Ophth Soln) 1 drop OU BID [facility] Last Admin: 04/27/17 17:38 Dose: 1 drop Vitamin B Complex/Vit C/Folic Acid (Nephro-Alonzo) 1 tab PO 0800 [facility] Last Admin: 04/27/17 08:13 Dose: 1 tab - Labs Labs: 04/27/17 10:49 04/27/17 10:49 PT 11.7 SECONDS (9.7-12.2) 04/11/17 18:55 INR 1.0 04/11/17 18:55 APTT 31 SECONDS (21-34) 04/23/17 06:26 - Constitutional Appears: No Acute Distress - Head Exam Head Exam: ATRAUMATIC - Eye Exam Eye Exam: EOMI - ENT Exam ENT Exam: Mucous Membranes Dry - Respiratory Exam Respiratory Exam: NORMAL BREATHING PATTERN Additional comments: Examination limited due to patient's condition Lungs are clear anteriorly and b/l posterior upper lobe ON 2L NC - Cardiovascular Exam Cardiovascular Exam: REGULAR RHYTHM, +S1, +S2 - GI/Abdominal Exam GI & Abdominal Exam: Soft, Normal Bowel Sounds - Extremities Exam Additional comments: Bilateral UE edema (R>L) Left BKA, Dressing changed with island dressing, 4 x 4 and cleaned, clean, dry and intact Right +2 pitting edema - Neurological Exam Neurological Exam: absent: Alert, Oriented x3 Additional comments: Quite Lethargic - Psychiatric Exam Psychiatric exam: Anxious, Depressed - Skin Skin Exam: Pallor Assessment and Plan (1) Sepsis Assessment & Plan: Infectious Disease, Dr. Wellington on board----> help appreciated Leukocytosis with no bandemia * Leukocytosis trending down, continue to monitor with am CBC On admission: WBC: 21.3, HR: 107 Sacral culture (04/11/17) : Gram negative kendy, proteus mirabilis Blood culture (04/11/17): Gram positive cocci, Staphyl aureus and coag-negative staph S/P Left BKA (04/11/17): Gram negative kendy, proteus mirabilis, klebsiella pneumonia and vancomycin resistance E.faecium Medications/management: * Gentamicin 80mg IVPB HD * Zosyn 2.25gm IVPB Q8H * Vancomycin 1gm IVPB on HD---> Discontinued * Linezolid 600mg IVPB Q12H ---> Started on 04/14 Status: Acute (2) Pulmonary embolism Assessment & Plan: Chest CT angio: Filling defects are noted at both upper lobes pulmonary arteries suggestive of pulmonary embolus. Large bilateral pleural effusion. Mild cardiomegaly. [id number] pericardial effusion. [id number] anasarca. Lower lobe atelectasis due to pleural effusion. Medications: Discontinued Heparin drip Started on Eliquis 10mg PO [id number]; after 7 days decrease to 5mg PO daily * Will start eliquis 5mg PO daily (04/30/17) Status: Acute (3) Serum albumin decreased Assessment & Plan: Possibly secondary to decrease PO intake and appetite Medication/Management: * Encourage PO intake * Supplemental drink: Glucerna TID * Continue to monitor with am labs * Megace 40mg PO daily (Appetite stimulant) * Started on D5w LR @ 60mls/hr due hypoglycemic episode. Disposition: Patient's continues to refuse PEG tube placement for appropriate nutrition. Status: Acute (4) End stage renal disease on dialysis Assessment & Plan: [employer], Dr. 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 Broussard consulted * No surgical intervention at this time * Santyl for sacral decub ID, Dr. Wellington consulted Wound care consult Lab: Gram Negative kendy, proteus mirabilis Medication: * Gentamicin 80mg IVPB HD * Zosyn 2.25gm IVPB Q8H * Linezolid 600mg IVPB Q12H (started 04/14/17) Status: Acute (6) S/P BKA (below knee amputation) Assessment & Plan: General Surgery, Dr. Broussard---> Help appreciated * Management as per recommendation * BKA (03/30/17) * Bedside debridement for left BKA stump (04/25/17) by Dr. Broussard ID, Dr. Wellington----> Help appreciated Wound care consult Lab: Wound culture: Gram negative kendy; proteus mirabilis, klebsiella pneumonia and vancomycin resistance E.faecium Medications: * Gentamicin 80mg IVPB HD * Zosyn 2.25gm IVPB Q8H * Linezolid 600mg IVPB Q12H Status: Acute (7) Anemia, chronic disease Assessment & Plan: H/H Stable * transfused 2 units of PRBC on HD (04/15/17) * Continue to monitor Medication: * Procrit 10,000 unit IV TTS ( on HD) Status: Chronic (8) Glaucoma Assessment & Plan: Medications: * Timolol 0.5% OU BID * Latanoprost 0.02 ml OU HS * Brimonidine 1ml OU TID Status: Acute (9) Diabetes mellitus Assessment & Plan: HgbA1C (02/18/17): 8.7 Management/Medication: * Accuchecks * ISS medium dose * Hypoglycemia protocol Status: Acute (10) History of CHF (congestive heart failure) Assessment & Plan: Echo (03/09/17): EF=61%, please refer to the full report for complete impression Medication: * Lasix 40mg PO daily Status: Acute (11) Hypertension Assessment & Plan: Medication: * Norvasc 5mg PO daily (Held due to peripheral edema) * Hydralazine 25mg PO BID * Lisinopril 20mg PO daily Status: Chronic (12) History of hyperlipidemia Assessment & Plan: Crestor 10mg PO HS Status: Acute (13) Prophylactic measure Assessment & Plan: GI: Protonix 40mg PO daily DVT: Heparin 5,000 units SC Q12H PT and OT Disposition: Possible LTAC placement or higher level of subacute care. At this moment, corrections caseworker and addiction social worker are working on possible placement to LTAC All management and plan as per Dr. Myrick Status: Acute <Benson Myrick Jr. - Last Filed: 05/17/17 12:57> Objective - Vital Signs/Intake and Output Vital Signs (last 24 hours): Temp Pulse Resp BP Pulse Ox 99.5 F 134 H 16 135/48 L 100 05/17/17 08:00 05/17/17 11:00 05/17/17 11:00 05/17/17 11:00 05/17/17 11:00 Intake and Output: 05/17/17 05/17/17 06:59 18:59 Intake Total 1285.3 507.5 Output Total 100 Balance 1185.3 507.5 - Medications Medications: Current Medications Acetaminophen (Tylenol 650mg/20.3ml Solution Ud) 650 mg PO Q6 PRN PRN Reason: Fever >100.4 F Last Admin: 05/16/17 12:23 Dose: 650 mg Albumin Human (Albumin Human 5% (12.5 Gm/250 Ml)) 12.5 gm IV MWF PRN PRN Reason: hypotension Last Admin: 05/15/17 11:45 Dose: 12.5 gm Apixaban (Eliquis) 5 mg PO BID [facility] Last Admin: 05/15/17 19:20 Dose: 5 mg Brimonidine Tartrate (Alphagan 0.2% Opht) 1 ml OU TID [facility] Last Admin: 05/17/17 09:54 Dose: 1 applic Collagenase (Santyl) 0 gm TOP DAILY [facility] Last Admin: 05/17/17 09:54 Dose: 1 applic Epoetin Maxwell (Procrit) 10,000 unit IV MWF [facility] Last Admin: 05/15/17 11:11 Dose: 10,000 unit Ergocalciferol (Drisdol 50,000 Intl Units Cap) 1 cap PO Q7D [facility] Last Admin: 05/16/17 22:02 Dose: 1 cap Hydrocortisone Sodium Succinate (Solu-Cortef) 50 mg IV Q8H [facility] Linezolid (Zyvox 600mg/300ml D5w) 600 mg in 300 mls @ 200 mls/hr IVPB Q12 [facility] Last Admin: 05/17/17 09:51 Dose: 200 mls/hr Propofol (Diprivan) 1,000 mg in 100 mls @ 1.762 mls/hr IV .Q24H PRN; Protocol; 5 MCG/KG/MIN PRN Reason: TITRATE PER MD ORDER Last Titration: 05/13/17 20:00 Dose: 10 mcg/kg/min, 3.524 mls/hr Micafungin Sodium 100 mg/ (Sodium Chloride) 100 mls @ 100 mls/hr IV Q24H [facility] Last Admin: 05/16/17 19:44 Dose: 100 mls/hr Norepinephrine Bitartrate 8 mg (/ Sodium Chloride) 250 mls @ 7.5 mls/hr IV .Q24H PRN; Protocol; 4 MCG/MIN PRN Reason: TITRATE PER MD ORDER Last Admin: 05/17/17 07:47 Dose: 20 mcg/min, 37.5 mls/hr Gentamicin Sulfate/Sodium Chloride (Gentamicin Iv 80 Mg Premix) 80 mg in 100 mls @ 100 mls/hr IVPB Q24H [facility] Insulin Glargine (Lantus) 10 unit SC [facility] Last Admin: 05/17/17 09:52 Dose: Not Given Insulin Human Regular (Novolin R) 0 unit SC Q4 [facility] PRN Reason: Protocol Last Admin: 05/17/17 12:12 Dose: Not Given Latanoprost (Xalatan Opht) 0.02 ml OU HS [facility] Last Admin: 05/16/17 21:22 Dose: 0.02 ml Midodrine (Proamatine) 10 mg PO ONCE PRN PRN Reason: Diastolic blood pressure Last Admin: 05/09/17 11:02 Dose: 10 mg Nystatin (Nystop Topical Powder) 1 gm TOP Q8H [facility] Last Admin: 05/17/17 07:53 Dose: 1 applic Pantoprazole Sodium (Protonix Inj) 40 mg IVP DAILY [facility] Last Admin: 05/17/17 09:50 Dose: 40 mg Potassium Phos/Sodium Phos (Neutra-Phos) 1 pkt PO BIDPC [facility] Last Admin: 05/17/17 09:55 Dose: 1 pkt Rosuvastatin Calcium (Crestor) 10 mg PO HS [facility] Last Admin: 05/16/17 21:11 Dose: 10 mg Thiamine HCl (Vitamin B1 Inj) 100 mg IV Q8H [facility] Last Admin: 05/17/17 05:30 Dose: 100 mg Timolol Maleate (Timoptic 0.5% Ophth Soln) 1 drop OU BID [facility] Last Admin: 05/17/17 09:54 Dose: 1 drop Vitamin B Complex/Vit C/Folic Acid (Nephro-Alonzo) 1 tab PO 0800 [facility] Last Admin: 05/17/17 07:53 Dose: 1 tab - Labs Labs: 05/17/17 06:50 05/17/17 06:51 PT 14.8 SECONDS (9.7-12.2) H 05/16/17 06:58 INR 1.3 05/16/17 06:58 APTT 30 SECONDS (21-34) 05/16/17 06:58 Attending/Attestation - Attestation I have personally seen and examined this patient.: Yes I have fully participated in the care of the patient.: Yes I have reviewed all pertinent clinical information, including history, physical exam and plan: Yes Notes (Text): 05/17/17 12:57 Agree with resident note and plan of care
[2017-04-28] MEDS: (Novolin R) Insulin Human Regular 100 units/ml vial SC SCH ×4 (07:37→21:55)
[2017-04-28] MEDS: Multivitamin Vitamin B Complex (Nephro-Vite) Tab PO SCH (08:33)
[2017-04-28] MEDS: Dextrose 5%/0.45% NS 1,000 ML IV SCH (10:07)
[2017-04-28] MEDS: Brimonidine 0.2% Opth Sol (5ml) OU SCH ×3 (10:11→17:54)
[2017-04-28] MEDS: Pantoprazole 40 mg Susp UD PO SCH (10:14)
--- NOTE | 2017-04-28 17:50 | CP.PCM.PN ---
Subjective - Date & Time of Evaluation Date of Evaluation: 04/28/17 Time of Evaluation: 15:00 - Subjective Subjective: SEEN ON RENAL F/U ON HD M W F REMAINS EDEMATOUS .. NEEDS FLIUD RESTRICTION NO CHANGE IN CLINICAL CONDITION Objective - Vital Signs/Intake and Output Vital Signs (last 24 hours): Temp Pulse Resp BP Pulse Ox 97.8 F 89 20 134/80 100 04/28/17 16:32 04/28/17 16:32 04/28/17 16:32 04/28/17 16:32 04/28/17 16:32 Intake and Output: 04/28/17 04/28/17 06:59 18:59 Intake Total 50 400 Balance 50 400 - Medications Medications: Current Medications Acetaminophen (Tylenol 325mg Tab) 650 mg PO Q6 PRN PRN Reason: Pain, moderate (4-7) Last Admin: 04/26/17 10:36 Dose: 650 mg Apixaban (Eliquis) 5 mg PO BID [facility] Apixaban (Eliquis) 10 mg PO BID [facility] Stop: 04/29/17 18:01 Last Admin: 04/28/17 17:48 Dose: 10 mg Brimonidine Tartrate (Alphagan 0.2% Opht) 1 ml OU TID [facility] Last Admin: 04/28/17 13:45 Dose: 1 drop Collagenase (Santyl) 0 gm TOP Q12H [facility] Last Admin: 04/28/17 06:38 Dose: 1 applic Dextrose (Dextrose 50%) 0 ml IV STAT PRN; Protocol PRN Reason: Hypoglycemia Protocol Last Admin: 04/28/17 09:46 Dose: 50 ml Epoetin Maxwell (Procrit) 10,000 unit IV MWF [facility] Last Admin: 04/27/17 13:09 Dose: 10,000 unit Ergocalciferol (Drisdol 50,000 Intl Units Cap) 1 cap PO Q7D [facility] Last Admin: 04/25/17 22:47 Dose: Not Given Furosemide (Lasix) 40 mg PO DAILY [facility] Last Admin: 04/28/17 10:14 Dose: Not Given Glucagon (Glucagen Diagnostic Kit) 1 mg IM STAT PRN; Protocol PRN Reason: Hypoglycemia Protocol Hydralazine HCl (Apresoline) 25 mg PO BID [facility] Last Admin: 04/28/17 17:47 Dose: 25 mg Hydromorphone HCl (Dilaudid) 0.5 mg IVP Q6H PRN PRN Reason: Pain, severe (8-10) Last Admin: 04/28/17 10:55 Dose: 0.5 mg Dextrose/Sodium Chloride (Dextrose 5%/0.45% Ns 1000 Ml) 1,000 mls @ 60 mls/hr IV .[id number] [facility] Last Admin: 04/28/17 10:07 Dose: 60 mls/hr Piperacillin Sod/Tazobactam Sod (Zosyn 2.25 Gm Iv Premix) 2.25 gm in 50 mls @ 200 mls/hr IVPB Q8 [facility] Last Admin: 04/28/17 13:44 Dose: 200 mls/hr Linezolid (Zyvox 600mg/300ml D5w) 600 mg in 300 mls @ 200 mls/hr IVPB Q12H [facility] Last Admin: 04/28/17 12:09 Dose: 200 mls/hr Gentamicin Sulfate/Sodium Chloride (Gentamicin Iv 80 Mg Premix) 80 mg in 100 mls @ 100 mls/hr IVPB MWF [facility] Last Admin: 04/27/17 14:33 Dose: 100 mls/hr Insulin Glargine (Lantus) 15 unit SC [facility] Last Admin: 04/27/17 21:40 Dose: 15 u Insulin Human Regular (Novolin R) 0 unit SC [facility] PRN Reason: Protocol Last Admin: 04/28/17 11:44 Dose: Not Given Latanoprost (Xalatan Opht) 0.02 ml OU [facility] Last Admin: 04/27/17 21:42 Dose: 0.02 ml Megestrol Acetate (Megace) 40 mg PO DAILY [facility] Last Admin: 04/28/17 10:14 Dose: Not Given Midodrine (Proamatine) 10 mg PO ONCE PRN PRN Reason: Diastolic blood pressure Last Admin: 04/27/17 11:35 Dose: 10 mg Nystatin (Nystop Topical Powder) 1 gm TOP Q8H [facility] Last Admin: 04/28/17 08:33 Dose: 1 gra Pantoprazole Sodium (Protonix Susp) 40 mg PO DAILY [facility] Last Admin: 04/28/17 10:14 Dose: Not Given Rosuvastatin Calcium (Crestor) 10 mg PO [facility] Last Admin: 04/27/17 21:42 Dose: 10 mg Thiamine HCl (Vitamin B1 Inj) 100 mg IV Q8H [facility] Last Admin: 04/28/17 13:42 Dose: 100 mg Timolol Maleate (Timoptic 0.5% Ophth Soln) 1 drop OU BID [facility] Last Admin: 04/28/17 10:11 Dose: 1 drop Vitamin B Complex/Vit C/Folic Acid (Nephro-Alonzo) 1 tab PO 0800 [facility] Last Admin: 04/28/17 08:33 Dose: 1 tab - Labs Labs: 04/27/17 10:49 04/27/17 10:49 PT 11.7 SECONDS (9.7-12.2) 04/11/17 18:55 INR 1.0 04/11/17 18:55 APTT 31 SECONDS (21-34) 04/23/17 06:26 Assessment and Plan - Assessment and Plan (Free Text) Assessment: C/O PRESENT CARE C/O SUPPORTIVE MANAGEMENT
[2017-04-28] MEDS: (Lantus) Insulin Glargine, Recombinant SC SCH (21:55)
[2017-04-28] MEDS: Latanoprost 2.5 ml Opht Soln OU SCH (22:05)
[2017-04-29] MEDS: Linezolid 600 mg in D5W 300 ml 600 MG/300 ML BAG IVPB SCH ×2 (00:02→18:27)
[2017-04-29] MEDS: Nystatin 100,000 Units/gm Topical Pow(15 gm) TOP SCH ×3 (00:03→17:15)
[2017-04-29] MEDS: Piperacill/Tazo 2.25gm in Dex 2.25 GM/50 ML BAG IVPB SCH ×3 (05:44→21:31)
[2017-04-29] MEDS: Thiamine 100 mg/ml Inj IV SCH ×3 (05:45→21:31)
[2017-04-29] MEDS: Dextrose 5%/0.45% NS 1,000 ML IV SCH ×2 (05:48→18:40)
[2017-04-29] MEDS: Collagenase 250 Units/gm Ointment(30 gm) TOP SCH ×2 (05:49→18:28)
--- NOTE | 2017-04-29 06:51 | CP.PCM.PN ---
<Josefina Allen - Last Filed: 04/29/17 16:55> Subjective - Date & Time of Evaluation Date of Evaluation: 04/29/17 Time of Evaluation: 07:00 - Subjective Subjective: Medicine Note (PGY-1)-----> Dr. Myrick's service Patient was seen and examined at bedside. Patient is unchanged clinically. Patient was very alert and awake this am. Unable to evaluate appropriate ROS due to patient's condition, however, patient complained of left BKA stump pain. Objective - Vital Signs/Intake and Output Vital Signs (last 24 hours): Temp Pulse Resp BP Pulse Ox 98.7 F 91 H 20 138/71 100 04/29/17 00:00 04/29/17 00:00 04/29/17 00:00 04/29/17 00:00 04/29/17 00:00 Intake and Output: 04/28/17 04/29/17 18:59 06:59 Intake Total 400 Balance 400 - Medications Medications: Current Medications Acetaminophen (Tylenol 325mg Tab) 650 mg PO Q6 PRN PRN Reason: Pain, moderate (4-7) Last Admin: 04/26/17 10:36 Dose: 650 mg Apixaban (Eliquis) 5 mg PO BID [facility] Apixaban (Eliquis) 10 mg PO BID [facility] Stop: 04/29/17 18:01 Last Admin: 04/28/17 17:48 Dose: 10 mg Brimonidine Tartrate (Alphagan 0.2% Opht) 1 ml OU TID [facility] Last Admin: 04/28/17 17:54 Dose: 1 drop Collagenase (Santyl) 0 gm TOP Q12H [facility] Last Admin: 04/29/17 05:49 Dose: 1 applic Dextrose (Dextrose 50%) 0 ml IV STAT PRN; Protocol PRN Reason: Hypoglycemia Protocol Last Admin: 04/28/17 09:46 Dose: 50 ml Epoetin Maxwell (Procrit) 10,000 unit IV MWF [facility] Last Admin: 04/27/17 13:09 Dose: 10,000 unit Ergocalciferol (Drisdol 50,000 Intl Units Cap) 1 cap PO Q7D [facility] Last Admin: 04/25/17 22:47 Dose: Not Given Furosemide (Lasix) 40 mg PO DAILY [facility] Last Admin: 04/28/17 10:14 Dose: Not Given Glucagon (Glucagen Diagnostic Kit) 1 mg IM STAT PRN; Protocol PRN Reason: Hypoglycemia Protocol Hydralazine HCl (Apresoline) 25 mg PO BID [facility] Last Admin: 04/28/17 17:47 Dose: 25 mg Hydromorphone HCl (Dilaudid) 0.5 mg IVP Q6H PRN PRN Reason: Pain, severe (8-10) Last Admin: 04/28/17 10:55 Dose: 0.5 mg Dextrose/Sodium Chloride (Dextrose 5%/0.45% Ns 1000 Ml) 1,000 mls @ 60 mls/hr IV .[id number] [facility] Last Admin: 04/29/17 05:48 Dose: 60 mls/hr Piperacillin Sod/Tazobactam Sod (Zosyn 2.25 Gm Iv Premix) 2.25 gm in 50 mls @ 200 mls/hr IVPB Q8 [facility] Last Admin: 04/29/17 05:44 Dose: 200 mls/hr Linezolid (Zyvox 600mg/300ml D5w) 600 mg in 300 mls @ 200 mls/hr IVPB Q12H [facility] Last Admin: 04/29/17 00:02 Dose: 200 mls/hr Gentamicin Sulfate/Sodium Chloride (Gentamicin Iv 80 Mg Premix) 80 mg in 100 mls @ 100 mls/hr IVPB MWF [facility] Last Admin: 04/27/17 14:33 Dose: 100 mls/hr Insulin Glargine (Lantus) 15 unit SC HS [facility] Last Admin: 04/28/17 21:55 Dose: Not Given Insulin Human Regular (Novolin R) 0 unit SC ACHS [facility] PRN Reason: Protocol Last Admin: 04/28/17 21:55 Dose: Not Given Latanoprost (Xalatan Opht) 0.02 ml OU HS [facility] Last Admin: 04/28/17 22:05 Dose: 0.02 ml Megestrol Acetate (Megace) 40 mg PO DAILY [facility] Last Admin: 04/28/17 10:14 Dose: Not Given Midodrine (Proamatine) 10 mg PO ONCE PRN PRN Reason: Diastolic blood pressure Last Admin: 04/27/17 11:35 Dose: 10 mg Nystatin (Nystop Topical Powder) 1 gm TOP Q8H [facility] Last Admin: 04/29/17 00:03 Dose: 1 gra Pantoprazole Sodium (Protonix Susp) 40 mg PO DAILY [facility] Last Admin: 04/28/17 10:14 Dose: Not Given Rosuvastatin Calcium (Crestor) 10 mg PO HS [facility] Last Admin: 04/28/17 21:55 Dose: 10 mg Thiamine HCl (Vitamin B1 Inj) 100 mg IV Q8H [facility] Last Admin: 04/29/17 05:45 Dose: 100 mg Timolol Maleate (Timoptic 0.5% Ophth Soln) 1 drop OU BID [facility] Last Admin: 04/28/17 17:54 Dose: 1 drop Vitamin B Complex/Vit C/Folic Acid (Nephro-Alonzo) 1 tab PO 0800 [facility] Last Admin: 04/28/17 08:33 Dose: 1 tab - Labs Labs: 04/27/17 10:49 04/27/17 10:49 PT 11.7 SECONDS (9.7-12.2) 04/11/17 18:55 INR 1.0 04/11/17 18:55 APTT 31 SECONDS (21-34) 04/23/17 06:26 - Constitutional Appears: No Acute Distress - Head Exam Head Exam: ATRAUMATIC - Eye Exam Eye Exam: EOMI - ENT Exam ENT Exam: Mucous Membranes Dry - Respiratory Exam Respiratory Exam: NORMAL BREATHING PATTERN Additional comments: Examination limited due to patient's condition Lungs are clear anteriorly and b/l posterior upper lobe ON 2L NC - Cardiovascular Exam Cardiovascular Exam: REGULAR RHYTHM, +S1, +S2 - Extremities Exam Extremities Exam: Pedal Edema Additional comments: Bilateral UE edema (R>L) Left BKA, Dressing changed with island dressing, 4 x 4 and cleaned, clean, dry and intact Right +2 pitting edema - Neurological Exam Neurological Exam: Alert, Awake. absent: Oriented x3 - Psychiatric Exam Psychiatric exam: Depressed - Skin Skin Exam: Normal Color Assessment and Plan (1) Sepsis Assessment & Plan: nfectious Disease, Dr. Wellington on board----> help appreciated Leukocytosis with no bandemia * WBC has normalized On admission: WBC: 21.3, HR: 107 Sacral culture (04/11/17) : Gram negative kendy, proteus mirabilis Blood culture (04/11/17): Gram positive cocci, Staphyl aureus and coag-negative staph S/P Left BKA (04/11/17): Gram negative kendy, proteus mirabilis, klebsiella pneumonia and vancomycin resistance E.faecium Medications/management: * Gentamicin 80mg IVPB HD * Zosyn 2.25gm IVPB Q8H * Vancomycin 1gm IVPB on HD---> Discontinued * Linezolid 600mg IVPB Q12H ---> Started on 04/14 Status: Acute (2) Pulmonary embolism Assessment & Plan: Chest CT angio: Filling defects are noted at both upper lobes pulmonary arteries suggestive of pulmonary embolus. Large bilateral pleural effusion. Mild cardiomegaly. [id number] pericardial effusion. [id number] anasarca. Lower lobe atelectasis due to pleural effusion. Medications: Discontinued Heparin drip Started on Eliquis 10mg PO [id number]; after 7 days decrease to 5mg PO daily * Will start eliquis 5mg PO daily (04/30/17) Status: Acute (3) Serum albumin decreased Assessment & Plan: Possibly secondary to decrease PO intake and appetite Medication/Management: * Encourage PO intake * Supplemental drink: Glucerna TID * Continue to monitor with am labs * Megace 40mg PO daily (Appetite stimulant) * Started on D5w LR @ 60mls/hr due hypoglycemic episode. Disposition: Patient's continues to refuse PEG tube placement for appropriate nutrition. Status: Acute (4) End stage renal disease on dialysis Assessment & Plan: Group Contract Analyst, Dr. 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 Broussard consulted * No surgical intervention at this time * Santyl for sacral decub ID, Dr. Wellington consulted Wound care consult Lab: Gram Negative kendy, proteus mirabilis Medication: * Gentamicin 80mg IVPB HD * Zosyn 2.25gm IVPB Q8H * Linezolid 600mg IVPB Q12H (started 04/14/17) Status: Acute (6) S/P BKA (below knee amputation) Assessment & Plan: General Surgery, Dr. Broussard---> Help appreciated * Management as per recommendation * BKA (03/30/17) * Bedside debridement for left BKA stump (04/25/17) by Dr. Broussard ID, Dr. Wellington----> Help appreciated Wound care consult Lab: Wound culture: Gram negative kendy; proteus mirabilis, klebsiella pneumonia and vancomycin resistance E.faecium Medications: * Gentamicin 80mg IVPB HD * Zosyn 2.25gm IVPB Q8H * Linezolid 600mg IVPB Q12H Status: Acute (7) Anemia, chronic disease Assessment & Plan: H/H Stable * transfused 2 units of PRBC on HD (04/15/17) * Continue to monitor Medication: * Procrit 10,000 unit IV TTS ( on HD) Status: Chronic (8) Glaucoma Assessment & Plan: Medications: * Timolol 0.5% OU BID * Latanoprost 0.02 ml OU HS * Brimonidine 1ml OU TID Status: Acute (9) Diabetes mellitus Assessment & Plan: HgbA1C (02/18/17): 8.7 Management/Medication: * Accuchecks * ISS medium dose * Hypoglycemia protocol Status: Acute (10) History of CHF (congestive heart failure) Assessment & Plan: Echo (03/09/17): EF=61%, please refer to the full report for complete impression Medication: * Lasix 40mg PO daily Status: Acute (11) Hypertension Assessment & Plan: Medication: * Norvasc 5mg PO daily (Held due to peripheral edema) * Hydralazine 25mg PO BID * Lisinopril 20mg PO daily Status: Chronic (12) History of hyperlipidemia Assessment & Plan: Crestor 10mg PO HS Status: Acute (13) Prophylactic measure Assessment & Plan: GI: Protonix 40mg PO daily DVT: Heparin 5,000 units SC Q12H PT and OT Disposition: Possible LTAC placement or higher level of subacute care. At this moment, case loader operator and social media intern are working on possible placement to LTAC and [facility] All management and plan as per Dr. Myrick Status: Acute <Benson Myrick Jr. - Last Filed: 05/17/17 12:58> Objective - Vital Signs/Intake and Output Vital Signs (last 24 hours): Temp Pulse Resp BP Pulse Ox 99.5 F 134 H 16 135/48 L 100 05/17/17 08:00 05/17/17 11:00 05/17/17 11:00 05/17/17 11:00 05/17/17 11:00 Intake and Output: 05/17/17 05/17/17 06:59 18:59 Intake Total 1285.3 507.5 Output Total 100 Balance 1185.3 507.5 - Medications Medications: Current Medications Acetaminophen (Tylenol 650mg/20.3ml Solution Ud) 650 mg PO Q6 PRN PRN Reason: Fever >100.4 F Last Admin: 05/16/17 12:23 Dose: 650 mg Albumin Human (Albumin Human 5% (12.5 Gm/250 Ml)) 12.5 gm IV MWF PRN PRN Reason: hypotension Last Admin: 05/15/17 11:45 Dose: 12.5 gm Apixaban (Eliquis) 5 mg PO BID [facility] Last Admin: 05/15/17 19:20 Dose: 5 mg Brimonidine Tartrate (Alphagan 0.2% Opht) 1 ml OU TID [facility] Last Admin: 05/17/17 09:54 Dose: 1 applic Collagenase (Santyl) 0 gm TOP DAILY [facility] Last Admin: 05/17/17 09:54 Dose: 1 applic Epoetin Maxwell (Procrit) 10,000 unit IV MWF [facility] Last Admin: 05/15/17 11:11 Dose: 10,000 unit Ergocalciferol (Drisdol 50,000 Intl Units Cap) 1 cap PO Q7D [facility] Last Admin: 05/16/17 22:02 Dose: 1 cap Hydrocortisone Sodium Succinate (Solu-Cortef) 50 mg IV Q8H [facility] Linezolid (Zyvox 600mg/300ml D5w) 600 mg in 300 mls @ 200 mls/hr IVPB Q12 [facility] Last Admin: 05/17/17 09:51 Dose: 200 mls/hr Propofol (Diprivan) 1,000 mg in 100 mls @ 1.762 mls/hr IV .Q24H PRN; Protocol; 5 MCG/KG/MIN PRN Reason: TITRATE PER MD ORDER Last Titration: 05/13/17 20:00 Dose: 10 mcg/kg/min, 3.524 mls/hr Micafungin Sodium 100 mg/ (Sodium Chloride) 100 mls @ 100 mls/hr IV Q24H [facility] Last Admin: 05/16/17 19:44 Dose: 100 mls/hr Norepinephrine Bitartrate 8 mg (/ Sodium Chloride) 250 mls @ 7.5 mls/hr IV .Q24H PRN; Protocol; 4 MCG/MIN PRN Reason: TITRATE PER MD ORDER Last Admin: 05/17/17 07:47 Dose: 20 mcg/min, 37.5 mls/hr Gentamicin Sulfate/Sodium Chloride (Gentamicin Iv 80 Mg Premix) 80 mg in 100 mls @ 100 mls/hr IVPB Q24H [facility] Insulin Glargine (Lantus) 10 unit SC [facility] Last Admin: 05/17/17 09:52 Dose: Not Given Insulin Human Regular (Novolin R) 0 unit SC Q4 [facility] PRN Reason: Protocol Last Admin: 05/17/17 12:12 Dose: Not Given Latanoprost (Xalatan Opht) 0.02 ml OU HS [facility] Last Admin: 05/16/17 21:22 Dose: 0.02 ml Midodrine (Proamatine) 10 mg PO ONCE PRN PRN Reason: Diastolic blood pressure Last Admin: 05/09/17 11:02 Dose: 10 mg Nystatin (Nystop Topical Powder) 1 gm TOP Q8H [facility] Last Admin: 05/17/17 07:53 Dose: 1 applic Pantoprazole Sodium (Protonix Inj) 40 mg IVP DAILY [facility] Last Admin: 05/17/17 09:50 Dose: 40 mg Potassium Phos/Sodium Phos (Neutra-Phos) 1 pkt PO BIDPC [facility] Last Admin: 05/17/17 09:55 Dose: 1 pkt Rosuvastatin Calcium (Crestor) 10 mg PO HS [facility] Last Admin: 05/16/17 21:11 Dose: 10 mg Thiamine HCl (Vitamin B1 Inj) 100 mg IV Q8H [facility] Last Admin: 05/17/17 05:30 Dose: 100 mg Timolol Maleate (Timoptic 0.5% Ophth Soln) 1 drop OU BID [facility] Last Admin: 05/17/17 09:54 Dose: 1 drop Vitamin B Complex/Vit C/Folic Acid (Nephro-Alonzo) 1 tab PO 0800 [facility] Last Admin: 05/17/17 07:53 Dose: 1 tab - Labs Labs: 05/17/17 06:50 05/17/17 06:51 PT 14.8 SECONDS (9.7-12.2) H 05/16/17 06:58 INR 1.3 05/16/17 06:58 APTT 30 SECONDS (21-34) 05/16/17 06:58 Attending/Attestation - Attestation I have personally seen and examined this patient.: Yes I have fully participated in the care of the patient.: Yes I have reviewed all pertinent clinical information, including history, physical exam and plan: Yes Notes (Text): 05/17/17 12:58 Agree with resident note and plan of care
[2017-04-29] MEDS: Multivitamin Vitamin B Complex (Nephro-Vite) Tab PO SCH (08:34)
[2017-04-29] MEDS: (Novolin R) Insulin Human Regular 100 units/ml vial SC SCH ×4 (09:47→21:47)
[2017-04-29] MEDS: Pantoprazole 40 mg Susp UD PO SCH (09:49)
[2017-04-29] MEDS: Brimonidine 0.2% Opth Sol (5ml) OU SCH ×3 (09:49→17:24)
[2017-04-29] MEDS: HYDROmorphone 0.5 mg/0.5 ml ISec IVP PRN ×2 (09:59→18:29)
[2017-04-29 10:52] LABS: BASO # 0.1 K/uL (0.0-0.2); BASO % 0.6 % (0.0-2.0); EOS # 0.1 K/uL (0.0-0.7); EOS % 0.6 % (0.0-4.0); HEMATOCRIT 28.7 % (34.0-47.0); LYMPH # 0.7 K/uL (1.0-4.3); LYMPH % 7.2 % (20.0-40.0); MEAN CELL VOLUME 94.9 fL (81.0-99.0); MEAN CORPUSCULAR HEMOGLOBIN 30.3 pg (27.0-31.0); MEAN CORPUSCULAR HGB CONC 31.9 g/dL (33.0-37.0); MEAN PLATELET VOLUME 8.8 fL (7.2-11.7); MONO # 0.3 K/uL (0.0-0.8); MONO % 3.1 % (0.0-10.0); NRBC % 0.1 % (0.0-2.0); RED CELL DISTRIBUTION WIDTH 18.2 % (11.5-14.5); WHITE BLOOD COUNT 9.7 K/uL (4.8-10.8)
[2017-04-29 11:06] LABS: PLATELET COUNT 117 K/uL (130-400)
[2017-04-29 11:31] LABS: ALB/GLOB RATIO 1.1 (1.0-2.1); BILIRUBIN,TOTAL 0.5 mg/dL (0.2-1.3); CALCIUM 6.8 mg/dl (8.6-10.4); MAGNESIUM 1.6 mg/dL (1.6-2.3); PHOSPHOROUS 2.9 mg/dL (2.5-4.5); POTASSIUM 3.1 mmol/L (3.6-5.2); TOTAL PROTEIN 4.2 g/dL (6.3-8.3)
[2017-04-29] MEDS: Epoetin Alfa 10,000 unit/ml Dialysis IV SCH (12:15)
[2017-04-29 13:33] LABS: EOSINOPHIL 1 % (0-4); NEUTROPHIL 89 % (50-75); TOTAL CELLS COUNTED 100
[2017-04-29] MEDS: Gentamicin 80 mg in 0.9% NS 80 MG/100 ML BAG IVPB SCH (15:42)
[2017-04-29] MEDS: Latanoprost 2.5 ml Opht Soln OU SCH (21:31)
[2017-04-29] MEDS: (Lantus) Insulin Glargine, Recombinant SC SCH (21:47)
--- NOTE | 2017-04-29 23:42 | CP.PCM.PN ---
Subjective - Date & Time of Evaluation Date of Evaluation: 04/29/17 Time of Evaluation: 13:00 - Subjective Subjective: SEEN ON RENAL F/U SEEN ON HD K IS LOW .. NA IS LOW BP IS ADEQUATE Objective - Vital Signs/Intake and Output Vital Signs (last 24 hours): Temp Pulse Resp BP Pulse Ox 97.9 F 85 20 101/59 L 98 04/29/17 17:00 12 17:27 04/29/17 17:00 04/29/17 17:27 04/29/17 17:00 Intake and Output: 04/29/17 04/30/17 18:59 06:59 Intake Total 480 630 Balance 480 630 - Medications Medications: Current Medications Acetaminophen (Tylenol 325mg Tab) 650 mg PO Q6 PRN PRN Reason: Pain, moderate (4-7) Last Admin: 04/26/17 10:36 Dose: 650 mg Apixaban (Eliquis) 5 mg PO BID [facility] Brimonidine Tartrate (Alphagan 0.2% Opht) 1 ml OU TID [facility] Last Admin: 04/29/17 17:24 Dose: 1 drop Collagenase (Santyl) 0 gm TOP Q12H [facility] Last Admin: 04/29/17 18:28 Dose: 1 applic Dextrose (Dextrose 50%) 0 ml IV STAT PRN; Protocol PRN Reason: Hypoglycemia Protocol Last Admin: 04/28/17 09:46 Dose: 50 ml Epoetin Maxwell (Procrit) 10,000 unit IV MWF [facility] Last Admin: 04/29/17 12:15 Dose: 10,000 unit Ergocalciferol (Drisdol 50,000 Intl Units Cap) 1 cap PO Q7D [facility] Last Admin: 04/25/17 22:47 Dose: Not Given Furosemide (Lasix) 40 mg PO DAILY [facility] Last Admin: 04/29/17 10:00 Dose: Not Given Glucagon (Glucagen Diagnostic Kit) 1 mg IM STAT PRN; Protocol PRN Reason: Hypoglycemia Protocol Hydralazine HCl (Apresoline) 25 mg PO BID [facility] Last Admin: 04/29/17 17:24 Dose: Not Given Hydromorphone HCl (Dilaudid) 0.5 mg IVP Q6H PRN PRN Reason: Pain, severe (8-10) Last Admin: 04/29/17 18:29 Dose: 0.5 mg Dextrose/Sodium Chloride (Dextrose 5%/0.45% Ns 1000 Ml) 1,000 mls @ 60 mls/hr IV .[id number] [facility] Last Admin: 04/29/17 18:40 Dose: Not Given Piperacillin Sod/Tazobactam Sod (Zosyn 2.25 Gm Iv Premix) 2.25 gm in 50 mls @ 200 mls/hr IVPB Q8 [facility] Last Admin: 04/29/17 21:31 Dose: 200 mls/hr Linezolid (Zyvox 600mg/300ml D5w) 600 mg in 300 mls @ 200 mls/hr IVPB Q12H [facility] Last Admin: 04/29/17 18:27 Dose: 200 mls/hr Gentamicin Sulfate/Sodium Chloride (Gentamicin Iv 80 Mg Premix) 80 mg in 100 mls @ 100 mls/hr IVPB MWF [facility] Last Admin: 04/29/17 15:42 Dose: 100 mls/hr Insulin Glargine (Lantus) 15 unit SC [facility] Last Admin: 04/29/17 21:47 Dose: 15 u Insulin Human Regular (Novolin R) 0 unit SC [facility] PRN Reason: Protocol Last Admin: 04/29/17 21:47 Dose: 3 unit Latanoprost (Xalatan Opht) 0.02 ml OU [facility] Last Admin: 04/29/17 21:31 Dose: 0.02 ml Megestrol Acetate (Megace) 40 mg PO DAILY [facility] Last Admin: 04/29/17 10:00 Dose: Not Given Midodrine (Proamatine) 10 mg PO ONCE PRN PRN Reason: Diastolic blood pressure Last Admin: 04/29/17 09:50 Dose: 10 mg Nystatin (Nystop Topical Powder) 1 gm TOP Q8H [facility] Last Admin: 04/29/17 17:15 Dose: 1 gra Pantoprazole Sodium (Protonix Susp) 40 mg PO DAILY [facility] Last Admin: 04/29/17 09:49 Dose: 40 mg Potassium Chloride (K-Dur 20 Meq Er Tab) 20 meq PO ONCE ONE Stop: 04/30/17 23:32 Rosuvastatin Calcium (Crestor) 10 mg PO [facility] Last Admin: 04/29/17 21:31 Dose: 10 mg Thiamine HCl (Vitamin B1 Inj) 100 mg IV Q8H [facility] Last Admin: 04/29/17 21:31 Dose: 100 mg Timolol Maleate (Timoptic 0.5% Oph Sol) 1 drop OU BID [facility] Last Admin: 04/29/17 17:24 Dose: 1 drop Vitamin B Complex/Vit C/Folic Acid (Nephro-Alonzo) 1 tab PO 0800 [facility] Last Admin: 04/29/17 08:34 Dose: 1 tab - Labs Labs: 04/29/17 10:41 04/29/17 10:41 PT 11.7 SECONDS (9.7-12.2) 04/11/17 18:55 INR 1.0 04/11/17 18:55 APTT 31 SECONDS (21-34) 04/23/17 06:26 Assessment and Plan - Assessment and Plan (Free Text) Assessment: ESRD ON HD M W F ANEMIA OF CKD .. ON EPO MMP ..SEPSIS P : C/O CURRENT CARE C/O PRESENT MEDS
[2017-04-30] MEDS: Linezolid 600 mg in D5W 300 ml 600 MG/300 ML BAG IVPB SCH ×2 (00:41→12:46)
[2017-04-30] MEDS: Potassium Chloride 20 mEq ER Tab PO ONE ×2 (00:41→01:03)
[2017-04-30] MEDS: Nystatin 100,000 Units/gm Topical Pow(15 gm) TOP SCH ×3 (00:42→17:05)
[2017-04-30] MEDS: Piperacill/Tazo 2.25gm in Dex 2.25 GM/50 ML BAG IVPB SCH ×3 (05:53→21:18)
[2017-04-30] MEDS: Thiamine 100 mg/ml Inj IV SCH ×3 (05:53→21:33)
[2017-04-30] MEDS: Collagenase 250 Units/gm Ointment(30 gm) TOP SCH ×2 (07:03→18:35)
[2017-04-30] MEDS: (Novolin R) Insulin Human Regular 100 units/ml vial SC SCH ×4 (07:46→21:45)
[2017-04-30] MEDS: Brimonidine 0.2% Opth Sol (5ml) OU SCH ×3 (09:00→18:34)
[2017-04-30] MEDS: Multivitamin Vitamin B Complex (Nephro-Vite) Tab PO SCH (09:00)
[2017-04-30] MEDS: Pantoprazole 40 mg Susp UD PO SCH (10:00)
--- NOTE | 2017-04-30 10:54 | CP.PCM.PN ---
<AlejandroAnnedaniel Weeks - Last Filed: 04/30/17 17:25> Subjective - Date & Time of Evaluation Date of Evaluation: 04/30/17 Time of Evaluation: 07:15 - Subjective Subjective: Medicine Note (PGY-1)-----> Dr. Myrick's service Patient was seen and examined at bedside. Patient is unchanged clinically. Patient was very lethargic this morning. Unable to evaluate appropriate ROS due to patient's condition, however, patient only continues to complain of pain at left BKA stump during dressing changes. Objective - Vital Signs/Intake and Output Vital Signs (last 24 hours): Temp Pulse Resp BP Pulse Ox 98.2 F 86 20 136/77 99 04/30/17 08:19 04/30/17 08:19 04/30/17 08:19 04/30/17 08:19 04/30/17 08:19 Intake and Output: 04/30/17 04/30/17 06:59 18:59 Intake Total 630 Balance 630 - Medications Medications: Current Medications Acetaminophen (Tylenol 325mg Tab) 650 mg PO Q6 PRN PRN Reason: Pain, moderate (4-7) Last Admin: 04/26/17 10:36 Dose: 650 mg Apixaban (Eliquis) 5 mg PO BID [facility] Brimonidine Tartrate (Alphagan 0.2% Opht) 1 ml OU TID [facility] Last Admin: 04/29/17 17:24 Dose: 1 drop Collagenase (Santyl) 0 gm TOP Q12H [facility] Last Admin: 04/30/17 07:03 Dose: 1 applic Dextrose (Dextrose 50%) 0 ml IV STAT PRN; Protocol PRN Reason: Hypoglycemia Protocol Last Admin: 04/28/17 09:46 Dose: 50 ml Epoetin Maxwell (Procrit) 10,000 unit IV MWF [facility] Last Admin: 04/29/17 12:15 Dose: 10,000 unit Ergocalciferol (Drisdol 50,000 Intl Units Cap) 1 cap PO Q7D [facility] Last Admin: 04/25/17 22:47 Dose: Not Given Furosemide (Lasix) 40 mg PO DAILY [facility] Last Admin: 04/29/17 10:00 Dose: Not Given Glucagon (Glucagen Diagnostic Kit) 1 mg IM STAT PRN; Protocol PRN Reason: Hypoglycemia Protocol Hydralazine HCl (Apresoline) 25 mg PO BID [facility] Last Admin: 04/29/17 17:24 Dose: Not Given Hydromorphone HCl (Dilaudid) 0.5 mg IVP Q6H PRN PRN Reason: Pain, severe (8-10) Last Admin: 04/29/17 18:29 Dose: 0.5 mg Dextrose/Sodium Chloride (Dextrose 5%/0.45% Ns 1000 Ml) 1,000 mls @ 60 mls/hr IV .[id number] [facility] Last Admin: 04/29/17 18:40 Dose: Not Given Piperacillin Sod/Tazobactam Sod (Zosyn 2.25 Gm Iv Premix) 2.25 gm in 50 mls @ 200 mls/hr IVPB Q8 [facility] Last Admin: 04/30/17 05:53 Dose: 200 mls/hr Linezolid (Zyvox 600mg/300ml D5w) 600 mg in 300 mls @ 200 mls/hr IVPB Q12H [facility] Last Admin: 04/30/17 00:41 Dose: 200 mls/hr Gentamicin Sulfate/Sodium Chloride (Gentamicin Iv 80 Mg Premix) 80 mg in 100 mls @ 100 mls/hr IVPB MWF [facility] Last Admin: 04/29/17 15:42 Dose: 100 mls/hr Insulin Glargine (Lantus) 15 unit SC [facility] Last Admin: 04/29/17 21:47 Dose: 15 u Insulin Human Regular (Novolin R) 0 unit SC ACHS [facility] PRN Reason: Protocol Last Admin: 04/30/17 07:46 Dose: Not Given Latanoprost (Xalatan Opht) 0.02 ml OU HS [facility] Last Admin: 04/29/17 21:31 Dose: 0.02 ml Megestrol Acetate (Megace) 40 mg PO DAILY [facility] Last Admin: 04/29/17 10:00 Dose: Not Given Midodrine (Proamatine) 10 mg PO ONCE PRN PRN Reason: Diastolic blood pressure Last Admin: 04/29/17 09:50 Dose: 10 mg Nystatin (Nystop Topical Powder) 1 gm TOP Q8H [facility] Last Admin: 04/30/17 00:42 Dose: 1 gra Pantoprazole Sodium (Protonix Susp) 40 mg PO DAILY [facility] Last Admin: 04/29/17 09:49 Dose: 40 mg Rosuvastatin Calcium (Crestor) 10 mg PO HS [facility] Last Admin: 04/29/17 21:31 Dose: 10 mg Thiamine HCl (Vitamin B1 Inj) 100 mg IV Q8H [facility] Last Admin: 04/30/17 05:53 Dose: 100 mg Timolol Maleate (Timoptic 0.5% Ophth Soln) 1 drop OU BID [facility] Last Admin: 04/29/17 17:24 Dose: 1 drop Vitamin B Complex/Vit C/Folic Acid (Nephro-Alonzo) 1 tab PO 0800 [facility] Last Admin: 04/29/17 08:34 Dose: 1 tab - Labs Labs: 04/29/17 10:41 04/29/17 10:41 PT 11.7 SECONDS (9.7-12.2) 04/11/17 18:55 INR 1.0 04/11/17 18:55 APTT 31 SECONDS (21-34) 04/23/17 06:26 - Constitutional Appears: No Acute Distress - Head Exam Head Exam: ATRAUMATIC - Eye Exam Eye Exam: EOMI - ENT Exam ENT Exam: Mucous Membranes Dry - Respiratory Exam Respiratory Exam: NORMAL BREATHING PATTERN Additional comments: Examination limited due to patient's condition Lungs are clear anteriorly and b/l posterior upper lobe ON 2L NC - Cardiovascular Exam Cardiovascular Exam: REGULAR RHYTHM, +S1, +S2 - GI/Abdominal Exam GI & Abdominal Exam: Soft, Normal Bowel Sounds. absent: Guarding, Rigid, Tenderness, Diminished Bowel Sounds, Hypoactive Bowel Sounds - Extremities Exam Additional comments: Bilateral UE edema (R>L) Left BKA, Dressing changed with island dressing, 4 x 4 and cleaned, clean, dry and intact Right +2 pitting edema - Neurological Exam Neurological Exam: absent: Oriented x3 - Psychiatric Exam Psychiatric exam: Depressed, Flat Affect - Skin Skin Exam: Normal Color Assessment and Plan (1) Sepsis Assessment & Plan: Infectious Disease, Dr. Wellington on board----> help appreciated Leukocytosis with no bandemia * WBC has normalized On admission: WBC: 21.3, HR: 107 Sacral culture (04/11/17) : Gram negative kendy, proteus mirabilis Blood culture (04/11/17): Gram positive cocci, Staphyl aureus and coag-negative staph S/P Left BKA (04/11/17): Gram negative kendy, proteus mirabilis, klebsiella pneumonia and vancomycin resistance E.faecium Medications/management: * Gentamicin 80mg IVPB HD * Zosyn 2.25gm IVPB Q8H * Vancomycin 1gm IVPB on HD---> Discontinued * Linezolid 600mg IVPB Q12H ---> Started on 04/14 Status: Acute (2) Pulmonary embolism Assessment & Plan: Chest CT angio: Filling defects are noted at both upper lobes pulmonary arteries suggestive of pulmonary embolus. Large bilateral pleural effusion. Mild cardiomegaly. [id number] pericardial effusion. Qgdx-[id number]-[id number] anasarca. Lower lobe atelectasis due to pleural effusion. Medications: Discontinued Heparin drip Started on eliquis 5mg PO daily (04/30/17) after completion of eliquis 10mg Po daily for 7 days Status: Acute (3) Serum albumin decreased Assessment & Plan: Possibly secondary to decrease PO intake and appetite Medication/Management: * Encourage PO intake * Supplemental drink: Glucerna TID * Continue to monitor with am labs * Megace 40mg PO daily (Appetite stimulant) * Started on D5w LR @ 60mls/hr due hypoglycemic episode. Disposition: Patient's continues to refuse PEG tube placement for appropriate nutrition. Status: Acute (4) End stage renal disease on dialysis Assessment & Plan: Asphalt Dauber, Dr. Ambrose---> Help appreciated * Management as per recommendation Management/Medications: On HD (TTS) ---> MWF ( for this admission) * Via Left Arm shunt * PICC line inserted by IR 03/23/17 - DVT in R upper extremity Ergocalciferol 1 cap PO Q7D Procrit 10,000 unit IV MWF Ferric sodium gluconate 125 mg MWF Nephrovite Eliquis 5mg PO BID; after the completion of 10mg PO bid for 7 days for R upper extremity DVT Status: Chronic (5) Sacral decubitus ulcer, stage III Assessment & Plan: General Surgery, Dr. Broussard consulted * No surgical intervention at this time * Santyl for sacral decub ID, Dr. Wellington consulted Wound care consult Lab: Gram Negative kendy, proteus mirabilis Medication: * Gentamicin 80mg IVPB HD * Zosyn 2.25gm IVPB Q8H * Linezolid 600mg IVPB Q12H (started 04/14/17) Status: Acute (6) S/P BKA (below knee amputation) Assessment & Plan: General Surgery, Dr. Broussard---> Help appreciated * Management as per recommendation * BKA (03/30/17) * Bedside debridement for left BKA stump (04/25/17) by Dr. Broussard ID, Dr. Wellington----> Help appreciated Wound care consult Daily dressing changes with santyl Lab: Wound culture: Gram negative kendy; proteus mirabilis, klebsiella pneumonia and vancomycin resistance E.faecium Medications: * Gentamicin 80mg IVPB HD * Zosyn 2.25gm IVPB Q8H * Linezolid 600mg IVPB Q12H Status: Acute (7) Anemia, chronic disease Assessment & Plan: H/H Stable * transfused 2 units of PRBC on HD (04/15/17) * Continue to monitor Medication: * Procrit 10,000 unit IV TTS ( on HD) on this admission, M,W,F Status: Chronic (8) Glaucoma Assessment & Plan: Medications: * Timolol 0.5% OU BID * Latanoprost 0.02 ml OU HS * Brimonidine 1ml OU TID Status: Acute (9) Diabetes mellitus Assessment & Plan: HgbA1C (02/18/17): 8.7 Management/Medication: * Accuchecks * ISS medium dose * Hypoglycemia protocol Status: Acute (10) History of CHF (congestive heart failure) Assessment & Plan: Echo (03/09/17): EF=61%, please refer to the full report for complete impression Medication: * Lasix 40mg PO daily Status: Acute (11) Hypertension Assessment & Plan: Medication: * Norvasc 5mg PO daily (Held due to chronic right peripheral edema) * Hydralazine 25mg PO BID * Lisinopril 20mg PO daily Status: Chronic (12) History of hyperlipidemia Assessment & Plan: Crestor 10mg PO HS Status: Acute (13) Prophylactic measure Assessment & Plan: GI: Protonix 40mg PO daily DVT: Heparin 5,000 units SC Q12H PT and OT Disposition: Possible LTAC placement or higher level of subacute care. At this moment, nurse outreach case manager and social media director are working on possible placement to LTAC and [facility]. At this moment, patient has been denies at LTAC, however nurse outreach case manager/social media director and Dr. Myrick are working for an alternative All management and plan as per Dr. Myrick Status: Acute <Benson Myrick Jr. - Last Filed: 05/17/17 12:59> Objective - Vital Signs/Intake and Output Vital Signs (last 24 hours): Temp Pulse Resp BP Pulse Ox 99.5 F 134 H 16 135/48 L 100 05/17/17 08:00 05/17/17 11:00 05/17/17 11:00 05/17/17 11:00 05/17/17 11:00 Intake and Output: 05/17/17 05/17/17 06:59 18:59 Intake Total 1285.3 507.5 Output Total 100 Balance 1185.3 507.5 - Medications Medications: Current Medications Acetaminophen (Tylenol 650mg/20.3ml Solution Ud) 650 mg PO Q6 PRN PRN Reason: Fever >100.4 F Last Admin: 05/16/17 12:23 Dose: 650 mg Albumin Human (Albumin Human 5% (12.5 Gm/250 Ml)) 12.5 gm IV MWF PRN PRN Reason: hypotension Last Admin: 05/15/17 11:45 Dose: 12.5 gm Apixaban (Eliquis) 5 mg PO BID [facility] Last Admin: 05/15/17 19:20 Dose: 5 mg Brimonidine Tartrate (Alphagan 0.2% Opht) 1 ml OU TID [facility] Last Admin: 05/17/17 09:54 Dose: 1 applic Collagenase (Santyl) 0 gm TOP DAILY [facility] Last Admin: 05/17/17 09:54 Dose: 1 applic Epoetin Maxwell (Procrit) 10,000 unit IV MWF [facility] Last Admin: 05/15/17 11:11 Dose: 10,000 unit Ergocalciferol (Drisdol 50,000 Intl Units Cap) 1 cap PO Q7D [facility] Last Admin: 05/16/17 22:02 Dose: 1 cap Hydrocortisone Sodium Succinate (Solu-Cortef) 50 mg IV Q8H [facility] Linezolid (Zyvox 600mg/300ml D5w) 600 mg in 300 mls @ 200 mls/hr IVPB Q12 [facility] Last Admin: 05/17/17 09:51 Dose: 200 mls/hr Propofol (Diprivan) 1,000 mg in 100 mls @ 1.762 mls/hr IV .Q24H PRN; Protocol; 5 MCG/KG/MIN PRN Reason: TITRATE PER MD ORDER Last Titration: 05/13/17 20:00 Dose: 10 mcg/kg/min, 3.524 mls/hr Micafungin Sodium 100 mg/ (Sodium Chloride) 100 mls @ 100 mls/hr IV Q24H [facility] Last Admin: 05/16/17 19:44 Dose: 100 mls/hr Norepinephrine Bitartrate 8 mg (/ Sodium Chloride) 250 mls @ 7.5 mls/hr IV .Q24H PRN; Protocol; 4 MCG/MIN PRN Reason: TITRATE PER MD ORDER Last Admin: 05/17/17 07:47 Dose: 20 mcg/min, 37.5 mls/hr Gentamicin Sulfate/Sodium Chloride (Gentamicin Iv 80 Mg Premix) 80 mg in 100 mls @ 100 mls/hr IVPB Q24H [facility] Insulin Glargine (Lantus) 10 unit SC [facility] Last Admin: 05/17/17 09:52 Dose: Not Given Insulin Human Regular (Novolin R) 0 unit SC Q4 [facility] PRN Reason: Protocol Last Admin: 05/17/17 12:12 Dose: Not Given Latanoprost (Xalatan Opht) 0.02 ml OU HS [facility] Last Admin: 05/16/17 21:22 Dose: 0.02 ml Midodrine (Proamatine) 10 mg PO ONCE PRN PRN Reason: Diastolic blood pressure Last Admin: 05/09/17 11:02 Dose: 10 mg Nystatin (Nystop Topical Powder) 1 gm TOP Q8H [facility] Last Admin: 05/17/17 07:53 Dose: 1 applic Pantoprazole Sodium (Protonix Inj) 40 mg IVP DAILY [facility] Last Admin: 05/17/17 09:50 Dose: 40 mg Potassium Phos/Sodium Phos (Neutra-Phos) 1 pkt PO BIDPC [facility] Last Admin: 05/17/17 09:55 Dose: 1 pkt Rosuvastatin Calcium (Crestor) 10 mg PO HS [facility] Last Admin: 05/16/17 21:11 Dose: 10 mg Thiamine HCl (Vitamin B1 Inj) 100 mg IV Q8H [facility] Last Admin: 05/17/17 05:30 Dose: 100 mg Timolol Maleate (Timoptic 0.5% Ophth Soln) 1 drop OU BID [facility] Last Admin: 05/17/17 09:54 Dose: 1 drop Vitamin B Complex/Vit C/Folic Acid (Nephro-Alonzo) 1 tab PO 0800 [facility] Last Admin: 05/17/17 07:53 Dose: 1 tab - Labs Labs: 05/17/17 06:50 05/17/17 06:51 PT 14.8 SECONDS (9.7-12.2) H 05/16/17 06:58 INR 1.3 05/16/17 06:58 APTT 30 SECONDS (21-34) 05/16/17 06:58 Attending/Attestation - Attestation I have personally seen and examined this patient.: Yes I have fully participated in the care of the patient.: Yes I have reviewed all pertinent clinical information, including history, physical exam and plan: Yes Notes (Text): 05/17/17 12:59 Agree with resident note and plan of care
[2017-04-30] MEDS ORDERED: Dextrose 50% VIAL Inj (50 ml) IV ONE (11:14)
[2017-04-30] MEDS ORDERED: Dextrose 50% SYRINGE Inj (50 ml) IV STA (11:54)
[2017-04-30] MEDS ORDERED: Dextrose 50% SYRINGE Inj (50 ml) IV ONE (12:15)
[2017-04-30] MEDS: Dextrose 50% VIAL Inj (50 ml) IV PRN ×2 (12:39→12:41)
[2017-04-30] MEDS: Dextrose 5%/0.45% NS 1,000 ML IV SCH (12:39)
[2017-04-30] MEDS: HYDROmorphone 0.5 mg/0.5 ml ISec IVP PRN (19:07)
--- NOTE | 2017-04-30 20:31 | CP.PCM.PN ---
Subjective - Date & Time of Evaluation Date of Evaluation: 04/30/17 Time of Evaluation: 15:00 - Subjective Subjective: SEEN ON RENAL F/U CLINICALLY THE SAME RESPONDS SLOWLY EDEMA PERSIST ALL PREVIOUS EMR REVIEWED Objective - Vital Signs/Intake and Output Vital Signs (last 24 hours): Temp Pulse Resp BP Pulse Ox 98.4 F 87 20 99/56 L 100 04/30/17 15:20 04/30/17 18:32 04/30/17 15:20 04/30/17 18:32 04/30/17 15:20 - Medications Medications: Current Medications Acetaminophen (Tylenol 325mg Tab) 650 mg PO Q6 PRN PRN Reason: Pain, moderate (4-7) Last Admin: 04/26/17 10:36 Dose: 650 mg Apixaban (Eliquis) 5 mg PO BID [facility] Last Admin: 04/30/17 18:33 Dose: 5 mg Brimonidine Tartrate (Alphagan 0.2% Opht) 1 ml OU TID [facility] Last Admin: 04/30/17 18:34 Dose: 1 drop Collagenase (Santyl) 0 gm TOP Q12H [facility] Last Admin: 04/30/17 18:35 Dose: 1 applic Dextrose (Dextrose 50%) 0 ml IV STAT PRN; Protocol PRN Reason: Hypoglycemia Protocol Last Admin: 04/28/17 09:46 Dose: 50 ml Epoetin Maxwell (Procrit) 10,000 unit IV MWF [facility] Last Admin: 04/29/17 12:15 Dose: 10,000 unit Ergocalciferol (Drisdol 50,000 Intl Units Cap) 1 cap PO Q7D [facility] Last Admin: 04/25/17 22:47 Dose: Not Given Furosemide (Lasix) 40 mg PO DAILY [facility] Last Admin: 04/30/17 10:00 Dose: Not Given Glucagon (Glucagen Diagnostic Kit) 1 mg IM STAT PRN; Protocol PRN Reason: Hypoglycemia Protocol Hydralazine HCl (Apresoline) 25 mg PO BID [facility] Last Admin: 04/30/17 18:34 Dose: Not Given Hydromorphone HCl (Dilaudid) 0.5 mg IVP Q6H PRN PRN Reason: Pain, severe (8-10) Last Admin: 04/30/17 19:07 Dose: 0.5 mg Dextrose/Sodium Chloride (Dextrose 5%/0.45% Ns 1000 Ml) 1,000 mls @ 60 mls/hr IV .[id number] [facility] Last Admin: 04/30/17 12:39 Dose: 60 mls/hr Piperacillin Sod/Tazobactam Sod (Zosyn 2.25 Gm Iv Premix) 2.25 gm in 50 mls @ 200 mls/hr IVPB Q8 [facility] Last Admin: 04/30/17 15:00 Dose: 200 mls/hr Linezolid (Zyvox 600mg/300ml D5w) 600 mg in 300 mls @ 200 mls/hr IVPB Q12H [facility] Last Admin: 04/30/17 12:46 Dose: 200 mls/hr Gentamicin Sulfate/Sodium Chloride (Gentamicin Iv 80 Mg Premix) 80 mg in 100 mls @ 100 mls/hr IVPB MWF [facility] Last Admin: 04/29/17 15:42 Dose: 100 mls/hr Insulin Glargine (Lantus) 15 unit SC [facility] Last Admin: 04/29/17 21:47 Dose: 15 u Insulin Human Regular (Novolin R) 0 unit SC [facility] PRN Reason: Protocol Last Admin: 04/30/17 16:55 Dose: Not Given Latanoprost (Xalatan Opht) 0.02 ml OU HS [facility] Last Admin: 04/29/17 21:31 Dose: 0.02 ml Megestrol Acetate (Megace) 40 mg PO DAILY [facility] Last Admin: 04/30/17 10:00 Dose: Not Given Midodrine (Proamatine) 10 mg PO ONCE PRN PRN Reason: Diastolic blood pressure Last Admin: 04/29/17 09:50 Dose: 10 mg Nystatin (Nystop Topical Powder) 1 gm TOP Q8H [facility] Last Admin: 04/30/17 17:05 Dose: 1 gra Pantoprazole Sodium (Protonix Susp) 40 mg PO DAILY [facility] Last Admin: 04/30/17 10:00 Dose: Not Given Rosuvastatin Calcium (Crestor) 10 mg PO HS [facility] Last Admin: 04/29/17 21:31 Dose: 10 mg Thiamine HCl (Vitamin B1 Inj) 100 mg IV Q8H [facility] Last Admin: 04/30/17 15:01 Dose: 100 mg Timolol Maleate (Timoptic 0.5% Oph Soln) 1 drop OU BID [facility] Last Admin: 04/30/17 18:34 Dose: 1 drop Vitamin B Complex/Vit C/Folic Acid (Nephro-Alonzo) 1 tab PO 0800 [facility] Last Admin: 04/30/17 09:00 Dose: Not Given - Labs Labs: 04/29/17 10:41 04/29/17 10:41 PT 11.7 SECONDS (9.7-12.2) 04/11/17 18:55 INR 1.0 04/11/17 18:55 APTT 31 SECONDS (21-34) 04/23/17 06:26 Assessment and Plan - Assessment and Plan (Free Text) Assessment: ESRD ON HD M W F ANEMIA OF CKD .. H/H STABLE S/P L BKA .. C/O STUMP PAIN MMP P : C/O SUPPORTIVE CARE C/O PRESENT MANAGEMENT REASSURED
[2017-04-30] MEDS: Latanoprost 2.5 ml Opht Soln OU SCH (21:18)
[2017-04-30] MEDS: (Lantus) Insulin Glargine, Recombinant SC SCH (21:45)
[2017-04-30] MEDS ORDERED: Potassium Chloride 20 mEq ER Tab PO ONE (23:31)
[2017-05-01] MEDS: Nystatin 100,000 Units/gm Topical Pow(15 gm) TOP SCH ×3 (00:40→17:59)
[2017-05-01] MEDS: Linezolid 600 mg in D5W 300 ml 600 MG/300 ML BAG IVPB SCH ×2 (00:44→12:53)
[2017-05-01] MEDS: Dextrose 5%/0.45% NS 1,000 ML IV SCH (05:37)
[2017-05-01] MEDS: Thiamine 100 mg/ml Inj IV SCH ×3 (05:37→22:11)
[2017-05-01] MEDS: Piperacill/Tazo 2.25gm in Dex 2.25 GM/50 ML BAG IVPB SCH ×3 (05:38→22:10)
[2017-05-01] MEDS: Collagenase 250 Units/gm Ointment(30 gm) TOP SCH ×2 (05:42→18:02)
[2017-05-01] MEDS: Multivitamin Vitamin B Complex (Nephro-Vite) Tab PO SCH (08:27)
[2017-05-01] MEDS: (Novolin R) Insulin Human Regular 100 units/ml vial SC SCH ×4 (08:27→21:28)
[2017-05-01] MEDS: Gentamicin 80 mg in 0.9% NS 80 MG/100 ML BAG IVPB SCH (09:43)
[2017-05-01 09:53] LABS: BASO # 0.1 K/uL (0.0-0.2); BASO % 0.8 % (0.0-2.0); EOS # 0.1 K/uL (0.0-0.7); EOS % 1.7 % (0.0-4.0); HEMATOCRIT 26.8 % (34.0-47.0); LYMPH % 11.3 % (20.0-40.0); MEAN CORPUSCULAR HEMOGLOBIN 30.3 pg (27.0-31.0); MEAN CORPUSCULAR HGB CONC 32.8 g/dL (33.0-37.0); MEAN PLATELET VOLUME 8.5 fL (7.2-11.7); MONO # 0.4 K/uL (0.0-0.8); MONO % 4.9 % (0.0-10.0); NRBC % 0.1 % (0.0-2.0); RED CELL DISTRIBUTION WIDTH 17.3 % (11.5-14.5); WHITE BLOOD COUNT 8.5 K/uL (4.8-10.8)
[2017-05-01 09:55] LABS: MEAN CELL VOLUME 92.3 fL (81.0-99.0)
[2017-05-01] MEDS: Epoetin Alfa 10,000 unit/ml Dialysis IV SCH (10:36)
[2017-05-01] MEDS: Brimonidine 0.2% Opth Sol (5ml) OU SCH ×3 (10:43→18:03)
[2017-05-01] MEDS: Pantoprazole 40 mg Susp UD PO SCH (10:43)
[2017-05-01 10:46] LABS: ALB/GLOB RATIO 0.8 (1.0-2.1); ALKALINE PHOSPHATASE 203 U/L (38-126); ALT/SGPT 35 U/L (9-52); AST/SGOT 15 U/L (14-36); BILIRUBIN,TOTAL 0.4 mg/dL (0.2-1.3); BLOOD UREA NITROGEN 22 mg/dL (7-17); CALCIUM 6.7 mg/dl (8.6-10.4); CARBON DIOXIDE 28 mmol/L (22-30); CHLORIDE 93 mmol/L (98-107); GFR AFRICAN-AMERICAN 49; GLUCOSE,RANDOM 237 mg/dL (65-105); MAGNESIUM 1.6 mg/dL (1.6-2.3); PHOSPHOROUS 2.2 mg/dL (2.5-4.5); POTASSIUM 3.2 mmol/L (3.6-5.2); SODIUM 126 mmol/L (132-148); TOTAL PROTEIN 4.5 g/dL (6.3-8.3)
[2017-05-01] MEDS: HYDROmorphone 0.5 mg/0.5 ml ISec IVP PRN ×2 (12:56→19:43)
--- NOTE | 2017-05-01 15:35 | CP.PCM.PN ---
<Josefina Allen E - Last Filed: 05/01/17 15:58> Subjective - Date & Time of Evaluation Date of Evaluation: 05/01/17 Time of Evaluation: 07:55 - Subjective Subjective: Medicine Note (PGY-1)-----> Dr. Myrick's service Patient was seen and examined at bedside. As per nursing, there were no acute issues overnight. Patient was very alert this morning and very verbal. Patient expressed that she has pain at the site of her left stump BKA, while I was changing the dressing. Objective - Vital Signs/Intake and Output Vital Signs (last 24 hours): Temp Pulse Resp BP Pulse Ox 97.5 F L 102 H 18 81/44 L 100 05/01/17 12:05 05/01/17 12:05 05/01/17 12:05 05/01/17 12:05 05/01/17 12:05 Intake and Output: 05/01/17 05/01/17 06:59 18:59 Intake Total 480 Balance 480 - Medications Medications: Current Medications Acetaminophen (Tylenol 325mg Tab) 650 mg PO Q6 PRN PRN Reason: Pain, moderate (4-7) Last Admin: 04/26/17 10:36 Dose: 650 mg Apixaban (Eliquis) 5 mg PO BID [facility] Last Admin: 05/01/17 10:43 Dose: Not Given Brimonidine Tartrate (Alphagan 0.2% Opht) 1 ml OU TID [facility] Last Admin: 05/01/17 13:03 Dose: 1 drop Collagenase (Santyl) 0 gm TOP Q12H [facility] Last Admin: 05/01/17 05:42 Dose: 1 applic Dextrose (Dextrose 50%) 0 ml IV STAT PRN; Protocol PRN Reason: Hypoglycemia Protocol Last Admin: 04/28/17 09:46 Dose: 50 ml Epoetin Maxwell (Procrit) 10,000 unit IV MWF [facility] Last Admin: 05/01/17 10:36 Dose: 10,000 unit Ergocalciferol (Drisdol 50,000 Intl Units Cap) 1 cap PO Q7D [facility] Last Admin: 04/25/17 22:47 Dose: Not Given Furosemide (Lasix) 40 mg PO DAILY [facility] Last Admin: 05/01/17 10:43 Dose: Not Given Glucagon (Glucagen Diagnostic Kit) 1 mg IM STAT PRN; Protocol PRN Reason: Hypoglycemia Protocol Hydralazine HCl (Apresoline) 25 mg PO BID [facility] Last Admin: 05/01/17 10:43 Dose: Not Given Hydromorphone HCl (Dilaudid) 0.5 mg IVP Q6H PRN PRN Reason: Pain, severe (8-10) Last Admin: 05/01/17 12:56 Dose: 0.5 mg Dextrose/Sodium Chloride (Dextrose 5%/0.45% Ns 1000 Ml) 1,000 mls @ 60 mls/hr IV .[id number] [facility] Last Admin: 05/01/17 05:37 Dose: Not Given Piperacillin Sod/Tazobactam Sod (Zosyn 2.25 Gm Iv Premix) 2.25 gm in 50 mls @ 200 mls/hr IVPB Q8 [facility] Last Admin: 05/01/17 15:00 Dose: 200 mls/hr Linezolid (Zyvox 600mg/300ml D5w) 600 mg in 300 mls @ 200 mls/hr IVPB Q12H [facility] Last Admin: 05/01/17 12:53 Dose: 200 mls/hr Gentamicin Sulfate/Sodium Chloride (Gentamicin Iv 80 Mg Premix) 80 mg in 100 mls @ 100 mls/hr IVPB MWF [facility] Last Admin: 05/01/17 09:43 Dose: Not Given Insulin Glargine (Lantus) 15 unit SC HS [facility] Last Admin: 04/30/17 21:45 Dose: Not Given Insulin Human Regular (Novolin R) 0 unit SC ACHS [facility] PRN Reason: Protocol Last Admin: 05/01/17 11:35 Dose: Not Given Latanoprost (Xalatan Opht) 0.02 ml OU HS [facility] Last Admin: 04/30/17 21:18 Dose: 0.02 ml Megestrol Acetate (Megace) 40 mg PO DAILY [facility] Last Admin: 05/01/17 10:43 Dose: Not Given Midodrine (Proamatine) 10 mg PO ONCE PRN PRN Reason: Diastolic blood pressure Last Admin: 04/29/17 09:50 Dose: 10 mg Nystatin (Nystop Topical Powder) 1 gm TOP Q8H [facility] Last Admin: 05/01/17 08:27 Dose: Not Given Pantoprazole Sodium (Protonix Susp) 40 mg PO DAILY [facility] Last Admin: 05/01/17 10:43 Dose: Not Given Rosuvastatin Calcium (Crestor) 10 mg PO HS [facility] Last Admin: 04/30/17 21:19 Dose: 10 mg Thiamine HCl (Vitamin B1 Inj) 100 mg IV Q8H [facility] Last Admin: 05/01/17 15:00 Dose: 100 mg Timolol Maleate (Timoptic 0.5% Ophth Soln) 1 drop OU BID [facility] Last Admin: 05/01/17 10:44 Dose: Not Given Vitamin B Complex/Vit C/Folic Acid (Nephro-Alonzo) 1 tab PO 0800 [facility] Last Admin: 05/01/17 08:27 Dose: Not Given - Labs Labs: 05/01/17 09:44 05/01/17 09:44 PT 11.7 SECONDS (9.7-12.2) 04/11/17 18:55 INR 1.0 04/11/17 18:55 APTT 31 SECONDS (21-34) 04/23/17 06:26 - Constitutional Appears: No Acute Distress - Head Exam Head Exam: ATRAUMATIC, NORMAL INSPECTION - Eye Exam Eye Exam: EOMI - ENT Exam ENT Exam: Mucous Membranes Dry - Respiratory Exam Respiratory Exam: NORMAL BREATHING PATTERN Additional comments: Examination limited due to patient's condition Lungs are clear anteriorly and b/l posterior upper lobe ON 2L NC - Cardiovascular Exam Cardiovascular Exam: +S2 - GI/Abdominal Exam GI & Abdominal Exam: Soft, Normal Bowel Sounds. absent: Guarding, Rigid, Tenderness - Extremities Exam Additional comments: Bilateral UE edema (R>L) Left BKA, Dressing changed with island dressing, 4 x 4 and cleaned, clean, dry and intact Right +2 pitting edema - Neurological Exam Neurological Exam: Alert, Awake - Psychiatric Exam Psychiatric exam: Flat Affect - Skin Skin Exam: Normal Color Assessment and Plan (1) Sepsis Assessment & Plan: Infectious Disease, Dr. Wellington on board----> help appreciated * As per ID, antibiotics should estrella stopped after two weeks Leukocytosis with no bandemia * WBC has normalized On admission: WBC: 21.3, HR: 107 Sacral culture (04/11/17) : Gram negative kendy, proteus mirabilis Blood culture (04/11/17): Gram positive cocci, Staphyl aureus and coag-negative staph S/P Left BKA (04/11/17): Gram negative kendy, proteus mirabilis, klebsiella pneumonia and vancomycin resistance E.faecium Medications/management: * Gentamicin 80mg IVPB HD * Zosyn 2.25gm IVPB Q8H * Vancomycin 1gm IVPB on HD---> Discontinued * Linezolid 600mg IVPB Q12H ---> Started on 04/14 Status: Acute (2) Pulmonary embolism Assessment & Plan: Chest CT angio: Filling defects are noted at both upper lobes pulmonary arteries suggestive of pulmonary embolus. Large bilateral pleural effusion. Mild cardiomegaly. [id number] pericardial effusion. [id number] anasarca. Lower lobe atelectasis due to pleural effusion. Medications: Discontinued Heparin drip Started on eliquis 5mg PO daily (04/30/17) after completion of eliquis 10mg PO daily for 7 days Status: Acute (3) Serum albumin decreased Assessment & Plan: Possibly secondary to decrease PO intake and appetite Medication/Management: * Encourage PO intake * Supplemental drink: Glucerna TID * Continue to monitor with am labs * Megace 40mg PO daily (Appetite stimulant) * Started on D5w LR @ 60mls/hr due hypoglycemic episode. Disposition: Patient's continues to refuse PEG tube placement for appropriate nutrition. Status: Acute (4) End stage renal disease on dialysis Assessment & Plan: Tile Decorator, Dr. Ambrose---> Help appreciated * Management as per recommendation Management/Medications: On HD (TTS) ---> MWF ( for this admission) * Via Left Arm shunt * PICC line inserted by IR 03/23/17 - DVT in R upper extremity Ergocalciferol 1 cap PO Q7D Procrit 10,000 unit IV MWF Ferric sodium gluconate 125 mg MWF Nephrovite Eliquis 5mg PO BID; after the completion of 10mg PO bid for 7 days for R upper extremity DVT Status: Chronic (5) Sacral decubitus ulcer, stage III Assessment & Plan: General Surgery, Dr. Broussard consulted * No surgical intervention at this time * Nicolas for sacral decub ID, Dr. Wellington consulted * As per ID, antibiotics should be stopped after two weeks Wound care consult Lab: Gram Negative kendy, proteus mirabilis Medication: * Gentamicin 80mg IVPB HD * Zosyn 2.25gm IVPB Q8H * Linezolid 600mg IVPB Q12H (started 04/14/17) Status: Acute (6) S/P BKA (below knee amputation) Assessment & Plan: General Surgery, Dr. Broussard---> Help appreciated * Management as per recommendation * BKA (03/30/17) * Bedside debridement for left BKA stump (04/25/17) by Dr. Broussard ID, Dr. Wellington----> Help appreciated * Antibiotics should be stopped after two weeks. Wound care consult Daily dressing changes with nicolas Lab: Wound culture: Gram negative kendy; proteus mirabilis, klebsiella pneumonia and vancomycin resistance E.faecium Medications: * Gentamicin 80mg IVPB HD * Zosyn 2.25gm IVPB Q8H * Linezolid 600mg IVPB Q12H Status: Acute (7) Anemia, chronic disease Assessment & Plan: H/H Stable * transfused 2 units of PRBC on HD (04/15/17) * Continue to monitor Medication: * Procrit 10,000 unit IV TTS ( on HD) on this admission, M,W,F Status: Chronic (8) Glaucoma Assessment & Plan: Medications: * Timolol 0.5% OU BID * Latanoprost 0.02 ml OU HS * Brimonidine 1ml OU TID Status: Acute (9) Diabetes mellitus Assessment & Plan: HgbA1C (02/18/17): 8.7 Management/Medication: * Accuchecks * ISS medium dose * Hypoglycemia protocol * D5W at 60mls/hr due to hypoglycemic episodes and decrease PO intake Status: Acute (10) History of CHF (congestive heart failure) Assessment & Plan: Echo (03/09/17): EF=61%, please refer to the full report for complete impression Medication: * Lasix 40mg PO daily Status: Acute (11) Hypertension Assessment & Plan: Medication: * Norvasc 5mg PO daily (Held due to chronic right peripheral edema) * Hydralazine 25mg PO BID * Lisinopril 20mg PO daily Status: Chronic (12) History of hyperlipidemia Assessment & Plan: Crestor 10mg PO HS Status: Acute (13) Prophylactic measure Assessment & Plan: GI: Protonix 40mg PO daily DVT: Heparin 5,000 units SC Q12H PT and OT Disposition: Possible LTAC placement or higher level of subacute care. At this moment, case briefer and social sciences department chair are working on possible placement to LTAC and [facility]. At this moment, patient has been denies at LTAC, however case briefer/social sciences department chair and Dr. Myrick are working for an alternative placement. All management and plan as per Dr. Myrick Status: Acute <Benson Myrick Jr. - Last Filed: 05/17/17 13:00> Objective - Vital Signs/Intake and Output Vital Signs (last 24 hours): Temp Pulse Resp BP Pulse Ox 99.5 F 134 H 16 135/48 L 100 05/17/17 08:00 05/17/17 11:00 05/17/17 11:00 05/17/17 11:00 05/17/17 11:00 Intake and Output: 05/17/17 05/17/17 06:59 18:59 Intake Total 1285.3 507.5 Output Total 100 Balance 1185.3 507.5 - Medications Medications: Current Medications Acetaminophen (Tylenol 650mg/20.3ml Solution Ud) 650 mg PO Q6 PRN PRN Reason: Fever >100.4 F Last Admin: 05/16/17 12:23 Dose: 650 mg Albumin Human (Albumin Human 5% (12.5 Gm/250 Ml)) 12.5 gm IV MWF PRN PRN Reason: hypotension Last Admin: 05/15/17 11:45 Dose: 12.5 gm Apixaban (Eliquis) 5 mg PO BID [facility] Last Admin: 05/15/17 19:20 Dose: 5 mg Brimonidine Tartrate (Alphagan 0.2% Opht) 1 ml OU TID [facility] Last Admin: 05/17/17 09:54 Dose: 1 applic Collagenase (Santyl) 0 gm TOP DAILY [facility] Last Admin: 05/17/17 09:54 Dose: 1 applic Epoetin Maxwell (Procrit) 10,000 unit IV MWF [facility] Last Admin: 05/15/17 11:11 Dose: 10,000 unit Ergocalciferol (Drisdol 50,000 Intl Units Cap) 1 cap PO Q7D [facility] Last Admin: 05/16/17 22:02 Dose: 1 cap Hydrocortisone Sodium Succinate (Solu-Cortef) 50 mg IV Q8H [facility] Linezolid (Zyvox 600mg/300ml D5w) 600 mg in 300 mls @ 200 mls/hr IVPB Q12 [facility] Last Admin: 05/17/17 09:51 Dose: 200 mls/hr Propofol (Diprivan) 1,000 mg in 100 mls @ 1.762 mls/hr IV .Q24H PRN; Protocol; 5 MCG/KG/MIN PRN Reason: TITRATE PER MD ORDER Last Titration: 05/13/17 20:00 Dose: 10 mcg/kg/min, 3.524 mls/hr Micafungin Sodium 100 mg/ (Sodium Chloride) 100 mls @ 100 mls/hr IV Q24H [facility] Last Admin: 05/16/17 19:44 Dose: 100 mls/hr Norepinephrine Bitartrate 8 mg (/ Sodium Chloride) 250 mls @ 7.5 mls/hr IV .Q24H PRN; Protocol; 4 MCG/MIN PRN Reason: TITRATE PER MD ORDER Last Admin: 05/17/17 07:47 Dose: 20 mcg/min, 37.5 mls/hr Gentamicin Sulfate/Sodium Chloride (Gentamicin Iv 80 Mg Premix) 80 mg in 100 mls @ 100 mls/hr IVPB Q24H [facility] Insulin Glargine (Lantus) 10 unit SC AMHS [facility] Last Admin: 05/17/17 09:52 Dose: Not Given Insulin Human Regular (Novolin R) 0 unit SC Q4 [facility] PRN Reason: Protocol Last Admin: 05/17/17 12:12 Dose: Not Given Latanoprost (Xalatan Opht) 0.02 ml OU HS [facility] Last Admin: 05/16/17 21:22 Dose: 0.02 ml Midodrine (Proamatine) 10 mg PO ONCE PRN PRN Reason: Diastolic blood pressure Last Admin: 05/09/17 11:02 Dose: 10 mg Nystatin (Nystop Topical Powder) 1 gm TOP Q8H [facility] Last Admin: 05/17/17 07:53 Dose: 1 applic Pantoprazole Sodium (Protonix Inj) 40 mg IVP DAILY [facility] Last Admin: 05/17/17 09:50 Dose: 40 mg Potassium Phos/Sodium Phos (Neutra-Phos) 1 pkt PO BIDPC [facility] Last Admin: 05/17/17 09:55 Dose: 1 pkt Rosuvastatin Calcium (Crestor) 10 mg PO HS [facility] Last Admin: 05/16/17 21:11 Dose: 10 mg Thiamine HCl (Vitamin B1 Inj) 100 mg IV Q8H [facility] Last Admin: 05/17/17 05:30 Dose: 100 mg Timolol Maleate (Timoptic 0.5% Ophth Soln) 1 drop OU BID [facility] Last Admin: 05/17/17 09:54 Dose: 1 drop Vitamin B Complex/Vit C/Folic Acid (Nephro-Alonzo) 1 tab PO 0800 [facility] Last Admin: 05/17/17 07:53 Dose: 1 tab - Labs Labs: 05/17/17 06:50 05/17/17 06:51 PT 14.8 SECONDS (9.7-12.2) H 05/16/17 06:58 INR 1.3 05/16/17 06:58 APTT 30 SECONDS (21-34) 05/16/17 06:58 Attending/Attestation - Attestation I have personally seen and examined this patient.: Yes I have fully participated in the care of the patient.: Yes I have reviewed all pertinent clinical information, including history, physical exam and plan: Yes Notes (Text): 05/17/17 12:59 Agree with resident note and plan of care
--- NOTE | 2017-05-01 17:58 | CP.PCM.PN ---
Subjective - Date & Time of Evaluation Date of Evaluation: 05/01/17 Time of Evaluation: 14:00 - Subjective Subjective: SEEN ON RENAL F/U .. ON THE BED SIDE EDMA IS MUCH LESS .. WE ARE REMOVING APPROXIMATELY 3 L ON EACH HD ALERT WITH SLOW MENTATION .. NAD C/O PAIN ON L STUMP AND LEG UPON PALPATION Objective - Vital Signs/Intake and Output Vital Signs (last 24 hours): Temp Pulse Resp BP Pulse Ox 97.5 F L 102 H 18 81/44 L 100 05/01/17 12:05 05/01/17 12:05 05/01/17 12:05 05/01/17 12:05 05/01/17 12:05 Intake and Output: 05/01/17 05/01/17 06:59 18:59 Intake Total 480 750 Balance 480 750 - Medications Medications: Current Medications Acetaminophen (Tylenol 325mg Tab) 650 mg PO Q6 PRN PRN Reason: Pain, moderate (4-7) Last Admin: 04/26/17 10:36 Dose: 650 mg Apixaban (Eliquis) 5 mg PO BID [facility] Last Admin: 05/01/17 10:43 Dose: Not Given Brimonidine Tartrate (Alphagan 0.2% Opht) 1 ml OU TID [facility] Last Admin: 05/01/17 13:03 Dose: 1 drop Collagenase (Santyl) 0 gm TOP Q12H [facility] Last Admin: 05/01/17 05:42 Dose: 1 applic Dextrose (Dextrose 50%) 0 ml IV STAT PRN; Protocol PRN Reason: Hypoglycemia Protocol Last Admin: 04/28/17 09:46 Dose: 50 ml Epoetin Maxwell (Procrit) 10,000 unit IV MWF [facility] Last Admin: 05/01/17 10:36 Dose: 10,000 unit Ergocalciferol (Drisdol 50,000 Intl Units Cap) 1 cap PO Q7D [facility] Last Admin: 04/25/17 22:47 Dose: Not Given Furosemide (Lasix) 40 mg PO DAILY [facility] Last Admin: 05/01/17 10:43 Dose: Not Given Glucagon (Glucagen Diagnostic Kit) 1 mg IM STAT PRN; Protocol PRN Reason: Hypoglycemia Protocol Hydralazine HCl (Apresoline) 25 mg PO BID [facility] Last Admin: 05/01/17 10:43 Dose: Not Given Hydromorphone HCl (Dilaudid) 0.5 mg IVP Q6H PRN PRN Reason: Pain, severe (8-10) Last Admin: 05/01/17 12:56 Dose: 0.5 mg Dextrose/Sodium Chloride (Dextrose 5%/0.45% Ns 1000 Ml) 1,000 mls @ 60 mls/hr IV .[id number] [facility] Last Admin: 05/01/17 05:37 Dose: Not Given Piperacillin Sod/Tazobactam Sod (Zosyn 2.25 Gm Iv Premix) 2.25 gm in 50 mls @ 200 mls/hr IVPB Q8 [facility] Last Admin: 05/01/17 15:00 Dose: 200 mls/hr Linezolid (Zyvox 600mg/300ml D5w) 600 mg in 300 mls @ 200 mls/hr IVPB Q12H [facility] Last Admin: 05/01/17 12:53 Dose: 200 mls/hr Gentamicin Sulfate/Sodium Chloride (Gentamicin Iv 80 Mg Premix) 80 mg in 100 mls @ 100 mls/hr IVPB MWF [facility] Last Admin: 05/01/17 09:43 Dose: Not Given Insulin Glargine (Lantus) 15 unit SC [facility] Last Admin: 04/30/17 21:45 Dose: Not Given Insulin Human Regular (Novolin R) 0 unit SC [facility] PRN Reason: Protocol Last Admin: 05/01/17 11:35 Dose: Not Given Latanoprost (Xalatan Opht) 0.02 ml OU [facility] Last Admin: 04/30/17 21:18 Dose: 0.02 ml Megestrol Acetate (Megace) 40 mg PO DAILY [facility] Last Admin: 05/01/17 10:43 Dose: Not Given Midodrine (Proamatine) 10 mg PO ONCE PRN PRN Reason: Diastolic blood pressure Last Admin: 04/29/17 09:50 Dose: 10 mg Nystatin (Nystop Topical Powder) 1 gm TOP Q8H [facility] Last Admin: 05/01/17 08:27 Dose: Not Given Pantoprazole Sodium (Protonix Susp) 40 mg PO DAILY [facility] Last Admin: 05/01/17 10:43 Dose: Not Given Rosuvastatin Calcium (Crestor) 10 mg PO [facility] Last Admin: 04/30/17 21:19 Dose: 10 mg Thiamine HCl (Vitamin B1 Inj) 100 mg IV Q8H [facility] Last Admin: 05/01/17 15:00 Dose: 100 mg Timolol Maleate (Timoptic 0.5% Oph Soln) 1 drop OU BID [facility] Last Admin: 05/01/17 10:44 Dose: Not Given Vitamin B Complex/Vit C/Folic Acid (Nephro-Alonzo) 1 tab PO 0800 [facility] Last Admin: 05/01/17 08:27 Dose: Not Given - Labs Labs: 05/01/17 09:44 05/01/17 09:44 PT 11.7 SECONDS (9.7-12.2) 04/11/17 18:55 INR 1.0 04/11/17 18:55 APTT 31 SECONDS (21-34) 04/23/17 06:26 Assessment and Plan - Assessment and Plan (Free Text) Assessment: ESRD ON HD M W F .. MAINLY FOR UF ANEMIA OF CKD AND OTHER ETIOLOGIES ANASARCA MUCH BETTER S/P L BKA MMP P : C/O SUPPORTIVE CARE C/O PRESENT MANAGEMENT CASE D/W .. REASSURED
--- NOTE | 2017-05-01 18:55 | CP.PCM.PN ---
Subjective - Date & Time of Evaluation Date of Evaluation: 05/01/17 Time of Evaluation: 09:00 - Subjective Subjective: slow progress iv rx reordered cont iv rx Objective - Vital Signs/Intake and Output Vital Signs (last 24 hours): Temp Pulse Resp BP Pulse Ox 97.5 F L 102 H 18 81/44 L 100 05/01/17 12:05 05/01/17 12:05 05/01/17 12:05 05/01/17 12:05 05/01/17 12:05 Intake and Output: 05/01/17 05/01/17 06:59 18:59 Intake Total 480 750 Balance 480 750 - Medications Medications: Current Medications Acetaminophen (Tylenol 325mg Tab) 650 mg PO Q6 PRN PRN Reason: Pain, moderate (4-7) Last Admin: 05/01/17 18:01 Dose: 650 mg Apixaban (Eliquis) 5 mg PO BID [facility] Last Admin: 05/01/17 18:01 Dose: 5 mg Brimonidine Tartrate (Alphagan 0.2% Opht) 1 ml OU TID [facility] Last Admin: 05/01/17 18:03 Dose: 1 drop Collagenase (Santyl) 0 gm TOP Q12H [facility] Last Admin: 05/01/17 18:02 Dose: 1 applic Dextrose (Dextrose 50%) 0 ml IV STAT PRN; Protocol PRN Reason: Hypoglycemia Protocol Last Admin: 04/28/17 09:46 Dose: 50 ml Epoetin Maxwell (Procrit) 10,000 unit IV MWF [facility] Last Admin: 05/01/17 10:36 Dose: 10,000 unit Ergocalciferol (Drisdol 50,000 Intl Units Cap) 1 cap PO Q7D [facility] Last Admin: 04/25/17 22:47 Dose: Not Given Furosemide (Lasix) 40 mg PO DAILY [facility] Last Admin: 05/01/17 10:43 Dose: Not Given Glucagon (Glucagen Diagnostic Kit) 1 mg IM STAT PRN; Protocol PRN Reason: Hypoglycemia Protocol Hydralazine HCl (Apresoline) 25 mg PO BID [facility] Last Admin: 05/01/17 18:03 Dose: Not Given Hydromorphone HCl (Dilaudid) 0.5 mg IVP Q6H PRN PRN Reason: Pain, severe (8-10) Last Admin: 05/01/17 12:56 Dose: 0.5 mg Dextrose/Sodium Chloride (Dextrose 5%/0.45% Ns 1000 Ml) 1,000 mls @ 60 mls/hr IV .[id number] [facility] Last Admin: 05/01/17 05:37 Dose: Not Given Piperacillin Sod/Tazobactam Sod (Zosyn 2.25 Gm Iv Premix) 2.25 gm in 50 mls @ 200 mls/hr IVPB Q8 [facility] Last Admin: 05/01/17 15:00 Dose: 200 mls/hr Linezolid (Zyvox 600mg/300ml D5w) 600 mg in 300 mls @ 200 mls/hr IVPB Q12H [facility] Last Admin: 05/01/17 12:53 Dose: 200 mls/hr Gentamicin Sulfate/Sodium Chloride (Gentamicin Iv 80 Mg Premix) 80 mg in 100 mls @ 100 mls/hr IVPB MWF [facility] Last Admin: 05/01/17 09:43 Dose: Not Given Insulin Glargine (Lantus) 15 unit SC [facility] Last Admin: 04/30/17 21:45 Dose: Not Given Insulin Human Regular (Novolin R) 0 unit SC [facility] PRN Reason: Protocol Last Admin: 05/01/17 17:59 Dose: Not Given Latanoprost (Xalatan Opht) 0.02 ml OU [facility] Last Admin: 04/30/17 21:18 Dose: 0.02 ml Megestrol Acetate (Megace) 40 mg PO DAILY [facility] Last Admin: 05/01/17 10:43 Dose: Not Given Midodrine (Proamatine) 10 mg PO ONCE PRN PRN Reason: Diastolic blood pressure Last Admin: 04/29/17 09:50 Dose: 10 mg Nystatin (Nystop Topical Powder) 1 gm TOP Q8H [facility] Last Admin: 05/01/17 17:59 Dose: 1 gra Pantoprazole Sodium (Protonix Susp) 40 mg PO DAILY [facility] Last Admin: 05/01/17 10:43 Dose: Not Given Rosuvastatin Calcium (Crestor) 10 mg PO [facility] Last Admin: 04/30/17 21:19 Dose: 10 mg Thiamine HCl (Vitamin B1 Inj) 100 mg IV Q8H [facility] Last Admin: 05/01/17 15:00 Dose: 100 mg Timolol Maleate (Timoptic 0.5% Ophth Soln) 1 drop OU BID [facility] Last Admin: 05/01/17 18:03 Dose: 1 drop Vitamin B Complex/Vit C/Folic Acid (Nephro-Alonzo) 1 tab PO 0800 [facility] Last Admin: 05/01/17 08:27 Dose: Not Given - Labs Labs: 05/01/17 09:44 05/01/17 09:44 PT 11.7 SECONDS (9.7-12.2) 04/11/17 18:55 INR 1.0 04/11/17 18:55 APTT 31 SECONDS (21-34) 04/23/17 06:26 - Constitutional Appears: Non-toxic - Head Exam Head Exam: NORMOCEPHALIC - Eye Exam Eye Exam: PERRL - ENT Exam ENT Exam: Mucous Membranes Dry - Neck Exam Neck Exam: absent: Lymphadenopathy - Respiratory Exam Respiratory Exam: Decreased Breath Sounds - Cardiovascular Exam Cardiovascular Exam: REGULAR RHYTHM - GI/Abdominal Exam GI & Abdominal Exam: Distended - Rectal Exam Rectal Exam: Deferred Assessment and Plan (1) Elevated WBC count Status: Acute (2) S/P BKA (below knee amputation) Status: Acute (3) Sacral decubitus ulcer, stage III Status: Acute (4) Sepsis Status: Acute
[2017-05-01] MEDS: (Lantus) Insulin Glargine, Recombinant SC SCH (22:11)
[2017-05-01] MEDS: Latanoprost 2.5 ml Opht Soln OU SCH (22:12)
[2017-05-02] MEDS: Linezolid 600 mg in D5W 300 ml 600 MG/300 ML BAG IVPB SCH ×2 (00:14→12:30)
[2017-05-02] MEDS: Nystatin 100,000 Units/gm Topical Pow(15 gm) TOP SCH ×3 (01:33→17:00)
[2017-05-02] MEDS: HYDROmorphone 0.5 mg/0.5 ml ISec IVP PRN ×2 (03:21→17:39)
[2017-05-02] MEDS: Collagenase 250 Units/gm Ointment(30 gm) TOP SCH ×2 (05:40→17:40)
[2017-05-02] MEDS: Piperacill/Tazo 2.25gm in Dex 2.25 GM/50 ML BAG IVPB SCH ×2 (05:40→14:28)
[2017-05-02] MEDS: Thiamine 100 mg/ml Inj IV SCH ×3 (05:43→22:39)
[2017-05-02] MEDS: (Novolin R) Insulin Human Regular 100 units/ml vial SC SCH ×3 (08:09→22:07)
[2017-05-02] MEDS: Multivitamin Vitamin B Complex (Nephro-Vite) Tab PO SCH (08:09)
[2017-05-02] MEDS ORDERED: Dextrose 50% VIAL Inj (50 ml) IV ONE (09:49)
[2017-05-02] MEDS ORDERED: Dextrose 50% SYRINGE Inj (50 ml) IV STA (09:57)
[2017-05-02] MEDS ORDERED: Dextrose 5%/0.9% NS 1,000 ML IV ONE (10:03)
[2017-05-02] MEDS: Brimonidine 0.2% Opth Sol (5ml) OU SCH ×3 (10:44→17:55)
[2017-05-02] MEDS: Pantoprazole 40 mg Susp UD PO SCH (10:46)
--- NOTE | 2017-05-02 12:36 | CP.PCM.PN ---
<Poonam Rosenbaum H - Last Filed: 05/02/17 12:33> Subjective - Date & Time of Evaluation Date of Evaluation: 05/02/17 Time of Evaluation: 08:30 - Subjective Subjective: Medicine Note (PGY-3)-----> Dr. Myrick's service Patient was seen and examined at bedside. As per nursing, patient had low blood sugar <20. D50 was given. blood sugar remained low. another D50 was given and her sugar came up to 127. Patient was sleeping when I saw her. Patient woke up to say she wants to sleep. Patient not answering ROS. Objective - Vital Signs/Intake and Output Vital Signs (last 24 hours): Temp Pulse Resp BP Pulse Ox 98 F 90 18 138/75 99 05/02/17 08:11 05/02/17 08:11 05/02/17 08:11 05/02/17 08:11 05/02/17 08:11 Intake and Output: 05/02/17 05/02/17 06:59 18:59 Intake Total 300 480 Balance 300 480 - Medications Medications: Current Medications Acetaminophen (Tylenol 325mg Tab) 650 mg PO Q6 PRN PRN Reason: Pain, moderate (4-7) Last Admin: 05/01/17 18:01 Dose: 650 mg Apixaban (Eliquis) 5 mg PO BID [facility] Last Admin: 05/02/17 10:45 Dose: Not Given Brimonidine Tartrate (Alphagan 0.2% Opht) 1 ml OU TID [facility] Last Admin: 05/02/17 10:44 Dose: Not Given Collagenase (Santyl) 0 gm TOP Q12H [facility] Last Admin: 05/02/17 05:40 Dose: 1 applic Dextrose (Dextrose 50%) 0 ml IV STAT PRN; Protocol PRN Reason: Hypoglycemia Protocol Last Admin: 04/28/17 09:46 Dose: 50 ml Epoetin Maxwell (Procrit) 10,000 unit IV MWF [facility] Last Admin: 05/01/17 10:36 Dose: 10,000 unit Ergocalciferol (Drisdol 50,000 Intl Units Cap) 1 cap PO Q7D [facility] Last Admin: 04/25/17 22:47 Dose: Not Given Furosemide (Lasix) 40 mg PO DAILY [facility] Last Admin: 05/02/17 10:45 Dose: Not Given Glucagon (Glucagen Diagnostic Kit) 1 mg IM STAT PRN; Protocol PRN Reason: Hypoglycemia Protocol Hydralazine HCl (Apresoline) 25 mg PO BID [facility] Last Admin: 05/02/17 10:44 Dose: Not Given Hydromorphone HCl (Dilaudid) 0.5 mg IVP Q6H PRN PRN Reason: Pain, severe (8-10) Last Admin: 05/02/17 03:21 Dose: 0.5 mg Dextrose/Sodium Chloride (Dextrose 5%/0.45% Ns 1000 Ml) 1,000 mls @ 60 mls/hr IV .[id number] [facility] Last Admin: 05/01/17 05:37 Dose: Not Given Piperacillin Sod/Tazobactam Sod (Zosyn 2.25 Gm Iv Premix) 2.25 gm in 50 mls @ 200 mls/hr IVPB Q8 [facility] Last Admin: 05/02/17 05:40 Dose: 200 mls/hr Linezolid (Zyvox 600mg/300ml D5w) 600 mg in 300 mls @ 200 mls/hr IVPB Q12H [facility] Last Admin: 05/02/17 12:30 Dose: 200 mls/hr Gentamicin Sulfate/Sodium Chloride (Gentamicin Iv 80 Mg Premix) 80 mg in 100 mls @ 100 mls/hr IVPB MWF [facility] Last Admin: 05/01/17 09:43 Dose: Not Given Dextrose/Sodium Chloride (Dextrose 5%/0.9% Ns 1000 Ml) 1,000 mls @ 60 mls/hr IV .[id number] ONE Stop: 05/03/17 02:42 Insulin Glargine (Lantus) 15 unit SC [facility] Last Admin: 05/01/17 22:11 Dose: 15 u Insulin Human Regular (Novolin R) 0 unit SC ACHS [facility] PRN Reason: Protocol Last Admin: 05/02/17 08:09 Dose: Not Given Latanoprost (Xalatan Opht) 0.02 ml OU HS [facility] Last Admin: 05/01/17 22:12 Dose: 0.02 ml Megestrol Acetate (Megace) 40 mg PO DAILY [facility] Last Admin: 05/02/17 10:45 Dose: Not Given Midodrine (Proamatine) 10 mg PO ONCE PRN PRN Reason: Diastolic blood pressure Last Admin: 04/29/17 09:50 Dose: 10 mg Nystatin (Nystop Topical Powder) 1 gm TOP Q8H [facility] Last Admin: 05/02/17 08:09 Dose: Not Given Pantoprazole Sodium (Protonix Susp) 40 mg PO DAILY [facility] Last Admin: 05/02/17 10:46 Dose: Not Given Rosuvastatin Calcium (Crestor) 10 mg PO HS [facility] Last Admin: 05/01/17 22:11 Dose: 10 mg Thiamine HCl (Vitamin B1 Inj) 100 mg IV Q8H [facility] Last Admin: 05/02/17 05:43 Dose: 100 mg Timolol Maleate (Timoptic 0.5% Ophth Soln) 1 drop OU BID [facility] Last Admin: 05/02/17 10:46 Dose: Not Given Vitamin B Complex/Vit C/Folic Acid (Nephro-Alonzo) 1 tab PO 0800 [facility] Last Admin: 05/02/17 08:09 Dose: Not Given - Labs Labs: 05/01/17 09:44 05/01/17 09:44 PT 11.7 SECONDS (9.7-12.2) 04/11/17 18:55 INR 1.0 04/11/17 18:55 APTT 31 SECONDS (21-34) 04/23/17 06:26 - Constitutional Appears: Non-toxic, No Acute Distress, Chronically Ill - Head Exam Head Exam: NORMAL INSPECTION - Eye Exam Eye Exam: EOMI - Respiratory Exam Respiratory Exam: Rales, NORMAL BREATHING PATTERN. absent: Rhonchi, Wheezes - Cardiovascular Exam Cardiovascular Exam: Gallop, REGULAR RHYTHM, +S1, +S2. absent: Rubs, Murmur - GI/Abdominal Exam GI & Abdominal Exam: Soft, Normal Bowel Sounds. absent: Tenderness - Extremities Exam Extremities Exam: Pedal Edema Additional comments: all extremities edematous s/p left BKA - Neurological Exam Neurological Exam: Alert, Awake, Oriented x3 - Psychiatric Exam Psychiatric exam: Normal Affect, Normal Mood - Skin Skin Exam: Normal Color, Warm Assessment and Plan - Assessment and Plan (Free Text) Assessment: (1) Sepsis Assessment & Plan: Infectious Disease, Dr. Wellington on board----> help appreciated * As per ID, antibiotics should be stopped after two weeks Leukocytosis with no bandemia * WBC has normalized On admission: WBC: 21.3, HR: 107 Sacral culture (04/11/17) : Gram negative kendy, proteus mirabilis Blood culture (04/11/17): Gram positive cocci, Staphyl aureus and coag-negative staph S/P Left BKA culture (04/11/17): Gram negative kendy, proteus mirabilis, klebsiella pneumonia and vancomycin resistance E.faecium Medications/management: * Gentamicin 80mg IVPB HD (started 04/22/17) * Zosyn 2.25gm IVPB Q8H (started 04/13/17) * Vancomycin 1gm IVPB on HD---> Discontinued * Linezolid 600mg IVPB Q12H ---> Started on 04/14 Status: Acute (2) Pulmonary embolism Assessment & Plan: Chest CT angio: Filling defects are noted at both upper lobes pulmonary arteries suggestive of pulmonary embolus. Large bilateral pleural effusion. Mild cardiomegaly. [id number] pericardial effusion. [id number] anasarca. Lower lobe atelectasis due to pleural effusion. Medications: Discontinued Heparin drip Started on eliquis 5mg PO daily (04/30/17) after completion of eliquis 10mg PO daily for 7 days Status: Acute (3) Serum albumin decreased Assessment & Plan: Possibly secondary to decrease PO intake and appetite Medication/Management: * Encourage PO intake * Supplemental drink: Glucerna TID * Continue to monitor with am labs * Megace 40mg PO daily (Appetite stimulant) * Started on D5w LR @ 60mls/hr due hypoglycemic episode. Disposition: Patient's continues to refuse PEG tube placement for appropriate nutrition. Status: Acute (4) End stage renal disease on dialysis Assessment & Plan: Deli Department Manager, Dr. Ambrose---> Help appreciated * Management as per recommendation Management/Medications: On HD (TTS) ---> MWF ( for this admission) * Via Left Arm shunt * PICC line inserted by IR 03/23/17 - DVT in R upper extremity Ergocalciferol 1 cap PO Q7D Procrit 10,000 unit IV MWF Ferric sodium gluconate 125 mg MWF Nephrovite Eliquis 5mg PO BID; after the completion of 10mg PO bid for 7 days for R upper extremity DVT Status: Chronic (5) Sacral decubitus ulcer, stage III Assessment & Plan: General Surgery, Dr. Broussard consulted * No surgical intervention at this time * Santyl for sacral decub ID, Dr. Wellington consulted * As per ID, antibiotics should be stopped after two weeks Wound care consult Lab: Gram Negative kendy, proteus mirabilis Medication: * Gentamicin 80mg IVPB HD * Zosyn 2.25gm IVPB Q8H * Linezolid 600mg IVPB Q12H (started 04/14/17) Status: Acute (6) S/P BKA (below knee amputation) Assessment & Plan: General Surgery, Dr. Broussard---> Help appreciated * Management as per recommendation * BKA (03/30/17) * Bedside debridement for left BKA stump (04/25/17) by Dr. Broussard ID, Dr. Wellington----> Help appreciated * Antibiotics should be stopped after two weeks. Wound care consult Daily dressing changes with santyl Lab: Wound culture: Gram negative kendy; proteus mirabilis, klebsiella pneumonia and vancomycin resistance E.faecium Medications: * Gentamicin 80mg IVPB HD * Zosyn 2.25gm IVPB Q8H * Linezolid 600mg IVPB Q12H Status: Acute (7) Anemia, chronic disease Assessment & Plan: H/H Stable * transfused 2 units of PRBC on HD (04/15/17) * Continue to monitor Medication: * Procrit 10,000 unit IV TTS ( on HD) on this admission, M,W,F Status: Chronic (8) Glaucoma Assessment & Plan: Medications: * Timolol 0.5% OU BID * Latanoprost 0.02 ml OU HS * Brimonidine 1ml OU TID Status: Acute (9) Diabetes mellitus Assessment & Plan: HgbA1C (02/18/17): 8.7 Management/Medication: * Accuchecks * ISS medium dose * Hypoglycemia protocol * D5W at 60mls/hr due to hypoglycemic episodes and decreased PO intake Status: Acute (10) History of CHF (congestive heart failure) Assessment & Plan: Echo (03/09/17): EF=61%, please refer to the full report for complete impression Medication: * Lasix 40mg PO daily Status: Acute (11) Hypertension Assessment & Plan: Medication: * Norvasc 5mg PO daily (Held due to chronic right peripheral edema) * Hydralazine 25mg PO BID * Lisinopril 20mg PO daily Status: Chronic (12) History of hyperlipidemia Assessment & Plan: Crestor 10mg PO HS Status: Acute (13) Prophylactic measure Assessment & Plan: GI: Protonix 40mg PO daily DVT: Heparin 5,000 units SC Q12H PT and OT Disposition: Possible LTAC placement or higher level of subacute care. At this moment, rn field case manager and social worker delinquency prevention are working on possible placement to LTAC and [facility] At this moment, patient has been denies at LTAC, however rn field case manager/social worker delinquency prevention and Dr. Myrick are working for an alternative placement. All management and plan as per Dr. Myrick Status: Acute <Benson Myrick Jr. - Last Filed: 05/17/17 13:01> Objective - Vital Signs/Intake and Output Vital Signs (last 24 hours): Temp Pulse Resp BP Pulse Ox 99.5 F 134 H 16 135/48 L 100 05/17/17 08:00 05/17/17 11:00 05/17/17 11:00 05/17/17 11:00 05/17/17 11:00 Intake and Output: 05/17/17 05/17/17 06:59 18:59 Intake Total 1285.3 507.5 Output Total 100 Balance 1185.3 507.5 - Medications Medications: Current Medications Acetaminophen (Tylenol 650mg/20.3ml Solution Ud) 650 mg PO Q6 PRN PRN Reason: Fever >100.4 F Last Admin: 05/16/17 12:23 Dose: 650 mg Albumin Human (Albumin Human 5% (12.5 Gm/250 Ml)) 12.5 gm IV MWF PRN PRN Reason: hypotension Last Admin: 05/15/17 11:45 Dose: 12.5 gm Apixaban (Eliquis) 5 mg PO BID [facility] Last Admin: 05/15/17 19:20 Dose: 5 mg Brimonidine Tartrate (Alphagan 0.2% Opht) 1 ml OU TID [facility] Last Admin: 05/17/17 09:54 Dose: 1 applic Collagenase (Santyl) 0 gm TOP DAILY [facility] Last Admin: 05/17/17 09:54 Dose: 1 applic Epoetin Maxwell (Procrit) 10,000 unit IV MWF [facility] Last Admin: 05/15/17 11:11 Dose: 10,000 unit Ergocalciferol (Drisdol 50,000 Intl Units Cap) 1 cap PO Q7D [facility] Last Admin: 05/16/17 22:02 Dose: 1 cap Hydrocortisone Sodium Succinate (Solu-Cortef) 50 mg IV Q8H [facility] Linezolid (Zyvox 600mg/300ml D5w) 600 mg in 300 mls @ 200 mls/hr IVPB Q12 [facility] Last Admin: 05/17/17 09:51 Dose: 200 mls/hr Propofol (Diprivan) 1,000 mg in 100 mls @ 1.762 mls/hr IV .Q24H PRN; Protocol; 5 MCG/KG/MIN PRN Reason: TITRATE PER MD ORDER Last Titration: 05/13/17 20:00 Dose: 10 mcg/kg/min, 3.524 mls/hr Micafungin Sodium 100 mg/ (Sodium Chloride) 100 mls @ 100 mls/hr IV Q24H [facility] Last Admin: 05/16/17 19:44 Dose: 100 mls/hr Norepinephrine Bitartrate 8 mg (/ Sodium Chloride) 250 mls @ 7.5 mls/hr IV .Q24H PRN; Protocol; 4 MCG/MIN PRN Reason: TITRATE PER MD ORDER Last Admin: 05/17/17 07:47 Dose: 20 mcg/min, 37.5 mls/hr Gentamicin Sulfate/Sodium Chloride (Gentamicin Iv 80 Mg Premix) 80 mg in 100 mls @ 100 mls/hr IVPB Q24H [facility] Insulin Glargine (Lantus) 10 unit SC [facility] Last Admin: 05/17/17 09:52 Dose: Not Given Insulin Human Regular (Novolin R) 0 unit SC Q4 [facility] PRN Reason: Protocol Last Admin: 05/17/17 12:12 Dose: Not Given Latanoprost (Xalatan Opht) 0.02 ml OU HS [facility] Last Admin: 05/16/17 21:22 Dose: 0.02 ml Midodrine (Proamatine) 10 mg PO ONCE PRN PRN Reason: Diastolic blood pressure Last Admin: 05/09/17 11:02 Dose: 10 mg Nystatin (Nystop Topical Powder) 1 gm TOP Q8H [facility] Last Admin: 05/17/17 07:53 Dose: 1 applic Pantoprazole Sodium (Protonix Inj) 40 mg IVP DAILY [facility] Last Admin: 05/17/17 09:50 Dose: 40 mg Potassium Phos/Sodium Phos (Neutra-Phos) 1 pkt PO BIDPC [facility] Last Admin: 05/17/17 09:55 Dose: 1 pkt Rosuvastatin Calcium (Crestor) 10 mg PO HS [facility] Last Admin: 05/16/17 21:11 Dose: 10 mg Thiamine HCl (Vitamin B1 Inj) 100 mg IV Q8H [facility] Last Admin: 05/17/17 05:30 Dose: 100 mg Timolol Maleate (Timoptic 0.5% Oph Soln) 1 drop OU BID [facility] Last Admin: 05/17/17 09:54 Dose: 1 drop Vitamin B Complex/Vit C/Folic Acid (Nephro-Alonzo) 1 tab PO 0800 [facility] Last Admin: 05/17/17 07:53 Dose: 1 tab - Labs Labs: 05/17/17 06:50 05/17/17 06:51 PT 14.8 SECONDS (9.7-12.2) H 05/16/17 06:58 INR 1.3 05/16/17 06:58 APTT 30 SECONDS (21-34) 05/16/17 06:58 Attending/Attestation - Attestation I have personally seen and examined this patient.: Yes I have fully participated in the care of the patient.: Yes I have reviewed all pertinent clinical information, including history, physical exam and plan: Yes Notes (Text): 05/17/17 13:00 Agree with resident note and plan of care
--- NOTE | 2017-05-02 16:28 | CP.PCM.PN ---
Subjective - Date & Time of Evaluation Date of Evaluation: 05/02/17 Time of Evaluation: 16:26 - Subjective Subjective: bs up and down creat low prot/alb low check 24 hr gfr next hd on Thursday, stable for same. Objective - Vital Signs/Intake and Output Vital Signs (last 24 hours): Temp Pulse Resp BP Pulse Ox 98 F 90 18 138/75 99 05/02/17 08:11 05/02/17 08:11 05/02/17 08:11 05/02/17 08:11 05/02/17 08:11 Intake and Output: 05/02/17 05/02/17 06:59 18:59 Intake Total 300 480 Output Total 25 Balance 300 455 - Medications Medications: Current Medications Acetaminophen (Tylenol 325mg Tab) 650 mg PO Q6 PRN PRN Reason: Pain, moderate (4-7) Last Admin: 05/01/17 18:01 Dose: 650 mg Apixaban (Eliquis) 5 mg PO BID [facility] Last Admin: 05/02/17 10:45 Dose: Not Given Brimonidine Tartrate (Alphagan 0.2% Opht) 1 ml OU TID [facility] Last Admin: 05/02/17 10:44 Dose: Not Given Collagenase (Santyl) 0 gm TOP Q12H [facility] Last Admin: 05/02/17 05:40 Dose: 1 applic Dextrose (Dextrose 50%) 0 ml IV STAT PRN; Protocol PRN Reason: Hypoglycemia Protocol Last Admin: 04/28/17 09:46 Dose: 50 ml Epoetin Maxwell (Procrit) 10,000 unit IV MWF [facility] Last Admin: 05/01/17 10:36 Dose: 10,000 unit Ergocalciferol (Drisdol 50,000 Intl Units Cap) 1 cap PO Q7D [facility] Last Admin: 04/25/17 22:47 Dose: Not Given Furosemide (Lasix) 40 mg PO DAILY [facility] Last Admin: 05/02/17 10:45 Dose: Not Given Glucagon (Glucagen Diagnostic Kit) 1 mg IM STAT PRN; Protocol PRN Reason: Hypoglycemia Protocol Hydralazine HCl (Apresoline) 25 mg PO BID [facility] Last Admin: 05/02/17 10:44 Dose: Not Given Hydromorphone HCl (Dilaudid) 0.5 mg IVP Q6H PRN PRN Reason: Pain, severe (8-10) Last Admin: 05/02/17 03:21 Dose: 0.5 mg Dextrose/Sodium Chloride (Dextrose 5%/0.45% Ns 1000 Ml) 1,000 mls @ 60 mls/hr IV .[id number] [facility] Last Admin: 05/01/17 05:37 Dose: Not Given Piperacillin Sod/Tazobactam Sod (Zosyn 2.25 Gm Iv Premix) 2.25 gm in 50 mls @ 200 mls/hr IVPB Q8 [facility] Last Admin: 05/02/17 14:28 Dose: 200 mls/hr Linezolid (Zyvox 600mg/300ml D5w) 600 mg in 300 mls @ 200 mls/hr IVPB Q12H [facility] Last Admin: 05/02/17 12:30 Dose: 200 mls/hr Gentamicin Sulfate/Sodium Chloride (Gentamicin Iv 80 Mg Premix) 80 mg in 100 mls @ 100 mls/hr IVPB MWF [facility] Last Admin: 05/01/17 09:43 Dose: Not Given Dextrose/Sodium Chloride (Dextrose 5%/0.9% Ns 1000 Ml) 1,000 mls @ 60 mls/hr IV .[id number] ONE Stop: 05/03/17 02:42 Last Admin: 05/02/17 14:32 Dose: 60 mls/hr Insulin Glargine (Lantus) 10 unit SC HS [facility] Insulin Human Regular (Novolin R) 0 unit SC ACHS [facility] PRN Reason: Protocol Last Admin: 05/02/17 08:09 Dose: Not Given Latanoprost (Xalatan Opht) 0.02 ml OU HS [facility] Last Admin: 05/01/17 22:12 Dose: 0.02 ml Megestrol Acetate (Megace) 40 mg PO DAILY [facility] Last Admin: 05/02/17 10:45 Dose: Not Given Midodrine (Proamatine) 10 mg PO ONCE PRN PRN Reason: Diastolic blood pressure Last Admin: 04/29/17 09:50 Dose: 10 mg Nystatin (Nystop Topical Powder) 1 gm TOP Q8H [facility] Last Admin: 05/02/17 08:09 Dose: Not Given Pantoprazole Sodium (Protonix Susp) 40 mg PO DAILY [facility] Last Admin: 05/02/17 10:46 Dose: Not Given Rosuvastatin Calcium (Crestor) 10 mg PO HS [facility] Last Admin: 05/01/17 22:11 Dose: 10 mg Thiamine HCl (Vitamin B1 Inj) 100 mg IV Q8H [facility] Last Admin: 05/02/17 14:19 Dose: 100 mg Timolol Maleate (Timoptic 0.5% Ophth Soln) 1 drop OU BID [facility] Last Admin: 05/02/17 10:46 Dose: Not Given Vitamin B Complex/Vit C/Folic Acid (Nephro-Alonzo) 1 tab PO 0800 [facility] Last Admin: 05/02/17 08:09 Dose: Not Given - Labs Labs: 05/01/17 09:44 05/01/17 09:44 PT 11.7 SECONDS (9.7-12.2) 04/11/17 18:55 INR 1.0 04/11/17 18:55 APTT 31 SECONDS (21-34) 04/23/17 06:26 - Constitutional Appears: Non-toxic - Head Exam Head Exam: NORMAL INSPECTION - Eye Exam Eye Exam: Normal appearance - ENT Exam ENT Exam: Mucous Membranes Moist - Respiratory Exam Respiratory Exam: Clear to Ausculation Bilateral, NORMAL BREATHING PATTERN - Cardiovascular Exam Cardiovascular Exam: REGULAR RHYTHM - GI/Abdominal Exam GI & Abdominal Exam: Soft, Normal Bowel Sounds - Neurological Exam Neurological Exam: Awake - Psychiatric Exam Psychiatric exam: Normal Mood - Skin Skin Exam: Dry, Warm
[2017-05-02] MEDS ORDERED: Dextrose 50% VIAL Inj (50 ml) IV STA (16:50)
[2017-05-02] MEDS ORDERED: Potassium Chloride 20 mEq/15 ml LIQ UD PO SCH (17:00)
[2017-05-02] MEDS ORDERED: (Lantus) Insulin Glargine, Recombinant SC SCH (22:00)
[2017-05-02] MEDS: Latanoprost 2.5 ml Opht Soln OU SCH (22:13)
[2017-05-02] MEDS: Ergocalciferol 50,000 Intl Units Cap PO SCH (23:17)
[2017-05-02] MEDS: Dextrose 5%/0.45% NS 1,000 ML IV SCH (23:52)
[2017-05-03] MEDS: Nystatin 100,000 Units/gm Topical Pow(15 gm) TOP SCH ×3 (00:01→18:23)
[2017-05-03] MEDS: Piperacill/Tazo 2.25gm in Dex 2.25 GM/50 ML BAG IVPB SCH ×4 (02:38→21:57)
[2017-05-03] MEDS: HYDROmorphone 0.5 mg/0.5 ml ISec IVP PRN ×3 (03:03→18:56)
[2017-05-03] MEDS: Linezolid 600 mg in D5W 300 ml 600 MG/300 ML BAG IVPB SCH ×3 (03:05→23:31)
[2017-05-03] MEDS: Thiamine 100 mg/ml Inj IV SCH ×3 (05:46→21:57)
[2017-05-03] MEDS: Collagenase 250 Units/gm Ointment(30 gm) TOP SCH ×2 (05:57→18:23)
[2017-05-03] MEDS: (Novolin R) Insulin Human Regular 100 units/ml vial SC SCH ×4 (08:28→21:56)
[2017-05-03] MEDS: Multivitamin Vitamin B Complex (Nephro-Vite) Tab PO SCH (08:35)
--- NOTE | 2017-05-03 08:56 | CP.PCM.PN ---
<Poonam Rosenbaum H - Last Filed: 05/03/17 08:53> Subjective - Date & Time of Evaluation Date of Evaluation: 05/03/17 Time of Evaluation: 08:00 - Subjective Subjective: Medicine Note (PGY-3)-----> Dr. Myrick's service Patient was seen and examined at bedside. Patient crying out about pain in her left leg. Patient does not answer any other ROS. Patient keeps saying she has pain. Objective - Vital Signs/Intake and Output Vital Signs (last 24 hours): Temp Pulse Resp BP Pulse Ox 98.6 F 108 H 20 90/57 L 96 05/03/17 08:39 05/03/17 08:39 05/03/17 08:39 05/03/17 08:39 05/03/17 08:39 Intake and Output: 05/03/17 05/03/17 06:59 18:59 Intake Total 480 Output Total 100 Balance -100 480 - Medications Medications: Current Medications Acetaminophen (Tylenol 325mg Tab) 650 mg PO Q6 PRN PRN Reason: Pain, moderate (4-7) Last Admin: 05/01/17 18:01 Dose: 650 mg Apixaban (Eliquis) 5 mg PO BID [facility] Last Admin: 05/02/17 17:39 Dose: 5 mg Brimonidine Tartrate (Alphagan 0.2% Opht) 1 ml OU TID [facility] Last Admin: 05/02/17 17:55 Dose: 1 drop Collagenase (Santyl) 0 gm TOP Q12H [facility] Last Admin: 05/03/17 05:57 Dose: 1 applic Dextrose (Dextrose 50%) 0 ml IV STAT PRN; Protocol PRN Reason: Hypoglycemia Protocol Last Admin: 04/28/17 09:46 Dose: 50 ml Epoetin Maxwell (Procrit) 10,000 unit IV MWF [facility] Last Admin: 05/01/17 10:36 Dose: 10,000 unit Ergocalciferol (Drisdol 50,000 Intl Units Cap) 1 cap PO Q7D [facility] Last Admin: 05/02/17 23:17 Dose: Not Given Furosemide (Lasix) 40 mg PO DAILY [facility] Last Admin: 05/02/17 10:45 Dose: Not Given Glucagon (Glucagen Diagnostic Kit) 1 mg IM STAT PRN; Protocol PRN Reason: Hypoglycemia Protocol Last Admin: 05/02/17 22:26 Dose: 1 mg Hydralazine HCl (Apresoline) 25 mg PO BID [facility] Last Admin: 05/02/17 17:55 Dose: Not Given Hydromorphone HCl (Dilaudid) 0.5 mg IVP Q6H PRN PRN Reason: Pain, severe (8-10) Last Admin: 05/03/17 03:03 Dose: 0.5 mg Dextrose/Sodium Chloride (Dextrose 5%/0.45% Ns 1000 Ml) 1,000 mls @ 60 mls/hr IV .[id number] [facility] Last Admin: 05/01/17 05:37 Dose: Not Given Piperacillin Sod/Tazobactam Sod (Zosyn 2.25 Gm Iv Premix) 2.25 gm in 50 mls @ 200 mls/hr IVPB Q8 [facility] Last Admin: 05/03/17 05:47 Dose: 200 mls/hr Linezolid (Zyvox 600mg/300ml D5w) 600 mg in 300 mls @ 200 mls/hr IVPB Q12H [facility] Last Admin: 05/03/17 03:05 Dose: 200 mls/hr Gentamicin Sulfate/Sodium Chloride (Gentamicin Iv 80 Mg Premix) 80 mg in 100 mls @ 100 mls/hr IVPB MWF [facility] Last Admin: 05/01/17 09:43 Dose: Not Given Insulin Glargine (Lantus) 10 unit SC HS [facility] Insulin Human Regular (Novolin R) 0 unit SC ACHS ELINA PRN Reason: Protocol Last Admin: 05/03/17 08:28 Dose: Not Given Latanoprost (Xalatan Opht) 0.02 ml OU HS [facility] Last Admin: 05/02/17 22:13 Dose: 0.02 ml Megestrol Acetate (Megace) 40 mg PO DAILY [facility] Last Admin: 05/02/17 10:45 Dose: Not Given Midodrine (Proamatine) 10 mg PO ONCE PRN PRN Reason: Diastolic blood pressure Last Admin: 04/29/17 09:50 Dose: 10 mg Nystatin (Nystop Topical Powder) 1 gm TOP Q8H [facility] Last Admin: 05/03/17 00:01 Dose: 1 gra Pantoprazole Sodium (Protonix Susp) 40 mg PO DAILY [facility] Last Admin: 05/02/17 10:46 Dose: Not Given Rosuvastatin Calcium (Crestor) 10 mg PO HS [facility] Last Admin: 05/02/17 22:07 Dose: Not Given Thiamine HCl (Vitamin B1 Inj) 100 mg IV Q8H [facility] Last Admin: 05/03/17 05:46 Dose: 100 mg Timolol Maleate (Timoptic 0.5% Ophth Soln) 1 drop OU BID [facility] Last Admin: 05/02/17 17:40 Dose: 1 drop Vitamin B Complex/Vit C/Folic Acid (Nephro-Alonzo) 1 tab PO 0800 [facility] Last Admin: 05/02/17 08:09 Dose: Not Given - Labs Labs: 05/01/17 09:44 05/01/17 09:44 PT 11.7 SECONDS (9.7-12.2) 04/11/17 18:55 INR 1.0 04/11/17 18:55 APTT 31 SECONDS (21-34) 04/23/17 06:26 - Constitutional Appears: Non-toxic, No Acute Distress, Chronically Ill - Head Exam Head Exam: NORMAL INSPECTION - Eye Exam Eye Exam: EOMI - ENT Exam ENT Exam: Mucous Membranes Moist - Respiratory Exam Respiratory Exam: Rales, NORMAL BREATHING PATTERN. absent: Accessory Muscle Use , Rhonchi, Wheezes, Respiratory Distress - Cardiovascular Exam Cardiovascular Exam: REGULAR RHYTHM, +S1, +S2. absent: Rubs, Murmur - GI/Abdominal Exam GI & Abdominal Exam: Soft, Normal Bowel Sounds. absent: Tenderness - Extremities Exam Additional comments: UE edema Left BKA healing well, clean dressing Right LE edema - Neurological Exam Neurological Exam: Alert, Awake - Psychiatric Exam Psychiatric exam: Agitated - Skin Skin Exam: Normal Color, Warm Assessment and Plan - Assessment and Plan (Free Text) Assessment: (1) Sepsis Assessment & Plan: Infectious Disease, Dr. Wellington on board----> help appreciated * As per ID, antibiotics should be stopped after two weeks Leukocytosis with no bandemia * WBC has normalized On admission: WBC: 21.3, HR: 107 Sacral culture (04/11/17) : Gram negative kendy, proteus mirabilis Blood culture (04/11/17): Gram positive cocci, Staphyl aureus and coag-negative staph S/P Left BKA culture (04/11/17): Gram negative kendy, proteus mirabilis, klebsiella pneumonia and vancomycin resistance E.faecium Medications/management: * Gentamicin 80mg IVPB HD (started 04/22/17) * Zosyn 2.25gm IVPB Q8H (started 04/13/17) * Vancomycin 1gm IVPB on HD---> Discontinued * Linezolid 600mg IVPB Q12H ---> Started on 04/14 Status: Acute (2) Pulmonary embolism Assessment & Plan: Chest CT angio: Filling defects are noted at both upper lobes pulmonary arteries suggestive of pulmonary embolus. Large bilateral pleural effusion. Mild cardiomegaly. Fale-da-wnajlfor pericardial effusion. [id number] anasarca. Lower lobe atelectasis due to pleural effusion. Medications: Discontinued Heparin drip Started on eliquis 5mg PO daily (04/30/17) after completion of eliquis 10mg PO daily for 7 days Status: Acute (3) Serum albumin decreased Assessment & Plan: Possibly secondary to decrease PO intake and appetite Medication/Management: * Encourage PO intake * Supplemental drink: Glucerna TID * Continue to monitor with am labs * Megace 40mg PO daily (Appetite stimulant) * Started on D5w LR @ 60mls/hr due hypoglycemic episode. Disposition: Patient's continues to refuse PEG tube placement for appropriate nutrition. Status: Acute (4) End stage renal disease on dialysis Assessment & Plan: Employee Communications Coordinator, Dr. Ambrose---> Help appreciated * Management as per recommendation Management/Medications: On HD (TTS) ---> MWF ( for this admission) * Via Left Arm shunt * PICC line inserted by IR 03/23/17 - DVT in R upper extremity Ergocalciferol 1 cap PO Q7D Procrit 10,000 unit IV MWF Ferric sodium gluconate 125 mg MWF Nephrovite Eliquis 5mg PO BID; after the completion of 10mg PO bid for 7 days for R upper extremity DVT Status: Chronic (5) Sacral decubitus ulcer, stage III Assessment & Plan: General Surgery, Dr. Broussard consulted * No surgical intervention at this time * Nancieyl for sacral decub ID, Dr. Wellington consulted * As per ID, antibiotics should be stopped after two weeks Wound care consult Lab: Gram Negative kendy, proteus mirabilis Medication: * Gentamicin 80mg IVPB HD * Zosyn 2.25gm IVPB Q8H * Linezolid 600mg IVPB Q12H (started 04/14/17) Status: Acute (6) S/P BKA (below knee amputation) Assessment & Plan: General Surgery, Dr. Broussard---> Help appreciated * Management as per recommendation * BKA (03/30/17) * Bedside debridement for left BKA stump (04/25/17) by Dr. Broussard ID, Dr. Wellington----> Help appreciated * Antibiotics should be stopped after two weeks. Wound care consult Daily dressing changes with nicolas Lab: Wound culture: Gram negative kendy; proteus mirabilis, klebsiella pneumonia and vancomycin resistance E.faecium Medications: * Gentamicin 80mg IVPB HD * Zosyn 2.25gm IVPB Q8H * Linezolid 600mg IVPB Q12H * Dilaudid 0.5mg IvP Q6H --> increased frequency to Q4H Status: Acute (7) Anemia, chronic disease Assessment & Plan: H/H Stable * transfused 2 units of PRBC on HD (04/15/17) * Continue to monitor Medication: * Procrit 10,000 unit IV TTS ( on HD) on this admission, M,W,F Status: Chronic (8) Glaucoma Assessment & Plan: Medications: * Timolol 0.5% OU BID * Latanoprost 0.02 ml OU HS * Brimonidine 1ml OU TID Status: Acute (9) Diabetes mellitus Assessment & Plan: HgbA1C (02/18/17): 8.7 Management/Medication: * Accuchecks * ISS medium dose * Hypoglycemia protocol * Lantus decreased to 10U HS from 15U HS * D5W at 60mls/hr due to hypoglycemic episodes and decreased PO intake Status: Acute (10) History of CHF (congestive heart failure) Assessment & Plan: Echo (03/09/17): EF=61%, please refer to the full report for complete impression Medication: * Lasix 40mg PO daily Status: Acute (11) Hypertension Assessment & Plan: Medication: * Norvasc 5mg PO daily (Held due to chronic right peripheral edema) * Hydralazine 25mg PO BID * Lisinopril 20mg PO daily Status: Chronic (12) History of hyperlipidemia Assessment & Plan: Crestor 10mg PO HS Status: Acute (13) Prophylactic measure Assessment & Plan: GI: Protonix 40mg PO daily DVT: Heparin 5,000 units SC Q12H PT and OT Disposition: Possible LTAC placement or higher level of subacute care. At this moment, block and case maker and social director are working on possible placement to LTAC and [facility]. At this moment, patient has been denies at LTAC, however block and case maker/social director and Dr. Myrick are working for an alternative placement. All management and plan as per Dr. Myrick Status: Acute <Benson Myrick Jr. - Last Filed: 05/17/17 13:03> Objective - Vital Signs/Intake and Output Vital Signs (last 24 hours): Temp Pulse Resp BP Pulse Ox 99.5 F 134 H 16 135/48 L 100 05/17/17 08:00 05/17/17 11:00 05/17/17 11:00 05/17/17 11:00 05/17/17 11:00 Intake and Output: 05/17/17 05/17/17 06:59 18:59 Intake Total 1285.3 507.5 Output Total 100 Balance 1185.3 507.5 - Medications Medications: Current Medications Acetaminophen (Tylenol 650mg/20.3ml Solution Ud) 650 mg PO Q6 PRN PRN Reason: Fever >100.4 F Last Admin: 05/16/17 12:23 Dose: 650 mg Albumin Human (Albumin Human 5% (12.5 Gm/250 Ml)) 12.5 gm IV MWF PRN PRN Reason: hypotension Last Admin: 05/15/17 11:45 Dose: 12.5 gm Apixaban (Eliquis) 5 mg PO BID [facility] Last Admin: 05/15/17 19:20 Dose: 5 mg Brimonidine Tartrate (Alphagan 0.2% Opht) 1 ml OU TID [facility] Last Admin: 05/17/17 13:01 Dose: 1 applic Collagenase (Santyl) 0 gm TOP DAILY [facility] Last Admin: 05/17/17 09:54 Dose: 1 applic Epoetin Maxwell (Procrit) 10,000 unit IV MWF [facility] Last Admin: 05/15/17 11:11 Dose: 10,000 unit Ergocalciferol (Drisdol 50,000 Intl Units Cap) 1 cap PO Q7D [facility] Last Admin: 05/16/17 22:02 Dose: 1 cap Hydrocortisone Sodium Succinate (Solu-Cortef) 50 mg IV Q8H [facility] Last Admin: 05/17/17 12:58 Dose: Not Given Linezolid (Zyvox 600mg/300ml D5w) 600 mg in 300 mls @ 200 mls/hr IVPB Q12 [facility] Last Admin: 05/17/17 09:51 Dose: 200 mls/hr Propofol (Diprivan) 1,000 mg in 100 mls @ 1.762 mls/hr IV .Q24H PRN; Protocol; 5 MCG/KG/MIN PRN Reason: TITRATE PER MD ORDER Last Titration: 05/13/17 20:00 Dose: 10 mcg/kg/min, 3.524 mls/hr Micafungin Sodium 100 mg/ (Sodium Chloride) 100 mls @ 100 mls/hr IV Q24H [facility] Last Admin: 05/16/17 19:44 Dose: 100 mls/hr Norepinephrine Bitartrate 8 mg (/ Sodium Chloride) 250 mls @ 7.5 mls/hr IV .Q24H PRN; Protocol; 4 MCG/MIN PRN Reason: TITRATE PER MD ORDER Last Admin: 05/17/17 07:47 Dose: 20 mcg/min, 37.5 mls/hr Gentamicin Sulfate/Sodium Chloride (Gentamicin Iv 80 Mg Premix) 80 mg in 100 mls @ 100 mls/hr IVPB Q24H [facility] Last Admin: 05/17/17 12:56 Dose: 100 mls/hr Insulin Glargine (Lantus) 10 unit SC AMHS [facility] Last Admin: 05/17/17 09:52 Dose: Not Given Insulin Human Regular (Novolin R) 0 unit SC Q4 ELINA PRN Reason: Protocol Last Admin: 05/17/17 12:12 Dose: Not Given Latanoprost (Xalatan Opht) 0.02 ml OU HS [facility] Last Admin: 05/16/17 21:22 Dose: 0.02 ml Midodrine (Proamatine) 10 mg PO ONCE PRN PRN Reason: Diastolic blood pressure Last Admin: 05/09/17 11:02 Dose: 10 mg Nystatin (Nystop Topical Powder) 1 gm TOP Q8H [facility] Last Admin: 05/17/17 07:53 Dose: 1 applic Pantoprazole Sodium (Protonix Inj) 40 mg IVP DAILY [facility] Last Admin: 05/17/17 09:50 Dose: 40 mg Potassium Phos/Sodium Phos (Neutra-Phos) 1 pkt PO BIDPC [facility] Last Admin: 05/17/17 09:55 Dose: 1 pkt Rosuvastatin Calcium (Crestor) 10 mg PO HS [facility] Last Admin: 05/16/17 21:11 Dose: 10 mg Thiamine HCl (Vitamin B1 Inj) 100 mg IV Q8H [facility] Last Admin: 05/17/17 05:30 Dose: 100 mg Timolol Maleate (Timoptic 0.5% Oph Soln) 1 drop OU BID [facility] Last Admin: 05/17/17 09:54 Dose: 1 drop Vitamin B Complex/Vit C/Folic Acid (Nephro-Alonzo) 1 tab PO 0800 [facility] Last Admin: 05/17/17 07:53 Dose: 1 tab - Labs Labs: 05/17/17 06:50 05/17/17 06:51 PT 14.8 SECONDS (9.7-12.2) H 05/16/17 06:58 INR 1.3 05/16/17 06:58 APTT 30 SECONDS (21-34) 05/16/17 06:58 Attending/Attestation - Attestation I have personally seen and examined this patient.: Yes I have fully participated in the care of the patient.: Yes I have reviewed all pertinent clinical information, including history, physical exam and plan: Yes Notes (Text): 05/17/17 13:02 Agree with resident note and plan of care
[2017-05-03] MEDS: Pantoprazole 40 mg Susp UD PO SCH (09:41)
[2017-05-03] MEDS: Brimonidine 0.2% Opth Sol (5ml) OU SCH ×3 (09:41→18:22)
[2017-05-03] MEDS: Dextrose 5%/0.45% NS 1,000 ML IV SCH (09:42)
--- NOTE | 2017-05-03 14:58 | CP.PCM.PN ---
Subjective - Date & Time of Evaluation Date of Evaluation: 05/03/17 Time of Evaluation: 08:00 - Subjective Subjective: weak and lethargic no fever wounds improving Objective - Vital Signs/Intake and Output Vital Signs (last 24 hours): Temp Pulse Resp BP Pulse Ox 98.6 F 108 H 20 90/57 L 96 05/03/17 08:39 05/03/17 08:39 05/03/17 08:39 05/03/17 08:39 05/03/17 08:39 Intake and Output: 05/03/17 05/03/17 06:59 18:59 Intake Total 480 Output Total 100 Balance -100 480 - Medications Medications: Current Medications Acetaminophen (Tylenol 325mg Tab) 650 mg PO Q6 PRN PRN Reason: Pain, moderate (4-7) Last Admin: 05/01/17 18:01 Dose: 650 mg Apixaban (Eliquis) 5 mg PO BID [facility] Last Admin: 05/03/17 09:41 Dose: 5 mg Brimonidine Tartrate (Alphagan 0.2% Opht) 1 ml OU TID [facility] Last Admin: 05/03/17 13:13 Dose: 1 drop Collagenase (Santyl) 0 gm TOP Q12H [facility] Last Admin: 05/03/17 05:57 Dose: 1 applic Dextrose (Dextrose 50%) 0 ml IV STAT PRN; Protocol PRN Reason: Hypoglycemia Protocol Last Admin: 04/28/17 09:46 Dose: 50 ml Epoetin Maxwell (Procrit) 10,000 unit IV MWF [facility] Last Admin: 05/01/17 10:36 Dose: 10,000 unit Ergocalciferol (Drisdol 50,000 Intl Units Cap) 1 cap PO Q7D [facility] Last Admin: 05/02/17 23:17 Dose: Not Given Furosemide (Lasix) 40 mg PO DAILY [facility] Last Admin: 05/03/17 09:43 Dose: Not Given Glucagon (Glucagen Diagnostic Kit) 1 mg IM STAT PRN; Protocol PRN Reason: Hypoglycemia Protocol Last Admin: 05/02/17 22:26 Dose: 1 mg Hydralazine HCl (Apresoline) 25 mg PO BID [facility] Last Admin: 05/03/17 09:42 Dose: Not Given Hydromorphone HCl (Dilaudid) 0.5 mg IVP Q4H PRN PRN Reason: Pain, severe (8-10) Last Admin: 05/03/17 11:06 Dose: 0.5 mg Dextrose/Sodium Chloride (Dextrose 5%/0.45% Ns 1000 Ml) 1,000 mls @ 60 mls/hr IV .[id number] [facility] Last Admin: 05/03/17 09:42 Dose: Not Given Piperacillin Sod/Tazobactam Sod (Zosyn 2.25 Gm Iv Premix) 2.25 gm in 50 mls @ 200 mls/hr IVPB Q8 [facility] Last Admin: 05/03/17 13:20 Dose: 200 mls/hr Linezolid (Zyvox 600mg/300ml D5w) 600 mg in 300 mls @ 200 mls/hr IVPB Q12H [facility] Last Admin: 05/03/17 12:30 Dose: 200 mls/hr Gentamicin Sulfate/Sodium Chloride (Gentamicin Iv 80 Mg Premix) 80 mg in 100 mls @ 100 mls/hr IVPB MWF [facility] Last Admin: 05/01/17 09:43 Dose: Not Given Insulin Glargine (Lantus) 10 unit SC [facility] Insulin Human Regular (Novolin R) 0 unit SC [facility] PRN Reason: Protocol Last Admin: 05/03/17 12:00 Dose: Not Given Latanoprost (Xalatan Opht) 0.02 ml OU HS [facility] Last Admin: 05/02/17 22:13 Dose: 0.02 ml Megestrol Acetate (Megace) 40 mg PO DAILY [facility] Last Admin: 05/03/17 09:40 Dose: 40 mg Midodrine (Proamatine) 10 mg PO ONCE PRN PRN Reason: Diastolic blood pressure Last Admin: 04/29/17 09:50 Dose: 10 mg Nystatin (Nystop Topical Powder) 1 gm TOP Q8H [facility] Last Admin: 05/03/17 08:35 Dose: 1 gra Pantoprazole Sodium (Protonix Susp) 40 mg PO DAILY [facility] Last Admin: 05/03/17 09:41 Dose: 40 mg Rosuvastatin Calcium (Crestor) 10 mg PO HS [facility] [place] Last Admin: 05/02/17 22:07 Dose: Not Given Thiamine HCl (Vitamin B1 Inj) 100 mg IV Q8H [facility] Last Admin: 05/03/17 13:49 Dose: 100 mg Timolol Maleate (Timoptic 0.5% Ophth Soln) 1 drop OU BID [facility] Last Admin: 05/03/17 09:44 Dose: 1 drop Vitamin B Complex/Vit C/Folic Acid (Nephro-Alonzo) 1 tab PO 0800 [facility] Last Admin: 05/03/17 08:35 Dose: 1 tab - Labs Labs: 05/01/17 09:44 05/01/17 09:44 PT 11.7 SECONDS (9.7-12.2) 04/11/17 18:55 INR 1.0 04/11/17 18:55 APTT 31 SECONDS (21-34) 04/23/17 06:26 - Constitutional Appears: Non-toxic, Chronically Ill - Head Exam Head Exam: NORMOCEPHALIC - Eye Exam Eye Exam: PERRL - ENT Exam ENT Exam: Mucous Membranes Dry - Neck Exam Neck Exam: absent: Lymphadenopathy - Respiratory Exam Respiratory Exam: Decreased Breath Sounds - Cardiovascular Exam Cardiovascular Exam: REGULAR RHYTHM - GI/Abdominal Exam GI & Abdominal Exam: Distended Assessment and Plan (1) Elevated WBC count Status: Acute (2) S/P BKA (below knee amputation) Status: Acute (3) Sacral decubitus ulcer, stage III Status: Acute (4) Sepsis Status: Acute
[2017-05-03] MEDS: Latanoprost 2.5 ml Opht Soln OU SCH (22:04)
[2017-05-04] MEDS: Dextrose 5%/0.45% NS 1,000 ML IV SCH (00:04)
[2017-05-04] MEDS: Nystatin 100,000 Units/gm Topical Pow(15 gm) TOP SCH ×3 (00:05→17:15)
[2017-05-04] MEDS: HYDROmorphone 0.5 mg/0.5 ml ISec IVP PRN ×3 (02:42→18:21)
[2017-05-04] MEDS: Piperacill/Tazo 2.25gm in Dex 2.25 GM/50 ML BAG IVPB SCH (05:18)
[2017-05-04] MEDS: Collagenase 250 Units/gm Ointment(30 gm) TOP SCH ×2 (05:19→17:45)
[2017-05-04] MEDS: Thiamine 100 mg/ml Inj IV SCH ×3 (05:38→22:10)
[2017-05-04] MEDS: (Novolin R) Insulin Human Regular 100 units/ml vial SC SCH ×4 (06:34→21:31)
[2017-05-04] MEDS: Gentamicin 80 mg in 0.9% NS 80 MG/100 ML BAG IVPB SCH (08:48)
[2017-05-04] MEDS: Multivitamin Vitamin B Complex (Nephro-Vite) Tab PO SCH ×2 (08:49→09:34)
[2017-05-04] MEDS: Brimonidine 0.2% Opth Sol (5ml) OU SCH ×3 (10:20→17:43)
[2017-05-04] MEDS: Pantoprazole 40 mg Susp UD PO SCH (10:21)
[2017-05-04] MEDS ORDERED: Albumin Human 25% (12.5 gm/50 ml) IV ONE ×2 (10:27→13:00)
[2017-05-04] MEDS: Epoetin Alfa 10,000 unit/ml Dialysis IV SCH (11:46)
[2017-05-04 12:20] LABS: ALB/GLOB RATIO 1.3 (1.0-2.1); ALKALINE PHOSPHATASE 201 U/L (38-126); ALT/SGPT 33 U/L (9-52); AST/SGOT 33 U/L (14-36); BILIRUBIN,TOTAL 0.4 mg/dL (0.2-1.3); BLOOD UREA NITROGEN 15 mg/dL (7-17); CALCIUM 7.4 mg/dl (8.6-10.4); CARBON DIOXIDE 20 mmol/L (22-30); CHLORIDE 97 mmol/L (98-107); GFR AFRICAN-AMERICAN > 60; GLUCOSE,RANDOM 169 mg/dL (65-105); MAGNESIUM 1.7 mg/dL (1.6-2.3); PHOSPHOROUS 2.2 mg/dL (2.5-4.5); POTASSIUM 3.6 mmol/L (3.6-5.2); SODIUM 134 mmol/L (132-148); TOTAL PROTEIN 4.9 g/dL (6.3-8.3)
[2017-05-04 12:52] LABS: BASO # 0.1 K/uL (0.0-0.2); BASO % 0.7 % (0.0-2.0); EOS % 0.3 % (0.0-4.0); LYMPH # 1.8 K/uL (1.0-4.3); LYMPH % 11.6 % (20.0-40.0); MEAN CELL VOLUME 90.9 fL (81.0-99.0); MEAN CORPUSCULAR HEMOGLOBIN 29.9 pg (27.0-31.0); MEAN CORPUSCULAR HGB CONC 32.9 g/dL (33.0-37.0); MEAN PLATELET VOLUME 9.5 fL (7.2-11.7); MONO # 0.6 K/uL (0.0-0.8); MONO % 3.8 % (0.0-10.0); NRBC % 0.7 % (0.0-2.0)
[2017-05-04] MEDS: Linezolid 600 mg in D5W 300 ml 600 MG/300 ML BAG IVPB SCH (12:57)
[2017-05-04 13:00] LABS: WHITE BLOOD COUNT 15.3 K/uL (4.8-10.8)
--- NOTE | 2017-05-04 15:20 | CP.PCM.PN ---
Subjective - Date & Time of Evaluation Date of Evaluation: 05/04/17 Time of Evaluation: 07:20 - Subjective Subjective: Medicine Note (PGY-1)---> Dr. Myrick's service Patient was seen and examined at bedside. Patient is clinically unchanged. Unable to evaluate appropriate ROS due to patient's condition, however, patient only continues to complain of pain at left BKA stump. Objective - Vital Signs/Intake and Output Vital Signs (last 24 hours): Temp Pulse Resp BP Pulse Ox 97.7 F 98 H 18 88/75 L 95 05/04/17 09:51 05/04/17 09:50 05/04/17 08:24 05/04/17 12:56 05/04/17 08:24 - Medications Medications: Current Medications Acetaminophen (Tylenol 325mg Tab) 650 mg PO Q6 PRN PRN Reason: Pain, moderate (4-7) Last Admin: 05/01/17 18:01 Dose: 650 mg Apixaban (Eliquis) 5 mg PO BID [facility] Last Admin: 05/04/17 10:21 Dose: Not Given Brimonidine Tartrate (Alphagan 0.2% Opht) 1 ml OU TID [facility] Last Admin: 05/04/17 13:46 Dose: 1 drop Collagenase (Santyl) 0 gm TOP Q12H [facility] Last Admin: 05/04/17 05:19 Dose: 1 applic Dextrose (Dextrose 50%) 0 ml IV STAT PRN; Protocol PRN Reason: Hypoglycemia Protocol Last Admin: 04/28/17 09:46 Dose: 50 ml Epoetin Maxwell (Procrit) 10,000 unit IV MWF [facility] Last Admin: 05/04/17 11:46 Dose: 10,000 unit Ergocalciferol (Drisdol 50,000 Intl Units Cap) 1 cap PO Q7D [facility] Last Admin: 05/02/17 23:17 Dose: Not Given Furosemide (Lasix) 40 mg PO DAILY [facility] Last Admin: 05/04/17 10:21 Dose: Not Given Glucagon (Glucagen Diagnostic Kit) 1 mg IM STAT PRN; Protocol PRN Reason: Hypoglycemia Protocol Last Admin: 05/02/17 22:26 Dose: 1 mg Hydralazine HCl (Apresoline) 25 mg PO BID [facility] Last Admin: 05/04/17 10:20 Dose: Not Given Hydromorphone HCl (Dilaudid) 0.5 mg IVP Q4H PRN PRN Reason: Pain, severe (8-10) Last Admin: 05/04/17 05:18 Dose: 0.5 mg Dextrose/Sodium Chloride (Dextrose 5%/0.45% Ns 1000 Ml) 1,000 mls @ 60 mls/hr IV .[id number] [facility] Last Admin: 05/04/17 00:04 Dose: Not Given Linezolid (Zyvox 600mg/300ml D5w) 600 mg in 300 mls @ 200 mls/hr IVPB Q12H [facility] Last Admin: 05/04/17 12:57 Dose: Not Given Gentamicin Sulfate/Sodium Chloride (Gentamicin Iv 80 Mg Premix) 80 mg in 100 mls @ 100 mls/hr IVPB MWF [facility] Last Admin: 05/04/17 08:48 Dose: 100 mls/hr Insulin Glargine (Lantus) 10 unit SC HS [facility] Insulin Human Regular (Novolin R) 0 unit SC ACHS [facility] PRN Reason: Protocol Last Admin: 05/04/17 13:46 Dose: 6 unit Latanoprost (Xalatan Opht) 0.02 ml OU HS [facility] Last Admin: 05/03/17 22:04 Dose: 0.02 ml Megestrol Acetate (Megace) 40 mg PO DAILY [facility] Last Admin: 05/04/17 10:21 Dose: Not Given Midodrine (Proamatine) 10 mg PO ONCE PRN PRN Reason: Diastolic blood pressure Last Admin: 04/29/17 09:50 Dose: 10 mg Nystatin (Nystop Topical Powder) 1 gm TOP Q8H [facility] Last Admin: 05/04/17 08:50 Dose: 1 gra Pantoprazole Sodium (Protonix Susp) 40 mg PO DAILY [facility] Last Admin: 05/04/17 10:21 Dose: Not Given Rosuvastatin Calcium (Crestor) 10 mg PO HS [facility] Last Admin: 05/03/17 21:57 Dose: 10 mg Thiamine HCl (Vitamin B1 Inj) 100 mg IV Q8H [facility] Last Admin: 05/04/17 13:47 Dose: 100 mg Timolol Maleate (Timoptic 0.5% Ophth Soln) 1 drop OU BID [facility] Last Admin: 05/04/17 10:21 Dose: Not Given Vitamin B Complex/Vit C/Folic Acid (Nephro-Alonzo) 1 tab PO 0800 [facility] Last Admin: 05/04/17 09:34 Dose: Not Given - Labs Labs: 05/04/17 12:48 05/04/17 11:55 PT 11.7 SECONDS (9.7-12.2) 04/11/17 18:55 INR 1.0 04/11/17 18:55 APTT 31 SECONDS (21-34) 04/23/17 06:26 - Constitutional Appears: No Acute Distress - Head Exam Head Exam: ATRAUMATIC - Eye Exam Eye Exam: EOMI - ENT Exam ENT Exam: Mucous Membranes Dry - Respiratory Exam Respiratory Exam: Clear to Ausculation Bilateral, NORMAL BREATHING PATTERN - Cardiovascular Exam Cardiovascular Exam: REGULAR RHYTHM, +S1, +S2 - GI/Abdominal Exam GI & Abdominal Exam: Soft, Normal Bowel Sounds. absent: Guarding, Rigid, Tenderness - Extremities Exam Additional comments: Bilateral UE edema (R>L) Left BKA, Dressing changed with island dressing, 4 x 4 and cleaned, clean, dry and intact Right +2 pitting edema - Neurological Exam Neurological Exam: Alert, Awake. absent: Oriented x3 - Psychiatric Exam Psychiatric exam: Depressed - Skin Skin Exam: Normal Color Assessment and Plan (1) Sepsis Assessment & Plan: Leukocytosis with no bandemia * WBC trending up --> (15.3-05/04/17) * F/u repeat blood culture On admission: WBC: 21.3, HR: 107 Sacral culture (04/11/17) : Gram negative kendy, proteus mirabilis Blood culture (04/11/17): Gram positive cocci, Staphyl aureus and coag-negative staph S/P Left BKA (04/11/17): Gram negative kendy, proteus mirabilis, klebsiella pneumonia and vancomycin resistance E.faecium UA/ UC (05/01/17): Negative Medications/management: * Gentamicin 80mg IVPB HD * Zosyn 2.25gm IVPB Q8H * Linezolid 600mg IVPB Q12H ---> Started on 03/26 * Vancomycin 1gm IVPB on HD---> Discontinued Status: Acute (2) Pulmonary embolism Assessment & Plan: Chest CT angio: Filling defects are noted at both upper lobes pulmonary arteries suggestive of pulmonary embolus. Large bilateral pleural effusion. Mild cardiomegaly. [id number] pericardial effusion. [id number] anasarca. Lower lobe atelectasis due to pleural effusion. Medications: Eliquis 5mg PO BID Status: Acute (3) Serum albumin decreased Assessment & Plan: Possibly secondary to decrease PO intake and appetite Medication/Management: * Encourage PO intake * Supplemental drink: Glucerna TID * Continue to monitor with am labs * Megace 40mg PO daily (Appetite stimulant) * Started on D5w LR @ 60mls/hr due hypoglycemic episode. Disposition: Patient's continues to refuse PEG tube placement for appropriate nutrition. However, patient's is thinking about possible PEG tube placement. Status: Acute (4) End stage renal disease on dialysis Assessment & Plan: Hand Method Lasting Machine Operator, Dr. Ambrose---> Help appreciated * Management as per recommendation Management/Medications: On HD (TTS) ---> MWF ( for this admission) * Via Left Arm shunt * PICC line inserted by IR 03/23/17 - DVT in R upper extremity Ergocalciferol 1 cap PO Q7D Procrit 10,000 unit IV MWF Ferric sodium gluconate 125 mg MWF Nephrovite Eliquis 5mg PO BID; after the completion of 10mg PO bid for 7 days for R upper extremity DVT Status: Chronic (5) Sacral decubitus ulcer, stage III Assessment & Plan: General Surgery, Dr. Broussard consulted * No surgical intervention at this time * Chinyere for sacral decub ID, Dr. Wellington consulted * As per ID, antibiotics should be stopped after two weeks Wound care consult Lab: Gram Negative kendy, proteus mirabilis Medication: * Gentamicin 80mg IVPB HD * Zosyn 2.25gm IVPB Q8H * Linezolid 600mg IVPB Q12H (started 04/14/17) Status: Acute (6) S/P BKA (below knee amputation) Assessment & Plan: General Surgery, Dr. Brosusard---> Help appreciated * Management as per recommendation * BKA (03/30/17) * Bedside debridement for left BKA stump (04/25/17) by Dr. Broussard ID, Dr. Wellington----> Help appreciated * Antibiotics should be stopped after two weeks. Wound care consult Daily dressing changes with santyl Lab: Wound culture: Gram negative kendy; proteus mirabilis, klebsiella pneumonia and vancomycin resistance E.faecium Medications: * Gentamicin 80mg IVPB HD * Zosyn 2.25gm IVPB Q8H * Linezolid 600mg IVPB Q12H Status: Acute (7) Anemia, chronic disease Assessment & Plan: H/H Stable * transfused 2 units of PRBC on HD (04/15/17) * Continue to monitor Medication: * Procrit 10,000 unit IV TTS ( on HD) on this admission, M,W,F Status: Chronic (8) Glaucoma Assessment & Plan: Medications: * Timolol 0.5% OU BID * Latanoprost 0.02 ml OU HS * Brimonidine 1ml OU TID Status: Acute (9) Diabetes mellitus Assessment & Plan: HgbA1C (02/18/17): 8.7 Management/Medication: * Accuchecks * ISS medium dose * Hypoglycemia protocol * D5W at 60mls/hr due to hypoglycemic episodes and decrease PO intake Status: Acute (10) History of CHF (congestive heart failure) Assessment & Plan: Echo (03/09/17): EF=61%, please refer to the full report for complete impression Medication: * Lasix 40mg PO daily Status: Acute (11) Hypertension Assessment & Plan: Medications: * Norvasc 5mg PO daily (Held due to chronic right peripheral edema) * Hydralazine 25mg PO BID Status: Chronic (12) History of hyperlipidemia Assessment & Plan: Crestor 10mg PO HS Status: Acute (13) Prophylactic measure Assessment & Plan: GI: Protonix 40mg PO daily DVT: Heparin 5,000 units SC Q12H PT and OT Disposition: Possible LTAC placement or higher level of subacute care. At this moment, director of casework services and social media senior associate are working on possible placement to LTAC and [facility]. At this moment, patient has been denies at LTAC, however director of casework services/social media senior associate and Dr. Myrick are working for an alternative placement. All management and plan as per Dr. Myrick Status: Acute
--- NOTE | 2017-05-04 18:34 | CP.PCM.PN ---
Subjective - Date & Time of Evaluation Date of Evaluation: 05/04/17 Time of Evaluation: 14:00 - Subjective Subjective: SEEN ON RENAL F/U HAD HER HD EARLIAR TODAY BP WAS LOW ON HD .. WAS GIVEN ALB NO CHANGE IN CLINICAL CONDITION Objective - Vital Signs/Intake and Output Vital Signs (last 24 hours): Temp Pulse Resp BP Pulse Ox 98.1 F 95 H 20 130/90 100 05/04/17 15:47 05/04/17 15:47 05/04/17 15:47 05/04/17 15:47 05/04/17 15:47 - Medications Medications: Current Medications Acetaminophen (Tylenol 325mg Tab) 650 mg PO Q6 PRN PRN Reason: Pain, moderate (4-7) Last Admin: 05/01/17 18:01 Dose: 650 mg Apixaban (Eliquis) 5 mg PO BID [facility] Last Admin: 05/04/17 17:45 Dose: Not Given Brimonidine Tartrate (Alphagan 0.2% Opht) 1 ml OU TID [facility] Last Admin: 05/04/17 17:43 Dose: 1 drop Collagenase (Santyl) 0 gm TOP Q12H [facility] Last Admin: 05/04/17 17:45 Dose: 1 applic Dextrose (Dextrose 50%) 0 ml IV STAT PRN; Protocol PRN Reason: Hypoglycemia Protocol Last Admin: 04/28/17 09:46 Dose: 50 ml Epoetin Maxwell (Procrit) 10,000 unit IV MWF [facility] Last Admin: 05/04/17 11:46 Dose: 10,000 unit Ergocalciferol (Drisdol 50,000 Intl Units Cap) 1 cap PO Q7D [facility] Last Admin: 05/02/17 23:17 Dose: Not Given Furosemide (Lasix) 40 mg PO DAILY [facility] Last Admin: 05/04/17 10:21 Dose: Not Given Glucagon (Glucagen Diagnostic Kit) 1 mg IM STAT PRN; Protocol PRN Reason: Hypoglycemia Protocol Last Admin: 05/02/17 22:26 Dose: 1 mg Hydromorphone HCl (Dilaudid) 0.5 mg IVP Q4H PRN PRN Reason: Pain, severe (8-10) Last Admin: 05/04/17 18:21 Dose: 0.5 mg Linezolid (Zyvox 600mg/300ml D5w) 600 mg in 300 mls @ 200 mls/hr IVPB Q12H [facility] Last Admin: 05/04/17 12:57 Dose: Not Given Gentamicin Sulfate/Sodium Chloride (Gentamicin Iv 80 Mg Premix) 80 mg in 100 mls @ 100 mls/hr IVPB MWF [facility] Last Admin: 05/04/17 08:48 Dose: 100 mls/hr Insulin Glargine (Lantus) 10 unit SC HS [facility] Insulin Human Regular (Novolin R) 0 unit SC ACHS [facility] PRN Reason: Protocol Last Admin: 05/04/17 16:51 Dose: Not Given Latanoprost (Xalatan Opht) 0.02 ml OU HS [facility] Last Admin: 05/03/17 22:04 Dose: 0.02 ml Megestrol Acetate (Megace) 40 mg PO DAILY [facility] Last Admin: 05/04/17 10:21 Dose: Not Given Midodrine (Proamatine) 10 mg PO ONCE PRN PRN Reason: Diastolic blood pressure Last Admin: 04/29/17 09:50 Dose: 10 mg Nystatin (Nystop Topical Powder) 1 gm TOP Q8H [facility] Last Admin: 05/04/17 17:15 Dose: 1 gra Pantoprazole Sodium (Protonix Susp) 40 mg PO DAILY [facility] Last Admin: 05/04/17 10:21 Dose: Not Given Rosuvastatin Calcium (Crestor) 10 mg PO HS [facility] Last Admin: 05/03/17 21:57 Dose: 10 mg Thiamine HCl (Vitamin B1 Inj) 100 mg IV Q8H [facility] Last Admin: 05/04/17 13:47 Dose: 100 mg Timolol Maleate (Timoptic 0.5% [facility]) 1 drop OU BID [facility] Last Admin: 05/04/17 17:43 Dose: 1 drop Vitamin B Complex/Vit C/Folic Acid (Nephro-Alonzo) 1 tab PO 0800 [facility] Last Admin: 05/04/17 09:34 Dose: Not Given - Labs Labs: 05/04/17 12:48 05/04/17 11:55 PT 11.7 SECONDS (9.7-12.2) 04/11/17 18:55 INR 1.0 04/11/17 18:55 APTT 31 SECONDS (21-34) 04/23/17 06:26 Assessment and Plan - Assessment and Plan (Free Text) Assessment: ESRD ON HD M W F ANEMIA OF CKD .. ON EPO SEPSIS ON IVAB MMP P : C/O CURRENT CARE C/O SUPPORTIVS MANAGEMENT
[2017-05-04] MEDS: Latanoprost 2.5 ml Opht Soln OU SCH (22:11)
[2017-05-05] MEDS: Linezolid 600 mg in D5W 300 ml 600 MG/300 ML BAG IVPB SCH ×2 (00:36→13:00)
[2017-05-05] MEDS: Nystatin 100,000 Units/gm Topical Pow(15 gm) TOP SCH ×3 (00:44→18:00)
[2017-05-05] MEDS: Thiamine 100 mg/ml Inj IV SCH ×3 (06:08→21:36)
[2017-05-05] MEDS: Collagenase 250 Units/gm Ointment(30 gm) TOP SCH ×2 (06:09→17:59)
[2017-05-05] MEDS: (Novolin R) Insulin Human Regular 100 units/ml vial SC SCH ×4 (08:30→21:30)
[2017-05-05] MEDS: Multivitamin Vitamin B Complex (Nephro-Vite) Tab PO SCH (09:00)
[2017-05-05 09:05] LABS: RBC URINE 288 /hpf (0-3); URINE BACTERIA MOD (<OCC); URINE BILIRUBIN NEGATIVE (NEGATIVE); URINE BLOOD 2+ (NEGATIVE); URINE COLOR Amber (YELLOW); URINE GLUCOSE (UA) NORMAL (Normal); URINE KETONE TRACE mg/dL (NEGATIVE); URINE LEUKOCYTE ESTERASE 2+ Leu/uL (Negative); URINE PROTEIN 3+ mg/dL (NEGATIVE); URINE UROBILINOGEN NORMAL mg/dL (0.2-1.0); WBC CLUMPS FEW /hpf; WBC URINE 3578 /hpf (0-5)
[2017-05-05] MEDS: Pantoprazole 40 mg Susp UD PO SCH (09:51)
[2017-05-05] MEDS: Brimonidine 0.2% Opth Sol (5ml) OU SCH ×3 (09:52→17:53)
[2017-05-05] MEDS: Dextrose 5%/0.45% NS 1,000 ML IV SCH (10:04)
[2017-05-05] MEDS: HYDROmorphone 0.5 mg/0.5 ml ISec IVP PRN ×2 (10:46→17:40)
[2017-05-05] MEDS ORDERED: Propofol 10 mg/ml Inj (20 ML) ONE (11:23)
[2017-05-05] MEDS ORDERED: Lidocaine Hydrochloride 0 ML INJ ONE (11:23)
[2017-05-05 11:56] LABS: BASO # 0.1 K/uL (0.0-0.2); BASO % 0.6 % (0.0-2.0); EOS % 0.1 % (0.0-4.0); HEMATOCRIT 21.5 % (34.0-47.0); LYMPH # 0.9 K/uL (1.0-4.3); LYMPH % 8.2 % (20.0-40.0); MEAN CELL VOLUME 94.4 fL (81.0-99.0); MEAN CORPUSCULAR HEMOGLOBIN 30.4 pg (27.0-31.0); MEAN CORPUSCULAR HGB CONC 32.2 g/dL (33.0-37.0); MEAN PLATELET VOLUME 8.5 fL (7.2-11.7); MONO # 0.5 K/uL (0.0-0.8); PLATELET COUNT 183 K/uL (130-400); RED CELL DISTRIBUTION WIDTH 18.1 % (11.5-14.5); WHITE BLOOD COUNT 10.9 K/uL (4.8-10.8)
[2017-05-05 12:04] LABS: INR 1.2
[2017-05-05 12:47] LABS: ALB/GLOB RATIO 0.8 (1.0-2.1); BILIRUBIN,TOTAL 0.3 mg/dL (0.2-1.3); CALCIUM 7.2 mg/dl (8.6-10.4); MAGNESIUM 1.8 mg/dL (1.6-2.3); PHOSPHOROUS 2.8 mg/dL (2.5-4.5); POTASSIUM 3.4 mmol/L (3.6-5.2); TOTAL PROTEIN 4.4 g/dL (6.3-8.3)
[2017-05-05 12:51] LABS: NEUTROPHIL 88 % (50-75); TOTAL CELLS COUNTED 100
--- NOTE | 2017-05-05 13:27 | RAD ---
HISTORY: medical clearance COMPARISON: 03/16/2017 portable chest x-ray ; angio chest PE study 04/16/2017 FINDINGS: LUNGS: Bilateral pleural effusions left greater than right. Bibasilar increased opacities consistent with compressive atelectasis -associated pleural effusions. Concomitant infiltrates -not excluded. Right pleural effusion slightly increased -left pleural effusion similar to increased. PLEURA: Bilateral pleural effusions as above. No pneumothorax. CARDIOVASCULAR: Cardiomegaly and pulmonary venous congestion -similar. Right PICC line insertion-tip superior vena cava-similar position. Consider 4 to 5 advancement. Aortic knob calcification OSSEOUS STRUCTURES: No significant abnormalities. VISUALIZED UPPER ABDOMEN: Normal. OTHER FINDINGS: None. IMPRESSION: Cardiomegaly and pulmonary venous congestion similar Bilateral pleural effusions - right effusion slightly increased ; left effusion similar to possibly increased. Inferred bibasilar compressive atelectasis Right PICC line tip SVC consider advancement
[2017-05-05 13:35] LABS: BASO % 0.2 % (0.0-2.0); EOS % 0.1 % (0.0-4.0); HEMATOCRIT 21.9 % (34.0-47.0); LYMPH # 0.8 K/uL (1.0-4.3); LYMPH % 7.5 % (20.0-40.0); MEAN CELL VOLUME 94.1 fL (81.0-99.0); MEAN CORPUSCULAR HEMOGLOBIN 29.1 pg (27.0-31.0); MEAN CORPUSCULAR HGB CONC 30.9 g/dL (33.0-37.0); MEAN PLATELET VOLUME 8.8 fL (7.2-11.7); MONO # 0.6 K/uL (0.0-0.8); MONO % 5.7 % (0.0-10.0); NRBC % 0.1 % (0.0-2.0); RED CELL DISTRIBUTION WIDTH 18.4 % (11.5-14.5)
[2017-05-05] MEDS: Megestrol Acetate 40 mg/ml Cup PO SCH ×2 (14:34→17:40)
--- NOTE | 2017-05-05 18:24 | PN ---
DATE: LOCATION: [facility], [facility]. SUBJECTIVE: This 71 years old female seen initially for GI consultation on 05/04/2017, re-examined again today in the presence of her who signed the consent for PEG insertion due to the patient's very poor oral intake and failure to thrive. The entire chart is reviewed including, but not limited to the most recent lab and radiology study results, current and the previous medication list, current and the previous medical events. Case discussed with the staff at length. Due to the patient's intake of anticoagulant agent today, the PEG procedure has to be rescheduled for tomorrow, awaiting repeat PT and PTT. Patient has mild tachycardia of 104 with blood pressure of 120/74, afebrile, with respiratory rate 20 to 22. No other significant clinical changes reported. IMPRESSION: 1. Malnutrition with hypoalbuminemia. 2. Failure to thrive. 3. Known history of, but not limited to hypertension, hyperlipidemia, end-stage renal disease with depression and severe anxiety syndrome. 4. Anemia, most likely secondary to above. Further recommendation to follow PEG insertion at 8:00 a.m. Karena Arias MD
[2017-05-05] MEDS ORDERED: DiphenhydrAMINE 50 mg/ml Inj IVP STA ×2 (18:36→20:12)
--- NOTE | 2017-05-05 19:52 | CP.PCM.PN ---
Subjective - Date & Time of Evaluation Date of Evaluation: 05/05/17 Time of Evaluation: 15:00 - Subjective Subjective: SEEN ON RENAL F/U SOUND ASLEEP .. IN NAD ON BED SIDE .. VERY POOR APPETITE .. ? NEEDS PEG ANEMIA .. WILL TRANSFUSE 2 U PRBC IN AM ON HD OTHERWISE NO CHANGE IN CLINICAL CONDITIONS Objective - Vital Signs/Intake and Output Vital Signs (last 24 hours): Temp Pulse Resp BP Pulse Ox 97.5 F L 103 H 20 113/68 100 05/05/17 16:00 05/05/17 16:00 05/05/17 16:00 05/05/17 16:00 05/05/17 16:00 Intake and Output: 05/05/17 05/06/17 18:59 06:59 Intake Total 1130 Output Total 150 Balance 980 - Medications Medications: Current Medications Acetaminophen (Tylenol 325mg Tab) 650 mg PO Q6 PRN PRN Reason: Pain, moderate (4-7) Last Admin: 05/01/17 18:01 Dose: 650 mg Apixaban (Eliquis) 5 mg PO BID [facility] Last Admin: 05/05/17 17:42 Dose: 5 mg Brimonidine Tartrate (Alphagan 0.2% Opht) 1 ml OU TID [facility] Last Admin: 05/05/17 17:53 Dose: 1 drop Collagenase (Santyl) 0 gm TOP Q12H [facility] Last Admin: 05/05/17 17:59 Dose: 1 applic Dextrose (Dextrose 50%) 0 ml IV STAT PRN; Protocol PRN Reason: Hypoglycemia Protocol Last Admin: 04/28/17 09:46 Dose: 50 ml Epoetin Maxwell (Procrit) 10,000 unit IV MWF [facility] Last Admin: 05/04/17 11:46 Dose: 10,000 unit Ergocalciferol (Drisdol 50,000 Intl Units Cap) 1 cap PO Q7D [facility] Last Admin: 05/02/17 23:17 Dose: Not Given Furosemide (Lasix) 40 mg PO DAILY [facility] Last Admin: 05/05/17 09:51 Dose: 40 mg Glucagon (Glucagen Diagnostic Kit) 1 mg IM STAT PRN; Protocol PRN Reason: Hypoglycemia Protocol Last Admin: 05/02/17 22:26 Dose: 1 mg Hydromorphone HCl (Dilaudid) 0.5 mg IVP Q4H PRN PRN Reason: Pain, severe (8-10) Last Admin: 05/05/17 17:40 Dose: 0.5 mg Linezolid (Zyvox 600mg/300ml D5w) 600 mg in 300 mls @ 200 mls/hr IVPB Q12H [facility] Last Admin: 05/05/17 13:00 Dose: 200 mls/hr Gentamicin Sulfate/Sodium Chloride (Gentamicin Iv 80 Mg Premix) 80 mg in 100 mls @ 100 mls/hr IVPB MWF [facility] Last Admin: 05/04/17 08:48 Dose: 100 mls/hr Dextrose/Sodium Chloride (Dextrose 5%/0.45% Ns 1000 Ml) 1,000 mls @ 60 mls/hr IV .[id number] [facility] Last Admin: 05/05/17 10:04 Dose: 60 mls/hr Insulin Glargine (Lantus) 10 unit SC HS [facility] Insulin Human Regular (Novolin R) 0 unit SC ACHS [facility] PRN Reason: Protocol Last Admin: 05/05/17 17:41 Dose: 2 unit Latanoprost (Xalatan Opht) 0.02 ml OU HS [facility] Last Admin: 05/04/17 22:11 Dose: 0.02 ml Megestrol Acetate (Megace) 200 mg PO TID [facility] Last Admin: 05/05/17 17:40 Dose: 200 mg Midodrine (Proamatine) 10 mg PO ONCE PRN PRN Reason: Diastolic blood pressure Last Admin: 04/29/17 09:50 Dose: 10 mg Nystatin (Nystop Topical Powder) 1 gm TOP Q8H [facility] Last Admin: 05/05/17 18:00 Dose: 1 gra Pantoprazole Sodium (Protonix Susp) 40 mg PO DAILY [facility] Last Admin: 05/05/17 09:51 Dose: 40 mg Rosuvastatin Calcium (Crestor) 10 mg PO HS [facility] Last Admin: 05/04/17 21:13 Dose: Not Given Thiamine HCl (Vitamin B1 Inj) 100 mg IV Q8H [facility] Last Admin: 05/05/17 13:46 Dose: 100 mg Timolol Maleate (Timoptic 0.5% Ophth Soln) 1 drop OU BID [facility] Last Admin: 05/05/17 17:53 Dose: 1 drop Vitamin B Complex/Vit C/Folic Acid (Nephro-Alonzo) 1 tab PO 0800 [facility] Last Admin: 05/05/17 09:00 Dose: 1 tab - Labs Labs: 05/05/17 13:17 05/05/17 11:49 PT 14.1 SECONDS (9.7-12.2) H 05/05/17 11:49 INR 1.2 05/05/17 11:49 APTT 30 SECONDS (21-34) 05/05/17 11:49 Assessment and Plan - Assessment and Plan (Free Text) Assessment: ESRD ON HD M W F .. TO BE CONTINUED ANEMIA OF CKD .. TRANSFUSE 2 U PRBC ON HD IN AM NEEDS FOR PEG ? MMP P : C/O CURRENT CARE
--- NOTE | 2017-05-05 20:28 | CP.PCM.PN ---
<Josefina Allen - Last Filed: 05/05/17 20:35> Subjective - Date & Time of Evaluation Date of Evaluation: 05/05/17 Time of Evaluation: 07:30 - Subjective Subjective: Medicine Note (PGY-1)---> Dr. Myrick's service Patient was seen and examined at bedside. Patient is clinically unchanged. Unable to evaluate appropriate ROS due to patient's condition. Patient was nausea at bedside this am. Objective - Vital Signs/Intake and Output Vital Signs (last 24 hours): Temp Pulse Resp BP Pulse Ox 97.5 F L 103 H 20 113/68 100 05/05/17 16:00 05/05/17 16:00 05/05/17 16:00 05/05/17 16:00 05/05/17 16:00 Intake and Output: 05/05/17 05/06/17 18:59 06:59 Intake Total 1130 Output Total 150 Balance 980 - Medications Medications: Current Medications Acetaminophen (Tylenol 325mg Tab) 650 mg PO Q6 PRN PRN Reason: Pain, moderate (4-7) Last Admin: 05/01/17 18:01 Dose: 650 mg Apixaban (Eliquis) 5 mg PO BID [facility] Last Admin: 05/05/17 17:42 Dose: 5 mg Brimonidine Tartrate (Alphagan 0.2% Opht) 1 ml OU TID [facility] Last Admin: 05/05/17 17:53 Dose: 1 drop Collagenase (Santyl) 0 gm TOP Q12H [facility] Last Admin: 05/05/17 17:59 Dose: 1 applic Dextrose (Dextrose 50%) 0 ml IV STAT PRN; Protocol PRN Reason: Hypoglycemia Protocol Last Admin: 04/28/17 09:46 Dose: 50 ml Epoetin Maxwell (Procrit) 10,000 unit IV MWF [facility] Last Admin: 05/04/17 11:46 Dose: 10,000 unit Ergocalciferol (Drisdol 50,000 Intl Units Cap) 1 cap PO Q7D [facility] Last Admin: 05/02/17 23:17 Dose: Not Given Furosemide (Lasix) 40 mg PO DAILY [facility] Last Admin: 05/05/17 09:51 Dose: 40 mg Glucagon (Glucagen Diagnostic Kit) 1 mg IM STAT PRN; Protocol PRN Reason: Hypoglycemia Protocol Last Admin: 05/02/17 22:26 Dose: 1 mg Hydromorphone HCl (Dilaudid) 0.5 mg IVP Q4H PRN PRN Reason: Pain, severe (8-10) Last Admin: 05/05/17 17:40 Dose: 0.5 mg Linezolid (Zyvox 600mg/300ml D5w) 600 mg in 300 mls @ 200 mls/hr IVPB Q12H [facility] Last Admin: 05/05/17 13:00 Dose: 200 mls/hr Gentamicin Sulfate/Sodium Chloride (Gentamicin Iv 80 Mg Premix) 80 mg in 100 mls @ 100 mls/hr IVPB MWF [facility] Last Admin: 05/04/17 08:48 Dose: 100 mls/hr Dextrose/Sodium Chloride (Dextrose 5%/0.45% Ns 1000 Ml) 1,000 mls @ 60 mls/hr IV .[id number] [facility] Last Admin: 05/05/17 10:04 Dose: 60 mls/hr Insulin Glargine (Lantus) 10 unit SC [facility] Insulin Human Regular (Novolin R) 0 unit SC ACHS [facility] PRN Reason: Protocol Last Admin: 05/05/17 17:41 Dose: 2 unit Latanoprost (Xalatan Opht) 0.02 ml OU HS [facility] Last Admin: 05/04/17 22:11 Dose: 0.02 ml Megestrol Acetate (Megace) 200 mg PO TID [facility] Last Admin: 05/05/17 17:40 Dose: 200 mg Midodrine (Proamatine) 10 mg PO ONCE PRN PRN Reason: Diastolic blood pressure Last Admin: 04/29/17 09:50 Dose: 10 mg Nystatin (Nystop Topical Powder) 1 gm TOP Q8H [facility] Last Admin: 05/05/17 18:00 Dose: 1 gra Pantoprazole Sodium (Protonix Susp) 40 mg PO DAILY [facility] Last Admin: 05/05/17 09:51 Dose: 40 mg Rosuvastatin Calcium (Crestor) 10 mg PO HS [facility] Last Admin: 05/04/17 21:13 Dose: Not Given Thiamine HCl (Vitamin B1 Inj) 100 mg IV Q8H [facility] Last Admin: 05/05/17 13:46 Dose: 100 mg Timolol Maleate (Timoptic 0.5% Oph Soln) 1 drop OU BID [facility] Last Admin: 05/05/17 17:53 Dose: 1 drop Vitamin B Complex/Vit C/Folic Acid (Nephro-Alonzo) 1 tab PO 0800 [facility] Last Admin: 05/05/17 09:00 Dose: 1 tab - Labs Labs: 05/05/17 13:17 05/05/17 11:49 PT 14.1 SECONDS (9.7-12.2) H 05/05/17 11:49 INR 1.2 05/05/17 11:49 APTT 30 SECONDS (21-34) 05/05/17 11:49 - Constitutional Appears: Non-toxic - Eye Exam Eye Exam: EOMI - ENT Exam ENT Exam: Mucous Membranes Dry - Respiratory Exam Respiratory Exam: NORMAL BREATHING PATTERN - Cardiovascular Exam Cardiovascular Exam: REGULAR RHYTHM, +S1 - GI/Abdominal Exam GI & Abdominal Exam: Soft, Normal Bowel Sounds - Extremities Exam Additional comments: Bilateral UE edema (R>L) Left BKA, Dressing changed with island dressing, 4 x 4 and cleaned, clean, dry and intact Right +2 pitting edema - Neurological Exam Neurological Exam: Alert, Awake. absent: Oriented x3 - Skin Skin Exam: Pallor Assessment and Plan (1) Sepsis Assessment & Plan: Leukocytosis with no bandemia * WBC trending up --> (15.3-05/04/17) * F/u repeat blood culture: no growth On admission: WBC: 21.3, HR: 107 Sacral culture (04/11/17) : Gram negative kendy, proteus mirabilis Blood culture (04/11/17): Gram positive cocci, Staphyl aureus and coag-negative staph, repeat blood culture (05/04/12): negative S/P Left BKA (04/11/17): Gram negative kendy, proteus mirabilis, klebsiella pneumonia and vancomycin resistance E.faecium UA/ UC (05/01/17): Negative Medications/management: * Gentamicin 80mg IVPB HD * Zosyn 2.25gm IVPB Q8H * Linezolid 600mg IVPB Q12H ---> Started on 03/26 * Vancomycin 1gm IVPB on HD---> Discontinued Status: Acute (2) Pulmonary embolism Assessment & Plan: Chest CT angio: Filling defects are noted at both upper lobes pulmonary arteries suggestive of pulmonary embolus. Large bilateral pleural effusion. Mild cardiomegaly. [id number] pericardial effusion. [id number] anasarca. Lower lobe atelectasis due to pleural effusion. Medications: Eliquis 5mg PO BID Status: Acute (3) Serum albumin decreased Assessment & Plan: Possibly secondary to decrease PO intake and appetite Medication/Management: * Encourage PO intake * Supplemental drink: Glucerna TID * Continue to monitor with am labs * Megace 40mg PO daily (Appetite stimulant) * Started on D5w LR @ 60mls/hr due hypoglycemic episode. Disposition: Patient's is no agreeable to PEG tube placement * Dr. Daily consulted - [place] for PEG tube placement tomorrow Status: Acute ( Status: Acute (4) End stage renal disease on dialysis Assessment & Plan: Sport Shoe Spike Assembler, Dr. Ambrose---> Help appreciated * Management as per recommendation Management/Medications: On HD (TTS) ---> MWF ( for this admission) * Via Left Arm shunt * PICC line inserted by IR 03/23/17 - DVT in R upper extremity Ergocalciferol 1 cap PO Q7D Procrit 10,000 unit IV MWF Ferric sodium gluconate 125 mg MWF Nephrovite Eliquis 5mg PO BID; for R upper extremity DVT Status: Chronic (5) Sacral decubitus ulcer, stage III Assessment & Plan: General Surgery, Dr. Broussard consulted * No surgical intervention at this time * Santyl for sacral decub ID, Dr. Wellington consulted * As per ID, antibiotics should be stopped after two weeks Wound care consult Lab: Gram Negative kendy, proteus mirabilis Medication: * Gentamicin 80mg IVPB HD * Zosyn 2.25gm IVPB Q8H * Linezolid 600mg IVPB Q12H (started 04/14/17) Status: Acute (6) S/P BKA (below knee amputation) Assessment & Plan: General Surgery, Dr. Broussard---> Help appreciated * Management as per recommendation * BKA (03/30/17) * Bedside debridement for left BKA stump (04/25/17) by Dr. Broussard ID, Dr. Wellington----> Help appreciated * Antibiotics should be stopped after two weeks. Wound care consult Daily dressing changes with santyl Lab: Wound culture: Gram negative kendy; proteus mirabilis, klebsiella pneumonia and vancomycin resistance E.faecium Medications: * Gentamicin 80mg IVPB HD * Zosyn 2.25gm IVPB Q8H * Linezolid 600mg IVPB Q12H Status: Acute (7) Anemia, chronic disease Assessment & Plan: H/H Unstable * transfused 2 units of PRBC on HD (04/15/17) * Transfuse 2 units of prbc (05/05/2017) * F/u repeat CBC s/p transfusion Medication: * Procrit 10,000 unit IV TTS ( on HD) on this admission, M,W,F Status: Chronic (8) Glaucoma Assessment & Plan: Medications: * Timolol 0.5% OU BID * Latanoprost 0.02 ml OU HS * Brimonidine 1ml OU TID Status: Acute (9) Diabetes mellitus Assessment & Plan: HgbA1C (02/18/17): 8.7 Management/Medication: * Accuchecks * ISS medium dose * Hypoglycemia protocol * D5W at 60mls/hr due to hypoglycemic episodes and decrease PO intake Status: Acute (10) History of CHF (congestive heart failure) Assessment & Plan: Echo (03/09/17): EF=61%, please refer to the full report for complete impression Medication: * Lasix 40mg PO daily Status: Acute (11) Hypertension Assessment & Plan: Medications: * Norvasc 5mg PO daily (Held due to chronic right peripheral edema) * Hydralazine 25mg PO BID Status: Chronic (12) History of hyperlipidemia Assessment & Plan: Crestor 10mg PO HS Status: Acute (13) Prophylactic measure Assessment & Plan: GI: Protonix 40mg PO daily DVT: Heparin 5,000 units SC Q12H PT and OT Disposition: Possible LTAC placement or higher level of subacute care. At this moment, case management associate and social service assistant are working on possible placement to LTAC and [facility]. At this moment, patient has been denies at LTAC, however case management associate/social service assistant and Dr. Myrick are working for an alternative placement. All management and plan as per Dr. Myrick Status: Acute <Benson Myrick Jr. - Last Filed: 05/17/17 13:05> Objective - Vital Signs/Intake and Output Vital Signs (last 24 hours): Temp Pulse Resp BP Pulse Ox 99.5 F 134 H 16 135/48 L 100 05/17/17 08:00 05/17/17 11:00 05/17/17 11:00 05/17/17 11:00 05/17/17 11:00 Intake and Output: 05/17/17 05/17/17 06:59 18:59 Intake Total 1285.3 507.5 Output Total 100 Balance 1185.3 507.5 - Medications Medications: Current Medications Acetaminophen (Tylenol 650mg/20.3ml Solution Ud) 650 mg PO Q6 PRN PRN Reason: Fever >100.4 F Last Admin: 05/16/17 12:23 Dose: 650 mg Albumin Human (Albumin Human 5% (12.5 Gm/250 Ml)) 12.5 gm IV MWF PRN PRN Reason: hypotension Last Admin: 05/15/17 11:45 Dose: 12.5 gm Apixaban (Eliquis) 5 mg PO BID [facility] Last Admin: 05/15/17 19:20 Dose: 5 mg Brimonidine Tartrate (Alphagan 0.2% Opht) 1 ml OU TID [facility] Last Admin: 05/17/17 13:01 Dose: 1 applic Collagenase (Santyl) 0 gm TOP DAILY [facility] Last Admin: 05/17/17 09:54 Dose: 1 applic Epoetin Maxwell (Procrit) 10,000 unit IV MWF [facility] Last Admin: 05/15/17 11:11 Dose: 10,000 unit Ergocalciferol (Drisdol 50,000 Intl Units Cap) 1 cap PO Q7D [facility] Last Admin: 05/16/17 22:02 Dose: 1 cap Hydrocortisone Sodium Succinate (Solu-Cortef) 50 mg IV Q8H [facility] Last Admin: 05/17/17 12:58 Dose: Not Given Linezolid (Zyvox 600mg/300ml D5w) 600 mg in 300 mls @ 200 mls/hr IVPB Q12 [facility] Last Admin: 05/17/17 09:51 Dose: 200 mls/hr Propofol (Diprivan) 1,000 mg in 100 mls @ 1.762 mls/hr IV .Q24H PRN; Protocol; 5 MCG/KG/MIN PRN Reason: TITRATE PER MD ORDER Last Titration: 05/13/17 20:00 Dose: 10 mcg/kg/min, 3.524 mls/hr Micafungin Sodium 100 mg/ (Sodium Chloride) 100 mls @ 100 mls/hr IV Q24H [facility] Last Admin: 05/16/17 19:44 Dose: 100 mls/hr Norepinephrine Bitartrate 8 mg (/ Sodium Chloride) 250 mls @ 7.5 mls/hr IV .Q24H PRN; Protocol; 4 MCG/MIN PRN Reason: TITRATE PER MD ORDER Last Admin: 05/17/17 07:47 Dose: 20 mcg/min, 37.5 mls/hr Gentamicin Sulfate/Sodium Chloride (Gentamicin Iv 80 Mg Premix) 80 mg in 100 mls @ 100 mls/hr IVPB Q24H [facility] Last Admin: 05/17/17 12:56 Dose: 100 mls/hr Insulin Glargine (Lantus) 10 unit SC [facility]HS [facility] Last Admin: 05/17/17 09:52 Dose: Not Given Insulin Human Regular (Novolin R) 0 unit SC Q4 [facility] PRN Reason: Protocol Last Admin: 05/17/17 12:12 Dose: Not Given Latanoprost (Xalatan Opht) 0.02 ml OU HS [facility] Last Admin: 05/16/17 21:22 Dose: 0.02 ml Midodrine (Proamatine) 10 mg PO ONCE PRN PRN Reason: Diastolic blood pressure Last Admin: 05/09/17 11:02 Dose: 10 mg Nystatin (Nystop Topical Powder) 1 gm TOP Q8H [facility] Last Admin: 05/17/17 07:53 Dose: 1 applic Pantoprazole Sodium (Protonix Inj) 40 mg IVP DAILY [facility] Last Admin: 05/17/17 09:50 Dose: 40 mg Potassium Phos/Sodium Phos (Neutra-Phos) 1 pkt PO BIDPC [facility] Last Admin: 05/17/17 09:55 Dose: 1 pkt Rosuvastatin Calcium (Crestor) 10 mg PO HS [facility] Last Admin: 05/16/17 21:11 Dose: 10 mg Thiamine HCl (Vitamin B1 Inj) 100 mg IV Q8H [facility] Last Admin: 05/17/17 05:30 Dose: 100 mg Timolol Maleate (Timoptic 0.5% Oph Soln) 1 drop OU BID [facility] Last Admin: 05/17/17 09:54 Dose: 1 drop Vitamin B Complex/Vit C/Folic Acid (Nephro-Alonzo) 1 tab PO 0800 [facility] Last Admin: 05/17/17 07:53 Dose: 1 tab - Labs Labs: 05/17/17 06:50 05/17/17 06:51 PT 14.8 SECONDS (9.7-12.2) H 05/16/17 06:58 INR 1.3 05/16/17 06:58 APTT 30 SECONDS (21-34) 05/16/17 06:58 Attending/Attestation - Attestation I have personally seen and examined this patient.: Yes I have fully participated in the care of the patient.: Yes I have reviewed all pertinent clinical information, including history, physical exam and plan: Yes Notes (Text): 05/17/17 13:05 Resident note and plan of care reviewed and agreed
[2017-05-05] MEDS: Latanoprost 2.5 ml Opht Soln OU SCH (21:50)
[2017-05-06] MEDS: Nystatin 100,000 Units/gm Topical Pow(15 gm) TOP SCH ×3 (01:11→17:56)
[2017-05-06] MEDS: Linezolid 600 mg in D5W 300 ml 600 MG/300 ML BAG IVPB SCH ×2 (01:49→12:12)
[2017-05-06] MEDS: Dextrose 5%/0.45% NS 1,000 ML IV SCH (04:13)
[2017-05-06] MEDS: Thiamine 100 mg/ml Inj IV SCH ×3 (06:47→22:18)
[2017-05-06] MEDS: Collagenase 250 Units/gm Ointment(30 gm) TOP SCH ×2 (06:48→17:56)
[2017-05-06] MEDS: (Novolin R) Insulin Human Regular 100 units/ml vial SC SCH ×5 (08:30→21:17)
[2017-05-06 08:41] LABS: ALB/GLOB RATIO 1.2 (1.0-2.1); BILIRUBIN,TOTAL 1.4 mg/dL (0.2-1.3); CALCIUM 7.3 mg/dl (8.6-10.4); MAGNESIUM 1.7 mg/dL (1.6-2.3); PHOSPHOROUS 2.8 mg/dL (2.5-4.5); POTASSIUM 3.9 mmol/L (3.6-5.2); TOTAL PROTEIN 3.9 g/dL (6.3-8.3)
[2017-05-06] MEDS: Multivitamin Vitamin B Complex (Nephro-Vite) Tab PO SCH (08:44)
[2017-05-06] MEDS: Epoetin Alfa 10,000 unit/ml Dialysis IV SCH ×2 (09:12→12:29)
[2017-05-06 09:41] LABS: HEMATOCRIT 33.1 % (34.0-47.0); MEAN CELL VOLUME 94.4 fL (81.0-99.0); MEAN CORPUSCULAR HEMOGLOBIN 31.5 pg (27.0-31.0); MEAN CORPUSCULAR HGB CONC 33.4 g/dL (33.0-37.0); MEAN PLATELET VOLUME 9.1 fL (7.2-11.7); RED CELL DISTRIBUTION WIDTH 16.1 % (11.5-14.5); WHITE BLOOD COUNT 10.3 K/uL (4.8-10.8)
--- NOTE | 2017-05-06 09:49 | CP.PCM.PN ---
Subjective - Date & Time of Evaluation Date of Evaluation: 05/06/17 Time of Evaluation: 07:40 - Subjective Subjective: Medicine Note (PGY-1)---> Dr. Myrick's service Patient was seen and examined at bedside. Patient is clinically unchanged. Unable to evaluate appropriate ROS due to patient's condition. Patient was nausea at bedside this am. Patient was very alert this morning. Objective - Vital Signs/Intake and Output Vital Signs (last 24 hours): Temp Pulse Resp BP Pulse Ox 99.0 F 102 H 20 133/78 99 05/06/17 08:57 05/06/17 08:57 05/06/17 08:57 05/06/17 08:57 05/06/17 08:57 Intake and Output: 05/06/17 05/06/17 06:59 18:59 Intake Total 1210 650 Output Total 100 Balance 1110 650 - Medications Medications: Current Medications Acetaminophen (Tylenol 325mg Tab) 650 mg PO Q6 PRN PRN Reason: Pain, moderate (4-7) Last Admin: 05/01/17 18:01 Dose: 650 mg Apixaban (Eliquis) 5 mg PO BID [facility] Last Admin: 05/05/17 17:42 Dose: 5 mg Brimonidine Tartrate (Alphagan 0.2% Opht) 1 ml OU TID [facility] Last Admin: 05/05/17 17:53 Dose: 1 drop Collagenase (Santyl) 0 gm TOP Q12H [facility] Last Admin: 05/06/17 06:48 Dose: 1 applic Dextrose (Dextrose 50%) 0 ml IV STAT PRN; Protocol PRN Reason: Hypoglycemia Protocol Last Admin: 04/28/17 09:46 Dose: 50 ml Epoetin Maxwell (Procrit) 10,000 unit IV MWF [facility] Last Admin: 05/04/17 11:46 Dose: 10,000 unit Ergocalciferol (Drisdol 50,000 Intl Units Cap) 1 cap PO Q7D [facility] Last Admin: 05/02/17 23:17 Dose: Not Given Furosemide (Lasix) 40 mg PO DAILY [facility] Last Admin: 05/05/17 09:51 Dose: 40 mg Glucagon (Glucagen Diagnostic Kit) 1 mg IM STAT PRN; Protocol PRN Reason: Hypoglycemia Protocol Last Admin: 05/02/17 22:26 Dose: 1 mg Hydromorphone HCl (Dilaudid) 0.5 mg IVP Q4H PRN PRN Reason: Pain, severe (8-10) Last Admin: 05/05/17 17:40 Dose: 0.5 mg Linezolid (Zyvox 600mg/300ml D5w) 600 mg in 300 mls @ 200 mls/hr IVPB Q12H [facility] Last Admin: 05/06/17 01:49 Dose: Not Given Gentamicin Sulfate/Sodium Chloride (Gentamicin Iv 80 Mg Premix) 80 mg in 100 mls @ 100 mls/hr IVPB MWF [facility] Last Admin: 05/04/17 08:48 Dose: 100 mls/hr Dextrose/Sodium Chloride (Dextrose 5%/0.45% Ns 1000 Ml) 1,000 mls @ 60 mls/hr IV .[id number] [facility] Last Admin: 05/06/17 04:13 Dose: Not Given Insulin Glargine (Lantus) 10 unit SC HS [facility] Insulin Human Regular (Novolin R) 0 unit SC ACHS [facility] PRN Reason: Protocol Last Admin: 05/06/17 09:24 Dose: 2 unit Latanoprost (Xalatan Opht) 0.02 ml OU HS [facility] Last Admin: 05/05/17 21:50 Dose: Not Given Megestrol Acetate (Megace) 200 mg PO TID [facility] Last Admin: 05/05/17 17:40 Dose: 200 mg Midodrine (Proamatine) 10 mg PO ONCE PRN PRN Reason: Diastolic blood pressure Last Admin: 04/29/17 09:50 Dose: 10 mg Nystatin (Nystop Topical Powder) 1 gm TOP Q8H [facility] Last Admin: 05/06/17 08:43 Dose: 1 gra Pantoprazole Sodium (Protonix Susp) 40 mg PO DAILY [facility] Last Admin: 05/05/17 09:51 Dose: 40 mg Rosuvastatin Calcium (Crestor) 10 mg PO HS [facility] Last Admin: 05/05/17 21:35 Dose: 10 mg Thiamine HCl (Vitamin B1 Inj) 100 mg IV Q8H [facility] Last Admin: 05/06/17 06:47 Dose: 100 mg Timolol Maleate (Timoptic 0.5% Ophth Soln) 1 drop OU BID [facility] Last Admin: 05/05/17 17:53 Dose: 1 drop Vitamin B Complex/Vit C/Folic Acid (Nephro-Alonzo) 1 tab PO 0800 [facility] Last Admin: 05/06/17 08:44 Dose: Not Given - Labs Labs: 05/05/17 13:17 05/06/17 08:07 PT 14.1 SECONDS (9.7-12.2) H 05/05/17 11:49 INR 1.2 05/05/17 11:49 APTT 30 SECONDS (21-34) 05/05/17 11:49 - Constitutional Appears: No Acute Distress - Head Exam Head Exam: ATRAUMATIC - Eye Exam Eye Exam: EOMI - ENT Exam ENT Exam: Mucous Membranes Dry - Respiratory Exam Respiratory Exam: NORMAL BREATHING PATTERN - Cardiovascular Exam Cardiovascular Exam: REGULAR RHYTHM, +S1, +S2 - GI/Abdominal Exam GI & Abdominal Exam: Soft, Normal Bowel Sounds. absent: Tenderness - Extremities Exam Additional comments: Bilateral UE edema (R>L) Left BKA, Dressing changed with island dressing, 4 x 4 and cleaned, clean, dry and intact Right +2 pitting edema - Neurological Exam Neurological Exam: Alert, Awake - Psychiatric Exam Psychiatric exam: Anxious, Depressed, Flat Affect - Skin Skin Exam: Normal Color Assessment and Plan (1) Sepsis Assessment & Plan: Leukocytosis with no bandemia * WBC trending down --> (15.3-05/04/17)---> 10.8 (05/06/17) * F/u repeat blood culture: no growth On admission: WBC: 21.3, HR: 107 Sacral culture (04/11/17) : Gram negative kendy, proteus mirabilis Blood culture (04/11/17): Gram positive cocci, Staphyl aureus and coag-negative staph, repeat blood culture (05/04/12): negative S/P Left BKA (04/11/17): Gram negative kendy, proteus mirabilis, klebsiella pneumonia and vancomycin resistance E.faecium UA/ UC (05/01/17): Negative Medications/management: * Gentamicin 80mg IVPB HD * Zosyn 2.25gm IVPB Q8H * Linezolid 600mg IVPB Q12H ---> Started on 03/26 * Vancomycin 1gm IVPB on HD---> Discontinued Status: Acute (2) Pulmonary embolism Assessment & Plan: Chest CT angio: Filling defects are noted at both upper lobes pulmonary arteries suggestive of pulmonary embolus. Large bilateral pleural effusion. Mild cardiomegaly. [id number] pericardial effusion. [id number] anasarca. Lower lobe atelectasis due to pleural effusion. Medications: Eliquis 5mg PO BID Status: Acute (3) Serum albumin decreased Assessment & Plan: Possibly secondary to decrease PO intake and appetite Medication/Management: * Encourage PO intake * Supplemental drink: Glucerna TID * Continue to monitor with am labs * Megace 200mg PO TID (Appetite stimulant) * Started on D5w LR @ 60mls/hr due hypoglycemic episode. Dr. Daily consulted-----> Help appreciated ( For PEG tube placement) - S/P PEG tube placement POD#1 Status: Acute (4) End stage renal disease on dialysis Assessment & Plan: Audiology Technician, Dr. Ambrose---> Help appreciated * Management as per recommendation Management/Medications: On HD (TTS) ---> MWF ( for this admission) * Via Left Arm shunt * PICC line inserted by IR 03/23/17 - DVT in R upper extremity Ergocalciferol 1 cap PO Q7D Procrit 10,000 unit IV MWF Ferric sodium gluconate 125 mg MWF Nephrovite Eliquis 5mg PO BID; for R upper extremity DVT Status: Chronic (5) Sacral decubitus ulcer, stage III Assessment & Plan: eneral Surgery, Dr. Broussard consulted * No surgical intervention at this time * Chinyere for sacral decub ID, Dr. Wellington consulted * As per ID, antibiotics should be stopped after two weeks Wound care consult Lab: Gram Negative kendy, proteus mirabilis Medication: * Gentamicin 80mg IVPB HD * Zosyn 2.25gm IVPB Q8H * Linezolid 600mg IVPB Q12H (started 04/14/17) Status: Acute (6) S/P BKA (below knee amputation) Assessment & Plan: General Surgery, Dr. Broussard---> Help appreciated * Management as per recommendation * BKA (03/30/17) * Bedside debridement for left BKA stump (04/25/17) by Dr. Broussard ID, Dr. Wellington----> Help appreciated * Antibiotics should be stopped after two weeks. Wound care consult Daily dressing changes with santyl Lab: Wound culture: Gram negative kendy; proteus mirabilis, klebsiella pneumonia and vancomycin resistance E.faecium Medications: * Gentamicin 80mg IVPB HD * Zosyn 2.25gm IVPB Q8H * Linezolid 600mg IVPB Q12H Status: Acute (7) Anemia, chronic disease Assessment & Plan: H/H stable * transfused 2 units of PRBC on HD (04/15/17) * Transfuse 2 units of prbc (05/05/2017)---> repeat H/H post transfusion (11.0/ 33.1) Medication: * Procrit 10,000 unit IV TTS ( on HD) on this admission, M,W,F Status: Chronic (8) Glaucoma Assessment & Plan: Medications: * Timolol 0.5% OU BID * Latanoprost 0.02 ml OU HS * Brimonidine 1ml OU TID Status: Acute (9) Diabetes mellitus Assessment & Plan: HgbA1C (02/18/17): 8.7 Management/Medication: * Accuchecks * ISS medium dose * Hypoglycemia protocol * D5W at 60mls/hr due to hypoglycemic episodes and decrease PO intake Status: Acute (10) History of CHF (congestive heart failure) Assessment & Plan: Echo (03/09/17): EF=61%, please refer to the full report for complete impression Medication: * Lasix 40mg PO daily Status: Acute (11) Hypertension Assessment & Plan: Medications: * Norvasc 5mg PO daily (Held due to chronic right peripheral edema) * Hydralazine 25mg PO BID Status: Chronic (12) History of hyperlipidemia Assessment & Plan: Crestor 10mg PO HS Status: Acute (13) Prophylactic measure Assessment & Plan: GI: Protonix 40mg PO daily DVT: Heparin 5,000 units SC Q12H PT and OT Disposition: Possible LTAC placement or higher level of subacute care. At this time, patient has been denied for LTAC placement, however case management assistant/protective services social worker and Dr. Myrick are working for an alternative placement. All management and plan as per Dr. Myrick Status: Acute
[2017-05-06] MEDS: Gentamicin 80 mg in 0.9% NS 80 MG/100 ML BAG IVPB SCH (10:00)
[2017-05-06] MEDS: Megestrol Acetate 40 mg/ml Cup PO SCH ×3 (10:11→17:55)
[2017-05-06] MEDS: Brimonidine 0.2% Opth Sol (5ml) OU SCH ×3 (10:11→17:57)
[2017-05-06] MEDS: Pantoprazole 40 mg Susp UD PO SCH (10:12)
[2017-05-06] MEDS ORDERED: Propofol 10 mg/ml Inj (20 ML) ONE (10:18)
[2017-05-06] MEDS ORDERED: Lidocaine Hydrochloride 5 ML INJ ONE (10:19)
[2017-05-06] MEDS ORDERED: Lactated Ringer's 500 ML IV ONE (10:29)
[2017-05-06] MEDS ORDERED: DiphenhydrAMINE 50 mg/ml Inj IVP STA (12:13)
[2017-05-06 13:10] LABS: ALB/GLOB RATIO 0.8 (1.0-2.1); BILIRUBIN,TOTAL 0.9 mg/dL (0.2-1.3); CALCIUM 7.5 mg/dl (8.6-10.4); MAGNESIUM 1.7 mg/dL (1.6-2.3); PHOSPHOROUS 2.1 mg/dL (2.5-4.5); POTASSIUM 3.5 mmol/L (3.6-5.2); TOTAL PROTEIN 5.5 g/dL (6.3-8.3)
[2017-05-06] MEDS: HYDROmorphone 0.5 mg/0.5 ml ISec IVP PRN ×2 (15:47→20:05)
--- NOTE | 2017-05-06 22:31 | CP.PCM.PN ---
Subjective - Date & Time of Evaluation Date of Evaluation: 05/06/17 Time of Evaluation: 14:00 - Subjective Subjective: SEEN ON RENAL F/U RECIEVED HD ALONG WITH 2 UNITS PRBC S/P PEG INSERTION ALERT RESPONSIVE WITH SLOW MENTATION Objective - Vital Signs/Intake and Output Vital Signs (last 24 hours): Temp Pulse Resp BP Pulse Ox 97.9 F 98 H 18 107/51 L 100 05/06/17 15:23 05/06/17 18:22 05/06/17 15:23 05/06/17 15:23 05/06/17 15:23 Intake and Output: 05/06/17 05/07/17 18:59 06:59 Intake Total 720 Output Total 50 Balance 670 - Medications Medications: Current Medications Acetaminophen (Tylenol 325mg Tab) 650 mg PO Q6 PRN PRN Reason: Pain, moderate (4-7) Last Admin: 05/01/17 18:01 Dose: 650 mg Apixaban (Eliquis) 5 mg PO BID [facility] Last Admin: 05/05/17 17:42 Dose: 5 mg Brimonidine Tartrate (Alphagan 0.2% Opht) 1 ml OU TID [facility] Last Admin: 05/06/17 17:57 Dose: 1 drop Collagenase (Santyl) 0 gm TOP Q12H [facility] Last Admin: 05/06/17 17:56 Dose: 1 applic Dextrose (Dextrose 50%) 0 ml IV STAT PRN; Protocol PRN Reason: Hypoglycemia Protocol Last Admin: 04/28/17 09:46 Dose: 50 ml Epoetin Maxwell (Procrit) 10,000 unit IV MWF [facility] Last Admin: 05/06/17 12:29 Dose: 10,000 unit Ergocalciferol (Drisdol 50,000 Intl Units Cap) 1 cap PO Q7D [facility] Last Admin: 05/02/17 23:17 Dose: Not Given Furosemide (Lasix) 40 mg PO DAILY [facility] Last Admin: 05/06/17 10:11 Dose: Not Given Glucagon (Glucagen Diagnostic Kit) 1 mg IM STAT PRN; Protocol PRN Reason: Hypoglycemia Protocol Last Admin: 05/02/17 22:26 Dose: 1 mg Hydromorphone HCl (Dilaudid) 0.5 mg IVP Q4H PRN PRN Reason: Pain, severe (8-10) Last Admin: 05/06/17 20:05 Dose: 0.5 mg Linezolid (Zyvox 600mg/300ml D5w) 600 mg in 300 mls @ 200 mls/hr IVPB Q12H [facility] Stop: 05/08/17 23:00 Last Admin: 05/06/17 12:12 Dose: Not Given Gentamicin Sulfate/Sodium Chloride (Gentamicin Iv 80 Mg Premix) 80 mg in 100 mls @ 100 mls/hr IVPB MWF [facility] Last Admin: 05/06/17 10:00 Dose: Not Given Dextrose/Sodium Chloride (Dextrose 5%/0.45% Ns 1000 Ml) 1,000 mls @ 60 mls/hr IV .[id number] [facility] Last Admin: 05/06/17 04:13 Dose: Not Given Ceftazidime 1 gm/ Sodium (Chloride) 100 mls @ 100 mls/hr IV DAILY [facility] Last Admin: 05/06/17 10:47 Dose: Not Given Insulin Glargine (Lantus) 10 unit SC HS [facility] Insulin Human Regular (Novolin R) [address] [facility] PRN Reason: Protocol Last Admin: 05/06/17 21:17 Dose: Not Given Latanoprost (Xalatan Opht) 0.02 ml OU HS [facility] Last Admin: 05/05/17 21:50 Dose: Not Given Megestrol Acetate (Megace) 200 mg PO TID [facility] Last Admin: 05/06/17 17:55 Dose: 200 mg Midodrine (Proamatine) 10 mg PO ONCE PRN PRN Reason: Diastolic blood pressure Last Admin: 04/29/17 09:50 Dose: 10 mg Nystatin (Nystop Topical Powder) 1 gm TOP Q8H [facility] Last Admin: 05/06/17 17:56 Dose: 1 gra Pantoprazole Sodium (Protonix Susp) 40 mg PO DAILY [facility] Last Admin: 05/06/17 10:12 Dose: Not Given Rosuvastatin Calcium (Crestor) 10 mg PO HS [facility] Last Admin: 05/06/17 22:18 Dose: 10 mg Thiamine HCl (Vitamin B1 Inj) 100 mg IV Q8H [facility] Last Admin: 05/06/17 22:18 Dose: 100 mg Timolol Maleate (Timoptic 0.5% Ophth Soln) 1 drop OU BID [facility] Last Admin: 05/06/17 17:57 Dose: 1 drop Vitamin B Complex/Vit C/Folic Acid (Nephro-Alonzo) 1 tab PO 0800 [facility] Last Admin: 05/06/17 08:44 Dose: Not Given - Labs Labs: 05/06/17 09:27 05/06/17 12:38 PT 14.1 SECONDS (9.7-12.2) H 05/05/17 11:49 INR 1.2 05/05/17 11:49 APTT 30 SECONDS (21-34) 05/05/17 11:49 Assessment and Plan - Assessment and Plan (Free Text) Assessment: ESRD ON HD M W F ANEMIA OF CKD .. ON EPO AND VENOFER RECIEVED 2 U PRBC S/P PEG P : C/O CURRENT CARE
[2017-05-06] MEDS: Latanoprost 2.5 ml Opht Soln OU SCH (22:34)
[2017-05-07] MEDS: Nystatin 100,000 Units/gm Topical Pow(15 gm) TOP SCH ×4 (00:04→23:22)
[2017-05-07] MEDS: Thiamine 100 mg/ml Inj IV SCH ×3 (05:36→21:37)
[2017-05-07] MEDS: HYDROmorphone 0.5 mg/0.5 ml ISec IVP PRN ×3 (05:36→23:20)
[2017-05-07] MEDS: Collagenase 250 Units/gm Ointment(30 gm) TOP SCH ×2 (05:41→18:29)
--- NOTE | 2017-05-07 06:03 | CON ---
DATE: 05/05/[address] Karena Arias to Dr. Myrick. I was called for a GI consultation by the admitting MD initially on 05/04/2017. The patient is seen at that time in the presence of her , then subsequently seen for official consultation on 05/05/2017. The entire chart is reviewed including, but not limited to the most recent lab and radiology study results, current and the previous medication lists, current and the previous medical events, allergy to medication list, as well as all the available current and the previous medical records. Short progress note was left in the chart at that time. HISTORY OF PRESENT ILLNESS: This is a 71-year-old female, resident of a senior care, was seen initially in the Emergency Room due to mental status, post left leg BKA amputation, reported to have very poor oral intake, failure to thrive with dysphagia, with reported recurrent pain encompassing her left leg. Since admission, the patient's oral intake had been much less than before, for which I was called for GI consultation for evaluation of her dysphagia, failure to thrive, and potential PEG insertion. The patient's agreed. The patient also had intermittent periods of mild semi-confusion, agitation, and reported syncopal episodes before. As per records, no reported chest pain, palpitations or significant shortness of breath. PAST MEDICAL HISTORY: Including, but not limited to; 1. Hypertension, congestive heart failure, hyperlipidemia with diabetes mellitus. 2. Known history of depression and severe anxiety syndrome. 3. Chronic renal failure, with end-stage renal disease. 4. Status post appendectomy. 5. Status post below-knee amputation of the left leg. FAMILY HISTORY: Unknown. SOCIAL HISTORY: Reported history of alcohol intake, with no substance abuse. CURRENT MEDICATION: Medication lists were reviewed. ALLERGIES TO MEDICATION: LIST WAS REVIEWED. LABORATORY DATA: Initial blood work at the time of admission showed low hemoglobin of 8.6 with hematocrit of 27.9 with leukocytosis. The patient had been on some antibiotics with low sodium of 124, low potassium of 3.4, with mildly elevated BUN and increased creatinine to 3.318. There is subsequent drop of total protein and albumin with subsequent drop of hemoglobin and hematocrit since admission. PHYSICAL EXAMINATION: GENERAL: A 71-year-old female, seen and examined for GI consultation in the presence of her as well as the staff in the floor, with periods of semi-confusion and mild disorientation. VITAL SIGNS: Afebrile with pulse of 82, respiratory rate 16 to 18, blood pressure 160/72. HEENT: Showed very dry oral mucous membrane. Nonicteric sclerae. LUNGS: Few scattered crepitation with decreased air entry at bases bilaterally. LYMPH NODES: No lymphadenitis or lymphadenopathy. HEART: Positive S1 and S2. ABDOMEN: Soft. Bowel sounds are present with slight distension. No mass or organomegaly could be appreciated. No rebound tenderness or guarding. EXTREMITIES: With evidence of status post left leg below-knee amputation with mild edematous changes on the right leg. No clubbing. No cyanosis. NEUROLOGIC: No other new reported neurological deficits, sensory or motor. IMPRESSION: 1. Malnutrition with hypoalbuminemia. 2. Failure to thrive with reported dysphagia. 3. Electrolyte imbalance. 4. Initial diagnosis of septicemia. post left lower extremity below-knee amputation. 5. Multiple past medical history including, but not limited to hyperlipidemia, hypertension, diabetes mellitus, congestive heart failure. 6. Known history of severe anxiety syndrome. 7. End-stage renal disease. 8. Status post appendectomy by history. 9. Electrolyte imbalance with hyponatremia and hypokalemia by the patient's history. 10. The patient is a candidate for a PEG tube insertion. 11. Correct any underlying coagulopathy as needed. SUGGESTIONS: 1. Agree with your plan. 2. Peripheral hyperalimentation in coordination with the Nephrology lifestyle consultant on the case. 3. . 4. The patient is to be scheduled for PEG insertion. 5. Further recommendations to follow. 6. This case was discussed at length with Dr. Myrick before and after my consultation. Thank you for letting me participate in your patient's case management. Further recommendation to follow post PEG insertion. Karena Arias MD
[2017-05-07] MEDS: (Novolin R) Insulin Human Regular 100 units/ml vial SC SCH ×4 (07:05→21:32)
[2017-05-07] MEDS: Multivitamin Vitamin B Complex (Nephro-Vite) Tab PO SCH (08:00)
[2017-05-07 08:27] LABS: HEMATOCRIT 31.2 % (34.0-47.0); MEAN CELL VOLUME 94.4 fL (81.0-99.0); MEAN CORPUSCULAR HEMOGLOBIN 30.8 pg (27.0-31.0); MEAN CORPUSCULAR HGB CONC 32.7 g/dL (33.0-37.0); MEAN PLATELET VOLUME 9.1 fL (7.2-11.7); RED CELL DISTRIBUTION WIDTH 16.6 % (11.5-14.5); WHITE BLOOD COUNT 8.1 K/uL (4.8-10.8)
[2017-05-07 08:52] LABS: ALB/GLOB RATIO 1.2 (1.0-2.1); BILIRUBIN,TOTAL 0.6 mg/dL (0.2-1.3); CALCIUM 7.3 mg/dl (8.6-10.4); MAGNESIUM 1.7 mg/dL (1.6-2.3); PHOSPHOROUS 2.1 mg/dL (2.5-4.5); POTASSIUM 3.4 mmol/L (3.6-5.2); TOTAL PROTEIN 3.9 g/dL (6.3-8.3)
[2017-05-07] MEDS: Pantoprazole 40 mg Susp UD PO SCH (10:03)
[2017-05-07] MEDS: Megestrol Acetate 40 mg/ml Cup PO SCH ×3 (10:03→18:28)
[2017-05-07] MEDS: Brimonidine 0.2% Opth Sol (5ml) OU SCH ×3 (10:07→18:29)
--- NOTE | 2017-05-07 10:57 | CP.PCM.PN ---
Subjective - Date & Time of Evaluation Date of Evaluation: 05/07/17 Time of Evaluation: 07:30 - Subjective Subjective: Medicine Note (PGY-1)---> Dr. Myrick's service Patient was seen and examined at bedside. As per nursing, patient had black stool overnight, which was also noted by GI, Dr. Daily, during PEG procedure. Unable to evaluate appropriate ROS due to patient's condition; patient does not verbalize much. Objective - Vital Signs/Intake and Output Vital Signs (last 24 hours): Temp Pulse Resp BP Pulse Ox 98.7 F 101 H 18 112/62 99 05/07/17 08:09 05/07/17 08:09 05/07/17 08:09 05/07/17 10:03 05/07/17 08:09 Intake and Output: 05/07/17 05/07/17 06:59 18:59 Intake Total 150 240 Output Total 25 Balance 125 240 - Medications Medications: Current Medications Acetaminophen (Tylenol 325mg Tab) 650 mg PO Q6 PRN PRN Reason: Pain, moderate (4-7) Last Admin: 05/01/17 18:01 Dose: 650 mg Apixaban (Eliquis) 5 mg PO BID [facility] Last Admin: 05/07/17 10:05 Dose: Not Given Brimonidine Tartrate (Alphagan 0.2% Opht) 1 ml OU TID [facility] Last Admin: 05/07/17 10:07 Dose: 1 drop Collagenase (Santyl) 0 gm TOP Q12H [facility] Last Admin: 05/07/17 05:41 Dose: 1 applic Dextrose (Dextrose 50%) 0 ml IV STAT PRN; Protocol PRN Reason: Hypoglycemia Protocol Last Admin: 04/28/17 09:46 Dose: 50 ml Epoetin Maxwell (Procrit) 10,000 unit IV MWF [facility] Last Admin: 05/06/17 12:29 Dose: 10,000 unit Ergocalciferol (Drisdol 50,000 Intl Units Cap) 1 cap PO Q7D [facility] Last Admin: 05/02/17 23:17 Dose: Not Given Furosemide (Lasix) 40 mg PO DAILY [facility] Last Admin: 05/07/17 10:03 Dose: 40 mg Glucagon (Glucagen Diagnostic Kit) 1 mg IM STAT PRN; Protocol PRN Reason: Hypoglycemia Protocol Last Admin: 05/02/17 22:26 Dose: 1 mg Hydromorphone HCl (Dilaudid) 0.5 mg IVP Q4H PRN PRN Reason: Pain, severe (8-10) Last Admin: 05/07/17 05:36 Dose: 0.5 mg Linezolid (Zyvox 600mg/300ml D5w) 600 mg in 300 mls @ 200 mls/hr IVPB Q12H [facility] Stop: 05/08/17 23:00 Last Admin: 05/07/17 00:00 Dose: 200 mls/hr Gentamicin Sulfate/Sodium Chloride (Gentamicin Iv 80 Mg Premix) 80 mg in 100 mls @ 100 mls/hr IVPB MWF [facility] Last Admin: 05/06/17 10:00 Dose: Not Given Dextrose/Sodium Chloride (Dextrose 5%/0.45% Ns 1000 Ml) 1,000 mls @ 60 mls/hr IV .[id number] [facility] Last Admin: 05/06/17 04:13 Dose: Not Given Ceftazidime 1 gm/ Sodium (Chloride) 100 mls @ 100 mls/hr IV DAILY [facility] Last Admin: 05/07/17 10:04 Dose: 100 mls/hr Insulin Glargine (Lantus) 10 unit SC HS [facility] Insulin Human Regular (Novolin R) 0 unit SC ACHS [facility] PRN Reason: Protocol Last Admin: 05/07/17 07:05 Dose: 10 unit Latanoprost (Xalatan Opht) 0.02 ml OU HS [facility] Last Admin: 05/06/17 22:34 Dose: 0.02 ml Megestrol Acetate (Megace) 200 mg PO TID [facility] Last Admin: 05/07/17 10:03 Dose: 200 mg Midodrine (Proamatine) 10 mg PO ONCE PRN PRN Reason: Diastolic blood pressure Last Admin: 04/29/17 09:50 Dose: 10 mg Nystatin (Nystop Topical Powder) 1 gm TOP Q8H [facility] Last Admin: 05/07/17 08:06 Dose: 1 gra Pantoprazole Sodium (Protonix Susp) 40 mg PO DAILY [facility] Last Admin: 05/07/17 10:03 Dose: 40 mg Rosuvastatin Calcium (Crestor) 10 mg PO HS [facility] Last Admin: 05/06/17 22:18 Dose: 10 mg Thiamine HCl (Vitamin B1 Inj) 100 mg IV Q8H [facility] Last Admin: 05/07/17 05:36 Dose: 100 mg Timolol Maleate (Timoptic 0.5% Ophth Soln) 1 drop OU BID [facility] Last Admin: 05/07/17 10:07 Dose: 1 drop Vitamin B Complex/Vit C/Folic Acid (Nephro-Alonzo) 1 tab PO 0800 [facility] Last Admin: 05/07/17 08:00 Dose: Not Given - Labs Labs: 05/07/17 08:15 05/07/17 08:15 PT 14.1 SECONDS (9.7-12.2) H 05/05/17 11:49 INR 1.2 05/05/17 11:49 APTT 30 SECONDS (21-34) 05/05/17 11:49 - Constitutional Appears: Well, No Acute Distress - Head Exam Head Exam: ATRAUMATIC - Eye Exam Eye Exam: EOMI - ENT Exam ENT Exam: Mucous Membranes Dry - Respiratory Exam Respiratory Exam: NORMAL BREATHING PATTERN Additional comments: Examination limited due to patient's condition Lungs are clear anteriorly and b/l posterior upper lobe ON 2L NC - GI/Abdominal Exam GI & Abdominal Exam: Soft, Normal Bowel Sounds Additional comments: s/p PEG tube PPD#1, PEG tube in place, dressing is clean and intact - Extremities Exam Additional comments: Bilateral UE edema (R>L) Left BKA, Dressing changed with island dressing, 4 x 4 and cleaned, clean, dry and intact Right +2 pitting edema - Neurological Exam Neurological Exam: Awake - Psychiatric Exam Psychiatric exam: Depressed, Flat Affect - Skin Skin Exam: Normal Color Assessment and Plan (1) Sepsis Assessment & Plan: ID consult, Dr. Wellington---> Help appreciated Recommended lumbar spine CT without contrast to r/o osteomyelitis/ r/o source of infection: * Lumbar Spine CT: No fracture or spondylolisthesis or severe spinal stenosis identified. No gross disc herniation however MR in evaluating the intervertebral discs than CT and can be performed if clinically warranted. Latter recess stenosis symmetric at L4-5 caused by generalized disc bulging without causing generalized central canal stenosis overall. Stable likely nonaggressive bone lesion anterior segment superior endplate L4. Leukocytosis with no bandemia * WBC trending down --> (15.3-05/04/17)---> 10.8 (05/06/17) * repeat blood culture: no growth On admission: WBC: 21.3, HR: 107 Sacral culture (04/11/17) : Gram negative kendy, proteus mirabilis Blood culture (04/11/17): Gram positive cocci, Staphyl aureus and coag-negative staph, repeat blood culture (05/04/12): negative S/P Left BKA (04/11/17): Gram negative kendy, proteus mirabilis, klebsiella pneumonia and vancomycin resistance E.faecium UA/ UC (05/01/17): Negative Medications/management: * Gentamicin 80mg IVPB HD * Zosyn 2.25gm IVPB Q8H * Linezolid 600mg IVPB Q12H ---> Started on 03/26 * Vancomycin 1gm IVPB on HD---> Discontinued Status: Acute (2) Pulmonary embolism Assessment & Plan: Chest CT angio: Filling defects are noted at both upper lobes pulmonary arteries suggestive of pulmonary embolus. Large bilateral pleural effusion. Mild cardiomegaly. [id number] pericardial effusion. [id number] anasarca. Lower lobe atelectasis due to pleural effusion. Medications: Eliquis 5mg PO BID (Held due to black stool, as per conversation with Dr. Daily and Patient's nurse, TARI, hold eliquis dose till Thursday) Status: Acute (3) Serum albumin decreased Assessment & Plan: Possibly secondary to decrease PO intake and appetite Medication/Management: * Still encourage PO intake * Supplemental drink: Glucerna TID * Continue to monitor with am labs * Megace 200mg PO TID (Appetite stimulant) Dr. Daily consulted-----> Help appreciated ( For PEG tube placement) - S/P PEG tube placement POD#1 - PEG tube in use, tube feeding in process Status: Acute (4) End stage renal disease on dialysis Assessment & Plan: News Analyst, Dr. Ambrose---> Help appreciated * Management as per recommendation Management/Medications: On HD (TTS) ---> MWF ( for this admission) * Via Left Arm shunt * PICC line inserted by IR 03/23/17 - DVT in R upper extremity Ergocalciferol 1 cap PO Q7D Procrit 10,000 unit IV MWF Ferric sodium gluconate 125 mg MWF Nephrovite Eliquis 5mg PO BID; for R upper extremity DVT ( Held due to black stool, as per conversation with Dr. Daily and Patient's nurse, TARI, hold eliquis dose till Thursday) Status: Chronic (5) Sacral decubitus ulcer, stage III Assessment & Plan: general Surgery, Dr. Broussard consulted * No surgical intervention at this time * Santyl for sacral decub ID, Dr. Wellington consulted * As per ID, antibiotics should be stopped after two weeks * F/u lumbar spine CT to r/o osteomyelitis Wound care consult Lab: Gram Negative kendy, proteus mirabilis Medication: * Gentamicin 80mg IVPB HD---->Stop 05/08/17 * Linezolid 600mg IVPB Q12H (started 04/14/17)---> Stop 05/08/17 Status: Acute (6) S/P BKA (below knee amputation) Assessment & Plan: General Surgery, Dr. Broussard---> Help appreciated * Management as per recommendation * BKA (03/30/17) * Bedside debridement for left BKA stump (04/25/17) by Dr. Broussard ID, Dr. Wellington----> Help appreciated * Antibiotics should be stopped after two weeks. Wound care consult Daily dressing changes with nicolas Lab: Wound culture: Gram negative kendy; proteus mirabilis, klebsiella pneumonia and vancomycin resistance E.faecium Medications: * Gentamicin 80mg IVPB HD * Linezolid 600mg IVPB Q12 Status: Acute (7) Anemia, chronic disease Assessment & Plan: H/H stable * transfused 2 units of PRBC on HD (04/15/17) * Transfuse 2 units of prbc (05/05/2017)---> repeat H/H post transfusion (11.0/ 33.1) * Continue to monitor with am labs Medication: * Procrit 10,000 unit IV TTS ( on HD) on this admission, M,W,F Status: Chronic (8) Glaucoma Assessment & Plan: Medications: * Timolol 0.5% OU BID * Latanoprost 0.02 ml OU HS * Brimonidine 1ml OU TID Status: Acute (9) Diabetes mellitus Assessment & Plan: HgbA1C (02/18/17): 8.7 Management/Medication: * Accuchecks * ISS high dose * Hypoglycemia protocol Status: Acute (10) History of CHF (congestive heart failure) Assessment & Plan: Echo (03/09/17): EF=61%, please refer to the full report for complete impression Medication: * Lasix 40mg PO daily Status: Acute (11) Hypertension Assessment & Plan: Medications: * Norvasc 5mg PO daily (Held due to chronic right peripheral edema) * Hydralazine 25mg PO BID Status: Chronic (12) History of hyperlipidemia Assessment & Plan: Crestor 10mg PO HS Status: Acute (13) Prophylactic measure Assessment & Plan: GI: Protonix 40mg PO daily DVT: Eliquis 5mg PO daily: (Held due to black stool, as per conversation with Dr. Daily and Patient's nurse, TARI, hold eliquis dose till Thursday) PT and OT Disposition: Possible LTAC placement or higher level of subacute care. At this time, patient has been denied for LTAC placement, however case loader operator/social staff worker and Dr. Myrick are working on an alternative placement. All management as per Dr. Myrick Status: Acute
[2017-05-07] MEDS: Linezolid 600 mg in D5W 300 ml 600 MG/300 ML BAG IVPB SCH ×3 (10:59→23:21)
[2017-05-07] MEDS ORDERED: Potassium Chloride 20 mEq/15 ml LIQ UD PO ONE (11:37)
[2017-05-07] MEDS ORDERED: Magnesium Sulfate 1 gm in D5W 1 GM/100 ML BAG IVPB ONE (11:37)
--- NOTE | 2017-05-07 12:21 | CT ---
PROCEDURE: CT Lumbar Spine without contrast HISTORY: R/o osteomyelitis COMPARISON: None. TECHNIQUE: Axial computed tomography images were obtained of the lumbar spine without the use of intravenous contrast. Coronal and sagittal reformatted images were created and reviewed. Radiation dose: Total exam DLP = 859.00 mGy-cm. This CT exam was performed using one or more of the following dose reduction techniques: Automated exposure control, adjustment of the mA and/or kV according to patient size, and/or use of iterative reconstruction technique. FINDINGS: VERTEBRAE: Normal lumbar curvature is appreciate without acute fracture or spondylolisthesis identified. No suspicious matter signal changes are identified with a mixed sclerotic and lytic but well marginated nonaggressive lesion at the superior endplate of L4 anteriorly. It is unchanged greater prior CT angiogram of the abdomen pelvis dated 02/20/2017. Facet arthropathy affects the mid to inferior lumbar levels with prevertebral and paraspinal soft tissues reflecting only aortic atherosclerosis, non aneurysmal. DISCS/SPINAL CANAL/NEURAL FORAMINA: The L1-2 and L2-3 disc interspace levels appear widely patent as well as at L3-4 though minimal disc bulging is seen at L3-4. Facet degenerative changes are quite limited. L4-5 and L5-S1, mild generalized disc bulging is appreciated with lateral recesses stenosis bilaterally and symmetrically at L4-5 but without generalized central canal stenosis appreciate throughout. No significant neural foraminal stenosis throughout. OTHER FINDINGS: None. IMPRESSION: No fracture or spondylolisthesis or severe spinal stenosis identified. No gross disc herniation however MR in evaluating the intervertebral discs than CT and can be performed if clinically warranted. Latter recess stenosis symmetric at L4-5 caused by generalized disc bulging without causing generalized central canal stenosis overall. Stable likely nonaggressive bone lesion anterior segment superior endplate L4.
--- NOTE | 2017-05-07 14:26 | PN ---
DATE: LOCATION: [facility], bed B. SUBJECTIVE: This is a 71 years old female, post PEG insertion today, seen early and examined in rounds, with reported intermittent periods of melena as per the nursing staff, but tolerating PEG feeding well without any nausea, vomiting, hematemesis. The patient is somewhat disoriented and semi-agitated and restless. The entire chart is reviewed including, but not limited to most recent lab and radiology study results, current and the previous medication list, current and the previous medical events and today's lab is hemoglobin 10.2 with hematocrit 31.2 with thrombocytopenia of 110 that is post blood transfusion; with low potassium 3.4 and CO2 content of 15 indicative of metabolic acidosis, with BUN 27, creatinine 1.4, increased blood glucose level to 307 as well as low calcium 7.3 and low phosphorus 2.1, with total protein 3.6, album dropped to 2.1. PHYSICAL EXAMINATION GENERAL: A 71 years old female. VITAL SIGNS: Afebrile with heart rate of 96 and respiratory rate of 18-20. HEENT: Showed pale, dry oral mucous membrane. Nonicteric sclerae. LUNGS: Few scattered crepitation, decreased air entry at bases. HEART: Positive S1 and S2 with increased rate. ABDOMEN: Soft, bowel sounds are present, but mildly hypoactive. PEG tube is in place and intact without any reported active bleeding residual or resistant. The wound is clean, covered with clean dressing. IMPRESSION: 1. Dysphagia, failure to thrive with status post percutaneous endoscopic gastrostomy insertion. 2. Anemia, most likely secondary to chronic disease. 3. Known history of pulmonary embolus. 4. Status post left below-knee amputation recently. 5. Reported sacral decubiti, still on antibiotic. 6. Again, the patient has a history of hypertension, congestive heart failure, diabetes mellitus with hyperlipidemia. 7. Malnutrition with hypoalbuminemia. 8. Electrolyte imbalance. SUGGESTIONS: 1. Agree with your plan. 2. Correct any coagulopathy. 3. Subsequent increase of PEG feeding rate. 4. Proton pump inhibitors IV. 5. Further recommendation to follow. Karena Arias MD
--- NOTE | 2017-05-07 18:32 | CP.PCM.PN ---
Subjective - Date & Time of Evaluation Date of Evaluation: 05/07/17 Time of Evaluation: 15:00 - Subjective Subjective: SEEN ON RENAL F/U ON THE BED SIDE S/P PEG .. ON HD M W C/O SUPPORTIVE MANAGEMENT Objective - Vital Signs/Intake and Output Vital Signs (last 24 hours): Temp Pulse Resp BP Pulse Ox 99.2 F 97 H 18 84/46 L 100 05/07/17 16:00 05/07/17 16:00 05/07/17 16:00 05/07/17 16:00 05/07/17 16:00 Intake and Output: 05/07/17 05/07/17 06:59 18:59 Intake Total 150 920 Output Total 25 50 Balance 125 870 - Medications Medications: Current Medications Acetaminophen (Tylenol 325mg Tab) 650 mg PO Q6 PRN PRN Reason: Pain, moderate (4-7) Last Admin: 05/01/17 18:01 Dose: 650 mg Apixaban (Eliquis) 5 mg PO BID [facility] Last Admin: 05/07/17 10:05 Dose: Not Given Brimonidine Tartrate (Alphagan 0.2% Opht) 1 ml OU TID [facility] Last Admin: 05/07/17 18:29 Dose: 1 drop Collagenase (Santyl) 0 gm TOP Q12H [facility] Last Admin: 05/07/17 18:29 Dose: 1 applic Epoetin Maxwell (Procrit) 10,000 unit IV MWF [facility] Last Admin: 05/06/17 12:29 Dose: 10,000 unit Ergocalciferol (Drisdol 50,000 Intl Units Cap) 1 cap PO Q7D [facility] Last Admin: 05/02/17 23:17 Dose: Not Given Furosemide (Lasix) 40 mg PO DAILY [facility] Last Admin: 05/07/17 10:03 Dose: 40 mg Glucagon (Glucagen Diagnostic Kit) 1 mg IM STAT PRN; Protocol PRN Reason: Hypoglycemia Protocol Last Admin: 05/02/17 22:26 Dose: 1 mg Hydromorphone HCl (Dilaudid) 0.5 mg IVP Q4H PRN PRN Reason: Pain, severe (8-10) Last Admin: 05/07/17 17:14 Dose: 0.5 mg Linezolid (Zyvox 600mg/300ml D5w) 600 mg in 300 mls @ 200 mls/hr IVPB Q12H [facility] Stop: 05/08/17 23:00 Last Admin: 05/07/17 10:59 Dose: 200 mls/hr Gentamicin Sulfate/Sodium Chloride (Gentamicin Iv 80 Mg Premix) 80 mg in 100 mls @ 100 mls/hr IVPB MWF [facility] Last Admin: 05/06/17 10:00 Dose: Not Given Ceftazidime 1 gm/ Sodium (Chloride) 100 mls @ 100 mls/hr IV DAILY [facility] Last Admin: 05/07/17 10:04 Dose: 100 mls/hr Insulin Glargine (Lantus) 10 unit SC HS [facility] Insulin Human Regular (Novolin R) 0 unit SC ACHS [facility] PRN Reason: Protocol Last Admin: 05/07/17 17:13 Dose: 2 unit Latanoprost (Xalatan Opht) 0.02 ml OU HS [facility] Last Admin: 05/06/17 22:34 Dose: 0.02 ml Megestrol Acetate (Megace) 200 mg PO TID [facility] Last Admin: 05/07/17 18:28 Dose: 200 mg Midodrine (Proamatine) 10 mg PO ONCE PRN PRN Reason: Diastolic blood pressure Last Admin: 04/29/17 09:50 Dose: 10 mg Nystatin (Nystop Topical Powder) 1 gm TOP Q8H [facility] Last Admin: 05/07/17 17:15 Dose: 1 gra Pantoprazole Sodium (Protonix Susp) 40 mg PO DAILY [facility] Last Admin: 05/07/17 10:03 Dose: 40 mg Rosuvastatin Calcium (Crestor) 10 mg PO HS [facility] Last Admin: 05/06/17 22:18 Dose: 10 mg Thiamine HCl (Vitamin B1 Inj) 100 mg IV Q8H [facility] Last Admin: 05/07/17 14:26 Dose: 100 mg Timolol Maleate (Timoptic 0.5% Ophth Soln) 1 drop OU BID [facility] Last Admin: 05/07/17 18:28 Dose: 1 drop Vitamin B Complex/Vit C/Folic Acid (Nephro-Alonzo) 1 tab PO 0800 [facility] Last Admin: 05/07/17 08:00 Dose: Not Given - Labs Labs: 05/07/17 08:15 05/07/17 08:15 PT 14.1 SECONDS (9.7-12.2) H 05/05/17 11:49 INR 1.2 05/05/17 11:49 APTT 30 SECONDS (21-34) 05/05/17 11:49
[2017-05-07] MEDS: Latanoprost 2.5 ml Opht Soln OU SCH (21:38)
[2017-05-08] MEDS: HYDROmorphone 0.5 mg/0.5 ml ISec IVP PRN (05:25)
[2017-05-08] MEDS: Collagenase 250 Units/gm Ointment(30 gm) TOP SCH ×2 (05:26→17:22)
[2017-05-08] MEDS: Thiamine 100 mg/ml Inj IV SCH ×3 (05:30→21:32)
[2017-05-08 07:28] LABS: BASO % 0.2 % (0.0-2.0); EOS # 0.1 K/uL (0.0-0.7); EOS % 1.1 % (0.0-4.0); HEMATOCRIT 30.7 % (34.0-47.0); LYMPH # 0.7 K/uL (1.0-4.3); LYMPH % 7.3 % (20.0-40.0); MEAN CELL VOLUME 94.9 fL (81.0-99.0); MEAN CORPUSCULAR HEMOGLOBIN 30.7 pg (27.0-31.0); MEAN CORPUSCULAR HGB CONC 32.4 g/dL (33.0-37.0); MEAN PLATELET VOLUME 9.1 fL (7.2-11.7); MONO # 0.7 K/uL (0.0-0.8); MONO % 7.1 % (0.0-10.0); NRBC % 0.4 % (0.0-2.0); PLATELET COUNT 101 K/uL (130-400); RED CELL DISTRIBUTION WIDTH 16.7 % (11.5-14.5); WHITE BLOOD COUNT 9.3 K/uL (4.8-10.8)
[2017-05-08] MEDS: (Novolin R) Insulin Human Regular 100 units/ml vial SC SCH ×5 (08:10→22:05)
[2017-05-08 08:15] LABS: ALB/GLOB RATIO 1.2 (1.0-2.1); BILIRUBIN,TOTAL 0.5 mg/dL (0.2-1.3); CALCIUM 7.2 mg/dl (8.6-10.4); MAGNESIUM 1.9 mg/dL (1.6-2.3); PHOSPHOROUS 1.7 mg/dL (2.5-4.5); POTASSIUM 4.3 mmol/L (3.6-5.2); TOTAL PROTEIN 3.6 g/dL (6.3-8.3)
--- NOTE | 2017-05-08 08:37 | CP.PCM.PN ---
<Nathan Ponce - Last Filed: 05/08/17 19:51> Subjective - Date & Time of Evaluation Date of Evaluation: 05/08/17 Time of Evaluation: 08:30 - Subjective Subjective: PGY-[address] Myrick's service: Pt seen and examined at bedside. Nursing reports pt with fever this AM. Pancultures ordered and Dr. Wellington, ID made aware. Order given to start Merrem per Dr. Wellington. Pt with HEADLIGHT ASSEMBLER this AM for hypotension. She responded to fluid bolus, but lactate increased necessitating transfer to ICU. Unable to evaluate ROS due to patient's condition. Objective - Vital Signs/Intake and Output Vital Signs (last 24 hours): Temp Pulse Resp BP Pulse Ox 98.8 F 98 H 20 91/61 L 98 05/07/17 23:30 05/08/17 01:15 05/07/17 23:30 05/07/17 23:30 05/07/17 23:30 Intake and Output: 05/08/17 05/08/17 06:59 18:59 Intake Total 240 Output Total 50 Balance 190 - Medications Medications: Current Medications Acetaminophen (Tylenol 325mg Tab) 650 mg PO Q6 PRN PRN Reason: Pain, moderate (4-7) Last Admin: 05/01/17 18:01 Dose: 650 mg Apixaban (Eliquis) 5 mg PO BID [facility] Last Admin: 05/07/17 10:05 Dose: Not Given Brimonidine Tartrate (Alphagan 0.2% Opht) 1 ml OU TID [facility] Last Admin: 05/07/17 18:29 Dose: 1 drop Collagenase (Santyl) 0 gm TOP Q12H [facility] Last Admin: 05/08/17 05:26 Dose: 1 applic Epoetin Maxwell (Procrit) 10,000 unit IV MWF [facility] Last Admin: 05/06/17 12:29 Dose: 10,000 unit Ergocalciferol (Drisdol 50,000 Intl Units Cap) 1 cap PO Q7D [facility] Last Admin: 05/02/17 23:17 Dose: Not Given Furosemide (Lasix) 40 mg PO DAILY [facility] Last Admin: 05/07/17 10:03 Dose: 40 mg Glucagon (Glucagen Diagnostic Kit) 1 mg IM STAT PRN; Protocol PRN Reason: Hypoglycemia Protocol Last Admin: 05/02/17 22:26 Dose: 1 mg Hydromorphone HCl (Dilaudid) 0.5 mg IVP Q4H PRN PRN Reason: Pain, severe (8-10) Last Admin: 05/08/17 05:25 Dose: 0.5 mg Linezolid (Zyvox 600mg/300ml D5w) 600 mg in 300 mls @ 200 mls/hr IVPB Q12H [facility] Stop: 05/08/17 23:00 Last Admin: 05/07/17 23:21 Dose: 200 mls/hr Gentamicin Sulfate/Sodium Chloride (Gentamicin Iv 80 Mg Premix) 80 mg in 100 mls @ 100 mls/hr IVPB MWF [facility] Last Admin: 05/06/17 10:00 Dose: Not Given Ceftazidime 1 gm/ Sodium (Chloride) 100 mls @ 100 mls/hr IV DAILY [facility] Last Admin: 05/07/17 10:04 Dose: 100 mls/hr Insulin Glargine (Lantus) 10 unit SC HS [facility] Insulin Human Regular (Novolin R) 0 unit SC ACHS [facility] PRN Reason: Protocol Last Admin: 05/07/17 21:32 Dose: Not Given Latanoprost (Xalatan Opht) 0.02 ml OU HS [facility] Last Admin: 05/07/17 21:38 Dose: 0.02 ml Megestrol Acetate (Megace) 200 mg PO TID [facility] Last Admin: 05/07/17 18:28 Dose: 200 mg Midodrine (Proamatine) 10 mg PO ONCE PRN PRN Reason: Diastolic blood pressure Last Admin: 04/29/17 09:50 Dose: 10 mg Nystatin (Nystop Topical Powder) 1 gm TOP Q8H [facility] Last Admin: 05/07/17 23:22 Dose: 1 gra Pantoprazole Sodium (Protonix Susp) 40 mg PO DAILY [facility] Last Admin: 05/07/17 10:03 Dose: 40 mg Rosuvastatin Calcium (Crestor) 10 mg PO HS [facility] Last Admin: 05/07/17 21:38 Dose: 10 mg Thiamine HCl (Vitamin B1 Inj) 100 mg IV Q8H [facility] Last Admin: 05/08/17 05:30 Dose: 100 mg Timolol Maleate (Timoptic 0.5% Oph Soln) 1 drop OU BID [facility] Last Admin: 05/07/17 18:28 Dose: 1 drop Vitamin B Complex/Vit C/Folic Acid (Nephro-Alonzo) 1 tab PO 0800 [facility] Last Admin: 05/07/17 08:00 Dose: Not Given - Labs Labs: 05/08/17 07:20 05/08/17 07:20 PT 14.1 SECONDS (9.7-12.2) H 05/05/17 11:49 INR 1.2 05/05/17 11:49 APTT 30 SECONDS (21-34) 05/05/17 11:49 - Constitutional Appears: In Acute Distress, Cachectic, Chronically Ill - Head Exam Head Exam: ATRAUMATIC, NORMAL INSPECTION - Eye Exam Eye Exam: EOMI - ENT Exam ENT Exam: Mucous Membranes Moist - Respiratory Exam Respiratory Exam: Decreased Breath Sounds - Cardiovascular Exam Cardiovascular Exam: REGULAR RHYTHM, +S1, +S2 - GI/Abdominal Exam GI & Abdominal Exam: Soft. absent: Distended, Rigid Additional comments: Excoriated skin on bilateral buttocks - Extremities Exam Extremities Exam: Pedal Edema. absent: Normal Inspection Additional comments: Left AKA - Back Exam Back Exam: absent: CVA tenderness (L), CVA tenderness (R) - Neurological Exam Neurological Exam: Alert, Awake. absent: Oriented x3 - Skin Skin Exam: absent: Normal Color Assessment and Plan - Assessment and Plan (Free Text) Plan: (1) Sepsis Assessment & Plan: 05/08/17: Leukocytosis w. bandemia WBC 9.3, Bands 26, Left shift Lactate 4 initially - repeat despite bolus, 8 - transferred to ICU CXR (05/08/17): worsening left pleural effusion (f/u official read) Sacral culture (04/11/17) : Gram negative kendy, proteus mirabilis Blood culture (04/11/17): Gram positive cocci, Staphyl aureus and coag-negative staph, repeat blood culture (05/04/17): negative S/P Left BKA (04/11/17): Gram negative kendy, proteus mirabilis, klebsiella pneumonia and vancomycin resistance E.faecium UA/ UC (05/01/17): Negative - repeat Urine Culture (05/05/17): Yeast Medications/management: * Gentamicin 80mg IVPB HD * Zosyn 2.25gm IVPB Q8H * Linezolid 600mg IVPB Q12H ---> Started on 03/26, D/C on 05/08/17 * Start Diflucan 100mg IV Q24H * Start Merrem 500mg IV Q12H * Discontinued Vancomycin 1gm IVPB on HD ID consult, Dr. Wellington---> Help appreciated Recommended lumbar spine CT without contrast to r/o osteomyelitis/ r/o source of infection: * Lumbar Spine CT: No fracture or spondylolisthesis or severe spinal stenosis identified. No gross disc herniation however MR in evaluating the intervertebral discs than CT and can be performed if clinically warranted. Latter recess stenosis symmetric at L4-5 caused by generalized disc bulging without causing generalized central canal stenosis overall. Stable likely nonaggressive bone lesion anterior segment superior endplate L4. Status: Acute (2) Pulmonary embolism Assessment & Plan: Chest CT angio: Filling defects are noted at both upper lobes pulmonary arteries suggestive of pulmonary embolus. Large bilateral pleural effusion. Mild cardiomegaly. [id number] pericardial effusion. Gpcy-[id number]-tuookkby anasarca. Lower lobe atelectasis due to pleural effusion. Medications: Eliquis 5mg PO BID (Held due to black stool, as per conversation with Dr. Daily and Patient's nurse, TARI, hold eliquis dose till Thursday) Status: Acute (3) Serum albumin decreased Assessment & Plan: Possibly secondary to decrease PO intake and appetite Medication/Management: * Still encourage PO intake * Supplemental drink: Glucerna TID * Continue to monitor with am labs * Megace 200mg PO TID (Appetite stimulant) Dr. Daily consulted-----> Help appreciated ( For PEG tube placement) - S/P PEG tube placement POD#1 - PEG tube in use, tube feeding in process Status: Acute (4) End stage renal disease on dialysis 05/07/17: Hold dialysis today due to hypotension; sepsis T[employer] Curer, Dr. Ambrose---> Help appreciated * Management as per recommendation Management/Medications: On HD (TTS) ---> MWF ( for this admission) * Via Left Arm shunt * PICC line inserted by IR 03/23/17 - DVT in R upper extremity Ergocalciferol 1 cap PO Q7D Procrit 10,000 unit IV MWF Ferric sodium gluconate 125 mg MWF Nephrovite Eliquis 5mg PO BID; for R upper extremity DVT ( Held due to black stool, as per conversation with Dr. Daily and Patient's nurse, TARI, hold eliquis dose till Thursday) Status: Chronic (5) Sacral decubitus ulcer, stage III Assessment & Plan: general Surgery, Dr. Broussard consulted * No surgical intervention at this time * Santyl for sacral decub ID, Dr. Wellington consulted * As per ID, antibiotics should be stopped after two weeks Wound care consult Lab: Gram Negative kendy, proteus mirabilis Medication: * Gentamicin 80mg IVPB HD---->Stop 05/08/17 * Linezolid 600mg IVPB Q12H (started 04/14/17)---> Stop 05/08/17 Status: Acute (6) S/P BKA (below knee amputation) Assessment & Plan: General Surgery, Dr. Broussard---> Help appreciated * Management as per recommendation * BKA (03/30/17) * Bedside debridement for left BKA stump (04/25/17) by Dr. Broussard ID, Dr. Wellington----> Help appreciated * Antibiotics should be stopped after two weeks. Wound care consult Daily dressing changes with santyl Lab: Wound culture: Gram negative kendy; proteus mirabilis, klebsiella pneumonia and vancomycin resistance E.faecium Medications: * Gentamicin 80mg IVPB HD * Linezolid 600mg IVPB Q12 Status: Acute (7) Anemia, chronic disease Assessment & Plan: H/H stable * transfused 2 units of PRBC on HD (04/15/17) * Transfuse 2 units of prbc (05/05/2017)---> repeat H/H post transfusion (11.0/ 33.1) * Continue to monitor with am labs Medication: * Procrit 10,000 unit IV TTS ( on HD) on this admission, M,W,F Status: Chronic (8) Glaucoma Assessment & Plan: Medications: * Timolol 0.5% OU BID * Latanoprost 0.02 ml OU HS * Brimonidine 1ml OU TID Status: Acute (9) Diabetes mellitus Assessment & Plan: HgbA1C (02/18/17): 8.7 Management/Medication: * Accuchecks * ISS high dose * Hypoglycemia protocol Status: Acute (10) History of CHF (congestive heart failure) Assessment & Plan: Echo (03/09/17): EF=61%, please refer to the full report for complete impression Medication: * Lasix 40mg PO daily (HOLD due to Hypotension) Status: Acute (11) Hypertension hypotensive this AM Medications: * Norvasc 5mg PO daily (Held due to chronic right peripheral edema) * Lasix 40mg IV Daily (hold, pt hypotensive) Status: Chronic (12) History of hyperlipidemia Assessment & Plan: Crestor 10mg PO HS Status: Acute (13) Prophylactic measure Assessment & Plan: GI: Protonix 40mg PO daily DVT: Eliquis 5mg PO daily: (Held due to black stool, as per conversation with Dr. Daily and Patient's nurse, TARI, hold eliquis dose till Thursday) PT and OT Disposition: CODE SEPSIS/HEADLIGHT ASSEMBLER called this AM. Rising lactate despite bolus necessitated transfer to ICU. Nathan Ponce PGY-2 All management as per Dr. Myrick <Benson Myrick Jr. - Last Filed: 05/17/17 13:08> Objective - Vital Signs/Intake and Output Vital Signs (last 24 hours): Temp Pulse Resp BP Pulse Ox 99.5 F 134 H 16 135/48 L 100 05/17/17 08:00 05/17/17 11:00 05/17/17 11:00 05/17/17 11:00 05/17/17 11:00 Intake and Output: 05/17/17 05/17/17 06:59 18:59 Intake Total 1285.3 507.5 Output Total 100 Balance 1185.3 507.5 - Medications Medications: Current Medications Acetaminophen (Tylenol 650mg/20.3ml Solution Ud) 650 mg PO Q6 PRN PRN Reason: Fever >100.4 F Last Admin: 05/16/17 12:23 Dose: 650 mg Albumin Human (Albumin Human 5% (12.5 Gm/250 Ml)) 12.5 gm IV MWF PRN PRN Reason: hypotension Last Admin: 05/15/17 11:45 Dose: 12.5 gm Apixaban (Eliquis) 5 mg PO BID [facility] Last Admin: 05/15/17 19:20 Dose: 5 mg Brimonidine Tartrate (Alphagan 0.2% Opht) 1 ml OU TID [facility] Last Admin: 05/17/17 13:01 Dose: 1 applic Collagenase (Santyl) 0 gm TOP DAILY [facility] Last Admin: 05/17/17 09:54 Dose: 1 applic Epoetin Maxwell (Procrit) 10,000 unit IV MWF [facility] Last Admin: 05/15/17 11:11 Dose: 10,000 unit Ergocalciferol (Drisdol 50,000 Intl Units Cap) 1 cap PO Q7D [facility] Last Admin: 05/16/17 22:02 Dose: 1 cap Hydrocortisone Sodium Succinate (Solu-Cortef) 50 mg IV Q8H [facility] Last Admin: 05/17/17 12:58 Dose: Not Given Linezolid (Zyvox 600mg/300ml D5w) 600 mg in 300 mls @ 200 mls/hr IVPB Q12 [facility] Last Admin: 05/17/17 09:51 Dose: 200 mls/hr Propofol (Diprivan) 1,000 mg in 100 mls @ 1.762 mls/hr IV .Q24H PRN; Protocol; 5 MCG/KG/MIN PRN Reason: TITRATE PER MD ORDER Last Titration: 05/13/17 20:00 Dose: 10 mcg/kg/min, 3.524 mls/hr Micafungin Sodium 100 mg/ (Sodium Chloride) 100 mls @ 100 mls/hr IV Q24H [facility] Last Admin: 05/16/17 19:44 Dose: 100 mls/hr Norepinephrine Bitartrate 8 mg (/ Sodium Chloride) 250 mls @ 7.5 mls/hr IV .Q24H PRN; Protocol; 4 MCG/MIN PRN Reason: TITRATE PER MD ORDER Last Admin: 05/17/17 07:47 Dose: 20 mcg/min, 37.5 mls/hr Gentamicin Sulfate/Sodium Chloride (Gentamicin Iv 80 Mg Premix) 80 mg in 100 mls @ 100 mls/hr IVPB Q24H [facility] Last Admin: 05/17/17 12:56 Dose: 100 mls/hr Insulin Glargine (Lantus) 10 unit SC AMHS [facility] Last Admin: 05/17/17 09:52 Dose: Not Given Insulin Human Regular (Novolin R) 0 unit SC Q4 [facility] PRN Reason: Protocol Last Admin: 05/17/17 12:12 Dose: Not Given Latanoprost (Xalatan Opht) 0.02 ml OU HS [facility] Last Admin: 05/16/17 21:22 Dose: 0.02 ml Midodrine (Proamatine) 10 mg PO ONCE PRN PRN Reason: Diastolic blood pressure Last Admin: 05/09/17 11:02 Dose: 10 mg Nystatin (Nystop Topical Powder) 1 gm TOP Q8H [facility] Last Admin: 05/17/17 07:53 Dose: 1 applic Pantoprazole Sodium (Protonix Inj) 40 mg IVP DAILY [facility] Last Admin: 05/17/17 09:50 Dose: 40 mg Potassium Phos/Sodium Phos (Neutra-Phos) 1 pkt PO BIDPC [facility] Last Admin: 05/17/17 09:55 Dose: 1 pkt Rosuvastatin Calcium (Crestor) 10 mg PO HS [facility] Last Admin: 05/16/17 21:11 Dose: 10 mg Thiamine HCl (Vitamin B1 Inj) 100 mg IV Q8H [facility] Last Admin: 05/17/17 05:30 Dose: 100 mg Timolol Maleate (Timoptic 0.5% Ophth Soln) 1 drop OU BID [facility] Last Admin: 05/17/17 09:54 Dose: 1 drop Vitamin B Complex/Vit C/Folic Acid (Nephro-Alonzo) 1 tab PO 0800 [facility] Last Admin: 05/17/17 07:53 Dose: 1 tab - Labs Labs: 05/17/17 06:50 05/17/17 06:51 PT 14.8 SECONDS (9.7-12.2) H 05/16/17 06:58 INR 1.3 05/16/17 06:58 APTT 30 SECONDS (21-34) 05/16/17 06:58 Attending/Attestation - Attestation I have personally seen and examined this patient.: Yes I have fully participated in the care of the patient.: Yes I have reviewed all pertinent clinical information, including history, physical exam and plan: Yes Notes (Text): 05/17/17 13:08 Agree resident note and plan of care
[2017-05-08] MEDS: Multivitamin Vitamin B Complex (Nephro-Vite) Tab PO SCH (08:42)
[2017-05-08] MEDS: Nystatin 100,000 Units/gm Topical Pow(15 gm) TOP SCH ×2 (08:46→16:01)
[2017-05-08] MEDS: Gentamicin 80 mg in 0.9% NS 80 MG/100 ML BAG IVPB SCH (09:08)
[2017-05-08 09:31] LABS: MYELOCYTE 1 % (0-0); NEUTROPHIL 57 % (50-75); TOTAL CELLS COUNTED 100
[2017-05-08] MEDS: Epoetin Alfa 10,000 unit/ml Dialysis IV SCH (09:44)
[2017-05-08] MEDS: Brimonidine 0.2% Opth Sol (5ml) OU SCH ×3 (10:42→17:23)
[2017-05-08] MEDS: Megestrol Acetate 40 mg/ml Cup PO SCH ×3 (10:43→17:21)
[2017-05-08] MEDS ORDERED: Sodium Chloride 0.9% 500 ML IV ONE ×4 (10:44→19:13)
--- NOTE | 2017-05-08 10:44 | RAD ---
HISTORY: R/O PNEUMONIA COMPARISON: Comparison made with prior chest radiograph 05/05/2017. Comparison also made with CT scan chest 04/16/2017. FINDINGS: LUNGS: Large bilateral effusions left larger than right again noted. There is more dense appearance of the left lung base likely due to an area of atelectasis/ consolidation in the left lung base. PLEURA: No significant pleural effusion identified, no pneumothorax apparent. CARDIOVASCULAR: Heart size difficult to assess due to silhouetting of both cardiac borders the wall was noted to be enlarged on prior CT chest in part due to a moderate-sized pericardial effusion. OSSEOUS STRUCTURES: No significant abnormalities. VISUALIZED UPPER ABDOMEN: Normal. OTHER FINDINGS: None. IMPRESSION: Large bilateral effusions left larger than right again noted. There is more dense appearance of the left lung base likely due to an area of atelectasis/ consolidation in the left lung base.
--- NOTE | 2017-05-08 10:59 | PCM.RRT ---
[employer] Nurses Assessment - Situation Date: 05/08/17 Time [employer] was called: 10:56 [employer] Responder Arrival Time:: 10:56 [employer] Location:: Med/Surg Room Number: 568B [employer] Reason for Call: Hypotension [employer] Called By: Physician - IV IV Inserted during [employer]?: No IV Fluids Initiated During [employer]?: IV Bolus 1L - Respiratory [employer] Delivery Method: Nasal Cannula @L/min Received Nebulizer Treatments: No Secretions Suctioned?: No - Diagnostic Test Ordered Chest X-Ray: Yes - Stat Labs Ordered [employer] Stat Labs Ordered: LACTIC ACID CPR started during [employer]?: No - [place] Coma Scale Coma Scale Verbal: Confused/able to answer - Sepsis Screen Part 1 Sepsis Screen Part 1: Hypotensive - Sepsis Screen Part 2 Sepsis Screen Part 2: Glucose elevated, Pt not on steroids, Bands over 10% - Recommendations 5) [employer] Level of Care Recommendations: Remain in current setting I.Reason for [employer] - A) Acute Change in Patient: (Select all that apply): Acute change in SBP below Subjective: [employer] called for hypotension. BP 62/36. 1L fluid bolus ordered. Pt responsive at altered baseline. Pt responded appropriately to 1 liter of fluid bolus. Recent PEG tube placement. - Neurological Status (Select all that apply): Alert, Verbal, Follows Commands, Confused - Respiratory Oxygen Delivery Method: Nasal Cannula @L/min (2) - Constitutional Appears: Cachectic, Chronically Ill - Head Head Exam: ATRAUMATIC, NORMAL INSPECTION - Eyes Eye Exam: EOMI. absent: Scleral icterus - Respiratory Exam Respiratory Exam: Decreased Breath Sounds (left), Rales (left middle/lower lobe) - Cardiovascular Exam Cardiovascular Exam: Tachycardia, +S1, +S2 - GI/Abdominal Exam GI & Abdominal Exam: Soft, Normal Bowel Sounds. absent: Tenderness Additional comments: Excoriated skin noted at rectum; sacral ulcer - Neurological Exam Neurological Exam: Alert, Awake - Extremities Exam Extremities Exam: Pedal Edema. absent: Normal Inspection Additional comments: Hx of BKA Plan - Assessment of Findings&Treatment Plan CODE SEPSIS initiated Lactate: 4.0 - repeat @ 1pm - 500cc fluid bolus initiated CXR: worsening bilateral effusions - Dr. John, Pulm pension consultant S/p peg insertion - Xr abd w contrast (omnipaque contrast) Dr Cabrera, ICU evaluation - f/u C diff, D/C fraga - repeat lactate and will make determination for dispostion at that time Dr. Wellington, ID (already on board) - start Merrem, f/u pancultures Attending Dr. Myrick made aware.
[2017-05-08] MEDS ORDERED: Phenylephrine 30 MG in Dextrose 5% In Water 250 ML IV PRN (11:00)
[2017-05-08] MEDS ORDERED: Iohexol 240 (50 ml) PO ONE ×2 (11:08→17:46)
[2017-05-08] MEDS: Meropenem 500 MG in Sodium Chloride 0.9% 100 ML IVPB SCH ×2 (11:52→21:30)
[2017-05-08] MEDS ORDERED: Vancomycin 1 gm/NS 200 ml 1 GM/200 ML BAG IVPB ONE (12:00)
[2017-05-08 12:01] LABS: ABG ALLEN TEST POS; DRAW SITE RR
--- NOTE | 2017-05-08 12:52 | PN ---
LOCATION: [facility], bed B. SUBJECTIVE: This 71 years old female seen and examined in rounds today with the staff in the floor. Tolerating PEG feeding well, but spiked a temperature of 101 for which blood culture, urine culture and chest x ray were ordered. No reported active bleeding or reported chest pain at this point. The entire chart is reviewed including but not limited to the most recent lab and radiology study results, current and the previous medication list, current and the previous medical events and the patient still has normal white blood cells of 9.3, but increased band neutrophils to 26 with low hemoglobin 9.9, low hematocrit 30.7 with thrombocytopenia of 101 with blood glucose level 450 and lactic acid of 4.1, elevated with low calcium 7.2, low phosphorus 1.7 and low albumin 1.9, low total protein 3.6. Most recent chest x ray done today, report is seen indicative of large bilateral effusion with left lung base pneumonia most likely. PHYSICAL EXAMINATION: GENERAL: A 71 years old female, less responding to verbal stimuli. VITAL SIGNS: Low grade temperature of 101 and pulse of 104, blood pressure of 100/62. HEENT: Showed pale dry oral mucous membrane. Nonicteric sclerae. LUNGS: Few scattered crepitation. Decreased air entry at bases. HEART: Positive S1 and S2. ABDOMEN: Soft. Bowel sounds are present. No mass or organomegaly. No rebound tenderness or guarding. PEG tube is in place without bleeding, resistant or residual. No evidence of anterior abdominal wall cellulitis with a clean wound covered with clean dressing. EXTREMITIES: With lower extremities edematous changes. The patient is with status post left below knee amputation. NEUROLOGIC: No reported new neurological deficits, sensory or motor. IMPRESSION: 1. Dysphagia, failure to thrive with hypoalbuminemia. 2. Status post percutaneous endoscopic gastrostomy insertion. 3. Abnormal chest x ray with pleural effusion and possible pneumonia with fever indicative of early phase of possible septicemia. 4. Dehydration with increased lactic acid. 5. Known history of pulmonary embolus, status post left below knee amputation with decubitus ulceration, still on antibiotics. 6. Known history of hypertension, congestive heart failure, hyperlipidemia with poorly controlled diabetes mellitus. 7. Electrolyte imbalance with hypocalcemia, hypophosphatemia. SUGGESTION: 1. Agree with your plan. 2. Follow up with ID consultation recommendation, Dr. Wellington. 3. Peripheral hyperalimentation. 4. Increase rate of feeding as tolerated. 5. Further recommendation to follow. Karena Arias MD
[2017-05-08] MEDS: Fluconazole IV 200mg/100 ml NS 100 ML IVPB SCH (13:07)
[2017-05-08] MEDS: Pantoprazole 40 mg Susp UD PO SCH (13:26)
--- NOTE | 2017-05-08 14:10 | PCM.SEPTIC ---
Sepsis Progress Note - Reassessment Type Date of Evaluation: 05/08/17 Time of Evaluation: 15:53 Reassessment Type: Non-invasive reassessment - Non Invasive Reassessment Were the most recent vital sign reviewed: Yes Vital Sign (Latest): Temp Pulse Resp BP Pulse Ox 98.4 F 97 H 26 H 144/60 100 05/08/17 13:00 05/08/17 13:29 05/08/17 13:29 05/08/17 13:29 05/08/17 13:29 Cardiovascular: Yes: Tachycardia Respiratory: Yes: Decreased Breath Sounds (left; pleural effusion), Rales Capillary Refill: Normal (Less than 2 sec) Pulses: Normal Radial, Decreased Dorsalis Pedis (Pt with BKA/PVD), Decreased Posterior Tibialis (Pt with BKA/PVD) Skin: Pale - Invasive Reassessment (complete 2 of 4) Was a Central Venous Pressure Measurement obtained within 6 Hours after the presentation of septic shock: No Was a central venous oxygen measurement obtained within 6 hours after the presentation of septic shock: No Was a bedside cardiovascular ultrasound performed within 6 hours after the presentation of septic shock: No Was a passive leg raise performed or was a fluid challenge performed within 6 hrs of the initial fluid bolus: No Fluid Challenge performed: Yes
--- NOTE | 2017-05-08 14:11 | CP.PCM.PN ---
Subjective - Date & Time of Evaluation Date of Evaluation: 05/08/17 - Subjective Subjective: Patient seen and examined at bedside. Rapid response, pt transferred to ICU. lactate 8.0. Patient was febrile. Patient is responsive. No shortness of breath or cough. Objective - Vital Signs/Intake and Output Vital Signs (last 24 hours): Temp Pulse Resp BP Pulse Ox 98.4 F 97 H 26 H 144/60 100 05/08/17 13:00 05/08/17 13:29 05/08/17 13:29 05/08/17 13:29 05/08/17 13:29 Intake and Output: 05/08/17 05/08/17 06:59 18:59 Intake Total 240 800 Output Total 50 0 Balance 190 800 - Medications Medications: Current Medications Acetaminophen (Tylenol 325mg Tab) 650 mg PO Q6 PRN PRN Reason: Pain, moderate (4-7) Last Admin: 05/01/17 18:01 Dose: 650 mg Acetaminophen (Tylenol 325mg Tab) 650 mg PO Q6 PRN PRN Reason: Fever >100.4 F Last Admin: 05/08/17 08:44 Dose: 650 mg Apixaban (Eliquis) 5 mg PO BID [facility] Last Admin: 05/07/17 10:05 Dose: Not Given Brimonidine Tartrate (Alphagan 0.2% Opht) 1 ml OU TID [facility] Last Admin: 05/08/17 13:45 Dose: 1 drop Collagenase (Santyl) 0 gm TOP Q12H [facility] Last Admin: 05/08/17 05:26 Dose: 1 applic Epoetin Maxwell (Procrit) 10,000 unit IV MWF [facility] Last Admin: 05/06/17 12:29 Dose: 10,000 unit Ergocalciferol (Drisdol 50,000 Intl Units Cap) 1 cap PO Q7D [facility] Last Admin: 05/02/17 23:17 Dose: Not Given Furosemide (Lasix) 40 mg PO DAILY [facility] Last Admin: 05/08/17 12:57 Dose: Not Given Glucagon (Glucagen Diagnostic Kit) 1 mg IM STAT PRN; Protocol PRN Reason: Hypoglycemia Protocol Last Admin: 05/02/17 22:26 Dose: 1 mg Linezolid (Zyvox 600mg/300ml D5w) 600 mg in 300 mls @ 200 mls/hr IVPB Q12H [facility] Stop: 05/08/17 23:00 Last Admin: 05/07/17 23:21 Dose: 200 mls/hr Gentamicin Sulfate/Sodium Chloride (Gentamicin Iv 80 Mg Premix) 80 mg in 100 mls @ 100 mls/hr IVPB MWF [facility] Last Admin: 05/08/17 09:08 Dose: 100 mls/hr Fluconazole (Diflucan Iv 200 Mg/100 Ml Ns) 100 mls @ 100 mls/hr IVPB Q24H [facility] Stop: 05/11/17 09:01 Last Admin: 05/08/17 13:07 Dose: 100 mls/hr Meropenem 500 mg/ Sodium (Chloride) 100 mls @ 100 mls/hr IVPB Q12H [facility] Last Admin: 05/08/17 11:52 Dose: 100 mls/hr Phenylephrine HCl 30 mg/ (Dextrose) 253 mls @ 5.05 mls/hr IV .Q24H PRN; Protocol; 10 MCG/MIN PRN Reason: TITRATE PER MD ORDER Insulin Glargine (Lantus) 10 unit SC [facility] Insulin Human Regular (Novolin R) 0 unit SC [facility] PRN Reason: Protocol Last Admin: 05/08/17 12:52 Dose: Not Given Latanoprost (Xalatan Opht) 0.02 ml OU [facility] Last Admin: 05/07/17 21:38 Dose: 0.02 ml Megestrol Acetate (Megace) 200 mg PO TID [facility] Last Admin: 05/07/17 18:28 Dose: 200 mg Midodrine (Proamatine) 10 mg PO ONCE PRN PRN Reason: Diastolic blood pressure Last Admin: 04/29/17 09:50 Dose: 10 mg Nystatin (Nystop Topical Powder) 1 gm TOP Q8H [facility] Last Admin: 05/08/17 08:46 Dose: 1 gra Pantoprazole Sodium (Protonix Susp) 40 mg PO DAILY [facility] Last Admin: 05/08/17 13:26 Dose: 40 mg Rosuvastatin Calcium (Crestor) 10 mg PO HS [facility] Last Admin: 05/07/17 21:38 Dose: 10 mg Thiamine HCl (Vitamin B1 Inj) 100 mg IV Q8H [facility] Last Admin: 05/08/17 13:33 Dose: 100 mg Timolol Maleate (Timoptic 0.5% Ophth Soln) 1 drop OU BID [facility] Last Admin: 05/07/17 18:28 Dose: 1 drop Vitamin B Complex/Vit C/Folic Acid (Nephro-Alonzo) 1 tab PO 0800 [facility] Last Admin: 05/08/17 08:42 Dose: 1 tab - Labs Labs: 05/08/17 07:20 05/08/17 07:20 PT 14.1 SECONDS (9.7-12.2) H 05/05/17 11:49 INR 1.2 05/05/17 11:49 APTT 30 SECONDS (21-34) 05/05/17 11:49 Assessment and Plan (1) Pleural effusion Assessment & Plan: chest x-ray bilateral pleural effusions-chronic source of infection sacral ulcer or knee amputation ID consult, help appreciated pt transferred to ICU Status: Acute
[2017-05-08] MEDS: Linezolid 600 mg in D5W 300 ml 600 MG/300 ML BAG IVPB SCH (15:08)
--- NOTE | 2017-05-08 17:25 | CP.PCM.PN ---
Subjective - Date & Time of Evaluation Date of Evaluation: 05/08/17 Time of Evaluation: 09:00 - Subjective Subjective: s/p rapid response iv rx in progress weak and bedridden cultures sent poor prognosis may need surgical re-eval for debridement Objective - Vital Signs/Intake and Output Vital Signs (last 24 hours): Temp Pulse Resp BP Pulse Ox 97.8 F 91 H 27 H 117/40 L 100 05/08/17 16:00 05/08/17 16:00 05/08/17 16:00 05/08/17 15:59 05/08/17 16:00 Intake and Output: 05/08/17 05/08/17 06:59 18:59 Intake Total 240 1100 Output Total 50 0 Balance 190 1100 - Medications Medications: Current Medications Acetaminophen (Tylenol 325mg Tab) 650 mg PO Q6 PRN PRN Reason: Pain, moderate (4-7) Last Admin: 05/01/17 18:01 Dose: 650 mg Acetaminophen (Tylenol 325mg Tab) 650 mg PO Q6 PRN PRN Reason: Fever >100.4 F Last Admin: 05/08/17 08:44 Dose: 650 mg Apixaban (Eliquis) 5 mg PO BID [facility] Last Admin: 05/07/17 10:05 Dose: Not Given Brimonidine Tartrate (Alphagan 0.2% Opht) 1 ml OU TID [facility] Last Admin: 05/08/17 13:45 Dose: 1 drop Collagenase (Santyl) 0 gm TOP Q12H [facility] Last Admin: 05/08/17 05:26 Dose: 1 applic Epoetin Maxwell (Procrit) 10,000 unit IV MWF [facility] Last Admin: 05/08/17 09:44 Dose: Not Given Ergocalciferol (Drisdol 50,000 Intl Units Cap) 1 cap PO Q7D [facility] Last Admin: 05/02/17 23:17 Dose: Not Given Furosemide (Lasix) 40 mg PO DAILY [facility] Last Admin: 05/08/17 12:57 Dose: Not Given Glucagon (Glucagen Diagnostic Kit) 1 mg IM STAT PRN; Protocol PRN Reason: Hypoglycemia Protocol Last Admin: 05/02/17 22:26 Dose: 1 mg Linezolid (Zyvox 600mg/300ml D5w) 600 mg in 300 mls @ 200 mls/hr IVPB Q12H [facility] Stop: 05/08/17 23:00 Last Admin: 05/08/17 15:08 Dose: 200 mls/hr Gentamicin Sulfate/Sodium Chloride (Gentamicin Iv 80 Mg Premix) 80 mg in 100 mls @ 100 mls/hr IVPB MWF [facility] Last Admin: 05/08/17 09:08 Dose: 100 mls/hr Fluconazole (Diflucan Iv 200 Mg/100 Ml Ns) 100 mls @ 100 mls/hr IVPB Q24H [facility] Stop: 05/11/17 09:01 Last Admin: 05/08/17 13:07 Dose: 100 mls/hr Meropenem 500 mg/ Sodium (Chloride) 100 mls @ 100 mls/hr IVPB Q12H [facility] Last Admin: 05/08/17 11:52 Dose: 100 mls/hr Phenylephrine HCl 30 mg/ (Dextrose) 253 mls @ 5.05 mls/hr IV .Q24H PRN; Protocol; 10 MCG/MIN PRN Reason: TITRATE PER MD ORDER Insulin Glargine (Lantus) 10 unit SC [facility] Insulin Human Regular (Novolin R) 0 unit SC [facility] PRN Reason: Protocol Last Admin: 05/08/17 12:52 Dose: Not Given Latanoprost (Xalatan Opht) 0.02 ml OU [facility] Last Admin: 05/07/17 21:38 Dose: 0.02 ml Megestrol Acetate (Megace) 200 mg PO TID [facility] Last Admin: 05/08/17 15:21 Dose: 200 mg Midodrine (Proamatine) 10 mg PO ONCE PRN PRN Reason: Diastolic blood pressure Last Admin: 04/29/17 09:50 Dose: 10 mg Nystatin (Nystop Topical Powder) 1 gm TOP Q8H [facility] Last Admin: 05/08/17 16:01 Dose: 1 gra Pantoprazole Sodium (Protonix Susp) 40 mg PO DAILY [facility] Last Admin: 05/08/17 13:26 Dose: 40 mg Rosuvastatin Calcium (Crestor) 10 mg PO HS [facility] Last Admin: 05/07/17 21:38 Dose: 10 mg Thiamine HCl (Vitamin B1 Inj) 100 mg IV Q8H [facility] Last Admin: 05/08/17 13:33 Dose: 100 mg Timolol Maleate (Timoptic 0.5% Ophth Soln) 1 drop OU BID [facility] Last Admin: 05/08/17 10:44 Dose: Not Given Vitamin B Complex/Vit C/Folic Acid (Nephro-Alonzo) 1 tab PO 0800 [facility] Last Admin: 05/08/17 08:42 Dose: 1 tab - Labs Labs: 05/08/17 07:20 05/08/17 07:20 PT 14.1 SECONDS (9.7-12.2) H 05/05/17 11:49 INR 1.2 05/05/17 11:49 APTT 30 SECONDS (21-34) 05/05/17 11:49 - Constitutional Appears: Non-toxic, Chronically Ill - Head Exam Head Exam: NORMOCEPHALIC - Eye Exam Eye Exam: PERRL - ENT Exam ENT Exam: Mucous Membranes Dry - Respiratory Exam Respiratory Exam: Decreased Breath Sounds - Cardiovascular Exam Cardiovascular Exam: REGULAR RHYTHM - GI/Abdominal Exam GI & Abdominal Exam: Distended - Rectal Exam Rectal Exam: Deferred - Exam Exam: NORMAL INSPECTION Assessment and Plan (1) Elevated WBC count Status: Acute (2) S/P BKA (below knee amputation) Status: Acute (3) Sacral decubitus ulcer, stage III Status: Acute (4) Sepsis Status: Acute
--- NOTE | 2017-05-08 19:09 | CP.CCUPN ---
CCU Subjective - Physician Review Subjective (Free Text): PGY1 ICU consult note for Dr. [place] Patient had an NUCLEAR TECHNOLOGIST called today for hypotension. She responded to 1L fluid bolus of NS appropriately. Patient's initial lactate was 4.0. Repeat lactate was 8.0. Decision was made to transfer patient to ICU for further monitoring. CCU Objective - Vital Signs / Intake & Output Vital Signs (Last 4 hours): Vital Signs Temp Pulse Resp BP Pulse Ox 05/08/17 18:00 99 H 24 100 05/08/17 17:59 100 H 19 130/45 L 100 05/08/17 17:30 96 H 29 H 130/45 L 100 05/08/17 17:00 94 H 31 H 100 05/08/17 16:59 93 H 28 H 121/46 L 100 05/08/17 16:29 93 H 24 121/46 L 99 05/08/17 16:00 97.8 F 91 H 27 H 100 05/08/17 15:59 92 H 27 H 117/40 L 100 05/08/17 15:30 91 H 28 H 117/40 L 100 Intake and Output (Last 8hrs): Intake & Output 05/08/17 05/08/17 05/08/17 06:59 14:59 22:59 Intake Total 900 750 Output Total 0 0 Balance 900 750 Weight 140 lb Intake: Intake, IV Amount 900 600 PICC 2 900 600 Oral 0 0 Other 150 Output: Urine 0 0 Urine, Voided 0 0 Other: # Bowel Movements 0 0 - Physical Exam Head: Positive for: Atraumatic Pupils: Positive for: PERRL Extroacular Muscles: Positive for: EOMI Mouth: Positive for: Moist Mucous Membranes Respiratory/Chest: Positive for: Clear to Auscultation, Good Air Exchange. Negative for: Respiratory Distress, Accessory Muscle Use Cardiovascular: Positive for: Regular Rate and Rhythm Abdomen: Negative for: Tenderness, Distention Lower Extremity: Positive for: Other (s/p left AKA) Skin: Positive for: Warm, Dry Psychiatric: Positive for: Alert - Medications Active Medications: Active Medications Generic Name Dose Route Start Last Admin Trade Name Freq PRN Reason Stop Dose Admin Acetaminophen 650 mg 04/11/17 22:25 05/01/17 18:01 Tylenol 325mg Tab PO 650 mg Q6 PRN Administration Pain, moderate (4-7) Acetaminophen 650 mg 05/08/17 08:30 05/08/17 08:44 Tylenol 325mg Tab PO 650 mg Q6 PRN Administration Fever >100.4 F Apixaban 5 mg 04/30/17 10:00 05/07/17 10:05 Eliquis PO Not Given BID [facility] Brimonidine Tartrate 1 ml 04/12/17 10:00 05/08/17 17:23 Alphagan 0.2% Opht OU 1 drop TID [facility] Administration Collagenase 0 gm 04/19/17 18:00 05/08/17 17:22 Santyl TOP 1 applic Q12H ELINA Administration Epoetin Maxwell 10,000 unit 04/27/17 12:00 05/08/17 09:44 Procrit IV Not Given [facility] Ergocalciferol 1 cap 04/11/17 22:30 05/02/17 23:17 Drisdol 50,000 Intl Units Cap PO Not Given Q7D [facility] Furosemide 40 mg 04/12/17 10:00 05/08/17 12:57 Lasix PO Not Given DAILY [facility] Glucagon 1 mg 04/19/17 08:20 05/02/17 22:26 Glucagen Diagnostic Kit IM 1 mg STAT PRN Administration Hypoglycemia Protocol Protocol Linezolid 600 mg in 300 mls @ 200 mls/hr 04/14/17 12:00 05/08/17 15:08 Zyvox 600mg/300ml D5w IVPB 05/08/17 23:00 200 mls/hr Q12H ELINA Administration Gentamicin Sulfate/Sodium Chloride 80 mg in 100 mls @ 100 mls/hr 04/22/17 14: 00 05/08/17 09:08 Gentamicin Iv 80 Mg Premix IVPB 100 mls/hr MWF ELINA Administration Fluconazole 100 mls @ 100 mls/hr 05/08/17 09:00 05/08/17 13:07 Diflucan Iv 200 Mg/100 Ml Ns IVPB 05/11/17 09:01 100 mls/hr Q24H ELINA Administration Meropenem 500 mg/ Sodium 100 mls @ 100 mls/hr 05/08/17 10:30 05/08/17 11:52 Chloride IVPB 100 mls/hr Q12H ELINA Administration Phenylephrine HCl 30 mg/ 253 mls @ 5.05 mls/hr 05/08/17 11:00 Dextrose IV .Q24H PRN TITRATE PER MD ORDER Protocol 10 MCG/MIN Insulin Glargine 10 unit 05/02/17 22:00 Lantus SC HS ELINA Insulin Human Regular 0 unit 04/12/17 07:30 05/08/17 17:21 Novolin R SC 3 unit ACHS ELINA Administration Protocol Latanoprost 0.02 ml 04/12/17 22:00 05/07/17 21:38 Xalatan Opht OU 0.02 ml HS ELINA Administration Megestrol Acetate 200 mg 05/05/17 14:00 05/08/17 17:21 Megace PO 200 mg TID ELINA Administration Midodrine 10 mg 04/27/17 11:04 04/29/17 09:50 Proamatine PO 10 mg ONCE PRN Administration Diastolic blood pressure Nystatin 1 gm 04/19/17 16:15 05/08/17 16:01 Nystop Topical Powder TOP 1 gra Q8H ELINA Administration Pantoprazole Sodium 40 mg 04/18/17 10:00 05/08/17 13:26 Protonix Susp PO 40 mg DAILY ELINA Administration Rosuvastatin Calcium 10 mg 04/12/17 22:00 05/07/17 21:38 Crestor PO 10 mg HS ELINA Administration Thiamine HCl 100 mg 04/11/17 22:30 05/08/17 13:33 Vitamin B1 Inj IV 100 mg Q8H ELINA Administration Timolol Maleate 1 drop 04/12/17 10:00 05/08/17 17:49 Timoptic 0.5% Ophth Soln OU 1 drop BID ELINA Administration Vitamin B Complex/Vit C/Folic Acid 1 tab 04/12/17 08:00 05/08/17 08:42 Nephro-Alonzo PO 1 tab 0800 ELINA Administration - Patient Studies Lab Studies: Microbiology Studies 05/04/17 17:00 Blood Culture - Preliminary Blood-Venous NO GROWTH AFTER 4 DAYS 05/04/17 15:25 Blood Culture - Preliminary Blood-Venous NO GROWTH AFTER 3 DAYS Lab Studies 05/08/17 05/08/17 05/08/17 Range/Units 16:40 15:22 14:35 WBC (4.8-10.8) K/uL RBC (3.80-5.20) Mil/uL Hgb (11.0-16.0) g/dL Hct (34.0-47.0) % MCV (81.0-99.0) fL MCH (27.0-31.0) pg MCHC (33.0-37.0) g/dL RDW (11.5-14.5) % Plt Count (130-400) K/uL MPV (7.2-11.7) fL Neut % (Auto) (50.0-75.0) % Lymph % (Auto) (20.0-40.0) % Wheeler % (Auto) (0.0-10.0) % Eos % (Auto) (0.0-4.0) % Baso % (Auto) (0.0-2.0) % Neut # (1.8-7.0) K/uL Lymph # (1.0-4.3) K/uL Wheeler # (0.0-0.8) K/uL Eos # (0.0-0.7) K/uL Baso # (0.0-0.2) K/uL Neutrophils % (Manual) (50-75) % Band Neutrophils % (0-2) % Lymphocytes % (Manual) (20-40) % Monocytes % (Manual) (0-10) % Myelocytes % (0-0) % Platelet Estimate (NORMAL) Anisocytosis (manual) Puncture Site pCO2 (35-45) mm/Hg pO2 (80-100) mm/Hg HCO3 (21-28) mmol/L ABG pH (7.35-7.45) ABG Total CO2 (22-28) mmol/L ABG O2 Saturation (95-98) % ABG Base Excess (-2.0-3.0) mmol/L Joey Test ABG Potassium (3.6-5.2) mmol/L A-a O2 Difference mm/Hg Respiratory Index Glucose (65-105) mg/dl Lactate (0.7-2.1) mmol/L Liter Flow FiO2 % Crit Value Called To Crit Value Called By Crit Value Read Back Blood Gas Notified Time Sodium (132-148) mmol/L Potassium (3.6-5.2) mmol/L Chloride (98-107) mmol/L Carbon Dioxide (22-30) mmol/L Anion Gap (10-20) BUN (7-17) mg/dL Creatinine (0.7-1.2) mg/dL Est GFR ( Amer) Est GFR (Non-Af Amer) POC Glucose (mg/dL) 242 H (65-110) mg/dL Random Glucose (65-105) mg/dL Lactic Acid 7.3 H* (0.7-2.1) mmol/L Calcium (8.6-10.4) mg/dl Phosphorus (2.5-4.5) mg/dL Magnesium (1.6-2.3) mg/dL Total Bilirubin (0.2-1.3) mg/dL AST (14-36) U/L ALT (9-52) U/L Alkaline Phosphatase (38-126) U/L Total Protein (6.3-8.3) g/dL Albumin (3.5-5.0) g/dL Globulin (2.2-3.9) gm/dL Albumin/Globulin Ratio (1.0-2.1) Arterial Blood Potassium (3.6-5.2) mmol/L Random Gentamicin 3.0 ug/mL C. difficile Ag & Toxin (NEGATIVE) 05/08/17 05/08/17 05/08/17 Range/Units 11:57 11:08 10:56 WBC (4.8-10.8) K/uL RBC (3.80-5.20) Mil/uL Hgb (11.0-16.0) g/dL Hct (34.0-47.0) % MCV (81.0-99.0) fL MCH (27.0-31.0) pg MCHC (33.0-37.0) g/dL RDW (11.5-14.5) % Plt Count (130-400) K/uL MPV (7.2-11.7) fL Neut % (Auto) (50.0-75.0) % Lymph % (Auto) (20.0-40.0) % Wheeler % (Auto) (0.0-10.0) % Eos % (Auto) (0.0-4.0) % Baso % (Auto) (0.0-2.0) % Neut # (1.8-7.0) K/uL Lymph # (1.0-4.3) K/uL Wheeler # (0.0-0.8) K/uL Eos # (0.0-0.7) K/uL Baso # (0.0-0.2) K/uL Neutrophils % (Manual) (50-75) % Band Neutrophils % (0-2) % Lymphocytes % (Manual) (20-40) % Monocytes % (Manual) (0-10) % Myelocytes % (0-0) % Platelet Estimate (NORMAL) Anisocytosis (manual) Puncture Site Rr pCO2 23 L (35-45) mm/Hg pO2 123 H (80-100) mm/Hg HCO3 15.4 L (21-28) mmol/L ABG pH 7.32 L (7.35-7.45) ABG Total CO2 12.6 L (22-28) mmol/L ABG O2 Saturation 99.6 H (95-98) % ABG Base Excess -12.2 L (-2.0-3.0) mmol/L Joey Test Pos ABG Potassium 3.5 L (3.6-5.2) mmol/L A-a O2 Difference 62.0 mm/Hg Respiratory Index 0.5 Glucose 384 H (65-105) mg/dl Lactate 8.0 H* (0.7-2.1) mmol/L Liter Flow 3.0 FiO2 30.0 % Crit Value Called To Dr calderon [place] Crit Value Called By Veronica calero foster parent Crit Value Read Back Y Blood Gas Notified Time 1200 Sodium 136.0 (132-148) mmol/L Potassium (3.6-5.2) mmol/L Chloride 99.0 (98-107) mmol/L Carbon Dioxide (22-30) mmol/L Anion Gap (10-20) BUN (7-17) mg/dL Creatinine (0.7-1.2) mg/dL Est GFR ( Amer) Est GFR (Non-Af Amer) POC Glucose (mg/dL) 495 H* (65-110) mg/dL Random Glucose (65-105) mg/dL Lactic Acid (0.7-2.1) mmol/L Calcium (8.6-10.4) mg/dl Phosphorus (2.5-4.5) mg/dL Magnesium (1.6-2.3) mg/dL Total Bilirubin (0.2-1.3) mg/dL AST (14-36) U/L ALT (9-52) U/L Alkaline Phosphatase (38-126) U/L Total Protein (6.3-8.3) g/dL Albumin (3.5-5.0) g/dL Globulin (2.2-3.9) gm/dL Albumin/Globulin Ratio (1.0-2.1) Arterial Blood Potassium 3.5 L (3.6-5.2) mmol/L Random Gentamicin ug/mL C. difficile Ag & Toxin Negative (NEGATIVE) 05/08/17 05/08/17 05/08/17 Range/Units 10:23 09:52 07:20 WBC (4.8-10.8) K/uL RBC (3.80-5.20) Mil/uL Hgb (11.0-16.0) g/dL Hct (34.0-47.0) % MCV (81.0-99.0) fL MCH (27.0-31.0) pg MCHC (33.0-37.0) g/dL RDW (11.5-14.5) % Plt Count (130-400) K/uL MPV (7.2-11.7) fL Neut % (Auto) (50.0-75.0) % Lymph % (Auto) (20.0-40.0) % Wheeler % (Auto) (0.0-10.0) % Eos % (Auto) (0.0-4.0) % Baso % (Auto) (0.0-2.0) % Neut # (1.8-7.0) K/uL Lymph # (1.0-4.3) K/uL Wheeler # (0.0-0.8) K/uL Eos # (0.0-0.7) K/uL Baso # (0.0-0.2) K/uL Neutrophils % (Manual) (50-75) % Band Neutrophils % (0-2) % Lymphocytes % (Manual) (20-40) % Monocytes % (Manual) (0-10) % Myelocytes % (0-0) % Platelet Estimate (NORMAL) Anisocytosis (manual) Puncture Site pCO2 (35-45) mm/Hg pO2 (80-100) mm/Hg HCO3 (21-28) mmol/L ABG pH (7.35-7.45) ABG Total CO2 (22-28) mmol/L ABG O2 Saturation (95-98) % ABG Base Excess (-2.0-3.0) mmol/L Joey Test ABG Potassium (3.6-5.2) mmol/L A-a O2 Difference mm/Hg Respiratory Index Glucose (65-105) mg/dl Lactate (0.7-2.1) mmol/L Liter Flow FiO2 % Crit Value Called To Crit Value Called By Crit Value Read Back Blood Gas Notified Time Sodium 131 L (132-148) mmol/L Potassium 4.3 (3.6-5.2) mmol/L Chloride 96 L (98-107) mmol/L Carbon Dioxide 19 L (22-30) mmol/L Anion Gap 19 (10-20) BUN 31 H (7-17) mg/dL Creatinine 1.7 H (0.7-1.2) mg/dL Est GFR ( Amer) 36 Est GFR (Non-Af Amer) 30 POC Glucose (mg/dL) 450 H* (65-110) mg/dL Random Glucose 519 H* D (65-105) mg/dL Lactic Acid 4.1 H* (0.7-2.1) mmol/L Calcium 7.2 L (8.6-10.4) mg/dl Phosphorus 1.7 L (2.5-4.5) mg/dL Magnesium 1.9 (1.6-2.3) mg/dL Total Bilirubin 0.5 (0.2-1.3) mg/dL AST 12 L (14-36) U/L ALT 34 (9-52) U/L Alkaline Phosphatase 234 H (38-126) U/L Total Protein 3.6 L (6.3-8.3) g/dL Albumin 1.9 L (3.5-5.0) g/dL Globulin 1.7 L (2.2-3.9) gm/dL Albumin/Globulin Ratio 1.2 (1.0-2.1) Arterial Blood Potassium (3.6-5.2) mmol/L Random Gentamicin ug/mL C. difficile Ag & Toxin (NEGATIVE) 05/08/17 05/08/17 05/07/17 Range/Units 07:20 06:20 21:17 WBC 9.3 (4.8-10.8) K/uL RBC 3.23 L (3.80-5.20) Mil/uL Hgb 9.9 L (11.0-16.0) g/dL Hct 30.7 L (34.0-47.0) % MCV 94.9 (81.0-99.0) fL MCH 30.7 (27.0-31.0) pg MCHC 32.4 L (33.0-37.0) g/dL RDW 16.7 H (11.5-14.5) % Plt Count 101 L (130-400) K/uL MPV 9.1 (7.2-11.7) fL Neut % (Auto) 84.3 H (50.0-75.0) % Lymph % (Auto) 7.3 L (20.0-40.0) % Wheeler % (Auto) 7.1 (0.0-10.0) % Eos % (Auto) 1.1 (0.0-4.0) % Baso % (Auto) 0.2 (0.0-2.0) % Neut # 7.8 H (1.8-7.0) K/uL Lymph # 0.7 L (1.0-4.3) K/uL Wheeler # 0.7 (0.0-0.8) K/uL Eos # 0.1 (0.0-0.7) K/uL Baso # 0.0 (0.0-0.2) K/uL Neutrophils % (Manual) 57 (50-75) % Band Neutrophils % 26 H* (0-2) % Lymphocytes % (Manual) 10 L (20-40) % Monocytes % (Manual) 6 (0-10) % Myelocytes % 1 H (0-0) % Platelet Estimate Slightly decreased L (NORMAL) Anisocytosis (manual) Slight Puncture Site pCO2 (35-45) mm/Hg pO2 (80-100) mm/Hg HCO3 (21-28) mmol/L ABG pH (7.35-7.45) ABG Total CO2 (22-28) mmol/L ABG O2 Saturation (95-98) % ABG Base Excess (-2.0-3.0) mmol/L Joey Test ABG Potassium (3.6-5.2) mmol/L A-a O2 Difference mm/Hg Respiratory Index Glucose (65-105) mg/dl Lactate (0.7-2.1) mmol/L Liter Flow FiO2 % Crit Value Called To Crit Value Called By Crit Value Read Back Blood Gas Notified Time Sodium (132-148) mmol/L Potassium (3.6-5.2) mmol/L Chloride (98-107) mmol/L Carbon Dioxide (22-30) mmol/L Anion Gap (10-20) BUN (7-17) mg/dL Creatinine (0.7-1.2) mg/dL Est GFR ( Amer) Est GFR (Non-Af Amer) POC Glucose (mg/dL) 483 H* 121 H (65-110) mg/dL Random Glucose (65-105) mg/dL Lactic Acid (0.7-2.1) mmol/L Calcium (8.6-10.4) mg/dl Phosphorus (2.5-4.5) mg/dL Magnesium (1.6-2.3) mg/dL Total Bilirubin (0.2-1.3) mg/dL AST (14-36) U/L ALT (9-52) U/L Alkaline Phosphatase (38-126) U/L Total Protein (6.3-8.3) g/dL Albumin (3.5-5.0) g/dL Globulin (2.2-3.9) gm/dL Albumin/Globulin Ratio (1.0-2.1) Arterial Blood Potassium (3.6-5.2) mmol/L Random Gentamicin ug/mL C. difficile Ag & Toxin (NEGATIVE) Laboratory Results - last 24 hr 05/07/17 05/08/17 05/08/17 21:17 06:20 07:20 WBC 9.3 RBC 3.23 L Hgb 9.9 L Hct 30.7 L MCV 94.9 MCH 30.7 MCHC 32.4 L RDW 16.7 H Plt Count 101 L MPV 9.1 Neut % (Auto) 84.3 H Lymph % (Auto) 7.3 L Wheeler % (Auto) 7.1 Eos % (Auto) 1.1 Baso % (Auto) 0.2 Neut # 7.8 H Lymph # 0.7 L Wheeler # 0.7 Eos # 0.1 Baso # 0.0 Neutrophils % (Manual) 57 Band Neutrophils % 26 H* Lymphocytes % (Manual) 10 L Monocytes % (Manual) 6 Myelocytes % 1 H Platelet Estimate Slightly decreased L Anisocytosis (manual) Slight Puncture Site pCO2 pO2 HCO3 ABG pH ABG Total CO2 ABG O2 Saturation ABG Base Excess Joey Test ABG Potassium A-a O2 Difference Respiratory Index Glucose Lactate Liter Flow FiO2 Crit Value Called To Crit Value Called By Crit Value Read Back Blood Gas Notified Time Sodium Potassium Chloride Carbon Dioxide Anion Gap BUN Creatinine Est GFR ( Amer) Est GFR (Non-Af Amer) POC Glucose (mg/dL) 121 H 483 H* Random Glucose Lactic Acid Calcium Phosphorus Magnesium Total Bilirubin AST ALT Alkaline Phosphatase Total Protein Albumin Globulin Albumin/Globulin Ratio Arterial Blood Potassium Random Gentamicin C. difficile Ag & Toxin 05/08/17 05/08/17 05/08/17 07:20 09:52 10:23 WBC RBC Hgb Hct MCV MCH MCHC RDW Plt Count MPV Neut % (Auto) Lymph % (Auto) Wheeler % (Auto) Eos % (Auto) Baso % (Auto) Neut # Lymph # Wheeler # Eos # Baso # Neutrophils % (Manual) Band Neutrophils % Lymphocytes % (Manual) Monocytes % (Manual) Myelocytes % Platelet Estimate Anisocytosis (manual) Puncture Site pCO2 pO2 HCO3 ABG pH ABG Total CO2 ABG O2 Saturation ABG Base Excess Joey Test ABG Potassium A-a O2 Difference Respiratory Index Glucose Lactate Liter Flow FiO2 Crit Value Called To Crit Value Called By Crit Value Read Back Blood Gas Notified Time Sodium 131 L Potassium 4.3 Chloride 96 L Carbon Dioxide 19 L Anion Gap 19 BUN 31 H Creatinine 1.7 H Est GFR ( Amer) 36 Est GFR (Non-Af Amer) 30 POC Glucose (mg/dL) 450 H* Random Glucose 519 H* D Lactic Acid 4.1 H* Calcium 7.2 L Phosphorus 1.7 L Magnesium 1.9 Total Bilirubin 0.5 AST 12 L ALT 34 Alkaline Phosphatase 234 H Total Protein 3.6 L Albumin 1.9 L Globulin 1.7 L Albumin/Globulin Ratio 1.2 Arterial Blood Potassium Random Gentamicin C. difficile Ag & Toxin 05/08/17 05/08/17 05/08/17 10:56 11:08 11:57 WBC RBC Hgb Hct MCV MCH MCHC RDW Plt Count MPV Neut % (Auto) Lymph % (Auto) Wheeler % (Auto) Eos % (Auto) Baso % (Auto) Neut # Lymph # Wheeler # Eos # Baso # Neutrophils % (Manual) Band Neutrophils % Lymphocytes % (Manual) Monocytes % (Manual) Myelocytes % Platelet Estimate Anisocytosis (manual) Puncture Site Rr pCO2 23 L pO2 123 H HCO3 15.4 L ABG pH 7.32 L ABG Total CO2 12.6 L ABG O2 Saturation 99.6 H ABG Base Excess -12.2 L Joey Test Pos ABG Potassium 3.5 L A-a O2 Difference 62.0 Respiratory Index 0.5 Glucose 384 H Lactate 8.0 H* Liter Flow 3.0 FiO2 30.0 Crit Value Called To Dr calderon [place] Crit Value Called By Veronica calero foster parent Crit Value Read Back Y Blood Gas Notified Time 1200 Sodium 136.0 Potassium Chloride 99.0 Carbon Dioxide Anion Gap BUN Creatinine Est GFR ( Amer) Est GFR (Non-Af Amer) POC Glucose (mg/dL) 495 H* Random Glucose Lactic Acid Calcium Phosphorus Magnesium Total Bilirubin AST ALT Alkaline Phosphatase Total Protein Albumin Globulin Albumin/Globulin Ratio Arterial Blood Potassium 3.5 L Random Gentamicin C. difficile Ag & Toxin Negative 05/08/17 05/08/17 05/08/17 14:35 15:22 16:40 WBC RBC Hgb Hct MCV MCH MCHC RDW Plt Count MPV Neut % (Auto) Lymph % (Auto) Wheeler % (Auto) Eos % (Auto) Baso % (Auto) Neut # Lymph # Wheeler # Eos # Baso # Neutrophils % (Manual) Band Neutrophils % Lymphocytes % (Manual) Monocytes % (Manual) Myelocytes % Platelet Estimate Anisocytosis (manual) Puncture Site pCO2 pO2 HCO3 ABG pH ABG Total CO2 ABG O2 Saturation ABG Base Excess Joey Test ABG Potassium A-a O2 Difference Respiratory Index Glucose Lactate Liter Flow FiO2 Crit Value Called To Crit Value Called By Crit Value Read Back Blood Gas Notified Time Sodium Potassium Chloride Carbon Dioxide Anion Gap BUN Creatinine Est GFR ( Amer) Est GFR (Non-Af Amer) POC Glucose (mg/dL) 242 H Random Glucose Lactic Acid 7.3 H* Calcium Phosphorus Magnesium Total Bilirubin AST ALT Alkaline Phosphatase Total Protein Albumin Globulin Albumin/Globulin Ratio Arterial Blood Potassium Random Gentamicin 3.0 C. difficile Ag & Toxin Fingerstick Blood Sugar Results: 242 Review of Systems - Review of Systems Systems not reviewed;Unavailable: Altered Mental Status (baseline) Assessment/Plan - Assessment and Plan (Free Text) Assessment: 71 year old female with PMHx ESRD (dialysis TTS), CHF, HTN, DM2, PVD, AMS, depression, anemia of chronic disease, chronic low back pain and glaucoma. Patient had NUCLEAR TECHNOLOGIST called today for hypotension. Patient was transferred to ICU for further monitoring. Plan: Neuro: Altered mental status, etiology unknown. Respiratory: Chest CT angio: Filling defects are noted at both upper lobes pulmonary arteries suggestive of pulmonary embolus. Large bilateral pleural effusion. Mild cardiomegaly. [id number] pericardial effusion. [id number] anasarca. Lower lobe atelectasis due to pleural effusion. Hem: Eliquis 5mg PO daily Nephro: ESRD on hemodialysis Dr. Ambrose consulted, help appreciated Pt undergoes hemodialysis Tues/Thurs/Sat Ergocalcierol 1 capsule PO Q7D Procrit Endo: DM ISS Lantus 10units SC HS on hold Cardio: hx of diastolic CHF MAP >65, EF61% Phenylephrine drip Crestor 10mg PO HS ID: Sepsis WBC 9.3 - Bands 26 Lactate 4.1 - f/u lactic acid q4h 8.0, 7.3, 6.4 Infectious Disease, Dr. Wellington consulted, help appreciated abx per ID Fluconazole 200mg IVPB q24h Gentamicin 80mg IVPB MWF Meropenem 500mg IVPB q12h Linezolid 600mg IVPB q12h Patient received total of 3.5 L boluses of NS throughout day Prophylactic Care: GI: Protonix 40mg PO daily Case discussed with Dr. Rick Hodgson Allegra PGY1
[2017-05-08] MEDS ORDERED: Dextrose 50% VIAL Inj (50 ml) IV ONE (21:25)
[2017-05-08] MEDS: Latanoprost 2.5 ml Opht Soln OU SCH (21:32)
[2017-05-08] MEDS ORDERED: Dextrose 50% SYRINGE Inj (50 ml) IV STA (22:00)
--- NOTE | 2017-05-08 22:13 | CP.PCM.PN ---
Subjective - Date & Time of Evaluation Date of Evaluation: 05/08/17 Time of Evaluation: 16:00 - Subjective Subjective: WAS TRANSFERED TO ICU 2/2 HYPOTENSION AND SEOSIS HD WAS PUT OFF TILL TOMORROW WAS GIVEN 1L NS ON THE FLOOR S/P PEG ALL PREVIOUS EMR REVIEWED Objective - Vital Signs/Intake and Output Vital Signs (last 24 hours): Temp Pulse Resp BP Pulse Ox 97.8 F 96 H 37 H 95/61 L 100 05/08/17 16:00 05/08/17 19:00 05/08/17 19:00 05/08/17 18:59 05/08/17 19:00 Intake and Output: 05/08/17 05/09/17 18:59 06:59 Intake Total 1650 0 Output Total 0 0 Balance 1650 0 - Medications Medications: Current Medications Acetaminophen (Tylenol 325mg Tab) 650 mg PO Q6 PRN PRN Reason: Pain, moderate (4-7) Last Admin: 05/01/17 18:01 Dose: 650 mg Acetaminophen (Tylenol 325mg Tab) 650 mg PO Q6 PRN PRN Reason: Fever >100.4 F Last Admin: 05/08/17 08:44 Dose: 650 mg Apixaban (Eliquis) 5 mg PO BID COUNT INCLUDES THE [facility] Last Admin: 05/07/17 10:05 Dose: Not Given Brimonidine Tartrate (Alphagan 0.2% Opht) 1 ml OU TID COUNT INCLUDES THE [facility] Last Admin: 05/08/17 17:23 Dose: 1 drop Collagenase (Santyl) 0 gm TOP Q12H COUNT INCLUDES THE [facility] Last Admin: 05/08/17 17:22 Dose: 1 applic Dextrose (Dextrose 50% Inj) 50 ml IV STAT STA Stop: 05/08/17 22:01 Epoetin Maxwell (Procrit) 10,000 unit IV MWF COUNT INCLUDES THE [facility] Last Admin: 05/08/17 09:44 Dose: Not Given Ergocalciferol (Drisdol 50,000 Intl Units Cap) 1 cap PO Q7D COUNT INCLUDES THE [facility] Last Admin: 05/02/17 23:17 Dose: Not Given Furosemide (Lasix) 40 mg PO DAILY COUNT INCLUDES THE [facility] Last Admin: 05/08/17 12:57 Dose: Not Given Glucagon (Glucagen Diagnostic Kit) 1 mg IM STAT PRN; Protocol PRN Reason: Hypoglycemia Protocol Last Admin: 05/02/17 22:26 Dose: 1 mg Linezolid (Zyvox 600mg/300ml D5w) 600 mg in 300 mls @ 200 mls/hr IVPB Q12H COUNT INCLUDES THE [facility] Stop: 05/08/17 23:00 Last Admin: 05/08/17 15:08 Dose: 200 mls/hr Gentamicin Sulfate/Sodium Chloride (Gentamicin Iv 80 Mg Premix) 80 mg in 100 mls @ 100 mls/hr IVPB MWF COUNT INCLUDES THE [facility] Last Admin: 05/08/17 09:08 Dose: 100 mls/hr Fluconazole (Diflucan Iv 200 Mg/100 Ml Ns) 100 mls @ 100 mls/hr IVPB Q24H COUNT INCLUDES THE [facility] Stop: 05/11/17 09:01 Last Admin: 05/08/17 13:07 Dose: 100 mls/hr Meropenem 500 mg/ Sodium (Chloride) 100 mls @ 100 mls/hr IVPB Q12H COUNT INCLUDES THE [facility] Last Admin: 05/08/17 21:30 Dose: 100 mls/hr Phenylephrine HCl 30 mg/ (Dextrose) 253 mls @ 5.05 mls/hr IV .Q24H PRN; Protocol; 10 MCG/MIN PRN Reason: TITRATE PER MD ORDER Insulin Glargine (Lantus) 10 unit SC HS COUNT INCLUDES THE [facility] Insulin Human Regular (Novolin R) 0 unit SC Q6 ELINA PRN Reason: Protocol Latanoprost (Xalatan Opht) 0.02 ml OU [facility] Last Admin: 05/08/17 21:32 Dose: 0.02 ml Megestrol Acetate (Megace) 200 mg PO TID COUNT INCLUDES THE [facility] Last Admin: 05/08/17 17:21 Dose: 200 mg Midodrine (Proamatine) 10 mg PO ONCE PRN PRN Reason: Diastolic blood pressure Last Admin: 04/29/17 09:50 Dose: 10 mg Nystatin (Nystop Topical Powder) 1 gm TOP Q8H COUNT INCLUDES THE [facility] Last Admin: 05/08/17 16:01 Dose: 1 gra Pantoprazole Sodium (Protonix Susp) 40 mg PO DAILY COUNT INCLUDES THE [facility] Last Admin: 05/08/17 13:26 Dose: 40 mg Potassium Phos/Sodium Phos (Neutra-Phos) 1 pkt PO BID COUNT INCLUDES THE [facility] Stop: 05/12/17 10:01 Rosuvastatin Calcium (Crestor) 10 mg PO [facility] Last Admin: 05/08/17 21:32 Dose: 10 mg Thiamine HCl (Vitamin B1 Inj) 100 mg IV Q8H COUNT INCLUDES THE [facility] Last Admin: 05/08/17 21:32 Dose: 100 mg Timolol Maleate (Timoptic 0.5% Ophth Soln) 1 drop OU BID COUNT INCLUDES THE [facility] Last Admin: 05/08/17 17:49 Dose: 1 drop Vitamin B Complex/Vit C/Folic Acid (Nephro-Alonzo) 1 tab PO 0800 COUNT INCLUDES THE [facility] Last Admin: 05/08/17 08:42 Dose: 1 tab - Labs Labs: 05/08/17 07:20 05/08/17 07:20 PT 14.1 SECONDS (9.7-12.2) H 05/05/17 11:49 INR 1.2 05/05/17 11:49 APTT 30 SECONDS (21-34) 05/05/17 11:49 Assessment and Plan - Assessment and Plan (Free Text) Assessment: ESRD ON HD M W F .. HD IN AM INSTEAD OF TODAY HYPO PHOSPHATEMIA .. SUPPLY PHOS ANEMIA OF CKD .. WAS RECENTLY TRANSFUSED 2U PRBC MMP P : HD AM SUPPLY PHOSPHORUS C/O SUPPORTIVE CARE
[2017-05-09] MEDS: (Novolin R) Insulin Human Regular 100 units/ml vial SC SCH ×4 (00:05→18:01)
[2017-05-09] MEDS: Nystatin 100,000 Units/gm Topical Pow(15 gm) TOP SCH ×3 (00:24→16:15)
[2017-05-09] MEDS ORDERED: Oxycodone/Acetaminophen 5/325 mg Tab PO STA (01:10)
[2017-05-09] MEDS: Collagenase 250 Units/gm Ointment(30 gm) TOP SCH ×2 (05:33→17:52)
[2017-05-09] MEDS: Thiamine 100 mg/ml Inj IV SCH ×3 (05:33→21:49)
[2017-05-09 06:18] LABS: BASO % 0.2 % (0.0-2.0); EOS # 0.2 K/uL (0.0-0.7); EOS % 1.8 % (0.0-4.0); HEMATOCRIT 28.5 % (34.0-47.0); LYMPH # 1.1 K/uL (1.0-4.3); LYMPH % 12.5 % (20.0-40.0); MEAN CORPUSCULAR HEMOGLOBIN 31.5 pg (27.0-31.0); MEAN CORPUSCULAR HGB CONC 33.5 g/dL (33.0-37.0); MEAN PLATELET VOLUME 9.8 fL (7.2-11.7); MONO # 0.8 K/uL (0.0-0.8); MONO % 8.9 % (0.0-10.0); NRBC % 0.2 % (0.0-2.0); PLATELET COUNT 108 K/uL (130-400); RED CELL DISTRIBUTION WIDTH 16.6 % (11.5-14.5)
[2017-05-09 06:33] LABS: ALB/GLOB RATIO 0.8 (1.0-2.1); BILIRUBIN,TOTAL 0.4 mg/dL (0.2-1.3); CALCIUM 7.2 mg/dl (8.6-10.4); MAGNESIUM 1.8 mg/dL (1.6-2.3); PHOSPHOROUS 1.4 mg/dL (2.5-4.5); POTASSIUM 3.8 mmol/L (3.6-5.2); TOTAL PROTEIN 4.1 g/dL (6.3-8.3)
--- NOTE | 2017-05-09 06:53 | CP.PCM.PN ---
<Dominik Lee - Last Filed: 05/09/17 10:39> Subjective - Date & Time of Evaluation Date of Evaluation: 05/09/17 Time of Evaluation: 09:55 - Subjective Subjective: Medicine Note- Dr. Myrick's service Patient was seen and examined at bedside. Patient is lethargic but arousable. Patient is not in acute distress at this time. No events overnight, per nursing. Objective - Vital Signs/Intake and Output Vital Signs (last 24 hours): Temp Pulse Resp BP Pulse Ox 98.2 F 90 20 117/39 L 100 05/09/17 04:00 05/09/17 06:00 05/09/17 06:00 05/09/17 06:00 05/09/17 06:00 Intake and Output: 05/08/17 05/09/17 18:59 06:59 Intake Total 1650 800 Output Total 0 1 Balance 1650 799 - Medications Medications: Current Medications Acetaminophen (Tylenol 325mg Tab) 650 mg PO Q6 PRN PRN Reason: Pain, moderate (4-7) Last Admin: 05/09/17 00:24 Dose: 650 mg Acetaminophen (Tylenol 325mg Tab) 650 mg PO Q6 PRN PRN Reason: Fever >100.4 F Last Admin: 05/08/17 08:44 Dose: 650 mg Apixaban (Eliquis) 5 mg PO BID [facility] Last Admin: 05/07/17 10:05 Dose: Not Given Brimonidine Tartrate (Alphagan 0.2% Opht) 1 ml OU TID [facility] Last Admin: 05/08/17 17:23 Dose: 1 drop Collagenase (Santyl) 0 gm TOP Q12H [facility] Last Admin: 05/09/17 05:33 Dose: 1 applic Epoetin Maxwell (Procrit) 10,000 unit IV MWF [facility] Last Admin: 05/08/17 09:44 Dose: Not Given Ergocalciferol (Drisdol 50,000 Intl Units Cap) 1 cap PO Q7D [facility] Last Admin: 05/02/17 23:17 Dose: Not Given Furosemide (Lasix) 40 mg PO DAILY [facility] Last Admin: 05/08/17 12:57 Dose: Not Given Glucagon (Glucagen Diagnostic Kit) 1 mg IM STAT PRN; Protocol PRN Reason: Hypoglycemia Protocol Last Admin: 05/02/17 22:26 Dose: 1 mg Gentamicin Sulfate/Sodium Chloride (Gentamicin Iv 80 Mg Premix) 80 mg in 100 mls @ 100 mls/hr IVPB MWF [facility] Last Admin: 05/08/17 09:08 Dose: 100 mls/hr Fluconazole (Diflucan Iv 200 Mg/100 Ml Ns) 100 mls @ 100 mls/hr IVPB Q24H [facility] Stop: 05/11/17 09:01 Last Admin: 05/08/17 13:07 Dose: 100 mls/hr Meropenem 500 mg/ Sodium (Chloride) 100 mls @ 100 mls/hr IVPB Q12H [facility] Last Admin: 05/08/17 21:30 Dose: 100 mls/hr Phenylephrine HCl 30 mg/ (Dextrose) 253 mls @ 5.05 mls/hr IV .Q24H PRN; Protocol; 10 MCG/MIN PRN Reason: TITRATE PER MD ORDER Insulin Glargine (Lantus) 10 unit SC HS [facility] Insulin Human Regular (Novolin R) 0 unit SC Q6 ELINA PRN Reason: Protocol Last Admin: 05/09/17 05:44 Dose: 4 unit Latanoprost (Xalatan Opht) 0.02 ml OU HS [facility] Last Admin: 05/08/17 21:32 Dose: 0.02 ml Megestrol Acetate (Megace) 200 mg PO TID [facility] Last Admin: 05/08/17 17:21 Dose: 200 mg Midodrine (Proamatine) 10 mg PO ONCE PRN PRN Reason: Diastolic blood pressure Last Admin: 04/29/17 09:50 Dose: 10 mg Nystatin (Nystop Topical Powder) 1 gm TOP Q8H [facility] Last Admin: 05/09/17 00:24 Dose: 1 gra Pantoprazole Sodium (Protonix Susp) 40 mg PO DAILY [facility] Last Admin: 05/08/17 13:26 Dose: 40 mg Potassium Phos/Sodium Phos (Neutra-Phos) 1 pkt PO BID [facility] Stop: 05/12/17 10:01 Rosuvastatin Calcium (Crestor) 10 mg PO HS [facility] Last Admin: 05/08/17 21:32 Dose: 10 mg Thiamine HCl (Vitamin B1 Inj) 100 mg IV Q8H [facility] Last Admin: 05/09/17 05:33 Dose: 100 mg Timolol Maleate (Timoptic 0.5% Ophth Soln) 1 drop OU BID [facility] Last Admin: 05/08/17 17:49 Dose: 1 drop Vitamin B Complex/Vit C/Folic Acid (Nephro-Alonzo) 1 tab PO 0800 [facility] Last Admin: 05/08/17 08:42 Dose: 1 tab - Labs Labs: 05/09/17 06:00 05/09/17 06:00 PT 14.1 SECONDS (9.7-12.2) H 05/05/17 11:49 INR 1.2 05/05/17 11:49 APTT 30 SECONDS (21-34) 05/05/17 11:49 - Constitutional Appears: Chronically Ill - Head Exam Head Exam: ATRAUMATIC, NORMAL INSPECTION, NORMOCEPHALIC - Eye Exam Pupil Exam: NORMAL ACCOMODATION, PERRL - ENT Exam ENT Exam: Mucous Membranes Moist - Respiratory Exam Respiratory Exam: Clear to Ausculation Bilateral, NORMAL BREATHING PATTERN. absent: Rhonchi, Wheezes, Stridor - Cardiovascular Exam Cardiovascular Exam: REGULAR RHYTHM, +S1, +S2 - GI/Abdominal Exam GI & Abdominal Exam: Soft, Normal Bowel Sounds. absent: Tenderness, Hyperactive Bowel Sounds - Extremities Exam Additional comments: Left BKA. Inferolateral portion of BKA has open wound, draining fluid, erythematous border. - Neurological Exam Neurological Exam: Alert. absent: Awake, Oriented x3 - Psychiatric Exam Psychiatric exam: Normal Affect, Normal Mood Assessment and Plan - Assessment and Plan (Free Text) Assessment: (1) Sepsis Assessment & Plan: 05/09/17: WBC 9.0, bands 26, left shift Gentamicin and Vanco dose today Surgery to re-evaluate left BKA 05/08/17: Leukocytosis w. bandemia WBC 9.3, Bands 26, Left shift Lactate 4 initially - repeat despite bolus, 8 - transferred to ICU CXR (05/08/17): worsening left pleural effusion (f/u official read) Sacral culture (04/11/17) : Gram negative kendy, proteus mirabilis Blood culture (04/11/17): Gram positive cocci, Staphyl aureus and coag-negative staph, repeat blood culture (05/04/17): negative S/P Left BKA (04/11/17): Gram negative kendy, proteus mirabilis, klebsiella pneumonia and vancomycin resistance E.faecium UA/ UC (05/01/17): Negative - repeat Urine Culture (05/05/17): Yeast Medications/management: * Gentamicin 80mg IVPB HD * Zosyn 2.25gm IVPB Q8H * Linezolid 600mg IVPB Q12H ---> Started on 03/26, D/C on 05/08/17 * Continue Diflucan 100mg IV Q24H (started on 05/08/17) * Continue Meropenem 500mg IV Q12H (started on 05/08/17) * Discontinued Vancomycin 1gm IVPB on HD ID consult, Dr. Wellington---> Help appreciated Recommended lumbar spine CT without contrast to r/o osteomyelitis/ r/o source of infection: * Lumbar Spine CT: No fracture or spondylolisthesis or severe spinal stenosis identified. No gross disc herniation however MR in evaluating the intervertebral discs than CT and can be performed if clinically warranted. Latter recess stenosis symmetric at L4-5 caused by generalized disc bulging without causing generalized central canal stenosis overall. Stable likely nonaggressive bone lesion anterior segment superior endplate L4. Status: Acute (2) Pulmonary embolism Assessment & Plan: Chest CT angio: Filling defects are noted at both upper lobes pulmonary arteries suggestive of pulmonary embolus. Large bilateral pleural effusion. Mild cardiomegaly. [id number] pericardial effusion. [id number] anasarca. Lower lobe atelectasis due to pleural effusion. Medications: Eliquis 5mg PO BID (Held due to black stool, as per conversation with Dr. Daily and Patient's nurse, TARI, hold eliquis dose till Thursday) Status: Acute (3) Serum albumin decreased Assessment & Plan: Possibly secondary to decrease PO intake and appetite Medication/Management: * Still encourage PO intake * Supplemental drink: Glucerna TID * Continue to monitor with am labs * Megace 200mg PO TID (Appetite stimulant) Dr. 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 Ambrose---> Help appreciated * Management as per recommendation Management/Medications: On HD (TTS) ---> MWF ( for this admission) * Via Left Arm shunt * PICC line inserted by IR 03/23/17 - DVT in R upper extremity Ergocalciferol 1 cap PO Q7D Procrit 10,000 unit IV MWF Ferric sodium gluconate 125 mg MWF Nephrovite Eliquis 5mg PO BID; for R upper extremity DVT ( Held due to black stool, as per conversation with Dr. Daily and Patient's nurse, TARI, hold eliquis dose till Thursday) Status: Chronic (5) Sacral decubitus ulcer, stage III Assessment & Plan: general Surgery, Dr. Broussard consulted * No surgical intervention at this time * Santyl for sacral decub ID, Dr. Wellington consulted * As per ID, antibiotics should be stopped after two weeks Wound care consult Lab: Gram Negative kendy, proteus mirabilis Medication: * Gentamicin 80mg IVPB HD---->Stop 05/08/17 * Linezolid 600mg IVPB Q12H (started 04/14/17)---> Stop 05/08/17 Status: Acute (6) S/P BKA (below knee amputation) Assessment & Plan: General Surgery, Dr. Broussard---> Help appreciated * Management as per recommendation * BKA (03/30/17) * Bedside debridement for left BKA stump (04/25/17) by Dr. Broussard ID, Dr. Wellington----> Help appreciated * Antibiotics should be stopped after two weeks. Wound care consult Daily dressing changes with nicolas Lab: Wound culture: Gram negative kendy; proteus mirabilis, klebsiella pneumonia and vancomycin resistance E.faecium Medications: * Gentamicin 80mg IVPB HD * Linezolid 600mg IVPB Q12 Status: Acute (7) Anemia, chronic disease Assessment & Plan: H/H stable * transfused 2 units of PRBC on HD (04/15/17) * Transfuse 2 units of prbc (05/05/2017)---> repeat H/H post transfusion (11.0/ 33.1) * Continue to monitor with am labs Medication: * Procrit 10,000 unit IV TTS ( on HD) on this admission, M,W,F Status: Chronic (8) Glaucoma Assessment & Plan: Medications: * Timolol 0.5% OU BID * Latanoprost 0.02 ml OU HS * Brimonidine 1ml OU TID Status: Acute (9) Diabetes mellitus Assessment & Plan: HgbA1C (02/18/17): 8.7 Management/Medication: * Accuchecks * ISS high dose * Hypoglycemia protocol Status: Acute (10) History of CHF (congestive heart failure) Assessment & Plan: Echo (03/09/17): EF=61%, please refer to the full report for complete impression Medication: * Lasix 40mg PO daily (HOLD due to Hypotension) Status: Acute (11) Hypertension hypotensive this AM Medications: * Norvasc 5mg PO daily (Held due to chronic right peripheral edema) * Lasix 40mg IV Daily (hold, pt hypotensive) Status: Chronic (12) History of hyperlipidemia Assessment & Plan: Crestor 10mg PO HS Status: Acute (13) Prophylactic measure Assessment & Plan: GI: Protonix 40mg PO daily DVT: Eliquis 5mg PO daily: (Held due to black stool, as per conversation with Dr. Daily and Patient's nurse, TARI, hold eliquis dose till Thursday) PT and OT Disposition: CODE SEPSIS/[facility] PLANS INTELLIGENCE OFFICER CHIEF called this AM. Rising lactate despite bolus necessitated transfer to ICU. <Benson Myrick Jr. - Last Filed: 05/17/17 13:12> Objective - Vital Signs/Intake and Output Vital Signs (last 24 hours): Temp Pulse Resp BP Pulse Ox 99.5 F 134 H 16 135/48 L 100 05/17/17 08:00 05/17/17 11:00 05/17/17 11:00 05/17/17 11:00 05/17/17 11:00 Intake and Output: 05/17/17 05/17/17 06:59 18:59 Intake Total 1285.3 507.5 Output Total 100 Balance 1185.3 507.5 - Medications Medications: Current Medications Acetaminophen (Tylenol 650mg/20.3ml Solution Ud) 650 mg PO Q6 PRN PRN Reason: Fever >100.4 F Last Admin: 05/16/17 12:23 Dose: 650 mg Albumin Human (Albumin Human 5% (12.5 Gm/250 Ml)) 12.5 gm IV MWF PRN PRN Reason: hypotension Last Admin: 05/15/17 11:45 Dose: 12.5 gm Apixaban (Eliquis) 5 mg PO BID [facility] Last Admin: 05/15/17 19:20 Dose: 5 mg Brimonidine Tartrate (Alphagan 0.2% Opht) 1 ml OU TID [facility] Last Admin: 05/17/17 13:01 Dose: 1 applic Collagenase (Santyl) 0 gm TOP DAILY [facility] Last Admin: 05/17/17 09:54 Dose: 1 applic Epoetin Maxwell (Procrit) 10,000 unit IV MWF [facility] Last Admin: 05/15/17 11:11 Dose: 10,000 unit Ergocalciferol (Drisdol 50,000 Intl Units Cap) 1 cap PO Q7D [facility] Last Admin: 05/16/17 22:02 Dose: 1 cap Hydrocortisone Sodium Succinate (Solu-Cortef) 50 mg IV Q8H [facility] Last Admin: 05/17/17 12:58 Dose: Not Given Linezolid (Zyvox 600mg/300ml D5w) 600 mg in 300 mls @ 200 mls/hr IVPB Q12 [facility] Last Admin: 05/17/17 09:51 Dose: 200 mls/hr Propofol (Diprivan) 1,000 mg in 100 mls @ 1.762 mls/hr IV .Q24H PRN; Protocol; 5 MCG/KG/MIN PRN Reason: TITRATE PER MD ORDER Last Titration: 05/13/17 20:00 Dose: 10 mcg/kg/min, 3.524 mls/hr Micafungin Sodium 100 mg/ (Sodium Chloride) 100 mls @ 100 mls/hr IV Q24H [facility] Last Admin: 05/16/17 19:44 Dose: 100 mls/hr Norepinephrine Bitartrate 8 mg (/ Sodium Chloride) 250 mls @ 7.5 mls/hr IV .Q24H PRN; Protocol; 4 MCG/MIN PRN Reason: TITRATE PER MD ORDER Last Admin: 05/17/17 07:47 Dose: 20 mcg/min, 37.5 mls/hr Gentamicin Sulfate/Sodium Chloride (Gentamicin Iv 80 Mg Premix) 80 mg in 100 mls @ 100 mls/hr IVPB Q24H [facility] Last Admin: 05/17/17 12:56 Dose: 100 mls/hr Insulin Glargine (Lantus) 10 unit SC [facility] Last Admin: 05/17/17 09:52 Dose: Not Given Insulin Human Regular (Novolin R) 0 unit SC Q4 [facility]INA PRN Reason: Protocol Last Admin: 05/17/17 12:12 Dose: Not Given Latanoprost (Xalatan Opht) 0.02 ml OU HS [facility] Last Admin: 05/16/17 21:22 Dose: 0.02 ml Midodrine (Proamatine) 10 mg PO ONCE PRN PRN Reason: Diastolic blood pressure Last Admin: 05/09/17 11:02 Dose: 10 mg Nystatin (Nystop Topical Powder) 1 gm TOP Q8H [facility] Last Admin: 05/17/17 07:53 Dose: 1 applic Pantoprazole Sodium (Protonix Inj) 40 mg IVP DAILY [facility] Last Admin: 05/17/17 09:50 Dose: 40 mg Potassium Phos/Sodium Phos (Neutra-Phos) 1 pkt PO BIDPC [facility] Last Admin: 05/17/17 09:55 Dose: 1 pkt Rosuvastatin Calcium (Crestor) 10 mg PO HS [facility] Last Admin: 05/16/17 21:11 Dose: 10 mg Thiamine HCl (Vitamin B1 Inj) 100 mg IV Q8H [facility] Last Admin: 05/17/17 05:30 Dose: 100 mg Timolol Maleate (Timoptic 0.5% [facility]) 1 drop OU BID [facility] Last Admin: 05/17/17 09:54 Dose: 1 drop Vitamin B Complex/Vit C/Folic Acid (Nephro-Alonzo) 1 tab PO 0800 [facility] Last Admin: 05/17/17 07:53 Dose: 1 tab - Labs Labs: 05/17/17 06:50 05/17/17 06:51 PT 14.8 SECONDS (9.7-12.2) H 05/16/17 06:58 INR 1.3 05/16/17 06:58 APTT 30 SECONDS (21-34) 05/16/17 06:58 Attending/Attestation - Attestation I have personally seen and examined this patient.: Yes I have fully participated in the care of the patient.: Yes I have reviewed all pertinent clinical information, including history, physical exam and plan: Yes Notes (Text): 05/17/17 13:12 Agree resident note and plan of care
[2017-05-09] MEDS: Multivitamin Vitamin B Complex (Nephro-Vite) Tab PO SCH (07:47)
[2017-05-09] MEDS: Potassium & Sodium Phosphate PO SCH ×2 (09:41→17:50)
[2017-05-09] MEDS: Megestrol Acetate 40 mg/ml Cup PO SCH ×3 (09:43→17:50)
[2017-05-09] MEDS: Brimonidine 0.2% Opth Sol (5ml) OU SCH ×3 (09:44→18:00)
[2017-05-09] MEDS: Pantoprazole 40 mg Susp UD PO SCH (09:45)
[2017-05-09 10:24] LABS: NEUTROPHIL 57 % (50-75); NUCLEATED RED BLOOD CELL 2 % (0-0); TOTAL CELLS COUNTED 100
[2017-05-09 10:34] LABS: VANCOMYCIN RANDOM 10.94 ug/mL
[2017-05-09] MEDS ORDERED: Epoetin Alfa 10,000 unit/ml Dialysis IV ONE (10:47)
[2017-05-09] MEDS ORDERED: Albumin Human 25% (12.5 gm/50 ml) IV ONE (10:51)
[2017-05-09] MEDS: Meropenem 500 MG in Sodium Chloride 0.9% 100 ML IVPB SCH ×2 (12:16→21:30)
[2017-05-09] MEDS: Fluconazole IV 200mg/100 ml NS 100 ML IVPB SCH (12:49)
[2017-05-09] MEDS: HYDROmorphone 0.5 mg/0.5 ml ISec IVP PRN (14:09)
[2017-05-09] MEDS: Ergocalciferol 50,000 Intl Units Cap PO SCH (21:48)
[2017-05-09] MEDS: Latanoprost 2.5 ml Opht Soln OU SCH (21:50)
[2017-05-10] MEDS: (Novolin R) Insulin Human Regular 100 units/ml vial SC SCH ×5 (01:03→23:52)
[2017-05-10] MEDS: HYDROmorphone 0.5 mg/0.5 ml ISec IVP PRN ×3 (01:26→23:50)
[2017-05-10] MEDS: Collagenase 250 Units/gm Ointment(30 gm) TOP SCH ×2 (06:24→17:53)
[2017-05-10] MEDS: Thiamine 100 mg/ml Inj IV SCH ×3 (06:25→21:00)
[2017-05-10 06:45] LABS: BASO # 0.1 K/uL (0.0-0.2); BASO % 0.5 % (0.0-2.0); EOS # 0.2 K/uL (0.0-0.7); EOS % 2.3 % (0.0-4.0); HEMATOCRIT 31.5 % (34.0-47.0); LYMPH # 1.1 K/uL (1.0-4.3); LYMPH % 10.3 % (20.0-40.0); MEAN CELL VOLUME 94.8 fL (81.0-99.0); MEAN CORPUSCULAR HEMOGLOBIN 31.7 pg (27.0-31.0); MEAN CORPUSCULAR HGB CONC 33.4 g/dL (33.0-37.0); MEAN PLATELET VOLUME 10.9 fL (7.2-11.7); MONO # 0.9 K/uL (0.0-0.8); MONO % 8.3 % (0.0-10.0); NRBC % 0.1 % (0.0-2.0); PLATELET COUNT 105 K/uL (130-400); RED CELL DISTRIBUTION WIDTH 17.5 % (11.5-14.5); WHITE BLOOD COUNT 10.4 K/uL (4.8-10.8)
[2017-05-10 07:10] LABS: ALB/GLOB RATIO 1.2 (1.0-2.1); BILIRUBIN,TOTAL 0.4 mg/dL (0.2-1.3); CALCIUM 6.9 mg/dl (8.6-10.4); MAGNESIUM 1.8 mg/dL (1.6-2.3); POTASSIUM 4.4 mmol/L (3.6-5.2); TOTAL PROTEIN 3.5 g/dL (6.3-8.3)
[2017-05-10] MEDS: Multivitamin Vitamin B Complex (Nephro-Vite) Tab PO SCH (07:55)
[2017-05-10] MEDS: Nystatin 100,000 Units/gm Topical Pow(15 gm) TOP SCH ×4 (07:55→23:54)
--- NOTE | 2017-05-10 08:56 | CP.CCUPN ---
CCU Subjective - Physician Review Events Since Last Encounter (Free Text): 05/10/17 08:54 Patient with a history of dialysis, renal failure and congestive heart failure diabetes hypertension peripheral vascular disease history of left knee below- knee limitation. Patient was brought to the ICU because of the low blood pressure. Currently patient is not on any pressors at this time. But patient has a persistent lactic acid elevation. Patient is responding awake Patient is very weak Not in any distress at this time. Vital signs stable otherwise. Patient is in the hemodialysis. No abdominal tenderness or pain noted. Denies any nausea or vomiting at this time. Currently on multiple antibiotic. CCU Objective - Vital Signs / Intake & Output Vital Signs (Last 4 hours): Vital Signs Pulse Resp BP Pulse Ox 05/10/17 07:00 92 H 22 100 05/10/17 06:37 91 H 21 112/26 L 100 05/10/17 06:00 88 22 100 05/10/17 05:37 86 22 107/35 L 100 05/10/17 05:00 85 21 100 Intake and Output (Last 8hrs): Intake & Output 05/09/17 05/10/17 05/10/17 22:59 06:59 14:59 Intake Total 440 240 30 Output Total 1 Balance 439 240 30 Weight 143 lb 6 oz Intake: Intake, IV Amount 100 PICC 100 Tube Feeding 240 240 30 Other 100 Output: Urine/Stool Mix 1 Other: # Voids Urine, Voided 0 # Bowel Movements 0 - Physical Exam Head: Positive for: Atraumatic Pupils: Positive for: PERRL Extroacular Muscles: Positive for: EOMI Mouth: Positive for: Moist Mucous Membranes Respiratory/Chest: Positive for: Clear to Auscultation, Good Air Exchange. Negative for: Respiratory Distress, Accessory Muscle Use Cardiovascular: Positive for: Regular Rate and Rhythm Abdomen: Negative for: Tenderness, Distention Lower Extremity: Positive for: Other (s/p left AKA) Skin: Positive for: Warm, Dry Psychiatric: Positive for: Alert - Medications Active Medications: Active Medications Generic Name Dose Route Start Last Admin Trade Name Freq PRN Reason Stop Dose Admin Acetaminophen 650 mg 04/11/17 22:25 05/09/17 00:24 Tylenol 325mg Tab PO 650 mg Q6 PRN Administration Pain, moderate (4-7) Acetaminophen 650 mg 05/08/17 08:30 05/09/17 21:50 Tylenol 325mg Tab PO 650 mg Q6 PRN Administration Fever >100.4 F Apixaban 5 mg 04/30/17 10:00 05/09/17 17:50 Eliquis PO 5 mg BID ELINA Administration Brimonidine Tartrate 1 ml 04/12/17 10:00 05/09/17 18:00 Alphagan 0.2% Opht OU 1 drop TID ELINA Administration Collagenase 0 gm 04/19/17 18:00 05/10/17 06:24 Santyl TOP 1 applic Q12H ELINA Administration Epoetin Maxwell 10,000 unit 04/27/17 12:00 05/08/17 09:44 Procrit IV Not Given [facility] [place]gocalciferol 1 cap 04/11/17 22:30 05/09/17 21:48 Drisdol 50,000 Intl Units Cap PO 1 cap Q7D ELINA Administration Glucagon 1 mg 04/19/17 08:20 05/02/17 22:26 Glucagen Diagnostic Kit IM 1 mg STAT PRN Administration Hypoglycemia Protocol Protocol Hydromorphone HCl 0.5 mg 05/09/17 09:07 05/10/17 01:26 Dilaudid IVP 0.5 mg Q6H PRN Administration Pain, severe (8-10) Gentamicin Sulfate/Sodium Chloride 80 mg in 100 mls @ 100 mls/hr 04/22/17 14: 00 05/08/17 09:08 Gentamicin Iv 80 Mg Premix IVPB 100 mls/hr MWF ELINA Administration Fluconazole 100 mls @ 100 mls/hr 05/08/17 09:00 05/09/17 12:49 Diflucan Iv 200 Mg/100 Ml Ns IVPB 05/11/17 09:01 100 mls/hr Q24H ELINA Administration Meropenem 500 mg/ Sodium 100 mls @ 100 mls/hr 05/08/17 10:30 05/09/17 21:30 Chloride IVPB 100 mls/hr Q12H ELINA Administration Phenylephrine HCl 30 mg/ 253 mls @ 5.05 mls/hr 05/08/17 11:00 Dextrose IV .Q24H PRN TITRATE PER MD ORDER Protocol 10 MCG/MIN Insulin Glargine 10 unit 05/02/17 22:00 Lantus SC HS [facility] Insulin Human Regular 0 unit 05/09/17 00:00 12/17/17 06:34 Novolin R SC 8 unit Q6 ELINA Administration Protocol Latanoprost 0.02 ml 04/12/17 22:00 05/09/17 21:50 Xalatan Opht OU 0.02 ml HS ELINA Administration Lidocaine/Epinephrine 20 ml 05/10/17 11:00 Xylocaine 2% W Epi 1:100,000 IJ 05/10/17 11:01 ONCE ONE Midodrine 10 mg 04/27/17 11:04 05/09/17 11:02 Proamatine PO 10 mg ONCE PRN Administration Diastolic blood pressure Nystatin 1 gm 04/19/17 16:15 05/10/17 07:55 Nystop Topical Powder TOP 1 gra Q8H ELINA Administration Pantoprazole Sodium 40 mg 04/18/17 10:00 05/09/17 09:45 Protonix Susp PO 40 mg DAILY ELINA Administration Potassium Phos/Sodium Phos 1 pkt 05/09/17 10:00 05/09/17 17:50 Neutra-Phos PO 05/12/17 10:01 1 pkt BID ELINA Administration Rosuvastatin Calcium 10 mg 04/12/17 22:00 05/09/17 21:49 Crestor PO 10 mg HS ELINA Administration Thiamine HCl 100 mg 04/11/17 22:30 05/10/17 06:25 Vitamin B1 Inj IV 100 mg Q8H ELINA Administration Timolol Maleate 1 drop 04/12/17 10:00 05/09/17 17:52 Timoptic 0.5% Ophth Soln OU 1 drop BID ELINA Administration Vitamin B Complex/Vit C/Folic Acid 1 tab 04/12/17 08:00 05/10/17 07:55 Nephro-Alonzo PO 1 tab 0800 ELINA Administration - Patient Studies Lab Studies: Microbiology Studies 05/04/17 15:25 Blood Culture - Final Blood-Venous NO GROWTH AFTER 5 DAYS Gram Stain - Final TEST NOT PERFORMED 05/04/17 17:00 Blood Culture - Final Blood-Venous NO GROWTH AFTER 5 DAYS Gram Stain - Final TEST NOT PERFORMED 05/08/17 12:58 MRSA Culture (Admit) - Final Naris MRSA NOT DETECTED 05/08/17 10:16 Urine Culture - Final Urine,[place] Yeast Species 05/08/17 09:40 Blood Culture - Preliminary Blood-Venous NO GROWTH AFTER 24 HOURS 05/09/17 Unknown Gram Stain - Final Skin - Knee-Left 05/08/17 09:50 Blood Culture - Preliminary Blood-Venous NO GROWTH AFTER 24 HOURS Lab Studies 05/10/17 05/10/17 05/10/17 Range/Units 06:43 06:43 06:29 WBC 10.4 (4.8-10.8) K/uL RBC 3.32 L (3.80-5.20) Mil/uL Hgb 10.5 L (11.0-16.0) g/dL Hct 31.5 L (34.0-47.0) % MCV 94.8 (81.0-99.0) fL MCH 31.7 H (27.0-31.0) pg MCHC 33.4 (33.0-37.0) g/dL RDW 17.5 H (11.5-14.5) % Plt Count 105 L (130-400) K/uL MPV 10.9 (7.2-11.7) fL Neut % (Auto) 78.6 H (50.0-75.0) % Lymph % (Auto) 10.3 L (20.0-40.0) % Mcmullen % (Auto) 8.3 (0.0-10.0) % Eos % (Auto) 2.3 (0.0-4.0) % Baso % (Auto) 0.5 (0.0-2.0) % Neut # 8.2 H (1.8-7.0) K/uL Lymph # 1.1 (1.0-4.3) K/uL Mcmullen # 0.9 H (0.0-0.8) K/uL Eos # 0.2 (0.0-0.7) K/uL Baso # 0.1 (0.0-0.2) K/uL Neutrophils % (Manual) (50-75) % Band Neutrophils % (0-2) % Lymphocytes % (Manual) (20-40) % Monocytes % (Manual) (0-10) % Nucleated RBC % (0-0) % Toxic Granulation Platelet Estimate (NORMAL) Anisocytosis (manual) Sodium 132 (132-148) mmol/L Potassium 4.4 (3.6-5.2) mmol/L Chloride 99 (98-107) mmol/L Carbon Dioxide 19 L (22-30) mmol/L Anion Gap 18 (10-20) BUN 35 H (7-17) mg/dL Creatinine 1.7 H (0.7-1.2) mg/dL Est GFR ( Amer) 36 Est GFR (Non-Af Amer) 30 POC Glucose (mg/dL) 370 H (65-110) mg/dL Random Glucose 433 H* D (65-105) mg/dL Lactic Acid (0.7-2.1) mmol/L Calcium 6.9 L (8.6-10.4) mg/dl Phosphorus 2.0 L (2.5-4.5) mg/dL Magnesium 1.8 (1.6-2.3) mg/dL Total Bilirubin 0.4 (0.2-1.3) mg/dL AST 47 H D (14-36) U/L ALT 43 (9-52) U/L Alkaline Phosphatase 266 H D (38-126) U/L Total Protein 3.5 L (6.3-8.3) g/dL Albumin 1.9 L (3.5-5.0) g/dL Globulin 1.6 L (2.2-3.9) gm/dL Albumin/Globulin Ratio 1.2 (1.0-2.1) Random Gentamicin ug/mL Random Vancomycin ug/mL 05/10/17 05/09/17 05/09/17 Range/Units 01:01 17:57 12:12 WBC (4.8-10.8) K/uL RBC (3.80-5.20) Mil/uL Hgb (11.0-16.0) g/dL Hct (34.0-47.0) % MCV (81.0-99.0) fL MCH (27.0-31.0) pg MCHC (33.0-37.0) g/dL RDW (11.5-14.5) % Plt Count (130-400) K/uL MPV (7.2-11.7) fL Neut % (Auto) (50.0-75.0) % Lymph % (Auto) (20.0-40.0) % Mcmullen % (Auto) (0.0-10.0) % Eos % (Auto) (0.0-4.0) % Baso % (Auto) (0.0-2.0) % Neut # (1.8-7.0) K/uL Lymph # (1.0-4.3) K/uL Mcmullen # (0.0-0.8) K/uL Eos # (0.0-0.7) K/uL Baso # (0.0-0.2) K/uL Neutrophils % (Manual) (50-75) % Band Neutrophils % (0-2) % Lymphocytes % (Manual) (20-40) % Monocytes % (Manual) (0-10) % Nucleated RBC % (0-0) % Toxic Granulation Platelet Estimate (NORMAL) Anisocytosis (manual) Sodium (132-148) mmol/L Potassium (3.6-5.2) mmol/L Chloride (98-107) mmol/L Carbon Dioxide (22-30) mmol/L Anion Gap (10-20) BUN (7-17) mg/dL Creatinine (0.7-1.2) mg/dL Est GFR ( Amer) Est GFR (Non-Af Amer) POC Glucose (mg/dL) 293 H 209 H 185 H (65-110) mg/dL Random Glucose (65-105) mg/dL Lactic Acid (0.7-2.1) mmol/L Calcium (8.6-10.4) mg/dl Phosphorus (2.5-4.5) mg/dL Magnesium (1.6-2.3) mg/dL Total Bilirubin (0.2-1.3) mg/dL AST (14-36) U/L ALT (9-52) U/L Alkaline Phosphatase (38-126) U/L Total Protein (6.3-8.3) g/dL Albumin (3.5-5.0) g/dL Globulin (2.2-3.9) gm/dL Albumin/Globulin Ratio (1.0-2.1) Random Gentamicin ug/mL Random Vancomycin ug/mL 05/09/17 05/09/17 05/09/17 Range/Units 09:55 09:55 06:00 WBC (4.8-10.8) K/uL RBC (3.80-5.20) Mil/uL Hgb (11.0-16.0) g/dL Hct (34.0-47.0) % MCV (81.0-99.0) fL MCH (27.0-31.0) pg MCHC (33.0-37.0) g/dL RDW (11.5-14.5) % Plt Count (130-400) K/uL MPV (7.2-11.7) fL Neut % (Auto) (50.0-75.0) % Lymph % (Auto) (20.0-40.0) % Mcmullen % (Auto) (0.0-10.0) % Eos % (Auto) (0.0-4.0) % Baso % (Auto) (0.0-2.0) % Neut # (1.8-7.0) K/uL Lymph # (1.0-4.3) K/uL Mcmullen # (0.0-0.8) K/uL Eos # (0.0-0.7) K/uL Baso # (0.0-0.2) K/uL Neutrophils % (Manual) 57 (50-75) % Band Neutrophils % 26 H* (0-2) % Lymphocytes % (Manual) 9 L (20-40) % Monocytes % (Manual) 8 (0-10) % Nucleated RBC % 2 H (0-0) % Toxic Granulation Present Platelet Estimate Slightly decreased L (NORMAL) Anisocytosis (manual) Slight Sodium (132-148) mmol/L Potassium (3.6-5.2) mmol/L Chloride (98-107) mmol/L Carbon Dioxide (22-30) mmol/L Anion Gap (10-20) BUN (7-17) mg/dL Creatinine (0.7-1.2) mg/dL Est GFR ( Amer) Est GFR (Non-Af Amer) POC Glucose (mg/dL) (65-110) mg/dL Random Glucose (65-105) mg/dL Lactic Acid 7.7 H* (0.7-2.1) mmol/L Calcium (8.6-10.4) mg/dl Phosphorus (2.5-4.5) mg/dL Magnesium (1.6-2.3) mg/dL Total Bilirubin (0.2-1.3) mg/dL AST (14-36) U/L ALT (9-52) U/L Alkaline Phosphatase (38-126) U/L Total Protein (6.3-8.3) g/dL Albumin (3.5-5.0) g/dL Globulin (2.2-3.9) gm/dL Albumin/Globulin Ratio (1.0-2.1) Random Gentamicin 2.3 ug/mL Random Vancomycin 10.94 ug/mL Laboratory Results - last 24 hr 05/09/17 05/09/17 05/09/17 06:00 09:55 09:55 WBC RBC Hgb Hct MCV MCH MCHC RDW Plt Count MPV Neut % (Auto) Lymph % (Auto) Mcmullen % (Auto) Eos % (Auto) Baso % (Auto) Neut # Lymph # Mcmullen # Eos # Baso # Neutrophils % (Manual) 57 Band Neutrophils % 26 H* Lymphocytes % (Manual) 9 L Monocytes % (Manual) 8 Nucleated RBC % 2 H Toxic Granulation Present Platelet Estimate Slightly decreased L Anisocytosis (manual) Slight Sodium Potassium Chloride Carbon Dioxide Anion Gap BUN Creatinine Est GFR ( Amer) Est GFR (Non-Af Amer) POC Glucose (mg/dL) Random Glucose Lactic Acid 7.7 H* Calcium Phosphorus Magnesium Total Bilirubin AST ALT Alkaline Phosphatase Total Protein Albumin Globulin Albumin/Globulin Ratio Random Gentamicin 2.3 Random Vancomycin 10.94 05/09/17 05/09/17 05/10/17 12:12 17:57 01:01 WBC RBC Hgb Hct MCV MCH MCHC RDW Plt Count MPV Neut % (Auto) Lymph % (Auto) Mcmullen % (Auto) Eos % (Auto) Baso % (Auto) Neut # Lymph # Mcmullen # Eos # Baso # Neutrophils % (Manual) Band Neutrophils % Lymphocytes % (Manual) Monocytes % (Manual) Nucleated RBC % Toxic Granulation Platelet Estimate Anisocytosis (manual) Sodium Potassium Chloride Carbon Dioxide Anion Gap BUN Creatinine Est GFR ( Amer) Est GFR (Non-Af Amer) POC Glucose (mg/dL) 185 H 209 H 293 H Random Glucose Lactic Acid Calcium Phosphorus Magnesium Total Bilirubin AST ALT Alkaline Phosphatase Total Protein Albumin Globulin Albumin/Globulin Ratio Random Gentamicin Random Vancomycin 05/10/17 05/10/17 05/10/17 06:29 06:43 06:43 WBC 10.4 RBC 3.32 L Hgb 10.5 L Hct 31.5 L MCV 94.8 MCH 31.7 H MCHC 33.4 RDW 17.5 H Plt Count 105 L MPV 10.9 Neut % (Auto) 78.6 H Lymph % (Auto) 10.3 L Mcmullen % (Auto) 8.3 Eos % (Auto) 2.3 Baso % (Auto) 0.5 Neut # 8.2 H Lymph # 1.1 Mcmullen # 0.9 H Eos # 0.2 Baso # 0.1 Neutrophils % (Manual) Band Neutrophils % Lymphocytes % (Manual) Monocytes % (Manual) Nucleated RBC % Toxic Granulation Platelet Estimate Anisocytosis (manual) Sodium 132 Potassium 4.4 Chloride 99 Carbon Dioxide 19 L Anion Gap 18 BUN 35 H Creatinine 1.7 H Est GFR ( Amer) 36 Est GFR (Non-Af Amer) 30 POC Glucose (mg/dL) 370 H Random Glucose 433 H* D Lactic Acid Calcium 6.9 L Phosphorus 2.0 L Magnesium 1.8 Total Bilirubin 0.4 AST 47 H D ALT 43 Alkaline Phosphatase 266 H D Total Protein 3.5 L Albumin 1.9 L Globulin 1.6 L Albumin/Globulin Ratio 1.2 Random Gentamicin Random Vancomycin Fingerstick Blood Sugar Results: 209 Review of Systems - Review of Systems Systems not reviewed;Unavailable: Acuity of Condition All systems: reviewed and no additional remarkable complaints except Assessment/Plan (1) Diabetes mellitus Assessment and plan: 71-year-old female with a history of hypertension, diabetes, hypercholesterolemia, peripheral vascular disease, left below-knee and petition , most likely infected stump at this time. End-stage renal disease on dialysis. Hypertension. Unclear at this time. Most likely sepsis. Currently an antibiotic. Will repeat this lactate level again. Less likely is ischemic bowel. Abdomen is benign at this time. Continue to monitor. The lactate is normal patient can be transferred to floor. Current Visit: Yes Status: Acute (2) History of CHF (congestive heart failure) Current Visit: Yes Status: Acute (3) S/P BKA (below knee amputation) Current Visit: Yes Status: Acute Priority: High
[2017-05-10 09:01] LABS: EOSINOPHIL 4 % (0-4); LARGE PLATELETS PRESENT; NEUTROPHIL 65 % (50-75); TOTAL CELLS COUNTED 100
--- NOTE | 2017-05-10 09:42 | PN ---
DATE: LOCATION: ICU, 5. SUBJECTIVE: This 71 years old female seen with the ICU staff early in the morning today without significant clinical changes but intermittent periods of complain of lower back pain, severe at times as per the before. Patient tolerated PEG tube feeding without residual, bleeding, or resistance to be reported. The entire chart is reviewed including but not limited to the most recent lab and radiology study results, current and the previous medication list, current and the previous medical events, and the patient's hemoglobin today is 10.5, hematocrit 31.5 with thrombocytopenia of 105 with low CO2 content of 19 indicative of metabolic acidosis with increased BUN of 35, creatinine 1.7 with reported blood glucose level of 433 with lactic acid reported to be elevated at 7.7 with low calcium 6.9 as well as low phosphorus 2.0. The AST is slightly elevated to 47 with increased alkaline phosphatase to 266 with very low albumin 1.9 and low total protein of 3.6. Most recent chest x-ray done 2 days ago, report is seen, indicative of large bilateral effusions, left more than right with possible left-sided pneumonia. It has to be mentioned that the patient speaks mainly Mongolian and appears to be nonverbal this morning that could be secondary to medication given earlier. PHYSICAL EXAMINATION: GENERAL: A 71 years old female. VITAL SIGNS: Afebrile with pulse of 82 and respiratory rate of 20 to 22 with blood pressure of 116/38. HEENT: Showed pale, dry oral mucous membrane. Nonicteric sclerae. LUNGS: Scattered crepitation with decreased air entry at bases, especially in the left side. HEART: Positive S1 and S2. ABDOMEN: Soft. Bowel sounds are present with mild distention. PEG tube is in place without evidence of anterior abdominal wall cellulitis. No mass or organomegaly. EXTREMITIES: With evidence of status post left below-knee amputation stump is covered with clean dressing, apparently patient will need debridement. NEUROLOGIC: No reported new neurological deficits, sensory or motor. No focal deficit reported. Patient appeared to be somewhat lethargic. It has to be mentioned that the wound culture of the left stump lower extremity showed Gram-negative rods as well as Klebsiella pneumoniae, that is treated by the [facility] apartment leasing consultant, Dr. Wellington. IMPRESSION: 1. Malnutrition with hypoalbuminemia, hypoproteinemia. 2. Status post percutaneous endoscopic gastrostomy insertion, intact. 3. Septicemia, on antibiotics. 4. Pneumonia with bilateral pleural effusions. 5. Known history of pulmonary embolus. 6. End-stage renal disease, on hemodialysis. 7. History of hypertension, congestive heart failure with hyperlipidemia. 8. Poorly controlled diabetes mellitus. 9. Anemia secondary to above, no evidence of active bleeding in the meantime. 10. Electrolyte imbalance with hypocalcemia, hypophosphatemia. 11. Metabolic acidosis with increased lactic acid, most likely secondary to her septicemia. SUGGESTION: 1. Agree with your plan. 2. Surgical re-evaluation of the left lower extremity stump. 3. Due to the patient's severe low albumin, albumin IV to be kept in mind. 4. Subsequent increase of the PEG tube rate of infusion. 5. Guaiac all the stool daily x3. 6. No need for aggressive further GI workup. The case is to be discussed at length with the admitting MD. We will follow up closely with you. Karena Arias MD
[2017-05-10] MEDS: Fluconazole IV 200mg/100 ml NS 100 ML IVPB SCH (09:53)
[2017-05-10] MEDS: Pantoprazole 40 mg Susp UD PO SCH (09:57)
[2017-05-10] MEDS: Potassium & Sodium Phosphate PO SCH ×2 (09:57→17:54)
[2017-05-10] MEDS: Meropenem 500 MG in Sodium Chloride 0.9% 100 ML IVPB SCH ×2 (09:58→21:30)
[2017-05-10] MEDS: Brimonidine 0.2% Opth Sol (5ml) OU SCH ×3 (09:59→17:55)
[2017-05-10] MEDS ORDERED: Lidocaine 2% w Epi 1:100,000 Inj IJ ONE (11:00)
--- NOTE | 2017-05-10 11:02 | CP.PCM.PN ---
<Dominik Lee - Last Filed: 05/10/17 12:56> Subjective - Date & Time of Evaluation Date of Evaluation: 05/10/17 Time of Evaluation: 10:00 - Subjective Subjective: Medicine note- Dr. Myrick's service Patient was seen and examined at bedside. Patient appeared comfortable, and in no acute distress. Patient was lethargic, but arousable, but not able to answer questions as she kept falling back asleep. No events overnight, per nursing. Objective - Vital Signs/Intake and Output Vital Signs (last 24 hours): Temp Pulse Resp BP Pulse Ox 98.8 F 92 H 22 112/26 L 100 05/10/17 04:00 05/10/17 07:00 05/10/17 07:00 05/10/17 06:37 05/10/17 07:00 Intake and Output: 05/10/17 05/10/17 06:59 18:59 Intake Total 430 30 Output Total 1 Balance 429 30 - Medications Medications: Current Medications Acetaminophen (Tylenol 325mg Tab) 650 mg PO Q6 PRN PRN Reason: Pain, moderate (4-7) Last Admin: 05/09/17 00:24 Dose: 650 mg Acetaminophen (Tylenol 325mg Tab) 650 mg PO Q6 PRN PRN Reason: Fever >100.4 F Last Admin: 05/09/17 21:50 Dose: 650 mg Apixaban (Eliquis) 5 mg PO BID [facility] Last Admin: 05/10/17 09:57 Dose: 5 mg Brimonidine Tartrate (Alphagan 0.2% Opht) 1 ml OU TID [facility] Last Admin: 05/10/17 09:59 Dose: 1 drop Collagenase (Santyl) 0 gm TOP Q12H [facility] Last Admin: 05/10/17 06:24 Dose: 1 applic Epoetin Maxwell (Procrit) 10,000 unit IV MWF [facility] Last Admin: 05/08/17 09:44 Dose: Not Given Ergocalciferol (Drisdol 50,000 Intl Units Cap) 1 cap PO Q7D [facility] Last Admin: 05/09/17 21:48 Dose: 1 cap Glucagon (Glucagen Diagnostic Kit) 1 mg IM STAT PRN; Protocol PRN Reason: Hypoglycemia Protocol Last Admin: 05/02/17 22:26 Dose: 1 mg Hydromorphone HCl (Dilaudid) 0.5 mg IVP Q6H PRN PRN Reason: Pain, severe (8-10) Last Admin: 05/10/17 01:26 Dose: 0.5 mg Fluconazole (Diflucan Iv 200 Mg/100 Ml Ns) 100 mls @ 100 mls/hr IVPB Q24H [facility] Stop: 05/11/17 09:01 Last Admin: 05/10/17 09:53 Dose: 100 mls/hr Meropenem 500 mg/ Sodium (Chloride) 100 mls @ 100 mls/hr IVPB Q12H [facility] Last Admin: 05/10/17 09:58 Dose: 100 mls/hr Phenylephrine HCl 30 mg/ (Dextrose) 253 mls @ 5.05 mls/hr IV .Q24H PRN; Protocol; 10 MCG/MIN PRN Reason: TITRATE PER MD ORDER Insulin Glargine (Lantus) 10 unit SC HS [facility] Insulin Human Regular (Novolin R) 0 unit SC Q6 [facility] PRN Reason: Protocol Last Admin: 05/10/17 06:34 Dose: 8 unit Latanoprost (Xalatan Opht) 0.02 ml OU HS [facility] Last Admin: 05/09/17 21:50 Dose: 0.02 ml Lidocaine/Epinephrine (Xylocaine 2% W Epi 1:100,000) 20 ml IJ ONCE ONE Stop: 05/10/17 11:01 Midodrine (Proamatine) 10 mg PO ONCE PRN PRN Reason: Diastolic blood pressure Last Admin: 05/09/17 11:02 Dose: 10 mg Nystatin (Nystop Topical Powder) 1 gm TOP Q8H [facility] Last Admin: 05/10/17 07:55 Dose: 1 gra Pantoprazole Sodium (Protonix Susp) 40 mg PO DAILY [facility] Last Admin: 05/10/17 09:57 Dose: 40 mg Potassium Phos/Sodium Phos (Neutra-Phos) 1 pkt PO BID [facility] Stop: 05/12/17 10:01 Last Admin: 05/10/17 09:57 Dose: 1 pkt Rosuvastatin Calcium (Crestor) 10 mg PO HS [facility] Last Admin: 05/09/17 21:49 Dose: 10 mg Thiamine HCl (Vitamin B1 Inj) 100 mg IV Q8H [facility] Last Admin: 05/10/17 06:25 Dose: 100 mg Timolol Maleate (Timoptic 0.5% Ophth Soln) 1 drop OU BID [facility] Last Admin: 05/10/17 09:59 Dose: 1 drop Vitamin B Complex/Vit C/Folic Acid (Nephro-Alonzo) 1 tab PO 0800 [facility] Last Admin: 05/10/17 07:55 Dose: 1 tab - Labs Labs: 05/10/17 06:43 05/10/17 06:43 PT 14.1 SECONDS (9.7-12.2) H 05/05/17 11:49 INR 1.2 05/05/17 11:49 APTT 30 SECONDS (21-34) 05/05/17 11:49 - Constitutional Appears: No Acute Distress, Chronically Ill - Head Exam Head Exam: ATRAUMATIC, NORMAL INSPECTION, NORMOCEPHALIC - Eye Exam Pupil Exam: NORMAL ACCOMODATION, PERRL - ENT Exam ENT Exam: Mucous Membranes Moist - Respiratory Exam Respiratory Exam: Clear to Ausculation Bilateral, NORMAL BREATHING PATTERN. absent: Prolonged Expiratory Phase, Rales, Rhonchi, Wheezes - Cardiovascular Exam Cardiovascular Exam: REGULAR RHYTHM, +S1, +S2 - GI/Abdominal Exam GI & Abdominal Exam: Soft, Normal Bowel Sounds. absent: Tenderness, Diminished Bowel Sounds, Hernia, Hypoactive Bowel Sounds - Extremities Exam Extremities Exam: Normal Capillary Refill - Neurological Exam Neurological Exam: Alert. absent: Awake, Oriented x3 - Psychiatric Exam Psychiatric exam: Normal Affect, Normal Mood - Skin Skin Exam: Dry, Intact, Normal Color, Warm Additional comments: Stage III sacral decubitus ulcer lateral distal left bka is still draining fluid, erythematous Assessment and Plan - Assessment and Plan (Free Text) Assessment: (1) Sepsis Assessment & Plan: 05/10/17: WBC 10.4 bands 12, left shift Surgery team has no plans for further intervention Bedside tissue debridement performed by myself and Dr. Myrick- tissue sent out for culture- pending Collagenase applied, wound packed with gaze and tegaderm applied 05/09/17: WBC 9.0, bands 26, left shift Gentamicin and Vanco dose today Surgery to re-evaluate left BKA 05/08/17: Leukocytosis w. bandemia WBC 9.3, Bands 26, Left shift Lactate 4 initially - repeat despite bolus, 8 - transferred to ICU CXR (05/08/17): worsening left pleural effusion (f/u official read) Sacral culture (04/11/17) : Gram negative kendy, proteus mirabilis Blood culture (04/11/17): Gram positive cocci, Staphyl aureus and coag-negative staph, repeat blood culture (05/04/17): negative S/P Left BKA (04/11/17): Gram negative kendy, proteus mirabilis, klebsiella pneumonia and vancomycin resistance E.faecium UA/ UC (05/01/17): Negative - repeat Urine Culture (05/05/17): Yeast Medications/management: * Gentamicin 80mg IVPB HD * Zosyn 2.25gm IVPB Q8H * Linezolid 600mg IVPB Q12H ---> Started on 03/26, D/C on 05/08/17 * Continue Diflucan 100mg IV Q24H (started on 05/08/17) * Continue Meropenem 500mg IV Q12H (started on 05/08/17) * Discontinued Vancomycin 1gm IVPB on HD ID consult, Dr. Wellington---> Help appreciated Recommended lumbar spine CT without contrast to r/o osteomyelitis/ r/o source of infection: * Lumbar Spine CT: No fracture or spondylolisthesis or severe spinal stenosis identified. No gross disc herniation however MR in evaluating the intervertebral discs than CT and can be performed if clinically warranted. Latter recess stenosis symmetric at L4-5 caused by generalized disc bulging without causing generalized central canal stenosis overall. Stable likely nonaggressive bone lesion anterior segment superior endplate L4. Status: Acute (2) Pulmonary embolism Assessment & Plan: Chest CT angio: Filling defects are noted at both upper lobes pulmonary arteries suggestive of pulmonary embolus. Large bilateral pleural effusion. Mild cardiomegaly. Lpib-vy-snyukkhu pericardial effusion. Yvub-iq-qzcafkad anasarca. Lower lobe atelectasis due to pleural effusion. Medications: Eliquis 5mg PO BID (Held due to black stool, as per conversation with Dr. Daily and Patient's nurse, TARI, hold eliquis dose till Thursday) Status: Acute (3) Serum albumin decreased Assessment & Plan: Possibly secondary to decrease PO intake and appetite Medication/Management: * Still encourage PO intake * Supplemental drink: Glucerna TID * Continue to monitor with am labs * Megace 200mg PO TID (Appetite stimulant) Dr. Daily consulted-----> Help appreciated ( For PEG tube placement) - S/P PEG tube placement POD#1 - PEG tube in use, tube feeding in process Status: Acute (4) End stage renal disease on dialysis 05/07/17: Hold dialysis today due to hypotension; sepsis Dry Kiln Loader, Dr. Ambrose---> Help appreciated * Management as per recommendation Management/Medications: On HD (TTS) ---> MWF ( for this admission) * Via Left Arm shunt * PICC line inserted by IR 03/23/17 - DVT in R upper extremity Ergocalciferol 1 cap PO Q7D Procrit 10,000 unit IV MWF Ferric sodium gluconate 125 mg MWF Nephrovite Eliquis 5mg PO BID; for R upper extremity DVT ( Held due to black stool, as per conversation with Dr. Daily and Patient's nurse, TARI, hold eliquis dose till Thursday) Status: Chronic (5) Sacral decubitus ulcer, stage III Assessment & Plan: general Surgery, Dr. Broussard consulted * No surgical intervention at this time * Santyl for sacral decub ID, Dr. Wellington consulted * As per ID, antibiotics should be stopped after two weeks Wound care consult Lab: Gram Negative kendy, proteus mirabilis Medication: * Gentamicin 80mg IVPB HD---->Stop 05/08/17 * Linezolid 600mg IVPB Q12H (started 04/14/17)---> Stop 05/08/17 Status: Acute (6) S/P BKA (below knee amputation) Assessment & Plan: General Surgery, Dr. Broussard---> Help appreciated * Management as per recommendation * BKA (03/30/17) * Bedside debridement for left BKA stump (04/25/17) by Dr. Broussard ID, Dr. Wellington----> Help appreciated * Antibiotics should be stopped after two weeks. Wound care consult Daily dressing changes with pastorayl Lab: Wound culture: Gram negative kendy; proteus mirabilis, klebsiella pneumonia and vancomycin resistance E.faecium Medications: * Gentamicin 80mg IVPB HD * Linezolid 600mg IVPB Q12 Status: Acute (7) Anemia, chronic disease Assessment & Plan: H/H stable * transfused 2 units of PRBC on HD (04/15/17) * Transfuse 2 units of prbc (05/05/2017)---> repeat H/H post transfusion (11.0/ 33.1) * Continue to monitor with am labs Medication: * Procrit 10,000 unit IV TTS ( on HD) on this admission, M,W,F Status: Chronic (8) Glaucoma Assessment & Plan: Medications: * Timolol 0.5% OU BID * Latanoprost 0.02 ml OU HS * Brimonidine 1ml OU TID Status: Acute (9) Diabetes mellitus Assessment & Plan: HgbA1C (02/18/17): 8.7 Management/Medication: * Accuchecks * ISS high dose * Hypoglycemia protocol Status: Acute (10) History of CHF (congestive heart failure) Assessment & Plan: Echo (03/09/17): EF=61%, please refer to the full report for complete impression Medication: * Lasix 40mg PO daily (HOLD due to Hypotension) Status: Acute (11) Hypertension hypotensive this AM Medications: * Norvasc 5mg PO daily (Held due to chronic right peripheral edema) * Lasix 40mg IV Daily (hold, pt hypotensive) Status: Chronic (12) History of hyperlipidemia Assessment & Plan: Crestor 10mg PO HS Status: Acute (13) Prophylactic measure Assessment & Plan: GI: Protonix 40mg PO daily DVT: Eliquis 5mg PO daily: (Held due to black stool, as per conversation with Dr. Daily and Patient's nurse, TARI, hold eliquis dose till Thursday) PT and OT Disposition: CODE SEPSIS/MACHINE CONTAINER WASHER called this AM. Rising lactate despite bolus necessitated transfer to ICU. Lactate continues to rise, patient's vitals are stable, however neutrophils are still elevated despite low white count. Bedside debridement of tissue performed, tissue sent out for culture <Benson Myrick Jr. - Last Filed: 05/17/17 13:15> Objective - Vital Signs/Intake and Output Vital Signs (last 24 hours): Temp Pulse Resp BP Pulse Ox 99.5 F 134 H 16 135/48 L 100 05/17/17 08:00 05/17/17 11:00 05/17/17 11:00 05/17/17 11:00 05/17/17 11:00 Intake and Output: 05/17/17 05/17/17 06:59 18:59 Intake Total 1285.3 507.5 Output Total 100 Balance 1185.3 507.5 - Medications Medications: Current Medications Acetaminophen (Tylenol 650mg/20.3ml Solution Ud) 650 mg PO Q6 PRN PRN Reason: Fever >100.4 F Last Admin: 05/16/17 12:23 Dose: 650 mg Albumin Human (Albumin Human 5% (12.5 Gm/250 Ml)) 12.5 gm IV MWF PRN PRN Reason: hypotension Last Admin: 05/15/17 11:45 Dose: 12.5 gm Apixaban (Eliquis) 5 mg PO BID [facility] Last Admin: 05/15/17 19:20 Dose: 5 mg Brimonidine Tartrate (Alphagan 0.2% Opht) 1 ml OU TID [facility] Last Admin: 05/17/17 13:01 Dose: 1 applic Collagenase (Santyl) 0 gm TOP DAILY [facility] Last Admin: 05/17/17 09:54 Dose: 1 applic Epoetin Maxwell (Procrit) 10,000 unit IV MWF [facility] Last Admin: 05/15/17 11:11 Dose: 10,000 unit Ergocalciferol (Drisdol 50,000 Intl Units Cap) 1 cap PO Q7D [facility] Last Admin: 05/16/17 22:02 Dose: 1 cap Hydrocortisone Sodium Succinate (Solu-Cortef) 50 mg IV Q8H [facility] Last Admin: 05/17/17 12:58 Dose: Not Given Linezolid (Zyvox 600mg/300ml D5w) 600 mg in 300 mls @ 200 mls/hr IVPB Q12 [facility] Last Admin: 05/17/17 09:51 Dose: 200 mls/hr Propofol (Diprivan) 1,000 mg in 100 mls @ 1.762 mls/hr IV .Q24H PRN; Protocol; 5 MCG/KG/MIN PRN Reason: TITRATE PER MD ORDER Last Titration: 05/13/17 20:00 Dose: 10 mcg/kg/min, 3.524 mls/hr Micafungin Sodium 100 mg/ (Sodium Chloride) 100 mls @ 100 mls/hr IV Q24H [facility] Last Admin: 05/16/17 19:44 Dose: 100 mls/hr Norepinephrine Bitartrate 8 mg (/ Sodium Chloride) 250 mls @ 7.5 mls/hr IV .Q24H PRN; Protocol; 4 MCG/MIN PRN Reason: TITRATE PER MD ORDER Last Admin: 05/17/17 07:47 Dose: 20 mcg/min, 37.5 mls/hr Gentamicin Sulfate/Sodium Chloride (Gentamicin Iv 80 Mg Premix) 80 mg in 100 mls @ 100 mls/hr IVPB Q24H [facility] Last Admin: 05/17/17 12:56 Dose: 100 mls/hr Insulin Glargine (Lantus) 10 unit SC AMHS [facility] Last Admin: 05/17/17 09:52 Dose: Not Given Insulin Human Regular (Novolin R) 0 unit SC Q4 [facility] PRN Reason: Protocol Last Admin: 05/17/17 12:12 Dose: Not Given Latanoprost (Xalatan Opht) 0.02 ml OU HS [facility] Last Admin: 05/16/17 21:22 Dose: 0.02 ml Midodrine (Proamatine) 10 mg PO ONCE PRN PRN Reason: Diastolic blood pressure Last Admin: 05/09/17 11:02 Dose: 10 mg Nystatin (Nystop Topical Powder) 1 gm TOP Q8H [facility] Last Admin: 05/17/17 07:53 Dose: 1 applic Pantoprazole Sodium (Protonix Inj) 40 mg IVP DAILY [facility] Last Admin: 05/17/17 09:50 Dose: 40 mg Potassium Phos/Sodium Phos (Neutra-Phos) 1 pkt PO BIDPC [facility] Last Admin: 05/17/17 09:55 Dose: 1 pkt Rosuvastatin Calcium (Crestor) 10 mg PO HS [facility] Last Admin: 05/16/17 21:11 Dose: 10 mg Thiamine HCl (Vitamin B1 Inj) 100 mg IV Q8H [facility] Last Admin: 05/17/17 05:30 Dose: 100 mg Timolol Maleate (Timoptic 0.5% Ophth Soln) 1 drop OU BID [facility] Last Admin: 05/17/17 09:54 Dose: 1 drop Vitamin B Complex/Vit C/Folic Acid (Nephro-Alonzo) 1 tab PO 0800 [facility] Last Admin: 05/17/17 07:53 Dose: 1 tab - Labs Labs: 05/17/17 06:50 05/17/17 06:51 PT 14.8 SECONDS (9.7-12.2) H 05/16/17 06:58 INR 1.3 05/16/17 06:58 APTT 30 SECONDS (21-34) 05/16/17 06:58 Attending/Attestation - Attestation I have personally seen and examined this patient.: Yes I have fully participated in the care of the patient.: Yes I have reviewed all pertinent clinical information, including history, physical exam and plan: Yes Notes (Text): 05/17/17 13:14 Agree with resident note and plan of care
[2017-05-10] MEDS: Acetaminophen 650mg/20.3ml solution UD PO PRN (11:59)
[2017-05-10] MEDS ORDERED: Acetaminophen 650mg/20.3ml solution UD PO PRN (12:00)
--- NOTE | 2017-05-10 13:37 | PCM.SURG1 ---
Surgeon's Initial Post Op Note - Surgeon's Notes Surgeon: Dr. Myrick V Belt Skiver: Type of Anesthesia: Local Pre-Operative Diagnosis: infected wound- left leg Operative Findings: infected and devitalized tissue within leg wound Post-Operative Diagnosis: infected wound- left leg Operation Performed: bedside debridement of devitalized tissue and tissue sample collected for culture Specimen/Specimens Removed: wound tissue Estimated Blood Loss: EBL {In ML}: 5 Date of Surgery/Procedure: 05/10/17 Time of Surgery/Procedure: 12:20
--- NOTE | 2017-05-10 15:55 | CP.PCM.PN ---
Subjective - Date & Time of Evaluation Date of Evaluation: 05/10/17 Time of Evaluation: 08:00 - Subjective Subjective: s/p debridement rx in progress Objective - Vital Signs/Intake and Output Vital Signs (last 24 hours): Temp Pulse Resp BP Pulse Ox 100.7 F H 93 H 28 H 126/25 L 100 05/10/17 12:00 05/10/17 15:00 05/10/17 15:00 05/10/17 15:00 05/10/17 15:00 Intake and Output: 05/10/17 05/10/17 06:59 18:59 Intake Total 430 590 Output Total 1 0 Balance 429 590 - Medications Medications: Current Medications Acetaminophen (Tylenol 650mg/20.3ml Solution Ud) 650 mg PO Q6 PRN PRN Reason: Pain, moderate (4-7) Acetaminophen (Tylenol 650mg/20.3ml Solution Ud) 650 mg PO Q6 PRN PRN Reason: Fever >100.4 F Last Admin: 05/10/17 11:59 Dose: 650 mg Apixaban (Eliquis) 5 mg PO BID [facility] Last Admin: 05/10/17 09:57 Dose: 5 mg Brimonidine Tartrate (Alphagan 0.2% Opht) 1 ml OU TID [facility] Last Admin: 05/10/17 13:28 Dose: 1 drop Collagenase (Santyl) 0 gm TOP Q12H [facility] Last Admin: 05/10/17 06:24 Dose: 1 applic Epoetin Maxwell (Procrit) 10,000 unit IV MWF [facility] Last Admin: 05/08/17 09:44 Dose: Not Given Ergocalciferol (Drisdol 50,000 Intl Units Cap) 1 cap PO Q7D [facility] Last Admin: 05/09/17 21:48 Dose: 1 cap Glucagon (Glucagen Diagnostic Kit) 1 mg IM STAT PRN; Protocol PRN Reason: Hypoglycemia Protocol Last Admin: 05/02/17 22:26 Dose: 1 mg Hydromorphone HCl (Dilaudid) 0.5 mg IVP Q6H PRN PRN Reason: Pain, severe (8-10) Last Admin: 05/10/17 15:47 Dose: 0.5 mg Fluconazole (Diflucan Iv 200 Mg/100 Ml Ns) 100 mls @ 100 mls/hr IVPB Q24H [facility] Stop: 05/11/17 09:01 Last Admin: 05/10/17 09:53 Dose: 100 mls/hr Meropenem 500 mg/ Sodium (Chloride) 100 mls @ 100 mls/hr IVPB Q12H [facility] Last Admin: 05/10/17 09:58 Dose: 100 mls/hr Phenylephrine HCl 30 mg/ (Dextrose) 253 mls @ 5.05 mls/hr IV .Q24H PRN; Protocol; 10 MCG/MIN PRN Reason: TITRATE PER MD ORDER Insulin Glargine (Lantus) 10 unit SC HS [facility] Insulin Human Regular (Novolin R) 0 unit SC Q6 [facility] PRN Reason: Protocol Last Admin: 05/10/17 12:00 Dose: 8 unit Latanoprost (Xalatan Opht) 0.02 ml OU HS [facility] Last Admin: 05/09/17 21:50 Dose: 0.02 ml Midodrine (Proamatine) 10 mg PO ONCE PRN PRN Reason: Diastolic blood pressure Last Admin: 05/09/17 11:02 Dose: 10 mg Nystatin (Nystop Topical Powder) 1 gm TOP Q8H [facility] Last Admin: 05/10/17 15:49 Dose: 1 gra Pantoprazole Sodium (Protonix Susp) 40 mg PO DAILY [facility] Last Admin: 05/10/17 09:57 Dose: 40 mg Potassium Phos/Sodium Phos (Neutra-Phos) 1 pkt PO BID [facility] Stop: 05/12/17 10:01 Last Admin: 05/10/17 09:57 Dose: 1 pkt Rosuvastatin Calcium (Crestor) 10 mg PO HS [facility] Last Admin: 05/09/17 21:49 Dose: 10 mg Thiamine HCl (Vitamin B1 Inj) 100 mg IV Q8H [facility] Last Admin: 05/10/17 13:32 Dose: 100 mg Timolol Maleate (Timoptic 0.5% Ophth Soln) 1 drop OU BID [facility] Last Admin: 05/10/17 09:59 Dose: 1 drop Vitamin B Complex/Vit C/Folic Acid (Nephro-Alonzo) 1 tab PO 0800 [facility] Last Admin: 05/10/17 07:55 Dose: 1 tab - Labs Labs: 05/10/17 06:43 05/10/17 06:43 PT 14.1 SECONDS (9.7-12.2) H 05/05/17 11:49 INR 1.2 05/05/17 11:49 APTT 30 SECONDS (21-34) 05/05/17 11:49 - Constitutional Appears: Non-toxic, Chronically Ill - Head Exam Head Exam: NORMOCEPHALIC - Eye Exam Eye Exam: PERRL - ENT Exam ENT Exam: Mucous Membranes Dry - Neck Exam Neck Exam: absent: Thyromegaly - Respiratory Exam Respiratory Exam: Decreased Breath Sounds - Cardiovascular Exam Cardiovascular Exam: Clicks - GI/Abdominal Exam GI & Abdominal Exam: Distended - Rectal Exam Rectal Exam: Deferred Assessment and Plan (1) Elevated WBC count Status: Acute (2) S/P BKA (below knee amputation) Status: Acute (3) Sacral decubitus ulcer, stage III Status: Acute (4) Sepsis Status: Acute
[2017-05-10] MEDS: Latanoprost 2.5 ml Opht Soln OU SCH (21:00)
[2017-05-11] MEDS: Acetaminophen 650mg/20.3ml solution UD PO PRN (04:10)
[2017-05-11] MEDS: (Novolin R) Insulin Human Regular 100 units/ml vial SC SCH ×3 (05:41→17:42)
[2017-05-11] MEDS: Thiamine 100 mg/ml Inj IV SCH ×3 (05:42→21:32)
[2017-05-11] MEDS: Collagenase 250 Units/gm Ointment(30 gm) TOP SCH (06:00)
[2017-05-11 06:30] LABS: BASO # 0.1 K/uL (0.0-0.2); BASO % 1.2 % (0.0-2.0); EOS # 0.1 K/uL (0.0-0.7); EOS % 0.7 % (0.0-4.0); HEMATOCRIT 30.4 % (34.0-47.0); LYMPH # 1.3 K/uL (1.0-4.3); LYMPH % 10.8 % (20.0-40.0); MEAN CELL VOLUME 94.5 fL (81.0-99.0); MEAN CORPUSCULAR HEMOGLOBIN 31.2 pg (27.0-31.0); MEAN PLATELET VOLUME 10.6 fL (7.2-11.7); MONO % 8.3 % (0.0-10.0); NRBC % 0.2 % (0.0-2.0); RED CELL DISTRIBUTION WIDTH 17.4 % (11.5-14.5); WHITE BLOOD COUNT 11.8 K/uL (4.8-10.8)
[2017-05-11 06:41] LABS: ALB/GLOB RATIO 0.8 (1.0-2.1); BILIRUBIN,TOTAL 0.3 mg/dL (0.2-1.3); CALCIUM 7.1 mg/dl (8.6-10.4); PHOSPHOROUS 1.5 mg/dL (2.5-4.5); POTASSIUM 4.1 mmol/L (3.6-5.2); TOTAL PROTEIN 4.3 g/dL (6.3-8.3)
[2017-05-11] MEDS: Nystatin 100,000 Units/gm Topical Pow(15 gm) TOP SCH ×3 (07:59→23:01)
[2017-05-11] MEDS: Multivitamin Vitamin B Complex (Nephro-Vite) Tab PO SCH (07:59)
[2017-05-11] MEDS: Fluconazole IV 200mg/100 ml NS 100 ML IVPB SCH (08:12)
[2017-05-11] MEDS ORDERED: NS IVPB SCH (08:15)
[2017-05-11] MEDS ORDERED: FLUCONAZOLE 400 MG/200 ML IVPB SCH (08:15)
[2017-05-11] MEDS: HYDROmorphone 1 mg/ml ISec IVP PRN ×2 (08:26→17:39)
--- NOTE | 2017-05-11 09:05 | RAD ---
HISTORY: CHECK PEG TUBE PLACEMENT W CONTRAST COMPARISON: No prior. FINDINGS: BOWEL: Confirmation of contrast within duodenum following injection through the PEG tube. Contrast is also seen in the stomach proximally and in the esophagus. BONES: Normal. OTHER FINDINGS: None. IMPRESSION: Confirmation of PEG tube placement within the distal stomach.
[2017-05-11] MEDS: Pantoprazole 40 mg Susp UD PO SCH (09:51)
[2017-05-11] MEDS: Potassium & Sodium Phosphate PO SCH ×2 (09:51→17:28)
[2017-05-11] MEDS: Brimonidine 0.2% Opth Sol (5ml) OU SCH ×3 (09:55→17:25)
[2017-05-11] MEDS ORDERED: Albumin Human 25% (12.5 gm/50 ml) IV ONE (12:15)
[2017-05-11] MEDS: Epoetin Alfa 10,000 unit/ml Dialysis IV SCH (12:39)
--- NOTE | 2017-05-11 13:29 | PN ---
DATE: LOCATION: ICU 5. SUBJECTIVE: This is a 71 years old female, seen in rounds during hemodialysis, appeared to be somewhat sleepy, slightly lethargic, but no reported active bleeding. The entire chart is reviewed including but not limited to the most recent lab and radiology study results, current and the previous medication list, current and the previous medical events. Case discussed with the staff in the Intensive Care Unit and the patient is status post debridement. Had been on IV antibiotics. Today's lab showed white blood cells of 11.8 with low hemoglobin 10.0, low hematocrit 30.4 with normal platelet count, but with increased blood glucose level to 422. Increased BUN 46, creatinine 1.8 with low calcium 7.1, low phosphorus 1.5 with mildly elevated liver function test, but low albumin 1.9 for which albumin IV to be kept in mind. It has to be mentioned that the patient tolerating PEG feeding well without an reported active bleeding, residual or resistant. PHYSICAL EXAMINATION: GENERAL: A 71 years old female. VITAL SIGNS: Low-grade temperature of 99.3, pulse of 94, blood pressure of 104/38 with respiratory rate of 20 to 24. HEENT: Showed pale dry oral mucous membrane. Nonicteric sclerae. LUNGS: Few scattered crepitation. Decreased air entry at bases. HEART: Positive S1 and S2 with increased rate. ABDOMEN: Soft. Bowel sounds are present, but mildly hypoactive. PEG tube is in place without evidence of acute anterior abdominal wall cellulitis with well-formed stoma covered with clean dressing. No mass or organomegaly. NEUROLOGIC: No reported new neurological deficits, sensory or motor. IMPRESSION: 1. Hypoalbuminemia with malnutrition. 2. Dysphagia. 3. Status post percutaneous endoscopic gastrostomy insertion. 4. Decubitus ulceration with status post debridement. 5. Septicemia secondary to above. Bilateral pleural effusion with pneumonia by radiology study results. 6. Known history of but not limited to hypertension, congestive heart failure, hyperlipidemia as well as pulmonary embolus. 7. End-stage renal disease, on hemodialysis. 8. Electrolyte imbalance secondary to above. SUGGESTION: 1. Agree with your plan. 2. Increase the rate of feeding as tolerated. Karena Arias MD
[2017-05-11] MEDS: Meropenem 500 MG in Sodium Chloride 0.9% 100 ML IVPB SCH (15:02)
--- NOTE | 2017-05-11 15:12 | CP.CCUPN ---
CCU Subjective - Physician Review Events Since Last Encounter (Free Text): 05/11/17 15:13 Patient seen and examined at bedside. Patient resting in bed. No acute events overnight. Patient nonverbal and ROS unattainable. CCU Objective - Vital Signs / Intake & Output Vital Signs (Last 4 hours): Vital Signs Temp Pulse Resp BP BP Pulse Ox 05/11/17 13:50 92/41 L 05/11/17 13:30 98.4 F 97 H 23 123/35 L 05/11/17 12:40 96/36 L 05/11/17 12:20 106/35 L 05/11/17 12:04 96 H 31 H 101/33 L 99 05/11/17 12:00 99.3 F 05/11/17 11:35 91/43 L 05/11/17 11:20 104/35 L 05/11/17 11:05 105/31 L 05/11/17 11:04 97 H 20 105/31 L 100 05/11/17 10:55 104/43 L Intake and Output (Last 8hrs): Intake & Output 05/10/17 05/11/17 05/11/17 22:59 06:59 14:59 Intake Total 400 240 340 Output Total 1 Balance 399 240 340 Weight 141 lb 8 oz Intake: Intake, IV Amount 100 100 PICC 100 PICC Y Port 100 Tube Feeding 240 240 90 Other 60 150 Output: Urine/Stool Mix 1 Other: # Bowel Movements 1 1 1 - Physical Exam Physical Exam Limitations: Positive for: Altered Mental Status Head: Positive for: Atraumatic Pupils: Positive for: PERRL Extroacular Muscles: Positive for: EOMI Mouth: Positive for: Moist Mucous Membranes Respiratory/Chest: Positive for: Good Air Exchange, Rhonchi (inspiratory). Negative for: Respiratory Distress, Accessory Muscle Use Cardiovascular: Positive for: Regular Rate and Rhythm Abdomen: Negative for: Tenderness, Distention Lower Extremity: Positive for: Other (s/p left AKA, wound of surgical site, wound vac to be placed) Neurological: Positive for: Other (GCS:9) Skin: Positive for: Warm, Dry Psychiatric: Positive for: Alert - Medications Active Medications: Active Medications Generic Name Dose Route Start Last Admin Trade Name Freq PRN Reason Stop Dose Admin Apixaban 5 mg 04/30/17 10:00 05/11/17 10:06 Eliquis PO 5 mg BID ELINA Administration Brimonidine Tartrate 1 ml 04/12/17 10:00 05/11/17 09:55 Alphagan 0.2% Opht OU 1 drop TID ELINA Administration Collagenase 0 gm 04/19/17 18:00 05/11/17 06:00 Santyl TOP 1 applic Q12H ELINA Administration Epoetin Maxwell 10,000 unit 04/27/17 12:00 05/11/17 12:39 Procrit IV 10,000 unit MWF ELINA Administration Ergocalciferol 1 cap 04/11/17 22:30 05/09/17 21:48 Drisdol 50,000 Intl Units Cap PO 1 cap Q7D ELINA Administration Glucagon 1 mg 04/19/17 08:20 05/02/17 22:26 Glucagen Diagnostic Kit IM 1 mg STAT PRN Administration Hypoglycemia Protocol Protocol Hydromorphone HCl 0.5 mg 05/11/17 08:30 05/11/17 08:26 Dilaudid IVP 0.5 mg Q6H PRN Administration Pain, severe (8-10) Meropenem 500 mg/ Sodium 100 mls @ 100 mls/hr 05/08/17 10:30 05/10/17 21:30 Chloride IVPB 100 mls/hr Q12H ELINA Administration Fluconazole 100 mls @ 100 mls/hr 05/11/17 08:15 05/11/17 08:12 Diflucan Iv 200 Mg/100 Ml Ns IVPB 100 mls/hr Q24H ELINA Administration Insulin Glargine 10 unit 05/02/17 22:00 Lantus SC HS ELINA Insulin Human Regular 0 unit 05/09/17 00:00 05/11/17 12:33 Novolin R SC 10 unit Q6 ELINA Administration Protocol Latanoprost 0.02 ml 04/12/17 22:00 05/10/17 21:00 Xalatan Opht OU 0.02 ml HS ELINA Administration Midodrine 10 mg 04/27/17 11:04 05/09/17 11:02 Proamatine PO 10 mg ONCE PRN Administration Diastolic blood pressure Nystatin 1 gm 04/19/17 16:15 05/11/17 07:59 Nystop Topical Powder TOP 1 gra Q8H ELINA Administration Pantoprazole Sodium 40 mg 04/18/17 10:00 05/11/17 09:51 Protonix Susp PO 40 mg DAILY ELINA Administration Potassium Phos/Sodium Phos 1 pkt 05/09/17 10:00 05/11/17 09:51 Neutra-Phos PO 05/12/17 10:01 1 pkt BID ELINA Administration Rosuvastatin Calcium 10 mg 04/12/17 22:00 05/10/17 21:00 Crestor PO 10 mg HS ELINA Administration Thiamine HCl 100 mg 04/11/17 22:30 05/11/17 05:42 Vitamin B1 Inj IV 100 mg Q8H ELINA Administration Timolol Maleate 1 drop 04/12/17 10:00 05/11/17 09:56 Timoptic 0.5% Ophth Soln OU 1 drop BID ELINA Administration Vitamin B Complex/Vit C/Folic Acid 1 tab 04/12/17 08:00 05/11/17 07:59 Nephro-Alonzo PO 1 tab 0800 ELINA Administration - Patient Studies Lab Studies: Microbiology Studies 05/09/17 Unknown Gram Stain - Final Skin - Knee-Left Wound Culture - Preliminary Yeast Species 05/08/17 09:40 Blood Culture - Preliminary Blood-Venous NO GROWTH AFTER 3 DAYS 05/08/17 09:50 Blood Culture - Preliminary Blood-Venous NO GROWTH AFTER 3 DAYS Lab Studies 05/11/17 05/11/17 05/11/17 Range/Units 12:07 12:05 11:25 WBC (4.8-10.8) K/uL RBC (3.80-5.20) Mil/uL Hgb (11.0-16.0) g/dL Hct (34.0-47.0) % MCV (81.0-99.0) fL MCH (27.0-31.0) pg MCHC (33.0-37.0) g/dL RDW (11.5-14.5) % Plt Count (130-400) K/uL MPV (7.2-11.7) fL Neut % (Auto) (50.0-75.0) % Lymph % (Auto) (20.0-40.0) % [place] % (Auto) (0.0-10.0) % Eos % (Auto) (0.0-4.0) % Baso % (Auto) (0.0-2.0) % Neut # (1.8-7.0) K/uL Lymph # (1.0-4.3) K/uL [place] # (0.0-0.8) K/uL Eos # (0.0-0.7) K/uL Baso # (0.0-0.2) K/uL Sodium (132-148) mmol/L Potassium (3.6-5.2) mmol/L Chloride (98-107) mmol/L Carbon Dioxide (22-30) mmol/L Anion Gap (10-20) BUN (7-17) mg/dL Creatinine (0.7-1.2) mg/dL Est GFR ( Amer) Est GFR (Non-Af Amer) POC Glucose (mg/dL) 422 H* 416 H* (65-110) mg/dL Random Glucose (65-105) mg/dL Lactic Acid 1.2 (0.7-2.1) mmol/L Calcium (8.6-10.4) mg/dl Phosphorus (2.5-4.5) mg/dL Magnesium (1.6-2.3) mg/dL Total Bilirubin (0.2-1.3) mg/dL AST (14-36) U/L ALT (9-52) U/L Alkaline Phosphatase (38-126) U/L Total Protein (6.3-8.3) g/dL Albumin (3.5-5.0) g/dL Globulin (2.2-3.9) gm/dL Albumin/Globulin Ratio (1.0-2.1) 05/11/17 05/11/17 05/11/17 Range/Units 06:20 06:16 05:08 WBC 11.8 H (4.8-10.8) K/uL RBC 3.22 L (3.80-5.20) Mil/uL Hgb 10.0 L (11.0-16.0) g/dL Hct 30.4 L (34.0-47.0) % MCV 94.5 (81.0-99.0) fL MCH 31.2 H (27.0-31.0) pg MCHC 33.0 (33.0-37.0) g/dL RDW 17.4 H (11.5-14.5) % Plt Count 132 (130-400) K/uL MPV 10.6 (7.2-11.7) fL Neut % (Auto) 79.0 H (50.0-75.0) % Lymph % (Auto) 10.8 L (20.0-40.0) % [place] % (Auto) 8.3 (0.0-10.0) % Eos % (Auto) 0.7 (0.0-4.0) % Baso % (Auto) 1.2 (0.0-2.0) % Neut # 9.3 H (1.8-7.0) K/uL Lymph # 1.3 (1.0-4.3) K/uL [place] # 1.0 H (0.0-0.8) K/uL Eos # 0.1 (0.0-0.7) K/uL Baso # 0.1 (0.0-0.2) K/uL Sodium 134 (132-148) mmol/L Potassium 4.1 (3.6-5.2) mmol/L Chloride 101 (98-107) mmol/L Carbon Dioxide 25 (22-30) mmol/L Anion Gap 12 (10-20) BUN 46 H (7-17) mg/dL Creatinine 1.9 H (0.7-1.2) mg/dL Est GFR ( Amer) 32 Est GFR (Non-Af Amer) 26 POC Glucose (mg/dL) 183 H (65-110) mg/dL Random Glucose 288 H (65-105) mg/dL Lactic Acid (0.7-2.1) mmol/L Calcium 7.1 L (8.6-10.4) mg/dl Phosphorus 1.5 L (2.5-4.5) mg/dL Magnesium 2.0 (1.6-2.3) mg/dL Total Bilirubin 0.3 (0.2-1.3) mg/dL AST 67 H D (14-36) U/L ALT 71 H D (9-52) U/L Alkaline Phosphatase 306 H (38-126) U/L Total Protein 4.3 L (6.3-8.3) g/dL Albumin 1.9 L (3.5-5.0) g/dL Globulin 2.5 (2.2-3.9) gm/dL Albumin/Globulin Ratio 0.8 L (1.0-2.1) 05/11/17 05/10/17 05/10/17 Range/Units 02:16 23:50 17:25 WBC (4.8-10.8) K/uL RBC (3.80-5.20) Mil/uL Hgb (11.0-16.0) g/dL Hct (34.0-47.0) % MCV (81.0-99.0) fL MCH (27.0-31.0) pg MCHC (33.0-37.0) g/dL RDW (11.5-14.5) % Plt Count (130-400) K/uL MPV (7.2-11.7) fL Neut % (Auto) (50.0-75.0) % Lymph % (Auto) (20.0-40.0) % [place] % (Auto) (0.0-10.0) % Eos % (Auto) (0.0-4.0) % Baso % (Auto) (0.0-2.0) % Neut # (1.8-7.0) K/uL Lymph # (1.0-4.3) K/uL [place] # (0.0-0.8) K/uL Eos # (0.0-0.7) K/uL Baso # (0.0-0.2) K/uL Sodium (132-148) mmol/L Potassium (3.6-5.2) mmol/L Chloride (98-107) mmol/L Carbon Dioxide (22-30) mmol/L Anion Gap (10-20) BUN (7-17) mg/dL Creatinine (0.7-1.2) mg/dL Est GFR ( Amer) Est GFR (Non-Af Amer) POC Glucose (mg/dL) 325 H 361 H 162 H (65-110) mg/dL Random Glucose (65-105) mg/dL Lactic Acid (0.7-2.1) mmol/L Calcium (8.6-10.4) mg/dl Phosphorus (2.5-4.5) mg/dL Magnesium (1.6-2.3) mg/dL Total Bilirubin (0.2-1.3) mg/dL AST (14-36) U/L ALT (9-52) U/L Alkaline Phosphatase (38-126) U/L Total Protein (6.3-8.3) g/dL Albumin (3.5-5.0) g/dL Globulin (2.2-3.9) gm/dL Albumin/Globulin Ratio (1.0-2.1) Laboratory Results - last 24 hr 05/10/17 05/10/17 05/11/17 17:25 23:50 02:16 WBC RBC Hgb Hct MCV MCH MCHC RDW Plt Count MPV Neut % (Auto) Lymph % (Auto) [place] % (Auto) Eos % (Auto) Baso % (Auto) Neut # Lymph # [place] # Eos # Baso # Sodium Potassium Chloride Carbon Dioxide Anion Gap BUN Creatinine Est GFR ( Amer) Est GFR (Non-Af Amer) POC Glucose (mg/dL) 162 H 361 H 325 H Random Glucose Lactic Acid Calcium Phosphorus Magnesium Total Bilirubin AST ALT Alkaline Phosphatase Total Protein Albumin Globulin Albumin/Globulin Ratio 05/11/17 05/11/17 05/11/17 05:08 06:16 06:20 WBC 11.8 H RBC 3.22 L Hgb 10.0 L Hct 30.4 L MCV 94.5 MCH 31.2 H MCHC 33.0 RDW 17.4 H Plt Count 132 MPV 10.6 Neut % (Auto) 79.0 H Lymph % (Auto) 10.8 L [place] % (Auto) 8.3 Eos % (Auto) 0.7 Baso % (Auto) 1.2 Neut # 9.3 H Lymph # 1.3 [place] # 1.0 H Eos # 0.1 Baso # 0.1 Sodium 134 Potassium 4.1 Chloride 101 Carbon Dioxide 25 Anion Gap 12 BUN 46 H Creatinine 1.9 H Est GFR ( Amer) 32 Est GFR (Non-Af Amer) 26 POC Glucose (mg/dL) 183 H Random Glucose 288 H Lactic Acid Calcium 7.1 L Phosphorus 1.5 L Magnesium 2.0 Total Bilirubin 0.3 AST 67 H D ALT 71 H D Alkaline Phosphatase 306 H Total Protein 4.3 L Albumin 1.9 L Globulin 2.5 Albumin/Globulin Ratio 0.8 L 05/11/17 05/11/17 05/11/17 11:25 12:05 12:07 WBC RBC Hgb Hct MCV MCH MCHC RDW Plt Count MPV Neut % (Auto) Lymph % (Auto) [place] % (Auto) Eos % (Auto) Baso % (Auto) Neut # Lymph # [place] # Eos # Baso # Sodium Potassium Chloride Carbon Dioxide Anion Gap BUN Creatinine Est GFR ( Amer) Est GFR (Non-Af Amer) POC Glucose (mg/dL) 416 H* 422 H* Random Glucose Lactic Acid 1.2 Calcium Phosphorus Magnesium Total Bilirubin AST ALT Alkaline Phosphatase Total Protein Albumin Globulin Albumin/Globulin Ratio Fingerstick Blood Sugar Results: 422 Review of Systems - Review of Systems Systems not reviewed;Unavailable: Altered Mental Status Assessment/Plan - Assessment and Plan (Free Text) Plan: Neuro: Altered mental status, etiology unknown. Dilaudid 0.5 mg IVP Q6H HEENT: brimonidine 0.2% 1 ml OU TID latanoprost 0.02 ml OU timolol 1 drop OU BID Respiratory: Chest CT angio: Filling defects are noted at both upper lobes pulmonary arteries suggestive of pulmonary embolus. Large bilateral pleural effusion. Mild cardiomegaly. [id number] pericardial effusion. [id number] anasarca. Lower lobe atelectasis due to pleural effusion. Hem: Eliquis 5mg PO daily Procrit Nephro: ESRD on hemodialysis Dr. Ambrose consulted, help appreciated Pt undergoes hemodialysis Tues/Thurs/Sat Ergocalcierol 1 capsule PO Q7D Procrit Fluid, Electrolytes, Diet Neutrophos BID Tube feeds Thiamine Vitamin B complex Endo: DM ISS Lantus 10units SC HS on hold Hypoglycemic protocol Cardio: hx of diastolic CHF MAP >65, EF61% Midodrine 10 mg PRN Crestor 10mg PO HS ID: Sepsis WBC 9.3 - Bands 26 Lactate 4.1 - f/u lactic acid q4h 8.0, 7.3, 6.4 Infectious Disease, Dr. Wellington consulted, help appreciated abx per ID f/u blood cultures and lactate Fluconazole 200mg IVPB q24h Nystatin 1g TOP Q8 Meropenem 500mg IVPB q12h wound vac for left AKA wound - possible source of infection Prophylactic Care: GI: Protonix 40mg PO daily
--- NOTE | 2017-05-11 17:47 | CP.PCM.PN ---
Subjective - Date & Time of Evaluation Date of Evaluation: 05/11/17 Time of Evaluation: 15:00 - Subjective Subjective: SEEN ON RENAL F/U SEEN ON HD .. BP IS RUNNING LOW NO CHANGE IN CLINICAL CONDITIONS Objective - Vital Signs/Intake and Output Vital Signs (last 24 hours): Temp Pulse Resp BP Pulse Ox 98.4 F 97 H 23 92/41 L 99 05/11/17 13:30 05/11/17 13:30 05/11/17 13:30 05/11/17 13:50 05/11/17 12:04 Intake and Output: 05/11/17 05/11/17 06:59 18:59 Intake Total 460 340 Output Total 1 Balance 459 340 - Medications Medications: Current Medications Apixaban (Eliquis) 5 mg PO BID [facility] Last Admin: 05/11/17 17:28 Dose: 5 mg Brimonidine Tartrate (Alphagan 0.2% Opht) 1 ml OU TID [facility] Last Admin: 05/11/17 17:25 Dose: 1 drop Epoetin Maxwell (Procrit) 10,000 unit IV MWF [facility] Last Admin: 05/11/17 12:39 Dose: 10,000 unit Ergocalciferol (Drisdol 50,000 Intl Units Cap) 1 cap PO Q7D [facility] Last Admin: 05/09/17 21:48 Dose: 1 cap Glucagon (Glucagen Diagnostic Kit) 1 mg IM STAT PRN; Protocol PRN Reason: Hypoglycemia Protocol Last Admin: 05/02/17 22:26 Dose: 1 mg Hydromorphone HCl (Dilaudid) 0.5 mg IVP Q6H PRN PRN Reason: Pain, severe (8-10) Last Admin: 05/11/17 17:39 Dose: 0.5 mg Fluconazole (Diflucan Iv 200 Mg/100 Ml Ns) 100 mls @ 100 mls/hr IVPB Q24H [facility] Last Admin: 05/11/17 08:12 Dose: 100 mls/hr Imipenem/Cilastatin Sodium 500 (mg/ Dextrose) 100 mls @ 100 mls/hr IVPB Q12H [facility] Insulin Glargine (Lantus) 10 unit SC HS ELINA Insulin Human Regular (Novolin R) 0 unit SC Q6 ELINA PRN Reason: Protocol Last Admin: 05/11/17 17:42 Dose: 3 unit Latanoprost (Xalatan Opht) 0.02 ml OU HS [facility] Last Admin: 05/10/17 21:00 Dose: 0.02 ml Midodrine (Proamatine) 10 mg PO ONCE PRN PRN Reason: Diastolic blood pressure Last Admin: 05/09/17 11:02 Dose: 10 mg Nystatin (Nystop Topical Powder) 1 gm TOP Q8H [facility] Last Admin: 05/11/17 17:24 Dose: 1 applic Pantoprazole Sodium (Protonix Susp) 40 mg PO DAILY [facility] Last Admin: 05/11/17 09:51 Dose: 40 mg Potassium Phos/Sodium Phos (Neutra-Phos) 1 pkt PO BID [facility] Stop: 05/12/17 10:01 Last Admin: 05/11/17 17:28 Dose: 1 pkt Rosuvastatin Calcium (Crestor) 10 mg PO HS [facility] Last Admin: 05/10/17 21:00 Dose: 10 mg Thiamine HCl (Vitamin B1 Inj) 100 mg IV Q8H [facility] Last Admin: 05/11/17 15:07 Dose: 100 mg Timolol Maleate (Timoptic 0.5% Ophth Soln) 1 drop OU BID [facility] Last Admin: 05/11/17 17:29 Dose: 1 drop Vitamin B Complex/Vit C/Folic Acid (Nephro-Alonzo) 1 tab PO 0800 [facility] Last Admin: 05/11/17 07:59 Dose: 1 tab - Labs Labs: 05/11/17 06:20 05/11/17 06:16 PT 14.1 SECONDS (9.7-12.2) H 05/05/17 11:49 INR 1.2 05/05/17 11:49 APTT 30 SECONDS (21-34) 05/05/17 11:49 Assessment and Plan - Assessment and Plan (Free Text) Assessment: ESRD ON HD M W F ANEMIA OF CKD .. ON EPO MMP P : C/O SUPPORTIVE CARE C/O PRESENT MANAGEMENT
[2017-05-11] MEDS: Latanoprost 2.5 ml Opht Soln OU SCH (21:36)
[2017-05-11] MEDS: Imipenem/Cilastatin 500 MG in Dextrose 5% In Water 100 ML IVPB SCH (22:12)
[2017-05-12] MEDS: (Novolin R) Insulin Human Regular 100 units/ml vial SC SCH ×4 (00:06→18:11)
[2017-05-12] MEDS: Thiamine 100 mg/ml Inj IV SCH ×3 (06:45→21:38)
[2017-05-12 06:47] LABS: BASO # 0.1 K/uL (0.0-0.2); BASO % 0.7 % (0.0-2.0); EOS # 0.3 K/uL (0.0-0.7); EOS % 1.5 % (0.0-4.0); HEMATOCRIT 28.6 % (34.0-47.0); LYMPH # 3.5 K/uL (1.0-4.3); LYMPH % 18.3 % (20.0-40.0); MEAN CELL VOLUME 92.9 fL (81.0-99.0); MEAN CORPUSCULAR HEMOGLOBIN 31.2 pg (27.0-31.0); MEAN CORPUSCULAR HGB CONC 33.6 g/dL (33.0-37.0); MEAN PLATELET VOLUME 11.3 fL (7.2-11.7); MONO # 2.3 K/uL (0.0-0.8); NRBC % 0.2 % (0.0-2.0); RED CELL DISTRIBUTION WIDTH 17.6 % (11.5-14.5); WHITE BLOOD COUNT 19.4 K/uL (4.8-10.8)
[2017-05-12 07:14] LABS: ALB/GLOB RATIO 1.1 (1.0-2.1); BILIRUBIN,TOTAL 0.4 mg/dL (0.2-1.3); CALCIUM 7.1 mg/dl (8.6-10.4); PHOSPHOROUS 1.3 mg/dL (2.5-4.5); POTASSIUM 4.4 mmol/L (3.6-5.2); TOTAL PROTEIN 3.8 g/dL (6.3-8.3)
--- NOTE | 2017-05-12 07:34 | CP.CCUPN ---
<Poonam Morel - Last Filed: 05/12/17 10:43> CCU Subjective - Physician Review Subjective (Free Text): 05/12/17 08:49 Patient seen and examined at bedside. Patient resting comfortably in bed. No acute events over night. Patient moaning occasionally. ROS unattainable. CCU Objective - Vital Signs / Intake & Output Vital Signs (Last 4 hours): Vital Signs Temp Pulse Resp BP Pulse Ox 05/12/17 06:56 103 H 35 H 126/90 100 05/12/17 06:00 107 H 30 H 99 05/12/17 05:57 129/40 L 05/12/17 05:00 112 H 33 H 100 05/12/17 04:57 121/31 L 05/12/17 04:00 99.8 F H 110 H 36 H 100 05/12/17 03:57 111/34 L Intake and Output (Last 8hrs): Intake & Output 05/11/17 05/12/17 05/12/17 22:59 06:59 14:59 Intake Total 390 240 30 Balance 390 240 30 Weight 119 lb 9 oz Intake: Intake, IV Amount 100 PICC 100 Tube Feeding 240 240 30 Other 50 Other: # Bowel Movements 1 1 - Physical Exam Head: Positive for: Atraumatic Pupils: Positive for: PERRL Extroacular Muscles: Positive for: EOMI Mouth: Positive for: Moist Mucous Membranes Respiratory/Chest: Positive for: Clear to Auscultation, Good Air Exchange. Negative for: Respiratory Distress, Accessory Muscle Use, Wheezes, Rales, Rhonchi Cardiovascular: Positive for: Regular Rate and Rhythm Abdomen: Positive for: Feeding Tubes. Negative for: Tenderness, Distention Upper Extremity: Positive for: Edema Lower Extremity: Positive for: Other (s/p left AKA, wound of surgical site with erythema and tenderness) Neurological: Positive for: Other (GCS:9) Skin: Positive for: Warm, Dry Psychiatric: Positive for: Alert - Medications Active Medications: Active Medications Generic Name Dose Route Start Last Admin Trade Name Freq PRN Reason Stop Dose Admin Apixaban 5 mg 04/30/17 10:00 05/11/17 17:28 Eliquis PO 5 mg BID ELINA Administration Brimonidine Tartrate 1 ml 04/12/17 10:00 05/11/17 17:25 Alphagan 0.2% Opht OU 1 drop TID ELINA Administration Epoetin Maxwell 10,000 unit 04/27/17 12:00 05/11/17 12:39 Procrit IV 10,000 unit MWF ELINA Administration Ergocalciferol 1 cap 04/11/17 22:30 05/09/17 21:48 Drisdol 50,000 Intl Units Cap PO 1 cap Q7D ELINA Administration Glucagon 1 mg 04/19/17 08:20 05/02/17 22:26 Glucagen Diagnostic Kit IM 1 mg STAT PRN Administration Hypoglycemia Protocol Protocol Hydromorphone HCl 0.5 mg 05/11/17 08:30 05/11/17 17:39 Dilaudid IVP 0.5 mg Q6H PRN Administration Pain, severe (8-10) Fluconazole 100 mls @ 100 mls/hr 05/11/17 08:15 05/11/17 08:12 Diflucan Iv 200 Mg/100 Ml Ns IVPB 100 mls/hr Q24H ELINA Administration Imipenem/Cilastatin Sodium 500 100 mls @ 100 mls/hr 05/11/17 22:30 05/11/17 22:12 mg/ Dextrose IVPB 100 mls/hr Q12H ELINA Administration Insulin Glargine 10 unit 05/02/17 22:00 Lantus SC HS [facility] Insulin Human Regular 0 unit 05/09/17 00:00 05/12/17 06:19 Novolin R SC Not Given Q6 [facility] Protocol Latanoprost 0.02 ml 04/12/17 22:00 05/11/17 21:36 Xalatan Opht OU 0.02 ml HS [facility] Administration Midodrine 10 mg 04/27/17 11:04 05/09/17 11:02 Proamatine PO 10 mg ONCE PRN Administration Diastolic blood pressure Nystatin 1 gm 05/11/17 15:51 05/11/17 23:01 Nystop Topical Powder TOP 1 applic Q8H ELINA Administration Pantoprazole Sodium 40 mg 04/18/17 10:00 05/11/17 09:51 Protonix Susp PO 40 mg DAILY ELINA Administration Potassium Phos/Sodium Phos 1 pkt 05/09/17 10:00 05/11/17 17:28 Neutra-Phos PO 05/12/17 10:01 1 pkt BID ELINA Administration Rosuvastatin Calcium 10 mg 04/12/17 22:00 05/11/17 21:32 Crestor PO 10 mg HS ELINA Administration Thiamine HCl 100 mg 04/11/17 22:30 05/12/17 06:45 Vitamin B1 Inj IV 100 mg Q8H ELINA Administration Timolol Maleate 1 drop 04/12/17 10:00 05/11/17 17:29 Timoptic 0.5% Ophth Soln OU 1 drop BID ELINA Administration Vitamin B Complex/Vit C/Folic Acid 1 tab 04/12/17 08:00 05/11/17 07:59 Nephro-Alonzo PO 1 tab 0800 ELINA Administration - Patient Studies Lab Studies: Microbiology Studies 05/10/17 12:41 Gram Stain - Final Other: Please Indicate 05/09/17 Unknown Gram Stain - Final Skin - Knee-Left Wound Culture - Preliminary Yeast Species 05/08/17 09:40 Blood Culture - Preliminary Blood-Venous NO GROWTH AFTER 3 DAYS 05/08/17 09:50 Blood Culture - Preliminary Blood-Venous NO GROWTH AFTER 3 DAYS Lab Studies 05/12/17 05/12/17 05/12/17 Range/Units 06:36 06:36 05:12 WBC 19.4 H D (4.8-10.8) K/uL RBC 3.08 L (3.80-5.20) Mil/uL Hgb 9.6 L (11.0-16.0) g/dL Hct 28.6 L (34.0-47.0) % MCV 92.9 (81.0-99.0) fL MCH 31.2 H (27.0-31.0) pg MCHC 33.6 (33.0-37.0) g/dL RDW 17.6 H (11.5-14.5) % Plt Count 156 (130-400) K/uL MPV 11.3 (7.2-11.7) fL Neut % (Auto) 67.5 (50.0-75.0) % Lymph % (Auto) 18.3 L (20.0-40.0) % [place] % (Auto) 12.0 H (0.0-10.0) % Eos % (Auto) 1.5 (0.0-4.0) % Baso % (Auto) 0.7 (0.0-2.0) % Neut # 13.1 H (1.8-7.0) K/uL Lymph # 3.5 (1.0-4.3) K/uL [place] # 2.3 H (0.0-0.8) K/uL Eos # 0.3 (0.0-0.7) K/uL Baso # 0.1 (0.0-0.2) K/uL Sodium 131 L (132-148) mmol/L Potassium 4.4 (3.6-5.2) mmol/L Chloride 99 (98-107) mmol/L Carbon Dioxide 25 (22-30) mmol/L Anion Gap 12 (10-20) BUN 46 H (7-17) mg/dL Creatinine 1.8 H (0.7-1.2) mg/dL Est GFR ( Amer) 34 Est GFR (Non-Af Amer) 28 POC Glucose (mg/dL) 136 H (65-110) mg/dL Random Glucose 119 H (65-105) mg/dL Lactic Acid (0.7-2.1) mmol/L Calcium 7.1 L (8.6-10.4) mg/dl Phosphorus 1.3 L (2.5-4.5) mg/dL Magnesium 2.0 (1.6-2.3) mg/dL Total Bilirubin 0.4 (0.2-1.3) mg/dL AST 93 H D (14-36) U/L ALT 51 (9-52) U/L Alkaline Phosphatase 338 H (38-126) U/L Total Protein 3.8 L (6.3-8.3) g/dL Albumin 2.0 L (3.5-5.0) g/dL Globulin 1.8 L (2.2-3.9) gm/dL Albumin/Globulin Ratio 1.1 (1.0-2.1) 05/12/17 05/11/17 05/11/17 Range/Units 00:02 17:38 16:56 WBC (4.8-10.8) K/uL RBC (3.80-5.20) Mil/uL Hgb (11.0-16.0) g/dL Hct (34.0-47.0) % MCV (81.0-99.0) fL MCH (27.0-31.0) pg MCHC (33.0-37.0) g/dL RDW (11.5-14.5) % Plt Count (130-400) K/uL MPV (7.2-11.7) fL Neut % (Auto) (50.0-75.0) % Lymph % (Auto) (20.0-40.0) % [place] % (Auto) (0.0-10.0) % Eos % (Auto) (0.0-4.0) % Baso % (Auto) (0.0-2.0) % Neut # (1.8-7.0) K/uL Lymph # (1.0-4.3) K/uL [place] # (0.0-0.8) K/uL Eos # (0.0-0.7) K/uL Baso # (0.0-0.2) K/uL Sodium (132-148) mmol/L Potassium (3.6-5.2) mmol/L Chloride (98-107) mmol/L Carbon Dioxide (22-30) mmol/L Anion Gap (10-20) BUN (7-17) mg/dL Creatinine (0.7-1.2) mg/dL Est GFR ( Amer) Est GFR (Non-Af Amer) POC Glucose (mg/dL) 217 H 249 H (65-110) mg/dL Random Glucose (65-105) mg/dL Lactic Acid 5.3 H* (0.7-2.1) mmol/L Calcium (8.6-10.4) mg/dl Phosphorus (2.5-4.5) mg/dL Magnesium (1.6-2.3) mg/dL Total Bilirubin (0.2-1.3) mg/dL AST (14-36) U/L ALT (9-52) U/L Alkaline Phosphatase (38-126) U/L Total Protein (6.3-8.3) g/dL Albumin (3.5-5.0) g/dL Globulin (2.2-3.9) gm/dL Albumin/Globulin Ratio (1.0-2.1) 05/11/17 05/11/17 05/11/17 Range/Units 12:07 12:05 11:25 WBC (4.8-10.8) K/uL RBC (3.80-5.20) Mil/uL Hgb (11.0-16.0) g/dL Hct (34.0-47.0) % MCV (81.0-99.0) fL MCH (27.0-31.0) pg MCHC (33.0-37.0) g/dL RDW (11.5-14.5) % Plt Count (130-400) K/uL MPV (7.2-11.7) fL Neut % (Auto) (50.0-75.0) % Lymph % (Auto) (20.0-40.0) % [place] % (Auto) (0.0-10.0) % Eos % (Auto) (0.0-4.0) % Baso % (Auto) (0.0-2.0) % Neut # (1.8-7.0) K/uL Lymph # (1.0-4.3) K/uL [place] # (0.0-0.8) K/uL Eos # (0.0-0.7) K/uL Baso # (0.0-0.2) K/uL Sodium (132-148) mmol/L Potassium (3.6-5.2) mmol/L Chloride (98-107) mmol/L Carbon Dioxide (22-30) mmol/L Anion Gap (10-20) BUN (7-17) mg/dL Creatinine (0.7-1.2) mg/dL Est GFR ( Amer) Est GFR (Non-Af Amer) POC Glucose (mg/dL) 422 H* 416 H* (65-110) mg/dL Random Glucose (65-105) mg/dL Lactic Acid 1.2 (0.7-2.1) mmol/L Calcium (8.6-10.4) mg/dl Phosphorus (2.5-4.5) mg/dL Magnesium (1.6-2.3) mg/dL Total Bilirubin (0.2-1.3) mg/dL AST (14-36) U/L ALT (9-52) U/L Alkaline Phosphatase (38-126) U/L Total Protein (6.3-8.3) g/dL Albumin (3.5-5.0) g/dL Globulin (2.2-3.9) gm/dL Albumin/Globulin Ratio (1.0-2.1) Laboratory Results - last 24 hr 05/11/17 05/11/17 05/11/17 11:25 12:05 12:07 WBC RBC Hgb Hct MCV MCH MCHC RDW Plt Count MPV Neut % (Auto) Lymph % (Auto) [place] % (Auto) Eos % (Auto) Baso % (Auto) Neut # Lymph # [place] # Eos # Baso # Sodium Potassium Chloride Carbon Dioxide Anion Gap BUN Creatinine Est GFR ( Amer) Est GFR (Non-Af Amer) POC Glucose (mg/dL) 416 H* 422 H* Random Glucose Lactic Acid 1.2 Calcium Phosphorus Magnesium Total Bilirubin AST ALT Alkaline Phosphatase Total Protein Albumin Globulin Albumin/Globulin Ratio 05/11/17 05/11/17 05/12/17 16:56 17:38 00:02 WBC RBC Hgb Hct MCV MCH MCHC RDW Plt Count MPV Neut % (Auto) Lymph % (Auto) [place] % (Auto) Eos % (Auto) Baso % (Auto) Neut # Lymph # [place] # Eos # Baso # Sodium Potassium Chloride Carbon Dioxide Anion Gap BUN Creatinine Est GFR ( Amer) Est GFR (Non-Af Amer) POC Glucose (mg/dL) 249 H 217 H Random Glucose Lactic Acid 5.3 H* Calcium Phosphorus Magnesium Total Bilirubin AST ALT Alkaline Phosphatase Total Protein Albumin Globulin Albumin/Globulin Ratio 05/12/17 05/12/17 05/12/17 05:12 06:36 06:36 WBC 19.4 H D RBC 3.08 L Hgb 9.6 L Hct 28.6 L MCV 92.9 MCH 31.2 H MCHC 33.6 RDW 17.6 H Plt Count 156 MPV 11.3 Neut % (Auto) 67.5 Lymph % (Auto) 18.3 L [place] % (Auto) 12.0 H Eos % (Auto) 1.5 Baso % (Auto) 0.7 Neut # 13.1 H Lymph # 3.5 [place] # 2.3 H Eos # 0.3 Baso # 0.1 Sodium 131 L Potassium 4.4 Chloride 99 Carbon Dioxide 25 Anion Gap 12 BUN 46 H Creatinine 1.8 H Est GFR ( Amer) 34 Est GFR (Non-Af Amer) 28 POC Glucose (mg/dL) 136 H Random Glucose 119 H Lactic Acid Calcium 7.1 L Phosphorus 1.3 L Magnesium 2.0 Total Bilirubin 0.4 AST 93 H D ALT 51 Alkaline Phosphatase 338 H Total Protein 3.8 L Albumin 2.0 L Globulin 1.8 L Albumin/Globulin Ratio 1.1 Fingerstick Blood Sugar Results: 137 Review of Systems - Review of Systems Systems not reviewed;Unavailable: Altered Mental Status Assessment/Plan - Assessment and Plan (Free Text) Plan: 71F with a history of dialysis, renal failure and congestive heart failure, diabetes, hypertension, peripheral vascular disease, history of left knee below- knee limitation who was brought to the ICU for sepsis. Neuro: Altered mental status, etiology unknown. Dilaudid 0.5 mg IVP Q6H HEENT: brimonidine 0.2% 1 ml OU TID latanoprost 0.02 ml OU timolol 1 drop OU BID Respiratory: Chest CT angio: Filling defects are noted at both upper lobes pulmonary arteries suggestive of pulmonary embolus. Large bilateral pleural effusion. Mild cardiomegaly. [id number] pericardial effusion. [id number] anasarca. Lower lobe atelectasis due to pleural effusion. CXR (05/08/17): worsening left pleural effusion Hem: H&H: 9.6/28.6 Plt 156 Eliquis 5mg PO daily Procrit Nephro: I - 1220 O - [address] Ambrose consulted, help appreciated Pt undergoes hemodialysis Tues/Thurs/Sat Ergocalcierol 1 capsule PO Q7D Procrit Fluid, Electrolytes, Diet Neutrophos BID Tube feeds Thiamine Vitamin B complex Endo: DM ISS Lantus 10units SC HS on hold Hypoglycemic protocol Cardio: hx of diastolic CHF MAP >65, EF61% Midodrine 10 mg PRN Crestor 10mg PO HS ID: Sepsis WBC 19.4 Lactate 5.3 on 05/11 f/u repeat lactate and procal Tmax overnight: 100.3 wound culture showing yeast species f/u tissue culture Infectious Disease, Dr. Wellington consulted, help appreciated abx per ID Fluconazole 200mg IVPB q24h Nystatin 1g TOP Q8 Primaxin 500 mg Q12 wound vac for left AKA wound - possible source of infection GI AST 93 ALT 51 Prophylactic Care: GI: Protonix 40mg PO daily <Stalin John S - Last Filed: 05/12/17 16:01> CCU Objective - Vital Signs / Intake & Output Vital Signs (Last 4 hours): Vital Signs Temp 05/12/17 15:19 102 F H Intake and Output (Last 8hrs): Intake & Output 05/12/17 05/12/17 05/12/17 06:59 14:59 22:59 Intake Total 240 30 Balance 240 30 Weight 119 lb 9 oz Intake: Tube Feeding 240 30 Other: # Bowel Movements 1 - Medications Active Medications: Active Medications Generic Name Dose Route Start Last Admin Trade Name Freq PRN Reason Stop Dose Admin Apixaban 5 mg 05/12/17 10:00 05/12/17 10:09 Eliquis PO 5 mg BID ELINA Administration Brimonidine Tartrate 1 ml 04/12/17 10:00 05/12/17 14:00 Alphagan 0.2% Opht OU 1 drop TID ELINA Administration Collagenase 0 gm 05/12/17 11:15 05/12/17 11:15 Santyl TOP 1 applic DAILY ELINA Administration Epoetin Maxwell 10,000 unit 04/27/17 12:00 05/11/17 12:39 Procrit IV 10,000 unit MWF ELINA Administration Ergocalciferol 1 cap 04/11/17 22:30 05/09/17 21:48 Drisdol 50,000 Intl Units Cap PO 1 cap Q7D ELINA Administration Glucagon 1 mg 04/19/17 08:20 05/02/17 22:26 Glucagen Diagnostic Kit IM 1 mg STAT PRN Administration Hypoglycemia Protocol Protocol Hydromorphone HCl 0.5 mg 05/11/17 08:30 05/12/17 09:50 Dilaudid IVP 0.5 mg Q6H PRN Administration Pain, severe (8-10) Fluconazole 100 mls @ 100 mls/hr 05/11/17 08:15 05/12/17 08:15 Diflucan Iv 200 Mg/100 Ml Ns IVPB 100 mls/hr Q24H ELINA Administration Cefepime HCl 1 gm in 50 mls @ 100 mls/hr 05/12/17 10:45 05/12/17 12:00 Maxipime Iv 1 Gm Premix IVPB 100 mls/hr Q24H ELINA Administration Linezolid 600 mg in 300 mls @ 200 mls/hr 12/19/17 22:00 Zyvox 600mg/300ml D5w IVPB Q12 ELINA Insulin Glargine 10 unit 05/02/17 22:00 Lantus SC HS ELINA Insulin Human Regular 0 unit 05/09/17 00:00 05/12/17 12:22 Novolin R SC 10 unit Q6 ELINA Administration Protocol Latanoprost 0.02 ml 04/12/17 22:00 05/11/17 21:36 Xalatan Opht OU 0.02 ml HS ELINA Administration Midodrine 10 mg 04/27/17 11:04 05/09/17 11:02 Proamatine PO 10 mg ONCE PRN Administration Diastolic blood pressure Nystatin 1 gm 05/11/17 15:51 05/12/17 15:21 Nystop Topical Powder TOP 1 applic Q8H ELINA Administration Pantoprazole Sodium 40 mg 04/18/17 10:00 05/12/17 10:01 Protonix Susp PO 40 mg DAILY ELINA Administration Rosuvastatin Calcium 10 mg 04/12/17 22:00 05/11/17 21:32 Crestor PO 10 mg HS ELINA Administration Thiamine HCl 100 mg 04/11/17 22:30 05/12/17 15:27 Vitamin B1 Inj IV 100 mg Q8H ELINA Administration Timolol Maleate 1 drop 04/12/17 10:00 05/12/17 10:02 Timoptic 0.5% Ophth Soln OU 1 drop BID ELINA Administration Vitamin B Complex/Vit C/Folic Acid 1 tab 04/12/17 08:00 05/12/17 08:35 Nephro-Alonzo PO 1 tab 0800 ELINA Administration - Patient Studies Lab Studies: Microbiology Studies 05/11/17 10:56 Blood Culture - Preliminary Blood-During Dialysis NO GROWTH AFTER 24 HOURS 05/08/17 09:40 Blood Culture - Preliminary Blood-Venous NO GROWTH AFTER 4 DAYS 05/08/17 09:50 Blood Culture - Preliminary Blood-Venous NO GROWTH AFTER 4 DAYS 05/09/17 Unknown Gram Stain - Final Skin - Knee-Left Wound Culture - Final Mervat Albicans 05/10/17 12:41 Gram Stain - Final Other: Please Indicate Lab Studies 05/12/17 05/12/17 05/12/17 Range/Units 13:58 12:12 06:36 WBC (4.8-10.8) K/uL RBC (3.80-5.20) Mil/uL Hgb (11.0-16.0) g/dL Hct (34.0-47.0) % MCV (81.0-99.0) fL MCH (27.0-31.0) pg MCHC (33.0-37.0) g/dL RDW (11.5-14.5) % Plt Count (130-400) K/uL MPV (7.2-11.7) fL Neut % (Auto) (50.0-75.0) % Lymph % (Auto) (20.0-40.0) % [place] % (Auto) (0.0-10.0) % Eos % (Auto) (0.0-4.0) % Baso % (Auto) (0.0-2.0) % Neut # (1.8-7.0) K/uL Lymph # (1.0-4.3) K/uL [place] # (0.0-0.8) K/uL Eos # (0.0-0.7) K/uL Baso # (0.0-0.2) K/uL Sodium 131 L (132-148) mmol/L Potassium 4.4 (3.6-5.2) mmol/L Chloride 99 (98-107) mmol/L Carbon Dioxide 25 (22-30) mmol/L Anion Gap 12 (10-20) BUN 46 H (7-17) mg/dL Creatinine 1.8 H (0.7-1.2) mg/dL Est GFR ( Amer) 34 Est GFR (Non-Af Amer) 28 POC Glucose (mg/dL) 414 H* (65-110) mg/dL Random Glucose 119 H (65-105) mg/dL Lactic Acid 2.1 (0.7-2.1) mmol/L Calcium 7.1 L (8.6-10.4) mg/dl Phosphorus 1.3 L (2.5-4.5) mg/dL Magnesium 2.0 (1.6-2.3) mg/dL Total Bilirubin 0.4 (0.2-1.3) mg/dL AST 93 H D (14-36) U/L ALT 51 (9-52) U/L Alkaline Phosphatase 338 H (38-126) U/L Total Protein 3.8 L (6.3-8.3) g/dL Albumin 2.0 L (3.5-5.0) g/dL Globulin 1.8 L (2.2-3.9) gm/dL Albumin/Globulin Ratio 1.1 (1.0-2.1) 05/12/17 05/12/17 05/12/17 Range/Units 06:36 05:12 00:02 WBC 19.4 H D (4.8-10.8) K/uL RBC 3.08 L (3.80-5.20) Mil/uL Hgb 9.6 L (11.0-16.0) g/dL Hct 28.6 L (34.0-47.0) % MCV 92.9 (81.0-99.0) fL MCH 31.2 H (27.0-31.0) pg MCHC 33.6 (33.0-37.0) g/dL RDW 17.6 H (11.5-14.5) % Plt Count 156 (130-400) K/uL MPV 11.3 (7.2-11.7) fL Neut % (Auto) 67.5 (50.0-75.0) % Lymph % (Auto) 18.3 L (20.0-40.0) % [place] % (Auto) 12.0 H (0.0-10.0) % Eos % (Auto) 1.5 (0.0-4.0) % Baso % (Auto) 0.7 (0.0-2.0) % Neut # 13.1 H (1.8-7.0) K/uL Lymph # 3.5 (1.0-4.3) K/uL [place] # 2.3 H (0.0-0.8) K/uL Eos # 0.3 (0.0-0.7) K/uL Baso # 0.1 (0.0-0.2) K/uL Sodium (132-148) mmol/L Potassium (3.6-5.2) mmol/L Chloride (98-107) mmol/L Carbon Dioxide (22-30) mmol/L Anion Gap (10-20) BUN (7-17) mg/dL Creatinine (0.7-1.2) mg/dL Est GFR ( Amer) Est GFR (Non-Af Amer) POC Glucose (mg/dL) 136 H 217 H (65-110) mg/dL Random Glucose (65-105) mg/dL Lactic Acid (0.7-2.1) mmol/L Calcium (8.6-10.4) mg/dl Phosphorus (2.5-4.5) mg/dL Magnesium (1.6-2.3) mg/dL Total Bilirubin (0.2-1.3) mg/dL AST (14-36) U/L ALT (9-52) U/L Alkaline Phosphatase (38-126) U/L Total Protein (6.3-8.3) g/dL Albumin (3.5-5.0) g/dL Globulin (2.2-3.9) gm/dL Albumin/Globulin Ratio (1.0-2.1) 05/11/17 05/11/17 Range/Units 17:38 16:56 WBC (4.8-10.8) K/uL RBC (3.80-5.20) Mil/uL Hgb (11.0-16.0) g/dL Hct (34.0-47.0) % MCV (81.0-99.0) fL MCH (27.0-31.0) pg MCHC (33.0-37.0) g/dL RDW (11.5-14.5) % Plt Count (130-400) K/uL MPV (7.2-11.7) fL Neut % (Auto) (50.0-75.0) % Lymph % (Auto) (20.0-40.0) % [place] % (Auto) (0.0-10.0) % Eos % (Auto) (0.0-4.0) % Baso % (Auto) (0.0-2.0) % Neut # (1.8-7.0) K/uL Lymph # (1.0-4.3) K/uL [place] # (0.0-0.8) K/uL Eos # (0.0-0.7) K/uL Baso # (0.0-0.2) K/uL Sodium (132-148) mmol/L Potassium (3.6-5.2) mmol/L Chloride (98-107) mmol/L Carbon Dioxide (22-30) mmol/L Anion Gap (10-20) BUN (7-17) mg/dL Creatinine (0.7-1.2) mg/dL Est GFR ( Amer) Est GFR (Non-Af Amer) POC Glucose (mg/dL) 249 H (65-110) mg/dL Random Glucose (65-105) mg/dL Lactic Acid 5.3 H* (0.7-2.1) mmol/L Calcium (8.6-10.4) mg/dl Phosphorus (2.5-4.5) mg/dL Magnesium (1.6-2.3) mg/dL Total Bilirubin (0.2-1.3) mg/dL AST (14-36) U/L ALT (9-52) U/L Alkaline Phosphatase (38-126) U/L Total Protein (6.3-8.3) g/dL Albumin (3.5-5.0) g/dL Globulin (2.2-3.9) gm/dL Albumin/Globulin Ratio (1.0-2.1) Laboratory Results - last 24 hr 05/11/17 05/11/17 05/12/17 16:56 17:38 00:02 WBC RBC Hgb Hct MCV MCH MCHC RDW Plt Count MPV Neut % (Auto) Lymph % (Auto) [place] % (Auto) Eos % (Auto) Baso % (Auto) Neut # Lymph # [place] # Eos # Baso # Sodium Potassium Chloride Carbon Dioxide Anion Gap BUN Creatinine Est GFR ( Amer) Est GFR (Non-Af Amer) POC Glucose (mg/dL) 249 H 217 H Random Glucose Lactic Acid 5.3 H* Calcium Phosphorus Magnesium Total Bilirubin AST ALT Alkaline Phosphatase Total Protein Albumin Globulin Albumin/Globulin Ratio 05/12/17 05/12/17 05/12/17 05:12 06:36 06:36 WBC 19.4 H D RBC 3.08 L Hgb 9.6 L Hct 28.6 L MCV 92.9 MCH 31.2 H MCHC 33.6 RDW 17.6 H Plt Count 156 MPV 11.3 Neut % (Auto) 67.5 Lymph % (Auto) 18.3 L [place] % (Auto) 12.0 H Eos % (Auto) 1.5 Baso % (Auto) 0.7 Neut # 13.1 H Lymph # 3.5 [place] # 2.3 H Eos # 0.3 Baso # 0.1 Sodium 131 L Potassium 4.4 Chloride 99 Carbon Dioxide 25 Anion Gap 12 BUN 46 H Creatinine 1.8 H Est GFR ( Amer) 34 Est GFR (Non-Af Amer) 28 POC Glucose (mg/dL) 136 H Random Glucose 119 H Lactic Acid Calcium 7.1 L Phosphorus 1.3 L Magnesium 2.0 Total Bilirubin 0.4 AST 93 H D ALT 51 Alkaline Phosphatase 338 H Total Protein 3.8 L Albumin 2.0 L Globulin 1.8 L Albumin/Globulin Ratio 1.1 05/12/17 05/12/17 12:12 13:58 WBC RBC Hgb Hct MCV MCH MCHC RDW Plt Count MPV Neut % (Auto) Lymph % (Auto) [place] % (Auto) Eos % (Auto) Baso % (Auto) Neut # Lymph # [place] # Eos # Baso # Sodium Potassium Chloride Carbon Dioxide Anion Gap BUN Creatinine Est GFR ( Amer) Est GFR (Non-Af Amer) POC Glucose (mg/dL) 414 H* Random Glucose Lactic Acid 2.1 Calcium Phosphorus Magnesium Total Bilirubin AST ALT Alkaline Phosphatase Total Protein Albumin Globulin Albumin/Globulin Ratio Assessment/Plan (1) Pleural effusion Current Visit: No Status: Acute Attending/Attestation - Attestation I have personally seen and examined this patient.: Yes I have fully participated in the care of the patient.: Yes I have reviewed all pertinent clinical information: Yes Notes (Text): 05/12/17 16:00 patient seen and examined in the intensive care unit. case discussed with the house staff in the morning rounds 71F with a history of dialysis, renal failure and congestive heart failure, diabetes, hypertension, peripheral vascular disease, history of left knee below- knee Amputation who was brought to the ICU for sepsis. continue IV antibiotics Follow-up culture and sensitivity Continue eliquis for pulmonary embolism On hemodialysis
[2017-05-12] MEDS: Nystatin 100,000 Units/gm Topical Pow(15 gm) TOP SCH ×2 (08:00→15:21)
[2017-05-12] MEDS: Fluconazole IV 200mg/100 ml NS 100 ML IVPB SCH (08:15)
[2017-05-12] MEDS: Multivitamin Vitamin B Complex (Nephro-Vite) Tab PO SCH (08:35)
[2017-05-12] MEDS: HYDROmorphone 1 mg/ml ISec IVP PRN ×2 (09:50→21:42)
[2017-05-12] MEDS: Potassium & Sodium Phosphate PO SCH (09:53)
[2017-05-12] MEDS: Pantoprazole 40 mg Susp UD PO SCH (10:01)
[2017-05-12] MEDS: Brimonidine 0.2% Opth Sol (5ml) OU SCH ×3 (10:02→18:07)
[2017-05-12] MEDS: Imipenem/Cilastatin 500 MG in Dextrose 5% In Water 100 ML IVPB SCH (10:06)
--- NOTE | 2017-05-12 10:34 | CP.PCM.PN ---
Subjective - Date & Time of Evaluation Date of Evaluation: 05/12/17 Time of Evaluation: 09:00 - Subjective Subjective: events noted + PE weak bedridden lethargic Objective - Vital Signs/Intake and Output Vital Signs (last 24 hours): Temp Pulse Resp BP Pulse Ox 99.8 F H 103 H 35 H 126/90 100 05/12/17 04:00 05/12/17 06:56 05/12/17 06:56 05/12/17 06:56 05/12/17 06:56 Intake and Output: 05/12/17 05/12/17 06:59 18:59 Intake Total 510 30 Balance 510 30 - Medications Medications: Current Medications Apixaban (Eliquis) 5 mg PO BID [facility] Last Admin: 05/12/17 10:09 Dose: 5 mg Brimonidine Tartrate (Alphagan 0.2% Opht) 1 ml OU TID [facility] Last Admin: 05/12/17 10:02 Dose: 1 drop Epoetin Maxwell (Procrit) 10,000 unit IV MWF [facility] Last Admin: 05/11/17 12:39 Dose: 10,000 unit Ergocalciferol (Drisdol 50,000 Intl Units Cap) 1 cap PO Q7D [facility] Last Admin: 05/09/17 21:48 Dose: 1 cap Glucagon (Glucagen Diagnostic Kit) 1 mg IM STAT PRN; Protocol PRN Reason: Hypoglycemia Protocol Last Admin: 05/02/17 22:26 Dose: 1 mg Hydromorphone HCl (Dilaudid) 0.5 mg IVP Q6H PRN PRN Reason: Pain, severe (8-10) Last Admin: 05/12/17 09:50 Dose: 0.5 mg Fluconazole (Diflucan Iv 200 Mg/100 Ml Ns) 100 mls @ 100 mls/hr IVPB Q24H [facility] Last Admin: 05/12/17 08:15 Dose: 100 mls/hr Imipenem/Cilastatin Sodium 500 (mg/ Dextrose) 100 mls @ 100 mls/hr IVPB Q12H [facility] Last Admin: 05/12/17 10:06 Dose: 100 mls/hr Insulin Glargine (Lantus) 10 unit SC HS [facility] Insulin Human Regular (Novolin R) 0 unit SC Q6 [facility] PRN Reason: Protocol Last Admin: 05/12/17 06:19 Dose: Not Given Latanoprost (Xalatan Opht) 0.02 ml OU HS [facility] Last Admin: 05/11/17 21:36 Dose: 0.02 ml Midodrine (Proamatine) 10 mg PO ONCE PRN PRN Reason: Diastolic blood pressure Last Admin: 05/09/17 11:02 Dose: 10 mg Nystatin (Nystop Topical Powder) 1 gm TOP Q8H [facility] Last Admin: 05/12/17 08:00 Dose: 1 applic Pantoprazole Sodium (Protonix Susp) 40 mg PO DAILY [facility] Last Admin: 05/12/17 10:01 Dose: 40 mg Rosuvastatin Calcium (Crestor) 10 mg PO HS [facility] Last Admin: 05/11/17 21:32 Dose: 10 mg Thiamine HCl (Vitamin B1 Inj) 100 mg IV Q8H [facility] Last Admin: 05/12/17 06:45 Dose: 100 mg Timolol Maleate (Timoptic 0.5% Ophth Soln) 1 drop OU BID [facility] Last Admin: 05/12/17 10:02 Dose: 1 drop Vitamin B Complex/Vit C/Folic Acid (Nephro-Alonzo) 1 tab PO 0800 [facility] Last Admin: 05/12/17 08:35 Dose: 1 tab - Labs Labs: 05/12/17 06:36 05/12/17 06:36 PT 14.1 SECONDS (9.7-12.2) H 05/05/17 11:49 INR 1.2 05/05/17 11:49 APTT 30 SECONDS (21-34) 05/05/17 11:49 - Constitutional Appears: Non-toxic - Head Exam Head Exam: NORMOCEPHALIC - Eye Exam Eye Exam: PERRL - ENT Exam ENT Exam: Mucous Membranes Dry - Neck Exam Neck Exam: absent: Lymphadenopathy - Respiratory Exam Respiratory Exam: Decreased Breath Sounds, Rhonchi - Cardiovascular Exam Cardiovascular Exam: REGULAR RHYTHM - GI/Abdominal Exam GI & Abdominal Exam: Distended, Soft - Rectal Exam Rectal Exam: Deferred - Exam Exam: NORMAL INSPECTION - Extremities Exam Extremities Exam: absent: Pedal Edema Additional comments: s/p bka - Back Exam Back Exam: absent: CVA tenderness (L), CVA tenderness (R) - Neurological Exam Neurological Exam: Alert, Altered - Psychiatric Exam Psychiatric exam: Depressed - Skin Skin Exam: Dry Assessment and Plan (1) Elevated WBC count Status: Acute (2) S/P BKA (below knee amputation) Status: Acute (3) Sacral decubitus ulcer, stage III Status: Acute (4) Sepsis Status: Acute - Assessment and Plan (Free Text) Assessment: WOUND GROWING VALERIY DIFLUCAN ADDED Plan: CONT ZYVOX / CEFEPIME/ DIFLUCAN SURGICAL FOLLOW UP AND WOUND CARE
[2017-05-12] MEDS: Collagenase 250 Units/gm Ointment(30 gm) TOP SCH (11:15)
[2017-05-12] MEDS: Cefepime IV 1 gm in Dextrose 1 GM/50 ML BAG IVPB SCH (12:00)
--- NOTE | 2017-05-12 13:34 | PN ---
LOCATION: ICU, bed 5. SUBJECTIVE: This is a 71 years old female seen and examined in rounds without significant clinical changes or reported active bleeding, tolerating PEG feeding well without residual or resistance. Patient appears to be somewhat lethargic. The entire chart is reviewed including, but not limited to most recent lab and radiology study results, current and the previous medication list, current and the previous medical events as well as allergy to medication list. Case was discussed at length with the staff in the Intensive Care Unit. LABORATORY DATA: Today's labs showed white blood cell of 19.4 with hemoglobin 9.6, hematocrit 28.6 with normal platelet count with low sodium 131, increased BUN of 46, creatinine 1.8, blood glucose level 136 with low calcium 7.1, low phosphorus 1.3 with low albumin 2.0, low total protein 3.8. PHYSICAL EXAMINATION GENERAL: A 71 years old female. VITAL SIGNS: Low-grade temperature of 99.8 and pulse of 108 with blood pressure 112/48, respiratory rate of 32. HEENT: Showed pale, dry oral mucous membranes, nonicteric sclerae. LUNGS: She has got crepitation, decreased air entry at bases. HEART: Positive S1 and S2. ABDOMEN: Soft, bowel sounds are present with mild generalized tenderness. No mass or organomegaly. No rebound tenderness or guarding. PEG tube is in place. No evidence of anterior abdominal wall cellulitis. EXTREMITIES: Without edema, clubbing or cyanosis. NEUROLOGIC: No reported new neurological deficits, sensory or motor. 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 IMPRESSION: 1. Septicemia. 2. Malnutrition with hypoalbuminemia. 3. Failure to thrive. 4. Status post percutaneous endoscopic gastrostomy insertion. 5. Anemia most likely secondary to above. 6. Status post left [id number]-[id number] amputation with infected stump, on antibiotics. 7. End-stage renal disease, on hemodialysis. 8. Electrolyte imbalance secondary to above. SUGGESTIONS: 1. Continue current management. 2. Antireflux measure. 3. Albumin IV. Further recommendations to follow. Case discussed with the patient's again at length today. Karena Arias MD
[2017-05-12] MEDS ORDERED: Acetaminophen 650mg/20.3ml solution UD PO ONE (14:45)
--- NOTE | 2017-05-12 18:11 | CP.PCM.PN ---
Subjective - Date & Time of Evaluation Date of Evaluation: 05/12/17 Time of Evaluation: 16:00 - Subjective Subjective: SEEN ON RENAL F/U ALL EMR REVIEWED ON HD M W F PHOS IS LOW .. SUPPLEMENT PRESCRIBED Objective - Vital Signs/Intake and Output Vital Signs (last 24 hours): Temp Pulse Resp BP Pulse Ox 102 F H 103 H 35 H 126/90 100 05/12/17 15:19 05/12/17 06:56 05/12/17 06:56 05/12/17 06:56 05/12/17 06:56 Intake and Output: 05/12/17 05/12/17 06:59 18:59 Intake Total 510 30 Balance 510 30 - Medications Medications: Current Medications Albumin Human (Albumin Human 5% (12.5 Gm/250 Ml)) 12.5 gm IV MWF PRN PRN Reason: hypotension Stop: 05/25/17 09:01 Apixaban (Eliquis) 5 mg PO BID [facility] Last Admin: 05/12/17 18:05 Dose: 5 mg Brimonidine Tartrate (Alphagan 0.2% Opht) 1 ml OU TID [facility] Last Admin: 05/12/17 18:07 Dose: 1 drop Collagenase (Santyl) 0 gm TOP DAILY [facility] Last Admin: 05/12/17 11:15 Dose: 1 applic Epoetin Maxwell (Procrit) 10,000 unit IV MWF [facility] Last Admin: 05/11/17 12:39 Dose: 10,000 unit Ergocalciferol (Drisdol 50,000 Intl Units Cap) 1 cap PO Q7D [facility] Last Admin: 05/09/17 21:48 Dose: 1 cap Glucagon (Glucagen Diagnostic Kit) 1 mg IM STAT PRN; Protocol PRN Reason: Hypoglycemia Protocol Last Admin: 05/02/17 22:26 Dose: 1 mg Hydromorphone HCl (Dilaudid) 0.5 mg IVP Q6H PRN PRN Reason: Pain, severe (8-10) Last Admin: 05/12/17 09:50 Dose: 0.5 mg Fluconazole (Diflucan Iv 200 Mg/100 Ml Ns) 100 mls @ 100 mls/hr IVPB Q24H [facility] Last Admin: 05/12/17 08:15 Dose: 100 mls/hr Cefepime HCl (Maxipime Iv 1 Gm Premix) 1 gm in 50 mls @ 100 mls/hr IVPB Q24H [facility] Last Admin: 05/12/17 12:00 Dose: 100 mls/hr Linezolid (Zyvox 600mg/300ml D5w) 600 mg in 300 mls @ 200 mls/hr IVPB Q12 [facility] Insulin Glargine (Lantus) 10 unit SC HS [facility] Insulin Human Regular (Novolin R) 0 unit SC Q6 [facility] PRN Reason: Protocol Last Admin: 05/12/17 12:22 Dose: 10 unit Latanoprost (Xalatan Opht) 0.02 ml OU HS [facility] Last Admin: 05/11/17 21:36 Dose: 0.02 ml Midodrine (Proamatine) 10 mg PO ONCE PRN PRN Reason: Diastolic blood pressure Last Admin: 05/09/17 11:02 Dose: 10 mg Nystatin (Nystop Topical Powder) 1 gm TOP Q8H [facility] Last Admin: 05/12/17 15:21 Dose: 1 applic Pantoprazole Sodium (Protonix Susp) 40 mg PO DAILY [facility] Last Admin: 05/12/17 10:01 Dose: 40 mg Potassium Phos/Sodium Phos (Neutra-Phos) 1 pkt PO BIDPC [facility] Rosuvastatin Calcium (Crestor) 10 mg PO HS [facility] Last Admin: 05/11/17 21:32 Dose: 10 mg Thiamine HCl (Vitamin B1 Inj) 100 mg IV Q8H [facility] Last Admin: 05/12/17 15:27 Dose: 100 mg Timolol Maleate (Timoptic 0.5% Oph Soln) 1 drop OU BID [facility] Last Admin: 05/12/17 10:02 Dose: 1 drop Vitamin B Complex/Vit C/Folic Acid (Nephro-Alonzo) 1 tab PO 0800 [facility] Last Admin: 05/12/17 08:35 Dose: 1 tab - Labs Labs: 05/12/17 06:36 05/12/17 06:36 PT 14.1 SECONDS (9.7-12.2) H 05/05/17 11:49 INR 1.2 05/05/17 11:49 APTT 30 SECONDS (21-34) 05/05/17 11:49 Assessment and Plan - Assessment and Plan (Free Text) Assessment: ESRD ON HD M W F ANEMIA OF CKD .. ON EPO AND VENIFER MMP P : C/O SUPPORTIVE CARE C/O PRESENT MANAGEMENT SUPPLY PHOS
[2017-05-12] MEDS: Linezolid 600 mg in D5W 300 ml 600 MG/300 ML BAG IVPB SCH (21:40)
[2017-05-12] MEDS: Latanoprost 2.5 ml Opht Soln OU SCH (21:42)
[2017-05-13] MEDS: Nystatin 100,000 Units/gm Topical Pow(15 gm) TOP SCH ×4 (00:13→23:40)
[2017-05-13] MEDS: (Novolin R) Insulin Human Regular 100 units/ml vial SC SCH ×4 (00:30→18:42)
[2017-05-13] MEDS: Thiamine 100 mg/ml Inj IV SCH ×3 (06:12→21:30)
[2017-05-13 06:37] LABS: BASO # 0.1 K/uL (0.0-0.2); BASO % 0.5 % (0.0-2.0); EOS # 0.3 K/uL (0.0-0.7); EOS % 1.2 % (0.0-4.0); HEMATOCRIT 26.9 % (34.0-47.0); LYMPH # 3.7 K/uL (1.0-4.3); LYMPH % 14.2 % (20.0-40.0); MEAN CELL VOLUME 94.8 fL (81.0-99.0); MEAN CORPUSCULAR HEMOGLOBIN 30.7 pg (27.0-31.0); MEAN CORPUSCULAR HGB CONC 32.4 g/dL (33.0-37.0); MEAN PLATELET VOLUME 10.2 fL (7.2-11.7); MONO # 2.4 K/uL (0.0-0.8); MONO % 9.2 % (0.0-10.0); NRBC % 0.1 % (0.0-2.0); PLATELET COUNT 223 K/uL (130-400); RED CELL DISTRIBUTION WIDTH 18.1 % (11.5-14.5)
[2017-05-13 06:57] LABS: ALB/GLOB RATIO 1.1 (1.0-2.1); BILIRUBIN,TOTAL 0.5 mg/dL (0.2-1.3); CALCIUM 7.2 mg/dl (8.6-10.4); MAGNESIUM 2.1 mg/dL (1.6-2.3); PHOSPHOROUS 1.9 mg/dL (2.5-4.5); POTASSIUM 4.2 mmol/L (3.6-5.2); TOTAL PROTEIN 3.6 g/dL (6.3-8.3)
[2017-05-13] MEDS: Fluconazole IV 200mg/100 ml NS 100 ML IVPB SCH (07:47)
[2017-05-13] MEDS: Multivitamin Vitamin B Complex (Nephro-Vite) Tab PO SCH (07:47)
[2017-05-13] MEDS: Potassium & Sodium Phosphate PO SCH ×2 (09:13→18:48)
--- NOTE | 2017-05-13 09:22 | CP.PCM.PN ---
Subjective - Date & Time of Evaluation Date of Evaluation: 05/13/17 Time of Evaluation: 09:20 - Subjective Subjective: the 1 inch open wound with wound vac on the lateral border of the stump is not the cause or source of the patient's wbc, etc. Objective - Vital Signs/Intake and Output Vital Signs (last 24 hours): Temp Pulse Resp BP Pulse Ox 99.6 F 104 H 28 H 122/29 L 98 05/13/17 04:00 05/13/17 06:00 05/13/17 06:00 05/13/17 05:58 05/13/17 06:00 Intake and Output: 05/13/17 05/13/17 06:59 18:59 Intake Total 660 Output Total 25 Balance 635 - Medications Medications: Current Medications Albumin Human (Albumin Human 5% (12.5 Gm/250 Ml)) 12.5 gm IV MWF PRN PRN Reason: hypotension Stop: 05/25/17 09:01 Apixaban (Eliquis) 5 mg PO BID [facility] Brimonidine Tartrate (Alphagan 0.2% Opht) 1 ml OU TID [facility] Last Admin: 05/12/17 18:07 Dose: 1 drop Collagenase (Santyl) 0 gm TOP DAILY [facility] Last Admin: 05/12/17 11:15 Dose: 1 applic Epoetin Maxwell (Procrit) 10,000 unit IV MWF [facility] Last Admin: 05/11/17 12:39 Dose: 10,000 unit Ergocalciferol (Drisdol 50,000 Intl Units Cap) 1 cap PO Q7D [facility] Last Admin: 05/09/17 21:48 Dose: 1 cap Glucagon (Glucagen Diagnostic Kit) 1 mg IM STAT PRN; Protocol PRN Reason: Hypoglycemia Protocol Last Admin: 05/02/17 22:26 Dose: 1 mg Hydromorphone HCl (Dilaudid) 0.5 mg IVP Q6H PRN PRN Reason: Pain, severe (8-10) Fluconazole (Diflucan Iv 200 Mg/100 Ml Ns) 100 mls @ 100 mls/hr IVPB Q24H [facility] Last Admin: 05/13/17 07:47 Dose: 100 mls/hr Cefepime HCl (Maxipime Iv 1 Gm Premix) 1 gm in 50 mls @ 100 mls/hr IVPB Q24H [facility] Last Admin: 05/12/17 12:00 Dose: 100 mls/hr Linezolid (Zyvox 600mg/300ml D5w) 600 mg in 300 mls @ 200 mls/hr IVPB Q12 [facility] Last Admin: 05/12/17 21:40 Dose: 200 mls/hr Insulin Glargine (Lantus) 10 unit SC HS [facility] Insulin Human Regular (Novolin R) 0 unit SC Q6 [facility] PRN Reason: Protocol Last Admin: 05/13/17 06:09 Dose: 3 unit Latanoprost (Xalatan Opht) 0.02 ml OU HS [facility] Last Admin: 05/12/17 21:42 Dose: 0.02 ml Midodrine (Proamatine) 10 mg PO ONCE PRN PRN Reason: Diastolic blood pressure Last Admin: 05/09/17 11:02 Dose: 10 mg Nystatin (Nystop Topical Powder) 1 gm TOP Q8H [facility] Last Admin: 05/13/17 00:13 Dose: 1 applic Pantoprazole Sodium (Protonix Susp) 40 mg PO DAILY [facility] Last Admin: 05/12/17 10:01 Dose: 40 mg Potassium Phos/Sodium Phos (Neutra-Phos) 1 pkt PO BIDPC [facility] Last Admin: 05/13/17 09:13 Dose: 1 pkt Rosuvastatin Calcium (Crestor) 10 mg PO HS [facility] Last Admin: 05/12/17 21:39 Dose: 10 mg Thiamine HCl (Vitamin B1 Inj) 100 mg IV Q8H [facility] Last Admin: 05/13/17 06:12 Dose: 100 mg Timolol Maleate (Timoptic 0.5% [facility]) 1 drop OU BID [facility] Last Admin: 05/12/17 18:40 Dose: 1 drop Vitamin B Complex/Vit C/Folic Acid (Nephro-Alonzo) 1 tab PO 0800 [facility] Last Admin: 05/13/17 07:47 Dose: 1 tab - Labs Labs: 05/13/17 06:26 05/13/17 06:26 PT 14.1 SECONDS (9.7-12.2) H 05/05/17 11:49 INR 1.2 05/05/17 11:49 APTT 30 SECONDS (21-34) 05/05/17 11:49
[2017-05-13] MEDS: Cefepime IV 1 gm in Dextrose 1 GM/50 ML BAG IVPB SCH (09:45)
[2017-05-13] MEDS: Brimonidine 0.2% Opth Sol (5ml) OU SCH ×3 (09:52→18:51)
[2017-05-13] MEDS: Linezolid 600 mg in D5W 300 ml 600 MG/300 ML BAG IVPB SCH ×2 (10:00→21:00)
[2017-05-13] MEDS: Pantoprazole 40 mg Susp UD PO SCH (10:01)
[2017-05-13] MEDS: Collagenase 250 Units/gm Ointment(30 gm) TOP SCH (10:07)
[2017-05-13 10:45] LABS: EOSINOPHIL 1 % (0-4); METAMYELOCYTE 1 % (0-0); NEUTROPHIL 55 % (50-75); NUCLEATED RED BLOOD CELL 9 % (0-0); REACTIVE LYMPHOCYTES 1 % (0-0); TOTAL CELLS COUNTED 100
[2017-05-13] MEDS: Albumin Human 5% (12.5 gm/250 ml) IV PRN (12:01)
[2017-05-13] MEDS ORDERED: Norepinephrine 8 MG in Dextrose 5% In Water 242 ML IV PRN (12:20)
[2017-05-13] MEDS: Epoetin Alfa 10,000 unit/ml Dialysis IV SCH (13:31)
[2017-05-13 14:19] LABS: ABG ALLEN TEST POS; ABG MECHANICAL RATE 15; ARTERIAL BLOOD GAS MODE PRVC; DRAW SITE RR
--- NOTE | 2017-05-13 14:45 | PN ---
LOCATION: ICU 5. SUBJECTIVE: This 71 years old female, seen early in rounds today without significant clinical changes, discussed earlier with Dr. Broussard. The entire chart is reviewed including, but not limited to the most recent lab and radiology study results, current and the previous medication list, current and the previous medical events and the patient tolerating PEG feeding well. No reported active bleeding. Most recent lab results showed leukocytosis of 26 with hemoglobin dropped to 8.7, hematocrit 26.9 with normal platelet count with increased BUN to 55, increased creatinine 2.1, blood glucose level 378, with low calcium 7.2, low phosphorus 1.9 with low albumin 1.8, low total protein 3.6 with increased alkaline phosphatase and mildly increased AST. PHYSICAL EXAMINATION: GENERAL: A 71 years old female, appeared to be somewhat lethargic. VITAL SIGNS: With low-grade temperature of 100.1, heart rate 100 with blood pressure of 90/42 and respiratory rate 20 to 24. HEENT: Showed pale, dry oral mucous membrane. Nonicteric sclerae. LUNGS: Few scattered crepitation, decreased air entry at bases. HEART: Positive S1 and S2. ABDOMEN: Soft. PEG tube is in place without residual bleeding or resistance. EXTREMITIES: With lower extremities mild edematous changes and evidence of left below-knee amputation with clean stump, covered with clean dressing. NEUROLOGIC: No other reported neurological deficits, sensory or motor. IMPRESSION: 1. Failure to thrive. 2. Severe malnutrition with hypoalbuminemia. 3. Status post percutaneous endoscopic gastrostomy insertion. 4. Septicemia. 5. Anemia most likely secondary to chronic disease. 6. Known history of chronic renal failure, on hemodialysis. 7. Electrolyte imbalance, most likely secondary to above. SUGGESTION: 1. Continue current management. 2. Correct any underlying electrolyte imbalance. 3. Subsequent and gradual increase of rate of feeding as tolerates it. Karena Arias MD
[2017-05-13] MEDS ORDERED: Propofol 10 mg/ml 1,000 MG/100 ML VIAL IV PRN (15:41)
--- NOTE | 2017-05-13 15:56 | RAD ---
HISTORY: intubated COMPARISON: Chest radiograph dated 05/08/2017. FINDINGS: LUNGS: Pulmonary vascular congestion. Bibasilar atelectasis. PLEURA: Slight decrease in size of moderate left and small right pleural effusions. No pneumothorax apparent. CARDIOVASCULAR: Atherosclerotic aortic calcifications. Cardiomediastinal silhouette stably prominent. OSSEOUS STRUCTURES: No significant abnormalities. VISUALIZED UPPER ABDOMEN: Normal. OTHER FINDINGS: New endotracheal tube with tip between the clavicles and chinmay. Right upper extremity PICC, unchanged. IMPRESSION: Interval intubation with endotracheal tube in satisfactory position. Pulmonary vascular congestion with slight interval decrease in size of moderate left and small right pleural effusions. No other significant interval changes.
--- NOTE | 2017-05-13 17:53 | CP.CCUPN ---
<Poonam Morel - Last Filed: 05/13/17 17:44> CCU Subjective - Physician Review Subjective (Free Text): 05/13/17 11:00 Patient seen and examined at bedside. Patient ressting comfortably in bed during first examination however, vish devi was called at 13:07 today for unresponsiveness to sternal rub, agonal breathing, and low HR. Vish devi was called but patient was found to have a pulse. Patient was intubated and stabilized. CCU Objective - Vital Signs / Intake & Output Intake and Output (Last 8hrs): Intake & Output 05/13/17 05/13/17 05/13/17 06:59 14:59 22:59 Intake Total 240 8 Output Total 0 Balance 240 8 Weight 129 lb 8 oz Intake: IV 8 Tube Feeding 240 Output: Drainage 0 Left Knee 0 Other: # Bowel Movements 1 - Physical Exam Head: Positive for: Atraumatic Pupils: Positive for: PERRL Extroacular Muscles: Positive for: EOMI Mouth: Positive for: Moist Mucous Membranes Respiratory/Chest: Positive for: Clear to Auscultation, Good Air Exchange. Negative for: Respiratory Distress, Accessory Muscle Use, Wheezes, Rales, Rhonchi Cardiovascular: Positive for: Regular Rate and Rhythm Abdomen: Positive for: Feeding Tubes. Negative for: Tenderness, Distention Upper Extremity: Positive for: Edema Lower Extremity: Positive for: Other (s/p left AKA, wound of surgical site with erythema and tenderness) Neurological: Positive for: Other (GCS:9) Skin: Positive for: Warm, Dry Psychiatric: Positive for: Alert - Medications Active Medications: Active Medications Generic Name Dose Route Start Last Admin Trade Name Freq PRN Reason Stop Dose Admin Acetaminophen 650 mg 05/13/17 09:40 Tylenol 650mg/20.3ml Solution Ud PO Q6 PRN Fever >100.4 F Albumin Human 12.5 gm 05/13/17 12:00 05/13/17 12:01 Albumin Human 5% (12.5 Gm/250 Ml) IV 12.5 gm MWF PRN Administration hypotension Apixaban 5 mg 05/13/17 10:00 05/13/17 10:02 Eliquis PO 5 mg BID ELINA Administration Brimonidine Tartrate 1 ml 04/12/17 10:00 05/13/17 14:24 Alphagan 0.2% Opht OU 1 applic TID ELINA Administration Collagenase 0 gm 05/12/17 11:15 05/13/17 10:07 Santyl TOP Not Given DAILY [facility] Epoetin Maxwell 10,000 unit 04/27/17 12:00 05/13/17 13:31 Procrit IV 10,000 unit MWF ELINA Administration Ergocalciferol 1 cap 04/11/17 22:30 05/09/17 21:48 Drisdol 50,000 Intl Units Cap PO 1 cap Q7D ELINA Administration Glucagon 1 mg 04/19/17 08:20 05/02/17 22:26 Glucagen Diagnostic Kit IM 1 mg STAT PRN Administration Hypoglycemia Protocol Protocol Hydromorphone HCl 0.5 mg 05/13/17 08:45 Dilaudid IVP Q6H PRN Pain, severe (8-10) Fluconazole 100 mls @ 100 mls/hr 05/11/17 08:15 05/13/17 07:47 Diflucan Iv 200 Mg/100 Ml Ns IVPB 100 mls/hr Q24H ELINA Administration Cefepime HCl 1 gm in 50 mls @ 100 mls/hr 05/12/17 10:45 05/13/17 09:45 Maxipime Iv 1 Gm Premix IVPB 100 mls/hr Q24H ELINA Administration Linezolid 600 mg in 300 mls @ 200 mls/hr 05/12/17 22:00 05/13/17 10:00 Zyvox 600mg/300ml D5w IVPB 200 mls/hr Q12 ELINA Administration Norepinephrine Bitartrate 8 mg 250 mls @ 7.5 mls/hr 05/13/17 12:20 05/13/17 13:45 / Dextrose IV 3 mcg/min .Q24H PRN 5.62 mls/hr TITRATE PER MD ORDER Titration Protocol 4 MCG/MIN Propofol 1,000 mg in 100 mls @ 1.762 mls/hr 05/13/17 15:41 05/13/17 16:05 Diprivan IV 5 mcg/kg/min .Q24H PRN 1.762 mls/hr TITRATE PER MD ORDER Administration Protocol 5 MCG/KG/MIN Insulin Glargine 10 unit 05/02/17 22:00 Lantus SC HS [facility] Insulin Human Regular 0 unit 05/09/17 00:00 05/13/17 13:35 Novolin R SC 8 unit Q6 ELINA Administration Protocol Latanoprost 0.02 ml 04/12/17 22:00 05/12/17 21:42 Xalatan Opht OU 0.02 ml HS ELINA Administration Midodrine 10 mg 04/27/17 11:04 05/09/17 11:02 Proamatine PO 10 mg ONCE PRN Administration Diastolic blood pressure Nystatin 1 gm 05/11/17 15:51 05/13/17 07:51 Nystop Topical Powder TOP 1 applic Q8H ELINA Administration Pantoprazole Sodium 40 mg 04/18/17 10:00 05/13/17 10:01 Protonix Susp PO 40 mg DAILY ELINA Administration Potassium Phos/Sodium Phos 1 pkt 05/13/17 09:00 05/13/17 09:13 Neutra-Phos PO 1 pkt BIDPC ELINA Administration Rosuvastatin Calcium 10 mg 04/12/17 22:00 05/12/17 21:39 Crestor PO 10 mg HS ELINA Administration Thiamine HCl 100 mg 04/11/17 22:30 05/13/17 14:20 Vitamin B1 Inj IV 100 mg Q8H ELINA Administration Timolol Maleate 1 drop 04/12/17 10:00 05/13/17 09:51 Timoptic 0.5% Ophth Soln OU 1 drop BID ELINA Administration Vitamin B Complex/Vit C/Folic Acid 1 tab 04/12/17 08:00 05/13/17 07:47 Nephro-Alonzo PO 1 tab 0800 ELINA Administration - Patient Studies Lab Studies: Microbiology Studies 05/11/17 10:56 Blood Culture - Preliminary Blood-During Dialysis NO GROWTH AFTER 48 HOURS 05/08/17 09:40 Blood Culture - Final Blood-Venous NO GROWTH AFTER 5 DAYS Gram Stain - Final TEST NOT PERFORMED 05/10/17 12:41 Gram Stain - Final Other: Please Indicate Tissue Culture - Preliminary 05/08/17 09:50 Blood Culture - Final Blood-Venous NO GROWTH AFTER 5 DAYS Gram Stain - Final TEST NOT PERFORMED Lab Studies 05/13/17 05/13/17 05/13/17 Range/Units 14:14 12:06 09:02 WBC (4.8-10.8) K/uL RBC (3.80-5.20) Mil/uL Hgb (11.0-16.0) g/dL Hct (34.0-47.0) % MCV (81.0-99.0) fL MCH (27.0-31.0) pg MCHC (33.0-37.0) g/dL RDW (11.5-14.5) % Plt Count (130-400) K/uL MPV (7.2-11.7) fL Neut % (Auto) (50.0-75.0) % Lymph % (Auto) (20.0-40.0) % Maverick % (Auto) (0.0-10.0) % Eos % (Auto) (0.0-4.0) % Baso % (Auto) (0.0-2.0) % Neut # (1.8-7.0) K/uL Lymph # (1.0-4.3) K/uL Maverick # (0.0-0.8) K/uL Eos # (0.0-0.7) K/uL Baso # (0.0-0.2) K/uL Neutrophils % (Manual) (50-75) % Band Neutrophils % (0-2) % Lymphocytes % (Manual) (20-40) % Reactive Lymphs % (0-0) % Monocytes % (Manual) (0-10) % Eosinophils % (Manual) (0-4) % Metamyelocytes % (0-0) % Nucleated RBC % (0-0) % Toxic Granulation Dohle Bodies Platelet Estimate (NORMAL) Polychromasia Basophilic Stippling Anisocytosis (manual) Puncture Site Rr pCO2 25 L (35-45) mm/Hg pO2 35 L* (80-100) mm/Hg HCO3 17.0 L (21-28) mmol/L ABG pH 7.37 (7.35-7.45) ABG Total CO2 15.3 L (22-28) mmol/L ABG O2 Saturation 80.6 L (95-98) % ABG Base Excess -9.0 L (-2.0-3.0) mmol/L Joey Test Pos ABG Potassium 4.4 (3.6-5.2) mmol/L A-a O2 Difference 362.0 mm/Hg Respiratory Index 10.3 Glucose 342 H (65-105) mg/dl Lactate 5.3 H* (0.7-2.1) mmol/L Vent Mode Prvc Mechanical Rate 15 FiO2 60.0 % Tidal Volume 450 CPAP 5 Blood Gas Comments Venous Crit Value Called To Dr stafford Crit Value Called By Veronica [employer] operations investigator Crit Value Read Back Y Blood Gas Notified Time 1420 Sodium 141.0 (132-148) mmol/L Potassium (3.6-5.2) mmol/L Chloride 108.0 H (98-107) mmol/L Carbon Dioxide (22-30) mmol/L Anion Gap (10-20) BUN (7-17) mg/dL Creatinine (0.7-1.2) mg/dL Est GFR ( Amer) Est GFR (Non-Af Amer) POC Glucose (mg/dL) 378 H (65-110) mg/dL Random Glucose (65-105) mg/dL Calcium (8.6-10.4) mg/dl Phosphorus (2.5-4.5) mg/dL Magnesium (1.6-2.3) mg/dL Total Bilirubin (0.2-1.3) mg/dL AST (14-36) U/L ALT (9-52) U/L Alkaline Phosphatase (38-126) U/L Total Protein (6.3-8.3) g/dL Albumin (3.5-5.0) g/dL Globulin (2.2-3.9) gm/dL Albumin/Globulin Ratio (1.0-2.1) Procalcitonin (0.19-0.49) NG/ML Arterial Blood Potassium 4.4 (3.6-5.2) mmol/L C. difficile Ag & Toxin Negative (NEGATIVE) 05/13/17 05/13/17 05/13/17 Range/Units 06:26 06:26 05:44 WBC 26.0 H (4.8-10.8) K/uL RBC 2.83 L (3.80-5.20) Mil/uL Hgb 8.7 L (11.0-16.0) g/dL Hct 26.9 L (34.0-47.0) % MCV 94.8 (81.0-99.0) fL MCH 30.7 (27.0-31.0) pg MCHC 32.4 L (33.0-37.0) g/dL RDW 18.1 H (11.5-14.5) % Plt Count 223 (130-400) K/uL MPV 10.2 (7.2-11.7) fL Neut % (Auto) 74.9 (50.0-75.0) % Lymph % (Auto) 14.2 L (20.0-40.0) % Maverick % (Auto) 9.2 (0.0-10.0) % Eos % (Auto) 1.2 (0.0-4.0) % Baso % (Auto) 0.5 (0.0-2.0) % Neut # 19.4 H (1.8-7.0) K/uL Lymph # 3.7 (1.0-4.3) K/uL Maverick # 2.4 H (0.0-0.8) K/uL Eos # 0.3 (0.0-0.7) K/uL Baso # 0.1 (0.0-0.2) K/uL Neutrophils % (Manual) 55 (50-75) % Band Neutrophils % 22 H* (0-2) % Lymphocytes % (Manual) 6 L (20-40) % Reactive Lymphs % 1 H (0-0) % Monocytes % (Manual) 14 H (0-10) % Eosinophils % (Manual) 1 (0-4) % Metamyelocytes % 1 H (0-0) % Nucleated RBC % 9 H (0-0) % Toxic Granulation Present Dohle Bodies Present Platelet Estimate Normal (NORMAL) Polychromasia Slight Basophilic Stippling Slight Anisocytosis (manual) Moderate Puncture Site pCO2 (35-45) mm/Hg pO2 (80-100) mm/Hg HCO3 (21-28) mmol/L ABG pH (7.35-7.45) ABG Total CO2 (22-28) mmol/L ABG O2 Saturation (95-98) % ABG Base Excess (-2.0-3.0) mmol/L Joey Test ABG Potassium (3.6-5.2) mmol/L A-a O2 Difference mm/Hg Respiratory Index Glucose (65-105) mg/dl Lactate (0.7-2.1) mmol/L Vent Mode Mechanical Rate FiO2 % Tidal Volume CPAP Blood Gas Comments Crit Value Called To Crit Value Called By Crit Value Read Back Blood Gas Notified Time Sodium 133 (132-148) mmol/L Potassium 4.2 (3.6-5.2) mmol/L Chloride 100 (98-107) mmol/L Carbon Dioxide 27 (22-30) mmol/L Anion Gap 10 (10-20) BUN 55 H (7-17) mg/dL Creatinine 2.1 H (0.7-1.2) mg/dL Est GFR ( Amer) 28 Est GFR (Non-Af Amer) 23 POC Glucose (mg/dL) 237 H (65-110) mg/dL Random Glucose 209 H (65-105) mg/dL Calcium 7.2 L (8.6-10.4) mg/dl Phosphorus 1.9 L (2.5-4.5) mg/dL Magnesium 2.1 (1.6-2.3) mg/dL Total Bilirubin 0.5 (0.2-1.3) mg/dL AST 51 H D (14-36) U/L ALT 38 (9-52) U/L Alkaline Phosphatase 330 H (38-126) U/L Total Protein 3.6 L (6.3-8.3) g/dL Albumin 1.8 L (3.5-5.0) g/dL Globulin 1.7 L (2.2-3.9) gm/dL Albumin/Globulin Ratio 1.1 (1.0-2.1) Procalcitonin (0.19-0.49) NG/ML Arterial Blood Potassium (3.6-5.2) mmol/L C. difficile Ag & Toxin (NEGATIVE) 05/13/17 05/12/17 05/12/17 Range/Units 00:03 18:07 13:58 WBC (4.8-10.8) K/uL RBC (3.80-5.20) Mil/uL Hgb (11.0-16.0) g/dL Hct (34.0-47.0) % MCV (81.0-99.0) fL MCH (27.0-31.0) pg MCHC (33.0-37.0) g/dL RDW (11.5-14.5) % Plt Count (130-400) K/uL MPV (7.2-11.7) fL Neut % (Auto) (50.0-75.0) % Lymph % (Auto) (20.0-40.0) % Maverick % (Auto) (0.0-10.0) % Eos % (Auto) (0.0-4.0) % Baso % (Auto) (0.0-2.0) % Neut # (1.8-7.0) K/uL Lymph # (1.0-4.3) K/uL Maverick # (0.0-0.8) K/uL Eos # (0.0-0.7) K/uL Baso # (0.0-0.2) K/uL Neutrophils % (Manual) (50-75) % Band Neutrophils % (0-2) % Lymphocytes % (Manual) (20-40) % Reactive Lymphs % (0-0) % Monocytes % (Manual) (0-10) % Eosinophils % (Manual) (0-4) % Metamyelocytes % (0-0) % Nucleated RBC % (0-0) % Toxic Granulation Dohle Bodies Platelet Estimate (NORMAL) Polychromasia Basophilic Stippling Anisocytosis (manual) Puncture Site pCO2 (35-45) mm/Hg pO2 (80-100) mm/Hg HCO3 (21-28) mmol/L ABG pH (7.35-7.45) ABG Total CO2 (22-28) mmol/L ABG O2 Saturation (95-98) % ABG Base Excess (-2.0-3.0) mmol/L Joey Test ABG Potassium (3.6-5.2) mmol/L A-a O2 Difference mm/Hg Respiratory Index Glucose (65-105) mg/dl Lactate (0.7-2.1) mmol/L Vent Mode Mechanical Rate FiO2 % Tidal Volume CPAP Blood Gas Comments Crit Value Called To Crit Value Called By Crit Value Read Back Blood Gas Notified Time Sodium (132-148) mmol/L Potassium (3.6-5.2) mmol/L Chloride (98-107) mmol/L Carbon Dioxide (22-30) mmol/L Anion Gap (10-20) BUN (7-17) mg/dL Creatinine (0.7-1.2) mg/dL Est GFR ( Amer) Est GFR (Non-Af Amer) POC Glucose (mg/dL) 249 H 269 H (65-110) mg/dL Random Glucose (65-105) mg/dL Calcium (8.6-10.4) mg/dl Phosphorus (2.5-4.5) mg/dL Magnesium (1.6-2.3) mg/dL Total Bilirubin (0.2-1.3) mg/dL AST (14-36) U/L ALT (9-52) U/L Alkaline Phosphatase (38-126) U/L Total Protein (6.3-8.3) g/dL Albumin (3.5-5.0) g/dL Globulin (2.2-3.9) gm/dL Albumin/Globulin Ratio (1.0-2.1) Procalcitonin > 200.00 H (0.19-0.49) NG/ML Arterial Blood Potassium (3.6-5.2) mmol/L C. difficile Ag & Toxin (NEGATIVE) Laboratory Results - last 24 hr 05/12/17 05/12/17 05/13/17 13:58 18:07 00:03 WBC RBC Hgb Hct MCV MCH MCHC RDW Plt Count MPV Neut % (Auto) Lymph % (Auto) Maverick % (Auto) Eos % (Auto) Baso % (Auto) Neut # Lymph # Maverick # Eos # Baso # Neutrophils % (Manual) Band Neutrophils % Lymphocytes % (Manual) Reactive Lymphs % Monocytes % (Manual) Eosinophils % (Manual) Metamyelocytes % Nucleated RBC % Toxic Granulation Dohle Bodies Platelet Estimate Polychromasia Basophilic Stippling Anisocytosis (manual) Puncture Site pCO2 pO2 HCO3 ABG pH ABG Total CO2 ABG O2 Saturation ABG Base Excess Joey Test ABG Potassium A-a O2 Difference Respiratory Index Glucose Lactate Vent Mode Mechanical Rate FiO2 Tidal Volume CPAP Blood Gas Comments Crit Value Called To Crit Value Called By Crit Value Read Back Blood Gas Notified Time Sodium Potassium Chloride Carbon Dioxide Anion Gap BUN Creatinine Est GFR ( Amer) Est GFR (Non-Af Amer) POC Glucose (mg/dL) 269 H 249 H Random Glucose Calcium Phosphorus Magnesium Total Bilirubin AST ALT Alkaline Phosphatase Total Protein Albumin Globulin Albumin/Globulin Ratio Procalcitonin > 200.00 H Arterial Blood Potassium C. difficile Ag & Toxin 05/13/17 05/13/17 05/13/17 05:44 06:26 06:26 WBC 26.0 H RBC 2.83 L Hgb 8.7 L Hct 26.9 L MCV 94.8 MCH 30.7 MCHC 32.4 L RDW 18.1 H Plt Count 223 MPV 10.2 Neut % (Auto) 74.9 Lymph % (Auto) 14.2 L Maverick % (Auto) 9.2 Eos % (Auto) 1.2 Baso % (Auto) 0.5 Neut # 19.4 H Lymph # 3.7 Maverick # 2.4 H Eos # 0.3 Baso # 0.1 Neutrophils % (Manual) 55 Band Neutrophils % 22 H* Lymphocytes % (Manual) 6 L Reactive Lymphs % 1 H Monocytes % (Manual) 14 H Eosinophils % (Manual) 1 Metamyelocytes % 1 H Nucleated RBC % 9 H Toxic Granulation Present Dohle Bodies Present Platelet Estimate Normal Polychromasia Slight Basophilic Stippling Slight Anisocytosis (manual) Moderate Puncture Site pCO2 pO2 HCO3 ABG pH ABG Total CO2 ABG O2 Saturation ABG Base Excess Joey Test ABG Potassium A-a O2 Difference Respiratory Index Glucose Lactate Vent Mode Mechanical Rate FiO2 Tidal Volume CPAP Blood Gas Comments Crit Value Called To Crit Value Called By Crit Value Read Back Blood Gas Notified Time Sodium 133 Potassium 4.2 Chloride 100 Carbon Dioxide 27 Anion Gap 10 BUN 55 H Creatinine 2.1 H Est GFR ( Amer) 28 Est GFR (Non-Af Amer) 23 POC Glucose (mg/dL) 237 H Random Glucose 209 H Calcium 7.2 L Phosphorus 1.9 L Magnesium 2.1 Total Bilirubin 0.5 AST 51 H D ALT 38 Alkaline Phosphatase 330 H Total Protein 3.6 L Albumin 1.8 L Globulin 1.7 L Albumin/Globulin Ratio 1.1 Procalcitonin Arterial Blood Potassium C. difficile Ag & Toxin 05/13/17 05/13/17 05/13/17 09:02 12:06 14:14 WBC RBC Hgb Hct MCV MCH MCHC RDW Plt Count MPV Neut % (Auto) Lymph % (Auto) Maverick % (Auto) Eos % (Auto) Baso % (Auto) Neut # Lymph # Maverick # Eos # Baso # Neutrophils % (Manual) Band Neutrophils % Lymphocytes % (Manual) Reactive Lymphs % Monocytes % (Manual) Eosinophils % (Manual) Metamyelocytes % Nucleated RBC % Toxic Granulation Dohle Bodies Platelet Estimate Polychromasia Basophilic Stippling Anisocytosis (manual) Puncture Site Rr pCO2 25 L pO2 35 L* HCO3 17.0 L ABG pH 7.37 ABG Total CO2 15.3 L ABG O2 Saturation 80.6 L ABG Base Excess -9.0 L Joey Test Pos ABG Potassium 4.4 A-a O2 Difference 362.0 Respiratory Index 10.3 Glucose 342 H Lactate 5.3 H* Vent Mode Prvc Mechanical Rate 15 FiO2 60.0 Tidal Volume 450 CPAP 5 Blood Gas Comments Venous Crit Value Called To Dr stafford Crit Value Called By Veronica [employer] operations investigator Crit Value Read Back Y Blood Gas Notified Time 1420 Sodium 141.0 Potassium Chloride 108.0 H Carbon Dioxide Anion Gap BUN Creatinine Est GFR ( Amer) Est GFR (Non-Af Amer) POC Glucose (mg/dL) 378 H Random Glucose Calcium Phosphorus Magnesium Total Bilirubin AST ALT Alkaline Phosphatase Total Protein Albumin Globulin Albumin/Globulin Ratio Procalcitonin Arterial Blood Potassium 4.4 C. difficile Ag & Toxin Negative Fingerstick Blood Sugar Results: 378 Review of Systems - Review of Systems Systems not reviewed;Unavailable: Altered Mental Status Assessment/Plan - Assessment and Plan (Free Text) Plan: 71F with a history of dialysis, renal failure and congestive heart failure, diabetes, hypertension, peripheral vascular disease, history of left knee below- knee limitation who was brought to the ICU for sepsis. Neuro: Propofol drip Dilaudid 0.5 mg IVP Q6H HEENT: brimonidine 0.2% 1 ml OU TID latanoprost 0.02 ml OU timolol 1 drop OU BID Respiratory: Intubated (RR 15, TV 450, PEEP 5, FiO2 60) Chest CT angio: Filling defects are noted at both upper lobes pulmonary arteries suggestive of pulmonary embolus. Large bilateral pleural effusion. Mild cardiomegaly. [id number] pericardial effusion. [id number] anasarca. Lower lobe atelectasis due to pleural effusion. CXR (05/08/17): worsening left pleural effusion Hem: H&H: 8.7/26.9 Plt 223 Eliquis 5mg PO daily Procrit Nephro: I - 1270 O - [address] Ambrose consulted, help appreciated Pt undergoes hemodialysis Tues/Thurs/Sat Ergocalcierol 1 capsule PO Q7D Procrit Fluid, Electrolytes, Diet Neutrophos BID Tube feeds Thiamine Vitamin B complex Endo: DM ISS Lantus 10units SC HS on hold Hypoglycemic protocol Cardio: hx of diastolic CHF MAP >65, EF61% Midodrine 10 mg PRN Crestor 10mg PO HS ID: Sepsis WBC 26 Bands 22 Lactate 5.3 on 05/11 lactate 2.1 procal >200 (05/12) Tmax overnight: 100.3 wound culture showing sera f/u tissue culture Infectious Disease, Dr. Wellington consulted, help appreciated abx per ID Fluconazole 200mg IVPB q24h Nystatin 1g TOP Q8 Primaxin 500 mg Q12 wound vac for left AKA wound - possible source of infection GI AST 51 ALT 38 Prophylactic Care: GI: Protonix 40mg PO daily <Jordan Stafford P - Last Filed: 05/13/17 18:24> CCU Objective - Vital Signs / Intake & Output Intake and Output (Last 8hrs): Intake & Output 05/13/17 05/13/17 05/13/17 06:59 14:59 22:59 Intake Total 240 8 Output Total 0 Balance 240 8 Weight 129 lb 8 oz Intake: IV 8 Tube Feeding 240 Output: Drainage 0 Left Knee 0 Other: # Bowel Movements 1 - Medications Active Medications: Active Medications Generic Name Dose Route Start Last Admin Trade Name Freq PRN Reason Stop Dose Admin Acetaminophen 650 mg 05/13/17 09:40 Tylenol 650mg/20.3ml Solution Ud PO Q6 PRN Fever >100.4 F Albumin Human 12.5 gm 05/13/17 12:00 05/13/17 12:01 Albumin Human 5% (12.5 Gm/250 Ml) IV 12.5 gm MWF PRN Administration hypotension Apixaban 5 mg 05/13/17 10:00 05/13/17 10:02 Eliquis PO 5 mg BID ELINA Administration Brimonidine Tartrate 1 ml 04/12/17 10:00 05/13/17 14:24 Alphagan 0.2% Opht OU 1 applic TID ELINA Administration Collagenase 0 gm 05/12/17 11:15 05/13/17 10:07 Santyl TOP Not Given DAILY ELINA Epoetin Maxwell 10,000 unit 04/27/17 12:00 05/13/17 13:31 Procrit IV 10,000 unit MWF ELINA Administration Ergocalciferol 1 cap 04/11/17 22:30 05/09/17 21:48 Drisdol 50,000 Intl Units Cap PO 1 cap Q7D ELINA Administration Glucagon 1 mg 04/19/17 08:20 05/02/17 22:26 Glucagen Diagnostic Kit IM 1 mg STAT PRN Administration Hypoglycemia Protocol Protocol Hydromorphone HCl 0.5 mg 05/13/17 08:45 Dilaudid IVP Q6H PRN Pain, severe (8-10) Fluconazole 100 mls @ 100 mls/hr 05/11/17 08:15 05/13/17 07:47 Diflucan Iv 200 Mg/100 Ml Ns IVPB 100 mls/hr Q24H ELINA Administration Cefepime HCl 1 gm in 50 mls @ 100 mls/hr 05/12/17 10:45 05/13/17 09:45 Maxipime Iv 1 Gm Premix IVPB 100 mls/hr Q24H ELINA Administration Linezolid 600 mg in 300 mls @ 200 mls/hr 05/12/17 22:00 05/13/17 10:00 Zyvox 600mg/300ml D5w IVPB 200 mls/hr Q12 ELINA Administration Norepinephrine Bitartrate 8 mg 250 mls @ 7.5 mls/hr 05/13/17 12:20 05/13/17 13:45 / Dextrose IV 3 mcg/min .Q24H PRN 5.62 mls/hr TITRATE PER MD ORDER Titration Protocol 4 MCG/MIN Propofol 1,000 mg in 100 mls @ 1.762 mls/hr 05/13/17 15:41 05/13/17 16:05 Diprivan IV 5 mcg/kg/min .Q24H PRN 1.762 mls/hr TITRATE PER MD ORDER Administration Protocol 5 MCG/KG/MIN Insulin Glargine 10 unit 05/02/17 22:00 Lantus SC HS ELINA Insulin Human Regular 0 unit 05/09/17 00:00 05/13/17 13:35 Novolin R SC 8 unit Q6 ELINA Administration Protocol Latanoprost 0.02 ml 04/12/17 22:00 05/12/17 21:42 Xalatan Opht OU 0.02 ml HS ELINA Administration Midodrine 10 mg 04/27/17 11:04 05/09/17 11:02 Proamatine PO 10 mg ONCE PRN Administration Diastolic blood pressure Nystatin 1 gm 05/11/17 15:51 05/13/17 07:51 Nystop Topical Powder TOP 1 applic Q8H ELINA Administration Pantoprazole Sodium 40 mg 04/18/17 10:00 05/13/17 10:01 Protonix Susp PO 40 mg DAILY ELINA Administration Potassium Phos/Sodium Phos 1 pkt 05/13/17 09:00 05/13/17 09:13 Neutra-Phos PO 1 pkt BIDPC ELINA Administration Rosuvastatin Calcium 10 mg 04/12/17 22:00 05/12/17 21:39 Crestor PO 10 mg HS ELINA Administration Thiamine HCl 100 mg 04/11/17 22:30 05/13/17 14:20 Vitamin B1 Inj IV 100 mg Q8H ELINA Administration Timolol Maleate 1 drop 04/12/17 10:00 05/13/17 09:51 Timoptic 0.5% Ophth Soln OU 1 drop BID ELINA Administration Vitamin B Complex/Vit C/Folic Acid 1 tab 04/12/17 08:00 05/13/17 07:47 Nephro-Alonzo PO 1 tab 0800 ELINA Administration - Patient Studies Lab Studies: Microbiology Studies 05/11/17 10:56 Blood Culture - Preliminary Blood-During Dialysis NO GROWTH AFTER 48 HOURS 05/08/17 09:40 Blood Culture - Final Blood-Venous NO GROWTH AFTER 5 DAYS Gram Stain - Final TEST NOT PERFORMED 05/10/17 12:41 Gram Stain - Final Other: Please Indicate Tissue Culture - Preliminary 05/08/17 09:50 Blood Culture - Final Blood-Venous NO GROWTH AFTER 5 DAYS Gram Stain - Final TEST NOT PERFORMED Lab Studies 05/13/17 05/13/17 05/13/17 Range/Units 14:14 12:06 09:02 WBC (4.8-10.8) K/uL RBC (3.80-5.20) Mil/uL Hgb (11.0-16.0) g/dL Hct (34.0-47.0) % MCV (81.0-99.0) fL MCH (27.0-31.0) pg MCHC (33.0-37.0) g/dL RDW (11.5-14.5) % Plt Count (130-400) K/uL MPV (7.2-11.7) fL Neut % (Auto) (50.0-75.0) % Lymph % (Auto) (20.0-40.0) % Maverick % (Auto) (0.0-10.0) % Eos % (Auto) (0.0-4.0) % Baso % (Auto) (0.0-2.0) % Neut # (1.8-7.0) K/uL Lymph # (1.0-4.3) K/uL Maverick # (0.0-0.8) K/uL Eos # (0.0-0.7) K/uL Baso # (0.0-0.2) K/uL Neutrophils % (Manual) (50-75) % Band Neutrophils % (0-2) % Lymphocytes % (Manual) (20-40) % Reactive Lymphs % (0-0) % Monocytes % (Manual) (0-10) % Eosinophils % (Manual) (0-4) % Metamyelocytes % (0-0) % Nucleated RBC % (0-0) % Toxic Granulation Dohle Bodies Platelet Estimate (NORMAL) Polychromasia Basophilic Stippling Anisocytosis (manual) Puncture Site Rr pCO2 25 L (35-45) mm/Hg pO2 35 L* (80-100) mm/Hg HCO3 17.0 L (21-28) mmol/L ABG pH 7.37 (7.35-7.45) ABG Total CO2 15.3 L (22-28) mmol/L ABG O2 Saturation 80.6 L (95-98) % ABG Base Excess -9.0 L (-2.0-3.0) mmol/L Joey Test Pos ABG Potassium 4.4 (3.6-5.2) mmol/L A-a O2 Difference 362.0 mm/Hg Respiratory Index 10.3 Glucose 342 H (65-105) mg/dl Lactate 5.3 H* (0.7-2.1) mmol/L Vent Mode Prvc Mechanical Rate 15 FiO2 60.0 % Tidal Volume 450 CPAP 5 Blood Gas Comments Venous Crit Value Called To Dr stafford Crit Value Called By Veronica 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 industry operations investigator Crit Value Read Back Y Blood Gas Notified Time 1420 Sodium 141.0 (132-148) mmol/L Potassium (3.6-5.2) mmol/L Chloride 108.0 H (98-107) mmol/L Carbon Dioxide (22-30) mmol/L Anion Gap (10-20) BUN (7-17) mg/dL Creatinine (0.7-1.2) mg/dL Est GFR ( Amer) Est GFR (Non-Af Amer) POC Glucose (mg/dL) 378 H (65-110) mg/dL Random Glucose (65-105) mg/dL Calcium (8.6-10.4) mg/dl Phosphorus (2.5-4.5) mg/dL Magnesium (1.6-2.3) mg/dL Total Bilirubin (0.2-1.3) mg/dL AST (14-36) U/L ALT (9-52) U/L Alkaline Phosphatase (38-126) U/L Total Protein (6.3-8.3) g/dL Albumin (3.5-5.0) g/dL Globulin (2.2-3.9) gm/dL Albumin/Globulin Ratio (1.0-2.1) Procalcitonin (0.19-0.49) NG/ML Arterial Blood Potassium 4.4 (3.6-5.2) mmol/L C. difficile Ag & Toxin Negative (NEGATIVE) 05/13/17 05/13/17 05/13/17 Range/Units 06:26 06:26 05:44 WBC 26.0 H (4.8-10.8) K/uL RBC 2.83 L (3.80-5.20) Mil/uL Hgb 8.7 L (11.0-16.0) g/dL Hct 26.9 L (34.0-47.0) % MCV 94.8 (81.0-99.0) fL MCH 30.7 (27.0-31.0) pg MCHC 32.4 L (33.0-37.0) g/dL RDW 18.1 H (11.5-14.5) % Plt Count 223 (130-400) K/uL MPV 10.2 (7.2-11.7) fL Neut % (Auto) 74.9 (50.0-75.0) % Lymph % (Auto) 14.2 L (20.0-40.0) % Maverick % (Auto) 9.2 (0.0-10.0) % Eos % (Auto) 1.2 (0.0-4.0) % Baso % (Auto) 0.5 (0.0-2.0) % Neut # 19.4 H (1.8-7.0) K/uL Lymph # 3.7 (1.0-4.3) K/uL Maverick # 2.4 H (0.0-0.8) K/uL Eos # 0.3 (0.0-0.7) K/uL Baso # 0.1 (0.0-0.2) K/uL Neutrophils % (Manual) 55 (50-75) % Band Neutrophils % 22 H* (0-2) % Lymphocytes % (Manual) 6 L (20-40) % Reactive Lymphs % 1 H (0-0) % Monocytes % (Manual) 14 H (0-10) % Eosinophils % (Manual) 1 (0-4) % Metamyelocytes % 1 H (0-0) % Nucleated RBC % 9 H (0-0) % Toxic Granulation Present Dohle Bodies Present Platelet Estimate Normal (NORMAL) Polychromasia Slight Basophilic Stippling Slight Anisocytosis (manual) Moderate Puncture Site pCO2 (35-45) mm/Hg pO2 (80-100) mm/Hg HCO3 (21-28) mmol/L ABG pH (7.35-7.45) ABG Total CO2 (22-28) mmol/L ABG O2 Saturation (95-98) % ABG Base Excess (-2.0-3.0) mmol/L Joey Test ABG Potassium (3.6-5.2) mmol/L A-a O2 Difference mm/Hg Respiratory Index Glucose (65-105) mg/dl Lactate (0.7-2.1) mmol/L Vent Mode Mechanical Rate FiO2 % Tidal Volume CPAP Blood Gas Comments Crit Value Called To Crit Value Called By Crit Value Read Back Blood Gas Notified Time Sodium 133 (132-148) mmol/L Potassium 4.2 (3.6-5.2) mmol/L Chloride 100 (98-107) mmol/L Carbon Dioxide 27 (22-30) mmol/L Anion Gap 10 (10-20) BUN 55 H (7-17) mg/dL Creatinine 2.1 H (0.7-1.2) mg/dL Est GFR ( Amer) 28 Est GFR (Non-Af Amer) 23 POC Glucose (mg/dL) 237 H (65-110) mg/dL Random Glucose 209 H (65-105) mg/dL Calcium 7.2 L (8.6-10.4) mg/dl Phosphorus 1.9 L (2.5-4.5) mg/dL Magnesium 2.1 (1.6-2.3) mg/dL Total Bilirubin 0.5 (0.2-1.3) mg/dL AST 51 H D (14-36) U/L ALT 38 (9-52) U/L Alkaline Phosphatase 330 H (38-126) U/L Total Protein 3.6 L (6.3-8.3) g/dL Albumin 1.8 L (3.5-5.0) g/dL Globulin 1.7 L (2.2-3.9) gm/dL Albumin/Globulin Ratio 1.1 (1.0-2.1) Procalcitonin (0.19-0.49) NG/ML Arterial Blood Potassium (3.6-5.2) mmol/L C. difficile Ag & Toxin (NEGATIVE) 05/13/17 05/12/17 05/12/17 Range/Units 00:03 18:07 13:58 WBC (4.8-10.8) K/uL RBC (3.80-5.20) Mil/uL Hgb (11.0-16.0) g/dL Hct (34.0-47.0) % MCV (81.0-99.0) fL MCH (27.0-31.0) pg MCHC (33.0-37.0) g/dL RDW (11.5-14.5) % Plt Count (130-400) K/uL MPV (7.2-11.7) fL Neut % (Auto) (50.0-75.0) % Lymph % (Auto) (20.0-40.0) % Maverick % (Auto) (0.0-10.0) % Eos % (Auto) (0.0-4.0) % Baso % (Auto) (0.0-2.0) % Neut # (1.8-7.0) K/uL Lymph # (1.0-4.3) K/uL Maverick # (0.0-0.8) K/uL Eos # (0.0-0.7) K/uL Baso # (0.0-0.2) K/uL Neutrophils % (Manual) (50-75) % Band Neutrophils % (0-2) % Lymphocytes % (Manual) (20-40) % Reactive Lymphs % (0-0) % Monocytes % (Manual) (0-10) % Eosinophils % (Manual) (0-4) % Metamyelocytes % (0-0) % Nucleated RBC % (0-0) % Toxic Granulation Dohle Bodies Platelet Estimate (NORMAL) Polychromasia Basophilic Stippling Anisocytosis (manual) Puncture Site pCO2 (35-45) mm/Hg pO2 (80-100) mm/Hg HCO3 (21-28) mmol/L ABG pH (7.35-7.45) ABG Total CO2 (22-28) mmol/L ABG O2 Saturation (95-98) % ABG Base Excess (-2.0-3.0) mmol/L Joey Test ABG Potassium (3.6-5.2) mmol/L A-a O2 Difference mm/Hg Respiratory Index Glucose (65-105) mg/dl Lactate (0.7-2.1) mmol/L Vent Mode Mechanical Rate FiO2 % Tidal Volume CPAP Blood Gas Comments Crit Value Called To Crit Value Called By Crit Value Read Back Blood Gas Notified Time Sodium (132-148) mmol/L Potassium (3.6-5.2) mmol/L Chloride (98-107) mmol/L Carbon Dioxide (22-30) mmol/L Anion Gap (10-20) BUN (7-17) mg/dL Creatinine (0.7-1.2) mg/dL Est GFR ( Amer) Est GFR (Non-Af Amer) POC Glucose (mg/dL) 249 H 269 H (65-110) mg/dL Random Glucose (65-105) mg/dL Calcium (8.6-10.4) mg/dl Phosphorus (2.5-4.5) mg/dL Magnesium (1.6-2.3) mg/dL Total Bilirubin (0.2-1.3) mg/dL AST (14-36) U/L ALT (9-52) U/L Alkaline Phosphatase (38-126) U/L Total Protein (6.3-8.3) g/dL Albumin (3.5-5.0) g/dL Globulin (2.2-3.9) gm/dL Albumin/Globulin Ratio (1.0-2.1) Procalcitonin > 200.00 H (0.19-0.49) NG/ML Arterial Blood Potassium (3.6-5.2) mmol/L C. difficile Ag & Toxin (NEGATIVE) Laboratory Results - last 24 hr 05/12/17 05/12/17 05/13/17 13:58 18:07 00:03 WBC RBC Hgb Hct MCV MCH MCHC RDW Plt Count MPV Neut % (Auto) Lymph % (Auto) Maverick % (Auto) Eos % (Auto) Baso % (Auto) Neut # Lymph # Maverick # Eos # Baso # Neutrophils % (Manual) Band Neutrophils % Lymphocytes % (Manual) Reactive Lymphs % Monocytes % (Manual) Eosinophils % (Manual) Metamyelocytes % Nucleated RBC % Toxic Granulation Dohle Bodies Platelet Estimate Polychromasia Basophilic Stippling Anisocytosis (manual) Puncture Site pCO2 pO2 HCO3 ABG pH ABG Total CO2 ABG O2 Saturation ABG Base Excess Joey Test ABG Potassium A-a O2 Difference Respiratory Index Glucose Lactate Vent Mode Mechanical Rate FiO2 Tidal Volume CPAP Blood Gas Comments Crit Value Called To Crit Value Called By Crit Value Read Back Blood Gas Notified Time Sodium Potassium Chloride Carbon Dioxide Anion Gap BUN Creatinine Est GFR ( Amer) Est GFR (Non-Af Amer) POC Glucose (mg/dL) 269 H 249 H Random Glucose Calcium Phosphorus Magnesium Total Bilirubin AST ALT Alkaline Phosphatase Total Protein Albumin Globulin Albumin/Globulin Ratio Procalcitonin > 200.00 H Arterial Blood Potassium C. difficile Ag & Toxin 05/13/17 05/13/17 05/13/17 05:44 06:26 06:26 WBC 26.0 H RBC 2.83 L Hgb 8.7 L Hct 26.9 L MCV 94.8 MCH 30.7 MCHC 32.4 L RDW 18.1 H Plt Count 223 MPV 10.2 Neut % (Auto) 74.9 Lymph % (Auto) 14.2 L Maverick % (Auto) 9.2 Eos % (Auto) 1.2 Baso % (Auto) 0.5 Neut # 19.4 H Lymph # 3.7 Maverick # 2.4 H Eos # 0.3 Baso # 0.1 Neutrophils % (Manual) 55 Band Neutrophils % 22 H* Lymphocytes % (Manual) 6 L Reactive Lymphs % 1 H Monocytes % (Manual) 14 H Eosinophils % (Manual) 1 Metamyelocytes % 1 H Nucleated RBC % 9 H Toxic Granulation Present Dohle Bodies Present Platelet Estimate Normal Polychromasia Slight Basophilic Stippling Slight Anisocytosis (manual) Moderate Puncture Site pCO2 pO2 HCO3 ABG pH ABG Total CO2 ABG O2 Saturation ABG Base Excess Joey Test ABG Potassium A-a O2 Difference Respiratory Index Glucose Lactate Vent Mode Mechanical Rate FiO2 Tidal Volume CPAP Blood Gas Comments Crit Value Called To Crit Value Called By Crit Value Read Back Blood Gas Notified Time Sodium 133 Potassium 4.2 Chloride 100 Carbon Dioxide 27 Anion Gap 10 BUN 55 H Creatinine 2.1 H Est GFR ( Amer) 28 Est GFR (Non-Af Amer) 23 POC Glucose (mg/dL) 237 H Random Glucose 209 H Calcium 7.2 L Phosphorus 1.9 L Magnesium 2.1 Total Bilirubin 0.5 AST 51 H D ALT 38 Alkaline Phosphatase 330 H Total Protein 3.6 L Albumin 1.8 L Globulin 1.7 L Albumin/Globulin Ratio 1.1 Procalcitonin Arterial Blood Potassium C. difficile Ag & Toxin 05/13/17 05/13/17 05/13/17 09:02 12:06 14:14 WBC RBC Hgb Hct MCV MCH MCHC RDW Plt Count MPV Neut % (Auto) Lymph % (Auto) Maverick % (Auto) Eos % (Auto) Baso % (Auto) Neut # Lymph # Maverick # Eos # Baso # Neutrophils % (Manual) Band Neutrophils % Lymphocytes % (Manual) Reactive Lymphs % Monocytes % (Manual) Eosinophils % (Manual) Metamyelocytes % Nucleated RBC % Toxic Granulation Dohle Bodies Platelet Estimate Polychromasia Basophilic Stippling Anisocytosis (manual) Puncture Site Rr pCO2 25 L pO2 35 L* HCO3 17.0 L ABG pH 7.37 ABG Total CO2 15.3 L ABG O2 Saturation 80.6 L ABG Base Excess -9.0 L Joey Test Pos ABG Potassium 4.4 A-a O2 Difference 362.0 Respiratory Index 10.3 Glucose 342 H Lactate 5.3 H* Vent Mode Prvc Mechanical Rate 15 FiO2 60.0 Tidal Volume 450 CPAP 5 Blood Gas Comments Venous Crit Value Called To Dr stafford Crit Value Called By Veronica [employer] industry operations investigator Crit Value Read Back Y Blood Gas Notified Time 1420 Sodium 141.0 Potassium Chloride 108.0 H Carbon Dioxide Anion Gap BUN Creatinine Est GFR ( Amer) Est GFR (Non-Af Amer) POC Glucose (mg/dL) 378 H Random Glucose Calcium Phosphorus Magnesium Total Bilirubin AST ALT Alkaline Phosphatase Total Protein Albumin Globulin Albumin/Globulin Ratio Procalcitonin Arterial Blood Potassium 4.4 C. difficile Ag & Toxin Negative Attending/Attestation - Attestation I have personally seen and examined this patient.: Yes I have fully participated in the care of the patient.: Yes I have reviewed all pertinent clinical information: Yes Notes (Text): Patient became unresponsive during hd, was hypotensive, about 0.5lit fluid was taken during hd. Code blue was called patient was intubated by me with size 7.5 tube, mac 3 blade used, cords visualized, confirmed with capnometer, secured with schwartz at 23cm at teeth, patient didn't needed any other meds other then levophed, with was soon titrated down, in about 1 hr post event she was moving around needed sedation. 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 Poor prognosis.
[2017-05-13] MEDS ORDERED: Gentamicin 160 MG in Sodium Chloride 0.9% 100 ML IVPB STA (18:21)
--- NOTE | 2017-05-13 19:05 | PCM.RRT ---
<AdrielPoonam - Last Filed: 05/13/17 18:56> RECREATION FACILITY ATTENDANT Nurses Assessment - Situation Date: 05/08/17 Time RECREATION FACILITY ATTENDANT was called: 10:56 RECREATION FACILITY ATTENDANT Responder Arrival Time:: 10:56 RECREATION FACILITY ATTENDANT Location:: ICU Room Number: 568B RECREATION FACILITY ATTENDANT Reason for Call: Bradycardia, Respiratory Distress RECREATION FACILITY ATTENDANT Called By: Physician - IV IV Inserted during RECREATION FACILITY ATTENDANT?: No IV Fluids Initiated During RECREATION FACILITY ATTENDANT?: IV Bolus 1L - Respiratory RECREATION FACILITY ATTENDANT Delivery Method: Nasal Cannula @L/min (2) Received Nebulizer Treatments: No Secretions Suctioned?: No - Ventilator Settings Mode: PRVC Ventilator Respiratory Rate Settin Ventilator Tidal Volume Settin PEEP/CPAP (cm H2O): 5 SAO2 %: 100 FIO2 (% Oxygen): 60 - Medication Medications Administered During RECREATION FACILITY ATTENDANT: Fluid Bolus - Diagnostic Test Ordered Chest X-Ray: Yes - Stat Labs Ordered RECREATION FACILITY ATTENDANT Stat Labs Ordered: LACTIC ACID CPR started during RECREATION FACILITY ATTENDANT?: No - Vital Signs Vital Signs: Rapid Response Vital Sign Blood Pressure 82/56 Pulse Rate 113 Respiratory Rate 18 Temperature 100.5 F Oxygen Saturation 99 - [place] Coma Scale Coma Scale Verbal: Confused/able to answer - Sepsis Screen Part 1 Sepsis Screen Part 1: Hypotensive - Sepsis Screen Part 2 Sepsis Screen Part 2: Glucose elevated, Pt not on steroids, Bands over 10% - Time RECREATION FACILITY ATTENDANT Ended Time RECREATION FACILITY ATTENDANT Ended: 10:50 - Vital Signs at end of RECREATION FACILITY ATTENDANT Vital Signs at end of RECREATION FACILITY ATTENDANT: Rapid Response End Vital Sign Blood Pressure 135/66 Pulse Rate 110 Respiratory Rate 20 Temperature 100.5 F O2 Sat by Pulse Oximetry 98 - Recommendations 5) RECREATION FACILITY ATTENDANT Level of Care Recommendations: Remain in current setting Notifications: Attending Physician, Consultations, Family or Designated Caregiver I.Reason for RECREATION FACILITY ATTENDANT - A) Acute Change in Patient: (Select all that apply): Acute change in respiratory rate less than 8 or greater than 28 Subjective: Donte Li was called at 13:07. Patient was found to have a pulse however patient had agonal breathing and was not responding to sternal rub. BP 85/25, HR 74, RR 22. O2 sat was not reading. Patient was intubated. Patient stabilized and O2 sat began to read at 100. CXR obtained and satisfactory placement of ET tube confirmed. Family and PMD notified. - Respiratory Oxygen Delivery Method: Nasal Cannula @L/min (2) - Respiratory Exam Additional comments: agonal breathing pattern - Cardiovascular Exam Cardiovascular Exam: RRR, +S1, +S2 Plan - Assessment of Findings&Treatment Plan CXR confirmed ET tube placement Family and PMD notified Monitor vitals <Jordan Stafford P - Last Filed: 05/17/17 21:28> RECREATION FACILITY ATTENDANT Nurses Assessment - Vital Signs Vital Signs: Rapid Response Vital Sign Blood Pressure 82/56 Pulse Rate 113 Respiratory Rate 18 Temperature 100.5 F Oxygen Saturation 99 - Vital Signs at end of RECREATION FACILITY ATTENDANT Vital Signs at end of RECREATION FACILITY ATTENDANT: Rapid Response End Vital Sign Blood Pressure 135/66 Pulse Rate 110 Respiratory Rate 20 Temperature 100.5 F O2 Sat by Pulse Oximetry 98 Attending/Attestation - Attestation I have personally seen and examined this patient.: Yes I have fully participated in the care of the patient.: Yes I have reviewed all pertinent clinical information, including history, physical exam and plan: Yes
[2017-05-13] MEDS: Latanoprost 2.5 ml Opht Soln OU SCH (21:00)
[2017-05-13] MEDS: Acetaminophen 650mg/20.3ml solution UD PO PRN (21:00)
[2017-05-14 05:45] LABS: ABG ALLEN TEST POS; ABG MECHANICAL RATE 15; ARTERIAL BLOOD GAS MODE PRVC; ARTERIAL BLOOD HGB O2 SAT 97.2 % (95.0-98.0); ATERIAL BLOOD GAS PEEP 5; CARBOXYHEMOGLOBIN 1.5 % (0.5-1.5); DRAW SITE RR; HHB 0.1 % (0.0-5.0); METHEMOGLOBIN 1.1 % (0.0-3.0)
[2017-05-14] MEDS: (Novolin R) Insulin Human Regular 100 units/ml vial SC SCH ×5 (06:15→21:15)
[2017-05-14] MEDS: Thiamine 100 mg/ml Inj IV SCH ×3 (06:15→21:30)
[2017-05-14 06:57] LABS: ALB/GLOB RATIO 0.8 (1.0-2.1); BILIRUBIN,TOTAL 0.5 mg/dL (0.2-1.3); CALCIUM 7.3 mg/dl (8.6-10.4); PHOSPHOROUS 2.2 mg/dL (2.5-4.5); POTASSIUM 3.7 mmol/L (3.6-5.2); TOTAL PROTEIN 4.1 g/dL (6.3-8.3)
[2017-05-14 07:12] LABS: BASO % 0.1 % (0.0-2.0); EOS # 0.1 K/uL (0.0-0.7); EOS % 0.4 % (0.0-4.0); HEMATOCRIT 23.2 % (34.0-47.0); LYMPH # 3.2 K/uL (1.0-4.3); LYMPH % 10.6 % (20.0-40.0); MEAN CORPUSCULAR HEMOGLOBIN 32.6 pg (27.0-31.0); MEAN CORPUSCULAR HGB CONC 33.6 g/dL (33.0-37.0); MEAN PLATELET VOLUME 10.6 fL (7.2-11.7); MONO # 1.4 K/uL (0.0-0.8); MONO % 4.7 % (0.0-10.0); NRBC % 1.5 % (0.0-2.0); RED CELL DISTRIBUTION WIDTH 18.5 % (11.5-14.5)
[2017-05-14 07:15] LABS: MEAN CELL VOLUME 96.8 fL (81.0-99.0)
--- NOTE | 2017-05-14 07:34 | CP.CCUPN ---
<Poonam Morel - Last Filed: 05/14/17 15:17> CCU Subjective - Physician Review Subjective (Free Text): 05/14/17 14:28 Patient seen and examined at bedside. No acute events overnight. Patient intubated. ROS unattainable. CCU Objective - Vital Signs / Intake & Output Intake and Output (Last 8hrs): Intake & Output 05/13/17 05/14/17 05/14/17 22:59 06:59 14:59 Intake Total 545.0 317.5 Balance 545.0 317.5 Intake: IV 20 Intake, IV Amount 185.0 167.5 Right PICC 178.0 150 Right PICC #2 7.0 17.5 Oral 160 Tube Feeding 180 150 Other: # Bowel Movements 0 - Physical Exam Physical Exam Limitations: Positive for: Other (sedated and intubated ) Head: Positive for: Atraumatic Pupils: Positive for: PERRL Respiratory/Chest: Positive for: Clear to Auscultation, Good Air Exchange, Other (intubated ). Negative for: Respiratory Distress, Accessory Muscle Use, Wheezes, Rales, Rhonchi Cardiovascular: Positive for: Regular Rate and Rhythm Abdomen: Positive for: Feeding Tubes. Negative for: Tenderness, Distention Upper Extremity: Positive for: Edema Lower Extremity: Positive for: Edema, Other (s/p left AKA, wound of surgical site with wound vac ) Neurological: Positive for: Other (Intubated and sedated ) Skin: Positive for: Warm, Dry - Medications Active Medications: Active Medications Generic Name Dose Route Start Last Admin Trade Name Freq PRN Reason Stop Dose Admin Acetaminophen 650 mg 05/13/17 09:40 05/13/17 21:00 Tylenol 650mg/20.3ml Solution Ud PO 650 mg Q6 PRN Administration Fever >100.4 F Albumin Human 12.5 gm 05/13/17 12:00 05/13/17 12:01 Albumin Human 5% (12.5 Gm/250 Ml) IV 12.5 gm MWF PRN Administration hypotension Apixaban 5 mg 05/13/17 10:00 05/13/17 18:49 Eliquis PO 5 mg BID ELINA Administration Brimonidine Tartrate 1 ml 04/12/17 10:00 05/13/17 18:51 Alphagan 0.2% Opht OU 1 applic TID ELINA Administration Collagenase 0 gm 05/12/17 11:15 05/13/17 10:07 Santyl TOP Not Given DAILY ELINA Epoetin Maxwell 10,000 unit 04/27/17 12:00 05/13/17 13:31 Procrit IV 10,000 unit MWF ELINA Administration Ergocalciferol 1 cap 04/11/17 22:30 05/09/17 21:48 Drisdol 50,000 Intl Units Cap PO 1 cap Q7D ELINA Administration Glucagon 1 mg 04/19/17 08:20 05/02/17 22:26 Glucagen Diagnostic Kit IM 1 mg STAT PRN Administration Hypoglycemia Protocol Protocol Hydromorphone HCl 0.5 mg 05/13/17 08:45 Dilaudid IVP Q6H PRN Pain, severe (8-10) Fluconazole 100 mls @ 100 mls/hr 05/11/17 08:15 05/13/17 07:47 Diflucan Iv 200 Mg/100 Ml Ns IVPB 100 mls/hr Q24H ELINA Administration Cefepime HCl 1 gm in 50 mls @ 100 mls/hr 05/12/17 10:45 05/13/17 09:45 Maxipime Iv 1 Gm Premix IVPB 100 mls/hr Q24H ELINA Administration Linezolid 600 mg in 300 mls @ 200 mls/hr 05/12/17 22:00 05/13/17 21:00 Zyvox 600mg/300ml D5w IVPB 200 mls/hr Q12 ELINA Administration Norepinephrine Bitartrate 8 mg 250 mls @ 7.5 mls/hr 05/13/17 12:20 05/13/17 20:00 / Dextrose IV 0 mcg/min .Q24H PRN 0 mls/hr TITRATE PER MD ORDER Titration Protocol 4 MCG/MIN Propofol 1,000 mg in 100 mls @ 1.762 mls/hr 05/13/17 15:41 05/13/17 20:00 Diprivan IV 10 mcg/kg/min .Q24H PRN 3.524 mls/hr TITRATE PER MD ORDER Titration Protocol 5 MCG/KG/MIN Insulin Glargine 10 unit 05/02/17 22:00 Lantus SC HS [facility] Insulin Human Regular 0 unit 05/09/17 00:00 05/14/17 06:15 Novolin R SC 6 unit Q6 ELINA Administration Protocol Latanoprost 0.02 ml 04/12/17 22:00 05/13/17 21:00 Xalatan Opht OU 0.02 ml HS ELINA Administration Midodrine 10 mg 04/27/17 11:04 05/09/17 11:02 Proamatine PO 10 mg ONCE PRN Administration Diastolic blood pressure Nystatin 1 gm 05/11/17 15:51 05/13/17 23:40 Nystop Topical Powder TOP 1 applic Q8H ELINA Administration Pantoprazole Sodium 40 mg 04/18/17 10:00 05/13/17 10:01 Protonix Susp PO 40 mg DAILY ELINA Administration Potassium Phos/Sodium Phos 1 pkt 05/13/17 09:00 05/13/17 18:48 Neutra-Phos PO 1 pkt BIDPC ELINA Administration Rosuvastatin Calcium 10 mg 04/12/17 22:00 05/13/17 21:00 Crestor PO 10 mg HS ELINA Administration Thiamine HCl 100 mg 04/11/17 22:30 05/14/17 06:15 Vitamin B1 Inj IV 100 mg Q8H ELINA Administration Timolol Maleate 1 drop 04/12/17 10:00 05/13/17 18:52 Timoptic 0.5% Ophth Soln OU 1 drop BID ELINA Administration Vitamin B Complex/Vit C/Folic Acid 1 tab 04/12/17 08:00 05/13/17 07:47 Nephro-Alonzo PO 1 tab 0800 ELINA Administration - Patient Studies Lab Studies: Microbiology Studies 05/11/17 10:56 Blood Culture - Preliminary Blood-During Dialysis NO GROWTH AFTER 48 HOURS 05/08/17 09:40 Blood Culture - Final Blood-Venous NO GROWTH AFTER 5 DAYS Gram Stain - Final TEST NOT PERFORMED 05/10/17 12:41 Gram Stain - Final Other: Please Indicate Tissue Culture - Preliminary 05/08/17 09:50 Blood Culture - Final Blood-Venous NO GROWTH AFTER 5 DAYS Gram Stain - Final TEST NOT PERFORMED Lab Studies 05/14/17 05/14/17 05/14/17 Range/Units 06:34 06:34 05:53 WBC 30.0 H (4.8-10.8) K/uL RBC 2.39 L (3.80-5.20) Mil/uL Hgb 7.8 L (11.0-16.0) g/dL Hct 23.2 L (34.0-47.0) % MCV 96.8 D (81.0-99.0) fL MCH 32.6 H (27.0-31.0) pg MCHC 33.6 (33.0-37.0) g/dL RDW 18.5 H (11.5-14.5) % Plt Count 253 (130-400) K/uL MPV 10.6 (7.2-11.7) fL Neut % (Auto) 84.2 H (50.0-75.0) % Lymph % (Auto) 10.6 L (20.0-40.0) % [place] % (Auto) 4.7 (0.0-10.0) % Eos % (Auto) 0.4 (0.0-4.0) % Baso % (Auto) 0.1 (0.0-2.0) % Neut # 25.2 H (1.8-7.0) K/uL Lymph # 3.2 (1.0-4.3) K/uL [place] # 1.4 H (0.0-0.8) K/uL Eos # 0.1 (0.0-0.7) K/uL Baso # 0.0 (0.0-0.2) K/uL Neutrophils % (Manual) (50-75) % Band Neutrophils % (0-2) % Lymphocytes % (Manual) (20-40) % Reactive Lymphs % (0-0) % Monocytes % (Manual) (0-10) % Eosinophils % (Manual) (0-4) % Metamyelocytes % (0-0) % Nucleated RBC % (0-0) % Toxic Granulation Dohle Bodies Platelet Estimate (NORMAL) Polychromasia Basophilic Stippling Anisocytosis (manual) Puncture Site pCO2 (35-45) mm/Hg pO2 (80-100) mm/Hg HCO3 (21-28) mmol/L ABG pH (7.35-7.45) ABG Total CO2 (22-28) mmol/L ABG O2 Saturation (95-98) % ABG Base Excess (-2.0-3.0) mmol/L ABG Hemoglobin (11.7-17.4) g/dL ABG Carboxyhemoglobin (0.5-1.5) % POC ABG HHb (Measured) (0.0-5.0) % ABG Methemoglobin (0.0-3.0) % Joey Test ABG Potassium (3.6-5.2) mmol/L A-a O2 Difference mm/Hg Respiratory Index Hgb O2 Saturation (95.0-98.0) % Sodium 133 (132-148) mmol/l Chloride 99 (98-107) mmol/L Glucose (65-105) mg/dl Lactate (0.7-2.1) mmol/L Vent Mode Mechanical Rate FiO2 % Tidal Volume PEEP CPAP Blood Gas Comments Crit Value Called To Crit Value Called By Crit Value Read Back Blood Gas Notified Time Potassium 3.7 (3.6-5.2) mmol/L Carbon Dioxide 18 L (22-30) mmol/L Anion Gap 20 (10-20) BUN 45 H (7-17) mg/dL Creatinine 2.0 H (0.7-1.2) mg/dL Est GFR ( Amer) 30 Est GFR (Non-Af Amer) 25 POC Glucose (mg/dL) 349 H (65-110) mg/dL Random Glucose 352 H (65-105) mg/dL Calcium 7.3 L (8.6-10.4) mg/dl Phosphorus 2.2 L (2.5-4.5) mg/dL Magnesium 2.0 (1.6-2.3) mg/dL Total Bilirubin 0.5 (0.2-1.3) mg/dL AST 43 H (14-36) U/L ALT 37 (9-52) U/L Alkaline Phosphatase 307 H (38-126) U/L Total Protein 4.1 L (6.3-8.3) g/dL Albumin 1.8 L (3.5-5.0) g/dL Globulin 2.2 (2.2-3.9) gm/dL Albumin/Globulin Ratio 0.8 L (1.0-2.1) Arterial Blood Potassium (3.6-5.2) mmol/L C. difficile Ag & Toxin (NEGATIVE) 05/14/17 05/14/17 05/13/17 Range/Units 05:51 05:11 23:37 WBC (4.8-10.8) K/uL RBC (3.80-5.20) Mil/uL Hgb (11.0-16.0) g/dL Hct (34.0-47.0) % MCV (81.0-99.0) fL MCH (27.0-31.0) pg MCHC (33.0-37.0) g/dL RDW (11.5-14.5) % Plt Count (130-400) K/uL MPV (7.2-11.7) fL Neut % (Auto) (50.0-75.0) % Lymph % (Auto) (20.0-40.0) % [place] % (Auto) (0.0-10.0) % Eos % (Auto) (0.0-4.0) % Baso % (Auto) (0.0-2.0) % Neut # (1.8-7.0) K/uL Lymph # (1.0-4.3) K/uL [place] # (0.0-0.8) K/uL Eos # (0.0-0.7) K/uL Baso # (0.0-0.2) K/uL Neutrophils % (Manual) (50-75) % Band Neutrophils % (0-2) % Lymphocytes % (Manual) (20-40) % Reactive Lymphs % (0-0) % Monocytes % (Manual) (0-10) % Eosinophils % (Manual) (0-4) % Metamyelocytes % (0-0) % Nucleated RBC % (0-0) % Toxic Granulation Dohle Bodies Platelet Estimate (NORMAL) Polychromasia Basophilic Stippling Anisocytosis (manual) Puncture Site Rr pCO2 18 L* (35-45) mm/Hg pO2 145 H (80-100) mm/Hg HCO3 14.8 L (21-28) mmol/L ABG pH 7.39 (7.35-7.45) ABG Total CO2 11.5 L (22-28) mmol/L ABG O2 Saturation 99.9 H (95-98) % ABG Base Excess -13.0 L (-2.0-3.0) mmol/L ABG Hemoglobin 5.1 L (11.7-17.4) g/dL ABG Carboxyhemoglobin 1.5 (0.5-1.5) % POC ABG HHb (Measured) 0.1 (0.0-5.0) % ABG Methemoglobin 1.1 (0.0-3.0) % Joey Test Pos ABG Potassium (3.6-5.2) mmol/L A-a O2 Difference 260.0 mm/Hg Respiratory Index 1.8 Hgb O2 Saturation 97.2 (95.0-98.0) % Sodium (132-148) mmol/l Chloride (98-107) mmol/L Glucose (65-105) mg/dl Lactate (0.7-2.1) mmol/L Vent Mode Prvc Mechanical Rate 15 FiO2 60.0 % Tidal Volume 450 PEEP 5 CPAP Blood Gas Comments Crit Value Called To Rachelle cornejo/rn Crit Value Called By Amparo reynolds/rt Crit Value Read Back Y Blood Gas Notified Time 550 Potassium (3.6-5.2) mmol/L Carbon Dioxide (22-30) mmol/L Anion Gap (10-20) BUN (7-17) mg/dL Creatinine (0.7-1.2) mg/dL Est GFR ( Amer) Est GFR (Non-Af Amer) POC Glucose (mg/dL) 412 H* 196 H (65-110) mg/dL Random Glucose (65-105) mg/dL Calcium (8.6-10.4) mg/dl Phosphorus (2.5-4.5) mg/dL Magnesium (1.6-2.3) mg/dL Total Bilirubin (0.2-1.3) mg/dL AST (14-36) U/L ALT (9-52) U/L Alkaline Phosphatase (38-126) U/L Total Protein (6.3-8.3) g/dL Albumin (3.5-5.0) g/dL Globulin (2.2-3.9) gm/dL Albumin/Globulin Ratio (1.0-2.1) Arterial Blood Potassium (3.6-5.2) mmol/L C. difficile Ag & Toxin (NEGATIVE) 05/13/17 05/13/17 05/13/17 Range/Units 18:40 14:14 12:06 WBC (4.8-10.8) K/uL RBC (3.80-5.20) Mil/uL Hgb (11.0-16.0) g/dL Hct (34.0-47.0) % MCV (81.0-99.0) fL MCH (27.0-31.0) pg MCHC (33.0-37.0) g/dL RDW (11.5-14.5) % Plt Count (130-400) K/uL MPV (7.2-11.7) fL Neut % (Auto) (50.0-75.0) % Lymph % (Auto) (20.0-40.0) % [place] % (Auto) (0.0-10.0) % Eos % (Auto) (0.0-4.0) % Baso % (Auto) (0.0-2.0) % Neut # (1.8-7.0) K/uL Lymph # (1.0-4.3) K/uL [place] # (0.0-0.8) K/uL Eos # (0.0-0.7) K/uL Baso # (0.0-0.2) K/uL Neutrophils % (Manual) (50-75) % Band Neutrophils % (0-2) % Lymphocytes % (Manual) (20-40) % Reactive Lymphs % (0-0) % Monocytes % (Manual) (0-10) % Eosinophils % (Manual) (0-4) % Metamyelocytes % (0-0) % Nucleated RBC % (0-0) % Toxic Granulation Dohle Bodies Platelet Estimate (NORMAL) Polychromasia Basophilic Stippling Anisocytosis (manual) Puncture Site Rr pCO2 25 L (35-45) mm/Hg pO2 35 L* (80-100) mm/Hg HCO3 17.0 L (21-28) mmol/L ABG pH 7.37 (7.35-7.45) ABG Total CO2 15.3 L (22-28) mmol/L ABG O2 Saturation 80.6 L (95-98) % ABG Base Excess -9.0 L (-2.0-3.0) mmol/L ABG Hemoglobin (11.7-17.4) g/dL ABG Carboxyhemoglobin (0.5-1.5) % POC ABG HHb (Measured) (0.0-5.0) % ABG Methemoglobin (0.0-3.0) % Joey Test Pos ABG Potassium 4.4 (3.6-5.2) mmol/L A-a O2 Difference 362.0 mm/Hg Respiratory Index 10.3 Hgb O2 Saturation (95.0-98.0) % Sodium 141.0 (132-148) mmol/l Chloride 108.0 H (98-107) mmol/L Glucose 342 H (65-105) mg/dl Lactate 5.3 H* (0.7-2.1) mmol/L Vent Mode Prvc Mechanical Rate 15 FiO2 60.0 % Tidal Volume 450 PEEP CPAP 5 Blood Gas Comments Venous Crit Value Called To Dr garcía Crit Value Called By Veronica calero fundraising director Crit Value Read Back Y Blood Gas Notified Time 1420 Potassium (3.6-5.2) mmol/L Carbon Dioxide (22-30) mmol/L Anion Gap (10-20) BUN (7-17) mg/dL Creatinine (0.7-1.2) mg/dL Est GFR ( Amer) Est GFR (Non-Af Amer) POC Glucose (mg/dL) 245 H 378 H (65-110) mg/dL Random Glucose (65-105) mg/dL Calcium (8.6-10.4) mg/dl Phosphorus (2.5-4.5) mg/dL Magnesium (1.6-2.3) mg/dL Total Bilirubin (0.2-1.3) mg/dL AST (14-36) U/L ALT (9-52) U/L Alkaline Phosphatase (38-126) U/L Total Protein (6.3-8.3) g/dL Albumin (3.5-5.0) g/dL Globulin (2.2-3.9) gm/dL Albumin/Globulin Ratio (1.0-2.1) Arterial Blood Potassium 4.4 (3.6-5.2) mmol/L C. difficile Ag & Toxin (NEGATIVE) 05/13/17 05/13/17 Range/Units 09:02 06:26 WBC (4.8-10.8) K/uL RBC (3.80-5.20) Mil/uL Hgb (11.0-16.0) g/dL Hct (34.0-47.0) % MCV (81.0-99.0) fL MCH (27.0-31.0) pg MCHC (33.0-37.0) g/dL RDW (11.5-14.5) % Plt Count (130-400) K/uL MPV (7.2-11.7) fL Neut % (Auto) (50.0-75.0) % Lymph % (Auto) (20.0-40.0) % [place] % (Auto) (0.0-10.0) % Eos % (Auto) (0.0-4.0) % Baso % (Auto) (0.0-2.0) % Neut # (1.8-7.0) K/uL Lymph # (1.0-4.3) K/uL [place] # (0.0-0.8) K/uL Eos # (0.0-0.7) K/uL Baso # (0.0-0.2) K/uL Neutrophils % (Manual) 55 (50-75) % Band Neutrophils % 22 H* (0-2) % Lymphocytes % (Manual) 6 L (20-40) % Reactive Lymphs % 1 H (0-0) % Monocytes % (Manual) 14 H (0-10) % Eosinophils % (Manual) 1 (0-4) % Metamyelocytes % 1 H (0-0) % Nucleated RBC % 9 H (0-0) % Toxic Granulation Present Dohle Bodies Present Platelet Estimate Normal (NORMAL) Polychromasia Slight Basophilic Stippling Slight Anisocytosis (manual) Moderate Puncture Site pCO2 (35-45) mm/Hg pO2 (80-100) mm/Hg HCO3 (21-28) mmol/L ABG pH (7.35-7.45) ABG Total CO2 (22-28) mmol/L ABG O2 Saturation (95-98) % ABG Base Excess (-2.0-3.0) mmol/L ABG Hemoglobin (11.7-17.4) g/dL ABG Carboxyhemoglobin (0.5-1.5) % POC ABG HHb (Measured) (0.0-5.0) % ABG Methemoglobin (0.0-3.0) % Joey Test ABG Potassium (3.6-5.2) mmol/L A-a O2 Difference mm/Hg Respiratory Index Hgb O2 Saturation (95.0-98.0) % Sodium (132-148) mmol/l Chloride (98-107) mmol/L Glucose (65-105) mg/dl Lactate (0.7-2.1) mmol/L Vent Mode Mechanical Rate FiO2 % Tidal Volume PEEP CPAP Blood Gas Comments Crit Value Called To Crit Value Called By Crit Value Read Back Blood Gas Notified Time Potassium (3.6-5.2) mmol/L Carbon Dioxide (22-30) mmol/L Anion Gap (10-20) BUN (7-17) mg/dL Creatinine (0.7-1.2) mg/dL Est GFR ( Amer) Est GFR (Non-Af Amer) POC Glucose (mg/dL) (65-110) mg/dL Random Glucose (65-105) mg/dL Calcium (8.6-10.4) mg/dl Phosphorus (2.5-4.5) mg/dL Magnesium (1.6-2.3) mg/dL Total Bilirubin (0.2-1.3) mg/dL AST (14-36) U/L ALT (9-52) U/L Alkaline Phosphatase (38-126) U/L Total Protein (6.3-8.3) g/dL Albumin (3.5-5.0) g/dL Globulin (2.2-3.9) gm/dL Albumin/Globulin Ratio (1.0-2.1) Arterial Blood Potassium (3.6-5.2) mmol/L C. difficile Ag & Toxin Negative (NEGATIVE) Laboratory Results - last 24 hr 05/13/17 05/13/17 05/13/17 06:26 09:02 12:06 WBC RBC Hgb Hct MCV MCH MCHC RDW Plt Count MPV Neut % (Auto) Lymph % (Auto) [place] % (Auto) Eos % (Auto) Baso % (Auto) Neut # Lymph # [place] # Eos # Baso # Neutrophils % (Manual) 55 Band Neutrophils % 22 H* Lymphocytes % (Manual) 6 L Reactive Lymphs % 1 H Monocytes % (Manual) 14 H Eosinophils % (Manual) 1 Metamyelocytes % 1 H Nucleated RBC % 9 H Toxic Granulation Present Dohle Bodies Present Platelet Estimate Normal Polychromasia Slight Basophilic Stippling Slight Anisocytosis (manual) Moderate Puncture Site pCO2 pO2 HCO3 ABG pH ABG Total CO2 ABG O2 Saturation ABG Base Excess ABG Hemoglobin ABG Carboxyhemoglobin POC ABG HHb (Measured) ABG Methemoglobin Joey Test ABG Potassium A-a O2 Difference Respiratory Index Hgb O2 Saturation Sodium Chloride Glucose Lactate Vent Mode Mechanical Rate FiO2 Tidal Volume PEEP CPAP Blood Gas Comments Crit Value Called To Crit Value Called By Crit Value Read Back Blood Gas Notified Time Potassium Carbon Dioxide Anion Gap BUN Creatinine Est GFR ( Amer) Est GFR (Non-Af Amer) POC Glucose (mg/dL) 378 H Random Glucose Calcium Phosphorus Magnesium Total Bilirubin AST ALT Alkaline Phosphatase Total Protein Albumin Globulin Albumin/Globulin Ratio Arterial Blood Potassium C. difficile Ag & Toxin Negative 05/13/17 05/13/17 05/13/17 14:14 18:40 23:37 WBC RBC Hgb Hct MCV MCH MCHC RDW Plt Count MPV Neut % (Auto) Lymph % (Auto) [place] % (Auto) Eos % (Auto) Baso % (Auto) Neut # Lymph # [place] # Eos # Baso # Neutrophils % (Manual) Band Neutrophils % Lymphocytes % (Manual) Reactive Lymphs % Monocytes % (Manual) Eosinophils % (Manual) Metamyelocytes % Nucleated RBC % Toxic Granulation Dohle Bodies Platelet Estimate Polychromasia Basophilic Stippling Anisocytosis (manual) Puncture Site Rr pCO2 25 L pO2 35 L* HCO3 17.0 L ABG pH 7.37 ABG Total CO2 15.3 L ABG O2 Saturation 80.6 L ABG Base Excess -9.0 L ABG Hemoglobin ABG Carboxyhemoglobin POC ABG HHb (Measured) ABG Methemoglobin Joey Test Pos ABG Potassium 4.4 A-a O2 Difference 362.0 Respiratory Index 10.3 Hgb O2 Saturation Sodium 141.0 Chloride 108.0 H Glucose 342 H Lactate 5.3 H* Vent Mode Prvc Mechanical Rate 15 FiO2 60.0 Tidal Volume 450 PEEP CPAP 5 Blood Gas Comments Venous Crit Value Called To Dr garcía Crit Value Called By Veronica calero fundraising director Crit Value Read Back Y Blood Gas Notified Time 1420 Potassium Carbon Dioxide Anion Gap BUN Creatinine Est GFR ( Amer) Est GFR (Non-Af Amer) POC Glucose (mg/dL) 245 H 196 H Random Glucose Calcium Phosphorus Magnesium Total Bilirubin AST ALT Alkaline Phosphatase Total Protein Albumin Globulin Albumin/Globulin Ratio Arterial Blood Potassium 4.4 C. difficile Ag & Toxin 05/14/17 05/14/17 05/14/17 05:11 05:51 05:53 WBC RBC Hgb Hct MCV MCH MCHC RDW Plt Count MPV Neut % (Auto) Lymph % (Auto) [place] % (Auto) Eos % (Auto) Baso % (Auto) Neut # Lymph # [place] # Eos # Baso # Neutrophils % (Manual) Band Neutrophils % Lymphocytes % (Manual) Reactive Lymphs % Monocytes % (Manual) Eosinophils % (Manual) Metamyelocytes % Nucleated RBC % Toxic Granulation Dohle Bodies Platelet Estimate Polychromasia Basophilic Stippling Anisocytosis (manual) Puncture Site Rr pCO2 18 L* pO2 145 H HCO3 14.8 L ABG pH 7.39 ABG Total CO2 11.5 L ABG O2 Saturation 99.9 H ABG Base Excess -13.0 L ABG Hemoglobin 5.1 L ABG Carboxyhemoglobin 1.5 POC ABG HHb (Measured) 0.1 ABG Methemoglobin 1.1 Joey Test Pos ABG Potassium A-a O2 Difference 260.0 Respiratory Index 1.8 Hgb O2 Saturation 97.2 Sodium Chloride Glucose Lactate Vent Mode Prvc Mechanical Rate 15 FiO2 60.0 Tidal Volume 450 PEEP 5 CPAP Blood Gas Comments Crit Value Called To Rachelle cornejo/rn Crit Value Called By Amparo reynolds/rt Crit Value Read Back Y Blood Gas Notified Time 550 Potassium Carbon Dioxide Anion Gap BUN Creatinine Est GFR ( Amer) Est GFR (Non-Af Amer) POC Glucose (mg/dL) 412 H* 349 H Random Glucose Calcium Phosphorus Magnesium Total Bilirubin AST ALT Alkaline Phosphatase Total Protein Albumin Globulin Albumin/Globulin Ratio Arterial Blood Potassium C. difficile Ag & Toxin 05/14/17 05/14/17 06:34 06:34 WBC 30.0 H RBC 2.39 L Hgb 7.8 L Hct 23.2 L MCV 96.8 D MCH 32.6 H MCHC 33.6 RDW 18.5 H Plt Count 253 MPV 10.6 Neut % (Auto) 84.2 H Lymph % (Auto) 10.6 L [place] % (Auto) 4.7 Eos % (Auto) 0.4 Baso % (Auto) 0.1 Neut # 25.2 H Lymph # 3.2 [place] # 1.4 H Eos # 0.1 Baso # 0.0 Neutrophils % (Manual) Band Neutrophils % Lymphocytes % (Manual) Reactive Lymphs % Monocytes % (Manual) Eosinophils % (Manual) Metamyelocytes % Nucleated RBC % Toxic Granulation Dohle Bodies Platelet Estimate Polychromasia Basophilic Stippling Anisocytosis (manual) Puncture Site pCO2 pO2 HCO3 ABG pH ABG Total CO2 ABG O2 Saturation ABG Base Excess ABG Hemoglobin ABG Carboxyhemoglobin POC ABG HHb (Measured) ABG Methemoglobin Joey Test ABG Potassium A-a O2 Difference Respiratory Index Hgb O2 Saturation Sodium 133 Chloride 99 Glucose Lactate Vent Mode Mechanical Rate FiO2 Tidal Volume PEEP CPAP Blood Gas Comments Crit Value Called To Crit Value Called By Crit Value Read Back Blood Gas Notified Time Potassium 3.7 Carbon Dioxide 18 L Anion Gap 20 BUN 45 H Creatinine 2.0 H Est GFR ( Amer) 30 Est GFR (Non-Af Amer) 25 POC Glucose (mg/dL) Random Glucose 352 H Calcium 7.3 L Phosphorus 2.2 L Magnesium 2.0 Total Bilirubin 0.5 AST 43 H ALT 37 Alkaline Phosphatase 307 H Total Protein 4.1 L Albumin 1.8 L Globulin 2.2 Albumin/Globulin Ratio 0.8 L Arterial Blood Potassium C. difficile Ag & Toxin Fingerstick Blood Sugar Results: 349 Review of Systems - Review of Systems Systems not reviewed;Unavailable: Intubated Assessment/Plan - Assessment and Plan (Free Text) Assessment: 71F with a history of dialysis, renal failure and congestive heart failure, diabetes, hypertension, peripheral vascular disease, history of left knee below- knee limitation who was brought to the ICU for sepsis. Patient with respiratory distress during dialysis on 05/13 and intubated. Plan: Neuro: Propofol drip Dilaudid 0.5 mg IVP Q6H HEENT: brimonidine 0.2% 1 ml OU TID latanoprost 0.02 ml OU timolol 1 drop OU BID Respiratory: 05/13 - Intubated (RR 15, TV 450, PEEP 5, FiO2 60) - titrate FiO2 to maintain O2 >92% CXR (05/14): Chest CT angio: Filling defects are noted at both upper lobes pulmonary arteries suggestive of pulmonary embolus. Large bilateral pleural effusion. Mild cardiomegaly. [id number] pericardial effusion. [id number] anasarca. Lower lobe atelectasis due to pleural effusion. CXR (05/08/17): worsening left pleural effusion Hem: H&H: 7.8/23.2 Plt 253 Eliquis 5mg PO daily Procrit Nephro: I - 1472.3 O - [address] Ambrose consulted, help appreciated Pt undergoes hemodialysis Tues/Thurs/Sat Ergocalcierol 1 capsule PO Q7D Procrit Fluid, Electrolytes, Diet Neutrophos BID Tube feeds Thiamine Vitamin B complex Endo: DM ISS Lantus 10units SC [facility] Hypoglycemic protocol Cardio: hx of diastolic CHF MAP >65, EF61% Midodrine 10 mg PRN Crestor 10mg PO HS ID: Sepsis WBC 30 Lactate 5.3 on 05/11 and 05/13 procal >200 (05/12) Tmax overnight: 102 wound culture showing sera tissue culture negative blood culture negative x48h Infectious Disease, Dr. Wellington consulted, help appreciated Fluconazole 200mg IVPB q24h Nystatin 1g TOP Q8 Linezolid 600 mg Q12 Cefepime 1g QD wound vac for left AKA wound - not likely the source of elevated WBC count GI AST 43 ALT 37 Prophylactic Care: GI: Protonix 40mg PO daily <Lulu Cabrera M - Last Filed: 05/17/17 11:22> CCU Objective - Vital Signs / Intake & Output Vital Signs (Last 4 hours): Vital Signs Temp Pulse Resp BP Pulse Ox 05/17/17 10:00 139 H 18 125/46 L 100 05/17/17 09:00 138 H 22 136/24 L 100 05/17/17 08:30 137 H 30 H 125/40 L 100 05/17/17 08:10 134 H 15 137/35 L 100 05/17/17 08:00 99.5 F 134 H 25 H 50/0 L 100 05/17/17 07:47 135 H 25 H 50/0 L 100 Intake and Output (Last 8hrs): Intake & Output 05/16/17 05/17/17 05/17/17 22:59 06:59 14:59 Intake Total 942.5 442.8 132.5 Output Total 100 100 Balance 842.5 342.8 132.5 Intake: IV 270 210 20 Intake, IV Amount 532.5 232.8 112.5 Right PICC 420 rt IJ extra port 112.5 232.8 112.5 Blood Product 0 Red Blood Cells Cpd As1 0 Lr Unit [id number] Other 140 Red Blood Cells Cpd As1 80 Lr Unit [id number] Output: Stool 100 100 - Medications Active Medications: Active Medications Generic Name Dose Route Start Last Admin Trade Name Freq PRN Reason Stop Dose Admin Acetaminophen 650 mg 05/13/17 09:40 05/16/17 12:23 Tylenol 650mg/20.3ml Solution Ud PO 650 mg Q6 PRN Administration Fever >100.4 F Albumin Human 12.5 gm 05/13/17 12:00 05/15/17 11:45 Albumin Human 5% (12.5 Gm/250 Ml) IV 12.5 gm MWF PRN Administration hypotension Apixaban 5 mg 05/13/17 10:00 05/15/17 19:20 Eliquis PO 5 mg BID ELINA Administration Brimonidine Tartrate 1 ml 04/12/17 10:00 05/17/17 09:54 Alphagan 0.2% Opht OU 1 applic TID ELINA Administration Collagenase 0 gm 05/12/17 11:15 05/17/17 09:54 Santyl TOP 1 applic DAILY ELINA Administration Epoetin Maxwell 10,000 unit 04/27/17 12:00 05/15/17 11:11 Procrit IV 10,000 unit MWF ELINA Administration Ergocalciferol 1 cap 04/11/17 22:30 05/16/17 22:02 Drisdol 50,000 Intl Units Cap PO 1 cap Q7D ELINA Administration Glucagon 1 mg 04/19/17 08:20 05/02/17 22:26 Glucagen Diagnostic Kit IM 1 mg STAT PRN Administration Hypoglycemia Protocol Protocol Linezolid 600 mg in 300 mls @ 200 mls/hr 05/12/17 22:00 05/17/17 09:51 Zyvox 600mg/300ml D5w IVPB 200 mls/hr Q12 ELINA Administration Propofol 1,000 mg in 100 mls @ 1.762 mls/hr 05/13/17 15:41 05/13/17 20:00 Diprivan IV 10 mcg/kg/min .Q24H PRN 3.524 mls/hr TITRATE PER MD ORDER Titration Protocol 5 MCG/KG/MIN Micafungin Sodium 100 mg/ 100 mls @ 100 mls/hr 05/14/17 20:00 05/16/17 19:44 Sodium Chloride IV 100 mls/hr Q24H ELINA Administration Norepinephrine Bitartrate 8 mg 250 mls @ 7.5 mls/hr 05/16/17 07:13 05/17/17 07:47 / Sodium Chloride IV 20 mcg/min .Q24H PRN 37.5 mls/hr TITRATE PER ORDER Administration Protocol 4 MCG/MIN Insulin Glargine 10 unit 05/14/17 22:00 05/17/17 09:52 Lantus SC Not Given [facility] ELINA Insulin Human Regular 0 unit 05/14/17 21:05 05/17/17 08:00 Novolin R SC Not Given Q4 ELINA Protocol Latanoprost 0.02 ml 04/12/17 22:00 05/16/17 21:22 Xalatan Opht OU 0.02 ml HS ELINA Administration Midodrine 10 mg 04/27/17 11:04 05/09/17 11:02 Proamatine PO 10 mg ONCE PRN Administration Diastolic blood pressure Nystatin 1 gm 05/11/17 15:51 05/17/17 07:53 Nystop Topical Powder TOP 1 applic Q8H ELINA Administration Pantoprazole Sodium 40 mg 05/17/17 10:00 05/17/17 09:50 Protonix Inj IVP 40 mg DAILY ELINA Administration Potassium Phos/Sodium Phos 1 pkt 05/13/17 09:00 05/17/17 09:55 Neutra-Phos PO 1 pkt BIDPC ELINA Administration Rosuvastatin Calcium 10 mg 04/12/17 22:00 05/16/17 21:11 Crestor PO 10 mg HS ELINA Administration Thiamine HCl 100 mg 04/11/17 22:30 05/17/17 05:30 Vitamin B1 Inj IV 100 mg Q8H ELINA Administration Timolol Maleate 1 drop 04/12/17 10:00 05/17/17 09:54 Timoptic 0.5% Ophth Soln OU 1 drop BID ELINA Administration Vitamin B Complex/Vit C/Folic Acid 1 tab 04/12/17 08:00 05/17/17 07:53 Nephro-Alonzo PO 1 tab 0800 ELINA Administration - Patient Studies Lab Studies: Microbiology Studies 05/10/17 12:41 Gram Stain - Final Other: Please Indicate Tissue Culture - Final No growth. 05/11/17 10:56 Blood Culture - Final Blood-During Dialysis NO GROWTH AFTER 5 DAYS Gram Stain - Final TEST NOT PERFORMED Lab Studies 05/17/17 05/17/17 05/17/17 Range/Units 08:20 08:02 08:00 WBC (4.8-10.8) K/uL RBC (3.80-5.20) Mil/uL Hgb (11.0-16.0) g/dL Hct (34.0-47.0) % MCV (81.0-99.0) fL MCH (27.0-31.0) pg MCHC (33.0-37.0) g/dL RDW (11.5-14.5) % Plt Count (130-400) K/uL MPV (7.2-11.7) fL Neut % (Auto) (50.0-75.0) % Lymph % (Auto) (20.0-40.0) % [place] % (Auto) (0.0-10.0) % Eos % (Auto) (0.0-4.0) % Baso % (Auto) (0.0-2.0) % Neut # (1.8-7.0) K/uL Lymph # (1.0-4.3) K/uL [place] # (0.0-0.8) K/uL Eos # (0.0-0.7) K/uL Baso # (0.0-0.2) K/uL Neutrophils % (Manual) (50-75) % Band Neutrophils % (0-2) % Lymphocytes % (Manual) (20-40) % Reactive Lymphs % (0-0) % Monocytes % (Manual) (0-10) % Metamyelocytes % (0-0) % Myelocytes % (0-0) % Nucleated RBC % (0-0) % Toxic Granulation Platelet Estimate (NORMAL) Large Platelets Polychromasia Hypochromasia (manual) Poikilocytosis (manual Anisocytosis (manual) Macrocytosis (manual) Tear Drop Cells Ovalocytes [address] Cells Sodium (132-148) mmol/L Potassium (3.6-5.2) mmol/L Chloride (98-107) mmol/L Carbon Dioxide (22-30) mmol/L Anion Gap (10-20) BUN (7-17) mg/dL Creatinine (0.7-1.2) mg/dL Est GFR ( Amer) Est GFR (Non-Af Amer) POC Glucose (mg/dL) 136 H 49 L 49 L (65-110) mg/dL Random Glucose (65-105) mg/dL Calcium (8.6-10.4) mg/dl Total Bilirubin (0.2-1.3) mg/dL AST (14-36) U/L ALT (9-52) U/L Alkaline Phosphatase (38-126) U/L Total Protein (6.3-8.3) g/dL Albumin (3.5-5.0) g/dL Globulin (2.2-3.9) gm/dL Albumin/Globulin Ratio (1.0-2.1) Blood Type Antibody Screen 05/17/17 05/17/17 05/17/17 Range/Units 06:51 06:50 03:44 WBC 52.7 H* (4.8-10.8) K/uL RBC 3.53 L (3.80-5.20) Mil/uL Hgb 10.8 L D (11.0-16.0) g/dL Hct 33.3 L (34.0-47.0) % MCV 94.4 (81.0-99.0) fL MCH 30.7 (27.0-31.0) pg MCHC 32.5 L (33.0-37.0) g/dL RDW 17.1 H (11.5-14.5) % Plt Count 347 (130-400) K/uL MPV 11.0 (7.2-11.7) fL Neut % (Auto) 82.3 H (50.0-75.0) % Lymph % (Auto) 12.6 L (20.0-40.0) % [place] % (Auto) 3.6 (0.0-10.0) % Eos % (Auto) 0.8 (0.0-4.0) % Baso % (Auto) 0.7 (0.0-2.0) % Neut # 43.4 H (1.8-7.0) K/uL Lymph # 6.6 H (1.0-4.3) K/uL [place] # 1.9 H (0.0-0.8) K/uL Eos # 0.4 (0.0-0.7) K/uL Baso # 0.4 H (0.0-0.2) K/uL Neutrophils % (Manual) 74 (50-75) % Band Neutrophils % 4 H (0-2) % Lymphocytes % (Manual) 12 L (20-40) % Reactive Lymphs % 2 H (0-0) % Monocytes % (Manual) 6 (0-10) % Metamyelocytes % 1 H (0-0) % Myelocytes % 1 H (0-0) % Nucleated RBC % 6 H (0-0) % Toxic Granulation Present Platelet Estimate Normal (NORMAL) Large Platelets Present Polychromasia Slight Hypochromasia (manual) Slight Poikilocytosis (manual Slight Anisocytosis (manual) Slight Macrocytosis (manual) Slight Tear Drop Cells Slight Ovalocytes Slight Karen Cells Slight Sodium 137 (132-148) mmol/L Potassium 5.1 (3.6-5.2) mmol/L Chloride 104 (98-107) mmol/L Carbon Dioxide 11 L* D (22-30) mmol/L Anion Gap 27 H (10-20) BUN 48 H (7-17) mg/dL Creatinine 2.4 H (0.7-1.2) mg/dL Est GFR ( Amer) 24 Est GFR (Non-Af Amer) 20 POC Glucose (mg/dL) 142 H (65-110) mg/dL Random Glucose 55 L (65-105) mg/dL Calcium 7.1 L (8.6-10.4) mg/dl Total Bilirubin 1.0 (0.2-1.3) mg/dL AST 3558 H (14-36) U/L ALT 510 H D (9-52) U/L Alkaline Phosphatase 252 H (38-126) U/L Total Protein 4.2 L (6.3-8.3) g/dL Albumin 2.1 L (3.5-5.0) g/dL Globulin 2.2 (2.2-3.9) gm/dL Albumin/Globulin Ratio 0.9 L (1.0-2.1) Blood Type Antibody Screen 1205/16/17 05/16/17 Range/Units 23:53 19:56 16:32 WBC (4.8-10.8) K/uL RBC (3.80-5.20) Mil/uL Hgb (11.0-16.0) g/dL Hct (34.0-47.0) % MCV (81.0-99.0) fL MCH (27.0-31.0) pg MCHC (33.0-37.0) g/dL RDW (11.5-14.5) % Plt Count (130-400) K/uL MPV (7.2-11.7) fL Neut % (Auto) (50.0-75.0) % Lymph % (Auto) (20.0-40.0) % [place] % (Auto) (0.0-10.0) % Eos % (Auto) (0.0-4.0) % Baso % (Auto) (0.0-2.0) % Neut # (1.8-7.0) K/uL Lymph # (1.0-4.3) K/uL [place] # (0.0-0.8) K/uL Eos # (0.0-0.7) K/uL Baso # (0.0-0.2) K/uL Neutrophils % (Manual) (50-75) % Band Neutrophils % (0-2) % Lymphocytes % (Manual) (20-40) % Reactive Lymphs % (0-0) % Monocytes % (Manual) (0-10) % Metamyelocytes % (0-0) % Myelocytes % (0-0) % Nucleated RBC % (0-0) % Toxic Granulation Platelet Estimate (NORMAL) Large Platelets Polychromasia Hypochromasia (manual) Poikilocytosis (manual Anisocytosis (manual) Macrocytosis (manual) Tear Drop Cells Ovalocytes Karen Cells Sodium (132-148) mmol/L Potassium (3.6-5.2) mmol/L Chloride (98-107) mmol/L Carbon Dioxide (22-30) mmol/L Anion Gap (10-20) BUN (7-17) mg/dL Creatinine (0.7-1.2) mg/dL Est GFR ( Amer) Est GFR (Non-Af Amer) POC Glucose (mg/dL) 212 H 215 H 297 H (65-110) mg/dL Random Glucose (65-105) mg/dL Calcium (8.6-10.4) mg/dl Total Bilirubin (0.2-1.3) mg/dL AST (14-36) U/L ALT (9-52) U/L Alkaline Phosphatase (38-126) U/L Total Protein (6.3-8.3) g/dL Albumin (3.5-5.0) g/dL Globulin (2.2-3.9) gm/dL Albumin/Globulin Ratio (1.0-2.1) Blood Type Antibody Screen 05/16/17 05/16/17 Range/Units 11:36 00:30 WBC (4.8-10.8) K/uL RBC (3.80-5.20) Mil/uL Hgb (11.0-16.0) g/dL Hct (34.0-47.0) % MCV (81.0-99.0) fL MCH (27.0-31.0) pg MCHC (33.0-37.0) g/dL RDW (11.5-14.5) % Plt Count (130-400) K/uL MPV (7.2-11.7) fL Neut % (Auto) (50.0-75.0) % Lymph % (Auto) (20.0-40.0) % [place] % (Auto) (0.0-10.0) % Eos % (Auto) (0.0-4.0) % Baso % (Auto) (0.0-2.0) % Neut # (1.8-7.0) K/uL Lymph # (1.0-4.3) K/uL [place] # (0.0-0.8) K/uL Eos # (0.0-0.7) K/uL Baso # (0.0-0.2) K/uL Neutrophils % (Manual) (50-75) % Band Neutrophils % (0-2) % Lymphocytes % (Manual) (20-40) % Reactive Lymphs % (0-0) % Monocytes % (Manual) (0-10) % Metamyelocytes % (0-0) % Myelocytes % (0-0) % Nucleated RBC % (0-0) % Toxic Granulation Platelet Estimate (NORMAL) Large Platelets Polychromasia Hypochromasia (manual) Poikilocytosis (manual Anisocytosis (manual) Macrocytosis (manual) Tear Drop Cells Ovalocytes [place] Cells Sodium (132-148) mmol/L Potassium (3.6-5.2) mmol/L Chloride (98-107) mmol/L Carbon Dioxide (22-30) mmol/L Anion Gap (10-20) BUN (7-17) mg/dL Creatinine (0.7-1.2) mg/dL Est GFR ( Amer) Est GFR (Non-Af Amer) POC Glucose (mg/dL) 288 H (65-110) mg/dL Random Glucose (65-105) mg/dL Calcium (8.6-10.4) mg/dl Total Bilirubin (0.2-1.3) mg/dL AST (14-36) U/L ALT (9-52) U/L Alkaline Phosphatase (38-126) U/L Total Protein (6.3-8.3) g/dL Albumin (3.5-5.0) g/dL Globulin (2.2-3.9) gm/dL Albumin/Globulin Ratio (1.0-2.1) Blood Type B POSITIVE Antibody Screen Negative Laboratory Results - last 24 hr 05/16/17 05/16/17 05/16/17 00:30 11:36 16:32 WBC RBC Hgb Hct MCV MCH MCHC RDW Plt Count MPV Neut % (Auto) Lymph % (Auto) [place] % (Auto) Eos % (Auto) Baso % (Auto) Neut # Lymph # [place] # Eos # Baso # Neutrophils % (Manual) Band Neutrophils % Lymphocytes % (Manual) Reactive Lymphs % Monocytes % (Manual) Metamyelocytes % Myelocytes % Nucleated RBC % Toxic Granulation Platelet Estimate Large Platelets Polychromasia Hypochromasia (manual) Poikilocytosis (manual Anisocytosis (manual) Macrocytosis (manual) Tear Drop Cells Ovalocytes [address] Cells Sodium Potassium Chloride Carbon Dioxide Anion Gap BUN Creatinine Est GFR ( Amer) Est GFR (Non-Af Amer) POC Glucose (mg/dL) 288 H 297 H Random Glucose Calcium Total Bilirubin AST ALT Alkaline Phosphatase Total Protein Albumin Globulin Albumin/Globulin Ratio Blood Type B POSITIVE Antibody Screen Negative 05/16/17 05/16/17 05/17/17 19:56 23:53 03:44 WBC RBC Hgb Hct MCV MCH MCHC RDW Plt Count MPV Neut % (Auto) Lymph % (Auto) [place] % (Auto) Eos % (Auto) Baso % (Auto) Neut # Lymph # [place] # Eos # Baso # Neutrophils % (Manual) Band Neutrophils % Lymphocytes % (Manual) Reactive Lymphs % Monocytes % (Manual) Metamyelocytes % Myelocytes % Nucleated RBC % Toxic Granulation Platelet Estimate Large Platelets Polychromasia Hypochromasia (manual) Poikilocytosis (manual Anisocytosis (manual) Macrocytosis (manual) Tear Drop Cells Ovalocytes [place] Cells Sodium Potassium Chloride Carbon Dioxide Anion Gap BUN Creatinine Est GFR ( Amer) Est GFR (Non-Af Amer) POC Glucose (mg/dL) 215 H 212 H 142 H Random Glucose Calcium Total Bilirubin AST ALT Alkaline Phosphatase Total Protein Albumin Globulin Albumin/Globulin Ratio Blood Type Antibody Screen 05/17/17 05/17/17 05/17/17 06:50 06:51 08:00 WBC 52.7 H* RBC 3.53 L Hgb 10.8 L D Hct 33.3 L MCV 94.4 MCH 30.7 MCHC 32.5 L RDW 17.1 H Plt Count 347 MPV 11.0 Neut % (Auto) 82.3 H Lymph % (Auto) 12.6 L [place] % (Auto) 3.6 Eos % (Auto) 0.8 Baso % (Auto) 0.7 Neut # 43.4 H Lymph # 6.6 H [place] # 1.9 H Eos # 0.4 Baso # 0.4 H Neutrophils % (Manual) 74 Band Neutrophils % 4 H Lymphocytes % (Manual) 12 L Reactive Lymphs % 2 H Monocytes % (Manual) 6 Metamyelocytes % 1 H Myelocytes % 1 H Nucleated RBC % 6 H Toxic Granulation Present Platelet Estimate Normal Large Platelets Present Polychromasia Slight Hypochromasia (manual) Slight Poikilocytosis (manual Slight Anisocytosis (manual) Slight Macrocytosis (manual) Slight Tear Drop Cells Slight Ovalocytes Slight [address] Cells Slight Sodium 137 Potassium 5.1 Chloride 104 Carbon Dioxide 11 L* D Anion Gap 27 H BUN 48 H Creatinine 2.4 H Est GFR ( Amer) 24 Est GFR (Non-Af Amer) 20 POC Glucose (mg/dL) 49 L Random Glucose 55 L Calcium 7.1 L Total Bilirubin 1.0 AST 3558 H ALT 510 H D Alkaline Phosphatase 252 H Total Protein 4.2 L Albumin 2.1 L Globulin 2.2 Albumin/Globulin Ratio 0.9 L Blood Type Antibody Screen 05/17/17 05/17/17 08:02 08:20 WBC RBC Hgb Hct MCV MCH MCHC RDW Plt Count MPV Neut % (Auto) Lymph % (Auto) [place] % (Auto) Eos % (Auto) Baso % (Auto) Neut # Lymph # [place] # Eos # Baso # Neutrophils % (Manual) Band Neutrophils % Lymphocytes % (Manual) Reactive Lymphs % Monocytes % (Manual) Metamyelocytes % Myelocytes % Nucleated RBC % Toxic Granulation Platelet Estimate Large Platelets Polychromasia Hypochromasia (manual) Poikilocytosis (manual Anisocytosis (manual) Macrocytosis (manual) Tear Drop Cells Ovalocytes [place] Cells Sodium Potassium Chloride Carbon Dioxide Anion Gap BUN Creatinine Est GFR ( Amer) Est GFR (Non-Af Amer) POC Glucose (mg/dL) 49 L 136 H Random Glucose Calcium Total Bilirubin AST ALT Alkaline Phosphatase Total Protein Albumin Globulin Albumin/Globulin Ratio Blood Type Antibody Screen Assessment/Plan - Assessment and Plan (Free Text) Plan: Above resident note reviewed and verified. 71 y/o female with left lower leg wound infection admitted to ICU for sepsis -intubated for airway protection -continue abx -f/u serial lactic - Date & Time Date: 05/17/17 Time: 11:22
--- NOTE | 2017-05-14 08:42 | RAD ---
PROCEDURE: CHEST RADIOGRAPH, 1 VIEW HISTORY: vent COMPARISON: 05/13/2017 FINDINGS: The endotracheal tube terminates 2.8 cm proximal to the chin[place]. The right PICC line terminates in the SVC. LUNGS: The right lung is well inflated and clear. There is no change in left lower lobe consolidation and moderate left pleural effusion. No pneumothorax. CARDIOVASCULAR: Normal. OSSEOUS STRUCTURES: No significant abnormalities. VISUALIZED UPPER ABDOMEN: Normal. OTHER FINDINGS: None. IMPRESSION: No change in left lower lobe consolidation and moderate left pleural effusion. Stable position of endotracheal tube and right PICC line.
[2017-05-14] MEDS: Multivitamin Vitamin B Complex (Nephro-Vite) Tab PO SCH (08:50)
[2017-05-14] MEDS: Potassium & Sodium Phosphate PO SCH ×2 (08:50→18:00)
[2017-05-14] MEDS: Fluconazole IV 200mg/100 ml NS 100 ML IVPB SCH (08:50)
[2017-05-14] MEDS: Nystatin 100,000 Units/gm Topical Pow(15 gm) TOP SCH ×2 (08:51→17:23)
[2017-05-14] MEDS: Pantoprazole 40 mg Susp UD PO SCH (10:00)
[2017-05-14] MEDS: Brimonidine 0.2% Opth Sol (5ml) OU SCH ×3 (10:00→17:21)
[2017-05-14] MEDS: Cefepime IV 1 gm in Dextrose 1 GM/50 ML BAG IVPB SCH (10:00)
[2017-05-14] MEDS: Linezolid 600 mg in D5W 300 ml 600 MG/300 ML BAG IVPB SCH ×2 (10:30→22:35)
[2017-05-14] MEDS: Collagenase 250 Units/gm Ointment(30 gm) TOP SCH (11:18)
--- NOTE | 2017-05-14 13:37 | PN ---
LOCATION: ICU 5. SUBJECTIVE: This 71 years old female seen and examined in rounds early today, sedated, tolerating PEG feeding well with loose bowel movement. The patient is incontinent of fecal material and Flexi-Seal is in place. Most recent lab results showed leukocytosis of 30 with hemoglobin drop 7.8, hematocrit 23.2 with normal platelet count and abnormal EGD with increased blood glucose level to 264, lactic acid elevated to 5.3 with low calcium 7.3, low phosphorus 2.2 with albumin 1.8, low total protein 4.1. The patient will need IV albumin. Today's chest x-ray showed left lower lobe pneumonia with moderate left pleural effusion. The patient is still intubated. PHYSICAL EXAMINATION: GENERAL: A 71 years old female, intubated, sedated. VITAL SIGNS: Low-grade temperature of 102, rate of 98 with blood pressure of 114/58. HEENT: Showed pale dry oral mucous membrane. Nonicteric sclerae. LUNGS: Few scattered crepitation. Decreased air entry at bases, especially left side. HEART: Positive S1 and S2 with increased rate. ABDOMEN: PEG tube is in place without evidence of anterior abdominal wall cellulitis. IMPRESSION: 1. Failure to thrive. 2. Malnutrition and hypoalbuminemia. 3. Status post percutaneous endoscopic gastrostomy insertion. 4. Pneumonia, respiratory failure. The patient is intubated to ventilator. 5. Septicemia, most likely secondary to above. 6. Anemia, most likely secondary to chronic disease. 7. Metabolic acidosis, increased lactic acid level that could be secondary to infectious process, dehydration. 8. Known history of chronic renal failure, on hemodialysis. 9. Electrolyte imbalance. SUGGESTION: 1. Continue current management. 2. Albumin IV. 3. Subsequent increase of rate of feeding as tolerated. Karena Arias MD
[2017-05-14] MEDS: Micafungin 100 MG in Sodium Chloride 0.9% 100 ML IV SCH (21:00)
[2017-05-14] MEDS: (Lantus) Insulin Glargine, Recombinant SC SCH (21:15)
[2017-05-14] MEDS: Acetaminophen 650mg/20.3ml solution UD PO PRN (21:15)
[2017-05-14] MEDS: Latanoprost 2.5 ml Opht Soln OU SCH (21:30)
[2017-05-15] MEDS: (Novolin R) Insulin Human Regular 100 units/ml vial SC SCH ×6 (00:05→20:24)
[2017-05-15] MEDS: Nystatin 100,000 Units/gm Topical Pow(15 gm) TOP SCH ×3 (00:10→16:00)
[2017-05-15] MEDS: Thiamine 100 mg/ml Inj IV SCH ×3 (05:35→22:26)
[2017-05-15 05:39] LABS: ABG ALLEN TEST POS; ABG MECHANICAL RATE 15; ARTERIAL BLOOD GAS MODE PRVC; ATERIAL BLOOD GAS PEEP 5; DRAW SITE RR
[2017-05-15 06:43] LABS: BASO # 0.1 K/uL (0.0-0.2); BASO % 0.2 % (0.0-2.0); EOS # 0.5 K/uL (0.0-0.7); EOS % 1.8 % (0.0-4.0); HEMATOCRIT 24.8 % (34.0-47.0); LYMPH # 2.5 K/uL (1.0-4.3); LYMPH % 8.9 % (20.0-40.0); MEAN CELL VOLUME 95.8 fL (81.0-99.0); MEAN CORPUSCULAR HEMOGLOBIN 31.8 pg (27.0-31.0); MEAN CORPUSCULAR HGB CONC 33.2 g/dL (33.0-37.0); MEAN PLATELET VOLUME 10.5 fL (7.2-11.7); MONO % 3.7 % (0.0-10.0); NRBC % 3.1 % (0.0-2.0); PLATELET COUNT 341 K/uL (130-400); RED CELL DISTRIBUTION WIDTH 17.9 % (11.5-14.5); WHITE BLOOD COUNT 28.5 K/uL (4.8-10.8)
[2017-05-15 07:15] LABS: ALB/GLOB RATIO 0.8 (1.0-2.1); BILIRUBIN,TOTAL 0.4 mg/dL (0.2-1.3); CALCIUM 7.2 mg/dl (8.6-10.4); PHOSPHOROUS 1.4 mg/dL (2.5-4.5); POTASSIUM 2.4 mmol/L (3.6-5.2); TOTAL PROTEIN 4.2 g/dL (6.3-8.3)
[2017-05-15 08:41] LABS: EOSINOPHIL 4 % (0-4); NEUTROPHIL 82 % (50-75); NUCLEATED RED BLOOD CELL 3 % (0-0); TOTAL CELLS COUNTED 100
--- NOTE | 2017-05-15 09:12 | CP.CCUPN ---
<Poonam Vick - Last Filed: 05/15/17 13:50> CCU Subjective - Physician Review Subjective (Free Text): 05/15/17 08:40 Patient seen and examined at bedside. No acute events overnight. Patient intubated. ROS unattainable. CCU Objective - Vital Signs / Intake & Output Vital Signs (Last 4 hours): Vital Signs Pulse Resp BP Pulse Ox 05/15/17 07:01 88 18 139/53 L 100 05/15/17 06:01 89 15 136/62 100 05/15/17 05:01 90 17 127/50 L 100 Intake and Output (Last 8hrs): Intake & Output 05/14/17 05/15/17 05/15/17 22:59 06:59 14:59 Intake Total 829.2 690 60 Output Total 0 400 Balance 829.2 290 60 Weight 120 lb 9.486 oz Intake: Intake, IV Amount 254.2 150 Right PICC 250 150 Right PICC #2 4.2 Oral 160 60 Tube Feeding 415 480 60 Output: Stool 400 Emesis 0 Other: # Voids Urine, Voided 0 - Physical Exam Head: Positive for: Atraumatic Pupils: Positive for: PERRL Extroacular Muscles: Positive for: EOMI Mouth: Positive for: Moist Mucous Membranes Respiratory/Chest: Positive for: Clear to Auscultation, Good Air Exchange, Other (intubated ). Negative for: Respiratory Distress, Accessory Muscle Use, Wheezes, Rales, Rhonchi Cardiovascular: Positive for: Regular Rate and Rhythm Abdomen: Positive for: Feeding Tubes. Negative for: Tenderness, Distention Upper Extremity: Positive for: Edema Lower Extremity: Positive for: Edema, Other (s/p left AKA, wound of surgical site with wound vac ) Neurological: Positive for: Other (Intubated and sedated ) Skin: Positive for: Warm, Dry Psychiatric: Positive for: Alert - Medications Active Medications: Active Medications Generic Name Dose Route Start Last Admin Trade Name Freq PRN Reason Stop Dose Admin Acetaminophen 650 mg 05/13/17 09:40 05/14/17 21:15 Tylenol 650mg/20.3ml Solution Ud PO 650 mg Q6 PRN Administration Fever >100.4 F Albumin Human 12.5 gm 05/13/17 12:00 05/13/17 12:01 Albumin Human 5% (12.5 Gm/250 Ml) IV 12.5 gm MWF PRN Administration hypotension Apixaban 5 mg 05/13/17 10:00 05/14/17 17:22 Eliquis PO 5 mg BID ELINA Administration Brimonidine Tartrate 1 ml 04/12/17 10:00 05/14/17 17:21 Alphagan 0.2% Opht OU 1 applic TID ELINA Administration Collagenase 0 gm 05/12/17 11:15 05/14/17 11:18 Santyl TOP Not Given DAILY [facility] Epoetin Maxwell 10,000 unit 04/27/17 12:00 05/13/17 13:31 Procrit IV 10,000 unit MWF [facility] Administration Ergocalciferol 1 cap 04/11/17 22:30 05/09/17 21:48 Drisdol 50,000 Intl Units Cap PO 1 cap Q7D ELINA Administration Glucagon 1 mg 04/19/17 08:20 12 22:26 Glucagen Diagnostic Kit IM 1 mg STAT PRN Administration Hypoglycemia Protocol Protocol Hydromorphone HCl 0.5 mg 05/13/17 08:45 Dilaudid IVP Q6H PRN Pain, severe (8-10) Cefepime HCl 1 gm in 50 mls @ 100 mls/hr 05/12/17 10:45 05/14/17 10:00 Maxipime Iv 1 Gm Premix IVPB 100 mls/hr Q24H ELINA Administration Linezolid 600 mg in 300 mls @ 200 mls/hr 05/12/17 22:00 05/14/17 22:35 Zyvox 600mg/300ml D5w IVPB 200 mls/hr Q12 ELINA Administration Norepinephrine Bitartrate 8 mg 250 mls @ 7.5 mls/hr 05/13/17 12:20 05/13/17 20:00 / Dextrose IV 0 mcg/min .Q24H PRN 0 mls/hr TITRATE PER MD ORDER Titration Protocol 4 MCG/MIN Propofol 1,000 mg in 100 mls @ 1.762 mls/hr 05/13/17 15:41 05/13/17 20:00 Diprivan IV 10 mcg/kg/min .Q24H PRN 3.524 mls/hr TITRATE PER MD ORDER Titration Protocol 5 MCG/KG/MIN Micafungin Sodium 100 mg/ 100 mls @ 100 mls/hr 05/14/17 20:00 05/14/17 21:00 Sodium Chloride IV 100 mls/hr Q24H ELINA Administration Insulin Glargine 10 unit 05/14/17 22:00 05/14/17 21:15 Lantus SC 10 u AMHS ELINA Administration Insulin Human Regular 0 unit 05/14/17 21:05 05/15/17 04:15 Novolin R SC 3 unit Q4 ELINA Administration Protocol Latanoprost 0.02 ml 04/12/17 22:00 05/14/17 21:30 Xalatan Opht OU 0.02 ml HS ELINA Administration Midodrine 10 mg 04/27/17 11:04 05/09/17 11:02 Proamatine PO 10 mg ONCE PRN Administration Diastolic blood pressure Nystatin 1 gm 05/11/17 15:51 05/15/17 00:10 Nystop Topical Powder TOP 1 applic Q8H ELINA Administration Pantoprazole Sodium 40 mg 04/18/17 10:00 05/14/17 10:00 Protonix Susp PO 40 mg DAILY ELINA Administration Potassium Phos/Sodium Phos 1 pkt 05/13/17 09:00 05/14/17 18:00 Neutra-Phos PO 1 pkt BIDPC ELINA Administration Rosuvastatin Calcium 10 mg 04/12/17 22:00 05/14/17 21:15 Crestor PO 10 mg HS ELINA Administration Thiamine HCl 100 mg 04/11/17 22:30 05/15/17 05:35 Vitamin B1 Inj IV 100 mg Q8H ELINA Administration Timolol Maleate 1 drop 04/12/17 10:00 05/14/17 17:18 Timoptic 0.5% Ophth Soln OU 1 drop BID ELINA Administration Vitamin B Complex/Vit C/Folic Acid 1 tab 04/12/17 08:00 05/14/17 08:50 Nephro-Alonzo PO 1 tab 0800 ELINA Administration - Patient Studies Lab Studies: Microbiology Studies 05/11/17 10:56 Blood Culture - Preliminary Blood-During Dialysis NO GROWTH AFTER 3 DAYS 05/10/17 12:41 Gram Stain - Final Other: Please Indicate Tissue Culture - Preliminary No growth. Lab Studies 05/15/17 05/15/17 05/15/17 Range/Units 07:52 06:28 06:28 WBC 28.5 H (4.8-10.8) K/uL RBC 2.59 L (3.80-5.20) Mil/uL Hgb 8.2 L (11.0-16.0) g/dL Hct 24.8 L (34.0-47.0) % MCV 95.8 (81.0-99.0) fL MCH 31.8 H (27.0-31.0) pg MCHC 33.2 (33.0-37.0) g/dL RDW 17.9 H (11.5-14.5) % Plt Count 341 (130-400) K/uL MPV 10.5 (7.2-11.7) fL Neut % (Auto) 85.4 H (50.0-75.0) % Lymph % (Auto) 8.9 L (20.0-40.0) % [place] % (Auto) 3.7 (0.0-10.0) % Eos % (Auto) 1.8 (0.0-4.0) % Baso % (Auto) 0.2 (0.0-2.0) % Neut # 24.3 H (1.8-7.0) K/uL Lymph # 2.5 (1.0-4.3) K/uL [place] # 1.0 H (0.0-0.8) K/uL Eos # 0.5 (0.0-0.7) K/uL Baso # 0.1 (0.0-0.2) K/uL Puncture Site pCO2 (35-45) mm/Hg pO2 (80-100) mm/Hg HCO3 (21-28) mmol/L ABG pH (7.35-7.45) ABG Total CO2 (22-28) mmol/L ABG O2 Saturation (95-98) % ABG Base Excess (-2.0-3.0) mmol/L Joey Test ABG Potassium (3.6-5.2) mmol/L A-a O2 Difference mm/Hg Respiratory Index Sodium 134 (132-148) mmol/l Chloride 100 (98-107) mmol/L Glucose (65-105) mg/dl Lactate (0.7-2.1) mmol/L Vent Mode Mechanical Rate FiO2 % Tidal Volume PEEP Crit Value Called To Crit Value Called By Crit Value Read Back Blood Gas Notified Time Potassium 2.4 L* D (3.6-5.2) mmol/L Carbon Dioxide 25 (22-30) mmol/L Anion Gap 11 (10-20) BUN 50 H (7-17) mg/dL Creatinine 2.1 H (0.7-1.2) mg/dL Est GFR ( Amer) 28 Est GFR (Non-Af Amer) 23 POC Glucose (mg/dL) 216 H (65-110) mg/dL Random Glucose 215 H (65-105) mg/dL Lactic Acid (0.7-2.1) mmol/L Calcium 7.2 L (8.6-10.4) mg/dl Phosphorus 1.4 L (2.5-4.5) mg/dL Magnesium 2.0 (1.6-2.3) mg/dL Total Bilirubin 0.4 (0.2-1.3) mg/dL AST 26 (14-36) U/L ALT 29 (9-52) U/L Alkaline Phosphatase 380 H D (38-126) U/L Total Protein 4.2 L (6.3-8.3) g/dL Albumin 1.8 L (3.5-5.0) g/dL Globulin 2.4 (2.2-3.9) gm/dL Albumin/Globulin Ratio 0.8 L (1.0-2.1) Arterial Blood Potassium (3.6-5.2) mmol/L 05/15/17 05/15/17 05/14/17 Range/Units 05:14 04:04 23:53 WBC (4.8-10.8) K/uL RBC (3.80-5.20) Mil/uL Hgb (11.0-16.0) g/dL Hct (34.0-47.0) % MCV (81.0-99.0) fL MCH (27.0-31.0) pg MCHC (33.0-37.0) g/dL RDW (11.5-14.5) % Plt Count (130-400) K/uL MPV (7.2-11.7) fL Neut % (Auto) (50.0-75.0) % Lymph % (Auto) (20.0-40.0) % [place] % (Auto) (0.0-10.0) % Eos % (Auto) (0.0-4.0) % Baso % (Auto) (0.0-2.0) % Neut # (1.8-7.0) K/uL Lymph # (1.0-4.3) K/uL [place] # (0.0-0.8) K/uL Eos # (0.0-0.7) K/uL Baso # (0.0-0.2) K/uL Puncture Site Rr pCO2 33 L (35-45) mm/Hg pO2 187 H (80-100) mm/Hg HCO3 24.7 (21-28) mmol/L ABG pH 7.45 (7.35-7.45) ABG Total CO2 23.9 (22-28) mmol/L ABG O2 Saturation 100.3 H (95-98) % ABG Base Excess -0.4 (-2.0-3.0) mmol/L Joey Test Pos ABG Potassium 2.5 L* (3.6-5.2) mmol/L A-a O2 Difference 57.0 mm/Hg Respiratory Index 0.3 Sodium 141.0 (132-148) mmol/l Chloride 108.0 H (98-107) mmol/L Glucose 221 H (65-105) mg/dl Lactate 3.0 H (0.7-2.1) mmol/L Vent Mode Prvc Mechanical Rate 15 FiO2 40.0 % Tidal Volume 450 PEEP 5 Crit Value Called To Rachelle cornejo/rn Crit Value Called By Chi vick/rt Crit Value Read Back Y Blood Gas Notified Time 540 Potassium (3.6-5.2) mmol/L Carbon Dioxide (22-30) mmol/L Anion Gap (10-20) BUN (7-17) mg/dL Creatinine (0.7-1.2) mg/dL Est GFR ( Amer) Est GFR (Non-Af Amer) POC Glucose (mg/dL) 238 H 297 H (65-110) mg/dL Random Glucose (65-105) mg/dL Lactic Acid (0.7-2.1) mmol/L Calcium (8.6-10.4) mg/dl Phosphorus (2.5-4.5) mg/dL Magnesium (1.6-2.3) mg/dL Total Bilirubin (0.2-1.3) mg/dL AST (14-36) U/L ALT (9-52) U/L Alkaline Phosphatase (38-126) U/L Total Protein (6.3-8.3) g/dL Albumin (3.5-5.0) g/dL Globulin (2.2-3.9) gm/dL Albumin/Globulin Ratio (1.0-2.1) Arterial Blood Potassium 2.5 L* (3.6-5.2) mmol/L 05/14/17 05/14/17 05/14/17 Range/Units 19:35 16:14 12:10 WBC (4.8-10.8) K/uL RBC (3.80-5.20) Mil/uL Hgb (11.0-16.0) g/dL Hct (34.0-47.0) % MCV (81.0-99.0) fL MCH (27.0-31.0) pg MCHC (33.0-37.0) g/dL RDW (11.5-14.5) % Plt Count (130-400) K/uL MPV (7.2-11.7) fL Neut % (Auto) (50.0-75.0) % Lymph % (Auto) (20.0-40.0) % [place] % (Auto) (0.0-10.0) % Eos % (Auto) (0.0-4.0) % Baso % (Auto) (0.0-2.0) % Neut # (1.8-7.0) K/uL Lymph # (1.0-4.3) K/uL [place] # (0.0-0.8) K/uL Eos # (0.0-0.7) K/uL Baso # (0.0-0.2) K/uL Puncture Site pCO2 (35-45) mm/Hg pO2 (80-100) mm/Hg HCO3 (21-28) mmol/L ABG pH (7.35-7.45) ABG Total CO2 (22-28) mmol/L ABG O2 Saturation (95-98) % ABG Base Excess (-2.0-3.0) mmol/L Joey Test ABG Potassium (3.6-5.2) mmol/L A-a O2 Difference mm/Hg Respiratory Index Sodium (132-148) mmol/l Chloride (98-107) mmol/L Glucose (65-105) mg/dl Lactate (0.7-2.1) mmol/L Vent Mode Mechanical Rate FiO2 % Tidal Volume PEEP Crit Value Called To Crit Value Called By Crit Value Read Back Blood Gas Notified Time Potassium (3.6-5.2) mmol/L Carbon Dioxide (22-30) mmol/L Anion Gap (10-20) BUN (7-17) mg/dL Creatinine (0.7-1.2) mg/dL Est GFR ( Amer) Est GFR (Non-Af Amer) POC Glucose (mg/dL) 228 H 247 H 264 H (65-110) mg/dL Random Glucose (65-105) mg/dL Lactic Acid (0.7-2.1) mmol/L Calcium (8.6-10.4) mg/dl Phosphorus (2.5-4.5) mg/dL Magnesium (1.6-2.3) mg/dL Total Bilirubin (0.2-1.3) mg/dL AST (14-36) U/L ALT (9-52) U/L Alkaline Phosphatase (38-126) U/L Total Protein (6.3-8.3) g/dL Albumin (3.5-5.0) g/dL Globulin (2.2-3.9) gm/dL Albumin/Globulin Ratio (1.0-2.1) Arterial Blood Potassium (3.6-5.2) mmol/L 05/14/17 Range/Units 11:42 WBC (4.8-10.8) K/uL RBC (3.80-5.20) Mil/uL Hgb (11.0-16.0) g/dL Hct (34.0-47.0) % MCV (81.0-99.0) fL MCH (27.0-31.0) pg MCHC (33.0-37.0) g/dL RDW (11.5-14.5) % Plt Count (130-400) K/uL MPV (7.2-11.7) fL Neut % (Auto) (50.0-75.0) % Lymph % (Auto) (20.0-40.0) % [place] % (Auto) (0.0-10.0) % Eos % (Auto) (0.0-4.0) % Baso % (Auto) (0.0-2.0) % Neut # (1.8-7.0) K/uL Lymph # (1.0-4.3) K/uL [place] # (0.0-0.8) K/uL Eos # (0.0-0.7) K/uL Baso # (0.0-0.2) K/uL Puncture Site pCO2 (35-45) mm/Hg pO2 (80-100) mm/Hg HCO3 (21-28) mmol/L ABG pH (7.35-7.45) ABG Total CO2 (22-28) mmol/L ABG O2 Saturation (95-98) % ABG Base Excess (-2.0-3.0) mmol/L Joey Test ABG Potassium (3.6-5.2) mmol/L A-a O2 Difference mm/Hg Respiratory Index Sodium (132-148) mmol/l Chloride (98-107) mmol/L Glucose (65-105) mg/dl Lactate (0.7-2.1) mmol/L Vent Mode Mechanical Rate FiO2 % Tidal Volume PEEP Crit Value Called To Crit Value Called By Crit Value Read Back Blood Gas Notified Time Potassium (3.6-5.2) mmol/L Carbon Dioxide (22-30) mmol/L Anion Gap (10-20) BUN (7-17) mg/dL Creatinine (0.7-1.2) mg/dL Est GFR ( Amer) Est GFR (Non-Af Amer) POC Glucose (mg/dL) (65-110) mg/dL Random Glucose (65-105) mg/dL Lactic Acid 5.3 H* (0.7-2.1) mmol/L Calcium (8.6-10.4) mg/dl Phosphorus (2.5-4.5) mg/dL Magnesium (1.6-2.3) mg/dL Total Bilirubin (0.2-1.3) mg/dL AST (14-36) U/L ALT (9-52) U/L Alkaline Phosphatase (38-126) U/L Total Protein (6.3-8.3) g/dL Albumin (3.5-5.0) g/dL Globulin (2.2-3.9) gm/dL Albumin/Globulin Ratio (1.0-2.1) Arterial Blood Potassium (3.6-5.2) mmol/L Laboratory Results - last 24 hr 05/14/17 05/14/17 05/14/17 11:42 12:10 16:14 WBC RBC Hgb Hct MCV MCH MCHC RDW Plt Count MPV Neut % (Auto) Lymph % (Auto) [place] % (Auto) Eos % (Auto) Baso % (Auto) Neut # Lymph # [place] # Eos # Baso # Puncture Site pCO2 pO2 HCO3 ABG pH ABG Total CO2 ABG O2 Saturation ABG Base Excess Joey Test ABG Potassium A-a O2 Difference Respiratory Index Sodium Chloride Glucose Lactate Vent Mode Mechanical Rate FiO2 Tidal Volume PEEP Crit Value Called To Crit Value Called By Crit Value Read Back Blood Gas Notified Time Potassium Carbon Dioxide Anion Gap BUN Creatinine Est GFR ( Amer) Est GFR (Non-Af Amer) POC Glucose (mg/dL) 264 H 247 H Random Glucose Lactic Acid 5.3 H* Calcium Phosphorus Magnesium Total Bilirubin AST ALT Alkaline Phosphatase Total Protein Albumin Globulin Albumin/Globulin Ratio Arterial Blood Potassium 05/14/17 05/14/17 05/15/17 19:35 23:53 04:04 WBC RBC Hgb Hct MCV MCH MCHC RDW Plt Count MPV Neut % (Auto) Lymph % (Auto) [place] % (Auto) Eos % (Auto) Baso % (Auto) Neut # Lymph # [place] # Eos # Baso # Puncture Site pCO2 pO2 HCO3 ABG pH ABG Total CO2 ABG O2 Saturation ABG Base Excess Joey Test ABG Potassium A-a O2 Difference Respiratory Index Sodium Chloride Glucose Lactate Vent Mode Mechanical Rate FiO2 Tidal Volume PEEP Crit Value Called To Crit Value Called By Crit Value Read Back Blood Gas Notified Time Potassium Carbon Dioxide Anion Gap BUN Creatinine Est GFR ( Amer) Est GFR (Non-Af Amer) POC Glucose (mg/dL) 228 H 297 H 238 H Random Glucose Lactic Acid Calcium Phosphorus Magnesium Total Bilirubin AST ALT Alkaline Phosphatase Total Protein Albumin Globulin Albumin/Globulin Ratio Arterial Blood Potassium 05/15/17 05/15/17 05/15/17 05:14 06:28 06:28 WBC 28.5 H RBC 2.59 L Hgb 8.2 L Hct 24.8 L MCV 95.8 MCH 31.8 H MCHC 33.2 RDW 17.9 H Plt Count 341 MPV 10.5 Neut % (Auto) 85.4 H Lymph % (Auto) 8.9 L [place] % (Auto) 3.7 Eos % (Auto) 1.8 Baso % (Auto) 0.2 Neut # 24.3 H Lymph # 2.5 [place] # 1.0 H Eos # 0.5 Baso # 0.1 Puncture Site Rr pCO2 33 L pO2 187 H HCO3 24.7 ABG pH 7.45 ABG Total CO2 23.9 ABG O2 Saturation 100.3 H ABG Base Excess -0.4 Joey Test Pos ABG Potassium 2.5 L* A-a O2 Difference 57.0 Respiratory Index 0.3 Sodium 141.0 134 Chloride 108.0 H 100 Glucose 221 H Lactate 3.0 H Vent Mode Prvc Mechanical Rate 15 FiO2 40.0 Tidal Volume 450 PEEP 5 Crit Value Called To Rachelle cornejo/rn Crit Value Called By Chi vick/rt Crit Value Read Back Y Blood Gas Notified Time 540 Potassium 2.4 L* D Carbon Dioxide 25 Anion Gap 11 BUN 50 H Creatinine 2.1 H Est GFR ( Amer) 28 Est GFR (Non-Af Amer) 23 POC Glucose (mg/dL) Random Glucose 215 H Lactic Acid Calcium 7.2 L Phosphorus 1.4 L Magnesium 2.0 Total Bilirubin 0.4 AST 26 ALT 29 Alkaline Phosphatase 380 H D Total Protein 4.2 L Albumin 1.8 L Globulin 2.4 Albumin/Globulin Ratio 0.8 L Arterial Blood Potassium 2.5 L* 05/15/17 07:52 WBC RBC Hgb Hct MCV MCH MCHC RDW Plt Count MPV Neut % (Auto) Lymph % (Auto) [place] % (Auto) Eos % (Auto) Baso % (Auto) Neut # Lymph # [place] # Eos # Baso # Puncture Site pCO2 pO2 HCO3 ABG pH ABG Total CO2 ABG O2 Saturation ABG Base Excess Joey Test ABG Potassium A-a O2 Difference Respiratory Index Sodium Chloride Glucose Lactate Vent Mode Mechanical Rate FiO2 Tidal Volume PEEP Crit Value Called To Crit Value Called By Crit Value Read Back Blood Gas Notified Time Potassium Carbon Dioxide Anion Gap BUN Creatinine Est GFR ( Amer) Est GFR (Non-Af Amer) POC Glucose (mg/dL) 216 H Random Glucose Lactic Acid Calcium Phosphorus Magnesium Total Bilirubin AST ALT Alkaline Phosphatase Total Protein Albumin Globulin Albumin/Globulin Ratio Arterial Blood Potassium Fingerstick Blood Sugar Results: 236 Assessment/Plan - Assessment and Plan (Free Text) Assessment: 71F with a history of dialysis, renal failure and congestive heart failure, diabetes, hypertension, peripheral vascular disease, history of left knee below- knee limitation who was brought to the ICU for sepsis. Patient with respiratory distress during dialysis on 05/13 and intubated. Plan: Neuro: Propofol drip Dialudid 0.5 mg IVP Q6H HEENT: brimonidine 0.2% 1 ml OU TID latanoprost 0.02 ml OU timolol 1 drop OU BID Respiratory: 05/13 - Intubated (RR 15, TV 450, PEEP 5, FiO2 60) - titrate FiO2 to maintain O2 > 92%) BiPAP trial with plan to extubate, as tolerated CXR 05/15: Stable position of endotracheal tube and right PICC line. No change in left lower lobe consolidation and moderate left pleural effusion. Chest CT angio: Filling defects are noted at both upper lobes pulmonary arteries suggestive of pulmonary embolus. Large bilateral effusion. Mild cardiomegaly. [id number] periocardial effusion. [id number] anasarca. Lower lobe atelectasis due to pleural effusion. HEM: H&H: 8.2/24.8 PLT: 341 Eliquis 5mg PO daily Procrit Nephro: I - 2100 O - [address] Ambrose consulted, help appreciated Pt undergoes hemodialysis Tues/Th/Sat Ergocalcierol 1 capsule PO Q7D Procrit Fluid, Electrolytes, Diet: Netrophos BID Tube feeds Thiamine Vitamin B complex 05/15: Potassium 2.4 - Potassium Phosphate 15 mmole 255 mls @ 42.5 mls/hr Repeat CMP, magnesium and phosphorous after dialysis Endo: DM ISS Lantus 10 units SC AMHS Accucheck Glucose Hypoglycemic protocol Cardio: hx of diastolic CHF MAP > 65, EF 61% Midodrine 10 mg PRN Crestor 10 mg PO HS Timolol Maleate 1 drop OU BID ELINA ID: Sepsis WBC 28.5 Lactate 5.3 on 05/11 and 05/13. 3.0 on 05/15 procal > 200 (05/12) Tmax overnight 101 wound culture showing candidia tissue culture negative blood culture negative x48h Infecious Disease, Dr. Wellington consulted, help appreciated: recommends removing PICC line as source of infection Surgery, Dr. Broussard consulted, help appreciated: Examined AV fistula site due to poor flow. Recommendation is to insert permactah and Right IJ triple lumen Fluconazole 200 mg IVPB q24h Nystatin 1 g TOP Q8 Linezolid 600 mg Q12 Cefepime 1 g QD Wound vac for left AKA wound - not likely the source of elevated WBC count. Plans to change wound vac today GI AST 43 ALT 37 Prophylactic Care GI: Protonix 40 mg PO daily PEG tube feedings SCD to right lower extremity <Jordan Stafford P - Last Filed: 05/16/17 08:11> CCU Objective - Vital Signs / Intake & Output Vital Signs (Last 4 hours): Vital Signs Temp Pulse Resp BP Pulse Ox 05/16/17 06:28 106 H 18 92/41 L 100 05/16/17 06:13 104 H 16 90/42 L 99 05/16/17 06:00 104 H 19 100 05/16/17 05:58 105 H 16 97/46 L 100 05/16/17 05:45 99 F 104 H 13 108/48 L 05/16/17 05:43 106 H 21 108/48 L 100 05/16/17 05:28 108 H 15 124/54 L 98 05/16/17 05:14 114 H 15 152/61 H 100 05/16/17 05:11 99 F 114 H 13 124/54 L 05/16/17 05:00 105 H 25 H 100 05/16/17 04:59 102 H 13 138/47 L 100 05/16/17 04:43 106 H 19 119/60 100 05/16/17 04:28 105 H 16 117/62 100 05/16/17 04:13 105 H 17 122/49 L 100 05/16/17 04:11 99.5 F 104 H 17 122/49 L Intake and Output (Last 8hrs): Intake & Output 05/15/17 05/16/17 05/16/17 22:59 06:59 14:59 Intake Total 1080 820 Output Total 1800 1000 Balance -720 -180 Weight 121 lb 14.65 oz Intake: Intake, IV Amount 600 Right PICC 600 Tube Feeding 420 60 Blood Product 650 Red Blood Cells Cpd As1 325 Lr Unit [id number] Other 60 110 Output: Stool 1800 1000 - Medications Active Medications: Active Medications Generic Name Dose Route Start Last Admin Trade Name Freq PRN Reason Stop Dose Admin Acetaminophen 650 mg 05/13/17 09:40 05/15/17 20:15 Tylenol 650mg/20.3ml Solution Ud PO 650 mg Q6 PRN Administration Fever >100.4 F Albumin Human 12.5 gm 05/13/17 12:00 05/15/17 11:45 Albumin Human 5% (12.5 Gm/250 Ml) IV 12.5 gm MWF PRN Administration hypotension Apixaban 5 mg 05/13/17 10:00 05/15/17 19:20 Eliquis PO 5 mg BID ELINA Administration Brimonidine Tartrate 1 ml 04/12/17 10:00 05/15/17 18:00 Alphagan 0.2% Opht OU 1 applic TID ELINA Administration Collagenase 0 gm 05/12/17 11:15 05/15/17 14:31 Santyl TOP 1 applic DAILY ELINA Administration Epoetin Maxwell 10,000 unit 04/27/17 12:00 05/15/17 11:11 Procrit IV 10,000 unit MWF ELINA Administration Ergocalciferol 1 cap 04/11/17 22:30 05/09/17 21:48 Drisdol 50,000 Intl Units Cap PO 1 cap Q7D ELINA Administration Glucagon 1 mg 04/19/17 08:20 05/02/17 22:26 Glucagen Diagnostic Kit IM 1 mg STAT PRN Administration Hypoglycemia Protocol Protocol Hydromorphone HCl 0.5 mg 05/13/17 08:45 Dilaudid IVP Q6H PRN Pain, severe (8-10) Cefepime HCl 1 gm in 50 mls @ 100 mls/hr 05/12/17 10:45 05/15/17 11:45 Maxipime Iv 1 Gm Premix IVPB 100 mls/hr Q24H ELINA Administration Linezolid 600 mg in 300 mls @ 200 mls/hr 05/12/17 22:00 05/15/17 22:27 Zyvox 600mg/300ml D5w IVPB 200 mls/hr Q12 ELINA Administration Propofol 1,000 mg in 100 mls @ 1.762 mls/hr 05/13/17 15:41 05/13/17 20:00 Diprivan IV 10 mcg/kg/min .Q24H PRN 3.524 mls/hr TITRATE PER MD ORDER Titration Protocol 5 MCG/KG/MIN Micafungin Sodium 100 mg/ 100 mls @ 100 mls/hr 05/14/17 20:00 05/15/17 20:14 Sodium Chloride IV 100 mls/hr Q24H ELINA Administration Norepinephrine Bitartrate 8 mg 250 mls @ 7.5 mls/hr 05/16/17 07:13 / Sodium Chloride IV .Q24H PRN TITRATE PER MD ORDER Protocol 4 MCG/MIN Insulin Glargine 10 unit 05/14/17 22:00 05/15/17 22:00 Lantus SC Not Given AMHS ELINA Insulin Human Regular 0 unit 05/14/17 21:05 05/16/17 04:00 Novolin R SC Not Given Q4 ELINA Protocol Latanoprost 0.02 ml 04/12/17 22:00 05/15/17 22:27 Xalatan Opht OU 0.02 ml HS ELINA Administration Midodrine 10 mg 04/27/17 11:04 05/09/17 11:02 Proamatine PO 10 mg ONCE PRN Administration Diastolic blood pressure Nystatin 1 gm 05/11/17 15:51 05/16/17 00:30 Nystop Topical Powder TOP 1 applic Q8H ELINA Administration Pantoprazole Sodium 40 mg 04/18/17 10:00 05/15/17 11:12 Protonix Susp PO Not Given DAILY ELINA Potassium Phos/Sodium Phos 1 pkt 05/13/17 09:00 05/15/17 19:20 Neutra-Phos PO 1 pkt BIDPC ELINA Administration Rosuvastatin Calcium 10 mg 04/12/17 22:00 05/15/17 22:26 Crestor PO 10 mg HS ELINA Administration Thiamine HCl 100 mg 04/11/17 22:30 05/16/17 06:05 Vitamin B1 Inj IV 100 mg Q8H ELINA Administration Timolol Maleate 1 drop 04/12/17 10:00 05/15/17 18:00 Timoptic 0.5% Ophth Soln OU 1 drop BID ELINA Administration Vitamin B Complex/Vit C/Folic Acid 1 tab 04/12/17 08:00 05/15/17 11:11 Nephro-Alonzo PO Not Given 0800 [facility] - Patient Studies Lab Studies: Microbiology Studies 05/11/17 10:56 Blood Culture - Preliminary Blood-During Dialysis NO GROWTH AFTER 4 DAYS Lab Studies 05/16/17 05/16/17 05/16/17 Range/Units 07:38 06:58 05:29 WBC (4.8-10.8) K/uL RBC (3.80-5.20) Mil/uL Hgb (11.0-16.0) g/dL Hct (34.0-47.0) % MCV (81.0-99.0) fL MCH (27.0-31.0) pg MCHC (33.0-37.0) g/dL RDW (11.5-14.5) % Plt Count (130-400) K/uL MPV (7.2-11.7) fL Neut % (Auto) (50.0-75.0) % Lymph % (Auto) (20.0-40.0) % [place] % (Auto) (0.0-10.0) % Eos % (Auto) (0.0-4.0) % Baso % (Auto) (0.0-2.0) % Neut # (1.8-7.0) K/uL Lymph # (1.0-4.3) K/uL [place] # (0.0-0.8) K/uL Eos # (0.0-0.7) K/uL Baso # (0.0-0.2) K/uL Neutrophils % (Manual) (50-75) % Band Neutrophils % (0-2) % Lymphocytes % (Manual) (20-40) % Monocytes % (Manual) (0-10) % Eosinophils % (Manual) (0-4) % Nucleated RBC % (0-0) % Platelet Estimate (NORMAL) Polychromasia Hypochromasia (manual) Anisocytosis (manual) Macrocytosis (manual) Ovalocytes PT 14.8 H (9.7-12.2) SECONDS INR 1.3 APTT 30 (21-34) SECONDS Puncture Site Rr pCO2 27 L (35-45) mm/Hg pO2 173 H (80-100) mm/Hg HCO3 22.4 (21-28) mmol/L ABG pH 7.47 H (7.35-7.45) ABG Total CO2 20.5 L (22-28) mmol/L ABG O2 Saturation 99.9 H (95-98) % ABG Base Excess -3.2 L (-2.0-3.0) mmol/L ABG Hemoglobin 8.9 L (11.7-17.4) g/dL ABG Carboxyhemoglobin 2.1 H (0.5-1.5) % POC ABG HHb (Measured) 0.1 (0.0-5.0) % ABG Methemoglobin 1.3 (0.0-3.0) % Joey Test Pos A-a O2 Difference 78.0 mm/Hg Respiratory Index 0.5 Hgb O2 Saturation 96.5 (95.0-98.0) % Vent Mode Cpap FiO2 40.0 % Pressure Support 15 CPAP 5 Sodium (132-148) mmol/L Potassium (3.6-5.2) mmol/L Chloride (98-107) mmol/L Carbon Dioxide (22-30) mmol/L Anion Gap (10-20) BUN (7-17) mg/dL Creatinine (0.7-1.2) mg/dL Est GFR ( Amer) Est GFR (Non-Af Amer) POC Glucose (mg/dL) 164 H (65-110) mg/dL Random Glucose (65-105) mg/dL Calcium (8.6-10.4) mg/dl Phosphorus (2.5-4.5) mg/dL Magnesium (1.6-2.3) mg/dL Total Bilirubin (0.2-1.3) mg/dL AST (14-36) U/L ALT (9-52) U/L Alkaline Phosphatase (38-126) U/L Total Protein (6.3-8.3) g/dL Albumin (3.5-5.0) g/dL Globulin (2.2-3.9) gm/dL Albumin/Globulin Ratio (1.0-2.1) Blood Type Antibody Screen 05/16/17 05/16/17 05/15/17 Range/Units 04:21 00:30 23:41 WBC (4.8-10.8) K/uL RBC (3.80-5.20) Mil/uL Hgb (11.0-16.0) g/dL Hct (34.0-47.0) % MCV (81.0-99.0) fL MCH (27.0-31.0) pg MCHC (33.0-37.0) g/dL RDW (11.5-14.5) % Plt Count (130-400) K/uL MPV (7.2-11.7) fL Neut % (Auto) (50.0-75.0) % Lymph % (Auto) (20.0-40.0) % [place] % (Auto) (0.0-10.0) % Eos % (Auto) (0.0-4.0) % Baso % (Auto) (0.0-2.0) % Neut # (1.8-7.0) K/uL Lymph # (1.0-4.3) K/uL [place] # (0.0-0.8) K/uL Eos # (0.0-0.7) K/uL Baso # (0.0-0.2) K/uL Neutrophils % (Manual) (50-75) % Band Neutrophils % (0-2) % Lymphocytes % (Manual) (20-40) % Monocytes % (Manual) (0-10) % Eosinophils % (Manual) (0-4) % Nucleated RBC % (0-0) % Platelet Estimate (NORMAL) Polychromasia Hypochromasia (manual) Anisocytosis (manual) Macrocytosis (manual) Ovalocytes PT (9.7-12.2) SECONDS INR APTT (21-34) SECONDS Puncture Site pCO2 (35-45) mm/Hg pO2 (80-100) mm/Hg HCO3 (21-28) mmol/L ABG pH (7.35-7.45) ABG Total CO2 (22-28) mmol/L ABG O2 Saturation (95-98) % ABG Base Excess (-2.0-3.0) mmol/L ABG Hemoglobin (11.7-17.4) g/dL ABG Carboxyhemoglobin (0.5-1.5) % POC ABG HHb (Measured) (0.0-5.0) % ABG Methemoglobin (0.0-3.0) % Joey Test A-a O2 Difference mm/Hg Respiratory Index Hgb O2 Saturation (95.0-98.0) % Vent Mode FiO2 % Pressure Support CPAP Sodium (132-148) mmol/L Potassium (3.6-5.2) mmol/L Chloride (98-107) mmol/L Carbon Dioxide (22-30) mmol/L Anion Gap (10-20) BUN (7-17) mg/dL Creatinine (0.7-1.2) mg/dL Est GFR ( Amer) Est GFR (Non-Af Amer) POC Glucose (mg/dL) 216 H 330 H (65-110) mg/dL Random Glucose (65-105) mg/dL Calcium (8.6-10.4) mg/dl Phosphorus (2.5-4.5) mg/dL Magnesium (1.6-2.3) mg/dL Total Bilirubin (0.2-1.3) mg/dL AST (14-36) U/L ALT (9-52) U/L Alkaline Phosphatase (38-126) U/L Total Protein (6.3-8.3) g/dL Albumin (3.5-5.0) g/dL Globulin (2.2-3.9) gm/dL Albumin/Globulin Ratio (1.0-2.1) Blood Type B POSITIVE Antibody Screen Negative 05/15/17 05/15/17 05/15/17 Range/Units 22:46 20:04 16:14 WBC 28.1 H (4.8-10.8) K/uL RBC 2.18 L (3.80-5.20) Mil/uL Hgb 6.8 L (11.0-16.0) g/dL Hct 21.2 L (34.0-47.0) % MCV 97.1 (81.0-99.0) fL MCH 31.2 H (27.0-31.0) pg MCHC 32.2 L (33.0-37.0) g/dL RDW 17.9 H (11.5-14.5) % Plt Count 306 (130-400) K/uL MPV 10.3 (7.2-11.7) fL Neut % (Auto) 85.5 H (50.0-75.0) % Lymph % (Auto) 7.5 L (20.0-40.0) % [place] % (Auto) 5.7 (0.0-10.0) % Eos % (Auto) 1.2 (0.0-4.0) % Baso % (Auto) 0.1 (0.0-2.0) % Neut # 24.0 H (1.8-7.0) K/uL Lymph # 2.1 (1.0-4.3) K/uL [place] # 1.6 H (0.0-0.8) K/uL Eos # 0.3 (0.0-0.7) K/uL Baso # 0.0 (0.0-0.2) K/uL Neutrophils % (Manual) 81 H (50-75) % Band Neutrophils % 2 (0-2) % Lymphocytes % (Manual) 8 L (20-40) % Monocytes % (Manual) 8 (0-10) % Eosinophils % (Manual) 1 (0-4) % Nucleated RBC % 1 H (0-0) % Platelet Estimate Normal (NORMAL) Polychromasia Slight Hypochromasia (manual) Slight Anisocytosis (manual) Slight Macrocytosis (manual) Slight Ovalocytes Slight PT (9.7-12.2) SECONDS INR APTT (21-34) SECONDS Puncture Site pCO2 (35-45) mm/Hg pO2 (80-100) mm/Hg HCO3 (21-28) mmol/L ABG pH (7.35-7.45) ABG Total CO2 (22-28) mmol/L ABG O2 Saturation (95-98) % ABG Base Excess (-2.0-3.0) mmol/L ABG Hemoglobin (11.7-17.4) g/dL ABG Carboxyhemoglobin (0.5-1.5) % POC ABG HHb (Measured) (0.0-5.0) % ABG Methemoglobin (0.0-3.0) % Joey Test A-a O2 Difference mm/Hg Respiratory Index Hgb O2 Saturation (95.0-98.0) % Vent Mode FiO2 % Pressure Support CPAP Sodium (132-148) mmol/L Potassium (3.6-5.2) mmol/L Chloride (98-107) mmol/L Carbon Dioxide (22-30) mmol/L Anion Gap (10-20) BUN (7-17) mg/dL Creatinine (0.7-1.2) mg/dL Est GFR ( Amer) Est GFR (Non-Af Amer) POC Glucose (mg/dL) 279 H 305 H (65-110) mg/dL Random Glucose (65-105) mg/dL Calcium (8.6-10.4) mg/dl Phosphorus (2.5-4.5) mg/dL Magnesium (1.6-2.3) mg/dL Total Bilirubin (0.2-1.3) mg/dL AST (14-36) U/L ALT (9-52) U/L Alkaline Phosphatase (38-126) U/L Total Protein (6.3-8.3) g/dL Albumin (3.5-5.0) g/dL Globulin (2.2-3.9) gm/dL Albumin/Globulin Ratio (1.0-2.1) Blood Type Antibody Screen 05/15/17 05/15/17 05/15/17 Range/Units 13:27 11:29 06:28 WBC (4.8-10.8) K/uL RBC (3.80-5.20) Mil/uL Hgb (11.0-16.0) g/dL Hct (34.0-47.0) % MCV (81.0-99.0) fL MCH (27.0-31.0) pg MCHC (33.0-37.0) g/dL RDW (11.5-14.5) % Plt Count (130-400) K/uL MPV (7.2-11.7) fL Neut % (Auto) (50.0-75.0) % Lymph % (Auto) (20.0-40.0) % [place] % (Auto) (0.0-10.0) % Eos % (Auto) (0.0-4.0) % Baso % (Auto) (0.0-2.0) % Neut # (1.8-7.0) K/uL Lymph # (1.0-4.3) K/uL [place] # (0.0-0.8) K/uL Eos # (0.0-0.7) K/uL Baso # (0.0-0.2) K/uL Neutrophils % (Manual) 82 H (50-75) % Band Neutrophils % 3 H (0-2) % Lymphocytes % (Manual) 8 L (20-40) % Monocytes % (Manual) 3 (0-10) % Eosinophils % (Manual) 4 (0-4) % Nucleated RBC % 3 H (0-0) % Platelet Estimate Normal (NORMAL) Polychromasia Slight Hypochromasia (manual) Slight Anisocytosis (manual) Slight Macrocytosis (manual) Slight Ovalocytes PT (9.7-12.2) SECONDS INR APTT (21-34) SECONDS Puncture Site pCO2 (35-45) mm/Hg pO2 (80-100) mm/Hg HCO3 (21-28) mmol/L ABG pH (7.35-7.45) ABG Total CO2 (22-28) mmol/L ABG O2 Saturation (95-98) % ABG Base Excess (-2.0-3.0) mmol/L ABG Hemoglobin (11.7-17.4) g/dL ABG Carboxyhemoglobin (0.5-1.5) % POC ABG HHb (Measured) (0.0-5.0) % ABG Methemoglobin (0.0-3.0) % Joey Test A-a O2 Difference mm/Hg Respiratory Index Hgb O2 Saturation (95.0-98.0) % Vent Mode FiO2 % Pressure Support CPAP Sodium 138 (132-148) mmol/L Potassium 3.5 L (3.6-5.2) mmol/L Chloride 101 (98-107) mmol/L Carbon Dioxide 27 (22-30) mmol/L Anion Gap 15 (10-20) BUN 24 H (7-17) mg/dL Creatinine 1.2 (0.7-1.2) mg/dL Est GFR ( Amer) 54 Est GFR (Non-Af Amer) 44 POC Glucose (mg/dL) 223 H (65-110) mg/dL Random Glucose 197 H (65-105) mg/dL Calcium 7.9 L (8.6-10.4) mg/dl Phosphorus 1.0 L* (2.5-4.5) mg/dL Magnesium 2.0 (1.6-2.3) mg/dL Total Bilirubin 0.7 (0.2-1.3) mg/dL AST 33 (14-36) U/L ALT 31 (9-52) U/L Alkaline Phosphatase 485 H D (38-126) U/L Total Protein 6.0 L (6.3-8.3) g/dL Albumin 2.8 L D (3.5-5.0) g/dL Globulin 3.2 (2.2-3.9) gm/dL Albumin/Globulin Ratio 0.9 L (1.0-2.1) Blood Type Antibody Screen Laboratory Results - last 24 hr 05/15/17 05/15/17 05/15/17 06:28 11:29 13:27 WBC RBC Hgb Hct MCV MCH MCHC RDW Plt Count MPV Neut % (Auto) Lymph % (Auto) [place] % (Auto) Eos % (Auto) Baso % (Auto) Neut # Lymph # [place] # Eos # Baso # Neutrophils % (Manual) 82 H Band Neutrophils % 3 H Lymphocytes % (Manual) 8 L Monocytes % (Manual) 3 Eosinophils % (Manual) 4 Nucleated RBC % 3 H Platelet Estimate Normal Polychromasia Slight Hypochromasia (manual) Slight Anisocytosis (manual) Slight Macrocytosis (manual) Slight Ovalocytes PT INR APTT Puncture Site pCO2 pO2 HCO3 ABG pH ABG Total CO2 ABG O2 Saturation ABG Base Excess ABG Hemoglobin ABG Carboxyhemoglobin POC ABG HHb (Measured) ABG Methemoglobin Joey Test A-a O2 Difference Respiratory Index Hgb O2 Saturation Vent Mode FiO2 Pressure Support CPAP Sodium 138 Potassium 3.5 L Chloride 101 Carbon Dioxide 27 Anion Gap 15 BUN 24 H Creatinine 1.2 Est GFR ( Amer) 54 Est GFR (Non-Af Amer) 44 POC Glucose (mg/dL) 223 H Random Glucose 197 H Calcium 7.9 L Phosphorus 1.0 L* Magnesium 2.0 Total Bilirubin 0.7 AST 33 ALT 31 Alkaline Phosphatase 485 H D Total Protein 6.0 L Albumin 2.8 L D Globulin 3.2 Albumin/Globulin Ratio 0.9 L Blood Type Antibody Screen 05/15/17 05/15/17 05/15/17 16:14 20:04 22:46 WBC 28.1 H RBC 2.18 L Hgb 6.8 L Hct 21.2 L MCV 97.1 MCH 31.2 H MCHC 32.2 L RDW 17.9 H Plt Count 306 MPV 10.3 Neut % (Auto) 85.5 H Lymph % (Auto) 7.5 L [place] % (Auto) 5.7 Eos % (Auto) 1.2 Baso % (Auto) 0.1 Neut # 24.0 H Lymph # 2.1 [place] # 1.6 H Eos # 0.3 Baso # 0.0 Neutrophils % (Manual) 81 H Band Neutrophils % 2 Lymphocytes % (Manual) 8 L Monocytes % (Manual) 8 Eosinophils % (Manual) 1 Nucleated RBC % 1 H Platelet Estimate Normal Polychromasia Slight Hypochromasia (manual) Slight Anisocytosis (manual) Slight Macrocytosis (manual) Slight Ovalocytes Slight PT INR APTT Puncture Site pCO2 pO2 HCO3 ABG pH ABG Total CO2 ABG O2 Saturation ABG Base Excess ABG Hemoglobin ABG Carboxyhemoglobin POC ABG HHb (Measured) ABG Methemoglobin Joey Test A-a O2 Difference Respiratory Index Hgb O2 Saturation Vent Mode FiO2 Pressure Support CPAP Sodium Potassium Chloride Carbon Dioxide Anion Gap BUN Creatinine Est GFR ( Amer) Est GFR (Non-Af Amer) POC Glucose (mg/dL) 305 H 279 H Random Glucose Calcium Phosphorus Magnesium Total Bilirubin AST ALT Alkaline Phosphatase Total Protein Albumin Globulin Albumin/Globulin Ratio Blood Type Antibody Screen 05/15/17 05/16/17 05/16/17 23:41 00:30 04:21 WBC RBC Hgb Hct MCV MCH MCHC RDW Plt Count MPV Neut % (Auto) Lymph % (Auto) [place] % (Auto) Eos % (Auto) Baso % (Auto) Neut # Lymph # [place] # Eos # Baso # Neutrophils % (Manual) Band Neutrophils % Lymphocytes % (Manual) Monocytes % (Manual) Eosinophils % (Manual) Nucleated RBC % Platelet Estimate Polychromasia Hypochromasia (manual) Anisocytosis (manual) Macrocytosis (manual) Ovalocytes PT INR APTT Puncture Site pCO2 pO2 HCO3 ABG pH ABG Total CO2 ABG O2 Saturation ABG Base Excess ABG Hemoglobin ABG Carboxyhemoglobin POC ABG HHb (Measured) ABG Methemoglobin Joey Test A-a O2 Difference Respiratory Index Hgb O2 Saturation Vent Mode FiO2 Pressure Support CPAP Sodium Potassium Chloride Carbon Dioxide Anion Gap BUN Creatinine Est GFR ( Amer) Est GFR (Non-Af Amer) POC Glucose (mg/dL) 330 H 216 H Random Glucose Calcium Phosphorus Magnesium Total Bilirubin AST ALT Alkaline Phosphatase Total Protein Albumin Globulin Albumin/Globulin Ratio Blood Type B POSITIVE Antibody Screen Negative 05/16/17 05/16/17 05/16/17 05:29 06:58 07:38 WBC RBC Hgb Hct MCV MCH MCHC RDW Plt Count MPV Neut % (Auto) Lymph % (Auto) [place] % (Auto) Eos % (Auto) Baso % (Auto) Neut # Lymph # [place] # Eos # Baso # Neutrophils % (Manual) Band Neutrophils % Lymphocytes % (Manual) Monocytes % (Manual) Eosinophils % (Manual) Nucleated RBC % Platelet Estimate Polychromasia Hypochromasia (manual) Anisocytosis (manual) Macrocytosis (manual) Ovalocytes PT 14.8 H INR 1.3 APTT 30 Puncture Site Rr pCO2 27 L pO2 173 H HCO3 22.4 ABG pH 7.47 H ABG Total CO2 20.5 L ABG O2 Saturation 99.9 H ABG Base Excess -3.2 L ABG Hemoglobin 8.9 L ABG Carboxyhemoglobin 2.1 H POC ABG HHb (Measured) 0.1 ABG Methemoglobin 1.3 Joey Test Pos A-a O2 Difference 78.0 Respiratory Index 0.5 Hgb O2 Saturation 96.5 Vent Mode Cpap FiO2 40.0 Pressure Support 15 CPAP 5 Sodium Potassium Chloride Carbon Dioxide Anion Gap BUN Creatinine Est GFR ( Amer) Est GFR (Non-Af Amer) POC Glucose (mg/dL) 164 H Random Glucose Calcium Phosphorus Magnesium Total Bilirubin AST ALT Alkaline Phosphatase Total Protein Albumin Globulin Albumin/Globulin Ratio Blood Type Antibody Screen Attending/Attestation - Attestation I have personally seen and examined this patient.: Yes I have fully participated in the care of the patient.: Yes I have reviewed all pertinent clinical information: Yes
--- NOTE | 2017-05-15 09:26 | RAD ---
HISTORY: intubated COMPARISON: 05/14/2017. FINDINGS: The endotracheal tube terminates 2.5 cm proximal to the chinmay. The right PICC line terminates in the SVC. LUNGS: The right lung is well inflated and clear. There has been no significant interval change in left lower lobe consolidation and moderate left pleural effusion. PLEURA: No significant pleural effusion identified, no pneumothorax apparent. CARDIOVASCULAR: Stable. OSSEOUS STRUCTURES: No significant abnormalities. VISUALIZED UPPER ABDOMEN: Normal. OTHER FINDINGS: None. IMPRESSION: Stable position of endotracheal tube and right PICC line. No change in left lower lobe consolidation and moderate left pleural effusion.
[2017-05-15] MEDS ORDERED: Albumin Human 25% (12.5 gm/50 ml) IV ONE (09:33)
[2017-05-15] MEDS ORDERED: Potassium Phosphate 15 MMOLE in Sodium Chloride 0.9% 250 ML IVPB ONE (10:30)
[2017-05-15] MEDS: Brimonidine 0.2% Opth Sol (5ml) OU SCH ×3 (10:35→18:00)
[2017-05-15] MEDS: (Lantus) Insulin Glargine, Recombinant SC SCH ×2 (11:10→22:00)
[2017-05-15] MEDS: Potassium & Sodium Phosphate PO SCH ×2 (11:11→19:20)
[2017-05-15] MEDS: Epoetin Alfa 10,000 unit/ml Dialysis IV SCH (11:11)
[2017-05-15] MEDS: Multivitamin Vitamin B Complex (Nephro-Vite) Tab PO SCH (11:11)
[2017-05-15] MEDS: Pantoprazole 40 mg Susp UD PO SCH (11:12)
[2017-05-15] MEDS: Linezolid 600 mg in D5W 300 ml 600 MG/300 ML BAG IVPB SCH ×2 (11:13→22:27)
[2017-05-15] MEDS: Albumin Human 5% (12.5 gm/250 ml) IV PRN (11:45)
[2017-05-15] MEDS: Cefepime IV 1 gm in Dextrose 1 GM/50 ML BAG IVPB SCH (11:45)
--- NOTE | 2017-05-15 12:51 | CP.PCM.PN ---
Subjective - Date & Time of Evaluation Date of Evaluation: 05/15/17 Time of Evaluation: 09:00 - Subjective Subjective: discussed on rounds woud d/c or change picc if possible Mycamine added Objective - Vital Signs/Intake and Output Vital Signs (last 24 hours): Temp Pulse Resp BP Pulse Ox 98.6 F 97 H 25 H 118/46 L 98 05/15/17 09:55 05/15/17 11:31 05/15/17 11:31 05/15/17 12:25 05/15/17 11:31 Intake and Output: 05/15/17 05/15/17 06:59 18:59 Intake Total 1325 120 Output Total 400 50 Balance 925 70 - Medications Medications: Current Medications Acetaminophen (Tylenol 650mg/20.3ml Solution Ud) 650 mg PO Q6 PRN PRN Reason: Fever >100.4 F Last Admin: 05/14/17 21:15 Dose: 650 mg Albumin Human (Albumin Human 5% (12.5 Gm/250 Ml)) 12.5 gm IV MWF PRN PRN Reason: hypotension Last Admin: 05/15/17 11:45 Dose: 12.5 gm Apixaban (Eliquis) 5 mg PO BID [facility] Last Admin: 05/15/17 11:09 Dose: Not Given Brimonidine Tartrate (Alphagan 0.2% Opht) 1 ml OU TID [facility] Last Admin: 05/14/17 17:21 Dose: 1 applic Collagenase (Santyl) 0 gm TOP DAILY [facility] Last Admin: 05/14/17 11:18 Dose: Not Given Epoetin Maxwell (Procrit) 10,000 unit IV MWF [facility] Last Admin: 05/15/17 11:11 Dose: 10,000 unit Ergocalciferol (Drisdol 50,000 Intl Units Cap) 1 cap PO Q7D [facility] Last Admin: 05/09/17 21:48 Dose: 1 cap Glucagon (Glucagen Diagnostic Kit) 1 mg IM STAT PRN; Protocol PRN Reason: Hypoglycemia Protocol Last Admin: 05/02/17 22:26 Dose: 1 mg Hydromorphone HCl (Dilaudid) 0.5 mg IVP Q6H PRN PRN Reason: Pain, severe (8-10) Cefepime HCl (Maxipime Iv 1 Gm Premix) 1 gm in 50 mls @ 100 mls/hr IVPB Q24H [facility] Last Admin: 05/14/17 10:00 Dose: 100 mls/hr Linezolid (Zyvox 600mg/300ml D5w) 600 mg in 300 mls @ 200 mls/hr IVPB Q12 [facility] Last Admin: 05/15/17 11:13 Dose: Not Given Norepinephrine Bitartrate 8 mg (/ Dextrose) 250 mls @ 7.5 mls/hr IV .Q24H PRN; Protocol; 4 MCG/MIN PRN Reason: TITRATE PER MD ORDER Last Titration: 05/13/17 20:00 Dose: 0 mcg/min, 0 mls/hr Propofol (Diprivan) 1,000 mg in 100 mls @ 1.762 mls/hr IV .Q24H PRN; Protocol; 5 MCG/KG/MIN PRN Reason: TITRATE PER MD ORDER Last Titration: 05/13/17 20:00 Dose: 10 mcg/kg/min, 3.524 mls/hr Micafungin Sodium 100 mg/ (Sodium Chloride) 100 mls @ 100 mls/hr IV Q24H [facility] Last Admin: 05/14/17 21:00 Dose: 100 mls/hr Potassium Phosphate 15 mmole/ (Sodium Chloride) 255 mls @ 42.5 mls/hr IVPB ONCE ONE Stop: 05/15/17 16:29 Insulin Glargine (Lantus) 10 unit SC AMHS [facility] Last Admin: 05/15/17 11:10 Dose: Not Given Insulin Human Regular (Novolin R) 0 unit SC Q4 [facility] PRN Reason: Protocol Last Admin: 05/15/17 11:12 Dose: Not Given Latanoprost (Xalatan Opht) 0.02 ml OU HS [facility] Last Admin: 05/14/17 21:30 Dose: 0.02 ml Midodrine (Proamatine) 10 mg PO ONCE PRN PRN Reason: Diastolic blood pressure Last Admin: 05/09/17 11:02 Dose: 10 mg Nystatin (Nystop Topical Powder) 1 gm TOP Q8H [facility] Last Admin: 05/15/17 11:12 Dose: Not Given Pantoprazole Sodium (Protonix Susp) 40 mg PO DAILY [facility] Last Admin: 05/15/17 11:12 Dose: Not Given Potassium Phos/Sodium Phos (Neutra-Phos) 1 pkt PO BIDPC [facility] Last Admin: 05/15/17 11:11 Dose: Not Given Rosuvastatin Calcium (Crestor) 10 mg PO HS [facility] Last Admin: 05/14/17 21:15 Dose: 10 mg Thiamine HCl (Vitamin B1 Inj) 100 mg IV Q8H [facility] Last Admin: 05/15/17 05:35 Dose: 100 mg Timolol Maleate (Timoptic 0.5% Ophth Soln) 1 drop OU BID [facility] Last Admin: 05/14/17 17:18 Dose: 1 drop Vitamin B Complex/Vit C/Folic Acid (Nephro-Alonzo) 1 tab PO 0800 [facility] Last Admin: 05/15/17 11:11 Dose: Not Given - Labs Labs: 05/15/17 06:28 05/15/17 06:28 PT 14.1 SECONDS (9.7-12.2) H 05/05/17 11:49 INR 1.2 05/05/17 11:49 APTT 30 SECONDS (21-34) 05/05/17 11:49 Assessment and Plan (1) Elevated WBC count Status: Acute (2) S/P BKA (below knee amputation) Status: Acute (3) Sacral decubitus ulcer, stage III Status: Acute (4) Sepsis Status: Acute
--- NOTE | 2017-05-15 13:41 | PN ---
LOCATION: ICU 5. SUBJECTIVE: This is a 71-year-old female seen early and examined in rounds without reported significant clinical changes, tolerating PEG feeding well. The entire chart is reviewed including, but not limited to the most recent lab and radiology study results, current and previous medication list, current and previous medical events. Case discussed at length with staff in the floor. Patient is still intubated. Today's lab showed leukocytosis of 28.5, with hemoglobin low of 8.2, hematocrit 24.8, with normal platelet count and abnormal ABGs, with low potassium of 2.4, increased BUN to 15, increased creatinine of 2.1, elevated blood glucose level to 216 with low calcium 7.2, low phosphorus 1.4, with low albumin 1.8, total protein 4.2. Today's chest x-ray report still pending. PHYSICAL EXAMINATION: GENERAL: A [id number] female, intubated, somewhat sedated. VITAL SIGNS: Low-grade temperature of 99.5, with heart rate of 92, blood pressure of 134/56. HEENT: Showed pale, dry oral mucous membrane. Nonicteric sclerae. LUNGS: Scattered crepitation with decreased air entry at bases. HEART: Positive S1 and S2. ABDOMEN: PEG tube is in place, without reported bleeding or residual and no evidence of anterior abdominal wall cellulitis, well-formed stoma, covered with clean dressing. No mass or organomegaly. EXTREMITIES: With lower extremity edematous changes. No clubbing or cyanosis. NEUROLOGIC: No reported new neurological deficits, sensory or motor. IMPRESSION: 1. Failure to thrive with hypoalbuminemia, severe, with malnutrition. 2. Status post percutaneous endoscopic gastrostomy insertion. 3. Pneumonia with respiratory failure, intubated to vent. 4. Septicemia most likely secondary to above. 5. Known history of chronic renal failure, on hemodialysis. 6. Anemia secondary to above. 7. Electrolyte imbalance with hypophosphatemia, hypocalcemia, hypokalemia. SUGGESTIONS: 1. Correct any underlying electrolyte imbalance. 2. Subsequent and careful increase of rate of feeding. 3. Further recommendations to follow. Karena Arias MD
[2017-05-15 13:51] LABS: ALB/GLOB RATIO 0.9 (1.0-2.1); BILIRUBIN,TOTAL 0.7 mg/dL (0.2-1.3); CALCIUM 7.9 mg/dl (8.6-10.4); POTASSIUM 3.5 mmol/L (3.6-5.2)
[2017-05-15] MEDS: Collagenase 250 Units/gm Ointment(30 gm) TOP SCH (14:31)
--- NOTE | 2017-05-15 16:07 | CP.PCM.PCO ---
Physician Communication Note - Physician Communication Note Physician Communication Note: pt for OR tomorrow -permacath placement. consent obtained and in chart.
[2017-05-15] MEDS: Micafungin 100 MG in Sodium Chloride 0.9% 100 ML IV SCH (20:14)
[2017-05-15] MEDS: Acetaminophen 650mg/20.3ml solution UD PO PRN (20:15)
[2017-05-15] MEDS ORDERED: (Lantus) Insulin Glargine, Recombinant SC STA (20:44)
[2017-05-15] MEDS: Latanoprost 2.5 ml Opht Soln OU SCH (22:27)
[2017-05-15 22:48] LABS: BASO % 0.1 % (0.0-2.0); EOS # 0.3 K/uL (0.0-0.7); EOS % 1.2 % (0.0-4.0); HEMATOCRIT 21.2 % (34.0-47.0); LYMPH # 2.1 K/uL (1.0-4.3); LYMPH % 7.5 % (20.0-40.0); MEAN CELL VOLUME 97.1 fL (81.0-99.0); MEAN CORPUSCULAR HEMOGLOBIN 31.2 pg (27.0-31.0); MEAN CORPUSCULAR HGB CONC 32.2 g/dL (33.0-37.0); MEAN PLATELET VOLUME 10.3 fL (7.2-11.7); MONO # 1.6 K/uL (0.0-0.8); MONO % 5.7 % (0.0-10.0); NRBC % 1.8 % (0.0-2.0); PLATELET COUNT 306 K/uL (130-400); RED CELL DISTRIBUTION WIDTH 17.9 % (11.5-14.5); WHITE BLOOD COUNT 28.1 K/uL (4.8-10.8)
[2017-05-15 23:06] LABS: EOSINOPHIL 1 % (0-4); NEUTROPHIL 81 % (50-75); NUCLEATED RED BLOOD CELL 1 % (0-0); TOTAL CELLS COUNTED 100
[2017-05-16] MEDS ORDERED: Morphine 4 MG/ML VIAL IV STA (00:17)
[2017-05-16] MEDS: (Novolin R) Insulin Human Regular 100 units/ml vial SC SCH ×7 (00:26→20:00)
[2017-05-16] MEDS: Nystatin 100,000 Units/gm Topical Pow(15 gm) TOP SCH ×4 (00:30→15:52)
[2017-05-16] MEDS: Thiamine 100 mg/ml Inj IV SCH ×3 (06:05→22:02)
[2017-05-16 06:11] LABS: ABG ALLEN TEST POS; ARTERIAL BLOOD GAS MODE CPAP; ARTERIAL BLOOD HGB O2 SAT 96.5 % (95.0-98.0); CARBOXYHEMOGLOBIN 2.1 % (0.5-1.5); DRAW SITE RR; HHB 0.1 % (0.0-5.0); METHEMOGLOBIN 1.3 % (0.0-3.0)
--- NOTE | 2017-05-16 06:59 | CP.PCM.PN ---
Subjective - Date & Time of Evaluation Date of Evaluation: 05/16/17 Time of Evaluation: 06:57 - Subjective Subjective: Patient has rectal bleeding hemoglobin 6.9, eliquis put on hold, transfused PRBC , will monitor h/h. PEG lavage no bleeding. Objective - Vital Signs/Intake and Output Vital Signs (last 24 hours): Temp Pulse Resp BP Pulse Ox 99 F 106 H 18 92/41 L 100 05/16/17 05:45 05/16/17 06:28 05/16/17 06:28 05/16/17 06:28 05/16/17 06:28 Intake and Output: 05/15/17 05/16/17 18:59 06:59 Intake Total 980 1570 Output Total 2020 1000 Balance -1040 570 - Medications Medications: Current Medications Acetaminophen (Tylenol 650mg/20.3ml Solution Ud) 650 mg PO Q6 PRN PRN Reason: Fever >100.4 F Last Admin: 05/15/17 20:15 Dose: 650 mg Albumin Human (Albumin Human 5% (12.5 Gm/250 Ml)) 12.5 gm IV MWF PRN PRN Reason: hypotension Last Admin: 05/15/17 11:45 Dose: 12.5 gm Apixaban (Eliquis) 5 mg PO BID [facility] Last Admin: 05/15/17 19:20 Dose: 5 mg Brimonidine Tartrate (Alphagan 0.2% Opht) 1 ml OU TID [facility] Last Admin: 05/15/17 18:00 Dose: 1 applic Collagenase (Santyl) 0 gm TOP DAILY [facility] Last Admin: 05/15/17 14:31 Dose: 1 applic Epoetin Maxwell (Procrit) 10,000 unit IV MWF [facility] Last Admin: 05/15/17 11:11 Dose: 10,000 unit Ergocalciferol (Drisdol 50,000 Intl Units Cap) 1 cap PO Q7D [facility] Last Admin: 05/09/17 21:48 Dose: 1 cap Glucagon (Glucagen Diagnostic Kit) 1 mg IM STAT PRN; Protocol PRN Reason: Hypoglycemia Protocol Last Admin: 05/02/17 22:26 Dose: 1 mg Hydromorphone HCl (Dilaudid) 0.5 mg IVP Q6H PRN PRN Reason: Pain, severe (8-10) Cefepime HCl (Maxipime Iv 1 Gm Premix) 1 gm in 50 mls @ 100 mls/hr IVPB Q24H [facility] Last Admin: 05/15/17 11:45 Dose: 100 mls/hr Linezolid (Zyvox 600mg/300ml D5w) 600 mg in 300 mls @ 200 mls/hr IVPB Q12 [facility] Last Admin: 05/15/17 22:27 Dose: 200 mls/hr Norepinephrine Bitartrate 8 mg (/ Dextrose) 250 mls @ 7.5 mls/hr IV .Q24H PRN; Protocol; 4 MCG/MIN PRN Reason: TITRATE PER MD ORDER Last Titration: 05/13/17 20:00 Dose: 0 mcg/min, 0 mls/hr Propofol (Diprivan) 1,000 mg in 100 mls @ 1.762 mls/hr IV .Q24H PRN; Protocol; 5 MCG/KG/MIN PRN Reason: TITRATE PER MD ORDER Last Titration: 05/13/17 20:00 Dose: 10 mcg/kg/min, 3.524 mls/hr Micafungin Sodium 100 mg/ (Sodium Chloride) 100 mls @ 100 mls/hr IV Q24H [facility] Last Admin: 05/15/17 20:14 Dose: 100 mls/hr Insulin Glargine (Lantus) 10 unit SC AMHS [facility] Last Admin: 05/15/17 22:00 Dose: Not Given Insulin Human Regular (Novolin R) 0 unit SC Q4 [facility] PRN Reason: Protocol Last Admin: 05/16/17 04:00 Dose: Not Given Latanoprost (Xalatan Opht) 0.02 ml OU HS [facility] Last Admin: 05/15/17 22:27 Dose: 0.02 ml Midodrine (Proamatine) 10 mg PO ONCE PRN PRN Reason: Diastolic blood pressure Last Admin: 05/09/17 11:02 Dose: 10 mg Nystatin (Nystop Topical Powder) 1 gm TOP Q8H [facility] Last Admin: 05/16/17 00:30 Dose: 1 applic Pantoprazole Sodium (Protonix Susp) 40 mg PO DAILY [facility] Last Admin: 05/15/17 11:12 Dose: Not Given Potassium Phos/Sodium Phos (Neutra-Phos) 1 pkt PO BIDPC [facility] Last Admin: 05/15/17 19:20 Dose: 1 pkt Rosuvastatin Calcium (Crestor) 10 mg PO HS [facility] Last Admin: 05/15/17 22:26 Dose: 10 mg Thiamine HCl (Vitamin B1 Inj) 100 mg IV Q8H [facility] Last Admin: 05/16/17 06:05 Dose: 100 mg Timolol Maleate (Timoptic 0.5% Ophth Soln) 1 drop OU BID [facility] Last Admin: 05/15/17 18:00 Dose: 1 drop Vitamin B Complex/Vit C/Folic Acid (Nephro-Alonzo) 1 tab PO 0800 [facility] Last Admin: 05/15/17 11:11 Dose: Not Given - Labs Labs: 05/15/17 22:46 05/15/17 13:27 PT 14.1 SECONDS (9.7-12.2) H 05/05/17 11:49 INR 1.2 05/05/17 11:49 APTT 30 SECONDS (21-34) 05/05/17 11:49
[2017-05-16 07:23] LABS: INR 1.3
[2017-05-16] MEDS ORDERED: HEPARIN-NS 5,000 UNITS/500 ML 0 UNIT/0 ML BAG IV ONE (08:00)
[2017-05-16] MEDS: Norepinephrine 8 MG in Sodium Chloride 0.9% 242 ML IV PRN ×2 (08:00→22:06)
[2017-05-16] MEDS ORDERED: Lidocaine 1% Inj (20ml) ONE (08:00)
[2017-05-16 08:22] LABS: ALB/GLOB RATIO 1.1 (1.0-2.1); BILIRUBIN,TOTAL 0.7 mg/dL (0.2-1.3); CALCIUM 6.6 mg/dl (8.6-10.4); MAGNESIUM 1.7 mg/dL (1.6-2.3); PHOSPHOROUS 2.4 mg/dL (2.5-4.5); POTASSIUM 3.4 mmol/L (3.6-5.2); TOTAL PROTEIN 3.3 g/dL (6.3-8.3)
[2017-05-16 08:35] LABS: BASO # 0.3 K/uL (0.0-0.2)
[2017-05-16 08:40] LABS: BASO % 0.8 % (0.0-2.0); EOS # 0.4 K/uL (0.0-0.7); EOS % 1.1 % (0.0-4.0); HEMATOCRIT 25.7 % (34.0-47.0); LYMPH # 2.9 K/uL (1.0-4.3); LYMPH % 7.9 % (20.0-40.0); MEAN CORPUSCULAR HEMOGLOBIN 32.3 pg (27.0-31.0); MEAN CORPUSCULAR HGB CONC 34.3 g/dL (33.0-37.0); MEAN PLATELET VOLUME 10.6 fL (7.2-11.7); MONO # 1.7 K/uL (0.0-0.8); MONO % 4.6 % (0.0-10.0); NRBC % 1.1 % (0.0-2.0); PLATELET COUNT 338 K/uL (130-400); RED CELL DISTRIBUTION WIDTH 16.5 % (11.5-14.5); WHITE BLOOD COUNT 36.2 K/uL (4.8-10.8)
[2017-05-16] MEDS: Potassium & Sodium Phosphate PO SCH ×2 (09:00→17:53)
[2017-05-16 09:04] LABS: EOSINOPHIL 1 % (0-4); NEUTROPHIL 84 % (50-75); NUCLEATED RED BLOOD CELL 3 % (0-0); TOTAL CELLS COUNTED 100
[2017-05-16] MEDS: Linezolid 600 mg in D5W 300 ml 600 MG/300 ML BAG IVPB SCH ×2 (10:00→22:01)
[2017-05-16] MEDS: Brimonidine 0.2% Opth Sol (5ml) OU SCH ×3 (10:00→18:21)
[2017-05-16 10:03] LABS: POTASSIUM 3.9 mmol/L (3.6-5.2)
[2017-05-16 10:04] LABS: BILIRUBIN,TOTAL 0.8 mg/dL (0.2-1.3); CALCIUM 6.8 mg/dl (8.6-10.4); MAGNESIUM 1.7 mg/dL (1.6-2.3); PHOSPHOROUS 2.5 mg/dL (2.5-4.5)
[2017-05-16 10:33] LABS: ALB/GLOB RATIO 0.8 (1.0-2.1)
--- NOTE | 2017-05-16 10:52 | RAD ---
HISTORY: vent COMPARISON: 05/15/2017 FINDINGS: The right PICC line terminates in the SVC. The endotracheal tube terminates 2.5 cm proximal to the chinmay. LUNGS: The right lung is clear. No change in left lower lobe consolidation and moderate pleural effusion PLEURA: No significant pleural effusion identified, no pneumothorax apparent. CARDIOVASCULAR: Normal. OSSEOUS STRUCTURES: No significant abnormalities. VISUALIZED UPPER ABDOMEN: Normal. OTHER FINDINGS: None. IMPRESSION: No change in left lower lobe consolidation and moderate left pleural effusion. Stable position of endotracheal tube and right PICC line.
--- NOTE | 2017-05-16 11:39 | CP.PCM.PN ---
<Cortez Hugo S - Last Filed: 05/16/17 14:42> Subjective - Date & Time of Evaluation Date of Evaluation: 05/16/17 Time of Evaluation: 11:36 - Subjective Subjective: Progress Note for Dr. Myrick's Service Pt seen and examined at bedside. She is s/p port placement by Dr. Broussard this morning. She tolerated the procedure well and is now back in her room. She is still under the influence of anaesthesia during exam. Her hemoglobin this morning was 6.9. Eliquis was help prior to OR. Follow up cxr from today is stable with yesterday, lacking acute changes. She was hypotensive overnight and levophed was stared. Objective - Vital Signs/Intake and Output Vital Signs (last 24 hours): Temp Pulse Resp BP Pulse Ox 100 F H 130 H 33 H 98/61 L 100 05/16/17 08:00 05/16/17 11:00 05/16/17 11:00 05/16/17 10:59 05/16/17 11:00 Intake and Output: 05/16/17 05/16/17 06:59 18:59 Intake Total 1570 56.4 Output Total 1000 100 Balance 570 -43.6 - Medications Medications: Current Medications Acetaminophen (Tylenol 650mg/20.3ml Solution Ud) 650 mg PO Q6 PRN PRN Reason: Fever >100.4 F Last Admin: 05/15/17 20:15 Dose: 650 mg Albumin Human (Albumin Human 5% (12.5 Gm/250 Ml)) 12.5 gm IV MWF PRN PRN Reason: hypotension Last Admin: 05/15/17 11:45 Dose: 12.5 gm Apixaban (Eliquis) 5 mg PO BID [facility] Last Admin: 05/15/17 19:20 Dose: 5 mg Brimonidine Tartrate (Alphagan 0.2% Opht) 1 ml OU TID [facility] Last Admin: 05/15/17 18:00 Dose: 1 applic Collagenase (Santyl) 0 gm TOP DAILY [facility] Last Admin: 05/15/17 14:31 Dose: 1 applic Epoetin Maxwell (Procrit) 10,000 unit IV MWF [facility] Last Admin: 05/15/17 11:11 Dose: 10,000 unit Ergocalciferol (Drisdol 50,000 Intl Units Cap) 1 cap PO Q7D [facility] Last Admin: 05/09/17 21:48 Dose: 1 cap Glucagon (Glucagen Diagnostic Kit) 1 mg IM STAT PRN; Protocol PRN Reason: Hypoglycemia Protocol Last Admin: 05/02/17 22:26 Dose: 1 mg Hydromorphone HCl (Dilaudid) 0.5 mg IVP Q6H PRN PRN Reason: Pain, severe (8-10) Cefepime HCl (Maxipime Iv 1 Gm Premix) 1 gm in 50 mls @ 100 mls/hr IVPB Q24H [facility] Last Admin: 05/15/17 11:45 Dose: 100 mls/hr Linezolid (Zyvox 600mg/300ml D5w) 600 mg in 300 mls @ 200 mls/hr IVPB Q12 [facility] Last Admin: 05/15/17 22:27 Dose: 200 mls/hr Propofol (Diprivan) 1,000 mg in 100 mls @ 1.762 mls/hr IV .Q24H PRN; Protocol; 5 MCG/KG/MIN PRN Reason: TITRATE PER MD ORDER Last Titration: 05/13/17 20:00 Dose: 10 mcg/kg/min, 3.524 mls/hr Micafungin Sodium 100 mg/ (Sodium Chloride) 100 mls @ 100 mls/hr IV Q24H [facility] Last Admin: 05/15/17 20:14 Dose: 100 mls/hr Norepinephrine Bitartrate 8 mg (/ Sodium Chloride) 250 mls @ 7.5 mls/hr IV .Q24H PRN; Protocol; 4 MCG/MIN PRN Reason: TITRATE PER MD ORDER Insulin Glargine (Lantus) 10 unit SC AMHS [facility] Last Admin: 05/15/17 22:00 Dose: Not Given Insulin Human Regular (Novolin R) 0 unit SC Q4 [facility] PRN Reason: Protocol Last Admin: 05/16/17 09:56 Dose: Not Given Latanoprost (Xalatan Opht) 0.02 ml OU HS [facility] Last Admin: 05/15/17 22:27 Dose: 0.02 ml Midodrine (Proamatine) 10 mg PO ONCE PRN PRN Reason: Diastolic blood pressure Last Admin: 05/09/17 11:02 Dose: 10 mg Nystatin (Nystop Topical Powder) 1 gm TOP Q8H [facility] Last Admin: 05/16/17 00:30 Dose: 1 applic Pantoprazole Sodium (Protonix Susp) 40 mg PO DAILY [facility] Last Admin: 05/15/17 11:12 Dose: Not Given Potassium Phos/Sodium Phos (Neutra-Phos) 1 pkt PO BIDPC [facility] Last Admin: 05/15/17 19:20 Dose: 1 pkt Rosuvastatin Calcium (Crestor) 10 mg PO HS [facility] Last Admin: 05/15/17 22:26 Dose: 10 mg Thiamine HCl (Vitamin B1 Inj) 100 mg IV Q8H [facility] Last Admin: 05/16/17 06:05 Dose: 100 mg Timolol Maleate (Timoptic 0.5% Oph Soln) 1 drop OU BID [facility] Last Admin: 05/15/17 18:00 Dose: 1 drop Vitamin B Complex/Vit C/Folic Acid (Nephro-Alonzo) 1 tab PO 0800 [facility] Last Admin: 05/15/17 11:11 Dose: Not Given - Labs Labs: 05/16/17 08:30 05/16/17 08:30 PT 14.8 SECONDS (9.7-12.2) H 05/16/17 06:58 INR 1.3 05/16/17 06:58 APTT 30 SECONDS (21-34) 05/16/17 06:58 - Head Exam Head Exam: ATRAUMATIC - Eye Exam Eye Exam: EOMI - ENT Exam ENT Exam: Mucous Membranes Moist - Respiratory Exam Respiratory Exam: absent: Rhonchi, Wheezes Additional comments: intubated, good air exchange - Cardiovascular Exam Cardiovascular Exam: REGULAR RHYTHM, +S1, +S2 - Extremities Exam Additional comments: s/p L aka - Neurological Exam Additional comments: intubated and sedated - Skin Skin Exam: Dry, Warm Assessment and Plan - Assessment and Plan (Free Text) Plan: Neuro: Propofol drip Dialudid 0.5 mg IVP Q6H HEENT: brimonidine 0.2% 1 ml OU TID latanoprost 0.02 ml OU timolol 1 drop OU BID Respiratory: 05/13 - Intubated (RR 15, TV 450, PEEP 5, FiO2 60) - titrate FiO2 to maintain O2 > 92%) BiPAP trial with plan to extubate, as tolerated CXR 05/15: Stable position of endotracheal tube and right PICC line. No change in left lower lobe consolidation and moderate left pleural effusion. Chest CT angio: Filling defects are noted at both upper lobes pulmonary arteries suggestive of pulmonary embolus. Large bilateral effusion. Mild cardiomegaly. [id number] periocardial effusion. [id number] anasarca. Lower lobe atelectasis due to pleural effusion. HEM: H&H: 8.2/24.8 PLT: 341 Eliquis 5mg PO daily Procrit 05/15: 6.8/21.2 05/16: 8.8/25.7 after 1 unit pRBC Nephro: I - 2100 O - [address] Ambrose consulted, help appreciated Pt undergoes hemodialysis Tues/Th/Sat Ergocalcierol 1 capsule PO Q7D Procrit 05/16: [id number] Fluid, Electrolytes, Diet: Netrophos BID Tube feeds Thiamine Vitamin B complex 05/15: Potassium 2.4 - Potassium Phosphate 15 mmole 255 mls @ 42.5 mls/hr Repeat CMP, magnesium and phosphorous after dialysis 05/16: Potassium 3.9 Endo: DM ISS Lantus 10 units SC AMHS Accucheck Glucose Hypoglycemic protocol Cardio: hx of diastolic CHF MAP > 65, EF 61% Midodrine 10 mg PRN Crestor 10 mg PO HS Timolol Maleate 1 drop OU BID [facility] 05/16: Levophed drip for hypotension ID: Sepsis WBC 36.2 (increased from previous) Lactate 5.3 on 05/11 and 05/13. 3.0 on 05/15 procal > 200 (05/12) Tmax overnight 101 wound culture showing candidia tissue culture negative blood culture negative x48h Infecious Disease, Dr. Wellington consulted, help appreciated: recommends removing PICC line as source of infection Surgery, Dr. Broussard consulted, help appreciated: Examined AV fistula site due to poor flow. Recommendation is to insert permactah and Right IJ triple lumen Fluconazole 200 mg IVPB q24h Nystatin 1 g TOP Q8 Linezolid 600 mg Q12 Cefepime 1 g QD Wound vac for left AKA wound - not likely the source of elevated WBC count. Plans to change wound vac today 05/16 Tmax overnight 100. Permacath was placed by Dr. Broussard 05/16 GI AST 20 ALT 22 Prophylactic Care GI: Protonix 40 mg PO daily PEG tube feedings SCD to right lower extremity Patient will remain in ICU. Case discussed with Dr. Myrick. <Benson Myrick Jr. - Last Filed: 05/17/17 13:17> Objective - Vital Signs/Intake and Output Vital Signs (last 24 hours): Temp Pulse Resp BP Pulse Ox 99.5 F 134 H 16 135/48 L 100 05/17/17 08:00 05/17/17 11:00 05/17/17 11:00 05/17/17 11:00 05/17/17 11:00 Intake and Output: 05/17/17 05/17/17 06:59 18:59 Intake Total 1285.3 507.5 Output Total 100 Balance 1185.3 507.5 - Medications Medications: Current Medications Acetaminophen (Tylenol 650mg/20.3ml Solution Ud) 650 mg PO Q6 PRN PRN Reason: Fever >100.4 F Last Admin: 05/16/17 12:23 Dose: 650 mg Albumin Human (Albumin Human 5% (12.5 Gm/250 Ml)) 12.5 gm IV MWF PRN PRN Reason: hypotension Last Admin: 05/15/17 11:45 Dose: 12.5 gm Apixaban (Eliquis) 5 mg PO BID [facility] Last Admin: 05/15/17 19:20 Dose: 5 mg Brimonidine Tartrate (Alphagan 0.2% Opht) 1 ml OU TID [facility] Last Admin: 05/17/17 13:01 Dose: 1 applic Collagenase (Santyl) 0 gm TOP DAILY [facility] Last Admin: 05/17/17 09:54 Dose: 1 applic Epoetin Maxwell (Procrit) 10,000 unit IV MWF [facility] Last Admin: 05/15/17 11:11 Dose: 10,000 unit Ergocalciferol (Drisdol 50,000 Intl Units Cap) 1 cap PO Q7D [facility] Last Admin: 05/16/17 22:02 Dose: 1 cap Hydrocortisone Sodium Succinate (Solu-Cortef) 50 mg IV Q8H [facility] Last Admin: 05/17/17 12:58 Dose: Not Given Linezolid (Zyvox 600mg/300ml D5w) 600 mg in 300 mls @ 200 mls/hr IVPB Q12 [facility] Last Admin: 05/17/17 09:51 Dose: 200 mls/hr Propofol (Diprivan) 1,000 mg in 100 mls @ 1.762 mls/hr IV .Q24H PRN; Protocol; 5 MCG/KG/MIN PRN Reason: TITRATE PER MD ORDER Last Titration: 05/13/17 20:00 Dose: 10 mcg/kg/min, 3.524 mls/hr Micafungin Sodium 100 mg/ (Sodium Chloride) 100 mls @ 100 mls/hr IV Q24H [facility] Last Admin: 05/16/17 19:44 Dose: 100 mls/hr Norepinephrine Bitartrate 8 mg (/ Sodium Chloride) 250 mls @ 7.5 mls/hr IV .Q24H PRN; Protocol; 4 MCG/MIN PRN Reason: TITRATE PER MD ORDER Last Admin: 05/17/17 07:47 Dose: 20 mcg/min, 37.5 mls/hr Gentamicin Sulfate/Sodium Chloride (Gentamicin Iv 80 Mg Premix) 80 mg in 100 mls @ 100 mls/hr IVPB Q24H [facility] Last Admin: 05/17/17 12:56 Dose: 100 mls/hr Insulin Glargine (Lantus) 10 unit SC AMHS [facility] Last Admin: 05/17/17 09:52 Dose: Not Given Insulin Human Regular (Novolin R) 0 unit SC Q4 [facility] PRN Reason: Protocol Last Admin: 05/17/17 12:12 Dose: Not Given Latanoprost (Xalatan Opht) 0.02 ml OU HS [facility] Last Admin: 05/16/17 21:22 Dose: 0.02 ml Midodrine (Proamatine) 10 mg PO ONCE PRN PRN Reason: Diastolic blood pressure Last Admin: 05/09/17 11:02 Dose: 10 mg Nystatin (Nystop Topical Powder) 1 gm TOP Q8H [facility] Last Admin: 05/17/17 07:53 Dose: 1 applic Pantoprazole Sodium (Protonix Inj) 40 mg IVP DAILY [facility] Last Admin: 05/17/17 09:50 Dose: 40 mg Potassium Phos/Sodium Phos (Neutra-Phos) 1 pkt PO BIDPC [facility] Last Admin: 05/17/17 09:55 Dose: 1 pkt Rosuvastatin Calcium (Crestor) 10 mg PO HS [facility] Last Admin: 05/16/17 21:11 Dose: 10 mg Thiamine HCl (Vitamin B1 Inj) 100 mg IV Q8H [facility] Last Admin: 05/17/17 05:30 Dose: 100 mg Timolol Maleate (Timoptic 0.5% Ophth Soln) 1 drop OU BID [facility] Last Admin: 05/17/17 09:54 Dose: 1 drop Vitamin B Complex/Vit C/Folic Acid (Nephro-Alonzo) 1 tab PO 0800 [facility] Last Admin: 05/17/17 07:53 Dose: 1 tab - Labs Labs: 05/17/17 06:50 05/17/17 06:51 PT 14.8 SECONDS (9.7-12.2) H 05/16/17 06:58 INR 1.3 05/16/17 06:58 APTT 30 SECONDS (21-34) 05/16/17 06:58 Attending/Attestation - Attestation I have personally seen and examined this patient.: Yes I have fully participated in the care of the patient.: Yes I have reviewed all pertinent clinical information, including history, physical exam and plan: Yes Notes (Text): 05/17/17 13:17 Agree resident note and plan of care
[2017-05-16] MEDS: Cefepime IV 1 gm in Dextrose 1 GM/50 ML BAG IVPB SCH (11:40)
--- NOTE | 2017-05-16 12:00 | RAD ---
PROCEDURE: CHEST RADIOGRAPH, 1 VIEW HISTORY: post insertion rt jug trialysis cath COMPARISON: 05/16/2017. FINDINGS: The endotracheal tube terminates 2 cm proximal to the chinmay. The right IJV catheter terminates in the right atrium. The right PICC line terminates in the SVC. LUNGS: The right lung is well inflated and clear. There is no change in moderate left pleural effusion and retrocardiac consolidation. PLEURA: No pneumothorax or pleural fluid seen. CARDIOVASCULAR: Normal. OSSEOUS STRUCTURES: No significant abnormalities. VISUALIZED UPPER ABDOMEN: Normal. OTHER FINDINGS: None. IMPRESSION: Right-sided central venous catheter terminates in the right atrium. Stable position of endotracheal tube and right PICC line. No change in moderate left pleural effusion and left lower lobe consolidation.
[2017-05-16] MEDS: (Lantus) Insulin Glargine, Recombinant SC SCH ×2 (12:11→21:11)
[2017-05-16] MEDS: Collagenase 250 Units/gm Ointment(30 gm) TOP SCH (12:13)
[2017-05-16] MEDS: Acetaminophen 650mg/20.3ml solution UD PO PRN (12:23)
[2017-05-16] MEDS: Multivitamin Vitamin B Complex (Nephro-Vite) Tab PO SCH (12:25)
[2017-05-16] MEDS: Pantoprazole 40 mg Susp UD PO SCH (12:26)
--- NOTE | 2017-05-16 14:34 | PN ---
LOCATION: ICU 5. SUBJECTIVE: This is a 71-year-old female seen and examined in rounds, still on Levophed IV, appears to be lethargic, occasionally opens eyes and responds to painful stimuli, patient is still incontinent of fecal material and Flexi-Seal is still in place with trace of fresh blood on and off, mixed with maroon colored blood of unclear etiology, had blood transfusion, completed. The entire chart is reviewed including, but not limited to the most recent lab and radiology study results, current and the previous medication list, current and the previous medical events. Today's labs showed white blood cells increased to 36.2, low hemoglobin 8.8, low hematocrit 25.7 post blood transfusion with normal platelet count with PT 14.8 with abnormal ABGs and low CO2 content of 21 indicative of metabolic acidosis, BUN is still elevated 46, creatinine 2.0 with increased blood glucose level to 188 with low calcium 6.8 and low albumin 1.8, low total protein 4.0. Most recent chest x-ray done today, report is seen indicative of left lower pneumonia with moderate left pleural effusion. PHYSICAL EXAMINATION: GENERAL: A 71-year-old female, intubated to vent, appears to be lethargic. VITAL SIGNS: Low-grade temperature of 100 with pulse of 124, blood pressure of 100/66. HEENT: Showed pale, dry oral mucous membrane, nonicteric sclerae, intubated to vent. LUNGS: Scattered crepitation with excessive decrease of air entry at bases. HEART: Positive S1 and S2. ABDOMEN: Soft, PEG tube is in place without reported bleeding, residual, or resistance. EXTREMITIES: With lower extremities edematous changes. No clubbing or cyanosis. NEUROLOGIC: No reported new neurological deficits, sensory or motor. Despite the patient's reported rectal examination recently, report is stool for occult blood was negative as well as irrigation of the PEG tube without blood return or evidence of active bleeding, surprisingly. IMPRESSION: 1. Reported rectal bleeding with subsequent drop of hemoglobin and hematocrit, stable post transfusion. 2. Pneumonia, leukocytosis, respiratory failure, patient is intubated. 3. Malnutrition, dyspepsia, failure to thrive with severe hypoalbuminemia. 4. Status post percutaneous endoscopic gastrostomy insertion. 5. Septicemia secondary to above. 6. Known history of chronic renal failure, on hemodialysis. 7. Electrolyte imbalance. SUGGESTIONS: 1. Continue current management. 2. Correct any underlying coagulopathy. 3. No heparin in hemodialysis please. 4. Cancer markers including CEA. 5. If there is subsequent drop of hemoglobin or hematocrit or further evidence of active bleeding, then limited colonoscopy versus bleeding scan to be kept in mind. 6. Further recommendation to follow. Karena Arias MD
--- NOTE | 2017-05-16 14:47 | CP.CCUPN ---
CCU Subjective - Physician Review Events Since Last Encounter (Free Text): 05/16/17 14:40 71-year-old female with history of end-stage renal disease, peripheral vascular disease Severe sepsis Anemia left BKA, infected stump Now having sepsis, high lactate. Patient got intubated 2 days ago, on ventilator now. Responding very poorly Patient has norepinephrine drip to maintain the blood pressure. she is on antibiotic. Vital signs reviewed No neck vein distention noted bilateral wheezing tachycardia Abdomen soft, nontender. generalized edema Respiratory insufficiency X-ray left lower lung pneumonia On antibiotic Hemodialysis Ventilator Portable prognosis Patient today received a new hemodialysis catheter We'll continue the current treatment CCU Objective - Vital Signs / Intake & Output Vital Signs (Last 4 hours): Vital Signs Temp Pulse Resp BP Pulse Ox 05/16/17 13:35 100.3 F H 128 H 22 130/77 05/16/17 13:20 100.6 F H 126 H 22 100/60 05/16/17 13:15 100.6 F H 125 H 22 105/77 05/16/17 11:00 130 H 33 H 100 05/16/17 10:59 130 H 30 H 98/61 L 100 05/16/17 10:43 127 H 21 88/45 L 100 Intake and Output (Last 8hrs): Intake & Output 05/15/17 05/16/17 05/16/17 22:59 06:59 14:59 Intake Total 1080 820 156.4 Output Total 1800 1000 100 Balance -720 -180 56.4 Weight 121 lb 14.65 oz Intake: Intake, IV Amount 600 56.4 Right PICC 600 56.4 Tube Feeding 420 60 0 Blood Product 650 0 Red Blood Cells Cpd As1 325 Lr Unit [id number] Red Blood Cells Cpd As1 0 Lr Unit [id number] Other 60 110 100 Red Blood Cells Cpd As1 100 Lr Unit [id number] Output: Stool 1800 1000 100 - Physical Exam Head: Positive for: Atraumatic Pupils: Positive for: PERRL Extroacular Muscles: Positive for: EOMI Mouth: Positive for: Moist Mucous Membranes Respiratory/Chest: Positive for: Clear to Auscultation, Good Air Exchange, Other (intubated ). Negative for: Respiratory Distress, Accessory Muscle Use, Wheezes, Rales, Rhonchi Cardiovascular: Positive for: Regular Rate and Rhythm Abdomen: Positive for: Feeding Tubes. Negative for: Tenderness, Distention Upper Extremity: Positive for: Edema Lower Extremity: Positive for: Edema, Other (s/p left AKA, wound of surgical site with wound vac ) Neurological: Positive for: Other (Intubated and sedated ) Skin: Positive for: Warm, Dry Psychiatric: Positive for: Alert - Medications Active Medications: Active Medications Generic Name Dose Route Start Last Admin Trade Name Freq PRN Reason Stop Dose Admin Acetaminophen 650 mg 05/13/17 09:40 05/16/17 12:23 Tylenol 650mg/20.3ml Solution Ud PO 650 mg Q6 PRN Administration Fever >100.4 F Albumin Human 12.5 gm 05/13/17 12:00 05/15/17 11:45 Albumin Human 5% (12.5 Gm/250 Ml) IV 12.5 gm MWF PRN Administration hypotension Apixaban 5 mg 05/13/17 10:00 05/15/17 19:20 Eliquis PO 5 mg BID ELINA Administration Brimonidine Tartrate 1 ml 04/12/17 10:00 05/16/17 10:00 Alphagan 0.2% Opht OU 1 applic TID ELINA Administration Collagenase 0 gm 05/12/17 11:15 05/16/17 12:13 Santyl TOP 1 applic DAILY ELINA Administration Epoetin Maxwell 10,000 unit 04/27/17 12:00 05/15/17 11:11 Procrit IV 10,000 unit MWF ELINA Administration Ergocalciferol 1 cap 04/11/17 22:30 05/09/17 21:48 Drisdol 50,000 Intl Units Cap PO 1 cap Q7D ELINA Administration Glucagon 1 mg 04/19/17 08:20 05/02/17 22:26 Glucagen Diagnostic Kit IM 1 mg STAT PRN Administration Hypoglycemia Protocol Protocol Hydromorphone HCl 0.5 mg 05/13/17 08:45 Dilaudid IVP Q6H PRN Pain, severe (8-10) Cefepime HCl 1 gm in 50 mls @ 100 mls/hr 05/12/17 10:45 05/16/17 11:40 Maxipime Iv 1 Gm Premix IVPB 100 mls/hr Q24H ELINA Administration Linezolid 600 mg in 300 mls @ 200 mls/hr 05/12/17 22:00 05/16/17 10:00 Zyvox 600mg/300ml D5w IVPB 200 mls/hr Q12 ELINA Administration Propofol 1,000 mg in 100 mls @ 1.762 mls/hr 05/13/17 15:41 05/13/17 20:00 Diprivan IV 10 mcg/kg/min .Q24H PRN 3.524 mls/hr TITRATE PER MD ORDER Titration Protocol 5 MCG/KG/MIN Micafungin Sodium 100 mg/ 100 mls @ 100 mls/hr 05/14/17 20:00 05/15/17 20:14 Sodium Chloride IV 100 mls/hr Q24H ELINA Administration Norepinephrine Bitartrate 8 mg 250 mls @ 7.5 mls/hr 05/16/17 07:13 05/16/17 08:00 / Sodium Chloride IV 4 mcg/min .Q24H PRN 7.5 mls/hr TITRATE PER MD ORDER Administration Protocol 4 MCG/MIN Insulin Glargine 10 unit 05/14/17 22:00 05/16/17 12:11 Lantus SC Not Given AMHS ELINA Insulin Human Regular 0 unit 05/14/17 21:05 05/16/17 12:22 Novolin R SC 4 unit Q4 ELINA Administration Protocol Latanoprost 0.02 ml 04/12/17 22:00 05/15/17 22:27 Xalatan Opht OU 0.02 ml HS ELINA Administration Midodrine 10 mg 04/27/17 11:04 05/09/17 11:02 Proamatine PO 10 mg ONCE PRN Administration Diastolic blood pressure Nystatin 1 gm 05/11/17 15:51 05/16/17 12:12 Nystop Topical Powder TOP 1 applic Q8H ELINA Administration Pantoprazole Sodium 40 mg 04/18/17 10:00 05/16/17 12:26 Protonix Susp PO 40 mg DAILY ELINA Administration Potassium Phos/Sodium Phos 1 pkt 05/13/17 09:00 05/16/17 09:00 Neutra-Phos PO 1 pkt BIDPC ELINA Administration Rosuvastatin Calcium 10 mg 04/12/17 22:00 05/15/17 22:26 Crestor PO 10 mg HS ELINA Administration Thiamine HCl 100 mg 04/11/17 22:30 05/16/17 06:05 Vitamin B1 Inj IV 100 mg Q8H ELINA Administration Timolol Maleate 1 drop 04/12/17 10:00 05/16/17 10:00 Timoptic 0.5% Ophth Soln OU 1 drop BID ELINA Administration Vitamin B Complex/Vit C/Folic Acid 1 tab 04/12/17 08:00 05/16/17 12:25 Nephro-Alonzo PO 1 tab 0800 ELINA Administration - Patient Studies Lab Studies: Microbiology Studies 05/10/17 12:41 Gram Stain - Final Other: Please Indicate Tissue Culture - Final No growth. 05/11/17 10:56 Blood Culture - Final Blood-During Dialysis NO GROWTH AFTER 5 DAYS Gram Stain - Final TEST NOT PERFORMED Lab Studies 05/16/17 05/16/17 05/16/17 Range/Units 11:36 08:30 08:30 WBC 36.2 H (4.8-10.8) K/uL RBC 2.73 L (3.80-5.20) Mil/uL Hgb 8.8 L D (11.0-16.0) g/dL Hct 25.7 L (34.0-47.0) % MCV 94.0 D (81.0-99.0) fL MCH 32.3 H (27.0-31.0) pg MCHC 34.3 (33.0-37.0) g/dL RDW 16.5 H (11.5-14.5) % Plt Count 338 (130-400) K/uL MPV 10.6 (7.2-11.7) fL Neut % (Auto) 85.6 H (50.0-75.0) % Lymph % (Auto) 7.9 L (20.0-40.0) % [place] % (Auto) 4.6 (0.0-10.0) % Eos % (Auto) 1.1 (0.0-4.0) % Baso % (Auto) 0.8 (0.0-2.0) % Neut # 30.9 H (1.8-7.0) K/uL Lymph # 2.9 (1.0-4.3) K/uL [place] # 1.7 H (0.0-0.8) K/uL Eos # 0.4 (0.0-0.7) K/uL Baso # 0.3 H (0.0-0.2) K/uL Neutrophils % (Manual) 84 H (50-75) % Band Neutrophils % 3 H (0-2) % Lymphocytes % (Manual) 7 L (20-40) % Monocytes % (Manual) 5 (0-10) % Eosinophils % (Manual) 1 (0-4) % Nucleated RBC % 3 H (0-0) % Platelet Estimate Normal (NORMAL) Polychromasia Slight Hypochromasia (manual) Slight Poikilocytosis (manual Slight Anisocytosis (manual) Slight Microcytosis (manual) Slight Macrocytosis (manual) Slight Ovalocytes Slight Schistocytes Slight PT (9.7-12.2) SECONDS INR APTT (21-34) SECONDS Puncture Site pCO2 (35-45) mm/Hg pO2 (80-100) mm/Hg HCO3 (21-28) mmol/L ABG pH (7.35-7.45) ABG Total CO2 (22-28) mmol/L ABG O2 Saturation (95-98) % ABG Base Excess (-2.0-3.0) mmol/L ABG Hemoglobin (11.7-17.4) g/dL ABG Carboxyhemoglobin (0.5-1.5) % POC ABG HHb (Measured) (0.0-5.0) % ABG Methemoglobin (0.0-3.0) % Joey Test A-a O2 Difference mm/Hg Respiratory Index Hgb O2 Saturation (95.0-98.0) % Vent Mode FiO2 % Pressure Support CPAP Sodium 134 (132-148) mmol/L Potassium 3.9 (3.6-5.2) mmol/L Chloride 101 (98-107) mmol/L Carbon Dioxide 21 L (22-30) mmol/L Anion Gap 16 (10-20) BUN 46 H (7-17) mg/dL Creatinine 2.0 H (0.7-1.2) mg/dL Est GFR ( Amer) 30 Est GFR (Non-Af Amer) 25 POC Glucose (mg/dL) 288 H (65-110) mg/dL Random Glucose 188 H (65-105) mg/dL Calcium 6.8 L (8.6-10.4) mg/dl Phosphorus 2.5 (2.5-4.5) mg/dL Magnesium 1.7 (1.6-2.3) mg/dL Total Bilirubin 0.8 (0.2-1.3) mg/dL AST 20 (14-36) U/L ALT 22 (9-52) U/L Alkaline Phosphatase 247 H (38-126) U/L Total Protein 4.0 L (6.3-8.3) g/dL Albumin 1.8 L (3.5-5.0) g/dL Globulin 2.2 (2.2-3.9) gm/dL Albumin/Globulin Ratio 0.8 L (1.0-2.1) Blood Type Antibody Screen 05/16/17 05/16/17 05/16/17 Range/Units 07:38 06:58 06:58 WBC (4.8-10.8) K/uL RBC (3.80-5.20) Mil/uL Hgb (11.0-16.0) g/dL Hct (34.0-47.0) % MCV (81.0-99.0) fL MCH (27.0-31.0) pg MCHC (33.0-37.0) g/dL RDW (11.5-14.5) % Plt Count (130-400) K/uL MPV (7.2-11.7) fL Neut % (Auto) (50.0-75.0) % Lymph % (Auto) (20.0-40.0) % [place] % (Auto) (0.0-10.0) % Eos % (Auto) (0.0-4.0) % Baso % (Auto) (0.0-2.0) % Neut # (1.8-7.0) K/uL Lymph # (1.0-4.3) K/uL [place] # (0.0-0.8) K/uL Eos # (0.0-0.7) K/uL Baso # (0.0-0.2) K/uL Neutrophils % (Manual) (50-75) % Band Neutrophils % (0-2) % Lymphocytes % (Manual) (20-40) % Monocytes % (Manual) (0-10) % Eosinophils % (Manual) (0-4) % Nucleated RBC % (0-0) % Platelet Estimate (NORMAL) Polychromasia Hypochromasia (manual) Poikilocytosis (manual Anisocytosis (manual) Microcytosis (manual) Macrocytosis (manual) Ovalocytes Schistocytes PT 14.8 H (9.7-12.2) SECONDS INR 1.3 APTT 30 (21-34) SECONDS Puncture Site pCO2 (35-45) mm/Hg pO2 (80-100) mm/Hg HCO3 (21-28) mmol/L ABG pH (7.35-7.45) ABG Total CO2 (22-28) mmol/L ABG O2 Saturation (95-98) % ABG Base Excess (-2.0-3.0) mmol/L ABG Hemoglobin (11.7-17.4) g/dL ABG Carboxyhemoglobin (0.5-1.5) % POC ABG HHb (Measured) (0.0-5.0) % ABG Methemoglobin (0.0-3.0) % Joey Test A-a O2 Difference mm/Hg Respiratory Index Hgb O2 Saturation (95.0-98.0) % Vent Mode FiO2 % Pressure Support CPAP Sodium 135 (132-148) mmol/L Potassium 3.4 L (3.6-5.2) mmol/L Chloride 103 (98-107) mmol/L Carbon Dioxide 22 (22-30) mmol/L Anion Gap 13 (10-20) BUN 46 H (7-17) mg/dL Creatinine 2.0 H (0.7-1.2) mg/dL Est GFR ( Amer) 30 Est GFR (Non-Af Amer) 25 POC Glucose (mg/dL) 164 H (65-110) mg/dL Random Glucose 180 H (65-105) mg/dL Calcium 6.6 L (8.6-10.4) mg/dl Phosphorus 2.4 L (2.5-4.5) mg/dL Magnesium 1.7 (1.6-2.3) mg/dL Total Bilirubin 0.7 (0.2-1.3) mg/dL AST 23 (14-36) U/L ALT 18 (9-52) U/L Alkaline Phosphatase 249 H D (38-126) U/L Total Protein 3.3 L (6.3-8.3) g/dL Albumin 1.7 L D (3.5-5.0) g/dL Globulin 1.5 L (2.2-3.9) gm/dL Albumin/Globulin Ratio 1.1 (1.0-2.1) Blood Type Antibody Screen 05/16/17 05/16/17 05/16/17 Range/Units 05:29 04:21 00:30 WBC (4.8-10.8) K/uL RBC (3.80-5.20) Mil/uL Hgb (11.0-16.0) g/dL Hct (34.0-47.0) % MCV (81.0-99.0) fL MCH (27.0-31.0) pg MCHC (33.0-37.0) g/dL RDW (11.5-14.5) % Plt Count (130-400) K/uL MPV (7.2-11.7) fL Neut % (Auto) (50.0-75.0) % Lymph % (Auto) (20.0-40.0) % [place] % (Auto) (0.0-10.0) % Eos % (Auto) (0.0-4.0) % Baso % (Auto) (0.0-2.0) % Neut # (1.8-7.0) K/uL Lymph # (1.0-4.3) K/uL [place] # (0.0-0.8) K/uL Eos # (0.0-0.7) K/uL Baso # (0.0-0.2) K/uL Neutrophils % (Manual) (50-75) % Band Neutrophils % (0-2) % Lymphocytes % (Manual) (20-40) % Monocytes % (Manual) (0-10) % Eosinophils % (Manual) (0-4) % Nucleated RBC % (0-0) % Platelet Estimate (NORMAL) Polychromasia Hypochromasia (manual) Poikilocytosis (manual Anisocytosis (manual) Microcytosis (manual) Macrocytosis (manual) Ovalocytes Schistocytes PT (9.7-12.2) SECONDS INR APTT (21-34) SECONDS Puncture Site Rr pCO2 27 L (35-45) mm/Hg pO2 173 H (80-100) mm/Hg HCO3 22.4 (21-28) mmol/L ABG pH 7.47 H (7.35-7.45) ABG Total CO2 20.5 L (22-28) mmol/L ABG O2 Saturation 99.9 H (95-98) % ABG Base Excess -3.2 L (-2.0-3.0) mmol/L ABG Hemoglobin 8.9 L (11.7-17.4) g/dL ABG Carboxyhemoglobin 2.1 H (0.5-1.5) % POC ABG HHb (Measured) 0.1 (0.0-5.0) % ABG Methemoglobin 1.3 (0.0-3.0) % Joey Test Pos A-a O2 Difference 78.0 mm/Hg Respiratory Index 0.5 Hgb O2 Saturation 96.5 (95.0-98.0) % Vent Mode Cpap FiO2 40.0 % Pressure Support 15 CPAP 5 Sodium (132-148) mmol/L Potassium (3.6-5.2) mmol/L Chloride (98-107) mmol/L Carbon Dioxide (22-30) mmol/L Anion Gap (10-20) BUN (7-17) mg/dL Creatinine (0.7-1.2) mg/dL Est GFR ( Amer) Est GFR (Non-Af Amer) POC Glucose (mg/dL) 216 H (65-110) mg/dL Random Glucose (65-105) mg/dL Calcium (8.6-10.4) mg/dl Phosphorus (2.5-4.5) mg/dL Magnesium (1.6-2.3) mg/dL Total Bilirubin (0.2-1.3) mg/dL AST (14-36) U/L ALT (9-52) U/L Alkaline Phosphatase (38-126) U/L Total Protein (6.3-8.3) g/dL Albumin (3.5-5.0) g/dL Globulin (2.2-3.9) gm/dL Albumin/Globulin Ratio (1.0-2.1) Blood Type B POSITIVE Antibody Screen Negative 05/15/17 05/15/17 05/15/17 Range/Units 23:41 22:46 20:04 WBC 28.1 H (4.8-10.8) K/uL RBC 2.18 L (3.80-5.20) Mil/uL Hgb 6.8 L (11.0-16.0) g/dL Hct 21.2 L (34.0-47.0) % MCV 97.1 (81.0-99.0) fL MCH 31.2 H (27.0-31.0) pg MCHC 32.2 L (33.0-37.0) g/dL RDW 17.9 H (11.5-14.5) % Plt Count 306 (130-400) K/uL MPV 10.3 (7.2-11.7) fL Neut % (Auto) 85.5 H (50.0-75.0) % Lymph % (Auto) 7.5 L (20.0-40.0) % [place] % (Auto) 5.7 (0.0-10.0) % Eos % (Auto) 1.2 (0.0-4.0) % Baso % (Auto) 0.1 (0.0-2.0) % Neut # 24.0 H (1.8-7.0) K/uL Lymph # 2.1 (1.0-4.3) K/uL [place] # 1.6 H (0.0-0.8) K/uL Eos # 0.3 (0.0-0.7) K/uL Baso # 0.0 (0.0-0.2) K/uL Neutrophils % (Manual) 81 H (50-75) % Band Neutrophils % 2 (0-2) % Lymphocytes % (Manual) 8 L (20-40) % Monocytes % (Manual) 8 (0-10) % Eosinophils % (Manual) 1 (0-4) % Nucleated RBC % 1 H (0-0) % Platelet Estimate Normal (NORMAL) Polychromasia Slight Hypochromasia (manual) Slight Poikilocytosis (manual Anisocytosis (manual) Slight Microcytosis (manual) Macrocytosis (manual) Slight Ovalocytes Slight Schistocytes PT (9.7-12.2) SECONDS INR APTT (21-34) SECONDS Puncture Site pCO2 (35-45) mm/Hg pO2 (80-100) mm/Hg HCO3 (21-28) mmol/L ABG pH (7.35-7.45) ABG Total CO2 (22-28) mmol/L ABG O2 Saturation (95-98) % ABG Base Excess (-2.0-3.0) mmol/L ABG Hemoglobin (11.7-17.4) g/dL ABG Carboxyhemoglobin (0.5-1.5) % POC ABG HHb (Measured) (0.0-5.0) % ABG Methemoglobin (0.0-3.0) % Joey Test A-a O2 Difference mm/Hg Respiratory Index Hgb O2 Saturation (95.0-98.0) % Vent Mode FiO2 % Pressure Support CPAP Sodium (132-148) mmol/L Potassium (3.6-5.2) mmol/L Chloride (98-107) mmol/L Carbon Dioxide (22-30) mmol/L Anion Gap (10-20) BUN (7-17) mg/dL Creatinine (0.7-1.2) mg/dL Est GFR ( Amer) Est GFR (Non-Af Amer) POC Glucose (mg/dL) 330 H 279 H (65-110) mg/dL Random Glucose (65-105) mg/dL Calcium (8.6-10.4) mg/dl Phosphorus (2.5-4.5) mg/dL Magnesium (1.6-2.3) mg/dL Total Bilirubin (0.2-1.3) mg/dL AST (14-36) U/L ALT (9-52) U/L Alkaline Phosphatase (38-126) U/L Total Protein (6.3-8.3) g/dL Albumin (3.5-5.0) g/dL Globulin (2.2-3.9) gm/dL Albumin/Globulin Ratio (1.0-2.1) Blood Type Antibody Screen 05/15/17 Range/Units 16:14 WBC (4.8-10.8) K/uL RBC (3.80-5.20) Mil/uL Hgb (11.0-16.0) g/dL Hct (34.0-47.0) % MCV (81.0-99.0) fL MCH (27.0-31.0) pg MCHC (33.0-37.0) g/dL RDW (11.5-14.5) % Plt Count (130-400) K/uL MPV (7.2-11.7) fL Neut % (Auto) (50.0-75.0) % Lymph % (Auto) (20.0-40.0) % [place] % (Auto) (0.0-10.0) % Eos % (Auto) (0.0-4.0) % Baso % (Auto) (0.0-2.0) % Neut # (1.8-7.0) K/uL Lymph # (1.0-4.3) K/uL [place] # (0.0-0.8) K/uL Eos # (0.0-0.7) K/uL Baso # (0.0-0.2) K/uL Neutrophils % (Manual) (50-75) % Band Neutrophils % (0-2) % Lymphocytes % (Manual) (20-40) % Monocytes % (Manual) (0-10) % Eosinophils % (Manual) (0-4) % Nucleated RBC % (0-0) % Platelet Estimate (NORMAL) Polychromasia Hypochromasia (manual) Poikilocytosis (manual Anisocytosis (manual) Microcytosis (manual) Macrocytosis (manual) Ovalocytes Schistocytes PT (9.7-12.2) SECONDS INR APTT (21-34) SECONDS Puncture Site pCO2 (35-45) mm/Hg pO2 (80-100) mm/Hg HCO3 (21-28) mmol/L ABG pH (7.35-7.45) ABG Total CO2 (22-28) mmol/L ABG O2 Saturation (95-98) % ABG Base Excess (-2.0-3.0) mmol/L ABG Hemoglobin (11.7-17.4) g/dL ABG Carboxyhemoglobin (0.5-1.5) % POC ABG HHb (Measured) (0.0-5.0) % ABG Methemoglobin (0.0-3.0) % Joey Test A-a O2 Difference mm/Hg Respiratory Index Hgb O2 Saturation (95.0-98.0) % Vent Mode FiO2 % Pressure Support CPAP Sodium (132-148) mmol/L Potassium (3.6-5.2) mmol/L Chloride (98-107) mmol/L Carbon Dioxide (22-30) mmol/L Anion Gap (10-20) BUN (7-17) mg/dL Creatinine (0.7-1.2) mg/dL Est GFR ( Amer) Est GFR (Non-Af Amer) POC Glucose (mg/dL) 305 H (65-110) mg/dL Random Glucose (65-105) mg/dL Calcium (8.6-10.4) mg/dl Phosphorus (2.5-4.5) mg/dL Magnesium (1.6-2.3) mg/dL Total Bilirubin (0.2-1.3) mg/dL AST (14-36) U/L ALT (9-52) U/L Alkaline Phosphatase (38-126) U/L Total Protein (6.3-8.3) g/dL Albumin (3.5-5.0) g/dL Globulin (2.2-3.9) gm/dL Albumin/Globulin Ratio (1.0-2.1) Blood Type Antibody Screen Laboratory Results - last 24 hr 05/15/17 05/15/17 05/15/17 16:14 20:04 22:46 WBC 28.1 H RBC 2.18 L Hgb 6.8 L Hct 21.2 L MCV 97.1 MCH 31.2 H MCHC 32.2 L RDW 17.9 H Plt Count 306 MPV 10.3 Neut % (Auto) 85.5 H Lymph % (Auto) 7.5 L [place] % (Auto) 5.7 Eos % (Auto) 1.2 Baso % (Auto) 0.1 Neut # 24.0 H Lymph # 2.1 [place] # 1.6 H Eos # 0.3 Baso # 0.0 Neutrophils % (Manual) 81 H Band Neutrophils % 2 Lymphocytes % (Manual) 8 L Monocytes % (Manual) 8 Eosinophils % (Manual) 1 Nucleated RBC % 1 H Platelet Estimate Normal Polychromasia Slight Hypochromasia (manual) Slight Poikilocytosis (manual Anisocytosis (manual) Slight Microcytosis (manual) Macrocytosis (manual) Slight Ovalocytes Slight Schistocytes PT INR APTT Puncture Site pCO2 pO2 HCO3 ABG pH ABG Total CO2 ABG O2 Saturation ABG Base Excess ABG Hemoglobin ABG Carboxyhemoglobin POC ABG HHb (Measured) ABG Methemoglobin Joey Test A-a O2 Difference Respiratory Index Hgb O2 Saturation Vent Mode FiO2 Pressure Support CPAP Sodium Potassium Chloride Carbon Dioxide Anion Gap BUN Creatinine Est GFR ( Amer) Est GFR (Non-Af Amer) POC Glucose (mg/dL) 305 H 279 H Random Glucose Calcium Phosphorus Magnesium Total Bilirubin AST ALT Alkaline Phosphatase Total Protein Albumin Globulin Albumin/Globulin Ratio Blood Type Antibody Screen 05/15/17 05/16/17 05/16/17 23:41 00:30 04:21 WBC RBC Hgb Hct MCV MCH MCHC RDW Plt Count MPV Neut % (Auto) Lymph % (Auto) [place] % (Auto) Eos % (Auto) Baso % (Auto) Neut # Lymph # [place] # Eos # Baso # Neutrophils % (Manual) Band Neutrophils % Lymphocytes % (Manual) Monocytes % (Manual) Eosinophils % (Manual) Nucleated RBC % Platelet Estimate Polychromasia Hypochromasia (manual) Poikilocytosis (manual Anisocytosis (manual) Microcytosis (manual) Macrocytosis (manual) Ovalocytes Schistocytes PT INR APTT Puncture Site pCO2 pO2 HCO3 ABG pH ABG Total CO2 ABG O2 Saturation ABG Base Excess ABG Hemoglobin ABG Carboxyhemoglobin POC ABG HHb (Measured) ABG Methemoglobin Joey Test A-a O2 Difference Respiratory Index Hgb O2 Saturation Vent Mode FiO2 Pressure Support CPAP Sodium Potassium Chloride Carbon Dioxide Anion Gap BUN Creatinine Est GFR ( Amer) Est GFR (Non-Af Amer) POC Glucose (mg/dL) 330 H 216 H Random Glucose Calcium Phosphorus Magnesium Total Bilirubin AST ALT Alkaline Phosphatase Total Protein Albumin Globulin Albumin/Globulin Ratio Blood Type B POSITIVE Antibody Screen Negative 05/16/17 05/16/17 05/16/17 05:29 06:58 06:58 WBC RBC Hgb Hct MCV MCH MCHC RDW Plt Count MPV Neut % (Auto) Lymph % (Auto) [place] % (Auto) Eos % (Auto) Baso % (Auto) Neut # Lymph # [place] # Eos # Baso # Neutrophils % (Manual) Band Neutrophils % Lymphocytes % (Manual) Monocytes % (Manual) Eosinophils % (Manual) Nucleated RBC % Platelet Estimate Polychromasia Hypochromasia (manual) Poikilocytosis (manual Anisocytosis (manual) Microcytosis (manual) Macrocytosis (manual) Ovalocytes Schistocytes PT 14.8 H INR 1.3 APTT 30 Puncture Site Rr pCO2 27 L pO2 173 H HCO3 22.4 ABG pH 7.47 H ABG Total CO2 20.5 L ABG O2 Saturation 99.9 H ABG Base Excess -3.2 L ABG Hemoglobin 8.9 L ABG Carboxyhemoglobin 2.1 H POC ABG HHb (Measured) 0.1 ABG Methemoglobin 1.3 Joey Test Pos A-a O2 Difference 78.0 Respiratory Index 0.5 Hgb O2 Saturation 96.5 Vent Mode Cpap FiO2 40.0 Pressure Support 15 CPAP 5 Sodium 135 Potassium 3.4 L Chloride 103 Carbon Dioxide 22 Anion Gap 13 BUN 46 H Creatinine 2.0 H Est GFR ( Amer) 30 Est GFR (Non-Af Amer) 25 POC Glucose (mg/dL) Random Glucose 180 H Calcium 6.6 L Phosphorus 2.4 L Magnesium 1.7 Total Bilirubin 0.7 AST 23 ALT 18 Alkaline Phosphatase 249 H D Total Protein 3.3 L Albumin 1.7 L D Globulin 1.5 L Albumin/Globulin Ratio 1.1 Blood Type Antibody Screen 05/16/17 05/16/17 05/16/17 07:38 08:30 08:30 WBC 36.2 H RBC 2.73 L Hgb 8.8 L D Hct 25.7 L MCV 94.0 D MCH 32.3 H MCHC 34.3 RDW 16.5 H Plt Count 338 MPV 10.6 Neut % (Auto) 85.6 H Lymph % (Auto) 7.9 L [place] % (Auto) 4.6 Eos % (Auto) 1.1 Baso % (Auto) 0.8 Neut # 30.9 H Lymph # 2.9 [place] # 1.7 H Eos # 0.4 Baso # 0.3 H Neutrophils % (Manual) 84 H Band Neutrophils % 3 H Lymphocytes % (Manual) 7 L Monocytes % (Manual) 5 Eosinophils % (Manual) 1 Nucleated RBC % 3 H Platelet Estimate Normal Polychromasia Slight Hypochromasia (manual) Slight Poikilocytosis (manual Slight Anisocytosis (manual) Slight Microcytosis (manual) Slight Macrocytosis (manual) Slight Ovalocytes Slight Schistocytes Slight PT INR APTT Puncture Site pCO2 pO2 HCO3 ABG pH ABG Total CO2 ABG O2 Saturation ABG Base Excess ABG Hemoglobin ABG Carboxyhemoglobin POC ABG HHb (Measured) ABG Methemoglobin Joey Test A-a O2 Difference Respiratory Index Hgb O2 Saturation Vent Mode FiO2 Pressure Support CPAP Sodium 134 Potassium 3.9 Chloride 101 Carbon Dioxide 21 L Anion Gap 16 BUN 46 H Creatinine 2.0 H Est GFR ( Amer) 30 Est GFR (Non-Af Amer) 25 POC Glucose (mg/dL) 164 H Random Glucose 188 H Calcium 6.8 L Phosphorus 2.5 Magnesium 1.7 Total Bilirubin 0.8 AST 20 ALT 22 Alkaline Phosphatase 247 H Total Protein 4.0 L Albumin 1.8 L Globulin 2.2 Albumin/Globulin Ratio 0.8 L Blood Type Antibody Screen 05/16/17 11:36 WBC RBC Hgb Hct MCV MCH MCHC RDW Plt Count MPV Neut % (Auto) Lymph % (Auto) [place] % (Auto) Eos % (Auto) Baso % (Auto) Neut # Lymph # [place] # Eos # Baso # Neutrophils % (Manual) Band Neutrophils % Lymphocytes % (Manual) Monocytes % (Manual) Eosinophils % (Manual) Nucleated RBC % Platelet Estimate Polychromasia Hypochromasia (manual) Poikilocytosis (manual Anisocytosis (manual) Microcytosis (manual) Macrocytosis (manual) Ovalocytes Schistocytes PT INR APTT Puncture Site pCO2 pO2 HCO3 ABG pH ABG Total CO2 ABG O2 Saturation ABG Base Excess ABG Hemoglobin ABG Carboxyhemoglobin POC ABG HHb (Measured) ABG Methemoglobin Joey Test A-a O2 Difference Respiratory Index Hgb O2 Saturation Vent Mode FiO2 Pressure Support CPAP Sodium Potassium Chloride Carbon Dioxide Anion Gap BUN Creatinine Est GFR ( Amer) Est GFR (Non-Af Amer) POC Glucose (mg/dL) 288 H Random Glucose Calcium Phosphorus Magnesium Total Bilirubin AST ALT Alkaline Phosphatase Total Protein Albumin Globulin Albumin/Globulin Ratio Blood Type Antibody Screen Fingerstick Blood Sugar Results: 288 Assessment/Plan (1) Diabetes mellitus Assessment and plan: 71-year-old female with a history of hypertension, diabetes, hypercholesterolemia, peripheral vascular disease, left below-knee and petition , most likely infected stump at this time. End-stage renal disease on dialysis. Hypertension. Unclear at this time. Most likely sepsis. Currently an antibiotic. Will repeat this lactate level again. Less likely is ischemic bowel. Abdomen is benign at this time. Continue to monitor. The lactate is normal patient can be transferred to floor. Current Visit: Yes Status: Acute (2) History of CHF (congestive heart failure) Current Visit: Yes Status: Acute (3) S/P BKA (below knee amputation) Current Visit: Yes Status: Acute Priority: High
--- NOTE | 2017-05-16 15:08 | CP.PCM.PN ---
Subjective - Date & Time of Evaluation Date of Evaluation: 05/16/17 Time of Evaluation: 10:30 - Subjective Subjective: General surgery progress note for Dr. Lucrecia Merrill, PGY-1 Pt S & E at bedside. Pt scheduled for OR today for permacath placement as per family's wishes. Decision to perform bedside. RIJ triple lumen dialysis catheter due to patient instability and anesthesia's request. Objective - Vital Signs/Intake and Output Vital Signs (last 24 hours): Temp Pulse Resp BP Pulse Ox 100.3 F H 128 H 22 130/77 100 05/16/17 13:35 05/16/17 13:35 05/16/17 13:35 05/16/17 13:35 05/16/17 11:00 Intake and Output: 05/16/17 05/16/17 06:59 18:59 Intake Total 1570 156.4 Output Total 1000 100 Balance 570 56.4 - Medications Medications: Current Medications Acetaminophen (Tylenol 650mg/20.3ml Solution Ud) 650 mg PO Q6 PRN PRN Reason: Fever >100.4 F Last Admin: 05/16/17 12:23 Dose: 650 mg Albumin Human (Albumin Human 5% (12.5 Gm/250 Ml)) 12.5 gm IV MWF PRN PRN Reason: hypotension Last Admin: 05/15/17 11:45 Dose: 12.5 gm Apixaban (Eliquis) 5 mg PO BID [facility] Last Admin: 05/15/17 19:20 Dose: 5 mg Brimonidine Tartrate (Alphagan 0.2% Opht) 1 ml OU TID [facility] Last Admin: 05/16/17 10:00 Dose: 1 applic Collagenase (Santyl) 0 gm TOP DAILY [facility] Last Admin: 05/16/17 12:13 Dose: 1 applic Epoetin Maxwell (Procrit) 10,000 unit IV MWF [facility] Last Admin: 05/15/17 11:11 Dose: 10,000 unit Ergocalciferol (Drisdol 50,000 Intl Units Cap) 1 cap PO Q7D [facility] Last Admin: 05/09/17 21:48 Dose: 1 cap Glucagon (Glucagen Diagnostic Kit) 1 mg IM STAT PRN; Protocol PRN Reason: Hypoglycemia Protocol Last Admin: 05/02/17 22:26 Dose: 1 mg Hydromorphone HCl (Dilaudid) 0.5 mg IVP Q6H PRN PRN Reason: Pain, severe (8-10) Cefepime HCl (Maxipime Iv 1 Gm Premix) 1 gm in 50 mls @ 100 mls/hr IVPB Q24H [facility] Last Admin: 05/16/17 11:40 Dose: 100 mls/hr Linezolid (Zyvox 600mg/300ml D5w) 600 mg in 300 mls @ 200 mls/hr IVPB Q12 [facility] Last Admin: 05/16/17 10:00 Dose: 200 mls/hr Propofol (Diprivan) 1,000 mg in 100 mls @ 1.762 mls/hr IV .Q24H PRN; Protocol; 5 MCG/KG/MIN PRN Reason: TITRATE PER MD ORDER Last Titration: 05/13/17 20:00 Dose: 10 mcg/kg/min, 3.524 mls/hr Micafungin Sodium 100 mg/ (Sodium Chloride) 100 mls @ 100 mls/hr IV Q24H [facility] Last Admin: 05/15/17 20:14 Dose: 100 mls/hr Norepinephrine Bitartrate 8 mg (/ Sodium Chloride) 250 mls @ 7.5 mls/hr IV .Q24H PRN; Protocol; 4 MCG/MIN PRN Reason: TITRATE PER MD ORDER Last Admin: 05/16/17 08:00 Dose: 4 mcg/min, 7.5 mls/hr Insulin Glargine (Lantus) 10 unit SC AMHS [facility] Last Admin: 05/16/17 12:11 Dose: Not Given Insulin Human Regular (Novolin R) 0 unit SC Q4 [facility] PRN Reason: Protocol Last Admin: 05/16/17 12:22 Dose: 4 unit Latanoprost (Xalatan Opht) 0.02 ml OU HS [facility] Last Admin: 05/15/17 22:27 Dose: 0.02 ml Midodrine (Proamatine) 10 mg PO ONCE PRN PRN Reason: Diastolic blood pressure Last Admin: 05/09/17 11:02 Dose: 10 mg Nystatin (Nystop Topical Powder) 1 gm TOP Q8H [facility] Last Admin: 05/16/17 12:12 Dose: 1 applic Pantoprazole Sodium (Protonix Susp) 40 mg PO DAILY [facility] Last Admin: 05/16/17 12:26 Dose: 40 mg Potassium Phos/Sodium Phos (Neutra-Phos) 1 pkt PO BIDPC [facility] Last Admin: 05/16/17 09:00 Dose: 1 pkt Rosuvastatin Calcium (Crestor) 10 mg PO HS [facility] Last Admin: 05/15/17 22:26 Dose: 10 mg Thiamine HCl (Vitamin B1 Inj) 100 mg IV Q8H [facility] Last Admin: 05/16/17 06:05 Dose: 100 mg Timolol Maleate (Timoptic 0.5% Ophth Soln) 1 drop OU BID [facility] Last Admin: 05/16/17 10:00 Dose: 1 drop Vitamin B Complex/Vit C/Folic Acid (Nephro-Alonzo) 1 tab PO 0800 [facility] Last Admin: 05/16/17 12:25 Dose: 1 tab - Labs Labs: 05/16/17 08:30 05/16/17 08:30 PT 14.8 SECONDS (9.7-12.2) H 05/16/17 06:58 INR 1.3 05/16/17 06:58 APTT 30 SECONDS (21-34) 05/16/17 06:58 - Constitutional Appears: Non-toxic, No Acute Distress - Head Exam Head Exam: ATRAUMATIC, NORMAL INSPECTION, NORMOCEPHALIC - ENT Exam ENT Exam: Mucous Membranes Moist, Normal Exam Additional comments: ET tube in place - Neck Exam Neck Exam: Normal Inspection - Respiratory Exam Respiratory Exam: NORMAL BREATHING PATTERN Additional comments: on mechanical vent - Cardiovascular Exam Cardiovascular Exam: Tachycardia, +S1, +S2 - GI/Abdominal Exam GI & Abdominal Exam: Soft - Rectal Exam Additional comments: rectal tube in place with maroon stool in collection system - Extremities Exam Extremities Exam: Normal Inspection - Neurological Exam Neurological Exam: absent: Alert, Awake, Oriented x3 - Psychiatric Exam Psychiatric exam: absent: Normal Affect, Normal Mood - Skin Skin Exam: Normal Color, Warm Assessment and Plan - Assessment and Plan (Free Text) Assessment: 71F w/ESRD requiring hemodialysis as per family request Plan: Triple lumen HD catheter insertion into RIJ performed at bedside. Sterile procedures performed with time out at bedside Procedure performed with attending at bedside All ports flushed with good return CXR done post procedure with good position as per Dr. Bobo Bo to use RIJ triple lumen HD catheter as per attending DW attending Desirae, PGY-1 Procedures - Dialysis Catheter Insertion:Hemo-Dialysis Catheter: Jugular Internal Right
[2017-05-16] MEDS: Micafungin 100 MG in Sodium Chloride 0.9% 100 ML IV SCH (19:44)
[2017-05-16] MEDS: Latanoprost 2.5 ml Opht Soln OU SCH (21:22)
[2017-05-16] MEDS: Ergocalciferol 50,000 Intl Units Cap PO SCH (22:02)
[2017-05-17] MEDS: (Novolin R) Insulin Human Regular 100 units/ml vial SC SCH ×6 (00:13→20:00)
[2017-05-17] MEDS: Nystatin 100,000 Units/gm Topical Pow(15 gm) TOP SCH ×4 (00:14→23:55)
[2017-05-17] MEDS: Thiamine 100 mg/ml Inj IV SCH ×3 (05:30→23:58)
[2017-05-17 06:57] LABS: BASO # 0.4 K/uL (0.0-0.2); BASO % 0.7 % (0.0-2.0); EOS # 0.4 K/uL (0.0-0.7); EOS % 0.8 % (0.0-4.0); HEMATOCRIT 33.3 % (34.0-47.0); LYMPH # 6.6 K/uL (1.0-4.3); LYMPH % 12.6 % (20.0-40.0); MEAN CELL VOLUME 94.4 fL (81.0-99.0); MEAN CORPUSCULAR HEMOGLOBIN 30.7 pg (27.0-31.0); MEAN CORPUSCULAR HGB CONC 32.5 g/dL (33.0-37.0); MONO # 1.9 K/uL (0.0-0.8); MONO % 3.6 % (0.0-10.0); NRBC % 3.4 % (0.0-2.0); PLATELET COUNT 347 K/uL (130-400); RED CELL DISTRIBUTION WIDTH 17.1 % (11.5-14.5)
[2017-05-17 07:05] LABS: WHITE BLOOD COUNT 52.7 K/uL (4.8-10.8)
[2017-05-17 07:27] LABS: ALB/GLOB RATIO 0.9 (1.0-2.1); CALCIUM 7.1 mg/dl (8.6-10.4); POTASSIUM 5.1 mmol/L (3.6-5.2); TOTAL PROTEIN 4.2 g/dL (6.3-8.3)
[2017-05-17] MEDS: Norepinephrine 8 MG in Sodium Chloride 0.9% 242 ML IV PRN ×3 (07:47→23:55)
[2017-05-17] MEDS: Multivitamin Vitamin B Complex (Nephro-Vite) Tab PO SCH (07:53)
[2017-05-17] MEDS ORDERED: Dextrose 50% VIAL Inj (50 ml) IV STA ×2 (08:05→16:15)
[2017-05-17] MEDS ORDERED: Dextrose 50% VIAL Inj (50 ml) IV ONE ×2 (08:07→16:15)
[2017-05-17 08:12] LABS: METAMYELOCYTE 1 % (0-0); MYELOCYTE 1 % (0-0); NEUTROPHIL 74 % (50-75); NUCLEATED RED BLOOD CELL 6 % (0-0); REACTIVE LYMPHOCYTES 2 % (0-0); TOTAL CELLS COUNTED 100
[2017-05-17 08:15] LABS: LARGE PLATELETS PRESENT
--- NOTE | 2017-05-17 09:14 | RAD ---
HISTORY: Follow up intubation COMPARISON: 05/16/2017. FINDINGS: The endotracheal tube terminates 2.5 cm proximal to the chinmay. The right PICC line terminates in the SVC. The right IJV catheter terminates in the right atrium PICC LUNGS: The right lung is well inflated and clear. No significant interval change in left lower lobe consolidation and moderate left pleural effusion. PLEURA: No significant pleural effusion identified, no pneumothorax apparent. CARDIOVASCULAR: Normal. OSSEOUS STRUCTURES: No significant abnormalities. VISUALIZED UPPER ABDOMEN: Normal. OTHER FINDINGS: None. IMPRESSION: Endotracheal tube terminates 2.5 cm proximal to the chinmay. Stable position of right PICC line and IJV catheter. No change in left lower lobe consolidation and moderate left pleural effusion. Follow-up to resolution is advised.
[2017-05-17] MEDS: Linezolid 600 mg in D5W 300 ml 600 MG/300 ML BAG IVPB SCH ×2 (09:51→21:50)
[2017-05-17] MEDS: (Lantus) Insulin Glargine, Recombinant SC SCH ×2 (09:52→22:00)
[2017-05-17] MEDS: Collagenase 250 Units/gm Ointment(30 gm) TOP SCH (09:54)
[2017-05-17] MEDS: Brimonidine 0.2% Opth Sol (5ml) OU SCH ×3 (09:54→17:17)
[2017-05-17] MEDS: Potassium & Sodium Phosphate PO SCH ×2 (09:55→17:18)
--- NOTE | 2017-05-17 11:29 | PN ---
LOCATION: ICU #5. SUBJECTIVE: This is a 71-year-old female, seen and examined in rounds, still orally intubated to vent on Levophed IV with very poor respond to painful stimuli, nonverbal stimuli. The patient is still tolerating PEG feeding well without any reported bleeding residual or resistant, still with period of some bloody bowel movement, and Flexi-Seal is still in place. The entire chart is reviewed including, but not limited to the most recent lab and radiology study results, current and the previous medication list, current and the previous medical events. Today's lab showed leukocytosis of , with low hemoglobin 10.8, low hematocrit 33.3, but normal platelet count with low CO2 content of 11 indicative of severe metabolic acidosis, which could be secondary to an infectious process, with BUN is 48 and increased creatinine to 2.4 with period of hypoglycemia 55 and low calcium 7.1, with excessive increase of AST to 3558 and ALT increased to 510 with elevated alkaline phosphatase, but normal total bilirubin indicative of hepatocellular injury, most likely secondary to infectious process, with low albumin 2.1. PHYSICAL EXAMINATION GENERAL: A 71-year-old female, intubated. VITAL SIGNS: Afebrile, with pulse of 128, with blood pressure of 64/46. HEENT: Showed pale, dry oral mucous membrane, nonicteric sclerae. LUNGS: Few scattered crepitation, decreased air entry at bases. HEART: Positive S1 and S2 with increased rate. ABDOMEN: Soft with mild generalized tenderness. No mass or organomegaly. No rebound tenderness or guarding. PEG tube is in place. EXTREMITIES: With generalized edematous changes. No clubbing or cyanosis. NEUROLOGIC: No new reported neurological deficits, sensory or motor. The patient is also scheduled for Perm-A-Cath placement insertion by the surgical team today. IMPRESSION: 1. Gastrointestinal bleeding, most likely drug-induced with traces of fresh and old blood rectally. 2. Malnutrition, failure to thrive, hypoalbuminemia. 3. Status post percutaneous endoscopic gastrostomy insertion. 4. Known history of pneumonia, leukocytosis, respiratory failure, the patient is intubated to vent. 5. Septicemia with metabolic acidosis, most likely secondary to above. 6. Known history of chronic renal failure, on hemodialysis. 7. Electrolyte imbalance secondary to above, most likely. SUGGESTIONS: 1. Continue current management. 2. Blood transfusion to keep hemoglobin around 10 gram percent. 3. Antireflux measures. 4. Further recommendation to follow. Karena Arias MD
[2017-05-17] MEDS: Cefepime IV 1 gm in Dextrose 1 GM/50 ML BAG IVPB SCH (11:32)
--- NOTE | 2017-05-17 11:57 | CP.PCM.PN ---
Subjective - Date & Time of Evaluation Date of Evaluation: 05/17/17 Time of Evaluation: 11:54 - Subjective Subjective: Progress note for Dr. Myrick's Service Pt seen and examined at bedside. She is s/p right IJ TLC placement done at bedside by Dr. Broussard 05/16/17. BP continues to be very labile. WBC count is 52.7. X-ray shows left lower lobe consolidation and pleural effusion. Pt is being managed with comfort measures. Objective - Vital Signs/Intake and Output Vital Signs (last 24 hours): Temp Pulse Resp BP Pulse Ox 99.5 F 134 H 16 135/48 L 100 05/17/17 08:00 05/17/17 11:00 05/17/17 11:00 05/17/17 11:00 05/17/17 11:00 Intake and Output: 05/17/17 05/17/17 06:59 18:59 Intake Total 1285.3 507.5 Output Total 100 Balance 1185.3 507.5 - Medications Medications: Current Medications Acetaminophen (Tylenol 650mg/20.3ml Solution Ud) 650 mg PO Q6 PRN PRN Reason: Fever >100.4 F Last Admin: 05/16/17 12:23 Dose: 650 mg Albumin Human (Albumin Human 5% (12.5 Gm/250 Ml)) 12.5 gm IV MWF PRN PRN Reason: hypotension Last Admin: 05/15/17 11:45 Dose: 12.5 gm Apixaban (Eliquis) 5 mg PO BID [facility] Last Admin: 05/15/17 19:20 Dose: 5 mg Brimonidine Tartrate (Alphagan 0.2% Opht) 1 ml OU TID [facility] Last Admin: 05/17/17 09:54 Dose: 1 applic Collagenase (Santyl) 0 gm TOP DAILY [facility] Last Admin: 05/17/17 09:54 Dose: 1 applic Epoetin Maxwell (Procrit) 10,000 unit IV MWF [facility] Last Admin: 05/15/17 11:11 Dose: 10,000 unit Ergocalciferol (Drisdol 50,000 Intl Units Cap) 1 cap PO Q7D [facility] Last Admin: 05/16/17 22:02 Dose: 1 cap Glucagon (Glucagen Diagnostic Kit) 1 mg IM STAT PRN; Protocol PRN Reason: Hypoglycemia Protocol Last Admin: 05/02/17 22:26 Dose: 1 mg Linezolid (Zyvox 600mg/300ml D5w) 600 mg in 300 mls @ 200 mls/hr IVPB Q12 [facility] Last Admin: 05/17/17 09:51 Dose: 200 mls/hr Propofol (Diprivan) 1,000 mg in 100 mls @ 1.762 mls/hr IV .Q24H PRN; Protocol; 5 MCG/KG/MIN PRN Reason: TITRATE PER MD ORDER Last Titration: 05/13/17 20:00 Dose: 10 mcg/kg/min, 3.524 mls/hr Micafungin Sodium 100 mg/ (Sodium Chloride) 100 mls @ 100 mls/hr IV Q24H [facility] Last Admin: 05/16/17 19:44 Dose: 100 mls/hr Norepinephrine Bitartrate 8 mg (/ Sodium Chloride) 250 mls @ 7.5 mls/hr IV .Q24H PRN; Protocol; 4 MCG/MIN PRN Reason: TITRATE PER MD ORDER Last Admin: 05/17/17 07:47 Dose: 20 mcg/min, 37.5 mls/hr Insulin Glargine (Lantus) 10 unit SC AMHS [facility] Last Admin: 05/17/17 09:52 Dose: Not Given Insulin Human Regular (Novolin R) 0 unit SC Q4 [facility] PRN Reason: Protocol Last Admin: 05/17/17 08:00 Dose: Not Given Latanoprost (Xalatan Opht) 0.02 ml OU HS [facility] Last Admin: 05/16/17 21:22 Dose: 0.02 ml Midodrine (Proamatine) 10 mg PO ONCE PRN PRN Reason: Diastolic blood pressure Last Admin: 05/09/17 11:02 Dose: 10 mg Nystatin (Nystop Topical Powder) 1 gm TOP Q8H [facility] Last Admin: 05/17/17 07:53 Dose: 1 applic Pantoprazole Sodium (Protonix Inj) 40 mg IVP DAILY [facility] Last Admin: 05/17/17 09:50 Dose: 40 mg Potassium Phos/Sodium Phos (Neutra-Phos) 1 pkt PO BIDPC [facility] Last Admin: 05/17/17 09:55 Dose: 1 pkt Rosuvastatin Calcium (Crestor) 10 mg PO HS [facility] Last Admin: 05/16/17 21:11 Dose: 10 mg Thiamine HCl (Vitamin B1 Inj) 100 mg IV Q8H [facility] Last Admin: 05/17/17 05:30 Dose: 100 mg Timolol Maleate (Timoptic 0.5% Ophth Soln) 1 drop OU BID [facility] Last Admin: 05/17/17 09:54 Dose: 1 drop Vitamin B Complex/Vit C/Folic Acid (Nephro-Alonzo) 1 tab PO 0800 [facility] Last Admin: 05/17/17 07:53 Dose: 1 tab - Labs Labs: 05/17/17 06:50 05/17/17 06:51 PT 14.8 SECONDS (9.7-12.2) H 05/16/17 06:58 INR 1.3 05/16/17 06:58 APTT 30 SECONDS (21-34) 05/16/17 06:58 - Head Exam Head Exam: ATRAUMATIC - ENT Exam ENT Exam: Mucous Membranes Moist - Respiratory Exam Respiratory Exam: absent: Rales, Rhonchi, Wheezes - Cardiovascular Exam Cardiovascular Exam: REGULAR RHYTHM, +S1, +S2 - Extremities Exam Additional comments: s/p L aka - Neurological Exam Additional comments: intubated and sedated - Skin Skin Exam: Dry, Warm Assessment and Plan - Assessment and Plan (Free Text) Plan: Neuro: Propofol drip Dialudid 0.5 mg IVP Q6H HEENT: brimonidine 0.2% 1 ml OU TID latanoprost 0.02 ml OU timolol 1 drop OU BID Respiratory: 05/13 - Intubated (RR 15, TV 450, PEEP 5, FiO2 60) - titrate FiO2 to maintain O2 > 92%) BiPAP trial with plan to extubate, as tolerated CXR 05/15: Stable position of endotracheal tube and right PICC line. No change in left lower lobe consolidation and moderate left pleural effusion. Chest CT angio: Filling defects are noted at both upper lobes pulmonary arteries suggestive of pulmonary embolus. Large bilateral effusion. Mild cardiomegaly. [id number] periocardial effusion. [id number] anasarca. Lower lobe atelectasis due to pleural effusion. CXR 05/17: HEM: H&H: 8.2/24.8 PLT: 341 Eliquis 5mg PO daily Procrit 05/15: 6.8/21.2 05/16: 8.8/25.7 after 1 unit pRBC 05/17: 10.8/33.3 Nephro: I - 2100 O - [address] Ambrose consulted, help appreciated Pt undergoes hemodialysis Tues/Thurs/Sat Ergocalcierol 1 capsule PO Q7D Procrit 05/16: I-2550 O-3020 05/17: I-1580 O-400 Fluid, Electrolytes, Diet: Netrophos BID Tube feeds Thiamine Vitamin B complex 05/15: Potassium 2.4 - Potassium Phosphate 15 mmole 255 mls @ 42.5 mls/hr Repeat CMP, magnesium and phosphorous after dialysis 05/16: Potassium 3.9 Endo: DM ISS Lantus 10 units SC AMHS Accucheck Glucose Hypoglycemic protocol Cardio: hx of diastolic CHF MAP > 65, EF 61% Midodrine 10 mg PRN Crestor 10 mg PO HS Timolol Maleate 1 drop OU BID [facility] 05/16: Levophed drip for hypotension. ID: Sepsis WBC 52.7 Lactate 5.3 on 05/11 and 05/13. 3.0 on 05/15 procal > 200 (05/12) Tmax overnight 101 wound culture showing candidia tissue culture negative blood culture negative x48h Infecious Disease, Dr. Wellington consulted, help appreciated: recommends removing PICC line as source of infection Surgery, Dr. Broussard consulted, help appreciated: Examined AV fistula site due to poor flow. Recommendation is to insert permactah and Right IJ triple lumen Fluconazole 200 mg IVPB q24h Nystatin 1 g TOP Q8 Linezolid 600 mg Q12 Cefepime 1 g QD Wound vac for left AKA wound - not likely the source of elevated WBC count. Plans to change wound vac today 05/16 Tmax overnight 100. R IJ TLC placed by Dr. Broussard at bedside 05/17 hydrocortisone 150mg IV now then 50mg IV q8hrs- will follow up BP GI AST 3558 ALT 510 Prophylactic Care GI: Protonix 40 mg PO daily PEG tube feedings SCD to right lower extremity Patient will remain in ICU. Case discussed with Dr. Myrick.
[2017-05-17] MEDS: Gentamicin 80 mg in 0.9% NS 80 MG/100 ML BAG IVPB SCH (12:56)
--- NOTE | 2017-05-17 13:59 | CP.PCM.PN ---
Subjective - Date & Time of Evaluation Date of Evaluation: 05/17/17 Time of Evaluation: 10:00 - Subjective Subjective: events noted lines removed/ replaced Objective - Vital Signs/Intake and Output Vital Signs (last 24 hours): Temp Pulse Resp BP Pulse Ox 99.5 F 134 H 16 135/48 L 100 05/17/17 08:00 05/17/17 11:00 05/17/17 11:00 05/17/17 11:00 05/17/17 11:00 Intake and Output: 05/17/17 05/17/17 06:59 18:59 Intake Total 1285.3 507.5 Output Total 100 Balance 1185.3 507.5 - Medications Medications: Current Medications Acetaminophen (Tylenol 650mg/20.3ml Solution Ud) 650 mg PO Q6 PRN PRN Reason: Fever >100.4 F Last Admin: 05/16/17 12:23 Dose: 650 mg Albumin Human (Albumin Human 5% (12.5 Gm/250 Ml)) 12.5 gm IV MWF PRN PRN Reason: hypotension Last Admin: 05/15/17 11:45 Dose: 12.5 gm Apixaban (Eliquis) 5 mg PO BID [facility] Last Admin: 05/15/17 19:20 Dose: 5 mg Brimonidine Tartrate (Alphagan 0.2% Opht) 1 ml OU TID [facility] Last Admin: 05/17/17 13:01 Dose: 1 applic Collagenase (Santyl) 0 gm TOP DAILY [facility] Last Admin: 05/17/17 09:54 Dose: 1 applic Epoetin Maxwell (Procrit) 10,000 unit IV MWF [facility] Last Admin: 05/15/17 11:11 Dose: 10,000 unit Ergocalciferol (Drisdol 50,000 Intl Units Cap) 1 cap PO Q7D [facility] Last Admin: 05/16/17 22:02 Dose: 1 cap Hydrocortisone Sodium Succinate (Solu-Cortef) 50 mg IV Q8H [facility] Last Admin: 05/17/17 12:58 Dose: Not Given Linezolid (Zyvox 600mg/300ml D5w) 600 mg in 300 mls @ 200 mls/hr IVPB Q12 [facility] Last Admin: 05/17/17 09:51 Dose: 200 mls/hr Propofol (Diprivan) 1,000 mg in 100 mls @ 1.762 mls/hr IV .Q24H PRN; Protocol; 5 MCG/KG/MIN PRN Reason: TITRATE PER MD ORDER Last Titration: 05/13/17 20:00 Dose: 10 mcg/kg/min, 3.524 mls/hr Micafungin Sodium 100 mg/ (Sodium Chloride) 100 mls @ 100 mls/hr IV Q24H [facility] Last Admin: 05/16/17 19:44 Dose: 100 mls/hr Norepinephrine Bitartrate 8 mg (/ Sodium Chloride) 250 mls @ 7.5 mls/hr IV .Q24H PRN; Protocol; 4 MCG/MIN PRN Reason: TITRATE PER MD ORDER Last Admin: 05/17/17 07:47 Dose: 20 mcg/min, 37.5 mls/hr Gentamicin Sulfate/Sodium Chloride (Gentamicin Iv 80 Mg Premix) 80 mg in 100 mls @ 100 mls/hr IVPB Q24H [facility] Last Admin: 05/17/17 12:56 Dose: 100 mls/hr Insulin Glargine (Lantus) 10 unit SC AMHS [facility] Last Admin: 05/17/17 09:52 Dose: Not Given Insulin Human Regular (Novolin R) 0 unit SC Q4 [facility] PRN Reason: Protocol Last Admin: 05/17/17 12:12 Dose: Not Given Latanoprost (Xalatan Opht) 0.02 ml OU HS [facility] Last Admin: 05/16/17 21:22 Dose: 0.02 ml Midodrine (Proamatine) 10 mg PO ONCE PRN PRN Reason: Diastolic blood pressure Last Admin: 05/09/17 11:02 Dose: 10 mg Nystatin (Nystop Topical Powder) 1 gm TOP Q8H [facility] Last Admin: 05/17/17 07:53 Dose: 1 applic Pantoprazole Sodium (Protonix Inj) 40 mg IVP DAILY [facility] Last Admin: 05/17/17 09:50 Dose: 40 mg Potassium Phos/Sodium Phos (Neutra-Phos) 1 pkt PO BIDPC [facility] Last Admin: 05/17/17 09:55 Dose: 1 pkt Rosuvastatin Calcium (Crestor) 10 mg PO HS [facility] Last Admin: 05/16/17 21:11 Dose: 10 mg Thiamine HCl (Vitamin B1 Inj) 100 mg IV Q8H [facility] Last Admin: 05/17/17 13:52 Dose: 100 mg Timolol Maleate (Timoptic 0.5% Ophth Soln) 1 drop OU BID [facility] Last Admin: 05/17/17 09:54 Dose: 1 drop Vitamin B Complex/Vit C/Folic Acid (Nephro-Alonzo) 1 tab PO 0800 [facility] Last Admin: 05/17/17 07:53 Dose: 1 tab - Labs Labs: 05/17/17 06:50 05/17/17 06:51 PT 14.8 SECONDS (9.7-12.2) H 05/16/17 06:58 INR 1.3 05/16/17 06:58 APTT 30 SECONDS (21-34) 05/16/17 06:58 - Constitutional Appears: Cachectic, Chronically Ill - Head Exam Head Exam: NORMOCEPHALIC - Eye Exam Eye Exam: absent: Scleral icterus - ENT Exam ENT Exam: Mucous Membranes Dry - Neck Exam Neck Exam: absent: Lymphadenopathy - Respiratory Exam Respiratory Exam: Decreased Breath Sounds, Rhonchi - Cardiovascular Exam Cardiovascular Exam: REGULAR RHYTHM - GI/Abdominal Exam GI & Abdominal Exam: Distended Assessment and Plan (1) Elevated WBC count Status: Acute (2) S/P BKA (below knee amputation) Status: Acute (3) Sacral decubitus ulcer, stage III Status: Acute (4) Sepsis Status: Acute
[2017-05-17] MEDS: Acetaminophen 650mg/20.3ml solution UD PO PRN (15:42)
--- NOTE | 2017-05-17 16:17 | CP.CCUPN ---
CCU Subjective - Physician Review Events Since Last Encounter (Free Text): 05/17/17 16:16 71-year-old female with history of end-stage renal disease, peripheral vascular disease Severe sepsis Anemia left BKA, infected stump Now having sepsis, high lactate. Patient got intubated 2 days ago, on ventilator now. Responding very poorly Patient has norepinephrine drip to maintain the blood pressure. she is on antibiotic. Vital signs reviewed No neck vein distention noted bilateral wheezing tachycardia Abdomen soft, nontender. generalized edema Respiratory insufficiency X-ray left lower lung pneumonia On antibiotic Hemodialysis Ventilator poor prognosis patient will condition is worsening now. spoke to PMD Spoke to the PMD. grave prognosis CCU Objective - Vital Signs / Intake & Output Vital Signs (Last 4 hours): Vital Signs Pulse Resp BP Pulse Ox 05/17/17 15:00 139 H 20 134/49 L 100 05/17/17 14:42 138 H 24 128/58 L 100 05/17/17 14:00 138 H 27 H 128/58 L 100 05/17/17 13:00 138 H 20 130/41 L 100 Intake and Output (Last 8hrs): Intake & Output 05/17/17 05/17/17 05/17/17 06:59 14:59 22:59 Intake Total 442.8 1020.0 33.8 Output Total 100 Balance 342.8 1020.0 33.8 Weight 150 lb 2.157 oz Intake: IV 210 270 Intake, IV Amount 232.8 750.0 33.8 Right PICC 450 rt IJ extra port 232.8 300.0 33.8 Output: Stool 100 - Physical Exam Head: Positive for: Atraumatic Pupils: Positive for: PERRL Extroacular Muscles: Positive for: EOMI Mouth: Positive for: Moist Mucous Membranes Respiratory/Chest: Positive for: Clear to Auscultation, Good Air Exchange, Other (intubated ). Negative for: Respiratory Distress, Accessory Muscle Use, Wheezes, Rales, Rhonchi Cardiovascular: Positive for: Regular Rate and Rhythm Abdomen: Positive for: Feeding Tubes. Negative for: Tenderness, Distention Upper Extremity: Positive for: Edema Lower Extremity: Positive for: Edema, Other (s/p left AKA, wound of surgical site with wound vac ) Neurological: Positive for: Other (Intubated and sedated ) Skin: Positive for: Warm, Dry Psychiatric: Positive for: Alert - Medications Active Medications: Active Medications Generic Name Dose Route Start Last Admin Trade Name Freq PRN Reason Stop Dose Admin Acetaminophen 650 mg 05/13/17 09:40 05/17/17 15:42 Tylenol 650mg/20.3ml Solution Ud PO 650 mg Q6 PRN Administration Fever >100.4 F Albumin Human 12.5 gm 05/13/17 12:00 05/15/17 11:45 Albumin Human 5% (12.5 Gm/250 Ml) IV 12.5 gm MWF PRN Administration hypotension Apixaban 5 mg 05/13/17 10:00 05/15/17 19:20 Eliquis PO 5 mg BID ELINA Administration Brimonidine Tartrate 1 ml 04/12/17 10:00 05/17/17 13:01 Alphagan 0.2% Opht OU 1 applic TID ELINA Administration Collagenase 0 gm 05/12/17 11:15 05/17/17 09:54 Santyl TOP 1 applic DAILY ELINA Administration Epoetin Maxwell 10,000 unit 04/27/17 12:00 05/15/17 11:11 Procrit IV 10,000 unit MWF ELINA Administration Ergocalciferol 1 cap 04/11/17 22:30 05/16/17 22:02 Drisdol 50,000 Intl Units Cap PO 1 cap Q7D ELINA Administration Hydrocortisone Sodium Succinate 50 mg 05/17/17 12:45 05/17/17 12:58 Solu-Cortef IV Not Given Q8H ELINA Linezolid 600 mg in 300 mls @ 200 mls/hr 05/12/17 22:00 05/17/17 09:51 Zyvox 600mg/300ml D5w IVPB 200 mls/hr Q12 ELINA Administration Propofol 1,000 mg in 100 mls @ 1.762 mls/hr 05/13/17 15:41 05/13/17 20:00 Diprivan IV 10 mcg/kg/min .Q24H PRN 3.524 mls/hr TITRATE PER MD ORDER Titration Protocol 5 MCG/KG/MIN Micafungin Sodium 100 mg/ 100 mls @ 100 mls/hr 05/14/17 20:00 05/16/17 19:44 Sodium Chloride IV 100 mls/hr Q24H ELINA Administration Norepinephrine Bitartrate 8 mg 250 mls @ 7.5 mls/hr 05/16/17 07:13 05/17/17 14:42 / Sodium Chloride IV 20 mcg/min .Q24H PRN 37.5 mls/hr TITRATE PER MD ORDER Administration Protocol 4 MCG/MIN Gentamicin Sulfate/Sodium Chloride 80 mg in 100 mls @ 100 mls/hr 05/17/17 13: 00 05/17/17 12:56 Gentamicin Iv 80 Mg Premix IVPB 100 mls/hr Q24H ELINA Administration Insulin Glargine 10 unit 05/14/17 22:00 05/17/17 09:52 Lantus SC Not Given [facility] ELINA Insulin Human Regular 0 unit 05/14/17 21:05 05/17/17 12:12 Novolin R SC Not Given Q4 [facility] Protocol Latanoprost 0.02 ml 04/12/17 22:00 05/16/17 21:22 Xalatan Opht OU 0.02 ml HS ELINA Administration Midodrine 10 mg 04/27/17 11:04 05/09/17 11:02 Proamatine PO 10 mg ONCE PRN Administration Diastolic blood pressure Nystatin 1 gm 05/11/17 15:51 05/17/17 15:42 Nystop Topical Powder TOP 1 applic Q8H ELINA Administration Pantoprazole Sodium 40 mg 05/17/17 10:00 05/17/17 09:50 Protonix Inj IVP 40 mg DAILY ELINA Administration Potassium Phos/Sodium Phos 1 pkt 05/13/17 09:00 05/17/17 09:55 Neutra-Phos PO 1 pkt BIDPC ELINA Administration Rosuvastatin Calcium 10 mg 04/12/17 22:00 05/16/17 21:11 Crestor PO 10 mg HS ELINA Administration Thiamine HCl 100 mg 04/11/17 22:30 05/17/17 13:52 Vitamin B1 Inj IV 100 mg Q8H ELINA Administration Timolol Maleate 1 drop 04/12/17 10:00 05/17/17 09:54 Timoptic 0.5% Ophth Soln OU 1 drop BID ELINA Administration Vitamin B Complex/Vit C/Folic Acid 1 tab 04/12/17 08:00 05/17/17 07:53 Nephro-Alonzo PO 1 tab 0800 ELINA Administration - Patient Studies Lab Studies: Microbiology Studies 05/10/17 12:41 Gram Stain - Final Other: Please Indicate Tissue Culture - Final No growth. 05/11/17 10:56 Blood Culture - Final Blood-During Dialysis NO GROWTH AFTER 5 DAYS Gram Stain - Final TEST NOT PERFORMED Lab Studies 05/17/17 05/17/17 05/17/17 Range/Units 11:27 08:20 08:02 WBC (4.8-10.8) K/uL RBC (3.80-5.20) Mil/uL Hgb (11.0-16.0) g/dL Hct (34.0-47.0) % MCV (81.0-99.0) fL MCH (27.0-31.0) pg MCHC (33.0-37.0) g/dL RDW (11.5-14.5) % Plt Count (130-400) K/uL MPV (7.2-11.7) fL Neut % (Auto) (50.0-75.0) % Lymph % (Auto) (20.0-40.0) % [place] % (Auto) (0.0-10.0) % Eos % (Auto) (0.0-4.0) % Baso % (Auto) (0.0-2.0) % Neut # (1.8-7.0) K/uL Lymph # (1.0-4.3) K/uL [place] # (0.0-0.8) K/uL Eos # (0.0-0.7) K/uL Baso # (0.0-0.2) K/uL Neutrophils % (Manual) (50-75) % Band Neutrophils % (0-2) % Lymphocytes % (Manual) (20-40) % Reactive Lymphs % (0-0) % Monocytes % (Manual) (0-10) % Metamyelocytes % (0-0) % Myelocytes % (0-0) % Nucleated RBC % (0-0) % Toxic Granulation Platelet Estimate (NORMAL) Large Platelets Polychromasia Hypochromasia (manual) Poikilocytosis (manual Anisocytosis (manual) Macrocytosis (manual) Tear Drop Cells Ovalocytes Karen Cells Sodium (132-148) mmol/L Potassium (3.6-5.2) mmol/L Chloride (98-107) mmol/L Carbon Dioxide (22-30) mmol/L Anion Gap (10-20) BUN (7-17) mg/dL Creatinine (0.7-1.2) mg/dL Est GFR ( Amer) Est GFR (Non-Af Amer) POC Glucose (mg/dL) 114 H 136 H 49 L (65-110) mg/dL Random Glucose (65-105) mg/dL Calcium (8.6-10.4) mg/dl Total Bilirubin (0.2-1.3) mg/dL AST (14-36) U/L ALT (9-52) U/L Alkaline Phosphatase (38-126) U/L Total Protein (6.3-8.3) g/dL Albumin (3.5-5.0) g/dL Globulin (2.2-3.9) gm/dL Albumin/Globulin Ratio (1.0-2.1) 05/17/17 05/17/17 05/17/17 Range/Units 08:00 06:51 06:50 WBC 52.7 H* (4.8-10.8) K/uL RBC 3.53 L (3.80-5.20) Mil/uL Hgb 10.8 L D (11.0-16.0) g/dL Hct 33.3 L (34.0-47.0) % MCV 94.4 (81.0-99.0) fL MCH 30.7 (27.0-31.0) pg MCHC 32.5 L (33.0-37.0) g/dL RDW 17.1 H (11.5-14.5) % Plt Count 347 (130-400) K/uL MPV 11.0 (7.2-11.7) fL Neut % (Auto) 82.3 H (50.0-75.0) % Lymph % (Auto) 12.6 L (20.0-40.0) % [place] % (Auto) 3.6 (0.0-10.0) % Eos % (Auto) 0.8 (0.0-4.0) % Baso % (Auto) 0.7 (0.0-2.0) % Neut # 43.4 H (1.8-7.0) K/uL Lymph # 6.6 H (1.0-4.3) K/uL [place] # 1.9 H (0.0-0.8) K/uL Eos # 0.4 (0.0-0.7) K/uL Baso # 0.4 H (0.0-0.2) K/uL Neutrophils % (Manual) 74 (50-75) % Band Neutrophils % 4 H (0-2) % Lymphocytes % (Manual) 12 L (20-40) % Reactive Lymphs % 2 H (0-0) % Monocytes % (Manual) 6 (0-10) % Metamyelocytes % 1 H (0-0) % Myelocytes % 1 H (0-0) % Nucleated RBC % 6 H (0-0) % Toxic Granulation Present Platelet Estimate Normal (NORMAL) Large Platelets Present Polychromasia Slight Hypochromasia (manual) Slight Poikilocytosis (manual Slight Anisocytosis (manual) Slight Macrocytosis (manual) Slight Tear Drop Cells Slight Ovalocytes Slight Karen Cells Slight Sodium 137 (132-148) mmol/L Potassium 5.1 (3.6-5.2) mmol/L Chloride 104 (98-107) mmol/L Carbon Dioxide 11 L* D (22-30) mmol/L Anion Gap 27 H (10-20) BUN 48 H (7-17) mg/dL Creatinine 2.4 H (0.7-1.2) mg/dL Est GFR ( Amer) 24 Est GFR (Non-Af Amer) 20 POC Glucose (mg/dL) 49 L (65-110) mg/dL Random Glucose 55 L (65-105) mg/dL Calcium 7.1 L (8.6-10.4) mg/dl Total Bilirubin 1.0 (0.2-1.3) mg/dL AST 3558 H (14-36) U/L ALT 510 H D (9-52) U/L Alkaline Phosphatase 252 H (38-126) U/L Total Protein 4.2 L (6.3-8.3) g/dL Albumin 2.1 L (3.5-5.0) g/dL Globulin 2.2 (2.2-3.9) gm/dL Albumin/Globulin Ratio 0.9 L (1.0-2.1) 05/17/17 05/16/17 05/16/17 Range/Units 03:44 23:53 19:56 WBC (4.8-10.8) K/uL RBC (3.80-5.20) Mil/uL Hgb (11.0-16.0) g/dL Hct (34.0-47.0) % MCV (81.0-99.0) fL MCH (27.0-31.0) pg MCHC (33.0-37.0) g/dL RDW (11.5-14.5) % Plt Count (130-400) K/uL MPV (7.2-11.7) fL Neut % (Auto) (50.0-75.0) % Lymph % (Auto) (20.0-40.0) % [place] % (Auto) (0.0-10.0) % Eos % (Auto) (0.0-4.0) % Baso % (Auto) (0.0-2.0) % Neut # (1.8-7.0) K/uL Lymph # (1.0-4.3) K/uL [place] # (0.0-0.8) K/uL Eos # (0.0-0.7) K/uL Baso # (0.0-0.2) K/uL Neutrophils % (Manual) (50-75) % Band Neutrophils % (0-2) % Lymphocytes % (Manual) (20-40) % Reactive Lymphs % (0-0) % Monocytes % (Manual) (0-10) % Metamyelocytes % (0-0) % Myelocytes % (0-0) % Nucleated RBC % (0-0) % Toxic Granulation Platelet Estimate (NORMAL) Large Platelets Polychromasia Hypochromasia (manual) Poikilocytosis (manual Anisocytosis (manual) Macrocytosis (manual) Tear Drop Cells Ovalocytes Karen Cells Sodium (132-148) mmol/L Potassium (3.6-5.2) mmol/L Chloride (98-107) mmol/L Carbon Dioxide (22-30) mmol/L Anion Gap (10-20) BUN (7-17) mg/dL Creatinine (0.7-1.2) mg/dL Est GFR ( Amer) Est GFR (Non-Af Amer) POC Glucose (mg/dL) 142 H 212 H 215 H (65-110) mg/dL Random Glucose (65-105) mg/dL Calcium (8.6-10.4) mg/dl Total Bilirubin (0.2-1.3) mg/dL AST (14-36) U/L ALT (9-52) U/L Alkaline Phosphatase (38-126) U/L Total Protein (6.3-8.3) g/dL Albumin (3.5-5.0) g/dL Globulin (2.2-3.9) gm/dL Albumin/Globulin Ratio (1.0-2.1) 05/16/17 Range/Units 16:32 WBC (4.8-10.8) K/uL RBC (3.80-5.20) Mil/uL Hgb (11.0-16.0) g/dL Hct (34.0-47.0) % MCV (81.0-99.0) fL MCH (27.0-31.0) pg MCHC (33.0-37.0) g/dL RDW (11.5-14.5) % Plt Count (130-400) K/uL MPV (7.2-11.7) fL Neut % (Auto) (50.0-75.0) % Lymph % (Auto) (20.0-40.0) % [place] % (Auto) (0.0-10.0) % Eos % (Auto) (0.0-4.0) % Baso % (Auto) (0.0-2.0) % Neut # (1.8-7.0) K/uL Lymph # (1.0-4.3) K/uL [place] # (0.0-0.8) K/uL Eos # (0.0-0.7) K/uL Baso # (0.0-0.2) K/uL Neutrophils % (Manual) (50-75) % Band Neutrophils % (0-2) % Lymphocytes % (Manual) (20-40) % Reactive Lymphs % (0-0) % Monocytes % (Manual) (0-10) % Metamyelocytes % (0-0) % Myelocytes % (0-0) % Nucleated RBC % (0-0) % Toxic Granulation Platelet Estimate (NORMAL) Large Platelets Polychromasia Hypochromasia (manual) Poikilocytosis (manual Anisocytosis (manual) Macrocytosis (manual) Tear Drop Cells Ovalocytes Karen Cells Sodium (132-148) mmol/L Potassium (3.6-5.2) mmol/L Chloride (98-107) mmol/L Carbon Dioxide (22-30) mmol/L Anion Gap (10-20) BUN (7-17) mg/dL Creatinine (0.7-1.2) mg/dL Est GFR ( Amer) Est GFR (Non-Af Amer) POC Glucose (mg/dL) 297 H (65-110) mg/dL Random Glucose (65-105) mg/dL Calcium (8.6-10.4) mg/dl Total Bilirubin (0.2-1.3) mg/dL AST (14-36) U/L ALT (9-52) U/L Alkaline Phosphatase (38-126) U/L Total Protein (6.3-8.3) g/dL Albumin (3.5-5.0) g/dL Globulin (2.2-3.9) gm/dL Albumin/Globulin Ratio (1.0-2.1) Laboratory Results - last 24 hr 05/16/17 05/16/17 05/16/17 16:32 19:56 23:53 WBC RBC Hgb Hct MCV MCH MCHC RDW Plt Count MPV Neut % (Auto) Lymph % (Auto) [place] % (Auto) Eos % (Auto) Baso % (Auto) Neut # Lymph # [place] # Eos # Baso # Neutrophils % (Manual) Band Neutrophils % Lymphocytes % (Manual) Reactive Lymphs % Monocytes % (Manual) Metamyelocytes % Myelocytes % Nucleated RBC % Toxic Granulation Platelet Estimate Large Platelets Polychromasia Hypochromasia (manual) Poikilocytosis (manual Anisocytosis (manual) Macrocytosis (manual) Tear Drop Cells Ovalocytes [place] Cells Sodium Potassium Chloride Carbon Dioxide Anion Gap BUN Creatinine Est GFR ( Amer) Est GFR (Non-Af Amer) POC Glucose (mg/dL) 297 H 215 H 212 H Random Glucose Calcium Total Bilirubin AST ALT Alkaline Phosphatase Total Protein Albumin Globulin Albumin/Globulin Ratio 05/17/17 05/17/17 05/17/17 03:44 06:50 06:51 WBC 52.7 H* RBC 3.53 L Hgb 10.8 L D Hct 33.3 L MCV 94.4 MCH 30.7 MCHC 32.5 L RDW 17.1 H Plt Count 347 MPV 11.0 Neut % (Auto) 82.3 H Lymph % (Auto) 12.6 L [place] % (Auto) 3.6 Eos % (Auto) 0.8 Baso % (Auto) 0.7 Neut # 43.4 H Lymph # 6.6 H [place] # 1.9 H Eos # 0.4 Baso # 0.4 H Neutrophils % (Manual) 74 Band Neutrophils % 4 H Lymphocytes % (Manual) 12 L Reactive Lymphs % 2 H Monocytes % (Manual) 6 Metamyelocytes % 1 H Myelocytes % 1 H Nucleated RBC % 6 H Toxic Granulation Present Platelet Estimate Normal Large Platelets Present Polychromasia Slight Hypochromasia (manual) Slight Poikilocytosis (manual Slight Anisocytosis (manual) Slight Macrocytosis (manual) Slight Tear Drop Cells Slight Ovalocytes Slight Karen Cells Slight Sodium 137 Potassium 5.1 Chloride 104 Carbon Dioxide 11 L* D Anion Gap 27 H BUN 48 H Creatinine 2.4 H Est GFR ( Amer) 24 Est GFR (Non-Af Amer) 20 POC Glucose (mg/dL) 142 H Random Glucose 55 L Calcium 7.1 L Total Bilirubin 1.0 AST 3558 H ALT 510 H D Alkaline Phosphatase 252 H Total Protein 4.2 L Albumin 2.1 L Globulin 2.2 Albumin/Globulin Ratio 0.9 L 05/17/17 05/17/17 05/17/17 08:00 08:02 08:20 WBC RBC Hgb Hct MCV MCH MCHC RDW Plt Count MPV Neut % (Auto) Lymph % (Auto) [place] % (Auto) Eos % (Auto) Baso % (Auto) Neut # Lymph # [place] # Eos # Baso # Neutrophils % (Manual) Band Neutrophils % Lymphocytes % (Manual) Reactive Lymphs % Monocytes % (Manual) Metamyelocytes % Myelocytes % Nucleated RBC % Toxic Granulation Platelet Estimate Large Platelets Polychromasia Hypochromasia (manual) Poikilocytosis (manual Anisocytosis (manual) Macrocytosis (manual) Tear Drop Cells Ovalocytes Karen Cells Sodium Potassium Chloride Carbon Dioxide Anion Gap BUN Creatinine Est GFR ( Amer) Est GFR (Non-Af Amer) POC Glucose (mg/dL) 49 L 49 L 136 H Random Glucose Calcium Total Bilirubin AST ALT Alkaline Phosphatase Total Protein Albumin Globulin Albumin/Globulin Ratio 05/17/17 11:27 WBC RBC Hgb Hct MCV MCH MCHC RDW Plt Count MPV Neut % (Auto) Lymph % (Auto) [place] % (Auto) Eos % (Auto) Baso % (Auto) Neut # Lymph # [place] # Eos # Baso # Neutrophils % (Manual) Band Neutrophils % Lymphocytes % (Manual) Reactive Lymphs % Monocytes % (Manual) Metamyelocytes % Myelocytes % Nucleated RBC % Toxic Granulation Platelet Estimate Large Platelets Polychromasia Hypochromasia (manual) Poikilocytosis (manual Anisocytosis (manual) Macrocytosis (manual) Tear Drop Cells Ovalocytes Karen Cells Sodium Potassium Chloride Carbon Dioxide Anion Gap BUN Creatinine Est GFR ( Amer) Est GFR (Non-Af Amer) POC Glucose (mg/dL) 114 H Random Glucose Calcium Total Bilirubin AST ALT Alkaline Phosphatase Total Protein Albumin Globulin Albumin/Globulin Ratio Fingerstick Blood Sugar Results: 114 Assessment/Plan (1) Diabetes mellitus Assessment and plan: 71-year-old female with a history of hypertension, diabetes, hypercholesterolemia, peripheral vascular disease, left below-knee and petition , most likely infected stump at this time. End-stage renal disease on dialysis. Hypertension. Unclear at this time. Most likely sepsis. Currently an antibiotic. Will repeat this lactate level again. Less likely is ischemic bowel. Abdomen is benign at this time. Continue to monitor. The lactate is normal patient can be transferred to floor. Current Visit: Yes Status: Acute (2) History of CHF (congestive heart failure) Current Visit: Yes Status: Acute (3) S/P BKA (below knee amputation) Current Visit: Yes Status: Acute Priority: High
[2017-05-17] MEDS: Micafungin 100 MG in Sodium Chloride 0.9% 100 ML IV SCH (19:55)
[2017-05-17] MEDS: Latanoprost 2.5 ml Opht Soln OU SCH (21:50)
[2017-05-18] MEDS: (Novolin R) Insulin Human Regular 100 units/ml vial SC SCH ×6 (01:00→20:00)
[2017-05-18] MEDS: Thiamine 100 mg/ml Inj IV SCH ×3 (06:10→21:50)
[2017-05-18 06:32] LABS: ABG ALLEN TEST POS; ABG MECHANICAL RATE 15; ARTERIAL BLOOD GAS MODE PRVC; ARTERIAL BLOOD HGB O2 SAT 97.3 % (95.0-98.0); ATERIAL BLOOD GAS PEEP 5; CARBOXYHEMOGLOBIN 2.5 % (0.5-1.5); DRAW SITE RR; HHB -0.9 % (0.0-5.0); METHEMOGLOBIN 1.1 % (0.0-3.0)
[2017-05-18 06:32] LABS: BASO # 0.2 K/uL (0.0-0.2); BASO % 0.5 % (0.0-2.0); EOS # 0.1 K/uL (0.0-0.7); EOS % 0.1 % (0.0-4.0); HEMATOCRIT 29.1 % (34.0-47.0); LYMPH # 2.8 K/uL (1.0-4.3); LYMPH % 6.8 % (20.0-40.0); MEAN CELL VOLUME 93.8 fL (81.0-99.0); MEAN PLATELET VOLUME 10.6 fL (7.2-11.7); MONO # 0.7 K/uL (0.0-0.8); MONO % 1.8 % (0.0-10.0); NRBC % 2.6 % (0.0-2.0); PLATELET COUNT 324 K/uL (130-400); RED CELL DISTRIBUTION WIDTH 17.4 % (11.5-14.5)
[2017-05-18 06:39] LABS: WHITE BLOOD COUNT 41.5 K/uL (4.8-10.8)
[2017-05-18 06:50] LABS: ALB/GLOB RATIO 0.9 (1.0-2.1); BILIRUBIN,TOTAL 1.3 mg/dL (0.2-1.3); CALCIUM 6.5 mg/dl (8.6-10.4); POTASSIUM 4.9 mmol/L (3.6-5.2); TOTAL PROTEIN 3.7 g/dL (6.3-8.3)
[2017-05-18] MEDS: Potassium & Sodium Phosphate PO SCH ×2 (08:11→17:27)
[2017-05-18] MEDS: Multivitamin Vitamin B Complex (Nephro-Vite) Tab PO SCH (08:11)
[2017-05-18] MEDS: Nystatin 100,000 Units/gm Topical Pow(15 gm) TOP SCH ×2 (08:12→15:54)
[2017-05-18] MEDS ORDERED: Phytonadione 10 mg/ml Inj (Adult) SC ONE (08:30)
[2017-05-18] MEDS: Brimonidine 0.2% Opth Sol (5ml) OU SCH ×3 (09:20→17:27)
[2017-05-18] MEDS: Collagenase 250 Units/gm Ointment(30 gm) TOP SCH (09:26)
[2017-05-18] MEDS: Linezolid 600 mg in D5W 300 ml 600 MG/300 ML BAG IVPB SCH ×2 (09:27→21:50)
[2017-05-18] MEDS: (Lantus) Insulin Glargine, Recombinant SC SCH ×2 (09:37→21:55)
[2017-05-18 09:46] LABS: GIANT PLATELETS PRESENT; LARGE PLATELETS PRESENT; NEUTROPHIL 85 % (50-75); NUCLEATED RED BLOOD CELL 5 % (0-0); TOTAL CELLS COUNTED 100
--- NOTE | 2017-05-18 09:55 | RAD ---
HISTORY: Follow up Intubation COMPARISON: 05/17/2017 FINDINGS: The endotracheal tube terminates 3.5 cm proximal to the chinmay. The right PICC line terminates in the SVC. The right IJV line terminates in the right atrium. LUNGS: The right lung is clear. No change in moderate left pleural effusion. PLEURA: No significant pleural effusion identified, no pneumothorax apparent. CARDIOVASCULAR: Normal. OSSEOUS STRUCTURES: No significant abnormalities. VISUALIZED UPPER ABDOMEN: Normal. OTHER FINDINGS: None. IMPRESSION: Moderate left pleural effusion. Underlying atelectasis/ pneumonia cannot be excluded. No change.
[2017-05-18] MEDS ORDERED: DOPamine 400mg/250ml D5W 400 MG/250 ML BAG IV ONE (10:59)
[2017-05-18] MEDS: Albumin Human 5% (12.5 gm/250 ml) IV PRN ×2 (11:02→12:00)
[2017-05-18] MEDS: Epoetin Alfa 10,000 unit/ml Dialysis IV SCH (11:07)
[2017-05-18] MEDS: DOPamine 400mg/250ml D5W 400 MG/250 ML BAG IV PRN (11:57)
[2017-05-18] MEDS: Norepinephrine 8 MG in Sodium Chloride 0.9% 242 ML IV PRN (12:10)
--- NOTE | 2017-05-18 12:51 | PN ---
DATE: LOCATION: ICU 5. SUBJECTIVE: This is a 71-year-old female, seen and examined early in rounds, without significant clinical changes or reported active neurological changes. The entire chart is reviewed including, but not limited to, the most recent lab and radiology study results, current and the previous medication list, current and the previous medical events. The patient is still intubated with intermittent period of less rectal bleeding. LABORATORY REPORT: Most recent lab results showed leukocytosis of with low hemoglobin of 9.3, low hematocrit 29.1, with normal platelet count, but abnormal ABGs with low CO2 content at 12 indicative of severe metabolic acidosis, with BUN 56, creatinine 2.6, with blood glucose level of 133, low calcium 6.5, with excessive increase, again of AST, ALT and alkaline phosphatase, but normal total bilirubin, indicative of hepatocellular injury, most likely secondary to chemical hepatitis, starvation, or infectious process. Albumin still very low at 1.7, with low total protein at 3.7. Today's chest x-ray report is still pending. PHYSICAL EXAMINATION: GENERAL: A 71-year-old female, intubated, sedated. VITAL SIGNS: Afebrile, with pulse of 92, blood pressure of 110/82. HEENT: Showed pale, dry oral mucous membrane, nonicteric sclerae. LUNGS: Few scattered crepitation, decreased air entry at bases. The patient is intubated. HEART: Positive S1 and S2, with increased rate. ABDOMEN: PEG tube is in place without reported bleeding, residual or resistant. Bowel sounds mildly hyperactive. No evidence of anterior abdominal wall cellulitis. No reported new mass or hepatomegaly. EXTREMITIES: With edematous changes. No clubbing or cyanosis. NEUROLOGIC: No new reported neurological deficits, sensory or motor. No focal deficits. IMPRESSION: 1. Gastrointestinal bleeding, most likely drug-induced, subsiding. 2. Dysphagia, failure to thrive, malnutrition, severe hypoalbuminemia. 3. Status post percutaneous endoscopic gastrostomy insertion. 4. Respiratory failure, the patient is intubated. 5. Septicemia with severe leukocytosis and metabolic acidosis. 6. Abnormal liver function tests, most likely secondary to hepatocellular injury, again that could be secondary to chemical hepatitis, drug induced or infectious process or starvation, less likely. 7. Known history of chronic renal failure, on hemodialysis. 8. Electrolyte imbalance. 9. Anemia secondary to above. SUGGESTION: 1. Continue current management. 2. Blood transfusion as needed to keep hemoglobin around 10 gram percent. 3. If more active bleeding, then bleeding scan to be scheduled. 4. Further recommendation to follow. 5. The patient also will need albumin IV with parenteral hyperalimentation. Thank you for letting me participate in your patient's case management. Karena Arias MD
[2017-05-18] MEDS: Gentamicin 80 mg in 0.9% NS 80 MG/100 ML BAG IVPB SCH (13:01)
--- NOTE | 2017-05-18 17:28 | CP.CCUPN ---
CCU Subjective - Physician Review Events Since Last Encounter (Free Text): 05/18/17 17:28 71-year-old female with history of end-stage renal disease, peripheral vascular disease Severe sepsis Anemia left BKA, infected stump Now having sepsis, high lactate. Patient got intubated 2 days ago, on ventilator now. Responding very poorly Patient has norepinephrine drip to maintain the blood pressure. she is on antibiotic. Vital signs reviewed No neck vein distention noted bilateral wheezing tachycardia Abdomen soft, nontender. generalized edema Respiratory insufficiency X-ray left lower lung pneumonia On antibiotic Hemodialysis Ventilator poor prognosis Patient issued hemodialysis today, but hypertension noted. patient will condition is worsening now. spoke to PMD Spoke to the PMD. grave prognosis CCU Objective - Vital Signs / Intake & Output Vital Signs (Last 4 hours): Vital Signs Temp Pulse Resp BP Pulse Ox 05/18/17 17:00 96 H 28 H 103/17 L 100 05/18/17 16:00 98.9 F 96 H 26 H 95/29 L 100 05/18/17 15:00 95 H 28 H 110/67 100 05/18/17 14:00 95 H 33 H 127/25 L 100 05/18/17 13:30 103 H 26 H 151/23 H 100 Intake and Output (Last 8hrs): Intake & Output 05/18/17 05/18/17 05/18/17 06:59 14:59 22:59 Intake Total 223.3 462.0 13.8 Output Total 100 Balance 123.3 462.0 13.8 Weight 132 lb 4.438 oz Intake: IV 75 235 Intake, IV Amount 148.3 227.0 13.8 Right IJ Side Port 148.3 211.0 13.8 Right PICC 0 Rt IJ Side port 'B" 16 Output: Stool 100 - Physical Exam Head: Positive for: Atraumatic Pupils: Positive for: PERRL Extroacular Muscles: Positive for: EOMI Mouth: Positive for: Moist Mucous Membranes Respiratory/Chest: Positive for: Clear to Auscultation, Good Air Exchange, Other (intubated ). Negative for: Respiratory Distress, Accessory Muscle Use, Wheezes, Rales, Rhonchi Cardiovascular: Positive for: Regular Rate and Rhythm Abdomen: Positive for: Feeding Tubes. Negative for: Tenderness, Distention Upper Extremity: Positive for: Edema Lower Extremity: Positive for: Edema, Other (s/p left AKA, wound of surgical site with wound vac ) Neurological: Positive for: Other (Intubated and sedated ) Skin: Positive for: Warm, Dry Psychiatric: Positive for: Alert - Medications Active Medications: Active Medications Generic Name Dose Route Start Last Admin Trade Name Freq PRN Reason Stop Dose Admin Acetaminophen 650 mg 05/13/17 09:40 05/17/17 15:42 Tylenol 650mg/20.3ml Solution Ud PO 650 mg Q6 PRN Administration Fever >100.4 F Albumin Human 12.5 gm 05/13/17 12:00 05/18/17 12:00 Albumin Human 5% (12.5 Gm/250 Ml) IV 12.5 gm MWF PRN Administration hypotension Apixaban 5 mg 05/13/17 10:00 05/15/17 19:20 Eliquis PO 5 mg BID ELINA Administration Brimonidine Tartrate 1 ml 04/12/17 10:00 05/18/17 17:27 Alphagan 0.2% Opht OU 1 applic TID ELINA Administration Collagenase 0 gm 05/12/17 11:15 05/18/17 09:26 Santyl TOP 1 applic DAILY ELINA Administration Epoetin Maxwell 10,000 unit 04/27/17 12:00 05/18/17 11:07 Procrit IV 10,000 unit MWF ELINA Administration Ergocalciferol 1 cap 04/11/17 22:30 05/16/17 22:02 Drisdol 50,000 Intl Units Cap PO 1 cap Q7D ELINA Administration Hydrocortisone Sodium Succinate 50 mg 05/17/17 12:45 05/18/17 13:00 Solu-Cortef IV 50 mg Q8H ELINA Administration Linezolid 600 mg in 300 mls @ 200 mls/hr 05/12/17 22:00 05/18/17 09:27 Zyvox 600mg/300ml D5w IVPB 200 mls/hr Q12 ELINA Administration Propofol 1,000 mg in 100 mls @ 1.762 mls/hr 05/13/17 15:41 05/13/17 20:00 Diprivan IV 10 mcg/kg/min .Q24H PRN 3.524 mls/hr TITRATE PER MD ORDER Titration Protocol 5 MCG/KG/MIN Micafungin Sodium 100 mg/ 100 mls @ 100 mls/hr 05/14/17 20:00 05/17/17 19:55 Sodium Chloride IV 100 mls/hr Q24H ELINA Administration Norepinephrine Bitartrate 8 mg 250 mls @ 7.5 mls/hr 05/16/17 07:13 05/18/17 13:30 / Sodium Chloride IV 2.5 mcg/min .Q24H PRN 4.68 mls/hr TITRATE PER MD ORDER Titration Protocol 4 MCG/MIN Gentamicin Sulfate/Sodium Chloride 80 mg in 100 mls @ 100 mls/hr 05/17/17 13: 00 05/18/17 13:01 Gentamicin Iv 80 Mg Premix IVPB 100 mls/hr Q24H ELINA Administration Dopamine HCl/Dextrose 400 mg in 250 mls @ 4.5 mls/hr 05/18/17 11:00 05/18/17 12:14 Dopamine 400mg/250ml D5w IV 0 mcg/kg/min .Q24H PRN 0 mls/hr TITRATE PER MD ORDER Titration Protocol 2 MCG/KG/MIN Insulin Glargine 10 unit 05/14/17 22:00 05/18/17 09:37 Lantus SC Not Given AMHS ELINA Insulin Human Regular 0 unit 05/14/17 21:05 05/18/17 15:56 Novolin R SC Not Given Q4 ELINA Protocol Latanoprost 0.02 ml 04/12/17 22:00 05/17/17 21:50 Xalatan Opht OU 0.02 ml HS ELINA Administration Midodrine 10 mg 04/27/17 11:04 05/09/17 11:02 Proamatine PO 10 mg ONCE PRN Administration Diastolic blood pressure Nystatin 1 gm 05/11/17 15:51 05/18/17 15:54 Nystop Topical Powder TOP 1 applic Q8H ELINA Administration Pantoprazole Sodium 40 mg 05/17/17 10:00 05/18/17 09:27 Protonix Inj IVP 40 mg DAILY ELINA Administration Potassium Phos/Sodium Phos 1 pkt 05/13/17 09:00 05/18/17 17:27 Neutra-Phos PO 1 pkt BIDPC ELINA Administration Rosuvastatin Calcium 10 mg 04/12/17 22:00 05/17/17 22:00 Crestor PO Not Given HS LEINA Thiamine HCl 100 mg 04/11/17 22:30 05/18/17 14:00 Vitamin B1 Inj IV 100 mg Q8H ELINA Administration Timolol Maleate 1 drop 04/12/17 10:00 05/18/17 17:27 Timoptic 0.5% Ophth Soln OU 1 drop BID ELINA Administration Vitamin B Complex/Vit C/Folic Acid 1 tab 04/12/17 08:00 05/18/17 08:11 Nephro-Alonzo PO 1 tab 0800 ELINA Administration - Patient Studies Lab Studies: Lab Studies 05/18/17 05/18/17 05/18/17 Range/Units 15:38 11:49 09:15 WBC (4.8-10.8) K/uL RBC (3.80-5.20) Mil/uL Hgb (11.0-16.0) g/dL Hct (34.0-47.0) % MCV (81.0-99.0) fL MCH (27.0-31.0) pg MCHC (33.0-37.0) g/dL RDW (11.5-14.5) % Plt Count (130-400) K/uL MPV (7.2-11.7) fL Neut % (Auto) (50.0-75.0) % Lymph % (Auto) (20.0-40.0) % [place] % (Auto) (0.0-10.0) % Eos % (Auto) (0.0-4.0) % Baso % (Auto) (0.0-2.0) % Neut # (1.8-7.0) K/uL Lymph # (1.0-4.3) K/uL [place] # (0.0-0.8) K/uL Eos # (0.0-0.7) K/uL Baso # (0.0-0.2) K/uL Neutrophils % (Manual) (50-75) % Band Neutrophils % (0-2) % Lymphocytes % (Manual) (20-40) % Monocytes % (Manual) (0-10) % Nucleated RBC % (0-0) % Toxic Granulation Platelet Estimate (NORMAL) Large Platelets Giant Platelets Polychromasia Hypochromasia (manual) Poikilocytosis (manual Anisocytosis (manual) Macrocytosis (manual) Ovalocytes [place] Cells PT (9.7-12.2) SECONDS INR APTT (21-34) SECONDS Puncture Site pCO2 (35-45) mm/Hg pO2 (80-100) mm/Hg HCO3 (21-28) mmol/L ABG pH (7.35-7.45) ABG Total CO2 (22-28) mmol/L ABG O2 Saturation (95-98) % ABG Base Excess (-2.0-3.0) mmol/L ABG Hemoglobin (11.7-17.4) g/dL ABG Carboxyhemoglobin (0.5-1.5) % POC ABG HHb (Measured) (0.0-5.0) % ABG Methemoglobin (0.0-3.0) % Joey Test A-a O2 Difference mm/Hg Respiratory Index Hgb O2 Saturation (95.0-98.0) % Vent Mode Mechanical Rate FiO2 % Tidal Volume PEEP Crit Value Called To Crit Value Called By Crit Value Read Back Blood Gas Notified Time Sodium (132-148) mmol/L Potassium (3.6-5.2) mmol/L Chloride (98-107) mmol/L Carbon Dioxide (22-30) mmol/L Anion Gap (10-20) BUN (7-17) mg/dL Creatinine (0.7-1.2) mg/dL Est GFR ( Amer) Est GFR (Non-Af Amer) POC Glucose (mg/dL) 145 H 152 H (65-110) mg/dL Random Glucose (65-105) mg/dL Calcium (8.6-10.4) mg/dl Total Bilirubin (0.2-1.3) mg/dL AST (14-36) U/L ALT (9-52) U/L Alkaline Phosphatase (38-126) U/L Total Protein (6.3-8.3) g/dL Albumin (3.5-5.0) g/dL Globulin (2.2-3.9) gm/dL Albumin/Globulin Ratio (1.0-2.1) Carcinoembryonic Ag 5.3 H (0-3.0) ng/mL 05/18/17 05/18/17 05/18/17 Range/Units 09:15 07:41 06:26 WBC (4.8-10.8) K/uL RBC (3.80-5.20) Mil/uL Hgb (11.0-16.0) g/dL Hct (34.0-47.0) % MCV (81.0-99.0) fL MCH (27.0-31.0) pg MCHC (33.0-37.0) g/dL RDW (11.5-14.5) % Plt Count (130-400) K/uL MPV (7.2-11.7) fL Neut % (Auto) (50.0-75.0) % Lymph % (Auto) (20.0-40.0) % [place] % (Auto) (0.0-10.0) % Eos % (Auto) (0.0-4.0) % Baso % (Auto) (0.0-2.0) % Neut # (1.8-7.0) K/uL Lymph # (1.0-4.3) K/uL [place] # (0.0-0.8) K/uL Eos # (0.0-0.7) K/uL Baso # (0.0-0.2) K/uL Neutrophils % (Manual) (50-75) % Band Neutrophils % (0-2) % Lymphocytes % (Manual) (20-40) % Monocytes % (Manual) (0-10) % Nucleated RBC % (0-0) % Toxic Granulation Platelet Estimate (NORMAL) Large Platelets Giant Platelets Polychromasia Hypochromasia (manual) Poikilocytosis (manual Anisocytosis (manual) Macrocytosis (manual) Ovalocytes [place] Cells PT 22.8 H D (9.7-12.2) SECONDS INR 2.0 D APTT 37 H D (21-34) SECONDS Puncture Site pCO2 (35-45) mm/Hg pO2 (80-100) mm/Hg HCO3 (21-28) mmol/L ABG pH (7.35-7.45) ABG Total CO2 (22-28) mmol/L ABG O2 Saturation (95-98) % ABG Base Excess (-2.0-3.0) mmol/L ABG Hemoglobin (11.7-17.4) g/dL ABG Carboxyhemoglobin (0.5-1.5) % POC ABG HHb (Measured) (0.0-5.0) % ABG Methemoglobin (0.0-3.0) % Joey Test A-a O2 Difference mm/Hg Respiratory Index Hgb O2 Saturation (95.0-98.0) % Vent Mode Mechanical Rate FiO2 % Tidal Volume PEEP Crit Value Called To Crit Value Called By Crit Value Read Back Blood Gas Notified Time Sodium 136 (132-148) mmol/L Potassium 4.9 (3.6-5.2) mmol/L Chloride 105 (98-107) mmol/L Carbon Dioxide 12 L (22-30) mmol/L Anion Gap 24 H (10-20) BUN 56 H (7-17) mg/dL Creatinine 2.6 H (0.7-1.2) mg/dL Est GFR ( Amer) 22 Est GFR (Non-Af Amer) 18 POC Glucose (mg/dL) 133 H (65-110) mg/dL Random Glucose 164 H (65-105) mg/dL Calcium 6.5 L (8.6-10.4) mg/dl Total Bilirubin 1.3 (0.2-1.3) mg/dL AST 2976 H (14-36) U/L ALT 552 H (9-52) U/L Alkaline Phosphatase 359 H D (38-126) U/L Total Protein 3.7 L (6.3-8.3) g/dL Albumin 1.7 L (3.5-5.0) g/dL Globulin 2.0 L (2.2-3.9) gm/dL Albumin/Globulin Ratio 0.9 L (1.0-2.1) Carcinoembryonic Ag (0-3.0) ng/mL 05/18/17 05/18/17 05/18/17 Range/Units 06:22 05:17 04:49 WBC 41.5 H* (4.8-10.8) K/uL RBC 3.10 L (3.80-5.20) Mil/uL Hgb 9.3 L (11.0-16.0) g/dL Hct 29.1 L (34.0-47.0) % MCV 93.8 (81.0-99.0) fL MCH 30.0 (27.0-31.0) pg MCHC 32.0 L (33.0-37.0) g/dL RDW 17.4 H (11.5-14.5) % Plt Count 324 (130-400) K/uL MPV 10.6 (7.2-11.7) fL Neut % (Auto) 90.8 H (50.0-75.0) % Lymph % (Auto) 6.8 L (20.0-40.0) % [place] % (Auto) 1.8 (0.0-10.0) % Eos % (Auto) 0.1 (0.0-4.0) % Baso % (Auto) 0.5 (0.0-2.0) % Neut # 37.7 H (1.8-7.0) K/uL Lymph # 2.8 (1.0-4.3) K/uL [place] # 0.7 (0.0-0.8) K/uL Eos # 0.1 (0.0-0.7) K/uL Baso # 0.2 (0.0-0.2) K/uL Neutrophils % (Manual) 85 H (50-75) % Band Neutrophils % 6 H (0-2) % Lymphocytes % (Manual) 7 L (20-40) % Monocytes % (Manual) 2 (0-10) % Nucleated RBC % 5 H (0-0) % Toxic Granulation Present Platelet Estimate Normal (NORMAL) Large Platelets Present Giant Platelets Present Polychromasia Slight Hypochromasia (manual) Slight Poikilocytosis (manual Slight Anisocytosis (manual) Moderate Macrocytosis (manual) Slight Ovalocytes Slight [place] Cells Slight PT (9.7-12.2) SECONDS INR APTT (21-34) SECONDS Puncture Site Rr pCO2 19 L* (35-45) mm/Hg pO2 165 H (80-100) mm/Hg HCO3 13.0 L (21-28) mmol/L ABG pH 7.30 L (7.35-7.45) ABG Total CO2 9.9 L (22-28) mmol/L ABG O2 Saturation 100.9 H (95-98) % ABG Base Excess -15.3 L (-2.0-3.0) mmol/L ABG Hemoglobin 9.0 L (11.7-17.4) g/dL ABG Carboxyhemoglobin 2.5 H (0.5-1.5) % POC ABG HHb (Measured) -0.9 L (0.0-5.0) % ABG Methemoglobin 1.1 (0.0-3.0) % Joey Test Pos A-a O2 Difference 96.0 mm/Hg Respiratory Index 0.6 Hgb O2 Saturation 97.3 (95.0-98.0) % Vent Mode Prvc Mechanical Rate 15 FiO2 40.0 % Tidal Volume 450 PEEP 5 Crit Value Called To Rachelle cornejo manager agriculture Crit Value Called By Amparo reynolds rt Crit Value Read Back Y Blood Gas Notified Time 630 Sodium (132-148) mmol/L Potassium (3.6-5.2) mmol/L Chloride (98-107) mmol/L Carbon Dioxide (22-30) mmol/L Anion Gap (10-20) BUN (7-17) mg/dL Creatinine (0.7-1.2) mg/dL Est GFR ( Amer) Est GFR (Non-Af Amer) POC Glucose (mg/dL) 143 H (65-110) mg/dL Random Glucose (65-105) mg/dL Calcium (8.6-10.4) mg/dl Total Bilirubin (0.2-1.3) mg/dL AST (14-36) U/L ALT (9-52) U/L Alkaline Phosphatase (38-126) U/L Total Protein (6.3-8.3) g/dL Albumin (3.5-5.0) g/dL Globulin (2.2-3.9) gm/dL Albumin/Globulin Ratio (1.0-2.1) Carcinoembryonic Ag (0-3.0) ng/mL 05/17/17 05/17/17 Range/Units 23:51 20:16 WBC (4.8-10.8) K/uL RBC (3.80-5.20) Mil/uL Hgb (11.0-16.0) g/dL Hct (34.0-47.0) % MCV (81.0-99.0) fL MCH (27.0-31.0) pg MCHC (33.0-37.0) g/dL RDW (11.5-14.5) % Plt Count (130-400) K/uL MPV (7.2-11.7) fL Neut % (Auto) (50.0-75.0) % Lymph % (Auto) (20.0-40.0) % [place] % (Auto) (0.0-10.0) % Eos % (Auto) (0.0-4.0) % Baso % (Auto) (0.0-2.0) % Neut # (1.8-7.0) K/uL Lymph # (1.0-4.3) K/uL [place] # (0.0-0.8) K/uL Eos # (0.0-0.7) K/uL Baso # (0.0-0.2) K/uL Neutrophils % (Manual) (50-75) % Band Neutrophils % (0-2) % Lymphocytes % (Manual) (20-40) % Monocytes % (Manual) (0-10) % Nucleated RBC % (0-0) % Toxic Granulation Platelet Estimate (NORMAL) Large Platelets Giant Platelets Polychromasia Hypochromasia (manual) Poikilocytosis (manual Anisocytosis (manual) Macrocytosis (manual) Ovalocytes [place] Cells PT (9.7-12.2) SECONDS INR APTT (21-34) SECONDS Puncture Site pCO2 (35-45) mm/Hg pO2 (80-100) mm/Hg HCO3 (21-28) mmol/L ABG pH (7.35-7.45) ABG Total CO2 (22-28) mmol/L ABG O2 Saturation (95-98) % ABG Base Excess (-2.0-3.0) mmol/L ABG Hemoglobin (11.7-17.4) g/dL ABG Carboxyhemoglobin (0.5-1.5) % POC ABG HHb (Measured) (0.0-5.0) % ABG Methemoglobin (0.0-3.0) % Joey Test A-a O2 Difference mm/Hg Respiratory Index Hgb O2 Saturation (95.0-98.0) % Vent Mode Mechanical Rate FiO2 % Tidal Volume PEEP Crit Value Called To Crit Value Called By Crit Value Read Back Blood Gas Notified Time Sodium (132-148) mmol/L Potassium (3.6-5.2) mmol/L Chloride (98-107) mmol/L Carbon Dioxide (22-30) mmol/L Anion Gap (10-20) BUN (7-17) mg/dL Creatinine (0.7-1.2) mg/dL Est GFR ( Amer) Est GFR (Non-Af Amer) POC Glucose (mg/dL) 129 H 117 H (65-110) mg/dL Random Glucose (65-105) mg/dL Calcium (8.6-10.4) mg/dl Total Bilirubin (0.2-1.3) mg/dL AST (14-36) U/L ALT (9-52) U/L Alkaline Phosphatase (38-126) U/L Total Protein (6.3-8.3) g/dL Albumin (3.5-5.0) g/dL Globulin (2.2-3.9) gm/dL Albumin/Globulin Ratio (1.0-2.1) Carcinoembryonic Ag (0-3.0) ng/mL Laboratory Results - last 24 hr 05/17/17 05/17/17 05/18/17 20:16 23:51 04:49 WBC RBC Hgb Hct MCV MCH MCHC RDW Plt Count MPV Neut % (Auto) Lymph % (Auto) [place] % (Auto) Eos % (Auto) Baso % (Auto) Neut # Lymph # [place] # Eos # Baso # Neutrophils % (Manual) Band Neutrophils % Lymphocytes % (Manual) Monocytes % (Manual) Nucleated RBC % Toxic Granulation Platelet Estimate Large Platelets Giant Platelets Polychromasia Hypochromasia (manual) Poikilocytosis (manual Anisocytosis (manual) Macrocytosis (manual) Ovalocytes Karen Cells PT INR APTT Puncture Site pCO2 pO2 HCO3 ABG pH ABG Total CO2 ABG O2 Saturation ABG Base Excess ABG Hemoglobin ABG Carboxyhemoglobin POC ABG HHb (Measured) ABG Methemoglobin Joey Test A-a O2 Difference Respiratory Index Hgb O2 Saturation Vent Mode Mechanical Rate FiO2 Tidal Volume PEEP Crit Value Called To Crit Value Called By Crit Value Read Back Blood Gas Notified Time Sodium Potassium Chloride Carbon Dioxide Anion Gap BUN Creatinine Est GFR ( Amer) Est GFR (Non-Af Amer) POC Glucose (mg/dL) 117 H 129 H 143 H Random Glucose Calcium Total Bilirubin AST ALT Alkaline Phosphatase Total Protein Albumin Globulin Albumin/Globulin Ratio Carcinoembryonic Ag 05/18/17 05/18/17 05/18/17 05:17 06:22 06:26 WBC 41.5 H* RBC 3.10 L Hgb 9.3 L Hct 29.1 L MCV 93.8 MCH 30.0 MCHC 32.0 L RDW 17.4 H Plt Count 324 MPV 10.6 Neut % (Auto) 90.8 H Lymph % (Auto) 6.8 L [place] % (Auto) 1.8 Eos % (Auto) 0.1 Baso % (Auto) 0.5 Neut # 37.7 H Lymph # 2.8 [place] # 0.7 Eos # 0.1 Baso # 0.2 Neutrophils % (Manual) 85 H Band Neutrophils % 6 H Lymphocytes % (Manual) 7 L Monocytes % (Manual) 2 Nucleated RBC % 5 H Toxic Granulation Present Platelet Estimate Normal Large Platelets Present Giant Platelets Present Polychromasia Slight Hypochromasia (manual) Slight Poikilocytosis (manual Slight Anisocytosis (manual) Moderate Macrocytosis (manual) Slight Ovalocytes Slight Karen Cells Slight PT INR APTT Puncture Site Rr pCO2 19 L* pO2 165 H HCO3 13.0 L ABG pH 7.30 L ABG Total CO2 9.9 L ABG O2 Saturation 100.9 H ABG Base Excess -15.3 L ABG Hemoglobin 9.0 L ABG Carboxyhemoglobin 2.5 H POC ABG HHb (Measured) -0.9 L ABG Methemoglobin 1.1 Joey Test Pos A-a O2 Difference 96.0 Respiratory Index 0.6 Hgb O2 Saturation 97.3 Vent Mode Prvc Mechanical Rate 15 FiO2 40.0 Tidal Volume 450 PEEP 5 Crit Value Called To Rachelle cornejo manager agriculture Crit Value Called By Amparo reynolds rt Crit Value Read Back Y Blood Gas Notified Time 630 Sodium 136 Potassium 4.9 Chloride 105 Carbon Dioxide 12 L Anion Gap 24 H BUN 56 H Creatinine 2.6 H Est GFR ( Amer) 22 Est GFR (Non-Af Amer) 18 POC Glucose (mg/dL) Random Glucose 164 H Calcium 6.5 L Total Bilirubin 1.3 AST 2976 H ALT 552 H Alkaline Phosphatase 359 H D Total Protein 3.7 L Albumin 1.7 L Globulin 2.0 L Albumin/Globulin Ratio 0.9 L Carcinoembryonic Ag 05/18/17 05/18/17 05/18/17 07:41 09:15 09:15 WBC RBC Hgb Hct MCV MCH MCHC RDW Plt Count MPV Neut % (Auto) Lymph % (Auto) [place] % (Auto) Eos % (Auto) Baso % (Auto) Neut # Lymph # [place] # Eos # Baso # Neutrophils % (Manual) Band Neutrophils % Lymphocytes % (Manual) Monocytes % (Manual) Nucleated RBC % Toxic Granulation Platelet Estimate Large Platelets Giant Platelets Polychromasia Hypochromasia (manual) Poikilocytosis (manual Anisocytosis (manual) Macrocytosis (manual) Ovalocytes Karen Cells PT 22.8 H D INR 2.0 D APTT 37 H D Puncture Site pCO2 pO2 HCO3 ABG pH ABG Total CO2 ABG O2 Saturation ABG Base Excess ABG Hemoglobin ABG Carboxyhemoglobin POC ABG HHb (Measured) ABG Methemoglobin Joey Test A-a O2 Difference Respiratory Index Hgb O2 Saturation Vent Mode Mechanical Rate FiO2 Tidal Volume PEEP Crit Value Called To Crit Value Called By Crit Value Read Back Blood Gas Notified Time Sodium Potassium Chloride Carbon Dioxide Anion Gap BUN Creatinine Est GFR ( Amer) Est GFR (Non-Af Amer) POC Glucose (mg/dL) 133 H Random Glucose Calcium Total Bilirubin AST ALT Alkaline Phosphatase Total Protein Albumin Globulin Albumin/Globulin Ratio Carcinoembryonic Ag 5.3 H 05/18/17 05/18/17 11:49 15:38 WBC RBC Hgb Hct MCV MCH MCHC RDW Plt Count MPV Neut % (Auto) Lymph % (Auto) [place] % (Auto) Eos % (Auto) Baso % (Auto) Neut # Lymph # [place] # Eos # Baso # Neutrophils % (Manual) Band Neutrophils % Lymphocytes % (Manual) Monocytes % (Manual) Nucleated RBC % Toxic Granulation Platelet Estimate Large Platelets Giant Platelets Polychromasia Hypochromasia (manual) Poikilocytosis (manual Anisocytosis (manual) Macrocytosis (manual) Ovalocytes Karen Cells PT INR APTT Puncture Site pCO2 pO2 HCO3 ABG pH ABG Total CO2 ABG O2 Saturation ABG Base Excess ABG Hemoglobin ABG Carboxyhemoglobin POC ABG HHb (Measured) ABG Methemoglobin Joey Test A-a O2 Difference Respiratory Index Hgb O2 Saturation Vent Mode Mechanical Rate FiO2 Tidal Volume PEEP Crit Value Called To Crit Value Called By Crit Value Read Back Blood Gas Notified Time Sodium Potassium Chloride Carbon Dioxide Anion Gap BUN Creatinine Est GFR ( Amer) Est GFR (Non-Af Amer) POC Glucose (mg/dL) 152 H 145 H Random Glucose Calcium Total Bilirubin AST ALT Alkaline Phosphatase Total Protein Albumin Globulin Albumin/Globulin Ratio Carcinoembryonic Ag Fingerstick Blood Sugar Results: 145 Assessment/Plan (1) Diabetes mellitus Assessment and plan: 71-year-old female with a history of hypertension, diabetes, hypercholesterolemia, peripheral vascular disease, left below-knee and petition , most likely infected stump at this time. End-stage renal disease on dialysis. Hypertension. Unclear at this time. Most likely sepsis. Currently an antibiotic. Will repeat this lactate level again. Less likely is ischemic bowel. Abdomen is benign at this time. Continue to monitor. The lactate is normal patient can be transferred to floor. Current Visit: Yes Status: Acute (2) History of CHF (congestive heart failure) Current Visit: Yes Status: Acute (3) S/P BKA (below knee amputation) Current Visit: Yes Status: Acute Priority: High
[2017-05-18] MEDS: Micafungin 100 MG in Sodium Chloride 0.9% 100 ML IV SCH (19:50)
--- NOTE | 2017-05-18 20:04 | CP.PCM.PN ---
Subjective - Date & Time of Evaluation Date of Evaluation: 05/18/17 Time of Evaluation: 08:00 - Subjective Subjective: PGY1 Medicine Note for Dr. Myrick Patient seen and examined at bedside this morning. Patient intubated, currently undergoing dialysis treatment. ROS unattainable. Objective - Vital Signs/Intake and Output Vital Signs (last 24 hours): Temp Pulse Resp BP Pulse Ox 98.9 F 94 H 34 H 105/36 L 100 05/18/17 16:00 05/18/17 19:00 05/18/17 19:00 05/18/17 19:00 05/18/17 19:00 Intake and Output: 05/18/17 05/19/17 18:59 06:59 Intake Total 480.4 4.6 Output Total 25 Balance 455.4 4.6 - Medications Medications: Current Medications Acetaminophen (Tylenol 650mg/20.3ml Solution Ud) 650 mg PO Q6 PRN PRN Reason: Fever >100.4 F Last Admin: 05/17/17 15:42 Dose: 650 mg Albumin Human (Albumin Human 5% (12.5 Gm/250 Ml)) 12.5 gm IV MWF PRN PRN Reason: hypotension Last Admin: 05/18/17 12:00 Dose: 12.5 gm Apixaban (Eliquis) 5 mg PO BID [facility] Last Admin: 05/15/17 19:20 Dose: 5 mg Brimonidine Tartrate (Alphagan 0.2% Opht) 1 ml OU TID ELINA Last Admin: 05/18/17 17:27 Dose: 1 applic Collagenase (Santyl) 0 gm TOP DAILY [facility] Last Admin: 05/18/17 09:26 Dose: 1 applic Epoetin Maxwell (Procrit) 10,000 unit IV MWF ELINA Last Admin: 05/18/17 11:07 Dose: 10,000 unit Ergocalciferol (Drisdol 50,000 Intl Units Cap) 1 cap PO Q7D ELINA Last Admin: 05/16/17 22:02 Dose: 1 cap Hydrocortisone Sodium Succinate (Solu-Cortef) 50 mg IV Q8H ELINA Last Admin: 05/18/17 19:55 Dose: 50 mg Linezolid (Zyvox 600mg/300ml D5w) 600 mg in 300 mls @ 200 mls/hr IVPB Q12 LEINA Last Admin: 05/18/17 09:27 Dose: 200 mls/hr Propofol (Diprivan) 1,000 mg in 100 mls @ 1.762 mls/hr IV .Q24H PRN; Protocol; 5 MCG/KG/MIN PRN Reason: TITRATE PER MD ORDER Last Titration: 05/13/17 20:00 Dose: 10 mcg/kg/min, 3.524 mls/hr Micafungin Sodium 100 mg/ (Sodium Chloride) 100 mls @ 100 mls/hr IV Q24H ELINA Last Admin: 05/18/17 19:50 Dose: 100 mls/hr Norepinephrine Bitartrate 8 mg (/ Sodium Chloride) 250 mls @ 7.5 mls/hr IV .Q24H PRN; Protocol; 4 MCG/MIN PRN Reason: TITRATE PER MD ORDER Last Titration: 05/18/17 13:30 Dose: 2.5 mcg/min, 4.68 mls/hr Gentamicin Sulfate/Sodium Chloride (Gentamicin Iv 80 Mg Premix) 80 mg in 100 mls @ 100 mls/hr IVPB Q24H ELINA Last Admin: 05/18/17 13:01 Dose: 100 mls/hr Dopamine HCl/Dextrose (Dopamine 400mg/250ml D5w) 400 mg in 250 mls @ 4.5 mls/ hr IV .Q24H PRN; Protocol; 2 MCG/KG/MIN PRN Reason: TITRATE PER MD ORDER Last Titration: 05/18/17 12:14 Dose: 0 mcg/kg/min, 0 mls/hr Insulin Glargine (Lantus) 10 unit SC AMHS ELINA Last Admin: 05/18/17 09:37 Dose: Not Given Insulin Human Regular (Novolin R) 0 unit SC Q4 ELINA PRN Reason: Protocol Last Admin: 05/18/17 15:56 Dose: Not Given Latanoprost (Xalatan Opht) 0.02 ml OU HS ELINA Last Admin: 05/17/17 21:50 Dose: 0.02 ml Midodrine (Proamatine) 10 mg PO ONCE PRN PRN Reason: Diastolic blood pressure Last Admin: 05/09/17 11:02 Dose: 10 mg Nystatin (Nystop Topical Powder) 1 gm TOP Q8H ELINA Last Admin: 05/18/17 15:54 Dose: 1 applic Pantoprazole Sodium (Protonix Inj) 40 mg IVP DAILY [facility] Last Admin: 05/18/17 09:27 Dose: 40 mg Potassium Phos/Sodium Phos (Neutra-Phos) 1 pkt PO BIDPC [facility] Last Admin: 05/18/17 17:27 Dose: 1 pkt Rosuvastatin Calcium (Crestor) 10 mg PO HS [facility] Last Admin: 05/17/17 22:00 Dose: Not Given Thiamine HCl (Vitamin B1 Inj) 100 mg IV Q8H [facility] Last Admin: 05/18/17 14:00 Dose: 100 mg Timolol Maleate (Timoptic 0.5% Ophth Soln) 1 drop OU BID [facility] Last Admin: 05/18/17 17:27 Dose: 1 drop Vitamin B Complex/Vit C/Folic Acid (Nephro-Alonzo) 1 tab PO 0800 [facility] Last Admin: 05/18/17 08:11 Dose: 1 tab - Labs Labs: 05/18/17 06:22 05/18/17 06:26 PT 22.8 SECONDS (9.7-12.2) H D 05/18/17 09:15 INR 2.0 D 05/18/17 09:15 APTT 37 SECONDS (21-34) H D 05/18/17 09:15 - Constitutional Appears: Chronically Ill - Head Exam Head Exam: ATRAUMATIC, NORMOCEPHALIC - ENT Exam ENT Exam: Mucous Membranes Moist - Respiratory Exam Respiratory Exam: Clear to Ausculation Bilateral. absent: Respiratory Distress Additional comments: intubated. - Cardiovascular Exam Cardiovascular Exam: REGULAR RHYTHM Additional comments: hypotensive. - Extremities Exam Additional comments: s/p L AKA - Neurological Exam Neurological Exam: Altered (sedated/intubated) - Skin Skin Exam: Dry, Warm Assessment and Plan - Assessment and Plan (Free Text) Plan: Neuro: Propofol drip Dialudid 0.5 mg IVP Q6H HEENT: brimonidine 0.2% 1 ml OU TID latanoprost 0.02 ml OU timolol 1 drop OU BID Respiratory: Intubated LLL pneumonia CXR 05/18: Moderate left pleural effusion. Underlying atelectasis/ pneumonia cannot be excluded. No change. Chest CT angio: Filling defects are noted at both upper lobes pulmonary arteries suggestive of pulmonary embolus. Large bilateral effusion. Mild cardiomegaly. [id number] periocardial effusion. [id number] anasarca. Lower lobe atelectasis due to pleural effusion. HEM: PLT: 324 Eliquis 5mg PO daily Procrit 05/15: 6.8/21.2 05/16: 8.8/25.7 after 1 unit pRBC 05/18: 9.3/29.1 Nephro: I - 2133 O - 150 ESRD on hemodialysis - went under HD today. Dr. Ambrose consulted, help appreciated Pt undergoes hemodialysis Tues/Thurs/Sat Ergocalcierol 1 capsule PO Q7D Procrit Fluid, Electrolytes, Diet: Netrophos BID Tube feeds Thiamine Vitamin B complex 05/15: Potassium 2.4 - Potassium Phosphate 15 mmole 255 mls @ 42.5 mls/hr Repeat CMP, magnesium and phosphorous after dialysis 05/16: Potassium 3.9 Endo: DM ISS Lantus 10 units SC AMHS Accucheck Glucose Hypoglycemic protocol Cardio: hx of diastolic CHF MAP > 65, EF 61% Midodrine 10 mg PRN Crestor 10 mg PO HS Timolol Maleate 1 drop OU BID ELINA 05/16: Levophed drip for hypotension 05/18: Dopamine drip for hypotension ID: Sepsis WBC 41.5 Lactate 5.3 on 05/11 and 05/13. 3.0 on 05/15 procal > 200 (05/12) Tmax overnight 102.9 wound culture showing candidia tissue culture negative blood culture negative x 5d Infecious Disease, Dr. Wellington consulted, help appreciated: recommends removing PICC line as source of infection Surgery, Dr. Broussard consulted, help appreciated: Examined AV fistula site due to poor flow. Recommendation is to insert permactah and Right IJ triple lumen Fluconazole 200 mg IVPB q24h Nystatin 1 g TOP Q8 Linezolid 600 mg Q12 Cefepime 1 g QD Wound vac for left AKA wound - not likely the source of elevated WBC count. Plans to change wound vac today Permacath was placed by Dr. Broussard 05/16 GI AST 20 ALT 22 Prophylactic Care GI: Protonix 40 mg PO daily PEG tube feedings SCD to right lower extremity Patient will remain in ICU. Case discussed with Dr. Myrick. Gokul Penan PGY1
[2017-05-18] MEDS: Latanoprost 2.5 ml Opht Soln OU SCH (21:50)
[2017-05-19] MEDS: Nystatin 100,000 Units/gm Topical Pow(15 gm) TOP SCH ×3 (00:50→16:45)
[2017-05-19] MEDS: (Novolin R) Insulin Human Regular 100 units/ml vial SC SCH ×6 (04:50→20:18)
[2017-05-19] MEDS: Thiamine 100 mg/ml Inj IV SCH ×3 (05:30→21:58)
[2017-05-19 06:06] LABS: ABG ALLEN TEST POS; ABG MECHANICAL RATE 15; ARTERIAL BLOOD GAS MODE PRVC; ARTERIAL BLOOD HGB O2 SAT 96.8 % (95.0-98.0); ATERIAL BLOOD GAS PEEP 5; CARBOXYHEMOGLOBIN 2.3 % (0.5-1.5); DRAW SITE RR; HHB -0.4 % (0.0-5.0); METHEMOGLOBIN 1.3 % (0.0-3.0)
[2017-05-19] MEDS ORDERED: Sodium Bicarbonate (8.4%) 50 Meq Syringe IVP STA (06:20)
[2017-05-19 06:30] LABS: BASO # 0.3 K/uL (0.0-0.2); BASO % 1.1 % (0.0-2.0); EOS # 0.3 K/uL (0.0-0.7); EOS % 1.1 % (0.0-4.0); HEMATOCRIT 20.6 % (34.0-47.0); LYMPH # 3.2 K/uL (1.0-4.3); LYMPH % 10.3 % (20.0-40.0); MEAN CELL VOLUME 100.3 fL (81.0-99.0); MEAN CORPUSCULAR HEMOGLOBIN 30.6 pg (27.0-31.0); MEAN CORPUSCULAR HGB CONC 30.5 g/dL (33.0-37.0); MEAN PLATELET VOLUME 10.9 fL (7.2-11.7); MONO # 0.3 K/uL (0.0-0.8); MONO % 0.8 % (0.0-10.0); NRBC % 3.6 % (0.0-2.0); RED CELL DISTRIBUTION WIDTH 19.9 % (11.5-14.5); WHITE BLOOD COUNT 30.5 K/uL (4.8-10.8)
[2017-05-19 07:22] LABS: ALB/GLOB RATIO 1.1 (1.0-2.1); ALKALINE PHOSPHATASE 324 U/L (38-126); ALT/SGPT 339 U/L (9-52); AST/SGOT > 750 U/L (14-36); BILIRUBIN,TOTAL 1.1 mg/dL (0.2-1.3); BLOOD UREA NITROGEN 54 mg/dL (7-17); CALCIUM 6.1 mg/dl (8.6-10.4); CARBON DIOXIDE 6 mmol/L (22-30); CHLORIDE 102 mmol/L (98-107); GFR AFRICAN-AMERICAN 21; GLUCOSE,RANDOM 225 mg/dL (65-105); POTASSIUM 5.6 mmol/L (3.6-5.2); SODIUM 134 mmol/L (132-148); TOTAL PROTEIN 3.4 g/dL (6.3-8.3)
[2017-05-19] MEDS: Multivitamin Vitamin B Complex (Nephro-Vite) Tab PO SCH (08:16)
[2017-05-19] MEDS: Albumin Human 25% (12.5 gm/50 ml) IV SCH ×3 (08:16→21:57)
[2017-05-19] MEDS: Potassium & Sodium Phosphate PO SCH ×2 (08:51→17:30)
[2017-05-19] MEDS: Linezolid 600 mg in D5W 300 ml 600 MG/300 ML BAG IVPB SCH ×2 (09:01→21:57)
[2017-05-19] MEDS: Brimonidine 0.2% Opth Sol (5ml) OU SCH ×3 (09:03→17:28)
[2017-05-19] MEDS: (Lantus) Insulin Glargine, Recombinant SC SCH ×2 (09:04→21:58)
[2017-05-19] MEDS: Sodium Bicarbonate 8.4% 150 MEQ in Sodium Chloride 0.45% 850 ML IV SCH (09:47)
--- NOTE | 2017-05-19 09:58 | RAD ---
HISTORY: Follow up Intubation COMPARISON: Chest portable 05/18/2017 at 0723 hour ;; CT angio PE study 04/16/2017 FINDINGS: LUNGS: Clear right lester thorax ; persistent left pleural effusion with inferred compressive atelectasis left lung base Underlying infiltrate here not excluded PLEURA: Left pleural effusion with left basal compressive atelectasis inferred the underlying left basal infiltrate not excluded CARDIOVASCULAR: Mild cardiomegaly OSSEOUS STRUCTURES: Bilateral shoulder arthrosis VISUALIZED UPPER ABDOMEN: Normal. OTHER FINDINGS: The endotracheal tube terminates 3.5 cm proximal to the chinmay. The right PICC line terminates in the SVC. The right IJV line terminates in the right atrium. 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 Underlying compressive atelectasis inferred. Concomitant underlying left basal infiltrate not excluded. For lines as above similar-appearing
--- NOTE | 2017-05-19 11:06 | CP.CCUPN ---
<Poonam Morel - Last Filed: 05/19/17 16:46> CCU Subjective - Physician Review Subjective (Free Text): 05/19/17 11:03 Patient seen and examined at bedside. No acute events overnight. Patient intubated/sedated. ROS unattainable. CCU Objective - Vital Signs / Intake & Output Vital Signs (Last 4 hours): Vital Signs Pulse Resp BP 05/19/17 07:17 145/14 L 05/19/17 07:16 89 26 H 05/19/17 07:06 78 24 83/21 L Intake and Output (Last 8hrs): Intake & Output 05/18/17 05/19/17 05/19/17 22:59 06:59 14:59 Intake Total 437.1 83.8 129.5 Output Total 25 25 Balance 412.1 58.8 129.5 Weight 130 lb 1.164 oz Intake: IV 48 92 Intake, IV Amount 437.1 35.8 37.5 Right IJ Side Port 37.1 35.8 37.5 Right PICC 400 Output: Drainage 0 Left Knee 0 Urine 0 Urine, Voided 0 Stool 25 25 - Physical Exam Head: Positive for: Atraumatic Pupils: Positive for: PERRL Conjunctiva: Positive for: Normal Mouth: Positive for: Other (ET tube ) Respiratory/Chest: Positive for: Clear to Auscultation, Good Air Exchange, Other (intubated ). Negative for: Respiratory Distress, Accessory Muscle Use, Wheezes, Rales, Rhonchi Cardiovascular: Positive for: Regular Rate and Rhythm Abdomen: Positive for: Feeding Tubes. Negative for: Tenderness, Distention Upper Extremity: Positive for: Edema Lower Extremity: Positive for: Edema, Other (s/p left AKA, wound of surgical site with wound vac ) Neurological: Positive for: Other (Intubated and sedated ) Skin: Positive for: Warm, Dry Psychiatric: Positive for: Alert - Medications Active Medications: Active Medications Generic Name Dose Route Start Last Admin Trade Name Freq PRN Reason Stop Dose Admin Acetaminophen 650 mg 05/13/17 09:40 05/17/17 15:42 Tylenol 650mg/20.3ml Solution Ud PO 650 mg Q6 PRN Administration Fever >100.4 F Albumin Human 12.5 gm 05/13/17 12:00 05/18/17 12:00 Albumin Human 5% (12.5 Gm/250 Ml) IV 12.5 gm MWF PRN Administration hypotension Albumin Human 12.5 gm 05/19/17 08:15 05/19/17 08:16 Albumin Human 25% (12.5 Gm/50 Ml) IV 05/20/17 06:01 12.5 gm Q8 ELINA Administration Apixaban 5 mg 05/13/17 10:00 05/15/17 19:20 Eliquis PO 5 mg BID ELINA Administration Brimonidine Tartrate 1 ml 04/12/17 10:00 05/19/17 09:03 Alphagan 0.2% Opht OU 1 applic TID ELINA Administration Collagenase 0 gm 05/12/17 11:15 05/18/17 09:26 Santyl TOP 1 applic DAILY ELINA Administration Epoetin Maxwell 10,000 unit 04/27/17 12:00 05/18/17 11:07 Procrit IV 10,000 unit MWF ELINA Administration Ergocalciferol 1 cap 04/11/17 22:30 05/16/17 22:02 Drisdol 50,000 Intl Units Cap PO 1 cap Q7D ELINA Administration Hydrocortisone Sodium Succinate 50 mg 05/17/17 12:45 05/19/17 04:50 Solu-Cortef IV 50 mg Q8H ELINA Administration Linezolid 600 mg in 300 mls @ 200 mls/hr 05/12/17 22:00 05/19/17 09:01 Zyvox 600mg/300ml D5w IVPB 200 mls/hr Q12 ELINA Administration Propofol 1,000 mg in 100 mls @ 1.762 mls/hr 05/13/17 15:41 05/13/17 20:00 Diprivan IV 10 mcg/kg/min .Q24H PRN 3.524 mls/hr TITRATE PER MD ORDER Titration Protocol 5 MCG/KG/MIN Micafungin Sodium 100 mg/ 100 mls @ 100 mls/hr 05/14/17 20:00 05/18/17 19:50 Sodium Chloride IV 100 mls/hr Q24H ELINA Administration Norepinephrine Bitartrate 8 mg 250 mls @ 7.5 mls/hr 05/16/17 07:13 05/19/17 10:15 / Sodium Chloride IV 13 mcg/min .Q24H PRN 24.37 mls/hr TITRATE PER MD ORDER Titration Protocol 4 MCG/MIN Gentamicin Sulfate/Sodium Chloride 80 mg in 100 mls @ 100 mls/hr 05/17/17 13: 00 05/18/17 13:01 Gentamicin Iv 80 Mg Premix IVPB 100 mls/hr Q24H ELINA Administration Dopamine HCl/Dextrose 400 mg in 250 mls @ 4.5 mls/hr 05/18/17 11:00 05/18/17 12:14 Dopamine 400mg/250ml D5w IV 0 mcg/kg/min .Q24H PRN 0 mls/hr TITRATE PER MD ORDER Titration Protocol 2 MCG/KG/MIN Sodium Bicarbonate 150 meq/ 1,000 mls @ 60 mls/hr 05/19/17 09:15 05/19/17 09: 47 Sodium Chloride IV 60 mls/hr .[id number] ELINA Administration Insulin Glargine 10 unit 05/14/17 22:00 05/19/17 09:04 Lantus SC Not Given AMHS ELINA Insulin Human Regular 0 unit 05/14/17 21:05 05/19/17 08:09 Novolin R SC Not Given Q4 ELINA Protocol Latanoprost 0.02 ml 04/12/17 22:00 05/18/17 21:50 Xalatan Opht OU 0.02 ml HS ELINA Administration Midodrine 10 mg 04/27/17 11:04 05/09/17 11:02 Proamatine PO 10 mg ONCE PRN Administration Diastolic blood pressure Nystatin 1 gm 05/11/17 15:51 05/19/17 08:17 Nystop Topical Powder TOP 1 applic Q8H ELINA Administration Pantoprazole Sodium 40 mg 05/17/17 10:00 05/19/17 09:07 Protonix Inj IVP 40 mg DAILY ELINA Administration Potassium Phos/Sodium Phos 1 pkt 05/13/17 09:00 05/19/17 08:51 Neutra-Phos PO 1 pkt BIDPC ELINA Administration Rosuvastatin Calcium 10 mg 04/12/17 22:00 05/18/17 21:55 Crestor PO Not Given HS ELINA Thiamine HCl 100 mg 04/11/17 22:30 05/19/17 05:30 Vitamin B1 Inj IV 100 mg Q8H ELINA Administration Timolol Maleate 1 drop 04/12/17 10:00 05/19/17 09:03 Timoptic 0.5% Ophth Soln OU 1 drop BID ELINA Administration Vitamin B Complex/Vit C/Folic Acid 1 tab 04/12/17 08:00 05/19/17 08:16 Nephro-Alonzo PO 1 tab 0800 ELINA Administration - Patient Studies Lab Studies: Lab Studies 05/19/17 05/19/17 05/19/17 Range/Units 07:38 07:20 06:50 WBC (4.8-10.8) K/uL RBC (3.80-5.20) Mil/uL Hgb (11.0-16.0) g/dL Hct (34.0-47.0) % MCV (81.0-99.0) fL MCH (27.0-31.0) pg MCHC (33.0-37.0) g/dL RDW (11.5-14.5) % Plt Count (130-400) K/uL MPV (7.2-11.7) fL Neut % (Auto) (50.0-75.0) % Lymph % (Auto) (20.0-40.0) % Traverse % (Auto) (0.0-10.0) % Eos % (Auto) (0.0-4.0) % Baso % (Auto) (0.0-2.0) % Neut # (1.8-7.0) K/uL Lymph # (1.0-4.3) K/uL Traverse # (0.0-0.8) K/uL Eos # (0.0-0.7) K/uL Baso # (0.0-0.2) K/uL Puncture Site pCO2 (35-45) mm/Hg pO2 (80-100) mm/Hg HCO3 (21-28) mmol/L ABG pH (7.35-7.45) ABG Total CO2 (22-28) mmol/L ABG O2 Saturation (95-98) % ABG Base Excess (-2.0-3.0) mmol/L ABG Hemoglobin (11.7-17.4) g/dL ABG Carboxyhemoglobin (0.5-1.5) % POC ABG HHb (Measured) (0.0-5.0) % ABG Methemoglobin (0.0-3.0) % Joey Test A-a O2 Difference mm/Hg Respiratory Index Hgb O2 Saturation (95.0-98.0) % Vent Mode Mechanical Rate FiO2 % Tidal Volume PEEP Crit Value Called To Crit Value Called By Crit Value Read Back Blood Gas Notified Time Sodium (132-148) mmol/L Potassium (3.6-5.2) mmol/L Chloride (98-107) mmol/L Carbon Dioxide (22-30) mmol/L Anion Gap (10-20) BUN (7-17) mg/dL Creatinine (0.7-1.2) mg/dL Est GFR ( Amer) Est GFR (Non-Af Amer) POC Glucose (mg/dL) 169 H (65-110) mg/dL Random Glucose (65-105) mg/dL Lactic Acid 10.8 H* (0.7-2.1) mmol/L Calcium (8.6-10.4) mg/dl Total Bilirubin (0.2-1.3) mg/dL AST (14-36) U/L ALT (9-52) U/L Alkaline Phosphatase (38-126) U/L Ammonia (9-33) umol/L Total Protein (6.3-8.3) g/dL Albumin (3.5-5.0) g/dL Globulin (2.2-3.9) gm/dL Albumin/Globulin Ratio (1.0-2.1) Blood Type B POSITIVE Antibody Screen Negative 05/19/17 05/19/17 05/19/17 Range/Units 06:50 06:24 06:24 WBC 30.5 H (4.8-10.8) K/uL RBC 2.06 L (3.80-5.20) Mil/uL Hgb 6.3 L* D (11.0-16.0) g/dL Hct 20.6 L (34.0-47.0) % MCV 100.3 H D (81.0-99.0) fL MCH 30.6 (27.0-31.0) pg MCHC 30.5 L (33.0-37.0) g/dL RDW 19.9 H (11.5-14.5) % Plt Count 202 D (130-400) K/uL MPV 10.9 (7.2-11.7) fL Neut % (Auto) 86.7 H (50.0-75.0) % Lymph % (Auto) 10.3 L (20.0-40.0) % Traverse % (Auto) 0.8 (0.0-10.0) % Eos % (Auto) 1.1 (0.0-4.0) % Baso % (Auto) 1.1 (0.0-2.0) % Neut # 26.4 H (1.8-7.0) K/uL Lymph # 3.2 (1.0-4.3) K/uL Traverse # 0.3 (0.0-0.8) K/uL Eos # 0.3 (0.0-0.7) K/uL Baso # 0.3 H (0.0-0.2) K/uL Puncture Site pCO2 (35-45) mm/Hg pO2 (80-100) mm/Hg HCO3 (21-28) mmol/L ABG pH (7.35-7.45) ABG Total CO2 (22-28) mmol/L ABG O2 Saturation (95-98) % ABG Base Excess (-2.0-3.0) mmol/L ABG Hemoglobin (11.7-17.4) g/dL ABG Carboxyhemoglobin (0.5-1.5) % POC ABG HHb (Measured) (0.0-5.0) % ABG Methemoglobin (0.0-3.0) % Joey Test A-a O2 Difference mm/Hg Respiratory Index Hgb O2 Saturation (95.0-98.0) % Vent Mode Mechanical Rate FiO2 % Tidal Volume PEEP Crit Value Called To Crit Value Called By Crit Value Read Back Blood Gas Notified Time Sodium 134 (132-148) mmol/L Potassium 5.6 H (3.6-5.2) mmol/L Chloride 102 (98-107) mmol/L Carbon Dioxide 6 L* D (22-30) mmol/L Anion Gap 32 H (10-20) BUN 54 H (7-17) mg/dL Creatinine 2.7 H (0.7-1.2) mg/dL Est GFR ( Amer) 21 Est GFR (Non-Af Amer) 17 POC Glucose (mg/dL) (65-110) mg/dL Random Glucose 225 H (65-105) mg/dL Lactic Acid (0.7-2.1) mmol/L Calcium 6.1 L (8.6-10.4) mg/dl Total Bilirubin 1.1 (0.2-1.3) mg/dL AST > 750 H D (14-36) U/L ALT 339 H D (9-52) U/L Alkaline Phosphatase 324 H (38-126) U/L Ammonia 101 H D (9-33) umol/L Total Protein 3.4 L (6.3-8.3) g/dL Albumin 1.8 L (3.5-5.0) g/dL Globulin 1.7 L (2.2-3.9) gm/dL Albumin/Globulin Ratio 1.1 (1.0-2.1) Blood Type Antibody Screen 05/19/17 05/19/17 05/19/17 Range/Units 05:02 04:49 00:40 WBC (4.8-10.8) K/uL RBC (3.80-5.20) Mil/uL Hgb (11.0-16.0) g/dL Hct (34.0-47.0) % MCV (81.0-99.0) fL MCH (27.0-31.0) pg MCHC (33.0-37.0) g/dL RDW (11.5-14.5) % Plt Count (130-400) K/uL MPV (7.2-11.7) fL Neut % (Auto) (50.0-75.0) % Lymph % (Auto) (20.0-40.0) % Traverse % (Auto) (0.0-10.0) % Eos % (Auto) (0.0-4.0) % Baso % (Auto) (0.0-2.0) % Neut # (1.8-7.0) K/uL Lymph # (1.0-4.3) K/uL Traverse # (0.0-0.8) K/uL Eos # (0.0-0.7) K/uL Baso # (0.0-0.2) K/uL Puncture Site Rr pCO2 16 L* (35-45) mm/Hg pO2 182 H (80-100) mm/Hg HCO3 5.3 L* (21-28) mmol/L ABG pH 7.00 L* (7.35-7.45) ABG Total CO2 4.4 L (22-28) mmol/L ABG O2 Saturation 100.4 H (95-98) % ABG Base Excess -25.2 L (-2.0-3.0) mmol/L ABG Hemoglobin 6.4 L (11.7-17.4) g/dL ABG Carboxyhemoglobin 2.3 H (0.5-1.5) % POC ABG HHb (Measured) -0.4 L (0.0-5.0) % ABG Methemoglobin 1.3 (0.0-3.0) % Joey Test Pos A-a O2 Difference 83.0 mm/Hg Respiratory Index 0.5 Hgb O2 Saturation 96.8 (95.0-98.0) % Vent Mode Prvc Mechanical Rate 15 FiO2 40.0 % Tidal Volume 450 PEEP 5 Crit Value Called To Sarmad rn Crit Value Called By Gely chemist biological Crit Value Read Back Y Blood Gas Notified Time 606 Sodium (132-148) mmol/L Potassium (3.6-5.2) mmol/L Chloride (98-107) mmol/L Carbon Dioxide (22-30) mmol/L Anion Gap (10-20) BUN (7-17) mg/dL Creatinine (0.7-1.2) mg/dL Est GFR ( Amer) Est GFR (Non-Af Amer) POC Glucose (mg/dL) 215 H 167 H (65-110) mg/dL Random Glucose (65-105) mg/dL Lactic Acid (0.7-2.1) mmol/L Calcium (8.6-10.4) mg/dl Total Bilirubin (0.2-1.3) mg/dL AST (14-36) U/L ALT (9-52) U/L Alkaline Phosphatase (38-126) U/L Ammonia (9-33) umol/L Total Protein (6.3-8.3) g/dL Albumin (3.5-5.0) g/dL Globulin (2.2-3.9) gm/dL Albumin/Globulin Ratio (1.0-2.1) Blood Type Antibody Screen 05/18/17 05/18/17 05/18/17 Range/Units 19:29 15:38 11:49 WBC (4.8-10.8) K/uL RBC (3.80-5.20) Mil/uL Hgb (11.0-16.0) g/dL Hct (34.0-47.0) % MCV (81.0-99.0) fL MCH (27.0-31.0) pg MCHC (33.0-37.0) g/dL RDW (11.5-14.5) % Plt Count (130-400) K/uL MPV (7.2-11.7) fL Neut % (Auto) (50.0-75.0) % Lymph % (Auto) (20.0-40.0) % Traverse % (Auto) (0.0-10.0) % Eos % (Auto) (0.0-4.0) % Baso % (Auto) (0.0-2.0) % Neut # (1.8-7.0) K/uL Lymph # (1.0-4.3) K/uL Traverse # (0.0-0.8) K/uL Eos # (0.0-0.7) K/uL Baso # (0.0-0.2) K/uL Puncture Site pCO2 (35-45) mm/Hg pO2 (80-100) mm/Hg HCO3 (21-28) mmol/L ABG pH (7.35-7.45) ABG Total CO2 (22-28) mmol/L ABG O2 Saturation (95-98) % ABG Base Excess (-2.0-3.0) mmol/L ABG Hemoglobin (11.7-17.4) g/dL ABG Carboxyhemoglobin (0.5-1.5) % POC ABG HHb (Measured) (0.0-5.0) % ABG Methemoglobin (0.0-3.0) % Joey Test A-a O2 Difference mm/Hg Respiratory Index Hgb O2 Saturation (95.0-98.0) % Vent Mode Mechanical Rate FiO2 % Tidal Volume PEEP Crit Value Called To Crit Value Called By Crit Value Read Back Blood Gas Notified Time Sodium (132-148) mmol/L Potassium (3.6-5.2) mmol/L Chloride (98-107) mmol/L Carbon Dioxide (22-30) mmol/L Anion Gap (10-20) BUN (7-17) mg/dL Creatinine (0.7-1.2) mg/dL Est GFR ( Amer) Est GFR (Non-Af Amer) POC Glucose (mg/dL) 178 H 145 H 152 H (65-110) mg/dL Random Glucose (65-105) mg/dL Lactic Acid (0.7-2.1) mmol/L Calcium (8.6-10.4) mg/dl Total Bilirubin (0.2-1.3) mg/dL AST (14-36) U/L ALT (9-52) U/L Alkaline Phosphatase (38-126) U/L Ammonia (9-33) umol/L Total Protein (6.3-8.3) g/dL Albumin (3.5-5.0) g/dL Globulin (2.2-3.9) gm/dL Albumin/Globulin Ratio (1.0-2.1) Blood Type Antibody Screen Laboratory Results - last 24 hr 05/18/17 05/18/17 05/18/17 11:49 15:38 19:29 WBC RBC Hgb Hct MCV MCH MCHC RDW Plt Count MPV Neut % (Auto) Lymph % (Auto) Traverse % (Auto) Eos % (Auto) Baso % (Auto) Neut # Lymph # Traverse # Eos # Baso # Puncture Site pCO2 pO2 HCO3 ABG pH ABG Total CO2 ABG O2 Saturation ABG Base Excess ABG Hemoglobin ABG Carboxyhemoglobin POC ABG HHb (Measured) ABG Methemoglobin Joey Test A-a O2 Difference Respiratory Index Hgb O2 Saturation Vent Mode Mechanical Rate FiO2 Tidal Volume PEEP Crit Value Called To Crit Value Called By Crit Value Read Back Blood Gas Notified Time Sodium Potassium Chloride Carbon Dioxide Anion Gap BUN Creatinine Est GFR ( Amer) Est GFR (Non-Af Amer) POC Glucose (mg/dL) 152 H 145 H 178 H Random Glucose Lactic Acid Calcium Total Bilirubin AST ALT Alkaline Phosphatase Ammonia Total Protein Albumin Globulin Albumin/Globulin Ratio Blood Type Antibody Screen 05/19/17 05/19/17 05/19/17 00:40 04:49 05:02 WBC RBC Hgb Hct MCV MCH MCHC RDW Plt Count MPV Neut % (Auto) Lymph % (Auto) Traverse % (Auto) Eos % (Auto) Baso % (Auto) Neut # Lymph # Traverse # Eos # Baso # Puncture Site Rr pCO2 16 L* pO2 182 H HCO3 5.3 L* ABG pH 7.00 L* ABG Total CO2 4.4 L ABG O2 Saturation 100.4 H ABG Base Excess -25.2 L ABG Hemoglobin 6.4 L ABG Carboxyhemoglobin 2.3 H POC ABG HHb (Measured) -0.4 L ABG Methemoglobin 1.3 Joey Test Pos A-a O2 Difference 83.0 Respiratory Index 0.5 Hgb O2 Saturation 96.8 Vent Mode Prvc Mechanical Rate 15 FiO2 40.0 Tidal Volume 450 PEEP 5 Crit Value Called To Sarmad rn Crit Value Called By Gely chemist biological Crit Value Read Back Y Blood Gas Notified Time 606 Sodium Potassium Chloride Carbon Dioxide Anion Gap BUN Creatinine Est GFR ( Amer) Est GFR (Non-Af Amer) POC Glucose (mg/dL) 167 H 215 H Random Glucose Lactic Acid Calcium Total Bilirubin AST ALT Alkaline Phosphatase Ammonia Total Protein Albumin Globulin Albumin/Globulin Ratio Blood Type Antibody Screen 05/19/17 05/19/17 05/19/17 06:24 06:24 06:50 WBC 30.5 H RBC 2.06 L Hgb 6.3 L* D Hct 20.6 L MCV 100.3 H D MCH 30.6 MCHC 30.5 L RDW 19.9 H Plt Count 202 D MPV 10.9 Neut % (Auto) 86.7 H Lymph % (Auto) 10.3 L Traverse % (Auto) 0.8 Eos % (Auto) 1.1 Baso % (Auto) 1.1 Neut # 26.4 H Lymph # 3.2 Traverse # 0.3 Eos # 0.3 Baso # 0.3 H Puncture Site pCO2 pO2 HCO3 ABG pH ABG Total CO2 ABG O2 Saturation ABG Base Excess ABG Hemoglobin ABG Carboxyhemoglobin POC ABG HHb (Measured) ABG Methemoglobin Joey Test A-a O2 Difference Respiratory Index Hgb O2 Saturation Vent Mode Mechanical Rate FiO2 Tidal Volume PEEP Crit Value Called To Crit Value Called By Crit Value Read Back Blood Gas Notified Time Sodium 134 Potassium 5.6 H Chloride 102 Carbon Dioxide 6 L* D Anion Gap 32 H BUN 54 H Creatinine 2.7 H Est GFR ( Amer) 21 Est GFR (Non-Af Amer) 17 POC Glucose (mg/dL) Random Glucose 225 H Lactic Acid Calcium 6.1 L Total Bilirubin 1.1 AST > 750 H D ALT 339 H D Alkaline Phosphatase 324 H Ammonia 101 H D Total Protein 3.4 L Albumin 1.8 L Globulin 1.7 L Albumin/Globulin Ratio 1.1 Blood Type Antibody Screen 05/19/17 05/19/17 05/19/17 06:50 07:20 07:38 WBC RBC Hgb Hct MCV MCH MCHC RDW Plt Count MPV Neut % (Auto) Lymph % (Auto) Traverse % (Auto) Eos % (Auto) Baso % (Auto) Neut # Lymph # Traverse # Eos # Baso # Puncture Site pCO2 pO2 HCO3 ABG pH ABG Total CO2 ABG O2 Saturation ABG Base Excess ABG Hemoglobin ABG Carboxyhemoglobin POC ABG HHb (Measured) ABG Methemoglobin Joey Test A-a O2 Difference Respiratory Index Hgb O2 Saturation Vent Mode Mechanical Rate FiO2 Tidal Volume PEEP Crit Value Called To Crit Value Called By Crit Value Read Back Blood Gas Notified Time Sodium Potassium Chloride Carbon Dioxide Anion Gap BUN Creatinine Est GFR ( Amer) Est GFR (Non-Af Amer) POC Glucose (mg/dL) 169 H Random Glucose Lactic Acid 10.8 H* Calcium Total Bilirubin AST ALT Alkaline Phosphatase Ammonia Total Protein Albumin Globulin Albumin/Globulin Ratio Blood Type B POSITIVE Antibody Screen Negative Fingerstick Blood Sugar Results: 215 Review of Systems - Review of Systems Systems not reviewed;Unavailable: Intubated Critical Care Progress Note - Nutrition Nutrition: Nutrition Category Date Time Status NPO Diet [DIET] Diets 05/19/17 Breakfast Active Assessment/Plan - Assessment and Plan (Free Text) Assessment: 71F with a history of dialysis, renal failure and congestive heart failure, diabetes, hypertension, peripheral vascular disease, history of left knee below- knee limitation who was brought to the ICU for sepsis. Patient with respiratory distress during dialysis on 05/13 and intubated. Plan: Neuro: Propofol drip Dialudid 0.5 mg IVP Q6H HEENT: brimonidine 0.2% 1 ml OU TID latanoprost 0.02 ml OU timolol 1 drop OU BID Respiratory: 05/13 - Intubated (RR 15, TV 450, PEEP 5, FiO2 60) - titrate FiO2 to maintain O2 > 92%) BiPAP trial with plan to extubate, as tolerated CXR 05/15: Stable position of endotracheal tube and right PICC line. No change in left lower lobe consolidation and moderate left pleural effusion. Chest CT angio: Filling defects are noted at both upper lobes pulmonary arteries suggestive of pulmonary embolus. Large bilateral effusion. Mild cardiomegaly. [id number] periocardial effusion. [id number] anasarca. Lower lobe atelectasis due to pleural effusion. HEM: H&H: 6.3/20.6 * acute GI bleed over weekend per nursing * will transfuse 1 unit during dialysis today PLT: 202 Eliquis 5mg PO daily Procrit Nephro: Balance +932.[address] Ambrose consulted, help appreciated Pt undergoes hemodialysis Tues/Th/Sat Ergocalcierol 1 capsule PO Q7D Procrit Fluid, Electrolytes, Diet: Netrophos BID Tube feeds Thiamine Vitamin B complex 05/15: Potassium 2.4 - Potassium Phosphate 15 mmole 255 mls @ 42.5 mls/hr Repeat CMP, magnesium and phosphorous after dialysis Endo: DM ISS Lantus 10 units SC AMHS Accucheck Glucose Hypoglycemic protocol Cardio: hx of diastolic CHF MAP > 65, EF 61% 05/19: ST elevation noted on monitor, EKG and JUAN A ordered Midodrine 10 mg PRN Crestor 10 mg PO HS Timolol Maleate 1 drop OU BID ELINA Levophed ID: Sepsis WBC 30.5 Lactate * 5.3 on 05/11 and 05/13 * 3.0 on 05/15 * 10.8 05/19 procal > 200 (05/12) Tmax overnight 101 wound culture showing candidia tissue culture negative blood culture negative [id number] Infecious Disease, Dr. Wellington consulted, help appreciated: recommends removing PICC line as source of infection Surgery, Dr. Broussard consulted, help appreciated: Examined AV fistula site due to poor flow. Recommendation is to insert permactah and Right IJ triple lumen Fluconazole 200 mg IVPB q24h Nystatin 1 g TOP Q8 Linezolid 600 mg Q12 Cefepime 1 g QD Wound vac for left AKA wound - not likely the source of elevated WBC count. Plans to change wound vac today GI Acute GI bleed over the weekend AST/ALT: >750, 339 (treding down) Prophylactic Care GI: Protonix 40 mg PO daily PEG tube feedings SCD to right lower extremity <Stalin John - Last Filed: 05/19/17 17:03> CCU Objective - Vital Signs / Intake & Output Vital Signs (Last 4 hours): Vital Signs Temp Pulse Resp BP Pulse Ox 05/19/17 16:36 92 H 26 H 144/24 L 100 05/19/17 15:40 97.6 F 88 25 H 142/18 L 05/19/17 15:36 92 H 26 H 142/18 L 100 05/19/17 15:21 97.6 F 89 25 H 147/18 L 05/19/17 14:51 97.5 F L 92 H 23 163/14 H 05/19/17 14:38 95 H 27 H 126/24 L 100 05/19/17 14:21 97.5 F L 95 H 26 H 134/14 L 05/19/17 14:06 96 H 27 H 125/13 L 100 05/19/17 13:51 97.4 F L 95 H 25 H 130/23 L 05/19/17 13:36 95 H 25 H 134/23 L 100 05/19/17 13:21 97.4 F L 94 H 25 H 134/23 L 05/19/17 13:06 97.4 F L 99 H 24 140/19 L Intake and Output (Last 8hrs): Intake & Output 05/19/17 05/19/17 05/19/17 06:59 14:59 22:59 Intake Total 83.8 1664.6 407.6 Output Total 25 5 Balance 58.8 1659.6 407.6 Weight 130 lb 1.164 oz Intake: IV 48 152 Intake, IV Amount 35.8 1062.6 207.6 Right IJ Side Port 35.8 202.6 37.6 Right IJ Side Port #2 400 Right PICC 100 50 Rt IJ Side port 'B" 360 120 Blood Product 450 200 Red Blood Cells Cpd As1 325 Lr Unit [id number] Red Blood Cells Cpd As1 125 200 Lr Unit [id number] Output: Drainage 5 Left Knee 5 Urine 0 Urine, Voided 0 Stool 25 - Medications Active Medications: Active Medications Generic Name Dose Route Start Last Admin Trade Name Freq PRN Reason Stop Dose Admin Acetaminophen 650 mg 05/13/17 09:40 05/17/17 15:42 Tylenol 650mg/20.3ml Solution Ud PO 650 mg Q6 PRN Administration Fever >100.4 F Albumin Human 12.5 gm 05/13/17 12:00 05/18/17 12:00 Albumin Human 5% (12.5 Gm/250 Ml) IV 12.5 gm MWF PRN Administration hypotension Albumin Human 12.5 gm 05/19/17 08:15 05/19/17 13:02 Albumin Human 25% (12.5 Gm/50 Ml) IV 05/20/17 06:01 12.5 gm Q8 ELINA Administration Apixaban 5 mg 05/13/17 10:00 05/15/17 19:20 Eliquis PO 5 mg BID ELINA Administration Brimonidine Tartrate 1 ml 04/12/17 10:00 05/19/17 13:00 Alphagan 0.2% Opht OU 1 applic TID ELINA Administration Collagenase 0 gm 05/12/17 11:15 05/19/17 12:06 Santyl TOP Not Given DAILY ELINA Epoetin Maxwell 10,000 unit 04/27/17 12:00 05/18/17 11:07 Procrit IV 10,000 unit MWF ELINA Administration Ergocalciferol 1 cap 04/11/17 22:30 05/16/17 22:02 Drisdol 50,000 Intl Units Cap PO 1 cap Q7D ELINA Administration Hydrocortisone Sodium Succinate 50 mg 05/17/17 12:45 05/19/17 12:14 Solu-Cortef IV 50 mg Q8H ELINA Administration Linezolid 600 mg in 300 mls @ 200 mls/hr 05/12/17 22:00 05/19/17 09:01 Zyvox 600mg/300ml D5w IVPB 200 mls/hr Q12 ELINA Administration Propofol 1,000 mg in 100 mls @ 1.762 mls/hr 05/13/17 15:41 05/13/17 20:00 Diprivan IV 10 mcg/kg/min .Q24H PRN 3.524 mls/hr TITRATE PER MD ORDER Titration Protocol 5 MCG/KG/MIN Micafungin Sodium 100 mg/ 100 mls @ 100 mls/hr 05/14/17 20:00 05/18/17 19:50 Sodium Chloride IV 100 mls/hr Q24H ELINA Administration Norepinephrine Bitartrate 8 mg 250 mls @ 7.5 mls/hr 05/16/17 07:13 05/19/17 12:56 / Sodium Chloride IV 12 mcg/min .Q24H PRN 22.5 mls/hr TITRATE PER MD ORDER Administration Protocol 4 MCG/MIN Gentamicin Sulfate/Sodium Chloride 80 mg in 100 mls @ 100 mls/hr 05/17/17 13: 00 05/19/17 12:19 Gentamicin Iv 80 Mg Premix IVPB 100 mls/hr Q24H ELINA Administration Dopamine HCl/Dextrose 400 mg in 250 mls @ 4.5 mls/hr 05/18/17 11:00 05/18/17 12:14 Dopamine 400mg/250ml D5w IV 0 mcg/kg/min .Q24H PRN 0 mls/hr TITRATE PER MD ORDER Titration Protocol 2 MCG/KG/MIN Sodium Bicarbonate 150 meq/ 1,000 mls @ 60 mls/hr 05/19/17 09:15 05/19/17 09: 47 Sodium Chloride IV 60 mls/hr .[id number] ELINA Administration Insulin Glargine 10 unit 05/14/17 22:00 05/19/17 09:04 Lantus SC Not Given AMHS ELINA Insulin Human Regular 0 unit 05/14/17 21:05 05/19/17 16:11 Novolin R SC Not Given Q4 ELINA Protocol Latanoprost 0.02 ml 04/12/17 22:00 05/18/17 21:50 Xalatan Opht OU 0.02 ml HS ELINA Administration Midodrine 10 mg 04/27/17 11:04 05/09/17 11:02 Proamatine PO 10 mg ONCE PRN Administration Diastolic blood pressure Nystatin 1 gm 05/11/17 15:51 05/19/17 16:45 Nystop Topical Powder TOP 1 applic Q8H ELINA Administration Pantoprazole Sodium 40 mg 05/17/17 10:00 05/19/17 09:07 Protonix Inj IVP 40 mg DAILY ELINA Administration Potassium Phos/Sodium Phos 1 pkt 12/20/17 09:00 05/19/17 08:51 Neutra-Phos PO 1 pkt BIDPC ELINA Administration Rosuvastatin Calcium 10 mg 04/12/17 22:00 05/18/17 21:55 Crestor PO Not Given HS ELINA Thiamine HCl 100 mg 04/11/17 22:30 05/19/17 13:53 Vitamin B1 Inj IV 100 mg Q8H ELINA Administration Timolol Maleate 1 drop 04/12/17 10:00 05/19/17 09:03 Timoptic 0.5% Ophth Soln OU 1 drop BID ELINA Administration Vitamin B Complex/Vit C/Folic Acid 1 tab 04/12/17 08:00 05/19/17 08:16 Nephro-Alonzo PO 1 tab 0800 ELINA Administration - Patient Studies Lab Studies: Lab Studies 05/19/17 05/19/17 05/19/17 Range/Units 16:01 15:55 11:53 WBC (4.8-10.8) K/uL RBC (3.80-5.20) Mil/uL Hgb (11.0-16.0) g/dL Hct (34.0-47.0) % MCV (81.0-99.0) fL MCH (27.0-31.0) pg MCHC (33.0-37.0) g/dL RDW (11.5-14.5) % Plt Count (130-400) K/uL MPV (7.2-11.7) fL Neut % (Auto) (50.0-75.0) % Lymph % (Auto) (20.0-40.0) % Traverse % (Auto) (0.0-10.0) % Eos % (Auto) (0.0-4.0) % Baso % (Auto) (0.0-2.0) % Neut # (1.8-7.0) K/uL Lymph # (1.0-4.3) K/uL Traverse # (0.0-0.8) K/uL Eos # (0.0-0.7) K/uL Baso # (0.0-0.2) K/uL Smear Path Review Puncture Site pCO2 (35-45) mm/Hg pO2 (80-100) mm/Hg HCO3 (21-28) mmol/L ABG pH (7.35-7.45) ABG Total CO2 (22-28) mmol/L ABG O2 Saturation (95-98) % ABG Base Excess (-2.0-3.0) mmol/L ABG Hemoglobin (11.7-17.4) g/dL ABG Carboxyhemoglobin (0.5-1.5) % POC ABG HHb (Measured) (0.0-5.0) % ABG Methemoglobin (0.0-3.0) % Joey Test A-a O2 Difference mm/Hg Respiratory Index Hgb O2 Saturation (95.0-98.0) % Vent Mode Mechanical Rate FiO2 % Tidal Volume PEEP Crit Value Called To Crit Value Called By Crit Value Read Back Blood Gas Notified Time Sodium (132-148) mmol/L Potassium (3.6-5.2) mmol/L Chloride (98-107) mmol/L Carbon Dioxide (22-30) mmol/L Anion Gap (10-20) BUN (7-17) mg/dL Creatinine (0.7-1.2) mg/dL Est GFR ( Amer) Est GFR (Non-Af Amer) POC Glucose (mg/dL) 146 H 139 H (65-110) mg/dL Random Glucose (65-105) mg/dL Lactic Acid (0.7-2.1) mmol/L Calcium (8.6-10.4) mg/dl Total Bilirubin (0.2-1.3) mg/dL AST (14-36) U/L ALT (9-52) U/L Alkaline Phosphatase (38-126) U/L Ammonia (9-33) umol/L Total Creatine Kinase 101 (30-135) U/L CK-MB (Mass) 2.86 (0.0-3.38) ng/mL Troponin I 0.2190 H* (0.00-0.120) ng/mL Total Protein (6.3-8.3) g/dL Albumin (3.5-5.0) g/dL Globulin (2.2-3.9) gm/dL Albumin/Globulin Ratio (1.0-2.1) Blood Type Antibody Screen 05/19/17 05/19/17 05/19/17 Range/Units 07:38 07:20 06:50 WBC (4.8-10.8) K/uL RBC (3.80-5.20) Mil/uL Hgb (11.0-16.0) g/dL Hct (34.0-47.0) % MCV (81.0-99.0) fL MCH (27.0-31.0) pg MCHC (33.0-37.0) g/dL RDW (11.5-14.5) % Plt Count (130-400) K/uL MPV (7.2-11.7) fL Neut % (Auto) (50.0-75.0) % Lymph % (Auto) (20.0-40.0) % Traverse % (Auto) (0.0-10.0) % Eos % (Auto) (0.0-4.0) % Baso % (Auto) (0.0-2.0) % Neut # (1.8-7.0) K/uL Lymph # (1.0-4.3) K/uL Traverse # (0.0-0.8) K/uL Eos # (0.0-0.7) K/uL Baso # (0.0-0.2) K/uL Smear Path Review Puncture Site pCO2 (35-45) mm/Hg pO2 (80-100) mm/Hg HCO3 (21-28) mmol/L ABG pH (7.35-7.45) ABG Total CO2 (22-28) mmol/L ABG O2 Saturation (95-98) % ABG Base Excess (-2.0-3.0) mmol/L ABG Hemoglobin (11.7-17.4) g/dL ABG Carboxyhemoglobin (0.5-1.5) % POC ABG HHb (Measured) (0.0-5.0) % ABG Methemoglobin (0.0-3.0) % Joey Test A-a O2 Difference mm/Hg Respiratory Index Hgb O2 Saturation (95.0-98.0) % Vent Mode Mechanical Rate FiO2 % Tidal Volume PEEP Crit Value Called To Crit Value Called By Crit Value Read Back Blood Gas Notified Time Sodium (132-148) mmol/L Potassium (3.6-5.2) mmol/L Chloride (98-107) mmol/L Carbon Dioxide (22-30) mmol/L Anion Gap (10-20) BUN (7-17) mg/dL Creatinine (0.7-1.2) mg/dL Est GFR ( Amer) Est GFR (Non-Af Amer) POC Glucose (mg/dL) 169 H (65-110) mg/dL Random Glucose (65-105) mg/dL Lactic Acid 10.8 H* (0.7-2.1) mmol/L Calcium (8.6-10.4) mg/dl Total Bilirubin (0.2-1.3) mg/dL AST (14-36) U/L ALT (9-52) U/L Alkaline Phosphatase (38-126) U/L Ammonia (9-33) umol/L Total Creatine Kinase (30-135) U/L CK-MB (Mass) (0.0-3.38) ng/mL Troponin I (0.00-0.120) ng/mL Total Protein (6.3-8.3) g/dL Albumin (3.5-5.0) g/dL Globulin (2.2-3.9) gm/dL Albumin/Globulin Ratio (1.0-2.1) Blood Type B POSITIVE Antibody Screen Negative 05/19/17 05/19/17 05/19/17 Range/Units 06:50 06:24 06:24 WBC 30.5 H (4.8-10.8) K/uL RBC 2.06 L (3.80-5.20) Mil/uL Hgb 6.3 L* D (11.0-16.0) g/dL Hct 20.6 L (34.0-47.0) % MCV 100.3 H D (81.0-99.0) fL MCH 30.6 (27.0-31.0) pg MCHC 30.5 L (33.0-37.0) g/dL RDW 19.9 H (11.5-14.5) % Plt Count 202 D (130-400) K/uL MPV 10.9 (7.2-11.7) fL Neut % (Auto) 86.7 H (50.0-75.0) % Lymph % (Auto) 10.3 L (20.0-40.0) % Traverse % (Auto) 0.8 (0.0-10.0) % Eos % (Auto) 1.1 (0.0-4.0) % Baso % (Auto) 1.1 (0.0-2.0) % Neut # 26.4 H (1.8-7.0) K/uL Lymph # 3.2 (1.0-4.3) K/uL Traverse # 0.3 (0.0-0.8) K/uL Eos # 0.3 (0.0-0.7) K/uL Baso # 0.3 H (0.0-0.2) K/uL Smear Path Review Puncture Site pCO2 (35-45) mm/Hg pO2 (80-100) mm/Hg HCO3 (21-28) mmol/L ABG pH (7.35-7.45) ABG Total CO2 (22-28) mmol/L ABG O2 Saturation (95-98) % ABG Base Excess (-2.0-3.0) mmol/L ABG Hemoglobin (11.7-17.4) g/dL ABG Carboxyhemoglobin (0.5-1.5) % POC ABG HHb (Measured) (0.0-5.0) % ABG Methemoglobin (0.0-3.0) % Joey Test A-a O2 Difference mm/Hg Respiratory Index Hgb O2 Saturation (95.0-98.0) % Vent Mode Mechanical Rate FiO2 % Tidal Volume PEEP Crit Value Called To Crit Value Called By Crit Value Read Back Blood Gas Notified Time Sodium 134 (132-148) mmol/L Potassium 5.6 H (3.6-5.2) mmol/L Chloride 102 (98-107) mmol/L Carbon Dioxide 6 L* D (22-30) mmol/L Anion Gap 32 H (10-20) BUN 54 H (7-17) mg/dL Creatinine 2.7 H (0.7-1.2) mg/dL Est GFR ( Amer) 21 Est GFR (Non-Af Amer) 17 POC Glucose (mg/dL) (65-110) mg/dL Random Glucose 225 H (65-105) mg/dL Lactic Acid (0.7-2.1) mmol/L Calcium 6.1 L (8.6-10.4) mg/dl Total Bilirubin 1.1 (0.2-1.3) mg/dL AST > 750 H D (14-36) U/L ALT 339 H D (9-52) U/L Alkaline Phosphatase 324 H (38-126) U/L Ammonia 101 H D (9-33) umol/L Total Creatine Kinase (30-135) U/L CK-MB (Mass) (0.0-3.38) ng/mL Troponin I (0.00-0.120) ng/mL Total Protein 3.4 L (6.3-8.3) g/dL Albumin 1.8 L (3.5-5.0) g/dL Globulin 1.7 L (2.2-3.9) gm/dL Albumin/Globulin Ratio 1.1 (1.0-2.1) Blood Type Antibody Screen 05/19/17 05/19/17 05/19/17 Range/Units 05:02 04:49 00:40 WBC (4.8-10.8) K/uL RBC (3.80-5.20) Mil/uL Hgb (11.0-16.0) g/dL Hct (34.0-47.0) % MCV (81.0-99.0) fL MCH (27.0-31.0) pg MCHC (33.0-37.0) g/dL RDW (11.5-14.5) % Plt Count (130-400) K/uL MPV (7.2-11.7) fL Neut % (Auto) (50.0-75.0) % Lymph % (Auto) (20.0-40.0) % Traverse % (Auto) (0.0-10.0) % Eos % (Auto) (0.0-4.0) % Baso % (Auto) (0.0-2.0) % Neut # (1.8-7.0) K/uL Lymph # (1.0-4.3) K/uL Traverse # (0.0-0.8) K/uL Eos # (0.0-0.7) K/uL Baso # (0.0-0.2) K/uL Smear Path Review Puncture Site Rr pCO2 16 L* (35-45) mm/Hg pO2 182 H (80-100) mm/Hg HCO3 5.3 L* (21-28) mmol/L ABG pH 7.00 L* (7.35-7.45) ABG Total CO2 4.4 L (22-28) mmol/L ABG O2 Saturation 100.4 H (95-98) % ABG Base Excess -25.2 L (-2.0-3.0) mmol/L ABG Hemoglobin 6.4 L (11.7-17.4) g/dL ABG Carboxyhemoglobin 2.3 H (0.5-1.5) % POC ABG HHb (Measured) -0.4 L (0.0-5.0) % ABG Methemoglobin 1.3 (0.0-3.0) % Joey Test Pos A-a O2 Difference 83.0 mm/Hg Respiratory Index 0.5 Hgb O2 Saturation 96.8 (95.0-98.0) % Vent Mode Prvc Mechanical Rate 15 FiO2 40.0 % Tidal Volume 450 PEEP 5 Crit Value Called To Sarmad rn Crit Value Called By Gely chemist biological Crit Value Read Back Y Blood Gas Notified Time 606 Sodium (132-148) mmol/L Potassium (3.6-5.2) mmol/L Chloride (98-107) mmol/L Carbon Dioxide (22-30) mmol/L Anion Gap (10-20) BUN (7-17) mg/dL Creatinine (0.7-1.2) mg/dL Est GFR ( Amer) Est GFR (Non-Af Amer) POC Glucose (mg/dL) 215 H 167 H (65-110) mg/dL Random Glucose (65-105) mg/dL Lactic Acid (0.7-2.1) mmol/L Calcium (8.6-10.4) mg/dl Total Bilirubin (0.2-1.3) mg/dL AST (14-36) U/L ALT (9-52) U/L Alkaline Phosphatase (38-126) U/L Ammonia (9-33) umol/L Total Creatine Kinase (30-135) U/L CK-MB (Mass) (0.0-3.38) ng/mL Troponin I (0.00-0.120) ng/mL Total Protein (6.3-8.3) g/dL Albumin (3.5-5.0) g/dL Globulin (2.2-3.9) gm/dL Albumin/Globulin Ratio (1.0-2.1) Blood Type Antibody Screen 05/18/17 05/17/17 Range/Units 19:29 06:50 WBC (4.8-10.8) K/uL RBC (3.80-5.20) Mil/uL Hgb (11.0-16.0) g/dL Hct (34.0-47.0) % MCV (81.0-99.0) fL MCH (27.0-31.0) pg MCHC (33.0-37.0) g/dL RDW (11.5-14.5) % Plt Count (130-400) K/uL MPV (7.2-11.7) fL Neut % (Auto) (50.0-75.0) % Lymph % (Auto) (20.0-40.0) % Traverse % (Auto) (0.0-10.0) % Eos % (Auto) (0.0-4.0) % Baso % (Auto) (0.0-2.0) % Neut # (1.8-7.0) K/uL Lymph # (1.0-4.3) K/uL Traverse # (0.0-0.8) K/uL Eos # (0.0-0.7) K/uL Baso # (0.0-0.2) K/uL Smear Path Review Puncture Site pCO2 (35-45) mm/Hg pO2 (80-100) mm/Hg HCO3 (21-28) mmol/L ABG pH (7.35-7.45) ABG Total CO2 (22-28) mmol/L ABG O2 Saturation (95-98) % ABG Base Excess (-2.0-3.0) mmol/L ABG Hemoglobin (11.7-17.4) g/dL ABG Carboxyhemoglobin (0.5-1.5) % POC ABG HHb (Measured) (0.0-5.0) % ABG Methemoglobin (0.0-3.0) % Joey Test A-a O2 Difference mm/Hg Respiratory Index Hgb O2 Saturation (95.0-98.0) % Vent Mode Mechanical Rate FiO2 % Tidal Volume PEEP Crit Value Called To Crit Value Called By Crit Value Read Back Blood Gas Notified Time Sodium (132-148) mmol/L Potassium (3.6-5.2) mmol/L Chloride (98-107) mmol/L Carbon Dioxide (22-30) mmol/L Anion Gap (10-20) BUN (7-17) mg/dL Creatinine (0.7-1.2) mg/dL Est GFR ( Amer) Est GFR (Non-Af Amer) POC Glucose (mg/dL) 178 H (65-110) mg/dL Random Glucose (65-105) mg/dL Lactic Acid (0.7-2.1) mmol/L Calcium (8.6-10.4) mg/dl Total Bilirubin (0.2-1.3) mg/dL AST (14-36) U/L ALT (9-52) U/L Alkaline Phosphatase (38-126) U/L Ammonia (9-33) umol/L Total Creatine Kinase (30-135) U/L CK-MB (Mass) (0.0-3.38) ng/mL Troponin I (0.00-0.120) ng/mL Total Protein (6.3-8.3) g/dL Albumin (3.5-5.0) g/dL Globulin (2.2-3.9) gm/dL Albumin/Globulin Ratio (1.0-2.1) Blood Type Antibody Screen Laboratory Results - last 24 hr 05/17/17 05/18/17 05/19/17 06:50 19:29 00:40 WBC RBC Hgb Hct MCV MCH MCHC RDW Plt Count MPV Neut % (Auto) Lymph % (Auto) Traverse % (Auto) Eos % (Auto) Baso % (Auto) Neut # Lymph # Traverse # Eos # Baso # Smear Path Review Puncture Site pCO2 pO2 HCO3 ABG pH ABG Total CO2 ABG O2 Saturation ABG Base Excess ABG Hemoglobin ABG Carboxyhemoglobin POC ABG HHb (Measured) ABG Methemoglobin Joey Test A-a O2 Difference Respiratory Index Hgb O2 Saturation Vent Mode Mechanical Rate FiO2 Tidal Volume PEEP Crit Value Called To Crit Value Called By Crit Value Read Back Blood Gas Notified Time Sodium Potassium Chloride Carbon Dioxide Anion Gap BUN Creatinine Est GFR ( Amer) Est GFR (Non-Af Amer) POC Glucose (mg/dL) 178 H 167 H Random Glucose Lactic Acid Calcium Total Bilirubin AST ALT Alkaline Phosphatase Ammonia Total Creatine Kinase CK-MB (Mass) Troponin I Total Protein Albumin Globulin Albumin/Globulin Ratio Blood Type Antibody Screen 05/19/17 05/19/17 05/19/17 04:49 05:02 06:24 WBC 30.5 H RBC 2.06 L Hgb 6.3 L* D Hct 20.6 L MCV 100.3 H D MCH 30.6 MCHC 30.5 L RDW 19.9 H Plt Count 202 D MPV 10.9 Neut % (Auto) 86.7 H Lymph % (Auto) 10.3 L Traverse % (Auto) 0.8 Eos % (Auto) 1.1 Baso % (Auto) 1.1 Neut # 26.4 H Lymph # 3.2 Traverse # 0.3 Eos # 0.3 Baso # 0.3 H Smear Path Review Puncture Site Rr pCO2 16 L* pO2 182 H HCO3 5.3 L* ABG pH 7.00 L* ABG Total CO2 4.4 L ABG O2 Saturation 100.4 H ABG Base Excess -25.2 L ABG Hemoglobin 6.4 L ABG Carboxyhemoglobin 2.3 H POC ABG HHb (Measured) -0.4 L ABG Methemoglobin 1.3 Joey Test Pos A-a O2 Difference 83.0 Respiratory Index 0.5 Hgb O2 Saturation 96.8 Vent Mode Prvc Mechanical Rate 15 FiO2 40.0 Tidal Volume 450 PEEP 5 Crit Value Called To Sarmad rn Crit Value Called By Gely chemist biological Crit Value Read Back Y Blood Gas Notified Time 606 Sodium Potassium Chloride Carbon Dioxide Anion Gap BUN Creatinine Est GFR ( Amer) Est GFR (Non-Af Amer) POC Glucose (mg/dL) 215 H Random Glucose Lactic Acid Calcium Total Bilirubin AST ALT Alkaline Phosphatase Ammonia Total Creatine Kinase CK-MB (Mass) Troponin I Total Protein Albumin Globulin Albumin/Globulin Ratio Blood Type Antibody Screen 05/19/17 05/19/17 05/19/17 06:24 06:50 06:50 WBC RBC Hgb Hct MCV MCH MCHC RDW Plt Count MPV Neut % (Auto) Lymph % (Auto) Traverse % (Auto) Eos % (Auto) Baso % (Auto) Neut # Lymph # Traverse # Eos # Baso # Smear Path Review Puncture Site pCO2 pO2 HCO3 ABG pH ABG Total CO2 ABG O2 Saturation ABG Base Excess ABG Hemoglobin ABG Carboxyhemoglobin POC ABG HHb (Measured) ABG Methemoglobin Joey Test A-a O2 Difference Respiratory Index Hgb O2 Saturation Vent Mode Mechanical Rate FiO2 Tidal Volume PEEP Crit Value Called To Crit Value Called By Crit Value Read Back Blood Gas Notified Time Sodium 134 Potassium 5.6 H Chloride 102 Carbon Dioxide 6 L* D Anion Gap 32 H BUN 54 H Creatinine 2.7 H Est GFR ( Amer) 21 Est GFR (Non-Af Amer) 17 POC Glucose (mg/dL) Random Glucose 225 H Lactic Acid 10.8 H* Calcium 6.1 L Total Bilirubin 1.1 AST > 750 H D ALT 339 H D Alkaline Phosphatase 324 H Ammonia 101 H D Total Creatine Kinase CK-MB (Mass) Troponin I Total Protein 3.4 L Albumin 1.8 L Globulin 1.7 L Albumin/Globulin Ratio 1.1 Blood Type Antibody Screen 05/19/17 05/19/17 05/19/17 07:20 07:38 11:53 WBC RBC Hgb Hct MCV MCH MCHC RDW Plt Count MPV Neut % (Auto) Lymph % (Auto) Traverse % (Auto) Eos % (Auto) Baso % (Auto) Neut # Lymph # Traverse # Eos # Baso # Smear Path Review Puncture Site pCO2 pO2 HCO3 ABG pH ABG Total CO2 ABG O2 Saturation ABG Base Excess ABG Hemoglobin ABG Carboxyhemoglobin POC ABG HHb (Measured) ABG Methemoglobin Joey Test A-a O2 Difference Respiratory Index Hgb O2 Saturation Vent Mode Mechanical Rate FiO2 Tidal Volume PEEP Crit Value Called To Crit Value Called By Crit Value Read Back Blood Gas Notified Time Sodium Potassium Chloride Carbon Dioxide Anion Gap BUN Creatinine Est GFR ( Amer) Est GFR (Non-Af Amer) POC Glucose (mg/dL) 169 H 139 H Random Glucose Lactic Acid Calcium Total Bilirubin AST ALT Alkaline Phosphatase Ammonia Total Creatine Kinase CK-MB (Mass) Troponin I Total Protein Albumin Globulin Albumin/Globulin Ratio Blood Type B POSITIVE Antibody Screen Negative 05/19/17 05/19/17 15:55 16:01 WBC RBC Hgb Hct MCV MCH MCHC RDW Plt Count MPV Neut % (Auto) Lymph % (Auto) Traverse % (Auto) Eos % (Auto) Baso % (Auto) Neut # Lymph # Traverse # Eos # Baso # Smear Path Review Puncture Site pCO2 pO2 HCO3 ABG pH ABG Total CO2 ABG O2 Saturation ABG Base Excess ABG Hemoglobin ABG Carboxyhemoglobin POC ABG HHb (Measured) ABG Methemoglobin Joey Test A-a O2 Difference Respiratory Index Hgb O2 Saturation Vent Mode Mechanical Rate FiO2 Tidal Volume PEEP Crit Value Called To Crit Value Called By Crit Value Read Back Blood Gas Notified Time Sodium Potassium Chloride Carbon Dioxide Anion Gap BUN Creatinine Est GFR ( Amer) Est GFR (Non-Af Amer) POC Glucose (mg/dL) 146 H Random Glucose Lactic Acid Calcium Total Bilirubin AST ALT Alkaline Phosphatase Ammonia Total Creatine Kinase 101 CK-MB (Mass) 2.86 Troponin I 0.2190 H* Total Protein Albumin Globulin Albumin/Globulin Ratio Blood Type Antibody Screen EKG/Cardiology Studies: Cardiology / EKG Studies 05/19/17 11:23 EKG [ELECTROCARDIOGRAM] Stat Comment: Mode Of Transportation: Reason For Exam: ST elevation on monitor Precautions: Aspiration Pressure Ulcer Fall Prevention Critical Care Progress Note - Nutrition Nutrition: Nutrition Category Date Time Status NPO Diet [DIET] Diets 05/19/17 Breakfast Active Assessment/Plan (1) Pleural effusion Current Visit: No Status: Acute Attending/Attestation - Attestation I have personally seen and examined this patient.: Yes I have fully participated in the care of the patient.: Yes I have reviewed all pertinent clinical information: Yes Notes (Text): 05/19/17 17:00 Patient seen and examined in the intensive care unit. Case discussed with house staff in the morning around pt remained intubated on ventilatory support on multiple antibiotics as per infectious disease Started on bicarbonate drip for severe metabolic acidosis Could not tolerate dialysis and was severely hypotensive On Levophed High-dose Patient being transfused packed RBCs Prognosis extremely poor
[2017-05-19] MEDS: Collagenase 250 Units/gm Ointment(30 gm) TOP SCH (12:06)
[2017-05-19] MEDS: Gentamicin 80 mg in 0.9% NS 80 MG/100 ML BAG IVPB SCH (12:19)
[2017-05-19] MEDS: Norepinephrine 8 MG in Sodium Chloride 0.9% 242 ML IV PRN (12:56)
[2017-05-19 16:30] LABS: TROPONIN I 0.219 ng/mL (0.00-0.120)
--- NOTE | 2017-05-19 17:47 | CP.PCM.PN ---
Subjective - Date & Time of Evaluation Date of Evaluation: 05/19/17 Time of Evaluation: 07:00 - Subjective Subjective: Patient seen and examined at bedside. No acute events overnight. Patient intubated/sedated. ROS unattainable. Objective - Vital Signs/Intake and Output Vital Signs (last 24 hours): Temp Pulse Resp BP Pulse Ox 97.7 F 92 H 24 137/28 L 100 05/19/17 16:00 05/19/17 17:02 05/19/17 17:02 05/19/17 17:03 05/19/17 17:02 Intake and Output: 05/19/17 05/19/17 06:59 18:59 Intake Total 502.5 2237.2 Output Total 25 5 Balance 477.5 2232.2 - Medications Medications: Current Medications Acetaminophen (Tylenol 650mg/20.3ml Solution Ud) 650 mg PO Q6 PRN PRN Reason: Fever >100.4 F Last Admin: 05/17/17 15:42 Dose: 650 mg Albumin Human (Albumin Human 5% (12.5 Gm/250 Ml)) 12.5 gm IV MWF PRN PRN Reason: hypotension Last Admin: 05/18/17 12:00 Dose: 12.5 gm Albumin Human (Albumin Human 25% (12.5 Gm/50 Ml)) 12.5 gm IV Q8 [facility] Stop: 05/20/17 06:01 Last Admin: 05/19/17 13:02 Dose: 12.5 gm Apixaban (Eliquis) 5 mg PO BID [facility] Last Admin: 05/15/17 19:20 Dose: 5 mg Brimonidine Tartrate (Alphagan 0.2% Opht) 1 ml OU TID [facility] Last Admin: 05/19/17 17:28 Dose: 1 applic Collagenase (Santyl) 0 gm TOP DAILY [facility] Last Admin: 05/19/17 12:06 Dose: Not Given Epoetin Maxwell (Procrit) 10,000 unit IV MWF [facility] Last Admin: 05/18/17 11:07 Dose: 10,000 unit Ergocalciferol (Drisdol 50,000 Intl Units Cap) 1 cap PO Q7D [facility] Last Admin: 05/16/17 22:02 Dose: 1 cap Hydrocortisone Sodium Succinate (Solu-Cortef) 50 mg IV Q8H [facility] Last Admin: 05/19/17 12:14 Dose: 50 mg Linezolid (Zyvox 600mg/300ml D5w) 600 mg in 300 mls @ 200 mls/hr IVPB Q12 [facility] Last Admin: 05/19/17 09:01 Dose: 200 mls/hr Propofol (Diprivan) 1,000 mg in 100 mls @ 1.762 mls/hr IV .Q24H PRN; Protocol; 5 MCG/KG/MIN PRN Reason: TITRATE PER MD ORDER Last Titration: 05/13/17 20:00 Dose: 10 mcg/kg/min, 3.524 mls/hr Micafungin Sodium 100 mg/ (Sodium Chloride) 100 mls @ 100 mls/hr IV Q24H [facility] Last Admin: 05/18/17 19:50 Dose: 100 mls/hr Norepinephrine Bitartrate 8 mg (/ Sodium Chloride) 250 mls @ 7.5 mls/hr IV .Q24H PRN; Protocol; 4 MCG/MIN PRN Reason: TITRATE PER MD ORDER Last Titration: 05/19/17 17:00 Dose: 8 mcg/min, 15 mls/hr Gentamicin Sulfate/Sodium Chloride (Gentamicin Iv 80 Mg Premix) 80 mg in 100 mls @ 100 mls/hr IVPB Q24H [facility] Last Admin: 05/19/17 12:19 Dose: 100 mls/hr Dopamine HCl/Dextrose (Dopamine 400mg/250ml D5w) 400 mg in 250 mls @ 4.5 mls/ hr IV .Q24H PRN; Protocol; 2 MCG/KG/MIN PRN Reason: TITRATE PER MD ORDER Last Titration: 05/18/17 12:14 Dose: 0 mcg/kg/min, 0 mls/hr Sodium Bicarbonate 150 meq/ (Sodium Chloride) 1,000 mls @ 60 mls/hr IV .[id number] [facility] Last Admin: 05/19/17 09:47 Dose: 60 mls/hr Insulin Glargine (Lantus) 10 unit SC AMHS [facility] Last Admin: 05/19/17 09:04 Dose: Not Given Insulin Human Regular (Novolin R) 0 unit SC Q4 ELINA PRN Reason: Protocol Last Admin: 05/19/17 16:11 Dose: Not Given Latanoprost (Xalatan Opht) 0.02 ml OU HS [facility] Last Admin: 05/18/17 21:50 Dose: 0.02 ml Midodrine (Proamatine) 10 mg PO ONCE PRN PRN Reason: Diastolic blood pressure Last Admin: 05/09/17 11:02 Dose: 10 mg Nystatin (Nystop Topical Powder) 1 gm TOP Q8H [facility] Last Admin: 05/19/17 16:45 Dose: 1 applic Pantoprazole Sodium (Protonix Inj) 40 mg IVP DAILY [facility] Last Admin: 05/19/17 09:07 Dose: 40 mg Potassium Phos/Sodium Phos (Neutra-Phos) 1 pkt PO BIDPC [facility] Last Admin: 05/19/17 17:30 Dose: 1 pkt Rosuvastatin Calcium (Crestor) 10 mg PO HS [facility] Last Admin: 05/18/17 21:55 Dose: Not Given Thiamine HCl (Vitamin B1 Inj) 100 mg IV Q8H [facility] Last Admin: 05/19/17 13:53 Dose: 100 mg Timolol Maleate (Timoptic 0.5% Oph Sol) 1 drop OU BID [facility] Last Admin: 05/19/17 17:29 Dose: 1 drop Vitamin B Complex/Vit C/Folic Acid (Nephro-Alonzo) 1 tab PO 0800 [facility] Last Admin: 05/19/17 08:16 Dose: 1 tab - Labs Labs: 05/19/17 06:24 05/19/17 06:24 PT 22.8 SECONDS (9.7-12.2) H D 05/18/17 09:15 INR 2.0 D 05/18/17 09:15 APTT 37 SECONDS (21-34) H D 05/18/17 09:15 - Constitutional Appears: Confused, Cachectic, Chronically Ill - Head Exam Head Exam: NORMOCEPHALIC - Eye Exam Eye Exam: absent: Scleral icterus - ENT Exam ENT Exam: Mucous Membranes Dry - Neck Exam Neck Exam: absent: Lymphadenopathy - Respiratory Exam Respiratory Exam: Prolonged Expiratory Phase, Rhonchi - Cardiovascular Exam Cardiovascular Exam: REGULAR RHYTHM - GI/Abdominal Exam GI & Abdominal Exam: Distended - Rectal Exam Rectal Exam: Deferred - Exam Exam: NORMAL INSPECTION Assessment and Plan (1) Elevated WBC count Status: Acute (2) S/P BKA (below knee amputation) Status: Acute (3) Sacral decubitus ulcer, stage III Status: Acute (4) Sepsis Status: Acute
[2017-05-19] MEDS: Micafungin 100 MG in Sodium Chloride 0.9% 100 ML IV SCH (20:17)
[2017-05-19 21:18] LABS: DRAW SITE VENOUS; VENOUS BLOOD GAS BASE EXCESS -21.6 mmol/L (0.0-2.0); VENOUS BLOOD GAS PCO2 19 mmHg (40-60); VENOUS BLOOD PH 7.11 (7.32-7.43)
[2017-05-19] MEDS ORDERED: Sodium Bicarbonate (8.4%) 50 Meq Syringe IVP ONE (21:26)
[2017-05-19] MEDS: Latanoprost 2.5 ml Opht Soln OU SCH (21:59)
[2017-05-20] MEDS: (Novolin R) Insulin Human Regular 100 units/ml vial SC SCH ×6 (00:52→20:00)
[2017-05-20] MEDS: Nystatin 100,000 Units/gm Topical Pow(15 gm) TOP SCH ×3 (00:52→15:22)
--- NOTE | 2017-05-20 01:18 | CP.PCM.PN ---
Subjective - Date & Time of Evaluation Date of Evaluation: 05/19/17 Time of Evaluation: 16:00 Objective - Vital Signs/Intake and Output Vital Signs (last 24 hours): Temp Pulse Resp BP Pulse Ox 98.8 F 80 21 110/30 L 100 05/20/17 00:00 05/20/17 00:02 05/20/17 00:02 05/20/17 00:02 05/20/17 00:02 Intake and Output: 05/19/17 05/20/17 18:59 06:59 Intake Total 2327.2 918.9 Output Total 5 Balance 2322.2 918.9 - Medications Medications: Current Medications Acetaminophen (Tylenol 650mg/20.3ml Solution Ud) 650 mg PO Q6 PRN PRN Reason: Fever >100.4 F Last Admin: 05/17/17 15:42 Dose: 650 mg Albumin Human (Albumin Human 5% (12.5 Gm/250 Ml)) 12.5 gm IV MWF PRN PRN Reason: hypotension Last Admin: 05/18/17 12:00 Dose: 12.5 gm Albumin Human (Albumin Human 25% (12.5 Gm/50 Ml)) 12.5 gm IV Q8 [facility] Stop: 05/20/17 06:01 Last Admin: 05/19/17 21:57 Dose: 12.5 gm Apixaban (Eliquis) 5 mg PO BID [facility] Last Admin: 05/15/17 19:20 Dose: 5 mg Brimonidine Tartrate (Alphagan 0.2% Opht) 1 ml OU TID [facility] Last Admin: 05/19/17 17:28 Dose: 1 applic Collagenase (Santyl) 0 gm TOP DAILY [facility] Last Admin: 05/19/17 12:06 Dose: Not Given Epoetin Maxwell (Procrit) 10,000 unit IV MWF [facility] Last Admin: 05/18/17 11:07 Dose: 10,000 unit Ergocalciferol (Drisdol 50,000 Intl Units Cap) 1 cap PO Q7D [facility] Last Admin: 05/16/17 22:02 Dose: 1 cap Hydrocortisone Sodium Succinate (Solu-Cortef) 50 mg IV Q8H [facility] Last Admin: 05/19/17 20:18 Dose: 50 mg Linezolid (Zyvox 600mg/300ml D5w) 600 mg in 300 mls @ 200 mls/hr IVPB Q12 [facility] Last Admin: 05/19/17 21:57 Dose: 200 mls/hr Propofol (Diprivan) 1,000 mg in 100 mls @ 1.762 mls/hr IV .Q24H PRN; Protocol; 5 MCG/KG/MIN PRN Reason: TITRATE PER MD ORDER Last Titration: 05/13/17 20:00 Dose: 10 mcg/kg/min, 3.524 mls/hr Micafungin Sodium 100 mg/ (Sodium Chloride) 100 mls @ 100 mls/hr IV Q24H [facility] Last Admin: 05/19/17 20:17 Dose: 100 mls/hr Norepinephrine Bitartrate 8 mg (/ Sodium Chloride) 250 mls @ 7.5 mls/hr IV .Q24H PRN; Protocol; 4 MCG/MIN PRN Reason: TITRATE PER MD ORDER Last Titration: 05/19/17 22:04 Dose: 0 mcg/min, 0 mls/hr Dopamine HCl/Dextrose (Dopamine 400mg/250ml D5w) 400 mg in 250 mls @ 4.5 mls/ hr IV .Q24H PRN; Protocol; 2 MCG/KG/MIN PRN Reason: TITRATE PER MD ORDER Last Titration: 05/18/17 12:14 Dose: 0 mcg/kg/min, 0 mls/hr Sodium Bicarbonate 150 meq/ (Sodium Chloride) 1,000 mls @ 60 mls/hr IV .[id number] [facility] Last Admin: 05/19/17 09:47 Dose: 60 mls/hr Gentamicin Sulfate 80 mg/ (Sodium Chloride) 102 mls @ 100 mls/hr IVPB MWF [facility] Insulin Glargine (Lantus) 10 unit SC [facility] Last Admin: 05/19/17 21:58 Dose: Not Given Insulin Human Regular (Novolin R) 0 unit SC Q4 [facility] PRN Reason: Protocol Last Admin: 05/20/17 00:52 Dose: 1 unit Latanoprost (Xalatan Opht) 0.02 ml OU HS [facility] Last Admin: 05/19/17 21:59 Dose: 0.02 ml Midodrine (Proamatine) 10 mg PO ONCE PRN PRN Reason: Diastolic blood pressure Last Admin: 05/09/17 11:02 Dose: 10 mg Nystatin (Nystop Topical Powder) 1 gm TOP Q8H [facility] Last Admin: 05/20/17 00:52 Dose: 1 applic Pantoprazole Sodium (Protonix Inj) 40 mg IVP DAILY [facility] Last Admin: 05/19/17 09:07 Dose: 40 mg Potassium Phos/Sodium Phos (Neutra-Phos) 1 pkt PO BIDPC [facility] Last Admin: 05/19/17 17:30 Dose: 1 pkt Rosuvastatin Calcium (Crestor) 10 mg PO HS [facility] Last Admin: 05/19/17 21:58 Dose: 10 mg Thiamine HCl (Vitamin B1 Inj) 100 mg IV Q8H [facility] Last Admin: 05/19/17 21:58 Dose: 100 mg Timolol Maleate (Timoptic 0.5% [facility]) 1 drop OU BID [facility] Last Admin: 05/19/17 17:29 Dose: 1 drop Vitamin B Complex/Vit C/Folic Acid (Nephro-Alonzo) 1 tab PO 0800 [facility] Last Admin: 05/19/17 08:16 Dose: 1 tab - Labs Labs: 05/19/17 06:24 05/19/17 06:24 PT 22.8 SECONDS (9.7-12.2) H D 05/18/17 09:15 INR 2.0 D 05/18/17 09:15 APTT 37 SECONDS (21-34) H D 05/18/17 09:15
[2017-05-20] MEDS: Sodium Bicarbonate 8.4% 150 MEQ in Sodium Chloride 0.45% 850 ML IV SCH (02:04)
[2017-05-20] MEDS: Albumin Human 25% (12.5 gm/50 ml) IV SCH (05:02)
[2017-05-20 06:11] LABS: ABG ALLEN TEST POS; ABG MECHANICAL RATE 15; ARTERIAL BLOOD GAS MODE PRVC; ATERIAL BLOOD GAS PEEP 5; DRAW SITE RT RADIAL
[2017-05-20 06:29] LABS: BASO # 0.2 K/uL (0.0-0.2); BASO % 0.8 % (0.0-2.0); EOS # 0.4 K/uL (0.0-0.7); EOS % 1.5 % (0.0-4.0); HEMATOCRIT 24.5 % (34.0-47.0); LYMPH # 2.6 K/uL (1.0-4.3); LYMPH % 11.1 % (20.0-40.0); MEAN CELL VOLUME 92.1 fL (81.0-99.0); MEAN CORPUSCULAR HEMOGLOBIN 30.1 pg (27.0-31.0); MEAN CORPUSCULAR HGB CONC 32.7 g/dL (33.0-37.0); MEAN PLATELET VOLUME 10.5 fL (7.2-11.7); MONO # 0.2 K/uL (0.0-0.8); MONO % 0.7 % (0.0-10.0); NRBC % 4.6 % (0.0-2.0); RED CELL DISTRIBUTION WIDTH 15.7 % (11.5-14.5); WHITE BLOOD COUNT 23.2 K/uL (4.8-10.8)
[2017-05-20 06:33] LABS: INR 1.6
[2017-05-20] MEDS: Thiamine 100 mg/ml Inj IV SCH ×3 (06:38→21:35)
[2017-05-20 07:08] LABS: ALB/GLOB RATIO 1.5 (1.0-2.1); BILIRUBIN,TOTAL 1.6 mg/dL (0.2-1.3); POTASSIUM 4.1 mmol/L (3.6-5.2); TOTAL PROTEIN 3.8 g/dL (6.3-8.3)
--- NOTE | 2017-05-20 08:17 | CP.CCUPN ---
<Poonam Morel - Last Filed: 05/20/17 10:31> CCU Subjective - Physician Review Subjective (Free Text): 05/20/17 08:14 Patient seen and examined at bedside. No acute events overnight. Patient intubated/sedated. ROS unattainable. Yesterday hemodialysis was discontinued due to drop in BP. Patient stabilzed after discontinuation. Will try again today. CCU Objective - Vital Signs / Intake & Output Vital Signs (Last 4 hours): Vital Signs Pulse Resp BP Pulse Ox 05/20/17 07:00 74 29 H 100 05/20/17 06:55 76 23 144/36 L 100 05/20/17 06:26 78 26 H 145/43 L 100 05/20/17 06:00 79 27 H 100 05/20/17 05:32 76 27 H 121/44 L 100 05/20/17 05:02 76 26 H 119/35 L 100 05/20/17 05:00 74 30 H 100 05/20/17 04:32 76 29 H 107/35 L 100 Intake and Output (Last 8hrs): Intake & Output 05/19/17 05/20/17 05/20/17 22:59 06:59 14:59 Intake Total 1461.5 530 Output Total 200 Balance 1461.5 330 Intake: IV 150 Intake, IV Amount 1081.5 530 Right IJ Side Port 101.5 Right PICC 500 50 Rt IJ Side port 'B" 480 480 Blood Product 200 Red Blood Cells Cpd As1 200 Lr Unit [id number] Other 30 Output: Stool 200 - Physical Exam Head: Positive for: Atraumatic Pupils: Positive for: PERRL Conjunctiva: Positive for: Normal Mouth: Positive for: Other (ET tube ) Respiratory/Chest: Positive for: Clear to Auscultation, Good Air Exchange, Other (intubated ). Negative for: Respiratory Distress, Accessory Muscle Use, Wheezes, Rales, Rhonchi Cardiovascular: Positive for: Regular Rate and Rhythm Abdomen: Positive for: Feeding Tubes. Negative for: Tenderness, Distention Upper Extremity: Positive for: Edema Lower Extremity: Positive for: Edema, Other (s/p left AKA, wound of surgical site with wound vac ) Neurological: Positive for: Other (Intubated and sedated ) Skin: Positive for: Warm, Dry - Medications Active Medications: Active Medications Generic Name Dose Route Start Last Admin Trade Name Freq PRN Reason Stop Dose Admin Acetaminophen 650 mg 05/13/17 09:40 05/17/17 15:42 Tylenol 650mg/20.3ml Solution Ud PO 650 mg Q6 PRN Administration Fever >100.4 F Albumin Human 12.5 gm 05/13/17 12:00 05/18/17 12:00 Albumin Human 5% (12.5 Gm/250 Ml) IV 12.5 gm MWF PRN Administration hypotension Apixaban 5 mg 05/13/17 10:00 05/15/17 19:20 Eliquis PO 5 mg BID ELINA Administration Brimonidine Tartrate 1 ml 04/12/17 10:00 05/19/17 17:28 Alphagan 0.2% Opht OU 1 applic TID ELINA Administration Collagenase 0 gm 05/12/17 11:15 05/19/17 12:06 Santyl TOP Not Given DAILY ELINA Epoetin Maxwell 10,000 unit 04/27/17 12:00 05/18/17 11:07 Procrit IV 10,000 unit [facility] ELINA Administration Ergocalciferol 1 cap 04/11/17 22:30 05/16/17 22:02 Drisdol 50,000 Intl Units Cap PO 1 cap Q7D ELINA Administration Hydrocortisone Sodium Succinate 50 mg 05/17/17 12:45 05/20/17 04:59 Solu-Cortef IV 50 mg Q8H ELINA Administration Linezolid 600 mg in 300 mls @ 200 mls/hr 05/12/17 22:00 05/19/17 21:57 Zyvox 600mg/300ml D5w IVPB 200 mls/hr Q12 ELINA Administration Propofol 1,000 mg in 100 mls @ 1.762 mls/hr 05/13/17 15:41 05/13/17 20:00 Diprivan IV 10 mcg/kg/min .Q24H PRN 3.524 mls/hr TITRATE PER MD ORDER Titration Protocol 5 MCG/KG/MIN Micafungin Sodium 100 mg/ 100 mls @ 100 mls/hr 05/14/17 20:00 05/19/17 20:17 Sodium Chloride IV 100 mls/hr Q24H ELINA Administration Norepinephrine Bitartrate 8 mg 250 mls @ 7.5 mls/hr 05/16/17 07:13 05/19/17 22:04 / Sodium Chloride IV 0 mcg/min .Q24H PRN 0 mls/hr TITRATE PER MD ORDER Titration Protocol 4 MCG/MIN Dopamine HCl/Dextrose 400 mg in 250 mls @ 4.5 mls/hr 05/18/17 11:00 05/18/17 12:14 Dopamine 400mg/250ml D5w IV 0 mcg/kg/min .Q24H PRN 0 mls/hr TITRATE PER MD ORDER Titration Protocol 2 MCG/KG/MIN Sodium Bicarbonate 150 meq/ 1,000 mls @ 60 mls/hr 05/19/17 09:15 05/20/17 02: 04 Sodium Chloride IV 60 mls/hr .[id number] ELINA Administration Gentamicin Sulfate 80 mg/ 102 mls @ 100 mls/hr 05/20/17 09:00 Sodium Chloride IVPB MWF ELINA Insulin Glargine 10 unit 05/14/17 22:00 05/19/17 21:58 Lantus SC Not Given [facility] ELINA Insulin Human Regular 0 unit 05/14/17 21:05 05/20/17 03:33 Novolin R SC Not Given Q4 ELINA Protocol Latanoprost 0.02 ml 04/12/17 22:00 05/19/17 21:59 Xalatan Opht OU 0.02 ml HS ELINA Administration Midodrine 10 mg 04/27/17 11:04 05/09/17 11:02 Proamatine PO 10 mg ONCE PRN Administration Diastolic blood pressure Nystatin 1 gm 05/11/17 15:51 05/20/17 07:33 Nystop Topical Powder TOP 1 applic Q8H ELINA Administration Pantoprazole Sodium 40 mg 05/17/17 10:00 05/19/17 09:07 Protonix Inj IVP 40 mg DAILY ELINA Administration Potassium Phos/Sodium Phos 1 pkt 05/13/17 09:00 05/19/17 17:30 Neutra-Phos PO 1 pkt BIDPC ELINA Administration Rosuvastatin Calcium 10 mg 04/12/17 22:00 05/19/17 21:58 Crestor PO 10 mg HS ELINA Administration Thiamine HCl 100 mg 04/11/17 22:30 05/20/17 06:38 Vitamin B1 Inj IV 100 mg Q8H ELINA Administration Timolol Maleate 1 drop 04/12/17 10:00 05/19/17 17:29 Timoptic 0.5% Ophth Soln OU 1 drop BID ELINA Administration Vitamin B Complex/Vit C/Folic Acid 1 tab 04/12/17 08:00 05/19/17 08:16 Nephro-Alonzo PO 1 tab 0800 ELINA Administration - Patient Studies Lab Studies: Lab Studies 05/20/17 05/20/17 05/20/17 Range/Units 06:23 06:23 06:23 WBC 23.2 H (4.8-10.8) K/uL RBC 2.66 L (3.80-5.20) Mil/uL Hgb 8.0 L (11.0-16.0) g/dL Hct 24.5 L (34.0-47.0) % MCV 92.1 D (81.0-99.0) fL MCH 30.1 (27.0-31.0) pg MCHC 32.7 L (33.0-37.0) g/dL RDW 15.7 H (11.5-14.5) % Plt Count 90 L D (130-400) K/uL MPV 10.5 (7.2-11.7) fL Neut % (Auto) 85.9 H (50.0-75.0) % Lymph % (Auto) 11.1 L (20.0-40.0) % [place] % (Auto) 0.7 (0.0-10.0) % Eos % (Auto) 1.5 (0.0-4.0) % Baso % (Auto) 0.8 (0.0-2.0) % Neut # 19.9 H (1.8-7.0) K/uL Lymph # 2.6 (1.0-4.3) K/uL [place] # 0.2 (0.0-0.8) K/uL Eos # 0.4 (0.0-0.7) K/uL Baso # 0.2 (0.0-0.2) K/uL Smear Path Review PT 18.1 H (9.7-12.2) SECONDS INR 1.6 Puncture Site pCO2 (35-45) mm/Hg pO2 (30-55) mm/Hg HCO3 (21-28) mmol/L ABG pH (7.35-7.45) ABG Total CO2 (22-28) mmol/L ABG O2 Saturation (95-98) % ABG Base Excess (-2.0-3.0) mmol/L Joey Test ABG Potassium (3.6-5.2) mmol/L VBG pH (7.32-7.43) VBG pCO2 (40-60) mmHg VBG HCO3 mmol/L VBG O2 Sat (Calc) (40-65) % VBG Base Excess (0.0-2.0) mmol/L A-a O2 Difference mm/Hg Respiratory Index Sodium 140 (132-148) mmol/l Chloride 98 (98-107) mmol/L Glucose (65-105) mg/dl Lactate (0.7-2.1) mmol/L Vent Mode Mechanical Rate FiO2 % Tidal Volume PEEP Crit Value Called To Crit Value Called By Crit Value Read Back Blood Gas Notified Time Potassium 4.1 (3.6-5.2) mmol/L Carbon Dioxide 12 L (22-30) mmol/L Anion Gap 33 H (10-20) BUN 51 H (7-17) mg/dL Creatinine 2.3 H (0.7-1.2) mg/dL Est GFR ( Amer) 25 Est GFR (Non-Af Amer) 21 POC Glucose (mg/dL) (65-110) mg/dL Random Glucose 146 H (65-105) mg/dL Calcium 6.0 L* (8.6-10.4) mg/dl Total Bilirubin 1.6 H (0.2-1.3) mg/dL AST 1228 H (14-36) U/L ALT 258 H D (9-52) U/L Alkaline Phosphatase 298 H (38-126) U/L Total Creatine Kinase (30-135) U/L CK-MB (Mass) (0.0-3.38) ng/mL Troponin I (0.00-0.120) ng/mL Total Protein 3.8 L (6.3-8.3) g/dL Albumin 2.3 L D (3.5-5.0) g/dL Globulin 1.5 L (2.2-3.9) gm/dL Albumin/Globulin Ratio 1.5 (1.0-2.1) Procalcitonin (0.19-0.49) NG/ML Arterial Blood Potassium (3.6-5.2) mmol/L Blood Type Antibody Screen 05/20/17 05/20/17 05/20/17 Range/Units 05:00 03:28 00:42 WBC (4.8-10.8) K/uL RBC (3.80-5.20) Mil/uL Hgb (11.0-16.0) g/dL Hct (34.0-47.0) % MCV (81.0-99.0) fL MCH (27.0-31.0) pg MCHC (33.0-37.0) g/dL RDW (11.5-14.5) % Plt Count (130-400) K/uL MPV (7.2-11.7) fL Neut % (Auto) (50.0-75.0) % Lymph % (Auto) (20.0-40.0) % [place] % (Auto) (0.0-10.0) % Eos % (Auto) (0.0-4.0) % Baso % (Auto) (0.0-2.0) % Neut # (1.8-7.0) K/uL Lymph # (1.0-4.3) K/uL [place] # (0.0-0.8) K/uL Eos # (0.0-0.7) K/uL Baso # (0.0-0.2) K/uL Smear Path Review PT (9.7-12.2) SECONDS INR Puncture Site Rt radial pCO2 17 L* (35-45) mm/Hg pO2 506 H (30-55) mm/Hg HCO3 16.0 L (21-28) mmol/L ABG pH 7.40 (7.35-7.45) ABG Total CO2 11.0 L (22-28) mmol/L ABG O2 Saturation 99.7 H (95-98) % ABG Base Excess -11.6 L (-2.0-3.0) mmol/L Joey Test Pos ABG Potassium 4.5 (3.6-5.2) mmol/L VBG pH (7.32-7.43) VBG pCO2 (40-60) mmHg VBG HCO3 mmol/L VBG O2 Sat (Calc) (40-65) % VBG Base Excess (0.0-2.0) mmol/L A-a O2 Difference 186.0 mm/Hg Respiratory Index 0.4 Sodium 142.0 (132-148) mmol/l Chloride 105.0 (98-107) mmol/L Glucose 163 H (65-105) mg/dl Lactate 9.9 H* (0.7-2.1) mmol/L Vent Mode Prvc Mechanical Rate 15 FiO2 100.0 % Tidal Volume 450 PEEP 5 Crit Value Called To Md orquidea jimenez Crit Value Called By R alert university relations director Crit Value Read Back Y Blood Gas Notified Time 620 Potassium (3.6-5.2) mmol/L Carbon Dioxide (22-30) mmol/L Anion Gap (10-20) BUN (7-17) mg/dL Creatinine (0.7-1.2) mg/dL Est GFR ( Amer) Est GFR (Non-Af Amer) POC Glucose (mg/dL) 180 H 234 H (65-110) mg/dL Random Glucose (65-105) mg/dL Calcium (8.6-10.4) mg/dl Total Bilirubin (0.2-1.3) mg/dL AST (14-36) U/L ALT (9-52) U/L Alkaline Phosphatase (38-126) U/L Total Creatine Kinase (30-135) U/L CK-MB (Mass) (0.0-3.38) ng/mL Troponin I (0.00-0.120) ng/mL Total Protein (6.3-8.3) g/dL Albumin (3.5-5.0) g/dL Globulin (2.2-3.9) gm/dL Albumin/Globulin Ratio (1.0-2.1) Procalcitonin (0.19-0.49) NG/ML Arterial Blood Potassium 4.5 (3.6-5.2) mmol/L Blood Type Antibody Screen 05/19/17 05/19/17 05/19/17 Range/Units 21:10 19:44 16:01 WBC (4.8-10.8) K/uL RBC (3.80-5.20) Mil/uL Hgb (11.0-16.0) g/dL Hct (34.0-47.0) % MCV (81.0-99.0) fL MCH (27.0-31.0) pg MCHC (33.0-37.0) g/dL RDW (11.5-14.5) % Plt Count (130-400) K/uL MPV (7.2-11.7) fL Neut % (Auto) (50.0-75.0) % Lymph % (Auto) (20.0-40.0) % [place] % (Auto) (0.0-10.0) % Eos % (Auto) (0.0-4.0) % Baso % (Auto) (0.0-2.0) % Neut # (1.8-7.0) K/uL Lymph # (1.0-4.3) K/uL [place] # (0.0-0.8) K/uL Eos # (0.0-0.7) K/uL Baso # (0.0-0.2) K/uL Smear Path Review PT (9.7-12.2) SECONDS INR Puncture Site Venous pCO2 (35-45) mm/Hg pO2 147 H (30-55) mm/Hg HCO3 (21-28) mmol/L ABG pH (7.35-7.45) ABG Total CO2 (22-28) mmol/L ABG O2 Saturation (95-98) % ABG Base Excess (-2.0-3.0) mmol/L Joey Test Na ABG Potassium (3.6-5.2) mmol/L VBG pH 7.11 L* (7.32-7.43) VBG pCO2 19 L* (40-60) mmHg VBG HCO3 8.1 mmol/L VBG O2 Sat (Calc) 99.9 H (40-65) % VBG Base Excess -21.6 L (0.0-2.0) mmol/L A-a O2 Difference mm/Hg Respiratory Index Sodium (132-148) mmol/l Chloride (98-107) mmol/L Glucose (65-105) mg/dl Lactate (0.7-2.1) mmol/L Vent Mode Mechanical Rate FiO2 % Tidal Volume PEEP Crit Value Called To Dr. mcknight icu Crit Value Called By Echo rt Crit Value Read Back Y Blood Gas Notified Time 2117 Potassium (3.6-5.2) mmol/L Carbon Dioxide (22-30) mmol/L Anion Gap (10-20) BUN (7-17) mg/dL Creatinine (0.7-1.2) mg/dL Est GFR ( Amer) Est GFR (Non-Af Amer) POC Glucose (mg/dL) 235 H 146 H (65-110) mg/dL Random Glucose (65-105) mg/dL Calcium (8.6-10.4) mg/dl Total Bilirubin (0.2-1.3) mg/dL AST (14-36) U/L ALT (9-52) U/L Alkaline Phosphatase (38-126) U/L Total Creatine Kinase (30-135) U/L CK-MB (Mass) (0.0-3.38) ng/mL Troponin I (0.00-0.120) ng/mL Total Protein (6.3-8.3) g/dL Albumin (3.5-5.0) g/dL Globulin (2.2-3.9) gm/dL Albumin/Globulin Ratio (1.0-2.1) Procalcitonin (0.19-0.49) NG/ML Arterial Blood Potassium (3.6-5.2) mmol/L Blood Type Antibody Screen 05/19/17 05/19/17 05/19/17 Range/Units 15:55 15:55 11:53 WBC (4.8-10.8) K/uL RBC (3.80-5.20) Mil/uL Hgb (11.0-16.0) g/dL Hct (34.0-47.0) % MCV (81.0-99.0) fL MCH (27.0-31.0) pg MCHC (33.0-37.0) g/dL RDW (11.5-14.5) % Plt Count (130-400) K/uL MPV (7.2-11.7) fL Neut % (Auto) (50.0-75.0) % Lymph % (Auto) (20.0-40.0) % [place] % (Auto) (0.0-10.0) % Eos % (Auto) (0.0-4.0) % Baso % (Auto) (0.0-2.0) % Neut # (1.8-7.0) K/uL Lymph # (1.0-4.3) K/uL [place] # (0.0-0.8) K/uL Eos # (0.0-0.7) K/uL Baso # (0.0-0.2) K/uL Smear Path Review PT (9.7-12.2) SECONDS INR Puncture Site pCO2 (35-45) mm/Hg pO2 (30-55) mm/Hg HCO3 (21-28) mmol/L ABG pH (7.35-7.45) ABG Total CO2 (22-28) mmol/L ABG O2 Saturation (95-98) % ABG Base Excess (-2.0-3.0) mmol/L Joey Test ABG Potassium (3.6-5.2) mmol/L VBG pH (7.32-7.43) VBG pCO2 (40-60) mmHg VBG HCO3 mmol/L VBG O2 Sat (Calc) (40-65) % VBG Base Excess (0.0-2.0) mmol/L A-a O2 Difference mm/Hg Respiratory Index Sodium (132-148) mmol/l Chloride (98-107) mmol/L Glucose (65-105) mg/dl Lactate (0.7-2.1) mmol/L Vent Mode Mechanical Rate FiO2 % Tidal Volume PEEP Crit Value Called To Crit Value Called By Crit Value Read Back Blood Gas Notified Time Potassium (3.6-5.2) mmol/L Carbon Dioxide (22-30) mmol/L Anion Gap (10-20) BUN (7-17) mg/dL Creatinine (0.7-1.2) mg/dL Est GFR ( Amer) Est GFR (Non-Af Amer) POC Glucose (mg/dL) 139 H (65-110) mg/dL Random Glucose (65-105) mg/dL Calcium (8.6-10.4) mg/dl Total Bilirubin (0.2-1.3) mg/dL AST (14-36) U/L ALT (9-52) U/L Alkaline Phosphatase (38-126) U/L Total Creatine Kinase 101 (30-135) U/L CK-MB (Mass) 2.86 (0.0-3.38) ng/mL Troponin I 0.2190 H* (0.00-0.120) ng/mL Total Protein (6.3-8.3) g/dL Albumin (3.5-5.0) g/dL Globulin (2.2-3.9) gm/dL Albumin/Globulin Ratio (1.0-2.1) Procalcitonin 31.56 H (0.19-0.49) NG/ML Arterial Blood Potassium (3.6-5.2) mmol/L Blood Type Antibody Screen 05/19/17 05/17/17 Range/Units 07:20 06:50 WBC (4.8-10.8) K/uL RBC (3.80-5.20) Mil/uL Hgb (11.0-16.0) g/dL Hct (34.0-47.0) % MCV (81.0-99.0) fL MCH (27.0-31.0) pg MCHC (33.0-37.0) g/dL RDW (11.5-14.5) % Plt Count (130-400) K/uL MPV (7.2-11.7) fL Neut % (Auto) (50.0-75.0) % Lymph % (Auto) (20.0-40.0) % [place] % (Auto) (0.0-10.0) % Eos % (Auto) (0.0-4.0) % Baso % (Auto) (0.0-2.0) % Neut # (1.8-7.0) K/uL Lymph # (1.0-4.3) K/uL [place] # (0.0-0.8) K/uL Eos # (0.0-0.7) K/uL Baso # (0.0-0.2) K/uL Smear Path Review PT (9.7-12.2) SECONDS INR Puncture Site pCO2 (35-45) mm/Hg pO2 (30-55) mm/Hg HCO3 (21-28) mmol/L ABG pH (7.35-7.45) ABG Total CO2 (22-28) mmol/L ABG O2 Saturation (95-98) % ABG Base Excess (-2.0-3.0) mmol/L Joey Test ABG Potassium (3.6-5.2) mmol/L VBG pH (7.32-7.43) VBG pCO2 (40-60) mmHg VBG HCO3 mmol/L VBG O2 Sat (Calc) (40-65) % VBG Base Excess (0.0-2.0) mmol/L A-a O2 Difference mm/Hg Respiratory Index Sodium (132-148) mmol/l Chloride (98-107) mmol/L Glucose (65-105) mg/dl Lactate (0.7-2.1) mmol/L Vent Mode Mechanical Rate FiO2 % Tidal Volume PEEP Crit Value Called To Crit Value Called By Crit Value Read Back Blood Gas Notified Time Potassium (3.6-5.2) mmol/L Carbon Dioxide (22-30) mmol/L Anion Gap (10-20) BUN (7-17) mg/dL Creatinine (0.7-1.2) mg/dL Est GFR ( Amer) Est GFR (Non-Af Amer) POC Glucose (mg/dL) (65-110) mg/dL Random Glucose (65-105) mg/dL Calcium (8.6-10.4) mg/dl Total Bilirubin (0.2-1.3) mg/dL AST (14-36) U/L ALT (9-52) U/L Alkaline Phosphatase (38-126) U/L Total Creatine Kinase (30-135) U/L CK-MB (Mass) (0.0-3.38) ng/mL Troponin I (0.00-0.120) ng/mL Total Protein (6.3-8.3) g/dL Albumin (3.5-5.0) g/dL Globulin (2.2-3.9) gm/dL Albumin/Globulin Ratio (1.0-2.1) Procalcitonin (0.19-0.49) NG/ML Arterial Blood Potassium (3.6-5.2) mmol/L Blood Type B POSITIVE Antibody Screen Negative Laboratory Results - last 24 hr 05/17/17 05/19/17 05/19/17 06:50 07:20 11:53 WBC RBC Hgb Hct MCV MCH MCHC RDW Plt Count MPV Neut % (Auto) Lymph % (Auto) [place] % (Auto) Eos % (Auto) Baso % (Auto) Neut # Lymph # [place] # Eos # Baso # Smear Path Review PT INR Puncture Site pCO2 pO2 HCO3 ABG pH ABG Total CO2 ABG O2 Saturation ABG Base Excess Joey Test ABG Potassium VBG pH VBG pCO2 VBG HCO3 VBG O2 Sat (Calc) VBG Base Excess A-a O2 Difference Respiratory Index Sodium Chloride Glucose Lactate Vent Mode Mechanical Rate FiO2 Tidal Volume PEEP Crit Value Called To Crit Value Called By Crit Value Read Back Blood Gas Notified Time Potassium Carbon Dioxide Anion Gap BUN Creatinine Est GFR ( Amer) Est GFR (Non-Af Amer) POC Glucose (mg/dL) 139 H Random Glucose Calcium Total Bilirubin AST ALT Alkaline Phosphatase Total Creatine Kinase CK-MB (Mass) Troponin I Total Protein Albumin Globulin Albumin/Globulin Ratio Procalcitonin Arterial Blood Potassium Blood Type B POSITIVE Antibody Screen Negative 05/19/17 05/19/17 05/19/17 15:55 15:55 16:01 WBC RBC Hgb Hct MCV MCH MCHC RDW Plt Count MPV Neut % (Auto) Lymph % (Auto) [place] % (Auto) Eos % (Auto) Baso % (Auto) Neut # Lymph # [place] # Eos # Baso # Smear Path Review PT INR Puncture Site pCO2 pO2 HCO3 ABG pH ABG Total CO2 ABG O2 Saturation ABG Base Excess Joey Test ABG Potassium VBG pH VBG pCO2 VBG HCO3 VBG O2 Sat (Calc) VBG Base Excess A-a O2 Difference Respiratory Index Sodium Chloride Glucose Lactate Vent Mode Mechanical Rate FiO2 Tidal Volume PEEP Crit Value Called To Crit Value Called By Crit Value Read Back Blood Gas Notified Time Potassium Carbon Dioxide Anion Gap BUN Creatinine Est GFR ( Amer) Est GFR (Non-Af Amer) POC Glucose (mg/dL) 146 H Random Glucose Calcium Total Bilirubin AST ALT Alkaline Phosphatase Total Creatine Kinase 101 CK-MB (Mass) 2.86 Troponin I 0.2190 H* Total Protein Albumin Globulin Albumin/Globulin Ratio Procalcitonin 31.56 H Arterial Blood Potassium Blood Type Antibody Screen 05/19/17 05/19/17 05/20/17 19:44 21:10 00:42 WBC RBC Hgb Hct MCV MCH MCHC RDW Plt Count MPV Neut % (Auto) Lymph % (Auto) [place] % (Auto) Eos % (Auto) Baso % (Auto) Neut # Lymph # [place] # Eos # Baso # Smear Path Review PT INR Puncture Site Venous pCO2 pO2 147 H HCO3 ABG pH ABG Total CO2 ABG O2 Saturation ABG Base Excess Joey Test Na ABG Potassium VBG pH 7.11 L* VBG pCO2 19 L* VBG HCO3 8.1 VBG O2 Sat (Calc) 99.9 H VBG Base Excess -21.6 L A-a O2 Difference Respiratory Index Sodium Chloride Glucose Lactate Vent Mode Mechanical Rate FiO2 Tidal Volume PEEP Crit Value Called To Dr. mcknight icu Crit Value Called By Echo rt Crit Value Read Back Y Blood Gas Notified Time 2117 Potassium Carbon Dioxide Anion Gap BUN Creatinine Est GFR ( Amer) Est GFR (Non-Af Amer) POC Glucose (mg/dL) 235 H 234 H Random Glucose Calcium Total Bilirubin AST ALT Alkaline Phosphatase Total Creatine Kinase CK-MB (Mass) Troponin I Total Protein Albumin Globulin Albumin/Globulin Ratio Procalcitonin Arterial Blood Potassium Blood Type Antibody Screen 05/20/17 05/20/17 05/20/17 03:28 05:00 06:23 WBC 23.2 H RBC 2.66 L Hgb 8.0 L Hct 24.5 L MCV 92.1 D MCH 30.1 MCHC 32.7 L RDW 15.7 H Plt Count 90 L D MPV 10.5 Neut % (Auto) 85.9 H Lymph % (Auto) 11.1 L [place] % (Auto) 0.7 Eos % (Auto) 1.5 Baso % (Auto) 0.8 Neut # 19.9 H Lymph # 2.6 [place] # 0.2 Eos # 0.4 Baso # 0.2 Smear Path Review PT INR Puncture Site Rt radial pCO2 17 L* pO2 506 H HCO3 16.0 L ABG pH 7.40 ABG Total CO2 11.0 L ABG O2 Saturation 99.7 H ABG Base Excess -11.6 L Joey Test Pos ABG Potassium 4.5 VBG pH VBG pCO2 VBG HCO3 VBG O2 Sat (Calc) VBG Base Excess A-a O2 Difference 186.0 Respiratory Index 0.4 Sodium 142.0 Chloride 105.0 Glucose 163 H Lactate 9.9 H* Vent Mode Prvc Mechanical Rate 15 FiO2 100.0 Tidal Volume 450 PEEP 5 Crit Value Called To Md orquidea jimenez Crit Value Called By Lucas lucero university relations director Crit Value Read Back Y Blood Gas Notified Time 620 Potassium Carbon Dioxide Anion Gap BUN Creatinine Est GFR ( Amer) Est GFR (Non-Af Amer) POC Glucose (mg/dL) 180 H Random Glucose Calcium Total Bilirubin AST ALT Alkaline Phosphatase Total Creatine Kinase CK-MB (Mass) Troponin I Total Protein Albumin Globulin Albumin/Globulin Ratio Procalcitonin Arterial Blood Potassium 4.5 Blood Type Antibody Screen 05/20/17 05/20/17 06:23 06:23 WBC RBC Hgb Hct MCV MCH MCHC RDW Plt Count MPV Neut % (Auto) Lymph % (Auto) [place] % (Auto) Eos % (Auto) Baso % (Auto) Neut # Lymph # [place] # Eos # Baso # Smear Path Review PT 18.1 H INR 1.6 Puncture Site pCO2 pO2 HCO3 ABG pH ABG Total CO2 ABG O2 Saturation ABG Base Excess Joey Test ABG Potassium VBG pH VBG pCO2 VBG HCO3 VBG O2 Sat (Calc) VBG Base Excess A-a O2 Difference Respiratory Index Sodium 140 Chloride 98 Glucose Lactate Vent Mode Mechanical Rate FiO2 Tidal Volume PEEP Crit Value Called To Crit Value Called By Crit Value Read Back Blood Gas Notified Time Potassium 4.1 Carbon Dioxide 12 L Anion Gap 33 H BUN 51 H Creatinine 2.3 H Est GFR ( Amer) 25 Est GFR (Non-Af Amer) 21 POC Glucose (mg/dL) Random Glucose 146 H Calcium 6.0 L* Total Bilirubin 1.6 H AST 1228 H ALT 258 H D Alkaline Phosphatase 298 H Total Creatine Kinase CK-MB (Mass) Troponin I Total Protein 3.8 L Albumin 2.3 L D Globulin 1.5 L Albumin/Globulin Ratio 1.5 Procalcitonin Arterial Blood Potassium Blood Type Antibody Screen EKG/Cardiology Studies: Cardiology / EKG Studies 05/19/17 11:23 EKG [ELECTROCARDIOGRAM] Stat Comment: Mode Of Transportation: Reason For Exam: ST elevation on monitor Precautions: Aspiration Pressure Ulcer Fall Prevention Fingerstick Blood Sugar Results: 180 Review of Systems - Review of Systems Systems not reviewed;Unavailable: Intubated Critical Care Progress Note - Nutrition Nutrition: Nutrition Category Date Time Status NPO Diet [DIET] Diets 05/19/17 Breakfast Active Assessment/Plan - Assessment and Plan (Free Text) Assessment: 71F with a history of renal failure on HD, congestive heart failure, diabetes, hypertension, peripheral vascular disease, history of left knee below-knee limitation who was brought to the ICU for sepsis. Patient with respiratory distress during dialysis on 05/13 and intubated. Plan: Neuro: Propofol drip Dialudid 0.5 mg IVP Q6H HEENT: brimonidine 0.2% 1 ml OU TID latanoprost 0.02 ml OU timolol 1 drop OU BID Respiratory: 05/13 - Intubated (15/450/5/60) - titrate FiO2 to maintain O2 > 92%) Blood gas: 7.40/17/506/16, sat 100% BiPAP trial with plan to extubate, as tolerated CXR 05/15: Stable position of endotracheal tube and right PICC line. No change in left lower lobe consolidation and moderate left pleural effusion. Chest CT angio: Filling defects are noted at both upper lobes pulmonary arteries suggestive of pulmonary embolus. Large bilateral effusion. Mild cardiomegaly. [id number] periocardial effusion. [id number] anasarca. Lower lobe atelectasis due to pleural effusion. HEM: H&H: 01/15.5 * 05/19: acute GI bleed over weekend per nursing - transfused 1 unit during dialysis PLT: 90 Eliquis 5mg PO daily Procrit Nephro: BUN/Cr: 51/2.3 Balance +3451.[address] Ambrose consulted, help appreciated Pt undergoes hemodialysis //Sat Bicarb drip for metabolic acidosis Ergocalcierol 1 capsule PO Q7D Procrit Fluid, Electrolytes, Diet: Netrophos BID Tube feeds Thiamine Vitamin B complex 05/15: Potassium 2.4 - Potassium Phosphate 15 mmole 255 mls @ 42.5 mls/hr Endo: DM ISS Lantus 10 units SC AMHS Accucheck Glucose Hypoglycemic protocol Cardio: hx of diastolic CHF EF 61% 05/19: ST elevation noted on monitor, EKG and JUANA ordered * Trop elevated 0.2190 * EKG showing possible anteroseptal infarct, age undetermined Midodrine 10 mg PRN Crestor 10 mg PO HS Timolol Maleate 1 drop OU BID ELINA Levophed ID: Sepsis WBC 23.2 Lactate * 5.3 on 05/11 and 05/13 * 3.0 on 05/15 * 10.8 05/19 procal > 200 (05/12) Tmax overnight 101 wound culture showing candidia tissue culture negative blood culture negative x48h Infecious Disease, Dr. Wellington consulted, help appreciated: recommends removing PICC line as source of infection Surgery, Dr. Broussard consulted, help appreciated: Examined AV fistula site due to poor flow. Recommendation is to insert permactah and Right IJ triple lumen Fluconazole 200 mg IVPB q24h Nystatin 1 g TOP Q8 Linezolid 600 mg Q12 Cefepime 1 g QD Wound vac for left AKA wound - not likely the source of elevated WBC count. Plans to change wound vac today GI Acute GI bleed over the weekend 05/20: Called Dr. Daily today to see the patient for new bleeding per rectum AST/ALT: 1228/258 - possibly ischemic damage to the liver TBili: 1.6 Prophylactic Care GI: Protonix 40 mg PO daily PEG tube feedings SCD to right lower extremity 05/20/17: Eliza came by today and had a talk with the family. Patient is now DNR/DNI. <Stalin John - Last Filed: 05/20/17 15:56> CCU Objective - Vital Signs / Intake & Output Vital Signs (Last 4 hours): Vital Signs Temp Pulse Resp BP Pulse Ox 05/20/17 13:10 98 F 78 22 165/36 H 100 05/20/17 12:40 130/39 L 05/20/17 12:10 128/38 L Intake and Output (Last 8hrs): Intake & Output 05/20/17 05/20/17 05/20/17 06:59 14:59 22:59 Intake Total 530 Output Total 200 Balance 330 Intake: Intake, IV Amount 530 Right PICC 50 Rt IJ Side port 'B" 480 Output: Stool 200 - Medications Active Medications: Active Medications Generic Name Dose Route Start Last Admin Trade Name Freq PRN Reason Stop Dose Admin Acetaminophen 650 mg 05/13/17 09:40 05/17/17 15:42 Tylenol 650mg/20.3ml Solution Ud PO 650 mg Q6 PRN Administration Fever >100.4 F Albumin Human 12.5 gm 05/13/17 12:00 05/20/17 10:25 Albumin Human 5% (12.5 Gm/250 Ml) IV 12.5 gm MWF PRN Administration hypotension Apixaban 5 mg 12/20/17 10:00 05/15/17 19:20 Eliquis PO 5 mg BID ELINA Administration Brimonidine Tartrate 1 ml 04/12/17 10:00 05/20/17 14:00 Alphagan 0.2% Opht OU 1 applic TID ELINA Administration Collagenase 0 gm 05/12/17 11:15 05/20/17 10:00 Santyl TOP 1 applic DAILY ELINA Administration Epoetin Maxwell 10,000 unit 04/27/17 12:00 05/20/17 10:29 Procrit IV 10,000 unit MWF ELINA Administration Ergocalciferol 1 cap 04/11/17 22:30 05/16/17 22:02 Drisdol 50,000 Intl Units Cap PO 1 cap Q7D ELINA Administration Hydrocortisone Sodium Succinate 50 mg 05/17/17 12:45 05/20/17 13:30 Solu-Cortef IV 50 mg Q8H ELINA Administration Linezolid 600 mg in 300 mls @ 200 mls/hr 05/12/17 22:00 05/20/17 14:00 Zyvox 600mg/300ml D5w IVPB 200 mls/hr Q12 ELINA Administration Propofol 1,000 mg in 100 mls @ 1.762 mls/hr 05/13/17 15:41 05/13/17 20:00 Diprivan IV 10 mcg/kg/min .Q24H PRN 3.524 mls/hr TITRATE PER MD ORDER Titration Protocol 5 MCG/KG/MIN Micafungin Sodium 100 mg/ 100 mls @ 100 mls/hr 05/14/17 20:00 05/19/17 20:17 Sodium Chloride IV 100 mls/hr Q24H ELINA Administration Norepinephrine Bitartrate 8 mg 250 mls @ 7.5 mls/hr 05/16/17 07:13 05/19/17 22:04 / Sodium Chloride IV 0 mcg/min .Q24H PRN 0 mls/hr TITRATE PER MD ORDER Titration Protocol 4 MCG/MIN Dopamine HCl/Dextrose 400 mg in 250 mls @ 4.5 mls/hr 05/18/17 11:00 05/18/17 12:14 Dopamine 400mg/250ml D5w IV 0 mcg/kg/min .Q24H PRN 0 mls/hr TITRATE PER MD ORDER Titration Protocol 2 MCG/KG/MIN Gentamicin Sulfate 80 mg/ 102 mls @ 100 mls/hr 05/20/17 09:00 05/20/17 09:00 Sodium Chloride IVPB 100 mls/hr MWF ELINA Administration Insulin Glargine 10 unit 05/14/17 22:00 05/20/17 10:00 Lantus SC Not Given AMHS ELINA Insulin Human Regular 0 unit 05/14/17 21:05 05/20/17 15:16 Novolin R SC Not Given Q4 ELINA Protocol Latanoprost 0.02 ml 04/12/17 22:00 05/19/17 21:59 Xalatan Opht OU 0.02 ml HS ELINA Administration Midodrine 10 mg 04/27/17 11:04 05/20/17 10:26 Proamatine PO 10 mg ONCE PRN Administration Diastolic blood pressure Nystatin 1 gm 05/11/17 15:51 05/20/17 15:22 Nystop Topical Powder TOP 1 applic Q8H ELINA Administration Pantoprazole Sodium 40 mg 05/17/17 10:00 05/20/17 10:00 Protonix Inj IVP 40 mg DAILY ELINA Administration Potassium Phos/Sodium Phos 1 pkt 05/13/17 09:00 05/20/17 09:00 Neutra-Phos PO 1 pkt BIDPC ELINA Administration Rosuvastatin Calcium 10 mg 04/12/17 22:00 05/19/17 21:58 Crestor PO 10 mg HS ELINA Administration Thiamine HCl 100 mg 04/11/17 22:30 05/20/17 15:15 Vitamin B1 Inj IV 100 mg Q8H ELINA Administration Timolol Maleate 1 drop 04/12/17 10:00 05/20/17 10:00 Timoptic 0.5% Ophth Soln OU 1 drop BID ELINA Administration Vitamin B Complex/Vit C/Folic Acid 1 tab 04/12/17 08:00 05/20/17 08:30 Nephro-Alonzo PO 1 tab 0800 ELINA Administration - Patient Studies Lab Studies: Lab Studies 05/20/17 05/20/17 05/20/17 Range/Units 11:58 06:23 06:23 WBC (4.8-10.8) K/uL RBC (3.80-5.20) Mil/uL Hgb (11.0-16.0) g/dL Hct (34.0-47.0) % MCV (81.0-99.0) fL MCH (27.0-31.0) pg MCHC (33.0-37.0) g/dL RDW (11.5-14.5) % Plt Count (130-400) K/uL MPV (7.2-11.7) fL Neut % (Auto) (50.0-75.0) % Lymph % (Auto) (20.0-40.0) % [place] % (Auto) (0.0-10.0) % Eos % (Auto) (0.0-4.0) % Baso % (Auto) (0.0-2.0) % Neut # (1.8-7.0) K/uL Lymph # (1.0-4.3) K/uL [place] # (0.0-0.8) K/uL Eos # (0.0-0.7) K/uL Baso # (0.0-0.2) K/uL Differential Comment PT 18.1 H (9.7-12.2) SECONDS INR 1.6 Puncture Site pCO2 (35-45) mm/Hg pO2 (30-55) mm/Hg HCO3 (21-28) mmol/L ABG pH (7.35-7.45) ABG Total CO2 (22-28) mmol/L ABG O2 Saturation (95-98) % ABG Base Excess (-2.0-3.0) mmol/L Joey Test ABG Potassium (3.6-5.2) mmol/L VBG pH (7.32-7.43) VBG pCO2 (40-60) mmHg VBG HCO3 mmol/L VBG O2 Sat (Calc) (40-65) % VBG Base Excess (0.0-2.0) mmol/L A-a O2 Difference mm/Hg Respiratory Index Sodium 140 (132-148) mmol/l Chloride 98 (98-107) mmol/L Glucose (65-105) mg/dl Lactate (0.7-2.1) mmol/L Vent Mode Mechanical Rate FiO2 % Tidal Volume PEEP Crit Value Called To Crit Value Called By Crit Value Read Back Blood Gas Notified Time Potassium 4.1 (3.6-5.2) mmol/L Carbon Dioxide 12 L (22-30) mmol/L Anion Gap 33 H (10-20) BUN 51 H (7-17) mg/dL Creatinine 2.3 H (0.7-1.2) mg/dL Est GFR ( Amer) 25 Est GFR (Non-Af Amer) 21 POC Glucose (mg/dL) 190 H (65-110) mg/dL Random Glucose 146 H (65-105) mg/dL Calcium 6.0 L* (8.6-10.4) mg/dl Total Bilirubin 1.6 H (0.2-1.3) mg/dL AST 1228 H (14-36) U/L ALT 258 H D (9-52) U/L Alkaline Phosphatase 298 H (38-126) U/L Total Creatine Kinase (30-135) U/L CK-MB (Mass) (0.0-3.38) ng/mL Troponin I (0.00-0.120) ng/mL Total Protein 3.8 L (6.3-8.3) g/dL Albumin 2.3 L D (3.5-5.0) g/dL Globulin 1.5 L (2.2-3.9) gm/dL Albumin/Globulin Ratio 1.5 (1.0-2.1) Procalcitonin (0.19-0.49) NG/ML Arterial Blood Potassium (3.6-5.2) mmol/L 05/20/17 05/20/17 05/20/17 Range/Units 06:23 05:00 03:28 WBC 23.2 H (4.8-10.8) K/uL RBC 2.66 L (3.80-5.20) Mil/uL Hgb 8.0 L (11.0-16.0) g/dL Hct 24.5 L (34.0-47.0) % MCV 92.1 D (81.0-99.0) fL MCH 30.1 (27.0-31.0) pg MCHC 32.7 L (33.0-37.0) g/dL RDW 15.7 H (11.5-14.5) % Plt Count 90 L D (130-400) K/uL MPV 10.5 (7.2-11.7) fL Neut % (Auto) 85.9 H (50.0-75.0) % Lymph % (Auto) 11.1 L (20.0-40.0) % [place] % (Auto) 0.7 (0.0-10.0) % Eos % (Auto) 1.5 (0.0-4.0) % Baso % (Auto) 0.8 (0.0-2.0) % Neut # 19.9 H (1.8-7.0) K/uL Lymph # 2.6 (1.0-4.3) K/uL [place] # 0.2 (0.0-0.8) K/uL Eos # 0.4 (0.0-0.7) K/uL Baso # 0.2 (0.0-0.2) K/uL Differential Comment PT (9.7-12.2) SECONDS INR Puncture Site Rt radial pCO2 17 L* (35-45) mm/Hg pO2 506 H (30-55) mm/Hg HCO3 16.0 L (21-28) mmol/L ABG pH 7.40 (7.35-7.45) ABG Total CO2 11.0 L (22-28) mmol/L ABG O2 Saturation 99.7 H (95-98) % ABG Base Excess -11.6 L (-2.0-3.0) mmol/L Joey Test Pos ABG Potassium 4.5 (3.6-5.2) mmol/L VBG pH (7.32-7.43) VBG pCO2 (40-60) mmHg VBG HCO3 mmol/L VBG O2 Sat (Calc) (40-65) % VBG Base Excess (0.0-2.0) mmol/L A-a O2 Difference 186.0 mm/Hg Respiratory Index 0.4 Sodium 142.0 (132-148) mmol/l Chloride 105.0 (98-107) mmol/L Glucose 163 H (65-105) mg/dl Lactate 9.9 H* (0.7-2.1) mmol/L Vent Mode Prvc Mechanical Rate 15 FiO2 100.0 % Tidal Volume 450 PEEP 5 Crit Value Called To Md orquidea jimenez Crit Value Called By R alert university relations director Crit Value Read Back Y Blood Gas Notified Time 620 Potassium (3.6-5.2) mmol/L Carbon Dioxide (22-30) mmol/L Anion Gap (10-20) BUN (7-17) mg/dL Creatinine (0.7-1.2) mg/dL Est GFR ( Amer) Est GFR (Non-Af Amer) POC Glucose (mg/dL) 180 H (65-110) mg/dL Random Glucose (65-105) mg/dL Calcium (8.6-10.4) mg/dl Total Bilirubin (0.2-1.3) mg/dL AST (14-36) U/L ALT (9-52) U/L Alkaline Phosphatase (38-126) U/L Total Creatine Kinase (30-135) U/L CK-MB (Mass) (0.0-3.38) ng/mL Troponin I (0.00-0.120) ng/mL Total Protein (6.3-8.3) g/dL Albumin (3.5-5.0) g/dL Globulin (2.2-3.9) gm/dL Albumin/Globulin Ratio (1.0-2.1) Procalcitonin (0.19-0.49) NG/ML Arterial Blood Potassium 4.5 (3.6-5.2) mmol/L 05/20/17 05/19/17 05/19/17 Range/Units 00:42 21:10 19:44 WBC (4.8-10.8) K/uL RBC (3.80-5.20) Mil/uL Hgb (11.0-16.0) g/dL Hct (34.0-47.0) % MCV (81.0-99.0) fL MCH (27.0-31.0) pg MCHC (33.0-37.0) g/dL RDW (11.5-14.5) % Plt Count (130-400) K/uL MPV (7.2-11.7) fL Neut % (Auto) (50.0-75.0) % Lymph % (Auto) (20.0-40.0) % [place] % (Auto) (0.0-10.0) % Eos % (Auto) (0.0-4.0) % Baso % (Auto) (0.0-2.0) % Neut # (1.8-7.0) K/uL Lymph # (1.0-4.3) K/uL [place] # (0.0-0.8) K/uL Eos # (0.0-0.7) K/uL Baso # (0.0-0.2) K/uL Differential Comment PT (9.7-12.2) SECONDS INR Puncture Site Venous pCO2 (35-45) mm/Hg pO2 147 H (30-55) mm/Hg HCO3 (21-28) mmol/L ABG pH (7.35-7.45) ABG Total CO2 (22-28) mmol/L ABG O2 Saturation (95-98) % ABG Base Excess (-2.0-3.0) mmol/L Joey Test Na ABG Potassium (3.6-5.2) mmol/L VBG pH 7.11 L* (7.32-7.43) VBG pCO2 19 L* (40-60) mmHg VBG HCO3 8.1 mmol/L VBG O2 Sat (Calc) 99.9 H (40-65) % VBG Base Excess -21.6 L (0.0-2.0) mmol/L A-a O2 Difference mm/Hg Respiratory Index Sodium (132-148) mmol/l Chloride (98-107) mmol/L Glucose (65-105) mg/dl Lactate (0.7-2.1) mmol/L Vent Mode Mechanical Rate FiO2 % Tidal Volume PEEP Crit Value Called To Dr. mcknight icu Crit Value Called By Echo rt Crit Value Read Back Y Blood Gas Notified Time 2117 Potassium (3.6-5.2) mmol/L Carbon Dioxide (22-30) mmol/L Anion Gap (10-20) BUN (7-17) mg/dL Creatinine (0.7-1.2) mg/dL Est GFR ( Amer) Est GFR (Non-Af Amer) POC Glucose (mg/dL) 234 H 235 H (65-110) mg/dL Random Glucose (65-105) mg/dL Calcium (8.6-10.4) mg/dl Total Bilirubin (0.2-1.3) mg/dL AST (14-36) U/L ALT (9-52) U/L Alkaline Phosphatase (38-126) U/L Total Creatine Kinase (30-135) U/L CK-MB (Mass) (0.0-3.38) ng/mL Troponin I (0.00-0.120) ng/mL Total Protein (6.3-8.3) g/dL Albumin (3.5-5.0) g/dL Globulin (2.2-3.9) gm/dL Albumin/Globulin Ratio (1.0-2.1) Procalcitonin (0.19-0.49) NG/ML Arterial Blood Potassium (3.6-5.2) mmol/L 05/19/17 05/19/17 05/19/17 Range/Units 16:01 15:55 15:55 WBC (4.8-10.8) K/uL RBC (3.80-5.20) Mil/uL Hgb (11.0-16.0) g/dL Hct (34.0-47.0) % MCV (81.0-99.0) fL MCH (27.0-31.0) pg MCHC (33.0-37.0) g/dL RDW (11.5-14.5) % Plt Count (130-400) K/uL MPV (7.2-11.7) fL Neut % (Auto) (50.0-75.0) % Lymph % (Auto) (20.0-40.0) % [place] % (Auto) (0.0-10.0) % Eos % (Auto) (0.0-4.0) % Baso % (Auto) (0.0-2.0) % Neut # (1.8-7.0) K/uL Lymph # (1.0-4.3) K/uL [place] # (0.0-0.8) K/uL Eos # (0.0-0.7) K/uL Baso # (0.0-0.2) K/uL Differential Comment PT (9.7-12.2) SECONDS INR Puncture Site pCO2 (35-45) mm/Hg pO2 (30-55) mm/Hg HCO3 (21-28) mmol/L ABG pH (7.35-7.45) ABG Total CO2 (22-28) mmol/L ABG O2 Saturation (95-98) % ABG Base Excess (-2.0-3.0) mmol/L Joey Test ABG Potassium (3.6-5.2) mmol/L VBG pH (7.32-7.43) VBG pCO2 (40-60) mmHg VBG HCO3 mmol/L VBG O2 Sat (Calc) (40-65) % VBG Base Excess (0.0-2.0) mmol/L A-a O2 Difference mm/Hg Respiratory Index Sodium (132-148) mmol/l Chloride (98-107) mmol/L Glucose (65-105) mg/dl Lactate (0.7-2.1) mmol/L Vent Mode Mechanical Rate FiO2 % Tidal Volume PEEP Crit Value Called To Crit Value Called By Crit Value Read Back Blood Gas Notified Time Potassium (3.6-5.2) mmol/L Carbon Dioxide (22-30) mmol/L Anion Gap (10-20) BUN (7-17) mg/dL Creatinine (0.7-1.2) mg/dL Est GFR ( Amer) Est GFR (Non-Af Amer) POC Glucose (mg/dL) 146 H (65-110) mg/dL Random Glucose (65-105) mg/dL Calcium (8.6-10.4) mg/dl Total Bilirubin (0.2-1.3) mg/dL AST (14-36) U/L ALT (9-52) U/L Alkaline Phosphatase (38-126) U/L Total Creatine Kinase 101 (30-135) U/L CK-MB (Mass) 2.86 (0.0-3.38) ng/mL Troponin I 0.2190 H* (0.00-0.120) ng/mL Total Protein (6.3-8.3) g/dL Albumin (3.5-5.0) g/dL Globulin (2.2-3.9) gm/dL Albumin/Globulin Ratio (1.0-2.1) Procalcitonin 31.56 H (0.19-0.49) NG/ML Arterial Blood Potassium (3.6-5.2) mmol/L Laboratory Results - last 24 hr 05/19/17 05/19/17 05/19/17 15:55 15:55 16:01 WBC RBC Hgb Hct MCV MCH MCHC RDW Plt Count MPV Neut % (Auto) Lymph % (Auto) [place] % (Auto) Eos % (Auto) Baso % (Auto) Neut # Lymph # [place] # Eos # Baso # Differential Comment PT INR Puncture Site pCO2 pO2 HCO3 ABG pH ABG Total CO2 ABG O2 Saturation ABG Base Excess Joey Test ABG Potassium VBG pH VBG pCO2 VBG HCO3 VBG O2 Sat (Calc) VBG Base Excess A-a O2 Difference Respiratory Index Sodium Chloride Glucose Lactate Vent Mode Mechanical Rate FiO2 Tidal Volume PEEP Crit Value Called To Crit Value Called By Crit Value Read Back Blood Gas Notified Time Potassium Carbon Dioxide Anion Gap BUN Creatinine Est GFR ( Amer) Est GFR (Non-Af Amer) POC Glucose (mg/dL) 146 H Random Glucose Calcium Total Bilirubin AST ALT Alkaline Phosphatase Total Creatine Kinase 101 CK-MB (Mass) 2.86 Troponin I 0.2190 H* Total Protein Albumin Globulin Albumin/Globulin Ratio Procalcitonin 31.56 H Arterial Blood Potassium 05/19/17 05/19/17 05/20/17 19:44 21:10 00:42 WBC RBC Hgb Hct MCV MCH MCHC RDW Plt Count MPV Neut % (Auto) Lymph % (Auto) [place] % (Auto) Eos % (Auto) Baso % (Auto) Neut # Lymph # [place] # Eos # Baso # Differential Comment PT INR Puncture Site Venous pCO2 pO2 147 H HCO3 ABG pH ABG Total CO2 ABG O2 Saturation ABG Base Excess Joey Test Na ABG Potassium VBG pH 7.11 L* VBG pCO2 19 L* VBG HCO3 8.1 VBG O2 Sat (Calc) 99.9 H VBG Base Excess -21.6 L A-a O2 Difference Respiratory Index Sodium Chloride Glucose Lactate Vent Mode Mechanical Rate FiO2 Tidal Volume PEEP Crit Value Called To Dr. mcknight icu Crit Value Called By [facility] rt Crit Value Read Back Y Blood Gas Notified Time 2117 Potassium Carbon Dioxide Anion Gap BUN Creatinine Est GFR ( Amer) Est GFR (Non-Af Amer) POC Glucose (mg/dL) 235 H 234 H Random Glucose Calcium Total Bilirubin AST ALT Alkaline Phosphatase Total Creatine Kinase CK-MB (Mass) Troponin I Total Protein Albumin Globulin Albumin/Globulin Ratio Procalcitonin Arterial Blood Potassium 05/20/17 05/20/17 05/20/17 03:28 05:00 06:23 WBC 23.2 H RBC 2.66 L Hgb 8.0 L Hct 24.5 L MCV 92.1 D MCH 30.1 MCHC 32.7 L RDW 15.7 H Plt Count 90 L D MPV 10.5 Neut % (Auto) 85.9 H Lymph % (Auto) 11.1 L [place] % (Auto) 0.7 Eos % (Auto) 1.5 Baso % (Auto) 0.8 Neut # 19.9 H Lymph # 2.6 [place] # 0.2 Eos # 0.4 Baso # 0.2 Differential Comment PT INR Puncture Site Rt radial pCO2 17 L* pO2 506 H HCO3 16.0 L ABG pH 7.40 ABG Total CO2 11.0 L ABG O2 Saturation 99.7 H ABG Base Excess -11.6 L Joey Test Pos ABG Potassium 4.5 VBG pH VBG pCO2 VBG HCO3 VBG O2 Sat (Calc) VBG Base Excess A-a O2 Difference 186.0 Respiratory Index 0.4 Sodium 142.0 Chloride 105.0 Glucose 163 H Lactate 9.9 H* Vent Mode Prvc Mechanical Rate 15 FiO2 100.0 Tidal Volume 450 PEEP 5 Crit Value Called To Md orquidea jimenez Crit Value Called By R alert university relations director Crit Value Read Back Y Blood Gas Notified Time 620 Potassium Carbon Dioxide Anion Gap BUN Creatinine Est GFR ( Amer) Est GFR (Non-Af Amer) POC Glucose (mg/dL) 180 H Random Glucose Calcium Total Bilirubin AST ALT Alkaline Phosphatase Total Creatine Kinase CK-MB (Mass) Troponin I Total Protein Albumin Globulin Albumin/Globulin Ratio Procalcitonin Arterial Blood Potassium 4.5 05/20/17 05/20/17 05/20/17 06:23 06:23 11:58 WBC RBC Hgb Hct MCV MCH MCHC RDW Plt Count MPV Neut % (Auto) Lymph % (Auto) [place] % (Auto) Eos % (Auto) Baso % (Auto) Neut # Lymph # [place] # Eos # Baso # Differential Comment PT 18.1 H INR 1.6 Puncture Site pCO2 pO2 HCO3 ABG pH ABG Total CO2 ABG O2 Saturation ABG Base Excess Joey Test ABG Potassium VBG pH VBG pCO2 VBG HCO3 VBG O2 Sat (Calc) VBG Base Excess A-a O2 Difference Respiratory Index Sodium 140 Chloride 98 Glucose Lactate Vent Mode Mechanical Rate FiO2 Tidal Volume PEEP Crit Value Called To Crit Value Called By Crit Value Read Back Blood Gas Notified Time Potassium 4.1 Carbon Dioxide 12 L Anion Gap 33 H BUN 51 H Creatinine 2.3 H Est GFR ( Amer) 25 Est GFR (Non-Af Amer) 21 POC Glucose (mg/dL) 190 H Random Glucose 146 H Calcium 6.0 L* Total Bilirubin 1.6 H AST 1228 H ALT 258 H D Alkaline Phosphatase 298 H Total Creatine Kinase CK-MB (Mass) Troponin I Total Protein 3.8 L Albumin 2.3 L D Globulin 1.5 L Albumin/Globulin Ratio 1.5 Procalcitonin Arterial Blood Potassium Critical Care Progress Note - Nutrition Nutrition: Nutrition Category Date Time Status NPO Diet [DIET] Diets 05/19/17 Breakfast Active Assessment/Plan (1) Pleural effusion Current Visit: No Status: Acute Attending/Attestation - Attestation I have personally seen and examined this patient.: Yes I have fully participated in the care of the patient.: Yes I have reviewed all pertinent clinical information: Yes Notes (Text): 05/20/17 15:55 patient seen and examined in the intensive care unit. case discussed with house staff in the morning rounds. Status post transfusion off 2 units packed RBCs yesterday Hemodialysis completed today On low-dose Levophed Continue antibiotics signed DNR/DNI On ventilator support Prognosis poor Off bicarbonate drip
[2017-05-20] MEDS: Multivitamin Vitamin B Complex (Nephro-Vite) Tab PO SCH (08:30)
[2017-05-20] MEDS: Potassium & Sodium Phosphate PO SCH ×2 (09:00→18:05)
[2017-05-20] MEDS: (Lantus) Insulin Glargine, Recombinant SC SCH ×2 (10:00→22:00)
[2017-05-20] MEDS: Brimonidine 0.2% Opth Sol (5ml) OU SCH ×3 (10:00→18:03)
[2017-05-20] MEDS: Collagenase 250 Units/gm Ointment(30 gm) TOP SCH (10:00)
--- NOTE | 2017-05-20 10:16 | RAD ---
HISTORY: Intubated/ infiltrate follow up COMPARISON: 05/19/2017 FINDINGS: LUNGS: No definite consolidation. Cannot rule out consolidation at left base due to superimposed pleural effusion. Probable calcified nodule at lateral right base consistent with granuloma. PLEURA: Small left pleural effusion. No right pleural effusion. No pneumothorax. CARDIOVASCULAR: Normal heart size. ET tube unchanged in position. Right PICC catheter unchanged. Right IJ multi lumen central venous catheter unchanged. OSSEOUS STRUCTURES: No significant abnormalities. VISUALIZED UPPER ABDOMEN: Normal. OTHER FINDINGS: None. IMPRESSION: Left pleural effusion, unchanged. Cannot rule out left basilar consolidation. Lines and tubes unchanged. Calcified granuloma at lateral right lung base.
[2017-05-20] MEDS: Albumin Human 5% (12.5 gm/250 ml) IV PRN (10:25)
[2017-05-20] MEDS: Epoetin Alfa 10,000 unit/ml Dialysis IV SCH (10:29)
--- NOTE | 2017-05-20 11:05 | CP.PCM.CON ---
History of Present Illness - History of Present Illness History of Present Illness: Palliative consult requested for family support and goals of care discussion Patient is a 71 yo admitted to this hospital with changes in mental status. Per patient's , patient first developed "small wound" ton her one feet. The wound become larger over time with multiple complications, requiring amputation at the end. Post surgery, patient was sent to [facility] where she become SOB and was transferred back to the hospital, the next day. The CT Chest confirmed B/L PEs. Patient's condition further declined. On 05/10/17 PEG was inserted due to poor PO intake. On 05/13/17 SOFTWARE IMPLEMENTATION PROJECT MANAGER was called for BP 82/56 and HR 113. Sepsis was diagnosed. Patient was inubated for respiratory support and transferred to ICU where was placed on pressors. Over time, despite all reasonable medical measures and interventions, patient's condition had declined significantly. Palliative care was called to discuss Code status with patient's . PMH: S/P BKA, ESRD with HD, anemia, anxiety, DM, HTN, Soc. Hx: , lives at home, has two son, very involved in care Fam. hx: mother with DM Review of Systems - Review of Systems All systems: reviewed and no additional remarkable complaints except Review of Systems: Per nursing, patient rmained intubated, sedated and on pressors. HD at present. Past Patient History - Infectious Disease Hx of Infectious Diseases: None - Tetanus Immunizations Tetanus Immunization: Unknown - Past Medical History & Family History Past Medical History?: Yes - Past Social History Smoking Status: Never Smoked - CARDIAC Hx Congestive Heart Failure: Yes Hx Hypertension: Yes - PULMONARY Hx Respiratory Disorders: No - NEUROLOGICAL Hx Neurological Disorder: No - HEENT Hx HEENT Problems: Yes Hx Cataracts: Yes - RENAL Hx Renal Failure: Yes (ESRD) - ENDOCRINE/METABOLIC Hx Diabetes Mellitus Type 2: Yes - HEMATOLOGICAL/ONCOLOGICAL Hx Anemia: Yes Hx Human Immunodeficiency Virus (HIV): No - INTEGUMENTARY Hx Dermatological Problems: No - MUSCULOSKELETAL/RHEUMATOLOGICAL Hx Musculoskeletal Disorders: Yes Hx Degenerative Joint Disease: Yes - GENITOURINARY/GYNECOLOGICAL Hx Genitourinary Disorders: Yes Hx Urinary Tract Infection: Yes - PSYCHIATRIC Hx Anxiety: Yes Hx Depression: Yes Hx Substance Use: No - SURGICAL HISTORY Hx Appendectomy: Yes - ANESTHESIA Hx Anesthesia: Yes Hx Anesthesia Reactions: No Hx Malignant Hyperthermia: No Meds Allergies/Adverse Reactions: Allergies Allergy/AdvReac Type Severity Reaction Status Date / Time No Known Allergies Allergy Verified 04/11/17 17:38 - Medications Medications: Current Medications Acetaminophen (Tylenol 650mg/20.3ml Solution Ud) 650 mg PO Q6 PRN PRN Reason: Fever >100.4 F Last Admin: 05/17/17 15:42 Dose: 650 mg Albumin Human (Albumin Human 5% (12.5 Gm/250 Ml)) 12.5 gm IV MWF PRN PRN Reason: hypotension Last Admin: 05/20/17 10:25 Dose: 12.5 gm Apixaban (Eliquis) 5 mg PO BID [facility] Last Admin: 05/15/17 19:20 Dose: 5 mg Brimonidine Tartrate (Alphagan 0.2% Opht) 1 ml OU TID [facility] Last Admin: 05/19/17 17:28 Dose: 1 applic Collagenase (Santyl) 0 gm TOP DAILY [facility] Last Admin: 05/19/17 12:06 Dose: Not Given Epoetin Maxwell (Procrit) 10,000 unit IV MWF [facility] Last Admin: 05/20/17 10:29 Dose: 10,000 unit Ergocalciferol (Drisdol 50,000 Intl Units Cap) 1 cap PO Q7D [facility] Last Admin: 05/16/17 22:02 Dose: 1 cap Hydrocortisone Sodium Succinate (Solu-Cortef) 50 mg IV Q8H [facility] Last Admin: 05/20/17 04:59 Dose: 50 mg Linezolid (Zyvox 600mg/300ml D5w) 600 mg in 300 mls @ 200 mls/hr IVPB Q12 [facility] Last Admin: 05/19/17 21:57 Dose: 200 mls/hr Propofol (Diprivan) 1,000 mg in 100 mls @ 1.762 mls/hr IV .Q24H PRN; Protocol; 5 MCG/KG/MIN PRN Reason: TITRATE PER MD ORDER Last Titration: 05/13/17 20:00 Dose: 10 mcg/kg/min, 3.524 mls/hr Micafungin Sodium 100 mg/ (Sodium Chloride) 100 mls @ 100 mls/hr IV Q24H [facility] Last Admin: 05/19/17 20:17 Dose: 100 mls/hr Norepinephrine Bitartrate 8 mg (/ Sodium Chloride) 250 mls @ 7.5 mls/hr IV .Q24H PRN; Protocol; 4 MCG/MIN PRN Reason: TITRATE PER MD ORDER Last Titration: 05/19/17 22:04 Dose: 0 mcg/min, 0 mls/hr Dopamine HCl/Dextrose (Dopamine 400mg/250ml D5w) 400 mg in 250 mls @ 4.5 mls/ hr IV .Q24H PRN; Protocol; 2 MCG/KG/MIN PRN Reason: TITRATE PER MD ORDER Last Titration: 05/18/17 12:14 Dose: 0 mcg/kg/min, 0 mls/hr Sodium Bicarbonate 150 meq/ (Sodium Chloride) 1,000 mls @ 60 mls/hr IV .[id number] [facility] Last Admin: 05/20/17 02:04 Dose: 60 mls/hr Gentamicin Sulfate 80 mg/ (Sodium Chloride) 102 mls @ 100 mls/hr IVPB MWF [facility] Insulin Glargine (Lantus) 10 unit SC AMHS [facility] Last Admin: 05/19/17 21:58 Dose: Not Given Insulin Human Regular (Novolin R) 0 unit SC Q4 [facility] PRN Reason: Protocol Last Admin: 05/20/17 03:33 Dose: Not Given Latanoprost (Xalatan Opht) 0.02 ml OU HS [facility] Last Admin: 05/19/17 21:59 Dose: 0.02 ml Midodrine (Proamatine) 10 mg PO ONCE PRN PRN Reason: Diastolic blood pressure Last Admin: 05/20/17 10:26 Dose: 10 mg Nystatin (Nystop Topical Powder) 1 gm TOP Q8H [facility] Last Admin: 05/20/17 07:33 Dose: 1 applic Pantoprazole Sodium (Protonix Inj) 40 mg IVP DAILY [facility] Last Admin: 05/19/17 09:07 Dose: 40 mg Potassium Phos/Sodium Phos (Neutra-Phos) 1 pkt PO BIDPC [facility] Last Admin: 05/19/17 17:30 Dose: 1 pkt Rosuvastatin Calcium (Crestor) 10 mg PO HS [facility] Last Admin: 05/19/17 21:58 Dose: 10 mg Thiamine HCl (Vitamin B1 Inj) 100 mg IV Q8H [facility] Last Admin: 05/20/17 06:38 Dose: 100 mg Timolol Maleate (Timoptic 0.5% Ophth Soln) 1 drop OU BID [facility] Last Admin: 05/19/17 17:29 Dose: 1 drop Vitamin B Complex/Vit C/Folic Acid (Nephro-Alonzo) 1 tab PO 0800 [facility] Last Admin: 05/19/17 08:16 Dose: 1 tab Physical Exam - Constitutional Appears: Chronically Ill - Head Exam Head Exam: ATRAUMATIC, NORMAL INSPECTION, NORMOCEPHALIC - Eye Exam Eye Exam: Normal appearance - ENT Exam ENT Exam: Mucous Membranes Dry Additional comments: ETT - Neck Exam Neck exam: Positive for: Normal Inspection - Respiratory Exam Respiratory Exam: Decreased Breath Sounds Additional comments: On MV - Cardiovascular Exam Cardiovascular Exam: Tachycardia, REGULAR RHYTHM - GI/Abdominal Exam Additional comments: PEG - Rectal Exam Rectal Exam: Deferred - Exam Additional comments: On HD - Extremities Exam Additional comments: BKA - Neurological Exam Neurological exam: Motor Sensory Deficit - Psychiatric Exam Psychiatric exam: Flat Affect - Skin Skin Exam: Pallor Results - Vital Signs Recent Vital Signs: Last Vital Signs Temp 99.2 F 05/20/17 04:00 Pulse 74 05/20/17 07:00 Resp 29 H 05/20/17 07:00 BP 144/36 L 05/20/17 06:55 Pulse Ox 100 05/20/17 07:00 - Labs Result Diagrams: 05/20/17 06:23 05/20/17 06:23 Labs: Laboratory Results - last 24 hr 05/17/17 05/19/17 05/19/17 06:50 07:20 11:53 WBC RBC Hgb Hct MCV MCH MCHC RDW Plt Count MPV Neut % (Auto) Lymph % (Auto) Griggs % (Auto) Eos % (Auto) Baso % (Auto) Neut # Lymph # Griggs # Eos # Baso # Differential Comment Smear Path Review PT INR Puncture Site pCO2 pO2 HCO3 ABG pH ABG Total CO2 ABG O2 Saturation ABG Base Excess Joey Test ABG Potassium VBG pH VBG pCO2 VBG HCO3 VBG O2 Sat (Calc) VBG Base Excess A-a O2 Difference Respiratory Index Sodium Chloride Glucose Lactate Vent Mode Mechanical Rate FiO2 Tidal Volume PEEP Crit Value Called To Crit Value Called By Crit Value Read Back Blood Gas Notified Time Potassium Carbon Dioxide Anion Gap BUN Creatinine Est GFR ( Amer) Est GFR (Non-Af Amer) POC Glucose (mg/dL) 139 H Random Glucose Calcium Total Bilirubin AST ALT Alkaline Phosphatase Total Creatine Kinase CK-MB (Mass) Troponin I Total Protein Albumin Globulin Albumin/Globulin Ratio Procalcitonin Arterial Blood Potassium Blood Type B POSITIVE Antibody Screen Negative 05/19/17 05/19/17 05/19/17 15:55 15:55 16:01 WBC RBC Hgb Hct MCV MCH MCHC RDW Plt Count MPV Neut % (Auto) Lymph % (Auto) Griggs % (Auto) Eos % (Auto) Baso % (Auto) Neut # Lymph # Griggs # Eos # Baso # Differential Comment Smear Path Review PT INR Puncture Site pCO2 pO2 HCO3 ABG pH ABG Total CO2 ABG O2 Saturation ABG Base Excess Joey Test ABG Potassium VBG pH VBG pCO2 VBG HCO3 VBG O2 Sat (Calc) VBG Base Excess A-a O2 Difference Respiratory Index Sodium Chloride Glucose Lactate Vent Mode Mechanical Rate FiO2 Tidal Volume PEEP Crit Value Called To Crit Value Called By Crit Value Read Back Blood Gas Notified Time Potassium Carbon Dioxide Anion Gap BUN Creatinine Est GFR ( Amer) Est GFR (Non-Af Amer) POC Glucose (mg/dL) 146 H Random Glucose Calcium Total Bilirubin AST ALT Alkaline Phosphatase Total Creatine Kinase 101 CK-MB (Mass) 2.86 Troponin I 0.2190 H* Total Protein Albumin Globulin Albumin/Globulin Ratio Procalcitonin 31.56 H Arterial Blood Potassium Blood Type Antibody Screen 05/19/17 05/19/17 05/20/17 19:44 21:10 00:42 WBC RBC Hgb Hct MCV MCH MCHC RDW Plt Count MPV Neut % (Auto) Lymph % (Auto) Griggs % (Auto) Eos % (Auto) Baso % (Auto) Neut # Lymph # Griggs # Eos # Baso # Differential Comment Smear Path Review PT INR Puncture Site Venous pCO2 pO2 147 H HCO3 ABG pH ABG Total CO2 ABG O2 Saturation ABG Base Excess Joey Test Na ABG Potassium VBG pH 7.11 L* VBG pCO2 19 L* VBG HCO3 8.1 VBG O2 Sat (Calc) 99.9 H VBG Base Excess -21.6 L A-a O2 Difference Respiratory Index Sodium Chloride Glucose Lactate Vent Mode Mechanical Rate FiO2 Tidal Volume PEEP Crit Value Called To Dr. mcknight icu Crit Value Called By Echo rt Crit Value Read Back Y Blood Gas Notified Time 2117 Potassium Carbon Dioxide Anion Gap BUN Creatinine Est GFR ( Amer) Est GFR (Non-Af Amer) POC Glucose (mg/dL) 235 H 234 H Random Glucose Calcium Total Bilirubin AST ALT Alkaline Phosphatase Total Creatine Kinase CK-MB (Mass) Troponin I Total Protein Albumin Globulin Albumin/Globulin Ratio Procalcitonin Arterial Blood Potassium Blood Type Antibody Screen 05/20/17 05/20/17 05/20/17 03:28 05:00 06:23 WBC 23.2 H RBC 2.66 L Hgb 8.0 L Hct 24.5 L MCV 92.1 D MCH 30.1 MCHC 32.7 L RDW 15.7 H Plt Count 90 L D MPV 10.5 Neut % (Auto) 85.9 H Lymph % (Auto) 11.1 L Griggs % (Auto) 0.7 Eos % (Auto) 1.5 Baso % (Auto) 0.8 Neut # 19.9 H Lymph # 2.6 Griggs # 0.2 Eos # 0.4 Baso # 0.2 Differential Comment Smear Path Review PT INR Puncture Site Rt radial pCO2 17 L* pO2 506 H HCO3 16.0 L ABG pH 7.40 ABG Total CO2 11.0 L ABG O2 Saturation 99.7 H ABG Base Excess -11.6 L Joey Test Pos ABG Potassium 4.5 VBG pH VBG pCO2 VBG HCO3 VBG O2 Sat (Calc) VBG Base Excess A-a O2 Difference 186.0 Respiratory Index 0.4 Sodium 142.0 Chloride 105.0 Glucose 163 H Lactate 9.9 H* Vent Mode Prvc Mechanical Rate 15 FiO2 100.0 Tidal Volume 450 PEEP 5 Crit Value Called To Md orquidea jimenez Crit Value Called By R alert auto cleaner Crit Value Read Back Y Blood Gas Notified Time 620 Potassium Carbon Dioxide Anion Gap BUN Creatinine Est GFR ( Amer) Est GFR (Non-Af Amer) POC Glucose (mg/dL) 180 H Random Glucose Calcium Total Bilirubin AST ALT Alkaline Phosphatase Total Creatine Kinase CK-MB (Mass) Troponin I Total Protein Albumin Globulin Albumin/Globulin Ratio Procalcitonin Arterial Blood Potassium 4.5 Blood Type Antibody Screen 05/20/17 05/20/17 06:23 06:23 WBC RBC Hgb Hct MCV MCH MCHC RDW Plt Count MPV Neut % (Auto) Lymph % (Auto) Griggs % (Auto) Eos % (Auto) Baso % (Auto) Neut # Lymph # Griggs # Eos # Baso # Differential Comment Smear Path Review PT 18.1 H INR 1.6 Puncture Site pCO2 pO2 HCO3 ABG pH ABG Total CO2 ABG O2 Saturation ABG Base Excess Joey Test ABG Potassium VBG pH VBG pCO2 VBG HCO3 VBG O2 Sat (Calc) VBG Base Excess A-a O2 Difference Respiratory Index Sodium 140 Chloride 98 Glucose Lactate Vent Mode Mechanical Rate FiO2 Tidal Volume PEEP Crit Value Called To Crit Value Called By Crit Value Read Back Blood Gas Notified Time Potassium 4.1 Carbon Dioxide 12 L Anion Gap 33 H BUN 51 H Creatinine 2.3 H Est GFR ( Amer) 25 Est GFR (Non-Af Amer) 21 POC Glucose (mg/dL) Random Glucose 146 H Calcium 6.0 L* Total Bilirubin 1.6 H AST 1228 H ALT 258 H D Alkaline Phosphatase 298 H Total Creatine Kinase CK-MB (Mass) Troponin I Total Protein 3.8 L Albumin 2.3 L D Globulin 1.5 L Albumin/Globulin Ratio 1.5 Procalcitonin Arterial Blood Potassium Blood Type Antibody Screen Assessment & Plan - Assessment and Plan (Free Text) Assessment: Palliative consult Code status prior to consult was Full Code, there is no advance directive on chart, PPS 10 % I reviewed medical records, all diagnostic studies, examined patint in the bed and discussed Code satus and goals of care with her . Patient is intubated, sedated, and unresponsive to stimuli. Levephed and Diprivan on board. Skin pale, Hb 8.0. There is edema to upper extremiies, Alb 2.3 and is being replaced. WBC 23.2, IV antibiotics on board. Procalcitonin level significantly elevated. Physical exam reveals a very sick patient with extremely poor prognosis. Goals of care and Code status discussed with Mr. Rosalba Nuñez. At the beginning of patient's admission, Patrick Cristina used to present him self as a very angry at everyone and everything, for what was going on with his . His denial was very strong. As patient's condition unfortunately has declined, he begun to understand severity of it. Today, Mr. Nguyen admitted that he came to realize that his was approaching the end of her life. He cried expressing his sorrow. At this point he would want his to be kept as comfortable as possible until " God takes her". Mr. Nguyen would want all measures being applied at present, to be continued; HD, pressors, IV antibiotics. If her heart stops, he would not ant the CPR to be performed. POLST reviewed. DNR/DNI signed. Impression * This is a very sick woman with complex multi organ failure * Patient is not able to advocate for her self * The came to realize that patient has entered the final stage of her life, and wants her to be allowed natural when it comes Suggestion * DNR/DNI * Continue all measures used as of now to support life * Promote comfort * Pastoral care for spiritual support to a family Thank you eladio madera for consulting Palliative care
--- NOTE | 2017-05-20 13:21 | PN ---
DATE: LOCATION: ICU 5. SUBJECTIVE: I was called for GI followup by the staple processing machine operator in the Intensive Care Unit. The patient is seen and fully examined in the presence of the medical and nursing staff in the Intensive Care Unit today with reported again old and fresh blood per rectum, but no hematemesis. The patient is still on PEG tube feeding without residual bleeding or resistance, orally intubated. Not responding to verbal stimuli. During my physical examination, I was informed by the staple processing machine operator, Dr. Brennan that the patient is DNR and DNI as per family and no aggressive GI procedure to be done or allowed at this point. Most recent lab results showed leukocytosis of 23.2 with low hemoglobin 8.3, low hematocrit 24.5 with thrombocytopenia of 90 with abnormal ABGs with lactate of 9.9, blood glucose level 163 with low CO2 content 12 indicative of severe metabolic acidosis, BUN 51, creatinine 2.3. The patient on hemodialysis with calcium is 6, blood glucose level 190 with elevated AST and ALT as well as alkaline phosphatase with slightly elevated total bilirubin to 1.6 with low albumin of 2.3, low total protein 3.6. Today's chest x-ray report is seen indicative of left pleural effusion. PHYSICAL EXAMINATION: GENERAL: A 71-year-old female, intubated. VITAL SIGNS: Afebrile with pulse of 68, blood pressure of 144/38. HEENT: Showed pale dry oral mucous membrane. Nonicteric sclerae. LUNGS: Few scattered crepitation. Decreased air entry at bases. The patient is intubated. ABDOMEN: Soft. PEG tube is in place without evidence of anterior abdominal wall cellulitis. Bowel sounds are hypoactive with mild distention. No mass or organomegaly. EXTREMITIES: With edematous changes. No clubbing or cyanosis. NEUROLOGIC: No reported new neurological deficits, focal sensory or motor. IMPRESSION: 1. Gastrointestinal bleeding, most likely drug induced in addition to the patient's thrombocytopenia. 2. Pneumonia, pleural effusion, respiratory failure. The patient is intubated. 3. Malnutrition, hypoalbuminemia, failure to thrive with status post percutaneous endoscopic gastrostomy insertion. 4. Septicemia with leukocytosis and severe metabolic acidosis. 5. Chronic renal failure, on hemodialysis. 6. Electrolyte imbalance, most likely secondary to above. SUGGESTION: 1. Continue supportive treatment with blood transfusion as needed. 2. No need for further aggressive GI workup. Close observation to follow. Karena Arias MD
[2017-05-20] MEDS: Linezolid 600 mg in D5W 300 ml 600 MG/300 ML BAG IVPB SCH ×2 (14:00→21:35)
[2017-05-20] MEDS: Micafungin 100 MG in Sodium Chloride 0.9% 100 ML IV SCH (20:10)
--- NOTE | 2017-05-20 20:15 | CP.PCM.PN ---
Subjective - Date & Time of Evaluation Date of Evaluation: 05/20/17 Time of Evaluation: 12:20 - Subjective Subjective: clinically same Objective - Vital Signs/Intake and Output Vital Signs (last 24 hours): Temp Pulse Resp BP Pulse Ox 98.6 F 85 17 113/37 L 100 05/20/17 16:00 05/20/17 19:04 05/20/17 19:04 05/20/17 19:04 05/20/17 19:04 Intake and Output: 05/20/17 05/21/17 18:59 06:59 Intake Total 469.3 Output Total 175 Balance 469.3 -175 - Medications Medications: Current Medications Acetaminophen (Tylenol 650mg/20.3ml Solution Ud) 650 mg PO Q6 PRN PRN Reason: Fever >100.4 F Last Admin: 05/17/17 15:42 Dose: 650 mg Albumin Human (Albumin Human 5% (12.5 Gm/250 Ml)) 12.5 gm IV MWF PRN PRN Reason: hypotension Last Admin: 05/20/17 10:25 Dose: 12.5 gm Apixaban (Eliquis) 5 mg PO BID [facility] Last Admin: 05/15/17 19:20 Dose: 5 mg Brimonidine Tartrate (Alphagan 0.2% Opht) 1 ml OU TID [facility] Last Admin: 05/20/17 18:03 Dose: 1 applic Collagenase (Santyl) 0 gm TOP DAILY [facility] Last Admin: 05/20/17 10:00 Dose: 1 applic Epoetin Maxwell (Procrit) 10,000 unit IV MWF [facility] Last Admin: 05/20/17 10:29 Dose: 10,000 unit Ergocalciferol (Drisdol 50,000 Intl Units Cap) 1 cap PO Q7D [facility] Last Admin: 05/16/17 22:02 Dose: 1 cap Hydrocortisone Sodium Succinate (Solu-Cortef) 50 mg IV Q8H [facility] Last Admin: 05/20/17 13:30 Dose: 50 mg Linezolid (Zyvox 600mg/300ml D5w) 600 mg in 300 mls @ 200 mls/hr IVPB Q12 [facility] Last Admin: 05/20/17 14:00 Dose: 200 mls/hr Propofol (Diprivan) 1,000 mg in 100 mls @ 1.762 mls/hr IV .Q24H PRN; Protocol; 5 MCG/KG/MIN PRN Reason: TITRATE PER MD ORDER Last Titration: 05/13/17 20:00 Dose: 10 mcg/kg/min, 3.524 mls/hr Micafungin Sodium 100 mg/ (Sodium Chloride) 100 mls @ 100 mls/hr IV Q24H [facility] Last Admin: 05/20/17 20:10 Dose: 100 mls/hr Norepinephrine Bitartrate 8 mg (/ Sodium Chloride) 250 mls @ 7.5 mls/hr IV .Q24H PRN; Protocol; 4 MCG/MIN PRN Reason: TITRATE PER MD ORDER Last Titration: 05/20/17 18:00 Dose: 0 mcg/min, 0 mls/hr Dopamine HCl/Dextrose (Dopamine 400mg/250ml D5w) 400 mg in 250 mls @ 4.5 mls/ hr IV .Q24H PRN; Protocol; 2 MCG/KG/MIN PRN Reason: TITRATE PER MD ORDER Last Titration: 05/18/17 12:14 Dose: 0 mcg/kg/min, 0 mls/hr Gentamicin Sulfate 80 mg/ (Sodium Chloride) 102 mls @ 100 mls/hr IVPB MWF [facility] Last Admin: 05/20/17 09:00 Dose: 100 mls/hr Insulin Glargine (Lantus) 10 unit SC AMHS [facility] Last Admin: 05/20/17 10:00 Dose: Not Given Insulin Human Regular (Novolin R) 0 unit SC Q4 [facility] PRN Reason: Protocol Last Admin: 05/20/17 20:00 Dose: Not Given Latanoprost (Xalatan Opht) 0.02 ml OU HS [facility] Last Admin: 05/19/17 21:59 Dose: 0.02 ml Midodrine (Proamatine) 10 mg PO ONCE PRN PRN Reason: Diastolic blood pressure Last Admin: 05/20/17 10:26 Dose: 10 mg Nystatin (Nystop Topical Powder) 1 gm TOP Q8H [facility] Last Admin: 05/20/17 15:22 Dose: 1 applic Pantoprazole Sodium (Protonix Inj) 40 mg IVP DAILY [facility] Last Admin: 05/20/17 10:00 Dose: 40 mg Potassium Phos/Sodium Phos (Neutra-Phos) 1 pkt PO BIDPC [facility] Last Admin: 05/20/17 18:05 Dose: 1 pkt Rosuvastatin Calcium (Crestor) 10 mg PO HS [facility] Last Admin: 05/19/17 21:58 Dose: 10 mg Thiamine HCl (Vitamin B1 Inj) 100 mg IV Q8H [facility] Last Admin: 05/20/17 15:15 Dose: 100 mg Timolol Maleate (Timoptic 0.5% Ophth Soln) 1 drop OU BID [facility] Last Admin: 05/20/17 18:04 Dose: 1 drop Vitamin B Complex/Vit C/Folic Acid (Nephro-Alonzo) 1 tab PO 0800 [facility] Last Admin: 05/20/17 08:30 Dose: 1 tab - Labs Labs: 05/20/17 06:23 05/20/17 06:23 PT 18.1 SECONDS (9.7-12.2) H 05/20/17 06:23 INR 1.6 05/20/17 06:23 APTT 37 SECONDS (21-34) H D 05/18/17 09:15
[2017-05-20] MEDS: Latanoprost 2.5 ml Opht Soln OU SCH (21:35)
--- NOTE | 2017-05-20 23:11 | CP.PCM.PN ---
Subjective - Date & Time of Evaluation Date of Evaluation: 05/20/17 Time of Evaluation: 16:00 - Subjective Subjective: SEEN IN ICU ..ON RENAL F/U BP HAS BEEN DROPPING LATELY REMAINS INTUBATED ,, Objective - Vital Signs/Intake and Output Vital Signs (last 24 hours): Temp Pulse Resp BP Pulse Ox 97.5 F L 80 20 110/28 L 100 05/20/17 20:00 05/20/17 22:02 05/20/17 22:02 05/20/17 22:02 05/20/17 22:02 Intake and Output: 05/20/17 05/21/17 18:59 06:59 Intake Total 469.3 400 Output Total 175 Balance 469.3 225 - Medications Medications: Current Medications Acetaminophen (Tylenol 650mg/20.3ml Solution Ud) 650 mg PO Q6 PRN PRN Reason: Fever >100.4 F Last Admin: 05/17/17 15:42 Dose: 650 mg Albumin Human (Albumin Human 5% (12.5 Gm/250 Ml)) 12.5 gm IV MWF PRN PRN Reason: hypotension Last Admin: 05/20/17 10:25 Dose: 12.5 gm Apixaban (Eliquis) 5 mg PO BID PENDING SALE TO [facility] Last Admin: 05/15/17 19:20 Dose: 5 mg Brimonidine Tartrate (Alphagan 0.2% Opht) 1 ml OU TID PENDING SALE TO [facility] Last Admin: 05/20/17 18:03 Dose: 1 applic Collagenase (Santyl) 0 gm TOP DAILY PENDING SALE TO [facility] Last Admin: 05/20/17 10:00 Dose: 1 applic Epoetin Maxwell (Procrit) 10,000 unit IV MWF PENDING SALE TO [facility] Last Admin: 05/20/17 10:29 Dose: 10,000 unit Ergocalciferol (Drisdol 50,000 Intl Units Cap) 1 cap PO Q7D PENDING SALE TO [facility] Last Admin: 05/16/17 22:02 Dose: 1 cap Hydrocortisone Sodium Succinate (Solu-Cortef) 50 mg IV Q8H PENDING SALE TO [facility] Last Admin: 05/20/17 20:15 Dose: 50 mg Linezolid (Zyvox 600mg/300ml D5w) 600 mg in 300 mls @ 200 mls/hr IVPB Q12 PENDING SALE TO [facility] Last Admin: 05/20/17 21:35 Dose: 200 mls/hr Propofol (Diprivan) 1,000 mg in 100 mls @ 1.762 mls/hr IV .Q24H PRN; Protocol; 5 MCG/KG/MIN PRN Reason: TITRATE PER MD ORDER Last Titration: 05/13/17 20:00 Dose: 10 mcg/kg/min, 3.524 mls/hr Micafungin Sodium 100 mg/ (Sodium Chloride) 100 mls @ 100 mls/hr IV Q24H PENDING SALE TO [facility] Last Admin: 05/20/17 20:10 Dose: 100 mls/hr Norepinephrine Bitartrate 8 mg (/ Sodium Chloride) 250 mls @ 7.5 mls/hr IV .Q24H PRN; Protocol; 4 MCG/MIN PRN Reason: TITRATE PER MD ORDER Last Titration: 05/20/17 18:00 Dose: 0 mcg/min, 0 mls/hr Dopamine HCl/Dextrose (Dopamine 400mg/250ml D5w) 400 mg in 250 mls @ 4.5 mls/ hr IV .Q24H PRN; Protocol; 2 MCG/KG/MIN PRN Reason: TITRATE PER MD ORDER Last Titration: 05/18/17 12:14 Dose: 0 mcg/kg/min, 0 mls/hr Gentamicin Sulfate 80 mg/ (Sodium Chloride) 102 mls @ 100 mls/hr IVPB MWF PENDING SALE TO [facility] Last Admin: 05/20/17 09:00 Dose: 100 mls/hr Insulin Glargine (Lantus) 10 unit SC [facility] PENDING SALE TO [facility] Last Admin: 05/20/17 22:00 Dose: Not Given Insulin Human Regular (Novolin R) 0 unit SC Q4 ELINA PRN Reason: Protocol Last Admin: 05/20/17 20:00 Dose: Not Given Latanoprost (Xalatan Opht) 0.02 ml OU HS PENDING SALE TO [facility] Last Admin: 05/20/17 21:35 Dose: 0.02 ml Midodrine (Proamatine) 10 mg PO ONCE PRN PRN Reason: Diastolic blood pressure Last Admin: 05/20/17 10:26 Dose: 10 mg Nystatin (Nystop Topical Powder) 1 gm TOP Q8H PENDING SALE TO [facility] Last Admin: 05/20/17 15:22 Dose: 1 applic Pantoprazole Sodium (Protonix Inj) 40 mg IVP DAILY PENDING SALE TO [facility] Last Admin: 05/20/17 10:00 Dose: 40 mg Potassium Phos/Sodium Phos (Neutra-Phos) 1 pkt PO BIDPC PENDING SALE TO [facility] Last Admin: 05/20/17 18:05 Dose: 1 pkt Rosuvastatin Calcium (Crestor) 10 mg PO HS PENDING SALE TO [facility] Last Admin: 05/20/17 22:00 Dose: Not Given Thiamine HCl (Vitamin B1 Inj) 100 mg IV Q8H PENDING SALE TO [facility] Last Admin: 05/20/17 21:35 Dose: 100 mg Timolol Maleate (Timoptic 0.5% Oph Soln) 1 drop OU BID PENDING SALE TO [facility] Last Admin: 05/20/17 18:04 Dose: 1 drop Vitamin B Complex/Vit C/Folic Acid (Nephro-Alonzo) 1 tab PO 0800 PENDING SALE TO [facility] Last Admin: 05/20/17 08:30 Dose: 1 tab - Labs Labs: 05/20/17 06:23 05/20/17 06:23 PT 18.1 SECONDS (9.7-12.2) H 05/20/17 06:23 INR 1.6 05/20/17 06:23 APTT 37 SECONDS (21-34) H D 05/18/17 09:15 Assessment and Plan - Assessment and Plan (Free Text) Assessment: ESRD ON HD M W F ANEMIA OF CKD .. ONEPO SEPSIS ON IVAB MMP P : C/O SUPPORTIVE CARE C/O HD C/O CURRENT MEDS
[2017-05-21] MEDS: (Novolin R) Insulin Human Regular 100 units/ml vial SC SCH ×6 (04:00→20:00)
[2017-05-21] MEDS: Thiamine 100 mg/ml Inj IV SCH ×3 (05:30→21:30)
[2017-05-21 05:40] LABS: ABG ALLEN TEST POS; ABG MECHANICAL RATE 15; ARTERIAL BLOOD GAS MODE PRVC; ARTERIAL BLOOD HGB O2 SAT 98.1 % (95.0-98.0); ATERIAL BLOOD GAS PEEP 5; CARBOXYHEMOGLOBIN 1.5 % (0.5-1.5); DRAW SITE RR; HHB -0.5 % (0.0-5.0); METHEMOGLOBIN 0.9 % (0.0-3.0)
[2017-05-21] MEDS ORDERED: Sodium Bicarbonate (8.4%) 50 Meq Syringe IVP STA (06:03)
[2017-05-21 06:10] LABS: BASO # 0.2 K/uL (0.0-0.2); EOS # 0.2 K/uL (0.0-0.7); EOS % 0.8 % (0.0-4.0); HEMATOCRIT 20.7 % (34.0-47.0); LYMPH # 2.6 K/uL (1.0-4.3); LYMPH % 12.1 % (20.0-40.0); MEAN CELL VOLUME 101.8 fL (81.0-99.0); MEAN CORPUSCULAR HEMOGLOBIN 30.8 pg (27.0-31.0); MEAN CORPUSCULAR HGB CONC 30.3 g/dL (33.0-37.0); MONO # 0.1 K/uL (0.0-0.8); MONO % 0.4 % (0.0-10.0); NRBC % 3.2 % (0.0-2.0); RED CELL DISTRIBUTION WIDTH 17.5 % (11.5-14.5); WHITE BLOOD COUNT 21.3 K/uL (4.8-10.8)
[2017-05-21 06:41] LABS: CARBON DIOXIDE < 5 mmol/L (22-30)
[2017-05-21 06:43] LABS: ALB/GLOB RATIO 1.4 (1.0-2.1); ALKALINE PHOSPHATASE 318 U/L (38-126); ALT/SGPT 184 U/L (9-52); AST/SGOT 593 U/L (14-36); BILIRUBIN,TOTAL 1.8 mg/dL (0.2-1.3); BLOOD UREA NITROGEN 30 mg/dL (7-17); CALCIUM 5.9 mg/dl (8.6-10.4); CHLORIDE 96 mmol/L (98-107); GFR AFRICAN-AMERICAN 32; GLUCOSE,RANDOM 252 mg/dL (65-105); MAGNESIUM 1.7 mg/dL (1.6-2.3); PHOSPHOROUS 7.4 mg/dL (2.5-4.5); SODIUM 134 mmol/L (132-148); TOTAL PROTEIN 3.4 g/dL (6.3-8.3)
[2017-05-21] MEDS: Multivitamin Vitamin B Complex (Nephro-Vite) Tab PO SCH (07:57)
--- NOTE | 2017-05-21 07:59 | CP.CCUPN ---
<Poonam Morel - Last Filed: 05/21/17 13:44> CCU Subjective - Physician Review Subjective (Free Text): 05/21/17 07:57 Patient seen and examined at bedside. No acute events overnight. Patient intubated/sedated. ROS unattainable. CCU Objective - Vital Signs / Intake & Output Vital Signs (Last 4 hours): Vital Signs Temp Pulse Resp BP Pulse Ox 05/21/17 07:07 63 18 89/19 L 05/21/17 07:03 58 L 20 86/17 L 05/21/17 07:00 54 L 21 71 L 05/21/17 06:02 72 20 109/17 L 05/21/17 05:02 74 18 107/20 L 100 05/21/17 04:02 72 19 92/16 L 100 05/21/17 04:00 97.9 F Intake and Output (Last 8hrs): Intake & Output 05/20/17 05/21/17 05/21/17 22:59 06:59 14:59 Intake Total 432.3 18.8 33.1 Output Total 175 125 Balance 257.3 -106.2 33.1 Weight 127 lb 13.89 oz Intake: IV 25 0 20 Intake, IV Amount 407.3 18.8 13.1 Right IJ Side Port 400 0 0 Right IJ Side Port #2 7.3 Right PICC 18.8 13.1 Output: Urine 0 Urine, Voided 0 Stool 175 125 - Physical Exam Physical Exam Limitations: Positive for: Other (intubated/sedated ) Head: Positive for: Atraumatic Pupils: Positive for: PERRL Conjunctiva: Positive for: Normal Mouth: Positive for: Other (ET tube ) Respiratory/Chest: Positive for: Clear to Auscultation, Good Air Exchange, Other (intubated ). Negative for: Respiratory Distress, Accessory Muscle Use, Wheezes, Rales, Rhonchi Cardiovascular: Positive for: Regular Rate and Rhythm, Normal S1, S2 Abdomen: Positive for: Feeding Tubes. Negative for: Tenderness, Distention Upper Extremity: Positive for: Cyanosis (fingertips ), Edema Lower Extremity: Positive for: Edema, Other (s/p left AKA, wound of surgical site with wound vac ) Neurological: Positive for: Other (Intubated and sedated ) Skin: Positive for: Warm, Dry, Pale - Medications Active Medications: Active Medications Generic Name Dose Route Start Last Admin Trade Name Freq PRN Reason Stop Dose Admin Acetaminophen 650 mg 05/13/17 09:40 05/17/17 15:42 Tylenol 650mg/20.3ml Solution Ud PO 650 mg Q6 PRN Administration Fever >100.4 F Albumin Human 12.5 gm 05/13/17 12:00 05/20/17 10:25 Albumin Human 5% (12.5 Gm/250 Ml) IV 12.5 gm MWF PRN Administration hypotension Apixaban 5 mg 05/13/17 10:00 05/15/17 19:20 Eliquis PO 5 mg BID ELINA Administration Brimonidine Tartrate 1 ml 04/12/17 10:00 05/20/17 18:03 Alphagan 0.2% Opht OU 1 applic TID ELINA Administration Collagenase 0 gm 05/12/17 11:15 05/20/17 10:00 Santyl TOP 1 applic DAILY ELINA Administration Epoetin Maxwell 10,000 unit 04/27/17 12:00 05/20/17 10:29 Procrit IV 10,000 unit MWF ELINA Administration Ergocalciferol 1 cap 04/11/17 22:30 05/16/17 22:02 Drisdol 50,000 Intl Units Cap PO 1 cap Q7D ELINA Administration Hydrocortisone Sodium Succinate 50 mg 05/17/17 12:45 05/21/17 05:15 Solu-Cortef IV 50 mg Q8H ELINA Administration Linezolid 600 mg in 300 mls @ 200 mls/hr 05/12/17 22:00 05/20/17 21:35 Zyvox 600mg/300ml D5w IVPB 200 mls/hr Q12 ELINA Administration Propofol 1,000 mg in 100 mls @ 1.762 mls/hr 05/13/17 15:41 05/13/17 20:00 Diprivan IV 10 mcg/kg/min .Q24H PRN 3.524 mls/hr TITRATE PER MD ORDER Titration Protocol 5 MCG/KG/MIN Micafungin Sodium 100 mg/ 100 mls @ 100 mls/hr 05/14/17 20:00 05/20/17 20:10 Sodium Chloride IV 100 mls/hr Q24H ELINA Administration Norepinephrine Bitartrate 8 mg 250 mls @ 7.5 mls/hr 05/16/17 07:13 05/21/17 07:00 / Sodium Chloride IV 7 mcg/min .Q24H PRN 13.12 mls/hr TITRATE PER MD ORDER Titration Protocol 4 MCG/MIN Dopamine HCl/Dextrose 400 mg in 250 mls @ 4.5 mls/hr 05/18/17 11:00 05/18/17 12:14 Dopamine 400mg/250ml D5w IV 0 mcg/kg/min .Q24H PRN 0 mls/hr TITRATE PER MD ORDER Titration Protocol 2 MCG/KG/MIN Gentamicin Sulfate 80 mg/ 102 mls @ 100 mls/hr 05/20/17 09:00 05/20/17 09:00 Sodium Chloride IVPB 100 mls/hr MWF ELINA Administration Insulin Glargine 10 unit 05/14/17 22:00 05/20/17 22:00 Lantus SC Not Given AMHS ELINA Insulin Human Regular 0 unit 05/14/17 21:05 05/21/17 04:00 Novolin R SC Not Given Q4 ELINA Protocol Latanoprost 0.02 ml 04/12/17 22:00 05/20/17 21:35 Xalatan Opht OU 0.02 ml HS ELINA Administration Midodrine 10 mg 04/27/17 11:04 05/20/17 10:26 Proamatine PO 10 mg ONCE PRN Administration Diastolic blood pressure Nystatin 1 gm 05/11/17 15:51 05/21/17 00:00 Nystop Topical Powder TOP 1 applic Q8H ELINA Administration Pantoprazole Sodium 40 mg 05/17/17 10:00 05/20/17 10:00 Protonix Inj IVP 40 mg DAILY ELINA Administration Potassium Phos/Sodium Phos 1 pkt 05/13/17 09:00 05/20/17 18:05 Neutra-Phos PO 1 pkt BIDPC ELINA Administration Rosuvastatin Calcium 10 mg 04/12/17 22:00 05/20/17 22:00 Crestor PO Not Given HS ELINA Thiamine HCl 100 mg 04/11/17 22:30 05/21/17 05:30 Vitamin B1 Inj IV 100 mg Q8H ELINA Administration Timolol Maleate 1 drop 04/12/17 10:00 05/20/17 18:04 Timoptic 0.5% Ophth Soln OU 1 drop BID ELINA Administration Vitamin B Complex/Vit C/Folic Acid 1 tab 04/12/17 08:00 05/20/17 08:30 Nephro-Alonzo PO 1 tab 0800 ELINA Administration - Patient Studies Lab Studies: Lab Studies 05/21/17 05/21/17 05/21/17 Range/Units 07:33 06:05 06:05 WBC 21.3 H (4.8-10.8) K/uL RBC 2.03 L (3.80-5.20) Mil/uL Hgb 6.3 L* (11.0-16.0) g/dL Hct 20.7 L (34.0-47.0) % MCV 101.8 H D (81.0-99.0) fL MCH 30.8 (27.0-31.0) pg MCHC 30.3 L (33.0-37.0) g/dL RDW 17.5 H (11.5-14.5) % Plt Count 56 L D (130-400) K/uL MPV 11.0 (7.2-11.7) fL Neut % (Auto) 85.7 H (50.0-75.0) % Lymph % (Auto) 12.1 L (20.0-40.0) % Christian % (Auto) 0.4 (0.0-10.0) % Eos % (Auto) 0.8 (0.0-4.0) % Baso % (Auto) 1.0 (0.0-2.0) % Neut # 18.2 H (1.8-7.0) K/uL Lymph # 2.6 (1.0-4.3) K/uL Christian # 0.1 (0.0-0.8) K/uL Eos # 0.2 (0.0-0.7) K/uL Baso # 0.2 (0.0-0.2) K/uL Differential Comment Puncture Site pCO2 (35-45) mm/Hg pO2 (80-100) mm/Hg HCO3 (21-28) mmol/L ABG pH (7.35-7.45) ABG Total CO2 (22-28) mmol/L ABG O2 Saturation (95-98) % ABG Base Excess (-2.0-3.0) mmol/L ABG Hemoglobin (11.7-17.4) g/dL ABG Carboxyhemoglobin (0.5-1.5) % POC ABG HHb (Measured) (0.0-5.0) % ABG Methemoglobin (0.0-3.0) % Joey Test A-a O2 Difference mm/Hg Respiratory Index Hgb O2 Saturation (95.0-98.0) % Vent Mode Mechanical Rate FiO2 % Tidal Volume PEEP Crit Value Called To Crit Value Called By Crit Value Read Back Blood Gas Notified Time Sodium 134 (132-148) mmol/L Potassium 5.0 (3.6-5.2) mmol/L Chloride 96 L (98-107) mmol/L Carbon Dioxide < 5 L* D (22-30) mmol/L Anion Gap 43 H (10-20) BUN 30 H (7-17) mg/dL Creatinine 1.9 H (0.7-1.2) mg/dL Est GFR ( Amer) 32 Est GFR (Non-Af Amer) 26 POC Glucose (mg/dL) 264 H (65-110) mg/dL Random Glucose 252 H (65-105) mg/dL Calcium 5.9 L* (8.6-10.4) mg/dl Phosphorus 7.4 H (2.5-4.5) mg/dL Magnesium 1.7 (1.6-2.3) mg/dL Total Bilirubin 1.8 H (0.2-1.3) mg/dL AST 593 H D (14-36) U/L ALT 184 H D (9-52) U/L Alkaline Phosphatase 318 H (38-126) U/L Total Protein 3.4 L (6.3-8.3) g/dL Albumin 2.0 L (3.5-5.0) g/dL Globulin 1.4 L (2.2-3.9) gm/dL Albumin/Globulin Ratio 1.4 (1.0-2.1) 05/21/17 05/21/17 05/20/17 Range/Units 05:13 04:13 23:46 WBC (4.8-10.8) K/uL RBC (3.80-5.20) Mil/uL Hgb (11.0-16.0) g/dL Hct (34.0-47.0) % MCV (81.0-99.0) fL MCH (27.0-31.0) pg MCHC (33.0-37.0) g/dL RDW (11.5-14.5) % Plt Count (130-400) K/uL MPV (7.2-11.7) fL Neut % (Auto) (50.0-75.0) % Lymph % (Auto) (20.0-40.0) % Christian % (Auto) (0.0-10.0) % Eos % (Auto) (0.0-4.0) % Baso % (Auto) (0.0-2.0) % Neut # (1.8-7.0) K/uL Lymph # (1.0-4.3) K/uL Christian # (0.0-0.8) K/uL Eos # (0.0-0.7) K/uL Baso # (0.0-0.2) K/uL Differential Comment Puncture Site Rr pCO2 18 L* (35-45) mm/Hg pO2 290 H (80-100) mm/Hg HCO3 4.6 L* (21-28) mmol/L ABG pH 6.94 L* (7.35-7.45) ABG Total CO2 4.5 L (22-28) mmol/L ABG O2 Saturation 100.5 H (95-98) % ABG Base Excess -26.1 L (-2.0-3.0) mmol/L ABG Hemoglobin 6.3 L (11.7-17.4) g/dL ABG Carboxyhemoglobin 1.5 (0.5-1.5) % POC ABG HHb (Measured) -0.5 L (0.0-5.0) % ABG Methemoglobin 0.9 (0.0-3.0) % Joey Test Pos A-a O2 Difference 115.0 mm/Hg Respiratory Index 0.4 Hgb O2 Saturation 98.1 H (95.0-98.0) % Vent Mode Prvc Mechanical Rate 15 FiO2 60.0 % Tidal Volume 450 PEEP 5 Crit Value Called To Sarmad rn Crit Value Called By Gely sprinkler fitter apprentice Crit Value Read Back Y Blood Gas Notified Time 539 Sodium (132-148) mmol/L Potassium (3.6-5.2) mmol/L Chloride (98-107) mmol/L Carbon Dioxide (22-30) mmol/L Anion Gap (10-20) BUN (7-17) mg/dL Creatinine (0.7-1.2) mg/dL Est GFR ( Amer) Est GFR (Non-Af Amer) POC Glucose (mg/dL) 260 H 224 H (65-110) mg/dL Random Glucose (65-105) mg/dL Calcium (8.6-10.4) mg/dl Phosphorus (2.5-4.5) mg/dL Magnesium (1.6-2.3) mg/dL Total Bilirubin (0.2-1.3) mg/dL AST (14-36) U/L ALT (9-52) U/L Alkaline Phosphatase (38-126) U/L Total Protein (6.3-8.3) g/dL Albumin (3.5-5.0) g/dL Globulin (2.2-3.9) gm/dL Albumin/Globulin Ratio (1.0-2.1) 05/20/17 05/20/17 05/20/17 Range/Units 19:51 16:07 11:58 WBC (4.8-10.8) K/uL RBC (3.80-5.20) Mil/uL Hgb (11.0-16.0) g/dL Hct (34.0-47.0) % MCV (81.0-99.0) fL MCH (27.0-31.0) pg MCHC (33.0-37.0) g/dL RDW (11.5-14.5) % Plt Count (130-400) K/uL MPV (7.2-11.7) fL Neut % (Auto) (50.0-75.0) % Lymph % (Auto) (20.0-40.0) % Christian % (Auto) (0.0-10.0) % Eos % (Auto) (0.0-4.0) % Baso % (Auto) (0.0-2.0) % Neut # (1.8-7.0) K/uL Lymph # (1.0-4.3) K/uL Christian # (0.0-0.8) K/uL Eos # (0.0-0.7) K/uL Baso # (0.0-0.2) K/uL Differential Comment Puncture Site pCO2 (35-45) mm/Hg pO2 (80-100) mm/Hg HCO3 (21-28) mmol/L ABG pH (7.35-7.45) ABG Total CO2 (22-28) mmol/L ABG O2 Saturation (95-98) % ABG Base Excess (-2.0-3.0) mmol/L ABG Hemoglobin (11.7-17.4) g/dL ABG Carboxyhemoglobin (0.5-1.5) % POC ABG HHb (Measured) (0.0-5.0) % ABG Methemoglobin (0.0-3.0) % Joey Test A-a O2 Difference mm/Hg Respiratory Index Hgb O2 Saturation (95.0-98.0) % Vent Mode Mechanical Rate FiO2 % Tidal Volume PEEP Crit Value Called To Crit Value Called By Crit Value Read Back Blood Gas Notified Time Sodium (132-148) mmol/L Potassium (3.6-5.2) mmol/L Chloride (98-107) mmol/L Carbon Dioxide (22-30) mmol/L Anion Gap (10-20) BUN (7-17) mg/dL Creatinine (0.7-1.2) mg/dL Est GFR ( Amer) Est GFR (Non-Af Amer) POC Glucose (mg/dL) 212 H 191 H 190 H (65-110) mg/dL Random Glucose (65-105) mg/dL Calcium (8.6-10.4) mg/dl Phosphorus (2.5-4.5) mg/dL Magnesium (1.6-2.3) mg/dL Total Bilirubin (0.2-1.3) mg/dL AST (14-36) U/L ALT (9-52) U/L Alkaline Phosphatase (38-126) U/L Total Protein (6.3-8.3) g/dL Albumin (3.5-5.0) g/dL Globulin (2.2-3.9) gm/dL Albumin/Globulin Ratio (1.0-2.1) 05/20/17 Range/Units 06:23 WBC (4.8-10.8) K/uL RBC (3.80-5.20) Mil/uL Hgb (11.0-16.0) g/dL Hct (34.0-47.0) % MCV (81.0-99.0) fL MCH (27.0-31.0) pg MCHC (33.0-37.0) g/dL RDW (11.5-14.5) % Plt Count (130-400) K/uL MPV (7.2-11.7) fL Neut % (Auto) (50.0-75.0) % Lymph % (Auto) (20.0-40.0) % Christian % (Auto) (0.0-10.0) % Eos % (Auto) (0.0-4.0) % Baso % (Auto) (0.0-2.0) % Neut # (1.8-7.0) K/uL Lymph # (1.0-4.3) K/uL Christian # (0.0-0.8) K/uL Eos # (0.0-0.7) K/uL Baso # (0.0-0.2) K/uL Differential Comment Puncture Site pCO2 (35-45) mm/Hg pO2 (80-100) mm/Hg HCO3 (21-28) mmol/L ABG pH (7.35-7.45) ABG Total CO2 (22-28) mmol/L ABG O2 Saturation (95-98) % ABG Base Excess (-2.0-3.0) mmol/L ABG Hemoglobin (11.7-17.4) g/dL ABG Carboxyhemoglobin (0.5-1.5) % POC ABG HHb (Measured) (0.0-5.0) % ABG Methemoglobin (0.0-3.0) % Joey Test A-a O2 Difference mm/Hg Respiratory Index Hgb O2 Saturation (95.0-98.0) % Vent Mode Mechanical Rate FiO2 % Tidal Volume PEEP Crit Value Called To Crit Value Called By Crit Value Read Back Blood Gas Notified Time Sodium (132-148) mmol/L Potassium (3.6-5.2) mmol/L Chloride (98-107) mmol/L Carbon Dioxide (22-30) mmol/L Anion Gap (10-20) BUN (7-17) mg/dL Creatinine (0.7-1.2) mg/dL Est GFR ( Amer) Est GFR (Non-Af Amer) POC Glucose (mg/dL) (65-110) mg/dL Random Glucose (65-105) mg/dL Calcium (8.6-10.4) mg/dl Phosphorus (2.5-4.5) mg/dL Magnesium (1.6-2.3) mg/dL Total Bilirubin (0.2-1.3) mg/dL AST (14-36) U/L ALT (9-52) U/L Alkaline Phosphatase (38-126) U/L Total Protein (6.3-8.3) g/dL Albumin (3.5-5.0) g/dL Globulin (2.2-3.9) gm/dL Albumin/Globulin Ratio (1.0-2.1) Laboratory Results - last 24 hr 05/20/17 05/20/17 05/20/17 06:23 11:58 16:07 WBC RBC Hgb Hct MCV MCH MCHC RDW Plt Count MPV Neut % (Auto) Lymph % (Auto) Christian % (Auto) Eos % (Auto) Baso % (Auto) Neut # Lymph # Christian # Eos # Baso # Differential Comment Puncture Site pCO2 pO2 HCO3 ABG pH ABG Total CO2 ABG O2 Saturation ABG Base Excess ABG Hemoglobin ABG Carboxyhemoglobin POC ABG HHb (Measured) ABG Methemoglobin Joey Test A-a O2 Difference Respiratory Index Hgb O2 Saturation Vent Mode Mechanical Rate FiO2 Tidal Volume PEEP Crit Value Called To Crit Value Called By Crit Value Read Back Blood Gas Notified Time Sodium Potassium Chloride Carbon Dioxide Anion Gap BUN Creatinine Est GFR ( Amer) Est GFR (Non-Af Amer) POC Glucose (mg/dL) 190 H 191 H Random Glucose Calcium Phosphorus Magnesium Total Bilirubin AST ALT Alkaline Phosphatase Total Protein Albumin Globulin Albumin/Globulin Ratio 05/20/17 05/20/17 05/21/17 19:51 23:46 04:13 WBC RBC Hgb Hct MCV MCH MCHC RDW Plt Count MPV Neut % (Auto) Lymph % (Auto) Christian % (Auto) Eos % (Auto) Baso % (Auto) Neut # Lymph # Christian # Eos # Baso # Differential Comment Puncture Site pCO2 pO2 HCO3 ABG pH ABG Total CO2 ABG O2 Saturation ABG Base Excess ABG Hemoglobin ABG Carboxyhemoglobin POC ABG HHb (Measured) ABG Methemoglobin Joey Test A-a O2 Difference Respiratory Index Hgb O2 Saturation Vent Mode Mechanical Rate FiO2 Tidal Volume PEEP Crit Value Called To Crit Value Called By Crit Value Read Back Blood Gas Notified Time Sodium Potassium Chloride Carbon Dioxide Anion Gap BUN Creatinine Est GFR ( Amer) Est GFR (Non-Af Amer) POC Glucose (mg/dL) 212 H 224 H 260 H Random Glucose Calcium Phosphorus Magnesium Total Bilirubin AST ALT Alkaline Phosphatase Total Protein Albumin Globulin Albumin/Globulin Ratio 05/21/17 05/21/17 05/21/17 05:13 06:05 06:05 WBC 21.3 H RBC 2.03 L Hgb 6.3 L* Hct 20.7 L MCV 101.8 H D MCH 30.8 MCHC 30.3 L RDW 17.5 H Plt Count 56 L D MPV 11.0 Neut % (Auto) 85.7 H Lymph % (Auto) 12.1 L Christian % (Auto) 0.4 Eos % (Auto) 0.8 Baso % (Auto) 1.0 Neut # 18.2 H Lymph # 2.6 Christian # 0.1 Eos # 0.2 Baso # 0.2 Differential Comment Puncture Site Rr pCO2 18 L* pO2 290 H HCO3 4.6 L* ABG pH 6.94 L* ABG Total CO2 4.5 L ABG O2 Saturation 100.5 H ABG Base Excess -26.1 L ABG Hemoglobin 6.3 L ABG Carboxyhemoglobin 1.5 POC ABG HHb (Measured) -0.5 L ABG Methemoglobin 0.9 Joey Test Pos A-a O2 Difference 115.0 Respiratory Index 0.4 Hgb O2 Saturation 98.1 H Vent Mode Prvc Mechanical Rate 15 FiO2 60.0 Tidal Volume 450 PEEP 5 Crit Value Called To Sarmad cox Crit Value Called By Gely sprinkler fitter apprentice Crit Value Read Back Y Blood Gas Notified Time 539 Sodium 134 Potassium 5.0 Chloride 96 L Carbon Dioxide < 5 L* D Anion Gap 43 H BUN 30 H Creatinine 1.9 H Est GFR ( Amer) 32 Est GFR (Non-Af Amer) 26 POC Glucose (mg/dL) Random Glucose 252 H Calcium 5.9 L* Phosphorus 7.4 H Magnesium 1.7 Total Bilirubin 1.8 H AST 593 H D ALT 184 H D Alkaline Phosphatase 318 H Total Protein 3.4 L Albumin 2.0 L Globulin 1.4 L Albumin/Globulin Ratio 1.4 05/21/17 07:33 WBC RBC Hgb Hct MCV MCH MCHC RDW Plt Count MPV Neut % (Auto) Lymph % (Auto) Christian % (Auto) Eos % (Auto) Baso % (Auto) Neut # Lymph # Christian # Eos # Baso # Differential Comment Puncture Site pCO2 pO2 HCO3 ABG pH ABG Total CO2 ABG O2 Saturation ABG Base Excess ABG Hemoglobin ABG Carboxyhemoglobin POC ABG HHb (Measured) ABG Methemoglobin Joey Test A-a O2 Difference Respiratory Index Hgb O2 Saturation Vent Mode Mechanical Rate FiO2 Tidal Volume PEEP Crit Value Called To Crit Value Called By Crit Value Read Back Blood Gas Notified Time Sodium Potassium Chloride Carbon Dioxide Anion Gap BUN Creatinine Est GFR ( Amer) Est GFR (Non-Af Amer) POC Glucose (mg/dL) 264 H Random Glucose Calcium Phosphorus Magnesium Total Bilirubin AST ALT Alkaline Phosphatase Total Protein Albumin Globulin Albumin/Globulin Ratio Fingerstick Blood Sugar Results: 260 Review of Systems - Review of Systems Systems not reviewed;Unavailable: Intubated Critical Care Progress Note - Nutrition Nutrition: Nutrition Category Date Time Status NPO Diet [DIET] Diets 05/19/17 Breakfast Active Assessment/Plan - Assessment and Plan (Free Text) Assessment: 71F with a history of renal failure on HD, congestive heart failure, diabetes, hypertension, peripheral vascular disease, history of left knee below-knee amputation who was brought to the ICU for sepsis. Patient with respiratory distress during dialysis on 05/13 and intubated. Plan: Neuro: Propofol drip Dialudid 0.5 mg IVP Q6H HEENT: brimonidine 0.2% 1 ml OU TID latanoprost 0.02 ml OU timolol 1 drop OU BID Respiratory: 05/13 - Intubated (15/450/5/60) - titrate FiO2 to maintain O2 > 92%) Blood gas: 6.94/18/290/4.6 - 2 amps of sodium bicarb given this AM at 6:15 CXR 05/15: Stable position of endotracheal tube and right PICC line. No change in left lower lobe consolidation and moderate left pleural effusion. Chest CT angio: Filling defects are noted at both upper lobes pulmonary arteries suggestive of pulmonary embolus. Large bilateral effusion. Mild cardiomegaly. [id number] periocardial effusion. [id number] anasarca. Lower lobe atelectasis due to pleural effusion. Cardio: hx of diastolic CHF EF 61% 05/19: ST elevation noted on monitor, EKG and JUAN A ordered * Trop elevated 0.2190 * EKG showing possible anteroseptal infarct, age undetermined Midodrine 10 mg PRN Crestor 10 mg PO HS Timolol Maleate 1 drop OU BID ELINA Levophed HEM: H&H: * 05/19: H&H 6.3/20.6, acute GI bleed over weekend per nursing - transfused 1 unit during dialysis * 05/21: H&H 6.3/20.7, transfuse 1U pRBCs PLT: 05/19: 202 05/20: 90 05/21: 56 Hold Eliquis 5mg PO daily / acute GI bleed Procrit Nephro: BUN/Cr: 30/1.9 Balance +588.[address] Ambrose consulted, help appreciated Pt undergoes hemodialysis Tu//Sat Bicarb drip for metabolic acidosis Ergocalcierol 1 capsule PO Q7D Procrit Fluid, Electrolytes, Diet: Netrophos BID Tube feeds Thiamine Vitamin B complex 05/15: Potassium 2.4 - Potassium Phosphate 15 mmole 255 mls @ 42.5 mls/hr Endo: DM ISS Lantus 10 units SC AMHS Accucheck Glucose Hypoglycemic protocol ID: Sepsis WBC 21.3 (trending down) Lactate * 5.3 on 05/11 and 05/13 * 3.0 on 05/15 * 10.8 05/19 * 9.9 05/20 procal > 200 (05/12) Tmax overnight 101 wound culture showing candidia tissue culture negative blood culture negative x48h Infecious Disease, Dr. Wellington consulted, help appreciated: recommends removing PICC line as source of infection Surgery, Dr. Broussard consulted, help appreciated: Examined AV fistula site due to poor flow. Recommendation is to insert permactah and Right IJ triple lumen however patient was not stable for the OR and RIJ triple lumen dialysis catheter was inserted Fluconazole 200 mg IVPB q24h Nystatin 1 g TOP Q8 Linezolid 600 mg Q12 Cefepime 1 g QD Wound vac for left AKA wound - not likely the source of elevated WBC count. Plans to change wound vac today GI - acute GI bleed with probable ischemic liver damage 05/20: Called Dr. Daily today to see the patient for new bleeding per rectum AST/ALT: * 05/17: 3558/510 - possibly ischemic damage to the liver * 05/18: 2976/552 * 05/20: 1228/258 * 05/21: 593/184 TBili: 1.1 Prophylactic Care GI: Protonix 40 mg PO daily PEG tube feedings SCD to right lower extremity 05/20/17: Eliza had a conversation with the family. Patient is now DNR. <Jan Laws - Last Filed: 05/21/17 18:17> CCU Objective - Vital Signs / Intake & Output Vital Signs (Last 4 hours): Vital Signs Temp Pulse Resp BP Pulse Ox 05/21/17 17:10 97.2 F L 84 26 H 100/26 L 05/21/17 16:40 97.1 F L 85 24 91/20 L 05/21/17 16:25 97.1 F L 84 24 92/20 L 05/21/17 16:10 97.1 F L 82 24 102/40 L 05/21/17 16:06 97.1 F L 83 24 99/17 L 05/21/17 16:00 97.1 F L 83 24 99/17 L 100 05/21/17 15:15 97.1 F L 83 21 103/18 L 05/21/17 15:00 97.1 F L 82 23 106/71 100 Intake and Output (Last 8hrs): Intake & Output 05/21/17 05/21/17 05/21/17 06:59 14:59 22:59 Intake Total 18.8 679.8 508.2 Output Total 125 0 Balance -106.2 679.8 508.2 Weight 127 lb 13.89 oz Intake: IV 0 75 Intake, IV Amount 18.8 404.8 26.2 Right IJ Side Port 0 300 Right PICC 18.8 104.8 26.2 Blood Product 200 382 Apheresis Rbc Cp2d As3 Lr 0 2nd Unit [id number] Apheresis Rbc Cp2d As3 Lr 0 282 2nd Unit [id number] Other 100 Apheresis Rbc Cp2d As3 Lr 100 2nd Unit [id number] Output: Urine 0 0 Urine, Voided 0 0 Stool 125 - Medications Active Medications: Active Medications Generic Name Dose Route Start Last Admin Trade Name Freq PRN Reason Stop Dose Admin Acetaminophen 650 mg 05/13/17 09:40 05/17/17 15:42 Tylenol 650mg/20.3ml Solution Ud PO 650 mg Q6 PRN Administration Fever >100.4 F Albumin Human 12.5 gm 05/13/17 12:00 05/20/17 10:25 Albumin Human 5% (12.5 Gm/250 Ml) IV 12.5 gm MWF PRN Administration hypotension Apixaban 5 mg 05/13/17 10:00 05/15/17 19:20 Eliquis PO 5 mg BID ELINA Administration Brimonidine Tartrate 1 ml 04/12/17 10:00 05/21/17 17:37 Alphagan 0.2% Opht OU 1 drop TID ELINA Administration Collagenase 0 gm 05/12/17 11:15 05/21/17 09:09 Santyl TOP 1 applic DAILY ELINA Administration Epoetin Maxwell 10,000 unit 04/27/17 12:00 05/20/17 10:29 Procrit IV 10,000 unit MWF ELINA Administration Ergocalciferol 1 cap 04/11/17 22:30 05/16/17 22:02 Drisdol 50,000 Intl Units Cap PO 1 cap Q7D ELINA Administration Hydrocortisone Sodium Succinate 50 mg 05/17/17 12:45 05/21/17 12:52 Solu-Cortef IV 50 mg Q8H ELINA Administration Linezolid 600 mg in 300 mls @ 200 mls/hr 05/12/17 22:00 05/21/17 09:10 Zyvox 600mg/300ml D5w IVPB 200 mls/hr Q12 ELINA Administration Propofol 1,000 mg in 100 mls @ 1.762 mls/hr 05/13/17 15:41 05/13/17 20:00 Diprivan IV 10 mcg/kg/min .Q24H PRN 3.524 mls/hr TITRATE PER MD ORDER Titration Protocol 5 MCG/KG/MIN Micafungin Sodium 100 mg/ 100 mls @ 100 mls/hr 05/14/17 20:00 05/20/17 20:10 Sodium Chloride IV 100 mls/hr Q24H ELINA Administration Norepinephrine Bitartrate 8 mg 250 mls @ 7.5 mls/hr 05/16/17 07:13 05/21/17 13:37 / Sodium Chloride IV 7 mcg/min .Q24H PRN 13.12 mls/hr TITRATE PER MD ORDER Administration Protocol 4 MCG/MIN Dopamine HCl/Dextrose 400 mg in 250 mls @ 4.5 mls/hr 05/18/17 11:00 05/18/17 12:14 Dopamine 400mg/250ml D5w IV 0 mcg/kg/min .Q24H PRN 0 mls/hr TITRATE PER MD ORDER Titration Protocol 2 MCG/KG/MIN Gentamicin Sulfate 80 mg/ 102 mls @ 100 mls/hr 05/20/17 09:00 05/20/17 09:00 Sodium Chloride IVPB 100 mls/hr MWF ELINA Administration Insulin Glargine 10 unit 05/14/17 22:00 05/21/17 10:22 Lantus SC Not Given AMHS ELINA Insulin Human Regular 0 unit 05/14/17 21:05 05/21/17 16:05 Novolin R SC 2 unit Q4 ELINA Administration Protocol Latanoprost 0.02 ml 04/12/17 22:00 05/20/17 21:35 Xalatan Opht OU 0.02 ml HS ELINA Administration Midodrine 10 mg 04/27/17 11:04 05/20/17 10:26 Proamatine PO 10 mg ONCE PRN Administration Diastolic blood pressure Nystatin 1 gm 05/11/17 15:51 05/21/17 16:04 Nystop Topical Powder TOP 1 applic Q8H ELINA Administration Pantoprazole Sodium 40 mg 05/17/17 10:00 05/21/17 09:09 Protonix Inj IVP 40 mg DAILY ELINA Administration Potassium Phos/Sodium Phos 1 pkt 05/13/17 09:00 05/21/17 17:37 Neutra-Phos PO 1 pkt BIDPC ELINA Administration Rosuvastatin Calcium 10 mg 04/12/17 22:00 05/20/17 22:00 Crestor PO Not Given HS ELINA Thiamine HCl 100 mg 04/11/17 22:30 05/21/17 13:44 Vitamin B1 Inj IV 100 mg Q8H ELINA Administration Timolol Maleate 1 drop 04/12/17 10:00 05/21/17 17:36 Timoptic 0.5% Ophth Soln OU 1 drop BID ELINA Administration Vitamin B Complex/Vit C/Folic Acid 1 tab 04/12/17 08:00 05/21/17 07:57 Nephro-Alonzo PO 1 tab 0800 ELINA Administration - Patient Studies Lab Studies: Lab Studies 05/21/17 05/21/17 05/21/17 Range/Units 16:01 11:56 07:33 WBC (4.8-10.8) K/uL RBC (3.80-5.20) Mil/uL Hgb (11.0-16.0) g/dL Hct (34.0-47.0) % MCV (81.0-99.0) fL MCH (27.0-31.0) pg MCHC (33.0-37.0) g/dL RDW (11.5-14.5) % Plt Count (130-400) K/uL MPV (7.2-11.7) fL Neut % (Auto) (50.0-75.0) % Lymph % (Auto) (20.0-40.0) % Christian % (Auto) (0.0-10.0) % Eos % (Auto) (0.0-4.0) % Baso % (Auto) (0.0-2.0) % Neut # (1.8-7.0) K/uL Lymph # (1.0-4.3) K/uL Christian # (0.0-0.8) K/uL Eos # (0.0-0.7) K/uL Baso # (0.0-0.2) K/uL Puncture Site pCO2 (35-45) mm/Hg pO2 (80-100) mm/Hg HCO3 (21-28) mmol/L ABG pH (7.35-7.45) ABG Total CO2 (22-28) mmol/L ABG O2 Saturation (95-98) % ABG Base Excess (-2.0-3.0) mmol/L ABG Hemoglobin (11.7-17.4) g/dL ABG Carboxyhemoglobin (0.5-1.5) % POC ABG HHb (Measured) (0.0-5.0) % ABG Methemoglobin (0.0-3.0) % Joey Test A-a O2 Difference mm/Hg Respiratory Index Hgb O2 Saturation (95.0-98.0) % Vent Mode Mechanical Rate FiO2 % Tidal Volume PEEP Crit Value Called To Crit Value Called By Crit Value Read Back Blood Gas Notified Time Sodium (132-148) mmol/L Potassium (3.6-5.2) mmol/L Chloride (98-107) mmol/L Carbon Dioxide (22-30) mmol/L Anion Gap (10-20) BUN (7-17) mg/dL Creatinine (0.7-1.2) mg/dL Est GFR ( Amer) Est GFR (Non-Af Amer) POC Glucose (mg/dL) 168 H 257 H 264 H (65-110) mg/dL Random Glucose (65-105) mg/dL Calcium (8.6-10.4) mg/dl Phosphorus (2.5-4.5) mg/dL Magnesium (1.6-2.3) mg/dL Total Bilirubin (0.2-1.3) mg/dL AST (14-36) U/L ALT (9-52) U/L Alkaline Phosphatase (38-126) U/L Total Protein (6.3-8.3) g/dL Albumin (3.5-5.0) g/dL Globulin (2.2-3.9) gm/dL Albumin/Globulin Ratio (1.0-2.1) Blood Type Antibody Screen 05/21/17 05/21/17 05/21/17 Range/Units 06:05 06:05 05:13 WBC 21.3 H (4.8-10.8) K/uL RBC 2.03 L (3.80-5.20) Mil/uL Hgb 6.3 L* (11.0-16.0) g/dL Hct 20.7 L (34.0-47.0) % MCV 101.8 H D (81.0-99.0) fL MCH 30.8 (27.0-31.0) pg MCHC 30.3 L (33.0-37.0) g/dL RDW 17.5 H (11.5-14.5) % Plt Count 56 L D (130-400) K/uL MPV 11.0 (7.2-11.7) fL Neut % (Auto) 85.7 H (50.0-75.0) % Lymph % (Auto) 12.1 L (20.0-40.0) % Christian % (Auto) 0.4 (0.0-10.0) % Eos % (Auto) 0.8 (0.0-4.0) % Baso % (Auto) 1.0 (0.0-2.0) % Neut # 18.2 H (1.8-7.0) K/uL Lymph # 2.6 (1.0-4.3) K/uL Christian # 0.1 (0.0-0.8) K/uL Eos # 0.2 (0.0-0.7) K/uL Baso # 0.2 (0.0-0.2) K/uL Puncture Site Rr pCO2 18 L* (35-45) mm/Hg pO2 290 H (80-100) mm/Hg HCO3 4.6 L* (21-28) mmol/L ABG pH 6.94 L* (7.35-7.45) ABG Total CO2 4.5 L (22-28) mmol/L ABG O2 Saturation 100.5 H (95-98) % ABG Base Excess -26.1 L (-2.0-3.0) mmol/L ABG Hemoglobin 6.3 L (11.7-17.4) g/dL ABG Carboxyhemoglobin 1.5 (0.5-1.5) % POC ABG HHb (Measured) -0.5 L (0.0-5.0) % ABG Methemoglobin 0.9 (0.0-3.0) % Joey Test Pos A-a O2 Difference 115.0 mm/Hg Respiratory Index 0.4 Hgb O2 Saturation 98.1 H (95.0-98.0) % Vent Mode Prvc Mechanical Rate 15 FiO2 60.0 % Tidal Volume 450 PEEP 5 Crit Value Called To Sarmad rn Crit Value Called By Gely sprinkler fitter apprentice Crit Value Read Back Y Blood Gas Notified Time 539 Sodium 134 (132-148) mmol/L Potassium 5.0 (3.6-5.2) mmol/L Chloride 96 L (98-107) mmol/L Carbon Dioxide < 5 L* D (22-30) mmol/L Anion Gap 43 H (10-20) BUN 30 H (7-17) mg/dL Creatinine 1.9 H (0.7-1.2) mg/dL Est GFR ( Amer) 32 Est GFR (Non-Af Amer) 26 POC Glucose (mg/dL) (65-110) mg/dL Random Glucose 252 H (65-105) mg/dL Calcium 5.9 L* (8.6-10.4) mg/dl Phosphorus 7.4 H (2.5-4.5) mg/dL Magnesium 1.7 (1.6-2.3) mg/dL Total Bilirubin 1.8 H (0.2-1.3) mg/dL AST 593 H D (14-36) U/L ALT 184 H D (9-52) U/L Alkaline Phosphatase 318 H (38-126) U/L Total Protein 3.4 L (6.3-8.3) g/dL Albumin 2.0 L (3.5-5.0) g/dL Globulin 1.4 L (2.2-3.9) gm/dL Albumin/Globulin Ratio 1.4 (1.0-2.1) Blood Type Antibody Screen 05/21/17 05/20/17 05/20/17 Range/Units 04:13 23:46 19:51 WBC (4.8-10.8) K/uL RBC (3.80-5.20) Mil/uL Hgb (11.0-16.0) g/dL Hct (34.0-47.0) % MCV (81.0-99.0) fL MCH (27.0-31.0) pg MCHC (33.0-37.0) g/dL RDW (11.5-14.5) % Plt Count (130-400) K/uL MPV (7.2-11.7) fL Neut % (Auto) (50.0-75.0) % Lymph % (Auto) (20.0-40.0) % Christian % (Auto) (0.0-10.0) % Eos % (Auto) (0.0-4.0) % Baso % (Auto) (0.0-2.0) % Neut # (1.8-7.0) K/uL Lymph # (1.0-4.3) K/uL Christian # (0.0-0.8) K/uL Eos # (0.0-0.7) K/uL Baso # (0.0-0.2) K/uL Puncture Site pCO2 (35-45) mm/Hg pO2 (80-100) mm/Hg HCO3 (21-28) mmol/L ABG pH (7.35-7.45) ABG Total CO2 (22-28) mmol/L ABG O2 Saturation (95-98) % ABG Base Excess (-2.0-3.0) mmol/L ABG Hemoglobin (11.7-17.4) g/dL ABG Carboxyhemoglobin (0.5-1.5) % POC ABG HHb (Measured) (0.0-5.0) % ABG Methemoglobin (0.0-3.0) % Joey Test A-a O2 Difference mm/Hg Respiratory Index Hgb O2 Saturation (95.0-98.0) % Vent Mode Mechanical Rate FiO2 % Tidal Volume PEEP Crit Value Called To Crit Value Called By Crit Value Read Back Blood Gas Notified Time Sodium (132-148) mmol/L Potassium (3.6-5.2) mmol/L Chloride (98-107) mmol/L Carbon Dioxide (22-30) mmol/L Anion Gap (10-20) BUN (7-17) mg/dL Creatinine (0.7-1.2) mg/dL Est GFR ( Amer) Est GFR (Non-Af Amer) POC Glucose (mg/dL) 260 H 224 H 212 H (65-110) mg/dL Random Glucose (65-105) mg/dL Calcium (8.6-10.4) mg/dl Phosphorus (2.5-4.5) mg/dL Magnesium (1.6-2.3) mg/dL Total Bilirubin (0.2-1.3) mg/dL AST (14-36) U/L ALT (9-52) U/L Alkaline Phosphatase (38-126) U/L Total Protein (6.3-8.3) g/dL Albumin (3.5-5.0) g/dL Globulin (2.2-3.9) gm/dL Albumin/Globulin Ratio (1.0-2.1) Blood Type Antibody Screen 05/19/17 Range/Units 07:20 WBC (4.8-10.8) K/uL RBC (3.80-5.20) Mil/uL Hgb (11.0-16.0) g/dL Hct (34.0-47.0) % MCV (81.0-99.0) fL MCH (27.0-31.0) pg MCHC (33.0-37.0) g/dL RDW (11.5-14.5) % Plt Count (130-400) K/uL MPV (7.2-11.7) fL Neut % (Auto) (50.0-75.0) % Lymph % (Auto) (20.0-40.0) % Christian % (Auto) (0.0-10.0) % Eos % (Auto) (0.0-4.0) % Baso % (Auto) (0.0-2.0) % Neut # (1.8-7.0) K/uL Lymph # (1.0-4.3) K/uL Christian # (0.0-0.8) K/uL Eos # (0.0-0.7) K/uL Baso # (0.0-0.2) K/uL Puncture Site pCO2 (35-45) mm/Hg pO2 (80-100) mm/Hg HCO3 (21-28) mmol/L ABG pH (7.35-7.45) ABG Total CO2 (22-28) mmol/L ABG O2 Saturation (95-98) % ABG Base Excess (-2.0-3.0) mmol/L ABG Hemoglobin (11.7-17.4) g/dL ABG Carboxyhemoglobin (0.5-1.5) % POC ABG HHb (Measured) (0.0-5.0) % ABG Methemoglobin (0.0-3.0) % Joey Test A-a O2 Difference mm/Hg Respiratory Index Hgb O2 Saturation (95.0-98.0) % Vent Mode Mechanical Rate FiO2 % Tidal Volume PEEP Crit Value Called To Crit Value Called By Crit Value Read Back Blood Gas Notified Time Sodium (132-148) mmol/L Potassium (3.6-5.2) mmol/L Chloride (98-107) mmol/L Carbon Dioxide (22-30) mmol/L Anion Gap (10-20) BUN (7-17) mg/dL Creatinine (0.7-1.2) mg/dL Est GFR ( Amer) Est GFR (Non-Af Amer) POC Glucose (mg/dL) (65-110) mg/dL Random Glucose (65-105) mg/dL Calcium (8.6-10.4) mg/dl Phosphorus (2.5-4.5) mg/dL Magnesium (1.6-2.3) mg/dL Total Bilirubin (0.2-1.3) mg/dL AST (14-36) U/L ALT (9-52) U/L Alkaline Phosphatase (38-126) U/L Total Protein (6.3-8.3) g/dL Albumin (3.5-5.0) g/dL Globulin (2.2-3.9) gm/dL Albumin/Globulin Ratio (1.0-2.1) Blood Type B POSITIVE Antibody Screen Negative Laboratory Results - last 24 hr 05/19/17 05/20/17 05/20/17 07:20 19:51 23:46 WBC RBC Hgb Hct MCV MCH MCHC RDW Plt Count MPV Neut % (Auto) Lymph % (Auto) Christian % (Auto) Eos % (Auto) Baso % (Auto) Neut # Lymph # Christian # Eos # Baso # Puncture Site pCO2 pO2 HCO3 ABG pH ABG Total CO2 ABG O2 Saturation ABG Base Excess ABG Hemoglobin ABG Carboxyhemoglobin POC ABG HHb (Measured) ABG Methemoglobin Joey Test A-a O2 Difference Respiratory Index Hgb O2 Saturation Vent Mode Mechanical Rate FiO2 Tidal Volume PEEP Crit Value Called To Crit Value Called By Crit Value Read Back Blood Gas Notified Time Sodium Potassium Chloride Carbon Dioxide Anion Gap BUN Creatinine Est GFR ( Amer) Est GFR (Non-Af Amer) POC Glucose (mg/dL) 212 H 224 H Random Glucose Calcium Phosphorus Magnesium Total Bilirubin AST ALT Alkaline Phosphatase Total Protein Albumin Globulin Albumin/Globulin Ratio Blood Type B POSITIVE Antibody Screen Negative 05/21/17 05/21/17 05/21/17 04:13 05:13 06:05 WBC 21.3 H RBC 2.03 L Hgb 6.3 L* Hct 20.7 L MCV 101.8 H D MCH 30.8 MCHC 30.3 L RDW 17.5 H Plt Count 56 L D MPV 11.0 Neut % (Auto) 85.7 H Lymph % (Auto) 12.1 L Christian % (Auto) 0.4 Eos % (Auto) 0.8 Baso % (Auto) 1.0 Neut # 18.2 H Lymph # 2.6 Christian # 0.1 Eos # 0.2 Baso # 0.2 Puncture Site Rr pCO2 18 L* pO2 290 H HCO3 4.6 L* ABG pH 6.94 L* ABG Total CO2 4.5 L ABG O2 Saturation 100.5 H ABG Base Excess -26.1 L ABG Hemoglobin 6.3 L ABG Carboxyhemoglobin 1.5 POC ABG HHb (Measured) -0.5 L ABG Methemoglobin 0.9 Joey Test Pos A-a O2 Difference 115.0 Respiratory Index 0.4 Hgb O2 Saturation 98.1 H Vent Mode Prvc Mechanical Rate 15 FiO2 60.0 Tidal Volume 450 PEEP 5 Crit Value Called To Sarmad rn Crit Value Called By Gely sprinkler fitter apprentice Crit Value Read Back Y Blood Gas Notified Time 539 Sodium Potassium Chloride Carbon Dioxide Anion Gap BUN Creatinine Est GFR ( Amer) Est GFR (Non-Af Amer) POC Glucose (mg/dL) 260 H Random Glucose Calcium Phosphorus Magnesium Total Bilirubin AST ALT Alkaline Phosphatase Total Protein Albumin Globulin Albumin/Globulin Ratio Blood Type Antibody Screen 05/21/17 05/21/17 05/21/17 06:05 07:33 11:56 WBC RBC Hgb Hct MCV MCH MCHC RDW Plt Count MPV Neut % (Auto) Lymph % (Auto) Christian % (Auto) Eos % (Auto) Baso % (Auto) Neut # Lymph # Christian # Eos # Baso # Puncture Site pCO2 pO2 HCO3 ABG pH ABG Total CO2 ABG O2 Saturation ABG Base Excess ABG Hemoglobin ABG Carboxyhemoglobin POC ABG HHb (Measured) ABG Methemoglobin Joey Test A-a O2 Difference Respiratory Index Hgb O2 Saturation Vent Mode Mechanical Rate FiO2 Tidal Volume PEEP Crit Value Called To Crit Value Called By Crit Value Read Back Blood Gas Notified Time Sodium 134 Potassium 5.0 Chloride 96 L Carbon Dioxide < 5 L* D Anion Gap 43 H BUN 30 H Creatinine 1.9 H Est GFR ( Amer) 32 Est GFR (Non-Af Amer) 26 POC Glucose (mg/dL) 264 H 257 H Random Glucose 252 H Calcium 5.9 L* Phosphorus 7.4 H Magnesium 1.7 Total Bilirubin 1.8 H AST 593 H D ALT 184 H D Alkaline Phosphatase 318 H Total Protein 3.4 L Albumin 2.0 L Globulin 1.4 L Albumin/Globulin Ratio 1.4 Blood Type Antibody Screen 05/21/17 16:01 WBC RBC Hgb Hct MCV MCH MCHC RDW Plt Count MPV Neut % (Auto) Lymph % (Auto) Christian % (Auto) Eos % (Auto) Baso % (Auto) Neut # Lymph # Christian # Eos # Baso # Puncture Site pCO2 pO2 HCO3 ABG pH ABG Total CO2 ABG O2 Saturation ABG Base Excess ABG Hemoglobin ABG Carboxyhemoglobin POC ABG HHb (Measured) ABG Methemoglobin Joey Test A-a O2 Difference Respiratory Index Hgb O2 Saturation Vent Mode Mechanical Rate FiO2 Tidal Volume PEEP Crit Value Called To Crit Value Called By Crit Value Read Back Blood Gas Notified Time Sodium Potassium Chloride Carbon Dioxide Anion Gap BUN Creatinine Est GFR ( Amer) Est GFR (Non-Af Amer) POC Glucose (mg/dL) 168 H Random Glucose Calcium Phosphorus Magnesium Total Bilirubin AST ALT Alkaline Phosphatase Total Protein Albumin Globulin Albumin/Globulin Ratio Blood Type Antibody Screen Critical Care Progress Note - Nutrition Nutrition: Nutrition Category Date Time Status NPO Diet [DIET] Diets 05/19/17 Breakfast Active Attending/Attestation - Attestation I have personally seen and examined this patient.: Yes I have fully participated in the care of the patient.: Yes I have reviewed all pertinent clinical information: Yes Notes (Text): 05/21/17 18:17 Today: , May 21, 2017 The Patient was seen and examined at the bedside, Medical records reviewed, and management issues were discussed and formulated with the house staff. I have reviewed all the relevant clinical, laboratory, hemodynamic, radiographic data and medications Events reviewed Pain issues, skin care, head of the bed elevation, glycemic control were addressed. Agree with above resident's assessment and treatment plans of care as transcribed in Dr. Morel note.
[2017-05-21] MEDS: Potassium & Sodium Phosphate PO SCH ×2 (08:02→17:37)
[2017-05-21] MEDS: Nystatin 100,000 Units/gm Topical Pow(15 gm) TOP SCH ×3 (08:03→16:04)
--- NOTE | 2017-05-21 08:32 | RAD ---
PROCEDURE: CHEST RADIOGRAPH, 1 VIEW HISTORY: vent COMPARISON: 05/20/2017 FINDINGS: LUNGS: No definite infiltrate. Cannot exclude infiltrate at left base due to superimposed pleural effusion. PLEURA: Small left pleural effusion unchanged in extent. No pneumothorax. No right pleural effusion. CARDIOVASCULAR: Normal heart size. Endotracheal tube and right PICC catheter unchanged. Tunneled right central venous dialysis catheter unchanged. OSSEOUS STRUCTURES: No significant abnormalities. VISUALIZED UPPER ABDOMEN: Normal. OTHER FINDINGS: None. IMPRESSION: Small left pleural effusion. No definite infiltrate. Lines and tubes unchanged.
[2017-05-21] MEDS: Collagenase 250 Units/gm Ointment(30 gm) TOP SCH (09:09)
[2017-05-21] MEDS: Brimonidine 0.2% Opth Sol (5ml) OU SCH ×3 (09:09→17:37)
[2017-05-21] MEDS: Linezolid 600 mg in D5W 300 ml 600 MG/300 ML BAG IVPB SCH ×2 (09:10→21:00)
[2017-05-21 09:54] VITALS: O2SAT 100
[2017-05-21] MEDS: (Lantus) Insulin Glargine, Recombinant SC SCH ×2 (10:22→22:00)
--- NOTE | 2017-05-21 12:52 | CARD ---
APPROVED REPORT EKG Measurement Heart [id number] <Conclusion> Normal sinus rhythm Anteroseptal infarct, age undetermined ST & T wave abnormality, consider lateral ischemia Abnormal ECG
[2017-05-21] MEDS: Norepinephrine 8 MG in Sodium Chloride 0.9% 242 ML IV PRN (13:37)
--- NOTE | 2017-05-21 15:42 | CP.PCM.PN ---
Subjective - Date & Time of Evaluation Date of Evaluation: 05/21/17 Time of Evaluation: 09:20 - Subjective Subjective: patient seen and examined. Remains intubated on ventilatory support Off pressors Status post dialysis yesterday Patient DNR/DNI On IV antibiotics Objective - Vital Signs/Intake and Output Vital Signs (last 24 hours): Temp Pulse Resp BP Pulse Ox 97.1 F L 83 21 103/18 L 100 05/21/17 15:15 05/21/17 15:15 05/21/17 15:15 05/21/17 15:15 05/21/17 15:00 Intake and Output: 05/21/17 05/21/17 06:59 18:59 Intake Total 418.8 1174.9 Output Total 300 0 Balance 118.8 1174.9 - Medications Medications: Current Medications Acetaminophen (Tylenol 650mg/20.3ml Solution Ud) 650 mg PO Q6 PRN PRN Reason: Fever >100.4 F Last Admin: 05/17/17 15:42 Dose: 650 mg Albumin Human (Albumin Human 5% (12.5 Gm/250 Ml)) 12.5 gm IV MWF PRN PRN Reason: hypotension Last Admin: 05/20/17 10:25 Dose: 12.5 gm Apixaban (Eliquis) 5 mg PO BID [facility] TO [facility] Last Admin: 05/15/17 19:20 Dose: 5 mg Brimonidine Tartrate (Alphagan 0.2% Opht) 1 ml OU TID [facility] Last Admin: 05/21/17 13:43 Dose: 1 applic Collagenase (Santyl) 0 gm TOP DAILY [facility] Last Admin: 05/21/17 09:09 Dose: 1 applic Epoetin Maxwell (Procrit) 10,000 unit IV MWF [facility] Last Admin: 05/20/17 10:29 Dose: 10,000 unit Ergocalciferol (Drisdol 50,000 Intl Units Cap) 1 cap PO Q7D [facility] Last Admin: 05/16/17 22:02 Dose: 1 cap Hydrocortisone Sodium Succinate (Solu-Cortef) 50 mg IV Q8H [facility] Last Admin: 05/21/17 12:52 Dose: 50 mg Linezolid (Zyvox 600mg/300ml D5w) 600 mg in 300 mls @ 200 mls/hr IVPB Q12 [facility] Last Admin: 05/21/17 09:10 Dose: 200 mls/hr Propofol (Diprivan) 1,000 mg in 100 mls @ 1.762 mls/hr IV .Q24H PRN; Protocol; 5 MCG/KG/MIN PRN Reason: TITRATE PER MD ORDER Last Titration: 05/13/17 20:00 Dose: 10 mcg/kg/min, 3.524 mls/hr Micafungin Sodium 100 mg/ (Sodium Chloride) 100 mls @ 100 mls/hr IV Q24H ELINA Last Admin: 05/20/17 20:10 Dose: 100 mls/hr Norepinephrine Bitartrate 8 mg (/ Sodium Chloride) 250 mls @ 7.5 mls/hr IV .Q24H PRN; Protocol; 4 MCG/MIN PRN Reason: TITRATE PER MD ORDER Last Admin: 05/21/17 13:37 Dose: 7 mcg/min, 13.12 mls/hr Dopamine HCl/Dextrose (Dopamine 400mg/250ml D5w) 400 mg in 250 mls @ 4.5 mls/ hr IV .Q24H PRN; Protocol; 2 MCG/KG/MIN PRN Reason: TITRATE PER MD ORDER Last Titration: 05/18/17 12:14 Dose: 0 mcg/kg/min, 0 mls/hr Gentamicin Sulfate 80 mg/ (Sodium Chloride) 102 mls @ 100 mls/hr IVPB MWF [facility] Last Admin: 05/20/17 09:00 Dose: 100 mls/hr Insulin Glargine (Lantus) 10 unit SC AMHS [facility] Last Admin: 05/21/17 10:22 Dose: Not Given Insulin Human Regular (Novolin R) 0 unit SC Q4 ELINA PRN Reason: Protocol Last Admin: 05/21/17 12:11 Dose: 4 unit Latanoprost (Xalatan Opht) 0.02 ml OU HS [facility] Last Admin: 05/20/17 21:35 Dose: 0.02 ml Midodrine (Proamatine) 10 mg PO ONCE PRN PRN Reason: Diastolic blood pressure Last Admin: 05/20/17 10:26 Dose: 10 mg Nystatin (Nystop Topical Powder) 1 gm TOP Q8H [facility] Last Admin: 05/21/17 08:03 Dose: 1 applic Pantoprazole Sodium (Protonix Inj) 40 mg IVP DAILY [facility] Last Admin: 05/21/17 09:09 Dose: 40 mg Potassium Phos/Sodium Phos (Neutra-Phos) 1 pkt PO BIDPC [facility] Last Admin: 05/21/17 08:02 Dose: 1 pkt Rosuvastatin Calcium (Crestor) 10 mg PO HS [facility] Last Admin: 05/20/17 22:00 Dose: Not Given Thiamine HCl (Vitamin B1 Inj) 100 mg IV Q8H [facility] Last Admin: 05/21/17 13:44 Dose: 100 mg Timolol Maleate (Timoptic 0.5% [facility]) 1 drop OU BID [facility] Last Admin: 05/21/17 09:09 Dose: 1 drop Vitamin B Complex/Vit C/Folic Acid (Nephro-Alonzo) 1 tab PO 0800 [facility] Last Admin: 05/21/17 07:57 Dose: 1 tab - Labs Labs: 05/21/17 06:05 05/21/17 06:05 PT 18.1 SECONDS (9.7-12.2) H 05/20/17 06:23 INR 1.6 05/20/17 06:23 APTT 37 SECONDS (21-34) H D 05/18/17 09:15 Assessment and Plan (1) Pleural effusion Status: Acute
--- NOTE | 2017-05-21 17:30 | CP.PCM.PN ---
Subjective - Date & Time of Evaluation Date of Evaluation: 05/21/17 Time of Evaluation: 09:00 - Subjective Subjective: EVENTS NOTED RX RENEWED Objective - Vital Signs/Intake and Output Vital Signs (last 24 hours): Temp Pulse Resp BP Pulse Ox 97.2 F L 84 26 H 100/26 L 100 05/21/17 17:10 05/21/17 17:10 05/21/17 17:10 05/21/17 17:10 05/21/17 16:00 Intake and Output: 05/21/17 05/21/17 06:59 18:59 Intake Total 418.8 1188.0 Output Total 300 0 Balance 118.8 1188.0 - Medications Medications: Current Medications Acetaminophen (Tylenol 650mg/20.3ml Solution Ud) 650 mg PO Q6 PRN PRN Reason: Fever >100.4 F Last Admin: 05/17/17 15:42 Dose: 650 mg Albumin Human (Albumin Human 5% (12.5 Gm/250 Ml)) 12.5 gm IV MWF PRN PRN Reason: hypotension Last Admin: 05/20/17 10:25 Dose: 12.5 gm Apixaban (Eliquis) 5 mg PO BID [facility] Last Admin: 05/15/17 19:20 Dose: 5 mg Brimonidine Tartrate (Alphagan 0.2% Opht) 1 ml OU TID [facility] Last Admin: 05/21/17 13:43 Dose: 1 applic Collagenase (Santyl) 0 gm TOP DAILY [facility] Last Admin: 05/21/17 09:09 Dose: 1 applic Epoetin Maxwell (Procrit) 10,000 unit IV MWF [facility] Last Admin: 05/20/17 10:29 Dose: 10,000 unit Ergocalciferol (Drisdol 50,000 Intl Units Cap) 1 cap PO Q7D [facility] Last Admin: 05/16/17 22:02 Dose: 1 cap Hydrocortisone Sodium Succinate (Solu-Cortef) 50 mg IV Q8H [facility] Last Admin: 05/21/17 12:52 Dose: 50 mg Linezolid (Zyvox 600mg/300ml D5w) 600 mg in 300 mls @ 200 mls/hr IVPB Q12 [facility] Last Admin: 05/21/17 09:10 Dose: 200 mls/hr Propofol (Diprivan) 1,000 mg in 100 mls @ 1.762 mls/hr IV .Q24H PRN; Protocol; 5 MCG/KG/MIN PRN Reason: TITRATE PER MD ORDER Last Titration: 05/13/17 20:00 Dose: 10 mcg/kg/min, 3.524 mls/hr Micafungin Sodium 100 mg/ (Sodium Chloride) 100 mls @ 100 mls/hr IV Q24H [facility] Last Admin: 05/20/17 20:10 Dose: 100 mls/hr Norepinephrine Bitartrate 8 mg (/ Sodium Chloride) 250 mls @ 7.5 mls/hr IV .Q24H PRN; Protocol; 4 MCG/MIN PRN Reason: TITRATE PER MD ORDER Last Admin: 05/21/17 13:37 Dose: 7 mcg/min, 13.12 mls/hr Dopamine HCl/Dextrose (Dopamine 400mg/250ml D5w) 400 mg in 250 mls @ 4.5 mls/ hr IV .Q24H PRN; Protocol; 2 MCG/KG/MIN PRN Reason: TITRATE PER MD ORDER Last Titration: 05/18/17 12:14 Dose: 0 mcg/kg/min, 0 mls/hr Gentamicin Sulfate 80 mg/ (Sodium Chloride) 102 mls @ 100 mls/hr IVPB MWF [facility] Last Admin: 05/20/17 09:00 Dose: 100 mls/hr Insulin Glargine (Lantus) 10 unit SC AMHS [facility] Last Admin: 05/21/17 10:22 Dose: Not Given Insulin Human Regular (Novolin R) 0 unit SC Q4 ELINA PRN Reason: Protocol Last Admin: 05/21/17 16:05 Dose: 2 unit Latanoprost (Xalatan Opht) 0.02 ml OU HS [facility] Last Admin: 05/20/17 21:35 Dose: 0.02 ml Midodrine (Proamatine) 10 mg PO ONCE PRN PRN Reason: Diastolic blood pressure Last Admin: 05/20/17 10:26 Dose: 10 mg Nystatin (Nystop Topical Powder) 1 gm TOP Q8H [facility] Last Admin: 05/21/17 16:04 Dose: 1 applic Pantoprazole Sodium (Protonix Inj) 40 mg IVP DAILY [facility] Last Admin: 05/21/17 09:09 Dose: 40 mg Potassium Phos/Sodium Phos (Neutra-Phos) 1 pkt PO BIDPC [facility] Last Admin: 05/21/17 08:02 Dose: 1 pkt Rosuvastatin Calcium (Crestor) 10 mg PO HS [facility] Last Admin: 05/20/17 22:00 Dose: Not Given Thiamine HCl (Vitamin B1 Inj) 100 mg IV Q8H [facility] Last Admin: 05/21/17 13:44 Dose: 100 mg Timolol Maleate (Timoptic 0.5% Oph Soln) 1 drop OU BID [facility] Last Admin: 05/21/17 09:09 Dose: 1 drop Vitamin B Complex/Vit C/Folic Acid (Nephro-Alonzo) 1 tab PO 0800 [facility] Last Admin: 05/21/17 07:57 Dose: 1 tab - Labs Labs: 05/21/17 06:05 05/21/17 06:05 PT 18.1 SECONDS (9.7-12.2) H 05/20/17 06:23 INR 1.6 05/20/17 06:23 APTT 37 SECONDS (21-34) H D 05/18/17 09:15 Assessment and Plan (1) Elevated WBC count Status: Acute (2) S/P BKA (below knee amputation) Status: Acute (3) Sacral decubitus ulcer, stage III Status: Acute (4) Sepsis Status: Acute
--- NOTE | 2017-05-21 18:26 | CP.PCM.PN ---
Subjective - Date & Time of Evaluation Date of Evaluation: 05/21/17 Time of Evaluation: 15:00 - Subjective Subjective: SEEN ON RENAL F/U SEEN ON HD IN SEPSIS .. SEPTIC SHOCK SEVERE MET ACIDOSIS PH 6.9 LOW BP ON PRESSORS Objective - Vital Signs/Intake and Output Vital Signs (last 24 hours): Temp Pulse Resp BP Pulse Ox 97.2 F L 84 26 H 100/26 L 100 05/21/17 17:10 05/21/17 17:10 05/21/17 17:10 05/21/17 17:10 05/21/17 16:00 Intake and Output: 05/21/17 05/21/17 06:59 18:59 Intake Total 418.8 1188.0 Output Total 300 0 Balance 118.8 1188.0 - Medications Medications: Current Medications Acetaminophen (Tylenol 650mg/20.3ml Solution Ud) 650 mg PO Q6 PRN PRN Reason: Fever >100.4 F Last Admin: 05/17/17 15:42 Dose: 650 mg Albumin Human (Albumin Human 5% (12.5 Gm/250 Ml)) 12.5 gm IV MWF PRN PRN Reason: hypotension Last Admin: 05/20/17 10:25 Dose: 12.5 gm Apixaban (Eliquis) 5 mg PO BID [facility] Last Admin: 05/15/17 19:20 Dose: 5 mg Brimonidine Tartrate (Alphagan 0.2% Opht) 1 ml OU TID [facility] Last Admin: 05/21/17 17:37 Dose: 1 drop Collagenase (Santyl) 0 gm TOP DAILY [facility] Last Admin: 05/21/17 09:09 Dose: 1 applic Epoetin Maxwell (Procrit) 10,000 unit IV MWF [facility] Last Admin: 05/20/17 10:29 Dose: 10,000 unit Ergocalciferol (Drisdol 50,000 Intl Units Cap) 1 cap PO Q7D [facility] Last Admin: 05/16/17 22:02 Dose: 1 cap Hydrocortisone Sodium Succinate (Solu-Cortef) 50 mg IV Q8H [facility] Last Admin: 05/21/17 12:52 Dose: 50 mg Linezolid (Zyvox 600mg/300ml D5w) 600 mg in 300 mls @ 200 mls/hr IVPB Q12 [facility] Last Admin: 05/21/17 09:10 Dose: 200 mls/hr Propofol (Diprivan) 1,000 mg in 100 mls @ 1.762 mls/hr IV .Q24H PRN; Protocol; 5 MCG/KG/MIN PRN Reason: TITRATE PER MD ORDER Last Titration: 05/13/17 20:00 Dose: 10 mcg/kg/min, 3.524 mls/hr Micafungin Sodium 100 mg/ (Sodium Chloride) 100 mls @ 100 mls/hr IV Q24H [facility] Last Admin: 05/20/17 20:10 Dose: 100 mls/hr Norepinephrine Bitartrate 8 mg (/ Sodium Chloride) 250 mls @ 7.5 mls/hr IV .Q24H PRN; Protocol; 4 MCG/MIN PRN Reason: TITRATE PER MD ORDER Last Admin: 05/21/17 13:37 Dose: 7 mcg/min, 13.12 mls/hr Dopamine HCl/Dextrose (Dopamine 400mg/250ml D5w) 400 mg in 250 mls @ 4.5 mls/ hr IV .Q24H PRN; Protocol; 2 MCG/KG/MIN PRN Reason: TITRATE PER MD ORDER Last Titration: 05/18/17 12:14 Dose: 0 mcg/kg/min, 0 mls/hr Gentamicin Sulfate 80 mg/ (Sodium Chloride) 102 mls @ 100 mls/hr IVPB MWF [facility] Last Admin: 05/20/17 09:00 Dose: 100 mls/hr Insulin Glargine (Lantus) 10 unit SC AMHS [facility] Last Admin: 05/21/17 10:22 Dose: Not Given Insulin Human Regular (Novolin R) 0 unit SC Q4 [facility] PRN Reason: Protocol Last Admin: 05/21/17 16:05 Dose: 2 unit Latanoprost (Xalatan Opht) 0.02 ml OU HS [facility] Last Admin: 05/20/17 21:35 Dose: 0.02 ml Midodrine (Proamatine) 10 mg PO ONCE PRN PRN Reason: Diastolic blood pressure Last Admin: 05/20/17 10:26 Dose: 10 mg Nystatin (Nystop Topical Powder) 1 gm TOP Q8H [facility] Last Admin: 05/21/17 16:04 Dose: 1 applic Pantoprazole Sodium (Protonix Inj) 40 mg IVP DAILY [facility] Last Admin: 05/21/17 09:09 Dose: 40 mg Potassium Phos/Sodium Phos (Neutra-Phos) 1 pkt PO BIDPC [facility] Last Admin: 05/21/17 17:37 Dose: 1 pkt Rosuvastatin Calcium (Crestor) 10 mg PO HS [facility] Last Admin: 05/20/17 22:00 Dose: Not Given Thiamine HCl (Vitamin B1 Inj) 100 mg IV Q8H [facility] Last Admin: 05/21/17 13:44 Dose: 100 mg Timolol Maleate (Timoptic 0.5% Oph Soln) 1 drop OU BID [facility] Last Admin: 05/21/17 17:36 Dose: 1 drop Vitamin B Complex/Vit C/Folic Acid (Nephro-Alonzo) 1 tab PO 0800 [facility] Last Admin: 05/21/17 07:57 Dose: 1 tab - Labs Labs: 05/21/17 06:05 05/21/17 06:05 PT 18.1 SECONDS (9.7-12.2) H 05/20/17 06:23 INR 1.6 05/20/17 06:23 APTT 37 SECONDS (21-34) H D 05/18/17 09:15 Assessment and Plan - Assessment and Plan (Free Text) Assessment: ESRD ON HD M W F SEVERE MET ACIDOSIS .. WAS GIVEN 2 AMP BICARB SEPTIC SHOCK .. ON PRESSORS P : C/O CURRENT CARE VERY POOR PROGNOSIS
--- NOTE | 2017-05-21 19:28 | CP.PCM.PN ---
Subjective - Date & Time of Evaluation Date of Evaluation: 05/21/17 Time of Evaluation: 12:20 - Subjective Subjective: clinically same Objective - Vital Signs/Intake and Output Vital Signs (last 24 hours): Temp Pulse Resp BP Pulse Ox 97.3 F L 74 27 H 103/21 L 100 05/21/17 18:35 05/21/17 19:00 05/21/17 19:00 05/21/17 19:00 05/21/17 19:00 Intake and Output: 05/21/17 05/22/17 18:59 06:59 Intake Total 1996.2 13.1 Output Total 150 Balance 1846.2 13.1 - Medications Medications: Current Medications Acetaminophen (Tylenol 650mg/20.3ml Solution Ud) 650 mg PO Q6 PRN PRN Reason: Fever >100.4 F Last Admin: 05/17/17 15:42 Dose: 650 mg Albumin Human (Albumin Human 5% (12.5 Gm/250 Ml)) 12.5 gm IV MWF PRN PRN Reason: hypotension Last Admin: 05/20/17 10:25 Dose: 12.5 gm Apixaban (Eliquis) 5 mg PO BID [facility] Last Admin: 05/15/17 19:20 Dose: 5 mg Brimonidine Tartrate (Alphagan 0.2% Opht) 1 ml OU TID [facility] Last Admin: 05/21/17 17:37 Dose: 1 drop Collagenase (Santyl) 0 gm TOP DAILY [facility] Last Admin: 05/21/17 09:09 Dose: 1 applic Epoetin Maxwell (Procrit) 10,000 unit IV MWF [facility] Last Admin: 05/20/17 10:29 Dose: 10,000 unit Ergocalciferol (Drisdol 50,000 Intl Units Cap) 1 cap PO Q7D [facility] Last Admin: 05/16/17 22:02 Dose: 1 cap Hydrocortisone Sodium Succinate (Solu-Cortef) 50 mg IV Q8H [facility] Last Admin: 05/21/17 12:52 Dose: 50 mg Linezolid (Zyvox 600mg/300ml D5w) 600 mg in 300 mls @ 200 mls/hr IVPB Q12 [facility] Last Admin: 05/21/17 09:10 Dose: 200 mls/hr Propofol (Diprivan) 1,000 mg in 100 mls @ 1.762 mls/hr IV .Q24H PRN; Protocol; 5 MCG/KG/MIN PRN Reason: TITRATE PER MD ORDER Last Titration: 05/13/17 20:00 Dose: 10 mcg/kg/min, 3.524 mls/hr Micafungin Sodium 100 mg/ (Sodium Chloride) 100 mls @ 100 mls/hr IV Q24H [facility] Last Admin: 05/20/17 20:10 Dose: 100 mls/hr Norepinephrine Bitartrate 8 mg (/ Sodium Chloride) 250 mls @ 7.5 mls/hr IV .Q24H PRN; Protocol; 4 MCG/MIN PRN Reason: TITRATE PER MD ORDER Last Admin: 05/21/17 13:37 Dose: 7 mcg/min, 13.12 mls/hr Dopamine HCl/Dextrose (Dopamine 400mg/250ml D5w) 400 mg in 250 mls @ 4.5 mls/ hr IV .Q24H PRN; Protocol; 2 MCG/KG/MIN PRN Reason: TITRATE PER MD ORDER Last Titration: 05/18/17 12:14 Dose: 0 mcg/kg/min, 0 mls/hr Gentamicin Sulfate 80 mg/ (Sodium Chloride) 102 mls @ 100 mls/hr IVPB MWF [facility] Last Admin: 05/20/17 09:00 Dose: 100 mls/hr Insulin Glargine (Lantus) 10 unit SC AMHS [facility] Last Admin: 05/21/17 10:22 Dose: Not Given Insulin Human Regular (Novolin R) 0 unit SC Q4 [facility] PRN Reason: Protocol Last Admin: 05/21/17 16:05 Dose: 2 unit Latanoprost (Xalatan Opht) 0.02 ml OU HS [facility] Last Admin: 05/20/17 21:35 Dose: 0.02 ml Midodrine (Proamatine) 10 mg PO ONCE PRN PRN Reason: Diastolic blood pressure Last Admin: 05/20/17 10:26 Dose: 10 mg Nystatin (Nystop Topical Powder) 1 gm TOP Q8H [facility] Last Admin: 05/21/17 16:04 Dose: 1 applic Pantoprazole Sodium (Protonix Inj) 40 mg IVP DAILY [facility] Last Admin: 05/21/17 09:09 Dose: 40 mg Potassium Phos/Sodium Phos (Neutra-Phos) 1 pkt PO BIDPC [facility] Last Admin: 05/21/17 17:37 Dose: 1 pkt Rosuvastatin Calcium (Crestor) 10 mg PO HS [facility] Last Admin: 05/20/17 22:00 Dose: Not Given Thiamine HCl (Vitamin B1 Inj) 100 mg IV Q8H [facility] Last Admin: 05/21/17 13:44 Dose: 100 mg Timolol Maleate (Timoptic 0.5% Ophth Soln) 1 drop OU BID [facility] Last Admin: 05/21/17 17:36 Dose: 1 drop Vitamin B Complex/Vit C/Folic Acid (Nephro-Alonzo) 1 tab PO 0800 [facility] Last Admin: 05/21/17 07:57 Dose: 1 tab - Labs Labs: 05/21/17 06:05 05/21/17 06:05 PT 18.1 SECONDS (9.7-12.2) H 05/20/17 06:23 INR 1.6 05/20/17 06:23 APTT 37 SECONDS (21-34) H D 05/18/17 09:15
[2017-05-21] MEDS: Micafungin 100 MG in Sodium Chloride 0.9% 100 ML IV SCH (19:45)
[2017-05-21] MEDS: Latanoprost 2.5 ml Opht Soln OU SCH (21:00)
[2017-05-22] MEDS: Nystatin 100,000 Units/gm Topical Pow(15 gm) TOP SCH ×3 (00:50→16:00)
[2017-05-22] MEDS: (Novolin R) Insulin Human Regular 100 units/ml vial SC SCH ×5 (04:00→17:19)
[2017-05-22] MEDS: Thiamine 100 mg/ml Inj IV SCH ×2 (06:35→15:00)
[2017-05-22] MEDS: Norepinephrine 8 MG in Sodium Chloride 0.9% 242 ML IV PRN ×2 (06:35→12:31)
[2017-05-22 06:54] LABS: EOS # 0.1 K/uL (0.0-0.7)
[2017-05-22 07:37] LABS: MONO % 1.7 % (0.0-10.0)
[2017-05-22 07:45] LABS: BASO % 0.1 % (0.0-2.0); EOS % 0.5 % (0.0-4.0); HEMATOCRIT 35.2 % (34.0-47.0); LYMPH # 4.1 K/uL (1.0-4.3); LYMPH % 15.7 % (20.0-40.0); MEAN CELL VOLUME 102.8 fL (81.0-99.0); MEAN CORPUSCULAR HEMOGLOBIN 31.1 pg (27.0-31.0); MEAN CORPUSCULAR HGB CONC 30.2 g/dL (33.0-37.0); MEAN PLATELET VOLUME 11.4 fL (7.2-11.7); MONO # 0.4 K/uL (0.0-0.8); RED CELL DISTRIBUTION WIDTH 18.3 % (11.5-14.5); WHITE BLOOD COUNT 26.3 K/uL (4.8-10.8)
[2017-05-22 07:51] LABS: PLATELET COUNT 28 K/uL (130-400)
[2017-05-22 07:52] LABS: NRBC % 2.2 % (0.0-2.0)
[2017-05-22 07:54] LABS: GFR AFRICAN-AMERICAN 32
[2017-05-22 07:57] LABS: ALB/GLOB RATIO 1.4 (1.0-2.1); ALKALINE PHOSPHATASE 352 U/L (38-126); ALT/SGPT 184 U/L (9-52); AST/SGOT 732 U/L (14-36); BILIRUBIN,TOTAL 2.1 mg/dL (0.2-1.3); BLOOD UREA NITROGEN 30 mg/dL (7-17); CALCIUM 6.4 mg/dl (8.6-10.4); CARBON DIOXIDE < 5 mmol/L (22-30); CHLORIDE 93 mmol/L (98-107); GLUCOSE,RANDOM 109 mg/dL (65-105); MAGNESIUM 2.1 mg/dL (1.6-2.3); PHOSPHOROUS 11.7 mg/dL (2.5-4.5); POTASSIUM 7.4 mmol/L (3.6-5.2); SODIUM 135 mmol/L (132-148); TOTAL PROTEIN 3.7 g/dL (6.3-8.3)
[2017-05-22] MEDS: Multivitamin Vitamin B Complex (Nephro-Vite) Tab PO SCH (08:00)
[2017-05-22] MEDS: Potassium & Sodium Phosphate PO SCH ×2 (09:23→17:23)
[2017-05-22] MEDS: Epoetin Alfa 10,000 unit/ml Dialysis IV SCH (09:24)
[2017-05-22] MEDS ORDERED: Sodium Bicarbonate (8.4%) 50 Meq Syringe IVP ONE ×3 (09:34→10:11)
[2017-05-22] MEDS ORDERED: Calcium Gluconate 4.65 mEq/10 ml Inj IVP ONE (09:36)
[2017-05-22] MEDS ORDERED: Dextrose 50% VIAL Inj (50 ml) IV STA ×2 (09:36→17:57)
[2017-05-22] MEDS ORDERED: (Novolin R) Insulin Human Regular 100 units/ml vial SC ONE (09:36)
[2017-05-22] MEDS ORDERED: Albuterol 0.083% Inhal Sol (2.5 mg/3 mL) UD INH ONE (09:37)
[2017-05-22] MEDS ORDERED: Sodium Bicarbonate (8.4%) 50 Meq Syringe ONE (09:40)
[2017-05-22] MEDS ORDERED: Dextrose 50% VIAL Inj (50 ml) IV ONE ×4 (09:43→18:04)
[2017-05-22 10:07] LABS: NEUTROPHIL 45 % (50-75); NUCLEATED RED BLOOD CELL 5 % (0-0); TOTAL CELLS COUNTED 100
[2017-05-22] MEDS ORDERED: (Novolin R) Insulin Human Regular 100 units/ml vial IV ONE (10:09)
[2017-05-22] MEDS: Collagenase 250 Units/gm Ointment(30 gm) TOP SCH (10:11)
[2017-05-22] MEDS: Linezolid 600 mg in D5W 300 ml 600 MG/300 ML BAG IVPB SCH (10:12)
[2017-05-22] MEDS: Brimonidine 0.2% Opth Sol (5ml) OU SCH ×3 (10:13→17:22)
[2017-05-22] MEDS: (Lantus) Insulin Glargine, Recombinant SC SCH (10:28)
--- NOTE | 2017-05-22 11:13 | CP.CCUPN ---
<Poonam Morel - Last Filed: 05/22/17 11:10> CCU Subjective - Physician Review Subjective (Free Text): 05/22/17 11:10 Patient seen and examined at bedside. Hypotensive overnight/early this AM and no read on the monitor. Patient intubated/sedated. ROS unattainable. CCU Objective - Vital Signs / Intake & Output Intake and Output (Last 8hrs): Intake & Output 05/21/17 05/22/17 05/22/17 22:59 06:59 14:59 Intake Total 1875.1 410.7 82.5 Output Total 150 0 Balance 1725.1 410.7 82.5 Weight 130 lb 1.164 oz Intake: IV 110 180 Intake, IV Amount 501.1 230.7 82.5 Right IJ Side Port 400 75.0 37.5 Right PICC 101.1 155.7 45 Blood Product 964 Apheresis Rbc Cp2d As3 Lr 282 2nd Unit [id number] Apheresis Rbc Cp2d As3 Lr 282 2nd Unit [id number] Other 300 Apheresis Rbc Cp2d As3 Lr 100 2nd Unit [id number] Apheresis Rbc Cp2d As3 Lr 100 2nd Unit [id number] Output: Urine 0 Urine, Voided 0 Stool 150 0 - Physical Exam Head: Positive for: Atraumatic Pupils: Positive for: PERRL Extroacular Muscles: Positive for: EOMI Conjunctiva: Positive for: Normal Mouth: Positive for: Other (ET tube ) Respiratory/Chest: Positive for: Clear to Auscultation, Good Air Exchange, Other (intubated ). Negative for: Respiratory Distress, Accessory Muscle Use, Wheezes, Rales, Rhonchi Cardiovascular: Positive for: Normal S1, S2, Tachycardic Abdomen: Positive for: Feeding Tubes. Negative for: Tenderness, Distention Upper Extremity: Positive for: Cyanosis (fingertips ), Edema Lower Extremity: Positive for: Edema, Other (s/p left AKA, wound of surgical site with wound vac ) Neurological: Positive for: Other (Intubated and sedated ) Skin: Positive for: Warm, Dry, Pale Psychiatric: Positive for: Alert - Medications Active Medications: Active Medications Generic Name Dose Route Start Last Admin Trade Name Freq PRN Reason Stop Dose Admin Acetaminophen 650 mg 05/13/17 09:40 12/24/17 15:42 Tylenol 650mg/20.3ml Solution Ud PO 650 mg Q6 PRN Administration Fever >100.4 F Albumin Human 12.5 gm 05/13/17 12:00 05/20/17 10:25 Albumin Human 5% (12.5 Gm/250 Ml) IV 12.5 gm MWF PRN Administration hypotension Apixaban 5 mg 05/13/17 10:00 05/15/17 19:20 Eliquis PO 5 mg BID ELINA Administration Brimonidine Tartrate 1 ml 04/12/17 10:00 05/22/17 10:13 Alphagan 0.2% Opht OU 1 drop TID ELINA Administration Collagenase 0 gm 05/12/17 11:15 05/22/17 10:11 Santyl TOP Not Given DAILY ELINA Epoetin Maxwell 10,000 unit 04/27/17 12:00 05/22/17 09:24 Procrit IV Not Given MWF ELINA Ergocalciferol 1 cap 04/11/17 22:30 05/16/17 22:02 Drisdol 50,000 Intl Units Cap PO 1 cap Q7D ELINA Administration Hydrocortisone Sodium Succinate 50 mg 05/17/17 12:45 05/22/17 04:00 Solu-Cortef IV 50 mg Q8H ELINA Administration Linezolid 600 mg in 300 mls @ 200 mls/hr 05/12/17 22:00 05/22/17 10:12 Zyvox 600mg/300ml D5w IVPB 200 mls/hr Q12 ELINA Administration Propofol 1,000 mg in 100 mls @ 1.762 mls/hr 05/13/17 15:41 05/13/17 20:00 Diprivan IV 10 mcg/kg/min .Q24H PRN 3.524 mls/hr TITRATE PER MD ORDER Titration Protocol 5 MCG/KG/MIN Micafungin Sodium 100 mg/ 100 mls @ 100 mls/hr 05/14/17 20:00 05/21/17 19:45 Sodium Chloride IV 100 mls/hr Q24H ELINA Administration Norepinephrine Bitartrate 8 mg 250 mls @ 7.5 mls/hr 05/16/17 07:13 05/22/17 06:35 / Sodium Chloride IV 20 mcg/min .Q24H PRN 37.5 mls/hr TITRATE PER MD ORDER Administration Protocol 4 MCG/MIN Dopamine HCl/Dextrose 400 mg in 250 mls @ 4.5 mls/hr 05/18/17 11:00 05/22/17 06:00 Dopamine 400mg/250ml D5w IV 20 mcg/kg/min .Q24H PRN 45 mls/hr TITRATE PER MD ORDER Titration Protocol 2 MCG/KG/MIN Gentamicin Sulfate 80 mg/ 102 mls @ 100 mls/hr 05/20/17 09:00 05/22/17 09:00 Sodium Chloride IVPB 100 mls/hr MWF ELINA Administration Insulin Glargine 10 unit 05/14/17 22:00 05/22/17 10:28 Lantus SC Not Given AMHS ELINA Insulin Human Regular 0 unit 05/14/17 21:05 05/22/17 08:00 Novolin R SC Not Given Q4 ELINA Protocol Latanoprost 0.02 ml 04/12/17 22:00 05/21/17 21:00 Xalatan Opht OU 0.02 ml HS ELINA Administration Midodrine 10 mg 04/27/17 11:04 05/20/17 10:26 Proamatine PO 10 mg ONCE PRN Administration Diastolic blood pressure Nystatin 1 gm 05/11/17 15:51 05/22/17 07:52 Nystop Topical Powder TOP 1 applic Q8H ELINA Administration Pantoprazole Sodium 40 mg 05/17/17 10:00 05/22/17 10:30 Protonix Inj IVP 40 mg DAILY ELINA Administration Potassium Phos/Sodium Phos 1 pkt 05/13/17 09:00 05/22/17 09:23 Neutra-Phos PO Not Given BIDPC ELINA Rosuvastatin Calcium 10 mg 04/12/17 22:00 05/21/17 22:00 Crestor PO Not Given HS ELINA Thiamine HCl 100 mg 04/11/17 22:30 05/22/17 06:35 Vitamin B1 Inj IV 100 mg Q8H ELINA Administration Timolol Maleate 1 drop 04/12/17 10:00 05/22/17 10:13 Timoptic 0.5% Ophth Soln OU 1 drop BID ELINA Administration Vitamin B Complex/Vit C/Folic Acid 1 tab 04/12/17 08:00 05/22/17 08:00 Nephro-Alonzo PO Not Given 0[facility] - Patient Studies Lab Studies: Lab Studies 05/22/17 05/22/17 05/22/17 Range/Units 06:43 06:43 04:09 WBC 26.3 H (4.8-10.8) K/uL RBC 3.43 L (3.80-5.20) Mil/uL Hgb 10.6 L D (11.0-16.0) g/dL Hct 35.2 (34.0-47.0) % MCV 102.8 H (81.0-99.0) fL MCH 31.1 H (27.0-31.0) pg MCHC 30.2 L (33.0-37.0) g/dL RDW 18.3 H (11.5-14.5) % Plt Count 28 L* D (130-400) K/uL MPV 11.4 (7.2-11.7) fL Neut % (Auto) 82.0 H (50.0-75.0) % Lymph % (Auto) 15.7 L (20.0-40.0) % [place] % (Auto) 1.7 (0.0-10.0) % Eos % (Auto) 0.5 (0.0-4.0) % Baso % (Auto) 0.1 (0.0-2.0) % Neut # 21.6 H (1.8-7.0) K/uL Lymph # 4.1 (1.0-4.3) K/uL [place] # 0.4 (0.0-0.8) K/uL Eos # 0.1 (0.0-0.7) K/uL Baso # 0.0 (0.0-0.2) K/uL Neutrophils % (Manual) 45 L (50-75) % Band Neutrophils % 29 H* (0-2) % Lymphocytes % (Manual) 22 (20-40) % Monocytes % (Manual) 4 (0-10) % Nucleated RBC % 5 H (0-0) % Platelet Estimate Decreased L (NORMAL) Hypochromasia (manual) Slight Poikilocytosis (manual Slight Anisocytosis (manual) Slight Microcytosis (manual) Slight Macrocytosis (manual) Slight Ovalocytes Slight Karen Cells Slight Sodium 135 (132-148) mmol/L Potassium 7.4 H* D (3.6-5.2) mmol/L Chloride 93 L (98-107) mmol/L Carbon Dioxide < 5 L* (22-30) mmol/L Anion Gap 45 H (10-20) BUN 30 H (7-17) mg/dL Creatinine 1.9 H (0.7-1.2) mg/dL Est GFR ( Amer) 32 Est GFR (Non-Af Amer) 26 POC Glucose (mg/dL) 100 (65-110) mg/dL Random Glucose 109 H (65-105) mg/dL Calcium 6.4 L (8.6-10.4) mg/dl Phosphorus 11.7 H (2.5-4.5) mg/dL Magnesium 2.1 (1.6-2.3) mg/dL Total Bilirubin 2.1 H (0.2-1.3) mg/dL AST 732 H D (14-36) U/L ALT 184 H (9-52) U/L Alkaline Phosphatase 352 H (38-126) U/L Total Protein 3.7 L (6.3-8.3) g/dL Albumin 2.1 L (3.5-5.0) g/dL Globulin 1.6 L (2.2-3.9) gm/dL Albumin/Globulin Ratio 1.4 (1.0-2.1) Blood Type Antibody Screen 05/21/17 05/21/17 05/21/17 Range/Units 23:41 19:52 16:01 WBC (4.8-10.8) K/uL RBC (3.80-5.20) Mil/uL Hgb (11.0-16.0) g/dL Hct (34.0-47.0) % MCV (81.0-99.0) fL MCH (27.0-31.0) pg MCHC (33.0-37.0) g/dL RDW (11.5-14.5) % Plt Count (130-400) K/uL MPV (7.2-11.7) fL Neut % (Auto) (50.0-75.0) % Lymph % (Auto) (20.0-40.0) % [place] % (Auto) (0.0-10.0) % Eos % (Auto) (0.0-4.0) % Baso % (Auto) (0.0-2.0) % Neut # (1.8-7.0) K/uL Lymph # (1.0-4.3) K/uL [place] # (0.0-0.8) K/uL Eos # (0.0-0.7) K/uL Baso # (0.0-0.2) K/uL Neutrophils % (Manual) (50-75) % Band Neutrophils % (0-2) % Lymphocytes % (Manual) (20-40) % Monocytes % (Manual) (0-10) % Nucleated RBC % (0-0) % Platelet Estimate (NORMAL) Hypochromasia (manual) Poikilocytosis (manual Anisocytosis (manual) Microcytosis (manual) Macrocytosis (manual) Ovalocytes [place] Cells Sodium (132-148) mmol/L Potassium (3.6-5.2) mmol/L Chloride (98-107) mmol/L Carbon Dioxide (22-30) mmol/L Anion Gap (10-20) BUN (7-17) mg/dL Creatinine (0.7-1.2) mg/dL Est GFR ( Amer) Est GFR (Non-Af Amer) POC Glucose (mg/dL) 115 H 86 168 H (65-110) mg/dL Random Glucose (65-105) mg/dL Calcium (8.6-10.4) mg/dl Phosphorus (2.5-4.5) mg/dL Magnesium (1.6-2.3) mg/dL Total Bilirubin (0.2-1.3) mg/dL AST (14-36) U/L ALT (9-52) U/L Alkaline Phosphatase (38-126) U/L Total Protein (6.3-8.3) g/dL Albumin (3.5-5.0) g/dL Globulin (2.2-3.9) gm/dL Albumin/Globulin Ratio (1.0-2.1) Blood Type Antibody Screen 05/21/17 05/19/17 Range/Units 11:56 07:20 WBC (4.8-10.8) K/uL RBC (3.80-5.20) Mil/uL Hgb (11.0-16.0) g/dL Hct (34.0-47.0) % MCV (81.0-99.0) fL MCH (27.0-31.0) pg MCHC (33.0-37.0) g/dL RDW (11.5-14.5) % Plt Count (130-400) K/uL MPV (7.2-11.7) fL Neut % (Auto) (50.0-75.0) % Lymph % (Auto) (20.0-40.0) % [place] % (Auto) (0.0-10.0) % Eos % (Auto) (0.0-4.0) % Baso % (Auto) (0.0-2.0) % Neut # (1.8-7.0) K/uL Lymph # (1.0-4.3) K/uL [place] # (0.0-0.8) K/uL Eos # (0.0-0.7) K/uL Baso # (0.0-0.2) K/uL Neutrophils % (Manual) (50-75) % Band Neutrophils % (0-2) % Lymphocytes % (Manual) (20-40) % Monocytes % (Manual) (0-10) % Nucleated RBC % (0-0) % Platelet Estimate (NORMAL) Hypochromasia (manual) Poikilocytosis (manual Anisocytosis (manual) Microcytosis (manual) Macrocytosis (manual) Ovalocytes [place] Cells Sodium (132-148) mmol/L Potassium (3.6-5.2) mmol/L Chloride (98-107) mmol/L Carbon Dioxide (22-30) mmol/L Anion Gap (10-20) BUN (7-17) mg/dL Creatinine (0.7-1.2) mg/dL Est GFR ( Amer) Est GFR (Non-Af Amer) POC Glucose (mg/dL) 257 H (65-110) mg/dL Random Glucose (65-105) mg/dL Calcium (8.6-10.4) mg/dl Phosphorus (2.5-4.5) mg/dL Magnesium (1.6-2.3) mg/dL Total Bilirubin (0.2-1.3) mg/dL AST (14-36) U/L ALT (9-52) U/L Alkaline Phosphatase (38-126) U/L Total Protein (6.3-8.3) g/dL Albumin (3.5-5.0) g/dL Globulin (2.2-3.9) gm/dL Albumin/Globulin Ratio (1.0-2.1) Blood Type B POSITIVE Antibody Screen Negative Laboratory Results - last 24 hr 05/19/17 05/21/17 05/21/17 07:20 11:56 16:01 WBC RBC Hgb Hct MCV MCH MCHC RDW Plt Count MPV Neut % (Auto) Lymph % (Auto) [place] % (Auto) Eos % (Auto) Baso % (Auto) Neut # Lymph # [place] # Eos # Baso # Neutrophils % (Manual) Band Neutrophils % Lymphocytes % (Manual) Monocytes % (Manual) Nucleated RBC % Platelet Estimate Hypochromasia (manual) Poikilocytosis (manual Anisocytosis (manual) Microcytosis (manual) Macrocytosis (manual) Ovalocytes Karen Cells Sodium Potassium Chloride Carbon Dioxide Anion Gap BUN Creatinine Est GFR ( Amer) Est GFR (Non-Af Amer) POC Glucose (mg/dL) 257 H 168 H Random Glucose Calcium Phosphorus Magnesium Total Bilirubin AST ALT Alkaline Phosphatase Total Protein Albumin Globulin Albumin/Globulin Ratio Blood Type B POSITIVE Antibody Screen Negative 05/21/17 05/21/17 05/22/17 19:52 23:41 04:09 WBC RBC Hgb Hct MCV MCH MCHC RDW Plt Count MPV Neut % (Auto) Lymph % (Auto) [place] % (Auto) Eos % (Auto) Baso % (Auto) Neut # Lymph # [place] # Eos # Baso # Neutrophils % (Manual) Band Neutrophils % Lymphocytes % (Manual) Monocytes % (Manual) Nucleated RBC % Platelet Estimate Hypochromasia (manual) Poikilocytosis (manual Anisocytosis (manual) Microcytosis (manual) Macrocytosis (manual) Ovalocytes [place] Cells Sodium Potassium Chloride Carbon Dioxide Anion Gap BUN Creatinine Est GFR ( Amer) Est GFR (Non-Af Amer) POC Glucose (mg/dL) 86 115 H 100 Random Glucose Calcium Phosphorus Magnesium Total Bilirubin AST ALT Alkaline Phosphatase Total Protein Albumin Globulin Albumin/Globulin Ratio Blood Type Antibody Screen 05/22/17 05/22/17 06:43 06:43 WBC 26.3 H RBC 3.43 L Hgb 10.6 L D Hct 35.2 MCV 102.8 H MCH 31.1 H MCHC 30.2 L RDW 18.3 H Plt Count 28 L* D MPV 11.4 Neut % (Auto) 82.0 H Lymph % (Auto) 15.7 L [place] % (Auto) 1.7 Eos % (Auto) 0.5 Baso % (Auto) 0.1 Neut # 21.6 H Lymph # 4.1 [place] # 0.4 Eos # 0.1 Baso # 0.0 Neutrophils % (Manual) 45 L Band Neutrophils % 29 H* Lymphocytes % (Manual) 22 Monocytes % (Manual) 4 Nucleated RBC % 5 H Platelet Estimate Decreased L Hypochromasia (manual) Slight Poikilocytosis (manual Slight Anisocytosis (manual) Slight Microcytosis (manual) Slight Macrocytosis (manual) Slight Ovalocytes Slight [place] Cells Slight Sodium 135 Potassium 7.4 H* D Chloride 93 L Carbon Dioxide < 5 L* Anion Gap 45 H BUN 30 H Creatinine 1.9 H Est GFR ( Amer) 32 Est GFR (Non-Af Amer) 26 POC Glucose (mg/dL) Random Glucose 109 H Calcium 6.4 L Phosphorus 11.7 H Magnesium 2.1 Total Bilirubin 2.1 H AST 732 H D ALT 184 H Alkaline Phosphatase 352 H Total Protein 3.7 L Albumin 2.1 L Globulin 1.6 L Albumin/Globulin Ratio 1.4 Blood Type Antibody Screen Fingerstick Blood Sugar Results: 100 Review of Systems - Review of Systems Systems not reviewed;Unavailable: Intubated Critical Care Progress Note - Nutrition Nutrition: Nutrition Category Date Time Status NPO Diet [DIET] Diets 05/19/17 Breakfast Active Assessment/Plan - Assessment and Plan (Free Text) Assessment: 71F with a history of renal failure on HD, congestive heart failure, diabetes, hypertension, peripheral vascular disease, history of left knee below-knee amputation who was brought to the ICU for sepsis. Patient with respiratory distress during dialysis on 05/13 and intubated. Plan: 05/20/17: Eliza had a conversation with the family. Patient is now DNR. Neuro: Propofol drip Dialudid 0.5 mg IVP Q6H HEENT: brimonidine 0.2% 1 ml OU TID latanoprost 0.02 ml OU timolol 1 drop OU BID Respiratory: 05/13 - Intubated (15/450/5/60) - titrate FiO2 to maintain O2 > 92%) Blood gas: 6.94/18/290/4.6 - 2 amps of sodium bicarb given this AM at 6:15 CXR 05/15: Stable position of endotracheal tube and right PICC line. No change in left lower lobe consolidation and moderate left pleural effusion. Chest CT angio: Filling defects are noted at both upper lobes pulmonary arteries suggestive of pulmonary embolus. Large bilateral effusion. Mild cardiomegaly. Gygh-wi-[id number] periocardial effusion. Mgmd-tg-ceyumdqp anasarca. Lower lobe atelectasis due to pleural effusion. Cardiovasc: Severly hypotensive today, monitor not reading hx of diastolic CHF EF 61% 05/19: ST elevation noted on monitor, EKG and JUAN A ordered * Trop elevated 0.2190 * EKG showing possible anteroseptal infarct, age undetermined Midodrine 10 mg PRN Crestor 10 mg PO HS Timolol Maleate 1 drop OU BID ELINA Levophed and dopamine HEM: H&H: * 05/19: H&H 6.3/20.6, acute GI bleed over weekend per nursing - transfused 1 unit during dialysis * 05/21: H&H 6.3/20.7, transfuse 1U pRBCs * 05/22: H&H 10.6/35.2 PLT: 05/19: 202 05/20: 90 05/21: 56 05/22: 28 Hold Eliquis 5mg PO daily 2/2 acute GI bleed Procrit Nephro: BUN/Cr: 30/1.9 Balance +2815.[address] Ambrose consulted, help appreciated Pt undergoes hemodialysis Tu//Sat Bicarb for metabolic acidosis Ergocalcierol 1 capsule PO Q7D Procrit Fluid, Electrolytes, Diet: Netrophos BID Tube feeds Thiamine Vitamin B complex 05/15: Potassium 2.4 - Potassium Phosphate 15 mmole 255 mls @ 42.5 mls/hr 05/22: Potassium 7.4 - given albuterol, calcium gluconate, insulin 20U, 2 amps D50 Endo: DM ISS Lantus 10 units SC AMHS Accucheck Glucose Hypoglycemic protocol ID: Sepsis WBC 21.3 (trending down) Lactate * 5.3 on 05/11 and 05/13 * 3.0 on 05/15 * 10.8 05/19 * 9.9 05/20 procal > 200 (05/12) Tmax overnight 101 wound culture showing candidia tissue culture negative blood culture negative x48h Infecious Disease, Dr. Wellington consulted, help appreciated: recommends removing PICC line as source of infection Surgery, Dr. Broussard consulted, help appreciated: Examined AV fistula site due to poor flow. Recommendation is to insert permactah and Right IJ triple lumen however patient was not stable for the OR and RIJ triple lumen dialysis catheter was inserted Fluconazole 200 mg IVPB q24h Nystatin 1 g TOP Q8 Linezolid 600 mg Q12 Cefepime 1 g QD Wound vac for left AKA wound - not likely the source of elevated WBC count. Plans to change wound vac today GI - acute GI bleed with probable ischemic liver damage 05/20: Called Dr. Daily today to see the patient for new bleeding per rectum AST/ALT: * 05/17: 3558/510 - possibly ischemic damage to the liver * 05/18: 2976/552 * 05/20: 1228/258 * 05/21: 593/184 TBili: 1.1 Prophylactic Care GI: Protonix 40 mg PO daily PEG tube feedings SCD to right lower extremity <Stalin John S - Last Filed: 05/22/17 17:19> CCU Objective - Vital Signs / Intake & Output Vital Signs (Last 4 hours): Vital Signs BP 05/22/17 17:08 0/0 L Intake and Output (Last 8hrs): Intake & Output 05/22/17 05/22/17 05/22/17 06:59 14:59 22:59 Intake Total 410.7 532.5 255 Output Total 0 Balance 410.7 532.5 255 Weight 130 lb 1.164 oz Intake: IV 180 450 255 Intake, IV Amount 230.7 82.5 Right IJ Side Port 75.0 37.5 Right PICC 155.7 45 Output: Urine 0 Urine, Voided 0 Stool 0 - Medications Active Medications: Active Medications Generic Name Dose Route Start Last Admin Trade Name Freq PRN Reason Stop Dose Admin Acetaminophen 650 mg 05/13/17 09:40 05/17/17 15:42 Tylenol 650mg/20.3ml Solution Ud PO 650 mg Q6 PRN Administration Fever >100.4 F Albumin Human 12.5 gm 05/13/17 12:00 05/20/17 10:25 Albumin Human 5% (12.5 Gm/250 Ml) IV 12.5 gm MWF PRN Administration hypotension Apixaban 5 mg 05/13/17 10:00 05/15/17 19:20 Eliquis PO 5 mg BID ELINA Administration Brimonidine Tartrate 1 ml 04/12/17 10:00 05/22/17 14:00 Alphagan 0.2% Opht OU 1 drop TID ELINA Administration Collagenase 0 gm 05/12/17 11:15 05/22/17 10:11 Santyl TOP Not Given DAILY ELINA Epoetin Maxwell 10,000 unit 04/27/17 12:00 05/22/17 09:24 Procrit IV Not Given MWF ELINA Ergocalciferol 1 cap 04/11/17 22:30 05/16/17 22:02 Drisdol 50,000 Intl Units Cap PO 1 cap Q7D ELINA Administration Hydrocortisone Sodium Succinate 50 mg 05/17/17 12:45 05/22/17 12:45 Solu-Cortef IV 50 mg Q8H ELINA Administration Linezolid 600 mg in 300 mls @ 200 mls/hr 05/12/17 22:00 05/22/17 10:12 Zyvox 600mg/300ml D5w IVPB 200 mls/hr Q12 ELINA Administration Propofol 1,000 mg in 100 mls @ 1.762 mls/hr 05/13/17 15:41 05/13/17 20:00 Diprivan IV 10 mcg/kg/min .Q24H PRN 3.524 mls/hr TITRATE PER MD ORDER Titration Protocol 5 MCG/KG/MIN Micafungin Sodium 100 mg/ 100 mls @ 100 mls/hr 05/14/17 20:00 05/21/17 19:45 Sodium Chloride IV 100 mls/hr Q24H ELINA Administration Norepinephrine Bitartrate 8 mg 250 mls @ 7.5 mls/hr 05/16/17 07:13 05/22/17 12:31 / Sodium Chloride IV 20 mcg/min .Q24H PRN 37.5 mls/hr TITRATE PER MD ORDER Administration Protocol 4 MCG/MIN Dopamine HCl/Dextrose 400 mg in 250 mls @ 4.5 mls/hr 05/18/17 11:00 05/22/17 17:08 Dopamine 400mg/250ml D5w IV 20 mcg/kg/min .Q24H PRN 45 mls/hr TITRATE PER MD ORDER Administration Protocol 2 MCG/KG/MIN Gentamicin Sulfate 80 mg/ 102 mls @ 100 mls/hr 05/20/17 09:00 05/22/17 09:00 Sodium Chloride IVPB 100 mls/hr MWF ELINA Administration Morphine Sulfate 250 mg/ 250 mls @ 2 mls/hr 05/22/17 12:53 05/22/17 16:30 Dextrose IV 05/23/17 12:52 3 mg/hr .Q24H ONE 3 mls/hr Protocol Titration Insulin Glargine 10 unit 05/14/17 22:00 05/22/17 10:28 Lantus SC Not Given AMHS ELINA Insulin Human Regular 0 unit 05/14/17 21:05 05/22/17 12:08 Novolin R SC Not Given Q4 ELINA Protocol Latanoprost 0.02 ml 04/12/17 22:00 05/21/17 21:00 Xalatan Opht OU 0.02 ml HS ELINA Administration Midodrine 10 mg 04/27/17 11:04 05/20/17 10:26 Proamatine PO 10 mg ONCE PRN Administration Diastolic blood pressure Nystatin 1 gm 05/11/17 15:51 05/22/17 07:52 Nystop Topical Powder TOP 1 applic Q8H ELINA Administration Pantoprazole Sodium 40 mg 05/17/17 10:00 05/22/17 10:30 Protonix Inj IVP 40 mg DAILY ELINA Administration Potassium Phos/Sodium Phos 1 pkt 05/13/17 09:00 05/22/17 09:23 Neutra-Phos PO Not Given BIDPC ELINA Rosuvastatin Calcium 10 mg 04/12/17 22:00 05/21/17 22:00 Crestor PO Not Given HS ELINA Thiamine HCl 100 mg 04/11/17 22:30 05/22/17 15:00 Vitamin B1 Inj IV 100 mg Q8H ELINA Administration Timolol Maleate 1 drop 04/12/17 10:00 05/22/17 10:13 Timoptic 0.5% Ophth Soln OU 1 drop BID ELINA Administration Vitamin B Complex/Vit C/Folic Acid 1 tab 04/12/17 08:00 05/22/17 08:00 Nephro-Alonzo PO Not Given 0[facility] - Patient Studies Lab Studies: Lab Studies 05/22/17 05/22/17 05/22/17 Range/Units 12: 06:43 06:43 WBC 26.3 H (4.8-10.8) K/uL RBC 3.43 L (3.80-5.20) Mil/uL Hgb 10.6 L D (11.0-16.0) g/dL Hct 35.2 (34.0-47.0) % MCV 102.8 H (81.0-99.0) fL MCH 31.1 H (27.0-31.0) pg MCHC 30.2 L (33.0-37.0) g/dL RDW 18.3 H (11.5-14.5) % Plt Count 28 L* D (130-400) K/uL MPV 11.4 (7.2-11.7) fL Neut % (Auto) 82.0 H (50.0-75.0) % Lymph % (Auto) 15.7 L (20.0-40.0) % [place] % (Auto) 1.7 (0.0-10.0) % Eos % (Auto) 0.5 (0.0-4.0) % Baso % (Auto) 0.1 (0.0-2.0) % Neut # 21.6 H (1.8-7.0) K/uL Lymph # 4.1 (1.0-4.3) K/uL [place] # 0.4 (0.0-0.8) K/uL Eos # 0.1 (0.0-0.7) K/uL Baso # 0.0 (0.0-0.2) K/uL Neutrophils % (Manual) 45 L (50-75) % Band Neutrophils % 29 H* (0-2) % Lymphocytes % (Manual) 22 (20-40) % Monocytes % (Manual) 4 (0-10) % Nucleated RBC % 5 H (0-0) % Platelet Estimate Decreased L (NORMAL) Hypochromasia (manual) Slight Poikilocytosis (manual Slight Anisocytosis (manual) Slight Microcytosis (manual) Slight Macrocytosis (manual) Slight Ovalocytes Slight [place] Cells Slight Sodium 135 (132-148) mmol/L Potassium 7.4 H* D (3.6-5.2) mmol/L Chloride 93 L (98-107) mmol/L Carbon Dioxide < 5 L* (22-30) mmol/L Anion Gap 45 H (10-20) BUN 30 H (7-17) mg/dL Creatinine 1.9 H (0.7-1.2) mg/dL Est GFR ( Amer) 32 Est GFR (Non-Af Amer) 26 POC Glucose (mg/dL) 50 L (65-110) mg/dL Random Glucose 109 H (65-105) mg/dL Calcium 6.4 L (8.6-10.4) mg/dl Phosphorus 11.7 H (2.5-4.5) mg/dL Magnesium 2.1 (1.6-2.3) mg/dL Total Bilirubin 2.1 H (0.2-1.3) mg/dL AST 732 H D (14-36) U/L ALT 184 H (9-52) U/L Alkaline Phosphatase 352 H (38-126) U/L Total Protein 3.7 L (6.3-8.3) g/dL Albumin 2.1 L (3.5-5.0) g/dL Globulin 1.6 L (2.2-3.9) gm/dL Albumin/Globulin Ratio 1.4 (1.0-2.1) 05/22/17 05/21/17 05/21/17 Range/Units 04:09 23:41 19:52 WBC (4.8-10.8) K/uL RBC (3.80-5.20) Mil/uL Hgb (11.0-16.0) g/dL Hct (34.0-47.0) % MCV (81.0-99.0) fL MCH (27.0-31.0) pg MCHC (33.0-37.0) g/dL RDW (11.5-14.5) % Plt Count (130-400) K/uL MPV (7.2-11.7) fL Neut % (Auto) (50.0-75.0) % Lymph % (Auto) (20.0-40.0) % [place] % (Auto) (0.0-10.0) % Eos % (Auto) (0.0-4.0) % Baso % (Auto) (0.0-2.0) % Neut # (1.8-7.0) K/uL Lymph # (1.0-4.3) K/uL [place] # (0.0-0.8) K/uL Eos # (0.0-0.7) K/uL Baso # (0.0-0.2) K/uL Neutrophils % (Manual) (50-75) % Band Neutrophils % (0-2) % Lymphocytes % (Manual) (20-40) % Monocytes % (Manual) (0-10) % Nucleated RBC % (0-0) % Platelet Estimate (NORMAL) Hypochromasia (manual) Poikilocytosis (manual Anisocytosis (manual) Microcytosis (manual) Macrocytosis (manual) Ovalocytes [place] Cells Sodium (132-148) mmol/L Potassium (3.6-5.2) mmol/L Chloride (98-107) mmol/L Carbon Dioxide (22-30) mmol/L Anion Gap (10-20) BUN (7-17) mg/dL Creatinine (0.7-1.2) mg/dL Est GFR ( Amer) Est GFR (Non-Af Amer) POC Glucose (mg/dL) 100 115 H 86 (65-110) mg/dL Random Glucose (65-105) mg/dL Calcium (8.6-10.4) mg/dl Phosphorus (2.5-4.5) mg/dL Magnesium (1.6-2.3) mg/dL Total Bilirubin (0.2-1.3) mg/dL AST (14-36) U/L ALT (9-52) U/L Alkaline Phosphatase (38-126) U/L Total Protein (6.3-8.3) g/dL Albumin (3.5-5.0) g/dL Globulin (2.2-3.9) gm/dL Albumin/Globulin Ratio (1.0-2.1) 05/21/17 Range/Units 16:01 WBC (4.8-10.8) K/uL RBC (3.80-5.20) Mil/uL Hgb (11.0-16.0) g/dL Hct (34.0-47.0) % MCV (81.0-99.0) fL MCH (27.0-31.0) pg MCHC (33.0-37.0) g/dL RDW (11.5-14.5) % Plt Count (130-400) K/uL MPV (7.2-11.7) fL Neut % (Auto) (50.0-75.0) % Lymph % (Auto) (20.0-40.0) % [place] % (Auto) (0.0-10.0) % Eos % (Auto) (0.0-4.0) % Baso % (Auto) (0.0-2.0) % Neut # (1.8-7.0) K/uL Lymph # (1.0-4.3) K/uL [place] # (0.0-0.8) K/uL Eos # (0.0-0.7) K/uL Baso # (0.0-0.2) K/uL Neutrophils % (Manual) (50-75) % Band Neutrophils % (0-2) % Lymphocytes % (Manual) (20-40) % Monocytes % (Manual) (0-10) % Nucleated RBC % (0-0) % Platelet Estimate (NORMAL) Hypochromasia (manual) Poikilocytosis (manual Anisocytosis (manual) Microcytosis (manual) Macrocytosis (manual) Ovalocytes [place] Cells Sodium (132-148) mmol/L Potassium (3.6-5.2) mmol/L Chloride (98-107) mmol/L Carbon Dioxide (22-30) mmol/L Anion Gap (10-20) BUN (7-17) mg/dL Creatinine (0.7-1.2) mg/dL Est GFR ( Amer) Est GFR (Non-Af Amer) POC Glucose (mg/dL) 168 H (65-110) mg/dL Random Glucose (65-105) mg/dL Calcium (8.6-10.4) mg/dl Phosphorus (2.5-4.5) mg/dL Magnesium (1.6-2.3) mg/dL Total Bilirubin (0.2-1.3) mg/dL AST (14-36) U/L ALT (9-52) U/L Alkaline Phosphatase (38-126) U/L Total Protein (6.3-8.3) g/dL Albumin (3.5-5.0) g/dL Globulin (2.2-3.9) gm/dL Albumin/Globulin Ratio (1.0-2.1) Laboratory Results - last 24 hr 05/21/17 05/21/17 05/21/17 16:01 19:52 23:41 WBC RBC Hgb Hct MCV MCH MCHC RDW Plt Count MPV Neut % (Auto) Lymph % (Auto) [place] % (Auto) Eos % (Auto) Baso % (Auto) Neut # Lymph # [place] # Eos # Baso # Neutrophils % (Manual) Band Neutrophils % Lymphocytes % (Manual) Monocytes % (Manual) Nucleated RBC % Platelet Estimate Hypochromasia (manual) Poikilocytosis (manual Anisocytosis (manual) Microcytosis (manual) Macrocytosis (manual) Ovalocytes Karen Cells Sodium Potassium Chloride Carbon Dioxide Anion Gap BUN Creatinine Est GFR ( Amer) Est GFR (Non-Af Amer) POC Glucose (mg/dL) 168 H 86 115 H Random Glucose Calcium Phosphorus Magnesium Total Bilirubin AST ALT Alkaline Phosphatase Total Protein Albumin Globulin Albumin/Globulin Ratio 05/22/17 05/22/17 05/22/17 04:09 06:43 06:43 WBC 26.3 H RBC 3.43 L Hgb 10.6 L D Hct 35.2 MCV 102.8 H MCH 31.1 H MCHC 30.2 L RDW 18.3 H Plt Count 28 L* D MPV 11.4 Neut % (Auto) 82.0 H Lymph % (Auto) 15.7 L [place] % (Auto) 1.7 Eos % (Auto) 0.5 Baso % (Auto) 0.1 Neut # 21.6 H Lymph # 4.1 [place] # 0.4 Eos # 0.1 Baso # 0.0 Neutrophils % (Manual) 45 L Band Neutrophils % 29 H* Lymphocytes % (Manual) 22 Monocytes % (Manual) 4 Nucleated RBC % 5 H Platelet Estimate Decreased L Hypochromasia (manual) Slight Poikilocytosis (manual Slight Anisocytosis (manual) Slight Microcytosis (manual) Slight Macrocytosis (manual) Slight Ovalocytes Slight Karen Cells Slight Sodium 135 Potassium 7.4 H* D Chloride 93 L Carbon Dioxide < 5 L* Anion Gap 45 H BUN 30 H Creatinine 1.9 H Est GFR ( Amer) 32 Est GFR (Non-Af Amer) 26 POC Glucose (mg/dL) 100 Random Glucose 109 H Calcium 6.4 L Phosphorus 11.7 H Magnesium 2.1 Total Bilirubin 2.1 H AST 732 H D ALT 184 H Alkaline Phosphatase 352 H Total Protein 3.7 L Albumin 2.1 L Globulin 1.6 L Albumin/Globulin Ratio 1.4 05/22/17 12:17 WBC RBC Hgb Hct MCV MCH MCHC RDW Plt Count MPV Neut % (Auto) Lymph % (Auto) [place] % (Auto) Eos % (Auto) Baso % (Auto) Neut # Lymph # [place] # Eos # Baso # Neutrophils % (Manual) Band Neutrophils % Lymphocytes % (Manual) Monocytes % (Manual) Nucleated RBC % Platelet Estimate Hypochromasia (manual) Poikilocytosis (manual Anisocytosis (manual) Microcytosis (manual) Macrocytosis (manual) Ovalocytes Karen Cells Sodium Potassium Chloride Carbon Dioxide Anion Gap BUN Creatinine Est GFR ( Amer) Est GFR (Non-Af Amer) POC Glucose (mg/dL) 50 L Random Glucose Calcium Phosphorus Magnesium Total Bilirubin AST ALT Alkaline Phosphatase Total Protein Albumin Globulin Albumin/Globulin Ratio Critical Care Progress Note - Nutrition Nutrition: Nutrition Category Date Time Status NPO Diet [DIET] Diets 05/19/17 Breakfast Active Assessment/Plan (1) Pleural effusion Current Visit: No Status: Acute Attending/Attestation - Attestation I have personally seen and examined this patient.: Yes I have fully participated in the care of the patient.: Yes I have reviewed all pertinent clinical information: Yes Notes (Text): 05/22/17 17:19 patient seen and examined in the intensive care unit. Case discussed with family at length and agreed for morphine drip Prognosis grave Taper off pressors
[2017-05-22] MEDS: DOPamine 400mg/250ml D5W 400 MG/250 ML BAG IV PRN ×2 (11:43→17:08)
[2017-05-22] MEDS ORDERED: Dextrose 50% SYRINGE Inj (50 ml) IV STA ×2 (12:19→17:56)
[2017-05-22] MEDS ORDERED: Morphine Sulfate 250 MG in Dextrose 5% In Water 240 ML IV ONE (12:53)
--- NOTE | 2017-05-22 12:56 | CP.PCM.PCO ---
Physician Communication Note - Physician Communication Note Physician Communication Note: patient's is aware 's declining status. sons are coming Additional Comments - Additional Comments Additional Comments: Patient's is agreeable to making patient comfortable with morphine drip. morphine drip ordered at 12:55
--- NOTE | 2017-05-22 16:27 | PN ---
DATE: LOCATION: ICU 5. SUBJECTIVE: This 71-year-old female seen in rounds early today without significant clinical changes. Reported to be in a state of DNR without any reported hematemesis, but traces of rectal bleeding, still on dopamine. The entire chart is reviewed including but not limited to the most recent lab and radiology study results, current and the previous medication list, current and the previous medical events. The patient is still intubated with PEG tube is in place without residual bleeding or resistance. Today's lab showed white blood cells of 26.3 with low hemoglobin of 10.6 post blood transfusion with thrombocytopenia of 28 with reported abnormal ABGs today with potassium increased to 7.4, increased BUN to 30 with creatinine 1.9 with low calcium 6.4 and , total bilirubin 2.1 with increased liver function tests, most likely secondary to infectious process with low albumin 2.1. PHYSICAL EXAMINATION: GENERAL: A 71-year-old female, intubated. VITAL SIGNS: Afebrile with pulse of 90, less responding to any verbal stimuli with . HEENT: Showed pale dry oral mucous membrane. The patient is intubated with bilateral icteric sclerae. LUNGS: Scattered crepitation. Decreased air entry at bases. HEART: Positive S1 and S2. ABDOMEN: Soft with mild distention. PEG tube is in place without evidence of anterior abdominal wall cellulitis. NEUROLOGIC: No reported new neurological deficits. IMPRESSION: 1. Malnutrition. 2. Septicemia. 3. Respiratory failure. 4. Anemia. 5. Renal failure. 6. Electrolyte imbalance. 7. Recent history of gastrointestinal bleeding, could be drug induced. SUGGESTION: 1. Continue current management. 2. No further aggressive GI workup as requested by the patternmaker apprentice metal as well as the family member. Further recommendation to follow as needed only. 3. We will follow up with you [email or web address]. Thank you for letting me participate in your patient's case and management. Karena Arias MD
[2017-05-22 17:10] VITALS: BP 0/0
[2017-05-22 19:00] VITALS: RESP 15
--- NOTE | 2017-05-22 19:03 | CP.PCM.PN ---
Subjective - Date & Time of Evaluation Date of Evaluation: 05/22/17 Time of Evaluation: 18:00 - Subjective Subjective: SEEN ON RENAL F/U LOW BP .. CAN NOT TOLERATE HD WAS MADE BY DNR .. ON MORPHIN DRIP VERY POOR PROGNOSIS Objective - Vital Signs/Intake and Output Vital Signs (last 24 hours): Temp Pulse Resp BP Pulse Ox 97.9 F 55 L 15 0/0 L 100 05/22/17 04:00 05/22/17 18:00 05/22/17 18:00 05/22/17 17:08 05/22/17 02:01 Intake and Output: 05/22/17 05/23/17 18:59 06:59 Intake Total 2062.0 Balance 2062.0 - Medications Medications: Current Medications Acetaminophen (Tylenol 650mg/20.3ml Solution Ud) 650 mg PO Q6 PRN PRN Reason: Fever >100.4 F Last Admin: 05/17/17 15:42 Dose: 650 mg Albumin Human (Albumin Human 5% (12.5 Gm/250 Ml)) 12.5 gm IV MWF PRN PRN Reason: hypotension Last Admin: 05/20/17 10:25 Dose: 12.5 gm Apixaban (Eliquis) 5 mg PO BID [facility] Last Admin: 05/15/17 19:20 Dose: 5 mg Brimonidine Tartrate (Alphagan 0.2% Opht) 1 ml OU TID [facility] Last Admin: 05/22/17 17:22 Dose: 1 drop Collagenase (Santyl) 0 gm TOP DAILY [facility] Last Admin: 05/22/17 10:11 Dose: Not Given Epoetin Maxwell (Procrit) 10,000 unit IV MWF [facility] Last Admin: 05/22/17 09:24 Dose: Not Given Ergocalciferol (Drisdol 50,000 Intl Units Cap) 1 cap PO Q7D [facility] Last Admin: 05/16/17 22:02 Dose: 1 cap Hydrocortisone Sodium Succinate (Solu-Cortef) 50 mg IV Q8H [facility] Last Admin: 05/22/17 12:45 Dose: 50 mg Linezolid (Zyvox 600mg/300ml D5w) 600 mg in 300 mls @ 200 mls/hr IVPB Q12 [facility] Last Admin: 05/22/17 10:12 Dose: 200 mls/hr Propofol (Diprivan) 1,000 mg in 100 mls @ 1.762 mls/hr IV .Q24H PRN; Protocol; 5 MCG/KG/MIN PRN Reason: TITRATE PER MD ORDER Last Titration: 05/13/17 20:00 Dose: 10 mcg/kg/min, 3.524 mls/hr Micafungin Sodium 100 mg/ (Sodium Chloride) 100 mls @ 100 mls/hr IV Q24H [facility] Last Admin: 05/21/17 19:45 Dose: 100 mls/hr Norepinephrine Bitartrate 8 mg (/ Sodium Chloride) 250 mls @ 7.5 mls/hr IV .Q24H PRN; Protocol; 4 MCG/MIN PRN Reason: TITRATE PER MD ORDER Last Admin: 05/22/17 12:31 Dose: 20 mcg/min, 37.5 mls/hr Dopamine HCl/Dextrose (Dopamine 400mg/250ml D5w) 400 mg in 250 mls @ 4.5 mls/ hr IV .Q24H PRN; Protocol; 2 MCG/KG/MIN PRN Reason: TITRATE PER MD ORDER Last Admin: 05/22/17 17:08 Dose: 20 mcg/kg/min, 45 mls/hr Gentamicin Sulfate 80 mg/ (Sodium Chloride) 102 mls @ 100 mls/hr IVPB MWF [facility] Last Admin: 05/22/17 09:00 Dose: 100 mls/hr Morphine Sulfate 250 mg/ (Dextrose) 250 mls @ 2 mls/hr IV .Q24H ONE PRN Reason: Protocol Stop: 05/23/17 12:52 Last Titration: 05/22/17 16:30 Dose: 3 mg/hr, 3 mls/hr Insulin Glargine (Lantus) 10 unit SC AMHS [facility] Last Admin: 05/22/17 10:28 Dose: Not Given Insulin Human Regular (Novolin R) 0 unit SC Q4 [facility] PRN Reason: Protocol Last Admin: 05/22/17 17:19 Dose: Not Given Latanoprost (Xalatan Opht) 0.02 ml OU HS [facility] Last Admin: 05/21/17 21:00 Dose: 0.02 ml Midodrine (Proamatine) 10 mg PO ONCE PRN PRN Reason: Diastolic blood pressure Last Admin: 05/20/17 10:26 Dose: 10 mg Nystatin (Nystop Topical Powder) 1 gm TOP Q8H [facility] Last Admin: 05/22/17 16:00 Dose: 1 applic Pantoprazole Sodium (Protonix Inj) 40 mg IVP DAILY [facility] Last Admin: 05/22/17 10:30 Dose: 40 mg Potassium Phos/Sodium Phos (Neutra-Phos) 1 pkt PO BIDPC [facility] Last Admin: 05/22/17 17:23 Dose: Not Given Rosuvastatin Calcium (Crestor) 10 mg PO HS [facility] Last Admin: 05/21/17 22:00 Dose: Not Given Thiamine HCl (Vitamin B1 Inj) 100 mg IV Q8H [facility] Last Admin: 05/22/17 15:00 Dose: 100 mg Timolol Maleate (Timoptic 0.5% [facility]) 1 drop OU BID [facility] Last Admin: 05/22/17 17:19 Dose: 1 drop Vitamin B Complex/Vit C/Folic Acid (Nephro-Alonzo) 1 tab PO 0800 [facility] Last Admin: 05/22/17 08:00 Dose: Not Given - Labs Labs: 05/22/17 06:43 05/22/17 06:43 PT 18.1 SECONDS (9.7-12.2) H 05/20/17 06:23 INR 1.6 05/20/17 06:23 APTT 37 SECONDS (21-34) H D 05/18/17 09:15 Assessment and Plan - Assessment and Plan (Free Text) Assessment: VERY POOR PROGNOSIS C/O MORPHIN DRIP COMFORT CARE
[2017-05-22 19:07] VITALS: TEMP 96
[2017-05-22] MEDS ORDERED: Norepinephrine 16 MG in Sodium Chloride 0.9% 500 ML IV PRN (19:15)
--- NOTE | 2017-05-22 19:43 | CP.PCM.PN ---
Subjective - Date & Time of Evaluation Date of Evaluation: 05/22/17 Time of Evaluation: 14:40 - Subjective Subjective: clinically same Objective - Vital Signs/Intake and Output Vital Signs (last 24 hours): Temp Pulse Resp BP Pulse Ox 96.0 F L 58 L 15 0/0 L 100 05/22/17 16:00 05/22/17 19:00 05/22/17 19:00 05/22/17 17:08 05/22/17 02:01 Intake and Output: 05/22/17 05/23/17 18:59 06:59 Intake Total 2062.0 85.5 Balance 2062.0 85.5 - Medications Medications: Current Medications Acetaminophen (Tylenol 650mg/20.3ml Solution Ud) 650 mg PO Q6 PRN PRN Reason: Fever >100.4 F Last Admin: 05/17/17 15:42 Dose: 650 mg Albumin Human (Albumin Human 5% (12.5 Gm/250 Ml)) 12.5 gm IV MWF PRN PRN Reason: hypotension Last Admin: 05/20/17 10:25 Dose: 12.5 gm Apixaban (Eliquis) 5 mg PO BID [facility] Last Admin: 05/15/17 19:20 Dose: 5 mg Brimonidine Tartrate (Alphagan 0.2% Opht) 1 ml OU TID [facility] Last Admin: 05/22/17 17:22 Dose: 1 drop Collagenase (Santyl) 0 gm TOP DAILY [facility] Last Admin: 05/22/17 10:11 Dose: Not Given Epoetin Maxwell (Procrit) 10,000 unit IV MWF [facility] Last Admin: 05/22/17 09:24 Dose: Not Given Ergocalciferol (Drisdol 50,000 Intl Units Cap) 1 cap PO Q7D [facility] Last Admin: 05/16/17 22:02 Dose: 1 cap Hydrocortisone Sodium Succinate (Solu-Cortef) 50 mg IV Q8H [facility] Last Admin: 05/22/17 12:45 Dose: 50 mg Linezolid (Zyvox 600mg/300ml D5w) 600 mg in 300 mls @ 200 mls/hr IVPB Q12 [facility] Last Admin: 05/22/17 10:12 Dose: 200 mls/hr Propofol (Diprivan) 1,000 mg in 100 mls @ 1.762 mls/hr IV .Q24H PRN; Protocol; 5 MCG/KG/MIN PRN Reason: TITRATE PER MD ORDER Last Titration: 05/13/17 20:00 Dose: 10 mcg/kg/min, 3.524 mls/hr Micafungin Sodium 100 mg/ (Sodium Chloride) 100 mls @ 100 mls/hr IV Q24H [facility] Last Admin: 05/21/17 19:45 Dose: 100 mls/hr Dopamine HCl/Dextrose (Dopamine 400mg/250ml D5w) 400 mg in 250 mls @ 4.5 mls/ hr IV .Q24H PRN; Protocol; 2 MCG/KG/MIN PRN Reason: TITRATE PER MD ORDER Last Admin: 05/22/17 17:08 Dose: 20 mcg/kg/min, 45 mls/hr Gentamicin Sulfate 80 mg/ (Sodium Chloride) 102 mls @ 100 mls/hr IVPB MWF [facility] Last Admin: 05/22/17 09:00 Dose: 100 mls/hr Morphine Sulfate 250 mg/ (Dextrose) 250 mls @ 2 mls/hr IV .Q24H ONE PRN Reason: Protocol Stop: 05/23/17 12:52 Last Titration: 05/22/17 16:30 Dose: 3 mg/hr, 3 mls/hr Norepinephrine Bitartrate 16 (mg/ Sodium Chloride) 516 mls @ 7.74 mls/hr IV .Q24H PRN; Protocol; 4 MCG/MIN PRN Reason: TITRATE PER MD ORDER Insulin Glargine (Lantus) 10 unit SC [facility]HS [facility] Last Admin: 05/22/17 10:28 Dose: Not Given Insulin Human Regular (Novolin R) 0 unit SC Q4 [facility] PRN Reason: Protocol Last Admin: 05/22/17 17:19 Dose: Not Given Latanoprost (Xalatan Opht) 0.02 ml OU HS [facility] Last Admin: 05/21/17 21:00 Dose: 0.02 ml Midodrine (Proamatine) 10 mg PO ONCE PRN PRN Reason: Diastolic blood pressure Last Admin: 05/20/17 10:26 Dose: 10 mg Nystatin (Nystop Topical Powder) 1 gm TOP Q8H [facility] Last Admin: 05/22/17 16:00 Dose: 1 applic Pantoprazole Sodium (Protonix Inj) 40 mg IVP DAILY [facility] Last Admin: 05/22/17 10:30 Dose: 40 mg Potassium Phos/Sodium Phos (Neutra-Phos) 1 pkt PO BIDPC [facility] Last Admin: 05/22/17 17:23 Dose: Not Given Rosuvastatin Calcium (Crestor) 10 mg PO HS [facility] Last Admin: 05/21/17 22:00 Dose: Not Given Thiamine HCl (Vitamin B1 Inj) 100 mg IV Q8H [facility] Last Admin: 05/22/17 15:00 Dose: 100 mg Timolol Maleate (Timoptic 0.5% [facility]) 1 drop OU BID [facility] Last Admin: 05/22/17 17:19 Dose: 1 drop Vitamin B Complex/Vit C/Folic Acid (Nephro-Alonzo) 1 tab PO 0800 [facility] Last Admin: 05/22/17 08:00 Dose: Not Given - Labs Labs: 05/22/17 06:43 05/22/17 06:43 PT 18.1 SECONDS (9.7-12.2) H 05/20/17 06:23 INR 1.6 05/20/17 06:23 APTT 37 SECONDS (21-34) H D 05/18/17 09:15
[2017-05-22 20:25] VITALS: PULSE 53
--- NOTE | 2017-05-22 21:46 | CP.PCM.PRO ---
Pronouncement of Note - Clinical Findings Physical Exam: Absent Peripheral Pulses{Carotid & Femoral}, Absent Heart & Breath Sounds, No Pupillary Light Reflex, No Corneal Reflex, Pupils Fixed & Dilated, Absence of Vital Signs - Pronouncement Time Time of Pronouncement of : 21:29 - Notifications Pronouncement Notifications: Family Notified, Atending Notified [employer] Notified: Yes (NOT a candidate) - Autopsy Autopsy Requested: No [place]: [id number]
== END 2017-05-22 23:22 | DRG 870 ==
LOC: C.ER 17:28 → C.9E 20:09 → C.6T 23:15 → C.9I 04-16 16:22 → C.5S 04-23 20:15 → C.9I 05-08 12:37
PROVIDERS: ADMIT Internal Medicine; ATTEND Internal Medicine
PROC: 0BH17EZ Insertion of Endotracheal Airway into Trachea, Via Natural or Artificial Opening (ICD-10-PCS; principal; 2017-04-13)
PROC: 5A1955Z Respiratory Ventilation, Greater than 96 Consecutive Hours (ICD-10-PCS; 2017-04-13)
PROC: 5A1D70Z Performance of Urinary Filtration, Intermittent, Less than 6 Hours Per Day (ICD-10-PCS; 2017-04-15)
PROC: 0DH63UZ Insertion of Feeding Device into Stomach, Percutaneous Approach (ICD-10-PCS; 2017-05-05)
DX: A41.9 Sepsis, unspecified organism (principal); I26.99 Other pulmonary embolism without acute cor pulmonale; J96.90 Respiratory failure, unspecified, unspecified whether with hypoxia or hypercapnia; E43 Unspecified severe protein-calorie malnutrition; R65.21 Severe sepsis with septic shock; D69.6 Thrombocytopenia, unspecified; I13.2 Hypertensive heart and chronic kidney disease with heart failure and with stage 5 chronic kidney disease, or end stage renal disease; L89.153 Pressure ulcer of sacral region, stage 3; E11.22 Type 2 diabetes mellitus with diabetic chronic kidney disease; N18.6 End stage renal disease; I82.621 Acute embolism and thrombosis of deep veins of right upper extremity; I82.C21 Chronic embolism and thrombosis of right internal jugular vein; T87.44 Infection of amputation stump, left lower extremity; E87.1 Hypo-osmolality and hyponatremia; E87.2 Acidosis; I50.32 Chronic diastolic (congestive) heart failure; K62.5 Hemorrhage of anus and rectum; E11.51 Type 2 diabetes mellitus with diabetic peripheral angiopathy without gangrene; E11.65 Type 2 diabetes mellitus with hyperglycemia; D63.1 Anemia in chronic kidney disease; H40.9 Unspecified glaucoma; R62.7 Adult failure to thrive; Z99.2 Dependence on renal dialysis; Z90.49 Acquired absence of other specified parts of digestive tract; Z89.512 Acquired absence of left leg below knee; Z66 Do not resuscitate; Z51.5 Encounter for palliative care; Y83.5 Amputation of limb(s) as the cause of abnormal reaction of the patient, or of later complication, without mention of misadventure at the time of the procedure; E78.00 Pure hypercholesterolemia, unspecified; E83.39 Other disorders of phosphorus metabolism; E83.51 Hypocalcemia; E86.0 Dehydration; K21.9 Gastro-esophageal reflux disease without esophagitis; R13.10 Dysphagia, unspecified; Z16.21 Resistance to vancomycin; Z87.440 Personal history of urinary (tract) infections